=== PATIENT | female | born 1950 | race Caucasian/White ===

== ENCOUNTER 2018-02-10 10:00 | Emergency (ER) | payer OTHER, SELFPAY ==
[2018-02-10 10:03] VITALS: BP 183/64; PULSE 82; RESP 16; TEMP 36.8; O2SAT 98
--- NOTE | 2018-02-10 10:20 | ED.GENADUL_ITS ---
Disposition Clinical Impression: Dysesthesia Disposition: HOME Condition: Good Additional Instructions: May use ibuprofen 600-800 mg every 8 hours, with food, as needed for pain OR may use Aleve 500mg every 12 hours as needed for pain. May use Tylenol 650-975 mg every 4-6 hours, as needed for pain. Total daily dose should not exceed 2000 mg. Please follow-up with Dr. Nur next Wednesday as planned. Begin gabapentin as prescribed this evening. Return to the emergency department for any acute concerns. Prescriptions: Gabapentin 300 mg PO HS #30 capsule Medical Decision Making - Medical Decision Making 67-year-old female presents from home with months of left-sided electric-like pain. She is afebrile, well-appearing, in no acute distress with no focal neurologic deficits on exam. 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 Screening laboratories obtained: Essentially unremarkable, reviewed as per chart. No evidence that there is a new, acute focus problem. This is likely post stroke related. Case discussed with Dr. Nur and will initiate a course of gabapentin. Patient stable for outpatient management with follow-up in neurology clinic. Discussed return precautions with the patient and her at bedside prior to discharge. History of Present Illness - General Chief complaint: GenMedical Stated complaint: PER NANI CORDERO Time Seen by Provider: 02/10/18 10:01 Source: patient, family, RN notes reviewed Mode of arrival: ambulatory Limitations: no limitations - History of Present Illness Initial comments: Her . She states that she has had months of constant, slowly escalating left-sided pain that she describes as sharp and electric-like. It is moderate to severe, minimally improved with Tylenol. It is worse with light tapping from her or pressure. She has not had a rash, fever. She states that she has otherwise been well. No other new medications. No motor weakness, sensory deficit, difficulty with gait or speech - Related Data Zyrtec DAILY 02/01/13 Candesartan Cilexetil 32 mg PO DAILY 04/28/17 MetFORMIN CR [Glucophage Xr] 750 mg PO BID 04/28/17 Pimecrolimus [Elidel] DAILY 04/28/17 Acetaminophen [Tylenol] 650 mg PO Q4H PRN PRN tab 11/10/17 Aspirin 81 mg PO DAILY chew 05/07/17 Magnesium Oxide [Magnesium] 400 mg PO DAILY #30 tablet 05/07/17 Apixaban [Eliquis] 5 mg PO BID #180 tab 09/01/17 Liraglutide [Victoza 2-Felipe] 1.8 mg SQ DAILY ml 09/01/17 Metformin HCl 500 mg PO HS tab-cap 09/01/17 Gabapentin 300 mg PO HS #30 capsule 02/10/18 Allergies Allergy/AdvReac Type Severity Reaction Status Date / Time Iodinated Contrast- Oral and Allergy Severe Anaphylaxsis Unverified 09/01/17 09: 04 IV Dye ( TOLERATED WITH PREMEDS 05/05/17) Petlbdo-Nrx-Euv Reductase Allergy Unverified 09/01/17 09:04 Inhibitor oxycodone HCl [From Percocet] AdvReac CRAZY Unverified 09/01/17 09:04 Review of Systems Other: 6 systems reviewed, otherwise negative Past Medical History - Past Medical History Medical history: CVA/TIA, diabetes, hyperlipidemia, hypertension - Social History Alcohol use: none Drug use: none General Exam - General Limitations: no limitations General appearance: alert, in no apparent distress - Head Head exam: Present: atraumatic, normocephalic - Eye Eye exam: Present: PERRL, EOMI - ENT ENT exam: Present: normal exam - Neck Neck exam: Present: normal inspection, full ROM - Respiratory Respiratory exam: Present: normal lung sounds bilaterally. Absent: respiratory distress - Cardiovascular Cardiovascular Exam: Present: regular rate, normal rhythm, other - GI/Abdominal GI/Abdominal exam: Present: soft. Absent: distended, tenderness - Extremities Exam Extremities exam: Present: normal inspection, normal capillary refill - Neurological Exam Neurological exam: Present: alert, oriented X3, CN II-XII intact, other ( Patient states mild increase in pain with palpation of left arm and leg.). Absent: motor sensory deficit - Psychiatric Psychiatric exam: Present: normal affect, normal mood - Skin Skin exam: Present: warm, dry, intact Course Vital Signs - 24 hr 02/10/18 10:03 Temperature 36.8 C Pulse 82 Respiratory 16 Rate Blood Pressure 183/64 Pulse Oximetry 98
[2018-02-10] MEDS: Ibuprofen 800 MG TAB PO (10:35)
[2018-02-10 10:39] LABS: Abs Immature Grans 0.02 k/cumm (0.0-0.09); Absolute Basophil Count 0.05 k/cumm (0.0-0.2); Absolute Eosinophil Count 0.34 k/cumm (0.0-0.7); Absolute Lymphocyte Count 3.64 k/cumm (1.2-3.4); Absolute Monocyte Count 0.55 k/cumm (0.11-0.7); Basophils % 0.6; HCT 41.6 % (36.0-46.0); HGB 13.8 g/dL (12.0-15.5); Immature Grans % 0.2; Lymphocytes % 42.3; Mean Corp. HGB Concentration 33.2 g/dL (32.0-36.0); Mean Corpuscular Hemoglobin 29.5 pg (27.0-33.0); Mean Corpuscular Volume 88.9 fL (80-95); Mean Platelet Volume 9.6 fL (8.0-11.0); Monocytes % 6.4; Neutrophils % 46.5; Platelet Count 324 x1000/uL (130-400); RBC 4.68 m/cumm (4.00-5.20); RBC Distribution Width 13.6 % (11.7-14.6)
[2018-02-10 10:51] LABS: ALT 24 U/L (12-78); AST 21 U/L (15-37); Albumin 3.6 g/dL (3.4-5.0); Alkaline Phosphatase 58 U/L (46-116); Anion Gap 6.8 mmol/L (3-11); BUN 17 mg/dL (7-18); Bilirubin, Total 0.3 mg/dL (0.2-1.0); C-Reactive Protein 1.83 mg/dL (0.0-0.3); CO2 25.2 mmol/L (21.0-32.0); CREATININE 0.92 mg/dL (0.55-1.02); Calcium 9.6 mg/dL (8.5-10.1); Chloride 105 mmol/L (98-107); Creatine Kinase 90 U/L (26-192); Glucose 185 mg/dL (70-100); Magnesium 1.6 mg/dL (1.8-2.4); Potassium 4.3 mmol/L (3.5-5.1); Sodium 137 mmol/L (136-145); Total Protein 7.5 g/dL (6.4-8.2)
== END 2018-02-10 11:54 | disposition home or self-care (01) ==
PROVIDERS: Emergency Provider Emergency Medicine; PCP Internal Medicine
DX: R20.8 Other disturbances of skin sensation (principal); E11.9 Type 2 diabetes mellitus without complications; Z79.4 Long term (current) use of insulin; I10 Essential (primary) hypertension
CPT/HCPCS: 36415; 80053; 82550; 99283; 83735; 85025; 86140

== ENCOUNTER → 2018-02-16 09:30 | Outpatient (CLI) | payer OTHER, SELFPAY | PROVIDERS: PCP Internal Medicine; Visit Provider Psychiatry & Neurology Neurology | DX: I69.320 Aphasia following cerebral infarction (principal); I69.351 Hemiplegia and hemiparesis following cerebral infarction affecting right dominant side; I69.319 Unspecified symptoms and signs involving cognitive functions following cerebral infarction; I51.7 Cardiomegaly | CPT/HCPCS: 99214 ==

== ENCOUNTER 2018-11-02 21:55 | Outpatient (REF) | payer OTHER, SELFPAY | END 2018-11-02 22:15 | LOC: NCHCN 21:55 | PROVIDERS: PCP Internal Medicine; Visit Provider Nurse Practitioner Family | DX: N39.0 Urinary tract infection, site not specified (principal) | CPT/HCPCS: 87077; 87086; 87186 ==

== ENCOUNTER 2018-11-21 16:17 | Outpatient (REF) | payer OTHER, SELFPAY ==
[2018-11-21 21:37] LABS: Bilirubin Negative (Negative); Blood Moderate (Negative); Clarity Sl Cloudy; Glucose Negative (Negative); Ketones Negative (Negative); Leukocyte Esterase Moderate (Negative); Nitrite Negative (Negative); Urobilinogen 0.2 EU/dL (Up TO 0.2); pH 5.5 (5-8)
[2018-11-21 21:58] LABS: Bacteria Moderate HPF (Negative); C & S Indicated? Yes; Casts Negative LPF (Negative); Crystals Negative HPF (Negative); Epithelial Cells Few HPF (Negative); Mucus Negative (Negative); Other Cells Few Transitional (Negative)
[2018-11-21 21:59] LABS: WBC 20-50 HPF (0-5)
== END 2018-11-21 16:37 ==
LOC: NCHCN 16:17
PROVIDERS: PCP Internal Medicine; Visit Provider Nurse Practitioner Family
DX: N39.0 Urinary tract infection, site not specified (principal)
CPT/HCPCS: 81003; 81015; 87086

== ENCOUNTER 2018-11-22 11:25 | Outpatient (REF) | payer OTHER, SELFPAY | END 2018-11-22 11:45 | LOC: NCHCN 11:25 | PROVIDERS: PCP Internal Medicine; Visit Provider Nurse Practitioner Family | DX: R19.7 Diarrhea, unspecified (principal); N39.0 Urinary tract infection, site not specified | CPT/HCPCS: 87329; 87086; 87177 ==

== ENCOUNTER 2018-12-08 10:32 | Outpatient (CLI) | payer OTHER, SELFPAY ==
--- NOTE | 2018-12-08 11:38 | DI.RAD_ITS ---
SYMPTOM/DIAGNOSIS: OVERFLOW INCONTINENCE, N39.490 DIARRHEA R19.7 KUB: Bowel gas pattern is nonspecific. There is no evidence of gross organomegaly. There is no evidence of a mass. Numerous calcifications in the pelvis would be consistent with calcified phleboliths. SUMMARY: The examination is within normal limits.
== END 2018-12-08 10:52 ==
PROVIDERS: PCP Internal Medicine; Visit Provider Nurse Practitioner Family
DX: N39.490 Overflow incontinence (principal); R19.7 Diarrhea, unspecified
CPT/HCPCS: 74018

== ENCOUNTER 2018-12-08 11:28 | Outpatient (REF) | payer OTHER, SELFPAY ==
[2018-12-08 21:39] LABS: Abs Immature Grans 0.01 k/cumm (0.0-0.09); Absolute Basophil Count 0.02 k/cumm (0.0-0.2); Absolute Eosinophil Count 0.25 k/cumm (0.0-0.7); Absolute Lymphocyte Count 2.84 k/cumm (1.2-3.4); Absolute Monocyte Count 0.62 k/cumm (0.11-0.7); Absolute Neutrophil Count 4.13 k/cumm (1.2-6.7); Basophils % 0.3; Eosinophils % 3.2; HCT 40.5 % (36.0-46.0); HGB 13.5 g/dL (12.0-15.5); Immature Grans % 0.1; Lymphocytes % 36.1; Mean Corp. HGB Concentration 33.3 g/dL (32.0-36.0); Mean Corpuscular Hemoglobin 29.6 pg (27.0-33.0); Mean Corpuscular Volume 88.8 fL (80-95); Mean Platelet Volume 10.9 fL (8.0-11.0); Monocytes % 7.9; Neutrophils % 52.4; Platelet Count 332 x1000/uL (130-400); RBC 4.56 m/cumm (4.00-5.20); RBC Distribution Width 13.5 % (11.7-14.6); White Blood Cell Count 7.87 k/cumm (4.4-10.8)
[2018-12-08 21:45] LABS: ALT 30 U/L (12-78); AST 21 U/L (15-37); Albumin 3.7 g/dL (3.4-5.0); Alkaline Phosphatase 58 U/L (46-116); Anion Gap 12.9 mmol/L (3-11); BUN 22 mg/dL (7-18); Bilirubin, Total 0.4 mg/dL (0.2-1.0); CO2 21.1 mmol/L (21.0-32.0); CREATININE 1.08 mg/dL (0.55-1.02); Calcium 10.2 mg/dL (8.5-10.1); Chloride 109 mmol/L (98-107); Estimated GFR 50.76 (mL/min/1.73m2); Glucose 112 mg/dL (70-100); Potassium 4.6 mmol/L (3.5-5.1); Sodium 143 mmol/L (136-145); Total Protein 6.7 g/dL (6.4-8.2)
== END 2018-12-08 11:48 ==
LOC: NCHCN 11:28
PROVIDERS: PCP Internal Medicine; Visit Provider Nurse Practitioner Family
DX: R19.7 Diarrhea, unspecified (principal); N39.490 Overflow incontinence
CPT/HCPCS: 80053; 87077; 85025; 87086; 87186

== ENCOUNTER 2018-12-09 20:39 | Outpatient (REF) | payer OTHER, SELFPAY | END 2018-12-09 20:59 | LOC: NCHCN 20:39 | PROVIDERS: PCP Internal Medicine; Visit Provider Nurse Practitioner Family | DX: R19.7 Diarrhea, unspecified (principal); N39.490 Overflow incontinence | CPT/HCPCS: 87324 ==

== ENCOUNTER 2019-01-23 00:21 | Outpatient (CLI) | payer OTHER, SELFPAY ==
--- NOTE | 2019-01-23 10:50 | DI.MAMMO_ITS ---
SYMPTOM/DIAGNOSIS: SCREENING, Z12.31 MAMMOGRAMS: Mammograms were interpreted according to the usual protocol including computer analysis with CAD system, tomosynthesis and C view imaging. Comparison is made with exams from [id number]. The breasts are composed of scattered fibroglandular densities, breast density, Category B. No suspicious masses or suspicious microcalcifications are seen. There has been no significant change. IMPRESSION: Category 1, negative mammogram. Yearly screening mammography is recommended. [facility] ASSESSMENT OF FINDINGS: Negative. Category 1. Patient will receive a letter notifying them of these results. BI-RADS category B. There are scattered areas of fibroglandular density.
== END 2019-01-23 00:41 ==
PROVIDERS: PCP Internal Medicine; Visit Provider Nurse Practitioner Family
DX: Z12.31 Encounter for screening mammogram for malignant neoplasm of breast (principal)
CPT/HCPCS: 77063; 77067

== ENCOUNTER → 2019-11-09 10:02 | Outpatient (BNVA) | payer OTHER, SELFPAY | PROVIDERS: PCP Internal Medicine; Referring Provider Internal Medicine; Visit Provider Urology | DX: N39.46 Mixed incontinence (principal); N39.0 Urinary tract infection, site not specified; B96.89 Other specified bacterial agents as the cause of diseases classified elsewhere; Z87.442 Personal history of urinary calculi | CPT/HCPCS: 51701; 99203; 99214 ==

== ENCOUNTER 2019-11-09 13:00 | Outpatient (REF) | payer OTHER, SELFPAY | END 2019-11-09 13:20 | LOC: LBN 13:00 | PROVIDERS: PCP Internal Medicine; Visit Provider Urology | DX: N39.0 Urinary tract infection, site not specified (principal) | CPT/HCPCS: 87077; 87086; 87186 ==

== ENCOUNTER 2019-11-16 02:47 | Outpatient (CLI) | payer OTHER, SELFPAY ==
--- NOTE | 2019-11-16 14:36 | DI.US_ITS ---
EXAM: US RENAL CLINICAL HISTORY: r/o stones/hydronephrosis,RECURRENT UTI,N39.0. TECHNIQUE: Sharma scale, color and spectral Doppler were used. COMPARISON: No exams were available for comparison FINDINGS: Renal size in cm: Right: 10.2 left: 10.5 Echogenicity: Normal Hydronephrosis: No Cyst or mass: Small bilateral renal cysts. The largest at the lower pole of the left kidney measured 1 cm. The largest right renal cysts measure 1.5 x 2.1 cm at the medial right lower pole. Nephrolithiasis: Are few small scattered echogenic foci seen in both kidneys which could represent sm all stones versus artifact. Other findings: None Bladder:Normal. Inadequate evaluation due to suboptimal distension. No mass, stone or wall thicken ing is seen. Prevoid vol: 75 cc Postvoid vol:Not measured IMPRESSION: Small bilateral renal cysts. Question small nonobstructing bilateral renal calculi versus artifact. Inadequate bladder evaluation. DATA REPOSITORY:
== END 2019-11-16 03:07 ==
PROVIDERS: PCP Internal Medicine; Visit Provider Urology
DX: N39.0 Urinary tract infection, site not specified (principal); N28.1 Cyst of kidney, acquired; Z87.442 Personal history of urinary calculi
CPT/HCPCS: 76770

== ENCOUNTER → 2019-11-17 15:31 | Outpatient (BNVA) | payer OTHER, SELFPAY | PROVIDERS: PCP Internal Medicine; Referring Provider Internal Medicine; Visit Provider Urology | DX: N39.0 Urinary tract infection, site not specified (principal); Z87.442 Personal history of urinary calculi; N28.1 Cyst of kidney, acquired | CPT/HCPCS: 99213; 99441 ==

== ENCOUNTER 2019-11-29 19:17 | Outpatient (REF) | payer OTHER, SELFPAY ==
[2019-11-29 21:35] LABS: Anion Gap 13.5 mmol/L (3-11); BUN 29 mg/dL (7-18); CO2 20.5 mmol/L (21.0-32.0); CREATININE 1.33 mg/dL (0.55-1.02); Calcium 10.7 mg/dL (8.5-10.1); Chloride 106 mmol/L (98-107); Estimated GFR 39.79 (mL/min/1.73m2); Glucose 137 mg/dL (74-106); Potassium 4.7 mmol/L (3.5-5.1); Sodium 140 mmol/L (136-145)
== END 2019-11-29 19:37 ==
LOC: NCHCN 19:17
PROVIDERS: PCP Internal Medicine
DX: I10 Essential (primary) hypertension (principal); E11.9 Type 2 diabetes mellitus without complications; E83.52 Hypercalcemia
CPT/HCPCS: 80048

== ENCOUNTER → 2019-12-04 14:25 | Outpatient (BNVA) | payer OTHER, SELFPAY | PROVIDERS: PCP Internal Medicine; Referring Provider Internal Medicine; Visit Provider Nurse Practitioner Gerontology | DX: N39.46 Mixed incontinence (principal); N39.0 Urinary tract infection, site not specified | CPT/HCPCS: 99213 ==

== ENCOUNTER 2019-12-04 18:24 | Outpatient (REF) | payer OTHER, SELFPAY | END 2019-12-04 18:44 | LOC: LBN 18:24 | PROVIDERS: PCP Internal Medicine; Visit Provider Nurse Practitioner Gerontology | DX: N39.0 Urinary tract infection, site not specified (principal) | CPT/HCPCS: 87077; 87086; 87186 ==

== ENCOUNTER 2019-12-11 01:33 | Outpatient (CLI) | payer OTHER, SELFPAY ==
[2019-12-11 16:04] LABS: ALT 28 U/L (14-59); AST 21 U/L (15-37); Albumin 3.8 g/dL (3.4-5.0); Alkaline Phosphatase 55 U/L (46-116); Anion Gap 12.1 mmol/L (3-11); BUN 18 mg/dL (7-18); Bilirubin, Total 0.4 mg/dL (0.2-1.0); CO2 21.9 mmol/L (21.0-32.0); CREATININE 1.17 mg/dL (0.55-1.02); Calcium 10.8 mg/dL (8.5-10.1); Chloride 106 mmol/L (98-107); Estimated GFR 46.14 (mL/min/1.73m2); Glucose 187 mg/dL (74-106); Potassium 4.5 mmol/L (3.5-5.1); Sodium 140 mmol/L (136-145)
[2019-12-12 11:44] LABS: Parathyroid Hormone,Intact 64 pg/mL (19-88)
== END 2019-12-11 01:53 ==
PROVIDERS: PCP Internal Medicine
DX: E83.52 Hypercalcemia (principal)
CPT/HCPCS: 36415; 80053; 83970

== ENCOUNTER → 2020-01-01 10:53 | Outpatient (BNVA) | payer OTHER, SELFPAY | PROVIDERS: PCP Internal Medicine; Referring Provider Internal Medicine; Visit Provider Nurse Practitioner Gerontology | DX: R10.32 Left lower quadrant pain (principal); N39.0 Urinary tract infection, site not specified | CPT/HCPCS: 81003; 99213 ==

== ENCOUNTER 2020-01-16 01:23 | Outpatient (CLI) | payer OTHER, SELFPAY ==
--- NOTE | 2020-01-16 07:15 | DI.US_ITS ---
EXAM: US PELVIS TRANSVAGINAL CLINICAL HISTORY: pelvic pain,R10.2 TECHNIQUE: Transabdominal and transvaginal imaging was performed using standard protocol. COMPARISON: No exams were available for comparison FINDINGS: KIDNEYS: Kidneys are symmetric in size. No evidence of renal calculi. No evidence of hydronephrosis. No renal mass or cyst identified. The patient is status post hysterectomy. The right ovary measures 3.1 x 2.2 x 1.9 cm. The left ovar y measures 2.9 x 2.2 x 2.2 cm. No focal mass or cyst is seen. DOPPLER: Color: Symmetric and uniform flow to both ovaries. No hyperemia. Duplex: Normal ovarian arterial waveforms visualized. CUL-DE-SAC: Free fluid: None. IMPRESSION: Ovaries are mildly enlarged for patient age. No cysts or masses seen. DATA REPOSITORY:
== END 2020-01-16 01:43 ==
PROVIDERS: PCP Internal Medicine; Visit Provider Obstetrics & Gynecology
DX: R10.2 Pelvic and perineal pain (principal); N83.9 Noninflammatory disorder of ovary, fallopian tube and broad ligament, unspecified
CPT/HCPCS: 76830; 76856

== ENCOUNTER 2020-03-01 11:03 | Outpatient (REF) | payer OTHER, SELFPAY ==
[2020-03-01 19:57] LABS: Albumin 3.7 g/dL (3.4-5.0); Anion Gap 12.8 mmol/L (3-11); BUN 21 mg/dL (7-18); CO2 21.2 mmol/L (21.0-32.0); CREATININE 1.08 mg/dL (0.55-1.02); Calcium 10.4 mg/dL (8.5-10.1); Chloride 102 mmol/L (98-107); Glucose 230 mg/dL (74-106); PHOSPHORUS 2.7 mg/dL (2.6-4.7); Potassium 4.7 mmol/L (3.5-5.1); Sodium 136 mmol/L (136-145)
== END 2020-03-01 11:23 ==
LOC: NCHCN 11:03
PROVIDERS: PCP Internal Medicine; Visit Provider Internal Medicine
DX: E83.52 Hypercalcemia (principal); I10 Essential (primary) hypertension
CPT/HCPCS: 80048; 82040; 84100

== ENCOUNTER → 2020-05-10 14:08 | Outpatient (BNVA) | payer OTHER, SELFPAY | PROVIDERS: PCP Internal Medicine; Referring Provider Internal Medicine; Visit Provider Urology | DX: R39.15 Urgency of urination (principal); R39.89 Other symptoms and signs involving the genitourinary system; Z87.440 Personal history of urinary (tract) infections; E11.9 Type 2 diabetes mellitus without complications | CPT/HCPCS: 81003; 99213 ==

== ENCOUNTER → 2020-05-31 17:31 | Outpatient (REF) | payer OTHER, SELFPAY ==
[2020-05-31 22:27] LABS: Anion Gap 13.7 mmol/L (3-11); BUN 26 mg/dL (7-18); CO2 21.3 mmol/L (21.0-32.0); CREATININE 1.21 mg/dL (0.55-1.02); Calcium 10.3 mg/dL (8.5-10.1); Chloride 104 mmol/L (98-107); Cholesterol 129 mg/dL (<200); Estimated GFR 44.25 (mL/min/1.73m2); Glucose 238 mg/dL (74-106); Potassium 4.8 mmol/L (3.5-5.1); Sodium 139 mmol/L (136-145); Triglyceride 233 mg/dL (<150)
[2020-05-31 22:59] LABS: Calculated LDL 41 mg/dL (<100); HDL Cholesterol 42 mg/dL (40-60)
[2020-06-03 11:35] LABS: Vitamin D 25 Total 35.5 ng/ml (30-100)
== END ==
LOC: NCHCN 17:31
PROVIDERS: PCP Internal Medicine; Visit Provider Internal Medicine
DX: E83.52 Hypercalcemia (principal); E78.5 Hyperlipidemia, unspecified
CPT/HCPCS: 80048; 80061; 82306; 84100

== ENCOUNTER 2020-08-30 15:03 | Outpatient (REF) | payer OTHER, SELFPAY ==
[2020-08-30 21:01] LABS: Anion Gap 12.3 mmol/L (3-11); BUN 20 mg/dL (7-18); CO2 21.7 mmol/L (21.0-32.0); CREATININE 1.2 mg/dL (0.55-1.02); Calcium 10.4 mg/dL (8.5-10.1); Chloride 105 mmol/L (98-107); Estimated GFR 44.68 (mL/min/1.73m2); Glucose 227 mg/dL (74-106); Potassium 4.7 mmol/L (3.5-5.1); Sodium 139 mmol/L (136-145)
[2020-09-02 09:33] LABS: Parathyroid Hormone,Intact 100 pg/mL (19-88)
== END 2020-08-30 15:04 | disposition home or self-care (01) ==
LOC: NCHCN 15:03
PROVIDERS: PCP Internal Medicine; Visit Provider Internal Medicine
DX: E83.52 Hypercalcemia (principal)
CPT/HCPCS: 80048; 83970

== ENCOUNTER 2020-09-20 11:56 | Outpatient (REF) | payer OTHER, SELFPAY ==
[2020-09-21 16:55] LABS: COVID-19 RT-PCR UVMMC Result Negative (Negative)
== END 2020-09-20 11:57 | disposition home or self-care (01) ==
LOC: NCHCN 11:56
PROVIDERS: PCP Internal Medicine; Visit Provider Internal Medicine
DX: Z20.822 Contact with and (suspected) exposure to COVID-19 (principal)
CPT/HCPCS: U0003

== ENCOUNTER 2020-10-23 02:24 | Outpatient (CLI) | payer OTHER, SELFPAY ==
--- NOTE | 2020-10-23 | DI.DEXA_ITS ---
Exam(s) XR DEXA BONE DENSITY W/WO DENA EXAM: XR DEXA BONE DENSITY W/WO DENA CLINICAL HISTORY: OSTEOPENIA,M85.80,HYPERCALCEMIA,E83.52,HYPERPARATHYROIDISM,E21.0 TECHNIQUE: COMPARISON: There are priors for comparison. The most recent is 09/21/2017. FINDINGS: Lateral Spine Image: Unremarkable. No compression deformities identified. Left hip: Total T-Score: -0.3. This compares to -0.2 on the prior examination. Total Z-Score: 1.2 T- and Z-scores: Within normal limits. Lumbar Spine: Total T-Score: 0.5. This compares with 0.3 on the prior examination. Total Z-Score: 2.5 T- and Z-scores: Within normal limits. IMPRESSION: No evidence of osteoporosis.
== END 2020-10-23 02:44 ==
PROVIDERS: PCP Internal Medicine; Visit Provider Nurse Practitioner Family
DX: M85.88 Other specified disorders of bone density and structure, other site (principal); E83.52 Hypercalcemia; E21.0 Primary hyperparathyroidism
CPT/HCPCS: 77080

== ENCOUNTER 2020-12-18 01:53 | Outpatient (CLI) | payer OTHER, SELFPAY ==
--- NOTE | 2020-12-18 10:30 | DI.US_ITS ---
APPROVED REPORT EXAM: Comprehensive 2D, Doppler, and color-flow Echocardiogram Patient Location: Out-Patient Construction Carpenter: Aide Graham RDCS (AE) Indications: Dilated Cardiomyopathy Other Information Study Quality: Adequate Conclusion Left Ventricle : The left ventricle is normal size. The left ventricular systolic function is normal. The left ventricular ejection fraction is within the normal range. Severe concentric left ventricula r hypertrophy. There is normal LV segmental wall motion. The left ventricular diastolic function is a bnormal. LVEF is 55%. Right Ventricle : The right ventricle is normal size. The right ventricular systolic function is norm al. Atria : The left atrium size is normal. The right atrium size is normal. Great Vessels : The aortic root is normal in size. The ascending aorta is mildly dilated. Aortic arch is not well visualized. IVC is normal in size and collapses >50% with inspiration. Compared to study from 04/29/2017, there is no significant change. Wall motion Left Ventricle The left ventricle is normal size. The left ventricular systolic function is normal. The left ventric ular ejection fraction is within the normal range. Severe concentric left ventricular hypertrophy. Th ere is normal LV segmental wall motion. The left ventricular diastolic function is abnormal. There is no ventricular septal defect visualized. LVEF is 55%. Right Ventricle The right ventricle is normal size. The right ventricular systolic function is normal. Atria The left atrium size is normal. The right atrium size is normal. The interatrial septum is intact wit h no evidence for an atrial septal defect. Aortic Valve Aortic valve is calcified. Aortic valve is trileaflet. Mild aortic stenosis. No aortic regurgitation is present. Mitral Valve Moderate mitral annular calcification. No evidence of mitral valve stenosis. Trace mitral regurgitati on. Tricuspid Valve The tricuspid valve is normal in structure. There is no tricuspid valve stenosis. Trace tricuspid reg urgitation. Unable to assess PA pressure. Pulmonic Valve The pulmonary valve is normal in structure. There is no pulmonic valvular stenosis. There is no pulmo lee valvular regurgitation. Great Vessels The aortic root is normal in size. The ascending aorta is mildly dilated. Aortic arch is not well vis ualized. IVC is normal in size and collapses >50% with inspiration. Pericardium There is no pericardial effusion. 2D Dimensions IVSD d PLAX 1.35 cm F: 0.6-1.0 LV Vol A2C d MOD 117.1 mL LVPW d PLAX 1.35 cm F: 0.6 - 1.0 LV Vol A4C d MOD 113.4 mL LVID d PLAX 4.06 cm F: 3.8 - 5.2 LA vol/ BSA A2C s A-L 26.5 mL/m2 LVDs 2.85 cm F: 2.2 - 3.5 LA vol/ BSA A4C s A-L 22.8 mL/m2 Ao Root d 2.71 cm F: 2.7 - 3.3 LA Vol/ BSA Biplane s A-L 25.2 mL/m2 RA Area A4C 9.68 cm2 LA Area A4C s MOD 15.85 cm2 RA Vol/ BSA A4C s A-L 10.6 mL/m2 LA Area A2C s MOD 16.66 cm2 Ao Asc Diam d 3.57 cm F: 2.3 - 3.1 LV EF A4C MOD 55.7 % LV EF Teichholz 56.3 % LV EF A2C MOD 55.3 % LVEF (Lion's) 54.10 % F: 54 - 74 LV EF Biplane MOD 54.1 % LV Volume 93.12 mL F: 46 - 106 SV 64.86 mL LV Volume Index 51.73 mL/m2 F: 29 - 61 SV Index 35.89 mL/m2 LV Vol Biplane MOD 119.9 mL FS 29.00 % M-Mode TAPSE 1.56 cm (M/F) >1.7 LV Diastology MV E' medial 0.033 (>0.07 m/s) E/A Ratio 0.8 LV E/e MED 30.30 (<14) MV E Vmax 1.01 (0.4-1.3 m/s) MV E' lateral 0.042 (>0.1 m/s) MV A Vmax 1.25 (0.4-1.3 m/s) LV E/e LAT 23.85 (<14) MV E/A Ratio 0.80 MV E/E' medial 30.30 MV E/E' lateral 23.89 Aortic Valve LVOT Area 3.04 cm2 AoV Area Vmax 1.57 cm2 LVOT Vmax 1.08 m/s AoV Area/ BSA (Vmax) 0.87 cm2/m2 LVOT Mean Fernando. 0.78 m/s JAC Mean Fernando. 1.67 cm2 LVOT Peak Grad 4.7 mmHg JAC Mean Fernando. Index 0.92 cm2/m2 LVOT Mean Grad 2.7 mmHg LVOT VTI 0.198 m LVOT Diam s 1.95 cm AoV Vmax 2.09 m/s Velocity Ratio 0.51 AoV Mean Fernando. 1.43 m/s AoV Peak Grad 17.5 mmHg LVOT SV 60.11 mL AoV Mean Grad 9.4 mmHg AoV VTI 0.316 m AoV Area VTI 1.90 cm2 AoV Area/ BSA (VTI) 1.05 cm/m2 Mitral Valve MV DT 285 (160-240 msec) MV PHT 83 msec MV Area PHT 2.67 cm2 MV VTI 0.374 m MV Area VTI 1.61 (4.0-6.0 cm2) Pulmonary Valve PV Vmax 1.04 (0.5-1.5 m/s) RVOT Peak Gr. 3.25 mmHg PV Peak Grad 4.3 mmHg RVOT Mean Gr. 1.45 mmHg PV Mean Grad 3.2 mmHg RVOT VTI 0.119 m PV VTI 0.225 m RVOT Vmax 0.90 m/s
== END 2020-12-18 02:13 ==
PROVIDERS: PCP Internal Medicine; Visit Provider Nurse Practitioner Family
DX: I42.0 Dilated cardiomyopathy (principal); I77.810 Thoracic aortic ectasia
CPT/HCPCS: 93306

== ENCOUNTER 2020-12-27 04:18 | Outpatient (CLI) | payer OTHER, SELFPAY ==
--- NOTE | 2020-12-27 | DI.MAMMO_ITS ---
Exam(s) MAMMO SCREENING EXAM: MAMMO SCREENING CLINICAL HISTORY: SCREENING, Z12.31 TECHNIQUE: Mammograms were interpreted according to the usual protocol including computer analysis w PANOSOL CAD system, tomosynthesis and C-view imaging. COMPARISON: 2012 through 2018 FINDINGS: The breasts are composed of scattered fibroglandular densities, Breast Density category B. No suspicious masses or suspicious microcalcifications are seen. No skin thickening or abnormal axillary lymph nodes are seen. There has been no significant change from prior exams. IMPRESSION: BI-RADS Category 1, Negative mammogram Yearly screening mammography is recommended. Breast Density - Category B, scattered fibroglandular densities. A negative radiographic report should not delay biopsy if a dominant or clinically suspicious mass is present. Up to ten percent of cancers are not identified on mammography. A negative report may reinforce clinical impression. Adenosis and dense breasts may obscure an underlying neoplasm. False positive reports average 6 to 10%. Patient will receive a letter notifying them of these results.
== END 2020-12-27 04:38 ==
PROVIDERS: PCP Internal Medicine; Visit Provider Internal Medicine
DX: Z12.31 Encounter for screening mammogram for malignant neoplasm of breast (principal); R92.8 Other abnormal and inconclusive findings on diagnostic imaging of breast
CPT/HCPCS: 77063; 77067

== ENCOUNTER → 2021-01-09 13:40 | Outpatient (BNVA) | payer OTHER, SELFPAY | PROVIDERS: PCP Internal Medicine; Referring Provider Nurse Practitioner Family; Visit Provider Psychiatry & Neurology Neurology | DX: R25.1 Tremor, unspecified (principal); Z86.73 Personal history of transient ischemic attack (TIA), and cerebral infarction without residual deficits; E11.9 Type 2 diabetes mellitus without complications; I63.512 Cerebral infarction due to unspecified occlusion or stenosis of left middle cerebral artery; I48.91 Unspecified atrial fibrillation; J45.909 Unspecified asthma, uncomplicated; F32.9 Major depressive disorder, single episode, unspecified | CPT/HCPCS: 99215; G2212 ==

== ENCOUNTER 2021-04-10 07:46 | Outpatient (REF) | payer MEDICARE, SELFPAY ==
[2021-04-10 23:07] LABS: Anion Gap 10.6 mmol/L (3-11); BUN 22 mg/dL (7-18); CO2 23.4 mmol/L (21.0-32.0); CREATININE 1.1 mg/dL (0.55-1.02); Calcium 10.7 mg/dL (8.5-10.1); Chloride 106 mmol/L (98-107); Estimated GFR 49.39 (mL/min/1.73m2); Glucose 171 mg/dL (74-106); Potassium 4.7 mmol/L (3.5-5.1); Sodium 140 mmol/L (136-145)
== END 2021-04-10 07:47 | disposition home or self-care (01) ==
LOC: NCHCN 07:46
PROVIDERS: PCP Internal Medicine; Visit Provider Internal Medicine
DX: I10 Essential (primary) hypertension (principal); E11.9 Type 2 diabetes mellitus without complications; E78.5 Hyperlipidemia, unspecified; E83.52 Hypercalcemia; I51.9 Heart disease, unspecified
CPT/HCPCS: 80048

== ENCOUNTER → 2021-08-04 12:41 | Outpatient (BNVA) | payer MEDICARE, SELFPAY | PROVIDERS: PCP Internal Medicine; Referring Provider Internal Medicine; Visit Provider Psychiatry & Neurology Neurology | DX: I48.0 Paroxysmal atrial fibrillation (principal); I69.393 Ataxia following cerebral infarction; I69.320 Aphasia following cerebral infarction; I69.318 Other symptoms and signs involving cognitive functions following cerebral infarction; I69.398 Other sequelae of cerebral infarction; R25.8 Other abnormal involuntary movements; M79.605 Pain in left leg; M54.12 Radiculopathy, cervical region; E11.8 Type 2 diabetes mellitus with unspecified complications; E11.65 Type 2 diabetes mellitus with hyperglycemia | CPT/HCPCS: 99215 ==

== ENCOUNTER → 2021-08-13 00:37 | Outpatient (CLI) | payer MEDICARE, SELFPAY ==
--- NOTE | 2021-08-13 06:30 | DI.MRI_ITS ---
Exam(s) MR BRAIN WO EXAM: MR BRAIN WO CLINICAL HISTORY: memory loss; h/o strokes,r41.3 TECHNIQUE: Multiplanar multisequence MRI of the brain was performed. COMPARISON: MR MRI - BRAIN W/WO CONTRAST from 05/03/2017 FINDINGS: VENTRICLES AND EXTRA AXIAL SPACES: Normal in size and morphology for the patient's age. MIDLINE SHIFT: None. CEREBRAL PARENCHYMA: No focus of restricted diffusion to suggest acute infarct. No space-occupying le gildardo identified. Mild atrophy. Numerous high signal foci in both cerebral hemispheres consistent wit h chronic microvascular disease. HEMORRHAGE: None. BRAINSTEM/CEREBELLUM: Normal. Orbits: Unremarkable. VISUALIZED PARANASAL SINUSES/MASTOIDS:Clear. [place]: Normal flow void. PITUITARY GLAND: Unremarkable. IMPRESSION: Atrophy and white matter changes consistent with chronic microvascular changes. No acute abnormality . DATA REPOSITORY:
== END ==
PROVIDERS: PCP Internal Medicine; Visit Provider Psychiatry & Neurology Neurology
DX: R41.3 Other amnesia (principal); G31.89 Other specified degenerative diseases of nervous system; R90.82 White matter disease, unspecified; Z86.73 Personal history of transient ischemic attack (TIA), and cerebral infarction without residual deficits
CPT/HCPCS: 70551

== ENCOUNTER → 2021-09-02 11:10 | Outpatient (BNVA) | payer MEDICARE, SELFPAY | PROVIDERS: PCP Internal Medicine; Referring Provider Internal Medicine; Visit Provider Psychiatry & Neurology Neurology | DX: I69.398 Other sequelae of cerebral infarction (principal); I69.393 Ataxia following cerebral infarction; I69.320 Aphasia following cerebral infarction; I48.0 Paroxysmal atrial fibrillation; K59.00 Constipation, unspecified | CPT/HCPCS: 99214 ==

== ENCOUNTER 2021-09-03 19:23 | Outpatient (REF) | payer MEDICARE, SELFPAY ==
[2021-09-03 20:45] LABS: TSH (W/Ref FT4) 2.03 uIU/mL (0.36-3.74)
== END 2021-09-03 19:24 | disposition home or self-care (01) ==
LOC: NCHCN 19:23
PROVIDERS: PCP Internal Medicine; Visit Provider Internal Medicine
DX: E21.3 Hyperparathyroidism, unspecified (principal); E11.65 Type 2 diabetes mellitus with hyperglycemia
CPT/HCPCS: 84443

== ENCOUNTER 2021-10-27 18:39 | Outpatient (REF) | payer MEDICARE, SELFPAY ==
[2021-10-27 22:15] LABS: Vitamin B12 1999 pg/mL (193-986)
== END 2021-10-27 18:40 | disposition home or self-care (01) ==
LOC: NCHCN 18:39
PROVIDERS: PCP Internal Medicine; Visit Provider Internal Medicine
DX: E53.8 Deficiency of other specified B group vitamins (principal)
CPT/HCPCS: 82607

== ENCOUNTER → 2021-11-04 10:55 | Outpatient (BNVA) | payer MEDICARE, SELFPAY | PROVIDERS: PCP Internal Medicine; Referring Provider Internal Medicine; Visit Provider Psychiatry & Neurology Neurology | DX: I48.0 Paroxysmal atrial fibrillation (principal); I69.320 Aphasia following cerebral infarction; I69.318 Other symptoms and signs involving cognitive functions following cerebral infarction; I69.393 Ataxia following cerebral infarction; Z79.01 Long term (current) use of anticoagulants; G25.0 Essential tremor; M54.12 Radiculopathy, cervical region; R41.3 Other amnesia | CPT/HCPCS: 99214 ==

== ENCOUNTER 2022-02-03 10:32 | Outpatient (REF) | payer MEDICARE, SELFPAY ==
[2022-02-03 16:37] LABS: Anion Gap 10.2 mmol/L (3-11); BUN 22 mg/dL (7-18); CO2 21.8 mmol/L (21.0-32.0); CREATININE 0.9 mg/dL (0.55-1.02); Calcium 9.8 mg/dL (8.5-10.1); Chloride 107 mmol/L (98-107); Glucose 149 mg/dL (74-106); Potassium 4.6 mmol/L (3.5-5.1); Sodium 139 mmol/L (136-145)
== END 2022-02-03 10:33 | disposition home or self-care (01) ==
LOC: NCHCN 10:32
PROVIDERS: PCP Internal Medicine; Visit Provider Internal Medicine
DX: E78.5 Hyperlipidemia, unspecified (principal); E83.52 Hypercalcemia; I48.0 Paroxysmal atrial fibrillation
CPT/HCPCS: 80048

== ENCOUNTER → 2022-02-03 10:49 | Outpatient (BNVA) | payer MEDICARE, SELFPAY | PROVIDERS: PCP Internal Medicine; Referring Provider Internal Medicine; Visit Provider Psychiatry & Neurology Neurology | DX: I69.341 Monoplegia of lower limb following cerebral infarction affecting right dominant side (principal); I69.393 Ataxia following cerebral infarction; I69.398 Other sequelae of cerebral infarction; G25.0 Essential tremor; M79.2 Neuralgia and neuritis, unspecified; F41.3 Other mixed anxiety disorders | CPT/HCPCS: 99214 ==

== ENCOUNTER → 2022-08-04 09:43 | Outpatient (BNVA) | payer MEDICARE, SELFPAY | PROVIDERS: PCP Internal Medicine; Referring Provider Internal Medicine; Visit Provider Psychiatry & Neurology Neurology | DX: I69.341 Monoplegia of lower limb following cerebral infarction affecting right dominant side (principal); I69.320 Aphasia following cerebral infarction; I69.390 Apraxia following cerebral infarction; I69.318 Other symptoms and signs involving cognitive functions following cerebral infarction; I69.334 Monoplegia of upper limb following cerebral infarction affecting left non-dominant side; R25.1 Tremor, unspecified; I69.398 Other sequelae of cerebral infarction; M54.32 Sciatica, left side; M54.12 Radiculopathy, cervical region; R41.3 Other amnesia; R25.8 Other abnormal involuntary movements | CPT/HCPCS: 99214 ==

== ENCOUNTER 2022-09-14 10:12 | Observation (INO) | payer MEDICARE, SELFPAY ==
[2022-09-14] VITALS (89 sets, daily range): BP systolic 122–189; BP diastolic 51–101; PULSE 46–83; RESP 9–31; TEMP 35.8–36.7; O2SAT 97–98
--- NOTE | 2022-09-14 10:15 | RT.EKG_ITS ---
APPROVED REPORT Exam: Resting ECG Reason for Exam: stroke symptoms Patient Location: E HR:60 bpm ECG Measurements Heart Rate 60 AXIS NE 81 P 0 QRSd 118 QRS -38 QT 454 T 150 QTc 480 Conclusion Sinus rhythm...normal P axis, V-rate 60- 99 Sinus pause...long R-R interval, normal QRSd Incomplete left bundle branch block...QRSd>110mS, terminal axis(-90,-1) LVH with secondary repolarization abnormality...multi-LVH criteria, abnrm ST-T irregular rhythm, left axis, LVH, consider PAC wth compensatory pause, repol in I aVL unchanged from prior
--- NOTE | 2022-09-14 10:25 | DI.CT_ITS ---
Exam(s) CT HEAD WO EXAM: CT HEAD WO CLINICAL HISTORY: right leg heaviness hx of cva. TECHNIQUE: Imaging Protocol: Axial computed tomography images with coronal and sagittal reformatted images were created and reviewed COMPARISON: CT HEAD WITHOUT CONTRAST from 05/01/2017 CT CTA BRAIN AND NECK from 05/05/2017 MR MR BRAIN WO from 08/13/2021 FINDINGS: Ventricles and Extra axial spaces: Normal in size and morphology for the patient's age. Hemorrhage: None. Cerebral parenchyma: Mild atrophy. White matter changes consistent with small vessel disease. Midline shift: None. Brainstem/Cerebellum: Normal. Calvarium: Normal. Visualized Paranasal sinuses/Mastoids: Clear. IMPRESSION: No acute abnormality. RADIATION DOSE DELIVERED: 755.22mGy.cm Total DLP 755.22mGy.cm Total DLP DATA REPOSITORY: All CT scans at this facility are submitted to the National Radiology Data Registry (NRDR) Dose Index Registry (DIR) with the [employer] ([employer]). RADIATION OPTIMIZATION: All CT scans at this facility use at least one of these dose optimization te chniques: automated exposure control; mA and/or kV adjustment per patient size (includes targeted exa ms where dose is matched to clinical indication); or iterative reconstruction.
--- NOTE | 2022-09-14 10:26 | W.ED.GENAD ---
Discharge Plan Discharge Details Chief Complaint: CVA/TIA Primary Care Provider: Bryant Crain ED Provider: Jesse Ferrer Home Meds and New Rx's Prescriptions: No Action cholecalciferol (vitamin D3) 25 mcg (1,000 unit) capsule 25 mcg PO DAILY cyanocobalamin (vitamin B-12) 5,000 mcg capsule 1,000 mcg PO DAILY pregabalin 100 mg capsule 100 mg PO BID Qty: 180 3RF Patient Comments: Pt no longer uses- switched back to gabapentin 09/14/2022 CT Eliquis 5 MG tablet 5 mg PO BID Qty: 180 3RF metformin 750 mg tablet extended release 24 hr 750 mg PO BID Rx Instructions: take with Metformin 500 mg tab cetirizine [Zyrtec] 10 mg tablet 10 mg PO DAILY Repatha Syringe 140 mg/mL syringe 140 mg subcut Q2W (DME) pen needle, diabetic Needle See Rx Instructions .ROUTE .MEDSUPPLY Qty: 1 Rx Instructions: As directed magnesium oxide 400 mg (241.3 mg magnesium) tablet 400 mg PO DAILY insulin lispro [Humalog KwikPen Insulin] 100 unit/mL insulin pen See Rx Instructions subcut DIRECTED Rx Instructions: per sliding scale subcut as directed; insulin glargine [Lantus U-100 Insulin] 100 unit/mL solution 30 unit SC QHS Patient Comments: says she takes 31U in am - 09/02/21 Ozempic 1 mg/dose (2 mg/1.5 mL) pen injector 2 mg subcut QWEEK candesartan 32 MG tablet 32 mg PO DAILY acetaminophen [Tylenol] 325 MG tablet 650 mg PO Q4H PRN PRN (Reason: fever,pain) 0RF gabapentin 300 mg capsule 600 mg PO BID Patient Comments: TAKE 2 CAPSULES TWICE A DAY gabapentin 100 mg Capsule 100 mg PO DAILY PRN Medical Decision Making 72-year-old female history of prior CVA with left-sided residual deficits presents with right leg heaviness that she first noticed upon waking up this morning. Ambulatory afebrile nontoxic no signs of trauma. 5 and 5 strength right upper right lower and left lower extremity, 4+ out of 5 strength left upper extremity. Cranial nerves intact normal speech. Recent neurology notes shows patient has had some sensory issues in her right lower extremity in the past. Consider residual from prior CVA which was thromboembolic in nature. Must also consider acute CVA versus intracranial hemorrhage given 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 and prior CVAs. Lower suspicion for ACS or electrolyte abnormality. Must also consider peripheral neuropathy. Screening labs CT CTA head neck EKG. Fingerstick normal. Disposition pending reassessment. 16: 36 CT and MRI negative for acute stroke patient symptoms have resolved. As patient was waiting in department telemetry monitoring showed irregular baseline concerning for V. tach/torsades with fusion beats versus a flutter with variable conduction. A troponin and magnesium was added, patient's troponin elevated to above 140, downtrending upon second troponin to 136 however given baseline EKG which could be type II heart block versus sinus bradycardia as well as abnormal telemetry monitoring have placed consultation to [facility] cardiology. Patient will likely benefit from admission serial troponin echo further cardiac evaluation. Patient remains asymptomatic no chest pain or shortness of breath no lightheadedness. Neurologically intact. HPI General Date/Time Provider Initiated Documentation: 09/14/22 10:19. HPI Narrative: 72-year-old female history of prior CVA with left-sided residual deficits and possible right lower extremity involvement in the past presents with right leg heavy sensation that she noticed upon waking up at 8 AM this morning. He is able to walk. Denies headache nausea vomiting chest pain or shortness of breath. Patient is currently anticoagulated for A-fib and is currently taking Eliquis Related Data Home Medications Medication Instructions Recorded Confirmed candesartan 32 mg tablet 32 mg PO DAILY 04/28/17 09/14/22 acetaminophen 325 mg tablet 650 mg PO Q4H PRN PRN fever,pain 04/30/17 09/14/22 (Tylenol) apixaban 5 mg tablet (Eliquis) 5 mg PO BID #180 tabs 09/01/17 09/14/22 cetirizine 10 mg tablet (Zyrtec) 10 mg PO DAILY 10/25/19 09/14/22 metformin 750 mg tablet,extended 750 mg PO BID 10/25/19 09/14/22 release 24 hr evolocumab 140 mg/mL subcutaneous 140 mg subcut Q2W 12/12/20 09/14/22 syringe (Repatha Syringe) magnesium oxide 400 mg (241.3 mg 400 mg PO DAILY 12/12/20 09/14/22 magnesium) tablet pen needle, diabetic ##1 12/12/20 08/04/22 insulin lispro 100 unit/mL See Rx Instructions subcut 08/04/21 09/14/22 subcutaneous pen (Humalog KwikPen DIRECTED (U-100) Insulin) cholecalciferol (vitamin D3) 25 25 mcg PO DAILY 09/02/21 09/14/22 mcg (1,000 unit) capsule cyanocobalamin (vitamin B-12) 1,000 mcg PO DAILY 02/03/22 09/14/22 5,000 mcg capsule insulin glargine 100 unit/mL 30 unit subcut QHS 02/03/22 09/14/22 subcutaneous solution (Lantus U-100 Insulin) semaglutide 1 mg/dose (2 mg/1.5 2 mg subcut QWEEK 02/03/22 09/14/22 mL) subcutaneous pen injector (Ozempic) pregabalin 100 mg capsule 100 mg PO BID #180 caps 08/04/22 08/04/22 gabapentin 100 mg capsule 100 mg PO DAILY PRN 09/14/22 09/14/22 gabapentin 300 mg capsule 600 mg PO BID 09/14/22 09/14/22 Previous Rx's Medication Instructions Recorded acetaminophen 325 mg tablet 650 mg PO Q4H PRN PRN fever,pain 04/30/17 (Tylenol) apixaban 5 mg tablet (Eliquis) 5 mg PO BID #180 tabs 09/01/17 pregabalin 100 mg capsule 100 mg PO BID #180 caps 08/04/22 Allergies Allergy/AdvReac Type Severity Reaction Status Date / Time Iodinated Contrast Media Allergy Severe Anaphylaxsis Verified 09/14/22 10:54 [Iodinated Contrast- Oral ( and IV Dye] TOLERATED WITH PREMEDS 05/05/17) atenolol Allergy Mild Verified 09/14/22 10:54 ezetimibe [From Zetia] Allergy Mild Verified 09/14/22 10:54 hydroxychloroquine Allergy Mild Verified 09/14/22 10:54 [From Plaquenil] lisinopril Allergy Mild Verified 09/14/22 10:54 losartan [From Cozaar] Allergy Mild Verified 09/14/22 10:54 cephalexin Allergy Rash Verified 09/14/22 10:54 ciprofloxacin Allergy Verified 09/14/22 10:54 [id number] Reductase Allergy Verified 09/14/22 10:54 Inhibitor [Thbzlhe-Szy-Siu Reductase Inhibitor] oxycodone HCl [From Percocet] PietroReloreto DOWELL Verified 09/14/22 10:54 General Stated Complaint: CVA/TIA KATHLEEN: 3 Review of Systems Narrative: Review of Systems Constitutional: negative Eyes: negative ENT: negative Cardiovascular: negative Respiratory: negative Gastrointestinal: negative : negative Musculoskeletal: negative Skin: negative Neurologic: Right leg heaviness Psych: negative PFSH All Active Problems Bradykinesia (Acute) Memory problem (Acute) Cervical radiculopathy (Acute) Sciatica (Acute) Neuropathic pain (Acute) Tremor (Acute) Abnormal movements (Acute) Actinic keratosis (Acute) History of CVA (cerebrovascular accident) (Acute) Pelvic pain in female (Acute) Squamous cell skin cancer (Acute) Granulomatous disorder of the skin and subcutaneous tissue, unspecified (Acute) Mixed stress and urge urinary incontinence (Acute) History of kidney stones (Acute) Recurrent UTI (urinary tract infection) (Acute) Left acute arterial ischemic stroke, MCA (middle cerebral artery) (Acute) Diabetes mellitus type 2, uncontrolled, with complications (Acute) Hyperlipidemia associated with type 2 diabetes mellitus (Acute) Hypertension associated with diabetes (Acute) ESE (acute kidney injury) (Acute) Allergic to IV contrast (Acute) Pain in right lower leg (Acute) Medical History Acne rosacea Adequate 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 on anticoagulant therapy Adjustment disorder with mixed anxiety and depressed mood Allergic rhinitis Asthma Atypical chest pain Carcinoma of skin CVA (cerebral vascular accident) Diabetic peripheral neuropathy Diarrhea H/O urinary frequency Hypercalcemia Hyperlipidemia Hyperparathyroidism Hypertension Intermittent asthma Microalbuminuria Myalgia Overflow incontinence Paroxysmal atrial fibrillation Peripheral neuropathy Reactive depression Type 2 diabetes mellitus Urge urinary incontinence Urinary incontinence Weakness of foot Surgical History Abdominal hysterectomy bladder repair,open Hx of colonoscopy Family History Other Diabetes Hyperlipidemia Hypertension Social History Smoking/Tobacco Use Status: Never Smoking risk assessment performed?: Yes Alcohol Intake: never Drug use: Never Substance use type: does not use Household members: spouse Housing: house Number of Children: 3 number of grandchildren: 7 Pets and animals: No Current gender identity: female What is your relationship status?: Panel score (0-1 are the most socially isolated patients): 1 What type of physical activity do you participate in: swimming Seatbelt use: always Do you feel safe at home: Yes Do you feel safe in your relationship?: Yes Exam Narrative Exam Narrative: Physical Examination General: alert, awake, cooperative, resting comfortably, no acute distress HEENT: normocephalic, atraumatic; PERRL, EOM intact, conjunctiva normal; no nasal discharge; moist mucous membranes, oral and pharyngeal mucosa normal, tolerating secretions Neck: supple, trachea midline; full ROM Chest: normal to inspection Respiratory: normal respiratory effort, speaking in full sentences, clear to auscultation, no wheezing, rales or rhonchi Cardiac: regular rate, regular rhythm, S1S2 intact, no murmurs rubs or gallops GI: abdomen soft, non-tender, non-distended; no palpable mass or hepatosplenomegaly Skin: no lesions, rashes or trauma appreciated Neuro: AAOx3, normal speech, moving all extremities; 5 out of 5 strength right upper right lower and left lower extremity, 4+ out of 5 strength left upper extremity; cranial nerves intact, normal speech; patient ambulatory on arrival Extremities: No signs of trauma, warm well perfused extremities, ambulatory Psych: Appropriate mood and affect Course Vital Signs Vital signs: Vital Signs Temperature 35.8 C L 09/14/22 10:16 Pulse 65 09/14/22 10:16 Respiratory Rate 16 09/14/22 10:16 Blood Pressure 163/84 H 09/14/22 10:16 Pulse Oximetry 97 09/14/22 10:16 Temperature 35.8 C L 09/14/22 10:16 Temperature Source Tympanic 09/14/22 10:16 Pulse 65 09/14/22 10:16 Respiratory Rate 16 09/14/22 10:16 Blood Pressure 163/84 H 09/14/22 10:16 Blood Pressure Position Sitting 09/14/22 10:16 Pulse Oximetry 97 09/14/22 10:16 Oxygen Delivery Method Room Air 09/14/22 10:16 Oxygen Flow Rate 0 09/14/22 10:16
[2022-09-14 10:32] LABS: Abs Immature Grans 0.02 10^3/uL (0.0-0.06); Absolute Basophil Count 0.07 10^3/uL (0.0-0.2); Absolute Eosinophil Count 0.25 10^3/uL (0.0-0.7); Absolute Lymphocyte Count 3.67 10^3/uL (1.2-3.4); Absolute Neutrophil Count 3.83 10^3/uL (1.2-6.7); Basophils % 0.8; Eosinophils % 2.9; HCT 42.6 % (36.0-46.0); HGB 14.2 g/dL (11.2-15.7); Immature Grans % 0.2; MCH 30.3 pg (27.0-33.0); MCHC 33.3 % (32.0-36.0); MCV 91 fL (80-95); MPV 10.1 fL (8.0-11.0); Monocytes % 8.2; Neutrophils % 44.9; Platelet Count 331 10^3/uL (130-400); RBC 4.69 10^6/uL (3.93-5.22); RDW 13.5 % (11.7-14.6); RDW-SD 44.4 fL; WBC 8.54 10^3/uL (4.4-10.8)
--- NOTE | 2022-09-14 10:45 | DI.MRI_ITS ---
Exam(s) MR BRAIN WO EXAM: MR BRAIN WO CLINICAL HISTORY: right lower extremity heaviness, hx of cva. TECHNIQUE: Multiplanar multisequence MRI of the brain was performed. CONTRAST MATERIAL: Noncontrast COMPARISON: MR MR BRAIN WO from 08/13/2021 FINDINGS: VENTRICLES AND EXTRA AXIAL SPACES: Normal in size and morphology for the patient's age. HEMORRHAGE: None. CEREBRAL PARENCHYMA: Stable scattered high signal foci in the white matter both cerebral hemispheres consistent with chronic microvascular changes. No focus of restricted diffusion to suggest acute inf arct. No space-occupying lesion identified. MIDLINE SHIFT: None. BRAINSTEM/CEREBELLUM: Normal. CALVARIUM: Normal. VISUALIZED PARANASAL SINUSES/MASTOIDS: Clear. OTHER FINDINGS: None. IMPRESSION: Chronic white matter changes. No acute abnormality. DATA REPOSITORY:
[2022-09-14 10:47] LABS: INR 1.1 (0.9-1.1); PTT Activated 27.1 sec (21.5-31.9)
[2022-09-14 10:53] LABS: ALT 27 U/L (14-59); AST 21 U/L (15-37); Alkaline Phosphatase 53 U/L (46-116); Anion Gap 7.1 mmol/L (3-11); BUN 19 mg/dL (7-18); Bilirubin, Total 0.5 mg/dL (0.2-1.0); CO2 26.9 mmol/L (21.0-32.0); CREATININE 1.1 mg/dL (0.55-1.02); Calcium 10.6 mg/dL (8.5-10.1); Chloride 108 mmol/L (98-107); Estimated GFR 54.06 (mL/min/1.73m2); Glucose 133 mg/dL (74-106); Potassium 4.3 mmol/L (3.5-5.1); Sodium 142 mmol/L (136-145); Total Protein 7.4 g/dL (6.4-8.2)
[2022-09-14 13:38] LABS: Magnesium 1.8 mg/dL (1.8-2.4)
[2022-09-14 13:50] LABS: Troponin I 148 ng/L (<or=60)
--- NOTE | 2022-09-14 14:00 | RT.EKG_ITS ---
APPROVED REPORT Exam: Resting ECG Reason for Exam: abnormal rhythm Patient Location: E HR:48 bpm ECG Measurements Heart Rate 48 AXIS SD 267 P -68 QRSd 115 QRS -27 QT 475 T 149 QTc 424 Conclusion Sinus or ectopic atrial bradycardia...P axis (-45,135), rate< 60 Supraventricular bigeminy...bigeminy string>4 w/ SV complexes Prolonged SD interval...SD >230, V-rate 30- 49 LVH with IVCD and secondary repol abnrm...multi-criteria, wQRSd, abnr ST-T narrow, irregular rhythm, left axis, LVH, sinus rhythm terry with long SD interval and second degree block v PAC with compensatory pause, less likely afib
[2022-09-14 15:18] LABS: Troponin I 136 ng/L (<or=60)
--- NOTE | 2022-09-14 18:13 | ED.PROG_ITS ---
Date of service: 09/14/22 Time of Service: 18:13 Medical Decision Making patient stable, spoke with butter melter [place]ias [place] [facility] [place] tele strip. He did not feel it was vtach and more likely was artifact due to it not lining up with the pleth below it. He did recommend having her observed and trend troponins and have an echo. Patient currently feels well, states her right leg heaviness she came in for has improved and has 5/5 strength in her leg without drift and normal sensation. Denies chest pain. Unclear cause for her elevated troponin, never had any chest pain or dyspnea. Will discuss with hospitalist about admission Discharge Plan Disposition Patient Disposition: Admit to [facility] Condition: Stable Discharge Details Clinical Impression: Elevated troponin Primary Care Provider: Bryant Crain ED Provider: Justin Gonzalez [place] Meds and New Rx's Prescriptions: No Action cholecalciferol (vitamin D3) 25 mcg (1,000 unit) capsule 25 mcg PO DAILY cyanocobalamin (vitamin B-12) 5,000 mcg capsule 1,000 mcg PO DAILY Eliquis 5 MG tablet 5 mg PO BID Qty: 180 3RF metformin 750 mg tablet extended release 24 hr 750 mg PO BID Rx Instructions: take with Metformin 500 mg tab cetirizine [Zyrtec] 10 mg tablet 10 mg PO DAILY Repatha Syringe 140 mg/mL syringe 140 mg subcut Q2W (DME) pen needle, diabetic Needle See Rx Instructions .ROUTE .MEDSUPPLY Qty: 1 Rx Instructions: As directed magnesium oxide 400 mg (241.3 mg magnesium) tablet 400 mg PO DAILY insulin lispro [Humalog KwikPen Insulin] 100 unit/mL insulin pen See Rx Instructions subcut DIRECTED Rx Instructions: per sliding scale subcut as directed; insulin glargine [Lantus U-100 Insulin] 100 unit/mL solution 30 unit SC QHS Patient Comments: says she takes 31U in am - 09/02/21 Ozempic 1 mg/dose (2 mg/1.5 mL) pen injector 2 mg subcut QWEEK candesartan 32 MG tablet 32 mg PO DAILY acetaminophen [Tylenol] 325 MG tablet 650 mg PO Q4H PRN PRN (Reason: fever,pain) 0RF gabapentin 300 mg capsule 600 mg PO BID Patient Comments: TAKE 2 CAPSULES TWICE A DAY gabapentin 100 mg Capsule 100 mg PO DAILY PRN
[2022-09-14] MEDS: Aspirin 325 MG TAB PO (19:13)
[2022-09-14 19:25] LABS: Source Nasal/Nares
[2022-09-14] MEDS: Atorvastatin 40 MG TAB 80 MG PO (19:40)
--- NOTE | 2022-09-14 19:41 | NUR.NOTE ---
Nursing Note: verified pt's allerigies- specifically listed as statins, pt thinks she gets stiffness in her hands, VO from Dr Gonzalez to go ahead and give the lipitor as ordered. Pt awaiting bed assignment, had sandwich and drink.
--- NOTE | 2022-09-14 19:48 | HPE_ITS ---
Date of service: 08/17/22 Time of Service: 19:48 Assessment and Plan Assessment and plan (1) TIA (transient ischemic attack): Start date: 09/14/22 Status: Acute Assessment and plan: This is a 72-year-old lady who had a previous CVA though MRI and CT are unrev ealing except for microvascular changes and presented with right leg heaviness with a history of both right and lower leg symptoms in the past from her ischemic cerebral disease. She completed recovery while in the ED but did initiate on aspirin already been on Eliquis for chronic atrial fibrillation. She will be observed overnight for recurrent symptoms with telemetry. There is a question whether she has a tachyarrhythmia which was thought to be artifact. Her troponins did slightly elevated will be trended overnight to assure no ongoing ischemia though she is clinically not having any cardiac event at this time. Her usual medication will be continued with the patient on an ARB in the morning and we will have permissive hypertension through the night. She is not chronically on any rate control medicines for her atrial fibrillation. She is a full code. (2) Elevated troponin: Start date: 09/14/22 Status: Acute Assessment and plan: Only slightly elevated troponins and trending downward with continued trending overnight with telemetry. She has rate controlled atrial fibrillation on no specific medical therapy. (3) Diabetes mellitus type 2, uncontrolled, with complications: Status: Chronic Assessment and plan: Patient will be on glucometer checks and moderate dose sliding scale of insulin therapy before meals and bedtime while hospitalized holding her outpatient medical therapy for now. She is chronically on gabapentin for neuropathy and this will be continued. Gentle IV hydration overnight with follow-up lab with patient's creatinine slightly elevated though the patient is taking oral hydration well. (4) Hypertension associated with diabetes: Status: Chronic Assessment and plan: Patient is chronically on candesartan 32 mg each morning and she will have permissive hypertension during this hospital stay. Presently her systolic blood pressure is below 160. She is allergic to atenolol and beta-blockers will be avoided especially with her controlled heart rate. History of Present Illness History of Present Illness Chief Complaint: Heaviness in right leg while swimming for exercise Narrative: This is a 72-year-old female patient who had a previous left CVA with right- sided lower extremity weakness mostly but also had left lower extremity weakness with which she reports has brainstem CVA. Her major stroke was on the left cerebral hemisphere and she had recovered with patient swimming for exercise the morning of admission and noticing that her right leg became very heavy and not moving. The ED history reported that she awakened with right leg heaviness. She reported to the ED for evaluation and was already improving as she was being evaluated. Imaging was unrevealing for acute CVA including CT and MRI. The patient symptoms completely resolved and she did have a loading dose of aspirin full dose and will receive a baby aspirin daily. She is already on Eliquis for chronic atrial fibrillation. She usually has a slow heart rate but elevated blood pressure and is allergic to multiple meds including statins though she did receive a one-time dose of atorvastatin 80 mg in the ED. She is on Repatha for hyperlipidemia. Statins make her hands cramp. She also is diabetic on treatment for diabetic neuropathy and chronically on insulin. In the ED she had what appeared to be V. tach or torsades but this was interpreted as artifact [place] [facility] [place]. The patient is not on any heart rate control medications but does take an ARB which she can tolerate for blood pressure control being intolerant of HARLEEN inhibitors. She is not requiring metoprolol with her heart rate already well controlled with atrial fibrillation. She does have an elevati on of her troponins most likely secondary to strain from her CVA and slight elevation of blood pressure which is not being treated aggressively with her TIA. Her systolic blood pressure was below 160 in the ED except for a brief elevation about 180. This would not be treated aggressively with permissive hypertension as stated with her TIA. She is a full code and will be admitted for observation overnight trending troponins with aspirin now initiated with Eliquis to be continued. Cardiac monitoring will be ongoing. She does not appear to have any tachycardia rhythm but does have occasional PVCs with her atrial fibrillation and narrow complex with a heart rate below 75 most of the time. Review of Systems Narrative: 13 point review of systems otherwise unrevealing or stable. PFSH All Active Problems (Updated 09/14/22 @ 23:45 by Fan Billings) TIA (transient ischemic attack) (Acute) Elevated troponin (Acute) Bradykinesia (Acute) Memory problem (Acute) Cervical radiculopathy (Acute) Sciatica (Acute) Neuropathic pain (Acute) Tremor (Acute) Abnormal movements (Acute) Actinic keratosis (Acute) History of CVA (cerebrovascular accident) (Acute) Pelvic pain in female (Acute) Squamous cell skin cancer (Acute) Granulomatous disorder of the skin and subcutaneous tissue, unspecified (Acute) Mixed stress and urge urinary incontinence (Acute) History of kidney stones (Acute) Recurrent UTI (urinary tract infection) (Acute) Left acute arterial ischemic stroke, MCA (middle cerebral artery) (Acute) Diabetes mellitus type 2, uncontrolled, with complications (Chronic) Hyperlipidemia associated with type 2 diabetes mellitus (Acute) Hypertension associated with diabetes (Chronic) ESE (acute kidney injury) (Acute) Allergic to IV contrast (Acute) Pain in right lower leg (Acute) Medical History Acne rosacea Adequate 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 on anticoagulant therapy Adjustment disorder with mixed anxiety and depressed mood Allergic rhinitis Asthma Atypical chest pain Carcinoma of skin CVA (cerebral vascular accident) Diabetic peripheral neuropathy Diarrhea H/O urinary frequency Hypercalcemia Hyperlipidemia Hyperparathyroidism Hypertension Intermittent asthma Microalbuminuria Myalgia Overflow incontinence Paroxysmal atrial fibrillation Peripheral neuropathy Reactive depression Type 2 diabetes mellitus Urge urinary incontinence Urinary incontinence Weakness of foot Surgical History Abdominal hysterectomy bladder repair,open Hx of colonoscopy Family History Other Diabetes Hyperlipidemia Hypertension Social History Smoking/Tobacco Use Status: Never Smoking risk assessment performed?: Yes Alcohol Intake: never Drug use: Never Substance use type: does not use Household members: spouse Housing: house Number of Children: 3 number of grandchildren: 7 Pets and animals: No Current gender identity: female What is your relationship status?: Panel score (0-1 are the most socially isolated patients): 1 What type of physical activity do you participate in: swimming Seatbelt use: always Do you feel safe at home: Yes Do you feel safe in your relationship?: Yes Meds Allergies and Home Medications Allergies Allergy/AdvReac Type Severity Reaction Status Date / Time Iodinated Contrast Media Allergy Severe Anaphylaxsis Verified 09/14/22 10:54 [Iodinated Contrast- Oral ( and IV Dye] TOLERATED WITH PREMEDS 05/05/17) atenolol Allergy Mild Verified 09/14/22 10:54 ezetimibe [From Zetia] Allergy Mild Verified 09/14/22 10:54 hydroxychloroquine Allergy Mild Verified 09/14/22 10:54 [From Plaquenil] lisinopril Allergy Mild Verified 09/14/22 10:54 losartan [From Cozaar] Allergy Mild Verified 09/14/22 10:54 cephalexin Allergy Rash Verified 09/14/22 10:54 ciprofloxacin Allergy Verified 09/14/22 10:54 Eijffav-[id number]-ZqX Reductase Allergy Verified 09/14/22 10:54 Inhibitor [Vxhamre-Drg-Dia Reductase Inhibitor] oxycodone HCl [From Percocet] AdvReac CRAZY Verified 09/14/22 10:54 Home Medications Medication Instructions Recorded Confirmed Type candesartan 32 mg tablet 32 mg PO DAILY 04/28/17 09/14/22 History acetaminophen 325 mg tablet 650 mg PO Q4H PRN PRN fever,pain 04/30/17 09/14/22 Rx (Tylenol) apixaban 5 mg tablet (Eliquis) 5 mg PO BID #180 tabs 09/01/17 09/14/22 Rx cetirizine 10 mg tablet (Zyrtec) 10 mg PO DAILY 10/25/19 09/14/22 History metformin 750 mg tablet,extended 750 mg PO BID 10/25/19 09/14/22 History release 24 hr evolocumab 140 mg/mL subcutaneous 140 mg subcut Q2W 12/12/20 09/14/22 History syringe (Repatha Syringe) magnesium oxide 400 mg (241.3 mg 400 mg PO DAILY 12/12/20 09/14/22 History magnesium) tablet pen needle, diabetic ##1 12/12/20 09/14/22 History insulin lispro 100 unit/mL See Rx Instructions subcut 08/04/21 09/14/22 History subcutaneous pen (Humalog KwikPen DIRECTED (U-100) Insulin) cholecalciferol (vitamin D3) 25 25 mcg PO DAILY 09/02/21 09/14/22 History mcg (1,000 unit) capsule cyanocobalamin (vitamin B-12) 1,000 mcg PO DAILY 02/03/22 09/14/22 History 5,000 mcg capsule insulin glargine 100 unit/mL 30 unit subcut QHS 02/03/22 09/14/22 History subcutaneous solution (Lantus U-100 Insulin) semaglutide 1 mg/dose (2 mg/1.5 2 mg subcut QWEEK 02/03/22 09/14/22 History mL) subcutaneous pen injector (Ozempic) gabapentin 100 mg capsule 100 mg PO DAILY PRN 09/14/22 09/14/22 History gabapentin 300 mg capsule 600 mg PO BID 09/14/22 09/14/22 History Exam Narrative Exam Narrative: General: Patient appears younger than stated age, alert and oriented x3 and in no acute distress. HEENT: Normocephalic, eyes with pupils equal reactive light symmetrically, extraocular movement tact and sclera anicteric. Oropharynx with moist mucosa and fair dentition. Neck: Supple without JVD. No auscultated bruits. Back: Stooped posture without CVA tenderness. Lungs: Fair aeration and clear to auscultation and percussion. Breast: Exam deferred. Heart: Irregular rhythm with normal rate, 3/6 systolic murmur left sternal border. No gallops. Abdomen: Obese contour, soft and nontender to palpation with no palpable hepatosplenomegaly. Bowel sounds positive all quadrants. Genitalia/rectal: Exam deferred. Skin: Normal color, warm and dry. Actinic changes over sun exposed areas. Extremities: Without clubbing, cyanosis or grossly pitting edema. Neuro: Cranial nerves II through XII grossly intact, no focalizing motor deficits the patient did complain of weakness in right lower extremity this is completely resolved to baseline which is only slightly decreased strength on the right leg compared to left but no difficulty ambulating. No tremor. Babinski negative. DTRs physiologic and symmetrical. Psych: Normal affect and mood. No abnormal thought processes. Remote and recent memory intact. Results Imaging Imaging Studies: EXAM: ? MR BRAIN WO CLINICAL HISTORY: ? right lower extremity heaviness, hx of cva.? TECHNIQUE:? Multiplanar multisequence MRI of the brain was performed. CONTRAST MATERIAL:? Noncontrast COMPARISON:? MR MR BRAIN WO from 08/13/2021 FINDINGS: VENTRICLES AND EXTRA AXIAL SPACES: Normal in size and morphology for the patient's age. HEMORRHAGE: None. CEREBRAL PARENCHYMA: Stable scattered high signal foci in the white matter both cerebral hemispheres consistent with chronic microvascular changes.? No focus of restricted diffusion to suggest acute infarct. No space-occupying lesion identified. MIDLINE SHIFT: None. BRAINSTEM/CEREBELLUM: Normal. CALVARIUM: Normal. VISUALIZED PARANASAL SINUSES/MASTOIDS: Clear. OTHER FINDINGS: None. IMPRESSION: Chronic white matter changes.? No acute abnormality. EXAM: ? CT HEAD WO CLINICAL HISTORY: ? right leg heaviness hx of cva. ? TECHNIQUE:? Imaging Protocol: Axial computed tomography images with coronal and sagittal reformatted images were created and reviewed COMPARISON:? CT HEAD WITHOUT CONTRAST from 05/01/2017 CT CTA BRAIN AND NECK from 05/05/2017 MR MR BRAIN WO from 08/13/2021 FINDINGS: Ventricles and Extra axial spaces: Normal in size and morphology for the patient's age. Hemorrhage: None. Cerebral parenchyma:? Mild atrophy.? White matter changes consistent with small vessel disease. Midline shift: None. Brainstem/Cerebellum: Normal. Calvarium: Normal. Visualized Paranasal sinuses/Mastoids: Clear. IMPRESSION: No acute abnormality. Labs 09/14/22 10:08 09/14/22 10:08 Labs: Laboratory Results - last 24 hr 09/14/22 09/14/22 09/14/22 10:08 10:08 10:08 WBC 8.54 RBC 4.69 Hgb 14.2 Hct 42.6 MCV 91 MCH 30.3 MCHC 33.3 RDW 13.5 Plt Count 331 MPV 10.1 Immature Gran % 0.2 Neutrophils % 44.9 Lymphocytes % 43.0 Monocytes % 8.2 Eosinophils % 2.9 Basophils % 0.8 Nucleated RBC % 0.0 Absolute Neutrophils 3.83 Absolute Lymphocytes 3.67 H Absolute Monocytes 0.70 Absolute Eosinophils 0.25 Absolute Basophils 0.07 PT 11.0 INR 1.1 APTT 27.1 Sodium 142 Potassium 4.3 Chloride 108 H Carbon Dioxide 26.9 Anion Gap 7.1 BUN 19 H Creatinine 1.1 H Est GFR (CKD-EPI 2020) 54.06 Glucose 133 H Calcium 10.6 H Magnesium Total Bilirubin 0.5 AST 21 ALT 27 Alkaline Phosphatase 53 Troponin I Total Protein 7.4 Albumin 4.0 COVID-19 Source 09/14/22 09/14/22 09/14/22 10:08 10:08 14:52 WBC RBC Hgb Hct MCV MCH MCHC RDW Plt Count MPV Immature Gran % Neutrophils % Lymphocytes % Monocytes % Eosinophils % Basophils % Nucleated RBC % Absolute Neutrophils Absolute Lymphocytes Absolute Monocytes Absolute Eosinophils Absolute Basophils PT INR APTT Sodium Potassium Chloride Carbon Dioxide Anion Gap BUN Creatinine Est GFR (CKD-EPI 2020) Glucose Calcium Magnesium 1.8 Total Bilirubin AST ALT Alkaline Phosphatase Troponin I 148 H* 136 H* Total Protein Albumin COVID-19 Source 09/14/22 19:19 WBC RBC Hgb Hct MCV MCH MCHC RDW Plt Count MPV Immature Gran % Neutrophils % Lymphocytes % Monocytes % Eosinophils % Basophils % Nucleated RBC % Absolute Neutrophils Absolute Lymphocytes Absolute Monocytes Absolute Eosinophils Absolute Basophils PT INR APTT Sodium Potassium Chloride Carbon Dioxide Anion Gap BUN Creatinine Est GFR (CKD-EPI 2020) Glucose Calcium Magnesium Total Bilirubin AST ALT Alkaline Phosphatase Troponin I Total Protein Albumin COVID-19 Source Nasal/Nares Last Vital Signs Temp 35.8 C L 09/14/22 10:16 Pulse 67 09/14/22 14:09 Resp 18 09/14/22 14:10 BP 165/73 H 09/14/22 14:09 Pulse Ox 97 09/14/22 10:16 Time Spent Time spent with Patient: >75 minutes Time was spent: preparing to see the patient(eg.review tests), obtaining and/or reviewing separately otained hiistory, ordering medications,tests, procedures, referring, communicating with other health wound care technician and counseling the patient
[2022-09-14 20:16] LABS: COVID-19 PCR Negative (Negative)
[2022-09-14 21:19] LABS: TSH (W/Ref FT4) 1.39 uIU/mL (0.36-3.74)
[2022-09-14 21:20] LABS: Troponin I 161 ng/L (<or=60)
[2022-09-14] MEDS: Gabapentin 300 MG CAP 600 MG PO (22:38)
[2022-09-15 00:01] LABS: Troponin I 151 ng/L (<or=60)
[2022-09-15 00:19] VITALS: PULSE 71
[2022-09-15] MEDS: Apixaban 5 MG TAB PO ×2 (00:38→09:22)
[2022-09-15] MEDS: Normal Saline 1,000 ML 100 ML IV ×2 (00:47→09:26)
[2022-09-15 03:49] VITALS: BP 167/77; PULSE 67; RESP 18; TEMP 36.7; O2SAT 96
[2022-09-15 06:00] LABS: HCT 36.9 % (36.0-46.0); HGB 12.5 g/dL (11.2-15.7); MCH 30.3 pg (27.0-33.0); MCHC 33.9 % (32.0-36.0); MCV 89 fL (80-95); MPV 10.3 fL (8.0-11.0); Platelet Count 293 10^3/uL (130-400); RBC 4.13 10^6/uL (3.93-5.22); RDW 13.3 % (11.7-14.6); RDW-SD 44.1 fL; WBC 7.53 10^3/uL (4.4-10.8)
[2022-09-15 06:22] LABS: ALT 22 U/L (14-59); AST 23 U/L (15-37); Alkaline Phosphatase 44 U/L (46-116); Anion Gap 8.3 mmol/L (3-11); BUN 18 mg/dL (7-18); Bilirubin, Total 0.5 mg/dL (0.2-1.0); CO2 22.7 mmol/L (21.0-32.0); Calcium 9.4 mg/dL (8.5-10.1); Chloride 112 mmol/L (98-107); Estimated GFR 60.61 (mL/min/1.73m2); Glucose 100 mg/dL (74-106); Magnesium 1.7 mg/dL (1.8-2.4); Potassium 4.2 mmol/L (3.5-5.1); Sodium 143 mmol/L (136-145); Total Protein 5.8 g/dL (6.4-8.2)
[2022-09-15 06:27] LABS: Troponin I 170 ng/L (<or=60)
[2022-09-15 07:02] VITALS: PULSE 62
[2022-09-15 07:22] VITALS: BP 149/79; PULSE 63; RESP 16; TEMP 36.5; O2SAT 93
[2022-09-15] MEDS: Gabapentin 300 MG CAP 600 MG PO (09:22)
[2022-09-15] MEDS: Cyanocobalamin 500 MCG TAB 1000 MCG PO (09:22)
[2022-09-15] MEDS: Cholecalciferol (Vitamin D3) 1,000 UNIT TAB 1000 UNITS PO (09:22)
[2022-09-15] MEDS: Magnesium Oxide 400 MG TAB PO (09:22)
[2022-09-15] MEDS: Aspirin 81 MG CHEW PO (09:22)
[2022-09-15] MEDS: Cetirizine 10 MG TAB PO (09:23)
--- NOTE | 2022-09-15 10:47 | CHAPLAIN ---
Joanna was sitting up watching tv when I visited. She said she is hoping to go home today. She has dealt with similar cardiac issues before and did not seem to be alarmed her hospital stay. She live in [facility]. She and her attend the [employer]. Joanna said she attended [employer] and has learned what [employer] teachings are important to her, and what teachings she doesn't necessarily agree with. She was very pleasant and easily engaged in a conversation.
[2022-09-15 11:23] VITALS: BP 152/82; PULSE 65; RESP 16; TEMP 36.3; O2SAT 99
[2022-09-15 12:10] LABS: Troponin I 115 ng/L (<or=60)
[2022-09-15 13:32] LABS: Lab Add On Test DONE
[2022-09-15 13:45] LABS: Hemoglobin A1C 7.5 % (<5.7)
[2022-09-15 15:18] VITALS: BP 164/75; PULSE 58; RESP 16; TEMP 36.6; O2SAT 96
--- NOTE | 2022-09-15 15:29 | NCONE_ITS ---
Date of service: 09/15/22 Time of Service: 15:29 Assessment and Plan Assessment and plan (1) Memory problem: Status: Acute (2) CVA (cerebral vascular accident): Assessment and plan: Ms. Hart presents with acute on chronic right leg weakness with known history of prior strokes. She had no acute stroke at this visit. Also, symptoms of too long duration to be TIA. However, I would still recommend that she re-start aspirin 81mg daily in addition to apixaban for secondary stroke prevention - she is a diabetic with atherosclerosis along with HTN/HLD. Symptoms at this time likely secondary to recrudesence from fatigue? Med changes? Not clear. She will continue gabapentin 600mg BID for her post-stroke pain. She should follow-up in the neurology clinic for further evaluation/memory testing in 4-6 weeks. History of Present Illness History of Present Illness Chief Complaint: R leg weakness/heaviness Narrative: Handedness: right. Ms. Hart is a 72 year-old woman with hypertension, hyperlipidemia, diabetes with peripheral neuropathy, strokes, paroxysmal atrial fibrillation, tremor, memory loss, hyperparathyroidism, depression, and asthma. She is well known to me as I see her in clinic, last seen on 08/04/22. She actually was scheduled to f/up with me today. She was admitted yesterday after presenting with R leg mild weakness/heaviness. She woke up with the symptoms. Went swimming around 930 during which the weakness worsened such that she needed help getting out of the pool. She still feels her right leg is heavier than usual, but notes improvement since yesterday. She is on apixaban 5mg BID. She actually stopped her aspirin since I last saw her due to concerns of also being on apixaban. At last visit, we had switched her gabapentin to pregabalin for better pain control post-prior stroke. She took pregabalin for 1 week and notes that it also caused her right leg to be heavy. Switched back to gabapentin about 1.5 weeks ago. She underwent the work-up as below which showed no acute stroke on MRI. While in the ER she had some abnormalities on EKG concerning for vtach/torsades. Troponins noted to be elevated at that time and she was admitted for further evaluation. She otherwise feels she is more forgetful, but at bedside hasn't noticed any cognitive changes. Work-up: -CT (09/14/22): No acute findings. I reviewed these images personally and this is my personal interpretation. -MRI brain w/o (09/14/22): No acute findings. Moderate chronic vascular changes. Atrophy. I reviewed these images personally and this is my personal interpretation. Review of Systems All systems reviewed & are unremarkable except as noted in HPI and below PFSH All Active Problems (Updated 09/15/22 @ 16:45 by Jesse Robles MD) Sinus pause (Acute) TIA (transient ischemic attack) (Acute) Elevated troponin (Acute) Bradykinesia (Acute) Memory problem (Acute) Cervical radiculopathy (Acute) Sciatica (Acute) Neuropathic pain (Acute) Tremor (Acute) Abnormal movements (Acute) Actinic keratosis (Acute) History of CVA (cerebrovascular accident) (Acute) Pelvic pain in female (Acute) Squamous cell skin cancer (Acute) Granulomatous disorder of the skin and subcutaneous tissue, unspecified (Acute) Mixed stress and urge urinary incontinence (Acute) History of kidney stones (Acute) Recurrent UTI (urinary tract infection) (Acute) Left acute arterial ischemic stroke, MCA (middle cerebral artery) (Acute) Diabetes mellitus type 2, uncontrolled, with complications (Chronic) Hyperlipidemia associated with type 2 diabetes mellitus (Acute) Hypertension associated with diabetes (Chronic) ESE (acute kidney injury) (Acute) Allergic to IV contrast (Acute) Pain in right lower leg (Acute) Medical History Acne rosacea Adequate 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 on anticoagulant therapy Adjustment disorder with mixed anxiety and depressed mood Allergic rhinitis Asthma Atypical chest pain Carcinoma of skin CVA (cerebral vascular accident) Diabetic peripheral neuropathy Diarrhea H/O urinary frequency Hypercalcemia Hyperlipidemia Hyperparathyroidism Hypertension Intermittent asthma Microalbuminuria Myalgia Overflow incontinence Paroxysmal atrial fibrillation Peripheral neuropathy Reactive depression Type 2 diabetes mellitus Urge urinary incontinence Urinary incontinence Weakness of foot Surgical History Abdominal hysterectomy bladder repair,open Hx of colonoscopy Family History Other Diabetes Hyperlipidemia Hypertension Social History Smoking/Tobacco Use Status: Never Smoking risk assessment performed?: Yes Alcohol Intake: never Drug use: Never Substance use type: does not use Household members: spouse Housing: house Number of Children: 3 number of grandchildren: 7 Pets and animals: No Current gender identity: female What is your relationship status?: Panel score (0-1 are the most socially isolated patients): 1 What type of physical activity do you participate in: swimming Seatbelt use: always Do you feel safe at home: Yes Do you feel safe in your relationship?: Yes Visit Medication and Allergies Active Medications Generic Name Dose Route Start Last Admin Trade Name Freq PRN Reason Stop Dose Admin Acetaminophen 650 mg 09/14/22 19:28 Acetaminophen 325 Mg Tab PO Q4H PRN PRN Al Hydrox/Mg Hydrox/Simethicone 30 ml 09/14/22 19:28 Mylanta Suspension 30 Ml Cup PO Q2H PRN PRN Apixaban 5 mg 09/15/22 00:00 09/15/22 09:22 Apixaban 5 Mg Tab PO 5 mg BID CHEKO Administration Aspirin 81 mg 09/15/22 08:30 09/15/22 09:22 Aspirin 81 Mg Chew PO 81 mg DAILY CHEKO Administration Cetirizine HCl 10 mg 09/15/22 08:30 09/15/22 09:23 Cetirizine 10 Mg Tab PO 10 mg DAILY CHEKO Administration Cholecalciferol 1,000 units 09/15/22 08:30 09/15/22 09:22 Cholecalciferol (Vitamin D3) 1,000 Unit Tab PO 1,000 units DAILY CHEKO Administration Cyanocobalamin 1,000 mcg 09/15/22 08:30 09/15/22 09:22 Cyanocobalamin 500 Mcg Tab PO 1,000 mcg DAILY CHEKO Administration Dextrose 0 gm 09/14/22 19:41 Glucose Oral Gel 15 Gm/37.5 Gm Tube PO DIRECTED PRN Dextrose/Water 0 gm 09/14/22 19:41 Dextrose 50%-Water 25 Gm/50 Ml Syr IVP DIRECTED PRN Dimethicone/Zinc Oxide 0 gm 09/14/22 19:28 Nicole Protect Cream 142 Gm Tube TP PRN PRN Docusate Sodium 100 mg 09/14/22 19:28 Docusate Sodium 100 Mg Cap PO TID PRN PRN Gabapentin 100 mg 09/14/22 19:42 Gabapentin 100 Mg Cap PO DAILY PRN PRN Gabapentin 600 mg 09/14/22 20:00 09/15/22 09:22 Gabapentin 300 Mg Cap PO 600 mg BID CHEKO Administration Sodium Chloride 1,000 mls @ 100 mls/hr 09/14/22 19:30 09/15/22 09:26 Saline 1000ml Bag IV 100 mls/hr INFUSION CHEKO Administration Sodium Chloride 500 mls @ 0 mls/hr 09/15/22 03:27 Saline 500ml Bag IV PRN PRN As Directed Insulin Aspart 0 - 18 units 09/15/22 12:00 09/15/22 12:45 Insulin Aspart 300 Units/3 Ml Pen SC Not Given 0800,1200,1700,2200 [facility] Protocol Magnesium Hydroxide 30 ml 09/14/22 19:28 Milk Of Magnesia 30 Ml Cup PO DAILY PRN PRN Magnesium Oxide 400 mg 09/15/22 08:30 09/15/22 09:22 Magnesium Oxide 400 Mg Tab PO 400 mg DAILY CHEKO Administration Polyethylene Glycol 17 gm 09/14/22 19:28 Polyethylene Glycol 3350 17 Gm Packet PO DAILY PRN PRN Constipation Sodium Chloride 0 ml 09/15/22 03:27 Normal Saline Flush 10 Ml Syr IVP PRN PRN Allergies Iodinated Contrast Media [Iodinated Contrast- Oral and IV Dye] Allergy (Severe, Verified 09/14/22 10:54) Anaphylaxsis ( TOLERATED WITH PREMEDS 05/05/17) atenolol Allergy (Mild, Verified 09/14/22 10:54) ezetimibe [From Zetia] Allergy (Mild, Verified 09/14/22 10:54) hydroxychloroquine [From Plaquenil] Allergy (Mild, Verified 09/14/22 10:54) lisinopril Allergy (Mild, Verified 09/14/22 10:54) losartan [From Cozaar] Allergy (Mild, Verified 09/14/22 10:54) cephalexin Allergy (Verified 09/14/22 10:54) Rash ciprofloxacin Allergy (Verified 09/14/22 10:54) Bvnepmd-FFI-IvH Reductase Inhibitor [Isvgkwa-Xpv-Dfj Reductase Inhibitor] Allergy (Verified 09/14/22 10:54) oxycodone HCl [From Percocet] Adverse Reaction (Verified 09/14/22 10:54) CRAZY Exam Narrative Exam Narrative: Physical Exam: Constitutional: Patient of apparent stated age, well nourished, well developed, no acute distress;?mild hypomimia - less so than in the past Neuro: MS/Language/Speech: Alert, oriented, clear language (fluency and comprehension), no dysarthria;? CN: PERRL, EOMI, visual sloan full, trigeminal sensation intact, no facial asymmetry, hearing intact , palate elevates symmetrically, tongue protrudes midline, SCM and trap strength intact Motor: Normal bulk and tone.?Fine motor movements reduced bilaterally, L>R, subtle.? No pronator drift.??4++/5 proximal RUE and right hip flexor. 5/5 all else. No obvious postural tremor of the UE. Subtle subtle L=R UE action tremor. Sensation: reduced LT in RLE; intact all else Reflexes: hyporeflexic throughout; toes downgoing bilaterally Coordination: Finger to nose performed without dysmetria Gait:?not seen today Results Last Vital Signs Temp 97.9 F 09/15/22 15:18 Pulse 58 L 09/15/22 15:18 Resp 16 09/15/22 15:18 BP 164/75 H 09/15/22 15:18 Pulse Ox 96 09/15/22 15:18 Labs 09/15/22 05:32 09/15/22 05:32 Labs: Laboratory Results - last 24 hr 09/14/22 09/14/22 09/14/22 19:19 20:40 23:35 WBC RBC Hgb Hct MCV MCH MCHC RDW Plt Count MPV Sodium Potassium Chloride Carbon Dioxide Anion Gap BUN Creatinine Est GFR (CKD-EPI 2020) Glucose Hemoglobin A1c Calcium Magnesium Total Bilirubin AST ALT Alkaline Phosphatase Troponin I 161 H* 151 H* Total Protein Albumin TSH 1.39 COVID-19 Source Nasal/Nares SARS-CoV-2 (PCR) Negative Add-On Test Request 09/15/22 09/15/22 09/15/22 05:32 05:32 05:32 WBC 7.53 RBC 4.13 Hgb 12.5 Hct 36.9 MCV 89 MCH 30.3 MCHC 33.9 RDW 13.3 Plt Count 293 MPV 10.3 Sodium 143 Potassium 4.2 Chloride 112 H Carbon Dioxide 22.7 Anion Gap 8.3 BUN 18 Creatinine 1.0 Est GFR (CKD-EPI 2020) 60.61 Glucose 100 Hemoglobin A1c Calcium 9.4 Magnesium 1.7 L Total Bilirubin 0.5 AST 23 ALT 22 Alkaline Phosphatase 44 L Troponin I 170 H* Total Protein 5.8 L Albumin 3.0 L TSH COVID-19 Source SARS-CoV-2 (PCR) Add-On Test Request 09/15/22 09/15/22 09/15/22 05:32 05:32 11:40 WBC RBC Hgb Hct MCV MCH MCHC RDW Plt Count MPV Sodium Potassium Chloride Carbon Dioxide Anion Gap BUN Creatinine Est GFR (CKD-EPI 2020) Glucose Hemoglobin A1c 7.5 H Calcium Magnesium Total Bilirubin AST ALT Alkaline Phosphatase Troponin I 115 H* Total Protein Albumin TSH COVID-19 Source SARS-CoV-2 (PCR) Add-On Test Request DONE
--- NOTE | 2022-09-15 16:06 | W.PM.DS.N ---
Date of service: 09/15/22 Time of Service: 16:08 DS: Diagnosis Discharge Diagnosis (1) TIA (transient ischemic attack): Status: Acute Asessment and Plan: Symptom of R leg heaviness; not likely a TIA. Neurology consulted. CT head with no acute findings. MRI brain w/o acute findings. Moderate chronic vascular changes and atrophy noted. Cont ASA and Plavix. Neurology f/u (2) Elevated troponin: Status: Acute Asessment and Plan: Initial troponin 148; peaked at 170 then decreased to 115 Pt did not have any c/o CP. No palpitations. (3) Diabetes mellitus type 2, uncontrolled, with complications: Status: Chronic Asessment and Plan: A1c 7.5. Cont home diabetic medication regimen and diabetic diet. (4) Hypertension associated with diabetes: Status: Chronic Asessment and Plan: Cont Candesartan SBP predominantly in the 140-150's this admission with occasional more elevated readings. (5) Sinus pause: Status: Acute Asessment and Plan: Telemetry monitoring showed intermittent sinus pauses up to 3 seconds. Asymptomatic. Also noted were periods of second-degree AV block; Mobitz type 1. Cardiolgoy referral. Discharge Plan Disposition Patient Disposition: Home Condition: Good Discharge Details Reason For Visit: TIA, Elevated Troponin Admit Date/Time: 09/14/22 19:28 Admit Provider: Fan Billings Attending Provider: Fan Billings Primary Care Provider: Bryant Crain Hospital Course Hospital Course: This is a 72-year-old female patient who had a previous left CVA with right-sided lower extremity weakness mostly but also had left lower extremity weakness with which she reports has brainstem CVA.? Her major stroke was on the left cerebral hemisphere and she had recovered with patient swimming for exercise the morning of admission and noticing that her right leg became very heavy and not moving. The ED history reported that she awakened with right leg heaviness. She reported to the ED for evaluation and was already improving as she was being evaluated.? Imaging was unrevealing for acute CVA including CT and MRI.? The patient symptoms completely resolved and she did have a loading dose of aspirin full dose and will receive a baby aspirin daily.? She is already on Eliquis for chronic atrial fibrillation.? She usually has a slow heart rate but elevated blood pressure and is allergic to multiple meds including statins though she did receive a one-time dose of atorvastatin 80 mg in the ED.? She is on Repatha for hyperlipidemia.? Statins make her hands cramp.? She also is diabetic on treatment for diabetic neuropathy and chronically on insulin.? In the ED she had what appeared to be V. tach or torsades but this was interpreted as artifact by [facility].? The patient is not on any heart rate control medications but does take an ARB which she can tolerate for blood pressure control being intolerant of HARLEEN inhibitors.? She is not requiring metoprolol with her heart rate already well controlled with atrial fibrillation.? She does have an elevation of her troponins most likely secondary to strain from her CVA and slight elevation of blood pressure which is not being treated aggressively with her TIA.? Her systolic blood pressure was below 160 in the ED except for a brief elevation about 180.? This would not be treated aggressively with permissive hypertension as stated with her TIA.? She is a full code and will be admitted for observation overnight trending troponins with aspirin now initiated with Eliquis to be continued.? Cardiac monitoring will be ongoing.? She does not appear to have any tachycardia rhythm but does have occasional PVCs with her atrial fibrillation and narrow complex with a heart rate below 75 most of the time. See Diagnosis Follow up with Dr Paredes per their recommendation Home Meds and New Rx's Prescriptions: New aspirin [Children's Aspirin] 81 mg Tablet,Chewable 81 mg PO DAILY Qty: 0 0RF Continued cholecalciferol (vitamin D3) 25 mcg (1,000 unit) capsule 25 mcg PO DAILY cyanocobalamin (vitamin B-12) 5,000 mcg capsule 1,000 mcg PO DAILY Eliquis 5 MG tablet 5 mg PO BID Qty: 180 3RF metformin 750 mg tablet extended release 24 hr 750 mg PO BID Rx Instructions: take with Metformin 500 mg tab cetirizine [Zyrtec] 10 mg tablet 10 mg PO DAILY Repatha Syringe 140 mg/mL syringe 140 mg subcut Q2W magnesium oxide 400 mg (241.3 mg magnesium) tablet 400 mg PO DAILY insulin lispro [Humalog KwikPen Insulin] 100 unit/mL insulin pen See Rx Instructions subcut DIRECTED Rx Instructions: per sliding scale subcut as directed; insulin glargine [Lantus U-100 Insulin] 100 unit/mL solution 30 unit SC QHS Patient Comments: says she takes 31U in am - 09/02/21 candesartan 32 MG tablet 32 mg PO DAILY acetaminophen [Tylenol] 325 MG tablet 650 mg PO Q4H PRN PRN (Reason: fever,pain) 0RF gabapentin 300 mg capsule 600 mg PO BID Patient Comments: TAKE 2 CAPSULES TWICE A DAY gabapentin 100 mg Capsule 100 mg PO DAILY PRN Discontinued Ozempic 1 mg/dose (2 mg/1.5 mL) pen injector 2 mg subcut QWEEK No Action (DME) pen needle, diabetic Needle See Rx Instructions .ROUTE .MEDSUPPLY Qty: 1 Rx Instructions: As directed Discharge Instructions Instructions: Transient Ischemic Attack (DC), Heart Healthy Diet (DC) Stand Alone Forms: Nursing Discharge Form Referrals: Katia Bhakta MD [ [facility] STAFF PHYSICIAN] - (Please call tomorrow (09/16/22) to make a follow up appointment. Sinus pauses. ) Bryant Crain MD [Primary Care Provider] - (Please call tomorrow (09/16/22) to make a follow up appointment for 1-2 weeks.) Zandra Paredes MD [ [facility] STAFF PHYSICIAN] - (Please call tomorrow (09/16/22) to make a follow up appointment. ) Activity:: Activity as Tolerated Equipment/Supplies:: No Equipment Needed Diet:: Diabetic, heart healthy Discharge Orders Discharge Orders: Discharge Order (Routine); Ordered 09/15/22 Ordered By: Jesse Robles DS: Summary Time Spent with Patient providing and/or coordinating discharge services: Greater than 30 minutes Status at Discharge Functional status at discharge: independent ambulation Overall status at discharge: patient is back to baseline Mental Status: mental status grossly normal Speech and Movement: speech and movement normal Mood: congruent mood Affect: normal affect Exam Narrative Exam Narrative: General: alert, awake, cooperative, resting comfortably, no acute distress HEENT: normocephalic, atraumatic; PERRL, sclera clear. Chest: normal to inspection Respiratory: normal respiratory effort, speaking in full sentences, clear to auscultation, no wheezing, rales or rhonchi Cardiac: regular rate, regular rhythm, S1S2 intact, no murmurs GI: abdomen soft, non-tender, non-distended Skin: no lesions, rashes or trauma appreciated Neuro: AAOx3, normal speech, moving all extremities; 5 out of 5 strength right upper right lower and left lower extremity, 4+ out of 5 strength left upper extremity; cranial nerves intact, normal speech Extremities: No edema, calf tenderness Psych: Appropriate mood and affect Psych Mental Status: mental status grossly normal Speech and Movement: speech and movement normal Mood: congruent mood Affect: normal affect DS: Data Vitals/I&O Vitals and I&O: Vital Signs Temperature 36.6 C 09/15/22 15:18 Temperature Source Tympanic 09/15/22 15:18 Pulse 58 L 09/15/22 15:18 Pulse Rhythm Irregular 09/15/22 14:30 Pulse 83 09/14/22 22:40 Respiratory Rate 16 09/15/22 15:18 Respiratory Effort Normal 09/15/22 14:30 Respiratory Depth Normal 09/15/22 14:30 Respiratory Pattern Normal 09/15/22 14:30 Blood Pressure 164/75 H 09/15/22 15:18 Blood Pressure Mean 102 09/14/22 22:31 Blood Pressure Position Sitting 09/14/22 10:16 Pulse Oximetry 96 09/15/22 15:18 Oxygen Delivery Method Room Air 09/15/22 15:18 Oxygen Flow Rate 0 09/15/22 15:18 Pain Level 0 09/15/22 07:22 Comment RN informed of BP 09/15/22 15:18 Intake & Output 09/14/22 09/15/22 09/15/22 23:59 11:59 23:59 Intake Total 865 / 865 Output Total 1100 / 1700 600 / 1700 Balance -235 / -835 -600 / -835 Weight 72 kg Intake: IV 865 / 865 Output: Urine 1100 / 1700 600 / 1700 Other: Urine Color Yellow Yellow Urine Appearance Clear Clear Urine Odor None Comment pT voided - missed hat Voiding Methods Toilet Toilet Data Completed and Pending Labs on day of discharge: Labs from last 24 hours 09/15/22 09/15/22 09/15/22 11:40 05:32 05:32 WBC RBC Hgb Hct MCV MCH MCHC RDW Plt Count MPV Sodium Potassium Chloride Carbon Dioxide Anion Gap BUN Creatinine Est GFR (CKD-EPI 2020) Glucose Hemoglobin A1c 7.5 H Calcium Magnesium Total Bilirubin AST ALT Alkaline Phosphatase Troponin I 115 H* Total Protein Albumin TSH COVID-19 Source SARS-CoV-2 (PCR) Add-On Test Request DONE 09/15/22 09/15/22 09/15/22 05:32 05:32 05:32 WBC 7.53 RBC 4.13 Hgb 12.5 Hct 36.9 MCV 89 MCH 30.3 MCHC 33.9 RDW 13.3 Plt Count 293 MPV 10.3 Sodium 143 Potassium 4.2 Chloride 112 H Carbon Dioxide 22.7 Anion Gap 8.3 BUN 18 Creatinine 1.0 Est GFR (CKD-EPI 2020) 60.61 Glucose 100 Hemoglobin A1c Calcium 9.4 Magnesium 1.7 L Total Bilirubin 0.5 AST 23 ALT 22 Alkaline Phosphatase 44 L Troponin I 170 H* Total Protein 5.8 L Albumin 3.0 L TSH COVID-19 Source SARS-CoV-2 (PCR) Add-On Test Request 09/14/22 09/14/22 09/14/22 23:35 20:40 19:19 WBC RBC Hgb Hct MCV MCH MCHC RDW Plt Count MPV Sodium Potassium Chloride Carbon Dioxide Anion Gap BUN Creatinine Est GFR (CKD-EPI 2020) Glucose Hemoglobin A1c Calcium Magnesium Total Bilirubin AST ALT Alkaline Phosphatase Troponin I 151 H* 161 H* Total Protein Albumin TSH 1.39 COVID-19 Source Nasal/Nares SARS-CoV-2 (PCR) Negative Add-On Test Request PFSH All Active Problems (Updated 09/15/22 @ 16:45 by Jesse Robles MD) Sinus pause (Acute) TIA (transient ischemic attack) (Acute) Elevated troponin (Acute) Bradykinesia (Acute) Memory problem (Acute) Cervical radiculopathy (Acute) Sciatica (Acute) Neuropathic pain (Acute) Tremor (Acute) Abnormal movements (Acute) Actinic keratosis (Acute) History of CVA (cerebrovascular accident) (Acute) Pelvic pain in female (Acute) Squamous cell skin cancer (Acute) Granulomatous disorder of the skin and subcutaneous tissue, unspecified (Acute) Mixed stress and urge urinary incontinence (Acute) History of kidney stones (Acute) Recurrent UTI (urinary tract infection) (Acute) Left acute arterial ischemic stroke, MCA (middle cerebral artery) (Acute) Diabetes mellitus type 2, uncontrolled, with complications (Chronic) Hyperlipidemia associated with type 2 diabetes mellitus (Acute) Hypertension associated with diabetes (Chronic) ESE (acute kidney injury) (Acute) Allergic to IV contrast (Acute) Pain in right lower leg (Acute) Medical History Acne rosacea Adequate 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 on anticoagulant therapy Adjustment disorder with mixed anxiety and depressed mood Allergic rhinitis Asthma Atypical chest pain Carcinoma of skin CVA (cerebral vascular accident) Diabetic peripheral neuropathy Diarrhea H/O urinary frequency Hypercalcemia Hyperlipidemia Hyperparathyroidism Hypertension Intermittent asthma Microalbuminuria Myalgia Overflow incontinence Paroxysmal atrial fibrillation Peripheral neuropathy Reactive depression Type 2 diabetes mellitus Urge urinary incontinence Urinary incontinence Weakness of foot Surgical History Abdominal hysterectomy bladder repair,open Hx of colonoscopy Family History Other Diabetes Hyperlipidemia Hypertension Social History Smoking/Tobacco Use Status: Never Smoking risk assessment performed?: Yes Alcohol Intake: never Drug use: Never Substance use type: does not use Household members: spouse Housing: house Number of Children: 3 number of grandchildren: 7 Pets and animals: No Current gender identity: female What is your relationship status?: Panel score (0-1 are the most socially isolated patients): 1 What type of physical activity do you participate in: swimming Seatbelt use: always Do you feel safe at home: Yes Do you feel safe in your relationship?: Yes Time Spent with Patient Time Spent with Patient: 45-69 minutes Time was spent: preparing to see the patient(eg.review tests), obtaining and/or reviewing separately otained hiistory, referring, communicating with other health specialist wound care and indepentently interpreting results
--- NOTE | 2022-09-15 16:49 | NUR.NOTE ---
Nursing Note: Accessed chart to determine orders for EKG and to determine whether or not one needs to be cancelled.
== END 2022-09-15 17:20 | disposition home or self-care (01) ==
LOC: ER 20:01 → MS 22:45
PROVIDERS: Emergency Medicine; Family Medicine; Admitting Provider Family Medicine; Emergency Provider Emergency Medicine; PCP Internal Medicine; Visit Provider Family Medicine
DX: R29.818 Other symptoms and signs involving the nervous system (principal); R74.8 Abnormal levels of other serum enzymes; E11.59 Type 2 diabetes mellitus with other circulatory complications; E11.65 Type 2 diabetes mellitus with hyperglycemia; I48.20 Chronic atrial fibrillation, unspecified; Z79.01 Long term (current) use of anticoagulants; I10 Essential (primary) hypertension; E78.5 Hyperlipidemia, unspecified; Z79.4 Long term (current) use of insulin; I69.341 Monoplegia of lower limb following cerebral infarction affecting right dominant side; R41.3 Other amnesia; M54.12 Radiculopathy, cervical region; M54.30 Sciatica, unspecified side; R10.2 Pelvic and perineal pain; N39.46 Mixed incontinence; N17.9 Acute kidney failure, unspecified; L92.8 Other granulomatous disorders of the skin and subcutaneous tissue; J45.909 Unspecified asthma, uncomplicated; E11.42 Type 2 diabetes mellitus with diabetic polyneuropathy; F43.23 Adjustment disorder with mixed anxiety and depressed mood; E21.3 Hyperparathyroidism, unspecified; R25.1 Tremor, unspecified; I44.1 Atrioventricular block, second degree; I49.5 Sick sinus syndrome
CPT/HCPCS: 36415; 36416; 80053; 82962; 85027; 87635; 93005; 96360; 96361; 96372; 99223; 99285; 70450; 70551; 83036; 83735; 84443; 84484; 85025; 85610; 85730; 93010; 99239; G0378

== ENCOUNTER → 2022-09-15 13:29 | Outpatient (BNVA) | payer MEDICARE, SELFPAY | PROVIDERS: PCP Internal Medicine; Referring Provider Internal Medicine; Visit Provider Psychiatry & Neurology Neurology ==

== ENCOUNTER 2022-10-01 09:48 | Outpatient (RCR) | payer MEDICARE, SELFPAY ==
--- NOTE | 2022-10-01 10:00 | HOLTER_ITS ---
APPROVED REPORT Conclusion This is a 48-hour Holter monitor, reportedly ordered for elevated troponin Rhythm throughout was sinus with first-degree AV block and with an average heart rate of 67. Minimum was 44, maximum 102 There were occasional sporadic atrial and ventricular ectopic beats Sinus bradycardia and a brief episode of 2-1 AV block was noted during sleep. There was also Mobitz 1 second-degree AV block (Wenkebach) during sleep There was no atrial fibrillation, no SVT, no pauses greater than 3 seconds Patient symptoms of chest pain were reported which did not correspond to any dysrhythmia
== END 2022-10-18 23:59 | disposition home or self-care (01) ==
LOC: CARDOPNVT 09:48
PROVIDERS: PCP Internal Medicine; Visit Provider Internal Medicine
DX: R77.8 Other specified abnormalities of plasma proteins (principal); I44.0 Atrioventricular block, first degree; I44.1 Atrioventricular block, second degree; I49.1 Atrial premature depolarization; I49.3 Ventricular premature depolarization
CPT/HCPCS: 93227; 93225; 93226

== ENCOUNTER 2022-10-13 07:57 | Outpatient (CLI) | payer MEDICARE, SELFPAY ==
--- NOTE | 2022-10-13 07:45 | RT.EKG_ITS ---
APPROVED REPORT Exam: Resting ECG Reason for Exam: paroxysmal afib Patient Location: O HR:77 bpm ECG Measurements Heart Rate 77 AXIS NC 288 P 221 QRSd 114 QRS -31 QT 416 T 146 QTc 471 Conclusion Sinus rhythm Mobitz 1 second-degree AV block LVH with IVCD and secondary repol abnrm...multi-criteria, wQRSd, abnr ST-T
== END 2022-10-13 07:58 | disposition home or self-care (01) ==
LOC: DI.CARD 07:58
PROVIDERS: PCP Internal Medicine; Visit Provider Internal Medicine Cardiovascular Disease
DX: I48.0 Paroxysmal atrial fibrillation (principal)
CPT/HCPCS: 93010

== ENCOUNTER → 2022-10-13 11:20 | Outpatient (BNVA) | payer MEDICARE, SELFPAY | PROVIDERS: PCP Internal Medicine; Referring Provider Internal Medicine; Visit Provider Internal Medicine Cardiovascular Disease | DX: I44.1 Atrioventricular block, second degree (principal); R77.8 Other specified abnormalities of plasma proteins; Z79.01 Long term (current) use of anticoagulants; I48.0 Paroxysmal atrial fibrillation | CPT/HCPCS: 93005; 99203; 99214 ==

== ENCOUNTER 2022-10-13 12:42 | Outpatient (CLI) | payer MEDICARE, SELFPAY | END 2022-10-13 12:43 | disposition home or self-care (01) | PROVIDERS: PCP Internal Medicine; Visit Provider Internal Medicine Cardiovascular Disease | DX: I44.1 Atrioventricular block, second degree (principal); R77.8 Other specified abnormalities of plasma proteins | CPT/HCPCS: 93270 ==

== ENCOUNTER 2022-10-30 14:50 | Emergency (ER) | payer MEDICARE, SELFPAY ==
[2022-10-30] VITALS (11 sets, daily range): BP systolic 148–192; BP diastolic 70–76; PULSE 69–75; RESP 12–20; TEMP 36.8; O2SAT 94–99
--- NOTE | 2022-10-30 14:45 | RT.EKG_ITS ---
APPROVED REPORT Exam: Resting ECG Reason for Exam: symptoms Patient Location: E HR:71 bpm ECG Measurements Heart Rate 71 AXIS OR 297 P 269 QRSd 115 QRS -25 QT 428 T 146 QTc 465 Conclusion Sinus or ectopic atrial rhythm...P axis (-45,135) Prolonged OR interval...OR >220, V-rate 50- 90 LVH with IVCD and secondary repol abnrm...multi-criteria, wQRSd, abnr ST-T No major change vs 10/13/22 [id number] biphasic T waves V5,6 in prior have resolved
[2022-10-30 15:22] LABS: Abs Immature Grans 0.02 10^3/uL (0.0-0.06); Absolute Basophil Count 0.07 10^3/uL (0.0-0.2); Absolute Eosinophil Count 0.24 10^3/uL (0.0-0.7); Absolute Lymphocyte Count 3.98 10^3/uL (1.2-3.4); Absolute Monocyte Count 0.69 10^3/uL (0.1-0.8); Absolute Neutrophil Count 5.26 10^3/uL (1.2-6.7); Basophils % 0.7; Eosinophils % 2.3; HCT 38.8 % (36.0-46.0); HGB 13.3 g/dL (11.2-15.7); Immature Grans % 0.2; Lymphocytes % 38.8; MCH 30.3 pg (27.0-33.0); MCHC 34.3 % (32.0-36.0); MCV 88 fL (80-95); MPV 10.3 fL (8.0-11.0); Monocytes % 6.7; Neutrophils % 51.3; Platelet Count 303 10^3/uL (130-400); RBC 4.39 10^6/uL (3.93-5.22); RDW 13.4 % (11.7-14.6); RDW-SD 43.5 fL; WBC 10.26 10^3/uL (4.4-10.8)
--- NOTE | 2022-10-30 15:37 | ED.GENADUL_ITS ---
Discharge Plan Disposition Patient Disposition: Home Condition: Good Discharge Details Clinical Impression: Ventricular tachycardia, non-sustained Primary Care Provider: Bryant Crain ED Provider: Radha Gill Home Meds and New Rx's Prescriptions: Continued cholecalciferol (vitamin D3) 25 mcg (1,000 unit) capsule 25 mcg PO DAILY cyanocobalamin (vitamin B-12) 5,000 mcg capsule 1,000 mcg PO DAILY Eliquis 5 MG tablet 5 mg PO BID Qty: 180 3RF metformin 750 mg tablet extended release 24 hr 750 mg PO BID Rx Instructions: take with Metformin 500 mg tab cetirizine [Zyrtec] 10 mg tablet 10 mg PO DAILY Repatha Syringe 140 mg/mL syringe 140 mg subcut Q2W (DME) pen needle, diabetic Needle See Rx Instructions .ROUTE .MEDSUPPLY Qty: 1 Rx Instructions: As directed magnesium oxide 400 mg (241.3 mg magnesium) tablet 400 mg PO DAILY insulin lispro [Humalog KwikPen Insulin] 100 unit/mL insulin pen See Rx Instructions subcut DIRECTED Rx Instructions: per sliding scale subcut as directed; insulin glargine [Lantus U-100 Insulin] 100 unit/mL solution 30 unit SC QHS Patient Comments: says she takes 31U in am - 09/02/21 gabapentin 300 mg capsule 600 mg PO BID Qty: 360 3RF candesartan 32 MG tablet 32 mg PO DAILY acetaminophen [Tylenol] 325 MG tablet 650 mg PO Q4H PRN PRN (Reason: fever,pain) 0RF gabapentin 100 mg Capsule 100 mg PO DAILY PRN aspirin [Children's Aspirin] 81 mg Tablet,Chewable 81 mg PO DAILY Qty: 0 0RF Discharge Instructions Instructions: Tachycardia (ED) Additional Instructions: Return to ED for chest pain, difficulty breathing, weakness, or dizziness. Call Dr. Bhakta on Wednesday for a follow-up appointment. Discharge Data Discharge Date/Time-TO BE ENTERED AT DEPARTURE: 10/30/22 18:24 Medical Decision Making Patient reports that she sometimes has issues with short-term memory loss after her stroke. She did briefly get tearful when telling me this and I reassured her. She remembered exercising in the swimming pool this morning and not having any issues. [address] Edgardo Odonnell who from [facility]. He is not concerned about an 8 beat run of nonsustained V. tach or the other information I relayed to him from the monitor. Patient does have a [employer] Holter monitor on. He concurs with having the patient follow-up with Dr. Bhakta on Wednesday. 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 We will draw 1 more set of cardiac enzymes which they know about. Providing this is not significantly elevated the patient will be going home. Medical Records Medical records reviewed: Yes I reviewed the patient's medical records. Lab Data Lab results reviewed: Yes I reviewed the patient's lab results. Lab results narrative: Patient's comprehensive panel is benign with exception of a glucose of 194. Her mag is mildly low at 1.7 and calcium 10.2. Patient's troponin is mildly elevated at 148 but when I looked back that it is consistently elevated since 2017. We will likely repeat this although the patient has been asymptomatic. CBC is unremarkable. Will call cardiology at [facility] to see what additional recommendations they have. ECG Data Attestation: I personally reviewed and interpreted this ECG (s) as follows: (NSR at 70, first-degree AV block, LVH with IVCD, biphasic T waves in V5 and V6 have resolved compared to 10/13/2022) Prior ECG tracings: available for review HPI General Date/Time Provider Initiated Documentation: 10/30/22 14:51 . HPI Narrative: This 72-year-old female patient presents with a chief complaint of abnormalities noted on event monitor earlier this morning. The patient has a history of paroxysmal A-fib and is on Eliquis. 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 Being at 9:19 AM the patient had episode of Mobitz 1 with 3-second pause. At 10:18 AM she had an 8 beat run of V. tach. The patient states she was asymptomatic during this time and was actually swimming. October 19 she had a run of sustained atrial fibrillation at a rate of 50. She had a episode on October 20 of second-degree Mobitz 2 at a rate of 32. She has had other episodes first and second-degree AV block with heart rate this in the 30s and 40s. Patient has demonstrated multifocal PVCs. The patient states she feels a little bit tired today but this is common place for her and she usually takes a nap in the afternoon. She has had no weakness, dizziness, chest pain, shortness of breath, or any other symptoms. The patient did have a myocardial perfusion stress test in 2019 that was negative. Related Data Home Medications Medication Instructions Recorded Confirmed candesartan 32 mg tablet 32 mg PO DAILY 04/28/17 10/30/22 acetaminophen 325 mg tablet 650 mg PO Q4H PRN PRN fever,pain 04/30/17 10/30/22 (Tylenol) apixaban 5 mg tablet (Eliquis) 5 mg PO BID #180 tabs 09/01/17 10/30/22 cetirizine 10 mg tablet (Zyrtec) 10 mg PO DAILY 10/25/19 10/30/22 metformin 750 mg tablet,extended 750 mg PO BID 10/25/19 10/30/22 release 24 hr evolocumab 140 mg/mL subcutaneous 140 mg subcut Q2W 12/12/20 10/30/22 syringe (Repatha Syringe) magnesium oxide 400 mg (241.3 mg 400 mg PO DAILY 12/12/20 10/30/22 magnesium) tablet pen needle, diabetic ##1 12/12/20 10/30/22 insulin lispro 100 unit/mL See Rx Instructions subcut 08/04/21 10/30/22 subcutaneous pen (Humalog KwikPen DIRECTED (U-100) Insulin) cholecalciferol (vitamin D3) 25 25 mcg PO DAILY 09/02/21 10/30/22 mcg (1,000 unit) capsule cyanocobalamin (vitamin B-12) 1,000 mcg PO DAILY 02/03/22 10/30/22 5,000 mcg capsule insulin glargine 100 unit/mL 30 unit subcut QHS 02/03/22 10/30/22 subcutaneous solution (Lantus U-100 Insulin) gabapentin 100 mg capsule 100 mg PO DAILY PRN 09/14/22 10/30/22 aspirin 81 mg chewable tablet 81 mg PO DAILY #0 tabs 09/15/22 10/30/22 (Children's Aspirin) gabapentin 300 mg capsule 600 mg PO BID #360 caps 09/15/22 10/30/22 Previous Rx's Medication Instructions Recorded acetaminophen 325 mg tablet 650 mg PO Q4H PRN PRN fever,pain 04/30/17 (Tylenol) apixaban 5 mg tablet (Eliquis) 5 mg PO BID #180 tabs 09/01/17 aspirin 81 mg chewable tablet 81 mg PO DAILY #0 tabs 09/15/22 (Children's Aspirin) gabapentin 300 mg capsule 600 mg PO BID #360 caps 09/15/22 Allergies Allergy/AdvReac Type Severity Reaction Status Date / Time Iodinated Contrast Media Allergy Severe Anaphylaxsis Verified 09/14/22 10:54 [Iodinated Contrast- Oral ( and IV Dye] TOLERATED WITH PREMEDS 05/05/17) atenolol Allergy Mild Verified 09/14/22 10:54 ezetimibe [From Zetia] Allergy Mild Verified 09/14/22 10:54 hydroxychloroquine Allergy Mild Verified 09/14/22 10:54 [From Plaquenil] lisinopril Allergy Mild Verified 09/14/22 10:54 losartan [From Cozaar] Allergy Mild Verified 09/14/22 10:54 cephalexin Allergy Rash Verified 09/14/22 10:54 ciprofloxacin Allergy Verified 09/14/22 10:54 Hbujxzf-OXL-NhR Reductase Allergy Verified 09/14/22 10:54 Inhibitor [Jbncocl-Ddw-Tfp Reductase Inhibitor] oxycodone HCl [From Percocet] AdvReac CRAZY Verified 09/14/22 10:54 General Stated Complaint: GenMedical KATHLEEN: 3 Review of Systems Constitutional Constitutional: Denies chills, Denies fever(s), Denies headache(s) and Denies weakness Eyes Eyes: Denies diplopia and Reports other (no redness) ENT Ears, Nose, Mouth, and Throat: Denies otalgia, Denies headache(s), Denies nasal congestion, Denies nasal discharge, Denies neck pain and Denies sore throat Cardiovascular Cardiovascular: Denies chest pain, Denies palpitations and Denies dyspnea Respiratory Respiratory: Denies cough and Denies dyspnea Gastrointestinal Gastrointestinal: Denies abdominal pain, Denies diarrhea, Denies nausea and Denies vomiting Genitourinary Genitourinary: Denies dysuria Musculoskeletal Musculoskeletal: Denies myalgias, Denies muscle weakness, Denies neck pain, Denies numbness and Reports other (edema) Integumentary/Breasts Skin/Breast: Denies change in pigmentation and Denies rash Neurologic Neurologic: Denies headache(s), Denies numbness and Denies weakness Endocrine Endocrine: Denies palpitations PFSH All Active Problems (Updated 10/30/22 @ 17:43 by Radha Gill MD) Ventricular tachycardia, non-sustained (Acute) Mobitz type 1 second degree AV block (Acute) Sinus pause (Acute) Elevated troponin (Acute) Bradykinesia (Acute) Memory problem (Acute) Cervical radiculopathy (Acute) Sciatica (Acute) Neuropathic pain (Acute) Tremor (Acute) Abnormal movements (Acute) Actinic keratosis (Acute) History of CVA (cerebrovascular accident) (Acute) Pelvic pain in female (Acute) Squamous cell skin cancer (Acute) Granulomatous disorder of the skin and subcutaneous tissue, unspecified (Acute) Mixed stress and urge urinary incontinence (Acute) History of kidney stones (Acute) Recurrent UTI (urinary tract infection) (Acute) Left acute arterial ischemic stroke, MCA (middle cerebral artery) (Acute) Diabetes mellitus type 2, uncontrolled, with complications (Chronic) Hyperlipidemia associated with type 2 diabetes mellitus (Acute) Hypertension associated with diabetes (Chronic) ESE (acute kidney injury) (Acute) Allergic to IV contrast (Acute) Pain in right lower leg (Acute) Medical History Acne rosacea Adequate 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 on anticoagulant therapy Adjustment disorder with mixed anxiety and depressed mood Allergic rhinitis Asthma Atypical chest pain Carcinoma of skin CVA (cerebral vascular accident) Diabetic peripheral neuropathy Diarrhea H/O urinary frequency Hypercalcemia Hyperlipidemia Hyperparathyroidism Hypertension Intermittent asthma Microalbuminuria Myalgia Overflow incontinence Paroxysmal atrial fibrillation Peripheral neuropathy Reactive depression Type 2 diabetes mellitus Urge urinary incontinence Urinary incontinence Weakness of foot Surgical History Abdominal hysterectomy bladder repair,open Hx of colonoscopy Family History Other Diabetes Hyperlipidemia Hypertension Social History Smoking/Tobacco Use Status: Never Smoking risk assessment performed?: Yes Alcohol Intake: never Drug use: Never Substance use type: does not use Household members: spouse Housing: house Number of Children: 3 number of grandchildren: 7 Pets and animals: No Current gender identity: female What is your relationship status?: Panel score (0-1 are the most socially isolated patients): 1 What type of physical activity do you participate in: swimming Seatbelt use: always Do you feel safe at home: Yes Do you feel safe in your relationship?: Yes Exam Const General: no acute distress, well developed, well groomed and not in acute distress Nutritional Appearance: well nourished Orientation: alert and oriented x3 HENMT Head: normocephalic and atraumatic Ears: external ears normal Mouth: oropharynx normal and moist mucous membranes Throat: posterior oropharynx normal Eyes Conjunctivae: conjunctivae normal Neck Neck: full ROM and supple Chest Chest: normal inspection of the chest Resp Effort & Inspection: normal respiratory effort Auscultation: clear to auscultation bilaterally Cardio Rate: regular rate Rhythm: regular rhythm Heart Sounds: no murmurs and no rubs GI Inspection: normal to inspection Palpation: soft, nontender and other (non distended) Auscultation: normal bowel sounds Skin General skin exam: no rashes or lesions noted and other (pink, warm, dry) Neuro General: patient alert, patient awake and patient oriented x3 Speech: speech normal Motor: other (DE LEON) Sensory Exam: no sensory deficits noted Extrem General: normal to inspection, full ROM and pedal edema present Psych Mental Status: mental status grossly normal Speech and Movement: speech and movement normal Affect: normal affect Course Vital Signs Vital signs: Vital Signs Temperature 36.8 C 10/30/22 14:53 Pulse 75 10/30/22 14:53 Respiratory Rate 18 10/30/22 14:53 Blood Pressure 192/74 H 10/30/22 14:53 Pulse Oximetry 99 10/30/22 14:53 Temperature 36.8 C 10/30/22 14:53 Temperature Source Oral 10/30/22 14:53 Pulse 75 10/30/22 14:53 Respiratory Rate 18 10/30/22 15:02 Respiratory Effort Normal 10/30/22 15:04 Respiratory Depth Normal 10/30/22 15:04 Respiratory Pattern Normal 10/30/22 15:04 Blood Pressure 192/74 H 10/30/22 14:53 Blood Pressure Position Sitting 10/30/22 14:53 Pulse Oximetry 99 10/30/22 14:53 Oxygen Delivery Method Room Air 10/30/22 14:53 Oxygen Flow Rate 0 10/30/22 14:53 Pain Level 0 10/30/22 14:53 Lab/Test Results Lab/Test Results: Laboratory Tests EKG: Normal sinus rhythm at 70 with first-degree AV block, LVH with interventricular conduction delay and repull abnormality, biphasic T waves demonstrated in V5 and V6 on 10/13/2022 have resolved on this EKG Range/Units 10/30/22 15:13 WBC (4.4-10.8) 10^3/uL 10.26 RBC (3.93-5.22) 10^6/uL 4.39 Hgb (11.2-15.7) g/dL 13.3 Hct (36.0-46.0) % 38.8 MCV (80-95) fL 88 MCH (27.0-33.0) pg 30.3 MCHC (32.0-36.0) % 34.3 RDW (11.7-14.6) % 13.4 Plt Count (130-400) 10^3/uL 303 MPV (8.0-11.0) fL 10.3 Immature Gran % 0.2 Neutrophils % 51.3 Lymphocytes % 38.8 Monocytes % 6.7 Eosinophils % 2.3 Basophils % 0.7 Nucleated RBC % (0.0-0.3) % 0.0 Absolute Neutrophils (1.2-6.7) 10^3/uL 5.26 Absolute Lymphocytes (1.2-3.4) 10^3/uL 3.98 H Absolute Monocytes (0.1-0.8) 10^3/uL 0.69 Absolute Eosinophils (0.0-0.7) 10^3/uL 0.24 Absolute Basophils (0.0-0.2) 10^3/uL 0.07
[2022-10-30 15:40] LABS: ALT 18 U/L (14-59); AST 10 U/L (15-37); Albumin 3.6 g/dL (3.4-5.0); Alkaline Phosphatase 59 U/L (46-116); Anion Gap 6.3 mmol/L (3-11); BUN 13 mg/dL (7-18); Bilirubin, Total 0.3 mg/dL (0.2-1.0); CO2 24.7 mmol/L (21.0-32.0); Calcium 10.2 mg/dL (8.5-10.1); Chloride 109 mmol/L (98-107); Estimated GFR 60.61 (mL/min/1.73m2); Glucose 184 mg/dL (74-106); Magnesium 1.7 mg/dL (1.8-2.4); Potassium 4.2 mmol/L (3.5-5.1); Sodium 140 mmol/L (136-145); Total Protein 6.9 g/dL (6.4-8.2)
[2022-10-30 15:45] LABS: Troponin I 148 ng/L (<or=60)
[2022-10-30 18:19] LABS: Troponin I 158 ng/L (<or=60)
--- NOTE | 2022-10-31 08:49 | NUR.NOTE ---
Nursing Note:Accessed chart to determine orders for EKG and to determine whether or not one needs to be cancelled.
== END 2022-10-30 18:24 | disposition home or self-care (01) ==
PROVIDERS: Emergency Provider Emergency Medicine; PCP Internal Medicine
DX: I47.29 Other ventricular tachycardia (principal); I44.1 Atrioventricular block, second degree; I10 Essential (primary) hypertension; I69.311 Memory deficit following cerebral infarction; E11.9 Type 2 diabetes mellitus without complications
CPT/HCPCS: 80053; 93005; 99283; 83735; 84484; 85025; 93010; 99284

== ENCOUNTER 2022-11-02 14:10 | Emergency (ER) | payer MEDICARE, SELFPAY ==
[2022-11-02] VITALS (22 sets, daily range): BP systolic 130–183; BP diastolic 70–86; PULSE 75–96; RESP 15–23; TEMP 37.4; O2SAT 86–98
--- NOTE | 2022-11-02 15:02 | W.ED.GENAD ---
Discharge Plan Disposition Patient Disposition: Home Condition: Stable Discharge Details Clinical Impression: Kidney stone on left side Primary Care Provider: Bryant Crain ED Provider: Justin Gonzalez Home Meds and New Rx's Prescriptions: New ondansetron 4 mg tablet,disintegrating 4 mg PO Q8H PRN (Reason: nausea and vomiting) Qty: 30 0RF Continued cholecalciferol (vitamin D3) 25 mcg (1,000 unit) capsule 25 mcg PO DAILY cyanocobalamin (vitamin B-12) 5,000 mcg capsule 1,000 mcg PO DAILY Eliquis 5 MG tablet 5 mg PO BID Qty: 180 3RF metformin 750 mg tablet extended release 24 hr 750 mg PO BID Rx Instructions: take with Metformin 500 mg tab cetirizine [Zyrtec] 10 mg tablet 10 mg PO DAILY Repatha Syringe 140 mg/mL syringe 140 mg subcut Q2W (DME) pen needle, diabetic Needle See Rx Instructions .ROUTE .MEDSUPPLY Qty: 1 Rx Instructions: As directed magnesium oxide 400 mg (241.3 mg magnesium) tablet 400 mg PO DAILY insulin lispro [Humalog KwikPen Insulin] 100 unit/mL insulin pen See Rx Instructions subcut DIRECTED Rx Instructions: per sliding scale subcut as directed; insulin glargine [Lantus U-100 Insulin] 100 unit/mL solution 30 unit SC QHS Patient Comments: says she takes 31U in am - 09/02/21 candesartan 32 MG tablet 32 mg PO DAILY acetaminophen [Tylenol] 325 MG tablet 650 mg PO Q4H PRN PRN (Reason: fever,pain) 0RF gabapentin 100 mg Capsule 300 mg PO BID aspirin [Children's Aspirin] 81 mg Tablet,Chewable 81 mg PO DAILY Qty: 0 0RF Ozempic 2 mg/dose (8 mg/3 mL) pen injector 2 mg SUBCUT QWEEK Patient Comments: Inject 0.25 mg subcutaneously once a week gabapentin 300 mg capsule 600 mg PO HS Discharge Instructions Instructions: Kidney Stones (ED) Additional Instructions: you have a 4mm kidney stone on the left side You should receive a call from the urology office for follow up if you feel more ill, have severe worsening pain or fevers return to the emergency department Medical Decision Making <Tonya Mitchell DO - Last Filed: 11/02/22 15:31> 72-year-old female with a history of hypertension, hyperlipidemia, type 2 diabetes, paroxysmal atrial fibrillation, CVA and hysterectomy presents for left lower abdominal pain, vomiting and dark urine today. Reports her symptoms do feel similar with previous kidney stones. Her blood pressure is hypertensive, remainder of vitals are within normal limits. Patient appears generally comfortable and nontoxic. Her abdomen is soft and tender in the left upper and lower quadrants. She has no rigidity or peritoneal signs. She does have left-sided CVA tenderness. Differential diagnosis includes kidney stones, diverticulitis, pancreatitis, UTI, pyelonephritis, small bowel obstruction, appendicitis. I had ordered a CT abdomen and pelvis with IV contrast but radiology called to report the patient has a history of anaphylaxis. I discussed this with patient and she reports she had a history of itching several years ago but no respiratory symptoms and did have a CT with IV contrast in 2017 and tolerated this well with pretreatment. We will therefore obtain screening labs, urinalysis, CT abdomen and pelvis with oral and IV contrast. A dose of IV Solu-Medrol and IV Benadryl ordered. We will give a dose of IV Tylenol, IV Reglan and fluid bolus. Case endorsed to Dr. Gonzalez to follow-up on labs and imaging and final disposition. Medical Records Medical records reviewed: Yes I reviewed the patient's medical records. <Justin Gonzalez MD - Last Filed: 11/02/22 18:57> 72-year-old female with a history of hypertension, hyperlipidemia, type 2 diabetes, paroxysmal atrial fibrillation, CVA and hysterectomy presents for left lower abdominal pain, vomiting and dark urine today. Reports her symptoms do feel similar with previous kidney stones. Her blood pressure is hypertensive, remainder of vitals are within normal limits. Patient appears generally comfortable and nontoxic. Her abdomen is soft and tender in the left upper and lower quadrants. She has no rigidity or peritoneal signs. She does have left-sided CVA tenderness. Differential diagnosis includes kidney stones, diverticulitis, pancreatitis, UTI, pyelonephritis, small bowel obstruction, appendicitis. I had ordered a CT abdomen and pelvis with IV contrast but radiology called to report the patient has a history of anaphylaxis. I discussed this with patient and she reports she had a history of itching several years ago but no respiratory symptoms and did have a CT with IV contrast in 2017 and tolerated this well with pretreatment. We will therefore obtain screening labs, urinalysis, CT abdomen and pelvis with oral and IV contrast. A dose of IV Solu-Medrol and IV Benadryl ordered. We will give a dose of IV Tylenol, IV Reglan and fluid bolus. Case endorsed to Dr. Gonzalez to follow-up on labs and imaging and final disposition. pt's labs show mild elevation of troponin which on review of priors is chronic for her and less then when she was admitted recently for possible tia. CT confirms kidney stone on the left side. no signs of allergic response and she states it was over 30 years ago when she had some mild itching at the site of injection of contrast, had no rashes or other symptoms so do not feel she has a true allergy to contrast. She feels significantly better and has no pain now and wishes for d/c which I feel is reasonable given she has no pain and denies ever having chest pain or dyspnea. She had an o2 sat of 87% sleeping but when I was talking with her she was 95% on room air and no evidence of respiratory distress. Placed on the f/u list to see urology, return precautions given Lab Data Lab results reviewed: Yes I reviewed the patient's lab results. ECG Data Attestation: I personally reviewed and interpreted this ECG (s) as follows: Prior ECG tracings: available for review Interpretation: sinus, rate of 84, pr 282, lvh, no acute changes from prior ekg HPI <Tonya Mitchell DO - Last Filed: 11/02/22 15:31> General Mode of arrival: ambulatory. Date/Time Provider Initiated Documentation: 11/02/22 14:18. Limitations to Documentation: no limitations. Information obtained by: patient. HPI Narrative: Patient is a 72-year-old female with a history of hypertension, hyperlipidemia, paroxysmal atrial fibrillation, type 2 diabetes, CVA, hysterectomy who was sent here from [facility] for concern for a kidney stone. Patient states she developed left-sided lower abdominal pain which she describes as aching and intermittent since this morning. She denies any aggravating or alleviating factors. She has not taken any medication for pain. She states the pain does feel similar to when she has had a kidney stone in the past but states this is a long time ago. [facility] had also reported that patient complained of blood in her urine but patient states that just appears dark and denies any pink or red color. Patient also admits to a few episodes of vomiting today which was bilious. She denies any hematemesis. She denies any known fever, chest pain, difficulty breathing, dysuria, frequency or urgency. She denies any flank pain. Related Data Home Medications Medication Instructions Recorded Confirmed candesartan 32 mg tablet 32 mg PO DAILY 04/28/17 11/02/22 acetaminophen 325 mg tablet 650 mg PO Q4H PRN PRN fever,pain 04/30/17 10/30/22 (Tylenol) apixaban 5 mg tablet (Eliquis) 5 mg PO BID #180 tabs 09/01/17 11/02/22 cetirizine 10 mg tablet (Zyrtec) 10 mg PO DAILY 10/25/19 11/02/22 metformin 750 mg tablet,extended 750 mg PO BID 10/25/19 11/02/22 release 24 hr evolocumab 140 mg/mL subcutaneous 140 mg subcut Q2W 12/12/20 11/02/22 syringe (Repatha Syringe) magnesium oxide 400 mg (241.3 mg 400 mg PO DAILY 12/12/20 11/02/22 magnesium) tablet pen needle, diabetic ##1 12/12/20 10/30/22 insulin lispro 100 unit/mL See Rx Instructions subcut 08/04/21 11/02/22 subcutaneous pen (Humalog KwikPen DIRECTED (U-100) Insulin) cholecalciferol (vitamin D3) 25 25 mcg PO DAILY 09/02/21 11/02/22 mcg (1,000 unit) capsule cyanocobalamin (vitamin B-12) 1,000 mcg PO DAILY 02/03/22 11/02/22 5,000 mcg capsule insulin glargine 100 unit/mL 30 unit subcut QHS 02/03/22 11/02/22 subcutaneous solution (Lantus U-100 Insulin) gabapentin 100 mg capsule 300 mg PO BID 09/14/22 11/02/22 aspirin 81 mg chewable tablet 81 mg PO DAILY #0 tabs 09/15/22 11/02/22 (Children's Aspirin) gabapentin 300 mg capsule 600 mg PO HS 11/02/22 11/02/22 ondansetron 4 mg disintegrating 4 mg PO Q8H PRN nausea and 11/02/22 tablet vomiting #30 tabs semaglutide 2 mg/dose (8 mg/3 mL) 2 mg subcut QWEEK 11/02/22 11/02/22 subcutaneous pen injector (Ozempic) Previous Rx's Medication Instructions Recorded acetaminophen 325 mg tablet 650 mg PO Q4H PRN PRN fever,pain 04/30/17 (Tylenol) apixaban 5 mg tablet (Eliquis) 5 mg PO BID #180 tabs 09/01/17 aspirin 81 mg chewable tablet 81 mg PO DAILY #0 tabs 09/15/22 (Children's Aspirin) ondansetron 4 mg disintegrating 4 mg PO Q8H PRN nausea and 11/02/22 tablet vomiting #30 tabs Allergies Allergy/AdvReac Type Severity Reaction Status Date / Time atenolol Allergy Mild Verified 11/02/22 14:12 ezetimibe [From Zetia] Allergy Mild Verified 11/02/22 14:12 hydroxychloroquine Allergy Mild Verified 11/02/22 14:12 [From Plaquenil] lisinopril Allergy Mild Verified 11/02/22 14:12 losartan [From Cozaar] Allergy Mild Verified 11/02/22 14:12 cephalexin Allergy Rash Verified 09/14/22 10:54 ciprofloxacin Allergy Verified 09/14/22 10:54 Ldxgxnf-BLQ-AvR Reductase Allergy Verified 11/02/22 14:12 Inhibitor [Bwnhygc-Wpv-Xbg Reductase Inhibitor] oxycodone HCl [From Percocet] AdvReac CRAZY Verified 11/02/22 14:12 General Stated Complaint: Urinary KATHLEEN: 3 Review of Systems <Tonya Mitchell DO - Last Filed: 11/02/22 15:31> All systems reviewed & are unremarkable except as noted in HPI and below Constitutional Constitutional: Reports as per HPI, Denies chills and Denies fever(s) Eyes Eyes: Denies blurry vision ENT Ears, Nose, Mouth, and Throat: Denies dizziness, Denies sore throat and Denies throat swelling Cardiovascular Cardiovascular: Denies chest pain and Denies dyspnea Respiratory Respiratory: Denies cough and Denies dyspnea Gastrointestinal Gastrointestinal: Reports abdominal pain, Denies diarrhea, Reports nausea and Reports vomiting Genitourinary Genitourinary: Denies hematuria and Denies dysuria Musculoskeletal Musculoskeletal: Denies back pain and Denies numbness Integumentary/Breasts Skin/Breast: Denies lesions and Denies rash Neurologic Neurologic: Denies dizziness, Denies localized weakness and Denies numbness Allergic/Immunologic Allergic/Immunologic: Denies throat swelling [facility] <Tonya Mitchell, - Last Filed: 11/02/22 15:31> All Active Problems (Updated 11/02/22 @ 18:51 by Justin Gonzalez MD) Ventricular tachycardia, non-sustained (Acute) Kidney stone on left side (Acute) Mobitz type 1 second degree AV block (Acute) Sinus pause (Acute) Elevated troponin (Acute) Bradykinesia (Acute) Memory problem (Acute) Cervical radiculopathy (Acute) Sciatica (Acute) Neuropathic pain (Acute) Tremor (Acute) Abnormal movements (Acute) Actinic keratosis (Acute) History of CVA (cerebrovascular accident) (Acute) Pelvic pain in female (Acute) Squamous cell skin cancer (Acute) Granulomatous disorder of the skin and subcutaneous tissue, unspecified (Acute) Mixed stress and urge urinary incontinence (Acute) History of kidney stones (Acute) Recurrent UTI (urinary tract infection) (Acute) Left acute arterial ischemic stroke, MCA (middle cerebral artery) (Acute) Diabetes mellitus type 2, uncontrolled, with complications (Chronic) Hyperlipidemia associated with type 2 diabetes mellitus (Acute) Hypertension associated with diabetes (Chronic) ESE (acute kidney injury) (Acute) Allergic to IV contrast (Acute) Pain in right lower leg (Acute) Medical History Acne rosacea Adequate 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 on anticoagulant therapy Adjustment disorder with mixed anxiety and depressed mood Allergic rhinitis Asthma Atypical chest pain Carcinoma of skin CVA (cerebral vascular accident) Diabetic peripheral neuropathy Diarrhea H/O urinary frequency Hypercalcemia Hyperlipidemia Hyperparathyroidism Hypertension Intermittent asthma Microalbuminuria Myalgia Overflow incontinence Paroxysmal atrial fibrillation Peripheral neuropathy Reactive depression Type 2 diabetes mellitus Urge urinary incontinence Urinary incontinence Weakness of foot Surgical History Abdominal hysterectomy bladder repair,open Hx of colonoscopy Family History Other Diabetes Hyperlipidemia Hypertension Social History Smoking/Tobacco Use Status: Never Smoking risk assessment performed?: Yes Alcohol Intake: never Drug use: Never Substance use type: does not use Household members: spouse Housing: house Number of Children: 3 number of grandchildren: 7 Pets and animals: No Current gender identity: female What is your relationship status?: Panel score (0-1 are the most socially isolated patients): 1 What type of physical activity do you participate in: swimming Seatbelt use: always Do you feel safe at home: Yes Do you feel safe in your relationship?: Yes Exam <Tonya Mitchell DO - Last Filed: 11/02/22 15:31> Const General: cooperative and no acute distress Orientation: alert, awake and oriented x3 HENMT Head: normal to inspection Face and sinus: normal facial exam Eyes General: appearance normal, both eyes and all related structures Pupils: PERRL EOM: EOM intact bilaterally Neck Neck: normal visual inspection and No submandibular swelling Lymphatic: no lymphadenopathy noted Chest Chest: normal inspection of the chest and no tenderness Resp Effort & Inspection: normal respiratory effort and able to speak in complete sentences Auscultation: clear to auscultation bilaterally Cardio Rate: regular rate Rhythm: regular rhythm GI Inspection: normal to inspection Palpation: soft, not firm, not rigid and tender in the LLQ and in the LUQ Auscultation: hypoactive bowel sounds Back/Spine/Pelvis Back: CVA tenderness (Left side) Skin General skin exam: no rashes or lesions noted Neuro General: patient alert, patient awake and patient oriented x3 Cognition: normal cognition Speech: speech normal Motor: muscle tone normal throughout Sensory Exam: no sensory deficits noted Extrem General: normal to inspection, full ROM, capillary refill normal, no calf tenderness bilaterally and no edema Psych Appearance: grossly normal Mental Status: mental status grossly normal Speech and Movement: speech and movement normal Affect: normal affect Course <Tonya Mitchell DO - Last Filed: 11/02/22 15:31> Vital Signs Vital signs: Vital Signs Temperature 99.3 F 11/02/22 14:22 Pulse 75 11/02/22 14:22 Respiratory Rate 20 11/02/22 14:22 Blood Pressure 171/83 H 11/02/22 14:22 Pulse Oximetry 98 11/02/22 14:22 Temperature 99.3 F 11/02/22 14:22 Temperature Source Oral 11/02/22 14:22 Pulse 75 11/02/22 14:22 Respiratory Rate 20 11/02/22 14:22 Respiratory Effort Normal, Non-Labored 11/02/22 14:48 Blood Pressure 171/83 H 11/02/22 14:22 Blood Pressure Position Sitting 11/02/22 14:22 Pulse Oximetry 98 11/02/22 14:22 Oxygen Delivery Method Room Air 11/02/22 14:22 Oxygen Flow Rate 0 11/02/22 14:22 Pain Level 8 11/02/22 14:48 Sign Out <Tonya Mitchell DO - Last Filed: 11/02/22 15:31> Sign Out Data: Sign Out Comment: Left-sided abdominal pain, vomiting and dark urine since this morning. Has history of kidney stones. Follow-up on labs and imaging and final disposition. Last updated by Tonya Mitchell DO at 11/02/22 15:32
--- NOTE | 2022-11-02 15:15 | DI.CT_ITS ---
Exam(s) CT ABDOMEN PELVIS W EXAM: CT ABDOMEN PELVIS W CLINICAL HISTORY: LLQ abd pain, LUQ tender TECHNIQUE: Imaging Protocol: Axial computed tomography images with coronal and sagittal reformatted images were created and reviewed CONTRAST MATERIAL: Intravenous: Omnipaque 350 Contrast volume:100 mL Oral: Yes COMPARISON: There are no priors for comparison. FINDINGS: ABDOMEN: Lung Bases: Coronary artery calcifications are present. There is calcification of the mitral annulus . Liver: The liver does appear to be of decreased attenuation suggesting fatty infiltration. No measur able mass. Portal, Superior Mesenteric, and Splenic Veins: Unremarkable. Gallbladder and Biliary Tract: Cholelithiasis. No biliary ductal dilatation. Pancreas: Normal density. There is a calcification in the head of the pancreas. No focal pancreatic lesion is seen. Spleen: Normal. Adrenals: No masses seen. Kidneys: Normal size, contour and axis. There is a 4 mm stone in the left mid ureter with delayed enh ancement of the left kidney consistent with obstruction. The proximal renal collecting system on the left is mildly dilated. There are several well-circumscribed hypodense fluid attenuation lesions in the kidneys. They are most consistent with simple cysts. No follow-up is recommended. The largest measures 2.2 cm and is located on the right kidney. Abdominal Aorta: Abdominal portion non-dilated. Atherosclerosis is present. Bowel: No obstruction or bowel wall thickening. There is no evidence of appendicitis. Peritoneal Cavity: No ascites, collection or mesenteric inflammatory response. No free air. Lymph Nodes: Within normal limits. Bones: Within normal limits for the patient's age. Soft Tissues: There is a small fat containing umbilical hernia. PELVIS: Bladder: Symmetric distention, no gross wall thickening. Reproductive Organs: Status post hysterectomy. Lymph Nodes: Within normal limits. Bones: Within normal limits for the patient's age. Mild L4-5 anterolisthesis with mild bilateral ashely ral foraminal narrowing. IMPRESSION: 1. 4 mm obstructing stone in the left mid ureter causing mild hydronephrosis. 2. Cholelithiasis without CT evidence of acute cholecystitis. RADIATION DOSE DELIVERED: 758.38mGy.cm Total DLP DATA REPOSITORY: All CT scans at this facility are submitted to the National Radiology Data Registry (NRDR) Dose Index Registry (DIR) with the [employer] (A[employer]). RADIATION OPTIMIZATION: All CT scans at this facility use at least one of these dose optimization te chniques: automated exposure control; mA and/or kV adjustment per patient size (includes targeted exa ms where dose is matched to clinical indication); or iterative reconstruction.
[2022-11-02 15:17] LABS: Abs Immature Grans 0.06 10^3/uL (0.0-0.06); Absolute Basophil Count 0.05 10^3/uL (0.0-0.2); Absolute Eosinophil Count 0.01 10^3/uL (0.0-0.7); Absolute Lymphocyte Count 1.45 10^3/uL (1.2-3.4); Absolute Monocyte Count 0.38 10^3/uL (0.1-0.8); Absolute Neutrophil Count 11.19 10^3/uL (1.2-6.7); Basophils % 0.4; Eosinophils % 0.1; HCT 41.2 % (36.0-46.0); HGB 14.1 g/dL (11.2-15.7); Immature Grans % 0.5; MCH 30.3 pg (27.0-33.0); MCHC 34.2 % (32.0-36.0); MCV 88 fL (80-95); MPV 10.1 fL (8.0-11.0); Monocytes % 2.9; Neutrophils % 85.1; Platelet Count 318 10^3/uL (130-400); RBC 4.66 10^6/uL (3.93-5.22); RDW 13.5 % (11.7-14.6); RDW-SD 43.7 fL; WBC 13.15 10^3/uL (4.4-10.8)
[2022-11-02 15:31] LABS: ALT 33 U/L (14-59); AST 38 U/L (15-37); Albumin 3.8 g/dL (3.4-5.0); Alkaline Phosphatase 60 U/L (46-116); Anion Gap 7.2 mmol/L (3-11); BUN 17 mg/dL (7-18); Bilirubin, Total 0.5 mg/dL (0.2-1.0); CO2 24.8 mmol/L (21.0-32.0); CREATININE 1.3 mg/dL (0.55-1.02); Calcium 10.6 mg/dL (8.5-10.1); Chloride 106 mmol/L (98-107); Estimated GFR 44.24 (mL/min/1.73m2); Glucose 257 mg/dL (74-106); Potassium 4.6 mmol/L (3.5-5.1); Sodium 138 mmol/L (136-145); Total Protein 7.5 g/dL (6.4-8.2)
[2022-11-02] MEDS: Barium Sulfate 2% W/V-Berry Smoothie 450 ML BTL 900 ML PO (15:31)
[2022-11-02] MEDS: diphenhydrAMINE 50 MG/ML VIAL IVP (15:38)
[2022-11-02] MEDS: Metoclopramide 10 MG/2 ML VIAL IVP (15:38)
[2022-11-02] MEDS: ACETAMINOPHEN 1,000 MG/100 ML BTL 400 MG IVPB (15:38)
[2022-11-02] MEDS: methylPREDNISolone SUCC 125 MG VIAL IVP (15:38)
[2022-11-02] MEDS: Normal Saline 250 ML 500 ML IV (15:39)
[2022-11-02 16:01] LABS: Magnesium 1.9 mg/dL (1.8-2.4)
[2022-11-02 16:03] LABS: Troponin I 84 ng/L (<or=60)
[2022-11-02 16:09] LABS: Clarity Cloudy (Clear)
[2022-11-02 16:23] LABS: Specific Gravity 1.027 (1.005-1.025)
[2022-11-02 16:25] LABS: Bilirubin Color Interference (Negative); Blood Color Interference (Negative); Glucose Color Interference mg/dL (Negative); Ketones Color Interference mg/dL (Negative); Leukocyte Esterase Color Interference (Negative); Nitrite Color Interference (Negative); Urobilinogen Color Interference mg/dL (Up to 0.2)
[2022-11-02 16:29] LABS: Bacteria Few HPF (Negative); Casts Negative LPF (Negative); Crystals Negative HPF (Negative); Epithelial Cells Moderate HPF (Negative); Mucus Negative (Negative); RBC >50 HPF (0-2)
[2022-11-02 16:30] LABS: C & S Indicated? No/Sq. Contamination
[2022-11-02] MEDS: Normal Saline Flush 10 ML SYR IVP (17:33)
[2022-11-02] MEDS: Normal Saline - Diluent 50 ML VIAL IJ (17:33)
[2022-11-02] MEDS: Omnipaque 350 MG/ML 100 ML BTL IJ (17:34)
[2022-11-02] MEDS: Ondansetron 4 MG/2 ML VIAL (17:49)
[2022-11-02] MEDS: Ketorolac 15 MG/ML VIAL IVP (17:59)
--- NOTE | 2022-11-02 18:15 | DI.VRAD_ITS ---
PROCEDURE INFORMATION: Exam: CT Abdomen And Pelvis With Contrast Exam date and time: 11/02/2022 5:33 PM Age: 72 years old Clinical indication: Llq, abd pain, luq tender; Prior surgery; Surgery date: 6+ months; Surgery type: Hysterectomy TECHNIQUE: Imaging protocol: Computed tomography of the abdomen and pelvis with contrast. Radiation optimization: All CT scans at this facility use at least one of these dose optimization techniques: automated exposure control; mA and/or kV adjustment per patient size (includes targeted exams where dose is matched to clinical indication); or iterative reconstruction. Contrast material: OMIPAQUE 350; Contrast volume: 100 ml; Contrast route: INTRAVENOUS (IV); COMPARISON: CR XR ABDOMEN FLAT PLATE 12/08/2018 10:56 AM FINDINGS: Lungs: Dependent atelectasis is seen at the lung bases. Liver: Mild hepatic steatosis noted. Fatty deposits noted along the peripheral left hepatic lobe. Gallbladder and bile ducts: Small calcified and noncalcified calculi noted within the gallbladder. No evidence of acute cholecystitis. Pancreas: No ductal dilation. No pancreatic lesion seen. Small calcification noted at the head of the pancreas. Spleen: The spleen is unremarkable. No splenomegaly. Adrenal glands: Normal. No mass. Kidneys and ureters: There is mild prominence of the left renal collecting system and there is a 4 mm calculus in the left mid ureter, which may be partially obstructing (image 58, series 6). Simple cysts are noted in the bilateral kidneys measuring up to 1.7 cm on the left and 2.0 cm on the right. There are small bilateral renal hypodensities, which are too small to characterize but may represent cysts. Mild left perinephric stranding noted. Stomach and bowel: No obstruction. No mucosal thickening. Appendix: No evidence of appendicitis. Intraperitoneal space: No free air. No significant fluid collection. Vasculature: No abdominal aortic aneurysm. Lymph nodes: No enlarged lymph nodes. Urinary bladder: Unremarkable as visualized. Reproductive: There has been a hysterectomy. Bones/joints: No acute fracture. There is mild anterolisthesis of L4 on L5 with associated facet arthropathy causing bilateral neural foraminal narrowing. Soft tissues: A small fat-containing umbilical hernia noted. IMPRESSION: 1. 4 mm calculus in the left mid ureter, likely obstructing and causing mild left hydronephrosis. Clinical correlation recommended. 2. No evidence of bowel obstruction or acute bowel inflammation. 3. Cholelithiasis without acute cholecystitis. Dictated and Authenticated by: Cyn Galloway MD. Ordering:ALDA Castaneda MD
--- NOTE | 2022-11-02 18:30 | RT.EKG_ITS ---
APPROVED REPORT Exam: Resting ECG Reason for Exam: elevated troponin Patient Location: E HR:84 bpm ECG Measurements Heart Rate 84 AXIS TX 282 P 228 QRSd 117 QRS -31 QT 420 T 134 QTc 498 Conclusion Sinus or ectopic atrial rhythm...P axis (-45,135) Prolonged TX interval...TX >220, V-rate 50- 90 LVH with IVCD and secondary repol abnrm...multi-criteria, wQRSd, abnr ST-T ST elevation, consider lateral injury...ST >0.10mV, I aVL V5 V6 no major changes from prior ekg
--- NOTE | 2022-11-02 18:49 | NUR.NOTE ---
Nursing Note: Pts O2 goes down into the high 80's when asleep, as soon as she is up and talking she is back into the mid 90's. aware.
--- NOTE | 2022-11-02 19:07 | NUR.NOTE ---
Referral faxed to [facility] to f/u for kidney stoneNursing Note:
== END 2022-11-02 19:14 | disposition home or self-care (01) ==
PROVIDERS: Physician Assistant; Emergency Provider Emergency Medicine; PCP Internal Medicine
DX: N20.0 Calculus of kidney (principal); R31.9 Hematuria, unspecified; R11.0 Nausea; R10.9 Unspecified abdominal pain; E11.9 Type 2 diabetes mellitus without complications; I10 Essential (primary) hypertension; I48.0 Paroxysmal atrial fibrillation
CPT/HCPCS: 36415; 80053; 93005; 96365; 96375; 99285; 74177; 81003; 81015; 83735; 84484; 85025; 93010; 99284; J0131; J1200; J1885; J2405; J2765; J2930; J3490

== ENCOUNTER → 2022-11-04 08:09 | Outpatient (BNVA) | payer MEDICARE, SELFPAY | PROVIDERS: PCP Internal Medicine; Referring Provider Internal Medicine; Visit Provider Nurse Practitioner Gerontology | DX: N20.0 Calculus of kidney (principal) | CPT/HCPCS: 99214 ==

== ENCOUNTER 2022-11-10 00:42 | Inpatient (IN) | payer MEDICARE, SELFPAY ==
[2022-11-10] VITALS (39 sets, daily range): BP systolic 78–145; BP diastolic 38–84; PULSE 55–101; RESP 14–24; TEMP 36.1–37.1; O2SAT 94–100; BMI 26.8
--- NOTE | 2022-11-10 00:30 | RT.EKG_ITS ---
APPROVED REPORT Exam: Resting ECG Reason for Exam: syncope Patient Location: E HR:88 bpm ECG Measurements Heart Rate 88 AXIS OR 241 P 214 QRSd 123 QRS -23 QT 394 T 136 QTc 478 Conclusion Sinus or ectopic atrial rhythm...P axis (-45,135) Prolonged OR interval...OR >220, V-rate 50- 90 Left bundle branch block...QRSd>120, broad/notched R Inferior infarct, acute...ST>0.10mV, T upright, II III aVF Physician: negative for sgarbossa criterion. unchanged from prior ekg
--- NOTE | 2022-11-10 00:45 | DI.RAD_ITS ---
Exam(s) XR PORTABLE CHEST AP EXAM: XR PORTABLE CHEST AP CLINICAL HISTORY: shortness of breath TECHNIQUE: 2D digital imaging was performed of the chest. One image was obtained. An AP view was ob tained. COMPARISON: CR CHEST 2 VIEWS PA,LAT from 01/03/2014 FINDINGS: MEDIASTINUM: Normal. HEART: Cardiomegaly. PULMONARY VASCULATURE: Normal. LUNGS: Clear. PLEURAL SPACE: No pleural effusion or pneumothorax. BONE:Within normal limits for the patient's age. OTHER FINDINGS:There is an external cardiac monitoring device in the midline of the anterior chest. IMPRESSION: No acute pulmonary findings. DATA REPOSITORY: RADIATION DOSE DELIVERED:
--- NOTE | 2022-11-10 01:00 | W.ED.GENAD ---
Discharge Plan Disposition Patient Disposition: Admit to [facility] Condition: Good Discharge Details Chief Complaint: Chest Pain Clinical Impression: Acute GI bleeding, Syncope Primary Care Provider: Bryant Crain ED Provider: Rajinder Banda Home Meds and New Rx's Prescriptions: No Action cholecalciferol (vitamin D3) 25 mcg (1,000 unit) capsule 25 mcg PO DAILY cyanocobalamin (vitamin B-12) 5,000 mcg capsule 1,000 mcg PO DAILY tamsulosin [Flomax] 0.4 mg capsule 0.4 mg PO DAILY Qty: 14 0RF Eliquis 5 MG tablet 5 mg PO BID Qty: 180 3RF metformin 750 mg tablet extended release 24 hr 750 mg PO BID Rx Instructions: take with Metformin 500 mg tab cetirizine [Zyrtec] 10 mg tablet 10 mg PO DAILY Repatha Syringe 140 mg/mL syringe 140 mg subcut Q2W (DME) pen needle, diabetic Needle See Rx Instructions .ROUTE .MEDSUPPLY Qty: 1 Rx Instructions: As directed magnesium oxide 400 mg (241.3 mg magnesium) tablet 400 mg PO DAILY insulin lispro [Humalog KwikPen Insulin] 100 unit/mL insulin pen See Rx Instructions subcut DIRECTED Rx Instructions: per sliding scale subcut as directed; insulin glargine [Lantus U-100 Insulin] 100 unit/mL solution 30 unit SC QHS Patient Comments: says she takes 31U in am - 09/02/21 candesartan 32 MG tablet 32 mg PO DAILY acetaminophen [Tylenol] 325 MG tablet 650 mg PO Q4H PRN PRN (Reason: fever,pain) 0RF gabapentin 100 mg Capsule 300 mg PO BID aspirin [Children's Aspirin] 81 mg Tablet,Chewable 81 mg PO DAILY Qty: 0 0RF Ozempic 2 mg/dose (8 mg/3 mL) pen injector 2 mg SUBCUT QWEEK Patient Comments: Inject 0.25 mg subcutaneously once a week gabapentin 300 mg capsule 600 mg PO HS ondansetron 4 mg tablet,disintegrating 4 mg PO Q8H PRN (Reason: nausea and vomiting) Qty: 30 0RF Patient Comments: pt states not taking Medical Decision Making 72-year-old female with a past medical history of atrial fibrillation on Eliquis, CVA in the past, type 2 diabetes, who was recently placed on baby aspirin on her last admission 2 months ago, who is currently on a zio patch and just has a few days left of monitoring and was placed on this for bradycardia, presents today for syncope. Patient states that she had no significant problems during that period in which she was wearing the Zio patch, however this morning she had an episode of syncope where she was lowered carefully to the ground. She had mild chest pain and shortness of breath at that time. Additionally she had an episode of near syncope this evening, with associated chest pain and chest tightness. EMS was contacted for this episode and she was brought into the ER for further assessment. Currently she admits to a small amount of chest tightness, but otherwise feels fine. She denies any vomiting or diarrhea. She denies a headache. She denies any tearing or ripping sensation in her chest. She has a distant family history of cardiac disease. She denies any recent long trips, surgeries or procedures. She does admit to dark stools that have been present since her last admission 2 months ago. She has not missed any doses of her anticoagulant. No other complaints at this time. No other modifying factors. Exam demonstrates well-appearing female, vital signs stable. Bedside Hemoccult was performed and shows evidence of heme positive stool. Concern for potential cardiac dysrhythmia causing the patient's syncope. EKG shows no evidence of STEMI however she does meet criterion for left bundle branch block. Negative for Sgarbossa's criteria and. We will check hemoglobin levels, evaluate for cardiac abnormality, monitor closely and reassess. Of note on review of her prior ED visits she has had episodes of troponinemia. 1:56 AM Laboratory work-up has returned, patient's hemoglobin has taken a four-point drop in the last 8 days. Hemoglobin is currently 9.9. Additionally patient's BUN is 47, creatinine is 1.2, concerning for a bleed proximal to the ligament of Treitz, likely gastric and potential gastric ulcer. Patient does state that she has been having achiness and irritation in her stomach whenever she has red sauces or tomato-based products. Troponin has returned minimally elevated over 120 which appears to be well within baseline of her normal levels. In fact it is lower than most of her normal levels. proBNP mildly elevated at 1300. Patient was given Protonix and famotidine initially on arrival, now she will be started on a Protonix drip. She will be given 2 g of Carafate as well. I suspect her syncopal episodes are likely related to her low hemoglobin levels. Patient will need EGD and colonoscopy for further assessment. We will hold her aspirin currently and Eliquis. EKG is stable and unchanged. Discussed the case with the hospitalist Dr. Aguillon. He agrees with plan for admission. Patient will be admitted, I will place initial admission orders on his behalf. I have extensively reviewed the treatment plan with the patient. I have addressed all patient concerns at this time. I have also discussed the plan with the admitting physician and they agree with the current assessment and plan and have agreed to assume responsibility for the patient. All parties demonstrate verbal understanding and agreement with our assessment and plan at this time. The documentation in this chart was dictated using [employer] dictation software. Please excuse any dictation errors. HPI General Date/Time Provider Initiated Documentation: 11/10/22 00:52. HPI Narrative: 72-year-old female with a past medical history of atrial fibrillation on Eliquis, CVA in the past, type 2 diabetes, who was recently placed on baby aspirin on her last admission 2 months ago, who is currently on a zio patch and just has a few days left of monitoring and was placed on this for bradycardia, presents today for syncope. Patient states that she had no significant problems during that period in which she was wearing the Zio patch, however this morning she had an episode of syncope where she was lowered carefully to the ground. She had mild chest pain and shortness of breath at that time. Additionally she had an episode of near syncope this evening, with associated chest pain and chest tightness. EMS was contacted for this episode and she was brought into the ER for further assessment. Currently she admits to a small amount of chest tightness, but otherwise feels fine. She denies any vomiting or diarrhea. She denies a headache. She denies any tearing or ripping sensation in her chest. She has a distant family history of cardiac disease. She denies any recent long trips, surgeries or procedures. She does admit to dark stools that have been present since her last admission 2 months ago. She has not missed any doses of her anticoagulant. No other complaints at this time. No other modifying factors. Related Data Home Medications Medication Instructions Recorded Confirmed candesartan 32 mg tablet 32 mg PO DAILY 04/28/17 11/10/22 acetaminophen 325 mg tablet 650 mg PO Q4H PRN PRN fever,pain 04/30/17 11/10/22 (Tylenol) apixaban 5 mg tablet (Eliquis) 5 mg PO BID #180 tabs 09/01/17 11/10/22 cetirizine 10 mg tablet (Zyrtec) 10 mg PO DAILY 10/25/19 11/10/22 metformin 750 mg tablet,extended 750 mg PO BID 10/25/19 11/10/22 release 24 hr evolocumab 140 mg/mL subcutaneous 140 mg subcut Q2W 12/12/20 11/10/22 syringe (Repatha Syringe) magnesium oxide 400 mg (241.3 mg 400 mg PO DAILY 12/12/20 11/10/22 magnesium) tablet pen needle, diabetic ##1 12/12/20 11/10/22 insulin lispro 100 unit/mL See Rx Instructions subcut 08/04/21 11/10/22 subcutaneous pen (Humalog KwikPen DIRECTED (U-100) Insulin) cholecalciferol (vitamin D3) 25 25 mcg PO DAILY 09/02/21 11/10/22 mcg (1,000 unit) capsule cyanocobalamin (vitamin B-12) 1,000 mcg PO DAILY 02/03/22 11/10/22 5,000 mcg capsule insulin glargine 100 unit/mL 30 unit subcut QHS 02/03/22 11/10/22 subcutaneous solution (Lantus U-100 Insulin) gabapentin 100 mg capsule 300 mg PO BID 09/14/22 11/10/22 aspirin 81 mg chewable tablet 81 mg PO DAILY #0 tabs 09/15/22 11/10/22 (Children's Aspirin) gabapentin 300 mg capsule 600 mg PO HS 11/02/22 11/10/22 ondansetron 4 mg disintegrating 4 mg PO Q8H PRN nausea and 11/02/22 11/10/22 tablet vomiting #30 tabs semaglutide 2 mg/dose (8 mg/3 mL) 2 mg subcut QWEEK 11/02/22 11/10/22 subcutaneous pen injector (Ozempic) tamsulosin 0.4 mg capsule (Flomax) 0.4 mg PO DAILY #14 caps 11/04/22 11/10/22 Previous Rx's Medication Instructions Recorded acetaminophen 325 mg tablet 650 mg PO Q4H PRN PRN fever,pain 04/30/17 (Tylenol) apixaban 5 mg tablet (Eliquis) 5 mg PO BID #180 tabs 09/01/17 aspirin 81 mg chewable tablet 81 mg PO DAILY #0 tabs 09/15/22 (Children's Aspirin) ondansetron 4 mg disintegrating 4 mg PO Q8H PRN nausea and 11/02/22 tablet vomiting #30 tabs tamsulosin 0.4 mg capsule (Flomax) 0.4 mg PO DAILY #14 caps 11/04/22 Allergies Allergy/AdvReac Type Severity Reaction Status Date / Time atenolol Allergy Mild Verified 11/02/22 14:12 ezetimibe [From Zetia] Allergy Mild Verified 11/02/22 14:12 hydroxychloroquine Allergy Mild Verified 11/02/22 14:12 [From Plaquenil] lisinopril Allergy Mild Verified 11/02/22 14:12 losartan [From Cozaar] Allergy Mild Verified 11/02/22 14:12 cephalexin Allergy Rash Verified 09/14/22 10:54 ciprofloxacin Allergy Verified 09/14/22 10:54 Svbrkej-ZLH-QoT Reductase Allergy Verified 11/02/22 14:12 Inhibitor [Oquvull-Nth-Dis Reductase Inhibitor] oxycodone HCl [From Percocet] AdvReac CRAZY Verified 11/02/22 14:12 General Stated Complaint: Chest Pain KATHLEEN: 3 Review of Systems All systems reviewed & are unremarkable except as noted in HPI and below PFSH All Active Problems (Updated 11/10/22 @ 02:00 by Rajinder Banda DO) Acute GI bleeding (Acute) Syncope (Chronic) Ventricular tachycardia, non-sustained (Acute) Kidney stone on left side (Acute) Mobitz type 1 second degree AV block (Acute) Sinus pause (Acute) Elevated troponin (Acute) Bradykinesia (Acute) Memory problem (Acute) Cervical radiculopathy (Acute) Sciatica (Acute) Neuropathic pain (Acute) Tremor (Acute) Abnormal movements (Acute) Actinic keratosis (Acute) History of CVA (cerebrovascular accident) (Acute) Pelvic pain in female (Acute) Squamous cell skin cancer (Acute) Granulomatous disorder of the skin and subcutaneous tissue, unspecified (Acute) Mixed stress and urge urinary incontinence (Acute) History of kidney stones (Acute) Recurrent UTI (urinary tract infection) (Acute) Left acute arterial ischemic stroke, MCA (middle cerebral artery) (Acute) Diabetes mellitus type 2, uncontrolled, with complications (Chronic) Hyperlipidemia associated with type 2 diabetes mellitus (Acute) Hypertension associated with diabetes (Chronic) ESE (acute kidney injury) (Acute) Allergic to IV contrast (Acute) Pain in right lower leg (Acute) Medical History Acne rosacea Adequate 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 on anticoagulant therapy Adjustment disorder with mixed anxiety and depressed mood Allergic rhinitis Asthma Atypical chest pain Carcinoma of skin CVA (cerebral vascular accident) Diabetic peripheral neuropathy Diarrhea H/O urinary frequency Hypercalcemia Hyperlipidemia Hyperparathyroidism Hypertension Intermittent asthma Microalbuminuria Myalgia Overflow incontinence Paroxysmal atrial fibrillation Peripheral neuropathy Reactive depression Type 2 diabetes mellitus Urge urinary incontinence Urinary incontinence Weakness of foot Surgical History Abdominal hysterectomy bladder repair,open Hx of colonoscopy Family History Other Diabetes Hyperlipidemia Hypertension Social History Smoking/Tobacco Use Status: Never Smoking risk assessment performed?: Yes Alcohol Intake: never Drug use: Never Substance use type: does not use Household members: spouse Housing: house Number of Children: 3 number of grandchildren: 7 Pets and animals: No Current gender identity: female What is your relationship status?: Panel score (0-1 are the most socially isolated patients): 1 What type of physical activity do you participate in: swimming Seatbelt use: always Do you feel safe at home: Yes Do you feel safe in your relationship?: Yes Exam Narrative Exam Narrative: 1.Const: Well-nourished, Well-developed, appearing stated age 2.Eyes: PERRL, no conjunctival injection, and symmetrical lids. 3.ENT: Atraumatic external nose and ears. Moist MM. Neck: Symmetric, trachea midline, No thyromegaly. 4.CVS: +S1/S2, mild systolic murmur. Peripheral pulses 2+ and equal in all extremities. Brisk capillary refill in all extremities. 5.RESP: Unlabored respiratory effort. Clear to auscultation bilaterally. No wheezes rales or rhonchi 6.GI: Soft, Nontender/Nondistended, No hepatosplenomegaly. No guarding or rebound. Rectal exam demonstrates a small amount of brown stool that is present and Hemoccult positive 7.MSK: Normocephalic/Atraumatic, Extremities w/o deformity or ttp No cyanosis or clubbing, Normal movement of all extremities 8.Skin: Warm, Dry. No rashes or lesions. 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 Sensation grossly intact, no focal neurologic deficits. 10.Psych: (AAO) x3. Appropriate mood and affect Course Vital Signs Vital signs: Vital Signs Temperature 36.5 C 11/10/22 00:43 Pulse 101 H 11/10/22 00:43 Respiratory Rate 20 11/10/22 00:43 Blood Pressure 136/82 11/10/22 00:43 Pulse Oximetry 98 11/10/22 00:43 Temperature 36.5 C 11/10/22 00:43 Temperature Source Temporal Artery Scan 11/10/22 00:43 Pulse 101 H 11/10/22 00:43 Respiratory Rate 15 11/10/22 00:51 Respiratory Effort Normal, Non-Labored, Short of Breath 11/10/22 00:51 Respiratory Depth Normal 11/10/22 00:51 Respiratory Pattern Normal 11/10/22 00:51 Blood Pressure 136/82 11/10/22 00:43 Blood Pressure Position Sitting 11/10/22 00:43 Pulse Oximetry 98 11/10/22 00:43 Oxygen Delivery Method Room Air 11/10/22 00:43 Oxygen Flow Rate 0 11/10/22 00:43 Pain Level 0 11/10/22 00:43 Comment states no pain, but tightness 11/10/22 00:43
[2022-11-10 01:08] LABS: Abs Immature Grans 0.07 10^3/uL (0.0-0.06); Absolute Basophil Count 0.06 10^3/uL (0.0-0.2); Absolute Eosinophil Count 0.14 10^3/uL (0.0-0.7); Absolute Lymphocyte Count 4.42 10^3/uL (1.2-3.4); Absolute Monocyte Count 0.77 10^3/uL (0.1-0.8); Absolute Neutrophil Count 6.95 10^3/uL (1.2-6.7); Basophils % 0.5; Eosinophils % 1.1; HCT 29.2 % (36.0-46.0); HGB 9.9 g/dL (11.2-15.7); Immature Grans % 0.6; Lymphocytes % 35.6; MCH 30.7 pg (27.0-33.0); MCHC 33.9 % (32.0-36.0); MCV 91 fL (80-95); MPV 10.6 fL (8.0-11.0); Monocytes % 6.2; Platelet Count 350 10^3/uL (130-400); RBC 3.22 10^6/uL (3.93-5.22); RDW 13.4 % (11.7-14.6); RDW-SD 44.4 fL; WBC 12.41 10^3/uL (4.4-10.8)
[2022-11-10] MEDS: Pantoprazole 40 MG VIAL IVP ×2 (01:09→16:10)
[2022-11-10] MEDS: Famotidine 20 MG/2 ML VIAL IVP (01:09)
[2022-11-10 01:27] LABS: Prothrombin Time 10.6 sec (9.3-11.0)
[2022-11-10] MEDS: PANTOPRAZOLE 80 MG in Normal Saline 100 ML 10 MG IV (01:33)
[2022-11-10 01:35] LABS: ALT 16 U/L (14-59); AST 14 U/L (15-37); Albumin 3.1 g/dL (3.4-5.0); Alkaline Phosphatase 53 U/L (46-116); Anion Gap 8.6 mmol/L (3-11); BUN 47 mg/dL (7-18); Bilirubin, Total 0.3 mg/dL (0.2-1.0); CO2 24.4 mmol/L (21.0-32.0); CREATININE 1.2 mg/dL (0.55-1.02); Calcium 9.9 mg/dL (8.5-10.1); Chloride 103 mmol/L (98-107); Glucose 353 mg/dL (74-106); Magnesium 1.9 mg/dL (1.8-2.4); NT-proBNP 1349 pg/mL (<300); Potassium 4.3 mmol/L (3.5-5.1); Sodium 136 mmol/L (136-145); Total Protein 6.5 g/dL (6.4-8.2)
[2022-11-10 01:36] LABS: Troponin I 120 ng/L (<or=60)
[2022-11-10] MEDS: Sucralfate 1 GM TAB 2 GM PO (01:37)
--- NOTE | 2022-11-10 02:00 | NUR.NOTE ---
Nursing Note:As per triage note BIBA from home, pt had x2 syncopal episodes today. She stated that she was given a thick drink for a procedure awhile back and had noticed she was having black tarry stools and was not sure if that was normal after taking that medication. Pt denies any iron medication, she is on a blood thinner for a-fib and has a monitor on to follow her heart rate and rhythm. stated tonight she had chest pressure and then felt weak and dizzy and had a witnessed syncope, the caught her before she fell to the floor. Pt able to recall the events. pt lips pale, skin pink and clammy. EMS placed 18g to left ac
--- NOTE | 2022-11-10 03:30 | DI.VRAD_ITS ---
Addendum created by Tomas Jessica MD on 11/10/2022 3:34:56 AM EDT: This case was discussed personally with MESFIN MCLEAN at 3:32 AM EDT on 11/10/2022. By report, the patient has an external cardiac monitoring device attached to the midline of the anterior chest wall. Initial report created on 11/10/2022 3:30:17 AM EDT: PROCEDURE INFORMATION: Exam: XR Chest Exam date and time: 11/10/2022 1:11 AM Age: 72 years old Clinical indication: Shortness of breath; Patient HX: SOB TECHNIQUE: Imaging protocol: Radiologic exam of the chest. Views: 1 view. COMPARISON: CT ABDOMEN PELVIS W 11/02/2022 5:33 PM FINDINGS: Lungs: No pulmonary consolidation. Pleural spaces: No pleural effusion or pneumothorax. Heart/Mediastinum: Enlarged heart. Bones/joints: Visualized bony structures grossly intact, as seen. Soft tissues: 8.4 cm x 3.3 cm foreign body projecting over the midline of the mediastinum. An unusual surgical device or material outside the body could have this appearance; however, clinical correlation is recommended to exclude a swallowed foreign body in the midthoracic esophagus. IMPRESSION: 1. No active disease is seen in the chest. 2. 8.4 cm x 3.3 cm foreign body projecting over the midline of the mediastinum. An unusual surgical device or material outside the body could have this appearance although clinical correlation is recommended to exclude a swallowed foreign body in the midthoracic esophagus. Dictated and Authenticated by: Tomas Jessica MD. Ordering:LYNETTE Calvillo MD
[2022-11-10] MEDS: Insulin Glargine 300 UNITS/3 ML PEN 30 UNITS SC (04:42)
--- NOTE | 2022-11-10 04:42 | W.PM.HP.N ---
Date of service: 11/10/22 Time of Service: 04:42 Assessment and Plan Assessment and plan (1) Acute GI bleeding: Status: Acute Assessment and plan: With new black stools and elevated BUN in the setting of recently adding aspirin to apixaban, I agree that this is almost certainly an upper GI bleed. She has dropped from hemoglobin of 14.1 on 11/02 down 4-5 g/dL, which explains the new syncope. Continue pantoprazole drip Consult surgery. I'm not sure acute EDG indicated, but she may need this if h/h continues to drop. NPO for now in case (2) Syncope: Status: Chronic Assessment and plan: Joanna had another episode just after using the commode while I was writing this, which resoloved in 1-2 minutes after laying her down on the bed. There was no abnormal rhythm on telemetry, pulse and BP stable when she was evaluated (after getting her back down on the bed). This is consistent with vagal events. 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 Will continue to monitor. These episodes are not consistent with new stroke or seizure. (3) Elevated troponin: Status: Acute Assessment and plan: This has been a chronic issue, levels today are not higher than baseline over the past 5 years. She has a cardiology evaluation pending. I would like her to get that stress MPI, though I want to see the hemoglobin stabilize first. (4) History of CVA (cerebrovascular accident): Status: Acute Assessment and plan: Continue her PSK9. Holding apixaban and aspirine. Per neurology notes, her previous CVAs were cardioembolic, so it may make sense to resume apixaban once GI bleed resolves but stay off aspirin chronically. (5) Diabetes mellitus type 2, uncontrolled, with complications: Status: Chronic Assessment and plan: A1c was relatively well controlled 6 weeks ago at 7.5%, though sugars high now. Holding metformin in case she needs contrast and to not upset her stomach. Continue GLP-1, basal insulin, and use moderate sliding scale. (6) Hypertension associated with diabetes: Status: Chronic Assessment and plan: continue her outpatient ARB (7) DVT prophylaxis: Status: Acute Assessment and plan: TEDs/SCDs only given active bleeding (8) Discharge planning issues: Status: Acute Assessment and plan: Joanna is stable on medical floor with telemetry. We need to see hemoglobin stabilize before considering discharge. History of Present Illness History of Present Illness Chief Complaint: chest pressure, fainting Narrative: 72 yo F with history of atrial fibrillation on apixaban, history of CVA involving left MCA, type 2 DM with last Hgb A1c 7.5% in August 2022, chronic mild troponin elevation with associated Mobitz 1 heart block, and recent kidney stone who is presenting after two episodes of chest pressure. She felt normal until the morning prior to admission when she was in the shower after waking at around 7:30am. She started feeling faint and felt a mild pressure in her mid chest. She called her who helped her down as she fainted. She went to see her PCP Dr. Crain at [facility] who did an EKG that looked okay and told her to go to the emergency room if symptoms recurred. Later that evening, she had another episodes of chest pressure and tightness substernal, lasting a couple minutes, associated with shortness of breath, and she went into the emergency room. While in the emergency room she had another episode of feeling faint, though she did not loose consciousness. Of note, she was seen by Neurology for increase of her chronic right leg weakness that was residual from her previous stroke. She was restarted on ASA 81mg at that visit. She was seen 11/02 for flank pain and diagnosed with left sided kidney stone. She was prescribed tamsulosin but she passed the stone 11/07 without ever taking that medication. Since about the time she was here last week, she has noted black stools. She thought is may have been the liquid she was given (contrast?). She has not had epigastric pain or heartburn unless she eats tomato sauce. she has not noted bright red blood per rectum or other bleeding. She is currently undergoing an assessment for her cardiac status given her chronic troponin elevation, and is currently wearing a zio patch. Stress MPI was ordered for today as an outpatient. Review of Systems Constitutional Constitutional: Denies anorexia, Denies chills, Denies fever(s), Denies headache(s), Reports lethargy and Reports weakness (chronic more on left side since strokes, but nothing new) Eyes Eyes: Denies change in vision, Denies irritation and Denies loss of vision ENT Ears, Nose, Mouth, and Throat: Denies change in voice, Denies dysphagia, Denies vertigo, Denies headache(s), Denies hoarseness, Denies nasal congestion, Denies nasal discharge and Denies sore throat Cardiovascular Cardiovascular: Denies leg edema, Denies dyspnea on exertion and Denies orthopnea Respiratory Respiratory: Denies cough, Denies excessive phlegm production, Denies dyspnea on exertion and Denies wheezing Gastrointestinal Gastrointestinal: Reports as per HPI, Denies abdominal pain, Reports constipation (had to use enema this week, which is worse than usual), Denies dysphagia, Denies diarrhea and Denies vomiting Genitourinary Genitourinary: Denies hematuria, Denies dysuria (not since stone passed) and Denies urinary incontinence Musculoskeletal Musculoskeletal: Denies arthralgias Integumentary/Breasts Skin/Breast: Denies rash and Denies skin ulcer Neurologic Neurologic: Denies abnormal speech, Denies confusion, Denies vertigo, Denies headache(s), Denies loss of vision, Reports memory loss (chronic poor memory since stroke), Denies convulsions, Denies sensory deficit and Reports weakness (chronic more on left side since strokes, but nothing new) Psychiatric Psychiatric: Denies confusion, Reports memory loss (chronic poor memory since stroke) and Denies mood swings Hematologic/Lymphatic Hematologic/Lymphatic: Denies easy bleeding Allergic/Immunologic Allergic/Immunologic: Denies wheezing PFSH All Active Problems (Updated 11/10/22 @ 06:12 by Zac Villegas) Discharge planning issues (Acute) DVT prophylaxis (Acute) Acute GI bleeding (Acute) Syncope (Chronic) Ventricular tachycardia, non-sustained (Acute) Kidney stone on left side (Acute) Mobitz type 1 second degree AV block (Acute) Sinus pause (Acute) Elevated troponin (Acute) Bradykinesia (Acute) Memory problem (Acute) Cervical radiculopathy (Acute) Sciatica (Acute) Neuropathic pain (Acute) Tremor (Acute) Abnormal movements (Acute) Actinic keratosis (Acute) History of CVA (cerebrovascular accident) (Acute) Pelvic pain in female (Acute) Squamous cell skin cancer (Acute) Granulomatous disorder of the skin and subcutaneous tissue, unspecified (Acute) Mixed stress and urge urinary incontinence (Acute) History of kidney stones (Acute) Recurrent UTI (urinary tract infection) (Acute) Left acute arterial ischemic stroke, MCA (middle cerebral artery) (Acute) Diabetes mellitus type 2, uncontrolled, with complications (Chronic) Hyperlipidemia associated with type 2 diabetes mellitus (Acute) Hypertension associated with diabetes (Chronic) ESE (acute kidney injury) (Acute) Allergic to IV contrast (Acute) Pain in right lower leg (Acute) Medical History Acne rosacea Adequate 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 on anticoagulant therapy Adjustment disorder with mixed anxiety and depressed mood Allergic rhinitis Asthma Atypical chest pain Carcinoma of skin CVA (cerebral vascular accident) Diabetic peripheral neuropathy Diarrhea H/O urinary frequency Hypercalcemia Hyperlipidemia Hyperparathyroidism Hypertension Intermittent asthma Microalbuminuria Myalgia Overflow incontinence Paroxysmal atrial fibrillation Peripheral neuropathy Reactive depression Type 2 diabetes mellitus Urge urinary incontinence Urinary incontinence Weakness of foot Surgical History Abdominal hysterectomy bladder repair,open Hx of colonoscopy Family History Other Diabetes Hyperlipidemia Hypertension Social History (Updated 11/10/22 @ 05:57 by Zac Villegas) Smoking/Tobacco Use Status: Never Smoking risk assessment performed?: Yes Alcohol Intake: never Drug use: Never Substance use type: does not use Household members: spouse Housing: house Number of Children: 3 number of grandchildren: 7 Pets and animals: No Current gender identity: female What is your relationship status?: Panel score (0-1 are the most socially isolated patients): 1 What type of physical activity do you participate in: swimming Seatbelt use: always Do you feel safe at home: Yes Do you feel safe in your relationship?: Yes Additional Social history: Lives in [place] with her . Grew up in [place]. Meds Allergies and Home Medications Allergies Allergy/AdvReac Type Severity Reaction Status Date / Time atenolol Allergy Mild Verified 11/02/22 14:12 ezetimibe [From Zetia] Allergy Mild Verified 11/02/22 14:12 hydroxychloroquine Allergy Mild Verified 11/02/22 14:12 [From Plaquenil] lisinopril Allergy Mild Verified 11/02/22 14:12 losartan [From Cozaar] Allergy Mild Verified 11/02/22 14:12 cephalexin Allergy Rash Verified 09/14/22 10:54 ciprofloxacin Allergy Verified 09/14/22 10:54 Dxgsvqy-OAU-RqA Reductase Allergy Verified 11/02/22 14:12 Inhibitor [Ueoxusb-Xek-Gph Reductase Inhibitor] oxycodone HCl [From Percocet] AdvReac VAZQUEZZY Verified 11/02/22 14:12 Home Medications Medication Instructions Recorded Confirmed Type candesartan 32 mg tablet 32 mg PO DAILY 04/28/17 11/10/22 History acetaminophen 325 mg tablet 650 mg PO Q4H PRN PRN fever,pain 04/30/17 11/10/22 Rx (Tylenol) apixaban 5 mg tablet (Eliquis) 5 mg PO BID #180 tabs 09/01/17 11/10/22 Rx cetirizine 10 mg tablet (Zyrtec) 10 mg PO DAILY 10/25/19 11/10/22 History metformin 750 mg tablet,extended 750 mg PO BID 10/25/19 11/10/22 History release 24 hr evolocumab 140 mg/mL subcutaneous 140 mg subcut Q2W 12/12/20 11/10/22 History syringe (Repatha Syringe) magnesium oxide 400 mg (241.3 mg 400 mg PO DAILY 12/12/20 11/10/22 History magnesium) tablet pen needle, diabetic ##1 12/12/20 11/10/22 History insulin lispro 100 unit/mL See Rx Instructions subcut 08/04/21 11/10/22 History subcutaneous pen (Humalog KwikPen DIRECTED (U-100) Insulin) cholecalciferol (vitamin D3) 25 25 mcg PO DAILY 09/02/21 11/10/22 History mcg (1,000 unit) capsule cyanocobalamin (vitamin B-12) 1,000 mcg PO DAILY 02/03/22 11/10/22 History 5,000 mcg capsule insulin glargine 100 unit/mL 30 unit subcut QHS 02/03/22 11/10/22 History subcutaneous solution (Lantus U-100 Insulin) gabapentin 100 mg capsule 300 mg PO BID 09/14/22 11/10/22 History aspirin 81 mg chewable tablet 81 mg PO DAILY #0 tabs 09/15/22 11/10/22 Rx (Children's Aspirin) gabapentin 300 mg capsule 600 mg PO HS 11/02/22 11/10/22 History ondansetron 4 mg disintegrating 4 mg PO Q8H PRN nausea and 11/02/22 11/10/22 Rx tablet vomiting #30 tabs semaglutide 2 mg/dose (8 mg/3 mL) 2 mg subcut QWEEK 11/02/22 11/10/22 History subcutaneous pen injector (Ozempic) tamsulosin 0.4 mg capsule (Flomax) 0.4 mg PO DAILY #14 caps 11/04/22 11/10/22 Rx Exam Narrative Exam Narrative: GEN: Alert and oriented, pleasant and cooperative, gives linear history. No acute distress at rest. HEENT: Head atraumatic. Conjunctiva clear, no icterus. PEERL, EOMI. no rhinorrhea. MMM, OP benign. Neck is supple with no masses or lymphadenopathy, trachea midline LUNGS: CTAB with normal effort CV: RRR with some skipped beats, 1-2/6 systolic murmur at RUSB, no radiation. no gallops or rubs. ABD: +BS, soft, NT/ND EXT: no cyanosis, clubbing, or edema MSK: No joint redness or swelling NEURO: CN 2-12 grossly intact. Normal movement of 4 extremities, though slightly weaker on the left distal extremities. Normal speech and coordination SKIN: No rashes or open wounds. PSYCH: normal mood and affect Results Imaging EKG: report reviewed (Sinus, long AZ, LBBB but negative sgarbossa criteria, no change from previous) Labs 11/10/22 04:40 11/10/22 00:55 Labs: Laboratory Results - last 24 hr 11/10/22 11/10/22 11/10/22 00:55 00:55 00:55 WBC 12.41 H RBC 3.22 L Hgb 9.9 L Hct 29.2 L MCV 91 MCH 30.7 MCHC 33.9 RDW 13.4 Plt Count 350 MPV 10.6 Immature Gran % 0.6 Neutrophils % 56.0 Lymphocytes % 35.6 Monocytes % 6.2 Eosinophils % 1.1 Basophils % 0.5 Nucleated RBC % 0.0 Absolute Neutrophils 6.95 H Absolute Lymphocytes 4.42 H Absolute Monocytes 0.77 Absolute Eosinophils 0.14 Absolute Basophils 0.06 PT 10.6 INR 1.0 APTT 21.0 L Sodium 136 Potassium 4.3 Chloride 103 Carbon Dioxide 24.4 Anion Gap 8.6 BUN 47 H Creatinine 1.2 H Est GFR (CKD-EPI 2020) 48.70 Glucose 353 H Calcium 9.9 Magnesium 1.9 Total Bilirubin 0.3 AST 14 L ALT 16 Alkaline Phosphatase 53 Troponin I 120 H* NT-Pro-B Natriuret Pep 1349 H Total Protein 6.5 Albumin 3.1 L Patient ABO/Rh Antibody Screen 11/10/22 00:55 WBC RBC Hgb Hct MCV MCH MCHC RDW Plt Count MPV Immature Gran % Neutrophils % Lymphocytes % Monocytes % Eosinophils % Basophils % Nucleated RBC % Absolute Neutrophils Absolute Lymphocytes Absolute Monocytes Absolute Eosinophils Absolute Basophils PT INR APTT Sodium Potassium Chloride Carbon Dioxide Anion Gap BUN Creatinine Est GFR (CKD-EPI 2020) Glucose Calcium Magnesium Total Bilirubin AST ALT Alkaline Phosphatase Troponin I NT-Pro-B Natriuret Pep Total Protein Albumin Patient ABO/Rh A Negative Antibody Screen NEGATIVE Last Vital Signs Temp 36.9 C 11/10/22 03:24 Pulse 72 11/10/22 03:24 Resp 18 11/10/22 03:24 BP 145/72 H 11/10/22 03:24 Pulse Ox 100 11/10/22 03:24 Time Spent Time spent with Patient: >75 minutes Time was spent: preparing to see the patient(eg.review tests), obtaining and/or reviewing separately otained hiistory, ordering medications,tests, procedures, referring, communicating with other health rn urgent care, indepentently interpreting results and counseling the patient
[2022-11-10 04:44] LABS: HCT 26.3 % (36.0-46.0); HGB 8.9 g/dL (11.2-15.7)
[2022-11-10] MEDS: POTASSIUM CHLORIDE/0.45% NACL 1,000 ML 100 MEQ IV ×2 (04:44→19:38)
[2022-11-10 05:05] LABS: Troponin I 105 ng/L (<or=60)
[2022-11-10] MEDS: Insulin Aspart 300 UNITS/3 ML PEN SC ×4 (06:48→17:59)
--- NOTE | 2022-11-10 07:46 | NUR.NOTE ---
Patient rang and reported that she wanted to use the bathroom to have a bowel movement. She was assisted by this Nurse to the toilet when she reported that she had an accident. while sitting on the toilet, patient reported that she is starting to feel dizzy. Patient then noted have decreased responsiveness. This nurse called for assistance patient was placed into the bed and vitals were done at this time. MD was informed and came to assess patient. Patient vitals were done and charted.
[2022-11-10] MEDS: Cyanocobalamin 500 MCG TAB 1000 MCG PO (08:18)
[2022-11-10] MEDS: Gabapentin 300 MG CAP PO ×2 (08:18→16:09)
[2022-11-10] MEDS: Magnesium Oxide 400 MG TAB PO (08:18)
[2022-11-10] MEDS: Cetirizine 10 MG TAB PO (08:18)
[2022-11-10] MEDS: Sucralfate 1 GM TAB PO ×4 (08:45→23:21)
--- NOTE | 2022-11-10 10:10 | INITIAL_ITS ---
Date of service: 11/10/22 Time of Service: 10:10 Care Management Initial Assmt Initial Assessment REASON FOR HOSPITALIZATION:: acute GI Bleed PREVIOUS FUNCTIONAL STATUS/SOCIAL/FAMILY SUPPORTS:: Joanna lives in a single family home in [place] with her Lefty. They have 3 children; two live in [place] and one lives in [place], [place]. Joanna is independent at baseline and does not receive any community services. CURRENT FUNCTIONAL STATUS:: Joanna was lying in bed visiting with her when CM met with her. She was pleasant and engaged well with CM. Joanna shared that she has been passing out recently and her PCP advised her to come to the hospital. This morning she had a syncopal episode when she went to sit up. Her blood pressure has been low with systolic measurements in the 70s to 90s and her H&H has been dropping. Her Hgb was 14.1 on admission and is down to 7.5. Joanna was recently started on ASA and was already on Apixaban. It is felt that she is likely having an upper GI bleed and may have an EGD tomorrow. ADVANCE DIRECTIVES:: On file. Justin DONALD Has patient been provided with info about the portal/API?: Yes Did the patient sign up for the portal?: Yes CODE STATUS:: Full Code INSURANCE COVERAGE / FINANCIAL ISSUES:: [facility] Medicare Replacement CURRENT HOME/COMMUNITY SERVICES/EQUIPMENT:: has a cane and a walker but does not use PRIMARY CARE PHYSICIAN:: Bryant Crain POTENTIAL DISCHARGE NEEDS:: follow up with PCP and plan of care PATIENT/FAMILY EDUCATION NEEDS:: Review of discharge instructions, activity, follow up plan, limitations, diet, medications, discuss Ask Me Three TRANSPORTATION:: via private vehicle with family PLAN:: Anticipate Joanna will be discharged home with no new services. She will follow up with her community providers and plan of care and transport with family. CM will follow and support discharge planning needs. PFSH All Active Problems Discharge planning issues (Acute) DVT prophylaxis (Acute) Acute GI bleeding (Acute) Syncope (Chronic) Ventricular tachycardia, non-sustained (Acute) Kidney stone on left side (Acute) Mobitz type 1 second degree AV block (Acute) Sinus pause (Acute) Elevated troponin (Acute) Bradykinesia (Acute) Memory problem (Acute) Cervical radiculopathy (Acute) Sciatica (Acute) Neuropathic pain (Acute) Tremor (Acute) Abnormal movements (Acute) Actinic keratosis (Acute) History of CVA (cerebrovascular accident) (Acute) Pelvic pain in female (Acute) Squamous cell skin cancer (Acute) Granulomatous disorder of the skin and subcutaneous tissue, unspecified (Acute) Mixed stress and urge urinary incontinence (Acute) History of kidney stones (Acute) Recurrent UTI (urinary tract infection) (Acute) Left acute arterial ischemic stroke, MCA (middle cerebral artery) (Acute) Diabetes mellitus type 2, uncontrolled, with complications (Chronic) Hyperlipidemia associated with type 2 diabetes mellitus (Acute) Hypertension associated with diabetes (Chronic) ESE (acute kidney injury) (Acute) Allergic to IV contrast (Acute) Pain in right lower leg (Acute) Medical History Acne rosacea Adequate 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 on anticoagulant therapy Adjustment disorder with mixed anxiety and depressed mood Allergic rhinitis Asthma Atypical chest pain Carcinoma of skin CVA (cerebral vascular accident) Diabetic peripheral neuropathy Diarrhea H/O urinary frequency Hypercalcemia Hyperlipidemia Hyperparathyroidism Hypertension Intermittent asthma Microalbuminuria Myalgia Overflow incontinence Paroxysmal atrial fibrillation Peripheral neuropathy Reactive depression Type 2 diabetes mellitus Urge urinary incontinence Urinary incontinence Weakness of foot Surgical History Abdominal hysterectomy bladder repair,open Hx of colonoscopy Family History Other Diabetes Hyperlipidemia Hypertension Social History Smoking/Tobacco Use Status: Never Smoking risk assessment performed?: Yes Alcohol Intake: never Drug use: Never Substance use type: does not use Household members: spouse Housing: house Number of Children: 3 number of grandchildren: 7 Pets and animals: No Current gender identity: female What is your relationship status?: Panel score (0-1 are the most socially isolated patients): 1 What type of physical activity do you participate in: swimming Seatbelt use: always Do you feel safe at home: Yes Do you feel safe in your relationship?: Yes Additional Social history: Lives in [place] with her . Grew up in [place].
[2022-11-10] MEDS: Normal Saline 500 ML 250 ML IV (10:12)
[2022-11-10 10:51] LABS: HCT 22.7 % (36.0-46.0); HGB 7.5 g/dL (11.2-15.7)
--- NOTE | 2022-11-10 11:53 | CCONE_ITS ---
Date of service: 11/10/22 Time of Service: 08:30 Assessment and Plan Assessment and plan (1) Acute GI bleeding: Status: Acute Assessment and plan: Patient has acute anemia. It is reasonable to hold her Eliquis and aspirin at least until active bleeding has been excluded. This was discussed with Dr. Robles (2) Mobitz type 1 second degree AV block: Status: Acute Assessment and plan: Patient has significant conduction system disease. For the most part her monitoring has shown Mobitz 1 second-degree AV block though with 2-1 AV block and pauses higher grade disease cannot be excluded. I still suspect that she will eventually require a pacemaker (3) Syncope: Status: Chronic Assessment and plan: Patient has multiple reasons for syncope, including GI blood loss/anemia, condu ction disease (4) Elevated troponin: Status: Acute Assessment and plan: Troponin is chronically mildly elevated. At some point she should have a repeat MPI but since she has no specific symptoms this is not urgent History of Present Illness History of Present Illness Chief Complaint: Weakness and syncope Narrative: This is a 72-year-old woman who has a history of conduction system disease as well as paroxysmal atrial fibrillation, stroke, kidney stones and acute presentation with weakness syncope and evidence of GI bleeding. I made the patient's acquaintance about a month ago. She had been admitted to the hospital with suspected recurrent stroke. She was noted to have evidence of Mobitz 1 second-degree AV block and had a Holter monitor performed which did not show much of concern. She was noted to have a mildly elevated troponin without symptoms concerning for angina, no EKG changes. She subsequently has been undergoing continuous cardiac event monitoring which is notable for frequent documentation of Mobitz 1 second-degree AV block, periods of 2-1 AV block, brief episodes of nonsustained ventricular tachycardia. It was suspected previously that she would likely require pacemaker implantation but additional monitoring was undertaken for better documentation A routine repeat myocardial perfusion imaging study was done because of the elev ated troponin. It was scheduled for today, currently on hold. She had previous myocardial perfusion imaging done in 2019 which showed no evidence of myocardial ischemia Because of prior stroke and paroxysmal atrial fibrillation she has been anticoagulated chronically with Eliquis. It seems recently baby aspirin was added to her regimen She was recently in the emergency room with a kidney stone Review of Systems Constitutional Constitutional: Reports frequent falls and Reports weakness Cardiovascular Cardiovascular: Reports as per HPI, Denies chest pain, Reports syncope, Denies irregular heart rhythm, Reports lightheadedness and Denies dyspnea Respiratory Respiratory: Denies dyspnea Neurologic Neurologic: Reports syncope, Reports frequent falls and Reports weakness PFSH All Active Problems (Updated 11/10/22 @ 06:12 by Zac Villegas) Discharge planning issues (Acute) DVT prophylaxis (Acute) Acute GI bleeding (Acute) Syncope (Chronic) Ventricular tachycardia, non-sustained (Acute) Kidney stone on left side (Acute) Mobitz type 1 second degree AV block (Acute) Sinus pause (Acute) Elevated troponin (Acute) Bradykinesia (Acute) Memory problem (Acute) Cervical radiculopathy (Acute) Sciatica (Acute) Neuropathic pain (Acute) Tremor (Acute) Abnormal movements (Acute) Actinic keratosis (Acute) History of CVA (cerebrovascular accident) (Acute) Pelvic pain in female (Acute) Squamous cell skin cancer (Acute) Granulomatous disorder of the skin and subcutaneous tissue, unspecified (Acute) Mixed stress and urge urinary incontinence (Acute) History of kidney stones (Acute) Recurrent UTI (urinary tract infection) (Acute) Left acute arterial ischemic stroke, MCA (middle cerebral artery) (Acute) Diabetes mellitus type 2, uncontrolled, with complications (Chronic) Hyperlipidemia associated with type 2 diabetes mellitus (Acute) Hypertension associated with diabetes (Chronic) ESE (acute kidney injury) (Acute) Allergic to IV contrast (Acute) Pain in right lower leg (Acute) Medical History Acne rosacea Adequate 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 on anticoagulant therapy Adjustment disorder with mixed anxiety and depressed mood Allergic rhinitis Asthma Atypical chest pain Carcinoma of skin CVA (cerebral vascular accident) Diabetic peripheral neuropathy Diarrhea H/O urinary frequency Hypercalcemia Hyperlipidemia Hyperparathyroidism Hypertension Intermittent asthma Microalbuminuria Myalgia Overflow incontinence Paroxysmal atrial fibrillation Peripheral neuropathy Reactive depression Type 2 diabetes mellitus Urge urinary incontinence Urinary incontinence Weakness of foot Surgical History Abdominal hysterectomy bladder repair,open Hx of colonoscopy Family History Other Diabetes Hyperlipidemia Hypertension Social History (Updated 11/10/22 @ 05:57 by Zac Villegas) Smoking/Tobacco Use Status: Never Smoking risk assessment performed?: Yes Alcohol Intake: never Drug use: Never Substance use type: does not use Household members: spouse Housing: house Number of Children: 3 number of grandchildren: 7 Pets and animals: No Current gender identity: female What is your relationship status?: Panel score (0-1 are the most socially isolated patients): 1 What type of physical activity do you participate in: swimming Seatbelt use: always Do you feel safe at home: Yes Do you feel safe in your relationship?: Yes Additional Social history: Lives in [place] with her . Grew up in [place]. Exam Const Other: Overweight looks stated age no acute distress Neck Other: Unable to assess JVP carotid pulsations are grossly normal no bruits Resp Other: Lungs are clear Cardio Other: Heart is regular no murmur or gallop Extrem Other: Trace edema Results Last Vital Signs Temp 36.1 C L 11/10/22 09:49 Pulse 77 11/10/22 10:25 Resp 20 11/10/22 09:49 BP 113/70 11/10/22 10:25 Pulse Ox 98 11/10/22 09:49 Labs 11/10/22 10:45 11/10/22 00:55 Labs: Laboratory Results - last 24 hr 11/10/22 11/10/22 11/10/22 00:55 00:55 00:55 WBC 12.41 H RBC 3.22 L Hgb 9.9 L Hct 29.2 L MCV 91 MCH 30.7 MCHC 33.9 RDW 13.4 Plt Count 350 MPV 10.6 Immature Gran % 0.6 Neutrophils % 56.0 Lymphocytes % 35.6 Monocytes % 6.2 Eosinophils % 1.1 Basophils % 0.5 Nucleated RBC % 0.0 Absolute Neutrophils 6.95 H Absolute Lymphocytes 4.42 H Absolute Monocytes 0.77 Absolute Eosinophils 0.14 Absolute Basophils 0.06 PT 10.6 INR 1.0 APTT 21.0 L Sodium 136 Potassium 4.3 Chloride 103 Carbon Dioxide 24.4 Anion Gap 8.6 BUN 47 H Creatinine 1.2 H Est GFR (CKD-EPI 2020) 48.70 Glucose 353 H Calcium 9.9 Magnesium 1.9 Total Bilirubin 0.3 AST 14 L ALT 16 Alkaline Phosphatase 53 Troponin I 120 H* NT-Pro-B Natriuret Pep 1349 H Total Protein 6.5 Albumin 3.1 L Patient ABO/Rh Antibody Screen 11/10/22 11/10/22 11/10/22 00:55 04:40 04:40 WBC RBC Hgb 8.9 L Hct 26.3 L MCV MCH MCHC RDW Plt Count MPV Immature Gran % Neutrophils % Lymphocytes % Monocytes % Eosinophils % Basophils % Nucleated RBC % Absolute Neutrophils Absolute Lymphocytes Absolute Monocytes Absolute Eosinophils Absolute Basophils PT INR APTT Sodium Potassium Chloride Carbon Dioxide Anion Gap BUN Creatinine Est GFR (CKD-EPI 2020) Glucose Calcium Magnesium Total Bilirubin AST ALT Alkaline Phosphatase Troponin I 105 H* NT-Pro-B Natriuret Pep Total Protein Albumin Patient ABO/Rh A Negative Antibody Screen NEGATIVE 11/10/22 11/10/22 10:45 12:00 WBC RBC Hgb 7.5 L Cancelled Hct 22.7 L Cancelled MCV MCH MCHC RDW Plt Count MPV Immature Gran % Neutrophils % Lymphocytes % Monocytes % Eosinophils % Basophils % Nucleated RBC % Absolute Neutrophils Absolute Lymphocytes Absolute Monocytes Absolute Eosinophils Absolute Basophils PT INR APTT Sodium Potassium Chloride Carbon Dioxide Anion Gap BUN Creatinine Est GFR (CKD-EPI 2020) Glucose Calcium Magnesium Total Bilirubin AST ALT Alkaline Phosphatase Troponin I NT-Pro-B Natriuret Pep Total Protein Albumin Patient ABO/Rh Antibody Screen
--- NOTE | 2022-11-10 13:22 | NUR.NOTE ---
Nursing Note: 0949: sat pt up to use bedside commode, stated she was feeling very hot and dizzy. Pt became unresponsive/pale. Positioned pt in reverse trendelenburg, obtained vitals & blood sugar. BP 113/75 no change in HR/tele. Charge nurse/MD aware 1010: pt now feeling better, color returning to face, no longer dizzy. BP 108/73. 1015: pt resting in bed, starting to c/o of feeling hot & dizzy again, becoming pale. BP 88/56, HR 55. Orders for 500cc NS bolus. Charge nurse/MD aware. Pt now resting comfortably, BP 128/63. Instructed to not get OOB without assistance & to use bedpan, for now, to void. Will continue to monitor and adjust interventions as necessary
--- NOTE | 2022-11-10 13:24 | W.SURGCON ---
Date of service: 11/10/22 Time of Service: 13:25 Assessment and Plan Assessment and plan (1) Acute GI bleeding: Status: Acute Assessment and plan: appears to be lower pt does require blood. will transfuse cont PPI/carafate plan egd today Informed consent is obtained for the procedural (explained in simple layman's terms that the pt. and/or family could understand) explaining risks vs benefits and alternatives to the procedure and consequences if we do not do the procedure and need/rational for the procedure. Risks include but are not limited to: bleeding, infection, perforation of esophagus, stomach, colon, small intestines, bronchus or trachea, or PTX. This would necessitate emergency surgery to repair the damage w/ possible ostomy; and other associated complications w/ the required surgery. Also complications of anesthesia including aspiration, TX/CVA/. (2) Ventricular tachycardia, non-sustained: Status: Acute (3) Kidney stone on left side: Status: Acute (4) Mobitz type 1 second degree AV block: Status: Acute (5) History of CVA (cerebrovascular accident): Status: Acute (6) Granulomatous disorder of the skin and subcutaneous tissue, unspecified: Status: Acute (7) Mixed stress and urge urinary incontinence: Status: Acute (8) History of kidney stones: Status: Acute (9) Left acute arterial ischemic stroke, MCA (middle cerebral artery): Status: Acute (10) Diabetes mellitus type 2, uncontrolled, with complications: Status: Chronic (11) Hyperlipidemia associated with type 2 diabetes mellitus: Status: Acute (12) Hypertension associated with diabetes: Status: Chronic (13) Allergic to IV contrast: Status: Acute (14) Adequate 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 on anticoagulant therapy: (15) Acne rosacea: (16) CVA (cerebral vascular accident): (17) Diabetic peripheral neuropathy: (18) Hyperlipidemia: (19) Hyperparathyroidism: (20) Hypertension: (21) Intermittent asthma: (22) Paroxysmal atrial fibrillation: (23) Peripheral neuropathy: (24) Type 2 diabetes mellitus: History of Present Illness Narrative: Pt came in last pm w/ chest pain and SOB. Hgb was found to be 8.5. She has been having black stools. She also passed a kidney stone. Currently she denies any abdominal pain. IF she gets up to walk she gets week and dizzy. She has a hx of stroke and A fib. She is on ASA and ellequis. She denies a Hx of PUD/gastritis. She has no abdominal pain currently. She is hungry. She is having black tarry stools. Review of Systems All systems reviewed & are unremarkable except as noted in HPI and below PFSH All Active Problems Discharge planning issues (Acute) DVT prophylaxis (Acute) Acute GI bleeding (Acute) Syncope (Chronic) Ventricular tachycardia, non-sustained (Acute) Kidney stone on left side (Acute) Mobitz type 1 second degree AV block (Acute) Sinus pause (Acute) Elevated troponin (Acute) Bradykinesia (Acute) Memory problem (Acute) Cervical radiculopathy (Acute) Sciatica (Acute) Neuropathic pain (Acute) Tremor (Acute) Abnormal movements (Acute) Actinic keratosis (Acute) History of CVA (cerebrovascular accident) (Acute) Pelvic pain in female (Acute) Squamous cell skin cancer (Acute) Granulomatous disorder of the skin and subcutaneous tissue, unspecified (Acute) Mixed stress and urge urinary incontinence (Acute) History of kidney stones (Acute) Recurrent UTI (urinary tract infection) (Acute) Left acute arterial ischemic stroke, MCA (middle cerebral artery) (Acute) Diabetes mellitus type 2, uncontrolled, with complications (Chronic) Hyperlipidemia associated with type 2 diabetes mellitus (Acute) Hypertension associated with diabetes (Chronic) ESE (acute kidney injury) (Acute) Allergic to IV contrast (Acute) Pain in right lower leg (Acute) Medical History Acne rosacea Adequate 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 on anticoagulant therapy Adjustment disorder with mixed anxiety and depressed mood Allergic rhinitis Asthma Atypical chest pain Carcinoma of skin CVA (cerebral vascular accident) Diabetic peripheral neuropathy Diarrhea H/O urinary frequency Hypercalcemia Hyperlipidemia Hyperparathyroidism Hypertension Intermittent asthma Microalbuminuria Myalgia Overflow incontinence Paroxysmal atrial fibrillation Peripheral neuropathy Reactive depression Type 2 diabetes mellitus Urge urinary incontinence Urinary incontinence Weakness of foot Surgical History Abdominal hysterectomy bladder repair,open Hx of colonoscopy Family History Other Diabetes Hyperlipidemia Hypertension Social History Smoking/Tobacco Use Status: Never Smoking risk assessment performed?: Yes Alcohol Intake: never Drug use: Never Substance use type: does not use Household members: spouse Housing: house Number of Children: 3 number of grandchildren: 7 Pets and animals: No Current gender identity: female What is your relationship status?: Panel score (0-1 are the most socially isolated patients): 1 What type of physical activity do you participate in: swimming Seatbelt use: always Do you feel safe at home: Yes Do you feel safe in your relationship?: Yes Additional Social history: Lives in [place] with her . Grew up in [facility]. Exam Narrative Exam Narrative: PHYSICAL EXAM GENERAL APPEARANCE: Alert, healthy appearance, oriented, x 3,? in no acute distress HYDRATION: Well hydrated HEAD, EYES, EARS, NECK, THROAT: Head is normocephalic, pupils equal, round, reactive to light and accommodation, ocular movement intact, sclera clear and no jaundice. ?Dentition intact. LUNGS: normal respiration/normal chest excursion. ?Clear to auscultation bilaterally. ?No wheeze. ?HEART: Regular rate and rhythm. no murmurs ABDOMEN: soft and non-tender to palpation.? Normal bowel sounds.? Results Last Vital Signs Temp 36.4 C 11/10/22 12:00 Pulse 91 H 11/10/22 12:00 Resp 20 11/10/22 12:00 BP 128/63 11/10/22 12:00 Pulse Ox 98 11/10/22 12:00 Labs 11/10/22 10:45 11/10/22 00:55 Labs: Laboratory Results - last 24 hr 11/10/22 11/10/22 11/10/22 00:55 00:55 00:55 WBC 12.41 H RBC 3.22 L Hgb 9.9 L Hct 29.2 L MCV 91 MCH 30.7 MCHC 33.9 RDW 13.4 Plt Count 350 MPV 10.6 Immature Gran % 0.6 Neutrophils % 56.0 Lymphocytes % 35.6 Monocytes % 6.2 Eosinophils % 1.1 Basophils % 0.5 Nucleated RBC % 0.0 Absolute Neutrophils 6.95 H Absolute Lymphocytes 4.42 H Absolute Monocytes 0.77 Absolute Eosinophils 0.14 Absolute Basophils 0.06 PT 10.6 INR 1.0 APTT 21.0 L Sodium 136 Potassium 4.3 Chloride 103 Carbon Dioxide 24.4 Anion Gap 8.6 BUN 47 H Creatinine 1.2 H Est GFR (CKD-EPI 2020) 48.70 Glucose 353 H Calcium 9.9 Magnesium 1.9 Total Bilirubin 0.3 AST 14 L ALT 16 Alkaline Phosphatase 53 Troponin I 120 H* NT-Pro-B Natriuret Pep 1349 H Total Protein 6.5 Albumin 3.1 L Patient ABO/Rh Antibody Screen 11/10/22 11/10/22 11/10/22 00:55 04:40 04:40 WBC RBC Hgb 8.9 L Hct 26.3 L MCV MCH MCHC RDW Plt Count MPV Immature Gran % Neutrophils % Lymphocytes % Monocytes % Eosinophils % Basophils % Nucleated RBC % Absolute Neutrophils Absolute Lymphocytes Absolute Monocytes Absolute Eosinophils Absolute Basophils PT INR APTT Sodium Potassium Chloride Carbon Dioxide Anion Gap BUN Creatinine Est GFR (CKD-EPI 2020) Glucose Calcium Magnesium Total Bilirubin AST ALT Alkaline Phosphatase Troponin I 105 H* NT-Pro-B Natriuret Pep Total Protein Albumin Patient ABO/Rh A Negative Antibody Screen NEGATIVE 11/10/22 11/10/22 10:45 12:00 WBC RBC Hgb 7.5 L Cancelled Hct 22.7 L Cancelled MCV MCH MCHC RDW Plt Count MPV Immature Gran % Neutrophils % Lymphocytes % Monocytes % Eosinophils % Basophils % Nucleated RBC % Absolute Neutrophils Absolute Lymphocytes Absolute Monocytes Absolute Eosinophils Absolute Basophils PT INR APTT Sodium Potassium Chloride Carbon Dioxide Anion Gap BUN Creatinine Est GFR (CKD-EPI 2020) Glucose Calcium Magnesium Total Bilirubin AST ALT Alkaline Phosphatase Troponin I NT-Pro-B Natriuret Pep Total Protein Albumin Patient ABO/Rh Antibody Screen
--- NOTE | 2022-11-10 13:38 | W.ANESPRE ---
General Info Date of Service Date Performed: 11/10/22 Height: 5 ft 4 in Weight: 70.9 kg Body Mass Index (BMI): 26.8 Surgical Procedure: Operation Date: 11/10/22 13:50 Proposed Procedure Side Surgeon p Gastroscopy Serina Duong, Meds Allergies and Home Medications Allergies Allergy/AdvReac Type Severity Reaction Status Date / Time atenolol Allergy Mild Verified 11/02/22 14:12 ezetimibe [From Zetia] Allergy Mild Verified 11/02/22 14:12 hydroxychloroquine Allergy Mild Verified 11/02/22 14:12 [From Plaquenil] lisinopril Allergy Mild Verified 11/02/22 14:12 losartan [From Cozaar] Allergy Mild Verified 11/02/22 14:12 cephalexin Allergy Rash Verified 09/14/22 10:54 ciprofloxacin Allergy Verified 09/14/22 10:54 Epmuitu-FZB-CtW Reductase Allergy Verified 11/02/22 14:12 Inhibitor [Ldczqtv-Wfn-Tio Reductase Inhibitor] oxycodone HCl [From Percocet] AdvReac CRAZY Verified 11/02/22 14:12 Home Medication Medication Instructions Recorded candesartan 32 mg tablet 32 mg PO DAILY 04/28/17 acetaminophen 325 mg tablet 650 mg PO Q4H PRN PRN fever,pain 04/30/17 (Tylenol) apixaban 5 mg tablet (Eliquis) 5 mg PO BID #180 tabs 09/01/17 cetirizine 10 mg tablet (Zyrtec) 10 mg PO DAILY 10/25/19 metformin 750 mg tablet,extended 750 mg PO BID 10/25/19 release 24 hr evolocumab 140 mg/mL subcutaneous 140 mg subcut Q2W 12/12/20 syringe (Repatha Syringe) magnesium oxide 400 mg (241.3 mg 400 mg PO DAILY 12/12/20 magnesium) tablet pen needle, diabetic ##1 12/12/20 insulin lispro 100 unit/mL See Rx Instructions subcut 08/04/21 subcutaneous pen (Humalog KwikPen DIRECTED (U-100) Insulin) cholecalciferol (vitamin D3) 25 25 mcg PO DAILY 09/02/21 mcg (1,000 unit) capsule cyanocobalamin (vitamin B-12) 1,000 mcg PO DAILY 02/03/22 5,000 mcg capsule insulin glargine 100 unit/mL 30 unit subcut QHS 02/03/22 subcutaneous solution (Lantus U-100 Insulin) gabapentin 100 mg capsule 300 mg PO BID 09/14/22 aspirin 81 mg chewable tablet 81 mg PO DAILY #0 tabs 09/15/22 (Children's Aspirin) gabapentin 300 mg capsule 600 mg PO HS 11/02/22 ondansetron 4 mg disintegrating 4 mg PO Q8H PRN nausea and 11/02/22 tablet vomiting #30 tabs semaglutide 2 mg/dose (8 mg/3 mL) 2 mg subcut QWEEK 11/02/22 subcutaneous pen injector (Ozempic) tamsulosin 0.4 mg capsule (Flomax) 0.4 mg PO DAILY #14 caps 11/04/22 Current Visit Medications: Current Medications Generic Name Dose Route Start Last Admin Trade Name Freq PRN Reason Stop Dose Admin Acetaminophen 650 mg 11/10/22 02:50 Acetaminophen 325 Mg Tab PO Q4H PRN PRN fever,pain Cetirizine HCl 10 mg 11/10/22 08:30 11/10/22 08:18 Cetirizine 10 Mg Tab PO 10 mg DAILY CHEKO Administration Cyanocobalamin 1,000 mcg 11/10/22 08:30 11/10/22 08:18 Cyanocobalamin 500 Mcg Tab PO 1,000 mcg DAILY CHEKO Administration Dextrose 0 gm 11/10/22 02:59 Glucose Oral Gel 15 Gm/37.5 Gm Tube PO DIRECTED PRN Dextrose/Water 0 gm 11/10/22 02:59 Dextrose 50%-Water 25 Gm/50 Ml Syr IVP DIRECTED PRN Dimethicone/Zinc Oxide 0 gm 11/10/22 02:53 Nicole Protect Cream 142 Gm Tube TP PRN PRN Gabapentin 600 mg 11/10/22 22:00 Gabapentin 300 Mg Cap PO HS CHEKO Gabapentin 300 mg 11/10/22 08:30 11/10/22 08:18 Gabapentin 300 Mg Cap PO 300 mg 0830,1400 CHEKO Administration Potassium Chloride/Sodium Chloride 1,000 mls @ 100 mls/hr 11/10/22 03:00 11/10/22 12:16 Kcl 20meq/0.45% Nacl IV 100 mls/hr INFUSION CHEKO Infusion Sodium Chloride 500 mls @ 0 mls/hr 11/10/22 10:56 Saline 500ml Bag IV PRN PRN As Directed IV Miscellaneous Supplies 1 each 11/10/22 11:00 Iv Access IV DIRECTED [facility] Insulin Aspart 0 - 18 units 11/10/22 08:00 11/10/22 11:58 Insulin Aspart 300 Units/3 Ml Pen SC 6 units 0800,1200,1700 CHEKO Administration Protocol Insulin Glargine 30 units 11/10/22 04:00 11/10/22 04:42 Insulin Glargine 300 Units/3 Ml Pen SC 30 units HS CHEKO Administration Magnesium Oxide 400 mg 11/10/22 08:30 11/10/22 08:18 Magnesium Oxide 400 Mg Tab PO 400 mg DAILY CHEKO Administration Ondansetron HCl 4 mg 11/10/22 02:50 Ondansetron O.D.T. 4 Mg Tabef PO Q8H PRN PRN nausea and vomiting Pt's Own Candesartan 1 each 11/10/22 08:30 11/10/22 12:07 32 Mg Tablet PO Not Given DAILY [facility] Sodium Chloride 0 ml 11/10/22 10:56 Normal Saline Flush 10 Ml Syr IVP PRN PRN Sucralfate 1 gm 11/10/22 06:00 11/10/22 13:02 Sucralfate 1 Gm Tab PO 1 gm Q6H CHEKO Administration PFSH Active Problems Active Problems: Problem Status Onset Code Discharge planning issues Z02.9 DVT prophylaxis Z29.9 Acute GI bleeding K92.2 Syncope R55 Ventricular tachycardia, non-sustained I47.29 Kidney stone on left side N20.0 Mobitz type 1 second degree AV block I44.1 Sinus pause I45.5 Elevated troponin R77.8 Bradykinesia R25.8 Memory problem R41.3 Cervical radiculopathy M54.12 Sciatica M54.30 Neuropathic pain M79.2 Tremor R25.1 Abnormal movements R25.9 Actinic keratosis L57.0 History of CVA (cerebrovascular accident) Z86.73 Pelvic pain in female R10.2 Squamous cell skin cancer C44.92 Granulomatous disorder of the skin and subcutaneous tissue, unspecified L92.9 Mixed stress and urge urinary incontinence N39.46 History of kidney stones Z87.442 Recurrent UTI (urinary tract infection) N39.0 Left acute arterial ischemic stroke, MCA (middle cerebral artery) I63.512 Diabetes mellitus type 2, uncontrolled, with complications E11.8, E11.65 Hyperlipidemia associated with type 2 diabetes mellitus E11.69, E78.5 Hypertension associated with diabetes E11.59, I10 ESE (acute kidney injury) N17.9 Allergic to IV contrast Z91.041 Pain in right lower leg M79.661 Medical History Medical History Acne rosacea Adequate 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 on anticoagulant therapy Adjustment disorder with mixed anxiety and depressed mood Allergic rhinitis Asthma Atypical chest pain Carcinoma of skin CVA (cerebral vascular accident) Diabetic peripheral neuropathy Diarrhea H/O urinary frequency Hypercalcemia Hyperlipidemia Hyperparathyroidism Hypertension Intermittent asthma Microalbuminuria Myalgia Overflow incontinence Paroxysmal atrial fibrillation Peripheral neuropathy Reactive depression Type 2 diabetes mellitus Urge urinary incontinence Urinary incontinence Weakness of foot Surgical History Surgical History Abdominal hysterectomy bladder repair,open Hx of colonoscopy Tobacco Smoking/Tobacco Use Status: Never Alcohol Alcohol Intake: never Substance Use Substance use: Never Substance use type: does not use Vital Signs and Lab Results Vital Signs Most Recent Vital Signs in EMR: Most Recent Vital Signs Temp Pulse Resp BP Pulse Ox 36.4 C 91 H 20 128/63 98 11/10/22 12:00 11/10/22 12:00 11/10/22 12:00 11/10/22 12:00 11/10/22 12:00 Point of Care Results Point of Care Results: Finger Stick Blood Glucose 232 11/10/22 11:58 Lab Results 11/10/22 10:45 11/10/22 00:55 Blood Type / Crossmatch: Patient ABO/Rh A Negative 11/10/22 Antibody Screen NEGATIVE 11/10/22 Complete Blood Count: White Blood Count 12.41 10^3/uL (4.4-10.8) H 11/10/22 00:55 Red Blood Count 3.22 10^6/uL (3.93-5.22) L 11/10/22 00:55 Hemoglobin 7.5 g/dL (11.2-15.7) L 11/10/22 10:45 Hematocrit 22.7 % (36.0-46.0) L 11/10/22 10:45 Platelet Count 350 10^3/uL (130-400) 11/10/22 00:55 Complete Metabolic Panel: Sodium 136 mmol/L (136-145) 11/10/22 00:55 Potassium 4.3 mmol/L (3.5-5.1) 11/10/22 00:55 Chloride 103 mmol/L (98-107) 11/10/22 00:55 Carbon Dioxide 24.4 mmol/L (21.0-32.0) 11/10/22 00:55 BUN 47 mg/dL (7-18) H 11/10/22 00:55 Creatinine 1.2 mg/dL (0.55-1.02) H 11/10/22 00:55 Est GFR (CKD-EPI 2020) 48.70 (mL/min/1.73m2) 11/10/22 00:55 Magnesium 1.9 mg/dL (1.8-2.4) 11/10/22 00:55 Calcium 9.9 mg/dL (8.5-10.1) 11/10/22 00:55 Albumin 3.1 g/dL (3.4-5.0) L 11/10/22 00:55 Glucose 353 mg/dL (74-106) H 11/10/22 00:55 Liver Function Panel: Alanine Aminotransferase (ALT/SGPT) 16 U/L (14-59) 11/10/22 00:55 Aspartate Amino Transf (AST/SGOT) 14 U/L (15-37) L 11/10/22 00:55 Coagulation Panel: INR International Normalized Ratio 1.0 (0.9-1.1) 11/10/22 00:55 Prothrombin Time 10.6 sec (9.3-11.0) 11/10/22 00:55 Activated Partial Thromboplast Time 21.0 sec (21.5-31.9) L 11/10/22 00:55 Cardiac Panel: Troponin I 105 ng/L (<or=60) H* 11/10/22 NT-Pro-B Natriuret Pep 1349 pg/mL (<300) H 11/10/22 Arterial Blood Gas: No Data to Display Venous Blood Gas: No Data to Display Pancreas Panel: No Data to Display Thyroid Panel: No Data to Display Infectious Disease: No Data to Display Blood Cultures: No Data to Display Toxicology Panel: No Data to Display Imaging and Studies Imaging and Studies Study information below may be from another EMR and interpreted by another provider. Please see original notes in EMR for more complete details. EKG Summary: DATE/TIME OF SERVICE: 11/10/2253 : 1950ERFORMING LOCATION: [place] APPROVED REPORT Exam: Resting ECG Reason for Exam: syncope Patient Location: E HR:88 bpm ECG Measurements Heart Rate 88 AXIS NY 241 P 214 QRSd 123 QRS -23 QT 394 T136 QTc 478 Conclusion Sinus or ectopic atrial rhythm...P axis (-45,135) Prolonged NY interval...NY >220, V-rate 50- 90 Left bundle branch block...QRSd>120, broad/notched R Inferior infarct, acute...ST>0.10mV, T upright, II III aVF Physician: negative for sgarbossa criterion. unchanged from prior ekg Stress Test Summary: Date of study: 05/12/2017 *PATIENT PRESENTATION* Height: 162.6cm (64in) Blood Pressure: Weight: 77.3kg (170lb) BSA: 1.89m^2 Referring physician: Stone Argueta Ordering physician: Franny Davison* Impressions: Negative stress test after pharmacologic stress. Summary: Echocardiogram Summary: Date of Exam: 12/18/20Sex: F Admission Date: 12/18/20 : 1950 Age: 70 APPROVED REPORT EXAM: Comprehensive 2D, Doppler, and color-flow Echocardiogram Patient Location: Out-Patient Supervisor Drying: Aide Graham RDCS (AE) Indications: Dilated Cardiomyopathy Other Information Study Quality: Adequate Conclusion Left Ventricle : The left ventricle is normal size. The left ventricular systolic function is normal. The left ventricular ejection fraction is within the normal range. Severe concentric left ventricular hypertrophy. There is normal LV segmental wall motion. The left ventricular diastolic function is abnormal. LVEF is 55%. Right Ventricle : The right ventricle is normal size. The right ventricular systolic function is normal. Atria : The left atrium size is normal. The right atrium size is normal. Great Vessels : The aortic root is normal in size. The ascending aorta is mildly dilated. Aortic arch is not well visualized. IVC is normal in size and collapses >50% with inspiration. Compared to study from 04/29/2017, there is no significant change. Anesthesia Assessment and Plan Anesthesia History Personal History: Other (unable to remember after anesthesia, confusion.) Family History: No Family History of Anesthesia Complications Exercise Tolerance Exercise Tolerance: Metabolic Equivalents>4 Pertinent Negatives Pertinent Negatives: No Symptoms of GERD Cardiac & Pulmonary Exam Cardiac Exam: Normal S1/S2 Heart Sounds Pulmonary Exam: Clear Bilateral Breath Sounds Implantable Cardiac Device Does patient have a Pacemaker or an ICD?: No Airway Exam Known Difficult Airway: No Mallampati Class: 2 Mouth Opening: Normal (> 3cm) Thyromental Distance: Greater than 3 cm Neck Range of Motion: Full ROM Neck Circumference: Normal Teeth Condition: Normal Dentition ASA Classification ASA Score: ASA 3 Emergency Case?: No NPO Status NPO Status: NPO Clears >2 hours, Solids >8 hours Anesthesia Plan Resuscitation Status: Full Code Anesthesia Technique: General Anesthesia Airway Planned: Natural Airway Monitors Used: Standard Monitors
[2022-11-10] MEDS: Lactated Ringers 1,000 ML 30 ML IV (14:21)
[2022-11-10] MEDS: ePHEDrine 25 MG/5 ML Syringe IVP (15:17)
--- NOTE | 2022-11-10 15:17 | ENDO_ITS ---
Date of service: 11/10/22 Time of Service: 15:18 Endoscopy Report DATE OF PROCEDURE: 11/10/22 PRE-OP DIAGNOSIS: gi bleed POST-OP DIAGNOSIS: other (esophagitis ) SURGEON: Serina Duong ANESTHESIA TYPE: General:No Airway ESTIMATED BLOOD LOSS: 0 PATHOLOGY: none sent COMPLICATIONS: None DISPOSITION: PACU PROCEDURE DESCRIPTION: After informed consent was obtained the patient was take to the procedure room and placed in a supine position. Monitors were applied and a time out was done. The patients name, date of , procedure type, allergies to medications and metal in their body was reviewed. A bite block was placed and the patient was sedated. Once sedated and comfortable the gastroscope was advanced through the oropharynx which was grossly normal into the esophagus. The proximal and mid- esophagus were nl. In the distal esophagus there was mild esophagitis. There is a large amount of clot mixed with food in the cardia region. This is removed and irrigated. There is no signs of any active bleeding. The entire stomach is coated with old blood. Again this is washed away. There are no ulcers there is no gastritis present. There were no tumors or masses.. The scope was advanced into the stomach and through the pylorus into the 3rd portion of the duodenum. The duodenum was noted to be normal with no ulcers or masses. Biopsies were done not done as she has not been off of Eliquis for more than 12 hours. The scope was retroflexed. The cardia and fundus were noted to be normal. There is no hiatal hernia noted. The scope was retracted back into the esophagus and biopsies were done of the GE junction to rule out Jeronimo's. The Z line was irregular. The GE junction was at 40 cm. The scope was removed and the patient was woken up and taken back to [facility] in stable condition. Follow up: Repeat scope in 6 to 12 weeks time.
[2022-11-10] MEDS: Normal Saline Flush 10 ML SYR IVP ×2 (16:10→19:37)
--- NOTE | 2022-11-10 16:40 | W.ANESPOSTOP ---
Postoperative Evaluation Date, Time and Location Date Performed: 11/10/22 Time Performed: 16:40 Patient Location: PACU Vital Signs Most Recent Imported Vital Signs: Most Recent Vital Signs Temp Pulse Resp BP Pulse Ox 36.2 C L 93 H 20 118/73 96 11/10/22 16:03 11/10/22 16:20 11/10/22 16:03 11/10/22 16:03 11/10/22 16:03 Pain Score Most Recent Pain Score: Most Recent Pain Score Pain Level 0 11/10/22 15:39 Assessment Mental Status: Awake (Alert & Oriented to Patient Baseline) Airway and Respiratory Function: Patent airway with normal (patient baseline) respiratory exam Cardiovascular Function: Hemodynamically Stable Hydration Status: Adequately Hydrated Nausea & Vomiting: No Nausea or Vomiting Pain: Pt. Denies Any Pain Peripheral Nerve Block: Patient did not receive a nerve block
[2022-11-10] MEDS: Acetaminophen 325 MG TAB 650 MG PO (20:09)
[2022-11-10 22:12] LABS: HCT 21.1 % (36.0-46.0); HGB 7.1 g/dL (11.2-15.7)
--- NOTE | 2022-11-10 22:15 | NUR.NOTE ---
Nursing Note: Went in patient room at 2155, patient stated I'm going to have an episode. Patient is very pale and diaphoretic. Patient was laying in a semifowlers position at onset, Patient states she was not moving or doing anything when it started. Patient was put into a supine position, ANGELI, RN Geremias notified, vital signs obtained. ICU also notified to check for any changes on telemetry. Patient did not lose consciousness at all, just states she feels like she was about to pass out and very dizzy and hot. Patient also had timed labs drawn at this time for a repeat h/h. ANGELI Archuleta,RN notified MD as well.
[2022-11-10] MEDS: Gabapentin 300 MG CAP 600 MG PO (22:24)
[2022-11-11] VITALS (80 sets, daily range): BP systolic 105–155; BP diastolic 38–84; PULSE 56–103; RESP 15–28; TEMP 36.1–37.6; O2SAT 95–100
[2022-11-11] MEDS: Acetaminophen 325 MG TAB 650 MG PO (01:36)
[2022-11-11] MEDS: Furosemide 20 MG/2 ML VIAL 10 MG IVP (02:18)
[2022-11-11] MEDS: Normal Saline Flush 10 ML SYR IVP ×2 (02:19→03:21)
[2022-11-11] MEDS: Normal Saline 500 ML 30 ML IV ×2 (02:19→02:20)
--- NOTE | 2022-11-11 03:47 | NUR.NOTE ---
@ around 0315 pt called out for help; upon arriving to pt's room pt was found vomitting subsantial amount of blood clots. Pt was receiving 3rd unit of PRBC @ 150 ml/hr. Charge nurse Samaria titrated up to 300 mls/hr. VS recorded and were stable, hospitalist, lab, nursing supervisor drawing, ER doctor we notified. Pt was AAOX4, a bit anxious but denies pain; pt was pale. ER provider and nursing supervisor drawing came to the unit, another IV placed, VSS; pt was then transfered to the ICU Nursing Note:
[2022-11-11 04:20] LABS: HCT 27.2 % (36.0-46.0); HGB 9.4 g/dL (11.2-15.7); MCH 31.2 pg (27.0-33.0); MCHC 34.6 % (32.0-36.0); MCV 90 fL (80-95); MPV 10.7 fL (8.0-11.0); Platelet Count 201 10^3/uL (130-400); RBC 3.01 10^6/uL (3.93-5.22); RDW 13.6 % (11.7-14.6); RDW-SD 44.5 fL; WBC 15.55 10^3/uL (4.4-10.8)
[2022-11-11] MEDS: PANTOPRAZOLE 80 MG in Normal Saline 100 ML 10 MG IV (04:20)
--- NOTE | 2022-11-11 04:26 | W.PM.PROGNOT ---
Date of Service Date of service: 11/11/22 Time of Service: 04:26 Assessment and Plan Assessment and plan (1) Acute blood loss anemia: Status: Acute Assessment and plan: -see HPI This document was created with voice activated software and may contain errors. 90 mins spent with the patient today in Critical care time. (2) Syncope: Status: Chronic (3) Mobitz type 1 second degree AV block: Status: Acute (4) Adequate 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 on anticoagulant therapy: (5) Allergic to IV contrast: (6) Asthma: (7) CVA (cerebral vascular accident): (8) Diabetic peripheral neuropathy: (9) Diarrhea: (10) History of CVA (cerebrovascular accident): (11) History of kidney stones: (12) Recurrent UTI (urinary tract infection): Status: Acute (13) Diabetes mellitus type 2, uncontrolled, with complications: Status: Chronic (14) Hyperlipidemia associated with type 2 diabetes mellitus: Status: Acute (15) Hypertension associated with diabetes: Status: Chronic (16) ESE (acute kidney injury): Status: Acute (17) Peripheral neuropathy: (18) Urge urinary incontinence: Subjective Subjective Interval history since last seen: pt coughed up about 1.5 cups of clot. she denies any abdominal pain or chest pain. BP has been stable, ~ 130's. Repeat hgb 7.1 pt has two lrg bore peripheral IV's. Once we get the DOAC reversed, than will place IJ. EGD at 14:00 showed mild esophagitis. There was a large amount of clot. No gastritis/masses/ulcers. CT 11/02- noncon/stone protocol. no portal HTN No evidence of active on -going bleeding. Does not require repeat EGD at this time. I think the bleeding is more medical, and cont PPI and reverse DOAC. plan -kcentra -additional 2 units PRBC (4 total this admission) & 1 unit FFP -protonix drip -unclear etiology of bleed. check RBC scan in am. -pt recently started on ASA (1 wk previously). 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 was having CP earlier, but none currently. L: CTA abdom: soft and non tender Objective Last Vital Signs Temp 37.6 C H 11/11/22 02:48 Pulse 90 11/11/22 03:34 Resp 18 11/11/22 02:48 BP 130/74 11/11/22 02:48 Pulse Ox 98 11/11/22 02:48 Laboratory Results - last 24 hr 11/10/22 11/10/22 11/10/22 00:55 04:40 04:40 WBC RBC Hgb 8.9 L Hct 26.3 L MCV MCH MCHC RDW Plt Count MPV Troponin I 105 H* Patient ABO/Rh A Negative Antibody Screen NEGATIVE Crossmatch See Detail 11/10/22 11/10/22 11/10/22 10:45 10:45 12:00 WBC RBC Hgb 7.5 L Cancelled Hct 22.7 L Cancelled MCV MCH MCHC RDW Plt Count MPV Troponin I Patient ABO/Rh A Negative Antibody Screen Crossmatch 11/10/22 11/11/22 21:59 04:05 WBC 15.55 H RBC 3.01 L Hgb 7.1 L 9.4 L D Hct 21.1 L 27.2 L MCV 90 MCH 31.2 MCHC 34.6 RDW 13.6 Plt Count 201 MPV 10.7 Troponin I Patient ABO/Rh Antibody Screen Crossmatch Time Spent with Patient Time Spent with Patient: >50 minutes Time was spent: preparing to see the patient(eg.review tests), obtaining and/or reviewing separately otained hiistory, ordering medications,tests, procedures, referring, communicating with other health hospice care sales consultant, indepentently interpreting results, counseling the patient and care coordination
[2022-11-11 04:42] LABS: ALT 17 U/L (14-59); AST 24 U/L (15-37); Albumin 2.5 g/dL (3.4-5.0); Alkaline Phosphatase 36 U/L (46-116); Anion Gap 14.8 mmol/L (3-11); BUN 53 mg/dL (7-18); Bilirubin, Total 0.7 mg/dL (0.2-1.0); CO2 15.2 mmol/L (21.0-32.0); CREATININE 1.4 mg/dL (0.55-1.02); Calcium 8.3 mg/dL (8.5-10.1); Chloride 106 mmol/L (98-107); Estimated GFR 40.47 (mL/min/1.73m2); Glucose 421 mg/dL (74-106); Potassium 5.2 mmol/L (3.5-5.1); Sodium 136 mmol/L (136-145); Total Protein 4.9 g/dL (6.4-8.2)
[2022-11-11 04:47] LABS: INR 1.1 (0.9-1.1); PTT Activated 19.4 sec (21.5-31.9); Prothrombin Time 11.3 sec (9.3-11.0)
--- NOTE | 2022-11-11 04:49 | W.PM.PROGNOT ---
Date of Service Date of service: 11/11/22 Time of Service: 04:49 Assessment and Plan Assessment and plan (1) Acute GI bleeding: Start date: 11/09/22 Status: Acute Assessment and plan: Esophagitis on EGD with patient vomiting a large amount of clotted blood prompting intervention with Kcentra to reverse Eliquis, Protonix infusion continuing and aspirin already held. Patient is being given for frozen plasma as well. PT/INR not elevated. Platelet count is normal. His most likely is a slow oozing of blood into the stomach with esophagitis which was not actively bleeding Dr Duong did the EGD. Dr. Duong will continue in consultation and appreciate her orders and evaluation of the patient acutely. Patient is being transfused up to 5 units of 5 of blood cells with 2 units of special plasma. Time spent at patient bedside was 45 minute with transfer to ICU, reevaluation of treatment plan with consultation with the ED physician, Dr. Gill, and the surgeon, Dr. Duong as well as evaluating lab with potentially critical status during evaluation. Patient's son was contacted who will contact the patient's . I did review the situation with Justin Hart, the patient's son. (2) Acute blood loss anemia: Start date: 11/09/22 Status: Acute Assessment and plan: Patient's hemoglobin did drop to as low as 7.1 it was up to 9.4 but was possibly actively bleeding with 2 more units of packed red blood cells and fresh frozen plasma given after the third unit and after the fifth unit of packed red blood cells. Surgery agrees with this plan. Tagged red blood cell study will be done in the morning the patient not having any other surgical intervention for now with this appears to be a slow trickle of blood rather than acute briskly. She is hemodynamically stable and transferred indicated at this time but will be obtained. She is a full code. (3) Paroxysmal atrial fibrillation: Status: Chronic Assessment and plan: Presently in [place] 1 second-degree AV block with regular rhythm. Patient was on Eliquis with aspirin and these have been held since the evening of 11/09/2022. Patient was given Kcentra to reverse Eliquis because of acute emesis of blood clot. Surgery is following with possible central line placement if needed with her acute blood loss anemia. (4) Diabetes mellitus type 2, uncontrolled, with complications: Status: Chronic Assessment and plan: Patient has been n.p.o. ankle, was in the 140 range with Lantus held. This can be reinitiated at a lower dose with glucometer and follow-up and sliding scale coverage with short acting insulin for now. Long-term she is poorly controlled. Subjective Subjective Interval history since last seen: This is a 72-year-old lady on Eliquis and aspirin which were held upon admission who had an EGD revealing mild esophagitis but no active bleeding with a stomach full of old blood clot. Initial hemoglobin was 9.9 upon mission but dropped down to 7.5 after 1 unit of packed red blood cells dropped further to 7.1. She was on her third unit of packed red blood cells when she felt the sudden onset of nausea and vomited up a large blood clot. She has some slight coughing but no continued coughing and did not appear to aspirate. She had no further bleeding and a rapid response was called. The patient was evaluated by the ED physician, Dr. Gill who assessed patient for possible central line but since she had recently been on Eliquis and aspirin and this has been less than 24 hours without reversal, the patient was not recommended to have a central line by Dr. Duong who is also called during the rapid response. Her vital signs were stable with minimal tachycardia which she first vomited which was mostly anxiety and then she would not tachycardic and blood pressure never dropped. She did appear pale and slightly diaphoretic but this cleared as well. Dr. Diane had ordered Kcentra 2000 units IV which was being obtained and after this she would consider a central line. Dr. Duong also assessed the patient as not acutely or briskly bleeding with which I agree. She was replaced on a Protonix infusion having received an infusion in the ED and then 1 bolus during the day and she will be study with tagged red blood cells to obtain better idea of whether the patient's source of bleeding may be. Since she was appearing to briskly bleed and stable cardiovascularly, transfer was entertained but not pursued. The patient was somewhat frightened but not having chest pain or significant shortness of breath during this event. Her troponin was slightly elevated but trending downward with labs in this morning for troponin repeat. quality assurance monitor final revealed regular rhythm with normal rate. The patient did asked that I call her son, Justin Hart and I did call him and instructed him for his mother's wishes that he contact his father. Patient was transferred to ICU in stable condition and was receiving 2 more units of packed blood cells with a fresh frozen plasma prior and after these 2 units. Hemoglobin did increase after the first 3 units to 9.4 from 7.1 and because of the unpredictableness of the situation, this plan will be carried through. Patient is a full code. Exam Narrative Exam Narrative: General: Patient is pale but alert and oriented x3 and slightly anxious. She is slightly diaphoretic but this cleared quickly. He is in moderate distress but easily calmed. HEENT: Normocephalic, eyes with pupils equal react light symmetrically, extraocular intact and sclera anicteric. Oral mucosa slightly dry with fair dentition. Neck: Supple without JVD. Lungs: Good auscultation and percussion. Heart: Regular rate and rhythm with 3/6 systolic murmur left arm border, no gallops or rubs. Abdomen: Slightly uncomfortable to palpation in the mid abdomen without guarding or rebound. No palpable hepatosplenomegaly. No guarding. Extremities: Without clubbing, cyanosis or pitting edema. Good cap refill. Skin: Pale, moist and warm. Patient is becoming less diaphoretic over time. 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 Cranial nerves II through XII grossly intact. No tremor. Psych: Slightly anxious with normal mood. Remote and recent memory intact. No abnormal thought processes. Objective Last Vital Signs Temp 36.1 C L 11/11/22 03:07 Pulse 90 11/11/22 03:34 Resp 18 11/11/22 03:07 BP 133/69 11/11/22 03:07 Pulse Ox 98 11/11/22 03:07 Laboratory Results - last 24 hr 11/10/22 11/10/22 11/10/22 00:55 04:40 10:45 WBC RBC Hgb 7.5 L Hct 22.7 L MCV MCH MCHC RDW Plt Count MPV Sodium Potassium Chloride Carbon Dioxide Anion Gap BUN Creatinine Est GFR (CKD-EPI 2020) Glucose Calcium Total Bilirubin AST ALT Alkaline Phosphatase Troponin I 105 H* Total Protein Albumin Patient ABO/Rh A Negative Antibody Screen NEGATIVE Crossmatch See Detail 11/10/22 11/10/22 11/10/22 10:45 12:00 21:59 WBC RBC Hgb Cancelled 7.1 L Hct Cancelled 21.1 L MCV MCH MCHC RDW Plt Count MPV Sodium Potassium Chloride Carbon Dioxide Anion Gap BUN Creatinine Est GFR (CKD-EPI 2020) Glucose Calcium Total Bilirubin AST ALT Alkaline Phosphatase Troponin I Total Protein Albumin Patient ABO/Rh A Negative Antibody Screen Crossmatch 11/11/22 11/11/22 04:05 04:05 WBC 15.55 H RBC 3.01 L Hgb 9.4 L D Hct 27.2 L MCV 90 MCH 31.2 MCHC 34.6 RDW 13.6 Plt Count 201 MPV 10.7 Sodium 136 Potassium 5.2 H Chloride 106 Carbon Dioxide 15.2 L Anion Gap 14.8 H BUN 53 H Creatinine 1.4 H Est GFR (CKD-EPI 2020) 40.47 Glucose 421 H Calcium 8.3 L Total Bilirubin 0.7 AST 24 ALT 17 Alkaline Phosphatase 36 L Troponin I Total Protein 4.9 L Albumin 2.5 L Patient ABO/Rh Antibody Screen Crossmatch Reviewed Pertinent PMH: Yes Time Spent with Patient Time Spent with Patient: 35-49 minutes Time was spent: preparing to see the patient(eg.review tests), obtaining and/or reviewing separately otained hiistory, ordering medications,tests, procedures, referring, communicating with other health healthcare representative, indepentently interpreting results, counseling the patient and care coordination
[2022-11-11] MEDS: Sucralfate 1 GM TAB PO (05:49)
[2022-11-11] MEDS: OCTREOTIDE 250 MCG in Normal Saline 245 ML 50 MCG IV ×2 (06:27→11:15)
[2022-11-11] MEDS: Furosemide 20 MG/2 ML VIAL IVP (07:47)
[2022-11-11] MEDS: Insulin Aspart 300 UNITS/3 ML PEN SC (08:22)
[2022-11-11 08:37] LABS: HGB 9.4 g/dL (11.2-15.7)
--- NOTE | 2022-11-11 08:45 | RT.EKG_ITS ---
APPROVED REPORT Exam: Resting ECG Reason for Exam: chest pressure, elevated trop Patient Location: I HR:94 bpm ECG Measurements Heart Rate 94 AXIS OR 245 P 189 QRSd 118 QRS -19 QT 379 T 148 QTc 474 Conclusion Sinus or ectopic atrial rhythm...P axis (-45,135) Prolonged OR interval...OR >215, V-rate 91-120 LVH with IVCD and secondary repol abnrm...multi-criteria, wQRSd, abnr ST-T
[2022-11-11 08:54] LABS: Troponin I 22262 ng/L (<or=60)
--- NOTE | 2022-11-11 09:05 | W.PM.PROGNOT ---
Date of Service Date of service: 11/11/22 Time of Service: 09:06 Assessment and Plan Assessment and plan (1) Acute GI bleeding: Status: Acute Assessment and plan: I will attempt to go back up and see patient in a little bit. The nursing staff will call me with acute changes or need for central line Possible transfer Subjective Subjective Interval history since last seen: Joanna is stable. She did have another melanotic stool this am. Hgb is stable at 9.4. Her Eliquis has been stopped and reversed. I didn't go in to see the patient as the family and the hospitalist where in the room. While I was there her Troponin came back at over 22,000. Hospitalist will be calling [facility] for possible emergent transfer due to continued bleeding and [place] I have asked for them to call if patient needs a Central line. Right now her BP is stable. No indication for a Central line at this time as she has 2 large bore IV's that are working well. Objective Last Vital Signs Temp 97.9 F 11/11/22 07:42 Pulse 88 11/11/22 08:31 Resp 26 H 11/11/22 08:31 BP 145/47 H 11/11/22 08:31 Pulse Ox 98 11/11/22 08:31 Laboratory Results - last 24 hr 11/10/22 11/10/22 11/10/22 00:55 10:45 10:45 WBC RBC Hgb 7.5 L Hct 22.7 L MCV MCH MCHC RDW Plt Count MPV PT INR APTT Sodium Potassium Chloride Carbon Dioxide Anion Gap BUN Creatinine Est GFR (CKD-EPI 2020) Glucose Calcium Total Bilirubin AST ALT Alkaline Phosphatase Troponin I Total Protein Albumin Patient ABO/Rh A Negative A Negative Antibody Screen NEGATIVE Crossmatch See Detail 11/10/22 11/10/22 11/11/22 12:00 21:59 04:05 WBC 15.55 H RBC 3.01 L Hgb Cancelled 7.1 L 9.4 L D Hct Cancelled 21.1 L 27.2 L MCV 90 MCH 31.2 MCHC 34.6 RDW 13.6 Plt Count 201 MPV 10.7 PT INR APTT Sodium Potassium Chloride Carbon Dioxide Anion Gap BUN Creatinine Est GFR (CKD-EPI 2020) Glucose Calcium Total Bilirubin AST ALT Alkaline Phosphatase Troponin I Total Protein Albumin Patient ABO/Rh Antibody Screen Crossmatch 11/11/22 11/11/22 11/11/22 04:05 04:05 05:35 WBC RBC Hgb Cancelled Hct Cancelled MCV MCH MCHC RDW Plt Count MPV PT 11.3 H INR 1.1 APTT 19.4 L Sodium 136 Potassium 5.2 H Chloride 106 Carbon Dioxide 15.2 L Anion Gap 14.8 H BUN 53 H Creatinine 1.4 H Est GFR (CKD-EPI 2020) 40.47 Glucose 421 H Calcium 8.3 L Total Bilirubin 0.7 AST 24 ALT 17 Alkaline Phosphatase 36 L Troponin I Total Protein 4.9 L Albumin 2.5 L Patient ABO/Rh Antibody Screen Crossmatch 11/11/22 11/11/22 08:30 08:30 WBC RBC Hgb 9.4 L Hct 28.0 L MCV MCH MCHC RDW Plt Count MPV PT INR APTT Sodium Potassium Chloride Carbon Dioxide Anion Gap BUN Creatinine Est GFR (CKD-EPI 2020) Glucose Calcium Total Bilirubin AST ALT Alkaline [place] [address] H* Total Protein Albumin Patient ABO/Rh Antibody Screen Crossmatch Time Spent with Patient Time Spent with Patient: <25 minutes Time was spent: counseling the patient
--- NOTE | 2022-11-11 09:29 | DSE_ITS ---
Date of service: 11/11/22 Time of Service: 09:29 DS: Diagnosis Discharge Diagnosis (1) Acute GI bleeding: Status: Acute Asessment and Plan: Fatigue and chest pressure. Episodes of syncope. Hgb on 11/02/22 was 14.1. Presenting Hgb of 9.9 with repeats during the day of admission of 8.9 > 7.5. She underwent an EGD (general surgery) that showed esophagitis and blood clots in the stomach but no active bleeding. She was subsequently transfused 2 units of RBCs after Hgb decreased to 7.1. She had no melena or hematemesis on the day of admission. In the early AM of discharge (11/11) she vomited appx 1.5 cups of gelatenous red blood and subsequently another 475m. She was transfused 2 more units of RBCs and Hgb on last check was 9.4. She also received a unit of FFP and KCentra. Octreotide infusion initiated. Protonix initiated at time of admission. (2) Paroxysmal atrial fibrillation: Status: Chronic Asessment and Plan: On Eliquis / now stopped and reversed with KCentra. Ventricular heart rate controlled. Not on rate controlling medication. (3) Mobitz type 1 second degree AV block: Status: Acute Asessment and Plan: Has been evaluated by cardiology with ambulatory heart monitoring. Suggesting possible pacemaker. (4) CVA (cerebral vascular accident): Asessment and Plan: Previous history. Recently started on ASA. On Eliquis. (5) Diabetes mellitus type 2, uncontrolled, with complications: Status: Chronic Asessment and Plan: Basal/bolus insulin, metformin and Ozempic. Now NPO (6) Hyperlipidemia associated with type 2 diabetes mellitus: Status: Acute Asessment and Plan: On Repatha 140mg Q2W (7) Hypertension associated with diabetes: Status: Chronic Asessment and Plan: On Candesartan. (8) NSTEMI (non-ST elevated myocardial infarction): Status: Acute Asessment and Plan: Demand ischemia secondary to GI bleed. Chronic mild troponin elevation. No echocardigram available at [facility] at time of this hospitalization. EKG w/o ST elevation. Discharge Plan Disposition Patient Disposition: Transfer-Acute Inpatient Care Specific Acute In Facility: [facility] Condition: Serious Discharge Details Reason For Visit: GI Bleed, NSTEMI Admit Date/Time: 11/10/22 01:51 Admit Provider: Zac Villegas Attending Provider: Zac Villegas Primary Care Provider: Bryant Crain Hospital Course Hospital Course: 72 yo F with history of atrial fibrillation on apixaban, history of CVA involving left MCA, type 2 DM with last Hgb A1c 7.5% in August 2022, chronic mild troponin elevation with associated Mobitz 1 heart block, and recent kidney stone who is presenting after two episodes of chest pressure.? She felt normal until the morning prior to admission when she was in the shower after waking at around 7:30am.? She started feeling faint and felt a mild pressure in her mid chest.? She called her who helped her down as she fainted.? She went to see her PCP Dr. Crain at [facility] who did an EKG that looked okay and told her to go to the emergency room if symptoms recurred.? Later that evening, she had another episodes of chest pressure and tightness substernal, lasting a c ouple minutes, associated with shortness of breath, and she went into the emergency room.? While in the emergency room she had another episode of feeling faint, though she did not loose consciousness.? Of note, she was seen by Neurology for increase of her chronic right leg weakness that was residual from her previous stroke.? She was restarted on ASA 81mg at that visit. ? She was seen 11/02 for flank pain and diagnosed with left sided kidney stone.? She was prescribed tamsulosin but she passed the stone 11/07 without ever taking that medication. Since about the time she was here last week, she has noted black stools.? She thought is may have been the liquid she was given (contrast?).? She has not had epigastric pain or heartburn unless she eats tomato sauce.? she has not noted br ight red blood per rectum or other bleeding/hematemesis. She is currently undergoing an assessment for her cardiac status given her chronic troponin elevation, and is currently wearing a zio patch.? Stress MPI was ordered for today as an outpatient but was, of course, now cancelled. See Diagnosis? Home Meds and New Rx's Prescriptions: No Action clopidogrel 75 mg tablet 75 mg PO DAILY empagliflozin 10 mg tablet 10 mg PO DAILY losartan 25 mg tablet 25 mg PO DAILY spironolactone 25 mg tablet 25 mg PO DAILY metoprolol tartrate 25 mg tablet 25 mg PO DAILY pantoprazole 40 mg tablet,delayed release (DR/EC) 40 mg PO DAILY cholecalciferol (vitamin D3) 25 mcg (1,000 unit) capsule 25 mcg PO DAILY cyanocobalamin (vitamin B-12) 5,000 mcg capsule 1,000 mcg PO DAILY tamsulosin [Flomax] 0.4 mg capsule 0.4 mg PO DAILY Qty: 14 0RF Eliquis 5 MG tablet 5 mg PO BID Qty: 180 3RF metformin 750 mg tablet extended release 24 hr 750 mg PO BID Rx Instructions: take with Metformin 500 mg tab cetirizine [Zyrtec] 10 mg tablet 10 mg PO DAILY Repatha Syringe 140 mg/mL syringe 140 mg subcut Q2W (DME) pen needle, diabetic Needle See Rx Instructions .ROUTE .MEDSUPPLY Qty: 1 Rx Instructions: As directed magnesium oxide 400 mg (241.3 mg magnesium) tablet 400 mg PO DAILY insulin lispro [Humalog KwikPen Insulin] 100 unit/mL insulin pen See Rx Instructions subcut DIRECTED Rx Instructions: per sliding scale subcut as directed; insulin glargine [Lantus U-100 Insulin] 100 unit/mL solution 30 unit SC QHS Patient Comments: says she takes 31U in am - 09/02/21 candesartan 32 MG tablet 32 mg PO DAILY acetaminophen [Tylenol] 325 MG tablet 650 mg PO Q4H PRN PRN (Reason: fever,pain) 0RF gabapentin 100 mg Capsule 300 mg PO BID Ozempic 2 mg/dose (8 mg/3 mL) pen injector 2 mg SUBCUT QWEEK Patient Comments: Inject 0.25 mg subcutaneously once a week gabapentin 300 mg capsule 600 mg PO HS ondansetron 4 mg tablet,disintegrating 4 mg PO Q8H PRN (Reason: nausea and vomiting) Qty: 30 0RF Patient Comments: pt states not taking Discharge Instructions Activity:: Bedrest Equipment/Supplies:: No Equipment Needed Diet:: NPO Discharge Orders Discharge Orders: Discharge Order (Routine); Ordered 11/11/22 Ordered By: Jesse Robles Discharge Data Discharge Date/Time-TO BE ENTERED AT DEPARTURE: 11/11/22 11:55 Discharge Comment: To [facility] via [facility] DS: Summary Time Spent with Patient providing and/or coordinating discharge services: Greater than 30 minutes Status at Discharge Functional status at discharge: bed bound (d/t current status) Overall status at discharge: patient is not back to baseline Mental Status: mental status grossly normal Speech and Movement: speech clear Mood: congruent mood Affect: normal affect Exam Narrative Exam Narrative: General: Patient is pale, alert and oriented x3 and slightly anxious. Initially in mild distress s/p bloody emesis. Subsequently in NAD, smiling. HEENT: Normocephalic, eyes with pupils equal react light symmetrically, extraocular intact and sclera anicteric. Pale palpebral conjunctivae. Oral mucosa slightly dry with fair dentition. Neck: Supple without JVD. Lungs: Good auscultation and percussion. Heart: Regular rate and rhythm with 3/6 systolic murmur left arm border Abdomen: Slightly uncomfortable to palpation in the mid abdomen without guarding or rebound. Extremities: No edema, calf tenderness. Skin: Pale, moist and warm. Neuro: Slight decreased motor on the left which is chronic with neuropathy sec ondary to CVA from atrial fibrillation and patient did have decreased motor right lower extremity below the knee but both of these have improved near baseline. No tremor. Psych: Slightly anxious with normal mood. Remote and recent memory intact. No abnormal thought processes. Speech normal. Psych Mental Status: mental status grossly normal Speech and Movement: speech clear Mood: congruent mood Affect: normal affect DS: Data Vitals/I&O Vitals and I&O: Vital Signs Temperature 36.6 C 11/11/22 07:42 Temperature Source Temporal Artery Scan 11/11/22 07:42 Pulse 88 11/11/22 08:31 Pulse Rhythm Regular 11/11/22 01:45 Pulse 103 H 11/11/22 09:00 Respiratory Rate 21 11/11/22 09:00 Respiratory Effort Normal, Non-Labored 11/11/22 07:42 Respiratory Depth Normal 11/11/22 07:42 Respiratory Pattern Normal 11/11/22 07:42 Blood Pressure 145/47 H 11/11/22 08:31 Blood Pressure Mean 70 11/11/22 08:31 Blood Pressure Position Supine 11/11/22 07:42 Pulse Oximetry 97 11/11/22 09:00 Respiratory End-tidal CO2 0 11/10/22 15:39 Oxygen Delivery Method Room Air 11/11/22 07:42 Oxygen Flow Rate 0 11/11/22 07:42 Pain Level 0 11/11/22 04:02 Comment bolus infusing, BG 264. aware of condition. Will continue to monitor and adjust interventions as necassary. 11/10/22 10:25 Intake & Output 11/10/22 11/10/22 11/11/22 11:59 23:59 11:59 Intake Total 646.667 / 2570.000 1923.333 / 2570.000 2508.501 / 2508.501 Output Total 300 / 600 300 / 600 1300 / 1300 Balance 346.667 / 5676.994 0725.333 / 6258.904 3739.501 / 1208.501 Weight 70.9 kg 70.9 kg 72.5 kg Intake: IV 646.667 / 2100.000 1453.333 / 2100.000 1343.501 / 1343.501 Oral 120 / 120 Blood Product 350 / 350 1135 / 1135 Frozen Plasma Unit 300 / 300 [id number] Frozen Plasma Unit 305 / 305 [id number] Rbc Leuko Reduced Unit 350 / 350 280 / 280 [id number] Rbc Leuko Reduced Unit 250 / 250 [id number] Other 30 / 30 Rbc Leuko Reduced Unit 30 / 30 [id number] Output: Urine 300 / 600 300 / 600 750 / 750 Emesis 550 / 550 Other: Urine Color Yellow Yellow Pale Yellow Urine Appearance Clear Clear Clear Urine Odor None Comment incontinent of urine x1, moderate Stool Occult Blood Positive Positive Stool Size Moderate Moderate Stool Characteristics Soft Black Liquid Black Emesis Description None Bright Red Blood Mucous Gastric Occult Blood Positive Voiding Methods Toilet Diaper Incontinent Incontinent Data Completed and Pending Labs on day of discharge: Labs from last 24 hours 11/11/22 11/11/22 11/11/22 08:30 08:30 05:35 WBC RBC Hgb 9.4 L Cancelled Hct 28.0 L Cancelled MCV MCH MCHC RDW Plt Count MPV PT INR APTT Sodium Potassium Chloride Carbon Dioxide Anion Gap BUN Creatinine Est GFR (CKD-EPI 2020) Glucose Calcium Total Bilirubin AST [place] [address] H* Total Protein Albumin Patient ABO/Rh Antibody Screen Crossmatch 11/11/22 11/11/22 11/11/22 04:05 04:05 04:05 WBC 15.55 H RBC 3.01 L Hgb 9.4 L D Hct 27.2 L MCV 90 MCH 31.2 MCHC 34.6 RDW 13.6 Plt Count 201 MPV 10.7 PT 11.3 H INR 1.1 APTT 19.4 L Sodium 136 Potassium 5.2 H Chloride 106 Carbon Dioxide 15.2 L Anion Gap 14.8 H BUN 53 H Creatinine 1.4 H Est GFR (CKD-EPI 2020) 40.47 Glucose 421 H Calcium 8.3 L Total Bilirubin 0.7 AST 24 ALT 17 Alkaline Phosphatase 36 L Troponin I Total Protein 4.9 L Albumin 2.5 L Patient ABO/Rh Antibody Screen Crossmatch 11/10/22 11/10/22 11/10/22 21:59 12:00 10:45 WBC RBC Hgb 7.1 L Cancelled Hct 21.1 L Cancelled MCV MCH MCHC RDW Plt Count MPV PT INR APTT Sodium Potassium Chloride Carbon Dioxide Anion Gap BUN Creatinine Est GFR (CKD-EPI 2020) Glucose Calcium Total Bilirubin AST ALT Alkaline Phosphatase Troponin I Total Protein Albumin Patient ABO/Rh A Negative Antibody Screen Crossmatch 11/10/22 11/10/22 10:45 00:55 WBC RBC Hgb 7.5 L Hct 22.7 L MCV MCH MCHC RDW Plt Count MPV PT INR APTT Sodium Potassium Chloride Carbon Dioxide Anion Gap BUN Creatinine Est GFR (CKD-EPI 2020) Glucose Calcium Total Bilirubin AST ALT Alkaline Phosphatase Troponin I Total Protein Albumin Patient ABO/Rh A Negative Antibody Screen NEGATIVE Crossmatch See Detail PFSH All Active Problems NSTEMI (non-ST elevated myocardial infarction) (Acute) Paroxysmal atrial fibrillation (Chronic) Acute blood loss anemia (Acute) Acute GI bleeding (Acute) Syncope (Chronic) Mobitz type 1 second degree AV block (Acute) Sinus pause (Acute) Elevated troponin (Acute) Bradykinesia (Acute) Memory problem (Acute) Cervical radiculopathy (Acute) Sciatica (Acute) Neuropathic pain (Acute) Tremor (Acute) Abnormal movements (Acute) Actinic keratosis (Acute) Pelvic pain in female (Acute) Squamous cell skin cancer (Acute) Recurrent UTI (urinary tract infection) (Acute) Diabetes mellitus type 2, uncontrolled, with complications (Chronic) Hyperlipidemia associated with type 2 diabetes mellitus (Acute) Hypertension associated with diabetes (Chronic) ESE (acute kidney injury) (Acute) Pain in right lower leg (Acute) Medical History Acne rosacea Adequate 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 on anticoagulant therapy Adjustment disorder with mixed anxiety and depressed mood Allergic rhinitis Allergic to IV contrast Asthma Atypical chest pain Carcinoma of skin CVA (cerebral vascular accident) Diabetic peripheral neuropathy Diarrhea Granulomatous disorder of the skin and subcutaneous tissue, unspecified H/O urinary frequency History of CVA (cerebrovascular accident) History of kidney stones Hypercalcemia Hyperlipidemia Hyperparathyroidism Hypertension Intermittent asthma Left acute arterial ischemic stroke, MCA (middle cerebral artery) Microalbuminuria Mixed stress and urge urinary incontinence Myalgia Overflow incontinence Peripheral neuropathy Reactive depression Type 2 diabetes mellitus Urge urinary incontinence Urinary incontinence Weakness of foot Surgical History Abdominal hysterectomy bladder repair,open Hx of colonoscopy Family History Other Diabetes Hyperlipidemia Hypertension Social History Smoking/Tobacco Use Status: Never Smoking risk assessment performed?: Yes Alcohol Intake: never Drug use: Never Substance use type: does not use Household members: spouse Housing: house Number of Children: 3 number of grandchildren: 7 Pets and animals: No Current gender identity: female What is your relationship status?: Panel score (0-1 are the most socially isolated patients): 1 What type of physical activity do you participate in: swimming Seatbelt use: always Do you feel safe at home: Yes Do you feel safe in your relationship?: Yes Additional Social history: Lives in [place] with her . Grew up in [facility]. Time Spent with Patient Time Spent with Patient: 45-69 minutes Time was spent: preparing to see the patient(eg.review tests), obtaining and/or reviewing separately otained hiistory, referring, communicating with other health restorative care technician, indepentently interpreting results and care coordination
[2022-11-11] MEDS: Aspirin 81 MG CHEW PO (09:30)
[2022-11-11] MEDS: Pantoprazole 40 MG VIAL IVP (09:37)
--- NOTE | 2022-11-11 10:33 | CMDISCH_ITS ---
Date of service: 11/11/22 Time of Service: 11:31 LACE Index Scoring Tool Questions: Length of Stay (in days): 1 Was the patient admitted via the E.D.?: Yes Comorbidities: Previous M.I., Cerebrovascular Disease, Diabetes w/o Complication and Mild Liver/Renal Disease E.D. Visits: 4 Answers: Total Score: 13 Risk of Readmission: High Risk Care Management Discharge Plan Reason for Hospitalization: GI Bleed, NSTEMI Discharge Plan: Transfer to [facility] via [facility] Patient/Family Education Needs: Review transfer instructions. Services Needed at Discharge: Transportation ([facility], coordinated my RN Party Plan Sales Consultant)
--- NOTE | 2022-11-11 15:59 | CHAPLAIN ---
I had short visit with Joanna while she was on Med/Surg yesterday. She had a procedure in the OR yesterday afternoon and was transferred to the ICU sometime after that because of her GI bleed. Today she was transferred by [facility] to [facility]. This morning the on-call verification specialist was called to visit with Joanna and her Lefty. She prayed with them. Joanna is Worship and give the verification specialist permission to call the agricultural appraiser for a visit. I left a message with Fr. Gandhi but did not hear back from him before Joanna was transferred. This morning Joanna shared some personal history, telling me about growing up [place], the oldest of nine kids. They moved to [place] when Lefty retired. Joanna's aunt lived in [place] and they like it up here. Their son Justin was also with them this morning. I gave Joanna a prayer shawl.
--- NOTE | 2022-11-11 19:34 | NUR.NOTE ---
Addendum entered by Samaria White 11/11/22 22:55: 2nd lot number located LOT: [id number] Original Note: Nursing1 of 2 boxes kcenta available to record lot number. LOT : [id number] Note:
== END 2022-11-11 11:55 | disposition short-term general hospital (02) | DRG 368 ==
LOC: ER 03:17 → MS 03:22 → ICU 11-11 04:18
PROVIDERS: Family Medicine; Nurse Practitioner Acute Care; Surgery; Admitting Provider Family Medicine; Emergency Provider Student in an Organized Health Care Education/Training Program; PCP Internal Medicine; Visit Provider Family Medicine
PROC: 0DJ68ZZ Inspection of Stomach, Via Natural or Artificial Opening Endoscopic (ICD-10-PCS; CPT 43235; principal; 2022-11-10 13:45)
DX: K20.91 Esophagitis, unspecified with bleeding (principal); I21.A1 Myocardial infarction type 2; D62 Acute posthemorrhagic anemia; I47.20 Ventricular tachycardia, unspecified; R55 Syncope and collapse; R74.8 Abnormal levels of other serum enzymes; Z86.73 Personal history of transient ischemic attack (TIA), and cerebral infarction without residual deficits; Z79.4 Long term (current) use of insulin; Z79.01 Long term (current) use of anticoagulants; I44.1 Atrioventricular block, second degree; N20.0 Calculus of kidney; I49.5 Sick sinus syndrome; R41.3 Other amnesia; N39.46 Mixed incontinence; E11.65 Type 2 diabetes mellitus with hyperglycemia; E78.5 Hyperlipidemia, unspecified; R25.1 Tremor, unspecified; J45.909 Unspecified asthma, uncomplicated; E11.42 Type 2 diabetes mellitus with diabetic polyneuropathy; F43.23 Adjustment disorder with mixed anxiety and depressed mood; E21.3 Hyperparathyroidism, unspecified; Z79.82 Long term (current) use of aspirin; M54.12 Radiculopathy, cervical region; M54.30 Sciatica, unspecified side; I48.0 Paroxysmal atrial fibrillation
CPT/HCPCS: 43235; 36415; 36430; 80053; 85027; 86850; 86900; 86901; 86920; 93005; 96365; 99222; 99285; 99291; 71045; 83735; 83880; 84484; 85014; 85018; 85025; 85610; 85730; 93010; 99239; J1941; J2354; J3490; P9016; P9059

== ENCOUNTER 2022-11-17 14:09 | Outpatient (REF) | payer MEDICARE, SELFPAY ==
[2022-11-17 22:05] LABS: HCT 27.1 % (36.0-46.0); HGB 8.9 g/dL (11.2-15.7); MCH 30.2 pg (27.0-33.0); MCHC 32.8 % (32.0-36.0); MCV 92 fL (80-95); MPV 12.2 fL (8.0-11.0); Platelet Count 310 10^3/uL (130-400); RBC 2.95 10^6/uL (3.93-5.22); RDW 14.8 % (11.7-14.6); RDW-SD 46.9 fL; WBC 9.77 10^3/uL (4.4-10.8)
== END 2022-11-17 14:10 | disposition home or self-care (01) ==
LOC: NCHCN 14:09
PROVIDERS: PCP Internal Medicine; Visit Provider Internal Medicine
DX: D62 Acute posthemorrhagic anemia (principal); Z87.19 Personal history of other diseases of the digestive system
CPT/HCPCS: 85027

== ENCOUNTER 2022-11-19 08:39 | Outpatient (CLI) | payer MEDICARE, SELFPAY ==
--- NOTE | 2022-11-19 13:15 | CER_ITS ---
Date of service: 11/19/22 Time of Service: 13:15 Cardiac Event Recorder Referring Provider:: Naman Bhakta Indications:: Second-degree AV block Cardiac Event Note: This is a 30-day cardiac event monitor. Predominant rhythm is sinus with first- degree AV block. Average heart rate overall was 71. Mobitz 1 second-degree AV block was noted as well as periods of 2-1 AV block with effective heart rate of 28-30. The instances of 2-1 AV block were read by the computer as Mobitz 2 Atrial fibrillation was present less than 1% of the time with a heart rate of 70, asymptomatic PVCs were noted. There were at least 5 runs of nonsustained ventricular tachycardia, longest of which lasted 7 seconds. These were not escape rhythms There was one 3-second pause
== END 2022-11-19 08:40 | disposition home or self-care (01) ==
LOC: CARDOPNVT 08:39
PROVIDERS: PCP Internal Medicine; Visit Provider Internal Medicine Cardiovascular Disease
DX: I44.1 Atrioventricular block, second degree (principal); I48.91 Unspecified atrial fibrillation
CPT/HCPCS: 93272

== ENCOUNTER → 2022-12-16 14:05 | Outpatient (BNVA) | payer MEDICARE, SELFPAY | PROVIDERS: PCP Internal Medicine; Referring Provider Internal Medicine; Visit Provider Psychiatry & Neurology Neurology | DX: I69.318 Other symptoms and signs involving cognitive functions following cerebral infarction (principal); I69.331 Monoplegia of upper limb following cerebral infarction affecting right dominant side; Z79.01 Long term (current) use of anticoagulants; I48.0 Paroxysmal atrial fibrillation; G25.0 Essential tremor; I69.398 Other sequelae of cerebral infarction; M79.2 Neuralgia and neuritis, unspecified; I10 Essential (primary) hypertension; E11.42 Type 2 diabetes mellitus with diabetic polyneuropathy | CPT/HCPCS: 99215 ==

== ENCOUNTER 2022-12-17 12:32 | Outpatient (REF) | payer MEDICARE, SELFPAY ==
[2022-12-17 14:34] LABS: Abs Immature Grans 0.03 10^3/uL (0.0-0.06); Absolute Basophil Count 0.09 10^3/uL (0.0-0.2); Absolute Eosinophil Count 0.54 10^3/uL (0.0-0.7); Absolute Lymphocyte Count 2.55 10^3/uL (1.2-3.4); Absolute Monocyte Count 0.62 10^3/uL (0.1-0.8); Absolute Neutrophil Count 5.08 10^3/uL (1.2-6.7); Eosinophils % 6.1; HCT 31.8 % (36.0-46.0); HGB 9.7 g/dL (11.2-15.7); Immature Grans % 0.3; Lymphocytes % 28.6; MCH 25.3 pg (27.0-33.0); MCHC 30.5 % (32.0-36.0); MCV 83 fL (80-95); Platelet Count 567 10^3/uL (130-400); RBC 3.83 10^6/uL (3.93-5.22); RDW 15.9 % (11.7-14.6); WBC 8.91 10^3/uL (4.4-10.8)
== END 2022-12-17 12:33 | disposition home or self-care (01) ==
LOC: NCHCN 12:32
PROVIDERS: PCP Internal Medicine; Visit Provider Internal Medicine
DX: I25.2 Old myocardial infarction (principal); I42.2 Other hypertrophic cardiomyopathy; E11.9 Type 2 diabetes mellitus without complications; F32.9 Major depressive disorder, single episode, unspecified; D62 Acute posthemorrhagic anemia; Z87.19 Personal history of other diseases of the digestive system; Z86.79 Personal history of other diseases of the circulatory system
CPT/HCPCS: 85025

== ENCOUNTER 2022-12-18 13:33 | Outpatient (RCR) | payer MEDICARE, SELFPAY | END 2022-12-18 23:59 | disposition home or self-care (01) | LOC: CR 13:33 | PROVIDERS: PCP Internal Medicine; Visit Provider Internal Medicine Cardiovascular Disease | DX: I21.4 Non-ST elevation (NSTEMI) myocardial infarction (principal) ==

== ENCOUNTER 2023-01-01 13:53 | Outpatient (RCR) | payer MEDICARE, SELFPAY | END 2023-01-18 23:59 | disposition home or self-care (01) | LOC: CR 13:53 | PROVIDERS: PCP Internal Medicine; Visit Provider Internal Medicine Cardiovascular Disease | DX: I25.10 Atherosclerotic heart disease of native coronary artery without angina pectoris (principal); Z95.2 Presence of prosthetic heart valve; I25.2 Old myocardial infarction; Z51.89 Encounter for other specified aftercare | CPT/HCPCS: S9472 ==

== ENCOUNTER 2023-01-18 01:54 | Outpatient (RCR) | payer MEDICARE, SELFPAY ==
[2023-01-11] MEDS: Normal Saline Flush 10 ML SYR IVP (13:16)
[2023-01-11] MEDS: IRON SUCROSE COMPLEX 200 MG in Normal Saline 100 ML 440 MG IVPB (13:16)
[2023-01-18] MEDS: IRON SUCROSE COMPLEX 200 MG in Normal Saline 100 ML 440 MG IVPB (13:25)
[2023-01-18] MEDS: Normal Saline Flush 10 ML SYR IVP (13:26)
== END 2023-01-18 23:59 | disposition home or self-care (01) ==
LOC: INF 01:54
PROVIDERS: PCP Internal Medicine; Visit Provider Nurse Practitioner Acute Care
DX: D50.9 Iron deficiency anemia, unspecified (principal)
CPT/HCPCS: 96365; J1756

== ENCOUNTER 2023-01-25 02:24 | Outpatient (RCR) | payer MEDICARE, SELFPAY ==
[2023-01-25] MEDS: IRON SUCROSE COMPLEX 200 MG in Normal Saline 100 ML 440 MG IVPB (13:21)
[2023-01-25] MEDS: Normal Saline Flush 10 ML SYR IVP (13:21)
== END 2023-02-18 23:59 | disposition home or self-care (01) ==
LOC: INF 02:24
PROVIDERS: PCP Internal Medicine; Visit Provider Nurse Practitioner Acute Care
DX: D50.9 Iron deficiency anemia, unspecified (principal)
CPT/HCPCS: 96365; J1756

== ENCOUNTER → 2023-03-04 01:50 | Outpatient (CLI) | payer MEDICARE, SELFPAY ==
--- NOTE | 2023-03-04 13:02 | DI.RAD_ITS ---
Exam(s) XR CHEST 2V PA LATERAL EXAM: XR CHEST 2V PA LATERAL CLINICAL HISTORY: SOB WITH EXERTION, TECHNIQUE: 2D digital imaging was performed. COMPARISON: CR,XR XR PORTABLE CHEST AP from 11/10/2022 FINDINGS: HEART: Normal size. Aorta: Not dilated. PULMONARY VASCULATURE: Normal. LUNGS: Moderately enlarged, unchanged. PLEURAL SPACE: No pleural effusion or pneumothorax. BONE:Unremarkable for age. IMPRESSION: No acute abnormality. DATA REPOSITORY: RADIATION DOSE DELIVERED:
== END ==
PROVIDERS: PCP Internal Medicine; Visit Provider Nurse Practitioner Family
DX: I50.32 Chronic diastolic (congestive) heart failure (principal)
CPT/HCPCS: 71046

== ENCOUNTER 2023-03-04 02:25 | Outpatient (CLI) | payer MEDICARE, SELFPAY ==
[2023-03-04 12:41] LABS: HCT 42.2 % (36.0-46.0); HGB 13.1 g/dL (11.2-15.7); MCH 24.2 pg (27.0-33.0); MCV 78 fL (80-95); MPV 9.8 fL (8.0-11.0); Platelet Count 354 10^3/uL (130-400); RBC 5.42 10^6/uL (3.93-5.22); RDW-SD 64.3 fL; WBC 7.23 10^3/uL (4.4-10.8)
[2023-03-04 13:45] LABS: ALT 26 U/L (14-59); AST 17 U/L (15-37); Albumin 3.8 g/dL (3.4-5.0); Alkaline Phosphatase 62 U/L (46-116); Anion Gap 7.7 mmol/L (3-11); BUN 21 mg/dL (7-18); Bilirubin, Total 0.4 mg/dL (0.2-1.0); CO2 25.3 mmol/L (21.0-32.0); CREATININE 1.3 mg/dL (0.55-1.02); Calcium 10.2 mg/dL (8.5-10.1); Chloride 104 mmol/L (98-107); Estimated GFR 44.24 (mL/min/1.73m2); Glucose 274 mg/dL (74-106); NT-proBNP 1079 pg/mL (<300); Potassium 4.4 mmol/L (3.5-5.1); Sodium 137 mmol/L (136-145); Total Protein 7.1 g/dL (6.4-8.2)
[2023-03-04 13:48] LABS: RDW 23.6 % (11.7-14.6)
== END 2023-03-04 02:26 | disposition home or self-care (01) ==
LOC: LBO 02:25
PROVIDERS: PCP Internal Medicine; Visit Provider Nurse Practitioner Family
DX: I50.32 Chronic diastolic (congestive) heart failure (principal)
CPT/HCPCS: 36415; 80053; 85027; 83880

== ENCOUNTER 2023-04-12 14:22 | Outpatient (REF) | payer MEDICARE, SELFPAY ==
[2023-04-12 17:04] LABS: HCT 44.5 % (36.0-46.0); HGB 14.3 g/dL (11.2-15.7); MCHC 32.1 % (32.0-36.0); MCV 78 fL (80-95); MPV 10.5 fL (8.0-11.0); Platelet Count 373 10^3/uL (130-400); RBC 5.72 10^6/uL (3.93-5.22); RDW 21.5 % (11.7-14.6); RDW-SD 60.5 fL; WBC 10.11 10^3/uL (4.4-10.8)
[2023-04-12 17:17] LABS: Anion Gap 12.9 mmol/L (3-11); BUN 28 mg/dL (7-18); CO2 23.1 mmol/L (21.0-32.0); CREATININE 1.1 mg/dL (0.55-1.02); Calcium 10.9 mg/dL (8.5-10.1); Chloride 104 mmol/L (98-107); Estimated GFR 54.06 (mL/min/1.73m2); Glucose 201 mg/dL (74-106); Potassium 3.9 mmol/L (3.5-5.1); Sodium 140 mmol/L (136-145)
[2023-04-13 13:18] LABS: Iron 56 ug/dL (50-170)
== END 2023-04-12 14:23 | disposition home or self-care (01) ==
LOC: NCHCN 14:22
PROVIDERS: PCP Internal Medicine; Visit Provider Internal Medicine
DX: R42 Dizziness and giddiness (principal); R71.8 Other abnormality of red blood cells; R06.09 Other forms of dyspnea; L27.0 Generalized skin eruption due to drugs and medicaments taken internally; Z87.19 Personal history of other diseases of the digestive system
CPT/HCPCS: 80048; 85027; 83540

== ENCOUNTER 2023-04-16 11:57 | Outpatient (REF) | payer MEDICARE, SELFPAY ==
[2023-04-17 08:18] LABS: Calcium Urine 3.9 mg/dL (See Note); Calcium Urine 24 hr 57 mg/24hr (100-300); Timed Urine Volume 1450 mL
== END 2023-04-16 11:58 | disposition home or self-care (01) ==
LOC: NCHCN 11:57
PROVIDERS: PCP Internal Medicine; Visit Provider Internal Medicine
DX: E21.3 Hyperparathyroidism, unspecified (principal)
CPT/HCPCS: 81050; 82340

== ENCOUNTER 2023-04-22 19:19 | Outpatient (REF) | payer MEDICARE, SELFPAY | END 2023-04-22 19:20 | disposition home or self-care (01) | LOC: NCHCN 19:19 | PROVIDERS: PCP Family Medicine; Visit Provider Family Medicine | DX: R30.0 Dysuria (principal); N90.89 Other specified noninflammatory disorders of vulva and perineum | CPT/HCPCS: 87077; 87086; 87186; 87480; 87510; 87660 ==

== ENCOUNTER → 2023-05-04 00:04 | Outpatient (CLI) | payer MEDICARE, SELFPAY ==
--- NOTE | 2023-05-04 | DI.MAMMO_ITS ---
Exam(s) MAMMO SCREENING EXAM: MAMMO SCREENING CLINICAL HISTORY: Z12.31 Screening TECHNIQUE: Mammograms were interpreted according to the usual protocol including computer analysis w [id number] CAD system, tomosynthesis and C-view imaging. COMPARISON: 2014 through 2020 FINDINGS: The breasts are composed of scattered fibroglandular densities, Breast Density category B. No suspicious masses or suspicious microcalcifications are seen. No skin thickening or abnormal axillary lymph nodes are seen. There has been no significant change from prior exams. IMPRESSION: BI-RADS Category 1, Negative mammogram Yearly screening mammography is recommended. Breast Density - Category B, scattered fibroglandular densities. A negative radiographic report should not delay biopsy if a dominant or clinically suspicious mass is present. Up to ten percent of cancers are not identified on mammography. A negative report may reinforce clinical impression. Adenosis and dense breasts may obscure an underlying neoplasm. False positive reports average 6 to 10%. Patient will receive a letter notifying them of these results.
== END ==
PROVIDERS: PCP Internal Medicine; Visit Provider Internal Medicine
DX: Z12.31 Encounter for screening mammogram for malignant neoplasm of breast (principal)
CPT/HCPCS: 77063; 77067

== ENCOUNTER 2023-05-16 13:49 | Emergency (ER) | payer MEDICARE, SELFPAY ==
[2023-05-16] VITALS (23 sets, daily range): BP systolic 168; BP diastolic 85; PULSE 69–84; RESP 12–26; TEMP 36.8; O2SAT 89–96
--- NOTE | 2023-05-16 14:00 | RT.EKG_ITS ---
APPROVED REPORT Exam: Resting ECG Reason for Exam: Dizziness, weakness Patient Location: E HR:75 bpm ECG Measurements Heart Rate 75 AXIS WI 162 P 68 QRSd 135 QRS 65 QT 463 T 230 QTc 519 Conclusion Atrial-sensed ventricular-paced rhythm...ventricular pacing tracks p-waves Atrially sensed ventricularly paced rhythm at a rate of 75. Interventricular conduction delay. Norm al axis. Prolonged QTc 519 ms. Not meeting Sgarbossa criteria for ischemia nor modified Ifeanyi kingsley macie. Compared to priorQTc has lengthened. Inferior T wave inversions are new. Prior dated earlier this year.
--- NOTE | 2023-05-16 14:00 | DI.CT_ITS ---
Exam(s) CT BRAIN NECK CTA EXAM: CT BRAIN NECK CTA CLINICAL HISTORY: Difficulty walking, weakness. TECHNIQUE: Imaging Protocol: Axial CT angiography was performed with multi-slice acquisition and mu lti-planar and/or 3D reconstructions. CONTRAST MATERIAL: Intravenous: Omnipaque 350 contrast volume:85 mL COMPARISON: CT CT HEAD WO from 09/14/[address] ABDOMEN PELVIS W from 11/02/2022 FINDINGS: CT Head W/O and W: Ventricles and Extra axial spaces: Normal in size and morphology for the patient's age. Hemorrhage: None. Cerebral parenchyma: There are areas of decreased attenuation in the white matter consistent with sma ll vessel ischemic disease. No acute territorial infarct is identified. Midline shift: None. Brainstem/Cerebellum: Normal. Calvarium: Normal. Visualized Paranasal sinuses/Mastoids: Clear. Soft Tissues: Unremarkable. Enhancement: Unremarkable. CTA Neck W: Common Carotid: Right: No dissection, occlusion or significant stenosis. Left: No dissection, occlusion or significant stenosis. External Carotid: Right: No occlusion or significant stenosis. Left: No occlusion or significant stenosis. Internal Carotid: Right: No dissection, occlusion or significant stenosis. Mild atherosclerosis at the origin. Left: No dissection, occlusion or significant stenosis. Vertebral Artery: Right: No dissection, occlusion or significant stenosis. Mild atherosclerosis. Left: No dissection, occlusion or significant stenosis. Mild atherosclerosis at the origin. Lung Apices: Normal. Bones: Within normal limits for the patient's age. Soft Tissues: Normal. Thyroid gland: Unremarkable. CTA Brain W: Internal Carotid Arteries: No evidence of aneurysm, occlusion or significant stenosis. Atheroscleros is is present. Anterior Cerebral Arteries: Right: No aneurysm, occlusion or significant stenosis. Left: No aneurysm, occlusion or significant stenosis. Middle Cerebral Arteries: Right: No aneurysm, occlusion or significant stenosis. Left: No aneurysm, occlusion or significant stenosis. Posterior Cerebral Arteries: Right: No aneurysm, occlusion or significant stenosis. The right posterior communicating artery cont ributes to the development of the right [employer]PECTOR OUTS[employer] DISTRIBUTION. Left: No aneurysm, occlusion or significant stenosis. Vertebral Arteries: Right: No aneurysm, occlusion or significant stenosis. Left: No aneurysm, occlusion or significant stenosis. Basilar Artery: No aneurysm, occlusion or significant stenosis. IMPRESSION: 1. No large vessel occlusion or significant stenosis on the CT angiography of the head. 2. No acute intracranial process. 3. No occlusion or significant stenosis on the CT angiography of the neck. RADIATION DOSE DELIVERED: Total DLP DATA REPOSITORY: All CT scans at this facility are submitted to the National Radiology Data Registry (NRDR) Dose Index Registry (DIR) with the [employer] (ACR). RADIATION OPTIMIZATION: All CT scans at this facility use at least one of these dose optimization te chniques: automated exposure control; mA and/or kV adjustment per patient size (includes targeted exa ms where dose is matched to clinical indication); or iterative reconstruction.
--- NOTE | 2023-05-16 14:22 | NUR.NOTE ---
Accessed pt [facility] chart to get the model of the ICD. It is [employer]. Nursing Note:
[2023-05-16 14:25] LABS: Abs Immature Grans 0.04 10^3/uL (0.0-0.06); Absolute Basophil Count 0.05 10^3/uL (0.0-0.2); Absolute Eosinophil Count 0.12 10^3/uL (0.0-0.7); Absolute Lymphocyte Count 2.16 10^3/uL (1.2-3.4); Absolute Monocyte Count 0.64 10^3/uL (0.1-0.8); Absolute Neutrophil Count 5.11 10^3/uL (1.2-6.7); Basophils % 0.6; Eosinophils % 1.5; HCT 39.4 % (36.0-46.0); HGB 12.9 g/dL (11.2-15.7); Immature Grans % 0.5; Lymphocytes % 26.6; MCHC 32.7 % (32.0-36.0); MCV 79 fL (80-95); MPV 10.8 fL (8.0-11.0); Monocytes % 7.9; Neutrophils % 62.9; Platelet Count 331 10^3/uL (130-400); RBC 4.97 10^6/uL (3.93-5.22); RDW-SD 45.1 fL; WBC 8.12 10^3/uL (4.4-10.8)
[2023-05-16] MEDS: Normal Saline - Diluent 50 ML VIAL IJ (14:25)
[2023-05-16] MEDS: Omnipaque 350 MG/ML 100 ML BTL 85 ML IJ (14:34)
[2023-05-16 14:50] LABS: ALT 20 U/L (14-59); AST 19 U/L (15-37); Albumin 3.7 g/dL (3.4-5.0); Alkaline Phosphatase 64 U/L (46-116); Anion Gap 11.4 mmol/L (3-11); BUN 14 mg/dL (7-18); Bilirubin, Total 0.4 mg/dL (0.2-1.0); CO2 21.6 mmol/L (21.0-32.0); CREATININE 1.1 mg/dL (0.55-1.02); Calcium 10.1 mg/dL (8.5-10.1); Chloride 105 mmol/L (98-107); Estimated GFR 54.06 (mL/min/1.73m2); Glucose 284 mg/dL (74-106); Magnesium 1.6 mg/dL (1.8-2.4); Potassium 4.2 mmol/L (3.5-5.1); Sodium 138 mmol/L (136-145); Total Protein 7.2 g/dL (6.4-8.2)
[2023-05-16 14:54] LABS: Troponin I 119 ng/L (<or=60)
--- NOTE | 2023-05-16 14:59 | ED.GENADUL_ITS ---
Discharge Plan Disposition Patient Disposition: Home Condition: Improving Discharge Details Clinical Impression: Weakness Primary Care Provider: Bryant Crain ED Provider: Eli Rosario Home Meds and New Rx's Prescriptions: Continued clopidogrel 75 mg tablet 75 mg PO DAILY spironolactone 25 mg tablet 25 mg PO DAILY metoprolol tartrate 25 mg tablet 25 mg PO DAILY pantoprazole 40 mg tablet,delayed release (DR/EC) 40 mg PO DAILY cholecalciferol (vitamin D3) 25 mcg (1,000 unit) capsule 25 mcg PO DAILY cyanocobalamin (vitamin B-12) 5,000 mcg capsule 1,000 mcg PO DAILY Eliquis 5 MG tablet 5 mg PO BID Qty: 180 3RF metformin 750 mg tablet extended release 24 hr 750 mg PO BID Rx Instructions: take with Metformin 500 mg tab cetirizine [Zyrtec] 10 mg tablet 10 mg PO DAILY Repatha Syringe 140 mg/mL syringe 140 mg subcut Q2W (DME) pen needle, diabetic Needle See Rx Instructions .ROUTE .MEDSUPPLY Qty: 1 Rx Instructions: As directed magnesium oxide 400 mg (241.3 mg magnesium) tablet 400 mg PO DAILY insulin lispro [Humalog KwikPen Insulin] 100 unit/mL insulin pen See Rx Instructions subcut DIRECTED Rx Instructions: per sliding scale subcut as directed; insulin glargine [Lantus U-100 Insulin] 100 unit/mL solution 30 unit SC QHS Patient Comments: says she takes 31U in am - 09/02/21 acetaminophen [Tylenol] 325 MG tablet 650 mg PO Q4H PRN PRN (Reason: fever,pain) 0RF gabapentin 100 mg Capsule 300 mg PO BID Ozempic 2 mg/dose (8 mg/3 mL) pen injector 2 mg SUBCUT QWEEK Patient Comments: Inject 0.25 mg subcutaneously once a week gabapentin 300 mg capsule 600 mg PO HS Discharge Instructions Instructions: Weakness (ED) Additional Instructions: Resume usual medications Return for new or worsening symptoms Referrals: Bryant Crain MD [Primary Care Provider] - Discharge Data Discharge Date/Time-TO BE ENTERED AT DEPARTURE: 05/16/23 17:58 Medical Decision Making <Stephon Whittington NP - Last Filed: 05/16/23 16:34> Patient presenting to the emergency department for chief complaint of right- sided weakness. states that approximately 30 to 45 minutes prior to arrival they were walking around the store and patient started leaning to the right and dragging right leg. Patient has history of right and left-sided CVA in 2017, diabetes, hypertension, chronically anticoagulated, peripheral neuropathy, V. tach with pacemaker placement, AV block. Patient states just feeling generalized weak but denies any unilateral complaints or discomfort. Physical exam shows equal strength bilateral but slight weakness, patient reporting normal sensation bilateral with no deficit, no obvious cranial nerve findings, slightly abnormal speech but patient's states that has been improving since her stroke with no significant acute worsening. Patient denies any chest pain, new shortness of breath, headache, or other symptoms. does state that patient was recently taken off her Plavix due to allergic reaction but has remained on her Eliquis as prescribed. Given patient's past medical history and high risk for cerebrovascular event will perform stroke CT imaging, check labs, EKG, we will interrogate her pacemaker, check blood sugar and continue to monitor. I do not feel there are any emergent interventions needed at this time. Reviewed labs and CBC is overall nondiagnostic, age-adjusted D-dimer considered negative, CMP shows slightly elevated anion gap, glucose of 284, and magnesium of 1.6, initial troponin is 119 so we will repeat with delta troponin but of note patient has chronic elevated troponin in the same range on previous visits. Patient is negative for COVID flu RSV and still pending urinalysis. [employer] interrogation was performed and shows no events or abnormalities noted. Please see physician interpretation for full interpretation of EKG that shows slightly prolonged QT otherwise nondiagnostic EKG. We will give patient p.o. magnesium pending remainder of results. CT imaging shows no large vessel stenosis or occlusion, radiologist stating exam is fairly unchanged since 1 dated 6 years ago. CTA neck also is overall unremarkable. We will give patient small fluid bolus as well pending results. Lab Data Lab results reviewed: Yes I reviewed the patient's lab results. <Eli Rosario NP - Last Filed: 05/16/23 21:05> Patient presenting to the emergency department for chief complaint of right- sided weakness. states that approximately 30 to 45 minutes prior to arrival they were walking around the store and patient started leaning to the right and dragging right leg. Patient has history of right and left-sided CVA in 2017, diabetes, hypertension, chronically anticoagulated, peripheral neuropathy, V. tach with pacemaker placement, AV block. Patient states just feeling generalized weak but denies any unilateral complaints or discomfort. Physical exam shows equal strength bilateral but slight weakness, patient reporting normal sensation bilateral with no deficit, no obvious cranial nerve findings, slightly abnormal speech but patient's states that has been improving since her stroke with no significant acute worsening. Patient denies any chest pain, new shortness of breath, headache, or other symptoms. does state that patient was recently taken off her Plavix due to allergic reaction but has remained on her Eliquis as prescribed. Given patient's past medical history and high risk for cerebrovascular event will perform stroke CT imaging, check labs, EKG, we will interrogate her pacemaker, check blood sugar and continue to monitor. I do not feel there are any emergent interventions needed at this time. Reviewed labs and CBC is overall nondiagnostic, age-adjusted D-dimer considered negative, CMP shows slightly elevated anion gap, glucose of 284, and magnesium of 1.6, initial troponin is 119 so we will repeat with delta troponin but of note patient has chronic elevated troponin in the same range on previous visits. Patient is negative for COVID flu RSV and still pending urinalysis. [employer] interrogation was performed and shows no events or abnormalities noted. Please see physician interpretation for full interpretation of EKG that shows slightly prolonged QT otherwise nondiagnostic EKG. We will give patient p.o. magnesium pending remainder of results. CT imaging shows no large vessel stenosis or occlusion, radiologist stating exam is fairly unchanged since 1 dated 6 years ago. CTA neck also is overall unremarkable. We will give patient small fluid bolus as well pending results. Care of patient received from Mykel Whittington APRN chart reviewed. Troponin returns at 135. Did review results with patient and her and patient rep orting that she feels back to her baseline denies any cardiac complaints and does not want to stay for observation or to repeat troponin. She has had mildly elevated troponins in the past which are chronic this is within that baseline. Hemodynamically she has been stable and again feels at her baseline and is requesting discharge I think that this is reasonable she was advised to return sooner for new or worsening symptoms HPI <Stpehon Whittington NP - Last Filed: 05/16/23 16:34> General Date/Time Provider Initiated Documentation: 05/16/23 13:56 . Limitations to Documentation: no limitations . Information obtained by: patient, family and RN notes reviewed . History of Present Illness 72 year old F presents to the emergency department with the chief complaint of Weakness, dizziness and not feeling well, described as moderate, Patient started experiencing this minute(s) (30-45) and it has been constant. No relieving factors improve symptom(s), No exacerbating factors reported . Patient notes no other symptoms.. Patient did receive the following treatments prior to arrival, none Related Data Home Medications Medication Instructions Recorded Confirmed acetaminophen 325 mg tablet 650 mg (2 x 325 mg) PO Q4H PRN PRN 04/30/17 05/16/23 (Tylenol) fever,pain apixaban 5 mg tablet (Eliquis) 5 mg PO BID #180 tabs 09/01/17 05/16/23 cetirizine 10 mg tablet (Zyrtec) 10 mg PO DAILY 10/25/19 05/16/23 metformin 750 mg tablet,extended 750 mg PO BID 10/25/19 05/16/23 release 24 hr evolocumab 140 mg/mL subcutaneous 140 mg subcut Q2W 12/12/20 05/16/23 syringe (Repatha Syringe) magnesium oxide 400 mg (241.3 mg 400 mg PO DAILY 12/12/20 05/16/23 magnesium) tablet pen needle, diabetic ##1 12/12/20 12/16/22 insulin lispro 100 unit/mL See Rx Instructions subcut 08/04/21 05/16/23 subcutaneous pen (Humalog KwikPen DIRECTED (U-100) Insulin) cholecalciferol (vitamin D3) 25 25 mcg PO DAILY 09/02/21 05/16/23 mcg (1,000 unit) capsule cyanocobalamin (vitamin B-12) 1,000 mcg PO DAILY 02/03/22 05/16/23 5,000 mcg capsule insulin glargine 100 unit/mL 30 unit subcut QHS 02/03/22 05/16/23 subcutaneous solution (Lantus U-100 Insulin) gabapentin 100 mg capsule 300 mg PO BID 09/14/22 05/16/23 gabapentin 300 mg capsule 600 mg PO HS 11/02/22 05/16/23 semaglutide 2 mg/dose (8 mg/3 mL) 2 mg subcut QWEEK 11/02/22 05/16/23 subcutaneous pen injector (Ozempic) clopidogrel 75 mg tablet 75 mg PO DAILY 12/16/22 05/16/23 metoprolol tartrate 25 mg tablet 25 mg PO DAILY 12/16/22 05/16/23 pantoprazole 40 mg tablet,delayed 40 mg PO DAILY 12/16/22 05/16/23 release spironolactone 25 mg tablet 25 mg PO DAILY 12/16/22 05/16/23 Previous Rx's Medication Instructions Recorded acetaminophen 325 mg tablet 650 mg (2 x 325 mg) PO Q4H PRN PRN 04/30/17 (Tylenol) fever,pain apixaban 5 mg tablet (Eliquis) 5 mg PO BID #180 tabs 09/01/17 Allergies Allergy/AdvReac Type Severity Reaction Status Date / Time atenolol Allergy Mild Verified 12/16/22 14:23 ezetimibe [From Zetia] Allergy Mild Verified 12/16/22 14:23 hydroxychloroquine Allergy Mild Verified 12/16/22 14:23 [From Plaquenil] lisinopril Allergy Mild Verified 12/16/22 14:23 losartan [From Cozaar] Allergy Mild Verified 12/16/22 14:23 cephalexin Allergy Rash Verified 12/16/22 14:23 ciprofloxacin Allergy Verified 12/16/22 14:23 [place]-HLI-PoP Reductase Allergy Verified 12/16/22 14:23 Inhibitor [Bbfditc-Kzh-Gdi Reductase Inhibitor] oxycodone HCl [From Percocet] AdvReac CRAZY Verified 12/16/22 14:23 General Stated Complaint: Dizzy/Sync KATHLEEN: 2 Review of Systems <Stephon Whittington NP - Last Filed: 05/16/23 16:34> Constitutional Constitutional: Denies chills, Denies fever(s), Denies headache(s), Reports malaise and Reports weakness ENT Ears, Nose, Mouth, and Throat: Reports dizziness, Denies headache(s) and Reports disequilibrium Cardiovascular Cardiovascular: Denies chest pain, Denies syncope and Denies dyspnea Respiratory Respiratory: Denies dyspnea Gastrointestinal Gastrointestinal: Denies abdominal pain, Denies nausea and Denies vomiting Genitourinary Genitourinary: Reports system reviewed and no additional complaints, except as documented Musculoskeletal Musculoskeletal: Reports abnormal gait, Denies myalgias, Denies numbness and Denies tingling Neurologic Neurologic: Reports as per HPI, Reports abnormal gait, Reports dizziness, Denies syncope, Denies headache(s), Denies numbness, Denies tingling, Reports disequilibrium and Reports weakness PFSH <Stephon Whittington NP - Last Filed: 05/16/23 16:34> All Active Problems (Updated 05/16/23 @ 17:56 by Eli Rosario NP) Weakness (Acute) NSTEMI (non-ST elevated myocardial infarction) (Acute) Paroxysmal atrial fibrillation (Chronic) Acute blood loss anemia (Acute) Acute GI bleeding (Acute) Syncope (Chronic) Mobitz type 1 second degree AV block (Acute) Sinus pause (Acute) Elevated troponin (Acute) Bradykinesia (Acute) Memory problem (Acute) Cervical radiculopathy (Acute) Sciatica (Acute) Neuropathic pain (Acute) Tremor (Acute) Abnormal movements (Acute) Actinic keratosis (Acute) Pelvic pain in female (Acute) Squamous cell skin cancer (Acute) Recurrent UTI (urinary tract infection) (Acute) Diabetes mellitus type 2, uncontrolled, with complications (Chronic) Hyperlipidemia associated with type 2 diabetes mellitus (Acute) Hypertension associated with diabetes (Chronic) ESE (acute kidney injury) (Acute) Pain in right lower leg (Acute) Medical History Hyperlipidemia Acne rosacea Hypertension Type 2 diabetes mellitus Allergic rhinitis Intermittent asthma Adequate 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 on anticoagulant therapy Myalgia Diarrhea Overflow incontinence Hypercalcemia H/O urinary frequency Urinary incontinence Carcinoma of skin Reactive depression Adjustment disorder with mixed anxiety and depressed mood Diabetic peripheral neuropathy Microalbuminuria Hyperparathyroidism Atypical chest pain History of CVA (cerebrovascular accident) Granulomatous disorder of the skin and subcutaneous tissue, unspecified Mixed stress and urge urinary incontinence History of kidney stones CVA (cerebral vascular accident) Peripheral neuropathy Asthma Urge urinary incontinence Weakness of foot Allergic to IV contrast Left acute arterial ischemic stroke, MCA (middle cerebral artery) Surgical History Hx of colonoscopy bladder repair,open Abdominal hysterectomy Family History Other Diabetes Hyperlipidemia Hypertension Social History Smoking/Tobacco Use Status: Never Smoking risk assessment performed?: Yes Alcohol Intake: never Drug use: Never Substance use type: does not use Household members: spouse Housing: house Number of Children: 3 number of grandchildren: 7 Pets and animals: No Current gender identity: female What is your relationship status?: Panel score (0-1 are the most socially isolated patients): 1 What type of physical activity do you participate in: swimming Seatbelt use: always Do you feel safe at home: Yes Do you feel safe in your relationship?: Yes Additional Social history: Lives in [place] with her . Grew up in [place]. Exam <Stephon Whittington NP - Last Filed: 05/16/23 16:34> Const General: cooperative, no acute distress and well groomed Orientation: alert, awake and oriented x3 HENMT Head: normal to inspection Ears: hearing grossly normal bilaterally and TM's normal bilaterally Mouth: oral mucosae normal and moist mucous membranes Throat: posterior oropharynx normal Eyes Visual Johnson: normal visual johnson by confrontation Alignment and Position: alignment normal Periorbital: periorbital findings normal Eyelids: eyelids normal Sclera: sclerae normal Pupils: PERRL EOM: EOM intact bilaterally Neck Neck: normal visual inspection, full ROM and no meningeal signs Resp Effort & Inspection: normal respiratory effort and able to speak in complete sentences Auscultation: clear to auscultation bilaterally Cardio Rate: regular rate Rhythm: regular rhythm Heart Sounds: S1 normal and S2 normal Neuro General: patient alert, patient awake, patient oriented x3, tone normal, moves all extremities, CN's II-XI intact bilaterally and not confused Cognition: normal cognition Speech: speech normal Motor: muscle tone normal throughout, strength not 5/5 throughout (General weakness 3-4 out of 5 throughout), no pronator drift, no movement abnormalities noted and no fasciculations Sensory Exam: no sensory deficits noted Coordination: Does not sway with eyes open, rapid alternating movement UE normal and rapid alternating movement LE normal Course <Stephon Whittington NP - Last Filed: 05/16/23 16:34> Vital Signs Vital signs: Vital Signs Temperature 36.8 C 05/16/23 13:53 Pulse 84 05/16/23 13:53 Respiratory Rate 16 05/16/23 13:53 Blood Pressure 168/85 H 05/16/23 13:53 Pulse Oximetry 95 05/16/23 13:53 Temperature 36.8 C 05/16/23 13:53 Temperature Source Oral 05/16/23 13:53 Pulse 84 05/16/23 13:53 Respiratory Rate 16 05/16/23 13:53 Blood Pressure 168/85 H 05/16/23 13:53 Blood Pressure Position Sitting 05/16/23 13:53 Pulse Oximetry 95 05/16/23 13:53 Oxygen Delivery Method Room Air 05/16/23 13:53 Oxygen Flow Rate 0 05/16/23 13:53 Lab/Test Results Lab/Test Results: Laboratory Tests Range/Units 05/16/23 14:00 WBC (4.4-10.8) 10^3/uL 8.12 RBC (3.93-5.22) 10^6/uL 4.97 Hgb (11.2-15.7) g/dL 12.9 Hct (36.0-46.0) % 39.4 MCV (80-95) fL 79 L MCH (27.0-33.0) pg 26.0 L MCHC (32.0-36.0) % 32.7 RDW (11.7-14.6) % 16.0 H Plt Count (130-400) 10^3/uL 331 MPV (8.0-11.0) fL 10.8 Immature Gran % 0.5 Neutrophils % 62.9 Lymphocytes % 26.6 Monocytes % 7.9 Eosinophils % 1.5 Basophils % 0.6 Nucleated RBC % (0.0-0.3) % 0.0 Absolute Neutrophils (1.2-6.7) 10^3/uL 5.11 Absolute Lymphocytes (1.2-3.4) 10^3/uL 2.16 Absolute Monocytes (0.1-0.8) 10^3/uL 0.64 Absolute Eosinophils (0.0-0.7) 10^3/uL 0.12 Absolute Basophils (0.0-0.2) 10^3/uL 0.05 Sodium (136-145) mmol/L 138 Potassium (3.5-5.1) mmol/L 4.2 Chloride (98-107) mmol/L 105 Carbon Dioxide (21.0-32.0) mmol/L 21.6 Anion Gap (3-11) mmol/L 11.4 H BUN (7-18) mg/dL 14 Creatinine (0.55-1.02) mg/dL 1.1 H Est GFR (CKD-EPI 2020) (mL/min/1.73m2) 54.06 Glucose (74-106) mg/dL 284 H Calcium (8.5-10.1) mg/dL 10.1 Magnesium (1.8-2.4) mg/dL 1.6 L Total Bilirubin (0.2-1.0) mg/dL 0.4 AST (15-37) U/L 19 ALT (14-59) U/L 20 Alkaline Phosphatase (46-116) U/L 64 Troponin I (<or=60) ng/L 119 H* Total Protein (6.4-8.2) g/dL 7.2 Albumin (3.4-5.0) g/dL 3.7 Sign Out <Stephon Whittington NP - Last Filed: 05/16/23 16:34> Sign Out Data: Sign Out Comment: Patient signed out pending second troponin, reassessment, and ambulatory trial. Patient getting small fluid bolus pending remaining results. Last updated by Stephon Whittington NP at 05/16/23 16:18
[2023-05-16 15:01] LABS: COVID-19 PCR Negative (Negative); Influenza A PCR Negative (Negative); Influenza B PCR Negative (Negative); RSV PCR Negative (Negative)
[2023-05-16 15:02] LABS: Source Nasopharynx
--- NOTE | 2023-05-16 15:04 | DI.VRAD_ITS ---
PROCEDURE INFORMATION: Exam: CTA Head With Contrast, Arteriography Exam date and time: 05/16/2023 2:11 PM Age: 72 years old Clinical indication: Weakness TECHNIQUE: Imaging protocol: Computed tomographic angiography of the head with contrast. Exam focused on the arteries. 3D rendering (Not supervised by radiologist): MIP and/or 3D reconstructed images were created by the technologist. Contrast material: OMNIPAQUE 350; Contrast volume: 100 ml; Contrast route: INTRAVENOUS (IV); COMPARISON: CTA BRAIN AND NECK 05/05/2017 8:24 AM FINDINGS: ANTERIOR CIRCULATION: Right internal carotid artery: Intracranial segment is patent with no significant stenosis. No aneurysm. Redemonstrated is calcification within the cavernous portion without significant stenosis. Right middle cerebral artery: No occlusion or significant stenosis. No aneurysm. Right anterior cerebral artery: No occlusion or significant stenosis. No aneurysm. Left internal carotid artery: Intracranial segment is patent with no significant stenosis. No aneurysm. Similar to the right side there is calcification within the cavernous portion of the stenosis. Left middle cerebral artery: No occlusion or significant stenosis. No aneurysm. Left anterior cerebral artery: No occlusion or significant stenosis. No aneurysm. POSTERIOR CIRCULATION: Right vertebral artery: No occlusion or significant stenosis. No aneurysm. Redemonstrated is the balanced contribution from the posterior communicating and the vertebral artery. Left vertebral artery: No occlusion or significant stenosis. No aneurysm. Basilar artery: No occlusion or significant stenosis. No aneurysm. Right posterior cerebral artery: No occlusion or significant stenosis. No aneurysm. Left posterior cerebral artery: No occlusion or significant stenosis. No aneurysm. Brain: No definite mass, mass effect, or midline shift. Mild periventricular white matter lucency consistent with microangiopathy. Cerebral ventricles: No ventriculomegaly. Bones/joints: Unremarkable. No acute fracture. Soft tissues: Unremarkable. IMPRESSION: 1. No large vessel stenosis or occlusion. 2. Mild narrowing of the distal internal carotid arteries no occlusion. The exam is unchanged since the performed six years ago. PROCEDURE INFORMATION: Exam: CTA Neck With Contrast Exam date and time: 05/16/2023 2:11 PM Age: 72 years old Clinical indication: Weakness TECHNIQUE: Imaging protocol: Computed tomographic angiography of the neck with contrast. Exam focused on the cervical segments of the vasculature. 3D rendering (Not supervised by radiologist): MIP and/or 3D reconstructed images were created by the technologist. Contrast material: OMNIPAQUE 350; Contrast volume: 100 ml; Contrast route: INTRAVENOUS (IV); COMPARISON: CTA BRAIN AND NECK 05/05/2017 8:24 AM FINDINGS: Right common carotid artery: No stenosis. No dissection or occlusion. Right internal carotid artery: No stenosis of the extracranial segment. No dissection or occlusion. Right external carotid artery: No occlusion or stenosis of the origin. Left common carotid artery: No stenosis. No dissection or occlusion. Left internal carotid artery: No stenosis of the extracranial segment. No dissection or occlusion. Left external carotid artery: No occlusion or stenosis of the origin. Right vertebral artery: No stenosis. No dissection or occlusion. Left vertebral artery: No stenosis. No dissection or occlusion. Soft tissues: Normal. No significant soft tissue swelling. Bones/joints: No acute fracture. Lungs: Redemonstrated is mosaic attenuation consistent with small airways disease. No lobar consolidations. IMPRESSION: No stenosis or occlusion. REFERENCES: NASCET CRITERIA. The degree of stenosis in the cervical segment of the internal carotid artery is based on NASCET criteria. Normal is no stenosis. Mild is less than 50% stenosis. Moderate is 50-69% stenosis. Severe is 70% to 99% stenosis. Total occlusion is no detectable patent lumen. Dictated and Authenticated by: Ron Marcelino MD. Ordering:CHIRAG Szymanski MD
[2023-05-16 15:06] LABS: D-Dimer 542 ng/mlFEU (<500)
[2023-05-16] MEDS: Magnesium Oxide 400 MG TAB PO (16:08)
[2023-05-16] MEDS: Normal Saline 500 ML IV (16:09)
[2023-05-16 16:11] LABS: Bilirubin Negative (Negative); Blood Negative (Negative); Clarity Clear (Clear); Glucose 250 mg/dL (Negative); Ketones Negative (Negative); Leukocyte Esterase Negative (Negative); Nitrite Negative (Negative); Specific Gravity 1.015 (1.005-1.025); Urobilinogen 0.2 mg/dL (Up to 0.2)
[2023-05-16 16:21] LABS: RBC Negative HPF (0-2)
[2023-05-16 16:22] LABS: Bacteria Rare HPF (Negative); C & S Indicated? Yes; Casts 0-2 Coarse Granular LPF (Negative); Crystals Negative HPF (Negative); Epithelial Cells Few HPF (Negative); Mucus Trace (Negative)
--- NOTE | 2023-05-16 16:45 | RT.EKG_ITS ---
APPROVED REPORT Exam: Resting ECG Reason for Exam: elevated Trop Patient Location: E HR:75 bpm ECG Measurements Heart Rate 75 AXIS CA 164 P 147 QRSd 134 QRS 145 QT 460 T -50 QTc 515 Conclusion Atrial-sensed ventricular-paced rhythm...ventricular pacing tracks p-waves narrow complex, normal axis, LBBB
[2023-05-16 17:21] LABS: Troponin I 135 ng/L (<or=60)
--- NOTE | 2023-05-18 08:35 | NUR.NOTE ---
Accessed Pt chart to list the antibiotics prescribed for treatment. However there was none prescribed. Note was made on the results sheet and put on the cultures clip board for a provider to take note.
--- NOTE | 2023-05-20 16:56 | ED.FU.B_ITS ---
Follow Up Plan: macrobid and urology referral
--- NOTE | 2023-05-20 16:56 | W.ED.FU ---
Follow Up Plan: macrobid and urology referral
--- NOTE | 2023-05-20 16:58 | NUR.NOTE ---
Referral faxed to [facility] for recurrent UTI, to be seen YRIS. Nursing Note:
== END 2023-05-16 17:58 | disposition home or self-care (01) ==
PROVIDERS: Nurse Practitioner Family; Emergency Provider Nurse Practitioner Acute Care; PCP Internal Medicine
DX: R53.1 Weakness (principal); R42 Dizziness and giddiness; E11.65 Type 2 diabetes mellitus with hyperglycemia; E11.42 Type 2 diabetes mellitus with diabetic polyneuropathy; I10 Essential (primary) hypertension; R94.31 Abnormal electrocardiogram [ECG] [EKG]; Z86.73 Personal history of transient ischemic attack (TIA), and cerebral infarction without residual deficits; Z79.01 Long term (current) use of anticoagulants; Z79.4 Long term (current) use of insulin; Z95.0 Presence of cardiac pacemaker
CPT/HCPCS: 70496; 70498; 80053; 82962; 87077; 87637; 93005; 96361; 99285; 81003; 81015; 83735; 84484; 85025; 85379; 87086; 87186; 93010; 99284; J3490

== ENCOUNTER 2023-05-20 13:52 | Outpatient (RCR) | payer MEDICARE, SELFPAY | END 2023-05-20 23:59 | disposition home or self-care (01) | LOC: CR 13:52 | PROVIDERS: PCP Internal Medicine; Visit Provider Internal Medicine Cardiovascular Disease | DX: I51.7 Cardiomegaly (principal) ==

== ENCOUNTER → 2023-05-25 08:01 | Outpatient (BNVA) | payer MEDICARE, SELFPAY | PROVIDERS: PCP Internal Medicine; Referring Provider Internal Medicine; Visit Provider Nurse Practitioner Gerontology | DX: N39.46 Mixed incontinence (principal); Z87.440 Personal history of urinary (tract) infections | CPT/HCPCS: 51798; 99214 ==

== ENCOUNTER 2023-06-04 15:05 | Outpatient (REF) | payer MEDICARE, SELFPAY ==
[2023-06-04 14:15] LABS: Bilirubin Negative (Negative); Blood Negative (Negative); Clarity Sl Cloudy (Clear); Glucose 500 mg/dL (Negative); Ketones Negative (Negative); Leukocyte Esterase Negative (Negative); Nitrite Negative (Negative); Specific Gravity 1.025 (1.005-1.025); Urobilinogen 0.2 mg/dL (Up to 0.2); pH 5.5 (5-8)
[2023-06-04 14:20] LABS: Bacteria Rare HPF (Negative); Casts 0-2 Hyaline LPF (Negative); Crystals Rare Calcium Oxalate HPF (Negative); Epithelial Cells Moderate HPF (Negative); Mucus Negative (Negative); RBC Negative HPF (0-2); WBC Negative HPF (0-5)
[2023-06-04 16:05] LABS: C & S Indicated? C&S Done As Ordered
== END 2023-06-04 15:06 | disposition home or self-care (01) ==
LOC: NCHCN 15:05
PROVIDERS: PCP Internal Medicine; Visit Provider Nurse Practitioner Gerontology
DX: N39.0 Urinary tract infection, site not specified (principal); R82.89 Other abnormal findings on cytological and histological examination of urine
CPT/HCPCS: 81003; 81015; 87086

== ENCOUNTER → 2023-06-08 11:31 | Outpatient (BNVA) | payer MEDICARE, SELFPAY | PROVIDERS: PCP Internal Medicine; Visit Provider Psychiatry & Neurology Neurology | DX: R25.1 Tremor, unspecified (principal); M79.2 Neuralgia and neuritis, unspecified; R25.8 Other abnormal involuntary movements; I25.2 Old myocardial infarction; Z86.73 Personal history of transient ischemic attack (TIA), and cerebral infarction without residual deficits; R41.3 Other amnesia | CPT/HCPCS: 99215 ==

== ENCOUNTER 2023-06-09 09:18 | Outpatient (RCR) | payer MEDICARE, SELFPAY | END 2023-06-20 23:59 | disposition home or self-care (01) | LOC: CR 09:18 | PROVIDERS: PCP Internal Medicine; Visit Provider Internal Medicine Cardiovascular Disease | DX: I42.9 Cardiomyopathy, unspecified (principal); Z51.89 Encounter for other specified aftercare | CPT/HCPCS: S9472 ==

== ENCOUNTER 2023-07-16 09:00 | Outpatient (RCR) | payer MEDICARE, SELFPAY | END 2023-07-21 23:59 | disposition home or self-care (01) | LOC: CR 09:00 | PROVIDERS: PCP Internal Medicine; Visit Provider Internal Medicine Cardiovascular Disease | DX: I50.23 Acute on chronic systolic (congestive) heart failure (principal); Z51.89 Encounter for other specified aftercare | CPT/HCPCS: S9472 ==

== ENCOUNTER 2023-07-23 14:41 | Outpatient (CLI) | payer MEDICARE, SELFPAY ==
[2023-07-23 15:06] LABS: Abs Immature Grans 0.02 10^3/uL (0.0-0.06); Absolute Basophil Count 0.05 10^3/uL (0.0-0.2); Absolute Eosinophil Count 0.11 10^3/uL (0.0-0.7); Absolute Lymphocyte Count 2.42 10^3/uL (1.2-3.4); Absolute Monocyte Count 0.55 10^3/uL (0.1-0.8); Absolute Neutrophil Count 5.08 10^3/uL (1.2-6.7); Basophils % 0.6; Eosinophils % 1.3; HCT 40.1 % (36.0-46.0); HGB 13.3 g/dL (11.2-15.7); Immature Grans % 0.2; Lymphocytes % 29.4; MCH 27.5 pg (27.0-33.0); MCHC 33.2 % (32.0-36.0); MCV 83 fL (80-95); MPV 10.2 fL (8.0-11.0); Monocytes % 6.7; Neutrophils % 61.8; Platelet Count 307 10^3/uL (130-400); RBC 4.83 10^6/uL (3.93-5.22); RDW 15.5 % (11.7-14.6); RDW-SD 47.3 fL; WBC 8.23 10^3/uL (4.4-10.8)
[2023-07-23 15:19] LABS: Hemoglobin A1C 9.3 % (<5.7)
[2023-07-23 15:25] LABS: ALT 24 U/L (14-59); AST 13 U/L (15-37); Albumin 3.8 g/dL (3.4-5.0); Alkaline Phosphatase 53 U/L (46-116); Anion Gap 8.6 mmol/L (3-11); BUN 20 mg/dL (7-18); Bilirubin, Total 0.4 mg/dL (0.2-1.0); CO2 26.4 mmol/L (21.0-32.0); CREATININE 1.1 mg/dL (0.55-1.02); Calcium 10.7 mg/dL (8.5-10.1); Chloride 105 mmol/L (98-107); Estimated GFR 53.72 (mL/min/1.73m2); Glucose 273 mg/dL (74-106); Potassium 4.5 mmol/L (3.5-5.1); Sodium 140 mmol/L (136-145)
== END 2023-07-23 14:42 | disposition home or self-care (01) ==
PROVIDERS: PCP Internal Medicine; Visit Provider Family Medicine
DX: E11.9 Type 2 diabetes mellitus without complications (principal); R42 Dizziness and giddiness
CPT/HCPCS: 36415; 80053; 83036; 85025

== ENCOUNTER 2023-08-16 09:00 | Outpatient (RCR) | payer MEDICARE, SELFPAY | END 2023-08-19 23:59 | disposition home or self-care (01) | LOC: CR 09:00 | PROVIDERS: PCP Family Medicine; Visit Provider Internal Medicine Cardiovascular Disease | DX: I51.7 Cardiomegaly (principal); Z51.89 Encounter for other specified aftercare | CPT/HCPCS: S9472 ==

== ENCOUNTER 2023-08-23 09:13 | Outpatient (RCR) | payer MEDICARE, SELFPAY | END 2023-09-19 23:59 | disposition home or self-care (01) | LOC: CR 09:13 | PROVIDERS: PCP Family Medicine; Visit Provider Internal Medicine Cardiovascular Disease | DX: I50.23 Acute on chronic systolic (congestive) heart failure (principal); Z51.89 Encounter for other specified aftercare | CPT/HCPCS: S9472 ==

== ENCOUNTER → 2023-09-08 13:30 | Outpatient (BNVA) | payer MEDICARE, SELFPAY | PROVIDERS: PCP Family Medicine; Referring Provider Internal Medicine; Visit Provider Nurse Practitioner Gerontology | DX: N39.0 Urinary tract infection, site not specified (principal) | CPT/HCPCS: 51798; 99213 ==

== ENCOUNTER 2023-09-17 09:09 | Outpatient (RCR) | payer MEDICARE, SELFPAY | END 2023-09-19 23:59 | disposition home or self-care (01) | LOC: CR 09:09 | PROVIDERS: PCP Family Medicine; Visit Provider Internal Medicine Cardiovascular Disease | DX: I50.23 Acute on chronic systolic (congestive) heart failure (principal); Z51.89 Encounter for other specified aftercare | CPT/HCPCS: S9472 ==

== ENCOUNTER 2023-10-06 09:00 | Outpatient (RCR) | payer MEDICARE, SELFPAY | END 2023-10-19 23:59 | disposition home or self-care (01) | LOC: CR 09:00 | PROVIDERS: PCP Family Medicine; Visit Provider Internal Medicine Cardiovascular Disease | DX: I50.23 Acute on chronic systolic (congestive) heart failure (principal); Z51.89 Encounter for other specified aftercare | CPT/HCPCS: S9472 ==

== ENCOUNTER 2023-11-17 11:00 | Outpatient (RCR) | payer SELFPAY ==
[2023-10-20 00:33] VITALS: BP 136/76; PULSE 75
[2023-10-20 11:13] VITALS: BP 150/72; PULSE 74
[2023-11-03 13:04] VITALS: BP 130/69; PULSE 60
[2023-11-05 11:30] VITALS: BP 152/87; PULSE 70
== END 2023-11-19 23:59 | disposition home or self-care (01) ==
LOC: CR 11:00
PROVIDERS: PCP Family Medicine; Visit Provider Internal Medicine Cardiovascular Disease
DX: R69 Illness, unspecified (principal)

== ENCOUNTER 2023-11-28 18:25 | Observation (INO) | payer MEDICARE, SELFPAY ==
[2023-11-28] VITALS (26 sets, daily range): BP systolic 154–187; BP diastolic 69–93; PULSE 59–73; RESP 11–28; TEMP 36.9; O2SAT 90–97
--- NOTE | 2023-11-28 18:15 | RT.EKG_ITS ---
APPROVED REPORT Exam: Resting ECG Reason for Exam: dizziness Patient Location: E HR:75 bpm ECG Measurements Heart Rate 75 AXIS AL 168 P 50 QRSd 128 QRS 63 QT 428 T 224 QTc 479 Conclusion Ventricular-paced complexes...other complexes also detected Left bundle branch block...QRSd>120, broad/notched R
--- NOTE | 2023-11-28 18:36 | DI.CT_ITS ---
Exam(s) CT BRAIN NECK CTA EXAM: CT BRAIN NECK CTA CLINICAL HISTORY: 1800 onset: ISAACS + dizzy with lower leg numbness. TECHNIQUE: Imaging Protocol: Axial CT angiography was performed with multi-slice acquisition and mu lti-planar and/or 3D reconstructions. CONTRAST MATERIAL: Intravenous: Omnipaque 350 Contrast volume:structured data in ml COMPARISON: CT CT BRAIN NECK CTA from 05/16/2023 FINDINGS: CTA Neck W: Aortic arch anatomy: The aortic arch anatomy is conventional and there is no significant stenosis at the origin of the great vessels off of the aortic arch. No intimal flap evident. Anterior circulation: Both common carotid arteries ascend with normal luminal diameters. At the level the carotid bulbs and proximal internal carotid arteries there is minimal plaque without hemodynamically significant stenosis evident. Both internal carotid arteries are demonstrated to be patent in the upper neck and skull base-carotid canals. Posterior circulation: Both vertebral arteries originate in conventional fashion off of the subclavian arteries and there is no obvious stenosis at the origin of the vertebral arteries. Both vertebral arteries exhibit normal luminal diameters within the foramen transversarium. No signi ficant stenosis nor dissection. Near the skull base there is some calcified mural plaque in both vertebral arteries but without tight stenosis at these levels. Both vertebral arteries contribute to the formation of the basilar artery at the skull base. CTA Brain W: Anterior circulation: Both internal carotid arteries are patent in the skull base-carotid canals as well as within the cave rnous sinuses. The supraclinoid aspects of the ICAs are patent. Both A1 segments are patent as are the anterior cer ebral arteries and there is no evidence of aneurysm at the level of the anterior communicating artery . Both middle cerebral arteries are patent with no evidence of significant stenosis nor intraluminal th rombus. There also no aneurysms of these vessels. Posterior circulation: The basilar artery ascends in the midline. Distally it gives off patent bilateral superior cerebella r arteries. Above this level the basilar artery terminates as patent bilateral posterior cerebral arteries. Ther e is also posterior communicating artery on the right side of the hqsvfn-wh-Ijikkb. There is no evidence of aneurysm at the tip of the basilar artery nor elsewhere in the hsyiyz-pv-Heyu is. CT BRAIN: There is no evidence of intracranial hemorrhage, mass effect, or shift of midline structures. There are no extra-axial fluid collections. Ventricles are not enlarged or shifted. There are no ring enh ancing lesions in the brain and no abnormal meningeal enhancement. Again noted is abundant bilateral periventricular hypodensity consistent with chronic small vessel di sease. IMPRESSION: 1. Patent carotid arteries in the neck. No hemodynamically significant stenosis. 2. Patent vertebral arteries. Some calcified plaque is noted in both vertebral arteries noted the sk ull base but no tight stenosis at this levels. Also no evidence of vertebral artery dissection. 3. Patent intracranial arteries. Also no aneurysms. 4. Abundant bilateral periventricular hypodensity consistent with chronic small vessel disease again noted. 5. If clinically indicated follow-up MRI with diffusion imaging can be performed for added sensitivit y/specificity. RADIATION DOSE DELIVERED: 1,890.59mGy.cm Total DLP DATA REPOSITORY: All CT scans at this facility are submitted to the National Radiology Data Registry (NRDR) Dose Index Registry (DIR) with the [employer] (A[employer]). RADIATION OPTIMIZATION: All CT scans at this facility use at least one of these dose optimization te chniques: automated exposure control; mA and/or kV adjustment per patient size (includes targeted exa ms where dose is matched to clinical indication); or iterative reconstruction.
--- NOTE | 2023-11-28 18:38 | DI.RAD_ITS ---
Exam(s) XR CHEST 1V IN DI DEPT EXAM: XR CHEST 1V IN DI DEPT CLINICAL HISTORY: r/o CVA vs TIA. TECHNIQUE: 2D digital imaging was performed. COMPARISON: CR XR CHEST 2V PA LATERAL from 03/04/2023 FINDINGS: Single AP portable view. There has been interval placement of a left subclavian pacemaker with lead tips in RA and right ventr icle. Heart size is upper normal. The mediastinum is not widened. Lungs are clear. No infiltrates nor obvious pleural effusions. IMPRESSION: No acute pulmonary findings on this single AP portable view of the chest. Cardiac pacemaker. No pulmonary edema. No pleural effusions. DATA REPOSITORY: RADIATION DOSE DELIVERED:
[2023-11-28 18:45] LABS: Abs Immature Grans 0.02 10^3/uL (0.0-0.06); Absolute Basophil Count 0.06 10^3/uL (0.0-0.2); Absolute Eosinophil Count 0.33 10^3/uL (0.0-0.7); Absolute Lymphocyte Count 3.67 10^3/uL (1.2-3.4); Absolute Monocyte Count 0.75 10^3/uL (0.1-0.8); Absolute Neutrophil Count 4.56 10^3/uL (1.2-6.7); Basophils % 0.6 %; Eosinophils % 3.5 %; HGB 13.4 g/dL (11.2-15.7); Immature Grans % 0.2 %; Lymphocytes % 39.1 %; MCH 28.3 pg (27.0-33.0); MCHC 32.7 % (32.0-36.0); MCV 87 fL (80-95); MPV 10.3 fL (8.0-11.0); Neutrophils % 48.6 %; Platelet Count 280 10^3/uL (130-400); RBC 4.73 10^6/uL (3.93-5.22); RDW 13.7 % (11.7-14.6); RDW-SD 43.3 fL; WBC 9.39 10^3/uL (4.4-10.8)
--- NOTE | 2023-11-28 18:46 | ED.GENADUL_ITS ---
Discharge Plan Disposition Patient Disposition: Admit to [facility] Discharge Details Clinical Impression: Dizziness, Distal paresthesia Primary Care Provider: Elba Jett ED Provider: Fatemeh Romano Home Meds and New Rx's Prescriptions: No Action spironolactone 25 mg tablet 25 mg PO DAILY metoprolol tartrate 25 mg tablet 25 mg PO DAILY pantoprazole 40 mg tablet,delayed release (DR/EC) 40 mg PO DAILY cholecalciferol (vitamin D3) 25 mcg (1,000 unit) capsule 25 mcg PO DAILY cyanocobalamin (vitamin B-12) 5,000 mcg capsule 1,000 mcg PO DAILY gabapentin 300 mg capsule 600 mg PO BID Qty: 450 3RF Rx Instructions: 600mg BID plus an extra 300mg once daily prn pain Eliquis 5 MG tablet 5 mg PO BID Qty: 180 3RF metformin 750 mg tablet extended release 24 hr 750 mg PO BID Rx Instructions: take with Metformin 500 mg tab cetirizine [Zyrtec] 10 mg tablet 10 mg PO DAILY Repatha Syringe 140 mg/mL syringe 140 mg subcut Q2W (DME) pen needle, diabetic Needle See Rx Instructions .ROUTE .MEDSUPPLY Qty: 1 Rx Instructions: As directed magnesium oxide 400 mg (241.3 mg magnesium) tablet 400 mg PO DAILY insulin lispro [Humalog KwikPen Insulin] 100 unit/mL insulin pen See Rx Instructions subcut DIRECTED Rx Instructions: per sliding scale subcut as directed; insulin glargine [Lantus U-100 Insulin] 100 unit/mL solution 18 unit SC BID Patient Comments: says she takes 31U in am - 09/02/21 acetaminophen [Tylenol] 325 MG tablet 650 mg PO Q4H PRN PRN (Reason: fever,pain) 0RF Ozempic 2 mg/dose (8 mg/3 mL) pen injector 2 mg SUBCUT QWEEK Patient Comments: Inject 0.25 mg subcutaneously once a week HPI General Date/Time Provider Initiated Documentation: 11/28/23 18:26 . HPI Narrative: Joanna is a 73-year-old female with history of recurrent cardioembolic strokes, NSTEMI, HTN, HLD, T2DM with peripheral neuropathy, paroxysmal A-fib, hypertrophic cardiomyopathy, CAD, ICD, hyperparathyroidism, depression, asthma who presents to the emergency department today via EMS for concern of stroke. She reports that approximately 30 minutes prior to arrival to the emergency department she was sitting watching TV when she experienced a sudden severe posterior headache that lasted a couple of seconds, followed by numbness from her knees down and intermittent episodes of dizziness that come on on triggered and resolve spontaneously. She had 5 episodes of dizziness. At this time she only reports numbness to her lower legs, says all of the symptoms have resolved. She denies recent fever, vision changes, confusion, ear pain, hearing loss, congestion, sore throat, cough, chest pain, shortness of breath, palpitations, nausea/vomiting, abdominal pain, change in bowel or bladder function, extremity weakness. She says that this feels like previous strokes that she has had, but does admit to short-term memory loss and difficulty with remembering exactly how her previous stroke felt. Denies recent EtOH use or medication changes. Related Data Home Medications Medication Instructions Recorded Confirmed acetaminophen 325 mg tablet 650 mg (2 x 325 mg) PO Q4H PRN PRN 04/30/17 11/28/23 (Tylenol) fever,pain apixaban 5 mg tablet (Eliquis) 5 mg PO BID #180 tabs 09/01/17 11/28/23 cetirizine 10 mg tablet (Zyrtec) 10 mg PO DAILY 10/25/19 11/28/23 metformin 750 mg tablet,extended 750 mg PO BID 10/25/19 11/28/23 release 24 hr evolocumab 140 mg/mL subcutaneous 140 mg subcut Q2W 12/12/20 11/28/23 syringe (Repatha Syringe) magnesium oxide 400 mg (241.3 mg 400 mg PO DAILY 12/12/20 11/28/23 magnesium) tablet pen needle, diabetic ##1 12/12/20 11/28/23 insulin lispro 100 unit/mL See Rx Instructions subcut 08/04/21 11/28/23 subcutaneous pen (Humalog KwikPen DIRECTED (U-100) Insulin) cholecalciferol (vitamin D3) 25 25 mcg PO DAILY 09/02/21 11/28/23 mcg (1,000 unit) capsule cyanocobalamin (vitamin B-12) 1,000 mcg PO DAILY 02/03/22 11/28/23 5,000 mcg capsule semaglutide 2 mg/dose (8 mg/3 mL) 2 mg subcut QWEEK 11/02/22 11/28/23 subcutaneous pen injector (Ozempic) metoprolol tartrate 25 mg tablet 25 mg PO DAILY 12/16/22 11/28/23 pantoprazole 40 mg tablet,delayed 40 mg PO DAILY 12/16/22 11/28/23 release spironolactone 25 mg tablet 25 mg PO DAILY 12/16/22 11/28/23 gabapentin 300 mg capsule 600 mg (2 x 300 mg) PO BID #450 11/25/23 11/28/23 caps insulin glargine 100 unit/mL 18 unit subcut BID 11/25/23 11/28/23 subcutaneous solution (Lantus U-100 Insulin) Previous Rx's Medication Instructions Recorded acetaminophen 325 mg tablet 650 mg (2 x 325 mg) PO Q4H PRN PRN 04/30/17 (Tylenol) fever,pain apixaban 5 mg tablet (Eliquis) 5 mg PO BID #180 tabs 09/01/17 gabapentin 300 mg capsule 600 mg (2 x 300 mg) PO BID #450 11/25/23 caps Allergies Allergy/AdvReac Type Severity Reaction Status Date / Time clopidogrel [From Plavix] Allergy Intermediate Skin Rash Verified 11/28/23 18:41 atenolol Allergy Mild Other (See Verified 11/28/23 18:41 Comment) ezetimibe [From Zetia] Allergy Mild Other (See Verified 11/28/23 18:41 Comment) hydroxychloroquine Allergy Mild Other (See Verified 11/28/23 18:41 [From Plaquenil] Comment) lisinopril Allergy Mild Other (See Verified 11/28/23 18:41 Comment) losartan [From Cozaar] Allergy Mild Other (See Verified 11/28/23 18:41 Comment) cephalexin Allergy Rash Verified 11/28/23 18:41 ciprofloxacin Allergy Other (See Verified 11/28/23 18:41 Comment) [place]-BHK-TuW Reductase Allergy Other (See Verified 11/28/23 18:41 Inhibitor Comment) [Dvekzhd-Ouc-Lww Reductase Inhibitor] oxycodone HCl [From Percocet] AdvReac CRAZY Verified 11/28/23 18:41 General Stated Complaint: CVA/TIA KATHLEEN: 2 Review of Systems Narrative: se HPI Exam Const General: cooperative, healthy appearing, comfortable, no acute distress and well developed Nutritional Appearance: average body habitus [facility] Head: normal to inspection Ears: hearing grossly normal bilaterally General nose exam: external nose normal Face and sinus: normal facial exam and face symmetric Mouth: oral mucosae normal and moist mucous membranes Eyes Pupils: PERRL EOM: EOM intact bilaterally Resp Effort & Inspection: normal respiratory effort and able to speak in complete sentences Auscultation: clear to auscultation bilaterally Cardio Rate: regular rate Rhythm: regular rhythm GI Inspection: normal to inspection Palpation: soft and nontender Neuro General: patient alert, patient awake, patient oriented x3 and CN's II-XI intact bilaterally Cranial Nerves: CN's II-XI intact bilaterally, PERRL, EOM intact bilaterally, no nystagmus, facial strength normal, able to rotate head bilaterally and able to elevate shoulders bilaterally Cognition: normal cognition Speech: speech normal Motor: muscle tone normal throughout, strength 5/5 throughout and no pronator drift Sensory Exam: lower extremity (decreased sensation to lower bilat extremities) Course Vital Signs Vital signs: Vital Signs Temperature 36.9 C 11/28/23 18:24 Pulse 73 11/28/23 18:24 Respiratory Rate 15 11/28/23 18:24 Blood Pressure 187/90 H 11/28/23 18:24 Pulse Oximetry 97 11/28/23 18:24 Temperature 36.9 C 11/28/23 18:24 Temperature Source Temporal Artery Scan 11/28/23 18:24 Pulse 73 11/28/23 18:24 Respiratory Rate 15 11/28/23 18:38 Respiratory Effort Normal 11/28/23 18:38 Respiratory Depth Normal 11/28/23 18:38 Respiratory Pattern Normal 11/28/23 18:38 Blood Pressure 187/90 H 11/28/23 18:24 Blood Pressure Position Sitting 11/28/23 18:24 Pulse Oximetry 97 11/28/23 18:24 Oxygen Delivery Method Room Air 11/28/23 18:24 Oxygen Flow Rate 0 11/28/23 18:24 Pain Level 0 11/28/23 18:24 Medical Decision Making Joanna is a 73-year-old female with history of recurrent cardioembolic strokes, NSTEMI, HTN, HLD, T2DM with peripheral neuropathy, paroxysmal A-fib, hypertrophic cardiomyopathy, CAD, ICD, hyperparathyroidism, depression, asthma who presents to the emergency department today via EMS for concern of stroke. She reports that approximately 30 minutes prior to arrival to the emergency [facility] she was sitting watching TV when she experienced a sudden severe posterior headache that lasted a couple of seconds, followed by numbness from her knees down and intermittent episodes of dizziness that come on on triggered and resolve spontaneously. She had 5 episodes of dizziness. At this time she only reports numbness to her lower legs, says all of the symptoms have resolved. She denies recent fever, vision changes, confusion, ear pain, hearing loss, congestion, sore throat, cough, chest pain, shortness of breath, palpitations, nausea/vomiting, abdominal pain, change in bowel or bladder function, extremity weakness. She says that this feels like previous strokes that she has had, but does admit to short-term memory loss and difficulty with remembering exactly how her previous stroke felt. Denies recent EtOH use or medication changes. Physical exam remarkable for decreased sensation to light touch in bilateral lower extremities from the knee down. Joanna is alert and oriented x 4. 5 out of 5 muscle strength upper and lower extremities. Strong hand grasp. Cranial nerves II through XII intact as tested. PERRL, EOMs intact. Visual sloan intact. No dysarthria or aphasia noted. Easy work of breathing, lung sounds clear bilaterally. Normal heart sounds. Abdomen is soft, nondistended, nontender to palpation. History and presentation concerning for stroke or TIA. NIHSS score 1 based on sensation loss. I independently interpreted the following tests: EKG reassuring, ventricular paced rhythm rate 75. Unchanged from previous. Chest X-ray notable for cardio megaly. CBC, CMP reassuring. Hypomagnesemia noted, magnesium 1.4. Initial troponin elevated at 119; patient does have history of chronic elevated troponins in the past, last ED visit troponin was 119. CTA head/neck ordered; as patient has a history of anaphylaxis due to iodine contrast, premedicated with Solu-Medrol and Benadryl ordered. Patient says she has tolerated contrast in the past using pretreatment. CTA head and neck reassuring, no acute abnormalities noted by radiologist. Teleneuro consult performed. Discussed case with Dr. Ward, based on patient's presentation and risk factors, unable to fully rule out stroke without MRI. Patient does report that symptoms have largely resolved, vertigo does persist along with 1 leg paresthesia remaining. Recommends administration of aspirin 325 tonight (followed by 81 mg daily if infarct noted), as well as hospital observation. Brain MRI to be performed in the morning with PT evaluation for vertigo. Presented case with Dr. Yeboah, hospitalist physician. Patient to be admitted to [facility] for observation. Patient is agreeable with plan of care. Imaging Data Radiologic Study: Radiologist's impression: PROCEDURE INFORMATION: Exam: CTA Head With Contrast, Arteriography Exam date and time: 11/28/2023 6:49 PM Age: 73 years old Clinical indication: Stroke-like symptoms; Right lower extremity and left lower extremity numbness/paresthesia TECHNIQUE: Imaging protocol: Computed tomographic angiography of the head with contrast. Exam focused on the arteries. 3D rendering (Not supervised by radiologist): MIP and/or 3D reconstructed images were created by the technologist. Contrast material: 350; Contrast volume: 85 ml; Contrast route: INTRAVENOUS (IV); COMPARISON: CT BRAIN NECK CTA 05/16/2023 2:11 PM FINDINGS: ANTERIOR CIRCULATION: Right internal carotid artery: Intracranial segment is patent with no significant stenosis. No aneurysm. Right middle cerebral artery: No occlusion or significant stenosis. No aneurysm. Right anterior cerebral artery: No occlusion or significant stenosis. No aneurysm. Left internal carotid artery: Intracranial segment is patent with no significant stenosis. No aneurysm. Left middle cerebral artery: No occlusion or significant stenosis. No aneurysm. Left anterior cerebral artery: No occlusion or significant stenosis. No aneurysm. POSTERIOR CIRCULATION: Right vertebral artery: No occlusion or significant stenosis. No aneurysm. Left vertebral artery: No occlusion or significant stenosis. No aneurysm. Basilar artery: No occlusion or significant stenosis. No aneurysm. Right posterior cerebral artery: No occlusion or significant stenosis. No aneurysm. Left posterior cerebral artery: No occlusion or significant stenosis. No aneurysm. Brain: Cerebral atrophy and probable underlying microvascular ischemic changes are again evident with no intracranial mass, acute transcortical infarction or recent intracranial hemorrhage detected. Cerebral ventricles: Stable in configuration with no midline shift or hydrocephalus. Mastoid air cells: Grossly clear bilaterally. Paranasal sinuses: Grossly clear throughout. Bones/joints: No acute fracture. Soft tissues: Unremarkable. IMPRESSION: 1. No large vessel stenosis or occlusion detected involving the major branches of the anterior or posterior intracranial circulation. 2. No evidence of acute transcortical infarction, recent intracranial hemorrhage or hydrocephalus with underlying atrophy and chronic microvascular ischemic changes noted as above. Radiologic Study #2: Radiologist's impression: PROCEDURE INFORMATION: Exam: XR Chest Exam date and time: 11/28/2023 7:25 PM Age: 73 years old Clinical indication: Other: R/O CVA vs TIA TECHNIQUE: Imaging protocol: Radiologic exam of the chest. Views: 1 view. COMPARISON: CR XR CHEST 2V PA LATERAL 03/04/2023 12:57 PM FINDINGS: Lungs: No new parenchymal mass or consolidation detected. Pleural spaces: No pneumothorax or pleural effusion is seen. Heart/Mediastinum: Cardiac silhouette is enlarged and vessel margins remain sharply defined. Multiple lead left subclavian transvenous pacer/defibrillator device now seen in position. Bones/joints: No acute osseous lesions are detected. IMPRESSION: Cardiomegaly with AICD device now seen in position and no acute cardiopulmonary process detected. Quality:SDOH Health Related Social Needs: No Data to Display PFSH All Active Problems (Updated 11/28/23 @ 22:24 by Fatemeh Patiño) Distal paresthesia (Acute) Dizziness (Acute) Imbalance (Acute) NSTEMI (non-ST elevated myocardial infarction) (Acute) Paroxysmal atrial fibrillation (Chronic) Acute blood loss anemia (Acute) Acute GI bleeding (Acute) Syncope (Chronic) Mobitz type 1 second degree AV block (Acute) Sinus pause (Acute) Elevated troponin (Acute) Bradykinesia (Acute) Memory problem (Acute) Cervical radiculopathy (Acute) Sciatica (Acute) Neuropathic pain (Acute) Tremor (Acute) Abnormal movements (Acute) Actinic keratosis (Acute) Pelvic pain in female (Acute) Squamous cell skin cancer (Acute) Recurrent UTI (urinary tract infection) (Acute) Diabetes mellitus type 2, uncontrolled, with complications (Chronic) Hyperlipidemia associated with type 2 diabetes mellitus (Acute) Hypertension associated with diabetes (Chronic) ESE (acute kidney injury) (Acute) Pain in right lower leg (Acute) Medical History Hyperlipidemia Acne rosacea Hypertension Type 2 diabetes mellitus Allergic rhinitis Intermittent asthma Adequate 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 on anticoagulant therapy Myalgia Diarrhea Overflow incontinence Hypercalcemia H/O urinary frequency Urinary incontinence Carcinoma of skin Reactive depression Adjustment disorder with mixed anxiety and depressed mood Diabetic peripheral neuropathy Microalbuminuria Hyperparathyroidism Atypical chest pain History of CVA (cerebrovascular accident) Granulomatous disorder of the skin and subcutaneous tissue, unspecified Mixed stress and urge urinary incontinence History of kidney stones CVA (cerebral vascular accident) Peripheral neuropathy Asthma Urge urinary incontinence Weakness of foot Allergic to IV contrast Left acute arterial ischemic stroke, MCA (middle cerebral artery) Surgical History Hx of colonoscopy bladder repair,open Abdominal hysterectomy Family History Other Diabetes Hyperlipidemia Hypertension Social History Smoking/Tobacco Use Status: Never Smoking risk assessment performed?: Yes Alcohol Intake: never Drug use: Never Substance use type: does not use Household members: spouse Housing: house Number of Children: 3 number of grandchildren: 7 Pets and animals: No Current gender identity: female What is your relationship status?: Panel score (0-1 are the most socially isolated patients): 1 What type of physical activity do you participate in: swimming Seatbelt use: always Do you feel safe at home: Yes Do you feel safe in your relationship?: Yes Additional Social history: Lives in [place] with her . Grew up in [place].
[2023-11-28] MEDS: Normal Saline - Diluent 50 ML VIAL IJ (18:51)
[2023-11-28] MEDS: Normal Saline Flush 10 ML SYR IVP (18:51)
[2023-11-28] MEDS: Omnipaque 350 MG/ML 100 ML BTL IJ (18:52)
[2023-11-28 19:02] LABS: ALT 25 U/L (14-59); AST 17 U/L (15-37); Albumin 3.8 g/dL (3.4-5.0); Alkaline Phosphatase 67 U/L (46-116); Anion Gap 10.5 mmol/L (3-11); BUN 18 mg/dL (7-18); Bilirubin, Total 0.3 mg/dL (0.2-1.0); CO2 24.5 mmol/L (21.0-32.0); CREATININE 1.1 mg/dL (0.55-1.02); Calcium 10.2 mg/dL (8.5-10.1); Chloride 106 mmol/L (98-107); Estimated GFR 53.72 (mL/min/1.73m2); Glucose 178 mg/dL (74-106); Magnesium 1.4 mg/dL (1.8-2.4); Potassium 4.2 mmol/L (3.5-5.1); Sodium 141 mmol/L (136-145); Total Protein 7.2 g/dL (6.4-8.2)
[2023-11-28 19:03] LABS: Troponin I 119 ng/L (< or =60)
[2023-11-28] MEDS: methylPREDNISolone SUCC 125 MG VIAL IVP (19:10)
[2023-11-28] MEDS: diphenhydrAMINE 50 MG/ML VIAL 25 MG IVP (19:10)
--- NOTE | 2023-11-28 19:46 | DI.VRAD_ITS ---
Addendum created by Roger Jennings MD on 11/28/2023 7:52:29 PM EDT: THIS REPORT CONTAINS FINDINGS THAT MAY BE CRITICAL TO PATIENT CARE. The findings were verbally communicated via telephone conference with MYRON BELL at 7:52 PM EDT on 11/28/2023. The findings were acknowledged and understood. Initial report created on 11/28/2023 7:46:21 PM EDT: PROCEDURE INFORMATION: Exam: CTA Head With Contrast, Arteriography Exam date and time: 11/28/2023 6:49 PM Age: 73 years old Clinical indication: Stroke-like symptoms; Right lower extremity and left lower extremity numbness/paresthesia TECHNIQUE: Imaging protocol: Computed tomographic angiography of the head with contrast. Exam focused on the arteries. 3D rendering (Not supervised by radiologist): MIP and/or 3D reconstructed images were created by the technologist. Contrast material: 350; Contrast volume: 85 ml; Contrast route: INTRAVENOUS (IV); COMPARISON: CT BRAIN NECK CTA 05/16/2023 2:11 PM FINDINGS: ANTERIOR CIRCULATION: Right internal carotid artery: Intracranial segment is patent with no significant stenosis. No aneurysm. Right middle cerebral artery: No occlusion or significant stenosis. No aneurysm. Right anterior cerebral artery: No occlusion or significant stenosis. No aneurysm. Left internal carotid artery: Intracranial segment is patent with no significant stenosis. No aneurysm. Left middle cerebral artery: No occlusion or significant stenosis. No aneurysm. Left anterior cerebral artery: No occlusion or significant stenosis. No aneurysm. POSTERIOR CIRCULATION: Right vertebral artery: No occlusion or significant stenosis. No aneurysm. Left vertebral artery: No occlusion or significant stenosis. No aneurysm. Basilar artery: No occlusion or significant stenosis. No aneurysm. Right posterior cerebral artery: No occlusion or significant stenosis. No aneurysm. Left posterior cerebral artery: No occlusion or significant stenosis. No aneurysm. Brain: Cerebral atrophy and probable underlying microvascular ischemic changes are again evident with no intracranial mass, acute transcortical infarction or recent intracranial hemorrhage detected. Cerebral ventricles: Stable in configuration with no midline shift or hydrocephalus. Mastoid air cells: Grossly clear bilaterally. Paranasal sinuses: Grossly clear throughout. Bones/joints: No acute fracture. Soft tissues: Unremarkable. IMPRESSION: 1. No large vessel stenosis or occlusion detected involving the major branches of the anterior or posterior intracranial circulation. 2. No evidence of acute transcortical infarction, recent intracranial hemorrhage or hydrocephalus with underlying atrophy and chronic microvascular ischemic changes noted as above. PROCEDURE INFORMATION: Exam: CTA Neck With Contrast Exam date and time: 11/28/2023 6:49 PM Age: 73 years old Clinical indication: Stroke-like symptoms; Right lower extremity and left lower extremity numbness/paresthesia TECHNIQUE: Imaging protocol: Computed tomographic angiography of the neck with contrast. Exam focused on the cervical segments of the vasculature. 3D rendering (Not supervised by radiologist): MIP and/or 3D reconstructed images were created by the technologist. Contrast material: 350; Contrast volume: 85 ml; Contrast route: INTRAVENOUS (IV); COMPARISON: CT BRAIN NECK CTA 05/16/2023 2:11 PM FINDINGS: Right common carotid artery: No stenosis. No dissection or occlusion. Right internal carotid artery: No stenosis of the extracranial segment. No dissection or occlusion. Right external carotid artery: No occlusion or stenosis of the origin. Left common carotid artery: No stenosis. No dissection or occlusion. Left internal carotid artery: No stenosis of the extracranial segment. No dissection or occlusion. Left external carotid artery: No occlusion or stenosis of the origin. Right vertebral artery: No stenosis. No dissection or occlusion. Left vertebral artery: No stenosis. No dissection or occlusion. Soft tissues: Normal. No significant soft tissue swelling. Bones/joints: No acute fracture. IMPRESSION: No evidence of 50% or greater stenosis involving the cervical segments of the right or left internal carotid arteries by NASCET criteria. REFERENCES: NASCET CRITERIA. The degree of stenosis in the cervical segment of the internal carotid artery is based on NASCET criteria. Normal is no stenosis. Mild is less than 50% stenosis. Moderate is 50-69% stenosis. Severe is 70% to 99% stenosis. Total occlusion is no detectable patent lumen. Dictated and Authenticated by: Roger Jennings MD. Ordering:TEODORA Weldon MD
--- NOTE | 2023-11-28 19:49 | DI.VRAD_ITS ---
PROCEDURE INFORMATION: Exam: XR Chest Exam date and time: 11/28/2023 7:25 PM Age: 73 years old Clinical indication: Other: R/O CVA vs TIA TECHNIQUE: Imaging protocol: Radiologic exam of the chest. Views: 1 view. COMPARISON: CR XR CHEST 2V PA LATERAL 03/04/2023 12:57 PM FINDINGS: Lungs: No new parenchymal mass or consolidation detected. Pleural spaces: No pneumothorax or pleural effusion is seen. Heart/Mediastinum: Cardiac silhouette is enlarged and vessel margins remain sharply defined. Multiple lead left subclavian transvenous pacer/defibrillator device now seen in position. Bones/joints: No acute osseous lesions are detected. IMPRESSION: Cardiomegaly with AICD device now seen in position and no acute cardiopulmonary process detected. Dictated and Authenticated by: Roger Jennings MD. Ordering:TEODORA Weldon MD
[2023-11-28 19:55] LABS: Bilirubin Negative (Negative); Blood Negative (Negative); Clarity Sl Cloudy (Clear); Glucose Negative (Negative); Ketones Negative (Negative); Leukocyte Esterase Negative (Negative); Nitrite Negative (Negative); Urobilinogen 0.2 mg/dL (Up to 0.2); pH 5.5 (5-8)
[2023-11-28 20:02] LABS: Bacteria Few HPF (Negative); Crystals Negative HPF (Negative); Epithelial Cells Few HPF (Negative); RBC Negative HPF (0-2)
[2023-11-28 20:03] LABS: C & S Indicated? No; Casts Negative LPF (Negative); Mucus Negative (Negative)
[2023-11-28 22:26] LABS: Troponin I 121 ng/L (< or =60)
[2023-11-28] MEDS: Aspirin 325 MG TAB PO (23:05)
[2023-11-29 00:16] VITALS: BP 175/82; PULSE 78; RESP 18; TEMP 36; O2SAT 98
--- NOTE | 2023-11-29 00:56 | W.PM.HP.N ---
Date of service: 11/28/23 Time of Service: 23:30 Assessment and Plan Assessment and plan (1) Distal paresthesia: Status: Acute Assessment and plan: Unclear what is causing this subjective feeling of decreased sensation in her distal lower extremities. CT imaging does not show any acute event. Teleneuro consult with Dr. Ward recommends adding aspirin to her Eliquis and checking an MRI to rule out any further cerebral derangement. This may be logistically difficult to obtain because of her AICD. (2) Dizziness: Status: Acute Assessment and plan: Intermittent vertigo primarily when she ambulates. Ambulate with assistance for now. Consider physical therapy assessment if not improved by morning. (3) Imbalance: Status: Acute Assessment and plan: Known bradykinesia based on Dr. Paredes's evaluation from 11/25/2023. She is known to have a change in her gait and there is concern for Parkinson's. She has an outpatient referral for physical therapy. (4) Paroxysmal atrial fibrillation: Status: Chronic Assessment and plan: On Eliquis. Rate appears well-controlled. (5) Elevated troponin: Status: Acute Assessment and plan: Chronically elevated troponin. This does not appear to be related to myocardial ischemia. A repeat level was unchanged. Patient does not have symptoms. (6) Bradykinesia: Status: Acute Assessment and plan: Related to possible early Parkinson's. (7) Diabetes mellitus type 2, uncontrolled, with complications: Status: Chronic Assessment and plan: Will maintain on her usual diabetic medications. Add sliding scale coverage and check blood sugars AC. History of Present Illness History of Present Illness Chief Complaint: Sudden onset of leg numbness-suspected TIA Narrative: 73-year-old female with sudden onset of lower extremity numbness this evening. She is very concerned that she is having a stroke because she had similar symptoms when she had a stroke in 2017. She is quite specific about her legs feeling different. She describes a loss of sensation in both lower extremities from the calf below. She is also had some dizziness when she goes to stand up. She also had a headache for about 15 seconds that has since resolved. In the emergency room her exam was overall benign other than the subjective feeling of decreased sensation in both lower extremities. There were no motor deficits. Her labs were unremarkable. She had a CT angiogram of the head and neck that showed chronic microvascular changes but nothing acute. Her troponin was elevated at 119 but this has been elevated similarly in the past. She had a teleneurology consult in the emergency room with Dr. Ward. He felt that we could not completely rule out a CVA. He recommended aspirin 325 mg p.o. x 1 then 81 mg daily until an MRI could be obtained. This is complicated by the fact that she has an AICD. She is admitted to observation for further monitoring. Review of Systems Narrative: As per HPI patient is a very distinct description of symptoms that came on suddenly at around 8 PM this evening. She had a loss of sensation of her lower extremities headache, a headache that lasted about 15 seconds, and on and off vertigo. No other significant review of systems present. [facility] All Active Problems (Updated 11/29/23 @ 01:04 by Justin Celis MD) Hyperlipidemia (Acute 02/01/13) Diabetes mellitus (Chronic 02/01/13) Cerebrovascular accident (CVA) due to embolism of left middle cerebral artery (Acute 06/08/17) Distal paresthesia (Acute) Dizziness (Acute) Imbalance (Acute) Paroxysmal atrial fibrillation (Chronic) Elevated troponin (Acute) Bradykinesia (Acute) Neuropathic pain (Acute) Diabetes mellitus type 2, uncontrolled, with complications (Chronic) Hyperlipidemia associated with type 2 diabetes mellitus (Acute) Hypertension associated with diabetes (Chronic) Medical History (Updated 11/29/23 @ 01:04 by Justin Celis MD) Pain in right lower leg ESE (acute kidney injury) Recurrent UTI (urinary tract infection) Squamous cell skin cancer Pelvic pain in female Actinic keratosis Abnormal movements Tremor Sciatica Cervical radiculopathy Memory problem Sinus pause Mobitz type 1 second degree AV block Syncope Acute GI bleeding Acute blood loss anemia NSTEMI (non-ST elevated myocardial infarction) Hyperlipidemia Acne rosacea Hypertension Type 2 diabetes mellitus Allergic rhinitis Intermittent asthma Adequate 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 on anticoagulant therapy Myalgia Diarrhea Overflow incontinence Hypercalcemia H/O urinary frequency Urinary incontinence Carcinoma of skin Reactive depression Adjustment disorder with mixed anxiety and depressed mood Diabetic peripheral neuropathy Microalbuminuria Hyperparathyroidism Atypical chest pain History of CVA (cerebrovascular accident) Granulomatous disorder of the skin and subcutaneous tissue, unspecified Mixed stress and urge urinary incontinence History of kidney stones CVA (cerebral vascular accident) Peripheral neuropathy Asthma Urge urinary incontinence Weakness of foot Allergic to IV contrast Left acute arterial ischemic stroke, MCA (middle cerebral artery) Surgical History Hx of colonoscopy bladder repair,open Abdominal hysterectomy Family History Other Diabetes Hyperlipidemia Hypertension Social History Smoking/Tobacco Use Status: Never Smoking risk assessment performed?: Yes Alcohol Intake: never Drug use: Never Substance use type: does not use Household members: spouse Housing: house Number of Children: 3 number of grandchildren: 7 Pets and animals: No Current gender identity: female What is your relationship status?: Panel score (0-1 are the most socially isolated patients): 1 What type of physical activity do you participate in: swimming Seatbelt use: always Do you feel safe at home: Yes Do you feel safe in your relationship?: Yes Additional Social history: Lives in [place] with her . Grew up in [place]. Meds Allergies and Home Medications Allergies Allergy/AdvReac Type Severity Reaction Status Date / Time clopidogrel [From Plavix] Allergy Intermediate Skin Rash Verified 11/28/23 18:41 atenolol Allergy Mild Other (See Verified 11/28/23 18:41 Comment) ezetimibe [From Zetia] Allergy Mild Other (See Verified 11/28/23 18:41 Comment) hydroxychloroquine Allergy Mild Other (See Verified 11/28/23 18:41 [From Plaquenil] Comment) lisinopril Allergy Mild Other (See Verified 11/28/23 18:41 Comment) losartan [From Cozaar] Allergy Mild Other (See Verified 11/28/23 18:41 Comment) cephalexin Allergy Rash Verified 11/28/23 18:41 ciprofloxacin Allergy Other (See Verified 11/28/23 18:41 Comment) Oiirnwd-YAT-EqQ Reductase Allergy Other (See Verified 11/28/23 18:41 Inhibitor Comment) [Hdwyzgu-Uvn-Uhp Reductase Inhibitor] oxycodone HCl [From Percocet] AdvReac CRAZY Verified 11/28/23 18:41 Home Medications Medication Instructions Recorded Confirmed Type acetaminophen 325 mg tablet 650 mg (2 x 325 mg) PO Q4H PRN PRN 04/30/17 11/28/23 Rx (Tylenol) fever,pain apixaban 5 mg tablet (Eliquis) 5 mg PO BID #180 tabs 09/01/17 11/28/23 Rx cetirizine 10 mg tablet (Zyrtec) 10 mg PO DAILY 10/25/19 11/28/23 History metformin 750 mg tablet,extended 750 mg PO BID 10/25/19 11/28/23 History release 24 hr evolocumab 140 mg/mL subcutaneous 140 mg subcut Q2W 12/12/20 11/28/23 History syringe (Repatha Syringe) magnesium oxide 400 mg (241.3 mg 400 mg PO DAILY 12/12/20 11/28/23 History magnesium) tablet pen needle, diabetic ##1 12/12/20 11/28/23 History insulin lispro 100 unit/mL See Rx Instructions subcut 08/04/21 11/28/23 History subcutaneous pen (Humalog KwikPen DIRECTED (U-100) Insulin) cholecalciferol (vitamin D3) 25 25 mcg PO DAILY 09/02/21 11/28/23 History mcg (1,000 unit) capsule cyanocobalamin (vitamin B-12) 1,000 mcg PO DAILY 02/03/22 11/28/23 History 5,000 mcg capsule semaglutide 2 mg/dose (8 mg/3 mL) 2 mg subcut QWEEK 11/02/22 11/28/23 History subcutaneous pen injector (Ozempic) metoprolol tartrate 25 mg tablet 25 mg PO DAILY 12/16/22 11/28/23 History pantoprazole 40 mg tablet,delayed 40 mg PO DAILY 12/16/22 11/28/23 History release spironolactone 25 mg tablet 25 mg PO DAILY 12/16/22 11/28/23 History gabapentin 300 mg capsule 600 mg (2 x 300 mg) PO BID #450 11/25/23 11/28/23 Rx caps insulin glargine 100 unit/mL 18 unit subcut BID 11/25/23 11/28/23 History subcutaneous solution (Lantus U-100 Insulin) Exam Narrative Exam Narrative: On exam she was alert and in no apparent distress. She had no breathing difficulty. Her heart sounds were regular and no significant murmur was appreciated. The AICD in the left anterior chest was normal in appearance and nontender. Her abdominal exam was overall soft and nontender in all 4 quadrants. Her lower extremities were unremarkable and that they showed normal skin tone and good perfusion. She is subjectively described a loss of feeling from the calves on down to her feet. But she can move her toes and feet and extremities without any difficulty. The remainder of her neuroexam was unremarkable including upper and lower motor strength and facial symmetry. Results Labs 11/28/23 18:25 11/28/23 18:25 Labs: Laboratory Results - last 24 hr 11/28/23 11/28/23 11/28/23 18:25 19:46 22:00 WBC 9.39 RBC 4.73 Hgb 13.4 Hct 41.0 MCV 87 MCH 28.3 MCHC 32.7 RDW 13.7 Plt Count 280 MPV 10.3 Immature Gran % 0.2 Neutrophils % 48.6 Lymphocytes % 39.1 Monocytes % 8.0 Eosinophils % 3.5 Basophils % 0.6 Nucleated RBC % 0.0 Absolute Neutrophils 4.56 Absolute Lymphocytes 3.67 H Absolute Monocytes 0.75 Absolute Eosinophils 0.33 Absolute Basophils 0.06 Sodium 141 Potassium 4.2 Chloride 106 Carbon Dioxide 24.5 Anion Gap 10.5 BUN 18 Creatinine 1.1 H Est GFR (CKD-EPI 2020) 53.72 Glucose 178 H Calcium 10.2 H Magnesium 1.4 L Total Bilirubin 0.3 AST 17 ALT 25 Alkaline Phosphatase 67 Troponin I 119 H* 121 H* Total Protein 7.2 Albumin 3.8 Urine Color Yellow Urine Clarity Sl Cloudy Urine pH 5.5 Ur Specific Louin 1.020 Urine Protein 30 H Urine Ketones Negative Urine Blood Negative Urine Nitrite Negative Urine Bilirubin Negative Urine Urobilinogen 0.2 Ur Leukocyte Esterase Negative Urine RBC Negative Urine WBC 3-5 Ur Epithelial Cells Few Urine Crystals Negative Urine Bacteria Few Urine Casts Negative Urine Mucus Negative Ur Culture Indicated? No Urine Glucose Negative Last Vital Signs Temp 36.0 C L 11/29/23 00:16 Pulse 78 11/29/23 00:16 Resp 18 11/29/23 00:16 BP 175/82 H 11/29/23 00:16 Pulse Ox 98 11/29/23 00:16 Time Spent Time spent with Patient: 40-54 minutes Time was spent: preparing to see the patient(eg.review tests), obtaining and/or reviewing separately otained hiistory, ordering medications,tests, procedures, referring, communicating with other health health care assistant and indepentently interpreting results
[2023-11-29] MEDS: Normal Saline Flush 10 ML SYR IVP ×2 (00:58→07:51)
[2023-11-29] MEDS: Acetaminophen 325 MG TAB PO (00:59)
[2023-11-29 02:57] VITALS: BP 140/67; PULSE 78; RESP 18; TEMP 36.2; O2SAT 92
[2023-11-29 07:19] VITALS: BP 136/68; PULSE 79; RESP 18; TEMP 36.5; O2SAT 92
[2023-11-29] MEDS: Apixaban 5 MG TAB PO (07:51)
[2023-11-29] MEDS: Spironolactone 25 MG TAB PO (07:51)
[2023-11-29] MEDS: Cyanocobalamin 500 MCG TAB 1000 MCG PO (07:51)
[2023-11-29] MEDS: Cetirizine 10 MG TAB PO (07:52)
[2023-11-29] MEDS: Cholecalciferol (Vitamin D3) 1,000 UNIT TAB 1000 UNITS PO (07:52)
[2023-11-29] MEDS: Magnesium Oxide 400 MG TAB PO (07:52)
[2023-11-29] MEDS: Pantoprazole 40 MG TABCR PO (07:53)
[2023-11-29] MEDS: Metoprolol 12.5 MG TAB 25 MG PO (07:53)
[2023-11-29] MEDS: Gabapentin 300 MG CAP 600 MG PO (07:53)
[2023-11-29] MEDS: Insulin Aspart 300 UNITS/3 ML PEN SC ×2 (08:02→11:46)
[2023-11-29] MEDS: Insulin Glargine 300 UNITS/3 ML PEN 18 UNITS SC (08:03)
--- NOTE | 2023-11-29 09:00 | INITIAL_ITS ---
Date of service: 11/29/23 Time of Service: 09:00 Care Management Initial Assmt Initial Assessment Reason for Hospitalization: R/O CVA Functional Status/Living Situation Patient Presentation: Joanna was sitting up in a chair, fully dressed, when CM met with her. She stated that she is being discharged and is very happy about it. Her neurological symptoms have resolved and she is anxious to return home. Town of Residence: [place], [place] Resides with: Spouse (Lefty) Significant Other/Family: Out of area (one child lives in [place], [place]) Natural Supports: family Employment Status: Retired Instrumental Activities of Daily Living (ADLs): Independent Medications Medication Management: No Issues/Barriers identified Physical Functioning/Mobility Assistive Device: none Advance Directives Advance Directives: Do you have an Advance Directive: Y 11/25/23 15:41 AD On File at [facility]: Y 11/25/23 15:41 Date Asked 11/14/22 11/29/23 12:06 AD Date Reviewed 11/28/23 11/28/23 18:32 COLST On File at [facility] COLST Date Scanned Comment: [facility] Hart Code Status Resuscitation Status Full Code Insurance Coverage/Financial Issues Insurance: [facility] medicare Replacement ACO Member: No Care Team Visit Care Team Role Provider Type Elba Jett Primary Care Provider NON-[facility] STAFF PHYSICIAN Franny Giraldo RDN, [facility] Other Providers BIOCHEMICAL ENGINEER Dawna Finch Other Providers BIOCHEMICAL ENGINEER Stevan Ball RDN Other Providers BIOCHEMICAL ENGINEER Fatemeh Patiño Emergency Provider NURSE PRACTITIONER Justin Celis MD Admit Provider [facility] STAFF PHYSICIAN Attending Provider Discharge Potential Discharge Needs: PCP F/U Appt Anticipated Barriers to Discharge: None Identified Patient/Family Education Needs: Review discharge instructions, discuss Ask Me Three Transportation: Private vehicle Plan: Anticipate Joanna will be discharged home with no new services when medically stable. She will follow up with her PCP, Neurology and plan of care and transport with family. CM will follow. [facility] All Active Problems (Updated 11/29/23 @ 01:04 by Justin Celis MD) Hyperlipidemia (Acute 02/01/13) Diabetes mellitus (Chronic 02/01/13) Cerebrovascular accident (CVA) due to embolism of left middle cerebral artery (Acute 06/08/17) Distal paresthesia (Acute) Dizziness (Acute) Imbalance (Acute) Paroxysmal atrial fibrillation (Chronic) Elevated troponin (Acute) Bradykinesia (Acute) Neuropathic pain (Acute) Diabetes mellitus type 2, uncontrolled, with complications (Chronic) Hyperlipidemia associated with type 2 diabetes mellitus (Acute) Hypertension associated with diabetes (Chronic) Medical History (Updated 11/29/23 @ 01:04 by Justin Celis MD) Pain in right lower leg ESE (acute kidney injury) Recurrent UTI (urinary tract infection) Squamous cell skin cancer Pelvic pain in female Actinic keratosis Abnormal movements Tremor Sciatica Cervical radiculopathy Memory problem Sinus pause Mobitz type 1 second degree AV block Syncope Acute GI bleeding Acute blood loss anemia NSTEMI (non-ST elevated myocardial infarction) Hyperlipidemia Acne rosacea Hypertension Type 2 diabetes mellitus Allergic rhinitis Intermittent asthma Adequate 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 on anticoagulant therapy Myalgia Diarrhea Overflow incontinence Hypercalcemia H/O urinary frequency Urinary incontinence Carcinoma of skin Reactive depression Adjustment disorder with mixed anxiety and depressed mood Diabetic peripheral neuropathy Microalbuminuria Hyperparathyroidism Atypical chest pain History of CVA (cerebrovascular accident) Granulomatous disorder of the skin and subcutaneous tissue, unspecified Mixed stress and urge urinary incontinence History of kidney stones CVA (cerebral vascular accident) Peripheral neuropathy Asthma Urge urinary incontinence Weakness of foot Allergic to IV contrast Left acute arterial ischemic stroke, MCA (middle cerebral artery) Surgical History Hx of colonoscopy bladder repair,open Abdominal hysterectomy Family History Other Diabetes Hyperlipidemia Hypertension Social History Smoking/Tobacco Use Status: Never Smoking risk assessment performed?: Yes Alcohol Intake: never Drug use: Never Substance use type: does not use Household members: spouse Housing: house Number of Children: 3 number of grandchildren: 7 Pets and animals: No Current gender identity: female What is your relationship status?: Panel score (0-1 are the most socially isolated patients): 1 What type of physical activity do you participate in: swimming Seatbelt use: always Do you feel safe at home: Yes Do you feel safe in your relationship?: Yes Additional Social history: Lives in [place] with her . Grew up in [facility]. SDOH(Care Management) Screening Will the Patient Participate in the Screening?: Yes Do you worry about having a steady place to live?: no In the past 12 months, have you had to go without electric, gas, oil or water in your home?: no Have you or anyone in your house had to go without enough food to eat?: no Has lack of transportation kept you from medical appointments or from doing things needed for daily living?: no Has anyone in your support network made you feel unsafe for any reason?: no
--- NOTE | 2023-11-29 10:48 | DSE_ITS ---
Date of service: 11/29/23 Time of Service: 10:48 DS: Diagnosis Discharge Diagnosis (1) Distal paresthesia: Status: Acute (2) Dizziness: Status: Acute (3) Imbalance: Status: Acute (4) Paroxysmal atrial fibrillation: Status: Chronic (5) Elevated troponin: Status: Acute (6) Bradykinesia: Status: Acute (7) Diabetes mellitus type 2, uncontrolled, with complications: Status: Chronic Discharge Plan Disposition Patient Disposition: Home Condition: Improving Discharge Details Reason For Visit: TIA Admit Date/Time: 11/28/23 22:56 Admit Provider: Justin Celis Attending Provider: Justin Celis Primary Care Provider: Elba Jett Hospital Course Hospital Course: This is a 73-year-old female patient past medical history significant for paroxysmal atrial fibrillation fully anticoagulated on Eliquis diabetes mellitus type 2 who presented to the emergency department with a sensation in her bilateral lower extremities. She did have CT imaging that did not show any acute event. She underwent a teleneuro consult with recommendations for adding aspirin to her Eliquis. There were also recommendations for MRI but unfortunately due to her AICD we were unable to perform MRI. She was monitored overnight hemodynamically remained stable her symptoms had essentially resolved she thought she might have felt some residual symptoms in her right lower extremity but her physical exam is unremarkable with equal strength and movement bilaterally. She has good pulses and does have sensation. She will be discharged to home with the addition of aspirin to her Eliquis. No other medication changes have been made. She will follow-up outpatient with her primary care provider and Dr. Paredes who follows her outpatient for additional recommendations. She is being discharged to home with no new services Discharge discussed with Dr. Villegas Home Meds and New Rx's Prescriptions: New aspirin 81 mg Tablet,Delayed Release (Dr/Ec) 81 mg PO DAILY Qty: 30 0RF Continued spironolactone 25 mg tablet 25 mg PO DAILY metoprolol tartrate 25 mg tablet 25 mg PO DAILY pantoprazole 40 mg tablet,delayed release (DR/EC) 40 mg PO DAILY cholecalciferol (vitamin D3) 25 mcg (1,000 unit) capsule 25 mcg PO DAILY cyanocobalamin (vitamin B-12) 5,000 mcg capsule 1,000 mcg PO DAILY gabapentin 300 mg capsule 600 mg PO BID Qty: 450 3RF Rx Instructions: 600mg BID plus an extra 300mg once daily prn pain Eliquis 5 MG tablet 5 mg PO BID Qty: 180 3RF metformin 750 mg tablet extended release 24 hr 750 mg PO BID Rx Instructions: take with Metformin 500 mg tab cetirizine [Zyrtec] 10 mg tablet 10 mg PO DAILY Repatha Syringe 140 mg/mL syringe 140 mg subcut Q2W (DME) pen needle, diabetic Needle See Rx Instructions .ROUTE .MEDSUPPLY Qty: 1 Rx Instructions: As directed magnesium oxide 400 mg (241.3 mg magnesium) tablet 400 mg PO DAILY insulin lispro [Humalog KwikPen Insulin] 100 unit/mL insulin pen See Rx Instructions subcut DIRECTED Rx Instructions: per sliding scale subcut as directed; insulin glargine [Lantus U-100 Insulin] 100 unit/mL solution 18 unit SC BID Patient Comments: says she takes 31U in am - 09/02/21 acetaminophen [Tylenol] 325 MG tablet 650 mg PO Q4H PRN PRN (Reason: fever,pain) 0RF Ozempic 2 mg/dose (8 mg/3 mL) pen injector 2 mg SUBCUT QWEEK Patient Comments: Inject 0.25 mg subcutaneously once a week Discharge Instructions Instructions: Transient Ischemic Attack (DC) Additional Instructions: take all medication as prescribed return for new or worsening symptoms Referrals: Elba Jett [Primary Care Provider] - Zandra Paredes MD [ [facility] ST[facility]FF PHYSICIAN] - Activity:: Activity as Tolerated Equipment/Supplies:: No Equipment Needed Diet:: As Tolerated Discharge Orders Discharge Orders: Discharge Order (Routine); Ordered 11/29/23 Ordered By: Eli Rosario DS: Summary Time Spent with Patient providing and/or coordinating discharge services: Greater than 30 minutes Status at Discharge Functional status at discharge: uses cane/walker Overall status at discharge: patient is progressing back to baseline Mental Status: mental status grossly normal Speech and Movement: speech and movement normal Mood: congruent mood Affect: normal affect Quality:SDOH Health Related Social Needs: No Data to Display Exam Narrative Exam Narrative: Elderly female of stated age in no acute distress head is atraumatic oral mucosas moist eyes nonicteric noninjected EOMs are intact neck is supple with no JVD cardiovascular regular rate and rhythm, she is paced on EKG with a heart rate of 75. Respirations are even and unlabored abdomen is soft nontender bilateral lower extremities with no edema her strength in her extremities is 5 out of 5. Moves all extremities equally. Psych Mental Status: mental status grossly normal Speech and Movement: speech and movement normal Mood: congruent mood Affect: normal affect DS: Data Vitals/I&O Vitals and I&O: Vital Signs Temperature 36.5 C 11/29/23 07:19 Temperature Source Tympanic 11/29/23 07:19 Pulse 79 11/29/23 07:19 Pulse Rhythm Regular 11/29/23 08:07 Pulse 68 11/28/23 21:41 Respiratory Rate 18 11/29/23 07:19 Respiratory Effort Normal 11/29/23 08:07 Respiratory Depth Normal 11/29/23 08:07 Respiratory Pattern Normal 11/29/23 00:16 Blood Pressure 136/68 11/29/23 07:19 Blood Pressure Mean 106 11/28/23 21:40 Blood Pressure Position Sitting 11/28/23 18:24 Pulse Oximetry 92 11/29/23 07:19 Oxygen Delivery Method Room Air 11/29/23 07:19 Oxygen Flow Rate 0 11/29/23 07:19 Pain Level 8 11/29/23 07:19 Intake & Output 11/28/23 11/28/23 11/29/23 11:59 23:59 11:59 Intake Total 550 / 550 Balance 550 / 550 Weight 68.492 kg 67.676 kg Intake: IV Oral 550 / 550 Other: Urine Color Yellow Urine Appearance Clear Urine Odor Normal Voiding Methods Toilet Data Completed and Pending Labs on day of discharge: Labs from last 24 hours 11/28/23 11/28/23 11/28/23 22:00 19:46 18:25 WBC 9.39 RBC 4.73 Hgb 13.4 Hct 41.0 MCV 87 MCH 28.3 MCHC 32.7 RDW 13.7 Plt Count 280 MPV 10.3 Immature Gran % 0.2 Neutrophils % 48.6 Lymphocytes % 39.1 Monocytes % 8.0 Eosinophils % 3.5 Basophils % 0.6 Nucleated RBC % 0.0 Absolute Neutrophils 4.56 Absolute Lymphocytes 3.67 H Absolute Monocytes 0.75 Absolute Eosinophils 0.33 Absolute Basophils 0.06 Sodium 141 Potassium 4.2 Chloride 106 Carbon Dioxide 24.5 Anion Gap 10.5 BUN 18 Creatinine 1.1 H Est GFR (CKD-EPI 2020) 53.72 Glucose 178 H Calcium 10.2 H Magnesium 1.4 L Total Bilirubin 0.3 AST 17 ALT 25 Alkaline Phosphatase 67 Troponin I 121 H* 119 H* Total Protein 7.2 Albumin 3.8 Urine Color Yellow Urine Clarity Sl Cloudy Urine pH 5.5 Ur Specific [place] 1.020 Urine Protein 30 H Urine Ketones Negative Urine Blood Negative Urine Nitrite Negative Urine Bilirubin Negative Urine Urobilinogen 0.2 Ur Leukocyte Esterase Negative Urine RBC Negative Urine WBC 3-5 Ur Epithelial Cells Few Urine Crystals Negative Urine Bacteria Few Urine Casts Negative Urine Mucus Negative Ur Culture Indicated? 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 (Acute 06/08/17) Distal paresthesia (Acute) Dizziness (Acute) Imbalance (Acute) Paroxysmal atrial fibrillation (Chronic) Elevated troponin (Acute) Bradykinesia (Acute) Neuropathic pain (Acute) Diabetes mellitus type 2, uncontrolled, with complications (Chronic) Hyperlipidemia associated with type 2 diabetes mellitus (Acute) Hypertension associated with diabetes (Chronic) Medical History (Updated 11/29/23 @ 01:04 by Justin Celis MD) Pain in right lower leg ESE (acute kidney injury) Recurrent UTI (urinary tract infection) Squamous cell skin cancer Pelvic pain in female Actinic keratosis Abnormal movements Tremor Sciatica Cervical radiculopathy Memory problem Sinus pause Mobitz type 1 second degree AV block Syncope Acute GI bleeding Acute blood loss anemia NSTEMI (non-ST elevated myocardial infarction) Hyperlipidemia Acne rosacea Hypertension Type 2 diabetes mellitus Allergic rhinitis Intermittent asthma Adequate 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 on anticoagulant therapy Myalgia Diarrhea Overflow incontinence Hypercalcemia H/O urinary frequency Urinary incontinence Carcinoma of skin Reactive depression Adjustment disorder with mixed anxiety and depressed mood Diabetic peripheral neuropathy Microalbuminuria Hyperparathyroidism Atypical chest pain History of CVA (cerebrovascular accident) Granulomatous disorder of the skin and subcutaneous tissue, unspecified Mixed stress and urge urinary incontinence History of kidney stones CVA (cerebral vascular accident) Peripheral neuropathy Asthma Urge urinary incontinence Weakness of foot Allergic to IV contrast Left acute arterial ischemic stroke, MCA (middle cerebral artery) Surgical History Hx of colonoscopy bladder repair,open Abdominal hysterectomy Family History Other Diabetes Hyperlipidemia Hypertension Social History Smoking/Tobacco Use Status: Never Smoking risk assessment performed?: Yes Alcohol Intake: never Drug use: Never Substance use type: does not use Household members: spouse Housing: house Number of Children: 3 number of grandchildren: 7 Pets and animals: No Current gender identity: female What is your relationship status?: Panel score (0-1 are the most socially isolated patients): 1 What type of physical activity do you participate in: swimming Seatbelt use: always Do you feel safe at home: Yes Do you feel safe in your relationship?: Yes Additional Social history: Lives in [place] with her . Grew up in [facility]. Time Spent with Patient Time Spent with Patient: 45-69 minutes Time was spent: preparing to see the patient(eg.review tests), obtaining and/or reviewing separately otained hiistory, ordering medications,tests, procedures, indepentently interpreting results and counseling the patient
--- NOTE | 2023-11-29 11:02 | TELEFU_ITS ---
Date of service: 11/29/23 Time of Service: 10:15 Nutrition Note NOTE: received routine nutrition consult regarding: diabetes education/mgt Pt is 73yo female admitted with distal paresthesia and dizziness/imbalance, bradykinesia. Nutrition-related PMH significant for DMII with current insulin use, CVA in 2017, HLD, HTN. Pt with ~4.8kg wt loss over the last year - states this is was intentional and not concerned.Lives with at home and split food shopping/prepping responsibilities. Last A1C in chart was 9.3% in Jul 2023 - pt and state it came down into 7's again at last check last month. Pt takes eliquis, lantus 18u BID, and lispro sliding scale at meals and m etformin BID, semaglutide weekly SQ.. Uses LibreII CGM but does keep and use glucometer when suspects she needs to double check glucose levels. Managed with same Lantus rx and moderate sliding scale insulin aspart at meals during this admission. Pt feels confident in how to manage her glucose but finds sometimes gets off track with her habits. Declined detailed diabetes education today but did take my card to contact if desiring outpatient services. Time Spent in Nutritional Counseling and Treatment: 10 min
[2023-11-29 11:25] VITALS: BP 142/70; PULSE 74; RESP 20; TEMP 36.5; O2SAT 94
--- NOTE | 2023-11-29 13:59 | PDOC.CMDIS ---
Date of service: 11/29/23 Time of Service: 13:59 LACE Index Scoring Tool Questions: Length of Stay (in days): 1 Was the patient admitted via the E.D.?: Yes Comorbidities: Previous M.I., Cerebrovascular Disease and Diabetes w/o Complication E.D. Visits: 1 Answers: Total Score: 8 Risk of Readmission: Low Risk Care Management Discharge Plan Reason for Hospitalization: TIA Discharge Plan: Joanna will be discharged home with no new services. She will follow up with her PCP and neurologist and transport with her . Patient/Family Education Needs: Review discharge instructions, discuss Ask Me Three SDOH Health Related Social Needs: No Data to Display
== END 2023-11-29 12:44 | disposition home or self-care (01) ==
LOC: ER 22:24 → MS 11-29
PROVIDERS: Admitting Provider Family Medicine; Emergency Provider Nurse Practitioner Family; PCP Family Medicine; Visit Provider Family Medicine
DX: R20.2 Paresthesia of skin (principal); R42 Dizziness and giddiness; R25.8 Other abnormal involuntary movements; R26.89 Other abnormalities of gait and mobility; I48.0 Paroxysmal atrial fibrillation; R74.8 Abnormal levels of other serum enzymes; E11.65 Type 2 diabetes mellitus with hyperglycemia; I44.7 Left bundle-branch block, unspecified; Z79.84 Long term (current) use of oral hypoglycemic drugs; Z79.01 Long term (current) use of anticoagulants; Z79.4 Long term (current) use of insulin; Z79.899 Other long term (current) drug therapy; I25.2 Old myocardial infarction; Z86.73 Personal history of transient ischemic attack (TIA), and cerebral infarction without residual deficits; I10 Essential (primary) hypertension; E78.5 Hyperlipidemia, unspecified; E11.42 Type 2 diabetes mellitus with diabetic polyneuropathy; I42.2 Other hypertrophic cardiomyopathy; I25.10 Atherosclerotic heart disease of native coronary artery without angina pectoris; Z95.818 Presence of other cardiac implants and grafts; E21.3 Hyperparathyroidism, unspecified; F32.A Depression, unspecified; J45.909 Unspecified asthma, uncomplicated; M54.30 Sciatica, unspecified side; R41.3 Other amnesia; M54.12 Radiculopathy, cervical region
CPT/HCPCS: 00123; 36415; 36416; 70496; 70498; 80053; 82962; 93005; 96374; 96375; 99285; 71045; 81003; 81015; 83735; 84484; 85025; 93010; 99222; 99239; G0378; J1200; J1815; J2919; J3490

== ENCOUNTER 2023-12-10 11:54 | Outpatient (RCR) | payer SELFPAY ==
[2023-11-24 16:17] VITALS: BP 135/73; PULSE 73
[2023-11-26 12:33] VITALS: BP 122/68; PULSE 78
== END 2023-12-19 23:59 | disposition home or self-care (01) ==
LOC: CR 11:54
PROVIDERS: PCP Family Medicine; Visit Provider Internal Medicine Cardiovascular Disease
DX: R69 Illness, unspecified (principal)

== ENCOUNTER 2023-12-13 03:07 | Outpatient (CLI) | payer MEDICARE, SELFPAY ==
[2023-12-13 10:02] LABS: Anion Gap 7.3 mmol/L (3-11); BUN 17 mg/dL (7-18); CO2 28.7 mmol/L (21.0-32.0); CREATININE 1.2 mg/dL (0.55-1.02); Calcium 10.1 mg/dL (8.5-10.1); Chloride 106 mmol/L (98-107); Estimated GFR 48.39 (mL/min/1.73m2); Glucose 185 mg/dL (74-106); Potassium 4.7 mmol/L (3.5-5.1); Sodium 142 mmol/L (136-145); TSH (W/Ref FT4) 5.21 uIU/mL (0.36-3.74)
[2023-12-13 10:36] LABS: FREE T4 1.04 ng/dL (0.76-1.46)
[2023-12-14 12:39] LABS: Albumin g/dL 3.8 g/dL (3.6-5.2); Total Protein 6.3 g/dL (6.3-8.2)
[2023-12-14 13:40] LABS: Lyme Ab w Rflx to Lyme Confirm Negative (Negative)
[2023-12-18 11:32] LABS: Pyridoxal 5-Phosphate (PLP), P 4 mcg/L (5-50)
== END 2023-12-13 03:08 | disposition home or self-care (01) ==
LOC: LBO 03:07
PROVIDERS: PCP Family Medicine; Visit Provider Family Medicine
DX: G62.9 Polyneuropathy, unspecified (principal)
CPT/HCPCS: 36415; 80048; 84165; 84207; 84439; 84443; 86618

== ENCOUNTER → 2023-12-16 10:03 | Outpatient (BNVA) | payer MEDICARE, SELFPAY | PROVIDERS: PCP Family Medicine; Referring Provider Family Medicine; Visit Provider Psychiatry & Neurology Neurology | DX: Z86.73 Personal history of transient ischemic attack (TIA), and cerebral infarction without residual deficits (principal); R25.1 Tremor, unspecified; M54.12 Radiculopathy, cervical region; R41.3 Other amnesia; R25.8 Other abnormal involuntary movements; I21.4 Non-ST elevation (NSTEMI) myocardial infarction; R26.89 Other abnormalities of gait and mobility | CPT/HCPCS: 99215 ==

== ENCOUNTER 2023-12-30 13:51 | Outpatient (CLI) | payer MEDICARE, SELFPAY ==
[2023-12-30 10:45] LABS: Abs Immature Grans 0.02 10^3/uL (0.0-0.06); Absolute Basophil Count 0.06 10^3/uL (0.0-0.2); Absolute Eosinophil Count 0.18 10^3/uL (0.0-0.7); Absolute Lymphocyte Count 2.59 10^3/uL (1.2-3.4); Absolute Neutrophil Count 4.96 10^3/uL (1.2-6.7); Basophils % 0.7 %; Eosinophils % 2.1 %; HCT 40.8 % (36.0-46.0); HGB 13.4 g/dL (11.2-15.7); Immature Grans % 0.2 %; Lymphocytes % 30.8 %; MCH 28.3 pg (27.0-33.0); MCHC 32.8 % (32.0-36.0); MCV 86 fL (80-95); MPV 10.3 fL (8.0-11.0); Monocytes % 7.1 %; Neutrophils % 59.1 %; Platelet Count 270 10^3/uL (130-400); RBC 4.73 10^6/uL (3.93-5.22); RDW 13.9 % (11.7-14.6); WBC 8.41 10^3/uL (4.4-10.8)
[2023-12-30 11:13] LABS: NT-proBNP 1109 pg/mL (<300)
[2023-12-30 11:23] LABS: Troponin I 126 ng/L (< or =60)
== END 2023-12-30 13:52 | disposition home or self-care (01) ==
LOC: LBO 13:52
PROVIDERS: PCP Family Medicine; Visit Provider Family Medicine
DX: R06.09 Other forms of dyspnea (principal)
CPT/HCPCS: 36415; 83880; 84484; 85025

== ENCOUNTER 2024-01-14 11:05 | Outpatient (RCR) | payer MEDICARE, SELFPAY ==
[2024-01-05 15:42] VITALS: BP 156/84; PULSE 88
--- OUTSIDE RECORDS SUMMARY | 2024-01-07 11:10 | XMS_ITS | Encounter Summary ---
Author Organization [facility] Address [address] [place] [address] Care Team Providers Care Embedded Developer Name Role Phone Carlos Ha DIRECTOR STATE PHARMACY Unavailable [phone] Elba Jett MD Primary Care Provider [phone] Reason for Visit * Reason Comments Pacemaker/Device Check Medtronic Encounter Details Date Type Department Care Team (Latest Contact Info) Description 06/03/2023 11:30 EST Office Visit [facility] Cardiology Clinic [address] [place] [address] Carlos Ha, DIRECTOR STATE PHARMACY [address] [facility] [address] [place] [address] Chronic heart failure with preserved ejection fraction (HCC-CMS) (Primary Dx); ASCVD (arteriosclerotic cardiovascular disease); Dilated cardiomyopathy (HCC-CMS); Hypertrophic cardiomyopathy (HCC-CMS); AVB (atrioventricular block) Social History Tobacco Use Types Packs/Day Years Used Date Smoking Tobacco: Never Smokeless Tobacco: Never Alcohol Use Standard Drinks/Week Comments Never 0 (1 standard drink = 0.6 oz pur e alcohol) Interpersonal Safety Answer Date Record ed Physically Hurt Never 01/21/2020 Verbally Threaten Not on file 01/21/2020 Sex and Gender Information Value Date Recorded Sex Assigned at Not on file Gender Identity Female 06/01/2019 10:00 EST Sexual Orientation Not on file documented as of this encounter Last Filed Vital Signs Vital Sign Reading Time Taken Comments Blood Pressure 122/81 06/03/2023 1126 EST Pulse 77 06/03/2023 1126 EST Temperature - - Respiratory Rate - - Oxygen Saturation 96% 06/03/2023 1126 EST Inhaled Oxygen Concentration - - Weight 70.3 kg (155 lb) 06/03/2023 1126 EST Height 162.6 cm (5' 4) 06/03/2023 1126 EST Body Mass Index 26.61 06/03/2023 1126 EST documented in this encounter Functional Status Functional Status Response Date of Assess ment Are you deaf or do you have serious difficulty h earing? No 03/15/2023 Are you blind or do you have serious difficulty seeing, even when wearing glasses? No 03/15/2023 Do you have difficulty dress ing or bathing? (5 years old or older) No 03/15/2023 Because of a physical, menta l, or emotional condition, do you have difficulty doing errands alone such as visiting a doctor's office or shopping? (15 years old or older) No 03/15/2023 Cognitive Status Response Date of Assessm ent Because of a physical, menta l, or emotional condition, do you have serious difficulty concentrating, remembering, or making decisions? (5 years old or older) No 03/15/2023 documented as of this encounter Progress Notes * Carlos Ha, DIRECTOR STATE PHARMACY - 06/03/2023 1130 EST CC: Pacemaker/Device Check (Medtronic) HPI: This is a pleasant 73-year-old female who is here for an inpatient follow-up visit. She she was evaluated by Neurology in August 2022 for worsening right leg weakness which was thoughtto be possibly related to CVA. She was started on aspirin 81 mg. During this admission, she was noted to have AVB type I with elevated troponin reported chronically elevated. She had a Cardiology cons ultation who ordered an event monitor worn 10/13/2022-11/12/2022 which showed both AVB type I as wellas periods of 2-1 block with HR 28-30 bpm, one pause lasting 3 seconds, AF burden <1%, and 5 nonsustained runs of ventricular tachycardia. She had been scheduled for repeat MPI but was cancelled as she presented to [facility] ED on the day it was scheduled. She presented to [facility] on with complaints of fatigue, chest tightness, and two syncopal episodes. She was noted to have a significant drop in her hemoglobin 14.1>9.9>7.1 with complaintsof dark stool. She received 2 U RBC's and underwent EDG showing esophagitis and blood clots in stomach. The next morning she had hematemesis. She received another 2 U RBC's, was given Kcentra, and sta rted on Protonix and octreotide. She was then transferred to [facility]. Repeat EDG showed esophagitis, scattered petechia in the body of stomach thought to be source of bleeding, and duodenal ulcer. She was started on BID PPI x8 weeks then daily indefinitely. She was discharged off aspirin and eliquis. Cardiology consult by Dr. Sebastian while she was hospitalized given her multiple acute cardiac issues. Echo with findings consistent with HCM. Ischemic work up could not be pursued given her anemia with acute GIB. LHC recommended to be considered given her chest pain, elevated trop (peak 32), NSVT, and cardiac risk factors (DM, HTN, HLD). She was discharged with repeat MCOT which she has completedand showed NSR average HR 77 bpm, 7 NSVT episodes longest 12 beats, PVC burden 14%, second degree AVB type I no pauses. She was seen in outpatient Cardiology clinic where she was complaining of shortness of breath and chest heaviness with exertion. She was referred for LHC. However, she was readmitted 12/01/2022 with acute decompensated HF and ruled in for NSTEMI. She was transferred to [facility] for LHC 12/08/2022 with severe single vessel coronary artery disease for which she underwent PCI with MADONNA to RCA (90% proximal lesion). Residual disease includes p Ramus 80%, mLCX 50%. She was sent home on clopidogrel, jardiance, losartan, and spironolactone. Cardiac MRI completed 12/04 demonstrated severe, concentric thickening of the left ventricle with complete obliteration of left ventricle during systole. INTERIM HISTORY She reports doing well. Has noticed a significant difference in her activity tolerance since having Bi-V ICD inserted. Some shortness of breath but improving. Is participating in Cardiac Rehab Weight stable. Denies orthopnea, PND, or syncope. Her rash has resolved. She is off Plavix and tolerating losartan [facility] Cryptogenic stroke (left MCA) 2016 with Medtronic loop 2016. ASA recently started during admission at [facility] 08/2022 Paroxysmal atrial fibrillation (2 hr episode noted on monitor 2018.Started on Eliquis. No further episodes noted) NSVT (1 episode August 2019 with negative MPI) AVB type I and II - noted on surveillance monitor during recent admission Hypertension, Hyperlipidemia (LDL 65 in 2021: She has been intolerant to multiple statins now on REPATHA) DM2 (A1C 7.1) CKD III Kidney stone 11/02 passed Duodenal ulcer and esophagitis with acute GIB admit to [facility] 11/11-11/14. D/C on Protonix. ?Parkinson's Disease HCM -septal thickness 17 mm with very high burden LGE on MRI, epsides of NSVT. SH Lives in [place] with spouse Has three grown children She does not smoke or consume alcohol Usually swims 3x weekly when she is feeling well. FH: Denies early family history of CAD or SCD MEDICATIONS: Medications Prior to Today's Visit Medication Sig acetaminophen (TYLENOL) 650 mg CR tablet 2 tab(s) orally twice a day, only as needed apixaban (ELIQUIS) 5 mg tablet Take 1 Tablet by mouth 2 times daily. BD ULTRA-FINE MICRO PEN NEEDLE 32 gauge x 1/4 needle blood glucose meter by [facility] (non-drug; combo route) route daily. One touch verio meter or best covered by insurance. cetirizine (ZYRTEC) 10 mg tablet Take 1 Tablet by mouth daily. Cholecalciferol, Vitamin D3, 10 mcg (400 unit) tablet Take 1 Tablet by mouth daily. clopidogreL (PLAVIX) 75 mg tablet Take 1 Tablet by mouth daily. (Patient not taking: Reported on 05/06/2023) cyanocobalamin (VITAMIN B-12) 500 mcg tablet Take 1 Tablet by mouth daily. empagliflozin (JARDIANCE) 10 mg tablet Take 1 Tablet by mouth daily. (Patient not taking: Reported on 03/31/2023) flash glucose scanning reader (FREESTYLE VICKY 2 READER) mis 1 Device by [facility] (non-drug; combo route) route daily. Dispense one reader FREESTYLE VICKY 2 SENSOR kit USE 1 SENSOR EVERY 14 DAYS gabapentin (NEURONTIN) 300 mg capsule Take 2 Capsules by mouth 2 times daily. HUMALOG KWIKPEN INSULIN 100 unit/mL injectable pen 100-150 1 unit, 150-200 2 units, 200-250 3 units, 250-300 4 units insulin glargine (LANTUS SOLOSTAR U-100 INSULIN) 100 unit/mL (3 mL) injection pen Inject 31 Units into the skin daily. lactobacillus combination no.8 3 billion cell capsule Take 1 Capsule by mouth daily. lancets/blood glucose strips (ONE TOUCH COMBO MISC) -to test blood sugar - twice daily losartan (COZAAR) 25 mg tablet Take 1 Tablet by mouth at bedtime. magnesium oxide (MAG-OX) 400 mg (241.3 mg magnesium) tablet Take 1 Tablet by mouth daily. metFORMIN (GLUCOPHAGE-XR) 750 mg ER tablet Take 1 Tablet by mouth 2 times daily. metoprolol SUCCinate (TOPROL-XL) 25 mg tablet Take 1 Tablet by mouth daily. ONETOUCH ULTRA BLUE TEST STRIP test strips TEST BLOOD GLUCOSE THREE TIMES DAILY OZEMPIC 1 mg/dose (4 mg/3 mL) pen injector Inject 1 mg into the skin once a week. Sundays pantoprazole (PROTONIX) 40 mg tablet Take 1 Tablet by mouth 2 times daily. REPATHA SYRINGE 140 mg/mL syringe INJECT 1 SYRINGE SUBCUTANEOUSLY EVERY 2 WEEKS spironolactone (ALDACTONE) 25 mg tablet Take 0.5 Tablets by mouth daily. Dial a [employer] No facility-administered medications prior to visit. ALLERGIES: Allergies Allergen Reactions Cephalexin Anaphylaxis Other reaction(s): Rash Hydroxychloroquine Anaphylaxis Iodinated Contrast Media Other reaction(s): Anaphylaxsis ( TOLERATED WITH PREMEDS 05/05/17) Atenolol Other (See Comments) Brilinta [Ticagrelor] SOB Ciprofloxacin Farxiga [Dapagliflozin] Gi side effects Iodine And Iodide Containing Products Hives Lisinopril Other reaction(s): Unknown Losartan rash Oxycodone-Acetaminophen Other reaction(s): Hallucinations Plavix [Clopidogrel] Propoxyphene N-Acetaminophen Other reaction(s): Hallucinations Lqhjlwm-Srl-Bxk Reductase Inhibitors Trulicity [Dulaglutide] Gi Side effect ROS: The rest of the pertinent 10 point review of systems is negative other than mentioned in the HPI PHYSICAL EXAM: Vitals: 12/14/23 1126 BP: 122/81 BP Cuff Location: Left arm BP Patient Position: Sitting BP Cuff Sizes: Adult, large Pulse: 77 SpO2: 96% Weight: 70.3 kg (155 lb) Height: 162.6 cm (64) GENERAL APPEARANCE: No acute distress. Appears pale and fatigued HEENT: PERRLA. EOMI. Conjunctiva clear. Sclera anicteric NECK: Supple with full range of motion. CHEST: Normal shape and expansion HEART: Regular rate and rhythm no murmurs LUNGS: Clear to auscultation bilaterally, unlabored ABDOMEN: Soft, nontender, nondistended. Positive bowel sounds in all 4 quadrants. EXTREMITIES: No clubbing, cyanosis, or edema. PERIPHERAL PULSES: Lower extremity pulses 2+ bilaterally NEUROLOGIC EXAM: Alert and oriented x3. 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 (See scanned documentation associated with this visit for full details) There were: one high ventricular rate episodes. NSVT lasting 2 seconds AMS: none AF burden: none AT/AF: Patient is taking daily Eliquis Pacer Incision: CDI, well approximated and without erythema/tenderness/drainage DATA: LA PET 12/07/2022 Perfusion: There was a moderate intensity, medium sized reversible perfusion defect in the basal inferior, basal inferoseptal and mid inferior wall(s). There is evidence of transient ischemic dilation (TID). Function: Global LV function is mildly reduced. Post-stress ejection fraction is 45 %. There is washypokinesis of the inferior wall . Stress ECG: Stress ECG was negative. Stress data: Maximal heart rate during stress was 77 (51 % of MPHR). There is severe coronary calcification. Agaston score: 1,073.[address] finding(s): small pericardial effusion. The myocardial flow reserve was 1.89 for the LAD, which was mildlyabnormal. The myocardial flow reserve was 1.65 for the LCX, which was abnormal. The myocardial flow reserve was 1.16 for the RCA, which was abnormal. The overall myocardial flow reserve was 1.68 which was abnormal. Perfusion Defect: There was evidence of transient ischemic dilation (TID) with a value of 1.4 [facility] 12/08/2022 CORONARY ARTERIES: The coronary circulation is right dominant. Left main: Minor luminal irregularities. LAD: Minor luminal irregularities. Ramus intermedius: Proximal vessel lesion: There is an 80% stenosis. Left circumflex: Mid-vessel lesion: There is a 50% stenosis. Right coronary: Mid-vessel lesion: There is a 90%de kane stenosis. This lesion is ulcerated and not a bifurcation lesion. There is KEERTHI grade 3 flow (brisk flow) across the lesion. The distal vessel supplies a large vascular territory. The lesion is a likely culprit for the patient's clinical presentation and an ACC/AHA type C high risk lesion for intervention. The lesion was stented (see 1st lesion intervention), with balloon angioplasty. Following intervention, the lesion has a residual stenosis of 0%, an excellent angiographic appearance, and KEERTHI grade 3 flow (brisk flow). There were no site complications. Right posterior descending: Ostial lesion: There is a 50% stenosis. ECHOCARDIOGRAM 12/11/2022 Left Ventricle The left ventricular cavity was normal in size. Left ventricular systolic function was normal with an ejection fraction of 60-65%. Findings consistent with left ventricular diastolic dysfunction. Doppler parameters are consistent with high ventricular filling pressure. There was severe septal asymmetric hypertrophy of the left ventricle. Left ventricular wall motion was normal; there were no regional wall motion abnormalities. The left ventricular outflow tract showed a velocity flow profile with a normal, non-obstructive pattern. Right Ventricle The right ventricular cavity was normal in size. Right ventricular systolic function was normal. There was right ventricular hypertrophy. Left Atrium Left atrial cavity was mildly dilated. Right Atrium The right atrium was normal in size. Aortic Valve The aortic valve structure was trileaflet. The aortic leaflets moderately calcified. There was mild aortic valve stenosis. There was no aortic valve regurgitation. AV Peak Velocity: 2.0 m/s. AV Mean Gradient: 9 mmHg. Mitral Valve Mitral valve structure was normal. There was moderate annular calcification. There wasmild mitral regurgitation. There was no significant mitral valve stenosis. MV mean gradient: 4 mmHg. Tricuspid Valve Tricuspid valve structure was normal. There was no significant tricuspid valve regurgitation. There was no tricuspid valve stenosis. Pulmonic Valve There was no pulmonic valve regurgitation. There was no pulmonic valve stenosis. Pulmonic Artery Unable to assess PA pressure. Ascending Aorta The aortic root was normal in size. The ascending aorta was mildly dilated. Pericardium A trivial pericardial effusion was identified along the right atrial free wall. IVC/SVC The inferior vena cava was dilated. CARDIAC MRI 12/04/2022 IMPRESSION 1. 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 The distal apex () is concentrically involved by delayed enhancement. Left ventricular ejection fraction is 60% and end diastolic wall mass is approximately 175 g. 2. The distal portion of the left ventricle cavity completely obliterates in systole, however thereis no evidence of abnormal mitral valve motion or left ventricular outflow tract obstruction. 3. Findings compatible with aortic stenosis, gradient is 14 mmHg. MCOT 30 days 11/30/2022 SR with average HR 77 bmp (lowest 50 bpm) Frequent multiform PVCs (14%) and 7 nonsustained VT runs, longest 12 consecutive beats Moderately frequent PACs Pt conducts with AV delay and IVCD. Heart Block occurred 17 time(s) the most severe 2?? type 1; slowest 50 BPM Lab Results Component Value Date HGB 10.5 (L) 01/27/2023 HCT 36.1 01/27/2023 PLT 419 (H) 01/27/2023 NTBNP 1,360 (H) 01/27/2023 CHOL 107 12/03/2022 HDL 40 (L) 12/03/2022 LDL 156 (H) 06/05/2019 LDLBASE 29 12/03/2022 TRIG 188 (H) 12/03/2022 HGBA1C 7.1 (H) 11/11/2022 ASSESSMENT/PLAN 1. CAD recent NSTEMI (12/08/22) 90% stenosis of RCA found on angiography. [facility] completed 12/08/22 with successful RCA stenting. -Off Plavix. Rash improved. -Continue BB and Repatha -Reports feeling clinically improved. Will plan to refer back to Cardiac Rehab 2. HCM severe asymmetric hypertrophy of LV with septal thickness 1.7 cm. ACC Stage C, NYHA III HFpEF -Genetic testing pending -Low dose BB. Spironolactone up titrated to 25 mg daily -Improved symptoms with Bi-V ICD TALENT ACQUISITION SOURCER 3. NSVT. -Medtronic Bi-V ICD implant. No episodes of VT seen on program evaluation today -Reviewed shock plan 4. PAF. -Eliquis has been resumed. H and H remains stable. -No episodes of AF noted on device evaluation today 5. Second degree AVB type I and II. -Device program evaluation with iterative adjustments were made to test device function and select optimal permanent programmed values with analysis, review, and report. The leads and device are functioning normally. 6. HTN. Well controlled. 7. Hyperlipidemia. LDL treated to target on REPATHA. Statin intolerant -Continue Repatha. Target LDL <70 8. DM2 9. CVA (left MCA) 2017. Aspirin DC during recent admission d/t duodenal ucler 10. . Mild on most recent echo 11. Anemia GI blood loss 12. ? Drug rash I spent a total of 40 minutes on the date of this encounter which includes time with the patient, time reviewing medical records and laboratory results, time updating the chart information, and time composing this note. No procedures were performed at the time of the visit. Carlos Ha NP documented in this encounter Plan of Treatment Upcoming Encounters Date Type Department Care Team (Late st Contact Info) Description 03/08/2024 9:30 EDT Ancillary Procedure [facility] [place] [address] [address] [place], [place] [id number] 03/08/2024 10:15 EDT Ancillary Procedure [facility] Card[facility] [address] [place] [address] [place] [address] 04/05/2024 10:[address] [facility] [address] [place] [address] 04/05/2024 10:[address] [facility] [address] [place] [phone] Carlos Ha NP [address] [place] [address] [address] [place] [phone] documented as of this encounter Visit Diagnoses Diagnosis Chronic heart failure with preserved ejection fraction (HCC-CMS)- Primary ASCVD (arteriosclerotic cardiovascular disease) Unspecified cardiovascular disease Dilated cardiomyopathy (HCC-CMS) Other primary cardiomyopathies Hypertrophic cardiomyopathy (HCC-CMS) Other hypertrophic cardiomyopathy AVB (atrioventricular block) Atrioventricular block, unspecified documented in this encounter Discontinued Medications Medication Sig Discontinue Reason Start Date End Da te clopidogreL (PLAVIX) 75 mg tablet Take 1 Tablet by mouth daily. Side effects 12/10/2022 06/03/2023 documented as of this encounter Orders Lab Orders Without Results Count Last Ordered D ate First Ordered Date BASIC METABOLIC PANEL (BMP) 1 06/03/2023 documented in this encounter Care Teams Embedded Developer Relationship Specialty Start Date End Date Elba Jett MD [address] [place] [phone] PCP - General Family Medicine - Primary Care 05/18/23 Carlos Ha NP [address] [place] [address] [address] [place] [address] Consulting Clinician Cardiovascular Disease 09/14/21 documented as of this encounter
--- OUTSIDE RECORDS SUMMARY | 2024-01-07 11:10 | XMS_ITS | Encounter Summary ---
Author Organization [facility] Address [address] [place] [address] Care Team Providers Care Emergency Room Clinician Name Role Phone Carlos Ha EFFICIENCY MINER BLASTING Unavailable Elba Jett MD Primary Care Provider [phone] Reason for Visit * Reason Comments Hyperlipidemia Atrial Fibrillation Hypertension Encounter Details Date Type Department Care Team (Latest Contact Info) Description 10/05/2023 15:00 EDT Office Visit [facility] [address] [place] [address] Carlos Ha, EFFICIENCY MINER BLASTING [address] [facility] [address] [place] [address] Cardiomyopathy ([facility]-CMS) (Primary Dx) Social History Tobacco Use Types Packs/Day Years [...] Sign Reading Time Taken Comments Blood Pressure 122/80 10/05/2023 1505 EDT Pulse 78 10/05/2023 1505 EDT Temperature - - Respiratory Rate - - Oxygen Saturation 96% 10/05/2023 1505 EDT Inhaled Oxygen Concentration - - Weight 71.7 kg (158 lb) 10/05/2023 1505 EDT Height 162.6 cm (5' 4) 10/05/2023 1505 EDT Body Mass Index 27.12 10/05/2023 1505 EDT documented in this encounter Functional Status Functional [...] this encounter Progress Notes * Carlos Ha, EFFICIENCY MINER BLASTING - 10/05/2023 1500 EDT CC: Hyperlipidemia, Atrial Fibrillation , and Hypertension HPI: This is a pleasant 73-year-old female [...] but was cancelled as she presented to [facility] ED on the day it was scheduled. She presented to [facility] on with complaints of fatigue, chest [...] and octreotide. She was then transferred to [facility]. Repeat EDG showed esophagitis, scattered petechia in [...] in for NSTEMI. She was transferred to [facility] for LHC 12/08/2022 with severe single vessel [...] activity tolerance since having Bi-V ICD inserted. She does have some fatigue but is able to do her activities of daily living without concerning CV complaints. She has signed up for Phase III Cardiac Rehab [facility] Cryptogenic stroke (left MCA) 2016 with Air Roboticstronic loop 2017. ASA recently started during admission at [facility] 08/2022 Paroxysmal atrial fibrillation (2 hr episode noted on monitor 2018.Started on Eliquis. No further episodes noted) NSVT (1 episode August 2019 with negative MPI) AVB type I and II - noted on neurological surgery teacher during recent admission Hypertension, Hyperlipidemia (LDL 65 in 2021: She has been intolerant to multiple statins now on REPATHA) DM2 (A1C 7.1) CKD III Kidney stone 11/02 passed Duodenal ulcer and esophagitis with acute GIB admit to [facility] 11/11-11/14. D/C on Protonix. ?Parkinson's Disease HCM -septal thickness 17 mm with very high burden LGE on MRI, epsides of NSVT. SH Lives in [place] with spouse Has three grown children She [...] x 1/4 needle blood glucose meter by [facility] (non-drug; combo route) route daily. One touch verio meter or best covered by insurance. cetirizine (ZYRTEC) 10 mg tablet Take 1 Tablet by mouth daily. Cholecalciferol, Vitamin D3, 10 mcg (400 unit) tablet Take 1 Tablet by mouth daily. cyanocobalamin (VITAMIN B-12) 500 mcg tablet Take 1 Tablet by mouth daily. empagliflozin (JARDIANCE) 10 mg tablet Take 1 Tablet by mouth daily. (Patient not taking: Reported on 10/05/2023) flash glucose scanning reader (FREESTYLE VICKY 2 READER) mis 1 Device by [facility] (non-drug; combo route) route daily. Dispense one [...] tablet Take 0.5 Tablets by mouth daily. [employer] [facility] [employer] No facility-administered medications prior to visit. ALLERGIES: [...] Plavix [Clopidogrel] Propoxyphene N-Acetaminophen Other reaction(s): Hallucinations [id number] Reductase Inhibitors Trulicity [Dulaglutide] Gi Side effect ROS: The rest of the pertinent 10 point review of systems is negative other than mentioned in the HPI PHYSICAL EXAM: Vitals: 10/05/23 1505 BP: 122/80 Pulse: 78 SpO2: 96% Weight: 71.7 kg (158 lb) Height: 162.6 cm (64) GENERAL APPEARANCE: [...] EXAM: Alert and oriented x3. Gait normal [facility] Device Visit Property Custodian: Medtronic Device Type: Multiple CUSTOMER AGENT-D Service: Office Visit Implant Date: 03/15/2023 Indication: AVB HCM Battery Longevity: 8 years Underlying rhythm: sinus bradycardia with intermittent AVB Mode: DDD URL/LRL: 60/130 bpm Atrial Paced: 6.1% Ventricle Paced: 97.2% (RV to HIS bundle; LV to RV apical septum) Lead Impedance, threshold, and sensing testing all within normal parameters. (See scanned documentation associated with this visit for full details) There were: five high ventricular rate episodes. NSVT lasting 2 seconds AMS: 1 episodes (2 minutes) AF burden: none AT/AF: Patient is taking daily Eliquis Pacer Incision: CDI, well approximated and without erythema/tenderness/drainage DATA: NM PET 12/07/2022 Perfusion: There was a moderate [...] dilation (TID) with a value of 1.4 [facility] 12/08/2022 CORONARY ARTERIES: The coronary circulation [...] from base to apex. The distal apex ([id number]) is concentrically involved by delayed enhancement. Left [...] 36.1 01/27/2023 PLT 419 (H) 01/27/2023 NTBNP 1,740 (H) 06/03/2023 CHOL 107 12/03/2022 HDL 40 (L) 12/03/2022 LDL 156 (H) 06/05/2019 LDLBASE 29 12/03/2022 TRIG 188 (H) 12/03/2022 HGBA1C 7.1 (H) 11/11/2022 ASSESSMENT/PLAN 1. CAD recent NSTEMI (12/08/22) 90% stenosis of RCA found on angiography. [facility] completed 12/08/22 with successful RCA stenting. -Off Plavix. Rash improved. -Continue BB and Repatha -Reports feeling clinically improved. Encouraged her to continue activity as tolerated. She has signed up for another session of cardiac rehab 2. HCM severe asymmetric hypertrophy of LV with septal thickness 1.7 cm. ACC Stage C, NYHA III HFpEF -Genetic testing pending -Low dose BB and spironolactone -Improved symptoms with Bi-V ICD CUSTOMER AGENT -Scheduled to see Dr. Sebastian 02/2024 with echo prior to appointment. 3. NSVT. -Medtronic Bi-V ICD implant. Four episodes of NSVT seen on program evaluation today. Longest episode 2 seconds -Reviewed shock plan 4. PAF. -Eliquis has been resumed. H and H remains stable. 5. Second degree AVB type I and [...] echo 11. Anemia GI blood loss 12. Drug rash -resolved. Related to Plavix I spent a total of 40 minutes [...] Info) Description 03/08/2024 9:30 EDT Ancillary Procedure [facility] Cardiology - [address] [place], [place] [phone] 03/08/2024 10:15 EDT Ancillary Procedure [facility] Cardiology - [address] [place] [address] 04/05/2024 10:00 EDT Ancillary Procedure [facility] Cardiology Clinic [address] [place] [phone] 04/05/2024 10:00 EDT Office Visit [facility] Cardiology Clinic [address] [place] [phone] Carlos Ha NP [address] [place] [address]-[address] [place] [address] documented as of this encounter Procedures Procedure Name Priority Date/Time Associated Diagnosis Comments CARDIAC IMPLANT CHECK - IN CLINIC Routine 10/05/2023 15:54 EDT Cardiomyopathy ([facility]) documented in this encounter Results * CARDIAC IMPLANT CHECK-IN CLINIC-ICD BIVENTRIC CHAMBER W/PROG (10/05/2023 15:54 EDT) Anatomical Region Laterality Modality Device Narrative 10/05/2023 15:54 EDT I have reviewed the ICD interrogation. ??I agree with the findings. See office note associated with today's visit for device details. Carlos Ha NP Procedure Note Carlos Ha NP - 10/05/2023 I have reviewed the ICD interrogation. I agree with the findings. Seeoffice note associated with today's visit for device details. Carlos Ha NP Carlos Ha NP CV IMPLANTABLE CARDI AC DEVICE documented in this encounter Visit Diagnoses Diagnosis Cardiomyopathy (HCC-CMS)- Primary Other primary cardiomyopathies documented in this encounter Care Teams Emergency Room Clinician Relationship Specialty Start Date End Date Elba Jett MD [address] [place] [phone] PCP - General Family Medicine - Primary Care 05/18/23 Carlos Ha NP [address] [place] [address] [address] [place] [address] Consulting Clinician Cardiovascular Disease 09/14/21 documented as of this encounter
--- OUTSIDE RECORDS SUMMARY | 2024-01-07 11:10 | XMS_ITS | Encounter Summary ---
Author Organization [facility] Address [address] [place] [address] Care Team Providers Care Supervisor Sewer Maintenance Name Role Phone Carlos Ha TELESCOPE MAINTENANCE Unavailable [phone] Elba Jett MD Primary Care Provider Reason for Visit * Reason Onset Date Comments Patient Outreach 06/03/2023 Encounter Details Date Type Department Care Team (Late st Contact Info) Description 06/03/2023 Telephone [facility] Clinic [address] [place] [address] Carlos Ha, TELESCOPE MAINTENANCE [address] [facility] [address] [place] [address] Patient Outreach Social History Tobacco Use Types Packs/Day Years [...] on file documented as of this encounter Functional Status Functional Status Response [...] No 03/15/2023 documented as of this encounter Miscellaneous Notes * Telephone Encounter - Nestor Espinosa - 06/04/2023 1040 EST Pts spouse called, he is concerned about her restarting the Jardiance as it causes UTI's for pt. They are questioning if she should restart. Please call back to discuss. * Telephone Encounter - Fan Marinelli RN - 06/03/2023 1634 EST Notified of test results. Patient advised to increase Spironolactone, per AC. She verbalized understanding. * Telephone Encounter - Fan Marinelli RN - 06/03/2023 1631 EST Images from the original note were not included. Carlos Ha NP You 2 hours ago (14:02) No she does not need repeat device check as I did it today during our appointment. Can you also ask her to confirm whether or not she is taking Jardiance. Carlos Patient informed she can cancel device check scheduled at [facility]. She is not currently taking Jardiance. RUTH to Carlos * Telephone Encounter - Carlos Ha NP - 06/03/2023 1404 EST Can you also have her increase her Spironolactone to 25 mg daily. Labs look good. * Telephone Encounter - Fan Marinelli RN - 06/03/2023 1241 EST Carlos- Does the patient need to have device checked in 2 weeks at [facility] Card[facility]? * Telephone Encounter - Natalie Aguirre - 06/03/2023 1203 EST Lefty and Joanna came to check out and wanted to know if Joanna's Device check that is scheduled with [facility]iology on 06/18 is still needed. Joanna stated that she thought that she had her device checked at today's appointment. Patient asking that I give her a call back when I find out if her [facility] appointment is needed. documented in this encounter Plan of Treatment Upcoming Encounters Date Type Department Care Team (Late st Contact Info) Description 03/08/2024 9:30 EDT Ancillary Procedure [facility] Cardiology - [address] [place] [address] 03/08/2024 10:15 EDT Ancillary Procedure [facility] Cardiology - [address] [place] [address] 04/05/2024 10:00 EDT Ancillary Procedure [facility] Cardiology Clinic [address] [place] [phone] 04/05/2024 10:00 EDT Office Visit [facility] Cardiology Clinic [address] [place] [phone] Carlos Ha NP [address] [place] [address]-[address] [place] [address] documented as of this encounter Visit Diagnoses Not on filedocumented in this encounter Care Teams Supervisor Sewer Maintenance Relationship Specialty Start Date End Date Elba Jett MD [address] [place] [address] PCP - General Family Medicine - Primary Care 05/18/23 Carols Ha NP [address] [place] [address] [phone] Consulting Clinician Cardiovascular Disease 09/14/21 documented as of this encounter
--- OUTSIDE RECORDS SUMMARY | 2024-01-07 11:10 | XMS_ITS | Encounter Summary ---
Author Organization [facility] Address [address] [place] [address] Care Team Providers Care Textile Science Technician Name Role Phone Carlos Ha DRYWALL APPLICATION SUPERVISOR Unavailable [phone] Elba Jett MD Primary Care Provider [phone] Encounter Details Date Type Department Care Team (Late st Contact Info) Description 12/13/2023 Lab Requisition [facility] Pathology & Laboratory Medicine - [facility] [address] [place], [place] [phone] Outr Resulting Lab, Provider Social History Tobacco Use Types Packs/Day Years [...] No 03/15/2023 documented as of this encounter Plan of Treatment Upcoming Encounters Date Type Department Care Team (Late st Contact Info) Description 03/08/2024 9:30 EDT Ancillary Procedure [facility] Cardiology - [address] [place], [place] [phone] 03/08/2024 10:15 EDT Ancillary Procedure [facility] Cardiology - [facility] [address] [place] [address] 04/05/2024 10:00 EDT Ancillary Procedure [facility] Cardiology Clinic [address] [place] [phone] 04/05/2024 10:00 EDT Office Visit [facility] Cardiology Clinic [address] [place] [phone] Carlos Ha, RAHEEM [address] [place] [address]-[address] [place] [address] documented as of this encounter Procedures Procedure Name Priority Date/Time Associated Diagnosis Comments SPEP, INCLUDES QUANTITATION OF MONOCLONAL SPIKE PERFORMABLE Today 12/13/2023 9:14 EDT LYME AB Routine 12/13/2023 9:14 EDT SPEP, INCLUDES QUANTITATION OF MONOCLONAL SPIKE Routine 12/13/2023 9:14 EDT PROTEIN, TOTAL Today 12/13/2023 9:14 EDT documented in this encounter Results * (ABNORMAL) SPEP, INCLUDES QUANTITATION OF MONOCLONAL SPIKE PERFORMABLE (12/13/2023 9:14 EDT) Albumin % 60.0 55.8 - 66.1 % 12/14/2023 12:34 [facility] Albumin g/dL 3.8 3.6 - 5.2 g/dL 12/14/2023 12:34 [facility] Alpha-1 % 4.9 2.9 - 4.9 % 12/14/2023 12:34 [facility] Alpha-1 g/dL 0.30 0.15 - 0.40 g/dL 12/14/2023 12:34 [facility] Alpha-2 % 11.4 7.1 - 11.8 % 12/14/2023 12:34 [facility] Alpha-2 g/dL 0.70 0.50 - 1.00 g/dL 12/14/2023 12:34 [facility] Beta % 13.4(H) 8.4 - 13.1 % 12/14/2023 12:34 [facility] Beta g/dL 0.80 0.60 - 1.20 g/dL 12/14/2023 12:34 [facility] Gamma % 10.3(L) 11.1 - 18.8 % 12/14/2023 12:34 [facility] Gamma g/dL 0.60 0.60 - 1.60 g/dL 12/14/2023 12:34 [facility] SPEP Comment No apparent monoclonal protein seen on serum electrophoresis 12/14/2023 12:34 [facility] Comment:See scanned/suppleme ntary report. Total Protein 6.3 6.3 - 8.2 g/dL 12/14/2023 12:34 [facility] Blood VENOUS BLOOD / Unknown 12/13/2023 9:14 EDT 12/13/2023 17:12 EDT Provider Outr Resulting Lab CHEMISTRY & BLOOD GAS ORDERABLES [facility] [address] [place], [place] [phone] * PROTEIN, TOTAL (12/13/2023 9:14 EDT) Blood VENOUS BLOOD / Unknown 12/13/2023 9:14 EDT 12/13/2023 17:12 EDT Provider Outr Resulting Lab CHEMISTRY & BLOOD GAS ORDERABLES Performing Organization Address City/[facility]/ZIP Co de Phone Number [facility] [address] [place] [address] * LYME AB (12/13/2023 9:14 EDT) Lyme Ab Negative Negative 12/14/2023 13:36 EDT [facility] Blood VENOUS BLOOD / Unknown 12/13/2023 9:14 EDT 12/13/2023 17:12 EDT Provider Outr Resulting Lab IMMUNOLOGY A ND SEROLOGY ORDERABLES Performing Organization Address [facility] Co de Phone Number [facility] [address] [place] [address] documented in this encounter Visit Diagnoses Not on filedocumented in this encounter Care Teams Textile Science Technician Relationship Specialty Start Date End Date Elba Jett MD [address] [place] [phone] PCP - General Family Medicine - Primary Care 05/18/23 Carlos Ha NP [address] [place] [address] [address] [place] [address] Consulting Clinician Cardiovascular Disease 09/14/21 documented as of this encounter
--- OUTSIDE RECORDS SUMMARY | 2024-01-07 11:10 | XMS_ITS | Encounter Summary ---
Author Organization [facility] Address [address] [place] [address] Care Team Providers Care Transportation Operations Manager Name Role Phone Carlos Ha CONSTRUCTION CONTROLLER Unavailable [phone] Elba Jett MD Primary Care Provider [phone] Encounter Details Date Type Department Care Team (Late st Contact Info) Description 06/15/[address] [address] Nurse, [facility] Cardiology Clinic Social History Tobacco Use Types Packs/Day Years [...] Info) Description 03/08/2024 9:30 EDT Ancillary Procedure [facility] Cardiology - [address] [place] [address] 03/08/2024 10:15 EDT Ancillary Procedure [facility] Cardiology - [facility] [address] [place], [place] [phone] 04/05/2024 10:00 EDT Ancillary Procedure [facility] Cardiology Clinic [address] [place] [phone] 04/05/2024 10:00 EDT Office Visit [facility] Cardiology Clinic [address] [place] [phone] Carlos Ha NP [address] [place] [phone] documented as of this encounter Visit Diagnoses Not on filedocumented in this encounter Care Teams Transportation Operations Manager Relationship Specialty Start Date End Date Elba Jett MD [address] [place] [phone] PCP - General Family Medicine - Primary Care 05/18/23 Carlos Ha CONSTRUCTION CONTROLLER [address] [place] [address] [phone] Consulting Clinician Cardiovascular Disease 09/14/21 documented as of this encounter
--- OUTSIDE RECORDS SUMMARY | 2024-01-07 11:10 | XMS_ITS | Encounter Summary ---
Author Organization [facility] Address [address] [place] [address] Care Team Providers Care Furniture Stainer Name Role Phone Carlos Ha LOSS PREVENTION SPECIALIST Unavailable [phone] Elba Jett MD Primary Care Provider [phone] Reason for Visit * (Routine/Next Available) - Authorization Not Required Specialty Diagnoses / Procedures [facility] To Contact Diagnoses Cardiomy[facility] ([facility] Procedures CARDIAC IMPLANT CHECK - IN CLINIC Carlos Ha NP [address] [facility] [address] [address] [facility] Referral ID Status Reason Start Date Expiration Date Visits Requested Visits Authorized [id number] Authorization Not Required 09/28/2023 36 36 Encounter Details Date Type Department Care Team (Late st Contact Info) Description 10/05/2023 15:00 EDT Ancillary Procedure [facility] Cardiology Clinic [address] [place] [address] Social History Tobacco Use Types Packs/Day Years [...] Info) Description 03/08/2024 9:30 EDT Ancillary Procedure [facility] Cardiology - [place] [address] [address] [place], [place] [phone] 03/08/2024 10:15 EDT Ancillary Procedure [facility] Cardiology [place] [address] [place] [address] 04/05/2024 10:00 EDT Ancillary Procedure [facility] Cardiology Clinic [address] [place] [phone] 04/05/2024 10:00 EDT Office Visit [facility] Cardiology Clinic [address] [place] [address] Carlos Ha NP [address] [place] [address] MOB-A [address] [place] [address] documented as of this encounter Procedures Procedure Name Priority Date/Time Associated Diagnosis Comments CARDIAC IMPLANT CHECK - IN CLINIC Routine 10/05/2023 15:54 EDT Cardiomyopathy (HCC-CMS) documented in this encounter Results * CARDIAC [...] DEVICE documented in this encounter Visit Diagnoses Not on filedocumented in this encounter Care Teams Furniture Stainer Relationship Specialty Start Date End Date Elba Jett MD [address] [place] [phone] PCP - General Family Medicine - Primary Care 05/18/23 Carlos Ha NP [address] [place] [address] [address] [place] [phone] Consulting Clinician Cardiovascular Disease 09/14/21 documented as of this encounter
--- OUTSIDE RECORDS SUMMARY | 2024-01-07 11:10 | XMS_ITS | Encounter Summary ---
Author Organization [facility] Address [address] [place] [address] Care Team Providers Care Personal Protection Specialist Name Role Phone Carlos Ha NP Unavailable [phone] Elba Jett MD Primary Care Provider [phone] Reason for Referral * (Routine/Next Available) - Authorization Not Required Specialty Diagnoses / Procedures Referred By Contac t Referred To Contact Diagnoses Cardiomyopathy (HCC-CMS) Procedures CARDIAC IMPLANT CHECK - REMOTE MONITOR Carlos Ha NP [address] [facility] [address] [place] [address] [facility] Referral ID Status Reason Start Date Expiration Date Visits Requested Visits Authorized [id number] Authorization Not Required 09/28/2023 36 36 * (Routine/Next Available) - Authorization Not Required Specialty Diagnoses / Procedures Referred By Contac t Referred To Contact Diagnoses Cardiomyopathy (HCC-CMS) Procedures CARDIAC IMPLANT CHECK - IN CLINIC Carlos Ha NP [address] [facility] [address] [place] [address] [facility] Referral ID Status Reason Start Date Expiration Date Visits Requested Visits Authorized [id number] Authorization Not Required 09/28/2023 36 36 Encounter Details Date Type Department Care Team (Late st Contact Info) Description 09/28/2023 Orders Only [facility] - [facility] Cardiology Clinic [address] [place], [place] [id number] Carlos Ha NP [address] [facility] [address] [place] [phone] Cardiomyopathy ([facility]-CMS) (Primary Dx) Social History Tobacco Use Types [...] Info) Description 03/08/2024 9:30 EDT Ancillary Procedure [facility] Cardiology - [facility] [address] [place], [place] [id number] 03/08/2024 10:15 EDT Ancillary Procedure [facility] Cardiology - [facility] [address] [place], [place] [id number] 04/05/2024 10:00 EDT Ancillary Procedure [facility] Cardiology Clinic [address] [place], [place] [address] 04/05/2024 10:00 EDT Office Visit [facility] Cardiology Clinic [address] [place] [address] Carlos Ha NP [address] [facility] [address] [place] [address] Scheduled Orders Name Type Priority Associated Diagnoses Order Schedule CARDIAC IMPLANT CHECK - IN CLINIC Implantable Cardiac Device Routine Cardiomyopathy (HCC-CMS) 36 Occurrences starting 09/28/2023 until 10/19/2027, 1 completed CARDIAC IMPLANT CHECK - REMOTE MONITOR Implantable Cardiac Device Routine Cardiomyopathy (HCC-CMS) 36 Occurrences starting 09/28/2023 until 10/19/2027 documented as of this encounter Results * CARDIAC IMPLANT CHECK-IN [...] cardiomyopathies documented in this encounter Care Teams Personal Protection Specialist Relationship Specialty Start Date End Date Elba Jett MD [address] [place] [phone] PCP - General Family Medicine - Primary Care 05/18/23 Carlos Ha NP [address] [place] [address] [address] [place] [phone] Consulting Clinician Cardiovascular Disease 09/14/21 documented as of this encounter
--- OUTSIDE RECORDS SUMMARY | 2024-01-07 11:10 | XMS_ITS | Encounter Summary ---
Author Organization [facility] Address [address] [place] [address] Care Team Providers Care Authorization Specialist Name Role Phone Carlos Ha LINE O SCRIBE OPERATOR Unavailable [phone] Elba Jett MD Primary Care Provider [phone] Reason for Visit * Reason Onset Date Comments Appointment Related 06/15/2023 Encounter Details Date Type Department Care Team (Late st Contact Info) Description 06/15/[address] [address] Cardiology, Med [address] [place] [address] Appointment Related Social History Tobacco Use Types Packs/Day Years [...] encounter Miscellaneous Notes * Telephone Encounter - Yolanda De Paz - 06/15/2023 1006 EST PAS Message: Lefty called to cancel the appointment for Joanna on 06/18 at 1:00 due to the procedure being performed elsewhere. They do not want to be called back to reschedule. documented in this encounter Plan of Treatment Upcoming Encounters Date Type Department Care Team (Late st Contact Info) Description 03/08/2024 9:30 EDT Ancillary Procedure [facility] Cardiology - [address] [place] [address] 03/08/2024 10:15 EDT Ancillary Procedure [facility] [address] [place] [address] 04/05/2024 10:[address] [facility] Cardiology Clinic [address] [place] [address] 04/05/2024 10:[address] [facility]iology [facility] [address] [place] [address] Carlos Ha NP [address] [place] [address] [address] [place] [address] documented as of this encounter Visit Diagnoses Not on filedocumented in this encounter Care Teams Authorization Specialist Relationship Specialty Start Date End Date Elba Jett MD [address] [place] [phone] PCP - General Family Medicine - Primary Care 05/18/23 Carlos Ha NP [address] [place] [address] [address] Consulting Clinician Cardiovascular Disease 09/14/21 documented as of this encounter
--- OUTSIDE RECORDS SUMMARY | 2024-01-07 11:10 | XMS_ITS | Clinical Summary ---
Author Organization [facility] Address [address] [place] [address] Care Team Providers Care Machine Shop Helper Name Role Phone Carlos Ha LACROSSE COACH Unavailable [phone] Elba Jett MD Primary Care Provider [phone] Allergies Active Allergy Reactions Criticality Noted Date Comments Atenolol Other (See Comments) 03/16/2019 Ticagrelor 04/15/2023 SOB Cephalexin Anaphylaxis High 01/18/2020 Other reaction(s): Rash Ciprofloxacin 01/18/2020 Dapagliflozin 07/10/2020 Gi side effects Hydroxychloroquine Anaphylaxis High 03/16/2019 Iodinated Contrast Media High 01/18/2020 Other reaction(s): Anaphylaxsis ( TOLERATED WITH PREMEDS 05/05/17) Iodine And Iodide Containing Products Hives 01/27/2011 Lisinopril 03/16/2019 Other reaction(s): Unknown Losartan 03/16/2019 rash Oxycodone-Acetaminophen 01/27/2011 Other reaction(s): Hallucinations Clopidogrel 05/18/2023 Propoxyphene N-Acetaminophen 01/27/2011 Other reaction(s): Hallucinations Zbzupyp-Rhr-Qzv Reductase Inhibitors 01/18/2020 Dulaglutide 07/10/2020 Gi Side effect Medications Medication Sig Dispensed Refills Start Date End Date Status lancets/blood glucose strips (ONE TOUCH COMBO MISC) -to test blood sugar - twice daily Active metFORMIN (GLUCOPHAGE-XR) 750 mg ER tablet Take 1 Tablet by mouth 2 times daily. Active cetirizine (ZYRTEC) 10 mg tablet Take 1 Tablet by mouth daily. Active magnesium oxide (MAG-OX) 400 mg (241.3 mg magnesium) tablet Take 1 Tablet by mouth daily. Active gabapentin (NEURONTIN) 300 mg capsule Take 2 Capsules by mouth 2 times daily. Active acetaminophen (TYLENOL) 650 mg CR tablet 2 tab(s) orally twice a day, only as needed Active UNIFINE PENTIPS 04/19/2019 Active HUMALOG KWIKPEN INSULIN 100 unit/mL injectable pen 100-150 1 unit, 150-200 2 units, 200-250 3 units, 250-300 4 units 05/31/2020 Active ONETOUCH ULTRA BLUE TEST STRIP test strips TEST BLOOD GLUCOSE THREE TIMES DAILY 06/06/2020 Active REPATHA SYRINGE 140 mg/mL syringe INJECT 1 SYRINGE SUBCUTANEOUSLY EVERY 2 WEEKS 06/26/2020 Active lactobacillus combination no.8 3 billion cell capsule Take 1 Capsule by mouth daily. 01/18/2020 Active blood glucose meterIndications: Type 2 diabetes mellitus with hyperglycemia, with long-term current use of insulin ([facility]) by [facility] [place]non-drug; combo route) route daily. One touch verio meter or best covered by insurance. 1 Each 10/02/2020 Active flash glucose scanning reader (FREESTYLE VICKY 2 READER) [facility] 1 Device by [facility] (non-drug; combo route) route daily. Dispense one reader 1 Each 10/18/2020 Active OZEMPIC 1 mg/dose (4 mg/3 mL) pen injector Inject 1 mg into the skin once a week. Sundays02/09/2021 Active insulin glargine (LANTUS SOLOSTAR U-100 INSULIN) 100 unit/mL (3 mL) injection pen Inject 31 Units into the skin daily. 07/15/2021 Active BD ULTRA-FINE MICRO PEN NEEDLE 32 gauge x 1/4 needle 06/17/2021 Active cyanocobalamin (VITAMIN B-12) 500 mcg tablet Take 1 Tablet by mouth daily. Active Cholecalciferol, Vitamin D3, 10 mcg (400 unit) tablet Take 1 Tablet by mouth daily. Active FREESTYLE VICKY 2 SENSOR kit USE 1 SENSOR EVERY 14 DAYS 6 Kit 3 12/29/2021 Active pantoprazole (PROTONIX) 40 mg tablet Take 1 Tablet by mouth 2 times daily. 120 Tablet 11/14/2022 Active empagliflozin (JARDIANCE) 10 mg tablet Take 1 Tablet by mouth daily. 30 Tablet 2 12/08/2022 Active Additional Information Patient not taking.Reported on 10/05/2023 spironolactone (ALDACTONE) 25 mg tablet Take 0.5 Tablets by mouth daily. 45 Tablet 3 12/10/2022 Active losartan (COZAAR) 25 mg tablet Take 1 Tablet by mouth at bedtime. 90 Tablet 3 12/09/2022 Active apixaban (ELIQUIS) 5 mg tablet Take 1 Tablet by mouth 2 times daily. 03/18/2023 Active metoprolol SUCCinate (TOPROL-XL) 25 mg tablet Take 1 Tablet by mouth daily. 30 Tablet 11 05/18/2023 Active Active Problems Patient Care Coordination No te Formatting of this note migh t be different from the original. 2021-09-16 [facility] MGP Verbal BRUNA: permission to speak with Lefty Patricia Hart (.) Patient has given permission for [facility] to verbally discuss the following information with Lefty Hart and Justin Avilauart/Son who has the following relationship to the patient: Spouse/Partner: Scheduling/Appt/Billing/Payment Information (does not include clinical information unless specifically indicated with separate option) Medical Information including symptoms, diagnosis, medications, test results and treatment plan (does not include Mental Health unless specifically indicated with separate option) Permission remains in effect until the patient elects to revoke it. Problem Noted Date Diagnosed Date Drug rash 04/15/2023 Last Assessment & Plan: Plan 1. Discontinue Losartan. Added to Allergy list 2. Continue off Jardiance due to UTI 3. Restart Plavix 75 mg daily. She will call office if rash returns. PAF (paroxysmal atrial fibrillation) ([facility]) 0 02/16/2023 ASCVD (arteriosclerotic cardiovascular disease) 12/08/2022 Chronic heart failure with p reserved ejection fraction ([facility]) 12/01/2022 AVB (atrioventricular block) 11/24/2022 Gastrointestinal hemorrhage 11/11/2022 Fatigue 12/04/2020 Last Assessment & Plan: ?cardiac vs orthostatic hypotension vs glucose regulation. Has upcoming ECHO scheduled. Discussed checking BP at home with lightheadedness. Has upcoming visit with PCP for further w/up. Will reach out to cryogenics engineer as well. We did discuss giving her body time to adjust to BG's normalizing, did lower lantus and humalog today. Osteopenia after menopause 10/02/2020 Last Assessment & Plan: Get updated DEXA scan at same clinic [facility]. Ordered faxed. Request disk of images to bring to next visit. Continue with DEXA every 2 years. Hypercalcemia 10/02/2020 Last Assessment & Plan: Stable. Primary hyperparathyroidism ([facility]) 10/02/2020 Last Assessment & Plan: Encouraged to increase hydration 5-6 bottles water/day, this can include tea/crystal light. Will check calcium levels yearly, more often with change in kidney function. Stage 3b chronic kidney disease ([facility]) 2020 Last Assessment & Plan: Stable. Dilated cardiomyopathy ([facility]) 02/23/2020 Last Assessment & Plan: Improved EF on echo 11/2020 (55%) Ventricular tachycardia ([facility]) 11/23/2019 Last Assessment & Plan: No further episodes noted on program evaluation today. Normal MPI. However, I noted that her EF was moderately reduced at 45%. I am going to order an echo for re--evaluation of her LVEF. Hypomagnesemia 06/05/2019 Last Assessment & Plan: We will go ahead and check magnesium level today as she is taking an oral supplement. Mixed hyperlipidemia 06/05/2019 Last Assessment & Plan: LDL treated to target. Continue current dose of Repatha Cerebrovascular accident (CVA) ([facility]) Current use of usp 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 Last Assessment & Plan: Patient is taking and tolerating apixaban without overt signs of bleeding. Will check labs including renal function today. care home current use of insulin ([facility]) 06/01 Last Assessment & Plan: Pt. is taking and tolerating Eliquis without overt signs of bleeding Essential hypertension 06/01/2019 Last Assessment & Plan: Relatively well controlled Paroxysmal atrial fibrillation ([facility]) 019 Last Assessment & Plan: She is appropriately anticoagulated for stroke risk reduction. Diabetes mellitus, type 2 ([facility]) 01/26/2011 Overview: On metformin On metformin Last Assessment & Plan: Controlled A1C 6.3 Congratulated on changes!! If able, start jardiance 10 mg daily. With this will lower lantus 25 units daily. Discussed staying hydrated and good bathroom hygiene with this. If not starting jardiance, Increase lantus 31 units daily. Continue ozempic 1 mg weekly, metformin XR 750 mg twice daily and humalog SS as above. Continue with vicky CGM, swiping 4-5X/day. Encouraged continuing to stay hydrated daily, balanced meals and activity as able. Follow-up in 2-3 months pending. Call with lows <70 persistently or elevations >200. MALB today. Given [facility] HAP program info to see if qualifies. Rosacea 01/26/2011 Overview: previously on Elidel previously on Elidel Duodenal erosion Esophagitis Blood loss anemia Hypertrophic cardiomyopathy ([facility]) Edema of right lower extremity Resolved Problems Problem Noted Date Diagnosed Date Resolved Date NSTEMI (non-ST elevated myoc ardial infarction) ([facility]) 12/02/2022 01/05/2023 Elevated troponin 11/24/2022 01/05/2023 Dyslipidemia 06/01/2019 02/23/2020 Nonrheumatic aortic valve stenosis 06/01/2019 03/14/2021 Last Assessment & Plan: Echo pending Status post placement of imp lantable loop recorder 06/01/2019 01/05/2023 Last Assessment & Plan: There is adequate battery longevity. The leads are functioning normally. She did have 1 vasovagal foot episode lasting for seconds while she was sleeping. We did discuss sleep at apnea but she declined referral for sleep study. Dyspnea 12/24/2018 02/23/2020 Syncope 11/14/2022 NSTEMI (non-ST elevated myoc ardial infarction) ([facility]) 12/07/2022 Chest pain 01/05/2023 Encounters Date Type Department Care Team Description 12/13/2023 Lab Requisition [facility] Pathology & Laboratory Medicine - [address] [address] Outr Resulting Lab, Provider from Last 3 Months Medical History Medical History Date Comments Nonrheumatic aortic valve stenosis 06/01/2019 Mixed hyperlipidemia 06/05/2019 Essential hypertension 06/01/2019 Paroxysmal atrial fibrillation ([facility]) 019 Cerebrovascular accident (CVA) ([facility]) 019 Diabetes mellitus, type 2 ([facility]) 01/26/2011 On metformin On metformin Social History Tobacco Use Types Packs/Day Years Used Date Smoking Tobacco: Never Smokeless Tobacco: Never Tobacco Cessation:Counseling Given: Not Answered Alcohol Use Standard Drinks/Week Comments Never 0 (1 standard drink = 0.6 oz pur e alcohol) Interpersonal Safety Answer Date Record ed Physically Hurt Never 01/21/2020 Verbally Threaten Not on file 01/21/2020 Sex and Gender Information Value Date Recorded Sex Assigned at Not on file Gender Identity Female 06/01/2019 10:00 EST Sexual Orientation Not on file Obstetrics History Last Filed Vital Signs Vital Sign Reading Time Taken Comments Blood Pressure 122/80 10/05/2023 1505 EDT Pulse 78 10/05/2023 1505 EDT Temperature 36.6 ??C (97.9 ??F) 03/16/2023 0844 EDT Respiratory Rate 16 03/16/2023 0844 EDT Oxygen Saturation 96% 10/05/2023 1505 EDT Inhaled Oxygen Concentration - - Weight 71.7 kg (158 lb) 10/05/2023 1505 EDT Height 162.6 cm (5' 4) 10/05/2023 1505 EDT Body Mass Index 27.12 10/05/2023 1505 EDT Plan of Treatment Upcoming Encounters Date Type Department Care Team (Late st Contact Info) Description 03/08/2024 9:30 EDT Ancillary Procedure [facility] [place] [address] 03/08/2024 10:15 EDT Ancillary Procedure [facility] [place] [address] 04/05/2024 10:00 EDT Ancillary Procedure [facility] [address] [place] [phone] 04/05/2024 10:00 EDT Office Visit [facility] [address] [place] [address] [id number] Carlos Ha NP [address] [facility] [address] [place] [phone] Health Maintenance Due Date Last Done Comments Hepatitis C Screen 1950 RSV Immunization ( o r 60+ Years) (1 - 1-dose 60+ series) 2012 Foot Exam 08/07/2021 08/07/2020, 07/10/2020 Eye Exam 10/21/2021 10/21/2020 Microalbumin/Creatinine Ratio 08/05/2022, 07/10/2020, 10/18/2017, Additional history exists Hemoglobin A1C (Ha1C) 05/14/2023 11/11/2022 , 08/05/2021, 03/06/2021, Additional history exists COVID-19 Vaccine (2022- 4 season) 2023 03/25/2023, 05/07/2022, 11/03/2021, Additional history exists Fall Risk Screening 11/21/2023 11/20/2022, 12/04/2020, 11/23/2019 Lipid Profile Screening (Cholesterol) 12/04/2023 12/03/2022, 08/01/2021, 06/05/2019 Medical Devices Implanted Type Area Flume Worker Device Identifier Shelf Expiration Date Model / Serial / Lot Defibrillator Multi Chamber Fruit Thinner D Mri Comp [id number] Amplia [id number] - [id number] Implanted:Qty: 1 on 03/15/2023 by Lefty Moss MD at [facility] ICD Left: Chest [employer] [id number] 05/04/2024 [id number] / [id number] / Cardiac Lead Icd Tripolar Endocardium [id number] Sprint Quattro [id number] - [id number] Implanted:Qty: 1 on 03/15/2023 by Lefty Moss MD at [facility] Lead Left: Heart [employer] [id number] 10/28/2024 [id number] 5 / [id number] 7V / Lead Pacemaker Endocardial Biplr Act Fixtn [id number] Selectsecure [id number] - [id number] Implanted:Qty: 1 on 03/15/2023 by Lefty Moss MD at [facility] Lead Left: Heart [employer] [id number] 01/19/2025 3830-6 9C M / [id number] 3V / Lead Pacemaker Endocardial Biplr Act Fixtn [id number] Capsurefix Novus [id number] - [id number] Implanted:Qty: 1 on 03/15/2023 by Lefty Moss MD at [facility] Lead Left: Heart [employer] [id number] 07/09/2024 5076-4 5 / [id number] 2V / Stent System 3.50mm X 33mm Rapid Exchange Xience Skypoint Everolimus Eluting Coronary - [id number] Implanted:Qty: 1 on 12/08/2022 by Edgardo Ha MD at [facility] Stent Right: Coronary [employer] [id number] / / Description:Mid RCA Procedures Procedure Name Priority Date/Time Associated Diagnosis Comments SPEP, INCLUDES QUANTITATION OF MONOCLONAL SPIKE PERFORMABLE Today 12/13/2023 9:14 EDT PROTEIN, TOTAL Today 12/13/2023 9:14 EDT SPEP, INCLUDES QUANTITATION OF MONOCLONAL SPIKE Routine 12/13/2023 9:14 EDT LYME AB Routine 12/13/2023 9:14 EDT LIPID PROFILE (INCLUDES CHOLESTEROL, TRIGLYCERIDES, HDL, LDL) Routine 12/03/2022 23:53 EDT HEMOGLOBIN A1C Routine 11/11/2022 13:24 EDT URINE [id number] RATIO (ACR) Routine 08/05/2021 15:07 EST Type 2 diabetes mellitus with hyperglycemia, with long-term current use of insulin ([facility]) (HCC) from Last 3 Months or Most Recently Relevant to Health Maintenance Results * (ABNORMAL) SPEP, INCLUDES QUANTITATION OF MONOCLONAL SPIKE PERFORMABLE (12/13/2023 9:14 EDT) Albumin % 60.0 55.8 - 66.1 % 12/14/2023 12:34 [facility] Albumin g/dL 3.8 3.6 - 5.2 g/dL 12/14/2023 12:34 [facility] Alpha-1 % 4.9 2.9 - 4.9 % 12/14/2023 12:34 [facility] Alpha-1 g/dL 0.30 0.15 - 0.40 g/dL 12/14/2023 12:34 [facility] Alpha-2 % 11.4 7.1 - 11.8 % 12/14/2023 12:34 [facility] Alpha-2 g/dL 0.70 0.50 - 1.00 g/dL 12/14/2023 12:34 [facility] Beta % 13.4(H) 8.4 - 13.1 % 12/14/2023 12:34 [facility] Beta g/dL 0.80 0.60 - 1.20 g/dL 12/14/2023 12:34 [facility] Gamma % 10.3(L) 11.1 - 18.8 % 12/14/2023 12:34 EDT [facility] Gamma g/dL 0.60 0.60 - 1.60 g/dL 12/14/2023 12:34 EDT [facility] SPEP Comment No apparent monoclonal protein seen on serum electrophoresis 12/14/2023 12:34 EDT [facility] Comment:See scanned/suppleme ntary report. Total Protein 6.3 6.3 - 8.2 g/dL 12/14/2023 12:34 EDT [facility] Blood VENOUS BLOOD / Unknown 12/13/2023 9:14 EDT 12/13/2023 17:12 EDT Provider Outr Resulting Lab CHEMISTRY & BLOOD GAS ORDERABLES Performing Organization Address City/[facility]/ZIP Co de Phone Number [facility] [address] [place] [address] * LYME AB (12/13/2023 9:14 EDT) Lyme Ab Negative Negative 12/14/2023 13:36 EDT [facility] Blood VENOUS BLOOD / Unknown 12/13/2023 9:14 EDT 12/13/2023 17:12 EDT Provider Outr Resulting Lab IMMUNOLOGY A ND SEROLOGY ORDERABLES Performing Organization Address City/[facility]/ZIP Co de Phone Number [facility] [address] [place] [address] * PROTEIN, TOTAL (12/13/2023 9:14 EDT) Blood VENOUS BLOOD / Unknown 12/13/2023 9:14 EDT 12/13/2023 17:12 EDT Provider Outr Resulting Lab CHEMISTRY & BLOOD GAS ORDERABLES Performing Organization Address City/[facility]/ZIP Co de Phone Number [facility] [address] [place] [address] * (ABNORMAL) LIPID PROFILE (INCLUDES CHOLESTEROL, TRIGLYCERIDES, HDL, LDL) (12/03/2022 23:53 EDT) Cholesterol 107 <200 mg/dL 12/04/2022 0:16 EDT [facility] Comment:Note that therapeuti c goals will differ between patients based on cardiac risk factors and current medical therapy. HDL 40(L) >=50 mg/dL 12/04/2022 0:16 T [facility] Comment:Note that therapeuti c goals will differ between patients based on cardiac risk factors and current medical therapy. LDL, Calculated 29 <160 mg/dL 0:16 EDT [facility] Comment:Note that therapeuti c goals will differ between patients based on cardiac risk factors and current medical therapy. Triglyceride 188(H) <=150 mg/dL 12/04/2022 0:16 T [facility] Comment:Note that therapeuti c goals will differ between patients based on cardiac risk factors and current medical therapy. Chol/HDL Ratio 2.7 See Note 12/04/2022 0:16 T [facility] Comment:No reference range h as been established for CHOL/HDL ratio. Non HDL Cholesterol 67 <160 mg/dL 12/04/2022 0:16 [facility] Comment:Note that therapeuti c goals will differ between patients based on cardiac risk factors and current medical therapy. Blood VENOUS BLOOD / Unknown Venipuncture / Unknown 12/03/2022 23:53 EDT 12/04/2022 0:00 EDT Darion Tinajero MD CHEMISTRY & BLOOD GA S ORDERABLES [facility] [address] [place] [address] * (ABNORMAL) HEMOGLOBIN A1C (11/11/2022 13:24 EDT) Hemoglobin A1c 7.1(H) <5.7 % 11/11/2022 16:36 EDT [facility] Comment: Glycemic Status References: Normal: ??<5.7% Pre-Diabetes: ??5.7% - 6.4% Diagnostic of Diabetes: ??> or = 6.5% (if confirmed) Est Avg Glucose 157 mg/dL 16:36 EDT [facility] Comment:The eAG represents t he A1c result expressed as average glucose in mg/dL. Blood VENOUS BLOOD / Unknown IV Draw / Unknown 11/11/2022 13:24 EDT 11/11/2022 13:35 EDT Stephon Sosa CHEMISTRY & BLOOD GA S ORDERABLES [facility] [address] [place] [address] * (ABNORMAL) URINE [id number] RATIO (ACR) (08/05/2021 15:07 EST) Albumin, Urine 47.2 See Note mg/dL 2021 18:46 [facility] Comment: NOTE: Reference range not established Creatinine, Urine 102.8 See Note mg/dL 08/05/2021 18:46 [facility] Comment: NOTE: Reference range not established Lab Urine Albumin to Creatinine Ratio 459(H) <30 ??g/mg Creatinine 08/05/2021 18:46 [facility] Comment: Urine Albumin/Creatinine Ratio: Normal: <30 ug/mg Creatinine Moderately increased albuminuria: 30-300 ug/mg Creatinine Meggan increased albuminuria: >300 ug/mg Creatinine Urine URINE SPECIMEN COLLECTION, CLEAN CATCH / Unknown Urine Collect / Unknown 08/05/2021 15:07 EST 08/05/2021 15:07 EST Sarika Zamudio NP CHEMISTRY & BLOOD GAS ORDERABLES [facility] [address] [place] [address] from Last 3 Months or Most Recently Relevant to Health Maintenance Advance Directives For more information, please contact: [phone] Documents on File Type Date Recorded Patient Channel Rougher Expl anation Advance Directive 11/19/2022 11:05 [place] Felice ce Directive for Health Care-Signed * Full Code (Latest Code Status on File) Date Activated Date Inactivated Comments 03/15/2023 8:17 03/16/2023 14:42 Question Answer Comments When the patient has NO PULSE: Full Code / CPR Who Made the Decision? Default/Not Discussed * Full Code Date Activated Date Inactivated Comments 12/03/2022 22:21 12/09/2022 16:38 Question Answer Comments When the patient has NO PULSE: Full Code / CPR Who Made the Decision? Default/Not Discussed * Full Code Date Activated Date Inactivated Comments 12/02/2022 1:19 12/03/2022 22:09 Advanced directi ve Question Answer Comments When the patient has NO PULSE: Full Code / CPR Who Made the Decision? Patient * Full Code Date Activated Date Inactivated Comments 12/01/2022 17:26 12/02/2022 1:19 Question Answer Comments When the patient has NO PULSE: Full Code / CPR Who Made the Decision? Patient * Full Code Date Activated Date Inactivated Comments 11/11/2022 13:11 11/14/2022 19:53 Question Answer Comments When the patient has NO PULSE: Full Code / CPR Who Made the Decision? Default/Not Discussed Care Teams Machine Shop Helper Relationship Specialty Start Date End Date Elba Jett MD [address] [place] [phone] PCP - General Family Medicine - Primary Care 05/18/23 Carlos Ha NP [address] [place] [address] [address] [place] [phone] Consulting Clinician Cardiovascular Disease 09/14/21
--- OUTSIDE RECORDS SUMMARY | 2024-01-07 11:10 | XMS_ITS | Referral Summary ---
Author Organization [facility] Address [address] [place] [address] Care Team Providers Care Catalogue Clerk Name Role Phone Carlos Ha SUPERVISOR RIDE ASSEMBLY Unavailable [phone] Elba Jett MD Primary Care Provider [phone] Encounters Date Type Department Care Team Description 12/13/2023 Lab Requisition [facility] Pathology & Laboratory Medicine - [facility] [address], [place] [id number] 40 Outr Resulting Lab, Provider from Last 3 Months Allergies Active Allergy Reactions Criticality Noted Date [...] 05/18/2023 Propoxyphene N-Acetaminophen 01/27/2011 Other reaction(s): Hallucinations Gsgktmu-Rim-Zlp Reductase Inhibitors 01/18/2020 Dulaglutide 07/10/2020 Gi Side effect Medications Medication Sig Dispensed Refills Start Date End Date Status lancets/blood glucose strips (ONE TOUCH COMBO [facility]) -to test blood sugar - twice daily [...] hyperglycemia, with long-term current use of insulin ([facility]) by [facility] [place] (non-drug; combo route) route daily. One touch verio meter or best covered by insurance. 1 Each 10/02/2020 Active flash glucose scanning reader (FREESTYLE VICKY 2 READER) [facility] [place] 1 Device by [facility] [place] (non-drug; combo route) route [...] be different from the original. 2021-09-16 [facility] MGP Verbal BRUNA: permission to speak with Lefty Gomez Tanner (.) Patient has given permission for [facility] to verbally discuss the following information [...] if rash returns. PAF (paroxysmal atrial fibrillation) ([facility]) 0 02/16/2023 ASCVD (arteriosclerotic cardiovascular disease) 12/08/2022 Chronic heart failure with p reserved ejection fraction ([facility]) 12/01/2022 AVB (atrioventricular block) 11/24/2022 Gastrointestinal hemorrhage 11/11/2022 Fatigue 12/04/2020 Last Assessment & Plan: ?cardiac vs orthostatic hypotension vs glucose regulation. Has upcoming ECHO scheduled. Discussed checking BP at home with lightheadedness. Has upcoming visit with PCP for further w/up. Will reach out to design cell engineer as well. We did discuss giving her body time to adjust to BG's normalizing, did lower lantus and humalog today. Osteopenia after menopause 10/02/2020 Last Assessment & Plan: Get updated DEXA scan at same clinic [facility]. Ordered faxed. Request disk of images to bring to next visit. Continue with DEXA every 2 years. Hypercalcemia 10/02/2020 Last Assessment & Plan: Stable. Primary hyperparathyroidism ([facility]) 10/02/2020 Last Assessment & Plan: Encouraged to increase hydration 5-6 bottles water/day, this can include tea/crystal light. Will check calcium levels yearly, more often with change in kidney function. Stage 3b chronic kidney disease ([facility]) 2020 Last Assessment & Plan: Stable. Dilated cardiomyopathy ([facility]) 02/23/2020 Last Assessment & Plan: Improved EF on echo 11/2020 (55%) Ventricular tachycardia ([facility]) 11/23/2019 Last Assessment & Plan: No [...] current dose of Repatha Cerebrovascular accident (CVA) ([facility]) Current use of half-way 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 Last Assessment & Plan: Patient is taking and tolerating apixaban without overt signs of bleeding. Will check labs including renal function today. 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 is taking and tolerating Eliquis without overt signs of bleeding Essential hypertension 06/01/2019 Last Assessment & Plan: Relatively well controlled Paroxysmal atrial fibrillation ([facility]) Last Assessment & Plan: She is appropriately anticoagulated for stroke risk reduction. Diabetes mellitus, type 2 ([facility]) 01/26/2011 Overview: On metformin On metformin [...] persistently or elevations >200. MALB today. Given [facility] HAP program info to see if qualifies. Rosacea 01/26/2011 Overview: previously on Elidel previously on Elidel Duodenal erosion Esophagitis Blood loss anemia Hypertrophic cardiomyopathy ([facility]) Edema of right lower extremity Resolved Problems Problem Noted Date Diagnosed Date Resolved Date NSTEMI (non-ST elevated myoc ardial infarction) ([facility]) 12/02/2022 01/05/2023 Elevated troponin 11/24/2022 01/05/2023 [...] 11/14/2022 NSTEMI (non-ST elevated myoc ardial infarction) ([facility]) 12/07/2022 Chest pain 01/05/2023 Social History Tobacco Use Types Packs/Day Years [...] 10:00 EST Sexual Orientation Not on file Last Filed Vital Signs Vital Sign Reading [...] Body Mass Index 27.12 10/05/2023 1505 EDT Functional Status Functional Status Response Date of [...] (5 years old or older) No 03/15/2023 Plan of Treatment Upcoming Encounters Date Type Department Care Team (Late st Contact Info) Description 03/08/2024 9:30 EDT Ancillary Procedure [facility] Cardiology - [facility] [address] [place] [address] 03/08/2024 10:15 EDT Ancillary Procedure [facility] Cardiology - [facility] [address] [place] [address] 04/05/2024 10:00 EDT Ancillary Procedure [facility] Cardiology Clinic [address] [place] [phone] 04/05/2024 10:00 EDT Office Visit [facility] Cardiology Clinic [address] [place] [phone] Carlos Ha NP [address] [place] [address]- [address] [place] [phone] Medical Devices Implanted Type Area Bonsai Tender Device Identifier Shelf Expiration Date Model / Serial / Lot Defibrillator Multi Chamber Assessment Clinician D Mri Comp [id number] Amplia [id number] - [id number] Implanted:Qty: 1 on 03/15/2023 by Lefty Moss MD at [facility] ICD Left: Chest [employer] [id number] 05/04/2024 [id number] / [id number] 3S / Cardiac Lead Icd Tripolar Endocardium [id number] Sprint Quattro [id number] - [id number] Implanted:Qty: 1 on 03/15/2023 by Lefty Moss MD at [facility] Lead Left: Heart [employer] [id number] 10/28/2024 [id number] 5 / [id number] 7V / Lead Pacemaker Endocardial Biplr Act Fixtn [id number] Selectsecure [id number] - [id number] Implanted:Qty: 1 on 03/15/2023 by Lefty Moss MD at [facility] Lead Left: Heart [employer] [id number] 01/19/2025 3830-6 9C M / [id number] 3V / Lead Pacemaker Endocardial Biplr Act Fixtn [id number] Capsurefix Novus [id number] - [id number] Implanted:Qty: 1 on 03/15/2023 by Lefty Moss MD at [facility] Lead Left: Heart [employer] [id number] 07/09/2024 5076-4 5 / [id number] 2V / Stent System 3.50mm X 33mm Rapid Exchange Xience Skypoint Everolimus Eluting Coronary - [id number] Implanted:Qty: 1 on 12/08/2022 by Edgardo Ha MD at [facility] Stent Right: Coronary [employer] [id number] / / Description:Mid RCA Procedures Procedure [...] HEMOGLOBIN A1C Routine 11/11/2022 13:24 EDT URINE [id number] RATIO (ACR) Routine 08/05/2021 15:07 EST Type 2 diabetes mellitus with hyperglycemia, with long-term current use of insulin ([facility]) ([facility]) from Last 3 Months or Most Recently Relevant to Health Maintenance Results * (ABNORMAL) SPEP, INCLUDES QUANTITATION OF MONOCLONAL SPIKE PERFORMABLE (12/13/2023 9:14 EDT) Albumin % 60.0 55.8 - 66.1 % 12/14/2023 12:34 [facility] Albumin g/dL 3.8 3.6 - 5.2 g/dL 12/14/2023 12:34 [facility] Alpha-1 % 4.9 2.9 - 4.9 % 12/14/2023 12:34 [facility] Alpha-1 g/dL 0.30 0.15 - 0.40 g/dL 12/14/2023 12:34 [facility] Alpha-2 % 11.4 7.1 - 11.8 % 12/14/2023 12:34 [facility] Alpha-2 g/dL 0.70 0.50 - 1.00 g/dL 12/14/2023 12:34 [facility] Beta % 13.4(H) 8.4 - 13.1 % 12/14/2023 12:34 [facility] Beta g/dL 0.80 0.60 - 1.20 g/dL 12/14/2023 12:34 [facility] Gamma % 10.3(L) 11.1 - 18.8 % 12/14/2023 12:34 [facility] Gamma g/dL 0.60 0.60 - 1.60 g/dL 12/14/2023 12:34 [facility] SPEP Comment No apparent monoclonal protein seen on serum electrophoresis 12/14/2023 12:34 [facility] Comment:See scanned/suppleme ntary report. Total Protein 6.3 6.3 - 8.2 g/dL 12/14/2023 12:34 [facility] Blood VENOUS BLOOD / Unknown 12/13/2023 9:14 EDT 12/13/2023 17:12 EDT Provider Outr Resulting Lab CHEMISTRY & BLOOD GAS ORDERABLES Performing Organization Address [facility] Co de Phone Number [facility] [address] [place] [address] * LYME AB (12/13/2023 9:14 EDT) Pathologist [facility] Lyme Ab Negative Negative 12/14/2023 13:36 EDT [facility] Blood VENOUS BLOOD / Unknown 12/13/2023 9:14 EDT 12/13/2023 17:12 EDT Provider Outr Resulting Lab IMMUNOLOGY A ND SEROLOGY ORDERABLES Performing Organization Address [facility] de Phone Number [facility] [address] [place] [phone] * PROTEIN, TOTAL (12/13/2023 9:14 EDT) Blood VENOUS BLOOD / Unknown 12/13/2023 9:14 EDT 12/13/2023 17:12 EDT Provider Outr Resulting Lab CHEMISTRY & BLOOD GAS ORDERABLES Performing Organization Address [facility] de Phone Number [facility] [address] [place] [phone] * (ABNORMAL) LIPID PROFILE (INCLUDES CHOLESTEROL, TRIGLYCERIDES, HDL, LDL) (12/03/2022 23:53 EDT) [facility] Cholesterol 107 <200 mg/dL 12/04/2022 0:16 EDT [facility] Comment:Note that therapeuti c goals will differ between patients based on cardiac risk factors and current medical therapy. HDL 40(L) >=50 mg/dL 12/04/2022 0:16 T [facility] Comment:Note that therapeuti c goals will differ between patients based on cardiac risk factors and current medical therapy. LDL, Calculated 29 <160 mg/dL 0:16 EDT [facility] Comment:Note that therapeuti c goals will differ between patients based on cardiac risk factors and current medical therapy. Triglyceride 188(H) <=150 mg/dL 12/04/2022 0:16 EDT [facility] Comment:Note that therapeuti c goals will differ between patients based on cardiac risk factors and current medical therapy. Chol/HDL Ratio 2.7 See Note 12/04/2022 0:16 EDT [facility] Comment:No reference range h as been established for CHOL/HDL ratio. Non HDL Cholesterol 67 <160 mg/dL 12/04/2022 0:16 EDT [facility] Comment:Note that therapeuti c goals will differ between patients based on cardiac risk factors and current medical therapy. Blood VENOUS BLOOD / Unknown Venipuncture / Unknown 12/03/2022 23:53 EDT 12/04/2022 0:00 EDT Darion Tinajero MD CHEMISTRY & BLOOD GA S ORDERABLES Performing Organization Address [facility] de Phone Number [facility] [address] [place] [phone] * (ABNORMAL) HEMOGLOBIN A1C (11/11/2022 13:24 EDT) Hemoglobin A1c 7.1(H) <5.7 % 11/11/2022 16:36 EDT [facility] Comment: Glycemic Status References: Normal: ??<5.7% Pre-Diabetes: ??5.7% - 6.4% Diagnostic of Diabetes: ??> or = 6.5% (if confirmed) Est Avg Glucose 157 mg/dL 16:36 EDT [facility] Comment:The eAG represents t he A1c result expressed as average glucose in mg/dL. Blood VENOUS BLOOD / Unknown IV Draw / Unknown 11/11/2022 13:24 EDT 11/11/2022 13:35 EDT Stephon Sosa CHEMISTRY & BLOOD GA S ORDERABLES Performing Organization Address [facility] Co de Phone Number [facility] [address] [place] [address] * (ABNORMAL) URINE [id number] RATIO (ACR) (08/05/2021 15:07 EST) Albumin, Urine 47.2 See Note mg/dL 2021 18:46 EST [facility] Comment: NOTE: Reference range not established Creatinine, Urine 102.8 See Note mg/dL 08/05/2021 18:46 EST [facility] Comment: NOTE: Reference range not established Lab Urine Albumin to Creatinine Ratio 459(H) <30 ??g/mg Creatinine 08/05/2021 18:46 [facility] Comment: Urine Albumin/Creatinine Ratio: Normal: <30 ug/mg Creatinine Moderately increased albuminuria: 30-300 ug/mg Creatinine Meggan increased albuminuria: >300 ug/mg Creatinine Urine URINE SPECIMEN COLLECTION, CLEAN CATCH / Unknown Urine Collect / Unknown 08/05/2021 15:07 EST 08/05/2021 15:07 EST Sarika Zamudio NP CHEMISTRY & BLOOD GAS ORDERABLES Performing Organization Address City/State/[facility] Co de Phone Number [facility] [address] [place] [address] from Last 3 Months or Most Recently Relevant to Health Maintenance Advance Directives For more information, please contact: [phone] Documents on File Type Date Recorded Patient Checkering Machine Adjuster Expl anation Advance Directive 11/19/2022 11:05 [place] Advan ce Directive for Health Care-Signed * Full [...] Made the Decision? Default/Not Discussed Care Teams Catalogue Clerk Relationship Specialty Start Date End Date Elba Jett MD [address] [place] [phone] PCP - General Family Medicine - Primary Care 05/18/23 Carlos Ha NP [address] [place] [address] [address] [place] [phone] Consulting Clinician Cardiovascular Disease 09/14/21
--- OUTSIDE RECORDS SUMMARY | 2024-01-07 11:10 | XMS_ITS | Encounter Summary ---
Author Organization [facility] Address [address] [place] [address] Care Team Providers Care Waste Water Worker Name Role Phone Carlos Ha LAWN MAINTENANCE WORKER Unavailable [phone] Elba Jett MD Primary Care Provider [phone] Reason for Visit * Reason Onset Date Comments Appointment Related 06/17/2023 Encounter Details Date Type Department Care Team (Late st Contact Info) Description 06/17/2023 Telephone [facility] Cardiology Clinic [address] [place] [address] Carlos Ha, LAWN MAINTENANCE WORKER [address] [facility] [address] [place] [phone] Appointment Related Social History Tobacco Use Types [...] encounter Miscellaneous Notes * Telephone Encounter - Fan Schaefer RN - 06/17/2023 1018 EST Reviewed recent OV notes and unable to find any mention of appts other than the [facility] that was already rescheduled. No imaging or lab orders without results. * Telephone Encounter - Eli Humphreys - 06/17/2023 1004 EST calling in to check on an appt he thought he cancelled and did not R/S. I only saw the [facility] [email or web address] appt in there. Patient states that already had that done with us. Can we help him figure out who he needs to be speaking with. Thanks documented in this encounter Plan of Treatment Upcoming Encounters Date Type Department Care Team (Late st Contact Info) Description 03/08/2024 9:30 EDT Ancillary Procedure [facility] Cardiology [facility] [place] [address] 03/08/2024 10:15 EDT Ancillary Procedure [facility] Cardiology - [place] [address] 04/05/2024 10:00 EDT Ancillary Procedure [facility] Cardiology Clinic [address] [place] [phone] 04/05/2024 10:00 EDT Office Visit [facility] Cardiology Clinic [address] [place] [address] Carlos Ha NP [address] [place] [phone] documented as of this encounter Visit Diagnoses Not on filedocumented in this encounter Care Teams Waste Water Worker Relationship Specialty Start Date End Date Elba Jett MD [address] [place] [phone] PCP - General Family Medicine - Primary Care 05/18/23 Carlos Ha NP [address] [place] [phone] Consulting Clinician Cardiovascular Disease 09/14/21 documented as of this encounter
--- OUTSIDE RECORDS SUMMARY | 2024-01-07 11:10 | XMS_ITS | Continuity of Care Document ---
Author Organization [facility] Address [address] [place] [address] Care Team Providers Care Intellectual Property Counsel Name Role Phone [facility] OTHER ELBA JETT Primary Care Provider [phone] LEISA SEGOVIA OTHER Assessment No assessment recorded. Plan of Treatment Reminders Order Date Submit Date Provider Last Modified By Organization Details Last Modified Time Details Appointments Medical Nutritio n Therapy 90 2023 11:00A M Isatu Yo Not available Not available Not available Annual Chronic Care (65+) 40 2023 02:40P M Elba Jett Not available Not available Not available Lab BMP, serum or plasma 2023 024 [facility] ([facility]), [address] [place] [address] [place], [address], 12/15/2023 13:55:51 protein electrop horesis panel, serum or plasma 2023 024 [facility] ([facility]), [address] [place] [address] [place], [address], 12/14/2023 14:48:56 TSH, serum, reflex free T4 2023 024 [facility] ([facility]), [address] [place] [address] [place], [address], 12/15/2023 13:56:06 lyme disease igg+igm, serum, reflex western blot 2023 024 [facility] ([facility]), [address] [place] [address] [place], [address], 12/15/2023 13:56:24 vitamin B6 (pyridox ine), plasma 2023 024 [email or web address] [facility] ([facility]), [address] [place] [address] [place], [address], 12/20/2023 10:16:41 Referral None recorded . Procedures None recorded . Surgeries None recorded . Imaging None recorded . Medication Orders None recorded . Patient TargetsNo targets recorded. Patient InstructionsNo instructions recorded. 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 Referral for Typ e II diabetes mellitus uncontrolled once visit is complete please send us the visit notes Referring Physician: Elba Jett [facility], Encounter Date: 11/03/2023 Results Created Date Observation Date Name Description Value Unit Range Abnormal Flag LastModifiedBy Organization Detail LastModifiedTime 11/28/19 24 11/28/2023 zach daniel Name: Cristino Hart Unit #: [id number] Loc: ER Orderi ng Provid er: Accoun t #: [id number] Status : REG ER Primar y Care Provid er: Elba Jett Date of Exam: Sex: F : 1949 Age: 73 Exam(s ) PROCED URE INFORM ATION: Exam: CTA Head With Contra st, Arteri ograph y Exam date and time: 11/28/19 6:49 PM Age: 73 years old Clinic al indica tion: Stroke -like sympto ms; Right lower extrem ity and left lower extrem ity numbne ss/par esthes ia TECHNI QUE: Imagin g protoc ol: Comput ed tomogr aphic angiog courtney of the head with contra st. Exam focuse d on the arteri es. 3D render ing (Not superv ised by radiol ogist) : MIP and/or 3D recons tructe d images were create d by the techno logist . Contra st materi al: 350; Contra st volume : 85 ml; Contra st route: INTRAV ENOUS (IV); COMPAR JD: CT BRAIN NECK CTA 2022 2:11 PM FINDIN GS: ANTERI OR CIRCUL ATION: Right sports management internship al caroti d artery : Intrac ranial segmen t is patent with no signif icant stenos is. No aneury sm. Right middle cerebr al artery : No occlus ion or signif icant stenos is. No aneury sm. Right anteri or cerebr al artery : No occlus ion or signif icant stenos is. No aneury sm. Left sports management internship al caroti d artery : Intrac ranial segmen t is patent with no signif icant stenos is. No aneury sm. Left middle cerebr al artery : No occlus ion or signif icant stenos is. No aneury sm. Left anteri or cerebr al artery : No occlus ion or signif icant stenos is. No aneury sm. SENIOR CAPITAL MARKETS SPECIALIST IOR CIRCUL ATION: Right verteb ral artery : No occlus ion or signif icant stenos is. No aneury sm. Left verteb ral artery : No occlus ion or signif icant stenos is. No aneury sm. Basila r artery : No occlus ion or signif icant stenos is. No aneury sm. Right director of safety and security ior cerebr al artery : No occlus ion or signif icant stenos is. No aneury sm. Left director of safety and security ior cerebr al artery : No occlus ion or signif icant stenos is. No aneury sm. Brain: Cerebr al atroph y and probab le underl jagdeep microv ascula r ischem ic change s are again eviden t with no intrac ranial mass, acute transc ortica l infarc tion or recent intrac ranial hemorr janusz detect ed. Cerebr al ventri cles: Stable in config uratio n with no midlin e shift or hydroc ephalu s. Mastoi d air cells: Grossl y clear bilate rally. Parana irene sinuse s: Grossl y clear throug hout. Bones/ joints : No acute fractu re. Soft tissue s: Unrema rkable . IMPRES JOSEFA: 1. No large vessel stenos is or occlus ion detect ed involv ing the major branch es of the anteri or or director of safety and security ior intrac ranial circul ation. 2. No eviden ce of acute transc ortica l infarc tion, recent intrac ranial hemorr janusz or hydroc ephalu s with underl jagdeep atroph y and chroni c microv ascula r ischem ic change s noted as above. ====== ====== ====== ====== = PROCED URE INFORM ATION: Exam: CTA Neck With Contra st Exam date and time: 11/28/19 6:49 PM Age: 73 years old Clinic al indica tion: Stroke -like sympto ms; Right lower extrem ity and left lower extrem ity numbne ss/par esthes ia TECHNI QUE: Imagin g protoc ol: Comput ed tomogr aphic angiog courtney of the neck with contra st. Exam focuse d on the cervic al segmen ts of the vascul ature. 3D render ing (Not superv ised by radiol ogist) : MIP and/or 3D recons tructe d images were create d by the techno logist . Contra st materi al: 350; Contra st volume : 85 ml; Contra st route: INTRAV ENOUS (IV); COMPAR JD: CT BRAIN NECK CTA 2022 2:11 PM FINDIN GS: Right common caroti d artery : No stenos is. No dissec tion or occlus ion. Right sports management internship al caroti d artery : No stenos is of the extrac ranial segmen t. No dissec tion or occlus ion. Right automobile tester al caroti d artery : No occlus ion or stenos is of the origin . Left common caroti d artery : No stenos is. No dissec tion or occlus ion. Left sports management internship al caroti d artery : No stenos is of the extrac ranial segmen t. No dissec tion or occlus ion. Left automobile tester al caroti d artery : No occlus ion or stenos is of the origin . Right verteb ral artery : No stenos is. No dissec tion or occlus ion. Left verteb ral artery : No stenos is. No dissec tion or occlus ion. Soft tissue s: Normal . No signif icant soft tissue swelli ng. Bones/ joints : No acute fractu re. IMPRES JOSEFA: No eviden ce of 50% or greate r stenos is involv ing the cervic al segmen ts of the right or left sports management internship al caroti d arteri es by NASCET criter ia. REFERE NCES: NASCET CRITER IA. The degree of stenos is in the cervic al segmen t of the sports management internship al caroti d artery is based on NASCET criter ia. Normal is no stenos is. Mild is less than 50% stenos is. Modera te is 50-69% stenos is. Severe is 70% to 99% stenos is. Total occlus ion is no detect able patent lumen. Dictat ed and Ben chaudhari d by: Yohan Jennings MD. Orderi ng:Katherine miller MD Access ion#=[id number] Ordere d By: CC: ------ ------ ------ ------ ------ ------ ------ ------ ------ ------ ------ ------ ---- Dictat ed By: Report s vrad 1848 Transc ribed By: Eliana Davis 1848 This is privil eged, confid ential inform ation intend ed only for the provid er named. Any use or distri bution by any person other than this provid er is strict ly prohib ited. If you receiv e this report in error, please notify us immedi ately at and return the origin al report to us at the addres s above. Thank- you. [facility] [address] [facility] [place], [address] 11/29/2023 09:49:12 11/28/19 24 11/28/2023 vrad repor t Patidonald t Name: Cristino Hart Unit #: [id number] Loc: ER Orderi ng Provid er: Accabdon t #: [id number] Status : REG ER Primar y Care Provid er: Elba Jett Date of Exam: Sex: F : 1949 Age: 73 Exam(s ) PROCED URE INFORM ATION: Exam: XR Chest Exam date and time: 11/28/19 7:25 PM Age: 73 years old Clinic al indica tion: Other: R/O CVA vs TIA TECHNI QUE: Imagin g protoc ol: Radiol ogic exam of the chest. Views: 1 view. COMPAR JD: CR XR CHEST 2V PA LATERA L 023 12:57 PM FINDIN GS: Lungs: No new parenc hymal mass or consol idatio n detect ed. Pleura l spaces : No pneumo thorax or pleura l effusi on is seen. Heart/ Medias tinum: Cardia c silhou ette is enlarg ed and vessel margin s remain sharpl y define d. Multip le lead left subcla vian transv enous pacer/ defibr illato r device now seen in positi on. Bones/ joints : No acute osseou s lesion s are detect ed. IMPRES JOSEFA: Cardio megaly with AICD device now seen in positi on and no acute cardio pulmon georgina proces s detect ed. Dictat ed and Authen ticate d by: Yohan Jennings MD. Orderi ng:Katherine miller MD Access ion#=[id number] Ordere d By: CC: ------ ------ ------ ------ ------ ------ ------ ------ ------ ------ ------ ------ ---- Dictat ed By: Report s vrad 1924 Transc ribed By: Eliana Davis 1924 This is privil eged, confid ential inform ation intend ed only for the provid er named. Any use or distri bution by any person other than this provid er is strict ly prohib ited. If you receiv e this report in error, please notify us immedi sheltonly at and return the origin al report to us at the addres s above. Thank- you. [facility] [address] [place], [address] 11/29/2023 09:49:13 11/28/19 24 11/28/2023 vrad repor t Patien t Name: Cristino Hart Unit #: [id number] Loc: ER Orderi ng Provid er: Accoun t #: [id number] Status : REG ER Primar y Care Provid er: Elba Jett Date of Exam: Sex: F : 1949 Age: 73 Exam(s ) Addend um create d by Yohan Jennings MD on 11/28/19 7:52:2 9 PM EDT: THIS REPORT CONTAI NS FINDIN GS THAT MAY BE CRITIC AL TO PATIEN T CARE. The findin gs were verbal ly commun icated via teleph one confer ence with ABELARDO DENTON at 7:52 PM EDT on 11/28/19. The findin gs were acknow ledged and unders tood. Initia l report create d on 11/28/19 7:46:2 1 PM EDT: PROCED URE INFORM ATION: Exam: CTA Head With Contra st, Arteri ograph y Exam date and time: 11/28/19 6:49 PM Age: 73 years old Clinic al indica tion: Stroke -like sympto ms; Right lower extrem ity and left lower extrem ity numbne ss/par esthes ia TECHNI QUE: Imagin g protoc ol: Comput ed tomogr aphic angiog courtney of the head with contra st. Exam focuse d on the arteri es. 3D render ing (Not superv ised by radiol ogist) : MIP and/or 3D recons tructe d images were create d by the techno logist . Contra st materi al: 350; Contra st volume : 85 ml; Contra st route: INTRAV ENOUS (IV); COMPAR JD: CT BRAIN NECK CTA 2022 2:11 PM FINDIN GS: ANTERI OR CIRCUL ATION: Right sports management internship al caroti d artery : Intrac ranial segmen t is patent with no signif icant stenos is. No aneury sm. Right middle cerebr al artery : No occlus ion or signif icant stenos is. No aneury sm. Right anteri or cerebr al artery : No occlus ion or signif icant stenos is. No aneury sm. Left sports management internship al caroti d artery : Intrac ranial segmen t is patent with no signif icant stenos is. No aneury sm. Left middle cerebr al artery : No occlus ion or signif icant stenos is. No aneury sm. Left anteri or cerebr al artery : No occlus ion or signif icant stenos is. No aneury sm. SENIOR CAPITAL MARKETS SPECIALIST IOR CIRCUL ATION: Right verteb ral artery : No occlus ion or signif icant stenos is. No aneury sm. Left verteb ral artery : No occlus ion or signif icant stenos is. No aneury sm. Basila r artery : No occlus ion or signif icant stenos is. No aneury sm. Right director of safety and security ior cerebr al artery : No occlus ion or signif icant stenos is. No aneury sm. Left director of safety and security ior cerebr al artery : No occlus ion or signif icant stenos is. No aneury sm. Brain: Cerebr al atroph y and probab le underl jagdeep microv ascula r ischem ic change s are again eviden t with no intrac ranial mass, acute transc ortica l infarc tion or recent intrac ranial hemorr janusz detect ed. Cerebr al ventri cles: Stable in config uratio n with no midlin e shift or hydroc ephalu s. Mastoi d air cells: Grossl y clear bilate rally. Parana irene sinuse s: Grossl y clear throug hout. Bones/ joints : No acute fractu re. Soft tissue s: Unrema rkable . IMPRES JOSEFA: 1. No large vessel stenos is or occlus ion detect ed involv ing the major branch es of the anteri or or director of safety and security ior intrac ranial circul ation. 2. No eviden ce of acute transc ortica l infarc tion, recent intrac ranial hemorr janusz or hydroc ephalu s with underl jagdeep atroph y and chroni c microv ascula r ischem ic change s noted as above. ====== ====== ====== ====== = PROCED URE INFORM ATION: Exam: CTA Neck With Contra st Exam date and time: 11/28/19 6:49 PM Age: 73 years old Clinic al indica tion: Stroke -like sympto ms; Right lower extrem ity and left lower extrem ity numbne ss/par esthes ia TECHNI QUE: Imagin g protoc ol: Comput ed tomogr aphic angiog courtney of the neck with contra st. Exam focuse d on the cervic al segmen ts of the vascul ature. 3D render ing (Not superv ised by radiol ogist) : MIP and/or 3D recons tructe d images were create d by the techno logist . Contra st materi al: 350; Contra st volume : 85 ml; Contra st route: INTRAV ENOUS (IV); COMPAR JD: CT BRAIN NECK CTA 2022 2:11 PM FINDIN GS: Right common caroti d artery : No stenos is. No dissec tion or occlus ion. Right sports management internship al caroti d artery : No stenos is of the extrac ranial segmen t. No dissec tion or occlus ion. Right automobile tester al caroti d artery : No occlus ion or stenos is of the origin . Left common caroti d artery : No stenos is. No dissec tion or occlus ion. Left sports management internship al caroti d artery : No stenos is of the extrac ranial segmen t. No dissec tion or occlus ion. Left automobile tester al caroti d artery : No occlus ion or stenos is of the origin . Right verteb ral artery : No stenos is. No dissec tion or occlus ion. Left verteb ral artery : No stenos is. No dissec tion or occlus ion. Soft tissue s: Normal . No signif icant soft tissue swelli ng. Bones/ joints : No acute fractu re. IMPRES JOSEFA: No eviden ce of 50% or greate r stenos is involv ing the cervic al segmen ts of the right or left sports management internship al caroti d arteri es by NASCET criter ia. REFERE NCES: NASCET CRITER IA. The degree of stenos is in the cervic al segmen t of the sports management internship al caroti d artery is based on NASCET criter ia. Normal is no stenos is. Mild is less than 50% stenos is. Modera te is 50-69% stenos is. Severe is 70% to 99% stenos is. Total occlus ion is no detect able patent lumen. Dictat ed and Authen ticate d by: Yohan Jennings MD. Ordertad ng:Katherine miller MD Access ion#=[id number] Ordere d By: CC: ------ ------ ------ ------ ------ ------ ------ ------ ------ ------ ------ ------ ---- Dictat ed By: Report s vrad 1848 Transc ribed By: Eliana Davis 1848 This is privil eged, confid ential inform ation intend ed only for the provid er named. Any use or distri bution by any person other than this provid er is strict ly prohib ited. If you receiv e this report in error, please notify us immedi sheltonly at [phone] and return the origin al report to us at the addres s above. Thank- you. [facility] [id number] [place], [address] 11/29/2023 09:49:13 11/29/19 24 11/29/2023 x-ray imagi ng repor t Patien t Name: Cristino Hart Unit #: [id number] Loc: [facility] Provid er: Charlette Denton Accoun t #: [id number] Status : ADM EJ Primar y Care Provid er: Elba Jett Date of Exam: Sex: F Admiss ion Date: : 1949 Age: 73 Exam(s ) XR CHEST 1V IN DI DEPT EXAM: XR CHEST 1V IN DI DEPT CLINIC AL HISTOR Y: r/o CVA vs TIA. TECHNI QUE: 2D digita l imagin g was perfor med. COMPAR JD: CR XR CHEST 2V PA LATERA L from 2022 FINDIN GS: Single AP portab le view. There has been interv al placem ent of a left subcla vian pacema ker with lead tips in RA and right ventri anny. Heart size is upper normal . The medias tinum is not widene d. Lungs are clear. No infilt rates nor obviou s pleura l effusi ons. IMPRES JOSEFA: No acute pulmon georgina findin gs on this single AP portab le view of the chest. Cardia c pacema ker. No pulmon georgina edema. No pleura l effusi ons. DATA REPOSI TORY: RADIAT ION DOSE DELIVE RED: Ordere d By: Charlette Denton CC: ------ ------ ------ ------ ------ ------ ------ ------ ------ ------ ------ ------ - Dictat ed By: Tashi Sánchez M.D. 08819 Transc ribed By: Princess HAY,Paul diamond 08 This is privil eged, confid ential inform ation intend ed only for the provid er named. Any use or distri bution by any person other than this [facility] er is strict ly prohib ited. If you receiv e this report in error, please notify us immedi ately at and return the origin al report to us at the addres s above. Thank- you. jeff [address], [place], [address] 11/29/2023 09:49:14 11/29/19 24 11/29/2023 CT imagi ng repor t Patidonald t Name: Cristino Hart Unit #: [id number] Loc: Ordertad ng Provid er: Charlette Denton Accoun t #: [id number] Status : DIS EJ Primar y Care Provid er: Elba Jtet Date of Exam: Sex: F : 1949 Age: 73 Exam(s ) a CT:CT brain neck CTA Exam(s ) CT BRAIN NECK CTA EXAM: CT BRAIN NECK CTA CLINIC AL HISTOR Y: 1800 onset: ISAACS + dizzy with lower leg numbne ss. TECHNI QUE: Imagin g Protoc ol: Axial CT angiog courtney was perfor med with multi- slice acquis ition and multi- planar and/or 3D recons tructi ons. CONTRA ST MATERI AL: Intrav enous: Omnipa que [address] volume :struc tured data in ml COMPAR JD: CT CT BRAIN NECK CTA from 2022 FINDIN GS: CTA Neck W: Aortic arch anatom y: The aortic arch anatom y is conven tional and there is no signif icant stenos is at the origin of the great vessel s off of the aortic arch. No intima l flap eviden t. Anteri or circul ation: Both common caroti d arteri es ascend with normal lumina l diamet ers. At the level the caroti d bulbs and proxim al sports management internship al caroti d arteri es there is minima l plaque withou t hemody namica lly signif icant stenos is eviden t. Both sports management internship al caroti d arteri es are demons trated to be patent in the upper neck and skull base- caroti d canals . Hide Buyer ior circul ation: Both verteb ral arteri es origin ate in conven tional fashio n off of the subcla vian arteri es and there is no obviou s stenos is at the origin of the verteb ral arteri es. Both verteb ral arteri es exhibi t normal lumina l diamet ers within the forame n transv ersari um. No signif icant stenos is nor dissec tion. Near the skull base there is some calcif ied mural plaque in both verteb ral arteri es but withou t tight stenos is at these levels . Both verteb ral arteri es contri bute to the format ion of the basila r artery at the skull base. CTA Brain W: Anteri or circul ation: Both sports management internship al caroti d arteri es are patent in the skull base-c arotid canals as well as within the cavern ous sinuse s. The suprac linoid aspect s of the ICAs are patent . Both A1 segmen ts are patent as are the anteri or cerebr al arteri es and there is no eviden ce of aneury sm at the level of the anteri or commun icatin g artery . Both middle cerebr al arteri es are patent with no eviden ce of signif icant stenos is nor intral uminal thromb us. There also no aneury sms of these vessel s. Hide Buyer ior circul ation: The basila r artery ascend s in the midlin e. Distal ly it gives off patent bilate ral superi or cerebe llar arteri es. Above this level the basila r artery termin ates as patent bilate ral director of safety and security ior cerebr al arteri es. There is also director of safety and security ior commun icatin g artery on the right side of the [place]. There is no eviden ce of aneury sm at the tip of the basila r artery nor elsewh ere in the [place]. CT BRAIN: There is no eviden ce of intrac ranial hemorr janusz, mass effect , or shift of midlin e struct ures. There are no extra- axial fluid collec tions. Ventri cles are not enlarg ed or shifte d. There are no ring enhanc ing lesion s in the brain and no abnorm al mening eal enhanc ement. Again noted is abunda nt bilate ral perive ntricu lar hypode nsity consis tent with chroni c small vessel diseas e. IMPRES JOSEFA: 1. Patent caroti d arteri es in the neck. No hemody namica lly signif icant stenos is. 2. Patent verteb ral arteri es. Some calcif ied plaque is noted in both verteb ral arteri es noted the skull base but no tight stenos is at this levels . Also no eviden ce of verteb ral artery dissec tion. 3. Patent intrac ranial arteri es. Also no aneury sms. 4. Abunda nt bilate ral perive ntricu lar hypode nsity consis tent with chroni c small vessel diseas e again noted. 5. If clinic ally indica ander follow -up MRI with diffus ion imagin g can be perfor med for added sensit ivity/ specif icity. RADIAT ION DOSE DELIVE RED: 1,890. 59mGy. cm Total DLP DATA REPOSI TORY: All CT scans at this facili ty are submit ander to the [facility] Radiol ogy Data Regist ry (NRDR) Dose Index Regist ry (DIR) with the [employer] [facility] martinez of Radiol ogy (ACR). RADIAT ION OPTIMI ZATION : All CT scans at this facili ty use at least one of these dose optimi zation techni ques: automa ander exposu re contro l; mA and/or kV adjust ment per patien t size (inclu hudson target ed exams where dose is matche d to clinic al indica tion); or iterat ryne recons tructi on. 09-0 016: Total DLP = 0.00 mGy-cm Ordere d By: Charlette Denton CC: ------ ------ ------ ------ ------ ------ ------ ------ ------ ------ ------ ------ ---- Dictat ed By: Tahsi Sánchez M.D. 1441 144 Transc ribed By: Princess HAY,Paul fields 1441 This is privil eged, confid ential inform ation intend ed only for the provid er named. Any use or distri bution by any person other than this provid er is strict ly prohib ited. If you receiv e this report in error, please notify us immedi camille at [phone] and return the origin al report to us at the addres s above. Thank- you. [facility] [address] [place], [address] 11/29/2023 14:50:21 12/30/19 24 12/30/2023 chayo beatty am No observ ation record ed. [facility] [address] [place], [address], 12/30/2023 12:41:49 12/31/19 24 12/31/2023 rhyth m strip , EKG* No observ ation record ed. [email or web address] Not Available 12/31/2023 13:33:00 Result Notes None recorded. Problems Name Status Onset Date Resolution Date Notes Provider Name and Address Organization Details Recorded Time Hyperlipidemi a Active 2005 on repatha, statin intolerant MD [address], [place], [address] , [facility] 19:48:59 Rosacea Completed 200307/24/2023 Problem Code: L71.9; Problem Code Type: ICD-10; MD [address], [place], [address] , [facility] 19:37:39 Essential hypertension Active [address], [place], [address] , [facility] 4 19:38:21 Type 2 diabetes mellitus without complication Completed 200507/24/2023 11/29/2019 - Comments only - Franny Davison MD - hemoglobin A1c is drifting upward, increase Lantus to 40 units nightly, no other change but could consider increasing dapaglifozin to 10 mg, need to watch quite carefully for further UTI or vaginitis given her ongoing history of incontinence Problem Code: E11.9; Problem Code Type: ICD-10; MD [address], [place], [address] , [facility] 4 15:19:41 Allergic rhinitis Completed 201407/24/2023 09/26/2018 Problem Code: J30.9; Problem Code Type: ICD-10; Sameera Short simona, [facility] 4 12:27:18 Mild intermittent asthma Completed 201507/24/2023 Problem Code: J45.20; Problem Code Type: ICD-10; ELBA JETT MD [address], 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 Statin s/e is a strong possibility, especially since she reports she has had this reaction in the past. Will check CK. 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 Alternative options are limited. She has had adverse reactions to ezetimibe and niacin. Furthermore, there is no demonstrated benefit for prevention of stroke recurrence for non-statin medications. Recommend continuation of statin pending results of further work-up. Discussed with pt, and she agrees to continue for now. Will get blood-work to assess for other possibilities - CMP to r/o electrolyte imbalance and to check renal and hepatic function; CBCD to r/o severe anemia or infection, though the latter is unlikely by history; ESR and CRP to look for signs of autoinflammat ory disease; TSH w/ref; magnesium. Will f/u as indicated pending results. In the meantime, encouraged adequate hydration, and ER for any severely worsening symptoms, new neurological symptoms, or other alarming findings Problem Code: M79.1; Problem Code Type: ICD-10; MD Regan [address], [facility] [phone] [place] [address] 4 13:23:43 Disorder of skin and/or subcutaneous tissue Completed 201701/25/2018 Problem Code: L98.9; Problem Code Type: ICD-10; Not Available [facility] 3 04:19:16 Overflow incontinence of urine Completed 201807/24/2023 Problem Code: N39.490; Problem Code Type: ICD-10; MD Regan [address], [facility] [phone] [place] [address] 4 19:37:43 Screening mammography Completed 201806/25/2023 Problem Code: Z12.31; Problem Code Type: ICD-10; MD Regan [address], [facility] [address] , [facility] 4 19:42:41 Hypercalcemia Active [address], [facility] [address] 4 19:40:41 Urge incontinence of urine Completed 201807/24/2023 Problem Code: N39.41; Problem Code Type: ICD-10; MD [address]an [address], [facility] [address] , [facility] 4 19:40:30 History of recurrent pneumonia Completed 201802/14/2019 Problem Code: Z87.01; Problem Code Type: ICD-10; Not Available [facility] 3 04:19:17 Squamous cell carcinoma of skin of face Completed 201907/24/2023 11/29/2019 - Comments only - Franny Davison MD - she will be scheduled for surgery in the near future, recommending holding apixaban 3 days prior to procedure and then restarting, Problem Code: C44.320; Problem Code Type: ICD-10; MD Regan [address], [address] 4 19:37:37 Major depression, single episode Completed 201907/24/2023 Problem Code: F32.9; Problem Code Type: ICD-10; MD Regan [address], [facility] [address] , [facility] 4 19:37:48 Adjustment disorder with mixed anxiety and depressed mood Completed 201907/24/2023 Problem Code: F43.23; Problem Code Type: ICD-10; MD Regan [address], [address] 4 19:39:12 Neuropathy due to type 2 diabetes mellitus Active [address], [facility] [address] , [facility] 4 19:48:19 Proteinuria Completed 202007/24/2023 Problem Code: R80.9; Problem Code Type: ICD-10; MD Regan [address], [facility] [address] , [facility] 4 19:38:51 Hyperparathyr oidism Active [address], [facility] [address] , [facility] 4 19:40:21 Vitamin B deficiency Active [address], [facility] [address] , [facility] 4 19:38:27 Chest pain Completed 202107/24/2023 Problem Code: R07.89; Problem Code Type: ICD-10; MD Regan [address] Dr, [address] 4 09:51:51 Essential tremor Active 2021 Stable MD [address], [address] 4 19:20:59 Abnormal involuntary movement Completed 202107/24/2023 Problem Code: R25.8; Problem Code Type: ICD-10; MD Regan [address], [address] 4 19:36:57 Screening for cancer Completed 202106/25/2023 Problem Code: Z12.10; Problem Code Type: ICD-10; MD Regan [address], [address] 4 13:23:13 Cough Completed 202106/13/2022 Problem Code: R05.8; Problem Code Type: ICD-10; Not Available [facility] 3 04:19:19 Anesthesia of skin Completed 202206/25/2023 Problem Code: R20.0; Problem Code Type: ICD-10; MD Regan [address], [place] [address] , [facility] 13:23:29 Ventricular tachycardia Completed 202207/24/2023 Problem Code: I47.20; Problem Code Type: ICD-10; MD Regan [address], 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 MD Regan [address] Dr, [facility] [address] [place] [address] 19:47:04 Ulcer of duodenum Completed 202207/24/2023 Problem Code: K26.9; Problem Code Type: ICD-10; MD Regan [address], [facility] [address] [place] [address] 19:37:54 Hemorrhagic esophagitis Completed 202207/24/2023 Problem Code: K20.91; Problem Code Type: ICD-10; MD Regan [address], [place], [address] , [facility] 4 19:38:17 Acute posthemorrhag ic anemia Completed 202207/24/2023 Problem Code: D62; Problem Code Type: ICD-10; MD Regan [address] Dr, [facility] [address] , [facility] 4 19:37:07 Hypertrophic cardiomyopath y Active [address], [facility] [address] , [facility] 4 19:58:46 Urinary tract infectious disease Completed 201805/08/2019 Problem Code: N39.0; Problem Code Type: ICD-10; Not Available [facility] 3 04:19:23 Right lower quadrant pain Completed 201810/23/2019 Problem Code: R10.31; Problem Code Type: ICD-10; Not Available [facility] 3 04:19:23 Screening for osteoporosis Completed 201705/07/2022 Problem Code: Z13.820; Problem Code Type: ICD-10; Not Available [facility] 3 04:19:23 Breast composition Completed 201404/14/2016 Not Available [facility] 3 04:19:24 Parkinson's disease Completed 202102/03/2022 Problem Code: G20; Problem Code Type: ICD-10; Not Available [facility] 3 04:19:24 Diarrhea Completed 201805/07/2022 Problem Code: R19.7; Problem Code Type: ICD-10; Not Available [facility] 3 04:19:24 Chorea Completed 202004/10/2021 Problem Code: G25.5; Problem Code Type: ICD-10; Not Available [facility] 3 04:19:24 Blood chemistry outside reference range Completed 201609/24/2022 Problem Code: R79.89; Problem Code Type: ICD-10; Not Available [facility] 3 04:19:24 Dyspnea Completed 201810/23/2019 Problem Code: R06.02; Problem Code Type: ICD-10; MD Regan [address], [facility] [address] [place] [address] 4 19:42:49 Chest pain Completed 202004/10/2021 Problem Code: R07.89; Problem Code Type: ICD-10; MD Regan [address], [facility] [phone] [place] [address] 4 09:51:51 Bleeding from nose Completed 201606/29/2017 Problem Code: R04.0; Problem Code Type: ICD-10; Not Available [facility] 3 04:19:25 Hyperglycemia due to type 2 diabetes mellitus Completed 201504/14/2016 Problem Code: E11.65; Problem Code Type: ICD-10; Not Available [facility] 3 04:19:26 Upper respiratory tract infection caused by Influenza A Completed 202109/08/2022 Problem Code: J09.x2; Problem Code Type: ICD-10; Not Available [facility] 3 04:19:26 Hypertensive disorder Completed 200603/17/2023 Not Available [facility] 3 04:19:26 Type 2 diabetes mellitus Completed 200503/17/2023 Not Available [facility] 3 04:19:27 Adult health examination Completed 201605/19/2017 Problem Code: Z00.00; Problem Code Type: ICD-10; Not Available [facility] 3 04:19:27 Exposure to communicable disease Completed 202011/26/2020 Problem Code: Z20.9; Problem Code Type: ICD-10; Not Available [facility] 3 04:19:27 Bilateral earache Completed 201705/09/2018 Problem Code: H92.03; Problem Code Type: ICD-10; Not Available [facility] 3 04:19:27 Chest pain Completed 202111/03/2021 Problem Code: R07.9; Problem Code Type: ICD-10; MD Regan [address] Dr, [address] 4 09:51:51 Increased frequency of urination Completed 201502/03/2022 Problem Code: R35.0; Problem Code Type: ICD-10; Not Available [facility] 3 04:19:28 Acute urinary tract infection Completed 202206/25/[address], [address] 4 13:23:38 Muscle weakness Active 2022 TORY FERGUSON RN [facility], [facility] 3 12:36:18 Screening mammography Completed 201507/24/2023 Problem Code: Z12.31; Problem Code Type: ICD-10; MD Regan [address], [address] 4 19:42:41 Generalized skin eruption caused by drug and medicament Completed 202207/24/2023 Problem Code: L27.0; Problem Code Type: ICD-10; MD Regan [address] Dr, [facility] [address] [place] [address] 4 19:42:34 Candidiasis of vulva Completed 202207/24/[address], [facility] [address] [place] [address] 4 19:40:45 Automatic implantable cardiac defibrillator in situ Active 2022 [employer] Bi-V ICD. Placed 11/2022 at [facility] MD [address], [address] 19:44:34 Dizziness and giddiness Active 2022 Problem Code: R42; Problem Code Type: ICD-10; MD Regan [address], [address] 19:42:51 Dyspnea Completed 202207/24/2023 Problem Code: R06.09; Problem Code Type: ICD-10; MD Regan [address], [address] 19:42:49 Red blood cell finding Completed 202207/24/2023 Problem Code: R71.8; Problem Code Type: ICD-10; MD Regan [address], [address] 19:42:46 Vulval and/or perineal noninflammato ry disorders Completed 202207/24/2023 Problem Code: N90.89; Problem Code Type: ICD-10; MD Regan [address], [address] 19:42:37 Dysuria Completed 202207/24/2023 Problem Code: R30.0; Problem Code Type: ICD-10; MD Regan [address] Dr, [address] 19:43:56 Atheroscleros is of coronary artery without angina pectoris Active 2022 s/p HUDSON to RCA MD Regan [address] Dr, [address] 4 19:43:[address] Paredes monitoring, concern for Parkinsism, Jay scan 11/09 negative. MD [address], 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 S/p ICD implantation. MD Regan MCG[address] Dr, [place] [id number] , [facility] 4 19:46:00 Paroxysmal atrial fibrillation Active [address], [place] [address] , [facility] 4 19:46:19 Heart failure with normal ejection fraction Active 2023 NYHA stage 3. Followed by [facility] cardiology, Carlos Ha NP, MD [address], [facility] [address] , [facility] 4 19:53:02 Dilated cardiomyopath y Active [address], [facility] [address] , [facility] 4 19:46:57 Type II diabetes mellitus uncontrolled Active [address], [place], [address] , [facility] 4 19:47:49 Type 2 diabetes mellitus without complication Completed 202308/23/2023 11/29/2019 - Comments only - Franny Davison MD - hemoglobin A1c is drifting upward, increase Lantus to 40 units nightly, no other change but could consider increasing dapaglifozin to 10 mg, need to watch quite carefully for further UTI or vaginitis given her ongoing history of incontinence Problem Code: E11.9; Problem Code Type: ICD-10; MD Regan [address], [place], [address] , [facility] 4 15:19:41 Recurrent urinary tract infection Active 2023 Sameera jarvis, [facility] 4 12:36:35 Memory impairment Active 2023 Sameera jarvis, [facility] 4 12:36:32 Hemiplegia and/or hemiparesis following stroke Active [address], [place], [address] , [facility] 4 07:09:33 Actinic keratosis Active [address], [place], [address] , [facility] 4 07:32:48 Tremor Active 2023 FILOMENA GREGG MA null, [facility] 4 10:14:28 Neuropathic pain Active 2023 FILOMENA GREGG MA null, [facility] 4 10:14:50 Cervical radiculopathy Active 2023 FILOMENA GREGG MA null, [facility] 4 10:15:16 Sciatica Active 2023 FILOMENA GREGG MA null, [facility] 4 10:15:27 Impairment of balance Active 2023 FILOMENA GREGG MA null, [facility] 4 10:16:14 Neuropathy Active [address], [facility] [phone] [place] [address] 4 11:01:37 Overweight Active [address], [facility] [phone] [place] [address] 4 09:42:35 Dyspnea on exertion Active [address], [facility] [address] [place] [address] 4 09:42:35 Chest pain Active 2023 Problem Code: R07.89; Problem Code Type: ICD-10; MD Regan [address] Dr, [facility] [address] [place] [address] 4 09:51:51 Problem Notes None recorded. Procedures Surgical History Date Name Laterality Status Provider Name and Address Organization Details Recorded Time 12/09/19 23 endovascular insertion of drug eluting stent completed MD Regan MCGEE Dr, [facility] [address], [facility] 07/24/2023 19:50:55 01/20/20 13 Hysterectomy completed MD Regan MCGEE Dr, [facility] [address] [place] [address] 07/24/2023 19:39:58 Imaging Results None recorded. Procedure Notes None recorded. Medical Equipment None Reported. Allergies Allergen ID Allergen Name Allergen Category Reaction Reaction Severity Criticality Documentation Date Start Date Code Code System Note Provider Name and Address Organization Details Recorded Time 79911 Iodinated contrast media (substanc e) medicatio n Not available Not available Not available 04/30/20232002 63448 2004 SNOMED Aller gyNam e: 'IVP DYE'; Not Available [facility] 3 16:31:18 10527 Product containin g 3-hydroxy -3-methyl glutaryl- coenzyme A reductase inhibitor (product) medicatio n Not available Not available Not available 04/30/20232017 46612 009 SNOMED Not Available [facility] 3 16:31:19 39437 lisinopri l medicatio n cough mild Not available 04/30/20232015 18723 RxNorm cough Aller gyCod e: '3140 76'; Aller gyNam e: 'SARAH NOPRI L'; Aller gyCon ceptT ype: 'RX Norm' ; Not Available [facility] 3 16:31:19 19297 Zetia medicatio n myalgias (muscle pain) mild Not available 04/30/20232006 71530 9 RxNorm MYALG IA Not Available [facility] 3 16:31:20 04793 Plaquenil medicatio n myalgias (muscle pain) mild Not available 04/30/20232006 23055 2 RxNorm MYALG [place] Not Available [facility] 3 16:31:20 38351 Cozaar medicatio n Not available Not available Not available 04/30/20232004 02823 8 RxNorm Not Available [facility] 3 16:31:20 67220 atenolol medicatio n cough mild low 05/05/20232022 1202 RxNorm [facility] 3 12:16:33 27636 acetamino phen / oxycodone medicatio n rash moderate high 05/05/20232022 64871 3 RxNorm LACEY DORMAN [facility] 3 12:17:17 15474 Plavix medicatio n rash severe high 05/05/20232022 85041 2 RxNorm ELBA JETT MD [address], [place], [address] , [facility] 4 19:41:48 71364 ticagrelo r medicatio n abdominal pain severe Not available 07/02/20232022 57174 32 RxNorm Aller gyRea ction : 'Carlos Manuel roint estin al,'; Aller gyNam e: 'ILA GRELO R'; Not Available [facility] 4 05:10:26 30970 aspirin medicatio n Not available Not available high 07/23/2023 1191 RxNorm GI bleed ELBA JETT MD [address], [place], [address] , [facility] 4 19:41:13 90472 Jardiance medicatio n Not available Not available low 07/24/2023 06365 59 RxNorm recur rent yeast infec tions and UTIs ELBA JETT MD [address], [place], [address] , [facility] 4 19:42:15 Medications Name Sig Start Date Stop Date Status Note LastModified by Organization Details LastModified Time Prescript ion - Change 06/25 completed Not Available Not Available Not Available furosemid e 40 mg tablet Take 1 tablet every day by oral route for 3 days. 2023 active Not Available Not Available Not Avai lable metformin 500 mg tablet Take 2 by mouth twice daily 2014 active Not Available Not Available Not Avai lable donepezil 5 mg tablet Take 1 tablet every day by oral route. 07/[address] Paredes Not Available Not Available Not Available cetirizin e 10 mg tablet 03/13 completed Not Available Not Available Not Available azithromy justus 250 mg tablet TAB daily 12/19 completed Not Available Not Available Not Available glyburide 5 mg tablet 1 TAB twice daily 10/30 completed Not Available Not Available Not Available fluconazo le 150 mg tablet TAKE ONE TABLET BY MOUTH EVERY 72 HOURS 06/25 completed Not Available Not Available Not Available glyburide 2.5 mg tablet Take 1 by mouth daily 07/09 completed Not Available Not Available Not Available B Complex-V itamin B12 tablet active Not Available Not Available Not Available valacyclo vir 1 gram tablet 2 tabs q 12 hours for 2 doses 07/09 completed for herpes labialis Not Available Not Available Not Available glipizide ER 10 mg tablet, extended release 24 hr Take 1 tab by mouth daily 05/10 completed per [facility] Not Available Not Available Not Available Elidel 1 % topical cream Apply 1 a small amount to skin once a day as needed 08/05 completed Not Available Not Available Not Available fluoroura cil 5 % topical cream APPLY TOPICALL Y TO HAND AND NECK ( PER PT) TWO TIMES A DAY FOR 3 WEEKS 12/05 completed Not Available Not Available Not Available Lantus U-100 Insulin 100 unit/mL subcutane ous solution Inject 30 units at HS 05/11 completed Not Available Not Available Not Available chlorthal idone 25 mg tablet Take 1 tab by mouth daily 05/19 completed Not Available Not Available Not Available acyclovir 400 mg tablet Take 1 tablet every 8 hours for 5 days 08/30 completed Not Available Not Available Not Available Plavix 75 mg tablet Take 1 tablet by mouth once a day 06/25 completed Per [facility] D/C summary 12/09/22 Not Available Not Available Not Available ciproflox acin 500 mg tablet Take 1 tab by mouth twice daily 08/22 completed Not Available Not Available Not Available aspirin 81 mg tablet,de layed release TAKE ONE TABLET BY MOUTH EVERY DAY 12/05 completed Not Available Not Available Not Available spironola ctone 25 mg tablet TAKE ONE-HALF (1/2) TABLET DAILY active Not Available Not Available No t Available pantopraz ole 20 mg tablet,de layed release 11/18 completed Not Available Not Available Not Available hydrocort isone 2.5 % topical cream with perineal applicato r APPLY TO AFFECTED AREA(S) TWO TIMES A DAY NEEDED FOR ITCHING 11/02 completed Not Available Not Available Not Available amoxicill in 875 mg tablet 1 TAB twice daily 10/04 completed Not Available Not Available Not Available tamsulosi n 0.4 mg capsule TAKE ONE CAPSULE BY MOUTH EVERY DAY 06/25 completed Not Available Not Available Not Available OneTouch Ultra Test strips Test blood glucose three times a day DX: E11.9 2017 active Not Available Not Available Not Avai lable cephalexi n 500 mg capsule Take 1 capsule twice a day by oral route for 7 days. 06/25 completed Not Available Not Available Not Available pantopraz ole 40 mg tablet,de layed release TAKE 1 TABLET TWICE A DAY active Not Available Not Available No t Available simvastat in 20 mg tablet 1TAB QHS 01/26 completed Not Available Not Available Not Available nitrofura ntoin macrocrys aaron 100 mg capsule TAKE ONE CAPSULE BY MOUTH TWICE A DAY FOR 10 DAYS WITH MEAL/RICKIE D 06/25 completed Not Available Not Available Not Available losartan 25 mg tablet TAKE 1 TABLET DAILY active Not Available Not Available No t Available ciproflox acin 500 mg tablet 1 TAB twice daily 09/01 completed Not Available Not Available Not Available candesart an 32 mg tablet TAKE 1 TABLET DAILY 11/17 completed Not Available Not Available Not Available Magnesium -Oxide 400 mg tablet Take 1 tablet by mouth once a day 2016 active Per discharg e instruct ions 03/2017 Not Available Not Available Not Available gabapenti n 300 mg capsule Take 2 capsules twice a day by oral route as needed. active Not Available Not Available No t Available Aspirin Childrens 81 mg chewable tablet Take 1 tablet by mouth once a day 11/17 completed started at [facility] discharg e followin g recurren t TIA Not Available Not Available Not Available hydrocort isone 2.5 % topical cream Apply 1 a small amount to affected area twice a day as needed for itching 11/02 completed Not Available Not Available Not Available hydrochlo rothiazid e 25 mg tablet 1 tab daily 04/14 completed Not Available Not Available Not Available Levaquin 500 mg tablet 1 TAB QD 07/11 completed Not Available Not Available Not Available gabapenti n 100 mg capsule 1 once a day as needed 04/10 completed Not Available Not Available Not Available metoprolo l succinate ER 25 mg tablet,ex tended release 24 hr 1 tab daily active Not Available Not Available No t Available albuterol 90 mcg/actua tion aerosol inhaler 2 PUFFS Q 4-6 hours 07/26 completed Not Available Not Available Not Available methylpre dnisolone 4 mg tablets in a dose pack FOLLOW PACKAGE DIRECTIO NS FOR 6 DAYS 06/25 completed Not Available Not Available Not Available Atacand HCT 32 mg-12.5 mg tablet 1 TAB QD 04/27 completed Not Available Not Available Not Available Cipro 250 mg tablet 1 TAB twice daily 02/15 completed Not Available Not Available Not Available ondansetr on 4 mg disintegr ating tablet Take 1 tablet on tongue every eight hours as needed for nausea and vomiting 11/17 completed Per [facility] ED 11/02/22 Not Available Not Available Not Available fluticaso ne propionat e 50 mcg/actua tion nasal spray,kaylyn pension two sprays daily 04/14 completed Not Available Not Available Not Available metformin ER 500 mg tablet,ex tended release 24 hr TAKE 1 TABLET DAILY WITH THE METFORMI N 750 MG 08/30 completed Not Available Not Available Not Available Augmentin 500 mg-125 mg tablet Take 1 tablet twice a day for 3 days 01/31 completed Not Available Not Available Not Available Diltiazem HCl CR 240 mg capsule,e xtended release 1 TAB BID 05/09 completed Not Available Not Available Not Available Ventolin HFA 90 mcg/actua tion aerosol inhaler Inhale 2 puff as directed every four to six hours as needed FOR COUGHING FITS, WHEEZE, SHORTNES S OF BREATH 06/06 completed Not Available Not Available Not Available metoprolo l tartrate 5 mg/5 mL intraveno us solution 12.5 mg daily 12/17 completed Not Available Not Available Not Available Diltiazem HCl CR 120 mg capsule,e xtended release 1 cap BID 09/27 completed Not Available Not Available Not Available Bactrim DS 800 mg-160 mg tablet 1 TAB twice daily 02/03 completed Not Available Not Available Not Available Novolog FlexPen U-100 Insulin aspart 100 unit/mL (3 mL) subcutane ous sliding scale -- up to 20 units / day total 02/18 completed october substitu te with humalog pen if preferre d by [facility] e ID# [id number] Not Available Not Available Not Available diltiazem ER 360 mg tablet,ex tended release 24 hr 1 QD 04/07 completed Not Available Not Available Not Available metformin ER 750 mg tablet,ex tended release 24 hr TAKE 1 TABLET TWICE A DAY 2023 active Not Available Not Available Not Avai lable Ciprodex 0.3 %-0.1 % ear drops,kaylyn pension Instill four drops twice daily x 7 days 05/09 completed Not Available Not Available Not Available Crestor 10 mg tablet Take 1 tab by mouth daily at bedtime 2016 active Not Available Not Available Not Avai lable Crestor 20 mg tablet Take 1/2 tab by mouth daily at bedtime 09/26 completed Not Available Not Available Not Available metoprolo l tartrate 25 mg tablet Take 1/2 tablet by mouth once a day 06/25 completed Not Available Not Available Not Available metformin ER 500 mg tablet,ex tended release 24hr (osmotic) 1TAB twice daily 2014 active Not Available Not Available Not Avai lable nitrofura ntoin monohydra te/macroc rystals 100 mg capsule 1 capsule by mouth twice a day 06/25 completed Not Available Not Available Not Available Byetta 10 mcg/dose( 250 mcg/mL)2. 4 mL subcutane ous pen injector inject twice a day 07/14 completed Not Available Not Available Not Available BreatheRi te MDI Spacer use with inhaler 06/06 completed Not Available Not Available Not Available pregabali n 100 mg capsule Take 1 capsule by mouth twice a day 09/[address] Paredes Not Available Not Available Not Available niacin 09/07 completed Not Available Not Available Not Available Fluticaso ne Propionat e (Nasal) 2 SPRAY daily 07/26 completed Not Available Not Available Not Available One Touch Test Strips USE UD QD 08/01 completed Not Available Not Available Not Available Levemir FlexPen 100 unit/mL (3 mL) solution subcutane ous insulin pen INJ SQ AT BEDTIME 08/11 completed Not Available Not Available Not Available Vitamin D3 10 mcg (400 unit) capsule active Not Available Not Available Not Available Januvia 100 mg tablet 1 TAB QD 07/04 completed Not Available Not Available Not Available Lantus Solostar U-100 Insulin 100 unit/mL (3 mL) subcutane ous pen Inject 18 units subcutan eously twice a day active Not Available Not Available No t Available Humalog KwikPen (U-100) Insulin 100 unit/mL subcutane ous Inject 3 times daily prior to meals subcutan eously as directed : for glucose of 100-150 give 1 unit, 151-200 give 2 units, 201-250 give 3 units, 251-300 give 4 units active Not Available Not Available No t Available Novofine 32 32 gauge x 1/4 needle 1 needle subcutan eously four times a day . Dx: E11.9 02/13 completed Not Available Not Available Not Available Zyrtec 10 mg capsule Take 1 capsule every day by oral route. active Not Available Not Available No t Available BD Ultra-Fin e Laila Pen Needle 32 gauge x 5/32 Use 1 needle subcutan eously four times a day 02/08 completed Not Available Not Available Not Available Probiotic 10 billion cell capsule 1 tablet once a day 09/24 completed Not Available Not Available Not Available Probiotic 1 tab daily 2018 active Not Available Not Available Not Avai lable magnesium 400 mg (as magnesium oxide) capsule Take 1 tab by mouth daily 2016 active Per discharg e instruct ions 03/2017 Not Available Not Available Not Available lactobaci ll.acidop hilus (bulk) active Not Available Not Available Not Available Victoza 2-Felipe 0.6 mg/0.1 mL (18 mg/3 mL) subcutane ous pen injector inject daily 1.8 mg E 11.9 02/13 completed Not Available Not Available Not Available Eliquis 5 mg tablet TAKE 1 TABLET TWICE A DAY active Not Available Not Available No t Available Farxiga 10 mg tablet One tab by mouth daily 05/31 completed Not Available Not Available Not Available Farxiga 5 mg tablet Take 1 tablet by mouth daily 2019 active Not Available Not Available Not Avai lable Jardiance 10 mg tablet Take 1 tablet by mouth once a day 06/25 completed Not Available Not Available Not Available Trulicity 1.5 mg/0.5 mL subcutane ous pen injector 1.5mg sc weekly 06/29 completed endocrin ology Not Available Not Available Not Available Trulicity 0.75 mg/0.5 mL subcutane ous pen injector Give pt 0.75 mg SQ once a week 09/10 completed Not Available Not Available Not Available colchicin e 0.6 mg capsule Take 1 cap by mouth twice daily 01/24 completed [facility] discharg e Not Available Not Available Not Available Repatha Syringe 140 mg/mL subcutane ous syringe INJECT 140 MG UNDER THE SKIN EVERY OTHER WEEK 07/24 completed Not Available Not Available Not Available Repatha SureClick 140 mg/mL subcutane ous pen injector INJECT 1ML UNDER THE SKIN EVERY 2 WEEKS 2023 active Not Available Not Available Not Avai lable Brilinta 60 mg tablet TAKE ONE TABLET BY MOUTH TWICE A DAY 06/25 completed Not Available Not Available Not Available Shingrix (PF) 50 mcg/0.5 mL intramusc ular suspensio n, kit administ er Im now and repeat dose in 2-6 months 09/26 completed Not Available Not Available Not Available Ozempic 1 mg/dose (2 mg/1.5 mL) subcutane ous pen injector Inject 1 mg subcutan eously once a week 04/05 completed [facility] Not Available Not Available Not Available Ozempic 0.25 mg or 0.5 mg (2 mg/1.5 mL) subcutane ous pen injector Inject 0.25 mg subcutan eously once a week For 4 weeks 12/28 completed Not Available Not Available Not Available FreeStyle Lo 2 Sensor kit 11/07 completed Not Available Not Available Not Available Ozempic 1 mg/dose (4 mg/3 mL) subcutane ous pen injector Inject by subcutan eous route. 06/25 completed Not Available Not Available Not Available Ozempic 2 mg/dose (8 mg/3 mL) subcutane ous pen injector Inject 2 mg every week by subcutan eous route. active Not Available Not Available No t Available FreeStyle Lo 3 Sensor device Change sensor every 14 days active Not Available Not Available No t Available Ozempic 0.25 mg or 0.5 mg (2 mg/3 mL) subcutane ous pen injector INJECT 0.25 MG UNDER THE SKIN ONCE A WEEK FOR 4 WEEKS THEN DIRECTED 06/04 completed Not Available Not Available Not Available FreeStyle Lo 3 Foley Use as directed active Not Available Not Available No t Available Vitals Date Recorded Body height Body mass index (BMI) Body weight Body temperature Oxygen saturation Oxygen saturation in Arterial blood by Pulse oximetry Heart rate Systolic blood pressure Diastolic blood pressure Provider Name and Address Organization Details Last Updated DateTime 4 162.56 cm 26.9 kg/m2 68347 g 97.8 [degF] 96 % 96 % 101 /min 140 mm[Hg] 86 mm[Hg] FILMOENA GREGG MA [facility] 08:25:36 Social History Question Answer Notes LastModified by Organizat ion Details LastModified Time Tobacco Smoking Status Never Smoker LACEY DORMAN, [facility] 05/05/2023 13:38:34 What Is Your Level Of Alcohol Consumption? None Information not available 05/05/2023 Date Care Plan Printed: 08/12/2023 First Printed 04/26/23 (old System) Information not available 08/12/2023 Assigned Manager Pulmonary: Leisa Segovia Information not available 08/12/2023 Is [facility] The Lead Manager Pulmonary? Yes Information no t available 08/12/2023 Level Of Intensity: Quarterly Information not available 08/12/2023 Team Based Care: Yes Informat ion not available 08/12/2023 Other Barriers To Care (See Note) Yes Pt Is Forgetful. Heart Issues Have Her Concerned. Prefers Not To Have A Lot Of Apptmts. Unable To Exercise D/t Heart Issues Information not available 08/12/2023 Learning Barrier Yes Pt Is Forgetful Information not available 09/30/2023 Last Care Team Meeting 08/11/2023 Information not available 08/12/2023 Transportation Barrier Yes She Relies On Her Information not available 08/12/2023 Behavioral Health Yes Works With [facility] On And Off Information not available 08/12/2023 Diabetes Education Yes Information not available 08/12/2023 Chronic Disease Management Yes Information not available 10/22/2023 Diabetes Self Management Program Yes Information not available 08/12/2023 Diabetes Support Group Yes Information not available 08/12/2023 Home Health Agency Yes Information not available 08/12/2023 Providers Yes Information no t available 09/30/2023 Do You Use Any Illicit Or Recreational Drugs? No Information not available 05/05/2023 Has Tobacco Cessation Counseling Been Provided? No Information not available 05/05/2023 Do You Or Have You Ever Used Any Other Forms Of Tobacco Or Nicotine? No Information not available 05/05/2023 Sex: Female Functional Status None recorded. Mental Status None recorded. Family History Relationship Description Onset Age of this Age Resolved Age Notes Brother Family history of Hypercholesterolemia Brother Family history of Hypertension Brother Family history of di abetes mellitus type 1 Sister Family history of Hypercholesterolemia Sister Family history of Hypertension Sister Family history of di abetes mellitus type 1 Mother Family history of Hypertension Father Family history of alcoholism Notes:*Problem: MOTHER - HTN FATHER - at 62y/o - ETOHism, ?DM SISTERS x 3 - DM2 x 2, HPL x 3 BROTHERS x 5 - HPL x ?5, HTN x 2, ETOHism x several SONS x 2 - L&W without ongoing medical issues DAUGHTER x 1 - ETOHism x 1 Joanna reports h/o CAD in paternal uncle. She denies known family h/o thyroid disorders, colon CA, breast CA, ovarian CA, or mental illness Medical History Condition Response Gastrointestinal Disease Neurologic Disorder Heart Disease Y Gynecological HistoryNo gynecological history recorded. Obstetrics History GPAL:G 0 P 0 0 0 0 Immunizations Vaccine Type Date Status Provider Name and Address Organization Details Recorded Time Td (adult), 2 Lf tetanus toxoid, preservative free, adsorbed 08/05/2021 completed Not Available [facility] 04/30/2023 05:10:29 Tdap 12/18/2011 completed Not Available [facility] 05:10:29 zoster live 07/12/2012 completed Not Available [facility] 04/30/2023 05:10:29 Pneumococcal conjugate PCV 13 06/29/2017 completed Not Available [facility] 04/30/2023 05:10:29 Influenza, high-dose, trivalent, PF 05/09/2018 completed Not Available [facility] 04/30/2023 05:10:29 Td(adult) unspecified formulation 10/01/2005 completed Not Available [facility] 04/30/2023 05:10:30 Td(adult) unspecified formulation 12/18/2011 completed Not Available [facility] 04/30/2023 05:10:30 Td(adult) unspecified formulation 04/06/1996 completed Not Available [facility] 04/30/2023 05:10:30 Influenza, split virus, trivalent, preservative 03/13/2015 completed Not Available [facility] 04/30/2023 05:10:30 Influenza, split virus, trivalent, preservative 04/14/2016 completed Not Available [facility] 04/30/2023 05:10:30 Influenza, split virus, quadrivalent, preservative 04/27/2017 completed Not Available [facility] 04/30/2023 05:10:31 Influenza, MDCK, quadrivalent, PF 05/08/2019 completed Not Available [facility] 04/30/2023 05:10:32 Influenza, high-dose, quadrivalent, PF 04/21/2022 completed Not Available [facility] 04/30/2023 05:10:32 COVID-19, mRNA, LNP-S, PF, 100 mcg/0.5mL dose or 50 mcg/0.25mL dose 11/03/2021 completed Not Available [facility] 04/30/2023 05:10:32 COVID-19, mRNA, LNP-S, PF, 30 mcg/0.3 mL dose 08/19/2020 completed Not Available [facility] 04/30/2023 05:10:32 COVID-19, mRNA, LNP-S, PF, 30 mcg/0.3 mL dose 09/16/2020 completed Not Available [facility] 04/30/2023 05:10:32 COVID-19, mRNA, LNP-S, PF, 30 mcg/0.3 mL dose 04/10/2021 completed Not Available [facility] 04/30/2023 05:10:33 COVID-19, mRNA, LNP-S, bivalent, PF, 30 mcg/0.3 mL dose 05/07/2022 completed Not Available [facility] 04/30/20 05:10:33 pneumococcal polysaccharide PPV23 09/26/2018 completed Not Available [facility] 2022 05:10:34 pneumococcal polysaccharide PPV23 04/06/1996 completed Not Available [facility] 2022 05:10:34 influenza, unspecified formulation 03/04/2020 completed Not Available [facility] 04/30/2023 05:10:34 Influenza, high-dose, quadrivalent, PF 03/05/2023 completed Not Available [facility] 07/02/2023 05:30:45 COVID-19, mRNA, LNP-S, PF, arthur-sucrose, 30 mcg/0.3 mL 03/25/2023 completed Not Available [facility] 07/02/2023 05:30:45 Past Encounters Encounter ID Performer Location Encounter Start Date Encounter Closed Date Diagnosis/Indication Diagnosis SNOMED-CT Code [id number] ELBA JETT MD [address] [place] [address] 12/06/2023 08:09:33 12/06/2023 09:15:34 Neuropathy [id number] Goals Section Goal Description Status Start Date LastModified by Organization Details LastModified Time Pt's A1C will improve. None Recorded Goal not achieved 08/12/19 LEISA SEGOVIA Information not available 08/12/2023 12:57:51 Pt will utilize CGM and alarms to alert her to highs and lows None Recorded Goal not achieved 08/12/19 LEISA SEGOVIA Information not available 08/12/2023 13:01:08 Health Concerns Section Related Observation LastModified by Organization Detai ls LastModified Time None Recorded Concern Status LastModified by Organization Details LastModified Time None Recorded Payers Encounter Date Sequence Insurance Name Policy Number Policy Acharya Covered Member ID Acharya Member ID Guarantor Name 12/06/2023 1 [facility] (MEDICARE REPLACEMENT/A DVANTAGE - PPO) [id number] Joanna Hart [id number] Joanna Hart Notes Date Note Type Note Provider Name and Address Organization Details Recorded Time 12/06/2023 text/html HPI Notes: Cristino martinez presents for hospital f/u. She was admitted to [facility] from 11/27-11/29/23 for stroke rule out. 30 minutes prior to arrival to the emergency department she was sitting watching TV when she experienced a sudden severe posterior headache that lasted a couple of seconds, followed by numbness from her knees down and intermittent episodes of dizziness that come on on triggered and resolve spontaneously. She had 5 episodes of dizziness. The dizziness and ISAACS rapidly resolved, continued to have numbness to her lower legs. She did have CT imaging that did not show any acute event. She underwent a teleneuro consult with recommendations for adding aspirin to her Eliquis. There were also recommendations for MRI but unfortunately due to her AICD they were unable to perform MRI. She told the hospitalist her symptoms had resolved and she was discharged home after exam showed sensation, equal strength and movement. She reports today that the sensation abnormalities never resolved. She did not start the aspirin because her salt miner told her not to. She has a history of GI bleed from aspirin. She continues to endorse decreased sensation to both legs, but right more than left is affected. No difficulty walking or new areas of weakness. Denies alterations of sensation in her hands. Seeing neuro next week. Continues in cardiac therapy and is starting PT. Has not yet taken her morning medications. ELBA JETT MD [address], [place], [address], [facility]. 12/06/2023 11:09:04 OBGyn Episode No OBEpisode recorded.
--- OUTSIDE RECORDS SUMMARY | 2024-01-07 11:10 | XMS_ITS | Encounter Summary ---
Author Organization [facility] Address [address] [place] [address] Care Team Providers Care Administrative Judge Name Role Phone Carlos Ha CRM SPECIALIST Unavailable [phone] Elba Jett MD Primary Care Provider [phone] Encounter Details Date Type Department Care Team (Late st Contact Info) Description 06/03/2023 12:15 EST Phlebotomy Only [facility] - Outpatient Phlebotomy Drawing [address] [place] [address] Lab, [facility] Op Phlebotomy Chronic heart failure with preserved ejection fraction (HCC-CMS) Social History Tobacco Use Types Packs/Day Years [...] Info) Description 03/08/2024 9:30 EDT Ancillary Procedure [facility] - [facility] [address] [place] [address] 03/08/2024 10:15 EDT Ancillary Procedure [facility] Cardiology - [facility] [address] [place] [address] 04/05/2024 10:00 EDT Ancillary Procedure [facility] [address] [place] [address] [phone] 04/05/2024 10:00 EDT Office Visit [facility] [address] [place] [address] [phone] Carlos Ha NP [address] [place] [address]A [address] [place] [phone] documented as of this encounter Procedures Procedure Name Priority Date/Time Associated Diagnosis Comments NT PRO BNP Routine 06/03/2023 12:20 EST Chronic heart failure with preserved ejection fraction (HCC-CMS) COMPREHENSIVE METABOLIC PANEL (CMP) Routine 06/03/2023 12:20 EST Chronic heart failure with preserved ejection fraction (HCC-CMS) documented in this encounter Results * (ABNORMAL) COMPREHENSIVE METABOLIC PANEL (CMP) (06/03/2023 12:20 EST) Sodium 138 136 - 145 mmol/L 06/03/2023 13:01 EST [facility] Potassium 4.8 3.5 - 5.0 mmol/L 06/03/2023 13:01 [facility] Chloride 104 96 - 110 mmol/L 06/03/2023 13:01 [facility] CO2 Total 26 22 - 32 mmol/L 06/03/2023 13:01 [facility] Glucose 314(H) 70 - 99 mg/dl 06/03/2023 13:01 [facility] BUN 18 10 - 26 mg/dL 06/03/2023 13:01 [facility] Creatinine 0.86 0.52 - 1.04 mg/dL 06/03/2023 13:01 [facility] eGFR 72 >60 mL/min/1.7 3m2 06/03/2023 13:01 [facility] Total Protein 6.7 6.3 - 8.2 g/dL 06/03/2023 13:01 [facility] Albumin 3.9 3.4 - 4.9 g/dL 06/03/2023 13:01 [facility] Alkaline Phosphatase 67 38 - 126 U/L 06/03/2023 13:01 [facility] AST 24 15 - 46 U/L 06/03/2023 13:01 [facility] ALT 17 <35 U/L 06/03/2023 13:01 [facility] Bilirubin, Total 0.7 <1.4 mg/dL 06/03/20 13:01 [facility] Calcium 10.6(H) 8.5 - 10.5 mg/dL 06/03/2023 13:01 [facility] Albumin/Globulin Ratio 1.4 1.0 - 2.5 g/dL 06/03/2023 13:01 [facility] Anion Gap 8 5 - 14 mmol/L 06/03/2023 13:01 [facility] Blood VENOUS BLOOD / Unknown Venipuncture / Unknown 06/03/2023 12:20 EST 06/03/2023 12:36 EST Carlos Ha CRM SPECIALIST CHEMISTRY & BLOOD GA S ORDERABLES [facility] [address] [place] [address] * (ABNORMAL) NT PRO BNP (06/03/2023 12:20 EST) NT-pro BNP 1,740(H) <221 pg/mL 06/03/2023 13:11 EST [facility] Comment: In the acute setting NT-proBNP values <300 pg/mL have a 98% NPV for excluding acute heart failure. In outpatient populations, NT-proBNP values <125 have a 99% NPV for excluding heart failure. Blood VENOUS BLOOD / Unknown Venipuncture / Unknown 06/03/2023 12:20 EST 06/03/2023 12:36 EST Carlos Ha NP CHEMISTRY & BLOOD GA S ORDERABLES [facility] [address] [place] [address] documented in this encounter Visit Diagnoses Diagnosis Chronic heart failure with preserved ejection fraction (HCC-CMS) documented in this encounter Care Teams Administrative Judge Relationship Specialty Start Date End Date Elba Jett MD [address] [place] [place] [phone] PCP - General Family Medicine - Primary Care 05/18/23 Carlos Ha NP [address] [place] [address] [facility] [address] [place] [address] Consulting Clinician Cardiovascular Disease 09/14/21 documented as of this encounter
--- OUTSIDE RECORDS SUMMARY | 2024-01-07 11:10 | XMS_ITS | Continuity of Care Document ---
Author Organization [facility] Address [address] [place] [address] Care Team Providers Care Link Fabric Machine Operator Name Role Phone Bryant Crain Primary Care Physician [phone] Encounter NCTY_KS Date(s): 12/16/22 - 12/16/22 [facility] [address] [place] [address] Patient Care team information Care Team Personnel Name: Bryant Crain MD Position: No Access Member Role: Primary Care Physician Address: Address: [address] [place] [phone]
--- OUTSIDE RECORDS SUMMARY | 2024-01-07 11:11 | XMS_ITS | Encounter Summary ---
Author Organization [facility] Address [address] [place] [address] Care Team Providers Care Insurance Legal Assistant Name Role Phone Bryant Crain MD Primary Care Provider [phone] Carlos Ha CREMATORY OPERATOR Unavailable [phone] Encounter Details Date Type Department Care Team (Late st Contact Info) Description 01/27/2023 16:50 EDT Phlebotomy Only [facility] - Outpatient Phlebotomy Drawing [address] [place] [address] Lab, [facility] Phlebotomy (HFpEF) heart failure with preserved ejection fraction (HCC-CMS); Hypertrophic cardiomyopathy (HCC-CMS); Iron deficiency anemia Social History Tobacco Use Types Packs/Day Years [...] deaf or do you have serious difficulty hearing? No 12/03/2022 Are you blind or do you have serious difficulty seeing, even when wearing glasses? No 12/03/2022 Do you have serious difficul ty walking or climbing stairs? (5 years old or older) No 12/03/2022 Do you have difficulty dress ing or bathing? (5 years old or older) No 12/03/2022 Because of a physical, menta l, or emotional condition, do you have difficulty doing errands alone such as visiting a doctor's office or shopping? 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 12/03/2022 Cognitive Status Response Date of Assessm ent Because of a physical, menta l, or emotional condition, do you have serious difficulty concentrating, remembering, or making decisions? (5 years old or older) No 12/03/2022 documented as of this encounter Plan of Treatment Upcoming Encounters Date Type Department Care Team (Late st Contact Info) Description 03/08/2024 9:30 EDT Ancillary Procedure [facility] Cardiology - [place] [address] [place], [place] [phone] 03/08/2024 10:15 EDT Ancillary Procedure [facility] Cardiology [place] [address] [place] [address] 04/05/2024 10:00 EDT Ancillary Procedure [facility] [address] [place] [phone] 04/05/2024 10:00 EDT Office Visit [facility] [address] [place] [phone] Carlos Ha, RAHEEM [address] [place] [address] [place] [address] documented as of this encounter Procedures Procedure Name Priority Date/Time Associated Diagnosis Comments TRANSFERRIN SATURATION Routine 01/27/2023 16:59 EDT Iron deficiency anemia PROFILE IRON STUDIES (INCLUDES IRON, IBC, AND FERRITIN) Routine 01/27/2023 16:59 EDT Iron deficiency anemia COMPLETE BLOOD COUNT Routine 01/27/2023 16:59 EDT Iron deficiency anemia NT PRO BNP Routine 01/27/2023 16:59 EDT (HFpEF) heart failure with preserved ejection fraction (HCC-CMS) Hypertrophic cardiomyopathy (HCC-CMS) FERRITIN Routine 01/27/2023 16:59 EDT Iron deficiency anemia BASIC METABOLIC PANEL (BMP) Routine 01/27/2023 16:59 EDT (HFpEF) heart failure with preserved ejection fraction (HCC-CMS) Hypertrophic cardiomyopathy (HCC-CMS) documented in this encounter Results * FERRITIN (01/27/2023 16:59 EDT) Ferritin 147 11 - 264 ng/mL 01/27/2023 18:19 EDT [facility] Blood VENOUS BLOOD / Unknown Venipuncture / Unknown 01/27/2023 16:59 EDT 01/27/2023 17:09 EDT Narrative [facility] - 01/27/2023 18:19 EDT The results of this assay can be falsely lowered due to the consumption of Biotin. Randy Sebastian MD CHEMISTRY & BLOOD GA S ORDERABLES Performing Organization Address City/[facility]/ZIP Co de Phone Number [facility] [address] [place] [address] * (ABNORMAL) TRANSFERRIN SATURATION (01/27/2023 16:59 EDT) Iron 52 37 - 170 ??g/dL 01/27/2023 17:48 EDT [facility] Iron Binding Capacity 365 240 - 450 ??g/dL 01/27/2023 17:48 EDT [facility] Transferrin Saturation 14(L) 15 - 45 % 01/27/2023 17:48 EDT [facility] Blood VENOUS BLOOD / Unknown Venipuncture / Unknown 01/27/2023 16:59 EDT 01/27/2023 17:09 EDT Randy Sebastian MD CHEMISTRY & BLOOD GA S ORDERABLES Performing Organization Address City/[facility]/ZIP Co de Phone Number [facility] [address] [phone] * (ABNORMAL) COMPLETE BLOOD COUNT (01/27/2023 16:59 EDT) WBC 7.97 4.00 - 12.40 K/cmm 01/27/2023 17:09 [facility] RBC 4.49 3.86 - 5.04 M/cmm 01/27/2023 17:09 [facility] Hemoglobin 10.5(L) 11.6 - 15.2 g/dL 01/27/2023 17:09 [facility] HCT 36.1 34.9 - 44.4 % 01/27/2023 17:09 [facility] MCV 80(L) 81 - 98 fL 01/27/2023 17:09 [facility] MCH 23.4(L) 26.7 - 33.3 pg 01/27/2023 17:09 [facility] Hypochromia 1+ 01/27/2023 17:09 [facility] MCHC 29.1(L) 32.1 - 35.9 g/dL 01/27/2023 17:09 [facility] RDW-CV 23.9(H) <14.7 % 01/27/2023 17:09 [facility] RDW-SD 68.2(H) <50.4 fl 01/27/2023 17:09 [facility] Anisocytosis 2+ 01/27/2023 17:09 [facility] PLT 419(H) 141 - 377 K/cmm 01/27/2023 17:09 [facility] MPV 10.3 9.5 - 12.7 fL 01/27/2023 17:09 [facility] Blood VENOUS BLOOD / Unknown Venipuncture / Unknown 01/27/2023 16:59 EDT 01/27/2023 17:05 EDT Randy Sebatsian MD HEMATOLOGY & PF4 ORD ERABLES [facility] [address] [place] [address] * (ABNORMAL) BASIC METABOLIC PANEL (BMP) (01/27/2023 16:59 EDT) [facility] Sodium 138 136 - 145 mmol/L 01/27/2023 17:39 [facility] Potassium 4.6 3.5 - 5.0 mmol/L 01/27/2023 17:39 [facility] Chloride 106 96 - 110 mmol/L 01/27/2023 17:39 [facility] CO2 Total 22 22 - 32 mmol/L 01/27/2023 17:39 [facility] Anion Gap 10 5 - 14 mmol/L 01/27/2023 17:39 [facility] Glucose 222(H) 70 - 99 mg/dl 01/27/2023 17:39 [facility] Calcium 10.8(H) 8.5 - 10.5 mg/dL 01/27/2023 17:39 [facility] BUN 22 10 - 26 mg/dL 01/27/2023 17:39 [facility] Creatinine 1.11(H) 0.52 - 1.04 mg/dL 01/27/2023 17:39 [facility] eGFR 53(L) >60 mL/min/1.73 m2 01/27/2023 17:39 [facility] Blood VENOUS BLOOD / Unknown Venipuncture / Unknown 01/27/2023 16:59 EDT 01/27/2023 17:09 EDT Randy Sebastian MD CHEMISTRY & BLOOD GA S ORDERABLES Performing Organization Address City/[facility]/ZIP Co de Phone Number [facility] [address] [place] [address] * (ABNORMAL) NT PRO BNP (01/27/2023 16:59 EDT) Pathologist [facility] NT-pro BNP 1,360(H) <221 pg/mL 01/27/2023 17:53 [facility] Comment: In the acute setting NT-proBNP values <300 pg/mL have a 98% NPV for excluding acute heart failure. In outpatient populations, NT-proBNP values <125 have a 99% NPV for excluding heart failure. Blood VENOUS BLOOD / Unknown Venipuncture / Unknown 01/27/2023 16:59 EDT 01/27/2023 17:09 EDT Randy Sebastian MD CHEMISTRY & BLOOD GA S ORDERABLES [facility] [address] [place] [address] documented in this encounter Visit Diagnoses Diagnosis (HFpEF) heart failure with preserved ejection fraction (HCC-CMS) Heart failure, unspecified Hypertrophic cardiomyopathy (HCC-CMS) Other hypertrophic cardiomyopathy Iron deficiency anemia Iron deficiency anemia, unspecified documented in this encounter Care Teams Insurance Legal Assistant Relationship Specialty Start Date End Date Bryant Crain MD [address] [place], [place] [phone] PCP - General 05/04/15 05/17/23 Carlos Ha NP [address] [facility] [address] [place] [phone] Consulting Clinician Cardiovascular Disease 09/14/21 documented as of this encounter
--- OUTSIDE RECORDS SUMMARY | 2024-01-07 11:11 | XMS_ITS | Encounter Summary ---
Author Organization [facility] Address [address] [place] [address] Care Team Providers Care Registered Dietician Name Role Phone Bryant Crain MD Primary Care Provider [phone] Carlos Ha ANESTHESIOLOGY MEDICAL DOCTOR Unavailable [phone] Reason for Visit * Reason Onset Date Comments Appointment Related 03/17/2023 Encounter Details Date Type Department Care Team (Late st Contact Info) Description 03/17/2023 Telephone [facility] [address] [place] [address] Carlos Ha, ANESTHESIOLOGY MEDICAL DOCTOR 130 [facility] [place] [address] Appointment Related Social History Tobacco [...] * Telephone Encounter - Nestor Espinosa - 03/22/2023 1416 EDT Called and spoke with pt. She has OV with PCP, Dr. Crain, on 03/25/23 and he is to check the incision site. * Telephone Encounter - Sabrina Herring MA - 03/17/2023 1606 EDT Patient had an ICD placed on 03/15 at [facility], she needs to be scheduled for a wound check within 7-10days. Call placed to patient, no answer left VM requesting call back. Patient can either come here for wound check or if it's easier to be seen by her PCP as it's closer to her she can do that. documented in this encounter Plan of Treatment Upcoming Encounters Date Type Department Care Team (Late st Contact Info) Description 03/08/2024 9:30 EDT Ancillary Procedure [facility] [place] [address] 03/08/2024 10:15 EDT Ancillary Procedure [facility] [place] [address] 04/05/2024 10:00 EDT Ancillary Procedure [facility] [address] [place] [address] 04/05/2024 10:00 EDT Office Visit [facility] [address] [place] [address] Carlos Ha NP [address] [phone] documented as of this encounter Visit Diagnoses Not on filedocumented in this encounter Care Teams Registered Dietician Relationship Specialty Start Date End Date Bryant Crain MD [address] [place], [place] [phone] PCP - General 05/04/15 05/17/23 Carlos Ha NP [address] [phone] Consulting Clinician Cardiovascular Disease 09/14/21 documented as of this encounter
--- OUTSIDE RECORDS SUMMARY | 2024-01-07 11:11 | XMS_ITS | Encounter Summary ---
Author Organization [facility] Address [address] [place] [address] Care Team Providers Care Shop Technician Name Role Phone Carlos Ha EXHIBITIONS CURATOR Unavailable [phone] Elba Jett MD Primary Care Provider [phone] Reason for Referral * Cardiology (Routine/Next Available) - New Request Specialty Diagnoses / Procedures Referred By Contac t Referred To Contact Diagnoses Hypertrophic cardiomyopathy ([facility]-CMS) Procedures TRANSTHORACIC ECHO (TTE) COMPLETE TX ECHO HEART XTHORACIC,COMPLETE W DOPPLER Randy Sebastian MD [address] [place] [phone] [facility] Referral ID Status Reason Start Date Expiration Date V isits Requested Visits Authorized [id number] New Request 05/18/2023 1 1 * Consult (Routine/Next Available) - Authorization Not Required Specialty Diagnoses / Procedures Referred By Contac t Referred To Contact Diagnoses Hypertrophic cardiomyopathy ([facility]-CMS) Randy Sebastian MD [address] [place] [phone] Referral ID Status Reason Start Date Expiration Date Visits Requested Visits Authorized [id number] Authorization Not Required Specialty Services Required 05/18/20 23 1 1 Question Answer Reason for Request: post [place] PCI Reason for Visit * Reason Comments Congestive Heart Failure HfPEF (heart fa ilure with preserved ejection fraction) Encounter Details Date Type Department Care Team (Latest Contact Info) Description 05/18/2023 14:00 EST Office Visit [facility] Cardiology - [address] [place] [address] Randy Sebastian MD [address] [place] [phone] Hypertrophic cardiomyopathy (HCC-CMS) (Primary Dx) Social History Tobacco Use Types [...] Sign Reading Time Taken Comments Blood Pressure 152/94 05/18/2023 1344 EST Pulse 87 05/18/2023 1344 EST Temperature - - Respiratory Rate - - Oxygen Saturation 98% 05/18/2023 1344 EST Inhaled Oxygen Concentration - - Weight 70.8 kg (156 lb) 05/18/2023 1344 EST Height - - Body Mass Index 26.78 03/31/2023 1431 EDT documented in this encounter Functional Status [...] No 03/15/2023 documented as of this encounter Ordered Prescriptions Prescription Sig Dispensed Refills Start Date End Da te metoprolol SUCCinate (TOPROL-XL) 25 mg tablet Take 1 Tablet by mouth daily. 30 Tablet 11 05/18/2023 documented in this encounter Progress Notes * Randy Sebastian MD - 05/18/2023 1400 EST [facility] Division of Cardiology- Advanced Heart Failure and Transplant Cardiology Dear Elba Jett We had the pleasure of seeing Joanna Hart at the [facility] Advanced Heart Failure Office today for follow-up evaluation for HFpEF the setting of hypertrophic cardiomyopathy, type 2 diabetes, NSVT and A-fib, AMI status post PCI mid 2022. As you know, Joanna Hart is a 72 y.o. female who I have been following with my colleague, Ms. Carlos Ha at [facility], for the above-mentioned conditions. Most recent follow-up 02/10 when we discussed ICD implant given high risk findings on imaging as well as event monitors of NSVT. Underwent successful BiV ICD and recovering well. Unfortunately has been struggling with medical therapy for HFpEF and post PCI care with antiplatelet, had multiple side effects most notably for bad rash. Change it multiple medications. Losartan, Jardiance, Plavix and finally thought to be related to Plavix. Currently maintained on antithrombotic therapy only with Eliquis 5 twice daily despite being about 5 months post PCI but risks and benefitswere discussed multiple times. Overall, no chest pain, shortness of breath, no lower extremity edema. Does have fair amount of exhaustion with mild activities and overall deconditioning. Did not go for cardiac rehab since her PCI mid 2022. She has been compliant with her medications. Medications side effects include none Assessment and Plan Joanna Hart is a 72 y.o. year old female who presents for evaluation of HFpEF, hypertrophic cardiomyopathy, AMI status post PCI, A-fib, NSVT, type 2 diabetes. ACC stage C, NYHA class III. Mostly nonischemic etiology. LVEF normal as below. Euvolemic and optimized on today's exam. Maintained on metoprolol tartrate 12.5 mg once daily and 12.5 mg of spironolactone. Losartan and Jardiance were held. Recommend -Switch metoprolol to succinate, 25 mg daily. For now increase tartrate to 12.5 twice daily. Until she gets the prescription from online pharmacy. -Resume losartan and watch for recurrence of rash. If no recurrence, repeat blood work in 2-4 weeksto recheck kidney functions and potassium. If stable and blood pressure still acceptable, discussedwith Ms. Ha in Follow-up and increase Aldactone to 25 mg daily at the next. From the arrhythmia standpoint had a repeat device interrogation today in the office, had a mild episode of lightheadedness and device was interrogated and at outside hospital just a few days ago andwas told [no significant findings]. Today again device interrogated and revealed rare PVCs, no significant atrial or ventricular arrhythmias. BiV pacing acceptable with QRS 130 on EKG. Refer to cardiac rehab Echo and FU in 8-9 months Randy Sebastian MD Advanced HF and Transplant Extractor Pull[employer] [facility] 05/18/2023 14:03 Medications Prior to Today's Visit Medication Sig ??? acetaminophen (TYLENOL) 650 mg CR tablet 2 tab(s) orally twice a day, only as needed ??? apixaban (ELIQUIS) 5 mg tablet Take 1 Tablet by mouth 2 times daily. ??? BD ULTRA-FINE MICRO PEN NEEDLE 32 gauge x 1/4 needle ??? blood glucose meter by [facility] (non-drug; combo route) route daily. One touch verio meter or best covered by insurance. ??? cetirizine (ZYRTEC) 10 mg tablet Take 1 Tablet by mouth daily. ??? Cholecalciferol, Vitamin D3, 10 mcg (400 unit) tablet Take 1 Tablet by mouth daily. ??? clopidogreL (PLAVIX) 75 mg tablet Take 1 Tablet by mouth daily. (Patient not taking: Reported on 05/06/2023) ??? cyanocobalamin (VITAMIN B-12) 500 mcg tablet Take 1 Tablet by mouth daily. ??? empagliflozin (JARDIANCE) 10 mg tablet Take 1 Tablet by mouth daily. (Patient not taking: Reported on 03/31/2023) ??? flash glucose scanning reader (FREEL[employer]isville Solutions IncorporatedYLE VICKY 2 READER) misc 1 Device by misc (non-drug; comboroute) route daily. Dispense one reader ??? FREESTYLE VICKY 2 SENSOR kit USE 1 SENSOR EVERY 14 DAYS ??? gabapentin (NEURONTIN) 300 mg capsule Take 2 Capsules by mouth 2 times daily. ??? HUMALOG KWIKPEN INSULIN 100 unit/mL injectable pen 100-150 1 unit, 150-200 2 units, 200-250 3 units, 250-300 4 units ??? insulin glargine (LANTUS SOLOSTAR U-100 INSULIN) 100 unit/mL (3 mL) injection pen Inject 31 Units into the skin daily. ??? lactobacillus combination no.8 3 billion cell capsule Take 1 Capsule by mouth daily. ??? lancets/blood glucose strips (ONE TOUCH COMBO [facility]) -to test blood sugar - twice daily ??? losartan (COZAAR) 25 mg tablet Take 1 Tablet by mouth at bedtime. (Patient not taking: Reportedon 05/06/2023) ??? magnesium oxide (MAG-OX) 400 mg (241.3 mg magnesium) tablet Take 1 Tablet by mouth daily. ??? metFORMIN (GLUCOPHAGE-XR) 750 mg ER tablet Take 1 Tablet by mouth 2 times daily. ??? metoprolol TARtrate (LOPRESSOR) 25 mg tablet Take 0.5 Tablets by mouth daily. ??? ONETOUCH ULTRA BLUE TEST STRIP test strips TEST BLOOD GLUCOSE THREE TIMES DAILY ??? OZEMPIC 1 mg/dose (4 mg/3 mL) pen injector Inject 1 mg into the skin once a week. Sundays ??? pantoprazole (PROTONIX) 40 mg tablet Take 1 Tablet by mouth 2 times daily. ??? REPATHA SYRINGE 140 mg/mL syringe INJECT 1 SYRINGE SUBCUTANEOUSLY EVERY 2 WEEKS ??? spironolactone (ALDACTONE) 25 mg tablet Take 0.5 Tablets by mouth daily. ??? [facility] No facility-administered medications prior to visit. BP (!) 152/94 (BP Cuff Location: Right arm, BP Patient Position: Sitting, BP Cuff Sizes: Adult, regular) Pulse 87 Wt 70.8 kg (156 lb) SpO2 98% BMI 26.78 kg/m?? Body mass index is 26.78 kg/m??. Physical Exam: General appearance: alert, cooperative, NAD Skin: Skin color, temperature, turgor normal. No rashes or lesions Head: Normocephalic, without obvious abnormality, atraumatic Eyes: conjunctivae/corneas clear Nose: Nares normal. Septum midline. Throat/Mouth: moist mucus membranes Neck: supple, symmetrical, trachea midline Lungs: CTAB Heart: RRR, normal S1/S2, no m/r/g Abdomen: soft Back: symmetric. Neurologic: Grossly normal Extremities: no c/c/e Data: I reviewed the ECG obtained today My personal interpretation of the ECG Findings:BiV paced, QRS 130 ms. Lab Review: Potassium 4.2 Creatinine 1.1 NT proBNP 1079 Discussed those results with the patient I reviewed prior notes I spent a total of 40 minutes on the date of this encounter meeting with the patient and reviewing documentation (prior notes, ECG, echocardiographic images, /discussing potential procedure /coordinating care as described in the above note. Randy Sebastian MD 05/18/2023,14:03 documented in this encounter Plan of Treatment Upcoming Encounters Date Type Department Care Team (Late st Contact Info) Description 03/08/2024 9:30 EDT Ancillary Procedure [facility] Cardiology - [place] [address] [place] [address] 03/08/2024 10:15 EDT Ancillary Procedure [facility] Cardiology - [facility] [place] [address] 04/05/2024 10:00 EDT Ancillary Procedure [facility] [address] [place] [phone] 04/05/2024 10:00 EDT Office Visit [facility] [address] [place] [phone] Carlos Ha NP [address] [place] [address] [address] [place] [address] Scheduled Orders Name Type Priority Associated Diagnoses Orde r Schedule TRANSTHORACIC ECHO (TTE) COMPLETE Echocardiography Routine Hypertrophic cardiomyopathy (HCC-CMS) Expected: 05/18/2023, Expires: 05/18/2025 Scheduled Referrals Name Type Priority Associated Diagnoses Orde r Schedule AMB CONS/FOLLOW UP CARDIAC REHABILITATION Outpatient Referral Routine/Next Available Hypertrophic cardiomyopathy (HCC-CMS) Expected: 05/25/2023 (Approximate), Expires: 05/18/2024 documented as of this encounter Procedures Procedure Name Priority Date/Time Associated Diagnosis Comments ECG REPORT - SCANNED 05/20/2023 14:54 EST EKG 12-LEAD Routine 05/18/2023 14:16 EST Hypertrophic cardiomyopathy (HCC-CMS) documented in this encounter Results * ECG REPORT - SCANNED (05/20/2023 14:54 EST) 05/20/2023 14:5 4 EST Scan 2 Rim Roller Setter PROCEDURE/MINOR CROW GICAL ORDERABLES * EKG 12-LEAD (05/18/2023 14:16 EST) 05/18/2023 14:1 6 EST Narrative [facility] E[facility] - 05/20/2023 14:47 EST ? [facility] ? Test Date: ?2023-05-18 Pat Name: ? JOANNA GAUTAM ?Department: ?? [place] [facility] ? Room: ? Gender: ? Female ? Montessori Paraprofessional: ?? [id number] : ?1950 ? Requested By: ASIA Ovalles Order Number: [id number] ? Reading : ?? REILLY GOMES SA, MD ? Measurements Intervals ?[place] ? Rate: ? 81 ? P: ?53 TX: ? 164 ?QRS: ?41 QRSD: ? 130 ?T: ?208 QT: ? 424 ? QTc: ?493 ? Interpretive Statements ELECTRONIC VENTRICULAR PACEMAKER ABNORMAL RHYTHM ECG Automated Interpretation. ??Provider Interpretation to follow. Compared to ECG 03/15/2023 12:28:14 Atrial-paced complex(es) or rhythm no longer present I reviewed the tracing and have either agreed or edited the findings in this report. Electronically Signed On 05-20-2023 14:47:28 EST by REILLY GOMES SA, MD. Procedure Note Reilly Silverio Sa, MD - 05/20/2023 [facility] Test Date: 2023-05-18 Pat Name: JOANNA HART Department: [place] [facility] Room: Gender: Female Montessori Paraprofessional: [id number] : 1950 Requested By: ASIA Ovalles Order Number: [id number] Reading MD: REILLY CALDWELL Measurements Intervals [place] Rate: 81 P: 53 TX: 164 QRS: 41 QRSD: 130 T: 208 QT: 424 QTc: 493 Interpretive Statements ELECTRONIC VENTRICULAR PACEMAKER ABNORMAL RHYTHM ECG Automated Interpretation. Provider Interpretation to follow. Compared to ECG 03/15/2023 12:28:14 Atrial-paced complex(es) or rhythm no longer present I reviewed the tracing and have either agreed or edited the findings inthis report. Electronically Signed On 05-20-2023 14:47:28 EST by REILLY VERAS SA, MD. Randy Sebastian MD CARDIAC ECG ORDERABL ES [facility] EKG documented in this encounter Visit Diagnoses Diagnosis Hypertrophic cardiomyopathy (HCC-CMS)- Primary Other hypertrophic cardiomyopathy documented in this encounter Discontinued Medications Medication Sig Discontinue Reason Start Date End Da te metoprolol TARtrate (LOPRESSOR) 25 mg tablet Take 0.5 Tablets by mouth daily. Therapy completed 12/09/2022 05/18/2023 documented as of this encounter Care Teams Shop Technician Relationship Specialty Start Date End Date Elba Jett MD [address] [place] [phone] PCP - General Family Medicine - Primary Care 05/18/23 Carlos Ha NP [address] [place] [address] [place] [phone] Consulting Clinician Cardiovascular Disease 09/14/21 documented as of this encounter
--- OUTSIDE RECORDS SUMMARY | 2024-01-07 11:11 | XMS_ITS | Encounter Summary ---
Author Organization [facility] Address [address] [place] [address] Care Team Providers Care Sports Media Name Role Phone Bryant Crain MD Primary Care Provider [phone] Carlos Ha KNITTING INSPECTOR Unavailable [phone] Reason for Visit * Auth/Cert (Routine) Specialty Diagnoses / Procedures [facility]erred To Contact Diagnoses Hypertrophic cardiomyopathy (HCC-CMS) PAF (paroxysmal atrial fibrillation) (HCC-CMS) Hypertrophic cardiomyopathy (HCC-CMS) (HCC) [I42.2] PAF (paroxysmal atrial fibrillation) (HCC-CMS) (HCC) [I48.0] Procedures NE INSJ/RPLCMT PERM DFB W/TRNSVNS LDS 1/DUAL CHMBR ICD New System Dual Lefty Moss MD [address] [place] [id number] Referral ID Status Reason Start Date Expiration Date Visits Re quested Visits Authorized [id number] 02/16/2023 1 1 Encounter Details Date Type Department Care Team (Late st Contact Info) Description 03/15/2023 6:20 EDT - 03/16/2023 12:30 EDT Hospital Encounter [facility] Cardiac Unit [address] [place], [place] [address] Lefty Moss MD [address] [place] [address], [place] [address] Hudson Smith MD [address] [phone] Miriam Capps MD [address] [phone] Hypertrophic cardiomyopathy (HCC-CMS); PAF (paroxysmal atrial fibrillation) ([facility]-CMS) Discharge Disposition: Home or Self Care Social History Tobacco Use Types Packs/Day Years [...] Sign Reading Time Taken Comments Blood Pressure 137/57 03/16/2023 0844 EDT Pulse - - Temperature 36.6 ??C (97.9 ??F) 03/16/2023 0844 EDT Respiratory Rate 16 03/16/2023 0844 EDT Oxygen Saturation 85% 03/16/2023 0844 EDT Inhaled Oxygen Concentration - - Weight 69.4 kg (153 lb) 03/15/2023 1200 EDT Height 162.6 cm (5' 4) 03/15/2023 1200 EDT Body Mass Index 26.26 03/15/2023 1200 EDT documented in this encounter Functional Status Functional Status Response Date of Assess ment Are you deaf or do you have serious difficulty h earing? No 03/15/2023 Are you blind or do you have serious difficulty seeing, even when wearing glasses? No 03/15/2023 Do you have serious difficul ty walking [...] No 03/15/2023 documented as of this encounter Discharge Summaries * Hudson Smith MD - 03/16/2023 1203 EDT Cardiology Discharge Summary Primary Care Provider: Bryant Crain Attending Physician: Hudson Smith MD Admit Date: 03/15/2023 Discharge Date: 03/16/23 Disposition: Home or self care Problems and Procedures Admitting Diagnosis: hypertrophic cardiomyopathy Final Hospital Diagnosis: Hypertrophic cardiomyopathy Additional Problems Managed in the Hospital Active Hospital Problems Diagnosis Date Noted ??? *PAF (paroxysmal atrial fibrillation) (HCC-CMS) ([facility]) 02/16/2023 ??? Hypertrophic cardiomyopathy (HCC-CMS) ([facility]) Resolved Hospital Problems No resolved problems to display. Principal Procedure: Implantable Cardioverter Defibrillator (ICD) Date: 03/15/2023 Procedure:??Biventricular ICD implant Indication:??heart block, ventricular tachycardia, cardiomyopathy and high risk of sudden cardiac sulfonator operator:??Lefty Moss MD Fellow: No Fellow ?? Brief narrative: RA to RAA RV to bundle of his RV to RV apical septum Device mode: DDD Lower rate: 60 Generator Manufactor: [employer] Contrast:?? 0 cc No immediate complication noted Postprocedure Chest XR and EKG were ordered. Bi-v icd. His lead to non-selective distal his, HV ~ 60 with qrs 120 ( NS caputure) AV lilly wenkebach and 2:1 block at baseline with fatigue/sob on minimal med rx ra to raa Good pace-sense Ice-abx-cxr Secondary Procedures: Not applicable Hospital Course Ms. Joanna Hart is a 72 year old female patient of Dr. Sebastian with hypertrophic cardiomyopathy, intermittent Wenkeback, CAD s/p PCI, history CVA, hypertension, paroxysmal atrial fibrillation, DM2,CKD 3b and primary hyperparathyroidism who presented on 03/15/23 for planned ICD placement. She met with Dr. Moss on 02/16/23 and elected to proceed with primary prevention ICD given hypertrophic cardiomyopathy with high risk features (late LGE on cMRI). Outpatient monitoring also demonstrated NSVT. 03/15/2023 she underwent implant of a BiV ICD (RA to RAA, RV to bundle of his, RV to apical septum, DDD, lower rate 60). Overnight telemetry with atrial and biventricular pacing. The next morning, a device interrogation demonstratednormal function and programming and PA & Lat chest xray showed ap propriate lead placements. Left subclavian incision site is clean, dry and intact. She will resume 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 with eliquis on , 03/18. - Appointment in 2 weeks for an incision site check with Dr. Crain on 03/25/23 - Pacemaker device interrogation in 3 months at [facility] cardiology on 06/18/23 Allergies and Immunizations Allergies Allergen Reactions ??? Cephalexin Anaphylaxis Other reaction(s): Rash ??? Hydroxychloroquine Anaphylaxis ??? Iodinated Contrast Media Other reaction(s): Anaphylaxsis ( TOLERATED WITH PREMEDS 05/05/17) ??? Atenolol Other (See Comments) ??? Ciprofloxacin ??? Farxiga [Dapagliflozin] Gi side effects ??? Iodine And Iodide Containing Products Hives ??? Lisinopril Other reaction(s): Unknown ??? Losartan Other reaction(s): Unknown ??? Oxycodone-Acetaminophen Other reaction(s): Hallucinations ??? Propoxyphene N-Acetaminophen Other reaction(s): Hallucinations ??? Suyudzq-Hvz-Onl Reductase Inhibitors ??? Trulicity [Dulaglutide] Gi Side effect There is no immunization history on file for this patient. Transition of Care Plans Condition at Discharge Improved Assessment at Discharge Vital signs: Patient Vitals for the past 12 hrs: BP Heart Rate Resp Temp SpO2 O2 Device 03/16/23 0844 137/57 66 BPM 16 36.6 ??C (97.9 ??F) (!) 85 % None 03/16/23 0552 (!) 152/93 72 BPM 15 36.6 ??C (97.8 ??F) 99 % None 03/16/23 0105 -- 62 BPM 16 -- -- None Cardiac Studies at Time of Discharge XR CHEST 2 VIEWS 03/16/2023 10:30 AM ?? Clinical History/comments: s/p egg sorter-d, heart block, cardiomyopathy; ?? Comparison: 1 day prior. ?? Technique: Frontal and lateral views of the chest. ?? Findings: ?? Lungs: Normal. Pleura/diaphragms: Normal.XR CHEST 2 VIEWS 03/16/2023 10:30 AM ?? Clinical History/comments: s/p egg sorter-d, heart block, cardiomyopathy; ?? Comparison: 1 day prior. ?? Technique: Frontal and lateral views of the chest. ?? Findings: ?? Lungs: Normal. Pleura/diaphragms: Normal. ?? Cardiac and mediastinal contours: The cardiac silhouette is enlarged. Left-sided battery pack/generator with a lead in the right atrium and 2 leads in the right ventricle, defibrillator lead in the right ventricular apex and a pacer lead aortic oriented towards the intraventricular septum. ?? Soft tissues and extrathoracic findings: Normal. ?? Bones: Normal. ?? IMPRESSION Satisfactory postprocedural chest radiograph. ? Cardiac and mediastinal contours: The cardiac silhouette is enlarged. Left-sided battery pack/generator with a lead in the right atrium and 2 leads in the right ventricle, defibrillator lead in the right ventricular apex and a pacer lead aortic oriented towards the intraventricular septum. ?? Soft tissues and extrathoracic findings: Normal. ?? Bones: Normal. ?? IMPRESSION Satisfactory postprocedural chest radiograph. ?? Results Pending at Discharge Test results still pending from this admission None Last Lab Results at Discharge BUN: Lab Results Component Value Date BUN 22 01/27/2023 Creatinine: Lab Results Component Value Date CREATININE 1.11 (H) 01/27/2023 CBC: Lab Results Component Value Date WBC 7.97 01/27/2023 RBC 4.49 01/27/2023 HGB 10.5 (L) 01/27/2023 HCT 36.1 01/27/2023 MCV 80 (L) 01/27/2023 MCH 23.4 (L) 01/27/2023 MCHC 29.1 (L) 01/27/2023 PLT 419 (H) 01/27/2023 DIFFTYPE Auto 01/05/2023 Electrolytes: Lab Results Component Value Date NA 138 01/27/2023 K 4.6 01/27/2023 CL 106 01/27/2023 CO2 22 01/27/2023 INR: Lab Results Component Value Date INR 1.2 (H) 11/11/2022 PROTIME 13.5 (H) 11/11/2022 Lab Results Component Value Date HGBA1C 7.1 (H) 11/11/2022 Discharge Follow Up Appointments Scheduled with [facility] Upcoming Appointments Mar 31, 2023 14:30 PPM/ICD Device Check - In Clinic with [facility] 1 [facility] (--) [address] [facility] [address] Please bring any insurance information and a copayment if required by your insurance company. Mar 31, 2023 14:30 Office Visit Medium with Carlos Ha NP [facility] (--) [address] [facility] [address] May 18, 2023 14:00 Office Visit with Randy Sebastian MD [facility] Cardiology - [facility] (--) [address] [facility] [place] [address] Kerline Ann PA-C 03/16/2023 12:03 The patient was seen and evaluated on morning rounds with Dr. Smith. documented in this encounter Discharge Instructions * Medications* Kerline Ann PA-C - 03/16/2023 11:16 EDT Please wait to restart your eliquis until morning (03/18) * Discharge Instr - Other Orders* Kerline Ann PA-C - 03/09/2023 13:45 EDT DISCHARGE INSTRUCTIONS FOR PATIENTS WITH AN IMPLANTABLE CARDIOVERTER DEFIBRILLATOR (ICD) Carry your ICD identification card with you at all times. A permanent card will be sent to your home in approximately 6-8 weeks. Appointments: Post Procedure Appointment and Device check: Two week wound check: March 25 at 11:00am Dr. Crain [phone] Device check: June 18 at 1:00pm Device Clinic [facility] Cardiology [phone] Should the above appointment(s) not work, please call the number listed to reschedule a time that works for you. We are here to help, so should you need assistance prior to your procedure, please feel free to call anyone listed below with questions. EP Tourist Camp Attendant - [phone]-if you need to reschedule your procedure [facility] Device Clinic nurse - [phone]~ Zakia Please let me know you have received this information. Wound Care: If Steri Strips were applied: Keep the wound dry for 4 days then you may shower. Take the top bandage off in 24 hours.To dry, gently pat with a soft towel or cloth. Leave the Steri strips in place. They will dry out and fall off on their own in 7-10 days. Avoid Topical Medications. Do not apply liquid or ointment medications, lotions, creams, petroleum jelly, mineral oils or any other product to your wound Do not rub, scratch, or pick at the wound. Doing so may prevent the wound from closing appropriately and cause scarring. Check the wound appearance. Some swelling, redness, and pain are common with all wounds and normally will go away as the wound heals. Contact your doctor immediately if swelling, redness or pain increases; if the wound feels warm to the touch; or if the wound edges reopen or separate. If Skin adhesive was used: Keep the wound dry. You may shower the next day. Do not soak or scrub the wound area. To dry, gently pat with a soft towel or cloth. If bandaged, keep the bandage dry or replace if it should become wet. Avoid Topical Medications. Do not apply liquid or ointment medications, lotions, creams, petroleum jelly, mineral oils or any other product to your wound while adhesive film is in place. Do not rub, scratch, or pick at the wound. Doing so may prevent the wound from closing appropriately and cause scarring. Protect the wound from prolonged sunlight exposure. Do not use tanning lamps while the film is in place. Check the wound appearance. Some swelling, redness, and pain are common with all wounds and normally will go away as the wound heals. Contact your doctor immediately if swelling, redness or pain increases; if the wound feels warm to the touch; or if the wound edges reopen or separate. The Adhesive will naturally shed itself between 5 and 10 days after the procedure. By this time, your wound should be sufficiently healed. Call your physician or nurse if: you develop drainage, increased redness or swelling at the incision site you develop marked tenderness or bruising over incision site and it does not resolve in 2 days you develop a fever Instructions regarding shocks: Call your physician or nurse if your ICD fires (delivers a shock). This may not need to be treated urgently. You may call the following morning if your device fired (delivers a shock) only once during the evening or night and you felt fine afterwards. If at any time your device fires and you feel symptomatic, for example, lightheaded, dizzy, short of breath, palpitations or chest pain contact [phone]. If 2 or more successive shocks occur, call your physician or nurse as soon as possible at or x [phone]. Do not hesitate to call emergency personnel if you feel you need it. Please note the presence/absence of symptoms and activity at the time of each shock. Activity: You can resume your normal activities as tolerated, unless you have been instructed otherwise. No vigorous activity using the arm on the side of the device for 1 month. KEEP YOUR ARM BELOW SHOULDER LEVEL FOR 4 WEEKS AFTER IMPLANT. Avoid rough contact with the generator If you have lost consciousness, driving restrictions may apply. Please ask staff if this applies toyou. Lift no more than 10 pounds the first month with the affected arm. Additional Instructions: Avoid strong magnetic sloan as they may interfere with your ICD. This does NOT include microwaves which are safe to be around. Depending on the system you have some ICD???s are MRI safe. When you travel by air please inform the job putter up and ticket preparer & airport security of your device (ICD). You must be hand searched verses magnetic field. Know your medicines, keep a list with you and take them as prescribed. Family members should learn CPR and are encouraged to become certified if they are capable of doingso. Contact the [employer] for more details. Please tell other physicians and dentists that you have an ICD. The device may need to be turned off temporarily for certain procedures. Instructions for the use of cellular phones: Your cellular phone should be held a minimum of 6 inches away from the ICD. It is recommended to hold the cellular phone on the side opposite of your device. Appointments: Further information will be sent to you regarding your scheduled follow up in 3 months. After the initial check as noted above, your device will be checked in clinic or remotely 4 times /year. Our Outpatient Cardiology Clinic/ [facility] is located at [address] [place] [address] in [place]. These appointments will take approximately 20 minutes and you will be reminded of this date by mail. Clinics are also held in [facility], [facility], [facility], [facility], [facility]/[place],[facility]/ [place] and [facility]/[place]. We will make arrangements for your follow up in a clinic closest to where you live. Remote Monitors: A Remote Monitor will be mailed or given to you and will allow you to send a transmission for some appointments rather than coming into the clinic. This will also allow you to send a transmission in the event your device fires or you do not feel well. It will be reviewed by a physician and you willbe contacted if necessary. PLEASE NOTE: If we have not contacted you or you have missed your scheduled appointment, you must contact us. If you have any nursing questions please don???t hesitate to call the cardiac arrhythmia service [phone] or [phone] [phone] extension [phone]. For scheduling of appointments and related questions, please call [phone] or [phone]. documented in this encounter Medications at Time of Discharge Medication Sig Dispensed Refills Start Date End Date acetaminophen (TYLENOL) 650 mg CR tablet 2 tab(s) orally twice a day, only as needed apixaban (ELIQUIS) 5 mg tablet Take 1 Tablet by mouth 2 times daily. 03/18/2023 BD ULTRA-FINE MICRO PEN NEEDLE 32 gauge x 1/4 needle 06/17/2021 blood glucose meterIndications:Typ e 2 diabetes mellitus with hyperglycemia, with long-term current use of insulin ([facility]) by [facility] (non-drug; combo route) route daily. One touch verio meter or best covered by insurance. 1 Each 10/02/2020 cetirizine (ZYRTEC) 10 mg tablet Take 1 Tablet by mouth daily. Cholecalciferol, Vitamin D3, 10 mcg (400 unit) tablet Take 1 Tablet by mouth daily. cyanocobalamin (VITAMIN B-12) 500 mcg tablet Take 1 Tablet by mouth daily. empagliflozin (JARDIANCE) 10 mg tablet Take 1 Tablet by mouth daily. 30 Tablet 2 12/08/2022 flash glucose scanning reader (FREESTYLE LO 2 READER) [facility] 1 Device by [facility] (non-drug; combo route) route daily. Dispense one reader 1 Each 10/18/2020 FREESTYLE LO 2 SENSOR kit USE 1 SENSOR EVERY 14 DAYS 6 Kit 3 12/29/2021 gabapentin (NEURONTIN) 300 mg capsule Take 2 Capsules by mouth 2 times daily. HUMALOG KWIKPEN INSULIN 100 unit/mL injectable pen 100-150 1 unit, 150-200 2 units, 200-250 3 units, 250-300 4 units 05/31/2020 insulin glargine (LANTUS SOLOSTAR U-100 INSULIN) 100 unit/mL (3 mL) injection pen Inject 31 Units into the skin daily. 07/15/2021 lactobacillus combination no.8 3 billion cell capsule Take 1 Capsule by mouth daily. 01/18/2020 lancets/blood glucose strips (ONE TOUCH COMBO [facility]) -to test blood sugar - twice daily losartan (COZAAR) 25 mg tablet Take 1 Tablet by mouth at bedtime. 90 Tablet 3 12/09/2022 magnesium oxide (MAG-OX) 400 mg (241.3 mg magnesium) tablet Take 1 Tablet by mouth daily. metFORMIN (GLUCOPHAGE-XR) 750 mg ER tablet Take 1 Tablet by mouth 2 times daily. ONETOUCH ULTRA BLUE TEST STRIP test strips TEST BLOOD GLUCOSE THREE TIMES DAILY 06/06/2020 OZEMPIC 1 mg/dose (4 mg/3 mL) pen injector Inject 1 mg into the skin once a week. Sundays02/09/2021 pantoprazole (PROTONIX) 40 mg tablet Take 1 Tablet by mouth 2 times daily. 120 Tablet 11/14/2022 REPATHA SYRINGE 140 mg/mL syringe INJECT 1 SYRINGE SUBCUTANEOUSLY EVERY 2 WEEKS 06/26/2020 spironolactone (ALDACTONE) 25 mg tablet Take 0.5 Tablets by mouth daily. 45 Tablet 3 12/10/2022 UNIFINE PENTIPS 04/19/2019 clopidogreL (PLAVIX) 75 mg tablet Take 1 Tablet by mouth daily. 90 Tablet 3 12/10/2022 06/03/2023 metoprolol TARtrate (LOPRESSOR) 25 mg tablet Take 0.5 Tablets by mouth daily. 12/09/2022 05/18/2023 documented as of this encounter Ordered Prescriptions Prescription Sig Dispensed Refills Start Date End Da te apixaban (ELIQUIS) 5 mg tablet Take 1 Tablet by mouth 2 times daily. 03/18/2023 documented in this encounter Discharge Disposition Disposition Code Departure Means Destination Comment s Home or Self Penitentiary documented in this encounter Progress Notes * Kerline Ann PA-C - 03/15/2023 1150 EDT EP Cardiology Post Procedure Check: S: Ms. Hart denies chest pain, palpitations, or shortness of breath. No complaints of pain or bleeding at access site. O: Blood pressure (!) 156/85, temperature 36.7 ??C (98.1 ??F), temperature source Oral, resp. rate 18, SpO2 95 %. General: Awake and alert. No acute distress Extremities: Warm, well-perfused Access site: Dressing is clean, dry, intact. No ecchymosis or hematoma A/P: Joanna Hart is a 72 y.o. female with an appropriate post procedure course. -Continue current management -Post procedure x-ray -Hold OUTPATIENT PHLEBOTOMIST eliquis 48 hours post procedure Kerline Ann PA-C 03/15/2023 11:50 * Zakia Dixon RN - 03/08/2023 1003 EDT Images from the original note were not included. [address] [facility] [place] [address] 03/08-I spoke with pt and her regarding below, they verbalized understanding. BERNICE Marshall, Here is important information regarding your upcoming ICD implant procedure. I will call you soon to go over these instructions and answer any questions you may have. Feel free to call or reply here with any questions or concerns to the appropriate number listed at the bottom of the letter. Procedure Date: Thursday 03/15 Check in at: 6:30am Pre-procedure Nursing Instructions You may NOT have solid food or liquids containing fats, including milk, after midnight before your procedure. You may have fat free liquids (clear liquids) until 4 hours before the scheduled time of check in. Fat free clear liquids include water, apple juice, and sports drinks (such as Gatorade) ONLY. 1. On the morning of your procedure please take your regular morning medications with a small amount of water, EXCEPT: 2. Please HOLD your Eliquis the night before AND the morning of your procedure. 3. Please HOLD your Jardiance Wednesday, Wednesday and Wednesday prior to your procedure. 4. Please HOLD your Ozempic Wednesday, Wednesday and Wednesday prior to your procedure. 5. Please HOLD your Metformin the morning of your procedure. 6. Please HOLD your Insulin Lispro (Humalog) the morning of your procedure UNLESS you need to correct a high blood sugar. 7. Please DECREASE your Lantus by 20% the morning of your procedure. If you normally take 30units, ONLY take 24units. 8. Please HOLD your spironolactone the morning of your procedure. 9. If you are currently wearing a continuous glucose monitor (free style Lo) device please bringa spare with you. The one you will currently have on will need to come off for the procedure. 10. Please shower the evening before OR the morning of your procedure scrubbing your chest well with antibacterial soap, such as Dial. 11. Please do not bring any medications with you to the hospital; if we have not recently gone overyour medications, please bring an updated list with you. Please remove all jewelry including rings and body piercings before coming in for your procedure. 12. If you are UNABLE to lie flat for the procedure, please let me know. 13. You can expect to spend the night in the hospital, so please plan accordingly by bringing an overnight bag with simple items, such as a tooth brush, change of clothes, etc. When you go home, you will need a truck driver supervisor. 14. The pre-registration department may call you 1 to 2 business days before your procedure to verify that your address and insurance information are correct. You will still need to stop by Level 3 registration the day of your procedure. When you arrive at the [facility] in the underground garage, and take any elevator to the 3rd floor registration; or you may prefer to have your truck driver supervisor drop you off at the front entrance. 1. The registration staff will direct you to the surgical waiting room. Please check in with the project manager interior design and they will notify pre op of your arrival. 2. The person(s) accompanying you will need to wait in the surgical waiting area and in the pre-op or PACU area. If you are being admitted, your support person(s) will be allowed to accompany you to your room. 3. When you arrive in pre op where you will be prepped for your procedure, the pre op nurse will initiate your pre-procedure admission by reviewing your information, medications, etc. You will also have an intravenous started and possibly some blood work drawn. The prep time is approximately two hours. 4. You will meet your care team as a part of the pre procedure process. This will include your doctor, nursing and anesthesia, if indicated. Patients: Masking is optional. If a patient presents with symptoms of COVID or another respiratory illness, a mask shall be provided and they are required to wear it. Patients that are immunocompromised are encouraged to mask. Visitors: Masking is optional. Visitors are not allowed to enter the facility when sick. Post Procedure Appointment and Device check: Two week wound check: March 25 at 11:00am Dr. Crain [phone] Device check: June 18 at 1:00pm Device Clinic [facility] Cardiology [phone] Should the above appointment(s) not work, please call the number listed to reschedule a time that works for you. We are here to help, so should you need assistance prior to your procedure, please feel free to call anyone listed below with questions. EP Tourist Camp Attendant - [phone]-if you need to reschedule your procedure [facility] Device Clinic nurse - [phone]~ Zakia Please let me know you have received this information. documented in this encounter H&P Notes * Lefty Moss MD - 03/15/2023 0833 EDT The preoperative history and physical which was performed within 30 days of this procedure has been reviewed and the clinically appropriate elements of the physical examination have been repeated. There are no changes to the documented history and physical or if so such changes are documented below Lefty Moss MD 03/15/2023 8:33 Source Note - Lefty Moss MD - 02/16/2023 10:20 EDT Cardiology New Patient Visit 02/16/23 This consultation was requested by Randy Sebastian MD for hypertrophic cardiomyopathy possible ICD Chief complaint: Heart Problem Assessment & Plan Joanna Hart is a 72 y.o. female with a history of hypertrophic cardiomyopathy and intermittent AV wenkebach. She has a fair bit of LGE on cardiac MRI and recently underwent cardiac stent for CAD.She is reasonable candidate for primary prevention ICD given her hypertrophic myopathy with high risk features. We reviewed a shared decision making booklet, and she is amenable to moving forward. We will try to get this set up at her earliest convenience. Thanks again Diagnoses and all orders for this visit: Hypertrophic cardiomyopathy (HCC-CMS) ([facility]) - CASE REQUEST EP LAB - CASE REQUEST EP LAB PAF (paroxysmal atrial fibrillation) (HCC-CMS) ([facility]) - CASE REQUEST EP LAB - CASE REQUEST EP LAB No follow-ups on file. Lefty Moss MD Subjective Joanna Hart is a 72 y.o. female with a history of hypertrophic cardiomyopathy. She has had NSVTon monitoring, as well as LV wall thickness to 2 cm and a fair bit of LGE on cardiac MRI. She recently underwent a stent. She has a history of diabetes and prior CVA and remains on Eliquis for this. On past monitoring, she had had evidence of AV lilly Wenckebach, but has not had any recently. She is on good medical therapy and follows with Dr. Sebastian in the cardiomyopathy clinic. She was referred here for evaluation of ICD therapy. She has not had syncope or presyncope. She has genotyping set up, but is not clear where this process stands. She really has no other major complaints ROS See subjective for pertinent positives and negatives Past Medical History: Diagnosis Date ??? Cerebrovascular accident (CVA) ([facility]) 06/01/2019 ??? Diabetes mellitus, type 2 ([facility]) 01/26/2011 On metformin On metformin ??? Essential hypertension 06/01/2019 ??? Mixed hyperlipidemia 06/05/2019 ??? Nonrheumatic aortic valve stenosis 06/01/2019 ??? Paroxysmal atrial fibrillation (HCC-CMS) ([facility]) 06/01/2019 No past surgical history on file. Social History Tobacco Use ??? Smoking status: Never ??? Smokeless tobacco: Never Substance Use Topics ??? Alcohol use: Never No family history on file. Allergies Allergen Reactions ??? Hydroxychloroquine Anaphylaxis ??? Iodinated Contrast Media Other reaction(s): Anaphylaxsis ( TOLERATED WITH PREMEDS 05/05/17) ??? Atenolol Other (See Comments) ??? Cephalexin Other reaction(s): Rash ??? Ciprofloxacin ??? Farxiga [Dapagliflozin] Gi side effects ??? Iodine And Iodide Containing Products Hives ??? Lisinopril Other reaction(s): Unknown ??? Losartan Other reaction(s): Unknown ??? Oxycodone-Acetaminophen Other reaction(s): Hallucinations ??? Propoxyphene N-Acetaminophen Other reaction(s): Hallucinations ??? Ubzpbzv-Zbj-Kvg Reductase Inhibitors ??? Trulicity [Dulaglutide] Gi Side effect Outpatient Medications Marked as Taking for the 02/16/23 encounter (Office Visit) with Leela Moss MD: ??? acetaminophen (TYLENOL) 650 mg CR tablet, 2 tab(s) orally twice a day, only as needed ??? apixaban (ELIQUIS) 5 mg tablet, Take 1 Tablet by mouth 2 times daily. ??? BD ULTRA-FINE MICRO PEN NEEDLE 32 gauge x 1/4 needle, ??? blood glucose meter, by misc (non-drug; combo route) route daily. One touch verio meter or bestcovered by insurance. ??? cetirizine (ZYRTEC) 10 mg tablet, Take 1 Tablet by mouth daily. ??? Cholecalciferol, Vitamin D3, 10 mcg (400 unit) tablet, Take 1 Tablet by mouth daily. ??? clopidogreL (PLAVIX) 75 mg tablet, Take 1 Tablet by mouth daily. ??? cyanocobalamin (VITAMIN B-12) 500 mcg tablet, Take 1 Tablet by mouth daily. ??? empagliflozin (JARDIANCE) 10 mg tablet, Take 1 Tablet by mouth daily. ??? flash glucose scanning reader (FREESTYLE LO 2 READER) [facility] Device by [facility] (non-drug; combo route) route daily. Dispense one reader ??? FREESTYLE LO 2 SENSOR kit, USE 1 SENSOR EVERY 14 DAYS ??? gabapentin (NEURONTIN) 300 mg capsule, Take 2 Capsules by mouth 2 times daily. ??? HUMALOG KWIKPEN INSULIN 100 unit/mL injectable pen, 100-150 1 unit, 150-200 2 units, 200-250 3 units, 250-300 4 units ??? insulin glargine (LANTUS SOLOSTAR U-100 INSULIN) 100 unit/mL (3 mL) injection pen, Inject 31 Units into the skin daily. ??? lactobacillus combination no.8 3 billion cell capsule, Take 1 Capsule by mouth daily. ??? lancets/blood glucose strips (ONE TOUCH COMBO MISC), -to test blood sugar - twice daily ??? losartan (COZAAR) 25 mg tablet, Take 1 Tablet by mouth at bedtime. ??? magnesium oxide (MAG-OX) 400 mg (241.3 mg magnesium) tablet, Take 1 Tablet by mouth daily. ??? metFORMIN (GLUCOPHAGE-XR) 750 mg ER tablet, Take 1 Tablet by mouth 2 times daily. ??? metoprolol TARtrate (LOPRESSOR) 25 mg tablet, Take 0.5 Tablets by mouth daily. ??? ONETOUCH ULTRA BLUE TEST STRIP test strips, TEST BLOOD GLUCOSE THREE TIMES DAILY ??? OZEMPIC 1 mg/dose (4 mg/3 mL) pen injector, Inject 0.75 mL into the skin once a week. Sundays ??? pantoprazole (PROTONIX) 40 mg tablet, Take 1 Tablet by mouth 2 times daily. ??? REPATHA SYRINGE 140 mg/mL syringe, INJECT 1 SYRINGE SUBCUTANEOUSLY EVERY 2 WEEKS ??? spironolactone (ALDACTONE) 25 mg tablet, Take 0.5 Tablets by mouth daily. ??? UNIFINE PENTIPS, Objective BP 134/62 (BP Cuff Location: Left arm, BP Patient Position: Sitting, BP Cuff Sizes: Adult, regular) Pulse 65 Wt 68.9 kg (152 lb) SpO2 98% BMI 26.09 kg/m?? Physical Exam Gen: a/o x 3 Lungs: clear CV: rrr with normal s1s2 ABD: soft, nt, bs+ EXT: No edema Diagnostics:na I spent a total of 40 minutes on the date of this encounter meeting with the patient and reviewing documentation/coordinating care as described in the above note. documented in this encounter Procedure Notes * Lefty Moss MD - 03/15/2023 1041 EDT Post procedure note: Procedure: Biventricular ICD implant Indication: heart block, ventricular tachycardia, cardiomyopathy and high risk of sudden cardiac sulfonator operator: Lefty Moss MD Fellow: No Fellow Brief narrative: RA to RAA RV to bundle of his RV to RV apical septum Device mode: DDD Lower rate: 60 Generator Manufactor: Carte Blanche Contrast: 0 cc No immediate complication noted Postprocedure Chest XR and EKG were ordered. Bi-v icd. His lead to non-selective distal his, HV ~ 60 with qrs 120 ( NS caputure) AV lilly wenkebach and 2:1 block at baseline with fatigue/sob on minimal med rx ra to raa Good pace-sense Ice-abx-cxr Expected pain level: Chest pain is not expected. Pain at the device pocket site is usually mild. Please notify provider if more significant pain Post Procedure debrief: At the end of the procedure the following issues were addressed by operators, nurses and anesthesia(if applicable): Airway: stable Breathing: stable Circulation: Hemodynamically stable. 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 Pericardial effusion Presentation: Chest pain, tachycardia, hypotension 2. Pneumothorax Presentation: shortness of breath, hypoxia, orthopnea 3. Pocket hematoma Presentation: Severe Pain at the access site and expanding mass 4. Pulmonary edema Presentation: shortness of breath, hypoxia, cough, orthopnea 5. Lead dislodgment Presentation: unexpected bradycardia, pacing spikes without capture, abrupt increase in ectopy 6. Allergic reaction Presentation: Rash, stridor, hemodynamic instability, pruritus, airway compromise General guidance on who/how to call if issues with this patient: Until 16:00 Author of this note (via Provider Access services) KNITTING INSPECTOR/PA on EP service (via Provider Access services) Attending on the EP service (via Provider Access services or PAGER #[phone]) After 16:00 dispute coordinator on EP service (via Provider Access services) Attending on the EP service (via Provider Access services or PAGER #[phone]) Other contact numbers: EP lab - [phone] - EP lab OR7 - [phone] EP (nurse of the day) NOD - [phone] or page [phone] cath lab manager - [phone] Overhead Double page cardiology If the above calls have failed to generate satisfactory bedside assistance within 15 minutes, and the patient's condition has not yet stabilized, call the Rapid Response Team. documented in this encounter Miscellaneous Notes * Plan of Care - Ana Hicks RN - 03/16/2023 1230 EDT Problem: Daily Care Plan Goals Goal: Care Plan Documentation Outcome: Completed Flowsheets (Taken 03/16/2023 7069) Area of Focus: Discharge Plan Goal This Shift: Home today s/p XRAY Note: D: Plan to discharge home s/p Xray and PPM check per Dr. Smith. A: Reviewed plan with Irish upon AM assessment. Reviewed all discharge instructions,medications and appointments. Removed PIV and telemetry. R: Irish state and demonstrated understanding prior to discharge. Off unit in wheelchair. Problem: High Fall Risk: Goal: Patient will Remain Free of Falls due to Med. Side Effects Outcome: Completed Problem: High Fall Risk: Goal: Patient Will Remain Free from Fall-Related Injury Outcome: Completed Problem: High Fall Risk: Goal: Patient will Remain Free of Falls due to Altered Elimination Outcome: Completed Problem: High Fall Risk: Goal: Patient will Remain Free of Falls due to Altered Mobility Outcome: Completed Problem: High Fall Risk: Goal: Patient will Remain Free of Falls due to Altered Mobility Outcome: Completed Problem: High Fall Risk: Goal: Patient will Remain Free of Falls due to Dizziness/Vertigo Outcome: Completed * Plan of Care - Aneudy Cannon RN - 03/15/2023 3909 EDT Data: Joanna is admitted to from the OR s/p a planned BiVentricular ICD placement. She is A&Ox3, able to make her needs known, wears glasses and an upper partial plate, x1 assist OOB, continent (with some urgeny), and reports no pain. She has a pertinent PMH of A-fib, CVA, and DM2. Action: Admission assessment complete, oriented to unit, post-op bedrest and VS per orders, monitored telemetry, orthostatic VS obtained prior to ambulation, medications per eMar, and monitored L chest incision. Response: Pt OOB to the bathroom X1 and up in chair this afternoon, VSS, minimal pain, tolerating her diet, elevated evening glucose levels, and incision is CDI with a fresh ice pack. BP (!) 146/74 Temp 36.7 ??C (98.1 ??F) (Oral) Resp 18 Ht 162.6 cm (64) Wt 69.4 kg (153 lb) SpO2 94% BMI 26.26 kg/m?? Problem: Daily Care Plan Goals Goal: Care Plan Documentation Outcome: Ongoing Problem: High Fall Risk: Goal: Patient will Remain Free of Falls due to Med. Side Effects Outcome: Ongoing Problem: Sensory: Goal: Ability to compensate for vision loss will be supported Outcome: Ongoing ANEUDY CANNON RN 03/15/2023 17:56 * Plan of Care - Lefty Moss MD - 03/15/2023 0833 EDT Addendum to h/P: Pt in pre-op today with AV lilly wenkebach, and 2:1 heart block Reports RODRIGUEZ, no syncope. She has HCM, will likely need more Avn blockade and Need ventricular pacing in the future Will plan for LINE SUPERVISOR-d conduction system pacing lead, plus ICD Indication is AV block, Hypertrophic myopathy, high risk features with significant LGE on MRI, NSVT Discussed with pt. I reviewed an evidence based decision aid for Implantable Cardioverter- Defibrillators (ICD) with the patient. We discussed the patient???s health goals and preferences, in addition to the benefits and risks of the procedure. documented in this encounter Plan of Treatment Upcoming Encounters Date Type Department Care Team (Late st Contact Info) Description 03/08/2024 9:30 EDT Ancillary Procedure [facility] - [place] [address] [place] [address] 03/08/2024 10:15 EDT Ancillary Procedure [facility] - [place] [address] [place] [address] 04/05/2024 10:00 EDT Ancillary Procedure [facility] [address] [place] [address] 04/05/2024 10:00 EDT Office Visit [facility] [address] [place] [address] Carlos Ha, RAHEEM [address] [place] [address] [place] [address] Pending Results Name Type Priority Associated Diagnoses Date /Time CARDIAC IMPLANT CHECK - IMPLANT/POST-PROC EDURE Implantable Cardiac Device Routine 03/15/2023 10:31 EDT Scheduled Orders Name Type Priority Associated Diagnoses Orde r Schedule EKG 12-LEAD ECG Routine One Time for 1 Occurrences starting 03/15/2023 until 03/15/2023 documented as of this encounter Procedures Procedure Name Priority Date/Time Associated Diagnosis Comments ECG REPORT - SCANNED 03/18/2023 11:32 EDT ECG REPORT - SCANNED 03/18/2023 8:34 EDT IMPLANT RECORD - SCANNED 03/17/2023 16:24 EDT ECG REPORT - SCANNED 03/17/2023 16:24 EDT POCT GLUCOSE, INTERFACED Routine 03/16/2023 11:36 EDT XR CHEST 2 VIEWS Routine 03/16/2023 10:27 EDT CARDIAC IMPLANT CHECK - IMPLANT/POST-PROCED URE Routine 03/16/2023 9:18 EDT POCT GLUCOSE, INTERFACED Routine 03/16/2023 8:59 EDT POCT GLUCOSE, INTERFACED Routine 03/15/2023 23:57 EDT POCT GLUCOSE, INTERFACED Routine 03/15/2023 20:19 EDT POCT GLUCOSE, INTERFACED Routine 03/15/2023 16:27 EDT POCT GLUCOSE, INTERFACED Routine 03/15/2023 12:59 EDT EKG 12-LEAD Routine 03/15/2023 12:28 EDT XR CHEST PORTABLE 1 VIEW Routine 03/15/2023 12:05 EDT IMPLANTABLE CARDIAC DEFIBRILLATOR Routine 03/15/2023 10:47 EDT Hypertrophic cardiomyopathy (HCC-CMS) PAF (paroxysmal atrial fibrillation) (HCC-CMS) CARDIAC IMPLANT CHECK - IMPLANT/POST-PROCED URE Routine 03/15/2023 10:31 EDT Procedure Note - 03/15/2023 10:31 EDTThis note is in progress. DAY OF IMPLANT POCT GLUCOSE, INTERFACED Routine 03/15/2023 7:55 EDT documented in this encounter Results * ECG REPORT - SCANNED (03/18/2023 11:32 EDT) 03/18/2023 11:3 2 EDT Scan 2 Manager Unit PROCEDURE/MINOR CROW GICAL ORDERABLES * ECG REPORT - SCANNED (03/18/2023 8:34 EDT) 03/18/2023 8:34 EDT Scan 2 Manager Unit PROCEDURE/MINOR CROW GICAL ORDERABLES * IMPLANT RECORD - SCANNED (03/17/2023 16:24 EDT) 03/17/2023 16:2 4 EDT Scan 2 Manager Unit PROCEDURE/MINOR CROW GICAL ORDERABLES * ECG REPORT - SCANNED (03/17/2023 16:24 EDT) 03/17/2023 16:2 4 EDT Scan 2 Manager Unit PROCEDURE/MINOR CROW GICAL ORDERABLES * (ABNORMAL) POCT GLUCOSE, INTERFACED (03/16/2023 11:36 EDT) Glucose, POC 212(H) 70 - 100 mg/dL 03/16/2023 11:44 EDT [facility] HN LAB POC COMMENT (GLUCOSE) Test Performed by Nursing Services 03/16/2023 11:44 EDT [facility] Blood CAPILLARY BLOOD / Unknown 03/16/2023 11:36 EDT 03/16/2023 11:44 EDT Kerline Ann PA-C POINT OF CARE TEST O RDERABLES [facility] [address] [place] [address] * XR CHEST 2 VIEWS (03/16/2023 10:27 EDT) Anatomical Region Laterality Modality Computed Radiogr aphy 03/16/2023 10:4 0 EDT Impressions 03/16/2023 10:40 EDT Satisfactory postprocedural chest radiograph. [id number] Narrative 03/16/2023 10:40 EDT XR CHEST 2 VIEWS ??03/16/2023 10:30 AM Clinical History/comments: s/p egg sorter-d, heart block, cardiomyopathy; Comparison: 1 day prior. Technique: Frontal and lateral views of the chest. Findings: Lungs: Normal. Pleura/diaphragms: Normal. Cardiac and mediastinal contours: The cardiac silhouette is enlarged. Left-sided battery pack/generator with a lead in the right atrium and 2 leads in the right ventricle, defibrillator lead in the right ventricular apex and a pacer lead aortic oriented towards the intraventricular septum. Soft tissues and extrathoracic findings: ??Normal. Bones: Normal. Procedure Note Kareem Gross MD - 03/16/2023 XR CHEST 2 VIEWS 03/16/2023 10:30 AM Clinical History/comments: s/p egg sorter-d, heart block, cardiomyopathy; Comparison: 1 day prior. Technique: Frontal and lateral views of the chest. Findings: Lungs: Normal. Pleura/diaphragms: Normal. Cardiac and mediastinal contours: The cardiac silhouette is enlarged.Left-sided battery pack/generator with a lead in the right atrium and 2leads in the right ventricle, defibrillator lead in the right ventricularapex and a pacer lead aortic oriented towards the intraventricularseptum. Soft tissues and extrathoracic findings: Normal. Bones: Normal. IMPRESSION Satisfactory postprocedural chest radiograph. [id number] Lefty Moss MD IMG DIAGNOSTIC I MAGING ORDERABLES * CARDIAC IMPLANT CHECK - IMPLANT/POST-PROCEDURE - ICD (03/16/2023 9:18 EDT) Anatomical Region Laterality Modality Other 03/16/2023 8:05 EDT Narrative 03/20/2023 7:36 EDT Next day check, done by Earl Mendoza and ICD function normal. EB Hudson Smith MD CV IMPLANTABLE C ARDIAC DEVICE * (ABNORMAL) POCT GLUCOSE, INTERFACED (03/16/2023 8:59 EDT) Glucose, POC 206(H) 70 - 100 mg/dL 03/16/2023 9:01 EDT [facility] HN LAB POC COMMENT (GLUCOSE) Test Performed by Nursing Services 03/16/2023 9:01 EDT [facility] Blood CAPILLARY BLOOD / Unknown 03/16/2023 8:59 EDT 03/16/2023 9:01 EDT Kerline DRAKE-C POINT OF CARE TEST O RDERABLES [facility] [address] [place] [address] * (ABNORMAL) POCT GLUCOSE, INTERFACED (03/15/2023 23:57 EDT) Glucose, POC 314(H) 70 - 100 mg/dL 03/15/2023 23:58 EDT [facility] HN LAB POC COMMENT (GLUCOSE) Test Performed by Nursing Services 03/15/2023 23:58 EDT [facility] Blood CAPILLARY BLOOD / Unknown 03/15/2023 23:57 EDT 03/15/2023 23:58 EDT Lefty Moss MD POINT OF CARE TE ST ORDERABLES Performing Organization Address City/[facility]/ZIP Co de Phone Number [facility] [address] [place] [address] * (ABNORMAL) POCT GLUCOSE, INTERFACED (03/15/2023 20:19 EDT) Glucose, POC 467(H) 70 - 100 mg/dL 03/15/2023 20:21 EDT [facility] HN LAB POC COMMENT (GLUCOSE) Test Performed by Nursing Services 03/15/2023 20:21 EDT [facility] Blood CAPILLARY BLOOD / Unknown 03/15/2023 20:19 EDT 03/15/2023 20:21 EDT Kerline DRAKE-C POINT OF CARE TEST O RDERABLES Performing Organization Address [facility] Co de Phone Number [facility] [address] [place] [address] * (ABNORMAL) POCT GLUCOSE, INTERFACED (03/15/2023 16:27 EDT) Glucose, POC 428(H) 70 - 100 mg/dL 03/15/2023 16:32 EDT [facility] HN LAB POC COMMENT (GLUCOSE) Test Performed by Nursing Services 03/15/2023 16:32 EDT [facility] Blood CAPILLARY BLOOD / Unknown 03/15/2023 16:27 EDT 03/15/2023 16:32 EDT Kerline DRAKE-C POINT OF CARE TEST O RDERABLES Performing Organization Address [facility] Co de Phone Number [facility] [address] [place] [address] * (ABNORMAL) POCT GLUCOSE, INTERFACED (03/15/2023 12:59 EDT) Glucose, POC 186(H) 70 - 100 mg/dL 03/15/2023 13:01 EDT [facility] HN LAB POC COMMENT (GLUCOSE) Test Performed by Nursing Services 03/15/2023 13:01 EDT [facility] Blood CAPILLARY BLOOD / Unknown 03/15/2023 12:59 EDT 03/15/2023 13:01 EDT Lefty Moss MD POINT OF CARE TE ST ORDERABLES Performing Organization Address City/[facility] Co de Phone Number [facility] [address] [place] [address] * EKG 12-LEAD (03/15/2023 12:28 EDT) 03/15/2023 12:2 8 EDT Narrative [facility] E[facility] - 03/18/2023 8:23 EDT ? [facility] ? Test Date: ?2023-03-15 Pat Name: ? JOANNA GAUTAM ?Department: ?? [place] [address] ? Room: ? EP Gender: ? Female ? Neuropsychology Director: ?? [id number] : ?1950 ? Requested By: CHARITY ROMO Order Number: [id number] ? Reading MD: ?? SNEHA LAWRENCE MD ? Measurements Intervals ?Adams ? Rate: ? 64 ? P: ?198 NE: ? 125 ?QRS: ?28 QRSD: ? 149 ?T: ?182 QT: ? 463 ? QTc: ?480 ? Interpretive Statements ELECTRONIC ATRIAL PACEMAKER ELECTRONIC VENTRICULAR PACEMAKER Compared to ECG 01/27/2023 10:07:02 Pacing is now present I reviewed the tracing and have either agreed or edited the findings in this report. Electronically Signed On 03-18-2023 08:23:06 EDT by SNEHA LAWRENCE MD. Procedure Note Sneha Lawrence MD - 03/18/2023 [facility] Test Date: 2023-03-15 Pat Name: JOANNA HART Department: [place] [address] Room: Gender: Female Neuropsychology Director: [id number] : 1950 Requested By: CHARITY TORRES Order Number: [id number] Reading MD: SNEHA LAWRENCE MD Measurements Intervals Adams Rate: 64 P: 198 NE: 125 QRS: 28 QRSD: 149 T: 182 QT: 463 QTc: 480 Interpretive Statements ELECTRONIC ATRIAL PACEMAKER ELECTRONIC VENTRICULAR PACEMAKER Compared to ECG 01/27/2023 10:07:02 Pacing is now present I reviewed the tracing and have either agreed or edited the findings inthis report. Electronically Signed On 03-18-2023 08:23:06 EDT by KATHY HAY. Lefty Moss MD CARDIAC ECG [facility]ENDRA [facility] EKG * XR CHEST PORTABLE 1 VIEW (03/15/2023 12:05 EDT) Anatomical Region Laterality Modality Computed Radiogr aphy 03/15/2023 12:1 4 EDT Impressions 03/15/2023 12:14 EDT Left transvenous implantable cardioverter defibrillator with its leads projecting over the right atrium and right ventricle in this single AP view. [id number] Narrative 03/15/2023 12:14 EDT XR CHEST PORTABLE 1 VIEW ??03/15/2023 11:40 AM Clinical History/comments: s/p egg sorter-d heart block cardiomyopathy; Comparison: Chest radiograph March 04, 2023. Technique: Single portable AP view of the chest. Findings: Lines/tubes/devices: Left transvenous implantable cardioverter defibrillator with its leads projecting over the right atrium and right ventricle. Lungs: Clear. Pleura: No visible pleural abnormalities. Cardiac and mediastinal contours: Normal. Soft tissues and extrathoracic findings: ??Normal. Bones: Normal. Procedure Note Mack Acosta MD - 03/15/2023 XR CHEST PORTABLE 1 VIEW 03/15/2023 11:40 AM Clinical History/comments: s/p egg sorter-d heart block cardiomyopathy; Comparison: Chest radiograph March 04, 2023. Technique: Single portable AP view of the chest. Findings: Lines/tubes/devices: Left transvenous implantable cardioverterdefibrillator with its leads projecting over the right atrium and rightventricle. Lungs: Clear. Pleura: No visible pleural abnormalities. Cardiac and mediastinal contours: Normal. Soft tissues and extrathoracic findings: Normal. Bones: Normal. IMPRESSION Left transvenous implantable cardioverter defibrillator with its leadsprojecting over the right atrium and right ventricle in this single APview. [id number] Lefty Moss MD IMG DIAGNOSTIC I MAGING ORDERABLES * ICD BI-V NEW (03/15/2023 10:47 EDT) Anatomical Region Laterality Modality Cardiac Electrop hysiology Narrative 03/16/2023 11:17 EDT Choose correct report for procedure performed: Attending: Lefty Moss MD Fellow: No Fellow High Scaler :Sabrina Bruno RN Attestation: Attending only- I,Lefty Moss MD, ??performed the entire procedure and was the initial and only author of the report. Procedure: ??LINE SUPERVISOR- D with conduction system pacing lead. Summary of Procedure There were no complications. Successful Implantable cardiac defibrillator implant See post-op device check report for details, thresholds, and settings. Estimated blood loss: 30 ml. Clinical Trial: This patient is not enrolled in a clinical trial Indication: Familial or inherited condition - Documented familial or inherited conditions with a high risk of life-threatening VT, such as long QT syndrome or hypertrophic cardiomyopathy (Primary Prevention). Pt with second degree AV block, symptomatic with fatigue/sob and pauses Hypertrophic cardiomyopathy with NSVT HPI : 72 y/o F with Hypertrophic cardiomyopathy, preserved LVEF with high risk features, including NSVT, and fibrosis by cardiac MRI. Has AV block, second degree, needs implant of ICD with conduction system pacing lead lead via LINE SUPERVISOR-d device. On good med rx Indication History: Prior heart failure - yes NYHA class - II LVEF- Yes, 60% Date assessed : 10/2022 ? 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 NICM - yes GDMT max dose - Yes > 3 months Prior Cardiac arrest - no Prior VT - yes- NSVT Prior OK - ??no Prior PCI - Yes Prior CABG - No Other structural abnormalities -No Abnormality type ??Hypertrophic myopathy SDM complete (if primary prevention) - Yes- discussed Anesthesia: Conscious sedation and local anesthesia. Study Data: Device implant. The risks, benefits, and alternatives to the procedures were explained and informed consent was obtained. ??The patient name, date of , surgical site, and procedure were verified prior to the procedure. The attending physician was present for the entire procedure. ?? The patient was brought to the electrophysiology laboratory in the fasting state. ??The chest was prepped and draped in the usual sterile manner. ?? Lidocaine 2% and Bupivacaine 0.5% was administered to the left deltopectoral groove. Left axillary vein access. ??With the patient in Trendelenburg position and under fluoroscopic guidance the vessel was entered on 3 occasion(s) allowing for placement of soft-tipped J-wire(s) to the level of the inferior vena cava. An incision was made medial and perpendicular to the left deltopectoral groove. ??Using blunt dissection and electrocautery to achieve hemostasis, a device pocket was constructed. Lead implantation. The wire(s) was tunneled into the incision area. RV HV lead - Using a 9F safety sheath, a lead was advanced to the right ventricle under fluoroscopic guidance and actively fixed in the right ventricular septal / apex region. ??, His bundle lead - Through a C315 His sheath a Medtronic 3830 lead was advanced to the basal septum targeting a discrete His signal. Pt was in mobitz 1 second degree block. Pacing in the His position revealed a narrow paced QRS complex consistent with non selective His capture, with 60 ms pre-excitaiton and total qrsd 120-130ms c/w conduction system capture The lead was actively fixed at a site with optimal sensing and capture., and RAA lead - Using a 7Fr safety sheath, a lead was then advanced to right atrium under fluoroscopic guidance and actively fixed to the right atrial appendage. The lead(s) were tested before and after suturing the lead sleeve(s) to the pre-pectoralis fascia. Wound closure. The pocket was copiously irrigated with bacitracin solution. The leads were attached to the device and the system was placed in the pocket. The wound was closed in three layers. The deepest layer was continuous vertical mattress using 2-0 Monocryl. The mid layer was continuous horizontal mattress using 3-0 Monocryl. The superficial layer was continuous horizontal mattress using 4-0 Monocryl. The skin was coated with topical skin adhesive. See device details, thresholds and setting in Implant - post procedure device check. ?? Summary At the completion of the procedure, findings, results, any complications, and treatment plan were communicated to the patient and reinforced after recovery from anesthesia. With the patient's consent, the attending physician communicated findings, results, any complications, and treatment plan to family members and patient support persons who were present at the conclusion of the procedure. Recommendations As above, can uptitrate beta marisa OP if needed Lefty Moss MD CARDIAC EP ORDER PAVEL * (ABNORMAL) POCT GLUCOSE, INTERFACED (03/15/2023 7:55 EDT) Glucose, POC 192(H) 70 - 100 mg/dL 03/15/2023 8:09 EDT [facility] HN LAB POC COMMENT (GLUCOSE) Test Performed by Nursing Services 03/15/2023 8:09 EDT [facility] Blood CAPILLARY BLOOD / Unknown 03/15/2023 7:55 EDT 03/15/2023 8:09 EDT Lefty Moss MD POINT OF CARE TE ST ORDERABLES [facility] [address] [place] [address] documented in this encounter Visit Diagnoses Diagnosis PAF (paroxysmal atrial fibrillation) (HCC-CMS)- Primary Atrial fibrillation Hypertrophic cardiomyopathy (HCC-CMS) Other hypertrophic cardiomyopathy Hypertrophic cardiomyopathy (HCC-CMS) Other hypertrophic cardiomyopathy PAF (paroxysmal atrial fibrillation) (HCC-CMS) Atrial fibrillation documented in this encounter Admitting Diagnoses Diagnosis Hypertrophic cardiomyopathy (HCC-CMS) Other hypertrophic cardiomyopathy PAF (paroxysmal atrial fibrillation) (HCC-CMS) Atrial fibrillation documented in this encounter Administered Medications Inactive Administered Medications - up to 3 most recent administrations Medication Order MAR Action Action Date Dose Rate Site acetaminophen (TYLENOL) tablet 325 mg 325 mg, oral, EVERY 6 HOURS PRN, Starting on Wed03/15/23 at 1239, Until Wed03/15/23 at 1726, Mild Pain 1-3 Given 03/15/2023 16:25 EDT 325 mg acetaminophen (TYLENOL) tablet 650 mg 650 mg, oral, EVERY 6 HOURS PRN, Starting on Wed03/15/23 at 1725, Until Wed03/16/23 at 1437, Mild Pain 1-3 Given 03/15/2023 23:53 EDT 650 mg acetaminophen (TYLENOL) tablet 650 mg 650 mg, oral, NOW X1, 1 dose, On Wed03/15/23 at 1745, Routine Given 03/15/2023 17:42 EDT 650 mg BUPivacaine (PF) (MARCAINE) 0.5% injection 1 dose, Starting on Wed03/15/23 at 0815, Until Wed03/16/23 at 1437 bupivacaine-EPINEPHrine (PF) 0.5 %-1:200,000 injection 1 dose, Starting on Wed03/15/23 at 0815, Until Wed03/16/23 at 1437 cetirizine (ZYRTEC) tablet 10 mg 10 mg, oral, DAILY, First dose on Wed03/16/23 at 0900, Until Discontinued, Routine Given 03/16/2023 8:51 EDT 10 mg chlorhexidine gluconate 2 % cloth 1 Each 1 Each, topical, PRE-OP MULTIPLE, 1 dose, Starting on Wed03/15/23 at 0817, Until Wed03/15/23 at 0818, Other, Pre-Procedure, Routine, Preprocedure Given 03/15/2023 8:18 EDT 1 Each Cholecalciferol (Vitamin D3) tablet 400 Units 400 Units, oral, DAILY, First dose on Wed03/16/23 at 0900, Until Discontinued, Routine Given 03/16/2023 8:52 EDT 400 Units clopidogreL (PLAVIX) tablet 75 mg 75 mg, oral, DAILY, First dose on Wed03/16/23 at 0900, Until Discontinued, Routine Given 03/16/2023 8:51 EDT 75 mg cyanocobalamin (VITAMIN B-12) tablet 500 mcg 500 mcg, oral, DAILY, First dose on Wed03/16/23 at 0900, Until Discontinued, Routine Given 03/16/2023 8:50 EDT 500 mcg dextrose 50 % solution 12.5 g 12.5 g (25 mL), intravenous, PRN, Starting on Wed03/15/23 at 1347, Until Wed03/16/23 at 1437, Low Blood Sugar, Routine diphenhydrAMINE (BENADRYL) 50 mg/mL injection 1 dose, Starting on Wed03/15/23 at 0844, Until Wed03/16/23 at 1437 empagliflozin (JARDIANCE) tablet 10 mg 10 mg, oral, DAILY, First dose on Wed03/16/23 at 0900, Until Discontinued, Indications: type 2 diabetes mellitus, Routine Given 03/16/2023 8:51 EDT 10 mg fentaNYL citrate (PF) 50 mcg/mL injection 1 dose, Starting on Wed03/15/23 at 0815, Until Wed03/16/23 at 1437 gabapentin (NEURONTIN) capsule 600 mg 600 mg, oral, 2 TIMES DAILY, First dose on Wed03/15/23 at 2100, Until Discontinued, Routine Given 03/16/2023 8:50 EDT 600 mg Given 03/15/2023 20:14 EDT 600 mg glucagon injection 1 mg 1 mg, intramuscular, PRN, Starting on Wed03/15/23 at 1347, Until Wed03/16/23 at 1437, Other, Low blood sugar, Routine hydrocortisone-aloe vera 1 % cream topical, 4 TIMES DAILY PRN, Starting on Wed03/16/23 at 0857, Until Wed03/16/23 at 1437, Itching, rash Given 03/16/2023 11:38 EDT insulin aspart U-100 (NOVOLOG FLEXPEN) injection 5 Units 5 Units, subcutaneous, Once (Time Specified), 1 dose, On Wed03/15/23 at 2115, STAT Given 03/15/2023 21:20 EDT 5 Units insulin aspart U-100 (NOVOLOG FLEXPEN) injection subcutaneous, 3 TIMES DAILY WITH MEALS, First dose on Wed03/15/23 at 1700, Until Discontinued, Routine Given 03/16/2023 11:39 EDT 4 Units Given 03/15/2023 16:30 EDT 9 Units insulin glargine (LANTUS SOLOSTAR/SEMGLEE) injection pen 31 Units 31 Units, subcutaneous, DAILY, First dose on Wed03/16/23 at 0900, Until Discontinued, Routine Given 03/16/2023 9:02 EDT 31 Units lidocaine 20 mg/mL (2 %) injection 1 dose, Starting on Wed03/15/23 at 0815, Until Wed03/16/23 at 1437 losartan (COZAAR) tablet 25 mg 25 mg, oral, AT BEDTIME, First dose on Wed03/15/23 at 2100, Until Discontinued, Routine Given 03/15/2023 20:14 EDT 2 5 mg magnesium oxide (MAG-OX) tablet 400 mg 400 mg, oral, DAILY, First dose on Wed03/16/23 at 0900, Until Discontinued, Routine Given 03/16/2023 8:51 EDT 40 0 mg melatonin tablet 3 mg 3 mg, oral, NOW X1, 1 dose, On Wed03/16/23 at 0000, Routine Given 03/15/2023 23:53 EDT 3 mg metFORMIN (GLUCOPHAGE-XR) ER tablet 750 mg 750 mg, oral, 2 TIMES DAILY, First dose on Wed03/15/23 at 2100, Until Discontinued, Routine Given 03/16/2023 8:57 EDT 750 mg Given 03/15/2023 20:14 EDT 750 mg methylPREDNISolone sod suc(PF) (SOLU-MEDROL) 125 mg/2 mL injection 1 dose, Starting on Wed03/15/23 at 0844, Until Wed03/16/23 at 1437 metoprolol TARtrate (LOPRESSOR) tablet 12.5 mg 12.5 mg, oral, DAILY, First dose on Wed03/16/23 at 0900, Until Discontinued, Routine Given 03/16/2023 8:49 EDT 12.5 mg midazolam (PF) (VERSED) 1 mg/mL injection 1 dose, Starting on Wed03/15/23 at 0815, Until Wed03/16/23 at 1437 pantoprazole (PROTONIX) tablet 40 mg 40 mg, oral, 2 TIMES DAILY, First dose on Wed03/15/23 at 2100, Until Discontinued, Routine Given 03/16/2023 8:49 EDT 40 mg Given 03/15/2023 20:14 EDT 40 mg sodium chloride 0.9 % (NS) infusion 30 mL/hr, intravenous, CONTINUOUS, Starting on Wed03/15/23 at 0830, Until Wed03/16/23 at 1437, Routine, Preprocedure New Bag 03/15/2023 8:02 EDT 30 mL/hr 30 mL/hr spironolactone (ALDACTONE) tablet 12.5 mg 12.5 mg, oral, DAILY, First dose on Wed03/16/23 at 0900, Until Discontinued, Routine Given 03/16/2023 8:48 EDT 12.5 mg documented in this encounter Discontinued Medications Medication Sig Discontinue Reason Start Date End Da te apixaban (ELIQUIS) 5 mg tablet Take 1 Tablet by mouth 2 times daily. Reorder 12/16/2022 03/16/2023 documented as of this encounter Active and Recently Administered Medications Times are shown in EDT. Scheduled Medication Order 03/14/2023 03/15/2023 03/16/2023 acetaminophen (TYLENOL) tablet 650 mg (COMPLETED) 650 mg, oral, NOW X1, 1 dose, On Wed03/15/23 at 1745, Routine 1742 (Given - Provider: Aneudy Cannon RN) cetirizine (ZYRTEC) tablet 10 mg 10 mg, oral, DAILY, First dose on Wed03/16/23 at 0900, Until Discontinued, Routine 0851 (Given - Provid er: Ana Hicks RN) Cholecalciferol (Vitamin D3) tablet 400 Units 400 Units, oral, DAILY, First dose on Wed03/16/23 at 0900, Until Discontinued, Routine 0852 (Given - Provid er: Ana Hicks RN) clopidogreL (PLAVIX) tablet 75 mg 75 mg, oral, DAILY, First dose on Wed03/16/23 at 0900, Until Discontinued, Routine 0851 (Given - Provid er: Ana Hicks RN) cyanocobalamin (VITAMIN B-12) tablet 500 mcg 500 mcg, oral, DAILY, First dose on Wed03/16/23 at 0900, Until Discontinued, Routine 0850 (Given - Provid er: Ana Hicks RN) diphenhydrAMINE (BENADRYL) injection 50 mg (COMPLETED) 50 mg, intravenous, Once (Without Time Specified), 1 dose, Starting on Wed03/15/23 at 0817, Until Wed03/15/23 at 0909, Routine, Preprocedure 09 (Given - Provider: Julio Denis RN) empagliflozin (JARDIANCE) tablet 10 mg 10 mg, oral, DAILY, First dose on Wed03/16/23 at 0900, Until Discontinued, Indications: type 2 diabetes mellitus, Routine 08 (Given - Provid er: Ana Hicks RN) gabapentin (NEURONTIN) capsule 600 mg 600 mg, oral, 2 TIMES DAILY, First dose on Wed03/15/23 at 2100, Until Discontinued, Routine 2013 (Given - Provider: Lizzy Colvin RN) 0850 (Given - Provider: Ana Hicks RN) insulin aspart U-100 (NOVOLOG FLEXPEN) injection 5 Units (COMPLETED) 5 Units, subcutaneous, Once (Time Specified), 1 dose, On Wed03/15/23 at 2115, STAT 2120 (Given - Provider: Lizzy Colvin, JALEN) insulin aspart U-100 (NOVOLOG FLEXPEN) injection subcutaneous, 3 TIMES DAILY WITH MEALS, First dose on Wed03/15/23 at 1700, Until Discontinued, Routine 1630 (Given - Provider: Aneudy Cannon RN - Comment: f/s 428) 0852 (Not Given - Provider: Ana Hicks RN - Reason: Other - Comment: ate breakfast prior to BG check)1139 (Given - Provider: Ana Hicks RN - Comment: 212 @11:39) insulin glargine (LANTUS SOLOSTAR/SEMGLEE) injection pen 31 Units 31 Units, subcutaneous, DAILY, First dose on Wed03/16/23 at 0900, Until Discontinued, Routine 901 (Given - Provid er: Ana Hicks RN) losartan (COZAAR) tablet 25 mg 25 mg, oral, AT BEDTIME, First dose on Wed03/15/23 at 2100, Until Discontinued, Routine 2013 (Given - Provider: Lizzy Colvin RN) magnesium oxide (MAG-OX) tablet 400 mg 400 mg, oral, DAILY, First dose on Wed03/16/23 at 0900, Until Discontinued, Routine 850 (Given - Provid er: Ana Hicks RN) melatonin tablet 3 mg (COMPLETED) 3 mg, oral, NOW X1, 1 dose, On Wed03/16/23 at 0000, Routine 2352 (Given - Provider: Lizzy Colvin RN) metFORMIN (GLUCOPHAGE-XR) ER tablet 750 mg 750 mg, oral, 2 TIMES DAILY, First dose on Wed03/15/23 at 2100, Until Discontinued, Routine 2013 (Given - Provider: Lizzy Colvin RN) 08 (Given - Provider: Ana Hicks RN) methylPREDNISolone sod suc(PF) (SOLU-MEDROL) injection 60 mg (COMPLETED) 60 mg, intravenous, Once (Without Time Specified), 1 dose, Starting on Wed03/15/23 at 0817, Until Wed03/15/23 at 0909, Routine, Preprocedure 908 (Given - Provider: Julio Denis RN) metoprolol TARtrate (LOPRESSOR) tablet 12.5 mg 12.5 mg, oral, DAILY, First dose on Wed03/16/23 at 0900, Until Discontinued, Routine 848 (Given - Provid er: Ana Hicks RN) pantoprazole (PROTONIX) tablet 40 mg 40 mg, oral, 2 TIMES DAILY, First dose on Wed03/15/23 at 2100, Until Discontinued, Routine 2013 (Given - Provider: Lizzy Colvin RN) 08 (Given - Provider: Ana Hicks RN) spironolactone (ALDACTONE) tablet 12.5 mg 12.5 mg, oral, DAILY, First dose on Wed03/16/23 at 0900, Until Discontinued, Routine 847 (Given - Provid er: Ana Hicks RN) Continuous Medication Order 03/14/2023 03/15/2023 03/16/2023 sodium chloride 0.9 % (NS) infusion 30 mL/hr, intravenous, CONTINUOUS, Starting on Wed03/15/23 at 0830, Until Wed03/16/23 at 1437, Routine, Preprocedure 0802 (New Bag - Provider: Zina Julio, JALEN) PRN Medication Order 03/14/2023 03/15/2023 03/16/2023 acetaminophen (TYLENOL) tablet 325 mg (CANCELED) 325 mg, oral, EVERY 6 HOURS PRN, Starting on Wed03/15/23 at 1239, Until Wed03/15/23 at 1726, Mild Pain 1-3 1625 (Given - Provider: Aneudy Cannon RN) acetaminophen (TYLENOL) tablet 650 mg 650 mg, oral, EVERY 6 HOURS PRN, Starting on Wed03/15/23 at 1725, Until Wed03/16/23 at 1437, Mild Pain 1-3 2353 (Given - Provider: Lizzy Colvin RN) chlorhexidine gluconate 2 % cloth 1 Each (COMPLETED) 1 Each, topical, PRE-OP MULTIPLE, 1 dose, Starting on Wed03/15/23 at 0817, Until Wed03/15/23 at 0818, Other, Pre-Procedure, Routine, Preprocedure 0818 (Given - Provider: Katia Julio, JALEN - Comment: barcode on package does not read) dextrose 50 % solution 12.5 g 12.5 g (25 mL), intravenous, PRN, Starting on Wed03/15/23 at 1347, Until Wed03/16/23 at 1437, Low Blood Sugar, Routine fentaNYL citrate (PF) injection (CANCELED) PRN, Starting on Wed03/15/23 at 0921, Until Wed03/15/23 at 1130, Routine, Intraprocedure 0921 (Given - Provider: Erica Alegria RN) glucagon injection 1 mg 1 mg, intramuscular, PRN, Starting on Wed03/15/23 at 1347, Until Wed03/16/23 at 1437, Other, Low blood sugar, Routine hydrocortisone-aloe vera 1 % cream topical, 4 TIMES DAILY PRN, Starting on Wed03/16/23 at 0857, Until Wed03/16/23 at 1437, Itching, rash 1138 (Given - Provid er: Ana Hicks RN) midazolam (PF) (VERSED) injection (CANCELED) PRN, Starting on Wed03/15/23 at 0921, Until Wed03/15/23 at 1130, Routine, Intraprocedure 0921 (Given - Provider: Erica Alegria RN) vancomycin (VANCOCIN) IVPB (CANCELED) Administer over 60 Minutes, PRN, Starting on Wed03/15/23 at 0906, Until Wed03/15/23 at 1130, Routine, Intraprocedure 0906 (Given - Provider: Julio Denis RN) No Frequency Medication Order 03/14/2023 03/15/2023 03/16/2023 BUPivacaine (PF) (MARCAINE) 0.5% injection 1 dose, Starting on Wed03/15/23 at 0815, Until Wed03/16/23 at 1437 bupivacaine-EPINEPHrine (PF) 0.5 %-1:200,000 injection 1 dose, Starting on Wed03/15/23 at 0815, Until Wed03/16/23 at 1437 diphenhydrAMINE (BENADRYL) 50 mg/mL injection 1 dose, Starting on Wed03/15/23 at 0844, Until Wed03/16/23 at 1437 fentaNYL citrate (PF) 50 mcg/mL injection 1 dose, Starting on Wed03/15/23 at 0815, Until Wed03/16/23 at 1437 lidocaine 20 mg/mL (2 %) injection 1 dose, Starting on Wed03/15/23 at 0815, Until Wed03/16/23 at 1437 methylPREDNISolone sod suc(PF) (SOLU-MEDROL) 125 mg/2 mL injection 1 dose, Starting on Wed03/15/23 at 0844, Until Wed03/16/23 at 1437 midazolam (PF) (VERSED) 1 mg/mL injection 1 dose, Starting on Wed03/15/23 at 0815, Until Wed03/16/23 at 1437 documented in this encounter Orders Medications Ordered That Guy ht Not Have Been Administered Count Last Ordered Date First Ordered Date BUPivacaine (PF) (MARCAINE) 0.5% injection 1 03/15/2023 bupivacaine-EPINEPHrine (PF) 0.5 %-1:200,000 injection 1 03/15/2023 dextrose 50 % solution 12.5 g 1 03/15/2023 diphenhydrAMINE (BENADRYL) 5 0 mg/mL injection 1 03/15/2023 diphenhydrAMINE (BENADRYL) injection 50 mg 1 03/15/2023 fentaNYL citrate (PF) 50 mcg/mL injection 1 03/15/2023 fentaNYL citrate (PF) injection 1 glucagon injection 1 mg 1 03/15/2023 insulin lispro (HUMALOG KWIK PEN) injection pen 1 03/15/2023 lidocaine (PF) 10 mg/mL (1 % ) injection 2 mg 1 03/15/2023 lidocaine 20 mg/mL (2 %) injection 1 2022 methylPREDNISolone sod suc(P F) (SOLU-MEDROL) 125 mg/2 mL injection 1 03/15/2023 methylPREDNISolone sod suc(P F) (SOLU-MEDROL) injection 60 mg 1 03/15/2023 midazolam (PF) (VERSED) 1 mg/mL injection 1 03/15/2023 midazolam (PF) (VERSED) injection 1 023 sodium chloride 0.9 % (NS) infusion 2 03/15 vancomycin (VANCOCIN) IVPB 1 03/15/2023 vancomycin (VANCOCIN) IVPB 1,000 mg 1 03/15 Nursing Count Last Ordered Date First Orde red Date PATIENT AT LOW RISK FOR VTE: RISK OF PHARMACOLOGIC PROPHYLAXIS OUTWEIG 1 03/15/2023 Transfer Count Last Ordered Date First Orde red Date TRANSFER PATIENT 2 03/15/2023 Discharge Count Last Ordered Date First Orde red Date DISCHARGE PATIENT 1 03/16/2023 documented in this encounter Care Teams Sports Media Relationship Specialty Start Date End Date Bryant Crain MD [address] [place] [address] PCP - General 05/04/15 05/17/23 Carlos Ha NP [address] [place] [address] [place] [id number] Consulting Clinician Cardiovascular Disease 09/14/21 documented as of this encounter
--- OUTSIDE RECORDS SUMMARY | 2024-01-07 11:11 | XMS_ITS | Encounter Summary ---
Author Organization [facility] Address [address] [place] [address] Care Team Providers Care Handkerchief Sample Clerk Name Role Phone Bryant Crain MD Primary Care Provider [phone] Carlos Ha TACKING STITCH REMOVER Unavailable Reason for Visit * Reason Comments Follow-up Encounter Details Date Type Department Care Team (Latest Contact Info) Description 05/06/2023 14:30 EST Telemedicine [facility] [address] [place] [address] Carols Ha, TACKING STITCH REMOVER [address] [facility] [address] [place] [address] Dilated cardiomyopathy (HCC-CMS) (Primary Dx); Drug rash Social History Tobacco Use Types Packs/Day Years [...] as of this encounter Progress Notes * Dilcia Carlos L, TACKING STITCH REMOVER - 05/06/[address] [facility] [place] The concept of ???Telemedicine?? has been described to the patient.Patient has been informed of the anticipated benefits and possible risks. Patient understands the information provided regarding telemedicine, has had the opportunity to ask questions about this information, and all questions have been answered to patient???s satisfaction. Patient consents for the use of telemedicine in his/her medical care and authorizes the transmission of any relevant medical information to providers and their staff involved in patient???s medical or mental health care. Verbal consent obtained by myself or auxiliary staff: yes. CC: Follow-up HPI: This is a pleasant 72-year-old female who is scheduled for a follow up telephone visit for medical management of her CAD. She had developed drug rash and we are scheduled to day for reassessment. See office note 03/31/2023 for full details. She developed drug rash. Recommendation to discontinue losartan for two weeks at last office visit as I noted she had this medication on her allergy list. This was restarted during her recent hospitalization. When we spoke two weeks ago, she did not stop losartan. She was seen by PCP who discontinued her Plavix and started her on Brillinta. She had side effects including SOB and this was discontinued. Sheis currently off both agents. She was started on a taper dose of prednisone. We also recommended discontinuing Jardiance however this medication was not discontinued. At the time of our conversation,there rash on her legs is gone but she still has rash on back and arms. She now has been off Losartan for two weeks and improvement of her rash. Not completely gone but almost. She is not being treated for UTI on Nitrofurantoin. Her PCP discontinued Jardiance on 04/22/2023. No other CV complaints. PMH: Past Medical History: Diagnosis Date ??? Cerebrovascular accident (CVA) ([facility]) 06/01/2019 ??? Diabetes mellitus, type 2 ([facility]) 01/26/2011 On metformin On metformin ??? Essential hypertension 06/01/2019 ??? Mixed hyperlipidemia 06/05/2019 ??? Nonrheumatic aortic valve stenosis 06/01/2019 ??? Paroxysmal atrial fibrillation ([facility]) 06/01/2019 SH/FH: reviewed and updated MEDICATIONS: Medications Prior to Today's Visit Medication Sig ??? acetaminophen (TYLENOL) 650 mg CR tablet 2 tab(s) orally twice a day, only as needed ??? apixaban (ELIQUIS) 5 mg tablet Take 1 Tablet by mouth 2 times daily. ??? BD ULTRA-FINE MICRO PEN NEEDLE 32 gauge x 1/4 needle ??? blood glucose meter by [facility] (non-drug; combo route) route daily. One touch [...] on 03/31/2023) ??? flash glucose scanning reader (FREESTYLE VICKY 2 READER) [facility] 1 Device by [facility] (non-drug; comboroute) route daily. Dispense one reader [...] ??? lancets/blood glucose strips (ONE TOUCH COMBO MISC) [...] 0.5 Tablets by mouth daily. ??? UNIFINE PENTIPS No facility-administered medications prior to visit. ALLERGIES: Allergies Allergen Reactions ??? Cephalexin Anaphylaxis Other reaction(s): Rash ??? Hydroxychloroquine Anaphylaxis ??? Iodinated Contrast Media Other reaction(s): Anaphylaxsis ( TOLERATED WITH PREMEDS 05/05/17) ??? Atenolol Other (See Comments) ??? Brilinta [Ticagrelor] SOB ??? Ciprofloxacin ??? Farxiga [Dapagliflozin] Gi side effects ??? Iodine And Iodide Containing Products Hives ??? Lisinopril Other reaction(s): Unknown ??? Losartan rash ??? Oxycodone-Acetaminophen Other reaction(s): Hallucinations ??? Propoxyphene N-Acetaminophen Other reaction(s): Hallucinations ??? Vqybllv-Mbh-Wnj Reductase Inhibitors ??? Trulicity [Dulaglutide] Gi Side effect ROS: The rest of the pertinent 10 point review of systems is negative other than mentioned in the HPI Objective: Examination: Home Vitals: No vitals available for this visit Pertinent exam findings patient can observe: alert and orientated. NAD. Speaking in full sentences Data reviewed with patient: Reviewed and/or ordered active problem list, medication list, allergies, family history, social history, lab results, imaging tests DATA: Lab Results Component Value Date HGB 10.5 (L) 01/27/2023 HCT 36.1 01/27/2023 PLT 419 (H) 01/27/2023 CREATININE 1.11 (H) 01/27/2023 BUN 22 01/27/2023 CALCGFR 53 (L) 01/27/2023 K 4.6 01/27/2023 NA 138 01/27/2023 NTBNP 1,360 (H) 01/27/2023 CHOL 107 12/03/2022 HDL 40 (L) 12/03/2022 LDL 156 (H) 06/05/2019 LDLBASE 29 12/03/2022 TRIG 188 (H) 12/03/2022 HGBA1C 7.1 (H) 11/11/2022 ASSESSMENT: Problem List Items Addressed This Visit Cardiac/Vasculature Dilated cardiomyopathy (HCC-CMS) - Primary Skin Drug rash Plan 1. Discontinue Losartan. Added to Allergy list 2. Continue off Jardiance due to UTI 3. Restart Plavix 75 mg daily. She will call office if rash returns. Carlos Ha NP Patient initiated phone contact with the office: yes. Patient is an established patient (parent, guardian) yes. E/M provided within previous 7 days for same medical assessment: no Anticipate E/M service within 24hrs or next available urgent appointment no. This visit was conducted by telephone. I spent a total of 15 minutes in discussion with the patientas described in the progress note. documented in this encounter Miscellaneous Notes * Assessment & Plan Note - Carlos Ha NP - 05/06/2023 1405 ESTAssociated Problem(s): Drug rash Plan 1. Discontinue Losartan. Added to Allergy list 2. Continue off Jardiance due to UTI 3. Restart Plavix 75 mg daily. She will call office if rash returns. documented in this encounter Plan of Treatment Upcoming Encounters Date Type Department Care Team (Late st Contact Info) Description 03/08/2024 9:30 EDT Ancillary Procedure [facility] Cardiology - [facility] [address] [place] [address] 03/08/2024 10:15 EDT Ancillary Procedure [facility] Cardiology - [facility] [address] [place] [address] 04/05/2024 10:00 EDT Ancillary Procedure [facility] [address] [place] [phone] 04/05/2024 10:00 EDT Office Visit [facility] [address] [place] [phone] Carlos Ha NP [address] [place] [phone] documented as of this encounter Visit Diagnoses Diagnosis Dilated cardiomyopathy (HCC-CMS)- Primary Other primary cardiomyopathies Drug rash Dermatitis due to drugs and medicines taken internally documented in this encounter Care Teams Handkerchief Sample Clerk Relationship Specialty Start Date End Date Bryant Crain MD [address] [place], [place] [phone] PCP - General 05/04/15 05/17/23 Carlos Ha NP [address] [place] [address] [address] Consulting Clinician Cardiovascular Disease 09/14/21 documented as of this encounter
--- OUTSIDE RECORDS SUMMARY | 2024-01-07 11:11 | XMS_ITS | Encounter Summary ---
Author Organization [facility] Address [address] [place] [address] Care Team Providers Care Aerospace Manager Name Role Phone Bryant Crain MD Primary Care Provider [phone] Carlos Ha DIRECTOR PLANS Unavailable [phone] Reason for Visit * Reason Onset Date Comments Pharmacy 01/06/2023 Iron Infusion at [facility] Encounter Details Date Type Department Care Team (Late st Contact Info) Description 01/06/2023 Orders Only [facility] [address] [place] [address] Suleman Ovalles, JALEN Social History Tobacco Use Types Packs/Day Years [...] No 12/03/2022 documented as of this encounter Ordered Prescriptions Prescription Sig Dispensed Refills Start Date End Da te iron sucrose (VENOFER) 200 mg iron/10 mL solution Inject 200 mg into the vein once a week for 3 doses. This will be done in outpatient clinic at [facility] 100 mL 01/06/2023 01/21/2023 documented in this encounter Progress Notes * Suleman Ovalles RN - 01/06/202323 EDT Carlos Ha, DIRECTOR PLANS sent to Suleman Ovalles RN I want to order Venofer 200 mg IV weekly for three weeks (3 infusions total) to be done at [facility]. Thanks, Carlos Spoke with Petra at [facility] Infusion clinic. Orders sent for Venofer 200mg IV weekly x 3 via fax [phone] documented in this encounter Miscellaneous Notes * Addendum Note - Suleman Ovalles RN - 01/06/2023 0823 EDTAddended by: SULEMAN OVALLES on: 01/06/2023 08:58 Modules accepted: Orders documented in this encounter Plan of Treatment Upcoming Encounters Date Type Department Care Team (Late st Contact Info) Description 03/08/2024 9:30 EDT Ancillary Procedure [facility] Cardiology - [place] [address] 03/08/2024 10:15 EDT Ancillary Procedure [facility] Cardiology - [address] [place] [address] 04/05/2024 10:00 EDT Ancillary Procedure [facility] Clinic [address] [place] [address] 04/05/2024 10:00 EDT Office Visit [facility] [address] [place] [address] Carlos Ha NP [address] [place] [phone] documented as of this encounter Visit Diagnoses Not on filedocumented in this encounter Care Teams Aerospace Manager Relationship Specialty Start Date End Date Bryant Crain MD [address] [place], [place] [phone] PCP - General 05/04/15 05/17/23 Carlos Ha NP [address] [place] [phone] Consulting Clinician Cardiovascular Disease 09/14/21 documented as of this encounter
--- OUTSIDE RECORDS SUMMARY | 2024-01-07 11:11 | XMS_ITS | Encounter Summary ---
Author Organization [facility] Address [address] [place] [address] Care Team Providers Care As400 Consultant Name Role Phone Bryant Crain MD Primary Care Provider [phone] Carlos Ha SURVEY RESEARCH PROFESSOR Unavailable Elba Jett MD Primary Care Provider [phone] Reason for Visit * Reason Onset Date Comments Medication Management 04/01/2023 Encounter Details Date Type Department Care Team (Late st Contact Info) Description 04/01/2023 Telephone [facility] [address] [place] [address] Carlos Ha, SURVEY RESEARCH PROFESSOR [address] [facility] [address] [place] [address] Medication Management Social History Tobacco Use Types Packs/Day Years [...] Telephone Encounter - Fan Schaefer RN - 04/02/2023 0935 EDT Relayed msg to patient/ on the phone to continue to hold Jardiance and hold Losartan for 2 weeks, per Carlos Ha. They verbalized understanding. * Telephone Encounter - Fan Schaefer RN - 04/01/2023 1455 EDT Routing to Carlos Ha APRN. Please advise regarding restarting Jardiance or continuing to hold it. * Telephone Encounter - Annika Guadalupe MA - 04/01/2023 1136 EDT Pt called with confusion on pts med changes from yesterdays office visit with Carlos. Pt aware to hold losartan for two weeks. Pt had been holding jardiance per PCP due to possible cause of rash, was unsure if Carlos wanted pt to keep holding jardiance or start taking it again as prescribed. Looking for a call back wit recommendation. documented in this encounter Plan of Treatment Upcoming Encounters Date Type Department Care Team (Late st Contact Info) Description 03/08/2024 9:30 EDT Ancillary Procedure [facility] Cardiology - [address] [place] [address] 03/08/2024 10:15 EDT Ancillary Procedure [facility] Cardiology - [address] [place] [address] 04/05/2024 10:00 EDT Ancillary Procedure [facility] [address] [place] [address] 04/05/2024 10:00 EDT Office Visit [facility] [address] [place] [address] Carlos Ha NP [address] [place] [phone] documented as of this encounter Visit Diagnoses Not on filedocumented in this encounter Care Teams As400 Consultant Relationship Specialty Start Date End Date Bryant Crain MD [address] [address] PCP - General 05/04/15 05/17/23 Elba Jett MD [address] [place] [phone] PCP - General Family Medicine - Primary Care 05/18/23 Carlos Ha NP [address] [place] [phone] Consulting Clinician Cardiovascular Disease 09/14/21 documented as of this encounter
--- OUTSIDE RECORDS SUMMARY | 2024-01-07 11:11 | XMS_ITS | Encounter Summary ---
Author Organization [facility] Address [address] [place] [address] Care Team Providers Care Reel Film Inspector Name Role Phone Bryant Crain MD Primary Care Provider [phone] Carlos Ha IN HOME SALES REPRESENTATIVE Unavailable [phone] Reason for Visit * (Routine) - Order Cancelled Specialty Diagnoses / Procedures Referred By Charo daniel Referred To Contact Diagnoses Cryptogenic stroke ([facility]) Procedures CARDIAC IMPLANT CHECK - IN CLINIC Carlos Ha, IN HOME SALES REPRESENTATIVE [address] [facility] [address] [place] [address] Referral ID Status Reason Start Date Expiration Date V isits Requested Visits Authorized [id number] Order Cancelled 06/11/2020 18 18 Encounter Details Date Type Department Care Team (Late st Contact Info) Description 03/31/2023 14:30 EDT Ancillary Procedure [facility] Cardiology Clinic [address] [place] [address] Social History Tobacco Use Types [...] Info) Description 03/08/2024 9:30 EDT Ancillary Procedure [facility] Cardiology - [address] [place], [place] [phone] 03/08/2024 10:15 EDT Ancillary Procedure [facility] Cardiology [address] [place] [address] 04/05/2024 10:00 EDT Ancillary Procedure [facility]iology Clinic [address] [place] [phone] 04/05/2024 10:00 EDT Office Visit [facility]iology [facility] [address] [place] [phone] Carlos Ha NP [address] [place] [address]-[address] [place] [phone] documented as of this encounter Visit Diagnoses Not on filedocumented in this encounter Orders Imaging Orders Without Results Count Last Order ed Date First Ordered Date CARDIAC IMPLANT CHECK - IN CLINIC 1 020 documented in this encounter Care Teams Reel Film Inspector Relationship Specialty Start Date End Date Bryant Crain MD [address] [place], [place] [phone] PCP - General 05/04/15 05/17/23 Carlos Ha NP [address] [place] [phone] Consulting Clinician Cardiovascular Disease 09/14/21 documented as of this encounter
--- OUTSIDE RECORDS SUMMARY | 2024-01-07 11:11 | XMS_ITS | Encounter Summary ---
Author Organization [facility] Address [address] [place] [address] Care Team Providers Care Chain Builder Loom Control Name Role Phone Bryant Crain MD Primary Care Provider [phone] Carlos Ha AUTOMATIC FABRIC CUTTER Unavailable [phone] Elba Jett MD Primary Care Provider [phone] Reason for Visit * Reason Onset Date Comments Appointment Related 05/05/2023 Encounter Details Date Type Department Care Team (Late st Contact Info) Description 05/05/2023 Telephone [facility] [address] [place] [address] Carlos Ha, AUTOMATIC FABRIC CUTTER [address] [facility] [address] [place] [address] Appointment Related Social History Tobacco [...] encounter Miscellaneous Notes * Telephone Encounter - Claire Rodrigues - 05/05/2023 1552 EST Patient has appointment at 2:30 with Carlos. * Telephone Encounter - Claire Rodrigues - 05/05/2023 1325 EST Called patient to try and take Carlos's cancellation on 05/06/23 at 2pm. documented in this encounter Plan of Treatment Upcoming Encounters Date Type Department Care Team (Late st Contact Info) Description 03/08/2024 9:30 EDT Ancillary Procedure [facility] Cardiology - [place] [address] [place] [address] 03/08/2024 10:15 EDT Ancillary Procedure [facility] Cardiology [facility] [place] [address] 04/05/2024 10:00 EDT Ancillary Procedure [facility]iology Clinic [address] [place] [address] 04/05/2024 10:00 EDT Office Visit [facility] Cardiology Clinic [address] [place] [address] Carlos Ha, AUTOMATIC FABRIC CUTTER [address] [place] [address] [facility] [address] [place] [address] documented as of this encounter Visit Diagnoses Not on filedocumented in this encounter Care Teams Chain Builder Loom Control Relationship Specialty Start Date End Date Bryant Crain MD [address] [place], [place] [phone] PCP - General 05/04/15 05/17/23 Elba Jett MD [address] [place] [address] [place] [phone] PCP - General Family Medicine - Primary Care 05/18/23 Carlos Ha NP [address] [place] [address] [address] [place] [address] Consulting Clinician Cardiovascular Disease 09/14/21 documented as of this encounter
--- OUTSIDE RECORDS SUMMARY | 2024-01-07 11:11 | XMS_ITS | Encounter Summary ---
Author Organization [facility] Address [address] [place] [address] Care Team Providers Care Pet Care Attendant Name Role Phone Bryant Crain MD Primary Care Provider [phone] Carlos Ha MAT REPAIRER Unavailable Elba Jett MD Primary Care Provider [phone] Reason for Visit * Reason Onset Date Comments Follow-up 04/15/2023 Encounter Details Date Type Department Care Team (Late st Contact Info) Description 04/15/2023 Telephone [facility] Clinic [address] [place] [address] Carlos Ha, MAT REPAIRER [address] [facility] [address] [place] [address] Follow-up Social History Tobacco Use Types Packs/Day Years [...] Telephone Encounter - Fan Schaefer RN - 04/15/2023 1622 EDT Spoke with patient on the phone and relayed information from provider as requested. Patient verbalized understanding. documented in this encounter Plan of Treatment Upcoming Encounters Date Type Department Care Team (Late st Contact Info) Description 03/08/2024 9:30 EDT Ancillary Procedure [facility] Cardiology - [address] [place], [place] [phone] 03/08/2024 10:15 EDT Ancillary Procedure [facility] Cardiology - [address] [place] [address] 04/05/2024 10:00 EDT Ancillary Procedure [facility] Cardiology Clinic [address] [place] [phone] 04/05/2024 10:00 EDT Office Visit [facility] Cardiology Clinic [address] [place] [address] Carlos Ha NP [address] [place] [address] [place] [phone] documented as of this encounter Visit Diagnoses Not on filedocumented in this encounter Care Teams Pet Care Attendant Relationship Specialty Start Date End Date Bryant Crain MD [address] [place] [address] PCP - General 05/04/15 05/17/23 Elba Jett MD [address] [facility] [address] [place] [phone] PCP - General Family Medicine - Primary Care 05/18/23 Carlos Ha NP [address] [place] [phone] Consulting Clinician Cardiovascular Disease 09/14/21 documented as of this encounter
--- OUTSIDE RECORDS SUMMARY | 2024-01-07 11:11 | XMS_ITS | Encounter Summary ---
Author Organization [facility] Address [address] [place] [address] Care Team Providers Care Contact Person Name Role Phone Bryant Crain MD Primary Care Provider [phone] Carlos Ha BUSINESS DIRECTOR Unavailable [phone] Reason for Visit * Reason Comments Follow-up Encounter Details Date Type Department Care Team (Latest Contact Info) Description 01/27/2023 16:00 EDT Office Visit [facility] [address] [place] [address] Carlos Ha, BUSINESS DIRECTOR [address] [facility] [address] [place] [address] Chronic heart failure with preserved ejection fraction (HCC-CMS) (Primary Dx); Hypertrophic cardiomyopathy (HCC-CMS); Ventricular tachycardia (HCC-CMS); Paroxysmal atrial fibrillation (HCC-CMS); Essential hypertension; Mixed hyperlipidemia Social History Tobacco Use Types Packs/Day Years [...] Sign Reading Time Taken Comments Blood Pressure 138/62 01/27/2023 1555 EDT Pulse 68 01/27/2023 1555 EDT Temperature - - Respiratory Rate - - Oxygen Saturation 95% 01/27/2023 1555 EDT Inhaled Oxygen Concentration - - Weight 71.7 kg (158 lb) 01/27/2023 1555 EDT Height 162.6 cm (5' 4) 01/27/2023 1555 EDT Body Mass Index 27.12 01/27/2023 1555 EDT documented in this encounter Functional Status [...] No 12/03/2022 documented as of this encounter Progress Notes * Carlos Ha, BUSINESS DIRECTOR - 01/27/2023 1600 EDT Images from the original note were not included. CC: Follow-up HPI: This is a pleasant 72-year-old female who is here for an inpatient [...] but was cancelled as she presented to [facility] ED on the day it was scheduled. She presented to [facility] on with complaints of fatigue, chest [...] and octreotide. She was then transferred to [facility]. Repeat EDG showed esophagitis, scattered petechia [...] in for NSTEMI. She was transferred to [facility] for LHC 12/08/2022 with severe single vessel coronary artery disease for which she underwent PCI with MADONNA to RCA (90% proximal lesion). Residual disease includes p Ramus 80%, mLCX 50%. She was sent home on clopidogrel, jardiance, losartan, and spironolactone. Cardiac MRI completed 12/04 demonstrated severe, concentric thickening of the left ventricle with complete obliteration of left ventricle during systole. She returns today with her . She continues to complain of shortness of breath with minimal exertion. She also complains of chest pressure (feel like there is a person on my chest). This occurs moving room to room in her house. She also has been experiencing symptoms at Cardiac Rehab. She does have some dizziness and describes one episode last week of sudden onset of dizziness with loss of function in right leg. She grabbed a chair and waited and her symptoms resolved spontaneously without sequelae. No syncope. No orthopnea or PND. She does not think she has noticed improvement in hersymptoms since [facility] with PCI. I feel the same. Still weak and fatigued with most activities. [facility] Cryptogenic stroke (left MCA) 2017 with Medtronic loop 2016. ASA recently started during admission at [facility] 08/2022 Paroxysmal atrial fibrillation (2 hr episode noted on monitor 2018.Started on Eliquis. No further episodes noted) NSVT (1 episode August 2019 with negative MPI) AVB type I and II - noted on desk monitor during recent admission Hypertension, Hyperlipidemia (LDL 65 in 2021: She has been intolerant to multiple statins now on REPATHA) DM2 (A1C 7.1) CKD III Kidney stone 11/02 passed Duodenal ulcer and esophagitis with acute GIB admit to [facility] 11/11-11/14. D/C on Protonix. ?Parkinson's Disease SH Lives in [place] with spouse Has three grown children She [...] 1/4 needle ??? blood glucose meter by [facility] [place] (non-drug; combo route) route daily. One touch verio meter or best covered by insurance. ??? cetirizine (ZYRTEC) 10 mg tablet Take 1 Tablet by mouth daily. ??? Cholecalciferol, Vitamin D3, 10 mcg (400 unit) tablet Take 1 Tablet by mouth daily. ??? clopidogreL (PLAVIX) 75 mg tablet Take 1 Tablet by mouth daily. ??? cyanocobalamin (VITAMIN B-12) 500 mcg tablet Take 1 Tablet by mouth daily. ??? empagliflozin (JARDIANCE) 10 mg tablet Take 1 Tablet by mouth daily. ??? flash glucose scanning reader (FREESTYLE VICKY 2 READER) [facility] [place] 1 Device by [facility] [place] (non-drug; comboroute) route daily. Dispense one reader [...] ??? lancets/blood glucose strips (ONE TOUCH [facility] [place]) -to test blood sugar - twice daily [...] mg/dose (4 mg/3 mL) pen injector Inject 0.75 mL into the skin once a week. Sundays ??? pantoprazole (PROTONIX) 40 mg tablet Take 1 Tablet by mouth 2 times daily. ??? REPATHA SYRINGE 140 mg/mL syringe INJECT 1 SYRINGE SUBCUTANEOUSLY EVERY 2 WEEKS ??? spironolactone (ALDACTONE) 25 mg tablet Take 0.5 Tablets by mouth daily. ??? UNIFINE PENTIPS No facility-administered medications prior to visit. ALLERGIES: Allergies Allergen Reactions ??? Hydroxychloroquine Anaphylaxis ??? [...] ??? Propoxyphene N-Acetaminophen Other reaction(s): Hallucinations ??? Udjrdvc-Gsr-Xry Reductase Inhibitors ??? Trulicity [Dulaglutide] Gi Side effect ROS: The rest of the pertinent 10 point review of systems is negative other than mentioned in the HPI PHYSICAL EXAM: Vitals: 01/27/23 1555 BP: 138/62 BP Cuff Location: Right arm BP Patient Position: Sitting BP Cuff Sizes: Adult, regular Pulse: 68 SpO2: 95% Weight: 71.7 kg (158 lb) Height: 162.6 [...] EXAM: Alert and oriented x3. Gait normal DATA: NM PET 12/07/2022 ??? Perfusion: There was a moderate intensity, medium sized reversible perfusion defect in the basal inferior, basal inferoseptal and mid inferior wall(s). There is evidence of transient ischemic dilation (TID). ??? Function: Global LV function is mildly reduced. Post-stress ejection fraction is 45 %. There iswas hypokinesis of the inferior wall . ??? Stress ECG: Stress ECG was negative. ??? Stress data: Maximal heart rate during stress was 77 (51 % of MPHR). ??? There is severe coronary calcification. Agaston score: 1,073.[address] finding(s): smallpericardial effusion. ??? The myocardial flow reserve was 1.89 for the LAD, which was mildlyabnormal. The myocardial flowreserve was 1.65 for the LCX, which was abnormal. The myocardial flow reserve was 1.16 for the RCA,which was abnormal. The overall myocardial flow reserve was 1.68 which was abnormal. ??? Perfusion??Defect: There was evidence of transient ischemic dilation (TID) with a value of 1.4 [facility] 12/08/2022 CORONARY ARTERIES: The coronary circulation is right dominant. ?? Left main: Minor luminal irregularities. LAD: Minor [...] nonsustained VT runs, longest 12 consecutive beats ?? Moderately frequent PACs ?? Pt conducts with AV delay and IVCD. Heart Block occurred 17 time(s) the most severe 2?? type 1; slowest 50 BPM Lab Results Component Value Date HGB 9.0 (L) 01/05/2023 HCT 31.1 (L) 01/05/2023 PLT 557 (H) 01/05/2023 NTBNP 3,200 (H) 12/01/2022 CHOL 107 12/03/2022 HDL 40 (L) 12/03/2022 LDL 156 (H) 06/05/2019 LDLBASE 29 12/03/2022 TRIG 188 (H) 12/03/2022 HGBA1C 7.1 (H) 11/11/2022 ASSESSMENT/PLAN 1. CAD recent NSTEMI (12/08/22) 90% stenosis of RCA found on angiography. [facility] completed 12/08/22 with successful RCA stenting. -Tolerating Plavix. ASA discontinued while on Eliquis (hx of GIB due to esophagitis requiring transfusion) -Continue BB and Repatha -Hold Cardiac Rehab until she is symptomatically doing better 2. HCM severe asymmetric hypertrophy of LV with septal thickness 1.9 cm. Work up includes MCOT which she will start today. Awaiting MRI at [facility] 12/31. Spoke with Dr. Sebastian at [facility] who saw her in consultation. Referral sent to have him follow up with her as outpatient. Awaiting appointment. Low dose Metoprolol started while at [facility] -Consultation with Dr. Sebastian today. -No medication changes. -Labs pending -Referred to EP for evaluation of pacer/ICD -Genetic testing pending 3. NSVT. -EP referral placed 4. PAF. -Eliquis resumed -No episodes of AF seen on MCOT 5. Second degree AVB type I and II seen on telemetry. First degree AVB on EKG today. -Stable on decreased BB dose -EP referral placed 6. HTN. Well controlled. 7. HDL. LDL treated to target on REPATHA. Statin intolerant -Continue Repatha. Target LDL <70 8. DM2 9. CVA (left MCA) 2017. Aspirin DC during recent admission d/t duodenal ucler 10. . Mild on most recent echo 11. Anemia GI blood loss -H & H stable -Completed 2 out of three infusion. She is scheduled for third infusion next week Patient advised to seek immediate medical attention with any further episodes of melena or signs ofbleeding, worsening chest pain, shortness of breath, or syncope. Scheduled for three week follow up. I spent a total of 35 minutes on the date of this encounter which includes time with the patient, time reviewing medical records and laboratory results, time updating the chart information, and time composing this note. No procedures were performed at the time of the visit. Cralos Ha NP documented in this encounter Plan of Treatment Upcoming Encounters Date Type Department Care Team (Late st Contact Info) Description 03/08/2024 9:30 EDT Ancillary Procedure [facility] [place] [address] 03/08/2024 10:15 EDT Ancillary Procedure [facility] - [address] [place] [id number] 04/05/2024 10:00 EDT Ancillary Procedure [facility] [address] [place] [id number] 04/05/2024 10:00 EDT Office Visit [facility] [address] [place] [address] Carlos Ha NP [address] [place] [phone] documented as of this encounter Visit Diagnoses Diagnosis Chronic heart failure with preserved ejection fraction (HCC-CMS)- Primary Hypertrophic cardiomyopathy (HCC-CMS) Other hypertrophic cardiomyopathy Ventricular tachycardia (HCC-CMS) Paroxysmal ventricular tachycardia Paroxysmal atrial fibrillation (HCC-CMS) Atrial fibrillation Essential hypertension Unspecified essential hypertension Mixed hyperlipidemia documented in this encounter Care Teams Contact Person Relationship Specialty Start Date End Date Bryant Crain MD [address] [place] [address] PCP - General 05/04/15 05/17/23 Carlos Ha NP [address] [place] [address] [address] Consulting Clinician Cardiovascular Disease 09/14/21 documented as of this encounter
--- OUTSIDE RECORDS SUMMARY | 2024-01-07 11:11 | XMS_ITS | Encounter Summary ---
Author Organization [facility] Address [address] [place] [address] Care Team Providers Care Animal Care Taker Name Role Phone Bryant Crain MD Primary Care Provider [phone] Carlos Ha AIRFRAME DESIGN ENGINEER Unavailable [phone] Reason for Visit * Reason Onset Date Comments Appointment Related 01/26/2023 Encounter Details Date Type Department Care Team (Late st Contact Info) Description 01/26/2023 Telephone [facility] - [address] [place] [address] Randy Sebastian MD [address] [place] [phone] Appointment Related Social History Tobacco Use Types [...] No 12/03/2022 documented as of this encounter Miscellaneous Notes * Telephone Encounter - Janee Winter - 01/26/2023 1509 EDT The patient was contacted in regard to their appointment tomorrow 01/27/[address] Sebastian. A message was left for the patient to come in at 9:30 am instead of 10 am to allow more time for the visit. documented in this encounter Plan of Treatment Upcoming Encounters Date Type Department Care Team (Late st Contact Info) Description 03/08/2024 9:30 EDT Ancillary Procedure [facility] - [facility] [place] [address] 03/08/2024 10:15 EDT Ancillary Procedure [facility] [place] [address] 04/05/2024 10:00 EDT Ancillary Procedure [facility] [address] [place] [id number] 04/05/2024 10:00 EDT Office Visit [facility] [address] [place] [phone] Carlos Ha, RAHEEM [address] [place] [address] [address] [place] [phone] documented as of this encounter Visit Diagnoses Not on filedocumented in this encounter Care Teams Animal Care Taker Relationship Specialty Start Date End Date Bryant Crain MD [address] [place] [address] PCP - General 05/04/15 05/17/23 Carlos Ha NP [address] [place] [address] [address] [place] [address] Consulting Clinician Cardiovascular Disease 09/14/21 documented as of this encounter
--- OUTSIDE RECORDS SUMMARY | 2024-01-07 11:11 | XMS_ITS | Encounter Summary ---
Author Organization [facility] Address [address] [place] [address] Care Team Providers Care Ice Handler Name Role Phone Bryant Crain MD Primary Care Provider [phone] Carlos Ha TEXTILE KNITTER Unavailable [phone] Reason for Visit * Reason Onset Date Comments Appointment Related 04/19/2023 Encounter Details Date Type Department Care Team (Late st Contact Info) Description 04/19/2023 Telephone [facility] Clinic [address] [place] [address] Carlos Ha, TEXTILE KNITTER [address] [facility] [address] [place] [address] Appointment Related Social History Tobacco [...] * Telephone Encounter - Nestor Espinosa - 04/22/2023 1037 EDT Telemed visit scheduled for 05/06/23 with pt * Telephone Encounter - Carlos Ha NP - 04/19/2023 1258 EDT See previous note documented in this encounter Plan of Treatment Upcoming Encounters Date Type Department Care Team (Late st Contact Info) Description 03/08/2024 9:30 EDT Ancillary Procedure [facility] - [place] [address] [place] [address] 03/08/2024 10:15 EDT Ancillary Procedure [facility] - [place] [address] [place] [address] 04/05/2024 10:00 EDT Ancillary Procedure [facility] [address] [place] [id number] 04/05/2024 10:00 EDT Office Visit [facility] [address] [place] [phone] Carlos Ha NP [address] [place] [address] [place] [phone] documented as of this encounter Visit Diagnoses Not on filedocumented in this encounter Care Teams Ice Handler Relationship Specialty Start Date End Date Bryant Crain MD [address] [place], [place] [id number] PCP - General 05/04/15 05/17/23 Carlos Ha NP [address] [place] [address]- [address] [place] [address] Consulting Clinician Cardiovascular Disease 09/14/21 documented as of this encounter
--- OUTSIDE RECORDS SUMMARY | 2024-01-07 11:11 | XMS_ITS | Encounter Summary ---
Author Organization [facility] Address [address] [place] [address] Care Team Providers Care Supervisor Ticket Sales Name Role Phone Bryant Crain MD Primary Care Provider [phone] Carlos Ha TELESALES ADVISOR Unavailable [phone] Reason for Visit * Auth/Cert (Routine) Specialty Diagnoses / [facility]erred To Contact Diagnoses Hypertrophic cardiomyopathy (HCC-CMS) PAF (paroxysmal atrial fibrillation) (HCC-CMS) Hypertrophic cardiomyopathy (HCC-CMS) (HCC) [I42.2] PAF (paroxysmal atrial fibrillation) (HCC-CMS) (HCC) [I48.0] Procedures NE INSJ/RPLCMT PERM DFB W/TRNSVNS LDS 1/DUAL CHMBR ICD New System Dual Lefty Moss MD [address] [address] Referral ID Status Reason Start Date Expiration Date Visits Re quested Visits Authorized [id number] 02/16/2023 1 1 Encounter Details Date Type Department Care Team (Late st Contact Info) Description 03/15/2023 8:30 EDT - 03/15/2023 10:30 EDT Surgery [place] [address] EP Lab [address] [place], [place] [address] Lefty Moss MD [address] [place] [id number] ICD BI-V New Surgery Details Date/Time Status Location OR Service Patient Class Case Class Case Type Trauma Case? 03/15/23 0830 Posted [facility] EP Lab EP Lab 2 Cardiovascular Extended Stay Panel 1 Procedure LRB Anes Op Region Wound Class Comments ICD BI-V New Left Chest Surgeon Surgeon Role Service Panel Lefty Moss MD Primary Cardiovascular 1 documented in this encounter Social History Tobacco Use Types Packs/Day Years [...] Sign Reading Time Taken Comments Blood Pressure 163/79 03/15/2023 1027 EDT Pulse - - Temperature 36.2 ??C (97.2 ??F) 03/15/2023 0653 EDT Respiratory Rate 18 03/15/2023 1027 EDT Oxygen Saturation 97% 03/15/2023 1027 EDT Inhaled Oxygen Concentration - - Weight - - Height - - Body Mass Index - - documented in this encounter Functional Status Functional [...] Noted ??? *PAF (paroxysmal atrial fibrillation) (HCC-CMS) ([facility]) 02/16/2023 ??? Hypertrophic cardiomyopathy (HCC-CMS) ([facility]) Resolved Hospital Problems No resolved problems to display. Principal Procedure: Implantable Cardioverter Defibrillator (ICD) Date: 03/15/2023 Procedure:??Biventricular ICD implant Indication:??heart block, ventricular tachycardia, cardiomyopathy and high risk of sudden cardiac track grinder operator:??Lefty Moss MD Fellow: No Fellow ?? Brief narrative: RA to RAA RV to bundle of his RV to RV apical septum Device mode: DDD Lower rate: 60 Generator Manufactor: [employer] Contrast:?? 0 cc No immediate complication noted [...] Pacemaker device interrogation in 3 months at [facility] cardiology on 06/18/23 Allergies and Immunizations Allergies [...] ??? Propoxyphene N-Acetaminophen Other reaction(s): Hallucinations ??? Ddygimw-Yzk-Eit Reductase Inhibitors ??? Trulicity [Dulaglutide] Gi Side [...] 03/16/2023 10:30 AM ?? Clinical History/comments: s/p thread milling machine set up operator-d, heart block, cardiomyopathy; ?? Comparison: 1 day prior. ?? Technique: Frontal and lateral views of the chest. ?? Findings: ?? Lungs: Normal. Pleura/diaphragms: Normal.XR CHEST 2 VIEWS 03/16/2023 10:30 AM ?? Clinical History/comments: s/p thread milling machine set up operator-d, heart block, cardiomyopathy; ?? Comparison: 1 day [...] 11/11/2022 Discharge Follow Up Appointments Scheduled with [facility] Upcoming Appointments Mar 31, 2023 14:30 PPM/ICD Device Check - In Clinic with [facility] 1 [facility] (--) [address] [place] [address] Please bring any insurance information and a copayment if required by your insurance company. Mar 31, 2023 14:30 Office Visit Medium with Carlos Ha NP [facility] (--) [address] [place] [address] May 18, 2023 14:00 Office Visit with Randy Sebastian MD [facility] - [place] (--) [address] [place] [address] Kerline Ann PA-C 03/16/2023 12:03 The patient [...] check: March 25 at 11:00am Dr. Crain [phone] Device check: June 18 at 1:00pm Device Clinic [facility] Cardiology [phone] Should the above appointment(s) not work, please call the number listed to reschedule a time that works for you. We are here to help, so should you need assistance prior to your procedure, please feel free to call anyone listed below with questions. EP School Office Assistant - [phone]-if you need to reschedule your procedure [facility] Device Clinic nurse - [phone]~ Zakia Please let me know you have [...] of breath, palpitations or chest pain contact 911immediately. If 2 or more successive shocks occur, call your physician or nurse [place] [phone]. Do not hesitate to call emergency personnel [...] you travel by air please inform the four h club agent & airport security of your device (ICD). You must be hand searched verses magnetic field. Know your medicines, keep a list with you and take them as prescribed. Family members should learn CPR and are encouraged to become certified if they are capable of doingso. Contact the [employer] for more details. Please tell [...] 4 times /year. Our Outpatient Cardiology Clinic/ [facility] is located at [address] [place] [address] in [place]. These appointments will take approximately 20 minutes and you will be reminded of this date by mail. Clinics are also held in [facility]/[place], [place]/[facility], [facility], [facility], [facility]/[place],[facility]/ [place] and [facility]/[place]. We will make arrangements for your follow [...] hesitate to call the cardiac arrhythmia service [phone] or [phone] or1 extension [phone]. For scheduling of appointments and related questions, please call [phone] or extension [phone]. documented in this encounter Medications at Time [...] hyperglycemia, with long-term current use of insulin ([facility]) by misc (non-drug; combo route) route daily. [...] glucose scanning reader (FREESTYLE LO 2 READER) [facility] 1 Device by [facility] (non-drug; combo route) route daily. Dispense one [...] 01/18/2020 lancets/blood glucose strips (ONE TOUCH COMBO [facility]) -to test blood sugar - twice daily [...] Means Destination Comment s Home or Self Jail documented in this encounter Progress Notes * [...] -Continue current management -Post procedure x-ray -Hold DIRECTOR CLIENT SERVICES eliquis 48 hours post procedure Kerline Ann PA-C 03/15/2023 11:50 * Zakia Dixon RN - 03/08/2023 1003 EDT Images from the original note were not included. [address] [place] [address] 03/08-I spoke with pt and her regarding [...] you go home, you will need a logging truck driver. 14. The pre-registration department may call you [...] or you may prefer to have your logging truck driver drop you off at the front entrance. 1. The registration staff will direct you to the surgical waiting room. Please check in with the receptionist scheduler and they will notify pre op of [...] check: March 25 at 11:00am Dr. Crain [phone] Device check: June 18 at 1:00pm Device Clinic [facility] Cardiology [phone] Should the above appointment(s) not work, please call the number listed to reschedule a time that works for you. We are here to help, so should you need assistance prior to your procedure, please feel free to call anyone listed below with questions. EP School Office Assistant - [phone]-if you need to reschedule your procedure [facility] Device Clinic nurse - [phone] Koehler Please let me know you have received [...] orders for this visit: Hypertrophic cardiomyopathy (HCC-CMS) ([facility]) - CASE REQUEST EP LAB - CASE REQUEST EP LAB PAF (paroxysmal atrial fibrillation) (HCC-CMS) ([facility]) - CASE REQUEST EP LAB - CASE [...] History: Diagnosis Date ??? Cerebrovascular accident (CVA) ([facility]-CMS) 06/01/2019 ??? Diabetes mellitus, type 2 ([facility]-CMS) 01/26/2011 On metformin On metformin ??? Essential hypertension 06/01/2019 ??? Mixed hyperlipidemia 06/05/2019 ??? Nonrheumatic aortic valve stenosis 06/01/2019 ??? Paroxysmal atrial fibrillation (HCC-CMS) (HCC) 06/01/2019 No past surgical history on file. [...] ??? Propoxyphene N-Acetaminophen Other reaction(s): Hallucinations ??? Oicceyt-Rwc-Gwv Reductase Inhibitors ??? Trulicity [Dulaglutide] Gi Side [...] glucose scanning reader (FREESTYLE LO 2 READER) [facility], 1 Device by [facility] (non-drug; combo route) route daily. Dispense one [...] ??? lancets/blood glucose strips (ONE TOUCH COMBO [facility]), -to test blood sugar - twice daily [...] cardiomyopathy and high risk of sudden cardiac track grinder operator: Lefty Moss MD Fellow: No Fellow Brief narrative: RA to RAA RV to bundle of his RV to RV apical septum Device mode: DDD Lower rate: 60 Generator Manufactor: [employer] Contrast: 0 cc No immediate complication noted [...] The patient was considered stable to transfer yard coordinator will give 1:1 verbal report Share: No [...] of this note (via Provider Access services) TELESALES ADVISOR/PA on EP service (via Provider Access services) Attending on the EP service (via Provider Access services or PAGER #[phone]) After 16:00 general pediatrician on EP service (via Provider Access services) Attending on the EP service (via Provider Access services or PAGER #[phone]) Other contact numbers: EP lab - [id number] - EP lab OR7 - [phone] EP (nurse of the day) NOD - [phone] or page [phone] dental laboratory manager - [phone] [address] Double page cardiology If the above calls have failed to generate satisfactory bedside assistance within 15 minutes, and the patient's condition has not yet stabilized, call the Rapid Response Team. documented in this encounter Miscellaneous Notes * Plan of Care - Ana Hicks RN - 03/16/2023 1230 EDT Problem: Daily Care Plan Goals Goal: Care Plan Documentation Outcome: Completed Flowsheets (Taken 03/16/2023 0845) Area of Focus: Discharge Plan Goal This [...] Care - Aneudy Cannon RN - 03/15/2023 1756 EDT Data: Joanna is admitted to M4 from the OR s/p a planned BiVentricular [...] Care - Lefty Moss MD - 03/15/2023 0853 EDT Addendum to h/P: Pt in pre-op today with AV lilly wenkebach, and 2:1 heart block Reports RODRIGUEZ, no syncope. She has HCM, will likely need more Avn blockade and Need ventricular pacing in the future Will plan for LEAD BUSINESS ANALYST-d conduction system pacing lead, plus ICD Indication [...] Info) Description 03/08/2024 9:30 EDT Ancillary Procedure [facility] - [facility] [address] [place] [address] 03/08/2024 10:15 EDT Ancillary Procedure [facility] - [place] [address] [place] [address] 04/05/2024 10:00 EDT Ancillary Procedure [facility] [address] [place] [id number] 04/05/2024 10:00 EDT Office Visit [facility] [address] [place] [phone] Carlos Ha NP [address] [place] [address] [address] [place] [address] Pending Results Name Type Priority [...] EDT) 03/18/2023 11:3 2 EDT Scan 2 Diesel Truck Mechanic PROCEDURE/MINOR CROW GICAL ORDERABLES * ECG REPORT - SCANNED (03/18/2023 8:34 EDT) 03/18/2023 8:34 EDT Scan 2 Diesel Truck Mechanic PROCEDURE/MINOR CROW GICAL ORDERABLES * IMPLANT RECORD - SCANNED (03/17/2023 16:24 EDT) 03/17/2023 16:2 4 EDT Scan 2 Diesel Truck Mechanic PROCEDURE/MINOR CROW GICAL ORDERABLES * ECG REPORT - SCANNED (03/17/2023 16:24 EDT) 03/17/2023 16:2 4 EDT Scan 2 Diesel Truck Mechanic PROCEDURE/MINOR CROW GICAL ORDERABLES * (ABNORMAL) POCT GLUCOSE, INTERFACED (03/16/2023 11:36 EDT) Glucose, POC 212(H) 70 - 100 mg/dL 03/16/2023 11:44 EDT [facility] HN LAB POC COMMENT (GLUCOSE) Test Performed by Nursing Services 03/16/2023 11:44 EDT [facility] Blood CAPILLARY BLOOD / Unknown 03/16/2023 11:36 EDT 03/16/2023 11:44 EDT Kerline Ann PA-C POINT OF CARE TEST O RDERABLES [facility] [address] [place] [address] * XR CHEST 2 VIEWS (03/16/2023 10:27 EDT) Anatomical Region Laterality Modality Computed Radiogr aphy 03/16/2023 10:4 0 EDT Impressions 03/16/2023 10:40 EDT Satisfactory postprocedural chest radiograph. 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 [...] VIEWS 03/16/2023 10:30 AM Clinical History/comments: s/p thread milling machine set up operator-d, heart block, cardiomyopathy; Comparison: 1 day prior. [...] Bones: Normal. IMPRESSION Satisfactory postprocedural chest radiograph. [id number] Lefty Moss MD IMG DIAGNOSTIC I MAGING [...] 70 - 100 mg/dL 03/16/2023 9:01 EDT [facility] HN LAB POC COMMENT (GLUCOSE) Test Performed by Nursing Services 03/16/2023 9:01 EDT [facility] Blood CAPILLARY BLOOD / Unknown 03/16/2023 8:59 EDT 03/16/2023 9:01 EDT Kerline SHAVERC POINT OF CARE TEST O RDERABLES [facility] [address] [place] [address] * (ABNORMAL) POCT GLUCOSE, INTERFACED (03/15/2023 23:57 EDT) Glucose, POC 314(H) 70 - 100 mg/dL 03/15/2023 23:58 EDT [facility] HN LAB POC COMMENT (GLUCOSE) Test Performed by Nursing Services 03/15/2023 23:58 EDT [facility] Blood CAPILLARY BLOOD / Unknown 03/15/2023 23:57 EDT 03/15/2023 23:58 EDT Lefty Moss MD POINT OF CARE TE ST ORDERABLES Performing Organization Address City/[facility]/ZIP Co de Phone Number [facility] [address] [place] [address] * (ABNORMAL) POCT GLUCOSE, INTERFACED (03/15/2023 20:19 EDT) Glucose, POC 467(H) 70 - 100 mg/dL 03/15/2023 20:21 EDT [facility] HN LAB POC COMMENT (GLUCOSE) Test Performed by Nursing Services 03/15/2023 20:21 EDT [facility] Blood CAPILLARY BLOOD / Unknown 03/15/2023 20:19 EDT 03/15/2023 20:21 EDT Kerline SHAVERC POINT OF CARE TEST O RDERABLES [facility] [address] [place] [address] * (ABNORMAL) POCT GLUCOSE, INTERFACED (03/15/2023 16:27 EDT) Glucose, POC 428(H) 70 - 100 mg/dL 03/15/2023 16:32 EDT [facility] HN LAB POC COMMENT (GLUCOSE) Test Performed by Nursing Services 03/15/2023 16:32 EDT [facility] Blood CAPILLARY BLOOD / Unknown 03/15/2023 16:27 EDT 03/15/2023 16:32 EDT Kerline Ann PA-C POINT OF CARE TEST O RDERABLES Performing Organization Address [facility] Co de Phone Number [facility] [address] [place] [address] * (ABNORMAL) POCT GLUCOSE, INTERFACED (03/15/2023 12:59 EDT) Glucose, POC 186(H) 70 - 100 mg/dL 03/15/2023 13:01 EDT [facility] HN LAB POC COMMENT (GLUCOSE) Test Performed by Nursing Services 03/15/2023 13:01 EDT [facility] Blood CAPILLARY BLOOD / Unknown 03/15/2023 12:59 EDT 03/15/2023 13:01 EDT Lefty Moss MD POINT OF CARE TE ST ORDERABLES Performing Organization Address [facility] Co de Phone Number [facility] [address] [place] [address] * EKG 12-LEAD (03/15/2023 12:28 EDT) 03/15/2023 12:2 8 EDT Narrative [facility] - 03/18/2023 8:23 EDT ? [facility] ? Test Date: ?2023-03-15 Pat Name: ? JOANNA GAUTAM ?Department: ?? [place] [facility] ? Room: ? EP Gender: ? Female ? Medical Appliance Maker: ?? [id number] : ?1950 ? Requested By: CHARITY ROMO Order Number: [id number] ? Oleksandr MD: ?? SNEHA LAWRENCE MD ? Measurements Intervals ?[place] ? Rate: ? 64 ? P: ?198 [...] Note Sneha Lawrence MD - 03/18/2023 [facility] Test Date: 2023-03-15 Pat Name: JOANNA HART Department: [place] [address] Room: Gender: Female Medical Appliance Maker: [id number] : 1950 Requested By: CHARITY TORRES Order Number: [id number] Reading MD: SNEHA LAWRENCE MD Measurements Intervals [place] Rate: 64 P: 198 NE: 125 QRS: 28 QRSD: 149 T: 182 QT: 463 QTc: 480 Interpretive Statements ELECTRONIC ATRIAL PACEMAKER ELECTRONIC VENTRICULAR PACEMAKER Compared to ECG 01/27/2023 10:07:02 Pacing is now present I reviewed the tracing and have either agreed or edited the findings inthis report. Electronically Signed On 03-18-2023 08:23:06 EDT by KATHY HAY. Lefty Moss MD CARDIAC ECG [facility] EKG * XR CHEST PORTABLE 1 VIEW (03/15/2023 12:05 EDT) Anatomical Region Laterality Modality Computed Radiogr aphy 03/15/2023 12:1 4 EDT Impressions 03/15/2023 12:14 EDT Left transvenous implantable cardioverter defibrillator with its leads projecting over the right atrium and right ventricle in this single AP view. [id number] Narrative 03/15/2023 12:14 EDT XR CHEST PORTABLE 1 VIEW ??03/15/2023 11:40 AM Clinical History/comments: s/p thread milling machine set up operator-d heart block cardiomyopathy; Comparison: Chest radiograph March [...] VIEW 03/15/2023 11:40 AM Clinical History/comments: s/p thread milling machine set up operator-d heart block cardiomyopathy; Comparison: Chest radiograph March [...] and right ventricle in this single APview. [id number] Lefty Moss MD IMG DIAGNOSTIC I MAGING ORDERABLES * ICD BI-V NEW (03/15/2023 10:47 EDT) Anatomical Region Laterality Modality Cardiac Electrop hysiology Narrative 03/16/2023 11:17 EDT Choose correct report for procedure performed: Attending: Lefty Moss MD Fellow: No Fellow Marketing Outreach Coordinator :Sabrina Bruno RN Attestation: Attending only- I,Lefty Moss MD, ??performed the entire procedure and was the initial and only author of the report. Procedure: ??LEAD BUSINESS ANALYST- D with conduction system pacing lead. Summary [...] with conduction system pacing lead lead via LEAD BUSINESS ANALYST-d device. On good med rx Indication History: Prior heart failure - yes NYHA class - II LVEF- Yes, 60% Date assessed : 10/2022 ? 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 NICM - yes GDMT max dose - Yes > 3 months Prior Cardiac arrest - no Prior [place] - yes- NSVT Prior ME - ??no Prior PCI - Yes Prior [...] - Through a C315 His sheath a [employer] 3830 lead was advanced to the basal [...] 70 - 100 mg/dL 03/15/2023 8:09 EDT [facility] HN LAB POC COMMENT (GLUCOSE) Test Performed by Nursing Services 03/15/2023 8:09 EDT [facility] Blood CAPILLARY BLOOD / Unknown 03/15/2023 7:55 EDT 03/15/2023 8:09 EDT Lefty Moss MD POINT OF CARE TE ST ORDERABLES [facility] [address] [place] [address] documented in this encounter Visit Diagnoses Diagnosis [...] Wed03/15/23 at 0844, Until Wed03/16/23 at 1437 diphenhydrAMINE (BENADRYL) injection 50 mg 50 mg, intravenous, Once (Without Time Specified), 1 dose, Starting on Wed03/15/23 at 0817, Until Wed03/15/23 at 0909, Routine, Preprocedure Given 03/15/2023 9:09 EDT 50 mg empagliflozin (JARDIANCE) tablet 10 mg 10 mg, oral, DAILY, First dose on Wed03/16/23 at 0900, Until Discontinued, Indications: type 2 diabetes mellitus, Routine Given 03/16/2023 8:51 EDT 10 mg fentaNYL citrate (PF) 50 mcg/mL injection 1 dose, Starting on Wed03/15/23 at 0815, Until Wed03/16/23 at 1437 fentaNYL citrate (PF) injection PRN, Starting on Wed03/15/23 at 0921, Until Wed03/15/23 at 1130, Routine, Intraprocedure Given 03/15/2023 9:21 EDT 25 mcg gabapentin (NEURONTIN) capsule 600 mg 600 mg, [...] Wed03/15/23 at 0844, Until Wed03/16/23 at 1437 methylPREDNISolone sod suc(PF) (SOLU-MEDROL) injection 60 mg 60 mg, intravenous, Once (Without Time Specified), 1 dose, Starting on Wed03/15/23 at 0817, Until Wed03/15/23 at 0909, Routine, Preprocedure Given 03/15/2023 9:09 EDT 60 mg metoprolol TARtrate (LOPRESSOR) tablet 12.5 mg 12.5 mg, oral, DAILY, First dose on Wed03/16/23 at 0900, Until Discontinued, Routine Given 03/16/2023 8:49 EDT 12.5 mg midazolam (PF) (VERSED) 1 mg/mL injection 1 dose, Starting on Wed03/15/23 at 0815, Until Wed03/16/23 at 1437 midazolam (PF) (VERSED) injection PRN, Starting on Wed03/15/23 at 0921, Until Wed03/15/23 at 1130, Routine, Intraprocedure Given 03/15/2023 9:21 EDT 1 mg pantoprazole (PROTONIX) tablet 40 mg 40 mg, [...] Routine Given 03/16/2023 8:48 EDT 12.5 mg vancomycin (VANCOCIN) IVPB Administer over 60 Minutes, PRN, Starting on Wed03/15/23 at 0906, Until Wed03/15/23 at 1130, Routine, Intraprocedure Given 03/15/2023 9:06 EDT 1,000 mg IV documented in this encounter Discontinued Medications Medication [...] Discontinued, Indications: type 2 diabetes mellitus, Routine 0851 (Given - Provid er: Ana Hicks RN) gabapentin (NEURONTIN) capsule 600 mg 600 mg, oral, 2 TIMES DAILY, First dose on Wed03/15/23 at 2100, Until Discontinued, Routine 2013 (Given - Provider: Lizzy Vinicius, RN) 0850 (Given - Provider: Ana Hicks RN) insulin aspart U-100 (NOVOLOG FLEXPEN) injection 5 Units (COMPLETED) 5 Units, subcutaneous, Once (Time Specified), 1 dose, On Wed03/15/23 at 2115, STAT 2120 (Given - Provider: Lizzy Colvin RN) insulin aspart U-100 (NOVOLOG FLEXPEN) injection subcutaneous, [...] on Wed03/16/23 at 0900, Until Discontinued, Routine 09 (Given - Provid er: Ana Hicks RN) losartan (COZAAR) tablet 25 mg 25 mg, oral, AT BEDTIME, First dose on Wed03/15/23 at 2100, Until Discontinued, Routine 2013 (Given - Provider: Lizzy Colvin RN) magnesium oxide (MAG-OX) tablet 400 mg 400 mg, oral, DAILY, First dose on Wed03/16/23 at 0900, Until Discontinued, Routine 08 (Given - Provid er: Ana Hicks RN) melatonin tablet 3 mg (COMPLETED) 3 mg, oral, NOW X1, 1 dose, On Wed03/16/23 at 0000, Routine 2353 (Given - Provider: Lizzy Colvin RN) metFORMIN (GLUCOPHAGE-XR) ER tablet 750 mg 750 mg, oral, 2 TIMES DAILY, First dose on Wed03/15/23 at 2100, Until Discontinued, Routine 2013 (Given - Provider: Lizzy Colvin RN) 0857 (Given - Provider: Ana Hicks RN) methylPREDNISolone sod suc(PF) (SOLU-MEDROL) injection 60 mg (COMPLETED) 60 mg, intravenous, Once (Without Time Specified), 1 dose, Starting on Wed03/15/23 at 0817, Until Wed03/15/23 at 0909, Routine, Preprocedure 09 (Given - Provider: Julio Denis RN) metoprolol TARtrate (LOPRESSOR) tablet 12.5 mg 12.5 mg, oral, DAILY, First dose on Wed03/16/23 at 0900, Until Discontinued, Routine 08 (Given - Provid er: Ana Hicks RN) pantoprazole (PROTONIX) tablet 40 mg 40 mg, oral, 2 TIMES DAILY, First dose on Wed03/15/23 at 2100, Until Discontinued, Routine 2013 (Given - Provider: Lizzy Colvin RN) 08 (Given - Provider: Ana Hicks RN) spironolactone (ALDACTONE) tablet 12.5 mg 12.5 mg, oral, DAILY, First dose on Wed03/16/23 at 0900, Until Discontinued, Routine 08 (Given - Provid er: Ana [...] Routine, Preprocedure 0818 (Given - Provider: Katia Julio RN - Comment: barcode on package does not [...] (BENADRYL) 5 0 mg/mL injection 1 03/15/2023 fentaNYL citrate (PF) 50 mcg/mL injection 1 03/15/2023 glucagon injection 1 mg 1 03/15/2023 insulin lispro (HUMALOG KWIK PEN) injection pen 1 03/15/2023 lidocaine (PF) 10 mg/mL (1 % ) injection 2 mg 1 03/15/2023 lidocaine 20 mg/mL (2 %) injection 1 2022 methylPREDNISolone sod suc(P F) (SOLU-MEDROL) 125 mg/2 mL injection 1 03/15/2023 midazolam (PF) (VERSED) 1 mg/mL injection 1 03/15/2023 sodium chloride 0.9 % (NS) infusion 2 03/15 vancomycin (VANCOCIN) IVPB 1,000 mg 1 03/15 Nursing Count Last Ordered Date First Orde red Date PATIENT AT LOW RISK FOR VTE: RISK OF PHARMACOLOGIC PROPHYLAXIS OUTWEIG 1 03/15/2023 Transfer Count Last Ordered Date First Orde red Date TRANSFER PATIENT 2 03/15/2023 Discharge Count Last Ordered Date First Orde red Date DISCHARGE PATIENT 1 03/16/2023 documented in this encounter Care Teams Supervisor Ticket Sales Relationship Specialty Start Date End Date Bryant Crain MD [address] [place] [address] PCP - General 05/04/15 05/17/23 Carlos Ha NP [address] [place] [phone] Consulting Clinician Cardiovascular Disease 09/14/21 documented as of this encounter
--- OUTSIDE RECORDS SUMMARY | 2024-01-07 11:11 | XMS_ITS | Encounter Summary ---
Author Organization [facility] Address [address] [place] [address] Care Team Providers Care Content Production Specialist Name Role Phone Bryant Crain MD Primary Care Provider [phone] Carlos Ha MOBILE EQUIPMENT MECHANIC Unavailable [phone] Reason for Referral * Radiology Services (Routine/Next Available) - Specialty Report Received Specialty Diagnoses / Procedures Referred By [facility] Referred To Contact Diagnoses Chronic heart failure with preserved ejection fraction (HCC-CMS) Procedures XR CHEST 2 VIEWS Carlos [facility] NP [address] [facility] [address] [address] Referral ID Status Reason Start Date Expiration Date V isits Requested Visits Authorized [id number] Specialty Report Received 03/02/2023 1 1 Reason for Visit * Reason Comments Cardiomyopathy Encounter Details Date Type Department Care Team (Late st Contact Info) Description 03/02/2023 16:15 EDT Office Visit [facility] - [facility] Cardiology Clinic [address] [place] [address] Carlos Ha NP [address] [facility] [address] [address] Chronic heart failure with preserved ejection fraction (HCC-CMS) (Primary Dx) Social History Tobacco Use [...] Sign Reading Time Taken Comments Blood Pressure 138/68 03/02/2023 1620 EDT Pulse 63 03/02/2023 1620 EDT Temperature - - Respiratory Rate - - Oxygen Saturation 96% 03/02/2023 1620 EDT Inhaled Oxygen Concentration - - Weight 70.4 kg (155 lb 4.8 oz) 03/02/2023 1620 E DT Height 162.6 cm (5' 4) 03/02/2023 1620 EDT Body Mass Index 26.66 03/02/2023 1620 EDT documented in this encounter Functional Status [...] this encounter Progress Notes * Carlos Ha, MOBILE EQUIPMENT MECHANIC - 03/02/2023 1615 EDT Images from the original note were not included. CC: Cardiomyopathy HPI: This is a pleasant 72-year-old female [...] but was cancelled as she presented to [facility] ED on the day it was scheduled. She presented to [facility] on with complaints of fatigue, chest [...] and octreotide. She was then transferred to [facility]. Repeat EDG showed esophagitis, scattered petechia [...] in for NSTEMI. She was transferred to [facility] for [facility] 12/08/2022 with severe single vessel coronary artery disease for which she underwent PCI with MADONNA to RCA (90% proximal lesion). Residual disease includes p Ramus 80%, mLCX 50%. She was sent home on clopidogrel, jardiance, losartan, and spironolactone. Cardiac MRI completed 12/04 demonstrated severe, concentric thickening of the left ventricle with complete obliteration of left ventricle during systole. INTERIM HISTORY Consult with Dr. Sebastian 01/27/2023 HCM -septal thickness 17 mm with very high burden LGE on MRI, epsides of NSVT. Plan for dual chamber pacer/ICD. Genetic testing recommended but not completed Remains SOB with minimal exertion. Little improvement in symptoms Complaining of generalized pruritis with maculopapular rash on arms, legs, chest, and back PMH Cryptogenic stroke (left MCA) 2017 with Acaciatronic loop 2016. ASA recently started during admission at [facility] 08/2022 Paroxysmal atrial fibrillation (2 hr episode noted on monitor 2018.Started on Eliquis. No further episodes noted) NSVT (1 episode August 2019 with negative MPI) AVB type I and II - noted on lunchroom monitor during recent admission Hypertension, Hyperlipidemia (LDL 65 in 2021: She has been intolerant to multiple statins now on REPATHA) DM2 (A1C 7.1) CKD III Kidney stone 11/02 passed Duodenal ulcer and esophagitis with acute GIB admit to [facility] 11/11-11/14. D/C on Protonix. ?Parkinson's Disease HCM -septal thickness 17 mm with very high burden LGE on MRI, epsides of NSVT. SH Lives in [place] with spouse Has three grown children She [...] 1/4 needle ??? blood glucose meter by [facility] (non-drug; combo route) route daily. One touch [...] glucose scanning reader (FREESTYLE VICKY 2 READER) [facility] 1 Device by [facility] (non-drug; comboroute) route daily. Dispense one reader [...] ??? Propoxyphene N-Acetaminophen Other reaction(s): Hallucinations ??? Ocvjoga-Lxw-Giw Reductase Inhibitors ??? Trulicity [Dulaglutide] Gi Side effect ROS: The rest of the pertinent 10 point review of systems is negative other than mentioned in the HPI PHYSICAL EXAM: Vitals: 03/02/23 1620 BP: 138/68 BP Cuff Location: Right arm BP Patient Position: Sitting BP Cuff Sizes: Adult, large Pulse: 63 SpO2: 96% Weight: 70.4 kg (155 lb 4.8 oz) Height: 162.6 cm (64) GENERAL APPEARANCE: No [...] dilation (TID) with a value of 1.4 [facility] 12/08/2022 CORONARY ARTERIES: The coronary circulation is [...] from base to apex. The distal apex ([id number]) is concentrically involved by delayed enhancement. Left [...] 90% stenosis of RCA found on angiography. [facility] completed 12/08/22 with successful RCA stenting. -Tolerating Plavix. ASA discontinued while on Eliquis (hx of GIB due to esophagitis requiring transfusion) -Continue BB and Repatha -Hold Cardiac Rehab until she is symptomatically doing better 2. HCM severe asymmetric hypertrophy of LV with septal thickness 1.7 cm. -Consultation with Dr. Sebastian plan for ICD. -No medication changes. -Genetic testing pending -Low dose BB with inability to uptitrate at this time given AVB. May be able to increase dose afterpacer. 3. NSVT. -Dual chamber pacer/icd implant scheduled at [facility] 03/15/2023 4. PAF. -Eliquis resumed -No episodes of AF seen on MCOT 5. Second degree AVB type I and II seen on telemetry. First degree AVB on EKG today. -scheduled for device implant 03/15 6. HTN. Well controlled. 7. HDL. LDL treated to target on REPATHA. Statin intolerant -Continue Repatha. Target LDL <70 8. DM2 9. CVA (left MCA) 2017. Aspirin DC during recent admission d/t duodenal ucler 10. . Mild on most recent echo 11. Anemia GI blood loss -repeat iron studies ordered to rule out ongoing iron deficiency as contributing to symptoms. 12. ? Drug rash -new medications clopidogrel (since November) Jardiance Spironolactone Losartan -other possibility eliquis but she has been on this chcf 13. SOB -labs and cxr I spent a total of 50 minutes on the date of this encounter [...] Ancillary Procedure [facility] Cardiology - [facility] [address] [place], [place] [phone] 03/08/2024 10:15 EDT Ancillary Procedure [facility] Cardiology - [facility] [address] [place], [place] [phone] 04/05/2024 10:[address] [facility] Cardiology Clinic [address] [facility] [place] [address] 04/05/2024 10:[address] [facility] Cardiology Clinic [address] [place] [address] Carlos Ha NP 130 [facility] [address] [place] [address] Scheduled Orders Name Type Priority Associated Diagnoses Orde r Schedule XR CHEST 2 VIEWS Imaging Routine Chronic heart failure with preserved ejection fraction (HCC-CMS) Expected: 03/02/2023 (Approximate), Expires: 03/02/2024 documented as of this encounter Results * (ABNORMAL) COMPREHENSIVE METABOLIC PANEL (CMP) (06/03/2023 12:20 EST) Sodium 138 136 - 145 mmol/L 06/03/2023 13:01 [facility] Potassium 4.8 3.5 - 5.0 mmol/L 06/03/2023 13:01 [facility] Chloride 104 96 - 110 mmol/L 06/03/2023 13:01 [facility] CO2 Total 26 22 - 32 mmol/L 06/03/2023 13:01 [facility] Glucose 314(H) 70 - 99 mg/dl 06/03/2023 13:01 [facility] BUN 18 10 - 26 mg/dL 06/03/2023 13:01 [facility] Creatinine 0.86 0.52 - 1.04 mg/dL 06/03/2023 13:01 [facility] eGFR 72 >60 mL/min/1.7 3m2 06/03/2023 13:01 [facility] Total Protein 6.7 6.3 - 8.2 g/dL 06/03/2023 13:01 [facility] Albumin 3.9 3.4 - 4.9 g/dL 06/03/2023 13:01 [facility] Alkaline Phosphatase 67 38 - 126 U/L 06/03/2023 13:01 [facility] AST 24 15 - 46 U/L 06/03/2023 13:01 [facility] ALT 17 <35 U/L 06/03/2023 13:01 [facility] Bilirubin, Total 0.7 <1.4 mg/dL 06/03/20 13:01 [facility] Calcium 10.6(H) 8.5 - 10.5 mg/dL 06/03/2023 13:01 [facility] Albumin/Globulin Ratio 1.4 1.0 - 2.5 g/dL 06/03/2023 13:01 [facility] Anion Gap 8 5 - 14 mmol/L 06/03/2023 13:01 [facility] Blood VENOUS BLOOD / Unknown Venipuncture / Unknown 06/03/2023 12:20 EST 06/03/2023 12:36 EST Carlos Ha NP CHEMISTRY & BLOOD GA S ORDERABLES Performing Organization Address City/State/[facility] Co de Phone Number [facility] [address] [place] [address] * (ABNORMAL) NT PRO BNP (06/03/2023 12:20 EST) NT-pro BNP 1,740(H) <221 pg/mL 06/03/2023 13:11 [facility] Comment: In the acute setting NT-proBNP values <300 pg/mL have a 98% NPV for excluding acute heart failure. In outpatient populations, NT-proBNP values <125 have a 99% NPV for excluding heart failure. Blood VENOUS BLOOD / Unknown Venipuncture / Unknown 06/03/2023 12:20 EST 06/03/2023 12:36 EST Carlos Ha NP CHEMISTRY & BLOOD GA S ORDERABLES [facility] [address] [place] [address] documented in this encounter Visit Diagnoses Diagnosis Chronic heart failure with preserved ejection fraction (HCC-CMS)- Primary documented in this encounter Care Teams Content Production Specialist Relationship Specialty Start Date End Date Bryant Crain MD [address] [place], [place] [phone] PCP - General 05/04/15 05/17/23 Carlos Ha NP [address] [facility] [address] [place] [phone] Consulting Clinician Cardiovascular Disease 09/14/21 documented as of this encounter
--- OUTSIDE RECORDS SUMMARY | 2024-01-07 11:11 | XMS_ITS | Encounter Summary ---
Author Organization [facility] Address [address] [place] [address] Care Team Providers Care Cloud Security Architect Name Role Phone Bryant Crain MD Primary Care Provider [phone] Carlos Ha COPY AND PRINT ASSOCIATE Unavailable [phone] Reason for Visit * Reason Comments Follow-up Encounter Details Date Type Department Care Team (Late st Contact Info) Description 04/15/2023 10:00 EDT Telemedicine [facility] - [facility] Cardiology Clinic [address] [place] [address] Carlos Ha, COPY AND PRINT ASSOCIATE [address] [facility] [address] [place] [address] Drug rash (Primary Dx) Social History Tobacco Use Types [...] this encounter Progress Notes * Carlos Ha, COPY AND PRINT ASSOCIATE - 04/15/2023 1000 EDT [facility] Telephone Visit The concept of ???Telemedicine?? has [...] visit for medical management of her CAD. See office note 03/31/2023 for full details. She developed drug rash. Recommendation to discontinue losartan for two weeks at last office visit as I noted she had this medication on her allergy list. This was restarted during her recent hospitalization. She tells me she did not stop losartan. She was seen by PCP who discontinued her Plavix and started her on Brillinta. She had side effects including SOB and this was discontinued. She is currently off both agents. She was started on a taper dose of prednisone. There rash on her legs is gone but she still has rash on back and arms. PMH: Past Medical History: Diagnosis Date ??? Cerebrovascular accident (CVA) ([facility]) 06/01/2019 ??? Diabetes mellitus, type 2 ([facility]) 01/26/2011 On metformin On metformin ??? Essential hypertension 06/01/2019 ??? Mixed hyperlipidemia 06/05/2019 ??? Nonrheumatic aortic valve stenosis 06/01/2019 ??? Paroxysmal atrial fibrillation ([facility]) 06/01/2019 SH/FH: reviewed and updated MEDICATIONS: Medications Prior to Today's Visit Medication Sig ??? acetaminophen (TYLENOL) 650 mg CR tablet 2 tab(s) orally twice a day, only as needed ??? apixaban (ELIQUIS) 5 mg tablet Take 1 Tablet by mouth 2 times daily. ??? BD ULTRA-FINE MICRO PEN NEEDLE 32 gauge x 1/4 needle ??? blood glucose meter by [facility] (non-drug; combo route) route daily. One touch [...] glucose scanning reader (FREESTYLE VICKY 2 READER) [facility] 1 Device by [facility] (non-drug; comboroute) route daily. Dispense one reader [...] ??? lancets/blood glucose strips (ONE TOUCH COMBO [facility]) -to test blood sugar - twice daily [...] ??? Propoxyphene N-Acetaminophen Other reaction(s): Hallucinations ??? Erifopf-Nfg-Bcw Reductase Inhibitors ??? Trulicity [Dulaglutide] Gi Side [...] ASSESSMENT: Problem List Items Addressed This Visit Skin Drug rash - Primary New medications Clopidogrel- Stopped two weeks ago by PCP. Brillinta started and not tolerated. Will [facility] at [facility] as she is only 4 mos post single PCI. ?need to re-challenge with plavix Jardiance - discontinued but did not improve rash Spironolactone - Losartan - records state allergy dated 03/16/2019 but reaction not documents. I am recommending she discontinue this medication to see if rash improves Carlos Ha NP Patient initiated phone contact with the office: yes. Patient is an established patient (parent, guardian) yes. E/M provided within previous 7 days for same medical assessment: no Anticipate E/M service within 24hrs or next available urgent appointment no. This visit was conducted by telephone. I spent a total of 20 minutes in discussion with the patientas described in the progress note. documented in this encounter Miscellaneous Notes * Assessment & Plan Note - Carlos Ha NP - 04/15/2023 1651 EDTAssociated Problem(s): Drug rash New medications Clopidogrel- Stopped two weeks ago by PCP. Brillinta started and not tolerated. Will follow up withCardiology team at [facility] as she is only 4 mos post single PCI. ?need to re-challenge with plavix Jardiance - discontinued but did not improve rash Spironolactone - Losartan - records state allergy dated 03/16/2019 but reaction not documents. I am recommending she discontinue this medication to see if rash improves documented in this encounter Plan of Treatment Upcoming Encounters Date Type Department Care Team (Late st Contact Info) Description 03/08/2024 9:30 EDT Ancillary Procedure [facility] Cardiology - [facility] [address] [place] [address] 03/08/2024 10:15 EDT Ancillary Procedure [facility] Cardiology [address] [place] [address] 04/05/2024 10:00 EDT Ancillary Procedure [facility] Cardiology Clinic [address] [place] [phone] 04/05/2024 10:00 EDT Office Visit [facility] Cardiology Clinic [address] [place] [phone] Carlos Ha NP [address] [place] [phone] documented as of this encounter Visit Diagnoses Diagnosis Drug rash- Primary Dermatitis due to drugs and medicines taken internally documented in this encounter Care Teams Cloud Security Architect Relationship Specialty Start Date End Date Bryant Crain MD [address] [place], [place] [phone] PCP - General 05/04/15 05/17/23 Carlos Ha NP [address] [place] [phone] Consulting Clinician Cardiovascular Disease 09/14/21 documented as of this encounter
--- OUTSIDE RECORDS SUMMARY | 2024-01-07 11:11 | XMS_ITS | Encounter Summary ---
Author Organization [facility] Address [address] [place] [address] Care Team Providers Care Bakery Supervisor Name Role Phone Bryant Crain MD Primary Care Provider [phone] Carlos Ha WELDER METAL FAB Unavailable [phone] Reason for Visit * Reason Onset Date Comments Follow-up 03/04/2023 Encounter Details Date Type Department Care Team (Late st Contact Info) Description 03/04/2023 Telephone [facility] Clinic [address] [place] [address] Carlos Ha, WELDER METAL FAB 130 [facility] [address] [place] [phone] Follow-up Social History Tobacco Use [...] encounter Miscellaneous Notes * Telephone Encounter - Deepali Ovalles RN - 03/05/2023 0906 EDT Patient called back looking to stop her Plavix related to the rash. She states it has spread since her OV with Carlos on 03/02 and into her vaginal area. It is very itchy. She is encouraged to reach out to PCP to manage symptoms of rash as advised by Carlos. Will review with Carlos the increasing rash. Carlos advises to seek evaluation in ED or Urgent care at least. Spoke with patient, who has not heard from her PCP and is in agreement to reporting to ED at [facility]. * Telephone Encounter - Deepali Ovalles RN - 03/05/2023 0847 EDT Spoke with Joanna regarding results of labs and CXR. She is aware of advice from Carlos regarding rash, she will reach out to her PCP. * Telephone Encounter - Carlos Ha NP - 03/04/2023 1612 EDT Can you let Joanna know I reviewed her labs and they are stable. CXR stable as well. I have not heard back from Dr. Sebastian regarding medications that may be causing rash. I would also like her to reach out to PCP so they can evaluate the rash too documented in this encounter Plan of Treatment Upcoming Encounters Date Type Department Care Team (Late st Contact Info) Description 03/08/2024 9:30 EDT Ancillary Procedure [facility] Cardiology - [facility] [address] [place] [address] 03/08/2024 10:15 EDT Ancillary Procedure [facility] Cardiology [address] [place] [address] 04/05/2024 10:00 EDT Ancillary Procedure [facility] Cardiology Clinic [address] [place] [phone] 04/05/2024 10:00 EDT Office Visit [facility] Cardiology Clinic [address] [place] [phone] Carlos Ha WELDER METAL FAB [address] [place] [phone] documented as of this encounter Visit Diagnoses Not on filedocumented in this encounter Care Teams Bakery Supervisor Relationship Specialty Start Date End Date Bryant Crain MD [address] [place], [place] [phone] PCP - General 05/04/15 05/17/23 Carlos Ha NP [address] [place] [phone] Consulting Clinician Cardiovascular Disease 09/14/21 documented as of this encounter
--- OUTSIDE RECORDS SUMMARY | 2024-01-07 11:11 | XMS_ITS | Encounter Summary ---
Author Organization [facility] Address [address] [place] [address] Care Team Providers Care Nuclear Equipment Design Engineer Name Role Phone Bryant Crain MD Primary Care Provider [phone] Carlos Ha EXTERNAL GRINDER TOOL Unavailable [phone] Reason for Visit * Reason Onset Date Comments Medication Management 04/19/2023 Encounter Details Date Type Department Care Team (Late st Contact Info) Description 04/19/2023 Telephone [facility] - [facility] Cardiology Clinic [address] [place] [address] Carlos Ha, EXTERNAL GRINDER TOOL 130 [facility] [address] [place] [phone] Medication Management Social History Tobacco [...] Telephone Encounter - Fan Schaefer RN - 04/20/2023 0911 EDT Called and reviewed/relayed plan as per Carlos Ha with pt and her . They verbalized understanding and were able to repeat the plan/instructions back to me. Also sent My Chart message with same instructions. * Telephone Encounter - Carlos Ha NP - 04/19/2023 1211 EDT Spoke with patient and her who manages her medications. She continues to have rash on her legs but seems to think it is clearing up. She was seen by her PCP who stopped her Plavix and started Brillinta. She had multiple side effectsand the Brillinta was stopped. She remains off Plavix. We stopped her Jardiance but this was also restarted as they thought they were only supposed to hold it for two weeks. She stopped losartan 04/16 (per records this is listed as an allergy). Recommendations/Plan 1. Stop losartan. Will plan a two week phone follow up. Instructed to call if BP consistently >150/80 2. Continue to hold Plavix for the next two week. If her rash clears off losartan, will plan to restart Plavix as monotherapy. Office will contact patient for two week phone visit 3. Continue Jardiance which was restarted. documented in this encounter Plan of Treatment Upcoming Encounters Date Type Department Care Team (Late st Contact Info) Description 03/08/2024 9:30 EDT Ancillary Procedure [facility] Cardiology - [address] [place], [place] [phone] 03/08/2024 10:15 EDT Ancillary Procedure [facility] Cardiology - [facility] [address] [place] [address] 04/05/2024 10:00 EDT Ancillary Procedure [facility] Cardiology Clinic [address] [place] [phone] 04/05/2024 10:00 EDT Office Visit [facility] Cardiology [address] [address] Carlos Ha NP [address] [place] [phone] documented as of this encounter Visit Diagnoses Not on filedocumented in this encounter Care Teams Nuclear Equipment Design Engineer Relationship Specialty Start Date End Date Bryant Crain MD [address] [place], [place] [phone] PCP - General 05/04/15 05/17/23 Carlos Ha NP [address] [place] [phone] Consulting Clinician Cardiovascular Disease 09/14/21 documented as of this encounter
--- OUTSIDE RECORDS SUMMARY | 2024-01-07 11:11 | XMS_ITS | Encounter Summary ---
Author Organization [facility] Address [address] [place] [address] Care Team Providers Care Cloud Systems Architect Name Role Phone Bryant Crain MD Primary Care Provider [phone] Carlos Ha PRODUCT DEVELOPMENT INTERN Unavailable [phone] Elba Jett MD Primary Care Provider [phone] Encounter Details Date Type Department Care Team (Late st Contact Info) Description 04/16/[address] [facility] Pathology & Laboratory Medicine - [facility] [address] [place] [address] Outr Resulting Lab, Provider Social History Tobacco [...] Info) Description 03/08/2024 9:[address] [facility] Cardiology - [place] [address] [address] [place], [place] [id number] 03/08/2024 10:[address] [facility] Cardiology - [place] [address] [place] [address] 04/05/2024 10:00 EDT Ancillary Procedure [facility] [address] [place] [id number] 04/05/2024 10:00 EDT Office Visit [facility] [address] [place] [address] Carlos Ha NP [address] [place] [address] [place] [phone] documented as of this encounter Procedures Procedure Name Priority Date/Time Associated Diagnosis Comments CALCIUM, URINE 24HR Routine 04/16/2023 8:30 EDT documented in this encounter Results * (ABNORMAL) CALCIUM, URINE 24HR (04/16/2023 8:30 EDT) Calcium, Urine 3.9 See Note mg/dL 04/17/2023 8:13 EDT [facility] Comment: NOTE: Reference range not established Calcium, Urine 24 hr 57(L) 100 - 300 mg/24hr 04/17/2023 8:13 EDT [facility] Comment:Reference range assu mes a normal daily intake of calcium between 600 - 800 mg/day. Urine Volume 1,450 mL 04/17/2023 8:13 EDT [facility] Urine Collection Period 24.0 Hours 04/17/2023 8:13 EDT [facility] Urine 24 HOUR URINE SPECIMEN / Unknown 04/16/2023 8:30 EDT 04/16/2023 22:01 EDT Provider Outr Resulting Lab URINALYSIS O RDERABLES [facility] [address] [place] [address] documented in this encounter Visit Diagnoses Not on filedocumented in this encounter Care Teams Cloud Systems Architect Relationship Specialty Start Date End Date Bryant Crain MD [address] [place] [address] PCP - General 05/04/15 05/17/23 Elba Jett MD [address] [place] [phone] PCP - General Family Medicine - Primary Care 05/18/23 Carlos Ha NP [address] [place] [address] [phone] Consulting Clinician Cardiovascular Disease 09/14/21 documented as of this encounter
--- OUTSIDE RECORDS SUMMARY | 2024-01-07 11:11 | XMS_ITS | Encounter Summary ---
Author Organization [facility] Address [address] [place] [address] Care Team Providers Care Soft Hat Binder Name Role Phone Bryant Crain MD Primary Care Provider [phone] Carlos Ha BODY CARE MANAGER Unavailable [phone] Elba Jett MD Primary Care Provider [phone] Reason for Visit * Reason Onset Date Comments Appointment Related 02/09/2023 Encounter Details Date Type Department Care Team (Late st Contact Info) Description 02/09/2023 Telephone [facility] Cardiology - [address] [place] [address] Randy Sebastian MD [address] [place] [phone] Appointment Related Social History Tobacco Use [...] encounter Miscellaneous Notes * Telephone Encounter - Samaria Mahmood - 02/09/2023 1416 EDT Pt checking in on status of her appointments for a pacemaker and ICD. I didn't see an appropriate referral for this in the system. documented in this encounter Plan of Treatment Upcoming Encounters Date Type Department Care Team (Late st Contact Info) Description 03/08/2024 9:30 EDT Ancillary Procedure [facility] Cardiology - [facility] [address] [place], [place] [phone] 03/08/2024 10:15 EDT Ancillary Procedure [facility] Cardiology - [facility] [place] [address] 04/05/2024 10:00 EDT Ancillary Procedure [facility] Cardiology Clinic [address] [place] [address] 04/05/2024 10:00 EDT Office Visit [facility] Cardiology Clinic [address] [place] [address] Carlos Ha NP [address] [place] [address] [place] [address] documented as of this encounter Visit Diagnoses Not on filedocumented in this encounter Care Teams Soft Hat Binder Relationship Specialty Start Date End Date Bryant Crain MD [address] [place], [place] [id number] PCP - General 05/04/15 05/17/23 Elba Jett MD [facility] [place] [phone] PCP - General Family Medicine - Primary Care 05/18/23 Carlos Ha NP [address] [place] [phone] Consulting Clinician Cardiovascular Disease 09/14/21 documented as of this encounter
--- OUTSIDE RECORDS SUMMARY | 2024-01-07 11:11 | XMS_ITS | Encounter Summary ---
Author Organization [facility] Address [address] [place] [address] Care Team Providers Care Data Conversion Operator Name Role Phone Bryant Crain MD Primary Care Provider [phone] Carlos aH [employer] TANKER DRIVER Unavailable [phone] Reason for Visit * Reason Onset Date Comments Coordination Of Care 02/04/2023 Encounter Details Date Type Department Care Team (Late st Contact Info) Description 02/04/2023 Telephone [facility] Cardiology - [address] [place] [address] Tyrone Burris, RN Coordination Of Care Social History Tobacco Use Types Packs/Day [...] encounter Miscellaneous Notes * Telephone Encounter - Tyrone Burris RN - 02/04/2023 0901 EDT Fax sent to [employer] [phone] for HCM lab request documented in this encounter Plan of Treatment Upcoming Encounters Date Type Department Care Team (Late st Contact Info) Description 03/08/2024 9:30 EDT Ancillary Procedure [facility] Cardiology - [place] [address] [address] [place], [place] [phone] 03/08/2024 10:15 EDT Ancillary Procedure [facility] Cardiology - [address] [place] [address] 04/05/2024 10:00 EDT Ancillary Procedure [facility] Cardiology Clinic [address] [place] [phone] 04/05/2024 10:00 EDT Office Visit [facility] Cardiology Clinic [address] [place] [address] Carlos Ha NP [address] [facility] [address] [place] [address] documented as of this encounter Visit Diagnoses Not on filedocumented in this encounter Care Teams Data Conversion Operator Relationship Specialty Start Date End Date Bryant Crain MD [address] [place], [place] [phone] PCP - General 05/04/15 05/17/23 Carlos Ha NP [address] [place] [phone] Consulting Clinician Cardiovascular Disease 09/14/21 documented as of this encounter
--- OUTSIDE RECORDS SUMMARY | 2024-01-07 11:11 | XMS_ITS | Encounter Summary ---
Author Organization [facility] Address [address] [place] [address] Care Team Providers Care Transplant Immunologist Name Role Phone Brynat Crain MD Primary Care Provider [phone] Carlos Ha PRESS SHOP SUPERVISOR Unavailable [phone] Reason for Referral * Consult (Routine/Next Available) - Authorization Not Required Specialty Diagnoses / Procedures Referred By Charo t Referred To Contact Cardiology Diagnoses Hypertrophic cardiomyopathy ([facility]-CMS) Randy Sebastian MD [address] [place] [phone] [facility] Cardiology [address] [place] [address] [place] [address] Referral ID Status Reason Start Date Expiration Date Visits Requested Visits Authorized [id number] Authorization Not Required Specialty Services Required 01/27/2023 1 1 Question Answer Reason for Request: ICD implant consideration in the setting of hypertrophic cardiomyopathy * Cardiology (Routine/Next Available) - New Request Specialty Diagnoses / Procedures Referred By Contac t Referred To Contact Diagnoses Hypertrophic cardiomyopathy (HCC-CMS) Procedures EKG 12-LEAD Randy Sebastian MD [address] [place] [phone] Referral ID Status Reason Start Date Expiration Date V isits Requested Visits Authorized [id number] New Request 01/27/2023 1 1 Reason for Visit * Reason Comments Cardiomyopathy Hypertrophic cardiom yopathy * Consult (Routine/Next Available) - Specialty Report Received Specialty Diagnoses / Procedures Referred By Contac t Referred To Contact Cardiology Diagnoses Hypertrophic cardiomyopathy (HCC-CMS) Chronic heart failure with preserved ejection fraction (HCC-CMS) ASCVD (arteriosclerotic cardiovascular disease) Ventricular tachycardia (HCC-CMS) Paroxysmal atrial fibrillation (HCC-CMS) Essential hypertension Mixed hyperlipidemia Carlos Ha, RAHEEM [address] [facility] [place] [address] Randy Sebastian MD [address] [place] [address] Referral ID Status Reason Start Date Expiration Date Visits Requested Visits Authorized [id number] Specialty Report Received Specialty Services Required 01/05/2023 1 1 Encounter Details Date Type Department Care Team (Latest Contact Info) Description 01/27/2023 9:30 EDT Office Visit [facility] Cardiology - [address] [place], [place] [phone] Randy Sebastian MD [address] [place] [phone] (HFpEF) heart failure with preserved ejection fraction (HCC-CMS) (Primary Dx); Hypertrophic cardiomyopathy (HCC-CMS); Iron deficiency anemia Social [...] Sign Reading Time Taken Comments Blood Pressure 146/66 01/27/2023 0943 EDT Pulse 68 01/27/2023 0943 EDT Temperature - - Respiratory Rate - - Oxygen Saturation 98% 01/27/2023 0943 EDT Inhaled Oxygen Concentration - - Weight 71.2 kg (157 lb) 01/27/2023 0943 EDT Height - - Body Mass Index 26.95 01/05/2023 1144 EDT documented in this encounter Functional Status [...] as of this encounter Progress Notes * Randy Sebastian MD - 01/27/2023 0930 EDT [facility] Division of Cardiology- Advanced Heart Failure and Transplant Cardiology Dear Bryant Crain We had the pleasure of seeing Joanna Hart at the [facility] Advanced Heart Failure Office today for follow-up evaluation for HFpEF, in the setting of hypertrophic cardiomyopathy, type 2 diabetes, hypertension, recent severe GI bleeding in the setting of Eliquis DOAC use requiring multiple transfusions and severe iron deficiency anemia requiring iron IV repletion. As you know, Joanna Hart is a 72 y.o. female who I have seen in the past for the above-mentioned conditions, most recently when inpatient hospitalized for severe GI bleeding and subsequent hospitalization for ACS type presentation post single-vessel RCA PCI. Post discharge had an event monitor revealing multiple episodes of NSVT. Since discharge, she has been receiving IV iron and overall feels that she is about the same no significant improvement nor worsening. She denies any chest pain, shortness of breath, no lower extremity edema at rest. But she does have significant easy fatigability and significant exertional dyspneawith very minimal exertion such as walking to the bathroom at the parking lot. She completed total of 3 IV iron infusions. Tolerating antithrombotic regimen with Eliquis/Plavix now. Most recent CBC and IV iron studies mid December 2022. GI workup revealed esophagitis/gastritis withno definitive evidence of a GI lesion. Improved with conservative therapy. She has been compliant with her medications. Medications side effects include none Assessment and Plan Joanna Hart is a 72 y.o. year old female who presents for evaluation of hypertrophic cardiomyopathy, HFpEF, type 2 diabetes, hypertension, GI bleeding in the setting of Eliquis use, NSVT on eventmonitor. ACC stage C, NYHA class III. Likely HFpEF etiology in the setting of HCM. Appears euvolemic and compensated on today's exam. Recent LVEF preserved as below. Current GDMT with Jardiance 10 mg daily, losartan 25 mg daily, Aldactone 25 daily, and metoprolol tartrate 12.5 twice daily. Recommend -Repeat NT proBNP and BMP today since on my exam she appears significantly better compared to an inpatient but she is not reporting any symptomatic improvement. F NT proBNP remains unchanged may add a loop diuretic. Otherwise if improving will continue current therapy. Hypertrophic cardiomyopathy Had extensive discussion with her regarding risk of sudden especially concerning findings of MRI with septal thickness more than 17 mm, very high burden of LGE, as well as multiple NSVT episodes on event monitor. Plan to refer to electrophysiology for ICD implant -Genetic testing since she has offsprings and siblings. Will Send for the [place] Genetic test and discussed based on results. Will discussed increasing metoprolol to tartrate to 25 twice daily but unfortunately her heart rateon EKG today with severe bradycardia, ventricular rate is 42. Will hold off until post device implant. Severe iron deficiency anemia Since she completed the 3 planned transfusions. Repeat iron studies as well as CBC today. Randy Sebastian MD Advanced HF and Transplant Vocational Trainer [facility] 01/27/2023 9:51 Medications Prior to Today's Visit Medication Sig ??? acetaminophen (TYLENOL) 650 mg CR tablet 2 tab(s) orally twice a day, only as needed ??? apixaban (ELIQUIS) 5 mg tablet Take 1 Tablet by mouth 2 times daily. ??? BD ULTRA-FINE MICRO PEN NEEDLE 32 gauge x 1/4 needle ??? blood glucose meter by [facility] (non-drug; combo route) route daily. One touch [...] mouth daily. ??? flash glucose scanning reader (Explain My SurgerySTYLE VICKY 2 READER) [facility] 1 Device by [facility] (non-drug; comboroute) route daily. Dispense one reader [...] ??? lancets/blood glucose strips (ONE TOUCH COMBO [facility]) -to test blood sugar - twice daily [...] PENTIPS No facility-administered medications prior to visit. BP (!) 146/66 (BP Cuff Location: Left arm, BP Patient Position: Sitting, BP Cuff Sizes: Adult, regular) Pulse 68 Wt 71.2 kg (157 lb) SpO2 98% BMI 26.95 kg/m?? Body mass index is 26.95 kg/m??. Physical Exam: General appearance: alert, cooperative, NAD Skin: Skin color, temperature, turgor normal. No rashes or lesions Head: Normocephalic, without obvious abnormality, atraumatic Eyes: conjunctivae/corneas clear Nose: Nares normal. Septum midline. Throat/Mouth: moist mucus membranes Neck: supple, symmetrical, trachea midline Lungs: CTAB Heart: Regular and bradycardic, normal S1/S2, no m/r/g Abdomen: soft Back: symmetric. Neurologic: Grossly normal Extremities: no c/c/e Data: I reviewed the ECG obtained 12/2022 My personal interpretation of the ECG Findings:Sinus versus ectopic atrial rhythm, rate 71, LVH. I reviewed the images of the most recent echo obtained 12/11. ??? Left??Ventricle: The left ventricular cavity was normal in [...] flow profile with a normal, non-obstructive pattern. ??? Right??Ventricle: The right ventricular cavity was normal in size. Right ventricular systolic function was normal. There was right ventricular hypertrophy. ??? Left??Atrium: Left atrial cavity was mildly dilated. ??? IVC/SVC: The inferior vena cava was dilated. Event monitor 12/2022 30 day event monitor for HCM ?? Frequent multiform PVCs and 7 nonsustained VT runs, longest 12 consecutive beats ?? Moderately frequent PACs ?? Pt conducts with AV delay and IVCD ?? Cardiac MRI 11/2022 1. 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 The distal apex ([id number]) is concentrically involved by delayed enhancement. Left ventricular ejection fraction is 60% and end diastolic wall mass is approximately 175 g. 2. The distal portion of the left ventricle cavity completely obliterates in systole, however thereis no evidence of abnormal mitral valve motion or left ventricular outflow tract obstruction. 3. Findings compatible with aortic stenosis, gradient is 14 mmHg. Lab Review: Iron studies 12/2022 with severely reduced iron stores and undetectable iron saturation Hemoglobin 9.0 Creatinine 0.9 Potassium 4.3 NT proBNP 3200 Total cholesterol 107 with LDL cholesterol 29 Hemoglobin A1c 7.1% Discussed those results with the patient I reviewed prior notes I spent a total of 40 minutes on the date of this encounter meeting with the patient and reviewing documentation (prior notes, ECG, echocardiographic images, cardiac MRI/discussing potential procedure ICD implant/coordinating care as described in the above note. No procedures were performed at the time of the visit. Randy Sebastian MD 01/27/2023,9:44 documented in this encounter Plan of Treatment Upcoming Encounters Date Type Department Care Team (Late st Contact Info) Description 03/08/2024 9:30 EDT Ancillary Procedure [facility] Cardiology [place] [address] 03/08/2024 10:15 EDT Ancillary Procedure [facility] [place] [address] 04/05/2024 10:[address] [facility] Cardiology Clinic [address] [place] [address] 04/05/2024 10:[address] [facility] Cardiology Clinic [address] [place] [address] Carlos Ha, PRESS SHOP SUPERVISOR [address] [facility] [address] [place] [address] Scheduled Referrals Name Type Priority Associated Diagnoses Order Schedule AMB CONS/FOLLOW UP CARDIAC ELECTROPHYSIOLOGY Outpatient Referral Routine/Next Available Hypertrophic cardiomyopathy (HCC-CMS) Expected: 02/03/2023 (Approximate) , Expires: 01/28/2024 documented as of this encounter Procedures Procedure Name Priority Date/Time Associated Diagnosis Comments ECG REPORT - SCANNED 02/02/2023 16:58 EDT EKG 12-LEAD Routine 01/27/2023 10:07 EDT Hypertrophic cardiomyopathy (HCC-CMS) documented in this encounter Results * ECG REPORT - SCANNED (02/02/2023 16:58 EDT) 02/02/2023 16:5 8 EDT Scan 2 Laboratory Assistant PROCEDURE/MINOR CROW GICAL ORDERABLES * (ABNORMAL) COMPLETE BLOOD COUNT (01/27/2023 16:59 EDT) WBC 7.97 4.00 - 12.40 K/cmm 01/27/2023 17:09 [facility] RBC 4.49 3.86 - 5.04 M/cmm 01/27/2023 17:09 [facility] Hemoglobin 10.5(L) 11.6 - 15.2 g/dL 01/27/2023 17:09 [facility] HCT 36.1 34.9 - 44.4 % 01/27/2023 17:09 [facility] MCV 80(L) 81 - 98 fL 01/27/2023 17:09 [facility] MCH 23.4(L) 26.7 - 33.3 pg 01/27/2023 17:09 [facility] Hypochromia 1+ 01/27/2023 17:09 [facility] MCHC 29.1(L) 32.1 - 35.9 g/dL 01/27/2023 17:09 [facility] RDW-CV 23.9(H) <14.7 % 01/27/2023 17:09 [facility] RDW-SD 68.2(H) <50.4 fl 01/27/2023 17:09 [facility] Anisocytosis 2+ 01/27/2023 17:09 [facility] PLT 419(H) 141 - 377 K/cmm 01/27/2023 17:09 [facility] MPV 10.3 9.5 - 12.7 fL 01/27/2023 17:09 [facility] Blood VENOUS BLOOD / Unknown Venipuncture / Unknown 01/27/2023 16:59 EDT 01/27/2023 17:05 EDT Randy Sebastian MD HEMATOLOGY & PF4 ORD ERABLES [facility] [address] [place] [address] * (ABNORMAL) BASIC METABOLIC PANEL (BMP) (01/27/2023 16:59 EDT) Sodium 138 136 - 145 mmol/L 01/27/2023 17:39 [facility] Potassium 4.6 3.5 - 5.0 mmol/L 01/27/2023 17:39 [facility] Chloride 106 96 - 110 mmol/L 01/27/2023 17:39 [facility] CO2 Total 22 22 - 32 mmol/L 01/27/2023 17:39 [facility] Anion Gap 10 5 - 14 mmol/L 01/27/2023 17:39 [facility] Glucose 222(H) 70 - 99 mg/dl 01/27/2023 17:39 [facility] Calcium 10.8(H) 8.5 - 10.5 mg/dL 01/27/2023 17:39 [facility] BUN 22 10 - 26 mg/dL 01/27/2023 17:39 EDT [facility] Creatinine 1.11(H) 0.52 - 1.04 mg/dL 01/27/2023 17:39 EDT [facility] eGFR 53(L) >60 mL/min/1.73 m2 01/27/2023 17:39 EDT [facility] Blood VENOUS BLOOD / Unknown Venipuncture / Unknown 01/27/2023 16:59 EDT 01/27/2023 17:09 EDT Randy Sebastian MD CHEMISTRY & BLOOD GA S ORDERABLES Performing Organization Address [facility] de Phone Number [facility] [address] [place] [address] * (ABNORMAL) NT PRO BNP (01/27/2023 16:59 EDT) NT-pro BNP 1,360(H) <221 pg/mL 01/27/2023 17:53 EDT [facility] Comment: In the acute setting NT-proBNP values <300 pg/mL have a 98% NPV for excluding acute heart failure. In outpatient populations, NT-proBNP values <125 have a 99% NPV for excluding heart failure. Blood VENOUS BLOOD / Unknown Venipuncture / Unknown 01/27/2023 16:59 EDT 01/27/2023 17:09 EDT Randy Sebastian MD CHEMISTRY & BLOOD GA S ORDERABLES Performing Organization Address [facility] Co de Phone Number [facility] [address] [place] [address] * EKG 12-LEAD (01/27/2023 10:07 EDT) 01/27/2023 10:0 7 EDT Narrative [facility] EKG - 02/02/2023 16:51 EDT ? [facility] ? Test Date: ?2023-01-27 Pat Name: ? JOANNA GAUTAM ?Department: ?? [facility] ? Room: ? Gender: ? Female ? Spa Director: ?? [id number] : ?1950 ? Requested By: ASIA WALTON A Order Number: [id number] ? Reading MD: ?? YASH CHAVEZ MD ? Measurements Intervals ?[place] ? Rate: ? 42 ? P: ?-59 CA: ? 280 ?QRS: ?-29 QRSD: ? 118 ?T: ?156 QT: ? 460 ? QTc: ?389 ? Interpretive Statements sinus rhythm with second degree heart block mobitz type 1 left ventrICULAR HYPERTROPHY AND ST-T CHANGE POSSIBLE SEPTAL MYOCARDIAL INFARCTION , OF INDETERMINATE AGE Compared to ECG 01/05/2023 11:55:32 2nd degree heart block is now present ST (T wave) deviation now present Myocardial infarct finding now present Early repolarization no longer present I reviewed the tracing and have either agreed or edited the findings in this report. Electronically Signed On 02-02-2023 16:51:51 EDT by YASH CHAVEZ MD. Procedure Note Yash Chavez MD - 02/02/2023 [facility] Test Date: 2023-01-27 Pat Name: JOANNA HART Department: [facility] Room: Gender: Female Spa Director: [id number] : 1950 Requested By: ASIA Ovalles Order Number: [id number] Reading MD: YASH CHAVEZ MD Measurements Intervals [place] Rate: 42 P: -59 CA: 280 QRS: -29 QRSD: 118 T: 156 QT: 460 QTc: 389 Interpretive Statements sinus rhythm with second degree heart block mobitz type 1 left ventrICULAR HYPERTROPHY AND ST-T CHANGE POSSIBLE SEPTAL MYOCARDIAL INFARCTION , OF INDETERMINATE AGE Compared to ECG 01/05/2023 11:55:32 2nd degree heart block is now present ST (T wave) deviation now present Myocardial infarct finding now present Early repolarization no longer present I reviewed the tracing and have either agreed or edited the findings inthis report. Electronically Signed On 02-02-2023 16:51:51 EDT by YASH FELICIANO. Randy Sebastian MD CARDIAC ECG ORDERABL ES [facility] EKG documented in this encounter Visit Diagnoses Diagnosis (HFpEF) heart failure with preserved ejection fraction (HCC-CMS)- Primary Heart failure, unspecified Hypertrophic cardiomyopathy (HCC-CMS) Other hypertrophic cardiomyopathy Iron deficiency anemia Iron deficiency anemia, unspecified documented in this encounter Care Teams Transplant Immunologist Relationship Specialty Start Date End Date Bryant Crain MD [address] [place], [place] [phone] PCP - General 05/04/15 05/17/23 Carlos Ha NP [address] [place] [address] [address] [place] [address] Consulting Clinician Cardiovascular Disease 09/14/21 documented as of this encounter
--- OUTSIDE RECORDS SUMMARY | 2024-01-07 11:11 | XMS_ITS | Encounter Summary ---
Author Organization [facility] Address [address] [place] [address] Care Team Providers Care Director Of Science Name Role Phone Bryant Crain MD Primary Care Provider [phone] Carlos Ha UNIVERSITY LIBRARIAN Unavailable [phone] Reason for Visit * Reason Comments Heart Problem * Consult (Routine/Next Available) - Authorization Not Required Specialty Diagnoses / Procedures [facility] Contact Cardiology Diagnoses Hypertrophic cardiomyopathy (HCC-CMS) Randy Sebastian MD [address] [place] [address] [facility] [address] Referral ID Status Reason Start Date Expiration Date Visits Requested Visits Authorized [id number] Authorization Not Required Specialty Services Required 01/27/2023 1 1 Encounter Details Date Type Department Care Team (Late st Contact Info) Description 02/16/2023 10:20 EDT Office Visit [facility] Cardiology - [place] [address] [place] [address] Lefty Moss MD [address] [facility] [address] [place] [address] Hypertrophic cardiomyopathy (HCC-CMS) (Primary Dx); PAF (paroxysmal atrial fibrillation) (HCC-CMS) Social History Tobacco Use Types Packs/Day [...] Sign Reading Time Taken Comments Blood Pressure 134/62 02/16/2023 1014 EDT Pulse 65 02/16/2023 1014 EDT Temperature - - Respiratory Rate - - Oxygen Saturation 98% 02/16/2023 1014 EDT Inhaled Oxygen Concentration - - Weight 68.9 kg (152 lb) 02/16/2023 1014 EDT Height - - Body Mass Index 26.09 01/27/2023 1555 EDT documented in this encounter [...] as of this encounter Progress Notes * Lefty Moss MD - 02/16/2023 1020 EDT Cardiology New Patient Visit 08/29/23 This consultation was requested by Randy Sebastian [...] this visit: Hypertrophic cardiomyopathy (HCC-CMS) ([facility]) - CASE REQUEST EP LAB - CASE REQUEST EP LAB PAF (paroxysmal atrial fibrillation) (HCC-CMS) ([facility]) - CASE REQUEST EP LAB - CASE [...] History: Diagnosis Date ??? Cerebrovascular accident (CVA) (HCC-CMS) 06/01/2019 ??? Diabetes mellitus, type 2 (HCC-CMS) 01/26/2011 On metformin On metformin ??? Essential hypertension 06/01/2019 ??? Mixed hyperlipidemia 06/05/2019 ??? Nonrheumatic aortic valve stenosis 06/01/2019 ??? Paroxysmal atrial fibrillation (HCC-CMS) ([facility]) 06/01/2019 No past surgical history on file. [...] ??? Propoxyphene N-Acetaminophen Other reaction(s): Hallucinations ??? Dsewuik-Tmt-Fgg Reductase Inhibitors ??? Trulicity [Dulaglutide] Gi Side [...] glucose scanning reader (FREESTYLE VICKY 2 READER) misc, 1 Device by misc (non-drug; combo route) route daily. Dispense one reader ??? FREESTYLE VICKY 2 SENSOR kit, USE 1 SENSOR EVERY [...] the above note. documented in this encounter Plan of Treatment Upcoming Encounters Date Type Department Care Team (Late st Contact Info) Description 03/08/2024 9:30 EDT Ancillary Procedure [facility] Cardiology - [place] [address] [place] [id number] 03/08/2024 10:15 EDT Ancillary Procedure [facility] Cardiology - [facility] [address] [place], [place] [id number] 04/05/2024 10:00 EDT Ancillary Procedure [facility] Cardiology Clinic [address] [place] [id number] 04/05/2024 10:00 EDT Office Visit [facility] Cardiology Clinic [address] [place] [address] Carlos Ha NP [address] [place] [phone] documented as of this encounter Visit Diagnoses Diagnosis Hypertrophic cardiomyopathy (HCC-CMS)- Primary Other hypertrophic cardiomyopathy PAF (paroxysmal atrial fibrillation) (HCC-CMS) Atrial fibrillation documented in this encounter Orders Case Request Count Last Ordered Date First Orde red Date CASE REQUEST EP LAB 1 02/16/2023 documented in this encounter Care Teams Director Of Science Relationship Specialty Start Date End Date Bryant Crain MD [address] [place], [place] [phone] PCP - General 05/04/15 05/17/23 Carlos Ha NP [address] [place] [address] [phone] Consulting Clinician Cardiovascular Disease 09/14/21 documented as of this encounter
--- OUTSIDE RECORDS SUMMARY | 2024-01-07 11:11 | XMS_ITS | Encounter Summary ---
Author Organization [facility] Address [address] [place] [address] Care Team Providers Care Charge Entry Clerk Name Role Phone Bryant Crain MD Primary Care Provider [phone] Carlos Ha BRANCH DIRECTOR Unavailable [phone] Reason for Visit * Reason Comments Pacemaker/Device Check medtronic Encounter Details Date Type Department Care Team (Late st Contact Info) Description 03/31/2023 14:30 EDT Office Visit [facility] Cardiology Clinic [address] [place] [address] Carlos Ha, BRANCH DIRECTOR [address] [facility] [address] [place] [address] Cryptogenic stroke (HCC-CMS) (Primary Dx) Social History Tobacco Use [...] Sign Reading Time Taken Comments Blood Pressure 134/72 03/31/2023 1431 EDT Pulse 61 03/31/2023 1431 EDT Temperature - - Respiratory Rate - - Oxygen Saturation 96% 03/31/2023 143 EDT Inhaled Oxygen Concentration - - Weight 73.1 kg (161 lb 3.2 oz) 03/31/2023 143 E DT Height 162.6 cm (5' 4) 03/31/2023 1431 EDT Body Mass Index 27.67 03/31/2023 1431 EDT documented in this encounter [...] No 03/15/2023 documented as of this encounter Patient Instructions * Patient Instructions* Carlos aH NP - 03/31/2023 14:30 EDT HOLD LOSARTAN 50 MG FOR TWO WEEKS documented in this encounter Progress Notes * Carlos Ha NP - 03/31/2023 1430 EDT CC: Pacemaker/Device Check (medtronic) HPI: This is a pleasant 72-year-old female [...] but was cancelled as she presented to [facility] ED on the day it was scheduled. She presented to [facility] on with complaints of fatigue, chest tightness, [...] and octreotide. She was then transferred to [facility]. Repeat EDG showed esophagitis, scattered petechia [...] in for NSTEMI. She was transferred to [facility] for LHC 12/08/2022 with severe single vessel coronary artery disease for which she underwent PCI with MADONNA to RCA (90% proximal lesion). Residual disease includes p Ramus 80%, mLCX 50%. She was sent home on clopidogrel, jardiance, losartan, and spironolactone. Cardiac MRI completed 12/04 demonstrated severe, concentric thickening of the left ventricle with complete obliteration of left ventricle during systole. INTERIM HISTORY Post Bi-V ICD implant (RA to RAA, RV to Bundle of HIS, LV to RV apical septum) on 03/15/2023 She reports improvement in her SOB and activity tolerance and notes this happened as soon as pacer was implanted Her weights are stable. No CP, orthopnea, PND, or syncope. Continues to complain of generalized pruritis with maculopapular rash on arms, legs, chest, and back. She was seen by her PCP who stopped Jardiance. She has been off for the last two weeks and has not noted any improvement in Rash symptoms other then she has been happy not to have as much urine frequency PMH Cryptogenic stroke (left MCA) 2017 with Medtronic loop 2016. ASA recently started during admission at [facility] 08/2022 Paroxysmal atrial fibrillation (2 hr episode noted on monitor 2018.Started on Eliquis. No further episodes noted) NSVT (1 episode August 2019 with negative MPI) AVB type I and II - noted on panel monitor during recent admission Hypertension, Hyperlipidemia (LDL 65 in 2021: She has been intolerant to multiple statins now on REPATHA) DM2 (A1C 7.1) CKD III Kidney stone 11/02 passed Duodenal ulcer and esophagitis with acute GIB admit to [facility] 11/11-11/14. D/C on Protonix. ?Parkinson's Disease HCM -septal thickness 17 mm with very high burden LGE on MRI, epsides of NSVT. SH Lives in [place] with spouse Has three grown children She [...] 1/4 needle ??? blood glucose meter by [facility] (non-drug; combo route) route daily. One touch [...] glucose scanning reader (FREESTYLE VICKY 2 READER) misc 1 Device by [facility] (non-drug; comboroute) route daily. Dispense one reader [...] ??? lancets/blood glucose strips (ONE TOUCH COMBO [facility]) -to test blood sugar [...] ??? Propoxyphene N-Acetaminophen Other reaction(s): Hallucinations ??? Bdrqqzh-Aeg-Cin Reductase Inhibitors ??? Trulicity [Dulaglutide] Gi Side effect ROS: The rest of the pertinent 10 point review of systems is negative other than mentioned in the HPI PHYSICAL EXAM: Vitals: 03/31/23 1431 BP: 134/72 BP Cuff Location: Right arm BP Patient Position: Sitting BP Cuff Sizes: Adult, regular Pulse: 61 SpO2: 96% Weight: 73.1 kg (161 lb 3.2 oz) Height: 162.6 cm (64) GENERAL APPEARANCE: [...] EXAM: Alert and oriented x3. Gait normal [facility] Cardiology Device Visit One Piece Expansion Maker Hand: Medtronic Device Type: Multiple JEWELRY SALES REPRESENTATIVE-D Service: Office Visit Implant Date: 03/15/2023 Indication: AVB HCM Battery Longevity: 7.8 years Underlying rhythm: sinus bradycardia with intermittent AVB Mode: DDD URL/LRL: 60/130 bpm Atrial Paced: 19.5% Ventricle Paced: 97.5% (RV to HIS bundle; LV to RV apical septum) Lead Impedance, threshold, and sensing testing all within normal parameters. (See scanned documentation associated with this visit for full details) There were: no alerts AMS: none AF burden: none AT/AF: Patient is taking daily Eliquis Pacer Incision: CDI, well approximated and without erythema/tenderness/drainage DATA: NM PET 12/07/2022 ??? Perfusion: There [...] dilation (TID) with a value of 1.4 [facility] 12/08/2022 CORONARY ARTERIES: The coronary circulation [...] from base to apex. The distal apex ([id number]) is concentrically involved by delayed enhancement. Left [...] 90% stenosis of RCA found on angiography. [facility] completed 12/08/22 with successful RCA stenting. -Tolerating Plavix. ASA discontinued while on Eliquis (hx of GIB due to esophagitis requiring transfusion) -Continue BB and Repatha -Reports feeling clinically improved. Will plan to refer back to Cardiac Rehab 2. HCM severe asymmetric hypertrophy of LV with septal thickness 1.7 cm. -Follow up with Dr. Sebastian 05/18/2023 -Genetic testing pending -Low dose BB. Will monitor an can up titrate as needed given pacer implant. 3. NSVT. -Medtronic Bi-V ICD implant. No [...] GI blood loss 12. ? Drug rash -new medications clopidogrel (since November) Jardiance- off for two weeks no improvement in rash Spironolactone - Losartan - mentioned as allergy in records since 2019. Plan to have her stop for two weeks and follow up. Will do chart review. -other possibility akira but she has been on this buttermaker helper I spent a total of 40 minutes [...] Info) Description 03/08/2024 9:30 EDT Ancillary Procedure [facility] Cardiology - [address] [place] [phone] 03/08/2024 10:15 EDT Ancillary Procedure [facility] Cardiology [address] [place], [place] [phone] 04/05/2024 10:00 EDT Ancillary Procedure [facility] Cardiology Clinic [address] [place] [phone] 04/05/2024 10:00 EDT Office Visit [facility] Cardiology Clinic [address] [place] [address] Carlos Ha NP [address] [place] [phone] documented as of this encounter Visit Diagnoses Diagnosis Cryptogenic stroke ([facility])- Primary Unspecified cerebral artery occlusion with cerebral infarction documented in this encounter Care Teams Charge Entry Clerk Relationship Specialty Start Date End Date Bryant Crain MD [address] [place], [place] [phone] PCP - General 05/04/15 05/17/23 Carlos Ha NP [address] [place] [phone] Consulting Clinician Cardiovascular Disease 09/14/21 documented as of this encounter
--- OUTSIDE RECORDS SUMMARY | 2024-01-07 11:11 | XMS_ITS | Encounter Summary ---
Author Organization [facility] Address [address] [place] [address] Care Team Providers Care Park Ranger Name Role Phone Bryant Crain MD Primary Care Provider Carlos Ha OVEN LABORER Unavailable [phone] Reason for Visit * Reason Onset Date Comments Coordination Of Care 03/25/2023 Follow-up 03/25/2023 Encounter Details Date Type Department Care Team (Late st Contact Info) Description 03/25/2023 Telephone [facility] Cardiology - [address] [place] [address] Randy Sebastian MD [address] [place] [phone] Coordination Of Care; Follow-up Social History Tobacco Use Types Packs/Day [...] encounter Miscellaneous Notes * Telephone Encounter - Donell Johnson RN - 03/25/2023 1209 EDT Images from the original note were not included. Equipment Monitor Phototypesetting reaching out to Justin at [facility] regarding whether patient requires prophylactic antibiotics. Equipment Monitor Phototypesetting relayed that patient does not require this. They are pleased with this and state not having further questions. No barriers to learning were identified. Randy Sebastian MD You 10 minutes ago (11:56) No antibiotic indication Thanks Donell * Telephone Encounter - Randy Sebastian MD - 03/25/2023 1156 EDT No antibiotic indication Thanks Donell * Telephone Encounter - Niharika Boyle - 03/25/2023 0832 EDT [facility] Calling because patient needs to have dental procedure completed but dentist would like to know if patient should/can be provided antiobiotics before dental visit/procedure? Please contact and advise documented in this encounter Plan of Treatment Upcoming Encounters Date Type Department Care Team (Late st Contact Info) Description 03/08/2024 9:30 EDT Ancillary Procedure [facility] Cardiology - [address] [place] [address] 03/08/2024 10:15 EDT Ancillary Procedure [facility] Cardiology - [address] [place] [address] 04/05/2024 10:00 EDT Ancillary Procedure [facility] Cardiology Clinic [address] [place] [phone] 04/05/2024 10:00 EDT Office Visit [facility] Cardiology Clinic [address] [place] [phone] Carlos Ha, RAHEEM [address] [place] [phone] documented as of this encounter Visit Diagnoses Not on filedocumented in this encounter Care Teams Park Ranger Relationship Specialty Start Date End Date Bryant Crain MD [address] [place], [place] [phone] PCP - General 05/04/15 05/17/23 Carlos Ha NP [address] [place] [phone] Consulting Clinician Cardiovascular Disease 09/14/21 documented as of this encounter
--- OUTSIDE RECORDS SUMMARY | 2024-01-07 11:11 | XMS_ITS | Encounter Summary ---
Author Organization [facility] Address [address] [place] [address] Care Team Providers Care Physical Security Manager Name Role Phone Bryant Crain MD Primary Care Provider [phone] Carlos Ha EXPANDED FUNCTION DENTAL ASSISTANT Unavailable [phone] Reason for Visit * Reason Onset Date Comments Prior Auth, Other (i.e. radiology, etc.) 023 Encounter Details Date Type Department Care Team (Late st Contact Info) Description 03/03/2023 Telephone [facility] Cardiology - [place] [address] Lefty Moss MD [address] [facility] 1 [place] [address] Prior Auth, Other (i.e. radiology, etc.) Social History Tobacco Use Types Packs/Day Years [...] encounter Miscellaneous Notes * Telephone Encounter - Lili Schaffer RN - 03/03/2023 1324 EDT I let LM to let Joanna know that her ICD was approved. * Telephone Encounter - Kinza Metcalf - 03/03/2023 1046 EDT FYI: Trista, with [facility] Appeals Dept, is providing information for JALEN Pearson, that thethere has been a prior auth approval issued for a cardiac implant device, approval # [id number]. Per caller, the approval is valid from today, 03/03/23 too 04/17/23. Per caller, she will send a fax with the approval information to the attention of RN. documented in this encounter Plan of Treatment Upcoming Encounters Date Type Department Care Team (Late st Contact Info) Description 03/08/2024 9:30 EDT Ancillary Procedure [facility] Cardiology [place] [address] 03/08/2024 10:15 EDT Ancillary Procedure [facility] Cardiology [place] [address] 04/05/2024 10:00 EDT Ancillary Procedure [facility] Cardiology Clinic [address] [place] [phone] 04/05/2024 10:00 EDT Office Visit [facility] Cardiology Clinic [address] [place] [address] Carlos Ha NP [address] [place] [phone] documented as of this encounter Visit Diagnoses Not on filedocumented in this encounter Care Teams Physical Security Manager Relationship Specialty Start Date End Date Bryant Crain MD [address] [place], [place] [phone] PCP - General 05/04/15 05/17/23 Carlos Ha NP [address] [place] [phone] Consulting Clinician Cardiovascular Disease 09/14/21 documented as of this encounter
--- OUTSIDE RECORDS SUMMARY | 2024-01-07 11:12 | XMS_ITS | Encounter Summary ---
Author Organization [facility] Address [address] [place] [address] Care Team Providers Care Wool Supplier Name Role Phone Bryant Crain MD Primary Care Provider [phone] Carlos Ha MILKING MACHINE MECHANIC Unavailable [phone] Reason for Visit * Reason Onset Date Comments Hospital Discharge Follow Up 12/24/2022 Encounter Details Date Type Department Care Team (Late st Contact Info) Description 12/24/2022 Telephone [facility] [address] [place] [address] Chandni Alcala, RN [address] [place] [address] Hospital Discharge Follow Up Social History Tobacco Use Types Packs/Day Years [...] 10:00 EST Sexual Orientation Not on file COVID-19 Exposure Response Date Recorded In the last 10 days, have yo u been in contact with someone who was confirmed or suspected to have Coronavirus/COVID-19? No / Unsure 12/01/2022 12:27 EDT documented as of this encounter Functional Status [...] encounter Miscellaneous Notes * Telephone Encounter - Chandni Alcala RN - 12/24/2022 1450 EDT Images from the original note were not included. 1) How have you been feeling since you've been discharged? Increased Fatigue (Decreased Activity Tolerance) ------- Review Typical HF symptoms with patient -------- 2) When you were discharged, did you understand the medications prescribed for you? yes 3) Were you able to obtain all of your medications from your pharmacy? Yes 4) Let's review the medications you are taking at home. (Compare the patient's reported meds (pill bottles) against the AVS in chart review Focus review onnew meds and cardiac medications.) Discharge Medications Accurate as of December 24, 2022 14:50. If you have any questions, ask your nurse or doctor. CONTINUE Sig acetaminophen 650 mg CR tablet Refills: 0 Commonly known as: TYLENOL 2 tab(s) orally twice a day, only as needed apixaban 5 mg tablet Refills: 0 Commonly known as: Eliquis Take 1 Tablet by mouth 2 times daily. blood glucose meter Refills: 0 by misc (non-drug; combo route) route daily. One touch verio meter or best covered by insurance. Quantity: 1 Each cetirizine 10 mg tablet Refills: 0 Commonly known as: ZYRTEC Take 1 Tablet by mouth daily. Cholecalciferol (Vitamin D3) 10 mcg (400 unit) tablet Refills: 0 Take 1 Tablet by mouth daily. clopidogreL 75 mg tablet Refills: 3 Commonly known as: PLAVIX Take 1 Tablet by mouth daily. Quantity: 90 Tablet cyanocobalamin 500 mcg tablet Refills: 0 Commonly known as: VITAMIN B-12 Take 1 Tablet by mouth daily. empagliflozin 10 mg tablet Refills: 2 Commonly known as: JARDIANCE Take 1 Tablet by mouth daily. Quantity: 30 Tablet FreeStyle Lo 2 [place] misc Refills: 0 Generic drug: flash glucose scanning reader 1 Device by mis (non-drug; combo route) route daily. Dispense one reader Quantity: 1 Each FreeStyle Lo 2 Sensor kit Refills: 3 Generic drug: flash glucose sensor USE 1 SENSOR EVERY 14 DAYS Quantity: 6 Kit gabapentin 300 mg capsule Refills: 0 Commonly known as: NEURONTIN Take 2 Capsules by mouth 2 times daily. HumaLOG KwikPen Insulin 100 unit/mL injectable pen Refills: 0 Generic drug: insulin lispro 100-150 1 unit, 150-200 2 units, 200-250 3 units, 250-300 4 units lactobacillus combination no.8 3 billion cell capsule Refills: 0 Take 1 Capsule by mouth daily. Lantus Solostar U-100 Insulin 100 unit/mL (3 mL) injection pen Refills: 0 Generic drug: insulin glargine Inject 31 Units into the skin daily. losartan 25 mg tablet Refills: 3 Commonly known as: COZAAR Take 1 Tablet by mouth at bedtime. Quantity: 90 Tablet magnesium oxide 400 mg (241.3 mg magnesium) tablet Refills: 0 Commonly known as: MAG-OX Take 1 Tablet by mouth daily. metFORMIN 750 mg ER tablet Refills: 0 Commonly known as: GLUCOPHAGE-XR Take 1 Tablet by mouth 2 times daily. metoprolol TARtrate 25 mg tablet Refills: 0 Commonly known as: LOPRESSOR Take 0.5 Tablets by mouth daily. ONE TOUCH COMBO MISC Refills: 0 -to test blood sugar - twice daily OneTouch Ultra Blue Test Strip test strips Refills: 0 Generic drug: blood glucose TEST BLOOD GLUCOSE THREE TIMES DAILY Ozempic 1 mg/dose (4 mg/3 mL) pen injector Refills: 0 Generic drug: semaglutide Inject 0.75 mL into the skin once a week. Sundays pantoprazole 40 mg tablet Refills: 0 Commonly known as: PROTONIX Take 1 Tablet by mouth 2 times daily. Quantity: 120 Tablet Repatha Syringe 140 mg/mL syringe Refills: 0 Generic drug: evolocumab INJECT 1 SYRINGE SUBCUTANEOUSLY EVERY 2 WEEKS spironolactone 25 mg tablet Refills: 3 Commonly known as: ALDACTONE Take 0.5 Tablets by mouth daily. Quantity: 45 Tablet * Unifine Pentips Refills: 0 Generic drug: insulin pen needles 32G x * BD Ultra-Fine Micro Pen Needle 32 gauge x /4 needle Refills: 0 Generic drug: Insulin [place] (Disposable) * This list has 2 medication(s) that are the same as other medications prescribed for you. Read thedirections carefully, and ask your doctor or other care provider to review them with you. Medication Review Findings: Medications correctly match current list and patient is following medication list 5) Can you tell me which of your medications are for heart failure? Pt's sets up her meds. Current heart failure meds reviewed with pt 6) Are you following a low sodium diet? Can you describe your diet plan to me? Yes - Patient able to articulate plan. 7) Did you get dressed this morning and was it easier for you than before your last hospital admission? Yes 8) Please describe your level of activity over the past few days when you've been home. Activity level acceptable (unchanged or improving from time of discharge). Reports increase in fatigue, but is able to perform adls 9) Let's review your doctor's name, number, and your return appointment information. Upcoming Appointments Dec 29, 2022 11:00 (Arrive by 10:45) Office Visit Medium with Carlos Ha NP [facility] (--) [address] [facility] [address] Patient has understanding of their appointments. 10) Do you have a scale at home to weight yourself? yes 11) Did you weigh yourself this morning? Yes, weight was 152lb. Date taken: this am 12) How do you plan to track your weights? Patient has a plan and is logging weights 13) Just to recap, can you tell me under what circumstances you'll call your doctor? Review with patient when to call doctor: > Weight Gain > Shortness of Breath > Loss of Appetite/Not Eating Well > Difficulty Sleeping > Decreased Activity Tolerance > Edema (Swelling) in legs, feet, or stomach Patient is able to verbalize when they should call their doctor. 14) What questions or concerns do you have that we've not discussed? Patient has no further questions or concerns at this time. documented in this encounter Plan of Treatment Upcoming Encounters Date Type Department Care Team (Late st Contact Info) Description 03/08/2024 9:30 EDT Ancillary Procedure [facility] Cardiology - [facility] [address] [place] [id number] 03/08/2024 10:15 EDT Ancillary Procedure [facility] Cardiology - [facility] [address] [place] [id number] 04/05/2024 10:00 EDT Ancillary Procedure [facility] [address] [place] [id number] 04/05/2024 10:00 EDT Office Visit [facility] [address] [place] [id number] Carlos Ha NP [address] [place] [phone] documented as of this encounter Visit Diagnoses Not on filedocumented in this encounter Care Teams Wool Supplier Relationship Specialty Start Date End Date Bryant Crain MD [address] [place], [place] [id number] PCP - General 05/04/15 05/17/23 Carlos Ha NP [address] [place] [phone] Consulting Clinician Cardiovascular Disease 09/14/21 documented as of this encounter
--- OUTSIDE RECORDS SUMMARY | 2024-01-07 11:12 | XMS_ITS | Encounter Summary ---
Author Organization [facility] Address [address] [place] [address] Care Team Providers Care Upholsterer Inside Name Role Phone Bryant Crain MD Primary Care Provider [phone] Carlos Ha BULLET ASSEMBLY PRESS OPERATOR Unavailable [phone] Reason for Visit * Reason Onset Date Comments Hospital Discharge Follow Up 12/11/2022 Encounter Details Date Type Department Care Team (Late st Contact Info) Description 12/11/2022 Telephone [facility] - [facility] [address] [place] [address] Roger Vizcarra [facility] Hospital Discharge Follow Up Social History Tobacco [...] encounter Miscellaneous Notes * Telephone Encounter - Zackery Roger, [facility] - 12/11/2022 1403 EDT Images from the original note were not included. Transition of Care Pharmacist Note: Discharge Phone Call Spoke with Mr. Hart today (manages 's medications) re: patient. Overall, he reported she was doing fairly well - we reviewed her new medication regimen together and they had no other questions.Joanna has her PCP appointment scheduled for December [address] Crain. 1) How have you been feeling since you've been discharged? No symptoms of Concern - Patient is feeling well 2) When you were discharged, did you understand the medications prescribed for you? Yes 3) Were you able to obtain all of your medications from your pharmacy? Yes 4) Let's review the medications you are taking at home. (Compare the patient's reported meds (pill bottles) against the AVS in chart review Focus review onnew meds and cardiac medications.) Discharge Medications Accurate as of December 11, 2022 14:06. If you have any questions, ask your nurse or doctor. CONTINUE Sig acetaminophen 650 mg CR tablet Refills: 0 Commonly known as: TYLENOL 2 tab(s) orally twice a day, only as needed apixaban 5 mg tablet Refills: 0 Start taking on: December 16, 2022 Commonly known as: Eliquis Take 1 Tablet by mouth 2 times daily. aspirin 81 mg EC tablet Refills: 0 Take 1 Tablet by mouth daily for 7 days. Quantity: 7 Tablet blood glucose meter Refills: 0 by misc [...] daily. Quantity: 30 Tablet FreeStyle Lo 2 [place] misc Refills: 0 Generic drug: flash glucose scanning reader 1 Device by misc (non-drug; combo route) [...] Generic drug: insulin pen needles 32G x 5/32 * BD Ultra-Fine Micro Pen Needle 32 gauge x 1/4 needle Refills: 0 Generic drug: Insulin [place] (Disposable) * This list has 2 medication(s) that are the same as other medications prescribed for you. Read thedirections carefully, and ask your doctor or other care provider to review them with you. Medication Review Findings: Medications correctly match current list and patient is following medication list 5) Can you tell me which of your medications are for heart failure? Yes - Patient is knowledgable about their medications 6) Are you following a low sodium [...] acceptable (unchanged or improving from time of discharge) 9) Let's review your doctor's name, number, and your return appointment information. Upcoming Appointments Dec 29, 2022 11:00 (Arrive by 10:45) Office Visit Medium with Carlos Ha NP [facility] (--) [address] [facility] [address] Patient has understanding of their appointments. 10) Do you have a scale at home to weight yourself? Yes 11) Did you weigh yourself this morning? Yes, weight was 148 lbs. Date taken: 12/11 12) How do you plan to track [...] Info) Description 03/08/2024 9:30 EDT Ancillary Procedure [facility] Cardiology [address] [place], [place] [id number] 03/08/2024 10:15 EDT Ancillary Procedure [facility] [address] [place], [place] [id number] 04/05/2024 10:00 EDT Ancillary Procedure [facility] [address] [place] [id number] 04/05/2024 10:00 EDT Office Visit [facility] [address] [place] [address] [id number] Carlos Ha NP [address] [phone] documented as of this encounter Visit Diagnoses Not on filedocumented in this encounter Care Teams Upholsterer Inside Relationship Specialty Start Date End Date Bryant Crain MD [address] [place], [place] [id number] PCP - General 05/04/15 05/17/23 Carlos Ha NP [address] [place] [address] [phone] Consulting Clinician Cardiovascular Disease 09/14/21 documented as of this encounter
--- OUTSIDE RECORDS SUMMARY | 2024-01-07 11:12 | XMS_ITS | Encounter Summary ---
Author Organization [facility] Address [address] [place] [address] Care Team Providers Care Central Supply Tech Name Role Phone Bryant Crain MD Primary Care Provider [phone] Carlos Ha SEAMER Unavailable [phone] Elba Jett MD Primary Care Provider [phone] Reason for Visit * Reason Onset Date Comments Appointment Related 01/05/2023 Encounter Details Date Type Department Care Team (Late st Contact Info) Description 01/05/2023 Telephone [facility]iology - [address] [address] Edgardo Ha MD [address] [place] [address] [address] [place] [address] Appointment Related Social History Tobacco Use Types [...] encounter Miscellaneous Notes * Telephone Encounter - Sabrina Herring MA - 01/06/2023 1149 EDT Images from the original note were not included. Carlos Ha, SEAMER Sabrina Herring MA Can you follow up with Dr. Sebastian's staff to have them schedule her in the next 2 weeks or so Thanks, Carlos Gonzalez called and spoke with Dr. Sebastian directly about seeing patient in the next two weeks. Forwarding msg from Carlos about scheduling. * Telephone Encounter - Earl Miles - 01/05/2023 1121 EDT Sabrina at [facility] called concerning Urgent ref just sent for this pt to be seen. They req we contact the pt. Please advise documented in this encounter Plan of Treatment Upcoming Encounters Date Type Department Care Team (Late st Contact Info) Description 03/08/2024 9:30 EDT Ancillary Procedure [facility] [place] [address] 03/08/2024 10:15 EDT Ancillary Procedure [facility] - [address] [place] [address] 04/05/2024 10:00 EDT Ancillary Procedure [facility] [address] [place] [id number] 04/05/2024 10:00 EDT Office Visit [facility] [address] [place] [address] Carlos Ha, SEAMER [address] [place] [phone] documented as of this encounter Visit Diagnoses Not on filedocumented in this encounter Care Teams Central Supply Tech Relationship Specialty Start Date End Date Bryant Crain MD [address] [place] [address] PCP - General 05/04/15 05/17/23 Elba Jett MD [address] [place] [phone] PCP - General Family Medicine - Primary Care 05/18/23 Carlos Ha, SEAMER [address] [place] [phone] Consulting Clinician Cardiovascular Disease 09/14/21 documented as of this encounter
--- OUTSIDE RECORDS SUMMARY | 2024-01-07 11:12 | XMS_ITS | Encounter Summary ---
Author Organization [facility] Address [address] [place] [address] Care Team Providers Care School Supervisor Name Role Phone Braynt Crain MD Primary Care Provider [phone] Carlos Ha HEAD OF PHYSICS Unavailable [phone] Reason for Referral * Cardiology (Routine/Next Available) - New Request Specialty Diagnoses / Procedures Referred By Contac t Referred To Contact Diagnoses Ventricular tachycardia (HCC-CMS) Procedures EKG 12-LEAD Carlos Ha NP [address] [facility] [address] [address] Referral ID Status Reason Start Date Expiration Date V isits Requested Visits Authorized [id number] New Request 01/05/2023 1 1 * Consult (Routine/Next Available) - Specialty Report Received Specialty Diagnoses / Procedures Referred By Contac t Referred To Contact Cardiology Diagnoses Hypertrophic cardiomyopathy (HCC-CMS) Chronic heart failure with preserved ejection fraction (HCC-CMS) ASCVD (arteriosclerotic cardiovascular disease) Ventricular tachycardia (HCC-CMS) Paroxysmal atrial fibrillation (HCC-CMS) Essential hypertension Mixed hyperlipidemia Carlos Ha NP [address] [facility] [address] [place] [address] Randy Sebastian MD [address] [place] [phone] Referral ID Status Reason Start Date Expiration Date Visits Requested Visits Authorized [id number] Specialty Report Received Specialty Services Required 01/05/2023 1 1 Question Answer Reason for Request: diagnostic testing completed [facility] (MADONNA X1 RCA). HCM s/p MRI. Assist with HCM workup. ?ICD/pacer, med managment, genetic testing. Dr. Sebastian saw patient as inpt Reason for Visit * Reason Comments Follow-up * Consult (3 - 10 Business Days) - Authorization Not Required Specialty Diagnoses / Procedures Referred By Charo t Referred To Contact Cardiology Diagnoses NSTEMI (non-ST elevated myocardial infarction) (HCC-CMS) Acute on chronic heart failure with preserved ejection fraction (HFpEF) (HCC-CMS) Hypertrophic cardiomyopathy (HCC-CMS) [facility] [address] [place] [address] Referral ID Status Reason Start Date Expiration Date Visits Requested Visits Authorized [id number] Authorization Not Required Continuity of Care 1 1 Encounter Details Date Type Department Care Team (Latest Contact Info) Description 01/05/2023 11:45 EDT Office Visit [facility] [address] [place] [address] Carlos Ha NP [address] [place] [address] [place] [address] Hypertrophic cardiomyopathy (HCC-CMS) (Primary Dx); Chronic heart failure with preserved ejection fraction (HCC-CMS); ASCVD (arteriosclerotic cardiovascular disease); Ventricular tachycardia (HCC-CMS); Paroxysmal atrial fibrillation (HCC-CMS); Essential hypertension; Mixed hyperlipidemia; Blood loss anemia Social History Tobacco Use Types Packs/Day [...] Sign Reading Time Taken Comments Blood Pressure - - Pulse - - Temperature - - Respiratory Rate - - Oxygen Saturation - - Inhaled Oxygen Concentration - - Weight - - Height 162.6 cm (5' 4) 01/05/2023 1144 EDT Body Mass Index - - documented in [...] this encounter Progress Notes * Carlos Ha, HEAD OF PHYSICS - 01/05/2023 1145 EDT Images from the original note were [...] was cancelled as she presented to [facility] ED on the day it was scheduled. She presented to [facility] on with complaints of fatigue, chest [...] and octreotide. She was then transferred to [facility]. Repeat EDG showed esophagitis, scattered [...] in for NSTEMI. She was transferred to [facility] for LHC 12/08/2022 with severe single [...] she has noticed improvement in hersymptoms since [facility] with PCI. I feel the same. Still weak and fatigued with most activities. [facility] Cryptogenic stroke (left MCA) 2017 with Medtronic loop 2016. ASA recently started during admission at [facility] 08/2022 Paroxysmal atrial fibrillation (2 hr episode noted on monitor 2018.Started on Eliquis. No further episodes noted) NSVT (1 episode August 2019 with negative MPI) AVB type I and II - noted on media monitor during recent admission Hypertension, Hyperlipidemia (LDL 65 in 2021: She has been intolerant to multiple statins now on REPATHA) DM2 (A1C 7.1) CKD III Kidney stone 11/02 passed Duodenal ulcer and esophagitis with acute GIB admit to [facility] 11/11-11/14. D/C on Protonix. ?Parkinson's Disease SH Lives in [place] with spouse Has three grown children She [...] 1/4 needle ??? blood glucose meter by [facility] (non-drug; combo route) route daily. One touch [...] glucose scanning reader (FREESTYLE VICKY 2 READER) [facility] 1 Device by [facility] (non-drug; comboroute) route daily. Dispense one reader [...] ??? lancets/blood glucose strips (ONE TOUCH [facility]) -to test blood sugar - twice daily [...] ??? Propoxyphene N-Acetaminophen Other reaction(s): Hallucinations ??? Dezfcep-Gos-Snm Reductase Inhibitors ??? Trulicity [Dulaglutide] Gi Side effect ROS: The rest of the pertinent 10 point review of systems is negative other than mentioned in the HPI PHYSICAL EXAM: Vitals: 01/05/23 1144 Height: 162.6 cm (64) GENERAL APPEARANCE: No [...] dilation (TID) with a value of 1.4 [facility] 12/08/2022 CORONARY ARTERIES: The coronary [...] 90% stenosis of RCA found on angiography. [facility] completed 12/08/22 with successful RCA stenting. -Tolerating Plavix. ASA discontinued while on Eliquis (hx of GIB due to esophagitis requiring transfusion) -Continue BB and Repatha -Hold Cardiac Rehab until she is symptomatically doing better 2. HCM severe asymmetric hypertrophy of LV with septal thickness 1.9 cm. Work up includes MCOT which she will start today. Awaiting MRI at [facility] 12/31. Spoke with Dr. Sebastian at [facility] who saw her in consultation. Referral sent to have him follow up with her as outpatient. Awaiting appointment. Low dose Metoprolol started while at [facility] -Dr. Sebastian with the Advanced Heart Failure Team consulted with patient during her inpatient admission. Will refer back as outpatient now that diagnostic testing complete to assist with further management. ?need for ICD. ?genetic testing. -cMRI 12/31 - Severe, concentric/diffuse hypertrophic cardiomyopathy with associated extensive myocardial fibrosis involving the anterior, lateral, and inferior whitfield from base to apex. The distal apex (segment 17) is concentrically involved by delayed enhancement. Left ventricular ejection fractionis 60% and end diastolic wall mass is approximately 175 g. 3. NSVT. -MCOT 7 episodes of NSVT. Longest episode 12 beats. Asymptomatic -Continue low dose BB -Will need evaluation for possible device (ICD) 4. PAF. -Eliquis resumed -No episodes of AF seen on MCOT 5. Second degree AVB type I and II seen on telemetry. First degree AVB on EKG today. -Stable on decreased BB dose -Assessing for possible need for device (PPM) 6. HTN. Well controlled 7. HDL. LDL treated to target on REPATHA. Statin intolerant -Continue Repatha. Target LDL <70 8. DM2 9. CVA (left MCA) 2017. Aspirin DC during recent admission d/t duodenal ucler 10. . Mild on most recent echo 11. Anemia GI blood loss -H & H stable -Iron studies with transferrin saturation 4%. Will plan IV iron infusion. Venofer 200 mg weekly forthree weeks. Patient advised to seek immediate medical attention with any further episodes of melena or signs ofbleeding, worsening chest pain, shortness of breath, or syncope. Scheduled for three week follow up. I spent a total of 60 minutes on the date of this encounter which includes time with the patient, time reviewing medical records and laboratory results, time updating the chart information, and time composing this note. No procedures were performed at the time of the visit. Carlos Ha NP * Deepali Ovalles RN - 01/05/2023 1141 EDT See TE 01/06 Orders signed and faxed to [facility] infusion suite at [phone] weekly x three. * Sabrina Herring MA - 01/05/2023 1144 EDT I called and spoke with Mirella at [facility] Cardiac rehab, she stated she would make a note to hold off on Cardiac rehab for now and await a call back from us when Joanna can resume. [phone] documented in this encounter Plan of Treatment Upcoming Encounters Date Type Department Care Team (Late st Contact Info) Description 03/08/2024 9:30 EDT Ancillary Procedure [facility] Cardiology - [address] [place] [address] 03/08/2024 10:15 EDT Ancillary Procedure [facility] Cardiology [address] [place] [address] 04/05/2024 10:00 EDT Ancillary Procedure [facility] [address] [place] [address] 04/05/2024 10:00 EDT Office Visit [facility] Clinic [address] [place], [place] [id number] Carlos Ha NP [address] [place] [address] [address] [place] [address] Scheduled Referrals Name Type Priority Associated Diagnoses Orde r Schedule AMB CONS/FOLLOW UP CARDIOLOGY Outpatient Referral Routine/Next Available Hypertrophic cardiomyopathy (HCC-CMS) Chronic heart failure with preserved ejection fraction (HCC-CMS) ASCVD (arteriosclerotic cardiovascular disease) Ventricular tachycardia (HCC-CMS) Paroxysmal atrial fibrillation (HCC-CMS) Essential hypertension Mixed hyperlipidemia Expected: 01/12/2023 (Approximate), Expires: 01/06/2024 documented as of this encounter Procedures Procedure Name Priority Date/Time Associated Diagnosis Comments ECG REPORT - SCANNED 01/11/2023 8:04 EDT EKG 12-LEAD Routine 01/05/2023 11:55 EDT Ventricular tachycardia ([facility]) documented in this encounter Results * ECG REPORT - SCANNED (01/11/2023 8:04 EDT) 01/11/2023 8:04 EDT Scan 2 Transfer And Line Up Worker PROCEDURE/MINOR CROW GICAL ORDERABLES * (ABNORMAL) FERRITIN (01/05/2023 13:19 EDT) Ferritin 6(L) 11 - 264 ng/mL 01/05/2023 14:59 EDT [facility] Blood VENOUS BLOOD / Unknown Venipuncture / Unknown 01/05/2023 13:19 EDT 01/05/2023 13:48 EDT Narrative [facility] - 01/05/2023 14:59 EDT The results of this assay can be falsely lowered due to the consumption of Biotin. Carlos Ha NP CHEMISTRY & BLOOD GA S ORDERABLES Performing Organization Address City/State/[facility] Co de Phone Number [facility] [address] [place] [address] * (ABNORMAL) TRANSFERRIN SATURATION (01/05/2023 13:19 EDT) Iron 18(L) 37 - 170 ??g/dL 01/05/2023 14:29 EDT [facility] Iron Binding Capacity 431 240 - 450 ??g/dL 01/05/2023 14:29 EDT [facility] Transferrin Saturation 4(L) 15 - 45 % 01/05/2023 14:29 EDT [facility] Blood VENOUS BLOOD / Unknown Venipuncture / Unknown 01/05/2023 13:19 EDT 01/05/2023 13:48 EDT Carlos L Ha HEAD OF PHYSICS CHEMISTRY & BLOOD GA S ORDERABLES [facility] [address] [place] [address] * (ABNORMAL) COMPLETE BLOOD COUNT AND DIFFERENTIAL (01/05/2023 13:19 EDT) WBC 8.72 4.00 - 12.40 K/cmm 01/05/2023 14:03 [facility] RBC 3.93 3.86 - 5.04 M/cmm 01/05/2023 14:03 [facility] Hemoglobin 9.0(L) 11.6 - 15.2 g/dL 01/05/2023 14:03 [facility] HCT 31.1(L) 34.9 - 44.4 % 01/05/2023 14:03 [facility] MCV 79(L) 81 - 98 fL 01/05/2023 14:03 [facility] MCH 22.9(L) 26.7 - 33.3 pg 01/05/2023 14:03 [facility] Hypochromia 2+ 01/05/2023 14:03 [facility] MCHC 28.9(L) 32.1 - 35.9 g/dL 01/05/2023 14:03 [facility] RDW-CV 17.8(H) <14.7 % 01/05/2023 14:03 [facility] RDW-SD 51.2(H) <50.4 fl 01/05/2023 14:03 [facility] Anisocytosis 1+ 01/05/2023 14:03 [facility] PLT 557(H) 141 - 377 K/cmm 01/05/2023 14:03 [facility] MPV 10.1 9.5 - 12.7 fL 01/05/2023 14:03 [facility] % Neutrophils 54.1 % 01/05/2023 14:03 [facility] % Lymphocytes 26.0 % 01/05/2023 14:03 [facility] % Monocytes 7.1 % 01/05/2023 14:03 [facility] % Eosinophils 10.1 % 01/05/2023 14:03 [facility] % Basophils 2.4 % 01/05/2023 14:03 [facility] % Immature Grans 0.3 % 01/06/20 14:03 [facility] Absolute Neutrophils 4.71 2.20 - 8.85 K/cmm 01/05/2023 14:03 [facility] Absolute Lymphocytes 2.27 1.09 - 3.30 K/cmm 01/05/2023 14:03 [facility] Absolute Monocytes 0.62 0.10 - 0.80 K/cmm 01/05/2023 14:03 [facility] Absolute Eosinophils 0.88(H) 0.03 - 0.61 K/cmm 01/05/2023 14:03 [facility] ABS Basophils 0.21(H) 0.01 - 0.11 K/cmm 01/05/2023 14:03 [facility] Absolute Immature Grans 0.03 0.00 - 0.06 K/cmm 01/05/2023 14:03 [facility] Type of Differential: Auto 01/05/2023 14:03 [facility] Blood VENOUS BLOOD / Unknown Venipuncture / Unknown 01/05/2023 13:19 EDT 01/05/2023 13:58 EDT Carlos Ha HEAD OF PHYSICS PACKAGES & DNA PROBE ORDERABLES [facility] [address] [place] [address] * EKG 12-LEAD (01/05/2023 11:55 EDT) 01/05/2023 11:5 5 EDT Narrative [facility] - 01/09/2023 12:52 EDT ? CVC ? Test Date: ?2023-01-05 Pat Name: ? JOANNA GAUTAM ?Department: ? Room: ? Gender: ? Female ? Electronic Wirer: ?? EP : ?1950 ? Requested By: AMIRAH Jimenez Order Number: [id number] ? Reading MD: ?? LING CAPPS MD ? Measurements Intervals ?[place] ? Rate: ? 71 ? P: ?-44 VT: ? 306 ?QRS: ?-25 QRSD: ? 126 ?T: ?149 QT: ? 418 ? QTc: ?454 ? Interpretive Statements Unusual P axis, possible ectopic atrial rhythm Left ventricular hypertrophy with QRS widening and repolarization abnormality Compared to ECG 12/08/2022 18:48:37 Possible ectopic rhythm now present I reviewed the tracing and have either agreed or edited the findings in this report. Electronically Signed On 01-09-2023 12:52:11 EDT by LING CAPPS MD. Procedure Note Ling Capps MD - 01/09/2023 CVC Test Date: 2023-01-05 Pat Name: JOANNA HART Department: Room: Gender: Female Electronic Wirer: EP : 1950 Requested By: AMIRAH Jimenez Order Number: [id number] Reading MD: LING CAPPS MD Measurements Intervals [place] Rate: 71 P: -44 VT: 306 QRS: -25 QRSD: 126 T: 149 QT: 418 QTc: 454 Interpretive Statements Unusual P axis, possible ectopic atrial rhythm Left ventricular hypertrophy with QRS widening and repolarizationabnormality Compared to ECG 12/08/2022 18:48:37 Possible ectopic rhythm now present I reviewed the tracing and have either agreed or edited the findings inthis report. Electronically Signed On 01-09-2023 12:52:11 EDT by LING CAI. Carlos Ha NP CARDIAC ECG ORDERABL ES [facility] documented in this encounter Visit Diagnoses Diagnosis Hypertrophic cardiomyopathy (HCC-CMS)- Primary Other hypertrophic cardiomyopathy Chronic heart failure with preserved ejection fraction (HCC-CMS) ASCVD (arteriosclerotic cardiovascular disease) Unspecified cardiovascular disease Ventricular tachycardia (HCC-CMS) Paroxysmal ventricular tachycardia Paroxysmal atrial fibrillation (HCC-CMS) Atrial fibrillation Essential hypertension Unspecified essential hypertension Mixed hyperlipidemia Blood loss anemia Iron deficiency anemia secondary to blood loss (chronic) documented in this encounter Orders Lab Orders Without Results Count Last Ordered D ate First Ordered Date IBC 01/05/2023 IRON 01/05/2023 documented in this encounter Care Teams School Supervisor Relationship Specialty Start Date End Date Bryant Crain MD [address] [place], [place] [phone] PCP - General 05/04/15 05/17/23 Carlos Ha NP [address] [place] [address] [address] [place] [phone] Consulting Clinician Cardiovascular Disease 09/14/21 documented as of this encounter
--- OUTSIDE RECORDS SUMMARY | 2024-01-07 11:12 | XMS_ITS | Encounter Summary ---
Author Organization [facility] Address [address] [place] [address] Care Team Providers Care Arts Manager Name Role Phone Bryant Crain MD Primary Care Provider [phone] Carlos Ha EXTRACTIVE METALLURGIST Unavailable [phone] Reason for Visit * Laboratory Services (Routine/Next Available) - New Request Specialty Diagnoses / Procedures [facility] Referred To Contact Diagnoses NSTEMI (non-ST elevated myocardial infarction) (HCC-CMS) ASCVD (arteriosclerotic cardiovascular disease) Duodenal erosion Gastrointestinal hemorrhage, unspecified gastrointestinal hemorrhage type Procedures COMPLETE BLOOD COUNT Collette Park NP [address] [address] Referral ID Status Reason Start Date Expiration Date V isits Requested Visits Authorized [id number] New Request 12/09/2022 1 1 Encounter Details Date Type Department Care Team (Late st Contact Info) Description 01/05/2023 13:05 EDT Phlebotomy Only [facility] - Outpatient Phlebotomy Drawing [address] [place] [address] Lab, [facility] Op Phlebotomy NSTEMI (non-ST elevated myocardial infarction) (HCC-CMS); ASCVD (arteriosclerotic cardiovascular disease); Duodenal erosion; Gastrointestinal hemorrhage, unspecified gastrointestinal hemorrhage type; Blood loss anemia Social History Tobacco Use [...] Info) Description 03/08/2024 9:30 EDT Ancillary Procedure [facility] Cardiology - [place] [address] [place] [address] 03/08/2024 10:15 EDT Ancillary Procedure [facility] Cardiology - [place] [address] [place] [address] 04/05/2024 10:00 EDT Ancillary Procedure [facility] Cardiology Clinic [address] [place] [id number] 04/05/2024 10:00 EDT Office Visit [facility] [address] [place] [address] Carlos aH NP [address] [place] [address] [address] [place] [address] documented as of this encounter Procedures Procedure Name Priority Date/Time Associated Diagnosis Comments TRANSFERRIN SATURATION Routine 01/05/2023 13:19 EDT Blood loss anemia COMPLETE BLOOD COUNT AND DIFFERENTIAL Routine 01/05/2023 13:19 EDT Blood loss anemia FERRITIN Routine 01/05/2023 13:19 EDT Blood loss anemia documented in this encounter Results * (ABNORMAL) FERRITIN (01/05/2023 13:19 EDT) Ferritin 6(L) 11 - 264 ng/mL 01/05/2023 14:59 EDT [facility] Blood VENOUS BLOOD / Unknown Venipuncture / Unknown 01/05/2023 13:19 EDT 01/05/2023 13:48 EDT Narrative [facility] - 01/05/2023 14:59 EDT The results of this assay can be falsely lowered due to the consumption of Biotin. Carlos Ha NP CHEMISTRY & BLOOD GA S ORDERABLES [facility] [address] [place] [address] * (ABNORMAL) TRANSFERRIN SATURATION (01/05/2023 13:19 EDT) Iron 18(L) 37 - 170 ??g/dL 01/05/2023 14:29 EDT [facility] Iron Binding Capacity 431 240 - 450 ??g/dL 01/05/2023 14:29 EDT [facility] Transferrin Saturation 4(L) 15 - 45 % 01/05/2023 14:29 EDT [facility] Blood VENOUS BLOOD / Unknown Venipuncture / Unknown 01/05/2023 13:19 EDT 01/05/2023 13:48 EDT Carlos Ha NP CHEMISTRY & BLOOD GA S ORDERABLES [facility] [address] [place] [address] * (ABNORMAL) COMPLETE BLOOD COUNT AND DIFFERENTIAL (01/05/2023 13:19 EDT) WBC 8.72 4.00 - 12.40 K/cmm 01/05/2023 14:03 [facility] RBC 3.93 3.86 - 5.04 M/cmm 01/05/2023 14:03 [facility] Hemoglobin 9.0(L) 11.6 - 15.2 g/dL 01/05/2023 14:03 [facility] HCT 31.1(L) 34.9 - 44.4 % 01/05/2023 14:03 [facility] MCV 79(L) 81 - 98 fL 01/05/2023 14:03 [facility] MCH 22.9(L) 26.7 - 33.3 pg 01/05/2023 14:03 [facility] Hypochromia 2+ 01/05/2023 14:03 [facility] MCHC 28.9(L) 32.1 - 35.9 g/dL 01/05/2023 14:03 [facility] RDW-CV 17.8(H) <14.7 % 01/05/2023 14:03 [facility] RDW-SD 51.2(H) <50.4 fl 01/05/2023 14:03 [facility] Anisocytosis 1+ 01/05/2023 14:03 [facility] PLT 557(H) 141 - 377 K/cmm 01/05/2023 14:03 [facility] MPV 10.1 9.5 - 12.7 fL 01/05/2023 14:03 [facility] % Neutrophils 54.1 % 01/05/2023 14:03 [facility] % Lymphocytes 26.0 % 01/05/2023 14:03 [facility] % Monocytes 7.1 % 01/05/2023 14:03 [facility] % Eosinophils 10.1 % 01/05/2023 14:03 [facility] % Basophils 2.4 % 01/05/2023 14:03 [facility] % Immature Grans 0.3 % 01/06/20 14:03 [facility] Absolute Neutrophils 4.71 2.20 - 8.85 K/cmm 01/05/2023 14:03 [facility] Absolute Lymphocytes 2.27 1.09 - 3.30 K/cmm 01/05/2023 14:03 [facility] Absolute Monocytes 0.62 0.10 - 0.80 K/cmm 01/05/2023 14:03 [facility] Absolute Eosinophils 0.88(H) 0.03 - 0.61 K/cmm 01/05/2023 14:03 [facility] ABS Basophils 0.21(H) 0.01 - 0.11 K/cmm 01/05/2023 14:03 [facility] Absolute Immature Grans 0.03 0.00 - 0.06 K/cmm 01/05/2023 14:03 [facility] Type of Differential: Auto 01/05/2023 14:03 [facility] Blood VENOUS BLOOD / Unknown Venipuncture / Unknown 01/05/2023 13:19 EDT 01/05/2023 13:58 EDT Carlos Ha NP PACKAGES & DNA PROBE ORDERABLES [facility] [address] [place] [address] documented in this encounter Visit Diagnoses Diagnosis NSTEMI (non-ST elevated myocardial infarction) ([facility]-CMS) Acute myocardial infarction, subendocardial infarction, episode of care unspecified ASCVD (arteriosclerotic cardiovascular disease) Unspecified cardiovascular disease Duodenal erosion Duodenal ulcer, unspecified as acute or chronic, without hemorrhage, perforation, or obstruction Gastrointestinal hemorrhage, unspecified gastrointestinal hemorrhage type Blood loss anemia Iron deficiency anemia secondary to blood loss (chronic) documented in this encounter Care Teams Arts Manager Relationship Specialty Start Date End Date Bryant Crain MD [address] [place], [place] [id number] PCP - General 05/04/15 05/17/23 Carlos Ha NP [address] [place] [address] [address] [place] [address] Consulting Clinician Cardiovascular Disease 09/14/21 documented as of this encounter
--- OUTSIDE RECORDS SUMMARY | 2024-01-07 11:12 | XMS_ITS | Encounter Summary ---
Author Organization [facility] Address [address] [place] [address] Care Team Providers Care It Network Engineer Name Role Phone Bryant Crain MD Primary Care Provider [phone] Carlos Ha HOUSE CLEANER Unavailable [phone] Reason for Referral * Laboratory Services (Routine/Next Available) - New Request Specialty Diagnoses / Procedures Referred By Charo daniel Referred To Contact Diagnoses NSTEMI (non-ST elevated myocardial infarction) (HCC-CMS) ASCVD (arteriosclerotic cardiovascular disease) Duodenal erosion Gastrointestinal hemorrhage, unspecified gastrointestinal hemorrhage type Procedures COMPLETE BLOOD COUNT Collette Park NP 62 [facility] [address] [place] [phone] Referral ID Status Reason Start Date Expiration Date V isits Requested Visits Authorized [id number] New Request 12/09/2022 1 1 * Consult (Routine/Next Available) - New Request Specialty Diagnoses / Procedures Referred By Charo daniel Referred To Contact Cardiac Rehabilitation Diagnoses NSTEMI (non-ST elevated myocardial infarction) (HCC-CMS) Collette Park NP 62 [facility] [address] [place] [phone] [facility] Cardiology [address] [place] [address] Referral ID Status Reason Start Date Expiration Date Visits Requested Visits Authorized [id number] New Request Specialty Services Required 12/08/2022 1 1 Question Answer Reason for Request: s/p PCI * (Routine/Next Available) Specialty Diagnoses / Procedures Referred By Charo daniel Referred To Contact Collette Park NP [address] [phone] Referral ID Status Reason Start Date Expiration Date V isits Requested Visits Authorized Specialty Services Required Comments Your local cardiac rehab program will contact you and/or your print line operator to discuss. * Follow Up (Routine/Next Available) - New Request Specialty Diagnoses / Procedures Referred By Charo daniel Referred To Contact Diagnoses NSTEMI (non-ST elevated myocardial infarction) ([facility]-CMS) Collette Park NP [address] [phone] Bryant Crain MD [address] [place] [id number] Referral ID Status Reason Start Date Expiration Date Visits Requested Visits Authorized [id number] New Request Continuity of Care 12/08/2022 1 1 Question Answer Reason for Request: s/p PCI * Follow Up (Routine/Next Available) - Denied Specialty Diagnoses / Procedures Referred By Contloreto t Referred To Contact Cardiology Diagnoses NSTEMI (non-ST elevated myocardial infarction) (HCC-CMS) Collette Park NP [address] [phone] Carlos Ha NP 130 [facility] [address] [place] [address] Referral ID Status Reason Start Date Expiration Date V isits Requested Visits Authorized [id number] Denied Specialty Services Required 12/08/2022 1 0 Question Answer Reason for Request: s/p PCI Reason for Visit * Auth/Cert (Routine) Specialty Diagnoses / Procedures Referred By Contac t Referred To Contact Diagnoses NSTEMI (non-ST elevated myocardial infarction) (HCC-CMS) NSTEMI, rising troponin Referral ID Status Reason Start Date Expiration Date Visits Re quested Visits Authorized [id number] 1 1 Encounter Details Date Type Department Care Team (Late st Contact Info) Description 12/03/2022 22:09 EDT - 12/09/2022 14:30 EDT Hospital Encounter [facility] Cardiac Unit [address] [place] [address] Randy Sebastian MD [address] [place] [phone] Von Walters MD 111 [facility], Level [address] [place] [phone] Gita Westbrook MD 214 [facility] [address] [place] [phone] ASCVD (arteriosclerotic cardiovascular disease) (Primary Dx); NSTEMI (non-ST elevated myocardial infarction) (HCC-CMS); Chest pain, unspecified type; Hypertrophic cardiomegaly; Duodenal erosion; Gastrointestinal hemorrhage, unspecified gastrointestinal hemorrhage type Discharge Disposition: Home or Self Care Social [...] 12:27 EDT documented as of this encounter Last Filed Vital Signs Vital Sign Reading Time Taken Comments Blood Pressure 123/59 12/09/2022 0925 EDT Pulse 70 12/06/2022 1259 EDT Temperature 36.8 ??C (98.2 ??F) 12/09/2022 0925 EDT Respiratory Rate 18 12/09/2022 0925 EDT Oxygen Saturation 97% 12/09/2022 0925 EDT Inhaled Oxygen Concentration - - Weight 68.6 kg (151 lb 4.8 oz) 12/09/2022 0605 E DT Height 162.6 cm (5' 4.02) 12/03/2022 2344 EDT Body Mass Index 25.96 12/03/2022 2344 EDT documented in this encounter Functional Status [...] No 12/03/2022 documented as of this encounter Discharge Summaries * Collette Coker NP - 12/09/2022 1311 EDT Images from the original note were not included. Cardiology Discharge Summary Primary Care Provider: Bryant Crain Attending Physician: Gita Westbrook MD Admit Date: 12/03/2022 Discharge Date: 12/09/2022 Disposition: Home or self care Problems and Procedures Admitting Diagnosis: coronary artery disease Final Hospital Diagnosis: coronary artery disease Additional Problems Managed in the Hospital Active Hospital Problems Diagnosis Date Noted ??? *ASCVD (arteriosclerotic cardiovascular disease) 12/08/2022 ??? Hypertrophic cardiomegaly Resolved Hospital Problems Diagnosis Date Noted Date Resolved ??? NSTEMI (non-ST elevated myocardial infarction) ([facility]) ([facility]) 12/07/2022 Principal Procedure: Heart cath and Percutaneous coronary intervention Date: 12/08/2022 Access: Right radial artery ?? Procedure: She was brought to [facility] Cardiac [facility]atheter[facility] Laboratory for the procedure: Diagnostic coronary/graft angiography, Coronary intervention (PCI) and OCT. ?? Closure: TR Band ?? Post-Procedure Condition: The condition of the patient was Fair. ?? Complications: None. ?? IV Contrast Total: 130 mL ?? X-ray Dose: 292mGy ?? Estimated Blood Loss: Minimal. Unless otherwise noted,there were no specimens removed, cultures obtained, or drains retained. ?? Research Study: Patient is not enrolled in a research study. ?? Diagnostic Cardiac Study Results Left main: Mild irregularities Left anterior descending: Mild irregularities Left circumflex: Small ramus proximal 80%, circumflex 50% Right coronary artery: dominant, mid culprit 90%. Mild ostial disease, PDA 50% Grafts: n/a ?? Left Ventriculography and Hemodynamic Results None ?? Endovascular Study Results None ?? Post-Procedure Diagnostic Conclusion: PCI is indicated. ?? Interventional Procedure: Using standard technique, the RCA vessel was stented using a 3.5x33 Xience MADONNA and f/u 4 mm balloon inflations. OCT used pre and post for assessment with final result showing good apposition and sizing. ?? Plan: Aspirin 81mg PO daily. Clopidogrel 75 mg PO daily. Resume eliquis. Aspirin for one week. Echo 12/02/2022: Left Ventricle The left ventricular cavity was [...] IVC/SVC The inferior vena cava was dilated. Cardiac MRI 12/04/2022: IMPRESSION 1. 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 The distal apex ([id number]) is concentrically involved by delayed enhancement. Left ventricular ejection fraction is 60% and end diastolic wall mass is approximately 175 g. 2. The distal portion of the left ventricle cavity completely obliterates in systole, however thereis no evidence of abnormal mitral valve motion or left ventricular outflow tract obstruction. 3. Findings compatible with aortic stenosis, gradient is 14 mmHg. Hospital Course Fortunato Hart??is a 72 y.o.??female??with history significant for paroxysmal afib (on Eliquis), hypertrophic cardiomyopathy(w/o??LVOTO on TTE on 12/02), mild , NSVT and Mobitz 1 AV block on ziopatch, recent admission for GIB (11/10), CVA , T2DM and Parkinson Disease presenting as a direct transfer from [facility] where she presented on 12/01 due to shortness of breath, and chest tightness that woke her up from her sleep 3- 4 days prior. At [facility] she was diuresed with IV lasix BID, however trop was still dynamic, requiring a transfer for an ischemic evaluation. At [facility] she underwent a NM PET scan which showed reversible ischemia and she was therefore taken to the laboratory chemical assistant for further evaluation and treatment. Patient had heart cath and stenting as above. Patient did well overnight and was free of arrhythmias on telemetry. Echo done, EF 60-65% with diastolic dysfunction and septal asymmetric hypertrophy which is chronic for her. Patient was restarted on ELEVATOR TENDER GDMT as well as new to her jardiance, losartan and spironolactone, tolerating well. Advise following up with OP provider to titrate GDMT as clinically indicated. Of note, patient had a few episodes of asymptomatic AV lilly dysfunction, EP consulted and after reviewing her ECGs and tele, recommend safe discharge on ELEVATOR TENDER metop 12.5mg daily, restarted during this admission and tolerating well. Discussed s/s for urgent follow up. Patient will be discharged on aspirin 81 mg and clopidogrel 75 mg daily uninterrupted for 1 week, after which she will stop taking ASA 81mg and restart her home eliquis 5mg BID while continuing clopidogrel 75mg daily. Holding eliquis per Dr Ha for 1 week of DAPT due to recent GIB. Repeat CBC ordered for next week, PCP cc-ed with results, advise reaching out to PCP sooner if symptoms return. Follow up was requested with PCP and Carlos Ha HOUSE CLEANER. Pt was also referred for cardiac rehab evaluation at [facility]. Of note, PLT noted to be elevated over the last month (suspect reactive thrombocytosis related to recent GIB/anemia). Recommend trending CBC outpatient. Allergies and Immunizations Allergies Allergen Reactions ??? Hydroxychloroquine Anaphylaxis ??? [...] ??? Propoxyphene N-Acetaminophen Other reaction(s): Hallucinations ??? Ernuwaf-Duz-Hkm Reductase Inhibitors ??? Trulicity [Dulaglutide] Gi Side effect There is no immunization history on file for this patient. Transition of Care Plans Condition at Discharge Improved Assessment at Discharge Vitals: 12/08/22 2323 12/09/22 0605 12/09/22 0609 12/09/22 0925 BP: 122/62 99/79 124/56 123/59 BP Cuff Location: Left arm Left arm Left arm Left arm BP Patient Position: Lying left side Supine Supine Sitting Pulse: Resp: 20 18 Temp: 37 ??C (98.6 ??F) 36.4 ??C (97.6 ??F) 36.8 ??C (98.2 ??F) TempSrc: Oral Oral Oral SpO2: 95% 94% 95% 97% Weight: 68.6 kg (151 lb 4.8 oz) Height: Is the patient being discharged with a diagnosis of Systolic Heart Failure? No Coumadin Management N/A Non-Cardiac Studies at Time of Discharge none Results Pending at Discharge Test results still pending from this admission None Last Lab Results at Discharge BUN: Lab Results Component Value Date BUN 15 12/09/2022 Creatinine: Lab Results Component Value Date CREATININE 0.95 12/09/2022 CBC: Lab Results Component Value Date WBC 7.64 12/09/2022 RBC 3.47 (L) 12/09/2022 HGB 9.1 (L) 12/09/2022 HCT 28.1 (L) 12/09/2022 MCV 81 12/09/2022 MCH 26.2 (L) 12/09/2022 MCHC 32.4 12/09/2022 PLT 470 (H) 12/09/2022 DIFFTYPE Auto 12/03/2022 Electrolytes: Lab Results Component Value Date NA 138 12/09/2022 K 4.3 12/09/2022 CL 107 12/09/2022 CO2 19 (L) 12/09/2022 Lipid Profile: Lab Results Component Value Date CHOL 107 12/03/2022 TRIG 188 (H) 12/03/2022 HDL 40 (L) 12/03/2022 LDLBASE 29 12/03/2022 CHOLHDL 2.7 12/03/2022 Lab Results Component Value Date HGBA1C 7.1 (H) 11/11/2022 Discharge Follow Up Appointments Scheduled with [facility] Appointments Outside of [facility] We Will Schedule Follow-up appointments and procedures [facility] Cardiac Rehabilitation Referral Your local cardiac rehab program will contact you and/or your print line operator to discuss. Authorizing Provider: Collette Coker NP Amb Consult/Follow Up Primary Care Physician Outside of Network Reason for Request: s/p PCI Authorizing Provider: Collette Coker NP Amb Consult/Follow Up Cardiac Rehabilitation Reason for Request: s/p PCI Authorizing Provider: Collette Coker NP Amb Consult/Follow Up Cardiology Reason for Request: s/p PCI Authorizing Provider: Collette Coker NP Studies We Will Schedule Follow-up labs and tests Complete Blood Count Complete by: Dec 15, 2022 (Approximate) Authorizing Provider: Collette Cokre NP Medication List START taking these medications clopidogreL 75 mg tablet Commonly known as: PLAVIX Take 1 Tablet by mouth daily. Start taking on: December 10, 2022 empagliflozin 10 mg tablet Commonly known as: JARDIANCE Take 1 Tablet by mouth daily. losartan 25 mg tablet Commonly known as: COZAAR Take 1 Tablet by mouth at bedtime. spironolactone 25 mg tablet Commonly known as: ALDACTONE Take 0.5 Tablets by mouth daily. Start taking on: December 10, 2022 CHANGE how you take these medications apixaban 5 mg tablet Commonly known as: Eliquis Take 1 Tablet by mouth 2 times daily. Start taking on: December 16, 2022 What changed: These instructions start on December 16, 2022. If you are unsure what to do until then, ask your doctor or other care provider. CONTINUE taking these medications acetaminophen 650 mg CR tablet Commonly known as: TYLENOL aspirin 81 mg EC tablet Take 1 Tablet by mouth daily for 7 days. blood glucose meter by [facility] (non-drug; combo route) route daily. One touch verio meter or best covered by insurance. cetirizine 10 mg tablet Commonly known as: ZYRTEC Cholecalciferol (Vitamin D3) 10 mcg (400 unit) tablet cyanocobalamin 500 mcg tablet Commonly known as: VITAMIN B-12 FreeStyle Vicky 2 [place] [facility] Generic drug: flash glucose scanning reader 1 Device by [facility] (non-drug; combo route) route daily. Dispense one reader FreeStyle Vicky 2 Sensor kit Generic drug: flash glucose sensor USE 1 SENSOR EVERY 14 DAYS gabapentin 300 mg capsule Commonly known as: NEURONTIN HumaLOG KwikPen Insulin 100 unit/mL injectable pen Generic drug: insulin lispro lactobacillus combination no.8 3 billion cell capsule Lantus Solostar U-100 Insulin 100 unit/mL (3 mL) injection pen Generic drug: insulin glargine magnesium oxide 400 mg (241.3 mg magnesium) tablet Commonly known as: MAG-OX metFORMIN 750 mg ER tablet Commonly known as: GLUCOPHAGE-XR metoprolol TARtrate 25 mg tablet Commonly known as: LOPRESSOR Take 0.5 Tablets by mouth daily. ONE TOUCH COMBO [facility] OneTouch Ultra Blue Test Strip test strips Generic drug: blood glucose Ozempic 1 mg/dose (4 mg/3 mL) pen injector Generic drug: semaglutide pantoprazole 40 mg tablet Commonly known as: PROTONIX Take 1 Tablet by mouth 2 times daily. Repatha Syringe 140 mg/mL syringe Generic drug: evolocumab * Unifine Pentips Generic drug: insulin pen needles 32G x 5/32 * BD Ultra-Fine Micro Pen Needle 32 gauge x 1/4 needle Generic drug: Insulin [place] (Disposable) * This list has 2 medication(s) that are the same as other medications prescribed for you. Read thedirections carefully, and ask your doctor or other care provider to review them with you. Where to Get Your Medications These medications were sent to [facility] - [address] [address] ?? aspirin 81 mg EC tablet ?? clopidogreL 75 mg tablet ?? empagliflozin 10 mg tablet ?? losartan 25 mg tablet ?? spironolactone 25 mg tablet Information about where to get these medications is not yet available Ask your nurse or doctor about these medications ?? apixaban 5 mg tablet ?? metoprolol TARtrate [address] Westbrook is the attending today at time of service, was on site, present for the examination of the patient and participated in planning care as well as available for questions at all times. Collette Coker NP 12/09/2022 13:38 I spent a total of 5 minutes on the date of this encounter meeting with the patient and reviewing documentation/coordinating care as described in the above note. Associated attestation - Gita Westbrook MD - 12/14/2022 1243 EDT I have seen and examined on the day of discharge. the patient. I participated in gonzalez portions of the evaluation and I agree with the findings on physical exam as well as outlined assessment and plan. NSTEMI, s/p successful PCI to the RCA. Stable for dc today. documented in this encounter Discharge Instructions * Discharge Instr - Other Orders* Chandni Alcala RN - 12/04/2022 14:52 EDT Remember the acronym ANIKA - Diet: low salt - Activity: daily moderate activity for 30 minutes - Medication administration: refer to the After Visit Summary - Everyday weight: weigh yourself daily and record in weight log - Symptom monitoring and follow though: call your doctor's office If you experience rapid weight gain (3 or more pounds in 2 days), increased shortness of breath, or increase leg swelling. At the time of discharge, it is expected that you will have been started on new cardiac medications. Continue these medications until advised by a doctor. New refills will be required at follow up with your primary care provider or print line operator. * Discharge Instr - DME* Zandra Monge RN - 12/08/2022 8:01 EDT Remember the acronym ANIKA - Diet: low salt - Activity: daily moderate activity for 30 minutes - Medication administration: refer to the After Visit Summary - Everyday weight: weigh yourself daily and record in weight log - Symptom monitoring and follow though: call your doctor's office If you experience rapid weight gain (3 or more pounds in 2 days), increased shortness of breath, or increase leg swelling. documented in this encounter Medications at Time of Discharge Medication Sig Dispensed Refills Start Date End Date acetaminophen (TYLENOL) 650 mg CR tablet 2 tab(s) orally twice a day, only as needed BD ULTRA-FINE MICRO PEN NEEDLE 32 gauge x 1/4 needle 06/17/2021 blood glucose meterIndications:Typ e 2 diabetes mellitus with hyperglycemia, with long-term current use of insulin ([facility]) by [facility] (non-drug; combo route) [...] 2 12/08/2022 flash glucose scanning reader (FREESTYLE VICKY 2 READER) [facility] 1 Device by [facility] (non-drug; combo route) route daily. Dispense one reader 1 Each 10/18/2020 FREESTYLE VICKY 2 SENSOR kit USE 1 [...] 01/18/2020 lancets/blood glucose strips (ONE TOUCH COMBO [facility]) -to test blood sugar - twice daily losartan (COZAAR) 25 mg tablet Take 1 Tablet by mouth at bedtime. 90 Tablet 3 12/09/2022 magnesium oxide (MAG-OX) 400 mg (241.3 mg magnesium) tablet Take 1 Tablet by mouth daily. metFORMIN (GLUCOPHAGE-XR) 750 mg ER tablet Take 1 Tablet by mouth 2 times daily. Independent Comedy NetworkTOUCH ULTRA BLUE TEST STRIP test strips TEST [...] 45 Tablet 3 12/10/2022 UNIFINE PENTIPS 04/19/2019 apixaban (ELIQUIS) 5 mg tablet Take 1 Tablet by mouth 2 times daily. 12/16/2022 03/16/2023 aspirin 81 mg EC tablet Take 1 Tablet by mouth daily for 7 days. 7 Tablet 12/09/2022 12/16/2022 clopidogreL (PLAVIX) 75 mg tablet Take 1 Tablet by mouth daily. 90 Tablet 3 12/10/2022 06/03/2023 metoprolol TARtrate (LOPRESSOR) 25 mg tablet Take 0.5 Tablets by mouth daily. 12/09/2022 05/18/2023 documented as of this encounter Ordered Prescriptions Prescription Sig Dispensed Refills Start Date End Da te losartan (COZAAR) 25 mg tablet Take 1 Tablet by mouth at bedtime. 90 Tablet 3 12/09/2022 spironolactone (ALDACTONE) 25 mg tablet Take 0.5 Tablets by mouth daily. 45 Tablet 3 12/10/2022 empagliflozin (JARDIANCE) 10 mg tablet Take 1 Tablet by mouth daily. 30 Tablet 2 12/08/2022 metoprolol TARtrate (LOPRESSOR) 25 mg tablet Take 0.5 Tablets by mouth daily. 12/09/2022 05/18/2023 clopidogreL (PLAVIX) 75 mg tablet Take 1 Tablet by mouth daily. 90 Tablet 3 12/10/2022 06/03/2023 aspirin 81 mg EC tablet Take 1 Tablet by mouth daily for 7 days. 7 Tablet 12/09/2022 12/16/2022 apixaban (ELIQUIS) 5 mg tablet Take 1 Tablet by mouth 2 times daily. 12/16/2022 03/16/2023 empagliflozin (JARDIANCE) 10 mg tablet Take 1 Tablet by mouth daily. 30 Tablet 2 12/04/2022 12/08/2022 sacubitriL-valsartan (ENTRESTO) 24-26 mg tablet Take 1 Tablet by mouth 2 times daily. 60 Tablet 2 12/04/2022 12/08/2022 documented in this encounter Discharge Disposition Disposition Code Departure Means Destination Comment s Home or Self Long-Term documented in this encounter Progress Notes * Ramona Ingram - 12/08/2022 1442 EDT Spiritual Care Department General Duty Nurse Note Re: Fortunato Hart : 1950 Room: /[facility] Service: Cardiology Orthodox: Restorationist Fortunato has received a visit from the Spiritual Care Department on 12/08/2022. Assessment/Comments: I responded to Fortunato's request for the Sacrament before her procedure. Met with her and her spouse, Kenneth at bedside. They were both receptive and engaged this General Duty Nurse. I explored with Fortunato, her hospitalization, treatment and emotional feeling. Fortunato described feeling anxious about her stent surgery. I validated her fear, provided reassurance and offered pastoral counseling, which helped to dissipate her fear. I administered the Sacrament of the sick, and prayed for her intentions and emotional needs. Per Fortunato, she receives support from her three adult children and six grandchildren. DEMOGRAPHICS Spiritual Care Welcomed End of Life Patient Is Restoration Importance Moderately Important Current Support System Spouse/Significant Other, Family/Friends Level of Support Strong Support ENCOUNTER DATA Date of Encounter 12/08/22 Time of Encounter 1145 Reason for Encounter Referral Referred by General Duty Nurse Care Level 4 - Significant Patient Concerns Reason not visited ENCOUNTER Needs Addressed General Duty Nurse Support, Fear/Anxiety, Sacraments Interventions Assessed and Affirmed Strengths, Build Relationship, Prayer, Sacraments Sacraments Provided Anointed Date of Anointing 12/08/22 Communion Date of Communion Date of Adventism OUTCOME Outcome Stress Level Reduced Stress Outcome of Encounter Patient Satisfied, Needs Met CARE PLAN Plan Patient/Family will Call if Needed Consult With Additional Support Was Clergy Needed? Yes, provided, Mailhouse Operator TIME STAMP: Total time spent 20 minutes in direct floor time; >50% of time was spent in spiritual care. RAMONA INGRAM 12/08/2022 14:42 * Kaila Dotson - 12/08/2022 0931 EDT Spiritual Care Department General Duty Nurse Note Re: Fortunato Hart : 1950 Room: [id number] Service: Cardiology Orthodox: Restorationist Fortunato has received a visit from the Spiritual Care Department on 12/08/2022. Assessment/Comments: Fortunato and Kenneth (of forty-five years!) welcome cash surrender calculator internetworking technician. Both appear to be coping well with humor, family texting, and going through word puzzles together, though Fortunato shares that 'I'm a little anxious' about the waiting - 'I'd just like to get the heck on out of here.' General Duty Nurse internetworking technician affirms the understandable anxiety and frustration of uncertainty. Per Fortunato, her Restorationist charly provides further meaning. She would like sacramental support from a Restorationist cash surrender calculator when possible. General Duty Nurse internetworking technician will reach out to Father Ramona, unit staff cash surrender calculator. DEMOGRAPHICS Spiritual Care Welcomed Patient Is Restoration Importance Moderately Important Current Support System Spouse/Significant Other, Family/Friends Level of Support Strong Support ENCOUNTER DATA Date of Encounter 12/08/22 Time of Encounter 0910 Reason for Encounter Initial Visit Care Level 3 - Some Matter of Substance ENCOUNTER Needs Addressed General Duty Nurse Support, Family Support, Fear/Anxiety, Frustration, Gratitude, Prayer Support Interventions Assessed and Affirmed Strengths, Assessed Spiritual/Restoration Needs, Build Relationship, Explored Spiritual/Relgious/Social Supports, Family Support, Prayer OUTCOME Outcome Stress Level Reduced Stress Outcome of Encounter Continues to Process Issue, Family Supported CARE PLAN Plan Continued General Duty Nurse Support Was Clergy Needed? Yes, unavailable, Mailhouse Operator TIME STAMP: Total time spent 10 minutes in direct floor time; >50% of time was spent in spiritual care. Kaila Macias 12/08/2022 9:31 * Greer Hooks MD - 12/08/2022 0722 EDT Cardiology Progress note Service Date: 12/08/2022 Admit Date: 12/03/2022 22:09 Reason for Admission: 72 y.o. female admitted with a chief complaint of chest pain and now with a principal diagnosis of NSTEMI. Events/ Procedures in the last 24 Hours: NM-PET with regionally heterogeneous abnormalities suggesting diffuse obstructive coronary disease Subjective/Objective Subjective Feeling well this AM. Denies chest pain, SOB, palpitations. Feels winded when she takes a shower but not with walking. Review of Systems Pertinent items are noted in Subjective/HPI Objective Vital Signs Patient Vitals for the past 8 hrs: BP Heart Rate Resp Temp SpO2 O2 Device 12/08/22 0556 138/56 69 BPM 18 36.7 ??C (98 ??F) 98 % None 12/08/22 0050 113/53 58 BPM 16 -- 96 % None Weight: Patient Vitals for the past 8 hrs: Weight 12/08/22 0609 67.8 kg (149 lb 6.4 oz) Intake/Output Summary (Last 24 hours) at 12/08/2022 0722 Last data filed at 12/08/2022 0050 Gross per 24 hour Intake 417.7 ml Output -- Net 417.7 ml Physical Exam General:??Alert & awake, laying in bed in NAD. Resp:??Normal WOB, CTAB. CV: RRR, 1/6 systolic murmur best heard near the sternal borders. No JVD appreciated. Abd: Non-tender, soft, normal bowel sounds Skin: Normal color, temperature, turgor. Extr:??trace LE edema Is PICC or central line present? No, PICC/Central line not present. Medications Reviewed: Changes notable for holding ELEVATOR TENDER metoprolol due to long QTc Labs Reviewed: CBC: Recent Labs 12/06/22 0628 12/07/22 0641 12/08/22 0602 WBC 7.20 7.35 6.56 HGB 9.4* 9.1* 9.9* HCT 29.0* 28.4* 31.4* MCV 81 83 83 PLT 297 401* 431* BMP: Recent Labs 12/06/22 0628 12/07/22 0641 12/08/22 0602 CREATININE 0.89 0.94 0.96 BUN 15 14 14 NA 139 137 139 K 3.8 4.0 4.2 CL 108 109 107 CO2 20* 20* 20* CALCIUM 9.9 10.1 10.4 MG 2.0 1.9 2.0 Coags: No results for input(s): PROTIME, INR, PTT in the last 72 hours. LFTs: No results for input(s): ALT, AST, GGT, ALKPHOS, TBIL in the last 72 hours. Cardiac Biomarkers: No results for input(s): TROPONINI in the last 72 hours. Lipids: No results for input(s): CHOL, TRIG, HDL, LDLBASE, CHOLHDL in the last 72 hours. Non-Invasive Findings last 24 hours: Findings Echo: Abnormal, and reviewed by myself: EF 65%, severe asymmetric septal hypertrophy Telemetry: yes, Sinus rhythm with frequent extra beats/PVCs ECG: Sinus rhythm,1st degree AV block, LV hypetrophy, conduction changes stable compared to previous EKG Does the patient have active heart failure? yes, chronic, diastolic Assessment/Plan Assessment/Plan Fortunato Tanner is a 72 year old female with history significant for paroxysmal afib (on Eliquis), hypertrophic cardiomyopathy(w/o LVOTO on TTE on 12/02), mild , NSVT and Mobitz 1 AV block on ziopatch, recent admission for GIB (11/10), CVA , T2DM and Parkinson Disease who is admitted for NSTEMI. NM-PET suggestive of diffuse obstructive coronary disease, plan for [facility]. N-STEMI: HLD HTN Symptomatic, troponin peaked at .130 on 12/01, initially down-trended than began to uptrend from .97to peak of .112 on 12/02. Likely type 1 event iso NM-PET with regionally heterogeneous abnormalitiesand severe coronary calcifications suggestive of diffuse obstructive coronary disease. Lipid profile: cholesterol 107, HDL 40, LDL 29 - cont hep gtt - Telemetry class I - aspirin 81mg daily - Nitro 0.4mg SL q5min prn - Hx of statin intolerance, on Repatha ELEVATOR TENDER - LHC today - cont losartan 25 mg ?? Hypertrophic Cardiomyopathy -Cardiac MRI w/ velocity map: severe concentric hypertrophy with EF 60%, distal portion of LV completely obliterates in systole, no abnormal mitral valve motion or LVOT obstruction, aortic stenosis - Daily Mg - cont ELEVATOR TENDER Metoprolol tartrate 12.5 mg BID ?? Acute on chronic HFpEF Exacerbation: P/w e/o mild fluid overload consistent with HF exacerbation. Last TTE with EF 60-65% with findings consistent with diastolic dysfunction. BNP in ED at [facility] 3200. Has been euvolemic - start spironolactone 12.5 - cont jardiance 10 mg daily - Goal net even - Hold diuretic for now - Strict I/O, Daily weights - Daily BUN, Cr, lytes - Cardiac diet, Sodium restrict to 2g daily, fluid restrict to 2L daily ?? Duodenal ulcer Esophagitis Seen on EGD 11/12 - BID pantoprazole ?? Type 2 Diabetes: A1c 7.1 3 weeks ago. - Consistent carbohydrate diet - SSI - Lantus 20 U daily (ELEVATOR TENDER dose is 31) - Aspart 7 U TID ACHS - Hold ELEVATOR TENDER Metformin - losartan 25 mg as above 1st deg AV delay VTE Prophylaxis Pharmacologic Prophylaxis: Heparin gtt Discharge Plan Home or self care Greer Hooks MD PGY-3 #[id number] 12/08/22 7:22 Associated attestation - Von Walters MD - 12/08/2022 1508 EDT Attending Attestation: I have personally seen and examined Fortunato Hart , discussed the patient's management with the team, and agree with the findings and plan as outlined by Dr. Hooks. In addition, [facility] today revealed RCA stenosis concordant with the perfusion abnormality seen on PET, now s/pPCI. Von Walters MD * Greer Hooks MD - 12/07/2022 5822 EDT Cardiology Progress note Service Date: 12/07/2022 Admit Date: 12/03/2022 22:09 Reason for Admission: 72 y.o. female admitted with a chief complaint of chest pain and now with a principal diagnosis of NSTEMI. Events/ Procedures in the last 24 Hours: NAEO Subjective/Objective Subjective Fortunato is feeling well this AM. Seems to have sxs while taking a shower but not while walking around the floor. Denies chest pain, palpitations, trouble breathing at rest. Review of Systems Pertinent items are noted in Subjective/HPI Objective Vital Signs Patient Vitals for the past 8 hrs: BP Heart Rate Resp Temp SpO2 O2 Device 12/07/22 0454 133/62 66 BPM 18 36.6 ??C (97.8 ??F) 98 % None 12/07/22 0010 138/72 67 BPM 18 36.9 ??C (98.5 ??F) 97 % None Weight: Patient Vitals for the past 8 hrs: Weight 12/07/22 0618 69.1 kg (152 lb 4.8 oz) Intake/Output Summary (Last 24 hours) at 12/07/2022 07 Last data filed at 12/06/20222034 Gross per 24 hour Intake 120 ml Output -- Net 120 ml Physical Exam General:??Alert & awake, laying in bed in NAD. Resp:??Normal WOB, CTAB. CV: RRR, 1/6 systolic murmur best heard near the sternal borders. No JVD appreciated. Abd: Non-tender, soft, normal bowel sounds Skin: Normal color, temperature, turgor. Extr:??trace LE edema Is PICC or central line present? No, PICC/Central line not present. Medications Reviewed: Changes notable for holding ELEVATOR TENDER metoprolol due to long QTc Labs Reviewed: CBC: Recent Labs 12/05/22 1218 12/06/22 0612/07/22 0641 WBC 7.00 7.20 7.35 HGB 10.2* 9.4* 9.1* HCT 31.9* 29.0* 28.4* MCV 84 81 83 PLT 467* 297 401* BMP: Recent Labs 12/05/22 1218 12/06/22 0628 12/07/22 0641 CREATININE 0.89 0.89 0.94 BUN 15 15 14 NA 140 139 137 K 3.9 3.8 4.0 CL 104 108 109 CO2 25 20* 20* CALCIUM 10.5 9.9 10.1 MG -- 2.0 1.9 Coags: No results for input(s): PROTIME, INR, PTT in the last 72 hours. LFTs: No results for input(s): ALT, AST, GGT, ALKPHOS, TBIL in the last 72 hours. Cardiac Biomarkers: No results for input(s): TROPONINI in the last 72 hours. Lipids: No results for input(s): CHOL, TRIG, HDL, LDLBASE, CHOLHDL in the last 72 hours. Non-Invasive Findings last 24 hours: Findings Echo: Abnormal, and reviewed by myself: EF 65%, severe asymmetric septal hypertrophy Telemetry: yes, Sinus rhythm with frequent extra beats/PVCs ECG: Sinus rhythm,1st degree AV block, LV hypetrophy, conduction changes stable compared to previous EKG Does the patient have active heart failure? yes, chronic, diastolic Assessment/Plan Assessment/Plan Fortunato Tanner is a 72 year old female with history significant for paroxysmal afib (on Eliquis), hypertrophic cardiomyopathy(w/o LVOTO on TTE on 12/02), mild , NSVT and Mobitz 1 AV block on ziopatch, recent admission for GIB (11/10), CVA , T2DM and Parkinson Disease who is admitted for NSTEMI. N-STEMI: HLD HTN Symptomatic, troponin peaked at .130 on 12/01, initially down-trended than began to uptrend from .97to peak of .112 on 12/02. Possible troponin leak 2/2 true type 1 FL vs HCM. -Eliquis taken earlier (12/03) - Telemetry class I - aspirin 81mg daily - Heparin gtt - Nitro 0.4mg SL q5min prn - Hx of statin intolerance, on Repatha ELEVATOR TENDER - supplemental O2 if needed - NM-PET today - Lipid profile: cholesterol 107, HDL 40, LDL 29 ?? Hypertrophic Cardiomyopathy -Cardiac MRI w/ velocity map: severe concentric hypertrophy with EF 60%, distal portion of LV completely obliterates in systole, no abnormal mitral valve motion or LVOT obstruction, aortic stenosis -Daily Mg ?? Acute on chronic HFpEF Exacerbation: P/w e/o mild fluid overload consistent with HF exacerbation. Last TTE with EF 60-65%. BNP in ED at [facility] 3200 - ELEVATOR TENDER GDMT ??? Metoprolol tartrate 12.5 mg BID ??? Consider starting spironolactone ??? Empagliflozin 10 mg started ??? Entresto started - Goal net even - Hold diuretic for now - Strict I/O, Daily weights - Daily BUN, Cr, lytes - Cardiac diet, Sodium restrict to 2g daily, fluid restrict to 2L daily - Tele ?? Duodenal ulcer Esophagitis Seen on EGD 11/12 - BID pantoprazole ?? Type 2 Diabetes: A1c 7.1 3 weeks ago. - Consistent carbohydrate diet - SSI - Lantus 20 U daily (ELEVATOR TENDER dose is 31) - Aspart 7 U TID ACHS - Hold ELEVATOR TENDER Metformin 1st deg AV delay VTE Prophylaxis Pharmacologic Prophylaxis: Heparin gtt Discharge Plan Home or self care Greer Hooks MD PGY-3 #[id number] 12/07/22 7:48 Associated attestation - Von Walters MD - 12/07/2022 1616 EDT Attending Attestation: I have personally seen and examined Fortunato Hart, discussed the patient'smanagement with the team, and agree with the findings and plan as outlined by Dr. Hooks. In addition, PET MPI today shows abnormal perfusion, abnormal flow reserve, and severe coronary calcifications. While HCM can cause perfusion and flow abnormalities, the regionally heterogeneous abnormalities and the severe coronary calcifications are concerning for diffuse obstructive coronary disease. Thus we will proceed with C. Von Walters MD * Elsie Otoole - 12/06/2022 0127 EDT Cardiology Progress note Service Date: 12/06/2022 Admit Date: 12/03/2022 22:09 Reason for Admission: 72 y.o. female admitted with a chief complaint of chest pain and now with a principal diagnosis of NSTEMI. Events/ Procedures in the last 24 Hours: COLE Subjective/Objective Subjective Fortunato is feeling better and is not having any chest pain anymore. She did report some exertional dyspnea when walking to the shower. Was told that she had a few beats of tachycardia today but did not feel anything. Denies chest pressure, palpitations, dyspnea. Understands plan, awaiting heart cathtomorrow. Review of Systems Pertinent items are noted in Subjective/HPI Objective Vital Signs Patient Vitals for the past 8 hrs: BP Pulse Heart Rate Resp Temp SpO2 O2 Device 12/06/22 1259 126/83 70 70 BPM -- 36.7 ??C (98.1 ??F) 99 % None 12/06/22 0905 135/66 73 73 BPM 16 36.4 ??C (97.5 ??F) 96 % None Weight: No data found. Intake/Output Summary (Last 24 hours) at 12/06/2022 1447 Last data filed at 12/06/2022 0631 Gross per 24 hour Intake -- Output 200 ml Net -200 ml Physical Exam General:??Alert & awake, laying in bed in NAD. Resp:??Normal WOB, CTAB. CV: RRR, 1/6 systolic murmur best heard near the sternal borders. No JVD appreciated. Abd: Non-tender, soft, normal bowel sounds Skin: Normal color, temperature, turgor. Extr:??trace LE edema Is PICC or central line present? No, PICC/Central line not present. Medications Reviewed: Changes notable for holding ELEVATOR TENDER metoprolol due to long QTc Labs Reviewed: CBC: Recent Labs 12/04/22 0726 12/05/22 1218 12/06/22 0628 WBC 8.02 7.00 7.20 HGB 9.8* 10.2* 9.4* HCT 30.4* 31.9* 29.0* MCV 83 84 81 PLT 455* 467* 297 BMP: Recent Labs 12/03/22 2311 12/04/22 0726 12/05/22 1218 12/06/22 0628 CREATININE -- 0.90 0.89 0.89 BUN -- 18 15 15 NA -- 139 140 139 K -- 3.9 3.9 3.8 CL -- 104 104 108 CO2 -- 21* 25 20* CALCIUM -- 10.3 10.5 9.9 MG 1.9 -- -- 2.0 Coags: No results for input(s): PROTIME, INR, PTT in the last 72 hours. LFTs: No results for input(s): ALT, AST, GGT, ALKPHOS, TBIL in the last 72 hours. Cardiac Biomarkers: Recent Labs 06/15/23 2353 TROPONINI 0.105* Lipids: Recent Labs 12/03/22 2353 CHOL 107 TRIG 188* HDL 40* LDLBASE 29 CHOLHDL 2.7 Non-Invasive Findings last 24 hours: Findings Echo: Abnormal, and reviewed by myself: EF 65%, severe asymmetric septal hypertrophy Telemetry: yes, Sinus rhythm with frequent extra beats/PVCs ECG: Sinus rhythm,1st degree AV block, LV hypetrophy, conduction changes stable compared to previous EKG Does the patient have active heart failure? yes, chronic, diastolic Assessment/Plan Assessment/Plan N-STEMI: HLD HTN Symptomatic, troponin peaked at .130 on 12/01, initially down-trended than began to uptrend from .97to peak of .112 on 12/02 -Eliquis taken earlier (12/03) - Telemetry class I - repeat troponin - aspirin 81mg daily - Heparin gtt (non standard protocol due to taking Apixaban, goal 0.3 - 0.7) - Nitro 0.4mg SL q5min prn - Hx of statin intolerance, on Repatha ELEVATOR TENDER - supplemental O2 if needed - potential C Wednesday - NPO at midnight for potential stress test tomorrow - Lipid profile: cholesterol 107, HDL 40, LDL 29 ?? Hypertrophic Cardiomyopathy -Cardiac MRI w/ velocity map: severe concentric hypertrophy with EF 60%, distal ami of LV completely obliterates in systole, no abnormal mitral valve motion or LVOT obstruction, aortic stenosis -Daily Mg ?? Acute on chronic HFpEF Exacerbation: P/w e/o mild fluid overload consistent with HF exacerbation. Last TTE with EF 60-65%. BNP in ED at [facility] [place] [facility]200 - ELEVATOR TENDER GDMT ??? Metoprolol tartrate 12.5 mg BID ??? Consider starting spironolactone ??? Empagliflozin 10 mg started ??? Entresto started - Goal net negative 1-2L per 24 hours - Hold diuretic for now - Strict I/O, Daily weights - Daily BUN, Cr, lytes - Cardiac diet, Sodium restrict to 2g daily, fluid restrict to 2L daily - Tele - Check lipid panel - Consult HF education? Duodenal ulcer Esophagitis Seen on EGD 11/12 - BID pantoprazole ?? Type 2 Diabetes: A1c 7.1 3 weeks ago. - Consistent carbohydrate diet - SSI - Lantus 20 U daily(ELEVATOR TENDER dose is 31) - Aspart 7 U TID ACHS - Hold ELEVATOR TENDER Metformin 1st deg AV delay VTE Prophylaxis Pharmacologic Prophylaxis: Heparin gtt Discharge Plan Home or self care Elsie Otoole MD Internal Medicine PGY-1 Pager #[phone] ELSIE OTOOLE 12/06/2022 14:47 Associated attestation - Denice Nash MD - 12/06/2022 1502 EDT Attestation statement: I performed or was present during the gonzalez or critical portions of the visit and participated in the management of the patient. I agree with the findings and plan of care documented in the resident's/fellow's note. * Randy Sebastian MD - 12/05/2022 0743 EDT STAFF ATTESTATION: I, Randy Sebastian MD, have seen and examined this patient on 12/05. I have reviewed and edited the details outlined by my colleague, Dr. Guzman, in this note as needed and have put gonzalez changes. I would add the following gonzalez elements of the patient's history, physical exam and plan after my personal evaluation. Randy Sebastian MD 12/05/2022 14:01 Cardiology Progress note Service Date: 12/05/2022 Admit Date: 12/03/2022 22:09 Reason for Admission: 72 y.o. female admitted with a chief complaint of chest pain and now with a principal diagnosis of NSTEMI. Events/ Procedures in the last 24 Hours: NAEO Subjective/Objective Subjective Describes brief dyspnea on exertion and lightheadedness walking back to bed after shower, now resolved. Denies chest pressure, palpitations, dyspnea. Understands plan, apixaban washout. Review of Systems Pertinent items are noted in Subjective/HPI Objective Vital Signs Patient Vitals for the past 8 hrs: BP Heart Rate Resp Temp SpO2 O2 Device 12/05/22 0400 (!) 117/97 66 BPM 17 37 ??C (98.6 ??F) 97 % None Weight: Patient Vitals for the past 8 hrs: Weight 12/05/22 0605 68.1 kg (150 lb 1.6 oz) Intake/Output Summary (Last 24 hours) at 12/05/2022 0743 Last data filed at 12/04/2022 1017 Gross per 24 hour Intake -- Output 100 ml Net -100 ml Physical Exam General:??Alert & awake, laying in bed in NAD. Resp:??Normal WOB, CTAB. CV: RRR, 1/6 systolic murmur best heard near the sternal borders. No JVD appreciated. Skin: Normal color, temperature, turgor. Extr:??trace LE edema Is PICC or central line present? No, PICC/Central line not present. Medications Reviewed: Changes notable for holding ELEVATOR TENDER metoprolol due to long QTc Labs Reviewed: CBC: Recent Labs 12/03/22 0614 12/04/22 0726 WBC 5.91 8.02 HGB 8.7* 9.8* HCT 28.2* 30.4* MCV 86 83 PLT 407* 455* BMP: Recent Labs 12/03/22 0614 12/03/22 2311 12/04/22 0726 CREATININE 0.86 -- 0.90 BUN 16 -- 18 NA 138 -- 139 K 3.5 -- 3.9 CL 108 -- 104 CO2 23 -- 21* CALCIUM 9.1 -- 10.3 MG 1.6* 1.9 -- Coags: No results for input(s): PROTIME, INR, PTT in the last 72 hours. LFTs: No results for input(s): ALT, AST, GGT, ALKPHOS, TBIL in the last 72 hours. Cardiac Biomarkers: Recent Labs 12/02/22 2327 12/03/2214 12/03/22 2353 TROPONINI 0.112* 0.106* 0.105* Lipids: Recent Labs 12/03/22 2353 CHOL 107 TRIG 188* HDL 40* LDLBASE 29 CHOLHDL 2.7 Non-Invasive Findings last 24 hours: Findings Echo: Abnormal, and reviewed by myself: EF 65%, severe asymmetric septal hypertrophy Telemetry: yes, Sinus rhythm with frequent extra beats/PVCs ECG: Sinus rhythm,1st degree AV block, LV hypetrophy, conduction changes stable compared to previous EKG Does the patient have active heart failure? yes, chronic, diastolic Assessment/Plan Assessment/Plan N-STEMI: HLD HTN Symptomatic, troponin peaked at .130 on 12/01, initially down-trended than began to uptrend from .97to peak of .112 on 12/02 -Eliquis taken earlier (12/03) - Telemetry class I - repeat troponin - aspirin 81mg daily - Heparin gtt (non standard protocol due to taking Apixaban, goal 0.3 - 0.7) - Nitro 0.4mg SL q5min prn - Hx of statin intolerance, on Repatha ELEVATOR TENDER - supplemental O2 if needed - potential C Wednesday - NPO at midnight Wednesday - NPO now for potential stress test - Lipid profile: cholesterol 107, HDL 40, LDL 29 ?? HYpertrophic Cardiomyopathy -Cardiac MRI w/ velocity map ordered -Daily Mg ?? Acute on chronic HFpEF Exacerbation: P/w e/o mild fluid overload consistent with HF exacerbation. Last TTE with EF 60-65%. BNP in ED at [facility] [facility]200 - ELEVATOR TENDER GDMT ??? Metoprolol tartrate 12.5 mg BID ??? Consider starting spironolactone ??? Empagliflozin started ??? Dinero check Entresto - Goal net negative 1-2L per 24 hours - Hold diuretic for now - Strict I/O, Daily weights - Daily BUN, Cr, lytes - Cardiac diet, Sodium restrict to 2g daily, fluid restrict to 2L daily - Tele - Check lipid panel - Consult HF education? Duodenal ulcer Esophagitis Seen on EGD 11/12 - BID pantoprazole ?? Type 2 Diabetes: A1c 7.1 3 weeks ago. - Consistent carbohydrate diet - SSI - Lantus 20 U daily(ELEVATOR TENDER dose is 31) - Aspart 7 U TID ACHS - Hold ELEVATOR TENDER Metformin 1st deg AV delay VTE Prophylaxis Pharmacologic Prophylaxis: Heparin gtt Discharge Plan Home or self care VIKASH GUZMAN MD 12/05/2022 7:43 * Alysia Aguiar [facility] - 12/04/2022 1615 EDT Transitions of Care - Pharmacy Admission Medication Reconciliation Fortunato Hart is a 72 y.o. female admitted on 12/03/2022 for NSTEMI (non-ST elevated myocardial infarction) ([facility]) ([facility]) Pharmacist Interventions/Recommendations: 1. ELEVATOR TENDER med list updated 2. Pharmacy to call ~48hrs post discharge to check in with patient Medication History Obtained from: Patient (Self), Family Member and Pharmacy Medication reconciliation was performed. Discrepancies are noted in BOLD. Clarifications are noted in RED. Medications Medication Sig ??? acetaminophen (TYLENOL) 650 mg CR tablet 2 tab(s) orally twice a day, only as needed ??? apixaban (ELIQUIS) 5 mg tablet Take 1 Tablet by mouth 2 times daily. ? BD ULTRA-FINE MICRO PEN NEEDLE 32 gauge x 1/4 needle ??? blood glucose meter by [facility] [place] (non-drug; combo route) [...] glucose scanning reader (FREESTYLE VICKY 2 READER) [facility] [place] 1 Device by [facility] [place] (non-drug; comboroute) route daily. Dispense one reader ??? FREESTYLE VICKY 2 SENSOR kit USE 1 SENSOR EVERY 14 DAYS ??? gabapentin (NEURONTIN) 300 mg capsule Take 2 Capsules by mouth 2 times daily. ??? HUMALOG KWIKPEN INSULIN 100 unit/mL injectable pen 100-150 1 unit, 150-200 2 units, 200-250 3 units, 250-300 4 units (SS) ??? insulin glargine (LANTUS SOLOSTAR U-100 INSULIN) 100 unit/mL (3 mL) injection pen Inject 31 Units into the skin daily. ??? lactobacillus combination no.8 3 billion cell capsule Take 1 Capsule by mouth daily. ??? lancets/blood glucose strips (ONE TOUCH COMBO [facility]) -to test blood sugar - twice daily ??? magnesium oxide (MAG-OX) 400 mg (241.3 mg magnesium) tablet Take 1 Tablet by mouth daily. ??? metFORMIN (GLUCOPHAGE-XR) 750 mg ER tablet Take 1 Tablet by mouth 2 times daily. ??? metoprolol TARtrate (LOPRESSOR) 25 mg tablet Take 0.5 Tablets by mouth 2 times daily. (Patient taking differently: Take 0.5 Tablets by mouth daily.) ??? ONETOUCH ULTRA BLUE TEST STRIP test strips TEST BLOOD GLUCOSE THREE TIMES DAILY ??? OZEMPIC 1 mg/dose (4 mg/3 mL) pen injector Inject 0.75 mL into the skin once a week. Sundays. Per patient and recent fill history, is on lower dose of 0.25-0.5mg/dose ??? pantoprazole (PROTONIX) 40 mg tablet Take 1 Tablet by mouth 2 times daily. ??? REPATHA SYRINGE 140 mg/mL syringe INJECT 1 SYRINGE SUBCUTANEOUSLY EVERY 2 WEEKS ??? UNIFINEmily PENTIPS Preferred Pharmacy: [facility] - [address] ALYSIA AGUIAR RPH * Elsie Otoole - 12/04/2022 1432 EDT Cardiology Progress note Service Date: 12/04/2022 Admit Date: 12/03/2022 22:09 Reason for Admission: 72 y.o. female admitted with a chief complaint of chest pain and now with a principal diagnosis of NSTEMI. Events/ Procedures in the last 24 Hours: The patient was admitted last night. Subjective/Objective Subjective Ms. Hart is still reporting chest pressure today. She notes that it improved overnight but is getting worse again. She reports that she generally does not feel any palpitations or other symptoms when she is in afib with RVR. She denies any dyspnea, palpitations, leg swelling, fevers, nausea, vomiting, abdominal pain, or bleeding. She mentions that she has a hereditary heart disease and has spoken with her three children about being tested for it. Review of Systems Pertinent items are noted in Subjective/HPI Objective Vital Signs Patient Vitals for the past 8 hrs: BP Pulse Heart Rate Resp Temp SpO2 O2 Device 12/04/22 1415 -- -- 71 BPM -- -- 98 % -- 12/04/22 1400 -- -- 69 BPM -- -- 97 % -- 12/04/22 1345 -- -- 67 BPM -- -- 97 % -- 12/04/22 1330 -- -- 70 BPM -- -- 90 % -- 12/04/22 1315 -- -- 75 BPM -- -- 95 % -- 12/04/22 1207 (!) 147/70 73 73 BPM 18 36.8 ??C (98.2 ??F) 94 % None 12/04/22 0852 (!) 166/88 -- 85 BPM -- -- 98 % -- 12/04/22 0847 (!) 147/106 85 85 BPM 18 36.7 ??C (98 ??F) 97 % None Weight: Patient Vitals for the past 8 hrs: Weight 12/04/22 0653 68.4 kg (150 lb 12.8 oz) Intake/Output Summary (Last 24 hours) at 12/04/2022 1432 Last data filed at 12/04/2022 1017 Gross per 24 hour Intake -- Output 100 ml Net -100 ml Physical Exam General:??Alert & awake, laying in bed in NAD. Resp:??Normal WOB, CTAB. CV: RRR, 1/6 systolic murmur best heard near the sternal borders. No JVD appreciated. Skin: Normal color, temperature, turgor. Extr:??trace LE edema Is PICC or central line present? No, PICC/Central line not present. Medications Reviewed: Changes notable for holding ELEVATOR TENDER metoprolol due to long QTc Labs Reviewed: CBC: Recent Labs 12/02/22 0644 12/03/22 0614 12/04/22 0726 WBC 8.03 5.91 8.02 HGB 8.8* 8.7* 9.8* HCT 27.7* 28.2* 30.4* MCV 85 86 83 PLT 422* 407* 455* BMP: Recent Labs 12/02/22 0644 12/03/22 0614 12/03/22 2311 12/04/22 0726 CREATININE 0.90 0.86 -- 0.90 BUN 12 16 -- 18 NA 139 138 -- 139 K 3.9 3.5 -- 3.9 CL 109 108 -- 104 CO2 21* 23 -- 21* CALCIUM 10.2 9.1 -- 10.3 MG 1.7 1.6* 1.9 -- Coags: No results for input(s): PROTIME, INR, PTT in the last 72 hours. LFTs: No results for input(s): ALT, AST, GGT, ALKPHOS, TBIL in the last 72 hours. Cardiac Biomarkers: Recent Labs 12/02/22 2327 12/03/22 0614 12/03/22 2353 TROPONINI 0.112* 0.106* 0.105* Lipids: Recent Labs 12/03/22 2353 CHOL 107 TRIG 188* HDL 40* LDLBASE 29 CHOLHDL 2.7 Non-Invasive Findings last 24 hours: Findings Echo: Abnormal, and reviewed by myself: EF 65%, severe asymmetric septal hypertrophy Telemetry: yes, Sinus rhythm with frequent extra beats/PVCs ECG: Sinus rhythm,1st degree AV block, LV hypetrophy, conduction changes stable compared to previous EKG Does the patient have active heart failure? yes, chronic, diastolic Assessment/Plan Assessment/Plan N-STEMI: HLD HTN Symptomatic,troponin peaked at .130 on 12/01, initially down-trended than began to uptrend from .97 to peak of .112 on 12/02 -Eliquis taken earlier today (12/03) - Telemetry class I - repeat troponin - aspirin 81mg daily - Heparin gtt (non standard protocol due to taking Apixaban) - Nitro 0.4mg SL q5min prn - Hx of statin intolerance, on Repatha ELEVATOR TENDER - supplemental O2 if needed - potential C Wednesday - NPO at midnight Wednesday - NPO now for potential stress test - Lipid profile: cholesterol 107, HDL 40, LDL 29 ?? HYpertrophic Cardiomyopathy -Cardiac MRI w/ velocity map ordered -Daily Mg ?? Acute on chronic HFpEF Exacerbation: P/w e/o mild fluid overload consistent with HF exacerbation. Last TTE with EF 60-65%. BNP in ED at [facility] 3200 - ELEVATOR TENDER GDMT ??? Metoprolol tartrate 12.5 mg BID ??? Consider starting spironolactone ??? Dinero check Entresto and Jardiance - Goal net negative 1-2L per 24 hours - Hold diuretic for now - Strict I/O, Daily weights - Daily BUN, Cr, lytes - Cardiac diet, Sodium restrict to 2g daily, fluid restrict to 2L daily - Tele - Check lipid panel - Consult HF education? Duodenal ulcer Esophagitis Seen on EGD 11/12 - BID pantoprazole ?? Type 2 Diabetes: A1c 7.1 3 weeks ago. - Consistent carbohydrate diet - SSI - Lantus 20 U daily(ELEVATOR TENDER dose is 31) - Aspart 7 U TID ACHS - Hold ELEVATOR TENDER Metformin VTE Prophylaxis Pharmacologic Prophylaxis: Heparin gtt Discharge Plan Home or self care Elsie Otoole MD Internal Medicine PGY-1 Pager #[phone] ELSIE OTOOLE 12/04/2022 14:32 * Mary Falcon RN - 12/04/2022 6368 EDT 12/04:The following assessment was completed on 12/01 at the OSH; CM will continue to follow Mary Falcon RN [facility] [id number] Initial Case Management/Social Work Assessment and Discharge Plan/Readmission Risk Assessment ?? REASON FOR ADMISSION: Acute heart failure, unspecified heart failure type (HCC- CMS) ([facility]) Patient understands reason for admission: Yes ?? PATIENT INFO VERIFIED: PCP Type of housing (single family, condo, apartment, penitentiary, single room occupancy, [facility] funded hotel room, group senior care) - Home Who does the patient live with? Does the patient have access to their own bedroom/bathroom/kitchen - or is it shared with others? Yes Name of housing complex (ex [facility], [facility], etc)- n/a Housing Authority/Managing Organization - n/a Community Care Providers (case investigator, [facility] nurse, etc) name and contact information- n/a ? LIVING ARRANGEMENTS AND ACCESSIBILITY ISSUES: Living Arrangements: Spouse / significant other Levels: 1 Stairs to enter: 0 Handicap access: None Bathroom located on bedroom level?: Yes ?? What in home social supports are available to the patient? Spouse / significant other Is 24/ care available? Yes ?? ADVANCED DIRECTIVES, POA &/or COLST IN PLACE: Healthcare Directive: Yes, patient has advance directive for healthcare treatment Type of Healthcare Directive: Durable power of policy service coordinator for health care, Health care treatment directive Copy in Chart: Yes, new copy in paper chart @ [facility] Information Provided on Healthcare Directives: No Information on Healthcare Directives Requested: No DIRECTIVES FOR FINANCES: Directive For Finances: No ?? TRANSPORTATION: Transportation: Family Transportation Additional Details: vs. ambulance to [facility] Final Discharge Destination: Home Patient expects to be discharged to: Home ?? CULTURAL, MORMON and/or LANGUAGE factors affecting health care/discharge planning: Spiritual/Cultural Requests: None ?? Insurance Information: Medical Insurance: Yes Type of insurance: Medicare ([facility]) Referred to patient financial services: No ?? Nutrition: ?? DISCHARGE RISK ASSESSMENT: Total # selected above: ?? Tentative plan to address the risk of re-hospitalization for those at HIGH MODERATE RISK: ?? RAPT TOOL: Patient expects to be discharged to: Home ?? SBIRT: ?? FUNCTIONAL STATUS: Activities patient requires assistance: None Assistive Devices: Walker Walker type: Front wheel ?? COMMUNITY RESOURCES/SUPPORTS: Primary Care Provider: Bryant Crain PCP Verified: Specialists: Type of Home Health Services: None DME Provider: Pharmacy: [facility] - [address] [address] ?? [id number] - [address] [place] [id number] ?? Home Health: Other: ?? POST HOSPITAL TRANSITION PLAN: Patients PCP, pharmacy and demographics verified. Patient lives withher in a one story house with one step to enter. Patient has an advanced directive on file listing her as medical agent. Patient utilizes a walker and no other DME's. Patient is expected to transfer to [facility] today for a heart cath. CM to follow. ?? CHARITO MOCK 12/02/2022 9:57 documented in this encounter H&P Notes * Randy Sebastian MD - 12/03/2022 2730 EDT STAFF ATTESTATION: I, Randy Sebastian MD, have seen and examined this patient on 12/04. I have reviewed and edited the details outlined by my colleague, Dr. Tinajero, in this note as needed and have put gonzalez changes. I would add the following gonzalez elements of the patient's history, physical exam and plan after my personal evaluation. Randy Sebastian MD 12/04/2022 15:01 Cardiology History & Physical Admite Date: 12/03/2022 Date of Service: 12/03/2022 LOS: 0 days Chief Complaint: No chief complaint on file. Subjective/Objective Subjective HPI: Fortunato Hart is a 72 y.o. female with history significant for paroxysmal afib (on Eliquis),hypertrophic cardiomyopathy(w/o LVOTO on TTE on 12/02), mild , NSVT and Mobitz 1 AV block on ziopatch, recent admission for GIB (11/10), CVA , T2DM and Parkinson Disease presenting as a direct transfer from [facility] where she presented on 12/01 due to shortness of breath, and chest tightness that woke her up from her sleep 3- 4 days prior. Otherwise has been doing well, no recent GIB no melanotic stools since her discharge last month. Per [facility] note: She presented to the emergency department on December 01 with exertional dyspnea and chest tightness. She had a mildly elevated troponin of 0.09 and an elevated proBNP of 3200. She was admitted to the hospitalist service for management of presumed exacerbation of chronic diastolic failure. ?? Patient was started on IV Lasix twice daily. Her weight improved since admission. Her troponin was monitored and was noted to be increasing. It peaked at 0.11. Cardiology recommended transfer to [facility] for cardiac catheterization. She was not started on a heparin drip as she was already anticoagulatedon apixaban. Her chest discomfort resolved and her dyspnea improved. However, she did have an episode of chest pain on the morning of December 03 that resolved with administration of nitroglycerin. Ms. Hart said the episode of chest pain happened abruptly early this AM while lying in bed, she said it felt like a small child was sitting on her chest, and it radiated to her right arm. She hasexperience that same chest pressure/ pain before but said the radiating to her arm is new. She had diaphoresis and dyspnea during this episode. Endorses a history consistent with paroxysmal nocturnal dyspnea and orthopnea, requires 3-4 pillowsand keeps her window open most of the time to help her breathe while she is asleep. Pt states that they feel well overall. Denies current CP. EKG- SR with normal axis, first-degree AV block, nonspecific IVCD, prolonged QT, LVH, PVCs Review Of Systems: Full 10 point ROS obtained, pertinent findings noted in HPI. Prior Cardiac History: 11/20 [facility] cardiology clinic event monitor worn 10/13/2022-11/12/2022 which showed both AVB type I as well as periods of 2-1 blockwith HR 28-30 bpm, one pause lasting 3 seconds, AF burden <1%, and 5 nonsustained runs of ventricular tachycardia. ?? TTE 12/02/2022 ??? Left??Ventricle: The left ventricular cavity was [...] IVC/SVC: The inferior vena cava was dilated. Medications Medications Prior to Admission Medication Sig Dispense Refill Last Dose ??? acetaminophen (TYLENOL) 650 mg CR tablet 2 tab(s) orally twice a day, only as needed ??? apixaban (ELIQUIS) 5 mg tablet Take 1 Tablet by mouth 2 times daily. ??? aspirin 81 mg EC tablet Take 81 mg by mouth daily. (Patient not taking: Reported on 11/20/2022) ??? BD ULTRA-FINE MICRO PEN NEEDLE 32 gauge x 1/4 needle ??? blood glucose meter by misc (non-drug; combo route) route daily. One touch verio meter or best covered by insurance. 1 Each 0 ??? cetirizine (ZYRTEC) 10 mg tablet Take 1 Tablet by mouth daily. ??? Cholecalciferol, Vitamin D3, 10 mcg (400 unit) tablet Take 1 Tablet by mouth daily. ??? cyanocobalamin (VITAMIN B-12) 500 mcg tablet Take 1 Tablet by mouth daily. ??? flash glucose scanning reader (FREESTYLE VICKY 2 READER) misc 1 Device by [facility] (non-drug; comboroute) route daily. Dispense one reader 1 Each 0 ??? FREESTYLE VICKY 2 SENSOR kit USE 1 SENSOR EVERY 14 DAYS 6 Kit 3 ??? gabapentin (NEURONTIN) 300 mg capsule Take [...] ??? lancets/blood glucose strips (ONE TOUCH COMBO [facility]) -to test blood sugar - twice daily ??? magnesium oxide (MAG-OX) 400 mg (241.3 mg magnesium) tablet Take 1 Tablet by mouth daily. ??? metFORMIN (GLUCOPHAGE-XR) 750 mg ER tablet Take 1 Tablet by mouth 2 times daily. ??? metoprolol TARtrate (LOPRESSOR) 25 mg tablet Take 0.5 Tablets by mouth 2 times daily. (Patient taking differently: Take 0.5 Tablets by mouth daily.) 30 Tablet 0 ??? ONETOUCH ULTRA BLUE TEST STRIP test strips TEST BLOOD GLUCOSE THREE TIMES DAILY ??? OZEMPIC 1 mg/dose (4 mg/3 mL) pen injector Inject 0.75 mL into the skin once a week. Sundays ??? pantoprazole (PROTONIX) 40 mg tablet Take 1 Tablet by mouth 2 times daily. 120 Tablet 0 ??? REPATHA SYRINGE 140 mg/mL syringe INJECT 1 SYRINGE SUBCUTANEOUSLY EVERY 2 WEEKS ??? UNIFINE PENTIPS Allergies Allergies Allergen Reactions ??? Hydroxychloroquine Anaphylaxis ??? [...] ??? Propoxyphene N-Acetaminophen Other reaction(s): Hallucinations ??? Edtlakc-Wao-Wls Reductase Inhibitors ??? Trulicity [Dulaglutide] Gi Side effect Vitals: Patient Vitals for the past 24 hrs: BP Temp Temp src Resp SpO2 Height 12/03/22 2238 -- -- -- -- -- 162.6 cm (64) 12/03/22 2224 (!) 156/89 37.2 ??C (98.9 ??F) Oral 18 95 % -- Physical Examination: General: Alert & awake, laying in bed in NAD. Resp: Normal WOB, CTAB. CV: RRR, no extra heart sounds. No JVD appreciated. Skin: Normal color, temperature, turgor. Extr: trace LE edema Labs: CBC: Recent Labs 12/01/22 1303 12/02/22 0644 12/03/22 0614 WBC 8.07 8.03 5.91 RBC 3.23* 3.26* 3.29* HGB 8.7* 8.8* 8.7* HCT 28.0* 27.7* 28.2* MCV 87 85 86 MCH 26.9 27.0 26.4* MCHC 31.1* 31.8* 30.9* PLT 434* 422* 407* NEUTROABS 5.08 4.27 2.79 BMP: Recent Labs 12/01/22 1303 12/01/22 2312 12/02/22 0644 12/03/22 0614 NA 137 -- 139 138 K 4.8 -- 3.9 3.5 CL 106 -- 109 108 CO2 20* -- 21* 23 BUN 10 -- 12 16 CREATININE 0.77 -- 0.90 0.86 CALCIUM 9.9 -- 10.2 9.1 MG 1.4* 1.8 1.7 1.6* Cardiac Markers: Recent Labs 12/01/22 1303 12/01/22 1630 12/01/22 2312 12/02/22 0814 12/02/22 1601 12/02/22 2327 12/03/22 0614 12/03/22 2353 TROPONINI 0.090* 0.107* 0.130* 0.100* 0.097* 0.112* 0.106* 0.105* Hemoglobin A1c: Results in Past 30 Days Result Component Current Result Ref Range Previous Result Ref Range Hemoglobin A1c 7.1 (H) (11/11/2022) <5.7 % Not in Time Range Imaging: US LOWER VENOUS DUPLEX Result Date: 12/02/2022 No deep vein thrombosis identified within the right lower extremity. XR CHEST PORTABLE 1 VIEW Result Date: 12/01/2022 Tiny right pleural effusion. Assessment Fortunato Hart is a 72 y.o. female with PMHx significant for paroxysmal afib (on Eliquis), hypertrophic cardiomyopathy(w/o LVOTO on TTE on 12/02), mild , NSVT and Mobitz 1 AV block on ziopatch, recent admission for GIB (11/10), CVA , T2DM and Parkinson Disease presenting as a direct transfer from [facility] fpr NSTEMI. Plan N-STEMI: HLD HTN symptomatic,troponin peaked at .130 on 12/01, initially down-trended than began to uptrend from .97 to peak of .112 on 12/02 -Eliquis taken earlier today (12/03) - Telemetry class I - repeat troponin - aspirin 81mg daily - Heparin gtt - Nitro 0.4mg SL q5min prn - Hx of statin intolerance - on Repatha ELEVATOR TENDER - supplemental O2 if needed - potential [facility] Wednesday - NPO at midnight Wednesday - NPO now for potential stress test - ordered lipid profile HYpertrophic Cardiomyopathy -Cardiac MRI w/ velocity map ordered -Hold BB due to prolonged Qt -Daily Mg Acute on chronic HFpEF Exacerbation: P/w e/o mild fluid overload consistent with HF exacerbation. Last TTE with EF 60-65%. BNP in ED at [facility] 3200 - ELEVATOR TENDER GDMT ??? Hold Metoprolol due to prolonged Qt ??? Spironolactone ??? Consider ARB - listed under allergy but unclear why - Goal net negative 1-2L per 24 hours - Hold diuretic for now - Strict I/O, Daily weights - Daily BUN, Cr, lytes - Cardiac diet, Sodium restrict to 2g daily, fluid restrict to 2L daily - Tele - Check lipid panel - Consult HF education - Will likely need ischemic w/u Duodenal ulcer Esophagitis Seen on EGD 11/12 - BID pantoprazole Type 2 Diabetes: A1c 7.1 3 weeks ago. - Consistent carbohydrate diet - SSI - Lantus 20 U daily(ELEVATOR TENDER dose is 31) - Aspart 7 U TID ACHS - Hold ELEVATOR TENDER Metformin Code status: Full Code Diet: DIET HEART HEALTHY DIET NPO AFTER MIDNIGHT- Wednesday VTE Prophylaxis: Hep gtt, hold ELEVATOR TENDER apixaban Consults: None Discharge: Unclear, pending resolution of above Darion Tinajero MD PGY-2 Internal Medicine Epic secure chat, #[phone] 12/03/22 22:46 documented in this encounter Procedure Notes * Edgardo Ha MD - 12/08/2022 1600 EDT Dear Bryant Crani Fortunato Hart underwent cardiac catheterization at [facility] on 12/08/2022. She had presented with some chest pain and a slight troponin elevation. Nuclear stress test was moderately high risk. Catheterization demonstrated diffuse coronary disease. In the left coronary system this is moderatedisease noting a tight stenosis of small ramus branch. The culprit appeared to be a 90% narrowing of the mid right coronary artery. Right coronary was well repaired with placement of a single large drug-eluting stent. The patient will be on aspirin for a week, Plavix for the foreseeable future and apixaban will be resumed. We will be in touch with her discharge details. Thank you Edgardo Ha MD Cardiovascular Catheterization Laboratory Preliminary Report -- Catheterization Date of Service/Procedure: 12/08/2022 Attending Physician: Edgardo Ha MD Fellow: Eddie Bravo MD Pre-Procedure Diagnosis /NCDR Indication: Fortunato Hart is a 72 y.o. year old female with ACS <= 24 hrs. Chest Pain Symptom Assessment: Typical Angina NCDR Indication for PCI: NSTE - ACS If NOT STEMI or NSTE-ACS, Syntax Score: Low Heart Failure: No [facility]SA Clinical Frailty Scale: 3: Managing Well Prior Stress Testing? Yes, with a positive result. Is at high risk for cardiac mortality within oneyear . Anesthesia: A moderate level of anesthesia/conscious sedation was used in addition to local anesthesia. Access: Right radial artery Procedure: She was brought to [facility] Cardiac Catheterization Laboratory for the procedure: Diagnostic coronary/graft angiography, Coronary intervention (PCI) and OCT. Closure: TR Band Post-Procedure Condition: The condition of the patient was Fair. Complications: None. IV Contrast Total: 130 mL X-ray Dose: 292mGy Estimated Blood Loss: Minimal. Unless otherwise noted,there were no specimens removed, cultures obtained, or drains retained. Research Study: Patient is not enrolled in a research study. Diagnostic Cardiac Study Results Left main: Mild irregularities Left anterior descending: Mild irregularities Left circumflex: Small ramus proximal 80%, circumflex 50% Right coronary artery: dominant, mid culprit 90%. Mild ostial disease, PDA 50% Grafts: n/a Left Ventriculography and Hemodynamic Results None Endovascular Study Results None Post-Procedure Diagnostic Conclusion: PCI is indicated. Interventional Procedure: Using standard technique, the RCA vessel was stented using a 3.5x33 Xience MADONNA and f/u 4 mm balloon inflations. OCT used pre and post for assessment with final result showing good apposition and sizing. Plan: Aspirin 81mg PO daily. Clopidogrel 75 mg PO daily. Resume eliquis. Aspirin for one week. At the completion of the procedure, the attending physician has explained the findings, therapies, any complications and treatment plan to the patient. With the patients consent, all family members and patient support persons who were present at the conclusion of the procedure have been notified ofthese results and treatment plans as well. Post Procedure Follow Up: John Ha HOUSE CLEANER at [facility] cards Post Interventional Conclusion/Physician Disposition: (check one main category) Inpatient procedure, continue inpatient status (no procedural complication required) Edgardo Ha MD PagerNumber: 12/08/2022 16:00 documented in this encounter Miscellaneous Notes * Plan of Care - Tiffanie Fernandez, JALEN - 12/09/2022 0700 EDT D: Pt s/p LHC w/ 1 stent to RCA via RRA, site c/d/i. Denies CP, SOB, nausea, and all other pain. 1st deg AVB w/ intermittent episodes of Mobitz type 1 on tele, asymptomatic. Vitals are stable. A: Pt disconnected from tele, IV removed, discharge teaching and medication education provided. Meds brought to bedside. R: Pt discharged to home via . Denies further questions at this time. * Plan of Care - Mary Falcon RN - 12/09/2022926 EDT 12/09/22926 Medicare IM Notice IM notice status Patient received notification verbally and in writing while in hospital. IM notice given at discharge? Yes * Plan of Care - Mikal Murphy RN - 12/08/2022 9006 EDT Data: Assumed care at 1900. Pt admitted for NTEMI and now dx w/ ACVD . 1st degree AVB/ Mobitz I on tele. HR 60-90s. Pt s/p LHC on 12/08 w/ PCI at the RCA via RRA. Neuro intact. Pt is A&O x 3. CSMTintact. Mobility independent w/walker. Denied CP/SOB. Hyperglycemic over night with FS at 390 and 375. Action: Assessment as documented in flow sheet. Medications given per AUG. Tele monitored per policy. Assessed RRA site for hematoma/bleeding. MD notified for hyperglycemia. Additional insulin aspartgiven per order. Response: Pt is resting comfortably in bed. VSS. Safety measure checked. Call woods within reach. FSreduced to 260 at 0430. Pt remains pain free during the night. Plan to D/C today. Mikal Murphy 12/09/22 Problem: Daily Care Plan Goals Goal: Care Plan Documentation Flowsheets (Taken 12/08/20222023) Area of Focus: Pain/ Comfort Goal This Shift: No pain at the incision site Problem: High Fall Risk: Goal: Patient will Remain Free of Falls due to Med. Side Effects Outcome: Ongoing * Plan of Care - Loren Maier RN - 12/08/2022 1825 EDT Data: Patient NPO for [facility] this morning. VS stable and patient denies pain. AM meds admin and MDs rounded. On tele, patient SR with HR 50-60s with large 1st AVB. Action: Patient noted to have intermittent 2nd HB Type II at 1212 with HR 36-40 bpm and MD updated.Lopressor dc'd. RN admin steroids and benadryl per orders prior to C due to previous allergic reaction to contrast. 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 Response: Patient returned to [place] [id number] at 1620 with 1 MADONNA to RCA. TR band in place and VS stable. Call woods within reach and at bedside. Loren Maier RN * Plan of Care - Mikal Murphy RN - 12/07/2022 2312 EDT Data:??Assumed care at 1900.??Pt admitted for??NSTEMI.??1st degree AVB on tele. HR 60-70s. Neuro intact. Pt is A&O x 3. CSMT intact. Mobility??CG w/ walker.??Denied CP/SOB. Heparin gtt infusing at 9 ml/hr. at the bedside. ?? Action: Assessment as documented in flow sheet. Medications??given??per MAR. Tele monitored per policy. Continue to infuse heparin gtt per policy. VS assessment completed. Encourage patient to rest if SOB occurs. ?? Response:??Pt is resting comfortably in bed. VSS. ??Safety measure checked. SBP maintains at 120-130s. Heparin infused at the current rate. Call woods within reach. Plan for [facility] today. Mikal Murphy 12/08/22 Problem: Daily Care Plan Goals Goal: Care Plan Documentation Outcome: Ongoing Flowsheets (Taken 12/07/20222037) Area of Focus: Respiratory Goal This Shift: No SOB during the shift. Problem: HEMODYNAMIC STATUS Goal: Patient Has Stable VS & Fluid Balance Outcome: Ongoing * Plan of Care - Makayla Farfan RN - 12/07/2022 1858 EDT Problem: Daily Care Plan Goals Goal: Care Plan Documentation Outcome: Met This Shift Flowsheets (Taken 12/07/2022 0816) Area of Focus: Circulatory Status Goal This Shift: vss Data: Assumed care 0700. NSTEMI with troponin peaked at 0.112. Heparin gtt @ 900 units/hr UFH 0.65.NM stress done VSS BP 138/64 (BP Cuff Location: Right arm, BP Patient Position: Semi fowlers) Pulse 70 Temp 36.7 ??C (98.1 ??F) Resp 17 Ht 162.6 cm (64.02) Wt 69.1 kg (152 lb 4.8 oz) SpO2 95% BMI 26.13 kg/m?? Patient is alert & oriented x 4 with no complaints of pain or SOB, on RA clear lungs. Patient gets around with as contact guard. Plan for LHC tomorrow. NPO after MN Action: Assessments documented & medications given per AUG. Reviewed stress test procedure withpatient & . Monitored telemetry & VS for acute changes. Response: Patient tolerating ambulating & is comfortable MAKAYLA FARFAN RN 12/07/2022 18:54 * Plan of Care - Mikal Murphy RN - 12/07/2022 0507 EDT Data: Assumed care at 1900. Pt admitted for NSTEMI. 1st degree HB on tele. HR 60-70s. Neuro intact.Pt is A&O x 3. CSMT intact. Mobility CG w/ walker. Denied CP/SOB. Heparin gtt infusing at 9 ml/hr. Action: Assessment as documented in flow sheet. Medications given per MAR. Tele monitored per policy. Continue to infuse heparin gtt per policy. VS assessment completed. Response: Pt is resting comfortably in bed. VSS. Safety measure checked. SBP maintains at 130s. Heparin infused at the current rate. Call woods within reach. Plan for LHC/ NM stress test today. Mikal Murphy 12/07/22 Problem: Daily Care Plan Goals Goal: Care Plan Documentation 12/07/2022 0507 by Mikal Murphy, JALEN Outcome: Ongoing Flowsheets (Taken 12/07/2022 0010) Area of Focus: Circulatory Status Goal This Shift: SBP<140 Problem: High Fall Risk: Goal: Patient will Remain Free of Falls due to Med. Side Effects 12/07/2022 0507 by Mikal Murphy RN Outcome: Ongoing 12/06/2022 2141 by Mikal Murphy, JALEN Outcome: Ongoing * Plan of Care - Joy Velazco RN - 12/06/2022 1949 EDT Problem: Daily Care Plan Goals Goal: Care Plan Documentation Outcome: Ongoing Problem: HEMODYNAMIC STATUS Goal: Patient Has Stable VS & Fluid Balance Outcome: Ongoing Problem: High Fall Risk: Goal: Patient will Remain Free of Falls due to Med. Side Effects Outcome: Ongoing Problem: High Fall Risk: Goal: Patient Will Remain Free from Fall-Related Injury Outcome: Ongoing Problem: High Fall Risk: Goal: Patient will Remain Free of Falls due to Dizziness/Vertigo Outcome: Ongoing Problem: Sensory: Goal: Ability to compensate for vision loss will be supported Outcome: Ongoing Problem: High Fall Risk: Goal: Patient will Remain Free of Falls due to Altered Mobility Outcome: Ongoing * Plan of Care - Gabriela Montesinos RN - 12/06/2022 0528 EDT Data: patient admitted 12/03 for cp. Patient diagnosed with nstemi. Patient npo for possible LHC or stress test. Cardiac MRI complete. Patient on 9 ml heparin drip doac. Patient first degree rythem. 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 Action: patient telemetry monitored. Patient assessment and vs documented. Patient neuros baseline Response: patient agrees with plan of care GABRIELA MONTESINOS RN 12/06/2022 5:28 Problem: Daily Care Plan Goals Goal: Care Plan Documentation Outcome: Ongoing Problem: HEMODYNAMIC STATUS Goal: Patient Has Stable VS & Fluid Balance Outcome: Ongoing * Plan of Care - Joy Velazco RN - 12/05/2022 1854 EDT Problem: Daily Care Plan Goals Goal: Care Plan Documentation Outcome: Ongoing Problem: HEMODYNAMIC STATUS Goal: Patient Has Stable VS & Fluid Balance Outcome: Ongoing Problem: High Fall Risk: Goal: Patient will Remain Free of Falls due to Med. Side Effects Outcome: Ongoing Data: Patient assessed, vitals obtained WNL, steady gait via wheeled walker Action: Patient educated on safe ambulation and ADL's. Response: Hourly rounding, patient safety and pain management ongoing. JOY VELAZCO RN 12/05/2022 18:54 * Plan of Care - Tala Soriano RN - 12/05/2022 1747 EDT BP 127/70 Pulse 76 Temp 36.5 ??C (97.7 ??F) (Oral) Resp 16 Ht 162.6 cm (64.02) Wt 68.1 kg (150 lb 1.6 oz) SpO2 97% BMI 25.75 kg/m?? Data: patient admitted with NSTEMI/CHF. Cardiac MRI performed today. Possible LHC scheduled for December 07 Action: patient medicated as ordered. Ambulating in room with front wheel walker. Response: patient reports poor exercise tolerance continues. Denies chest pain. Resting comfortablyin bed. Will continue to monitor TALA SORIANO RN 12/05/2022 17:50 * Plan of Care - Gabriela Montesinos RN - 12/05/2022 0232 EDT Data: patient admitted 12/03 for cp. Patient diagnosed with nstemi. Patient npo for possible LHC or stress test. Cardiac MRI complete. Patient on 12ml heparin drip doac. Patient afib rythem. 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 Action: patient telemetry monitored. Patient assessment and vs documented. Patient neuros baseline Response: patient agrees with plan of care GABRIELA MONTESINOS RN 12/05/2022 2:32 Problem: Daily Care Plan Goals Goal: Care Plan Documentation Outcome: Ongoing Problem: HEMODYNAMIC STATUS Goal: Patient Has Stable VS & Fluid Balance Outcome: Ongoing * Plan of Care - Joy Velazco RN - 12/04/2022 1907 EDT Problem: Daily Care Plan Goals Goal: Care Plan Documentation Outcome: Ongoing Problem: HEMODYNAMIC STATUS Goal: Patient Has Stable VS & Fluid Balance Outcome: Ongoing Problem: High Fall Risk: Goal: Patient will Remain Free of Falls due to Med. Side Effects Outcome: Ongoing Problem: High Fall Risk: Goal: Patient Will Remain Free from Fall-Related Injury Outcome: Ongoing Problem: High Fall Risk: Goal: Patient will Remain Free of Falls due to Dizziness/Vertigo Outcome: Ongoing Problem: Sensory: Goal: Ability to compensate for vision loss will be supported Outcome: Ongoing Data: Patient assessed, vitals obtained WNL except elevated blood pressure. Action: Initial complaints of light headed/dizziness since resolved Response: Patient safety, hourly rounding and pain management ongoing. JOY VELAZCO RN 12/04/2022 19:07 * Heart Failure Education - Chandni Alcala RN - 12/04/2022 1453 EDT Heart failure nurse clinician reviewed heart failure education with pt at the bedside this morning.Please see Education tab for education provided and pt's response. Chandni Alcala RN, CHFN Heart Failure Nurse Clinician Secure Chat or pager #[phone] * Plan of Care - Teresa Silverman RN - 12/04/2022 0144 EDT Problem: Daily Care Plan Goals Goal: Care Plan Documentation Outcome: Ongoing Data: Pt transferred from [facility] for continued cardiac investigation. Dx NSTEMI. A/Ox3. Ind in the room. VSS - BP elevated at times. Tele SR with 1st deg HB, BBB, and freq PVC's. Denies CP at this time. Action: Ctm tele, VS. Response: Pt resting at this time. Plan for cardiac MRI later today. Possible NM stress test. Tentative [facility] for Wednesday. TERESA SILVERMAN RN 12/04/2022 1:44 * Plan of Care - Teresa Silverman RN - 12/03/2022 2338 EDT FOUR EYES SKIN ASSESSMENT Four Eyes skin assessment was performed on admission to the unit by Teresa Silverman RN and Alexsandra Owens RN. Patient has the following devices at the time of this assessment: NONE Device related pressure injury present? NO All skin intact. Last Jose Score: 19 12/03/2022 23:38 * Plan of Care - Jeremiah Sosa - 12/03/2022 2308 EDT Cardiology Accept Note Fortunato Hart is a 72 y.o. female with past medical history of hypertrophic CM, no resting outflow obstruction on recent TTE, pAF on Eliquis, mild , hx of Mobitz 1 AV Block and NSVT by Loop recorder placement, hx of GIB with recent admission to the [facility] in 11/10, CVA, 2DM, PD who presents asa transfer from [facility] with elevated troponin and intermittent chest pain. The patient has difficultyrelating events leading up to her presentation however says that she has had intermittent chest pain almost daily for some time now. Pain is not related to exertion and is not consistently relieved with rest. She states it feels like something sitting on my chest. She also notes dyspnea on exertion. She denies any resting shortness of breath. The patient had presented to [facility], there troponins were persistently positive and adynamic. BNP elevated to 3200. She received a single dose of IV Lasix. Patient was maintained on her home Eliquis and did not receive aspirin loading while at [facility]. Last dose 12/03 pm With regards to her recent history of GI bleed the patient had initially presented to [facility] with 1 week of melanotic stools and 2 syncopal episodes. She developed acute hematemesis while there requiring significant transfusion and FFP administration, she was then transferred to [facility]. EGD performed showed duodenal erosion, scattered petechiae in the stomach and no active bleeding. She was maintained on bid PPI and did not have recurrent bleeding or instability. In this context the patient hada significantly elevated troponin to 34.7 peak which decreased to 32 on next check. She was subsequently restarted on eliquis on 11/23. Patient had stable Hgbs at [facility] and no evident bleeding. Per RAHEEM Ha's note on 11/20 [facility] cardiology clinic event monitor worn 10/13/2022-11/12/2022 which showed both AVB type I as well as periods of 2-1 blockwith HR 28-30 bpm, one pause lasting 3 seconds, AF burden <1%, and 5 nonsustained runs of ventricular tachycardia. EKG-sinus rhythm with normal axis, first-degree AV block, nonspecific intraventricular conduction delay delay, prolonged QT, LVH, PVCs Exam- [id number], sitting up in bed, appears comfortable Neck-no JVP CV-regular rate and rhythm, systolic murmur appreciated throughout the precordium Resp-clear to auscultation Abd-soft, nontender Extremities-warm, no edema Neuro-awake, alert and oriented, mild memory difficulties, moving all extremities, speech is clear A/P The patient's presentation is consistent with cardiac chest pain and elevated troponin. The troponin pattern is persistently elevated, and does not demonstrate a clear rise/fall pattern, and is better categorized as chronic myocardial injury. She does endorse chest pain which is likely cardiac in na ture, for which the differential includes obstructive coronary disease vs related to HCM. LHC is indicated, particularly with the context of her recent admission and significantly elevated troponin. She appears to be tolerating the re initiation of eliquis without further bleeding. With regards to her presumed HCM diagnosis, the patient has not had a cardiac MRI to date. She has a history of short runs of NSVT on ferry terminal agent rhythm monitoring as well as 2 documented syncopal episodes, however both of which occurred in the context of her GIB. No clear ICD indication is currentlypresent, although MRI would be helpful in further categorizing her risk -stop eliquis, non standard heparin gtt protocol -cardiac MRI -start aspirin 81 mg daily -hold BB with prolonged QT, repeat EKG in the am and consider resuming -Consider EP consult regarding candidacy for ICD -LHC when patient has washed out of eliquis Plan of care to be discussed with Dr. Kristi Sosa Cardiology PGY4 I, JEREMIAH SOSA, have explained the risks and benefits of cardiac catheterization and/or intervention to the patient (or responsible constitution party) and have answered the patient's (or responsible constitution party's) questions. To the best of my knowledge, the patient (or responsible constitution party) has been adequately informed. The patient (or responsible constitution party) has consented to the interventional cardiac procedure. As partof the consent we reviewed that, like surgical procedures, interventional procedures require aggressive short term support to determine the potential benefits of the procedures. For this reason, the patient (or responsible constitution party) has agreed to remain FULL CODE for a minimum of 48 hours after the procedure. documented in this encounter Plan of Treatment Upcoming Encounters Date Type Department Care Team (Late st Contact Info) Description 03/08/2024 9:30 EDT Ancillary Procedure [facility] Cardiology - [place] [address] 03/08/2024 10:15 EDT Ancillary Procedure [facility] [place]iology [place] [address] 04/05/2024 10:00 EDT Ancillary Procedure [facility] [address] [place] [id number] 04/05/2024 10:00 EDT Office Visit [facility] [address] [place] [id number] Carlos Ha NP [address] [place] [address] [address] [place] [id number] Scheduled Orders Name Type Priority Associated Diagnoses Orde r Schedule EKG 12-LEAD ECG STAT One Time for 1 Occurrences starting 12/08/2022 until 12/08/2022 Scheduled Referrals Name Type Priority Associated Diagnoses Order Schedule AMB CONS/FOLLOW UP CARDIOLOGY Outpatient Referral Routine/Next Available NSTEMI (non-ST elevated myocardial infarction) ([facility]-CMS) Expected: 12/22/2022 (Approximate), Expires: 12/09/2023 AMB CONS/FOLLOW UP PRIMARY CARE PHYSICIAN - EXTERNAL Outpatient Referral Routine/Next Available NSTEMI (non-ST elevated myocardial infarction) ([facility]-CMS) Expected: 12/15/2022 (Approximate), Expires: 12/09/2023 PROVIDER FOLLOW-UP INSTRUCTIONS Outpatient Referral Routine Ordered: 12/08/2022 AMB CONS/FOLLOW UP CARDIAC REHABILITATION Outpatient Referral Routine/Next Available NSTEMI (non-ST elevated myocardial infarction) ([facility]-CMS) Expected: 12/16/2022 (Approximate), Expires: 12/09/2023 documented as of this encounter Procedures Procedure Name Priority Date/Time Associated Diagnosis Comments ECG REPORT - SCANNED 12/26/2022 18:22 EDT ECG REPORT - SCANNED 12/24/2022 9:21 EDT ECG REPORT - SCANNED 12/11/2022 10:17 EDT IMPLANT RECORD - SCANNED 12/11/2022 10:16 EDT ECG REPORT - SCANNED 12/10/2022 19:54 EDT POCT GLUCOSE, INTERFACED Routine 12/09/2022 12:07 EDT POCT GLUCOSE, INTERFACED Routine 12/09/2022 7:04 EDT MAGNESIUM Routine 12/09/2022 6:32 EDT BASIC METABOLIC PANEL (BMP) Routine 12/09/2022 6:32 EDT COMPLETE BLOOD COUNT Routine 12/09/2022 6:31 EDT POCT GLUCOSE, INTERFACED Routine 12/09/2022 4:22 EDT POCT GLUCOSE, INTERFACED Routine 12/08/2022 23:55 EDT POCT GLUCOSE, INTERFACED Routine 12/08/2022 21:17 EDT EKG 12-LEAD Routine 12/08/2022 18:48 EDT POCT GLUCOSE, INTERFACED Routine 12/08/2022 16:44 EDT OCT Routine 12/08/2022 15:47 EDT NSTEMI (non-ST elevated myocardial infarction) (HCC-CMS) CARDIAC CATHETERIZATION Routine 12/09/19 15:47 EDT NSTEMI (non-ST elevated myocardial infarction) (HCC-CMS) CARDIAC CATHETERIZATION Routine 12/09/19 15:47 EDT NSTEMI (non-ST elevated myocardial infarction) (HCC-CMS) EKG 12-LEAD Routine 12/08/2022 13:01 EDT POCT GLUCOSE, INTERFACED Routine 12/08/2022 12:21 EDT ECG REPORT - SCANNED 12/08/2022 12:18 EDT HEPARIN LEVEL - UNFRACTIONATED HEPARIN STAT 12/08/2022 6:02 EDT COMPLETE BLOOD COUNT Routine 12/08/2022 6:02 EDT MAGNESIUM Routine 12/08/2022 6:02 EDT BASIC METABOLIC PANEL (BMP) Routine 12/08/2022 6:02 EDT POCT GLUCOSE, INTERFACED Routine 12/08/2022 6:00 EDT POCT GLUCOSE, INTERFACED Routine 12/08/2022 0:26 EDT POCT GLUCOSE, INTERFACED Routine 12/07/2022 21:11 EDT POCT GLUCOSE, INTERFACED Routine 12/07/2022 16:32 EDT NM CARD PET PHARM MULT STUDIES CMP W/AQMBF AND CALCIUM SCORING Routine 12/07/2022 14:28 EDT Chest pain, unspecified type POCT GLUCOSE, INTERFACED Routine 12/07/2022 13:19 EDT HEPARIN LEVEL - UNFRACTIONATED HEPARIN STAT 12/07/2022 6:41 EDT COMPLETE BLOOD COUNT Routine 12/07/2022 6:41 EDT MAGNESIUM Routine 12/07/2022 6:41 EDT BASIC METABOLIC PANEL (BMP) Routine 12/07/2022 6:41 EDT POCT GLUCOSE, INTERFACED Routine 12/07/2022 6:09 EDT POCT GLUCOSE, INTERFACED Routine 12/06/2022 21:14 EDT POCT GLUCOSE, INTERFACED Routine 12/06/2022 16:36 EDT POCT GLUCOSE, INTERFACED Routine 12/06/2022 13:26 EDT POCT GLUCOSE, INTERFACED Routine 12/06/2022 12:17 EDT HEPARIN LEVEL - UNFRACTIONATED HEPARIN STAT 12/06/2022 12:09 EDT POCT GLUCOSE, INTERFACED Routine 12/06/2022 9:16 EDT POCT GLUCOSE, INTERFACED Routine 12/06/2022 8:12 EDT COMPLETE BLOOD COUNT Routine 12/06/2022 6:28 EDT MAGNESIUM Routine 12/06/2022 6:28 EDT BASIC METABOLIC PANEL (BMP) Routine 12/06/2022 6:28 EDT HEPARIN LEVEL - UNFRACTIONATED HEPARIN STAT 12/06/2022 0:07 EDT POCT GLUCOSE, INTERFACED Routine 12/05/2022 21:08 EDT POCT GLUCOSE, INTERFACED Routine 12/05/2022 16:28 EDT HEPARIN LEVEL - UNFRACTIONATED HEPARIN STAT 12/05/2022 12:18 EDT COMPLETE BLOOD COUNT Routine 12/05/2022 12:18 EDT BASIC METABOLIC PANEL (BMP) Routine 12/05/2022 12:18 EDT POCT GLUCOSE, INTERFACED Routine 12/05/2022 11:34 EDT HEPARIN LEVEL - UNFRACTIONATED HEPARIN STAT 12/05/2022 2:48 EDT POCT GLUCOSE, INTERFACED Routine 12/05/2022 0:07 EDT POCT GLUCOSE, INTERFACED Routine 12/04/2022 20:36 EDT POCT GLUCOSE, INTERFACED Routine 12/04/2022 19:41 EDT POCT GLUCOSE, INTERFACED Routine 12/04/2022 18:03 EDT MR CARDIAC W WO CONTRAST W VELOCITY MAP Routine 12/04/2022 14:18 EDT HEPARIN LEVEL - UNFRACTIONATED HEPARIN STAT 12/04/2022 12:40 EDT POCT GLUCOSE, INTERFACED Routine 12/04/2022 12:26 EDT POCT GLUCOSE, INTERFACED Routine 12/04/2022 7:55 EDT VITAMIN D (25,[place]) Routine 12/04/2022 7:2 6 EDT COMPLETE BLOOD COUNT Routine 12/04/2022 7:26 EDT BASIC METABOLIC PANEL (BMP) Routine 12/04/2022 7:26 EDT TROPONIN I Routine 12/03/2022 23:53 EDT HEPARIN LEVEL - UNFRACTIONATED HEPARIN STAT 12/03/2022 23:53 EDT LIPID PROFILE (INCLUDES CHOLESTEROL, TRIGLYCERIDES, HDL, LDL) Routine 12/03/2022 23:53 EDT MAGNESIUM Routine 12/03/2022 23:11 EDT EKG 12-LEAD Routine 12/03/2022 22:36 EDT documented in this encounter Results * ECG REPORT - SCANNED (12/26/2022 18:22 EDT) 12/26/2022 18:2 2 EDT Scan 2 Marketing Support Specialist PROCEDURE/MINOR CROW GICAL ORDERABLES * ECG REPORT - SCANNED (12/24/2022 9:21 EDT) 12/24/2022 9:21 EDT Scan 2 Marketing Support Specialist PROCEDURE/MINOR CROW GICAL ORDERABLES * ECG REPORT - SCANNED (12/11/2022 10:17 EDT) 12/11/2022 10:1 7 EDT Scan 2 Marketing Support Specialist PROCEDURE/MINOR CROW GICAL ORDERABLES * IMPLANT RECORD - SCANNED (12/11/2022 10:16 EDT) 12/11/2022 10:1 6 EDT Scan 2 Marketing Support Specialist PROCEDURE/MINOR CROW GICAL ORDERABLES * ECG REPORT - SCANNED (12/10/2022 19:54 EDT) 12/10/2022 19:5 4 EDT Scan 2 Marketing Support Specialist PROCEDURE/MINOR CROW GICAL ORDERABLES * (ABNORMAL) POCT GLUCOSE, INTERFACED (12/09/2022 12:07 EDT) Glucose, POC 204(H) 70 - 100 mg/dL 12/09/2022 12:08 EDT [facility] HN LAB POC COMMENT (GLUCOSE) Test Performed by Nursing Services 12/09/2022 12:08 EDT [facility] Blood CAPILLARY BLOOD / Unknown 12/09/2022 12:07 EDT 12/09/2022 12:08 EDT Darion Tinajero MD POINT OF CARE TEST O RDERABLES Performing Organization Address City/[facility]/ZIP Co de Phone Number [facility] [address] [place] [address] * (ABNORMAL) POCT GLUCOSE, INTERFACED (12/09/2022 7:04 EDT) Glucose, POC 227(H) 70 - 100 mg/dL 12/09/2022 7:06 EDT [facility] HN LAB POC COMMENT (GLUCOSE) Test Performed by Nursing Services 12/09/2022 7:06 EDT [facility] Blood CAPILLARY BLOOD / Unknown 12/09/2022 7:04 EDT 12/09/2022 7:06 EDT Darion Tinajero MD POINT OF CARE TEST O RDERABLES [facility] [address] [place] [address] * MAGNESIUM (12/09/2022 6:32 EDT) Magnesium 2.2 1.7 - 2.8 mg/dL 12/09/2022 7:30 EDT [facility] Blood VENOUS BLOOD / Unknown Venipuncture / Unknown 12/09/2022 6:32 EDT 12/09/2022 7:00 EDT Vikash Guzman MD CHEMISTRY & BLOOD GA S ORDERABLES [facility] [address] [place] [address] * (ABNORMAL) BASIC METABOLIC PANEL (BMP) (12/09/2022 6:32 EDT) Pathologist [facility] Sodium 138 136 - 145 mmol/L 12/09/2022 7:30 EDT [facility] Potassium 4.3 3.5 - 5.0 mmol/L 12/09/2022 7:30 [facility] Chloride 107 96 - 110 mmol/L 12/09/2022 7:30 T [facility] CO2 Total 19(L) 22 - 32 mmol/L 12/09/2022 7:30 [facility] Anion Gap 12 5 - 14 mmol/L 12/09/2022 7:30 [facility] Glucose 211(H) 70 - 100 mg/dl 12/09/2022 7:30 [facility] Calcium 10.5 8.5 - 10.5 mg/dL 12/09/2022 7:30 [facility] BUN 15 10 - 26 mg/dL 12/09/2022 7:30 [facility] Creatinine 0.95 0.52 - 1.04 mg/dL 12/09/2022 7:30 [facility] eGFR 64 >60 mL/min/1.73 m2 12/09/2022 7:30 T [facility] Blood VENOUS BLOOD / Unknown Venipuncture / Unknown 12/09/2022 6:32 EDT 12/09/2022 7:00 EDT Darion Tinajero MD CHEMISTRY & BLOOD GA S ORDERABLES Performing Organization Address City/State/[facility] Co de Phone Number [facility] [address] [place] [address] * (ABNORMAL) COMPLETE BLOOD COUNT (12/09/2022 6:31 EDT) WBC 7.64 4.00 - 12.40 K/cmm 12/09/2022 6:57 EDT [facility] RBC 3.47(L) 3.86 - 5.04 M/cmm 12/09/2022 6:57 EDT [facility] Hemoglobin 9.1(L) 11.6 - 15.2 g/dL 12/09/2022 6:57 EDT [facility] HCT 28.1(L) 34.9 - 44.4 % 12/09/2022 6:57 EDT [facility] MCV 81 81 - 98 fL 12/09/2022 6:57 EDT [facility] MCH 26.2(L) 26.7 - 33.3 pg 12/09/2022 6:57 EDT [facility] MCHC 32.4 32.1 - 35.9 g/dL 12/09/2022 6:57 EDT [facility] RDW-CV 15.1(H) <14.7 % 12/09/2022 6:57 EDT [facility] RDW-SD 44.0 <50.4 fl 12/09/2022 6:57 EDT [facility] PLT 470(H) 141 - 377 K/cmm 12/09/2022 6:57 EDT [facility] MPV 10.3 9.5 - 12.7 fL 12/09/2022 6:57 EDT [facility] Blood VENOUS BLOOD / Unknown Venipuncture / Unknown 12/09/2022 6:31 EDT 12/09/2022 6:51 EDT Darion Tinajero MD HEMATOLOGY & PF4 ORD ERABLES [facility] [address] [place] [address] * (ABNORMAL) POCT GLUCOSE, INTERFACED (12/09/2022 4:22 EDT) Glucose, POC 260(H) 70 - 100 mg/dL 12/09/2022 4:24 EDT [facility] HN LAB POC COMMENT (GLUCOSE) Test Performed by Nursing Services 12/09/2022 4:24 EDT [facility] Blood CAPILLARY BLOOD / Unknown 12/09/2022 4:22 EDT 12/09/2022 4:24 EDT Von Walters MD POINT OF CARE TEST ORDERABLES Performing Organization Address City/[facility]/ZIP Co de Phone Number [facility] [address] [place] [address] * (ABNORMAL) POCT GLUCOSE, INTERFACED (12/08/2022 23:55 EDT) Glucose, POC 375(H) 70 - 100 mg/dL 12/08/2022 23:56 EDT [facility] HN LAB POC COMMENT (GLUCOSE) Test Performed by Nursing Services 12/08/2022 23:56 EDT [facility] Blood CAPILLARY BLOOD / Unknown 12/08/2022 23:55 EDT 12/08/2022 23:56 EDT Von Walters MD POINT OF CARE TEST ORDERABLES [facility] [address] [place] [address] * (ABNORMAL) POCT GLUCOSE, INTERFACED (12/08/2022 21:17 EDT) Glucose, POC 390(H) 70 - 100 mg/dL 12/08/2022 21:19 EDT [facility] HN LAB POC COMMENT (GLUCOSE) Test Performed by Nursing Services 12/08/2022 21:19 EDT [facility] Blood CAPILLARY BLOOD / Unknown 12/08/2022 21:17 EDT 12/08/2022 21:19 EDT Darion Tinajero MD POINT OF CARE TEST O RDERABLES [facility] [address] [place] [address] * EKG 12-LEAD (12/08/2022 18:48 EDT) 12/08/2022 18:4 8 EDT Narrative [facility] EKG - 12/10/2022 13:41 EDT ? [facility] ? Test Date: ?2022-12-08 Pat Name: ? FORTUNATO TANNER ?Department: ?? [facility] ? Room: ? [id number] Gender: ? Female ? Cath Lab Tech: ?? [id number] : ?1950 ? Requested By: KRISTI RODRIGUEZ Order Number: [id number] ? Oleksandr HAY: ?? RANDY SEBASTIAN MD ? Measurements Intervals ?Fancy Gap ? Rate: ? 75 ? P: ? CT: ? 0 ?QRS: ?-21 QRSD: ? 121 ?T: ?138 QT: ? 429 ? QTc: ?482 ? Interpretive Statements SINUS RHYTHM WITH FIRST DEGREE AVB LEFT VENTRICULAR HYPERTROPHY AND ST-T CHANGE POSSIBLE SEPTAL MYOCARDIAL INFARCTION , PROBABLY OLD I reviewed the tracing and have either agreed or edited the findings in this report. Electronically Signed On 12-10-2022 13:41:55 EDT by RANDY SEBASTIAN MD. Procedure Note Randy Sebastian MD - 12/10/2022 [facility] Test Date: 2022-12-08 Pat Name: FORTUNATO HART Department: [facility] Room: [id number] Gender: Female Cath Lab Tech: [id number] : 1950 Requested By: KRISTI ADAN Order Number: [id number] Reading MD: RANDY SEBASTIAN MD Measurements Intervals Fancy Gap Rate: 75 P: CT: 0 QRS: -21 QRSD: 121 T: 138 QT: 429 QTc: 482 Interpretive Statements SINUS RHYTHM WITH FIRST DEGREE AVB LEFT VENTRICULAR HYPERTROPHY AND ST-T CHANGE POSSIBLE SEPTAL MYOCARDIAL INFARCTION , PROBABLY OLD I reviewed the tracing and have either agreed or edited the findings inthis report. Electronically Signed On 12-10-2022 13:41:55 EDT by RANDY FOSTER. Von Walters MD CARDIAC ECG O RDERABLES [facility] EKG * (ABNORMAL) POCT GLUCOSE, INTERFACED (12/08/2022 16:44 EDT) Glucose, POC 139(H) 70 - 100 mg/dL 12/08/2022 16:46 EDT [facility]ATORY SERVICES HN LAB POC COMMENT (GLUCOSE) Test Performed by Nursing Services 12/08/2022 16:46 EDT [facility]ORY [facility] Blood CAPILLARY BLOOD / Unknown 12/08/2022 16:44 EDT 12/08/2022 16:46 EDT Darion Tinajero MD POINT OF CARE TEST O RDERABLES Performing Organization Address City/[facility]/ZIP Co de Phone Number [facility] [address] [place] [address] * OCT (12/08/2022 15:47 EDT) Anatomical Region Laterality Modality Environmental Economist Narrative 12/08/2022 15:47 EDT Refer to the primary case's report for the procedure summary. Elsie Otoole CARDIAC CATH ORDERAB LES * LEFT HEART CATH, PERCUTANEOUS CORONARY INTERVENTION (12/08/2022 15:47 EDT) Anatomical Region Laterality Modality Environmental Economist 12/08/2022 14:1 6 EDT Narrative 12/12/2022 10:05 EDT Cardiology [address] [place] [address] Catheterization Laboratory Study Patient: Fortunato Hart M ? Study Date: ?12/08/2022 ?Accession #: ? [id number] : ? 1950 Referring: Elsie Otoole Diagnostic Attending: ??Edgardo Ha Interventional Attending: ?? Edgardo Ha ATTESTATION: IDr. Eddie was the initial author of this report. Dr. Edgardo Ha was present and supervising for the entire procedure. I, Dr. Edgardo Ha have reviewed and agreed with the findings of this report. PROCEDURE PLAN: Based on the diagnostic study percutaneous coronary intervention is indicated. RESEARCH STUDY: Patient is not enrolled in any research studies. IMPRESSIONS: 1. Severe single vessel coronary artery disease. 2. Non ST-elevated myocardial infarction (NSTEMI). The culprit lesion ?? was identified, reperfusion was successfully achieved, and myocardial ?? function was restored. SUMMARY: 1. HPI and indications: Chest pain. Dyspnea. Nonsustained ventricular ?? tachycardia. Mgp-UB-zmmihloi myocardial infarction. Aortic stenosis. ?? Cerebrovascular disease. 2. Ramus intermedius: Proximal vessel lesion: There is an 80% stenosis. 3. Left circumflex: Mid-vessel lesion: There is a 50% stenosis. 4. Right coronary: Mid-vessel lesion: There is a 90%de kane stenosis. ?? This lesion is ulcerated and not a bifurcation lesion. There is KEERTHI ?? grade 3 flow (brisk flow) across the lesion. The distal vessel ?? supplies a large vascular territory. The lesion is a likely culprit ?? for the patient's clinical presentation and an ACC/AHA type C high ?? risk lesion for intervention. The lesion was stented (see 1st lesion ?? intervention), with balloon angioplasty. Following intervention, the ?? lesion has a residual stenosis of 0%, an excellent angiographic ?? appearance, and KEERTHI grade 3 flow (brisk flow). 5. Right posterior descending: Ostial lesion: There is a 50% stenosis. RECOMMENDATIONS: ACC recommendation: PCI w/o planned CABG. HISTORY: Chest pain. ??Dyspnea. ??Nonsustained ventricular tachycardia. Ygm-CG-ydllheoc myocardial infarction. ??Aortic stenosis. Cerebrovascular disease. ??PMH: ?? Myocardial infarction. ??Functional status: ?? Prior history of congestive heart failure. ??Risk factors: Hypertension. Diabetes mellitus; on therapy with insulin. Dyslipidemia. Allergies: ?? Iodinated Contrast allergy. ??Additional Allergies-1 allergy. ??Additional Allergies-2 allergy. LABS, PRIOR TESTS, PROCEDURES AND SURGERY: Serum potassium (K) of 4.2 mEq/l. ??Serum creatinine (current admission) of 0.96 mg/dl. ??Blood urea nitrogen of 14 mg/dl. ??Platelet count of 431 th/ul. ??Hematocrit of 31.4 %. ??Hemoglobin (pre-procedure) of 9.9 g/dl. Stress myocardial perfusion imaging. ? Abnormal. STUDY DATA: Location: ??Catheterization laboratory. Sex: female. Patient is 72yr old. Height: 162.6cm. Weight: 67.8kg. BSA: 1.76m^2. Procedures performed: ?Right radial artery access. ?Left coronary angiography. ?Right coronary angiography. ?Lesion intervention: ?? Percutaneous intervention on the 90% de kane stenosis in the mid right coronary. ?Balloon angioplasty. ?Interventional OCT examination. ?Stent placement. ?Interventional OCT examination. Balloon angioplasty. ANESTHESIA: Conscious sedation by cardiology staff. PROCEDURE: 1. Initial setup. The patient was brought to the laboratory in the ?? fasting state. A baseline ECG was recorded. Surface ECG leads, ?? automatic cuff blood pressure measurements, and pulse oximetric ?? signals were monitored. 2. Skin preparation. The planned puncture sites were prepped with ?? chlorhexidine and draped in the usual sterile manner. 3. Local anesthesia. Using 2% Lidocaine, local anesthetic was ?? administered to the access site(s). 4. Right radial artery access. A 6FR/.021 [place] Sheath Slender sheath ?? was advanced into the vessel. 5. Selective left coronary angiography. A 5 Fr Tig Catheter 4.0 catheter ?? was advanced into the left coronary vessel ostium under fluoroscopic ?? guidance. Contrast was injected. Images were obtained in multiple ?? projections. 6. Selective right coronary angiography. A 5 Fr Tig Catheter 4.0 ?? catheter was advanced into the right coronary vessel ostium under ?? fluoroscopic guidance. Contrast was injected. Images were obtained in ?? multiple projections. 7. Right radial artery hemostasis. Mechanical compression was applied. 1st lesion intervention: Percutaneous intervention on the 90% de kane stenosis in the mid right coronary. 1. Guider placement. A 6fr JR4 guiding catheter was successfully placed ?? into the ostium of the right coronary artery. 2. Balloon angioplasty. A 3.0/15 Euphora balloon was employed. The ?? balloon was placed across the lesion and given two inflations with a ?? maximum inflation pressure of 10atm. 3. Optical coherence tomography evaluation, in order to assess the ?? dimension and characteristics of the lesion to select an optimal ?? interventional device. An OCT imaging catheter was advanced into ?? position distal to the lesion. The imaging catheter was withdrawn at ?? a constant velocity as imaging was performed. 4. Stent placement. A 3.5/33 XIENCE SKYPOINT stent was advanced across ?? the lesion and deployed with two inflations and a maximum pressure of ?? 15atm. 5. Post-intervention optical coherence tomography evaluation. An OCT ?? imaging catheter was advanced into position distal to the lesion. The ?? imaging catheter was withdrawn at a constant velocity as imaging was ?? performed. Findings: no dissection; no thrombus. Based on the results ?? of this study, the stent was judged to be underexpanded, and ?? additional balloon inflations were performed. 6. Balloon angioplasty. A 4mm (D) x 15mm (L), NC EMERGE balloon was ?? employed. The balloon was placed across the lesion and given three ?? inflations with a maximum inflation pressure of 16atm. STUDY COMPLETION: The estimated blood loss was 10ml. All catheters inserted during the procedure were removed. The patient tolerated the procedure well and was discharged from the lab. There were no complications. ??Contrast: Isovue 130ml (total dose). ??Isovue 70ml (wasted). ??Fluoroscopy time: 12.6min. ??Fluoroscopy dose: ??29.2cGy. CORONARY ARTERIES: The coronary circulation is right dominant. Left main: ??Minor luminal irregularities. LAD: ??Minor luminal irregularities. Ramus intermedius: ??Proximal vessel lesion: There is an 80% stenosis. Left circumflex: ??Mid-vessel lesion: There is a 50% stenosis. Right coronary: ??Mid-vessel lesion: There is a 90%de kane stenosis. [...] were no site complications. Right posterior descending: ??Ostial lesion: There is a 50% stenosis. HEMODYNAMICS: + + + Stage description ? Condition1:Condition 1 - + + + Arterial pressure s/d (m) 101/49 (71) ? + + + * Electronically signed by Edgardo Ha MD 2022-12-12 10:05 Procedure Note Edgardo Ha MD - 12/12/[address] [place] [id number] Catheterization Laboratory Study Patient: Fortunato Hart M Study Date: 12/08/2022 : 1950 Referring: Elsie Otoole Diagnostic Attending: Edgardo Ha Interventional Attending: Edgardo Ha ATTESTATION: Dr. Eddie Shirley was the initial author of this report. Dr. Edgardo Ha was present and supervising for the entire procedure. Casper, Dr. Edgardo Ha have reviewed and agreed with the findings of this report. PROCEDURE PLAN: Based on the diagnostic study percutaneous coronary intervention is indicated. RESEARCH STUDY: Patient is not enrolled in any research studies. IMPRESSIONS: 1. Severe single vessel coronary artery disease. 2. Non ST-elevated myocardial infarction (NSTEMI). The culprit lesion was identified, reperfusion was successfully achieved, and myocardial function was restored. SUMMARY: 1. HPI and indications: Chest pain. Dyspnea. Nonsustained ventricular tachycardia. Xud-AL-hrlqwisq myocardial infarction. Aortic stenosis. Cerebrovascular disease. 2. Ramus intermedius: Proximal vessel lesion: There is an 80% stenosis. 3. Left circumflex: Mid-vessel lesion: There is a 50% stenosis. 4. Right coronary: Mid-vessel lesion: There is a 90%de kane stenosis. This lesion is ulcerated and not a bifurcation lesion. There is KEERTHI grade 3 flow (brisk flow) across the lesion. The distal vessel supplies a large vascular territory. The lesion is a likely culprit for the patient's clinical presentation and an ACC/AHA type Chigh risk lesion for intervention. The lesion was stented (see 1st lesion intervention), with balloon angioplasty. Following intervention, the lesion has a residual stenosis of 0%, an excellent angiographic appearance, and KEERTHI grade 3 flow (brisk flow). 5. Right posterior descending: Ostial lesion: There is a 50% stenosis. RECOMMENDATIONS: ACC recommendation: PCI w/o planned CABG. HISTORY: Chest pain. Dyspnea. Nonsustained ventricular tachycardia. Ayb-HQ-lmwffsxz myocardial infarction. Aortic stenosis. Cerebrovascular disease. PMH: Myocardial infarction. Functional status: Prior history of congestive heart failure. Risk factors: Hypertension. Diabetes mellitus; on therapy with insulin. Dyslipidemia. Allergies: Iodinated Contrast allergy. Additional Allergies-1 allergy. Additional Allergies-2 allergy. LABS, PRIOR TESTS, PROCEDURES AND SURGERY: Serum potassium (K) of 4.2 mEq/l. Serum creatinine (current admission) of 0.96 mg/dl. Blood urea nitrogen of 14 mg/dl. Platelet count of 431 th/ul. Hematocrit of 31.4 %. Hemoglobin (pre-procedure) of 9.9 g/dl. Stress myocardial perfusion imaging. Abnormal. STUDY DATA: Location: Catheterization laboratory. Sex: female. Patient is 72yr old. Height: 162.6cm. Weight: 67.8kg. BSA: 1.76m^2. Procedures performed: Right radial artery access. Left coronary angiography. Right coronary angiography. Lesion intervention: Percutaneous intervention on the 90% de kane stenosis in the mid right coronary. Balloon angioplasty. Interventional OCT examination. Stent placement. Interventional OCT examination. Balloon angioplasty. ANESTHESIA: Conscious sedation by cardiology staff. PROCEDURE: 1. Initial setup. The patient was brought to the laboratory in the fasting state. A baseline ECG was recorded. Surface ECG leads, automatic cuff blood pressure measurements, and pulse oximetric signals were monitored. 2. Skin preparation. The planned puncture sites were prepped with chlorhexidine and draped in the usual sterile manner. 3. Local anesthesia. Using 2% Lidocaine, local anesthetic was administered to the access site(s). 4. Right radial artery access. A 6FR/.021 [place] Sheath Slender sheath was advanced into the vessel. 5. Selective left coronary angiography. A 5 Fr Tig Catheter 4.0 catheter was advanced into the left coronary vessel ostium under fluoroscopic guidance. Contrast was injected. Images were obtained in multiple projections. 6. Selective right coronary angiography. A 5 Fr Tig Catheter 4.0 catheter was advanced into the right coronary vessel ostium under fluoroscopic guidance. Contrast was injected. Images were obtained in multiple projections. 7. Right radial artery hemostasis. Mechanical compression was applied. 1st lesion intervention: Percutaneous intervention on the 90% de kane stenosis in the mid right coronary. 1. Guider placement. A 6fr JR4 guiding catheter was successfully placed into the ostium of the right coronary artery. 2. Balloon angioplasty. A 3.0/15 Euphora balloon was employed. The balloon was placed across the lesion and given two inflations with a maximum inflation pressure of 10atm. 3. Optical coherence tomography evaluation, in order to assess the dimension and characteristics of the lesion to select an optimal interventional device. An OCT imaging catheter was advanced into position distal to the lesion. The imaging catheter was withdrawn at a constant velocity as imaging was performed. 4. Stent placement. A 3.5/33 XIENCE SKYPOINT stent was advanced across the lesion and deployed with two inflations and a maximum pressure of 15atm. 5. Post-intervention optical coherence tomography evaluation. An OCT imaging catheter was advanced into position distal to the lesion. The imaging catheter was withdrawn at a constant velocity as imaging was performed. Findings: no dissection; no thrombus. Based on the results of this study, the stent was judged to be underexpanded, and additional balloon inflations were performed. 6. Balloon angioplasty. A 4mm (D) x 15mm (L), NC EMERGE balloon was employed. The balloon was placed across the lesion and given three inflations with a maximum inflation pressure of 16atm. STUDY COMPLETION: The estimated blood loss was 10ml. All catheters inserted during the procedure were removed. The patient tolerated the procedure well and was discharged from the lab. There were no complications. Contrast: Isovue 130ml (total dose). Isovue 70ml (wasted). Fluoroscopy time: 12.6min. Fluoroscopy dose: 29.2cGy. CORONARY ARTERIES: The coronary circulation is right [...] The lesion is a likely culprit for thepatient's clinical presentation and an ACC/AHA type C high risk lesion for intervention. The lesion was stented (see 1st lesion intervention), with balloon angioplasty. Following intervention, the lesion has a residual stenosis of 0%, an excellent angiographic appearance, and KEERTHI grade 3 flow (brisk flow). There were no site complications. Right posterior descending: Ostial lesion: There is a 50% stenosis. HEMODYNAMICS: + + + Stage description Condition1:Condition 1 - + + + Arterial pressure s/d (m) 101/49 (71) + + + * Electronically signed by Edgardo Ha MD 2022-12-12 10:05 Elsie Otoole CARDIAC CATH ORDERAB LES * EKG 12-LEAD (12/08/2022 13:01 EDT) 12/08/2022 13:0 1 EDT [facility] EKG - 12/26/2022 14:49 EDT ? [facility] ? Test Date: ?2022-12-08 Pat Name: ? FORTUNATO TANNER ?Department: ?? [facility] ? Room: ? CL Gender: ? Female ? Cath Lab Tech: ?? [id number] : ?1950 ? Requested By: DELL LOPEZ [facility] Number: [id number] ? Oleksandr MD: ?? REILLY DUQUE MD PhD ? Measurements Intervals ?Fancy Gap ? Rate: ? 49 ? P: ? CT: ? 0 ?QRS: ?84 QRSD: ? 122 ?T: ?175 QT: ? 491 ? QTc: ?447 ? Interpretive Statements ATRIAL FIBRILLATION WITH SLOW VENTRICULAR RESPONSE MODERATE INTRAVENTRICULAR CONDUCTION DELAY MODERATE T-WAVE ABNORMALITY, CONSIDER LATERAL ISCHEMIA Compared to ECG 12/03/2022 22:36:18 Intraventricular conduction delay now present T-wave abnormality now present Possible ischemia now present Sinus rhythm no longer present First degree AV block no longer present Left ventricular hypertrophy no longer present ST (T wave) deviation no longer present Myocardial infarct finding no longer present I reviewed the tracing and have either agreed or edited the findings in this report. Electronically Signed On 12-26-2022 14:49:45 EDT by REILLY DUQUE MD PhD. Procedure Note Reilly Duque MD PhD - 12/26/2022 [facility] Test Date: 2022-12-08 Pat Name: FORTUNATO HART Department: [place] [address] Room: Gender: Female Cath Lab Tech: [id number] : 1950 Requested By: DELL BEAR Order Number: [id number] Reading MD: REILLY DUQUE [facility] Measurements Intervals Fancy Gap Rate: 49 P: CT: 0 QRS: 84 QRSD: 122 T: 175 QT: 491 QTc: 447 Interpretive Statements ATRIAL FIBRILLATION WITH SLOW VENTRICULAR RESPONSE MODERATE INTRAVENTRICULAR CONDUCTION DELAY MODERATE T-WAVE ABNORMALITY, CONSIDER LATERAL ISCHEMIA Compared to ECG 12/03/2022 22:36:18 Intraventricular conduction delay now present T-wave abnormality now present Possible ischemia now present Sinus rhythm no longer present First degree AV block no longer present Left ventricular hypertrophy no longer present ST (T wave) deviation no longer present Myocardial infarct finding no longer present I reviewed the tracing and have either agreed or edited the findings inthis report. Electronically Signed On 12-26-2022 14:49:45 EDT by LINDA HAY PhD. Eddie Damon CARDIAC ECG ORDERAB LES [facility] EKG * (ABNORMAL) POCT GLUCOSE, INTERFACED (12/08/2022 12:21 EDT) Glucose, POC 132(H) 70 - 100 mg/dL 12/08/2022 12:23 EDT [facility] LABORATORY SERVICES HN LAB POC COMMENT (GLUCOSE) Test Performed by Nursing Services 12/08/2022 12:23 EDT [facility] Blood CAPILLARY BLOOD / Unknown 12/08/2022 12:21 EDT 12/08/2022 12:22 EDT Darion Tinajero MD POINT OF CARE TEST O RDERABLES Performing Organization Address [facility] Co de Phone Number [facility] [address] [place] [address] * ECG REPORT - SCANNED (12/08/2022 12:18 EDT) 12/08/2022 12:1 8 EDT Scan 2 Marketing Support Specialist PROCEDURE/MINOR CROW GICAL ORDERABLES * HEPARIN LEVEL - UNFRACTIONATED HEPARIN (12/08/2022 6:02 EDT) Heparin Level-UFH 0.56 Therapeutic Range: 0.30 - 0.70 IU/mL 12/08/2022 6:41 EDT [facility] Comment:Unfractionated hepar in therapeutic range = 0.3-0.7 IU/ml - This test is not intended for monitoring direct Xa inhibitors, direct thrombin inhibitors, or fondaparinux.- Exogenous ATIII is NOT supplied in this assay. For unexpected or persistently low levels, consider measuring patient's ATIII level. Results will be overestimated in the presence of direct Xa inhibitors (rivaroxaban, apixaban, edoxaban). Blood VENOUS BLOOD / Unknown Venipuncture / Unknown 12/08/2022 6:02 EDT 12/08/2022 6:18 EDT Elsie Otoole HEMATOLOGY & PF4 ORD ERABLES Performing Organization Address [facility]/ZIP Co de Phone Number [facility] [address] [place] [address] * MAGNESIUM (12/08/2022 6:02 EDT) Magnesium 2.0 1.7 - 2.8 mg/dL 12/08/2022 7:10 EDT [facility] Blood VENOUS BLOOD / Unknown Venipuncture / Unknown 12/08/2022 6:02 EDT 12/08/2022 6:40 EDT Vikash Guzman MD CHEMISTRY & BLOOD GA S ORDERABLES [facility] [address] [place] [address] * (ABNORMAL) BASIC METABOLIC PANEL (BMP) (12/08/2022 6:02 EDT) Sodium 139 136 - 145 mmol/L 12/08/2022 7:10 [facility] Potassium 4.2 3.5 - 5.0 mmol/L 12/08/2022 7:10 [facility] Chloride 107 96 - 110 mmol/L 12/08/2022 7:10 [facility] CO2 Total 20(L) 22 - 32 mmol/L 12/08/2022 7:10 [facility] Anion Gap 12 5 - 14 mmol/L 12/08/2022 7:10 [facility] Glucose 188(H) 70 - 100 mg/dl 12/08/2022 7:10 [facility] Calcium 10.4 8.5 - 10.5 mg/dL 12/08/2022 7:10 [facility] BUN 14 10 - 26 mg/dL 12/08/2022 7:10 [facility] Creatinine 0.96 0.52 - 1.04 mg/dL 12/08/2022 7:10 [facility] eGFR 64 >60 mL/min/1.73 m2 12/08/2022 7:10 [facility] Blood VENOUS BLOOD / Unknown Venipuncture / Unknown 12/08/2022 6:02 EDT 12/08/2022 6:40 EDT Darion Tinajero MD CHEMISTRY & BLOOD GA S ORDERABLES Performing Organization Address City/[facility]/ZIP Co de Phone Number [facility] [address] [place] [address] * (ABNORMAL) COMPLETE BLOOD COUNT (12/08/2022 6:02 EDT) WBC 6.56 4.00 - 12.40 K/cmm 12/08/2022 6:31 [facility] RBC 3.80(L) 3.86 - 5.04 M/cmm 12/08/2022 6:31 [facility] Hemoglobin 9.9(L) 11.6 - 15.2 g/dL 12/08/2022 6:31 [facility] HCT 31.4(L) 34.9 - 44.4 % 12/08/2022 6:31 [facility] MCV 83 81 - 98 fL 12/08/2022 6:31 [facility] MCH 26.1(L) 26.7 - 33.3 pg 12/08/2022 6:31 [facility] MCHC 31.5(L) 32.1 - 35.9 g/dL 12/08/2022 6:31 [facility] RDW-CV 15.3(H) <14.7 % 12/08/2022 6:31 [facility] RDW-SD 45.6 <50.4 fl 12/08/2022 6:31 [facility] PLT 431(H) 141 - 377 K/cmm 12/08/2022 6:31 [facility] MPV 10.4 9.5 - 12.7 fL 12/08/2022 6:31 [facility] Blood VENOUS BLOOD / Unknown Venipuncture / Unknown 12/08/2022 6:02 EDT 12/08/2022 6:19 EDT Darion Tinajero MD HEMATOLOGY & PF4 ORD ERABLES [facility] [address] [place] [address] * (ABNORMAL) POCT GLUCOSE, INTERFACED (12/08/2022 6:00 EDT) Glucose, POC 193(H) 70 - 100 mg/dL 12/08/2022 6:01 EDT [facility] HN LAB POC COMMENT (GLUCOSE) Test Performed by Nursing Services 12/08/2022 6:01 EDT [facility] Blood CAPILLARY BLOOD / Unknown 12/08/2022 6:00 EDT 12/08/2022 6:01 EDT Darion Tinajero MD POINT OF CARE TEST O RDERABLES Performing Organization Address [facility] Co de Phone Number [facility] [address] [place] [address] * (ABNORMAL) POCT GLUCOSE, INTERFACED (12/08/2022 0:26 EDT) Glucose, POC 173(H) 70 - 100 mg/dL 12/08/2022 0:27 EDT [facility] HN LAB POC COMMENT (GLUCOSE) Test Performed by Nursing Services 12/08/2022 0:27 EDT [facility] Blood CAPILLARY BLOOD / Unknown 12/08/2022 0:26 EDT 12/08/2022 0:27 EDT Darion Tinajero MD POINT OF CARE TEST O RDERABLES Performing Organization Address [facility] Co de Phone Number [facility] [address] [place] [address] * (ABNORMAL) POCT GLUCOSE, INTERFACED (12/07/2022 21:11 EDT) Glucose, POC 152(H) 70 - 100 mg/dL 12/07/2022 21:12 EDT [facility] HN LAB POC COMMENT (GLUCOSE) Test Performed by Nursing Services 12/07/2022 21:12 EDT [facility] Blood CAPILLARY BLOOD / Unknown 12/07/2022 21:11 EDT 12/07/2022 21:12 EDT Von Walters MD POINT OF CARE TEST ORDERABLES Performing Organization Address City/[facility]/ZIP Co de Phone Number [facility] [address] [place] [address] * (ABNORMAL) POCT GLUCOSE, INTERFACED (12/07/2022 16:32 EDT) Glucose, POC 123(H) 70 - 100 mg/dL 12/07/2022 16:33 EDT [facility] HN LAB POC COMMENT (GLUCOSE) Test Performed by Nursing Services 12/07/2022 16:33 EDT [facility] Blood CAPILLARY BLOOD / Unknown 12/07/2022 16:32 EDT 12/07/2022 16:33 EDT Darion Tinajero MD POINT OF CARE TEST O RDERABLES Performing Organization Address City/[facility]/ZIP Co de Phone Number [facility] [address] [place] [address] * NM CARD PET PHARM MULT STUDIES CMP W/AQMBF AND CALCIUM SCORING (12/07/2022 14:28 EDT) Target HR 150 bpm [facility] PO[facility] T [facility] Pre test likelihood of obstructive CAD 19 [facility] POINT [facility] Baseline HR 65 bpm [facility] PO INT [facility] Baseline Systolic BP 113 mmHg [facility] Baseline Diastolic BP 43 mmHg [facility] Peak HR 77 bpm [facility] PO[facility] Percent HR 51 [facility] POI NT OF CARE Systolic BP 120 mmHg [facility] PO [facility] Peak Diastolic BP 48 mmHg [facility] Recovery HR 70 bpm [facility] PO [facility] Recovery BP 110 mmHg [facility] PO INT OF CARE Recovery Diastolic BP 47 mmHg [facility] POINT [facility] CARE CALATOT 1,073.00 [facility] POIN T [facility] C[facility] TID 1.4 [facility] POIN T [facility] C[facility] LAD Flow Number 1.89 [facility] POINT OF CARE LCX Myocardial Flow Number 1.65 [facility] POINT [facility] C[facility] RCA Number 1.16 [facility] POI NT OF CARE Overall Number 1.68 [facility] POINT OF CARE Nuc Stress EF 45 % [facility] POINT OF CARE Anatomical Region Laterality Modality Chest Positron Emissio n Tomography (PET) Narrative 12/07/2022 16:34 EDT ?Perfusion: There was a ??moderate intensity, medium sized reversible perfusion defect in the basal inferior, basal inferoseptal and mid inferior wall(s). There is evidence of transient ischemic dilation (TID). ?Function: Global LV function is mildly reduced. Post-stress ejection fraction is 45 %. There is was hypokinesis of the inferior wall . ?Stress ECG: Stress ECG was negative. ?Stress data: Maximal heart rate during stress was 77 (51 % of MPHR). ?There is severe coronary calcification. Agaston score: 1,073.[address] finding(s): small pericardial effusion. ?The myocardial flow reserve was 1.89 for the LAD, which was mildlyabnormal. The myocardial flow reserve was 1.65 for the LCX, which was abnormal. The myocardial flow reserve was 1.16 for the RCA, which was abnormal. The overall myocardial flow reserve was 1.68 which was abnormal. ?Perfusion??Defect: There was evidence of transient ischemic dilation (TID) with a value of 1.4 . Stress Function Comments Global LV function was mildly reduced. Global RV function was normal. Post- stress ejection fraction was 45 %. The left ventricle size was normal at stress. The right ventricle size was normal at stress. There was hypokinesis of the inferior wall . Rest Function Comments Global LV function was normal at rest. Global RV function was normal at rest. Baseline ECG There was normal sinus rhythm. Non-specific T wave changes were noted at baseline. There was first-degree AV block and incomplete right bundle branch block noted on the baseline ECG. There was no ectopy noted on the baseline ECG. Stress ECG There were no significant ST segment deviations noted during stress. There were no significant arrhythmias noted during stress. Recovery ECG There were no significant arrhythmias noted during recovery. Result ECG Stress ECG was negative. HPI and Indications Indications: asymptomatic. History: Fortunato Hart is a 72 y.o. female with PMHx significant for paroxysmal afib (on Eliquis), hypertrophic cardiomyopathy(w/o LVOTO on TTE on 12/02), mild , NSVT and Mobitz 1 AV block on ziopatch, recent admission for GIB (11/10), CVA , T2DM and Parkinson Disease presenting as a direct transfer from [facility] fpr NSTEMI. Today for NM PET, without CP or SOB. Patient Status Risk Factors Diabetes mellitus, dyslipidemia and hypertension. Stress Data Procedure: initial setup. A baseline ECG was recorded, ECG tracings were obtained using the Q-Stress 4 machine. Surface ECG leads and manual cuff blood pressure measurements were monitored. Lung sounds: Normal. Regadenoson. Pre test likelihood of obstructive CAD: 19 . The patient tolerated the procedure well and was discharged from the lab. Maximal heart rate during stress was 77 (51 % of MPHR). Medications Beta blockers, aspirin, NOAC, anticoagulants and injectable diabetic agents. Nuclear Stress Additional Findings There was severe coronary calcification. Agaston score: 1,073.[address] finding(s): small pericardial effusion. Myocardial Flow [place] The myocardial flow reserve was 1.89 for the LAD, which was mildlyabnormal. The myocardial flow reserve was 1.65 for the LCX, which was abnormal. The myocardial flow reserve was 1.16 for the RCA, which was abnormal. The overall myocardial flow reserve was 1.68 which was abnormal. Perfusion Defect There was a moderate intensity, medium sized reversible perfusion defect in the basal inferior, basal inferoseptal and mid inferior wall(s). There was evidence of transient ischemic dilation (TID) with a value of 1.4 . Image Protocol Myocardial perfusion imaging using PET/CT was performed. The study was a 1-day rest-stress study. Attenuation correction was used. The patient was imagined in the supine position. Additionally AQMBF was performed. Myocardial data validated, integrated and interpreted using independent software and evaluated by the radiologist/print line operator. Images acquired at rest and post stress were processed and reviewed. Nuc Impression There was abnormal perfusion. The relative perfusion suggests single vessel disease, but the abnormal myocardial blood flow reserve in all territories and the transient ischemic dilation are concerning for multivessel coronary disease and/or diffuse ischemia. Severe coronary calcifications were present by quantitative assessment. Abnormal study after pharmacological stress. Perfusion Scoring Resting Summed Score: 0 Percent Normal: 0.00% The left ventricular perfusion is normal. Perfusion Scoring Stress Summed Score: 6 Percent Normal: 8.82% Moderate count reduction in the following segments: basal inferoseptal, basal inferior and mid inferior. All other segments are normal. Perfusion Scores: SRS Score: 0 Percentage Abnormal: 0.00% Perfusion Scores: SSS Score: 6 Percentage Abnormal: 8.82% Perfusion Scores: SDS Score: 6 Percentage Abnormal: 8.82% Jeremiah Sosa CARDIAC NM ORDERABLE S * (ABNORMAL) POCT GLUCOSE, INTERFACED (12/07/2022 13:19 EDT) Glucose, POC 140(H) 70 - 100 mg/dL 12/07/2022 13:21 EDT [facility] HN LAB POC COMMENT (GLUCOSE) Test Performed by Nursing Services 12/07/2022 13:21 EDT [facility] Blood CAPILLARY BLOOD / Unknown 12/07/2022 13:19 EDT 12/07/2022 13:21 EDT Darion Tinajero MD POINT OF CARE TEST O RDERABLES [facility] [address] [place] [address] * HEPARIN LEVEL - UNFRACTIONATED HEPARIN (12/07/2022 6:41 EDT) [facility] Heparin Level-UFH 0.65 Therapeutic Range: 0.30 - 0.70 IU/mL 12/07/2022 7:10 EDT [facility] Comment:Unfractionated hepar in therapeutic range = 0.3-0.7 IU/ml - This test is not intended for monitoring direct Xa inhibitors, direct thrombin inhibitors, or fondaparinux.- Exogenous ATIII is NOT supplied in this assay. For unexpected or persistently low levels, consider measuring patient's ATIII level. Results will be overestimated in the presence of direct Xa inhibitors (rivaroxaban, apixaban, edoxaban). Blood VENOUS BLOOD / Unknown Venipuncture / Unknown 12/07/2022 6:41 EDT 12/07/2022 6:45 EDT Elsie Otoole HEMATOLOGY & PF4 ORD ERABLES [facility] [address] [place] [address] * MAGNESIUM (12/07/2022 6:41 EDT) Magnesium 1.9 1.7 - 2.8 mg/dL 12/07/2022 7:24 EDT [facility] Blood VENOUS BLOOD / Unknown Venipuncture / Unknown 12/07/2022 6:41 EDT 12/07/2022 6:55 EDT Vikash Guzman MD CHEMISTRY & BLOOD GA S ORDERABLES Performing Organization Address City/[facility] Co de Phone Number [facility] [address] [place] [address] * (ABNORMAL) BASIC METABOLIC PANEL (BMP) (12/07/2022 6:41 EDT) Sodium 137 136 - 145 mmol/L 12/07/2022 7:24 EDT [facility] Potassium 4.0 3.5 - 5.0 mmol/L 12/07/2022 7:24 [facility] Chloride 109 96 - 110 mmol/L 12/07/2022 7:24 [facility] CO2 Total 20(L) 22 - 32 mmol/L 12/07/2022 7:24 [facility] Anion Gap 8 5 - 14 mmol/L 12/07/2022 7:24 [facility] Glucose 167(H) 70 - 100 mg/dl 12/07/2022 7:24 [facility] Calcium 10.1 8.5 - 10.5 mg/dL 12/07/2022 7:24 [facility] BUN 14 10 - 26 mg/dL 12/07/2022 7:24 [facility] Creatinine 0.94 0.52 - 1.04 mg/dL 12/07/2022 7:24 [facility] eGFR 65 >60 mL/min/1.73 m2 12/07/2022 7:24 [facility] Blood VENOUS BLOOD / Unknown Venipuncture / Unknown 12/07/2022 6:41 EDT 12/07/2022 6:55 EDT Darion Tinajero MD CHEMISTRY & BLOOD GA S ORDERABLES [facility] [address] [place] [address] * (ABNORMAL) COMPLETE BLOOD COUNT (12/07/2022 6:41 EDT) WBC 7.35 4.00 - 12.40 K/cmm 12/07/2022 7:03 EDT [facility] RBC 3.43(L) 3.86 - 5.04 M/cmm 12/07/2022 7:03 [facility] Hemoglobin 9.1(L) 11.6 - 15.2 g/dL 12/07/2022 7:03 [facility] HCT 28.4(L) 34.9 - 44.4 % 12/07/2022 7:03 [facility] MCV 83 81 - 98 fL 12/07/2022 7:03 [facility] MCH 26.5(L) 26.7 - 33.3 pg 12/07/2022 7:03 [facility] MCHC 32.0(L) 32.1 - 35.9 g/dL 12/07/2022 7:03 [facility] RDW-CV 15.1(H) <14.7 % 12/07/2022 7:03 [facility] RDW-SD 44.7 <50.4 fl 12/07/2022 7:03 [facility] PLT 401(H) 141 - 377 K/cmm 12/07/2022 7:03 [facility] MPV 10.0 9.5 - 12.7 fL 12/07/2022 7:03 [facility] Blood VENOUS BLOOD / Unknown Venipuncture / Unknown 12/07/2022 6:41 EDT 12/07/2022 6:54 EDT Darion Tinajero MD HEMATOLOGY & PF4 ORD ERABLES Performing Organization Address City/[facility]/ZIP Co de Phone Number [facility] [address] [place] [address] * (ABNORMAL) POCT GLUCOSE, INTERFACED (12/07/2022 6:09 EDT) Glucose, POC 167(H) 70 - 100 mg/dL 12/07/2022 6:12 EDT [facility] HN LAB POC COMMENT (GLUCOSE) Test Performed by Nursing Services 12/07/2022 6:12 EDT [facility] Blood CAPILLARY BLOOD / Unknown 12/07/2022 6:09 EDT 12/07/2022 6:12 EDT Darion Tinajero MD POINT OF CARE TEST O RDERABLES Performing Organization Address [facility] Co de Phone Number [facility] [address] [place] [address] * (ABNORMAL) POCT GLUCOSE, INTERFACED (12/06/2022 21:14 EDT) Glucose, POC 183(H) 70 - 100 mg/dL 12/06/2022 21:15 EDT [facility] HN LAB POC COMMENT (GLUCOSE) Test Performed by Nursing Services 12/06/2022 21:15 EDT [facility] Blood CAPILLARY BLOOD / Unknown 12/06/2022 21:14 EDT 12/06/2022 21:15 EDT Darion Tinajero MD POINT OF CARE TEST O RDERABLES [facility] [address] [place] [address] * (ABNORMAL) POCT GLUCOSE, INTERFACED (12/06/2022 16:36 EDT) Glucose, POC 172(H) 70 - 100 mg/dL 12/06/2022 16:37 EDT [facility] HN LAB POC COMMENT (GLUCOSE) Test Performed by Nursing Services 12/06/2022 16:37 EDT [facility] Blood CAPILLARY BLOOD / Unknown 12/06/2022 16:36 EDT 12/06/2022 16:37 EDT Darion Tinajero MD POINT OF CARE TEST O RDERABLES Performing Organization Address [facility] Co de Phone Number [facility] [address] [place] [address] * (ABNORMAL) POCT GLUCOSE, INTERFACED (12/06/2022 13:26 EDT) Glucose, POC 163(H) 70 - 100 mg/dL 12/06/2022 13:29 EDT [facility] HN LAB POC COMMENT (GLUCOSE) Test Performed by Nursing Services 12/06/2022 13:29 EDT [facility] Blood CAPILLARY BLOOD / Unknown 12/06/2022 13:26 EDT 12/06/2022 13:29 EDT Randy Sebastian MD POINT OF CARE TEST O RDERABLES Performing Organization Address [facility] Co de Phone Number [facility] [address] [place] [address] * (ABNORMAL) POCT GLUCOSE, INTERFACED (12/06/2022 12:17 EDT) Glucose, POC 160(H) 70 - 100 mg/dL 12/06/2022 12:19 EDT [facility] HN LAB POC COMMENT (GLUCOSE) Test Performed by Nursing Services 12/06/2022 12:19 EDT [facility] Blood CAPILLARY BLOOD / Unknown 12/06/2022 12:17 EDT 12/06/2022 12:18 EDT Darion Tinajero MD POINT OF CARE TEST O RDERABLES Performing Organization Address City/[facility]/ZIP Co de Phone Number [facility] [address] [place] [address] * HEPARIN LEVEL - UNFRACTIONATED HEPARIN (12/06/2022 12:09 EDT) Heparin Level-UFH 0.70 Therapeutic Range: 0.30 - 0.70 IU/mL 12/06/2022 12:37 EDT [facility] Comment:Unfractionated hepar in therapeutic range = 0.3-0.7 IU/ml - This test is not intended for monitoring direct Xa inhibitors, direct thrombin inhibitors, or fondaparinux.- Exogenous ATIII is NOT supplied in this assay. For unexpected or persistently low levels, consider measuring patient's ATIII level. Results will be overestimated in the presence of direct Xa inhibitors (rivaroxaban, apixaban, edoxaban). Blood VENOUS BLOOD / Unknown Venipuncture / Unknown 12/06/2022 12:09 EDT 12/06/2022 12:18 EDT Randolph Hanks MD HEMATOLOGY & PF4 ORD ERABLES Performing Organization Address City/[facility]/ZIP Co de Phone Number [facility] [address] [place] [address] * (ABNORMAL) POCT GLUCOSE, INTERFACED (12/06/2022 9:16 EDT) Glucose, POC 180(H) 70 - 100 mg/dL 12/06/2022 9:17 EDT [facility] HN LAB POC COMMENT (GLUCOSE) Test Performed by Nursing Services 12/06/2022 9:17 EDT [facility] Blood CAPILLARY BLOOD / Unknown 12/06/2022 9:16 EDT 12/06/2022 9:17 EDT Darion Tinajero MD POINT OF CARE TEST O RDERABLES Performing Organization Address City/[facility]/ZIP Co de Phone Number [facility] [address] [place] [address] * (ABNORMAL) POCT GLUCOSE, INTERFACED (12/06/2022 8:12 EDT) [facility] Glucose, POC 179(H) 70 - 100 mg/dL 12/06/2022 8:19 EDT [facility] HN LAB POC COMMENT (GLUCOSE) Test Performed by Nursing Services 12/06/2022 8:19 EDT [facility] Blood CAPILLARY BLOOD / Unknown 12/06/2022 8:12 EDT 12/06/2022 8:19 EDT Darion Tinajero MD POINT OF CARE TEST O RDERABLES Performing Organization Address City/[facility] Co de Phone Number [facility] [address] [place] [address] * MAGNESIUM (12/06/2022 6:28 EDT) Magnesium 2.0 1.7 - 2.8 mg/dL 12/06/2022 7:51 EDT [facility] Blood VENOUS BLOOD / Unknown Venipuncture / Unknown 12/06/2022 6:28 EDT 12/06/2022 7:18 EDT Vikash Guzman MD CHEMISTRY & BLOOD GA S ORDERABLES Performing Organization Address [facility] de Phone Number [facility] [address] [place] [address] * (ABNORMAL) BASIC METABOLIC PANEL (BMP) (12/06/2022 6:28 EDT) Sodium 139 136 - 145 mmol/L 12/06/2022 7:51 EDT [facility] Potassium 3.8 3.5 - 5.0 mmol/L 12/06/2022 7:51 EDT [facility] Chloride 108 96 - 110 mmol/L 12/06/2022 7:51 T [facility] CO2 Total 20(L) 22 - 32 mmol/L 12/06/2022 7:51 T [facility] Anion Gap 11 5 - 14 mmol/L 12/06/2022 7:51 EDT [facility] Glucose 177(H) 70 - 100 mg/dl 12/06/2022 7:51 EDT [facility] Calcium 9.9 8.5 - 10.5 mg/dL 12/06/2022 7:51 T [facility] BUN 15 10 - 26 mg/dL 12/06/2022 7:51 [facility] Creatinine 0.89 0.52 - 1.04 mg/dL 12/06/2022 7:51 [facility] eGFR 70 >60 mL/min/1.73 m2 12/06/2022 7:51 [facility] Blood VENOUS BLOOD / Unknown Venipuncture / Unknown 12/06/2022 6:28 EDT 12/06/2022 7:18 EDT Darion Tinajero MD CHEMISTRY & BLOOD GA S ORDERABLES [facility] [address] [place] [address] * (ABNORMAL) COMPLETE BLOOD COUNT (12/06/2022 6:28 EDT) WBC 7.20 4.00 - 12.40 K/cmm 12/06/2022 7:33 [facility] RBC 3.58(L) 3.86 - 5.04 M/cmm 12/06/2022 7:33 [facility] Hemoglobin 9.4(L) 11.6 - 15.2 g/dL 12/06/2022 7:33 [facility] HCT 29.0(L) 34.9 - 44.4 % 12/06/2022 7:33 [facility] MCV 81 81 - 98 fL 12/06/2022 7:33 [facility] MCH 26.3(L) 26.7 - 33.3 pg 12/06/2022 7:33 [facility] MCHC 32.4 32.1 - 35.9 g/dL 12/06/2022 7:33 [facility] RDW-CV 15.0(H) <14.7 % 12/06/2022 7:33 [facility] RDW-SD 43.2 <50.4 fl 12/06/2022 7:33 EDT [facility] PLT 297 141 - 377 K/cmm 12/06/2022 7:33 EDT [facility] MPV 12.2 9.5 - 12.7 fL 12/06/2022 7:33 EDT [facility] Blood VENOUS BLOOD / Unknown Venipuncture / Unknown 12/06/2022 6:28 EDT 12/06/2022 7:17 EDT Darion Tinajero MD HEMATOLOGY & PF4 ORD ERABLES Performing Organization Address City/[facility]/ZIP Co de Phone Number [facility] [address] [place] [address] * HEPARIN LEVEL - UNFRACTIONATED HEPARIN (12/06/2022 0:07 EDT) Heparin Level-UFH 0.62 Therapeutic Range: 0.30 - 0.70 IU/mL 12/06/2022 0:34 EDT [facility] Comment:Unfractionated hepar in therapeutic range = 0.3-0.7 IU/ml - This test is not intended for monitoring direct Xa inhibitors, direct thrombin inhibitors, or fondaparinux.- Exogenous ATIII is NOT supplied in this assay. For unexpected or persistently low levels, consider measuring patient's ATIII level. Results will be overestimated in the presence of direct Xa inhibitors (rivaroxaban, apixaban, edoxaban). Blood VENOUS BLOOD / Unknown Venipuncture / Unknown 12/06/2022 0:07 EDT 12/06/2022 0:20 EDT Randy Sebastian MD HEMATOLOGY & PF4 ORD ERABLES [facility] [address] [place] [address] * (ABNORMAL) POCT GLUCOSE, INTERFACED (12/05/2022 21:08 EDT) Glucose, POC 288(H) 70 - 100 mg/dL 12/05/2022 21:10 EDT [facility] HN LAB POC COMMENT (GLUCOSE) Test Performed by Nursing Services 12/05/2022 21:10 EDT [facility] Blood CAPILLARY BLOOD / Unknown 12/05/2022 21:08 EDT 12/05/2022 21:10 EDT Darion Tinajero MD POINT OF CARE TEST O SKINNYLASHELL Performing Organization Address [facility] Co de Phone Number [facility] [address] [place] [address] * (ABNORMAL) POCT GLUCOSE, INTERFACED (12/05/2022 16:28 EDT) Glucose, POC 107(H) 70 - 100 mg/dL 12/05/2022 16:29 EDT [facility] HN LAB POC COMMENT (GLUCOSE) Test Performed by Nursing Services 12/05/2022 16:29 EDT [facility] Blood CAPILLARY BLOOD / Unknown 12/05/2022 16:28 EDT 12/05/2022 16:29 EDT Darion Tinajero MD POINT OF CARE TEST O HERNÁN Performing Organization Address [facility] Co de Phone Number [facility] [address] [place] [address] * HEPARIN LEVEL - UNFRACTIONATED HEPARIN (12/05/2022 12:18 EDT) Heparin Level-UFH 0.71 Therapeutic Range: 0.30 - 0.70 IU/mL 12/05/2022 12:41 EDT [facility] Comment:Unfractionated hepar in therapeutic range = 0.3-0.7 IU/ml - This test is not intended for monitoring direct Xa inhibitors, direct thrombin inhibitors, or fondaparinux.- Exogenous ATIII is NOT supplied in this assay. For unexpected or persistently low levels, consider measuring patient's ATIII level. Results will be overestimated in the presence of direct Xa inhibitors (rivaroxaban, apixaban, edoxaban). Blood VENOUS BLOOD / Unknown Venipuncture / Unknown 12/05/2022 12:18 EDT 12/05/2022 12:25 EDT Vikash Guzman MD HEMATOLOGY & PF4 ORD ERABLES Performing Organization Address City/[facility]/ZIP Co de Phone Number [facility] [address] [place] [address] * (ABNORMAL) BASIC METABOLIC PANEL (BMP) (12/05/2022 12:18 EDT) Sodium 140 136 - 145 mmol/L 12/05/2022 13:12 EDT [facility] Potassium 3.9 3.5 - 5.0 mmol/L 12/05/2022 13:12 EDT [facility] Chloride 104 96 - 110 mmol/L 12/05/2022 13:12 T [facility] CO2 Total 25 22 - 32 mmol/L 12/05/2022 13:12 T [facility] Anion Gap 11 5 - 14 mmol/L 12/05/2022 13:12 T [facility] Glucose 173(H) 70 - 100 mg/dl 12/05/2022 13:12 T [facility] Calcium 10.5 8.5 - 10.5 mg/dL 12/05/2022 13:12 T [facility] BUN 15 10 - 26 mg/dL 12/05/2022 13:12 [facility] Creatinine 0.89 0.52 - 1.04 mg/dL 12/05/2022 13:12 T [facility] eGFR 70 >60 mL/min/1.73 m2 12/05/2022 13:12 [facility] Blood VENOUS BLOOD / Unknown Venipuncture / Unknown 12/05/2022 12:18 EDT 12/05/2022 12:25 EDT Darion Tinajero MD CHEMISTRY & BLOOD GA S ORDERABLES Performing Organization Address City/[facility]/ZIP Co de Phone Number [facility] [address] [place] [address] * (ABNORMAL) COMPLETE BLOOD COUNT (12/05/2022 12:18 EDT) WBC 7.00 4.00 - 12.40 K/cmm 12/05/2022 12:32 [facility] RBC 3.82(L) 3.86 - 5.04 M/cmm 12/05/2022 12:32 [facility] Hemoglobin 10.2(L) 11.6 - 15.2 g/dL 12/05/2022 12:32 [facility] HCT 31.9(L) 34.9 - 44.4 % 12/05/2022 12:32 [facility] MCV 84 81 - 98 fL 12/05/2022 12:32 [facility] MCH 26.7 26.7 - 33.3 pg 12/05/2022 12:32 [facility] MCHC 32.0(L) 32.1 - 35.9 g/dL 12/05/2022 12:32 [facility] RDW-CV 14.9(H) <14.7 % 12/05/2022 12:32 [facility] RDW-SD 44.8 <50.4 fl 12/05/2022 12:32 [facility] PLT 467(H) 141 - 377 K/cmm 12/05/2022 12:32 [facility] MPV 10.1 9.5 - 12.7 fL 12/05/2022 12:32 [facility] Blood VENOUS BLOOD / Unknown Venipuncture / Unknown 12/05/2022 12:18 EDT 12/05/2022 12:25 EDT Darion Tinajero MD HEMATOLOGY & PF4 ORD ERABLES [facility] [address] [place] [address] * (ABNORMAL) POCT GLUCOSE, INTERFACED (12/05/2022 11:34 EDT) Glucose, POC 198(H) 70 - 100 mg/dL 12/05/2022 11:35 EDT [facility] HN LAB POC COMMENT (GLUCOSE) Test Performed by Nursing Services 12/05/2022 11:35 EDT [facility] Blood CAPILLARY BLOOD / Unknown 12/05/2022 11:34 EDT 12/05/2022 11:35 EDT Darion Tinajero MD POINT OF CARE TEST O RDERABLES Performing Organization Address [facility] Co de Phone Number [facility] [address] [place] [address] * HEPARIN LEVEL - UNFRACTIONATED HEPARIN (12/05/2022 2:48 EDT) Pathologist [facility] Heparin Level-UFH 0.89 Therapeutic Range: 0.30 - 0.70 IU/mL 12/05/2022 3:05 EDT [facility] Comment:Unfractionated hepar in therapeutic range = 0.3-0.7 IU/ml - This test is not intended for monitoring direct Xa inhibitors, direct thrombin inhibitors, or fondaparinux.- Exogenous ATIII is NOT supplied in this assay. For unexpected or persistently low levels, consider measuring patient's ATIII level. Results will be overestimated in the presence of direct Xa inhibitors (rivaroxaban, apixaban, edoxaban). Blood VENOUS BLOOD / Unknown Venipuncture / Unknown 12/05/2022 2:48 EDT 12/05/2022 2:51 EDT Randolph Hanks MD HEMATOLOGY & PF4 ORD ERABLES Performing Organization Address [facility] Co de Phone Number [facility] [address] [place] [address] * (ABNORMAL) POCT GLUCOSE, INTERFACED (12/05/2022 0:07 EDT) Glucose, POC 187(H) 70 - 100 mg/dL 12/05/2022 0:08 EDT [facility] HN LAB POC COMMENT (GLUCOSE) Test Performed by Nursing Services 12/05/2022 0:08 EDT [facility] Blood CAPILLARY BLOOD / Unknown 12/05/2022 0:07 EDT 12/05/2022 0:08 EDT Randy Sebastian MD POINT OF CARE TEST O RDERABLES Performing Organization Address City/[facility]/ZIP Co de Phone Number [facility] [address] [place] [address] * (ABNORMAL) POCT GLUCOSE, INTERFACED (12/04/2022 20:36 EDT) Glucose, POC 267(H) 70 - 100 mg/dL 12/04/2022 20:37 EDT [facility] HN LAB POC COMMENT (GLUCOSE) Test Performed by Nursing Services 12/04/2022 20:37 EDT [facility] Blood CAPILLARY BLOOD / Unknown 12/04/2022 20:36 EDT 12/04/2022 20:36 EDT Randy Sebastian MD POINT OF CARE TEST O HERNÁN Performing Organization Address [facility]/ZIP Co de Phone Number [facility] [address] [place] [address] * (ABNORMAL) POCT GLUCOSE, INTERFACED (12/04/2022 19:41 EDT) Glucose, POC 190(H) 70 - 100 mg/dL 12/04/2022 19:42 EDT [facility] HN LAB POC COMMENT (GLUCOSE) Test Performed by Nursing Services 12/04/2022 19:42 EDT [facility] Blood CAPILLARY BLOOD / Unknown 12/04/2022 19:41 EDT 12/04/2022 19:42 EDT Darion Tinajero MD POINT OF CARE TEST O RDERABLES [facility] [address] [place] [address] * (ABNORMAL) POCT GLUCOSE, INTERFACED (12/04/2022 18:03 EDT) Glucose, POC 129(H) 70 - 100 mg/dL 12/04/2022 18:04 EDT [facility] HN LAB POC COMMENT (GLUCOSE) Test Performed by Nursing Services 12/04/2022 18:04 EDT [facility] Blood CAPILLARY BLOOD / Unknown 12/04/2022 18:03 EDT 12/04/2022 18:04 EDT Darion Tinajero MD POINT OF CARE TEST O RDERABLES [facility] [address] [place] [address] * MR CARDIAC W WO CONTRAST W VELOCITY MAP (12/04/2022 14:18 EDT) Anatomical Region Laterality Modality Chest Magnetic Resonan ce 12/04/2022 15:1 0 EDT Impressions 12/04/2022 15:10 EDT 1. 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 The distal apex (segment 17) is concentrically involved by delayed enhancement. Left ventricular ejection fraction is 60% and end diastolic wall mass is approximately 175 g. 2. The distal portion of the left ventricle cavity completely obliterates in systole, however there is no evidence of abnormal mitral valve motion or left ventricular outflow tract obstruction. 3. Findings compatible with aortic stenosis, gradient is 14 mmHg. Narrative 12/04/2022 15:10 EDT MR CARDIAC W WO CONTRAST W VELOCITY MAP ??12/04/2022 1:00 PM Clinical History/Comments: Hypertrophic cardiomyopathy assess for flow obstruction; Hypertrophic cardiomyopathy assess for flow obstruction Technique: Multiplanar steady state free precession sequences of the heart were performed. ??Additionally, following IV gadolinium administration, rest perfusion and multi-planar delayed inversion recovery sequences of the heart were performed. Exam description: ??Cardiac MRI for morphology and function with and ??without contrast and further sequences, and with flow/velocity quantification. Comparison: None. FINDINGS: Left ventricle: There is severe, concentric thickening of the left ventricle. Mild global hypokinesis is noted, however the ejection fraction is 60%, within normal range. Extensive patchy mesocardial delayed gadolinium enhancement is present, located in the anterior, lateral, and inferior whitfield from base to apex and concentrically in the distal apex (segment 17). Denser foci of enhancement in the subendocardial region along the inferior wall, for example on image 28 series 1301, probably represent blood pool rather than myocardial enhancement. No flow acceleration is seen in the left ventricular outflow tract. Right ventricle: Right ventricular wall shows slight abnormal thickening. Wall motion is normal. No definite abnormal delayed myocardial enhancement is seen. MEASUREMENTS: CARDIAC MORPHOLOGY: LV basal anteroseptal wall thickness: 18 mm LV basal inferolateral wall thickness: 18 mm LV apical inferoseptal wall: 16 mm LV diastolic dimension (short axis): 52 mm RV diastolic dimension (basal 4 chamber): 38 mm Ascending aorta maximal diameter: 33 mm LEFT VENTRICULAR FUNCTION: LV ejection fraction: 60 % Stroke volume: ?? 85 mL LV end-diastolic volume: 142 mL. LV end-systolic volume: 56 mL. LV end-diastolic wall mass: 175 g AORTIC FLOW: Peak Velocity: 188 cm/sec Gradient: 14 mmHg RIGHT VENTRICULAR FUNCTION: Normal, not quantified. Left atrium: Normal in size. Right atrium: Normal in size. Valves: Mitral valve:Regurgitation, not quantified but probably mild. No abnormal motion of the mitral valve leaflets. Tricuspid valve:No evidence of stenosis or regurgitation. Aortic valve: Trileaflet. Stenotic, as above. Pulmonic valve:No evidence of stenosis or regurgitation. Pericardium: Very small pericardial effusion. Additional findings: Left renal lesions, not characterized but very likely representing simple cysts. Procedure Note Susana Angeles MD - 12/04/2022 MR CARDIAC W WO CONTRAST W VELOCITY MAP 12/04/2022 1:00 PM Clinical History/Comments: Hypertrophic cardiomyopathy assess for flow obstruction; Hypertrophiccardiomyopathy assess for flow obstruction Technique: Multiplanar steady state free precession sequences of the heart wereperformed. Additionally, following IV gadolinium administration, restperfusion and multi- planar delayed inversion recovery sequences of theheart were performed. Exam description: Cardiac MRI for morphology and function with andwithout contrast and further sequences, and with flow/velocityquantification. Comparison: None. FINDINGS: Left ventricle: There is severe, concentric thickening of the leftventricle. Mild global hypokinesis is noted, however the ejection fractionis 60%, within normal range. Extensive patchy mesocardial delayedgadolinium enhancement is present, located in the anterior, lateral, andinferior whitfield from base to apex and concentrically in the distal apex(segment 17). Denser foci of enhancement in the subendocardial regionalong the inferior wall, for example on image 28 series 1301, probablyrepresent blood pool rather than myocardial enhancement. No flowacceleration is seen in the left ventricular outflow tract. Right ventricle: Right ventricular wall shows slight abnormal thickening.Wall motion is normal. No definite abnormal delayed myocardial enhancementis seen. MEASUREMENTS: CARDIAC MORPHOLOGY: LV basal anteroseptal wall thickness: 18 mm LV basal inferolateral wall thickness: 18 mm LV apical inferoseptal wall: 16 mm LV diastolic dimension (short axis): 52 mm RV diastolic dimension (basal 4 chamber): 38 mm Ascending aorta maximal diameter: 33 mm LEFT VENTRICULAR FUNCTION: LV ejection fraction: 60 % Stroke volume: 85 mL LV end-diastolic volume: 142 mL. LV end-systolic volume: 56 mL. LV end-diastolic wall mass: 175 g AORTIC FLOW: Peak Velocity: 188 cm/sec Gradient: 14 mmHg RIGHT VENTRICULAR FUNCTION: Normal, not quantified. Left atrium: Normal in size. Right atrium: Normal in size. Valves: Mitral valve:Regurgitation, not quantified but probably mild. No abnormalmotion of the mitral valve leaflets. Tricuspid valve:No evidence of stenosis or regurgitation. Aortic valve: Trileaflet. Stenotic, as above. Pulmonic valve:No evidence of stenosis or regurgitation. Pericardium: Very small pericardial effusion. Additional findings: Left renal lesions, not characterized but very likelyrepresenting simple cysts. IMPRESSION 1. Severe, concentric/diffuse hypertrophic cardiomyopathy with associatedextensive myocardial fibrosis involving the anterior, lateral, andinferior whitfield from base to apex. The distal apex (segment 17) isconcentrically involved by delayed enhancement. Left ventricular ejectionfraction is 60% and end diastolic wall mass is approximately 175 g. 2. The distal portion of the left ventricle cavity completely obliteratesin systole, however there is no evidence of abnormal mitral valve motionor left ventricular outflow tract obstruction. 3. Findings compatible with aortic stenosis, gradient is 14 mmHg. Darion Tinajero MD [facility] [place] * (ABNORMAL) HEPARIN LEVEL - UNFRACTIONATED HEPARIN (12/04/2022 12:40 EDT) [facility] Heparin Level-UFH 1.84(HH) Therapeutic Range: 0.30 - 0.70 IU/mL 12/04/2022 13:06 EDT [facility] Comment: Recent or concurrent use of oral direct Xa inhibitors (e.g. apixaban or rivaroxaban) will result in an elevated heparin level. Check the following to confirm result accurately reflects the patient's unfractionated heparin level: 1. Blood sample obtained from a non-heparinized line and/or line was properly flushed. 2. Collection site was distal to heparin infusion. 3. Concentration of heparin infusion is correct. 4. Infusion rate of heparin is correct. Blood VENOUS BLOOD / Unknown Venipuncture / Unknown 12/04/2022 12:40 EDT 12/04/2022 12:45 EDT Randy Sebastian MD HEMATOLOGY & PF4 ORD ERABLES Performing Organization Address City/[facility]/ZIP Co de Phone Number [facility] [address] [place] [address] * (ABNORMAL) POCT GLUCOSE, INTERFACED (12/04/2022 12:26 EDT) [facility] Glucose, POC 164(H) 70 - 100 mg/dL 12/04/2022 12:28 EDT [facility] HN LAB POC COMMENT (GLUCOSE) Test Performed by Nursing Services 12/04/2022 12:28 EDT [facility] Blood CAPILLARY BLOOD / Unknown 12/04/2022 12:26 EDT 12/04/2022 12:28 EDT Darion Tinajero MD POINT OF CARE TEST O RDERABLES [facility] [address] [place] [address] * (ABNORMAL) POCT GLUCOSE, INTERFACED (12/04/2022 7:55 EDT) [facility] Glucose, POC 189(H) 70 - 100 mg/dL 12/04/2022 7:57 EDT [facility] HN LAB POC COMMENT (GLUCOSE) Test Performed by Nursing Services 12/04/2022 7:57 [facility] Blood CAPILLARY BLOOD / Unknown 12/04/2022 7:55 EDT 12/04/2022 7:57 EDT Darion Tinajero MD POINT OF CARE TEST O RDERABLES [facility] [address] [place] [address] * (ABNORMAL) BASIC METABOLIC PANEL (BMP) (12/04/2022 7:26 EDT) Sodium 139 136 - 145 mmol/L 12/04/2022 8:31 [facility] Potassium 3.9 3.5 - 5.0 mmol/L 12/04/2022 8:31 [facility] Chloride 104 96 - 110 mmol/L 12/04/2022 8:31 [facility] CO2 Total 21(L) 22 - 32 mmol/L 12/04/2022 8:31 [facility] Anion Gap 14 5 - 14 mmol/L 12/04/2022 8:31 [facility] Glucose 229(H) 70 - 100 mg/dl 12/04/2022 8:31 [facility] Calcium 10.3 8.5 - 10.5 mg/dL 12/04/2022 8:31 [facility] BUN 18 10 - 26 mg/dL 12/04/2022 8:31 [facility] Creatinine 0.90 0.52 - 1.04 mg/dL 12/04/2022 8:31 [facility] eGFR 69 >60 mL/min/1.73 m2 12/04/2022 8:31 [facility] Blood VENOUS BLOOD / Unknown Venipuncture / Unknown 12/04/2022 7:26 EDT 12/04/2022 8:03 EDT Darion Tinajero MD CHEMISTRY & BLOOD GA S ORDERABLES [facility] [address] [place] [address] * (ABNORMAL) COMPLETE BLOOD COUNT (12/04/2022 7:26 EDT) WBC 8.02 4.00 - 12.40 K/cmm 12/04/2022 8:16 EDT [facility] RBC 3.67(L) 3.86 - 5.04 M/cmm 12/04/2022 8:16 EDT [facility] Hemoglobin 9.8(L) 11.6 - 15.2 g/dL 12/04/2022 8:16 T [facility] HCT 30.4(L) 34.9 - 44.4 % 12/04/2022 8:16 [facility] MCV 83 81 - 98 fL 12/04/2022 8:16 EDT [facility] MCH 26.7 26.7 - 33.3 pg 12/04/2022 8:16 [facility] MCHC 32.2 32.1 - 35.9 g/dL 12/04/2022 8:16 [facility] RDW-CV 14.9(H) <14.7 % 12/04/2022 8:16 [facility] RDW-SD 44.5 <50.4 fl 12/04/2022 8:16 T [facility] PLT 455(H) 141 - 377 K/cmm 12/04/2022 8:16 [facility] MPV 10.7 9.5 - 12.7 fL 12/04/2022 8:16 [facility] Blood VENOUS BLOOD / Unknown Venipuncture / Unknown 12/04/2022 7:26 EDT 12/04/2022 8:01 EDT Darion Tinajero MD HEMATOLOGY & PF4 ORD ERABLES [facility] [address] [place] [address] * (ABNORMAL) VITAMIN D (25,OH) (12/04/2022 7:26 EDT) 25OH Vitamin D Tot 21(L) 30 - 100 ng/mL 12/04/2022 12:18 EDT [facility] Comment: Vitamin D 25,OH Interpretive Ranges: Deficiency: ??<10.0 ng/mL Insufficiency: ??10.0 - 30.0 ng/mL Sufficiency: ??30.0 - 100.0 ng/mL Toxicity: ??>100.0 ng/mL Blood VENOUS BLOOD / Unknown Venipuncture / Unknown 12/04/2022 7:26 EDT 12/04/2022 8:03 EDT Darion Tinajero MD CHEMISTRY & BLOOD GA S ORDERABLES Performing Organization Address [facility] de Phone Number [facility] [address] [place] [address] * (ABNORMAL) LIPID PROFILE (INCLUDES CHOLESTEROL, TRIGLYCERIDES, HDL, LDL) (12/03/2022 23:53 EDT) [facility] Cholesterol 107 <200 mg/dL 12/04/2022 0:16 EDT [facility] Comment:Note that therapeuti c goals will differ between patients based on cardiac risk factors and current medical therapy. HDL 40(L) >=50 mg/dL 12/04/2022 0:16 EDT [facility] Comment:Note that therapeuti c goals will differ between patients based on cardiac risk factors and current medical therapy. LDL, Calculated 29 <160 mg/dL 0:16 T [facility] Comment:Note that therapeuti c goals will differ between patients based on cardiac risk factors and current medical therapy. Triglyceride 188(H) <=150 mg/dL 12/04/2022 0:16 EDT [facility] Comment:Note that therapeuti c goals will differ between patients based on cardiac risk factors and current medical therapy. Chol/HDL Ratio 2.7 See Note 12/04/2022 0:16 EDT [facility] Comment:No reference range h as been established for CHOL/HDL ratio. Non HDL Cholesterol 67 <160 mg/dL 12/04/2022 0:16 EDT [facility] Comment:Note that therapeuti c goals will differ between patients based on cardiac risk factors and current medical therapy. Blood VENOUS BLOOD / Unknown Venipuncture / Unknown 12/03/2022 23:53 EDT 12/04/2022 0:00 EDT Darion Tinajero MD CHEMISTRY & BLOOD GA S ORDERABLES Performing Organization Address [facility] Co de Phone Number [facility] [address] [place] [address] * (ABNORMAL) HEPARIN LEVEL - UNFRACTIONATED HEPARIN (12/03/2022 23:53 EDT) [facility] Heparin Level-UFH 1.52() Therapeutic Range: 0.30 - 0.70 IU/mL 12/04/2022 0:24 EDT [facility] Comment: Recent or concurrent use of oral direct Xa inhibitors (e.g. apixaban or rivaroxaban) will result in an elevated heparin level. Check the following to confirm result accurately reflects the patient's unfractionated heparin level: 1. Blood sample obtained from a non-heparinized line and/or line was properly flushed. 2. Collection site was distal to heparin infusion. 3. Concentration of heparin infusion is correct. 4. Infusion rate of heparin is correct. Blood VENOUS BLOOD / Unknown Venipuncture / Unknown 12/03/2022 23:53 EDT 12/04/2022 0:00 EDT Darion Tinajero MD HEMATOLOGY & PF4 ORD ERABLES Performing Organization Address [facility] Co de Phone Number [facility] [address] [place] [address] * (ABNORMAL) TROPONIN I (12/03/2022 23:53 EDT) Troponin I (ng/mL) 0.105(H) <0.034 ng/mL 12/04/2022 0:32 EDT [facility] Blood VENOUS BLOOD / Unknown Venipuncture / Unknown 12/03/2022 23:53 EDT 12/04/2022 0:00 EDT Narrative [facility] - 12/04/2022 0:32 EDT The results of this assay can be falsely lowered due to the consumption of Biotin. Darion Tinajero MD CHEMISTRY & BLOOD GA S ORDERABLES Performing Organization Address [facility] Co de Phone Number [facility] [address] [place] [address] * MAGNESIUM (12/03/2022 23:11 EDT) [facility] Magnesium 1.9 1.7 - 2.8 mg/dL 12/03/2022 23:42 EDT [facility] [facility] Comment:Moderate hemolysis i dentified, interpret with caution as results may be affected due to hemolysis. Blood VENOUS BLOOD / Unknown Venipuncture / Unknown 12/03/2022 23:11 EDT 12/03/2022 23:16 EDT Darion Tinajero MD CHEMISTRY & BLOOD GA S ORDERABLES Performing Organization Address [facility] Co de Phone Number [facility] [address] [place] [address] * EKG 12-LEAD (12/03/2022 22:36 EDT) 12/03/2022 22:3 6 EDT Narrative [facility] EKG - 12/08/2022 12:12 EDT ? [facility] ? Test Date: ?2022-12-03 Pat Name: ? FORTUNATO TANNER ?Department: ?? [place] [facility] ? Room: ? [id number] Gender: ? Female ? Cath Lab Tech: ?? : ?[id number] ? Requested By: MILTON LEYVA Order Number: [id number] ? Reading MD: ?? DENICE LOBEL MD ? Measurements Intervals ?[place] ? Rate: ? 79 ? P: ?51 CT: ? 299 ?QRS: ?-20 QRSD: ? 117 ?T: ?145 QT: ? 435 ? QTc: ?500 ? Interpretive Statements SINUS RHYTHM WITH FIRST DEGREE AV BLOCK WITH OCCASIONAL VENTRICULAR PREMATURE COMPLEXES LEFT VENTRICULAR HYPERTROPHY AND ST-T CHANGE POSSIBLE SEPTAL MYOCARDIAL INFARCTION , OF INDETERMINATE AGE Automated Interpretation. ??Provider Interpretation to follow. Compared to ECG 12/03/2022 07:14:11 No significant change from prior Ekg I reviewed the tracing and have either agreed or edited the findings in this report. Electronically Signed On 12-08-2022 12:12:13 EDT by DENICE NASH MD. Procedure Note Denice Nash MD - 12/08/2022 [facility] Test Date: 2022-12-03 Pat Name: FORTUNATO HART Department: [place] [address] Room: [facility] Gender: Female Cath Lab Tech: : [id number] Requested By: MILTON LEYVA Order Number: [id number] Reading MD: DENICE NASH MD Measurements Intervals [place] Rate: 79 P: 51 CT: 299 QRS: -20 QRSD: 117 T: 145 QT: 435 QTc: 500 Interpretive Statements SINUS RHYTHM WITH FIRST DEGREE AV BLOCK WITH OCCASIONAL VENTRICULARPREMATURE COMPLEXES LEFT VENTRICULAR HYPERTROPHY AND ST-T CHANGE POSSIBLE SEPTAL MYOCARDIAL INFARCTION , OF INDETERMINATE AGE Automated Interpretation. Provider Interpretation to follow. Compared to ECG 12/03/2022 07:14:11 No significant change from prior Ekg I reviewed the tracing and have either agreed or edited the findings inthis report. Electronically Signed On 12-08-2022 12:12:13 EDT by DENICE GONZALEZ. Darion Tinajero MD CARDIAC ECG ORDERABL ES [facility] EKG documented in this encounter Visit Diagnoses Diagnosis ASCVD (arteriosclerotic cardiovascular disease)- Primary Unspecified cardiovascular disease NSTEMI (non-ST elevated myocardial infarction) ([facility]) Acute myocardial infarction, subendocardial infarction, episode of care unspecified Chest pain, unspecified type Hypertrophic cardiomegaly ASCVD (arteriosclerotic cardiovascular disease) Unspecified cardiovascular disease Duodenal erosion Duodenal ulcer, unspecified as acute or chronic, without hemorrhage, perforation, or obstruction Gastrointestinal hemorrhage, unspecified gastrointestinal hemorrhage type NSTEMI (non-ST elevated myocardial infarction) ([facility]) Acute myocardial infarction, subendocardial infarction, episode of care unspecified Hypertrophic cardiomegaly Chest pain Chest pain, unspecified NSTEMI (non-ST elevated myocardial infarction) ([facility]) Acute myocardial infarction, subendocardial infarction, episode of care unspecified documented in this encounter Admitting Diagnoses Diagnosis NSTEMI (non-ST elevated myocardial infarction) ([facility]) Acute myocardial infarction, subendocardial infarction, episode of care unspecified documented in this encounter Administered Medications Inactive Administered Medications - up to 3 most recent administrations Medication Order MAR Action Action Date Dose Rate Site acetaminophen (TYLENOL) tablet 650 mg 650 mg, oral, EVERY 4 HOURS PRN, Starting on Tash 12/03/22 at 2217, Until Wed12/09/22 at 1638, Pain, Routine, Release Given 12/08/2022 23:25 EDT 650 mg Given 12/08/2022 13:36 EDT 650 mg Given 12/07/2022 21:31 EDT 650 mg aspirin chewable tablet 81 mg 81 mg, oral, DAILY, First dose on Wed12/04/22 at 0900, Until Discontinued, Routine Given 12/09/2022 9:25 EDT 81 mg Given 12/08/2022 8:58 EDT 81 mg Given 12/07/2022 8:24 EDT 81 mg clopidogreL (PLAVIX) tablet 75 mg 75 mg, oral, DAILY, First dose on Wed12/09/22 at 0900, Until Discontinued, Routine, Release Given 12/09/2022 9:24 EDT 75 m g diphenhydrAMINE (BENADRYL) injection 50 mg 50 mg, intravenous, Once (Time Specified), 1 dose, On Wed12/08/22 at 1200, Routine Given 12/08/2022 12:37 EDT 50 mg empagliflozin (JARDIANCE) tablet 10 mg 10 mg, oral, DAILY, First dose on Wed12/05/22 at 0900, Until Discontinued, Indications: chronic heart failure, Routine Given 12/09/2022 9:24 EDT 10 mg Given 12/08/2022 8:58 EDT 10 mg Given 12/07/2022 8:25 EDT 10 mg gabapentin (NEURONTIN) capsule 600 mg 600 mg, oral, 2 TIMES DAILY, First dose on Wed12/04/22 at 0030, Until Discontinued, Routine Given 12/09/2022 9:25 EDT 60 0 mg Given 12/08/2022 20:33 EDT 600 mg Given 12/08/2022 8:58 EDT 600 mg gadoterate meglumine solution 1-60 mL 1-60 mL, intravenous, Once in imaging, 1 dose, Starting on Wed12/04/22 at 1320, Until Wed12/04/22 at 1418, Routine, Imaging Protocol Orders Given 12/04/2022 14:18 EDT 36 mL heparin in 1/2 NS 25,000 unit/250 mL infusion 15 Units/kg/hr ? 60.1 kg Adjusted weight (9.015 mL/hr, rounded to 9 mL/hr), intravenous, CONTINUOUS, Starting on Wed12/04/22 at 0000, Until Wed12/06/22 at 1527, Routine New Bag 12/06/2022 5:01 EDT 15 Units/kg/hr 9 mL/hr Rate Documented 12/05/2022 20:10 EDT 15 Units/kg/hr 9 mL/h r Rate Documented 12/05/2022 4:00 EDT 15 Units/kg/hr 9 mL/hr heparin in 1/2 NS 25,000 unit/250 mL infusion 15 Units/kg/hr ? 60.5 kg Adjusted weight (9.075 mL/hr, rounded to 9 mL/hr), intravenous, CONTINUOUS, Starting on Wed12/06/22 at 1545, Until Wed12/08/22 at 1548, STAT Rate Documented 12/08/2022 7:20 EDT 15 Units/kg/hr 9 mL/hr Rate Documented 12/07/2022 20:51 EDT 15 Units/kg/hr 9 mL/h r New Bag 12/07/2022 12:14 EDT 15 Units/kg/hr 9 mL/hr insulin aspart U-100 (NOVOLOG FLEXPEN) injection 6 Units 6 Units, subcutaneous, NOW X1, 1 dose, On Wed12/09/22 at 0100, Routine Given 12/09/2022 1:17 EDT 6 Units insulin aspart U-100 (NOVOLOG FLEXPEN) injection 7 Units 7 Units (rounded from 6.81 Units = 0.1 Units/kg ? 68.1 kg), subcutaneous, 3 TIMES DAILY WITH MEALS, First dose on Wed12/04/22 at 0800, Until Discontinued, Routine Given 12/06/2022 16:38 EDT 7 Units Given 12/06/2022 13:40 EDT 7 Units Given 12/06/2022 9:22 EDT 7 Units insulin aspart U-100 (NOVOLOG FLEXPEN) injection 8 Units 8 Units, subcutaneous, NOW X1, 1 dose, On Wed12/08/22 at 2230, Routine Given 12/08/2022 22:08 EDT 8 Units insulin aspart U-100 (NOVOLOG FLEXPEN) injection subcutaneous, 3 TIMES DAILY WITH MEALS, First dose on Wed12/04/22 at 0800, Until Discontinued, Routine Given 12/06/2022 16:37 EDT 1 Units Given 12/06/2022 13:41 EDT 1 Units Given 12/06/2022 9:20 EDT 1 Units insulin aspart U-100 (NOVOLOG FLEXPEN) injection subcutaneous, EVERY 6 HOURS, First dose on Wed12/07/22 at 0630, Until Discontinued, Routine, Indications: SUPPLEMENTAL INSULIN Given 12/08/2022 6:31 EDT 2 Units Given 12/08/2022 0:46 EDT 1 Units Given 12/07/2022 6:46 EDT 1 Units insulin aspart U-100 (NOVOLOG FLEXPEN) injection subcutaneous, 3 TIMES DAILY WITH MEALS, First dose (after last modification) on Wed12/08/22 at 2015, Until Discontinued, Routine, Indications: SUPPLEMENTAL INSULIN Given 12/09/2022 12:10 EDT 2 Units Given 12/09/2022 7:28 EDT 4 Units insulin glargine (LANTUS SOLOSTAR/SEMGLEE) injection pen 20 Units 20 Units, subcutaneous, DAILY, First dose on Wed12/04/22 at 0900, Until Discontinued, Routine Given 12/09/2022 9:29 EDT 20 Units Given 12/08/2022 9:00 EDT 20 Units Given 12/07/2022 8:26 EDT 20 Units lidocaine (PF) 20 mg/mL (2 %) injection 1 dose, Starting on Wed12/08/22 at 1400, Until Wed12/09/22 at 1638 losartan (COZAAR) tablet 25 mg 25 mg, oral, AT BEDTIME, First dose on Wed12/07/22 at 2100, Until Discontinued, Routine Given 12/08/2022 20:33 EDT 2 5 mg Given 12/07/2022 20:48 EDT 25 mg magnesium sulfate 2 g in water 50 mL 2 g, intravenous, Administer over 60 Minutes, NOW X1, 1 dose, On Wed12/04/22 at 0015, Routine New Bag 12/04/2022 0:34 EDT 2 g methylPREDNISolone sod suc(PF) (SOLU-MEDROL) injection 125 mg 125 mg, intravenous, NOW X1, 1 dose, On Wed12/08/22 at 1045, Routine Given 12/08/2022 12:32 EDT 125 mg metoprolol TARtrate (LOPRESSOR) tablet 12.5 mg 12.5 mg, oral, 2 TIMES DAILY, First dose on Wed12/04/22 at 1145, Until Discontinued, Routine Given 12/08/2022 8:58 EDT 12.5 mg Given 12/07/2022 20:49 EDT 12.5 mg Given 12/07/2022 8:24 EDT 12.5 mg metoprolol TARtrate (LOPRESSOR) tablet 12.5 mg 12.5 mg, oral, 2 TIMES DAILY, First dose on Wed12/09/22 at 1000, Until Discontinued, Routine Given 12/09/2022 10:52 EDT 12.5 mg nitroglycerin (NITROSTAT) SL tablet 0.4 mg 0.4 mg, sublingual, EVERY 5 MIN PRN, Starting on Wed12/04/22 at 0920, Until Wed12/09/22 at 1638, Chest Pain, Routine Given 12/04/2022 9:48 EDT 0.4 mg pantoprazole (PROTONIX) tablet 40 mg 40 mg, oral, 2 TIMES DAILY, First dose on Wed12/04/22 at 0900, Until Discontinued, Routine Given 12/09/2022 9:24 EDT 40 mg Given 12/08/2022 20:33 EDT 40 mg Given 12/08/2022 8:58 EDT 40 mg polyethylene glycol 3350 (MIRALAX) packet 17 g 17 g, oral, DAILY, First dose on Wed12/04/22 at 0900, Until Discontinued, Routine potassium chloride (KLOR-CON) packet 20 mEq 20 mEq, oral, NOW X1, 1 dose, On Wed12/06/22 at 1330, Routine Given 12/06/2022 13:39 EDT 20 mEq predniSONE (DELTASONE) tablet 40 mg 40 mg, oral, Once (Time Specified), 1 dose, On Wed12/08/22 at 1400, Routine Given 12/08/2022 13:39 EDT 40 mg regadenoson (LEXISCAN) 0.4 mg/5 mL injection syringe 1 dose, Starting on Wed12/07/22 at 1129, Until Wed12/09/22 at 1638 rubidium RB 82 injection 16 millicurie 16 millicurie, radiopharm IV, NOW X1, 1 dose, On Wed12/07/22 at 1245, Routine Given 12/07/2022 12:30 EDT 16.03 millicuries rubidium RB 82 injection 16 millicurie 16 millicurie, radiopharm IV, NOW X1, 1 dose, On Wed12/07/22 at 1300, Routine Given 12/07/2022 12:15 EDT 16.04 millicuries sacubitril-valsartan (ENTRESTO) tablet 24-26 mg 1 Tablet, oral, 2 TIMES DAILY, First dose on Wed12/04/22 at 2100, Until Discontinued, Routine Given 12/07/2022 8:25 EDT 1 Tablet Given 12/06/2022 20:48 EDT 1 Tablet Given 12/06/2022 9:20 EDT 1 Tablet senna (SENOKOT) tablet 2 Tablet 2 Tablet, oral, AT BEDTIME, First dose on Wed12/04/22 at 0000, Until Discontinued, Routine Given 12/06/2022 20:48 EDT 2 Tablets Given 12/05/2022 21:41 EDT 2 Tablets Given 12/04/2022 20:44 EDT 2 Tablets sodium chloride 0.9 % (flush) flush 5 mL 5 mL, intravenous, EVERY 8 HOURS, First dose on Wed12/04/22 at 0000, Until Discontinued, Routine, Release Given 12/09/2022 9:49 EDT 5 mL Given 12/08/2022 17:00 EDT 5 mL Given 12/07/2022 8:25 EDT 5 mL spironolactone (ALDACTONE) tablet 12.5 mg 12.5 mg, oral, DAILY, First dose on Wed12/09/22 at 0900, Until Discontinued, Routine Given 12/09/2022 9:24 EDT 12.5 mg documented in this encounter Discontinued Medications Medication Sig Discontinue Reason Start Date End Da te sacubitriL-valsartan (ENTRESTO) 24-26 mg tablet Take 1 Tablet by mouth 2 times daily. 12/04/2022 12/08/2022 empagliflozin (JARDIANCE) 10 mg tablet Take 1 Tablet by mouth daily. Reorder 12/04/2022 12/08/2022 aspirin 81 mg EC tablet Take 81 mg by mouth daily. Reorder 12/09/2022 metoprolol TARtrate (LOPRESSOR) 25 mg tablet Take 0.5 Tablets by mouth 2 times daily. Reorder 11/14/2022 12/09/2022 apixaban (ELIQUIS) 5 mg tablet Take 1 Tablet by mouth 2 times daily. Reorder 12/09/2022 documented as of this encounter Active and Recently Administered Medications Times are shown in EDT. Scheduled Medication Order 12/07/2022 12/08/2022 12/09/2022 aspirin chewable tablet 81 mg 81 mg, oral, DAILY, First dose on Wed12/04/22 at 0900, Until Discontinued, Routine 0824 (Given - Provider: Makayla Farfan RN) 0858 (Given - Provider: Loren Maier RN)1351 (AUG Hold - Provider: Automatic Transfer Provider Hn - Reason: Patient off unit)1620 (AUG Unhold - Provider: Automatic Transfer Provider Hn) 0925 (Given - Provider: Tiffanie Fernandez RN) clopidogreL (PLAVIX) tablet 75 mg 75 mg, oral, DAILY, First dose on Wed12/09/22 at 0900, Until Discontinued, Routine, Release 0924 (Given - Provid er: Tiffanie Fernandez RN) diphenhydrAMINE (BENADRYL) injection 50 mg (COMPLETED) 50 mg, intravenous, Once (Time Specified), 1 dose, On Wed12/08/22 at 1200, Routine 1237 (Given - Provider: Loren Maier RN) empagliflozin (JARDIANCE) tablet 10 mg 10 mg, oral, DAILY, First dose on Wed12/05/22 at 0900, Until Discontinued, Indications: chronic heart failure, Routine 0825 (Given - Provider: Makayla Farfan RN) 0858 (Given - Provider: Loren Maier, JALEN)1351 (AUG Hold - Provider: Automatic Transfer Provider Hn - Reason: Patient off unit)1620 (AUG Unhold - Provider: Automatic Transfer Provider Hn) 0924 (Given - Provider: Tiffanie Fernandez RN) gabapentin (NEURONTIN) capsule 600 mg 600 mg, oral, 2 TIMES DAILY, First dose on Wed12/04/22 at 0030, Until Discontinued, Routine 0824 (Given - Provider: Makayla Farfan RN)204 (Given - Provider: Mikal Murphy RN) 0858 (Given - Provider: Loren Maier RN)1351 (AUG Hold - Provider: Automatic Transfer Provider Hn - Reason: Patient off unit)162 (AUG Unhold - Provider: Automatic Transfer Provider Hn)2032 (Given - Provider: Mikal Murphy RN) 0925 (Given - Provider: Tiffanie Fernandez RN) insulin aspart U-100 (NOVOLOG FLEXPEN) injection 6 Units (COMPLETED) 6 Units, subcutaneous, NOW X1, 1 dose, On Wed12/09/22 at 0100, Routine 0117 (Given - Provid er: Mikal Murphy RN) insulin aspart U-100 (NOVOLOG FLEXPEN) injection 8 Units (COMPLETED) 8 Units, subcutaneous, NOW X1, 1 dose, On Wed12/08/22 at 2230, Routine 2208 (Given - Provider: Mikal Murphy RN) insulin aspart U-100 (NOVOLOG FLEXPEN) injection (CANCELED) subcutaneous, EVERY 6 HOURS, First dose on Wed12/07/22 at 0630, Until Discontinued, Routine, Indications: SUPPLEMENTAL INSULIN 0646 (Given - Provider: Mikal Murphy RN)1321 (Not Given - Provider: Makayla Farfan RN - Reason: Order parameters not met - Comment: FS 140)1800 (Not Given - Provider: Makayla Farfan RN - Reason: Order parameters not met) 0046 (Given - Provider: Mikal Murphy RN)0631 (Given - Provider: Mikal Murphy RN)1223 (Not Given - Provider: Loren Maier, JALEN - Reason: Order parameters not met)1351 (AUG Hold - Provider: Automatic Transfer Provider Hn - Reason: Patient off unit)1620 (AUG Unhold - Provider: Automatic Transfer Provider Hn)1700 (Not Given - Provider: Loren Maier RN - Reason: Order parameters not met - Comment: FS 139) insulin aspart U-100 (NOVOLOG FLEXPEN) injection subcutaneous, 3 TIMES DAILY WITH MEALS, First dose (after last modification) on Wed12/08/22 at 2015, Until Discontinued, Routine, Indications: SUPPLEMENTAL INSULIN 2036 (Not Given - Provider: Mikal Murphy RN - Reason: Order parameters not met) 0728 (Given - Provider: Tiffanie Fernandez, JALEN)1210 (Given - Provider: Tiffanie Fernandez, JALEN) insulin glargine (LANTUS SOLOSTAR/SEMGLEE) injection pen 20 Units 20 Units, subcutaneous, DAILY, First dose on Wed12/04/22 at 0900, Until Discontinued, Routine 0826 (Given - Provider: Makayla Farfan, JALEN) 0900 (Given - Provider: Loren Maier, JALEN)1351 (AUG Hold - Provider: Automatic Transfer Provider Hn - Reason: Patient off unit)1620 (AUG Unhold - Provider: Automatic Transfer Provider Hn) 0929 (Given - Provider: Tiffanie Fernandez, JALEN) losartan (COZAAR) tablet 25 mg 25 mg, oral, AT BEDTIME, First dose on Wed12/07/22 at 2100, Until Discontinued, Routine 204 (Given - Provider: Mikal Murphy RN) 1351 (AUG Hold - Provider: Automatic Transfer Provider Hn - Reason: Patient off unit)1620 (AUG Unhold - Provider: Automatic Transfer Provider Hn)203 (Given - Provider: Mikal Murphy RN) methylPREDNISolone sod suc(PF) (SOLU-MEDROL) injection 125 mg (COMPLETED) 125 mg, intravenous, NOW X1, 1 dose, On Wed12/08/22 at 1045, Routine 1232 (Given - Provider: Loren Maier, JALEN) metoprolol TARtrate (LOPRESSOR) tablet 12.5 mg (CANCELED) 12.5 mg, oral, 2 TIMES DAILY, First dose on Wed12/04/22 at 1145, Until Discontinued, Routine 0824 (Given - Provider: Makayla Farfan RN)204 (Given - Provider: Mikal Murphy RN) 0858 (Given - Provider: Loren Maier, JALEN) metoprolol TARtrate (LOPRESSOR) tablet 12.5 mg 12.5 mg, oral, 2 TIMES DAILY, First dose on Wed12/09/22 at 1000, Until Discontinued, Routine 1052 (Given - Provid er: Tiffanie Fernandez RN) pantoprazole (PROTONIX) tablet 40 mg 40 mg, oral, 2 TIMES DAILY, First dose on Wed12/04/22 at 0900, Until Discontinued, Routine 0824 (Given - Provider: Makayla Farfan RN)204 (Given - Provider: Mikal Murphy RN) 0858 (Given - Provider: Loren Maier, JALEN)1351 (AUG Hold - Provider: Automatic Transfer Provider Hn - Reason: Patient off unit)1620 (AUG Unhold - Provider: Automatic Transfer Provider Hn)2033 (Given - Provider: Mikal Murphy RN) 0924 (Given - Provider: Tiffanie Fernandez RN) polyethylene glycol 3350 (MIRALAX) packet 17 g 17 g, oral, DAILY, First dose on Wed12/04/22 at 0900, Until Discontinued, Routine 0829 (Not Given - Provider: Makayla Farfan RN - Reason: Patient/family refused) 0900 (Not Given - Provider: Loren Maier RN - Reason: Patient/family refused)1351 (AUG Hold - Provider: Automatic Transfer Provider Hn - Reason: Patient off unit)1620 (AUG Unhold - Provider: Automatic Transfer Provider Hn) 0931 (Not Given - Provider: Tiffanie Fernandez RN - Reason: Patient/family refused) predniSONE (DELTASONE) tablet 40 mg (COMPLETED) 40 mg, oral, Once (Time Specified), 1 dose, On Wed12/08/22 at 1400, Routine 1339 (Given - Provider: Loren Maier, JALEN) rubidium RB 82 injection 16 millicurie (COMPLETED) 16 millicurie, radiopharm IV, NOW X1, 1 dose, On Wed12/07/22 at 1245, Routine 1230 (Given - Provider: Greg Nelson - Comment: stress) rubidium RB 82 injection 16 millicurie (COMPLETED) 16 millicurie, radiopharm IV, NOW X1, 1 dose, On Wed12/07/22 at 1300, Routine 1215 (Given - Provider: Greg Nelson - Comment: rest) sacubitril-valsartan (ENTRESTO) tablet 24-26 mg (CANCELED) 1 Tablet, oral, 2 TIMES DAILY, First dose on Wed12/04/22 at 2100, Until Discontinued, Routine 0825 (Given - Provider: Makayla Farfan RN) senna (SENOKOT) tablet 2 Tablet 2 Tablet, oral, AT BEDTIME, First dose on Wed12/04/22 at 0000, Until Discontinued, Routine 2048 (Not Given - Provider: Mikal Murphy RN - Reason: Patient/family refused) 1351 (AUG Hold - Provider: Automatic Transfer Provider Hn - Reason: Patient off unit)1620 (AUG Unhold - Provider: Automatic Transfer Provider Hn)2100 (Not Given - Provider: Mikal Murphy RN - Reason: Patient/family refused) sodium chloride 0.9 % (flush) flush 5 mL 5 mL, intravenous, EVERY 8 HOURS, First dose on Wed12/04/22 at 0000, Until Discontinued, Routine, Release 0825 (Given - Provider: Makayla Farfan RN)2049 (Not Given - Provider: Mikal Murphy RN - Reason: Other) 0121 (Not Given - Provider: Mikal Murphy RN - Reason: Other - Comment: heparin gtt)0900 (Not Given - Provider: Loren Maier RN - Reason: Order parameters not met)1351 (AUG Hold - Provider: Automatic Transfer Provider Hn - Reason: Patient off unit)1620 (AUG Unhold - Provider: Automatic Transfer Provider Hn)1700 (Given - Provider: Loren Maier, RN) 0033 (Not Given - Provider: Mikal Murphy RN - Reason: Patient/family refused)0949 (Given - Provider: Tiffanie Fernandez RN)1600 (Canceled Entry - Provider: Batch Job User Admin - Comment: Automatically canceled at discontinue of medication order) spironolactone (ALDACTONE) tablet 12.5 mg 12.5 mg, oral, DAILY, First dose on Wed12/09/22 at 0900, Until Discontinued, Routine 1351 (AUG Hold - Provider: Automatic Transfer Provider Hn - Reason: Patient off unit)1620 (AUG Unhold - Provider: Automatic Transfer Provider Hn) 0924 (Given - Provider: Tiffanie Fernandez RN) Continuous Medication Order 12/07/2022 12/08/2022 12/09/2022 heparin in 1/2 NS 25,000 unit/250 mL infusion (CANCELED) 15 Units/kg/hr ? 60.5 kg Adjusted weight (9.075 mL/hr, rounded to 9 mL/hr), intravenous, CONTINUOUS, Starting on Wed12/06/22 at 1545, Until Wed12/08/22 at 1548, STAT 0816 (Rate Documented - Provider: Makayla Farfan RN - Comment: UFH 0.65)1214 (New Bag - Provider: Makayla Farfan RN)2051 (Rate Documented - Provider: Mikal Murphy RN) 0720 (Rate Documented - Provider: Loren Maier, RN)1407 (IV Pause - Provider: Meseret Geller RN) PRN Medication Order 12/07/2022 12/08/2022 12/09/2022 acetaminophen (TYLENOL) tablet 650 mg 650 mg, oral, EVERY 4 HOURS PRN, Starting on Tash 12/03/22 at 2217, Until Wed12/09/22 at 1638, Pain, Routine, Release 0109 (Given - Provider: Mikal Murphy, RN)2131 (Given - Provider: Mikal Murphy, RN) 1336 (Given - Provider: Loren Maier, RN)1351 (AUG Hold - Provider: Automatic Transfer Provider Hn - Reason: Patient off unit)1620 (AUG Unhold - Provider: Automatic Transfer Provider Hn)2325 (Given - Provider: Mikal Murphy, JALEN) clopidogreL (PLAVIX) tablet (CANCELED) PRN, Starting on Wed12/08/22 at 1544, Until Wed12/08/22 at 1547, Routine, Intraprocedure 1544 (Given - Provider: Mercedez Woody, JALEN) dextrose 50 % solution 12.5 g 12.5 g (25 mL), intravenous, PRN, Starting on Tash 12/03/22 at 2335, Until Wed12/09/22 at 1638, Low Blood Sugar, Routine 1351 (MAR Hold - Provider: Automatic Transfer Provider Hn - Reason: Patient off unit)1620 (MAR Unhold - Provider: Automatic Transfer Provider Hn) fentaNYL citrate (PF) injection (CANCELED) PRN, Starting on Wed12/08/22 at 1451, Until Wed12/08/22 at 1547, Routine, Intraprocedure 1451 (Given - Provider: Mercedez Woody RN) glucagon injection 1 mg 1 mg, intramuscular, PRN, Starting on Tash 12/03/22 at 2335, Until Wed12/09/22 at 1638, Other, Low blood sugar, Routine 1351 (MAR Hold - Provider: Automatic Transfer Provider Hn - Reason: Patient off unit)1620 (MAR Unhold - Provider: Automatic Transfer Provider Hn) heparin 1,000 unit/mL injection (CANCELED) PRN, Starting on Wed12/08/22 at 1500, Until Wed12/08/22 at 1547, Routine, Intraprocedure 1500 (Given - Provider: Mercedez Woody RN) iopamidoL (ISOVUE-370) injection (CANCELED) PRN, Starting on Wed12/08/22 at 1544, Until Wed12/08/22 at 1547, Routine, Intraprocedure 1544 (Given - Provider: Edgardo Ha MD - Comment: 130 cc used) midazolam (PF) (VERSED) injection (CANCELED) PRN, Starting on Wed12/08/22 at 1452, Until Wed12/08/22 at 1547, Routine, Intraprocedure 1452 (Given - Provider: Mercedez Woody RN) nitroglycerin (NITROSTAT) SL tablet 0.4 mg 0.4 mg, sublingual, EVERY 5 MIN PRN, Starting on Wed12/04/22 at 0920, Until Wed12/09/22 at 1638, Chest Pain, Routine 1351 (MAR Hold - Provider: Automatic Transfer Provider Hn - Reason: Patient off unit)1620 (MAR Unhold - Provider: Automatic Transfer Provider Hn) sodium chloride 0.9 % (NS) infusion (COMPLETED) FA IP EQF CONTINUOUS PRN FOR ONE STEP MEDS, Starting on Wed12/08/22 at 1407, Until Wed12/08/22 at 1547, Routine, Intraprocedure 1407 (New Bag - Provider: Meseret Geller RN) No Frequency Medication Order 12/07/2022 12/08/2022 12/09/2022 lidocaine (PF) 20 mg/mL (2 %) injection 1 dose, Starting on Wed12/08/22 at 1400, Until Wed12/09/22 at 1638 regadenoson (LEXISCAN) 0.4 mg/5 mL injection syringe 1 dose, Starting on Wed12/07/22 at 1129, Until Wed12/09/22 at 1638 documented in this encounter Orders Medications Ordered That Guy ht Not Have Been Administered Count Last Ordered Date First Ordered Date apixaban (ELIQUIS) tablet 5 mg 1 12/08/2022 clopidogreL (PLAVIX) tablet 1 12/08/2022 fentaNYL citrate (PF) 50 mcg/mL injection 1 12/08/2022 fentaNYL citrate (PF) injection 1 3 heparin 1,000 unit/mL injection 2 3 iopamidoL (ISOVUE-370) injection 1 12/09/19 lidocaine (PF) 20 mg/mL (2 %) injection 1 0 12/08/2022 methylPREDNISolone sod suc(P F) (SOLU-MEDROL) injection 40 mg 1 12/08/2022 midazolam (PF) (VERSED) 1 mg/mL injection 1 12/08/2022 midazolam (PF) (VERSED) injection 1 023 nitroglycerin 100 mcg/mL syringe 1 12/09/19 sodium chloride 0.9 % (NS) infusion 1 12/08 verapamil (ISOPTIN) 2.5 mg/mL injection 1 0 12/08/2022 regadenoson (LEXISCAN) 0.4 m g/5 mL injection syringe 1 12/07/2022 heparin 1,000 unit/mL inject ion 2,100 Units 1 12/06/2022 heparin 1,000 unit/mL inject ion 4,200 Units 2 12/06/2022 potassium chloride SA (K-DUR ) tablet 20 mEq 1 12/06/2022 aspirin tablet 325 mg 1 12/03/2022 dextrose 50 % solution 12.5 g 1 12/03/2022 glucagon injection 1 mg 1 12/03/2022 metoprolol TARtrate (LOPRESS OR) tablet 25 mg 1 12/03/2022 polyethylene glycol 3350 (FL RALAX) packet 17 g 1 12/03/2022 Lab Orders Without Results Count Last Ordered D ate First Ordered Date COMPLETE BLOOD COUNT 1 12/09/2022 Diet Count Last Ordered Date First Orde red Date DISCHARGE DIET 3 12/08/2022 Nursing Count Last Ordered Date First Orde red Date ACTIVITY INSTRUCTIONS 3 12/08/2022 BATHING INSTRUCTIONS 3 12/08/2022 PATIENT AT LOW RISK FOR VTE: RISK OF MECHANICAL PROPHYLAXIS OUTWEIGHS 1 12/08/2022 PATIENT AT LOW RISK FOR VTE: RISK OF PHARMACOLOGIC PROPHYLAXIS OUTWEIG 1 12/08/2022 WOUND CARE INSTRUCTIONS 2 12/08/2022 VTE PHARMACOLOGIC PROPHYLAXI S CURRENTLY ORDERED OR ON ALTERNATIVE THER 1 12/03/2022 IV Count Last Ordered Date First Orde red Date IV REQUEST 2 12/04/2022 12/03/2022 Admission Count Last Ordered Date First Orde red Date ADMIT TO INPATIENT 1 12/03/2022 Discharge Count Last Ordered Date First Orde red Date DISCHARGE PATIENT 1 12/09/2022 Legal Count Last Ordered Date First Orde red Date MISCELLANEOUS DISCHARGE INSTRUCTIONS 6 11/20 Case Request Count Last Ordered Date First Orde red Date CASE REQUEST AIRPLANE COVER MAKER 1 12/06/2022 documented in this encounter Care Teams It Network Engineer Relationship Specialty Start Date End Date Bryant Crain MD [address] [place] [address] PCP - General 05/04/15 05/17/23 Carlos Ha NP [address] [place] [address] [phone] Consulting Clinician Cardiovascular Disease 09/14/21 documented as of this encounter
--- OUTSIDE RECORDS SUMMARY | 2024-01-07 11:12 | XMS_ITS | Encounter Summary ---
Author Organization [facility] Address [address] [place] [address] Care Team Providers Care Senior Report Developer Name Role Phone Bryant Crain MD Primary Care Provider [phone] Carlos Ha SLIME PLANT OPERATOR HELPER Unavailable [phone] Reason for Referral * Cardiology (Routine/Next Available) - Authorized Specialty Diagnoses / Procedures [facility] Referred To Contact Diagnoses NSTEMI (non-ST elevated myocardial infarction) (HCC-CMS) Hypertrophic cardiomyopathy (HCC-CMS) NSVT (nonsustained ventricular tachycardia) (HCC-CMS) Procedures CARDIAC EVENT MONITOR WV XTRNL MOBILE CV TELEMETRY W/I&REPORT 30 DAYS WV XTRNL PT ACTIVTD ECG DWNLD W/R&I </30 DAYS Shawna Terry MD MPH [address] [phone] [facility] Referral ID Status Reason Start Date Expiration Date V isits Requested Visits Authorized [id number] Authorized 11/14/2022 1 1 Reason for Visit * Cardiology (Routine/Next Available) - Authorized Specialty Diagnoses / Procedures Referred By Contac t Referred To Contact Diagnoses NSTEMI (non-ST elevated myocardial infarction) (HCC-CMS) Hypertrophic cardiomyopathy (HCC-CMS) NSVT (nonsustained ventricular tachycardia) ([facility]) Procedures CARDIAC EVENT MONITOR WV XTRNL MOBILE CV TELEMETRY W/I&REPORT 30 DAYS WV XTRNL PT ACTIVTD ECG DWNLD W/R&I </30 DAYS Shawna Terry MD MPH [address] [place] [phone] [facility] Referral ID Status Reason Start Date Expiration Date V isits Requested Visits Authorized [id number] Authorized 11/14/2022 1 1 Encounter Details Date Type Department Care Team (Latest Contact Info) Description 12/30/2022 8:57 EDT - 12/30/2022 23:59 EDT Hospital Encounter [facility] Non-Invasive Cardiology - [address] [address] NSTEMI (non-ST elevated myocardial infarction) ([facility]); Hypertrophic cardiomyopathy ([facility]); NSVT (nonsustained ventricular tachycardia) ([facility]) Discharge Disposition: Home or Self Care Social [...] No 12/03/2022 documented as of this encounter Medications at Time of Discharge Medication Sig Dispensed Refills Start Date End Date acetaminophen (TYLENOL) 650 mg CR tablet 2 tab(s) orally twice a day, only as needed BD ULTRA-FINE MICRO PEN NEEDLE 32 gauge x 1/4 needle 06/17/2021 blood glucose meterIndications:Typ e 2 diabetes mellitus with hyperglycemia, with long-term current use of insulin ([facility]) by [facility] (non-drug; combo route) route daily. One touch [...] glucose scanning reader (FREESTYLE VICKY 2 READER) [facility] 1 Device by [facility] (non-drug; combo route) route daily. Dispense one [...] 01/18/2020 lancets/blood glucose strips (ONE TOUCH COMBO MISC) [...] by mouth 2 times daily. 12/16/2022 03/16/2023 clopidogreL (PLAVIX) 75 mg tablet Take 1 Tablet by mouth daily. 90 Tablet 3 12/10/2022 06/03/2023 metoprolol TARtrate (LOPRESSOR) 25 mg tablet Take 0.5 Tablets by mouth daily. 12/09/2022 05/18/2023 documented as of this encounter Discharge Disposition Disposition Code Departure Means Destination Home or Self Care documented in this encounter Plan of Treatment Upcoming Encounters Date Type Department Care Team (Late st Contact Info) Description 03/08/2024 9:30 EDT Ancillary Procedure [facility] [place] [address] 03/08/2024 10:15 EDT Ancillary Procedure [facility] [place] [address] 04/05/2024 10:00 EDT Ancillary Procedure [facility] Clinic [address] [place] [address] 04/05/2024 10:00 EDT Office Visit [facility] [address] [place] [address] Carlos Ha NP [address] [facility] [address] [phone] documented as of this encounter Procedures Procedure Name Priority Date/Time Associated Diagnosis Comments 30 DAY GRINDER SET UP OPERATOR SURFACE Routine 12/30/2022 8:57 EDT NSTEMI (non-ST elevated myocardial infarction) (HCC-CMS) Hypertrophic cardiomyopathy (HCC-CMS) NSVT (nonsustained ventricular tachycardia) (HCC-CMS) documented in this encounter Results * CARDIAC EVENT MONITOR (12/30/2022 8:57 EDT) Anatomical Region Laterality Modality Other Narrative 12/30/2022 13:00 EDT 30 day event monitor for HCM Frequent multiform PVCs and 7 nonsustained VT runs, longest 12 consecutive beats Moderately frequent PACs Pt conducts with AV delay and IVCD Shawna Terry MD MPH CARDIAC SERVICE S ORDERABLES documented in this encounter Visit Diagnoses Diagnosis NSTEMI (non-ST elevated myocardial infarction) (HCC-CMS) Acute myocardial infarction, subendocardial infarction, episode of care unspecified Hypertrophic cardiomyopathy (HCC-CMS) Other hypertrophic cardiomyopathy NSVT (nonsustained ventricular tachycardia) (HCC-CMS) Paroxysmal ventricular tachycardia documented in this encounter Care Teams Senior Report Developer Relationship Specialty Start Date End Date Bryant Crain MD [address] [place] [address] PCP - General 05/04/15 05/17/23 Carlos Ha NP [address] [facility] [address] [place] [address] Consulting Clinician Cardiovascular Disease 09/14/21 documented as of this encounter
--- OUTSIDE RECORDS SUMMARY | 2024-01-07 11:13 | XMS_ITS | Encounter Summary ---
Author Organization [facility] Address [address] [place] [address] Care Team Providers Care Academic Assistant Name Role Phone Bryant Crain MD Primary Care Provider [phone] Carlos Ha FIELD PROJECT MANAGER Unavailable [phone] Elba Jett MD Primary Care Provider [phone] Reason for Visit * Reason Onset Date Comments Appointment Related 11/27/2022 Encounter Details Date Type Department Care Team (Late st Contact Info) Description 11/27/2022 Telephone [facility] Cardiology - [address] [place] [address] Randy Sebastian MD [address] [place] [phone] Appointment Related Social History Tobacco Use Types Packs/Day Years Used Date Smoking Tobacco: Never Smokeless Tobacco: Never Interpersonal Safety Answer Date Record ed Physically [...] was confirmed or suspected to have Coronavirus/COVID-19? Unable to assess 11/11/2022 8:36 EDT documented as of this encounter Functional Status Functional Status Response Date of Assess ment Are you deaf or do you have serious difficulty h earing? No 11/11/2022 Are you blind or do you have serious difficulty seeing, even when wearing glasses? No 11/11/2022 Do you have serious difficul ty walking or climbing stairs? (5 years old or older) No 11/11/2022 Do you have difficulty dress ing or bathing? (5 years old or older) No 11/11/2022 Because of a physical, menta l, or emotional condition, do you have difficulty doing errands alone such as visiting a doctor's office or shopping? (15 years old or older) No 11/11/2022 Cognitive Status Response Date of Assessm ent Because of a physical, menta l, or emotional condition, do you have serious difficulty concentrating, remembering, or making decisions? (5 years old or older) No 11/11/2022 documented as of this encounter Miscellaneous Notes * Telephone Encounter - Deandra Sandhu - 11/27/2022 1512 EDT Left message to schedule an appointment with Dr. Sebastian per in basket message ----- Message ----- From: Randy Sebastian MD Sent: 11/26/2022 ??15:01 EDT To: Donell Johnson RN Ok to double book whenever works for her. Ideally no later than 4-6 weeks There was an opening on 12/29 at 3:00pm for him documented in this encounter Plan of Treatment Upcoming Encounters Date Type Department Care Team (Late st Contact Info) Description 03/08/2024 9:30 EDT Ancillary Procedure [facility] [place]iology [place] [address] 03/08/2024 10:15 EDT Ancillary Procedure [facility] [place] [address] 04/05/2024 10:[address] [facility] Cardiology Clinic [address] [place] [address] 04/05/2024 10:[address] [facility] Cardiology Clinic [address] [place], [place] [address] Carlos Ha, RAHEEM [address] [phone] documented as of this encounter Visit Diagnoses Not on filedocumented in this encounter Care Teams Academic Assistant Relationship Specialty Start Date End Date Bryant Crain MD [address] [place] [address] PCP - General 05/04/15 05/17/23 Elba Jett MD [address] [place] [phone] PCP - General Family Medicine - Primary Care 05/18/23 Carlos Ha FIELD PROJECT MANAGER [address] [place] [phone] Consulting Clinician Cardiovascular Disease 09/14/21 documented as of this encounter
--- OUTSIDE RECORDS SUMMARY | 2024-01-07 11:13 | XMS_ITS | Encounter Summary ---
Author Organization [facility] Address [address] [place] [address] Care Team Providers Care Systems Design Engineer Name Role Phone Bryant Crain MD Primary Care Provider [phone] Carlos Ha NETWORK ARCHITECT Unavailable [phone] Reason for Visit * Reason Onset Date Comments Results 11/24/2022 Encounter Details Date Type Department Care Team (Late st Contact Info) Description 11/24/2022 Telephone [facility] Cardiology - [address] [place] [address] Nicole Acosta MD Results Social History Tobacco Use Types Packs/Day Years [...] encounter Miscellaneous Notes * Telephone Encounter - Carlos Ha NP - 11/25/20[address] Sebastian. He is going to see the patient in clinic to assist with workup. I did speakwith patient this morning. She is feeling better. Her Eliquis was restarted by PCP on Wednesday. I have asked that she start Metoprolol 12.5 mg once daily. She is scheduled to see me in clinic next week. * Telephone Encounter - Nicole Acosta MD - 11/24/2022 1451 EDT Urgent event monitor notification (Biotel) - 11/24/2022 at 11:36: SR with 10-beat run of NSVT @ 142 bpm. This does appear most consistent with VT (as opposed to abberrant atrial arrhythmia). Auto-triggered, no symptoms reported. No action taken. NICOLE ACOSTA MD 11/24/2022 14:51 College Dean documented in this encounter Plan of Treatment Upcoming Encounters Date Type Department Care Team (Late st Contact Info) Description 03/08/2024 9:30 EDT Ancillary Procedure [facility] Cardiology - [address] [place] [address] 03/08/2024 10:15 EDT Ancillary Procedure [facility] [place] [address] 04/05/2024 10:00 EDT Ancillary Procedure [facility] Cardiology Clinic [address] [place] [phone] 04/05/2024 10:00 EDT Office Visit [facility] Cardiology Clinic [address] [place] [address] Carlos Ha NP [address] [place] [phone] documented as of this encounter Visit Diagnoses Not on filedocumented in this encounter Care Teams Systems Design Engineer Relationship Specialty Start Date End Date Bryant Crain MD [address] [place], [place] [phone] PCP - General 05/04/15 05/17/23 Carlos Ha NP [address] [place] [address] [phone] Consulting Clinician Cardiovascular Disease 09/14/21 documented as of this encounter
--- OUTSIDE RECORDS SUMMARY | 2024-01-07 11:13 | XMS_ITS | Encounter Summary ---
Author Organization [facility] Address [address] [place] [address] Care Team Providers Care Supervisor Building Maintenance Name Role Phone Bryant Crain MD Primary Care Provider [phone] Carlos Ha SPECIALTY TRIMMER Unavailable [phone] Reason for Referral * Consult (48 Hrs (Urgent)) - Closed Specialty Diagnoses / Procedures Referred By Contac t Referred To Contact Cardiology Diagnoses Paroxysmal atrial fibrillation (HCC-CMS) Ventricular tachycardia (HCC-CMS) Hypertrophic cardiomyopathy (HCC-CMS) AVB (atrioventricular block) Elevated troponin Carlos Ha NP [address] [facility] [address] [place] [address] Randy Sebastian MD [address] [place] [address] Referral ID Status Reason Start Date Expiration Date V isits Requested Visits Authorized [id number] Closed Specialty Services Required 11/24/2022 1 1 Question Answer Reason for Request: consulted during recent admission for HCM. MCOT with episodes of NSVT. ?need for ischemic workup in 72 yo female with dm, htn, hld and elevated troponins on admission. Reason for Visit * Reason Comments Atrial Fibrillation Hypertension Cardiomyopathy * Consult (Urgent) - Authorization Not Required Specialty Diagnoses / Procedures Referred By Contac t Referred To Contact Cardiology Diagnoses NSTEMI (non-ST elevated myocardial infarction) (HCC-CMS) Hypertrophic cardiomyopathy (HCC-CMS) NSVT (nonsustained ventricular tachycardia) (HCC-CMS) Shawna Terry MD MPH [address] [place] [phone] [facility] [address] [place] [address] Referral ID Status Reason Start Date Expiration Date Visits Requested Visits Authorized [id number] Authorization Not Required Specialty Services Required 3 1 1 Encounter Details Date Type Department Care Team (Latest Contact Info) Description 11/20/2022 8:30 EDT Office Visit [facility] [address] [place] [address] Carlos Ha NP [address] [place] [address] [address] [place] [address] Ventricular tachycardia (HCC-CMS) (Primary Dx); Hypertrophic cardiomyopathy (HCC-CMS); Paroxysmal atrial fibrillation (HCC-CMS); AVB (atrioventricular block); Elevated troponin; Essential hypertension; Gastrointestinal hemorrhage, unspecified gastrointestinal hemorrhage type; Duodenal erosion; Esophagitis Social History Tobacco Use Types Packs/Day Years [...] Sign Reading Time Taken Comments Blood Pressure 114/60 11/20/2022 0827 EDT Pulse 67 11/20/2022 0827 EDT Temperature - - Respiratory Rate - - Oxygen Saturation 97% 11/20/2022826 EDT Inhaled Oxygen Concentration - - Weight 71.7 kg (158 lb) 11/20/2022 08 EDT Height 162.6 cm (5' 4) 11/20/2022826 EDT Body Mass Index 27.12 11/20/2022826 EDT documented in this encounter Functional Status [...] No 11/11/2022 documented as of this encounter Progress Notes * Carlos Ha NP - 11/20/2022 0830 EDT CC: Atrial Fibrillation , Hypertension, and Cardiomyopathy HPI: This is a pleasant 72-year-old female who is here for an inpatient follow-up visit. She presented to [facility] on 11/10 with complaints of fatigue, chest tightness, and two syncopal episodes. She was noted to have a significant drop in her hemoglobin 14.1>9.9>7.1 with complaints of dark stool. She received 2 U RBC's and underwent EDG showing esophagitis and blood clots in stomach.The next morning she had hematemesis. She received another 2 U RBC's, was given Kcentra, and started on Protonix and octreotide. She was then transferred to [facility]. Repeat EDG showed esophagitis, scattered petechia in the body of stomach thought to be source of bleeding, and duodenal ulcer. She was started on BID PPI x8 weeks then daily indefinitely. She was discharged off aspirin and eliquis. She she was evaluated by Neurology in [...] but was cancelled as she presented to [facility] ED on the day it was scheduled. Cardiology consult by Dr. Sebastian while she was hospitalized given her multiple acute cardiac issues. Echo with findings consistent with HCM. Ischemic work up could not be pursued given her anemia with acute GIB. [facility] recommended to be considered given her chest pain, elevated trop (peak 32), NSVT, and cardiac risk factors (DM, HTN, HLD). She was discharged with repeat MCOT which they have with them today and I recommended that they apply so her heart rate and rhythm can be monitored for potential conduction disease and need for device therapy. She has not had further chest pain since discharge. She can feel episodic heart fluttering. She still feels weak but notes some improvement. She tires easily. She is short of breath with minimal exertion. She has noted no further bleeding issues. She is doing her ADL's but not much more activity due to fatigue [facility] Cryptogenic stroke (left MCA) 2017 with Medtronic loop 2017. ASA recently started during admission at [facility] 08/2022 Paroxysmal atrial fibrillation (2 [...] and esophagitis with acute GIB admit to [facility] 11/11-11/14. D/C on Protonix. ?Parkinson's Disease Lives in [place] with spouse Has three grown children She does not smoke or consume alcohol Usually swims 3x weekly when she is feeling well. FH: Denies early family history of CAD or SCD MEDICATIONS: Medications Prior to Today's Visit Medication Sig ??? acetaminophen (TYLENOL) 650 mg CR tablet 2 tab(s) orally twice a day, only as needed ??? aspirin 81 mg EC tablet Take 81 mg by mouth daily. (Patient not taking: Reported on 11/20/2022) ??? BD ULTRA-FINE MICRO PEN NEEDLE 32 gauge x 06/24 needle ??? blood glucose meter by [facility] (non-drug; combo route) route daily. One touch verio meter or best covered by insurance. ??? cetirizine (ZYRTEC) 10 mg tablet Take 10 mg by mouth daily. ??? Cholecalciferol, Vitamin D3, 10 mcg (400 unit) tablet Take 400 Units by mouth daily. ??? cyanocobalamin (VITAMIN B-12) 500 mcg tablet Take 500 mcg by mouth daily. ??? flash glucose scanning reader (FREESTYLE VICKY 2 READER) [facility] 1 Device by [facility] (non-drug; comboroute) route daily. Dispense one reader ??? FREESTYLE VICKY 2 SENSOR kit USE 1 SENSOR EVERY 14 DAYS ??? gabapentin (NEURONTIN) 300 mg capsule Take 600 mg by mouth 2 times daily. ??? HUMALOG KWIKPEN INSULIN 100 unit/mL injectable pen 100-150 1 unit, 150-200 2 units, 200-250 3 units, 250-300 4 units ??? insulin glargine (LANTUS SOLOSTAR U-100 INSULIN) 100 unit/mL (3 mL) injection pen Inject 31 Units into the skin daily. ??? lactobacillus combination no.8 3 billion cell capsule Take by mouth. ??? lancets/blood glucose strips (ONE TOUCH COMBO [facility]) -to test blood sugar - twice daily ??? magnesium oxide (MAG-OX) 400 mg (241.3 mg magnesium) tablet Take 400 mg by mouth daily. ??? metFORMIN (GLUCOPHAGE-XR) 750 mg ER tablet Take 750 mg by mouth 2 times daily. ??? metoprolol TARtrate (LOPRESSOR) 25 mg tablet Take 0.5 Tablets by mouth 2 times daily. ??? ONETOUCH ULTRA BLUE TEST STRIP test strips TEST BLOOD GLUCOSE THREE TIMES DAILY ??? OZEMPIC 1 mg/dose (4 mg/3 mL) pen injector 1 mg once a week. ??? pantoprazole (PROTONIX) 40 mg tablet Take 1 Tablet by mouth 2 times daily. ??? REPATHA SYRINGE 140 mg/mL syringe INJECT 1 SYRINGE SUBCUTANEOUSLY EVERY 2 WEEKS ??? UNIFINE PENTIPS No facility-administered medications prior to visit. ALLERGIES: Allergies Allergen Reactions ??? Iodinated Contrast Media Other reaction(s): Anaphylaxsis ( TOLERATED WITH PREMEDS 05/05/17) ??? Atenolol Other (See Comments) ??? Cephalexin Other reaction(s): Rash ??? Ciprofloxacin ??? Farxiga [Dapagliflozin] Gi side effects ??? Hydroxychloroquine Other reaction(s): Unknown ??? Iodine And Iodide Containing Products Hives ??? Lisinopril Other reaction(s): Unknown ??? Losartan Other reaction(s): Unknown ??? Oxycodone-Acetaminophen Other reaction(s): Hallucinations ??? Propoxyphene N-Acetaminophen Other reaction(s): Hallucinations ??? Mcvamib-Qgx-Lsw Reductase Inhibitors ??? Trulicity [Dulaglutide] Gi Side effect ROS: The rest of the pertinent 10 point review of systems is negative other than mentioned in the HPI PHYSICAL EXAM: Vitals: 11/20/22 0827 BP: 114/60 BP Cuff Location: Right arm BP Patient Position: Sitting BP Cuff Sizes: Adult, regular Pulse: 67 SpO2: 97% Weight: 71.7 kg (158 lb) Height: 162.6 [...] Alert and oriented x3. Gait normal DATA: MPI 01/15/2020: Impressions: Normal perfusion by Tc99m Sestamibi Imaging. Abnormal contraction consistent with cardiomyopathy. Low risk of cardiac events, but higher compared to non-diabetics. Summary: Myocardial perfusion imaging: No myocardial perfusion defects noted. The left ventricular end-systolic volume is 67ml. The calculated left ventricular ejection fraction after stress: 45%. LV global systolic function is mildly reduced. No left ventricular regional motion abnormality.Stress ECG conclusions: The stress ECG is negative. Baseline ECG: Sinus bradycardia with 1degrees AV block and a nonspecific intraventricular conduction defect. ECHOCARDIOGRAM 11/11/2022 Left Ventricle The left ventricular cavity was small in size. Left ventricular systolic function was hyperdynamic with an ejection fraction =>65%. There was severe asymmetric hypertrophy of the left ventricle (ED thickness 1.9 cm). Left ventricular wall motion was normal; there were no regional wall motion abnormalities. Right Ventricle The right ventricular cavity was normal in size. Right ventricular systolic function was normal. Right ventricular wall thickness was normal. Left Atrium The left atrium was normal in size. Right Atrium The right atrium was normal in size. Aortic Valve The aortic valve structure was trileaflet. The aortic leaflets were mildly thickened and mildly calcified. There was mild aortic valve stenosis. There was no aortic valve regurgitation. AV Peak Velocity: 2.4 m/s. AV Mean Gradient: 13 mmHg. AV Area VTI: 1.6 cm2. Mitral Valve The mitral leaflets were mildly thickened and were mildly calcified. There was no significant mitral valve stenosis or regurgitation. Tricuspid Valve Tricuspid valve structure was normal. There was no significant tricuspid valve regurgitation. There was no tricuspid valve stenosis. Pulmonic Valve The pulmonic valve was not well visualized. There was no pulmonic valve regurgitation. There was no pulmonic valve stenosis. Pulmonic Artery Unable to assess PA pressure. Ascending Aorta The aorta was normal in size. Pericardium There was no pericardial effusion. IVC/SVC The inferior vena cava was normal in size. Lab Results Component Value Date HGB 8.7 (L) 11/20/2022 HCT 26.9 (L) 11/20/2022 PLT 393 (H) 11/20/2022 CHOL 143 08/01/2021 HDL 40 08/01/2021 LDL 156 (H) 06/05/2019 LDLBASE 65 08/01/2021 TRIG 188 08/01/2021 HGBA1C 7.1 (H) 11/11/2022 ASSESSMENT/PLAN 1. ?CAD recent NSTEMI awaiting ischemic work up at [facility] which couldn't be completed during recent admission due to acute GIB. Negative MPI 2019. [facility] recommended and will be planned when patient stable. Will need to consider pt ability to take further antiplatelet agents if needed 2. HCM severe asymmetric hypertrophy of LV with septal thickness 1.9 cm. Work up includes MCOT which she will start today. Awaiting MRI at [facility] 12/31. Spoke with Dr. Sebastian at [facility] who saw her in consultation. Referral sent to have him follow up with her as outpatient. Awaiting appointment. Low dose Metoprolol started while at [facility] -Consult pending with Dr. Sebastian with the Advanced Heart Failure Team -cMRI 12/31 3. NSVT. Currently wearing MCOT. MRI pending. Awaiting ischemic work up at [facility] -MCOT in process with known brief asymptomatic episodes of NSVT. -Continue low dose BB -Will need evaluation for possible device (ICD) 4. PAF. Off Eliquis due to recent acute GIB. Await follow up with GI to resume. -Awaiting follow up with GI. Recommend restarting Eliquis to reduced stroke risk as soon as possible 5. Second degree AVB type I and II seen on telemetry. First degree AVB on EKG today. -Decreased BB dose -Assessing for possible need for device (PPM) 6. HTN. Well controlled 7. HDL. LDL treated to target on REPATHA. Statin intolerant -Continue Repatha. Target LDL <70 8. DM2 9. CVA (left MCA) 2017. Aspirin DC during recent admission d/t duodenal ucler 10. . Mild on most recent echo Patient advised to seek immediate medical attention [...] the time of the visit. Carlos Ha NP0 documented in this encounter Miscellaneous Notes * Assessment & Plan Note - Carlos Ha NP - 11/20/2022 0840 EDTAssociated Problem(s): Paroxysmal atrial fibrillation (HCC-CMS) She is appropriately anticoagulated for stroke risk reduction. documented in this encounter Plan of Treatment Upcoming Encounters Date Type Department Care Team (Late st Contact Info) Description 03/08/2024 9:30 EDT Ancillary Procedure [facility] - [facility] [address] [place] [address] 03/08/2024 10:15 EDT Ancillary Procedure [facility] - [place] [address] [place] [address] 04/05/2024 10:00 EDT Ancillary Procedure [facility] [address] [place] [id number] 04/05/2024 10:00 EDT Office Visit [facility] [address] [place] [address] Carlos Ha NP [address] [place] [address] [place] [address] Scheduled Referrals Name Type Priority Associated Diagnoses Orde r Schedule AMB CONS/FOLLOW UP CARDIOLOGY Outpatient Referral Routine/Next Available Paroxysmal atrial fibrillation (HCC-CMS) Ventricular tachycardia (HCC-CMS) Hypertrophic cardiomyopathy (HCC-CMS) AVB (atrioventricular block) Elevated troponin Expected: 12/01/2022 (Approximate), Expires: 11/25/2023 documented as of this encounter Procedures Procedure Name Priority Date/Time Associated Diagnosis Comments ECG REPORT - SCANNED 11/23/2022 12:57 EDT EKG 12-LEAD Routine 11/20/2022 10:21 EDT Paroxysmal atrial fibrillation (HCC-CMS) documented in this encounter Results * ECG REPORT - SCANNED (11/23/2022 12:57 EDT) 11/23/2022 12:5 7 EDT Scan 2 Licensing And Registration Director PROCEDURE/MINOR RCOW GICAL ORDERABLES * EKG 12-LEAD (11/20/2022 10:21 EDT) 11/20/2022 10:2 1 EDT [facility] - 11/22/2022 12:29 EDT ? CVC ? Test Date: ?2022-11-20 Pat Name: ? JOANNA GAUTAM ?Department: ? Room: ? Gender: ? Female ? Horseradish Grinder: ?? ES : ?1950 ? Requested By: AMIRAH Jimenez Order Number: [id number] ? Oleksandr HAY: ?? JASON PAUL MD ? Measurements Intervals ?[place] ? Rate: ? 72 ? P: ? UT: ? 312 ?QRS: ?-13 QRSD: ? 116 ?T: ?153 QT: ? 446 ? QTc: ?488 ? Interpretive Statements Sinus rhythm with 1st degree AV block with occasional premature ventricular complexes Left ventricular hypertrophy with QRS widening and repolarization abnormality Cannot rule out Septal infarct , age undetermined Compared to ECG 11/12/2022 09:47:49 Ventricular premature complex(es) now present ST (T wave) deviation no longer present Myocardial infarct finding still present I reviewed the tracing and have either agreed or edited the findings in this report. Electronically Signed On 11-22-2022 12:29:59 EDT by JASON PAUL MD. Procedure Note Jason Paul MD - 11/22/2022 CVC Test Date: 2022-11-20 Pat Name: JOANNA HART Department: Room: Gender: Female Horseradish Grinder: ES : 1950 Requested By: AMIRAH Jimenez Order Number: [id number] Reading MD: JASON PAUL MD Measurements Intervals [place] Rate: 72 P: UT: 312 QRS: -13 QRSD: 116 T: 153 QT: 446 QTc: 488 Interpretive Statements Sinus rhythm with 1st degree AV block with occasional premature ventricular complexes Left ventricular hypertrophy with QRS widening and repolarizationabnormality Cannot rule out Septal infarct , age undetermined Compared to ECG 11/12/2022 09:47:49 Ventricular premature complex(es) now present ST (T wave) deviation no longer present Myocardial infarct finding still present I reviewed the tracing and have either agreed or edited the findings inthis report. Electronically Signed On 11-22-2022 12:29:59 EDT by JASON SHARP. Carlos Ha NP CARDIAC ECG ORDERABL ES Performing Organization Address City/[facility]/ZIP Co de Phone Number [facility] * (ABNORMAL) TRANSFERRIN SATURATION (11/20/2022 10:02 EDT) Iron 34(L) 37 - 170 ??g/dL 11/20/2022 15:41 EDT [facility] Iron Binding Capacity 315 240 - 450 ??g/dL 11/20/2022 15:41 EDT [facility] Transferrin Saturation 11(L) 15 - 45 % 11/20/2022 15:41 EDT [facility] Blood VENOUS BLOOD / Unknown Venipuncture / Unknown 11/20/2022 10:02 EDT 11/20/2022 10:44 EDT Carlos Ha NP CHEMISTRY & BLOOD GA S ORDERABLES Performing Organization Address [facility]/ZIP Co de Phone Number [facility] [address] [place] [address] * (ABNORMAL) BASIC METABOLIC PANEL (BMP) (11/20/2022 10:02 EDT) Sodium 139 136 - 145 mmol/L 11/20/2022 11:14 EDT [facility] Potassium 4.8 3.5 - 5.0 mmol/L 11/20/2022 11:14 EDT [facility] Chloride 108 96 - 110 mmol/L 11/20/2022 11:14 EDT [facility] CO2 Total 23 22 - 32 mmol/L 11/20/2022 11:14 EDT [facility] Anion Gap 8 5 - 14 mmol/L 11/20/2022 11:14 EDT [facility] Glucose 177(H) 70 - 100 mg/dl 11/20/2022 11:14 [facility] Calcium 10.0 8.5 - 10.5 mg/dL 11/20/2022 11:14 [facility] BUN 11 10 - 26 mg/dL 11/20/2022 11:14 [facility] Creatinine 0.84 0.52 - 1.04 mg/dL 11/20/2022 11:14 [facility] eGFR 75 >60 mL/min/1.73 m2 11/20/2022 11:14 [facility] Blood VENOUS BLOOD / Unknown Venipuncture / Unknown 11/20/2022 10:02 EDT 11/20/2022 10:44 EDT Carlos Ha NP CHEMISTRY & BLOOD GA S ORDERABLES Performing Organization Address City/State/[facility] Co de Phone Number [facility] [address] [place] [address] * (ABNORMAL) COMPLETE BLOOD COUNT AND DIFFERENTIAL (11/20/2022 10:02 EDT) WBC 7.59 4.00 - 12.40 K/cmm 11/20/2022 10:39 [facility] RBC 2.96(L) 3.86 - 5.04 M/cmm 11/20/2022 10:39 [facility] Hemoglobin 8.7(L) 11.6 - 15.2 g/dL 11/20/2022 10:39 [facility] HCT 26.9(L) 34.9 - 44.4 % 11/20/2022 10:39 [facility] MCV 91 81 - 98 fL 11/20/2022 10:39 [facility] MCH 29.4 26.7 - 33.3 pg 11/20/2022 10:39 [facility] MCHC 32.3 32.1 - 35.9 g/dL 11/20/2022 10:39 [facility] RDW-CV 14.8(H) <14.7 % 11/20/2022 10:39 [facility] RDW-SD 47.4 <50.4 fl 11/20/2022 10:39 [facility] PLT 393(H) 141 - 377 K/cmm 11/20/2022 10:39 [facility] MPV 11.0 9.5 - 12.7 fL 11/20/2022 10:39 [facility] % Neutrophils 62.6 % 11/20/2022 10:39 [facility] % Lymphocytes 27.1 % 11/20/2022 10:39 [facility] % Monocytes 7.4 % 11/20/2022 10:39 [facility] % Eosinophils 2.0 % 11/20/2022 10:39 [facility] % Basophils 0.5 % 11/20/2022 10:39 [facility] % Immature Grans 0.4 % 11/21/19 10:39 [facility] Absolute Neutrophils 4.75 2.20 - 8.85 K/cmm 11/20/2022 10:39 [facility] Absolute Lymphocytes 2.06 1.09 - 3.30 K/cmm 11/20/2022 10:39 [facility] Absolute Monocytes 0.56 0.10 - 0.80 K/cmm 11/20/2022 10:39 [facility] Absolute Eosinophils 0.15 0.03 - 0.61 K/cmm 11/20/2022 10:39 [facility] ABS Basophils 0.04 0.01 - 0.11 K/cmm 11/20/2022 10:39 [facility] Absolute Immature Grans 0.03 0.00 - 0.06 K/cmm 11/20/2022 10:39 [facility] Type of Differential: Auto 11/20/2022 10:39 [facility] Blood VENOUS BLOOD / Unknown Venipuncture / Unknown 11/20/2022 10:02 EDT 11/20/2022 10:35 EDT Carlos Ha NP PACKAGES & DNA PROBE ORDERABLES [facility] [address] [place] [address] documented in this encounter Visit Diagnoses Diagnosis Ventricular tachycardia (HCC-CMS)- Primary Paroxysmal ventricular tachycardia Hypertrophic cardiomyopathy (HCC-CMS) Other hypertrophic cardiomyopathy Paroxysmal atrial fibrillation (HCC-CMS) Atrial fibrillation AVB (atrioventricular block) Atrioventricular block, unspecified Elevated troponin Other abnormal blood chemistry Essential hypertension Unspecified essential hypertension Gastrointestinal hemorrhage, unspecified gastrointestinal hemorrhage type Duodenal erosion Duodenal ulcer, unspecified as acute or chronic, without hemorrhage, perforation, or obstruction Esophagitis Esophagitis, unspecified documented in this encounter Care Teams Supervisor Building Maintenance Relationship Specialty Start Date End Date Bryant Crain MD [address] [place], [place] [id number] PCP - General 05/04/15 05/17/23 Carlos Ha NP [address] [facility] [address] [place] [address] Consulting Clinician Cardiovascular Disease 09/14/21 documented as of this encounter
--- OUTSIDE RECORDS SUMMARY | 2024-01-07 11:13 | XMS_ITS | Encounter Summary ---
Author Organization [facility] Address [address] [place] [address] Care Team Providers Care Lead Loader Name Role Phone Bryant Crain MD Primary Care Provider [phone] Carlos Ha LACING STRING CUTTER Unavailable [phone] Reason for Visit * Auth/Cert (Routine) Specialty Diagnoses / Procedures Referred By [facility] Referred To Contact Diagnoses NSTEMI (non-ST elevated myocardial infarction) ([facility]) NSTEMI, rising troponin Referral ID Status Reason Start Date Expiration Date Visits Re quested Visits Authorized [id number] 1 1 Encounter Details Date Type Department Care Team (Late st Contact Info) Description 12/08/2022 14:40 EDT - 12/08/2022 15:40 EDT Surgery [facility] Invasive Cardiology Unit [address] [place] [address] Edgardo Ha MD [address] [place] [address] [place] [phone] Left Heart Cath Surgery Details Date/Time Status Location OR Service Patient Class Case Class Case Type Trauma Case? 12/08/22 1440 Posted [facility] Bartender Manager Bartender Manager 3 Interventional Cardiology Inpatient Panel 1 Procedure LRB Anes Op Region Wound Class Comments Left Heart Cath Left None Chest Percutaneous Coronary Intervention N/A None Chest OCT N/A None Chest Surgeon Surgeon Role Service Panel Edgardo Ha MD Primary Interventional Cardiol ogy 1 Eddie Damon Fellow Interventional Card iology 1 documented in this encounter Social History [...] Sign Reading Time Taken Comments Blood Pressure 135/68 12/08/2022 1215 EDT Pulse 70 12/06/2022 1259 EDT Temperature 36.7 ??C (98.1 ??F) 12/08/2022 0853 EDT Respiratory Rate 16 12/08/2022 0853 EDT Oxygen Saturation 98% 12/08/2022 1221 EDT Inhaled Oxygen Concentration - - Weight 67.8 kg (149 lb 6.4 oz) 12/08/2022 0609 E DT Height 162.6 cm (5' 4.02) [...] as of this encounter Discharge Summaries * Sheela ColletteRAHEEM sherman - 12/09/2022 1311 EDT Images from the [...] Resolved ??? NSTEMI (non-ST elevated myocardial infarction) ([facility]) ([facility]) 12/07/2022 Principal Procedure: Heart cath and Percutaneous coronary intervention Date: 12/08/2022 Access: Right radial artery ?? Procedure: She was brought to [facility] Cardiac [facility] for the procedure: [...] from base to apex. The distal apex ([id number]) is concentrically involved by delayed enhancement. Left [...] Disease presenting as a direct transfer from [facility] where she presented on 12/01 due to shortness of breath, and chest tightness that woke her up from her sleep 3- 4 days prior. At [facility] she was diuresed with IV lasix BID, however trop was still dynamic, requiring a transfer for an ischemic evaluation. At [facility] she underwent a NM PET scan which showed reversible ischemia and she was therefore taken to the cath lab nurse for further evaluation and treatment. Patient had heart cath and stenting as above. Patient did well overnight and was free of arrhythmias on telemetry. Echo done, EF 60-65% with diastolic dysfunction and septal asymmetric hypertrophy which is chronic for her. Patient was restarted on TAR PROCESSING TECHNICIAN GDMT as well as new to her jardiance, losartan and spironolactone, tolerating well. Advise following up with OP provider to titrate GDMT as clinically indicated. Of note, patient had a few episodes of asymptomatic AV lilly dysfunction, EP consulted and after reviewing her ECGs and tele, recommend safe discharge on TAR PROCESSING TECHNICIAN metop 12.5mg daily, restarted during this admission [...] was requested with PCP and Carlos Ha LACING STRING CUTTER. Pt was also referred for cardiac rehab evaluation at [facility]. Of note, PLT noted to be elevated [...] ??? Propoxyphene N-Acetaminophen Other reaction(s): Hallucinations ??? Qnfuryo-Bpw-Nkl Reductase Inhibitors ??? Trulicity [Dulaglutide] Gi Side [...] 11/11/2022 Discharge Follow Up Appointments Scheduled with [facility] Appointments Outside of [facility] We Will Schedule Follow-up appointments and procedures [facility] Cardiac Rehabilitation Referral Your local cardiac rehab program will contact you and/or your electronics installer to discuss. Authorizing Provider: Collette Coker NP [...] Dec 15, 2022 (Approximate) Authorizing Provider: Collette Coker NP Medication List START taking these medications [...] for 7 days. blood glucose meter by [facility] (non-drug; combo route) route daily. One touch verio meter or best covered by insurance. cetirizine 10 mg tablet Commonly known as: ZYRTEC Cholecalciferol (Vitamin D3) 10 mcg (400 unit) tablet cyanocobalamin 500 mcg tablet Commonly known as: VITAMIN B-12 FreeStyle Vicky 2 [place] [facility] Generic drug: flash glucose scanning reader 1 Device by [facility] (non-drug; combo route) route daily. Dispense one [...] Tablets by mouth daily. ONE TOUCH COMBO [facility] OneTouch Ultra Blue Test Strip test strips [...] gauge x 1/4 needle Generic drug: Insulin [place] (Disposable) * This list has 2 medication(s) that are the same as other medications prescribed for you. Read thedirections carefully, and ask your doctor or other care provider to review them with you. Where to Get Your Medications These medications were sent to [facility] - [address] [address] ?? aspirin 81 mg EC tablet ?? [...] up with your primary care provider or electronics installer. * Discharge Instr - DME* Zandra Monge [...] hyperglycemia, with long-term current use of insulin ([facility]) by misc (non-drug; combo route) route daily. [...] glucose scanning reader (FREESTYLE VICKY 2 READER) [facility] 1 Device by mis (non-drug; combo route) [...] 1 Tablet by mouth 2 times daily. NowSpotsTOUCH ULTRA BLUE TEST STRIP test strips TEST [...] Means Destination Comment s Home or Self Fdc documented in this encounter Progress Notes * Ramona Ingram - 12/08/2022 1442 EDT Spiritual Care Department Community Living Instructor Note Re: Fortunato Hart : 1950 Room: [facility] Service: Cardiology Druze: Amish Fortunato has received a visit from the Spiritual Care Department on 12/08/2022. Assessment/Comments: I responded to Fortunato's request for the Sacrament before her procedure. Met with her and her spouse, Kenneth at bedside. They were both receptive and engaged this Community Living Instructor. I explored with Fortunato, her hospitalization, treatment [...] Care Welcomed End of Life Patient Is Rastafari Importance Moderately Important Current Support System Spouse/Significant Other, Family/Friends Level of Support Strong Support ENCOUNTER DATA Date of Encounter 12/08/22 Time of Encounter 1145 Reason for Encounter Referral Referred by Community Living Instructor Care Level 4 - Significant Patient Concerns Reason not visited ENCOUNTER Needs Addressed Community Living Instructor Support, Fear/Anxiety, Sacraments Interventions Assessed and Affirmed Strengths, Build Relationship, Prayer, Sacraments Sacraments Provided Anointed Date of Anointing 12/08/22 Communion Date of Communion Date of Jainism OUTCOME Outcome Stress Level Reduced Stress Outcome of Encounter Patient Satisfied, Needs Met CARE PLAN Plan Patient/Family will Call if Needed Consult With Additional Support Was Clergy Needed? Yes, provided, Brake Liner TIME STAMP: Total time spent 20 minutes in direct floor time; >50% of time was spent in spiritual care. RAMONA INGRAM 12/08/2022 14:42 * Kaila Dotson - 12/08/2022 0931 EDT Spiritual Care Department Community Living Instructor Note Re: Fortunato Hart : 1950 Room: [place] [id number] Service: Cardiology Druze: Amish Fortunato has received a visit from the Spiritual Care Department on 12/08/2022. Assessment/Comments: Fortunato and Kenneth (of forty-five years!) welcome ui programmer music intern. Both appear to be coping well with humor, family texting, and going through word puzzles together, though Fortunato shares that 'I'm a little anxious' about the waiting - 'I'd just like to get the heck on out of here.' Community Living Instructor music intern affirms the understandable anxiety and frustration of uncertainty. Per Fortunato, her Amish charly provides further meaning. She would like sacramental support from a Amish ui programmer when possible. Community Living Instructor music intern will reach out to Father Ramona, unit staff ui programmer. DEMOGRAPHICS Spiritual Care Welcomed Patient Is Rastafari Importance Moderately Important Current Support System Spouse/Significant Other, Family/Friends Level of Support Strong Support ENCOUNTER DATA Date of Encounter 12/08/22 Time of Encounter 0910 Reason for Encounter Initial Visit Care Level 3 - Some Matter of Substance ENCOUNTER Needs Addressed Community Living Instructor Support, Family Support, Fear/Anxiety, Frustration, Gratitude, Prayer Support Interventions Assessed and Affirmed Strengths, Assessed Spiritual/Rastafari Needs, Build Relationship, Explored Spiritual/Relgious/Social Supports, Family Support, Prayer OUTCOME Outcome Stress Level Reduced Stress Outcome of Encounter Continues to Process Issue, Family Supported CARE PLAN Plan Continued Community Living Instructor Support Was Clergy Needed? Yes, unavailable, Brake Liner TIME STAMP: Total time spent 10 minutes [...] present. Medications Reviewed: Changes notable for holding TAR PROCESSING TECHNICIAN metoprolol due to long QTc Labs Reviewed: [...] of diffuse obstructive coronary disease, plan for [facility]. N-STEMI: HLD HTN Symptomatic, troponin peaked at [...] - Hx of statin intolerance, on Repatha TAR PROCESSING TECHNICIAN - [facility] today - cont losartan 25 mg ?? Hypertrophic Cardiomyopathy -Cardiac MRI w/ velocity map: severe concentric hypertrophy with EF 60%, distal portion of LV completely obliterates in systole, no abnormal mitral valve motion or LVOT obstruction, aortic stenosis - Daily Mg - cont TAR PROCESSING TECHNICIAN Metoprolol tartrate 12.5 mg BID ?? Acute on chronic HFpEF Exacerbation: P/w e/o mild fluid overload consistent with HF exacerbation. Last TTE with EF 60-65% with findings consistent with diastolic dysfunction. BNP in ED at [facility] 3200. Has been euvolemic - start spironolactone [...] - SSI - Lantus 20 U daily (TAR PROCESSING TECHNICIAN dose is 31) - Aspart 7 U TID ACHS - Hold TAR PROCESSING TECHNICIAN Metformin - losartan 25 mg as above 1st deg AV delay VTE Prophylaxis Pharmacologic Prophylaxis: Heparin gtt Discharge Plan Home or self care Greer Hooks MD PGY-3 #[id number] 12/08/22 7:22 Associated attestation - Von Walters MD - 12/08/2022 1505 EDT Attending Attestation: I have personally seen and examined Fortunato Hart , discussed the patient's management with the team, and agree with the findings and plan as outlined by Dr. Hooks. In addition, [facility] today revealed RCA stenosis concordant with the perfusion abnormality seen on PET, now s/pPCI. Von Walters MD * Greer Hooks MD - 12/07/2022 6260 EDT Cardiology Progress note Service Date: 12/07/2022 [...] Intake/Output Summary (Last 24 hours) at 12/07/2022 0729 Last data filed at 12/06/20222034 Gross per [...] present. Medications Reviewed: Changes notable for holding TAR PROCESSING TECHNICIAN metoprolol due to long QTc Labs Reviewed: [...] Possible troponin leak 2/2 true type 1 AK vs HCM. -Eliquis taken earlier (12/03) - Telemetry class I - aspirin 81mg daily - Heparin gtt - Nitro 0.4mg SL q5min prn - Hx of statin intolerance, on Repatha TAR PROCESSING TECHNICIAN - supplemental O2 if needed - NM-PET [...] with EF 60-65%. BNP in ED at [facility] 3200 - TAR PROCESSING TECHNICIAN GDMT ??? Metoprolol tartrate 12.5 mg BID [...] - SSI - Lantus 20 U daily (TAR PROCESSING TECHNICIAN dose is 31) - Aspart 7 U TID ACHS - Hold TAR PROCESSING TECHNICIAN Metformin 1st deg AV delay VTE Prophylaxis [...] coronary disease. Thus we will proceed with [facility]. Von Walters MD * Elsie Otoole - 12/06/2022 1707 EDT Cardiology Progress note Service Date: 12/06/2022 Admit Date: 12/03/2022 22:09 Reason for Admission: 72 y.o. female admitted with a chief complaint of chest pain and now with a principal diagnosis of NSTEMI. Events/ Procedures in the last 24 Hours: NAEO Subjective/Objective Subjective Fortunato is feeling better and [...] present. Medications Reviewed: Changes notable for holding TAR PROCESSING TECHNICIAN metoprolol due to long QTc Labs Reviewed: CBC: Recent Labs 12/04/22 0712/05/22 1218 12/06/22 0628 WBC 8.02 7.00 7.20 [...] last 72 hours. Cardiac Biomarkers: Recent Labs 12/03/22 2353 TROPONINI 0.105* Lipids: Recent Labs 12/03/22 [...] - Hx of statin intolerance, on Repatha TAR PROCESSING TECHNICIAN - supplemental O2 if needed - potential [facility] Wednesday - NPO at midnight for potential [...] with EF 60-65%. BNP in ED at [facility] 3200 - TAR PROCESSING TECHNICIAN GDMT ??? Metoprolol tartrate 12.5 mg BID [...] diet - SSI - Lantus 20 U daily(TAR PROCESSING TECHNICIAN dose is 31) - Aspart 7 U TID ACHS - Hold TAR PROCESSING TECHNICIAN Metformin 1st deg AV delay VTE Prophylaxis Pharmacologic Prophylaxis: Heparin gtt Discharge Plan Home or self care Elsie Otoole MD Internal Medicine PGY-1 Pager #[phone] ELSIE OTOOLE 12/06/2022 14:47 Associated attestation - [...] present. Medications Reviewed: Changes notable for holding TAR PROCESSING TECHNICIAN metoprolol due to long QTc Labs Reviewed: [...] hours. Cardiac Biomarkers: Recent Labs 12/02/22 2327 12/03/2261312/03/22 2353 TROPONINI 0.112* 0.106* 0.105* Lipids: Recent [...] - Hx of statin intolerance, on Repatha TAR PROCESSING TECHNICIAN - supplemental O2 if needed - potential [...] with EF 60-65%. BNP in ED at [facility] 3200 - TAR PROCESSING TECHNICIAN GDMT ??? Metoprolol tartrate 12.5 mg BID [...] diet - SSI - Lantus 20 U daily(TAR PROCESSING TECHNICIAN dose is 31) - Aspart 7 U TID ACHS - Hold TAR PROCESSING TECHNICIAN Metformin 1st deg AV delay VTE Prophylaxis Pharmacologic Prophylaxis: Heparin gtt Discharge Plan Home or self care VIKASH GUZMAN MD 12/05/2022 7:43 * Alysia Aguiar [facility] - 12/04/2022 1615 EDT Transitions of Care - Pharmacy Admission Medication Reconciliation Fortunato Hart is a 72 y.o. female admitted on 12/03/2022 for NSTEMI (non-ST elevated myocardial infarction) ([facility]) ([facility]) Pharmacist Interventions/Recommendations: 1. TAR PROCESSING TECHNICIAN med list updated 2. Pharmacy to call [...] 1/4 needle ??? blood glucose meter by [facility] (non-drug; combo route) route daily. One touch verio meter or best covered by insurance. ??? cetirizine (ZYRTEC) 10 mg tablet Take 1 Tablet by mouth daily. ??? Cholecalciferol, Vitamin D3, 10 mcg (400 unit) tablet Take 1 Tablet by mouth daily. ??? cyanocobalamin (VITAMIN B-12) 500 mcg tablet Take 1 Tablet by mouth daily. ??? flash glucose scanning reader (FREESTYLE VICKY 2 READER) [facility] 1 Device by [facility] (non-drug; comboroute) route daily. Dispense one reader [...] ??? lancets/blood glucose strips ([facility]) -to test blood sugar - twice daily [...] 1 SYRINGE SUBCUTANEOUSLY EVERY 2 WEEKS ??? EBEN SCHWARTZ Preferred Pharmacy: [facility] - [address] ALYSIA AGUIAR RPH * Elsie Otoole [...] present. Medications Reviewed: Changes notable for holding TAR PROCESSING TECHNICIAN metoprolol due to long QTc Labs Reviewed: [...] - Hx of statin intolerance, on Repatha TAR PROCESSING TECHNICIAN - supplemental O2 if needed - potential [facility] Wednesday - NPO at midnight Wednesday - NPO now for potential stress test - Lipid profile: cholesterol 107, HDL 40, LDL 29 ?? HYpertrophic Cardiomyopathy -Cardiac MRI w/ velocity map ordered -Daily Mg ?? Acute on chronic HFpEF Exacerbation: P/w e/o mild fluid overload consistent with HF exacerbation. Last TTE with EF 60-65%. BNP in ED at [facility] 3200 - TAR PROCESSING TECHNICIAN GDMT ??? Metoprolol tartrate 12.5 mg BID [...] diet - SSI - Lantus 20 U daily(TAR PROCESSING TECHNICIAN dose is 31) - Aspart 7 U TID ACHS - Hold TAR PROCESSING TECHNICIAN Metformin VTE Prophylaxis Pharmacologic Prophylaxis: Heparin gtt Discharge Plan Home or self care Elsie Otoole MD Internal Medicine PGY-1 Pager #[phone] ELSIE OTOOLE 12/04/2022 14:32 * Mary Falcon RN - 12/04/2022 8055 EDT 12/04:The following assessment was completed on 12/01 at the [facility]; CM will continue to follow Mary Falcon RN [facility] #[id number] Initial Case Management/Social Work Assessment and Discharge Plan/Readmission Risk Assessment ?? REASON FOR ADMISSION: Acute heart failure, unspecified heart failure type (HCC- CMS) (HCC) Patient understands reason for admission: Yes ?? PATIENT INFO VERIFIED: PCP Type of housing (single family, condo, apartment, assisted, single room occupancy, [facility] funded hotel room, group [place] [facility]) - Home Who does the patient live with? Does the patient have access to their own bedroom/bathroom/kitchen - or is it shared with others? Yes Name of housing complex (ex [facility], [facility], etc)- n/a Housing Authority/Managing Organization - n/a Community Care Providers (behavioral health case manager, [facility] nurse, etc) name and contact information- n/a ? LIVING ARRANGEMENTS AND ACCESSIBILITY ISSUES: Living Arrangements: Spouse / significant other Levels: 1 Stairs to enter: 0 Handicap access: None Bathroom located on bedroom level?: Yes ?? What in home social supports are available to the patient? Spouse / significant other Is 24/7 care available? Yes ?? ADVANCED DIRECTIVES, POA &/or COLST IN PLACE: Healthcare Directive: Yes, patient has advance directive for healthcare treatment Type of Healthcare Directive: Durable power of employment attorney for health care, Health care treatment directive Copy in Chart: Yes, new copy in paper chart @ [facility] Information Provided on Healthcare Directives: No Information on Healthcare Directives Requested: No DIRECTIVES FOR FINANCES: Directive For Finances: No ?? TRANSPORTATION: Transportation: Family Transportation Additional Details: vs. ambulance to [facility] Final Discharge Destination: Home Patient expects to be discharged to: Home ?? CULTURAL, MORMONISM and/or LANGUAGE factors affecting health care/discharge planning: Spiritual/Cultural Requests: None ?? Insurance Information: Medical Insurance: Yes Type of insurance: Medicare ([facility]) Referred to patient financial services: No ?? [...] Home Health Services: None DME Provider: Pharmacy: [facility] - [address] [address] ?? [id number] - [address] [address] ?? Home Health: Other: ?? POST HOSPITAL TRANSITION PLAN: Patients PCP, pharmacy and demographics verified. Patient lives withher in a one story house with one step to enter. Patient has an advanced directive on file listing her as medical agent. Patient utilizes a walker and no other DME's. Patient is expected to transfer to [facility] today for a heart cath. CM to follow. ?? CHARITO MOCK 12/02/2022 9:57 documented in this encounter H&P Notes * Randy Sebastian MD - 12/03/2022 6442 EDT STAFF ATTESTATION: I, Randy Sebastian MD, [...] Disease presenting as a direct transfer from [facility] where she presented on 12/01 due to shortness of breath, and chest tightness that woke her up from her sleep 3- 4 days prior. Otherwise has been doing well, no recent GIB no melanotic stools since her discharge last month. Per [facility] note: She presented to the emergency department [...] peaked at 0.11. Cardiology recommended transfer to [facility] for cardiac catheterization. She was not started [...] noted in HPI. Prior Cardiac History: 11/20 [facility] cardiology clinic event monitor worn 10/13/2022-11/12/2022 which [...] 1/4 needle ??? blood glucose meter by [facility] (non-drug; combo route) route daily. One touch [...] glucose scanning reader (FREESTYLE VICKY 2 READER) [facility] 1 Device by [facility] (non-drug; comboroute) route daily. Dispense one reader [...] ??? lancets/blood glucose strips (ONE TOUCH COMBO [facility]) -to test blood sugar - twice daily [...] ??? Propoxyphene N-Acetaminophen Other reaction(s): Hallucinations ??? Geiwetl-Hrw-Gom Reductase Inhibitors ??? Trulicity [Dulaglutide] Gi Side [...] Disease presenting as a direct transfer from [facility] fpr NSTEMI. Plan N-STEMI: HLD HTN symptomatic,troponin peaked at .130 on 12/01, initially down-trended than began to uptrend from .97 to peak of .112 on 12/02 -Eliquis taken earlier today (12/03) - Telemetry class I - repeat troponin - aspirin 81mg daily - Heparin gtt - Nitro 0.4mg SL q5min prn - Hx of statin intolerance - on Repatha TAR PROCESSING TECHNICIAN - supplemental O2 if needed - potential [facility] Wednesday - NPO at midnight Wednesday - NPO now for potential stress test - ordered lipid profile HYpertrophic Cardiomyopathy -Cardiac MRI w/ velocity map ordered -Hold BB due to prolonged Qt -Daily Mg Acute on chronic HFpEF Exacerbation: P/w e/o mild fluid overload consistent with HF exacerbation. Last TTE with EF 60-65%. BNP in ED at [facility] 3200 - TAR PROCESSING TECHNICIAN GDMT ??? Hold Metoprolol due to prolonged [...] diet - SSI - Lantus 20 U daily(TAR PROCESSING TECHNICIAN dose is 31) - Aspart 7 U TID ACHS - Hold TAR PROCESSING TECHNICIAN Metformin Code status: Full Code Diet: DIET HEART HEALTHY DIET NPO AFTER MIDNIGHT- Wednesday VTE Prophylaxis: Hep gtt, hold TAR PROCESSING TECHNICIAN apixaban Consults: None Discharge: Unclear, pending resolution of above Darion Tinajero MD PGY-2 Internal Medicine Epic secure chat, #[id number] 12/03/22 22:46 documented in this encounter Procedure Notes * Edgardo Ha MD - 12/08/2022 1600 EDT Dear Bryant Crain Fortunato Hart underwent cardiac catheterization at [facility] on 12/08/2022. She had presented with some [...] artery Procedure: She was brought to [facility] for the procedure: [...] well. Post Procedure Follow Up: John Ha LACING STRING CUTTER at [facility] cards Post Interventional Conclusion/Physician Disposition: (check one main category) Inpatient procedure, continue inpatient status (no procedural complication required) Edgardo Ha MD PagerNumber: 12/08/2022 16:00 documented in this encounter Miscellaneous Notes * Plan of Care - Tiffanie Fernandez RN - 12/09/2022 1346 EDT D: Pt s/p C w/ 1 stent to RCA via RRA, [...] of Care - Mary Falcon RN - 12/09/2022 0977 EDT 12/09/22926 Medicare IM Notice IM notice status Patient received notification verbally and in writing while in hospital. IM notice given at discharge? Yes * Plan of Care - Mikal Murphy RN - 12/08/2022 0878 EDT Data: Assumed care at 1900. Pt [...] Goals Goal: Care Plan Documentation Flowsheets (Taken 12/08/2022 2024) Area of Focus: Pain/ Comfort Goal This Shift: No pain at the incision site Problem: High Fall Risk: Goal: Patient will Remain Free of Falls due to Med. Side Effects Outcome: Ongoing * Plan of Care - Loren Maier RN - 12/08/2022 1825 EDT Data: Patient NPO for [facility] this morning. VS stable and patient denies pain. AM meds admin and MDs rounded. On tele, patient SR with HR 50-60s with large 1st AVB. Action: Patient noted to have intermittent 2nd HB Type II at 1212 with HR 36-40 bpm and MD updated.Karla duque'd. RN admin steroids and benadryl per orders prior to LHC due to previous allergic reaction to contrast. Patient to cath lab nurse with RN and [place] at ____. Response: Patient returned to [place] [address] at 1620 with 1 MADONNA to RCA. [...] rate. Call woods within reach. Plan for [facility] today. Mikal Murphy 6/20/23 Problem: Daily Care Plan Goals Goal: Care [...] around with as contact guard. Plan for [facility] tomorrow. NPO after MN Action: Assessments documented [...] given per AUG. Tele monitored per policy. Continue to infuse heparin gtt per policy. VS assessment completed. Response: Pt is resting comfortably in bed. VSS. Safety measure checked. SBP maintains at 130s. Heparin infused at the current rate. Call woods within reach. Plan for LHC/ NM stress test today. Mikal Murphy 12/07/22 Problem: Daily Care Plan Goals Goal: Care Plan Documentation 12/07/2022 0507 by Mikal Murphy RN Outcome: Ongoing Flowsheets (Taken 12/07/2022 0010) Area of Focus: Circulatory Status Goal This Shift: SBP<140 Problem: High Fall Risk: Goal: Patient will Remain Free of Falls due to Med. Side Effects 12/07/2022 0507 by Mikal Murphy RN Outcome: Ongoing 12/06/2022 214 by Mikal Murphy RN Outcome: Ongoing * Plan of Care - [...] Care - Gabriela Montesinos RN - 12/06/2022 0596 EDT Data: patient admitted 12/03 for cp. Patient diagnosed with nstemi. Patient npo for possible LHC or stress test. Cardiac MRI complete. Patient on 9 ml heparin drip doac. Patient first degree rythem. 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 Action: patient telemetry [...] with NSTEMI/CHF. Cardiac MRI performed today. Possible [facility] scheduled for December 07 Action: patient medicated [...] heparin drip doac. Patient afib rythem. 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 Action: patient telemetry [...] Education - Chandni Alcala RN - 12/04/2022 4123 EDT Heart failure nurse clinician reviewed heart failure education with pt at the bedside this morning.Please see Education tab for education provided and pt's response. Chandni Alcala RN, CHFN Heart Failure Nurse Clinician Secure Chat or pager #[phone] * Plan of Care - Teresa Silverman RN - 12/04/2022 0144 EDT Problem: Daily Care Plan Goals Goal: Care Plan Documentation Outcome: Ongoing Data: Pt transferred from [facility] for continued cardiac investigation. Dx NSTEMI. A/Ox3. Ind in the room. VSS - BP elevated at times. Tele SR with 1st deg HB, BBB, and freq PVC's. Denies CP at this time. Action: Ctm tele, VS. Response: Pt resting at this time. Plan for cardiac MRI later today. Possible NM stress test. Tentative [facility] for Wednesday. TERESA SILVERMAN RN 12/04/2022 1:44 [...] of GIB with recent admission to the [facility] in 11/10, CVA, 2DM, PD who presents asa transfer from [facility] with elevated troponin and intermittent chest pain. [...] of breath. The patient had presented to [facility], there troponins were persistently positive and adynamic. BNP elevated to 3200. She received a single dose of IV Lasix. Patient was maintained on her home Eliquis and did not receive aspirin loading while at [facility]. Last dose 12/03 pm With regards to her recent history of GI bleed the patient had initially presented to [facility] with 1 week of melanotic stools and 2 syncopal episodes. She developed acute hematemesis while there requiring significant transfusion and FFP administration, she was then transferred to [facility]. EGD performed showed duodenal erosion, scattered petechiae in the stomach and no active bleeding. She was maintained on bid PPI and did not have recurrent bleeding or instability. In this context the patient hada significantly elevated troponin to 34.7 peak which decreased to 32 on next check. She was subsequently restarted on eliquis on 11/23. Patient had stable Hgbs at [facility] and no evident bleeding. Per RAHEEM Ha's note on 11/20 [facility] cardiology clinic event monitor worn 10/13/2022-11/12/2022 which showed both AVB type I as well as periods of 2-1 blockwith HR 28-30 bpm, one pause lasting 3 seconds, AF burden <1%, and 5 nonsustained runs of ventricular tachycardia. EKG-sinus rhythm with normal axis, first-degree AV block, nonspecific intraventricular conduction delay delay, prolonged QT, LVH, PVCs Exam- Okxxbxr-bhsi-exhgnydwg, sitting up in bed, appears comfortable Neck-no [...] history of short runs of NSVT on senior living rhythm monitoring as well as 2 documented [...] Description 03/08/2024 9:30 EDT Ancillary Procedure [facility] [place] [address] 03/08/2024 10:15 EDT Ancillary Procedure [facility] [place] [address] 04/05/2024 10:00 EDT Ancillary Procedure [facility] [address] [place] [address] [id number] 04/05/2024 10:00 EDT Office Visit [facility] [address] [place] [address] [id number] Carlos Ha NP [address] [facility] [address] [place] [id number] Scheduled Orders Name Type Priority Associated Diagnoses Orde r Schedule EKG 12-LEAD ECG STAT One Time for 1 Occurrences starting 12/08/2022 until 12/08/2022 Scheduled Referrals Name Type Priority Associated Diagnoses Order Schedule AMB CONS/FOLLOW UP CARDIOLOGY Outpatient Referral Routine/Next Available NSTEMI (non-ST elevated myocardial infarction) ([facility]) Expected: 12/22/2022 (Approximate), Expires: 12/09/2023 AMB CONS/FOLLOW UP PRIMARY CARE PHYSICIAN - EXTERNAL Outpatient Referral Routine/Next Available NSTEMI (non-ST elevated myocardial infarction) ([facility]) Expected: 12/15/2022 (Approximate), Expires: 12/09/2023 PROVIDER FOLLOW-UP INSTRUCTIONS Outpatient Referral Routine Ordered: 12/08/2022 AMB CONS/FOLLOW UP CARDIAC REHABILITATION Outpatient Referral Routine/Next Available NSTEMI (non-ST elevated myocardial infarction) ([facility]) Expected: 12/16/2022 (Approximate), Expires: 12/09/2023 documented as [...] EDT) 12/26/2022 18:2 2 EDT Scan 2 Air Bag Buffer PROCEDURE/MINOR CROW GICAL ORDERABLES * ECG REPORT - SCANNED (12/24/2022 9:21 EDT) 12/24/2022 9:21 EDT Scan 2 Air Bag Buffer PROCEDURE/MINOR CROW GICAL ORDERABLES * ECG REPORT - SCANNED (12/11/2022 10:17 EDT) 12/11/2022 10:1 7 EDT Scan 2 Air Bag Buffer PROCEDURE/MINOR CROW GICAL ORDERABLES * IMPLANT RECORD - SCANNED (12/11/2022 10:16 EDT) 12/11/2022 10:1 6 EDT Scan 2 Air Bag Buffer PROCEDURE/MINOR CROW GICAL ORDERABLES * ECG REPORT - SCANNED (12/10/2022 19:54 EDT) 12/10/2022 19:5 4 EDT Scan 2 Air Bag Buffer PROCEDURE/MINOR CROW GICAL ORDERABLES * (ABNORMAL) POCT GLUCOSE, INTERFACED (12/09/2022 12:07 EDT) Glucose, POC 204(H) 70 - 100 mg/dL 12/09/2022 12:08 EDT [facility] HN LAB POC COMMENT (GLUCOSE) Test Performed by Nursing Services 12/09/2022 12:08 EDT [facility] Blood CAPILLARY BLOOD / Unknown 12/09/2022 12:07 EDT 12/09/2022 12:08 EDT Darion Tinajero MD POINT OF CARE TEST O RDERABLES [facility] [address] [place] [address] * (ABNORMAL) POCT GLUCOSE, INTERFACED (12/09/2022 7:04 EDT) Glucose, POC 227(H) 70 - 100 mg/dL 12/09/2022 7:06 EDT [facility] HN LAB POC COMMENT (GLUCOSE) Test Performed by Nursing Services 12/09/2022 7:06 EDT [facility] Blood CAPILLARY BLOOD / Unknown 12/09/2022 7:04 EDT 12/09/2022 7:06 EDT Darion Tinajero MD POINT OF CARE TEST O RDERABLES Performing Organization Address City/[facility]/ZIP Co de Phone Number [facility] [address] [place] [address] * MAGNESIUM (12/09/2022 6:32 EDT) Magnesium 2.2 1.7 - 2.8 mg/dL 12/09/2022 7:30 EDT [facility] Blood VENOUS BLOOD / Unknown Venipuncture / Unknown 12/09/2022 6:32 EDT 12/09/2022 7:00 EDT Vikash Guzman MD CHEMISTRY & BLOOD GA S ORDERABLES Performing Organization Address [facility] Co de Phone Number [facility] [address] [place] [address] * (ABNORMAL) BASIC METABOLIC PANEL (BMP) (12/09/2022 6:32 EDT) Sodium 138 136 - 145 mmol/L 12/09/2022 7:30 EDT [facility] Potassium 4.3 3.5 - 5.0 mmol/L 12/09/2022 7:30 T [facility] Chloride 107 96 - 110 mmol/L 12/09/2022 7:30 T [facility] CO2 Total 19(L) 22 - 32 mmol/L 12/09/2022 7:30 T [facility] Anion Gap 12 5 - 14 mmol/L 12/09/2022 7:30 T [facility] Glucose 211(H) 70 - 100 mg/dl 12/09/2022 7:30 [facility] Calcium 10.5 8.5 - 10.5 mg/dL 12/09/2022 7:30 T [facility] BUN 15 10 - 26 mg/dL 12/09/2022 7:30 [facility] Creatinine 0.95 0.52 - 1.04 mg/dL 12/09/2022 7:30 T [facility] eGFR 64 >60 mL/min/1.73 m2 12/09/2022 7:30 T [facility] Blood VENOUS BLOOD / Unknown Venipuncture / Unknown 12/09/2022 6:32 EDT 12/09/2022 7:00 EDT Darion Tinajero MD CHEMISTRY & BLOOD GA S ORDERABLES [facility] [address] [place] [address] * (ABNORMAL) COMPLETE BLOOD COUNT (12/09/2022 6:31 EDT) WBC 7.64 4.00 - 12.40 K/cmm 12/09/2022 6:57 [facility] RBC 3.47(L) 3.86 - 5.04 M/cmm 12/09/2022 6:57 [facility] Hemoglobin 9.1(L) 11.6 - 15.2 g/dL 12/09/2022 6:57 [facility] HCT 28.1(L) 34.9 - 44.4 % 12/09/2022 6:57 [facility] MCV 81 81 - 98 fL 12/09/2022 6:57 [facility] MCH 26.2(L) 26.7 - 33.3 pg 12/09/2022 6:57 [facility] MCHC 32.4 32.1 - 35.9 g/dL 12/09/2022 6:57 [facility] RDW-CV 15.1(H) <14.7 % 12/09/2022 6:57 [facility] RDW-SD 44.0 <50.4 fl 12/09/2022 6:57 [facility] PLT 470(H) 141 - 377 K/cmm 12/09/2022 6:57 [facility] MPV 10.3 9.5 - 12.7 fL 12/09/2022 6:57 [facility] Blood VENOUS BLOOD / Unknown Venipuncture / Unknown 12/09/2022 6:31 EDT 12/09/2022 6:51 EDT Darion Tinajero MD HEMATOLOGY & PF4 ORD ERABLES Performing Organization Address City/[facility]/ZIP Co de Phone Number [facility] [address] [place] [address] * (ABNORMAL) POCT GLUCOSE, INTERFACED (12/09/2022 4:22 EDT) Glucose, POC 260(H) 70 - 100 mg/dL 12/09/2022 4:24 EDT [facility] HN LAB POC COMMENT (GLUCOSE) Test Performed by Nursing Services 12/09/2022 4:24 EDT [facility] Blood CAPILLARY BLOOD / Unknown 12/09/2022 4:22 EDT 12/09/2022 4:24 EDT Von Walters MD POINT OF CARE TEST ORDERABLES Performing Organization Address [facility]/ZIP Co de Phone Number [facility] [address] [place] [address] * (ABNORMAL) POCT GLUCOSE, INTERFACED (12/08/2022 23:55 EDT) Glucose, POC 375(H) 70 - 100 mg/dL 12/08/2022 23:56 EDT [facility] HN LAB POC COMMENT (GLUCOSE) Test Performed by Nursing Services 12/08/2022 23:56 EDT [facility] Blood CAPILLARY BLOOD / Unknown 12/08/2022 23:55 EDT 12/08/2022 23:56 EDT Von Walters MD POINT OF CARE TEST ORDERABLES Performing Organization Address City/[facility]/ZIP Co de Phone Number [facility] [address] [place] [address] * (ABNORMAL) POCT GLUCOSE, INTERFACED (12/08/2022 21:17 EDT) Glucose, POC 390(H) 70 - 100 mg/dL 12/08/2022 21:19 EDT [facility] HN LAB POC COMMENT (GLUCOSE) Test Performed by Nursing Services 12/08/2022 21:19 EDT [facility] Blood CAPILLARY BLOOD / Unknown 12/08/2022 21:17 EDT 12/08/2022 21:19 EDT Darion Tinajero MD POINT OF CARE TEST O RDERABLES [facility] [address] [place] [address] * EKG 12-LEAD (12/08/2022 18:48 EDT) 12/08/2022 18:4 8 EDT Narrative [facility] EKG - 12/10/2022 13:41 EDT ? [facility] ? Test Date: ?2022-12-08 Pat Name: ? FORTUNATO TANNER ?Department: ?? [place] [address] ? Room: ? [id number] Gender: ? Female ? 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 [id number] : ?1950 ? Requested By: KRISTI RODRIGUEZ Order Number: [id number] ? Reading : ?? RANDY SEBASTIAN MD ? Measurements Intervals ?[place] ? Rate: ? 75 ? P: ? TX: ? 0 ?QRS: ?-21 QRSD: ? 121 ?T: ?138 QT: ? 429 ? QTc: ?482 ? Interpretive Statements SINUS RHYTHM WITH FIRST DEGREE AVB LEFT VENTRICULAR HYPERTROPHY AND ST-T CHANGE POSSIBLE SEPTAL MYOCARDIAL INFARCTION , PROBABLY OLD I reviewed the tracing and have either agreed or edited the findings in this report. Electronically Signed On 12-10-2022 13:41:55 EDT by RANYD SEBASTIAN MD. 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 Electronically Signed On 12-10-2022 13:41:55 EDT by RANDY FOSTER. Von Walters MD CARDIAC ECG O RDERABLES [facility] EKG * (ABNORMAL) POCT GLUCOSE, INTERFACED (12/08/2022 16:44 EDT) Glucose, POC 139(H) 70 - 100 mg/dL 12/08/2022 16:46 EDT [facility] HN LAB POC COMMENT (GLUCOSE) Test Performed by Nursing Services 12/08/2022 16:46 EDT [facility] Blood CAPILLARY BLOOD / Unknown 12/08/2022 16:44 EDT 12/08/2022 16:46 EDT Darion Tinajero MD POINT OF CARE TEST O RDERABLES Performing Organization Address City/[facility]/ZIP Co de Phone Number [facility] [address] [place] [address] * OCT (12/08/2022 15:47 EDT) Anatomical Region Laterality Modality Bartender Manager Narrative 12/08/2022 15:47 EDT Refer to the primary case's report for the procedure summary. Elsie Otoole CARDIAC CATH ORDERAB LES * LEFT HEART CATH, PERCUTANEOUS CORONARY INTERVENTION (12/08/2022 15:47 EDT) Anatomical Region Laterality Modality Bartender Manager 12/08/2022 14:1 6 EDT Narrative 12/12/2022 10:05 EDT [address] [place] [id number] Catheterization Laboratory Study Patient: Fortunato Hart M ? Study Date: ?12/08/2022 ?Accession #: ? [id number] : ? 1950 Referring: Elsie Otoole Diagnostic Attending: ??Edgardo Ha Interventional Attending: ?? Edgardo Ha ATTESTATION: I, Dr. Eddie Duran was the initial author of this report. [...] Chest pain. Dyspnea. Nonsustained ventricular ?? tachycardia. Ynp-QC-zzgwzwjl myocardial infarction. Aortic stenosis. ?? Cerebrovascular disease. [...] HISTORY: Chest pain. ??Dyspnea. ??Nonsustained ventricular tachycardia. Hmt-VI-eeskfdmr myocardial infarction. ??Aortic stenosis. Cerebrovascular disease. ??PMH: [...] 4. Right radial artery access. A 6FR/.021 [place] [employer] Slender sheath ?? was advanced into [...] Note Edgardo Ha MD - 12/12/2022 Cardiology [address] [place] [address] Catheterization Laboratory Study Patient: Fortunato Hart M [...] indications: Chest pain. Dyspnea. Nonsustained ventricular tachycardia. Lry-QF-ybazgnak myocardial infarction. Aortic stenosis. Cerebrovascular disease. 2. [...] HISTORY: Chest pain. Dyspnea. Nonsustained ventricular tachycardia. Ndb-YJ-rwppyezx myocardial infarction. Aortic stenosis. Cerebrovascular disease. PMH: [...] 4. Right radial artery access. A 6FR/.021 [place] [employer] Slender sheath was advanced into the [...] (12/08/2022 13:01 EDT) 12/08/2022 13:0 1 EDT Narrative [facility] EKG - 12/26/2022 14:49 EDT ? [facility] ? Test Date: ?2022-12-08 Pat Name: ? FORTUNATO TANNER ?Department: ?? [facility] [address] ? Room: ? CL Gender: ? Female ? 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 [id number] : ?1950 ? Requested By: DELL LOPEZ [facility] Order Number: [id number] ? Reading MD: ?? REILLY DUQUE MD PhD ? Measurements Intervals ?[place] ? Rate: ? 49 ? P: ? TX: ? 0 ?QRS: ?84 QRSD: ? 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 Eddie Damon CARDIAC ECG ORDERAB LES [facility] EKG * (ABNORMAL) POCT GLUCOSE, INTERFACED (12/08/2022 12:21 EDT) Glucose, POC 132(H) 70 - 100 mg/dL 12/08/2022 12:23 EDT [facility] HN LAB POC COMMENT (GLUCOSE) Test Performed by Nursing Services 12/08/2022 12:23 EDT [facility] Blood CAPILLARY BLOOD / Unknown 12/08/2022 12:21 EDT 12/08/2022 12:22 EDT Darion Tinajero MD POINT OF CARE TEST O RDERABLES Performing Organization Address [facility] Co de Phone Number [facility] [address] [place] [address] * ECG REPORT - SCANNED (12/08/2022 12:18 EDT) 12/08/2022 12:1 8 EDT Scan 2 Air Bag Buffer PROCEDURE/MINOR CROW GICAL ORDERABLES * HEPARIN LEVEL - UNFRACTIONATED HEPARIN (12/08/2022 6:02 EDT) Heparin Level-UFH 0.56 Therapeutic Range: 0.30 - 0.70 IU/mL 12/08/2022 6:41 EDT [facility] Comment:Unfractionated hepar in therapeutic range [...] & PF4 ORD ERABLES Performing Organization Address City/[facility]/ZIP Co de Phone Number [facility] [address] [place] [address] * MAGNESIUM (12/08/2022 6:02 EDT) Pathologist [facility] Magnesium 2.0 1.7 - 2.8 mg/dL 12/08/2022 7:10 [facility] Blood VENOUS BLOOD / Unknown Venipuncture / Unknown 12/08/2022 6:02 EDT 12/08/2022 6:40 EDT Vikash Guzman MD CHEMISTRY & BLOOD GA S ORDERABLES [facility] [address] [place] [address] * (ABNORMAL) BASIC METABOLIC PANEL (BMP) (12/08/2022 6:02 EDT) Pathologist [facility] Sodium 139 136 - 145 mmol/L 12/08/2022 7:10 [facility] Potassium 4.2 3.5 - 5.0 mmol/L 12/08/2022 7:10 [facility] Chloride 107 96 - 110 mmol/L 12/08/2022 7:10 [facility] CO2 Total 20(L) 22 - 32 mmol/L 12/08/2022 7:10 [facility] Anion Gap 12 5 - 14 mmol/L 12/08/2022 7:10 [facility] Glucose 188(H) 70 - 100 mg/dl 12/08/2022 7:10 [facility] Calcium 10.4 8.5 - 10.5 mg/dL 12/08/2022 7:10 [facility] BUN 14 10 - 26 mg/dL 12/08/2022 7:10 [facility] Creatinine 0.96 0.52 - 1.04 mg/dL 12/08/2022 7:10 [facility] eGFR 64 >60 mL/min/1.73 m2 12/08/2022 7:10 [facility] Blood VENOUS BLOOD / Unknown Venipuncture / Unknown 12/08/2022 6:02 EDT 12/08/2022 6:40 EDT Darion Tinajero MD CHEMISTRY & BLOOD GA S ORDERABLES [facility] [address] [place] [address] * (ABNORMAL) COMPLETE BLOOD COUNT (12/08/2022 6:02 EDT) WBC 6.56 4.00 - 12.40 K/cmm 12/08/2022 6:31 EDT [facility] RBC 3.80(L) 3.86 - 5.04 M/cmm 12/08/2022 6:31 [facility] Hemoglobin 9.9(L) 11.6 - 15.2 g/dL 12/08/2022 6:31 [facility] HCT 31.4(L) 34.9 - 44.4 % 12/08/2022 6:31 [facility] MCV 83 81 - 98 fL 12/08/2022 6:31 [facility] MCH 26.1(L) 26.7 - 33.3 pg 12/08/2022 6:31 [facility] MCHC 31.5(L) 32.1 - 35.9 g/dL 12/08/2022 6:31 [facility] RDW-CV 15.3(H) <14.7 % 12/08/2022 6:31 [facility] RDW-SD 45.6 <50.4 fl 12/08/2022 6:31 [facility] PLT 431(H) 141 - 377 K/cmm 12/08/2022 6:31 [facility] MPV 10.4 9.5 - 12.7 fL 12/08/2022 6:31 [facility] Blood VENOUS BLOOD / Unknown Venipuncture / Unknown 12/08/2022 6:02 EDT 12/08/2022 6:19 EDT Darion Tinajero MD HEMATOLOGY & PF4 ORD ERABLES [facility] [address] [place] [address] * (ABNORMAL) POCT GLUCOSE, INTERFACED (12/08/2022 6:00 EDT) Glucose, POC 193(H) 70 - 100 mg/dL 12/08/2022 6:01 EDT [facility] HN LAB POC COMMENT (GLUCOSE) Test Performed by Nursing Services 12/08/2022 6:01 EDT [facility] Blood CAPILLARY BLOOD / Unknown 12/08/2022 6:00 EDT 12/08/2022 6:01 EDT Darion Tinajero MD POINT OF CARE TEST O RDERABLES Performing Organization Address City/[facility]/ZIP Co de Phone Number [facility] [address] [place] [address] * (ABNORMAL) POCT GLUCOSE, INTERFACED (12/08/2022 0:26 EDT) Glucose, POC 173(H) 70 - 100 mg/dL 12/08/2022 0:27 EDT [facility] HN LAB POC COMMENT (GLUCOSE) Test Performed by Nursing Services 12/08/2022 0:27 EDT [facility] Blood CAPILLARY BLOOD / Unknown 12/08/2022 0:26 EDT 12/08/2022 0:27 EDT Darion Tinajero MD POINT OF CARE TEST O RDERABLES [facility] [address] [place] [address] * (ABNORMAL) POCT GLUCOSE, INTERFACED (12/07/2022 21:11 EDT) Glucose, POC 152(H) 70 - 100 mg/dL 12/07/2022 21:12 EDT [facility] HN LAB POC COMMENT (GLUCOSE) Test Performed by Nursing Services 12/07/2022 21:12 EDT [facility] Blood CAPILLARY BLOOD / Unknown 12/07/2022 21:11 EDT 12/07/2022 21:12 EDT Von Walters MD POINT OF CARE TEST ORDERABLES Performing Organization Address [facility]/ZIP Co de Phone Number [facility] [address] [place] [address] * (ABNORMAL) POCT GLUCOSE, INTERFACED (12/07/2022 16:32 EDT) Glucose, POC 123(H) 70 - 100 mg/dL 12/07/2022 16:33 EDT [facility] HN LAB POC COMMENT (GLUCOSE) Test Performed by Nursing Services 12/07/2022 16:33 EDT [facility] Blood CAPILLARY BLOOD / Unknown 12/07/2022 16:32 EDT 12/07/2022 16:33 EDT Darion Tinajero MD POINT OF CARE TEST O RDERABLES Performing Organization Address City/[facility]/ZIP Co de Phone Number [facility] [address] [place] [address] * NM CARD PET PHARM MULT STUDIES [...] Disease presenting as a direct transfer from [facility] fpr NSTEMI. Today for NM PET, without [...] CT finding(s): small pericardial effusion. Myocardial Flow [place] The myocardial flow reserve was 1.89 for [...] using independent software and evaluated by the radiologist/electronics installer. Images acquired at rest and post stress [...] (ABNORMAL) POCT GLUCOSE, INTERFACED (12/07/2022 13:19 EDT) [facility] Glucose, POC 140(H) 70 - 100 mg/dL 12/07/2022 13:21 EDT [facility] HN LAB POC COMMENT (GLUCOSE) Test Performed by Nursing Services 12/07/2022 13:21 EDT [facility] Blood CAPILLARY BLOOD / Unknown 12/07/2022 13:19 EDT 12/07/2022 13:21 EDT Darion Tinajero MD POINT OF CARE TEST O RDERABLES [facility] [address] [place] [address] * HEPARIN LEVEL - UNFRACTIONATED HEPARIN (12/07/2022 6:41 EDT) [facility] Heparin Level-UFH 0.65 Therapeutic Range: 0.30 - 0.70 IU/mL 12/07/2022 7:10 EDT [facility] Comment:Unfractionated hepar in therapeutic range [...] & PF4 ORD ERABLES Performing Organization Address City/[facility] Co de Phone Number [facility] [address] [place] [address] * MAGNESIUM (12/07/2022 6:41 EDT) Magnesium 1.9 1.7 - 2.8 mg/dL 12/07/2022 7:24 EDT [facility] Blood VENOUS BLOOD / Unknown Venipuncture / Unknown 12/07/2022 6:41 EDT 12/07/2022 6:55 EDT Vikash Guzman MD CHEMISTRY & BLOOD GA S ORDERABLES Performing Organization Address [facility] Co de Phone Number [facility] [address] [place] [address] * (ABNORMAL) BASIC METABOLIC PANEL (BMP) (12/07/2022 6:41 EDT) Sodium 137 136 - 145 mmol/L 12/07/2022 7:24 EDT [facility] Potassium 4.0 3.5 - 5.0 mmol/L 12/07/2022 7:24 T [facility] Chloride 109 96 - 110 mmol/L 12/07/2022 7:24 T [facility] CO2 Total 20(L) 22 - 32 mmol/L 12/07/2022 7:24 T [facility] Anion Gap 8 5 - 14 mmol/L 12/07/2022 7:24 [facility] Glucose 167(H) 70 - 100 mg/dl 12/07/2022 7:24 T [facility] Calcium 10.1 8.5 - 10.5 mg/dL 12/07/2022 7:24 T [facility] BUN 14 10 - 26 mg/dL 12/07/2022 7:24 T [facility] Creatinine 0.94 0.52 - 1.04 mg/dL 12/07/2022 7:24 EDT [facility] eGFR 65 >60 mL/min/1.73 m2 12/07/2022 7:24 [facility] Blood VENOUS BLOOD / Unknown Venipuncture / Unknown 12/07/2022 6:41 EDT 12/07/2022 6:55 EDT Darion Tinajero MD CHEMISTRY & BLOOD GA S ORDERABLES [facility] [address] [place] [address] * (ABNORMAL) COMPLETE BLOOD COUNT (12/07/2022 6:41 EDT) WBC 7.35 4.00 - 12.40 K/cmm 12/07/2022 7:03 [facility] RBC 3.43(L) 3.86 - 5.04 M/cmm 12/07/2022 7:03 [facility] Hemoglobin 9.1(L) 11.6 - 15.2 g/dL 12/07/2022 7:03 [facility] HCT 28.4(L) 34.9 - 44.4 % 12/07/2022 7:03 [facility] MCV 83 81 - 98 fL 12/07/2022 7:03 [facility] MCH 26.5(L) 26.7 - 33.3 pg 12/07/2022 7:03 [facility] MCHC 32.0(L) 32.1 - 35.9 g/dL 12/07/2022 7:03 [facility] RDW-CV 15.1(H) <14.7 % 12/07/2022 7:03 [facility] RDW-SD 44.7 <50.4 fl 12/07/2022 7:03 [facility] PLT 401(H) 141 - 377 K/cmm 12/07/2022 7:03 [facility] MPV 10.0 9.5 - 12.7 fL 12/07/2022 7:03 EDT [facility] Blood VENOUS BLOOD / Unknown Venipuncture / Unknown 12/07/2022 6:41 EDT 12/07/2022 6:54 EDT Darion Tinajero MD HEMATOLOGY & PF4 ORD ERABLES Performing Organization Address City/[facility]/ZIP Co de Phone Number [facility] [address] [place] [address] * (ABNORMAL) POCT GLUCOSE, INTERFACED (12/07/2022 6:09 EDT) Glucose, POC 167(H) 70 - 100 mg/dL 12/07/2022 6:12 EDT [facility] HN LAB POC COMMENT (GLUCOSE) Test Performed by Nursing Services 12/07/2022 6:12 EDT [facility] Blood CAPILLARY BLOOD / Unknown 12/07/2022 6:09 EDT 12/07/2022 6:12 EDT Darion Tinajero MD POINT OF CARE TEST O RDERALASHELL Performing Organization Address [facility] Co de Phone Number [facility] [address] [place] [address] * (ABNORMAL) POCT GLUCOSE, INTERFACED (12/06/2022 21:14 EDT) Glucose, POC 183(H) 70 - 100 mg/dL 12/06/2022 21:15 EDT [facility] HN LAB POC COMMENT (GLUCOSE) Test Performed by Nursing Services 12/06/2022 21:15 EDT [facility] Blood CAPILLARY BLOOD / Unknown 12/06/2022 21:14 EDT 12/06/2022 21:15 EDT Darion Tinajero MD POINT OF CARE TEST O RDERABLES Performing Organization Address City/[facility]/ZIP Co de Phone Number [facility] [address] [place] [address] * (ABNORMAL) POCT GLUCOSE, INTERFACED (12/06/2022 16:36 EDT) Glucose, POC 172(H) 70 - 100 mg/dL 12/06/2022 16:37 EDT [facility] HN LAB POC COMMENT (GLUCOSE) Test Performed by Nursing Services 12/06/2022 16:37 EDT [facility] Blood CAPILLARY BLOOD / Unknown 12/06/2022 16:36 EDT 12/06/2022 16:37 EDT Darion Tinajero MD POINT OF CARE TEST O CHRISERALASHELL [facility] [address] [place] [address] * (ABNORMAL) POCT GLUCOSE, INTERFACED (12/06/2022 13:26 EDT) Glucose, POC 163(H) 70 - 100 mg/dL 12/06/2022 13:29 EDT [facility] HN LAB POC COMMENT (GLUCOSE) Test Performed by Nursing Services 12/06/2022 13:29 EDT [facility] Blood CAPILLARY BLOOD / Unknown 12/06/2022 13:26 EDT 12/06/2022 13:29 EDT Randy Sebastian MD POINT OF CARE TEST O HERNÁN [facility] [address] [place] [address] * (ABNORMAL) POCT GLUCOSE, INTERFACED (12/06/2022 12:17 EDT) Glucose, POC 160(H) 70 - 100 mg/dL 12/06/2022 12:19 EDT [facility] HN LAB POC COMMENT (GLUCOSE) Test Performed by Nursing Services 12/06/2022 12:19 EDT [facility] Blood CAPILLARY BLOOD / Unknown 12/06/2022 12:17 EDT 12/06/2022 12:18 EDT Darion Tinajero MD POINT OF CARE TEST O RDERABLES Performing Organization Address City/[facility]/ZIP Co de Phone Number [facility] [address] [place] [address] * HEPARIN LEVEL - UNFRACTIONATED HEPARIN (12/06/2022 12:09 EDT) Heparin Level-UFH 0.70 Therapeutic Range: 0.30 - 0.70 IU/mL 12/06/2022 12:37 EDT [facility] Comment:Unfractionated hepar in therapeutic range [...] Unknown 12/06/2022 12:09 EDT 12/06/2022 12:18 EDT Radnolph Hanks MD HEMATOLOGY & PF4 ORD ERABLES Performing Organization Address [facility] Co de Phone Number [facility] [address] [place] [address] * (ABNORMAL) POCT GLUCOSE, INTERFACED (12/06/2022 9:16 EDT) Glucose, POC 180(H) 70 - 100 mg/dL 12/06/2022 9:17 EDT [facility] HN LAB POC COMMENT (GLUCOSE) Test Performed by Nursing Services 12/06/2022 9:17 EDT [facility] Blood CAPILLARY BLOOD / Unknown 12/06/2022 9:16 EDT 12/06/2022 9:17 EDT Darion Tinajero MD POINT OF CARE TEST O RDERABLES Performing Organization Address City/[facility]/ZIP Co de Phone Number [facility] [address] [place] [address] * (ABNORMAL) POCT GLUCOSE, INTERFACED (12/06/2022 8:12 EDT) Pathologist [facility] Glucose, POC 179(H) 70 - 100 mg/dL 12/06/2022 8:19 EDT [facility] HN LAB POC COMMENT (GLUCOSE) Test Performed by Nursing Services 12/06/2022 8:19 EDT [facility] Blood CAPILLARY BLOOD / Unknown 12/06/2022 8:12 EDT 12/06/2022 8:19 EDT Darion Tinajero MD POINT OF CARE TEST O RDERABLES [facility] [address] [place] [address] * MAGNESIUM (12/06/2022 6:28 EDT) [facility] Magnesium 2.0 1.7 - 2.8 mg/dL 12/06/2022 7:51 EDT [facility] Blood VENOUS BLOOD / Unknown Venipuncture / Unknown 12/06/2022 6:28 EDT 12/06/2022 7:18 EDT Vikash Guzman MD CHEMISTRY & BLOOD GA S ORDERABLES [facility] [address] [place] [address] * (ABNORMAL) BASIC METABOLIC PANEL (BMP) (12/06/2022 6:28 EDT) [facility] Sodium 139 136 - 145 mmol/L 12/06/2022 7:51 EDT [facility] Potassium 3.8 3.5 - 5.0 mmol/L 12/06/2022 7:51 EDT [facility] Chloride 108 96 - 110 mmol/L 12/06/2022 7:51 EDT [facility] CO2 Total 20(L) 22 - 32 mmol/L 12/06/2022 7:51 [facility] Anion Gap 11 5 - 14 mmol/L 12/06/2022 7:51 [facility] Glucose 177(H) 70 - 100 mg/dl 12/06/2022 7:51 [facility] Calcium 9.9 8.5 - 10.5 mg/dL 12/06/2022 7:51 [facility] BUN 15 10 - 26 mg/dL 12/06/2022 7:51 [facility] Creatinine 0.89 0.52 - 1.04 mg/dL 12/06/2022 7:51 [facility] eGFR 70 >60 mL/min/1.73 m2 12/06/2022 7:51 [facility] Blood VENOUS BLOOD / Unknown Venipuncture / Unknown 12/06/2022 6:28 EDT 12/06/2022 7:18 EDT Darion Tinajero MD CHEMISTRY & BLOOD GA S ORDERABLES [facility] [address] [place] [address] * (ABNORMAL) COMPLETE BLOOD COUNT (12/06/2022 6:28 EDT) WBC 7.20 4.00 - 12.40 K/cmm 12/06/2022 7:33 [facility] RBC 3.58(L) 3.86 - 5.04 M/cmm 12/06/2022 7:33 [facility] Hemoglobin 9.4(L) 11.6 - 15.2 g/dL 12/06/2022 7:33 [facility] HCT 29.0(L) 34.9 - 44.4 % 12/06/2022 7:33 [facility] MCV 81 81 - 98 fL 12/06/2022 7:33 [facility] MCH 26.3(L) 26.7 - 33.3 pg 12/06/2022 7:33 [facility] MCHC 32.4 32.1 - 35.9 g/dL 12/06/2022 7:33 EDT [facility] RDW-CV 15.0(H) <14.7 % 12/06/2022 7:33 EDT [facility] RDW-SD 43.2 <50.4 fl 12/06/2022 7:33 EDT [facility] PLT 297 141 - 377 K/cmm 12/06/2022 7:33 EDT [facility] MPV 12.2 9.5 - 12.7 fL 12/06/2022 7:33 EDT [facility] Blood VENOUS BLOOD / Unknown Venipuncture / Unknown 12/06/2022 6:28 EDT 12/06/2022 7:17 EDT Darion Tinajero MD HEMATOLOGY & PF4 ORD ERABLES Performing Organization Address [facility] Co de Phone Number [facility] [address] [place] [address] * HEPARIN LEVEL - UNFRACTIONATED HEPARIN (12/06/2022 0:07 EDT) Heparin Level-UFH 0.62 Therapeutic Range: 0.30 - 0.70 IU/mL 12/06/2022 0:34 EDT [facility] Comment:Unfractionated hepar in therapeutic range [...] & PF4 ORD ERABLES Performing Organization Address City/[facility]/ZIP Co de Phone Number [facility] [address] [place] [address] * (ABNORMAL) POCT GLUCOSE, INTERFACED (12/05/2022 21:08 EDT) Glucose, POC 288(H) 70 - 100 mg/dL 12/05/2022 21:10 EDT [facility] HN LAB POC COMMENT (GLUCOSE) Test Performed by Nursing Services 12/05/2022 21:10 EDT [facility] Blood CAPILLARY BLOOD / Unknown 12/05/2022 21:08 EDT 12/05/2022 21:10 EDT Darion Tinajero MD POINT OF CARE TEST O HERNÁN [facility] [address] [place] [address] * (ABNORMAL) POCT GLUCOSE, INTERFACED (12/05/2022 16:28 EDT) Glucose, POC 107(H) 70 - 100 mg/dL 12/05/2022 16:29 EDT [facility] HN LAB POC COMMENT (GLUCOSE) Test Performed by Nursing Services 12/05/2022 16:29 EDT [facility] Blood CAPILLARY BLOOD / Unknown 12/05/2022 16:28 EDT 12/05/2022 16:29 EDT Darion Tinajero MD POINT OF CARE TEST O HERNÁN Performing Organization Address City/[facility]/ZIP Co de Phone Number [facility] [address] [place] [address] * HEPARIN LEVEL - UNFRACTIONATED HEPARIN (12/05/2022 12:18 EDT) Heparin Level-UFH 0.71 Therapeutic Range: 0.30 - 0.70 IU/mL 12/05/2022 12:41 EDT [facility] Comment:Unfractionated hepar in therapeutic range [...] Guzman MD HEMATOLOGY & PF4 ORD ERABLES [facility] [address] [place] [address] * (ABNORMAL) BASIC METABOLIC PANEL (BMP) (12/05/2022 12:18 EDT) Sodium 140 136 - 145 mmol/L 12/05/2022 13:12 [facility] Potassium 3.9 3.5 - 5.0 mmol/L 12/05/2022 13:12 [facility] Chloride 104 96 - 110 mmol/L 12/05/2022 13:12 [facility] CO2 Total 25 22 - 32 mmol/L 12/05/2022 13:12 [facility] Anion Gap 11 5 - 14 mmol/L 12/05/2022 13:12 [facility] Glucose 173(H) 70 - 100 mg/dl 12/05/2022 13:12 [facility] Calcium 10.5 8.5 - 10.5 mg/dL 12/05/2022 13:12 [facility] BUN 15 10 - 26 mg/dL 12/05/2022 13:12 [facility] Creatinine 0.89 0.52 - 1.04 mg/dL 12/05/2022 13:12 [facility] eGFR 70 >60 mL/min/1.73 m2 12/05/2022 13:12 [facility] Blood VENOUS BLOOD / Unknown Venipuncture / Unknown 12/05/2022 12:18 EDT 12/05/2022 12:25 EDT Darion Tinajero MD CHEMISTRY & BLOOD GA S ORDERABLES [facility] [address] [place] [address] * (ABNORMAL) COMPLETE BLOOD COUNT (12/05/2022 12:18 EDT) WBC 7.00 4.00 - 12.40 K/cmm 12/05/2022 12:32 EDT [facility] RBC 3.82(L) 3.86 - 5.04 M/cmm 12/05/2022 12:32 EDT [facility] Hemoglobin 10.2(L) 11.6 - 15.2 g/dL 12/05/2022 12:32 T [facility] HCT 31.9(L) 34.9 - 44.4 % 12/05/2022 12:32 [facility] MCV 84 81 - 98 fL 12/05/2022 12:32 EDT [facility] MCH 26.7 26.7 - 33.3 pg 12/05/2022 12:32 [facility] MCHC 32.0(L) 32.1 - 35.9 g/dL 12/05/2022 12:32 [facility] RDW-CV 14.9(H) <14.7 % 12/05/2022 12:32 [facility] RDW-SD 44.8 <50.4 fl 12/05/2022 12:32 EDT [facility] PLT 467(H) 141 - 377 K/cmm 12/05/2022 12:32 [facility] MPV 10.1 9.5 - 12.7 fL 12/05/2022 12:32 [facility] Blood VENOUS BLOOD / Unknown Venipuncture / Unknown 12/05/2022 12:18 EDT 12/05/2022 12:25 EDT Darion Tinajero MD HEMATOLOGY & PF4 ORD ERABLES [facility] [address] [place] [address] * (ABNORMAL) POCT GLUCOSE, INTERFACED (12/05/2022 11:34 EDT) Glucose, POC 198(H) 70 - 100 mg/dL 12/05/2022 11:35 EDT [facility] HN LAB POC COMMENT (GLUCOSE) Test Performed by Nursing Services 12/05/2022 11:35 EDT [facility] Blood CAPILLARY BLOOD / Unknown 12/05/2022 11:34 EDT 12/05/2022 11:35 EDT Darion Tinajero MD POINT OF CARE TEST O RDERABLES Performing Organization Address [facility] Co de Phone Number [facility] [address] [place] [address] * HEPARIN LEVEL - UNFRACTIONATED HEPARIN (12/05/2022 2:48 EDT) [facility] Heparin Level-UFH 0.89 Therapeutic Range: 0.30 - 0.70 IU/mL 12/05/2022 3:05 EDT [facility] Comment:Unfractionated hepar in therapeutic range [...] & PF4 ORD ERABLES Performing Organization Address City/[facility]/ZIP Co de Phone Number [facility] [address] [place] [address] * (ABNORMAL) POCT GLUCOSE, INTERFACED (12/05/2022 0:07 EDT) Glucose, POC 187(H) 70 - 100 mg/dL 12/05/2022 0:08 EDT [facility] HN LAB POC COMMENT (GLUCOSE) Test Performed by Nursing Services 12/05/2022 0:08 EDT [facility] Blood CAPILLARY BLOOD / Unknown 12/05/2022 0:07 EDT 12/05/2022 0:08 EDT Randy Sebastian MD POINT OF CARE TEST O RDERALASHELL Performing Organization Address [facility] Co de Phone Number [facility] [address] [place] [address] * (ABNORMAL) POCT GLUCOSE, INTERFACED (12/04/2022 20:36 EDT) Glucose, POC 267(H) 70 - 100 mg/dL 12/04/2022 20:37 EDT [facility] HN LAB POC COMMENT (GLUCOSE) Test Performed by Nursing Services 12/04/2022 20:37 EDT [facility] Blood CAPILLARY BLOOD / Unknown 12/04/2022 20:36 EDT 12/04/2022 20:36 EDT Randy Sebastian MD POINT OF CARE TEST O HERNÁN Performing Organization Address [facility] Co de Phone Number [facility] [address] [place] [address] * (ABNORMAL) POCT GLUCOSE, INTERFACED (12/04/2022 19:41 EDT) Glucose, POC 190(H) 70 - 100 mg/dL 12/04/2022 19:42 EDT [facility] HN LAB POC COMMENT (GLUCOSE) Test Performed by Nursing Services 12/04/2022 19:42 EDT [facility] Blood CAPILLARY BLOOD / Unknown 12/04/2022 19:41 EDT 12/04/2022 19:42 EDT Darion Tinajero MD POINT OF CARE TEST O RDERABLES Performing Organization Address City/[facility]/ZIP Co de Phone Number [facility] [address] [place] [address] * (ABNORMAL) POCT GLUCOSE, INTERFACED (12/04/2022 18:03 EDT) Glucose, POC 129(H) 70 - 100 mg/dL 12/04/2022 18:04 EDT [facility] HN LAB POC COMMENT (GLUCOSE) Test Performed by Nursing Services 12/04/2022 18:04 EDT [facility] Blood CAPILLARY BLOOD / Unknown 12/04/2022 18:03 EDT 12/04/2022 18:04 EDT Darion Tinajero MD POINT OF CARE TEST O RDERABLES Performing Organization Address [facility] Co de Phone Number [facility] [address] [place] [address] * MR CARDIAC W WO CONTRAST W [...] gradient is 14 mmHg. Darion Tinajero MD IMG MRI ORDERABLES * (ABNORMAL) HEPARIN LEVEL - UNFRACTIONATED HEPARIN (12/04/2022 12:40 EDT) Pathologist [facility] Heparin Level-UFH 1.84(HH) Therapeutic Range: 0.30 - 0.70 IU/mL 12/04/2022 13:06 EDT [facility] Comment: Recent or concurrent use [...] Sebastian MD HEMATOLOGY & PF4 ORD ERABLES [facility] [address] [place] [address] * (ABNORMAL) POCT GLUCOSE, INTERFACED (12/04/2022 12:26 EDT) Pathologist [facility] Glucose, POC 164(H) 70 - 100 mg/dL 12/04/2022 12:28 EDT [facility] HN LAB POC COMMENT (GLUCOSE) Test Performed by Nursing Services 12/04/2022 12:28 EDT [facility] Blood CAPILLARY BLOOD / Unknown 12/04/2022 12:26 EDT 12/04/2022 12:28 EDT Darion Tinajero MD POINT OF CARE TEST O RDERABLES [facility] [address] [place] [address] * (ABNORMAL) POCT GLUCOSE, INTERFACED (12/04/2022 7:55 EDT) Glucose, POC 189(H) 70 - 100 mg/dL 12/04/2022 7:57 EDT [facility] HN LAB POC COMMENT (GLUCOSE) Test Performed by Nursing Services 12/04/2022 7:57 EDT [facility] [facility] Blood CAPILLARY BLOOD / Unknown 12/04/2022 7:55 EDT 12/04/2022 7:57 EDT Darion Tinajero MD POINT OF CARE TEST O RDERABLES [facility] [address] [place] [address] * (ABNORMAL) BASIC METABOLIC PANEL (BMP) (12/04/2022 7:26 EDT) [facility] Sodium 139 136 - 145 mmol/L 12/04/2022 8:31 [facility] Potassium 3.9 3.5 - 5.0 mmol/L 12/04/2022 8:31 [facility] Chloride 104 96 - 110 mmol/L 12/04/2022 8:31 [facility] CO2 Total 21(L) 22 - 32 mmol/L 12/04/2022 8:31 [facility] Anion Gap 14 5 - 14 mmol/L 12/04/2022 8:31 [facility] Glucose 229(H) 70 - 100 mg/dl 12/04/2022 8:31 [facility] Calcium 10.3 8.5 - 10.5 mg/dL 12/04/2022 8:31 [facility] BUN 18 10 - 26 mg/dL 12/04/2022 8:31 [facility] Creatinine 0.90 0.52 - 1.04 mg/dL 12/04/2022 8:31 [facility] eGFR 69 >60 mL/min/1.73 m2 12/04/2022 8:31 [facility] Blood VENOUS BLOOD / Unknown Venipuncture / Unknown 12/04/2022 7:26 EDT 12/04/2022 8:03 EDT Darion Tinajero MD CHEMISTRY & BLOOD GA S ORDERABLES [facility] [address] [place] [address] * (ABNORMAL) COMPLETE BLOOD COUNT (12/04/2022 7:26 EDT) WBC 8.02 4.00 - 12.40 K/cmm 12/04/2022 8:16 [facility] RBC 3.67(L) 3.86 - 5.04 M/cmm 12/04/2022 8:16 [facility] Hemoglobin 9.8(L) 11.6 - 15.2 g/dL 12/04/2022 8:16 [facility] HCT 30.4(L) 34.9 - 44.4 % 12/04/2022 8:16 [facility] MCV 83 81 - 98 fL 12/04/2022 8:16 [facility] MCH 26.7 26.7 - 33.3 pg 12/04/2022 8:16 [facility] MCHC 32.2 32.1 - 35.9 g/dL 12/04/2022 8:16 [facility] RDW-CV 14.9(H) <14.7 % 12/04/2022 8:16 [facility] RDW-SD 44.5 <50.4 fl 12/04/2022 8:16 [facility] PLT 455(H) 141 - 377 K/cmm 12/04/2022 8:16 [facility] MPV 10.7 9.5 - 12.7 fL 12/04/2022 8:16 [facility] Blood VENOUS BLOOD / Unknown Venipuncture / Unknown 12/04/2022 7:26 EDT 12/04/2022 8:01 EDT Darion Tinajero MD HEMATOLOGY & PF4 ORD ERABLES [facility] [address] [place] [address] * (ABNORMAL) VITAMIN D (25,OH) (12/04/2022 7:26 EDT) 25OH Vitamin D Tot 21(L) 30 - 100 ng/mL 12/04/2022 12:18 EDT [facility] Comment: Vitamin D 25,OH Interpretive Ranges: Deficiency: ??<10.0 ng/mL Insufficiency: ??10.0 - 30.0 ng/mL Sufficiency: ??30.0 - 100.0 ng/mL Toxicity: ??>100.0 ng/mL Blood VENOUS BLOOD / Unknown Venipuncture / Unknown 12/04/2022 7:26 EDT 12/04/2022 8:03 EDT Darion Tinajero MD CHEMISTRY & BLOOD GA S ORDERABLES Performing Organization Address [facility] Co de Phone Number [facility] [address] [place] [address] * (ABNORMAL) LIPID PROFILE (INCLUDES CHOLESTEROL, TRIGLYCERIDES, HDL, LDL) (12/03/2022 23:53 EDT) Cholesterol 107 <200 mg/dL 12/04/2022 0:16 EDT [facility] Comment:Note that therapeuti c goals will differ between patients based on cardiac risk factors and current medical therapy. HDL 40(L) >=50 mg/dL 12/04/2022 0:16 EDT [facility] Comment:Note that therapeuti c goals will differ between patients based on cardiac risk factors and current medical therapy. LDL, Calculated 29 <160 mg/dL 0:16 EDT [facility] Comment:Note that therapeuti c goals will differ between patients based on cardiac risk factors and current medical therapy. Triglyceride 188(H) <=150 mg/dL 12/04/2022 0:16 EDT [facility] Comment:Note that therapeuti c goals will differ between patients based on cardiac risk factors and current medical therapy. Chol/HDL Ratio 2.7 See Note 12/04/2022 0:16 EDT [facility] Comment:No reference range h as been established for CHOL/HDL ratio. Non HDL Cholesterol 67 <160 mg/dL 12/04/2022 0:16 EDT [facility] Comment:Note that therapeuti c goals will differ between patients based on cardiac risk factors and current medical therapy. Blood VENOUS BLOOD / Unknown Venipuncture / Unknown 12/03/2022 23:53 EDT 12/04/2022 0:00 EDT Darion Tinajero MD CHEMISTRY & BLOOD GA S ORDERABLES [facility] [address] [place] [address] * (ABNORMAL) HEPARIN LEVEL - UNFRACTIONATED HEPARIN (12/03/2022 23:53 EDT) Heparin Level-UFH 1.52(HH) Therapeutic Range: 0.30 - 0.70 IU/mL 12/04/2022 0:24 EDT [facility] Comment: Recent or concurrent use [...] & PF4 ORD ERABLES Performing Organization Address [facility]/ZIP Co de Phone Number [facility] [address] [place] [address] * (ABNORMAL) TROPONIN I (12/03/2022 23:53 EDT) Troponin I (ng/mL) 0.105(H) <0.034 ng/mL 12/04/2022 0:32 EDT [facility] Blood VENOUS BLOOD / Unknown Venipuncture / Unknown 12/03/2022 23:53 EDT 12/04/2022 0:00 EDT Narrative [facility] - 12/04/2022 0:32 EDT The results of this assay can be falsely lowered due to the consumption of Biotin. Darion Tinajero MD CHEMISTRY & BLOOD GA S ORDERABLES Performing Organization Address [facility] Co de Phone Number [facility] [address] [place] [address] * MAGNESIUM (12/03/2022 23:11 EDT) Pathologist [facility] Magnesium 1.9 1.7 - 2.8 mg/dL 12/03/2022 23:42 EDT [facility] Comment:Moderate hemolysis i dentified, interpret with caution as results may be affected due to hemolysis. Blood VENOUS BLOOD / Unknown Venipuncture / Unknown 12/03/2022 23:11 EDT 12/03/2022 23:16 EDT Darion Tinajero MD CHEMISTRY & BLOOD GA S ORDERABLES Performing Organization Address [facility] Co de Phone Number [facility] [address] [place] [address] * EKG 12-LEAD (12/03/2022 22:36 EDT) 12/03/2022 22:3 6 EDT Narrative [facility] EKG - 12/08/2022 12:12 EDT ? [facility] ? Test Date: ?2022-12-03 Pat Name: ? FORTUNATO TANNER ?Department: ?? [facility] [address] ? Room: ? [id number] Gender: ? Female ? 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 Requested By: MILTON LEYVA Order Number: [id number] ? Reading MD: ?? DENICE LOBEL MD ? Measurements Intervals ?[place] ? Rate: ? 79 ? P: ?51 TX: ? 299 ?QRS: ?-20 QRSD: ? 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: : 1950 Requested By: MILTON LEYVA Order Number: [id number] Reading MD: DENICE NASH MD Measurements Intervals [place] Rate: 79 P: 51 TX: 299 QRS: -20 QRSD: 117 T: 145 [...] Darion Tinajero MD CARDIAC ECG ORDERABL ES [facility] EKG documented in this encounter Visit Diagnoses Diagnosis ASCVD (arteriosclerotic cardiovascular disease)- Primary Unspecified cardiovascular disease NSTEMI (non-ST elevated myocardial infarction) ([facility]) Acute myocardial infarction, subendocardial infarction, episode of care unspecified Chest pain, unspecified type Hypertrophic cardiomegaly Duodenal erosion Duodenal ulcer, unspecified as acute or chronic, without hemorrhage, perforation, or obstruction Gastrointestinal hemorrhage, unspecified gastrointestinal hemorrhage type NSTEMI (non-ST elevated myocardial infarction) ([facility]) Acute myocardial infarction, subendocardial infarction, episode of care unspecified Hypertrophic cardiomegaly NSTEMI (non-ST elevated myocardial infarction) ([facility]) Acute myocardial infarction, subendocardial infarction, episode of care unspecified documented in this encounter Admitting Diagnoses Diagnosis NSTEMI (non-ST elevated myocardial infarction) ([facility]) Acute myocardial infarction, subendocardial infarction, episode of care unspecified documented in this encounter Administered Medications Inactive Administered Medications - up to 3 most recent administrations Medication Order MAR Action Action Date Dose Rate Site acetaminophen (TYLENOL) tablet 650 mg 650 mg, oral, EVERY 4 HOURS PRN, Starting on Wed12/03/22 at 2217, Until Wed12/09/22 at 1638, Pain, [...] Discontinued, Routine, Release Given 12/09/2022 9:24 EDT 7 5 mg clopidogreL (PLAVIX) tablet PRN, Starting on Wed12/08/22 at 1544, Until Wed12/08/22 at 1547, Routine, Intraprocedure Given 12/08/2022 15:44 EDT 600 m g empagliflozin (JARDIANCE) tablet 10 mg 10 mg, oral, DAILY, First dose on Wed12/05/22 at 0900, Until Discontinued, Indications: chronic heart failure, Routine Given 12/09/2022 9:24 EDT 10 mg Given 12/08/2022 8:58 EDT 10 mg Given 12/07/2022 8:25 EDT 10 mg fentaNYL citrate (PF) injection PRN, Starting on Wed12/08/22 at 1451, Until Wed12/08/22 at 1547, Routine, Intraprocedure Given 12/08/2022 14:51 EDT 50 mc g gabapentin (NEURONTIN) capsule 600 mg 600 mg, oral, 2 TIMES DAILY, First dose on Wed12/04/22 at 0030, Until Discontinued, Routine Given 12/09/2022 9:25 EDT 60 0 mg Given 12/08/2022 20:33 EDT 600 mg Given 12/08/2022 8:58 EDT 600 mg heparin 1,000 unit/mL injection PRN, Starting on Wed12/08/22 at 1500, Until Wed12/08/22 at 1547, Routine, Intraprocedure Given 12/08/2022 15:00 EDT 4,000 Units insulin aspart U-100 (NOVOLOG FLEXPEN) injection subcutaneous, 3 TIMES DAILY WITH MEALS, First dose (after last modification) on Wed12/08/22 at 2015, Until Discontinued, Routine, Indications: SUPPLEMENTAL INSULIN Given 12/09/2022 12:10 EDT 2 U nits Given 12/09/2022 7:28 EDT 4 Units insulin glargine (LANTUS SOLOSTAR/SEMGLEE) injection pen 20 Units 20 Units, subcutaneous, DAILY, First dose on Wed12/04/22 at 0900, Until Discontinued, Routine Given 12/09/2022 9:29 EDT 20 Units Given 12/08/2022 9:00 EDT 20 Units Given 12/07/2022 8:26 EDT 20 Units iopamidoL (ISOVUE-370) injection PRN, Starting on Wed12/08/22 at 1544, Until Wed12/08/22 at 1547, Routine, Intraprocedure Given 12/08/2022 15:44 EDT 200 m L lidocaine (PF) 20 mg/mL (2 %) injection 1 dose, Starting on Wed12/08/22 at 1400, Until Wed12/09/22 at 1638 losartan (COZAAR) tablet 25 mg 25 mg, oral, AT BEDTIME, First dose on Wed12/07/22 at 2100, Until Discontinued, Routine Given 12/08/2022 20:33 EDT 2 5 mg Given 12/07/2022 20:48 EDT 25 mg metoprolol TARtrate (LOPRESSOR) tablet 12.5 mg 12.5 mg, oral, 2 TIMES DAILY, First dose on Wed12/09/22 at 1000, Until Discontinued, Routine Given 12/09/2022 10:52 EDT 12.5 mg midazolam (PF) (VERSED) injection PRN, Starting on Wed12/08/22 at 1452, Until Wed12/08/22 at 1547, Routine, Intraprocedure Given 12/08/2022 14:52 EDT 1 mg nitroglycerin (NITROSTAT) SL tablet 0.4 mg [...] on Wed12/04/22 at 0900, Until Discontinued, Routine regadenoson (LEXISCAN) 0.4 mg/5 mL injection syringe 1 dose, Starting on Wed12/07/22 at 1129, Until Wed12/09/22 at 1638 senna (SENOKOT) tablet 2 Tablet 2 Tablet, [...] mL Given 12/07/2022 8:25 EDT 5 mL sodium chloride 0.9 % (NS) infusion FA IP EQF CONTINUOUS PRN FOR ONE STEP MEDS, Starting on Wed12/08/22 at 1407, Until Wed12/08/22 at 1547, Routine, Intraprocedure New Bag 12/08/2022 14:07 EDT 25 mL/hr 25 mL/hr spironolactone (ALDACTONE) tablet 12.5 mg 12.5 [...] 0858 (Given - Provider: Loren Maier RN)1351 (MAR Hold - Provider: Automatic Transfer Provider [...] 1200, Routine 1237 (Given - Provider: Loren Maier, JALEN) empagliflozin (JARDIANCE) tablet 10 mg 10 mg, oral, DAILY, First dose on Wed12/05/22 at 0900, Until Discontinued, Indications: chronic heart failure, Routine 0825 (Given - Provider: Makayla Farfan RN) 0858 (Given - Provider: Loren Maier, RN)1351 (AUG Hold - Provider: Automatic Transfer Provider Hn - Reason: Patient off unit)162 ([facility] Unhold - Provider: Automatic Transfer Provider Hn) 0924 (Given - Provider: Tiffanie Fernandez RN) gabapentin (NEURONTIN) capsule 600 mg 600 mg, oral, 2 TIMES DAILY, First dose on Wed12/04/22 at 0030, Until Discontinued, Routine 0824 (Given - Provider: Makayal Farfan RN)204 (Given - Provider: Mikal Murphy RN) 0858 (Given - Provider: Loren Maier, JALEN)1351 (AUG Hold - Provider: Automatic Transfer Provider Hn - Reason: Patient off unit)162 ([facility] Unhold - Provider: Automatic Transfer Provider Hn)2032 [...] Murphy RN)1223 (Not Given - Provider: Loren Maier RN [...] not met) 0728 (Given - Provider: Tiffanie Fernandez RN)1210 (Given - Provider: Tiffanie Fernandez RN) insulin glargine (LANTUS SOLOSTAR/SEMGLEE) injection pen 20 Units 20 Units, subcutaneous, DAILY, First dose on Wed12/04/22 at 0900, Until Discontinued, Routine 0826 (Given - Provider: Makayla Farfan RN) 0900 (Given - Provider: Loren Maier, JALEN)1351 (AUG Hold - Provider: Automatic Transfer Provider Hn - Reason: Patient off unit)1620 (AUG Unhold - Provider: Automatic Transfer Provider Hn) 0929 (Given - Provider: Tiffanie Fernandez RN) losartan (COZAAR) tablet 25 mg 25 mg, oral, AT BEDTIME, First dose on Wed12/07/22 at 2100, Until Discontinued, Routine 204 (Given - Provider: Mikal Murphy RN) 1351 (AUG Hold - Provider: Automatic Transfer Provider Hn - Reason: Patient off unit)162 (AUG Unhold - Provider: Automatic Transfer Provider Hn)2032 (Given - Provider: Mikal Murphy RN) methylPREDNISolone sod suc(PF) (SOLU-MEDROL) injection 125 mg (COMPLETED) 125 mg, intravenous, NOW X1, 1 dose, On Wed12/08/22 at 1045, Routine 1232 (Given - Provider: Loren Maier, JALEN) metoprolol TARtrate (LOPRESSOR) tablet 12.5 mg (CANCELED) 12.5 mg, oral, 2 TIMES DAILY, First dose on Wed12/04/22 at 1145, Until Discontinued, Routine 0824 (Given - Provider: Makayla Farfan RN)2048 (Given - Provider: Mikal Murphy RN) 0858 [...] Routine 0824 (Given - Provider: Makayla Farfan RN)2047 (Given - Provider: Mikal Murphy RN) 0858 (Given - Provider: Loren Maier RN)1351 (AUG Hold - Provider: Automatic Transfer Provider Hn - Reason: Patient off unit)162 (AUG Unhold - Provider: Automatic Transfer Provider Hn)2032 (Given - Provider: Mikal Murphy RN) 0924 [...] on Wed12/04/22 at 0000, Until Discontinued, Routine 204 (Not Given - Provider: Mikal Murphy RN [...] Release 0825 (Given - Provider: Makayla Farfan RN)2048 (Not Given - Provider: Mikal Murphy RN - Reason: Other) 0121 (Not Given - Provider: Mikal Murphy RN - Reason: Other - Comment: heparin gtt)0900 (Not Given - Provider: Loren Maier, RN - Reason: Order parameters not met)1351 (AUG Hold - Provider: Automatic Transfer Provider Hn - Reason: Patient off unit)1620 (AUG Unhold - Provider: Automatic Transfer Provider Hn)1700 (Given - Provider: Loren Maier, RN) 0033 (Not Given - Provider: Mikal Murphy RN - Reason: Patient/family refused)0949 (Given - Provider: Tiffanie Fernandez, JALEN)1600 (Canceled Entry - Provider: Batch Job User [...] 0.65)1214 (New Bag - Provider: Makayla Farfan RN)205 (Rate Documented - Provider: Mikal Murphy RN) 0720 (Rate Documented - Provider: Loren Maier, JALEN)1407 (IV Pause - Provider: Meseret Geller RN) PRN Medication Order 12/07/2022 12/08/2022 12/09/2022 acetaminophen (TYLENOL) tablet 650 mg 650 mg, oral, EVERY 4 HOURS PRN, Starting on Tash 12/03/22 at 2217, Until Wed12/09/22 at 1638, Pain, Routine, Release 0109 (Given - Provider: Mikal Murphy, JALEN)2131 (Given - Provider: Mikal Murphy RN) 1336 (Given - Provider: Loren Maier RN)1351 ([facility] Hold - Provider: Automatic Transfer Provider Hn - Reason: Patient off unit)1620 ([facility] Unhold - Provider: Automatic Transfer Provider Hn)2325 (Given - Provider: Mikal Murphy RN) clopidogreL (PLAVIX) tablet (CANCELED) PRN, Starting on e 12/08/22 at 1544, Until 12/08/22 at 1547, Routine, Intraprocedure 1544 (Given - Provider: Mercedez Woody, JALEN) dextrose 50 % solution 12.5 g 12.5 g (25 mL), intravenous, PRN, Starting on Tash 12/03/22 at 2335, Until Wed12/09/22 at 1638, Low Blood Sugar, Routine 1351 ([facility] Hold - Provider: Automatic Transfer Provider Hn - Reason: Patient off unit)1620 ([facility] Unhold - Provider: Automatic Transfer Provider Hn) fentaNYL citrate (PF) injection (CANCELED) PRN, Starting on e 12/08/22 at 1451, Until Wed12/08/22 at 1547, Routine, Intraprocedure 1451 (Given - Provider: Mercedez Woody, JALEN) glucagon injection 1 mg 1 mg, intramuscular, PRN, Starting on Tash 12/03/22 at 2335, Until Wed12/09/22 at 1638, Other, Low blood sugar, Routine 1351 ([facility] Hold - Provider: Automatic Transfer Provider Hn - Reason: Patient off unit)1620 ([facility] Unhold - Provider: Automatic Transfer Provider Hn) heparin 1,000 unit/mL injection (CANCELED) PRN, Starting on e 12/08/22 at 1500, Until 12/08/22 at 1547, Routine, Intraprocedure 1500 (Given - Provider: Mercedez Woody RN) iopamidoL (ISOVUE-370) injection (CANCELED) PRN, Starting on 12/08/22 at 1544, Until 12/08/22 at 1547, Routine, Intraprocedure 1544 (Given - Provider: Edgardo Ha MD - Comment: 130 cc used) midazolam (PF) (VERSED) injection (CANCELED) PRN, Starting on Wed12/08/22 at 1452, Until Wed12/08/22 at 1547, Routine, Intraprocedure 1452 (Given - Provider: Mercedez Woody, JALEN) nitroglycerin (NITROSTAT) SL tablet 0.4 mg 0.4 mg, sublingual, EVERY 5 MIN PRN, Starting on Wed12/04/22 at 0920, Until Wed12/09/22 at 1638, Chest Pain, Routine 1351 (AUG Hold - Provider: Automatic [...] Count Last Ordered Date First Ordered Date insulin aspart U-100 (NOVOLO G FLEXPEN) injection 6 Units 1 12/09/2022 metoprolol TARtrate (LOPRESS OR) tablet 12.5 mg 2 12/09/2022 12/04/2022 apixaban (ELIQUIS) tablet 5 mg 1 12/08/2022 clopidogreL (PLAVIX) tablet 75 mg 1 023 diphenhydrAMINE (BENADRYL) injection 50 mg 1 12/08/2022 fentaNYL citrate (PF) 50 mcg/mL injection 1 12/08/2022 heparin 1,000 unit/mL injection 1 3 insulin aspart U-100 (NOVOLO G FLEXPEN) injection 3 12/08/2022 12/03/2022 insulin aspart U-100 (NOVOLO G FLEXPEN) injection 8 Units 1 12/08/2022 lidocaine (PF) 20 mg/mL (2 %) injection 1 0 12/08/2022 methylPREDNISolone sod suc(P F) (SOLU-MEDROL) injection 125 mg 1 12/08/2022 methylPREDNISolone sod suc(P F) (SOLU-MEDROL) injection 40 mg 1 12/08/2022 midazolam (PF) (VERSED) 1 mg/mL injection 1 12/08/2022 nitroglycerin 100 mcg/mL syringe 1 12/09/19 predniSONE (DELTASONE) tablet 40 mg 1 12/08 spironolactone (ALDACTONE) tablet 12.5 mg 1 12/08/2022 verapamil (ISOPTIN) 2.5 mg/mL injection 1 0 12/08/2022 losartan (COZAAR) tablet 25 mg 1 12/07/2022 regadenoson (LEXISCAN) 0.4 m g/5 mL injection syringe 1 12/07/2022 rubidium RB 82 injection 16 millicurie 2 heparin 1,000 unit/mL inject ion 2,100 Units 1 12/06/2022 heparin 1,000 unit/mL inject ion 4,200 Units 2 12/06/2022 heparin in 06/22 NS 25,000 uni t/250 mL infusion 2 12/06/2022 12/03/2022 potassium chloride (KLOR-CON ) packet 20 mEq 1 12/06/2022 potassium chloride SA (K-DUR ) tablet 20 mEq 1 12/06/2022 empagliflozin (JARDIANCE) tablet 10 mg 1 gadoterate meglumine solution 1-60 mL 1 nitroglycerin (NITROSTAT) SL tablet 0.4 mg 1 12/04/2022 sacubitril-valsartan (ENTRES TO) tablet 24-26 mg 1 12/04/2022 acetaminophen (TYLENOL) tablet 650 mg 1 aspirin chewable tablet 81 mg 1 12/03/2022 aspirin tablet 325 mg 1 12/03/2022 dextrose 50 % solution 12.5 g 1 12/03/2022 gabapentin (NEURONTIN) capsule 600 mg 1 glucagon injection 1 mg 1 12/03/2022 insulin aspart U-100 (NOVOLO G FLEXPEN) injection 7 Units 1 12/03/2022 insulin glargine (LANTUS ZAYDA OSTAR/SEMGLEE) injection pen 20 Units 1 12/03/2022 magnesium sulfate 2 g in water 50 mL 1 11/19 metoprolol TARtrate (LOPRESS OR) tablet 25 mg 1 12/03/2022 pantoprazole (PROTONIX) tablet 40 mg 1 11/19 polyethylene glycol 3350 (AK RALAX) packet 17 g 1 12/03/2022 senna (SENOKOT) tablet 2 Tablet 1 sodium chloride 0.9 % (flush) flush 5 mL 1 12/03/2022 Lab Orders Without Results Count [...] Date First Orde red Date CASE 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
--- OUTSIDE RECORDS SUMMARY | 2024-01-07 11:13 | XMS_ITS | Encounter Summary ---
Author Organization [facility] Address [address] [place] [address] Care Team Providers Care Brush Loader And Handle Attacher Name Role Phone Bryant Crain MD Primary Care Provider [phone] Carlos Ha GEOSPATIAL ENGINEER Unavailable [phone] Reason for Visit * Reason Comments Medications Refill Encounter Details Date Type Department Care Team (Late st Contact Info) Description 11/16/2022 Refill [facility] [place] [address] [place] [address] Sarika Zamudio, GEOSPATIAL ENGINEER [address] [facility] [address] [place] [address] Medications Refill Social History Tobacco Use Types Packs/Day Years [...] encounter Miscellaneous Notes * Telephone Encounter - Fanny Glez - 11/17/2022 1455 EDT Patient is going to get supplies from her primary, she has been in and out of the hospital. Will get her care from pcp * Telephone Encounter - Heidi Moore RN - 11/17/2022 0737 EDT Not seen since 07/2021- please schedule appt and return to me if staying here / med not refilled documented in this encounter Plan of Treatment Upcoming Encounters Date Type Department Care Team (Late st Contact Info) Description 03/08/2024 9:30 EDT Ancillary Procedure [facility] Cardiology - [address] [address] 03/08/2024 10:15 EDT Ancillary Procedure [facility] [place] [address] 04/05/2024 10:00 EDT Ancillary Procedure [facility] [address] [place] [address] 04/05/2024 10:00 EDT Office Visit [facility] [address] [place] [address] Carlos Ha NP [address] [phone] documented as of this encounter Visit Diagnoses Not on filedocumented in this encounter Care Teams Brush Loader And Handle Attacher Relationship Specialty Start Date End Date Bryant Crain MD [address] [place], [place] [id number] PCP - General 05/04/15 05/17/23 Carlos Ha NP [address] [phone] Consulting Clinician Cardiovascular Disease 09/14/21 documented as of this encounter
--- OUTSIDE RECORDS SUMMARY | 2024-01-07 11:13 | XMS_ITS | Encounter Summary ---
Author Organization [facility] Address [address] [place] [address] Care Team Providers Care Therapeutic Strategy Lead Name Role Phone Bryant Crain MD Primary Care Provider [phone] Carlos Ha SUPERVISOR FIREAR[employer] Unavailable [phone] Reason for Visit * Reason Comments Shortness of Breath SOB at night when la jagdeep down with dry cough, which they think could be from 2 new meds she is taking since last d/c. Also with tightness in the center of chest for a few days. Unable to sleep last night. Cardiology recommended patient come in. * Auth/Cert (Routine) Specialty Diagnoses / Procedures [facility] Referred To Contact Diagnoses Acute heart failure, unspecified heart failure type ([facility]-CMS) Acute on chronic heart failure with preserved ejection fraction (HFpEF) ([facility]) Referral ID Status Reason Start Date Expiration Date Visits Re quested Visits Authorized [id number] 12/01/2022 12/03/2022 1 1 Encounter Details Date Type Department Care Team (Latest Contact Info) Description 12/01/2022 12:29 EDT - 12/03/2022 21:39 EDT Hospital Encounter [facility] Medical / Surgical Department [address], [place] [id number] Micah Camarillo MD [address] [place] [address] Estefanía Cleaning MD [address] [place] [id number] Justus Liang MD MPH [address] [place] [address] Archie Lux MD [address] [place] [address] Acute heart failure, unspecified heart failure type (HCC-CMS) (Primary Dx); NSTEMI (non-ST elevated myocardial infarction) (HCC-CMS); Hypertrophic cardiomyopathy (HCC-CMS); Edema of right lower extremity Discharge Disposition: Short Term Hospital Social History Tobacco Use Types Packs/Day Years [...] Sign Reading Time Taken Comments Blood Pressure 160/75 12/03/20222033 EDT Pulse 71 12/01/2022 1228 EDT Temperature 36.6 ??C (97.9 ??F) 12/03/20222033 EDT Respiratory Rate 18 12/03/20222033 EDT Oxygen Saturation 95% 12/03/20222033 EDT Inhaled Oxygen Concentration - - Weight 68.9 kg (152 lb) 12/03/2022 0449 EDT Height 162.6 cm (5' 4) 12/01/2022 1228 EDT Body Mass Index 26.09 12/01/2022 1228 EDT documented in this encounter Functional Status Functional Status Response Date of Assess ment Are you deaf or do you have serious difficulty h earing? No 12/01/2022 Are you blind or do you have serious difficulty seeing, even when wearing glasses? No 12/01/2022 Do you have serious difficul ty walking or climbing stairs? (5 years old or older) No 12/01/2022 Do you have difficulty dress ing or bathing? (5 years old or older) No 12/01/2022 Because of a physical, menta l, or emotional condition, do you have difficulty doing errands alone such as visiting a doctor's office or shopping? (15 years old or older) Yes 12/01/2022 Cognitive Status Response Date of Assessm ent Because of a physical, menta l, or emotional condition, do you have serious difficulty concentrating, remembering, or making decisions? (5 years old or older) Yes 12/01/2022 documented as of this encounter Discharge Summaries * Archie Lux MD - 12/03/2022 1537 EDT Date of Admission: 12/01/2022 12:29 Date of Transfer: 12/03/22 15:38 Condition at Discharge/ Transfer: stable Primary diagnosis: NSTEMI Acute exacerbation of chronic diastolic failure Acute hypoxemic respiratory failure Consults: [facility] cardiology Procedures: none HPI/ Hospital Course: 72-year-old female with paroxysmal atrial fibrillation on Eliquis, aortic stenosis, second-degree type I heart block, ventricular tachycardia, CVA, hypertension, type 2 diabetes, Parkinson's. Recent [facility] admission for syncope, chest pain found to have GI bleeding from duodenal ulcer. Troponin of 34 noted during that hospitalization. She presented to the emergency department on December 01 with exertional dyspnea and chest tightness. She had a mildly elevated troponin of 0.09 and an elevated proBNPof 3200. She was admitted to the hospitalist service for management of presumed exacerbation of chronic diastolic failure. Patient was started on IV Lasix twice daily. Her weight improved since admission. Her troponin was monitored and was noted to be increasing. It peaked at 0.11. Cardiology recommended transfer to [facility] for cardiac catheterization. She was not started on a heparin drip as she was already anticoagulatedon apixaban. Her chest discomfort resolved and her dyspnea improved. However, she did have an episode of chest pain on the morning of December 03 that resolved with administration of nitroglycerin. She was transferred to [facility] in stable medical condition on December 03. Labs: Troponin peaked at 0.11 Radiology: Echo: Narrative: ?Left??Ventricle: The left ventricular cavity was normal in [...] flow profile with a normal, non-obstructive pattern. ?Right??Ventricle: The right ventricular cavity was normal in size. Right ventricular systolic function was normal. There was right ventricular hypertrophy. ?Left??Atrium: Left atrial cavity was mildly dilated. ?IVC/SVC: The inferior vena cava was dilated. Microbiology: None Medications: Current Facility-Administered Medications Medication Route Frequency ??? acetaminophen (TYLENOL) tablet 650 mg oral Q6H PRN ??? apixaban (ELIQUIS) tablet 5 mg oral BID ??? calcium carbonate (TUMS) tablet 500 mg (200 mg elemental calcium) 2 Tablet oral Q6H PRN ??? cholecalciferol (Vitamin D3) tablet 1,000 Units oral DAILY ??? cyanocobalamin (VITAMIN B-12) tablet 500 mcg oral DAILY ??? dextrose 40% gel 15 g of glucose oral PRN ??? dextrose 50 % solution 12.5 g intravenous PRN ? ? furosemide (LASIX) injection 20 mg intravenous BID (0800 & 1400) ??? gabapentin (NEURONTIN) capsule 600 mg oral BID ??? insulin glargine (LANTUS SOLOSTAR/SEMGLEE) injection pen 31 Units subcutaneous DAILY ??? insulin lispro (HUMALOG KWIKPEN) injection pen subcutaneous TID WC ??? insulin lispro (HUMALOG KWIKPEN) injection pen subcutaneous QHS ??? lidocaine (PF) 10 mg/mL (1 %) injection 2 mg intradermal PRN ??? loratadine (CLARITIN) tablet 10 mg oral DAILY ??? magnesium oxide (MAG-OX) tablet 400 mg oral DAILY ??? metoprolol TARtrate (LOPRESSOR) tablet 12.5 mg oral DAILY ??? nitroglycerin (NITROSTAT) SL tablet 0.4 mg sublingual Q5 MINUTES PRN ??? pantoprazole (PROTONIX) tablet 40 mg oral BID ??? polyethylene glycol 3350 (MIRALAX) packet 17 g oral Daily PRN ??? ramelteon (ROZEREM) tablet 8 mg oral AT BEDTIME PRN ??? senna (SENOKOT) tablet 2 Tablet oral AT BEDTIME PRN Follow up: To be determined by [facility] cardiology Time Spent: Over 30 minutes of time were spent on this patient's discharge/ transfer. Time included physical exam, patient education, review and interpretation of labs and imaging data, discussion with specialists, and coordination of follow-up care. Discharge instructions were given to the patient at the time of discharge. documented in this encounter Medications at Time of Discharge Medication Sig Dispensed Refills Start Date End Date acetaminophen (TYLENOL) 650 mg CR tablet 2 tab(s) orally twice a day, only as needed BD ULTRA-FINE MICRO PEN NEEDLE 32 gauge x 1/4 needle 06/17/2021 blood glucose meterIndications:Typ e 2 diabetes mellitus with hyperglycemia, with long-term current use of insulin ([facility]) by [facility] (non-drug; combo route) route daily. One touch [...] glucose scanning reader (FREESTYLE VICKY 2 READER) [facility] 1 Device by [facility] (non-drug; combo route) route daily. Dispense one [...] 1 Tablet by mouth 2 times daily. APJeTTOUCH ULTRA BLUE TEST STRIP test strips TEST [...] by mouth 2 times daily. 12/16/2022 03/16/2023 apixaban (ELIQUIS) 5 mg tablet Take 1 Tablet by mouth 2 times daily. 12/09/2022 aspirin 81 mg EC tablet Take 1 Tablet by mouth daily for 7 days. 7 Tablet 12/09/2022 12/16/2022 aspirin 81 mg EC tablet Take 81 mg by mouth daily. 12/09/2022 clopidogreL (PLAVIX) 75 mg tablet Take 1 Tablet by mouth daily. 90 Tablet 3 12/10/2022 06/03/2023 empagliflozin (JARDIANCE) 10 mg tablet Take 1 Tablet by mouth daily. 30 Tablet 2 12/04/2022 12/08/2022 metoprolol TARtrate (LOPRESSOR) 25 mg tablet Take 0.5 Tablets by mouth daily. 12/09/2022 05/18/2023 metoprolol TARtrate (LOPRESSOR) 25 mg tablet Take 0.5 Tablets by mouth 2 times daily. 30 Tablet 11/14/2022 12/09/2022 sacubitriL-valsartan (ENTRESTO) 24-26 mg tablet Take 1 Tablet by mouth 2 times daily. 60 Tablet 2 12/04/2022 12/08/2022 documented as of this encounter Discharge Disposition Disposition Code Departure Means Destination Comment s [facility] (Acute Care Facility) documented in this encounter Progress Notes * Juli Martinez RN - 12/03/2022 8314 EDT DC Destination and with who: [facility] If Residential, Level of Care: n/a Client and/or Family Aware and in Agreement with the dc plan: Client in agreement with DC plan. Denies concerns. IM Issued: n/a Community Service Referrals and Agency: n/a Was the Agency/Person Notified, Who, Contact Info?: n/a Any New Equipment/What Type and from where?: n/a Mode of Transportation and Agency: [facility] ems. * Archie Lux MD - 12/03/2022 1509 EDT Inpatient Internal Medicine Progress Note Patient Name: Joanna Hart Room: [address] [place] [address] Date of Service: 12/03/22 15:09 CC: shortness of breath 24 Hour Events: No major events overnight. Patient is awaiting transfer to [facility] Subjective: Patient had an uneventful night until about 7 in the morning when she experienced chest pain. This was relieved with a dose of nitroglycerin and she is currently chest pain-free at the time of my exam. She did report some shortness of breath with exertion upon walking to the bathroom. Objective/ Physical Exam: BP (!) 150/89 (BP Patient Position: Semi fowlers) Pulse 71 Temp 36.5 ??C (97.7 ??F) (Oral) Resp 16 Ht 162.6 cm (64) Wt 68.9 kg (152 lb) SpO2 92% BMI 26.09 kg/m?? General: Alert, well-appearing, pleasant female in no obvious distress HEENT: white sclerae. Cardiovascular: irregular rate and rhythm; no murmurs Respiratory: Clear breath sounds. Does not appear dyspneic. Breathing room air oxygen Gastrointestinal: Abdomen is soft, nontender, nondistended. No hepatomegaly. No splenomegaly Musculoskeletal: No effusions Extremities: Bilateral lower extremity edema noted Neurological: Alert and oriented ??3. No slurred speech Genitourinary: No Covarrubias catheter noted Psych: Appropriate affect. appears calm Skin: intact. no rashes Labs: Hemoglobin 8.7 Assessment/ Clinical Impression: 72 y.o. female with paroxysmal atrial fibrillation on Eliquis, aortic stenosis, 2nd degree type I heart block, ventricular tachycardia, CVA, hypertension, hyperlipidemia, DM2, and Parkinson's. Recently admitted to [facility] with chest pain and found to have a GI bleed due to erosion in the duodenal bulb and an NSTEMI with troponin peak of 34. She presented 12/01 with shortness of breath, noted to havea heart failure exacerbation and NSTEMI. Her troponin peaked at 0.11 with cardiology recommending transfer to [facility] for cardiac catheterization. Plan: Acute exacerbation of chronic diastolic failure- - Continue twice daily Lasix - Avoid IV fluids - Monitor daily weights. Her weight has improved since admission - Preserved ejection fraction noted on echo this admission. No wall motion abnormalities. NSTEMI- - Troponin peaked at 0.11 - Continue to monitor on telemetry - Holding off on heparin drip as patient is already on apixaban - Awaiting transfer to [facility] for cardiac catheterization Acute hypoxemic respiratory failure- - Appears to be resolved with treatment of heart failure exacerbation but continue to monitor oxygen saturations Type 2 diabetes with neuropathy- - Insulin sliding scale. - Continue Lantus - Continue gabapentin -Holding metformin, Ozempic Paroxysmal atrial fibrillation- - Continue apixaban, metoprolol Duodenal ulcer- - Continue Protonix twice daily - Periodically monitor hemoglobin. No evidence of obvious bleeding CODE STATUS- - Full code FEN- - Heart healthy, carb consistent diet. Prophylaxis: -Continue prior to admission apixaban Disposition: -Transfer to [facility] once bed available Greater than 50 minutes of time were spent in the care of this patient today. Time spent included review of the medical chart, review of laboratory data, review of imaging, examining and evaluating the patient, patient counseling/ family updates, treatment planning, placement of orders, discussion with ancillary staff/ consultants, and discharge planning/ coordination of care. This excludes time reported with other services. * Zully Melton, RN - 12/02/2022 1612 EDT NOA during shift. Pt to be transferred to [facility] when bed becomes available. Pt went for US for RLE today. Serial trops continued. Up with standby assist and walker to bathroom. Medicated per AUG. Safety measures in place. Call light within reach. * Suad Silveira - 12/02/2022 1330 EDT Cm Note - Patient is awaiting transfer to [facility]. CM to follow. * Suad Silveira - 12/02/2022 0957 EDT Initial Case Management/Social Work Assessment and Discharge Plan/Readmission Risk Assessment REASON FOR ADMISSION: Acute heart failure, unspecified heart failure type (HCC- CMS) ([facility]) Patient understands reason for admission: Yes PATIENT INFO VERIFIED: PCP Type of housing (single family, condo, apartment, fpc, single room occupancy, [facility] funded hotel room, group fpc) - Home Who does the patient live with? Does the patient have access to their own bedroom/bathroom/kitchen - or is it shared with others? Yes Name of housing complex (ex [facility], [facility], etc)- n/a Housing Authority/Managing Organization - n/a Community Care Providers (casey saw operator, [facility] nurse, etc) name and contact information- n/a LIVING ARRANGEMENTS AND ACCESSIBILITY ISSUES: Living Arrangements: Spouse / significant other Levels: 1 Stairs to enter: 0 Handicap access: None Bathroom located on bedroom level?: Yes What in home social supports are available to the patient? Spouse / significant other Is 24/7 care available? Yes ADVANCED DIRECTIVES, POA &/or COLST IN PLACE: Healthcare Directive: Yes, patient has advance directive for healthcare treatment Type of Healthcare Directive: Durable power of speech language pathology assistant for health care, Health care treatment directive Copy in Chart: Yes, new copy in paper chart @ [facility] Information Provided on Healthcare Directives: No Information on Healthcare Directives Requested: No DIRECTIVES FOR FINANCES: Directive For Finances: No TRANSPORTATION: Transportation: Family Transportation Additional Details: vs. ambulance to [facility] Final Discharge Destination: Home Patient expects to be discharged to: Home CULTURAL, JEW and/or LANGUAGE factors affecting health care/discharge planning: Spiritual/Cultural Requests: None Insurance Information: Medical Insurance: Yes Type of insurance: Medicare ([facility]) Referred to patient financial services: No Nutrition: DISCHARGE RISK ASSESSMENT: Total # selected above: Tentative plan to address the risk of re-hospitalization for those at HIGH MODERATE RISK: RAPT TOOL: Patient expects to be discharged to: Home SBIRT: FUNCTIONAL STATUS: Activities patient requires assistance: None Assistive Devices: Walker Walker type: Front wheel COMMUNITY RESOURCES/SUPPORTS: Primary Care Provider: Bryant Crain PCP Verified: Specialists: Type of Home Health Services: None DME Provider: Pharmacy: [facility] [address] [address] [id number] [address] Home Health: Other: [facility] TRANSITION PLAN: Patients PCP, pharmacy and demographics verified. Patient lives withher in a one story house with one step to enter. Patient has an advanced directive on file listing her as medical agent. Patient utilizes a walker and no other DME's. Patient is expected to transfer to [facility] today for a heart cath. CM to follow. SUAD SILVEIRA 12/02/2022 9:57 * Justus Liang MD MPH - 12/02/2022 0716 EDT Medicine Progress Note Service Date: 12/02/2022 Admit Date: 12/01/2022 12:29 Hospital Day: 1 PCP: Bryant Marshall Naman Hart is a 72 y.o. female with a chief complaint of Shortness of Breath (SOB at night when laying down with dry cough, which they think could be from 2 new meds she is taking since last d/c. Also with tightness in the center of chest for a few days. Unable to sleep last night. Cardiology recommended patient come in.) now admitted with a diagnosis of Acute heart failure, unspecified heart failure type (HCC-CMS) ([facility]). 24 Hour Events: ?? Troponin downtrending Subjective/Objective Subjective Patient states that she has some shortness of breath, no chest pain or pressure. Previously felt chest pressure/pain like a small child is sitting on her chest. Not currently feeling them. She deniesmuch peripheral edema. Objective Vital Signs Temp: [36.7 ??C (98 ??F)-36.9 ??C (98.5 ??F)] ; Heart Rate: [66 BPM-82 BPM] , Pulse: [71] ; BP: (148-179)/(69-92) ; Resp: [14-22] ; SpO2: [87 %-97 %] Physical Exam General: Well-appearing female lying hospital in no acute distress on 1 L nasal cannula. Lungs: Diminished bilaterally. Cardiac: Regular rate and rhythm, no appreciable murmur. Extremities: There is trace peripheral edema Neuro: Alert and oriented x3. Meds: Current Facility-Administered Medications: ??? apixaban (ELIQUIS) tablet 5 mg, 5 mg, BID ??? calcium carbonate (TUMS) tablet 500 mg (200 mg elemental calcium) 2 Tablet, 2 Tablet, Q6H PRN ??? Cholecalciferol (Vitamin D3) tablet 400 Units, 400 Units, DAILY ??? cyanocobalamin (VITAMIN B-12) tablet 500 mcg, 500 mcg, DAILY ??? dextrose 40% gel 15 g of glucose, 15 g of glucose, PRN ??? dextrose 50 % solution 12.5 g, 12.5 g, PRN ??? gabapentin (NEURONTIN) capsule 600 mg, 600 mg, BID ??? insulin glargine (LANTUS SOLOSTAR/SEMGLEE) injection pen 31 Units, 31 Units, DAILY ??? insulin lispro (HUMALOG KWIKPEN) injection pen, , TID WC ??? insulin lispro (HUMALOG KWIKPEN) injection pen, , QHS ??? lidocaine (PF) 10 mg/mL (1 %) injection 2 mg, 2 mg, PRN ??? loratadine (CLARITIN) tablet 10 mg, 10 mg, DAILY ??? magnesium oxide (MAG-OX) tablet 400 mg, 400 mg, DAILY ??? metoprolol TARtrate (LOPRESSOR) tablet 12.5 mg, 12.5 mg, DAILY ??? pantoprazole (PROTONIX) tablet 40 mg, 40 mg, BID ??? polyethylene glycol 3350 (MIRALAX) packet 17 g, 17 g, Daily PRN ??? ramelteon (ROZEREM) tablet 8 mg, 8 mg, AT BEDTIME PRN ??? senna (SENOKOT) tablet 2 Tablet, 2 Tablet, AT BEDTIME PRN Labs: Results for orders placed or performed during the hospital encounter of 12/01/22 (from the past 24 hour(s)) COMPLETE BLOOD COUNT AND DIFFERENTIAL Result Value Ref Range WBC 8.07 4.00 - 12.40 K/cmm RBC 3.23 (L) 3.86 - 5.04 M/cmm Hemoglobin 8.7 (L) 11.6 - 15.2 g/dL HCT 28.0 (L) 34.9 - 44.4 % MCV 87 81 - 98 fL MCH 26.9 26.7 - 33.3 pg MCHC 31.1 (L) 32.1 - 35.9 g/dL RDW-CV 14.8 (H) <14.7 % RDW-SD 46.4 <50.4 fl PLT 434 (H) 141 - 377 K/cmm MPV 10.1 9.5 - 12.7 fL % Neutrophils 62.9 % % Lymphocytes 27.5 % % Monocytes 6.1 % % Eosinophils 2.2 % % Basophils 0.9 % % Immature Grans 0.4 % Absolute Neutrophils 5.08 2.20 - 8.85 K/cmm Absolute Lymphocytes 2.22 1.09 - 3.30 K/cmm Absolute Monocytes 0.49 0.10 - 0.80 K/cmm Absolute Eosinophils 0.18 0.03 - 0.61 K/cmm ABS Basophils 0.07 0.01 - 0.11 K/cmm Absolute Immature Grans 0.03 0.00 - 0.06 K/cmm Type of Differential: Auto BASIC METABOLIC PANEL (BMP) Result Value Ref Range Sodium 137 136 - 145 mmol/L Potassium 4.8 3.5 - 5.0 mmol/L Chloride 106 96 - 110 mmol/L CO2 Total 20 (L) 22 - 32 mmol/L Anion Gap 11 5 - 14 mmol/L Glucose 272 (H) 70 - 100 mg/dl Calcium 9.9 8.5 - 10.5 mg/dL BUN 10 10 - 26 mg/dL Creatinine 0.77 0.52 - 1.04 mg/dL eGFR 83 >60 mL/min/1.73m2 TROPONIN I Result Value Ref Range Troponin I (ng/mL) 0.090 (HH) <0.034 ng/mL MAGNESIUM Result Value Ref Range Magnesium 1.4 (L) 1.7 - 2.8 mg/dL HOLD BLUE TOP Result Value Ref Range Hold Hold NT PRO BNP Result Value Ref Range NT-pro BNP 3,200 (H) <221 pg/mL TROPONIN I Result Value Ref Range Troponin I (ng/mL) 0.107 (HH) <0.034 ng/mL POCT GLUCOSE, INTERFACED Result Value Ref Range Glucose, POC 126 (H) 70 - 100 mg/dL LAB POC COMMENT (GLUCOSE) Test Performed in [address] [place] [address] POCT GLUCOSE, INTERFACED Result Value Ref Range Glucose, POC 176 (H) 70 - 100 mg/dL LAB POC COMMENT (GLUCOSE) Test Performed in [address] [place] [address] TROPONIN I Result Value Ref Range Troponin I (ng/mL) 0.130 (HH) <0.034 ng/mL MAGNESIUM Result Value Ref Range Magnesium 1.8 1.7 - 2.8 mg/dL BASIC METABOLIC PANEL (BMP) Result Value Ref Range Sodium 139 136 - 145 mmol/L Potassium 3.9 3.5 - 5.0 mmol/L Chloride 109 96 - 110 mmol/L CO2 Total 21 (L) 22 - 32 mmol/L Anion Gap 9 5 - 14 mmol/L Glucose 156 (H) 70 - 100 mg/dl Calcium 10.2 8.5 - 10.5 mg/dL BUN 12 10 - 26 mg/dL Creatinine 0.90 0.52 - 1.04 mg/dL eGFR 69 >60 mL/min/1.73m2 MAGNESIUM Result Value Ref Range Magnesium 1.7 1.7 - 2.8 mg/dL Test results still pending from this admission Procedure Component Value Units Date/Time Complete Blood Count and Differential [[id number]] Collected: 12/02/2244 Lab Status: In process Specimen: Blood, Venous Updated: 12/02/2252 Micro: No results found for this or any previous visit (from the past 24 hour(s)). I reviewed the patient's laboratory studies for today. Recent Imaging: Chest x-ray 12/01: Tiny right pleural effusion. Echocardiogram 12/02: EF 60 to 65%, findings consistent with left ventricular diastolic dysfunction,septal asymmetric hypertrophy of the left ventricle. Left ventricular wall motion normal with no regional wall motion abnormalities. Inferior vena cava dilated. Lower extremity venous duplex 12/02: No DVT in the right lower extremity. Assessment/Plan Assessment Joanna Hart is a 72 y.o. female with history of paroxysmal atrial fibrillation on Eliquis, aortic stenosis, second degree type I heart block, ventricular tachycardia, CVA, hypertension, hyperlipidemia, DM2, and Parkinson's who was recently admitted at [facility] with chest pain and found to have a GI bleed due to erosion in the duodenal bulb and an NSTEMI with troponin peak of 34 who presented with shortness of breath and has been admitted for heart failure exacerbation and NSTEMI. Her troponin trended up overnight and cardiology today recommending transfer to [facility] for cardiac catheterization. Plan Chronic heart failure with preserved ejection fraction with acute exacerbation - Strict I's and O's, daily weights - Furosemide 20 twice daily IV - Echocardiogram pending. NSTEMI - Type I versus type II - Trend troponin to peak, monitor telemetry, trend EKG - Obtain echocardiogram - Holding on aspirin and heparin currently. 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 - Transfer to [facility] for cardiac catheterization. Acute hypoxemic respiratory failure - Secondary to above - Oxygen, wean as tolerated. Recent GI bleeding - Continue PPI twice daily - Monitor CBC, evidence of bleeding. Lower extremity edema - Given right greater than left/asymmetric, right lower extremity ultrasound obtained, no evidence of DVT. Atrial fibrillation - Continue apixaban - Continue metoprolol. History of NSVT and ventricular tachycardia - Monitor telemetry, BMP, magnesium. DM2 - Continue Lantus - Sliding scale insulin meals - Hold Ozempic, metformin Neuropathy - Continue gabapentin FEN: DIET NPO AFTER MIDNIGHT DIET HEART HEALTHY CONSISTENT CARB VTE Prophylaxis: Continuing therapeutic apixaban Discharge Plan: Transfer to [facility] anticipated 24 to 48 hours CODE STATUS: Full Code Advanced directive I spent more than 50 minutes in clinical time solely dedicated to caring for this patient today. Time spent in review of the medical chart, review of labs, review of imaging, examining and evaluatingthe patient, counseling, discussion with consultants, placing orders and coordination of care. Thisexcludes time reported with other services. Justus Liang MD MPH, 12/02/2022 7:16 * Zully Melton RN - 12/01/2022 1837 EDT Pt came to floor in stable condition from the ED at approximately 1730. Skin assessment and admission database completed. Pt oriented to unit. Safety measures in place. Call light within reach. documented in this encounter H&P Notes * Estefanía Cleaning MD - 12/01/2022 1618 EDT Hospital Medicine Admission History & Physical Service Date: 12/01/2022 Admit Date: 12/01/22 Primary Care Provider: Bryant Crain Chief Complaint: Shortness of breath HPI Joanna Hart is a 72 y.o. female with paroxysmal atrial fibrillation on Eliquis, aortic stenosis, second-degree type 1 heart block, history of ventricular tachycardia (2019 followed up with negative MPI), CVA on aspirin, hypertension, hyperlipidemia, type 2 diabetes, Parkinson's, and recent episode of NSVT currently being monitored with a Zio patch, admitted at [facility] 11/11/2022 through 11/14/2022 after presenting with syncope and chest pain and found to have GI bleed requiring ICU level care. She underwent EGD during the hospital stay suggestive of recent but not active bleeding. She had scattered petechiae as well as an erosion in the duodenal bulb but no intervention for active bleeding was required. She had a significant elevation in troponin during that hospital stay of 34 downtrending to 32 and thought to most likely represent demand ischemia in the setting of her GI bleed and some pre-existing hypertrophic cardiomyopathy. Left heart cath was deferred because of her active GI bleed but she was referred for outpatient evaluation at discharge including cardiac MRI and cardiac event monitor with OT. She has been feeling low energy but otherwise well since her hospital discharge. No chest pain and no further GI bleeding. However, 3 to 4 days ago she developed chest tightness that woke her from sleep. This associated with shortness of breath and felt improved by sitting on the edge of the bed. She is continue to have exertional dyspnea and chest tightness with any activity since that time. Shealso notes a dry cough and new swelling in her right ankle as of yesterday. No fevers or chills. Nosputum production. Having brown stools without any evidence of GI bleeding. On arrival in the emergency department today, she is mildly hypertensive but otherwise her vitals are within normal limits and her breathing is comfortable on room air. ECG without acute ischemic findings. She has a mildly elevated troponin at 0.09 and an NT proBNP of 3200. Her hemoglobin is stable8.7. Emergency department was in contact with cardiology. Understand the recommendation was for diuresis and admission with consideration of transfer to [facility] for left heart catheterization dependingon her clinical course. Of note, she resumed her apixaban for atrial fibrillation on Wednesday the under the guidance of her PCP and has not had clinically apparent bleeding since that time. Review of Systems 12 point ROS performed and negative unless otherwise noted above Past Medical History: Diagnosis Date ??? Cerebrovascular accident (CVA) ([facility]) 06/01/2019 ??? Diabetes mellitus, type 2 ([facility]) 01/26/2011 On metformin On metformin ??? Essential hypertension 06/01/2019 ??? Mixed hyperlipidemia 06/05/2019 ??? Nonrheumatic aortic valve stenosis 06/01/2019 ??? Paroxysmal atrial fibrillation ([facility]) ([facility]) 06/01/2019 History reviewed. No pertinent surgical history. Social History Tobacco Use ??? Smoking status: Never ??? Smokeless tobacco: Never Substance Use Topics ??? Alcohol use: Not on file History reviewed. No pertinent family history. No current facility-administered medications on file prior to encounter. Current Outpatient Medications on File Prior to Encounter Medication Sig Dispense Refill ??? acetaminophen (TYLENOL) 650 mg CR tablet 2 tab(s) orally twice a day, only as needed ??? apixaban (ELIQUIS) 5 mg tablet Take 1 Tablet by mouth 2 times daily. ??? aspirin 81 mg EC tablet Take 81 mg by mouth daily. (Patient not taking: Reported on 11/20/2022) ??? BD ULTRA-FINE MICRO PEN NEEDLE 32 gauge x /4 needle ??? blood glucose meter by [facility] [place] (non-drug; combo route) route daily. One touch [...] glucose scanning reader (FREESTYLE VICKY 2 READER) [facility] 1 Device by [facility] (non-drug; comboroute) route daily. Dispense one reader [...] ??? lancets/blood glucose strips (ONE TOUCH COMBO [facility] [place]) -to test blood sugar - twice daily [...] EVERY 2 WEEKS ??? [place] [place] Allergies Allergen Reactions ??? Hydroxychloroquine Anaphylaxis ??? [...] ??? Propoxyphene N-Acetaminophen Other reaction(s): Hallucinations ??? Nocanqt-Nic-Kpn Reductase Inhibitors ??? Trulicity [Dulaglutide] Gi Side effect Objective Vitals Temp: [36.9 ??C (98.5 ??F)] , Heart Rate: [66 BPM-71 BPM] , Pulse: [71] , Resp: [18-22] , BP: (148-163)/(75-82) , SpO2: [93 %-97 %] , Numeric Pain Level (Scale 1-10): 6 Weight: Weight : 72.1 kg (159 lb) Body mass index is 27.29 kg/m??. Physical Exam Vitals reviewed. Constitutional: General: She is not in acute distress. Appearance: She is not toxic-appearing. HENT: Head: Normocephalic and atraumatic. Mouth/Throat: Mouth: Mucous membranes are moist. Pharynx: Oropharynx is clear. Eyes: Conjunctiva/sclera: Conjunctivae normal. Cardiovascular: Rate and Rhythm: Normal rate and regular rhythm. Pulmonary: Effort: Pulmonary effort is normal. Breath sounds: Normal breath sounds. Abdominal: General: Bowel sounds are normal. There is no distension. Palpations: Abdomen is soft. There is no mass. Tenderness: There is no abdominal tenderness. There is no guarding. Musculoskeletal: General: No deformity. Cervical back: Neck supple. Right lower leg: Edema (Trace right greater than left pitting edema, no right calf tenderness) present. Left lower leg: Edema present. Skin: General: Skin is warm and dry. Findings: No rash. Neurological: General: No focal deficit present. Mental Status: She is alert and oriented to person, place, and time. Psychiatric: Mood and Affect: Mood normal. Behavior: Behavior normal. Labs I have personally reviewed Recent Labs 12/01/22 1303 WBC 8.07 RBC 3.23* HGB 8.7* HCT 28.0* MCV 87 MCH 26.9 MCHC 31.1* PLT 434* NEUTROABS 5.08 Recent Labs 12/01/22 1303 NA 137 K 4.8 CL 106 CO2 20* BUN 10 CREATININE 0.77 CALCIUM 9.9 MG 1.4* Recent Labs 12/01/22 1303 TROPONINI 0.090* Imaging I have independently visualized images XR CHEST PORTABLE 1 VIEW Result Date: 12/01/2022 Tiny right pleural effusion.. ECG sinus rhythm with first-degree AV block, left ventricular hypertrophy, prolonged QTc Assessment Joanna Hart is a 72 y.o. female with with paroxysmal atrial fibrillation on Eliquis, aortic stenosis, second-degree type 1 heart block, history of ventricular tachycardia (2019 followed up with negative MPI), CVA on aspirin, hypertension, hyperlipidemia, type 2 diabetes, Parkinson's, and recentepisode of NSVT currently being monitored with a Zio patch, admitted at [facility] 11/11/2022 through 11/14/2022 after presenting with syncope and chest pain and found to have GI bleed requiring ICU level care. Bleeding was self-limited after holding Eliquis. Course was complicated by marked troponin elevation (as high as 34) but left heart catheterization was deferred in the setting of active bleeding.There was some suspicion that this was demand ischemia due to GI bleed and hypertrophic cardiomyopathy. She now returns to the emergency department with 3 days of chest tightness, exertional dyspnea,some orthopnea. No evidence of ongoing bleeding and she is back on her Eliquis. She has a very mildly elevated troponin and an elevated BNP with some trace lower extremity edema. She will be admittedfor gentle diuresis in the setting of hypertrophic cardiomyopathy and probable acute on chronic HFpEF, as well as consideration of possible inpatient ischemic evaluation. Plan #Acute on chronic HFpEF #Hypertrophic cardiomyopathy #NSTEMI, type I versus type II. Troponin substantially lower than during recent admission. -Emergency department was in contact with cardiology this evening, will plan for formal consult tomorrow. -Gentle diuresis. Received 20 of IV Lasix x1 -Strict I's and O's -Daily weights -Salt restricted diet -N.p.o. after midnight in case ischemic evaluation indicated -Telemetry -Cycle troponins -She did not receive aspirin or heparin in the emergency department. Of note she is continued on her [employer] apixaban. #Recent GI bleed -Continue PPI BID -Stable anemia and no clinical evidence of active bleeding even though she has resumed apixaban #New asymmetric right greater than left lower extremity edema -Given recent lapse in Eliquis, ordered right lower extremity duplex ultrasound to exclude DVT, pending #Type 2 diabetes complicated by neuropathy -Continue [employer] Lantus daily -SSI -[employer]ST gabapentin for neuropathy -Holding [employer]LYST metformin and Ozempic #Atrial fibrillation -Continue [employer] metoprolol -Continue [employer]ST apixaban VTE Prophylaxis -[employer]LYST Eliquis Code: Full Discharge Plan -Pending clinical course. Consults Cardiology Admission status Inpatient admission due to anticipated duration of hospitalization is two midnights or greater due to acute on chronic CHF, HCM. Discussed with Dr. Payton in the ED Estefanía Cleaning MD 12/01/2022 16:18 documented in this encounter ED Notes * Micah Camarillo MD - 12/01/2022 1340 EDT Emergency Department Visit Medical Decision Making Relevant Data as of 12/01/22 1340 WedDec 01, 2022 1337 The patient is a 72-year-old female with a history of recent ICU admission for hematemesis andmelena who presents to the emergency department with orthopnea, dry cough, chest tightness. She arrives in no distress, is slightly hypertensive but with no respiratory distress, with clear lungs ameya reassuring exam. Plan of care includes blood work including CBC, magnesium, BMP, BNP, troponin, Gieg. EKG shows sinus rhythm, rate of 72, T wave inversion in aVL, T wave inversion in lateral leads, unchanged when compared with prior. No ischemic ST segment changes. I reviewed the patient's recent discharge summary and her transthoracic echocardiogram report. [NR] Chest x-ray, 1 view, on my independent interpretation shows a small right-sided pleural effusion, no other focal opacity concerning for pneumonia, no pneumothorax. CBC shows stable anemia with hemoglobin 8.7, medic at 28. Mild thrombocytosis with platelets 434. BMP shows hyperglycemia with glucose 272, otherwise no acute concerning findings. Troponin reviewed, significant for slightly elevated 0.090. This is compared with her troponin of 32.5 3 weeks ago when she was admitted for NSTEMI and GI bleed. Given her known hypertrophic cardiomyopathy, I have low concern for acute ACS at this time as a driving factor for her symptoms and rather favor a baseline low or recovering troponin from her recent elevation. Labs significant for hypomagnesemia of 1.4, patient ordered for 2 g repletion IV. BNP elevated at 3200 concerning for acute heart failure. Case discussed with Carlos Ha of cardiology. Given the patient's complex cardiac history and presentation consistent with mild acute exacerbation of heart failure, I believe the patient would bestbe served with an inpatient admission for treatment of her heart failure and consideration of further expedited work-up. Patient is agreeable with this, as is the admitting hospitalist. Considerationwas given to diuresis here in the emergency department, however given the patient's complexity and high risk nature, I believe this is best deferred at this time to be managed during admission with cardiology supervision. Relevant Data User Index [NR] Micah Camarillo MD An EKG was obtained and independently interpreted. Laboratory data was reviewed. Medical Decision Making Acute heart failure, unspecified heart failure type (HCC-CMS) (HCC): complicated acute illness or injury with systemic symptoms that poses a threat to life or bodily functions Amount and/or Complexity of Data Reviewed Labs: ordered. Decision-making details documented in ED Course. Radiology: ordered and independent interpretation performed. Decision-making details documented in ED Course. ECG/medicine tests: ordered and independent interpretation performed. Decision- making details documented in ED Course. Risk Prescription drug management. Decision regarding hospitalization. Final diagnoses: Acute heart failure, unspecified heart failure type ([facility]) ([facility]) Disposition: Admitted Chief complaint: Dyspnea on exertion, shortness of breath, dry cough, orthopnea HPI Joanna Hart is a 72 y.o. female with a history of a large heart , recent admission for GI bleed with hematemesis and melena with findings consistent with duodenitis, who presents to the emergency department with orthopnea, dry cough, chest tightness for 3 to 4 days. Patient says that immediately after discharge she had been managing okay, but over the last several days she has been experiencing worsening dyspnea on exertion such that going from the bedroom to the bathroom leaves her winded. When laying flat she experiences chest tightness and difficulty breathing such that she has to get up and open the window, or sleep in a recliner. Patient endorses perhaps very mild swelling of the right ankle but otherwise no significant lower extremity edema. She denies fever, chills, productive cough, abdominal pain, nausea or vomiting. She denies any urinary symptoms. She has been eating and drinking well. History was provided by: Patient, , medical record Records reviewed include: Discharge summary dated November 14, [address] Mari, as well as transthoracic echocardiogram report dated November 11, 2022. Patient's pertinent PMH, FH, SH were reviewed and edited as necessary. Nursing notes reviewed. A medical screening exam was performed. Physical Exam BP (!) 163/75 (BP Cuff Location: Left arm, BP Patient Position: Sitting) Pulse 71 Temp 36.9 ??C(98.5 ??F) (Oral) Resp 18 Ht 162.6 cm (64) Wt 72.1 kg (159 lb) SpO2 97% BMI 27.29 kg/m?? Physical Exam Vitals and nursing note reviewed. Constitutional: General: She is not in acute distress. Appearance: Normal appearance. She is not ill-appearing, toxic-appearing or diaphoretic. HENT: Head: Normocephalic and atraumatic. Right Ear: External ear normal. Left Ear: External ear normal. Nose: Nose normal. No congestion or rhinorrhea. Mouth/Throat: Mouth: Mucous membranes are moist. Pharynx: Oropharynx is clear. No oropharyngeal exudate or posterior oropharyngeal erythema. Eyes: General: No scleral icterus. Right eye: No discharge. Left eye: No discharge. Extraocular Movements: Extraocular movements intact. Conjunctiva/sclera: Conjunctivae normal. Pupils: Pupils are equal, round, and reactive to light. Cardiovascular: Rate and Rhythm: Normal rate and regular rhythm. Pulses: Normal pulses. Heart sounds: Murmur heard. No friction rub. No gallop. Comments: Systolic blowing murmur, faint Pulmonary: Effort: Pulmonary effort is normal. No respiratory distress. Breath sounds: Normal breath sounds. No stridor. No wheezing or rhonchi. Chest: Chest wall: No tenderness. Abdominal: General: Abdomen is flat. Bowel sounds are normal. There is no distension. Palpations: Abdomen is soft. There is no mass. Tenderness: There is no abdominal tenderness. There is no guarding or rebound. Musculoskeletal: General: No swelling, tenderness, deformity or signs of injury. Normal range of motion. Cervical back: Normal range of motion and neck supple. No rigidity or tenderness. Right lower leg: Edema present. Left lower leg: Edema present. Comments: Trace bilateral lower extremity edema, symmetrical Skin: General: Skin is warm and dry. Capillary Refill: Capillary refill takes less than 2 seconds. Coloration: Skin is not jaundiced or pale. Findings: No bruising, erythema or rash. Neurological: General: No focal deficit present. Mental Status: She is alert and oriented to person, place, and time. Mental status is at baseline. Cranial Nerves: No cranial nerve deficit. Sensory: No sensory deficit. Motor: No weakness. Coordination: Coordination normal. Gait: Gait normal. Psychiatric: Mood and Affect: Mood normal. Behavior: Behavior normal. Thought Content: Thought content normal. Judgment: Judgment normal. Procedures Procedures documented in this encounter Miscellaneous Notes * Plan of Care - Deepali Phelps RN - 12/03/2022 1909 EDT A&O x3. On telemetry. Denies chest pain or any pain in general. HS finger stick was 207. [place] to [place] [id number] [facility]. Transported via EMS. * Plan of Care - Miriam Tran RN - 12/03/2022 1708 EDT Problem: Daily Care Plan Goals Goal: Care Plan Documentation Outcome: Ongoing Flowsheets (Taken 12/03/2022 0804) Area of Focus: Circulatory Status Goal This Shift: patient will have no more chest pain Note: Patient alert and oriented X3. At change of shift this morning patient complained of chest pressure and stabbing pain, BP was elevated. MD notified. While WESLY was performing EKG at this time, the patient had a 4 beat run of vtach. Sublingual nitro was ordered and administered X1 with positiveeffect. Since this episode, she has had no more complaints of chest pain. Heart healthy diet ordered this evening once it was decided patient would not be having procedure today even if she got a bedat [facility]. Tele monitoring in place. Tele has been fluctuating today with 1st degree AV block, bundle branch block, and mobitz type I. Bed available for patient at [facility] this evening. [facility] will be transporting the patient later this evening. Patient and aware of plan. Patient is able to make needs known to staff. Safety maintained. Problem: Delirium Prevention Management Goal: Mental status/cognition is maintained/returned to baseline Outcome: Ongoing * Plan of Care - Cj Olvera RN - 12/03/2022 0330 EDT Assumed care at 1900. A&Ox4, wifty at times. VSS on RA. C/O generalized pain. PRN tylenol givenwith good effect. Tele continued. NPO at NV 12/03. Assessment as documented. See flowsheets. See Mar for all medication administration. Safety maintained. Call woods and belongings within reach. Able to make needs known. Bed alarm on. Problem: Daily Care Plan Goals Goal: Care Plan Documentation Outcome: Ongoing Problem: Delirium Prevention Management Goal: Normal Sleep Promoted Outcome: Ongoing Problem: Delirium Prevention Management Goal: Mental status/cognition is maintained/returned to baseline Outcome: Ongoing Problem: High Fall Risk: Goal: Patient will Remain Free of Falls due to Dizziness/Vertigo Outcome: Ongoing * Plan of Care - Zully Melton RN - 12/02/2022 1539 EDT Problem: Delirium Prevention Management Goal: Mental status/cognition is maintained/returned to baseline Outcome: Ongoing Goal: Sensory Stimuli Reduction Outcome: Ongoing Goal: Early Mobilization Is Achieved Outcome: Ongoing Goal: Normal Sleep Promoted Outcome: Ongoing Problem: Daily Care Plan Goals Goal: Care Plan Documentation Outcome: Ongoing Problem: Cognitive: Goal: Mental status/cognition is maintained/returned to baseline Outcome: Ongoing Problem: High Fall Risk: Goal: Patient will Remain Free of Falls due to Med. Side Effects Outcome: Ongoing Problem: High Fall Risk: Goal: Patient Will Remain Free from Fall-Related Injury Outcome: Ongoing Problem: High Fall Risk: Goal: Patient will Remain Free of Falls due to Dizziness/Vertigo Outcome: Ongoing Problem: High Fall Risk: Goal: Patient will Remain Free of Falls due to Altered Mobility Outcome: Ongoing Problem: Sensory: Goal: Ability to compensate for vision loss will be supported Outcome: Ongoing * Plan of Care - Suad Silveira - 12/02/2022 0953 EDT 12/02/22 0953 Medicare IM Notice IM notice status Patient received notification verbally and in writing while in hospital. IM notice given on admission? Yes * Plan of Care - Cj Olvera RN - 12/02/2022 0451 EDT Assumed care at 1900. A&Ox4, wifty at times. VSS on 1L NC at HS. 02 saturations dropped to 84% on RA while asleep. No C/O pain. Tele continued. NPO at NV 12/02. Assessment as documented. See flowsheets. See Mar for all medication administration. Safety maintained. Call woods and belongings within reach. Able to make needs known. Bed alarm on. Problem: Daily Care Plan Goals Goal: Care Plan Documentation Outcome: Ongoing Problem: Delirium Prevention Management Goal: Normal Sleep Promoted Outcome: Ongoing Problem: High Fall Risk: Goal: Patient will Remain Free of Falls due to Altered Mobility Outcome: Ongoing Problem: High Fall Risk: Goal: Patient will Remain Free of Falls due to Dizziness/Vertigo Outcome: Ongoing Problem: Cognitive: Goal: Mental status/cognition is maintained/returned to baseline Outcome: Ongoing * Plan of Care - Zully Melton RN - 12/01/2022 1743 EDT FOUR EYES SKIN ASSESSMENT Four Eyes skin assessment was performed on admission to the unit by Zully Melton RN and Mirella Elizalde RN. Patient has the following devices at the time of this assessment: Peripheral IV. Device related pressure injury present? No All skin intact verified by: Zully Melton RN. Last Jose Score: 12/01/2022 17:43 documented in this encounter Plan of Treatment Upcoming Encounters Date Type Department Care Team (Late st Contact Info) Description 03/08/2024 9:30 EDT Ancillary Procedure [facility] - [address] [place] [phone] 03/08/2024 10:15 EDT Ancillary Procedure [facility] [address] [place] [address] 04/05/2024 10:00 EDT Ancillary Procedure [facility] [address] [place] [phone] 04/05/2024 10:00 EDT Office Visit [facility] [address] [place] [address] [phone] Carlos Ha NP [address] [place] [address] [place] [id number] documented as of this encounter Procedures Procedure Name Priority Date/Time Associated Diagnosis Comments ECG REPORT - SCANNED 12/07/2022 12:47 EDT POCT GLUCOSE, INTERFACED Routine 12/03/2022 20:32 EDT POCT GLUCOSE, INTERFACED Routine 12/03/2022 17:12 EDT ECG REPORT - SCANNED 12/03/2022 16:31 EDT POCT GLUCOSE, INTERFACED Routine 12/03/2022 12:09 EDT POCT GLUCOSE, INTERFACED Routine 12/03/2022 7:50 EDT EKG 12-LEAD Routine 12/03/2022 7:14 EDT TROPONIN I Routine 12/03/2022 6:14 EDT COMPLETE BLOOD COUNT AND DIFFERENTIAL Routine 12/03/2022 6:14 EDT MAGNESIUM Routine 12/03/2022 6:14 EDT BASIC METABOLIC PANEL (BMP) Routine 12/03/2022 6:14 EDT TROPONIN I Routine 12/02/2022 23:27 EDT POCT GLUCOSE, INTERFACED Routine 12/02/2022 20:27 EDT POCT GLUCOSE, INTERFACED Routine 12/02/2022 16:46 EDT TROPONIN I Routine 12/02/2022 16:01 EDT POCT GLUCOSE, INTERFACED Routine 12/02/2022 11:56 EDT US LOWER VENOUS DUPLEX Routine 11:06 EDT TRANSTHORACIC ECHO (TTE) COMPLETE Routine 12/02/2022 8:52 EDT TROPONIN I Routine 12/02/2022 8:14 EDT POCT GLUCOSE, INTERFACED Routine 12/02/2022 8:01 EDT COMPLETE BLOOD COUNT AND DIFFERENTIAL Routine 12/02/2022 6:44 EDT MAGNESIUM Routine 12/02/2022 6:44 EDT BASIC METABOLIC PANEL (BMP) Routine 12/02/2022 6:44 EDT TROPONIN I Routine 12/01/2022 23:12 EDT MAGNESIUM Routine 12/01/2022 23:12 EDT POCT GLUCOSE, INTERFACED Routine 12/01/2022 20:03 EDT ECG REPORT - SCANNED 12/01/2022 17:45 EDT POCT GLUCOSE, INTERFACED Routine 12/01/2022 17:45 EDT TROPONIN I STAT 12/01/2022 16:30 EDT XR CHEST PORTABLE 1 VIEW STAT 12/01/2022 13:31 EDT HOLD BLUE TOP STAT 12/01/2022 13:03 EDT TROPONIN I STAT 12/01/2022 13:03 EDT COMPLETE BLOOD COUNT AND DIFFERENTIAL STAT 12/01/2022 13:03 EDT NT PRO BNP STAT 12/01/2022 13:03 EDT MAGNESIUM STAT 12/01/2022 13:03 EDT BASIC METABOLIC PANEL (BMP) STAT 12/01/2022 13:03 EDT EKG 12-LEAD STAT 12/01/2022 12:40 EDT documented in this encounter Results * ECG REPORT - SCANNED (12/07/2022 12:47 EDT) 12/07/2022 12:4 7 EDT Scan 2 Broadcast Traffic Coordinator PROCEDURE/MINOR CROW GICAL ORDERABLES * (ABNORMAL) POCT GLUCOSE, INTERFACED (12/03/2022 20:32 EDT) Glucose, POC 207(H) 70 - 100 mg/dL 12/03/2022 20:33 EDT [facility] HN LAB POC COMMENT (GLUCOSE) Test Performed in 2 [facility] 12/03/2022 20:33 EDT [facility] Blood CAPILLARY BLOOD / Unknown 12/03/2022 20:32 EDT 12/03/2022 20:33 EDT Estefanía Cleaning MD POINT OF CARE FUNMILAYO T ORDERABLES Performing Organization Address [facility] Co de Phone Number [facility] [address] [place] [address] * (ABNORMAL) POCT GLUCOSE, INTERFACED (12/03/2022 17:12 EDT) Glucose, POC 260(H) 70 - 100 mg/dL 12/03/2022 17:13 EDT [facility] HN LAB POC COMMENT (GLUCOSE) Test Performed in 2 [facility] 12/03/2022 17:13 EDT [facility] Blood CAPILLARY BLOOD / Unknown 12/03/2022 17:12 EDT 12/03/2022 17:13 EDT Estefanía Cleaning MD POINT OF CARE FUNMILAYO T ORDERABLES Performing Organization Address City/[facility]/ZIP Co de Phone Number [facility] [address] [place] [phone] * ECG REPORT - SCANNED (12/03/2022 16:31 EDT) 12/03/2022 16:3 1 EDT Scan 2 Broadcast Traffic Coordinator PROCEDURE/MINOR CROW GICAL ORDERABLES * (ABNORMAL) POCT GLUCOSE, INTERFACED (12/03/2022 12:09 EDT) Glucose, POC 198(H) 70 - 100 mg/dL 12/03/2022 12:10 EDT [facility] HN LAB POC COMMENT (GLUCOSE) Test Performed in 2 [facility] 12/03/2022 12:10 EDT [facility] Blood CAPILLARY BLOOD / Unknown 12/03/2022 12:09 EDT 12/03/2022 12:10 EDT Estefanía Cleaning MD POINT OF CARE FUNMILAYO T ORDERABLES [facility] [address] [place] [phone] * (ABNORMAL) POCT GLUCOSE, INTERFACED (12/03/2022 7:50 EDT) Glucose, POC 216(H) 70 - 100 mg/dL 12/03/2022 7:51 EDT [facility] HN LAB POC COMMENT (GLUCOSE) Test Performed in 2 [facility] 12/03/2022 7:51 EDT [facility] Blood CAPILLARY BLOOD / Unknown 12/03/2022 7:50 EDT 12/03/2022 7:51 EDT Estefanía Cleaning MD POINT OF CARE FUNMILAYO T ORDERABLES [facility] [address] [place] [phone] * EKG 12-LEAD (12/03/2022 7:14 EDT) 12/03/2022 7:14 EDT Narrative [facility] - 12/03/2022 8:53 EDT ? [facility] ? Test Date: ?2022-12-03 Pat Name: ? JOANNA GAUTAM ?Department: ? Room: ? 215 Gender: ? Female ? Pattern Cleaner: ?? GALLAGER C : ?1950 ? Requested By: JERE JEAN BAPTISTE Order Number: [id number] ? Reading MD: ?? AVIS ARGUETA MD ? Measurements Intervals ?[place] ? Rate: ? 81 ? P: ?35 OK: ? 284 ?QRS: ?-10 QRSD: ? 120 ?T: ?153 QT: ? 446 ? QTc: ?518 ? Interpretive Statements Sinus rhythm with 1st degree AV block with frequent premature ventricular complexes Left ventricular hypertrophy with QRS widening and repolarization abnormality Compared to ECG 12/03/2022 07:11:38 Atrial fibrillation no longer present I reviewed the tracing and have either agreed or edited the findings in this report. Electronically Signed On 12-03-2022 8:53:25 EDT by AVIS ARGUETA MD. Procedure Note Avis Argueta MD - 12/03/2022 [facility] Test Date: 2022-12-03 Pat Name: JOANNA HART Department: Room: 215 Gender: Female Pattern Cleaner: DOMINIK Parada : 1950 Requested By: JERE JEAN BAPTISTE Order Number: [id number] Reading MD: AVIS ARGUETA MD Measurements Intervals [place]in Rate: 81 P: 35 OK: 284 QRS: -10 QRSD: 120 T: 153 QT: 446 QTc: 518 Interpretive Statements Sinus rhythm with 1st degree AV block with frequent prematureventricular complexes Left ventricular hypertrophy with QRS widening and repolarizationabnormality Compared to ECG 12/03/2022 07:11:38 Atrial fibrillation no longer present I reviewed the tracing and have either agreed or edited the findings inthis report. Electronically Signed On 12-03-2022 8:53:25 EDT by AVIS SCHULTE. Archie Lux MD CARDIAC ECG ORDERA BLES [facility] * (ABNORMAL) TROPONIN I (12/03/2022 6:14 EDT) Troponin I (ng/mL) 0.106(HH) <0.034 ng/mL 12/03/2022 7:10 EDT [facility] Blood VENOUS BLOOD / Unknown Venipuncture / Unknown 12/03/2022 6:14 EDT 12/03/2022 6:26 EDT Narrative [facility] - 12/03/2022 7:10 EDT The results of this assay can be falsely lowered due to the consumption of Biotin. Justus Liang MD MPH CHEMISTRY & BLOOD GAS ORDERABLES Performing Organization Address [facility] Co de Phone Number [facility] [address] [place] [address] * (ABNORMAL) MAGNESIUM (12/03/2022 6:14 EDT) [facility] Magnesium 1.6(L) 1.7 - 2.8 mg/dL 12/03/2022 6:43 EDT [facility] Blood VENOUS BLOOD / Unknown Venipuncture / Unknown 12/03/2022 6:14 EDT 12/03/2022 6:26 EDT Justus Liang MD MPH CHEMISTRY & BLOOD GAS ORDERABLES Performing Organization Address [facility] Co de Phone Number [facility] [address] [place] [address] * (ABNORMAL) COMPLETE BLOOD COUNT AND DIFFERENTIAL (12/03/2022 6:14 EDT) [facility] WBC 5.91 4.00 - 12.40 K/cmm 12/03/2022 6:28 [facility] RBC 3.29(L) 3.86 - 5.04 M/cmm 12/03/2022 6:28 [facility] Hemoglobin 8.7(L) 11.6 - 15.2 g/dL 12/03/2022 6:28 [facility] HCT 28.2(L) 34.9 - 44.4 % 12/03/2022 6:28 [facility] MCV 86 81 - 98 fL 12/03/2022 6:28 [facility] MCH 26.4(L) 26.7 - 33.3 pg 12/03/2022 6:28 [facility] MCHC 30.9(L) 32.1 - 35.9 g/dL 12/03/2022 6:28 [facility] RDW-CV 14.9(H) <14.7 % 12/03/2022 6:28 [facility] RDW-SD 46.1 <50.4 fl 12/03/2022 6:28 [facility] PLT 407(H) 141 - 377 K/cmm 12/03/2022 6:28 [facility] MPV 9.8 9.5 - 12.7 fL 12/03/2022 6:28 [facility] % Neutrophils 47.1 % 12/03/2022 6:28 [facility] % Lymphocytes 39.1 % 12/03/2022 6:28 [facility] % Monocytes 8.0 % 12/03/2022 6:28 [facility] % Eosinophils 4.4 % 12/03/2022 6:28 [facility] % Basophils 1.2 % 12/03/2022 6:28 [facility] % Immature Grans 0.2 % 12/04/19 6:28 [facility] Absolute Neutrophils 2.79 2.20 - 8.85 K/cmm 12/03/2022 6:28 [facility] Absolute Lymphocytes 2.31 1.09 - 3.30 K/cmm 12/03/2022 6:28 [facility] Absolute Monocytes 0.47 0.10 - 0.80 K/cmm 12/03/2022 6:28 [facility] Absolute Eosinophils 0.26 0.03 - 0.61 K/cmm 12/03/2022 6:28 [facility] ABS Basophils 0.07 0.01 - 0.11 K/cmm 12/03/2022 6:28 [facility] Absolute Immature Grans 0.01 0.00 - 0.06 K/cmm 12/03/2022 6:28 [facility] Type of Differential: Auto 12/03/2022 6:28 [facility] Blood VENOUS BLOOD / Unknown Venipuncture / Unknown 12/03/2022 6:14 EDT 12/03/2022 6:26 EDT Justus Liang MD MPH PACKAGES & DNA OK OBE ORDERABLES Performing Organization Address City/[facility]/ZIP Co de Phone Number [facility] [address] [place] [address] * (ABNORMAL) BASIC METABOLIC PANEL (BMP) (12/03/2022 6:14 EDT) Sodium 138 136 - 145 mmol/L 12/03/2022 6:43 [facility] Potassium 3.5 3.5 - 5.0 mmol/L 12/03/2022 6:43 [facility] Chloride 108 96 - 110 mmol/L 12/03/2022 6:43 [facility] CO2 Total 23 22 - 32 mmol/L 12/03/2022 6:43 [facility] Anion Gap 7 5 - 14 mmol/L 12/03/2022 6:43 [facility] Glucose 210(H) 70 - 100 mg/dl 12/03/2022 6:43 [facility] Calcium 9.1 8.5 - 10.5 mg/dL 12/03/2022 6:43 [facility] BUN 16 10 - 26 mg/dL 12/03/2022 6:43 [facility] Creatinine 0.86 0.52 - 1.04 mg/dL 12/03/2022 6:43 [facility] eGFR 73 >60 mL/min/1.73 m2 12/03/2022 6:43 [facility] Blood VENOUS BLOOD / Unknown Venipuncture / Unknown 12/03/2022 6:14 EDT 12/03/2022 6:26 EDT Justus Liang MD MPH CHEMISTRY & BLOOD GAS ORDERABLES Performing Organization Address City/[facility]/ZIP Co de Phone Number [facility] [address] [place] [phone] * (ABNORMAL) TROPONIN I (12/02/2022 23:27 EDT) [facility] Troponin I (ng/mL) 0.112(HH) <0.034 ng/mL 12/03/2022 0:28 EDT [facility] Blood VENOUS BLOOD / Unknown Venipuncture / Unknown 12/02/2022 23:27 EDT 12/02/2022 23:29 EDT Narrative [facility] - 12/03/2022 0:28 EDT The results of this assay can be falsely lowered due to the consumption of Biotin. Justus Liang MD MPH CHEMISTRY & BLOOD GAS ORDERABLES Performing Organization Address [facility]/ZIP Co de Phone Number [facility] [address] [place] [phone] * (ABNORMAL) POCT GLUCOSE, INTERFACED (12/02/2022 20:27 EDT) [facility] Glucose, POC 227(H) 70 - 100 mg/dL 12/02/2022 20:28 EDT [facility] HN LAB POC COMMENT (GLUCOSE) Test Performed in 2 [facility] 12/02/2022 20:28 EDT [facility] Blood CAPILLARY BLOOD / Unknown 12/02/2022 20:27 EDT 12/02/2022 20:28 EDT Estefanía Cleaning MD POINT OF CARE FUNMILAYO T ORDERABLES [facility] [address] [place] [phone] * (ABNORMAL) POCT GLUCOSE, INTERFACED (12/02/2022 16:46 EDT) [facility] Glucose, POC 251(H) 70 - 100 mg/dL 12/02/2022 16:47 EDT [facility] HN LAB POC COMMENT (GLUCOSE) Test Performed in 2 [facility] 12/02/2022 16:47 EDT [facility] Blood CAPILLARY BLOOD / Unknown 12/02/2022 16:46 EDT 12/02/2022 16:47 EDT Estefanía Cleaning MD POINT OF CARE FUNMILAYO T ORDERABLES Performing Organization Address [facility]/ZIP Co de Phone Number [facility] [address] [place] [address] * (ABNORMAL) TROPONIN I (12/02/2022 16:01 EDT) [facility] Troponin I (ng/mL) 0.097(HH) <0.034 ng/mL 12/02/2022 16:58 EDT [facility] Blood VENOUS BLOOD / Unknown Venipuncture / Unknown 12/02/2022 16:01 EDT 12/02/2022 16:21 EDT Narrative [facility] - 12/02/2022 16:58 EDT The results of this assay can be falsely lowered due to the consumption of Biotin. Justus Liang MD MPH CHEMISTRY & BLOOD GAS ORDERABLES Performing Organization Address [facility] Co de Phone Number [facility] [address] [place] [address] * (ABNORMAL) POCT GLUCOSE, INTERFACED (12/02/2022 11:56 EDT) [facility] Glucose, POC 129(H) 70 - 100 mg/dL 12/02/2022 11:57 EDT [facility] HN LAB POC COMMENT (GLUCOSE) Test Performed in [address] [place] [address] 12/02/2022 11:57 EDT [facility] Blood CAPILLARY BLOOD / Unknown 12/02/2022 11:56 EDT 12/02/2022 11:57 EDT Estefanía Cleaning MD POINT OF CARE FUNMILAYO T ORDERABLES Performing Organization Address [facility] Co de Phone Number [facility] [address] [place] [address] * US LOWER VENOUS DUPLEX (DVT) RIGHT (12/02/2022 11:06 EDT) Anatomical Region Laterality Modality Vascular Ultrasound 12/02/2022 11:2 3 EDT Impressions 12/02/2022 11:23 EDT No deep vein thrombosis identified within the right lower extremity. Narrative 12/02/2022 11:23 EDT INDICATION: right, short of breath, recent interruption in apixiban for GIB. COMPARISON: None. TECHNIQUE: Real-time ultrasound scan of the veins of the right lower extremity with color Doppler flow, spectral waveform analysis and compression. FINDINGS: ?? Deep veins: Unremarkable. No DVT in the visualized right common femoral, profunda femoris, femoral or popliteal veins. Veins demonstrate normal color flow, are normally compressible, with normal phasic flow and/or augmentation response. No DVT identified within the proximal calf the veins. ?? Superficial veins: Unremarkable. No thrombus in the visualized great saphenous vein. ?? Soft tissues: No acute findings. No popliteal cyst. Procedure Note Ed Dean MD - 12/02/2022 INDICATION: right, short of breath, recent interruption in apixiban forGIB. COMPARISON: None. TECHNIQUE: Real-time ultrasound scan of the veins of the right lowerextremity with color Doppler flow, spectral waveform analysis andcompression. FINDINGS: Deep veins: Unremarkable. No DVT in the visualized right commonfemoral, profunda femoris, femoral or popliteal veins. Veins demonstratenormal color flow, are normally compressible, with normal phasic flowand/or augmentation response. No DVT identified within the proximal calfthe veins. Superficial veins: Unremarkable. No thrombus in the visualized greatsaphenous vein. Soft tissues: No acute findings. No popliteal cyst. IMPRESSION No deep vein thrombosis identified within the right lower extremity. Estefanía Cleaning MD IMG US VASCULAR O RDERABLES * TRANSTHORACIC ECHO (TTE) COMPLETE W/DOPPLER W/CF NO CONTRAST (12/02/2022 8:52 EDT) LV E/e', medial 0.0 [facility] POINT OF CARE Mitral E/A ratio, peak 0.80 [facility] POINT OF CARE LV ID, ED, PLAX 4.2 3.5 - 6.0 cm [facility] POINT OF CARE LV ID, ES, PLAX 3.0 2.1 - 4.0 cm [facility] POINT OF CARE IVS thickness, ED, PLAX 2.0 cm [facility] POINT OF CARE LV PW thickness, ED, PLAX 1.4 0.6 - 1.1 cm [facility] POINT OF CARE LV ejection fraction, 1-p A4C 60 % [facility] POIN T OF CARE LV end-diastolic volume, 1-p A4C 76 ml [facility] POINT OF CARE LV ejection fraction, 1-p A2C 63 % [facility] POIN T OF CARE LV end diastolic volume 1-p A2C 99 ml [facility] POINT OF CARE EF 62 % [facility] POIN T OF CARE LVOT peak velocity, S 0.9 m/s [facility] LVOT mean velocity, S 0.6 m/s [facility] PO[facility] LVOT VTI, S 16.8 cm [facility] PO INT OF CARE AV LVOT peak gradient 3 mmHg [facility] LVOT mean gradient, S 2 mmHg [facility] LV Diastolic Volume 88 mL [facility] POINT OF CARE LV Systolic Volume 34 mL U [facility] POINT OF CARE LVIDD BY MMODE 4.2 cm [facility] PO[facility] LV e', lateral 0.11 m/s [facility] POINT [facility] LV E/e', lateral 12.0 [facility] POINT OF CARE LV e', medial 0.04 m/s [facility] POINT [facility] LV e', average 0.07 m/s [facility] POINT [facility] CARE LV E/e', average 6 [facility] POINT OF CARE Mitral deceleration slope 491 cm/s2 [facility] Mitral deceleration time 258 ms [facility] POINT [facility] CARE Mitral E-wave peak velocity 1.3 m/s [facility] POINT OF CARE Mitral A-wave peak velocity 1.5 m/s [facility] POINT [facility] CARE LA Atrial Area A4C 21.2 cm2 U [facility] POINT OF CARE LA Atrial Area A2C 21.2 cm2 U [facility] POINT OF CARE LA volumes, ES, A4C 63.0 ml [facility] POINT OF CARE LA volume/bsa, ES, A4C 36.0 ml/m2 [facility] POINT OF CARE LA volume, ES, BP 78.0 ml [facility] N POINT OF CARE LA volume/bsa, ES, BP 45.0 ml/m2 [facility] POINT OF CARE LA Atrial Length A4C 5.5 cm [facility] POINT OF CARE LA Atrial Length A2C 6.1 cm [facility] POINT OF CARE RA Atrial Length A4C 5.3 cm [facility] POINT OF CARE RA Atrial Area A4C 14.3 cm2 [facility] POINT OF CARE RA Atrial Volume A4C 33.0 ml [facility] POINT OF CARE RA ESV Index A4C 19.0 ml/m2 [facility] POINT OF CARE Aortic valve peak velocity, S 2.0 m/s [facility] POINT OF CARE Aortic valve mean velocity, S 1.4 m/s [facility] POINT OF CARE Aortic valve VTI, S 34.5 cm [facility] POINT OF CARE Aortic peak gradient, S 15 mmHg [facility]INT [facility] C[facility] Aortic mean gradient, S 9 mmHg [facility] POINT [facility] C[facility] AV DOI 0.44 [facility] POIN T OF CARE Velocity ratio, mean, LVOT/AV 0.46 [facility] POINT OF CARE Mitral pressure half-time 76 ms [facility] POINT [facility] CARE Mitral mean gradient, D 4 mmHg [facility]INT [facility] CARE Mitral peak gradient, D 9 mmHg [facility] POINT [facility] CARE Mitral valve area, PHT, DP 2.9 cm2 [facility] POINT OF CARE Mitral valve, LVOT continuity 44.90 cm2 [facility] POINT [facility] C[facility] PV peak gradient 4 mmHg [facility] POINT OF CARE Aortic root ID 3.5 cm [facility] POINT OF CARE Ascending aorta ID, a-p 3.6 cm [facility] POINT OF CARE OK Int Pk Flow PISA 1.28 mL/s [facility] POINT [facility] C[facility] MR Vmean 0.98 m/s [facility] POIN T OF C[facility] LV Diastolic Volume Index 50.0 mL/m2 [facility] POINT [facility] C[facility] LV Systolic Volume Index 19.0 mL/m2 [facility] POINT OF C[facility] Pulmonic valve mean velocity, S 1 cm/s [facility] POINT OF CARE Interventricular Septum to Posterior Wall Thickness Ratio 1.4 [facility] P OINT OF CARE Anatomical Region Laterality Modality Ultrasound Narrative 12/02/2022 9:06 EDT ?Left??Ventricle: The left ventricular cavity was normal in [...] flow profile with a normal, non-obstructive pattern. ?Right??Ventricle: The right ventricular cavity was normal in size. Right ventricular systolic function was normal. There was right ventricular hypertrophy. ?Left??Atrium: Left atrial cavity was mildly dilated. ?IVC/SVC: The inferior vena cava was dilated. Left Ventricle The left ventricular cavity was [...] The right atrium was normal in size. IVC/SVC The inferior vena cava was dilated. Mitral Valve Mitral valve structure was normal. There was moderate annular calcification. There was mild mitral regurgitation. There was no significant mitral valve stenosis. MV mean gradient: 4 mmHg. Tricuspid Valve Tricuspid valve structure was normal. There was no significant tricuspid valve regurgitation. There was no tricuspid valve stenosis. Aortic Valve The aortic valve structure was trileaflet. The aortic leaflets moderately calcified. There was mild aortic valve stenosis. There was no aortic valve regurgitation. AV Peak Velocity: 2.0 m/s. AV Mean Gradient: 9 mmHg. Pulmonic Valve There was no pulmonic valve regurgitation. There was no pulmonic valve stenosis. Ascending Aorta The aortic root was normal in size. The ascending aorta was mildly dilated. Pericardium A trivial pericardial effusion was identified along the right atrial free wall. Pulmonic Artery Unable to assess PA pressure. Study Details Scanning was performed from the apical, parasternal, subcostal and suprasternal acoustic windows. Overall the study quality was adequate. Images were obtained using cardiac ultrasound machine [id number]. General Comparison Compared to the previous study, there were no significant interval changes. Justus Liang MD MPH CARDIAC ECHO [facility] [place] * (ABNORMAL) TROPONIN I (12/02/2022 8:14 EDT) [facility] Troponin I (ng/mL) 0.100(HH) <0.034 ng/mL 12/02/2022 11:56 EDT [facility] Blood VENOUS BLOOD / Unknown Venipuncture / Unknown 12/02/2022 8:14 EDT 12/02/2022 8:18 EDT Narrative [facility] - 12/02/2022 11:56 EDT The results of this assay can be falsely lowered due to the consumption of Biotin. Justus Liang MD MPH CHEMISTRY & BLOOD GAS ORDERABLES Performing Organization Address City/[facility]/ZIP Co de Phone Number [facility] [address] [place] [phone] * (ABNORMAL) POCT GLUCOSE, INTERFACED (12/02/2022 8:01 EDT) [facility] Glucose, POC 142(H) 70 - 100 mg/dL 12/02/2022 8:02 EDT [facility] HN LAB POC COMMENT (GLUCOSE) Test Performed in [address] [place] [address] 12/02/2022 8:02 EDT [facility] Blood CAPILLARY BLOOD / Unknown 12/02/2022 8:01 EDT 12/02/2022 8:02 EDT Estefanía Cleaning MD POINT OF CARE FUNMILAYO T ORDERABLES [facility] [address] [place] [address] * MAGNESIUM (12/02/2022 6:44 EDT) [facility] Magnesium 1.7 1.7 - 2.8 mg/dL 12/02/2022 7:09 EDT [facility] Blood VENOUS BLOOD / Unknown Venipuncture / Unknown 12/02/2022 6:44 EDT 12/02/2022 6:52 EDT Estefanía Cleaning MD CHEMISTRY & BLOOD GAS ORDERABLES [facility] [address] [place] [address] * (ABNORMAL) COMPLETE BLOOD COUNT AND DIFFERENTIAL (12/02/2022 6:44 EDT) WBC 8.03 4.00 - 12.40 K/cmm 12/02/2022 7:18 [facility] RBC 3.26(L) 3.86 - 5.04 M/cmm 12/02/2022 7:18 [facility] Hemoglobin 8.8(L) 11.6 - 15.2 g/dL 12/02/2022 7:18 [facility] HCT 27.7(L) 34.9 - 44.4 % 12/02/2022 7:18 [facility] MCV 85 81 - 98 fL 12/02/2022 7:18 [facility] MCH 27.0 26.7 - 33.3 pg 12/02/2022 7:18 [facility] MCHC 31.8(L) 32.1 - 35.9 g/dL 12/02/2022 7:18 [facility] RDW-CV 15.0(H) <14.7 % 12/02/2022 7:18 [facility] RDW-SD 45.3 <50.4 fl 12/02/2022 7:18 [facility] PLT 422(H) 141 - 377 K/cmm 12/02/2022 7:18 [facility] MPV 10.4 9.5 - 12.7 fL 12/02/2022 7:18 [facility] % Neutrophils 53.1 % 12/02/2022 7:18 [facility] % Lymphocytes 35.5 % 12/02/2022 7:18 [facility] % Monocytes 6.5 % 12/02/2022 7:18 [facility] % Eosinophils 3.1 % 12/02/2022 7:18 [facility] % Basophils 0.9 % 12/02/2022 7:18 [facility] % Immature Grans 0.9 % 12/03/19 7:18 [facility] Absolute Neutrophils 4.27 2.20 - 8.85 K/cmm 12/02/2022 7:18 [facility] Absolute Lymphocytes 2.85 1.09 - 3.30 K/cmm 12/02/2022 7:18 [facility] Absolute Monocytes 0.52 0.10 - 0.80 K/cmm 12/02/2022 7:18 [facility] Absolute Eosinophils 0.25 0.03 - 0.61 K/cmm 12/02/2022 7:18 [facility] ABS Basophils 0.07 0.01 - 0.11 K/cmm 12/02/2022 7:18 [facility] Absolute Immature Grans 0.07(H) 0.00 - 0.06 K/cmm 12/02/2022 7:18 [facility] Type of Differential: Auto 12/02/2022 7:18 [facility] Blood VENOUS BLOOD / Unknown Venipuncture / Unknown 12/02/2022 6:44 EDT 12/02/2022 6:52 EDT Estefanía Cleaning MD PACKAGES & DNA OK OBE ORDERABLES [facility] [address] [place] [address] * (ABNORMAL) BASIC METABOLIC PANEL (BMP) (12/02/2022 6:44 EDT) Sodium 139 136 - 145 mmol/L 12/02/2022 7:09 [facility] Potassium 3.9 3.5 - 5.0 mmol/L 12/02/2022 7:09 [facility] Chloride 109 96 - 110 mmol/L 12/02/2022 7:09 [facility] CO2 Total 21(L) 22 - 32 mmol/L 12/02/2022 7:09 [facility] Anion Gap 9 5 - 14 mmol/L 12/02/2022 7:09 [facility] Glucose 156(H) 70 - 100 mg/dl 12/02/2022 7:09 [facility] Calcium 10.2 8.5 - 10.5 mg/dL 12/02/2022 7:09 [facility] BUN 12 10 - 26 mg/dL 12/02/2022 7:09 [facility] Creatinine 0.90 0.52 - 1.04 mg/dL 12/02/2022 7:09 [facility] eGFR 69 >60 mL/min/1.73 m2 12/02/2022 7:09 [facility] Blood VENOUS BLOOD / Unknown Venipuncture / Unknown 12/02/2022 6:44 EDT 12/02/2022 6:52 EDT Estefanía Cleaning MD CHEMISTRY & BLOOD GAS ORDERABLES Performing Organization Address City/[facility]/ZIP Co de Phone Number [facility] [address] [place] [address] * MAGNESIUM (12/01/2022 23:12 EDT) [facility] Magnesium 1.8 1.7 - 2.8 mg/dL 12/01/2022 23:30 EDT [facility] Blood VENOUS BLOOD / Unknown Venipuncture / Unknown 12/01/2022 23:12 EDT 12/01/2022 23:14 EDT Estefanía Cleaning MD CHEMISTRY & BLOOD GAS ORDERABLES Performing Organization Address City/[facility]/ZIP Co de Phone Number [facility] [address] [place] [address] * (ABNORMAL) TROPONIN I (12/01/2022 23:12 EDT) Pathologist [facility] Troponin I (ng/mL) 0.130(HH) <0.034 ng/mL 12/01/2022 23:53 EDT [facility] Blood VENOUS BLOOD / Unknown Venipuncture / Unknown 12/01/2022 23:12 EDT 12/01/2022 23:14 EDT Narrative [facility] - 12/01/2022 23:53 EDT The results of this assay can be falsely lowered due to the consumption of Biotin. Estefanía Cleaning MD CHEMISTRY & BLOOD GAS ORDERABLES Performing Organization Address City/[facility]/ZIP Co de Phone Number [facility] [address] [place] [address] * (ABNORMAL) POCT GLUCOSE, INTERFACED (12/01/2022 20:03 EDT) [facility] Glucose, POC 176(H) 70 - 100 mg/dL 12/01/2022 20:05 EDT [facility] HN LAB POC COMMENT (GLUCOSE) Test Performed in 2 [facility] 12/01/2022 20:05 EDT [facility] Blood CAPILLARY BLOOD / Unknown 12/01/2022 20:03 EDT 12/01/2022 20:04 EDT Estefanía Cleaning MD POINT OF CARE FUNMILAYO T ORDERABLES Performing Organization Address City/[facility]/ZIP Co de Phone Number [facility] [address] [place] [id number] * ECG REPORT - SCANNED (12/01/2022 17:45 EDT) 12/01/2022 17:4 5 EDT Scan 2 [employer] PROCEDURE/MINOR CROW GICAL ORDERABLES * (ABNORMAL) POCT GLUCOSE, INTERFACED (12/01/2022 17:45 EDT) [facility] Glucose, POC 126(H) 70 - 100 mg/dL 12/01/2022 17:45 EDT [facility] HN LAB POC COMMENT (GLUCOSE) Test Performed in 2 [facility] 12/01/2022 17:45 EDT [facility] Blood CAPILLARY BLOOD / Unknown 12/01/2022 17:45 EDT 12/01/2022 17:45 EDT Estefanía Cleaning MD POINT OF CARE FUNMILAYO T ORDERABLES Performing Organization Address City/[facility]/ZIP Co de Phone Number [facility] [address] [place] [address] * (ABNORMAL) TROPONIN I (12/01/2022 16:30 EDT) Troponin I (ng/mL) 0.107(HH) <0.034 ng/mL 12/01/2022 17:07 EDT [facility] Blood VENOUS BLOOD / Unknown Venipuncture / Unknown 12/01/2022 16:30 EDT 12/01/2022 16:39 EDT Narrative [facility] - 12/01/2022 17:07 EDT The results of this assay can be falsely lowered due to the consumption of Biotin. Estefanía Cleaning MD CHEMISTRY & BLOOD GAS ORDERABLES Performing Organization Address [facility] Co de Phone Number [facility] [address] [place] [address] * XR CHEST PORTABLE 1 VIEW (12/01/2022 13:31 EDT) Anatomical Region Laterality Modality Computed Radiogr aphy 12/01/2022 13:4 8 EDT Impressions 12/01/2022 13:48 EDT Tiny right pleural effusion. Narrative 12/01/2022 13:48 EDT INDICATION: dry cough. COMPARISON: Chest x-ray 11/10/2022. TECHNIQUE: X-ray chest portable 1 view. FINDINGS: There is minimal blunting of the right lateral costophrenic angle consistent with tiny effusion. No pneumothorax is identified. The lungs are clear. The cardiomediastinal silhouette and pulmonary vasculature are within normal limits. Procedure Note Ed Dean MD - 12/01/2022 INDICATION: dry cough. COMPARISON: Chest x-ray 11/10/2022. TECHNIQUE: X-ray chest portable 1 view. FINDINGS: There is minimal blunting of the right lateral costophrenic angleconsistent with tiny effusion. No pneumothorax is identified. The lungsare clear. The cardiomediastinal silhouette and pulmonary vasculature arewithin normal limits. IMPRESSION Tiny right pleural effusion. Micah Camarillo MD IMG DIAGNOSTIC IMAGI NG ORDERABLES * (ABNORMAL) NT PRO BNP (12/01/2022 13:03 EDT) NT-pro BNP 3,200(H) <221 pg/mL 12/01/2022 13:47 EDT [facility] Comment: In the acute setting NT-proBNP values <300 pg/mL have a 98% NPV for excluding acute heart failure. In outpatient populations, NT-proBNP values <125 have a 99% NPV for excluding heart failure. Blood VENOUS BLOOD / Unknown Venipuncture / Unknown 12/01/2022 13:03 EDT 12/01/2022 13:14 EDT Micah Camarillo MD CHEMISTRY & BLOOD GA S ORDERABLES Performing Organization Address [facility] Co de Phone Number [facility] [address] [place] [address] * HOLD BLUE TOP (12/01/2022 13:03 EDT) Hold Hold 12/01/2022 14:15 EDT [facility] Blood VENOUS BLOOD / Unknown Venipuncture / Unknown 12/01/2022 13:03 EDT 12/01/2022 13:14 EDT Micah Camarillo MD LAB INFO SERVICE AND SUPPORT & PHONE RESULT Performing Organization Address [facility] Co de Phone Number [facility] [address] [place] [address] * (ABNORMAL) MAGNESIUM (12/01/2022 13:03 EDT) Magnesium 1.4(L) 1.7 - 2.8 mg/dL 12/01/2022 13:36 EDT [facility] Comment:Slight hemolysis fabiola ntified, interpret with caution as results may be affected due to hemolysis. Blood VENOUS BLOOD / Unknown Venipuncture / Unknown 12/01/2022 13:03 EDT 12/01/2022 13:14 EDT Micah Camarillo MD CHEMISTRY & BLOOD GA S ORDERABLES Performing Organization Address [facility] Co de Phone Number [facility] [address] [place] [address] * (ABNORMAL) TROPONIN I (12/01/2022 13:03 EDT) [facility] Troponin I (ng/mL) 0.090(HH) <0.034 ng/mL 12/01/2022 14:07 EDT [facility] Blood VENOUS BLOOD / Unknown Venipuncture / Unknown 12/01/2022 13:03 EDT 12/01/2022 13:14 EDT Narrative [facility] - 12/01/2022 14:07 EDT The results of this assay can be falsely lowered due to the consumption of Biotin. Micah Camarillo MD CHEMISTRY & BLOOD GA S ORDERABLES Performing Organization Address [facility] Number [facility] [address] [place] [address] * (ABNORMAL) BASIC METABOLIC PANEL (BMP) (12/01/2022 13:03 EDT) [facility] Sodium 137 136 - 145 mmol/L 12/01/2022 13:36 EDT [facility] Potassium 4.8 3.5 - 5.0 mmol/L 12/01/2022 13:36 EDT [facility] Comment:Slight hemolysis fabiola ntified, interpret with caution as hemolysis will elevate potassium result. Chloride 106 96 - 110 mmol/L 12/01/2022 13:36 EDT [facility] CO2 Total 20(L) 22 - 32 mmol/L 12/01/2022 13:36 EDT [facility] Anion Gap 11 5 - 14 mmol/L 12/01/2022 13:36 [facility] Glucose 272(H) 70 - 100 mg/dl 12/01/2022 13:36 [facility] Calcium 9.9 8.5 - 10.5 mg/dL 12/01/2022 13:36 [facility] BUN 10 10 - 26 mg/dL 12/01/2022 13:36 [facility] Comment: Slight hemolysis identified, interpret with caution as results may be affected due to hemolysis. Creatinine 0.77 0.52 - 1.04 mg/dL 12/01/2022 13:36 [facility] eGFR 83 >60 mL/min/1.7 3m2 12/01/2022 13:36 [facility] Blood VENOUS BLOOD / Unknown Venipuncture / Unknown 12/01/2022 13:03 EDT 12/01/2022 13:14 EDT Micah Camarillo MD CHEMISTRY & BLOOD GA S ORDERABLES [facility] [address] [place] [address] * (ABNORMAL) COMPLETE BLOOD COUNT AND DIFFERENTIAL (12/01/2022 13:03 EDT) WBC 8.07 4.00 - 12.40 K/cmm 12/01/2022 13:18 [facility] RBC 3.23(L) 3.86 - 5.04 M/cmm 12/01/2022 13:18 [facility] Hemoglobin 8.7(L) 11.6 - 15.2 g/dL 12/01/2022 13:18 [facility] HCT 28.0(L) 34.9 - 44.4 % 12/01/2022 13:18 [facility] MCV 87 81 - 98 fL 12/01/2022 13:18 [facility] MCH 26.9 26.7 - 33.3 pg 12/01/2022 13:18 [facility] MCHC 31.1(L) 32.1 - 35.9 g/dL 12/01/2022 13:18 [facility] RDW-CV 14.8(H) <14.7 % 12/01/2022 13:18 [facility] RDW-SD 46.4 <50.4 fl 12/01/2022 13:18 [facility] PLT 434(H) 141 - 377 K/cmm 12/01/2022 13:18 [facility] MPV 10.1 9.5 - 12.7 fL 12/01/2022 13:18 [facility] % Neutrophils 62.9 % 12/01/2022 13:18 [facility] % Lymphocytes 27.5 % 12/01/2022 13:18 [facility] % Monocytes 6.1 % 12/01/2022 13:18 [facility] % Eosinophils 2.2 % 12/01/2022 13:18 [facility] % Basophils 0.9 % 12/01/2022 13:18 [facility] % Immature Grans 0.4 % 12/02/19 13:18 [facility] Absolute Neutrophils 5.08 2.20 - 8.85 K/cmm 12/01/2022 13:18 [facility] Absolute Lymphocytes 2.22 1.09 - 3.30 K/cmm 12/01/2022 13:18 [facility] Absolute Monocytes 0.49 0.10 - 0.80 K/cmm 12/01/2022 13:18 [facility] Absolute Eosinophils 0.18 0.03 - 0.61 K/cmm 12/01/2022 13:18 [facility] ABS Basophils 0.07 0.01 - 0.11 K/cmm 12/01/2022 13:18 [facility] Absolute Immature Grans 0.03 0.00 - 0.06 K/cmm 12/01/2022 13:18 [facility] Type of Differential: Auto 12/01/2022 13:18 EDT [facility] Blood VENOUS BLOOD / Unknown Venipuncture / Unknown 12/01/2022 13:03 EDT 12/01/2022 13:14 EDT Micah Camarillo MD PACKAGES & DNA PROBE ORDERABLES [facility] [address] [place] [address] * EKG 12-LEAD (12/01/2022 12:40 EDT) 12/01/2022 12:4 0 EDT Narrative [facility] - 12/01/2022 13:48 EDT ? [facility] ? Test Date: ?2022-12-01 Pat Name: ? JOANNA GAUTAM ?Department: ? Room: ? C03 Gender: ? Female ? Pattern Cleaner: ?? JF : ?1950 ? Requested By: JUHI Germain Order Number: [id number] ? Oleksandr HAY: ?? AVIS ARGUETA MD ? Measurements Intervals ?[place] ? Rate: ? 72 ? P: ?41 OK: ? 328 ?QRS: ?-17 QRSD: ? 114 ?T: ?157 QT: ? 452 ? QTc: ?494 ? Interpretive Statements Sinus rhythm with sinus arrhythmia with 1st degree AV block Left ventricular hypertrophy with repolarization abnormality Prolonged QT Compared to ECG 11/20/2022 10:21:10 Prolonged QT interval now present I reviewed the tracing and have either agreed or edited the findings in this report. Electronically Signed On 12-01-2022 13:48:09 EDT by AVIS ARGUETA MD. Procedure Note Avis Argueta MD - 12/01/2022 [facility] Test Date: 2022-12-01 Pat Name: JOANNA HART Department: Room: 3 Gender: Female Pattern Cleaner: JF : 1950 Requested By: JUHI Germain Order Number: [id number] Oleksandr MD: AVIS ARGUETA MD Measurements Intervals [place] Rate: 72 P: 41 OK: 328 QRS: -17 QRSD: 114 T: 157 QT: 452 QTc: 494 Interpretive Statements Sinus rhythm with sinus arrhythmia with 1st degree AV block Left ventricular hypertrophy with repolarization abnormality Prolonged QT Compared to ECG 11/20/2022 10:21:10 Prolonged QT interval now present I reviewed the tracing and have either agreed or edited the findings inthis report. Electronically Signed On 12-01-2022 13:48:09 EDT by AVIS SCHULTE. Micah Camarillo MD CARDIAC ECG ORDERABL ES [facility] documented in this encounter Visit Diagnoses Diagnosis Acute heart failure, unspecified heart failure type (HCC-CMS)- Primary Acute heart failure, unspecified heart failure type (HCC-CMS) NSTEMI (non-ST elevated myocardial infarction) (HCC-CMS) Acute myocardial infarction, subendocardial infarction, episode of care unspecified Hypertrophic cardiomyopathy (HCC-CMS) Other hypertrophic cardiomyopathy Edema of right lower extremity Edema Acute on chronic heart failure with preserved ejection fraction (HFpEF) (HCC-CMS) NSTEMI (non-ST elevated myocardial infarction) (HCC-CMS) Acute myocardial infarction, subendocardial infarction, episode of care unspecified Edema of right lower extremity Edema documented in this encounter Admitting Diagnoses Diagnosis Acute on chronic heart failure with preserved ejection fraction (HFpEF) (HCC-CMS) documented in this encounter Administered Medications Inactive Administered Medications - up to 3 most recent administrations Medication Order MAR Action Action Date Dose Rate Site acetaminophen (TYLENOL) tablet 650 mg 650 mg, oral, EVERY 6 HOURS PRN, Starting on Wed12/02/22 at 1956, Until Wed12/03/22 at 2209, Mild Pain 1-3, Moderate Pain 4-6, Severe Pain 7-10, Routine Given 12/02/2022 20:14 EDT 650 mg apixaban (ELIQUIS) tablet 5 mg 5 mg, oral, 2 TIMES DAILY, First dose on Wed12/01/22 at 2100, Until Discontinued, Routine Given 12/03/2022 20:23 EDT 5 mg Given 12/03/2022 8:04 EDT 5 mg Given 12/02/2022 20:14 EDT 5 mg cholecalciferol (Vitamin D3) tablet 1,000 Units 1,000 Units, oral, DAILY, First dose on Wed12/02/22 at 0900, Until Discontinued, Routine Given 12/03/2022 8:04 EDT 1,000 Units cyanocobalamin (VITAMIN B-12) tablet 500 mcg 500 mcg, oral, DAILY, First dose on Wed12/02/22 at 0900, Until Discontinued, Routine Given 12/03/2022 8:04 EDT 500 mcg Given 12/02/2022 9:24 EDT 500 mcg dextrose 40% gel 15 g of glucose 15 g of glucose, oral, PRN, Starting on Wed12/01/22 at 1726, Until Wed12/03/22 at 2209, Low Blood Sugar, Routine dextrose 50 % solution 12.5 g 12.5 g, intravenous, PRN, Starting on Wed12/01/22 at 1726, Until Wed12/03/22 at 2209, Low Blood Sugar, Routine furosemide (LASIX) injection 20 mg 20 mg, intravenous, NOW X1, 1 dose, On Wed12/01/22 at 1800, Routine Given 12/01/2022 18:27 EDT 20 mg furosemide (LASIX) injection 20 mg 20 mg, intravenous, 2 TIMES DAILY (0800 & 1400), First dose on Wed12/02/22 at 0815, Until Discontinued, Routine Given 12/03/2022 13:13 EDT 20 mg Given 12/03/2022 8:07 EDT 20 mg Given 12/02/2022 12:01 EDT 20 mg gabapentin (NEURONTIN) capsule 600 mg 600 mg, oral, 2 TIMES DAILY, First dose on Wed12/01/22 at 2100, Until Discontinued, Routine Given 12/03/2022 20:24 EDT 6 00 mg Given 12/03/2022 8:04 EDT 600 mg Given 12/02/2022 20:13 EDT 600 mg insulin glargine (LANTUS SOLOSTAR/SEMGLEE) injection pen 31 Units 31 Units, subcutaneous, DAILY, First dose on Wed12/02/22 at 0900, Until Discontinued, Routine Given 12/03/2022 11:19 EDT 31 Units insulin lispro (HUMALOG KWIKPEN) injection pen subcutaneous, 3 TIMES DAILY WITH MEALS, First dose on Wed12/01/22 at 1830, Until Discontinued Given 12/03/2022 17:17 EDT Given 12/03/2022 12:16 EDT Given 12/03/2022 8:07 EDT 2 Units insulin lispro (HUMALOG KWIKPEN) injection pen subcutaneous, AT BEDTIME, First dose on Wed12/01/22 at 2100, Until Discontinued Given 12/03/2022 21:00 EDT Given 12/02/2022 21:02 EDT 2 Units loratadine (CLARITIN) tablet 10 mg 10 mg, oral, DAILY, First dose on Wed12/02/22 at 0900, Until Discontinued Given 12/03/2022 8:04 EDT 10 mg Given 12/02/2022 9:24 EDT 10 mg magnesium oxide (MAG-OX) tablet 400 mg 400 mg, oral, DAILY, First dose on Wed12/02/22 at 0900, Until Discontinued, Routine Given 12/03/2022 8:04 EDT 400 mg Given 12/02/2022 9:24 EDT 400 mg magnesium sulfate 2 g in water 50 mL 2 g, intravenous, Administer over 60 Minutes, NOW X1, 1 dose, On Wed12/01/22 at 1430, STAT New Bag 12/01/2022 14:16 EDT 2 g metoprolol TARtrate (LOPRESSOR) tablet 12.5 mg 12.5 mg, oral, DAILY, First dose on Wed12/02/22 at 0900, Until Discontinued, Routine Given 12/03/2022 8:03 EDT 12 .5 mg Given 12/02/2022 9:24 EDT 12.5 mg nitroglycerin (NITROSTAT) SL tablet 0.4 mg 0.4 mg, sublingual, EVERY 5 MIN PRN, Starting on Wed12/03/22 at 0723, Until Wed12/03/22 at 2209, Chest Pain, Routine Given 12/03/2022 7:26 EDT 0.4 mg pantoprazole (PROTONIX) tablet 40 mg 40 mg, oral, 2 TIMES DAILY, First dose on Wed12/01/22 at 2100, Until Discontinued, Routine Given 12/03/2022 20:23 EDT 4 0 mg Given 12/03/2022 8:04 EDT 40 mg Given 12/02/2022 20:14 EDT 40 mg documented in this encounter Historical Medications * This list may reflect changes made after this encounter. Medication Sig Dispensed Refills Start Date End Date apixaban (ELIQUIS) 5 mg tablet Take 1 Tablet by mouth 2 times daily. 12/09/2022 added in this encounter Active and Recently Administered Medications Times are shown in EDT. Scheduled Medication Order 12/01/2022 12/02/2022 12/03/2022 apixaban (ELIQUIS) tablet 5 mg 5 mg, oral, 2 TIMES DAILY, First dose on Wed12/01/22 at 2100, Until Discontinued, Routine 2016 (Given - Provider: Cj Olvera RN) 923 (Given - Provider: Zully Meltno, JALEN)2013 (Given - Provider: Cj Olvera RN) 803 (Given - Provider: Miriam Tran RN)2022 (Given - Provider: Deepali Phelps RN) cholecalciferol (Vitamin D3) tablet 1,000 Units 1,000 Units, oral, DAILY, First dose on Wed12/02/22 at 0900, Until Discontinued, Routine 0944 (Not Given - Provider: Zully Melton RN - Reason: Other - Comment: Not verified by pharmacy) 08 (Given - Provider: Miriam Tran RN) cyanocobalamin (VITAMIN B-12) tablet 500 mcg 500 mcg, oral, DAILY, First dose on Wed12/02/22 at 0900, Until Discontinued, Routine 0924 (Given - Provider: Zully Melton RN) 0804 (Given - Provider: Miriam Tran RN) furosemide (LASIX) injection 20 mg (COMPLETED) 20 mg, intravenous, NOW X1, 1 dose, On Wed12/01/22 at 1800, Routine 1827 (Given - Provider: Zully Melton, JALEN) furosemide (LASIX) injection 20 mg 20 mg, intravenous, 2 TIMES DAILY (0800 & 1400), First dose on Wed12/02/22 at 0815, Until Discontinued, Routine 1201 (Given - Provider: Zully Melton RN - Comment: Pt IV leaking. IV placed and then pt left floor for US. Per Dr. Liang give this dose and hold 1400 dose.)1314 (Not Given - Provider: Zully Melton RN - Reason: Other - Comment: Last dose given late. Hold per Dr. Liang.) 0807 (Given - Provider: Miriam Tran RN)1313 (Given - Provider: Miriam Tran RN) gabapentin (NEURONTIN) capsule 600 mg 600 mg, oral, 2 TIMES DAILY, First dose on Wed12/01/22 at 2100, Until Discontinued, Routine 2016 (Given - Provider: Cj Olvera RN) 09 (Given - Provider: Zully Melton RN)2012 (Given - Provider: Cj Olvera RN) 08 (Given - Provider: Miriam Tran RN)2023 (Given - Provider: Deepali Phelps, JALEN) insulin glargine (LANTUS SOLOSTAR/SEMGLEE) injection pen 31 Units 31 Units, subcutaneous, DAILY, First dose on Wed12/02/22 at 0900, Until Discontinued, Routine 943 (Not Given - Provider: Zully Melton RN - Reason: Patient/family refused - Comment: Pt NPO. BS 142. Hold per Dr. Liang.) 1119 (Given - Provider: Miriam Tran RN - Comment: Pharmacy delayed bringing medication to floor) insulin lispro (HUMALOG KWIKPEN) injection pen subcutaneous, 3 TIMES DAILY WITH MEALS, First dose on Wed12/01/22 at 1830, Until Discontinued 182 (Not Given - Provider: Zully Melton RN - Reason: Order parameters not met) 0806 (Not Given - Provider: Zully Melton RN - Reason: Order parameters not met)1159 (Not Given - Provider: Zully Melton RN - Reason: Order parameters not met)1722 (Given - Provider: Zully Melton RN) 0807 (Given - Provider: Miriam Tran RN)1216 (Given - Provider: Miriam Tran RN)1717 (Given - Provider: Miriam Tran RN) insulin lispro (HUMALOG KWIKPEN) injection pen subcutaneous, AT BEDTIME, First dose on Wed12/01/22 at 2100, Until Discontinued 2018 (Not Given - Provider: Cj Olvera RN - Reason: Order parameters not met) 2101 (Given - Provider: Cj Olvera RN) 2099 (Given - Provider: Deepali Phelps RN) loratadine (CLARITIN) tablet 10 mg 10 mg, oral, DAILY, First dose on Wed12/02/22 at 0900, Until Discontinued 923 (Given - Provider: Zully Melton RN) 08 (Given - Provider: Miriam Tran RN) magnesium oxide (MAG-OX) tablet 400 mg 400 mg, oral, DAILY, First dose on Wed12/02/22 at 0900, Until Discontinued, Routine 923 (Given - Provider: Zully Melton RN) 08 (Given - Provider: Miriam Tran RN) magnesium sulfate 2 g in water 50 mL (COMPLETED) 2 g, intravenous, Administer over 60 Minutes, NOW X1, 1 dose, On Wed12/01/22 at 1430, STAT 1416 (New Bag - Provider: Jeremiah Arce RN)1445 (Completed - Provider: Kan Crews RN) metoprolol TARtrate (LOPRESSOR) tablet 12.5 mg 12.5 mg, oral, DAILY, First dose on Wed12/02/22 at 0900, Until Discontinued, Routine 923 (Given - Provider: Zully Melton RN) 08 (Given - Provider: Miriam Tran RN) pantoprazole (PROTONIX) tablet 40 mg 40 mg, oral, 2 TIMES DAILY, First dose on Wed12/01/22 at 2100, Until Discontinued, Routine 2016 (Given - Provider: Cj Olvera RN) 923 (Given - Provider: Zully Melton RN)2013 (Given - Provider: Cj Olvera RN) 803 (Given - Provider: Miriam Tran RN)2022 (Given - Provider: Deepali Phelps RN) PRN Medication Order 12/01/2022 12/02/2022 12/03/2022 acetaminophen (TYLENOL) tablet 650 mg 650 mg, oral, EVERY 6 HOURS PRN, Starting on Wed12/02/22 at 1956, Until Wed12/03/22 at 2209, Mild Pain 1-3, Moderate Pain 4-6, Severe Pain 7-10, Routine 2013 (Given - Provider: Cj Olvera RN) calcium carbonate (TUMS) tablet 500 mg (200 mg elemental calcium) 2 Tablet 2 Tablet, oral, EVERY 6 HOURS PRN, Starting on Wed12/01/22 at 1740, Until Wed12/03/22 at 2209, Indigestion, Routine dextrose 40% gel 15 g of glucose 15 g of glucose, oral, PRN, Starting on Wed12/01/22 at 1726, Until Wed12/03/22 at 2209, Low Blood Sugar, Routine dextrose 50 % solution 12.5 g 12.5 g, intravenous, PRN, Starting on Wed12/01/22 at 1726, Until Wed12/03/22 at 220, Low Blood Sugar, Routine lidocaine (PF) 10 mg/mL (1 %) injection 2 mg 2 mg, intradermal, PRN, 4 doses, Starting on Wed12/01/22 at 1740, Until Wed12/03/22 at 220, peripheral intravenous catheter placement, Routine nitroglycerin (NITROSTAT) SL tablet 0.4 mg 0.4 mg, sublingual, EVERY 5 MIN PRN, Starting on Wed12/03/22 at 0723, Until Wed12/03/22 at 220, Chest Pain, Routine 07 (Given - Provid er: Miriam Tran RN) polyethylene glycol 3350 (MIRALAX) packet 17 g 17 g, oral, DAILY PRN, Starting on Wed12/01/22 at 1740, Until Wed12/03/22 at 220, Constipation, Routine ramelteon (ROZEREM) tablet 8 mg 8 mg, oral, AT BEDTIME PRN, Starting on Wed12/01/22 at 1740, Until Wed12/03/22 at 2209, Sleep, Routine senna (SENOKOT) tablet 2 Tablet 2 Tablet, oral, AT BEDTIME PRN, Starting on Wed12/01/22 at 1740, Until Wed12/03/22 at 2209, Constipation, Routine documented in this encounter Orders Medications Ordered That Guy ht Not Have Been Administered Count Last Ordered Date First Ordered Date calcium carbonate (TUMS) tab let 500 mg (200 mg elemental calcium) 2 Tablet 1 12/01/2022 dextrose 40% gel 15 g of glucose 12/02/19 dextrose 50 % solution 12.5 g 12/01/2022 lidocaine (PF) 10 mg/mL (1 % ) injection 2 mg 12/01/2022 polyethylene glycol 3350 (NH RALAX) packet 17 g 1 12/01/2022 ramelteon (ROZEREM) tablet 8 mg 1 3 senna (SENOKOT) tablet 2 Tablet 1 3 Nursing Count Last Ordered Date First Orde red Date CALL HOSPITALIST FOR ADM/REF REUBEN TO [facility] NURSE 1 12/01/2022 CALL PHYSICIAN SPECIALTY CONSULT 1 12/02/19 Admission Count Last Ordered Date First Orde red Date ADMIT TO INPATIENT 1 12/01/2022 Transfer Count Last Ordered Date First Orde red Date CONSULT RTC (TRANSFER/CONSUL T TO OTHER FACILITY) 1 12/02/2022 ED BED REQUEST 1 12/01/2022 Discharge Count Last Ordered Date First Orde red Date DISCHARGE PATIENT 1 12/03/2022 documented in this encounter Care Teams Therapeutic Strategy Lead Relationship Specialty Start Date End Date Bryant Crain MD [address] [place], [place] [id number] PCP - General 05/04/15 05/17/23 Carlos Ha NP [address] [place] [address] [address] [place] [id number] Consulting Clinician Cardiovascular Disease 09/14/21 documented as of this encounter
--- OUTSIDE RECORDS SUMMARY | 2024-01-07 11:13 | XMS_ITS | Encounter Summary ---
Author Organization [facility] Address [address] [place] [address] Care Team Providers Care Rehab Therapist Name Role Phone Bryant Crain MD Primary Care Provider [phone] Carlos Ha VICE PRESIDENT SALES AND MARKETING Unavailable Encounter Details Date Type Department Care Team (Late st Contact Info) Description 11/15/2022 Orders Only [facility] Rad[facility] - [facility] [address] [place] [address] Stanislav Erickson MD [address] [facility], Level 1 [place] [address] Social History Tobacco Use Types Packs/Day Years [...] No 11/11/2022 Cognitive Status Response Date of Assess ent Because of a physical, menta l, or emotional condition, do you have serious difficulty concentrating, remembering, or making decisions? (5 years old or older) No 11/11/2022 documented as of this encounter Plan of Treatment Upcoming Encounters Date Type Department Care Team (Late st Contact Info) Description 03/08/2024 9:30 EDT Ancillary Procedure [facility] Cardiology - [address] [place], [place] [phone] 03/08/2024 10:15 EDT Ancillary Procedure [facility] Cardiology [address] [place] [address] 04/05/2024 10:00 EDT Ancillary Procedure [facility] Cardiology Clinic [address] [place] [address] [id number] 04/05/2024 10:00 EDT Office Visit [facility] Cardiology Clinic [address] [place] [address] [phone] Carlos Ha NP [address] [place] [address] [address] [place] [phone] documented as of this encounter Visit Diagnoses Not on filedocumented in this encounter Care Teams Rehab Therapist Relationship Specialty Start Date End Date Bryant Crain MD [address] [place], [place] [id number] PCP - General 05/04/15 05/17/23 Carlos Ha NP [address] [place] [address] [address] [place] [address] Consulting Clinician Cardiovascular Disease 09/14/21 documented as of this encounter
--- OUTSIDE RECORDS SUMMARY | 2024-01-07 11:13 | XMS_ITS | Encounter Summary ---
Author Organization [facility] Address [address] [place] [address] Care Team Providers Care Forensic Analyst Name Role Phone Bryant Crain MD Primary Care Provider [phone] Carlos Ha [employer] NETWORK ARCHITECT Unavailable [phone] Encounter Details Date Type Department Care Team (Latest Contact Info) Description 12/01/2022 Travel Social History Tobacco Use Types Packs/Day Years [...] Yes 12/01/2022 documented as of this encounter Plan of Treatment Upcoming Encounters Date Type Department Care Team (Late st Contact Info) Description 03/08/2024 9:30 EDT Ancillary Procedure [facility] Cardiology - [place] [address] [place] [address] 03/08/2024 10:15 EDT Ancillary Procedure [facility] Cardiology - [facility] [address] [facility] [place] [address] 04/05/2024 10:00 EDT Ancillary Procedure [facility] [address] [place] [address] [phone] 04/05/2024 10:00 EDT [facility] [address] [place] [address] Carlos Ha NP [address] [place] [phone] documented as of this encounter Visit Diagnoses Not on filedocumented in this encounter Care Teams Forensic Analyst Relationship Specialty Start Date End Date Bryant Crain MD [address] [place], [place] [phone] PCP - General 05/04/15 05/17/23 Carlos Ha NP [address] [place] [phone] Consulting Clinician Cardiovascular Disease 09/14/21 documented as of this encounter
--- OUTSIDE RECORDS SUMMARY | 2024-01-07 11:13 | XMS_ITS | Encounter Summary ---
Author Organization [facility] Address [address] [place] [address] Care Team Providers Care Online Content Developer Name Role Phone Bryant Crain MD Primary Care Provider [phone] Carlos Ha FILLER SPREADER Unavailable [phone] Reason for Visit * Reason Onset Date Comments Shortness of Breath 12/01/2022 Chest Pain 12/01/2022 Encounter Details Date Type Department Care Team (Late st Contact Info) Description 12/01/2022 Telephone [facility] Cardiology Clinic [address] [place] [phone] Fan Schaefer RN Shortness of Breath; Chest Pain Social History Tobacco Use Types Packs/Day Years [...] Yes 12/01/2022 documented as of this encounter Miscellaneous Notes * Telephone Encounter - Carlos Ha NP - 12/01/2022 2130 EDT Patient admitted for HF * Telephone Encounter - Fan Schaefer RN - 12/01/2022 1050 EDT Spoke with Carlos Ha APRN who advises: * Pt should go to local ED or [facility] with goal to be transferred to [facility] likely for heart cath. [id number] if needed. * Pt is scheduled to see at [facility] and have Cardiac MRI soon. Has been wearing event monitor with episodes of Ventricular Tachycardia and heart block with some pauses Relayed recommendations to patient and : * They are planning on driving to [facility] ED * Advised to call 911 for any concerns * Called report to ED RN at [facility] * Telephone Encounter - Fan Schaefer RN - 12/01/2022 1027 EDT Patient's and patient calling with concerns: * Pt reporting increased RODRIGUEZ and orthopnea x 3 days with inability to lay down to sleep. Has developed a dry cough in same timeframe. * Has had 3 lb wgt gain over past 3 days without edema and lungs are clear but slightly diminished bilaterally (per home health who is at home when they called) * Reports intermittent/recurrent central chest tightness that comes on several times per day over the past 3 days, lasts for 2-3 minutes before going away, but returns frequently during day/night regardless of activity or position. Not reproducible. * HR 82, BP 145/70, SPO2 94%, T- 98 degrees Routing to Carlos Ha APRN. documented in this encounter Plan of Treatment Upcoming Encounters Date Type Department Care Team (Late st Contact Info) Description 03/08/2024 9:30 EDT Ancillary Procedure [facility] Cardiology - [address] [place] [address] 03/08/2024 10:15 EDT Ancillary Procedure [facility] Cardiology [address] [place], [place] [phone] 04/05/2024 10:00 EDT Ancillary Procedure [facility] Cardiology Clinic [address] [place] [address] 04/05/2024 10:00 EDT Office Visit [facility] Cardiology Clinic [address] [place] [address] [phone] Carlos Ha NP [address] [place] [phone] documented as of this encounter Visit Diagnoses Not on filedocumented in this encounter Care Teams Online Content Developer Relationship Specialty Start Date End Date Bryant Crain MD [address] [place] [address] PCP - General 05/04/15 05/17/23 Carlos Ha NP [address] [place] [phone] Consulting Clinician Cardiovascular Disease 09/14/21 documented as of this encounter
--- OUTSIDE RECORDS SUMMARY | 2024-01-07 11:13 | XMS_ITS | Encounter Summary ---
Author Organization [facility] Address [address] [place] [address] Care Team Providers Care Autoclave Operator Name Role Phone Bryant Crain MD Primary Care Provider [phone] Carlos Ha INVENTORY CONTROL ASSISTANT Unavailable [phone] Reason for Visit * Reason Onset Date Comments Results 11/23/2022 Encounter Details Date Type Department Care Team (Late st Contact Info) Description 11/23/[address] [facility] Cardiology - [address] [place] [address] Nicole Acosta MD Results Social [...] encounter Miscellaneous Notes * Telephone Encounter - Nicole Acosta MD - 11/23/2022 1111 EDT Urgent event monitor notification - 11/22/2022 at 10:14am: Sinus rhythm/bradycardia with IVCD, PVCs, and 6-beat run of NSVT -- unable to determine if NSVT or abberrant atrial run (does not change axis; monomorphic PVCs do change axis). Asymptomatic, auto-triggered. No action taken, continue to monitor. NICOLE ACOSTA MD 11/23/2022 11:11 Mold Designer documented in this encounter Plan of Treatment Upcoming Encounters Date Type Department Care Team (Late st Contact Info) Description 03/08/2024 9:30 EDT Ancillary Procedure [facility] Cardiology - [place] [address] [place] [address] 03/08/2024 10:15 EDT Ancillary Procedure [facility] Cardiology - [facility] [place] [address] 04/05/2024 10:00 EDT Ancillary Procedure [facility] Cardiology Clinic [address] [place] [phone] 04/05/2024 10:00 EDT Office Visit [facility] Cardiology Clinic [address] [place] [address] [phone] Carlos Ha, RAHEEM [address] [place] [address] [address] [place] [phone] documented as of this encounter Visit Diagnoses Not on filedocumented in this encounter Care Teams Autoclave Operator Relationship Specialty Start Date End Date Bryant Crain MD [address] [place], [place] [phone] PCP - General 05/04/15 05/17/23 Carlos Ha NP [address] [place] [address] [address] [place] [address] Consulting Clinician Cardiovascular Disease 09/14/21 documented as of this encounter
--- OUTSIDE RECORDS SUMMARY | 2024-01-07 11:13 | XMS_ITS | Encounter Summary ---
Author Organization [facility] Address [address] [place] [address] Care Team Providers Care Lofter Name Role Phone Bryant Crain MD Primary Care Provider [phone] Carlos Ha FUR STYLIST Unavailable [phone] Encounter Details Date Type Department Care Team (Late st Contact Info) Description 11/20/2022 9:[address] [facility] - Outpatient Phlebotomy Drawing [address] [place] [address] Lab, [facility] Op Phlebotomy Gastrointestinal hemorrhage, unspecified gastrointestinal hemorrhage type; Duodenal erosion; Esophagitis; Essential hypertension Social History Tobacco Use Types Packs/Day Years [...] 03/08/2024 9:30 EDT Ancillary Procedure [facility] Cardiology - [place] [address] [place] [address] 03/08/2024 10:15 EDT Ancillary Procedure [facility] Cardiology [address] [place] [address] 04/05/2024 10:00 EDT Ancillary Procedure [facility] Cardiology Clinic [address] [place] [address] [phone] 04/05/2024 10:00 EDT Office Visit [facility] Cardiology Clinic [address] [place] [address] [phone] Carlos Ha, RAHEEM [address] [place] [address] [place] [phone] documented as of this encounter Procedures Procedure Name Priority Date/Time Associated Diagnosis Comments TRANSFERRIN SATURATION Add-On 11/20/2022 10:02 EDT Gastrointestinal hemorrhage, unspecified gastrointestinal hemorrhage type COMPLETE BLOOD COUNT AND DIFFERENTIAL Routine 11/20/2022 10:02 EDT Gastrointestinal hemorrhage, unspecified gastrointestinal hemorrhage type Duodenal erosion Esophagitis BASIC METABOLIC PANEL (BMP) Routine 11/20/2022 10:02 EDT Essential hypertension documented in this encounter Results * (ABNORMAL) TRANSFERRIN SATURATION (11/20/2022 10:02 EDT) Iron 34(L) 37 - 170 ??g/dL [facility] Iron Binding Capacity 315 240 - 450 ??g/dL 11/20/2022 15:41 [facility] Transferrin Saturation 11(L) 15 - 45 % 11/20/2022 15:41 [facility] Blood VENOUS BLOOD / Unknown Venipuncture / Unknown 11/20/2022 10:02 EDT 11/20/2022 10:44 EDT Carlos Ha NP CHEMISTRY & BLOOD GA S ORDERABLES Performing Organization Address City/State/[facility] Co de Phone Number [facility] [address] [place] [address] * (ABNORMAL) BASIC METABOLIC PANEL (BMP) (11/20/2022 10:02 EDT) Pathologist [facility] Sodium 139 136 - 145 mmol/L 11/20/2022 11:14 [facility] Potassium 4.8 3.5 - 5.0 mmol/L 11/20/2022 11:14 [facility] Chloride 108 96 - 110 mmol/L 11/20/2022 11:14 [facility] CO2 Total 23 22 - 32 mmol/L 11/20/2022 11:14 [facility] Anion Gap 8 5 - 14 mmol/L 11/20/2022 11:14 [facility] Glucose 177(H) 70 - 100 mg/dl 11/20/2022 11:14 [facility] Calcium 10.0 8.5 - 10.5 mg/dL 11/20/2022 11:14 [facility] BUN 11 10 - 26 mg/dL 11/20/2022 11:14 [facility] Creatinine 0.84 0.52 - 1.04 mg/dL 11/20/2022 11:14 [facility] eGFR 75 >60 mL/min/1.73 m2 11/20/2022 11:14 [facility] Blood VENOUS BLOOD / Unknown Venipuncture / Unknown 11/20/2022 10:02 EDT 11/20/2022 10:44 EDT Carlos L Dilcia FUR STYLIST CHEMISTRY & BLOOD GA S ORDERABLES Performing Organization Address City/State/[facility] Co de Phone Number [facility] [address] [place] [address] * (ABNORMAL) COMPLETE BLOOD COUNT AND DIFFERENTIAL (11/20/2022 10:02 EDT) WBC 7.59 4.00 - 12.40 K/cmm 11/20/2022 10:39 [facility] RBC 2.96(L) 3.86 - 5.04 M/cmm 11/20/2022 10:39 [facility] Hemoglobin 8.7(L) 11.6 - 15.2 g/dL 11/20/2022 10:39 [facility] HCT 26.9(L) 34.9 - 44.4 % 11/20/2022 10:39 [facility] MCV 91 81 - 98 fL 11/20/2022 10:39 [facility] MCH 29.4 26.7 - 33.3 pg 11/20/2022 10:39 [facility] MCHC 32.3 32.1 - 35.9 g/dL 11/20/2022 10:39 [facility] RDW-CV 14.8(H) <14.7 % 11/20/2022 10:39 [facility] RDW-SD 47.4 <50.4 fl 11/20/2022 10:39 [facility] PLT 393(H) 141 - 377 K/cmm 11/20/2022 10:39 [facility] MPV 11.0 9.5 - 12.7 fL 11/20/2022 10:39 [facility] % Neutrophils 62.6 % 11/20/2022 10:39 [facility] % Lymphocytes 27.1 % 11/20/2022 10:39 [facility] % Monocytes 7.4 % 11/20/2022 10:39 [facility] % Eosinophils 2.0 % 11/20/2022 10:39 [facility] % Basophils 0.5 % 11/20/2022 10:39 [facility] % Immature Grans 0.4 % 11/21/19 10:39 [facility] Absolute Neutrophils 4.75 2.20 - 8.85 K/cmm 11/20/2022 10:39 [facility] Absolute Lymphocytes 2.06 1.09 - 3.30 K/cmm 11/20/2022 10:39 [facility] Absolute Monocytes 0.56 0.10 - 0.80 K/cmm 11/20/2022 10:39 [facility] Absolute Eosinophils 0.15 0.03 - 0.61 K/cmm 11/20/2022 10:39 [facility] ABS Basophils 0.04 0.01 - 0.11 K/cmm 11/20/2022 10:39 [facility] Absolute Immature Grans 0.03 0.00 - 0.06 K/cmm 11/20/2022 10:39 [facility] Type of Differential: Auto 11/20/2022 10:39 [facility] Blood VENOUS BLOOD / Unknown Venipuncture / Unknown 11/20/2022 10:02 EDT 11/20/2022 10:35 EDT Carlos Ha NP PACKAGES & DNA PROBE ORDERABLES [facility] [address] [place] [address] documented in this encounter Visit Diagnoses Diagnosis Gastrointestinal hemorrhage, unspecified gastrointestinal hemorrhage type Duodenal erosion Duodenal ulcer, unspecified as acute or chronic, without hemorrhage, perforation, or obstruction Esophagitis Esophagitis, unspecified Essential hypertension Unspecified essential hypertension documented in this encounter Care Teams Lofter Relationship Specialty Start Date End Date Bryant Crain MD [address] [place], [place] [phone] PCP - General 05/04/15 05/17/23 Carlos Ha NP [address] [place] [address] [address] [place] [phone] Consulting Clinician Cardiovascular Disease 09/14/21 documented as of this encounter
--- OUTSIDE RECORDS SUMMARY | 2024-01-07 11:14 | XMS_ITS | Encounter Summary ---
Author Organization [facility] Address [address] [place] [address] Care Team Providers Care Inserting Machine Operator Name Role Phone Bryant Crain MD Primary Care Provider Reason for Visit * Reason Comments Other device battery deple tion Encounter Details Date Type Department Care Team (Late st Contact Info) Description 04/09/2021 External Contact [facility] [address] [place] [address] Hayde Paul MD [address] [facility] [address] [place] [phone] Encounter for loop recorder at end of battery life (Primary Dx) Social History Tobacco Use Types [...] Functional Status Response Date of Assess ment Because of a physical, menta l, or emotional condition, does this person have difficulty doing errands alone such as visiting a doctor's office or shopping? Yes 11/23/2019 Cognitive Status Response Date of Assessm ent Because of a physical, menta l, or emotional condition, does this person have serious difficulty concentrating, remembering, or making decisions? Yes 11/23/2019 documented as of this encounter Progress Notes * Hayde Paul MD - 04/09/2021 4118 EDT [facility] Cardiology/Electrophysiology Operative Note Patient: Joanna HART Date of : 1950 Date of Service: 04/09/2021 Preoperative diagnosis: Implanted personnel monitor battery depletion Postoperative diagnosis: Implanted personnel monitor battery depletion Procedure: Implanted personnel monitor (Medtronic Reveal LINQ) explant Processing Tech: Hayde Paul MD Anesthesia: Local Preprocedure antibiotics: None Fluoroscopy: None Estimated blood loss less than 10 mL Specimens: none Drains: none Complications: none Indication for procedure: Device battery depletion Procedure in detail: The patient was brought to the procedure room in a fasting state and informed consent was obtained. A timeout was performed and the patient was prepped and draped in the usual sterile manner. The left parasternal region was locally anesthetized and an incision was made through the previous incision scar. A very dense scar capsule was found. Using blunt and sharp dissection, the device (Medtronic Reveal LINQ) was accessed without problems and explanted. Manual pressure was held for 5 minutes for hemostasis. The incision was then closed with a single horizontal suture using4-0 Biosyn suture material. The skin was then closed with Dermabond skin glue. Summary: Successful explantation of a Medtronic Reveal LINQ implanted personnel monitor. CPT 58261. Hayde Paul MD documented in this encounter Plan of Treatment Upcoming Encounters Date Type Department Care Team (Late st Contact Info) Description 03/08/2024 9:30 EDT Ancillary Procedure [facility] Cardiology [facility] [place] [address] 03/08/2024 10:15 EDT Ancillary Procedure [facility] Cardiology [facility] [place] [address] 04/05/2024 10:00 EDT Ancillary Procedure [facility] Cardiology Clinic [address] [place] [address] 04/05/2024 10:00 EDT Office Visit [facility] Cardiology Clinic [address] [place], [place] [phone] Carlos Ha NP [address] [facility] [address] [place] [address] documented as of this encounter Visit Diagnoses Diagnosis Encounter for loop recorder at end of battery life- Primary Fitting and adjustment of other cardiac device documented in this encounter Care Teams Inserting Machine Operator Relationship Specialty Start Date End Date Bryant Crain MD [address] [place] [address] PCP - General 05/04/15 05/17/23 documented as of this encounter
--- OUTSIDE RECORDS SUMMARY | 2024-01-07 11:14 | XMS_ITS | Encounter Summary ---
Author Organization [facility] Address [address] [place] [address] Care Team Providers Care Electronics Recycler Name Role Phone Bryant Crain MD Primary Care Provider [phone] Carlos Macario GENERAL PRODUCTION MANAGER Unavailable [phone] Reason for Referral * Follow Up (Urgent) - New Request Specialty Diagnoses / Procedures Referred By Contac t Referred To Contact Diagnoses Gastrointestinal hemorrhage, unspecified gastrointestinal hemorrhage type NSTEMI (non-ST elevated myocardial infarction) (HCC-CMS) Acute blood loss anemia Hypertrophic cardiomyopathy (HCC-CMS) NSVT (nonsustained ventricular tachycardia) (FORMERLY [facility]) Shawna Terry MD MPH [address] [phone] Bryant Crain MD [address] [place] [id number] Referral ID Status Reason Start Date Expiration Date Visits Requested Visits Authorized [id number] New Request Continuity of Care 11/14/2022 1 1 Question Answer Reason for Request: hospital discharge follow up, acute GI bleed, concern for hypertrophic cardiomyopathy * Referral (Urgent) - New Request Specialty Diagnoses / Procedures Referred By Contac t Referred To Contact Diagnoses Gastrointestinal hemorrhage, unspecified gastrointestinal hemorrhage type NSTEMI (non-ST elevated myocardial infarction) (HCC-CMS) Hypertrophic cardiomyopathy (HCC-CMS) Shawna Terry MD MPH [address] [phone] - [place] [address] [place] [address] Referral ID Status Reason Start Date Expiration Date Visits Requested Visits Authorized [id number] New Request Specialty Services Required 11/14/2022 1 1 Question Answer I certify that this patient is under my care and that I, or another Medicare allowed practitioner (DO SATNAM, CONOR) working with me, had a [id number] encounter with this patient on this date: 11/14/2022 The discharge summary or progress note will provide further details that support the need for the home health services and the plan of care. Yes Enter the allowed practitioner (DO SATNAM, CONOR) who will provide oversight of this patient's home heatlh care needs and plan of care Bryant Paras Some payers require a patient to be homebound to qualify for home health services. Homebound definition: Absences from home are infrequent or for relatively short duration (such as for medical appointments). Is patient HOMEBOUND? Yes The patient? s homebound status is related to the following diagnoses, illness or condition (describe): acute GI bleed, hypertrophic cardiomyopathy The patient has a condition due to an illness or injury that restricts the ability to leave home except with: Assistance/Support device Assistive device Walker Leaving home requires a considerable and taxing effort with mobility limited by the following (criteria 1): Impaired endurance Leaving home requires a considerable and taxing effort with mobility limited by the following (criteria 2): Impaired strength Skilled care requested: Acute therapies (includes PT, ROLLER MILL TENDER) Therapies skilled care requested: Physical Therapy Physical therapy is needed for: Evaluation, Strength Training/Exercise Program, Safety * Consult (Urgent) - Authorization Not Required Specialty Diagnoses / Procedures Referred By Contac t Referred To Contact Cardiology Diagnoses NSTEMI (non-ST elevated myocardial infarction) (HCC-CMS) Hypertrophic cardiomyopathy (HCC-CMS) NSVT (nonsustained ventricular tachycardia) (HCC-CMS) Shawna Terry MD MPH [address] [phone] [facility] [address] [place] [address] Referral ID Status Reason Start Date Expiration Date Visits Requested Visits Authorized [id number] Authorization Not Required Specialty Services Required 3 1 1 Question Answer Reason for Request: inpatient team requested referral for hx NSVT, HCM, genetic eval for HCM * Cardiology (Routine/Next Available) - Authorized Specialty Diagnoses / Procedures Referred By Contac t Referred To Contact Diagnoses NSTEMI (non-ST elevated myocardial infarction) (HCC-CMS) Hypertrophic cardiomyopathy (HCC-CMS) NSVT (nonsustained ventricular tachycardia) (HCC-CMS) Procedures CARDIAC EVENT MONITOR NE XTRNL MOBILE CV TELEMETRY W/I&REPORT 30 DAYS NE XTRNL PT ACTIVTD ECG DWNLD W/R&I </30 DAYS Shawna Terry MD MPH [address] [address] [facility] Referral ID Status Reason Start Date Expiration Date V isits Requested Visits Authorized [id number] Authorized 11/14/2022 1 1 * Radiology Services (Routine/Next Available) - Receiving Office to Obtain Authorization Specialty Diagnoses / Procedures Referred By Contac t Referred To Contact Radiology Diagnoses NSTEMI (non-ST elevated myocardial infarction) (HCC-CMS) Hypertrophic cardiomyopathy (HCC-CMS) NSVT (nonsustained ventricular tachycardia) (HCC-CMS) Procedures MR CARDIAC W WO CONTRAST Shawna Terry MD MPH [address] [phone] [facility] Referral ID Status Reason Start Date Expiration Date Visits Requested Visits Authorized [id number] Receiving Office to Obtain Authorization 11/14/2022 1 1 Reason for Visit * Auth/Cert (Routine) Specialty Diagnoses / Procedures Referred By Contac t Referred To Contact Diagnoses GI bleed GIB Referral ID Status Reason Start Date Expiration Date Visits Re quested Visits Authorized [id number] 1 1 Encounter Details Date Type Department Care Team (Late st Contact Info) Description 11/11/2022 13:01 EDT - 11/14/2022 17:48 EDT Hospital Encounter [facility] General Medicine Unit [address] [place] [address] Rajinder Glez MD 111 [facility], [address] [place] [address] Shawna Terry MD MPH [address] [phone] Hypertrophic cardiomyopathy (HCC-CMS) (Primary Dx); Gastrointestinal hemorrhage, unspecified gastrointestinal hemorrhage type; Syncope, unspecified syncope type; NSTEMI (non-ST elevated myocardial infarction) (HCC-CMS); Duodenal erosion; Esophagitis; Acute blood loss anemia; NSVT (nonsustained ventricular tachycardia) (HCC-CMS) Discharge Disposition: Home or Self Care Social History Tobacco Use Types Packs/Day Years Used Date Smoking Tobacco: Never Smokeless Tobacco: Never Tobacco Cessation:Counseling Given: No Interpersonal Safety Answer Date Record ed Physically [...] 8:36 EDT documented as of this encounter Last Filed Vital Signs Vital Sign Reading Time Taken Comments Blood Pressure 137/63 11/14/2022 1425 EDT Pulse 82 11/12/2022 1320 EDT Temperature 37.6 ??C (99.7 ??F) 11/14/2022 1425 EDT Respiratory Rate 18 11/14/2022 1425 EDT Oxygen Saturation 94% 11/14/2022 1425 EDT Inhaled Oxygen Concentration - - Weight 78.9 kg (174 lb) 11/11/2022 1400 EDT Height 162.6 cm (5' 4) 11/11/2022 1400 EDT Body Mass Index 29.87 11/11/2022 1400 EDT documented in this encounter Functional Status [...] No 11/11/2022 documented as of this encounter Discharge Summaries * Trisha Fulton MD - 11/14/2022 5488 EDT HOSPITAL MEDICINE DISCHARGE SUMMARY Primary Care Provider: Bryant Crain Attending Physician: Shawna Terry MD, MPH Admit Date: 11/11/22 Discharge Date: 11/14/22 Disposition (location): home, self care Condition at Discharge: Improved Reason for Admission (chief complaint): melena Principal/Final Diagnosis: GI bleed Additional Problems Managed in the Hospital: Active Hospital Problems Diagnosis Date Noted NSTEMI (non-ST elevated myocardial infarction) ([facility]) (FORM[facility]) Duodenal erosion Esophagitis Resolved Hospital Problems Diagnosis Date Noted Date Resolved *GI bleed 11/11/2022 11/14/2022 Syncope 11/14/2022 Acute blood loss anemia 11/14/2022 [facility] Transition of Care report automatically routed to PCP office on discharge.Additional handoff communication performed via: Fax Clinical Issues Needing Follow-up 1. Pertinent medication changes: - START: - metoprolol 12.5 mg BID - protonix 40 mg BID x 8 weeks and then daily thereafter - HOLD until seen and discussed with PCP: - apixaban (discuss risks/benefits with PCP and consider restarting) - candesartan (can restart if stable and BP okay at PCP f/u) - RESTART: - baby aspirin - RECORD PRODUCER doses of insulin - NO NSAIDs moving foward 2. Recommended follow-up tests/procedures needed: - close PCP f/u within one week - referral placed for cardiology at [facility] - ordered cardiac MRI - ordered monitor tech with [facility] 3. Anticoagulation on discharge: No (HELD RECORD PRODUCER to be discussed with PCP) 4. Changes to goals of care at time of discharge (if applicable): None. Hospital Course: Fortunato Hart is a 72 y.o. female with a PMHx of paroxysmal Afib on eliquis, 2nd degree heart block, CVA on asa, HTN, HLD, and T2DM on insulin who initially presented to [facility] with chest pain, syncope, and one week of melanotic stools. EGD at [facility] showed mild esophagitis but no active bleed, however her hemoglobin dropped by multiple points and she was given 2 units pRBCs. She then developed significant hematemesis and required 2 additional units pRBCs and 2 units FFP. She was ultimately foundto have elevated troponin and had ongoing hematemesis prompting transfer to [facility] MICU for further management. On arrival to [facility] MICU, she was stable on room air and was not requiring blood pressure support. She had some mild chest pressure, hemoptysis, and melena shortly before arrival. While admitted in MICU she had a repeat EGD showing red blood in body of stomach suggestive of recent bleeding, scattered petechiae within body as potential bleeding source, circumferential erosion in the duodenal bulb,overall no evidence of active bleeding. Patient's hemoglobin stabilized and she was continued on BID PPI per GI recs. Unclear why she was on octreotide and for how long, no evidence of cirrhosis in chart. No alcohol use, nonsmoker, no recreational drugs, no herbal supplements. Patient's melena and v omiting ultimately resolved and her hemoglobin stabilized. She was continued on IV PPI BID and monitored to ensure stability in vitals and hgb. PT cleared her for discharge with home health PT. Patient was discharged home with plans for CBC next week and close PCP f/u to discuss her hospitalizationand her RECORD PRODUCER apixaban (on hold given bleed). 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 She arrived with Zio patch in place for further workup. Has not formally been worked up for this issue with cardiology. While troponin remained high, it was adynamic and had slightlydowntrended. She was seen by cardiology who recommended outpatient ischemic workup as well as cardiac MRI and monitor tech with [facility]. She was started on metoprolol tartrate and d/c with plan to f/u at [facility] Cardiology. Relevant Imaging/Procedures Performed: No results found. Results Pending at Discharge: Test results still pending from this admission None Upcoming Appointments Dec 08, 2022 11:30 (Arrive by 11:15) Office Visit Medium with Carlos Macario NP [facility] (--) [address] [facility] [address] Follow-up appointments and procedures Amb Consult/Follow Up Cardiology Reason for Request: inpatient team requested referral for hx NSVT, HCM, genetic eval for HCM Authorizing Provider: Shawna Terry MD MPH Amb Consult/Follow Up Primary Care Physician Outside of Network Reason for Request: hospital discharge follow up, acute GI bleed, concern for hypertrophic cardiomyopathy Authorizing Provider: Shawna Terry MD MPH [facility] I certify that this patient is under my care and that I, or another Medicare allowed practitioner (, DO, CONOR) working with me, had a [id number] encounter with this patient on this date: 11/14/2022 The discharge summary or progress note will provide further details that support the need for the home health services and the plan of care.: Yes Enter the allowed practitioner (, DO, CONOR) who will provide oversight of this patient's home heatlh care needs and plan of care: Bryant Raglander Some payers require a patient to be homebound to qualify for home health services. Homebound definition: Absences from home are infrequent or for relatively short duration (such as for medical appointments). Is patient HOMEBOUND?: Yes The patient???s homebound status is related to the following diagnoses, illness or condition (describe): acute GI bleed, hypertrophic cardiomyopathy The patient has a condition due to an illness or injury that restricts the ability to leave home except with: Assistance/Support device Assistive device: Walker Leaving home requires a considerable and taxing effort with mobility limited by the following (criteria 1): Impaired endurance Leaving home requires a considerable and taxing effort with mobility limited by the following (criteria 2): Impaired strength Skilled care requested: Acute therapies (includes PT, ROLLER MILL TENDER) Therapies skilled care requested: Physical Therapy Physical therapy is needed for: Evaluation Strength Training/Exercise Program Safety Authorizing Provider: Shawna Terry MD MPH Follow-up labs and tests CARDIAC EVENT MONITOR Complete by: November 14, 2022 (Approximate) Comments: Needs cardiac event monitor on [facility] per inpatient cardiology given hx of NSVT and HCM Scheduling Instructions: Needs cardiac event monitor on [facility] per inpatient cardiology given hx of NSVT and HCM Authorizing Provider: Shawna Terry MD MPH MR CARDIAC W WO CONTRAST Complete by: November 16, 2022 Process Instructions: Each individual MRI exam takes 30-45 minutes. Outpatients should bring meds for pain and/or claustrophobia so they can remain still for the entire exam. They must also have a safe ride home should they require medication. All metal will need to be removed (hair pins, piercings, jewelry, dentures). Patients are required to change from their street clothes into a hospital gown. Patients receiving contrast with their MRI and have risk factors for renal disease (including: Dialysis, Kidney transplant, Single kidney, Kidney surgery, History of known renal cancer, HTN requiringmedical therapy, Diabetes mellitus). They need to be screened for estimated GFR (eGFR) using serum creatinine within 60 days of MRI exam. For patients with severe renal disease (eGFR <30 ml/min or on dialysis), recommended to perform MRI without gadolinium due to risks of Nephrogenic Systemic Fibrosis (NSF). A consultation with Nephrology is required for approval of the use of gadolinium and to ensure prompt scheduling of dialysisafter MRI (within 2 hours). Authorizing Provider: Shawna Teryr MD MPH Complete Blood Count Complete by: November 17, 2022 (Approximate) Authorizing Provider: Shawna Terry MD MPH TRISHA FULTON MD 11/14/2022 17:47 Associated attestation - Shawna Terry MD MPH - 11/15/2022 0613 EDT Attestation: Pt seen and examined. I have reviewed Dr. Fulton's note and agree with the summary as outlined below. I personally spent >30 minutes reviewing the chart, evaluating and examining the patient, and counseling and preparing the patient for discharge. My edits are noted in purple. Shawna Terry MD, MPH Hospitalist documented in this encounter Discharge Instructions * Discharge Instr - AVS First Page* Trisha Fulton MD - 11/14/2022 14:40 EDT Medication changes: - Start taking metoprolol 12.5 mg twice a day as recommended by the cardiology team - Start taking protonix 40 mg twice a day for stomach protection. - You may return to taking your usual home insulin doses as long as you are eating normally - You may restart your baby aspirin (81 mg) that we were holding while you were in the hospital - Please do not take your candesartan (blood pressure medicine) until you see your primary care doctor - Please do not take your apixaban (blood thinning medication) until you see your primary care doctor - Do not take any NSAID medications (non-steroidal anti-inflammatory). This includes ibuprofen/Motrin, aleve, etc. - Please follow up with your primary care doctor ideally within 1 week. You should have bloodwork next week - I have ordered you labs that can be done within the [facility] network, or you can call your PCPif they draw blood and get bloodwork through them. We would recommend checking a complete blood count (CBC) to monitor your hemoglobin. - Please follow up with [facility]. A referral was placed and they should call you to schedule. - I have placed orders for the cardiac MRI as well as the monitor tech (wearable monitor to track your heartbeats over time). You will receive calls to schedule these as well. documented in this encounter Medications at Time of Discharge Medication Sig Dispensed Refills Start Date End Date acetaminophen (TYLENOL) 650 mg CR tablet 2 tab(s) orally twice a day, only as needed BD ULTRA-FINE MICRO PEN NEEDLE 32 gauge x 1/4 needle 06/17/2021 blood glucose meterIndications:Typ e 2 diabetes mellitus with hyperglycemia, with long-term current use of insulin ([facility]) by [facility] [...] tablet Take 1 Tablet by mouth daily. flash glucose scanning reader (FREESTYLE VICKY 2 [...] 01/18/2020 lancets/blood glucose strips (ONE TOUCH COMBO [facility]) -to test blood sugar - twice daily magnesium oxide (MAG-OX) 400 mg (241.3 mg [...] 1 SYRINGE SUBCUTANEOUSLY EVERY 2 WEEKS 06/26/2020 UNIFINE PENTIPS 04/19/2019 aspirin 81 mg EC tablet Take 81 mg by mouth daily. 12/09/2022 metoprolol TARtrate (LOPRESSOR) 25 mg tablet Take 0.5 Tablets by mouth 2 times daily. 30 Tablet 11/14/2022 12/09/2022 documented as of this encounter Ordered Prescriptions Prescription Sig Dispensed Refills Start Date End Da te pantoprazole (PROTONIX) 40 mg tablet Take 1 Tablet by mouth 2 times daily. 120 Tablet 11/14/2022 metoprolol TARtrate (LOPRESSOR) 25 mg tablet Take 0.5 Tablets by mouth 2 times daily. 30 Tablet 11/14/2022 12/09/2022 documented in this encounter Discharge Disposition Disposition Code Departure Means Destination Home or Self Long-Term documented in this encounter Progress Notes * Josemanuel Garcia, PT - 11/14/2022 1333 EDT [facility] Rehabilitation Therapy Acute Therapies [facility] Physical Therapy Initial Evaluation/Discontinue Note Date of Service: 11/14/2022 Reason for Referral: Priority for discharge Precautions: Activity as tolerated, Up ad azalia and titrate O2 to maintain oxygen saturation 92-98% SUBJECTIVE: I would like to go home today My is supportive. He takes good care of me Pain: No pain reported during the interview. OBJECTIVE: Reason for hospitalization: copied from hospitalist patient transfer request 11/13 72 y.o. female admitted to MICU on 11/11/2022 as a transfer from [facility] for syncope, hematemesis, upper GI bleed. At [facility] she received 4 units pRBC, 2 units FFP, Kcentra. Underwent EGD that showed esophagitis and old blood in stomach. Rising troponin and recurrent hematemesis prompting transfer to [facility] MICU. Underwent repeat EGD that show esophagitis, old blood, and non-bleeding duodenal erosion. Received two additional units pRBC. ?? Has been stable here since yesterday and never required pressors. Has been followed by cardiology for HCM, with consideration of PPM, and has Zio patch in place now. Will consider cardiac MRI inpatient if able. PatientProfile: Patient is a 72 y.o. 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 ([facility]) ([facility]); Essential hypertension; Paroxysmal atrial fibrillation ([facility]) ([facility]); Status post placement of implantable loop recorder; Diabetes mellitus, type 2 ([facility]); Rosacea; Hypomagnesemia; Mixed hyperlipidemia; Ventricular tachycardia ([facility]); Dilated cardiomyopathy ([facility]) ([facility]); Stage 3b chronic kidney disease ([facility]); Osteopenia after menopause; Hypercalcemia; Primary hyperparathyroidism ([facility]); Fatigue; NSTEMI (non-ST elevated myocardial infarction) ([facility]) ([facility]); Duodenal erosion; and Esophagitis on their problem list. PAST: The patient has a past medical history of Cerebrovascular accident (CVA) ([facility]), Diabetes mellitus, type 2 ([facility]) (On metformin On metformin), Essential hypertension, Mixed hyperlipidemia, Nonrheumatic aortic valve stenosis, and Paroxysmal atrial fibrillation ([facility]) ([facility]). Medications: Medications reviewed Arousal, Attention, and Cognition: Orientation: Alert Oriented to person, place, and time Patient able to consistently respond to questions and commands Cardiopulmonary: Vital Signs: Activity Heart rate (bpm) Blood Pressure (mmHg) Respiratory rate (breaths/min) Oxygen Sat/ Fractions of inspired Oxygen SPO2/FIO2 % supine, pre-activity 80 138/65 97% on RA sitting 79 130/60 96% on RA standing Post ambulation- supine 80 not recorded but similar to above 2 BP's- 158/71 98% on RA Patient vital signs stable and patient not symptomatic during examination/treatment. Integumentary/Anthropometric Characteristics: Palpation/Observation: gross skin assessment with no significant findings to areas without clothing/without dressings Posture: Forward head Range of Motion and Joint Integrity: wnl ROM bilateral UE's and LE's Muscle Performance: patient able to move bilateral UE's and LE's in supine without assist- > 3/5 Sensation, Reflexes, and Nerve Integrity: Intact to light touch dermatome testing for BUE/LE except: patient reports slightly diminished sensation right knee down due to h/o stroke Neuromotor Function/Development: Pt able to move all limbs in isolation, no deficits in coordination noted with functional mobility. Balance, Mobility, and Gait: Balance: Patient has a history of falls. Patient able to sit and shift CHALINO with no loss of balance Standing: static- able to stand without external support, dynamically patient benefits from supportof rolling walker Mobility: During all activities performed this patient was provided cues and education. These were provided to give movement techniques to: optimize ability for patient to participate in and perform task, optimize patient safety and utilize pacing recommendations Rolling: independent Supine to Sit: modified independent Sit to Supine: modified independent Sit to Stand: modified independent and supervision with rolling walker Stand to Sit: modified independent and supervision with rolling walker Transfers: modified independent and supervision with rolling walker Gait: rolling walker obtained and fitted to patient. Patient was able to ambulate 200+ feet with rolling walker and supervision Patient able to manage walker without assist demonstrating proper positioning and use of rolling walker. Patient with step thru gait pattern. No Loss of balance observed. Self-Care, Home Management, Work, and Leisure: N/E at this time Patient able to get on and off low toilet (per patient she has a raised toilet seat at home) Patient able to wipe post void Outcomes: Please refer to individual sections for any outcome measures that were performed Informed Consent: The patient consented to the physical therapy evaluation. The patient agrees to and understands the physical therapy treatment plan and goals. Interventions Completed Today: Physical Therapy today at: [id number] Total treatment time: 30 minutes. Timed code treatment minutes: 0 Intervention included: No interventions completed today Aiyanaaner rolling walker left in room for patient to use while hospitalized Patient/Family Education: Topic: Activity pacing/Energy conservation Assistive device/technique Discharge planning Role of therapy Safety Learner: patient Method: verbal Barriers to Learning: none noted Outcome: verbalized understanding and returned demonstration Team Communication: Nurse Face to face communication Prior to therapy session and After therapy session Discharge recommendations and Patient status ASSESSMENT: Physical Therapy Diagnosis: This patient presents with a Physical Therapy diagnosis of :Impaired gait, Impaired mobility and Impaired self care impacted by impairments of: activity tolerance Physical Therapy Prognosis: Physical therapy is medically necessary to: establish and progress mobility/exercise and provide recommendations for staff and safe discharge planning Current status compared to baseline level of function: expected to be at or near prior level of function. Anticipated rate of progress: steady Progress may be affected by the following: strengths: family/social support, home environment and previous level of function barriers: acute medical issues Discharge recommendations: home with family assist. Patient is very pleasant and motivated to participate in PT evaluation. Functionally patient is demonstrating a level of mobility that would allow for discharge home with her supportive . My recommendation is that patient use a rolling walker(which she has at home) at discharge and have homehealth services for home safety evaluation. Short-Term Goals: N/A ? Long-Term Goals: - NA PLAN: Discontinue acute care PT. Continue mobility with nursing assistance while hospitalized. Recommended Discharge Destination: Home with family Recommended Discharge Services: Home health physical therapy Recommended Equipment Needs: Patient has all necessary equipment Other recommendations: No other consults recommended at this time Pager: [phone] JOSEMANUEL GARCIA, PT 11/14/2022 13:33 * Kalyani Olguin RN - 11/13/2022 1208 EDT FOUR EYES SKIN ASSESSMENT Four Eyes skin assessment was performed on admission to the unit by Kalyani Olguin RN and Mary Greenwood RN. Device related pressure injury present? No All skin intact verified by: Kalyani Olguin RN. Last Jose Score: 16 Instructions: ??? Add LDA for any identified wounds ??? Add [place] image for any suspected PI or non surgical wounds ??? Order wound consult if suspected PI identified ? ? If Jose is < or = to 16, initiate Pressure Injury Prevention Bundle ([id number]). 11/13/2022 12:05 * Stephon Sosa - 11/13/2022 0748 EDT Critical Care Progress Note Admit Date: 11/11/2022 13:01 Hospital Day: LOS: 2 days Date of Service: 11/13/2022 Reason for Admission to ICU: 72 y.o. female transmitted for GI bleed and tropinemia and now with a principal diagnosis of GI bleed. Subjective/Objective 24 hour events: ??? EGD w/ esophagitis ??? Transfused 2uPRBCs Subjective Feels well this AM, no pain, no hematemesis or melena. Review of Systems A ten point review of systems was performed and was negative except for pertinent positives noted in the HPI Objective Temp: [36.5 ??C (97.7 ??F)-36.9 ??C (98.4 ??F)] , Heart Rate: [60 BPM-104 BPM] , Resp: [0-26] , BP:(114-163)/(50-114) , SpO2: [91 %-100 %] on 0 l/min None Physical Exam: General appearance: No acute distress HEENT: PERRL, EOMI, anicteric sclera. MMM Lungs: Clear to auscultation bilaterally, no wheezes, crackles or rhonchi Heart: Regular rate and rhythm, S1, S2 normal, no appreciable murmur, click, rub or gallop Abdomen: Soft, NT/ND Extremities: Warm, no cyanosis or edema Neurologic: Normal mentation. No obvious focal deficits or tremors Skin: Warm, dry, no rashes or bruising of exposed skin Tubes/Lines/Drains: PIV I&Os: Intake/Output Summary (Last 24 hours) at 11/13/2022 0749 Last data filed at 11/12/2022 1800 Gross per 24 hour Intake 1400 ml Output -- Net 1400 ml Labs: Recent Labs 11/11/22 1324 11/11/22 1822 11/12/22 1939 11/12/22 2351 11/13/22 0628 WBC 14.11* < > 28.23* 23.57* 23.98* RBC 2.96* < > 3.14* 2.74* 2.68* HGB 9.0* < > 9.7* 8.1* 8.4* HCT 25.9* < > 27.5* 23.5* 23.2* MCV 88 < > 88 86 87 MCH 30.4 < > 30.9 29.6 31.3 MCHC 34.7 < > 35.3 34.5 36.2* PLT 178 < > 137* 174 172 NEUTROABS 10.55* -- -- -- -- < > = values in this interval not displayed. Recent Labs 11/11/22 1324 11/11/22 2044 11/12/22 1146 11/12/22 1147 NA 139 139 -- 136 K 4.6 4.4 -- 4.6 CL 108 111* -- 107 CO2 16* 19* -- 21* BUN 50* 48* -- 46* CREATININE 1.17* 1.07* -- 1.07* CALCIUM 8.7 8.8 -- 9.2 CAION -- -- 1.23 -- MG 2.0 -- -- 2.1 LABALBU 3.2* -- -- -- Recent Labs 11/11/22 132 PROTIME 13.5* INR 1.2* PTT 22* Recent Labs 11/11/22 132 TBIL 0.7 ALKPHOS 33* AST 101* ALT 49* No results for input(s): PHISTAT, PCOISTAT, POISTAT, POCTCO2, H8IDNQVQ, POCFIO2 in the last 72 hours. Recent Labs 11/11/22 1324 11/11/222043 TROPONINI 34.700* 32.500* No results for input(s): LACTATE in the last 72 hours. Micro: Recent Results (from the past 24 hour(s)) MRSA PCR Collection Time: 11/11/22 13:24 Specimen: Nares; Swab Result Value Ref Range MRSA Result No Staphylococcus aureus detected by PCR New Imaging (w/in 24h): -TTE 11/11: ??? Left??Ventricle: The left ventricular cavity was small in size. Left ventricular systolic function was hyperdynamic with an ejection fraction =>65%. There was severe asymmetric hypertrophy of the left ventricle. Left ventricular wall motion was normal; there were no regional wall motion abnormalities. ??? Right??Ventricle: The right ventricular cavity was normal in size. Right ventricular systolic function was normal. -EGD 11/12: Esophagus: There was LA grade B esophagitis; no blood Stomach: There was red blood in the body of the stomach suggestive of recent bleeding; the mucosa was cleared with thorough irrigation. There were scattered petechiae within the body that may have been a potential source of bleeding. There was no active bleeding seen during the procedure. Duodenum: THere was circumferential erosion in the duodenal bulb; there was no active bleeding or high risk stigmata. Medications: - Continuous - Scheduled: gabapentin, 600 mg, BID insulin glargine, 20 Units, QHS insulin regular, , Q6H ketAMINE, , pantoprazole, 40 mg, BID sodium chloride 0.9 % (flush), 5 mL, Q8H - Continuous: - PRN: acetaminophen, 650 mg, Q6H PRN dextrose 50 %, 25 mL, PRN fentaNYL citrate (PF), 25 mcg, PRN glucagon, 1 mg, PRN sodium chloride, 30 mL/hr, PRN Or lactated Ringers, 30 mL/hr, PRN lidocaine, 2 mg, PRN lidocaine, 2 mg, PRN ondansetron (PF), 4 mg, PRN sodium chloride 0.9 % (flush), 5 mL, PRN Assessment/Plan Assessment 72 y.o. female with a past medical history significant for PAfib oneliquis, chrnoic trop elevation w/ 2nd degree block, CVA of left MCA, HTN, HLD, DM2 on insulin who presented to [facility] on the forchest pain, syncope and melena. She was then had hematemesis at the hospital and her initial HGB was 9.9 but dropped to 7.1. She received 4upRBC and 2 FFP and Kcentra and EGD revealed no active bleeding and esophagitis. Trasnfered to the MICU for recurrent hematemesis this morning and elevated troponin. In the MICU on 11/12 she required a 2upRBC transfusion and EGD revealed esophagitis with no acute bleeding. Plan to continue PPI and avoid NSAIDS and trend Hgb. Edna is following with plan for po ssible inpatient vs. Outpatient cardiac MRI and outpatient follow up for likely ICD placement. She is appropriate for the floor at this time and we will continue with telemetry monitoring and observefor any new hematemesis or melena. Plan Pulmonary: -on room air ?? Cardiac: #atrial fribrillation on eliquis #tropinemia #2nd degree AV block #LVH -hold RECORD PRODUCER eliquis -formal TTE: hyperdynamic, asymmetric hypertrophy -trops peaked 11/12 -EKG with V1 V2 ST elevation -EKG if symptomatic -f/u cards recs, -possible inpatient cardiac MRI, will likely need ICD placement -low dose BB when more stable -event monitor on MCOT as outpatient -Monitor on telemetry -hold RECORD PRODUCER candasartan ?? Renal: - monitor electrolytes, Cr daily - replete Mg, K prn ?? GI/Nutrition: EGD at OSH revealed esophagitis and old blood clots in stomach, no active bleeding #upper gi bleed -protonix 40mg BID -D/C octreotide -soft consistent carb diet -CBC Q6 ?? Infectious Disease: - will remain vigilant for signs of infection, follow fever curve and white count - culture if febrile ?? Hematologic: - CBC Q6 -transfuse Hgb <8 -s/p 2upRBCs on 11/12 ?? Neurologic: - minimize deliriogenic meds ?? Endocrine: #DMII -SSI aspart - monitor fingerstick glucose -start lantus 20 (RECORD PRODUCER 30) ?? PPX: ??? GI:??protonix ??? DVT:??contraindicated SCDs. ??? Elevate HOB ??? Turn q2 ?? CODE: full Contact: PT/OT: Deferred Consults: cards and GI Discharge Plan: Uncertain at this time Stephon Sosa PGY1 Associated attestation - Rajinder Glez MD - 11/13/2022 6268 EDT Attestation: I performed or was present during the gonzalez or critical portions of the visit and participated in the management of the patient on 11/13/2022. I agree with the findings and plan of care documented in the resident's/fellow's note. Rajinder Glez MD 11/13/2022 13:58 * Nikko Celis DO - 11/12/2022 1926 EDT GI EGD note: Procedure Diagnosis Esophagus: There was LA grade B esophagitis; no blood Stomach: There was red blood in the body of the stomach suggestive of recent bleeding; the mucosa was cleared with thorough irrigation. There were scattered petechiae within the body that may have been a potential source of bleeding. There was no active bleeding seen during the procedure. Duodenum: THere was circumferential erosion in the duodenal bulb; there was no active bleeding or high risk stigmata. Recommendations -continue BID PPI x 8 weeks; should be on daily PPI indefinitely if aspirin is to be continued -avoid NSAIDs Nikko Celis DO PGY5 Gastroenterology & Hepatology Fellow * Andrea Lee RN - 11/12/2022 1036 EDT .Post Fall ALISA Note Data: Patient witnessed falling by Andrea Lee RN and Winter Novak RN at 0945. Initial assessment: pt had syncopal episode was lowered to floor by RNs. Vital Signs BP: (!) 143/72 Heart Rate: 88 BPM Resp: 11 Temp: 36.7 ??C (98 ??F) SpO2: 99 % O2 Device: None Post Fall Assessment - head injury factors * Level of Consciousness: Alert Vomiting?: No Orientation Level: Oriented X3 Confusion?: None Worsening Headache?: No Sedating Meds with in last 24 hours?: No Anticoagulant Use?: No Facial Trama?: No Seizure Activity?: No. notified @ 0945. contreras Luciano RN notified @ 0945. Action: Patient assisted back to bed with staff assistance. Patient placed on high fall precautions. Fall careplan updated. Patient is not on Anticoagulant/Antiplatelet drugs. Response: Pt returned to baseline once back in bed, EKG completed, labs ordered. ANDREA LEE RN 11/12/2022 10:37 * Rajinder Glez MD - 11/12/2022 0641 EDT Critical Care Progress Note Admit Date: 11/11/2022 13:01 Hospital Day: LOS: 1 day Date of Service: 11/12/2022 Reason for Admission to ICU: 72 y.o. female transmitted for GI bleed and tropinemia and now with a principal diagnosis of GI bleed. Subjective/Objective 24 hour events: ??? No overnight events Subjective Doing well this AM, denies any hematemesis or BMs overnight, chest pain has resolved, tolerated ren maxime overnight. Review of Systems A ten point review of systems was performed and was negative except for pertinent positives noted in the HPI Objective Temp: [36.7 ??C (98 ??F)-37.5 ??C (99.5 ??F)] , Heart Rate: [78 BPM-108 BPM] , Resp: [10-22] , BP: (122-150)/(57-95) , SpO2: [95 %-100 %] on None Physical Exam: General appearance: No acute distress HEENT: PERRL, EOMI, anicteric sclera. MMM Lungs: Clear to auscultation bilaterally, no wheezes, crackles or rhonchi Heart: Regular rate and rhythm, S1, S2 normal, no appreciable murmur, click, rub or gallop Abdomen: Soft, NT/ND Extremities: Warm, no cyanosis or edema Neurologic: Normal mentation. No obvious focal deficits or tremors Skin: Warm, dry, no rashes or bruising of exposed skin Tubes/Lines/Drains: PIV I&Os: Intake/Output Summary (Last 24 hours) at 11/12/2022 0641 Last data filed at 11/12/2022 0600 Gross per 24 hour Intake 405.83 ml Output 1010 ml Net -604.17 ml Labs: Recent Labs 11/11/22 1324 11/11/22 1822 WBC 14.11* 14.72* RBC 2.96* 2.83* HGB 9.0* 8.6* HCT 25.9* 24.7* MCV 88 87 MCH 30.4 30.4 MCHC 34.7 34.8 PLT 178 194 NEUTROABS 10.55* -- Recent Labs 11/11/22 1324 11/11/22 2044 NA 139 139 K 4.6 4.4 CL 108 111* CO2 16* 19* BUN 50* 48* CREATININE 1.17* 1.07* CALCIUM 8.7 8.8 MG 2.0 -- LABALBU 3.2* -- Recent Labs 11/11/22 1324 PROTIME 13.5* INR 1.2* PTT 22* Recent Labs 11/11/22 1324 TBIL 0.7 ALKPHOS 33* AST 101* ALT 49* No results for input(s): PHISTAT, PCOISTAT, POISTAT, POCTCO2, B2HTFIOA, POCFIO2 in the last 72 hours. Recent Labs 11/11/22 1324 TROPONINI 34.700* No results for input(s): LACTATE in the last 72 hours. Micro: Recent Results (from the past 24 hour(s)) MRSA PCR Collection Time: 11/11/22 13:24 Specimen: Nares; Swab Result Value Ref Range MRSA Result No Staphylococcus aureus detected by PCR New Imaging (w/in 24h): -TTE 11/11: ??? Left??Ventricle: The left ventricular cavity was small in size. Left ventricular systolic function was hyperdynamic with an ejection fraction =>65%. There was severe asymmetric hypertrophy of the left ventricle. Left ventricular wall motion was normal; there were no regional wall motion abnormalities. ??? Right??Ventricle: The right ventricular cavity was normal in size. Right ventricular systolic function was normal. Medications: - Continuous - Scheduled: gabapentin, 600 mg, BID insulin aspart U-100, , Q6H insulin glargine, 10 Units, QHS pantoprazole, 40 mg, BID - Continuous: - PRN: acetaminophen, 650 mg, Q6H PRN dextrose 50 %, 25 mL, PRN glucagon, 1 mg, PRN lidocaine, 2 mg, PRN Assessment/Plan Assessment 72 y.o. female with a past medical history significant for PAfib oneliquis, chrnoic trop elevation w/ 2nd degree block, CVA of left MCA, HTN, HLD, DM2 on insulin who presented to [facility] on the forchest pain, syncope and melena. She was then had hematemesis at the hospital and her initial HGB was 9.9 but dropped to 7.1. She received 4upRBC and 2 FFP and Kcentra and EGD revealed no active bleeding and esophagitis. Trasnfered to the MICU for recurrent hematemesis this morning and elevated troponin. Patient is currently stable, most recent Hgb 9 with no hematemesis or melena since arrival. Troponin has increased and EKG had new ST elevations since this morning but per cards this is similar to past EKGs and likely a stress induced tropinemia that they will continue to follow. On 11/12 trop peaked but Hgb dropped to 7.1 and she had a syncopal episode. Plan for 2upRBCs and GI will scope this afternoon. Cards was notified and will evaluate for heart block and she will likely need a pacemaker during this visit. -Syncopal episode this AM while walking -HgB drifted downwards, transfused 2 units PRBC -EGD this PM - clean based ulcer with no active bleeding (see endoscopy report for details) -Continue to monitor in ICU overnight -Hopefully ready for floor in AM -Over time as apixiban wears off and PPI has time to work, she should hopefully continue to improve Plan Pulmonary: -on room air ?? Cardiac: #atrial fribrillation on eliquis #tropinemia #2nd degree AV block #LVH -hold RECORD PRODUCER eliquis -formal TTE: hyperdynamic, asymmetric hypertrophy -trops peaked 11/12 -EKG with V1 V2 ST elevation -EKG if symptomatic -f/u cards recs, will likely need ICD placement -Monitor on telemetry -hold RECORD PRODUCER candasartan -trend lactate Q6, down trending -syncopal episode on 11/12, pending cards recs -heparin 0.23, INR 1.2, PTT 22, fibrinogen 245 on presentation ?? Renal: - monitor electrolytes, Cr daily - replete Mg, K prn ?? GI/Nutrition: EGD at OSH revealed esophagitis and old blood clots in stomach, no active bleeding #upper gi bleed -protonix 40mg BID -D/C octreotide -NPO -CBC Q6 -Hgb drop to 7.1 on 11/12, transfuse and plan for EGD this afternoon ?? Infectious Disease: - will remain vigilant for signs of infection, follow fever curve and white count - culture if febrile ?? Hematologic: - CBC Q6 -transfuse Hgb <8 -f/u STAT Hgb morning 11/12 for hgb of 7.1 after 2upRBCs ?? Neurologic: - minimize deliriogenic meds ?? Endocrine: #DMII -SSI regular - monitor fingerstick glucose -start lantus 20 (RECORD PRODUCER 30) ?? PPX: ??? GI:??protonix ??? DVT:??contraindicated SCDs. ??? Elevate HOB ??? Turn q2 ?? CODE: full Contact: PT/OT: Deferred Consults: cards and GI Discharge Plan: Uncertain at this time Stephon Sosa PGY1 Attending attestation statement: I saw and examined the patient with the resident/medical student and agree with the findings and plans as documented, and as amended in blue. Clinical Condition: Fortunato Hart is a critically ill 72 y.o. female. Over the past 24 hours, there has been a high probability of sudden, clinically significant or life threatening deterioration in the patient???s condition, which include the following diagnoses which I have managed: 1. Gastrointestinal hemorrhage, unspecified gastrointestinal hemorrhage type Critical Care time was provided in the form of interventions to treat and prevent further life threatening deterioration of the patient???s condition including: management of GI hemorrhage, and high complexity decision making regarding need for additional imaging studies and / or interventional radiology interventions. My bedside involvement was required to monitor and direct the critical care that has been provided.Exclusive of procedures, my critical care time is 45 minutes. Rajinder Glez MD Pulmonary & Critical Care Medicine 11/12/2022 * Suleman Potter RN - 11/12/2022 0326 EDT Ultrasound dynamic guidance was used for peripheral line insertion. Name of senior manufacturing engineer: Suleman Potter RN LDAINFO BLOCK Peripheral IV 11/12/22 0325 Anterior;Left Upper Arm (Active) 11/12/22324 Upper Arm Dressing Change Due: 11/19/22 Size (Gauge): 20 Catheter Length (Inches): 1.75 Catheter Brand: B Meng Introcan Orientation: Anterior;Left Site: Inserted by: Inserted by RN;Ultrasound Guided Insertion attempts: 1 Local Anesthetic: None Skin Antisepsis: 3.15% Chlorhexidine with IPA Removal Reason : Post Removal Assessment/Care: Size (Gauge): Catheter Length: IV Change Due: Orientation: Criteria to continue met? (chart all reasons) Telemetry class I 11/12/22325 Date Dressing Changed 11/12/22 11/12/22325 Dressing date clearly marked on PIV site? Yes 11/12/22325 Site Assessment Clean/Dry/Intact 11/12/22325 Line Status Blood returned;Flushed 11/12/22325 Dressing Status/Care Changed/New 11/12/22325 Patient response: Patient tolerated well. Patient education: Provided at bedside. SULEMAN POTTER RN 11/12/2022 * Nikko Celis DO - 11/11/2022 8958 EDT Brief GI note: Patient admitted as transfer from [facility] in the setting of hematemesis and NSTEMI. She had a EGD donewhich showed mild esophagitis and old blood in the stomach without other significant findings. She had a recurrent episode of hematemesis this morning prompting transfer to [facility]. She has not had recurrent evidence of active GI bleeding since this morning's event. This could represent on-going bleeding from esophagitis or she may have another source of bleeding that was not identified on the index endoscopy. Recs: -continue IV PPI BID -NPO after midnight -full GI consult note to follow; we may consider repeat endoscopic evaluation pending clinical course Nikko Celis DO PGY5 Gastroenterology & Hepatology Fellow * Kizzy Aguila RT - 11/11/2022 5579 EDT Respiratory Consult/Progress Note Indications for Respiratory therapy: ICU consult Data Vitals: Heart Rate: 89 BPM, Resp: 17, SpO2: 98 % FIO2/O2 Device: , , , RT Orders: Q12 Protocol Scoring: Bronchodilator/Inhalation Therapy Frequency Bronchodilator - Clinical Indications: No clinical indications Breath Sounds: Clear Response: No change / no treatment Pulse: <100 Resp Rate: <18 SOB: None Total Score: 0 Frequency Based On Total Score: 0-4 = PRN 5-7 = QID 8-10 = Q4H 11-12 = Q2H Airway Clearance Therapy Frequency Airway Clearance - Clinical Indications: No clinical indications Breath Sounds: Clear / diminished Sputum: Small (tsp) / None Consistency: None Cough Effort: Strong/ non-productive Color: None Total Score: 0 Frequency Based On Total Score: 0-3 = PRN 4-6 = QID and PRN 7-9 = Q4H and PRN 10-11 = Q2H and PRN Hyperinflation Therapy Frequency Hyperinflation - Clinical Indications: No clinical indications Breath Sounds: Clear Surgery: No X-Ray / Atelectasis: No O2 Requirements: O2 at baseline Mobility Status: Mobile / at baseline Total: 0 Frequency Based On Total Score: 0-3 = PRN 4-6 = QID and PRN 7-9 = Q4H and PRN 10-12 = Q2H and PRN Action/Events Respiratory events; Pt declined any respiratory history, or home respiratory medications. Sating well on room air RT Arturo 11/11/22 documented in this encounter H&P Notes * Rajinder Glez MD - 11/11/2022 1312 EDT [facility] Medical Intensive Care Unit History and Physical Chief Complaint Transfer for Upper GI bleed and NSTEMI Subjective/Objective History of Present Illness Fortunato Hart is a 72 y.o. female with a past medical history significant for PAfib on eliquis, chronicmild trop elevation w/ 2nd degree type 1 av block, CVA of left MCA, HLD, HTN, DM2 on insulin,recent kidney stone passed on 11/07, who presented to [facility] on 11/11 for 2 episodes of chest pressure and syncope. She initially presented to her PCP who did an EKG that was reassuring, she then had antother episode of chest pressure that evening and went to the ED. She has also had black stools for thepast week and is currently wearing a Zio patch to evaluate her chronicly elevated troponin. She wasscheduled for a stress MPI today that was cancelled. On admission to the ED she had a hgb of 9.9 and dropped to a low of 7.1. She received 2upRBCs and EGD revealed esophagitis and blood clots in the stomach but no active bleeding. Early on the morning of 11/11 she vomitted 1.5 cups of geletanous blood and then 475 more and received 2 more units of pRBC and 2units of FFP and Kcentra. She was started on an ocreotide infusion and protonix. Of note her aspirin and eliquis has been held since the . Her troponin downtrended while at [facility] and she wasthen transferred to the [facility] MICU. At [facility] she arrives stable on RA without pressors and AOx4. She endorses mild chest pain and states she had hemoptysis and melena earlier today. 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 She is also currently on a delmar patch to evaluate for a possible pacemaker. She denies any recent fevers, chills, N, V, URI symptoms prior to her hospital admission. She denies any stents or Mis in the past. REVIEW OF SYSTEMS A ten point review of systems was performed and was negative except for pertinent positives noted in the HPI Past Medical History: Diagnosis Date ??? Cerebrovascular accident (CVA) ([facility]) ([facility] ([facility]) 06/01/2019 ??? Diabetes mellitus, type 2 ([facility]) ([facility]) 01/26/2011 On metformin On metformin ??? Essential hypertension 06/01/2019 ??? Mixed hyperlipidemia 06/05/2019 ??? Nonrheumatic aortic valve stenosis 06/01/2019 ??? Paroxysmal atrial fibrillation ([facility]) ([facility]) 06/01/2019 No past surgical history on file. Social History Tobacco Use ??? Smoking status: Never ??? Smokeless tobacco: Never No family history on file. Medications Prior to Admission Medication ??? acetaminophen (TYLENOL 8 HOUR) 650 mg CR tablet ??? apixaban (ELIQUIS) 5 mg tablet ??? aspirin 81 mg EC tablet ??? BD ULTRA-FINE MICRO PEN NEEDLE 32 gauge x 1/4 needle ??? blood glucose meter ??? candesartan (ATACAND) 32 mg tablet ??? cetirizine (ZYRTEC) 10 mg tablet ??? Cholecalciferol, Vitamin D3, 10 mcg (400 unit) tablet ??? cyanocobalamin (VITAMIN B-12) 500 mcg tablet ??? empagliflozin (JARDIANCE) 10 mg tablet ??? flash glucose scanning reader (Lightera VICKY 2 READER) misc ??? TattoodoSTYLE VICKY 2 SENSOR kit ??? gabapentin (NEURONTIN) 300 mg capsule ??? HUMALOG KWIKPEN INSULIN 100 unit/mL injectable pen ??? insulin glargine (LANTUS SOLOSTAR U-100 INSULIN) 100 unit/mL (3 mL) injection pen ??? lactobacillus combination no.8 3 billion cell capsule ??? lancets/blood glucose strips (ONE TOUCH COMBO MISC) ??? magnesium oxide (MAG-OX) 400 mg (241.3 mg magnesium) tablet ??? metFORMIN (GLUCOPHAGE-XR) 750 mg ER tablet ??? mupirocin (BACTROBAN) 2 % ointment ??? ONETOUCH ULTRA BLUE TEST STRIP test strips ??? OZEMPIC 1 mg/dose (4 mg/3 mL) pen injector ??? REPATHA SYRINGE 140 mg/mL syringe ??? UNIFINE PENTIPS Physical Exam VITALS No data recorded GENERAL: NAD, pale NEURO: Alert and oriented to person, place and time. HEENT: Normocephalic, atraumatic. NECK: Neck supple, non-tender without lymphadenopathy. CARDIAC: tachycardidc, irregularly irregular LUNGS: Clear to auscultation bilaterally without rales, rhonchi, wheezing or diminished breath sounds. ABDOMEN: Soft, non-distended, tender to palpation of epigastric region. No guarding or rebound. No masses. EXTREMITIES: No significant deformity or joint abnormality. No edema. Peripheral pulses intact. SKIN: normal color, texture and turgor with no lesions or eruptions. GENITOURINARY: LABS No results for input(s): WBC, RBC, HGB, HCT, MCV, MCH, MCHC, PLT, NEUTROABS, SEDRATE in the last 72hours. No results for input(s): NA, K, CL, CO2, BUN, CREATININE, CALCIUM, CALCCA, CAION, MG, PHOS, LABALBUin the last 72 hours. No results for input(s): PROTIME, INR, PTT in the last 72 hours. No results for input(s): TBIL, ALKPHOS, AST, ALT, LIPASE, AMYLASE in the last 72 hours. No results for input(s): PHISTAT, PCOISTAT, POISTAT, POCTCO2, [id number], POCFIO2 in the last 72 hours. No results for input(s): CK, MB, CKMBINDEX, TROPONINI in the last 72 hours. No results for input(s): LACTATE in the last 72 hours. MICROBIOLOGY No results found for this or any previous visit (from the past 24 hour(s)). IMAGING Assessment/Plan Assessment 72 y.o. female with a past medical history significant for PAfib oneliquis, chrnoic trop elevation w/ 2nd degree block, CVA of left MCA, HTN, HLD, DM2 on insulin who presented to [facility] on the forchest pain, syncope and melena. She was then had hematemesis at the hospital and her initial HGB was 9.9 but dropped to 7.1. She received 4upRBC and 2 FFP and Kcentra and EGD revealed no active bleeding and esophagitis. Trasnfered to the MICU for recurrent hematemesis this morning and elevated troponin. Patient is currently stable, most recent Hgb 9 with no hematemesis or melena since arrival. Troponin has increased and EKG had new ST elevations since this morning but per cards this is similar to past EKGs and likely a stress induced tropinemia that they will continue to follow. GI has also been consulted pending their recs. Plan to monitor Q6 Hgb and continue protonix. If becomes unstable or has drop in Hgb will call GI for possible emergent EGD. PLAN Pulmonary: -on room air Cardiac: #atrial fribrillation on eliquis #tropinemia #2nd degree AV block #LVH -hold RECORD PRODUCER eliquis -formal TTE -trend trops to peak -EKG with V1 V2 ST elevation -EKG if symptomatic -f/u cards recs -Monitor on telemetry -hold RECORD PRODUCER candasartan -trend lactate Q6 -heparin 0.23, INR 1.2, PTT 22, fibrinogen 245 Renal: - monitor electrolytes, Cr daily - replete Mg, K prn GI/Nutrition: EGD at OSH revealed esophagitis and old blood clots in stomach, no active bleeding #upper gi bleed -protonix 40mg BID -D/C octreotide -NPO -CBC Q6 -EGD if unstable or increased bleeding -Pending GI recs Infectious Disease: - will remain vigilant for signs of infection, follow fever curve and white count - culture if febrile Hematologic: - CBC Q6 -transfuse Hgb <8 Neurologic: - minimize deliriogenic meds Endocrine: #DMII -SSI - monitor fingerstick glucose -start lantus 10 (RECORD PRODUCER 30) PPX: GI: protonix DVT: contraindicated SCDs. Elevate HOB Turn q2 CODE: full Contact: PT/OT: Deferred Consults: cards and GI Discharge Plan: Uncertain at this time Stephon Sosa PGY1 Attending attestation statement: I saw and examined the patient with the resident/medical student and agree with the findings and plans as documented, and as amended in blue. Clinical Condition: Fortunato Hart is a critically ill 72 y.o. female. Over the past 24 hours, there has been a high probability of sudden, clinically significant or life threatening deterioration in the patient???s condition, which include the following diagnoses which I have managed: No diagnosis found. Critical Care time was provided in the form of interventions to treat and prevent further life threatening deterioration of the patient???s condition including: management of gastrointestinal hemorrhage, and high complexity decision making regarding need for additional imaging studies and / or inter ventional radiology interventions. My bedside involvement was required to monitor and direct the critical care that has been provided.Exclusive of procedures, my critical care time is 45 minutes. Rajinder Glez MD Pulmonary & Critical Care Medicine 11/11/2022 documented in this encounter Procedure Notes * Matti Lee MBBS - 11/12/2022 1623 EDT MICU PROCEDURAL SEDATION NOTE I was requested to provide procedural sedation for Fortunato Hart by Dr. Muro who will be performing EGD in the medical intensive care unit. Indication for Procedure: UGIB Procedure Urgency - Urgent Pre-procedure assessment for sedation (including airway assessment) was performed as outlined in [facility] sedation policy ([id number]). Auscultate heart: NORMAL Auscultate lung: normal Mallampati score: I (soft palate, uvula, fauces, tonsillar pillars visible) Previous complications with sedation/anesthesia? no Is patient appropriate for planned sedation? yes ASA classification: ASA 2 - Patient with mild systemic disease with no functional limitations Patient was reassessed immediately prior to start of sedation? yes Immediately prior to procedure a time out was called to verify the correct patient, procedure, equipment, desktop support manager and site/side marked as required. Patient's heart rate, pulse oximetry, respiratory rate, mental status, respiratory effort and (if applicable) ETCO2 were monitored continuously throughout the procedure. Blood pressure was monitored a minimum of every 2 minutes. Sedation administered: Agent: Versed 2 mg Fentanyl 25 mcg Versed 2 mg Sedation Start Time - 1610 Sedation Stop Time - 1625 Attestation: I personally spent 20 minutes in continuous [id number] attendance with the patient for the administration of the moderate sedation and monitoring throughout the procedure. MONA DAVIDSON MICU Fellow 11/12/2022 16:23 Associated attestation - Rajinder Glez MD - 11/12/2022 2112 EDT Attending attestation: I was present during the entire procedure. I saw and examined the patient 11/12/2022. I agree with the findings and plan of care documented in the resident's/fellow's note. Rajinder Glez MD 11/12/2022 21:12 documented in this encounter Consult Notes * Nikko Celis DO - 11/12/2022 0958 EDT Images from the original note were not included. INITIAL GI CONSULT NOTE: Reason for Consultation/Chief Complaint: Hematemesis Attending Physician: Rajinder Glez MD Admit date: 11/11/2022 Assessment/Plan: Fortunato Hart is a 72 y.o. female with a PMH of atrial fibrillation (on Eliquis), 2nd degree heart block, CVA (on ASA), HTN, HLD, T2DM (on insulin), now presenting with hematemesis, melena, and elevated troponin in setting of suspected demand NSTEMI. Now s/p 4u pRBCs and 2u FFP at OSH with EGD relatively unrevealing showing mild esophagitis and old blood. However with ongoing clinical evidence of active bleed including hematemesis following endoscopic evaluation and hemoglobin 9.0-->7.1 since yesterday. Most likely differential of ongoing upper GI bleed includes peptic ulcer disease (2/2chronic ASA), AVM, portal hypertensive gastropathy or varices (no known history of fibrosis but patient has abnormal LFTs and evidence of metabolic syndrome), or Dieulafoy lesion. Patient will need inpatient reevaluation with esophagogastroduodenoscopy to assess for source of ongoing bleed. Recommendations: 1. NPO for esophagogastroduodenoscopy today in MICU 2. Agree with plan to hold antiplatelet and 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 in setting of active GI bleed Case discussed and examined Dr. Celis, GI fellow and with GI attending Dr. Muro, who agrees with the above assessment and plan. Attending addendum to follow. GI team to follow. Please feel free to call the GI Consult pager if there is an acute change in the patient's clinical status or if you require additional assistance/clarification. HPI: Fortunato Hart is a 72 y.o. female with a PMH of atrial fibrillation (on Eliquis), 2nd degree heart block, CVA (on ASA), HTN, HLD, T2DM (on insulin), now presenting as transfer from OSH with hematemesis, melena, and elevated troponin. Patient reports that she had suspected kidney stone prior to initial presentation and had to drink contrast for imaging of the stone. After finishing the contrast she noticed her stools were very dark. The next day she had two syncopal episodes and presented to the ED at OSH. She denies any ryan blood in her stool or changes to bowel habits. She had a colonoscopy once in 2004 and has otherwise never seen GI. Denies any nausea/vomiting or abdominal pain. Had noticed some heartburn symptoms overthe last couple months but wasn't taking anything for them. Denies alcohol use, nonsmoker, no rec drugs, no herbal supplements. Takes ASA and Eliquis. Has not had a bowel movement in a couple days. Denies nausea/vomiting apart from one episode of hematemesis at OSH that came on suddenly. Does endorse some chest pain, dizziness, and shortness of breath. Per chart review it appears the patient had hemoglobin of 9.1 on admission to ED at OSH that subsequently dropped to 7.1. She received 2u pRBCs and had EGD which showed mild esophagitis and old bloodin stomach, but no signs of active bleeding. The next day she had more hematemesis and received an additional 2u pRBCs and 2u FFP. Eliquis and ASA have been held since 11/09. No known GI history. ROS: Completed ROS performed except as discussed in HPI, all systems reviewed and negative. Past Medical History: Diagnosis Date ??? Cerebrovascular accident (CVA) ([facility]) 06/01/2019 ??? Diabetes mellitus, type 2 ([facility]) 01/26/2011 On metformin On metformin ??? Essential hypertension 06/01/2019 ??? Mixed hyperlipidemia 06/05/2019 ??? Nonrheumatic aortic valve stenosis 06/01/2019 ??? Paroxysmal atrial fibrillation ([facility]) ([facility]) 06/01/2019 No past surgical history on file. Current Facility-Administered Medications Medication Dose Route Frequency Provider Last Rate Last Admin ??? acetaminophen (TYLENOL) tablet 650 mg 650 mg oral Q6H PRN Miguel Gandhi MD 650 mg at 053 ??? dextrose 50 % solution 12.5 g 25 mL intravenous PRN Stephon Sosa ??? gabapentin (NEURONTIN) capsule 600 mg 600 mg oral BID Miguel Gandhi MD 600 mg at 11/12/22 0838 ??? glucagon injection 1 mg 1 mg intramuscular PRN Stephon Sosa ??? insulin glargine (LANTUS SOLOSTAR/SEMGLEE) injection pen 20 Units 20 Units subcutaneous QHS MarycarmenReilly ??? insulin regular (NOVOLIN R) injection subcutaneous Q6H Stephon Sosa ??? lidocaine (PF) 10 mg/mL (1 %) injection 2 mg 2 mg intradermal PRN Stephon Sosa ??? pantoprazole (PROTONIX) injection 40 mg 40 mg intravenous BID Chiara Sosas 40 mg at 11/12/22 0838 Allergies Allergen Reactions ??? Iodinated Contrast Media [...] ??? Propoxyphene N-Acetaminophen Other reaction(s): Hallucinations ??? Yikplre-Zhr-Dns Reductase Inhibitors ??? Trulicity [Dulaglutide] Gi Side effect No family history on file. Social History Socioeconomic History ??? Marital status: Spouse name: Not on file ??? Number of children: Not on file ??? Years of education: Not on file ??? Highest education level: Not on file Occupational History ??? Not on file Tobacco Use ??? Smoking status: Never ??? Smokeless tobacco: Never Substance and Sexual Activity ??? Alcohol use: Not on file ??? Drug use: Not on file ??? Sexual activity: Not on file Other Topics Concern ??? Not on file Social History Narrative ??? Not on file Social Determinants of Health Financial Resource Strain: Not on file Food Insecurity: Not on file Transportation Needs: Not on file Physical Activity: Not on file Stress: Not on file Social Connections: Not on file Housing Stability: Not on file Physical Exam: Last Vitals: BP (!) 149/73 Temp 36.7 ??C (98 ??F) Resp 16 Ht 162.6 cm (64) Wt 78.9 kg (174lb) SpO2 99% BMI 29.87 kg/m?? Vitals: 11/12/22 0945 11/12/22 1000 11/12/22 1015 11/12/22 1030 BP: (!) 161/114 (!) 152/70 (!) 143/72 (!) 149/73 Resp: 16 Temp: TempSrc: SpO2: 100% 100% 99% 99% Weight: Height: General appearance: Pale, tired-appearing, lying comfortably in bed, no acute distress HEENT: Normocephalic, atraumatic. No scleral icterus Pulm: Normal respiratory effort. CV: Regular rate and rhythm. Abdomen: Nondistended. Nontender to palpation without rebound or guarding. Skin: No jaundice Extremities: No edema Neurologic: A&Ox4 Labs: Data reviewed. I have reviewed all lab results CBC: Recent Labs 11/11/22 1324 11/11/22 1822 11/12/22 0723 11/12/22 0924 WBC 14.11* 14.72* 25.34* 23.80* RBC 2.96* 2.83* 2.30* 2.32* HGB 9.0* 8.6* 7.1* 7.1* HCT 25.9* 24.7* 20.0* 20.3* MCV 88 87 87 88 MCH 30.4 30.4 30.9 30.6 MCHC 34.7 34.8 35.5 35.0 PLT 178 194 189 215 NEUTROABS 10.55* -- -- -- BMP: Recent Labs 11/11/22 1324 11/11/22 2044 NA 139 139 K 4.6 4.4 CL 108 111* CO2 16* 19* BUN 50* 48* CREATININE 1.17* 1.07* CALCIUM 8.7 8.8 MG 2.0 -- LABALBU 3.2* -- Coags: Recent Labs 11/11/22 1324 PROTIME 13.5* INR 1.2* PTT 22* LFT: Recent Labs 11/11/22 1324 TBIL 0.7 ALKPHOS 33* AST 101* ALT 49* Hemoglobin A1c: Recent Labs 11/11/22 1324 HGBA1C 7.1* Imaging: POC US VAT LINE PLACEMENT Final Result TRANSTHORACIC ECHO (TTE) COMPLETE Final Result Recommendations at top of note Nicole Mulligan, MS4 Gastroenterology & Hepatology Associated attestation - Stephon Muro MD - 11/12/20222053 EDT GI Attending Attestation: The patient was seen and examined by me with the fellow/resident. I agreewith the history and physical exam. I agree with the impression and plan. * Randy Sebastian MD - 11/12/2022 0806 EDT STAFF ATTESTATION: I, Randy Sebastian MD, have seen and examined this patient on 11/12. I have reviewed and edited the details outlined by my colleague, Dr. Kebede, in this note as needed and have put gonzalez changes. I would add the following gonzalez elements of the patient's history, physical exam and plan after my personal evaluation. Randy Sebastian MD 11/12/2022 12:54 CARDIOLOGY - Follow up Follow up for elevated troponin in setting of acute GI bleed. Assessment/Plan: Fortunato Hart is a 72 y.o. female patient with a h/o paroxysmal A-fib on eliquis, aortic stenosis, chronic mild troponin elevation, 2nd degree type 1 AV block, history of VT arrythmia (1 episode 08/2019 w/ negative MPI) and recently NSVT on Ziopatch, CVA in 2019 (on ASA), HTN, HLD, Parkinson's Disease, IDDM2 , & recent syncope currently with Ziopatch transferred to [facility] from [facility] on 11/11/2022 for GIB and NSTEMI for which Cardiology is consulted. #: Acute Melena and Anemia #: NSTEMI favor type 2 d/t below #: Suspected Hypertrophic Cardiomyopathy #: ECG changes c/w LVH associated repolarization #: Recent Syncope Suspect NSTEMI 2 d/t GIB and Apical HCM. While normally would want to r/o CAD with a C, her current GIB makes doing so unsuitable (again suspect demand SC. From our discussion with Fortunato, it seemsshe has been told she has HCM in the past my a physician in [place], but not much additional work up (including genetic was followed up on). In this sense, we agree with focusing on the GIB at this time. Having said that, there are numerous aspects of Fortunato care will require additional thought d/t HCMincluding h/o VT on monitor and recent episode of syncope (which is likely d/t decreased preload from GIB as syncope). Again, at a more suitable time, we do want to pursue C, but in context of her active GIB we will defer. When more stable we would like to obtain a cardiac MRI to better assess her myocardium. - Agree with evaluation of GIB. - Discontinue trending troponin unless acute change in clinical status - Hold antiplatelet and 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 with active GIB - Consider starting low dose BB (Metoprolol tartrate 12.5q12 for HCM) when more stable from an anemia stand point - IF HR is more suitable then recommend cMRI before discharge to assess for subendocardial LGE and HCM - Will need Event monitor on [facility] as outpatient given h/o NSVT and HCM - Outpatient cardiology f/u at [facility] Outpatient genetic mutation evaluation Interval History O/N: No acute events overnight. ROS: +: transiently SOB -: chest pain, palpitations Physical Exam VS: Patient Vitals for the past 8 hrs: BP Heart Rate Resp Temp SpO2 O2 Device 11/12/22 0700 (!) 142/90 89 BPM 16 -- 97 % -- 11/12/22 0600 141/73 78 BPM 17 -- 95 % -- 11/12/22 0500 (!) 150/81 90 BPM 13 -- 96 % -- 11/12/22 0400 140/59 93 BPM 10 36.7 ??C (98 ??F) 95 % None 11/12/22 0200 (!) 145/68 85 BPM 10 -- 98 % -- 11/12/22 0100 (!) 144/58 87 BPM 18 -- 100 % -- Weight: Weight : 78.9 kg (174 lb) BMI: Body mass index is 29.87 kg/m??. Tele: sinus tach 90s-100s I/O: +405/-1010 Gen: NAD, Awake, Alert, Oriented x4,Wearing hospital scrubs lying comfortably in bed HEENT: NC/AT. anicteric sclerae, non injected conjunctivae Cardiac: RRR, normal S1/S2, no MRG, unable to assess JVD due to body habitus. +2 pulses in radius b/l, +2 pulses in femoral, trace LE edema with R>L Lungs: LCTA b/l, Non labored and symmetrical breathing, No w/r/c Skin: Mild pallor, but No jaundice, No rashes, Warm, Dry, Intact Data: TTE 11/11: ??? Left Ventricle: The left ventricular cavity was small in size. Left ventricular systolic function was hyperdynamic with an ejection fraction =>65%. There was severe asymmetric hypertrophy of the left ventricle. Left ventricular wall motion was normal; there were no regional wall motion abnormalities. ??? Right Ventricle: The right ventricular cavity was normal in size. Right ventricular systolic function was normal. 11/11/2022 ECG Sinus with 1st degree AVB. PAC. LVH with repolarization changes similar to ECG in 201801/15/20 [place] SPECT Normal perfusion by Tc99m Sestamibi Imaging. Abnormal contraction consistent with cardiomyopathy. Low risk of cardiac events, but higher compared to non- diabetics. Summary: Myocardial perfusion imaging: No myocardial perfusion defects noted. The left ventricular end-systolic volume is 67ml. The calculated left ventricular ejection fraction after stress: 45%. LV global systolic function is mildly reduced. No left ventricular regional motion abnormality.Stress ECG conclusions: The stress ECG is negative. Baseline ECG: Sinus bradycardia with 1degrees AV block and a nonspecific intraventricular co nduction defect. 12/18/20 TTE ([facility]) LV is normal size and function. EF 55% with no segmental wall motion abnormality. There is severe concentric LVH. RV normal size and function. Left atrium and right atrium normal size. There is no significant valvular disease. BMP: Recent Labs 11/11/22 1324 11/11/22 2044 NA 139 139 K 4.6 4.4 CL 108 111* CO2 16* 19* BUN 50* 48* CREATININE 1.17* 1.07* CALCIUM 8.7 8.8 MG 2.0 -- LABALBU 3.2* -- LFT: Recent Labs 11/11/22 1324 TBIL 0.7 ALKPHOS 33* AST 101* ALT 49* CBC: Recent Labs 11/11/22 1324 11/11/22 1822 11/12/22 0723 WBC 14.11* 14.72* 25.34* RBC 2.96* 2.83* 2.30* HGB 9.0* 8.6* 7.1* HCT 25.9* 24.7* 20.0* MCV 88 87 87 MCH 30.4 30.4 30.9 MCHC 34.7 34.8 35.5 PLT 178 194 189 NEUTROABS 10.55* -- -- Cardiac Markers: Recent Labs 11/11/22 1324 TROPONINI 34.700* Hemoglobin A1c: Recent Labs 11/11/22 1324 HGBA1C 7.1* Coags: Recent Labs 11/11/22 1324 PROTIME 13.5* INR 1.2* PTT 22* Staffed w/ Dr. Sebastian. Joseph Fowler MS4 Fellow Attestation: I have seen and examined the patient with the medical student. I have reviewed the imaging and history as documented. I agree with the assessment and plan. Ty Kebede Make Ready Worker PGY4 Pager: [phone] Some of this note was transcribed with dictation software. While it was proofread, it may still contain unnoticed grammatical or word errors due to incorrect transcribing. * Randy Sebastian MD - 11/11/2022 1427 EDT STAFF ATTESTATION: I, Randy Sebastian MD, have seen and examined this patient on 11/11. I have reviewed and edited the details outlined by my colleague, Dr. Kebede, in this note as needed and have put gonzalez changes. I would add the following gonzalez elements of the patient's history, physical exam and plan after my personal evaluation. Randy Sebastian MD 11/30/2022 21:29 Cardiology Consult: Date: 11/11/2022 Outpatient Jordan Man: Carlos Macario NP Consulting Reasons: Elevated troponin with EKG changes Assessment & Recommendations Fortunato Hart is a 72 y.o. female patient with a h/o paroxysmal A-fib on eliquis, aortic stenosis, chronic mild troponin elevation, 2nd degree type 1 AV block, history of VT arrythmia (1 episode 08/2019 w/ negative MPI), CVA in 2019 (on ASA), HTN, HLD, Parkinson's Disease, IDDM2 , & recent syncope currently with Ap transferred to [facility] from [facility] on 11/11/2022 for GIB and NSTEMI for which Cardiology is consulted. #: Acute Melena and Anemia #: NSTEMI favor type 2 d/t below #: Suspected Hypertrophic Cardiomyopathy #: ECG changes c/w LVH associated repolarization #: Recent Syncope Has sx c/w cardiac chest pain. Upon review of ECG and TTE, suspect her troponin elevation is more likely d/t demand from anemia/melena/GIB as well as what is concerning for HCM on TTE. While normallywould want to r/o CAD with a LHC, her current GIB makes doing so unsuitable (again suspect demand SC. From our discussion with Fortunato, it seems she has been told she has HCM in the past my a physician in [place], but not much additional work up (including genetic was followed up on). In this sense, we agree with focusing on the GIB at this time. Having said that, there are numerous aspects of Fortunato care will require additional thought d/t HCMincluding h/o VT on monitor and recent episode of syncope (which could be d/t decreased preload from GIB as syncope and GIB began ~ Wednesday). Again, at a more suitable time, we do want to pursue LHC, but in context of her active GIB we will defer. When more stable we would like to obtain a cardiac MRI to better assess her myocardium. - Agree with evaluation of GIB. Agree with keeping Hgb>8 given dramatic troponin elevation. - Recommend trending trops to peak - Recommend holding antiplatelet and 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 at this time with active GIB When suitable recommend resuming 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 but would start with heparin gtt - Agree with holding antihypertensives IF antihypertensives are needed consider starting with low dose BB in effort to decrease demand on heart - Will need outpatient cardiology follow up at [facility] (Fortunato agrees to this) - Agree with monitoring on telemetry while admitted History of Present Illness Fortunato initially presented to her PCP's office yesterday for chest pressure and two recent syncopalepisodes. An EKG was reassuring at this time, though she developed another episode of chest pressure yesterday evening, for which she ultimately went to the ED at [facility]. She reports that she has been experiencing intermittent episodes of chest pressure that last a couple of minutes over the past two weeks or so.They have resolved on their own, though they do not necessarily seem to be related to exertion. She had two syncopal episodes on Wednesday, and since then has also noted dark black stools. She endorses diaphoresis with some of these episodes. She denies shortness of breath or worsening edema. She says that she is still having melena currently in the hospital. She denies ryan blood inher stools. She has had some recent epigastric pain that she associates with eating. In the [facility] ED she was found to have a Hbg of 9.9, which subsequently dropped to 7.1, as well as anelevated troponin (?[address] Pizano's telephone encounter) which began to downtrend prior to [facility]transfer [facility]. She was given 2 units pRBC's, and EGD revealed esophagitis and blood clots in the stomach, but no active bleeding. In the feeder driver of 11/11 she had two bouts of hematemesis (1.5 cups + 475 cc respectively), received 2 more units pRBC's, 2 units FFP, and PCC. Octreotide infusion and Protonix were started, and she was transferred to [facility]. Eliquis and ASA last taken on 11/09. Upon arrival to [facility], Fortunato was found to have ECG c/f acute myocardial injury as well as a troponin of ~ 35 for which Cardiology was consulted. Review of Systems (Negative if not checked) Volume Overload: [x] RODRIGUEZ [] Orthopnea [] LE edema [] Weight Gain [] Nausea Arrhythmia: [x] Palpitations [] Lightheaded [] Presyncope [x] Syncope CAD: [] Chest pain [x]Chest pressure [] Decreased exertional tolerance PAD: [] Claudications [] Resting leg pain [] Changes in vision [] Changes in Hearing [] Changes in Speech [] Inability to move UE and LE [] Difficulty with understanding speech Bleeding: [] Hematuria [] Hematochezia [x] Melena [x] Hematemesis Cardiac Risk Factors: CAD: [] CAC [] Yes [x] No [] Unknown Tobacco use: [] Active [] Quit [x] No HTN: [x] Yes [] No HLD: [x] Yes [] No DM: [x] Yes [] No [] Unknown Family h/o early CAD: [] Yes [x] No [] Unknown PMH PSH Past Medical History: Diagnosis Date ??? Cerebrovascular accident (CVA) ([facility]) (HCC) ([facility]) 06/01/2019 ??? Diabetes mellitus, type 2 (HCC) ([facility]) 01/26/2011 On metformin On metformin ??? Essential hypertension 06/01/2019 ??? Mixed hyperlipidemia 06/05/2019 ??? Nonrheumatic aortic valve stenosis 06/01/2019 ??? Paroxysmal atrial fibrillation ([facility]) ([facility]) 06/01/2019 No past surgical history on file. Social History Family History Social History Tobacco Use ??? Smoking status: Never ??? Smokeless tobacco: Never Substance Use Topics ??? Alcohol use: Not on file EtoH: [] Yes [x] No Illicits: [] Yes [x] No No family history on file. Premature CVA/SC: [] Yes [x] No` Sudden : [] Yes [x] No Medications No current facility-administered medications on file prior to encounter. Current Outpatient Medications on File Prior to Encounter Medication Sig Dispense Refill ??? acetaminophen (TYLENOL 8 HOUR) 650 mg CR tablet 2 tab(s) orally twice a day, only as needed ??? apixaban (ELIQUIS) 5 mg tablet Take 5 mg by mouth 2 times daily. ??? aspirin 81 mg EC tablet Take 81 mg by mouth daily. ??? BD ULTRA-FINE MICRO PEN NEEDLE 32 gauge x 1/4 needle ??? blood glucose meter by [facility] [place] (non-drug; combo route) route daily. One touch verio meter or best covered by insurance. 1 Each 0 ??? candesartan (ATACAND) 32 mg tablet Take 32 mg by mouth daily. ??? cetirizine (ZYRTEC) 10 mg tablet Take 10 mg by mouth daily. ??? Cholecalciferol, Vitamin D3, 10 mcg (400 unit) tablet Take 400 Units by mouth daily. ??? cyanocobalamin (VITAMIN B-12) 500 mcg tablet Take 500 mcg by mouth daily. ??? empagliflozin (JARDIANCE) 10 mg tablet Take 1 Tablet by mouth daily. (Patient not taking: Reported on 09/16/2021) 90 Tablet 2 ??? flash glucose scanning reader (TattoodoSTYLE VICKY 2 READER) misc 1 Device by mis (non-drug; comboroute) route daily. Dispense one reader [...] mg by mouth 2 times daily. ??? mupirocin (BACTROBAN) 2 % ointment APPLY ONE APPLICATION TOPICALLY TO AFFECTED AREA THREE TIMESA DAY FOR 10 DAYS (Patient not taking: Reported on 09/16/2021) ??? ONETOUCH ULTRA BLUE TEST STRIP test strips TEST BLOOD GLUCOSE THREE TIMES DAILY ??? OZEMPIC 1 mg/dose (4 mg/3 mL) pen injector 1 mg once a week. ??? REPATHA SYRINGE 140 mg/mL syringe INJECT 1 SYRINGE SUBCUTANEOUSLY EVERY 2 WEEKS ??? UNIFINE PENTIPS Allergies Allergies Allergen Reactions ??? Iodinated Contrast Media [...] ??? Propoxyphene N-Acetaminophen Other reaction(s): Hallucinations ??? Obdclyl-Eml-Kiw Reductase Inhibitors ??? Trulicity [Dulaglutide] Gi Side effect Physical Exam BP (!) 131/95 Temp 37.5 ??C (99.5 ??F) (Axillary) Resp 19 Ht 162.6 cm (64) Wt 78.9 kg (174lb) SpO2 97% BMI 29.87 kg/m?? Tele: 70-90s. Sinus with PAC and PVC GEN: 72yof appearing pale. NAD, A&Ox4. HEENT: conjunctival pallor and pale lips CV: RRR, no m/r/g, JVP unable to be assess d/t body habitus. LE with no edema RESP: LCTA. No w/r/c. NLSB b/l SKIN: w/d/I Labs BMP: Recent Labs 11/11/22 1324 NA 139 K 4.6 CL 108 CO2 16* BUN 50* CREATININE 1.17* CALCIUM 8.7 MG 2.0 LABALBU 3.2* LFT: Recent Labs 11/11/22 1324 TBIL 0.7 ALKPHOS 33* AST 101* ALT 49* CBC: Recent Labs 11/11/22 1324 WBC 14.11* RBC 2.96* HGB 9.0* HCT 25.9* MCV 88 MCH 30.4 MCHC 34.7 PLT 178 NEUTROABS 10.55* Cardiac Markers: Recent Labs 11/11/22 1324 TROPONINI 34.700* Coags: Recent Labs 11/11/22 1324 PROTIME 13.5* INR 1.2* PTT 22* Imaging & Other Studies 11/11/2022 ECG Sinus with 1st degree AVB. PAC. LVH with repolarization changes similar to ECG in 2019 11/11/2022 TTE Per my read c/f HCM. Formal read pending 01/15/20 NM SPECT Normal perfusion by Tc99m Sestamibi [facility]. Abnormal contraction consistent with cardiomyopathy. Low risk of cardiac events, but higher compared to non- diabetics. Summary: Myocardial perfusion imaging: No myocardial perfusion defects noted. The left ventricular end-systolic volume is 67ml. The calculated left ventricular ejection fraction after stress: 45%. LV global systolic function is mildly reduced. No left ventricular regional motion abnormality.Stress ECG conclusions: The stress ECG is negative. Baseline ECG: Sinus bradycardia with 1degrees AV block and a??nonspecific intraventricular c onduction defect. 12/18/20 TTE ([facility]) LV is normal size and function. EF 55% with no segmental wall motion abnormality. There is severe concentric LVH. RV normal size and function. Left atrium and right atrium normal size. There is no significant valvular disease. This case will be staffed with Dr. Jaz Jimenez MS4 ATTESTATION: I have reviewed and examined the patient with medical student Tiffanie Jimenez. I agree with the assessment and plan as shown above. Ty Kebede Make Ready Worker PGY4 Some of this note was transcribed with dictation software. While it was proofread, it may still contain unnoticed grammatical or word errors due to incorrect transcribing. documented in this encounter Miscellaneous Notes * Plan of Care - Steve Sanchez RN - 11/14/2022 1616 EDT Problem: Daily Care Plan Goals Goal: Care Plan Documentation Note: Nursing Discharge Note D: Patient noted with discharge orders to: home. A: Prescriptions faxed to pharmacy. Reviewed discharge instructions and prescriptions with Patient and Family IV d/c'd. Belongings collected and sent home with patient. R: Patient and Family verbalized understanding of discharge instructions and denied further questions. STEVE SANCHEZ RN 11/14/2022 16:16 * Plan of Care - Kalyani Olguin RN - 11/14/2022 1137 EDT Problem: High Fall Risk: Goal: Patient Will Remain Free from Fall-Related Injury Outcome: Ongoing Problem: Daily Care Plan Goals Goal: Care Plan Documentation Outcome: Ongoing Flowsheets (Taken 11/14/2022 5094) Area of Focus: Safety Goal This Shift: Pt will remain free of falls during this shift Data: Assumed care at 0700. Admitted for upper GI bleed along with chest pressure and multiple syncope episodes. PMHx significant for T2DM, HTN, HLD, CVA (2019), Afib on eliquis, and prior kidney stones. Received 4 units of pRBC and 2 units of FFP in MICU. A&Ox3. On RA. Consistent carb diet, ACHS. Skin intact. Encouraged pt to walk to bathroom as tolerated with 1 assist. Action: Hourly and safety checks completed. Scheduled medications given per eMAR. Response: Pt resting in bed comfortably. Call woods and personal belongings at bedside. Makes needs known. Will continue to monitor per plan. Possible D/C today or tomorrow. KALYANI OLGUIN RN 11/14/2022 11:37 * Plan of Care - Raad Pritchard RN - 11/14/2022 0116 EDT Patient to sleep though the night ,monitor BS * Transfer Summary (Intrafacility) - Trisha Fulton MD - 11/13/2022 1122 EDT Hospital Medicine Admission History & Physical Service Date: 11/13/2022 Admit Date: 11/11/22 Primary Care Provider: Bryant Crain Chief Complaint: GI bleed HPI Fortunato Hart is a 72 y.o. female with a PMHx of paroxysmal Afib on eliquis, 2nd degree heart block, CVA on asa, HTN, HLD, and T2DM on insulin who initially presented to [facility] with chest pain, syncope. She was ultimately found to have elevated troponin, hematemesis, and melena and was sent to [facility] MICU for further management. In brief, patient had 1 week of melanotic stools prior to initial presentation. She had multiple episodes of chest pain and 2 episodes of syncope, prompting evaluation in [facility] ED. While there, she was found to have hemoglobin 9.9 -->7.1 which was treated with 2u pRBCs. She had an EGD at outside hospital showing mild esophagitis and old blood in stomach, but no active bleed. She later had signif icant hematemesis resulting in the need for 2 units additional pRBCs and 2units FFP as well as Kcentra. She was transferred to [facility] MICU for GI bleed and NSTEMI. On arrival to [facility] MICU, she was stable on room air and was not requiring blood pressure support. She had some mild chest pressure, hemoptysis, and melena shortly before arrival. While admitted in MICU she had a repeat EGD showing red blood in body of stomach suggestive of recent bleeding, scattered petechiae within body as potential bleeding source, circumferential erosion in the duodenal bulb,overall no evidence of active bleeding. Patient's hemoglobin stabilized and she was continued on BID PPI per GI recs. Unclear why she was on octreotide and for how long, no evidence of cirrhosis in chart. No alcohol use, nonsmoker, no recreational drugs, no herbal supplements. 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 She arrived with Zio patch in place for further workup. Has not formally been worked up for this issue with cardiology. While troponin remains high, it is adynamic and has slightly downtrended. Patient now on the floor as she has stabilized from acute GI bleed. She is feeling well overall. Has not had more than ren maxime to eat/drink, but excited to start this. Denies chest pain, SOB, palpitations, headaches, abdominal pain, nausea. Last emesis 2-3 days ago. Last BM yesterday which was still dark/black. Otherwise doing well, worried that she scared her with her episodes of syncope. Review of Systems A complete 10 point ROS was performed and pertinent positive and negative findings listed in HPI, otherwise negative. Past Medical History: Diagnosis Date ??? Cerebrovascular accident (CVA) ([facility]) 06/01/2019 ??? Diabetes mellitus, type 2 ([facility]) 01/26/2011 On metformin On metformin ??? Essential hypertension 06/01/2019 ??? Mixed hyperlipidemia 06/05/2019 ??? Nonrheumatic aortic valve stenosis 06/01/2019 ??? Paroxysmal atrial fibrillation ([facility]) ([facility]) 06/01/2019 No past surgical history on file. Social History Tobacco Use ??? Smoking status: Never ??? Smokeless tobacco: Never Substance Use Topics ??? Alcohol use: Not on file No family history on file. No current outpatient medications on file. Allergies Allergen Reactions ??? Iodinated Contrast Media [...] ??? Propoxyphene N-Acetaminophen Other reaction(s): Hallucinations ??? Qqcccxj-Nhn-Vvy Reductase Inhibitors ??? Trulicity [Dulaglutide] Gi Side effect Objective Vitals Temp: [36.5 ??C (97.7 ??F)-36.9 ??C (98.4 ??F)] , Heart Rate: [60 BPM-102 BPM] , Pulse: [82] , Resp: [0-26] , BP: (114-155)/(50-80) , SpO2: [91 %-100 %] , O2 Flow Rate (L/min): 0 l/min Numeric Pain Level (Scale 1-10): 0 Weight: Weight : 78.9 kg (174 lb) Body mass index is 29.87 kg/m??. Physical Exam General: Resting comfortably, cooperative, interactive, conversant HEENT: Normocephalic, atraumatic, normal sclera & conjunctivae, EOM grossly, no nasal discharge, MMM Pulm: CTAB in anterior and lateral lung sloan, no wheeze or crackles appreciated Cardio: RRR, no murmurs appreciated Abdomen: Soft, non-tender, non-distended Extremities: No edema or cyanosis Neuro: Alert, oriented. No dysarthria or facial droop, moving all 4 extremities Skin: No jaundice or rashes on visible skin. Not significantly pale ( reports color has largely returned to baseline) Psych: Normal mood and affect Labs I have personally reviewed Recent Labs 11/11/22 1324 11/11/22 1822 11/13/22 0628 WBC 14.11* < > 23.98* RBC 2.96* < > 2.68* HGB 9.0* < > 8.4* HCT 25.9* < > 23.2* MCV 88 < > 87 MCH 30.4 < > 31.3 MCHC 34.7 < > 36.2* PLT 178 < > 172 NEUTROABS 10.55* -- -- < > = values in this interval not displayed. Recent Labs 11/11/22 1324 11/11/22 2044 11/12/22 1147 NA 139 < > 136 K 4.6 < > 4.6 CL 108 < > 107 CO2 16* < > 21* BUN 50* < > 46* CREATININE 1.17* < > 1.07* CALCIUM 8.7 < > 9.2 MG 2.0 -- 2.1 LABALBU 3.2* -- -- < > = values in this interval not displayed. Recent Labs 11/11/22 1324 PROTIME 13.5* INR 1.2* PTT 22* Recent Labs 11/11/222043 TROPONINI 32.500* Recent Labs 11/11/22 1324 TBIL 0.7 ALKPHOS 33* AST 101* ALT 49* Imaging No results found. Assessment Fortunato Hart is a 72 y.o. female with a PMHx significant for paroxysmal atrial fibrillation on Eliquis, aortic stenosis, second-degree heart block, hypertension, hyperlipidemia, type 2 diabetes, CVA who presented as a transfer from [facility] with upper GI bleed and NSTEMI. Patient was briefly admitted to the MICU and has received a total of 4 units PRBCs, 2 units FFP. Her hemoglobin has now stabilized and she is safe for the floor. She is hemodynamically stable and overall well-appearing. Plan tocontinue supportive care and advance diet as tolerated. Cardiology following for NSTEMI likely in the setting of apical HCM. Will consider completing some of necessary work-up inpatient if patient remains admitted, otherwise will need close outpatient follow-up. Plan #UGI bleed #Acute blood loss anemia Likely in the setting of duodenal erosion, EGD also noted petechiae in stomach. No active bleed on recent EGD with [facility]. Hemoglobin has stabilized. Status post 4 units PRBCs, 2 units FFP - GI consulted, appreciate recs -protonix 40mg BID x 8 weeks - would need daily PPI indefinitely if aspirin is continued -soft consistent carb diet -CBC??Q6 --> spaced to q 12hours - transfuse for Hgb <8 given cardiac concerns - avoid NSAIDs #NSTEMI favor type 2 d/t GIB and apical HCM #Suspected Hypertrophic Cardiomyopathy?? Cardiology currently following. Patient knew about big heart, probably from prior to arrival, although has not been formally worked up. While admitted, has had elevated but adynamic troponin.EKG noted to have changes consistent with LVH associated repolarization. She was also having multiple episodes of syncope prior to initial presentation concerning for HCM. - cardiology following, appreciate recs - d/c trop trend, peaked 11/12 - ischemic eval as outpatient - start 12.5mg metoprolol tartrate q 12 hours - patient confirmed allergy to atenolol, states that she developed side effects after years of use, not sure what they were but thinks potentially SOB -Monitor on telemetry - per cardiology: - IF HR is more suitable then recommend cMRI before discharge to assess for subendocardial LGE and HCM - Will need Event monitor on MCOT as outpatient given h/o NSVT and HCM - Outpatient cardiology f/u at [facility] -Outpatient genetic mutation evaluation #Paroxysmal Afib on RECORD PRODUCER eliquis - HOLD RECORD PRODUCER eliquis given acute bleed #T2DM: Last hemoglobin A1c 7.1% on 11/11/2022. - SSI - lantus 20 units - FSBG with meals and at bedtime - gabapentin 600 mg BID #HTN #HLD - hold??RECORD PRODUCER??candasartan given recent acute bleed -Trend blood pressure with every 8 hours vitals VTE prophylaxis: contraindicated due to GI bleed Code: Full Code Consults:??cards??and GI?? Discharge Plan:??Uncertain at this time Admission status Inpatient admission due to anticipated duration of hospitalization is two midnights or greater due to gi bleed. Discussed with Dr. Shawna Terry and [facility] team. TRISHA FULTON MD 11/13/2022 11:22 Associated attestation - Shawna Terry MD MPH - 11/14/2022 0725 EDT Attending Attestation I have interviewed and examined the patient. I personally reviewed laboratories studies, radiographic studies, ECG, and prior records. I discussed the case with: Dr. Fulton. I agree with and edited (inpurple) the findings and plan of care as documented in the note below. In summary, 72 yo F w hx of AF (on apixaban),CVA, IDMM2, HTN who presented from [facility] with NSTEMI, syncope, and melana. EGD at [facility] showed esophagitis. She then developed hematemesis and transferred to [facility] MICU. Trop peaked at 34.7. Repeat EGD showed grade B esophagitis, scattered petechiae in thestomach and erosion in the duodenal bulb. She received a total of 4 units pRBC, 2 units FFP, and Kce ntra. TTE showed severe LVH, but no WMA and LVEF >65% (suspected HCM)). NSTEMI felt to be 2/2 demand. Patient now stable for transfer to the floor. Will continue BID PPI and obtain cardiac MR. Shawna Terry MD MPH * Plan of Care - Andrea Lee RN - 11/13/2022 1026 EDT Problem: Daily Care Plan Goals Goal: Care Plan Documentation Outcome: Ongoing Note: Pt's morning CBC stable, alert & oriented, VSS, afebrile, diet advanced, pt c/o intermittent mild nausea and dizziness, no emesis, no BM overnight or this morning, transfer orders written, handoff report given to JALEN Samson and pt transferred to [place] [id number] at 1045. Problem: HEMODYNAMIC STATUS Goal: Patient Has Stable VS & Fluid Balance Outcome: Ongoing Problem: ELIMINATION Goal: Elimination Patterns Are Normal Or Improving Outcome: Ongoing Problem: HEMODYNAMIC STATUS Goal: Patient Has Stable VS & Fluid Balance Outcome: Ongoing Problem: FLUID AND ELECTROLYTE IMBALANCE Goal: Fluid and electrolyte balance are achieved/maintained and infant exhibits signs of adequate hydration Outcome: Ongoing Problem: ANXIETY Goal: Anxiety Is At Manageable Level Outcome: Ongoing Problem: NUTRITION Goal: Nutritional Status Is Improving Outcome: Ongoing Problem: High Fall Risk: Goal: Patient will Remain Free of Falls due to Med. Side Effects Outcome: Ongoing Problem: High Fall Risk: Goal: Patient Will Remain Free from Fall-Related Injury Outcome: Ongoing Problem: High Fall Risk: Goal: Patient will Remain Free of Falls due to Altered Elimination Outcome: Ongoing Problem: High Fall Risk: Goal: Patient will Remain Free of Falls due to Dizziness/Vertigo Outcome: Ongoing Problem: Sensory: Goal: Ability to compensate for vision loss will be supported Outcome: Ongoing Problem: SKIN INTEGRITY Goal: Skin integrity will improve or be maintained Outcome: Ongoing Problem: Pressure Ulcer Prevention Goal: Absence Of Pressure Ulcer Outcome: Ongoing Problem: Risk For Imapaired Skin Integrity Goal: Incontinence Is Managed Outcome: Ongoing Problem: Impaired Skin Integrity Goal: Signs of wound healing will improve Outcome: Ongoing * Plan of Care - Makenna Carmichael MD - 11/13/2022 0948 EDT Hospitalist Patient Transfer Request Requesting Unit: MICU Requesting Provider: Rajinder Glez MD Date: 11/13/22 Time of Call: 9:48 History: 72 y.o. female admitted to MICU on 11/11/2022 as a transfer from [facility] for syncope, hematemesis, upper GI bleed. At [facility] she received 4 units pRBC, 2 units FFP, Kcentra. Underwent EGD that showed esophagitis and old blood in stomach. Rising troponin and recurrent hematemesis prompting transfer to [facility] MICU. Underwent repeat EGD that show esophagitis, old blood, and non-bleeding duodenal erosion. Received two additional units pRBC. Has been stable here since yesterday and never required pressors. Has been followed by cardiology for HCM, with consideration of PPM, and has Zio patch in place now. Will consider cardiac MRI inpatient if able. Assessment/Plan: - Patient is accepted to Adult Hospital Medicine service when a bed becomes available. - Please call pager #[phone] Admitting Hospitalist when patient arrives to the floor. Makenna Carmichael MD * Plan of Care - Yecenia Cheung RN - 11/13/2022 0642 EDT Assumed care of patient at 1900, patient in room in no apparent distress. Hemodynamically stable overnight, AM labs pending at this time. Patient reports she slept really well overnight and feels great this morning. See assessment for more info. Problem: HEMODYNAMIC STATUS Goal: Patient Has Stable VS & Fluid Balance Outcome: Ongoing Problem: Daily Care Plan Goals Goal: Care Plan Documentation Outcome: Ongoing Problem: ELIMINATION Goal: Elimination Patterns Are Normal Or Improving Outcome: Ongoing * Plan of Care - Yecenia Cheung RN - 11/12/2022 0559 EDT Assumed care of patient at 1900, patient in no apparent distress. VSS overnight, 1 small episode ofmelena noted, no hematemesis. Overnight CBC delayed due to multiple specimens clotting, MD aware. AM CBC pending. Problem: HEMODYNAMIC STATUS Goal: Patient Has Stable VS & Fluid Balance Outcome: Ongoing Problem: Daily Care Plan Goals Goal: Care Plan Documentation Outcome: Ongoing Problem: ELIMINATION Goal: Elimination Patterns Are Normal Or Improving Outcome: Ongoing * Plan of Care - Winter Novak RN - 11/11/2022 1531 EDT FOUR EYES SKIN ASSESSMENT Four Eyes skin assessment was performed on admission to the unit by Winter Novak RN and Fan Rinaldi, RN. Patient has the following devices at the time of this assessment: BP cuff, Peripheral IV, O2 sat probe and Covarrubias. Device related pressure injury present? No All skin intact verified by: Winter Novak RN. Last Jose Score: 17 Instructions: ??? Add LDA for any identified wounds ??? Add [place] image for any suspected PI or non surgical wounds ??? Order wound consult if suspected PI identified ? ? If Jose is < or = to 16, initiate Pressure Injury Prevention Bundle ([id number]). 11/11/2022 15:32 documented in this encounter Plan of Treatment Upcoming Encounters Date Type Department Care Team (Late st Contact Info) Description 03/08/2024 9:30 EDT Ancillary Procedure [facility] Cardiology - [facility] [address] [place] [address] 03/08/2024 10:15 EDT Ancillary Procedure [facility] [place] [address] 04/05/2024 10:00 EDT Ancillary Procedure [facility] [address] [place] [address] [id number] 04/05/2024 10:00 EDT Office Visit [facility] [address] [place] [phone] Carlos Macario NP [address] [place] [address]-[address] [place] [address] Pending Results Name Type Priority Associated Diagnoses Date /Time TYPE AND SCREEN Blood Bank STAT 9:23 EDT Scheduled Orders Name Type Priority Associated Diagnoses Orde r Schedule TYPE AND SCREEN Blood Bank STAT One Time STAT for 1 Occurrences starting 11/12/2022 until 11/12/2022 MR CARDIAC W WO CONTRAST Imaging Routine NSTEMI (non-ST elevated myocardial infarction) (HCC-CMS) Hypertrophic cardiomyopathy (HCC-CMS) NSVT (nonsustained ventricular tachycardia) (HCC-CMS) Expected: 11/16/2022, Expires: 05/17/2024 Scheduled Referrals Name Type Priority Associated Diagnoses Orde r Schedule AMB CONS/FOLLOW UP CARDIOLOGY Outpatient Referral Urgent NSTEMI (non-ST elevated myocardial infarction) (HCC-CMS) Hypertrophic cardiomyopathy (HCC-CMS) NSVT (nonsustained ventricular tachycardia) (HCC-CMS) Expected: 11/16/2022 (Approximate), Expires: 11/15/2023 AMB CONS/FOLLOW UP HOME HEALTH SERVICES Outpatient Referral Urgent Gastrointestinal hemorrhage, unspecified gastrointestinal hemorrhage type NSTEMI (non-ST elevated myocardial infarction) (HCC-CMS) Hypertrophic cardiomyopathy (HCC-CMS) Expected: 11/16/2022 (Approximate), Expires: 11/15/2023 AMB CONS/FOLLOW UP PRIMARY CARE PHYSICIAN - EXTERNAL Outpatient Referral Urgent Gastrointestinal hemorrhage, unspecified gastrointestinal hemorrhage type NSTEMI (non-ST elevated myocardial infarction) ([facility]-CMS) Acute blood loss anemia Hypertrophic cardiomyopathy ([facility]-CMS) NSVT (nonsustained ventricular tachycardia) ([facility]-CMS) Expected: 11/16/2022 (Approximate), Expires: 11/15/2023 documented as of this encounter Procedures Procedure Name Priority Date/Time Associated Diagnosis Comments ECG REPORT - SCANNED 12/01/2022 17:45 EDT ECG REPORT - SCANNED 11/19/2022 7:53 EDT POCT GLUCOSE, INTERFACED Routine 11/14/2022 17:00 EDT POCT GLUCOSE, INTERFACED Routine 11/14/2022 11:47 EDT POCT GLUCOSE, INTERFACED Routine 11/14/2022 9:46 EDT COMPLETE BLOOD COUNT Routine 11/14/2022 8:40 EDT POCT GLUCOSE, INTERFACED Routine 11/13/2022 21:16 EDT COMPLETE BLOOD COUNT Routine 11/13/2022 19:17 EDT POCT GLUCOSE, INTERFACED Routine 11/13/2022 17:09 EDT POCT GLUCOSE, INTERFACED Routine 11/13/2022 13:10 EDT SLIDE REQUEST Today 11/13/2022 11:45 EDT COMPLETE BLOOD COUNT Routine 11/13/2022 11:45 EDT ECG REPORT - SCANNED 11/13/2022 9:56 EDT POCT GLUCOSE, INTERFACED Routine 11/13/2022 8:09 EDT SLIDE REQUEST Today 11/13/2022 6:28 EDT COMPLETE BLOOD COUNT Routine 11/13/2022 6:28 EDT POCT GLUCOSE, INTERFACED Routine 11/13/2022 6:14 EDT POCT GLUCOSE, INTERFACED Routine 11/12/2022 23:54 EDT SLIDE REQUEST Today 11/12/2022 23:51 EDT COMPLETE BLOOD COUNT Routine 11/12/2022 23:51 EDT UPPER ENDOSCOPY PROCEDURE Routine 11/12/2022 20:51 EDT POCT GLUCOSE, INTERFACED Routine 11/12/2022 20:24 EDT SLIDE REQUEST Today 11/12/2022 19:39 EDT COMPLETE BLOOD COUNT Routine 11/12/2022 19:39 EDT POCT GLUCOSE, INTERFACED Routine 11/12/2022 18:27 EDT TRANSFUSE RED BLOOD CELLS Routine 11/12/2022 13:20 EDT POCT GLUCOSE, INTERFACED Routine 11/12/2022 12:04 EDT SLIDE REQUEST Today 11/12/2022 11:47 EDT COMPLETE BLOOD COUNT Routine 11/12/2022 11:47 EDT MAGNESIUM STAT 11/12/2022 11:47 EDT BASIC METABOLIC PANEL (BMP) STAT 11/12/2022 11:47 EDT CALCIUM, IONIZED STAT 11/12/2022 11:4 6 EDT TRANSFUSE RED BLOOD CELLS Routine 11/12/2022 11:25 EDT PREPARE RED BLOOD CELLS Routine 11/13/19 9:57 EDT PREPARE RED BLOOD CELLS STAT 11/13/19 9:57 EDT EKG 12-LEAD 11/12/2022 9:47 EDT POCT GLUCOSE, INTERFACED Routine 11/12/2022 9:44 EDT SLIDE REQUEST STAT 11/12/2022 9:24 EDT COMPLETE BLOOD COUNT STAT 11/12/2022 9:24 EDT PATIENT RE-TYPE Today 11/12/2022 9:23 EDT SLIDE REQUEST Today 11/12/2022 7:23 EDT COMPLETE BLOOD COUNT Routine 11/12/2022 7:23 EDT POCT GLUCOSE, INTERFACED Routine 11/12/2022 6:09 EDT POC US VAT LINE PLACEMENT Routine 11/12/2022 3:25 EDT COMPLETE BLOOD COUNT Routine 11/12/2022 3:22 EDT POCT GLUCOSE, INTERFACED Routine 11/12/2022 0:15 EDT POCT GLUCOSE, INTERFACED Routine 11/11/2022 20:49 EDT TROPONIN I Add-On 11/11/2022 20:44 EDT LACTIC ACID Routine 11/11/2022 20:44 EDT BASIC METABOLIC PANEL (BMP) Routine 11/11/2022 20:44 EDT POCT GLUCOSE, INTERFACED Routine 11/11/2022 18:26 EDT LACTIC ACID Routine 11/11/2022 18:22 EDT COMPLETE BLOOD COUNT Routine 11/11/2022 18:22 EDT TRANSTHORACIC ECHO (TTE) COMPLETE STAT 11/11/2022 15:05 EDT EKG 12-LEAD STAT 11/11/2022 14:07 EDT POCT GLUCOSE, INTERFACED Routine 11/11/2022 13:35 EDT TROPONIN I STAT 11/11/2022 13:24 EDT LACTIC ACID Routine 11/11/2022 13:24 EDT MRSA PCR Routine 11/11/2022 13:24 EDT PTT Routine 11/11/2022 13:24 EDT PROTIME STAT 11/11/2022 13:24 EDT HEPARIN LEVEL - UNFRACTIONATED HEPARIN STAT 11/11/2022 13:24 EDT FIBRINOGEN Routine 11/11/2022 13:24 EDT COMPLETE BLOOD COUNT AND DIFFERENTIAL STAT 11/11/2022 13:24 EDT TYPE AND SCREEN Routine 11/11/2022 13:24 EDT MAGNESIUM Routine 11/11/2022 13:24 EDT HEMOGLOBIN A1C Routine 11/11/2022 13:24 EDT COMPREHENSIVE METABOLIC PANEL (CMP) Add-On 11/11/2022 13:24 EDT documented in this encounter Results * CARDIAC EVENT MONITOR (12/30/2022 8:57 EDT) Anatomical Region Laterality Modality Other Narrative 12/30/2022 13:00 EDT 30 day event monitor for HCM Frequent multiform PVCs and 7 nonsustained VT runs, longest 12 consecutive beats Moderately frequent PACs Pt conducts with AV delay and IVCD Shawna Terry MD MPH CARDIAC SERVICE S ORDERABLES * ECG REPORT - SCANNED (12/01/2022 17:45 EDT) 12/01/2022 17:4 5 EDT Scan 2 Bottle Machine Operator PROCEDURE/MINOR CROW GICAL ORDERABLES * ECG REPORT - SCANNED (11/19/2022 7:53 EDT) 11/19/2022 7:53 EDT Scan 2 Bottle Machine Operator PROCEDURE/MINOR CROW GICAL ORDERABLES * (ABNORMAL) POCT GLUCOSE, INTERFACED (11/14/2022 17:00 EDT) Glucose, POC 229(H) 70 - 100 mg/dL 11/14/2022 17:01 EDT [facility] HN LAB POC COMMENT (GLUCOSE) Test Performed by Nursing Services 11/14/2022 17:01 EDT [facility] Blood CAPILLARY BLOOD / Unknown 11/14/2022 17:00 EDT 11/14/2022 17:01 EDT Stephon Sosa POINT OF CARE TEST O RDERABLES [facility] [address] [place] [address] * (ABNORMAL) POCT GLUCOSE, INTERFACED (11/14/2022 11:47 EDT) Glucose, POC 232(H) 70 - 100 mg/dL 11/14/2022 11:48 EDT [facility] HN LAB POC COMMENT (GLUCOSE) Test Performed by Nursing Services 11/14/2022 11:48 EDT [facility] Blood CAPILLARY BLOOD / Unknown 11/14/2022 11:47 EDT 11/14/2022 11:48 EDT Stephon Sosa POINT OF CARE TEST O RDERABLES Performing Organization Address City/[facility]/ZIP Co de Phone Number [facility] [address] [place] [address] * (ABNORMAL) POCT GLUCOSE, INTERFACED (11/14/2022 9:46 EDT) Glucose, POC 243(H) 70 - 100 mg/dL 11/14/2022 9:47 EDT [facility] HN LAB POC COMMENT (GLUCOSE) Test Performed by Nursing Services 11/14/2022 9:47 EDT [facility] Blood CAPILLARY BLOOD / Unknown 11/14/2022 9:46 EDT 11/14/2022 9:47 EDT Stephon Sosa POINT OF CARE TEST O RDERABLES Performing Organization Address [facility]/ZIP Co de Phone Number [facility] [address] [place] [address] * (ABNORMAL) COMPLETE BLOOD COUNT (11/14/2022 8:40 EDT) WBC 19.14(H) 4.00 - 12.40 K/cmm 11/14/2022 9:41 [facility] RBC 2.84(L) 3.86 - 5.04 M/cmm 11/14/2022 9:41 [facility] Hemoglobin 8.7(L) 11.6 - 15.2 g/dL 11/14/2022 9:41 [facility] HCT 25.0(L) 34.9 - 44.4 % 11/14/2022 9:41 [facility] MCV 88 81 - 98 fL 11/14/2022 9:41 [facility] MCH 30.6 26.7 - 33.3 pg 11/14/2022 9:41 [facility] MCHC 34.8 32.1 - 35.9 g/dL 11/14/2022 9:41 [facility] RDW-CV 14.3 <14.7 % 11/14/2022 9:41 EDT [facility] RDW-SD 43.5 <50.4 fl 11/14/2022 9:41 EDT [facility] PLT 199 141 - 377 K/cmm 11/14/2022 9:41 EDT [facility] MPV 11.9 9.5 - 12.7 fL 11/14/2022 9:41 EDT [facility] Nucleated Red Blood Cells 2(H) <=0 /100WBC'S 11/14/2022 9:41 EDT [facility] Blood VENOUS BLOOD / Unknown Venipuncture / Unknown 11/14/2022 8:40 EDT 11/14/2022 9:25 EDT Trisha Fulton MD HEMATOLOGY & PF4 ORD ERABLES Performing Organization Address City/[facility]/[place] Co de Phone Number [facility] [address] [place] [address] * (ABNORMAL) POCT GLUCOSE, INTERFACED (11/13/2022 21:16 EDT) Glucose, POC 265(H) 70 - 100 mg/dL 11/13/2022 21:18 EDT [facility] HN LAB POC COMMENT (GLUCOSE) Test Performed by Nursing Services 11/13/2022 21:18 EDT [facility] Blood CAPILLARY BLOOD / Unknown 11/13/2022 21:16 EDT 11/13/2022 21:17 EDT Stephon Sosa POINT OF CARE TEST O RDERABLES Performing Organization Address City/[facility]/ZIP Co de Phone Number [facility] [address] [place] [address] * (ABNORMAL) COMPLETE BLOOD COUNT (11/13/2022 19:17 EDT) WBC 19.01(H) 4.00 - 12.40 K/cmm 11/13/2022 19:33 EDT [facility] RBC 2.63(L) 3.86 - 5.04 M/cmm 11/13/2022 19:33 [facility] Hemoglobin 8.2(L) 11.6 - 15.2 g/dL 11/13/2022 19:33 [facility] HCT 22.8(L) 34.9 - 44.4 % 11/13/2022 19:33 [facility] MCV 87 81 - 98 fL 11/13/2022 19:33 [facility] MCH 31.2 26.7 - 33.3 pg 11/13/2022 19:33 [facility] MCHC 36.0(H) 32.1 - 35.9 g/dL 11/13/2022 19:33 [facility] RDW-CV 14.3 <14.7 % 11/13/2022 19:33 [facility] RDW-SD 44.0 <50.4 fl 11/13/2022 19:33 [facility] PLT 201 141 - 377 K/cmm 11/13/2022 19:33 [facility] MPV 11.3 9.5 - 12.7 fL 11/13/2022 19:33 [facility] Nucleated Red Blood Cells 2(H) <=0 /100WBC'S 11/13/2022 19:33 [facility] Blood VENOUS BLOOD / Unknown Venipuncture / Unknown 11/13/2022 19:17 EDT 11/13/2022 19:26 EDT Trisha Fulton MD HEMATOLOGY & PF4 ORD ERABLES [facility] [address] [place] [address] * (ABNORMAL) POCT GLUCOSE, INTERFACED (11/13/2022 17:09 EDT) Glucose, POC 212(H) 70 - 100 mg/dL 11/13/2022 17:11 [facility] HN LAB POC COMMENT (GLUCOSE) Test Performed by Nursing Services 11/13/2022 17:11 [facility] Blood CAPILLARY BLOOD / Unknown 11/13/2022 17:09 EDT 11/13/2022 17:11 EDT Stephon Sosa POINT OF CARE TEST O RDERABLES Performing Organization Address City/[facility]/ZIP Co de Phone Number [facility] [address] [place] [address] * (ABNORMAL) POCT GLUCOSE, INTERFACED (11/13/2022 13:10 EDT) Pathologist [facility] Glucose, POC 171(H) 70 - 100 mg/dL 11/13/2022 13:17 EDT [facility] HN LAB POC COMMENT (GLUCOSE) Test Performed by Nursing Services 11/13/2022 13:17 EDT [facility] Blood CAPILLARY BLOOD / Unknown 11/13/2022 13:10 EDT 11/13/2022 13:17 EDT Stephon Sosa POINT OF CARE TEST O RDERABLES Performing Organization Address City/[facility]/ZIP Co de Phone Number [facility] [address] [place] [address] * SLIDE REQUEST (11/13/2022 11:45 EDT) Pathologist [facility] Note A smear is filed in the Hematology lab. 11/13/2022 13:12 EDT [facility] Blood VENOUS BLOOD / Unknown Venipuncture / Unknown 11/13/2022 11:45 EDT 11/13/2022 12:30 EDT Stephon Sosa HEMATOLOGY & PF4 ORD ERABLES Performing Organization Address City/[facility]/ZIP Co de Phone Number [facility] [address] [place] [address] * (ABNORMAL) COMPLETE BLOOD COUNT (11/13/2022 11:45 EDT) Pathologist [facility] WBC 20.54(H) 4.00 - 12.40 K/cmm 11/13/2022 12:44 EDT [facility] RBC 2.66(L) 3.86 - 5.04 M/cmm 11/13/2022 12:44 [facility] Hemoglobin 8.2(L) 11.6 - 15.2 g/dL 11/13/2022 12:44 [facility] HCT 22.4(L) 34.9 - 44.4 % 11/13/2022 12:44 [facility] MCV 84 81 - 98 fL 11/13/2022 12:44 [facility] MCH 30.8 26.7 - 33.3 pg 11/13/2022 12:44 [facility] MCHC 36.6(H) 32.1 - 35.9 g/dL 11/13/2022 12:44 [facility] RDW-CV 14.4 <14.7 % 11/13/2022 12:44 [facility] RDW-SD 42.5 <50.4 fl 11/13/2022 12:44 [facility] PLT 185 141 - 377 K/cmm 11/13/2022 12:44 [facility] MPV 11.2 9.5 - 12.7 fL 11/13/2022 12:44 [facility] Nucleated Red Blood Cells 2(H) <=0 /100WBC'S 11/13/2022 12:44 [facility] Blood VENOUS BLOOD / Unknown Venipuncture / Unknown 11/13/2022 11:45 EDT 11/13/2022 12:30 EDT Stephon Sosa HEMATOLOGY & PF4 ORD ERABLES [facility] [address] [place] [address] * ECG REPORT - SCANNED (11/13/2022 9:56 EDT) 11/13/2022 9:56 EDT Scan 2 Bottle Machine Operator PROCEDURE/MINOR CROW GICAL ORDERABLES * (ABNORMAL) POCT GLUCOSE, INTERFACED (11/13/2022 8:09 EDT) [facility] Glucose, POC 177(H) 70 - 100 mg/dL 11/13/2022 8:10 EDT [facility] HN LAB POC COMMENT (GLUCOSE) Test Performed by Nursing Services 11/13/2022 8:10 EDT [facility] Blood CAPILLARY BLOOD / Unknown 11/13/2022 8:09 EDT 11/13/2022 8:10 EDT Stephon Sosa POINT OF CARE TEST O RDERABLES Performing Organization Address City/[facility]/ZIP Co de Phone Number [facility] [address] [place] [address] * SLIDE REQUEST (11/13/2022 6:28 EDT) [facility] Note A smear is filed in the Hematology lab. 11/13/2022 7:31 EDT [facility] Blood VENOUS BLOOD / Unknown Venipuncture / Unknown 11/13/2022 6:28 EDT 11/13/2022 7:05 EDT Stephon Sosa HEMATOLOGY & PF4 ORD ERABLES Performing Organization Address City/[facility]/ZIP Co de Phone Number [facility] [address] [place] [address] * (ABNORMAL) COMPLETE BLOOD COUNT (11/13/2022 6:28 EDT) [facility] WBC 23.98(H) 4.00 - 12.40 K/cmm 11/13/2022 7:11 T [facility] RBC 2.68(L) 3.86 - 5.04 M/cmm 11/13/2022 7:11 [facility] Hemoglobin 8.4(L) 11.6 - 15.2 g/dL 11/13/2022 7:11 [facility] HCT 23.2(L) 34.9 - 44.4 % 11/13/2022 7:11 [facility] MCV 87 81 - 98 fL 11/13/2022 7:11 EDT [facility] MCH 31.3 26.7 - 33.3 pg 11/13/2022 7:11 [facility] MCHC 36.2(H) 32.1 - 35.9 g/dL 11/13/2022 7:11 [facility] RDW-CV 14.4 <14.7 % 11/13/2022 7:11 [facility] RDW-SD 43.9 <50.4 fl 11/13/2022 7:11 [facility] PLT 172 141 - 377 K/cmm 11/13/2022 7:11 [facility] MPV 12.0 9.5 - 12.7 fL 11/13/2022 7:11 [facility] Nucleated Red Blood Cells 1(H) <=0 /100WBC'S 11/13/2022 7:11 [facility] Blood VENOUS BLOOD / Unknown Venipuncture / Unknown 11/13/2022 6:28 EDT 11/13/2022 7:05 EDT Stephon Sosa HEMATOLOGY & PF4 ORD ERABLES Performing Organization Address [facility]/[place] Co de Phone Number [facility] [address] [place] [phone] * (ABNORMAL) POCT GLUCOSE, INTERFACED (11/13/2022 6:14 EDT) Glucose, POC 174(H) 70 - 100 mg/dL 11/13/2022 6:15 EDT [facility] HN LAB POC COMMENT (GLUCOSE) Test Performed by Nursing Services 11/13/2022 6:15 EDT [facility] Blood CAPILLARY BLOOD / Unknown 11/13/2022 6:14 EDT 11/13/2022 6:14 EDT Stephon Sosa POINT OF CARE TEST O RDERABLES Performing Organization Address City/[facility]/ZIP Co de Phone Number [facility] [address] [place] [address] * (ABNORMAL) POCT GLUCOSE, INTERFACED (11/12/2022 23:54 EDT) Pathologist [facility] Glucose, POC 173(H) 70 - 100 mg/dL 11/12/2022 23:55 EDT [facility] HN LAB POC COMMENT (GLUCOSE) Test Performed by Nursing Services 11/12/2022 23:55 EDT [facility] Blood CAPILLARY BLOOD / Unknown 11/12/2022 23:54 EDT 11/12/2022 23:55 EDT Stephon Sosa POINT OF CARE TEST O RDERABLES Performing Organization Address City/[facility]/ZIP Co de Phone Number [facility] [address] [place] [address] * SLIDE REQUEST (11/12/2022 23:51 EDT) [facility] Note A smear is filed in the Hematology lab. 11/13/2022 0:32 EDT [facility] Blood VENOUS BLOOD / Unknown Venipuncture / Unknown 11/12/2022 23:51 EDT 11/13/2022 0:01 EDT Stephon Sosa HEMATOLOGY & PF4 ORD ERABLES Performing Organization Address City/[facility]/ZIP Co de Phone Number [facility] [address] [place] [address] * (ABNORMAL) COMPLETE BLOOD COUNT (11/12/2022 23:51 EDT) [facility] WBC 23.57(H) 4.00 - 12.40 K/cmm 11/13/2022 0:08 EDT [facility] RBC 2.74(L) 3.86 - 5.04 M/cmm 11/13/2022 0:08 EDT [facility] Hemoglobin 8.1(L) 11.6 - 15.2 g/dL 11/13/2022 0:08 EDT [facility] HCT 23.5(L) 34.9 - 44.4 % 11/13/2022 0:08 [facility] MCV 86 81 - 98 fL 11/13/2022 0:08 [facility] MCH 29.6 26.7 - 33.3 pg 11/13/2022 0:08 [facility] MCHC 34.5 32.1 - 35.9 g/dL 11/13/2022 0:08 [facility] RDW-CV 14.3 <14.7 % 11/13/2022 0:08 [facility] RDW-SD 43.6 <50.4 fl 11/13/2022 0:08 [facility] PLT 174 141 - 377 K/cmm 11/13/2022 0:08 [facility] MPV 11.3 9.5 - 12.7 fL 11/13/2022 0:08 [facility] Nucleated Red Blood Cells 1(H) <=0 /100WBC'S 11/13/2022 0:08 [facility] Blood VENOUS BLOOD / Unknown Venipuncture / Unknown 11/12/2022 23:51 EDT 11/13/2022 0:01 EDT Stephon Sosa HEMATOLOGY & PF4 ORD ERABLES Performing Organization Address City/State/[place] Co de Phone Number [facility] [address] [place] [address] * UPPER ENDOSCOPY PROCEDURE (11/12/2022 20:51 EDT) Anatomical Region Laterality Modality Endoscopy Narrative 11/12/2022 20:51 EDT Procedure Performed EGD Indications for Exam Hematemesis Procedure Technique Informed consent was obtained after explaining all the risks (perforation, bleeding, infection and adverse effects to the medicine), benefits and alternatives to the procedure. ??The patient was connected to the monitoring devices and placed in the left lateral position. Continuous oxygen was provided with a nasal cannula and IV medicine administered through a indwelling cannula. After adequate sedation was achieved, ??the scope was advanced throught the mouth under direct visualization to the third part of duodenum. The third part of duodenum was identified by visual landmarks. The scope was subsequently removed slowly while carefully examining the color, texture, anatomy, and integrity of the mucosa on withdrawal. The patient was subsequently transferred to the recovery area in satisfactory condition. Estimated Blood Loss: None Complications None Medications MAC Anesthesia per MICU See MICU Record Findings Esophagus: There was LA grade B esophagitis; no blood Stomach: There was red blood in the body of the stomach suggestive of recent bleeding; the mucosa was cleared with thorough irrigation. There were scattered petechiae within the body that may have been a potential source of bleeding. There was no active bleeding seen during the procedure. Duodenum: THere was circumferential erosion in the duodenal bulb; there was no active bleeding or high risk stigmata. Diagnosis Esophagus: There was LA grade B esophagitis; no blood Stomach: There was red blood in the body of the stomach suggestive of recent bleeding; the mucosa was cleared with thorough irrigation. There were scattered petechiae within the body that may have been a potential source of bleeding. There was no active bleeding seen during the procedure. Duodenum: THere was circumferential erosion in the duodenal bulb; there was no active bleeding or high risk stigmata. Recommendations -continue BID PPI x 8 weeks; should be on daily PPI indefinitely if aspirin is to be continued -avoid NSAIDs The??procedure??was??performed??by??Dr. Nikko Celis M.D. in the presence of Dr. Stephon Muro. The attending physician was in the room for the entire procedure. This electronic signature authenticates all electronic and/or handwritten documentation, including orders, generated by the signer during the episode of care contained in this record. 11/12/2022 08:51:34 PM By Stephon Muro MD Stephon Muro MD GI PROCEDURE [facility] * (ABNORMAL) POCT GLUCOSE, INTERFACED (11/12/2022 20:24 EDT) Glucose, POC 213(H) 70 - 100 mg/dL 11/12/2022 20:24 EDT [facility] HN LAB POC COMMENT (GLUCOSE) Test Performed by Nursing Services 11/12/2022 20:24 EDT [facility] Blood CAPILLARY BLOOD / Unknown 11/12/2022 20:24 EDT 11/12/2022 20:24 EDT Stephon Sosa POINT OF CARE TEST O RDERABLES Performing Organization Address City/[facility]/ZIP Co de Phone Number [facility] [address] [place] [address] * SLIDE REQUEST (11/12/2022 19:39 EDT) Note A smear is filed in the Hematology lab. 11/12/2022 21:28 EDT [facility] Blood VENOUS BLOOD / Unknown Finger/Heel Stick / Unknown 11/12/2022 19:39 EDT 11/12/2022 20:02 EDT Stephon Sosa HEMATOLOGY & PF4 ORD ERABLES Performing Organization Address [facility] de Phone Number [facility] [address] [place] [address] * (ABNORMAL) COMPLETE BLOOD COUNT (11/12/2022 19:39 EDT) WBC 28.23(H) 4.00 - 12.40 K/cmm 11/12/2022 20:42 [facility] RBC 3.14(L) 3.86 - 5.04 M/cmm 11/12/2022 20:42 [facility] Hemoglobin 9.7(L) 11.6 - 15.2 g/dL 11/12/2022 20:42 [facility] HCT 27.5(L) 34.9 - 44.4 % 11/12/2022 20:42 [facility] MCV 88 81 - 98 fL 11/12/2022 20:42 [facility] MCH 30.9 26.7 - 33.3 pg 11/12/2022 20:42 [facility] MCHC 35.3 32.1 - 35.9 g/dL 11/12/2022 20:42 [facility] RDW-CV 14.3 <14.7 % 11/12/2022 20:42 [facility] RDW-SD 43.3 <50.4 fl 11/12/2022 20:42 EDT [facility] PLT 137(L) 141 - 377 K/cmm 11/12/2022 20:42 EDT [facility] MPV 11.9 9.5 - 12.7 fL 11/12/2022 20:42 EDT [facility] Nucleated Red Blood Cells 2(H) <=0 /100WBC'S 11/12/2022 20:42 EDT [facility] Blood VENOUS BLOOD / Unknown Finger/Heel Stick / Unknown 11/12/2022 19:39 EDT 11/12/2022 20:02 EDT Stephon Sosa HEMATOLOGY & PF4 ORD ERABLES Performing Organization Address [facility] Co de Phone Number [facility] [address] [place] [address] * (ABNORMAL) POCT GLUCOSE, INTERFACED (11/12/2022 18:27 EDT) Glucose, POC 225(H) 70 - 100 mg/dL 11/12/2022 18:28 EDT [facility] HN LAB POC COMMENT (GLUCOSE) Test Performed by Nursing Services 11/12/2022 18:28 EDT [facility] Blood CAPILLARY BLOOD / Unknown 11/12/2022 18:27 EDT 11/12/2022 18:28 EDT Stephon Sosa POINT OF CARE TEST O RDERABLES Performing Organization Address City/[facility]/ZIP Co de Phone Number [facility] [address] [place] [address] * TRANSFUSE RED BLOOD CELLS (11/12/2022 15:38 EDT) Blood Vikash Guzman MD NURSING TREATMENT - BLOOD ADMINISTRATION * TRANSFUSE RED BLOOD CELLS (11/12/2022 15:38 EDT) Blood Vikash Guzman MD NURSING TREATMENT - BLOOD ADMINISTRATION * TRANSFUSE RED BLOOD CELLS (11/12/2022 13:03 EDT) Blood Stephon Sosa NURSING TREATMENT - BLOOD ADMINISTRATION * TRANSFUSE RED BLOOD CELLS (11/12/2022 13:03 EDT) Blood Stephon Sosa NURSING TREATMENT - BLOOD ADMINISTRATION * (ABNORMAL) POCT GLUCOSE, INTERFACED (11/12/2022 12:04 EDT) Glucose, POC 267(H) 70 - 100 mg/dL 11/12/2022 12:05 EDT [facility] HN LAB POC COMMENT (GLUCOSE) Test Performed by Nursing Services 11/12/2022 12:05 EDT [facility] Blood CAPILLARY BLOOD / Unknown 11/12/2022 12:04 EDT 11/12/2022 12:05 EDT Stephon Sosa POINT OF CARE TEST O RDERABLES Performing Organization Address City/[facility]/ZIP Co de Phone Number [facility] [address] [place] [address] * SLIDE REQUEST (11/12/2022 11:47 EDT) Note A smear is filed in the Hematology lab. 11/12/2022 12:27 EDT [facility] Blood VENOUS BLOOD / Unknown Venipuncture / Unknown 11/12/2022 11:47 EDT 11/12/2022 11:56 EDT Stephon Sosa HEMATOLOGY & PF4 ORD ERABLES [facility] [address] [place] [address] * MAGNESIUM (11/12/2022 11:47 EDT) Magnesium 2.1 1.7 - 2.8 mg/dL 11/12/2022 12:19 [facility] Blood VENOUS BLOOD / Unknown Venipuncture / Unknown 11/12/2022 11:47 EDT 11/12/2022 11:56 EDT Stephon Sosa CHEMISTRY & BLOOD OR S ORDERABLES [facility] [address] [place] [address] * (ABNORMAL) BASIC METABOLIC PANEL (BMP) (11/12/2022 11:47 EDT) Sodium 136 136 - 145 mmol/L 11/12/2022 12:19 [facility] Potassium 4.6 3.5 - 5.0 mmol/L 11/12/2022 12:19 [facility] Chloride 107 96 - 110 mmol/L 11/12/2022 12:19 [facility] CO2 Total 21(L) 22 - 32 mmol/L 11/12/2022 12:19 [facility] Anion Gap 8 5 - 14 mmol/L 11/12/2022 12:19 [facility] Glucose 274(H) 70 - 100 mg/dl 11/12/2022 12:19 [facility] Calcium 9.2 8.5 - 10.5 mg/dL 11/12/2022 12:19 [facility] BUN 46(H) 10 - 26 mg/dL 11/12/2022 12:19 [facility] Creatinine 1.07(H) 0.52 - 1.04 mg/dL 11/12/2022 12:19 [facility] eGFR 56(L) >60 mL/min/1.73 m2 11/12/2022 12:19 [facility] Blood VENOUS BLOOD / Unknown Venipuncture / Unknown 11/12/2022 11:47 EDT 11/12/2022 11:56 EDT Stephon Sosa CHEMISTRY & BLOOD OR S ORDERABLES [facility] [address] [place] [address] * (ABNORMAL) COMPLETE BLOOD COUNT (11/12/2022 11:47 EDT) WBC 25.10(H) 4.00 - 12.40 K/cmm 11/12/2022 12:08 [facility] RBC 2.27(L) 3.86 - 5.04 M/cmm 11/12/2022 12:08 [facility] Hemoglobin 6.9(LL) 11.6 - 15.2 g/dL 11/12/2022 12:08 [facility] HCT 19.9(LL) 34.9 - 44.4 % 11/12/2022 12:08 [facility] MCV 88 81 - 98 fL 11/12/2022 12:08 [facility] MCH 30.4 26.7 - 33.3 pg 11/12/2022 12:08 [facility] MCHC 34.7 32.1 - 35.9 g/dL 11/12/2022 12:08 [facility] RDW-CV 14.6 <14.7 % 11/12/2022 12:08 [facility] RDW-SD 45.0 <50.4 fl 11/12/2022 12:08 [facility] PLT 221 141 - 377 K/cmm 11/12/2022 12:08 [facility] MPV 11.5 9.5 - 12.7 fL 11/12/2022 12:08 [facility] Nucleated Red Blood Cells 1(H) <=0 /100WBC'S 11/12/2022 12:08 [facility] Blood VENOUS BLOOD / Unknown Venipuncture / Unknown 11/12/2022 11:47 EDT 11/12/2022 11:56 EDT Stephon Sosa HEMATOLOGY & PF4 ORD ERABLES [facility] [address] [place] [address] * CALCIUM, IONIZED (11/12/2022 11:46 EDT) Calcium, Ionized 1.23 1.14 - 1.35 mmol/L 11/12/2022 12:12 EDT [facility] Blood VENOUS BLOOD / Unknown Venipuncture / Unknown 11/12/2022 11:46 EDT 11/12/2022 11:56 EDT Stephon Lang CHEMISTRY & BLOOD GA S ORDERABLES Performing Organization Address City/[facility]/[place] Co de Phone Number [facility] [address] [place] [address] * PREPARE RED BLOOD CELLS (11/12/2022 9:57 EDT) Product Code [id number] [facility] Donor Number [id number] [facility] ABO A [facility] [place] [facility] Unit Rh NEG [facility] [place] [facility] Unit Status TR^Transfuse [facility] BLOOD BANK Product Expiration Date [id number] [facility] Unit Blood Type Code 0600 [facility] Volume 275 [facility] BLOOD BANK Coding System [id number] [facility] BLOOD [facility]ANK 11/12/2022 9:57 EDT Stephon Lena BLOOD BANK ORDERABLE S [facility] [address] [facility] [place] [address] * PREPARE RED BLOOD CELLS (11/12/2022 9:57 EDT) Product Code [id number] [facility] BLOOD BANK Donor Number [id number] [facility] Unit ABO O [facility] [place] BLOOD [facility] Unit Rh NEG [facility] [place] BLOOD [facility] Unit Status TR^Transfuse [facility] BLOOD BANK Product Expiration Date [id number] [facility] Unit Blood Type Code 9500 [facility] Coding System [id number] [facility] BLOOD [facility] Blood 11/12/2022 9:57 EDT Stephon Sosa BLOOD BANK ORDERABLE S [facility] [address] [place] [address] * EKG 12-LEAD (11/12/2022 9:47 EDT) 11/12/2022 9:47 EDT Narrative [facility] - 11/13/2022 9:51 EDT ? [facility] ? Test Date: ?2022-11-12 Pat Name: ? Fortunato Tanner ?Department: ?? [facility] ? Room: ? Gender: ? Female ? Psych Coordinator: ?? : ?1950 ? Requested By: RAJINDER GLEZ MD Order Number: ?Reading : ?? EDGARDO MACARIO MD ? Measurements Intervals ?[place] ? Rate: ? 91 ? P: ?71 NE: ? 244 ?QRS: ?-14 QRSD: ? 121 ?T: ?143 QT: ? 390 ? QTc: ?482 ? Interpretive Statements SINUS RHYTHM WITH FIRST DEGREE AV BLOCK WITH OCCASIONAL VENTRICULAR PREMATURE COMPLEXES LEFT VENTRICULAR HYPERTROPHY AND ST-T CHANGE POSSIBLE SEPTAL MYOCARDIAL INFARCTION , OF INDETERMINATE AGE Compared to ECG 11/11/2022 14:07:29 Ventricular premature complex(es) now present First degree AV block now present ST (T wave) deviation now present Myocardial infarct finding still present I reviewed the tracing and have either agreed or edited the findings in this report. Electronically Signed On 11-13-2022 9:51:10 EDT by EDGARDO MACARIO MD. Procedure Note Edgardo Macario MD - 11/13/2022 [facility] Test Date: 2022-11-12 Pat Name: Fortunato Tanner Department: [place] [address] Room: Gender: Female Psych Coordinator: : 1950 Requested By: RAJINDER GLEZ MD Order Number: Reading MD: EDGARDO MACARIO MD Measurements Intervals [place] Rate: 91 P: 71 NE: 244 QRS: -14 QRSD: 121 T: 143 QT: 390 QTc: 482 Interpretive Statements SINUS RHYTHM WITH FIRST DEGREE AV BLOCK WITH OCCASIONAL VENTRICULARPREMATURE COMPLEXES LEFT VENTRICULAR HYPERTROPHY AND ST-T CHANGE POSSIBLE SEPTAL MYOCARDIAL INFARCTION , OF INDETERMINATE AGE Compared to ECG 11/11/2022 14:07:29 Ventricular premature complex(es) now present First degree AV block now present ST (T wave) deviation now present Myocardial infarct finding still present I reviewed the tracing and have either agreed or edited the findings inthis report. Electronically Signed On 11-13-2022 9:51:10 EDT by EDGARDO BIRMINGHAM. Rajinder Glez MD CARDIAC ECG ORDERABL ES Performing Organization Address [facility]/ZIP Co de Phone Number [facility] * (ABNORMAL) POCT GLUCOSE, INTERFACED (11/12/2022 9:44 EDT) Glucose, POC 223(H) 70 - 100 mg/dL 11/12/2022 9:45 EDT [facility] HN LAB POC COMMENT (GLUCOSE) Test Performed by Nursing Services 11/12/2022 9:45 EDT [facility] Blood CAPILLARY BLOOD / Unknown 11/12/2022 9:44 EDT 11/12/2022 9:45 EDT Rajinder Glez MD POINT OF CARE TEST O RDERABLES [facility] [address] [place] [address] * SLIDE REQUEST (11/12/2022 9:24 EDT) Note A smear is filed in the Hematology lab. 11/12/2022 10:07 EDT [facility] Blood VENOUS BLOOD / Unknown Venipuncture / Unknown 11/12/2022 9:24 EDT 11/12/2022 9:32 EDT Stephon Sosa HEMATOLOGY & PF4 ORD ERABLES [facility] [address] [place] [address] * (ABNORMAL) COMPLETE BLOOD COUNT (11/12/2022 9:24 EDT) WBC 23.80(H) 4.00 - 12.40 K/cmm 11/12/2022 9:48 EDT [facility] RBC 2.32(L) 3.86 - 5.04 M/cmm 11/12/2022 9:48 EDT [facility] Hemoglobin 7.1(L) 11.6 - 15.2 g/dL 11/12/2022 9:48 EDT [facility] HCT 20.3(LL) 34.9 - 44.4 % 11/12/2022 9:48 EDT [facility] MCV 88 81 - 98 fL 11/12/2022 9:48 EDT [facility] MCH 30.6 26.7 - 33.3 pg 11/12/2022 9:48 EDT [facility] MCHC 35.0 32.1 - 35.9 g/dL 11/12/2022 9:48 EDT [facility] RDW-CV 14.6 <14.7 % 11/12/2022 9:48 EDT [facility] RDW-SD 44.9 <50.4 fl 11/12/2022 9:48 EDT [facility] PLT 215 141 - 377 K/cmm 11/12/2022 9:48 EDT [facility] MPV 11.5 9.5 - 12.7 fL 11/12/2022 9:48 EDT [facility] Nucleated Red Blood Cells 1(H) <=0 /100WBC'S 11/12/2022 9:48 EDT [facility] Blood VENOUS BLOOD / Unknown Venipuncture / Unknown 11/12/2022 9:24 EDT 11/12/2022 9:32 EDT Stephon Sosa HEMATOLOGY & PF4 ORD ERABLES [facility] [address] [place] [address] * PATIENT RE-TYPE (11/12/2022 9:23 EDT) ABO A 11/12/2022 10:38 EDT [facility] Rh Factor Negative 11/12/2022 10:38 EDT [facility] Blood VENOUS BLOOD / Unknown Venipuncture / Unknown 11/12/2022 9:23 EDT 11/12/2022 9:39 EDT Stephon Sosa BLOOD BANK TESTS Performing Organization Address City/[facility]/ZIP Co de Phone Number [facility] [address] [place] [address] * SLIDE REQUEST (11/12/2022 7:23 EDT) Note A smear is filed in the Hematology lab. 11/12/2022 8:06 EDT [facility] Blood VENOUS BLOOD / Unknown Venipuncture / Unknown 11/12/2022 7:23 EDT 11/12/2022 7:31 EDT Stephon Sosa HEMATOLOGY & PF4 ORD ERABLES Performing Organization Address City/[facility]/ZIP Co de Phone Number [facility] [address] [place] [address] * (ABNORMAL) COMPLETE BLOOD COUNT (11/12/2022 7:23 EDT) WBC 25.34(H) 4.00 - 12.40 K/cmm 11/12/2022 7:49 EDT [facility] RBC 2.30(L) 3.86 - 5.04 M/cmm 11/12/2022 7:49 EDT [facility] Hemoglobin 7.1(L) 11.6 - 15.2 g/dL 11/12/2022 7:49 EDT [facility] HCT 20.0(LL) 34.9 - 44.4 % 11/12/2022 7:49 EDT [facility] MCV 87 81 - 98 fL 11/12/2022 7:49 EDT [facility] MCH 30.9 26.7 - 33.3 pg 11/12/2022 7:49 T [facility] MCHC 35.5 32.1 - 35.9 g/dL 11/12/2022 7:49 EDT [facility] RDW-CV 14.5 <14.7 % 11/12/2022 7:49 T [facility] RDW-SD 44.6 <50.4 fl 11/12/2022 7:49 T [facility] PLT 189 141 - 377 K/cmm 11/12/2022 7:49 [facility] MPV 11.2 9.5 - 12.7 fL 11/12/2022 7:49 [facility] Nucleated Red Blood Cells 1(H) <=0 /100WBC'S 11/12/2022 7:49 T [facility] Blood VENOUS BLOOD / Unknown Venipuncture / Unknown 11/12/2022 7:23 EDT 11/12/2022 7:31 EDT Stephon Sosa HEMATOLOGY & PF4 ORD ERABLES Performing Organization Address [facility]/State/ZIP Co de Phone Number [facility] [address] [place] [address] * (ABNORMAL) POCT GLUCOSE, INTERFACED (11/12/2022 6:09 EDT) Glucose, POC 212(H) 70 - 100 mg/dL 11/12/2022 6:10 EDT [facility] HN LAB POC COMMENT (GLUCOSE) Test Performed by Nursing Services 11/12/2022 6:10 EDT [facility] Blood CAPILLARY BLOOD / Unknown 11/12/2022 6:09 EDT 11/12/2022 6:10 EDT Stephon Sosa POINT OF CARE TEST O RDERABLES [facility] [address] [place] [address] * POC US VAT LINE PLACEMENT (11/12/2022 3:25 EDT) Narrative 11/12/2022 3:25 EDT This is a non-reportable exam. Rajinder Glez MD IMG US POC ORDERABLE S * COMPLETE BLOOD COUNT (11/12/2022 3:22 EDT) WBC 11/12/2022 4:13 EDT [facility] Comment: Clotted This is a corrected result. Previous result was 24.80 K/cmm on 11/12/2022 at 0401 EDT RBC 11/12/2022 4:13 [facility] Comment: Clotted This is a corrected result. Previous result was 2.29 M/cmm on 11/12/2022 at 0401 EDT Hemoglobin 11/12/2022 4:13 T [facility] Comment: Clotted This is a corrected result. Previous result was 7.1 g/dL on 11/12/2022 at 0401 EDT HCT 11/12/2022 4:13 T [facility] Comment: Clotted This is a corrected result. Previous result was 19.7 % on 11/12/2022 at 0401 EDT MCV 11/12/2022 4:13 T [facility] Comment: Clotted This is a corrected result. Previous result was 86 fL on 11/12/2022 at 0401 EDT MCH 11/12/2022 4:13 T [facility] Comment: Clotted This is a corrected result. Previous result was 31.0 pg on 11/12/2022 at 0401 EDT Hypochromia 11/12/2022 4:13 T [facility] Comment:Clotted MCHC 11/12/2022 4:13 T [facility] Comment: Clotted This is a corrected result. Previous result was 36.0 g/dL on 11/12/2022 at 0401 EDT RDW-CV 11/12/2022 4:13 EDT [facility] Comment: Clotted This is a corrected result. Previous result was 14.3 % on 11/12/2022 at 0401 EDT RDW-SD 11/12/2022 4:13 EDT [facility] Comment: Clotted This is a corrected result. Previous result was 43.7 fl on 11/12/2022 at 0401 EDT Anisocytosis 11/12/2022 4:13 EDT [facility] Comment:Clotted PLT 11/12/2022 4:13 EDT [facility] Comment: Clotted This is a corrected result. Previous result was 179 K/cmm on 11/12/2022 at 0401 EDT MPV 11/12/2022 4:13 T [facility] Comment: Clotted This is a corrected result. Previous result was 11.4 fL on 11/12/2022 at 0401 EDT Blood VENOUS BLOOD / Unknown Venipuncture / Unknown 11/12/2022 3:22 EDT 11/12/2022 3:36 EDT Stephon Sosa HEMATOLOGY & PF4 ORD ERABLES Performing Organization Address City/[facility]/ZIP Co de Phone Number [facility] [address] [place] [address] * (ABNORMAL) POCT GLUCOSE, INTERFACED (11/12/2022 0:15 EDT) Glucose, POC 243(H) 70 - 100 mg/dL 11/12/2022 0:16 EDT [facility] HN LAB POC COMMENT (GLUCOSE) Test Performed by Nursing Services 11/12/2022 0:16 EDT [facility] Blood CAPILLARY BLOOD / Unknown 11/12/2022 0:15 EDT 11/12/2022 0:16 EDT Stephon Sosa POINT OF CARE TEST O RDERABLES Performing Organization Address City/[facility]/ZIP Co de Phone Number [facility] [address] [place] [address] * (ABNORMAL) POCT GLUCOSE, INTERFACED (11/11/2022 20:49 EDT) Glucose, POC 209(H) 70 - 100 mg/dL 11/11/2022 20:50 EDT [facility] HN LAB POC COMMENT (GLUCOSE) Test Performed by Nursing Services 11/11/2022 20:50 EDT [facility] Blood CAPILLARY BLOOD / Unknown 11/11/2022 20:49 EDT 11/11/2022 20:50 EDT Rajinder Glez MD POINT OF CARE TEST O RDERABLES Performing Organization Address [facility]/[place] Co de Phone Number [facility] [address] [place] [address] * (ABNORMAL) TROPONIN I (11/11/2022 20:44 EDT) [facility] Troponin I (ng/mL) 32.500(H) <0.034 ng/mL 11/12/2022 8:32 EDT [facility] Blood VENOUS BLOOD / Unknown Venipuncture / Unknown 11/11/2022 20:44 EDT 11/11/2022 20:49 EDT Narrative [facility] - 11/12/2022 8:32 EDT The results of this assay can be falsely lowered due to the consumption of Biotin. Stephon Sosa CHEMISTRY & BLOOD GA S ORDERABLES Performing Organization Address [facility]/ZIP Co de Phone Number [facility] [address] [place] [id number] * (ABNORMAL) LACTIC ACID (11/11/2022 20:44 EDT) Lactic Acid 3.2(HH) <=2.0 mmol/L 11/11/2022 21:11 EDT [facility] Blood VENOUS BLOOD / Unknown Venipuncture / Unknown 11/11/2022 20:44 EDT 11/11/2022 20:49 EDT Miguel Gandhi MD CHEMISTRY & BLOOD GA S ORDERABLES [facility] [address] [place] [address] * (ABNORMAL) BASIC METABOLIC PANEL (BMP) (11/11/2022 20:44 EDT) Sodium 139 136 - 145 mmol/L 11/11/2022 21:09 [facility] Potassium 4.4 3.5 - 5.0 mmol/L 11/11/2022 21:09 [facility] Chloride 111(H) 96 - 110 mmol/L 11/11/2022 21:09 [facility] CO2 Total 19(L) 22 - 32 mmol/L 11/11/2022 21:09 [facility] Anion Gap 9 5 - 14 mmol/L 11/11/2022 21:09 [facility] Glucose 242(H) 70 - 100 mg/dl 11/11/2022 21:09 [facility] Calcium 8.8 8.5 - 10.5 mg/dL 11/11/2022 21:09 [facility] BUN 48(H) 10 - 26 mg/dL 11/11/2022 21:09 [facility] Creatinine 1.07(H) 0.52 - 1.04 mg/dL 11/11/2022 21:09 [facility] eGFR 56(L) >60 mL/min/1.73 m2 11/11/2022 21:09 [facility] Blood VENOUS BLOOD / Unknown Venipuncture / Unknown 11/11/2022 20:44 EDT 11/11/2022 20:49 EDT Miguel Gandhi MD CHEMISTRY & BLOOD GA S ORDERABLES [facility] [address] [place] [address] * (ABNORMAL) POCT GLUCOSE, INTERFACED (11/11/2022 18:26 EDT) Glucose, POC 233(H) 70 - 100 mg/dL 11/11/2022 18:27 EDT [facility] HN LAB POC COMMENT (GLUCOSE) Test Performed by Nursing Services 11/11/2022 18:27 T [facility] Blood CAPILLARY BLOOD / Unknown 11/11/2022 18:26 EDT 11/11/2022 18:27 EDT Stephon Sosa POINT OF CARE TEST O RDERABLES [facility] [address] [place] [address] * (ABNORMAL) COMPLETE BLOOD COUNT (11/11/2022 18:22 EDT) WBC 14.72(H) 4.00 - 12.40 K/cmm 11/11/2022 18:35 [facility] RBC 2.83(L) 3.86 - 5.04 M/cmm 11/11/2022 18:35 [facility] Hemoglobin 8.6(L) 11.6 - 15.2 g/dL 11/11/2022 18:35 [facility] HCT 24.7(L) 34.9 - 44.4 % 11/11/2022 18:35 [facility] MCV 87 81 - 98 fL 11/11/2022 18:35 [facility] MCH 30.4 26.7 - 33.3 pg 11/11/2022 18:35 [facility] MCHC 34.8 32.1 - 35.9 g/dL 11/11/2022 18:35 [facility] RDW-CV 14.2 <14.7 % 11/11/2022 18:35 [facility] RDW-SD 43.8 <50.4 fl 11/11/2022 18:35 [facility] PLT 194 141 - 377 K/cmm 11/11/2022 18:35 [facility] MPV 11.1 9.5 - 12.7 fL 11/11/2022 18:35 EDT [facility] Nucleated Red Blood Cells 1(H) <=0 /100WBC'S 11/11/2022 18:35 EDT [facility] Blood VENOUS BLOOD / Unknown IV Draw / Unknown 11/11/2022 18:22 EDT 11/11/2022 18:30 EDT Stephon Sosa HEMATOLOGY & PF4 ORD ERABLES Performing Organization Address City/[facility]/ZIP Co de Phone Number [facility] [address] [place] [address] * (ABNORMAL) LACTIC ACID (11/11/2022 18:22 EDT) Lactic Acid 3.9(HH) <=2.0 mmol/L 11/11/2022 19:02 EDT [facility] Blood VENOUS BLOOD / Unknown IV Draw / Unknown 11/11/2022 18:22 EDT 11/11/2022 18:30 EDT Stephon Sosa CHEMISTRY & BLOOD GA S ORDERABLES Performing Organization Address [facility] Co de Phone Number [facility] [address] [place] [address] * TRANSTHORACIC ECHO (TTE) COMPLETE W/DOPPLER W/CF W/ CONTRAST (11/11/2022 15:05 EDT) LA Atrial Length A2C 4.3 cm [facility] LA Atrial Area A4C 14.1 cm2 [facility] LA ID/bsa, A-P 2.0 cm/m2 [facility] LV ID, ED, PLAX 3.4 3.5 - 6.0 cm [facility] LVIDD BY MMODE 3.4 cm [facility] LV ID, ES, PLAX 2.3 2.1 - 4.0 cm [facility] LA ID, A-P, ES 3.7 cm [facility] LV PW thickness, ED, PLAX 1.6 0.6 - 1.1 cm [facility] Aortic root ID 3.5 cm [facility] RA Atrial Length A4C 3.8 cm [facility] Aortic valve mean velocity, S 1.5 m/s [facility] RA Atrial Area A4C 7.9 cm2 [facility] LV ejection fraction, 1-p A4C 69 % [facility] LVOT mean gradient, S 2 mmHg [facility] Aortic valve area, peak velocity 1.3 cm2 [facility] RA Atrial Volume A4C 13.0 ml [facility] RA ESV Index A4C 7.0 ml/m2 [facility] Aortic mean gradient, S 13 mmHg [facility] AV LVOT peak gradient 5 mmHg [facility] LVOT area 3.5 cm2 [facility] LVOT peak velocity, S 1.1 m/s [facility] LVOT VTI, S 18.9 cm [facility] PO INT OF CARE Aortic valve peak velocity, S 2.4 m/s [facility] Aortic valve VTI, S 39.8 cm [facility] Stroke volume (SV), LVOT DP 65 ml [facility] POINT OF CARE Aortic peak gradient, S 32 mmHg [facility] POINT [facility] CARE LVOT mean velocity, S 0.7 m/s [facility]INT [facility] C[facility] LV Systolic Volume Index 22.0 mL/m2 [facility] LV Diastolic Volume Index 53.0 mL/m2 [facility] C[facility] AV DOI 0.46 [facility] POIN T OF CARE LA Atrial Length A4C 4.9 cm [facility] POINT OF CARE LVOT ID, S 2.1 cm [facility] POI NT OF CARE EF 59 % [facility] POIN T OF CARE LA volume, ES, BP 40.0 ml [facility] POINT OF CARE LA volume/bsa, ES, A4C 18.0 ml/m2 [facility] POINT OF CARE LA volumes, ES, A4C 33.0 ml [facility]INT [facility] C[facility] LA volume/bsa, ES, BP 22.0 ml/m2 [facility] C[facility] LV Systolic Volume 40 mL [facility] LV Diastolic Volume 98 mL [facility] POINT OF CARE Stroke index (SV/bsa) LVOT DP 35.0 ml/m2 [facility] POINT OF CARE Aortic valve area VTI 1.6 cm2 [facility]INT [facility] C[facility] Interventricular Septum to Posterior Wall Thickness Ratio 1.2 [facility] P OINT OF CARE IVS thickness, ED, PLAX 1.9 cm [facility] C[facility] AV dimensionless index (DI) 0.9 [facility] POINT OF CARE Velocity ratio, mean, LVOT/AV 0.46 [facility] POINT OF CARE Aortic valve area 1.6 cm2 [facility] POINT OF CARE AVAI Pk Fernando 0.9 cm2/m2 [facility] PO INT OF CARE Pulmonic valve mean velocity, S 1 cm/s [facility] POINT OF CARE Ascending aorta ID, a-p 3.8 cm [facility] POINT OF CARE LA Atrial Area A2C 14.1 cm2 [facility] LA/aortic root ratio 1.06 [facility]INT [facility] CARE LV end diastolic volume 1-p A2C 83 ml [facility] C[facility] LV ejection fraction, 1-p A2C 50 % [facility] POIN T OF CARE LV end-diastolic volume, 1-p A4C 112 ml [facility] POINT OF CARE Anatomical Region Laterality Modality Ultrasound Narrative 11/11/2022 16:12 EDT ?Left??Ventricle: The left ventricular cavity was small in size. Left ventricular systolic function was hyperdynamic with an ejection fraction =>65%. There was severe asymmetric hypertrophy of the left ventricle. Left ventricular wall motion was normal; there were no regional wall motion abnormalities. ?Right??Ventricle: The right ventricular cavity was normal in size. Right ventricular systolic function was normal. Left Ventricle The left ventricular cavity was small in size. Left ventricular systolic function was hyperdynamic with an ejection fraction =>65%. There was severe asymmetric hypertrophy of the left ventricle. Left [...] size. IVC/SVC The inferior vena cava was normal in size. Mitral Valve The mitral leaflets were mildly [...] 13 mmHg. AV Area VTI: 1.6 cm2. Pulmonic Valve The pulmonic valve was not well visualized. There was no pulmonic valve regurgitation. There was no pulmonic valve stenosis. Ascending Aorta The aorta was normal in size. Pericardium There was no pericardial effusion. Pulmonic Artery Unable to assess PA pressure. Study Details Study status: Routine. Transthoracic echocardiography. M-Mode, complete 2D, complete spectral Doppler, and color Doppler.The study was interpreted by [facility]. Pertinent images and digital data are archived for permanent storage and are available for subsequent review. Scanning was performed from the apical, parasternal and subcostal acoustic windows. Definity contrast was used during the study. Overall the study quality was adequate. Images were obtained using cardiac ultrasound machine EPIQ #13. Stephon Sosa CARDIAC ECHO ORDERAB LES * EKG 12-LEAD (11/11/2022 14:07 EDT) 11/11/2022 14:0 7 EDT Narrative [facility] - 12/01/2022 17:21 EDT ? [facility] ? Test Date: ?2022-11-11 Pat Name: ? FORTUNATO TANNER ?Department: ?? Destin Maldonado ? Room: ? M407 Gender: ? Female ? Psych Coordinator: ?? : ?1950 ? Requested By: ELNA LAURENT Order Number: [id number] ? Reading MD: ?? GITA WESTBROOK MD ? Measurements Intervals ?[place] ? Rate: ? 83 ? P: ? NE: ? 0 ?QRS: ?12 QRSD: ? 117 ?T: ?148 QT: ? 408 ? QTc: ?480 ? Interpretive Statements Sinus rhythm with 1st degree AV delay POSSIBLE LEFT VENTRICULAR HYPERTROPHY POSSIBLE SEPTAL MYOCARDIAL INFARCTION , OF INDETERMINATE AGE MODERATE T-WAVE ABNORMALITY, CONSIDER LATERAL ISCHEMIA Automated Interpretation. ??Provider Interpretation to follow. Compared to ECG 01/23/2019 15:04:46 Myocardial infarct finding now present T-wave abnormality now present I reviewed the tracing and have either agreed or edited the findings in this report. Electronically Signed On 12-01-2022 17:21:11 EDT by GITA WESTBROOK MD. Procedure Note Gita Westbrook MD - 12/01/2022 [facility] Test Date: 2022-11-11 Pat Name: FORTUNATO HART Department: [place] [address] Room: [facility] Gender: Female Psych Coordinator: : 1950 Requested By: LENA LAURENT Order Number: [id number] Reading MD: GITA WESTBROOK MD Measurements Intervals [place] Rate: 83 P: NE: 0 QRS: 12 QRSD: 117 T: 148 QT: 408 QTc: 480 Interpretive Statements Sinus rhythm with 1st degree AV delay POSSIBLE LEFT VENTRICULAR HYPERTROPHY POSSIBLE SEPTAL MYOCARDIAL INFARCTION , OF INDETERMINATE AGE MODERATE T-WAVE ABNORMALITY, CONSIDER LATERAL ISCHEMIA Automated Interpretation. Provider Interpretation to follow. Compared to ECG 01/23/2019 15:04:46 Myocardial infarct finding now present T-wave abnormality now present I reviewed the tracing and have either agreed or edited the findings inthis report. Electronically Signed On 12-01-2022 17:21:11 EDT by MOHAMUD HAY. Stephon oSsa CARDIAC ECG ORDERABL ES [facility] EKG * (ABNORMAL) POCT GLUCOSE, INTERFACED (11/11/2022 13:35 EDT) Glucose, POC 272(H) 70 - 100 mg/dL 11/11/2022 13:36 EDT [facility] HN LAB POC COMMENT (GLUCOSE) Test Performed by Nursing Services 11/11/2022 13:36 EDT [facility] Blood CAPILLARY BLOOD / Unknown 11/11/2022 13:35 EDT 11/11/2022 13:36 EDT Rajinder Glez MD POINT OF CARE TEST O RDERABLES [facility] [address] [place] [address] * (ABNORMAL) COMPREHENSIVE METABOLIC PANEL (CMP) (11/11/2022 13:24 EDT) Sodium 139 136 - 145 mmol/L 11/11/2022 15:07 [facility] Potassium 4.6 3.5 - 5.0 mmol/L 11/11/2022 15:07 [facility] Chloride 108 96 - 110 mmol/L 11/11/2022 15:07 [facility] CO2 Total 16(L) 22 - 32 mmol/L 11/11/2022 15:07 [facility] Glucose 298(H) 70 - 100 mg/dl 11/11/2022 15:07 [facility] BUN 50(H) 10 - 26 mg/dL 11/11/2022 15:07 [facility] Creatinine 1.17(H) 0.52 - 1.04 mg/dL 11/11/2022 15:07 [facility] eGFR 50(L) >60 mL/min/1.7 3m2 11/11/2022 15:07 [facility] Total Protein 5.3(L) 6.3 - 8.2 g/dL 11/11/2022 15:07 [facility] Albumin 3.2(L) 3.4 - 4.9 g/dL 11/11/2022 15:07 [facility] Alkaline Phosphatase 33(L) 38 - 126 U/L 11/11/2022 15:07 [facility] AST 101(H) 15 - 46 U/L 11/11/2022 15:07 [facility] ALT 49(H) <35 U/L 11/11/2022 15:07 [facility] Bilirubin, Total 0.7 <1.4 mg/dL 11/12/19 15:07 [facility] Calcium 8.7 8.5 - 10.5 mg/dL 11/11/2022 15:07 EDT [facility] Albumin/Globulin Ratio 1.5 1.0 - 2.5 11/11/2022 15:07 EDT [facility] Anion Gap 15(H) 5 - 14 mmol/L 11/11/2022 15:07 EDT [facility] Blood VENOUS BLOOD / Unknown IV Draw / Unknown 11/11/2022 13:24 EDT 11/11/2022 13:35 EDT Stephon Sosa CHEMISTRY & BLOOD GA S ORDERABLES Performing Organization Address [facility] Co de Phone Number [facility] [address] [place] [address] * HEPARIN LEVEL - UNFRACTIONATED HEPARIN (11/11/2022 13:24 EDT) Heparin Level-UFH 0.23 Therapeutic Range: 0.30 - 0.70 IU/mL 11/11/2022 14:23 EDT [facility] Comment:Unfractionated hepar in therapeutic [...] apixaban, edoxaban). Blood VENOUS BLOOD / Unknown IV Draw / Unknown 11/11/2022 13:24 EDT 11/11/2022 13:35 EDT Narrative [facility] - 11/11/2022 14:23 EDT Slight hemolysis present Sample retested, result confirmed Reilly Conroy MD HEMATOLOGY & PF4 ORD ERABLES Performing Organization Address City/[facility]/ZIP Co de Phone Number [facility] [address] [place] [address] * (ABNORMAL) HEMOGLOBIN A1C (11/11/2022 13:24 EDT) Hemoglobin A1c 7.1(H) <5.7 % 11/11/2022 16:36 EDT [facility] Comment: Glycemic Status References: Normal: ??<5.7% Pre-Diabetes: ??5.7% - 6.4% Diagnostic of Diabetes: ??> or = 6.5% (if confirmed) Est Avg Glucose 157 mg/dL 16:36 EDT [facility] Comment:The eAG represents t he A1c result expressed as average glucose in mg/dL. Blood VENOUS BLOOD / Unknown IV Draw / Unknown 11/11/2022 13:24 EDT 11/11/2022 13:35 EDT Stephon Sosa CHEMISTRY & BLOOD GA S ORDERABLES Performing Organization Address [facility] Co de Phone Number [facility] [address] [place] [address] * MRSA PCR (11/11/2022 13:24 EDT) MRSA/Staph aureus Result No Staphylococcus aureus detected by PCR 11/11/2022 21:13 EDT [facility] Swab ENTIRE NARIS / Unknown Swab / Unknown 11/11/2022 13:24 EDT 11/11/2022 14:06 EDT Stephon Sosa MICROBIOLOGY - GENER AL ORDERABLES Performing Organization Address [facility] Co de Phone Number [facility] [address] [place] [address] * (ABNORMAL) LACTIC ACID (11/11/2022 13:24 EDT) Lactic Acid 5.0(HH) <=2.0 mmol/L 11/11/2022 13:53 EDT [facility] Blood VENOUS BLOOD / Unknown IV Draw / Unknown 11/11/2022 13:24 EDT 11/11/2022 13:35 EDT Stephon Sosa CHEMISTRY & BLOOD GA S ORDERABLES Performing Organization Address [facility] de Phone Number [facility] [address] [place] [address] * MAGNESIUM (11/11/2022 13:24 EDT) Magnesium 2.0 1.7 - 2.8 mg/dL 11/11/2022 13:51 EDT [facility] Blood VENOUS BLOOD / Unknown IV Draw / Unknown 11/11/2022 13:24 EDT 11/11/2022 13:35 EDT Stephon Soas CHEMISTRY & BLOOD GA S ORDERABLES Performing Organization Address [facility] de Phone Number [facility] [address] [place] [address] * (ABNORMAL) TROPONIN I (11/11/2022 13:24 EDT) Troponin I (ng/mL) 34.700(H) <0.034 ng/mL 11/11/2022 14:04 EDT [facility] Blood VENOUS BLOOD / Unknown IV Draw / Unknown 11/11/2022 13:24 EDT 11/11/2022 13:35 EDT Narrative [facility] - 11/11/2022 14:04 EDT The results of this assay can be falsely lowered due to the consumption of Biotin. Stephon Sosa CHEMISTRY & BLOOD GA S ORDERABLES Performing Organization Address [facility] de Phone Number [facility] [address] [place] [address] * (ABNORMAL) PTT (11/11/2022 13:24 EDT) PTT 22(L) 26 - 37 secs 11/11/2022 14:03 EDT [facility] Blood VENOUS BLOOD / Unknown IV Draw / Unknown 11/11/2022 13:24 EDT 11/11/2022 13:35 EDT Stephon Sosa HEMATOLOGY & PF4 ORD ERABLES [facility] [address] [place] [address] * FIBRINOGEN (11/11/2022 13:24 EDT) Pathologist [facility] Fibrinogen 245 171 - 384 mg/dL 11/11/2022 14:01 EDT [facility] Blood VENOUS BLOOD / Unknown IV Draw / Unknown 11/11/2022 13:24 EDT 11/11/2022 13:35 EDT Stephon Sosa HEMATOLOGY & PF4 ORD ERABLES Performing Organization Address [facility] Co de Phone Number [facility] [address] [place] [address] * (ABNORMAL) PROTIME (11/11/2022 13:24 EDT) [facility] I.N.R. 1.2(H) 0.9 - 1.1 Ratio 11/11/2022 14:03 EDT [facility] Pro Time 13.5(H) 9.7 - 12.8 secs 11/11/2022 14:03 EDT [facility] Blood VENOUS BLOOD / Unknown IV Draw / Unknown 11/11/2022 13:24 EDT 11/11/2022 13:35 EDT Narrative [facility] - 11/11/2022 14:03 EDT Moderate Intensity Coumadin INR = 2.0-3.0 Adjustments in anticoagulant therapy dose should be based on the INR and NOT on the Protime. Stephon Sosa HEMATOLOGY & PF4 ORD ERABLES Performing Organization Address City/[facility] Co de Phone Number [facility] [address] [place] [address] * (ABNORMAL) COMPLETE BLOOD COUNT AND DIFFERENTIAL (11/11/2022 13:24 EDT) WBC 14.11(H) 4.00 - 12.40 K/cmm 11/11/2022 14:11 EDT [facility] RBC 2.96(L) 3.86 - 5.04 M/cmm 11/11/2022 14:11 [facility] Hemoglobin 9.0(L) 11.6 - 15.2 g/dL 11/11/2022 14:11 [facility] HCT 25.9(L) 34.9 - 44.4 % 11/11/2022 14:11 [facility] MCV 88 81 - 98 fL 11/11/2022 14:11 [facility] MCH 30.4 26.7 - 33.3 pg 11/11/2022 14:11 [facility] MCHC 34.7 32.1 - 35.9 g/dL 11/11/2022 14:11 [facility] RDW-CV 13.9 <14.7 % 11/11/2022 14:11 [facility] RDW-SD 43.2 <50.4 fl 11/11/2022 14:11 [facility] PLT 178 141 - 377 K/cmm 11/11/2022 14:11 [facility] MPV 11.4 9.5 - 12.7 fL 11/11/2022 14:11 [facility] % Neutrophils 74.8 % 11/11/2022 14:11 [facility] % Lymphocytes 17.2 % 11/11/2022 14:11 [facility] % Monocytes 6.4 % 11/11/2022 14:11 [facility] % Eosinophils 0.0 % 11/11/2022 14:11 [facility] % Basophils 0.1 % 11/11/2022 14:11 [facility] % Immature Grans 1.5 % 11/12/19 14:11 [facility] Absolute Neutrophils 10.55(H) 2.20 - 8.85 K/cmm 11/11/2022 14:11 [facility] Absolute Lymphocytes 2.42 1.09 - 3.30 K/cmm 11/11/2022 14:11 [facility] Absolute Monocytes 0.91(H) 0.10 - 0.80 K/cmm 11/11/2022 14:11 T [facility] Absolute Eosinophils 0.00(L) 0.03 - 0.61 K/cmm 11/11/2022 14:11 T [facility] ABS Basophils 0.02 0.01 - 0.11 K/cmm 11/11/2022 14:11 [facility] Absolute Immature Grans 0.21(H) 0.00 - 0.06 K/cmm 11/11/2022 14:11 T [facility] Type of Differential: Auto 11/11/2022 14:11 [facility] Blood VENOUS BLOOD / Unknown IV Draw / Unknown 11/11/2022 13:24 EDT 11/11/2022 13:35 EDT Stephon Sosa PACKAGES & DNA PROBE ORDERABLES Performing Organization Address [facility] Co de Phone Number [facility] [address] [place] [address] * TYPE AND SCREEN (11/11/2022 13:24 EDT) ABO A 11/11/2022 17:07 EDT [facility] Rh Factor Negative 11/11/2022 17:07 T [facility] Antibody Screen Negative 11/11/2022 17:07 [facility] Specimen Expires: 11/14/2022 @ 23:59 11/11/2022 17:07 [facility] Blood VENOUS BLOOD / Unknown IV Draw / Unknown 11/11/2022 13:24 EDT 11/11/2022 13:38 EDT Stephon Sosa BLOOD BANK TESTS Performing Organization Address City/[facility] Co de Phone Number [facility] [address] [place] [address] documented in this encounter Visit Diagnoses Diagnosis Gastrointestinal hemorrhage, unspecified gastrointestinal hemorrhage type Syncope, unspecified syncope type NSTEMI (non-ST elevated myocardial infarction) ([facility]) Acute myocardial infarction, subendocardial infarction, episode of care unspecified Duodenal erosion Duodenal ulcer, unspecified as acute or chronic, without hemorrhage, perforation, or obstruction Esophagitis Esophagitis, unspecified Acute blood loss anemia Acute posthemorrhagic anemia Hypertrophic cardiomyopathy (HCC-CMS) Other hypertrophic cardiomyopathy NSVT (nonsustained ventricular tachycardia) ([facility]) Paroxysmal ventricular tachycardia GI bleed Hemorrhage of gastrointestinal tract, unspecified Syncope Syncope and collapse NSTEMI (non-ST elevated myocardial infarction) ([facility]) Acute myocardial infarction, subendocardial infarction, episode of care unspecified Duodenal erosion Duodenal ulcer, unspecified as acute or chronic, without hemorrhage, perforation, or obstruction Esophagitis Esophagitis, unspecified Acute blood loss anemia Acute posthemorrhagic anemia NSTEMI (non-ST elevated myocardial infarction) ([facility]) Acute myocardial infarction, subendocardial infarction, episode of care unspecified Hypertrophic cardiomyopathy ([facility]) Other hypertrophic cardiomyopathy NSVT (nonsustained ventricular tachycardia) ([facility]) Paroxysmal ventricular tachycardia documented in this encounter Admitting Diagnoses Diagnosis GI bleed Hemorrhage of gastrointestinal tract, unspecified documented in this encounter Administered Medications Inactive Administered Medications - up to 3 most recent administrations Medication Order MAR Action Action Date Dose Rate Site acetaminophen (TYLENOL) tablet 650 mg 650 mg, oral, EVERY 6 HOURS PRN, Starting on Wed11/11/22 at 2032, Until 11/14/22 at 1948, Pain, Routine Given 11/11/2022 20:53 EDT 650 mg dextrose 50 % solution 12.5 g 12.5 g (25 mL), intravenous, PRN, Starting on Wed11/13/22 at 0954, Until 11/14/22 at 1948, Low Blood Sugar, Routine fentaNYL citrate (PF) 50 mcg/mL injection 1 dose, Starting on Tash 11/12/22 at 1603, Until Tash 11/12/22 at 1610 fentaNYL citrate (PF) injection 25 mcg 25 mcg, intravenous, PRN, Starting on Wed11/12/22 at 1623, Until Wed11/13/22 at 1330, procedure, Routine Given 11/12/2022 16:10 EDT 25 mcg gabapentin (NEURONTIN) capsule 600 mg 600 mg, oral, 2 TIMES DAILY, First dose on Wed11/11/22 at 2130, Until Discontinued, Routine Given 11/14/2022 9:37 EDT 600 mg Given 11/13/2022 21:15 EDT 600 mg Given 11/13/2022 8:55 EDT 600 mg glucagon injection 1 mg 1 mg, intramuscular, PRN, Starting on Wed11/13/22 at 0954, Until 11/14/22 at 1948, Other, Low blood sugar, Routine insulin aspart U-100 (NOVOLOG FLEXPEN) injection subcutaneous, EVERY 6 HOURS, First dose on Wed11/11/22 at 1430, Until Discontinued, Routine, Indications: SUPPLEMENTAL INSULIN Given 11/12/2022 6:12 EDT 5 Units Given 11/12/2022 0:17 EDT 5 Units Given 11/11/2022 18:29 EDT 5 Units insulin aspart U-100 (NOVOLOG FLEXPEN) injection subcutaneous, 3 TIMES DAILY WITH MEALS, First dose on Wed11/13/22 at 1200, Until Discontinued, Routine Given 11/14/2022 17:03 EDT 5 Units Given 11/14/2022 11:48 EDT 5 Units Given 11/13/2022 17:14 EDT 5 Units insulin glargine (LANTUS SOLOSTAR/SEMGLEE) injection pen 10 Units 10 Units, subcutaneous, AT BEDTIME, First dose on Wed11/11/22 at 2100, Until Discontinued, Routine Given 11/11/2022 20:54 EDT 10 Units insulin glargine (LANTUS SOLOSTAR/SEMGLEE) injection pen 20 Units 20 Units, subcutaneous, AT BEDTIME, First dose (after last modification) on Wed11/12/22 at 2100, Until Discontinued, Routine Given 11/13/2022 23:49 EDT 20 Units Given 11/12/2022 20:26 EDT 20 Units insulin regular (NOVOLIN R) injection subcutaneous, EVERY 6 HOURS, First dose on Wed11/12/22 at 1200, Until Discontinued Given 11/13/2022 6:19 EDT 2 Units Given 11/13/2022 0:28 EDT 2 Units Given 11/12/2022 18:34 EDT 5 Units ketAMINE (KETALAR) 10 mg/mL IV injection vial 1 dose, Starting on Wed11/12/22 at 1603, Until Wed11/14/22 at 1948 lidocaine (PF) 10 mg/mL (1 %) injection 2 mg 2 mg, intradermal, PRN, 4 doses, Starting on Wed11/11/22 at 1307, Until 11/14/22 at 1948, peripheral intravenous catheter placement, Routine metoprolol TARtrate (LOPRESSOR) tablet 12.5 mg 12.5 mg, oral, 2 TIMES DAILY, First dose on Wed11/13/22 at 2100, Until Discontinued, Routine Given 11/14/2022 9:37 EDT 12 .5 mg Given 11/13/2022 21:14 EDT 12.5 mg midazolam (PF) (VERSED) 1 mg/mL injection 1 dose, Starting on Wed11/12/22 at 1602, Until Wed11/12/22 at 1610 midazolam (PF) (VERSED) injection 4 mg 4 mg, intravenous, NOW X1, 1 dose, On Wed11/12/22 at 1645, Routine Given 11/12/2022 16:10 EDT 4 mg octreotide (SANDOSTATIN) 500 mcg in sodium chloride (NS) 0.9 % 250 mL infusion 50 mcg/hr (25 mL/hr), intravenous, CONTINUOUS, Starting on Wed11/11/22 at 1345, Until Wed11/11/22 at 1522, Routine Rate Documented 11/11/2022 15:00 EDT 50 mcg/hr 25 mL/hr New Bag 11/11/2022 14:00 EDT 50 mcg/hr 25 mL/hr ondansetron (PF) (ZOFRAN) injection 4 mg 4 mg, intravenous, PRN, Starting on Wed11/12/22 at 1602, Until Wed11/14/22 at 1948, Nausea, Vomiting, Routine, Intraprocedure pantoprazole (PROTONIX) injection 40 mg 40 mg, intravenous, 2 TIMES DAILY, First dose on Wed11/11/22 at 2100, Until Discontinued, Routine Given 11/14/2022 9:37 EDT 40 mg Given 11/13/2022 21:15 EDT 40 mg Given 11/13/2022 8:56 EDT 40 mg perflutren lipid microspheres (DEFINITY) 0.165 mg in sodium chloride (PF) 1 mL 0.165 mg, intravenous, NOW X1, 1 dose, On Wed11/11/22 at 1530, Routine Given 11/11/2022 14:59 EDT 2 mL IV sodium chloride 0.9 % (flush) flush 5 mL 5 mL, intravenous, EVERY 8 HOURS, First dose on Tash 11/12/22 at 1630, Until Discontinued, Routine, Preprocedure Given 11/14/2022 9:42 EDT 5 mL Given 11/14/2022 2:16 EDT 5 mL Given 11/13/2022 16:49 EDT 5 mL sodium chloride 0.9 % (flush) flush 5 mL 5 mL, intravenous, PRN, Starting on Tash 11/12/22 at 1602, Until 11/14/22 at 1948, Line Care, Routine, Preprocedure documented in this encounter Discontinued Medications Medication Sig Discontinue Reason Start Date End Da te mupirocin (BACTROBAN) 2 % ointment APPLY ONE APPLICATION TOPICALLY TO AFFECTED AREA THREE TIMES A DAY FOR 10 DAYS Therapy completed 05/05/2021 11/13/2022 empagliflozin (JARDIANCE) 10 mg tablet Take 1 Tablet by mouth daily. Therapy completed 08/05/2021 11/13/2022 candesartan (ATACAND) 32 mg tablet Take 32 mg by mouth daily. 11/14/2022 apixaban (ELIQUIS) 5 mg tablet Take 5 mg by mouth 2 times daily. 11/14/2022 documented as of this encounter Active and Recently Administered Medications Times are shown in EDT. Scheduled Medication Order 11/12/2022 11/13/2022 11/14/2022 gabapentin (NEURONTIN) capsule 600 mg 600 mg, oral, 2 TIMES DAILY, First dose on Wed11/11/22 at 2130, Until Discontinued, Routine 0838 (Given - Provider: Andrea Lee RN)2025 (Given - Provider: Yecenia Cheung RN) 0855 (Given - Provider: Andrea Lee RN)2114 (Given - Provider: Raad Pritchard RN) 0937 (Given - Provider: Kalyani Olguin RN) insulin aspart U-100 (NOVOLOG FLEXPEN) injection (CANCELED) subcutaneous, EVERY 6 HOURS, First dose on Wed11/11/22 at 1430, Until Discontinued, Routine, Indications: SUPPLEMENTAL INSULIN 0017 (Given - Provider: Yecenia Cheung RN)0612 (Given - Provider: Yecenia Jonatan, RN) insulin aspart U-100 (NOVOLOG FLEXPEN) injection subcutaneous, 3 TIMES DAILY WITH MEALS, First dose on Wed11/13/22 at 1200, Until Discontinued, Routine 1321 (Given - Provider: Kalyani Olguin RN)1714 (Given - Provider: Kalyani Olguin RN - Comment: BS [phone]) 0800 (Not Given - Provider: Kalyani Olguin RN - Reason: Other - Comment: Pt ate prior to FS - Spoke with MD who stated to hold insulin.)1148 (Given - Provider: Kalyani Olguin RN - Comment: BS [phone])1703 (Given - Provider: Steve Sanchez RN) insulin glargine (LANTUS SOLOSTAR/SEMGLEE) injection pen 20 Units 20 Units, subcutaneous, AT BEDTIME, First dose (after last modification) on Wed11/12/22 at 2100, Until Discontinued, Routine 2025 (Given - Provider: Yecenia Cheung RN) 2349 (Given - Provider: Raad Pritchard, JALEN) insulin regular (NOVOLIN R) injection (CANCELED) subcutaneous, EVERY 6 HOURS, First dose on Wed11/12/22 at 1200, Until Discontinued 1208 (Given - Provider: Andrea Lee RN)1834 (Given - Provider: Andrea Lee RN) 0028 (Given - Provider: Jered Aguilar RN - Comment: [phone] (Given - Provider: Yecenia Cheung RN) metoprolol TARtrate (LOPRESSOR) tablet 12.5 mg 12.5 mg, oral, 2 TIMES DAILY, First dose on Wed11/13/22 at 2100, Until Discontinued, Routine 2113 (Given - Provider: Raad Pritchard, RN) 0937 (Given - Provider: Kalyani Olguin RN) midazolam (PF) (VERSED) injection 4 mg (COMPLETED) 4 mg, intravenous, NOW X1, 1 dose, On Wed11/12/22 at 1645, Routine 1610 (Given - Provider: Andrea Lee RN) pantoprazole (PROTONIX) injection 40 mg 40 mg, intravenous, 2 TIMES DAILY, First dose on Wed11/11/22 at 2100, Until Discontinued, Routine 0838 (Given - Provider: Andrea Lee RN)202 (Given - Provider: Yecenia Cheung RN) 0856 (Given - Provider: Andrea Lee RN)2115 (Given - Provider: Raad Pritchard, RN) 0937 (Given - Provider: Kalyani Olguin, JALEN) sodium chloride 0.9 % (flush) flush 5 mL(Linked Group 1) 5 mL, intravenous, EVERY 8 HOURS, First dose on Tash 11/12/22 at 1630, Until Discontinued, Routine, Preprocedure 1722 (Given - Provider: Andrea Lee RN) 0031 (Given - Provider: Jered Aguilar RN)0800 (Given - Provider: Andrea Lee RN)1649 (Given - Provider: Kalyani Olguin, RN) 0216 (Given - Provider: Raad Pritchard, RN)0942 (Given - Provider: Kalayni Olguin, JALEN)1615 (Not Given - Provider: Steve Sanchez RN - Reason: Loss of IV access - Comment: discharging) PRN Medication Order 11/12/2022 11/13/2022 11/14/2022 acetaminophen (TYLENOL) tablet 650 mg 650 mg, oral, EVERY 6 HOURS PRN, Starting on Wed11/11/22 at 2032, Until 11/14/22 at 1948, Pain, Routine dextrose 50 % solution 12.5 g 12.5 g (25 mL), intravenous, PRN, Starting on Wed11/13/22 at 0954, Until 11/14/22 at 1948, Low Blood Sugar, Routine fentaNYL citrate (PF) injection 25 mcg (CANCELED) 25 mcg, intravenous, PRN, Starting on Wed11/12/22 at 1623, Until Wed11/13/22 at 1330, procedure, Routine 1610 (Given - Provider: Andrea Lee RN) glucagon injection 1 mg 1 mg, intramuscular, PRN, Starting on Wed11/13/22 at 0954, Until 11/14/22 at 1948, Other, Low blood sugar, Routine lidocaine (PF) 10 mg/mL (1 %) injection 2 mg 2 mg, intradermal, PRN, 4 doses, Starting on Wed11/11/22 at 1307, Until 11/14/22 at 1948, peripheral intravenous catheter placement, Routine ondansetron (PF) (ZOFRAN) injection 4 mg 4 mg, intravenous, PRN, Starting on Wed11/12/22 at 1602, Until 11/14/22 at 1948, Nausea, Vomiting, Routine, Intraprocedure sodium chloride 0.9 % (flush) flush 5 mL 5 mL, intravenous, PRN, Starting on Tash 11/12/22 at 1602, Until 11/14/22 at 1948, Line Care, Routine, Preprocedure No Frequency Medication Order 11/12/2022 11/13/2022 11/14/2022 ketAMINE (KETALAR) 10 mg/mL IV injection vial 1 dose, Starting on Tash 11/12/22 at 1603, Until 11/14/22 at 1948 Linked Groups Order Group 1: Insert Saline Lock (CANCELED) Routine, ONE TIME, On Tash 11/12/22 at 1605, For 1 occurrence, Preprocedure And sodium chloride 0.9 % (flush) flush 5 mLJump to med 5 mL, intravenous, EVERY 8 HOURS, First dose on Tash 11/12/22 at 1630, Until Discontinued, Routine, Preprocedure documented in this encounter Orders Medications Ordered That Guy ht Not Have Been Administered Count Last Ordered Date First Ordered Date dextrose 50 % solution 12.5 g 2 11/13/2022 11/11/2022 glucagon injection 1 mg 3 11/13/202210/20 diphenhydrAMINE (BENADRYL) injection 25 mg 1 11/12/2022 fentaNYL citrate (PF) 50 mcg/mL injection 1 11/12/2022 ketAMINE (KETALAR) 10 mg/mL IV injection vial 1 11/12/2022 lactated ringers (LR) infusion 1 11/12/2022 lidocaine (PF) 10 mg/mL (1 % ) injection 2 mg 3 11/12/2022 11/11/2022 ondansetron (PF) (ZOFRAN) injection 4 mg 1 11/12/2022 sodium chloride 0.9 % (flush) flush 5 mL 1 11/12/2022 sodium chloride 0.9 % (NS) infusion 1 11/12 Lab Orders Without Results Count Last Ordered D ate First Ordered Date COMPLETE BLOOD COUNT 1 11/14/2022 Diet Count Last Ordered Date First Orde red Date DISCHARGE DIET 1 11/14/2022 Nursing Count Last Ordered Date First Orde red Date ACTIVITY INSTRUCTIONS 1 11/14/2022 BATHING INSTRUCTIONS 1 11/14/2022 PT Count Last Ordered Date First Orde red Date PT EVALUATION AND TREAT 1 11/14/2022 IV Count Last Ordered Date First Orde red Date IV REQUEST 1 11/12/2022 Admission Count Last Ordered Date First Orde red Date ADMIT TO INPATIENT 1 11/11/2022 Transfer Count Last Ordered Date First Orde red Date MICU BED REQUEST (TO REQUEST NON-ICU BED) 1 11/13/2022 Discharge Count Last Ordered Date First Orde red Date DISCHARGE PATIENT 1 11/14/2022 Legal Count Last Ordered Date First Orde red Date MISCELLANEOUS DISCHARGE INSTRUCTIONS 10/20 documented in this encounter Care Teams Electronics Recycler Relationship Specialty Start Date End Date Bryant Crain MD [address] [address] PCP - General 05/04/15 05/17/23 Carlos Macario NP [address] [place] [address] [phone] Consulting Clinician Cardiovascular Disease 09/14/21 documented as of this encounter
--- OUTSIDE RECORDS SUMMARY | 2024-01-07 11:14 | XMS_ITS | Encounter Summary ---
Author Organization [facility] Address [address] [place] [address] Care Team Providers Care Rehabilitation Engineer Name Role Phone Bryant Crain MD Primary Care Provider [phone] Carlos Ha VISUAL ARTS TEACHER Unavailable [phone] Elba Jett MD Primary Care Provider [phone] Encounter Details Date Type Department Care Team (Late st Contact Info) Description 09/20/2020 Lab Requisition [facility] Pathology & Laboratory Medicine - [address] [address] Outr Resulting Lab, Provider Social History [...] Yes 11/23/2019 documented as of this encounter Plan of Treatment Upcoming Encounters Date Type Department Care Team (Late st Contact Info) Description 03/08/2024 9:30 EDT Ancillary Procedure [facility] Cardiology - [address] [place], [place] [id number] 03/08/2024 10:15 EDT Ancillary Procedure [facility] [place] [address] 04/05/2024 10:00 EDT Ancillary Procedure [facility] [address] [place], [place] [id number] 04/05/2024 10:00 EDT Office Visit [facility] [address] [place] [id number] Carlos Ha NP [address] [facility] [address] [place] [phone] documented as of this encounter Procedures Procedure Name Priority Date/Time Associated Diagnosis Comments ZZCOVID-19 TEST [facility] PCR Today 09/20/2020 10:40 EDT COVID-19 TESTING Routine 09/20/2020 10:4 0 EDT documented in this encounter Results * COVID-19 TEST [facility] PCR (09/20/2020 10:40 EDT) Swab ENTIRE NASOPHARYNX / Unknown 09/20/2020 10:40 EDT 09/20/2020 20:44 EDT Provider Outr Resulting Lab MICROBIOLOGY - GENERAL ORDERABLES [facility] [address] [place] [address] * COVID-19 TESTING (09/20/2020 10:40 EDT) COVID-19 rt-PCR Result Negative Negative 09/21/2020 16:50 EDT [facility] Comment: This test has not been FDA cleared or approved. This test has been authorized by FDA under an EUA for use by authorized laboratories. This test has been authorized only for detection of nucleic acid from 2019-nCoV, not for any other viruses or pathogens. This test is only authorized for the duration of the declaration that circumstances exist justifying the authorization of emergency use of in vitro diagnostic tests for detection and/or diagnosis of 2019-nCoV under section 564(b)(1) of Act, 21 U.S.C ?? 360bbb-3(b) (1), unless the authorization is terminated or revoked sooner. Negative results do not preclude 2019-nCoV infection and should not be used as the sole basis for treatment or other patient management decisions. Negative results must be combined with clinical observations, patient history, and epidemiological information. This test was developed and its performance characteristics determined by [facility]. It has not been cleared or approved by the US Food and Drug Administration. FDA does not require this test to go through premarket FDA review. This test is used for clinical purposes. It should not be regarded as investigational or for research. This laboratory is certified under the Clinical Laboratory Improvement Amendments (CLIA) as qualified to perform high complexity clinical laboratory testing. This test is based on the [facility] COVID-19 Emergency Use Authorization (EUA) assay, with minor modification as defined by the FDA Performed on the [employer] 7 Flex RT-PCR System. Performing Lab [facility] 09/21/2020 16:50 EDT [facility] Swab 09/20/2020 10:4 0 EDT 09/20/2020 20:44 EDT Provider Outr Resulting Lab MICROBIOLOGY - GENERAL ORDERABLES [facility] [address] [place] [address] documented in this encounter Visit Diagnoses Not on filedocumented in this encounter Care Teams Rehabilitation Engineer Relationship Specialty Start Date End Date Bryant Crain MD [address] [place], [place] [id number] PCP - General 05/04/15 05/17/23 Elba Jett MD [address] [place] [phone] PCP - General Family Medicine - Primary Care 05/18/23 Carlos Ha NP [address] [place] [address] [phone] Consulting Clinician Cardiovascular Disease 09/14/21 documented as of this encounter
--- OUTSIDE RECORDS SUMMARY | 2024-01-07 11:14 | XMS_ITS | Encounter Summary ---
Author Organization [facility] Address [address] [place] [address] Care Team Providers Care Manager Pool Name Role Phone Bryant Crain MD Primary Care Provider [phone] Carlos Ha FEEDER TENDER Unavailable [phone] Reason for Visit * Reason Comments Follow-up Pacemaker/Device Check Encounter Details Date Type Department Care Team (Latest Contact Info) Description 09/16/2021 11:00 EDT [facility] Visit [facility] Cardiology Clinic [address] [place] [address] Carlos Ha FEEDER TENDER [address] [facility] [address] [place] [address] Paroxysmal atrial fibrillation (HCC-CMS) (HCC) (Primary Dx); Dilated cardiomyopathy (HCC-CMS) (HCC); Essential hypertension; Mixed hyperlipidemia Social History Tobacco [...] Sign Reading Time Taken Comments Blood Pressure 130/78 09/16/2021 1103 EDT Pulse 76 09/16/2021 1041 EDT Temperature - - Respiratory Rate - - Oxygen Saturation 95% 09/16/2021 1041 EDT Inhaled Oxygen Concentration - - Weight 73 kg (161 lb) 09/16/2021 1041 EDT Height 162.6 cm (5' 4) 09/16/2021 1041 EDT Body Mass Index 27.64 09/16/2021 1041 EDT documented in this encounter Functional Status [...] this encounter Progress Notes * Carlos Ha, FEEDER TENDER - 09/16/2021 1100 EDT CC: Follow-up and Pacemaker/Device Check HPI: This is a pleasant 71-year-old female who is here for a follow-up visit with program evaluation of her Medtronic loop recorder implanted for cryptogenic stroke. Her device has reached EOS. Her past medical history is significant for paroxysmal atrial fibrillation (she has had no further episodes noted on her event since December 2018), [place] (1 episode August 2019 with negative MPI), hypertension, hyperlipidemia (LDL 156 in 2019: She has been intolerant to multiple statins), and type 2 diabetes. She has a history of cryptogenic stroke in the fall 2016 with residual muscle weakness and balance issues. She uses a cane to walk. She denies chest pain, shortness of breath, palpitations, orthopnea, PND, or syncope. She has recently been diagnosed with Parkinson's disease. She is swimming 3x/week and doing PT. PMH: Past Medical History: Diagnosis Date ??? Cerebrovascular accident (CVA) (HCC-CMS) ([facility]) 06/01/2019 ??? Diabetes mellitus, type 2 ([facility]) 01/26/2011 On metformin On metformin ??? Essential hypertension 06/01/2019 ??? Mixed hyperlipidemia 06/05/2019 ??? Nonrheumatic aortic valve stenosis 06/01/2019 ??? Paroxysmal atrial fibrillation (HCC-CMS) ([facility]) 06/01/2019 SH/FH: reviewed and updated MEDICATIONS: Medications Prior to Today's Visit Medication Sig ??? acetaminophen (TYLENOL 8 HOUR) 650 mg CR tablet 2 tab(s) orally twice a day, only as needed ??? apixaban (ELIQUIS) 5 mg tablet Take 5 mg by mouth 2 times daily. ??? aspirin 81 mg EC tablet Take 81 mg by mouth daily. ??? BD ULTRA-FINE MICRO PEN NEEDLE 32 gauge x 1/4 needle ??? blood glucose meter by [facility] (non-drug; combo route) route daily. One touch verio meter or best covered by insurance. ??? candesartan (ATACAND) 32 mg tablet Take [...] daily. (Patient not taking: Reported on 09/16/2021) ??? flash glucose scanning reader (FREESTYLE VICKY 2 READER) misc 1 Device by [facility] (non-drug; comboroute) route daily. Dispense one reader ??? flash glucose sensor (FREESTYLE VICKY 2 SENSOR) kit 1 Units by [facility] (non- drug; combo route) route every 14 days. ??? gabapentin (NEURONTIN) 300 mg capsule Take [...] mg by mouth 2 times daily. ??? methylPREDNISolone (MEDROL DOSEPACK) 4 mg tablet ??? mupirocin (BACTROBAN) 2 % ointment APPLY [...] ??? Propoxyphene N-Acetaminophen Other reaction(s): Hallucinations ??? Ketvpxm-Pml-Xqq Reductase Inhibitors ??? Trulicity [Dulaglutide] Gi Side effect ROS: The rest of the pertinent 10 point review of systems is negative other than mentioned in the HPI PHYSICAL EXAM: Vitals: 09/16/21 1041 09/16/21 1103 BP: (!) 142/78 130/78 BP Cuff Location: Right arm BP Patient Position: Sitting BP Cuff Sizes: Adult, regular Pulse: 76 SpO2: 95% Weight: 73 kg (161 lb) Height: 162.6 cm (64) GENERAL APPEARANCE: No acute distress HEENT: PERRLA. EOMI. Conjunctiva clear. Sclera anicteric NECK: Supple with full range of motion. No lymphadenopathy. CHEST: Normal shape and expansion HEART: Regular [...] and a nonspecific intraventricular conduction defect. ECHOCARDIOGRAM 12/18/2020 (completed at [facility]) LV is normal size and function. EF 55% with no segmental wall motion abnormality. There is severe concentric LVH. RV normal size and function. Left atrium and right atrium normal size. There is no significant valvular disease. Lab Results Component Value Date HGB 13.4 03/15/2018 PLT 352 03/15/2018 CHOL 143 08/01/2021 HDL 40 08/01/2021 LDL 156 (H) 06/05/2019 LDLBASE 65 08/01/2021 TRIG 188 08/01/2021 HGBA1C 7.0 (A) 03/06/2021 ASSESSMENT: Problem List Items Addressed This Visit Cardiac/Vasculature Essential hypertension Relatively well controlled Paroxysmal atrial fibrillation (HCC-CMS) ([facility]) - Primary She is appropriately anticoagulated for stroke risk reduction without bleeding complications. Mixed hyperlipidemia Dilated cardiomyopathy (HCC-CMS) ([facility]) Improved EF on echo 11/2020 (55%) I spent a total of 30 minutes on the date of this encounter which includes time with the patient, time reviewing medical records and laboratory results, time updating the chart information, and time composing this note. No procedures were performed at the time of the visit. Carlos Ha NP documented in this encounter Miscellaneous Notes * Assessment & Plan Note - Carlos Ha NP - 09/16/2021 1132 EDTAssociated Problem(s): Mixed hyperlipidemia LDL treated to target. Continue current dose of Repatha * Assessment & Plan Note - Carlos Ha NP - 09/16/2021 1129 EDTAssociated Problem(s): Paroxysmal atrial fibrillation ([facility]) She is appropriately anticoagulated for stroke risk reduction without bleeding complications. * Assessment & Plan Note - Carlos Ha NP - 09/16/2021 1128 EDTAssociated Problem(s): Essential hypertension Relatively well controlled * Assessment & Plan Note - Carlos Ha NP - 09/16/2021 1127 EDTAssociated Problem(s): Dilated cardiomyopathy ([facility]) Improved EF on echo 11/2020 (55%) documented in this encounter Plan of Treatment Upcoming Encounters Date Type Department Care Team (Late st Contact Info) Description 03/08/2024 9:30 EDT Ancillary Procedure [facility] Cardiology - [facility] [place] [address] 03/08/2024 10:15 EDT Ancillary Procedure [facility] Cardiology [place] [address] 04/05/2024 10:00 EDT Ancillary Procedure [facility] Cardiology Clinic [address] [place] [address] 04/05/2024 10:00 EDT Office Visit [facility]iology Clinic [address] [place] [phone] Carlos Ha NP [address] [place] [address] [place] [phone] documented as of this encounter Visit Diagnoses Diagnosis Paroxysmal atrial fibrillation (HCC-CMS)- Primary Atrial fibrillation Dilated cardiomyopathy (HCC-CMS) Other primary cardiomyopathies Essential hypertension Unspecified essential hypertension Mixed hyperlipidemia documented in this encounter Discontinued Medications Medication Sig Discontinue Reason Start Date End Da te methylPREDNISolone (MEDROL DOSEPACK) 4 mg tablet Therapy completed 08/04/2021 09/16/2021 documented as of this encounter Historical Medications * This list may reflect changes made after this encounter. Medication Sig Dispensed Refills Start Date End Date Cholecalciferol, Vitamin D3, 10 mcg (400 unit) tablet Take 1 Tablet by mouth daily. cyanocobalamin (VITAMIN B-12) 500 mcg tablet Take 1 Tablet by mouth daily. added in this encounter Care Teams Manager Pool Relationship Specialty Start Date End Date Bryant Crain MD [address] [place] [address] PCP - General 05/04/15 05/17/23 Calros Ha NP [address] [place] [address] [address] [place] [phone] Consulting Clinician Cardiovascular Disease 09/14/21 documented as of this encounter
--- OUTSIDE RECORDS SUMMARY | 2024-01-07 11:14 | XMS_ITS | Encounter Summary ---
Author Organization [facility] Address [address] [place] [address] Care Team Providers Care Director Of Early Childhood Education Name Role Phone Bryant Crain MD Primary Care Provider [phone] Encounter Details Date Type Department Care Team (Late st Contact Info) Description 12/09/2020 Orders Only [facility] Cardiology Clinic [address] [place] [id number] Sabrina Herring MA Cryptogenic stroke (HCC-CMS) (Primary Dx) Social History [...] Info) Description 03/08/2024 9:30 EDT Ancillary Procedure [facility] Cardiology - [address] [place] [address] 03/08/2024 10:15 EDT Ancillary Procedure [facility] Cardiology - [address] [place] [address] 04/05/2024 10:00 EDT Ancillary Procedure [facility]iology Clinic [address] [place] [id number] 04/05/2024 10:00 EDT Office Visit [facility]iology Clinic [address] [place], [place] [address] Carlos Ha NP [address] [facility] [address] [place] [address] documented as of this encounter Procedures Procedure Name Priority Date/Time Associated Diagnosis Comments CARDIAC IMPLANT CHECK - REMOTE MONITOR Routine 12/09/2020 16:48 EDT Cryptogenic stroke (HCC-CMS) documented in this encounter Results * CARDIAC IMPLANT CHECK - REMOTE - LOOP RECORDER (ILR) (12/09/2020 16:48 EDT) Anatomical Region Laterality Modality Device Narrative 12/12/2020 16:49 EDT I have reviewed the implantable loop recorder interrogation. ??I agree with the findings. See scanned document for details of remote download. Carlos Ha APRN Procedure Note Carlos Ha APRN - 12/12/2020 I have reviewed the implantable loop recorder interrogation. I agree withthe findings. See scanned document for details of remote download. Carlos Ha APRN Carlos Ha MISSILE TECHNICIAN CV IMPLANTABLE CARDI AC DEVICE documented in this encounter Visit Diagnoses Diagnosis Cryptogenic stroke (HCC-CMS)- Primary Unspecified cerebral artery occlusion with cerebral infarction documented in this encounter Care Teams Director Of Early Childhood Education Relationship Specialty Start Date End Date Bryant Crain MD [address] [place] [address] PCP - General 05/04/15 05/17/23 documented as of this encounter
--- OUTSIDE RECORDS SUMMARY | 2024-01-07 11:14 | XMS_ITS | Encounter Summary ---
Author Organization [facility] Address [address] [place] [address] Care Team Providers Care Saw Grinder Name Role Phone Bryant Crain MD Primary Care Provider [phone] Reason for Visit * Reason Comments Follow-up Encounter Details Date Type Department Care Team (Latest Contact Info) Description 10/02/2020 9:45 EDT Office Visit [facility] [address] [place] [address] Sarika Zamudio, COURT ATTENDANT 130 [facility]- [address] [place] [phone] Type 2 diabetes mellitus with hyperglycemia, with long-term current use of insulin ([facility]) (Primary Dx); Osteopenia after menopause; Hypercalcemia; Primary hyperparathyroidism ([facility]) Social History Tobacco Use Types Packs/Day Years [...] Sign Reading Time Taken Comments Blood Pressure 122/78 10/02/2020 0936 EDT Pulse 76 10/02/2020 0936 EDT Temperature - - Respiratory Rate - - Oxygen Saturation - - Inhaled Oxygen Concentration - - Weight 76.2 kg (168 lb) 10/02/2020 0936 EDT Height - - Body Mass Index 28.84 11/23/2019 0943 EDT documented in this encounter Functional Status [...] Yes 11/23/2019 documented as of this encounter Patient Instructions * Patient Instructions* Sarika Zamudio APRN - 10/02/2020 9:45 EDT A1C 7.1 Congratulated on changes! Increase ozempic 1 mg weekly injection. Decrease lantus 40 unit AM. Decrease humalog sliding scale: 100-150 2 units, 150-200 4 units 200-250 6 units 250-300 8 units Continue checking blood sugars 4X/day, fasting, before lunch/dinner and bedtime. Start lo CGM if able. Sent Lo 1 to use with her phone, download LibreView for use. Continue with diet and exercise changes! Follow-up in 2-3 months. Will get 24 hour urine calcium and creatinine. When she drops this off will get lab work done: CMP, mag, phosphorus and vitamin D. If these are negative will assess with KUB and will check 6 mo lab work. If results indicate surgical consult she is amenable to this. Get updated DEXA scan at same clinic as done before. Request disk of images to bring to next visit. documented in this encounter Ordered Prescriptions Prescription Sig Dispensed Refills Start Date End Da te blood glucose meterIndications:Type 2 diabetes mellitus with hyperglycemia, with long-term current use of insulin ([facility]) by misc (non-drug; combo route) route daily. One touch verio meter or best covered by insurance. 1 Each 10/02/2020 semaglutide (OZEMPIC) 1 mg/dose (2 mg/1.5 mL) pen injectorIndications:Typ e 2 diabetes mellitus with hyperglycemia, with long-term current use of insulin ([facility]) Inject 0.75 mL into the skin once a week. 6 Pen 3 10/02/2020 03/06/2021 flash glucose sensor (FREESTYLE LO 14 DAY SENSOR) kitIndications:Type 2 diabetes mellitus with hyperglycemia, with long-term current use of insulin ([facility]) 1 application by misc (non-drug; combo route) route continuous. 6 Kit 3 10/02/2020 10/29/2020 documented in this encounter Progress Notes * Sarika Zamudio, OPERATIONS RESEARCH DIRECTOR - 10/02/2020 0945 EDT Reason for Visit: DM f/up PCP: Dr. Crain OTHER PROVIDERS: Carlos Ha, RAHEEM cardiology Joanna Hart is a 70 y.o. female who presented to the clinic for a follow-up in [facility], with a history of DM for 14 yrs. Hx of HTN, PAF, HLT, cardiomyopathy, CVA X2 2019, hypomag, hypercalcemia. She lives with her at home. She has started taking repatha for the past 6 months or so and feels her BG's have increase since this. Random BG in clinic today 181. Had one egg and one piece of toast and coffee for breakfast. She has started the ozempic and is feeling well on this. She does not often take her humalog, has taken this about 3 times in the past week. Will if only ifBG >190 or above. Will then go according to our new chart. She has lowered her portions sizes as well, working on eating more vegetables. She inquires about starting Lo CGM today. Has eye visit this week in [place], she will fax visit notes. Had visit with podiatry, no concerns. PCP sent note with c/o mild asymptomatic hypercalcemia. 2018 DEXA showed osteopenia left femoral neck. She does have a history of kidney, only after her 3 , last one was about 36 years ago. Denies history of fractures or family history of. Is not currently on any treatment for osteopenia. She does take vitamin D and magnesium supplements. Reports she was mag depleted when she had her stroke 3 years ago. FMH DM: unsure if father had DM 4 of her siblings have TIIDM Recent A1C: 7.1 (09/2020) 8.4 (06/2020) Diabetic Medications: ozempic 0.5 mg weekly lantus 45 units AM Metformin XR 750 mg twice daily. humalog SS for meals: 100-150 6 units, 150-200 8 units 200-250 10 units 250-300 12 units Farxiga and trulicity/victoza intolerant-gave her abdominal pain. Current monitoring regimen: Frequency of monitoring? : 2-3X/day Fasting range: 110-214 Preprandial range: 142-214 Postprandial range: Any episodes of hypoglycemia? Yes, 88 she will feel more confused. Maybe once a month since starting the humalog Cause of hypoglycemia? humalog Nutrition Daily Recall: Breakfast: eggs w/ cheese/peppers/onions, coffee Lunch: half sandwich WW w/ cold cuts/cheese/lettuce/tomato, salad typically Dinner: protein: chicken/steak/meatloaf Vegetable: salad, green beans, corn, broccoli, carrots starch: potato, bread, rice Snacks: popcorn, cheese/crackers, peanuts *will have more snacks after dinner/evening Beverages: water, no etoh Exercise: swimming when able. Limited at this time. Has PT exercises she does do. Diabetes Related Problems Eye exam current (within one year): overdue. Has provider in [place] that she prefers. Has not been ableto go d/t COVID. No symptoms at this time. Last dental exam: overdue. Will schedule. CVD,PVD,CAD: HTN, HLD,CVA Statin: repatha injections. Aspirin: yes ACEI/ARB: candesartan 32 mg Prior visit with biochemical development engineer: yes, JALEN Hyman. Foot care: podiatry Comorbidities: Retinopathy: no Nephropathy/Kidney function: GFR 44 (05/2020) MCR up to date? No 147 (2018) Neuropathy: no sensation in BL feet/legs Review of Systems Constitutional: Negative. Eyes: Negative. Endocrine: Positive for polyuria. Neurological: Positive for numbness (BLLE). Physical Exam Constitutional: Appearance: Normal appearance. HENT: Head: Normocephalic and atraumatic. Cardiovascular: Rate and Rhythm: Normal rate and regular rhythm. Pulmonary: Effort: Pulmonary effort is normal. Breath sounds: Normal breath sounds. Skin: General: Skin is warm and dry. Neurological: Mental Status: She is alert and oriented to person, place, and time. Psychiatric: Mood and Affect: Mood normal. Behavior: Behavior normal. Thought Content: Thought content normal. Hemoglobin A1c, POC Date Value Ref Range Status 07/10/2020 8.4 (A) 5.7 % Final No results found for: MARY [id number] Lab Results Component Value Date NA 137 11/23/2019 K 5.1 (H) 11/23/2019 CL 108 11/23/2019 CO2 20 (L) 11/23/2019 BUN 26 11/23/2019 GLU 199 (H) 11/23/2019 CA 11.2 (H) 11/23/2019 Joanna Hart is a 70 y.o. female who presented to the clinic for a follow-up in [facility], with a history of DM for 14 yrs. Problem List Items Addressed This Visit Endocrine/Metabolic Diabetes mellitus, type 2 ([facility]) - Primary Controlled A1C 7.1 Congratulated on changes! Increase ozempic 1 mg weekly injection. Decrease lantus 40 unit AM. Decrease humalog sliding scale: 100-150 2 units, 150-200 4 units 200-250 6 units 250-300 8 units Continue checking blood sugars 4X/day, fasting, before lunch/dinner and bedtime. Start lo CGM if able. Sent Lo 1 to use with her phone, download LibreView for use. Continue with diet and exercise changes! Follow-up in 2-3 months. Relevant Medications blood glucose meter flash glucose sensor (FREESTYLE LO 14 DAY SENSOR) kit semaglutide (OZEMPIC) 1 mg/dose (2 mg/1.5 mL) pen injector Other Relevant Orders POCT GLUCOSE, MANUAL ENTRY POCT HEMOGLOBIN A1C Primary hyperparathyroidism ([facility]) Relevant Orders XR DEXA BONE DENSITY CALCIUM, URINE 24HR CREATININE, URINE 24HR COMPREHENSIVE METABOLIC PANEL (CMP) VITAMIN D (25,OH) MAGNESIUM PHOSPHORUS Genitourinary/Reproductive Hypercalcemia Discussed recent lab work and potential effects primary hyperparathyroidism and hypercalcemia. Reviewed plan below with patient, she is in agreement to go forward. Given patient information for further education. Will get 24 hour urine calcium and creatinine. When she drops this off will get lab work done: CMP, mag, phosphorus and vitamin D. If these are negative will assess with KUB and check 6 month calcium and every 3 years urine calcium. No longer need to check PTH, unless see a GFR decline. If results indicate surgical consult she is amenable to this. Relevant Orders XR DEXA BONE DENSITY CALCIUM, URINE 24HR CREATININE, URINE 24HR COMPREHENSIVE METABOLIC PANEL (CMP) VITAMIN D (25,OH) MAGNESIUM PHOSPHORUS Musculoskeletal Osteopenia after menopause Get updated DEXA scan at same clinic [facility]. Ordered faxed. Request disk of images to bring to next visit. Continue with DEXA every 2 years. Relevant Orders XR DEXA BONE DENSITY Patient Goals: A1C <7.5% Exercise: 150 minutes of CV exercise/week. Handouts provided for ongoing self education I spent a total of 60 minutes on the date of this encounter meeting with the patient and reviewing documentation/coordinating care as described in the above note. * Heidi Moore RN - 10/02/2020 0945 EDT Needs eye exam Letter sent Lab Results Component Value Date UABCR 375.4 07/10/2020 HGBA1C 8.4 (A) 07/10/2020 Glucose-182 documented in this encounter Miscellaneous Notes * Assessment & Plan Note - Sarika Zamudio APRN - 10/02/2020 1034 EDT Associated Problem(s): Osteopenia after menopause Get updated DEXA scan at same [facility]. Ordered faxed. Request disk of images to bring to next visit. Continue with DEXA every 2 years. * Assessment & Plan Note - Sarika Zamudio APRN - 10/02/2020 1033 EDT Associated Problem(s): Hypercalcemia Discussed recent lab work and potential effects primary hyperparathyroidism and hypercalcemia. Reviewed plan below with patient, she is in agreement to go forward. Given patient information for further education. Will get 24 hour urine calcium and creatinine. When she drops this off will get lab work done: CMP, mag, phosphorus and vitamin D. If these are negative will assess with KUB and check 6 month calcium and every 3 years urine calcium. No longer need to check PTH, unless see a GFR decline. If results indicate surgical consult she is amenable to this. * Assessment & Plan Note - Sarika Zamudio APRN - 10/02/2020 0953 EDT Associated Problem(s): Diabetes mellitus, type 2 ([facility]) Controlled A1C 7.1 Congratulated on changes! Increase ozempic 1 mg weekly injection. Decrease lantus 40 unit AM. Decrease humalog sliding scale: 100-150 2 units, 150-200 4 units 200-250 6 units 250-300 8 units Continue checking blood sugars 4X/day, fasting, before lunch/dinner and bedtime. Start lo CGM if able. Sent Lo 1 to use with her phone, download LibreView for use. Continue with diet and exercise changes! Follow-up in 2-3 months. documented in this encounter Plan of Treatment Upcoming Encounters Date Type Department Care Team (Late st Contact Info) Description 03/08/2024 9:30 EDT Ancillary Procedure [facility] - [facility] [address] 03/08/2024 10:15 EDT Ancillary Procedure [facility]iology [place] [address] 04/05/2024 10:00 EDT Ancillary Procedure [facility] [address] [place] [id number] 04/05/2024 10:00 EDT Office Visit [facility] [address] [place] [phone] Carlos Ha NP [address] [place], [place] [address] [address] [place] [address] documented as of this encounter Procedures Procedure Name Priority Date/Time Associated Diagnosis Comments POCT HEMOGLOBIN A1C Routine 12/04/2020 Type 2 diabetes mellitus with hyperglycemia, with long-term current use of insulin ([facility]) documented in this encounter Results * (ABNORMAL) POCT HEMOGLOBIN A1C (12/04/2020) Hemoglobin A1c, POC 6.9(A) 5.7 % [facility] POINT OF CARE Blood CAPILLARY BLOOD / Unknown 12/04/2020 Sarika Zamudio NP POINT OF CARE FUNMILAYO T ORDERABLES [facility] POINT OF CARE documented in this encounter Visit Diagnoses Diagnosis Type 2 diabetes mellitus with hyperglycemia, with long-term current use of insulin ([facility])- Primary Osteopenia after menopause Hypercalcemia Primary hyperparathyroidism ([facility]) Primary hyperparathyroidism documented in this encounter Discontinued Medications Medication Sig Discontinue Reason Start Date End Da te blood-glucose meter (ONE TOUCH BASIC SYSTEM MISC) -to test blood sugar - -test 2 x daily 10/02/2020 semaglutide (OZEMPIC) subcutaneous penIndications:Type 2 diabetes mellitus with hyperglycemia, with long-term current use of insulin ([facility]) Inject 0.25 mg into the skin once a week. 08/07/2020 10/02/2020 dapagliflozin 5 mg tablet Take 5 mg by mouth. 10/25/2019 documented as of this encounter Historical Medications * This list may reflect changes made after this encounter. Medication Sig Dispensed Refills Start Date End Date fluorouraciL (EFUDEX) 5 % creamIndications:uses in winter 1 03/06/2021 added in this encounter Care Teams Saw Grinder Relationship Specialty Start Date End Date Bryant Crain MD [address] [place], [place] [id number] PCP - General 05/04/15 05/17/23 documented as of this encounter
--- OUTSIDE RECORDS SUMMARY | 2024-01-07 11:14 | XMS_ITS | Encounter Summary ---
Author Organization [facility] Address [address] [place] [address] Care Team Providers Care Tractor Trailer Driver Name Role Phone Bryant Crain MD Primary Care Provider [phone] Encounter Details Date Type Department Care Team (Late st Contact Info) Description 04/09/2021 Results Only [facility] Card[facility] Clinic [address] [place] [address] Hayde Paul MD 130 [facility] [address] [place] [address] Social History Tobacco Use Types Packs/Day Years [...] Info) Description 03/08/2024 9:30 EDT Ancillary Procedure [facility] - [facility] [address] [place] [id number] 03/08/2024 10:15 EDT Ancillary Procedure [facility] - [facility] [address] [place], [place] [id number] 04/05/2024 10:00 EDT Ancillary Procedure [facility] [address] [place], [place] [id number] 04/05/2024 10:00 EDT Office Visit [facility] [address] [place] [address] Carlos Ha NP 130 [facility] [address] [place] [address] documented as of this encounter Procedures Procedure Name Priority Date/Time Associated Diagnosis Comments POCT GLUCOSE, INTERFACED Routine 04/09/2021 7:51 EDT documented in this encounter Results * (ABNORMAL) POCT GLUCOSE, INTERFACED (04/09/2021 7:51 EDT) Glucose, POC 131(H) 70 - 100 mg/dL 04/09/2021 8:09 EDT [facility] 04/09/2021 7:51 EDT 04/09/2021 8:09 EDT Hayde Paul MD POINT OF CARE T EST ORDERABLES [facility] [address] [place] [address] documented in this encounter Visit Diagnoses Not on filedocumented in this encounter Care Teams Tractor Trailer Driver Relationship Specialty Start Date End Date Bryant Crain MD [address] [place], [place] [phone] PCP - General 05/04/15 05/17/23 documented as of this encounter
--- OUTSIDE RECORDS SUMMARY | 2024-01-07 11:14 | XMS_ITS | Encounter Summary ---
Author Organization [facility] Address [address] [place] [address] Care Team Providers Care Channel Lip Wetter Name Role Phone Bryant Crain MD Primary Care Provider [phone] Carlos Ha COMMERCIAL PRINT SALESMAN Unavailable [phone] Reason for Visit * Reason Onset Date Comments Discuss Possible Transfer 11/11/2022 Encounter Details Date Type Department Care Team (Late st Contact Info) Description 11/11/2022 Telephone [facility] Unit [address] [place] [address] Mauri Pizano MD [address] [phone] Discuss Possible Transfer Social History Tobacco Use Types Packs/Day Years [...] encounter Miscellaneous Notes * Telephone Encounter - Mauri Pizano MD - 11/11/2022 0901 EDT 11/11/2022 Internal Medicine Hospitalist Update: Patient developed crushing CP and has a rising troponin. Transfer to medicine service on hold. OSH provider to call cardiology and potentially MICU. Likely needs emergent rather than urgent transfer as well Mauri Pizano MD Addenda Patient accepted to [facility] MICU PWS documented in this encounter Plan of Treatment Upcoming Encounters Date Type Department Care Team (Late st Contact Info) Description 03/08/2024 9:30 EDT Ancillary Procedure [facility] Cardiology - [address] [place], [place] [id number] 03/08/2024 10:15 EDT Ancillary Procedure [facility] - [address] [place], [place] [id number] 04/05/2024 10:[address] [facility] [address] [place] [address] 04/05/2024 10:[address] [facility] [address] [place] [address] Carlos Ha NP [address] [facility] [address] [place] [address] documented as of this encounter Visit Diagnoses Not on filedocumented in this encounter Care Teams Channel Lip Wetter Relationship Specialty Start Date End Date Bryant Crain MD [address] [place], [place] [phone] PCP - General 05/04/15 05/17/23 Carlos Ha NP 130 [facility] [address] [address] Consulting Clinician Cardiovascular Disease 09/14/21 documented as of this encounter
--- OUTSIDE RECORDS SUMMARY | 2024-01-07 11:14 | XMS_ITS | Encounter Summary ---
Author Organization [facility] Address [address] [place] [address] Care Team Providers Care Supervisor Ditching Name Role Phone Bryant Crain MD Primary Care Provider [phone] Carlos Ha LEAD CARE MANAGER Unavailable [phone] Reason for Visit * Reason Onset Date Comments Appointment Related 02/11/2022 Encounter Details Date Type Department Care Team (Late st Contact Info) Description 02/11/2022 Telephone [facility] Endocrinology [address] [place] [address] Sarika Zamudio, LEAD CARE MANAGER [address] [facility] [address] [place] [address] Appointment Related Social History Tobacco Use Types [...] Yes 11/23/2019 documented as of this encounter Miscellaneous Notes * Telephone Encounter - Lauryn Salinas - 02/11/2022 0841 EDT Spoke with patient about rescheduling her missed appointment on 02/10. Patient not interested in rescheduling at this time, said she would call us back to reschedule. documented in this encounter Plan of Treatment Upcoming Encounters Date Type Department Care Team (Late st Contact Info) Description 03/08/2024 9:30 EDT Ancillary Procedure [facility] Cardiology - [address] [place] [address] 03/08/2024 10:15 EDT Ancillary Procedure [facility] Cardiology - [address] [place] [address] 04/05/2024 10:00 EDT Ancillary Procedure [facility] [address] [place] [address] 04/05/2024 10:00 EDT Office Visit [facility] [address] [place] [address] Carlos Ha NP [address] [place] [phone] documented as of this encounter Visit Diagnoses Not on filedocumented in this encounter Care Teams Supervisor Ditching Relationship Specialty Start Date End Date Bryant Crain MD [address] [place] [address] PCP - General 05/04/15 05/17/23 Carlos Ha NP [address] [place] [phone] Consulting Clinician Cardiovascular Disease 09/14/21 documented as of this encounter
--- OUTSIDE RECORDS SUMMARY | 2024-01-07 11:14 | XMS_ITS | Encounter Summary ---
Author Organization [facility] Address [address] [place] [address] Care Team Providers Care Multilith Operator Name Role Phone Bryant Crain MD Primary Care Provider [phone] Carlos Ha FIRE PREVENTION INSPECTOR Unavailable [phone] Reason for Visit * (Routine/Next Available) - Receiving Office to Obtain Authorization Specialty Diagnoses / Procedures Referred By Charo daniel Referred To Contact Procedures XR OUTSIDE IMAGES CHEST Imaging, External Referral ID Status Reason Start Date Expiration Date Visits Requested Visits Authorized [id number] Receiving Office to Obtain Authorization 11/11/2022 1 1 Encounter Details Date Type Department Care Team (Latest Contact Info) Description 11/10/2022 - 11/10/2022 23:59 EDT Hospital Encounter [facility] Secondary Reads [place] Discharge Disposition: Home or Self Care Social [...] Yes 11/23/2019 documented as of this encounter Medications at Time of Discharge Medication Sig Dispensed Refills Start Date End Date acetaminophen (TYLENOL) 650 mg CR tablet 2 tab(s) orally twice a day, only as needed BD ULTRA-FINE MICRO PEN NEEDLE 32 gauge x 1/4 needle 06/17/2021 blood glucose meterIndications:Typ e 2 diabetes mellitus with hyperglycemia, with long-term current use of insulin ([facility]) by [facility] (non-drug; combo route) route daily. [...] (FREESTYLE VICKY 2 READER) [facility] 1 Device by [facility] (non-drug; combo route) route daily. Dispense one [...] 01/18/2020 lancets/blood glucose strips (ONE TOUCH COMBO [facility]) -to test blood sugar - twice daily [...] into the skin once a week. Sundays02/09/2021 REPATHA SYRINGE 140 mg/mL syringe INJECT 1 SYRINGE SUBCUTANEOUSLY EVERY 2 WEEKS 06/26/2020 UNIFINE PENTIPS 04/19/2019 apixaban (ELIQUIS) 5 mg tablet Take 5 mg by mouth 2 times daily. 11/14/2022 aspirin 81 mg EC tablet Take 81 mg by mouth daily. 12/09/2022 candesartan (ATACAND) 32 mg tablet Take 32 mg by mouth daily. 11/14/2022 empagliflozin (JARDIANCE) 10 mg tablet Take 1 Tablet by mouth daily. 90 Tablet 2 08/05/2021 11/13/2022 mupirocin (BACTROBAN) 2 % ointment APPLY ONE APPLICATION TOPICALLY TO AFFECTED AREA THREE TIMES A DAY FOR 10 DAYS 05/05/2021 11/13/2022 documented as of this encounter Discharge Disposition Disposition Code Departure Means Destination Home or Self Care documented in this encounter Plan of Treatment Upcoming Encounters Date Type Department Care Team (Late st Contact Info) Description 03/08/2024 9:30 EDT Ancillary Procedure [facility] Cardiology - [facility] [place] [address] 03/08/2024 10:15 EDT Ancillary Procedure [facility] Cardiology [place] [address] [place] [address] 04/05/2024 10:00 EDT Ancillary Procedure [facility] Clinic [address] [place] [phone] 04/05/2024 10:00 EDT Office Visit [facility] [address] [place] [address] [phone] Carlos Ha NP [address] [place] [address]-A [address] [place] [address] documented as of this encounter Procedures Procedure Name Priority Date/Time Associated Diagnosis Comments XR OUTSIDE IMAGES CHEST Routine 11/10/2022 8:52 EDT documented in this encounter Results * XR OUTSIDE IMAGES CHEST (11/10/2022 8:52 EDT) Narrative 11/11/2022 8:53 EDT This is a non-reportable exam. External Imaging IMG OTHER IMAGING OR DERABLES documented in this encounter Visit Diagnoses Not on filedocumented in this encounter Care Teams Multilith Operator Relationship Specialty Start Date End Date Bryant Crain MD [address] [place], [place] [phone] PCP - General 05/04/15 05/17/23 Carlos Ha NP [address] [place] [address]A [address] [place] [phone] Consulting Clinician Cardiovascular Disease 09/14/21 documented as of this encounter
--- OUTSIDE RECORDS SUMMARY | 2024-01-07 11:14 | XMS_ITS | Encounter Summary ---
Author Organization [facility] Address [address] [place] [address] Care Team Providers Care Floor Covering Layer Name Role Phone Bryant Crain MD Primary Care Provider [phone] Encounter Details Date Type Department Care Team (Latest Contact Info) Description 08/01/2021 9:55 EST Phlebotomy Only [facility] - Outpatient Phlebotomy Drawing [address] [place] [address] Lab, [facility] Op Phlebotomy Primary hyperparathyroidism ([facility]); Type 2 diabetes mellitus with hyperglycemia, with long-term current use of insulin (HCC-CMS) ([facility]) Social History Tobacco Use Types Packs/Day Years [...] Info) Description 03/08/2024 9:30 EDT Ancillary Procedure [facility] Cardiology [place] [address] 03/08/2024 10:15 EDT Ancillary Procedure [facility] [place] [address] 04/05/2024 10:00 EDT Ancillary Procedure [facility] Clinic [address] [place] [id number] 04/05/2024 10:00 EDT Office Visit [facility] Clinic [address] [place] [address] Carlos Ha NP [address] [place] [address]A [address] [place] [phone] documented as of this encounter Procedures Procedure Name Priority Date/Time Associated Diagnosis Comments VITAMIN D (25,OH) Routine 08/01/2021 10:02 EST Primary hyperparathyroidism ([facility]) PHOSPHORUS Routine 08/01/2021 10:02 EST Primary hyperparathyroidism ([facility]) MAGNESIUM Routine 08/01/2021 10:02 EST Primary hyperparathyroidism ([facility]) VITAMIN B12 Add-On 08/01/2021 10:02 EST Type 2 diabetes mellitus with hyperglycemia, with long-term current use of insulin ([facility]) ([facility]) LIPID PROFILE (INCLUDES CHOLESTEROL, TRIGLYCERIDES, HDL, LDL) Routine 08/01/2021 10:02 EST Type 2 diabetes mellitus with hyperglycemia, with long-term current use of insulin ([facility]) ([facility]) COMPREHENSIVE METABOLIC PANEL (CMP) Routine 08/01/2021 10:02 EST Primary hyperparathyroidism ([facility]) documented in this encounter Results * (ABNORMAL) VITAMIN B12 (08/01/2021 10:02 EST) Vitamin B12 172(L) 211 - 911 pg/mL 08/05/2021 14:46 EST [facility] Blood VENOUS BLOOD / Unknown Venipuncture / Unknown 08/01/2021 10:02 EST 08/01/2021 11:04 EST Narrative [facility] - 08/05/2021 14:46 EST The results of this assay can be falsely elevated due to the consumption of Biotin. Sarika Zamudio NP CHEMISTRY & BLOOD GAS ORDERABLES Performing Organization Address [facility]/ZIP Co de Phone Number [facility] [address] [place] [address] * VITAMIN D (25,OH) (08/01/2021 10:02 EST) 25OH Vitamin D Tot 30 30 - 100 ng/mL 08/01/2021 11:52 EST [facility] Blood VENOUS BLOOD / Unknown Venipuncture / Unknown 08/01/2021 10:02 EST 08/01/2021 11:04 EST Sarika Zamudio NP CHEMISTRY & BLOOD GAS ORDERABLES Performing Organization Address City/[facility]/ZIP Co de Phone Number [facility] [address] [place] [address] * PHOSPHORUS (08/01/2021 10:02 EST) Phosphorus 3.4 2.5 - 4.5 mg/dL 08/01/2021 11:35 EST [facility] Blood VENOUS BLOOD / Unknown Venipuncture / Unknown 08/01/2021 10:02 EST 08/01/2021 11:04 EST Sarika Zamudio NP CHEMISTRY & BLOOD GAS ORDERABLES Performing Organization Address City/[facility]/ZIP Co de Phone Number [facility] [address] [place] [address] * MAGNESIUM (08/01/2021 10:02 EST) Magnesium 1.9 1.7 - 2.8 mg/dL 08/01/2021 11:35 [facility] Blood VENOUS BLOOD / Unknown Venipuncture / Unknown 08/01/2021 10:02 EST 08/01/2021 11:04 EST Sarika Zamudio NP CHEMISTRY & BLOOD GAS ORDERABLES [facility] [address] [place] [address] * LIPID PROFILE (INCLUDES CHOLESTEROL, TRIGLYCERIDES, HDL, LDL) (08/01/2021 10:02 EST) Cholesterol 143 See Note mg/dL 08/01/2021 11:35 [facility] Comment: Acceptable: ?<200 mg/dL Borderline High: 200-239 mg/dL High: ?> or = 240 mg/dL HDL 40 See Note mg/dL 08/01/2021 11:35 [facility] Comment: Low: ? <40 mg/dL Normal: ??40-60 mg/dL High: ?>60 mg/dL LDL, Calculated 65 See Note mg/dL 08/01/2021 11:35 [facility] Comment: Optimal: ? <100 mg/dL Near Optimal: ?100-129 mg/dL Borderline High: 130-159 mg/dL High: ?160-189 mg/dL Very High: ? > or = 190 mg/dL Triglyceride 188 See Note mg/dL 08/01/2021 11:35 [facility] Comment: Normal: ? <150 mg/dL Borderline High: ??150 - 199 mg/dL High: ? 200 - 499 mg/dL Very High: ?> or = 500 mg/dL Chol/HDL Ratio 3.6 See Note 08/01/2021 11:35 [facility] Comment: NOTE: Desirable Ratio = <4.1 Patient At Risk Ratio = >5.0(Males) ?>6.0(Females) Non HDL Cholesterol 103 See Note mg/dL 08/01/2021 11:35 [facility] Comment: Desirable: ?<130 mg/dL Borderline High: ??130-159 mg/dL High: ? 160-189 mg/dL Very High: ?> or = 190 mg/dL Blood VENOUS BLOOD / Unknown Venipuncture / Unknown 08/01/2021 10:02 EST 08/01/2021 11:04 EST Sarika Zamudio NP CHEMISTRY & BLOOD GAS ORDERABLES Performing Organization Address City/State/[facility] Co de Phone Number [facility] [address] [place] [address] * (ABNORMAL) COMPREHENSIVE METABOLIC PANEL (CMP) (08/01/2021 10:02 EST) Sodium 139 136 - 145 mmol/L 08/01/2021 11:35 [facility] Potassium 4.9 3.5 - 5.0 mmol/L 08/01/2021 11:35 [facility] Chloride 105 96 - 110 mmol/L 08/01/2021 11:35 [facility] CO2 Total 25 22 - 32 mmol/L 08/01/2021 11:35 [facility] Glucose 131(H) 70 - 100 mg/dL 08/01/2021 11:35 [facility] BUN 24 10 - 26 mg/dL 08/01/2021 11:35 [facility] Creatinine 0.82 0.52 - 1.04 mg/dL 08/01/2021 11:35 [facility] eGFR 73 >60 mL/min/1.7 3m2 08/01/2021 11:35 [facility] Total Protein 6.7 6.3 - 8.2 g/dL 08/01/2021 11:35 [facility] Albumin 4.2 3.4 - 4.9 g/dL 08/01/2021 11:35 [facility] Alkaline Phosphatase 51 38 - 126 U/L 08/01/2021 11:35 [facility] AST 30 15 - 46 U/L 08/01/2021 11:35 [facility] ALT 20 <35 U/L 08/01/2021 11:35 [facility] Bilirubin, Total 0.4 <1.4 mg/dL 08/01/19 11:35 [facility] Calcium 10.7(H) 8.5 - 10.5 mg/dL 08/01/2021 11:35 [facility] Albumin/Globulin Ratio 1.7 1.0 - 2.5 08/01/2021 11:35 [facility] Anion Gap 9 5 - 14 08/01/2021 11:35 [facility] Blood VENOUS BLOOD / Unknown Venipuncture / Unknown 08/01/2021 10:02 EST 08/01/2021 11:04 EST Sarika Zamudio FACS TEACHER CHEMISTRY & BLOOD GAS ORDERABLES Performing Organization Address City/State/[facility] Co de Phone Number [facility] [address] [place] [address] documented in this encounter Visit Diagnoses Diagnosis Primary hyperparathyroidism (HCC-CMS) Primary hyperparathyroidism Type 2 diabetes mellitus with hyperglycemia, with long-term current use of insulin ([facility]) documented in this encounter Care Teams Floor Covering Layer Relationship Specialty Start Date End Date Bryant Crain MD [address] [place] [address] PCP - General 05/04/15 05/17/23 documented as of this encounter
--- OUTSIDE RECORDS SUMMARY | 2024-01-07 11:14 | XMS_ITS | Encounter Summary ---
Author Organization [facility] Address [address] [place] [address] Care Team Providers Care Business Services Officer Name Role Phone Bryant Crain MD Primary Care Provider [phone] Encounter Details Date Type Department Care Team (Late st Contact Info) Description 11/04/2020 Results Only [facility] - [facility] Endocrinology [address] [place] [address] Sarika Zamudio, RETAIL RECEIVING CLERK [address] [facility]-[address] [place] [address] Social History Tobacco Use Types Packs/Day Years [...] 03/08/2024 9:30 EDT Ancillary Procedure [facility] Cardiology - [address] [place] [phone] 03/08/2024 10:15 EDT Ancillary Procedure [facility] Cardiology - [place], [place] [phone] 04/05/2024 10:00 EDT Ancillary Procedure [facility] [address] [place] [id number] 04/05/2024 10:00 EDT Office Visit [facility] [address] [place] [address] Carlos Ha NP [address] [place] [address]-[address] [place] [phone] documented as of this encounter Procedures Procedure Name Priority Date/Time Associated Diagnosis Comments URINE COLLECTION TIME - [facility] Routine 11/04/2020 8:15 EDT URINE COLLECTION TIME - [facility] Routine 11/04/2020 8:15 EDT URINE INFORMATION Routine 11/04/2020 8:1 5 EDT URINE INFORMATION Routine 11/04/2020 8:1 5 EDT CALCIUM, URINE 24HR Routine 11/04/2020 8 :15 EDT CREATININE, URINE 24HR Routine 11/04/2020 8:15 EDT documented in this encounter Results * URINE INFORMATION (11/04/2020 8:15 EDT) Urine Volume 750 mL 11/04/2020 10:51 EDT [facility] 11/04/2020 8:15 EDT 11/04/2020 10:23 EDT Sarika Zamudio RETAIL RECEIVING CLERK URINALYSIS ORDERA BLES Performing Organization Address [facility]/ZIP Co de Phone Number [facility] [address] [place] [address] * URINE COLLECTION TIME - CV (11/04/2020 8:15 EDT) URINE COLLECTION TIME - CV 24 HOURS 11/04/2020 10:51 EDT [facility] 11/04/2020 8:15 EDT 11/04/2020 10:23 EDT Sarika Zamudio RETAIL RECEIVING CLERK HEMATOLOGY & PF4 ORDERABLES Performing Organization Address [facility] Co de Phone Number [facility] [address] [place] [address] * CALCIUM, URINE 24HR (11/04/2020 8:15 EDT) Pathologist [facility] Calcium, Urine 24 hr 230 42 - 353 mg/24hrs 11/04/2020 11:17 EDT [facility] 11/04/2020 8:15 EDT 11/04/2020 10:23 EDT Sarika Zamudio RETAIL RECEIVING CLERK URINALYSIS ORDERA BLES Performing Organization Address [facility]/ZIP Co de Phone Number [facility] [address] [place] [address] * URINE INFORMATION (11/04/2020 8:15 EDT) URINE TOTAL VOLUME - [facility] 750 mL 11/04/2020 10:52 EDT [facility] 11/04/2020 8:15 EDT 11/04/2020 10:23 EDT Sarika Zamudio RETAIL RECEIVING CLERK URINALYSIS ORDERA BLES Performing Organization Address [facility]/ZIP Co de Phone Number [facility] [address] [place] [address] * URINE COLLECTION TIME - CV (11/04/2020 8:15 EDT) URINE COLLECTION TIME - [facility] 24 HOURS 11/04/2020 10:52 EDT [facility] 11/04/2020 8:15 EDT 11/04/2020 10:23 EDT Sarika Zamudio NP HEMATOLOGY & PF4 ORDERABLES Performing Organization Address City/[facility] Co de Phone Number [facility] [address] [place] [address] * CREATININE, URINE 24HR (11/04/2020 8:15 EDT) Creatinine, Urine 24 hr 0.94 0.6 - 2.49 g/24hr 11/04/2020 11:17 EDT [facility] 11/04/2020 8:15 EDT 11/04/2020 10:23 EDT Sarika Zamudio NP URINALYSIS ORDERA BLES Performing Organization Address City/[facility] Co de Phone Number [facility] [address] [place] [address] documented in this encounter Visit Diagnoses Not on filedocumented in this encounter Care Teams Business Services Officer Relationship Specialty Start Date End Date Bryant Crain MD [address] [place] [address] PCP - General 05/04/15 05/17/23 documented as of this encounter
--- OUTSIDE RECORDS SUMMARY | 2024-01-07 11:14 | XMS_ITS | Encounter Summary ---
Author Organization [facility] Address [address] [place] [address] Care Team Providers Care Shotblast Equipment Operator Name Role Phone Bryant Crain MD Primary Care Provider [phone] Carlos Ha NECKTIE TURNER Unavailable [phone] Reason for Visit * Reason Comments Other Encounter Details Date Type Department Care Team (Late st Contact Info) Description 12/26/2021 Refill [facility] Endocrinology [address] [place] [address] Sarika Zamudio, NECKTIE TURNER [address] [facility]-[address] [place] [address] Other Social History Tobacco Use Types Packs/Day Years [...] Yes 11/23/2019 documented as of this encounter Ordered Prescriptions Prescription Sig Dispensed Refills Start Date End Da te FREESTYLE VICKY 2 SENSOR kit USE 1 SENSOR EVERY 14 DAYS 6 Kit 3 12/29/2021 documented in this encounter Miscellaneous Notes * Telephone Encounter - Cammie Claudio RN - 12/29/2021 0832 EDT Prescription sent to pharmacy per Sarika Zamudio's orders. documented in this encounter Plan of Treatment Upcoming Encounters Date Type Department Care Team (Late st Contact Info) Description 03/08/2024 9:30 EDT Ancillary Procedure [facility] Cardiology - [address] [place], [place] [phone] 03/08/2024 10:15 EDT Ancillary Procedure [facility] Cardiology - [address] [place] [address] 04/05/2024 10:00 EDT Ancillary Procedure [facility] Cardiology Clinic [address] [place] [phone] 04/05/2024 10:00 EDT Office Visit [facility] Cardiology Clinic [address] [place] [address] Carlos Ha NP [address] [place] [address]A [address] [place] [phone] documented as of this encounter Visit Diagnoses Not on filedocumented in this encounter Discontinued Medications Medication Sig Discontinue Reason Start Date End Da te flash glucose sensor (FREESTYLE VICKY 2 SENSOR) kit 1 Units by misc (non-drug; combo route) route every 14 days. 10/29/2020 12/29/2021 documented as of this encounter Care Teams Shotblast Equipment Operator Relationship Specialty Start Date End Date Bryant Crain MD [address] [place], [place] [phone] PCP - General 05/04/15 05/17/23 Carlos Ha NP [address] [place] [address] [address] [place] [phone] Consulting Clinician Cardiovascular Disease 09/14/21 documented as of this encounter
--- OUTSIDE RECORDS SUMMARY | 2024-01-07 11:14 | XMS_ITS | Encounter Summary ---
Author Organization [facility] Address [address] [place] [address] Care Team Providers Care Senior Mainframe Programmer Analyst Name Role Phone Bryant Crain MD Primary Care Provider [phone] Carlos Ha BRIDGE BUILDER Unavailable [phone] Reason for Visit * Reason Onset Date Comments Discuss Possible Transfer 11/11/2022 Encounter Details Date Type Department Care Team (Late st Contact Info) Description 11/11/2022 Telephone [facility] General Medicine Unit [address] [place] [address] Mauri Pizano MD [address] [phone] Discuss Possible Transfer Social History [...] Encounter - Mauri Pizano MD - 11/11/2022 0822 EDT 11/11/2022 Internal Medicine Hospitalist [facility] 72 yo female 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 2 units PRBCs given EGD by surgery with clots in stomach and esophagitis. No source bleed. Hgb dropped to 7.4. Hematemesis this morning. Additional 2units PRBCs given. Hgb 9.4. Also recieved 1 unit FFP, octreotide, and IV pantoprazole. Hemodynamically stable Troponin 104 (chronically elevated) with planned outpatient stress 11/10 Mauri Pizano MD documented in this encounter Plan of Treatment Upcoming Encounters Date Type Department Care Team (Late st Contact Info) Description 03/08/2024 9:30 EDT Ancillary Procedure [facility] Cardiology - [facility] [place] [address] 03/08/2024 10:15 EDT Ancillary Procedure [facility] Cardiology [place] [address] 04/05/2024 10:00 EDT Ancillary Procedure [facility] Card[facility] Clinic [address] [place] [address] 04/05/2024 10:00 EDT Office Visit [facility] Card[facility] Clinic [address] [place], [place] [address] Carlos Ha NP [address] [facility] [address] [place] [phone] documented as of this encounter Visit Diagnoses Not on filedocumented in this encounter Care Teams Senior Mainframe Programmer Analyst Relationship Specialty Start Date End Date Bryant Crain MD [address] [place], [place] [phone] PCP - General 05/04/15 05/17/23 Carlos Ha NP [address] [facility] [address] [place] [phone] Consulting Clinician Cardiovascular Disease 09/14/21 documented as of this encounter
--- OUTSIDE RECORDS SUMMARY | 2024-01-07 11:14 | XMS_ITS | Encounter Summary ---
Author Organization [facility] Address [address] [place] [address] Care Team Providers Care Chemical Process Equipment Operator Name Role Phone Bryant Crain MD Primary Care Provider Encounter Details Date Type Department Care Team (Late st Contact Info) Description 11/08/2020 Orders Only [facility] [address] [place] [id number] Sabrina Herring MA Cryptogenic stroke (HCC-CMS) (Primary [...] Info) Description 03/08/2024 9:30 EDT Ancillary Procedure [facility] - [address] [place] [address] 03/08/2024 10:15 EDT Ancillary Procedure [facility] - [facility] [address] [place] [address] 04/05/2024 10:00 EDT Ancillary Procedure [facility] [address] [place] [address] [id number] 04/05/2024 10:00 EDT Office Visit [facility] [address] [place], [place] [address] Carlos Ha NP [address] [facility] [address] [place] [address] documented as of this encounter Procedures Procedure Name Priority Date/Time Associated Diagnosis Comments CARDIAC IMPLANT CHECK - REMOTE MONITOR Routine 11/15/2020 9:28 EDT Cryptogenic stroke (HCC-CMS) documented in this encounter Results * CARDIAC IMPLANT CHECK - REMOTE - LOOP RECORDER (ILR) (11/15/2020 9:28 EDT) Anatomical Region Laterality Modality Device Narrative 11/15/2020 9:29 EDT Remote transmission of ILR reviewed. Good battery status. No arrhythmias, no symptoms. See scanned documents for full details. Procedure Note Orquidea Bowers APRN - 11/15/2020 Remote transmission of ILR reviewed. Good battery status. No arrhythmias,no symptoms. See scanned documents for full details. Carlos Ha NP CV IMPLANTABLE CARDI AC DEVICE documented in this encounter Visit Diagnoses Diagnosis Cryptogenic stroke (HCC-CMS)- Primary Unspecified cerebral artery occlusion with cerebral infarction documented in this encounter Care Teams Chemical Process Equipment Operator Relationship Specialty Start Date End Date Bryant Crain MD [address] [place], [place] [phone] PCP - General 05/04/15 05/17/23 documented as of this encounter
--- OUTSIDE RECORDS SUMMARY | 2024-01-07 11:14 | XMS_ITS | Encounter Summary ---
Author Organization [facility] Address [address] [place] [address] Care Team Providers Care Manager Willow Name Role Phone Bryant Crain MD Primary Care Provider [phone] Reason for Visit * Reason Comments Follow-up Pacemaker/Device Check Low Battery Encounter Details Date Type Department Care Team (Latest Contact Info) Description 03/14/2021 9:00 EDT Office Visit [facility] [address] [place] [id number] Carlos Ha NP 130 [facility]- [address] [place] [phone] Dilated cardiomyopathy (HCC-CMS) (Primary Dx); Essential hypertension; Mixed hyperlipidemia; Paroxysmal atrial fibrillation (HCC-CMS) Social History Tobacco Use Types Packs/Day [...] Sign Reading Time Taken Comments Blood Pressure 130/76 03/14/2021 0901 EDT Pulse 73 03/14/2021 0901 EDT Temperature - - Respiratory Rate - - Oxygen Saturation 96% 03/14/2021 0901 EDT Inhaled Oxygen Concentration - - Weight 74.4 kg (164 lb) 03/14/2021 09 EDT Height 162.6 cm (5' 4) 03/14/2021 09 EDT Body Mass Index 28.15 03/14/2021 0901 EDT documented in this encounter Functional Status [...] this encounter Progress Notes * Carlos Ha, GAS USAGE METER CLERK - 03/14/2021 09 EDT CC: Follow-up and Pacemaker/Device Check (Low Battery) HPI: This is a pleasant 70-year-old female who is here for a follow-up [...] of breath, palpitations, orthopnea, PND, or syncope. PMH: Past Medical History: Diagnosis Date ??? Cerebrovascular accident (CVA) ([facility]) 06/01/2019 ??? Diabetes mellitus, type 2 ([facility]) 01/26/2011 On metformin On metformin ??? Essential hypertension 06/01/2019 ??? Mixed hyperlipidemia 06/05/2019 ??? Nonrheumatic aortic valve stenosis 06/01/2019 ??? Paroxysmal atrial fibrillation ([facility]) 06/01/2019 SH/FH: reviewed and updated MEDICATIONS: Medications Prior to Today's Visit Medication Sig ??? acetaminophen (TYLENOL 8 HOUR) 650 mg CR tablet 2 tab(s) orally twice a day, only as needed ??? apixaban (ELIQUIS) 5 mg tablet Take 5 mg by mouth 2 times daily. ??? aspirin 81 mg EC tablet Take 81 mg by mouth daily. ??? blood glucose meter by [facility] (non-drug; combo route) route daily. One touch verio meter or best covered by insurance. ??? candesartan (ATACAND) 32 mg tablet Take 32 mg by mouth daily. ??? cetirizine (ZYRTEC) 10 mg tablet Take 10 mg by mouth daily. ??? flash glucose scanning reader (FREESTYLE VICKY 2 READER) misc 1 Device by [facility] (non-drug; comboroute) route daily. Dispense one reader ??? flash glucose sensor (FREESTYLE VICKY 2 SENSOR) kit 1 Units by [facility] (non- drug; combo route) route every 14 days. ??? gabapentin (NEURONTIN) 300 mg capsule Take 600 mg by mouth 2 times daily. ??? HUMALOG KWIKPEN INSULIN 100 unit/mL injectable pen 100-150 1 unit, 150-200 2 units, 200-250 3 units, 250-300 4 units ??? insulin glargine (LANTUS SOLOSTAR U-100 INSULIN) 100 unit/mL (3 mL) injection pen Inject 38 Units into the skin daily. ??? lactobacillus combination no.8 3 billion cell capsule Take by mouth. ??? lancets/blood glucose strips ([facility]) -to test blood sugar - twice daily ??? magnesium oxide (MAG-OX) 400 mg (241.3 mg magnesium) tablet Take 400 mg by mouth daily. ??? metFORMIN (GLUCOPHAGE-XR) 750 mg ER tablet Take 750 mg by mouth 2 times daily. ??? ONETOUCH [...] Other reaction(s): Anaphylaxsis ( TOLERATED WITH PREMEDS 11/15/17) ??? Atenolol Other (See Comments) ??? Cephalexin Other reaction(s): Rash ??? Ciprofloxacin ??? Farxiga [Dapagliflozin] Gi side effects ??? Hydroxychloroquine Other reaction(s): Unknown ??? Iodine And Iodide Containing Products Hives ??? Lisinopril Other reaction(s): Unknown ??? Losartan Other reaction(s): Unknown ??? Oxycodone-Acetaminophen Other reaction(s): Hallucinations ??? Propoxyphene N-Acetaminophen Other reaction(s): Hallucinations ??? Puhyuts-Rdc-Vsg Reductase Inhibitors ??? Trulicity [Dulaglutide] Gi Side effect ROS: The rest of the pertinent 10 point review of systems is negative other than mentioned in the HPI PHYSICAL EXAM: Vitals: 03/14/21 0901 BP: 130/76 BP Cuff Location: Left arm BP Patient Position: Sitting BP Cuff Sizes: Adult, regular Pulse: 73 SpO2: 96% Weight: 74.4 kg (164 lb) Height: 162.6 cm (64) GENERAL APPEARANCE: [...] intraventricular conduction defect. ECHOCARDIOGRAM 12/18/2020 (completed at [facility]) LV is normal size and function. EF 55% with no segmental wall motion abnormality. There is severe concentric LVH. RV normal size and function. Left atrium and right atrium normal size. There is no significant valvular disease. Lab Results Component Value Date HGB 13.4 03/15/2018 PLT 352 03/15/2018 CHOL 255 (H) 06/05/2019 HDL 48 06/05/2019 LDL 156 (H) 06/05/2019 TRIG 256 06/05/2019 HGBA1C 7.0 (A) 03/06/2021 [facility] [place]R Visit Ski Top Trimmer: [employer] Device Type: Implantable loop recorder Service: Office Visit Implant Date: Indication: Cryptogenic CVA Battery Longevity: EOS Symptom: 0 Tachycardia: 0 Bradycardia: 0 Pause: 0 AF: 0 ASSESSMENT: Problem List Items Addressed This Visit Cardiac/Vasculature Essential hypertension Well-controlled on current medical management Paroxysmal atrial fibrillation (HCC-CMS) She is appropriately anticoagulated for stroke risk reduction. She has had no further episodes of atrial fibrillation noted on her ILR. Good device has reached EOS. We will plan to set her up for removal of the device. Mixed hyperlipidemia I do not have an updated lipid profile. She is on Repatha. Target LDL less than 70. She will followup with her PCP. Dilated cardiomyopathy (HCC-CMS) - Primary Improved EF on recent echo (55%). I spent a total of 30 minutes on the date of this encounter which includes time with the patient, time reviewing medical records and laboratory results, time updating the chart information, and time composing this note. No procedures were performed at the time of the visit. Carlos Ha APRN documented in this encounter Miscellaneous Notes * Assessment & Plan Note - Carlos Ha APRN - 03/14/2021 0926 EDTAssociated Problem(s): Paroxysmal atrial fibrillation (HCC-CMS) She is appropriately anticoagulated for stroke risk reduction. She has had no further episodes of atrial fibrillation noted on her ILR. Good device has reached EOS. We will plan to set her up for removal of the device. * Assessment & Plan Note - Carlos Ha APRN - 03/14/2021 0926 EDTAssociated Problem(s): Mixed hyperlipidemia I do not have an updated lipid profile. She is on Repatha. Target LDL less than 70. She will followup with her PCP. * Assessment & Plan Note - Carlos Ha APRN - 03/14/2021 0925 EDTAssociated Problem(s): Essential hypertension Well-controlled on current medical management * Assessment & Plan Note - Carlos Ha APRN - 03/14/2021 0922 EDTAssociated Problem(s): Dilated cardiomyopathy (HCC-CMS) Improved EF on recent echo (55%). documented in this encounter Plan of Treatment Upcoming Encounters Date Type Department Care Team (Late st Contact Info) Description 03/08/2024 9:30 EDT Ancillary Procedure [facility] - [facility] [place] [address] 03/08/2024 10:15 EDT Ancillary Procedure [facility] - [facility] [place] [address] 04/05/2024 10:00 EDT Ancillary Procedure [facility] [address] [place] [id number] 04/05/2024 10:00 EDT Office Visit [facility] [address] [place] [id number] Carlos Ha, INSURANCE BUSINESS ANALYST [address] [place] [address] [place] [phone] documented as of this encounter Visit Diagnoses Diagnosis Dilated cardiomyopathy (HCC-CMS)- Primary Other primary cardiomyopathies Essential hypertension Unspecified essential hypertension Mixed hyperlipidemia Paroxysmal atrial fibrillation (HCC-CMS) Atrial fibrillation documented in this encounter Care Teams Manager Willow Relationship Specialty Start Date End Date Bryant Crain MD [address] [place] [address] PCP - General 05/04/15 05/17/23 documented as of this encounter
--- OUTSIDE RECORDS SUMMARY | 2024-01-07 11:14 | XMS_ITS | Encounter Summary ---
Author Organization [facility] Address [address] [place] [address] Care Team Providers Care Concrete Pile Driver Operator Name Role Phone Bryant Crain MD Primary Care Provider [phone] Reason for Visit * Reason Comments Diabetes Encounter Details Date Type Department Care Team (Late st Contact Info) Description 08/05/2021 13:00 EST Office Visit [facility] Endocr[facility]ology [address] [place] [address] Sarika Zamudio, ENDOSCOPY TECHNICIAN 130 [facility]- [address] [place] [phone] Type 2 diabetes mellitus with hyperglycemia, with long-term current use of insulin ([facility]) ([facility]) (Primary Dx); Stage 3b chronic kidney disease (HCC); Hypercalcemia; Essential hypertension; Mixed hyperlipidemia; 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 ([facility]) (HCC) Social History Tobacco Use Types Packs/Day Years [...] Sign Reading Time Taken Comments Blood Pressure 138/76 08/05/2021 1300 EST Pulse 80 08/05/2021 1300 EST Temperature - - Respiratory Rate 16 08/05/2021 1300 EST Oxygen Saturation - - Inhaled Oxygen Concentration - - Weight 73.5 kg (162 lb) 08/05/2021 1300 EST Height 162.6 cm (5' 4) 08/05/2021 1300 EST Body Mass Index 27.81 08/05/2021 1300 EST documented in this encounter Functional Status [...] * Patient Instructions* Sarika Zamudio APRN - 08/05/2021 13:00 EST A1C 6.3 Congratulated on changes!! If able, start jardiance 10 mg daily. With this will lower lantus 25 units daily. Discussed staying hydrated and good bathroom hygiene with this. If not starting jardiance, Increase lantus 31 units daily. Continue ozempic 1 mg weekly, metformin XR 750 mg twice daily and humalog SS as above. Continue with lo CGM, swiping 4-5X/day. Encouraged continuing to stay hydrated daily, balanced meals and activity as able. Follow-up in 2-3 months pending. Call with lows <70 persistently or elevations >200. Start vitamin D 1000 units daily. documented in this encounter Ordered Prescriptions Prescription Sig Dispensed Refills Start Date End Da te empagliflozin (JARDIANCE) 10 mg tablet Take 1 Tablet by mouth daily. 90 Tablet 2 08/05/2021 11/13/2022 documented in this encounter Progress Notes * Heidi Moore, JALEN - 08/05/2021 1615 EST DM and hyperpara Had a1c done this am 6.3 at [facility] Lab Results Component Value Date UABCR 375.4 07/10/2020 HGBA1C 7.0 (A) 03/06/2021 * MargotsherylSairka, JUSTIN - 08/05/2021 1300 EST Reason for Visit: DM f/up PCP: Dr. Crain OTHER PROVIDERS: Carlos Ha NP cardiology Joanna Hart is a 71 y.o. female who presented to the clinic for a follow-up in [facility], with a history of DM for 14 yrs. Hx of HTN, PAF, HLT, cardiomyopathy, CVA X2 2019, hypomag, hypercalcemia. She lives with her at home. Goes swimming daily to do exercises. Currently working with neurology for w/up on possible parkinsons diagnosis. Random BG in clinic 246. Just had lunch sandwich. Has lowered her lantus about 2 weeks ago. Not having as many lows with this changes. [facility] DM: unsure if father had DM 4 of her siblings have [facility] Recent A1C: 6.3 (07/2021) 7 (02/2021) 6.9 (11/2020) 7.1 (09/2020) 8.4 (06/2020) Diabetic Medications: ozempic 1 mg weekly lantus 30 units AM Metformin XR 750 mg twice daily. humalog SS for meals: 100-150 2 units, 150-200 4 units 200-250 6 units 250-300 8 units Farxiga and trulicity/victoza intolerant-gave her abdominal pain. Current monitoring regimen: Frequency of monitoring? : Lo 2 CGM Fasting range: Preprandial range: Postprandial range: Any episodes of hypoglycemia? no Cause of hypoglycemia? Nutrition Daily Recall: Breakfast: eggs w/ cheese/peppers/onions, coffee Lunch: half sandwich WW w/ cold cuts/cheese/lettuce/tomato, salad typically Dinner: protein: chicken/steak/meatloaf Vegetable: salad, green beans, corn, broccoli, carrots starch: potato, bread, rice Snacks: popcorn, cheese/crackers, peanuts *will have more snacks after dinner/evening Beverages: water >60 oz/day, no etoh Exercise: swimming when able. gardening Diabetes Related Problems Eye exam current (within one year): UTD, sees clinic in [place] Last dental exam: overdue. Will schedule. CVD,PVD,CAD: HTN, HLD,CVA Statin: repatha injections, controlled 2021. Aspirin: yes ACEI/ARB: candesartan 32 mg Prior visit with inbound telemarketer: yes, JALEN Hyman. Foot care: podiatry Comorbidities: Retinopathy: no Nephropathy/Kidney function: Lab Results Component Value Date/Time CALCGFR 73 08/01/2021 10:02 MCR up to date? 375 (06/2020) Neuropathy: no sensation in BL feet/legs Stable: yes Review of Systems Constitutional: Negative. Eyes: Negative. Endocrine: Negative. Neurological: Positive for numbness (BLLE). Physical Exam Constitutional: Appearance: Normal appearance. HENT: Head: Normocephalic and atraumatic. Skin: General: Skin is warm and dry. Neurological: Mental Status: She is alert and oriented to person, place, and time. Psychiatric: Mood and Affect: Mood normal. Behavior: Behavior normal. Thought Content: Thought content normal. CGM INTERPRETATION Type of CGM: OpenNews 2 07/23-08/05/2021 Type of DM: II Diabetic Medications: lantus Metformin ozmepic humalog Indication for monitoring: Hyper/hypoglycemia, insulin dosing Report Interpretation: Average glucose 142 mg/dL, standard deviation 27.5 TIR 82%, TAR 16%, TBR 2% Overall doing well, elevated with bfast daily. Nocturnal glucose control: yes Post-prandial glucose excursions: bfast and sometimes dinner Hypoglycemia incidence: no Other (exercise/activity): gardening Hemoglobin A1c, POC Date Value Ref Range Status 03/06/2021 7.0 (A) 5.7 % Final No results found for: MICROALBUR, [id number] Lab Results Component Value Date NA 139 08/01/2021 K 4.9 08/01/2021 CL 105 08/01/2021 CO2 25 08/01/2021 BUN 24 08/01/2021 GLU 199 (H) 11/23/2019 CA 11.2 (H) 11/23/2019 Joanna Hart is a 71 y.o. female who presented to the clinic for a follow-up in [facility], with a history of DM for 14 yrs. 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 If able, start jardiance 10 mg daily. With this will lower lantus 25 units daily. Discussed staying hydrated and good bathroom hygiene with this. If not starting jardiance, Increase lantus 31 units daily. Continue ozempic 1 mg weekly, metformin XR 750 mg twice daily and humalog SS as above. Continue with lo CGM, swiping 4-5X/day. Encouraged continuing to stay hydrated daily, balanced meals and activity as able. Follow-up in 2-3 months pending. Call with lows <70 persistently or elevations >200. MALB today. Given [facility] HAP program info to see if qualifies. Relevant Medications empagliflozin (JARDIANCE) 10 mg tablet Other Relevant Orders VITAMIN B12 URINE KFHVDND-NO-FATHEFNDBY RATIO (ACR) Genitourinary/Reproductive Stage 3b chronic kidney disease (HCC) Stable. Hypercalcemia Stable. Cardiac/Vasculature Essential hypertension BP at goal. Mixed hyperlipidemia LDL at goal Patient Goals: A1C <7.5% Exercise: 150 minutes of CV exercise/week. I spent a total of 35 minutes on the date of this encounter meeting with the patient and reviewing documentation/coordinating care as described in the above note. No procedures were performed at the time of the visit. Time does not include reviewing CGM data. documented in this encounter Miscellaneous Notes * Assessment & Plan Note - Sarika Zamudio APRN - 08/05/2021 1343 EST Associated Problem(s): Mixed hyperlipidemia LDL at goal * Assessment & Plan Note - Sarika Zamudio APRN - 08/05/2021 1343 EST Associated Problem(s): Essential hypertension BP at goal. * Assessment & Plan Note - Sarika Zamudio, DECK OFFICER - 08/05/2021 1342 EST Associated Problem(s): Hypercalcemia Josesito. * Assessment & Plan Note - Sarika Zamudio APRN - 08/05/2021 1342 EST Associated Problem(s): Stage 3b chronic kidney disease ([facility]) Josesito. * Assessment & Plan Note - Sarika Zamudio, JUSTIN - 08/05/2021 1320 EST Associated Problem(s): Diabetes mellitus, type 2 ([facility]) Controlled A1C 6.3 Congratulated on changes!! If able, start jardiance 10 mg daily. With this will lower lantus 25 units daily. Discussed staying hydrated and good bathroom hygiene with this. If not starting jardiance, Increase lantus 31 units daily. Continue ozempic 1 mg weekly, metformin XR 750 mg twice daily and humalog SS as above. Continue with lo CGM, swiping 4-5X/day. Encouraged continuing to stay hydrated daily, balanced meals and activity as able. Follow-up in 2-3 months pending. Call with lows <70 persistently or elevations >200. MALB today. Given [facility] HAP program info to see if qualifies. documented in this encounter Plan of Treatment Upcoming Encounters Date Type Department Care Team (Late st Contact Info) Description 03/08/2024 9:30 EDT Ancillary Procedure [facility] Cardiology - [address] [place] [address] 03/08/2024 10:15 EDT Ancillary Procedure [facility] Cardiology - [address] [place] [address] 04/05/2024 10:00 EDT Ancillary Procedure [facility] [address] [place] [address] 04/05/2024 10:00 EDT Office Visit [facility] [address] [place] [address] Carlos Ha NP 130 [facility] [address] [place] [address] documented as of this encounter Procedures Procedure Name Priority Date/Time Associated Diagnosis Comments URINE JQYFALN-SN-[id number] E RATIO (ACR) Routine 08/05/2021 15:07 EST Type 2 diabetes mellitus with hyperglycemia, with long-term current use of insulin ([facility]) ([facility]) HEMOGLOBIN A1C Routine 08/05/2021 documented in this encounter Results * (ABNORMAL) URINE [id number]-[id number] RATIO (ACR) (08/05/2021 15:07 EST) Albumin, Urine 47.2 See Note mg/dL 2021 18:46 [facility] Comment: NOTE: Reference range not established Creatinine, Urine 102.8 See Note mg/dL 08/05/2021 18:46 [facility] Comment: NOTE: Reference range not established Lab Urine Albumin to Creatinine Ratio 459(H) <30 ??g/mg Creatinine 08/05/2021 18:46 [facility] Comment: Urine Albumin/Creatinine Ratio: Normal: <30 ug/mg Creatinine Moderately increased albuminuria: 30-300 ug/mg Creatinine Severley increased albuminuria: >300 ug/mg Creatinine Urine URINE SPECIMEN COLLECTION, CLEAN CATCH / Unknown Urine Collect / Unknown 08/05/2021 15:07 EST 08/05/2021 15:07 EST Sarika Zamudio NP CHEMISTRY & BLOOD GAS ORDERABLES [facility] [address] [place] [address] * HEMOGLOBIN A1C (08/05/2021) Hemoglobin A1C, External 6.8 1 Est Avg Glucose, External 1 Blood VENOUS BLOOD / Unknown 08/05/2021 Historical Provider MD CHEMISTRY & BLOOD GAS ORDERABLES 1 * (ABNORMAL) VITAMIN B12 (08/01/2021 10:02 EST) Vitamin B12 172(L) 211 - 911 pg/mL 08/05/2021 14:[address] [facility] Blood VENOUS BLOOD / Unknown Venipuncture / Unknown 08/01/2021 10:02 EST 08/01/2021 11:[address] [facility] - 08/05/2021 14:46 EST The results of this assay can be falsely elevated due to the consumption of Biotin. Sarika Zamudio NP CHEMISTRY & BLOOD GAS ORDERABLES 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 Medication Sig Dispensed Refills Start Date End Date BD ULTRA-FINE MICRO PEN NEEDLE 32 gauge x 1/4 needle 06/17/2021 methylPREDNISolone (MEDROL DOSEPACK) 4 mg tablet 08/04/2021 09/16/2021 mupirocin (BACTROBAN) 2 % ointment APPLY ONE APPLICATION TOPICALLY TO AFFECTED AREA THREE TIMES A DAY FOR 10 DAYS 05/05/2021 11/13/2022 added in this encounter Care Teams Concrete Pile Driver Operator Relationship Specialty Start Date End Date Bryant Crain MD [address] [place] [address] PCP - General 05/04/15 05/17/23 documented as of this encounter
--- OUTSIDE RECORDS SUMMARY | 2024-01-07 11:14 | XMS_ITS | Encounter Summary ---
Author Organization [facility] Address [address] [place] [address] Care Team Providers Care Sound Engineer Name Role Phone Bryant Crain MD Primary Care Provider [phone] Reason for Visit * Reason Comments Diabetes Encounter Details Date Type Department Care Team (Late st Contact Info) Description 03/06/2021 10:00 EDT Office Visit [facility] Endocrinology [address] [place] [address] Sarika Zamudio, PACKING ROOM INSPECTOR 130 [facility] [place]- [address] [place] [phone] Type 2 diabetes mellitus with hyperglycemia, with long-term current use of insulin ([facility]) (Primary Dx); 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 (HCC-CMS); Mixed hyperlipidemia; Essential hypertension Social History Tobacco Use Types [...] Sign Reading Time Taken Comments Blood Pressure 128/74 03/06/2021 1030 EDT Pulse 60 03/06/2021 1008 EDT Temperature - - Respiratory Rate 16 03/06/2021 1008 EDT Oxygen Saturation - - Inhaled Oxygen Concentration - - Weight 76.2 kg (168 lb) 03/06/2021 1008 EDT Height 162.6 cm (5' 4) 03/06/2021 1008 EDT Body Mass Index 28.84 03/06/2021 1008 EDT documented in this encounter Functional Status [...] * Patient Instructions* Sarika Zamudio APRN - 03/06/2021 10:00 EDT A1C 7 Continue current regimen: ozempic 1 mg weekly, lantus 36 units AM, Metformin XR 750 mg twice daily, humalog SS for meals: 100-150 2 units, 150-200 4 units 200-250 6 units 250-300 8 units Encouraged to take the humalog 10-15 minutes before breakfast AND dinner, follow the sliding scale. Continue with Lo CGM. Call with concerns of lows <70 consistently or >200. Follow-up in 3 months. documented in this encounter Progress Notes * Heidi Moore RN - 03/06/2021 1000 EDT Lab Results Component Value Date UABCR 375.4 07/10/2020 HGBA1C 6.9 (A) 12/04/2020 Glucose-167 * Sarika Zamudio APRN - 03/06/2021 1000 EDT Reason for Visit: DM f/up PCP: Dr. Crain OTHER PROVIDERS: Carlos Ha NP cardiology Joanna Hart is a 70 y.o. female who presented to the clinic for a follow-up in [facility], with a history of DM for 14 yrs. Hx of HTN, PAF, HLT, cardiomyopathy, CVA X2 2019, hypomag, hypercalcemia. She lives with her at home. Goes swimming daily to do exercises. Random BG in clinic today 167. bfast was coffee w/ egg on toast. Only takes her humalog before dinner. FMH DM: unsure if father had DM 4 of her siblings have TIIDM Recent A1C: 7 (02/2021) 6.9 (11/2020) 7.1 (09/2020) 8.4 (06/2020) Diabetic Medications: ozempic 1 mg weekly lantus 36 units AM Metformin XR 750 mg twice [...] water, no etoh Exercise: swimming when able. gardening Diabetes Related Problems Eye exam current (within one year): UTD, sees clinic in [place] Last dental exam: overdue. Will schedule. CVD,PVD,CAD: HTN, HLD,CVA Statin: repatha injections. Aspirin: yes ACEI/ARB: candesartan 32 mg Prior visit with hall worker: yes, JALEN Hyman. Foot care: podiatry Comorbidities: Retinopathy: no Nephropathy/Kidney function: GFR 44 (05/2020) MCR up to date? 375 (06/2020) Neuropathy: no sensation in BL feet/legs Review [...] content normal. CGM INTERPRETATION Type of CGM: personal Lo 2 02/21-03/06/2021 Type of DM: II Diabetic Medications: lantus Metformin ozmepic humalog Indication for monitoring: Hyper/hypoglycemia, insulin dosing Report Interpretation: Average glucose 144mg/dL, standard deviation 27.5 TIR 81%, TAR 19%, TBR % Overall doing well, elevated with bfast daily. Nocturnal glucose control: yes Post-prandial glucose excursions: bfast and sometimes dinner Hypoglycemia incidence: no Other (exercise/activity): gardening Hemoglobin A1c, POC Date Value Ref Range Status 03/06/2021 7.0 (A) 5.7 % Final No results found for: MICROALBUR, [id number] Lab Results Component Value Date NA 137 11/23/2019 K 5.1 (H) 11/23/2019 CL 108 11/23/2019 CO2 20 (L) 11/23/2019 BUN 26 11/23/2019 GLU 199 (H) 11/23/2019 CA 11.2 (H) 11/23/2019 Joanna Hart is a 70 y.o. female who presented to the clinic for a follow-up in [facility], with a history of DM for 14 yrs. Problem List Items Addressed This Visit Endocrine/Metabolic USP current use of insulin ([facility]) Diabetes mellitus, type 2 ([facility]) - Primary Controlled A1C 7 Continue current regimen: ozempic 1 mg weekly, lantus 36 units AM, Metformin XR 750 mg twice daily, humalog SS for meals: 100-150 2 units, 150-200 4 units 200-250 6 units 250-300 8 units Encouraged to take the humalog 10-15 minutes before breakfast AND dinner, follow the sliding scale. Continue with Lo CGM. Call with concerns of lows <70 consistently or >200. Follow-up in 3 months. Due for labs: pending kidney function may have to lower/d/c metformin. Relevant Medications OZEMPIC 1 mg/dose (4 mg/3 mL) pen injector Other Relevant Orders POCT GLUCOSE, MANUAL ENTRY (Completed) POCT HEMOGLOBIN A1C (Completed) Cardiac/Vasculature Essential hypertension LDL at goal. Mixed hyperlipidemia Due for lipids w/ PCP. LDL at goal Patient Goals: A1C <7.5% [...] Plan Note - Sarika Zamudio APRN - 03/06/2021 1030 EDT Associated Problem(s): Essential hypertension LDL at goal. * Assessment & Plan Note - Sarika Zamudio APRN - 03/06/2021 1028 EDT Associated Problem(s): Mixed hyperlipidemia Due for lipids w/ PCP. LDL at goal * Assessment & Plan Note - Sarika Zamudio APRN - 03/06/2021 1017 EDT Associated Problem(s): Diabetes mellitus, type 2 ([facility]) Controlled A1C 7 Continue current regimen: ozempic 1 mg weekly, lantus 36 units AM, Metformin XR 750 mg twice daily, humalog SS for meals: 100-150 2 units, 150-200 4 units 200-250 6 units 250-300 8 units Encouraged to take the humalog 10-15 minutes before breakfast AND dinner, follow the sliding scale. Continue with Lo CGM. Call with concerns of lows <70 consistently or >200. Follow-up in 3 months. Due for labs: pending kidney function may have to lower/d/c metformin. documented in this encounter Plan of Treatment Upcoming Encounters Date Type Department Care Team (Late st Contact Info) Description 03/08/2024 9:30 EDT Ancillary Procedure [facility] [address] [place], [place] [id number] 03/08/2024 10:15 EDT Ancillary Procedure [facility] Cardiology [address] [place] [address] 04/05/2024 10:00 EDT Ancillary Procedure [facility] [address] [place] [address] 04/05/2024 10:00 EDT Office Visit [facility] [address] [place] [address] Carlos Ha NP [address] [place] [address]-[address] [place] [address] documented as of this encounter Procedures Procedure Name Priority Date/Time Associated Diagnosis Comments POCT GLUCOSE, MANUAL ENTRY Routine 03/06/2021 Type 2 diabetes mellitus with hyperglycemia, with long-term current use of insulin ([facility]) POCT HEMOGLOBIN A1C Routine 03/06/2021 Type 2 diabetes mellitus with hyperglycemia, with long-term current use of insulin ([facility]) documented in this encounter Results * (ABNORMAL) POCT HEMOGLOBIN A1C (03/06/2021) Hemoglobin A1c, POC 7.0(A) 5.7 % [facility] POINT OF CARE Blood CAPILLARY BLOOD / Unknown 03/06/2021 Sarika Zamudio PACKING ROOM INSPECTOR POINT OF CARE FUNMILAYO T ORDERABLES [facility] POINT OF CARE * (ABNORMAL) POCT GLUCOSE, MANUAL ENTRY (03/06/2021) Glucose, POC 167(A) 70 - 100 mg/dL [facility] POINT OF CARE HN LAB POC COMMENT MANUAL (GLUCOSE) [facility] POINT OF gym supervisor ID [facility] PO[facility] T OF CARE Blood CAPILLARY BLOOD / Unknown 03/06/2021 Sarika Zamudio PACKING ROOM INSPECTOR POINT OF CARE FUNMILAYO T ORDERABLES [facility] POINT OF CARE documented in this encounter Visit Diagnoses Diagnosis Type 2 diabetes mellitus with hyperglycemia, with long-term current use of insulin ([facility])- Primary 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 Abstraction 10/02/2020 03/06/2021 pimecrolimus (ELIDEL) 1 % cream 1 sylvain applied topically 2 times a day as needed in the winter only 03/06/2021 fluorouraciL (EFUDEX) 5 % creamIndications:uses in winter 09/30/2020 03/06/2021 documented as of this encounter Historical Medications * This list may reflect changes made after this encounter. Medication Sig Dispensed Refills Start Date End Date OZEMPIC 1 mg/dose (4 mg/3 mL) pen injector Inject 1 mg into the skin once a week. Sundays02/09/2021 added in this encounter Care Teams Sound Engineer Relationship Specialty Start Date End Date Bryant Crain MD [address] [place] [address] PCP - General 05/04/15 05/17/23 documented as of this encounter
--- OUTSIDE RECORDS SUMMARY | 2024-01-07 11:14 | XMS_ITS | Encounter Summary ---
Author Organization [facility] Address [address] [place] [address] Care Team Providers Care Parallel Computing Software Engineer Name Role Phone Bryant Crain MD Primary Care Provider [phone] Reason for Visit * Reason Onset Date Comments Blood Sugar Problem 07/15/2021 Encounter Details Date Type Department Care Team (Late st Contact Info) Description 07/15/2021 Telephone [facility] End[facility]inology [address] [place] [address] Heidi Moore RN Blood Sugar Problem Social History Tobacco Use Types Packs/Day Years [...] encounter Miscellaneous Notes * Telephone Encounter - Heidi Moore RN - 07/15/2021 5296 EST Called with low bg's in the past week during the night- as low as 50's During the day she stays from 70-150- is taking lantus 37 u in am , alll other meds correct Per Sarika, decrease lantus to 30 u daily and call in a few days with update Med list updated documented in this encounter Plan of Treatment Upcoming Encounters Date Type Department Care Team (Late st Contact Info) Description 03/08/2024 9:30 EDT Ancillary Procedure [facility] [place] Cardiology - [address] [place] [address] 03/08/2024 10:15 EDT Ancillary Procedure [facility] Cardiology [address] [place] [address] 04/05/2024 10:00 EDT Ancillary Procedure [facility] Clinic [address] [place] [id number] 04/05/2024 10:00 EDT Office Visit [facility] [address] [place] [address] Carlos Ha NP [address] [place] [address] [place] [phone] documented as of this encounter Visit Diagnoses Not on filedocumented in this encounter Discontinued Medications Medication Sig Discontinue Reason Start Date End Da te insulin glargine (LANTUS SOLOSTAR U-100 INSULIN) 100 unit/mL (3 mL) injection penIndications:taking 36 Inject 38 Units into the skin daily. Order modification 07/15/2021 documented as of this encounter Historical Medications * This list may reflect changes made after this encounter. Medication Sig Dispensed Refills Start Date End Date insulin glargine (LANTUS SOLOSTAR U-100 INSULIN) 100 unit/mL (3 mL) injection pen Inject 31 Units into the skin daily. 07/15/2021 added in this encounter Care Teams Parallel Computing Software Engineer Relationship Specialty Start Date End Date Bryant Crain MD [address] [place] [address] PCP - General 05/04/15 05/17/23 documented as of this encounter
--- OUTSIDE RECORDS SUMMARY | 2024-01-07 11:14 | XMS_ITS | Encounter Summary ---
Author Organization [facility] Address [address] [place] [address] Care Team Providers Care Schedule Planning Manager Name Role Phone Bryant Crain MD Primary Care Provider [phone] Reason for Visit * Reason Onset Date Comments Follow-up 03/18/2021 Reveal explant Encounter Details Date Type Department Care Team (Late st Contact Info) Description 03/18/2021 Telephone [facility] [address] [place] [address] Rea Ness, JALEN [address] [place] [address]-[address] [place] [address] Follow-up (Reveal explant) Social History Tobacco Use Types Packs/Day Years [...] encounter Miscellaneous Notes * Telephone Encounter - Hayley Robles - 04/11/2021 1124 EDT [facility] called. The girl I spoke with said she was going to go ahead and approve the phototypesetting equipment monitor removal. She left her direct line as * Telephone Encounter - Rea Ness RN - 04/08/2021 1637 EDT PA obtained for Reveal [id number] Auth#-[id number] Ref #[id number] * Telephone Encounter - Rea Ness RN - 03/25/2021 1450 EDT Spoke with patient, notified her of reveal explant date, 04/09/21 @ 8:30AM. Patient agrees with this date and time * Telephone Encounter - Rea Ness RN - 03/18/2021 0946 EDT Per Carlos, patient needs removal of reveal as is has reached EOS. Will place on procedure schedule. documented in this encounter Plan of Treatment Upcoming Encounters Date Type Department Care Team (Late st Contact Info) Description 03/08/2024 9:30 EDT Ancillary Procedure [facility] Cardiology - [address] [address] 03/08/2024 10:15 EDT Ancillary Procedure [facility] [place] [address] 04/05/2024 10:00 EDT Ancillary Procedure [facility] [address] [place] [id number] 04/05/2024 10:00 EDT Office Visit [facility] [address] [place], [place] [phone] Carlos Ha NP 130 [facility]-[address] [place] [phone] documented as of this encounter Visit Diagnoses Not on filedocumented in this encounter Care Teams Schedule Planning Manager Relationship Specialty Start Date End Date Bryant Crain MD [address] [place] [address] PCP - General 05/04/15 05/17/23 documented as of this encounter
--- OUTSIDE RECORDS SUMMARY | 2024-01-07 11:14 | XMS_ITS | Encounter Summary ---
Author Organization [facility] Address [address] [place] [address] Care Team Providers Care Dog Track Kennel Manager Name Role Phone Bryant Crain MD Primary Care Provider [phone] Reason for Visit * Reason Onset Date Comments Medications Refill 10/29/2020 Encounter Details Date Type Department Care Team (Late st Contact Info) Description 10/29/2020 Refill [facility] Endocrinology [address] [place] [address] Heidi Moore RN Medications Refill Social History Tobacco Use Types [...] Dispensed Refills Start Date End Da te flash glucose sensor (FREESTYLE MELANIE 2 SENSOR) kit 1 Units by [facility] (non-drug; combo route) route every 14 days. 6 Kit 3 10/29/2020 12/29/2021 documented in this encounter Miscellaneous Notes * Telephone Encounter - Heidi Moore RN - 10/29/2020 1017 EDT Pt was rx'd melanie 2 reader and melanie sensors-- needs melanie 2 sensors sen t to [facility] / done documented in this encounter Plan of Treatment Upcoming Encounters Date Type Department Care Team (Late st Contact Info) Description 03/08/2024 9:30 EDT Ancillary Procedure [facility] Cardiology [place] [address] [place], [place] [phone] 03/08/2024 10:15 EDT Ancillary Procedure [facility] Cardiology [place] [address] [address] [place], [place] [phone] 04/05/2024 10:00 EDT Ancillary Procedure [facility] Clinic [address] [place] [phone] 04/05/2024 10:00 EDT Office Visit [facility]iology Clinic [address] [place] [phone] Carlos Ha NP [address] [facility]-A [address] [place] [phone] documented as of this encounter Visit Diagnoses Not on filedocumented in this encounter Discontinued Medications Medication Sig Discontinue Reason Start Date End Da te flash glucose sensor (FREESTYLE MELANIE 14 DAY SENSOR) kitIndications:Type 2 diabetes mellitus with hyperglycemia, with long-term current use of insulin ([facility]) 1 application by misc (non-drug; combo route) route continuous. 10/02/2020 10/29/2020 documented as of this encounter Care Teams Dog Track Kennel Manager Relationship Specialty Start Date End Date Bryant Crain MD [address] [place], [place] [phone] PCP - General 05/04/15 05/17/23 documented as of this encounter
--- OUTSIDE RECORDS SUMMARY | 2024-01-07 11:14 | XMS_ITS | Encounter Summary ---
Author Organization [facility] Address [address] [place] [address] Care Team Providers Care Sales Manager [place] Name Role Phone Bryant Crain MD Primary Care Provider [phone] Carlos Ha MUSIC ARTIST Unavailable [phone] Encounter Details Date Type Department Care Team (Latest Contact Info) Description 11/11/2022 Travel Social History Tobacco Use Types Packs/Day [...] [facility] - [facility] [address] [place] [address] 03/08/2024 10:15 EDT Ancillary Procedure [facility] Cardiology - [place] [address] [place] [address] 04/05/2024 10:00 EDT Ancillary Procedure [facility] Cardiology Clinic [address] [place] [phone] 04/05/2024 10:00 EDT Office Visit [facility] Cardiology Clinic [address] [place] [address] Carlos Ha NP [address] [place] [phone] documented as of this encounter Visit Diagnoses Not on filedocumented in this encounter Care Teams Sales Manager [place] Relationship Specialty Start Date End Date Bryant Crain MD [address] [place], [place] [phone] PCP - General 05/04/15 05/17/23 Carlos Ha NP [address] [place] [phone] Consulting Clinician Cardiovascular Disease 09/14/21 documented as of this encounter
--- OUTSIDE RECORDS SUMMARY | 2024-01-07 11:14 | XMS_ITS | Encounter Summary ---
Author Organization [facility] Address [address] [place] [address] Care Team Providers Care Smelting Engineer Name Role Phone Bryant Crain MD Primary Care Provider [phone] Encounter Details Date Type Department Care Team (Late st Contact Info) Description 11/21/2020 Orders Only [facility] Cardiology Clinic [address] [place] [address] Sabrina Herring MA Cryptogenic stroke (HCC-CMS) (Primary [...] Description 03/08/2024 9:30 EDT Ancillary Procedure [facility] Cardiology - [address] [place] [address] 03/08/2024 10:15 EDT Ancillary Procedure [facility] Cardiology - [facility] [address] [place] [address] 04/05/2024 10:00 EDT Ancillary Procedure [facility]iology Clinic [address] [place] [address] 04/05/2024 10:00 EDT Office Visit [facility] [address] [place], [place] [phone] Carlos Ha NP 130 [facility]-[address] [place] [phone] documented as of this encounter Procedures Procedure Name Priority Date/Time Associated Diagnosis Comments CARDIAC IMPLANT CHECK - REMOTE MONITOR Routine 11/21/2020 8:57 EDT Cryptogenic stroke (HCC-CMS) documented in this encounter Results * CARDIAC IMPLANT CHECK - REMOTE - LOOP RECORDER (ILR) (11/21/2020 8:57 EDT) Anatomical Region Laterality Modality Device Narrative 12/02/2020 8:59 EDT Remote transmission of ILR reviewed. Battery has reached INSTRUCTOR LOOPING. No arrhythmias, no symptoms. See scanned documents for full details. Procedure Note Orquidea Bowers APRN - 12/02/2020 Remote transmission of ILR reviewed. Battery has reached INSTRUCTOR LOOPING. Noarrhythmias, no symptoms. See scanned documents for full details. Carlos Ha NP CV IMPLANTABLE CARDI AC DEVICE documented in this encounter Visit Diagnoses Diagnosis Cryptogenic stroke (HCC-CMS)- Primary Unspecified cerebral artery occlusion with cerebral infarction documented in this encounter Care Teams Smelting Engineer Relationship Specialty Start Date End Date Bryant Crain MD [address] [place], [place] [phone] PCP - General 05/04/15 05/17/23 documented as of this encounter
--- OUTSIDE RECORDS SUMMARY | 2024-01-07 11:14 | XMS_ITS | Encounter Summary ---
Author Organization [facility] Address [address] [place] [address] Care Team Providers Care Product Operations Associate Name Role Phone Bryant rCain MD Primary Care Provider [phone] Reason for Visit * (Routine) - Order Cancelled Specialty Diagnoses / Procedures Referred By Charo daniel Referred To Contact Diagnoses Cryptogenic stroke ([facility]) Procedures CARDIAC IMPLANT CHECK - IN CLINIC Carlos Ha NP [address] [facility]-A [address] [place] [address] Referral ID Status Reason Start Date Expiration Date V isits Requested Visits Authorized [id number] Order Cancelled 06/11/2020 18 18 Encounter Details Date Type Department Care Team (Late st Contact Info) Description 03/14/2021 9:00 EDT Ancillary Procedure [facility] Clinic [address] [place] [phone] Social History Tobacco Use Types Packs/Day Years [...] Yes 11/23/2019 Cognitive Status Response Date of Assess ent Because of a physical, menta l, or emotional condition, does this person have serious difficulty concentrating, remembering, or making decisions? Yes 11/23/2019 documented as of this encounter Plan of Treatment Upcoming Encounters Date Type Department Care Team (Late st Contact Info) Description 03/08/2024 9:30 EDT Ancillary Procedure [facility] Cardiology - [facility] [address] [place] [address] 03/08/2024 10:15 EDT Ancillary Procedure [facility] Cardiology [facility] [address] [place] [address] 04/05/2024 10:00 EDT Ancillary Procedure [facility] Clinic [address] [place] [phone] 04/05/2024 10:00 EDT Office Visit [facility] [address] [place] [phone] Carlos Ha, RAHEEM [address] [place] [address]-[address] [place] [phone] documented as of this encounter Procedures Procedure Name Priority Date/Time Associated Diagnosis Comments CARDIAC IMPLANT CHECK - IN CLINIC Routine 03/14/2021 9:30 EDT Cryptogenic stroke (HCC-CMS) documented in this encounter Results * CARDIAC IMPLANT CHECK - IN CLINIC - LOOP RECORDER (ILR) W/ PROG (03/14/2021 9:30 EDT) Anatomical Region Laterality Modality Device Narrative 03/14/2021 9:31 EDT I have reviewed the implantable loop recorder interrogation. ??I agree with the findings. See office note associated with today's visit for device details. Carlos Ha APRN Procedure Note Carlos Ha APRN - 03/14/2021 I have reviewed the implantable loop recorder interrogation. I agree withthe findings. See office note associated with today's visit for devicedetails. Carlos Ha APRN Carlos Ha SUPERVISOR SEWER MAINTENANCE CV IMPLANTABLE CARDI AC DEVICE documented in this encounter Visit Diagnoses Not on filedocumented in this encounter Care Teams Product Operations Associate Relationship Specialty Start Date End Date Bryant Crain MD [address] [place] [address] PCP - General 05/04/15 05/17/23 documented as of this encounter
--- OUTSIDE RECORDS SUMMARY | 2024-01-07 11:14 | XMS_ITS | Encounter Summary ---
Author Organization [facility] Address [address] [place] [address] Care Team Providers Care Medical Records Field Technician Name Role Phone Bryant Crain MD Primary Care Provider [phone] Reason for Visit * Reason Onset Date Comments Other 10/18/2020 unknown Encounter Details Date Type Department Care Team (Late st Contact Info) Description 10/18/2020 Telephone [facility] Endocrinology [address] [place] [address] Meme Valenzuela, RN [address] [place] [id number] Other (unknown) Social History Tobacco Use Types Packs/Day Years [...] Start Date End Da te flash glucose scanning reader (FREESTYLE VICKY 2 READER) misc 1 Device by misc (non-drug; combo route) route daily. Dispense one reader 1 Each 10/18/2020 documented in this encounter Miscellaneous Notes * Telephone Encounter - Meme Valenzuela, RN - 10/18/2020 1519 EDT Prescription faxed to pharmacy per order Sarika Zamudio. I asked they call back if reader is unaffordable documented in this encounter Plan of Treatment Upcoming Encounters Date Type Department Care Team (Late st Contact Info) Description 03/08/2024 9:30 EDT Ancillary Procedure [facility] Cardiology - [place] [address] [place] [address] 03/08/2024 10:15 EDT Ancillary Procedure [facility] Cardiology [address] [place] [address] 04/05/2024 10:00 EDT Ancillary Procedure [facility] [address] [place] [address] 04/05/2024 10:00 EDT Office Visit [facility] Card[facility] [address] [place] [address] Carlos Ha NP 130 [facility] [address] [place] [address] documented as of this encounter Visit Diagnoses Not on filedocumented in this encounter Care Teams Medical Records Field Technician Relationship Specialty Start Date End Date Bryant Crain MD [address] [place] [address] PCP - General 05/04/15 05/17/23 documented as of this encounter
--- OUTSIDE RECORDS SUMMARY | 2024-01-07 11:14 | XMS_ITS | Encounter Summary ---
Author Organization [facility] Address [address] [place] [address] Care Team Providers Care Surgical Physician Assistant Name Role Phone Bryant Crain MD Primary Care Provider [phone] Carlos Ha FIRESTOPPER INSTALLER Unavailable [phone] Reason for Visit * (Routine/Next Available) - Receiving Office to Obtain Authorization Specialty Diagnoses / Procedures Referred By Chaor daniel Referred To Contact Procedures CT OUTSIDE IMAGES ABDOMEN PELVIS Imaging, External Referral ID Status Reason Start Date Expiration Date Visits Requested Visits Authorized [id number] Receiving Office to Obtain Authorization 11/11/2022 1 1 Encounter Details Date Type Department Care Team (Latest Contact Info) Description 11/02/2022 - 11/02/2022 23:59 EDT Hospital Encounter [facility] [place] Discharge Disposition: Home [...] hyperglycemia, with long-term current use of insulin ([facility]) [place] [facility] (non-drug; combo route) route [...] reader (FREESTYLE VICKY 2 READER) [facility] 1 Device by [facility] (non-drug; combo route) route [...] 01/18/2020 lancets/blood glucose strips ([facility] TOUCH [facility]) -to test blood sugar - twice daily [...] Ancillary Procedure [facility] Cardiology - [facility] [place] [address] 03/08/2024 10:15 EDT Ancillary Procedure [facility] Cardiology [facility] [place] [address] 04/05/2024 10:00 EDT Ancillary Procedure [facility] Cardiology Clinic [address] [place] [address] 04/05/2024 10:00 EDT Office Visit [facility] Cardiology Clinic [address] [place] [address] Carlos Ha NP [address] [place] [address]-[address] [place] [address] documented as of this encounter Procedures Procedure Name Priority Date/Time Associated Diagnosis Comments CT OUTSIDE IMAGES ABDOMEN PELVIS Routine 11/02/2022 8:55 EDT documented in this encounter Results * CT OUTSIDE IMAGES ABDOMEN PELVIS (11/02/2022 8:55 EDT) Narrative 11/11/2022 8:55 EDT This is a non-reportable exam. External Imaging IMG OTHER IMAGING OR DERABLES documented in this encounter Visit Diagnoses Not on filedocumented in this encounter Care Teams Surgical Physician Assistant Relationship Specialty Start Date End Date Bryant Crain MD [address] [place], [place] [phone] PCP - General 05/04/15 05/17/23 Carlos aH NP [address] [place] [address]-[address] [place] [address] Consulting Clinician Cardiovascular Disease 09/14/21 documented as of this encounter
--- OUTSIDE RECORDS SUMMARY | 2024-01-07 11:14 | XMS_ITS | Encounter Summary ---
Author Organization [facility] Address [address] [place] [address] Care Team Providers Care Brand Mgr Name Role Phone Bryant Crain MD Primary Care Provider [phone] Reason for Visit * Reason Onset Date Comments Labs Only 11/08/2020 Encounter Details Date Type Department Care Team (Late st Contact Info) Description 11/08/2020 Telephone [facility] Endocrinology [address] [place] [address] Sarika Zamudio, IRRIGATION FOREMAN 130 [facility]- [address] [place] [phone] Labs Only Social History Tobacco Use Types Packs/Day Years [...] encounter Miscellaneous Notes * Telephone Encounter - Sarika Zamudio, JUSTIN - 11/08/2020 1313 EDT Reviewed recent urine and BMD, normal. Encouraged hydration! Monitor calcium yearly. Denies arthritis. Notes having [facility] of hypercalcemia. She did get Lo 2 CGM. BG 90-260 She did increase her ozempic 1 mg and tolerating this fine. Will review CGM data on next visit. documented in this encounter Plan of Treatment Upcoming Encounters Date Type Department Care Team (Late st Contact Info) Description 03/08/2024 9:30 EDT Ancillary Procedure [facility] Cardiology - [address] [place] [address] 03/08/2024 10:15 EDT Ancillary Procedure [facility] Cardiology - [address] [place] [address] 04/05/2024 10:00 EDT Ancillary Procedure [facility] Cardiology Clinic [address] [place] [address] 04/05/2024 10:00 EDT Office Visit [facility] Cardiology Clinic [address] [place] [address] Carlos Ha, RAHEEM 130 [facility]-[address] [place] [phone] documented as of this encounter Visit Diagnoses Not on filedocumented in this encounter Care Teams Brand Mgr Relationship Specialty Start Date End Date Bryant Crain MD [address] [place], [place] [phone] PCP - General 05/04/15 05/17/23 documented as of this encounter
--- OUTSIDE RECORDS SUMMARY | 2024-01-07 11:14 | XMS_ITS | Encounter Summary ---
Author Organization [facility] Address [address] [place] [address] Care Team Providers Care News Broadcaster Name Role Phone Bryant Crain MD Primary Care Provider [phone] Reason for Visit * Reason Comments Diabetes Encounter Details Date Type Department Care Team (Latest Contact Info) Description 12/04/2020 10:15 EDT Office Visit Health system Endocrinology [address] [place] [address] Sarika Zamudio, MANAGER OF SOFTWARE 130 [facility]- [address] [place] [phone] Type 2 diabetes mellitus with hyperglycemia, with long-term current use of insulin ([facility]) (Primary Dx); Primary hyperparathyroidism (HCC-CMS); Fatigue, unspecified type; Stage 3b chronic kidney disease Social History Tobacco Use Types Packs/Day Years [...] Sign Reading Time Taken Comments Blood Pressure 132/80 12/04/2020 0958 EDT Pulse 64 12/04/2020 0958 EDT Temperature - - Respiratory Rate 16 12/04/2020 0958 EDT Oxygen Saturation - - Inhaled Oxygen Concentration - - Weight 74.4 kg (164 lb) 12/04/2020 0958 EDT Height - - Body Mass Index 28.15 11/23/2019 0943 EDT documented in this encounter [...] * Patient Instructions* Sarika Zamudio APRN - 12/04/2020 10:15 EDT A1C 6.9. Congratulated on success! Lower lantus 38 units AM. Lower humalog sliding scale: 100-150 1 unit, 150-200 2 units, 200-250 3 units, 250-300 4 units. Continue with ozempic 1 mg weekly and metformin XR 750 mg twice daily. Continue with Lo 2 CGM, swipe before meals and bedtime. Continue with diet and increased activity. Follow-up in 3 months or sooner if needed. documented in this encounter Progress Notes * Sarika Zamudio APRN - 12/04/2020 1015 EDT Reason for Visit: DM f/up PCP: [...] since this. Random BG in clinic today 109. Had bfast of dropped egg on toast and coffee. Notes she feels tired and confused when her BG's are in target. Describes this as being in a fog over the past month has worsened. Notes getting light headed with movement, sitting/standing. Denies SOB, edema, CP. Tolerating the increase in ozempic well. Believes he has not taken her humalog for 2 weeks d/t BG's in target. Feels she is staying hydrated, about 3-4 bottles/day thus far. Will have eye exam notes sent over by PCP. [facility] DM: unsure if father had DM 4 of her siblings have TIIDM Recent A1C: 6.9 (11/2020) 7.1 (09/2020) 8.4 (06/2020) Diabetic Medications: ozempic 1 mg weekly lantus 40 units AM Metformin XR 750 mg twice daily. humalog SS for meals: 100-150 2 units, 150-200 4 units 200-250 6 units 250-300 8 units Farxiga and trulicity/victoza intolerant-gave her abdominal pain. Current monitoring regimen: Frequency of monitoring? : Lo 2 CGM Fasting range: Preprandial range: Postprandial range: Any episodes of hypoglycemia? Yes once in last 2 weeks. Cause of hypoglycemia? Nutrition Daily Recall: Breakfast: [...] (within one year): UTD, sees clinic in [place] Last dental exam: overdue. Will schedule. CVD,PVD,CAD: HTN, HLD,CVA Statin: repatha injections. Aspirin: yes ACEI/ARB: candesartan 32 mg Prior visit with whiting can worker: yes, JALEN Hyman. Foot care: podiatry Comorbidities: Retinopathy: no Nephropathy/Kidney function: GFR 44 (05/2020) MCR up to date? 375 (06/2020) Neuropathy: no sensation in BL feet/legs Review of Systems Constitutional: Negative. Eyes: Negative. Endocrine: Negative. Neurological: Positive for numbness (BLLE). Physical Exam Constitutional: Appearance: Normal appearance. HENT: Head: Normocephalic and atraumatic. Cardiovascular: Rate and Rhythm: Normal rate and regular rhythm. Heart sounds: Murmur heard. Pulmonary: Effort: Pulmonary effort is normal. Breath sounds: Normal breath sounds. Skin: General: Skin is warm and dry. Neurological: Mental Status: She is alert and oriented to person, place, and time. Psychiatric: Mood and Affect: Mood normal. Behavior: Behavior normal. Thought Content: Thought content normal. CGM INTERPRETATION Type of CGM: personal Lo 2 11/21-12/04/2020 Type of DM: II Diabetic Medications: lantus Metformin ozmepic humalog Indication for monitoring: Hyper/hypoglycemi, insulin dosing Report Interpretation: Average glucose 131 mg/dL, standard deviation 27.5 TIR 88%, TAR 11%, TBR 1 % overall doing very well, mild elevations with lunchtime. Nocturnal glucose control: yes Post-prandial glucose excursions: some after lunch Hypoglycemia incidence: once Other (exercise/activity): gardening Hemoglobin A1c, POC Date Value Ref Range Status 12/04/2020 6.9 (A) 5.7 % Final No results found for: MICROALBUR, [id number] Lab Results Component Value Date NA 137 [...] This Visit Endocrine/Metabolic Diabetes mellitus, type 2 ([facility]) - Primary Controlled A1C 6.9. Congratulated on success! Lower lantus 38 units AM. Lower humalog sliding scale: 100-150 1 unit, 150-200 2 units, 200-250 3 units, 250-300 4 units. Continue with ozempic 1 mg weekly and metformin XR 750 mg twice daily. Continue with Lo 2 CGM, swipe before meals and bedtime. Continue with diet and increased activity. Follow-up in 3 months or sooner if needed. Relevant Orders VITAMIN B12 URINE [id number] RATIO (ACR) Primary hyperparathyroidism ([facility]) Encouraged to increase hydration 5-6 bottles water/day, this can include tea/crystal light. Will check calcium levels yearly, more often with change in kidney function. Genitourinary/Reproductive Stage 3b chronic kidney disease Stable. Labs ordered. Pending MALB, GFR will start SGLT. Other Fatigue ?cardiac vs orthostatic hypotension vs glucose regulation. Has upcoming ECHO scheduled. Discussed checking BP at home with anna. Has upcoming visit with PCP for further w/up. Will reach out to quality rep as well. We did discuss giving her body time to adjust to BG's normalizing, did lower lantus and humalog today. Patient Goals: A1C <7.5% Exercise: 150 minutes of CV exercise/week. I spent a total of 35 minutes on the date of this encounter meeting with the patient and reviewing documentation/coordinating care as described in the above note. No procedures were performed at the time of the visit. Time does not include reviewing CGM data. * Heidi Moore RN - 12/04/2020 1000 EDT Needs eye exam- had done May will have report sent Lab Results Component Value Date UABCR 375.4 07/10/2020 HGBA1C 8.4 (A) 07/10/2020 documented in this encounter Miscellaneous Notes * Assessment & Plan Note - Sarika Zamudio APRN - 12/04/2020 1058 EDT Associated Problem(s): Stage 3b chronic kidney disease ([facility]) Stable. Labs ordered. Pending MALB, GFR will start SGLT. * Assessment & Plan Note - Sarika Zamudio APRN - 12/04/2020 1056 EDT Associated Problem(s): Fatigue ?cardiac vs orthostatic hypotension vs glucose regulation. Has upcoming ECHO scheduled. Discussed checking BP at home with lightheadedness. Has upcoming visit with PCP for further w/up. Will reach out to quality rep as well. We did discuss giving her body time to adjust to BG's normalizing, did lower lantus and humalog today. * Assessment & Plan Note - Sarika Zamudio APRN - 12/04/2020 1041 EDT Associated Problem(s): Primary hyperparathyroidism ([facility]) Encouraged to increase hydration 5-6 bottles water/day, this can include tea/crystal light. Will check calcium levels yearly, more often with change in kidney function. * Assessment & Plan Note - Sarika Zamudio APRN - 12/04/2020 1029 EDT Associated Problem(s): Diabetes mellitus, type 2 ([facility]) Controlled A1C 6.9. Congratulated on success! Lower lantus 38 units AM. Lower humalog sliding scale: 100-150 1 unit, 150-200 2 units, 200-250 3 units, 250-300 4 units. Continue with ozempic 1 mg weekly and metformin XR 750 mg twice daily. Continue with Lo 2 CGM, swipe before meals and bedtime. Continue with diet and increased activity. Follow-up in 3 months or sooner if needed. documented in this encounter Plan of Treatment Upcoming Encounters Date Type Department Care Team (Late st Contact Info) Description 03/08/2024 9:30 EDT Ancillary Procedure [facility] Cardiology - [place] [address] 03/08/2024 10:15 EDT Ancillary Procedure [facility] Cardiology - [address] [place] [address] 04/05/2024 10:00 EDT Ancillary Procedure [facility] Cardiology Clinic [address] [place], [place] [address] 04/05/2024 10:00 EDT Office Visit [facility] Cardiology Clinic [address] [place], [place] [id number] Carlos Ha NP 130 [facility] [address] [place] [phone] documented as of this encounter Visit Diagnoses Diagnosis Type 2 diabetes mellitus with hyperglycemia, with long-term current use of insulin (HCC-CMS)- Primary Primary hyperparathyroidism (HCC-CMS) Primary hyperparathyroidism Fatigue, unspecified type Stage 3b chronic kidney disease (HCC-CMS) documented in this encounter Care Teams News Broadcaster Relationship Specialty Start Date End Date Bryant Crain MD [address] [place] [address] PCP - General 05/04/15 05/17/23 documented as of this encounter
--- OUTSIDE RECORDS SUMMARY | 2024-01-07 11:15 | XMS_ITS | Encounter Summary ---
Author Organization [facility] Address [address] [place] [address] Care Team Providers Care Wrapper Sorter Name Role Phone Bryant Crain MD Primary Care Provider [phone] Encounter Details Date Type Department Care Team (Late st Contact Info) Description 09/14/2019 Orders Only [facility] Cardiology Clinic [address] [place] [address] Ana Epperson, RAHEEM Status post placement of implantable loop recorder (Primary Dx) Social History Tobacco Use Types Packs/Day Years Used Date Smoking Tobacco: Never Assessed Sex and Gender Information Value Date Recorded Sex Assigned at Not on file Gender Identity Female 06/01/2019 10:00 EST Sexual Orientation Not on file documented as of this encounter Plan of Treatment Upcoming Encounters Date Type Department Care Team (Late st Contact Info) Description 03/08/2024 9:30 EDT Ancillary Procedure [facility] Cardiology - [facility] [place] [address] 03/08/2024 10:15 EDT Ancillary Procedure [facility] Cardiology - [facility] [address] [place], [place] [id number] 04/05/2024 10:00 EDT Ancillary Procedure [facility] Cardiology Clinic [address] [place] [address] 04/05/2024 10:00 EDT Office Visit [facility] [address] [place] [address] Carlos Ha NP 130 [facility] [address] [place] [address] documented as of this encounter Procedures Procedure Name Priority Date/Time Associated Diagnosis Comments CARDIAC IMPLANT CHECK - REMOTE MONITOR Routine 09/15/2019 9:16 EDT Status post placement of implantable loop recorder documented in this encounter Results * CARDIAC IMPLANT CHECK - REMOTE - LOOP RECORDER (ILR) (09/15/2019 9:16 EDT) Anatomical Region Laterality Modality Device Narrative 09/15/2019 9:21 EDT I have reviewed the implantable loop recorder interrogation. ??I agree with the findings. Patient noted to have a 6 second episode of NSVT @188 bpm. EGM reviewed with ABRAM. Suggested we start BB Metoprolol 12.5mg bid and consider ischemic workup. I attempted to call patient on 09/13 in the afternoon and again this morning. Case also discussed with Ana Epperson NP her primary Cardiology provider. Will continue to try and get in touch with patient. Carlos Ha APRN Procedure Note Carlos Ha APRN - 09/15/2019 I have reviewed the implantable loop recorder interrogation. I agree withthe findings. Patient noted to have a 6 second episode of NSVT @188 bpm.EGM reviewed with ABRAM. Suggested we start BB Metoprolol 12.5mg bid andconsider ischemic workup. I attempted to call patient on 09/13 in theafternoon and again this morning. Case also discussed with Nabila Still primary Cardiology provider. Will continue to try and get in touchwith patient. Carlos Ha APRN Ana Epperson NP CV IMPLANTABLE CARDI AC DEVICE documented in this encounter Visit Diagnoses Diagnosis Status post placement of implantable loop recorder- Primary Other specified cardiac device in situ documented in this encounter Care Teams Wrapper Sorter Relationship Specialty Start Date End Date Bryant Crain MD [address] [place] [address] PCP - General 05/04/15 05/17/23 documented as of this encounter
--- OUTSIDE RECORDS SUMMARY | 2024-01-07 11:15 | XMS_ITS | Encounter Summary ---
Author Organization [facility] Address [address] [place] [address] Care Team Providers Care Upholstery Covers Inspector Name Role Phone Bryant Crain MD Primary Care Provider [phone] Encounter Details Date Type Department Care Team (Late st Contact Info) Description 10/16/2019 Orders Only [facility] Cardiology Clinic [address] [place] [address] Ana Epperson, RAHEEM Status post placement [...] 03/08/2024 9:30 EDT Ancillary Procedure [facility] Cardiology - [facility] [place] [address] 03/08/2024 10:15 EDT Ancillary Procedure [facility] Cardiology - [facility] [address] [place], [place] [id number] 04/05/2024 10:00 EDT Ancillary Procedure [facility] Cardiology Clinic [address] [place] [address] 04/05/2024 10:00 EDT Office Visit [facility] Cardiology Clinic [address] [place] [address] Carlos Ha, EDUCATIONAL ADVISER 130 [facility] [address] [place] [address] documented as of this encounter Procedures Procedure Name Priority Date/Time Associated Diagnosis Comments CARDIAC IMPLANT CHECK - REMOTE MONITOR Routine 10/16/2019 12:37 EDT Status post placement of implantable loop recorder documented in this encounter Results * CARDIAC IMPLANT CHECK - REMOTE - LOOP RECORDER (ILR) (10/16/2019 12:37 EDT) Anatomical Region Laterality Modality Device Narrative 10/16/2019 12:37 EDT Remote transmission of ILR reviewed. Good battery status. No arrhythmias, no symptoms. See scanned documents for full details. Procedure Note Orquidea Bowers APRN - 10/16/2019 Remote transmission of ILR reviewed. Good battery status. No arrhythmias,no symptoms. See scanned documents for full details. Ana A [place] EDUCATIONAL ADVISER CV IMPLANTABLE CARDI AC DEVICE documented in this encounter Visit Diagnoses Diagnosis Status post placement of implantable loop recorder- Primary Other specified cardiac device in situ documented in this encounter Care Teams Upholstery Covers Inspector Relationship Specialty Start Date End Date Bryant Crain MD [address] [place], [place] [phone] PCP - General 05/04/15 05/17/23 documented as of this encounter
--- OUTSIDE RECORDS SUMMARY | 2024-01-07 11:15 | XMS_ITS | Encounter Summary ---
Author Organization [facility] Address [address] [place] [address] Care Team Providers Care Manager Printing Name Role Phone Bryant Crain MD Primary Care Provider [phone] Encounter Details Date Type Department Care Team (Late st Contact Info) Description 06/06/2019 Orders Only [facility] Cardiology Clinic [address] [place] [address] Ana Epperson, CHIEF OF HARBOR PATROL Social History Tobacco Use Types Packs/Day Years Used Date Smoking Tobacco: Never Assessed Sex and Gender Information Value Date Recorded Sex Assigned at Not on file Gender Identity Female 06/01/2019 10:00 EST Sexual Orientation Not on file documented as of this encounter Ordered Prescriptions Prescription Sig Dispensed Refills Start Date End Da te ezetimibe (ZETIA) 10 mg tablet Take 1 Tab by mouth daily for 90 days. 90 Tab 3 06/06/2019 09/04/2019 documented in this encounter Progress Notes * Ana Epperson, JUSTIN - 06/06/2019 1841 EST Called and spoke with pt. Regarding lipid results. Will try Zetia as she doesn't tolerate statins due to severe myalgias. documented in this encounter Plan of Treatment Upcoming Encounters Date Type Department Care Team (Late st Contact Info) Description 03/08/2024 9:30 EDT Ancillary Procedure [facility] [place] [address] 03/08/2024 10:15 EDT Ancillary Procedure [facility] Cardiology [place] [address] 04/05/2024 10:00 EDT Ancillary Procedure [facility] Cardiology Clinic [address] [place] [id number] 04/05/2024 10:00 EDT Office Visit [facility] Cardiology Clinic [address] [place] [phone] Carlos Ha NP 130 [facility]-A [address] [place] [address] documented as of this encounter Visit Diagnoses Not on filedocumented in this encounter Care Teams Manager Printing Relationship Specialty Start Date End Date Bryant Crain MD [address] [place], [place] [phone] PCP - General 05/04/15 05/17/23 documented as of this encounter
--- OUTSIDE RECORDS SUMMARY | 2024-01-07 11:15 | XMS_ITS | Encounter Summary ---
Author Organization [facility] Address [address] [place] [address] Care Team Providers Care Water Pump Assembler Name Role Phone Bryant Crain MD Primary Care Provider [phone] Encounter Details Date Type Department Care Team (Late st Contact Info) Description 08/15/2020 Orders Only [facility] Cardiology Clinic [address] [place] [address] Carlos Ha, RAHEEM [address] [facility] [address] [place] [address] Cryptogenic stroke (HCC-CMS) (Primary Dx) [...] Ancillary Procedure [facility] Cardiology - [facility] [address] [place] [address] 03/08/2024 10:15 EDT Ancillary Procedure [facility] Cardiology - [facility] [address] [place] [address] 04/05/2024 10:00 EDT Ancillary Procedure [facility] Cardiology Clinic [address] [place] [address] [id number] 04/05/2024 10:00 EDT Office Visit [facility] Cardiology Clinic [address] [place] [address] [phone] Carlos Ha NP [address] [facility] [address] [place] [phone] documented as of this encounter Visit Diagnoses Diagnosis Cryptogenic stroke ([facility] Primary Unspecified cerebral artery occlusion with cerebral infarction documented in this encounter Care Teams Water Pump Assembler Relationship Specialty Start Date End Date Bryant Crain MD [address] [place], [place] [id number] PCP - General 05/04/15 05/17/23 documented as of this encounter
--- OUTSIDE RECORDS SUMMARY | 2024-01-07 11:15 | XMS_ITS | Encounter Summary ---
Author Organization [facility] Address [address] [place] [address] Care Team Providers Care Heel Builder Machine Name Role Phone Bryant Crain MD Primary Care Provider [phone] Encounter Details Date Type Department Care Team (Late st Contact Info) Description 01/15/2020 Orders Only [facility] Cardiology Clinic [address] [place] [address] Ana Epperson, RAHEEM Status post placement of implantable loop recorder (Primary Dx) Social History Tobacco Use Types Packs/Day Years Used Date Smoking Tobacco: Never Smokeless Tobacco: Never Sex and Gender Information Value Date Recorded [...] EDT Ancillary Procedure [facility] Cardiology - [address] [place], [place] [id number] 03/08/2024 10:15 EDT Ancillary Procedure [facility] Cardiology - [address] [place] [address] 04/05/2024 10:00 EDT Ancillary Procedure [facility] Cardiology Clinic [address] [place], [place] [address] 04/05/2024 10:00 EDT Office Visit [facility] Cardiology Clinic [address] [place], [place] 218[address] Carlos Ha NP [address] [facility] [address] [place] [address] documented as of this encounter Procedures Procedure Name Priority Date/Time Associated Diagnosis Comments CARDIAC IMPLANT CHECK - REMOTE MONITOR Routine 01/15/2020 9:25 EDT Status post placement of implantable loop recorder documented in this encounter Results * CARDIAC IMPLANT CHECK - REMOTE - LOOP RECORDER (ILR) (01/15/2020 9:25 EDT) Anatomical Region Laterality Modality Device Narrative 01/15/2020 9:25 EDT Remote transmission of ILR reviewed. Good battery status. No arrhythmias, no symptoms. See scanned documents for full details. Procedure Note Orquidea Bowers APRN - 01/15/2020 Remote transmission of ILR reviewed. Good battery status. No arrhythmias,no symptoms. See scanned documents for full details. Ana Epperson NP CV IMPLANTABLE CARDI AC DEVICE documented in this encounter Visit Diagnoses Diagnosis Status post placement of implantable loop recorder- Primary Other specified cardiac device in situ documented in this encounter Care Teams Heel Builder Machine Relationship Specialty Start Date End Date Bryant Crain MD [address] [place], [place] [id number] PCP - General 05/04/15 05/17/23 documented as of this encounter
--- OUTSIDE RECORDS SUMMARY | 2024-01-07 11:15 | XMS_ITS | Encounter Summary ---
Author Organization [facility] Address [address] [place] [address] Care Team Providers Care Behavioral School Counselors Name Role Phone Bryant Crain MD Primary Care Provider [phone] Encounter Details Date Type Department Care Team (Late st Contact Info) Description 06/11/2020 Orders Only [facility] Cardiology Clinic [address] [place], [place] [id number] Carlos Ha NP [address] [facility] [address] [place] [address] Cryptogenic stroke (HCC-CMS) (Primary Dx) [...] [address] [place] [address] 03/08/2024 10:15 EDT Ancillary Procedure [facility] Cardiology - [facility] [address] [place] [address] 04/05/2024 10:00 EDT Ancillary Procedure [facility] Cardiology Clinic [address] [place] [address] [phone] 04/05/2024 10:00 EDT Office Visit [facility] Cardiology Clinic [address] [place] [phone] Carlos Ha, BURRER MACHINE [address] [facility] [address] [place] [phone] documented as of this encounter Procedures Procedure Name Priority Date/Time Associated Diagnosis Comments CARDIAC IMPLANT CHECK - IN CLINIC Routine 03/14/2021 9:30 EDT Cryptogenic stroke (HCC-CMS) CARDIAC IMPLANT CHECK - REMOTE MONITOR Routine 06/19/2020 13:20 EST Cryptogenic stroke (HCC-CMS) documented in this encounter [...] for devicedetails. Carlos Ha APRN Carlos Ha BURRER MACHINE CV IMPLANTABLE CARDI AC DEVICE * CARDIAC IMPLANT CHECK - REMOTE - LOOP RECORDER (ILR) (06/19/2020 13:20 EST) Anatomical Region Laterality Modality Device Narrative 06/19/2020 13:20 EST I have reviewed the implantable loop recorder interrogation. ??I agree with the findings. See scanned document for details of remote download. Carlos Ha APRN Carlos Ha NP CV IMPLANTABLE CARDI AC DEVICE documented in this encounter Visit Diagnoses Diagnosis Cryptogenic stroke (HCC-CMS)- Primary Unspecified cerebral artery occlusion with cerebral infarction documented in this encounter Orders Imaging Orders Without Results Count Last Order ed Date First Ordered Date CARDIAC IMPLANT CHECK - IN CLINIC 1 020 documented in this encounter Care Teams Behavioral School Counselors Relationship Specialty Start Date End Date Bryant Crain MD [address] [place] [address] PCP - General 05/04/15 05/17/23 documented as of this encounter
--- OUTSIDE RECORDS SUMMARY | 2024-01-07 11:15 | XMS_ITS | Encounter Summary ---
Author Organization [facility] Address [address] [place] [address] Care Team Providers Care Front Desk Representative Name Role Phone Bryant Crain MD Primary Care Provider [phone] Reason for Visit * Reason Onset Date Comments Other 11/28/2019 Encounter Details Date Type Department Care Team (Late st Contact Info) Description 11/28/2019 Telephone [facility] Cardiology Clinic [address] [place] [address] Ana Epperson, AUTOMOBILE DETAILER Other Social History Tobacco Use Types Packs/Day [...] Notes * Telephone Encounter - Sabrina Herring - 11/29/2019 0811 EDT Noted, will call pt once stress test has been scheduled. * Telephone Encounter - Ana Epperson, JUSTIN - 11/28/2019 1727 EDT I called and left msg. On her phone that Yes, she needs the stress test to assure both of us, afterhaving the run of [place] noted on her REVEAL in August, that she has no ischemia before going to surgeryfor her removal of the cancer. If she has any questions, she can call back when I am in on . * Telephone Encounter - Sabrina Herring - 11/28/2019 1622 EDT Pt called in wondering if pt really needs to have the Nuc Med stress test done. She stated after seeing Ana during her last visit she feels much better about everything. Pt can be reached at [phone] documented in this encounter Plan of Treatment Upcoming Encounters Date Type Department Care Team (Late st Contact Info) Description 03/08/2024 9:30 EDT Ancillary Procedure [facility] Cardiology - [address] [place] [address] 03/08/2024 10:15 EDT Ancillary Procedure [facility] Cardiology - [address] [place] [address] 04/05/2024 10:00 EDT Ancillary Procedure [facility] Cardiology Clinic [address] [place] [id number] 04/05/2024 10:00 EDT Office Visit [facility] Cardiology Clinic [address] [place] [address] [phone] Carlos Ha NP [address] [place] [address]-[address] [place] [phone] documented as of this encounter Visit Diagnoses Not on filedocumented in this encounter Care Teams Front Desk Representative Relationship Specialty Start Date End Date Bryant Crain MD [address] [place] [address] PCP - General 05/04/15 05/17/23 documented as of this encounter
--- OUTSIDE RECORDS SUMMARY | 2024-01-07 11:15 | XMS_ITS | Encounter Summary ---
Author Organization [facility] Address [address] [place] [address] Care Team Providers Care Surfacing Technician Name Role Phone Bryant Crain MD Primary Care Provider [phone] Encounter Details Date Type Department Care Team (Late st Contact Info) Description 04/12/2020 Orders Only [facility] - [facility] Cardiology Clinic [address] [place] [address] Ana Epperson, RAHEEM Status post placement of [...] Description 03/08/2024 9:30 EDT Ancillary Procedure [facility] Cardiology - [place] [address] [place] [address] 03/08/2024 10:15 EDT Ancillary Procedure [facility] Cardiology - [facility] [address] [place] [address] 04/05/2024 10:00 EDT Ancillary Procedure [facility] Cardiology Clinic [address] [place] [address] 04/05/2024 10:00 EDT Office Visit [facility] Cardiology Clinic [address] [place] [address] Carlos Ha NP [address] [facility] [address] [place] [address] documented as of this encounter Procedures Procedure Name Priority Date/Time Associated Diagnosis Comments CARDIAC IMPLANT CHECK - REMOTE MONITOR Routine 04/15/2020 10:23 EDT Status post placement of implantable loop recorder documented in this encounter Results * CARDIAC IMPLANT CHECK - REMOTE - LOOP RECORDER (ILR) (04/15/2020 10:23 EDT) Anatomical Region Laterality Modality Device Narrative 04/15/2020 10:24 EDT Remote transmission of ILR reviewed. Good battery status. No arrhythmias, no symptoms. See scanned documents for full details. Procedure Note Orquidea Bowers APRN - 04/15/2020 Remote transmission of ILR reviewed. Good battery status. No arrhythmias,no symptoms. See scanned documents for full details. Ana A [place] STEWARD/STEWARDESS THIRD CV IMPLANTABLE CARDI AC DEVICE documented in this encounter Visit Diagnoses Diagnosis Status post placement of implantable loop recorder- Primary Other specified cardiac device in situ documented in this encounter Care Teams Surfacing Technician Relationship Specialty Start Date End Date Bryant Crain MD [address] [place] [address] PCP - General 05/04/15 05/17/23 documented as of this encounter
--- OUTSIDE RECORDS SUMMARY | 2024-01-07 11:15 | XMS_ITS | Encounter Summary ---
Author Organization [facility] Address [address] [place] [address] Care Team Providers Care Trial Justice Name Role Phone Bryant Crain MD Primary Care Provider [phone] Reason for Visit * Reason Onset Date Comments Medication Problem 12/11/2019 Encounter Details Date Type Department Care Team (Late st Contact Info) Description 12/11/2019 Telephone [facility] Cardiology Clinic [address] [place] [address] Rea Ness, RN [address] [place] [address]-[address] [place] [address] Medication Problem Social History Tobacco Use Types Packs/Day [...] encounter Miscellaneous Notes * Telephone Encounter - Rea Ness, JALEN - 12/11/2019 0946 EDT Patient called as she is having a procedure on and was asked to hold her Eliquis. She is now questioning if she should also hold her aspirin. Discussed with Ana Epperson SPRINKLER FITTER APPRENTICE. Yes, patient should also hold aspirin. Spoke with patient and notified yes, OK to hold aspirin. documented in this encounter Plan of Treatment Upcoming Encounters Date Type Department Care Team (Late st Contact Info) Description 03/08/2024 9:30 EDT Ancillary Procedure [facility] Cardiology [address] [place] [address] 03/08/2024 10:15 EDT Ancillary Procedure [facility] Cardiology [address] [place] [address] 04/05/2024 10:00 EDT Ancillary Procedure [facility] Cardiology Clinic [address] [place] [address] 04/05/2024 10:00 EDT Office Visit [facility] Cardiology Clinic [address] [place] [address] Carlos Ha NP [address] [place] [address]-[address] [place] [phone] documented as of this encounter Visit Diagnoses Not on filedocumented in this encounter Care Teams Trial Justice Relationship Specialty Start Date End Date Bryant Crain MD [address] [place] [address] PCP - General 05/04/15 05/17/23 documented as of this encounter
--- OUTSIDE RECORDS SUMMARY | 2024-01-07 11:15 | XMS_ITS | Encounter Summary ---
Author Organization [facility] Address [address] [place] [address] Care Team Providers Care Pens And Pencils Repairer Name Role Phone Bryant Crain MD Primary Care Provider [phone] Reason for Visit * Reason Onset Date Comments Cardiac Testing 07/05/2019 Encounter Details Date Type Department Care Team (Late st Contact Info) Description 07/05/2019 Telephone [facility] Cardiology Clinic [address] [place] [address] Ana Epperson, ENROLLMENT MANAGEMENT DIRECTOR Cardiac Testing Social History Tobacco Use Types Packs/Day Years Used Date Smoking Tobacco: Never Assessed Sex and Gender Information Value Date Recorded Sex Assigned at Not on file Gender Identity Female 06/01/2019 10:00 EST Sexual Orientation Not on file documented as of this encounter Miscellaneous Notes * Telephone Encounter - Rea Ness RN - 08/04/2019 1127 EST Notified of echo results per Ana. She is currently in [place] and did not get my previous message * Telephone Encounter - Rea Ness RN - 07/18/2019 1222 EST Detailed message left for patient that echo is basically the same as previous per Ana. If she has further questions or concerns she is to call the office back. * Telephone Encounter - Ana Epperson, JUSTIN - 07/18/2019 1200 EST Please let pt. Know it is basically the same result as her previous Echo. Thanks Ana * Telephone Encounter - Nestor Espinosa - 07/18/2019 1027 EST Pt was IP at [facility]. She had an ECHO done while IP and is looking for Ana to review and let her know how compares to last ECHO done locally. documented in this encounter Plan of Treatment Upcoming Encounters Date Type Department Care Team (Late st Contact Info) Description 03/08/2024 9:30 EDT Ancillary Procedure [facility] Cardiology - [place] [address] [place] [address] 03/08/2024 10:15 EDT Ancillary Procedure [facility] Cardiology [place] [address] [place] [address] 04/05/2024 10:00 EDT Ancillary Procedure [facility] Cardiology Clinic [address] [place] [address] 04/05/2024 10:00 EDT Office Visit [facility] Cardiology Clinic [address] [place] [address] Carlos Ha NP [address] [place] [address] [address] [place] [phone] documented as of this encounter Visit Diagnoses Not on filedocumented in this encounter Care Teams Pens And Pencils Repairer Relationship Specialty Start Date End Date Bryant Crain MD [address] [place], [place] [phone] PCP - General 05/04/15 05/17/23 documented as of this encounter
--- OUTSIDE RECORDS SUMMARY | 2024-01-07 11:15 | XMS_ITS | Encounter Summary ---
Author Organization [facility] Address [address] [place] [address] Care Team Providers Care Static Balancer Name Role Phone Bryant Crain MD Primary Care Provider [phone] Reason for Visit * (Routine) - Closed Specialty Diagnoses / Procedures Referred By Charo daniel Referred To Contact Diagnoses Status post placement of implantable loop recorder Procedures CARDIAC IMPLANT CHECK - IN CLINIC Ana Epperson, MAT GAUGER [address] [facility] [address] [address] Referral ID Status Reason Start Date Expiration Date Visits Re quested Visits Authorized [id number] Closed 06/05/2019 1 1 Encounter Details Date Type Department Care Team (Late st Contact Info) Description 06/05/2019 10:00 EST Ancillary Procedure [facility] Cardiology Clinic [address] [place], [place] [address] Social History Tobacco Use Types Packs/Day Years Used Date Smoking Tobacco: Never Assessed Sex and Gender Information Value Date Recorded Sex Assigned at Not on file Gender Identity Female 06/01/2019 10:00 EST Sexual Orientation Not on file documented as of this encounter Plan of Treatment Upcoming Encounters Date Type Department Care Team (Late st Contact Info) Description 03/08/2024 9:30 EDT Ancillary Procedure [facility] Cardiology - [facility] [place], [place] [id number] 03/08/2024 10:15 EDT Ancillary Procedure [facility] Cardiology - [address], [place] [id number] 04/05/2024 10:00 EDT Ancillary Procedure [facility] Cardiology Clinic [address] [place], [place] [address] 04/05/2024 10:00 EDT Office Visit [facility] Cardiology Clinic [address] [place], [place] [address] Carlos Ha, RAHEEM 130 [facility] [address] [place] [address] documented as of this encounter Procedures Procedure Name Priority Date/Time Associated Diagnosis Comments CARDIAC IMPLANT CHECK - IN CLINIC Routine 06/05/2019 10:03 EST Status post placement of implantable loop recorder documented in this encounter Results * CARDIAC IMPLANT CHECK - IN CLINIC - LOOP RECORDER (ILR) W/ PROG (06/05/2019 10:03 EST) Anatomical Region Laterality Modality Device Narrative 06/05/2019 10:05 EST I have reviewed the pacemaker interrogation. ??I agree with the findings below. Procedure Note Ana Epperson, DISEASE MANAGEMENT NURSE - 06/05/2019 I have reviewed the pacemaker interrogation. I agree with the findingsbelow. Ana Epperson NP CV IMPLANTABLE CARDI AC DEVICE documented in this encounter Visit Diagnoses Not on filedocumented in this encounter Care Teams Static Balancer Relationship Specialty Start Date End Date Bryant Crain MD [address] [place] [address] PCP - General 05/04/15 05/17/23 documented as of this encounter
--- OUTSIDE RECORDS SUMMARY | 2024-01-07 11:15 | XMS_ITS | Encounter Summary ---
Author Organization [facility] Address [address] [place] [address] Care Team Providers Care Bias Machine Operator Name Role Phone Bryant Crain MD Primary Care Provider [phone] Reason for Visit * Reason Comments Follow-up Encounter Details Date Type Department Care Team (Latest Contact Info) Description 09/20/2020 12:00 EDT Telemedicine [facility] - [facility] Cardiology Clinic [address] [place] [address] Carlos Macario NP 130 [facility] [place] [address] Paroxysmal atrial fibrillation (HCC-CMS) (Primary Dx); Mixed hyperlipidemia; Dilated cardiomyopathy (HCC-CMS); Status post placement of implantable loop recorder Social History Tobacco Use Types Packs/Day Years [...] of this encounter Progress Notes * Carlos Macario, PATIENT ACCOUNTING REPRESENTATIVE - 09/20/2020 1200 EDT [facility] Telephone Visit The concept of ???Telemedicine?? has [...] CC: Follow-up HPI: This is a pleasant 70-year-old female who is scheduled for a telemedicine follow up visit. ?? Her past medical history is significant for paroxysmal atrial fibrillation (she has had no further episodes noted on her event since December 2018), [place] (1 episode August 2019 with negative MPI), hypertension, hyperlipidemia (LDL 49 in 08/2020. She has been intolerant to multiple statins), and type 2 diabetes. ?? She has a history of cryptogenic stroke in the fall 2016 with residual muscle weakness and balance issues. She uses a cane to walk. ?? She denies chest pain, shortness of breath, palpitations, orthopnea, PND, or syncope. ?? PMH: Past Medical History: Diagnosis Date ??? Cerebrovascular accident (CVA) ([facility]) 06/01/2019 ??? Diabetes mellitus, type 2 ([facility]) 01/26/2011 On metformin On metformin ??? Essential hypertension 06/01/2019 ??? Mixed hyperlipidemia 06/05/2019 ??? Nonrheumatic aortic valve stenosis 06/01/2019 ??? Paroxysmal atrial fibrillation ([facility]) 06/01/2019 SH/FH: reviewed and updated MEDICATIONS: Medications Prior to Today's Visit Medication Sig ??? acetaminophen (TYLENOL 8 HOUR) 650 mg CR tablet 2 tab(s) orally twice a day, only as needed ??? apixaban (ELIQUIS) 5 mg tablet Take 5 mg by mouth 2 times daily. ??? aspirin 81 mg EC tablet Take 81 mg by mouth daily. ??? blood-glucose meter (ONE TOUCH BASIC SYSTEM MIS) -to test blood sugar - - test 2 x daily ??? candesartan (ATACAND) 32 mg tablet Take 32 mg by mouth daily. ??? cetirizine (ZYRTEC) 10 mg tablet Take 10 mg by mouth daily. ??? dapagliflozin 5 mg tablet Take 5 mg by mouth. ??? gabapentin (NEURONTIN) 300 mg capsule Take 600 mg by mouth 2 times daily. ??? HUMALOG KWIKPEN INSULIN 100 unit/mL injectable pen 6-10 units tid with meals 100-150 2 units, 150-200 4 units 200-250 6 units 250-300 8 units ??? insulin glargine (LANTUS SOLOSTAR U-100 INSULIN) 100 unit/mL (3 mL) injection pen Inject 40 Units into the skin daily. ??? lactobacillus [...] TEST BLOOD GLUCOSE THREE TIMES DAILY ??? pimecrolimus (ELIDEL) 1 % cream 1 sylvain applied topically 2 times a day as needed in the winter only ??? REPATHA SYRINGE 140 mg/mL syringe INJECT 1 SYRINGE SUBCUTANEOUSLY EVERY 2 WEEKS ??? semaglutide (OZEMPIC) subcutaneous pen Inject 0.25 mg into the skin once a week. ??? UNIFINE PENTIPS No facility-administered medications prior [...] ??? Propoxyphene N-Acetaminophen Other reaction(s): Hallucinations ??? Fvtkklx-Lbw-Cpy Reductase Inhibitors ??? Trulicity [Dulaglutide] Gi Side effect ROS: The rest of the pertinent 10 point review of systems is negative other than mentioned in the HPI Objective: Examination: Home Vitals: No vitals available for this appointment. Pertinent exam findings patient can observe: Alert and orientated. NAD. Speaking in full sentences.Mood stable. [facility] Cardiology ILR Visit Business Applications Specialist: [employer] Device Type: Implantable loop recorder Service: Remote Indication: CVA Battery Longevity: good Symptom: 0 Tachycardia: 0 Bradycardia: 0 Pause: 1 (vagal episode at 830 in the morning lasting 4 seconds. Patient tells me she was sleeping.EGM reviewed with Dr. Paul). AF: 0 AF burden: none Data reviewed with patient: Reviewed and/or ordered active problem list, medication list, allergies, family history, social history, lab results, imaging tests DATA: ECHOCARDIOGRAM 04/29/2017: Severe LVH with hyperdynamic systolic function 65 to 70%. Mild aortic stenosis and mild aortic regurgitation. Mean gradient 11.4 mmHg. Peak velocity 2.2 m/s. JAC 1.5 cm??. Mild mitral regurgitation. RV wall moderately increased normal function. Lab Results Component Value Date HGB 13.4 03/15/2018 PLT 352 03/15/2018 CREATININE 0.92 11/23/2019 BUN 26 11/23/2019 CALCGFR >60 11/23/2019 K 5.1 (H) 11/23/2019 NA 137 11/23/2019 CHOL 255 (H) 06/05/2019 HDL 48 06/05/2019 LDL 156 (H) 06/05/2019 TRIG 256 06/05/2019 HGBA1C 8.4 (A) 07/10/2020 LABS 08/30/2020: BUN 20, creatinine 1.2, GFR 44.68, sodium 139, potassium 4.7, glucose 227 LABS 05/31/2021: Total cholesterol 129, triglycerides 233, HDL 42, LDL 49 ASSESSMENT: Problem List Items Addressed This Visit Cardiac/Vasculature Paroxysmal atrial fibrillation (HCC-CMS) - Primary She is appropriately anticoagulated for stroke risk reduction on Eliquis. Status post placement of implantable loop recorder There is adequate battery longevity. The leads are functioning normally. She did have 1 vasovagal foot episode lasting for seconds while she was sleeping. We did discuss sleep at apnea but she declined referral for sleep study. Mixed hyperlipidemia She is now on Repatha with LDL treated to target. Dilated cardiomyopathy (HCC-CMS) EF on MPI 45%. The patient tells me she did follow through with an echocardiogram but I do not see the results ordered in my electronic medical record. She thinks she may have had it done at [facility] look in their records. Carlos Macario APRN Patient initiated phone contact with the office: yes. Patient is an established patient (parent, guardian) yes. E/M provided within previous 7 days for same medical assessment: no Anticipate E/M service within 24hrs or next available urgent appointment no. This visit was conducted by telephone. I spent a total of 15 minutes in discussion with the patientas described in the progress note. * Nestor Espinosa - 09/20/2020 1200 EDT appt sched for 01/21/21; 1045 arrival with pt-faxed to [facility] Med Records to get ECHO and Lipids * Anatoliy Liu - 09/20/2020 1200 EDT Pt aware documented in this encounter Miscellaneous Notes * Assessment & Plan Note - Carlos Macario APRN - 10/06/2020 0952 EDTAssociated Problem(s): Paroxysmal atrial fibrillation (HCC-CMS) She is appropriately anticoagulated for stroke risk reduction on Eliquis. * Assessment & Plan Note - Carlos Macario APRN - 09/20/2020 1547 EDTAssociated Problem(s): Status post placement of implantable loop recorder (Resolved 01/05/2023) There is adequate battery longevity. The leads are functioning normally. She did have 1 vasovagal foot episode lasting for seconds while she was sleeping. We did discuss sleep at apnea but she declined referral for sleep study. * Assessment & Plan Note - Carlos Macario APRN - 09/20/2020 1547 EDTAssociated Problem(s): Mixed hyperlipidemia She is now on Repatha with LDL treated to target. * Assessment & Plan Note - Carlos Macario APRN - 09/20/2020 1545 EDTAssociated Problem(s): Dilated cardiomyopathy ([facility]) EF on MPI 45%. I had ordered a repeat echo and she thinks she had it done at [facility]. Our records showher last echo was in 2017. I am going to have her repeat the study. * Addendum Note - Carlos Macario APRN - 09/20/2020 1200 EDTAddended by: CARLOS MACARIO on: 10/06/2020 10:02 Modules accepted: Orders documented in this encounter Plan of Treatment Upcoming Encounters Date Type Department Care Team (Late st Contact Info) Description 03/08/2024 9:30 EDT Ancillary Procedure [facility] Cardiology - [facility] [place] [place] [address] 03/08/2024 10:15 EDT Ancillary Procedure [facility] Cardiology - [facility] [place] [address] 04/05/2024 10:00 EDT Ancillary Procedure [facility] [address], [place] [id number] 04/05/2024 10:00 EDT Office Visit [facility] [address] [facility] [place] [address] Carlos Macario NP 130 [facility] [place] [address] documented as of this encounter Visit Diagnoses Diagnosis Paroxysmal atrial fibrillation (HCC-CMS)- Primary Atrial fibrillation Mixed hyperlipidemia Dilated cardiomyopathy (HCC-CMS) Other primary cardiomyopathies Status post placement of implantable loop recorder Other specified cardiac device in situ documented in this encounter Care Teams Bias Machine Operator Relationship Specialty Start Date End Date Bryant Crain MD [address] [place] [address] PCP - General 05/04/15 05/17/23 documented as of this encounter
--- OUTSIDE RECORDS SUMMARY | 2024-01-07 11:15 | XMS_ITS | Encounter Summary ---
Author Organization [facility] Address [address] [place] [address] Care Team Providers Care Teacher'S Aide Name Role Phone Bryant Crain MD Primary Care Provider [phone] Reason for Visit * Reason Comments Pacemaker/Device Check 3 mos Encounter Details Date Type Department Care Team (Latest Contact Info) Description 02/23/2020 12:00 EDT Office Visit [facility]iology Clinic [address] [place], [place] [address] Carlos Macario NP 130 [facility] [place] [address] Status post placement of implantable loop recorder (Primary Dx); Paroxysmal atrial fibrillation (HCC-CMS); Nonrheumatic aortic valve stenosis; Mixed hyperlipidemia; Essential hypertension; Dilated cardiomyopathy (HCC-CMS); Ventricular tachycardia (HCC-CMS) Social History Tobacco Use Types Packs/Day [...] Sign Reading Time Taken Comments Blood Pressure 134/70 02/23/2020 1144 EDT Pulse 77 02/23/2020 1144 EDT Temperature - - Respiratory Rate - - Oxygen Saturation 97% 02/23/2020 1144 EDT Inhaled Oxygen Concentration - - Weight 75.5 kg (166 lb 6.4 oz) 02/23/2020 1144 E DT Height - - Body Mass Index 28.56 11/23/2019 0943 EDT documented in this encounter [...] of this encounter Progress Notes * Carlos Macario APRN - 02/23/2020 1200 EDT CC: Pacemaker/Device Check (3 mos ) HPI: This is a pleasant 69-year-old female who is here for a follow-up visit with program evaluation of her Medtronic loop recorder implanted for cryptogenic stroke. Her past medical history is significant for [...] She uses a cane to walk. She also struggles with comprehension. For instance, she tells me her favorite thing to do is read and she finds it difficult to follow along with a story. This is frustrating for her. She is swimming several times a week for physical rehab and doing well. She denies chest pain, shortness of breath, palpitations, orthopnea, PND, or syncope. 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 PMH: Past Medical History: Diagnosis Date ??? Cerebrovascular accident (CVA) ([facility]) 06/01/2019 ??? Diabetes mellitus, type 2 ([facility]) 01/26/2011 On metformin On metformin ??? Essential hypertension 06/01/2019 ??? Mixed hyperlipidemia 06/05/2019 ??? Nonrheumatic aortic valve stenosis 06/01/2019 ??? Paroxysmal atrial fibrillation (HCC-CMS) 06/01/2019 SH/FH: reviewed and updated MEDICATIONS: Medications Prior to Today's Visit Medication Sig ??? acetaminophen (TYLENOL 8 HOUR) 650 mg CR tablet 2 tab(s) orally twice a day, only as needed ??? acyclovir (ZOVIRAX) 400 mg tablet TK 1 T PO Q 8 H FOR 5 DAYS ??? apixaban (ELIQUIS) 5 mg tablet Take 5 mg by mouth 2 times daily. ??? aspirin 81 mg EC tablet Take 81 mg by mouth daily. ??? blood-glucose meter (ONE TOUCH BASIC SYSTEM MISC) -to test blood sugar - - test 2 x daily ??? candesartan (ATACAND) 32 mg tablet Take 32 mg by mouth daily. ??? cetirizine (ZYRTEC) 10 mg tablet Take 10 mg by mouth daily. ??? colchicine 0.6 mg capsule Take 0.6 mg by mouth. ??? dulaglutide (TRULICITY) 0.75 mg/0.5 mL subcutaneous pen 1 pen dose ??? FARXIGA 5 mg tablet Take 5 mg by mouth daily. ??? gabapentin (NEURONTIN) 300 mg capsule Take 600 mg by mouth 2 times daily. ??? insulin glargine (LANTUS SOLOSTAR U-100 INSULIN) 100 unit/mL (3 mL) injection pen Inject 36 Units into the skin daily. ??? lancets/blood glucose strips (ONE TOUCH COMBO MISC) -to test blood sugar - twice daily ??? magnesium oxide (MAG-OX) 400 mg (241.3 mg magnesium) tablet Take 400 mg by mouth daily. ??? metFORMIN (GLUCOPHAGE) 500 mg tablet Take 500 mg by mouth daily. Take a 500 mg tablet at bedtime with a 750 mg tablet. ??? metFORMIN (GLUCOPHAGE-XR) 750 mg ER tablet Take 750 mg by mouth daily. ??? nitrofurantoin, macrocrystal-monohydrate, (MACROBID) 100 mg capsule TK 1 C PO BID FOR ANTIBIOTIC TAKE WITH FOOD ??? pimecrolimus (ELIDEL) 1 % cream 1 sylvain applied topically 2 times a day as needed in the winter only ??? UNIFINE PENTIPS No facility-administered medications prior to visit. ALLERGIES: Allergies Allergen Reactions ??? Atenolol Other (See Comments) ??? Hydroxychloroquine Other reaction(s): Unknown ??? Iodine And Iodide Containing Products Hives ??? Lisinopril Other reaction(s): Unknown ??? Losartan Other reaction(s): Unknown ??? Oxycodone-Acetaminophen Other reaction(s): Hallucinations ??? Propoxyphene N-Acetaminophen Other reaction(s): Hallucinations ROS: The rest of the pertinent 10 point review of systems is negative other than mentioned in the HPI PHYSICAL EXAM: Vitals: 02/23/20 1144 BP: 134/70 Pulse: 77 SpO2: 97% Weight: 75.5 kg (166 lb 6.4 oz) GENERAL APPEARANCE: No acute distress HEENT: PERRLA. EOMI. Conjunctiva clear. Sclera anicteric NECK: Supple with full range of motion. No lymphadenopathy. No JVD/HJR CHEST: Normal shape and expansion HEART: Regular rate and rhythm no murmurs LUNGS: Clear to auscultation bilaterally, unlabored ABDOMEN: Soft, nontender, nondistended. Positive bowel sounds in all 4 quadrants. No hepatosplenomegaly EXTREMITIES: No clubbing, cyanosis, or edema. PERIPHERAL PULSES: Lower extremity pulses 2+ bilaterally NEUROLOGIC EXAM: Alert and oriented x3. Gait normal DATA: 1. MPI 01/15/2020: Impressions: Normal perfusion by [id number] [...] Sinus bradycardia with 1degrees AV block and anonspecific intraventricular conduction defect. Lab Results Component Value Date HGB 13.4 03/15/2018 PLT 352 03/15/2018 CHOL 255 (H) 06/05/2019 HDL 48 06/05/2019 LDL 156 (H) 06/05/2019 TRIG 256 06/05/2019 [facility] [place] Visit Tabulating Clerk: Audicus Device Type: Implantable loop recorder Service: Office Visit Implant Date: Indication: Cryptogenic CVA Battery Longevity: GOOD Symptom: 0 Tachycardia: 0 Bradycardia: 0 Pause: 0 AF: 0 ASSESSMENT: Problem List Items Addressed This Visit Cardiac/Vasculature Essential hypertension Well-controlled. Nonrheumatic aortic valve stenosis Echo pending Paroxysmal atrial fibrillation (HCC-CMS) No further episodes noted on program evaluation of her loop recorder. She is appropriately anticoagulated for stroke risk reduction. Status post placement of implantable loop recorder - Primary There is adequate battery longevity. The leads and device are functioning normally. No concerning arrhythmia noted. Mixed hyperlipidemia Her last lipid profile shows an LDL of 156 which is above her target for her cardiovascular risk. She has been intolerant to multiple statins which cause severe muscle cramping. Given her risk and comorbidities, I recommend considering starting PSC K9 inhibitor with a goal to target her LDL less than 70. She is scheduled to see her PCP next week and would like to discuss this option. I have told her that I would be happy to assist with prior authorization if necessary. Prior to initiation I would recommend an updated lipid and liver profile. Ventricular tachycardia (HCC-CMS) No further episodes noted on program evaluation today. Normal MPI. However, I noted that her EF wasmoderately reduced at 45%. I am going to order an echo for re--evaluation of her LVEF. Dilated cardiomyopathy (HCC-CMS) EF on MPI 45%. Will re-evaluated with echo. CARLOS MACARIO APRN * Fan Schaefer RN - 02/23/2020 1200 EDT Left detailed msg for pt that echo was ordered and someone would contact to schedule. documented in this encounter Miscellaneous Notes * Assessment & Plan Note - Carlos Macario APRN - 02/23/2020 1323 EDTAssociated Problem(s): Dilated cardiomyopathy (HCC-CMS) EF on MPI 45%. Will re-evaluated with echo. * Assessment & Plan Note - Carlos Macario APRN - 02/23/2020 1322 EDTAssociated Problem(s): Nonrheumatic aortic valve stenosis (Resolved 03/14/2021) Echo pending * Assessment & Plan Note - Carlos Macario APRN - 02/23/2020 1321 EDTAssociated Problem(s): Status post placement of implantable loop recorder (Resolved 01/05/2023) There is adequate battery longevity. The leads and device are functioning normally. No concerning arrhythmia noted. * Assessment & Plan Note - Carlos Macario APRN - 02/23/2020 1316 EDTAssociated Problem(s): Mixed hyperlipidemia Her last lipid profile shows an LDL of 156 which is above her target for her cardiovascular risk. She has been intolerant to multiple statins which cause severe muscle cramping. Given her risk and comorbidities, I recommend considering starting PSC K9 inhibitor with a goal to target her LDL less than 70. She is scheduled to see her PCP next week and would like to discuss this option. I have told her that I would be happy to assist with prior authorization if necessary. Prior to initiation I would recommend an updated lipid and liver profile. * Assessment & Plan Note - Carlos Macario APRN - 02/23/2020 1315 EDTAssociated Problem(s): Essential hypertension Well-controlled. * Assessment & Plan Note - Carlos Macario APRN - 02/23/2020 1315 EDTAssociated Problem(s): Paroxysmal atrial fibrillation ([facility]) No further episodes noted on program evaluation of her loop recorder. She is appropriately anticoagulated for stroke risk reduction. * Assessment & Plan Note - Carlos Macario APRN - 02/23/2020 1314 EDTAssociated Problem(s): Ventricular tachycardia (HCC-CMS) No further episodes noted on program evaluation today. Normal MPI. However, I noted that her EF wasmoderately reduced at 45%. I am going to order an echo for re--evaluation of her LVEF. documented in this encounter Plan of Treatment Upcoming Encounters Date Type Department Care Team (Late st Contact Info) Description 03/08/2024 9:30 EDT Ancillary Procedure [facility] - [address] [place] [address] 03/08/2024 10:15 EDT Ancillary Procedure [facility] [address] [place] [address] 04/05/2024 10:00 EDT Ancillary Procedure [facility] [address] [place] [id number] 04/05/2024 10:00 EDT Office Visit [facility] [address] [place] [address] Carlos Macario, REPORTING SPECIALIST [address] [place] [address] [place] [phone] documented as of this encounter Visit Diagnoses Diagnosis Status post placement of implantable loop recorder- Primary Other specified cardiac device in situ Paroxysmal atrial fibrillation (HCC-CMS) Atrial fibrillation Nonrheumatic aortic valve stenosis Aortic valve disorders Mixed hyperlipidemia Essential hypertension Unspecified essential hypertension Dilated cardiomyopathy (HCC-CMS) Other primary cardiomyopathies Ventricular tachycardia (HCC-CMS) Paroxysmal ventricular tachycardia documented in this encounter Historical Medications * This list may reflect changes made after this encounter. Medication Sig Dispensed Refills Start Date End Date acyclovir (ZOVIRAX) 400 mg tablet TK 1 T PO Q 8 H FOR 5 DAYS 02/14/2020 07/10/2020 colchicine 0.6 mg capsule Take 0.6 mg by mouth. 12/26/2018 07/10/2020 added in this encounter Care Teams Teacher'S Aide Relationship Specialty Start Date End Date Bryant Crain MD [address] [place], [place] [id number] PCP - General 05/04/15 05/17/23 documented as of this encounter
--- OUTSIDE RECORDS SUMMARY | 2024-01-07 11:15 | XMS_ITS | Encounter Summary ---
Author Organization [facility] Address [address] [place] [address] Care Team Providers Care Driller'S Offsider Name Role Phone Bryant Crain MD Primary Care Provider [phone] Reason for Visit * (Routine) - Order Cancelled Specialty Diagnoses / Procedures Referred By Charo daniel Referred To Contact Diagnoses Status post placement of implantable loop recorder Procedures CARDIAC IMPLANT CHECK - IN CLINIC Ana Epperson, TRANSPORT ENGINEER [address] [facility] [address] [address] Referral ID Status Reason Start Date Expiration Date V isits Requested Visits Authorized [id number] Order Cancelled 06/05/2019 1 1 Encounter Details Date Type Department Care Team (Latest Contact Info) Description 11/23/2019 9:45 EDT Ancillary Procedure [facility] [address] [place] [address] Status post placement of implantable loop recorder [...] Ancillary Procedure [facility]iology - [facility] [address] [place] [address] 03/08/2024 10:15 EDT Ancillary Procedure [facility] - [facility] [address] [place] [address] 04/05/2024 10:00 EDT Ancillary Procedure [facility] [address] [place] [id number] 04/05/2024 10:00 EDT Office Visit [facility] [address] [place] [id number] Carlos Ha NP 130 [facility] [place] [phone] Pending Results Name Type Priority Associated Diagnoses Date /Time CARDIAC IMPLANT CHECK - IN CLINIC Implantable Cardiac Device Routine Status post placement of implantable loop recorder 11/27/2019 13:08 EDT documented as of this encounter Visit Diagnoses Diagnosis Status post placement of implantable loop recorder Other specified cardiac device in situ documented in this encounter Care Teams Driller'S Offsider Relationship Specialty Start Date End Date Bryant Crain MD [address] [place] [address] PCP - General 05/04/15 05/17/23 documented as of this encounter
--- OUTSIDE RECORDS SUMMARY | 2024-01-07 11:15 | XMS_ITS | Encounter Summary ---
Author Organization [facility] Address [address] [place] [address] Care Team Providers Care Hides Inspector Name Role Phone Bryant Crain MD Primary Care Provider [phone] Encounter Details Date Type Department Care Team (Late st Contact Info) Description 07/10/2020 Orders Only [facility] [address] [place], [place] [id number] Carlos Ha, RAHEEM [address] [facility] [address] [place] [address] Cryptogenic stroke (HCC-CMS) (Primary Dx) [...] Exposure Response Date Recorded In the last month, have you been in contact with someone who was confirmed or suspected to have Coronavirus / COVID-19? No / Unsure 07/10/2020 11:07 EST documented as of this encounter Functional Status [...] Info) Description 03/08/2024 9:30 EDT Ancillary Procedure [facility] Cardiology - [facility] [address] [place] [address] 03/08/2024 10:15 EDT Ancillary Procedure [facility] Cardiology - [facility] [address] [place] [address] 04/05/2024 10:00 EDT Ancillary Procedure [facility] [address] [place] [id number] 04/05/2024 10:00 EDT Office Visit [facility] [address] [place] [address] Carlos Ha NP [address] [place] [address] [address] [place] [address] documented as of this encounter Procedures Procedure Name Priority Date/Time Associated Diagnosis Comments CARDIAC IMPLANT CHECK - REMOTE MONITOR Routine 07/11/2020 12:43 EST Cryptogenic stroke ([facility]-CMS) documented in this encounter Results * CARDIAC IMPLANT CHECK - REMOTE - LOOP RECORDER (ILR) (07/11/2020 12:43 EST) Anatomical Region Laterality Modality Device Narrative 07/11/2020 12:43 EST Remote transmission of ILR reviewed. Good battery status. No arrhythmias, no symptoms. See scanned documents for full details. Procedure Note Orquidea Bowers APRN - 07/11/2020 Remote transmission of ILR reviewed. Good battery status. No arrhythmias,no symptoms. See scanned documents for full details. Carlos Ha NP CV IMPLANTABLE CARDI AC DEVICE documented in this encounter Visit Diagnoses Diagnosis Cryptogenic stroke (HCC-CMS)- Primary Unspecified cerebral artery occlusion with cerebral infarction documented in this encounter Care Teams Hides Inspector Relationship Specialty Start Date End Date Bryant Crain MD [address] [place] [address] PCP - General 05/04/15 05/17/23 documented as of this encounter
--- OUTSIDE RECORDS SUMMARY | 2024-01-07 11:15 | XMS_ITS | Encounter Summary ---
Author Organization [facility] Address [address] [place] [address] Care Team Providers Care Rental Car Deliverer Name Role Phone Bryant Crain MD Primary Care Provider [phone] Encounter Details Date Type Department Care Team (Late st Contact Info) Description 07/17/2019 Orders Only [facility] Card[facility] Clinic [address] [place] [address] Ana Epperson, RAHEEM Status post placement [...] Info) Description 03/08/2024 9:30 EDT Ancillary Procedure [facility] Cardiology - [facility] [place] [address] 03/08/2024 10:15 EDT Ancillary Procedure [facility] Cardiology - [facility] [address] [place], [place] [id number] 04/05/2024 10:00 EDT Ancillary Procedure [facility] Clinic [address] [place] [address] 04/05/2024 10:00 EDT Office Visit [facility] [address] [place] [address] Carlos Ha, VULNERABILITY ASSESSMENT ANALYST [address] [facility] [address] [place] [address] documented as of this encounter Procedures Procedure Name Priority Date/Time Associated Diagnosis Comments CARDIAC IMPLANT CHECK - REMOTE MONITOR Routine 07/17/2019 12:49 EST Status post placement of implantable loop recorder documented in this encounter Results * CARDIAC IMPLANT CHECK - REMOTE - LOOP RECORDER (ILR) (07/17/2019 12:49 EST) Anatomical Region Laterality Modality Device Narrative 07/17/2019 12:49 EST Remote transmission of ILR reviewed. Good battery status. No arrhythmias, no symptoms. See scanned documents for full details. Procedure Note ElissaOrquideaJUSTIN - 07/17/2019 Remote transmission of ILR reviewed. Good battery status. No arrhythmias,no symptoms. See scanned documents for full details. Ana A Zeenat VULNERABILITY ASSESSMENT ANALYST CV IMPLANTABLE CARDI AC DEVICE documented in this encounter Visit Diagnoses Diagnosis Status post placement of implantable loop recorder- Primary Other specified cardiac device in situ documented in this encounter Care Teams Rental Car Deliverer Relationship Specialty Start Date End Date Bryant Crain MD [address] [place], [place] [id number] PCP - General 05/04/15 05/17/23 documented as of this encounter
--- OUTSIDE RECORDS SUMMARY | 2024-01-07 11:15 | XMS_ITS | Encounter Summary ---
Author Organization [facility] Address [address] [place] [address] Care Team Providers Care Custom Shop Worker Name Role Phone Bryant Crain MD Primary Care Provider [phone] Reason for Visit * Reason Comments Diabetes Encounter Details Date Type Department Care Team (Latest Contact Info) Description 08/07/2020 13:45 EST Office Visit [facility] Endocrinology [address] [place] [address] Sarika Zamudio, TOBACCO FARMWORKER [address] [facility] [place] [address] Type 2 diabetes mellitus with hyperglycemia, with long-term current use of insulin ([facility]) (Primary Dx); Stage 3b chronic kidney disease; Essential hypertension; Mixed hyperlipidemia Social History Tobacco [...] 11:07 EST documented as of this encounter Last Filed Vital Signs Vital Sign Reading Time Taken Comments Blood Pressure 138/72 08/07/2020 1443 EST Pulse 76 08/07/2020 1340 EST Temperature - - Respiratory Rate 16 08/07/2020 1340 EST Oxygen Saturation - - Inhaled Oxygen Concentration - - Weight 76.2 kg (168 lb) 08/07/2020 1340 EST Height - - Body Mass Index 28.84 [...] * Patient Instructions* Sarika Zamudio APRN - 08/07/2020 13:45 EST Start ozempic 0.25 mg weekly dose. Pending tolerability will increase to 0.5mg after 1 month. Inject into buttocks or inner thigh. Once starting the ozempic will decrease sliding scale: 100-150 3 units, 150-200 8 units, 200-250 5 units, 250-300 6 units Continue lantus 45 units AM Metformin XR 750 mg BID. Continue checking blood sugar's 4X/day. Call me after 1 month on the ozempic with blood sugar readings. Follow-up in clinic in 2 months. documented in this encounter Ordered Prescriptions Prescription Sig Dispensed Refills Start Date End Da te semaglutide (OZEMPIC) subcutaneous penIndications:Type 2 diabetes mellitus with hyperglycemia, with long-term current use of insulin ([facility]) Inject 0.25 mg into the skin once a week. 2 Pen 3 08/07/2020 10/02/2020 documented in this encounter Progress Notes * Heidi Moore RN - 08/07/2020 1345 EST A1c done Needs eye exam Letter sent Lab Results Component Value Date UABCR 375.4 07/10/2020 HGBA1C 8.4 (A) 07/10/2020 Glucose-108 * Marcellusambrosejustin Sarika M, BILL RECAPITULATION CLERK - 08/07/2020 1345 EST Reason for Visit: DM f/up PCP: Dr. Crain OTHER PROVIDERS: Carlos Ha NP cardiology Joanna Hart is a 70 y.o. female who presented to the clinic for a follow-up in [facility], with a history of DM for 14 yrs. Hx of HTN, PAF, HLT, cardiomyopathy, CVA X2 2019, hypomag. She lives with her at home. She has started taking repatha for the past 6 months or so and feels her BG's have increase since this. Random BG in clinic today 108. She reports misunderstanding directions on the humalog and was taking correction doses before goingto bed. She has since stopped this as she was going low overnight. She went away last week for about 4 days to take care of her grandkids. This disrupted her routine,did not check BG's or take insulin regularly. Overall she does well with the sliding scale. Typically takes 6-8 units of humalog. She does verbalize wanting to get off of the humalog, feels this has caused her to gain weight. She is not interested in [facility] DM: unsure if father had DM 4 of her siblings have [facility] Recent A1C: 8.4 (06/2020) Diabetic Medications: lantus 45 units AM Metformin XR 750 mg twice daily. humalog SS for meals: 100-150 6 units, 150-200 8 units, 200-250 10 units, 250- 300 12 units Farxiga and trulicity/victoza intolerant-gave her [...] half sandwich WW w/ cold cuts/cheese/lettuce/tomato, salad Dinner: protein: chicken/steak/meatloaf Vegetable: salad, green beans, corn, broccoli, carrots starch: potato, bread, rice Snacks: popcorn, cheese/crackers, peanuts *will have more snacks after dinner/evening Beverages: water, no etoh Exercise: swimming when able. Limited at this time. Has PT exercises she does do. Diabetes Related Problems Eye exam current (within one year): overdue. Has provider in [place] that she prefers. Has not been ableto go d/t COVID. No symptoms at this time. Last dental exam: overdue. Will schedule. CVD,PVD,CAD: HTN, HLD,CVA Statin: repatha injections. Aspirin: yes ACEI/ARB: candesartan 32 mg Prior visit with books binder: yes, JALEN Hyman. Foot care: self, would like to see podiatry. Comorbidities: Retinopathy: no Nephropathy/Kidney function: GFR 44 [...] % Final No results found for: MICROALBUR, [id number] Lab Results Component Value Date NA 137 11/23/2019 K 5.1 (H) 11/23/2019 CL 108 11/23/2019 CO2 20 (L) 11/23/2019 BUN 26 11/23/2019 GLU 199 (H) 11/23/2019 CA 11.2 (H) 11/23/2019 Joanna Hart is a 70 y.o. female who presented to the clinic for a follow-up in [facility], with a history of DM for 14 yrs. Problem List Items Addressed This Visit Endocrine/Metabolic Diabetes mellitus, type 2 ([facility]) - Primary Uncontrolled A1C 8.4 Start ozempic 0.25 mg weekly dose. Pending tolerability will increase to 0.5mg after 1 month. Once starting the ozempic will decrease sliding scale: 100-150 3 units, 150-200 8 units, 200-250 5 units, 250-300 6 units Continue lantus 45 units AM Metformin XR 750 mg BID. Continue checking BG's 4X/day. Call me after 1 month on the ozempic with blood sugar readings. Pending these readings and tolerability will stop humalog and increase ozempic. Follow-up in clinic in 2 months. Has visit next week with podiatry in [facility] with Dr. Novoa. Relevant Medications dapagliflozin 5 mg tablet semaglutide (OZEMPIC) subcutaneous pen Genitourinary/Reproductive Stage 3b chronic kidney disease Doing well on lower dose metformin. Continue candesartan 32 mg. Will recheck GFR at f/up. Discussed nephrology consult pending results. MALB 340. Cardiac/Vasculature Essential hypertension Normotensive upon recheck. Continue current regimen. Mixed hyperlipidemia Controlled on repatha Patient Goals: A1C <7.5% Exercise: 150 minutes of CV exercise/week. Handouts provided for ongoing self education I spent a total of 35 minutes on the date of this encounter meeting with the patient and reviewing documentation/coordinating care as described in the above note. documented in this encounter Miscellaneous Notes * Assessment & Plan Note - Sarika Zamudio APRN - 08/07/2020 1456 EST Associated Problem(s): Mixed hyperlipidemia Controlled on repatha * Assessment & Plan Note - Sarika Zamudio APRN - 08/07/2020 1456 EST Associated Problem(s): Essential hypertension Normotensive upon recheck. Continue current regimen. * Assessment & Plan Note - Sarika Zamudoi APRN - 08/07/2020 1455 EST Associated Problem(s): Stage 3b chronic kidney disease ([facility]) Doing well on lower dose metformin. Continue candesartan 32 mg. Will recheck GFR at f/up. Discussed nephrology consult pending results. MALB 340. * Assessment & Plan Note - Sarika Zaumdio APRN - 08/07/2020 1418 EST Associated Problem(s): Diabetes mellitus, type 2 ([facility]) Uncontrolled A1C 8.4 Start ozempic 0.25 mg weekly dose. Pending tolerability will increase to 0.5mg after 1 month. Once starting the ozempic will decrease sliding scale: 100-150 3 units, 150-200 8 units, 200-250 5 units, 250-300 6 units Continue lantus 45 units AM Metformin XR 750 mg BID. Continue checking BG's 4X/day. Call me after 1 month on the ozempic with blood sugar readings. Pending these readings and tolerability will stop humalog and increase ozempic. Follow-up in clinic in 2 months. Has visit next week with podiatry in [facility] with Dr. Novoa. documented in this encounter Plan of Treatment Upcoming Encounters Date Type Department Care Team (Late st Contact Info) Description 03/08/2024 9:30 EDT Ancillary Procedure [facility] [place] [address] 03/08/2024 10:15 EDT Ancillary Procedure [facility] [place] [address] 04/05/2024 10:00 EDT Ancillary Procedure [facility] [address] [place] [address] 04/05/2024 10:00 EDT Office Visit [facility] [address] [place] [address] Carlos Ha NP [address] [facility] [address] [place] [address] documented as of this encounter Visit Diagnoses Diagnosis Type 2 diabetes mellitus with hyperglycemia, with long-term current use of insulin ([facility])- Primary Stage 3b chronic kidney disease ([facility]) Essential hypertension Unspecified essential hypertension Mixed hyperlipidemia documented in this encounter Discontinued Medications Medication Sig Discontinue Reason Start Date End Da te metFORMIN (GLUCOPHAGE) 500 mg tablet Take 500 mg by mouth daily. Take a 500 mg tablet at bedtime with a 750 mg tablet. Dose adjustment 08/07/2020 documented as of this encounter Historical Medications * This list may reflect changes made after this encounter. Medication Sig Dispensed Refills Start Date End Date lactobacillus combination no.8 3 billion cell capsule Take 1 Capsule by mouth daily. 01/18/2020 dapagliflozin 5 mg tablet Take 5 mg by mouth. 10/25/19 20 10/02/2020 added in this encounter Care Teams Custom Shop Worker Relationship Specialty Start Date End Date Bryant Crain MD [address] [place], [place] [id number] PCP - General 05/04/15 05/17/23 documented as of this encounter
--- OUTSIDE RECORDS SUMMARY | 2024-01-07 11:15 | XMS_ITS | Encounter Summary ---
Author Organization [facility] Address [address] [place] [address] Care Team Providers Care Rehabilitation Inspector Name Role Phone Bryant Crain MD Primary Care Provider [phone] Carlos Ha PARAMEDIC SUPERVISOR Unavailable Elba Jett MD Primary Care Provider [phone] Encounter Details Date Type Department Care Team (Late st Contact Info) Description 08/31/2020 Lab Requisition [facility] Pathology & Laboratory Medicine - [address] [address] Outr Resulting Lab, Provider Social [...] Procedure [facility] Cardiology - [facility] [address] [place], [place] [id number] 03/08/2024 10:15 EDT Ancillary Procedure [facility] Cardiology - [facility] [address] [place], [place] [id number] 04/05/2024 10:00 EDT Ancillary Procedure [facility] Cardiology Clinic [address] [place] [id number] 04/05/2024 10:00 EDT Office Visit [facility] Cardiology Clinic [address] [place] [id number] Carlos Ha NP [address] [facility] [address] documented as of this encounter Procedures Procedure Name Priority Date/Time Associated Diagnosis Comments PTH INTACT Routine 08/30/2020 11:15 EST documented in this encounter Results * (ABNORMAL) PTH INTACT (08/30/2020 11:15 EST) Intact PTH 100(H) 19 - 88 pg/mL 09/02/2020 9:28 EDT [facility] Blood VENOUS BLOOD / Unknown 08/30/2020 11:15 EST 09/01/2020 16:27 EDT Provider Outr Resulting Lab CHEMISTRY & BLOOD GAS ORDERABLES [facility] [address] [place] [address] documented in this encounter Visit Diagnoses Not on filedocumented in this encounter Care Teams Rehabilitation Inspector Relationship Specialty Start Date End Date Bryant Crain MD [address] [place], [place] [id number] PCP - General 05/04/15 05/17/23 Elba Jett MD [address] [place] [phone] PCP - General Family Medicine - Primary Care 05/18/23 Carlos Ha NP [address] [place] [address] [phone] Consulting Clinician Cardiovascular Disease 09/14/21 documented as of this encounter
--- OUTSIDE RECORDS SUMMARY | 2024-01-07 11:15 | XMS_ITS | Encounter Summary ---
Author Organization [facility] Address [address] [place] [address] Care Team Providers Care Product Marketing Analyst Name Role Phone Bryant Crain MD Primary Care Provider [phone] Reason for Referral * Cardiology (3 - 10 Business Days) - Specialty Report Received Specialty Diagnoses / Procedures Referred By Charo daniel Referred To Contact Nuclear Medicine Diagnoses Chest pain, unspecified type Procedures NM CARD SPECT NUCLEAR STRESS [facility] [address] [place], [place] [address] Referral ID Status Reason Start Date Expiration Date V isits Requested Visits Authorized [id number] Specialty Report Received 11/28/2019 01/11/2020 1 1 * Cardiology (Urgent) - Closed Specialty Diagnoses / Procedures Referred By Charo daniel Referred To Contact Nuclear Medicine Diagnoses [place] (ventricular tachycardia) ([facility]) Procedures NM CARD SPECT NUCLEAR STRESS [facility] [address] [place] [id number] Referral ID Status Reason Start Date Expiration Date Visits Re quested Visits Authorized [id number] Closed 11/27/2019 01/11/2020 1 1 Reason for Visit * Reason Comments Follow-up Cardiac Clearance Encounter Details Date Type Department Care Team (Late st Contact Info) Description 11/23/2019 9:45 EDT Office Visit [facility] [address] [place] [address] Ana Epperson, INSPECTOR EYEGLASS Paroxysmal atrial fibrillation (HCC-CMS) (Primary Dx); Status post placement of implantable loop recorder; Current use of usp 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; Mixed hyperlipidemia; VT (ventricular tachycardia) (HCC-CMS); Chest pain, unspecified type Social History Tobacco Use Types Packs/Day Years Used Date Smoking Tobacco: Never Smokeless Tobacco: Never Sex and Gender Information Value Date Recorded Sex Assigned at Not on file Gender Identity Female 06/01/2019 10:00 EST Sexual Orientation Not on file documented as of this encounter Last Filed Vital Signs Vital Sign Reading Time Taken Comments Blood Pressure 144/68 11/23/2019 0943 EDT Pulse 72 11/23/2019 0943 EDT Temperature - - Respiratory Rate - - Oxygen Saturation 94% 11/23/2019 0943 EDT Inhaled Oxygen Concentration - - Weight 74.2 kg (163 lb 8 oz) 11/23/2019 0943 EDT Height 162.6 cm (5' 4) 11/23/2019 0943 EDT Body Mass Index 28.06 11/23/2019 0943 EDT documented in this encounter [...] as of this encounter Progress Notes * Ana Epperson, POSTER - 11/23/2019 0945 EDT CC: Follow-up (Cardiac Clearance ) HPI: Joanna Hart is a 69 y.o. year-old female I am seeing for a preop visit for surgical excision of anasal squamous cell cancer to be done by Dr Peterson either at [facility] or [facility]. Date is not scheduled yet. She is also here For f/u of her loop recorder/REVEAL device for Hx. cryptogenic stroke; Dr. Paul implanted 11/09/17; hx. CVA Fall of 2016; says she never had any symptoms. Hx: December 24, 2018 she awoke with PND, went to hospital in [place] for 3 days; says she was very sick; confused, high white count; also had GI distress and UTI. Was told she was in AF. She ultimately had IV antibiotics and recovered. Has not felt dyspneic or had PND since. ROS: Denies: SOB, RODRIGUEZ, orthopnea, PND, palps., wt. Gain, LE edema. She has skin cancer on nose and she needs surgery; she is afraid stating she has a recurring dream where she dies when given anesthesia. She continues to have some balance issues from her old CVA; she uses a cane to walk. She was exercising daily in the pool while in [place] but hasn't for one month given pandemic. Hx: Called pt. 09/15/19 regarding her REVEAL transmission and arrythmia. She was in [place]. Explained she had an 8 sec. VT run had on 09/12 and that we would recommend low dose metoprolol and ischemicworkup. She has been totally asymptomatic; denies CP, palps, dizziness, etc. However, one day she thought she was having another stroke; says her leg went to sleep and when she stood to walk, her foot dragged. Apparently she had had her legs crossed for some time. She ultimately went to [facility] in [facility] and had w/u which was neg. For CVA. This did not correspond with the documented VT episode. She did not want to start a new med. Until she gets back home; same with any testing. I had her send another trasmission and no further VT episodes were seen. She has been sending weekly since and nofurther episodes have been noted. The rest if the pertinent 10 point review of systems is negative other than mentioned in HPI PMH: Patient Active Problem List Diagnosis ??? Cerebrovascular accident (CVA) (HCC-CMS) ??? Current use of usp 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 ??? manager terminal current use of insulin (HCC-CMS) ??? Dyslipidemia ??? Essential hypertension ??? Nonrheumatic aortic valve stenosis ??? Paroxysmal atrial fibrillation (HCC-CMS) ??? Status post placement of implantable loop recorder ??? Diabetes mellitus, type 2 (HCC-CMS) ??? Rosacea ??? Dyspnea ??? Hypomagnesemia ??? Mixed hyperlipidemia ??? [place] (ventricular tachycardia) ([facility]) SH/FH: reviewed and updated MEDICATIONS: Current Outpatient Medications on File Prior to Visit Medication Sig Dispense Refill ??? acetaminophen (TYLENOL [...] Take 10 mg by mouth daily. ??? dulaglutide (TRULICITY) 0.75 mg/0.5 mL subcutaneous [...] the winter only ??? UNIFINE PENTIPS No current facility-administered medications on file prior to visit. ALLERGIES: Allergies Allergen Reactions ??? Atenolol Other (See Comments) ??? Hydroxychloroquine Other reaction(s): Unknown ??? Iodine And Iodide Containing Products Hives ??? Lisinopril Other reaction(s): Unknown ??? Losartan Other reaction(s): Unknown ??? Oxycodone-Acetaminophen Other reaction(s): Hallucinations ??? Propoxyphene N-Acetaminophen Other reaction(s): Hallucinations PHYSICAL EXAM: Vitals: 11/23/19 0943 BP: (!) 144/68 Pulse: 72 SpO2: 94% Weight: 74.2 kg (163 lb 8 oz) Height: 162.6 cm (64) GENERAL APPEARANCE: WD,WN, in NAD, pleasant and cooperative, somewhat nervous, NEURO: A & O x3 HEENT: PERRLA. EOMI. Conjunctiva clear. Sclera anicteric NECK: Supple; No lymphadenopathy. No JVD/HJR, no thyromegaly CHEST: Normal shape and expansion HEART: Regular rate and rhythm, no murmurs, rubs or gallops LUNGS: Clear to auscultation bilaterally, unlabored breathing ABDOMEN: Soft, NT,ND, + bowel sounds x4 quadrants. No HSM EXTREMITIES: No clubbing, cyanosis, or edema. MSK: gait slow and improving status post CVA PERIPHERAL PULSES: radial 2+ bilaterally SKIN: warm, dry, without lesions,rashes Device: Brand: [employer] REVEAL Implanted: 11/09/[address] Paul for cryptogenic stroke Mode: monitoring, presenting rhythm appears regular Generator: good Optivol: N/A Monitored Events: None Reprogramming: none Impression: Normal function with no arrhythmias since the 09/12 episode of VT DATA: [place] [facility] with first degree AV block, left axis deviation, LVH with repolarization abnormalities Echocardiogram: Stress testing: Lab Results Component Value Date HGB 13.4 03/15/2018 PLT 352 03/15/2018 CREATININE 1.02 06/05/2019 BUN 26 11/23/2019 CALCGFR >60 11/23/2019 K 5.1 (H) 11/23/2019 NA 137 11/23/2019 CHOL 255 (H) 06/05/2019 HDL 48 06/05/2019 LDL 156 (H) 06/05/2019 TRIG 256 06/05/2019 TSH 2.80 11/23/2019 ASSESSMENT: 1. Paroxysmal atrial fibrillation (HCC-CMS) There have been no further PAF episodes noted on patient's reveal device. However, she did have a V. tach episode as noted above on September 12. Considering she is going for surgery, will go ahead and get nuclear stress test to assure no ischemia which may need treating prior to her procedure. She agrees with plan. We will also check labs to assure no electrolyte abnormalities. 2. Status post placement of implantable loop recorder - Primary Pt's REVEAL LINQ loop recorder is functioning normally. PAF noted during December. No further A. fib episodes noted. That was the first episode we have detected. One VT episode as noted on09/13/19. As far she can recall she was asymptomatic. No further arrhythmias have been noted. There is ample generator life remaining. See scanned documents for interrogation details. Will continue tomonitor.?Also getting labs and nuclear stress test. 3. Mixed hyperlipidemia Pt's lipids are mild to moderately elevated. She has not tolerated any statins nor Zetia in the past and does not want to take any meds. For this. I did discuss PCSK9 inhibitor therapy but would haveher see lipid specialist for this if she chooses. She is not interested at this time. CAD risk factors: HTN, CVA, HLD, DM, ?FH Pt's 10 yr. ASCVD risk is 24% compared to optimal of 5.0%. (2013 lipid guidelines based on ACC/AHA) 4. Current use of usp 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 Patient is taking and tolerating apixaban without overt signs of bleeding. I advised her she will need to stop her Eliquis 3 days prior to her procedure and may restart it either on the evening of the procedure or the day after depending on how the surgery goes. 5. Hypomagnesemia We will go ahead and check magnesium level today as she is taking an oral supplement. 6. Ventricular Tachycardia Have scheduled patient for nuclear stress test to assure no ischemia given the episode of V. tach noted on her loop recorder on September 12 and risk factors for CAD. Also checking labs for electrolyte imbalances. We will follow-up with those results prior to her having surgery. Pt's 10 yr. ASCVD risk is 24% compared to optimal of 5.0%. (2013 lipid guidelines based on ACC/AHA) Other: Regarding patient's surgery: Functional capacity is at least 4 METS; surgery is considered low riskfor MACE. Her revised cardiac risk index score is approximately a 6% rate of cardiac complication because of her cerebrovascular disease and insulin dependent diabetes. Will see what nuclear stress test shows before releasing for surgery. 12/05/19: 15:20:Call to pt. To discuss nuclear stress test results which were negative for any perfusion defects. EF: 45%, no WMA. I advised her she can have her surgery and we'll send note. Ana Epperson APRN documented in this encounter Miscellaneous Notes * Addendum Note - Ana Epperson APRN - 11/23/2019 0945 EDTAddended by: ANA EPPERSON on: 11/28/2019 17:26 Modules accepted: Orders documented in this encounter Plan of Treatment Upcoming Encounters Date Type Department Care Team (Late st Contact Info) Description 03/08/2024 9:30 EDT Ancillary Procedure [facility] Cardiology - [address] [place] [address] 03/08/2024 10:15 EDT Ancillary Procedure [facility] Cardiology [address] [place] [address] 04/05/2024 10:00 EDT Ancillary Procedure [facility] [address] [place] [id number] 04/05/2024 10:00 EDT Office Visit [facility] [address] [place] [phone] Carlos Ha NP [address] [place] [address]-[address] [place] [address] Scheduled Orders Name Type Priority Associated Diagnoses Orde r Schedule NM CARD SPECT NUCLEAR STRESS Cardiac Nuclear Medicine Routine [place] (ventricular tachycardia) ([facility]) Ordered: 11/23/2019 NM CARD SPECT NUCLEAR STRESS Cardiac Nuclear Medicine Routine Chest pain, unspecified type Ordered: 11/28/2019 documented as of this encounter Procedures Procedure Name Priority Date/Time Associated Diagnosis Comments TSH Routine 11/23/2019 11:09 EDT Paroxysmal atrial fibrillation (HCC-CMS) MAGNESIUM Routine 11/23/2019 11:09 EDT Paroxysmal atrial fibrillation (HCC-CMS) BASIC METABOLIC PANEL (BMP) Routine 11/23/2019 11:09 EDT Paroxysmal atrial fibrillation (HCC-CMS) documented in this encounter Results * TSH (11/23/2019 11:09 EDT) [facility] THYROID STIM HORMONE [facility] 2.80 0.46 - 4.68 uIU/ml 11/23/2019 12:29 EDT [facility] Comment: The results of this assay can be falsely lowered due to the consumption of Biotin. 11/23/2019 11:0 9 EDT 11/23/2019 11:09 EDT Narrative [facility] - 11/23/2019 12:29 EDT Does PT Have a Latex Allergy? UNKNOWN Ana Epperson INSPECTOR EYEGLASS CHEMISTRY & BLOOD GA S ORDERABLES [facility] * MAGNESIUM (11/23/2019 11:09 EDT) [facility] Magnesium 2.00 1.7 - 2.8 mg/dL 11/23/2019 11:58 EDT [facility] 11/23/2019 11:0 9 EDT 11/23/2019 11:09 EDT Narrative [facility] - 11/23/2019 11:58 EDT Does PT Have a Latex Allergy? UNKNOWN Ana Epperson INSPECTOR EYEGLASS CHEMISTRY & BLOOD GA S ORDERABLES [facility] * (ABNORMAL) BASIC METABOLIC PANEL (BMP) (11/23/2019 11:09 EDT) [facility] BUN [facility] 26 10 - 26 mg/dL 11/23/2019 11:58 EDT [facility] [place]CIUM [place] [facility] 11.2(H) 8.5 - 10.5 mg/dL 11/23/2019 11:58 [facility] Chloride 108 96 - 110 mmol/L 11/23/2019 11:58 [facility] CO2 Total 20(L) 22 - 32 mEq/L 11/23/2019 11:58 [facility] CREATININE 0.92 0.52 - 1.04 mg/dL 11/23/2019 11:58 [facility] eGFR >60 11/23/2019 11:58 [facility] Comment: Chronic renal impairment is defined as GFR <60 Multiply result by 1.210 for patients. eGFR calculated using the IDMS-traceable MDRD Study Equation. ??(effective 04/23/2014) Anion Gap 9 0 - 18 11/23/2019 11:58 [facility] GLUCOSE - [facility] 199(H) 70 - 100 mg/dL 11/23/2019 11:58 [facility] Potassium 5.1(H) 3.5 - 5.0 mEq/L 11/23/2019 11:58 [facility] Sodium 137 136 - 145 mEq/L 11/23/2019 11:58 [facility] 11/23/2019 11:0 9 EDT 11/23/2019 11:09 EDT Narrative [facility] - 11/23/2019 11:58 EDT Does PT Have a Latex Allergy? UNKNOWN Ana Epperson NP CHEMISTRY & BLOOD GA S ORDERABLES [facility] documented in this encounter Visit Diagnoses Diagnosis Paroxysmal atrial fibrillation (HCC-CMS)- Primary Atrial fibrillation Status post placement of implantable loop recorder Other specified cardiac device in situ Current use of usp 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 Long-term (current) use of anticoagulants Mixed hyperlipidemia [place] (ventricular tachycardia) ([facility]) Paroxysmal ventricular tachycardia Chest pain, unspecified type documented in this encounter Historical Medications * This list may reflect changes made after this encounter. Medication Sig Dispensed Refills Start Date End Date nitrofurantoin, macrocrystal-monohydrat e, (MACROBID) 100 mg capsule TK 1 C PO BID FOR ANTIBIOTIC TAKE WITH FOOD 11/14/2019 07/10/2020 FARXIGA 5 mg tablet Take 5 mg by mouth daily. 09/15/2019 07/10/2020 added in this encounter Care Teams Product Marketing Analyst Relationship Specialty Start Date End Date Bryant Crain MD [address] [place] [address] PCP - General 05/04/15 05/17/23 documented as of this encounter
--- OUTSIDE RECORDS SUMMARY | 2024-01-07 11:15 | XMS_ITS | Encounter Summary ---
Author Organization [facility] Address [address] [place] [address] Care Team Providers Care Contact Center Analyst Name Role Phone Bryant Crain MD Primary Care Provider [phone] Carlos Ha DIETITIAN TEACHING Unavailable [phone] Elba Jett MD Primary Care Provider [phone] Encounter Details Date Type Department Care Team (Late st Contact Info) Description 11/06/2019 Lab Requisition [facility] Pathology & Laboratory Medicine - [facility] [address] [place] [address] Rivas Peterson, [address] HERRERA [address] [place] [id number] Neoplasm of unspecified behavior of bone, soft tissue, and skin Social History Tobacco Use Types Packs/Day Years [...] [facility] Cardiology - [address] [place], [place] [phone] 03/08/2024 10:15 EDT Ancillary Procedure [facility] [place] [address] 04/05/2024 10:00 EDT Ancillary Procedure [facility] [address] [place], [place] [phone] 04/05/2024 10:00 EDT Office Visit [facility] [place] [facility] [address] [place] [address] Carlos Ha NP [address] [facility] [address] [place] [address] documented as of this encounter Procedures Procedure Name Priority Date/Time Associated Diagnosis Comments SURGICAL PATHOLOGY Today 11/03/2019 13 :15 EDT Neoplasm of unspecified behavior of bone, soft tissue, and skin documented in this encounter Results * SURGICAL PATHOLOGY (11/03/2019 13:15 EDT) Final Diagnosis A. SKIN OF NASAL ALA, RIGHT, BIOPSY: - Squamous cell carcinoma, well-differentiat ed, transected at base. 11/07/2019 9:52 T [facility] at 0952 Attestation By the signature below, the attending physician certifies that they have 1) personally conducted a gross and/or microscopic examination of the described specimen(s), and/or personally interpreted the results of laboratory testing of the described specimen(s), and 2) personally rendered or confirmed the above diagnosis. 11/07/2019 9:52 T [facility] at 0952 Clinical History Enlarging non-healing black skin lesion 11/07/2019 9:52 [facility] Gross Description A. Received in formalin labelled with proper patient identification (initials S, D) and right nasal ala is a 1.3 x 1.0 x 0.8 cm ovoid excision of firm castillo-white to focally black skin. The margin is inked. The specimen is trisected and entirely submitted in A1. Mayra Cody 11/06/2019 15:40 11/07/2019 9:52 EDT [facility] Scanned Images 11/07/2019 9:52 EDT [facility] Tissue TISSUE SPECIMEN FROM SKIN / Unknown 11/03/2019 13:15 EDT 11/06/2019 15:35 EDT Rivas Peterson DO PATHOLOGY ORDER PAVEL [facility] [address] [place] [address] documented in this encounter Visit Diagnoses Diagnosis Neoplasm of unspecified behavior of bone, soft tissue, and skin documented in this encounter Care Teams Contact Center Analyst Relationship Specialty Start Date End Date Bryant Crain MD [address] [place] [address] PCP - General 05/04/15 05/17/23 Elba Jett MD [address] [place] [phone] PCP - General Family Medicine - Primary Care 05/18/23 Carlos Ha NP [address] [place] [address] [phone] Consulting Clinician Cardiovascular Disease 09/14/21 documented as of this encounter
--- OUTSIDE RECORDS SUMMARY | 2024-01-07 11:15 | XMS_ITS | Encounter Summary ---
Author Organization [facility] Address [address] [place] [address] Care Team Providers Care Pigs Feet Finisher Name Role Phone Bryant Crain MD Primary Care Provider [phone] Reason for Visit * Reason Onset Date Comments Follow-up 09/15/2019 Encounter Details Date Type Department Care Team (Late st Contact Info) Description 09/15/2019 Telephone [facility] [address] [place] [address] Carlos Ha, RAHEEM [address] [facility] [address] [place] [address] Follow-up Social History Tobacco Use Types Packs/Day Years Used Date Smoking Tobacco: Never Assessed Interpersonal Safety Answer Date Record ed Physically Hurt Never 01/21/2020 Verbally Threaten Not on file 01/21/2020 Sex and Gender Information Value Date Recorded Sex Assigned at Not on file Gender Identity Female 06/01/2019 10:00 EST Sexual Orientation Not on file documented as of this encounter Miscellaneous Notes * Telephone Encounter - Sabrina Herring - 09/29/2019 0821 EDT Noted, will look for weekly remote checks on pt. * Telephone Encounter - Ana Epperson APRN - 09/28/2019 1452 EDT Called pt. Who is stuck in [place] with the pandemic; says they should be able to fly home on 10/17.Explained the rhythm; 8 sec. VT run she had on 09/12 and that we would recommend low dose metoprololand ischemic workup. She has been totally asymptomatic; denies CP, palps, dizziness, etc. However, one day she thought she was having another stroke; says her leg went to sleep and when she stood to w alk, her foot dragged. Apparently she had had her legs crossed for some time. She ultimately went to hospital at the [facility] in [facility] and had w/u which was neg. For CVA. She would rather wait to start a new med. Until she gets back home; same with any testing. I asked her to send me a transmission today and if any arrythmias, we would start the metoprolol. I received the transmission and there have not been any further VT episodes or any arrythmias. So Milana asked her to send a transmission weekly until she gets home then we can decide if she needs beta marisa and/or stress test. She agrees with plan. Sabrina, Please note she will be sending weekly for her REVEAL. Ana Miller * Telephone Encounter - Nestor Espinosa - 09/28/2019 1357 EDT Pt called back again * Telephone Encounter - Nestor Espinosa - 09/27/2019 1022 EDT Pt called back, she is in [place] and can be reached on her cell phone, * Telephone Encounter - Ana Epperson APRN - 09/21/2019 1037 EDT Tried to call pt. Again, N/a and no ability to leave a msg. * Telephone Encounter - Ana Epperson, JUSTIN - 09/18/2019 1646 EDT I have tried to contact pt. At her home, cell and her 's cell with no answer. Will try againtomorrow. * Telephone Encounter - Carlos Ha, JUSTIN - 09/15/2019 1654 EDT Ana, I just wanted to follow up with this patient. I have left three message on her home phone to contact the office regarding her short burst of NSVT. I have left the download on your desk. A nuclear stress test and addition of low dose BB was recommended when I reviewed EGM with JM. Gonzalez documented in this encounter Plan of Treatment Upcoming Encounters Date Type Department Care Team (Late st Contact Info) Description 03/08/2024 9:30 EDT Ancillary Procedure [facility] Cardiology - [address] [place], [place] [phone] 03/08/2024 10:15 EDT Ancillary Procedure [facility] Cardiology - [address] [place] [address] 04/05/2024 10:00 EDT Ancillary Procedure [facility] Clinic [address] [place] [phone] 04/05/2024 10:00 EDT Office Visit [facility] [address] [place] [phone] Carlos Ha, NETWORK PROGRAM MANAGER [address] [facility] [address] [place] [address] documented as of this encounter Visit Diagnoses Not on filedocumented in this encounter Care Teams Pigs Feet Finisher Relationship Specialty Start Date End Date Bryant Crain MD [address] [place], [place] [phone] PCP - General 05/04/15 05/17/23 documented as of this encounter
--- OUTSIDE RECORDS SUMMARY | 2024-01-07 11:15 | XMS_ITS | Encounter Summary ---
Author Organization [facility] Address [address] [place] [address] Care Team Providers Care Long Distance Billing Operator Name Role Phone Bryant Crain MD Primary Care Provider Carlos Ha IMPORT EXPORT MANAGER Unavailable [phone] Elba Jett MD Primary Care Provider [phone] Encounter Details Date Type Department Care Team (Late st Contact Info) Description 12/14/2019 Lab Requisition [facility] Pathology & Laboratory Medicine - [address] [address] Rivas Peterson, [address] [place] [address] Squamous cell carcinoma of skin, unspecified; Neoplasm of unspecified behavior of bone, soft tissue, and skin; Actinic keratosis Social History Tobacco Use Types Packs/Day Years [...] Procedure [facility] Cardiology - [place] [address] [place] [address] 03/08/2024 10:15 EDT Ancillary Procedure [facility] Cardiology - [place] [address] [place] [address] 04/05/2024 10:00 EDT Ancillary Procedure [facility] [address] [place] [address] 04/05/2024 10:00 EDT Office Visit [facility] [address] [place] [address] Carlos Ha NP [address] [place] [address]-[address] [place] [address] documented as of this encounter Procedures Procedure Name Priority Date/Time Associated Diagnosis Comments SURGICAL PATHOLOGY Today 12/14/2019 11 :22 EDT Squamous cell carcinoma of skin, unspecified Neoplasm of unspecified behavior of bone, soft tissue, and skin Actinic keratosis documented in this encounter Results * SURGICAL PATHOLOGY (12/14/2019 11:22 EDT) Final Diagnosis A. SKIN, RIGHT NASAL ALA, EXCISION: - Scar, no evidence of residual squamous cell carcinoma. See comment. - Margins uninvolved by invasive carcinoma. 12/19/2019 12:49 [facility] at 1249 Attestation By the signature below, the attending physician certifies that they have 1) personally conducted a gross and/or microscopic examination of the described specimen(s), and/or personally interpreted the results of laboratory testing of the described specimen(s), and 2) personally rendered or confirmed the above diagnosis. 12/19/2019 12:49 [facility] at 1249 Diagnosis Comment The interpretation of the intraoperative consultation is compatible with the final diagnosis. This sample was processed at the [facility]. The slides were reviewed and the final diagnosis was made at [facility], [address] [place] [address] (CLIA License Number [id number]). 12/19/2019 12:49 [facility] Intraoperative Consultation RIGHT NASAL ALA, FROZEN SECTION: - Scar, no evidence of residual carcinoma in sections examined, margins uninvolved by carcinoma. - FSA1: Scar, no evidence of residual carcinoma in sections examined. Margins uninvolved by carcinoma. - Diagnosis discussed with Dr. Mina Peterson by Dr. Tammi Gallardo. Dr. Tammi Gallardo 12/14/2019 12/19/2019 12:49 [facility] Clinical History SCCA R nasal ala 12:49 [facility] Gross Description A. Received fresh labelled with proper patient identification (initials S, D) and right nasal ala with suture markings is a 1.8 x 1.2 x 0.4 cm oriented ellipse of skin with a white suture at 3 o'clock, a blue suture at 6 o'clock, and a black suture at 9 o'clock. The specimen is inked as follows: 3-6-9 is red, 9-12-3 is green and deep is black. The specimen is serially sectioned from 3-9 o'clock into 5 levels and entirely submitted for frozen section analysis (with the tips reverse en face), with interpretation as rendered above, as FSA1. The frozen section remainders are subsequently submitted as follows: BLOCK DEXTER A1- remainder of 3 o'clock tip, reverse en face A2-A4- 3 central sections A5- remainder of 9 o'clock tip, reverse en face Mayra Glo 12/15/2019 13:56 12/19/2019 12:49 [facility] Scanned Images 12/19/2019 12:49 [facility] Tissue TISSUE SPECIMEN FROM SKIN / Unknown 12/14/2019 11:22 EDT 12/14/2019 21:38 EDT Rivas Peterson DO PATHOLOGY ORDER [facility] [address] [place] [address] documented in this encounter Visit Diagnoses Diagnosis Squamous cell carcinoma of skin, unspecified Neoplasm of unspecified behavior of bone, soft tissue, and skin Actinic keratosis documented in this encounter Care Teams Long Distance Billing Operator Relationship Specialty Start Date End Date Bryant Crain MD [address] [place] [address] PCP - General 05/04/15 05/17/23 Elba Jett MD [address] [place] [phone] PCP - General Family Medicine - Primary Care 05/18/23 Carlos Ha NP [address] [place] [address] [phone] Consulting Clinician Cardiovascular Disease 09/14/21 documented as of this encounter
--- OUTSIDE RECORDS SUMMARY | 2024-01-07 11:15 | XMS_ITS | Encounter Summary ---
Author Organization [facility] Address [address] [place] [address] Care Team Providers Care Property Management Specialist Name Role Phone Bryant Crain MD Primary Care Provider Encounter Details Date Type Department Care Team (Latest Contact Info) Description 07/10/2020 Travel Social History Tobacco Use Types Packs/Day [...] 9:30 EDT Ancillary Procedure [facility] - [address] [place] [address] 03/08/2024 10:15 EDT Ancillary Procedure [facility] [place] [address] 04/05/2024 10:00 EDT Ancillary Procedure [facility] [address] [place] [id number] 04/05/2024 10:00 EDT Office Visit [facility] [address] [place] [phone] Carlos Ha NP [address] [place] [address] [address] [place] [address] documented as of this encounter Visit Diagnoses Not on filedocumented in this encounter Care Teams Property Management Specialist Relationship Specialty Start Date End Date Bryant Crain MD [address] [place], [place] [id number] PCP - General 05/04/15 05/17/23 documented as of this encounter
--- OUTSIDE RECORDS SUMMARY | 2024-01-07 11:15 | XMS_ITS | Encounter Summary ---
Author Organization [facility] Address [address] [place] [address] Care Team Providers Care Plant Engineer Name Role Phone Bryant Crain MD Primary Care Provider [phone] Carlos Ha CASH TELLER Unavailable [phone] Elba Jett MD Primary Care Provider [phone] Encounter Details Date Type Department Care Team (Late st Contact Info) Description 12/11/2019 Lab Requisition [facility] Pathology & Laboratory Medicine - [address] [address] Outr Resulting Lab, Provider Social [...] Info) Description 03/08/2024 9:30 EDT Ancillary Procedure [facility] Cardiology - [facility] [address] [place], [place] [phone] 03/08/2024 10:15 EDT Ancillary Procedure [facility] Cardiology - [facility] [address] [place] [phone] 04/05/2024 10:00 EDT Ancillary Procedure [facility] Clinic [address] [place], [place] [phone] 04/05/2024 10:00 EDT Office Visit [facility] Clinic [address] [place] [address] Carlos Ha NP [address] [facility] [address] [place] [address] documented as of this encounter Procedures Procedure Name Priority Date/Time Associated Diagnosis Comments PTH INTACT Routine 12/11/2019 14:47 EDT documented in this encounter Results * PTH INTACT (12/11/2019 14:47 EDT) Intact PTH 64 19 - 88 pg/mL 12/12/2019 11:39 EDT [facility] Blood VENOUS BLOOD / Unknown 12/11/2019 14:47 EDT 12/12/2019 10:45 EDT Provider Outr Resulting Lab CHEMISTRY & BLOOD GAS ORDERABLES [facility] [address] [place] [address] documented in this encounter Visit Diagnoses Not on filedocumented in this encounter Care Teams Plant Engineer Relationship Specialty Start Date End Date Bryant Crain MD [address] [place], [place] [id number] PCP - General 05/04/15 05/17/23 Elba Jett MD [address] [place] [phone] PCP - General Family Medicine - Primary Care 05/18/23 Carlos Ha NP [address] [place] [phone] Consulting Clinician Cardiovascular Disease 09/14/21 documented as of this encounter
--- OUTSIDE RECORDS SUMMARY | 2024-01-07 11:15 | XMS_ITS | Encounter Summary ---
Author Organization [facility] Address [address] [place] [address] Care Team Providers Care Set Painter Name Role Phone Bryant Crain MD Primary Care Provider [phone] Encounter Details Date Type Department Care Team (Late st Contact Info) Description 10/02/2019 Orders Only [facility] Cardiology Clinic [address] [place], [place] [phone] Ana Epperson, RAHEEM Status post placement of [...] Info) Description 03/08/2024 9:30 EDT Ancillary Procedure [facility] Cardiology - [facility] [place] [address] 03/08/2024 10:15 EDT Ancillary Procedure [facility] Cardiology - [facility] [address] [place], [place] [phone] 04/05/2024 10:00 EDT Ancillary Procedure [facility] [address] [place] [address] 04/05/2024 10:00 EDT Office Visit [facility] [address] [place] [address] Carlos Ha, INSURANCE AND FINANCIAL SERVICES AGENT [address] [facility] [address] [place] [address] documented as of this encounter Procedures Procedure Name Priority Date/Time Associated Diagnosis Comments CARDIAC IMPLANT CHECK - REMOTE MONITOR Routine 10/02/2019 11:20 EDT Status post placement of implantable loop recorder documented in this encounter Results * CARDIAC IMPLANT CHECK - REMOTE - LOOP RECORDER (ILR) (10/02/2019 11:20 EDT) Anatomical Region Laterality Modality Device Narrative 10/02/2019 11:21 EDT Remote transmission of ILR reviewed. Good battery status. No arrhythmias, no symptoms. See scanned documents for full details. Procedure Note Orquidea Bowers APRN - 10/02/2019 Remote transmission of ILR reviewed. Good battery status. No arrhythmias,no symptoms. See scanned documents for full details. Ana A [place] INSURANCE AND FINANCIAL SERVICES AGENT CV IMPLANTABLE CARDI AC DEVICE documented in this encounter Visit Diagnoses Diagnosis Status post placement of implantable loop recorder- Primary Other specified cardiac device in situ documented in this encounter Care Teams Set Painter Relationship Specialty Start Date End Date Bryant Crain MD [address] [place], [place] [phone] PCP - General 05/04/15 05/17/23 documented as of this encounter
--- OUTSIDE RECORDS SUMMARY | 2024-01-07 11:15 | XMS_ITS | Encounter Summary ---
Author Organization [facility] Address [address] [place] [address] Care Team Providers Care Software Administrator Name Role Phone Bryant Crain MD Primary Care Provider [phone] Reason for Visit * Reason Onset Date Comments Other 11/23/2019 Encounter Details Date Type Department Care Team (Late st Contact Info) Description 11/23/2019 Telephone [facility] [address] [place] [address] Ana Epperson, SQUARE CUTTER Other Social History Tobacco Use Types Packs/Day [...] * Telephone Encounter - Nestor Espinosa - 11/24/2019 0837 EDT Note faxed to Dr. Peterson at [place], . * Telephone Encounter - Ana Epperson APRN - 11/23/2019 1744 EDT Please send copy of note to Dr. [place] [facility] documented in this encounter Plan of Treatment Upcoming Encounters Date Type Department Care Team (Late st Contact Info) Description 03/08/2024 9:30 EDT Ancillary Procedure [facility] Cardiology [address] [address] 03/08/2024 10:15 EDT Ancillary Procedure [facility] Cardiology [address] [place] [address] 04/05/2024 10:00 EDT Ancillary Procedure [facility] [address] [place] [phone] 04/05/2024 10:00 EDT Office Visit [facility] [address] [place] [address] Carlos Ha NP [address] [place] [address] [address] [place] [phone] documented as of this encounter Visit Diagnoses Not on filedocumented in this encounter Care Teams Software Administrator Relationship Specialty Start Date End Date Bryant Crain MD [address] [place] [address] PCP - General 05/04/15 05/17/23 documented as of this encounter
--- OUTSIDE RECORDS SUMMARY | 2024-01-07 11:15 | XMS_ITS | Encounter Summary ---
Author Organization [facility] Address [address] [place] [address] Care Team Providers Care Compensation Business Partner Name Role Phone Bryant Crain MD Primary Care Provider [phone] Reason for Visit * Reason Onset Date Comments COVID-19 09/19/2020 Encounter Details Date Type Department Care Team (Late st Contact Info) Description 09/19/2020 Telephone [facility] [address] [place] [address] Carlos Ha, RAHEEM [address] [facility] [address] [phone] COVID-19 Social History Tobacco Use Types Packs/Day Years [...] encounter Miscellaneous Notes * Telephone Encounter - Ashwini Sahni RN - 09/19/2020 1631 EDT Talked with patient. Her PCP has contacted her and has her quarantining until Wednesday and getting a COVID test tomorrow. Patient to reschedule appointment or change to telemedicine appointment. Transferred to front desk receptionist to do so. * Telephone Encounter - Elodia Marc - 09/19/2020 1557 EDT Patient called to see if she needs to reschedule her appointment for tomorrow. She just found out today that her grandchildren have COVID. She reports the last contact with them was on August 30. documented in this encounter Plan of Treatment Upcoming Encounters Date Type Department Care Team (Late st Contact Info) Description 03/08/2024 9:30 EDT Ancillary Procedure [facility] Cardiology - [place] [address] [address] [place], [place] [phone] 03/08/2024 10:15 EDT Ancillary Procedure [facility] Cardiology - [place] [address] [place] [address] 04/05/2024 10:00 EDT Ancillary Procedure [facility] Cardiology Clinic [address] [place] [phone] 04/05/2024 10:00 EDT Office Visit [facility]iology [facility] [address] [place] [phone] Carlos Ha NP [address] [place] [address] [place] [address] documented as of this encounter Visit Diagnoses Not on filedocumented in this encounter Care Teams Compensation Business Partner Relationship Specialty Start Date End Date Bryant Crain MD [address] [place] [address] PCP - General 05/04/15 05/17/23 documented as of this encounter
--- OUTSIDE RECORDS SUMMARY | 2024-01-07 11:15 | XMS_ITS | Encounter Summary ---
Author Organization [facility] Address [address] [place] [address] Care Team Providers Care Store Team Leader Name Role Phone Bryant Crain MD Primary Care Provider [phone] Carlos Ha INSTALLATION DRAFTER Unavailable [phone] Elba Jett MD Primary Care Provider [phone] Encounter Details Date Type Department Care Team (Late st Contact Info) Description 12/05/2019 Results Only Imaging [facility] [address] [place] [id number] Ana Epperson, RAHEEM Social History Tobacco Use Types Packs/Day Years [...] Info) Description 03/08/2024 9:30 EDT Ancillary Procedure [facility] [address] [place] [address] 03/08/2024 10:15 EDT Ancillary Procedure [facility] [address] [place] [address] 04/05/2024 10:00 EDT Ancillary Procedure [facility] [address] [place] [id number] 04/05/2024 10:00 EDT Office Visit [facility] [address], [place] [id number] Carlos Ha NP [address] [facility] [address] [place] [address] documented as of this encounter Procedures Procedure Name Priority Date/Time Associated Diagnosis Comments NM CARD SPECT NUCLEAR STRESS 12/05/2019 14:16 EDT NM CARD SPECT NUCLEAR STRESS 12/05/2019 10:00 EDT documented in this encounter Results * NM CARD SPECT NUCLEAR STRESS (12/05/2019 14:16 EDT) Anatomical Region Laterality Modality Chest Nuclear Stress 12/05/2019 8:53 EDT Narrative 12/05/2019 14:16 EDT ? EXAM: NUCLEAR MEDICINE/NUCLEAR STRESS FUNMILAYO EX. D/ (0853) ? CLINICAL INFORMATION: ? R07.9 CHEST PAIN, UNSPECIFIED TYPE ? *[facility]* ? *[facility]* ? [address] [facility] ? [place] [address] ? Myocardial Perfusion Imaging - SPECT ? Regadenoson ? Date of study: ??12/05/2019 ? *PATIENT PRESENTATION* ? Height: ? 157.5cm (62in) ? Blood Pressure: ? Weight: ? 74.1kg (163lb) ? BSA: ?1.83m S 2 ? Ordering physician: Ana EppersonpChristian ? Impressions: ? - Normal perfusion by Tc99m Sestamibi Imaging. ? - Abnormal contraction consistent with cardiomyopathy. ? - Low risk of cardiac events, but higher compared to non-diabetics. ? Summary: ? 1. Myocardial perfusion imaging: No myocardial perfusion defects ?noted. ? 2. The left ventricular end-systolic volume is 67ml. The calculated ?left ventricular ejection fraction after stress: 45%. LV global ?systolic function is mildly reduced. No left ventricular regional ?motion abnormality. ? 3. Stress ECG conclusions: The stress ECG is negative. ? 4. Baseline ECG: Sinus bradycardia with 1degrees AV block and a ?nonspecific intraventricular conduction defect. ? Indication: ?? SCREENING, Appropriate Use Criteria: A (Appropriate). ? History: ? NO C/O CHEST PAIN OR SOB. ? SCREENING PRIOR TO SURGERY ( NASAL SQUAMOUS CELL) ? LOOP RECORDER PLACED FOR PAF SHOWED 8 SECOND RUN OF VT. ? NO PREVIOUS CAD. ? Risk factors: ??Hypertension. Diabetes mellitus. ? MEDS: SEE EPIC. ? Imaging Technique: ? PAGE 1 ? Signed Report ? (CONTINUED) ? Protocol: ??Regadenoson. ? Acquisition: ?? Gated SPECT; 1 day - rest/stress. ?The patient was ? imaged in the supine position. Attenuation correction used. ? Isotope administration: ? - Rest. Tc[99m]-sestamibi. Dose: 10.8mCi. Injection time: 07:36 AM. ? Injection to stress time: 00:45. ? - Stress. Tc[99m]-sestamibi. Dose: 32mCi. Injection time: 08:18 AM. ? Injected at: peak pharmacologic stress. ? Baseline ECG: ??SINUSBRADY- 56 BPM ? T INVERSION 1,2,AVL. ? Q'S IN V1,V2. ??Sinus bradycardia with 1degrees AV block and a ? nonspecific intraventricular conduction defect. ??Nonspecific T wave ? changes. ? Stress protocol: ? +--------+--+ + + ? !Stage ?? !HR!BP (mmHg) ?? !Comments ? ! ? +--------+--+ + + ? !Baseline!56!144/88 (107)! ! ? +--------+--+ + + ? !1 min ?? !56! !Inject Regadenoson.! ? +--------+--+ + + ? !2 min ?? !80!148/74 (99) ! ! ? +--------+--+ + + ? !3 min ?? !78! ! ! ? +--------+--+ + + ? !4 min ?? !74! ! ! ? +--------+--+ + + ? !5 min ?? !77!153/74 (100)! ! ? +--------+--+ + + ? !6 min ?? !74! ! ! ? +--------+--+ + + ? !7 min ?? !79! ! ! ? +--------+--+ + + ? !8 min ?? !81! ! ! ? +--------+--+ + + ? * ? Stress results: ??The rate-pressure product for the peak heart rate and ? blood pressure was 24427ev Hg/min. ? Stress ECG: ? RESTING LEXISCAN STUDY] ? NO CHEST PAIN ? NO ECTOPY ? ECG ABNORMAL AT REST, NO ADDITIONAL CHANGES. ??The stress ECG is ? negative. ? Myocardial perfusion: ?? Imaging information: gated. The image quality ? was good. The left ventricle is mildly dilated. No myocardial ? perfusion defects noted. ? Ventricular Function (Wall Motion): ?? The left ventricular ? end-systolic volume is 67ml. The calculated left ventricular ejection ? fraction after stress: 45%. LV global systolic function is mildly ? reduced. ?? No left ventricular regional motion abnormality. ? PAGE 2 ? Signed Report ? (CONTINUED) ? Study data: ??Stone Argueta MD supervised and was readily available ? during the procedure. This study was interpreted by [facility]. ? Study status: ??Routine. ? Consent: ??The risks, benefits, and alternatives to the procedure were ? explained to the patient and informed consent was obtained. ? Procedure: ??Initial setup. A baseline ECG was recorded. Surface ECG ? leads and manual cuff blood pressure measurements were monitored. ? Heart sounds: Murmur. ? Lung sounds: Normal. ? Regadenoson stress test. Stress testing was performed, with ? regadenoson by intravenous bolus, for a total dose of 0.4mgover ? 10.00sec, followed by a 5ml saline flush. The infusion was terminated ? due to per protocol. ? Study completion: ??All catheters inserted during the procedure were ? removed. The patient tolerated the procedure well and was discharged ? from the lab. ? Discharge: ??The patient left the laboratory in stable condition. ? Birthdate: ??Patient birthdate: 1950. ? Sex: Gender: female. ? Study date: ??Study date: 12/05/2019. ? Study time: 10:00 AM. ? Signature Documentation: ? - The imaging portion of this study was interpreted by Nuclear ? Handle Turner Stone Argueta MD. ? - The Stress ECG portion of this study was interpreted by Stone ? MD Ellie. ? Electronically signed by ? Stone Argueta ? 12/05/2019 10:27 ?Reported By: Stone Argueta MD ? CC: ? Transcribed Date/Time: 12/05/2019 (6516) ? Technical Marketing Consultant: BILL ? Printed Date/Time: 12/05/2019 (306) ? PAGE 3 ? Signed Report ? Procedure Note Stone Argueta MD - 12/05/2019 EXAM: NUCLEAR MEDICINE/NUCLEAR STRESS FUNMILAYO EX. D/ (0853) CLINICAL INFORMATION: R07.9 CHEST PAIN, UNSPECIFIED TYPE *[facility]* *[facility]* [address] [place] [address] Myocardial Perfusion Imaging - SPECT Regadenoson Date of study: 12/05/2019 *PATIENT PRESENTATION* Height: 157.5cm (62in) Blood Pressure: Weight: 74.1kg (163lb) BSA: 1.83m S 2 Ordering physician: Ana Epperson Impressions: - Normal perfusion by Tc99m Sestamibi Imaging. - Abnormal contraction consistent with cardiomyopathy. - Low risk of cardiac events, but higher compared to non-diabetics. Summary: 1. Myocardial perfusion imaging: No myocardial perfusion defects noted. 2. The left ventricular end-systolic volume is 67ml. The calculated left ventricular ejection fraction after stress: 45%. LV global systolic function is mildly reduced. No left ventricularregional motion abnormality. 3. Stress ECG conclusions: The stress ECG is negative. 4. Baseline ECG: Sinus bradycardia with 1degrees AV block and a nonspecific intraventricular conduction defect. Indication: SCREENING, Appropriate Use Criteria: A (Appropriate). History: NO C/O CHEST PAIN OR SOB. SCREENING PRIOR TO SURGERY ( NASAL SQUAMOUS CELL) LOOP RECORDER PLACED FOR PAF SHOWED 8 SECOND RUN OF VT. NO PREVIOUS CAD. Risk factors: Hypertension. Diabetes mellitus. MEDS: SEE EPIC. Imaging Technique: PAGE 1 Signed Report (CONTINUED) Protocol: Regadenoson. Acquisition: Gated SPECT; 1 day - rest/stress. The patient was imaged in the supine position. Attenuation correction used. Isotope administration: - Rest. Tc[99m]-sestamibi. Dose: 10.8mCi. Injection time: 07:36 AM. Injection to stress time: 00:45. - Stress. Tc[99m]-sestamibi. Dose: 32mCi. Injection time: 08:18 AM. Injected at: peak pharmacologic stress. Baseline ECG: SINUSBRADY- 56 BPM T INVERSION 1,2,AVL. Q'S IN V1,V2. Sinus bradycardia with 1degrees AV block and a nonspecific intraventricular conduction defect. Nonspecific T wave changes. Stress protocol: +--------+--+ + + !Stage !HR!BP (mmHg) !Comments ! +--------+--+ + + !Baseline!56!144/88 (107)! ! +--------+--+ + + !1 min !56! !Inject Regadenoson.! +--------+--+ + + !2 min !80!148/74 (99) ! ! +--------+--+ + + !3 min !78! ! ! +--------+--+ + + !4 min !74! ! ! +--------+--+ + + !5 min !77!153/74 (100)! ! +--------+--+ + + !6 min !74! ! ! +--------+--+ + + !7 min !79! ! ! +--------+--+ + + !8 min !81! ! ! +--------+--+ + + * Stress results: The rate-pressure product for the peak heart rateand blood pressure was 76741hb Hg/min. Stress ECG: RESTING LEXISCAN STUDY] NO CHEST PAIN NO ECTOPY ECG ABNORMAL AT REST, NO ADDITIONAL CHANGES. The stress ECG is negative. Myocardial perfusion: Imaging information: gated. The imagequality was good. The left ventricle is mildly dilated. No myocardial perfusion defects noted. Ventricular Function (Wall Motion): The left ventricular end-systolic volume is 67ml. The calculated left ventricularejection fraction after stress: 45%. LV global systolic function is mildly reduced. No left ventricular regional motion abnormality. PAGE 2 Signed Report (CONTINUED) Study data: Stone Argueta MD supervised and was readilyavailable during the procedure. This study was interpreted by [facility]. Study status: Routine. Consent: The risks, benefits, and alternatives to the procedurewere explained to the patient and informed consent was obtained. Procedure: Initial setup. A baseline ECG was recorded. Surface ECG leads and manual cuff blood pressure measurements were monitored. Heart sounds: Murmur. Lung sounds: Normal. Regadenoson stress test. Stress testing was performed, with regadenoson by intravenous bolus, for a total dose of 0.4mgover 10.00sec, followed by a 5ml saline flush. The infusion wasterminated due to per protocol. Study completion: All catheters inserted during the procedure were removed. The patient tolerated the procedure well and wasdischarged from the lab. Discharge: The patient left the laboratory in stable condition. Birthdate: Patient birthdate: 1950. Sex: Gender: female. Study date: Study date: 12/05/2019. Study time: 10:00 AM. Signature Documentation: - The imaging portion of this study was interpreted by Nuclear Handle Turner Stone Argueta MD. - The Stress ECG portion of this study was interpreted by Stone Argueta MD. Electronically signed by Stone Argueta 12/05/2019 10:27 Reported By: Stone Argueta MD CC: Transcribed Date/Time: 12/05/2019 (0970) Technical Marketing Consultant: BILL Printed Date/Time: 12/05/2019 (9361) PAGE 3 Signed Report Ana Epperson INSTALLATION DRAFTER CARDIAC NM ORDERABLE S * NM CARD SPECT NUCLEAR STRESS (12/05/2019 10:00 EDT) Anatomical Region Laterality Modality Chest Nuclear Stress 12/05/2019 10:0 0 EDT Narrative 12/05/2019 10:27 EDT *[facility]* *[facility]* [address] [place] [address] Myocardial Perfusion Imaging - SPECT Regadenoson Date of study: ??12/05/2019 *PATIENT PRESENTATION* Height: ? 157.5cm (62in) Blood Pressure: Weight: ? 74.1kg (163lb) BSA: ?1.83m^2 Ordering physician: Ana Epperson [employer] Impressions: - Normal perfusion by Tc99m Sestamibi Imaging. - Abnormal contraction consistent with cardiomyopathy. - Low risk of cardiac events, but higher compared to non-diabetics. Summary: 1. Myocardial perfusion imaging: No myocardial perfusion defects noted. 2. The left ventricular end-systolic volume is 67ml. The calculated left ?? ventricular ejection fraction after stress: 45%. LV global systolic ?? function is mildly reduced. No left ventricular regional motion ?? abnormality. 3. Stress ECG conclusions: The stress ECG is negative. 4. Baseline ECG: Sinus bradycardia with 1degrees AV block and a ?? nonspecific intraventricular conduction defect. Indication: ?? SCREENING, Appropriate Use Criteria: A (Appropriate). History: NO C/O CHEST PAIN OR SOB. SCREENING PRIOR TO SURGERY ( NASAL SQUAMOUS CELL) LOOP RECORDER PLACED FOR PAF SHOWED 8 SECOND RUN OF VT. NO PREVIOUS CAD. ??Risk factors: ??Hypertension. Diabetes mellitus. MEDS: SEE EPIC. Imaging Technique: Protocol: ??Regadenoson. Acquisition: ?? Gated SPECT; 1 day - rest/stress. ?The patient was imaged in the supine position. Attenuation correction used. Isotope administration: - Rest. Tc[99m]-sestamibi. Dose: 10.8mCi. Injection time: 07:36 AM. ??Injection to stress time: 00:45. - Stress. Tc[99m]-sestamibi. Dose: 32mCi. Injection time: 08:18 AM. ??Injected at: peak pharmacologic stress. Baseline ECG: ??SINUSBRADY- 56 BPM T INVERSION 1,2,AVL. Q'S IN V1,V2. ??Sinus bradycardia with 1degrees AV block and a nonspecific intraventricular conduction defect. ??Nonspecific T wave changes. Stress protocol: +--------+--+ + + !Stage ?? !HR!BP (mmHg) ?? !Comments ? ! +--------+--+ + + !Baseline!56!144/88 (107)! ! +--------+--+ + + !1 min ?? !56! !Inject Regadenoson.! +--------+--+ + + !2 min ?? !80!148/74 (99) ! ! +--------+--+ + + !3 min ?? !78! ! ! +--------+--+ + + !4 min ?? !74! ! ! +--------+--+ + + !5 min ?? !77!153/74 (100)! ! +--------+--+ + + !6 min ?? !74! ! ! +--------+--+ + + !7 min ?? !79! ! ! +--------+--+ + + !8 min ?? !81! ! ! +--------+--+ + + * Stress results: ??The rate-pressure product for the peak heart rate and blood pressure was 05025sp Hg/min. Stress ECG: RESTING LEXISCAN STUDY] NO CHEST PAIN NO ECTOPY ECG ABNORMAL AT REST, NO ADDITIONAL CHANGES. ??The stress ECG is negative. Myocardial perfusion: ?? Imaging information: gated. The image quality was good. The left ventricle is mildly dilated. No myocardial perfusion defects noted. Ventricular Function (Wall Motion): ?? The left ventricular end-systolic volume is 67ml. The calculated left ventricular ejection fraction after stress: 45%. LV global systolic function is mildly reduced. ?? No left ventricular regional motion abnormality. Study data: ??Stone Argueta MD supervised and was readily available during the procedure. This study was interpreted by [facility]. ??Study status: ??Routine. ??Consent: ??The risks, benefits, and alternatives to the procedure were explained to the patient and informed consent was obtained. ??Procedure: ??Initial setup. A baseline ECG was recorded. Surface ECG leads and manual cuff blood pressure measurements were monitored. Heart sounds: Murmur. Lung sounds: Normal. ??Regadenoson stress test. Stress testing was performed, with regadenoson by intravenous bolus, for a total dose of 0.4mgover 10.00sec, followed by a 5ml saline flush. The infusion was terminated due to per protocol. Study completion: ??All catheters inserted during the procedure were removed. The patient tolerated the procedure well and was discharged from the lab. ??Discharge: ??The patient left the laboratory in stable condition. ? Birthdate: ??Patient birthdate: 1950. ??Sex: ??Gender: female. ??Study date: ??Study date: 12/05/2019. Study time: 10:00 AM. Signature Documentation: - The imaging portion of this study was interpreted by Nuclear ??Handle Turner Stone Argueta MD. - The Stress ECG portion of this study was interpreted by Stone ??MD Ellie. Electronically signed by Stone Argueta 12/05/2019 10:27 Procedure Note Stone Argueta MD - 12/05/2019 *[facility]* *[facility]* [address] [place] [address] Myocardial Perfusion Imaging - SPECT Regadenoson Date of study: 12/05/2019 *PATIENT PRESENTATION* Height: 157.5cm (62in) Blood Pressure: Weight: 74.1kg (163lb) BSA: 1.83m^2 Ordering physician: Ana Epperson Impressions: - Normal perfusion by Tc99m Sestamibi Imaging. - Abnormal contraction consistent with cardiomyopathy. - Low risk of cardiac events, but higher compared to non-diabetics. Summary: 1. Myocardial perfusion imaging: No myocardial perfusion defects noted. 2. The left ventricular end-systolic volume is 67ml. The calculated left ventricular ejection fraction after stress: 45%. LV global systolic function is mildly reduced. No left ventricular regional motion abnormality. 3. Stress ECG conclusions: The stress ECG is negative. 4. Baseline ECG: Sinus bradycardia with 1degrees AV block and a nonspecific intraventricular conduction defect. Indication: SCREENING, Appropriate Use Criteria: A (Appropriate). History: NO C/O CHEST PAIN OR SOB. SCREENING PRIOR TO SURGERY ( NASAL SQUAMOUS CELL) LOOP RECORDER PLACED FOR PAF SHOWED 8 SECOND RUN OF VT. NO PREVIOUS CAD. Risk factors: Hypertension. Diabetes mellitus. MEDS: SEE EQ works. Imaging Technique: Protocol: Regadenoson. Acquisition: Gated SPECT; 1 day - rest/stress. The patient was imaged in the supine position. Attenuation correction used. Isotope administration: - Rest. Tc[99m]-sestamibi. Dose: 10.8mCi. Injection time: 07:36 AM. Injection to stress time: 00:45. - Stress. Tc[99m]-sestamibi. Dose: 32mCi. Injection time: 08:18 AM. Injected at: peak pharmacologic stress. Baseline ECG: SINUSBRADY- 56 BPM T INVERSION 1,2,AVL. Q'S IN V1,V2. Sinus bradycardia with 1degrees AV block and a nonspecific intraventricular conduction defect. Nonspecific T wave changes. Stress protocol: +--------+--+ + + !Stage !HR!BP (mmHg) !Comments ! +--------+--+ + + !Baseline!56!144/88 (107)! ! +--------+--+ + + !1 min !56! !Inject Regadenoson.! +--------+--+ + + !2 min !80!148/74 (99) ! ! +--------+--+ + + !3 min !78! ! ! +--------+--+ + + !4 min !74! ! ! +--------+--+ + + !5 min !77!153/74 (100)! ! +--------+--+ + + !6 min !74! ! ! +--------+--+ + + !7 min !79! ! ! +--------+--+ + + !8 min !81! ! ! +--------+--+ + + * Stress results: The rate-pressure product for the peak heart rate and blood pressure was 02080nb Hg/min. Stress ECG: RESTING LEXISCAN STUDY] NO CHEST PAIN NO ECTOPY ECG ABNORMAL AT REST, NO ADDITIONAL CHANGES. The stress ECG is negative. Myocardial perfusion: Imaging information: gated. The image quality was good. The left ventricle is mildly dilated. No myocardial perfusion defects noted. Ventricular Function (Wall Motion): The left ventricular end-systolic volume is 67ml. The calculated left ventricular ejection fraction after stress: 45%. LV global systolic function is mildly reduced. No left ventricular regional motion abnormality. Study data: Stone Argueta MD supervised and was readily available during the procedure. This study was interpreted by [facility]. Study status: Routine. Consent: The risks, benefits, and alternatives to the procedure were explained to the patient and informed consent was obtained. Procedure: Initial setup. A baseline ECG was recorded. Surface ECG leads and manual cuff blood pressure measurements were monitored. Heart sounds: Murmur. Lung sounds: Normal. Regadenoson stress test. Stress testing was performed, with regadenoson by intravenous bolus, for a total dose of 0.4mgover 10.00sec, followed by a 5ml saline flush. The infusion was terminated due to per protocol. Study completion: All catheters inserted during the procedure were removed. The patient tolerated the procedure well and was discharged from the lab. Discharge: The patient left the laboratory in stable condition. Birthdate: Patient birthdate: 1950. Sex: Gender: female. Study date: Study date: 12/05/2019. Study time: 10:00 AM. Signature Documentation: - The imaging portion of this study was interpreted by Nuclear Handle Turner Stone Argueta MD. - The Stress ECG portion of this study was interpreted by Stone Argueta MD. Electronically signed by Stone Argueta 12/05/2019 10:27 Ana Epperson INSTALLATION DRAFTER CARDIAC NM ORDERABLE S documented in this encounter Visit Diagnoses Not on filedocumented in this encounter Care Teams Store Team Leader Relationship Specialty Start Date End Date Bryant Crain MD [address] [place] [address] PCP - General 05/04/15 05/17/23 Elba Jett MD [address] [place] [phone] PCP - General Family Medicine - Primary Care 05/18/23 Carlos Ha NP [address] [place] [address] [phone] Consulting Clinician Cardiovascular Disease 09/14/21 documented as of this encounter
--- OUTSIDE RECORDS SUMMARY | 2024-01-07 11:15 | XMS_ITS | Encounter Summary ---
Author Organization [facility] Address [address] [place] [address] Care Team Providers Care Casting Plug Assembler Name Role Phone Bryant Crain MD Primary Care Provider [phone] Carlos Ha CARDIAC SURGEON Unavailable [phone] Elba Jett MD Primary Care Provider [phone] Encounter Details Date Type Department Care Team (Late st Contact Info) Description 11/14/2019 Lab Requisition [facility] Pathology & Laboratory Medicine - [facility] [address] [place] [address] Rivas Peterson, [address] HERRERA [address] [place] [address] Neoplasm of unspecified behavior of bone, soft [...] [facility] - [address] [place], [place] [id number] 03/08/2024 10:15 EDT Ancillary Procedure [facility] Cardiology - [place] [address] 04/05/2024 10:00 EDT Ancillary Procedure [facility] Cardiology Clinic [address] [place], [place] [phone] 04/05/2024 10:00 EDT Office Visit [facility] Cardiology Clinic [address] [place] [address] Carlos Ha NP 130 [facility] [address] [place] [address] documented as of this encounter Procedures Procedure Name Priority Date/Time Associated Diagnosis Comments SURGICAL PATHOLOGY Today 11/10/2019 14 :55 EDT Neoplasm of unspecified behavior of bone, soft tissue, and skin documented in this encounter Results * SURGICAL PATHOLOGY (11/10/2019 14:55 EDT) Final Diagnosis A. SKIN OF BASE OF NECK, LEFT, SHAVE BIOPSY: - Squamous cell carcinoma in situ. - Follicular involvement not identified. - Squamous cell carcinoma situ does not extend to edges of shave biopsy specimen in the plane of the sections examined. All 11/15/2019 12:53 [facility] at 1253 Attestation By the signature below, the attending physician certifies that they have 1) personally conducted a gross and/or microscopic examination of the described specimen(s), and/or personally interpreted the results of laboratory testing of the described specimen(s), and 2) personally rendered or confirmed the above diagnosis. 11/15/2019 12:53 [facility] at 1253 Microscopic Description The stratum corneum is thickened by orthokeratosis and parakeratosis. The epidermis is of variable thickness with areas of relative hyperplasia. The keratinocytes show a variable degree of nuclear atypia that focally involves the full thickness of the epidermis. There is nuclear enlargement, dispolarity and overlap. Mitotic figures are noted in superficial layers of the epidermis. The dermis is marked by solar elastosis, vascular ectasia, and a lymphohistiocytic infiltrate. 11/15/2019 12:53 EDT [facility] Clinical History Nonhealing skin lesion left base of neck 11/15/2019 12:53 EDT [facility] Gross Description A. Received in formalin labelled with proper patient identification (initials S, D) and left base of neck is a 1.0 x 1.0 x 0.1 cm irregular shave of firm castillo-white skin. The margin is inked. The specimen is trisected and entirely submitted in A1. Mayra Glo 11/14/2019 16:21 11/15/2019 12:53 EDT [facility] Scanned Images 11/15/2019 12:53 T [facility] Tissue TISSUE SPECIMEN FROM SKIN / Unknown 11/10/2019 14:55 EDT 11/14/2019 15:44 EDT Rivas Peterson DO PATHOLOGY ORDER PAVEL [facility] [address] [place] [address] documented in this encounter Visit Diagnoses Diagnosis Neoplasm of unspecified behavior of bone, soft tissue, and skin documented in this encounter Care Teams Casting Plug Assembler Relationship Specialty Start Date End Date Bryant Crain MD [address] [place] [address] PCP - General 05/04/15 05/17/23 Elba Jett MD [address] [place] [phone] PCP - General Family Medicine - Primary Care 05/18/23 Carlos Ha NP [address] [place] [address] [address] [place] [address] Consulting Clinician Cardiovascular Disease 09/14/21 documented as of this encounter
--- OUTSIDE RECORDS SUMMARY | 2024-01-07 11:15 | XMS_ITS | Encounter Summary ---
Author Organization [facility] Address [address] [place] [address] Care Team Providers Care Firer Glost Kiln Name Role Phone Bryant Crain MD Primary Care Provider [phone] Encounter Details Date Type Department Care Team (Late st Contact Info) Description 05/13/2020 Orders Only [facility] Cardiology Clinic [address] [place] [address] Ana Epperson, RAHEEM Status post placement of [...] Description 03/08/2024 9:30 EDT Ancillary Procedure [facility] Cardiology - [place] [address] [place] [address] 03/08/2024 10:15 EDT Ancillary Procedure [facility] Cardiology [facility] [address] [place] [address] 04/05/2024 10:00 EDT Ancillary Procedure [facility] Cardiology Clinic [address] [place] [address] 04/05/2024 10:00 EDT Office Visit [facility] Clinic [address] [place] [address] Carlos Macario NP 130 [facility] [address] [place] [address] documented as of this encounter Procedures Procedure Name Priority Date/Time Associated Diagnosis Comments CARDIAC IMPLANT CHECK - REMOTE MONITOR Routine 05/19/2020 13:15 EST Status post placement of implantable loop recorder documented in this encounter Results * CARDIAC IMPLANT CHECK - REMOTE - LOOP RECORDER (ILR) (05/19/2020 13:15 EST) Anatomical Region Laterality Modality Device Narrative 05/19/2020 13:16 EST I have reviewed the implantable loop recorder interrogation. ??I agree with the findings. See scanned document for details of remote download. CARLOS MACARIO APRN Procedure Note Carlos Macario APRN - 05/19/2020 I have reviewed the implantable loop recorder interrogation. I agree withthe findings. See scanned document for details of remote download. CARLOS MACARIO APRN Ana Epperson NP CV IMPLANTABLE CARDI AC DEVICE documented in this encounter Visit Diagnoses Diagnosis Status post placement of implantable loop recorder- Primary Other specified cardiac device in situ documented in this encounter Care Teams Firer Glost Kiln Relationship Specialty Start Date End Date Bryant Crain MD [address] [place], [place] [id number] PCP - General 05/04/15 05/17/23 documented as of this encounter
--- OUTSIDE RECORDS SUMMARY | 2024-01-07 11:15 | XMS_ITS | Encounter Summary ---
Author Organization [facility] Address [address] [place] [address] Care Team Providers Care Induction Brazer Name Role Phone Bryant Crain MD Primary Care Provider [phone] Reason for Visit * Reason Onset Date Comments Pacemaker/Device Check 10/05/2019 Encounter Details Date Type Department Care Team (Late st Contact Info) Description 10/05/2019 Telephone [facility] Cardiology Clinic [address] [place] [address] Ana Epperson NP Pacemaker/Device Check Social History Tobacco Use Types Packs/Day Years [...] 11:07 EST documented as of this encounter Miscellaneous Notes * Telephone Encounter - Fan Schaefer RN - 10/05/2019 3663 EDT Study Result Remote transmission of ILR reviewed. Good battery status. No arrhythmias, no symptoms. See scanned documents for full details. Per JUSTIN Sanchez. Spoke with pt on the phone and let her know there were no arrhythmias detected and had good batterystatus. * Telephone Encounter - Nestor Espinosa - 10/05/2019 1327 EDT Pt called looking for the results of her remote device check. She would like a call back on her cell phone to dicuss documented in this encounter Plan of Treatment Upcoming Encounters Date Type Department Care Team (Late st Contact Info) Description 03/08/2024 9:30 EDT Ancillary Procedure [facility] Cardiology - [address] [place] [address] 03/08/2024 10:15 EDT Ancillary Procedure [facility] Cardiology - [address] [place] [address] 04/05/2024 10:[address] [facility] Cardiology Clinic [address] [place] [address] 04/05/2024 10:[address] [facility] Cardiology Clinic [address] [place] [address] Carlos Ha NP 130 [facility] [address] [place] [phone] documented as of this encounter Visit Diagnoses Not on filedocumented in this encounter Care Teams Induction Brazer Relationship Specialty Start Date End Date Bryant Crain MD [address] [place] [address] PCP - General 05/04/15 05/17/23 documented as of this encounter
--- OUTSIDE RECORDS SUMMARY | 2024-01-07 11:15 | XMS_ITS | Encounter Summary ---
Author Organization [facility] Address [address] [place] [address] Care Team Providers Care Leaf Fat Scraper Name Role Phone Bryant Crain MD Primary Care Provider [phone] Encounter Details Date Type Department Care Team (Late st Contact Info) Description 08/16/2019 Orders Only [facility] Cardiology Clinic [address] [place] [address] Ana Epperson, RAHEEM Status post placement [...] Ancillary Procedure [facility] Cardiology - [facility] [place] [address] 03/08/2024 10:15 EDT Ancillary Procedure [facility] Cardiology - [facility] [address] [place], [place] [id number] 04/05/2024 10:00 EDT Ancillary Procedure [facility] Cardiology Clinic [address] [place] [address] 04/05/2024 10:00 EDT Office Visit [facility] Cardiology Clinic [address] [place] [address] Carlos Ha NP 130 [facility] [address] [place] [address] documented as of this encounter Procedures Procedure Name Priority Date/Time Associated Diagnosis Comments CARDIAC IMPLANT CHECK - REMOTE MONITOR Routine 08/18/2019 10:27 EST Status post placement of implantable loop recorder documented in this encounter Results * CARDIAC IMPLANT CHECK - REMOTE - LOOP RECORDER (ILR) (08/18/2019 10:27 EST) Anatomical Region Laterality Modality Device Narrative 08/18/2019 10:29 EST [facility] Cardiology ILR Visit Casting Finisher: [employer] Device Type: Implantable loop recorder Service: Remote ? Implant Date: 11/09/2017 Indication: Cryptogenic CVA Battery Longevity: good Symptom: 0 Tachycardia: 0 Bradycardia: 0 Pause: 0 AF: 0 Impression: There is adequate battery longevity. The leads and device are functioning normally. The patient will follow up In office in 3 months. Carlos Ha APRN Procedure Note Carlos Ha APRN - 08/18/2019 [facility] Cardiology ILR Visit Casting Finisher: [employer] Device Type: Implantable loop recorder Service: Remote Implant Date: 11/09/2017 Indication: Cryptogenic CVA Battery Longevity: good Symptom: 0 Tachycardia: 0 Bradycardia: 0 Pause: 0 AF: 0 Impression: There is adequate battery longevity. The leads and device arefunctioning normally. The patient will follow up In office in 3 months. Carlos Ha APRN Ana Epperson NP CV IMPLANTABLE CARDI AC DEVICE documented in this encounter Visit Diagnoses Diagnosis Status post placement of implantable loop recorder- Primary Other specified cardiac device in situ documented in this encounter Care Teams Leaf Fat Scraper Relationship Specialty Start Date End Date Bryant Crain MD [address] [place], [place] [phone] PCP - General 05/04/15 05/17/23 documented as of this encounter
--- OUTSIDE RECORDS SUMMARY | 2024-01-07 11:15 | XMS_ITS | Encounter Summary ---
Author Organization [facility] Address [address] [place] [address] Care Team Providers Care Examination Scorer Name Role Phone Bryant Crain MD Primary Care Provider [phone] Encounter Details Date Type Department Care Team (Late st Contact Info) Description 11/14/2019 Orders Only [facility] Cardiology Clinic [address] [place] [address] Ana Epperson, RAHEEM Status post placement [...] Info) Description 03/08/2024 9:30 EDT Ancillary Procedure [facility] Cardiology - [facility] [place] [address] [place] [address] 03/08/2024 10:15 EDT Ancillary Procedure [facility] Cardiology - [facility] [address] [place], [place] [phone] 04/05/2024 10:00 EDT Ancillary Procedure [facility] Cardiology Clinic [address] [place] [address] 04/05/2024 10:00 EDT Office Visit [facility] Cardiology Clinic [address] [place] [address] Carlos Ha, SUPERVISOR POWDER AND PRIMER CANNING 130 [facility] [address] [place] [address] documented as of this encounter Procedures Procedure Name Priority Date/Time Associated Diagnosis Comments CARDIAC IMPLANT CHECK - REMOTE MONITOR Routine 11/14/2019 13:29 EDT Status post placement of implantable loop recorder documented in this encounter Results * CARDIAC IMPLANT CHECK - REMOTE - LOOP RECORDER (ILR) (11/14/2019 13:29 EDT) Anatomical Region Laterality Modality Device Narrative 11/14/2019 13:30 EDT Remote transmission of ILR reviewed. OK battery status. No arrhythmias, no symptoms. See scanned documents for full details. Procedure Note Orquidea Bowers APRN - 11/14/2019 Remote transmission of ILR reviewed. OK battery status. No arrhythmias, nosymptoms. See scanned documents for full details. Ana Epperson SUPERVISOR POWDER AND PRIMER CANNING CV IMPLANTABLE CARDI AC DEVICE documented in this encounter Visit Diagnoses Diagnosis Status post placement of implantable loop recorder- Primary Other specified cardiac device in situ documented in this encounter Care Teams Examination Scorer Relationship Specialty Start Date End Date Bryant Crain MD [address] [place], [place] [phone] PCP - General 05/04/15 05/17/23 documented as of this encounter
--- OUTSIDE RECORDS SUMMARY | 2024-01-07 11:15 | XMS_ITS | Encounter Summary ---
Author Organization [facility] Address [address] [place] [address] Care Team Providers Care Mine Boss Name Role Phone Bryant Crain MD Primary Care Provider [phone] Reason for Visit * Reason Onset Date Comments Other 12/05/2019 Encounter Details Date Type Department Care Team (Late st Contact Info) Description 12/05/2019 Telephone [facility] Cardiology Clinic [address] [place] [address] Ana Epperson, CREATIVE SERVICES COORDINATOR Other Social History Tobacco Use Types Packs/Day [...] * Telephone Encounter - Nestor Espinosa - 12/05/2019 8504 EDT Note from 11/23/19 [facility] addendum faxed to Dr. Peterson at [place] * Telephone Encounter - Ana Epperson APRN - 12/05/2019 1524 EDT Can you send my addended note to the surgeon in [place] now that I have added the result of her stress test so she can go forward with her surgery? Angela Perez documented in this encounter Plan of Treatment Upcoming Encounters Date Type Department Care Team (Late st Contact Info) Description 03/08/2024 9:30 EDT Ancillary Procedure [facility] Cardiology - [address] [place] [address] 03/08/2024 10:15 EDT Ancillary Procedure [facility] Cardiology [address] [place] [address] 04/05/2024 10:00 EDT Ancillary Procedure [facility] Cardiology Clinic [address] [place] [address] 04/05/2024 10:00 EDT Office Visit [facility] Cardiology [address] [address] Carlos Ha NP 130 [facility] [address] [place] [phone] documented as of this encounter Visit Diagnoses Not on filedocumented in this encounter Care Teams Mine Boss Relationship Specialty Start Date End Date Bryant Crain MD [address] [place] [address] PCP - General 05/04/15 05/17/23 documented as of this encounter
--- OUTSIDE RECORDS SUMMARY | 2024-01-07 11:15 | XMS_ITS | Encounter Summary ---
Author Organization [facility] Address [address] [place] [address] Care Team Providers Care Drying And Winding Supervisor Name Role Phone Bryant Crain MD Primary Care Provider [phone] Reason for Visit * (Routine) - Order Cancelled Specialty Diagnoses / Procedures Referred By Charo daniel Referred To Contact Diagnoses Status post placement of implantable loop recorder Procedures CARDIAC IMPLANT CHECK - IN CLINIC Ana Epperson, RETAIL AND RESTAURANT 130 [facility] [address] [address] Referral ID Status Reason Start Date Expiration Date V isits Requested Visits Authorized [id number] Order Cancelled 06/05/2019 1 1 Encounter Details Date Type Department Care Team (Latest Contact Info) Description 02/23/2020 12:00 EDT Ancillary Procedure [facility] Cardiology Clinic [address] [place] [address] Status post placement of implantable loop recorder [...] Info) Description 03/08/2024 9:30 EDT Ancillary Procedure [facility] Cardiology - [facility] [address] [place] [address] 03/08/2024 10:15 EDT Ancillary Procedure [facility] Cardiology - [facility] [address] [place] [address] 04/05/2024 10:00 EDT Ancillary Procedure [facility] Cardiology Clinic [address] [place] [id number] 04/05/2024 10:00 EDT Office Visit [facility] Cardiology Clinic [address] [place] [address] Carlos Macario, RETAIL AND RESTAURANT [address] [place] [address] [place] [phone] documented as of this encounter Procedures Procedure Name Priority Date/Time Associated Diagnosis Comments CARDIAC IMPLANT CHECK - IN CLINIC Routine 02/23/2020 12:36 EDT Status post placement of implantable loop recorder documented in this encounter Results * CARDIAC IMPLANT CHECK - IN CLINIC - LOOP RECORDER (ILR) W/ PROG (02/23/2020 12:36 EDT) Anatomical Region Laterality Modality Device Narrative 02/23/2020 12:37 EDT I have reviewed the implantable loop recorder interrogation. ??I agree with the findings. See office note associated with today's visit for device details. CARLOS MACARIO APRN Procedure Note Carlos Macario APRN - 02/23/2020 I have reviewed the implantable loop recorder interrogation. I agree withthe findings. See office note associated with today's visit for devicedetails. CARLOS MACARIO APRN Ana Epperson NP CV IMPLANTABLE CARDI AC DEVICE documented in this encounter Visit Diagnoses Diagnosis Status post placement of implantable loop recorder Other specified cardiac device in situ documented in this encounter Care Teams Drying And Winding Supervisor Relationship Specialty Start Date End Date Bryant Crain MD [address] [place] [address] PCP - General 05/04/15 05/17/23 documented as of this encounter
--- OUTSIDE RECORDS SUMMARY | 2024-01-07 11:15 | XMS_ITS | Encounter Summary ---
Author Organization [facility] Address [address] [place] [address] Care Team Providers Care Retrimmer Name Role Phone Bryant Crain MD Primary Care Provider [phone] Encounter Details Date Type Department Care Team (Late st Contact Info) Description 11/10/2019 Orders Only [facility] Cardiology Clinic [address] [place] [address] Ana Epperson, RAHEEM Status post placement [...] Info) Description 03/08/2024 9:30 EDT Ancillary Procedure [facility] Cardiology - [facility] [place] [address] 03/08/2024 10:15 EDT Ancillary Procedure [facility] Cardiology - [facility] [address] [place], [place] [phone] 04/05/2024 10:00 EDT Ancillary Procedure [facility] Cardiology Clinic [address] [place] [address] 04/05/2024 10:00 EDT Office Visit [facility] Cardiology Clinic [address] [place] [address] Carlos Ha NP 130 [facility] [address] [place] [address] documented as of this encounter Procedures Procedure Name Priority Date/Time Associated Diagnosis Comments CARDIAC IMPLANT CHECK - REMOTE MONITOR Routine 11/10/2019 9:29 EDT Status post placement of implantable loop recorder documented in this encounter Results * CARDIAC IMPLANT CHECK - REMOTE - LOOP RECORDER (ILR) (11/10/2019 9:29 EDT) Anatomical Region Laterality Modality Device Narrative 11/10/2019 9:30 EDT I have reviewed the implantable loop recorder interrogation. ??I agree with the findings. See scanned document for details of remote download. Carlos Ha APRN Procedure Note Carlos Ha APRN - 11/10/2019 I have reviewed the implantable loop recorder interrogation. I agree withthe findings. See scanned document for details of remote download. Carlos Ha APRN Ana Epperson NP CV IMPLANTABLE CARDI AC DEVICE documented in this encounter Visit Diagnoses Diagnosis Status post placement of implantable loop recorder- Primary Other specified cardiac device in situ documented in this encounter Care Teams Retrimmer Relationship Specialty Start Date End Date Bryant Crain MD [address] [place], [place] [phone] PCP - General 05/04/15 05/17/23 documented as of this encounter
--- OUTSIDE RECORDS SUMMARY | 2024-01-07 11:15 | XMS_ITS | Encounter Summary ---
Author Organization [facility] Address [address] [place] [address] Care Team Providers Care Solutions Consultant Name Role Phone Bryant Crain MD Primary Care Provider [phone] Encounter Details Date Type Department Care Team (Late st Contact Info) Description 06/11/[address] [facility] Cardiology Clinic [address] [place], [place] [id number] Carlos Ha NP 130 [facility] [address] [place] [address] Cryptogenic stroke (HCC-CMS) (Primary Dx) [...] Procedure [facility] Cardiology - [facility] [address] [place] [address] 03/08/2024 10:15 EDT Ancillary Procedure [facility] Cardiology - [facility] [address] [place] [address] 04/05/2024 10:[address] [facility] Cardiology Clinic [address] [place] [address] 04/05/2024 10:[address] [facility] Cardiology Clinic [address] [place] [phone] Carlos Ha NP [address] [place] [address] [address] [place] [phone] documented as of this encounter Visit Diagnoses Diagnosis Cryptogenic stroke ([facility])- Primary Unspecified cerebral artery occlusion with cerebral infarction documented in this encounter Care Teams Solutions Consultant Relationship Specialty Start Date End Date Bryant Crain MD [address] [place], [place] [phone] PCP - General 05/04/15 05/17/23 documented as of this encounter
--- OUTSIDE RECORDS SUMMARY | 2024-01-07 11:15 | XMS_ITS | Encounter Summary ---
Author Organization [facility] Address [address] [place] [address] Care Team Providers Care Tuber Machine Operator Name Role Phone Bryant Crain MD Primary Care Provider Reason for Referral * (Routine) - Closed Specialty Diagnoses / Procedures Referred By Charo daniel Referred To Contact Diagnoses Status post placement of implantable loop recorder Procedures CARDIAC IMPLANT CHECK - IN CLINIC Ana Epperson, RAHEEM [address] [facility], [facility] [address] [address] Referral ID Status Reason Start Date Expiration Date Visits Re quested Visits Authorized [id number] Closed 06/05/2019 1 1 Reason for Visit * Reason Comments Pacemaker/Device Check Medtronic Reveal Check Encounter Details Date Type Department Care Team (Latest Contact Info) Description 06/05/2019 8:45 EST Office Visit [facility] [address] [place] [address] Ana Epperson NP Status post placement of implantable loop recorder (Primary Dx); Paroxysmal atrial fibrillation (HCC-CMS); 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 use of terminal press operator 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; Hypomagnesemia; Mixed hyperlipidemia Social History Tobacco Use Types Packs/Day Years Used Date Smoking Tobacco: Never Assessed Sex and Gender Information Value Date Recorded Sex Assigned at Not on file Gender Identity Female 06/01/2019 10:00 EST Sexual Orientation Not on file documented as of this encounter Last Filed Vital Signs Vital Sign Reading Time Taken Comments Blood Pressure 120/62 06/05/2019 0850 EST Pulse 68 06/05/2019 0850 EST Temperature - - Respiratory Rate - - Oxygen Saturation 95% 06/05/2019 0850 EST Inhaled Oxygen Concentration - - Weight 75.3 kg (166 lb) 06/05/2019 0850 EST Height 162.6 cm (5' 4) 06/05/2019 0850 EST Body Mass Index 28.49 06/05/2019 0850 EST documented in this encounter Progress Notes * Ana Epperson, MECHANICAL DESIGN DRAFTER - 06/05/2019 0845 EST CC: Pacemaker/Device Check (Scardstronic Reveal Check) HPI: Joanna Hart is a 69 y.o. year-old female I am seeing in follow up for her loop recorder/REVEAL device for cryptogenic stroke; Dr. Paul implanted 11/09/17. She had her CVA Fall of 2016; says she never had any symptoms. On December 24, 2018 she awoke with PND, went to hospital in [place] for 3 days; saysshe was very sick; confused, high white count; also had GI distress and UTI. Was told she was in AF. She ultimately had IV antibiotics and recovered. Has not felt dyspneic or had PND since. ROS: Denies: SOB, RODRIGUEZ, orthopnea, PND, palps., CP, wt. Gain, LE edema. Pt. Will be in [place] from To September 17. The rest if the pertinent 10 point review of systems is negative other than mentioned in HPI PMH: Patient Active Problem List Diagnosis ??? Cerebrovascular accident (CVA) (HCC-CMS) ??? Current use of terminal press operator 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 ??? long-term current use of insulin (HCC-CMS) ??? Dyslipidemia ??? Essential hypertension ??? Nonrheumatic aortic valve stenosis ??? Paroxysmal atrial fibrillation (HCC-CMS) ??? Status post placement of implantable loop recorder ??? Diabetes mellitus, type 2 (HCC-CMS) ??? Rosacea ??? Dyspnea ??? Hypomagnesemia ??? Mixed hyperlipidemia SH/FH: reviewed and updated MEDICATIONS: Current Outpatient Medications on File Prior to Visit Medication Sig Dispense Refill ??? acetaminophen (TYLENOL 8 HOUR) 650 mg CR tablet 2 tab(s) orally twice a day, only as needed ??? apixaban (ELIQUIS) 5 mg tablet Take 5 mg by mouth daily. ??? aspirin 81 mg EC tablet [...] mL subcutaneous pen 1 pen dose ??? gabapentin (NEURONTIN) 300 mg capsule Take 300 mg by mouth daily. ??? insulin glargine (LANTUS SOLOSTAR U-100 [...] Take 750 mg by mouth daily. ??? pimecrolimus (ELIDEL) 1 % cream 1 sylvain applied topically 2 times a day as needed in the winter only ??? EBEN SCHWARTZ No current facility-administered medications on file prior to visit. ALLERGIES: Allergies not on file PHYSICAL EXAM: Vitals: 06/05/19 0850 BP: 120/62 BP Cuff Location: Left arm BP Patient Position: Sitting BP Cuff Sizes: Adult, regular Pulse: 68 SpO2: 95% Weight: 75.3 kg (166 lb) Height: 162.6 cm (64) GENERAL APPEARANCE: WD,WN, in NAD, pleasant and cooperative NEURO: A & O x3 HEENT: PERRLA. [...] SKIN: warm, dry, without lesions,rashes Device: Brand: ATOMOO REVEAL Implanted: 11/09/[address] Paul for cryptogenic stroke Mode: monitoring Generator: good Optivol: N/A Monitored Events: None Reprogramming: none Impression: Normal function with no arrhythmias The ASCVD Risk score (Chelsea DC Jr., et al., 2013) failed to calculate for the following reasons: The patient has a prior OR or stroke diagnosis DATA: imaging: EKG: @LASTEKG@ Echocardiogram: Stress testing: Lab Results Component Value Date HGB 13.4 03/15/2018 PLT 352 03/15/2018 ASSESSMENT: Problem List Items Addressed This Visit Cardiac/Vasculature Paroxysmal atrial fibrillation (HCC-CMS) Pt. had PAF episode during acute hospitalization for what sounds like sepsis. It is not clear if she received any IV rate control meds. She is not in AF now and has not had PND, SOB, RODRIGUEZ, CP or palps. since then. The episode lasted over 8 hours and is documented on her REVEAL device. This is likelyconfirmation of what may have caused her stroke last year. She is taking Eliquis. I advised her to send transmission and/or come to ER with any future sustained episodes. Will not start any beta marisa at this point. It may have all been r/t her illness. She agrees. We discussed those types of triggers for PAF.? Relevant Orders COMPREHENSIVE METABOLIC PANEL (CMP) Status post placement of implantable loop recorder - Primary Pt's REVEAL LINQ loop recorder is functioning normally. PAF noted during December admission. No furtherA. fib episodes noted. That was the first episode we have detected. There is ample generator life remaining. See scanned documents for interrogation details. Will continue to monitor.? Mixed hyperlipidemia Will recheck lipids today as she is fasting. Relevant Orders LIPID PROFILE (INCLUDES CHOLESTEROL, TRIGLYCERIDES, HDL, LDL) Coagulation/Thromboembolic Current use of terminal press operator 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 Patient is taking and tolerating apixaban without overt signs of bleeding. Will check labs including renal function today. Genitourinary/Reproductive Hypomagnesemia We will go ahead and check magnesium level today as she is taking an oral supplement. Relevant Orders MAGNESIUM Ana Epperson APRN documented in this encounter Miscellaneous Notes * Assessment & Plan Note - Ana Epperson APRN - 06/05/2019 0937 ESTAssociated Problem(s): Mixed hyperlipidemia Will recheck lipids today as she is fasting. * Assessment & Plan Note - Ana Epperson APRN - 06/05/2019 0937 ESTAssociated Problem(s): Hypomagnesemia We will go ahead and check magnesium level today as she is taking an oral supplement. * Assessment & Plan Note - Ana Epperson APRN - 06/05/2019 0935 ESTAssociated Problem(s): Current use of terminal press operator 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 Patient is taking and tolerating apixaban without overt signs of bleeding. Will check labs including renal function today. * Assessment & Plan Note - Ana Epperson APRN - 06/05/2019 0806 ESTAssociated Problem(s): terminal press operator current use of insulin ([facility]-CMS) Pt. is taking and tolerating Eliquis without overt signs of bleeding * Assessment & Plan Note - Ana Epperson APRN - 06/05/2019 0806 ESTAssociated Problem(s): Paroxysmal atrial fibrillation (HCC-CMS) Pt. had PAF episode during acute hospitalization for what sounds like sepsis. It is not clear if she received any IV rate control meds. She is not in AF now and has not had PND, SOB, RODRIGUEZ, CP or palps. since then. The episode lasted over 8 hours and is documented on her REVEAL device. This is likelyconfirmation of what may have caused her stroke last year. She is taking Eliquis. I advised her to send transmission and/or come to ER with any future sustained episodes. Will not start any beta marisa at this point. It may have all been r/t her illness. She agrees. We discussed those types of triggers for PAF.? * Assessment & Plan Note - Ana Epperson, JUSTIN - 06/05/2019 0806 ESTAssociated Problem(s): Status post placement of implantable loop recorder (Resolved 01/05/2023) Pt's REVEAL LINQ loop recorder is functioning normally. PAF noted during December admission. No furtherA. fib episodes noted. That was the first episode we have detected. There is ample generator life remaining. See scanned documents for interrogation details. Will continue to monitor.? documented in this encounter Plan of Treatment Upcoming Encounters Date Type Department Care Team (Late st Contact Info) Description 03/08/2024 9:30 EDT Ancillary Procedure [facility] Cardiology - [facility] [place] [id number] 03/08/2024 10:15 EDT Ancillary Procedure [facility] Cardiology [facility] [place] [id number] 04/05/2024 10:00 EDT Ancillary Procedure [facility] [address] [place] [id number] 04/05/2024 10:00 EDT Office Visit [facility] [address] [place] [address] [id number] Carlos Ha NP [address] [place] [address] [place] [id number] documented as of this encounter Procedures Procedure Name Priority Date/Time Associated Diagnosis Comments CARDIAC IMPLANT CHECK - IN CLINIC Routine 06/05/2019 10:03 EST Status post placement of implantable loop recorder MAGNESIUM Routine 06/05/2019 9:48 EST Status post placement of implantable loop recorder LIPID PROFILE (INCLUDES CHOLESTEROL, TRIGLYCERIDES, HDL, LDL) Routine 06/05/2019 9:48 EST Status post placement of implantable loop recorder COMPREHENSIVE METABOLIC PANEL (CMP) Routine 06/05/2019 9:48 EST Status post placement of implantable loop recorder documented in this encounter Results * CARDIAC IMPLANT CHECK - IN CLINIC - LOOP RECORDER (ILR) W/ PROG (06/05/2019 10:03 EST) Anatomical Region Laterality Modality Device Narrative 06/05/2019 10:05 EST I have reviewed the pacemaker interrogation. ??I agree with the findings below. Procedure Note Ana Epperson, MECHANICAL DESIGN DRAFTER - 06/05/2019 I have reviewed the pacemaker interrogation. I agree with the findingsbelow. Ana Epperson NP CV IMPLANTABLE CARDI AC DEVICE * MAGNESIUM (06/05/2019 9:48 EST) Magnesium 1.90 1.7 - 2.8 mg/dL 06/05/2019 11:06 EST [facility] 06/05/2019 9:48 EST 06/05/2019 9:48 EST Narrative [facility] - 06/05/2019 11:06 EST Does PT Have a Latex Allergy? UNKNOWN Ana Epperson NP CHEMISTRY & BLOOD GA S ORDERABLES [facility] * (ABNORMAL) LIPID PROFILE (INCLUDES CHOLESTEROL, TRIGLYCERIDES, HDL, LDL) (06/05/2019 9:48 EST) Triglyceride 256 <150 mg/dL 06/05/2019 11:06 EST [facility] Comment: Adult: Normal: ?<150 mg/dl ? Borderline High: 150-199 mg/dl ? High: ?200-499 mg/dl ? Very High: >jf=440 Cholesterol 255(H) <200 mg/dL 06/05/2019 11:06 [facility] Comment: Acceptable: ??<200 Borderline: ??200-239 High: ?> or = 240 Chol/HDL Ratio 5.3(H) 0 - 4.5 06/05/2019 11:06 [facility] Comment: DESIRABLE RATIO IS LESS THAN 4.1 PATIENTS ARE CONSIDERED AT RISK: WOMEN RATIO >5 MEN RATIO >6 FASTING? - [facility] Yes 9 9:48 [facility] HDL 48 40 - 60 mg/dL 06/05/2019 11:06 [facility] Comment: ?? Reference Range Low: ? < 40 ??mg/dL Normal: ??40-60 mg/dL High: ?>= 60 mg/dL LDL CHOLESTEROL - [facility] 156(H) 60 - 100 mg/dL 06/05/2019 11:06 [facility] Non HDL Cholesterol 207 mg/dl 06/05/2019 11:06 [facility] Comment: Desirable: ?Less than 130 Borderline High: ??130-159 High: ? 160-189 Very High: ?Greater than or equal to 190 06/05/2019 9:48 EST 06/05/2019 9:48 EST Narrative [facility] - 06/05/2019 11:06 EST Does PT Have a Latex Allergy? UNKNOWN Ana Epperson NP CHEMISTRY & BLOOD GA S ORDERABLES [facility] * (ABNORMAL) COMPREHENSIVE METABOLIC PANEL (CMP) (06/05/2019 9:48 EST) Albumin % 4.4 3.4 - 4.9 g/dL 06/05/2019 11:06 [facility] ALKALINE PHOSPHATASE - [facility] 49 38 - 126 U/L 06/05/2019 11:06 [facility] BILIRUBIN TOTAL 0.6 0.2 - 1.3 mg/dL 06/05/2019 11:06 [facility] BUN - [facility] 17 10 - 26 mg/dL 06/05/2019 11:06 [facility] CALCIUM - [facility] 10.9(H) 8.5 - 10.5 mg/dL 06/05/2019 11:06 [facility] Chloride 105 96 - 110 mmol/L 06/05/2019 11:06 [facility] CO2 Total 25 22 - 32 mEq/L 06/05/2019 11:06 [facility] CREATININE 1.02 0.52 - 1.04 mg/dL 06/05/2019 11:06 [facility] eGFR 54 06/05/2019 11:06 [facility] Comment: Stage 3: Moderate renal impairment is defined as GFR 30-59 Multiply result by 1.210 for patients. eGFR calculated using the IDMS-traceable MDRD Study Equation. ??(effective 04/23/2014) Anion Gap 9 0 - 18 06/05/2019 11:06 [facility] GLUCOSE - [facility] 103(H) 70 - 100 mg/dL 06/05/2019 11:06 [facility] Potassium 5.1(H) 3.5 - 5.0 mEq/L 06/05/2019 11:06 [facility] Sodium 139 136 - 145 mEq/L 06/05/2019 11:06 [facility] TOTAL PROTEIN - [facility] 7.6 6.2 - 8.2 gm/dL 06/05/2019 11:06 [facility] SGOT/AST - [facility] 31 14 - 36 U/L 06/05/2019 11:06 [facility] SGPT/ALT - [facility] 28 9 - 52 U/L 9 11:06 [facility] 06/05/2019 9:48 EST 06/05/2019 9:48 EST Narrative [facility] - 06/05/2019 11:06 EST Does PT Have a Latex Allergy? UNKNOWN Ana Epperson ELECTRONICS TECHNOLOGY DEPARTMENT CHAIR CHEMISTRY & BLOOD GA S ORDERABLES [facility] documented in this encounter Visit Diagnoses Diagnosis Status post placement of implantable loop recorder- Primary Other specified cardiac device in situ Paroxysmal atrial fibrillation (HCC-CMS) Atrial fibrillation Current use of snf 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 Long-term (current) use of anticoagulants Hypomagnesemia Disorders of magnesium metabolism Mixed hyperlipidemia documented in this encounter Care Teams Tuber Machine Operator Relationship Specialty Start Date End Date Bryant Crain MD [address] [place] [address] PCP - General 05/04/15 05/17/23 documented as of this encounter
--- OUTSIDE RECORDS SUMMARY | 2024-01-07 11:15 | XMS_ITS | Encounter Summary ---
Author Organization [facility] Address [address] [place] [address] Care Team Providers Care Transportation Technician Name Role Phone Bryant Crain MD Primary Care Provider [phone] Reason for Referral * Consult (Routine) - Closed Specialty Diagnoses / Procedures Referred By Charo daniel Referred To Contact Orthopedic Surgery Diagnoses Type 2 diabetes mellitus with hyperglycemia, with long-term current use of insulin ([facility]) Sarika Zamudio NP [address] [place] [address] [facility] [address] [place] [address] Referral ID Status Reason Start Date Expiration Date V isits Requested Visits Authorized [id number] Closed Specialty Services Required 07/10/2020 1 1 Question Answer Reason for Request: TIIDM Reason for Visit * Reason Comments Diabetes Encounter Details Date Type Department Care Team (Late st Contact Info) Description 07/10/2020 11:15 EST Office Visit [facility] Endocrinology [address] [place] [address] Sarika Zamudio NP [address] [facility] [address] [place] [address] Type 2 diabetes mellitus with hyperglycemia, with long-term current use of insulin ([facility]) (Primary Dx); Essential hypertension; Mixed hyperlipidemia; Stage 3b chronic kidney disease Social History [...] Sign Reading Time Taken Comments Blood Pressure 126/84 07/10/2020 1118 EST Pulse 68 07/10/2020 1118 EST Temperature - - Respiratory Rate 18 07/10/2020 1118 EST Oxygen Saturation - - Inhaled Oxygen Concentration - - Weight 76.2 kg (168 lb) 07/10/2020 1118 EST Height - - Body Mass Index [...] * Patient Instructions* Sarika Zamudio APRN - 07/10/2020 11:15 EST Decrease metformin 750 mg twice daily Switch lantus to AM and increase to 45 units. Given humalog SS for meals: 100-150 6 units, 150-200 8 units, 200-250 10 units, 250-300 12 units Continue checking Blood sugars 4 X/day. Bring food log to next visit. Call me in 1-2 week with BG's. F/up in clinic in 1 month. documented in this encounter Progress Notes * Heidi Moore RN - 07/10/2020 1115 EST Needs eye, foot and micro Labs ordered, letter sent Last seen 08/[address] Ren Lab Results Component Value Date UABCR 147.5 10/18/2017 UABCR 147.5 10/18/2017 Glucose-185 * Sarika Zamudio APRN - 07/10/2020 1115 EST Reason for Visit: DM f/up PCP: Dr. Crain OTHER PROVIDERS: Carlos Ha NP Joanna Hart is a 70 y.o. female who presented to the clinic for a follow-up in [facility], with a history of DM for 14 yrs. Hx of HTN, PAF, HLT, cardiomyopathy, CVA X2, hypomag. Previously saw Dr. Jeffries, she believes about 1 year ago. Notes having 2 strokes about 2 year ago within a week of each other. She reports having some short term memory deficits from this. She has no feeling on BLLE and left arm from both of her strokes. She does have mobility of her extremities. She has started taking repatha for the past 6 months or so and feels her BG's have increase since this. She lives with her at home. Was recently started on humalog with her PCP. Takes 10 units before her meals. She feels this is isnt working for her. Will have a yo-yo effect on this. BG >100 take 10 units <100 no insulin. Notes polyuria and frequent UTI's. Has had ED visits d/t this. Sees a urologist in [facility] for chronic concerns. [facility] DM: unsure if father had DM 4 of her siblings have TIIDM Recent A1C: 8.4 (06/2020) Diabetic Medications: lantus 42 units at bedtime Metformin XR 750 mg twice daily and an extra 500 mg at night. humalog 10 units with meals. Farxiga and trulicity intolerant-gave her abdominal pain. Current monitoring regimen: [...] (within one year): overdue. Has provider in [place] that she prefers. Has not been ableto go d/t COVID. No symptoms at this time. Last dental exam: overdue. Will schedule. CVD,PVD,CAD: HTN, HLD,CVA Statin: repatha injections. Aspirin: yes ACEI/ARB: candesartan 32 mg Prior visit with hyperbaric nurse: yes, JALEN Hyman. Foot care: self, would like to see podiatry. Comorbidities: Retinopathy: no Nephropathy/Kidney function: GFR 44 (05/2020) MCR up to date? No 147 (2018) Neuropathy: no sensation in BL feet/legs Review of Systems Constitutional: Negative. Eyes: Negative. Endocrine: Positive for polyuria. Neurological: Positive for numbness (BLLE). Physical Exam Constitutional: Appearance: Normal appearance. HENT: Head: Normocephalic and atraumatic. Neck: Musculoskeletal: Normal range of motion and neck supple. Cardiovascular: Rate and Rhythm: Normal rate. Pulses: Dorsalis pedis pulses are 1+ on the right side and 1+ on the left side. Posterior tibial pulses are 1+ on the right side and 1+ on the left side. Heart sounds: Murmur present. Pulmonary: Effort: Pulmonary effort is normal. Breath sounds: Normal breath sounds. Feet: Right foot: Protective Sensation: 4 sites tested. 0 sites sensed. Skin integrity: Skin integrity normal. Toenail Condition: Right toenails are normal. Left foot: Protective Sensation: 3 sites tested. 0 sites sensed. Skin integrity: Skin integrity normal. Toenail Condition: Left toenails are normal. Skin: General: Skin is warm and dry. Neurological: Mental Status: She is alert and oriented to person, place, and time. Psychiatric: Mood and Affect: Mood normal. Behavior: Behavior normal. Thought Content: Thought content normal. Hemoglobin A1c, POC Date Value Ref Range Status 07/10/2020 8.4 (A) 5.7 % Final No results found for: MICROALBUR, [id number] Lab Results Component Value Date NA 137 11/23/2019 K 5.1 (H) 11/23/2019 CL 108 11/23/2019 CO2 20 (L) 11/23/2019 BUN 26 11/23/2019 GLU 199 (H) 11/23/2019 CA 11.2 (H) 11/23/2019 Joanna Hart is a 70 y.o. female who presented to the clinic for a follow-up in [facility], with a history of DM for 14 yrs. Problem List Items Addressed This Visit Endocrine/Metabolic Diabetes mellitus, type 2 (HCC-CMS) - Primary Decrease metformin 750 mg BID Switch lantus to AM and increase to 45 units. Given humalog SS for meals: 100-150 6 units, 150-200 8 units, 200-250 10 units, 250-300 12 units Continue checking BG's 4 X/day. Bring food log to next visit. Call me in 1-2 week with BG's. F/up in clinic in 1 month. Would like to switch her to tresiba at f/up when her lantus supply has diminished. Will look to start her on CGM at f/up. Relevant Medications HUMALOG KWIKPEN INSULIN 100 unit/mL injectable pen Other Relevant Orders URINE [id number] RATIO (ACR) COMPREHENSIVE METABOLIC PANEL (CMP) LIPID PROFILE (INCLUDES CHOLESTEROL, TRIGLYCERIDES, HDL, LDL) POCT GLUCOSE, MANUAL ENTRY (Completed) POCT HEMOGLOBIN A1C (Completed) AMB CONS/FOLLOW UP PODIATRY Genitourinary/Reproductive Stage 3b chronic kidney disease GFR 44. Decrease metformin xr to 750 mg BID. Will continue to decrease and monitor kidney function. Cardiac/Vasculature Essential hypertension Normotensive today. Continue current regimen. Managed by cardiology, SENIOR TECHNICAL RECRUITER Ha. Mixed hyperlipidemia Controlled on repatha. Patient Goals: A1C <7.5% Exercise: 150 minutes of CV exercise/week. Handouts provided for ongoing self education I spent a total of 55 minutes on the date of this encounter meeting with the patient and reviewing documentation/coordinating care as described in the above note. documented in this encounter Miscellaneous Notes * Assessment & Plan Note - Sarika Zamudio APRN - 07/10/2020 1235 EST Associated Problem(s): Stage 3b chronic kidney disease ([facility]) GFR 44. Decrease metformin xr to 750 mg BID. Will continue to decrease and monitor kidney function. * Assessment & Plan Note - Sarika Zamudio APRN - 07/10/2020 1204 EST Associated Problem(s): Diabetes mellitus, type 2 ([facility]) Decrease metformin 750 mg BID Switch lantus to AM and increase to 45 units. Given humalog SS for meals: 100-150 6 units, 150-200 8 units, 200-250 10 units, 250-300 12 units Continue checking BG's 4 X/day. Bring food log to next visit. Call me in 1-2 week with BG's. F/up in clinic in 1 month. Would like to switch her to tresiba at f/up when her lantus supply has diminished. Will look to start her on CGM at f/up. * Assessment & Plan Note - Sarika Zamudio APRN - 07/10/2020 1143 EST Associated Problem(s): Mixed hyperlipidemia Controlled on repatha. * Assessment & Plan Note - Sarika Zamudio APRN - 07/10/2020 1142 EST Associated Problem(s): Essential hypertension Normotensive today. Continue current regimen. Managed by cardiology, RAHEEM Ha. documented in this encounter Plan of Treatment Upcoming Encounters Date Type Department Care Team (Late st Contact Info) Description 03/08/2024 9:30 EDT Ancillary Procedure [facility] Cardiology - [facility] [address] [place] [address] 03/08/2024 10:15 EDT Ancillary Procedure [facility] Card[facility] - [place] [address] [place] [address] 04/05/2024 10:00 EDT Ancillary Procedure [facility] [address] [place] [id number] 04/05/2024 10:00 EDT Office Visit [facility] [address] [place] [phone] Carlos Ha NP [address] [address] [place] [phone] Scheduled Referrals Name Type Priority Associated Diagnoses Orde r Schedule AMB CONS/FOLLOW UP PODIATRY Outpatient Referral Routine Type 2 diabetes mellitus with hyperglycemia, with long-term current use of insulin ([facility]) Ordered: 07/10/2020 documented as of this encounter Procedures Procedure Name Priority Date/Time Associated Diagnosis Comments MICROALBUMIN, URINE Routine 07/10/2020 1 1:01 EST Type 2 diabetes mellitus with hyperglycemia, with long-term current use of insulin ([facility]) POCT GLUCOSE, MANUAL ENTRY Routine 07/10/2020 Type 2 diabetes mellitus with hyperglycemia, with long-term current use of insulin ([facility]) POCT HEMOGLOBIN A1C Routine 07/10/2020 Type 2 diabetes mellitus with hyperglycemia, with long-term current use of insulin ([facility]) documented in this encounter Results * (ABNORMAL) MICROALBUMIN, URINE (07/10/2020 11:01 EST) Albumin, Urine 43.70(H) <1.7 mg/dL 07/10/2020 17:31 EST [facility] Lab Urine Albumin to Creatinine Ratio 375.4 ug/mg 07/10/2020 17:31 EST [facility] Comment: Normal: <30 ug/mg Creat Microalbuminuria: 30-300 ug/mg Creat Clinical albuminuria: >300 ug/mg Creat Creatinine, Urine 116.40 mg/dL 07/10/2020 16:44 EST [facility] 07/10/2020 11:0 1 EST 07/10/2020 15:30 EST Sarika Zamudio NP HEMATOLOGY & PF4 ORDERABLES Performing Organization Address City/[facility]/ZIP Co de Phone Number [facility] [address] [place] [address] * (ABNORMAL) POCT HEMOGLOBIN A1C (07/10/2020) Hemoglobin A1c, POC 8.4(A) 5.7 % [facility] POINT OF CARE Blood CAPILLARY BLOOD / Unknown 07/10/2020 Sarika Zamudio NP POINT OF CARE FUNMILAYO T ORDERABLES [facility] POINT OF CARE * (ABNORMAL) POCT GLUCOSE, MANUAL ENTRY (07/10/2020) Glucose, POC 185(A) 70 - 100 mg/dL [facility] POINT OF CARE HN LAB POC COMMENT MANUAL (GLUCOSE) [facility] POINT OF spectrographic analyst ID UVN POIN T OF CARE Blood CAPILLARY BLOOD / Unknown 07/10/2020 Sarika Zamudio NP POINT OF CARE FUNMILAYO T ORDERABLES [facility] POINT OF CARE documented in this encounter Visit Diagnoses Diagnosis Type 2 diabetes mellitus with hyperglycemia, with long-term current use of insulin ([facility])- Primary Essential hypertension Unspecified essential hypertension Mixed hyperlipidemia Stage 3b chronic kidney disease ([facility]) documented in this encounter Discontinued Medications Medication Sig Discontinue Reason Start Date End Da te acyclovir (ZOVIRAX) 400 mg tablet TK 1 T PO Q 8 H FOR 5 DAYS Therapy completed 02/14/2020 07/10/2020 colchicine 0.6 mg capsule Take 0.6 mg by mouth. Therapy completed 12/26/2018 07/10/19 21 nitrofurantoin, macrocrystal-monohydrat e, (MACROBID) 100 mg capsule TK 1 C PO BID FOR ANTIBIOTIC TAKE WITH FOOD Therapy completed 11/14/2019 07/10/2020 FARXIGA 5 mg tablet Take 5 mg by mouth daily. Side effects 09/15/2019 07/10/2020 dulaglutide (TRULICITY) 0.75 mg/0.5 mL subcutaneous pen 1 pen dose Side effects 07/10/2020 documented as of this encounter Historical Medications * This list may reflect changes made after this encounter. Medication Sig Dispensed Refills Start Date End Date REPATHA SYRINGE 140 mg/mL syringe INJECT 1 SYRINGE SUBCUTANEOUSLY EVERY 2 WEEKS 06/26/2020 ONETOUCH ULTRA BLUE TEST STRIP test strips TEST BLOOD GLUCOSE THREE TIMES DAILY 06/06/2020 HUMALOG KWIKPEN INSULIN 100 unit/mL injectable pen 100-150 1 unit, 150-200 2 units, 200-250 3 units, 250-300 4 units 05/31/2020 added in this encounter Care Teams Transportation Technician Relationship Specialty Start Date End Date Bryant Crain MD [address] [place] [address] PCP - General 05/04/15 05/17/23 documented as of this encounter
--- OUTSIDE RECORDS SUMMARY | 2024-01-07 11:15 | XMS_ITS | Encounter Summary ---
Author Organization [facility] Address [address] [place] [address] Care Team Providers Care Packager Name Role Phone Bryant Crain MD Primary Care Provider [phone] Encounter Details Date Type Department Care Team (Late st Contact Info) Description 06/01/2019 Orders Only [facility] [address] [place], [place] [address] Ana Epperson NP Social History Tobacco Use Types Packs/Day Years [...] EDT Ancillary Procedure [facility] Cardiology - [facility] [address] [place], [place] [phone] 03/08/2024 10:15 EDT Ancillary Procedure [facility] Cardiology - [place] [address] 04/05/2024 10:00 EDT Ancillary Procedure [facility] [address] [place] [address] 04/05/2024 10:00 EDT Office Visit [facility] [address] [place] [address] Carlos Ha NP [address] [facility] [address] [place] [phone] documented as of this encounter Visit Diagnoses Not on filedocumented in this encounter Historical Medications * This list may reflect changes made after this encounter. Medication Sig Dispensed Refills Start Date End Date EBEN SCHWARTZ 04/19/2019 acetaminophen (TYLENOL) 650 mg CR tablet 2 tab(s) orally twice a day, only as needed gabapentin (NEURONTIN) 300 mg capsule Take 2 Capsules by mouth 2 times daily. magnesium oxide (MAG-OX) 400 mg (241.3 mg magnesium) tablet Take 1 Tablet by mouth daily. cetirizine (ZYRTEC) 10 mg tablet Take 1 Tablet by mouth daily. metFORMIN (GLUCOPHAGE-XR) 750 mg ER tablet Take 1 Tablet by mouth 2 times daily. lancets/blood glucose strips (ONE TOUCH COMBO MISC) -to test blood sugar - twice daily apixaban (ELIQUIS) 5 mg tablet Take 5 mg by mouth 2 times daily. 11/14/2022 candesartan (ATACAND) 32 mg tablet Take 32 mg by mouth daily. 11/14/2022 aspirin 81 mg EC tablet Take 81 mg by mouth daily. 12/09/2022 pimecrolimus (ELIDEL) 1 % cream 1 sylvain applied topically 2 times a day as needed in the winter only 03/06/2021 dulaglutide (TRULICITY) 0.75 mg/0.5 mL subcutaneous pen 1 pen dose 07/10/2020 insulin glargine (LANTUS SOLOSTAR U-100 INSULIN) 100 unit/mL (3 mL) injection penIndications:taking 36 Inject 38 Units into the skin daily. 07/15/2021 metFORMIN (GLUCOPHAGE) 500 mg tablet Take 500 mg by mouth daily. Take a 500 mg tablet at bedtime with a 750 mg tablet. 08/07/2020 blood-glucose meter (ONE TOUCH BASIC SYSTEM MISC) -to test blood sugar - -test 2 x daily 10/02/2020 added in this encounter Care Teams Packager Relationship Specialty Start Date End Date Bryant Crain MD [address] [place], [place] [id number] PCP - General 05/04/15 05/17/23 documented as of this encounter
--- OUTSIDE RECORDS SUMMARY | 2024-01-07 11:16 | XMS_ITS | Encounter Summary ---
Author Organization [facility] [place] [address] Care Team Providers Care Fruit Or Nut Picker Name Role Phone Franny Davison MD Primary Care Provider [phone] Reason for Visit * Reason Comments Skin Lesion Encounter Details Date Type Department Care Team (Late st Contact Info) Description 01/27/2011 11:00 AM EDT Office Visit Dermatology [address] [place] [address] [address] [place] [address] Ed Geller MD [address] [facility] [place] [address] Actinic keratosis (Primary Dx) Social History Tobacco Use Types Packs/Day Years Used Date Smoking Tobacco: Never Alcohol Use Standard Drinks/Week Comments Not Asked 0 (1 standard drink = 0.6 oz pur e alcohol) Sex and Gender Information Value Date Recorded Sex Assigned at Not on file Gender Identity Not on file Sexual Orientation Not on file documented as of this encounter Progress Notes * Ed Geller MD - 01/27/2011 11:35 AM EDT Problems: 1. Facial lesions. 2. History of Rosacea previously on Elidel. 3. History of multiple allergies. 4. History of Type II Diabetes on Metformin. Joanna follows up and has been doing well. She has noticed some new facial lesions. Physical examination reveals actinics present on her forehead, a large patch of actinic damage over the left upper cutaneous lip, but also papules of actinic keratoses are present on the nose and cheeks. Assessment & Plan: Diffuse actinic damage. a. In the past we have used LN2 but I think really she would be much better served by a course of 5-FU. b. She has never used this before and I tried to prepare her for this. She is interested in proceeding. c. Begin 5-FU Fluorouracil Cream applying twice daily for two weeks then D/C and return to clinic, 30gm dispensed to be faxed to [facility] the [facility]. d. Recommended that the patient also begin Triamcinolone 0.1% Cream apply twice daily 30-minutes after the 5-FU applications also to face. Treat the entire face diffusely with thin layer. e. Repeatedly warned about the erythematous reaction that will occur. f. RTC in two weeks for repeat check. Cc: Franny Davison MD documented in this encounter Plan of Treatment Not on file documented as of this encounter Visit Diagnoses Diagnosis Actinic keratosis- Primary documented in this encounter Care Teams Fruit Or Nut Picker Relationship Specialty Start Date End Date Franny Davison MD [address] [place] [address] PCP - General 05/13/10 04/14/18 documented as of this encounter
--- OUTSIDE RECORDS SUMMARY | 2024-01-07 11:16 | XMS_ITS | Encounter Summary ---
Author [place] [address] Care Team Providers Care Licensed Occupational Therapy Assistant Name Role Phone Bryant Crain MD Primary Care Provider Encounter Details Date Type Department Care Team (Latest Contact Info) Description 11/28/2023 9:05 PM EDT Telehealth [place] [address] Telehealth, Neurology None Bilateral leg numbness; Vertigo Social History Tobacco Use Types Packs/Day Years Used Date Smoking Tobacco: Never Smokeless Tobacco: Never Alcohol Use Standard Drinks/Week Comments Not Asked 0 (1 standard drink = 0.6 oz pur e alcohol) Sex and Gender Information Value Date Recorded Sex Assigned at Not on file Gender Identity Not on file Sexual Orientation Not on file documented as of this encounter Miscellaneous Notes * Consult Note - Chester Mae MD - 11/28/2023 9:05 PM EDT [facility] TELENEUROLOGY EMERGENT TELENEUROLOGY CONSULT NOTE Date 11/28/23 Patient: Joanna Hart : 1950 Gender: female VISIT Requesting Location: [facility] ([facility]) Requesting Physician: Fatemeh Patiño APRN Diagnosis/Reason for Consult: Bilateral lower extremity numbness and vertigo. Arrival Date: November 28, 2023 Arrival Time: 6:30 PM Consult Request Time: 9:05 PM Start Time of Video Consult: 9:16 PM PROVIDER History: The patient is a 73-year-old woman with extensive cardiac history, hypertension, insulin-dependent diabetes and cerebrovascular disease. She informs me that she had a stroke back in 2016 which left her with some residual left-sided weakness. This evening she was in her usual state of health until approximately 6 PM when she developed the sudden onset of numbness involving her distal lower extremities from the knees down. This resolved onthe left but she still has some numbness on the right side distal to the knee. She also developed spinning vertigo and disequilibrium. That is significantly better now but not completely resolved. The patient denies headache. She has had no focal weakness. She denies any speech difficulties. There has been no alteration in her consciousness. She did undergo a head CT scan and a CT angiogram of the head and neck which will be described below. Past Medical History: Cerebrovascular accident as described above, insulin- dependent diabetes, hypertension, hypertrophic cardiomyopathy, depression, GERD, status post pacemaker placement Current Medications: Eliquis 5 mg twice daily, cetirizine, vitamin D supplement, vitamin B12, Repatha, gabapentin 600 mg twice daily, insulin on a regular basis 18 units twice daily and sliding scale, magnesium hydroxide, metformin 500 mg twice daily, metoprolol, Ozempic, pantoprazole, spironolactone Allergies: MRI contrast dye, Plavix, atenolol, Zetia, hydrochloroquine, cephalexin, Cipro, Percocet, statin medications (intolerance). Neurologic Social History: Are you a current smoker or have you ever smoked: No Do you consume alcohol: No Vitals: Pulse: 70 Blood pressure: 167/82 NIH STROKE SCALE 1A. Level of Consciousness 0 1B. LOC Questions 1 1C. LOC Commands 0 2. Best Gaze 0 3. Visual 0 4. Facial Pals 0 5. Motor Arm Left Arm 0 Right Arm 0 6. Motor Leg Left Leg 0 Right Leg 0 7. Limb Ataxia 0 8. Sensory 1 9. Best Language 0 10. Dysarthria 0 11. Extinction and Inattention (formerly neglect) 0 TOTAL 2 Additional Neurologic Examination Findings: I did have the patient ambulate short distance in the emergency department and she was slow and tentative when she walked. She seemed reasonably steady, however. She reports that she normally walks with a cane and she did not have a cane at that time but she does believe that that is her baseline walking. Radiology Imaging Imaging/Results: CT angiogram of the head and neck revealed no significant large vessel stenoses orocclusions. The head CT scan itself revealed no acute abnormalities. I did not see evidence of a large vessel territory chronic infarct but there was a significant amount of microvascular ischemic disease. Labs: Glucose is pending, PT/INR 11.3/1.1, platelet count 240,000 CLINICAL IMPRESSION/DIAGNOSIS: The patient is a 73-year-old woman with a history of hypertension, insulin- dependent diabetes, dyslipidemia on Repatha (cannot tolerate statins) who also has history of a prior cerebrovascular accident likely small vessel subcortical which affected her left side with hypertrophic cardiomyopathy on Eliquis and a pacemaker implanted 1 year ago (also with an AICD) who was in her usual state of health until earlier this evening when she developed the sudden onset of bilateral lower extremity numbness. She also developed vertigo and disequilibrium at that time. Much of her symptoms have resolved although she still describes some persistent numbness in 1 leg distal to the knee and some persistent disequilibrium. Bilateral symptoms are somewhat unusual for stroke but possible if posterior circulation involvement is present. Posterior circulation involvement may also explain vertiginous symptoms. She has a fair amount of risk factors for stroke as described above. Fortunately, her CT angiogram of the head and neck failed to reveal any significant large vessel stenoses or occlusions. She is already anticoagulated with Eliquis 5 mg p.o. twice daily dosing. RECOMMENDATIONS/PLAN: 1. Aspirin 325 mg now and then starting tomorrow 81 mg/day of Ecotrin. 2. Continue the Eliquis at 5 mg p.o. twice daily 3. MRI brain without contrast in the morning to determine if diffusion weighted images have identified an acute infarct. 4. If the diffusion weighted images confirm an acute infarct then I would continue low-dose [id number] mg/day in the form of Ecotrin. If not, the Ecotrin can be discontinued. 5. Permissive hypertension so long as systolic blood pressure is not greater than 220 and diastolicblood pressure is not greater than 110. After 24 hours aggressive blood pressure control should be instituted regardless of whether or not she has experienced an acute infarct. 6. Continue Repatha 7. Control blood sugars in the normal range. 8. She has no speech or swallowing symptoms so a cardiac prudent diet should suffice. 9. Consult physical therapy in the morning. 10. If the MRI is unremarkable for any acute infarct, she should be able to be discharged to home tomorrow with close follow-up with her outpatient neurologist. OBSERVATION/ADMISSION/TRANSFER: Admit for observation and the above-mentioned testing. These recommendations were discussed with Fatemeh Patiño APRN in the emergency department at [facility] who voiced understanding and agreement. documented in this encounter Plan of Treatment Not on file documented as of this encounter Visit Diagnoses Diagnosis Bilateral leg numbness Disturbance of skin sensation Vertigo Dizziness and giddiness documented in this encounter Care Teams Licensed Occupational Therapy Assistant Relationship Specialty Start Date End Date Bryant Crain MD [address] [place] [address] PCP - General Internal Medicine 04/15/18 documented as of this encounter
--- OUTSIDE RECORDS SUMMARY | 2024-01-07 11:16 | XMS_ITS | Encounter Summary ---
Author Organization [facility] [place] [address] Care Team Providers Care Marking Clerk Name Role Phone Franny Davison MD Primary Care Provider [phone] Reason for Visit * Reason Comments Follow-up Encounter Details Date Type Department Care Team (Late st Contact Info) Description 04/19/2015 1:00 PM EDT Office Visit Dermatology at [address] [address] Ed Geller MD [address] [facility] DERMATOLOGY [place], [place] [id number] [place] (actinic keratosis) Social History Tobacco Use Types Packs/Day Years [...] Progress Notes * Ed Geller MD - 04/19/2015 1:22 PM EDT Problem: Followup status post eight weeks of fluorouracil cream applications two days a week. Joanna follows up and is having an excessively vigorous reaction on the upper cutaneous lip and in the nasal alar creases bilaterally. It is quite painful for her. She is also getting some impetigo-like changes with crust/scab on the left upper cutaneous lip. Physical examination reveals good highlighting with moderate reaction over the forehead of actinically damaged skin where she has been applying the 5-FU. Particularly, however, on the nasal alar shiloh, left upper lip, and just below the left angle of the mouth, she has had an excessively exuberant reaction with serous drainage and crust/scab. Given her degree of pain, it may indeed be slightly infected staphylococcus or streptococcus. Assessment and Plan: Excessive reaction to 5-FU. a. Discontinue 5-FU for a week, but continue triamcinolone cream b.i.d. b. Apply mupirocin ointment to face on a b.i.d. basis for one week. c. I recommended that she then, after a week, restart the 5-FU, but only use it once a day two days a week, e.g., once daily on either Mondays and , or once daily on Tuesdays and Fridays. The patient has about one-third of a tube left. Finish the tube; then return to clinic for repeat check. COPY: Franny Davison M.D. documented in this encounter Plan of Treatment Not on file documented as of this encounter Visit Diagnoses Diagnosis AK (actinic keratosis) Actinic keratosis documented in this encounter Care Teams Marking Clerk Relationship Specialty Start Date End Date Franny Davison MD [address] [place] [address] PCP - General 05/13/10 04/14/18 documented as of this encounter
--- OUTSIDE RECORDS SUMMARY | 2024-01-07 11:16 | XMS_ITS | Encounter Summary ---
[place] [address] Care Team Providers Care Research Specialist Name Role Phone Franny Davison MD Primary Care Provider [phone] Encounter Details Date Type Department Care Team (Late st Contact Info) Description 03/23/2016 [place] [phone] Queta Arcos LPN Social History Tobacco Use Types Packs/Day Years [...] encounter Miscellaneous Notes * Telephone Encounter - Queta Arcos LPN - 03/26/2016 9:36 AM EDT R/c to patient at which time message from Dr Galvez was read to her. Patient agrees with plan of care. * Telephone Encounter - Queta Arcos LPN - 03/25/2016 9:49 AM EDT Images from the original note were not included. Joanna Hart?? Female, 65 y.o., 1950 Weight: 78.2 kg (172 lb 6.4 oz) Home: PCP: Franny Davison MD myD-H: Pending Next Appt: None ?? Message Received: Yesterday ? Petrona Galvez MD Isham, Gail, LPN ? Caller: Unspecified (2 days ago, ??1:53 PM) ? Oscar Birch, I would continue byetta 5 mg SC bid. If you could let her know would be great Thanks petrona ? Previous Messages Called patient. No answer. Message left on home v/m for patient to r/c to nurse at which time abovemessage will be read to her. * Telephone Encounter - Queta Arcos LPN - 03/23/2016 1:53 PM EDT R/c to patient Rx for metformin glipizide and byetta [facility]. Patient states she is taking Byetta 5 mg FBG's are 103-176 were 70-90's when on Victoza. Forward to Dr Galvez to verify if Byetta dose is to be increased to 10 mg documented in this encounter Plan of Treatment Not on file documented as of this encounter Visit Diagnoses Not on filedocumented in this encounter Care Teams Research Specialist Relationship Specialty Start Date End Date Franny Davison MD [address] [place] [address] PCP - General 05/13/10 04/14/18 documented as of this encounter
--- OUTSIDE RECORDS SUMMARY | 2024-01-07 11:16 | XMS_ITS | Encounter Summary ---
Author Organization [facility] [place] [address] Care Team Providers Care Rn Surgery Name Role Phone Bryant Crain MD Primary Care Provider [phone] Reason for Visit * Consultation (Routine) - Specialty Diagnoses / Procedures Referred By Charo daniel Referred To Contact Dermatology Diagnoses Disorder of the skin and subcutaneous tissue, unspecified Skin Lesion of face Procedures Consult Franny Davison MD [address] [place] [address] Ed Geller MD [address] [place] [address] [place] [address] Referral ID Status Reason Start Date Expiration Date V isits Requested Visits Authorized [id number] 01/19/2018 01/19/2019 1 1 Encounter Details Date Type Department Care Team (Late st Contact Info) Description 04/15/2018 3:45 PM EDT Office Visit Dermatology at [address] [phone] Ed Geller MD [address] [place] [address] [place] [address] [place] (actinic keratosis) Social History Tobacco Use [...] Progress Notes * Ed Geller MD - 04/15/2018 3:45 PM EDT Problem: 1. Follow-up actinic check 2. Status post 8-week course of fluorouracil cream 2 days a week completed March 2015 with excessive reaction 3. Status post 2-week course of 5-FU completed March 2011 4. History of rosacea she is on Elidel 5. History of type 2 diabetes on metformin Joanna follows up after last being seen in March 2015. She had a stroke assessed on her last. Sherecovered from that fairly well and is exercising every day at the [employer]. She is no some new spots on her face. After our last 2014 course of 5-FU she was clear until just recently. Physical examination reveals a pleasant 67-year-old man who has very fair [place] skin type II Peterson pigmentation and small actinic again with developing on the forehead and the lateral cheeks. She is no evidence of any malignant lesions on careful examination of the face the upper chest the arms forearms hands or back. Assessment plan: Actinic keratosis facial 1. LN 2 x 2 applied to each of 6 spots 2. Recommend see again in a year for repeat check. 3. No need for repeat of 5-FU course at this time 4. No evidence of any malignant lesions today. Intertrigo, submammary breasts 1. Patient requests refill for Lotrisone cream and I am willing to give it to her 45 g with 1 refill as long she uses for only 2-3 days not longer. She uses off and on again off again 1 to plus almost for a year. Typically keeps area dry. Cc:'s Bryant Crain MD documented in this encounter Miscellaneous Notes * Addendum Note - Abelino Spangler LPN - 04/15/2018 3:45 PM EDTAddended by: ABELINO SPANGLER on: 04/15/2018 04:45 PM Modules accepted: Orders documented in this encounter Plan of Treatment Not on file documented as of this encounter Visit Diagnoses Diagnosis AK (actinic keratosis) Actinic keratosis documented in this encounter Care Teams Rn Surgery Relationship Specialty Start Date End Date Bryant Crain MD [address] [place] [address] PCP - General Internal Medicine 04/15/18 documented as of this encounter
--- OUTSIDE RECORDS SUMMARY | 2024-01-07 11:16 | XMS_ITS | Encounter Summary ---
Author Organization Formerly [facility], [facility] Address [facility] [place] [address] Care Team Providers Care Recreation Facility Attendant Name Role Phone Franny Davison MD Primary Care Provider [phone] Reason for Visit * Reason Comments Diabetes Encounter Details Date Type Department Care Team (Late st Contact Info) Description 07/09/2016 1:30 PM EST Office [place] [address] Luna Galvez MD [facility] [place] [address] Type 2 diabetes mellitus without complication, without long-term current use of insulin Social History Tobacco Use Types Packs/Day Years [...] Sign Reading Time Taken Comments Blood Pressure 157/84 07/09/2016 1:16 PM EST Pulse 94 07/09/2016 1:16 PM EST Temperature - - Respiratory Rate - - Oxygen Saturation - - Inhaled Oxygen Concentration - - Weight 75.6 kg (166 lb 11.2 oz) 07/09/2016 1:16 PM EST Height 162.6 cm (5' 4) 07/09/2016 1:16 PM EST Body Mass Index 28.61 07/09/2016 1:16 PM EST documented in this encounter Patient Instructions * Patient Instructions* Luna Galvez MD - 07/09/2016 1:30 PM EST 1. Continue Humalog custom sliding scale for BG>150 2. Add Glipizide 10 mg XR daily 3. Continue metformin to 750 mg XR BID 4. Stop byetta and switch to Trulicity 1.5 mg on e injection weekly 5. Will check A1C today 6. RTC in 6 months documented in this encounter Progress Notes * Luna Galvez MD - 07/09/2016 1:30 PM EST Diabetes Outpatient Consult Date of Consultation: 07/09/2016 Consult Requested by: Dr. Davison Reason for Consultation: Joanna Hart is a 66 y.o. years old female with PMH significant for DMT2 . We are being consulted to assist with diabetes management and to provide a review of prison diabetes care. Diabetes History: Joanna Hart has had diabetes Type 2, diagnosed 4 years, on routine testing during physical BG- 800. At her last visit we had added glipizide, byetta and metformin, switched novolog to humalog and given titration instructions for her levemir. Pt had been compliant with all the above but unfortunately had stopped levemir completely instead of titrating it down. A1C progression 08/2015 A1C 8.2 12/2015 A1C 9.5 Cr- 1.1 EGFR- 45 Average dose of novolog- 10 units Has had 6lbs weight loss since January on byetta. Tolerated this well, as well as metformin. Current outpatient diabetes regimen: Medications: 1. Levemir 50 units qd-> stopped 2. Humalog custom sliding scale for BG>150 ISF 1:20 4. Glipizide 10 mg XR daily 5. metformin to 750 mg XR BID 6. Byetta 5 mcg BID since March Monitoring is done 3-4 times a day Fasting - 144-216 Pre lunch- 138-199 Before dinner- 108- 219 Bedtime 101-196 Most recent HA1c was done on07/09/2016 and is 7.4 % Typical diet is: 3 meals and 1-2 snacks a day Typical exercise regimen is limited Trouble with hypoglycemia none Diabetes Complications Status: Eyes: None had eye exam last week Kidneys: CKD Feet: None Sensory: None Autonomic: None Cardiac: None ROS: (+) for as per HPI (-) for Constitutional: No recent weight change Endocrine: No thyroid problems Eyes: No recent vision change ENT: No dysphagia, dental issues Cardiovascular: No chest pain Respiratory: No wheezing , shortness of breath GI: No nausea, vomiting, diarrhea, constipation : No frequent urinary tract infections Neurological: No weakness or numbness PMH Patient Active Problem List Diagnosis Date Noted ??? Diabetes mellitus, type 2 01/26/2011 ??? Rosacea 01/26/2011 Allergy: Allergies Allergen Reactions ??? Contrast [Iodine And Iodide Containing Products] ??? Darvocet A500 [Propoxyphene N-Acetaminophen] ??? Percocet [Oxycodone-Acetaminophen] Social history: Social History Substance Use Topics ??? Smoking status: Never Smoker ??? Smokeless tobacco: Never Used ??? Alcohol use None Family history: Sister and brother- type 2 DM Negative autoimmune conditions Vitals Vitals: 07/09/16 1316 BP: 157/84 Pulse: 94 NAD, pleasant no goiter, no acanthosis nigricans, no supraclavicular fat pads S1S2+ Lungs CTAB Abd soft no violaceous straie Fine touch and vibration sense B/L feet intact Labs: 12/2015 A1C 9.5 Cr- 1.1 EGFR- 45 Results for JOANNA HART ( ) as of 07/10/2016 11:36 Ref. Range 05/08/2010 18:17 07/09/2016 14:32 Hemoglobin A1C Latest Ref Range: 4.3 - 5.6 % 7.4 (H) Est Avg Gluc Latest Units: mg/dL 166 Assessment: Patient is a 66 y.o. years old female with PMH significant for DM (Last A1C of 7.4) who presents for diabetes management. Diabetes close to adequately controlled and complicated by insulin resistance. Joanna has DMT2 complicated by CKD EGRF- 45. She has done very well with byetta, and now her A1C is7.4 % which is close to goal of 7% !!! For ease of use, she may stop byetta and switch to Trulicity1.5 mg sc injection weekly. Ok to have stopped the levemir, she may continue to use humalog SS for correction until Trulicity kicks in, then will cut back. Will continue glipizide and metformin Plan: 1. Continue Humalog custom sliding scale for BG>150 2. Continue Glipizide 10 mg XR daily 3. Continue metformin to 750 mg XR BID 4. Stop byetta and switch to Trulicity 1.5 mg sc injection weekly 5. RTC in 6 months Insulin Discharge Instructions You have a follow-up appointment in Endocrine Clinic Section (5C) with us in 3 months. Please take your meter, glucose and insulin log with you to the appointment. Instructions for Mealtime Novolog (or Humalog) Insulin This is the rapid-acting insulin, used at mealtime to prevent a high BG after you eat. Check your BG before each meal. 1. If your BG is 100 or higher, inject Novolog right before eating. 2. If your BG is 80 - 100, inject Novolog right after eating. 3. If your BG is lower than 80, or you have symptoms of a low BG, treat the low BG first, then eat your meal and take the Novolog after eating. 4. Inject novolog per sliding scale below before meals and at bedtime ADD the following dose if your blood glucose is over 150 at meal time based on an insulin sensitivity factor of 20 meaning 1 unit of insulin is estimated to decrease your BG by 20 points. My Correction Dose Scale (One unit of fast acting insulin lowers your blood sugar 20 points) *Your target blood sugar before meals is: 130 When my blood sugar before meals is: I will correct by giving: Less than 70 EAT 15 grams of carbs 71 to 84 take -2 Less units 85 to 99 take -1 Less units Target: 130 to 149 take No Extra Insulin 150 to 169 take +1 units 170 to 189 take +2 units 190 to 209 take +3 units 210 to 229 take +4 units 230 to 249 take +5 units 250 to 269 take +6 units 270 to 289 take +7 units 290 to 309 take +8 units 310 to 329 take +9 units 330 to 349 take +10 units 350 to 369 take +11 units 6. 7. 8. 9. If you should forget to take your Novolog. If it is less than an hour since you ate your meal, take the calculated dose If more than an hour has passed since you ate, recheck blood glucose and dose accordingly. Try to get some extra exercise and drink a lot of water to help with the high blood sugar. Treatment of Low Blood Sugar (Hypoglycemia) If your BG is lower than 80, you are likely to feel shaky, sweaty and lightheaded. This is a signalthat your body needs more sugar. Quickly eat or drink a small serving of something sweet, such as: 4 ounces fruit juice or regular (not diet) soda 6 lifesavers small box of raisins 4 glucose tablets (~15 gm of glucose) If your BG is very low <50, you can double the amount above or take 30 gm of glucose gel/tablets. Sit and rest and you should feel better within a few minutes. Once you are feeling better, try to determine why your BG was so low. Common causes of hypoglycemia include skipping a meal, lots of exercise, too much insulin or any combination of these things. Understanding the cause my help you to avoid another low BG in the future. Call your doctor for blood sugars less than 80 or greater than 300 twice in one day to have your insulin doses adjusted. [facility] [place] Endocrine clinic office [facility] diabetes care: Monitoring - continue BG tid ac & hs Diet - low fat/low carb diet Exercise - weight-bearing exercise 30 min/day, as tolerated Thank you for the consult. D/w Dr Tonie Galvez MD Endocrine Fellow Pager- [phone] * Vidhya Schilling MD - 07/09/2016 1:30 PM EST I have seen the patient and reviewed Dr. Galvez's above history and I agree with the details as written. The assessment and plan were formulated in discussion with me and I agree with them as documented. Vidhya Schilling MD, PhD, FACP, FACE documented in this encounter Plan of Treatment Not on file documented as of this encounter Procedures Procedure Name Priority Date/Time Associated Diagnosis Comments HEMOGLOBIN A1C STAT 07/09/2016 2:32 PM EST Type 2 diabetes mellitus without complication, without long-term current use of insulin documented in this encounter Results * (ABNORMAL) Hemoglobin A1c (07/09/2016 2:32 PM EST) [facility] Hemoglobin A1C 7.4(H) 4.3 - 5.6 % [facility] Comment: Reference Range: 4.3 - 5.6% 5.7 - 6.4% - Increased Risk of Developing Diabetes Mellitus >= 6.5% - Consistent with diagnosis of Diabetes Mellitus In the absence of hyperglycemia (i.e. plasma glucose > 200 mg/dL) or classic symptoms of hyperglycemia a repeat measurement of HbA1c should be performed on a separate sample to confirm the diagnosis. Diagnosis and Classification of Diabetes Mellitus, Diabetes Care 2013; 36: Suppl. 1, S67-74 Est Avg Gluc 166 mg/dL [facility] Comment: eAG equivalents for HbA1c percentages: HbA1c(%) ?eAG(mg/dL) 6.0 ?126 6.5 ?140 7.0 ?154 7.5 ?169 8.0 ?183 8.5 ?197 9.0 ?212 9.5 ?226 10.0 ? 240 Limitations: The eAG calculation has not been validated on women, individuals below 18 years old and above 70 years old, and individuals with hemoglobinopathies. Additional resources are available on the ADA website: http://Morphy.com/DHMCadacalc Tyrone FINK, Rodger J, Vidal R, et al. ??Translating the A1C assay into estimated average glucose values. ??Diabetes Care 2008:31(8):6370-3125. Blood specimen (specimen) 07/09/2016 2:32 PM EST 07/09/2016 2:39 PM EST Narrative Resulting Agency Comment Spec In Lab Vidhya Schilling MD CHEMISTRY ORDERAB LES Performing Organization Address City/State/[facility] Co de Phone Number [facility] [place] [address] documented in this encounter Visit Diagnoses Diagnosis Type 2 diabetes mellitus without complication, without long-term current use of insulin documented in this encounter Care Teams Recreation Facility Attendant Relationship Specialty Start Date End Date Franny Davison MD [address] [place] [id number] PCP - General 05/13/10 04/14/18 documented as of this encounter
--- OUTSIDE RECORDS SUMMARY | 2024-01-07 11:16 | XMS_ITS | Encounter Summary ---
Author Organization Formerly [facility] [place] [address] Care Team Providers Care Machine Maintenance Repairer Name Role Phone Bryant Crain MD Primary Care Provider Encounter Details Date Type Department Care Team (Late st Contact Info) Description 09/14/2022 Telephone Cardiology at [address] [address] Eric Rutledge MD [facility] [place] [address] Social History Tobacco Use Types Packs/Day Years [...] encounter Miscellaneous Notes * Telephone Encounter - Eric Rutledge MD - 09/14/2022 5:38 PM EDT Images from the original note were not included. 09/14/2022 Joanna Hart Initial Contact Date: 09/14/2022 Initial contact time: 5:38 PM Referring Provider: Dr. Ferrer Patient Location: [facility] Past Medical History: HTN DM Presenting Symptoms per OSH: 72F with history as above presented to [facility] with RLE heaviness. - Unclear history but presented today with worsening RLE heaviness. Initial stroke work up includeda CTH / MRI that was negative. - Denied any chest pain or shortness of breath but today on telemetry, was noted to have a potential run of torsades. Did not receive shocks or chest compressions. Pertinent Diagnostic Findings: 160/84, HR 65, 97% on RA HsTrop 148 --> 136 Plan: - On review of the telemetry strips, this is likely an over-read due to artifact. There are normal pleth tracings throughout and QRS complexes that are discernable through the artifact. - I am unclear why her hsTrop is elevated to 140s and now downtrending but she has no discernable cardiac symptoms at this time. I recommended to trend her enzymes and EKGs (which appear to be consistent with Anastasia) and obtain an echocardiogram in the AM. Above recommendations were based on my discussion with Dr. Ferrer; I have not personally interviewed or examined this patient. Advised to call the transfer center back with any changes in the patient condition. Eric Rutledge PGY6 Cardiology [id number] documented in this encounter Plan of Treatment Not on file documented as of this encounter Visit Diagnoses Not on filedocumented in this encounter Care Teams Machine Maintenance Repairer Relationship Specialty Start Date End Date Bryant Crain MD [address] [place] [address] PCP - General Internal Medicine 04/15/18 documented as of this encounter
--- OUTSIDE RECORDS SUMMARY | 2024-01-07 11:16 | XMS_ITS | Encounter Summary ---
Author Organization [facility] Address [facility] [place] [address] Care Team Providers Care Group Care Worker Name Role Phone Bryant Crain MD Primary Care Provider Encounter Details Date Type Department Care Team (Late st Contact Info) Description 11/02/2022 Ancillary Procedure [place] [address] Milagros Joseph MD [facility] [place] [address] Social History Tobacco Use Types Packs/Day Years Used Date Smoking Tobacco: Never Smokeless Tobacco: Never Alcohol Use Standard Drinks/Week Comments Not Asked 0 (1 standard drink = 0.6 oz pur e alcohol) Sex and Gender Information Value Date Recorded Sex Assigned at Not on file Gender Identity Not on file Sexual Orientation Not on file documented as of this encounter Plan of Treatment Not on file documented as of this encounter Procedures Procedure Name Priority Date/Time Associated Diagnosis Comments FILM LIBRARY STORAGE ONLY CT ABDOMEN AND PELVIS Routine 11/02/2022 12:00 AM EDT documented in this encounter Results * Film Library- Storage Only CT Abdomen & Pelvis (11/02/2022 12:00 AM EDT) Narrative [facility] - 11/11/2022 7:36 AM EDT This exam is auto-finalizing. It's purpose is for storage only. Milagros Joseph MD IMG FILM LIBRARY ORD ERABLES [place], [place] documented in this encounter Visit Diagnoses Not on filedocumented in this encounter Care Teams Group Care Worker Relationship Specialty Start Date End Date Bryant Crain MD [address] [place] [address] PCP - General Internal Medicine 04/15/18 documented as of this encounter
--- OUTSIDE RECORDS SUMMARY | 2024-01-07 11:16 | XMS_ITS | Encounter Summary ---
[place] [address] Care Team Providers Care Consumer Loan Manager Name Role Phone Unavailable Primary Care Provider Unavailabl e Encounter Details Date Type Department Care Team (Late st Contact Info) Description 05/08/2010 4:30 PM EST Office Visit Dermatology [address] [facility] [address] [place] [address] Ed Geller MD [address] [facility] [place] [address] Social History Tobacco Use Types Packs/Day Years [...]
--- OUTSIDE RECORDS SUMMARY | 2024-01-07 11:16 | XMS_ITS | Encounter Summary ---
[place] [address] Care Team Providers Care Personal Computer Specialist Name Role Phone Bryant Crain MD Primary Care Provider [phone] Reason for Visit * Reason Comments Follow-up Skin Check Encounter Details Date Type Department Care Team (Late st Contact Info) Description 04/17/2019 10:30 AM EDT Office Visit Dermatology at [address] [address] Ed Geller MD [address] [facility] [place] [address] [place] (actinic keratosis) Social History Tobacco Use [...] Progress Notes * Ed Geller MD - 04/17/2019 10:30 AM EDT Problem: 1. Follow-up actinic check 2. Status post 8-week course of fluorouracil cream 2 days a week completed March 2015 with excessive reaction 3. Status post 2-week course of 5-FU completed March 2011 4. History of rosacea she is on Elidel being refilled by Dr. Crain 5. History of type 2 diabetes on metformin Joanna follows up after last being seen in March 2018. She is now been almost 2 years since April 2017 that she had her stroke. She is come back along the way. She exercises every day at the [employer] swimming pool. She is no some new actinic's. She does not definitely does not want to ever use the 5-FU again on her face. She had an excessive reaction and not March 2015. Physical examination reveals a pleasant 68-year-old woman who has a benign examination of the chestthe back the hands the arms of forearms. She has actinic's developing again on her forehead and temples bilaterally left worse than right. She has a erythematous 1 cm patch in the left base of neck co ncerning for possible Iglesias's disease. She has no evidence of any malignant lesions today. Assessment plan: Actinic keratosis facial 1. LN 2 x 2 applied to each of 10 sites 2. Recommend that she return again in 1 year for a repeat check 3. No evidence of any cutaneous malignancy today. 4. Patient defers future use of 5-FU CC: Bryant Crain MD documented in this encounter Plan of Treatment Not on file documented as of this encounter Visit Diagnoses Diagnosis AK (actinic keratosis) Actinic keratosis documented in this encounter Care Teams Personal Computer Specialist Relationship Specialty Start Date End Date Bryant Crain MD [address] [place] [address] PCP - General Internal Medicine 04/15/18 documented as of this encounter
--- OUTSIDE RECORDS SUMMARY | 2024-01-07 11:16 | XMS_ITS | Encounter Summary ---
Author Organization [facility] [place] [address] Care Team Providers Care Technology Applications Engineer Name Role Phone Bryant Crain MD Primary Care Provider [phone] Encounter Details Date Type Department Care Team (Late st Contact Info) Description 05/08/2010 Orders Only Dermatology at [place] [address] [place] [phone] Ed Geller MD [address] [facility] DERMATOLOGY [place], [place] [id number] Social History Tobacco Use Types Packs/Day Years Used Date Smoking Tobacco: Never Assessed Sex and Gender Information Value Date Recorded Sex Assigned at Not on file Gender Identity Not on file Sexual Orientation Not on file documented as of this encounter Plan of Treatment Not on file documented as of this encounter Procedures Procedure Name Priority Date/Time Associated Diagnosis Comments SURGICAL PATHOLOGY REPORT Routine 05/08/2010 6:17 PM EST documented in this encounter Results * Surgical Pathology Report (05/08/2010 6:17 PM EST) Surgical Pathology Report [id number] ? Location: [facility] The signing pathologist has (i) examined the relevant preparation(s) for the specimen(s) and (ii) rendered or confirmed the diagnosis(es). . ?Pathology Surgical Pathology Final Report Clinical Information Specimen Submitted: A - Distal dorsal (R) foot, near base of 3rd toe, punch Clinical History: New atypical mole Clinical Diagnosis: Atypical nevus Report to: _ Ed Geller MD, III [facility] [place], [place] ??[address] Gross Description Labeled/Fixative: ? Distal dorsal R foot, formalin. Qty/Size/Weight: ?Single punch, 0.5 cm, excised to a depth of 0.15 cm. ?Bro skin with an eccentric, 0.35 x 0.25-cm, dark ?brown macule with an eccentric, 0.2 x 0.15-cm, brown ?macule. Sections/Processi ng: ??Bisected. ??(T1) ??aje/CJL Microscopic Description Slides reviewed, microscopic description not recorded. 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 , abutting the peripheral specimen edge (see Comment). CR-0 05/13/10 SY 05/13/10 Verified by: ? Stefan HAY, PhD, [facility] ?Dermatopatholog ist ?(Electronic Signature) The attending pathologist whose signature appears on this report has reviewed all diagnostic slides and has edited the gross and/or microscopic portion of the report in rendering the final pathologic diagnosis. Comment Multiple deeper levels have been examined. ?The lesion is predominantly intraepidermal lentiginous and nested ?? melanocytic proliferation with rare dermal nests. The findings are consistent with a severely atypical nevus. It abutts the ? peripheral specimen edge, c omplete excision is recommended. Drs. Chandler, Henrique and Erick have reviewed this case and concur with this diagnosis. ELOISA DOMINGO 05/08/2010 6:17 PM EST Ed Geller MD PATHOLOGY/CYTOLOGY [place] ELOISA MCG[facility]ERNREPLACED BY [facility] documented in this encounter Visit Diagnoses Not on filedocumented in this encounter Care Teams Technology Applications Engineer Relationship Specialty Start Date End Date Bryant Crain MD [address] [place] [address] PCP - General Internal Medicine 04/15/18 documented as of this encounter
--- OUTSIDE RECORDS SUMMARY | 2024-01-07 11:16 | XMS_ITS | Encounter Summary ---
Author Organization [facility] Address [address] [place] [address] Care Team Providers Care Pneumatic Jack Operator Name Role Phone Bryant Crain MD Primary Care Provider [phone] Encounter Details Date Type Department Care Team (Late st Contact Info) Description 03/15/2018 Historical Results Only [facility] Lab - Main [place] [address] [place] [id number] Janki Jeffries MD [address] [place] [address] [place] [address] Social History Tobacco Use Types [...] [facility] - [address] [place], [place] [id number] 03/08/2024 10:15 EDT Ancillary Procedure [facility] Cardiology - [place], [place] [id number] 04/05/2024 10:00 EDT Ancillary Procedure [facility] [address] [place] [address] 04/05/2024 10:00 EDT Office Visit [facility] - [facility] Cardiology Clinic [address] [place], [place] [id number] Carlos Ha NP [address] [facility] [address] [place] [address] documented as of this encounter Procedures Procedure Name Priority Date/Time Associated Diagnosis Comments COMPLETE BLOOD COUNT WITH DIFFERENTIAL (AUTO) Routine 03/15/2018 10:00 EDT documented in this encounter Results * (ABNORMAL) COMPLETE BLOOD COUNT WITH DIFFERENTIAL (AUTO) (03/15/2018 10:00 EDT) ABSOLUTE NEUTROPHIL COUN - [facility] 6.63 1.7 - 7.0 10e3/ul 03/15/2018 15:27 [facility] BASO # - [facility] 0.06 0.0 - 0.3 10e3/uL 03/15/2018 15:27 [facility] BASO % - [facility] 1 0 - 2 % 03/15/2018 15:27 [facility] EOS # - [facility] 1.54(H) 0.05 - 0.5 10e3/uL 03/15/2018 15:27 [facility] EOS % - [facility] 12(H) 0 - 5 % 03/15/2018 15:27 [facility] GRAN % - [facility] 51 40 - 80 % 03/15/2018 15:27 [facility] HEMATOCRIT - [facility] 40.6 34.0 - 47.0 % 03/15/2018 15:27 [facility] HEMOGLOBIN - [facility] 13.4 11.2 - 15.7 g/dl 03/15/2018 15:27 [facility] IG# - [facility] 0.04 0 - 0.07 10e3/uL 03/15/2018 15:27 [facility] IG% - [facility] 0.3 0 - 0.9 % 03/15/2018 15:27 [facility] LYMPH # - [facility] 3.94(H) 0.9 - 2.9 10e3/uL 03/15/2018 15:27 [facility] LYMPH% - [facility] 30 20 - 40 % 03/15/2018 15:27 [facility] MEAN CORPUSCULAR HGB - [facility] 29.6 26 - 34 pg 03/15/2018 15:27 [facility] MEAN CORPUSCULAR HGB CONC - [facility] 33.0 31 - 36 g/dL 03/15/2018 15:27 [facility] MEAN CELL VOLUME - [facility] 89.6 77 - 100 fl 03/15/2018 15:27 [facility] MONO # - [facility] 0.88 0.3 - 0.9 10e3/uL 03/15/2018 15:27 [facility] MONO% - [facility] 7 0 - 12 % 03/15/2018 15:27 [facility] PLATELET COUNT 352 150 - 400 10e3/ul 03/15/2018 15:27 [facility] RED BLOOD COUNT - [facility] 4.53 3.8 - 5.2 10e6/ul 03/15/2018 15:27 [facility] RED CELL DISTRI WIDTH - [facility] 13.7 11.8 - 15.6 % 03/15/2018 15:27 [facility] WHITE BLOOD COUNT - [facility] 13.1(H) 3.5 - 10.5 10e3/ul 03/15/2018 15:27 [facility] 03/15/2018 10:0 0 EDT 03/15/2018 15:21 EDT Janki Jeffries MD HEMATOLOGY & PF4 ORD ERABLES [facility] documented in this encounter Visit Diagnoses Not on filedocumented in this encounter Care Teams Pneumatic Jack Operator Relationship Specialty Start Date End Date Bryant Crain MD [address] [place] [address] PCP - General 05/04/15 05/17/23 documented as of this encounter
--- OUTSIDE RECORDS SUMMARY | 2024-01-07 11:16 | XMS_ITS | Encounter Summary ---
Author Organization [facility] Address [address] [place] [address] Care Team Providers Care Creative Producer Name Role Phone Bryant Crain MD Primary Care Provider [phone] Encounter Details Date Type Department Care Team (Late st Contact Info) Description 10/18/2017 Historical Results Only [facility] Lab - Main [place] [address] [place] [id number] Janki Jeffries MD [address] [place] [address] [place] [address] Social History Tobacco Use Types [...] 03/08/2024 9:30 EDT Ancillary Procedure [facility] Cardiology - [address] [place], [place] [id number] 03/08/2024 10:15 EDT Ancillary Procedure [facility] Cardiology - [place], [place] [id number] 04/05/2024 10:00 EDT Ancillary Procedure [facility] Cardiology Clinic [address] [place] [address] 04/05/2024 10:00 EDT Office Visit [facility] Cardiology Clinic [address] [place], [place] [address] Carlos Ha NP 130 [facility] [address] [place] [phone] documented as of this encounter Procedures Procedure Name Priority Date/Time Associated Diagnosis Comments MICROALBUMIN, URINE Routine 10/18/2017 1 1:30 EDT URINE [id number]-ET-[id number] NE RATIO (ACR) Routine 10/18/2017 11:30 EDT documented in this encounter Results * (ABNORMAL) MICROALBUMIN, URINE (10/18/2017 11:30 EDT) Albumin, Urine 9.80(H) <1.7 mg/dL 10/18/2017 19:37 EDT [facility] Lab Urine Albumin to Creatinine Ratio 147.5 ug/mg 10/18/2017 19:37 EDT [facility] Comment: Normal: <30 ug/mg Creat Microalbuminuria: 30-300 ug/mg Creat Clinical albuminuria: >300 ug/mg Creat Creatinine, Urine 66.40 mg/dL 10/18/2017 19:37 EDT [facility] 10/18/2017 11:3 0 EDT 10/18/2017 17:14 EDT Janki Jeffries MD HEMATOLOGY & PF4 ORD ERABLES [facility] * (ABNORMAL) ALBUMIN, URINE (10/18/2017 11:30 EDT) Albumin, Urine 9.80(H) <1.7 mg/dL 10/18/2017 19:37 EDT [facility] Lab Urine Albumin to Creatinine Ratio 147.5 ug/mg 10/18/2017 19:37 T [facility] Comment: Normal: <30 ug/mg Creat Microalbuminuria: 30-300 ug/mg Creat Clinical albuminuria: >300 ug/mg Creat Creatinine, Urine 66.40 mg/dL 10/18/2017 19:37 EDT [facility] 10/18/2017 11:3 0 EDT 10/18/2017 17:14 EDT Janki Jeffries MD CHEMISTRY & BLOOD GA S ORDERABLES [facility] documented in this encounter Visit Diagnoses Not on filedocumented in this encounter Care Teams Creative Producer Relationship Specialty Start Date End Date Bryant Crain MD [address] [place] [address] PCP - General 05/04/15 05/17/23 documented as of this encounter
--- OUTSIDE RECORDS SUMMARY | 2024-01-07 11:16 | XMS_ITS | Encounter Summary ---
Author Organization [facility] [place] [address] Care Team Providers Care Senior It Security Analyst Name Role Phone Franny Davison MD Primary Care Provider [phone] Reason for Visit * Reason Comments Follow-up Encounter Details Date Type Department Care Team (Late st Contact Info) Description 04/20/2011 4:45 PM EDT Office Visit Dermatology [address] [place] [address] [address] [place] [address] Ed Geller MD [address] [facility] [place] [address] Actinic keratosis treated with topical fluorouracil (5FU) (Primary Dx) Social History Tobacco Use Types [...] Progress Notes * Ed Geller MD - 04/20/2011 5:43 PM EDT Problem: Followup status post two weeks of 5-FU course. Joanna follows up and has had a mild to moderately brisk reaction to 5-FU which she has been applying religiously for the last two weeks. She has also been applying Triamcinolone Cream 30-minutes after each 5-FU application. Physical examination reveals patchy involvement, patchy reaction over the lateral cheeks and upper forehead but almost contiguous reaction on the upper lip and on the chin. The erythema is moderate, not excessive and while it is has felt sore and somewhat painful it has been very tolerable. Assessment & Plan: Diffuse actinic damage status post two-week course of 5-FU. a. Patient has done beautifully. b. As she has already done D/C 5-FU and instead just use Triamcinolone Cream 0.1% applying BID for two more weeks then D/C, 30gm tube given with no refills to fill at [facility]. c. RTC then in six months for repeat check. Cc: Franny Davison MD documented in this encounter Plan of Treatment Not on file documented as of this encounter Visit Diagnoses Diagnosis Actinic keratosis treated with topical fluorouracil (5FU)- Primary Actinic keratosis documented in this encounter Care Teams Senior It Security Analyst Relationship Specialty Start Date End Date Franny Davison MD [address] [place] [address] PCP - General 05/13/10 04/14/18 documented as of this encounter
--- OUTSIDE RECORDS SUMMARY | 2024-01-07 11:16 | XMS_ITS | Encounter Summary ---
Author Organization [facility] Address [facility] [place] [address] Care Team Providers Care Cut Off Saw Set Up Operator Name Role Phone Bryant Crain MD Primary Care Provider [phone] Encounter Details Date Type Department Care Team (Late st Contact Info) Description 09/14/2022 Telephone Cardiology at [address] [address] Jt Pedro PA [facility] [place] [address] Social History Tobacco Use Types Packs/Day Years [...] encounter Miscellaneous Notes * Telephone Encounter - Jt Pedro PA - 09/14/2022 5:24 PM EDT Encounter opened in error. documented in this encounter Plan of Treatment Not on file documented as of this encounter Visit Diagnoses Not on filedocumented in this encounter Care Teams Cut Off Saw Set Up Operator Relationship Specialty Start Date End Date Bryant Crain MD [address] [place] [address] PCP - General Internal Medicine 04/15/18 documented as of this encounter
--- OUTSIDE RECORDS SUMMARY | 2024-01-07 11:16 | XMS_ITS | Encounter Summary ---
Author Organization [facility] Address [facility] [place] [address] Care Team Providers Care Industrial Fabric Cutter Name Role Phone Bryant Crain MD Primary Care Provider Encounter Details Date Type Department Care Team (Late st Contact Info) Description 10/30/2022 Telephone Cardiology at [address] [address] Edgardo Odonnell MD [facility] [place] [address] Social History Tobacco Use Types Packs/Day Years [...] encounter Miscellaneous Notes * Telephone Encounter - Edgardo Odonnell MD - 10/30/2022 4:52 PM EDT [place] a call from ED physician Dr. Latisha Gill re: this pt who was sent to the ED reportedly because a [employer] ?MCOT monitor captured an 8 beat run of NSVT, occurring whilst swimming, entirely asymptomatic. Patient was called and directed to ED Neither Dr. Gill nor I have access to the tracing for review. Pt is asymptomatic. Reason for monitoring is unknown. Last known echo did not show cardiomyopathy. I opined that an 8 beat run of asymptomatic non-sustained ventricular tachycardia in a structurallynormal heart is generally a non-actionable finding. Edgardo Odonnell MD, PhD, [facility] Cardiac Electrophysiology 10/30/2022 4:55 PM documented in this encounter Plan of Treatment Not on file documented as of this encounter Visit Diagnoses Not on filedocumented in this encounter Care Teams Industrial Fabric Cutter Relationship Specialty Start Date End Date Bryant Crain MD [address] [place] [address] PCP - General Internal Medicine 04/15/18 documented as of this encounter
--- OUTSIDE RECORDS SUMMARY | 2024-01-07 11:16 | XMS_ITS | Encounter Summary ---
Author Organization [facility] [place] [address] Care Team Providers Care Composition Floor Layer Name Role Phone Franny Davison MD Primary Care Provider Encounter Details Date Type Department Care Team (Late st Contact Info) Description 01/07/2017 [place] [phone] Queta Arcos LPN Social History Tobacco Use [...] Telephone Encounter - Queta Arcos LPN - 01/07/2017 3:37 PM EDT R/c to patient I'm all screwed up. Am I supposed to be taking the humalog Taking Metformin XR 750 mg twice daily Glipizide 10 daily Trulicity 1.5 mg Humalog by scale. Letter dated 07/10/16 was reviewed with patient and it appears patient is taking humalog correctly Patient is asking to be seen sooner then February 10 as she needs Rx for humalog but does not want torefill should they change my meds Call transferred to law secretary. Scheduled for 01/12/17 documented in this encounter Plan of Treatment Not on file documented as of this encounter Visit Diagnoses Not on filedocumented in this encounter Care Teams Composition Floor Layer Relationship Specialty Start Date End Date Franny Davison MD [address] [place] [address] PCP - General 05/13/10 04/14/18 documented as of this encounter
--- OUTSIDE RECORDS SUMMARY | 2024-01-07 11:16 | XMS_ITS | Encounter Summary ---
Author Organization [facility] Address [facility] [place] [address] Care Team Providers Care Metal Bumper Name Role Phone Bryant Crain MD Primary Care Provider Encounter Details Date Type Department Care Team (Late st Contact Info) Description 11/10/2022 Ancillary Procedure [place] [address] Milagros Joseph MD [facility] [place] [address] Social History Tobacco Use Types Packs/Day Years [...] Associated Diagnosis Comments FILM LIBRARY STORAGE ONLY DX CHEST Routine 11/10/2022 12:00 AM EDT documented in this encounter Results * Film Library- Storage Only DX Chest (11/10/2022 12:00 AM EDT) Narrative [facility] - 11/11/2022 7:35 AM EDT This exam is auto-finalizing. It's purpose is for storage only. Milagros Joseph MD IM FILM LIBRARY ORD ERABLES Performing Organization Address City/State/[facility] Co de Phone Number [place], [place] documented in this encounter Visit Diagnoses Not on filedocumented in this encounter Care Teams Metal Bumper Relationship Specialty Start Date End Date Bryant Crain MD [address] [place] [address] PCP - General Internal Medicine 04/15/18 documented as of this encounter
--- OUTSIDE RECORDS SUMMARY | 2024-01-07 11:16 | XMS_ITS | Encounter Summary ---
[place] [address] Care Team Providers Care Keymodule Assembly Machine Tender Name Role Phone Franny Davison MD Primary Care Provider [phone] Reason for Visit * Reason Onset Date Comments Medication Refill 03/23/2016 Encounter Details Date Type Department Care Team (Late st Contact Info) Description 03/23/2016 [place] [address] Luna Galvez MD [facility] [place] [address] Diabetes mellitus without complication Social History Tobacco Use Types Packs/Day Years [...] as of this encounter Visit Diagnoses Diagnosis Diabetes mellitus without complication Type II or unspecified type diabetes mellitus without mention of complication, not stated as uncontrolled documented in this encounter Care Teams Keymodule Assembly Machine Tender Relationship Specialty Start Date End Date Franny Davison MD [address] [place] [address] PCP - General 05/13/10 04/14/18 documented as of this encounter
--- OUTSIDE RECORDS SUMMARY | 2024-01-07 11:16 | XMS_ITS | Encounter Summary ---
[place] [address] Care Team Providers Care Business Project Analyst Name Role Phone Franny Davison MD Primary Care Provider [phone] Encounter Details Date Type Department Care Team (Late st Contact Info) Description 03/02/2016 Telephone [place] [phone] Queta Arcos LPN Social History Tobacco Use [...] Telephone Encounter - Queta Arcos LPN - 03/02/2016 3:12 PM EDT R/c to patient PA is needed for Victoza. Forward to certified legal secretary specialist for PA documented in this encounter Plan of Treatment Not on file documented as of this encounter Visit Diagnoses Not on filedocumented in this encounter Care Teams Business Project Analyst Relationship Specialty Start Date End Date Franny Davison MD [address] [place], [place] [id number] PCP - General 05/13/10 04/14/18 documented as of this encounter
--- OUTSIDE RECORDS SUMMARY | 2024-01-07 11:16 | XMS_ITS | Encounter Summary ---
Author Organization [place] [address] Care Team Providers Care Aging Room Operator Name Role Phone Bryant Crain MD Primary Care Provider Encounter Details Date Type Department Care Team (Late st Contact Info) Description 10/30/2022 External [place] [phone] Social History Tobacco Use Types Packs/Day Years [...] Name Priority Date/Time Associated Diagnosis Comments ECG SCAN Routine 10/30/2022 documented in this encounter Results * Scan Doc: ECG (10/30/2022) Historical Provider MEDIA MGR SCAN EX T ORDR/RSLT documented in this encounter Visit Diagnoses Not on filedocumented in this encounter Care Teams Aging Room Operator Relationship Specialty Start Date End Date Bryant Crain MD [address] [place] [address] PCP - General Internal Medicine 04/15/18 documented as of this encounter
--- OUTSIDE RECORDS SUMMARY | 2024-01-07 11:16 | XMS_ITS | Encounter Summary ---
[place] [address] Care Team Providers Care Sport Internship Name Role Phone Franny Davison MD Primary Care Provider [phone] Reason for Visit * Reason Onset Date Comments Prior Authorization 03/02/2016 Encounter Details Date Type Department Care Team (Late st Contact Info) Description 03/02/2016 Telephone [place] [phone] Tammy Mason Prior Authorization Social History Tobacco Use Types Packs/Day Years [...] encounter Miscellaneous Notes * Telephone Encounter - Tammy Hendrix - 03/02/2016 3:19 PM EDT Medication Prior Authorization LATHIEF Medication name/dose/directions: VICTOZA) 0.6 mg/0.1 mL (18 mg/3 mL) Pen , Inject 1.8 mg subcutaneously daily. Start 0.6 mg daily for 1 week then 1.2 mg daily for 1 week then increase to 1.8 mg Rationale for request: DM TYPE 2 Health plan: [employer] Authorizing admissions representative name: TAMMY Faxed to health plan on: 03/02/16 Health plan decision: DENIED Quantity approved: Preferred Medications: Bydureon/Byetta, and Trulicity. Authorization number: Start date: End date: Patient notified? Pharmacy notified? documented in this encounter Plan of Treatment Not on file documented as of this encounter Visit Diagnoses Not on filedocumented in this encounter Care Teams Sport Internship Relationship Specialty Start Date End Date Franny Davison MD [address] [place] [address] PCP - General 05/13/10 04/14/18 documented as of this encounter
--- OUTSIDE RECORDS SUMMARY | 2024-01-07 11:16 | XMS_ITS | Encounter Summary ---
Author Organization [facility] Address [address] [place] [address] Care Team Providers Care Care Giver Name Role Phone Unavailable Primary Care Provider Unavailabl e Encounter Details Date Type Department Care Team (Late st Contact Info) Description 03/02/2001 Results Only [facility] Family Medicine [address] [address] Franyn Davison MD [address] [place] [phone] Social History Tobacco Use Types Packs/Day Years [...] Ancillary Procedure [facility] Cardiology [place] [address] 03/08/2024 10:15 EDT Ancillary Procedure [facility] Cardiology [place] [address] 04/05/2024 10:00 EDT Ancillary Procedure [facility] Cardiology Clinic [address] [place] [address] 04/05/2024 10:00 EDT Office Visit [facility] Cardiology Clinic [address] [place] [address] Carlos Ha NP [address] [facility] [address]-[address] [place] [address] documented as of this encounter Procedures Procedure Name Priority Date/Time Associated Diagnosis Comments CYTOPATHOLOGY Routine 03/02/2001 0:00 EDT documented in this encounter Results * CYTOPATHOLOGY (03/02/2001 0:00 EDT) Pathology Report: CYTOPATHOLOGY REPORT Reports generated via electronic interface contain original data; however they are lacking the format of the original report. Caution should be taken when reading/interpreti ng unformatted reports. Name: ? GAUTAM, JOANNA ? Accession #: ? [id number] : ? 1950 (Age: 50) ??F ?Collect Date: ? 03/02/2001 Location: ? [facility] ? Receive Date: ? 03/04/2001 Provider: ?FRANNY DAVISON MD Copy to: ? Specimen/Source: ?ThinPrep Pap Test, Vagina Last Menstrual Period: ? Many years ago. Treatment History: ? Hysterectomy: fibroids Other: ? DHPV - HPV testing requested if ASCUS/ABIMAEL on the current ThinPrep Pap test. ? SPECIMEN ADEQUACY ? Satisfactory for evaluation. GENERAL CATEGORIZATION ? Within Normal Limits ? Document reviewed and electronically signed by: ? CELINA Paula(ASCP) ? Report Date: ??03/08/2001 08:13 End of Report SILVESTRE YANG 03/02/2001 03/04/2001 Franny Davison MD PATHOLOGY ORDERABLES Performing Organization Address City/State/[facility] Co de Phone Number SILVESTRE YANG [address] [place] [address] documented in this encounter Visit Diagnoses Not on filedocumented in this encounter
--- OUTSIDE RECORDS SUMMARY | 2024-01-07 11:16 | XMS_ITS | Encounter Summary ---
Author Organization Formerly [facility], 1928–1983 Address [facility] [place] [address] Care Team Providers Care Automobile Brakes Bonder Name Role Phone Franny Davison MD Primary Care Provider [phone] Reason for Visit * Reason Comments Diabetes Encounter Details Date Type Department Care Team (Late st Contact Info) Description 01/12/2017 3:00 PM EDT Office [place] [address] Shikha Poole APRN [facility] [place] [address] Type 2 diabetes mellitus without complication, without [...] Sign Reading Time Taken Comments Blood Pressure 146/74 01/12/2017 3:10 PM EDT Pulse 85 01/12/2017 3:10 PM EDT Temperature - - Respiratory Rate - - Oxygen Saturation - - Inhaled Oxygen Concentration - - Weight 75.8 kg (167 lb) 01/12/2017 3:10 PM EDT Height 162.6 cm (5' 4) 01/12/2017 3:10 PM EDT Body Mass Index 28.67 01/12/2017 3:10 PM EDT documented in this encounter Patient Instructions * Patient Instructions* Shikha Poole APRN - 01/12/2017 3:00 PM EDT Advanced directives from care management office Stopped humalog (meal time) And changed to lantus (long acting) Start 4 units at night And increasedose by 1 unit weekly until AM glucsoe is under 130 documented in this encounter Progress Notes * Shikha Poole APRN - 01/12/2017 3:00 PM EDT REASON FOR VISIT: Followup type 2 DM in continued good control. BRIEF HISTORY: Presents and states that overall, she feels well. Sometimes, glucose levels are too low and sometimes, they are over 200. Date of diagnosis of diabetes approximately 10 years ago in 2006 on routine lab. States her glucose level was over 800 at the time of diagnosis. PAST MEDICAL HISTORY: Type 2 DM, rosacea. SOCIAL HISTORY: At home with her , enjoys time with her grandchildren. FAMILY HISTORY: She has 8 siblings, 1 sister and 1 brother have type 2 DM. DIABETES REGIMEN: Metformin 750 mg twice a day, glipizide 10 mg daily in a.m., Trulicity 1.5 mg weekly. She states Victoza daily worked much better for her. Humalog up to 5 units usually before evening meal. REVIEW OF SYSTEMS: Depression and mood overall is doing well, enjoys the home that she and her built. Eyes: No recent vision changes and no recent headaches or chest pain or shortness of breath, no recent GI symptoms. Appetite is the same. Sleep pattern is okay. Extremities are good. PHYSICAL EXAMINATION: Appearance: She appears in very good health. Weight 167 pounds, blood pressure 146/74. Eyes: No retinopathy with green light exam. Neck: No thyromegaly, lymphadenopathy. Heart: Regular rate and rhythm. Lungs: Clear to auscultation. Feet: Skin is normal, pulses are normal, neuro normal. Sensation to 10 Gs of pressure. SBGM 1 to 2 times a day. Hemoglobin A1c is 7.4%, previous was the same. Glucose level at time of lab draw was 212. IMPRESSION AND PLAN: Diabetes mellitus type 2 in good overall control. Will stop the Humalog and change to Lantus, start 4 units, increase dose by 1 unit weekly until fasting glucose level is under 130. She states they have been over 200 recently. She has proteinuria which she states has happened in the past several times and states several of her family members have proteinuria. LDL not at goal. She states she could not tolerate statin medications. Discussed doing advanced directives and she plans to pick them at care management office. This was a 34-minute office visit with 25 minutes spent counseling face to face with patient in the management of glucose levels, reviewing target glucose levels of between 90 and 130 before meals as much as possible. Physical activity: No planned regimen but does enjoy gardening. Return to office in May. Will check hemoglobin A1c. Recent Results (from the past 72 hour(s)) Basic Metabolic Panel (non-fasting) Result Value Ref Range Glucose Lvl 212 (H) 65 - 199 mg/dL BUN 17 8 - 18 mg/dL Creatinine 0.88 0.70 - 1.20 mg/dL Sodium 143 135 - 145 mmol/L Potassium 4.7 3.5 - 5.0 mmol/L Chloride 105 98 - 107 mmol/L CO2 24 22 - 31 mmol/L Anion Gap 14 5 - 15 mmol/L Calcium 10.9 (H) 8.5 - 10.5 mg/dL Estimated GFR >60 >=60 Hemoglobin A1c Result Value Ref Range Hemoglobin A1C 7.4 (H) 4.3 - 5.6 % Est Avg Gluc 166 mg/dL HDL/Cholesterol Profile Result Value Ref Range Chol, Total 245 (H) <=239 mg/dL HDL 40 >=40 mg/dL Chol/HDL Ratio 6.1 ratio Chol/HDL Interpretation See Note LDL Cholesterol, Direct Result Value Ref Range LDL Chol Direct 142 <=190 mg/dL U Albumin/Cre Ratio Result Value Ref Range Alb/Cr Ratio, Random 253 (H) 0 - 29 mcg/mg Cr U Albumin Conc, Random 243.2 mg/L U Creatinine 96 mg/dL documented in this encounter Plan of Treatment Not on file documented as of this encounter Results * (ABNORMAL) U Albumin/Cre Ratio (01/12/2017 2:17 PM EDT) Alb/Cr Ratio, Random 253(H) 0 - 29 mcg/mg Cr [facility] Comment: Reference Ranges: <30 mcg/mg: Normal 30-300 mcg/mg: Moderately increased albuminuria.* >300 mcg/mg: Severely increased albuminuria. * ACEI or ARB recommended if diabetic; suggested if BP>130/80 without diabetes ACEI or ARB strongly recommended if diabetic; recommended if BP>130/80 without diabetes Two of three specimens collected within a 3 to 6 month period should be abnormal before considering a patient to have albuminuria. Transient causes: exercise, fever, infection, CHF, marked hyperglycemia or hypertension. Persistent albuminuria indicates CKD and is an independent risk factor for ASCVD. ADA Standards of Medical Care in Diabetes-2016; KDIGO: Kidney International Supplements (2012) 2, 357? 362 U Albumin Conc, Random 243.2 mg/L [facility] U Creatinine 96 mg/dL [facility] Urine specimen (specimen) 01/12/2017 2:17 PM EDT 01/12/2017 2:23 PM EDT Narrative Resulting Agency Comment Spec In Lab Shikha E Biltaya ADDICTION NURSE URINE ORDERABLES Performing Organization Address City/[facility]/ZIP Co de Phone Number [facility] [place] [address] * LDL Cholesterol, Direct (01/12/2017 2:17 PM EDT) LDL Chol Direct 142 <=190 mg/dL [facility] Blood specimen (specimen) 01/12/2017 2:17 PM EDT 01/12/2017 2:22 PM EDT Narrative Resulting Agency Comment Spec In Lab Shikha E Bilotta ADDICTION NURSE CHEMISTRY ORDERABLE S Performing Organization Address City/[facility]/ZIP Co de Phone Number [facility] [place] [address] * (ABNORMAL) HDL/Cholesterol Profile (01/12/2017 2:17 PM EDT) Chol, Total 245(H) <=239 mg/dL [facility] HDL 40 >=40 mg/dL [facility] Chol/HDL Ratio 6.1 ratio [facility] Chol/HDL Interpretation See Note [facility] Comment: Lipid management should be guided by a patient? s ASCVD risk, goals and preferences. ACC/AHA Guidelines recommend high intensity statin if clinical ASCVD or LDL greater than or equal to 190 mg/dL. http://BioScrip.com/VFX-UOW-Ufnhwwwyd Measure LDL if Total Cholesterol minus HDL Cholesterol is greater than 220 mg/dL. Adults aged 40-75 with LDL 70-189 mg/dL should have their 10 year ASCVD risk estimated with the ACC/AHA ASCVD risk tabulating machine mechanic http://tools.acc.org/LWFLC-Pwgg-Cybdvqnnz/ Statin should be discussed if risk greater than or equal to 7.5% in non-diabetics. With diabetes, moderate intensity statin is recommended if risk less than 7.5%, high intensity if risk greater than or equal to 7.5%. Annual lipid monitoring on statins is not necessary. Lifestyle modification is a critical component of ASCVD risk reduction. Blood specimen (specimen) 01/12/2017 2:17 PM EDT 01/12/2017 2:22 PM EDT Narrative Resulting Agency Comment Spec In Lab Shikha Emily Zulema ANDERSON CHEMISTRY ORDERABLE S [facility] [place] [address] * (ABNORMAL) Hemoglobin A1c (01/12/2017 2:17 PM EDT) Hemoglobin A1C 7.4(H) 4.3 - 5.6 % [facility] Comment: Reference Range: 4.3 - [...] Mellitus, Diabetes Care 2013; 36: Suppl. 1, S67-02 Est Avg Gluc 166 mg/dL [facility] Comment: eAG equivalents for HbA1c percentages: HbA1c(%) ?eAG(mg/dL) 6.0 ?126 6.5 ?140 7.0 ?154 7.5 ?169 8.0 ?183 8.5 ?197 9.0 ?212 9.5 ?226 10.0 ? 240 Limitations: The eAG calculation has not been validated on women, individuals below 18 years old and above 70 years old, and individuals with hemoglobinopathies. Additional resources are available on the ADA website. Tyrone FINK, Rodger J, Vidal R, et al. ??Translating the A1C assay into estimated average glucose values. ??Diabetes Care 2008:31(8):9733-1890. Blood specimen (specimen) 01/12/2017 2:17 PM EDT 01/12/2017 2:22 PM EDT Narrative Resulting Agency Comment Spec In Lab Shikha Poole APRN CHEMISTRY ORDERABLE S [facility] [place] [address] * (ABNORMAL) Basic Metabolic Panel (non-fasting) (01/12/2017 2:17 PM EDT) Glucose Lvl 212(H) 65 - 199 mg/dL [facility] Comment:Diabetes: >=200 mg/d L plus symptoms BUN 17 8 - 18 mg/dL [facility] Creatinine 0.88 0.70 - 1.20 mg/dL [facility] Comment: Please note that the pediatric reference intervals supplied above were not validated at [facility]. Results from pediatric patients should be interpreted in conjunction to the patient's age, height and muscle mass. Sodium 143 135 - 145 mmol/L [facility] Potassium 4.7 3.5 - 5.0 mmol/L [facility] Comment: Please note: ??Patients with WBC >100,000 may have falsely elevated Potassium levels. ??For accurate Potassium quantification in these patients send serum separator tube (gold top) for subsequent determinations. ??Contact the Clinical Chemistry Laboratory if there are any questions. Chloride 105 98 - 107 mmol/L [facility] CO2 24 22 - 31 mmol/L [facility] Anion Gap 14 5 - 15 mmol/L [facility] Calcium 10.9(H) 8.5 - 10.5 mg/dL [facility] Estimated GFR >60 >=60 [facility] Comment: This estimated GFR (eGFR) value was calculated using the MDRD equation which has been validated on patients between the ages of 18 and 70. The MDRD should not be used to assess kidney function in patients < 18 years of age or in patients with extremes of body mass, or in patients with acute kidney failure. This value should be multiplied by 1.2 for patients. For further information please copy and paste the following links into your internet browser. http://Prosensa/DHnkdep http://Prosensa/DHMCnkf Blood specimen (specimen) 01/12/2017 2:17 PM EDT 01/12/2017 2:22 PM EDT Narrative Resulting Agency Comment Spec In Lab Shikha Poole APRN CHEMISTRY ORDERABLE S [facility] [place] [address] documented in this encounter Visit Diagnoses Diagnosis Type 2 diabetes mellitus without complication, without long-term current use of insulin documented in this encounter Care Teams Automobile Brakes Bonder Relationship Specialty Start Date End Date Franny Davison MD [address] [place] [address] PCP - General 05/13/10 04/14/18 documented as of this encounter
--- OUTSIDE RECORDS SUMMARY | 2024-01-07 11:16 | XMS_ITS | Encounter Summary ---
Author Organization [place] [id number] Care Team Providers Care Animal Husbandry Technician Name Role Phone Franny Davison MD Primary Care Provider Reason for Visit * Reason Onset Date Comments Medication Refill 03/26/2016 Encounter Details Date Type Department Care Team (Late st Contact Info) Description 03/26/2016 [place] [id number] Karrie Buck RN Social History Tobacco Use Types Packs/Day Years [...] encounter Miscellaneous Notes * Telephone Encounter - Karrie Buck RN - 03/29/2016 7:55 AM EDT Opened in error documented in this encounter Plan of Treatment Not on file documented as of this encounter Visit Diagnoses Not on filedocumented in this encounter Care Teams Animal Husbandry Technician Relationship Specialty Start Date End Date Franny Davison MD [address] [place], [place] [address] PCP - General 05/13/10 04/14/18 documented as of this encounter
--- OUTSIDE RECORDS SUMMARY | 2024-01-07 11:16 | XMS_ITS | Encounter Summary ---
Author Organization [facility] [place] [address] Care Team Providers Care Wireless Field Technician Name Role Phone Bryant Crain MD Primary Care Provider [phone] Reason for Visit * Auth/Cert (Routine) Specialty Diagnoses / Procedures Referred By Contloreto t Referred To Contact Diagnoses Gastrointestinal hemorrhage, unspecified Procedures [employer] [facility] Referral ID Status Reason Start Date Expiration Date Visits Re quested Visits Authorized [id number] 1 1 Encounter Details Date Type Department Care Team (Latest Contact Info) Description 11/11/2022 11:43 AM EDT - 11/11/2022 11:59 PM EDT Hospital Encounter [facility] at [address] [phone] Micha Tejeda MD [facility] [place] [address] Discharge Disposition: Home Social History Tobacco Use Types Packs/Day Years Used Date Smoking Tobacco: Never Smokeless Tobacco: Never Alcohol Use Standard Drinks/Week Comments Not Asked 0 (1 standard drink = 0.6 oz pur e alcohol) Sex and Gender Information Value Date Recorded Sex Assigned at Not on file Gender Identity Not on file Sexual Orientation Not on file documented as of this encounter Medications at Time of Discharge Medication Sig Dispensed Refills Start Date End Date ELIQUIS 5 mg Tablet 01/31/2019 cefPODOXime (VANTIN) 200 mg Tablet TAKE 1 TABLET BY MOUTH EVERY MORNING & EVERY EVENING. 0 12/26/2018 cephALEXin (KEFLEX) 500 mg Capsule take 1 capsule by mouth three times a day for 7 days 0 11/04/2018 COLCRYS 0.6 mg Tablet TAKE 1 TABLET BY MOUTH TWICE A DAY 0 12/26/2018 gabapentin (NEURONTIN) 300 mg Capsule 01/31/2019 VICTOZA 3-JIN 0.6 mg/0.1 mL (18 mg/3 mL) Pen Injector 12/23/2018 magnesium oxide (MAG-OX) 400 mg (241.3 mg magnesium) Tablet Take 400 mg by mouth. nitrofurantoin, macrocrystal-monohydr ate, (MACROBID) 100 mg Capsule take 1 capsule by mouth twice a day for 5 days 0 12/09/2018 TRULICITY 0.75 mg/0.5 mL Pen Injector 02/13/2019 clotrimazole-betameth asone (LOTRISONE) 1-0.05 % Cream Apply sparingly BID for 2-3 days to under breast rash until clear 45 g 1 04/15/2018 metFORMIN (GLUCOPHAGE-XR) 750 mg Tablet Sustained Release 24 hr Take 1 tablet by mouth 2 times daily (with meals). 180 tablet 3 03/27/2017 glipiZIDE (GLUCOTROL XL) 10 mg Tablet Extended Rel 24 hr Take 1 tablet by mouth every morning. 90 tablet 3 03/27/2017 insulin glargine (LANTUS SOLOSTAR) Insulin Pen Inject 8-12 Units subcutaneously nightly. 15 mL 3 01/12/2017 UNIFINE PENTIPS 32 gauge x 5/32 Needle Inject 1 each subcutaneously 2 times daily. 02/05/2016 candesartan (ATACAND) 32 mg Tablet Take 32 mg by mouth daily. 02/15/2016 ONETOUCH ULTRA TEST Strip 1 each by Other route 4 times daily. 09/25/2015 insulin needles, disposable, (BD INSULIN PEN NEEDLE UF MINI) 31 gauge x 3/16 NeedleIndications:Hermelinda betes mellitus without complication Inject victoza 1.8 mg daily 100 each 3 02/18/2016 cetirizine (ZYRTEC) 10 mg tablet Take 10 mg by mouth daily. aspirin 81 mg EC tablet Take 81 mg by mouth daily. documented as of this encounter Plan of Treatment Not on file documented as of this encounter Visit Diagnoses Not on filedocumented in this encounter Care Teams Wireless Field Technician Relationship Specialty Start Date End Date Bryant Crain MD [address] [place] [address] PCP - General Internal Medicine 04/15/18 documented as of this encounter
--- OUTSIDE RECORDS SUMMARY | 2024-01-07 11:16 | XMS_ITS | Encounter Summary ---
[place] [address] Care Team Providers Care Supervising Chef Name Role Phone Franny Davison MD Primary Care Provider [phone] Reason for Visit * Reason Onset Date Comments Medication Refill 03/09/2016 Encounter Details Date Type Department Care Team (Late st Contact Info) Description 03/09/2016 Refill [place] [phone] Vashti Avila, RN Social History Tobacco Use Types Packs/Day [...] encounter Miscellaneous Notes * Telephone Encounter - Vashti Avila RN - 03/09/2016 2:03 PM EDT Received page from patient and patient's . States that they received notice from insurance that the victoza PA has been denied must try alternative. Joanna would like to go with Sangeetha as thisis the cheaper alternative. Spoke with MD who would like patient to start with 5mcg daily for 1 month to see if tolerated documented in this encounter Plan of Treatment Not on file documented as of this encounter Visit Diagnoses Not on filedocumented in this encounter Care Teams Supervising Chef Relationship Specialty Start Date End Date Franny Davison MD [address] [place] [address] PCP - General 05/13/10 04/14/18 documented as of this encounter
--- OUTSIDE RECORDS SUMMARY | 2024-01-07 11:16 | XMS_ITS | Encounter Summary ---
[place] [address] Care Team Providers Care Guard Captain Name Role Phone Bryant Crain MD Primary Care Provider Reason for Visit * Diagnostic Test (Routine) - Closed Specialty Diagnoses / Procedures Referred By Charo daniel Referred To Contact Radiology Diagnoses Parkinson's disease Procedures NM Brain Imaging for Parkinsons Disease Zandra Paredes MD [facility] [address] [place] [address] [place] [address] Referral ID Status Reason Start Date Expiration Date V isits Requested Visits Authorized [id number] Closed Specialty Service Requested 08/07/2021 02/04/2023 1 1 Encounter Details Date Type Department Care Team (Late st Contact Info) Description 10/21/2021 12:59 PM EDT - 10/21/2021 11:59 PM EDT Hospital Encounter [place] [address] Zandra Paredes MD [facility] [address] [place], [place] [id number] Discharge Disposition: Home Social History Tobacco Use [...] UF MINI) 31 gauge x 3/16 NeedleIndications:Hermelinda betnathan mellitus without complication Inject victoza 1.8 mg daily 100 each 3 02/18/2016 cetirizine (ZYRTEC) 10 mg tablet Take 10 mg by mouth daily. aspirin 81 mg EC tablet Take 81 mg by mouth daily. documented as of this encounter Plan of Treatment Not on file documented as of this encounter Procedures Procedure Name Priority Date/Time Associated Diagnosis Comments NM BRAIN IMAGING FOR PARKINSONS DISEASE Routine 10/21/2021 2:19 PM EDT Parkinson's disease documented in this encounter Results * NM Brain Imaging for Parkinsons Disease (10/21/2021 2:19 PM EDT) Anatomical Region Laterality Modality Nuclear Medicine Impressions 10/22/2021 3:27 PM EDT Normal dopamine transporter scan. No evidence for a Parkinsonian syndrome. I have personally reviewed the image(s) and the resident's interpretation and agree with the findings, Oneal Barroso MD at 10/22/2021 3:27 PM Thank you for letting us participate in the care of this patient. ??If you are a health care provider and have any questions regarding this report, please contact the number below. ??For patients who have questions please contact the health vision care associate that requested your imaging first. ? Narrative 10/22/2021 3:27 PM EDT EXAMINATION: NM BRAIN IMAGING FOR PARKINSONS DISEASE CLINICAL HISTORY: Parkinsons; h/o strokes. History of a left parietal lobe infarction in 2017. TECHNIQUE: Pretreatment with oral potassium iodide was given. Following this, I-123 ioflupane was administered intravenously in a dose of 5 mCi. Four hours later, tomographic imaging of the brain was performed with images reconstructed in the axial, sagittal and coronal planes COMPARISON: None FINDINGS: Symmetric normal-appearing tracer uptake in the bilateral caudate and putamen. Procedure Note Oneal Barroso MD - 10/22/2021 EXAMINATION: NM BRAIN IMAGING FOR PARKINSONS DISEASE CLINICAL HISTORY: Parkinsons; h/o strokes. History of a left parietallobe infarction in 2017. TECHNIQUE: Pretreatment with oral potassium iodide was given. Followingthis, I-123 ioflupane was administered intravenously in a dose of 5 mCi. Fourhours later, tomographic imaging of the brain was performed with imagesreconstructed in the axial, sagittal and coronal planes COMPARISON: None FINDINGS: Symmetric normal-appearing tracer uptake in the bilateral caudate andputamen. IMPRESSION Normal dopamine transporter scan. No evidence for a Parkinsoniansyndrome. I have personally reviewed the image(s) and the resident's interpretationand agree with the findings, Oneal Barroso MD at 10/22/2021 3:27 PM Thank you for letting us participate in the care of this patient. If youare a health care provider and have any questions regarding this report,please contact the number below. For patients who have questions please contactthe health vision care associate that requested your imaging first. Zandra Paredes MD [facility] ORDERABLES documented in this encounter Visit Diagnoses Not on filedocumented in this encounter Care Teams Guard Captain Relationship Specialty Start Date End Date Bryant Crain MD [address] [place] [address] PCP - General Internal Medicine 04/15/18 documented as of this encounter
--- OUTSIDE RECORDS SUMMARY | 2024-01-07 11:16 | XMS_ITS | Clinical Summary ---
Author Organization [facility] [place] [address] Care Team Providers Care Wastewater Plant Civil Engineer Name Role Phone Bryant Crain MD Primary Care Provider [phone] Allergies Active Allergy Reactions Criticality Noted Date Comments Iodine And Iodide Containing Products 01/27/2011 Propoxyphene N-Acetaminophen 011 Oxycodone-Acetaminophen 01/27/2011 Medications Medication Sig Dispensed Refills Start Date End Date Status cetirizine (ZYRTEC) 10 mg tablet Take 10 mg by mouth daily. Active aspirin 81 mg EC tablet Take 81 mg by mouth daily. Active UNIFINE PENTIPS 32 gauge x Needle Inject 1 each subcutaneously 2 times daily. 02/05/2016 Active candesartan (ATACAND) 32 mg Tablet Take 32 mg by mouth daily. 02/15/2016 Active ONETOUCH ULTRA TEST Strip 1 each by Other route 4 times daily. 09/25/2015 Active insulin needles, disposable, (BD INSULIN PEN NEEDLE UF MINI) 31 gauge x 3/16 NeedleIndications: Diabetes mellitus without complication Inject victoza 1.8 mg daily 100 each 3 02/18/2016 Active insulin glargine (LANTUS SOLOSTAR) Insulin Pen Inject 8-12 Units subcutaneously nightly. 15 mL 3 01/12/2017 Active metFORMIN (GLUCOPHAGE-XR) 750 mg Tablet Sustained Release 24 hr Take 1 tablet by mouth 2 times daily (with meals). 180 tablet 3 03/27/2017 Active glipiZIDE (GLUCOTROL XL) 10 mg Tablet Extended Rel 24 hr Take 1 tablet by mouth every morning. 90 tablet 3 03/27/2017 Active clotrimazole-betam ethasone (LOTRISONE) 1-0.05 % Cream Apply sparingly BID for 2-3 days to under breast rash until clear 45 g 1 04/15/2018 Active ELIQUIS 5 mg Tablet 01/31/2019 Active cefPODOXime (VANTIN) 200 mg Tablet TAKE 1 TABLET BY MOUTH EVERY MORNING & EVERY EVENING. 0 12/26/2018 Active cephALEXin (KEFLEX) 500 mg Capsule take 1 capsule by mouth three times a day for 7 days 0 11/04/2018 Active COLCRYS 0.6 mg Tablet TAKE 1 TABLET BY MOUTH TWICE A DAY 0 12/26/2018 Active gabapentin (NEURONTIN) 300 mg Capsule 01/31/2019 Active VICTOZA 3-JIN 0.6 mg/0.1 mL (18 mg/3 mL) Pen Injector 12/23/2018 Active magnesium oxide (MAG-OX) 400 mg (241.3 mg magnesium) Tablet Take 400 mg by mouth. Active nitrofurantoin, macrocrystal-monoh ydrate, (MACROBID) 100 mg Capsule take 1 capsule by mouth twice a day for 5 days 0 12/09/2018 Active TRULICITY 0.75 mg/0.5 mL Pen Injector 02/13/2019 Active Active Problems Problem Noted Date Diagnosed Date Bilateral leg numbness 11/28/2023 Vertigo 11/28/2023 Diabetes mellitus, type 2 01/26/2011 Overview (03/20/2012): On metformin Rosacea 01/26/2011 Overview (01/26/2011): previously on Elidel Encounters Date Type Department Care Team Description 11/28/2023 9:05 PM EDT Telehealth [place] [address] Telehealth, Neurology Bilateral leg numbness; Vertigo from Last 3 Months Social History Tobacco Use Types Packs/Day Years Used Date Smoking Tobacco: Never Smokeless Tobacco: Never Alcohol Use Standard Drinks/Week Comments Not Asked 0 (1 standard drink = 0.6 oz pur e alcohol) Sex and Gender Information Value Date Recorded Sex Assigned at Not on file Gender Identity Not on file Sexual Orientation Not on file Last Filed [...] Mass Index 28.67 01/12/2017 3:10 PM EDT Plan of Treatment Health Maintenance Due Date Last Done Comments CT Colonography 1950 Colonoscopy 1950 Colorectal Cancer Screening 1950 FIT DNA 1950 FIT 1950 Sigmoidoscopy (10 year) with FIT yearly 1950 Sigmoidoscopy 1950 Pneumoccocal Vaccine: 65+ (1 of 2 - PCV) 1958 DM Opthalmology Exam 1962 Hepatitis C Screening 1970 Tdap adult 1971 Tetanus vaccine 1971 Breast Cancer Share Decision Needed 1992 Breast Cancer screening 1992 Zoster vaccine (1 of 2) 2002 Advance Directive 2007 DM Hemoglobin A1c 04/14/2017 01/12/2017, 07/09/2016 Bone Density Scan 2017 DM Creatinine yearly 01/12/2018 01/12/2017 DM Urine Microalbumin yearly 01/12/2018 01/12/2017 Lipid Screening 01/12/2022 01/12/2017 Covid-19 Vaccine (5 2022-2 4 season) 2023 03/25/2023, 05/07/2022, 11/03/2021, Additional history exists Influenza (Flu) vaccine (1 o f 1 - Influenza standard series) 02/20/2024 Procedures Procedure Name Priority Date/Time Associated Diagnosis Comments HDL/CHOL PROFILE Routine 01/12/2017 2:17 PM EDT Type 2 diabetes mellitus without complication, without long-term current use of insulin HEMOGLOBIN A1C Routine 01/12/2017 2:17 PM EDT Type 2 diabetes mellitus without complication, without long-term current use of insulin BASIC METABOLIC PANEL (NON-FASTING) Routine 01/12/2017 2:17 PM EDT Type 2 diabetes mellitus without complication, without long-term current use of insulin U ALBUMIN/CRE RATIO Routine 01/12/2017 2 :17 PM EDT Type 2 diabetes mellitus without complication, without long-term current use of insulin from Last 3 Months or Most Recently Relevant to Health Maintenance Results * (ABNORMAL) U Albumin/Cre Ratio (01/12/2017 2:17 PM EDT) Alb/Cr Ratio, Random 253(H) 0 - 29 mcg/mg Cr [facility] Comment: Reference Ranges: <30 mcg/mg: [...] 362 U Albumin Conc, Random 243.2 mg/L [facility] U Creatinine 96 mg/dL [facility] Urine specimen (specimen) 01/12/2017 2:17 PM EDT 01/12/2017 2:23 PM EDT Narrative Resulting Agency Comment Spec In Lab Shikha Poole APRN URINE ORDERABLES [facility] [place] [address] * (ABNORMAL) HDL/Cholesterol Profile (01/12/2017 2:17 PM EDT) Chol, Total 245(H) <=239 mg/dL [facility] HDL 40 >=40 mg/dL [facility] Chol/HDL Ratio 6.1 ratio [facility] Chol/HDL Interpretation See Note [facility] Comment: Lipid management should be guided by a patient? s ASCVD risk, goals and preferences. ACC/AHA Guidelines recommend high intensity statin if clinical ASCVD or LDL greater than or equal to 190 mg/dL. http://Smartsyurl.com/XHJ-SMH-Iwpcwilux Measure LDL if Total Cholesterol minus HDL Cholesterol is greater than 220 mg/dL. Adults aged 40-75 with LDL 70-189 mg/dL should have their 10 year ASCVD risk estimated with the ACC/AHA ASCVD risk buffer nickel http://tools.acc.org/IUDYE-Muhn-Qgqdsthna/ Statin should be discussed if risk greater [...] Shikha Emily Zulema ANDERSON CHEMISTRY ORDERABLE S [facility] [place] [address] * (ABNORMAL) Hemoglobin A1c (01/12/2017 2:17 PM EDT) Hemoglobin A1C 7.4(H) 4.3 - 5.6 % [facility] Comment: Reference Range: 4.3 - [...] 1, S67-74 Est Avg Gluc 166 mg/dL [facility] Comment: eAG equivalents for HbA1c [...] into estimated average glucose values. ??Diabetes Care 2008:31(8):4955-2597. Blood specimen (specimen) 01/12/2017 2:17 PM EDT 01/12/2017 2:22 PM EDT Narrative Resulting Agency Comment Spec In Lab Shikha Poole APRN CHEMISTRY ORDERABLE S [facility] [place] [address] * (ABNORMAL) Basic Metabolic Panel (non-fasting) (01/12/2017 2:17 PM EDT) Glucose Lvl 212(H) 65 - 199 mg/dL [facility] Comment:Diabetes: >=200 mg/d L plus symptoms BUN 17 8 - 18 mg/dL [facility] Creatinine 0.88 0.70 - 1.20 mg/dL [facility] Comment: Please note that the pediatric reference intervals supplied above were not validated at [facility]. Results from pediatric patients should be interpreted in conjunction to the patient's age, height and muscle mass. Sodium 143 135 - 145 mmol/L [facility] Potassium 4.7 3.5 - 5.0 mmol/L [facility] Comment: Please note: ??Patients with WBC >100,000 may have falsely elevated Potassium levels. ??For accurate Potassium quantification in these patients send serum separator tube (gold top) for subsequent determinations. ??Contact the Clinical Chemistry Laboratory if there are any questions. Chloride 105 98 - 107 mmol/L [facility] CO2 24 22 - 31 mmol/L [facility] Anion Gap 14 5 - 15 mmol/L [facility] Calcium 10.9(H) 8.5 - 10.5 mg/dL [facility] Estimated GFR >60 >=60 [facility] Comment: This estimated GFR (eGFR) [...] the following links into your internet browser. [email or web address] [email or web address] [email or web address] Blood specimen (specimen) 01/12/2017 2:17 PM EDT 01/12/2017 2:22 PM EDT Narrative Resulting Agency Comment Spec In Lab Shikha Poole APRN CHEMISTRY ORDERABLE S [facility] [place] [address] from Last 3 Months or Most Recently Relevant to Health Maintenance Care Teams Wastewater Plant Civil Engineer Relationship Specialty Start Date End Date Bryant Crain MD [address] [place] [address] PCP - General Internal Medicine 04/15/18
--- OUTSIDE RECORDS SUMMARY | 2024-01-07 11:16 | XMS_ITS | Encounter Summary ---
Author Organization [facility] [place] [address] Care Team Providers Care Stripe Matcher Name Role Phone Franny Davison MD Primary Care Provider [phone] Encounter Details Date Type Department Care Team (Late st Contact Info) Description 05/01/2017 [place] [address] Mark Mcclure MD [facility] [place] [address] Social History Tobacco Use Types Packs/Day Years [...] encounter Miscellaneous Notes * Telephone Encounter - Mark Mcclure MD - 05/01/2017 9:20 PM EST I was called by Eli Rosario at [facility] regarding this patient. The patient has a history of DM, HTN, HLD who presented first on 04/28 with symptoms of right leg weakness. Her CT at that time was negative. She was admitted for stroke work up. Echo showed no PFO. Telemetry was NSR. 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 CUS did not show stenosis. Her symptoms resolved and she was discharged home yesterday. Today at 11am today she had a re-emergence of her right leg weakness. On exam she has only mild weakness in the right leg. Her speech was possibly slow. Her head CT tonight shows no acute findings. She is taking plavix daily and a statin for stroke prevention. She was taking a aspirin 81 mg priorto 04/28 and was advanced to plavix after her first event. I would recommend obtaining an CT CACO. I would obtain MRI brain wo contrast. She should be maintained on telemetry. I would advance to dual therapy with aspirin 81 mg and plavix 75 mg daily. She should be admitted and monitored closely and evaluated by PT and OT. documented in this encounter Plan of Treatment Not on file documented as of this encounter Visit Diagnoses Not on filedocumented in this encounter Care Teams Stripe Matcher Relationship Specialty Start Date End Date Franny Davison MD [address] [place] [address] PCP - General 05/13/10 04/14/18 documented as of this encounter
--- OUTSIDE RECORDS SUMMARY | 2024-01-07 11:16 | XMS_ITS | Encounter Summary ---
[place] [address] Care Team Providers Care Peoplesoft Analyst Name Role Phone Franny Davison MD Primary Care Provider [phone] Encounter Details Date Type Department Care Team (Late st Contact Info) Description 05/22/2010 5:15 PM EST Office Visit Dermatology [address] [facility] [address] [place] [address] Ed Geller MD [address] [facility] [place] [address] Social History Tobacco Use Types Packs/Day Years Used Date Smoking Tobacco: Never Assessed Sex and Gender Information Value Date Recorded Sex Assigned at Not on file Gender Identity Not on file Sexual Orientation Not on file documented as of this encounter Plan of Treatment Not on file documented as of this encounter Visit Diagnoses Not on filedocumented in this encounter Care Teams Peoplesoft Analyst Relationship Specialty Start Date End Date Franny Davison MD [address] [place] [address] PCP - General 05/13/10 04/14/18 documented as of this encounter
--- OUTSIDE RECORDS SUMMARY | 2024-01-07 11:16 | XMS_ITS | Encounter Summary ---
[place] [address] Care Team Providers Care Criminal Defense Lawyer Name Role Phone Franny Davison MD Primary Care Provider [phone] Encounter Details Date Type Department Care Team (Latest Contact Info) Description 01/12/2017 2:00 PM EDT Laboratory Appointment Lab [address] [place] [id number] Type 2 diabetes mellitus without complication, without [...] Procedure Name Priority Date/Time Associated Diagnosis Comments U ALBUMIN/CRE RATIO Routine 01/12/2017 2 :17 PM EDT Type 2 diabetes mellitus without complication, without long-term current use of insulin LDL CHOLESTEROL, DIRECT Routine 01/12/2017 2:17 PM EDT Type 2 diabetes mellitus without complication, without long-term current use of insulin HDL/CHOL PROFILE Routine 01/12/2017 2:17 PM EDT [...] documented in this encounter Results * (ABNORMAL) U Albumin/Cre Ratio (01/12/2017 2:17 PM EDT) Alb/Cr Ratio, Random 253(H) 0 - 29 mcg/mg Cr [facility] Comment: Reference Ranges: <30 mcg/mg: [...] 362 U Albumin Conc, Random 243.2 mg/L [facility] U Creatinine 96 mg/dL [facility] Urine specimen (specimen) 01/12/2017 2:17 PM EDT 01/12/2017 2:23 PM EDT Narrative Resulting Agency Comment Spec In Lab Shikha Poole APRN URINE ORDERABLES [facility] [place] [address] * LDL Cholesterol, Direct (01/12/2017 2:17 PM EDT) LDL Chol Direct 142 <=190 mg/dL [facility] Blood specimen (specimen) 01/12/2017 2:17 PM EDT 01/12/2017 2:22 PM EDT Narrative Resulting Agency Comment Spec In Lab Shikha Poole ASSOCIATE PROFESSOR OF LAW CHEMISTRY ORDERABLE S Performing Organization Address City/[facility]/ZIP Co de Phone Number [facility] [place] [address] * (ABNORMAL) HDL/Cholesterol Profile (01/12/2017 2:17 PM EDT) Chol, Total 245(H) <=239 mg/dL [facility] HDL 40 >=40 mg/dL [facility] Chol/HDL Ratio 6.1 ratio [facility] Chol/HDL Interpretation See Note [facility] Comment: Lipid management should be guided by a patient? s ASCVD risk, goals and preferences. ACC/AHA Guidelines recommend high intensity statin if clinical ASCVD or LDL greater than or equal to 190 mg/dL. http://CaseRails.com/YNG-AIU-Vztuqkbif Measure LDL if Total Cholesterol minus HDL Cholesterol is greater than 220 mg/dL. Adults aged 40-75 with LDL 70-189 mg/dL should have their 10 year ASCVD risk estimated with the ACC/AHA ASCVD risk tool grinder http://tools.acc.org/NEGZX-Baxy-Hprisvgzu/ Statin should be discussed if risk greater [...] Agency Comment Spec In Lab Shikha Poole ASSOCIATE PROFESSOR OF LAW CHEMISTRY ORDERABLE S Performing Organization Address [facility]/ZIP Co de Phone Number [facility] [place] [address] * (ABNORMAL) Hemoglobin A1c (01/12/2017 2:17 PM EDT) Hemoglobin A1C 7.4(H) 4.3 - 5.6 % [facility] Comment: Reference Range: 4.3 - [...] 1, S67-74 Est Avg Gluc 166 mg/dL [facility] Comment: eAG equivalents for HbA1c [...] into estimated average glucose values. ??Diabetes Care 2008:31(8):3187-0773. Blood specimen (specimen) 01/12/2017 2:17 PM EDT 01/12/2017 2:22 PM EDT Narrative Resulting Agency Comment Spec In Lab Shikha E Bilotta ASSOCIATE PROFESSOR OF LAW CHEMISTRY ORDERABLE S [facility] [place] [address] * (ABNORMAL) Basic Metabolic Panel (non-fasting) (01/12/2017 2:17 PM EDT) Glucose Lvl 212(H) 65 - 199 mg/dL [facility] Comment:Diabetes: >=200 mg/d L plus symptoms BUN 17 8 - 18 mg/dL [facility] Creatinine 0.88 0.70 - 1.20 mg/dL [facility] Comment: Please note that the pediatric reference intervals supplied above were not validated at [facility]. Results from pediatric patients should be interpreted in conjunction to the patient's age, height and muscle mass. Sodium 143 135 - 145 mmol/L [facility] Potassium 4.7 3.5 - 5.0 mmol/L [facility] Comment: Please note: ??Patients with WBC >100,000 may have falsely elevated Potassium levels. ??For accurate Potassium quantification in these patients send serum separator tube (gold top) for subsequent determinations. ??Contact the Clinical Chemistry Laboratory if there are any questions. Chloride 105 98 - 107 mmol/L [facility] CO2 24 22 - 31 mmol/L [facility] Anion Gap 14 5 - 15 mmol/L [facility] Calcium 10.9(H) 8.5 - 10.5 mg/dL [facility] Estimated GFR >60 >=60 [facility] Comment: This estimated GFR (eGFR) value [...] the following links into your internet browser. [email or web address] [email or web address] Blood specimen (specimen) 01/12/2017 2:17 PM EDT 01/12/2017 2:22 PM EDT Narrative Resulting Agency Comment Spec In Lab Shikha Emily Zulema ANDERSON CHEMISTRY ORDERABLE S Performing Organization Address City/State/[facility] Co de Phone Number [facility] [place] [address] documented in this encounter Visit Diagnoses Diagnosis Type 2 diabetes mellitus without complication, without long-term current use of insulin documented in this encounter Care Teams Criminal Defense Lawyer Relationship Specialty Start Date End Date Franny Davison MD [address] [place] [address] PCP - General 05/13/10 04/14/18 documented as of this encounter
--- OUTSIDE RECORDS SUMMARY | 2024-01-07 11:16 | XMS_ITS | Encounter Summary ---
Author Organization [facility] Address [address] [place] [address] Care Team Providers Care Order Entry Representative Name Role Phone Unavailable Primary Care Provider Unavailabl e Encounter Details Date Type Department Care Team (Late st Contact Info) Description 11/19/2004 Results Only [facility] [place] conversion [address] [place] [address] Raji Cook MD [address] [place] [phone] Social History Tobacco Use Types Packs/Day Years Used Date Smoking Tobacco: Never Assessed Sex and Gender Information Value Date Recorded Sex Assigned at Not on file Gender Identity Female 06/01/2019 10:00 EST Sexual Orientation Not on file documented as of this encounter Plan of Treatment Upcoming Encounters Date Type Department Care Team (Late st Contact Info) Description 03/08/2024 9:30 EDT Ancillary Procedure [facility] [place] [address] 03/08/2024 10:15 EDT Ancillary Procedure [facility] - [facility] [place] [address] 04/05/2024 10:00 EDT Ancillary Procedure [facility] [address] [place] [address] 04/05/2024 10:00 EDT Office Visit [facility] [address] [place] [address] Carlos Ha NP [address] [facility] [address] [place] [address] documented as of this encounter Procedures Procedure Name Priority Date/Time Associated Diagnosis Comments SURGICAL PATHOLOGY Routine 11/19/2004 0:00 EDT documented in this encounter Results * SURGICAL PATHOLOGY (11/19/2004 0:00 EDT) Pathology Report: SURGICAL PATHOLOGY REPORT Reports generated via electronic interface contain original data; however they are lacking the format of the original report. Caution should be taken when reading/interpreti ng unformatted reports. Name: ? TANNER, JOANNA ? Accession #: ? [id number] ? : ? 1950 (Age: 54) ??F ? Collect Date: ? 11/19/2004 ? Location: ? [facility] ? Receive Date: ? 11/20/2004 ? Provider: RAJI COOK MD Copy to: SHANNAN CURTIS MD ? Final Pathologic Diagnosis: A. ?Colon, hepatic flexure, polyp, biopsy: 1. ?Hyperplastic polyp. 2. ?No adenomatous mucosa identified. B. ?Rectum, polyp, biopsy: 1. ?Hyperplastic polyp. 2. ?No adenomatous mucosa identified. Document reviewed and electronically signed by: SULEMAN MARLEY MD Report ??Date: 11/24/2004 16:24 By the signature above, the attending physician certifies that he/she has personally conducted a gross and/or microscopic examination of the described specimens and rendered or confirmed the above diagnosis. Specimen(s) Received: ? A. Possible polyp hepatic flexure B. Rectal polyp Clinical History: ? Colonoscopy; PMH rectal bleed Gross Description: ? Received in Hollande' s fixative labeled Tanner and possible polyp hepatic flexure is a 0.1 x 0.1 x 0.1 cm castillo-pink polypoid soft tissue. The specimen is submitted intact as (A). Received in Hollande' s fixative labeled Tanner and rectal polyp is a 0.1 x 0.1 x 0.1 cm castillo-pink polypoid soft tissue. The specimen is submitted intact as (B). (Alton Covarrubias)/mpl End of Report [facility] 11/19/2004 11/20/2004 9:1 7 EDT Raji Cook MD PATHOLOGY ORDERABLES [facility] [address] [place] [address] documented in this encounter Visit Diagnoses Not on filedocumented in this encounter
--- OUTSIDE RECORDS SUMMARY | 2024-01-07 11:16 | XMS_ITS | Encounter Summary ---
Author Organization [facility] [place] [address] Care Team Providers Care Commissioning Specialist Name Role Phone Franny Davison MD Primary Care Provider [phone] Reason for Visit * Reason Onset Date Comments Medication Refill 03/25/2016 Encounter Details Date Type Department Care Team (Late st Contact Info) Description 03/25/2016 Refill [place] [address] Luna Galvez MD [facility] [place] [address] Social History Tobacco Use Types Packs/Day Years [...] on filedocumented in this encounter Care Teams Commissioning Specialist Relationship Specialty Start Date End Date Franny Davison MD [address] [place] [address] PCP - General 05/13/10 04/14/18 documented as of this encounter
--- OUTSIDE RECORDS SUMMARY | 2024-01-07 11:16 | XMS_ITS | Encounter Summary ---
[place] [address] Care Team Providers Care Proofing Machine Operator Name Role Phone Franny Davison MD Primary Care Provider Encounter Details Date Type Department Care Team (Late st Contact Info) Description 05/08/2010 [place] [address] Ed Willard MD [address] [place] [address] [place] [address] Social History Tobacco Use Types Packs/Day Years [...] EST documented in this encounter Results * PATHOLOGY SURGICAL PATHOLOGY FINAL REPORT (05/08/2010 6:17 PM EST) Surgical Pathology Report ? [facility] ? Provider: ?? ED WILLARD ?? Pt. Name: ?? JOANNA HART ? Acc #: ?[id number] ? Pt. ? Col Date: ?? 05/08/2010 ?/Sex: ?1950,(59 years),Female ? Rec Date: ?? 05/09/2010 ?LOC: ?[facility] ? SURGICAL PATHOLOGY ? ---Pathologic Diagnosis--- ? 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 peripheral specimen edge (see Comment). ? CR-0 ? 05/13/10 ? SY ? 05/13/10 Verified by: ? Stefan HAY, PhD, Leonie ? Dermatopathologist ? (Electronic Signature) ? The attending pathologist whose signature appears on this report has ? reviewed all diagnostic slides and has edited the gross and/or ? microscopic portion of the report in rendering the final pathologic ? diagnosis. ? ---Comment--- ? Multiple deeper levels have been examined. The lesion is predominantly ? intraepidermal lentiginous and nested melanocytic proliferation with rare ? dermal nests. The findings are consistent with a severely atypical nevus. ? It abutts the peripheral specimen edge, complete excision is recommended. ? Drs. Arteaga, Henrique and Erick have reviewed this case and concur with this ? diagnosis. ? ---Microscopic Description--- ? Slides reviewed, microscopic description not recorded. ? ---Gross Description--- ? Labeled/Fixative: ? Distal dorsal R foot, formalin. ? Qty/Size/Weight: ?Single punch, 0.5 cm, excised to a depth of 0.15 cm. ? Bro skin with an eccentric, 0.35 x 0.25-cm, dark ? brown macule with an eccentric, 0.2 x 0.15-cm, brown ? macule. ? Sections/Processing: ??Bisected. ??(T1) ??aje/CJL ? ---Clinical Information--- ? Specimen Submitted: ? A - Distal dorsal (R) foot, near base of 3rd toe, punch ? Clinical History: ? New atypical mole ? [facility] ? Provider: ?? ED WILLARD ?? Pt. Name: ?? JOANNA HART ? Acc #: ?[id number] ? Pt. ? Col Date: ?? 05/08/2010 ?/Sex: ?1950,(59 years),Female ? Rec Date: ?? 05/09/2010 ?LOC: ?[facility] ? SURGICAL PATHOLOGY ? Clinical Diagnosis: ? Atypical nevus ? Report to: ? _ ? Ed Willard MD, III ? [facility] ? Dermatology ? . [place], [place] ??[address] [facility] 05/08/2010 6:17 PM EST Ed Willard MD PATHOLOGY/CYTOLOGY [facility] documented in this encounter Visit Diagnoses Not on filedocumented in this encounter Care Teams Proofing Machine Operator Relationship Specialty Start Date End Date Franny Davison MD [address] [place] [address] PCP - General 05/13/10 04/14/18 documented as of this encounter
--- OUTSIDE RECORDS SUMMARY | 2024-01-07 11:16 | XMS_ITS | Encounter Summary ---
Author Organization [facility] Address [facility] [place] [address] Care Team Providers Care Assembly Machine Offbearer Name Role Phone Franny Davison MD Primary Care Provider [phone] Reason for Visit * Reason Comments Diabetes * Consultation (Routine) - Closed Specialty Diagnoses / Procedures Referred By Contac t Referred To Contact Endocrinology Diagnoses diabetes type 2 requiring insulin - poorly controlled Franny Davison MD [address] [place] [address] [facility] Endocrinology [address] [place] [phone] Referral ID Status Reason Start Date Expiration Date V isits Requested Visits Authorized [id number] Closed [facility] 01/09/2016 01/08/2017 1 1 Encounter Details Date Type Department Care Team (Late st Contact Info) Description 02/18/2016 3:30 PM EDT Office [place] [address] Vidhya Schilling MD [facility] [place] [address] Luna Galvez MD [facility] [place] [address] Diabetes mellitus without complication Social History Tobacco [...] Sign Reading Time Taken Comments Blood Pressure 173/97 02/18/2016 3:21 PM EDT Pulse 74 02/18/2016 3:21 PM EDT Temperature - - Respiratory Rate - - Oxygen Saturation - - Inhaled Oxygen Concentration - - Weight 78.2 kg (172 lb 6.4 oz) 02/18/2016 3:21 P M EDT Height 162.6 cm (5' 4) 02/18/2016 3:21 PM EDT Body Mass Index 29.59 02/18/2016 3:21 PM EDT documented in this encounter Patient Instructions * Patient Instructions* Luna Galvez MD - 02/18/2016 3:30 PM EDT Insulin Discharge Instructions You have a follow-up appointment in Endocrine Clinic Section (5C) with us in 3 months. Please take your meter, glucose and insulin log with you to the appointment. Stop novolog for carbs. Use sliding scale we provided before meals and for bedtime for correction of high BG > 150 Reduce levemir from 68 units to 50 units daily Start Victoza 0.6 mg injection daily for 1 week, then increase to 1.2 mg injection daily after 1 week and then increase to 1.8 mg daily injection Start glipizide 10 mg once daily long acting Instructions for Levemir Insulin (LONG ACTING) 1. Inject Levemir 50 units insulin every morning. Check blood glucose (BG) before breakfast 3. If the blood glucose before breakfast is over 150 for two days in a row, add TWO units of insulin to the next Levemir dose. This increased dose becomes your new dose, continue to increase as needed. 4. If the blood glucose before breakfast is under 90 for two days in a row, subtract TWO units of insulin from the next Levemir dose. This lower dose becomes your new dose, continue to decrease as needed. Instructions for Mealtime Novolog (or Humalog) Insulin [...] day to have your insulin doses adjusted. [facility] Endocrine clinic office documented in this encounter Progress Notes * Luna Galvez MD - 02/18/2016 3:30 PM EDT Diabetes Outpatient Consult Date of Consultation: 02/18/2016 Consult Requested by: Dr. Davison Reason for Consultation: Joanna Hart is a 65 y.o. years old female with PMH significant for DMT2 . We are being consulted to assist with diabetes management and to provide a review of alf diabetes care. Diabetes History: Joanna Hart has had diabetes Type 2, diagnosed 4 years, on routine testing during physical BG- 800. Initially on metformin, still taking but only on low dose metformin 500 mg BID. Tolerated well withminimal diarrhea. Her PCP added levemir and novolog 4 months ago. Never tried other orals 12/2015 A1C 9.5 Cr- 1.1 EGFR- 45 Previous to this in 08/2015 her A1C was 8.2 Current outpatient diabetes regimen: Medications: levemir 68 u qhs Metformin 500 mg BID novolog 1 unit : for every 5g And sliding scale for correction of BG> 120 , 1 unit for every 10 mg/dl Monitoring is done 3-4 times a day Fasting 100-212 Before meals 89-241 Bedtime 112-141 Most recent HA1c was done on 12/2015 and was 9.5% Typical diet is: 3 meals and 1-2 snacks a day Typical exercise regimen is limited Trouble with hypoglycemia 1 month ago two BG of 58 during driving, had to heat treat puller Diabetes Complications Status: Eyes: None had eye [...] infections Neurological: No weakness or numbness PMH No past medical history on file. Allergy: Allergies Allergen Reactions ??? Contrast [Iodine And Iodide Containing Products] ??? Darvocet A500 [Propoxyphene N-Acetaminophen] ??? Percocet [Oxycodone-Acetaminophen] Social history: Social History Substance Use Topics ??? Smoking status: Never Smoker ??? Smokeless tobacco: Not on file ??? Alcohol use Not on file Family history: Sister and brother- type 2 DM Negative autoimmune conditions Vitals Vitals: 02/18/16 1521 BP: (!) 173/97 Pulse: 74 NAD, pleasant no goiter, no acanthosis nigricans, no supraclavicular fat pads S1S2+ Lungs CTAB Abd soft no violaceous straie Fine touch and vibration sense B/L feet intact Labs: 12/2015 A1C 9.5 Cr- 1.1 EGFR- 45 Assessment: Patient is a 65 y.o. years old female with PMH significant for DM (Last A1C of 9.5) who presents for diabetes management. Diabetes suboptimally controlled and complicated by insulin resistance. Joanna has DMT2 complicated by CKD EGRF- 45. We will attempt to reduce insulin resistance by uptitrating metformin and addition of victoza. We will add glipizide 10 mg XR to reduce her levemir requirements and stop novolog for carbs, instead she will use custom sliding scale based on ISF 1:20 TID AC and HS for correction high BG > 150. Asked to wean off levemir and novolog if her BG gets low. Rx sent and demonstration video given along with coupon for free humalog pen Plan: 1. Levemir 50 units qd 2. Humalog custom sliding scale for BG>150 3. Stop Meal-associated Novolog 4. Add Glipizide 10 mg XR daily 5. Increase metformin to 750 mg XR BID 6. F/u appt in 3 months with A1C Insulin Discharge Instructions You have a follow-up appointment in Endocrine Clinic Section (5C) with us in 3 months. Please take your meter, glucose and insulin log with you to the appointment. Stop novolog for carbs. Use sliding scale we provided before meals and for bedtime for correction of high BG > 150 Reduce levemir from 68 units to 50 units daily Start Victoza 0.6 mg injection daily for 1 week, then increase to 1.2 mg injection daily after 1 week and then increase to 1.8 mg daily injection Start glipizide 10 mg once daily long acting Instructions for Levemir Insulin (LONG ACTING) 1. Inject Levemir 50 units insulin every morning. Check blood glucose (BG) before breakfast 3. If the blood glucose before breakfast is over 150 for two days in a row, add TWO units of insulin to the next Levemir dose. This increased dose becomes your new dose, continue to increase as needed. 4. If the blood glucose before breakfast is under 90 for two days in a row, subtract TWO units of insulin from the next Levemir dose. This lower dose becomes your new dose, continue to decrease as needed. Instructions for Mealtime Novolog (or Humalog) Insulin [...] day to have your insulin doses adjusted. [facility] Endocrine clinic office care home diabetes care: Medications - Outpatient treatment regimen recommendations pending based on the hospital course. Monitoring - continue BG tid ac & hs Diet - low fat/low carb diet Exercise - weight-bearing exercise 30 min/day, as tolerated Thank you for the consult D/w Dr Tonie Galvez MD Endocrine Fellow Pager- [phone] * Vidhya Schilling MD - 02/18/2016 3:30 PM EDT I have seen the patient and reviewed Dr. Galvez's above history and I agree with the details as written. The assessment and plan were formulated in discussion with me and I agree with them as documented. Since she was diagnosed with T2DM for 4 yrs and still making endogenous insulin after she was out of glucotoxicity, we will transition off insulin for meals to basal insulin plus pills. She likes to lose wt down so victoza pen is preferable in combination with glipizideER 10 mg qd and moderatedose of [id number] mg bid. She can stop meal-associated novolog 10u tid and reduce levemir fro 68 to 40-50u qd and allow to titrate down if BG<90(or by 50% if low BG <80). Ok to use slidingscale (1u:20 BG) tid &hs p.r.n. A coupon for Humalog kwikpen 1 box of 5 pens free was given today. Thanks for the consult. Vidhya Schilling MD, PhD, FACP, FACE documented in this encounter Plan of Treatment Not on file documented as of this encounter Visit Diagnoses Diagnosis Diabetes mellitus without complication Type II or unspecified type diabetes mellitus without mention of complication, not stated as uncontrolled documented in this encounter Care Teams Assembly Machine Offbearer Relationship Specialty Start Date End Date Franny Davison MD [address] [place] [address] PCP - General 05/13/10 04/14/18 documented as of this encounter
--- OUTSIDE RECORDS SUMMARY | 2024-01-07 11:16 | XMS_ITS | Encounter Summary ---
Author Organization [facility] [place] [address] Care Team Providers Care Senior Project Manager Name Role Phone Franny Davison MD Primary Care Provider [phone] Reason for Visit * Reason Comments Skin Lesion Encounter Details Date Type Department Care Team (Late st Contact Info) Description 03/12/2015 4:00 PM EDT Office Visit Dermatology at [address] [address] Ed Geller MD [address] [facility] DERMATOLOGY [place], [place] [id number] [place] (actinic keratosis) Discharge Disposition: Home Social History Tobacco Use [...] Progress Notes * Ed Geller MD - 03/12/2015 4:40 PM EDT Problems: 1. Actinic check. 2. Status post two-week course of 5-FU completed March 2011. 3. History of multiple allergies. 4. History of rosacea; she is on Elidel. 5. History of type 2 diabetes, on metformin. Joanna follows up and has been noting some new actinics. I last saw her in 2011. Physical examination reveals actinic damage across her forehead, cheeks, and upper lip. Assessment and Plan: Actinic keratoses. a. LN2 times two was applied to sites but tolerated poorly. LN2 times two was applied to each of five actinics on her face. b. I decided instead that she will begin a course of Efudex cream, which she has used before, 5-FU 5% cream, applying this time on a b.i.d. basis two days a week only, e.g., Mondays and , for eight weeks, then discontinue; 30 grams dispensed with zero refills. c. Thirty minutes after each 5-FU application, apply triamcinolone 0.1% cream, applying this b.i.d. two days a week, e.g., Mondays and , following the 5-FU; 30 grams dispensed with one refill. d. Return to clinic in eight weeks for repeat check. COPY: Franny Davison M.D. documented in this encounter Plan of Treatment Not on file documented as of this encounter Visit Diagnoses Diagnosis AK (actinic keratosis) Actinic keratosis documented in this encounter Care Teams Senior Project Manager Relationship Specialty Start Date End Date Franny Davison MD [address] [place] [address] PCP - General 05/13/10 04/14/18 documented as of this encounter
--- OUTSIDE RECORDS SUMMARY | 2024-01-07 11:16 | XMS_ITS | Encounter Summary ---
Author Organization [facility] Address [address] [place] [address] Care Team Providers Care Compliance Investigator Name Role Phone Bryant Crain MD Primary Care Provider [phone] Encounter Details Date Type Department Care Team (Late st Contact Info) Description 11/09/[address] [facility] - Main [place] [address] [place] [id number] Hayde Paul MD [address] [place] [address] [place] [phone] Social History Tobacco Use Types Packs/Day Years Used Date Smoking Tobacco: Never Assessed Sex and Gender Information Value Date Recorded Sex Assigned at Not on file Gender Identity Female 06/01/2019 10:00 EST Sexual Orientation Not on file documented as of this encounter Plan of Treatment Upcoming Encounters Date Type Department Care Team (Late st Contact Info) Description 03/08/2024 9:30 EDT Ancillary Procedure [facility] Cardiology [place] [address] 03/08/2024 10:15 EDT Ancillary Procedure [facility] Cardiology [place] [address] 04/05/2024 10:[address] [facility] Cardiology Clinic [address] [place] [address] 04/05/2024 10:00 EDT Office Visit [facility] Cardiology Clinic [address] [place] [address] Carlos aH NP [address] [facility] [address] [place] [phone] documented as of this encounter Procedures Procedure Name Priority Date/Time Associated Diagnosis Comments POCT GLUCOSE, INTERFACED Routine 11/09/2017 13:07 EDT documented in this encounter Results * POCT GLUCOSE (11/09/2017 13:07 EDT) Glucose, POC 81 70 - 100 mg/dL 11/10/2017 6:14 EDT [facility] 11/09/2017 13:0 7 EDT 11/10/2017 6:14 EDT Hayde Paul MD POINT OF CARE T EST ORDERABLES [facility] documented in this encounter Visit Diagnoses Not on filedocumented in this encounter Care Teams Compliance Investigator Relationship Specialty Start Date End Date Bryant Crain MD [address] [place], [place] [id number] PCP - General 05/04/15 05/17/23 documented as of this encounter
--- OUTSIDE RECORDS SUMMARY | 2024-01-07 11:16 | XMS_ITS | Encounter Summary ---
Author Organization [facility] Address [facility] [place] [address] Care Team Providers Care Terrazzo Finisher Helper Name Role Phone Franny Davison MD Primary Care Provider [phone] Reason for Visit * Reason Onset Date Comments Medication Refill 02/20/2016 Encounter Details Date Type Department Care Team (Late st Contact Info) Description 02/20/2016 [place] [address] [facility] [place] [address] Diabetes mellitus without complication Social History Tobacco [...] Telephone Encounter - Queta Arcos LPN - 02/20/2016 2:17 PM EDT New Rx needed with correct dispensing quantity. documented in this encounter Plan of Treatment Not on file documented as of this encounter Visit Diagnoses Diagnosis Diabetes mellitus without complication Type II or unspecified type diabetes mellitus without mention of complication, not stated as uncontrolled documented in this encounter Care Teams Terrazzo Finisher Helper Relationship Specialty Start Date End Date Franny Davison MD [address] [place] [address] PCP - General 05/13/10 04/14/18 documented as of this encounter
--- OUTSIDE RECORDS SUMMARY | 2024-01-07 11:16 | XMS_ITS | Encounter Summary ---
Author Organization [facility] [place] [address] Care Team Providers Care Registered Sales Assistant Name Role Phone Franny Davison MD Primary Care Provider [phone] Reason for Visit * Reason Comments Skin Check Encounter Details Date Type Department Care Team (Late st Contact Info) Description 10/26/2011 8:45 AM EDT Office Visit Dermatology [address] [place] [address] [address] [place] [address] Ed Geller MD [address] [facility] [place] [address] Actinic keratosis (Primary Dx) Social History Tobacco [...] Progress Notes * Ed Geller MD - 10/26/2011 9:05 AM EDT Problem: 1. Followup actinic check. 2. Status post two-week course of 5FU completed March 2011. 3. History of multiple allergies. 4. History of rosacea previously on Elidel. 5. History of type 2 diabetes on metformin. Joanna follows up and has been doing wonderfully. She is not aware of any new lesions of concern. Physical examination reveals wonderful response of the diffuse actinic damage treated with Efudex six months ago. I see actually today no active actinic keratoses. Careful examination of the head and the neck, the chest, the back, hands, arms, and forearms is benign. Assessment and Plan: Followup actinic damage. a. Today no evidence of actinic keratoses. b. The patient reassured about benign examination. c. Would recommend that we go to a more infrequent followup scheduling namely in one year again and then p.r.n. thereafter. Copy: Franny Davison M.D. documented in this encounter Plan of Treatment Not on file documented as of this encounter Visit Diagnoses Diagnosis Actinic keratosis- Primary documented in this encounter Care Teams Registered Sales Assistant Relationship Specialty Start Date End Date Franny Davison MD [address] [place] [address] PCP - General 05/13/10 04/14/18 documented as of this encounter
--- OUTSIDE RECORDS SUMMARY | 2024-01-07 11:16 | XMS_ITS | Encounter Summary ---
Author [place] [address] Care Team Providers Care Skilled Labor Name Role Phone Franny Davison MD Primary Care Provider [phone] Reason for Visit * Reason Onset Date Comments Medication Refill 03/26/2017 Encounter Details Date Type Department Care Team (Late st Contact Info) Description 03/26/2017 [place] [address] Erin Chery MA Social History Tobacco Use Types Packs/Day Years [...] on filedocumented in this encounter Care Teams Skilled Labor Relationship Specialty Start Date End Date Franny Davison MD [address] [place] [address] PCP - General 05/13/10 04/14/18 documented as of this encounter
--- OUTSIDE RECORDS SUMMARY | 2024-01-07 11:16 | XMS_ITS | Encounter Summary ---
[place] [address] Care Team Providers Care Product Lister Name Role Phone Bryant Crain MD Primary Care Provider [phone] Reason for Visit * Diagnostic Test (Routine) - Closed Specialty Diagnoses / Procedures Referred By Charo daniel Referred To Contact Radiology Diagnoses Parkinson's disease Procedures [place] Brain Imaging for Parkinsons Disease Zandra Paredes MD [facility] [address] [place] [address] [place] [address] Referral ID Status Reason Start Date Expiration Date V isits Requested Visits Authorized [id number] Closed Specialty Service Requested 08/07/2021 02/04/2023 1 1 Encounter Details Date Type Department Care Team (Late st Contact Info) Description 10/21/2021 8:52 AM EDT - 10/21/2021 12:58 PM EDT Hospital Encounter [place] [address] Zandra Paredes MD [facility] [address] [place], [place] [id number] Discharge Disposition: Home Social History Tobacco Use [...] UF MINI) 31 gauge x 3/16 NeedleIndications:Hermelinda au mellitus without complication Inject victoza 1.8 mg [...] EDT Parkinson's disease documented in this encounter Visit Diagnoses Not on filedocumented in this encounter Administered Medications Inactive Administered Medications - up to 3 most recent administrations Medication Order MAR Action Action Date Dose Rate Site ioflupane (I-123) (DATSCAN) injection 0-6 mCi 0-6 mCi, Intravenous, ONCE PRN, 1 dose, Starting on Wed10/21/21 at 1041, Until Wed10/21/21 at 1000, Per Protocol, Radiology Contrast, Routine Given 10/21/2021 10:00 AM EDT 5 mCi Right Arm documented in this encounter Care Teams Product Lister Relationship Specialty Start Date End Date Bryant Crain MD [address] [place] [address] PCP - General Internal Medicine 04/15/18 documented as of this encounter
--- OUTSIDE RECORDS SUMMARY | 2024-01-07 11:16 | XMS_ITS | Encounter Summary ---
[place] [address] Care Team Providers Care Distillery Laborer Name Role Phone Bryant Crain MD Primary Care Provider Reason for Referral * Diagnostic Test (Routine) - Closed Specialty Diagnoses / Procedures Referred By Contac t Referred To Contact Radiology Diagnoses Parkinson's disease Procedures NM Brain Imaging for Parkinsons Disease Zandra Paredes MD [facility] [address] [place] [address] [place] [address] Referral ID Status Reason Start Date Expiration Date V isits Requested Visits Authorized [id number] Closed Specialty Service Requested 08/07/2021 02/04/2023 1 1 Reason for Visit * Diagnostic Test (Routine) - Closed Specialty Diagnoses / Procedures Referred By Contac t Referred To Contact Radiology Diagnoses Parkinson's disease Procedures NM Brain Imaging for Parkinsons Disease Zandra Paredes MD [facility] [address] [place] [address] [place] [address] Referral ID Status Reason Start Date Expiration Date V isits Requested Visits Authorized [id number] Closed Specialty Service Requested 08/07/2021 02/04/2023 1 1 Encounter Details Date Type Department Care Team (Late st Contact Info) Description 10/21/2021 8:50 AM EDT - 10/21/2021 8:51 AM EDT Hospital Encounter [place] [address] Zandra Paredes MD [facility] [address] [address] Parkinson's disease Discharge Disposition: Home Social History Tobacco Use [...] 3 01/12/2017 UNIFINE PENTIPS 32 gauge x Needle Inject 1 each subcutaneously 2 times daily. 02/05/2016 candesartan (ATACAND) 32 mg Tablet Take 32 mg by mouth daily. 02/15/2016 ONETOUCH ULTRA TEST Strip 1 each by Other route 4 times daily. 09/25/2015 insulin needles, disposable, (BD INSULIN PEN NEEDLE UF MINI) 31 gauge x 16 NeedleIndications:Hermelinda betes mellitus without complication Inject victoza [...] who have questions please contact the health child care specialist that requested your imaging first. ? Electronically signed by: Oneal Barroso MD, [facility] ([phone]), at 10/22/2021 3:27 PM Narrative 10/22/2021 3:27 PM EDT EXAMINATION: NM [...] patients who have questions please contactthe health child care specialist that requested your imaging first. Electronically signed by: Oneal Barroso MD, [facility]([phone]), at 10/22/2021 3:27 PM Zandra Paredes MD IMG NM ORDERABLES documented in this encounter Visit Diagnoses Diagnosis Parkinson's disease Paralysis agitans documented in this encounter Administered Medications Inactive Administered Medications - up to 3 most recent administrations Medication Order MAR Action Action Date Dose Rate Site strong iodine (Lugols) 5% oral liquid 0.8 mL 0.8 mL, Oral, ONCE, 1 dose, On Wed10/21/21 at 0945, Radiology Contrast, Routine Given 10/21/2021 9:15 AM EDT 0.8 mLs documented in this encounter Care Teams Distillery Laborer Relationship Specialty Start Date End Date Bryant Crain MD [address] [place] [address] PCP - General Internal Medicine 04/15/18 documented as of this encounter
--- OUTSIDE RECORDS SUMMARY | 2024-01-07 11:16 | XMS_ITS | Encounter Summary ---
[place] [address] Care Team Providers Care Trucker Hand Name Role Phone Franny Davison MD Primary Care Provider [phone] Reason for Referral * Diagnostic Test (Routine) - Closed Specialty Diagnoses / Procedures Referred By Contac t Referred To Contact Radiology Diagnoses Cerebrovascular accident (CVA), unspecified mechanism Procedures MRI Cardiac Morph Func wwo Contrast Justin Squires MD [address] [place] [address] [place] [address] Referral ID Status Reason Start Date Expiration Date V isits Requested Visits Authorized [id number] Closed Specialty Service Requested 05/20/2017 05/20/2018 1 1 Reason for Visit * Diagnostic Test (Routine) - Closed Specialty Diagnoses / Procedures Referred By Contac t Referred To Contact Radiology Diagnoses Cerebrovascular accident (CVA), unspecified mechanism Procedures MRI Cardiac Morph Func wwo Contrast Justin Squires MD [address] [place] [address] [place] [address] Referral ID Status Reason Start Date Expiration Date V isits Requested Visits Authorized [id number] Closed Specialty Service Requested 05/20/2017 05/20/2018 1 1 Encounter Details Date Type Department Care Team (Late st Contact Info) Description 05/27/2017 8:28 AM EST - 05/27/2017 11:59 PM EST [facility] [place] [address] Justin Squires MD [address] [place] [id number] Cerebrovascular accident (CVA), unspecified mechanism Discharge Disposition: Home Social History Tobacco Use [...] Sig Dispensed Refills Start Date End Date metFORMIN (GLUCOPHAGE-XR) 750 mg Tablet Sustained Release [...] NEEDLE UF MINI) 31 gauge x 3/16 NeedleIndications:Di abetes mellitus without complication Inject victoza 1.8 mg daily 100 each 3 02/18/2016 cetirizine (ZYRTEC) 10 mg tablet Take 10 mg by mouth daily. aspirin 81 mg EC tablet Take 81 mg by mouth daily. dulaglutide 1.5 mg/0.5 mL Pen InjectorIndications: Type 2 diabetes mellitus without complication, without long-term current use of insulin Inject 1.5 mg subcutaneously once a week. 6 mL 3 07/09/2016 04/17/2019 documented as of this encounter Plan of Treatment Not on file documented as of this encounter Procedures Procedure Name Priority Date/Time Associated Diagnosis Comments MRI CARDIAC MORPHOLOGY FUNCTION WWO CONTRAST Routine 05/27/2017 10:28 AM EST Cerebrovascular accident (CVA), unspecified mechanism documented in this encounter Results * MRI Cardiac Morph Func wwo Contrast (05/27/2017 10:28 AM EST) Anatomical Region Laterality Modality Magnetic Resonan ce Impressions 05/27/2017 5:11 PM EST Concentric left ventricular myocardial hypertrophy, with LV mass index 106.1 g/m^2 and, extensive patchy myocardial delayed enhancement, as above. This could reflect atypical-pattern of amyloid versus other infiltrative/depositional disorder. Narrative 05/27/2017 5:11 PM EST EXAMINATION: MR cardiac for morphology and function without contrast CLINICAL HISTORY: R/O infiltrate COMPARISON: None. TECHNIQUE: Short and long axis cine steady-state free precession without contrast. ?? Short and long axis rest perfusion followed by short and long axis delayed enhancement after intravenous administration of 8 cc of Gadavist. ?? Post-processing performed on an independent computer workstation. FINDINGS: Artifacts Magnetic susceptibility:No magnetic susceptibility artifacts. Breath-holding:No significant respiratory motion artifacts. Ectopy/arrhythmia:No significant cardiac motion artifacts. Aliasing:No wrap-around artifacts. Other: Variable flow artifact in the aorta on cine imaging. Chambers Left ventricle: Concentric left ventricular myocardial hypertrophy, with nondilated chamber. Other chambers: Question mild thickening of the mid to basal free wall of the right ventricle. Myocardium Non-contrast series: No abnormal myocardial signal on non-contrast imaging. Post-contrast series: Extensive patchy subendocardial to mid myocardial mild delayed enhancement, with a somewhat striated appearance, greatest from the apices to the major chamber, and by the posterior basal lateral wall. Wall motion abnormalities: No global or segmental wall motion abnormalities. Valves:No valvulopathy identified. No spin dephasing in the left ventricular outflow tract or systolic anterior motion of the anterior mitral valve leaflet. Pericardium: Trace pericardial fluid. Aorta: Normal contour and caliber. Other thoracic great vessels: Normal contour and caliber. Non-cardiovascular structures: 16 mm smooth, round, homogeneously T2 hyperintense, nonenhancing lesion consistent with a cyst. QUANTITATIVE DATA: Body surface area: 1.85 m^2 LEFT VENTRICLE: LV Mass: 196.3 g LV mass index: 106.1 g/m^2 LV End-Diastolic Volume: 139.1 mL LV End-Systolic Volume: 63.9 mL Stroke Volume: 75.3 mL LV Ejection Fraction: 54.1% Cardiac Output: 5.4 L/min Short axis view measurements (mid chamber): Anteroseptal Wall Thickness: 16.5 mm Posterolateral Wall Thickness: 10.3 mm End-Diastolic Dimension: 4.93 cm End-Systolic Dimension: 3.5 cm Three-chamber view measurements (basal): Anteroseptal Wall Thickness: 20.0 mm Posterolateral Wall Thickness: 10.9 mm End-Diastolic Dimension: 4.2 cm RIGHT VENTRICLE: RV End-Diastolic Volume: 108.2 mL RV End-Systolic Volume: 34.2 mL RV Stroke Volume: 74.0 mL RV Ejection Fraction: 68.4% Procedure Note Otilia Treivño MD - 05/27/2017 EXAMINATION: MR cardiac for morphology and function without contrast CLINICAL HISTORY: R/O infiltrate COMPARISON: None. TECHNIQUE: Short and long axis cine steady-state free precession without contrast. Short and long axis rest perfusion followed by short and long axisdelayed enhancement after intravenous administration of 8 cc of Gadavist. Post-processing performed on an independent computer workstation. FINDINGS: Artifacts Magnetic susceptibility:No magnetic susceptibility artifacts. Breath-holding:No significant respiratory motion artifacts. Ectopy/arrhythmia:No significant cardiac motion artifacts. Aliasing:No wrap-around artifacts. Other: Variable flow artifact in the aorta on cine imaging. Chambers Left ventricle: Concentric left ventricular myocardial hypertrophy, with nondilated chamber. Other chambers: Question mild thickening of the mid to basal free wall ofthe right ventricle. Myocardium Non-contrast series: No abnormal myocardial signal on non-contrastimaging. Post-contrast series: Extensive patchy subendocardial to mid myocardialmild delayed enhancement, with a somewhat striated appearance, greatest fromthe apices to the major chamber, and by the posterior basal lateral wall. Wall motion abnormalities: No global or segmental wall motionabnormalities. Valves:No valvulopathy identified. No spin dephasing in the leftventricular outflow tract or systolic anterior motion of the anterior mitral valveleaflet. Pericardium: Trace pericardial fluid. Aorta: Normal contour and caliber. Other thoracic great vessels: Normal contour and caliber. Non-cardiovascular structures: 16 mm smooth, round, homogeneously T2 hyperintense, nonenhancing lesion consistent with a cyst. QUANTITATIVE DATA: Body surface area: 1.85 m^2 LEFT VENTRICLE: LV Mass: 196.3 g LV mass index: 106.1 g/m^2 LV End-Diastolic Volume: 139.1 mL LV End-Systolic Volume: 63.9 mL Stroke Volume: 75.3 mL LV Ejection Fraction: 54.1% Cardiac Output: 5.4 L/min Short axis view measurements (mid chamber): Anteroseptal Wall Thickness: 16.5 mm Posterolateral Wall Thickness: 10.3 mm End-Diastolic Dimension: 4.93 cm End-Systolic Dimension: 3.5 cm Three-chamber view measurements (basal): Anteroseptal Wall Thickness: 20.0 mm Posterolateral Wall Thickness: 10.9 mm End-Diastolic Dimension: 4.2 cm RIGHT VENTRICLE: RV End-Diastolic Volume: 108.2 mL RV End-Systolic Volume: 34.2 mL RV Stroke Volume: 74.0 mL RV Ejection Fraction: 68.4% IMPRESSION Concentric left ventricular myocardial hypertrophy, with LV mass index 106.1 g/m^2 and, extensive patchy myocardial delayed enhancement,as above. This could reflect atypical-pattern of amyloid versus other infiltrative/depositional disorder. Justin Squires MD IMG MRI ORDERABLES documented in this encounter Visit Diagnoses Diagnosis Cerebrovascular accident (CVA), unspecified mechanism documented in this encounter Administered Medications Inactive Administered Medications - up to 3 most recent administrations Medication Order MAR Action Action Date Dose Rate Site gadobutrol (GADAVIST) 1 mMol/mL injection 8 mL 8 mL, Intravenous, ONCE PRN, 1 dose, Starting on Tash 05/27/17 at 1039, Until Tash 05/27/17 at 1000, Per Protocol, Routine Given 05/27/2017 10:00 AM EST 8 mLs documented in this encounter Care Teams Trucker Hand Relationship Specialty Start Date End Date Franny Davison MD [address] [place] [address] PCP - General 05/13/10 04/14/18 documented as of this encounter
--- OUTSIDE RECORDS SUMMARY | 2024-01-07 11:16 | XMS_ITS | Encounter Summary ---
Author Organization [facility] [place] [address] Care Team Providers Care Documentation Engineer Name Role Phone Bryant Crain MD Primary Care Provider Encounter Details Date Type Department Care Team (Late st Contact Info) Description 09/14/2022 External [place] [id number] Social History Tobacco Use Types Packs/Day Years [...] Date/Time Associated Diagnosis Comments ECG SCAN Routine 09/14/2022 documented in this encounter Results * Scan Doc: ECG (09/14/2022) Historical Provider MD ORTEGA MGR SCAN EX T ORDR/RSLT documented in this encounter Visit Diagnoses Not on filedocumented in this encounter Care Teams Documentation Engineer Relationship Specialty Start Date End Date Bryant Crain MD [address] [place] [address] PCP - General Internal Medicine 04/15/18 documented as of this encounter
[2024-01-07 11:18] VITALS: BP 144/69; PULSE 61
--- OUTSIDE RECORDS SUMMARY | 2024-01-12 11:17 | XMS_ITS | Continuity of Care Document ---
Author Organization [facility] Address [address] [place] [address] Care Team Providers Care Document Control Coordinator Name Role Phone [facility] OTHER ELBA JETT Primary Care Provider [phone] LEISA SEGOVIA OTHER Assessment No assessment recorded. Plan of Treatment Reminders Order Date Submit Date Provider Last Modified By Organization Details Last Modified Time Details Appointments Medical Nutritio n Therapy 90 2023 11:00A M Isatu Yo Not available Not available Not available Annual Chronic Care (65+) 40 2023 02:40P M Elba Jett Not available Not available Not available Lab hemoglob in A1C, fingerst ick 2023 024 [facility], [address] [place] [address], [address], 12/30/2023 10:34:51 CBC w/ auto diff 2023 024 [facility]), [address] [place] [address] [place], [address], 12/30/2023 11:02:48 BNP (B-type natriure tic peptide) , serum or plasma 2023 024 [facility] ([facility]), [address] [place] [address] [place], [address], 01/06/2024 08:37:02 troponin I, serum or plasma [id number] [facility] ([facility]), [address] [place], [address], 12/30/2023 11:24:47 Referral None recorded . Procedures None recorded . Surgeries None recorded . Imaging electroc ardiogra m 2023 [facility], [address] [place], [address], 12/30/2023 12:41:58 Medication Orders None recorded . Patient TargetsNo targets recorded. Patient Instructions Encounter Date Encounter Id Patient Instructions Last Modified By Organization Details Last Modified Time 12/30/2023 [id number] [facility] Not available 12/29 10:34:51 Reason for Referral Diabetic Nutrition Education Referral for Type II diabetes mellitus uncontrolled assist with new CGM Referring Physician: Elba Jett [facility], Encounter Date: 10/27/2023 Staff Therapist Referral for Typ e II diabetes mellitus uncontrolled once visit is complete please send us the visit notes Referring Physician: Family [facility], Encounter Date: 11/03/2023 Results Created Date Observation Date Name Description Value Unit Range Abnormal Flag LastModifiedBy Organization Detail LastModifiedTime 12/30/19 24 12/30/2023 hemog lobin A1C, finge rstic k hemoglobin A1C 7.9 % <5.7 Not Available [address], [address], 12/30/2023 09:18:44 12/30/19 24 12/30/2023 elect steph nelsongr am No observ ation record ed. [address], [address], 12/30/2023 12:41:49 12/31/19 24 12/31/2023 rhyth m strip , EKG* No observ ation record ed. [email or web address] Not Available 12/31/2023 13:33:00 Result Notes None recorded. Problems Name Status Onset Date Resolution Date Notes Provider Name and Address Organization Details Recorded Time Hyperlipidemi a Active 2005 on repatha, statin intolerant MD Regan MCGEE Dr, [place] [address] , [facility] 19:48:59 Rosacea Completed 200307/24/2023 Problem Code: L71.9; Problem Code Type: ICD-10; MD Regan MCGEE Dr, [address] 4 19:37:39 Essential hypertension Active [address], [address] 19:38:21 Type 2 diabetes mellitus without complication [...] Code Type: ICD-10; MD Regan MCGEE Dr, [facility] [address] , [facility] 15:19:41 Allergic rhinitis Completed 201407/24/2023 09/26/2018 Problem Code: J30.9; Problem Code Type: ICD-10; Sameera jarvis, [facility] 12:27:18 Mild intermittent asthma Completed 201507/24/2023 Problem Code: J45.20; Problem Code Type: ICD-10; MD Regan MCGEE Dr, [facility] [address] , [facility] 19:38:59 Acquired absence of cervix and uterus Completed 201507/24/2023 Problem Code: Z90.710; Problem Code Type: ICD-10; MD Regan MCGEE Dr, [facility] [address] , 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 4 19:19:03 Long-term current use of anticoagulant Active [address], [facility] [address] , [facility] 4 19:40:26 Muscle pain Completed 201706/25/2023 12/02/2017 - Comments only - Shannan Diaz [employer] - - Etiology not completely clear. Statin [...] Code Type: ICD-10; MD Regan MCGEE Dr, [place] [address] , [facility] 4 13:23:43 Disorder of skin and/or subcutaneous tissue Completed 201701/25/2018 Problem Code: L98.9; Problem Code Type: ICD-10; Not Available [facility] 3 04:19:16 Overflow incontinence of urine Completed 201807/24/2023 Problem Code: N39.490; Problem Code Type: ICD-10; MD Regan MCGEE Dr, [place] [address] , [facility] 4 19:37:43 Screening mammography Completed 201806/25/2023 Problem Code: Z12.31; Problem Code Type: ICD-10; MD Regan MCGEE Dr, [place] [address] , [facility] 4 19:42:41 Hypercalcemia Active [address], [address] 4 19:40:41 Urge incontinence of urine Completed 201807/24/2023 Problem Code: N39.41; Problem Code Type: ICD-10; MD Regan MCGEE Dr, [place] [address] , [facility] 4 19:40:30 History of recurrent pneumonia Completed 201802/14/2019 Problem Code: Z87.01; Problem Code Type: ICD-10; Not Available [facility] 3 04:19:17 Squamous cell carcinoma of skin of face Completed 201907/24/2023 11/29/2019 - Comments only - Franny Davison MD - she will be scheduled for surgery in the near future, recommending holding apixaban 3 days prior to procedure and then restarting, Problem Code: C44.320; Problem Code Type: ICD-10; MD Regan MCGEE Dr, [facility] [address] , [facility] 4 19:37:37 Major depression, single episode Completed 201907/24/2023 Problem Code: F32.9; Problem Code Type: ICD-10; MD Regan MCGEE Dr, [facility] [address] [place] [address] 4 19:37:48 Adjustment disorder with mixed anxiety and depressed mood Completed 201907/24/2023 Problem Code: F43.23; Problem Code Type: ICD-10; MD Regan MCGEE Dr, [address] 19:39:12 Neuropathy due to type 2 diabetes mellitus Active [address], [address] 19:48:19 Proteinuria Completed 202007/24/2023 Problem Code: R80.9; Problem Code Type: ICD-10; MD Regan MCGEE Dr, [facility] [address] [place] [address] 19:38:51 Hyperparathyr oidism Active [address], [facility] [address] [place] [address] 19:40:21 Vitamin B deficiency Active [address], [facility] [address] [place] [address] 19:38:27 Chest pain Completed 202107/24/2023 Problem Code: R07.89; Problem Code Type: ICD-10; MD Regan MCGEE Dr, [facility] [address] [place] [address] INC[employer] 4 09:51:51 Essential tremor Active 2021 Stable MD Regan MCGEE Dr, [address] 4 19:20:59 Abnormal involuntary movement Completed 202107/24/2023 Problem Code: R25.8; Problem Code Type: ICD-10; MD Regan MCGEE Dr, [address] 4 19:36:57 Screening for cancer Completed 202106/25/2023 Problem Code: Z12.10; Problem Code Type: ICD-10; MD Regan MCGEE Dr, [address] 4 13:23:13 Cough Completed 202106/13/2022 Problem Code: R05.8; Problem Code Type: ICD-10; Not Available [facility] 3 04:19:19 Anesthesia of skin Completed 202206/25/2023 Problem Code: R20.0; Problem Code Type: ICD-10; MD Regan MCGEE Dr, [address] 4 13:23:29 Ventricular tachycardia Completed 202207/24/2023 Problem Code: I47.20; Problem Code Type: ICD-10; MD Regan MCGEE Dr, [address] 4 19:37:02 Kidney stone Completed 202207/24/2023 Problem Code: N20.0; Problem Code Type: ICD-10; MD Regan MCGEE Dr, [address] 4 19:40:33 Syncope and collapse Completed 202207/24/2023 Problem Code: R55; Problem Code Type: ICD-10; MD Regan MCGEE Dr, [facility] [address] [place] [address] 19:38:44 History of disorder of digestive system Completed 202207/24/2023 Problem Code: Z87.19; Problem Code Type: ICD-10; MD Regan MCGEE Dr, [address] 19:40:17 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 MD Regan MCGEE Dr, [address] 19:47:04 Ulcer of duodenum Completed 202207/24/2023 Problem Code: K26.9; Problem Code Type: ICD-10; MD Regan MCGEE Dr, [facility] [address] [place] [address] 19:37:54 Hemorrhagic esophagitis Completed 202207/24/2023 Problem Code: K20.91; Problem Code Type: ICD-10; MD Regan MCGEE Dr, [facility] [address] , [facility] 19:38:17 Acute posthemorrhag ic anemia Completed 202207/24/2023 Problem Code: D62; Problem Code Type: ICD-10; MD Regan MCGEE Dr, [facility] [address] [place] [address] 19:37:07 Hypertrophic cardiomyopath y Active [address], [facility] [address] [place] [address] [facility] 4 19:58:46 Urinary tract infectious disease Completed 201805/08/2019 Problem Code: N39.0; Problem Code Type: ICD-10; Not Available [facility] 3 04:19:23 Right lower quadrant pain Completed 201810/23/2019 Problem Code: R10.31; Problem Code Type: ICD-10; Not Available [facility] 3 04:19:23 Screening for osteoporosis Completed 201705/07/2022 Problem Code: Z13.820; Problem Code Type: ICD-10; Not Available [facility] 3 04:19:23 Breast composition Completed 201404/14/2016 Not Available [facility] 3 04:19:24 Parkinson's disease Completed 202102/03/2022 Problem Code: G20; Problem Code Type: ICD-10; Not Available [facility] 3 04:19:24 Diarrhea Completed 201805/07/2022 Problem Code: R19.7; Problem Code Type: ICD-10; Not Available [facility] 3 04:19:24 Chorea Completed 202004/10/2021 Problem Code: G25.5; Problem Code Type: ICD-10; Not Available [facility] 3 04:19:24 Blood chemistry outside reference range Completed 201609/24/2022 Problem Code: R79.89; Problem Code Type: ICD-10; Not Available [facility] 3 04:19:24 Dyspnea Completed 201810/23/2019 Problem Code: R06.02; Problem Code Type: ICD-10; [place], [address] , [facility]. 4 19:42:49 Chest pain Completed 202004/10/2021 Problem Code: R07.89; Problem Code Type: ICD-10; [place], [address] , [facility]. 4 09:51:51 Bleeding from nose Completed 201606/29/2017 Problem Code: R04.0; Problem Code Type: ICD-10; Not Available [facility] 3 04:19:25 Hyperglycemia due to type 2 diabetes mellitus Completed 201504/14/2016 Problem Code: E11.65; Problem Code Type: ICD-10; Not Available [facility] 3 04:19:26 Upper respiratory tract infection caused by Influenza A Completed 202109/08/2022 Problem Code: J09.x2; Problem Code Type: ICD-10; Not Available [facility] 3 04:19:26 Hypertensive disorder Completed 200603/17/2023 Not Available [facility] 3 04:19:26 Type 2 diabetes mellitus Completed 200503/17/2023 Not Available [facility] 3 04:19:27 Adult health examination Completed 201605/19/2017 Problem Code: Z00.00; Problem Code Type: ICD-10; Not Available [facility] 3 04:19:27 Exposure to communicable disease Completed 202011/26/2020 Problem Code: Z20.9; Problem Code Type: ICD-10; Not Available [facility] 3 04:19:27 Bilateral earache Completed 201705/09/2018 Problem Code: H92.03; Problem Code Type: ICD-10; Not Available [facility] 3 04:19:27 Chest pain Completed 202111/03/2021 Problem Code: R07.9; Problem Code Type: ICD-10; ELBA JETT MD [address], [place], [address] [facility]. 4 09:51:51 Increased frequency of urination Completed 201502/03/2022 Problem Code: R35.0; Problem Code Type: ICD-10; Not Available [facility] 3 04:19:28 Acute urinary tract infection Completed 202206/25/[address], [address] 4 13:23:38 Muscle weakness Active 2022 TORY FERGUSON RN [facility], [facility] 3 12:36:18 Screening mammography Completed 201507/24/2023 Problem Code: Z12.31; Problem Code Type: ICD-10; MD Regan MCGEE Dr, [address] 4 19:42:41 Generalized skin eruption caused by drug and medicament Completed 202207/24/2023 Problem Code: L27.0; Problem Code Type: ICD-10; MD Regan MCGEE Dr, [address] 4 19:42:34 Candidiasis of vulva Completed 202207/24/[address], [address] 4 19:40:45 Automatic implantable cardiac defibrillator in situ Active 2022 [employer] Bi-V ICD. Placed 11/2022 at [facility] MD Regan MCGEE Dr, [address] 4 19:44:34 Dizziness and giddiness Active 2022 Problem Code: R42; Problem Code Type: ICD-10; MD Regan MCGEE Dr, [address] 19:42:51 Dyspnea Completed 202207/24/2023 Problem Code: R06.09; Problem Code Type: ICD-10; MD Regan MCGEE Dr, [facility] [address] [place] [address] 4 19:42:49 Red blood cell finding Completed 202207/24/2023 Problem Code: R71.8; Problem Code Type: ICD-10; MD Regan MCGEE Dr, [address] 4 19:42:46 Vulval and/or perineal noninflammato ry disorders Completed 202207/24/2023 Problem Code: N90.89; Problem Code Type: ICD-10; MD Regan MCGEE Dr, [address] 19:42:37 Dysuria Completed 202207/24/2023 Problem Code: R30.0; Problem Code Type: ICD-10; MD Regan MCGEE Dr, [address] 19:43:56 Atheroscleros is of coronary artery without angina pectoris Active 2022 s/p MADONNA to RCA MD Regan MCGEE Dr, [address] 19:43:[address] Paredes monitoring, concern for Parkinsism, Jay scan 11/09 negative. MD Regan MCGEE Dr, [facility] [address] [place] [address] 19:19:49 Daytime hypersomnia Active 2023 not interested in sleep study MD Regan MCGEE Dr, [facility] [address] 19:44:52 Gastrointesti nal hemorrhage Completed 202307/24/[address], [place], [address] , 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 S/p ICD implantation. MD Regan MCGEE Dr, [facility] [address] , [facility] 19:46:00 Paroxysmal atrial fibrillation Active [address], [place] [address] , [facility] 19:46:19 Heart failure with normal ejection fraction Active 2023 NYHA stage 3. Followed by [facility] cardiology, Carlos Ha NP, MD Regan [address] Dr, [facility] [address] , [facility] 19:53:02 Dilated cardiomyopath y Active [address], [facility] [address] , [facility] 19:46:57 Type II diabetes mellitus uncontrolled Active [address], [facility] [address] , [facility] 19:47:49 Type 2 diabetes mellitus without complication [...] Code Type: ICD-10; MD Regan MCGEE Dr, [facility] [address] , [facility] 4 15:19:41 Recurrent urinary tract infection Active 2023 Sameera Short null, [facility]. 4 12:36:35 Memory impairment Active 2023 Sameera Short null, [facility] 4 12:36:32 Hemiplegia and/or hemiparesis following stroke Active [address], [facility] [address] , [facility] 4 07:09:33 Actinic keratosis Active [address], [facility] [address] , [facility] 4 07:32:48 Tremor Active 2023 FILOMENA GREGG MA null, [facility] 4 10:14:28 Neuropathic pain Active 2023 FILOMENA GREGG MA null, [facility] 4 10:14:50 Cervical radiculopathy Active 2023 FILOMENA GREGG MA null, [facility] 4 10:15:16 Sciatica Active 2023 FILOMENA GREGG MA null, [facility] 4 10:15:27 Impairment of balance Active 2023 FILOMENA GREGG MA null, [facility] 4 10:16:14 Neuropathy Active [address], [facility] [address] , [facility] 4 11:01:37 Overweight Active [address], [facility] [address] , [facility] 4 09:42:35 Dyspnea on exertion Active [address], [facility] [address] [place] [address] 4 09:42:35 Chest pain Active 2023 Problem Code: R07.89; Problem Code Type: ICD-10; MD Regan MCGEE Dr, [facility] [address] , [facility] 4 09:51:51 Problem Notes None recorded. Procedures Surgical History Date Name Laterality Status Provider Name and Address Organization Details Recorded Time 12/09/19 23 endovascular insertion of drug eluting stent completed MD Regan MCGEE Dr, [facility] [address] 07/24/2023 19:50:55 01/20/20 13 Hysterectomy completed MD Regan MCGEE Dr, [facility] [address] [place] [address] 07/24/2023 19:39:58 Imaging Results Imaging Date Name Status LastModified by Organization Details LastModified Time 12/30/2023 electrocardiogram completed [address], [address], 12/30/2023 12:41:49 Procedure Notes None recorded. Medical Equipment None Reported. Allergies Allergen ID Allergen Name Allergen Category Reaction Reaction Severity Criticality Documentation Date Start Date Code Code System Note Provider Name and Address Organization Details Recorded Time 37777 Iodinated contrast media (substanc e) medicatio n Not available Not available Not available 04/30/20232002 95035 2004 SNOMED Aller gyNam e: 'IVP DYE'; Not Available [facility] 3 16:31:18 67796 Product containin g 3-hydroxy -3-methyl glutaryl- coenzyme A reductase inhibitor (product) medicatio n Not available Not available Not available 04/30/20232017 52644 009 SNOMED Not Available [facility] 3 16:31:19 25389 lisinopri l medicatio n cough mild Not available 04/30/20232015 20691 RxNorm cough Aller gyCod e: '3140 76'; Aller gyNam e: 'SARAH NOPRI L'; Aller gyCon ceptT ype: 'RX Norm' ; Not Available [facility] 3 16:31:19 64060 Zetia medicatio n myalgias (muscle pain) mild Not available 04/30/20232006 94164 9 RxNorm MYALG [place] Not Available [facility] 3 16:31:20 95918 Plaquenil medicatio n myalgias (muscle pain) mild Not available 04/30/20232006 18484 2 RxNorm MYALG [place] Not Available [facility] 3 16:31:20 00550 Cozaar medicatio n Not available Not available Not available 04/30/20232004 06694 8 RxNorm Not Available [facility] 3 16:31:20 46827 atenolol medicatio n cough mild low 05/05/20232022 1202 RxNorm PHYLLIS CARRASCO MA [facility] 12:16:33 11589 acetamino phen / oxycodone medicatio n rash moderate high 05/05/20232022 97339 3 RxNorm PHYLLIS CARRASCO MA [facility], [facility] 3 12:17:17 02899 Plavix medicatio n rash severe high 05/05/20232022 74385 2 RxNorm ELBA JETT MD [address], [place], [address] [place] [address] 4 19:41:48 26536 ticagrelo r medicatio n abdominal pain severe Not available 07/02/20232022 84612 32 RxNorm Aller gyRea ction : 'Carlos Manuel roint estin al,'; Aller gyNam e: 'ILA GRELO R'; Not Available [facility] 4 05:10:26 57777 aspirin medicatio n Not available Not available high 07/23/2023 1191 RxNorm GI bleed ELBA JETT MD [address], [place], [address] [place] [address] 4 19:41:13 48491 Jardiance medicatio n Not available Not available [facility] 07/24/2023 74482 59 RxNorm recur rent yeast infec tions and UTIs ELBA JETT MD [address], [place], [address] [place] [address] 4 19:42:15 Medications Name Sig Start Date Stop Date Status Note LastModified by Organization Details LastModified Time Prescript ion - Change 06/25 completed Not Available Not Available Not Available furosemid e 40 mg tablet TAKE ONE TABLET BY MOUTH EVERY DAY FOR 3 DAYS active Not Available Not Available No t Available metformin 500 mg tablet Take 2 by [...] tab by mouth daily 05/10 completed per [facility] endocrin ology Not Available Not Available Not [...] mouth once a day 06/25 completed Per [facility] D/C summary 12/09/22 Not Available Not Available [...] once a day 11/17 completed started at [facility] discharg e 3 followin g recurren t TIA Not Available [...] for nausea and vomiting 11/17 completed Per [facility] ED 11/02/22 Not Available Not Available [...] with humalog pen if preferre d by [facility] e ID# [id number] Not Available Not Available Not Available diltiazem ER 360 mg tablet,ex tended release 24 hr 1 QD 04/07 completed Not Available Not Available Not Available metformin ER 750 mg tablet,ex tended release 24 hr TAKE 1 TABLET TWICE A DAY active Not Available Not Available No t Available Ciprodex 0.3 %-0.1 % ear drops,kaylyn pension [...] Not Available Not Available No t Available Probiotic 10 billion cell capsule 1 [...] cap by mouth twice daily [facility] Not Available Not Available Repatha Syringe 140 mg/mL subcutane ous syringe INJECT 140 MG UNDER THE SKIN EVERY OTHER WEEK 07/24 completed Not Available Not Available Not Available Repatha SureClick 140 mg/mL subcutane ous pen injector INJECT 1ML UNDER THE SKIN EVERY 2 WEEKS active Not Available Not Available No t Available Brilinta 60 mg tablet TAKE ONE TABLET [...] subcutan eously once a week 04/05 completed [facility] Not Available Not Available Not Available Ozempic 0.25 mg or 0.5 mg (2 mg/1.5 mL) subcutane ous pen injector Inject 0.25 mg subcutan eously once a week For 4 weeks 12/28 completed Not Available Not Available Not Available BD Laila 2nd Gen Pen Needle 32 gauge x 32 Use 1 needle subcutan eously four times a day active Not Available Not Available No t Available FreeStyle Lo 2 Sensor kit 11/07 [...] Not Available Not Available FreeStyle Lo 3 [place] Use as directed active Not Available Not Available No t Available Vitals Date Recorded Body height Body mass index (BMI) Body weight Body temperature Oxygen saturation Oxygen saturation in Arterial blood by Pulse oximetry Heart rate Systolic blood pressure Diastolic blood pressure Provider Name and Address Organization Details Last Updated DateTime 4 162.56 cm 23.7 kg/m2 77607.7 5 g 97.1 [degF] 97 % 97 % 70 /min 130 mm[Hg] 72 mm[Hg] PHYLLIS CARRASCO MA [facility], [facility] 4 09:08:21 Social History Question Answer Notes LastModified by Organizat ion Details LastModified Time Tobacco Smoking Status Never Smoker PHYLLIS CARRASCO MA [facility], [facility]. 05/05/2023 13:38:34 What Is Your Level Of Alcohol Consumption? None Information not available 05/05/2023 Date Care Plan Printed: 08/12/2023 First Printed 04/26/23 (old System) Information not available 08/12/2023 Assigned Entry Level Software Developer: Leisa [email or web address] Information not available 08/12/2023 Is [facility] The Lead Entry Level Software Developer? Yes Information no t available 08/12/2023 Level [...] or mental illness Medical History Condition Response Neurologic Disorder Gastrointestinal Disease Heart Disease Y Gynecological HistoryNo gynecological history recorded. Obstetrics History GPAL:G 0 P 0 0 0 0 Immunizations Vaccine Type Date Status Provider Name and Address Organization Details Recorded Time Td (adult), 2 Lf tetanus toxoid, preservative free, adsorbed 08/05/2021 completed Not Available [facility] 04/30/2023 05:10:29 Tdap 12/18/2011 completed Not Available [facility] 05:10:29 zoster live 07/12/2012 completed Not Available [facility] 04/30/2023 05:10:29 Pneumococcal conjugate PCV 13 06/29/2017 completed Not Available [facility] 04/30/2023 05:10:29 Influenza, high-dose, trivalent, PF 05/09/2018 completed Not Available [facility] 04/30/2023 05:10:29 Td(adult) unspecified formulation 10/01/2005 completed Not Available [facility] 04/30/2023 05:10:30 Td(adult) unspecified formulation 12/18/2011 completed Not Available [facility] 04/30/2023 05:10:30 Td(adult) unspecified formulation 04/06/1996 completed Not Available [facility] 04/30/2023 05:10:30 Influenza, split virus, trivalent, preservative 03/13/2015 completed Not Available [facility] 04/30/2023 05:10:30 Influenza, split virus, trivalent, preservative 04/14/2016 completed Not Available [facility] 04/30/2023 05:10:30 Influenza, split virus, quadrivalent, preservative 04/27/2017 completed Not Available [facility] 04/30/2023 05:10:31 Influenza, MDCK, quadrivalent, PF 05/08/2019 completed Not Available [facility] 04/30/2023 05:10:32 Influenza, high-dose, quadrivalent, PF 04/21/2022 completed Not Available [facility] 04/30/2023 05:10:32 COVID-19, mRNA, LNP-S, PF, 100 mcg/0.5mL dose or 50 mcg/0.25mL dose 11/03/2021 completed Not Available [facility] 04/30/2023 05:10:32 COVID-19, mRNA, LNP-S, PF, 30 mcg/0.3 mL dose 08/19/2020 completed Not Available [facility] 04/30/2023 05:10:32 COVID-19, mRNA, LNP-S, PF, 30 mcg/0.3 mL dose 09/16/2020 completed Not Available [facility] 04/30/2023 05:10:32 COVID-19, mRNA, LNP-S, PF, 30 mcg/0.3 mL dose 04/10/2021 [facility] 04/30/2023 05:10:33 COVID-19, mRNA, LNP-S, bivalent, PF, 30 mcg/0.3 mL dose 05/07/2022 completed Not Available [facility] 04/30/20 05:10:33 pneumococcal polysaccharide PPV23 09/26/2018 completed Not Available [facility] 2022 05:10:34 pneumococcal polysaccharide PPV23 04/06/1996 completed Not Available [facility] 2022 05:10:34 influenza, unspecified formulation 03/04/2020 completed Not Available [facility] 04/30/2023 05:10:34 Influenza, high-dose, quadrivalent, PF 03/05/2023 completed Not Available [facility] 07/02/2023 05:30:45 COVID-19, mRNA, LNP-S, PF, arthur-sucrose, 30 mcg/0.3 mL 03/25/2023 completed Not Available [facility] 07/02/2023 05:30:45 Past Encounters Encounter ID Performer Location Encounter Start Date Encounter Closed Date Diagnosis/Indication Diagnosis SNOMED-CT Code [id number] ELBA JETT MD [address] [address] 12/06/2023 08:09:33 12/06/2023 09:15:34 [facility] [id number] ELBA JETT MD [address] [address] 12/30/2023 08:53:35 12/30/2023 10:43:36 Type II diabetes mellitus uncontrolled [id number] Overweight [id number] Dyspnea on exertion [id number] Goals Section Goal Description Status Start Date LastModified by Organization Details LastModified Time Pt's A1C will improve. None Recorded Goal not achieved 08/12/19 24 LEISA SEGOVIA Information not available 08/12/2023 12:57:51 Pt will utilize CGM and alarms to alert her to highs and lows None Recorded Goal not achieved 08/12/19 24 LEISA SEGOVIA Information not available 08/12/2023 13:01:08 Health Concerns Section Related Observation LastModified by Organization Detai ls LastModified Time None Recorded Concern Status LastModified by Organization Details LastModified Time None Recorded Payers Encounter Date Sequence Insurance Name Policy Number Policy Acharya Covered Member ID Acharya Member ID Guarantor Name 12/30/2023 1 [facility] (MEDICARE REPLACEMENT/A DVANTAGE - PPO) [id number] Joanna Hart [id number] Joanna Hart Notes Date Note Type Note Provider Name and Address Organization Details Recorded Time 12/30/2023 text/html HPI Notes: Cristino martinez and Kenneth present in follow-up. She endorses two days of dyspnea, feels like she can't catch her breath with exertion. Similar to how she felt before her heart attack last summer. Denies chest pain, orthopnea. No known lung disease. She has had no weight gain or edema. Actually has had some weight loss since last visit a month ago. She otherwise feels at baseline. She didn't tell Kenneth about these symptoms. He didn't notice any distress at home. She has a chronically elevated troponin. Cardiac history: - CAD with NSTEMI 11/2022. 90% stenosis of RCA found on angiography. [facility] completed 12/08/22 with successful RCA stenting. - HCM severe asymmetric hypertrophy of LV with septal thickness 1.7 cm. ACC Stage C, NYHA III HFpEF - NSVT. s/p [employer] Bi-V ICD implant. - PAF. 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 ELBA JETT MD [address], [place], [address], [place] - [facility]. 12/30/2023 10:50:17 OBGyn Episode No OBEpisode recorded.
--- OUTSIDE RECORDS SUMMARY | 2024-01-12 11:17 | XMS_ITS | Data Portability ---
Author Organization [facility], [facility] [place] [address] Care Team Providers Care Life Care Planner Name Role Phone [facility] OTHER BHARATH JETT Primary Care Provider LEISA SEGOVIA OTHER Assessment Encounter Date Assessment Date Assessment LastModified by Organization Details LastModified Time 11/03/2023 11/03/2023 The total time devoted to today's encounter, including both the edum-ze-ojkr time with the patient and/or family/caregi pam and lgk-rmpz-zm-f lópez time I personally spent is 37 minutes. [facility] Not available 11/04/2023 07:33:34 Plan of Treatment Reminders Order Date Submit Date Provider Last Modified By Organization Details Last Modified Time Details Appointments Medical Nutritio n Therapy 90 2023 11:00A M Isatu Yo Not available Not available Not available Annual Chronic Care (65+) 40 2023 02:40P Naman Jett Not available Not available Not available Lab hemoglob in A1C, fingerst ick 2023 024 [facility], [address] [place], [address], 11/03/2023 14:49:34 BMP, serum or plasma 2023 024 [facility] ([facility]), [address] [place] [address] [place], [address], 12/15/2023 13:55:51 protein electrop horesis panel, serum or plasma 2023 024 [facility] ([facility]), [address] [place] [address] [place], [address], 12/14/2023 14:48:56 TSH, serum, reflex free T4 2023 [facility] ([facility]), [address] [place] [address] [place], [address], 12/15/2023 13:56:06 lyme disease igg+igm, serum, reflex western blot 2023 024 [facility] ([facility]), [address] [place] [address] [place], [address], 12/15/2023 13:56:24 vitamin B6 (pyridox ine), plasma 2023 024 [facility] ([facility]), [address] [place] [address] [place], [address], 12/20/2023 10:16:41 hemoglob in A1C, fingerst ick 2023 [facility], [address] [place] [address], [phone], 12/30/2023 10:34:51 CBC w/ auto diff 2023 024 [facility] ([facility]), [address] [place] [address] [place], [address], 12/30/2023 11:02:48 BNP (B-type natriure tic peptide) , serum or plasma 2023 024 [email or web address] [facility] ([facility]), [address] [place] [address] [place], [address], 01/06/2024 08:37:02 troponin I, serum or plasma 2023 024 [facility] ([facility]), [address] [place], [address], 12/30/2023 11:24:47 Referral optometr ist referral - once visit is complete please send us the visit notes 2023 024 [facility], [address] [place] [address] [place], [address], 01/10/2024 14:14:27 Procedures None recorded . Surgeries None recorded . Imaging electroc ardiogra m 2023 [facility], [address] [place] [address], [phone], 12/30/2023 12:41:58 Medication Orders Lantus Solostar U-100 Insulin 100 unit/mL (3 mL) subcutan eous pen 2023 024 [facility], [address] [place] [address], [address], 10/04/2023 15:54:20 Patient TargetsNo targets recorded. 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 Referral for Typ e II diabetes mellitus uncontrolled once visit is complete please send us the visit notes Referring Physician: Bharath Jett Family Medicine, Encounter Date: 11/03/2023 Results Created Date Observation Date Name Description Value Unit Range Abnormal Flag LastModifiedBy Organization Detail LastModifiedTime 11/03/19 24 11/03/2023 hemog lobin A1C, finge rstic k hemoglobin A1C 7.7 % <5.7 Not Available [address] [place], [address], 11/03/2023 14:48:42 11/28/19 24 11/28/2023 COMPL ETE BLOOD COUNT W/DIF F WBC 9.39 10_3/ uL 4.4-10 .8 normal Not Available [address] [place], [address] 11/28/2023 18:49:39 11/28/19 24 11/28/2023 COMPL ETE BLOOD COUNT W/DIF F RBC 4.73 10_6/ uL 3.93-5 .22 normal Not Available [address] [place], [address] 11/28/2023 18:49:39 11/28/19 24 11/28/2023 COMPL ETE BLOOD COUNT W/DIF F HGB 13.4 g/dL 11.2-1 5.7 normal Not Available [address] [place], [address] 11/28/2023 18:49:39 11/28/19 24 11/28/2023 COMPL ETE BLOOD COUNT W/DIF F HCT 41.0 % 36.0-4 6.0 normal Not Available [address] [place], [address] 11/28/2023 18:49:39 11/28/19 24 11/28/2023 COMPL ETE BLOOD COUNT W/DIF F MCV 87 fL 80-95 normal Not Available Mohamud roldan [address] [place], [address] 11/28/2023 18:49:39 11/28/19 24 11/28/2023 COMPL ETE BLOOD COUNT W/DIF F MCH 28.3 pg 27.0-3 3.0 normal Not Available [address] [place], [address] 11/28/2023 18:49:39 11/28/19 24 11/28/2023 COMPL ETE BLOOD COUNT W/DIF F MCHC 32.7 % 32.0-3 6.0 normal Not Available [address] [place], [address] 11/28/2023 18:49:39 11/28/19 24 11/28/2023 COMPL ETE BLOOD COUNT W/DIF F RDW 13.7 % 11.7-1 4.6 normal Not Available [address] [place], [address] 11/28/2023 18:49:39 11/28/19 24 11/28/2023 COMPL ETE BLOOD COUNT W/DIF F platelet count 280 10_3/ uL 130-40 0 normal Not Available [address] [place], [address] 11/28/2023 18:49:39 11/28/19 24 11/28/2023 COMPL ETE BLOOD COUNT W/DIF F MPV 10.3 fL 8.0-11 .0 normal Not Available [address] [place], [address] 11/28/2023 18:49:39 11/28/19 24 11/28/2023 COMPL ETE BLOOD COUNT W/DIF F neutrophils % 48.6 % Not Available [address] [place], [address] 11/28/2023 18:49:39 11/28/19 24 11/28/2023 COMPL ETE BLOOD COUNT W/DIF F lymphocytes % 39.1 % Not Available [address] [place], [address] 11/28/2023 18:49:39 11/28/19 24 11/28/2023 COMPL ETE BLOOD COUNT W/DIF F monocytes % 8.0 % Not Available [address] [place], [address] 11/28/2023 18:49:39 11/28/19 24 11/28/2023 COMPL ETE BLOOD COUNT W/DIF F eosinophils % 3.5 % Not Available [address] [place], [address] 11/28/2023 18:49:39 11/28/19 24 11/28/2023 COMPL ETE BLOOD COUNT W/DIF F basophils % 0.6 % Not Available [address] [place], [address] 11/28/2023 18:49:39 11/28/19 24 11/28/2023 COMPL ETE BLOOD COUNT W/DIF F immature grans % 0.2 % Not Available [address] [place], [address] 11/28/2023 18:49:39 11/28/19 24 11/28/2023 COMPL ETE BLOOD COUNT W/DIF F nucleated RBC 0.0 % 0.0-0. 3 normal Not Available [address] [place], [address] 11/28/2023 18:49:39 11/28/19 24 11/28/2023 COMPL ETE BLOOD COUNT W/DIF F absolute neutrophil count 4.56 10_3/ uL 1.2-6. 7 normal Not Available [address] [place], [address] 11/28/2023 18:49:39 11/28/19 24 11/28/2023 COMPL ETE BLOOD COUNT W/DIF F absolute lymphocyte count 3.67 10_3/ uL 1.2-3. 4 high Not Available [address] [place], [address] 11/28/2023 18:49:39 11/28/19 24 11/28/2023 COMPL ETE BLOOD COUNT W/DIF F absolute monocyte count 0.75 10_3/ uL 0.1-0. 8 normal Not Available [address] [place], [address] 11/28/2023 18:49:39 11/28/19 24 11/28/2023 COMPL ETE BLOOD COUNT W/DIF F absolute eosinophil count 0.33 10_3/ uL 0.0-0. 7 normal Not Available [address] [place], [address] 11/28/2023 18:49:39 11/28/19 24 11/28/2023 COMPL ETE BLOOD COUNT W/DIF F absolute basophil count 0.06 10_3/ uL 0.0-0. 2 normal Not Available [address] [place], [address] 11/28/2023 18:49:39 11/28/19 24 11/28/2023 COMPR EHENS BHARTI METAB OLIC PANEL calcium 10.2 mg/dL 8.5-10 .1 high Not Available [address] [place], [address] 11/28/2023 19:05:40 11/28/19 24 11/28/2023 COMPR EHENS BHARTI METAB OLIC PANEL glucose 178 mg/dL 74-106 high Not Available [address] [place], [address] 11/28/2023 19:05:40 11/28/19 24 11/28/2023 COMPR EHENS BHARTI METAB OLIC PANEL BUN 18 mg/dL 7-18 normal Not Available [address] [place], [address] 11/28/2023 19:05:40 11/28/19 24 11/28/2023 COMPR EHENS BHARTI METAB OLIC PANEL creatinine 1.1 mg/dL 0.55-1 .02 high Not Available [address] [place], [address] 11/28/2023 19:05:40 11/28/19 24 11/28/2023 COMPR EHENS BHARTI METAB OLIC PANEL estimated GFR 53.72 mL/min /1.73m 2 Not Available [address] [place], [address] 11/28/2023 19:05:40 11/28/19 24 11/28/2023 COMPR EHENS BHARTI METAB OLIC PANEL total protein 7.2 g/dL 6.4-8. 2 normal Not Available [address] [place], [address] 11/28/2023 19:05:40 11/28/19 24 11/28/2023 COMPR EHENS BHARTI METAB OLIC PANEL albumin 3.8 g/dL 3.4-5. 0 normal Not Available [address] [place], [address] 11/28/2023 19:05:40 11/28/19 24 11/28/2023 COMPR EHENS BHARTI METAB OLIC PANEL bilirubin, total 0.3 mg/dL 0.2-1. 0 normal Not Available [address] [place], [address] 11/28/2023 19:05:40 11/28/19 24 11/28/2023 COMPR EHENS BHARTI METAB OLIC PANEL alk phos 67 U/L 46-116 normal Not Available [address] [place], [address] 11/28/2023 19:05:40 11/28/19 24 11/28/2023 COMPR EHENS BHARTI METAB OLIC PANEL sodium 141 mmol/ L 136-14 5 normal Not Available [address] [place], [address] 11/28/2023 19:05:40 11/28/19 24 11/28/2023 COMPR EHENS BHARTI METAB OLIC PANEL potassium 4.2 mmol/ L 3.5-5. 1 normal Not Available [address] [place], [address] 11/28/2023 19:05:40 11/28/19 24 11/28/2023 COMPR EHENS BHARTI METAB OLIC PANEL chloride 106 mmol/ L 98-107 normal Not Available [address] [place], [address] 11/28/2023 19:05:40 11/28/19 24 11/28/2023 COMPR EHENS BHARTI METAB OLIC PANEL CO2 24.5 mmol/ L 21.0-3 2.0 normal Not Available [address] [place], [address] 11/28/2023 19:05:40 11/28/19 24 11/28/2023 COMPR EHENS BHARTI METAB OLIC PANEL anion gap 10.5 mmol/ L 3-11 normal Not Available [address] [place], [address] 11/28/2023 19:05:40 11/28/19 24 11/28/2023 COMPR EHENS BHARTI METAB OLIC PANEL AST 17 U/L 15-37 normal Not Available [address] [place], [address] 11/28/2023 19:05:40 11/28/19 24 11/28/2023 COMPR EHENS BHARTI METAB OLIC PANEL ALT 25 U/L 14-59 normal Not Available [address] [place], [address] 11/28/2023 19:05:40 11/28/19 24 11/28/2023 MAGNE SIUM magnesium 1.4 mg/dL 1.8-2. 4 low Not Available [address] [place], [address] 11/28/2023 19:05:41 11/28/19 24 11/28/2023 TROPO ABEL I troponin I 119 NG/L < or =60 panic high Not Available [address] [place], [address] 11/28/2023 19:05:41 11/28/19 24 11/28/2023 URINA LYSIS color Yellow yellow Not Available [address] [place], [address] 11/28/2023 21:43:16 11/28/19 24 11/28/2023 URINA LYSIS clarity Sl Cloudy clear Not Available [address] [place], [address] 11/28/2023 21:43:16 11/28/19 24 11/28/2023 URINA LYSIS specific gravity 1.020 1.005- 1.025 normal Not Available [address] [place], [address] 11/28/2023 21:43:16 11/28/19 24 11/28/2023 URINA LYSIS pH 5.5 5-8 normal Not Available [facility] [address] [place], [address] 11/28/2023 21:43:16 11/28/19 24 11/28/2023 URINA LYSIS leukocyte esterase Negati ve negati ve Not Available [address] [place], [address] 11/28/2023 21:43:16 11/28/19 24 11/28/2023 URINA LYSIS nitrite Negati ve negati ve Not Available [address] [place], [address] 11/28/2023 21:43:16 11/28/19 24 11/28/2023 URINA LYSIS protein 30 mg/dL neg-tr lópez abnormal Not Available [address] [place], [address] 11/28/2023 21:43:16 11/28/19 24 11/28/2023 URINA LYSIS glucose Negati ve mg/dL negati ve Not Available [address] [place], [address] 11/28/2023 21:43:16 11/28/19 24 11/28/2023 URINA LYSIS ketones Negati ve mg/dL negati ve Not Available [address] [place], [address] 11/28/2023 21:43:16 11/28/19 24 11/28/2023 URINA LYSIS urobilinogen 0.2 mg/dL up to 0.2 Not Available [address] [place], [address] 11/28/2023 21:43:16 11/28/19 24 11/28/2023 URINA LYSIS bilirubin Negati ve negati ve Not Available [address] [place], [address] 11/28/2023 21:43:16 11/28/19 24 11/28/2023 URINA LYSIS blood Negati ve negati ve Not Available [address] [place], [address] 11/28/2023 21:43:16 11/28/19 24 11/28/2023 URINA LYSIS color Yellow yellow Not Available Mohamud roldan [address] [place], [address] 11/28/2023 21:43:17 11/28/19 24 11/28/2023 URINA LYSIS clarity Sl Cloudy clear Not Available [address] [place], [address] 11/28/2023 21:43:17 11/28/19 24 11/28/2023 URINA LYSIS specific gravity 1.020 1.005- 1.025 normal Not Available [address] [place], [address] 11/28/2023 21:43:17 11/28/19 24 11/28/2023 URINA LYSIS pH 5.5 5-8 normal Not Available Mohamud jamar [address] [place], [address] 11/28/2023 21:43:17 11/28/19 24 11/28/2023 URINA LYSIS leukocyte esterase Negati ve negati ve Not Available [address] [place], [address] 11/28/2023 21:43:17 11/28/19 24 11/28/2023 URINA LYSIS nitrite Negati ve negati ve Not Available [address] [place], [address] 11/28/2023 21:43:17 11/28/19 24 11/28/2023 URINA LYSIS protein 30 mg/dL neg-tr lópez abnormal Not Available [address] [place], [address] 11/28/2023 21:43:17 11/28/19 24 11/28/2023 URINA LYSIS glucose Negati ve mg/dL negati ve Not Available [address] [place], [address] 11/28/2023 21:43:17 11/28/19 24 11/28/2023 URINA LYSIS ketones Negati ve mg/dL negati ve Not Available [address] [place], [address] 11/28/2023 21:43:17 11/28/19 24 11/28/2023 URINA LYSIS urobilinogen 0.2 mg/dL up to 0.2 Not Available [address] [place], [address] 11/28/2023 21:43:17 11/28/19 24 11/28/2023 URINA LYSIS bilirubin Negati ve negati ve Not Available [address] [place], [address] 11/28/2023 21:43:17 06/09/11/28/2023 URINA LYSIS blood Negati ve negati ve Not Available [address] [place], [address] 11/28/2023 21:43:17 11/28/19 24 11/28/2023 MICRO SCOPI C FINDI NGS WBC 3-5 hpf 0-5 Not Available Mohamud yangangela [address] [place], [address] 11/28/2023 21:43:17 11/28/19 24 11/28/2023 MICRO SCOPI C FINDI NGS RBC Negati ve hpf 0-2 Not Available [address] [place], [address] 11/28/2023 21:43:17 11/28/19 24 11/28/2023 MICRO SCOPI C FINDI NGS epithelial cells Few hpf negati ve Not Available [address] [place], [address] 11/28/2023 21:43:17 11/28/19 24 11/28/2023 MICRO SCOPI C FINDI NGS bacteria Few hpf negati ve Not Available [address] [place], [address] 11/28/2023 21:43:17 11/28/19 24 11/28/2023 MICRO SCOPI C FINDI NGS crystals Negati ve hpf negati ve Not Available [address] [place], [address] 11/28/2023 21:43:17 11/28/19 24 11/28/2023 MICRO SCOPI C FINDI NGS mucus Negati ve negati ve Not Available [address] [place], [address] 11/28/2023 21:43:17 11/28/19 24 11/28/2023 MICRO SCOPI C FINDI NGS casts Negati ve lpf negati ve Not Available [address] [place], [address] 11/28/2023 21:43:17 11/28/19 24 11/28/2023 MICRO SCOPI C FINDI NGS C S indicated? No Not Available [address] [place], [address] 11/28/2023 21:43:17 11/28/19 24 11/28/2023 TROPO ABEL I troponin I 121 NG/L < or =60 panic high Not Available [address] [place], [address] 11/28/2023 22:28:07 12/13/19 24 12/13/2023 BASIC METAB OLIC PANEL calcium 10.1 mg/dL 8.5-10 .1 normal Not Available [facility]) [address] [place] [address] [place], [address], 12/13/2023 10:14:32 12/13/19 24 12/13/2023 BASIC METAB OLIC PANEL glucose 185 mg/dL 74-106 high Not Available [facility]) [address] [place] [address] [place], [address], 12/13/2023 10:14:32 12/13/19 24 12/13/2023 BASIC METAB OLIC PANEL BUN 17 mg/dL 7-18 normal Not Available [facility]) [address] [place] [address] [place], [address], 12/13/2023 10:14:32 12/13/19 24 12/13/2023 BASIC METAB OLIC PANEL creatinine 1.2 mg/dL 0.55-1 .02 high Not Available [facility]) [address] [place] [address] [place], [address], 12/13/2023 10:14:32 12/13/19 24 12/13/2023 BASIC METAB OLIC PANEL estimated GFR 48.39 mL/min /1.73m 2 Not Available [facility]) [address] [place] [address] [place], [address], 12/13/2023 10:14:32 12/13/19 24 12/13/2023 BASIC METAB OLIC PANEL sodium 142 mmol/ L 136-14 5 normal Not Available [facility]) [address] [place] [address] [place], [address], 12/13/2023 10:14:32 12/13/19 24 12/13/2023 BASIC METAB OLIC PANEL potassium 4.7 mmol/ L 3.5-5. 1 normal Not Available [facility]) [address] [place] [address] [place], [address], 12/13/2023 10:14:32 12/13/19 24 12/13/2023 BASIC METAB OLIC PANEL chloride 106 mmol/ L 98-107 normal Not Available [facility]) [address] [place] [address] [place], [address], 12/13/2023 10:14:32 12/13/19 24 12/13/2023 BASIC METAB OLIC PANEL CO2 28.7 mmol/ L 21.0-3 2.0 normal Not Available [facility]) [address] [place] [address] [place], [address], 12/13/2023 10:14:32 12/13/19 24 12/13/2023 BASIC METAB OLIC PANEL anion gap 7.3 mmol/ L 3-11 normal Not Available [facility]) [address] [place] [address] [place], [address], 12/13/2023 10:14:32 12/13/19 24 12/13/2023 TSH (W/RE F FT4) TSH (w/ref FT4) 5.21 uIU/m L 0.36-3 .74 high Not Available [address] [place], [address] 12/13/2023 10:14:32 12/13/19 24 12/13/2023 BASIC METAB OLIC PANEL calcium 10.1 mg/dL 8.5-10 .1 normal Not Available [address] [place], [address] 12/13/2023 10:41:40 12/13/19 24 12/13/2023 BASIC METAB OLIC PANEL glucose 185 mg/dL 74-106 high Not Available [address] [place], [address] 12/13/2023 10:41:40 12/13/19 24 12/13/2023 BASIC METAB OLIC PANEL BUN 17 mg/dL 7-18 normal Not Available [address] [place], [address] 12/13/2023 10:41:40 12/13/19 24 12/13/2023 BASIC METAB OLIC PANEL creatinine 1.2 mg/dL 0.55-1 .02 high Not Available [address] [place], [address] 12/13/2023 10:41:40 12/13/19 24 12/13/2023 BASIC METAB OLIC PANEL estimated GFR 48.39 mL/min /1.73m 2 Not Available [address] [place], [address] 12/13/2023 10:41:40 12/13/19 24 12/13/2023 BASIC METAB OLIC PANEL sodium 142 mmol/ L 136-14 5 normal Not Available [address] [place], [address] 12/13/2023 10:41:40 12/13/19 24 12/13/2023 BASIC METAB OLIC PANEL potassium 4.7 mmol/ L 3.5-5. 1 normal Not Available [address] [place], [address] 12/13/2023 10:41:40 12/13/19 24 12/13/2023 BASIC METAB OLIC PANEL chloride 106 mmol/ L 98-107 normal Not Available [address] [place], [address] 12/13/2023 10:41:40 12/13/19 24 12/13/2023 BASIC METAB OLIC PANEL CO2 28.7 mmol/ L 21.0-3 2.0 normal Not Available [address] [place], [address] 12/13/2023 10:41:40 12/13/19 24 12/13/2023 BASIC METAB OLIC PANEL anion gap 7.3 mmol/ L 3-11 normal Not Available [address] [place], [address] 12/13/2023 10:41:40 12/13/19 24 12/13/2023 TSH (W/RE F FT4) TSH (w/ref FT4) 5.21 uIU/m L 0.36-3 .74 high Not Available [facility] ([facility]) [address] [place] [address] [place], [address], 12/13/2023 10:41:42 12/13/19 24 12/13/2023 FREE T4 free T4 1.04 NG/dL 0.76-1 .46 normal Not Available [address] [place], [address] 12/13/2023 10:41:42 12/13/19 24 12/14/2023 LYME AB W RFLX TO LYME CONFI RM lyme Ab W rflx to lyme confirm Negati ve negati ve Not Available [facility] ([facility]) [address] [place] [address] [place], [address], 12/14/2023 14:48:56 12/13/19 24 12/14/2023 ELECT ROPHO RESIS , SERUM total protein 6.3 g/dL 6.3-8. 2 Not Available [address] [place], [address] 12/14/2023 14:48:58 12/13/19 24 12/14/2023 ELECT ROPHO RESIS , SERUM albumin 60.0 % 55.8-6 6.1 Not Available [address] [place], [address] 12/14/2023 14:48:58 12/13/19 24 12/14/2023 ELECT ROPHO RESIS , SERUM alpha 1 4.9 % 2.9-4. 9 Not Available [address] [place], [address] 12/14/2023 14:48:58 12/13/19 24 12/14/2023 ELECT ROPHO RESIS , SERUM alpha 2 11.4 % 7.1-11 .8 Not Available [address] [place], [address] 12/14/2023 14:48:58 12/13/19 24 12/14/2023 ELECT ROPHO RESIS , SERUM beta 13.4 % 8.4-13 .1 abnormal Not Available [address] [place], [address] 12/14/2023 14:48:58 12/13/19 24 12/14/2023 ELECT ROPHO RESIS , SERUM gamma 10.3 % 11.1-1 8.8 abnormal Not Available [address] [place], [address] 12/14/2023 14:48:58 12/13/19 24 12/14/2023 ELECT ROPHO RESIS , SERUM comment SEE BELOW Not Available [address] [place], [address] 12/14/2023 14:48:58 12/13/19 24 12/14/2023 ELECT ROPHO RESIS , SERUM albumin g/dL 3.8 g/dL 3.6-5. 2 Not Available [address] [place], [address] 12/14/2023 14:48:58 12/13/19 24 12/14/2023 ELECT ROPHO RESIS , SERUM alpha 1 g/dL 0.30 g/dL 0.15-0 .40 Not Available [address] [place], [address] 12/14/2023 14:48:58 12/13/19 24 12/14/2023 ELECT ROPHO RESIS , SERUM alpha 2 g/dL 0.70 g/dL 0.50-1 .00 Not Available [address] [place], [address] 12/14/2023 14:48:58 12/13/19 24 12/14/2023 ELECT ROPHO RESIS , SERUM beta g/dL 0.80 g/dL 0.60-1 .20 Not Available [address] [place], [address] 12/14/2023 14:48:58 12/13/19 24 12/14/2023 ELECT ROPHO RESIS , SERUM gamma g/dL 0.60 g/dL 0.60-1 .60 Not Available [address] [place], [address] 12/14/2023 14:48:58 12/13/19 24 12/14/2023 LYME AB W RFLX TO LYME CONFI RM lyme Ab W rflx to lyme confirm Negati ve negati ve Not Available [address] [place], [address] 12/14/2023 14:48:58 12/13/19 24 12/18/2023 PYRID OXAL 5-VADIM SPHAT E (PLP) , P pyridoxal 5-phosphate (plp), P 4 mcg/L 5-50 abnormal Not Available [address] [place], [address] 12/20/2023 08:23:06 12/30/19 24 12/30/2023 COMPL ETE BLOOD COUNT W/DIF F WBC 8.41 10_3/ uL 4.4-10 .8 normal Not Available [address] [place], [address] 12/30/2023 11:02:48 12/30/19 24 12/30/2023 COMPL ETE BLOOD COUNT W/DIF F RBC 4.73 10_6/ uL 3.93-5 .22 normal Not Available [address] [place], [address] 12/30/2023 11:02:48 12/30/19 24 12/30/2023 COMPL ETE BLOOD COUNT W/DIF F HGB 13.4 g/dL 11.2-1 5.7 normal Not Available [address] [place], [address] 12/30/2023 11:02:48 12/30/19 24 12/30/2023 COMPL ETE BLOOD COUNT W/DIF F HCT 40.8 % 36.0-4 6.0 normal Not Available [address] [place], [address] 12/30/2023 11:02:48 12/30/19 24 12/30/2023 COMPL ETE BLOOD COUNT W/DIF F MCV 86 fL 80-95 normal Not Available [employer]an [address] [place], [address] 12/30/2023 11:02:48 12/30/19 24 12/30/2023 COMPL ETE BLOOD COUNT W/DIF F MCH 28.3 pg 27.0-3 3.0 normal Not Available [address] [place], [address] 12/30/2023 11:02:48 12/30/19 24 12/30/2023 COMPL ETE BLOOD COUNT W/DIF F MCHC 32.8 % 32.0-3 6.0 normal Not Available [address] [place], [address] 12/30/2023 11:02:48 12/30/19 24 12/30/2023 COMPL ETE BLOOD COUNT W/DIF F RDW 13.9 % 11.7-1 4.6 normal Not Available [address] [place], [address] 12/30/2023 11:02:48 12/30/19 24 12/30/2023 COMPL ETE BLOOD COUNT W/DIF F platelet count 270 10_3/ uL 130-40 0 normal Not Available [address] [place], [address] 12/30/2023 11:02:48 12/30/19 24 12/30/2023 COMPL ETE BLOOD COUNT W/DIF F MPV 10.3 fL 8.0-11 .0 normal Not Available [address] [place], [address] 12/30/2023 11:02:48 12/30/19 24 12/30/2023 COMPL ETE BLOOD COUNT W/DIF F neutrophils % 59.1 % Not Available [address] [place], [address] 12/30/2023 11:02:48 12/30/19 24 12/30/2023 COMPL ETE BLOOD COUNT W/DIF F lymphocytes % 30.8 % Not Available [address] [place], [address] 12/30/2023 11:02:48 12/30/19 24 12/30/2023 COMPL ETE BLOOD COUNT W/DIF F monocytes % 7.1 % Not Available [address] [place], [address] 12/30/2023 11:02:48 12/30/19 24 12/30/2023 COMPL ETE BLOOD COUNT W/DIF F eosinophils % 2.1 % Not Available [address] [place], [address] 12/30/2023 11:02:48 12/30/19 24 12/30/2023 COMPL ETE BLOOD COUNT W/DIF F basophils % 0.7 % Not Available [address] [place], [address] 12/30/2023 11:02:48 12/30/19 24 12/30/2023 COMPL ETE BLOOD COUNT W/DIF F immature grans % 0.2 % Not Available [address] [place], [address] 12/30/2023 11:02:48 12/30/19 24 12/30/2023 COMPL ETE BLOOD COUNT W/DIF F nucleated RBC 0.0 % 0.0-0. 3 normal Not Available [address] [place], [address] 12/30/2023 11:02:48 12/30/19 24 12/30/2023 COMPL ETE BLOOD COUNT W/DIF F absolute neutrophil count 4.96 10_3/ uL 1.2-6. 7 normal Not Available [address] [place], [address] 12/30/2023 11:02:48 12/30/19 24 12/30/2023 COMPL ETE BLOOD COUNT W/DIF F absolute lymphocyte count 2.59 10_3/ uL 1.2-3. 4 normal Not Available [address] [place], [address] 12/30/2023 11:02:48 12/30/19 24 12/30/2023 COMPL ETE BLOOD COUNT W/DIF F absolute monocyte count 0.60 10_3/ uL 0.1-0. 8 normal Not Available [address] [place], [address] 12/30/2023 11:02:48 12/30/19 24 12/30/2023 COMPL ETE BLOOD COUNT W/DIF F absolute eosinophil count 0.18 10_3/ uL 0.0-0. 7 normal Not Available [address] [place], [address] 12/30/2023 11:02:48 12/30/19 24 12/30/2023 COMPL ETE BLOOD COUNT W/DIF F absolute basophil count 0.06 10_3/ uL 0.0-0. 2 normal Not Available [address] [place], [address] 12/30/2023 11:02:48 12/30/19 24 12/30/2023 TROPO ABEL I troponin I 126 NG/L < or =60 panic high Not Available [address] [place], [address] 12/30/2023 11:24:47 12/30/19 24 12/30/2023 NT-OR OBNP nt-probnp 1109 pg/mL <300 high Not Available Mohamud roldan [address] [place], [address] 12/30/2023 11:24:48 12/30/19 24 12/30/2023 hemog lobin A1C, finge rstic k hemoglobin A1C 7.9 % <5.7 Not Available [address], [address], 12/30/2023 09:18:44 10/05/19 24 10/05/2023 ICD inter rogat ion, in-pe rson (PROC ) No observ ation record ed. [email or web address] [facility] [address], [place], [address], 10/06/2023 09:44:46 11/28/19 24 11/28/2023 zach daniel Name: Cristino Hart Unit #: [id number] Loc: ER Orderi ng Provid er: Accoun t #: [id number] Status : REG ER Primar y Care Provid er: Bharath Jett Date of Exam: Sex: F : [...] FINDIN GS: ANTERI OR CIRCUL ATION: Right cisco certified internetwork expert al caroti d artery : Intrac ranial segmen t is patent with no signif icant stenos is. No aneury sm. Right middle cerebr al artery : No occlus ion or signif icant stenos is. No aneury sm. Right anteri or cerebr al artery : No occlus ion or signif icant stenos is. No aneury sm. Left cisco certified internetwork expert al caroti d artery : Intrac ranial segmen t is patent with no signif icant stenos is. No aneury sm. Left middle cerebr al artery : No occlus ion or signif icant stenos is. No aneury sm. Left anteri or cerebr al artery : No occlus ion or signif icant stenos is. No aneury sm. CREW MEMBER IOR CIRCUL ATION: Right verteb ral artery : No occlus ion or signif icant stenos is. No aneury sm. Left verteb ral artery : No occlus ion or signif icant stenos is. No aneury sm. Basila r artery : No occlus ion or signif icant stenos is. No aneury sm. Right top dyeing machine tender ior cerebr al artery : No occlus ion or signif icant stenos is. No aneury sm. Left top dyeing machine tender ior cerebr al artery : No occlus [...] branch es of the anteri or or top dyeing machine tender ior intrac ranial circul ation. 2. No [...] No dissec tion or occlus ion. Right cisco certified internetwork expert al caroti d artery : No stenos is of the extrac ranial segmen t. No dissec tion or occlus ion. Right residential building inspector al caroti d artery : No occlus ion or stenos is of the origin . Left common caroti d artery : No stenos is. No dissec tion or occlus ion. Left cisco certified internetwork expert al caroti d artery : No stenos is of the extrac ranial segmen t. No dissec tion or occlus ion. Left residential building inspector al caroti d artery : No occlus [...] segmen ts of the right or left cisco certified internetwork expert al caroti d arteri es by NASCET criter ia. REFERE NCES: NASCET CRITER IA. The degree of stenos is in the cervic al segmen t of the cisco certified internetwork expert al caroti d artery is based on NASCET criter ia. Normal is no stenos is. Mild is less than 50% stenos is. Modera te is 50-69% stenos is. Severe is 70% to 99% stenos is. Total occlus ion is no detect able patent lumen. Dictat ed and Ben chaudhari d by: Yohan Jennings MD. Orderi ng:Katherine miller MD Access ion#=[id number] Ordermichelle d By: CC: ------ ------ ------ ------ ------ ------ ------ ------ ------ ------ ------ ------ ---- Dictat ed By: Report s zach 1848 Transc ribed By: Eliana Davis 1848 This is privil eged, confid ential inform ation intend ed only for the provid er named. Any use or distri bution by any person other than this provid er is strict ly prohib ited. If you receiv e this report in error, please notify us immedtad obrien at and return the origin al report to us at the addres s above. Thank- you. [facility] [address], [place], [address] 11/29/2023 09:49:12 11/28/19 24 11/28/2023 vrad repor t Patien t Name: Cristino Hart Unit #: [id number] Loc: ER Orderi ng Provid er: Accoun t #: [id number] Status : REG ER Primar y Care Provid er: Bharath Jett Date of Exam: Sex: F : [...] MD. Orderi ng:Katherine miller MD Access ion#=[id number] Ordere d By: CC: ------ ------ [...] at the addres s above. [facility]- you. [facility] [address], [place], [address] 11/29/2023 09:49:13 11/28/1911/28/2023 vrad repor t Patien t Name: Cristino Hart Unit #: [id number] Loc: ER Orderi ng Provid er: Accoun t #: [id number] Status : REG ER Primar y Care Provid er: Bharath Jett Date of Exam: Sex: F : 1949 Age: 73 Exam(s ) Addend um brionna d by Yohan Jennings MD on 11/28/19 7:52:2 9 PM EDT: THIS REPORT CONTAI NS FINDIN GS THAT MAY BE CRITIC AL TO PATIEN T CARE. The findin gs were verbal ly commun icated via teleph one confer ence with ABELARDO DENTON at 7:52 PM EDT on 11/28/19. The findin gs were acknow ledged and unders tood. Initicharlette jay report brionna d on 11/28/19 7:46:2 1 PM EDT: [...] FINDIN GS: ANTERI OR CIRCUL ATION: Right cisco certified internetwork expert al caroti d artery : Intrac ranial segmen t is patent with no signif icant stenos is. No aneury sm. Right middle cerebr al artery : No occlus ion or signif icant stenos is. No aneury sm. Right anteri or cerebr al artery : No occlus ion or signif icant stenos is. No aneury sm. Left cisco certified internetwork expert al caroti d artery : Intrac ranial segmen t is patent with no signif icant stenos is. No aneury sm. Left middle cerebr al artery : No occlus ion or signif icant stenos is. No aneury sm. Left anteri or cerebr al artery : No occlus ion or signif icant stenos is. No aneury sm. CREW MEMBER IOR CIRCUL ATION: Right verteb ral artery : No occlus ion or signif icant stenos is. No aneury sm. Left verteb ral artery : No occlus ion or signif icant stenos is. No aneury sm. Basila r artery : No occlus ion or signif icant stenos is. No aneury sm. Right top dyeing machine tender ior cerebr al artery : No occlus ion or signif icant stenos is. No aneury sm. Left top dyeing machine tender ior cerebr al artery : No occlus [...] branch es of the anteri or or top dyeing machine tender ior intrac ranial circul ation. 2. No [...] No dissec tion or occlus ion. Right cisco certified internetwork expert al caroti d artery : No stenos is of the extrac ranial segmen t. No dissec tion or occlus ion. Right residential building inspector al caroti d artery : No occlus ion or stenos is of the origin . Left common caroti d artery : No stenos is. No dissec tion or occlus ion. Left cisco certified internetwork expert al caroti d artery : No stenos is of the extrac ranial segmen t. No dissec tion or occlus ion. Left residential building inspector al caroti d artery : No occlus [...] segmen ts of the right or left cisco certified internetwork expert al caroti d arteri es by NASCET criter ia. REFERE NCES: NASCET CRITER IA. The degree of stenos is in the cervic al segmen t of the cisco certified internetwork expert al caroti d artery is based on NASCET criter ia. Normal is no stenos is. Mild is less than 50% stenos is. Modera te is 50-69% stenos is. Severe is 70% to 99% stenos is. Total occlus ion is no detect able patent lumen. Dictat ed and Ben davenpotr by: Yohan Jennings MD. Orderi ng:Katherine miller MD Access ion#=[id number] Andria davenport By: CC: ------ ------ ------ ------ ------ ------ ------ ------ ------ ------ ------ ------ ---- Dictat ed By: Report s vrad 1848 Transc ribed By: Eliana Davis 1848 This is privil eged, confid ential inform ation intend ed only for the provid er named. Any use or distri bution by any person other than this [facility] er is strict ly prohib ited. If you receiv e this report in error, please notify us immedi ately at and return the origin al report to us at the addres s above. Thank- you. [facility] [address], [place], [address] 11/29/2023 09:49:13 11/29/19 24 11/29/2023 x-ray imagi ng repor t Patien t Name: Cristino Hart Unit #: [id number] Loc: MS Thurman ng Provid er: Charlette Denton Accoun t #: [id number] Status : ADM EJ Primar y Care Provid er: Bharath Jett Date of Exam: Sex: F Admiss [...] REPOSI TORY: RADIAT ION DOSE DELIVE RED: Andria d By: Charlette Denton CC: ------ ------ ------ ------ ------ ------ ------ ------ ------ ------ ------ ------ - Dictat ed By: Tashi Sánchez M.D. 819 Transc ribed By: Princess HAY,Paul diamond 819 This is privil eged, confid ential inform ation intend ed only for the provid er named. Any use or distri bution by any person other than this provid er is strict ly prohib ited. If you receiv e this report in error, please notify us immedi ately at and return the origin al report to us at the addres s above. Thank- you. [facility] [address], [place], [address] 11/29/2023 09:49:14 11/29/19 24 11/29/2023 CT imagi ng repor t Patidonald t Name: Cristino Hart Unit #: [id number] Loc: MS Orderi ng Provid er: al Charlette Saenzoun t #: [id number] Status : DIS EJ Primar y Care Provid er: Bharath Jett Date of Exam: Sex: F : [...] the caroti d bulbs and proxim al cisco certified internetwork expert al caroti d arteri es there is minima l plaque withou t hemody namica lly signif icant stenos is eviden t. Both cisco certified internetwork expert al caroti d arteri es are demons trated to be patent in the upper neck and skull base- caroti d canals . Silver Recovery Operator ior circul ation: Both verteb ral arteri [...] Brain W: Anteri or circul ation: Both cisco certified internetwork expert al caroti d arteri es are patent [...] no aneury sms of these vessel s. Silver Recovery Operator ior circul ation: The basila r artery ascend s in the midlin e. Distal ly it gives off patent bilate ral superi or cerebe llar arteri es. Above this level the basila r artery termin ates as patent bilate ral top dyeing machine tender ior cerebr al arteri es. There is also top dyeing machine tender ior commun icatin g artery on the right side of the [place]. There is no eviden ce of aneury sm at the tip of the basila r artery nor elsewh ere in the [place] llis. CT BRAIN: There is no [...] facili ty are submit ander to the [facility] al Radiol ogy Data Regist ry (NRDR) Dose Index Regist ry (DIR) with the [employer] (ACR). RADIAT ION OPTIMI ZATION : All CT scans at this facili ty use at least one of these dose optimi zation techni ques: automa ander exposu re contro l; mA and/or kV adjust ment per patien t size (inclu hudson target ed exams where dose is matche d to clinic al indica tion); or iterat bharti recons tructi on. 608-0 016: Total DLP = 0.00 mGy-cm Ordere d By: Charlette Denton CC: ------ ------ ------ ------ ------ ------ ------ ------ ------ ------ ------ ------ ---- Dictat ed By: Tashi Sánchez M.D. 1441 144 Transc ribed By: [...] at the addres s above. Thank- you. [facility] [address], [facility] [place], [address] 11/29/2023 14:50:21 12/30/19 24 12/30/2023 elect steph beatty am No observ ation record ed. [address], [address], 12/30/2023 12:41:49 12/31/19 24 12/31/2023 rhyth m strip , EKG* No observ ation record ed. [email or web address] Not Available 12/31/2023 13:33:00 Result Notes None recorded. Problems Name Status Onset Date Resolution Date Notes Provider Name and Address Organization Details Recorded Time Hyperlipidemi a Active 2005 on repatha, statin intolerant MD [address], [place], [address] , [facility] 4 19:48:59 Rosacea Completed 200307/24/2023 Problem Code: L71.9; Problem Code Type: ICD-10; MD [address], [place], [address] , [facility] 19:37:39 Essential hypertension Active [address], [place], [address] , [facility] 4 19:38:21 Type 2 diabetes mellitus without [...] MD [address], [facility] [address] , [facility] 4 15:19:41 Allergic rhinitis Completed 201407/24/2023 09/26/2018 Problem Code: J30.9; Problem Code Type: ICD-10; Sameera Short simona, [facility] 4 12:27:18 Mild intermittent asthma Completed 201507/24/2023 Problem Code: J45.20; Problem Code Type: ICD-10; MD [address], [facility] [address] , [facility] 4 19:38:59 Acquired absence of cervix and uterus Completed 201507/24/2023 Problem Code: Z90.710; Problem Code Type: ICD-10; MD [address], 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 Statin [...] MD [address], [facility] [address] , [facility] 4 13:23:43 Disorder of skin and/or subcutaneous tissue Completed 201701/25/2018 Problem Code: L98.9; Problem Code Type: ICD-10; Not Available [facility] 3 04:19:16 Overflow incontinence of urine Completed 201807/24/2023 Problem Code: N39.490; Problem Code Type: ICD-10; MD [address], [facility] [address] , [facility] 4 19:37:43 Screening mammography Completed 201806/25/2023 Problem Code: Z12.31; Problem Code Type: ICD-10; MD [address], [place], [address] , [facility] 4 19:42:41 Hypercalcemia Active [address], [place], [address] , [facility] 4 19:40:41 Urge incontinence of urine Completed 201807/24/2023 Problem Code: N39.41; Problem Code Type: ICD-10; MD [address], [place], [address] , [facility] 4 19:40:30 History of recurrent pneumonia Completed 201802/14/2019 Problem Code: Z87.01; Problem Code Type: ICD-10; Not Available [facility] 3 04:19:17 Squamous cell carcinoma of skin of face Completed 201907/24/2023 11/29/2019 - Comments only - Franny Davison MD - she will be scheduled for surgery in the near future, recommending holding apixaban 3 days prior to procedure and then restarting, Problem Code: C44.320; Problem Code Type: ICD-10; MD [address], [place], [address] , [facility] 4 19:37:37 Major depression, single episode Completed 201907/24/2023 Problem Code: F32.9; Problem Code Type: ICD-10; MD [address], [place], [address] , [facility] 4 19:37:48 Adjustment disorder with mixed anxiety and depressed mood Completed 201907/24/2023 Problem Code: F43.23; Problem Code Type: ICD-10; MD [address], [place], [address] , [facility] 4 19:39:12 Neuropathy due to type 2 diabetes mellitus Active [address], [address] 4 19:48:19 Proteinuria Completed 202007/24/2023 Problem Code: R80.9; Problem Code Type: ICD-10; MD [address], [address] 4 19:38:51 Hyperparathyr oidism Active [address], [address] 19:40:21 Vitamin B deficiency Active [address], [address] 19:38:27 Chest pain Completed 202107/24/2023 Problem Code: R07.89; Problem Code Type: ICD-10; MD Regan [address], [address] 09:51:51 Essential tremor Active 2021 Stable MD [address], [address] 19:20:59 Abnormal involuntary movement Completed 202107/24/2023 Problem Code: R25.8; Problem Code Type: ICD-10; MD [address]an [address], [address] 19:36:57 Screening for cancer Completed 202106/25/2023 Problem Code: Z12.10; Problem Code Type: ICD-10; MD [address], [address] 4 13:23:13 Cough Completed 202106/13/2022 Problem Code: R05.8; Problem Code Type: ICD-10; Not Available [facility] 3 04:19:19 Anesthesia of skin Completed 202206/25/2023 Problem Code: R20.0; Problem Code Type: ICD-10; MD Regan [address], [address] 13:23:29 Ventricular tachycardia Completed 202207/24/2023 Problem Code: I47.20; Problem Code Type: ICD-10; MD Regan [address], [address] 19:37:02 Kidney stone Completed 202207/24/2023 Problem Code: N20.0; Problem Code Type: ICD-10; MD Regan [address], [address] 19:40:33 Syncope and collapse Completed 202207/24/2023 Problem Code: R55; Problem Code Type: ICD-10; MD Regan [address], [address] 19:38:44 History of disorder of digestive system Completed 202207/24/2023 Problem Code: Z87.19; Problem Code Type: ICD-10; MD [address], [address] 4 19:40:17 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 MD [address], [facility] [address] [place] [address] 4 19:47:04 Ulcer of duodenum Completed 202207/24/2023 Problem Code: K26.9; Problem Code Type: ICD-10; MD Regan [address], [address] 4 19:37:54 Hemorrhagic esophagitis Completed 202207/24/2023 Problem Code: K20.91; Problem Code Type: ICD-10; MD Regan [address], [address] 4 19:38:17 Acute posthemorrhag ic anemia Completed 202207/24/2023 Problem Code: D62; Problem Code Type: ICD-10; MD Regan [address], [address] 4 19:37:07 Hypertrophic cardiomyopath y Active [address], [address] 4 19:58:46 Urinary tract infectious disease Completed 201805/08/2019 Problem Code: N39.0; Problem Code Type: ICD-10; Not Available [facility] 3 04:19:23 Right lower quadrant pain Completed 201810/23/2019 Problem Code: R10.31; Problem Code Type: ICD-10; Not Available [facility] 3 04:19:23 Screening for osteoporosis Completed 201705/07/2022 Problem Code: Z13.820; Problem Code Type: ICD-10; Not Available [facility] 3 04:19:23 Breast composition Completed 201404/14/2016 Not Available [facility] 3 04:19:24 Parkinson's disease Completed 202102/03/2022 Problem Code: G20; Problem Code Type: ICD-10; Not Available [facility] 3 04:19:24 Diarrhea Completed 201805/07/2022 Problem Code: R19.7; Problem Code Type: ICD-10; Not Available [facility] 3 04:19:24 Chorea Completed 202004/10/2021 Problem Code: G25.5; Problem Code Type: ICD-10; Not Available [facility] 3 04:19:24 Blood chemistry outside reference range Completed 201609/24/2022 Problem Code: R79.89; Problem Code Type: ICD-10; Not Available [facility] 3 04:19:24 Dyspnea Completed 201810/23/2019 Problem Code: R06.02; Problem Code Type: ICD-10; BHARATH JETT MD [address] [address] , [facility] 4 19:42:49 Chest pain Completed 202004/10/2021 Problem Code: R07.89; Problem Code Type: ICD-10; MD [address]an [address] 4 09:51:51 Bleeding from nose Completed 201606/29/2017 Problem Code: R04.0; Problem Code Type: ICD-10; Not Available [facility] 3 04:19:25 Hyperglycemia due to type 2 diabetes mellitus Completed 201504/14/2016 Problem Code: E11.65; Problem Code Type: ICD-10; Not Available [facility] 3 04:19:26 Upper respiratory tract infection caused by Influenza A Completed 202109/08/2022 Problem Code: J09.x2; Problem Code Type: ICD-10; Not Available [facility] 3 04:19:26 Hypertensive disorder Completed 200603/17/2023 Not Available [facility] 3 04:19:26 Type 2 diabetes mellitus Completed 200503/17/2023 Not Available [facility] 3 04:19:27 Adult health examination Completed 201605/19/2017 Problem Code: Z00.00; Problem Code Type: ICD-10; Not Available [facility] 3 04:19:27 Exposure to communicable disease Completed 202011/26/2020 Problem Code: Z20.9; Problem Code Type: ICD-10; Not Available [facility] 3 04:19:27 Bilateral earache Completed 201705/09/2018 Problem Code: H92.03; Problem Code Type: ICD-10; Not Available [facility] 3 04:19:27 Chest pain Completed 202111/03/2021 Problem Code: R07.9; Problem Code Type: ICD-10; MD [address]an [address], [facility] [address] [address] 4 09:51:51 Increased frequency of urination Completed 201502/03/2022 Problem Code: R35.0; Problem Code Type: ICD-10; Not Available [facility] 3 04:19:28 Acute urinary tract infection Completed 202206/25/[address], [facility] [address] [place] [address] 4 13:23:38 Muscle weakness Active 2022 TORY FERGUSON RN [facility], [facility] 3 12:36:18 Screening mammography Completed 201507/24/2023 Problem Code: Z12.31; Problem Code Type: ICD-10; MD [address]an [address], [facility] [address] [place] [address] 4 19:42:41 Generalized skin eruption caused by drug and medicament Completed 202207/24/2023 Problem Code: L27.0; Problem Code Type: ICD-10; MD Regan [address], [address] 19:42:34 Candidiasis of vulva Completed 202207/24/[address], [address] 19:40:45 Automatic implantable cardiac defibrillator in situ Active 2022 [employer] Bi-V ICD. Placed 11/2022 at [facility] MD [address], [address] 19:44:34 Dizziness and giddiness Active 2022 Problem Code: R42; Problem Code Type: ICD-10; MD Regan [address], [address] 19:42:51 Dyspnea Completed 202207/24/2023 Problem Code: R06.09; Problem Code Type: ICD-10; MD Regan [address], [address] 19:42:49 Red blood cell finding Completed 202207/24/2023 Problem Code: R71.8; Problem Code Type: ICD-10; MD Regan MCGEE Dr, [address] 19:42:46 Vulval and/or perineal noninflammato ry disorders Completed 202207/24/2023 Problem Code: N90.89; Problem Code Type: ICD-10; MD Regan MCGEE Dr, [address] [facility] 4 19:42:37 Dysuria Completed 202207/24/2023 Problem Code: R30.0; Problem Code Type: ICD-10; MD Regan MCGEE Dr, [place] [id number] , [facility] 4 19:43:56 Atheroscleros is of coronary artery without angina pectoris Active 2022 s/p HUDSON to RCA MD Regan MCGEE Dr, [place] [address] , [facility] 19:43:[address] Paredes monitoring, concern for Parkinsism, Jay scan 11/09 negative. 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 MD Regan MCGEE Dr, [facility] [address] , [facility] 19:46:00 Paroxysmal atrial fibrillation Active [address], [facility] [address] , [facility] 19:46:19 Heart failure with normal ejection fraction Active 2023 NYHA stage 3. Followed by [facility] cardiology, Carlos Ha NP, MD Regan [address], [place], [address] , [facility] 4 19:53:02 Dilated cardiomyopath y Active [address], [facility] [address] , [facility] 4 19:46:57 Type II diabetes mellitus uncontrolled Active [address], [facility] [address] , [facility] 4 19:47:49 Type 2 diabetes mellitus without [...] Code Type: ICD-10; MD Regan MCG[address] Dr, [place], [address] , [facility] 4 15:19:41 Recurrent urinary tract infection Active 2023 Sameera jarvis, [facility] 4 12:36:35 Memory impairment Active 2023 Sameera jarvis, [facility] 4 12:36:32 Hemiplegia and/or hemiparesis following stroke Active [address], [place], [address] , [facility] 4 07:09:33 Actinic keratosis Active [address], [place], [address] , [facility] 4 07:32:48 Tremor Active 2023 FILOMENA GREGG MA null, [facility] 4 10:14:28 Neuropathic pain Active 2023 FILOMENA GREGG MA null, [facility] 4 10:14:50 Cervical radiculopathy Active 2023 FILOMENA GREGG MA null, [facility] 4 10:15:16 Sciatica Active 2023 FILOMENA GREGG MA null, [facility] 4 10:15:27 Impairment of balance Active 2023 FILOMENA GREGG MA null, [facility] 4 10:16:14 Neuropathy Active [address], [facility] [address] , [facility] 4 11:01:37 Overweight Active [address], [facility] [address] , [facility] 4 09:42:35 Dyspnea on exertion Active [address], [facility] [address] , [facility] 4 09:42:35 Chest pain Active 2023 Problem Code: R07.89; Problem Code Type: ICD-10; MD Regan MCGEE Dr, [facility] [address] , [facility] 4 09:51:51 Problem Notes None recorded. Procedures Surgical History Date Name Laterality Status Provider Name and Address Organization Details Recorded Time 12/09/19 endovascular insertion of drug eluting stent completed MD Regan MCGEE Dr, [facility] [address], [facility] 07/24/2023 19:50:55 01/20/20 13 Hysterectomy completed BHARATH JETT MD [address], [place], [address], [facility] 07/24/2023 19:39:58 Imaging Results Imaging Date Name Status LastModified by Organization Details LastModified Time 10/05/2023 ICD interrogation, in-person (PROC) [facility] [address], [place], [address], 10/06/2023 09:44:46 11/28/2023 vrad report completed [address] [place], [address] 11/29/2023 09:49:12 11/28/2023 vrad report completed [address] [place], [address] 11/29/2023 09:49:13 11/28/2023 vrad report completed [address] [place], [address] 11/29/2023 09:49:13 11/29/2023 x-ray imaging report completed [facility] Stevan [address] [place], [address] 11/29/2023 09:49:14 11/29/2023 CT imaging report completed [address] [place], [address] 11/29/2023 14:50:21 12/30/2023 electrocardiogram completed [address], [address], 12/30/2023 12:41:49 12/31/2023 rhythm strip, EKG* [facility] Inform ation not available 12/31/2023 13:33:00 Procedure Notes None recorded. Medical Equipment None Reported. Allergies Allergen ID Allergen Name Allergen Category Reaction Reaction Severity Criticality Documentation Date Start Date Code Code System Note Provider Name and Address Organization Details Recorded Time 15256 Iodinated contrast media (substanc e) medicatio n Not available Not available Not available 04/30/20232002 65818 2004 SNOMED Aller gyNam e: 'IVP DYE'; Not Available [facility] 3 16:31:18 30579 Product containin g 3-hydroxy -3-methyl glutaryl- coenzyme A reductase inhibitor (product) medicatio n Not available Not available Not available 04/30/20232017 42546 009 SNOMED Not Available [facility] 3 16:31:19 36963 lisinopri l medicatio n cough mild Not available 04/30/20232015 48356 RxNorm cough Aller gyCod e: '3140 76'; Aller gyNam e: 'SARAH NOPRI L'; Aller gyCon ceptT ype: 'RX Norm' ; Not Available [facility] 3 16:31:19 53268 Zetia medicatio n myalgias (muscle pain) mild Not available 04/30/20232006 47389 9 RxNorm MYALG IA Not Available [facility] 3 16:31:20 25710 Plaquenil medicatio n myalgias (muscle pain) mild Not available 04/30/20232006 79267 2 RxNorm MYALG IA Not Available [facility] 3 16:31:20 13580 Cozaar medicatio n Not available Not available Not available 04/30/20232004 57040 8 RxNorm Not Available [facility] 3 16:31:20 89721 atenolol medicatio n cough mild low 05/05/20232022 1202 RxNorm [facility]. 3 12:16:33 58705 acetamino phen / oxycodone medicatio n rash moderate high 05/05/20232022 40614 3 RxNorm [facility]. 3 12:17:17 79460 Plavix medicatio n rash severe high 05/05/20232022 80960 2 RxNorm BHARATH JETT MD [address], [place], [address] , [facility] 4 19:41:48 89588 ticagrelo r medicatio n abdominal pain severe Not available 07/02/20232022 15664 32 RxNorm Aller gyRea ction : 'Carlos Manuel roint estin al,'; Aller gyNam e: 'ILA GRELO R'; Not Available [facility] 4 05:10:26 93671 aspirin medicatio n Not available Not available [facility] 07/23/2023 1191 RxNorm GI bleed BHARATH JETT MD [address], [place], [address] , [facility] 4 19:41:13 51388 Jardiance medicatio n Not available Not available [facility] 07/24/2023 02150 59 RxNorm recur rent yeast infec tions and UTIs BHARATH JETT MD [address], [place], [address] , [facility] 4 19:42:15 Medications Name Sig Start Date [...] tab by mouth daily 05/10 completed per [facility] endocrin ology Not Available Not Available Not [...] once a day 11/17 completed started at [facility] discharg e followin g recurren t TIA [...] for nausea and vomiting 11/17 completed Per [facility] ED 11/02/22 Not Available Not Available Not [...] with humalog pen if preferre d by [facility] e ID# [id number] Not Available Not Available Not Available [...] cap by mouth twice daily 01/24 completed [facility] discharg e Not Available Not Available [...] subcutan eously once a week 04/05 completed CV Not Available Not Available Not Available Ozempic [...] Available Not Available No t Available FreeStyle Melanie 2 Sensor kit 11/07 completed Not Available Not Available Not Available Ozempic 1 mg/dose (4 mg/3 mL) subcutane ous pen injector Inject by subcutan eous route. 06/25 completed Not Available Not Available Not Available Ozempic 2 mg/dose (8 mg/3 mL) subcutane ous pen injector Inject 2 mg every week by subcutan eous route. active Not Available Not Available No t Available FreeStyle Melanie 3 Sensor device Change sensor every 14 days active Not Available Not Available No t Available Ozempic 0.25 mg or 0.5 mg (2 mg/3 mL) subcutane ous pen injector INJECT 0.25 MG UNDER THE SKIN ONCE A WEEK FOR 4 WEEKS THEN DIRECTED 06/04 completed Not Available Not Available Not Available FreeStyle Melanie 3 Anderson Use as directed active Not Available Not Available No t Available Vitals Date Recorded Body height Body mass index (BMI) Body weight Heart rate Oxygen saturation Oxygen saturation in Arterial blood by Pulse oximetry Body temperature Respiratory rate Systolic blood pressure Diastolic blood pressure Provider Name and Address Organization Details Last Updated DateTime 4 162.56 cm 26.8 kg/m2 24563.4 1 g 82 /min 98 % 98 % 97.9 [degF] 18 /min 126 mm[Hg] 70 mm[Hg] FILOMENA GREGG [facility]. 4 15:14:23 Date Recorded Body height Body mass index (BMI) Body weight Body temperature Oxygen saturation Oxygen saturation in Arterial blood by Pulse oximetry Heart rate Respiratory rate Systolic blood pressure Diastolic blood pressure Provider Name and Address Organization Details Last Updated DateTime 4 162.56 cm 26.6 kg/m2 35753.8 2 g 97.9 [degF] 96 % 96 % 73 /min 16 /min 140 mm[Hg] 76 mm[Hg] FILOMENA GREGG MA [facility], [facility]. 4 15:19:29 Date Recorded Body height Body mass index (BMI) Body weight Body temperature Oxygen saturation Oxygen saturation in Arterial blood by Pulse oximetry Heart rate Systolic blood pressure Diastolic blood pressure Provider Name and Address Organization Details Last Updated DateTime 4 162.56 cm 26.8 kg/m2 76909.4 1 g 97.8 [degF] 97 % 97 % 71 /min 118 mm[Hg] 70 mm[Hg] FILOMENA GREGG MA [facility], [facility] 4 14:04:28 Date Recorded Body height Body mass index (BMI) Body weight Body temperature Oxygen saturation Oxygen saturation in Arterial blood by Pulse oximetry Heart rate Systolic blood pressure Diastolic blood pressure Provider Name and Address Organization Details Last Updated DateTime 4 162.56 cm 26.9 kg/m2 17641 g 97.8 [degF] 96 % 96 % 101 /min 140 mm[Hg] 86 mm[Hg] FILOMENA GREGG MA [facility], [facility] 4 08:25:36 Date Recorded Body height Body mass index (BMI) Body weight Body temperature Oxygen saturation Oxygen saturation in Arterial blood by Pulse oximetry Heart rate Systolic blood pressure Diastolic blood pressure Provider Name and Address Organization Details Last Updated DateTime 4 162.56 cm 23.7 kg/m2 13534.7 5 g 97.1 [degF] 97 % 97 % 70 /min 130 mm[Hg] 72 mm[Hg] PHYLLIS CARRASCO MA [facility], [facility] 4 09:08:21 Social History Question Answer Notes LastModified by Organizat ion Details LastModified Time Tobacco Smoking Status Never Smoker PHYLLIS CARRASCO MA [facility], [facility], [facility] 05/05/2023 13:38:34 What Is Your Level Of Alcohol Consumption? None Information not available 05/05/2023 Date Care Plan Printed: 08/12/2023 First Printed 04/26/23 (old System) Information not available 08/12/2023 Assigned Retail Advertising Executive: Leisa Segovia Information not available 08/12/2023 Is [facility] The Lead Retail Advertising Executive? Yes Information no t available 08/12/2023 Level [...] illness Medical History Condition Response Neurologic Disorder Heart Disease Y Gastrointestinal Disease Gynecological HistoryNo gynecological history recorded. Obstetrics History GPAL:G 0 P 0 0 0 0 Immunizations Vaccine Type Date Status Provider Name and Address Organization Details Recorded Time Td (adult), 2 Lf tetanus toxoid, preservative free, adsorbed 08/05/2021 completed Not Available [facility] 04/30/2023 05:10:29 Tdap 12/18/2011 completed Not Available [facility] 05:10:29 zoster live 07/12/2012 completed Not Available [facility] 04/30/2023 05:10:29 Pneumococcal conjugate PCV 13 06/29/2017 completed Not Available [facility] 04/30/2023 05:10:29 Influenza, high-dose, trivalent, PF 05/09/2018 completed Not Available [facility] 04/30/2023 05:10:29 Td(adult) unspecified formulation 10/01/2005 completed Not Available [facility] 04/30/2023 05:10:30 Td(adult) unspecified formulation 12/18/2011 completed Not Available [facility] 04/30/2023 05:10:30 Td(adult) unspecified formulation 04/06/1996 completed Not Available [facility] 04/30/2023 05:10:30 Influenza, split virus, trivalent, preservative 03/13/2015 completed Not Available [facility] 04/30/2023 05:10:30 Influenza, split virus, trivalent, preservative 04/14/2016 completed Not Available [facility] 04/30/2023 05:10:30 Influenza, split virus, quadrivalent, preservative 04/27/2017 completed Not Available [facility] 04/30/2023 05:10:31 Influenza, MDCK, quadrivalent, PF 05/08/2019 completed Not Available [facility] 04/30/2023 05:10:32 Influenza, high-dose, quadrivalent, PF 04/21/2022 completed Not Available [facility] 04/30/2023 05:10:32 COVID-19, mRNA, LNP-S, PF, 100 mcg/0.5mL dose or 50 mcg/0.25mL dose 11/03/2021 completed Not Available [facility] 04/30/2023 05:10:32 COVID-19, mRNA, LNP-S, PF, 30 mcg/0.3 mL dose 08/19/2020 completed Not Available [facility] 04/30/2023 05:10:32 COVID-19, mRNA, LNP-S, PF, 30 mcg/0.3 mL dose 09/16/2020 completed Not Available [facility] 04/30/2023 05:10:32 COVID-19, mRNA, LNP-S, PF, 30 mcg/0.3 mL dose 04/10/2021 completed Not Available [facility] 04/30/2023 05:10:33 COVID-19, mRNA, LNP-S, bivalent, PF, 30 mcg/0.3 mL dose 05/07/2022 completed Not Available [facility] 04/30/20 05:10:33 pneumococcal polysaccharide PPV23 09/26/2018 completed Not Available [facility] 2022 05:10:34 pneumococcal polysaccharide PPV23 04/06/1996 completed Not Available [facility] 2022 05:10:34 influenza, unspecified formulation 03/04/2020 completed Not Available [facility] 04/30/2023 05:10:34 Influenza, high-dose, quadrivalent, PF 03/05/2023 completed Not Available [facility] 07/02/2023 05:30:45 COVID-19, mRNA, LNP-S, PF, arthur-sucrose, 30 mcg/0.3 mL 03/25/2023 completed Not Available [facility] 07/02/2023 05:30:45 Past Encounters Encounter ID Performer Location Encounter Start Date Encounter Closed Date Diagnosis/Indication Diagnosis SNOMED-CT Code [id number] GRETCHEN RAMAN MD [address] [address] 05/05/2023 13:20:35 05/05/2023 13:57:54 Overflow incontinence of urine 682092456 Acute urin georgina tract infection 944803854 [id number] BHARATH JETT MD [address] [address] 06/25/2023 10:10:16 06/25/2023 12:13:36 Type 2 diabetes mellitus without complication 566443750 Hyperlipidemia 88674657 [id number] BHARATH JETT MD [address] [address] 07/23/2023 10:26:38 07/23/2023 12:08:42 Dizziness and giddiness 197161552 Type 2 bob betes mellitus without complication 588350844 Hyperlipidemia 39057185 [id number] BHARATH JETT MD [address] [address] 08/23/2023 14:59:40 08/23/2023 15:57:14 Type II diabetes mellitus uncontrolled 609194161 Dilated cardiomyopathy 127429567 Hyperlipidemia 74672625 Atheroscle rosis of coronary artery without angina pectoris 551936171601592 [id number] BHARATH JETT MD [address] [address] 10/04/2023 15:05:30 10/04/2023 16:32:57 Type II diabetes mellitus uncontrolled 499583769 Memory impairment 296539 540 [id number] BHARATH JETT MD [address] [address] 11/03/2023 13:46:57 11/03/2023 14:49:28 Type II diabetes mellitus uncontrolled 363870891 Heart fail ure with normal ejection fraction 720854379 Hemiplegia and/or hemiparesis following stroke 20208966215201 Bradykinesia 014016399 Memory impairment 043761 006 Actinic keratosis 635450 624 [id number] BHARATH JETT MD [address] [address] 12/06/2023 08:09:33 12/06/2023 09:15:34 Neuropathy 752897208 [id number] BHARATH JETT MD [address] [address] 12/30/2023 08:53:35 12/30/2023 10:43:36 Type II diabetes mellitus uncontrolled 257623154 Overweight 541508162 Dyspnea on exertion 6084 5006 Goals Section Goal Description Status Start Date [...] by Organization Details LastModified Time None Recorded Advance Directives Directive None Recorded Payers Encounter Date Sequence Insurance Name Policy Number Policy Acharya Covered Member ID Acharya Member ID Guarantor Name 08/23/2023 1 [facility] (MEDICARE REPLACEMENT/A DVANTAGE - PPO) [id number] Joanna M Tanner [id number] Joanna M Tanner 10/04/2023 1 [facility] (MEDICARE REPLACEMENT/A DVANTAGE - PPO) [id number] Joanna M Tanner [id number] Joanna M Tanner 11/03/2023 1 [facility] (MEDICARE REPLACEMENT/A DVANTAGE - PPO) [id number] Joanna M Tanner [id number] Joanna M Tanner 12/06/2023 1 [facility] (MEDICARE REPLACEMENT/A DVANTAGE - PPO) [id number] Joanna M Tanner [id number] Joanna M Tanner 12/30/2023 1 [facility] (MEDICARE REPLACEMENT/A DVANTAGE - PPO) [id number] Joanna M Tanner [id number] Joanna M Tanner Notes Date Note Type Note Provider Name and Address Organization Details Recorded Time 08/23/2023 text/html HPI Notes: Edema . Noticed swelling in her legs at the end of the day recently. Weight is up a bit but not dramatically so. No orthopnea. Diabetes - Reviewed freestyle results on her device and she is consistently in the 200s. Initially stated she had started the humalog but on further discussion she has been taking it at night, not prior to meals. Dizziness - Improved. Drinking a lot of water. Standing up slowly, Counting to 7 before standing. Going to cardiac rehab. Really enjoys this. Cardiac - no CP or sig SOB. Has cardiology follow up soon. Has tony lucas, [employer] is working on helping her learn how to use this. MD Regan [address], [place], [address], [facility]. 08/23/2023 16:37:27 10/04/2023 text/html HPI Notes: Cristino martinez and Kenneth present in follow-up mainly to discuss her diabetes. We reviewed her freestyle readings. She is in range less than 50% of the time. The rest of the time, she is high. She has had no lows. She states that the mealtime insulin continues to be tricky to remember to take. She is having some memory challenges that make this difficult. Kenneth is not always around to remind her. There is some variability to her glucose readings. Today, her glucose has been within range. At other days, she has spent the entire day above range. She can find no rhyme or reason for why this might be. She does also forget to scan her freestyle reader sometimes. She is graduating cardiac rehab but plans to continue paying [id number] to keep going. She has really enjoyed this. She has had no cardiac symptoms. She has a cardiology follow-up coming up. She has impaired memory. She has seen neurology for this. Medication was suggested but she has been hesitant to add more medications to her regimen and is concerned for side effects. We reviewed the PHQ-9 that cardiac rehab sent me, that is concerning for depression. She does not wish to discuss this or have this treated right now. MD Regan [address]CG[address] Dr, [place], [address], [facility], [facility]. 10/05/2023 14:54:02 11/03/2023 text/html HPI Notes: Cristino martinez and Kenneth present in follow-up mainly to discuss her diabetes. We reviewed her freestyle readings. She has had marked improvement in the numbers we do have. She has not been checking at night it seems. Her A1c has improved drastically. Kenneth has been constantly reminding her to check her glucose and take her insulin. He states she gets snappy with him at times for this. She tells me today she doesn't really mind him doing this. She has a freestyle melanie 3 that she just received. Plans to use up the melanie 2 supplies before starting this. No hypoglycemia. She needs a new eye doctor. She has graduated cardiac rehab but continues to pay [id number] to keep going. She has really enjoyed this. She has had no cardiac symptoms. She takes tiny steps when walking, is afraid of falling. Has a hard time getting off the ground. Walks and bikes at cardiac rehab but no significant strength training. Neuro had commented on slow movement and raised the question of parkinsonism. She had a negative JAY scan in 2021. She has impaired memory. She has seen neurology for this. Medication was suggested but she has been hesitant to add more medications to her regimen and is concerned for side effects. She thinks she is getting more confused. Memory started to really worsen after her cardiac events of last summer. Plan to do MOCA at next visit. She thinks she sleeps ok, does take naps during the day. Neuro had suggested sleep study. She doesn't think she would tolerate treatment. Saw ENT recently. Started on efudex, 2 AKs remain on hand, can do cryotherapy at next appointment. BHARATH JETT MD [address], [place], [address], [facility]. 11/04/2023 07:33:39 12/06/2023 text/html HPI Notes: Cristino martinez presents for hospital f/u. She was admitted to [facility] from 11/27-11/29/23 for stroke rule out. 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 She has [...] Has not yet taken her morning medications. MD Regan [address], [place], [address], [facility]. 12/06/2023 11:09:04 12/30/2023 text/html HPI Notes: Cristino martinez and [...] 90% stenosis of RCA found on angiography. [facility] completed 12/08/22 with successful RCA stenting. - HCM severe asymmetric hypertrophy of LV with septal thickness 1.7 cm. ACC Stage C, NYHA III HFpEF - NSVT. s/p Medtronic Bi-V ICD implant. - PAF. 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 MD Regan [address], [place], [address], [facility]. 12/30/2023 10:50:17 OBGyn Episode No OBEpisode recorded.
--- OUTSIDE RECORDS SUMMARY | 2024-01-12 11:18 | XMS_ITS | Referral Summary ---
Author Organization [facility] Address [address] [place] [address] Care Team Providers Care Manager Loss Prevention Name Role Phone Carlos Ha SLITTER PROCESSED FILM Unavailable [phone] Elba Jett MD Primary Care Provider [phone] Encounters Date Type Department Care Team Description 12/13/2023 Lab Requisition [facility] Pathology & Laboratory Medicine - [facility] [address], [place] [id number] Outr Resulting Lab, Provider from Last 3 [...] 05/18/2023 Propoxyphene N-Acetaminophen 01/27/2011 Other reaction(s): Hallucinations Mlydycp-Nkj-Asj Reductase Inhibitors 01/18/2020 Dulaglutide 07/10/2020 Gi Side effect Medications Medication Sig Dispensed Refills Start Date End Date Status lancets/blood glucose strips ([facility] TOUCH [facility]) -to test blood sugar - twice daily [...] hyperglycemia, with long-term current use of insulin ([facility]) [place] [facility] [place] t be different from the original. 2021-09-16 [facility] MGP Verbal BRUNA: permission to speak with Lefty Gomez Tanner (.) Patient has given permission for [facility] to verbally discuss the following information with [...] if rash returns. PAF (paroxysmal atrial fibrillation) ([facility]) 0 02/16/2023 ASCVD (arteriosclerotic cardiovascular disease) 12/08/2022 Chronic heart failure with p reserved ejection fraction ([facility]) 12/01/2022 AVB (atrioventricular block) 11/24/2022 Gastrointestinal hemorrhage 11/11/2022 Fatigue 12/04/2020 Last Assessment & Plan: ?cardiac vs orthostatic hypotension vs glucose regulation. Has upcoming ECHO scheduled. Discussed checking BP at home with lightheadedness. Has upcoming visit with PCP for further w/up. Will reach out to merchandising intern as well. We did discuss giving her body time to adjust to BG's normalizing, did lower lantus and humalog today. Osteopenia after menopause 10/02/2020 Last Assessment & Plan: Get updated DEXA scan at same clinic [facility]. Ordered faxed. Request disk of images to bring to next visit. Continue with DEXA every 2 years. Hypercalcemia 10/02/2020 Last Assessment & Plan: Stable. Primary hyperparathyroidism ([facility]) 10/02/2020 Last Assessment & Plan: Encouraged to increase hydration 5-6 bottles water/day, this can include tea/crystal light. Will check calcium levels yearly, more often with change in kidney function. Stage 3b chronic kidney disease ([facility]) 2020 Last Assessment & Plan: Stable. Dilated cardiomyopathy ([facility]) 02/23/2020 Last Assessment & Plan: Improved EF on echo 11/2020 (55%) Ventricular tachycardia ([facility]) 11/23/2019 Last Assessment & Plan: No [...] current dose of Repatha Cerebrovascular accident (CVA) ([facility]) Current use of nursing home 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 Last Assessment & Plan: Patient is taking and tolerating apixaban without overt signs of bleeding. Will check labs including renal function today. 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 is taking and tolerating Eliquis without overt signs of bleeding Essential hypertension 06/01/2019 Last Assessment & Plan: Relatively well controlled Paroxysmal atrial fibrillation ([facility]) Last Assessment & Plan: She is appropriately anticoagulated for stroke risk reduction. Diabetes mellitus, type 2 ([facility]) 01/26/2011 Overview: On metformin On metformin [...] persistently or elevations >200. MALB today. Given [facility] HAP program info to see if qualifies. Rosacea 01/26/2011 Overview: previously on Elidel previously on Elidel Duodenal erosion Esophagitis Blood loss anemia Hypertrophic cardiomyopathy ([facility]) Edema of right lower extremity Resolved Problems Problem Noted Date Diagnosed Date Resolved Date NSTEMI (non-ST elevated myoc ardial infarction) ([facility]) 12/02/2022 01/05/2023 Elevated troponin 11/24/2022 01/05/2023 [...] 11/14/2022 NSTEMI (non-ST elevated myoc ardial infarction) ([facility]) 12/07/2022 Chest pain 01/05/2023 Social History Tobacco [...] Ancillary Procedure [facility] Cardiology - [facility] [address] [place] [address] 03/08/2024 10:15 EDT Ancillary Procedure [facility] Cardiology - [facility] [address] [place] [address] 04/05/2024 10:00 EDT Ancillary Procedure [facility] [address] [place] [phone] 04/05/2024 10:00 EDT Office Visit [facility] [address] [place] [phone] Carlos Ha NP [address] [place] [address]- [address] [place] [phone] Medical Devices Implanted Type Area Break Up Worker Device Identifier Shelf Expiration Date Model / Serial / Lot Defibrillator Multi Chamber Peanut Blancher D Mri Comp [id number] Amplia [id number] - [id number] Implanted:Qty: 1 on 03/15/2023 by Lefty Moss MD at [facility] ICD Left: Chest [employer] [id number] 05/04/2024 [id number] / [id number] 3S / Cardiac Lead Icd Tripolar Endocardium [id number] Sprint Quattro [id number] - [id number] Implanted:Qty: 1 on 03/15/2023 by Lefty Moss MD at [facility] Lead Left: Heart [employer] [id number] 10/28/2024 [id number] 5 / [id number] 7V / Lead Pacemaker Endocardial Biplr Act Fixtn [id number] Selectsecure [id number] - [id number] Implanted:Qty: 1 on 03/15/2023 by Lefty Moss MD at [facility] Lead Left: Heart [employer] [id number] 01/19/2025 3830-6 9C M / [id number] 3V / Lead Pacemaker Endocardial Biplr Act Fixtn [id number] Capsurefix Novus [id number] - [id number] Implanted:Qty: 1 on 03/15/2023 by Lefty Moss MD at [facility] Lead Left: Heart [employer] [id number] 07/09/2024 5076-4 5 / [id number] 2V / Stent System 3.50mm X 33mm Rapid Exchange Xience Skypoint Everolimus Eluting Coronary - [id number] Implanted:Qty: 1 on 12/08/2022 by Edgardo Ha MD at [facility] Stent Right: Coronary [employer] [id number] / / Description:Mid RCA Procedures Procedure [...] HEMOGLOBIN A1C Routine 11/11/2022 13:24 EDT URINE [id number] RATIO (ACR) Routine 08/05/2021 15:07 EST Type 2 diabetes mellitus with hyperglycemia, with long-term current use of insulin ([facility]) ([facility]) from Last 3 Months or Most Recently Relevant to Health Maintenance Results * (ABNORMAL) SPEP, INCLUDES QUANTITATION OF MONOCLONAL SPIKE PERFORMABLE (12/13/2023 9:14 EDT) Albumin % 60.0 55.8 - 66.1 % 12/14/2023 12:34 [facility] Albumin g/dL 3.8 3.6 - 5.2 g/dL 12/14/2023 12:34 [facility] Alpha-1 % 4.9 2.9 - 4.9 % 12/14/2023 12:34 [facility] Alpha-1 g/dL 0.30 0.15 - 0.40 g/dL 12/14/2023 12:34 [facility] Alpha-2 % 11.4 7.1 - 11.8 % 12/14/2023 12:34 [facility] Alpha-2 g/dL 0.70 0.50 - 1.00 g/dL 12/14/2023 12:34 [facility] Beta % 13.4(H) 8.4 - 13.1 % 12/14/2023 12:34 [facility] Beta g/dL 0.80 0.60 - 1.20 g/dL 12/14/2023 12:34 [facility] Gamma % 10.3(L) 11.1 - 18.8 % 12/14/2023 12:34 [facility] Gamma g/dL 0.60 0.60 - 1.60 g/dL 12/14/2023 12:34 [facility] SPEP Comment No apparent monoclonal protein seen on serum electrophoresis 12/14/2023 12:34 [facility] Comment:See scanned/suppleme ntary report. Total Protein 6.3 6.3 - 8.2 g/dL 12/14/2023 12:34 [facility] Blood VENOUS BLOOD / Unknown 12/13/2023 9:14 EDT 12/13/2023 17:12 EDT Provider Outr Resulting Lab CHEMISTRY & BLOOD GAS ORDERABLES Performing Organization Address [facility] Co de Phone Number [facility] [address] [place] [address] * LYME AB (12/13/2023 9:14 EDT) Pathologist [facility] Lyme Ab Negative Negative 12/14/2023 13:36 EDT [facility] Blood VENOUS BLOOD / Unknown 12/13/2023 9:14 EDT 12/13/2023 17:12 EDT Provider Outr Resulting Lab IMMUNOLOGY A ND SEROLOGY ORDERABLES Performing Organization Address [facility] de Phone Number [facility] [address] [place] [phone] * PROTEIN, TOTAL (12/13/2023 9:14 EDT) Blood VENOUS BLOOD / Unknown 12/13/2023 9:14 EDT 12/13/2023 17:12 EDT Provider Outr Resulting Lab CHEMISTRY & BLOOD GAS ORDERABLES Performing Organization Address [facility] de Phone Number [facility] [address] [place] [phone] * (ABNORMAL) LIPID PROFILE (INCLUDES CHOLESTEROL, TRIGLYCERIDES, HDL, LDL) (12/03/2022 23:53 EDT) [facility] Cholesterol 107 <200 mg/dL 12/04/2022 0:16 EDT [facility] Comment:Note that therapeuti c goals will differ between patients based on cardiac risk factors and current medical therapy. HDL 40(L) >=50 mg/dL 12/04/2022 0:16 T [facility] Comment:Note that therapeuti c goals will differ between patients based on cardiac risk factors and current medical therapy. LDL, Calculated 29 <160 mg/dL 0:16 EDT [facility] Comment:Note that therapeuti c goals will differ between patients based on cardiac risk factors and current medical therapy. Triglyceride 188(H) <=150 mg/dL 12/04/2022 0:16 EDT [facility] Comment:Note that therapeuti c goals will differ between patients based on cardiac risk factors and current medical therapy. Chol/HDL Ratio 2.7 See Note 12/04/2022 0:16 EDT [facility] Comment:No reference range h as been established for CHOL/HDL ratio. Non HDL Cholesterol 67 <160 mg/dL 12/04/2022 0:16 EDT [facility] Comment:Note that therapeuti c goals will differ between patients based on cardiac risk factors and current medical therapy. Blood VENOUS BLOOD / Unknown Venipuncture / Unknown 12/03/2022 23:53 EDT 12/04/2022 0:00 EDT Darion Tinajero MD CHEMISTRY & BLOOD GA S ORDERABLES Performing Organization Address [facility] de Phone Number [facility] [address] [place] [phone] * (ABNORMAL) HEMOGLOBIN A1C (11/11/2022 13:24 EDT) Hemoglobin A1c 7.1(H) <5.7 % 11/11/2022 16:36 EDT [facility] Comment: Glycemic Status References: Normal: ??<5.7% Pre-Diabetes: ??5.7% - 6.4% Diagnostic of Diabetes: ??> or = 6.5% (if confirmed) Est Avg Glucose 157 mg/dL 16:36 EDT [facility] Comment:The eAG represents t he A1c result expressed as average glucose in mg/dL. Blood VENOUS BLOOD / Unknown IV Draw / Unknown 11/11/2022 13:24 EDT 11/11/2022 13:35 EDT Stephon Sosa CHEMISTRY & BLOOD GA S ORDERABLES Performing Organization Address [facility] Co de Phone Number [facility] [address] [place] [address] * (ABNORMAL) URINE [id number] RATIO (ACR) (08/05/2021 15:07 EST) Albumin, Urine 47.2 See Note mg/dL 2021 18:46 EST [facility] Comment: NOTE: Reference range not established Creatinine, Urine 102.8 See Note mg/dL 08/05/2021 18:46 EST [facility] Comment: NOTE: Reference range not established Lab Urine Albumin to Creatinine Ratio 459(H) <30 ??g/mg Creatinine 08/05/2021 18:46 [facility] Comment: Urine Albumin/Creatinine Ratio: Normal: <30 ug/mg Creatinine Moderately increased albuminuria: 30-300 ug/mg Creatinine Meggan increased albuminuria: >300 ug/mg Creatinine Urine URINE SPECIMEN COLLECTION, CLEAN CATCH / Unknown Urine Collect / Unknown 08/05/2021 15:07 EST 08/05/2021 15:07 EST Sarika Zamudio NP CHEMISTRY & BLOOD GAS ORDERABLES Performing Organization Address City/State/[facility] Co de Phone Number [facility] [address] [place] [address] from Last 3 Months or Most Recently Relevant to Health Maintenance Advance Directives For more information, please contact: [phone] Documents on File Type Date Recorded Patient Website Developer Expl anation Advance Directive 11/19/2022 11:05 [place] [...] Made the Decision? Default/Not Discussed Care Teams Manager Loss Prevention Relationship Specialty Start Date End Date Elba Jett MD [address] [place] [phone] PCP - General Family Medicine - Primary Care 05/18/23 Carlos Ha NP [address] [place] [address] [address] [place] [phone] Consulting Clinician Cardiovascular Disease 09/14/21
--- OUTSIDE RECORDS SUMMARY | 2024-01-12 11:18 | XMS_ITS | Continuity of Care Document ---
Author Organization [facility] Address [address] [place] [address] Care Team Providers Care Claim Trainee Name Role Phone [facility] OTHER ELBA JETT Primary Care Provider [phone] LEISA SEGOVIA OTHER Assessment No assessment recorded. [...] serum or plasma 2023 024 [facility] ([facility]), [address] [place] [address] [place], [address], 12/15/2023 13:55:51 protein electrop horesis panel, serum or plasma 2023 024 [facility] ([facility]), [address] [place] [address] [place], [address], 12/14/2023 14:48:56 TSH, serum, reflex free T4 2023 024 [facility] ([facility]), [address] [place] [address] [place], [address], 12/15/2023 13:56:06 lyme disease igg+igm, serum, reflex western blot 2023 024 [facility] ([facility]), [address] [place] [address] [place], [address], 12/15/2023 13:56:24 vitamin B6 (pyridox ine), plasma 2023 024 [email or web address] [facility] ([facility]), [address] [place] [address] [place], [address], 12/20/2023 10:16:41 Referral None recorded . Procedures None recorded . Surgeries None recorded . Imaging None recorded . Medication Orders None recorded . Patient TargetsNo targets recorded. Patient InstructionsNo instructions recorded. Reason for Referral Diabetic Nutrition Education Referral for Type II diabetes mellitus uncontrolled assist with new CGM Referring Physician: Elba Jett, [facility], Encounter Date: 10/27/2023 Natural Resource Technician Referral for Typ e II diabetes mellitus uncontrolled once visit is complete please send us the visit notes Referring Physician: Elba Jett [facility], Encounter Date: 11/03/2023 Results Created Date Observation Date Name Description Value Unit Range Abnormal Flag LastModifiedBy Organization Detail LastModifiedTime 11/28/19 24 11/28/2023 zach daniel Name: Cristino Hart Unit #: [id number] Loc: ER Orderi ng Provid er: Accoun t #: [id number] Status : REG ER Primar y [...] FINDIN GS: ANTERI OR CIRCUL ATION: Right international marketing coordinator al caroti d artery : Intrac ranial segmen t is patent with no signif icant stenos is. No aneury sm. Right middle cerebr al artery : No occlus ion or signif icant stenos is. No aneury sm. Right anteri or cerebr al artery : No occlus ion or signif icant stenos is. No aneury sm. Left international marketing coordinator al caroti d artery : Intrac ranial segmen t is patent with no signif icant stenos is. No aneury sm. Left middle cerebr al artery : No occlus ion or signif icant stenos is. No aneury sm. Left anteri or cerebr al artery : No occlus ion or signif icant stenos is. No aneury sm. SECTION MAINTAINER IOR CIRCUL ATION: Right verteb ral artery : No occlus ion or signif icant stenos is. No aneury sm. Left verteb ral artery : No occlus ion or signif icant stenos is. No aneury sm. Basila r artery : No occlus ion or signif icant stenos is. No aneury sm. Right log grader ior cerebr al artery : No occlus ion or signif icant stenos is. No aneury sm. Left log grader ior cerebr al artery : No occlus [...] branch es of the anteri or or log grader ior intrac ranial circul ation. 2. No [...] No dissec tion or occlus ion. Right international marketing coordinator al caroti d artery : No stenos is of the extrac ranial segmen t. No dissec tion or occlus ion. Right betting agency manager al caroti d artery : No occlus ion or stenos is of the origin . Left common caroti d artery : No stenos is. No dissec tion or occlus ion. Left international marketing coordinator al caroti d artery : No stenos is of the extrac ranial segmen t. No dissec tion or occlus ion. Left betting agency manager al caroti d artery : No occlus [...] segmen ts of the right or left international marketing coordinator al caroti d arteri es by NASCET criter ia. REFERE NCES: NASCET CRITER IA. The degree of stenos is in the cervic al segmen t of the international marketing coordinator al caroti d artery is based on NASCET criter ia. Normal is no stenos is. Mild is less than 50% stenos is. Modera te is 50-69% stenos is. Severe is 70% to 99% stenos is. Total occlus ion is no detect able patent lumen. Dictat ed and Ben chaudhari d by: Yohan Jennings MD. Orderi ng:Katherine miller MD Access ion#=[id number] Ordere d By: CC: ------ ------ [...] at the addres s above. Thank- you. [facility] [address] [facility] [place], [address] 11/29/2023 09:49:12 11/28/19 24 11/28/2023 vrad repor t Patidonald t Name: Cristino Hart Unit #: [id number] Loc: ER Orderi ng Provid er: Accabdno t #: [id number] Status : REG ER Primar y [...] MD. Orderi ng:Katherine miller MD Access ion#=[id number] Ordere d By: CC: ------ ------ [...] at the addres s above. Thank- you. [facility] [address] [place], [address] 11/29/2023 09:49:13 11/28/19 24 11/28/2023 vrad repor t Patien t Name: Cristino Hart Unit #: [id number] Loc: ER Orderi ng Provid er: Accoun t #: [id number] Status : REG ER Primar y [...] FINDIN GS: ANTERI OR CIRCUL ATION: Right international marketing coordinator al caroti d artery : Intrac ranial segmen t is patent with no signif icant stenos is. No aneury sm. Right middle cerebr al artery : No occlus ion or signif icant stenos is. No aneury sm. Right anteri or cerebr al artery : No occlus ion or signif icant stenos is. No aneury sm. Left international marketing coordinator al caroti d artery : Intrac ranial segmen t is patent with no signif icant stenos is. No aneury sm. Left middle cerebr al artery : No occlus ion or signif icant stenos is. No aneury sm. Left anteri or cerebr al artery : No occlus ion or signif icant stenos is. No aneury sm. SECTION MAINTAINER IOR CIRCUL ATION: Right verteb ral artery : No occlus ion or signif icant stenos is. No aneury sm. Left verteb ral artery : No occlus ion or signif icant stenos is. No aneury sm. Basila r artery : No occlus ion or signif icant stenos is. No aneury sm. Right log grader ior cerebr al artery : No occlus ion or signif icant stenos is. No aneury sm. Left log grader ior cerebr al artery : No occlus [...] branch es of the anteri or or log grader ior intrac ranial circul ation. 2. No [...] No dissec tion or occlus ion. Right international marketing coordinator al caroti d artery : No stenos is of the extrac ranial segmen t. No dissec tion or occlus ion. Right betting agency manager al caroti d artery : No occlus ion or stenos is of the origin . Left common caroti d artery : No stenos is. No dissec tion or occlus ion. Left international marketing coordinator al caroti d artery : No stenos is of the extrac ranial segmen t. No dissec tion or occlus ion. Left betting agency manager al caroti d artery : No occlus [...] segmen ts of the right or left international marketing coordinator al caroti d arteri es by NASCET criter ia. REFERE NCES: NASCET CRITER IA. The degree of stenos is in the cervic al segmen t of the international marketing coordinator al caroti d artery is based on NASCET criter ia. Normal is no stenos is. Mild is less than 50% stenos is. Modera te is 50-69% stenos is. Severe is 70% to 99% stenos is. Total occlus ion is no detect able patent lumen. Dictat ed and Authen ticate d by: Yohan Jennings MD. Ordertad ng:Katherine miller MD Access ion#=[id number] Ordere d By: CC: ------ ------ [...] at the addres s above. Thank- you. [place] [address] [facility] [place], [address] 11/29/2023 09:49:13 11/29/19 24 11/29/2023 x-ray imagi ng repor t Patien t Name: Cristino Hart Unit #: [id number] Loc: Olman quintana Provid er: Charlette Denton Accoun t #: [id number] Status : ADM EJ Primar y [...] bution by any person other than this [facility] er is strict ly prohib ited. If you receiv e this report in error, please notify us immedi ately at and return the origin al report to us at the addres s above. Thank- you. jeff [address], [place], [address] 11/29/2023 09:49:14 11/29/19 24 11/29/2023 CT imagi ng repor t Patidonald t Name: Cristino Hart Unit #: [id number] Loc: Ordertad ng Provid er: Charlette Denton Accoun t #: [id number] Status : DIS EJ Primar y [...] the caroti d bulbs and proxim al international marketing coordinator al caroti d arteri es there is minima l plaque withou t hemody namica lly signif icant stenos is eviden t. Both international marketing coordinator al caroti d arteri es are demons trated to be patent in the upper neck and skull base- caroti d canals . Catering Attendant ior circul ation: Both verteb ral arteri [...] Brain W: Anteri or circul ation: Both international marketing coordinator al caroti d arteri es are patent [...] no aneury sms of these vessel s. Catering Attendant ior circul ation: The basila r artery ascend s in the midlin e. Distal ly it gives off patent bilate ral superi or cerebe llar arteri es. Above this level the basila r artery termin ates as patent bilate ral log grader ior cerebr al arteri es. There is also log grader ior commun icatin g artery on the right side of the [place]. There is no eviden ce of aneury sm at the tip of the basila r artery nor elsewh ere in the [place]. CT BRAIN: There is no [...] facili ty are submit ander to the [facility] Radiol ogy Data Regist ry (NRDR) Dose [...] error, please notify us immedi camille at [phone] and return the origin al report to us at the addres s above. Thank- you. [facility] [address] , [place], [address] 11/29/2023 14:50:21 12/30/19 24 12/30/2023 chayo beatty am No observ ation record ed. [facility] [address] [place], [address], 12/30/2023 12:41:49 12/31/19 24 12/31/2023 rhyth m strip , EKG* No observ ation record ed. [email or web address] Not Available 12/31/2023 13:33:00 Result Notes None recorded. Problems Name Status Onset Date Resolution Date Notes Provider Name and Address Organization Details Recorded Time Hyperlipidemi a Active 2005 on repatha, statin intolerant MD [address], [place], [address] , [facility] 19:48:59 Rosacea Completed 200307/24/2023 Problem Code: L71.9; Problem Code Type: ICD-10; MD [address], [place], [address] , [facility] 19:37:39 Essential hypertension Active [address], [place], [address] , [facility] 4 19:38:21 Type 2 diabetes mellitus [...] Code Type: ICD-10; MD [address], [place], [address] , [facility] 4 15:19:41 Allergic rhinitis Completed 201407/24/2023 09/26/2018 Problem Code: J30.9; Problem Code Type: ICD-10; Sameera Short simoan, [facility] 4 12:27:18 Mild intermittent asthma Completed 201507/24/2023 Problem Code: J45.20; Problem Code Type: ICD-10; ELBA JETT MD [address], [facility] [address] [place] [address] 4 19:38:59 Acquired absence of cervix and uterus Completed 201507/24/2023 Problem Code: Z90.710; Problem Code Type: ICD-10; ELBA JETT MD [address], [address] 4 19:39:15 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 Statin [...] Code Type: ICD-10; MD [address], [facility] [address] [place] [address] 4 13:23:43 Disorder of skin and/or subcutaneous tissue Completed 201701/25/2018 Problem Code: L98.9; Problem Code Type: ICD-10; Not Available [facility] 3 04:19:16 Overflow incontinence of urine Completed 201807/24/2023 Problem Code: N39.490; Problem Code Type: ICD-10; MD [address], [facility] [address] [place] [address] 4 19:37:43 Screening mammography Completed 201806/25/2023 Problem Code: Z12.31; Problem Code Type: ICD-10; MD [address], [facility] [address] , [facility] 4 19:42:41 Hypercalcemia Active [address], [facility] [address] 4 19:40:41 Urge incontinence of urine Completed 201807/24/2023 Problem Code: N39.41; Problem Code Type: ICD-10; MD [address], [facility] [address] , [facility] 4 19:40:30 History of recurrent pneumonia Completed 201802/14/2019 Problem Code: Z87.01; Problem Code Type: ICD-10; Not Available [facility] 3 04:19:17 Squamous cell carcinoma of skin of face Completed 201907/24/2023 11/29/2019 - Comments only - Franny Davison MD - she will be scheduled for surgery in the near future, recommending holding apixaban 3 days prior to procedure and then restarting, Problem Code: C44.320; Problem Code Type: ICD-10; MD [address]an [address], [address] 4 19:37:37 Major depression, single episode Completed 201907/24/2023 Problem Code: F32.9; Problem Code Type: ICD-10; MD [address], [facility] [address] , [facility] 4 19:37:48 Adjustment disorder with mixed anxiety and depressed mood Completed 201907/24/2023 Problem Code: F43.23; Problem Code Type: ICD-10; MD Regan [address], [address] 4 19:39:12 Neuropathy due to type 2 diabetes mellitus Active [address], [facility] [address] , [facility] 4 19:48:19 Proteinuria Completed 202007/24/2023 Problem Code: R80.9; Problem Code Type: ICD-10; MD [address], [facility] [address] , [facility] 4 19:38:51 Hyperparathyr oidism Active [address], [facility] [address] , [facility] 4 19:40:21 Vitamin B deficiency Active [address], [facility] [address] , [facility] 4 19:38:27 Chest pain Completed 202107/24/2023 Problem Code: R07.89; Problem Code Type: ICD-10; MD Regan [address], [address] 4 09:51:51 Essential tremor Active 2021 Stable MD [address], [address] 4 19:20:59 Abnormal involuntary movement Completed 202107/24/2023 Problem Code: R25.8; Problem Code Type: ICD-10; MD Regan [address], [address] 4 19:36:57 Screening for cancer Completed 202106/25/2023 Problem Code: Z12.10; Problem Code Type: ICD-10; MD Regan [address], [address] 4 13:23:13 Cough Completed 202106/13/2022 Problem Code: R05.8; Problem Code Type: ICD-10; Not Available [facility] 3 04:19:19 Anesthesia of skin Completed 202206/25/2023 Problem Code: R20.0; Problem Code Type: ICD-10; MD [address], [place] [address] , [facility] 13:23:29 Ventricular tachycardia Completed 202207/24/2023 Problem Code: I47.20; Problem Code Type: ICD-10; MD [address], [facility] [address] [place] [address] 19:37:02 Kidney stone Completed 202207/24/2023 Problem Code: N20.0; Problem Code Type: ICD-10; MD Regan [address], [address] 19:40:33 Syncope and collapse Completed 202207/24/2023 Problem Code: R55; Problem Code Type: ICD-10; MD [address], [place], [place], [address] [place] [address] 19:38:44 History of disorder of digestive system Completed 202207/24/2023 Problem Code: Z87.19; Problem Code Type: ICD-10; MD Regan [address], [address] 19:40:17 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 MD [address], [facility] [address] [place] [address] 19:47:04 Ulcer of duodenum Completed 202207/24/2023 Problem Code: K26.9; Problem Code Type: ICD-10; MD [address], [facility] [address] [place] [address] 19:37:54 Hemorrhagic esophagitis Completed 202207/24/2023 Problem Code: K20.91; Problem Code Type: ICD-10; MD [address], [place], [address] , [facility] 4 19:38:17 Acute posthemorrhag ic anemia Completed 202207/24/2023 Problem Code: D62; Problem Code Type: ICD-10; MD [address], [facility] [address] , [facility] 4 19:37:07 Hypertrophic cardiomyopath y Active [address], [facility] [address] , [facility] 4 19:58:46 Urinary tract infectious disease Completed 201805/08/2019 Problem Code: N39.0; Problem Code Type: ICD-10; Not Available [facility] 3 04:19:23 Right lower quadrant pain Completed 201810/23/2019 Problem Code: R10.31; Problem Code Type: ICD-10; Not Available [facility] 3 04:19:23 Screening for osteoporosis Completed 201705/07/2022 Problem Code: Z13.820; Problem Code Type: ICD-10; Not Available [facility] 3 04:19:23 Breast composition Completed 201404/14/2016 Not Available [facility] 3 04:19:24 Parkinson's disease Completed 202102/03/2022 Problem Code: G20; Problem Code Type: ICD-10; Not Available [facility] 3 04:19:24 Diarrhea Completed 201805/07/2022 Problem Code: R19.7; Problem Code Type: ICD-10; Not Available [facility] 3 04:19:24 Chorea Completed 202004/10/2021 Problem Code: G25.5; Problem Code Type: ICD-10; Not Available [facility] 3 04:19:24 Blood chemistry outside reference range Completed 201609/24/2022 Problem Code: R79.89; Problem Code Type: ICD-10; Not Available [facility] 3 04:19:24 Dyspnea Completed 201810/23/2019 Problem Code: R06.02; Problem Code Type: ICD-10; MD [address], [facility] [id number] [place] [address] 4 19:42:49 Chest pain Completed 202004/10/2021 Problem Code: R07.89; Problem Code Type: ICD-10; MD [address], [facility] [address] [place] [address] 4 09:51:51 Bleeding from nose Completed 201606/29/2017 Problem Code: R04.0; Problem Code Type: ICD-10; Not Available [facility] 3 04:19:25 Hyperglycemia due to type 2 diabetes mellitus Completed 201504/14/2016 Problem Code: E11.65; Problem Code Type: ICD-10; Not Available [facility] 3 04:19:26 Upper respiratory tract infection caused by Influenza A Completed 202109/08/2022 Problem Code: J09.x2; Problem Code Type: ICD-10; Not Available [facility] 3 04:19:26 Hypertensive disorder Completed 200603/17/2023 Not Available [facility] 3 04:19:26 Type 2 diabetes mellitus Completed 200503/17/2023 Not Available [facility] 3 04:19:27 Adult health examination Completed 201605/19/2017 Problem Code: Z00.00; Problem Code Type: ICD-10; Not Available [facility] 3 04:19:27 Exposure to communicable disease Completed 202011/26/2020 Problem Code: Z20.9; Problem Code Type: ICD-10; Not Available [facility] 3 04:19:27 Bilateral earache Completed 201705/09/2018 Problem Code: H92.03; Problem Code Type: ICD-10; Not Available [facility] 3 04:19:27 Chest pain Completed 202111/03/2021 Problem Code: R07.9; Problem Code Type: ICD-10; MD Regan [address], [address] 4 09:51:51 Increased frequency of urination Completed 201502/03/2022 Problem Code: R35.0; Problem Code Type: ICD-10; Not Available [facility] 3 04:19:28 Acute urinary tract infection Completed 202206/25/[address], [address] 4 13:23:38 Muscle weakness Active 2022 TORY FERGUSON RN [facility], [facility] 3 12:36:18 Screening mammography Completed 201507/24/2023 Problem Code: Z12.31; Problem Code Type: ICD-10; MD Regan [address], [address] 4 19:42:41 Generalized skin eruption caused by drug and medicament Completed 202207/24/2023 Problem Code: L27.0; Problem Code Type: ICD-10; MD [address]an [address], [facility] [address] [place] [address] 4 19:42:34 Candidiasis of vulva Completed 202207/24/[address], [facility] [address] [place] [address] 4 19:40:45 Automatic implantable cardiac defibrillator in situ Active 2022 [employer] Bi-V ICD. Placed 11/2022 at [facility] MD [address], [address] 19:44:34 Dizziness and giddiness Active 2022 Problem Code: R42; Problem Code Type: ICD-10; MD [address]an [address], [address] 19:42:51 Dyspnea Completed 202207/24/2023 Problem Code: R06.09; Problem Code Type: ICD-10; MD Regan [address], [address] 19:42:49 Red blood cell finding Completed 202207/24/2023 Problem Code: R71.8; Problem Code Type: ICD-10; MD Regan [address], [address] 19:42:46 Vulval and/or perineal noninflammato ry disorders Completed 202207/24/2023 Problem Code: N90.89; Problem Code Type: ICD-10; MD [address]an [address], [address] 19:42:37 Dysuria Completed 202207/24/2023 Problem Code: R30.0; Problem Code Type: ICD-10; MD Regan [address], [address] 19:43:56 Atheroscleros is of coronary artery without angina pectoris Active 2022 s/p HUDSON to RCA MD [address], [address] 4 19:43:[address] Paredes monitoring, concern for Parkinsism, Jay scan 11/09 negative. 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 S/p ICD implantation. MD [address], [place] [id number] , [facility] 4 19:46:00 Paroxysmal atrial fibrillation Active [address], [place] [address] , [facility] 4 19:46:19 Heart failure with normal ejection fraction Active 2023 NYHA stage 3. Followed by [facility] cardiology, Carlos Ha NP, MD [address], [facility] [address] , [facility] 4 19:53:02 Dilated cardiomyopath y Active [address], [facility] [address] , [facility] 4 19:46:57 Type II diabetes mellitus uncontrolled Active [address], [place], [address] , [facility] 4 19:47:49 Type 2 diabetes mellitus [...] Code Type: ICD-10; MD [address], [place], [address] , [facility] 4 15:19:41 Recurrent urinary tract infection Active 2023 Sameera jarvis, [facility] 4 12:36:35 Memory impairment Active 2023 Sameera jarvis, [facility] 4 12:36:32 Hemiplegia and/or hemiparesis following stroke Active [address], [place], [address] , [facility] 4 07:09:33 Actinic keratosis Active [address], [place], [address] , [facility] 4 07:32:48 Tremor Active 2023 FILOMENA GREGG MA null, [facility] [facility] 4 10:14:28 Neuropathic pain Active 2023 FILOMENA GREGG MA null, [facility] 4 10:14:50 Cervical radiculopathy Active 2023 FILOMENA GREGG MA null, [facility] 4 10:15:16 Sciatica Active 2023 FILOMENA GREGG MA null, [facility] 4 10:15:27 Impairment of balance Active 2023 FILOMENA GREGG MA null, [facility] 4 10:16:14 Neuropathy Active [address], [facility] [phone] [place] [address] 4 11:01:37 Overweight Active [address], [facility] [phone] [place] [address] 4 09:42:35 Dyspnea on exertion Active [address], [facility] [phone] [place] [address] 4 09:42:35 Chest pain Active 2023 Problem Code: R07.89; Problem Code Type: ICD-10; MD Regan MCGEE Dr, [facility] [id number] [place] [address] 4 09:51:51 Problem Notes None recorded. Procedures Surgical History Date Name Laterality Status Provider Name and Address Organization Details Recorded Time 12/09/19 23 endovascular insertion of drug eluting stent completed MD Regan MCGEE Dr, [facility] [address], [facility] 07/24/2023 19:50:55 01/20/20 13 Hysterectomy completed MD Regan MCGEE Dr, [facility] [phone] [place] [address] 07/24/2023 19:39:58 Imaging Results None recorded. Procedure Notes None recorded. Medical Equipment None Reported. Allergies Allergen ID Allergen Name Allergen Category Reaction Reaction Severity Criticality Documentation Date Start Date Code Code System Note Provider Name and Address Organization Details Recorded Time 49998 Iodinated contrast media (substanc e) medicatio n Not available Not available Not available 04/30/20232002 63347 2004 SNOMED Aller gyNam e: 'IVP DYE'; Not Available [facility] 3 16:31:18 71692 Product containin g 3-hydroxy -3-methyl glutaryl- coenzyme A reductase inhibitor (product) medicatio n Not available Not available Not available 04/30/20232017 26704 009 SNOMED Not Available [facility] 3 16:31:19 80135 lisinopri l medicatio n cough mild Not available 04/30/20232015 50887 RxNorm cough Aller gyCod e: '3140 76'; Aller gyNam e: 'SARAH NOPRI L'; Aller gyCon ceptT ype: 'RX Norm' ; Not Available [facility] 3 16:31:19 57310 Zetia medicatio n myalgias (muscle pain) mild Not available 04/30/20232006 52329 9 RxNorm MYALG IA Not Available [facility] 3 16:31:20 08356 Plaquenil medicatio n myalgias (muscle pain) mild Not available 04/30/20232006 02593 2 RxNorm MYALG IA Not Available [facility] 3 16:31:20 20035 Cozaar medicatio n Not available Not available Not available 04/30/20232004 92238 8 RxNorm Not Available [facility] 3 16:31:20 23786 atenolol medicatio n cough mild low 05/05/20232022 1202 [facility] 3 12:16:33 66412 acetamino phen / oxycodone medicatio n rash moderate high 05/05/20232022 94113 3 RxNorm LACEY DORMAN [facility] 3 12:17:17 06846 Plavix medicatio n rash severe high 05/05/20232022 69173 2 RxNorm ELBA JETT MD [address], [place], [address] , [facility] 4 19:41:48 46082 ticagrelo r medicatio n abdominal pain severe Not available 07/02/20232022 49468 32 RxNorm Aller gyRea ction : 'Carlos Manuel roint estin al,'; Aller gyNam e: 'ILA GRELO R'; Not Available [facility] 4 05:10:26 37660 aspirin medicatio n Not available Not available high 07/23/2023 1191 RxNorm GI bleed ELBA JETT MD [address], [place], [address] [place] [address] 4 19:41:13 68898 Jardiance medicatio n Not available Not available low 07/24/2023 30063 59 RxNorm recur rent yeast infec tions and UTIs ELBA JETT MD [address], [place], [address] , [facility] 4 19:42:15 Medications Name Sig Start [...] tab by mouth daily 05/10 completed per [facility] endocrin ology Not Available Not Available Not [...] mouth once a day 06/25 completed Per [facility] D/[facility] summary 12/09/22 Not Available Not Available [...] completed Not Available Not Available Not Available OneToThoof Ultra Test strips Test blood glucose three [...] TWICE A DAY FOR 10 DAYS WITH MEAL/RCIKIE D 06/25 completed Not Available Not Available [...] once a day 11/17 completed started at [facility] discharg e followin g recurren t TIA [...] for nausea and vomiting 11/17 completed Per [facility] ED 11/02/22 Not Available Not Available Not [...] with humalog pen if preferre d by [facility] e ID# [id number] Not Available Not Available Not Available [...] cap by mouth twice daily 01/24 completed [facility] discharg e Not Available Not Available [...] Not Available Not Available FreeStyle Lo 3 [place] Use as directed active Not Available Not Available No t Available Vitals Date Recorded Body height Body mass index (BMI) Body weight Body temperature Oxygen saturation Oxygen saturation in Arterial blood by Pulse oximetry Heart rate Systolic blood pressure Diastolic blood pressure Provider Name and Address Organization Details Last Updated DateTime 4 162.56 cm 26.9 kg/m2 03834 g 97.8 [degF] 96 % 96 % 101 /min 140 mm[Hg] 86 mm[Hg] FILOMENA GREGG MA [facility] 4 08:25:36 Social History Question Answer Notes LastModified by Organizat ion Details LastModified Time Tobacco Smoking Status Never Smoker LACEY DORMAN, [facility] 05/05/2023 13:38:34 What Is Your Level Of Alcohol Consumption? None Information not available 05/05/2023 Date Care Plan Printed: 08/12/2023 First Printed 04/26/23 (old System) [email or web address] Information not available 08/12/2023 Assigned Timber Appraiser: Leisa Roger Information not available 08/12/2023 Is [facility] The Lead Timber Appraiser? Yes Information no t available 08/12/2023 Level [...] preservative free, adsorbed 08/05/2021 completed Not Available [facility] 04/30/2023 05:10:29 Tdap 12/18/2011 completed Not Available [facility] 05:10:29 zoster live 07/12/2012 completed Not Available [facility] 04/30/2023 05:10:29 Pneumococcal conjugate PCV 13 06/29/2017 completed Not Available [facility] 04/30/2023 05:10:29 Influenza, high-dose, trivalent, PF 05/09/2018 completed Not Available [facility] 04/30/2023 05:10:29 Td(adult) unspecified formulation 10/01/2005 completed Not Available [facility] 04/30/2023 05:10:30 Td(adult) unspecified formulation 12/18/2011 completed Not Available [facility] 04/30/2023 05:10:30 Td(adult) unspecified formulation 04/06/1996 completed [...] high-dose, quadrivalent, PF 04/21/2022 completed Not Available [facility] 04/30/2023 05:10:32 COVID-19, mRNA, LNP-S, PF, 100 mcg/0.5mL dose or 50 mcg/0.25mL dose 11/03/2021 completed Not Available [facility] 04/30/2023 05:10:32 COVID-19, mRNA, LNP-S, PF, 30 mcg/0.3 mL dose 08/19/2020 completed Not Available [facility] 04/30/2023 05:10:32 COVID-19, mRNA, LNP-S, PF, 30 mcg/0.3 mL dose 09/16/2020 completed Not Available [facility] 04/30/2023 05:10:32 COVID-19, mRNA, LNP-S, PF, 30 mcg/0.3 mL dose 04/10/2021 completed Not Available [facility] 04/30/2023 05:10:33 COVID-19, mRNA, LNP-S, bivalent, PF, 30 mcg/0.3 mL dose 05/07/2022 completed Not Available [facility] 04/30/20 05:10:33 pneumococcal polysaccharide PPV23 09/26/2018 completed Not Available [facility] 2022 05:10:34 pneumococcal polysaccharide PPV23 04/06/1996 completed Not Available [facility] 2022 05:10:34 influenza, unspecified formulation 03/04/2020 completed Not Available [facility] 04/30/2023 05:10:34 Influenza, high-dose, quadrivalent, PF 03/05/2023 completed Not Available [facility] 07/02/2023 05:30:45 COVID-19, mRNA, LNP-S, PF, arthur-sucrose, 30 mcg/0.3 mL 03/25/2023 completed Not Available [facility] 07/02/2023 05:30:45 Past Encounters Encounter ID Performer Location Encounter Start Date Encounter Closed Date Diagnosis/Indication Diagnosis SNOMED-CT Code [id number] ELBA JETT MD [address] [address] 12/06/2023 08:09:33 12/06/2023 09:15:34 Neuropathy [id number] Goals Section Goal Description Status Start Date [...] Acharya Member ID Guarantor Name 12/06/2023 1 [facility] (MEDICARE REPLACEMENT/A DVANTAGE - PPO) [id number] Joanna Hart [id number] Joanna Florence Tanner Notes Date Note Type Note Provider Name and Address Organization Details Recorded Time 12/06/2023 text/html HPI Notes: Cristino martinez presents for hospital f/u. She was admitted to [facility] from 11/27-11/29/23 for stroke rule out. 30 [...] did not start the aspirin because her termite control technician told her not to. She has a [...] her morning medications. MD Regan MCGEE [address], [place], [address], [facility]. 12/06/2023 11:09:04 OBGyn Episode No OBEpisode recorded.
--- OUTSIDE RECORDS SUMMARY | 2024-01-12 11:18 | XMS_ITS | Clinical Summary ---
Author Organization [facility] Address [address] [place] [address] Care Team Providers Care Ux Designer Name Role Phone Carlos Ha BARREL RIFLER Unavailable [phone] Elba Jett MD Primary Care Provider [phone] Allergies Active Allergy Reactions Criticality Noted Date [...] 05/18/2023 Propoxyphene N-Acetaminophen 01/27/2011 Other reaction(s): Hallucinations Yqmctxw-Ryw-Yjz Reductase Inhibitors 01/18/2020 Dulaglutide 07/10/2020 Gi Side [...] hyperglycemia, with long-term current use of insulin ([facility]) by [facility] (non-drug; combo route) route daily. One touch verio meter or best covered by insurance. 1 Each 10/02/2020 Active flash glucose scanning reader (FREESTYLE VICKY 2 READER) [facility] 1 Device by [facility] (non-drug; combo route) route daily. Dispense [...] t be different from the original. 2021-09-16 [facility] MGP Verbal BRUNA: permission to speak with Lefty Patricia Hart (.) Patient has given permission for [facility] to verbally discuss the following [...] if rash returns. PAF (paroxysmal atrial fibrillation) ([facility]) 0 02/16/2023 ASCVD (arteriosclerotic cardiovascular disease) 12/08/2022 Chronic heart failure with p reserved ejection fraction ([facility]) 12/01/2022 AVB (atrioventricular block) 11/24/2022 Gastrointestinal hemorrhage 11/11/2022 Fatigue 12/04/2020 Last Assessment & Plan: ?cardiac vs orthostatic hypotension vs glucose regulation. Has upcoming ECHO scheduled. Discussed checking BP at home with lightheadedness. Has upcoming visit with PCP for further w/up. Will reach out to formula checker as well. We did discuss giving her body time to adjust to BG's normalizing, did lower lantus and humalog today. Osteopenia after menopause 10/02/2020 Last Assessment & Plan: Get updated DEXA scan at same clinic [facility]. Ordered faxed. Request disk of images to bring to next visit. Continue with DEXA every 2 years. Hypercalcemia 10/02/2020 Last Assessment & Plan: Stable. Primary hyperparathyroidism ([facility]) 10/02/2020 Last Assessment & Plan: Encouraged to increase hydration 5-6 bottles water/day, this can include tea/crystal light. Will check calcium levels yearly, more often with change in kidney function. Stage 3b chronic kidney disease ([facility]) 2020 Last Assessment & Plan: Stable. Dilated cardiomyopathy ([facility]) 02/23/2020 Last Assessment & Plan: Improved EF on echo 11/2020 (55%) Ventricular tachycardia ([facility]) 11/23/2019 Last Assessment & Plan: No [...] current dose of Repatha Cerebrovascular accident (CVA) ([facility]) Current use of usp 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 Last Assessment & Plan: Patient is taking and tolerating apixaban without overt signs of bleeding. Will check labs including renal function today. custodial current use of insulin ([facility]) 06/01 Last Assessment & Plan: Pt. is taking and tolerating Eliquis without overt signs of bleeding Essential hypertension 06/01/2019 Last Assessment & Plan: Relatively well controlled Paroxysmal atrial fibrillation ([facility]) 019 Last Assessment & Plan: She is appropriately anticoagulated for stroke risk reduction. Diabetes mellitus, type 2 ([facility]) 01/26/2011 Overview: On metformin On metformin [...] persistently or elevations >200. MALB today. Given [facility] HAP program info to see if qualifies. Rosacea 01/26/2011 Overview: previously on Elidel previously on Elidel Duodenal erosion Esophagitis Blood loss anemia Hypertrophic cardiomyopathy ([facility]) Edema of right lower extremity Resolved Problems Problem Noted Date Diagnosed Date Resolved Date NSTEMI (non-ST elevated myoc ardial infarction) ([facility]) 12/02/2022 01/05/2023 Elevated troponin 11/24/2022 01/05/2023 [...] 11/14/2022 NSTEMI (non-ST elevated myoc ardial infarction) ([facility]) 12/07/2022 Chest pain 01/05/2023 Encounters Date Type Department Care Team Description 12/13/2023 Lab Requisition [facility] Pathology & Laboratory Medicine - [address] [address] Outr Resulting Lab, Provider from Last 3 Months Medical History Medical History Date Comments Nonrheumatic aortic valve stenosis 06/01/2019 Mixed hyperlipidemia 06/05/2019 Essential hypertension 06/01/2019 Paroxysmal atrial fibrillation ([facility]) 019 Cerebrovascular accident (CVA) ([facility]) 019 Diabetes mellitus, type 2 ([facility]) 01/26/2011 On metformin On metformin Social [...] Info) Description 03/08/2024 9:30 EDT Ancillary Procedure [facility] [place] [address] 03/08/2024 10:15 EDT Ancillary Procedure [facility] [place] [address] 04/05/2024 10:00 EDT Ancillary Procedure [facility] [address] [place] [id number] 04/05/2024 10:00 EDT Office Visit [facility] [address] [place] [address] [id number] Carlos Ha NP [address] [facility] [address]OB-A [address] [place] [phone] Health Maintenance Due Date Last Done [...] 08/01/2021, 06/05/2019 Medical Devices Implanted Type Area Central Office Operator Supervisor Device Identifier Shelf Expiration Date Model / Serial / Lot Defibrillator Multi Chamber Gaggerman D Mri Comp [id number] Amplia [id number] - [id number] Implanted:Qty: 1 on 03/15/2023 by Lefty Moss MD at [facility] ICD Left: Chest [employer] [id number] 05/04/2024 [id number] / [id number] 3S / Cardiac Lead Icd Tripolar Endocardium [id number] Sprint Quattro [id number] - [id number] Implanted:Qty: 1 on 03/15/2023 by Lefty Moss MD at [facility] Lead Left: Heart [employer] [id number] 10/28/2024 [id number] 5 / [id number] 7V / Lead Pacemaker Endocardial Biplr Act Fixtn [id number] Selectsecure [id number] - [id number] Implanted:Qty: 1 on 03/15/2023 by Lefty Moss MD at [facility] Lead Left: Heart [employer] [id number] 01/19/2025 3830-6 9C M / [id number] 3V / Lead Pacemaker Endocardial Biplr Act Fixtn [id number] Capsurefix Novus [id number] - [id number] Implanted:Qty: 1 on 03/15/2023 by Lefty Moss MD at [facility] Lead Left: Heart [employer] [id number] 07/09/2024 5076-4 5 / [id number] 2V / Stent System 3.50mm X 33mm Rapid Exchange Xience Skypoint Everolimus Eluting Coronary - [id number] Implanted:Qty: 1 on 12/08/2022 by Edgardo Ha MD at [facility] Stent Right: Coronary [employer] [id number] / / Description:Mid RCA Procedures Procedure [...] HEMOGLOBIN A1C Routine 11/11/2022 13:24 EDT URINE KAQZEXX-BM-[id number] RATIO (ACR) Routine 08/05/2021 15:07 EST Type 2 diabetes mellitus with hyperglycemia, with long-term current use of insulin ([facility]) (HCC) from Last 3 Months or Most Recently Relevant to Health Maintenance Results * (ABNORMAL) SPEP, INCLUDES QUANTITATION OF MONOCLONAL SPIKE PERFORMABLE (12/13/2023 9:14 EDT) Albumin % 60.0 55.8 - 66.1 % 12/14/2023 12:34 [facility] Albumin g/dL 3.8 3.6 - 5.2 g/dL 12/14/2023 12:34 [facility] Alpha-1 % 4.9 2.9 - 4.9 % 12/14/2023 12:34 [facility] Alpha-1 g/dL 0.30 0.15 - 0.40 g/dL 12/14/2023 12:34 [facility] Alpha-2 % 11.4 7.1 - 11.8 % 12/14/2023 12:34 [facility] Alpha-2 g/dL 0.70 0.50 - 1.00 g/dL 12/14/2023 12:34 [facility] Beta % 13.4(H) 8.4 - 13.1 % 12/14/2023 12:34 [facility] Beta g/dL 0.80 0.60 - 1.20 g/dL 12/14/2023 12:34 [facility] Gamma % 10.3(L) 11.1 - 18.8 % 12/14/2023 12:34 EDT [facility] Gamma g/dL 0.60 0.60 - 1.60 g/dL 12/14/2023 12:34 EDT [facility] SPEP Comment No apparent monoclonal protein seen on serum electrophoresis 12/14/2023 12:34 EDT [facility] Comment:See scanned/suppleme ntary report. Total Protein 6.3 6.3 - 8.2 g/dL 12/14/2023 12:34 EDT [facility] Blood VENOUS BLOOD / Unknown 12/13/2023 9:14 EDT 12/13/2023 17:12 EDT Provider Outr Resulting Lab CHEMISTRY & BLOOD GAS ORDERABLES Performing Organization Address City/[facility]/ZIP Co de Phone Number [facility] [address] [place] [address] * LYME AB (12/13/2023 9:14 EDT) Lyme Ab Negative Negative 12/14/2023 13:36 EDT [facility] Blood VENOUS BLOOD / Unknown 12/13/2023 9:14 EDT 12/13/2023 17:12 EDT Provider Outr Resulting Lab IMMUNOLOGY A ND SEROLOGY ORDERABLES Performing Organization Address City/[facility]/ZIP Co de Phone Number [facility] [address] [place] [address] * PROTEIN, TOTAL (12/13/2023 9:14 EDT) Blood VENOUS BLOOD / Unknown 12/13/2023 9:14 EDT 12/13/2023 17:12 EDT Provider Outr Resulting Lab CHEMISTRY & BLOOD GAS ORDERABLES Performing Organization Address City/[facility]/ZIP Co de Phone Number [facility] [address] [place] [address] * (ABNORMAL) LIPID PROFILE (INCLUDES CHOLESTEROL, TRIGLYCERIDES, HDL, LDL) (12/03/2022 23:53 EDT) Cholesterol 107 <200 mg/dL 12/04/2022 0:16 EDT [facility] Comment:Note that therapeuti c goals will differ between patients based on cardiac risk factors and current medical therapy. HDL 40(L) >=50 mg/dL 12/04/2022 0:16 T [facility] Comment:Note that therapeuti c goals will differ between patients based on cardiac risk factors and current medical therapy. LDL, Calculated 29 <160 mg/dL 0:16 EDT [facility] Comment:Note that therapeuti c goals will differ between patients based on cardiac risk factors and current medical therapy. Triglyceride 188(H) <=150 mg/dL 12/04/2022 0:16 T [facility] Comment:Note that therapeuti c goals will differ between patients based on cardiac risk factors and current medical therapy. Chol/HDL Ratio 2.7 See Note 12/04/2022 0:16 T [facility] Comment:No reference range h as been established for CHOL/HDL ratio. Non HDL Cholesterol 67 <160 mg/dL 12/04/2022 0:16 [facility] Comment:Note that therapeuti c goals will differ between patients based on cardiac risk factors and current medical therapy. Blood VENOUS BLOOD / Unknown Venipuncture / Unknown 12/03/2022 23:53 EDT 12/04/2022 0:00 EDT Darion Tinajero MD CHEMISTRY & BLOOD GA S ORDERABLES [facility] [address] [place] [address] * (ABNORMAL) HEMOGLOBIN A1C (11/11/2022 13:24 EDT) Hemoglobin A1c 7.1(H) <5.7 % 11/11/2022 16:36 EDT [facility] Comment: Glycemic Status References: Normal: ??<5.7% Pre-Diabetes: ??5.7% - 6.4% Diagnostic of Diabetes: ??> or = 6.5% (if confirmed) Est Avg Glucose 157 mg/dL 16:36 EDT [facility] Comment:The eAG represents t he A1c result expressed as average glucose in mg/dL. Blood VENOUS BLOOD / Unknown IV Draw / Unknown 11/11/2022 13:24 EDT 11/11/2022 13:35 EDT Stephon Sosa CHEMISTRY & BLOOD GA S ORDERABLES [facility] [address] [place] [address] * (ABNORMAL) URINE [id number]-ST-[id number] RATIO (ACR) (08/05/2021 15:07 EST) Albumin, Urine 47.2 See Note mg/dL 2021 18:46 [facility] Comment: NOTE: Reference range not established Creatinine, Urine 102.8 See Note mg/dL 08/05/2021 18:46 [facility] Comment: NOTE: Reference range not established Lab Urine Albumin to Creatinine Ratio 459(H) <30 ??g/mg Creatinine 08/05/2021 18:46 [facility] Comment: Urine Albumin/Creatinine Ratio: Normal: <30 ug/mg Creatinine Moderately increased albuminuria: 30-300 ug/mg Creatinine Meggan increased albuminuria: >300 ug/mg Creatinine Urine URINE SPECIMEN COLLECTION, CLEAN CATCH / Unknown Urine Collect / Unknown 08/05/2021 15:07 EST 08/05/2021 15:07 EST Sarika Zamudio NP CHEMISTRY & BLOOD GAS ORDERABLES [facility] [address] [place] [address] from Last 3 Months or Most Recently Relevant to Health Maintenance Advance Directives For more information, please contact: [phone] Documents on File Type Date Recorded Patient Publicist Expl anation Advance Directive 11/19/2022 11:05 [place] [...] Made the Decision? Default/Not Discussed Care Teams Ux Designer Relationship Specialty Start Date End Date Elba Jett MD [address] [place] [phone] PCP - General Family Medicine - Primary Care 05/18/23 Carlos Ha NP [address] [place] [address] [address] [place] [phone] Consulting Clinician Cardiovascular Disease 09/14/21
--- OUTSIDE RECORDS SUMMARY | 2024-01-12 11:18 | XMS_ITS | Continuity of Care Document ---
Author Organization [facility], [facility] Address [address] [place] [address] Care Team Providers Care Brick Pitcher Name Role Phone [facility] OTHER BHARATH JETT Primary Care Provider LEISA SEGOVIA OTHER Assessment Encounter Date Assessment Date Assessment LastModified by Organization Details LastModified Time 11/03/2023 11/03/2023 The total time devoted to today's encounter, including both the shjq-ha-vjje time with the patient and/or family/caregi pam and pqc-ruxq-wv-f lópez time I personally spent is 37 minutes. [facility] Not available 11/04/2023 07:33:34 Plan of Treatment Reminders Order Date Submit Date Provider Last Modified By Organization Details Last Modified Time Details Appointments Medical Nutritio n Therapy 90 2023 11:00A M Isatu Yo Not available Not available Not available Annual Chronic Care (65+) 40 2023 02:40P Naman Jett Not available Not available Not available Lab hemoglob in A1C, fingerst ick 2023 024 [facility], [address] [place], [address], 11/03/2023 14:49:34 Referral optometr ist referral - once visit is complete please send us the visit notes 2023 024 [email or web address] [facility] - [address] [place], [address], 01/10/2024 14:14:27 Procedures None recorded . Surgeries None recorded . Imaging None recorded . Medication Orders None recorded . Patient TargetsNo targets recorded. Patient InstructionsNo instructions recorded. Reason for Referral Diabetic Nutrition Education Referral for Type II diabetes mellitus uncontrolled assist with new CGM Referring Physician: Bharath Jett, [facility], Encounter Date: 10/27/2023 Color Artist Referral for Typ e II diabetes mellitus uncontrolled once visit is complete please send us the visit notes Referring Physician: Bharath Jett [facility], Encounter Date: 11/03/2023 Results Created Date Observation Date Name Description Value Unit Range Abnormal Flag LastModifiedBy Organization Detail LastModifiedTime 11/03/19 24 11/03/2023 hemog lobin A1C, finge rstic k hemoglobin A1C 7.7 % <5.7 Not Available [address], [address], 11/03/2023 14:48:42 10/05/19 24 10/05/2023 ICD inter rogat ion, in-pe rson (PROC ) No observ ation record ed. [email or web address] [facility] [address], [place], [address], 10/06/2023 09:44:46 11/28/19 24 11/28/2023 vrad esteban daniel Name: Cristino Hart Unit #: [id number] Loc: ER Orderi ng Provid er: Accoun t #: [id number] Status : REG ER Primar y [...] FINDIN GS: ANTERI OR CIRCUL ATION: Right purchasing intern al caroti d artery : Intrac ranial segmen t is patent with no signif icant stenos is. No aneury sm. Right middle cerebr al artery : No occlus ion or signif icant stenos is. No aneury sm. Right anteri or cerebr al artery : No occlus ion or signif icant stenos is. No aneury sm. Left purchasing intern al caroti d artery : Intrac ranial segmen t is patent with no signif icant stenos is. No aneury sm. Left middle cerebr al artery : No occlus ion or signif icant stenos is. No aneury sm. Left anteri or cerebr al artery : No occlus ion or signif icant stenos is. No aneury sm. BALANCE SHEET ANALYST IOR CIRCUL ATION: Right verteb ral artery : No occlus ion or signif icant stenos is. No aneury sm. Left verteb ral artery : No occlus ion or signif icant stenos is. No aneury sm. Basila r artery : No occlus ion or signif icant stenos is. No aneury sm. Right hospital clerk ior cerebr al artery : No occlus ion or signif icant stenos is. No aneury sm. Left hospital clerk ior cerebr al artery : No occlus [...] branch es of the anteri or or hospital clerk ior intrac ranial circul ation. 2. No [...] No dissec tion or occlus ion. Right purchasing intern al caroti d artery : No stenos is of the extrac ranial segmen t. No dissec tion or occlus ion. Right senior clinical data manager al caroti d artery : No occlus ion or stenos is of the origin . Left common caroti d artery : No stenos is. No dissec tion or occlus ion. Left purchasing intern al caroti d artery : No stenos is of the extrac ranial segmen t. No dissec tion or occlus ion. Left senior clinical data manager al caroti d artery : No [...] segmen ts of the right or left purchasing intern al caroti d arteri es by NASCET criter ia. REFERE NCES: NASCET CRITER IA. The degree of stenos is in the cervic al segmen t of the purchasing intern al caroti d artery is based on NASCET criter ia. Normal is no stenos is. Mild is less than 50% stenos is. Modera te is 50-69% stenos is. Severe is 70% to 99% stenos is. Total occlus ion is no detect able patent lumen. Dictat ed and Ben chaudhari d by: Yohan Jennings MD. Orderi ng:Katherine miller MD Access ion#=[id number] Ordermichelle d By: CC: ------ ------ ------ ------ ------ ------ ------ ------ ------ ------ ------ ------ ---- Dictat ed By: Report s vrad 1848 Transc ribed By: Di Merge 1848 This is privil eged, confid ential inform ation intend ed only for the provid er named. Any use or distri bution by any person other than this provid er is strict ly prohib ited. If you receiv e this report in error, please notify us immrigoi camille at [phone] and return the origin al report to us at the addres s above. Thank- you. jeff [facility] [address], [place], [address] 11/29/2023 09:49:12 11/28/19 24 11/28/2023 zach daniel Name: Cristino Hart Unit #: [id number] Loc: ER Orderi lilian Provid er: Huy daniel #: [id number] Status : REG ER Primar y Care Provid er: Bharath Jett Date of Exam: Sex: F : 1949 Age: 73 Exam(s ) PROCED URE INFORM ATION: Exam: XR Chest Exam date and time: 11/28/19 24 7:25 PM Age: 73 years old Clinic [...] proces s detect ed. Dictat ed and Ben ticate d by: Yohan Jennings MD. Olman ng:Katherine miller MD Access ion#=[id number] Ordermichelle d By: CC: ------ ------ ------ ------ ------ ------ ------ ------ ------ ------ ------ ------ ---- Dictat ed By: Report s zach 1924 Transc ribed By: Eliana Davis 1924 [...] at the addres s above. [facility]. [facility] [address], [place], [address] 11/29/2023 09:49:13 11/28/19 24 11/28/2023 vrad repor t Lenny t Name: Cristino Hart Unit #: [id number] Loc: ER Orderi ng Provid er: Accoun t #: [id number] Status : REG ER Primar y Care Provid er: Bharath Jett Date of Exam: Sex: F : 1949 Age: 73 Exam(s ) Addend um create d by Yohan Jennings MD on 11/28/19 7:52:2 9 PM EDT: THIS REPORT CONTAI NS FINDIN GS THAT MAY BE CRITIC AL TO LENNY RICCI. The findin gs were verbal ly commun [...] FINDIN GS: ANTERI OR CIRCUL ATION: Right purchasing intern al caroti d artery : Intrac ranial segmen t is patent with no signif icant stenos is. No aneury sm. Right middle cerebr al artery : No occlus ion or signif icant stenos is. No aneury sm. Right anteri or cerebr al artery : No occlus ion or signif icant stenos is. No aneury sm. Left purchasing intern al caroti d artery : Intrac ranial segmen t is patent with no signif icant stenos is. No aneury sm. Left middle cerebr al artery : No occlus ion or signif icant stenos is. No aneury sm. Left anteri or cerebr al artery : No occlus ion or signif icant stenos is. No aneury sm. BALANCE SHEET ANALYST IOR CIRCUL ATION: Right verteb ral artery : No occlus ion or signif icant stenos is. No aneury sm. Left verteb ral artery : No occlus ion or signif icant stenos is. No aneury sm. Basila r artery : No occlus ion or signif icant stenos is. No aneury sm. Right hospital clerk ior cerebr al artery : No occlus ion or signif icant stenos is. No aneury sm. Left hospital clerk ior cerebr al artery : No occlus [...] branch es of the anteri or or hospital clerk ior intrac ranial circul ation. 2. No [...] No dissec tion or occlus ion. Right purchasing intern al caroti d artery : No stenos is of the extrac ranial segmen t. No dissec tion or occlus ion. Right senior clinical data manager al caroti d artery : No occlus ion or stenos is of the origin . Left common caroti d artery : No stenos is. No dissec tion or occlus ion. Left purchasing intern al caroti d artery : No stenos is of the extrac ranial segmen t. No dissec tion or occlus ion. Left senior clinical data manager al caroti d artery : No [...] segmen ts of the right or left purchasing intern al caroti d arteri es by NASCET criter ia. REFERE NCES: NASCET CRITER IA. The degree of stenos is in the cervic al segmen t of the purchasing intern al caroti d artery is based on NASCET criter ia. Normal is no stenos is. Mild is less than 50% stenos is. Modera te is 50-69% stenos is. Severe is 70% to 99% stenos is. Total occlus ion is no detect able patent lumen. Dictat ed and Ben chaudhari d by: Yohan Jennings MD. Orderi ng:Katherine miller MD Access ion#=[id number] Ordere d By: CC: ------ ------ ------ ------ ------ ------ ------ ------ ------ ------ ------ ------ ---- Dictat ed By: Report s vrad 1848 Transc ribed By: Di Merge 1848 This is privil eged, confid ential inform ation intend ed only for the provid er named. Any use or distri bution by any person other than this [facility] is strict ly prohib ited. If you receiv e this report in error, please notify us immedi ately at and return the origin al report to us at the addres s above. Thank- you. eocurt [facility] [address] [place], [address] 11/29/2023 09:49:13 11/29/19 24 11/29/2023 x-ray imagi ng repor t Patien t Name: Brock Hart #: [id number] Loc: Orderi ng Provid er: Charlette Denton Accoun t #: [id number] Status : ADM EJ Primar y [...] TORY: RADIAT ION DOSE DELIVE RED: Andria davenport By: Charlette Denton CC: ------ ------ ------ [...] at the addres s above. Thank- you. [facility] [address] [place], [address] 11/29/2023 09:49:14 11/29/19 24 11/29/2023 CT imagi ng repor t Patien t Name: Cristino Hart Unit #: [id number] Loc: Ordertad ng Provid er: Charlette Denton t #: [id number] Status : DIS EJ Primar y [...] the caroti d bulbs and proxim al purchasing intern al caroti d arteri es there is minima l plaque withou t hemody namica lly signif icant stenos is eviden t. Both purchasing intern al caroti d arteri es are demons trated to be patent in the upper neck and skull base- caroti d canals . Neonatal Intensive Care Unit Nurse ior circul ation: Both verteb ral arteri [...] Brain W: Anteri or circul ation: Both purchasing intern al caroti d arteri es are patent [...] no aneury sms of these vessel s. Neonatal Intensive Care Unit Nurse ior circul ation: The basila r artery ascend s in the midlin e. Distal ly it gives off patent bilate ral superi or cerebe llar arteri es. Above this level the basila r artery termin ates as patent bilate ral hospital clerk ior cerebr al arteri es. There is also hospital clerk ior commun icatin g artery on the right side of the [place]. There is no eviden ce of aneury sm at the tip of the basila r artery nor elsewh ere in the [place]Wi llis. CT BRAIN: There is no [...] REPOSI TORY: All CT scans at this [facility] are submit ander to the [facility] Radiol ogy Data Regist ry (NRDR) Dose Index Regist ry (DIR) with the [place] radha martinez of Radiol ogy (ACR). RADIAT ION OPTIMI ZATION : [facility] use at least one of these dose optimi zation techni ques: automa ander exposu re contro l; mA and/or kV adjust ment per patien t size (inclu hudson target ed exams where dose is matche d to clinic al indica tion); or iterat ryne recons tructi on. 608- [phone]: Total DLP = 0.00 mGy-cm Ordere [...] this report in error, please notify us immnisa obrien at [phone] and return the origin al report to us at the addres s above. Thank- you. [facility] [address], [place], [address] 11/29/2023 14:50:21 12/30/19 24 12/30/2023 elect steph beatty am No observ ation record ed. [facility] [address] [place], [address], 12/30/2023 12:41:49 12/31/19 24 12/31/2023 rhyth m strip , EKG* No observ ation record ed. [email or web address] Not Available 12/31/2023 13:33:00 Result Notes None recorded. Problems Name Status Onset Date Resolution Date Notes Provider Name and Address Organization Details Recorded Time Hyperlipidemi a Active 2005 on repatha, statin intolerant MD [address], [place], [address] , [facility] 19:48:59 Rosacea Completed 200307/24/2023 Problem Code: L71.9; Problem Code Type: ICD-10; MD [address], [place], [address] , [facility] 19:37:39 Essential hypertension Active [address], [place], [address] , [facility] 19:38:21 Type 2 diabetes mellitus without complication [...] Code Type: ICD-10; MD Regan [address], [facility] [address] [place] [address] 4 15:19:41 Allergic rhinitis Completed 201407/24/2023 09/26/2018 Problem Code: J30.9; Problem Code Type: ICD-10; Sameera Short simona, [facility] 4 12:27:18 Mild intermittent asthma Completed 201507/24/2023 Problem Code: J45.20; Problem Code Type: ICD-10; MD Regan [address], [address] 4 19:38:59 Acquired absence of cervix and uterus Completed 201507/24/2023 Problem Code: Z90.710; Problem Code Type: ICD-10; MD Regan [address], [address] 4 19:39:15 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 Statin [...] Code Type: ICD-10; MD Regan [address], [facility] [address] [place] [address] 4 13:23:43 Disorder of skin and/or subcutaneous tissue Completed 201701/25/2018 Problem Code: L98.9; Problem Code Type: ICD-10; Not Available [facility] 3 04:19:16 Overflow incontinence of urine Completed 201807/24/2023 Problem Code: N39.490; Problem Code Type: ICD-10; MD Regan [address], [facility] [address] , [facility] 4 19:37:43 Screening mammography Completed 201806/25/2023 Problem Code: Z12.31; Problem Code Type: ICD-10; MD Regan [address], [facility] [address] [place] [address] 4 19:42:41 Hypercalcemia Active [address], [facility] [address] [place] [address] 4 19:40:41 Urge incontinence of urine Completed 201807/24/2023 Problem Code: N39.41; Problem Code Type: ICD-10; MD Regan [address] Dr, [address] 19:40:30 History of recurrent pneumonia Completed 201802/14/2019 Problem Code: Z87.01; Problem Code Type: ICD-10; Not Available [facility] 3 04:19:17 Squamous cell carcinoma of skin of face Completed 201907/24/2023 11/29/2019 - Comments only - Franny Davison MD - she will be scheduled for surgery in the near future, recommending holding apixaban 3 days prior to procedure and then restarting, Problem Code: C44.320; Problem Code Type: ICD-10; MD Regan [address], [address] 4 19:37:37 Major depression, single episode Completed 201907/24/2023 Problem Code: F32.9; Problem Code Type: ICD-10; MD Regan [address] Dr, [address] 4 19:37:48 Adjustment disorder with mixed anxiety and depressed mood Completed 201907/24/2023 Problem Code: F43.23; Problem Code Type: ICD-10; MD Regan [address] Dr, [address] 4 19:39:12 Neuropathy due to type 2 diabetes mellitus Active [address], [address] 4 19:48:19 Proteinuria Completed 202007/24/2023 Problem Code: R80.9; Problem Code Type: ICD-10; MD Regan [address], [address] 4 19:38:51 Hyperparathyr oidism Active [address], [address] 4 19:40:21 Vitamin B deficiency Active [address], [address] 4 19:38:27 Chest pain Completed 202107/24/2023 Problem Code: R07.89; Problem Code Type: ICD-10; MD Regan [address], [address] 4 09:51:51 Essential tremor Active 2021 Stable MD [address], [address] 4 19:20:59 Abnormal involuntary movement Completed 202107/24/2023 Problem Code: R25.8; Problem Code Type: ICD-10; MD Regan [address] Dr, [address] 4 19:36:57 Screening for cancer Completed 202106/25/2023 Problem Code: Z12.10; Problem Code Type: ICD-10; MD Regan [address], [address] 4 13:23:13 Cough Completed 202106/13/2022 Problem Code: R05.8; Problem Code Type: ICD-10; Not Available [facility] 3 04:19:19 Anesthesia of skin Completed 202206/25/2023 Problem Code: R20.0; Problem Code Type: ICD-10; MD [address], [place], [address] , [facility] 4 13:23:29 Ventricular tachycardia Completed 202207/24/2023 Problem Code: I47.20; Problem Code Type: ICD-10; MD [address], [facility] [address] , [facility] 4 19:37:02 Kidney stone Completed 202207/24/2023 Problem Code: N20.0; Problem Code Type: ICD-10; MD Regan [address], [address] 19:40:33 Syncope and collapse Completed 202207/24/2023 Problem Code: R55; Problem Code Type: ICD-10; MD [address], [facility] [address] , [facility] 19:38:44 History of disorder of digestive system Completed 202207/24/2023 Problem Code: Z87.19; Problem Code Type: ICD-10; MD [address], [place], [address] , [facility] 19:40:17 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 MD [address], [facility] [address] , [facility] 19:47:04 Ulcer of duodenum Completed 202207/24/2023 Problem Code: K26.9; Problem Code Type: ICD-10; MD [address], [facility] [address] , [facility] 4 19:37:54 Hemorrhagic esophagitis Completed 202207/24/2023 Problem Code: K20.91; Problem Code Type: ICD-10; MD [address], [place], [address] , [facility] 4 19:38:17 Acute posthemorrhag ic anemia Completed 202207/24/2023 Problem Code: D62; Problem Code Type: ICD-10; MD [address], [facility] [address] , [facility] 4 19:37:07 Hypertrophic cardiomyopath y Active [address], [facility] [address] [place] [address] 4 19:58:46 Urinary tract infectious disease Completed 201805/08/2019 Problem Code: N39.0; Problem Code Type: ICD-10; Not Available [facility] 3 04:19:23 Right lower quadrant pain Completed 201810/23/2019 Problem Code: R10.31; Problem Code Type: ICD-10; Not Available [facility] 3 04:19:23 Screening for osteoporosis Completed 201705/07/2022 Problem Code: Z13.820; Problem Code Type: ICD-10; Not Available [facility] 3 04:19:23 Breast composition Completed 201404/14/2016 Not Available [facility] 3 04:19:24 Parkinson's disease Completed 202102/03/2022 Problem Code: G20; Problem Code Type: ICD-10; Not Available [facility] 3 04:19:24 Diarrhea Completed 201805/07/2022 Problem Code: R19.7; Problem Code Type: ICD-10; Not Available [facility] 3 04:19:24 Chorea Completed 202004/10/2021 Problem Code: G25.5; Problem Code Type: ICD-10; Not Available [facility] 3 04:19:24 Blood chemistry outside reference range Completed 201609/24/2022 Problem Code: R79.89; Problem Code Type: ICD-10; Not Available [facility] 3 04:19:24 Dyspnea Completed 201810/23/2019 Problem Code: R06.02; Problem Code Type: ICD-10; MD Regan [address], [facility] [address] [place] [address] 4 19:42:49 Chest pain Completed 202004/10/2021 Problem Code: R07.89; Problem Code Type: ICD-10; MD Regan [address], [facility] [address] [place] [address] 4 09:51:51 Bleeding from nose Completed 201606/29/2017 Problem Code: R04.0; Problem Code Type: ICD-10; Not Available [facility] 3 04:19:25 Hyperglycemia due to type 2 diabetes mellitus Completed 201504/14/2016 Problem Code: E11.65; Problem Code Type: ICD-10; Not Available [facility] 3 04:19:26 Upper respiratory tract infection caused by Influenza A Completed 202109/08/2022 Problem Code: J09.x2; Problem Code Type: ICD-10; Not Available [facility] 3 04:19:26 Hypertensive disorder Completed 200603/17/2023 Not Available [facility] 3 04:19:26 Type 2 diabetes mellitus Completed 200503/17/2023 Not Available [facility] 3 04:19:27 Adult health examination Completed 201605/19/2017 Problem Code: Z00.00; Problem Code Type: ICD-10; Not Available [facility] 3 04:19:27 Exposure to communicable disease Completed 202011/26/2020 Problem Code: Z20.9; Problem Code Type: ICD-10; Not Available [facility] 3 04:19:27 Bilateral earache Completed 201705/09/2018 Problem Code: H92.03; Problem Code Type: ICD-10; Not Available [facility] 3 04:19:27 Chest pain Completed 202111/03/2021 Problem Code: R07.9; Problem Code Type: ICD-10; MD Regan [address], [facility] [address] [place] [address] 4 09:51:51 Increased frequency of urination Completed 201502/03/2022 Problem Code: R35.0; Problem Code Type: ICD-10; Not Available [facility] 3 04:19:28 Acute urinary tract infection Completed 202206/25/[address], [facility] [address] 4 13:23:38 Muscle weakness Active 2022 TORY FERGUSON RN [facility], [facility] 3 12:36:18 Screening mammography Completed 201507/24/2023 Problem Code: Z12.31; Problem Code Type: ICD-10; MD Regan [address], [facility] [address] [place] [address] 4 19:42:41 Generalized skin eruption caused by drug and medicament Completed 202207/24/2023 Problem Code: L27.0; Problem Code Type: ICD-10; MD Regan [address], [facility] [address] [place] [address] 4 19:42:34 Candidiasis of vulva Completed 202207/24/[address], [facility] [address] [place] [address] , [facility] 4 19:40:45 Automatic implantable cardiac defibrillator in situ Active 2022 [employer] Bi-V ICD. Placed 11/2022 at [facility] MD [address], [address] 4 19:44:34 Dizziness and giddiness Active 2022 Problem Code: R42; Problem Code Type: ICD-10; MD Regan [address] Dr, [address] 19:42:51 Dyspnea Completed 202207/24/2023 Problem Code: R06.09; Problem Code Type: ICD-10; MD Regan [address] Dr, [address] 19:42:49 Red blood cell finding Completed 202207/24/2023 Problem Code: R71.8; Problem Code Type: ICD-10; MD Regan [address]CG[address] Dr, [address] 19:42:46 Vulval and/or perineal noninflammato ry disorders Completed 202207/24/2023 Problem Code: N90.89; Problem Code Type: ICD-10; MD Regan [address] Dr, [address] 4 19:42:37 Dysuria Completed 202207/24/2023 Problem Code: R30.0; Problem Code Type: ICD-10; MD Regan [address] Dr, [address] 19:43:56 Atheroscleros is of coronary artery without angina pectoris Active 2022 s/p HUDSON to RCA MD [address], [address] , [facility] 19:43:[address] Paredes monitoring, concern for Parkinsism, Jay scan 11/09 negative. 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 S/p ICD implantation. MD Regan MCGEE Dr, [address] 19:46:00 Paroxysmal atrial fibrillation Active [address], [facility] [id number] [place] [address] 19:46:19 Heart failure with normal ejection fraction Active 2023 NYHA stage 3. Followed by [facility] [[email or web address]] cardiology, Carlos Ha NP, MD Regan [address], [facility] [address] [place] [address] 19:53:02 Dilated cardiomyopath y Active [address], [facility] [address] , [facility] 4 19:46:57 Type II diabetes mellitus uncontrolled Active [address], [place], [address] , [facility] 4 19:47:49 Type 2 diabetes mellitus without [...] Code Type: ICD-10; MD Regan [address], [place], [address] , [facility] 4 15:19:41 Recurrent urinary tract infection Active 2023 Sameera Short null, [facility] 4 12:36:35 Memory impairment Active 2023 Sameera Short null, [facility] 4 12:36:32 Hemiplegia and/or hemiparesis following stroke Active [address], [place], [address] , [facility] 4 07:09:33 Actinic keratosis Active [address], [place], [address] , [facility] 4 07:32:48 Tremor Active 2023 FILOMENA GREGG MA null, [facility] 4 10:14:28 Neuropathic pain Active 2023 FILOMENA GREGG MA null, [facility] 4 10:14:50 Cervical radiculopathy Active 2023 FILOMENA GREGG MA null, [facility] 4 10:15:16 Sciatica Active 2023 FILOMENA GREGG MA null, [facility] 4 10:15:27 Impairment of balance Active 2023 FILOMENA GREGG MA null, [facility] 4 10:16:14 Neuropathy Active [address], [facility] [address] , [facility] 4 11:01:37 Overweight Active [address], [facility] [address] , [facility] 4 09:42:35 Dyspnea on exertion Active [address], [facility] [address] [place] [address] 4 09:42:35 Chest pain Active 2023 Problem Code: R07.89; Problem Code Type: ICD-10; MD Regan MCGEE Dr, [facility] [address] , [facility] 4 09:51:51 Problem Notes None recorded. Procedures Surgical History Date Name Laterality Status Provider Name and Address Organization Details Recorded Time 12/09/19 23 endovascular insertion of drug eluting stent completed MD Regan CMGEE Dr, [facility] [address], [facility] 07/24/2023 19:50:55 01/20/20 13 Hysterectomy completed MD Regan MCGEE Dr, [facility] [address] [place] [address] 07/24/2023 19:39:58 Imaging Results None recorded. Procedure Notes None recorded. Medical Equipment None Reported. Allergies Allergen ID Allergen Name Allergen Category Reaction Reaction Severity Criticality Documentation Date Start Date Code Code System Note Provider Name and Address Organization Details Recorded Time 07754 Iodinated contrast media (substanc e) medicatio n Not available Not available Not available 04/30/20232002 94940 2004 SNOMED Aller gyNam e: 'IVP DYE'; Not Available [facility] 3 16:31:18 14448 Product containin g 3-hydroxy -3-methyl glutaryl- coenzyme A reductase inhibitor (product) medicatio n Not available Not available Not available 04/30/20232017 52143 009 SNOMED Not Available [facility] 3 16:31:19 94229 lisinopri l medicatio n cough mild Not available 04/30/20232015 27151 RxNorm cough Aller gyCod e: '3140 76'; Aller gyNam e: 'SARAH NOPRI L'; Aller gyCon ceptT ype: 'RX Norm' ; Not Available [facility] 3 16:31:19 99953 Zetia medicatio n myalgias (muscle pain) mild Not available 04/30/20232006 34961 9 RxNorm MYALG [place] Not Available [facility] 3 16:31:20 68959 Plaquenil medicatio n myalgias (muscle pain) mild Not available 04/30/20232006 44551 2 RxNorm MYALG [place] Not Available [facility] 3 16:31:20 32631 Cozaar medicatio n Not available Not available Not available 04/30/20232004 07665 8 RxNorm Not Available [facility] 3 16:31:20 81590 atenolol medicatio n cough mild low 05/05/20232022 1202 RxNorm LACEY DORMAN [facility] 3 12:16:33 47258 acetamino phen / oxycodone medicatio n rash moderate high 05/05/20232022 97672 3 RxNorm LACEY DORMAN [facility] 3 12:17:17 19466 Plavix medicatio n rash severe high 05/05/20232022 48924 2 RxNorm BHARATH JETT MD [address], [place], [address] [place] [address] 4 19:41:48 74018 ticagrelo r medicatio n abdominal pain severe Not available 07/02/20232022 41647 32 RxNorm Aller gyRea ction : 'Carlos Manuel roint estin al,'; Aller gyNam e: 'ILA GRELO R'; Not Available [facility] 4 05:10:26 20066 aspirin medicatio n Not available Not available [facility] 07/23/2023 1191 RxNorm GI bleed BHARATH JETT MD [address], [place], [address] , [facility] 4 19:41:13 39492 Jardiance medicatio n Not available Not available [facility] 07/24/2023 42119 59 RxNorm recur rent yeast infec tions and UTIs MD Regan [address]CG[address] Dr, [place], [address] [place] [address] 4 19:42:15 Medications Name Sig Start Date [...] tab by mouth daily 05/10 completed per [facility] endocrin ology Not Available Not Available Not [...] completed Not Available Not Available Not Available [employer] Ultra Test strips Test blood glucose three [...] once a day 11/17 completed started at [facility] discharg e followin g recurren [...] for nausea and vomiting 11/17 completed Per [facility] ED 11/02/22 Not Available Not [...] COUGHING FITS, WHEEZE, SHORTNES S OF BREATH 12/10/ 2022 12/17 /2022 completed Not Available Not Available Not Available [...] with humalog pen if preferre d by [facility] e ID# [id number] Not Available Not Available Not Available [...] cap by mouth twice daily [facility]/24 [facility] Not Available Not Available [...] 2nd Gen Pen Needle 32 gauge x /32 Use 1 needle subcutan eously four times [...] Not Available Not Available [employer] Melanie 3 Edna Use as directed active Not Available Not Available No t Available Vitals Date Recorded Body height Body mass index (BMI) Body weight Body temperature Oxygen saturation Oxygen saturation in Arterial blood by Pulse oximetry Heart rate Systolic blood pressure Diastolic blood pressure Provider Name and Address Organization Details Last Updated DateTime 4 162.56 cm 26.8 kg/m2 53529.4 1 g 97.8 [degF] 97 % 97 % 71 /min 118 mm[Hg] 70 mm[Hg] FILOMENA GREGG MA [facility] 14:04:28 Social History Question Answer Notes LastModified by Organizat ion Details LastModified Time Tobacco Smoking Status Never Smoker LACEY DORMAN, [facility] 05/05/2023 13:38:34 What Is Your Level Of Alcohol Consumption? None Information not available 05/05/2023 Date Care Plan Printed: 08/12/2023 First Printed 04/26/23 (old System) Information not available 08/12/2023 Assigned Rn Case Manager Hospice: Leisa Segovia Information not available 08/12/2023 [facility] The Lead Rn Case Manager Hospice? Yes Information no t available 08/12/2023 Level [...] preservative free, adsorbed 08/05/2021 completed Not Available [facility] 04/30/2023 05:10:29 Tdap 12/18/2011 completed Not Available [facility] 05:10:29 zoster live 07/12/2012 completed Not Available [facility] 04/30/2023 05:10:29 Pneumococcal conjugate PCV 13 06/29/2017 completed Not Available [facility] 04/30/2023 05:10:29 Influenza, high-dose, trivalent, PF 05/09/2018 completed Not Available [facility] 04/30/2023 05:10:29 Td(adult) unspecified formulation 10/01/2005 completed Not Available [facility] 04/30/2023 05:10:30 Td(adult) unspecified formulation 12/18/2011 completed Not Available [facility] 04/30/2023 05:10:30 Td(adult) unspecified formulation 04/06/1996 completed Not Available [facility] 04/30/2023 05:10:30 Influenza, split virus, trivalent, preservative 03/13/2015 completed Not Available [facility] 04/30/2023 05:10:30 Influenza, split virus, trivalent, preservative 04/14/2016 completed Not Available [facility] 04/30/2023 05:10:30 Influenza, split virus, quadrivalent, preservative 04/27/2017 completed Not Available [facility] 04/30/2023 05:10:31 Influenza, MDCK, quadrivalent, PF 05/08/2019 completed Not Available [facility] 04/30/2023 05:10:32 Influenza, high-dose, quadrivalent, PF 04/21/2022 completed Not Available [facility] 04/30/2023 05:10:32 COVID-19, mRNA, LNP-S, PF, 100 mcg/0.5mL dose or 50 mcg/0.25mL dose 11/03/2021 completed Not Available [facility] 04/30/2023 05:10:32 COVID-19, mRNA, LNP-S, PF, 30 mcg/0.3 mL dose 08/19/2020 completed Not Available [facility] 04/30/2023 05:10:32 COVID-19, mRNA, LNP-S, PF, 30 mcg/0.3 mL dose 09/16/2020 completed Not Available [facility] 04/30/2023 05:10:32 COVID-19, mRNA, LNP-S, PF, 30 mcg/0.3 mL dose 04/10/2021 completed Not Available [facility] 04/30/2023 05:10:33 COVID-19, mRNA, LNP-S, bivalent, PF, 30 mcg/0.3 mL dose 05/07/2022 completed Not Available [facility] 04/30/20 05:10:33 pneumococcal polysaccharide PPV23 09/26/2018 completed Not Available [facility] 2022 05:10:34 pneumococcal polysaccharide PPV23 04/06/1996 completed Not Available [facility] 2022 05:10:34 influenza, unspecified formulation 03/04/2020 completed Not Available [facility] 04/30/2023 05:10:34 Influenza, high-dose, quadrivalent, PF 03/05/2023 completed Not Available [facility] 07/02/2023 05:30:45 COVID-19, mRNA, LNP-S, PF, arthur-sucrose, 30 mcg/0.3 mL 03/25/2023 completed Not Available [facility] 07/02/2023 05:30:45 Past Encounters Encounter ID Performer Location Encounter Start Date Encounter Closed Date Diagnosis/Indication Diagnosis SNOMED-CT Code [id number] BHARATH JETT MD [address] [address] 10/04/2023 15:05:30 10/04/2023 16:32:57 Type II diabetes mellitus uncontrolled 860831474 Memory impairment 193050 595 [id number] BHARATH JETT MD [address] [address] 11/03/2023 13:46:57 11/03/2023 14:49:28 Type II diabetes mellitus uncontrolled [id number] Heart fail ure with normal ejection fraction 606922248 Hemiplegia and/or hemiparesis following stroke [id number] Bradykinesia 405271319 Memory impairment 361920 006 Actinic keratosis Goals Section Goal Description Status Start Date [...] Member ID Acharya Member ID Guarantor Name 11/03/2023 1 [facility] (MEDICARE REPLACEMENT/A DVANTAGE - PPO) [id number] Joanna Hart [id number] Joanna Hart Notes Date Note Type Note Provider Name and Address Organization Details Recorded Time 11/03/2023 text/html HPI Notes: Cristino martinez and [...] graduated cardiac rehab but continues to pay [id number] to keep going. She has really enjoyed [...] hand, can do cryotherapy at next appointment. BAHRATH JETT MD [address], [place], [address], [facility], [facility]. 11/04/2023 07:33:39 OBGyn Episode No OBEpisode recorded.
--- OUTSIDE RECORDS SUMMARY | 2024-01-12 11:18 | XMS_ITS | Encounter Summary ---
Author Organization [facility] Address [address] [place] [address] Care Team Providers Care Nutrition Teacher Name Role Phone Carlos Ha WAREHOUSE DISTRIBUTION ASSOCIATE Unavailable [phone] Elba Jett MD Primary Care Provider [phone] Encounter Details Date Type Department Care Team (Late st Contact Info) Description 12/13/2023 Lab Requisition [facility] Pathology & Laboratory Medicine - [facility] [address] [place], [place] [phone] Outr Resulting Lab, Provider Social History Tobacco [...] Info) Description 03/08/2024 9:30 EDT Ancillary Procedure [facility] Cardiology - [address] [place], [place] [phone] 03/08/2024 10:15 EDT Ancillary Procedure [facility] Cardiology - [facility] [address] [place] [address] 04/05/2024 10:00 EDT Ancillary Procedure [facility] [address] [place] [id number] 04/05/2024 10:00 EDT Office Visit [facility] [address] [place] [phone] Carlos Ha, RAHEEM [address] [place] [address]-[address] [place] [address] documented as of this encounter [...] 60.0 55.8 - 66.1 % 12/14/2023 12:34 [facility] Albumin g/dL 3.8 3.6 - 5.2 g/dL 12/14/2023 12:34 [facility] Alpha-1 % 4.9 2.9 - 4.9 % 12/14/2023 12:34 [facility] Alpha-1 g/dL 0.30 0.15 - 0.40 g/dL 12/14/2023 12:34 [facility] Alpha-2 % 11.4 7.1 - 11.8 % 12/14/2023 12:34 [facility] Alpha-2 g/dL 0.70 0.50 - 1.00 g/dL 12/14/2023 12:34 [facility] Beta % 13.4(H) 8.4 - 13.1 % 12/14/2023 12:34 [facility] Beta g/dL 0.80 0.60 - 1.20 g/dL 12/14/2023 12:34 [facility] Gamma % 10.3(L) 11.1 - 18.8 % 12/14/2023 12:34 [facility] Gamma g/dL 0.60 0.60 - 1.60 g/dL 12/14/2023 12:34 [facility] SPEP Comment No apparent monoclonal protein seen on serum electrophoresis 12/14/2023 12:34 [facility] Comment:See scanned/suppleme ntary report. Total Protein 6.3 6.3 - 8.2 g/dL 12/14/2023 12:34 [facility] Blood VENOUS BLOOD / Unknown 12/13/2023 9:14 EDT 12/13/2023 17:12 EDT Provider Outr Resulting Lab CHEMISTRY & BLOOD GAS ORDERABLES [facility] [address] [place], [place] [id number] * PROTEIN, TOTAL (12/13/2023 9:14 EDT) Blood VENOUS BLOOD / Unknown 12/13/2023 9:14 EDT 12/13/2023 17:12 EDT Provider Outr Resulting Lab CHEMISTRY & BLOOD GAS ORDERABLES Performing Organization Address City/[facility]/ZIP Co de Phone Number [facility] [address] [place] [address] * LYME AB (12/13/2023 9:14 EDT) Lyme Ab Negative Negative 12/14/2023 13:36 EDT [facility] Blood VENOUS BLOOD / Unknown 12/13/2023 9:14 EDT 12/13/2023 17:12 EDT Provider Outr Resulting Lab IMMUNOLOGY A ND SEROLOGY ORDERABLES Performing Organization Address [facility] Co de Phone Number [facility] [address] [place] [address] documented in this encounter Visit Diagnoses Not on filedocumented in this encounter Care Teams Nutrition Teacher Relationship Specialty Start Date End Date Elba Jett MD [address] [place] [id number] PCP - General Family Medicine - Primary Care 05/18/23 Carlos Ha NP [address] [place] [address] [address] [place] [address] Consulting Clinician Cardiovascular Disease 09/14/21 documented as of this encounter
--- OUTSIDE RECORDS SUMMARY | 2024-01-12 11:19 | XMS_ITS | Encounter Summary ---
Author Organization [facility] Address [address] [place] [address] Care Team Providers Care Supervisor Rose Grading Name Role Phone Carlos Ha ASSOCIATE PROFESSOR OF SURGERY Unavailable [phone] Elba Jett MD Primary Care Provider Encounter Details Date Type Department Care Team (Late st Contact Info) Description 06/15/[address] [address] Nurse, [facility] Social History Tobacco Use Types [...] [facility] - [address] [place] [address] 03/08/2024 10:15 EDT Ancillary Procedure [facility] Cardiology - [facility] [address] [place], [place] [phone] 04/05/2024 10:00 EDT Ancillary Procedure [facility] [address] [place] [id number] 04/05/2024 10:00 EDT Office Visit [facility] [address] [place] [phone] Carlos Ha NP [address] [place] [phone] documented as of this encounter Visit Diagnoses Not on filedocumented in this encounter Care Teams Supervisor Rose Grading Relationship Specialty Start Date End Date Elba Jett MD [address] [place] [address] PCP - General Family Medicine - Primary Care 05/18/23 Carlos Ha ASSOCIATE PROFESSOR OF SURGERY [address] [place] [address] [address] Consulting Clinician Cardiovascular Disease 09/14/21 documented as of this encounter
--- OUTSIDE RECORDS SUMMARY | 2024-01-12 11:19 | XMS_ITS | Encounter Summary ---
Author Organization [facility] Address [address] [place] [address] Care Team Providers Care Market Research Analyst Name Role Phone Carlos Ha BOX PACKER Unavailable [phone] Elba Jett MD Primary Care Provider [phone] Reason for Visit * Reason Onset Date Comments Appointment Related 06/17/2023 Encounter Details Date Type Department Care Team (Late st Contact Info) Description 06/17/2023 Telephone [facility] [address] [place] [address] Carlos Ha, BOX PACKER [address] [facility] [address] [place] [address] Appointment Related Social History Tobacco [...] any mention of appts other than the [facility] that was already rescheduled. No imaging or lab orders without results. * Telephone Encounter - Eli Humphreys - 06/17/2023 1004 EST calling in to check on an appt he thought he cancelled and did not R/S. I only saw the [facility] appt in there. Patient states that already had that done with us. Can we help him figure out who he needs to be speaking with. Thanks documented in this encounter Plan of Treatment Upcoming Encounters Date Type Department Care Team (Late st Contact Info) Description 03/08/2024 9:30 EDT Ancillary Procedure [facility] [place] [address] 03/08/2024 10:15 EDT Ancillary Procedure [facility] - [facility] [place] [address] 04/05/2024 10:00 EDT Ancillary Procedure [facility] [address] [place] [address] 04/05/2024 10:00 EDT Office Visit [facility] [address] [place] [address] Carlos Ha NP [address] [place] [phone] documented as of this encounter Visit Diagnoses Not on filedocumented in this encounter Care Teams Market Research Analyst Relationship Specialty Start Date End Date Elba Jett MD [address] [place] [address] PCP - General Family Medicine - Primary Care 05/18/23 Carlos Ha NP [address] [place] [address] Consulting Clinician Cardiovascular Disease 09/14/21 documented as of this encounter
--- OUTSIDE RECORDS SUMMARY | 2024-01-12 11:19 | XMS_ITS | Encounter Summary ---
Author Organization [facility] Address [address] [place] [address] Care Team Providers Care Wood Getter Name Role Phone Bryant Crain MD Primary Care Provider [phone] Carlos Ha BUS CLEANER Unavailable [phone] Elba Jett MD Primary Care Provider [phone] Encounter Details Date Type Department Care Team (Late st Contact Info) Description 04/16/2023 Lab Requisition [facility] Pathology & Laboratory Medicine - [facility] [address] [place] [address] Outr Resulting Lab, Provider Social [...] Info) Description 03/08/2024 9:30 EDT Ancillary Procedure [facility] Cardiology - [place] [address] [address] [place], [place] [phone] 03/08/2024 10:15 EDT Ancillary Procedure [facility]iology - [place] [address] [place] [address] 04/05/2024 10:00 EDT Ancillary Procedure [facility] [address] [place] [id number] 04/05/2024 10:00 EDT Office Visit [facility] [address] [place] [address] Carlos Ha NP [address] [place] [address] [place] [phone] documented as of this encounter Procedures Procedure Name Priority Date/Time Associated Diagnosis Comments CALCIUM, URINE 24HR Routine 04/16/2023 8:30 EDT documented in this encounter Results * (ABNORMAL) CALCIUM, URINE 24HR (04/16/2023 8:30 EDT) Calcium, Urine 3.9 See Note mg/dL 04/17/2023 8:13 EDT [facility] Comment: NOTE: Reference range not established Calcium, Urine 24 hr 57(L) 100 - 300 mg/24hr 04/17/2023 8:13 EDT [facility] Comment:Reference range assu mes a normal daily intake of calcium between 600 - 800 mg/day. Urine Volume 1,450 mL 04/17/2023 8:13 EDT [facility] Urine Collection Period 24.0 Hours 04/17/2023 8:13 EDT [facility] Urine 24 HOUR URINE SPECIMEN / Unknown 04/16/2023 8:30 EDT 04/16/2023 22:01 EDT Provider Outr Resulting Lab URINALYSIS O RDERABLES [facility] [address] [place] [address] documented in this encounter Visit Diagnoses Not on filedocumented in this encounter Care Teams Wood Getter Relationship Specialty Start Date End Date Bryant Crain MD [address] [place] [address] PCP - General 05/04/15 05/17/23 Elba Jett MD [address] [place] [phone] PCP - General Family Medicine - Primary Care 05/18/23 Carlos Ha NP [address] [place] [address] [address] Consulting Clinician Cardiovascular Disease 09/14/21 documented as of this encounter
--- OUTSIDE RECORDS SUMMARY | 2024-01-12 11:19 | XMS_ITS | Encounter Summary ---
Author Organization [facility] Address [address] [place] [address] Care Team Providers Care Oriental Rug Stretcher Name Role Phone Carlos Ha WATER TAXI FERRY OPERATOR Unavailable [phone] Elba Jett MD Primary Care Provider [phone] Reason for Visit * Reason Onset Date Comments Patient Outreach 06/03/2023 Encounter Details Date Type Department Care Team (Late st Contact Info) Description 06/03/2023 [facility] Clinic [address] [place] [address] Carlos Ha, WATER TAXI FERRY OPERATOR [address] [facility] [place] [address] Patient Outreach Social History Tobacco [...] she can cancel device check scheduled at [facility]. She is not currently taking Jardiance. RUTH to Carlos * Telephone Encounter - Carlos Ha NP - 06/03/2023 1404 EST Can you also have her increase her Spironolactone to 25 mg daily. Labs look good. * Telephone Encounter - Fan Marinelli RN - 06/03/2023 1241 EST Carlos- Does the patient need to have device checked in 2 weeks at [facility]? * Telephone Encounter - Natalie Aguirre - 06/03/2023 1203 EST Lefty and Joanna came to check out and wanted to know if Joanna's Device check that is scheduled with [facility] on 06/18 is still needed. Joanna stated that she thought that she had her device checked at today's appointment. Patient asking that I give her a call back when I find out if [facility] needed. documented in this encounter Plan of Treatment Upcoming Encounters Date Type Department Care Team (Late st Contact Info) Description 03/08/2024 9:30 EDT Ancillary Procedure [facility] - [address] [place] [address] 03/08/2024 10:15 EDT Ancillary Procedure [facility] - [address] [place] [address] 04/05/2024 10:00 EDT Ancillary Procedure [facility] [address] [place] [phone] 04/05/2024 10:00 EDT Office Visit [facility] [address] [place] [phone] Carlos Ha NP [address] [place] [address]-[address] [place] [address] documented as of this encounter Visit Diagnoses Not on filedocumented in this encounter Care Teams Oriental Rug Stretcher Relationship Specialty Start Date End Date Elba Jett MD [address] [place] [address] PCP - General Family Medicine - Primary Care 05/18/23 Carlos Ha NP [address] [place] [address] [phone] Consulting Clinician Cardiovascular Disease 09/14/21 documented as of this encounter
--- OUTSIDE RECORDS SUMMARY | 2024-01-12 11:19 | XMS_ITS | Encounter Summary ---
Author Organization [facility] Address [address] [place] [address] Care Team Providers Care Lithographic Press Operator Name Role Phone Bryant Crain MD Primary Care Provider [phone] Carlos Ha INVESTIGATOR Unavailable [phone] Reason for Visit * Reason Comments Follow-up Encounter Details Date Type Department Care Team (Latest Contact Info) Description 05/06/2023 14:30 EST Telemedicine [facility] Clinic [address] [place] [address] Carlos Ha, INVESTIGATOR [address] [facility] [place] [address] Dilated cardiomyopathy (HCC-CMS) (Primary Dx); [...] encounter Progress Notes * Dilcia Carlos L, INVESTIGATOR - 05/06/2023 1430 EST [facility] Telephone Visit The concept of ???Telemedicine?? has [...] History: Diagnosis Date ??? Cerebrovascular accident (CVA) ([facility]) 06/01/2019 ??? Diabetes mellitus, type 2 ([facility]) 01/26/2011 On metformin On metformin ??? Essential hypertension 06/01/2019 ??? Mixed hyperlipidemia 06/05/2019 ??? Nonrheumatic aortic valve stenosis 06/01/2019 ??? Paroxysmal atrial fibrillation ([facility]) 06/01/2019 SH/FH: reviewed and updated MEDICATIONS: Medications Prior to Today's Visit Medication Sig ??? acetaminophen (TYLENOL) 650 mg CR tablet 2 tab(s) orally twice a day, only as needed ??? apixaban (ELIQUIS) 5 mg tablet Take 1 Tablet by mouth 2 times daily. ??? BD ULTRA-FINE MICRO PEN NEEDLE 32 gauge x 1/4 needle ??? blood glucose meter by jim [...] ??? Propoxyphene N-Acetaminophen Other reaction(s): Hallucinations ??? Lreeuqw-Dpk-Hqi Reductase Inhibitors ??? Trulicity [Dulaglutide] Gi Side [...] Procedure [facility] - [facility] [address] [place] [address] 03/08/2024 10:15 EDT Ancillary Procedure [facility] - [facility] [address] [place] [address] 04/05/2024 10:00 EDT Ancillary Procedure [facility] [address] [place] [phone] 04/05/2024 10:00 EDT Office Visit [facility] [address] [place] [phone] Carlos Ha NP [address] [place] [phone] documented as of this encounter Visit Diagnoses Diagnosis Dilated cardiomyopathy (HCC-CMS)- Primary Other primary cardiomyopathies Drug rash Dermatitis due to drugs and medicines taken internally documented in this encounter Care Teams Lithographic Press Operator Relationship Specialty Start Date End Date Bryant Crain MD [address] [place], [place] [phone] PCP - General 05/04/15 05/17/23 Carlos Ha NP [address] [place] [address] [address] Consulting Clinician Cardiovascular Disease 09/14/21 documented as of this encounter
--- OUTSIDE RECORDS SUMMARY | 2024-01-12 11:19 | XMS_ITS | Encounter Summary ---
Author Organization [facility] Address [address] [place] [address] Care Team Providers Care Track Template Maker Name Role Phone Carlos Ha SENIOR FRONT END WEB DEVELOPER Unavailable [phone] Elba Jett MD Primary Care Provider [phone] Reason for Visit * Reason Comments Hyperlipidemia Atrial Fibrillation Hypertension Encounter Details Date Type Department Care Team (Latest Contact Info) Description 10/05/2023 15:[address] [facility] Clinic [address] [place] [address] Carlos Ha, SENIOR FRONT END WEB DEVELOPER [address] [facility] [place] [address] Cardiomyopathy ([facility]) (Primary Dx) Social History Tobacco Use Types [...] this encounter Progress Notes * Carlos Ha, SENIOR FRONT END WEB DEVELOPER - 10/05/2023 1500 EDT CC: Hyperlipidemia, Atrial [...] was cancelled as she presented to [facility] ED on the day it was scheduled. She presented to [facility] on with complaints of fatigue, [...] signed up for Phase III Cardiac Rehab [facility] Cryptogenic stroke (left MCA) 2016 with Wave[employer] loop 2017. ASA recently started during admission at [facility] 08/2022 Paroxysmal atrial fibrillation (2 hr episode noted on monitor 2018.Started on Eliquis. No further episodes noted) NSVT (1 episode August 2019 with negative MPI) AVB type I and II - noted on athletic monitor during recent admission Hypertension, Hyperlipidemia (LDL 65 in 2021: She has been intolerant to multiple statins now on REPATHA) DM2 (A1C 7.1) CKD III Kidney stone 11/02 passed Duodenal ulcer and esophagitis with acute GIB admit to [facility] 11/11-11/14. D/C on Protonix. ?Parkinson's Disease HCM -septal thickness 17 mm with very high burden LGE on MRI, epsides of NSVT. SH Lives in [place] with spouse Has three grown children She [...] x 1/4 needle blood glucose meter by [facility] (non-drug; combo route) route daily. One touch [...] VICKY 2 READER) mis 1 Device by [facility] (non-drug; combo route) route daily. Dispense one [...] tablet Take 0.5 Tablets by mouth daily. [facility] No facility-administered medications prior to visit. ALLERGIES: [...] Plavix [Clopidogrel] Propoxyphene N-Acetaminophen Other reaction(s): Hallucinations Mllmlye-Yyw-Cya Reductase Inhibitors Trulicity [Dulaglutide] Gi Side effect [...] EXAM: Alert and oriented x3. Gait normal [facility] Cardiology Device Visit Technical Training Specialist: [employer] Device Type: Multiple 3D DESIGNER-D Service: Office Visit Implant Date: 03/15/2023 Indication: [...] dilation (TID) with a value of 1.4 [facility] 12/08/2022 CORONARY ARTERIES: The coronary circulation [...] from base to apex. The distal apex ([id number]) is concentrically involved by delayed enhancement. Left [...] 90% stenosis of RCA found on angiography. [facility] completed 12/08/22 with successful RCA stenting. [...] and spironolactone -Improved symptoms with Bi-V ICD 3D DESIGNER -Scheduled to see Dr. Sebastian 02/2024 with [...] EDT Ancillary Procedure [facility] - [address] [place], [place] [phone] 03/08/2024 10:15 EDT Ancillary Procedure [facility] - [address] [place] [address] 04/05/2024 10:[address] [facility] Clinic [address] [place] [phone] 04/05/2024 10:[address] [facility] Clinic [address] [place] [phone] Carlos Ha NP [address] [place] [address]-[address] [place] [address] documented as of this encounter Procedures Procedure Name Priority Date/Time Associated Diagnosis Comments CARDIAC IMPLANT CHECK - IN CLINIC Routine 10/05/2023 15:54 EDT Cardiomyopathy ([facility]) documented in this encounter Results * CARDIAC [...] cardiomyopathies documented in this encounter Care Teams Track Template Maker Relationship Specialty Start Date End Date Elba Jett MD [address] [place] [phone] PCP - General Family Medicine - Primary Care 05/18/23 Carlos Ha NP [address] [place] [address] [address] [place] [phone] Consulting Clinician Cardiovascular Disease 09/14/21 documented as of this encounter
--- OUTSIDE RECORDS SUMMARY | 2024-01-12 11:19 | XMS_ITS | Encounter Summary ---
Author Organization [facility] Address [address] [place] [address] Care Team Providers Care Traffic Sergeant Name Role Phone Bryant Crain MD Primary Care Provider [phone] Carlos Ha GUEST SERVICES REPRESENTATIVE Unavailable [phone] Reason for Visit * Auth/Cert (Routine) Specialty Diagnoses / Procedures [facility] Referred To Contact Diagnoses Hypertrophic cardiomyopathy (HCC-CMS) PAF (paroxysmal atrial fibrillation) (HCC-CMS) Hypertrophic cardiomyopathy (HCC-CMS) (HCC) [I42.2] PAF (paroxysmal atrial fibrillation) (HCC-CMS) (HCC) [I48.0] Procedures KS INSJ/RPLCMT PERM DFB W/TRNSVNS LDS 1/DUAL CHMBR ICD New System Dual Lefty Moss MD [address] [phone] Referral ID Status Reason Start Date Expiration Date Visits Re quested Visits Authorized [id number] 02/16/2023 1 1 Encounter Details Date Type Department Care Team (Late st Contact Info) Description 03/15/2023 8:30 EDT - 03/15/2023 10:30 EDT Surgery [place] [address] EP Lab [address] [place], [place] [address] Lefty Moss MD [address] [place] [phone] ICD BI-V New Surgery Details Date/Time Status Location OR Service Patient Class Case Class Case Type Trauma Case? 03/15/23 0830 Posted [facility] EP Lab EP Lab 2 Cardiovascular [...] Noted ??? *PAF (paroxysmal atrial fibrillation) (HCC-CMS) ([facility]) 02/16/2023 ??? Hypertrophic cardiomyopathy (HCC-CMS) ([facility]) Resolved Hospital Problems No resolved problems to display. Principal Procedure: Implantable Cardioverter Defibrillator (ICD) Date: 03/15/2023 Procedure:??Biventricular ICD implant Indication:??heart block, ventricular tachycardia, cardiomyopathy and high risk of sudden cardiac felled seam operator chainstitch:??Lefty Moss MD Fellow: No Fellow ?? Brief narrative: RA to RAA RV to bundle of his RV to RV apical septum Device mode: DDD Lower rate: 60 Generator Manufactor: [employer] Contrast:?? 0 cc No immediate complication noted [...] Pacemaker device interrogation in 3 months at [facility] cardiology on 06/18/23 Allergies and Immunizations [...] ??? Propoxyphene N-Acetaminophen Other reaction(s): Hallucinations ??? Fpvnmxg-Ljj-Ytc Reductase Inhibitors ??? Trulicity [Dulaglutide] Gi Side [...] 03/16/2023 10:30 AM ?? Clinical History/comments: s/p featheredger and reducer machine-d, heart block, cardiomyopathy; ?? Comparison: 1 day prior. ?? Technique: Frontal and lateral views of the chest. ?? Findings: ?? Lungs: Normal. Pleura/diaphragms: Normal.XR CHEST 2 VIEWS 03/16/2023 10:30 AM ?? Clinical History/comments: s/p featheredger and reducer machine-d, heart block, cardiomyopathy; ?? Comparison: 1 day [...] 11/11/2022 Discharge Follow Up Appointments Scheduled with [facility] Upcoming Appointments Mar 31, 2023 14:30 PPM/ICD Device Check - In Clinic with [facility] CARDIAC DEVICE 1 [facility] (--) [address] [place] [address] Please bring any insurance information and a copayment if required by your insurance company. Mar 31, 2023 14:30 Office Visit Medium with Carlos Ha NP [facility] Clinic (--) [address] [place] [address] May 18, 2023 14:00 Office Visit with Randy Sebastian MD [facility] - [place] (--) [address] [place] [address] Kerline Ann PA-C 03/16/2023 12:03 The patient [...] check: March 25 at 11:00am Dr. Crain [phone] Device check: June 18 at 1:00pm Device Clinic [facility] Cardiology [phone] Should the above appointment(s) not work, please call the number listed to reschedule a time that works for you. We are here to help, so should you need assistance prior to your procedure, please feel free to call anyone listed below with questions. EP Senior Instructional Designer - [phone]-if you need to reschedule your procedure [facility] Device Clinic nurse - [phone]~ Zakia Please let me know you have [...] as soon as [place] [phone]. Do not hesitate to call emergency personnel [...] you travel by air please inform the freight and passenger agent & airport security of your device (ICD). You must be hand searched verses magnetic field. Know your medicines, keep a list with you and take them as prescribed. Family members should learn CPR and are encouraged to become certified if they are capable of doingso. Contact the [employer] for more details. Please tell [...] 4 times /year. Our Outpatient Cardiology Clinic/ [facility] is located at [address] [place] [address] in [place]. These appointments will take approximately 20 minutes and you will be reminded of this date by mail. Clinics are also held in [facility]/[place], [place], [facility]/[place], [facility], [facility]/[place],[facility]/ [place] and [facility]/[place]. We will make arrangements for your follow [...] hesitate to call the cardiac arrhythmia service [phone] or [phone] or1 extension [phone]. For scheduling of appointments and related questions, please call [phone] or extension [phone]. documented in this encounter Medications at Time [...] use of insulin ([facility]) by misc (non-drug; combo route) route daily. [...] glucose scanning reader (FREESTYLE LO [address] [facility] [address] [facility] (non-drug; combo route) route daily. Dispense one [...] 01/18/2020 lancets/blood glucose strips (ONE TOUCH COMBO [facility]) -to test blood sugar [...] Means Destination Comment s Home or Self Halfway documented in this encounter Progress Notes * [...] -Continue current management -Post procedure x-ray -Hold ARCHITECTURAL PROJECT CAPTAIN eliquis 48 hours post procedure Kerline Ann PA-C 03/15/2023 11:50 * Zakia Dixon RN - 03/08/2023 1003 EDT Images from the original note were not included. [address] [place] [address] 03/08-I spoke with pt and her regarding [...] you go home, you will need a driver recruiter. 14. The pre-registration department may call you [...] or you may prefer to have your driver recruiter drop you off at the front entrance. 1. The registration staff will direct you to the surgical waiting room. Please check in with the operator receptionist and they will notify pre op of [...] check: March 25 at 11:00am Dr. Crain [phone] Device check: June 18 at 1:00pm Device Clinic [facility] Cardiology [phone] Should the above appointment(s) not work, please call the number listed to reschedule a time that works for you. We are here to help, so should you need assistance prior to your procedure, please feel free to call anyone listed below with questions. EP Senior Instructional Designer - [phone]-if you need to reschedule your procedure [facility] Device Clinic nurse - [phone] Koehler Please let me know you have [...] orders for this visit: Hypertrophic cardiomyopathy (HCC-CMS) ([facility]) - CASE REQUEST EP LAB - CASE REQUEST EP LAB PAF (paroxysmal atrial fibrillation) (HCC-CMS) ([facility]) - CASE REQUEST EP LAB - CASE [...] History: Diagnosis Date ??? Cerebrovascular accident (CVA) ([facility]) 06/01/2019 ??? Diabetes mellitus, type 2 ([facility]) 01/26/2011 On metformin On metformin ??? Essential [...] ??? Propoxyphene N-Acetaminophen Other reaction(s): Hallucinations ??? Rxfybci-Ujl-Mam Reductase Inhibitors ??? Trulicity [Dulaglutide] Gi Side [...] glucose scanning reader (FREESTYLE LO [address] [facility], [address] [facility] (non-drug; combo route) route daily. Dispense one [...] ??? lancets/blood glucose strips (ONE TOUCH COMBO [facility]), -to test blood sugar - twice daily [...] cardiomyopathy and high risk of sudden cardiac felled seam operator chainstitch: Lefty Moss MD Fellow: No Fellow Brief narrative: RA to RAA RV to bundle of his RV to RV apical septum Device mode: DDD Lower rate: 60 Generator Manufactor: [employer] Contrast: 0 cc No immediate complication noted [...] The patient was considered stable to transfer impact retail service merchandiser will give 1:1 verbal report Share: No [...] of this note (via Provider Access services) GUEST SERVICES REPRESENTATIVE/PA on EP service (via Provider Access services) Attending on the EP service (via Provider Access services or PAGER #[phone]) After 16:00 energy analyst on EP service (via Provider Access services) Attending on the EP service (via Provider Access services or PAGER #[phone]) Other contact numbers: EP lab - [phone] - EP lab OR7 - [phone] EP (nurse of the day) NOD - [phone] or page [phone] label operator - [phone] Overhead Double page cardiology If the above [...] pacing in the future Will plan for CARBON GRINDER-d conduction system pacing lead, plus ICD Indication [...] Info) Description 03/08/2024 9:30 EDT Ancillary Procedure [facility] Cardiology - [facility] [address] [place] [address] 03/08/2024 10:15 EDT Ancillary Procedure [facility] - [place] [address] [place] [address] 04/05/2024 10:00 EDT Ancillary Procedure [facility] [address] [place] [phone] 04/05/2024 10:00 EDT Office Visit [facility] [address] [place] [phone] Carlos Ha NP [address] [place] [address] [address]OB[address] [place] [address] Pending Results Name Type Priority [...] EDT) 03/18/2023 11:3 2 EDT Scan 2 Pattern Gater PROCEDURE/MINOR CROW GICAL ORDERABLES * ECG REPORT - SCANNED (03/18/2023 8:34 EDT) 03/18/2023 8:34 EDT Scan 2 Pattern Gater PROCEDURE/MINOR CROW GICAL ORDERABLES * IMPLANT RECORD - SCANNED (03/17/2023 16:24 EDT) 03/17/2023 16:2 4 EDT Scan 2 Pattern Gater PROCEDURE/MINOR CROW GICAL ORDERABLES * ECG REPORT - SCANNED (03/17/2023 16:24 EDT) 03/17/2023 16:2 4 EDT Scan 2 Pattern Gater PROCEDURE/MINOR CROW GICAL ORDERABLES * (ABNORMAL) POCT GLUCOSE, INTERFACED (03/16/2023 11:36 EDT) Glucose, POC 212(H) 70 - 100 mg/dL 03/16/2023 11:[address] [facility] HN LAB POC COMMENT (GLUCOSE) Test Performed by Nursing Services 03/16/2023 11:[address] [facility] Blood CAPILLARY BLOOD / Unknown 03/16/2023 11:36 EDT 03/16/2023 11:44 EDT Kerline Ann PA-C POINT OF CARE TEST O RDERABLES [facility] [address] [place] [address] * XR CHEST 2 VIEWS (03/16/2023 10:27 EDT) Anatomical Region Laterality Modality Computed Radiogr aphy 03/16/2023 10:4 0 EDT Impressions 03/16/2023 10:40 EDT Satisfactory postprocedural chest radiograph. [id number] Narrative 03/16/2023 10:40 EDT XR CHEST 2 VIEWS ??03/16/2023 10:30 AM Clinical History/comments: s/p featheredger and reducer machine-d, heart block, cardiomyopathy; Comparison: 1 day prior. [...] VIEWS 03/16/2023 10:30 AM Clinical History/comments: s/p featheredger and reducer machine-d, heart block, cardiomyopathy; Comparison: 1 day prior. [...] Bones: Normal. IMPRESSION Satisfactory postprocedural chest radiograph. [id number] Lefty Moss MD IMG DIAGNOSTIC I MAGING [...] 70 - 100 mg/dL 03/16/2023 9:[address] [facility] HN LAB POC COMMENT (GLUCOSE) Test Performed by Nursing Services 03/16/2023 9:[address] [facility] Blood CAPILLARY BLOOD / Unknown 03/16/2023 8:59 EDT 03/16/2023 9:01 EDT Kerline SHAVERC POINT OF CARE TEST O RDERABLES [facility] [address] [place] [address] * (ABNORMAL) POCT GLUCOSE, INTERFACED (03/15/2023 23:57 EDT) Glucose, POC 314(H) 70 - 100 mg/dL 03/15/2023 23:[address] [facility] HN LAB POC COMMENT (GLUCOSE) Test Performed by Nursing Services 03/15/2023 23:[address] [facility] Blood CAPILLARY BLOOD / Unknown 03/15/2023 23:57 EDT 03/15/2023 23:58 EDT Lefty Moss MD POINT OF CARE TE ST ORDERABLES Performing Organization Address City/[facility]/ZIP Co de Phone Number [facility] [address] [place] [address] * (ABNORMAL) POCT GLUCOSE, INTERFACED (03/15/2023 20:19 EDT) Glucose, POC 467(H) 70 - 100 mg/dL 03/15/2023 20:[address] [facility] HN LAB POC COMMENT (GLUCOSE) Test Performed by Nursing Services 03/15/2023 20:[address] [facility] Blood CAPILLARY BLOOD / Unknown 03/15/2023 20:19 EDT 03/15/2023 20:21 EDT Kerline SHAVERC POINT OF CARE TEST O RDERABLES [facility] [address] [place] [address] * (ABNORMAL) POCT GLUCOSE, INTERFACED (03/15/2023 16:27 EDT) Glucose, POC 428(H) 70 - 100 mg/dL 03/15/2023 16:[address] [facility] HN LAB POC COMMENT (GLUCOSE) Test Performed by Nursing Services 03/15/2023 16:[address] [facility] Blood CAPILLARY BLOOD / Unknown 03/15/2023 16:27 EDT 03/15/2023 16:32 EDT Kerline Ann PA-C POINT OF CARE TEST O RDERABLES Performing Organization Address [facility] Co de Phone Number [facility] [address] [place] [address] * (ABNORMAL) POCT GLUCOSE, INTERFACED (03/15/2023 12:59 EDT) Glucose, POC 186(H) 70 - 100 mg/dL 03/15/2023 13:[address] [facility] HN LAB POC COMMENT (GLUCOSE) Test Performed by Nursing Services 03/15/2023 13:[address] [facility] Blood CAPILLARY BLOOD / Unknown 03/15/2023 12:59 EDT 03/15/2023 13:01 EDT Lefty Moss MD POINT OF CARE TE ST ORDERABLES Performing Organization Address [facility] Co de Phone Number [facility] [address] [place] [address] * EKG 12-LEAD (03/15/2023 12:28 EDT) 03/15/2023 12:2 8 EDT Narrative [facility] EKG - 03/18/2023 8:23 EDT ? [facility] ? Test Date: ?2023-03-15 Pat Name: ? JOANNA GAUTAM ?Department: ?? [place] [address] ? Room: ? EP Gender: ? Female ? Fibrous Plasterer: ?? [id number] : ?1950 ? Requested By: CHARITY ROMO Order Number: [id number] ? Oleksandr MD: ?? SNEHA LAWRENCE MD ? Measurements Intervals ?[place] ? Rate: ? 64 ? P: ?198 KS: ? 125 ?QRS: ?28 QRSD: ? 149 [...] Note Sneha Lawrence MD - 03/18/2023 [facility] Test Date: 2023-03-15 Pat Name: JOANNA HART Department: [place] [address] Room: Gender: Female Fibrous Plasterer: [id number] : 1950 Requested By: CHARITY TORRES Order Number: [id number] Reading MD: SNEHA LAWRENCE MD Measurements Intervals [place] Rate: 64 P: 198 KS: 125 QRS: 28 QRSD: 149 T: 182 QT: 463 QTc: 480 Interpretive Statements ELECTRONIC ATRIAL PACEMAKER ELECTRONIC VENTRICULAR PACEMAKER Compared to ECG 01/27/2023 10:07:02 Pacing is now present I reviewed the tracing and have either agreed or edited the findings inthis report. Electronically Signed On 03-18-2023 08:23:06 EDT by KATHY HAY. Lefty Moss MD CARDIAC ECG [facility] EKG * XR CHEST PORTABLE 1 VIEW (03/15/2023 12:05 EDT) Anatomical Region Laterality Modality Computed Radiogr aphy 03/15/2023 12:1 4 EDT Impressions 03/15/2023 12:14 EDT Left transvenous implantable cardioverter defibrillator with its leads projecting over the right atrium and right ventricle in this single AP view. [id number] Narrative 03/15/2023 12:14 EDT XR CHEST PORTABLE 1 VIEW ??03/15/2023 11:40 AM Clinical History/comments: s/p featheredger and reducer machine-d heart block cardiomyopathy; Comparison: Chest radiograph March [...] VIEW 03/15/2023 11:40 AM Clinical History/comments: s/p featheredger and reducer machine-d heart block cardiomyopathy; Comparison: Chest radiograph March [...] and right ventricle in this single APview. [id number] Lefty Moss MD IMG DIAGNOSTIC I MAGING ORDERABLES * ICD BI-V NEW (03/15/2023 10:47 EDT) Anatomical Region Laterality Modality Cardiac Electrop hysiology Narrative 03/16/2023 11:17 EDT Choose correct report for procedure performed: Attending: Lefty Moss MD Fellow: No Fellow Senior Art Director :Sabrina Bruno RN Attestation: Attending only- I,Lefty Moss MD, ??performed the entire procedure and was the initial and only author of the report. Procedure: ??CARBON GRINDER- D with conduction system pacing lead. Summary [...] with conduction system pacing lead lead via CARBON GRINDER-d device. On good med rx Indication History: Prior heart failure - yes NYHA class - II LVEF- Yes, 60% Date assessed : 10/2022 ? 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 NICM - yes GDMT max dose - Yes > 3 months Prior Cardiac arrest - no Prior [place] - yes- NSVT Prior [place] - ??no Prior PCI - Yes Prior [...] - Through a C315 His sheath a [employer] 3830 lead was advanced to the basal [...] can uptitrate beta marisa OP if needed eLfty Moss MD CARDIAC EP ORDER PAVEL * (ABNORMAL) POCT GLUCOSE, INTERFACED (03/15/2023 7:55 EDT) Glucose, POC 192(H) 70 - 100 mg/dL 03/15/2023 8:[address] [facility] HN LAB POC COMMENT (GLUCOSE) Test Performed by Nursing Services 03/15/2023 8:[address] [facility] Blood CAPILLARY BLOOD / Unknown 03/15/2023 7:55 EDT 03/15/2023 8:09 EDT Lefty oMss MD POINT OF CARE TE ST ORDERABLES [facility] [address] [place] [address] documented in this encounter Visit Diagnoses Diagnosis [...] 03/16/2023 documented in this encounter Care Teams Traffic Sergeant Relationship Specialty Start Date End Date Bryant Crain MD [address] [place] [address] PCP - General 05/04/15 05/17/23 Carlos Ha NP [address] [place] [phone] Consulting Clinician Cardiovascular Disease 09/14/21 documented as of this encounter
--- OUTSIDE RECORDS SUMMARY | 2024-01-12 11:19 | XMS_ITS | Encounter Summary ---
Author Organization [facility] Address [address] [place] [address] Care Team Providers Care Load Dispatcher Local Name Role Phone Carlos Ha NP Unavailable [phone] Elba Jett MD Primary Care Provider [phone] Reason for Referral * (Routine/Next Available) - Authorization Not Required Specialty Diagnoses / Procedures Referred By Contac t Referred To Contact Diagnoses Cardiomyopathy (HCC-CMS) Procedures CARDIAC IMPLANT CHECK - REMOTE MONITOR Carlos Ha NP [email or web address] [address] [place] [address] [facility] Referral ID Status Reason Start Date Expiration Date Visits Requested Visits Authorized [id number] Authorization Not Required 09/28/2023 36 36 * (Routine/Next Available) - Authorization Not Required Specialty Diagnoses / Procedures Referred By Contac t Referred To Contact Diagnoses Cardiomyopathy (HCC-CMS) Procedures CARDIAC IMPLANT CHECK - IN CLINIC Carlos Ha NP [address] [employer] [employer] [facility] [address] [place] [address] [facility] Referral ID Status Reason Start Date Expiration Date Visits Requested Visits Authorized [id number] Authorization Not Required 09/28/2023 36 36 Encounter Details Date Type Department Care Team (Late st Contact Info) Description 09/28/2023 Orders Only [facility] - [facility] Cardiology Clinic [address] [place], [place] [address] Carlos Ha NP [address] [facility] MOB-A [address] [place] [phone] Cardiomyopathy ([facility]) (Primary Dx) Social History Tobacco [...] Description 03/08/2024 9:30 EDT Ancillary Procedure [facility] Cardiology - [facility] [address] [place], [place] [phone] 03/08/2024 10:15 EDT Ancillary Procedure [facility] Cardiology - [facility] [address] [place], [place] [phone] 04/05/2024 10:00 EDT Ancillary Procedure [facility] Clinic [address] [place], [place] [address] 04/05/2024 10:00 EDT Office Visit [facility] Clinic [address] [place] [address] Carlos Ha NP [address] [facility] [address] [place] [address] Scheduled Orders Name Type Priority [...] cardiomyopathies documented in this encounter Care Teams Load Dispatcher Local Relationship Specialty Start Date End Date Elba Jett MD [address] [place] [phone] PCP - General Family Medicine - Primary Care 05/18/23 Carlos Ha NP [address] [place] [address] [address] [place] [phone] Consulting Clinician Cardiovascular Disease 09/14/21 documented as of this encounter
--- OUTSIDE RECORDS SUMMARY | 2024-01-12 11:19 | XMS_ITS | Encounter Summary ---
Author Organization [facility] Address [address] [place] [address] Care Team Providers Care Shotblast Operator Name Role Phone Bryant Crain MD Primary Care Provider [phone] Carlos Ha ASBESTOS COVERER Unavailable [phone] Elba Jett MD Primary Care Provider [phone] Reason for Visit * Reason Onset Date Comments Follow-up 04/15/2023 Encounter Details Date Type Department Care Team (Late st Contact Info) Description 04/15/2023 Telephone [facility] Cardiology Clinic [address] [place] [address] Carlos Ha, ASBESTOS COVERER [address] [facility]-A [address] [place] [address] Follow-up Social History Tobacco Use [...] Encounter - Fan Schaefer RN - 04/15/2023 1623 EDT Spoke with patient on the phone and relayed information from provider as requested. Patient verbalized understanding. documented in this encounter Plan of Treatment Upcoming Encounters Date Type Department Care Team (Late st Contact Info) Description 03/08/2024 9:30 EDT Ancillary Procedure [facility] Cardiology - [address] [place], [place] [phone] 03/08/2024 10:15 EDT Ancillary Procedure [facility] Cardiology - [address] [place] [address] 04/05/2024 10:00 EDT Ancillary Procedure [facility]iology Clinic [address] [place] [phone] 04/05/2024 10:00 EDT Office Visit [facility] Clinic [address] [place] [address] Carlos Ha NP [address] [place] [address]-[address] [place] [phone] documented as of this encounter Visit Diagnoses Not on filedocumented in this encounter Care Teams Shotblast Operator Relationship Specialty Start Date End Date Bryant Crain MD [address] [place] [address] PCP - General 05/04/15 05/17/23 Elba Jett MD [address] [facility] [place] [phone] PCP - General Family Medicine - Primary Care 05/18/23 Carlos Ha NP [address] [place] [phone] Consulting Clinician Cardiovascular Disease 09/14/21 documented as of this encounter
--- OUTSIDE RECORDS SUMMARY | 2024-01-12 11:19 | XMS_ITS | Encounter Summary ---
Author Organization [facility] Address [address] [place] [address] Care Team Providers Care Vp Director Of Creative Strategy Name Role Phone Carlos Ha BALLOON DESIGN PRINTER Unavailable [phone] Elba Jett MD Primary Care Provider [phone] Reason for Visit * Reason Onset Date Comments Appointment Related 06/15/2023 Encounter Details Date Type Department Care Team (Late st Contact Info) Description 06/15/[address] [address] Cardiology, Med [address] [place] [address] Appointment Related Social History Tobacco Use Types [...] Procedure [facility] Cardiology - [address] [place] [address] 03/08/2024 10:15 EDT Ancillary Procedure [facility] Cardiology [address] [place] [address] 04/05/2024 10:00 EDT Ancillary Procedure [facility] Cardiology Clinic [address] [place] [address] 04/05/2024 10:00 EDT Office Visit [facility] Cardiology Clinic [address] [place] [address] Carlos Ha NP [address] [place] [address] [address]OB[address] [place] [address] documented as of this encounter Visit Diagnoses Not on filedocumented in this encounter Care Teams Vp Director Of Creative Strategy Relationship Specialty Start Date End Date Elba Jett MD [address] [place] [phone] PCP - General Family Medicine - Primary Care 05/18/23 Carlos Ha NP [address] [place] [address] [address] Consulting Clinician Cardiovascular Disease 09/14/21 documented as of this encounter
--- OUTSIDE RECORDS SUMMARY | 2024-01-12 11:19 | XMS_ITS | Encounter Summary ---
Author Organization [facility] Address [address] [place] [address] Care Team Providers Care Wellness Ambassador Name Role Phone Bryant Crain MD Primary Care Provider [phone] Carlos Ha DIRECTOR OF SAFETY Unavailable [phone] Reason for Visit * Reason Onset Date Comments Appointment Related 04/19/2023 Encounter Details Date Type Department Care Team (Late st Contact Info) Description 04/19/2023 Telephone [facility] Cardiology Clinic [address] [place] [address] Carlos Ha, DIRECTOR OF SAFETY 130 [facility] [address] [place] [address] Appointment Related Social History Tobacco [...] 03/08/2024 9:30 EDT Ancillary Procedure [facility] Cardiology - [place] [address] [place] [address] 03/08/2024 10:15 EDT Ancillary Procedure [facility] Cardiology - [place] [address] [place] [address] 04/05/2024 10:00 EDT Ancillary Procedure [facility] Cardiology Clinic [address] [place] [phone] 04/05/2024 10:00 EDT Office Visit [facility] Cardiology Clinic [address] [place] [phone] Carlos Ha NP [address] [place] [address]-[address] [place] [phone] documented as of this encounter Visit Diagnoses Not on filedocumented in this encounter Care Teams Wellness Ambassador Relationship Specialty Start Date End Date Bryant Crain MD [address] [place], [place] [phone] PCP - General 05/04/15 05/17/23 Carlos Ha NP [address] [place] [address]- [address] [place] [address] Consulting Clinician Cardiovascular Disease 09/14/21 documented as of this encounter
--- OUTSIDE RECORDS SUMMARY | 2024-01-12 11:19 | XMS_ITS | Encounter Summary ---
Author Organization [facility] Address [address] [place] [address] Care Team Providers Care General Accounting Manager Name Role Phone Bryant Crain MD Primary Care Provider [phone] Carlos Ha SALES MANAGER [place] Unavailable [phone] Reason for Referral * Radiology Services (Routine/Next Available) - Specialty Report Received Specialty Diagnoses / Procedures Referred By [facility] Referred To Contact Diagnoses Chronic heart failure with preserved ejection fraction (HCC-CMS) Procedures XR CHEST 2 VIEWS Carlos Ha NP [address] [facility] [address] [address] Referral ID Status Reason Start Date Expiration Date V isits Requested Visits Authorized [id number] Specialty Report Received 03/02/2023 1 1 Reason for Visit * Reason Comments Cardiomyopathy Encounter Details Date Type Department Care Team (Late st Contact Info) Description 03/02/2023 16:15 EDT Office Visit [facility] Cardiology Clinic [address] [place] [address] Carlos Ha NP [address] [facility] [address] [address] Chronic heart failure with preserved [...] this encounter Progress Notes * Carlos Ha, SALES MANAGER [place] - 03/02/2023 1615 EDT Images from the [...] was cancelled as she presented to [facility] ED on the day it was scheduled. She presented to [facility] on with complaints of fatigue, [...] and octreotide. She was then transferred to [facility]. Repeat EDG showed esophagitis, scattered petechia in [...] in for NSTEMI. She was transferred to [facility] for [facility] 12/08/2022 with severe single vessel coronary artery [...] PMH Cryptogenic stroke (left MCA) 2017 with [employer] loop 2016. ASA recently started during admission at [facility] 08/2022 Paroxysmal atrial fibrillation (2 hr episode noted on monitor 2018.Started on Eliquis. No further episodes noted) NSVT (1 episode August 2019 with negative MPI) AVB type I and II - noted on quality assurance monitor during recent admission Hypertension, Hyperlipidemia (LDL 65 in 2021: She has been intolerant to multiple statins now on REPATHA) DM2 (A1C 7.1) CKD III Kidney stone 11/02 passed Duodenal ulcer and esophagitis with acute GIB admit to [facility] 11/11-11/14. D/C on Protonix. ?Parkinson's Disease HCM -septal thickness 17 mm with very high burden LGE on MRI, epsides of NSVT. SH Lives in [place] with spouse Has three grown children She [...] 1/4 needle ??? [facility] [...] glucose scanning reader (FREESTYLE VICKY 2 READER) [facility] 1 Device by [facility] (non-drug; comboroute) route daily. Dispense one reader [...] ??? lancets/blood glucose strips (ONE TOUCH COMBO [facility]) -to test blood sugar - twice daily [...] ??? Propoxyphene N-Acetaminophen Other reaction(s): Hallucinations ??? Qznxlyh-Jzt-Frz Reductase Inhibitors ??? Trulicity [Dulaglutide] Gi Side [...] dilation (TID) with a value of 1.4 [facility] 12/08/2022 CORONARY ARTERIES: The coronary circulation [...] from base to apex. The distal apex ([id number]) is concentrically involved by delayed enhancement. Left [...] 90% stenosis of RCA found on angiography. [facility] completed 12/08/22 with successful RCA stenting. [...] NSVT. -Dual chamber pacer/icd implant scheduled at [facility] 03/15/2023 4. PAF. -Eliquis resumed -No episodes [...] eliquis but she has been on this residential 13. SOB -labs and cxr I spent [...] EDT Ancillary Procedure [facility] [address] [place], [place] [phone] 03/08/2024 10:15 EDT Ancillary Procedure [facility] [address] [place], [place] [phone] 04/05/2024 10:00 EDT Ancillary Procedure [facility] Cardiology Clinic [address] [facility] [place] [address] 04/05/2024 10:00 EDT Office Visit [facility] Cardiology Clinic [address] [place] [address] Carlos Ha NP 130 [facility] [address] [place] [address] Scheduled Orders Name Type Priority Associated Diagnoses Orde r Schedule XR CHEST 2 VIEWS Imaging Routine Chronic heart failure with preserved ejection fraction (HCC-CMS) Expected: 03/02/2023 (Approximate), Expires: 03/02/2024 documented as of this encounter Results * (ABNORMAL) COMPREHENSIVE METABOLIC PANEL (CMP) (06/03/2023 12:20 EST) Sodium 138 136 - 145 mmol/L 06/03/2023 13:01 [facility] Potassium 4.8 3.5 - 5.0 mmol/L 06/03/2023 13:01 [facility] Chloride 104 96 - 110 mmol/L 06/03/2023 13:01 [facility] CO2 Total 26 22 - 32 mmol/L 06/03/2023 13:01 [facility] Glucose 314(H) 70 - 99 mg/dl 06/03/2023 13:01 [facility] BUN 18 10 - 26 mg/dL 06/03/2023 13:01 [facility] Creatinine 0.86 0.52 - 1.04 mg/dL 06/03/2023 13:01 [facility] eGFR 72 >60 mL/min/1.7 3m2 06/03/2023 13:01 [facility] Total Protein 6.7 6.3 - 8.2 g/dL 06/03/2023 13:01 [facility] Albumin 3.9 3.4 - 4.9 g/dL 06/03/2023 13:01 [facility] Alkaline Phosphatase 67 38 - 126 U/L 06/03/2023 13:01 [facility] AST 24 15 - 46 U/L 06/03/2023 13:01 [facility] ALT 17 <35 U/L 06/03/2023 13:01 [facility] Bilirubin, Total 0.7 <1.4 mg/dL 06/03/20 13:01 [facility] Calcium 10.6(H) 8.5 - 10.5 mg/dL 06/03/2023 13:01 [facility] Albumin/Globulin Ratio 1.4 1.0 - 2.5 g/dL 06/03/2023 13:01 [facility] Anion Gap 8 5 - 14 mmol/L 06/03/2023 13:01 [facility] Blood VENOUS BLOOD / Unknown Venipuncture / Unknown 06/03/2023 12:20 EST 06/03/2023 12:36 EST Carlos Ha NP CHEMISTRY & BLOOD GA S ORDERABLES Performing Organization Address City/State/[facility] Co de Phone Number [facility] [address] [place] [address] * (ABNORMAL) NT PRO BNP (06/03/2023 12:20 EST) NT-pro BNP 1,740(H) <221 pg/mL 06/03/2023 13:11 [facility] Comment: In the acute setting NT-proBNP values <300 pg/mL have a 98% NPV for excluding acute heart failure. In outpatient populations, NT-proBNP values <125 have a 99% NPV for excluding heart failure. Blood VENOUS BLOOD / Unknown Venipuncture / Unknown 06/03/2023 12:20 EST 06/03/2023 12:36 EST Carlos Ha NP CHEMISTRY & BLOOD GA S ORDERABLES [facility] [address] [place] [address] documented in this encounter Visit Diagnoses Diagnosis Chronic heart failure with preserved ejection fraction (HCC-CMS)- Primary documented in this encounter Care Teams General Accounting Manager Relationship Specialty Start Date End Date Bryant Crain MD [address] [place], [place] [phone] PCP - General 05/04/15 05/17/23 Carlos Ha NP 130 [facility] [address]OB[address]A [address] [place] [phone] Consulting Clinician Cardiovascular Disease 09/14/21 documented as of this encounter
--- OUTSIDE RECORDS SUMMARY | 2024-01-12 11:19 | XMS_ITS | Encounter Summary ---
Author Organization [facility] Address [address] [place] [address] Care Team Providers Care Monitoring And Evaluation Advisor Name Role Phone Carlos Ha AMMONIUM HYDROXIDE OPERATOR Unavailable [phone] Elba Jett MD Primary Care Provider [phone] Reason for Referral * Cardiology (Routine/Next Available) - New Request Specialty Diagnoses / Procedures Referred By Contac t Referred To Contact Diagnoses Hypertrophic cardiomyopathy ([facility]) Procedures TRANSTHORACIC ECHO (TTE) COMPLETE MI ECHO HEART XTHORACIC,COMPLETE W DOPPLER Randy Sebastian MD [address] [place] [phone] [facility] Referral ID Status Reason Start Date Expiration Date V isits Requested Visits Authorized [id number] New Request 05/18/2023 1 1 * Consult (Routine/Next Available) - Authorization Not Required Specialty Diagnoses / Procedures Referred By Contac t Referred To Contact Diagnoses Hypertrophic cardiomyopathy ([facility]) Randy Sebastian MD [address] [place] [phone] Referral ID Status Reason Start Date Expiration Date Visits Requested Visits Authorized [id number] Authorization Not Required Specialty Services Required 05/18/20 23 1 1 Question Answer Reason for Request: post DE PCI Reason for Visit * Reason Comments Congestive Heart Failure HfPEF (heart fa ilure with preserved ejection fraction) Encounter Details Date Type Department Care Team (Latest Contact Info) Description 05/18/2023 14:00 EST Office Visit [facility] Cardiology - [address] [place] [address] Randy Sebastian MD [address] [place] [phone] Hypertrophic cardiomyopathy (HCC-CMS) (Primary Dx) Social [...] Randy Sebastian MD - 05/18/2023 1400 EST [facility] Division of Cardiology- Advanced Heart Failure and Transplant Cardiology Dear Elba Jett We had the pleasure of seeing Joanna Hart at the [facility] Advanced Heart Failure Office today for follow-up evaluation for HFpEF the setting of hypertrophic cardiomyopathy, type 2 diabetes, NSVT and A-fib, AMI status post PCI mid 2022. As you know, Joanna Hart is a 72 y.o. female who I have been following with my colleague, Ms. Carlos Ha at [facility], for the above-mentioned conditions. Most recent follow-up [...] Randy Sebastian MD Advanced HF and Transplant Caustic Pump Operator [facility] 05/18/2023 14:03 Medications Prior to Today's Visit [...] on 03/31/2023) ??? flash glucose scanning reader (FREESquirroYLE VICKY 2 READER) misc 1 Device by [...] lancets/blood glucose strips (ONE TOUCH COMBO [facility]) -to test blood sugar - [...] Take 0.5 Tablets by mouth daily. ??? [facility] No facility-administered medications prior to visit. BP [...] Procedure [facility] Cardiology - [place] [address] [place] [address] 03/08/2024 10:15 EDT Ancillary Procedure [facility] Cardiology - [facility] [place] [address] 04/05/2024 10:00 EDT Ancillary Procedure [facility] Cardiology Clinic [address] [place] [id number] 04/05/2024 10:00 EDT Office Visit [facility] Cardiology Clinic [address] [place] [phone] Carlos Ha NP [address] [place] [address]- [address] [place] [address] Scheduled Orders Name Type Priority [...] EST) 05/20/2023 14:5 4 EST Scan 2 [employer] PROCEDURE/MINOR CROW GICAL ORDERABLES * EKG 12-LEAD (05/18/2023 14:16 EST) 05/18/2023 14:1 6 EST Narrative [facility] EKG - 05/20/2023 14:47 EST ? [facility] ? Test Date: ?2023-05-18 Pat Name: ? JOANNA GAUTAM ?Department: ?? [place] Card ? Room: ? Gender: ? Female ? Tissue Packer: ?? [id number] : ?1950 ? Requested By: ASIA Ovalles Order Number: [id number] ? Reading : ?? REILLY GOMES SA, MD ? Measurements Intervals ?[place] ? Rate: ? 81 ? P: ?53 MI: ? 164 ?QRS: ?41 QRSD: ? 130 [...] Reilly Silverio Sa, MD - 05/20/2023 [facility] Test Date: 2023-05-18 Pat Name: JOANNA HART Department: [place] Card Room: Gender: Female Tissue Packer: [id number] : 1950 Requested By: ASIA Ovalles Order Number: [id number] Reading MD: REILLY CALDWELL Measurements Intervals [place] Rate: 81 P: 53 MI: 164 QRS: 41 QRSD: 130 T: 208 [...] Randy Sebastian MD CARDIAC ECG ORDERABL ES [facility] EKG documented in this encounter Visit Diagnoses Diagnosis Hypertrophic cardiomyopathy (HCC-CMS)- Primary Other hypertrophic cardiomyopathy documented in this encounter Discontinued Medications Medication Sig Discontinue Reason Start Date End Da te metoprolol TARtrate (LOPRESSOR) 25 mg tablet Take 0.5 Tablets by mouth daily. Therapy completed 12/09/2022 05/18/2023 documented as of this encounter Care Teams Monitoring And Evaluation Advisor Relationship Specialty Start Date End Date Elba Jett MD [address] [place] [phone] PCP - General Family Medicine - Primary Care 05/18/23 Carlos Ha NP [address] [place] [address]-A [address] [place] [phone] Consulting Clinician Cardiovascular Disease 09/14/21 documented as of this encounter
--- OUTSIDE RECORDS SUMMARY | 2024-01-12 11:19 | XMS_ITS | Encounter Summary ---
Author Organization [facility] Address [address] [place] [address] Care Team Providers Care Site Physician Name Role Phone Bryant Crain MD Primary Care Provider [phone] Carlos Ha HEEL EDGE INKER MACHINE Unavailable [phone] Elba Jett MD Primary Care Provider [phone] Reason for Visit * Reason Onset Date Comments Appointment Related 05/05/2023 Encounter Details Date Type Department Care Team (Late st Contact Info) Description 05/05/2023 Telephone [facility] Cardiology Clinic [address] [place] [address] Carlos Ha, HEEL EDGE INKER MACHINE 130 [facility] [address] [place] [address] Appointment Related Social History Tobacco [...] 03/08/2024 9:30 EDT Ancillary Procedure [facility] Cardiology - [place] [address] [place] [address] 03/08/2024 10:15 EDT Ancillary Procedure [facility] Cardiology [facility] [place] [address] 04/05/2024 10:00 EDT Ancillary Procedure [facility] Cardiology Clinic [address] [place] [address] 04/05/2024 10:00 EDT Office Visit [facility] Cardiology Clinic [address] [place] [address] Carlos Ha, HEEL EDGE INKER MACHINE [address] [place] [address] [address] [place] [address] documented as of this encounter Visit Diagnoses Not on filedocumented in this encounter Care Teams Site Physician Relationship Specialty Start Date End Date Bryant Crain MD [address] [place], [place] [phone] PCP - General 05/04/15 05/17/23 Elba Jett MD [address] [place] [address] [place] [phone] PCP - General Family Medicine - Primary Care 05/18/23 Carlos Ha NP [address] [place] [address] [address] [place] [address] Consulting Clinician Cardiovascular Disease 09/14/21 documented as of this encounter
--- OUTSIDE RECORDS SUMMARY | 2024-01-12 11:19 | XMS_ITS | Encounter Summary ---
Author Organization [facility] Address [address] [place] [address] Care Team Providers Care Vending Attendant Name Role Phone Bryant Crain MD Primary Care Provider [phone] Carlos Ha PATTERN DATA OPERATOR Unavailable [phone] Reason for Visit * Reason Onset Date Comments Follow-up 03/04/2023 Encounter Details Date Type Department Care Team (Late st Contact Info) Description 03/04/2023 Telephone [facility] [address] [place] [address] Carlos Ha, PATTERN DATA OPERATOR 130 [facility]-A [address] [place] [address] Follow-up Social History Tobacco Use [...] in agreement to reporting to ED at [facility]. * Telephone Encounter - Deepali Ovalles RN [...] 03/08/2024 9:30 EDT Ancillary Procedure [facility] Cardiology - [facility] [address] [place] [address] 03/08/2024 10:15 EDT Ancillary Procedure [facility] Cardiology [address] [place] [address] 04/05/2024 10:00 EDT Ancillary Procedure [facility] Cardiology Clinic [address] [place] [address] 04/05/2024 10:00 EDT Office Visit [facility] Cardiology Clinic [address] [place] [address] Carlos Ha PATTERN DATA OPERATOR [address] [place] [phone] documented as of this encounter Visit Diagnoses Not on filedocumented in this encounter Care Teams Vending Attendant Relationship Specialty Start Date End Date Bryant Crain MD [address] [place], [place] [phone] PCP - General 05/04/15 05/17/23 Carlos Ha NP [address] [place] [phone] Consulting Clinician Cardiovascular Disease 09/14/21 documented as of this encounter
--- OUTSIDE RECORDS SUMMARY | 2024-01-12 11:19 | XMS_ITS | Encounter Summary ---
Author Organization [facility] Address [address] [place] [address] Care Team Providers Care Disc Jockey Name Role Phone Bryant Crain MD Primary Care Provider [phone] Carlos Ha INSTRUMENTATION ENGINEERING TECHNICIAN Unavailable [phone] Reason for Visit * Reason Comments Follow-up Encounter Details Date Type Department Care Team (Late st Contact Info) Description 04/15/2023 10:00 EDT Telemedicine [facility] Cardiology Clinic [address] [place] [address] Carlos Ha, INSTRUMENTATION ENGINEERING TECHNICIAN 130 [facility]-A [address] [place] [address] Drug rash (Primary Dx) Social [...] this encounter Progress Notes * Carlos Ha, INSTRUMENTATION ENGINEERING TECHNICIAN - 04/15/2023 1000 EDT [facility] Telephone Visit The concept of ???Telemedicine?? has [...] History: Diagnosis Date ??? Cerebrovascular accident (CVA) ([facility]) 06/01/2019 ??? Diabetes mellitus, type 2 ([facility]) 01/26/2011 On metformin On metformin ??? Essential hypertension 06/01/2019 ??? Mixed hyperlipidemia 06/05/2019 ??? Nonrheumatic aortic valve stenosis 06/01/2019 ??? Paroxysmal atrial fibrillation ([facility]) 06/01/2019 SH/FH: reviewed and updated MEDICATIONS: Medications Prior to Today's Visit Medication Sig ??? acetaminophen (TYLENOL) 650 mg CR tablet 2 tab(s) orally twice a day, only as needed ??? apixaban (ELIQUIS) 5 mg tablet Take 1 Tablet by mouth 2 times daily. ??? BD ULTRA-FINE MICRO PEN NEEDLE 32 gauge x 1/4 needle ??? blood glucose meter by [facility] (non-drug; combo route) route daily. One touch [...] glucose scanning reader (FREESTYLE VICKY 2 READER) [facility] 1 Device by [facility] (non-drug; comboroute) route daily. Dispense one reader [...] ??? lancets/blood glucose strips (ONE TOUCH COMBO [facility]) -to test blood sugar - twice daily [...] ??? Propoxyphene N-Acetaminophen Other reaction(s): Hallucinations ??? Cgmixng-Qov-Uno Reductase Inhibitors ??? Trulicity [Dulaglutide] Gi Side [...] tolerated. Will follow up withCardiology team at [facility] as she is only 4 mos [...] tolerated. Will follow up withCardiology team at [facility] as she is only 4 mos [...] Ancillary Procedure [facility] Cardiology - [facility] [address] [place] [address] 03/08/2024 10:15 EDT Ancillary Procedure [facility] Cardiology [address] [place] [address] 04/05/2024 10:00 EDT Ancillary Procedure [facility] Cardiology Clinic [address] [place] [phone] 04/05/2024 10:00 EDT Office Visit [facility] Cardiology Clinic [address] [place] [address] Carlos Ha NP [address] [place] [phone] documented as of this encounter Visit Diagnoses Diagnosis Drug rash- Primary Dermatitis due to drugs and medicines taken internally documented in this encounter Care Teams Disc Jockey Relationship Specialty Start Date End Date Bryant Crain MD [address] [place], [place] [phone] PCP - General 05/04/15 05/17/23 Carlos Ha NP [address] [place] [phone] Consulting Clinician Cardiovascular Disease 09/14/21 documented as of this encounter
--- OUTSIDE RECORDS SUMMARY | 2024-01-12 11:19 | XMS_ITS | Encounter Summary ---
Author Organization [facility] Address [address] [place] [address] Care Team Providers Care Nuclear Fuel Processing Technician Name Role Phone Carlos Ha OPERATING SYSTEMS PROGRAMMER Unavailable [phone] Elba Jett MD Primary Care Provider [phone] Reason for Visit * (Routine/Next Available) - Authorization Not Required Specialty Diagnoses / Procedures [facility] Referred To Contact Diagnoses Cardiomyopathy ([facility]) Procedures CARDIAC IMPLANT CHECK - IN CLINIC Carlos Ha NP [address] [facility] [address] [address] [facility] Referral ID Status Reason Start Date Expiration Date Visits Requested Visits Authorized [id number] Authorization Not Required 09/28/2023 36 36 Encounter Details Date Type Department Care Team (Late st Contact Info) Description 10/05/2023 15:00 EDT Ancillary Procedure [facility] Cardiology Clinic [address] [place] [address] Social History Tobacco Use Types [...] Procedure [facility] Cardiology - [place] [address] [place], [place] [phone] 03/08/2024 10:15 EDT Ancillary Procedure [facility] Cardiology [place] [address] [place] [address] 04/05/2024 10:00 EDT Ancillary Procedure [facility] Cardiology Clinic [address] [place] [phone] 04/05/2024 10:00 EDT Office Visit [facility] Cardiology Clinic [address] [place] [address] Carlos Ha NP [address] [place] [address] [address] [place] [address] documented as of this encounter [...] filedocumented in this encounter Care Teams Nuclear Fuel Processing Technician Relationship Specialty Start Date End Date Elba Jett MD [address] [place] [phone] PCP - General Family Medicine - Primary Care 05/18/23 Carlos Ha NP [address] [place] [address] [address] [place] [phone] Consulting Clinician Cardiovascular Disease 09/14/21 documented as of this encounter
--- OUTSIDE RECORDS SUMMARY | 2024-01-12 11:19 | XMS_ITS | Encounter Summary ---
Author Organization [facility] Address [address] [place] [address] Care Team Providers Care Outreach Team Member Name Role Phone Carlos Ha TECHNICAL LABORATORY ASST Unavailable [phone] Elba Jett MD Primary Care Provider [phone] Reason for Visit * Reason Comments Pacemaker/Device Check Medtronic Encounter Details Date Type Department Care Team (Latest Contact Info) Description 06/03/2023 11:30 EST Office Visit [facility] [address] [place] [address] Carlos Ha, TECHNICAL LABORATORY ASST [address] [facility] [place] [address] Chronic heart failure with preserved [...] this encounter Progress Notes * Carlos Ha, TECHNICAL LABORATORY ASST - 06/03/2023 1130 EST CC: Pacemaker/Device Check [...] but was cancelled as she presented to [facility] ED on the day it was scheduled. She presented to [facility] on with complaints of fatigue, chest [...] in for NSTEMI. She was transferred to [facility] for LHC 12/08/2022 with severe single vessel [...] She is off Plavix and tolerating losartan [facility] Cryptogenic stroke (left MCA) 2016 with Medtronic loop 2016. ASA recently started during admission at [facility] 08/2022 Paroxysmal atrial fibrillation (2 hr episode noted on monitor 2018.Started on Eliquis. No further episodes noted) NSVT (1 episode August 2019 with negative MPI) AVB type I and II - noted on monitoring engineer during recent admission Hypertension, Hyperlipidemia (LDL 65 in 2021: She has been intolerant to multiple statins now on REPATHA) DM2 (A1C 7.1) CKD III Kidney stone 11/02 passed Duodenal ulcer and esophagitis with acute GIB admit to [facility] 11/11-11/14. D/C on Protonix. ?Parkinson's Disease HCM -septal thickness 17 mm with very high burden LGE on MRI, epsides of NSVT. SH Lives in [place] with spouse Has three grown children She [...] x 1/4 needle blood glucose meter by [facility] (non-drug; combo route) route daily. One touch [...] VICKY 2 READER) mis 1 Device by [facility] (non-drug; combo route) route daily. Dispense one [...] tablet Take 0.5 Tablets by mouth daily. [employer] No facility-administered medications prior to visit. ALLERGIES: [...] Plavix [Clopidogrel] Propoxyphene N-Acetaminophen Other reaction(s): Hallucinations Gzcvqte-Jhr-Fui Reductase Inhibitors Trulicity [Dulaglutide] Gi Side effect [...] EXAM: Alert and oriented x3. Gait normal [facility] Cardiology Device Visit Co Founder & Ceo: [employer] Device Type: Multiple FERN PICKER-D Service: Office Visit Implant Date: 03/15/2023 Indication: [...] CDI, well approximated and without erythema/tenderness/drainage DATA: [place] PET 12/07/2022 Perfusion: There was a moderate [...] dilation (TID) with a value of 1.4 [facility] 12/08/2022 CORONARY ARTERIES: The coronary circulation is [...] from base to apex. The distal apex ([id number]) is concentrically involved by delayed enhancement. Left [...] 90% stenosis of RCA found on angiography. [facility] completed 12/08/22 with successful RCA stenting. -Off Plavix. Rash improved. -Continue BB and Repatha -Reports feeling clinically improved. Will plan to refer back to Cardiac Rehab 2. HCM severe asymmetric hypertrophy of LV with septal thickness 1.7 cm. ACC Stage C, NYHA III HFpEF -Genetic testing pending -Low dose BB. Spironolactone up titrated to 25 mg daily -Improved symptoms with Bi-V ICD FERN PICKER 3. NSVT. -Medtronic Bi-V ICD implant. No [...] Procedure [facility] Cardiology [place] [address] [address] [place], [place] [phone] 03/08/2024 10:15 EDT Ancillary Procedure [facility] Cardiology [place] [address] [place] [address] 04/05/2024 10:00 EDT Ancillary Procedure [facility] Cardiology Clinic [address] [place] [address] 04/05/2024 10:00 EDT Office Visit [facility] Cardiology Clinic [address] [place] [phone] Carlos Ha NP [address] [place] [address] [address] [place] [phone] documented as of this encounter Visit Diagnoses [...] 06/03/2023 documented in this encounter Care Teams Outreach Team Member Relationship Specialty Start Date End Date Elba Jett MD [address] [place] [phone] PCP - General Family Medicine - Primary Care 05/18/23 Carlos Ha NP [address] [place] [address] [address] [place] [address] Consulting Clinician Cardiovascular Disease 09/14/21 documented as of this encounter
--- OUTSIDE RECORDS SUMMARY | 2024-01-12 11:19 | XMS_ITS | Encounter Summary ---
Author Organization [facility] Address [address] [place] [address] Care Team Providers Care Food Trades Assistants Name Role Phone Bryant Crain MD Primary Care Provider [phone] Carlos Ha NUTS AND BOLTS ASSEMBLER Unavailable [phone] Reason for Visit * Reason Onset Date Comments Coordination Of Care 03/25/2023 Follow-up 03/25/2023 Encounter Details Date Type Department Care Team (Late st Contact Info) Description 03/25/2023 Telephone [facility] Cardiology - [address] [place] [address] Randy Sebastian MD [address] [place] [phone] Coordination Of Care; Follow-up Social History [...] from the original note were not included. Lab Tester reaching out to Justin at [facility] regarding whether patient requires prophylactic antibiotics. Lab Tester relayed that patient does not require this. They are pleased with this and state not having further questions. No barriers to learning were identified. Randy Sebastian MD You 10 minutes ago (11:56) No antibiotic indication Thanks Donell * Telephone Encounter - Randy Sebastian MD - 03/25/2023 1156 EDT No antibiotic indication Thanks Donell * Telephone Encounter - Niharika Boyle - 03/25/2023 0832 EDT [facility] Calling because patient needs to have dental procedure completed but dentist would like to know if patient should/can be provided antiobiotics before dental visit/procedure? Please contact and advise documented in this encounter Plan of Treatment Upcoming Encounters Date Type Department Care Team (Late st Contact Info) Description 03/08/2024 9:30 EDT Ancillary Procedure [facility] Cardiology - [address] [place] [address] 03/08/2024 10:15 EDT Ancillary Procedure [facility] Cardiology - [address] [place] [address] 04/05/2024 10:00 EDT Ancillary Procedure [facility] Cardiology Clinic [address] [place] [phone] 04/05/2024 10:00 EDT Office Visit [facility] Cardiology Clinic [address] [place] [phone] Carlos Ha, RAHEEM [address] [place] [phone] documented as of this encounter Visit Diagnoses Not on filedocumented in this encounter Care Teams Food Trades Assistants Relationship Specialty Start Date End Date Bryant Crain MD [address] [place], [place] [phone] PCP - General 05/04/15 05/17/23 Carlos Ha NP [address] [place] [phone] Consulting Clinician Cardiovascular Disease 09/14/21 documented as of this encounter
--- OUTSIDE RECORDS SUMMARY | 2024-01-12 11:19 | XMS_ITS | Encounter Summary ---
Author Organization [facility] Address [address] [place] [address] Care Team Providers Care Seed Cleaner Operator Name Role Phone Bryant Crain MD Primary Care Provider [phone] Carlos Ha HOTEL OPERATIONS MANAGER Unavailable [phone] Reason for Visit * (Routine) - Order Cancelled Specialty Diagnoses / Procedures Referred By Charo daniel Referred To Contact Diagnoses Cryptogenic stroke ([facility]) Procedures CARDIAC IMPLANT CHECK - IN CLINIC Carlos Ha, HOTEL OPERATIONS MANAGER [address] [facility] [address] [place] [address] Referral ID Status Reason Start Date Expiration Date V isits Requested Visits Authorized [id number] Order Cancelled 06/11/2020 18 18 Encounter Details Date Type Department Care Team (Late st Contact Info) Description 03/31/2023 14:30 EDT Ancillary Procedure [facility] Cardiology Clinic [address] [place] [address] Social History Tobacco Use Types [...] Info) Description 03/08/2024 9:30 EDT Ancillary Procedure [facility] Cardiology - [address] [place], [place] [phone] 03/08/2024 10:15 EDT Ancillary Procedure [facility] Cardiology [address] [place] [address] 04/05/2024 10:00 EDT Ancillary Procedure [facility] Cardiology Clinic [address] [place] [phone] 04/05/2024 10:00 EDT Office Visit [facility] Cardiology Clinic [address] [place] [phone] Carlos Ha NP [address] [place] [address] [place] [phone] documented as of this encounter Visit Diagnoses Not on filedocumented in this encounter Orders Imaging Orders Without Results Count Last Order ed Date First Ordered Date CARDIAC IMPLANT CHECK - IN CLINIC 1 020 documented in this encounter Care Teams Seed Cleaner Operator Relationship Specialty Start Date End Date Bryant Crain MD [address] [place], [place] [phone] PCP - General 05/04/15 05/17/23 Carlos Ha NP [address] [place] [phone] Consulting Clinician Cardiovascular Disease 09/14/21 documented as of this encounter
--- OUTSIDE RECORDS SUMMARY | 2024-01-12 11:19 | XMS_ITS | Encounter Summary ---
Author Organization [facility] Address [address] [place] [address] Care Team Providers Care Inventory Worker Name Role Phone Bryant Crain MD Primary Care Provider [phone] Carlos Ha ARTS ADMINISTRATOR Unavailable Reason for Visit * Reason Onset Date Comments Medication Management 04/19/2023 Encounter Details Date Type Department Care Team (Late st Contact Info) Description 04/19/2023 Telephone [facility] Cardiology Clinic [address] [place] [address] Carlos Ha, ARTS ADMINISTRATOR [address] [facility] [address] [place] [address] Medication Management Social History Tobacco [...] Info) Description 03/08/2024 9:30 EDT Ancillary Procedure [facility] Cardiology - [address] [place], [place] [phone] 03/08/2024 10:15 EDT Ancillary Procedure [facility] Cardiology - [facility] [address] [place] [address] 04/05/2024 10:00 EDT Ancillary Procedure [facility] Cardiology Clinic [address] [place] [phone] 04/05/2024 10:00 EDT Office Visit [facility] Cardiology [address] [address] Carlos Ha NP [address] [place] [phone] documented as of this encounter Visit Diagnoses Not on filedocumented in this encounter Care Teams Inventory Worker Relationship Specialty Start Date End Date Bryant Crain MD [address] [place], [place] [phone] PCP - General 05/04/15 05/17/23 Carlos Ha NP [address] [place] [phone] Consulting Clinician Cardiovascular Disease 09/14/21 documented as of this encounter
--- OUTSIDE RECORDS SUMMARY | 2024-01-12 11:19 | XMS_ITS | Encounter Summary ---
Author Organization [facility] Address [address] [place] [address] Care Team Providers Care Human Resources Benefits Specialist Name Role Phone Bryant Crain MD Primary Care Provider [phone] Carlos Ha HOSPICE SOCIAL WORKER Unavailable [phone] Reason for Visit * Reason Comments Pacemaker/Device Check medtronic Encounter Details Date Type Department Care Team (Late st Contact Info) Description 03/31/2023 14:[address] [facility] Cardiology Clinic [address] [place] [address] Carlos Ha, HOSPICE SOCIAL WORKER [address] [facility] [address] [place] [address] Cryptogenic stroke (HCC-CMS) (Primary Dx) [...] encounter Patient Instructions * Patient Instructions* Carlos Ha NP - 03/31/2023 14:30 EDT HOLD LOSARTAN [...] was cancelled as she presented to [facility] ED on the day it was scheduled. She presented to [facility] on with complaints of fatigue, chest tightness, [...] and octreotide. She was then transferred to [facility]. Repeat EDG showed esophagitis, scattered [...] in for NSTEMI. She was transferred to [facility] for LHC 12/08/2022 with severe single [...] ASA recently started during admission at [facility] 08/2022 Paroxysmal atrial fibrillation (2 hr episode noted on monitor 2018.Started on Eliquis. No further episodes noted) NSVT (1 episode August 2019 with negative MPI) AVB type I and II - noted on irrigator during recent admission Hypertension, Hyperlipidemia (LDL 65 in 2021: She has been intolerant to multiple statins now on REPATHA) DM2 (A1C 7.1) CKD III Kidney stone 11/02 passed Duodenal ulcer and esophagitis with acute GIB admit to [facility] 11/11-11/14. D/C on Protonix. ?Parkinson's Disease HCM -septal thickness 17 mm with very high burden LGE on MRI, epsides of NSVT. SH Lives in [place] with spouse Has three grown children She [...] 1/4 needle ??? blood glucose meter by [facility] (non-drug; combo route) route [...] VICKY 2 READER) misc 1 Device by [facility] (non-drug; comboroute) route daily. [...] ??? lancets/blood glucose strips (ONE TOUCH COMBO [facility]) -to test blood sugar [...] ??? Propoxyphene N-Acetaminophen Other reaction(s): Hallucinations ??? Yegpugs-Xkp-Ors Reductase Inhibitors ??? Trulicity [Dulaglutide] Gi Side [...] Alert and oriented x3. Gait normal [facility] Cardiology Device Visit General Distillery Worker: Medtronic Device Type: Multiple RECONDITIONER-D Service: Office Visit Implant Date: 03/15/2023 Indication: [...] dilation (TID) with a value of 1.4 [facility] 12/08/2022 CORONARY ARTERIES: The coronary circulation is [...] from base to apex. The distal apex ([id number]) is concentrically involved by delayed enhancement. Left [...] 90% stenosis of RCA found on angiography. [facility] completed 12/08/22 with successful RCA stenting. -Tolerating [...] akira but she has been on this predatory animal exterminator I spent a total of 40 minutes [...] Procedure [facility] Cardiology - [address] [place], [place] [phone] 03/08/2024 10:15 EDT Ancillary Procedure [facility] Cardiology [address] [place], [place] [phone] 04/05/2024 10:00 EDT Ancillary Procedure [facility] Cardiology Clinic [address] [place] [address] 04/05/2024 10:00 EDT Office Visit [facility] Cardiology Clinic [address] [place] [address] Carlos Ha NP [address] [place] [phone] documented as of this encounter Visit Diagnoses Diagnosis Cryptogenic stroke ([facility] Primary Unspecified cerebral artery occlusion with cerebral infarction documented in this encounter Care Teams Human Resources Benefits Specialist Relationship Specialty Start Date End Date Bryant Crain MD [address] [place], [place] [phone] PCP - General 05/04/15 05/17/23 Carlos Ha NP [address] [place] [phone] Consulting Clinician Cardiovascular Disease 09/14/21 documented as of this encounter
--- OUTSIDE RECORDS SUMMARY | 2024-01-12 11:19 | XMS_ITS | Encounter Summary ---
Author Organization [facility] Address [address] [place] [address] Care Team Providers Care Money Room Supervisor Name Role Phone Carlos Ha HEEL TOP LIFT SPLITTER Unavailable [phone] Elba Jett MD Primary Care Provider [phone] Encounter Details Date Type Department Care Team (Late st Contact Info) Description 06/03/2023 12:15 EST Phlebotomy Only [facility] - Outpatient Phlebotomy Drawing [address] [place] [address] Lab, [facility] Phlebotomy Chronic heart failure with preserved [...] Info) Description 03/08/2024 9:30 EDT Ancillary Procedure [facility] Cardiology - [facility] [address] [place] [address] 03/08/2024 10:15 EDT Ancillary Procedure [facility] Cardiology - [facility] [address] [place] [address] 04/05/2024 10:00 EDT Ancillary Procedure [facility] Cardiology Clinic [address] [place] [phone] 04/05/2024 10:00 EDT Office Visit [facility] Cardiology Clinic [address] [place] [phone] Carlos Ha NP [address] [place] [address] [place] [phone] documented as of this encounter Procedures [...] 136 - 145 mmol/L 06/03/2023 13:01 EST [facility] Potassium 4.8 3.5 - 5.0 mmol/L 06/03/2023 13:01 [facility] Chloride 104 96 - 110 mmol/L 06/03/2023 13:01 [facility] CO2 Total 26 22 - 32 mmol/L 06/03/2023 13:01 [facility] Glucose 314(H) 70 - 99 mg/dl 06/03/2023 13:01 [facility] BUN 18 10 - 26 mg/dL 06/03/2023 13:01 [facility] Creatinine 0.86 0.52 - 1.04 mg/dL 06/03/2023 13:01 [facility] eGFR 72 >60 mL/min/1.7 3m2 06/03/2023 13:01 [facility] Total Protein 6.7 6.3 - 8.2 g/dL 06/03/2023 13:01 [facility] Albumin 3.9 3.4 - 4.9 g/dL 06/03/2023 13:01 [facility] Alkaline Phosphatase 67 38 - 126 U/L 06/03/2023 13:01 [facility] AST 24 15 - 46 U/L 06/03/2023 13:01 [facility] ALT 17 <35 U/L 06/03/2023 13:01 [facility] Bilirubin, Total 0.7 <1.4 mg/dL 06/03/20 13:01 [facility] Calcium 10.6(H) 8.5 - 10.5 mg/dL 06/03/2023 13:01 [facility] Albumin/Globulin Ratio 1.4 1.0 - 2.5 g/dL 06/03/2023 13:01 [facility] Anion Gap 8 5 - 14 mmol/L 06/03/2023 13:01 [facility] Blood VENOUS BLOOD / Unknown Venipuncture / Unknown 06/03/2023 12:20 EST 06/03/2023 12:36 EST Carlos Ha HEEL TOP LIFT SPLITTER CHEMISTRY & BLOOD GA S ORDERABLES [facility] [address] [place] [address] * (ABNORMAL) NT PRO BNP (06/03/2023 12:20 EST) NT-pro BNP 1,740(H) <221 pg/mL 06/03/2023 13:11 EST [facility] Comment: In the acute setting NT-proBNP values <300 pg/mL have a 98% NPV for excluding acute heart failure. In outpatient populations, NT-proBNP values <125 have a 99% NPV for excluding heart failure. Blood VENOUS BLOOD / Unknown Venipuncture / Unknown 06/03/2023 12:20 EST 06/03/2023 12:36 EST Carlos Ha NP CHEMISTRY & BLOOD GA S ORDERABLES [facility] [address] [place] [address] documented in this encounter Visit Diagnoses Diagnosis Chronic heart failure with preserved ejection fraction (HCC-CMS) documented in this encounter Care Teams Money Room Supervisor Relationship Specialty Start Date End Date Elba Jett MD [address] [place] [phone] PCP - General Family Medicine - Primary Care 05/18/23 Carlos Ha NP [address] [place] [address] [address] [place] [phone] Consulting Clinician Cardiovascular Disease 09/14/21 documented as of this encounter
--- OUTSIDE RECORDS SUMMARY | 2024-01-12 11:19 | XMS_ITS | Encounter Summary ---
Author Organization [facility] Address [address] [place] [address] Care Team Providers Care Letter Sorting Machine Operator Name Role Phone Bryant Crain MD Primary Care Provider [phone] Carlos Ha ATTIC FANS MECHANIC Unavailable [phone] Reason for Visit * Reason Onset Date Comments Prior Auth, Other (i.e. radiology, etc.) 023 Encounter Details Date Type Department Care Team (Late st Contact Info) Description 03/03/[address] [facility] Cardiology - [place] [address] Lefty Moss MD [address] [facility] 1 [place] [address] Prior Auth, Other (i.e. radiology, [...] - 03/03/2023 1046 EDT FYI: Trista, with [facility] Appeals Dept, is providing information for JALEN Pearson, that thethere has been a prior auth approval issued for a cardiac implant device, approval # [id number]. Per caller, the approval is valid from today, 03/03/23 too 04/17/23. Per caller, she will send a fax with the approval information to the attention of RN. documented in this encounter Plan of Treatment Upcoming Encounters Date Type Department Care Team (Late st Contact Info) Description 03/08/2024 9:30 EDT Ancillary Procedure [facility] Cardiology [place] [address] 03/08/2024 10:15 EDT Ancillary Procedure [facility] Cardiology [place] [address] 04/05/2024 10:00 EDT Ancillary Procedure [facility] [address] [place] [id number] 04/05/2024 10:00 EDT Office Visit [facility] [address] [place] [address] Carlos Ha NP [address] [place] [phone] documented as of this encounter Visit Diagnoses Not on filedocumented in this encounter Care Teams Letter Sorting Machine Operator Relationship Specialty Start Date End Date Bryant Crain MD [address] [place], [place] [phone] PCP - General 05/04/15 05/17/23 Carlos Ha NP [address] [place] [address] Consulting Clinician Cardiovascular Disease 09/14/21 documented as of this encounter
--- OUTSIDE RECORDS SUMMARY | 2024-01-12 11:19 | XMS_ITS | Encounter Summary ---
Author Organization [facility] Address [address] [place] [address] Care Team Providers Care Pit Tanner Name Role Phone Bryant Crain MD Primary Care Provider [phone] Carlos Ha BERRY PICKER MACHINE OPERATOR Unavailable [phone] Reason for Visit * Auth/Cert (Routine) Specialty Diagnoses / Procedures [facility] Referred To Contact Diagnoses Hypertrophic cardiomyopathy (HCC-CMS) PAF (paroxysmal atrial fibrillation) (HCC-CMS) Hypertrophic cardiomyopathy (HCC-CMS) (HCC) [I42.2] PAF (paroxysmal atrial fibrillation) (HCC-CMS) (HCC) [I48.0] Procedures NE INSJ/RPLCMT PERM DFB W/TRNSVNS LDS 1/DUAL CHMBR ICD New System Dual Lefty Moss MD [address] [place] [id number] Referral ID Status Reason Start Date Expiration Date Visits Re quested Visits Authorized [id number] 02/16/2023 1 1 Encounter Details Date Type Department Care Team (Late st Contact Info) Description 03/15/2023 6:20 EDT - 03/16/2023 12:30 EDT Hospital Encounter [facility] Cardiac Unit [address] [place], [place] [address] Lefty Moss MD [address] [place] [address], [place] [address] Hudson Smith MD [address] [address] Miriam Capps MD [address] [address] Hypertrophic cardiomyopathy (HCC-CMS); PAF (paroxysmal atrial fibrillation) ([facility]-CMS) Discharge Disposition: Home or Self Care Social [...] Noted ??? *PAF (paroxysmal atrial fibrillation) (HCC-CMS) ([facility]) 02/16/2023 ??? Hypertrophic cardiomyopathy (HCC-CMS) ([facility]) Resolved Hospital Problems No resolved problems to display. Principal Procedure: Implantable Cardioverter Defibrillator (ICD) Date: 03/15/2023 Procedure:??Biventricular ICD implant Indication:??heart block, ventricular tachycardia, cardiomyopathy and high risk of sudden cardiac shear operator:??Lefty Moss MD Fellow: No Fellow ?? Brief narrative: RA to RAA RV to bundle of his RV to RV apical septum Device mode: DDD Lower rate: 60 Generator Manufactor: [employer] Contrast:?? 0 cc No immediate complication noted [...] Pacemaker device interrogation in 3 months at [facility] cardiology on 06/18/23 Allergies and Immunizations [...] ??? Propoxyphene N-Acetaminophen Other reaction(s): Hallucinations ??? Cdocfdq-Eoq-Qdg Reductase Inhibitors ??? Trulicity [Dulaglutide] Gi Side [...] 03/16/2023 10:30 AM ?? Clinical History/comments: s/p paper stacker-d, heart block, cardiomyopathy; ?? Comparison: 1 day prior. ?? Technique: Frontal and lateral views of the chest. ?? Findings: ?? Lungs: Normal. Pleura/diaphragms: Normal.XR CHEST 2 VIEWS 03/16/2023 10:30 AM ?? Clinical History/comments: s/p paper stacker-d, heart block, cardiomyopathy; ?? Comparison: 1 day [...] 11/11/2022 Discharge Follow Up Appointments Scheduled with [facility] Upcoming Appointments Mar 31, 2023 14:30 PPM/ICD Device Check - In Clinic with [facility] 1 [facility]iology Clinic (--) [address] [facility] [address] Please bring any insurance information and a copayment if required by your insurance company. Mar 31, 2023 14:30 Office Visit Medium with Carlos Ha NP [facility] Clinic (--) [address] [facility] [address] May 18, 2023 14:00 Office Visit with Randy Sebastian MD [facility] Cardiology - [facility] (--) [address] [facility] [place] [address] Kerline Ann PA-C 03/16/2023 12:03 The patient [...] check: March 25 at 11:00am Dr. Crain [phone] Device check: June 18 at 1:00pm Device Clinic [facility] Cardiology [phone] Should the above appointment(s) not work, please call the number listed to reschedule a time that works for you. We are here to help, so should you need assistance prior to your procedure, please feel free to call anyone listed below with questions. EP Claim Review Medical Director - [phone]-if you need to reschedule your procedure [facility] Device Clinic nurse - [phone]~ Zakia Please let me know you have [...] as soon as [place] x [phone]. Do not hesitate to call emergency personnel [...] you travel by air please inform the recovery agent & airport security of your device (ICD). You must be hand searched verses magnetic field. Know your medicines, keep a list with you and take them as prescribed. Family members should learn CPR and are encouraged to become certified if they are capable of doingso. Contact the [employer] for more details. Please tell [...] 4 times /year. Our Outpatient Cardiology Clinic/ [facility] is located at [address] [place] [address] in [place]. These appointments will take approximately 20 minutes and you will be reminded of this date by mail. Clinics are also held in [facility], [facility], [facility]/[place], [facility], [facility]/[place],[facility]/ [place] and [facility]/[place]. We will make arrangements for your follow [...] hesitate to call the cardiac arrhythmia service [phone] or [phone] or1 extension [phone]. For scheduling of appointments and related questions, please call [phone] or extension [phone]. documented in this encounter Medications at Time [...] with long-term current use of insulin ([facility]) by [facility] (non-drug; combo route) route daily. [...] glucose scanning reader (FREESTYLE LO 2 READER) [facility] 1 Device by [facility] (non-drug; combo route) route daily. Dispense one [...] glucose strips (ONE TOUCH COMBO [facility]) -to test blood sugar - twice daily [...] Means Destination Comment s Home or Self Fpc documented in this encounter Progress Notes * [...] -Continue current management -Post procedure x-ray -Hold ENGINEERING PATTERNMAKER eliquis 48 hours post procedure Kerline Ann PA-C 03/15/2023 11:50 * Zakia Dixon RN - 03/08/2023 1003 EDT Images from the original note were not included. [address] [place] [address] 03/08-I spoke with pt and her regarding [...] you go home, you will need a reach lift truck driver. 14. The pre-registration department may [...] or you may prefer to have your reach lift truck driver drop you off at the front entrance. 1. The registration staff will direct you to the surgical waiting room. Please check in with the charge loader and they will notify pre op of [...] check: March 25 at 11:00am Dr. Crain [phone] Device check: June 18 at 1:00pm Device Clinic [facility] Cardiology [phone] Should the above appointment(s) not work, please call the number listed to reschedule a time that works for you. We are here to help, so should you need assistance prior to your procedure, please feel free to call anyone listed below with questions. EP Claim Review Medical Director - [phone]-if you need to reschedule your procedure [facility] Device Clinic nurse - [phone]~ Zakia Please let me know you have [...] orders for this visit: Hypertrophic cardiomyopathy (HCC-CMS) ([facility]) - CASE REQUEST EP LAB - CASE REQUEST EP LAB PAF (paroxysmal atrial fibrillation) (HCC-CMS) ([facility]) - CASE REQUEST EP LAB - CASE [...] History: Diagnosis Date ??? Cerebrovascular accident (CVA) ([facility]) 06/01/2019 ??? Diabetes mellitus, type 2 ([facility]) 01/26/2011 On metformin On metformin ??? Essential hypertension 06/01/2019 ??? Mixed hyperlipidemia 06/05/2019 ??? Nonrheumatic aortic valve stenosis 06/01/2019 ??? Paroxysmal atrial fibrillation (HCC-CMS) ([facility]) 06/01/2019 No past surgical history on file. [...] ??? Propoxyphene N-Acetaminophen Other reaction(s): Hallucinations ??? Aktnbut-Bvb-Kwn Reductase Inhibitors ??? Trulicity [Dulaglutide] Gi Side [...] glucose scanning reader (FREESTYLE LO 2 READER) [facility], 1 Device by [facility] (non-drug; combo route) route daily. Dispense one [...] cardiomyopathy and high risk of sudden cardiac shear operator: Lefty Moss MD Fellow: No Fellow Brief narrative: RA to RAA RV to bundle of his RV to RV apical septum Device mode: DDD Lower rate: 60 Generator Manufactor: [employer] Contrast: 0 cc No immediate complication noted [...] The patient was considered stable to transfer press smith helper will give 1:1 verbal report Share: No [...] of this note (via Provider Access services) BERRY PICKER MACHINE OPERATOR/PA on EP service (via Provider Access services) Attending on the EP service (via Provider Access services or PAGER #[phone]) After 16:00 coal chute worker on EP service (via Provider Access services) Attending on the EP service (via Provider Access services or PAGER #[phone]) Other contact numbers: EP lab - [id number] - EP lab OR7 - [phone] EP (nurse of the day) NOD - [phone] or page [phone] label coder - [phone] Overhead Double page cardiology If the above calls have failed to generate satisfactory bedside assistance within 15 minutes, and the patient's condition has not yet stabilized, call the Rapid Response Team. documented in this encounter Miscellaneous Notes * Plan of Care - Ana Hicks RN - 03/16/2023 1230 EDT Problem: Daily Care Plan Goals Goal: Care Plan Documentation Outcome: Completed Flowsheets (Taken 03/16/2023 5508) Area of Focus: Discharge Plan Goal This [...] Care - Aneudy Cannon RN - 03/15/2023 7728 EDT Data: Joanna is admitted to from [...] pacing in the future Will plan for POULTRY HANGER-d conduction system pacing lead, plus ICD Indication [...] 03/08/2024 9:30 EDT Ancillary Procedure [facility] Cardiology - [place] [address] [place] [address] 03/08/2024 10:15 EDT Ancillary Procedure [facility] Cardiology - [place] [address] [place] [address] 04/05/2024 10:00 EDT Ancillary Procedure [facility] Clinic [address] [place] [address] 04/05/2024 10:00 EDT Office Visit [facility] [address] [place] [address] Carlos Ha, RAHEEM [address] [place] [address] [place] [address] Pending Results Name Type Priority [...] EDT) 03/18/2023 11:3 2 EDT Scan 2 Emergency Services Director PROCEDURE/MINOR CROW GICAL ORDERABLES * ECG REPORT - SCANNED (03/18/2023 8:34 EDT) 03/18/2023 8:34 EDT Scan 2 Emergency Services Director PROCEDURE/MINOR CROW GICAL ORDERABLES * IMPLANT RECORD - SCANNED (03/17/2023 16:24 EDT) 03/17/2023 16:2 4 EDT Scan 2 Emergency Services Director PROCEDURE/MINOR CROW GICAL ORDERABLES * ECG REPORT - SCANNED (03/17/2023 16:24 EDT) 03/17/2023 16:2 4 EDT Scan 2 Emergency Services Director PROCEDURE/MINOR CROW GICAL ORDERABLES * (ABNORMAL) POCT GLUCOSE, INTERFACED (03/16/2023 11:36 EDT) Glucose, POC 212(H) 70 - 100 mg/dL 03/16/2023 11:44 EDT [facility] HN LAB POC COMMENT (GLUCOSE) Test Performed by Nursing Services 03/16/2023 11:44 EDT [facility] Blood CAPILLARY BLOOD / Unknown 03/16/2023 11:36 EDT 03/16/2023 11:44 EDT Kerline Ann PA-C POINT OF CARE TEST O RDERABLES [facility] [address] [place] [address] * XR CHEST 2 VIEWS (03/16/2023 10:27 EDT) Anatomical Region Laterality Modality Computed Radiogr aphy 03/16/2023 10:4 0 EDT Impressions 03/16/2023 10:40 EDT Satisfactory postprocedural chest radiograph. [id number] Narrative 03/16/2023 10:40 EDT XR CHEST 2 VIEWS ??03/16/2023 10:30 AM Clinical History/comments: s/p paper stacker-d, heart block, cardiomyopathy; Comparison: 1 day prior. [...] VIEWS 03/16/2023 10:30 AM Clinical History/comments: s/p paper stacker-d, heart block, cardiomyopathy; Comparison: 1 day prior. [...] Bones: Normal. IMPRESSION Satisfactory postprocedural chest radiograph. [id number] Lefty Moss MD IMG DIAGNOSTIC I MAGING [...] 70 - 100 mg/dL 03/16/2023 9:01 EDT [facility] HN LAB POC COMMENT (GLUCOSE) Test Performed by Nursing Services 03/16/2023 9:01 EDT [facility] Blood CAPILLARY BLOOD / Unknown 03/16/2023 8:59 EDT 03/16/2023 9:01 EDT Kerline DRAKE-C POINT OF CARE TEST O RDERABLES [facility] [address] [place] [address] * (ABNORMAL) POCT GLUCOSE, INTERFACED (03/15/2023 23:57 EDT) Glucose, POC 314(H) 70 - 100 mg/dL 03/15/2023 23:58 EDT [facility] HN LAB POC COMMENT (GLUCOSE) Test Performed by Nursing Services 03/15/2023 23:58 EDT [facility] Blood CAPILLARY BLOOD / Unknown 03/15/2023 23:57 EDT 03/15/2023 23:58 EDT Lefty Moss MD POINT OF CARE TE ST ORDERABLES Performing Organization Address City/Special Care [facility]/ZIP Co de Phone Number [facility] [address] [place] [address] * (ABNORMAL) POCT GLUCOSE, INTERFACED (03/15/2023 20:19 EDT) Glucose, POC 467(H) 70 - 100 mg/dL 03/15/2023 20:21 EDT [facility] HN LAB POC COMMENT (GLUCOSE) Test Performed by Nursing Services 03/15/2023 20:21 EDT [facility] Blood CAPILLARY BLOOD / Unknown 03/15/2023 20:19 EDT 03/15/2023 20:21 EDT Kerline DRAKE-C POINT OF CARE TEST O RDERABLES Performing Organization Address [facility] Co de Phone Number [facility] [address] [place] [address] * (ABNORMAL) POCT GLUCOSE, INTERFACED (03/15/2023 16:27 EDT) Glucose, POC 428(H) 70 - 100 mg/dL 03/15/2023 16:32 EDT [facility] HN LAB POC COMMENT (GLUCOSE) Test Performed by Nursing Services 03/15/2023 16:32 EDT [facility] Blood CAPILLARY BLOOD / Unknown 03/15/2023 16:27 EDT 03/15/2023 16:32 EDT Kerline DRAKE-C POINT OF CARE TEST O RDERABLES Performing Organization Address [facility] Co de Phone Number [facility] [address] [place] [address] * (ABNORMAL) POCT GLUCOSE, INTERFACED (03/15/2023 12:59 EDT) Glucose, POC 186(H) 70 - 100 mg/dL 03/15/2023 13:01 EDT [facility] HN LAB POC COMMENT (GLUCOSE) Test Performed by Nursing Services 03/15/2023 13:01 EDT [facility] Blood CAPILLARY BLOOD / Unknown 03/15/2023 12:59 EDT 03/15/2023 13:01 EDT Lefty Moss MD POINT OF CARE TE ST ORDERABLES Performing Organization Address City/[facility] Care [facility] Co de Phone Number [facility] [address] [place] [address] * EKG 12-LEAD (03/15/2023 12:28 EDT) 03/15/2023 12:2 8 EDT Narrative [facility] EKG - 03/18/2023 8:23 EDT ? [facility] ? Test Date: ?2023-03-15 Pat Name: ? JOANNA GAUTAM ?Department: ?? [facility] [address] ? Room: ? EP Gender: ? Female ? Traveling Repair Accountant: ?? [id number] : ?1950 ? Requested By: CHARITY ROMO Order Number: [id number] ? Reading MD: ?? SNEHA LAWRENCE MD ? Measurements Intervals ?Barry ? Rate: ? 64 ? P: ?198 [...] Note Sneha Lawrence MD - 03/18/2023 [facility] Test Date: 2023-03-15 Pat Name: JOANNA HART Department: [place] [address] Room: Gender: Female Traveling Repair Accountant: [id number] : 1950 Requested By: CHARITY TORRES Order Number: [id number] Reading MD: SNEHA LAWRENCE MD Measurements Intervals Barry Rate: 64 P: 198 NE: 125 QRS: 28 QRSD: 149 T: 182 QT: 463 QTc: 480 Interpretive Statements ELECTRONIC ATRIAL PACEMAKER ELECTRONIC VENTRICULAR PACEMAKER Compared to ECG 01/27/2023 10:07:02 Pacing is now present I reviewed the tracing and have either agreed or edited the findings inthis report. Electronically Signed On 03-18-2023 08:23:06 EDT by KATHY HAY. Lefty Moss MD CARDIAC ECG SURENDRA IRAHETA [facility] EKG * XR CHEST PORTABLE 1 VIEW (03/15/2023 12:05 EDT) Anatomical Region Laterality Modality Computed Radiogr aphy 03/15/2023 12:1 4 EDT Impressions 03/15/2023 12:14 EDT Left transvenous implantable cardioverter defibrillator with its leads projecting over the right atrium and right ventricle in this single AP view. [id number] Narrative 03/15/2023 12:14 EDT XR CHEST PORTABLE 1 VIEW ??03/15/2023 11:40 AM Clinical History/comments: s/p paper stacker-d heart block cardiomyopathy; Comparison: Chest radiograph March [...] VIEW 03/15/2023 11:40 AM Clinical History/comments: s/p paper stacker-d heart block cardiomyopathy; Comparison: Chest radiograph March [...] and right ventricle in this single APview. [id number] Lefty Moss MD IMG DIAGNOSTIC I MAGING ORDERABLES * ICD BI-V NEW (03/15/2023 10:47 EDT) Anatomical Region Laterality Modality Cardiac Electrop hysiology Narrative 03/16/2023 11:17 EDT Choose correct report for procedure performed: Attending: Lefty Moss MD Fellow: No Fellow Substitute Nurse :Sabrina Bruno RN Attestation: Attending only- I,Lefty Moss MD, ??performed the entire procedure and was the initial and only author of the report. Procedure: ??POULTRY HANGER- D with conduction system pacing lead. Summary [...] with conduction system pacing lead lead via POULTRY HANGER-d device. On good med rx Indication History: Prior heart failure - yes NYHA class - II LVEF- Yes, 60% Date assessed : 10/2022 ? 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 NICM - yes GDMT max dose - Yes > 3 months Prior Cardiac arrest - no Prior [place] - yes- NSVT Prior [place] - ??no Prior PCI - Yes Prior [...] 70 - 100 mg/dL 03/15/2023 8:09 EDT [facility] HN LAB POC COMMENT (GLUCOSE) Test Performed by Nursing Services 03/15/2023 8:09 EDT [facility] Blood CAPILLARY BLOOD / Unknown 03/15/2023 7:55 EDT 03/15/2023 8:09 EDT Lefty Moss MD POINT OF CARE TE ST ORDERABLES [facility] [address] [place] [address] documented in this encounter Visit Diagnoses Diagnosis [...] 03/16/2023 documented in this encounter Care Teams Pit Tanner Relationship Specialty Start Date End Date Bryant Crain MD [address] [place] [address] PCP - General 05/04/15 05/17/23 Carlos Ha NP [address] [place] [address] [place] [phone] Consulting Clinician Cardiovascular Disease 09/14/21 documented as of this encounter
--- OUTSIDE RECORDS SUMMARY | 2024-01-12 11:19 | XMS_ITS | Encounter Summary ---
Author Organization [facility] Address [address] [place] [address] Care Team Providers Care Lmsw Name Role Phone Bryant Crain MD Primary Care Provider [phone] Carlos Ha COMPUTER SECURITY SPECIALIST Unavailable [phone] Reason for Visit * Reason Onset Date Comments Appointment Related 03/17/2023 Encounter Details Date Type Department Care Team (Late st Contact Info) Description 03/17/2023 Telephone [facility] Cardiology Clinic [address] [place] [address] Carlos Ha, COMPUTER SECURITY SPECIALIST [address] [facility] [place] [address] Appointment Related Social History Tobacco [...] had an ICD placed on 03/[address] [facility], she needs to be scheduled for a [...] Procedure [facility] [place] [address] 03/08/2024 10:15 EDT Ancillary Procedure [facility] [place] [address] 04/05/2024 10:[address] [facility] [address] [place] [address] 04/05/2024 10:[address] [facility] [address] [place] [address] Carlos Ha NP [address] [address] documented as of this encounter Visit Diagnoses Not on filedocumented in this encounter Care Teams Lmsw Relationship Specialty Start Date End Date Bryant Crain MD [address] [place], [place] [id number] PCP - General 05/04/15 05/17/23 Carlos Ha NP [address] [address] Consulting Clinician Cardiovascular Disease 09/14/21 documented as of this encounter
--- OUTSIDE RECORDS SUMMARY | 2024-01-12 11:19 | XMS_ITS | Encounter Summary ---
Author Organization [facility] Address [address] [place] [address] Care Team Providers Care Button Pusher Name Role Phone Bryant Crain MD Primary Care Provider [phone] Carlos Ha SHIPMASTER Unavailable [phone] Elba Jett MD Primary Care Provider [phone] Reason for Visit * Reason Onset Date Comments Medication Management 04/01/2023 Encounter Details Date Type Department Care Team (Late st Contact Info) Description 04/01/2023 Telephone [facility] [place] [address] [place] [address] Carlos Ha, SHIPMASTER 130 [facility] [address] [place] [address] Medication Management Social History Tobacco [...] Info) Description 03/08/2024 9:30 EDT Ancillary Procedure [facility] Cardiology - [place] [address] [place] [address] 03/08/2024 10:15 EDT Ancillary Procedure [facility] Cardiology - [place] [address] [place] [address] 04/05/2024 10:00 EDT Ancillary Procedure [facility] Cardiology Clinic [address] [place] [address] 04/05/2024 10:00 EDT Office Visit [facility] Cardiology Clinic [address] [place] [address] Carlos Ha NP [address] [place] [phone] documented as of this encounter Visit Diagnoses Not on filedocumented in this encounter Care Teams Button Pusher Relationship Specialty Start Date End Date Bryant Crain MD [address] [address] PCP - General 05/04/15 05/17/23 Elba Jett MD [address] [place] [phone] PCP - General Family Medicine - Primary Care 05/18/23 Carlos Ha NP [address] [place] [phone] Consulting Clinician Cardiovascular Disease 09/14/21 documented as of this encounter
--- OUTSIDE RECORDS SUMMARY | 2024-01-12 11:20 | XMS_ITS | Encounter Summary ---
Author Organization [facility] Address [address] [place] [address] Care Team Providers Care Etymology Professor Name Role Phone Bryant Crain MD Primary Care Provider Carlos Ha CLEANING MATRON Unavailable [phone] Reason for Visit * Reason Onset Date Comments Hospital Discharge Follow Up 12/24/2022 Encounter Details Date Type Department Care Team (Late st Contact Info) Description 12/24/2022 Telephone [facility] Cardiac Unit [address] [place] [address] Chandni Alcala, RN [address] [place] [address] Hospital Discharge Follow Up Social History Tobacco [...] daily. Quantity: 30 Tablet FreeStyle Lo 2 [place] misc Refills: 0 Generic drug: flash glucose [...] /4 needle Refills: 0 Generic drug: Insulin [place] (Disposable) * This list has 2 medication(s) [...] Office Visit Medium with Carlos Ha NP [facility] Cardiology Clinic (--) [address] [facility] [address] Patient has understanding of their appointments. [...] Info) Description 03/08/2024 9:30 EDT Ancillary Procedure [facility] Cardiology - [facility] [address] [facility] [address] [place] [id number] 03/08/2024 10:15 EDT Ancillary Procedure [facility] Cardiology - [facility] [address] [facility] [address] [place], [place] [phone] 04/05/2024 10:00 EDT Ancillary Procedure [facility] Cardiology Clinic [address] [place] [phone] 04/05/2024 10:00 EDT Office Visit [facility]iology Clinic [address] [place] [phone] Carlos Ha NP [address] [place] [phone] documented as of this encounter Visit Diagnoses Not on filedocumented in this encounter Care Teams Etymology Professor Relationship Specialty Start Date End Date Bryant Crain MD [address] [place], [place] [phone] PCP - General 05/04/15 05/17/23 Carlos Ha NP [address] [place] [phone] Consulting Clinician Cardiovascular Disease 09/14/21 documented as of this encounter
--- OUTSIDE RECORDS SUMMARY | 2024-01-12 11:20 | XMS_ITS | Encounter Summary ---
Author Organization [facility] Address [address] [place] [address] Care Team Providers Care Shot Fireman Name Role Phone Bryant Crain MD Primary Care Provider [phone] Carlos Ha FINANCIAL AID ADVISOR Unavailable [phone] Reason for Visit * Reason Onset Date Comments Coordination Of Care 02/04/2023 Encounter Details Date Type Department Care Team (Late st Contact Info) Description 02/04/2023 Telephone [facility] Cardiology - [address] [place] [address] Tyrone Burris, RN Coordination Of [...] - 02/04/2023 0901 EDT Fax sent to [email or web address] [phone] for HCM lab request documented in this encounter Plan of Treatment Upcoming Encounters Date Type Department Care Team (Late st Contact Info) Description 03/08/2024 9:30 EDT Ancillary Procedure [facility] Cardiology - [place] [address] [address] [place], [place] [phone] 03/08/2024 10:15 EDT Ancillary Procedure [facility] Cardiology - [address] [place] [address] 04/05/2024 10:00 EDT Ancillary Procedure [facility] Cardiology Clinic [address] [place] [phone] 04/05/2024 10:00 EDT Office Visit [facility] Cardiology Clinic [address] [place] [phone] Carlos Ha NP [address] [facility] [address] [place] [address] documented as of this encounter Visit Diagnoses Not on filedocumented in this encounter Care Teams Shot Fireman Relationship Specialty Start Date End Date Bryant Crain MD [address] [place], [place] [phone] PCP - General 05/04/15 05/17/23 Carlos Ha NP [address] [place] [phone] Consulting Clinician Cardiovascular Disease 09/14/21 documented as of this encounter
--- OUTSIDE RECORDS SUMMARY | 2024-01-12 11:20 | XMS_ITS | Encounter Summary ---
Author Organization [facility] Address [address] [place] [address] Care Team Providers Care Latin American Studies Professor Name Role Phone Bryant Crain MD Primary Care Provider [phone] Carlos Ha CHAIRMAN [employer] FOUNDER Unavailable Encounter Details Date Type Department Care Team (Late st Contact Info) Description 01/27/2023 16:50 EDT Phlebotomy Only [facility] - Outpatient Phlebotomy Drawing [address] [place] [address] Lab, [facility] Op Phlebotomy (HFpEF) heart failure with preserved [...] Description 03/08/2024 9:30 EDT Ancillary Procedure [facility] Cardiology - [place] [address] [address] [place], [place] [phone] 03/08/2024 10:15 EDT Ancillary Procedure [facility] Cardiology [place] [address] [place] [address] 04/05/2024 10:00 EDT Ancillary Procedure [facility] Cardiology Clinic [address] [place] [id number] 04/05/2024 10:00 EDT Office Visit [facility] Cardiology Clinic [address] [place] [phone] Carlos Ha, RAHEEM [address] [place] [address]-[address] [place] [address] documented as of this encounter [...] - 264 ng/mL 01/27/2023 18:19 EDT [facility] Blood VENOUS BLOOD / Unknown Venipuncture / Unknown 01/27/2023 16:59 EDT 01/27/2023 17:09 EDT Narrative [facility] - 01/27/2023 18:19 EDT The results of this assay can be falsely lowered due to the consumption of Biotin. Randy Sebastian MD CHEMISTRY & BLOOD GA S ORDERABLES Performing Organization Address City/[facility]/ZIP Co de Phone Number [facility] [address] [place] [address] * (ABNORMAL) TRANSFERRIN SATURATION (01/27/2023 16:59 EDT) Iron 52 37 - 170 ??g/dL 01/27/2023 17:48 EDT [facility] Iron Binding Capacity 365 240 - 450 ??g/dL 01/27/2023 17:48 EDT [facility] Transferrin Saturation 14(L) 15 - 45 % 01/27/2023 17:48 EDT [facility] Blood VENOUS BLOOD / Unknown Venipuncture / Unknown 01/27/2023 16:59 EDT 01/27/2023 17:09 EDT Randy Sebastian MD CHEMISTRY & BLOOD GA S ORDERABLES Performing Organization Address City/[facility]/ZIP Co de Phone Number [facility] [address] [place] [phone] * (ABNORMAL) COMPLETE BLOOD COUNT (01/27/2023 16:59 EDT) WBC 7.97 4.00 - 12.40 K/cmm 01/27/2023 17:09 [facility] RBC 4.49 3.86 - 5.04 M/cmm 01/27/2023 17:09 [facility] Hemoglobin 10.5(L) 11.6 - 15.2 g/dL 01/27/2023 17:09 [facility] HCT 36.1 34.9 - 44.4 % 01/27/2023 17:09 [facility] MCV 80(L) 81 - 98 fL 01/27/2023 17:09 [facility] MCH 23.4(L) 26.7 - 33.3 pg 01/27/2023 17:09 [facility] Hypochromia 1+ 01/27/2023 17:09 [facility] MCHC 29.1(L) 32.1 - 35.9 g/dL 01/27/2023 17:09 [facility] RDW-CV 23.9(H) <14.7 % 01/27/2023 17:09 [facility] RDW-SD 68.2(H) <50.4 fl 01/27/2023 17:09 [facility] Anisocytosis 2+ 01/27/2023 17:09 [facility] PLT 419(H) 141 - 377 K/cmm 01/27/2023 17:09 [facility] MPV 10.3 9.5 - 12.7 fL 01/27/2023 17:09 [facility] Blood VENOUS BLOOD / Unknown Venipuncture / Unknown 01/27/2023 16:59 EDT 01/27/2023 17:05 EDT Randy Sebastian MD HEMATOLOGY & PF4 ORD ERABLES [facility] [address] [place] [address] * (ABNORMAL) BASIC METABOLIC PANEL (BMP) (01/27/2023 16:59 EDT) [facility] Sodium 138 136 - 145 mmol/L 01/27/2023 17:39 [facility] Potassium 4.6 3.5 - 5.0 mmol/L 01/27/2023 17:39 [facility] Chloride 106 96 - 110 mmol/L 01/27/2023 17:39 [facility] CO2 Total 22 22 - 32 mmol/L 01/27/2023 17:39 [facility] Anion Gap 10 5 - 14 mmol/L 01/27/2023 17:39 [facility] Glucose 222(H) 70 - 99 mg/dl 01/27/2023 17:39 [facility] Calcium 10.8(H) 8.5 - 10.5 mg/dL 01/27/2023 17:39 [facility] BUN 22 10 - 26 mg/dL 01/27/2023 17:39 [facility] Creatinine 1.11(H) 0.52 - 1.04 mg/dL 01/27/2023 17:39 [facility] eGFR 53(L) >60 mL/min/1.73 m2 01/27/2023 17:39 [facility] Blood VENOUS BLOOD / Unknown Venipuncture / Unknown 01/27/2023 16:59 EDT 01/27/2023 17:09 EDT Randy Sebastian MD CHEMISTRY & BLOOD GA S ORDERABLES Performing Organization Address City/[facility]/ZIP Co de Phone Number [facility] [address] [place] [address] * (ABNORMAL) NT PRO BNP (01/27/2023 16:59 EDT) Pathologist [facility] NT-pro BNP 1,360(H) <221 pg/mL 01/27/2023 17:53 [facility] Comment: In the acute setting NT-proBNP values <300 pg/mL have a 98% NPV for excluding acute heart failure. In outpatient populations, NT-proBNP values <125 have a 99% NPV for excluding heart failure. Blood VENOUS BLOOD / Unknown Venipuncture / Unknown 01/27/2023 16:59 EDT 01/27/2023 17:09 EDT Randy Sebastian MD CHEMISTRY & BLOOD GA S ORDERABLES [facility] [address] [place] [address] documented in this encounter Visit Diagnoses Diagnosis (HFpEF) heart failure with preserved ejection fraction (HCC-CMS) Heart failure, unspecified Hypertrophic cardiomyopathy (HCC-CMS) Other hypertrophic cardiomyopathy Iron deficiency anemia Iron deficiency anemia, unspecified documented in this encounter Care Teams Latin American Studies Professor Relationship Specialty Start Date End Date Bryant Crain MD [address] [place], [place] [phone] PCP - General 05/04/15 05/17/23 Carlos Ha NP [address] [facility] MOB-A [address] [place] [phone] Consulting Clinician Cardiovascular Disease 09/14/21 documented as of this encounter
--- OUTSIDE RECORDS SUMMARY | 2024-01-12 11:20 | XMS_ITS | Encounter Summary ---
Author Organization [facility] Address [address] [place] [address] Care Team Providers Care Machine Heel Seat Fitter Name Role Phone Bryant Crain MD Primary Care Provider [phone] Carlos Ha BEAM WARPER Unavailable [phone] Reason for Referral * Cardiology (Routine/Next Available) - Authorized Specialty Diagnoses / Procedures [facility] Referred To Contact Diagnoses NSTEMI (non-ST elevated myocardial infarction) (HCC-CMS) Hypertrophic cardiomyopathy (HCC-CMS) NSVT (nonsustained ventricular tachycardia) (HCC-CMS) Procedures CARDIAC EVENT MONITOR NM XTRNL MOBILE CV TELEMETRY W/I&REPORT 30 DAYS NM XTRNL PT ACTIVTD ECG DWNLD W/R&I </30 DAYS Shawna Terry MD [facility] [address] [phone] [facility] Referral ID Status Reason Start Date Expiration Date V isits Requested Visits Authorized [id number] Authorized 11/14/2022 1 1 Reason for Visit * Cardiology (Routine/Next Available) - Authorized Specialty Diagnoses / Procedures Referred By Contac t Referred To Contact Diagnoses NSTEMI (non-ST elevated myocardial infarction) (HCC-CMS) Hypertrophic cardiomyopathy (HCC-CMS) NSVT (nonsustained ventricular tachycardia) ([facility]) Procedures CARDIAC EVENT MONITOR NM XTRNL MOBILE CV TELEMETRY W/I&REPORT 30 DAYS NM XTRNL PT ACTIVTD ECG DWNLD W/R&I </30 DAYS Shawna Terry MD [facility] [address] [place] [phone] [facility] Referral ID Status Reason Start Date Expiration Date V isits Requested Visits Authorized [id number] Authorized 11/14/2022 1 1 Encounter Details Date Type Department Care Team (Latest Contact Info) Description 12/30/2022 8:57 EDT - 12/30/2022 23:59 EDT Hospital Encounter [facility] Non-Invasive Cardiology - [address] [address] NSTEMI (non-ST elevated myocardial infarction) ([facility]); Hypertrophic cardiomyopathy ([facility]); NSVT (nonsustained ventricular tachycardia) ([facility]) Discharge Disposition: Home or Self Care Social [...] hyperglycemia, with long-term current use of insulin ([facility]) by [facility] (non-drug; combo route) route daily. [...] glucose scanning reader (FREESTYLE VICKY 2 READER) [facility] 1 Device by [facility] (non-drug; combo route) route daily. [...] Info) Description 03/08/2024 9:30 EDT Ancillary Procedure [facility] [place] [address] 03/08/2024 10:15 EDT Ancillary Procedure [facility] [place] [address] 04/05/2024 10:00 EDT Ancillary Procedure [facility] Cardiology Clinic [address] [place] [address] 04/05/2024 10:00 EDT Office Visit [facility] Cardiology Clinic [address] [place] [address] Carlos Ha NP 130 [facility] [address] [phone] documented as of this encounter Procedures Procedure Name Priority Date/Time Associated Diagnosis Comments 30 DAY UNINDENTURED APPRENTICE Routine 12/30/2022 8:57 EDT NSTEMI (non-ST elevated [...] tachycardia documented in this encounter Care Teams Machine Heel Seat Fitter Relationship Specialty Start Date End Date Bryant Crain MD [address] [place] [address] PCP - General 05/04/15 05/17/23 Carlos Ha NP 130 [facility] [address] [place] [address] Consulting Clinician Cardiovascular Disease 09/14/21 documented as of this encounter
--- OUTSIDE RECORDS SUMMARY | 2024-01-12 11:20 | XMS_ITS | Encounter Summary ---
Author Organization [facility] Address [address] [place] [address] Care Team Providers Care Assurance Specialist Name Role Phone Bryant Crain MD Primary Care Provider [phone] Carlos Ha CRECHE ATTENDANT Unavailable [phone] Reason for Visit * Reason Comments Follow-up Encounter Details Date Type Department Care Team (Latest Contact Info) Description 01/27/2023 16:00 EDT Office Visit [facility] Cardiology Clinic [address] [place] [address] Carlos Ha, CRECHE ATTENDANT 130 [facility] [address] [place] [address] Chronic heart failure with preserved [...] this encounter Progress Notes * Carlos Ha, CRECHE ATTENDANT - 01/27/2023 1600 EDT Images from the [...] was cancelled as she presented to [facility] ED on the day it was scheduled. She presented to [facility] on with complaints of fatigue, chest [...] and octreotide. She was then transferred to [facility]. Repeat EDG showed esophagitis, scattered petechia [...] she has noticed improvement in hersymptoms since [facility] with PCI. I feel the same. Still weak and fatigued with most activities. [facility] Cryptogenic stroke (left MCA) 2017 with Medtronic loop 2016. ASA recently started during admission at [facility] 08/2022 Paroxysmal atrial fibrillation (2 hr episode noted on monitor 2018.Started on Eliquis. No further episodes noted) NSVT (1 episode August 2019 with negative MPI) AVB type I and II - noted on surveillance system monitor during recent admission Hypertension, Hyperlipidemia (LDL 65 in 2021: She has been intolerant to multiple statins now on REPATHA) DM2 (A1C 7.1) CKD III Kidney stone 11/02 passed Duodenal ulcer and esophagitis with acute GIB admit to [facility] 11/11-11/14. D/C on Protonix. ?Parkinson's Disease SH Lives in [place] with spouse Has three grown children She [...] 1/4 needle ??? blood glucose meter by [facility] (non-drug; combo route) route daily. One touch [...] glucose scanning reader (FREESTYLE VICKY 2 READER) [facility] 1 Device by [facility] (non-drug; comboroute) route daily. Dispense one reader [...] ??? lancets/blood glucose strips (ONE TOUCH COMBO [facility]) -to [...] ??? Propoxyphene N-Acetaminophen Other reaction(s): Hallucinations ??? Sllimhj-Aph-Bxc Reductase Inhibitors ??? Trulicity [Dulaglutide] Gi Side [...] dilation (TID) with a value of 1.4 [facility] 12/08/2022 CORONARY ARTERIES: The coronary circulation [...] from base to apex. The distal apex ([id number]) is concentrically involved by delayed enhancement. Left [...] 90% stenosis of RCA found on angiography. [facility] completed 12/08/22 with successful RCA stenting. -Tolerating Plavix. ASA discontinued while on Eliquis (hx of GIB due to esophagitis requiring transfusion) -Continue BB and Repatha -Hold Cardiac Rehab until she is symptomatically doing better 2. HCM severe asymmetric hypertrophy of LV with septal thickness 1.9 cm. Work up includes MCOT which she will start today. Awaiting MRI at [facility] 12/31. Spoke with Dr. Sebastian at [facility] who saw her in consultation. Referral sent to have him follow up with her as outpatient. Awaiting appointment. Low dose Metoprolol started while at [facility] -Consultation with Dr. Sebastian today. -No medication [...] [facility] Cardiology [place] [address] 03/08/2024 10:15 EDT Ancillary Procedure [facility] Cardiology - [address] [place], [place] [phone] 04/05/2024 10:00 EDT Ancillary Procedure [facility] Cardiology Clinic [address] [place] [phone] 04/05/2024 10:00 EDT Office Visit [facility] Cardiology Clinic [address] [place] [address] Carlos Ha NP [address] [place] [phone] documented as of this encounter Visit Diagnoses Diagnosis Chronic heart failure with preserved ejection fraction (HCC-CMS)- Primary Hypertrophic cardiomyopathy (HCC-CMS) Other hypertrophic cardiomyopathy Ventricular tachycardia (HCC-CMS) Paroxysmal ventricular tachycardia Paroxysmal atrial fibrillation (HCC-CMS) Atrial fibrillation Essential hypertension Unspecified essential hypertension Mixed hyperlipidemia documented in this encounter Care Teams Assurance Specialist Relationship Specialty Start Date End Date Bryant Carin MD [address] [place] [address] PCP - General 05/04/15 05/17/23 Carlos Ha NP [address] [place] [address] [phone] Consulting Clinician Cardiovascular Disease 09/14/21 documented as of this encounter
--- OUTSIDE RECORDS SUMMARY | 2024-01-12 11:20 | XMS_ITS | Encounter Summary ---
Author Organization [facility] Address [address] [place] [address] Care Team Providers Care Bronc Breaker Name Role Phone Bryant Crain MD Primary Care Provider [phone] Carlos Ha CONFECTIONERY DROPS MACHINE OPERATOR Unavailable [phone] Elba Jett MD Primary Care Provider [phone] Reason for Visit * Reason Onset Date Comments Appointment Related 01/05/2023 Encounter Details Date Type Department Care Team (Late st Contact Info) Description 01/05/2023 Telephone [facility] Cardiology - [address] [address] Edgardo Ha MD [address] [place] [address] [address] [place] [address] Appointment Related Social History Tobacco [...] original note were not included. Carlos Ha, CONFECTIONERY DROPS MACHINE OPERATOR Sabrina Herring MA Can you follow up with Dr. Sebastian's staff to have them schedule her in the next 2 weeks or so Thanks, Carlos Gonzalez called and spoke with Dr. Sebastian directly about seeing patient in the next two weeks. Forwarding msg from Carlos about scheduling. * Telephone Encounter - Earl Miles - 01/05/2023 1121 EDT Sabrina at [facility] called concerning Urgent ref just sent for this pt to be seen. They req we contact the pt. Please advise documented in this encounter Plan of Treatment Upcoming Encounters Date Type Department Care Team (Late st Contact Info) Description 03/08/2024 9:30 EDT Ancillary Procedure [facility] Cardiology [place] [address] 03/08/2024 10:15 EDT Ancillary Procedure [facility] Cardiology - [address] [place] [address] 04/05/2024 10:00 EDT Ancillary Procedure [facility] Cardiology Clinic [address] [place] [phone] 04/05/2024 10:00 EDT Office Visit [facility] Cardiology Clinic [address] [place] [address] Carlos Ha, CONFECTIONERY DROPS MACHINE OPERATOR [address] [place] [phone] documented as of this encounter Visit Diagnoses Not on filedocumented in this encounter Care Teams Bronc Breaker Relationship Specialty Start Date End Date Bryant Crain MD [address] [place] [address] PCP - General 05/04/15 05/17/23 Elba Jett MD [address] [place] [address] PCP - General Family Medicine - Primary Care 05/18/23 Carlos Ha, CONFECTIONERY DROPS MACHINE OPERATOR [address] [place] [phone] Consulting Clinician Cardiovascular Disease 09/14/21 documented as of this encounter
--- OUTSIDE RECORDS SUMMARY | 2024-01-12 11:20 | XMS_ITS | Encounter Summary ---
Author Organization [facility] Address [address] [place] [address] Care Team Providers Care Insemination Worker Name Role Phone Bryant Crain MD Primary Care Provider [phone] Carlos Ha REGIONAL SALES COORDINATOR Unavailable [phone] Reason for Referral * Cardiology (Routine/Next Available) - New Request Specialty Diagnoses / Procedures Referred By Contac t Referred To Contact Diagnoses Ventricular tachycardia (HCC-CMS) Procedures EKG 12-LEAD Carlos Ha NP [address] [address] Referral ID Status Reason Start Date Expiration Date V isits Requested Visits Authorized [id number] New Request 01/05/2023 1 1 * Consult (Routine/Next Available) - Specialty Report Received Specialty Diagnoses / Procedures Referred By Contac t Referred To Contact Cardiology Diagnoses Hypertrophic cardiomyopathy (HCC-CMS) Chronic heart failure with preserved ejection fraction (HCC-CMS) ASCVD (arteriosclerotic cardiovascular disease) Ventricular tachycardia (HCC-CMS) Paroxysmal atrial fibrillation (HCC-CMS) Essential hypertension Mixed hyperlipidemia Carlos Ha NP [address] [place] [address] Randy Sebastian MD [address] [place] [phone] Referral ID Status Reason Start Date Expiration Date Visits Requested Visits Authorized [id number] Specialty Report Received Specialty Services Required 01/05/2023 1 1 Question Answer Reason for Request: diagnostic testing completed [facility] (MADONNA X1 RCA). HCM s/p MRI. Assist [...] ejection fraction (HFpEF) (HCC-CMS) Hypertrophic cardiomyopathy (HCC-CMS) [facility] Card[facility] Clinic [address] [place] [address] Referral ID Status Reason Start Date Expiration Date Visits Requested Visits Authorized [id number] Authorization Not Required Continuity of Care 1 1 Encounter Details Date Type Department Care Team (Latest Contact Info) Description 01/05/2023 11:[address] [facility] [address] [place] [address] Carlos Ha NP [address] [place] [address]-[address] [place] [address] Hypertrophic cardiomyopathy (HCC-CMS) (Primary Dx); [...] this encounter Progress Notes * Carlos Ha, REGIONAL SALES COORDINATOR - 01/05/2023 1145 EDT Images from the [...] and octreotide. She was then transferred to [facility]. Repeat EDG showed esophagitis, scattered [...] in for NSTEMI. She was transferred to [facility] for LHC 12/08/2022 with severe single [...] she has noticed improvement in hersymptoms since [facility] with PCI. I feel the same. Still weak and fatigued with most activities. [facility] Cryptogenic stroke (left MCA) 2017 with Medtronic loop 2016. ASA recently started during admission at [facility] 08/2022 Paroxysmal atrial fibrillation (2 hr episode noted on monitor 2018.Started on Eliquis. No further episodes noted) NSVT (1 episode August 2019 with negative MPI) AVB type I and II - noted on teletypesetter monitor during recent admission Hypertension, Hyperlipidemia (LDL 65 in 2021: She has been intolerant to multiple statins now on REPATHA) DM2 (A1C 7.1) CKD III Kidney stone 11/02 passed Duodenal ulcer and esophagitis with acute GIB admit to [facility] 11/11-11/14. D/C on Protonix. ?Parkinson's Disease SH Lives in [place] with spouse Has three grown children She [...] 1/4 needle ??? blood glucose meter by [facility] (non-drug; combo route) route [...] glucose scanning reader (FREESTYLE VICKY 2 READER) [facility] 1 Device by [facility] (non-drug; comboroute) route daily. [...] ??? lancets/blood glucose strips (ONE TOUCH COMBO [facility]) -to test blood sugar - twice daily [...] ??? Propoxyphene N-Acetaminophen Other reaction(s): Hallucinations ??? Msrvjhr-Hyk-Iot Reductase Inhibitors ??? Trulicity [Dulaglutide] Gi Side [...] dilation (TID) with a value of 1.4 [facility] 12/08/2022 CORONARY ARTERIES: The coronary circulation [...] 90% stenosis of RCA found on angiography. [facility] completed 12/08/22 with successful RCA stenting. -Tolerating Plavix. ASA discontinued while on Eliquis (hx of GIB due to esophagitis requiring transfusion) -Continue BB and Repatha -Hold Cardiac Rehab until she is symptomatically doing better 2. HCM severe asymmetric hypertrophy of LV with septal thickness 1.9 cm. Work up includes MCOT which she will start today. Awaiting MRI at [facility] 12/31. Spoke with Dr. Sebastian at [facility] who saw her in consultation. Referral sent to have him follow up with her as outpatient. Awaiting appointment. Low dose Metoprolol started while at [facility] -Dr. Sebastian with the [facility] [...] NP * Deepali Ovalles RN - 01/05/2023 1147 EDT See TE 01/06 Orders signed and faxed to [facility] infusion suite at [phone] weekly x three. * Sabrina Herring MA - 01/05/2023 114 EDT I called and spoke with Mirella at [facility] Cardiac rehab, she stated she would make a note to hold off on Cardiac rehab for now and await a call back from us when Joanna can resume. [phone] documented in this encounter Plan of Treatment Upcoming Encounters Date Type Department Care Team (Late st Contact Info) Description 03/08/2024 9:30 EDT Ancillary Procedure [facility] Cardiology - [address] [place] [address] 03/08/2024 10:15 EDT Ancillary Procedure [facility] Cardiology [address] [place] [address] 04/05/2024 10:00 EDT Ancillary Procedure [facility] Cardiology Clinic [address] [place] [address] 04/05/2024 10:00 EDT Office Visit [facility] Cardiology Clinic [address] [place], [place] [phone] Carlos Ha NP [address] [place] [address] [address] [place] [address] Scheduled Referrals Name Type Priority [...] 12-LEAD Routine 01/05/2023 11:55 EDT Ventricular tachycardia ([facility]) documented in this encounter Results * ECG REPORT - SCANNED (01/11/2023 8:04 EDT) 01/11/2023 8:04 EDT Scan 2 Supply Chain Assistant PROCEDURE/MINOR CROW GICAL ORDERABLES * (ABNORMAL) FERRITIN [...] BLOOD GA S ORDERABLES Performing Organization Address City/State/[facility] Co de Phone Number [facility] [address] [place] [address] * (ABNORMAL) TRANSFERRIN SATURATION (01/05/2023 13:19 EDT) [...] EDT 01/05/2023 13:48 EDT Carlos L Ha REGIONAL SALES COORDINATOR CHEMISTRY & BLOOD GA S ORDERABLES [facility] [address] [place] [address] * (ABNORMAL) COMPLETE BLOOD COUNT AND DIFFERENTIAL (01/05/2023 13:19 EDT) WBC 8.72 4.00 - 12.40 K/cmm 01/05/2023 14:03 [facility] RBC 3.93 3.86 - 5.04 M/cmm 01/05/2023 14:03 [facility] Hemoglobin 9.0(L) 11.6 - 15.2 g/dL 01/05/2023 14:03 [facility] HCT 31.1(L) 34.9 - 44.4 % 01/05/2023 14:03 [facility] MCV 79(L) 81 - 98 fL 01/05/2023 14:03 [facility] MCH 22.9(L) 26.7 - 33.3 pg 01/05/2023 14:03 [facility] Hypochromia 2+ 01/05/2023 14:03 [facility] MCHC 28.9(L) 32.1 - 35.9 g/dL 01/05/2023 14:03 [facility] RDW-CV 17.8(H) <14.7 % 01/05/2023 14:03 [facility] RDW-SD 51.2(H) <50.4 fl 01/05/2023 14:03 [facility] Anisocytosis 1+ 01/05/2023 14:03 [facility] PLT 557(H) 141 - 377 K/cmm 01/05/2023 14:03 [facility] MPV 10.1 9.5 - 12.7 fL 01/05/2023 14:03 [facility] % Neutrophils 54.1 % 01/05/2023 14:03 [facility] % Lymphocytes 26.0 % 01/05/2023 14:03 [facility] % Monocytes 7.1 % 01/05/2023 14:03 [facility] % Eosinophils 10.1 % 01/05/2023 14:03 [facility] % Basophils 2.4 % 01/05/2023 14:03 [facility] % Immature Grans 0.3 % 01/06/20 14:03 [facility] Absolute Neutrophils 4.71 2.20 - 8.85 K/cmm 01/05/2023 14:03 [facility] Absolute Lymphocytes 2.27 1.09 - 3.30 K/cmm 01/05/2023 14:03 [facility] Absolute Monocytes 0.62 0.10 - 0.80 K/cmm 01/05/2023 14:03 [facility] Absolute Eosinophils 0.88(H) 0.03 - 0.61 K/cmm 01/05/2023 14:03 [facility] ABS Basophils 0.21(H) 0.01 - 0.11 K/cmm 01/05/2023 14:03 [facility] Absolute Immature Grans 0.03 0.00 - 0.06 K/cmm 01/05/2023 14:03 [facility] Type of Differential: Auto 01/05/2023 14:03 [facility] Blood VENOUS BLOOD / Unknown Venipuncture / Unknown 01/05/2023 13:19 EDT 01/05/2023 13:58 EDT Carlos Ha REGIONAL SALES COORDINATOR PACKAGES & DNA PROBE ORDERABLES [facility] [address] [place] [address] * EKG 12-LEAD (01/05/2023 11:55 EDT) 01/05/2023 11:5 5 EDT Narrative [facility] - 01/09/2023 12:52 EDT ? CVC ? Test Date: ?2023-01-05 Pat Name: ? JOANNA GAUTAM ?Department: ? Room: ? Gender: ? Female ? Pack Mule Worker: ?? EP : ?1950 ? Requested By: AMIRAH Jimenez Order Number: [id number] ? Reading MD: ?? LING CAPPS MD ? Measurements Intervals ?[place] ? Rate: ? 71 ? P: ?-44 SD: ? 306 ?QRS: ?-25 QRSD: ? 126 [...] Name: JOANNA HART Department: Room: Gender: Female Pack Mule Worker: EP : 1950 Requested By: AMIRAH Jimenez Order Number: [id number] Reading MD: LING CAPPS MD Measurements Intervals [place] Rate: 71 P: -44 SD: 306 QRS: -25 QRSD: 126 T: 149 [...] Carlos Ha NP CARDIAC ECG ORDERABL ES [facility] documented in this encounter Visit Diagnoses [...] 01/05/2023 documented in this encounter Care Teams Insemination Worker Relationship Specialty Start Date End Date Bryant Crain MD [address] [place], [place] [phone] PCP - General 05/04/15 05/17/23 Carlos Ha NP [address] [place] [address] [address] [place] [phone] Consulting Clinician Cardiovascular Disease 09/14/21 documented as of this encounter
--- OUTSIDE RECORDS SUMMARY | 2024-01-12 11:20 | XMS_ITS | Encounter Summary ---
Author Organization [facility] Address [address] [place] [address] Care Team Providers Care Performance Improvement Specialist Name Role Phone Bryant Crain MD Primary Care Provider [phone] Carlos Ha ALUMINUM HYDROXIDE PROCESS OPERATOR Unavailable [phone] Reason for Visit * Laboratory Services (Routine/Next Available) - New Request Specialty Diagnoses / Procedures [facility] Referred To Contact Diagnoses NSTEMI (non-ST elevated myocardial infarction) (HCC-CMS) ASCVD (arteriosclerotic cardiovascular disease) Duodenal erosion Gastrointestinal hemorrhage, unspecified gastrointestinal hemorrhage type Procedures COMPLETE BLOOD COUNT Collette Park NP [address] [address] Referral ID Status Reason Start Date Expiration Date V isits Requested Visits Authorized [id number] New Request 12/09/2022 1 1 Encounter Details Date Type Department Care Team (Late st Contact Info) Description 01/05/2023 13:05 EDT Phlebotomy Only [facility] - Outpatient Phlebotomy Drawing [address] [place] [address] Lab, [facility] Op Phlebotomy NSTEMI (non-ST elevated myocardial infarction) [...] Description 03/08/2024 9:[address] [facility] Cardiology - [place] [address] [place] [address] 03/08/2024 10:[address] [facility] Cardiology - [place] [address] [place] [address] 04/05/2024 10:00 EDT Ancillary Procedure [facility] Cardiology Clinic [address] [place] [phone] 04/05/2024 10:00 EDT Office Visit [facility] Cardiology Clinic [address] [place] [address] Carlos Ha NP [address] [place] [address] [address] [place] [address] documented as of this encounter Procedures Procedure Name Priority Date/Time Associated Diagnosis Comments TRANSFERRIN SATURATION Routine 01/05/2023 13:19 EDT Blood loss anemia COMPLETE BLOOD COUNT AND DIFFERENTIAL Routine 01/05/2023 13:19 EDT Blood loss anemia FERRITIN Routine 01/05/2023 13:19 EDT Blood loss anemia documented in this encounter Results * (ABNORMAL) FERRITIN (01/05/2023 13:19 EDT) Ferritin 6(L) 11 - 264 ng/mL 01/05/2023 14:59 EDT [facility] Blood VENOUS BLOOD / Unknown Venipuncture / Unknown 01/05/2023 13:19 EDT 01/05/2023 13:48 EDT Narrative [facility] - 01/05/2023 14:59 EDT The results of this assay can be falsely lowered due to the consumption of Biotin. Carlos Ha NP CHEMISTRY & BLOOD GA S ORDERABLES [facility] [address] [place] [address] * (ABNORMAL) TRANSFERRIN SATURATION (01/05/2023 13:19 EDT) Iron 18(L) 37 - 170 ??g/dL 01/05/2023 14:29 EDT [facility] Iron Binding Capacity 431 240 - 450 ??g/dL 01/05/2023 14:29 EDT [facility] Transferrin Saturation 4(L) 15 - 45 % 01/05/2023 14:29 EDT [facility] Blood VENOUS BLOOD / Unknown Venipuncture / Unknown 01/05/2023 13:19 EDT 01/05/2023 13:48 EDT Carlos Ha NP CHEMISTRY & BLOOD GA S ORDERABLES [facility] [address] [place] [address] * (ABNORMAL) COMPLETE BLOOD COUNT AND DIFFERENTIAL (01/05/2023 13:19 EDT) WBC 8.72 4.00 - 12.40 K/cmm 01/05/2023 14:03 [facility] RBC 3.93 3.86 - 5.04 M/cmm 01/05/2023 14:03 [facility] Hemoglobin 9.0(L) 11.6 - 15.2 g/dL 01/05/2023 14:03 [facility] HCT 31.1(L) 34.9 - 44.4 % 01/05/2023 14:03 [facility] MCV 79(L) 81 - 98 fL 01/05/2023 14:03 [facility] MCH 22.9(L) 26.7 - 33.3 pg 01/05/2023 14:03 [facility] Hypochromia 2+ 01/05/2023 14:03 [facility] MCHC 28.9(L) 32.1 - 35.9 g/dL 01/05/2023 14:03 [facility] RDW-CV 17.8(H) <14.7 % 01/05/2023 14:03 [facility] RDW-SD 51.2(H) <50.4 fl 01/05/2023 14:03 [facility] Anisocytosis 1+ 01/05/2023 14:03 [facility] PLT 557(H) 141 - 377 K/cmm 01/05/2023 14:03 [facility] MPV 10.1 9.5 - 12.7 fL 01/05/2023 14:03 [facility] % Neutrophils 54.1 % 01/05/2023 14:03 [facility] % Lymphocytes 26.0 % 01/05/2023 14:03 [facility] % Monocytes 7.1 % 01/05/2023 14:03 [facility] % Eosinophils 10.1 % 01/05/2023 14:03 [facility] % Basophils 2.4 % 01/05/2023 14:03 [facility] % Immature Grans 0.3 % 01/06/20 14:03 [facility] Absolute Neutrophils 4.71 2.20 - 8.85 K/cmm 01/05/2023 14:03 [facility] Absolute Lymphocytes 2.27 1.09 - 3.30 K/cmm 01/05/2023 14:03 [facility] Absolute Monocytes 0.62 0.10 - 0.80 K/cmm 01/05/2023 14:03 [facility] Absolute Eosinophils 0.88(H) 0.03 - 0.61 K/cmm 01/05/2023 14:03 [facility] ABS Basophils 0.21(H) 0.01 - 0.11 K/cmm 01/05/2023 14:03 [facility] Absolute Immature Grans 0.03 0.00 - 0.06 K/cmm 01/05/2023 14:03 [facility] Type of Differential: Auto 01/05/2023 14:03 [facility] Blood VENOUS BLOOD / Unknown Venipuncture / Unknown 01/05/2023 13:19 EDT 01/05/2023 13:58 EDT Carlos Ha NP PACKAGES & DNA PROBE ORDERABLES [facility] [address] [place] [address] documented in this encounter Visit Diagnoses Diagnosis NSTEMI (non-ST elevated myocardial infarction) ([facility]) Acute myocardial infarction, subendocardial infarction, episode of care unspecified ASCVD (arteriosclerotic cardiovascular disease) Unspecified cardiovascular disease Duodenal erosion Duodenal ulcer, unspecified as acute or chronic, without hemorrhage, perforation, or obstruction Gastrointestinal hemorrhage, unspecified gastrointestinal hemorrhage type Blood loss anemia Iron deficiency anemia secondary to blood loss (chronic) documented in this encounter Care Teams Performance Improvement Specialist Relationship Specialty Start Date End Date Bryant Crain MD [address] [place], [place] [phone] PCP - General 05/04/15 05/17/23 Carlos Ha NP [address] [place] [address] [address] [place] [address] Consulting Clinician Cardiovascular Disease 09/14/21 documented as of this encounter
--- OUTSIDE RECORDS SUMMARY | 2024-01-12 11:20 | XMS_ITS | Encounter Summary ---
Author Organization [facility] Address [address] [place] [address] Care Team Providers Care Nurse Consultant Name Role Phone Bryant Crain MD Primary Care Provider [phone] Carlos Ha RESISTANCE WELDER Unavailable [phone] Reason for Visit * Reason Onset Date Comments Pharmacy 01/06/2023 Iron Infusion at [facility] Encounter Details Date Type Department Care Team (Late st Contact Info) Description 01/06/2023 Orders Only [facility] Cardiology Clinic [address] [place] [address] Suleman Ovalles, JALEN Social History Tobacco [...] will be done in outpatient clinic at [facility] 100 mL 01/06/2023 01/21/2023 documented in this encounter Progress Notes * Suleman Ovalles RN - 01/06/202323 EDT Carlos Ha, RESISTANCE WELDER sent to Suleman Ovalles RN I want to order Venofer 200 mg IV weekly for three weeks (3 infusions total) to be done at [facility]. Thanks, Carlos Spoke with Petra at [facility] Infusion clinic. Orders sent for Venofer 200mg IV weekly x 3 via fax [phone] documented in this encounter Miscellaneous Notes * Addendum Note - Suleman Ovalles RN - 01/06/2023 0823 EDTAddended by: SULEMAN OVALLES on: 01/06/2023 08:58 Modules accepted: Orders documented in this encounter Plan of Treatment Upcoming Encounters Date Type Department Care Team (Late st Contact Info) Description 03/08/2024 9:30 EDT Ancillary Procedure [facility] Cardiology - [address] [place] [address] 03/08/2024 10:15 EDT Ancillary Procedure [facility] Cardiology - [address] [place] [address] 04/05/2024 10:00 EDT Ancillary Procedure [facility] Cardiology Clinic [address] [place] [address] 04/05/2024 10:00 EDT Office Visit [facility] Cardiology Clinic [address] [place] [address] Carlos Ha NP [address] [place] [phone] documented as of this encounter Visit Diagnoses Not on filedocumented in this encounter Care Teams Nurse Consultant Relationship Specialty Start Date End Date Bryant Crain MD [address] [place], [place] [phone] PCP - General 05/04/15 05/17/23 Carlos Ha NP [address] [place] [phone] Consulting Clinician Cardiovascular Disease 09/14/21 documented as of this encounter
--- OUTSIDE RECORDS SUMMARY | 2024-01-12 11:20 | XMS_ITS | Encounter Summary ---
Author Organization [facility] Address [address] [place] [address] Care Team Providers Care Picking Crew Supervisor Name Role Phone Bryant Crain MD Primary Care Provider [phone] Carlos Ha GALLERY ASSISTANT Unavailable Reason for Visit * Reason Onset Date Comments Appointment Related 01/26/2023 Encounter Details Date Type Department Care Team (Late st Contact Info) Description 01/26/[address] [facility] Cardiology - [address] [place] [address] Randy Sebastian MD [address] [place] [phone] Appointment Related Social History Tobacco Use [...] Description 03/08/2024 9:[address] [facility] Cardiology - [facility] [place] [address] 03/08/2024 10:[address] [facility] Cardiology [facility] [place] [address] 04/05/2024 10:00 EDT Ancillary Procedure [facility] [address] [place] [id number] 04/05/2024 10:00 EDT Office Visit [facility] [address] [place] [phone] Carlos Ha, RAHEEM [address] [place] [address] [address] [place] [phone] documented as of this encounter Visit Diagnoses Not on filedocumented in this encounter Care Teams Picking Crew Supervisor Relationship Specialty Start Date End Date Bryant Crain MD [address] [place] [address] PCP - General 05/04/15 05/17/23 Carlos Ha NP [address] [place] [address] [address] [place] [address] Consulting Clinician Cardiovascular Disease 09/14/21 documented as of this encounter
--- OUTSIDE RECORDS SUMMARY | 2024-01-12 11:20 | XMS_ITS | Encounter Summary ---
Author Organization [facility] Address [address] [place] [address] Care Team Providers Care Medicine Tech Name Role Phone Bryant Crain MD Primary Care Provider [phone] Carlos Ha PHOTORESIST CONTACT PRINTER Unavailable [phone] Reason for Visit * Reason Comments Heart Problem * Consult (Routine/Next Available) - Authorization Not Required Specialty Diagnoses / Procedures [facility] Referred To Contact Cardiology Diagnoses Hypertrophic cardiomyopathy (HCC-CMS) Randy Sebastian MD [address] [place] [address] [facility] [place] [address] Referral ID Status Reason Start Date Expiration Date Visits Requested Visits Authorized [id number] Authorization Not Required Specialty Services Required 01/27/2023 1 1 Encounter Details Date Type Department Care Team (Late st Contact Info) Description 02/16/2023 10:20 EDT Office Visit [facility] - [place] [address] [place] [address] Lefty Moss MD [address] [facility] 1 [place] [address] Hypertrophic cardiomyopathy (HCC-CMS) (Primary Dx); [...] orders for this visit: Hypertrophic cardiomyopathy (HCC-CMS) ([facility]) - CASE REQUEST EP LAB - CASE REQUEST EP LAB PAF (paroxysmal atrial fibrillation) (HCC-CMS) ([facility]) - CASE REQUEST EP LAB - [...] stenosis 06/01/2019 ??? Paroxysmal atrial fibrillation (HCC-CMS) ([facility]) 06/01/2019 No past surgical history on file. [...] ??? Propoxyphene N-Acetaminophen Other reaction(s): Hallucinations ??? Bpihudg-Uld-Lhw Reductase Inhibitors ??? Trulicity [Dulaglutide] Gi Side [...] EDT Ancillary Procedure [facility] - [place] [address] [place] [address] 03/08/2024 10:15 EDT Ancillary Procedure [facility] - [facility] [address] [place], [place] [phone] 04/05/2024 10:00 EDT Ancillary Procedure [facility] [address] [place] [id number] 04/05/2024 10:00 EDT Office Visit [facility] [address] [place] [address] Carlos Ha NP [address] [place] [phone] documented as of this encounter Visit Diagnoses Diagnosis Hypertrophic cardiomyopathy (HCC-CMS)- Primary Other hypertrophic cardiomyopathy PAF (paroxysmal atrial fibrillation) (HCC-CMS) Atrial fibrillation documented in this encounter Orders Case Request Count Last Ordered Date First Orde red Date CASE REQUEST EP LAB 1 02/16/2023 documented in this encounter Care Teams Medicine Tech Relationship Specialty Start Date End Date Bryant Crain MD [address] [place], [place] [phone] PCP - General 05/04/15 05/17/23 Carlos Ha NP [address] [place] [address] [phone] Consulting Clinician Cardiovascular Disease 09/14/21 documented as of this encounter
--- OUTSIDE RECORDS SUMMARY | 2024-01-12 11:20 | XMS_ITS | Encounter Summary ---
Author Organization [facility] Address [address] [place] [address] Care Team Providers Care Speck Dyer Name Role Phone Bryant Crain MD Primary Care Provider Carlos Ha AVIATION SAFETY OFFICER Unavailable [phone] Elba Jett MD Primary Care Provider [phone] Reason for Visit * Reason Onset Date Comments Appointment Related 02/09/2023 Encounter Details Date Type Department Care Team (Late st Contact Info) Description 02/09/2023 Telephone [facility] - [address] [place] [address] Randy Sebastian MD [address] [place] [phone] Appointment Related Social History Tobacco Use [...] Info) Description 03/08/2024 9:30 EDT Ancillary Procedure [facility] Cardiology - [facility] [address] [place], [place] [phone] 03/08/2024 10:15 EDT Ancillary Procedure [facility]iology - [facility] [place] [address] 04/05/2024 10:00 EDT Ancillary Procedure [facility] [address] [place] [address] 04/05/2024 10:00 EDT Office Visit [facility] [address] [place] [address] Carlos Ha NP [address] [place] [address] [place] [address] documented as of this encounter Visit Diagnoses Not on filedocumented in this encounter Care Teams Speck Dyer Relationship Specialty Start Date End Date Bryant Crain MD [address] [place], [place] [phone] PCP - General 05/04/15 05/17/23 Elba Jett MD [facility] [place] [phone] PCP - General Family Medicine - Primary Care 05/18/23 Carlos Ha NP [address] [place] [phone] Consulting Clinician Cardiovascular Disease 09/14/21 documented as of this encounter
--- OUTSIDE RECORDS SUMMARY | 2024-01-12 11:20 | XMS_ITS | Encounter Summary ---
Author Organization [facility] Address [address] [place] [address] Care Team Providers Care Instructional Design Manager Name Role Phone Bryant Crain MD Primary Care Provider [phone] Carlos Ha THEATRICAL DRESSER Unavailable [phone] Reason for Visit * Reason Onset Date Comments Hospital Discharge Follow Up 12/11/2022 Encounter Details Date Type Department Care Team (Late st Contact Info) Description 12/11/2022 Telephone [facility] [place] [facility] Inpatient Pharmacy - [facility] [address] [place] [address] Roger Vizcarra [facility] Hospital Discharge Follow Up Social History Tobacco [...] Notes * Telephone Encounter - Zackery Roger, [facility] - 12/11/2022 1406 EDT Images from the original note were [...] daily. Quantity: 30 Tablet FreeStyle Lo 2 Plover misc Refills: 0 Generic drug: flash glucose [...] 1/4 needle Refills: 0 Generic drug: Insulin Zapata (Disposable) * This list has 2 medication(s) [...] Office Visit Medium with Carlos Ha NP [facility] (--) [address] [facility] [address] Patient has understanding of their appointments. 10) [...] Info) Description 03/08/2024 9:30 EDT Ancillary Procedure [facility] [place] [facility] Cardiology [address] [place], [place] [phone] 03/08/2024 10:15 EDT Ancillary Procedure [facility] [place] [facility] Cardiology [address] [place], [place] [phone] 04/05/2024 10:00 EDT Ancillary Procedure [facility] [address] [place] [phone] 04/05/2024 10:00 EDT Office Visit [facility] [address] [place] [phone] Carlos Ha NP [address] [phone] documented as of this encounter Visit Diagnoses Not on filedocumented in this encounter Care Teams Instructional Design Manager Relationship Specialty Start Date End Date Bryant Crain MD [address] [place], [place] [phone] PCP - General 05/04/15 05/17/23 Carlos Ha NP [address] [place] [address] [phone] Consulting Clinician Cardiovascular Disease 09/14/21 documented as of this encounter
--- OUTSIDE RECORDS SUMMARY | 2024-01-12 11:20 | XMS_ITS | Encounter Summary ---
Author Organization [facility] Address [address] [place] [address] Care Team Providers Care Tooth Cutter Name Role Phone Bryant Crain MD Primary Care Provider [phone] Carlos Ha WAREHOUSE ASSOCIATE Unavailable [phone] Reason for Referral * Consult (Routine/Next Available) - Authorization Not Required Specialty Diagnoses / Procedures Referred By Charo t Referred To Contact Cardiology Diagnoses Hypertrophic cardiomyopathy ([facility]-CMS) Randy Sebastian MD [address] [place] [phone] [facility] Cardiology [address] [place] [address] [place] [address] Referral ID Status Reason Start Date Expiration Date Visits Requested Visits Authorized [id number] Authorization Not Required Specialty Services Required 01/27/2023 1 1 Question Answer Reason for Request: ICD implant consideration in the setting of hypertrophic cardiomyopathy * Cardiology (Routine/Next Available) - New Request Specialty Diagnoses / Procedures Referred By Contac t Referred To Contact Diagnoses Hypertrophic cardiomyopathy (HCC-CMS) Procedures EKG 12-LEAD Randy Sebastian MD [address] [place] [phone] Referral ID Status Reason Start Date Expiration Date V isits Requested Visits Authorized [id number] New Request 01/27/2023 1 1 Reason for [...] hypertension Mixed hyperlipidemia Carlos Ha, RAHEEM [address] [facility] [address] [place] [address] Randy Sebastian MD [address] [place] [address] Referral ID Status Reason Start Date Expiration Date Visits Requested Visits Authorized [id number] Specialty Report Received Specialty Services Required 01/05/2023 1 1 Encounter Details Date Type Department Care Team (Latest Contact Info) Description 01/27/2023 9:30 EDT Office Visit [facility] Cardiology - [address] [place], [place] [phone] Randy Sebastian MD [address] [place] [phone] (HFpEF) heart failure with preserved ejection [...] Randy Sebastian MD - 01/27/2023 0930 EDT [facility] Division of Cardiology- Advanced Heart [...] offsprings and siblings. Will Send for the [place] Genetic test and discussed based on results. [...] Randy Sebastian MD Advanced HF and Transplant [facility] [employer] 01/27/2023 9:51 Medications Prior to Today's Visit Medication Sig ??? acetaminophen (TYLENOL) 650 mg CR tablet 2 tab(s) orally twice a day, only as needed ??? apixaban (ELIQUIS) 5 mg tablet Take 1 Tablet by mouth 2 times daily. ??? BD ULTRA-FINE MICRO PEN NEEDLE 32 gauge x 1/4 needle ??? blood glucose meter by [facility] (non-drug; combo route) route daily. One touch [...] mouth daily. ??? flash glucose scanning reader (Integrity TrackingSTYLE VICKY 2 READER) [facility] 1 Device by [facility] (non-drug; comboroute) route daily. Dispense one reader [...] ??? lancets/blood glucose strips (ONE TOUCH [facility]) -to test blood sugar [...] from base to apex. The distal apex ([id number]) is concentrically involved by delayed enhancement. Left [...] 03/08/2024 9:30 EDT Ancillary Procedure [facility] [place] [address] 03/08/2024 10:15 EDT Ancillary Procedure [facility] [place] [address] 04/05/2024 10:00 EDT Ancillary Procedure [facility] [address] [place] [address] 04/05/2024 10:00 EDT Office Visit [facility] [address] [place] [address] Carlos Ha, WAREHOUSE ASSOCIATE [address] [facility] [address] [place] [address] Scheduled Referrals Name Type Priority [...] EDT) 02/02/2023 16:5 8 EDT [address] [employer] PROCEDURE/MINOR CROW GICAL ORDERABLES * (ABNORMAL) COMPLETE BLOOD COUNT (01/27/2023 16:59 EDT) WBC 7.97 4.00 - 12.40 K/cmm 01/27/2023 17:09 [facility] RBC 4.49 3.86 - 5.04 M/cmm 01/27/2023 17:09 [facility] Hemoglobin 10.5(L) 11.6 - 15.2 g/dL 01/27/2023 17:09 [facility] HCT 36.1 34.9 - 44.4 % 01/27/2023 17:09 [facility] MCV 80(L) 81 - 98 fL 01/27/2023 17:09 [facility] MCH 23.4(L) 26.7 - 33.3 pg 01/27/2023 17:09 [facility] Hypochromia 1+ 01/27/2023 17:09 [facility] MCHC 29.1(L) 32.1 - 35.9 g/dL 01/27/2023 17:09 [facility] RDW-CV 23.9(H) <14.7 % 01/27/2023 17:09 [facility] RDW-SD 68.2(H) <50.4 fl 01/27/2023 17:09 [facility] Anisocytosis 2+ 01/27/2023 17:09 [facility] PLT 419(H) 141 - 377 K/cmm 01/27/2023 17:09 [facility] MPV 10.3 9.5 - 12.7 fL 01/27/2023 17:09 [facility] Blood VENOUS BLOOD / Unknown Venipuncture / Unknown 01/27/2023 16:59 EDT 01/27/2023 17:05 EDT Randy Sebastian MD HEMATOLOGY & PF4 ORD ERABLES [facility] [address] [place] [address] * (ABNORMAL) BASIC METABOLIC PANEL (BMP) (01/27/2023 16:59 EDT) Sodium 138 136 - 145 mmol/L 01/27/2023 17:39 [facility] Potassium 4.6 3.5 - 5.0 mmol/L 01/27/2023 17:39 [facility] Chloride 106 96 - 110 mmol/L 01/27/2023 17:39 [facility] CO2 Total 22 22 - 32 mmol/L 01/27/2023 17:39 [facility] Anion Gap 10 5 - 14 mmol/L 01/27/2023 17:39 [facility] Glucose 222(H) 70 - 99 mg/dl 01/27/2023 17:39 [facility] Calcium 10.8(H) 8.5 - 10.5 mg/dL 01/27/2023 17:39 [facility] BUN 22 10 - 26 mg/dL 01/27/2023 17:39 EDT [facility] Creatinine 1.11(H) 0.52 - 1.04 mg/dL 01/27/2023 17:39 EDT [facility] eGFR 53(L) >60 mL/min/1.73 m2 01/27/2023 17:39 EDT [facility] Blood VENOUS BLOOD / Unknown Venipuncture / Unknown 01/27/2023 16:59 EDT 01/27/2023 17:09 EDT Randy Sebastian MD CHEMISTRY & BLOOD GA S ORDERABLES Performing Organization Address [facility] de Phone Number [facility] [address] [place] [address] * (ABNORMAL) NT PRO BNP (01/27/2023 16:59 EDT) NT-pro BNP 1,360(H) <221 pg/mL 01/27/2023 17:53 EDT [facility] Comment: In the acute setting NT-proBNP values <300 pg/mL have a 98% NPV for excluding acute heart failure. In outpatient populations, NT-proBNP values <125 have a 99% NPV for excluding heart failure. Blood VENOUS BLOOD / Unknown Venipuncture / Unknown 01/27/2023 16:59 EDT 01/27/2023 17:09 EDT Randy Sebastian MD CHEMISTRY & BLOOD GA S ORDERABLES Performing Organization Address [facility] Co de Phone Number [facility] [address] [place] [address] * EKG 12-LEAD (01/27/2023 10:07 EDT) 01/27/2023 10:0 7 EDT Narrative [facility] EKG - 02/02/2023 16:51 EDT ? [facility] ? Test Date: ?2023-01-27 Pat Name: ? JOANNA GAUTAM ?Department: ?? [place] [facility] ? Room: ? Gender: ? Female ? Care Mgr: ?? [id number] : ?1950 ? Requested By: ASIA WALTON A Order Number: [id number] ? Reading MD: ?? YASH CHAVEZ MD ? Measurements Intervals ?[place] ? Rate: ? 42 ? P: ?-59 OK: ? 280 ?QRS: ?-29 QRSD: ? 118 [...] Note Yash Chavez MD - 02/02/2023 [facility] Test Date: 2023-01-27 Pat Name: JOANNA HART Department: [facility] Room: Gender: Female Care Mgr: [id number] : 1950 Requested By: ASIA Ovalles Order Number: [id number] Reading MD: YASH CHAVEZ MD Measurements Intervals [place] Rate: 42 P: -59 OK: 280 QRS: -29 QRSD: 118 T: 156 [...] Randy Sebastian MD CARDIAC ECG ORDERABL ES [facility] EKG documented in this encounter Visit Diagnoses Diagnosis (HFpEF) heart failure with preserved ejection fraction (HCC-CMS)- Primary Heart failure, unspecified Hypertrophic cardiomyopathy (HCC-CMS) Other hypertrophic cardiomyopathy Iron deficiency anemia Iron deficiency anemia, unspecified documented in this encounter Care Teams Tooth Cutter Relationship Specialty Start Date End Date Bryant Crain MD [address] [place], [place] [phone] PCP - General 05/04/15 05/17/23 Carlos Ha NP [address] [place] [address] [address] [place] [address] Consulting Clinician Cardiovascular Disease 09/14/21 documented as of this encounter
--- OUTSIDE RECORDS SUMMARY | 2024-01-12 11:20 | XMS_ITS | Encounter Summary ---
Author Organization Health system Address [address] [place] [address] Care Team Providers Care Lean Specialist Name Role Phone Bryant Crain MD Primary Care Provider [phone] Carlos Ha DONATION WORKER Unavailable [phone] Reason for Referral * Laboratory Services (Routine/Next Available) - New Request Specialty Diagnoses / Procedures Referred By Charo daniel Referred To Contact Diagnoses NSTEMI (non-ST elevated myocardial infarction) (HCC-CMS) ASCVD (arteriosclerotic cardiovascular disease) Duodenal erosion Gastrointestinal hemorrhage, unspecified gastrointestinal hemorrhage type Procedures COMPLETE BLOOD COUNT Collette Park NP 62 [facility] [address] [place] [phone] Referral ID Status Reason Start Date Expiration Date V isits Requested Visits Authorized [id number] New Request 12/09/2022 1 1 * Consult (Routine/Next Available) - New Request Specialty Diagnoses / Procedures Referred By Charo daniel Referred To Contact Cardiac Rehabilitation Diagnoses NSTEMI (non-ST elevated myocardial infarction) (HCC-CMS) Collette Park NP 62 [facility] [address] [place] [phone] [facility] Cardiology [address] [place] [address] Referral ID Status Reason Start Date Expiration Date Visits Requested Visits Authorized [id number] New Request Specialty Services Required 12/08/2022 1 1 Question Answer Reason for Request: s/p PCI * (Routine/Next Available) Specialty Diagnoses / Procedures Referred By Charo daniel Referred To Contact Collette Park NP [address] [phone] Referral ID Status Reason Start Date Expiration Date V isits Requested Visits Authorized Specialty Services Required Comments Your local cardiac rehab program will contact you and/or your geriatric psychiatrist to discuss. * Follow Up (Routine/Next Available) - New Request Specialty Diagnoses / Procedures Referred By Charo daniel Referred To Contact Diagnoses NSTEMI (non-ST elevated myocardial infarction) ([facility]-CMS) Collette Park NP [address] [phone] Bryant Crain MD [address] [place] [id number] Referral ID Status Reason Start Date Expiration Date Visits Requested Visits Authorized [id number] New Request Continuity of Care 12/08/2022 1 1 Question Answer Reason for Request: s/p PCI * Follow Up (Routine/Next Available) - Denied Specialty Diagnoses / Procedures Referred By Contloreto t Referred To Contact Cardiology Diagnoses NSTEMI (non-ST elevated myocardial infarction) (HCC-CMS) Collette Park NP [address] [phone] Carlos Ha NP 130 [facility] [address] [place] [address] Referral ID Status Reason Start Date Expiration Date V isits Requested Visits Authorized [id number] Denied Specialty Services Required 12/08/2022 1 0 Question Answer Reason for Request: s/p PCI Reason for Visit * Auth/Cert (Routine) Specialty Diagnoses / Procedures Referred By Contac t Referred To Contact Diagnoses NSTEMI (non-ST elevated myocardial infarction) (HCC-CMS) NSTEMI, rising troponin Referral ID Status Reason Start Date Expiration Date Visits Re quested Visits Authorized [id number] 1 1 Encounter Details Date Type Department Care Team (Late st Contact Info) Description 12/03/2022 22:09 EDT - 12/09/2022 14:30 EDT Hospital Encounter [facility]iac Unit [address] [place] [address] Randy Sebastian MD [address] [place] [phone] Von Walters MD 111 [facility], Level [address] [place] [phone] Gita Westbrook MD 214 [facility] [address] [place] [phone] ASCVD (arteriosclerotic cardiovascular disease) (Primary Dx); NSTEMI [...] Resolved ??? NSTEMI (non-ST elevated myocardial infarction) ([facility]) ([facility]) 12/07/2022 Principal Procedure: Heart cath and Percutaneous coronary intervention Date: 12/08/2022 Access: Right radial artery ?? Procedure: She was brought to [facility] for the procedure: [...] from base to apex. The distal apex ([id number]) is concentrically involved by delayed enhancement. Left [...] Disease presenting as a direct transfer from [facility] where she presented on 12/01 due to shortness of breath, and chest tightness that woke her up from her sleep 3- 4 days prior. At [facility] she was diuresed with IV lasix BID, however trop was still dynamic, requiring a transfer for an ischemic evaluation. At [facility] she underwent a NM PET scan which showed reversible ischemia and she was therefore taken to the bean sprout laborer for further evaluation and treatment. Patient had heart cath and stenting as above. Patient did well overnight and was free of arrhythmias on telemetry. Echo done, EF 60-65% with diastolic dysfunction and septal asymmetric hypertrophy which is chronic for her. Patient was restarted on RU[employer]ION FOOTBALLER GDMT as well as new to her jardiance, losartan and spironolactone, tolerating well. Advise following up with OP provider to titrate GDMT as clinically indicated. Of note, patient had a few episodes of asymptomatic AV lilly dysfunction, EP consulted and after reviewing her ECGs and tele, recommend safe discharge on RU[employer]ION FOOTBALLER metop 12.5mg daily, restarted during this admission [...] was requested with PCP and Carlos Ha DONATION WORKER. Pt was also referred for cardiac rehab evaluation at [facility]. Of note, PLT noted to be [...] ??? Propoxyphene N-Acetaminophen Other reaction(s): Hallucinations ??? Yzkmshp-Gsf-Vfn Reductase Inhibitors ??? Trulicity [Dulaglutide] Gi Side [...] 11/11/2022 Discharge Follow Up Appointments Scheduled with [facility] Appointments Outside of [facility] We Will Schedule Follow-up appointments and procedures [facility] Cardiac Rehabilitation Referral Your local cardiac rehab program will contact you and/or your geriatric psychiatrist to discuss. Authorizing Provider: Collette Coker NP [...] for 7 days. blood glucose meter by [facility] (non-drug; combo route) route daily. One touch verio meter or best covered by insurance. cetirizine 10 mg tablet Commonly known as: ZYRTEC Cholecalciferol (Vitamin D3) 10 mcg (400 unit) tablet cyanocobalamin 500 mcg tablet Commonly known as: VITAMIN B-[address] [facility] Generic drug: flash glucose scanning reader 1 Device by [facility] (non-drug; [...] Tablets by mouth daily. ONE TOUCH COMBO [facility] OneTouch Ultra Blue Test Strip test strips [...] gauge x 1/4 needle Generic drug: Insulin Franklin (Disposable) * This list has 2 medication(s) that are the same as other medications prescribed for you. Read thedirections carefully, and ask your doctor or other care provider to review them with you. Where to Get Your Medications These medications were sent to [facility] - [address] [address] ?? aspirin 81 mg EC tablet ?? [...] up with your primary care provider or geriatric psychiatrist. * Discharge Instr - DME* Zandra Monge [...] hyperglycemia, with long-term current use of insulin ([facility]) by [facility] (non-drug; [...] scanning reader (FREESTYLE VICKY 2 READER) [facility] 1 Device by [facility] (non-drug; [...] 01/18/2020 lancets/blood glucose strips (ONE TOUCH COMBO CREEK [...] 1 Tablet by mouth 2 times daily. PlannifyTOUCH ULTRA BLUE TEST STRIP test strips TEST [...] - 12/08/2022 1442 EDT Spiritual Care Department Wash Oil Pump Operator Note Re: Fortunato Hart : 1950 Room: /[facility] Service: Cardiology Restorationism: Baptism Fortunato has received a visit from the Spiritual Care Department on 12/08/2022. Assessment/Comments: I responded to Fortunato's request for the Sacrament before her procedure. Met with her and her spouse, Kenneth at bedside. They were both receptive and engaged this Wash Oil Pump Operator. I explored with Frotunato, her hospitalization, treatment and emotional feeling. Fortunato [...] Care Welcomed End of Life Patient Is Protestant Importance Moderately Important Current Support System Spouse/Significant Other, Family/Friends Level of Support Strong Support ENCOUNTER DATA Date of Encounter 12/08/22 Time of Encounter 1145 Reason for Encounter Referral Referred by Wash Oil Pump Operator Care Level 4 - Significant Patient Concerns Reason not visited ENCOUNTER Needs Addressed Wash Oil Pump Operator Support, Fear/Anxiety, Sacraments Interventions Assessed and Affirmed Strengths, Build Relationship, Prayer, Sacraments Sacraments Provided Anointed Date of Anointing 12/08/22 Communion Date of Communion Date of Evangelical OUTCOME Outcome Stress Level Reduced Stress Outcome of Encounter Patient Satisfied, Needs Met CARE PLAN Plan Patient/Family will Call if Needed Consult With Additional Support Was Clergy Needed? Yes, provided, Scheduler TIME STAMP: Total time spent 20 minutes in direct floor time; >50% of time was spent in spiritual care. RAMONA INGRAM 12/08/2022 14:42 * Kaila Dotson - 12/08/2022 0931 EDT Spiritual Care Department Wash Oil Pump Operator Note Re: Fortunato Hart : 1950 Room: [id number] Service: Cardiology Restorationism: Baptism Fortunato has received a visit from the Spiritual Care Department on 12/08/2022. Assessment/Comments: Fortunato and Kenneth (of forty-five years!) welcome ignition specialist sports internship. Both appear to be coping well with humor, family texting, and going through word puzzles together, though Fortunato shares that 'I'm a little anxious' about the waiting - 'I'd just like to get the heck on out of here.' Wash Oil Pump Operator sports internship affirms the understandable anxiety and frustration of uncertainty. Per Fortunato, her Baptism charly provides further meaning. She would like sacramental support from a Baptism ignition specialist when possible. Wash Oil Pump Operator sports internship will reach out to Father Ramona, unit staff ignition specialist. DEMOGRAPHICS Spiritual Care Welcomed Patient Is Protestant Importance Moderately Important Current Support System Spouse/Significant Other, Family/Friends Level of Support Strong Support ENCOUNTER DATA Date of Encounter 12/08/22 Time of Encounter 0910 Reason for Encounter Initial Visit Care Level 3 - Some Matter of Substance ENCOUNTER Needs Addressed Wash Oil Pump Operator Support, Family Support, Fear/Anxiety, Frustration, Gratitude, Prayer Support Interventions Assessed and Affirmed Strengths, Assessed Spiritual/Protestant Needs, Build Relationship, Explored Spiritual/Relgious/Social Supports, Family Support, Prayer OUTCOME Outcome Stress Level Reduced Stress Outcome of Encounter Continues to Process Issue, Family Supported CARE PLAN Plan Continued Wash Oil Pump Operator Support Was Clergy Needed? Yes, unavailable, Scheduler TIME STAMP: Total time spent 10 minutes [...] present. Medications Reviewed: Changes notable for holding [employer]ER metoprolol due to long QTc Labs Reviewed: [...] of diffuse obstructive coronary disease, plan for [facility]. N-STEMI: HLD HTN Symptomatic, troponin peaked [...] - Hx of statin intolerance, on Repatha [employer]OTB[employer]ER - LHC today - cont losartan 25 mg ?? Hypertrophic Cardiomyopathy -Cardiac MRI w/ velocity map: severe concentric hypertrophy with EF 60%, distal portion of LV completely obliterates in systole, no abnormal mitral valve motion or LVOT obstruction, aortic stenosis - Daily Mg - cont RU[employer]ER Metoprolol tartrate 12.5 mg BID ?? Acute on chronic HFpEF Exacerbation: P/w e/o mild fluid overload consistent with HF exacerbation. Last TTE with EF 60-65% with findings consistent with diastolic dysfunction. BNP in ED at [facility] 3200. Has been euvolemic - start spironolactone [...] - SSI - Lantus 20 U daily (RU[employer]OTB[employer]ER dose is 31) - Aspart 7 U TID ACHS - Hold [employer]ER Metformin - losartan 25 mg as above 1st deg AV delay VTE Prophylaxis Pharmacologic Prophylaxis: Heparin gtt Discharge Plan Home or self care Greer Hooks MD PGY-3 #[id number] 12/08/22 7:22 Associated attestation - Von Walters MD - 12/08/2022 150 EDT Attending Attestation: I have personally seen and examined Fortunato Hart , discussed the patient's management with the team, and agree with the findings and plan as outlined by Dr. Hooks. In addition, [facility] today revealed RCA stenosis concordant with the perfusion abnormality seen on PET, now s/pPCI. Von Walters MD * Greer Hooks MD - 12/07/2022 5680 EDT Cardiology Progress note Service Date: 12/07/2022 [...] present. Medications Reviewed: Changes notable for holding [employer]ER metoprolol due to long QTc Labs Reviewed: [...] Possible troponin leak 2/2 true type 1 AR vs HCM. -Eliquis taken earlier (12/03) - Telemetry class I - aspirin 81mg daily - Heparin gtt - Nitro 0.4mg SL q5min prn - Hx of statin intolerance, on Repatha [employer]ER - supplemental O2 if needed - NM-PET [...] with EF 60-65%. BNP in ED at [facility] 3200 - RU[employer]BALLER GDMT ??? Metoprolol tartrate 12.5 mg BID [...] - SSI - Lantus 20 U daily ([employer]ER dose is 31) - Aspart 7 U TID ACHS - Hold [employer]ER Metformin 1st deg AV delay VTE Prophylaxis [...] Walters MD * Elsie Otoole - 12/06/2022 3827 EDT Cardiology Progress note Service Date: 12/06/2022 [...] present. Medications Reviewed: Changes notable for holding [employer]ER metoprolol due to long QTc Labs Reviewed: [...] - Hx of statin intolerance, on Repatha [employer]ER - supplemental O2 if needed - potential [...] with EF 60-65%. BNP in ED at [facility] 3200 - RU[employer]ER GDMT ??? Metoprolol tartrate 12.5 mg BID [...] diet - SSI - Lantus 20 U daily([employer] FOOTBALLER dose is 31) - Aspart 7 U TID ACHS - Hold [employer]ER Metformin 1st deg AV delay VTE Prophylaxis Pharmacologic Prophylaxis: Heparin gtt Discharge Plan Home or self care Elsie Otoole MD Internal Medicine PGY-1 Pager #[phone] ELSIE OTOOLE 12/06/2022 14:47 Associated attestation - [...] present. Medications Reviewed: Changes notable for holding [employer]ER metoprolol due to long QTc Labs Reviewed: [...] - Hx of statin intolerance, on Repatha [employer]OTB[employer]ER - supplemental O2 if needed - potential [...] with EF 60-65%. BNP in ED at [facility] 3200 - RU[employer]ER GDMT ??? Metoprolol tartrate 12.5 mg BID [...] diet - SSI - Lantus 20 U daily(RU[employer] FOOTBALLER dose is 31) - Aspart 7 U TID ACHS - Hold [employer]BALLER Metformin 1st deg AV delay VTE Prophylaxis Pharmacologic Prophylaxis: Heparin gtt Discharge Plan Home or self care VIKASH GUZMAN MD 12/05/2022 7:43 * Alysia Aguiar [facility] - 12/04/2022 1615 EDT Transitions of Care - Pharmacy Admission Medication Reconciliation Fortunato Hart is a 72 y.o. female admitted on 12/03/2022 for NSTEMI (non-ST elevated myocardial infarction) ([facility]) ([facility]) Pharmacist Interventions/Recommendations: 1. RU[employer]ER med list updated 2. Pharmacy to call [...] needle ??? blood glucose [place] [facility] (non-drug; [...] scanning reader (FREESTYLE VICKY 2 READER) [facility] 1 Device by [facility] (non-drug; comboroute) route daily. [...] 2 WEEKS ??? UNIFINEmily PENTIPS Preferred Pharmacy: [facility] - [address] ALYSIA AGUIAR RPH * Elsie Otoole [...] present. Medications Reviewed: Changes notable for holding [employer]ER metoprolol due to long QTc Labs Reviewed: [...] - Hx of statin intolerance, on Repatha [employer]ER - supplemental O2 if needed - potential [...] with EF 60-65%. BNP in ED at [facility] 3200 - RU[employer]ER GDMT ??? Metoprolol tartrate 12.5 mg BID [...] diet - SSI - Lantus 20 U daily(RU[employer] FOOTBALLER dose is 31) - Aspart 7 U TID ACHS - Hold RU[employer] FOOTBALLER Metformin VTE Prophylaxis Pharmacologic Prophylaxis: Heparin gtt Discharge Plan Home or self care Elsie Otoole MD Internal Medicine PGY-1 Pager #[phone] ELSIE OTOOLE 12/04/2022 14:32 * Mary Falcon RN - 12/04/2022 8899 EDT 12/04:The following assessment was completed on 12/01 at the [facility]; CM will continue to follow Mary Falcon RN [facility] #[id number] Initial Case Management/Social Work Assessment and Discharge Plan/Readmission Risk Assessment ?? REASON FOR ADMISSION: Acute heart failure, unspecified heart failure type (HCC- CMS) ([facility]) Patient understands reason for admission: Yes ?? PATIENT INFO VERIFIED: PCP Type of housing (single family, condo, apartment, usp, single room occupancy, [facility] funded hotel room, group correction) - Home Who does the patient live with? Does the patient have access to their own bedroom/bathroom/kitchen - or is it shared with others? Yes Name of housing complex (ex [facility], [facility], etc)- n/a Housing Authority/Managing Organization - n/a Community Care Providers (disease case manager, [facility] nurse, etc) name and contact information- n/a [...] Type of Healthcare Directive: Durable power of deputy attorney general for health care, Health care treatment directive Copy in Chart: Yes, new copy in paper chart @ [facility] Information Provided on Healthcare Directives: No Information on Healthcare Directives Requested: No DIRECTIVES FOR FINANCES: Directive For Finances: No ?? TRANSPORTATION: Transportation: Family Transportation Additional Details: vs. ambulance to [facility] Final Discharge Destination: Home Patient expects to be discharged to: Home ?? CULTURAL, ORTHODOX and/or LANGUAGE factors affecting health care/discharge planning: Spiritual/Cultural Requests: None ?? Insurance Information: Medical Insurance: Yes Type of insurance: Medicare ([facility]) Referred to patient financial services: No [...] Home Health Services: None DME Provider: Pharmacy: [facility] - [address] [address] ?? [facility] - [address] [place] [phone] ?? Home Health: Other: ?? [facility] TRANSITION PLAN: Patients PCP, pharmacy and demographics verified. Patient lives withher in a one story house with one step to enter. Patient has an advanced directive on file listing her as medical agent. Patient utilizes a walker and no other DME's. Patient is expected to transfer to [facility] today for a heart cath. CM to follow. ?? CHARITO MOCK 12/02/2022 9:57 documented in this encounter H&P Notes * Randy Sebastian MD - 12/03/2022 4694 EDT STAFF ATTESTATION: I, Randy Sebastian MD, [...] Disease presenting as a direct transfer from [facility] where she presented on 12/01 due to shortness of breath, and chest tightness that woke her up from her sleep 3- 4 days prior. Otherwise has been doing well, no recent GIB no melanotic stools since her discharge last month. Per [facility] note: She presented to the emergency department [...] peaked at 0.11. Cardiology recommended transfer to [facility] for cardiac catheterization. She was not started [...] noted in HPI. Prior Cardiac History: 11/20 [facility] cardiology clinic event monitor worn 10/13/2022-11/12/2022 which [...] 2 READER) misc 1 Device by [facility] (non-drug; comboroute) route daily. [...] ??? Propoxyphene N-Acetaminophen Other reaction(s): Hallucinations ??? Bakgjeb-Kjg-Lto Reductase Inhibitors ??? Trulicity [Dulaglutide] Gi Side [...] Disease presenting as a direct transfer from [facility] fpr NSTEMI. Plan N-STEMI: HLD HTN symptomatic,troponin peaked at .130 on 12/01, initially down-trended than began to uptrend from .97 to peak of .112 on 12/02 -Eliquis taken earlier today (12/03) - Telemetry class I - repeat troponin - aspirin 81mg daily - Heparin gtt - Nitro 0.4mg SL q5min prn - Hx of statin intolerance - on Repatha [employer]ION FOOTBALLER - supplemental O2 if needed - potential [facility] Wednesday - NPO at midnight Wednesday - NPO now for potential stress test - ordered lipid profile HYpertrophic Cardiomyopathy -Cardiac MRI w/ velocity map ordered -Hold BB due to prolonged Qt -Daily Mg Acute on chronic HFpEF Exacerbation: P/w e/o mild fluid overload consistent with HF exacerbation. Last TTE with EF 60-65%. BNP in ED at [facility] 3200 - RU[employer]BALLER GDMT ??? Hold Metoprolol due to prolonged [...] diet - SSI - Lantus 20 U daily(RUGB[employer]ION FOOTBALLER dose is 31) - Aspart 7 U TID ACHS - Hold RU[employer] FOOTBALLER Metformin Code status: Full Code Diet: DIET HEART HEALTHY DIET NPO AFTER MIDNIGHT- Wednesday VTE Prophylaxis: Hep gtt, hold RU[employer]ER apixaban Consults: None Discharge: Unclear, pending resolution of above Darion Tinajero MD PGY-2 Internal Medicine Epic secure chat, #[phone] 12/03/22 22:46 documented in this encounter Procedure Notes * Edgardo Ha MD - 12/08/2022 1600 EDT Dear Bryant Crain Fortunato Hart underwent cardiac catheterization at [facility] on 12/08/2022. She had presented with some [...] artery Procedure: She was brought to [facility] for the procedure: [...] well. Post Procedure Follow Up: John Ha DONATION WORKER at [facility] cards Post Interventional Conclusion/Physician Disposition: (check one main category) Inpatient procedure, continue inpatient status (no procedural complication required) Edgardo Ha MD PagerNumber: 12/08/2022 16:00 documented in this encounter Miscellaneous Notes * Plan of Care - Tiffanie Fernandez, JALEN - 12/09/2022 0669 EDT D: Pt s/p LHC w/ 1 [...] Care - Mikal Murphy RN - 12/08/2022 5125 EDT Data: Assumed care at 1900. Pt [...] 12/08/2022 1825 EDT Data: Patient NPO for [facility] this morning. VS stable and patient [...] previous allergic reaction to contrast. Patient to bean sprout laborer with RN and Drakerk at ____. Response: Patient returned to [place] [address] at 1620 with 1 MADONNA to RCA. [...] rate. Call woods within reach. Plan for [facility] today. Mikal Murphy 12/08/22 Problem: Daily [...] drip doac. Patient first degree rythem. Patient ASSISTANT GROCERY due to past CVA. Action: patient telemetry [...] heparin drip doac. Patient afib rythem. Patient ASSISTANT GROCERY due to past CVA. Action: patient telemetry [...] Failure Nurse Clinician Secure Chat or pager #[phone] * Plan of Care - Teresa Silverman RN - 12/04/2022 0144 EDT Problem: Daily Care Plan Goals Goal: Care Plan Documentation Outcome: Ongoing Data: Pt transferred from [facility] for continued cardiac investigation. Dx NSTEMI. A/Ox3. Ind in the room. VSS - BP elevated at times. Tele SR with 1st deg HB, BBB, and freq PVC's. Denies CP at this time. Action: Ctm tele, VS. Response: Pt resting at this time. Plan for cardiac MRI later today. Possible NM stress test. Tentative [facility] for Wednesday. TERESA SILVERMAN RN 12/04/2022 [...] of GIB with recent [facility] [facility], CVA, 2DM, PD who presents asa transfer from [facility] with elevated troponin and intermittent chest pain. [...] of breath. The patient had presented to [facility], there troponins were persistently positive and adynamic. BNP elevated to 3200. She received a single dose of IV Lasix. Patient was maintained on her home Eliquis and did not receive aspirin loading while at [facility]. Last dose 12/03 pm With regards to her recent history of GI bleed the patient had initially presented to [facility] with 1 week of melanotic stools and 2 syncopal episodes. She developed acute hematemesis while there requiring significant transfusion and FFP administration, she was then transferred to [facility]. EGD performed showed duodenal erosion, scattered petechiae in the stomach and no active bleeding. She was maintained on bid PPI and did not have recurrent bleeding or instability. In this context the patient hada significantly elevated troponin to 34.7 peak which decreased to 32 on next check. She was subsequently restarted on eliquis on 11/23. Patient had stable Hgbs at [facility] and no evident bleeding. Per RAHEEM Ha's note on 11/20 [facility] cardiology clinic event monitor worn 10/13/2022-11/12/2022 which showed both AVB type I as well as periods of 2-1 blockwith HR 28-30 bpm, one pause lasting 3 seconds, AF burden <1%, and 5 nonsustained runs of ventricular tachycardia. EKG-sinus rhythm with normal axis, first-degree AV block, nonspecific intraventricular conduction delay delay, prolonged QT, LVH, PVCs Exam- Hufvvkm-klbh-ulbrwtpdz, sitting up in bed, appears comfortable Neck-no [...] history of short runs of NSVT on intermediate manager rhythm monitoring as well as 2 documented [...] and/or intervention to the patient (or responsible green party) and have answered the patient's (or responsible green party's) questions. To the best of my knowledge, the patient (or responsible green party) has been adequately informed. The patient (or responsible green party) has consented to the interventional cardiac procedure. As partof the consent we reviewed that, like surgical procedures, interventional procedures require aggressive short term support to determine the potential benefits of the procedures. For this reason, the patient (or responsible green party) has agreed to remain FULL CODE for a minimum of 48 hours after the procedure. documented in this encounter Plan of Treatment Upcoming Encounters Date Type Department Care Team (Late st Contact Info) Description 03/08/2024 9:30 EDT Ancillary Procedure [facility] - [place] [address] 03/08/2024 10:15 EDT Ancillary Procedure [facility] [place] [address] 04/05/2024 10:00 EDT Ancillary Procedure [facility] [address] [place] [id number] 04/05/2024 10:00 EDT Office Visit [facility] [address] [place] [id number] Carlos Ha NP [address] [place] [address] [address] [place] [id number] Scheduled Orders Name Type Priority Associated Diagnoses Orde r Schedule EKG 12-LEAD ECG STAT One Time for 1 Occurrences starting 12/08/2022 until 12/08/2022 Scheduled Referrals Name Type Priority Associated Diagnoses Order Schedule AMB CONS/FOLLOW UP CARDIOLOGY Outpatient Referral Routine/Next Available NSTEMI (non-ST elevated myocardial infarction) ([facility]) Expected: 12/22/2022 (Approximate), Expires: 12/09/2023 AMB CONS/FOLLOW UP PRIMARY CARE PHYSICIAN - EXTERNAL Outpatient Referral Routine/Next Available NSTEMI (non-ST elevated myocardial infarction) ([facility]) Expected: 12/15/2022 (Approximate), Expires: 12/09/2023 PROVIDER FOLLOW-UP INSTRUCTIONS Outpatient Referral Routine Ordered: 12/08/2022 AMB CONS/FOLLOW UP CARDIAC REHABILITATION Outpatient Referral Routine/Next Available NSTEMI (non-ST elevated myocardial infarction) ([facility]) Expected: 12/16/2022 (Approximate), Expires: 12/09/2023 documented as [...] EDT) 12/26/2022 18:2 2 EDT Scan 2 Manager Ent PROCEDURE/MINOR CROW GICAL ORDERABLES * ECG REPORT - SCANNED (12/24/2022 9:21 EDT) 12/24/2022 9:21 EDT Scan 2 Manager Ent PROCEDURE/MINOR CROW GICAL ORDERABLES * ECG REPORT - SCANNED (12/11/2022 10:17 EDT) 12/11/2022 10:1 7 EDT Scan 2 Manager Ent PROCEDURE/MINOR CROW GICAL ORDERABLES * IMPLANT RECORD - SCANNED (12/11/2022 10:16 EDT) 12/11/2022 10:1 6 EDT Scan 2 Manager Ent PROCEDURE/MINOR CROW GICAL ORDERABLES * ECG REPORT - SCANNED (12/10/2022 19:54 EDT) 12/10/2022 19:5 4 EDT Scan 2 Manager Ent PROCEDURE/MINOR CROW GICAL ORDERABLES * (ABNORMAL) POCT GLUCOSE, INTERFACED (12/09/2022 12:07 EDT) Glucose, POC 204(H) 70 - 100 mg/dL 12/09/2022 12:08 EDT [facility] HN LAB POC COMMENT (GLUCOSE) Test Performed by Nursing Services 12/09/2022 12:08 EDT [facility] Blood CAPILLARY BLOOD / Unknown 12/09/2022 12:07 EDT 12/09/2022 12:08 EDT Darion Tinajero MD POINT OF CARE TEST O RDERABLES Performing Organization Address City/[facility]/ZIP Co de Phone Number [facility] [address] [place] [address] * (ABNORMAL) POCT GLUCOSE, INTERFACED (12/09/2022 7:04 EDT) Glucose, POC 227(H) 70 - 100 mg/dL 12/09/2022 7:06 EDT [facility] HN LAB POC COMMENT (GLUCOSE) Test Performed by Nursing Services 12/09/2022 7:06 EDT [facility] Blood CAPILLARY BLOOD / Unknown 12/09/2022 7:04 EDT 12/09/2022 7:06 EDT Darion Tinajero MD POINT OF CARE TEST O RDERABLES [facility] [address] [place] [address] * MAGNESIUM (12/09/2022 6:32 EDT) Magnesium 2.2 1.7 - 2.8 mg/dL 12/09/2022 7:30 EDT [facility] Blood VENOUS BLOOD / Unknown Venipuncture / Unknown 12/09/2022 6:32 EDT 12/09/2022 7:00 EDT Vikash Guzman MD CHEMISTRY & BLOOD GA S ORDERABLES [facility] [address] [place] [address] * (ABNORMAL) BASIC METABOLIC PANEL (BMP) (12/09/2022 6:32 EDT) Pathologist [facility] Sodium 138 136 - 145 mmol/L 12/09/2022 7:30 EDT [facility] Potassium 4.3 3.5 - 5.0 mmol/L 12/09/2022 7:30 [facility] Chloride 107 96 - 110 mmol/L 12/09/2022 7:30 T [facility] CO2 Total 19(L) 22 - 32 mmol/L 12/09/2022 7:30 [facility] Anion Gap 12 5 - 14 mmol/L 12/09/2022 7:30 [facility] Glucose 211(H) 70 - 100 mg/dl 12/09/2022 7:30 [facility] Calcium 10.5 8.5 - 10.5 mg/dL 12/09/2022 7:30 [facility] BUN 15 10 - 26 mg/dL 12/09/2022 7:30 [facility] Creatinine 0.95 0.52 - 1.04 mg/dL 12/09/2022 7:30 [facility] eGFR 64 >60 mL/min/1.73 m2 12/09/2022 7:30 T [facility] Blood VENOUS BLOOD / Unknown Venipuncture / Unknown 12/09/2022 6:32 EDT 12/09/2022 7:00 EDT Darion Tinajero MD CHEMISTRY & BLOOD GA S ORDERABLES Performing Organization Address City/State/[facility] Co de Phone Number [facility] [address] [place] [address] * (ABNORMAL) COMPLETE BLOOD COUNT (12/09/2022 6:31 EDT) WBC 7.64 4.00 - 12.40 K/cmm 12/09/2022 6:57 EDT [facility] RBC 3.47(L) 3.86 - 5.04 M/cmm 12/09/2022 6:57 EDT [facility] Hemoglobin 9.1(L) 11.6 - 15.2 g/dL 12/09/2022 6:57 EDT [facility] HCT 28.1(L) 34.9 - 44.4 % 12/09/2022 6:57 EDT [facility] MCV 81 81 - 98 fL 12/09/2022 6:57 EDT [facility] MCH 26.2(L) 26.7 - 33.3 pg 12/09/2022 6:57 EDT [facility] MCHC 32.4 32.1 - 35.9 g/dL 12/09/2022 6:57 EDT [facility] RDW-CV 15.1(H) <14.7 % 12/09/2022 6:57 EDT [facility] RDW-SD 44.0 <50.4 fl 12/09/2022 6:57 EDT [facility] PLT 470(H) 141 - 377 K/cmm 12/09/2022 6:57 EDT [facility] MPV 10.3 9.5 - 12.7 fL 12/09/2022 6:57 EDT [facility] Blood VENOUS BLOOD / Unknown Venipuncture / Unknown 12/09/2022 6:31 EDT 12/09/2022 6:51 EDT Darion Tinajero MD HEMATOLOGY & PF4 ORD ERABLES [facility] [address] [place] [address] * (ABNORMAL) POCT GLUCOSE, INTERFACED (12/09/2022 4:22 EDT) Glucose, POC 260(H) 70 - 100 mg/dL 12/09/2022 4:24 EDT [facility] HN LAB POC COMMENT (GLUCOSE) Test Performed by Nursing Services 12/09/2022 4:24 EDT [facility] Blood CAPILLARY BLOOD / Unknown 12/09/2022 4:22 EDT 12/09/2022 4:24 EDT Von Walters MD POINT OF CARE TEST ORDERABLES Performing Organization Address City/[facility]/ZIP Co de Phone Number [facility] [address] [place] [address] * (ABNORMAL) POCT GLUCOSE, INTERFACED (12/08/2022 23:55 EDT) Glucose, POC 375(H) 70 - 100 mg/dL 12/08/2022 23:56 EDT [facility] HN LAB POC COMMENT (GLUCOSE) Test Performed by Nursing Services 12/08/2022 23:56 EDT [facility] Blood CAPILLARY BLOOD / Unknown 12/08/2022 23:55 EDT 12/08/2022 23:56 EDT Von Walters MD POINT OF CARE TEST ORDERABLES [facility] [address] [place] [address] * (ABNORMAL) POCT GLUCOSE, INTERFACED (12/08/2022 21:17 EDT) Glucose, POC 390(H) 70 - 100 mg/dL 12/08/2022 21:19 EDT [facility] HN LAB POC COMMENT (GLUCOSE) Test Performed by Nursing Services 12/08/2022 21:19 EDT [facility] Blood CAPILLARY BLOOD / Unknown 12/08/2022 21:17 EDT 12/08/2022 21:19 EDT Darion Tinajero MD POINT OF CARE TEST O RDERABLES [facility] [address] [place] [address] * EKG 12-LEAD (12/08/2022 18:48 EDT) 12/08/2022 18:4 8 EDT Narrative [facility] EKG - 12/10/2022 13:41 EDT ? [facility] ? Test Date: ?2022-12-08 Pat Name: ? FORTUNATO TANNER ?Department: ?? [facility] [address] ? Room: ? [id number] Gender: ? Female ? 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 [id number] : ?1950 ? Requested By: KRISTI RODRIGUEZ Order Number: [id number] ? Oleksandr HAY: ?? RANDY SEBASTIAN MD ? Measurements Intervals ?[place] ? Rate: ? 75 ? P: ? IA: ? 0 ?QRS: ?-21 QRSD: ? 121 [...] Note Randy Sebastian MD - 12/10/2022 [facility] Test Date: 2022-12-08 Pat Name: FORTUNATO HART Department: [place] Room: [id number] Gender: Female Calendering Machine Operator: [id number] : 1950 Requested By: KRISTI ADAN Order Number: [id number] Reading MD: RANDY SEBASTIAN MD Measurements Intervals [place] Rate: 75 P: IA: 0 QRS: -21 QRSD: 121 T: 138 QT: 429 QTc: 482 Interpretive Statements SINUS RHYTHM WITH FIRST DEGREE AVB LEFT VENTRICULAR HYPERTROPHY AND ST-T CHANGE POSSIBLE SEPTAL MYOCARDIAL INFARCTION , PROBABLY OLD I reviewed the tracing and have either agreed or edited the findings inthis report. Electronically Signed On 12-10-2022 13:41:55 EDT by RANDY FOSTER. Von Walters MD CARDIAC ECG O RDERABLES [facility] * (ABNORMAL) POCT GLUCOSE, INTERFACED (12/08/2022 16:44 EDT) Glucose, POC 139(H) 70 - 100 mg/dL 12/08/2022 16:46 EDT [facility] HN LAB POC COMMENT (GLUCOSE) Test Performed by Nursing Services 12/08/2022 16:46 EDT [facility] Blood CAPILLARY BLOOD / Unknown 12/08/2022 16:44 EDT 12/08/2022 16:46 EDT Darion Tinajero MD POINT OF CARE TEST O RDERABLES Performing Organization Address City/[facility]/ZIP Co de Phone Number [facility] [address] [place] [address] * OCT (12/08/2022 15:47 EDT) Anatomical Region Laterality Modality Watch Assembly Instructor Narrative 12/08/2022 15:47 EDT Refer to the primary case's report for the procedure summary. Elsie Otoole CARDIAC CATH ORDERAB LES * LEFT HEART CATH, PERCUTANEOUS CORONARY INTERVENTION (12/08/2022 15:47 EDT) Anatomical Region Laterality Modality Watch Assembly Instructor 12/08/2022 14:1 6 EDT Narrative 12/12/2022 10:05 EDT Cardiology [address] [place] [address] Catheterization Laboratory Study Patient: Fortunato Hart M ? Study Date: ?12/08/2022 ?Accession #: ? [id number] : ? 1950 Referring: Elsie Otoole Diagnostic [...] Chest pain. Dyspnea. Nonsustained ventricular ?? tachycardia. Mom-ZF-hehubqml myocardial infarction. Aortic stenosis. ?? Cerebrovascular disease. [...] HISTORY: Chest pain. ??Dyspnea. ??Nonsustained ventricular tachycardia. Vad-DN-npcnqtxd myocardial infarction. ??Aortic stenosis. Cerebrovascular disease. ??PMH: [...] 4. Right radial artery access. A 6FR/.021 Frostproof Sheath Slender sheath ?? was advanced into [...] Note Edgardo Ha MD - 12/12/[address] [place] [id number] Catheterization Laboratory Study Patient: Fortunato Hart M [...] indications: Chest pain. Dyspnea. Nonsustained ventricular tachycardia. Fpy-YZ-sskycysy myocardial infarction. Aortic stenosis. Cerebrovascular disease. 2. [...] HISTORY: Chest pain. Dyspnea. Nonsustained ventricular tachycardia. Bqb-VL-xaczczsj myocardial infarction. Aortic stenosis. Cerebrovascular disease. PMH: [...] 4. Right radial artery access. A 6FR/.021 Frostproof Sheath Slender sheath was advanced into the [...] (12/08/2022 13:01 EDT) 12/08/2022 13:0 1 EDT [facility] EKG - 12/26/2022 14:49 EDT ? [facility] ? Test Date: ?2022-12-08 Pat Name: ? FORTUNATO TANNER ?Department: ?? [place] [address] ? Room: ? CL Gender: ? Female ? 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 [id number] : ?1950 ? Requested By: DELL LOPEZ [facility] Number: [id number] ? Oleksandr MD: ?? REILLY DUQUE MD PhD ? Measurements Intervals ?[place] ? Rate: ? 49 ? P: ? IA: ? 0 ?QRS: ?84 QRSD: ? 122 [...] Reilly Duque MD PhD - 12/26/2022 [facility] Test Date: 2022-12-08 Pat Name: FORTUNATO HART Department: [place] [address] Room: Gender: Female Calendering Machine Operator: [id number] : 1950 Requested By: DELL BEAR Order Number: [id number] Reading MD: [facility]ILLY DUQUE [facility] Measurements Intervals [place] Rate: 49 P: IA: 0 QRS: 84 QRSD: 122 T: 175 [...] PhD. Eddie Damon CARDIAC ECG ORDERAB LES [facility] * (ABNORMAL) POCT GLUCOSE, INTERFACED (12/08/2022 12:21 EDT) Glucose, POC 132(H) 70 - 100 mg/dL 12/08/2022 12:23 EDT [facility] HN LAB POC COMMENT (GLUCOSE) Test Performed by Nursing Services 12/08/2022 12:23 EDT [facility] Blood CAPILLARY BLOOD / Unknown 12/08/2022 12:21 EDT 12/08/2022 12:22 EDT Darion Tinajero MD POINT OF CARE TEST O RDERABLES Performing Organization Address [facility] Co de Phone Number [facility] [address] [place] [address] * ECG REPORT - SCANNED (12/08/2022 12:18 EDT) 12/08/2022 12:1 8 EDT Scan 2 Manager Ent PROCEDURE/MINOR CROW GICAL ORDERABLES * HEPARIN LEVEL - UNFRACTIONATED HEPARIN (12/08/2022 6:02 EDT) Heparin Level-UFH 0.56 Therapeutic Range: 0.30 - 0.70 IU/mL 12/08/2022 6:41 EDT [facility] Comment:Unfractionated hepar in therapeutic range [...] & PF4 ORD ERABLES Performing Organization Address [facility]/ZIP Co de Phone Number [facility] [address] [place] [address] * MAGNESIUM (12/08/2022 6:02 EDT) Magnesium 2.0 1.7 - 2.8 mg/dL 12/08/2022 7:10 EDT [facility] Blood VENOUS BLOOD / Unknown Venipuncture / Unknown 12/08/2022 6:02 EDT 12/08/2022 6:40 EDT Vikash Guzman MD CHEMISTRY & BLOOD GA S ORDERABLES [facility] [address] [place] [address] * (ABNORMAL) BASIC METABOLIC PANEL (BMP) (12/08/2022 6:02 EDT) Sodium 139 136 - 145 mmol/L 12/08/2022 7:10 [facility] Potassium 4.2 3.5 - 5.0 mmol/L 12/08/2022 7:10 [facility] Chloride 107 96 - 110 mmol/L 12/08/2022 7:10 [facility] CO2 Total 20(L) 22 - 32 mmol/L 12/08/2022 7:10 [facility] Anion Gap 12 5 - 14 mmol/L 12/08/2022 7:10 [facility] Glucose 188(H) 70 - 100 mg/dl 12/08/2022 7:10 [facility] Calcium 10.4 8.5 - 10.5 mg/dL 12/08/2022 7:10 [facility] BUN 14 10 - 26 mg/dL 12/08/2022 7:10 [facility] Creatinine 0.96 0.52 - 1.04 mg/dL 12/08/2022 7:10 [facility] eGFR 64 >60 mL/min/1.73 m2 12/08/2022 7:10 [facility] Blood VENOUS BLOOD / Unknown Venipuncture / Unknown 12/08/2022 6:02 EDT 12/08/2022 6:40 EDT Darion Tinajero MD CHEMISTRY & BLOOD GA S ORDERABLES Performing Organization Address City/[facility]/ZIP Co de Phone Number [facility] [address] [place] [address] * (ABNORMAL) COMPLETE BLOOD COUNT (12/08/2022 6:02 EDT) WBC 6.56 4.00 - 12.40 K/cmm 12/08/2022 6:31 [facility] RBC 3.80(L) 3.86 - 5.04 M/cmm 12/08/2022 6:31 [facility] Hemoglobin 9.9(L) 11.6 - 15.2 g/dL 12/08/2022 6:31 [facility] HCT 31.4(L) 34.9 - 44.4 % 12/08/2022 6:31 [facility] MCV 83 81 - 98 fL 12/08/2022 6:31 [facility] MCH 26.1(L) 26.7 - 33.3 pg 12/08/2022 6:31 [facility] MCHC 31.5(L) 32.1 - 35.9 g/dL 12/08/2022 6:31 [facility] RDW-CV 15.3(H) <14.7 % 12/08/2022 6:31 [facility] RDW-SD 45.6 <50.4 fl 12/08/2022 6:31 [facility] PLT 431(H) 141 - 377 K/cmm 12/08/2022 6:31 [facility] MPV 10.4 9.5 - 12.7 fL 12/08/2022 6:31 [facility] Blood VENOUS BLOOD / Unknown Venipuncture / Unknown 12/08/2022 6:02 EDT 12/08/2022 6:19 EDT Darion Tinajero MD HEMATOLOGY & PF4 ORD ERABLES [facility] [address] [place] [address] * (ABNORMAL) POCT GLUCOSE, INTERFACED (12/08/2022 6:00 EDT) Glucose, POC 193(H) 70 - 100 mg/dL 12/08/2022 6:01 EDT [facility] HN LAB POC COMMENT (GLUCOSE) Test Performed by Nursing Services 12/08/2022 6:01 EDT [facility] Blood CAPILLARY BLOOD / Unknown 12/08/2022 6:00 EDT 12/08/2022 6:01 EDT Darion Tinajero MD POINT OF CARE TEST O RDERABLES Performing Organization Address [facility] Co de Phone Number [facility] [address] [place] [address] * (ABNORMAL) POCT GLUCOSE, INTERFACED (12/08/2022 0:26 EDT) Glucose, POC 173(H) 70 - 100 mg/dL 12/08/2022 0:27 EDT [facility] HN LAB POC COMMENT (GLUCOSE) Test Performed by Nursing Services 12/08/2022 0:27 EDT [facility] Blood CAPILLARY BLOOD / Unknown 12/08/2022 0:26 EDT 12/08/2022 0:27 EDT Darion Tinajero MD POINT OF CARE TEST O RDERABLES Performing Organization Address [facility] Co de Phone Number [facility] [address] [place] [address] * (ABNORMAL) POCT GLUCOSE, INTERFACED (12/07/2022 21:11 EDT) Glucose, POC 152(H) 70 - 100 mg/dL 12/07/2022 21:12 EDT [facility] HN LAB POC COMMENT (GLUCOSE) Test Performed by Nursing Services 12/07/2022 21:12 EDT [facility] Blood CAPILLARY BLOOD / Unknown 12/07/2022 21:11 EDT 12/07/2022 21:12 EDT Von Walters MD POINT OF CARE TEST ORDERABLES Performing Organization Address City/[facility]/ZIP Co de Phone Number [facility] [address] [place] [address] * (ABNORMAL) POCT GLUCOSE, INTERFACED (12/07/2022 16:32 EDT) Glucose, POC 123(H) 70 - 100 mg/dL 12/07/2022 16:33 EDT [facility] HN LAB POC COMMENT (GLUCOSE) Test Performed by Nursing Services 12/07/2022 16:33 EDT [facility] Blood CAPILLARY BLOOD / Unknown 12/07/2022 16:32 EDT 12/07/2022 16:33 EDT Darion Tinajero MD POINT OF CARE TEST O RDERABLES Performing Organization Address City/[facility]/ZIP Co de Phone Number [facility] [address] [place] [address] * NM CARD PET PHARM MULT STUDIES [...] Disease presenting as a direct transfer from [facility] fpr NSTEMI. Today for NM PET, without [...] CT finding(s): small pericardial effusion. Myocardial Flow Roslyn The myocardial flow reserve was 1.89 for [...] using independent software and evaluated by the radiologist/geriatric psychiatrist. Images acquired at rest and post stress [...] 70 - 100 mg/dL 12/07/2022 13:21 EDT [facility] HN LAB POC COMMENT (GLUCOSE) Test Performed by Nursing Services 12/07/2022 13:21 EDT [facility] Blood CAPILLARY BLOOD / Unknown 12/07/2022 13:19 EDT 12/07/2022 13:21 EDT Darion Tinajero MD POINT OF CARE TEST O RDERABLES [facility] [address] [place] [address] * HEPARIN LEVEL - UNFRACTIONATED HEPARIN (12/07/2022 6:41 EDT) [facility] Heparin Level-UFH 0.65 Therapeutic Range: 0.30 - 0.70 IU/mL 12/07/2022 7:10 EDT [facility] Comment:Unfractionated hepar in therapeutic range [...] Elsie Otoole HEMATOLOGY & PF4 ORD ERABLES [facility] [address] [place] [address] * MAGNESIUM (12/07/2022 6:41 EDT) Magnesium 1.9 1.7 - 2.8 mg/dL 12/07/2022 7:24 EDT [facility] Blood VENOUS BLOOD / Unknown Venipuncture / Unknown 12/07/2022 6:41 EDT 12/07/2022 6:55 EDT Vikash Guzman MD CHEMISTRY & BLOOD GA S ORDERABLES Performing Organization Address City/[facility] Co de Phone Number [facility] [address] [place] [address] * (ABNORMAL) BASIC METABOLIC PANEL (BMP) (12/07/2022 6:41 EDT) Sodium 137 136 - 145 mmol/L 12/07/2022 7:24 EDT [facility] Potassium 4.0 3.5 - 5.0 mmol/L 12/07/2022 7:24 [facility] Chloride 109 96 - 110 mmol/L 12/07/2022 7:24 [facility] CO2 Total 20(L) 22 - 32 mmol/L 12/07/2022 7:24 [facility] Anion Gap 8 5 - 14 mmol/L 12/07/2022 7:24 [facility] Glucose 167(H) 70 - 100 mg/dl 12/07/2022 7:24 [facility] Calcium 10.1 8.5 - 10.5 mg/dL 12/07/2022 7:24 [facility] BUN 14 10 - 26 mg/dL 12/07/2022 7:24 [facility] Creatinine 0.94 0.52 - 1.04 mg/dL 12/07/2022 7:24 [facility] eGFR 65 >60 mL/min/1.73 m2 12/07/2022 7:24 [facility] Blood VENOUS BLOOD / Unknown Venipuncture / Unknown 12/07/2022 6:41 EDT 12/07/2022 6:55 EDT Darion Tinajero MD CHEMISTRY & BLOOD GA S ORDERABLES [facility] [address] [place] [address] * (ABNORMAL) COMPLETE BLOOD COUNT (12/07/2022 6:41 EDT) WBC 7.35 4.00 - 12.40 K/cmm 12/07/2022 7:03 EDT [facility] RBC 3.43(L) 3.86 - 5.04 M/cmm 12/07/2022 7:03 [facility] Hemoglobin 9.1(L) 11.6 - 15.2 g/dL 12/07/2022 7:03 [facility] HCT 28.4(L) 34.9 - 44.4 % 12/07/2022 7:03 [facility] MCV 83 81 - 98 fL 12/07/2022 7:03 [facility] MCH 26.5(L) 26.7 - 33.3 pg 12/07/2022 7:03 [facility] MCHC 32.0(L) 32.1 - 35.9 g/dL 12/07/2022 7:03 [facility] RDW-CV 15.1(H) <14.7 % 12/07/2022 7:03 [facility] RDW-SD 44.7 <50.4 fl 12/07/2022 7:03 [facility] PLT 401(H) 141 - 377 K/cmm 12/07/2022 7:03 [facility] MPV 10.0 9.5 - 12.7 fL 12/07/2022 7:03 [facility] Blood VENOUS BLOOD / Unknown Venipuncture / Unknown 12/07/2022 6:41 EDT 12/07/2022 6:54 EDT Darion Tinajero MD HEMATOLOGY & PF4 ORD ERABLES Performing Organization Address City/[facility]/ZIP Co de Phone Number [facility] [address] [place] [address] * (ABNORMAL) POCT GLUCOSE, INTERFACED (12/07/2022 6:09 EDT) Glucose, POC 167(H) 70 - 100 mg/dL 12/07/2022 6:12 EDT [facility] HN LAB POC COMMENT (GLUCOSE) Test Performed by Nursing Services 12/07/2022 6:12 EDT [facility] Blood CAPILLARY BLOOD / Unknown 12/07/2022 6:09 EDT 12/07/2022 6:12 EDT Darion Tinajero MD POINT OF CARE TEST O RDERABLES Performing Organization Address [facility] Co de Phone Number [facility] [address] [place] [address] * (ABNORMAL) POCT GLUCOSE, INTERFACED (12/06/2022 21:14 EDT) Glucose, POC 183(H) 70 - 100 mg/dL 12/06/2022 21:15 EDT [facility] HN LAB POC COMMENT (GLUCOSE) Test Performed by Nursing Services 12/06/2022 21:15 EDT [facility] Blood CAPILLARY BLOOD / Unknown 12/06/2022 21:14 EDT 12/06/2022 21:15 EDT Darion Tinajero MD POINT OF CARE TEST O RDERABLES [facility] [address] [place] [address] * (ABNORMAL) POCT GLUCOSE, INTERFACED (12/06/2022 16:36 EDT) Glucose, POC 172(H) 70 - 100 mg/dL 12/06/2022 16:37 EDT [facility] HN LAB POC COMMENT (GLUCOSE) Test Performed by Nursing Services 12/06/2022 16:37 EDT [facility] Blood CAPILLARY BLOOD / Unknown 12/06/2022 16:36 EDT 12/06/2022 16:37 EDT Darion Tinajero MD POINT OF CARE TEST O RDERABLES Performing Organization Address [facility] Co de Phone Number [facility] [address] [place] [address] * (ABNORMAL) POCT GLUCOSE, INTERFACED (12/06/2022 13:26 EDT) Glucose, POC 163(H) 70 - 100 mg/dL 12/06/2022 13:29 EDT [facility] HN LAB POC COMMENT (GLUCOSE) Test Performed by Nursing Services 12/06/2022 13:29 EDT [facility] Blood CAPILLARY BLOOD / Unknown 12/06/2022 13:26 EDT 12/06/2022 13:29 EDT Randy Sebastian MD POINT OF CARE TEST O RDERABLES Performing Organization Address [facility] Co de Phone Number [facility] [address] [place] [address] * (ABNORMAL) POCT GLUCOSE, INTERFACED (12/06/2022 12:17 EDT) Glucose, POC 160(H) 70 - 100 mg/dL 12/06/2022 12:19 EDT [facility] HN LAB POC COMMENT (GLUCOSE) Test Performed by Nursing Services 12/06/2022 12:19 EDT [facility] Blood CAPILLARY BLOOD / Unknown 12/06/2022 12:17 EDT 12/06/2022 12:18 EDT Darion Tinajero MD POINT OF CARE TEST O RDERABLES Performing Organization Address City/[facility]/ZIP Co de Phone Number [facility] [address] [place] [address] * HEPARIN LEVEL - UNFRACTIONATED HEPARIN (12/06/2022 12:09 EDT) Heparin Level-UFH 0.70 Therapeutic Range: 0.30 - 0.70 IU/mL 12/06/2022 12:37 EDT [facility] Comment:Unfractionated hepar in therapeutic range [...] & PF4 ORD ERABLES Performing Organization Address City/[facility]/ZIP Co de Phone Number [facility] [address] [place] [address] * (ABNORMAL) POCT GLUCOSE, INTERFACED (12/06/2022 9:16 EDT) Glucose, POC 180(H) 70 - 100 mg/dL 12/06/2022 9:17 EDT [facility] HN LAB POC COMMENT (GLUCOSE) Test Performed by Nursing Services 12/06/2022 9:17 EDT [facility] Blood CAPILLARY BLOOD / Unknown 12/06/2022 9:16 EDT 12/06/2022 9:17 EDT Darion Tinajero MD POINT OF CARE TEST O RDERABLES Performing Organization Address City/[facility]/ZIP Co de Phone Number [facility] [address] [place] [address] * (ABNORMAL) POCT GLUCOSE, INTERFACED (12/06/2022 8:12 EDT) [facility] Signature Glucose, POC 179(H) 70 - 100 mg/dL 12/06/2022 8:19 EDT [facility] HN LAB POC COMMENT (GLUCOSE) Test Performed by Nursing Services 12/06/2022 8:19 EDT [facility] Blood CAPILLARY BLOOD / Unknown 12/06/2022 8:12 EDT 12/06/2022 8:19 EDT Darion Tinajero MD POINT OF CARE TEST O RDERABLES Performing Organization Address City/[facility] Co de Phone Number [facility] [address] [place] [address] * MAGNESIUM (12/06/2022 6:28 EDT) Magnesium 2.0 1.7 - 2.8 mg/dL 12/06/2022 7:51 EDT [facility] Blood VENOUS BLOOD / Unknown Venipuncture / Unknown 12/06/2022 6:28 EDT 12/06/2022 7:18 EDT Vikash Guzman MD CHEMISTRY & BLOOD GA S ORDERABLES Performing Organization Address [facility] de Phone Number [facility] [address] [place] [address] * (ABNORMAL) BASIC METABOLIC PANEL (BMP) (12/06/2022 6:28 EDT) Sodium 139 136 - 145 mmol/L 12/06/2022 7:51 EDT [facility] Potassium 3.8 3.5 - 5.0 mmol/L 12/06/2022 7:51 EDT [facility] Chloride 108 96 - 110 mmol/L 12/06/2022 7:51 T [facility] CO2 Total 20(L) 22 - 32 mmol/L 12/06/2022 7:51 T [facility] Anion Gap 11 5 - 14 mmol/L 12/06/2022 7:51 EDT [facility] Glucose 177(H) 70 - 100 mg/dl 12/06/2022 7:51 EDT [facility] Calcium 9.9 8.5 - 10.5 mg/dL 12/06/2022 7:51 T [facility] BUN 15 10 - 26 mg/dL 12/06/2022 7:51 [facility] Creatinine 0.89 0.52 - 1.04 mg/dL 12/06/2022 7:51 [facility] eGFR 70 >60 mL/min/1.73 m2 12/06/2022 7:51 [facility] Blood VENOUS BLOOD / Unknown Venipuncture / Unknown 12/06/2022 6:28 EDT 12/06/2022 7:18 EDT Darion Tinajero MD CHEMISTRY & BLOOD GA S ORDERABLES [facility] [address] [place] [address] * (ABNORMAL) COMPLETE BLOOD COUNT (12/06/2022 6:28 EDT) WBC 7.20 4.00 - 12.40 K/cmm 12/06/2022 7:33 [facility] RBC 3.58(L) 3.86 - 5.04 M/cmm 12/06/2022 7:33 [facility] Hemoglobin 9.4(L) 11.6 - 15.2 g/dL 12/06/2022 7:33 [facility] HCT 29.0(L) 34.9 - 44.4 % 12/06/2022 7:33 [facility] MCV 81 81 - 98 fL 12/06/2022 7:33 [facility] MCH 26.3(L) 26.7 - 33.3 pg 12/06/2022 7:33 [facility] MCHC 32.4 32.1 - 35.9 g/dL 12/06/2022 7:33 [facility] RDW-CV 15.0(H) <14.7 % 12/06/2022 7:33 [facility] RDW-SD 43.2 <50.4 fl 12/06/2022 7:33 EDT [facility] PLT 297 141 - 377 K/cmm 12/06/2022 7:33 EDT [facility] MPV 12.2 9.5 - 12.7 fL 12/06/2022 7:33 EDT [facility] Blood VENOUS BLOOD / Unknown Venipuncture / Unknown 12/06/2022 6:28 EDT 12/06/2022 7:17 EDT Darion Tinajero MD HEMATOLOGY & PF4 ORD ERABLES Performing Organization Address City/[facility]/ZIP Co de Phone Number [facility] [address] [place] [address] * HEPARIN LEVEL - UNFRACTIONATED HEPARIN (12/06/2022 0:07 EDT) Heparin Level-UFH 0.62 Therapeutic Range: 0.30 - 0.70 IU/mL 12/06/2022 0:34 EDT [facility] Comment:Unfractionated hepar in therapeutic range [...] Sebastian MD HEMATOLOGY & PF4 ORD ERABLES [facility] [address] [place] [address] * (ABNORMAL) POCT GLUCOSE, INTERFACED (12/05/2022 21:08 EDT) Glucose, POC 288(H) 70 - 100 mg/dL 12/05/2022 21:10 EDT [facility] HN LAB POC COMMENT (GLUCOSE) Test Performed by Nursing Services 12/05/2022 21:10 EDT [facility] Blood CAPILLARY BLOOD / Unknown 12/05/2022 21:08 EDT 12/05/2022 21:10 EDT Darion Tinajero MD POINT OF CARE TEST O SKINNYLASHELL Performing Organization Address [facility] Co de Phone Number [facility] [address] [place] [address] * (ABNORMAL) POCT GLUCOSE, INTERFACED (12/05/2022 16:28 EDT) Glucose, POC 107(H) 70 - 100 mg/dL 12/05/2022 16:29 EDT [facility] HN LAB POC COMMENT (GLUCOSE) Test Performed by Nursing Services 12/05/2022 16:29 EDT [facility] Blood CAPILLARY BLOOD / Unknown 12/05/2022 16:28 EDT 12/05/2022 16:29 EDT Darion Tinajero MD POINT OF CARE TEST O HERNÁN Performing Organization Address [facility] Co de Phone Number [facility] [address] [place] [address] * HEPARIN LEVEL - UNFRACTIONATED HEPARIN (12/05/2022 12:18 EDT) Heparin Level-UFH 0.71 Therapeutic Range: 0.30 - 0.70 IU/mL 12/05/2022 12:41 EDT [facility] Comment:Unfractionated hepar in therapeutic range [...] & PF4 ORD ERABLES Performing Organization Address City/[facility]/ZIP Co de Phone Number [facility] [address] [place] [address] * (ABNORMAL) BASIC METABOLIC PANEL (BMP) (12/05/2022 12:18 EDT) Sodium 140 136 - 145 mmol/L 12/05/2022 13:12 EDT [facility] Potassium 3.9 3.5 - 5.0 mmol/L 12/05/2022 13:12 EDT [facility] Chloride 104 96 - 110 mmol/L 12/05/2022 13:12 T [facility] CO2 Total 25 22 - 32 mmol/L 12/05/2022 13:12 T [facility] Anion Gap 11 5 - 14 mmol/L 12/05/2022 13:12 T [facility] Glucose 173(H) 70 - 100 mg/dl 12/05/2022 13:12 T [facility] Calcium 10.5 8.5 - 10.5 mg/dL 12/05/2022 13:12 T [facility] BUN 15 10 - 26 mg/dL 12/05/2022 13:12 [facility] Creatinine 0.89 0.52 - 1.04 mg/dL 12/05/2022 13:12 T [facility] eGFR 70 >60 mL/min/1.73 m2 12/05/2022 13:12 [facility] Blood VENOUS BLOOD / Unknown Venipuncture / Unknown 12/05/2022 12:18 EDT 12/05/2022 12:25 EDT Darion Tinajero MD CHEMISTRY & BLOOD GA S ORDERABLES Performing Organization Address City/[facility]/ZIP Co de Phone Number [facility] [address] [place] [address] * (ABNORMAL) COMPLETE BLOOD COUNT (12/05/2022 12:18 EDT) WBC 7.00 4.00 - 12.40 K/cmm 12/05/2022 12:32 [facility] RBC 3.82(L) 3.86 - 5.04 M/cmm 12/05/2022 12:32 [facility] Hemoglobin 10.2(L) 11.6 - 15.2 g/dL 12/05/2022 12:32 [facility] HCT 31.9(L) 34.9 - 44.4 % 12/05/2022 12:32 [facility] MCV 84 81 - 98 fL 12/05/2022 12:32 [facility] MCH 26.7 26.7 - 33.3 pg 12/05/2022 12:32 [facility] MCHC 32.0(L) 32.1 - 35.9 g/dL 12/05/2022 12:32 [facility] RDW-CV 14.9(H) <14.7 % 12/05/2022 12:32 [facility] RDW-SD 44.8 <50.4 fl 12/05/2022 12:32 [facility] PLT 467(H) 141 - 377 K/cmm 12/05/2022 12:32 [facility] MPV 10.1 9.5 - 12.7 fL 12/05/2022 12:32 [facility] Blood VENOUS BLOOD / Unknown Venipuncture / Unknown 12/05/2022 12:18 EDT 12/05/2022 12:25 EDT Darion Tinajero MD HEMATOLOGY & PF4 ORD ERABLES [facility] [address] [place] [address] * (ABNORMAL) POCT GLUCOSE, INTERFACED (12/05/2022 11:34 EDT) Glucose, POC 198(H) 70 - 100 mg/dL 12/05/2022 11:35 EDT [facility] HN LAB POC COMMENT (GLUCOSE) Test Performed by Nursing Services 12/05/2022 11:35 EDT [facility] Blood CAPILLARY BLOOD / Unknown 12/05/2022 11:34 EDT 12/05/2022 11:35 EDT Darion Tinajero MD POINT OF CARE TEST O RDERABLES Performing Organization Address [facility] Co de Phone Number [facility] [address] [place] [address] * HEPARIN LEVEL - UNFRACTIONATED HEPARIN (12/05/2022 2:48 EDT) Pathologist [facility] Heparin Level-UFH 0.89 Therapeutic Range: 0.30 - 0.70 IU/mL 12/05/2022 3:05 EDT [facility] Comment:Unfractionated hepar in therapeutic range [...] & PF4 ORD ERABLES Performing Organization Address [facility] Co de Phone Number [facility] [address] [place] [address] * (ABNORMAL) POCT GLUCOSE, INTERFACED (12/05/2022 0:07 EDT) Glucose, POC 187(H) 70 - 100 mg/dL 12/05/2022 0:08 EDT [facility] HN LAB POC COMMENT (GLUCOSE) Test Performed by Nursing Services 12/05/2022 0:08 EDT [facility] Blood CAPILLARY BLOOD / Unknown 12/05/2022 0:07 EDT 12/05/2022 0:08 EDT Randy Sebastian MD POINT OF CARE TEST O RDERABLES Performing Organization Address City/[facility]/ZIP Co de Phone Number [facility] [address] [place] [address] * (ABNORMAL) POCT GLUCOSE, INTERFACED (12/04/2022 20:36 EDT) Glucose, POC 267(H) 70 - 100 mg/dL 12/04/2022 20:37 EDT [facility] HN LAB POC COMMENT (GLUCOSE) Test Performed by Nursing Services 12/04/2022 20:37 EDT [facility] Blood CAPILLARY BLOOD / Unknown 12/04/2022 20:36 EDT 12/04/2022 20:36 EDT Randy Sebastian MD POINT OF CARE TEST O HERNÁN Performing Organization Address [facility]/ZIP Co de Phone Number [facility] [address] [place] [address] * (ABNORMAL) POCT GLUCOSE, INTERFACED (12/04/2022 19:41 EDT) Glucose, POC 190(H) 70 - 100 mg/dL 12/04/2022 19:42 EDT [facility] HN LAB POC COMMENT (GLUCOSE) Test Performed by Nursing Services 12/04/2022 19:42 EDT [facility] Blood CAPILLARY BLOOD / Unknown 12/04/2022 19:41 EDT 12/04/2022 19:42 EDT Darion Tinajero MD POINT OF CARE TEST O RDERABLES [facility] [address] [place] [address] * (ABNORMAL) POCT GLUCOSE, INTERFACED (12/04/2022 18:03 EDT) Glucose, POC 129(H) 70 - 100 mg/dL 12/04/2022 18:04 EDT [facility] HN LAB POC COMMENT (GLUCOSE) Test Performed by Nursing Services 12/04/2022 18:04 EDT [facility] Blood CAPILLARY BLOOD / Unknown 12/04/2022 18:03 EDT 12/04/2022 18:04 EDT Darion Tinajero MD POINT OF CARE TEST O RDERABLES [facility] [address] [place] [address] * MR CARDIAC W WO CONTRAST W [...] gradient is 14 mmHg. Darion Tinajero MD [place] ORDERABLES * (ABNORMAL) HEPARIN LEVEL - UNFRACTIONATED HEPARIN (12/04/2022 12:40 EDT) [facility] Heparin Level-UFH 1.84(HH) Therapeutic Range: 0.30 - 0.70 IU/mL 12/04/2022 13:06 EDT [facility] Comment: Recent or concurrent use [...] & PF4 ORD ERABLES Performing Organization Address City/[facility]/ZIP Co de Phone Number [facility] [address] [place] [address] * (ABNORMAL) POCT GLUCOSE, INTERFACED (12/04/2022 12:26 EDT) [facility] Glucose, POC 164(H) 70 - 100 mg/dL 12/04/2022 12:28 EDT [facility] HN LAB POC COMMENT (GLUCOSE) Test Performed by Nursing Services 12/04/2022 12:28 EDT [facility] Blood CAPILLARY BLOOD / Unknown 12/04/2022 12:26 EDT 12/04/2022 12:28 EDT Darion Tinajero MD POINT OF CARE TEST O RDERABLES [facility] [address] [place] [address] * (ABNORMAL) POCT GLUCOSE, INTERFACED (12/04/2022 7:55 EDT) [facility] Glucose, POC 189(H) 70 - 100 mg/dL 12/04/2022 7:57 EDT [facility] HN LAB POC COMMENT (GLUCOSE) Test Performed by Nursing Services 12/04/2022 7:57 [facility] Blood CAPILLARY BLOOD / Unknown 12/04/2022 7:55 EDT 12/04/2022 7:57 EDT Darion Tinajero MD POINT OF CARE TEST O RDERABLES [facility] [address] [place] [address] * (ABNORMAL) BASIC METABOLIC PANEL (BMP) (12/04/2022 7:26 EDT) Sodium 139 136 - 145 mmol/L 12/04/2022 8:31 [facility] Potassium 3.9 3.5 - 5.0 mmol/L 12/04/2022 8:31 [facility] Chloride 104 96 - 110 mmol/L 12/04/2022 8:31 [facility] CO2 Total 21(L) 22 - 32 mmol/L 12/04/2022 8:31 [facility] Anion Gap 14 5 - 14 mmol/L 12/04/2022 8:31 [facility] Glucose 229(H) 70 - 100 mg/dl 12/04/2022 8:31 [facility] Calcium 10.3 8.5 - 10.5 mg/dL 12/04/2022 8:31 [facility] BUN 18 10 - 26 mg/dL 12/04/2022 8:31 [facility] Creatinine 0.90 0.52 - 1.04 mg/dL 12/04/2022 8:31 [facility] eGFR 69 >60 mL/min/1.73 m2 12/04/2022 8:31 [facility] Blood VENOUS BLOOD / Unknown Venipuncture / Unknown 12/04/2022 7:26 EDT 12/04/2022 8:03 EDT Darion Tinajero MD CHEMISTRY & BLOOD GA S ORDERABLES [facility] [address] [place] [address] * (ABNORMAL) COMPLETE BLOOD COUNT (12/04/2022 7:26 EDT) WBC 8.02 4.00 - 12.40 K/cmm 12/04/2022 8:16 EDT [facility] RBC 3.67(L) 3.86 - 5.04 M/cmm 12/04/2022 8:16 EDT [facility] Hemoglobin 9.8(L) 11.6 - 15.2 g/dL 12/04/2022 8:16 T [facility] HCT 30.4(L) 34.9 - 44.4 % 12/04/2022 8:16 [facility] MCV 83 81 - 98 fL 12/04/2022 8:16 EDT [facility] MCH 26.7 26.7 - 33.3 pg 12/04/2022 8:16 [facility] MCHC 32.2 32.1 - 35.9 g/dL 12/04/2022 8:16 [facility] RDW-CV 14.9(H) <14.7 % 12/04/2022 8:16 [facility] RDW-SD 44.5 <50.4 fl 12/04/2022 8:16 T [facility] PLT 455(H) 141 - 377 K/cmm 12/04/2022 8:16 [facility] MPV 10.7 9.5 - 12.7 fL 12/04/2022 8:16 [facility] Blood VENOUS BLOOD / Unknown Venipuncture / Unknown 12/04/2022 7:26 EDT 12/04/2022 8:01 EDT Darion Tinajero MD HEMATOLOGY & PF4 ORD ERABLES [facility] [address] [place] [address] * (ABNORMAL) VITAMIN D (25,OH) (12/04/2022 7:26 EDT) 25OH Vitamin D Tot 21(L) 30 - 100 ng/mL 12/04/2022 12:18 EDT [facility] Comment: Vitamin D 25,OH Interpretive Ranges: Deficiency: ??<10.0 ng/mL Insufficiency: ??10.0 - 30.0 ng/mL Sufficiency: ??30.0 - 100.0 ng/mL Toxicity: ??>100.0 ng/mL Blood VENOUS BLOOD / Unknown Venipuncture / Unknown 12/04/2022 7:26 EDT 12/04/2022 8:03 EDT Darion Tinajero MD CHEMISTRY & BLOOD GA S ORDERABLES Performing Organization Address [facility] de Phone Number [facility] [address] [place] [address] * (ABNORMAL) LIPID PROFILE (INCLUDES CHOLESTEROL, TRIGLYCERIDES, HDL, LDL) (12/03/2022 23:53 EDT) [facility] Cholesterol 107 <200 mg/dL 12/04/2022 0:16 EDT [facility] Comment:Note that therapeuti c goals will differ between patients based on cardiac risk factors and current medical therapy. HDL 40(L) >=50 mg/dL 12/04/2022 0:16 EDT [facility] Comment:Note that therapeuti c goals will differ between patients based on cardiac risk factors and current medical therapy. LDL, Calculated 29 <160 mg/dL 0:16 T [facility] Comment:Note that therapeuti c goals will differ between patients based on cardiac risk factors and current medical therapy. Triglyceride 188(H) <=150 mg/dL 12/04/2022 0:16 EDT [facility] Comment:Note that therapeuti c goals will differ between patients based on cardiac risk factors and current medical therapy. Chol/HDL Ratio 2.7 See Note 12/04/2022 0:16 EDT [facility] Comment:No reference range h as been established for CHOL/HDL ratio. Non HDL Cholesterol 67 <160 mg/dL 12/04/2022 0:16 EDT [facility] Comment:Note that therapeuti c goals will differ between patients based on cardiac risk factors and current medical therapy. Blood VENOUS BLOOD / Unknown Venipuncture / Unknown 12/03/2022 23:53 EDT 12/04/2022 0:00 EDT Darion Tinajero MD CHEMISTRY & BLOOD GA S ORDERABLES Performing Organization Address [facility] Co de Phone Number [facility] [address] [place] [address] * (ABNORMAL) HEPARIN LEVEL - UNFRACTIONATED HEPARIN (12/03/2022 23:53 EDT) [facility] Signature Heparin Level-UFH 1.52() Therapeutic Range: 0.30 - 0.70 IU/mL 12/04/2022 0:24 EDT [facility] Comment: Recent or concurrent use [...] & PF4 ORD ERABLES Performing Organization Address [facility] Co de Phone Number [facility] [address] [place] [address] * (ABNORMAL) TROPONIN I (12/03/2022 23:53 EDT) Troponin I (ng/mL) 0.105(H) <0.034 ng/mL 12/04/2022 0:32 EDT [facility] Blood VENOUS BLOOD / Unknown Venipuncture / Unknown 12/03/2022 23:53 EDT 12/04/2022 0:00 EDT Narrative [facility] - 12/04/2022 0:32 EDT The results of this assay can be falsely lowered due to the consumption of Biotin. Darion Tinajero MD CHEMISTRY & BLOOD GA S ORDERABLES Performing Organization Address [facility] Co de Phone Number [facility] [address] [place] [address] * MAGNESIUM (12/03/2022 23:11 EDT) [facility] Magnesium 1.9 1.7 - 2.8 mg/dL 12/03/2022 23:42 EDT [facility] Comment:Moderate hemolysis i dentified, interpret with caution as results may be affected due to hemolysis. Blood VENOUS BLOOD / Unknown Venipuncture / Unknown 12/03/2022 23:11 EDT 12/03/2022 23:16 EDT Darion Tinajero MD CHEMISTRY & BLOOD GA S ORDERABLES Performing Organization Address [facility] Co de Phone Number [facility] [address] [place] [address] * EKG 12-LEAD (12/03/2022 22:36 EDT) 12/03/2022 22:3 6 EDT Narrative [facility] EKG - 12/08/2022 12:12 EDT ? [facility] ? Test Date: ?2022-12-03 Pat Name: ? FORTUNATO TANNER ?Department: ?? [place] [address] ? Room: ? SR4061 Gender: ? Female ? 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 : ?1950 ? Requested By: MILTON LEYVA Order Number: [id number] ? Reading MD: ?? DENICE LOBEL MD ? Measurements Intervals ?[place] ? Rate: ? 79 ? P: ?51 IA: ? 299 ?QRS: ?-20 QRSD: ? 117 [...] Note Denice Nash MD - 12/08/2022 [facility] Test Date: 2022-12-03 Pat Name: FORTUNATO HART Department: [place] [address] Room: [facility] Gender: Female Calendering Machine Operator: : 1950 Requested By: MILTON LEYVA Order Number: [id number] Reading MD: DENICE NASH MD Measurements Intervals [place] Rate: 79 P: 51 IA: 299 QRS: -20 QRSD: 117 T: 145 [...] Darion Tinajero MD CARDIAC ECG ORDERABL ES [facility] EKG documented in this encounter Visit Diagnoses Diagnosis ASCVD (arteriosclerotic cardiovascular disease)- Primary Unspecified cardiovascular disease NSTEMI (non-ST elevated myocardial infarction) ([facility]) Acute myocardial infarction, subendocardial infarction, episode of care unspecified Chest pain, unspecified type Hypertrophic cardiomegaly ASCVD (arteriosclerotic cardiovascular disease) Unspecified cardiovascular disease Duodenal erosion Duodenal ulcer, unspecified as acute or chronic, without hemorrhage, perforation, or obstruction Gastrointestinal hemorrhage, unspecified gastrointestinal hemorrhage type NSTEMI (non-ST elevated myocardial infarction) ([facility]) Acute myocardial infarction, subendocardial infarction, episode of care unspecified Hypertrophic cardiomegaly Chest pain Chest pain, unspecified NSTEMI (non-ST elevated myocardial infarction) ([facility]) Acute myocardial infarction, subendocardial infarction, episode of care unspecified documented in this encounter Admitting Diagnoses Diagnosis NSTEMI (non-ST elevated myocardial infarction) ([facility]) Acute myocardial infarction, subendocardial infarction, episode of [...] Farfan RN)2049 (Not Given - Provider: Mikal Mruphy RN - Reason: Other) 0121 (Not Given [...] 25 mg 1 12/03/2022 polyethylene glycol 3350 (AR RALAX) packet 17 g 1 12/03/2022 Lab [...] Date First Orde red Date 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
--- OUTSIDE RECORDS SUMMARY | 2024-01-12 11:21 | XMS_ITS | Encounter Summary ---
Author Organization [facility] Address [address] [place] [address] Care Team Providers Care Crown And Bridge Technician Name Role Phone Bryant Crain MD Primary Care Provider [phone] Carlos Ha CHANGE MANAGEMENT Unavailable [phone] Reason for Visit * Reason Onset Date Comments Results 11/23/2022 Encounter Details Date Type Department Care Team (Late st Contact Info) Description 11/23/2022 Telephone [facility] - [address] [place] [address] Nicole Acosta MD Results Social [...] to monitor. NICOLE ACOSTA MD 11/23/2022 11:11 Product Support Sales Representative documented in this encounter Plan of Treatment Upcoming Encounters Date Type Department Care Team (Late st Contact Info) Description 03/08/2024 9:30 EDT Ancillary Procedure [facility] - [place] [address] [place] [address] 03/08/2024 10:15 EDT Ancillary Procedure [facility] - [facility] [place] [address] 04/05/2024 10:00 EDT Ancillary Procedure [facility] [address] [place] [id number] 04/05/2024 10:00 EDT Office Visit [facility] [address] [place] [address] [id number] Carlos Ha, RAHEEM [address] [place] [address] [address] [place] [address] documented as of this encounter Visit Diagnoses Not on filedocumented in this encounter Care Teams Crown And Bridge Technician Relationship Specialty Start Date End Date Bryant Crain MD [address] [place], [place] [id number] PCP - General 05/04/15 05/17/23 Carlos Ha NP [address] [place] [address] [address] [place] [address] Consulting Clinician Cardiovascular Disease 09/14/21 documented as of this encounter
--- OUTSIDE RECORDS SUMMARY | 2024-01-12 11:21 | XMS_ITS | Encounter Summary ---
Author Organization [facility] Address [address] [place] [address] Care Team Providers Care Plant Pathologist Name Role Phone Bryant Crain MD Primary Care Provider [phone] Carlos Ha CHIMNEY SWEEPER Unavailable [phone] Reason for Visit * Reason Comments Shortness [...] (Routine) Specialty Diagnoses / Procedures [facility] Referred To Contact Diagnoses Acute heart failure, unspecified heart failure type ([facility]) Acute on chronic heart failure with preserved ejection fraction (HFpEF) (FORMER[facility]) Referral ID Status Reason Start Date Expiration Date Visits Re quested Visits Authorized [id number] 12/01/2022 12/03/2022 1 1 Encounter Details Date Type Department Care Team (Latest Contact Info) Description 12/01/2022 12:29 EDT - 12/03/2022 21:39 EDT Hospital Encounter [facility] Medical / Surgical Department [address] [place], [place] [id number] Micah Camarillo MD [address] [place] [address] Estefanía Cleaning MD [address] [place] [phone] Justus Liang MD MPH [address] [place] [address] Archie Lux MD [address] [place] [address] Acute heart failure, unspecified heart [...] diastolic failure Acute hypoxemic respiratory failure Consults: [facility] cardiology Procedures: none HPI/ Hospital Course: 72-year-old female with paroxysmal atrial fibrillation on Eliquis, aortic stenosis, second-degree type I heart block, ventricular tachycardia, CVA, hypertension, type 2 diabetes, Parkinson's. Recent [facility] admission for syncope, chest pain found to [...] peaked at 0.11. Cardiology recommended transfer to [facility] for cardiac catheterization. She was not started on a heparin drip as she was already anticoagulatedon apixaban. Her chest discomfort resolved and her dyspnea improved. However, she did have an episode of chest pain on the morning of December 03 that resolved with administration of nitroglycerin. She was transferred to [facility] in stable medical condition on December 03. [...] hyperglycemia, with long-term current use of insulin ([facility]) by [facility] (non-drug; combo route) route daily. One touch [...] glucose scanning reader (FREESTYLE VICKY 2 READER) [facility] 1 Device by [facility] (non-drug; combo route) route daily. Dispense one [...] 1 Tablet by mouth 2 times daily. ZongTOUCH ULTRA BLUE TEST STRIP test strips TEST [...] Disposition Code Departure Means Destination Comment s [facility] (Acute Care Facility) documented in this encounter Progress Notes * Juli Martienz RN - 12/03/2022 5894 EDT DC Destination and with who: [facility] If Senior Care, Level of Care: n/a Client and/or Family Aware and in Agreement with the dc plan: Client in agreement with DC plan. Denies concerns. IM Issued: n/a Community Service Referrals and Agency: n/a Was the Agency/Person Notified, Who, Contact Info?: n/a Any New Equipment/What Type and from where?: n/a Mode of Transportation and Agency: [facility] ems. * Archie Lux MD - 12/03/2022 1509 EDT Inpatient Internal Medicine Progress Note Patient Name: Joanna Hart Room: [address] [place] [address] Date of Service: 12/03/22 15:09 CC: shortness of breath 24 Hour Events: No major events overnight. Patient is awaiting transfer to [facility] Subjective: Patient had an uneventful night until [...] hyperlipidemia, DM2, and Parkinson's. Recently admitted to [facility] with chest pain and found to have a GI bleed due to erosion in the duodenal bulb and an NSTEMI with troponin peak of 34. She presented 12/01 with shortness of breath, noted to havea heart failure exacerbation and NSTEMI. Her troponin peaked at 0.11 with cardiology recommending transfer to [facility] for cardiac catheterization. Plan: Acute exacerbation of [...] already on apixaban - Awaiting transfer to [facility] for cardiac catheterization Acute hypoxemic respiratory failure- [...] prior to admission apixaban Disposition: -Transfer to [facility] once bed available Greater than 50 minutes [...] during shift. Pt to be transferred to [facility] when bed becomes available. Pt went for US for RLE today. Serial trops continued. Up with standby assist and walker to bathroom. Medicated per AUG. Safety measures in place. Call light within reach. * Suad Silveira - 12/02/2022 1330 EDT Cm Note - Patient is awaiting transfer to [facility]. CM to follow. * Suad Silveira - 12/02/2022 0957 EDT Initial Case Management/Social Work Assessment and Discharge Plan/Readmission Risk Assessment REASON FOR ADMISSION: Acute heart failure, unspecified heart failure type (HCC- CMS) ([facility]) Patient understands reason for admission: Yes PATIENT INFO VERIFIED: PCP Type of housing (single family, condo, apartment, fdc, single room occupancy, [facility] funded hotel room, group long term) - Home Who does the patient live with? Does the patient have access to their own bedroom/bathroom/kitchen - or is it shared with others? Yes Name of housing complex (ex [facility], [facility], etc)- n/a Housing Authority/Managing Organization - n/a Community Care Providers (machine adjuster leader case trim, [facility] nurse, etc) name and contact information- [...] Type of Healthcare Directive: Durable power of claims attorney for health care, Health care treatment directive Copy in Chart: Yes, new copy in paper chart @ [facility] Information Provided on Healthcare Directives: No Information on Healthcare Directives Requested: No DIRECTIVES FOR FINANCES: Directive For Finances: No TRANSPORTATION: Transportation: Family Transportation Additional Details: vs. ambulance to [facility] Final Discharge Destination: Home Patient expects to be discharged to: Home CULTURAL, TAOISM and/or LANGUAGE factors affecting health care/discharge planning: Spiritual/Cultural Requests: None Insurance Information: Medical Insurance: Yes Type of insurance: Medicare ([facility]) Referred to patient financial services: No [...] Home Health Services: None DME Provider: Pharmacy: [facility] [address] [address] [facility] [address] [address] Home Health: Other: [facility]: Patients PCP, pharmacy and demographics verified. Patient lives withher in a one story house with one step to enter. Patient has an advanced directive on file listing her as medical agent. Patient utilizes a walker and no other DME's. Patient is expected to transfer to [facility] today for a heart cath. CM to [...] heart failure, unspecified heart failure type (HCC-CMS) ([facility]). 24 Hour Events: ?? Troponin [...] LAB POC COMMENT (GLUCOSE) Test Performed in [address] [place] [address] POCT GLUCOSE, INTERFACED Result Value Ref Range Glucose, POC 176 (H) 70 - 100 mg/dL LAB POC COMMENT (GLUCOSE) Test Performed in [address] [place] [address] TROPONIN I Result Value Ref Range Troponin [...] Units Date/Time Complete Blood Count and Differential [[id number]] Collected: 12/02/2244 Lab Status: In process Specimen: [...] and Parkinson's who was recently admitted at [facility] with chest pain and found to have a GI bleed due to erosion in the duodenal bulb and an NSTEMI with troponin peak of 34 who presented with shortness of breath and has been admitted for heart failure exacerbation and NSTEMI. Her troponin trended up overnight and cardiology today recommending transfer to [facility] for cardiac catheterization. Plan Chronic heart failure with preserved ejection fraction with acute exacerbation - Strict I's and O's, daily weights - Furosemide 20 twice daily IV - Echocardiogram pending. NSTEMI - Type I versus type II - Trend troponin to peak, monitor telemetry, trend EKG - Obtain echocardiogram - Holding on aspirin and heparin currently. Patient does have WORKPLACE TRAINER AND ASSESSOR apixaban. - Transfer to [facility] for cardiac catheterization. Acute hypoxemic respiratory failure [...] Continuing therapeutic apixaban Discharge Plan: Transfer to [facility] anticipated 24 to 48 hours CODE STATUS: [...] monitored with a Zio patch, admitted at [facility] 11/11/2022 through 11/14/2022 after presenting with syncope [...] and admission with consideration of transfer to [facility] for left heart catheterization dependingon her clinical course. Of note, she resumed her apixaban for atrial fibrillation on Wednesday the under the guidance of her PCP and has not had clinically apparent bleeding since that time. Review of Systems 12 point ROS performed and negative unless otherwise noted above Past Medical History: Diagnosis Date ??? Cerebrovascular accident (CVA) ([facility]) 06/01/2019 ??? Diabetes mellitus, type 2 ([facility]) 01/26/2011 On metformin On metformin ??? Essential hypertension 06/01/2019 ??? Mixed hyperlipidemia 06/05/2019 ??? Nonrheumatic aortic valve stenosis 06/01/2019 ??? Paroxysmal atrial fibrillation ([facility]) ([facility]) 06/01/2019 History reviewed. No pertinent [...] /4 needle ??? blood glucose meter by [facility] (non-drug; combo route) route daily. One touch [...] glucose scanning reader (FREESTYLE VICKY 2 READER) [facility] 1 Device by [facility] (non-drug; comboroute) route daily. Dispense one reader [...] ??? lancets/blood glucose strips (ONE TOUCH COMBO [facility]) -to test blood sugar - twice daily [...] ??? Propoxyphene N-Acetaminophen Other reaction(s): Hallucinations ??? Lzbwtxv-Fze-Yzi Reductase Inhibitors ??? Trulicity [Dulaglutide] Gi Side [...] monitored with a Zio patch, admitted at [facility] 11/11/2022 through 11/14/2022 after presenting with syncope [...] Of note she is continued on her WORKPLACE TRAINER AND ASSESSOR apixaban. #Recent GI bleed -Continue PPI BID -Stable anemia and no clinical evidence of active bleeding even though she has resumed apixaban #New asymmetric right greater than left lower extremity edema -Given recent lapse in Eliquis, ordered right lower extremity duplex ultrasound to exclude DVT, pending #Type 2 diabetes complicated by neuropathy -Continue WORKPLACE TRAINER AND ASSESSOR Lantus daily -SSI -WORKPLACE TRAINER AND ASSESSOR gabapentin for neuropathy -Holding WORKPLACE TRAINER AND ASSESSOR metformin and Ozempic #Atrial fibrillation -Continue WORKPLACE TRAINER AND ASSESSOR metoprolol -Continue WORKPLACE TRAINER AND ASSESSOR apixaban VTE Prophylaxis -WORKPLACE TRAINER AND ASSESSOR Eliquis Code: Full Discharge Plan -Pending clinical course. Consults Cardiology Admission status Inpatient admission due to anticipated duration of hospitalization is two midnights or greater due to acute on chronic CHF, HCM. Discussed with Dr. Payton in the ED Estefanía Cleaning MD 12/01/2022 16:18 documented in this encounter ED Notes * Mciah Camarillo MD - 12/01/2022 1340 EDT Emergency [...] Acute heart failure, unspecified heart failure type ([facility]) ([facility]) Disposition: Admitted Chief complaint: Dyspnea [...] Care - Deepali Phelps RN - 12/03/2022 7699 EDT A&O x3. On telemetry. Denies chest pain or any pain in general. HS finger stick was 207. [place] [id number] at [facility]. Transported via EMS. * Plan of Care [...] today even if she got a bedat [facility]. Tele monitoring in place. Tele has been fluctuating today with 1st degree AV block, bundle branch block, and mobitz type I. Bed available for patient at [facility] this evening. [facility] will be transporting the patient later this [...] givenwith good effect. Tele continued. NPO at [place] 12/03. Assessment as documented. See flowsheets. See [...] No C/O pain. Tele continued. NPO at [place] 12/02. Assessment as documented. See flowsheets. See [...] 03/08/2024 9:30 EDT Ancillary Procedure [facility] Cardiology - [address] [place], [place] [id number] 03/08/2024 10:15 EDT Ancillary Procedure [facility] Cardiology [address] [place] [address] 04/05/2024 10:00 EDT Ancillary Procedure [facility] Cardiology Clinic [address] [place] [phone] 04/05/2024 10:00 EDT Office Visit [facility] Cardiology Clinic [address] [place] [phone] Carlos Ha NP [address] [place] [address] [place] [address] documented as of this encounter [...] EDT) 12/07/2022 12:4 7 EDT Scan 2 Line Haul Owner Operator PROCEDURE/MINOR CROW GICAL ORDERABLES * (ABNORMAL) POCT GLUCOSE, INTERFACED (12/03/2022 20:32 EDT) Glucose, POC 207(H) 70 - 100 mg/dL 12/03/2022 20:33 EDT [facility] HN LAB POC COMMENT (GLUCOSE) Test Performed in 2 [facility] 12/03/2022 20:33 EDT [facility] Blood CAPILLARY BLOOD / Unknown 12/03/2022 20:32 EDT 12/03/2022 20:33 EDT Estefanía Cleaning MD POINT OF CARE FUNMILAYO T ORDERABLES Performing Organization Address [facility] Co de Phone Number [facility] [address] [place] [address] * (ABNORMAL) POCT GLUCOSE, INTERFACED (12/03/2022 17:12 EDT) Glucose, POC 260(H) 70 - 100 mg/dL 12/03/2022 17:13 EDT [facility] HN LAB POC COMMENT (GLUCOSE) Test Performed in 2 [facility] 12/03/2022 17:13 EDT [facility] Blood CAPILLARY BLOOD / Unknown 12/03/2022 17:12 EDT 12/03/2022 17:13 EDT Estefanía Cleaning MD POINT OF CARE FUNMILAYO T ORDERABLES Performing Organization Address City/[facility]/ZIP Co de Phone Number [facility] [address] [place] [phone] * ECG REPORT - SCANNED (12/03/2022 16:31 EDT) 12/03/2022 16:3 1 EDT Scan 2 Line Haul Owner Operator PROCEDURE/MINOR CROW GICAL ORDERABLES * (ABNORMAL) POCT GLUCOSE, INTERFACED (12/03/2022 12:09 EDT) Glucose, POC 198(H) 70 - 100 mg/dL 12/03/2022 12:10 EDT [facility] HN LAB POC COMMENT (GLUCOSE) Test Performed in 2 [facility] 12/03/2022 12:10 EDT [facility] Blood CAPILLARY BLOOD / Unknown 12/03/2022 12:09 EDT 12/03/2022 12:10 EDT Estefanía Cleaning MD POINT OF CARE FUNMILAYO T ORDERABLES [facility] [address] [place] [phone] * (ABNORMAL) POCT GLUCOSE, INTERFACED (12/03/2022 7:50 EDT) Glucose, POC 216(H) 70 - 100 mg/dL 12/03/2022 7:51 EDT [facility] HN LAB POC COMMENT (GLUCOSE) Test Performed in 2 [facility] 12/03/2022 7:51 EDT [facility] Blood CAPILLARY BLOOD / Unknown 12/03/2022 7:50 EDT 12/03/2022 7:51 EDT Estefanía Cleaning MD POINT OF CARE FUNMILAYO T ORDERABLES [facility] [address] [place] [phone] * EKG 12-LEAD (12/03/2022 7:14 EDT) 12/03/2022 7:14 EDT Narrative [facility] - 12/03/2022 8:53 EDT ? [facility] ? Test Date: ?2022-12-03 Pat Name: ? JOANNA GAUTAM ?Department: ? Room: ? 215 Gender: ? Female ? Med Admin: ?? GALLAGER C : ?1950 ? Requested By: JERE JEAN BAPTISTE Order Number: [id number] ? Reading MD: ?? AVIS ARGUETA MD ? Measurements Intervals ?[place]ar[place] ? Rate: ? 81 ? P: ?35 ID: ? [id number] ?QRS: ?-10 QRSD: ? 120 [...] Procedure Note Avis Argueta MD - 12/03/2022 [facility] Test Date: 2022-12-03 Pat Name: JOANNA HART Department: Room: 215 Gender: Female Med Admin: DOMINIK Parada : 1950 Requested By: JERE JEAN BAPTISTE Order Number: [id number] Reading MD: AVIS ARGUETA MD Measurements Intervals Earling Rate: 81 P: 35 ID: [id number] QRS: -10 QRSD: 120 T: 153 [...] GAS ORDERABLES Performing Organization Address [facility] Co de Phone Number [facility] [address] [place] [address] * (ABNORMAL) MAGNESIUM (12/03/2022 6:14 EDT) [facility] Magnesium 1.6(L) 1.7 - 2.8 mg/dL 12/03/2022 6:43 EDT [facility] Blood VENOUS BLOOD / Unknown Venipuncture / Unknown 12/03/2022 6:14 EDT 12/03/2022 6:26 EDT Justus Liang MD MPH CHEMISTRY & BLOOD GAS ORDERABLES Performing Organization Address [facility] Co de Phone Number [facility] [address] [place] [address] * (ABNORMAL) COMPLETE BLOOD COUNT AND DIFFERENTIAL (12/03/2022 6:14 EDT) [facility] WBC 5.91 4.00 - 12.40 K/cmm 12/03/2022 6:28 [facility] RBC 3.29(L) 3.86 - 5.04 M/cmm 12/03/2022 6:28 [facility] Hemoglobin 8.7(L) 11.6 - 15.2 g/dL 12/03/2022 6:28 [facility] HCT 28.2(L) 34.9 - 44.4 % 12/03/2022 6:28 [facility] MCV 86 81 - 98 fL 12/03/2022 6:28 [facility] MCH 26.4(L) 26.7 - 33.3 pg 12/03/2022 6:28 [facility] MCHC 30.9(L) 32.1 - 35.9 g/dL 12/03/2022 6:28 [facility] RDW-CV 14.9(H) <14.7 % 12/03/2022 6:28 [facility] RDW-SD 46.1 <50.4 fl 12/03/2022 6:28 [facility] PLT 407(H) 141 - 377 K/cmm 12/03/2022 6:28 [facility] MPV 9.8 9.5 - 12.7 fL 12/03/2022 6:28 [facility] % Neutrophils 47.1 % 12/03/2022 6:28 [facility] % Lymphocytes 39.1 % 12/03/2022 6:28 [facility] % Monocytes 8.0 % 12/03/2022 6:28 [facility] % Eosinophils 4.4 % 12/03/2022 6:28 [facility] % Basophils 1.2 % 12/03/2022 6:28 [facility] % Immature Grans 0.2 % 12/04/19 6:28 [facility] Absolute Neutrophils 2.79 2.20 - 8.85 K/cmm 12/03/2022 6:28 [facility] Absolute Lymphocytes 2.31 1.09 - 3.30 K/cmm 12/03/2022 6:28 [facility] Absolute Monocytes 0.47 0.10 - 0.80 K/cmm 12/03/2022 6:28 [facility] Absolute Eosinophils 0.26 0.03 - 0.61 K/cmm 12/03/2022 6:28 [facility] ABS Basophils 0.07 0.01 - 0.11 K/cmm 12/03/2022 6:28 [facility] Absolute Immature Grans 0.01 0.00 - 0.06 K/cmm 12/03/2022 6:28 [facility] Type of Differential: Auto 12/03/2022 6:28 [facility] Blood VENOUS BLOOD / Unknown Venipuncture / Unknown 12/03/2022 6:14 EDT 12/03/2022 6:26 EDT Justus Liang MD MPH PACKAGES & DNA ID [id number] ORDERABLES Performing Organization Address City/[facility]/ZIP Co de Phone Number [facility] [address] [place] [address] * (ABNORMAL) BASIC METABOLIC PANEL (BMP) (12/03/2022 6:14 EDT) Sodium 138 136 - 145 mmol/L 12/03[facility]2022 6:[facility] Potassium 3.5 3.5 - 5.0 mmol/L 12/03/2022 6:43 [facility] Chloride 108 96 - 110 mmol/L 12/03/2022 6:43 [facility] CO2 Total 23 22 - 32 mmol/L 12/03/2022 6:43 [facility] Anion Gap 7 5 - 14 mmol/L 12/03/2022 6:43 [facility] Glucose 210(H) 70 - 100 mg/dl 12/03/2022 6:43 [facility] Calcium 9.1 8.5 - 10.5 mg/dL 12/03/2022 6:43 [facility] BUN 16 10 - 26 mg/dL 12/03/2022 6:43 [facility] Creatinine 0.86 0.52 - 1.04 mg/dL 12/03/2022 6:43 [facility] eGFR 73 >60 mL/min/1.73 m2 12/03/2022 6:43 [facility] Blood VENOUS BLOOD / Unknown Venipuncture / Unknown 12/03/2022 6:14 EDT 12/03/2022 6:26 EDT Justus Liang MD MPH CHEMISTRY & BLOOD GAS ORDERABLES Performing Organization Address City/[facility]/ZIP Co de Phone Number [facility] [address] [place] [id number] * (ABNORMAL) TROPONIN I (12/02/2022 23:27 EDT) [facility] Troponin I (ng/mL) 0.112(HH) <0.034 ng/mL 12/03/2022 0:28 EDT [facility] Blood VENOUS BLOOD / Unknown Venipuncture / Unknown 12/02/2022 23:27 EDT 12/02/2022 23:29 EDT Narrative [facility] - 12/03/2022 0:28 EDT The results of this assay can be falsely lowered due to the consumption of Biotin. Justus Liang MD MPH CHEMISTRY & BLOOD GAS ORDERABLES Performing Organization Address [facility]/ZIP Co de Phone Number [facility] [address] [place] [phone] * (ABNORMAL) POCT GLUCOSE, INTERFACED (12/02/2022 20:27 EDT) [facility] Glucose, POC 227(H) 70 - 100 mg/dL 12/02/2022 20:28 EDT [facility] HN LAB POC COMMENT (GLUCOSE) Test Performed in 2 [facility] 12/02/2022 20:28 EDT [facility] Blood CAPILLARY BLOOD / Unknown 12/02/2022 20:27 EDT 12/02/2022 20:28 EDT Estefanía Cleaning MD POINT OF CARE FUNMILAYO T ORDERABLES [facility] [address] [place] [phone] * (ABNORMAL) POCT GLUCOSE, INTERFACED (12/02/2022 16:46 EDT) [facility] Glucose, POC 251(H) 70 - 100 mg/dL 12/02/2022 16:47 EDT [facility] HN LAB POC COMMENT (GLUCOSE) Test Performed in 2 [facility] 12/02/2022 16:47 EDT [facility] Blood CAPILLARY BLOOD / Unknown 12/02/2022 16:46 EDT 12/02/2022 16:47 EDT Estefanía Cleaning MD POINT OF CARE FUNMILAYO T ORDERABLES Performing Organization Address [facility]/ZIP Co de Phone Number [facility] [address] [place] [address] * (ABNORMAL) TROPONIN I (12/02/2022 16:01 EDT) [facility] Troponin I (ng/mL) 0.097(HH) <0.034 ng/mL 12/02/2022 16:58 EDT [facility] Blood VENOUS BLOOD / Unknown Venipuncture / Unknown 12/02/2022 16:01 EDT 12/02/2022 16:21 EDT Narrative [facility] - 12/02/2022 16:58 EDT The results of this assay can be falsely lowered due to the consumption of Biotin. Justus Liang MD MPH CHEMISTRY & BLOOD GAS ORDERABLES Performing Organization Address [facility] Co de Phone Number [facility] [address] [place] [address] * (ABNORMAL) POCT GLUCOSE, INTERFACED (12/02/2022 11:56 EDT) [facility] Glucose, POC 129(H) 70 - 100 mg/dL 12/02/2022 11:57 EDT [facility] HN LAB POC COMMENT (GLUCOSE) Test Performed in [address] [place] [address] 12/02/2022 11:57 EDT [facility] Blood CAPILLARY BLOOD / Unknown 12/02/2022 11:56 EDT 12/02/2022 11:57 EDT Estefanía Cleaning MD POINT OF CARE FUNMILAYO T ORDERABLES Performing Organization Address [facility] [facility] Co de Phone Number [facility] [address] [place] [address] * US LOWER VENOUS DUPLEX (DVT) RIGHT [...] CARE LVOT peak velocity, S 0.9 m/[facility] LVOT mean velocity, S 0.6 m/[facility] PO[facility] CARE LVOT VTI, S 16.8 cm [facility] PO INT OF CARE AV LVOT peak gradient 3 [facility] LVOT mean gradient, S 2 mmHg [facility] PO[facility]ARE LV Diastolic Volume 88 mL [facility] POINT OF CARE LV Systolic Volume 34 mL U [facility] POINT OF CARE LVIDD BY MMODE 4.2 cm [facility] POINT [facility]ARE LV e', lateral 0.11 m/s [facility] POINT OF CARE LV E/e', lateral 12.0 [facility] POINT OF CARE LV e', medial 0.04 m/s [facility] PO[facility]ARE LV e', average 0.07 m/s [facility] POINT OF CARE LV E/e', average 6 [facility] POINT OF CARE Mitral deceleration slope 491 cm/s2 [facility]ARE Mitral deceleration time 258 ms [facility] PO[facility]ARE Mitral E-wave peak velocity 1.3 m/s [facility] POINT OF CARE Mitral A-wave peak velocity 1.5 m/s [facility] POINT OF CARE LA Atrial Area A4C 21.2 cm2 U [facility] POINT OF CARE LA Atrial Area A2C 21.2 cm2 U [facility] POINT OF CARE LA volumes, ES, A4C [...] a-p 3.6 cm [facility] POINT OF CARE ID Int Pk Flow PISA 1.28 mL/s [facility] [...] Images were obtained using cardiac ultrasound machine Mineful-03. General Comparison Compared to the previous study, there were no significant interval changes. Justus Liang MD MPH CARDIAC ECHO SURENDRA [place]HE[place] * (ABNORMAL) TROPONIN I (12/02/2022 8:14 EDT) [facility] Troponin I (ng/mL) 0.100(HH) <0.034 ng/mL 12/02/2022 11:56 EDT [facility] Blood VENOUS BLOOD / Unknown Venipuncture / Unknown 12/02/2022 8:14 EDT 12/02/2022 8:18 EDT Narrative [facility] - 12/02/2022 11:56 EDT The results of this assay can be falsely lowered due to the consumption of Biotin. Justus Liang MD MPH CHEMISTRY & BLOOD GAS ORDERABLES Performing Organization Address City/[facility]/ZIP Co de Phone Number [facility] [address] [place] [phone] * (ABNORMAL) POCT GLUCOSE, INTERFACED (12/02/2022 8:01 EDT) [facility] Glucose, POC 142(H) 70 - 100 mg/dL 12/02/2022 8:02 EDT [facility] HN LAB POC COMMENT (GLUCOSE) Test Performed in [address] [place] [address] 12/02/2022 8:02 EDT [facility] Blood CAPILLARY BLOOD / Unknown 12/02/2022 8:01 EDT 12/02/2022 8:02 EDT Estefanía Cleaning MD POINT OF CARE FUNMILAYO T ORDERABLES [facility] [address] [place] [address] * MAGNESIUM (12/02/2022 6:44 EDT) [facility] Magnesium 1.7 1.7 - 2.8 mg/dL 12/02/2022 7:09 EDT [facility] Blood VENOUS BLOOD / Unknown Venipuncture / Unknown 12/02/2022 6:44 EDT 12/02/2022 6:52 EDT Estefanía Cleaning MD CHEMISTRY & BLOOD GAS ORDERABLES [facility] [address] [place] [address] * (ABNORMAL) COMPLETE BLOOD COUNT AND DIFFERENTIAL (12/02/2022 6:44 EDT) WBC 8.03 4.00 - 12.40 K/cmm 12/02/2022 7:18 [facility] RBC 3.26(L) 3.86 - 5.04 M/cmm 12/02/2022 7:18 [facility] Hemoglobin 8.8(L) 11.6 - 15.2 g/dL 12/02/2022 7:18 [facility] HCT 27.7(L) 34.9 - 44.4 % 12/02/2022 7:18 [facility] MCV 85 81 - 98 fL 12/02/2022 7:18 [facility] MCH 27.0 26.7 - 33.3 pg 12/02/2022 7:18 [facility] MCHC 31.8(L) 32.1 - 35.9 g/dL 12/02/2022 7:18 [facility] RDW-CV 15.0(H) <14.7 % 12/02/2022 7:18 [facility] RDW-SD 45.3 <50.4 fl 12/02/2022 7:18 [facility] PLT 422(H) 141 - 377 K/cmm 12/02/2022 7:18 [facility] MPV 10.4 9.5 - 12.7 fL 12/02/2022 7:18 [facility] % Neutrophils 53.1 % 12/02/2022 7:18 [facility] % Lymphocytes 35.5 % 12/02/2022 7:18 [facility] % Monocytes 6.5 % 12/02/2022 7:18 [facility] % Eosinophils 3.1 % 12/02/2022 7:18 [facility] % Basophils 0.9 % 12/02/2022 7:18 [facility] % Immature Grans 0.9 % 12/03/19 7:18 [facility] Absolute Neutrophils 4.27 2.20 - 8.85 K/cmm 12/02/2022 7:18 [facility] Absolute Lymphocytes 2.85 1.09 - 3.30 K/cmm 12/02/2022 7:18 [facility] Absolute Monocytes 0.52 0.10 - 0.80 K/cmm 12/02/2022 7:18 [facility] Absolute Eosinophils 0.25 0.03 - 0.61 K/cmm 12/02/2022 7:18 [facility] ABS Basophils 0.07 0.01 - 0.11 K/cmm 12/02/2022 7:18 [facility] Absolute Immature Grans 0.07(H) 0.00 - 0.06 K/cmm 12/02/2022 7:18 [facility] Type of Differential: Auto 12/02/2022 7:18 [facility] Blood VENOUS BLOOD / Unknown Venipuncture / Unknown 12/02/2022 6:44 EDT 12/02/2022 6:52 EDT Estefanía Cleaning MD PACKAGES & DNA ID [id number] ORDERABLES [facility] [address] [place] [address] * (ABNORMAL) BASIC METABOLIC PANEL (BMP) (12/02/2022 6:44 EDT) Sodium 139 136 - 145 mmol/L 12/02/2022 7:09 [facility] Potassium 3.9 3.5 - 5.0 mmol/L 12/02/2022 7:09 [facility] Chloride 109 96 - 110 mmol/L 12/02/2022 7:09 [facility] CO2 Total 21(L) 22 - 32 mmol/L 12/02/2022 7:09 [facility] Anion Gap 9 5 - 14 mmol/L 12/02/2022 7:09 [facility] Glucose 156(H) 70 - 100 mg/dl 12/02/2022 7:09 [facility] Calcium 10.2 8.5 - 10.5 mg/dL 12/02/2022 7:09 [facility] BUN 12 10 - 26 mg/dL 12/02/2022 7:09 [facility] Creatinine 0.90 0.52 - 1.04 mg/dL 12/02/2022 7:09 [facility] eGFR 69 >60 mL/min/1.73 m2 12/02/2022 7:09 [facility] Blood VENOUS BLOOD / Unknown Venipuncture / Unknown 12/02/2022 6:44 EDT 12/02/2022 6:52 EDT Estefanía Cleaning MD CHEMISTRY & BLOOD GAS ORDERABLES Performing Organization Address City/[facility]/ZIP Co de Phone Number [facility] [address] [place] [address] * MAGNESIUM (12/01/2022 23:12 EDT) [facility] Magnesium 1.8 1.7 - 2.8 mg/dL 12/01/2022 23:30 EDT [facility] Blood VENOUS BLOOD / Unknown Venipuncture / Unknown 12/01/2022 23:12 EDT 12/01/2022 23:14 EDT Estefanía Cleaning MD CHEMISTRY & BLOOD GAS ORDERABLES Performing Organization Address City/[facility]/ZIP Co de Phone Number [facility] [address] [place] [address] * (ABNORMAL) TROPONIN I (12/01/2022 23:12 EDT) Pathologist [facility] Troponin I (ng/mL) 0.130(HH) <0.034 ng/mL 12/01/2022 23:53 EDT [facility] Blood VENOUS BLOOD / Unknown Venipuncture / Unknown 12/01/2022 23:12 EDT 12/01/2022 23:14 EDT Narrative [facility] - 12/01/2022 23:53 EDT The results of this assay can be falsely lowered due to the consumption of Biotin. Estefanía Cleaning MD CHEMISTRY & BLOOD GAS ORDERABLES Performing Organization Address City/[facility]/ZIP Co de Phone Number [facility] [address] [place] [address] * (ABNORMAL) POCT GLUCOSE, INTERFACED (12/01/2022 20:03 EDT) [facility] Glucose, POC 176(H) 70 - 100 mg/dL 12/01/2022 20:05 EDT [facility] HN LAB POC COMMENT (GLUCOSE) Test Performed in 2 [facility] 12/01/2022 20:05 EDT [facility] Blood CAPILLARY BLOOD / Unknown 12/01/2022 20:03 EDT 12/01/2022 20:04 EDT Estefanía Cleaning MD POINT OF CARE FUNMILAYO T ORDERABLES Performing Organization Address City/[facility]/ZIP Co de Phone Number [facility] [address] [place] [id number] * ECG REPORT - SCANNED (12/01/2022 17:45 EDT) 12/01/2022 17:4 5 EDT Scan 2 [employer] PROCEDURE/MINOR CROW GICAL ORDERABLES * (ABNORMAL) POCT GLUCOSE, INTERFACED (12/01/2022 17:45 EDT) [facility] Glucose, POC 126(H) 70 - 100 mg/dL 12/01/2022 17:45 EDT [facility] HN LAB POC COMMENT (GLUCOSE) Test Performed in 2 [facility] 12/01/2022 17:45 EDT [facility] Blood CAPILLARY BLOOD / Unknown 12/01/2022 17:45 EDT 12/01/2022 17:45 EDT Estefanía Cleaning MD POINT OF CARE FUNMILAYO T ORDERABLES Performing Organization Address City/[facility]/ZIP Co de Phone Number [facility] [address] [place] [address] * (ABNORMAL) TROPONIN I (12/01/2022 16:30 EDT) [...] GAS ORDERABLES Performing Organization Address [facility] Co de Phone Number [facility] [address] [place] [address] * XR CHEST PORTABLE 1 VIEW (12/01/2022 [...] S ORDERABLES Performing Organization Address [facility] Co de Phone Number [facility] [address] [place] [address] * HOLD BLUE TOP (12/01/2022 13:03 EDT) Hold Hold 12/01/2022 14:15 EDT [facility] Blood VENOUS BLOOD / Unknown Venipuncture / Unknown 12/01/2022 13:03 EDT 12/01/2022 13:14 EDT Micah Camarillo MD LAB INFO SERVICE AND SUPPORT & PHONE RESULT Performing Organization Address [facility] Co de Phone Number [facility] [address] [place] [address] * (ABNORMAL) MAGNESIUM (12/01/2022 13:03 EDT) Magnesium 1.4(L) 1.7 - 2.8 mg/dL 12/01/2022 13:36 EDT [facility] Comment:Slight hemolysis fabiola ntified, interpret with caution as results may be affected due to hemolysis. Blood VENOUS BLOOD / Unknown Venipuncture / Unknown 12/01/2022 13:03 EDT 12/01/2022 13:14 EDT Micah Camarillo MD CHEMISTRY & BLOOD GA S ORDERABLES Performing Organization Address [facility] Co de Phone Number [facility] [address] [place] [address] * (ABNORMAL) TROPONIN I (12/01/2022 13:03 EDT) [facility] Troponin I (ng/mL) 0.090(HH) <0.034 ng/mL 12/01/2022 14:07 EDT [facility] Blood VENOUS BLOOD / Unknown Venipuncture / Unknown 12/01/2022 13:03 EDT 12/01/2022 13:14 EDT Narrative [facility] - 12/01/2022 14:07 EDT The results of this assay can be falsely lowered due to the consumption of Biotin. Micah Camarillo MD CHEMISTRY & BLOOD GA S ORDERABLES Performing Organization Address [facility] Number [facility] [address] [place] [address] * (ABNORMAL) BASIC METABOLIC PANEL (BMP) (12/01/2022 13:03 EDT) [facility] Sodium 137 136 - 145 mmol/L 12/01/2022 [...] 11 5 - 14 mmol/L 12/01/2022 13:36 [facility] Glucose 272(H) 70 - 100 mg/dl 12/01/2022 13:36 [facility] Calcium 9.9 8.5 - 10.5 mg/dL 12/01/2022 13:36 [facility] BUN 10 10 - 26 mg/dL 12/01/2022 13:36 [facility] Comment: Slight hemolysis identified, interpret with caution as results may be affected due to hemolysis. Creatinine 0.77 0.52 - 1.04 mg/dL 12/01/2022 13:36 [facility] eGFR 83 >60 mL/min/1.7 3m2 12/01/2022 13:36 [facility] Blood VENOUS BLOOD / Unknown Venipuncture / Unknown 12/01/2022 13:03 EDT 12/01/2022 13:14 EDT Micah Camarillo MD CHEMISTRY & BLOOD GA S ORDERABLES [facility] [address] [place] [address] * (ABNORMAL) COMPLETE BLOOD COUNT AND DIFFERENTIAL (12/01/2022 13:03 EDT) WBC 8.07 4.00 - 12.40 K/cmm 12/01/2022 13:18 [facility] RBC 3.23(L) 3.86 - 5.04 M/cmm 12/01/2022 13:18 [facility] Hemoglobin 8.7(L) 11.6 - 15.2 g/dL 12/01/2022 13:18 [facility] HCT 28.0(L) 34.9 - 44.4 % 12/01/2022 13:18 [facility] MCV 87 81 - 98 fL 12/01/2022 13:18 [facility] MCH 26.9 26.7 - 33.3 pg 12/01/2022 13:18 [facility] MCHC 31.1(L) 32.1 - 35.9 g/dL 12/01/2022 13:18 [facility] RDW-CV 14.8(H) <14.7 % 12/01/2022 13:18 [facility] RDW-SD 46.4 <50.4 fl 12/01/2022 13:18 [facility] PLT 434(H) 141 - 377 K/cmm 12/01/2022 13:18 [facility] MPV 10.1 9.5 - 12.7 fL 12/01/2022 13:18 [facility] % Neutrophils 62.9 % 12/01/2022 13:18 [facility] % Lymphocytes 27.5 % 12/01/2022 13:18 [facility] % Monocytes 6.1 % 12/01/2022 13:18 [facility] % Eosinophils 2.2 % 12/01/2022 13:18 [facility] % Basophils 0.9 % 12/01/2022 13:18 [facility] % Immature Grans 0.4 % 12/02/19 13:18 [facility] Absolute Neutrophils 5.08 2.20 - 8.85 K/cmm 12/01/2022 13:18 [facility] Absolute Lymphocytes 2.22 1.09 - 3.30 K/cmm 12/01/2022 13:18 [facility] Absolute Monocytes 0.49 0.10 - 0.80 K/cmm 12/01/2022 13:18 [facility] Absolute Eosinophils 0.18 0.03 - 0.61 K/cmm 12/01/2022 13:18 [facility] ABS Basophils 0.07 0.01 - 0.11 K/cmm 12/01/2022 13:18 [facility] Absolute Immature Grans 0.03 0.00 - 0.06 K/cmm 12/01/2022 13:18 [facility] Type of Differential: Auto 12/01/2022 13:18 EDT [facility] Blood VENOUS BLOOD / Unknown Venipuncture / Unknown 12/01/2022 13:03 EDT 12/01/2022 13:14 EDT Micah Camarillo MD PACKAGES & DNA PROBE ORDERABLES [facility] [address] [place] [address] * EKG 12-LEAD (12/01/2022 12:40 EDT) 12/01/2022 12:4 0 EDT Narrative [facility] - 12/01/2022 13:48 EDT ? [facility] ? Test Date: ?2022-12-01 Pat Name: ? JOANNA GAUTAM ?Department: ? Room: ? C03 Gender: ? Female ? Med Admin: ?? JF : ?1950 ? Requested By: JUHI Germain Order Number: [id number] ? Oleksandr HAY: ?? AVIS ARGUETA MD ? Measurements Intervals ?[place] ? Rate: ? 72 ? P: ?41 ID: ? [id number] ?QRS: ?-17 QRSD: ? 114 [...] Procedure Note Avis Argueta MD - 12/01/2022 [facility] [place] Test Date: 2022-12-01 Pat Name: JOANNA HART Department: Room: 3 Gender: Female Med Admin: JF : 1950 Requested By: JUHI Germain Order Number: [id number] Oleksandr MD: AVIS ARGUETA MD Measurements Intervals Earling Rate: 72 P: 41 ID: [id number] QRS: -17 QRSD: 114 T: 157 [...] Micah Camarillo MD CARDIAC ECG ORDERABL [facility] documented in this encounter Visit Diagnoses [...] Olvera RN) 923 (Given - Provider: Zully Melton, JALEN)2013 (Given - Provider: jC Olvera RN) 803 (Given - Provider: Miriam [...] injection 2 mg 12/01/2022 polyethylene glycol 3350 (MO RALAX) packet 17 g 1 12/01/2022 ramelteon (ROZEREM) tablet 8 mg 1 3 senna (SENOKOT) tablet 2 Tablet 1 3 Nursing Count Last Ordered Date First Orde red Date CALL HOSPITALIST FOR ADM/REF REUEBN TO [facility] NURSE 1 12/01/2022 CALL PHYSICIAN [...] 12/03/2022 documented in this encounter Care Teams Plant Pathologist Relationship Specialty Start Date End Date Bryant Crain MD [address] [place], [place] [id number] PCP - General 05/04/15 05/17/23 Carlos Ha NP [address] [place] [address] [address] [place] [id number] Consulting Clinician Cardiovascular Disease 09/14/21 documented as of this encounter
--- OUTSIDE RECORDS SUMMARY | 2024-01-12 11:21 | XMS_ITS | Encounter Summary ---
Author Organization [facility] Address [address] [place] [address] Care Team Providers Care Community Health Nurse Supervisor Name Role Phone Bryant Crain MD Primary Care Provider [phone] Carlos Ha STONE GLUER Unavailable [phone] Reason for Visit * Auth/Cert (Routine) Specialty Diagnoses / Procedures Referred By [facility] Referred To Contact Diagnoses NSTEMI (non-ST elevated myocardial infarction) ([facility]) NSTEMI, rising troponin Referral ID Status Reason Start Date Expiration Date Visits Re quested Visits Authorized [id number] 1 1 Encounter Details Date Type Department Care Team (Late st Contact Info) Description 12/08/2022 14:40 EDT - 12/08/2022 15:40 EDT Surgery [facility] Invasive Cardiology Unit [address] [place] [address] Edgardo Ha MD [address] [place] [address] [place] [phone] Left Heart Cath Surgery Details Date/Time Status Location OR Service Patient Class Case Class Case Type Trauma Case? 12/08/22 1440 Posted [facility] Tour Guide Tour Guide 3 Interventional Cardiology Inpatient Panel 1 Procedure [...] Resolved ??? NSTEMI (non-ST elevated myocardial infarction) ([facility]) ([facility]) 12/07/2022 Principal Procedure: Heart cath and Percutaneous coronary intervention Date: 12/08/2022 Access: Right radial artery ?? Procedure: She was brought to [facility]iac [facility] for the procedure: Diagnostic [...] from base to apex. The distal apex ([id number]) is concentrically involved by delayed enhancement. Left [...] Disease presenting as a direct transfer from [facility] where she presented on 12/01 due to shortness of breath, and chest tightness that woke her up from her sleep 3- 4 days prior. At [facility] she was diuresed with IV lasix BID, however trop was still dynamic, requiring a transfer for an ischemic evaluation. At [facility] she underwent a NM PET scan which showed reversible ischemia and she was therefore taken to the laboratory operations coordinator for further evaluation and treatment. Patient had heart cath and stenting as above. Patient did well overnight and was free of arrhythmias on telemetry. Echo done, EF 60-65% with diastolic dysfunction and septal asymmetric hypertrophy which is chronic for her. Patient was restarted on DENTAL SURGEON GDMT as well as new to her jardiance, losartan and spironolactone, tolerating well. Advise following up with OP provider to titrate GDMT as clinically indicated. Of note, patient had a few episodes of asymptomatic AV lilly dysfunction, EP consulted and after reviewing her ECGs and tele, recommend safe discharge on DENTAL SURGEON metop 12.5mg daily, restarted during this admission [...] was requested with PCP and Carlos Ha STONE GLUER. Pt was also referred for cardiac rehab evaluation at [facility]. Of note, PLT noted to be [...] ??? Propoxyphene N-Acetaminophen Other reaction(s): Hallucinations ??? Rjvqvoi-Yei-Kwk Reductase Inhibitors ??? Trulicity [Dulaglutide] Gi Side [...] 11/11/2022 Discharge Follow Up Appointments Scheduled with [facility] Appointments Outside of [facility] We Will Schedule Follow-up appointments and procedures [facility] Cardiac Rehabilitation Referral Your local cardiac rehab program will contact you and/or your bran mixer to discuss. Authorizing Provider: Collette Coker NP [...] for 7 days. blood glucose meter by [facility] (non-drug; combo route) route daily. One touch verio meter or best covered by insurance. cetirizine 10 mg tablet Commonly known as: ZYRTEC Cholecalciferol (Vitamin D3) 10 mcg (400 unit) tablet cyanocobalamin 500 mcg tablet Commonly known as: VITAMIN B-12 FreeStyle Vicky 2 [place] [facility] Generic drug: flash glucose scanning reader 1 Device by [facility] (non-drug; combo route) route daily. Dispense one [...] Tablets by mouth daily. ONE TOUCH COMBO [facility] OneTouch Ultra Blue Test Strip test strips [...] gauge x 1/4 needle Generic drug: Insulin Baldwin (Disposable) * This list has 2 medication(s) that are the same as other medications prescribed for you. Read thedirections carefully, and ask your doctor or other care provider to review them with you. Where to Get Your Medications These medications were sent to [facility] - [address] [address] ?? aspirin 81 mg EC tablet ?? [...] up with your primary care provider or bran mixer. * Discharge Instr - DME* Zandra Monge [...] with long-term current use of insulin ([facility]) by misc (non-drug; combo route) route [...] glucose scanning reader (FREESTYLE VICKY 2 READER) [facility] 1 Device by mis (non-drug; combo route) [...] 1 Tablet by mouth 2 times daily. Nebo.ruTOUCH ULTRA BLUE TEST STRIP test strips TEST [...] - 12/08/2022 1442 EDT Spiritual Care Department Drafter Note Re: Fortunato Hart : 1950 Room: /[facility] Service: Cardiology Rastafari: Scientologist Fortunato has received a visit from the Spiritual Care Department on 12/08/2022. Assessment/Comments: I responded to Fortunato's request for the Sacrament before her procedure. Met with her and her spouse, Kenneth at bedside. They were both receptive and engaged this Drafter. I explored with Fortunato, her hospitalization, treatment [...] Care Welcomed End of Life Patient Is Jain Importance Moderately Important Current Support System Spouse/Significant Other, Family/Friends Level of Support Strong Support ENCOUNTER DATA Date of Encounter 12/08/22 Time of Encounter 1145 Reason for Encounter Referral Referred by Drafter Care Level 4 - Significant Patient Concerns Reason not visited ENCOUNTER Needs Addressed Drafter Support, Fear/Anxiety, Sacraments Interventions Assessed and Affirmed Strengths, Build Relationship, Prayer, Sacraments Sacraments Provided Anointed Date of Anointing 12/08/22 Communion Date of Communion Date of Congregation OUTCOME Outcome Stress Level Reduced Stress Outcome of Encounter Patient Satisfied, Needs Met CARE PLAN Plan Patient/Family will Call if Needed Consult With Additional Support Was Clergy Needed? Yes, provided, Marine Geologist TIME STAMP: Total time spent 20 minutes in direct floor time; >50% of time was spent in spiritual care. RAMONA INGRAM 12/08/2022 14:42 * Kaila Dotson - 12/08/2022 0931 EDT Spiritual Care Department Drafter Note Re: Fortunato Hart : 1950 Room: [place] [address] Service: Cardiology Rastafari: Scientologist Fortunato has received a visit from the Spiritual Care Department on 12/08/2022. Assessment/Comments: Fortunato and Kenneth (of forty-five years!) welcome sewing teacher application internship. Both appear to be coping well with humor, family texting, and going through word puzzles together, though Fortunato shares that 'I'm a little anxious' about the waiting - 'I'd just like to get the heck on out of here.' Drafter application internship affirms the understandable anxiety and frustration of uncertainty. Per Fortunato, her Scientologist charly provides further meaning. She would like sacramental support from a Scientologist sewing teacher when possible. Drafter application internship will reach out to Father Ramona, unit staff sewing teacher. DEMOGRAPHICS Spiritual Care Welcomed Patient Is Jain Importance Moderately Important Current Support System Spouse/Significant Other, Family/Friends Level of Support Strong Support ENCOUNTER DATA Date of Encounter 12/08/22 Time of Encounter 0910 Reason for Encounter Initial Visit Care Level 3 - Some Matter of Substance ENCOUNTER Needs Addressed Drafter Support, Family Support, Fear/Anxiety, Frustration, Gratitude, Prayer Support Interventions Assessed and Affirmed Strengths, Assessed Spiritual/Jain Needs, Build Relationship, Explored Spiritual/Relgious/Social Supports, Family Support, Prayer OUTCOME Outcome Stress Level Reduced Stress Outcome of Encounter Continues to Process Issue, Family Supported CARE PLAN Plan Continued Drafter Support Was Clergy Needed? Yes, unavailable, Marine Geologist TIME STAMP: Total time spent 10 minutes [...] present. Medications Reviewed: Changes notable for holding DENTAL SURGEON metoprolol due to long QTc Labs Reviewed: [...] of diffuse obstructive coronary disease, plan for [facility]. N-STEMI: HLD HTN Symptomatic, troponin peaked at [...] - Hx of statin intolerance, on Repatha DENTAL SURGEON - [facility] today - cont losartan 25 mg ?? Hypertrophic Cardiomyopathy -Cardiac MRI w/ velocity map: severe concentric hypertrophy with EF 60%, distal portion of LV completely obliterates in systole, no abnormal mitral valve motion or LVOT obstruction, aortic stenosis - Daily Mg - cont DENTAL SURGEON Metoprolol tartrate 12.5 mg BID ?? Acute on chronic HFpEF Exacerbation: P/w e/o mild fluid overload consistent with HF exacerbation. Last TTE with EF 60-65% with findings consistent with diastolic dysfunction. BNP in ED at [facility] 3200. Has been euvolemic - start spironolactone [...] - SSI - Lantus 20 U daily (DENTAL SURGEON dose is 31) - Aspart 7 U TID ACHS - Hold DENTAL SURGEON Metformin - losartan 25 mg as above [...] as outlined by Dr. Hooks. In addition, [facility] today revealed RCA stenosis concordant with the perfusion abnormality seen on PET, now s/pPCI. Von Walters MD * Greer Hooks MD - 12/07/2022 2865 EDT Cardiology Progress note Service Date: 12/07/2022 [...] present. Medications Reviewed: Changes notable for holding DENTAL SURGEON metoprolol due to long QTc Labs Reviewed: [...] Possible troponin leak 2/2 true type 1 GA vs HCM. -Eliquis taken earlier (12/03) - Telemetry class I - aspirin 81mg daily - Heparin gtt - Nitro 0.4mg SL q5min prn - Hx of statin intolerance, on Repatha DENTAL SURGEON - supplemental O2 if needed - NM-PET [...] with EF 60-65%. BNP in ED at [facility] 3200 - DENTAL SURGEON GDMT ??? Metoprolol tartrate 12.5 mg BID [...] - SSI - Lantus 20 U daily (DENTAL SURGEON dose is 31) - Aspart 7 U TID ACHS - Hold DENTAL SURGEON Metformin 1st deg AV delay VTE Prophylaxis [...] coronary disease. Thus we will proceed with [facility]. Von Walters MD * Elsie Otoole - 12/06/2022 7627 EDT Cardiology Progress note Service Date: 12/06/2022 [...] present. Medications Reviewed: Changes notable for holding DENTAL SURGEON metoprolol due to long QTc Labs Reviewed: [...] - Hx of statin intolerance, on Repatha DENTAL SURGEON - supplemental O2 if needed - potential [facility] Wednesday - NPO at midnight for potential stress test tomorrow - Lipid profile: cholesterol 107, HDL 40, LDL 29 ?? Hypertrophic Cardiomyopathy -Cardiac MRI w/ velocity map: severe concentric hypertrophy with EF 60%, distal aim of LV completely obliterates in systole, no abnormal mitral valve motion or LVOT obstruction, aortic stenosis -Daily Mg ?? Acute on chronic HFpEF Exacerbation: P/w e/o mild fluid overload consistent with HF exacerbation. Last TTE with EF 60-65%. BNP in ED at [facility] 3200 - DENTAL SURGEON GDMT ??? Metoprolol tartrate 12.5 mg BID [...] diet - SSI - Lantus 20 U daily(DENTAL SURGEON dose is 31) - Aspart 7 U TID ACHS - Hold DENTAL SURGEON Metformin 1st deg AV delay VTE Prophylaxis Pharmacologic Prophylaxis: Heparin gtt Discharge Plan Home or self care Elsie Otoole MD Internal Medicine PGY-1 Pager #[phone] ELSIE OTOOLE 12/06/2022 14:47 Associated attestation - [...] present. Medications Reviewed: Changes notable for holding DENTAL SURGEON metoprolol due to long QTc Labs Reviewed: [...] - Hx of statin intolerance, on Repatha DENTAL SURGEON - supplemental O2 if needed - potential [...] with EF 60-65%. BNP in ED at [facility] 3200 - DENTAL SURGEON GDMT ??? Metoprolol tartrate 12.5 mg BID [...] diet - SSI - Lantus 20 U daily(DENTAL SURGEON dose is 31) - Aspart 7 U TID ACHS - Hold DENTAL SURGEON Metformin 1st deg AV delay VTE Prophylaxis Pharmacologic Prophylaxis: Heparin gtt Discharge Plan Home or self care VIKASH GUZMAN MD 12/05/2022 7:43 * Alysia Aguiar [facility] - 12/04/2022 1615 EDT Transitions of Care - Pharmacy Admission Medication Reconciliation Fortunato Hart is a 72 y.o. female admitted on 12/03/2022 for NSTEMI (non-ST elevated myocardial infarction) ([facility]) ([facility]) Pharmacist Interventions/Recommendations: 1. DENTAL SURGEON med list updated 2. Pharmacy to call [...] 1/4 needle ??? blood glucose meter by [facility] (non-drug; combo route) route daily. One touch verio meter or best covered by insurance. ??? cetirizine (ZYRTEC) 10 mg tablet Take 1 Tablet by mouth daily. ??? Cholecalciferol, Vitamin D3, 10 mcg (400 unit) tablet Take 1 Tablet by mouth daily. ??? cyanocobalamin (VITAMIN B-12) 500 mcg tablet Take 1 Tablet by mouth daily. ??? flash glucose scanning reader (FREESTYLE VICKY 2 READER) [facility] 1 Device by [facility] (non-drug; comboroute) route daily. Dispense one reader [...] ??? lancets/blood glucose strips ([facility] TOUCH COMBO [facility]) -to test blood sugar - [...] 2 WEEKS ??? EBEN SCHWARTZ Preferred Pharmacy: [facility] - [address] ALYSIA AGUIAR RPH * Elsie Otoole [...] present. Medications Reviewed: Changes notable for holding DENTAL SURGEON metoprolol due to long QTc Labs Reviewed: [...] - Hx of statin intolerance, on Repatha DENTAL SURGEON - supplemental O2 if needed - potential [facility] Wednesday - NPO at midnight Wednesday - NPO now for potential stress test - Lipid profile: cholesterol 107, HDL 40, LDL 29 ?? HYpertrophic Cardiomyopathy -Cardiac MRI w/ velocity map ordered -Daily Mg ?? Acute on chronic HFpEF Exacerbation: P/w e/o mild fluid overload consistent with HF exacerbation. Last TTE with EF 60-65%. BNP in ED at [facility] 3200 - DENTAL SURGEON GDMT ??? Metoprolol tartrate 12.5 mg BID [...] diet - SSI - Lantus 20 U daily(DENTAL SURGEON dose is 31) - Aspart 7 U TID ACHS - Hold DENTAL SURGEON Metformin VTE Prophylaxis Pharmacologic Prophylaxis: Heparin gtt Discharge Plan Home or self care Elsie Otoole MD Internal Medicine PGY-1 Pager #[phone] ELSIE OTOOLE 12/04/2022 14:32 * Mary Falcon RN - 12/04/2022 5193 EDT 12/04:The following assessment was completed on 12/01 at the [facility]; CM will continue to follow Mary Falcon RN [id number] Initial Case Management/Social Work Assessment and Discharge Plan/Readmission Risk Assessment ?? REASON FOR ADMISSION: Acute heart failure, unspecified heart failure type (HCC- CMS) (HCC) Patient understands reason for admission: Yes ?? PATIENT INFO VERIFIED: PCP Type of housing (single family, condo, apartment, m[facility]p, single room occupancy, [facility] funded hotel room, group jail) - Home Who does the patient live with? Does the patient have access to their own bedroom/bathroom/kitchen - or is it shared with others? Yes Name of housing complex (ex [employer], [facility], etc)- n/a Housing Authority/Managing Organization - n/a Community Care Providers (high risk case manager, [facility] nurse, etc) name and contact information- n/a [...] Type of Healthcare Directive: Durable power of bankruptcy attorney for health care, Health care treatment directive Copy in Chart: Yes, new copy in paper chart @ [facility] Information Provided on Healthcare Directives: No Information on Healthcare Directives Requested: No DIRECTIVES FOR FINANCES: Directive For Finances: No ?? TRANSPORTATION: Transportation: Family Transportation Additional Details: vs. ambulance to [facility] Final Discharge Destination: Home Patient expects to be discharged to: Home ?? CULTURAL, CHURCH and/or LANGUAGE factors affecting health care/discharge planning: Spiritual/Cultural Requests: None ?? Insurance Information: Medical Insurance: Yes Type of insurance: Medicare ([facility]) Referred to patient financial services: No ?? [...] Home Health Services: None DME Provider: Pharmacy: [facility] - [address] [address] ?? [id number] - [address] [address] ?? Home Health: Other: ?? POST HOSPITAL TRANSITION PLAN: Patients PCP, pharmacy and demographics verified. Patient lives withher in a one story house with one step to enter. Patient has an advanced directive on file listing her as medical agent. Patient utilizes a walker and no other DME's. Patient is expected to transfer to [facility] today for a heart cath. CM to follow. ?? CHARITO MOCK 12/02/2022 9:57 documented in this encounter H&P Notes * Randy Sebastian MD - 12/03/2022 8058 EDT STAFF ATTESTATION: I, Randy Sebastian MD, [...] Disease presenting as a direct transfer from [facility] where she presented on 12/01 due to shortness of breath, and chest tightness that woke her up from her sleep 3- 4 days prior. Otherwise has been doing well, no recent GIB no melanotic stools since her discharge last month. Per [facility] note: She presented to the emergency department [...] peaked at 0.11. Cardiology recommended transfer to [facility] for cardiac catheterization. She was [...] noted in HPI. Prior Cardiac History: 11/20 [facility] cardiology clinic event monitor worn 10/13/2022-11/12/2022 which [...] 1/4 needle ??? blood glucose meter by [facility] (non-drug; combo route) route daily. One touch [...] glucose scanning reader (FREESTYLE VICKY 2 READER) [facility] 1 Device by [facility] (non-drug; comboroute) route daily. Dispense one reader [...] lancets/blood glucose strips (ONE TOUCH COMBO [facility]) -to test blood sugar - twice daily [...] ??? Propoxyphene N-Acetaminophen Other reaction(s): Hallucinations ??? Ounsuat-Eai-Gmc Reductase Inhibitors ??? Trulicity [Dulaglutide] Gi Side [...] Disease presenting as a direct transfer from [facility] fpr NSTEMI. Plan N-STEMI: HLD HTN symptomatic,troponin peaked at .130 on 12/01, initially down-trended than began to uptrend from .97 to peak of .112 on 12/02 -Eliquis taken earlier today (12/03) - Telemetry class I - repeat troponin - aspirin 81mg daily - Heparin gtt - Nitro 0.4mg SL q5min prn - Hx of statin intolerance - on Repatha DENTAL SURGEON - supplemental O2 if needed - potential [facility] Wednesday - NPO at midnight Wednesday - NPO now for potential stress test - ordered lipid profile HYpertrophic Cardiomyopathy -Cardiac MRI w/ velocity map ordered -Hold BB due to prolonged Qt -Daily Mg Acute on chronic HFpEF Exacerbation: P/w e/o mild fluid overload consistent with HF exacerbation. Last TTE with EF 60-65%. BNP in ED at [facility] 3200 - DENTAL SURGEON GDMT ??? Hold Metoprolol due to prolonged [...] diet - SSI - Lantus 20 U daily(DENTAL SURGEON dose is 31) - Aspart 7 U TID ACHS - Hold DENTAL SURGEON Metformin Code status: Full Code Diet: DIET HEART HEALTHY DIET NPO AFTER MIDNIGHT- Wednesday VTE Prophylaxis: Hep gtt, hold DENTAL SURGEON apixaban Consults: None Discharge: Unclear, pending resolution of above Darion Tinajero MD PGY-2 Internal Medicine Epic secure chat, #[phone] 12/03/22 22:46 documented in this encounter Procedure Notes * Edgardo Ha MD - 12/08/2022 1600 EDT Dear Bryant Crain Fortunato Hart underwent cardiac catheterization at [facility] on 12/08/2022. She had presented [...] artery Procedure: She was brought to [facility]iac [facility] for the procedure: Diagnostic [...] well. Post Procedure Follow Up: John Ha STONE GLUER at [facility] cards Post Interventional Conclusion/Physician Disposition: (check one [...] Care - Mary Falcon RN - 12/09/2022 0958 EDT 12/09/22926 Medicare IM Notice IM notice status Patient received notification verbally and in writing while in hospital. IM notice given at discharge? Yes * Plan of Care - Mikal Murphy RN - 12/08/2022 4408 EDT Data: Assumed care at 1900. Pt [...] 12/08/2022 1825 EDT Data: Patient NPO for [facility] this morning. VS stable and patient denies [...] allergic reaction to contrast. Patient to laboratory operations coordinator with RN and [employer] at ____. Response: Patient returned to [place] [id number] at 1620 with 1 MADONNA to RCA. [...] rate. Call woods within reach. Plan for [facility] today. Mikal Murphy 6/20/23 Problem: Daily Care [...] around with as contact guard. Plan for [facility] tomorrow. NPO after MN Action: Assessments documented [...] Care - Gabriela Montesinos RN - 12/06/2022 0575 EDT Data: patient admitted 12/03 for cp. Patient diagnosed with nstemi. Patient npo for possible LHC or stress test. Cardiac MRI complete. Patient on 9 ml heparin drip doac. Patient first degree rythem. Patient FOOD SERVICES MANAGER due to past CVA. Action: patient telemetry [...] with NSTEMI/CHF. Cardiac MRI performed today. Possible [facility] scheduled for December 07 Action: patient medicated [...] heparin drip doac. Patient afib rythem. Patient FOOD SERVICES MANAGER due to past CVA. Action: patient telemetry [...] safety, hourly rounding and pain management ongoing. JYO VELAZCO RN 12/04/2022 19:07 * Heart Failure Education - Chandni Alcala RN - 12/04/2022 8753 EDT Heart failure nurse clinician reviewed heart failure education with pt at the bedside this morning.Please see Education tab for education provided and pt's response. Chandni Alcala RN, CHFN Heart Failure Nurse Clinician Secure Chat or pager #[phone] * Plan of Care - Teresa Silverman RN - 12/04/2022 0144 EDT Problem: Daily Care Plan Goals Goal: Care Plan Documentation Outcome: Ongoing Data: Pt transferred from [facility] for continued cardiac investigation. Dx NSTEMI. A/Ox3. Ind in the room. VSS - BP elevated at times. Tele SR with 1st deg HB, BBB, and freq PVC's. Denies CP at this time. Action: Ctm tele, VS. Response: Pt resting at this time. Plan for cardiac MRI later today. Possible NM stress test. Tentative [facility] for Wednesday. TERESA SILVERMAN RN 12/04/2022 1:44 [...] of GIB with recent admission to the [facility] MICU in 11/10, CVA, 2DM, PD who presents asa transfer from [facility] with elevated troponin and intermittent chest pain. [...] of breath. The patient had presented to [facility], there troponins were persistently positive and adynamic. BNP elevated to 3200. She received a single dose of IV Lasix. Patient was maintained on her home Eliquis and did not receive aspirin loading while at [facility]. Last dose 12/03 pm With regards to her recent history of GI bleed the patient had initially presented to [facility] with 1 week of melanotic stools and 2 syncopal episodes. She developed acute hematemesis while there requiring significant transfusion and FFP administration, she was then transferred to [facility] MICU. EGD performed showed duodenal erosion, scattered petechiae in the stomach and no active bleeding. She was maintained on bid PPI and did not have recurrent bleeding or instability. In this context the patient hada significantly elevated troponin to 34.7 peak which decreased to 32 on next check. She was subsequently restarted on eliquis on 11/23. Patient had stable Hgbs at [facility] and no evident bleeding. Per RAHEEM Ha's note on 11/20 [facility] cardiology clinic event monitor worn 10/13/2022-11/12/2022 which showed both AVB type I as well as periods of 2-1 blockwith HR 28-30 bpm, one pause lasting 3 seconds, AF burden <1%, and 5 nonsustained runs of ventricular tachycardia. EKG-sinus rhythm with normal axis, first-degree AV block, nonspecific intraventricular conduction delay delay, prolonged QT, LVH, PVCs Exam- Ippawdg-ipko-lzxzadqal, sitting up in bed, appears comfortable Neck-no [...] history of short runs of NSVT on nursing home rhythm monitoring as well as 2 documented [...] and/or intervention to the patient (or responsible libertarian) and have answered the patient's (or responsible libertarian's) questions. To the best of my knowledge, the patient (or responsible libertarian) has been adequately informed. The patient (or responsible libertarian) has consented to the interventional cardiac procedure. As partof the consent we reviewed that, like surgical procedures, interventional procedures require aggressive short term support to determine the potential benefits of the procedures. For this reason, the patient (or responsible libertarian) has agreed to remain FULL CODE for a minimum of 48 hours after the procedure. documented in this encounter Plan of Treatment Upcoming Encounters Date Type Department Care Team (Late st Contact Info) Description 03/08/2024 9:30 EDT Ancillary Procedure [facility] [place] [address] 03/08/2024 10:15 EDT Ancillary Procedure [facility] [place] [address] 04/05/2024 10:00 EDT Ancillary Procedure [facility] [address] [place] [address] [id number] 04/05/2024 10:00 EDT Office Visit [facility] [address] [place] [address] [id number] Carlos Ha NP [address] [facility] [address] [place] [id number] Scheduled Orders Name Type Priority Associated Diagnoses Orde r Schedule EKG 12-LEAD ECG STAT One Time for 1 Occurrences starting 12/08/2022 until 12/08/2022 Scheduled Referrals Name Type Priority Associated Diagnoses Order Schedule AMB CONS/FOLLOW UP CARDIOLOGY Outpatient Referral Routine/Next Available NSTEMI (non-ST elevated myocardial infarction) ([facility]) Expected: 12/22/2022 (Approximate), Expires: 12/09/2023 AMB CONS/FOLLOW UP PRIMARY CARE PHYSICIAN - EXTERNAL Outpatient Referral Routine/Next Available NSTEMI (non-ST elevated myocardial infarction) ([facility]) Expected: 12/15/2022 (Approximate), Expires: 12/09/2023 PROVIDER FOLLOW-UP INSTRUCTIONS Outpatient Referral Routine Ordered: 12/08/2022 AMB CONS/FOLLOW UP CARDIAC REHABILITATION Outpatient Referral Routine/Next Available NSTEMI (non-ST elevated myocardial infarction) ([facility]) Expected: 12/16/2022 (Approximate), Expires: 12/09/2023 documented as [...] EDT) 12/26/2022 18:2 2 EDT 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 2 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 PROCEDURE/MINOR CROW GICAL ORDERABLES * ECG REPORT - SCANNED (12/24/2022 9:21 EDT) 12/24/2022 9:21 EDT Scan 2 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 PROCEDURE/MINOR CROW GICAL ORDERABLES * ECG REPORT - SCANNED (12/11/2022 10:17 EDT) 12/11/2022 10:1 7 EDT Scan 2 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 PROCEDURE/MINOR CROW GICAL ORDERABLES * IMPLANT RECORD - SCANNED (12/11/2022 10:16 EDT) 12/11/2022 10:1 6 EDT Scan 2 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 PROCEDURE/MINOR CROW GICAL ORDERABLES * ECG REPORT - SCANNED (12/10/2022 19:54 EDT) 12/10/2022 19:5 4 EDT Scan 2 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 PROCEDURE/MINOR CROW GICAL ORDERABLES * (ABNORMAL) POCT GLUCOSE, INTERFACED (12/09/2022 12:07 EDT) Glucose, POC 204(H) 70 - 100 mg/dL 12/09/2022 12:08 EDT [facility] HN LAB POC COMMENT (GLUCOSE) Test Performed by Nursing Services 12/09/2022 12:08 EDT [facility] Blood CAPILLARY BLOOD / Unknown 12/09/2022 12:07 EDT 12/09/2022 12:08 EDT Darion Tinajero MD POINT OF CARE TEST O RDERABLES [facility] [address] [place] [address] * (ABNORMAL) POCT GLUCOSE, INTERFACED (12/09/2022 7:04 EDT) Glucose, POC 227(H) 70 - 100 mg/dL 12/09/2022 7:06 EDT [facility] HN LAB POC COMMENT (GLUCOSE) Test Performed by Nursing Services 12/09/2022 7:06 EDT [facility] Blood CAPILLARY BLOOD / Unknown 12/09/2022 7:04 EDT 12/09/2022 7:06 EDT Darion Tinajero MD POINT OF CARE TEST O RDERABLES Performing Organization Address City/[facility]/ZIP Co de Phone Number [facility] [address] [place] [address] * MAGNESIUM (12/09/2022 6:32 EDT) Magnesium 2.2 1.7 - 2.8 mg/dL 12/09/2022 7:30 EDT [facility] Blood VENOUS BLOOD / Unknown Venipuncture / Unknown 12/09/2022 6:32 EDT 12/09/2022 7:00 EDT Vikash Guzman MD CHEMISTRY & BLOOD GA S ORDERABLES Performing Organization Address [facility] Co de Phone Number [facility] [address] [place] [address] * (ABNORMAL) BASIC METABOLIC PANEL (BMP) (12/09/2022 6:32 EDT) Sodium 138 136 - 145 mmol/L 12/09/2022 7:30 EDT [facility] Potassium 4.3 3.5 - 5.0 mmol/L 12/09/2022 7:30 T [facility] Chloride 107 96 - 110 mmol/L 12/09/2022 7:30 T [facility] CO2 Total 19(L) 22 - 32 mmol/L 12/09/2022 7:30 T [facility] Anion Gap 12 5 - 14 mmol/L 12/09/2022 7:30 T [facility] Glucose 211(H) 70 - 100 mg/dl 12/09/2022 7:30 [facility] Calcium 10.5 8.5 - 10.5 mg/dL 12/09/2022 7:30 T [facility] BUN 15 10 - 26 mg/dL 12/09/2022 7:30 [facility] Creatinine 0.95 0.52 - 1.04 mg/dL 12/09/2022 7:30 T [facility] eGFR 64 >60 mL/min/1.73 m2 12/09/2022 7:30 T [facility] Blood VENOUS BLOOD / Unknown Venipuncture / Unknown 12/09/2022 6:32 EDT 12/09/2022 7:00 EDT Darion Tinajero MD CHEMISTRY & BLOOD GA S ORDERABLES [facility] [address] [place] [address] * (ABNORMAL) COMPLETE BLOOD COUNT (12/09/2022 6:31 EDT) WBC 7.64 4.00 - 12.40 K/cmm 12/09/2022 6:57 [facility] RBC 3.47(L) 3.86 - 5.04 M/cmm 12/09/2022 6:57 [facility] Hemoglobin 9.1(L) 11.6 - 15.2 g/dL 12/09/2022 6:57 [facility] HCT 28.1(L) 34.9 - 44.4 % 12/09/2022 6:57 [facility] MCV 81 81 - 98 fL 12/09/2022 6:57 [facility] MCH 26.2(L) 26.7 - 33.3 pg 12/09/2022 6:57 [facility] MCHC 32.4 32.1 - 35.9 g/dL 12/09/2022 6:57 [facility] RDW-CV 15.1(H) <14.7 % 12/09/2022 6:57 [facility] RDW-SD 44.0 <50.4 fl 12/09/2022 6:57 [facility] PLT 470(H) 141 - 377 K/cmm 12/09/2022 6:57 [facility] MPV 10.3 9.5 - 12.7 fL 12/09/2022 6:57 [facility] Blood VENOUS BLOOD / Unknown Venipuncture / Unknown 12/09/2022 6:31 EDT 12/09/2022 6:51 EDT Darion Tinajero MD HEMATOLOGY & PF4 ORD ERABLES Performing Organization Address City/[facility]/ZIP Co de Phone Number [facility] [address] [place] [address] * (ABNORMAL) POCT GLUCOSE, INTERFACED (12/09/2022 4:22 EDT) Glucose, POC 260(H) 70 - 100 mg/dL 12/09/2022 4:24 EDT [facility] HN LAB POC COMMENT (GLUCOSE) Test Performed by Nursing Services 12/09/2022 4:24 EDT [facility] Blood CAPILLARY BLOOD / Unknown 12/09/2022 4:22 EDT 12/09/2022 4:24 EDT Von Waltres MD POINT OF CARE TEST ORDERABLES Performing Organization Address [facility]/ZIP Co de Phone Number [facility] [address] [place] [address] * (ABNORMAL) POCT GLUCOSE, INTERFACED (12/08/2022 23:55 EDT) Glucose, POC 375(H) 70 - 100 mg/dL 12/08/2022 23:56 EDT [facility] HN LAB POC COMMENT (GLUCOSE) Test Performed by Nursing Services 12/08/2022 23:56 EDT [facility] Blood CAPILLARY BLOOD / Unknown 12/08/2022 23:55 EDT 12/08/2022 23:56 EDT Von Walters MD POINT OF CARE TEST ORDERABLES Performing Organization Address City/[facility]/ZIP Co de Phone Number [facility] [address] [place] [address] * (ABNORMAL) POCT GLUCOSE, INTERFACED (12/08/2022 21:17 EDT) Glucose, POC 390(H) 70 - 100 mg/dL 12/08/2022 21:19 EDT [facility] HN LAB POC COMMENT (GLUCOSE) Test Performed by Nursing Services 12/08/2022 21:19 EDT [facility] Blood CAPILLARY BLOOD / Unknown 12/08/2022 21:17 EDT 12/08/2022 21:19 EDT Darion Tinajero MD POINT OF CARE TEST O RDERABLES [facility] [address] [place] [address] * EKG 12-LEAD (12/08/2022 18:48 EDT) 12/08/2022 18:4 8 EDT Narrative [facility] E[facility] - 12/10/2022 13:41 EDT ? [facility] ? Test Date: ?2022-12-08 Pat Name: ? FORTUNATO TANNER ?Department: ?? [place] [address] ? Room: ? [id number] Gender: ? Female ? 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 [id number] : ?1950 ? Requested By: KRISTI RODRIGUEZ Order Number: [id number] ? Reading : ?? RANDY SEBASTIAN MD ? Measurements Intervals ?[place] ? Rate: ? 75 ? P: ? OK: ? 0 ?QRS: ?-21 QRSD: ? 121 [...] Note Randy Sebastian MD - 12/10/2022 [facility] Test Date: 2022-12-08 Pat Name: FORTUNATO MALIKRT Department: [place] [address] Room: 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 Electronically Signed On 12-10-2022 13:41:55 EDT by RANDY FOSTER. Von Walters MD CARDIAC ECG O RDERABLES [facility] * (ABNORMAL) POCT GLUCOSE, INTERFACED (12/08/2022 16:44 EDT) Glucose, POC 139(H) 70 - 100 mg/dL 12/08/2022 16:46 EDT [facility] HN LAB POC COMMENT (GLUCOSE) Test Performed by Nursing Services 12/08/2022 16:46 EDT [facility] Blood CAPILLARY BLOOD / Unknown 12/08/2022 16:44 EDT 12/08/2022 16:46 EDT Darion Tinajero MD POINT OF CARE TEST O RDERABLES Performing Organization Address City/[facility]/ZIP Co de Phone Number [facility] [address] [place] [address] * OCT (12/08/2022 15:47 EDT) Anatomical Region Laterality Modality Tour Guide Narrative 12/08/2022 15:47 EDT Refer to the primary case's report for the procedure summary. Eslie Otoole CARDIAC CATH ORDERAB LES * LEFT HEART CATH, PERCUTANEOUS CORONARY INTERVENTION (12/08/2022 15:47 EDT) Anatomical Region Laterality Modality Tour Guide 12/08/2022 14:1 6 EDT Narrative 12/12/2022 10:05 EDT [address]iology [address] [place] [id number] Catheterization Laboratory Study Patient: Fortunato Hart M ? Study Date: ?12/08/2022 ?Accession #: ? [id number] : ? 1950 Referring: Elsie Otoole Diagnostic [...] Chest pain. Dyspnea. Nonsustained ventricular ?? tachycardia. Xnc-JD-rwbjkplc myocardial infarction. Aortic stenosis. ?? Cerebrovascular disease. [...] HISTORY: Chest pain. ??Dyspnea. ??Nonsustained ventricular tachycardia. Xdy-LP-mrgoirqb myocardial infarction. ??Aortic stenosis. Cerebrovascular disease. ??PMH: [...] 4. Right radial artery access. A 6FR/.021 [place] Sheath Slender sheath ?? was advanced into [...] Edgardo Ha MD - 12/12/2022 Cardiology [address] [place] [address] Catheterization Laboratory Study Patient: Fortunato Hart M [...] indications: Chest pain. Dyspnea. Nonsustained ventricular tachycardia. Fcq-QH-loczewqa myocardial infarction. Aortic stenosis. Cerebrovascular disease. 2. [...] HISTORY: Chest pain. Dyspnea. Nonsustained ventricular tachycardia. Qai-DR-bejfoczd myocardial infarction. Aortic stenosis. Cerebrovascular disease. PMH: [...] 4. Right radial artery access. A 6FR/.021 Gil[place] Sheath Slender sheath was advanced into the [...] 13:01 EDT) 12/08/2022 13:0 1 EDT Narrative [facility] EKG - 12/26/2022 14:49 EDT ? [facility] ? Test Date: ?2022-12-08 Pat Name: ? FORTUNATO TANNER ?Department: ?? [place] [address] ? Room: ? CL Gender: ? Female ? 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 [id number] : ?1950 ? Requested By: DELL LOPEZ [facility] Order Number: [id number] ? Reading MD: ?? REILLY DUQUE MD PhD ? Measurements Intervals ?[place] ? Rate: ? 49 ? P: ? OK: ? 0 ?QRS: ?84 QRSD: ? 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 Eddie Damon CARDIAC ECG ORDERAB LES [facility] * (ABNORMAL) POCT GLUCOSE, INTERFACED (12/08/2022 12:21 EDT) Glucose, POC 132(H) 70 - 100 mg/dL 12/08/2022 12:23 EDT [facility] HN LAB POC COMMENT (GLUCOSE) Test Performed by Nursing Services 12/08/2022 12:23 EDT [facility] Blood CAPILLARY BLOOD / Unknown 12/08/2022 12:21 EDT 12/08/2022 12:22 EDT Darion Tinajero MD POINT OF CARE TEST O RDERABLES Performing Organization Address [facility] Co de Phone Number [facility] [address] [place] [address] * ECG REPORT - SCANNED (12/08/2022 12:18 EDT) 12/08/2022 12:1 8 EDT Scan 2 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 PROCEDURE/MINOR CROW GICAL ORDERABLES * HEPARIN LEVEL - UNFRACTIONATED HEPARIN (12/08/2022 6:02 EDT) Heparin Level-UFH 0.56 Therapeutic Range: 0.30 - 0.70 IU/mL 12/08/2022 6:41 EDT [facility] Comment:Unfractionated hepar in therapeutic range [...] & PF4 ORD ERABLES Performing Organization Address City/[facility]/ZIP Co de Phone Number [facility] [address] [place] [address] * MAGNESIUM (12/08/2022 6:02 EDT) Pathologist [facility] Magnesium 2.0 1.7 - 2.8 mg/dL 12/08/2022 7:10 [facility] Blood VENOUS BLOOD / Unknown Venipuncture / Unknown 12/08/2022 6:02 EDT 12/08/2022 6:40 EDT Vikash Guzman MD CHEMISTRY & BLOOD GA S ORDERABLES [facility] [address] [place] [address] * (ABNORMAL) BASIC METABOLIC PANEL (BMP) (12/08/2022 6:02 EDT) Pathologist [facility] Sodium 139 136 - 145 mmol/L 12/08/2022 7:10 [facility] Potassium 4.2 3.5 - 5.0 mmol/L 12/08/2022 7:10 [facility] Chloride 107 96 - 110 mmol/L 12/08/2022 7:10 [facility] CO2 Total 20(L) 22 - 32 mmol/L 12/08/2022 7:10 [facility] Anion Gap 12 5 - 14 mmol/L 12/08/2022 7:10 [facility] Glucose 188(H) 70 - 100 mg/dl 12/08/2022 7:10 [facility] Calcium 10.4 8.5 - 10.5 mg/dL 12/08/2022 7:10 [facility] BUN 14 10 - 26 mg/dL 12/08/2022 7:10 [facility] Creatinine 0.96 0.52 - 1.04 mg/dL 12/08/2022 7:10 [facility] eGFR 64 >60 mL/min/1.73 m2 12/08/2022 7:10 [facility] Blood VENOUS BLOOD / Unknown Venipuncture / Unknown 12/08/2022 6:02 EDT 12/08/2022 6:40 EDT Darion Tinajero MD CHEMISTRY & BLOOD GA S ORDERABLES [facility] [address] [place] [address] * (ABNORMAL) COMPLETE BLOOD COUNT (12/08/2022 6:02 EDT) WBC 6.56 4.00 - 12.40 K/cmm 12/08/2022 6:31 EDT [facility] RBC 3.80(L) 3.86 - 5.04 M/cmm 12/08/2022 6:31 [facility] Hemoglobin 9.9(L) 11.6 - 15.2 g/dL 12/08/2022 6:31 [facility] HCT 31.4(L) 34.9 - 44.4 % 12/08/2022 6:31 [facility] MCV 83 81 - 98 fL 12/08/2022 6:31 [facility] MCH 26.1(L) 26.7 - 33.3 pg 12/08/2022 6:31 [facility] MCHC 31.5(L) 32.1 - 35.9 g/dL 12/08/2022 6:31 [facility] RDW-CV 15.3(H) <14.7 % 12/08/2022 6:31 [facility] RDW-SD 45.6 <50.4 fl 12/08/2022 6:31 [facility] PLT 431(H) 141 - 377 K/cmm 12/08/2022 6:31 [facility] MPV 10.4 9.5 - 12.7 fL 12/08/2022 6:31 [facility] Blood VENOUS BLOOD / Unknown Venipuncture / Unknown 12/08/2022 6:02 EDT 12/08/2022 6:19 EDT Darion Tinajero MD HEMATOLOGY & PF4 ORD ERABLES [facility] [address] [place] [address] * (ABNORMAL) POCT GLUCOSE, INTERFACED (12/08/2022 6:00 EDT) Glucose, POC 193(H) 70 - 100 mg/dL 12/08/2022 6:01 EDT [facility] HN LAB POC COMMENT (GLUCOSE) Test Performed by Nursing Services 12/08/2022 6:01 EDT [facility] Blood CAPILLARY BLOOD / Unknown 12/08/2022 6:00 EDT 12/08/2022 6:01 EDT Darion Tinajero MD POINT OF CARE TEST O RDERABLES Performing Organization Address City/[facility]/ZIP Co de Phone Number [facility] [address] [place] [address] * (ABNORMAL) POCT GLUCOSE, INTERFACED (12/08/2022 0:26 EDT) Glucose, POC 173(H) 70 - 100 mg/dL 12/08/2022 0:27 EDT [facility] HN LAB POC COMMENT (GLUCOSE) Test Performed by Nursing Services 12/08/2022 0:27 EDT [facility] Blood CAPILLARY BLOOD / Unknown 12/08/2022 0:26 EDT 12/08/2022 0:27 EDT Darion Tinajero MD POINT OF CARE TEST O RDERABLES [facility] [address] [place] [address] * (ABNORMAL) POCT GLUCOSE, INTERFACED (12/07/2022 21:11 EDT) Glucose, POC 152(H) 70 - 100 mg/dL 12/07/2022 21:12 EDT [facility] HN LAB POC COMMENT (GLUCOSE) Test Performed by Nursing Services 12/07/2022 21:12 EDT [facility] Blood CAPILLARY BLOOD / Unknown 12/07/2022 21:11 EDT 12/07/2022 21:12 EDT Von Walters MD POINT OF CARE TEST ORDERABLES Performing Organization Address [facility]/ZIP Co de Phone Number [facility] [address] [place] [address] * (ABNORMAL) POCT GLUCOSE, INTERFACED (12/07/2022 16:32 EDT) Glucose, POC 123(H) 70 - 100 mg/dL 12/07/2022 16:33 EDT [facility] HN LAB POC COMMENT (GLUCOSE) Test Performed by Nursing Services 12/07/2022 16:33 EDT [facility] Blood CAPILLARY BLOOD / Unknown 12/07/2022 16:32 EDT 12/07/2022 16:33 EDT Darion Tinajero MD POINT OF CARE TEST O RDERABLES Performing Organization Address City/[facility]/ZIP Co de Phone Number [facility] [address] [place] [address] * NM CARD PET PHARM MULT STUDIES [...] Disease presenting as a direct transfer from [facility] fpr NSTEMI. Today for NM PET, without [...] CT finding(s): small pericardial effusion. Myocardial Flow [place] The myocardial flow reserve was 1.89 for [...] using independent software and evaluated by the radiologist/bran mixer. Images acquired at rest and post stress [...] (ABNORMAL) POCT GLUCOSE, INTERFACED (12/07/2022 13:19 EDT) [facility] [place] Glucose, POC 140(H) 70 - 100 mg/dL 12/07/2022 13:21 EDT [facility] HN LAB POC COMMENT (GLUCOSE) Test Performed by Nursing Services 12/07/2022 13:21 EDT [facility] Blood CAPILLARY BLOOD / Unknown 12/07/2022 13:19 EDT 12/07/2022 13:21 EDT Darion Tinajero MD POINT OF CARE TEST O RDERABLES [facility] [address] [place] [address] * HEPARIN LEVEL - UNFRACTIONATED HEPARIN (12/07/2022 6:41 EDT) [facility] [place] Heparin Level-UFH 0.65 Therapeutic Range: 0.30 - 0.70 IU/mL 12/07/2022 7:10 EDT [facility] Comment:Unfractionated hepar in therapeutic range [...] & PF4 ORD ERABLES Performing Organization Address City/[facility] Co de Phone Number [facility] [address] [place] [address] * MAGNESIUM (12/07/2022 6:41 EDT) Magnesium 1.9 1.7 - 2.8 mg/dL 12/07/2022 7:24 EDT [facility] Blood VENOUS BLOOD / Unknown Venipuncture / Unknown 12/07/2022 6:41 EDT 12/07/2022 6:55 EDT Vikash Guzman MD CHEMISTRY & BLOOD GA S ORDERABLES Performing Organization Address [facility] Co de Phone Number [facility] [address] [place] [address] * (ABNORMAL) BASIC METABOLIC PANEL (BMP) (12/07/2022 6:41 EDT) Sodium 137 136 - 145 mmol/L 12/07/2022 7:24 EDT [facility] Potassium 4.0 3.5 - 5.0 mmol/L 12/07/2022 7:24 T [facility] Chloride 109 96 - 110 mmol/L 12/07/2022 7:24 T [facility] CO2 Total 20(L) 22 - 32 mmol/L 12/07/2022 7:24 T [facility] Anion Gap 8 5 - 14 mmol/L 12/07/2022 7:24 [facility] Glucose 167(H) 70 - 100 mg/dl 12/07/2022 7:24 T [facility] Calcium 10.1 8.5 - 10.5 mg/dL 12/07/2022 7:24 T [facility] BUN 14 10 - 26 mg/dL 12/07/2022 7:24 T [facility] Creatinine 0.94 0.52 - 1.04 mg/dL 12/07/2022 7:24 EDT [facility] eGFR 65 >60 mL/min/1.73 m2 12/07/2022 7:24 [facility] Blood VENOUS BLOOD / Unknown Venipuncture / Unknown 12/07/2022 6:41 EDT 12/07/2022 6:55 EDT Darion Tinajero MD CHEMISTRY & BLOOD GA S ORDERABLES [facility] [address] [place] [address] * (ABNORMAL) COMPLETE BLOOD COUNT (12/07/2022 6:41 EDT) WBC 7.35 4.00 - 12.40 K/cmm 12/07/2022 7:03 [facility] RBC 3.43(L) 3.86 - 5.04 M/cmm 12/07/2022 7:03 [facility] Hemoglobin 9.1(L) 11.6 - 15.2 g/dL 12/07/2022 7:03 [facility] HCT 28.4(L) 34.9 - 44.4 % 12/07/2022 7:03 [facility] MCV 83 81 - 98 fL 12/07/2022 7:03 [facility] MCH 26.5(L) 26.7 - 33.3 pg 12/07/2022 7:03 [facility] MCHC 32.0(L) 32.1 - 35.9 g/dL 12/07/2022 7:03 [facility] RDW-CV 15.1(H) <14.7 % 12/07/2022 7:03 [facility] RDW-SD 44.7 <50.4 fl 12/07/2022 7:03 [facility] PLT 401(H) 141 - 377 K/cmm 12/07/2022 7:03 [facility] MPV 10.0 9.5 - 12.7 fL 12/07/2022 7:03 EDT [facility] Blood VENOUS BLOOD / Unknown Venipuncture / Unknown 12/07/2022 6:41 EDT 12/07/2022 6:54 EDT Darion Tinajero MD HEMATOLOGY & PF4 ORD ERABLES Performing Organization Address City/[facility]/ZIP Co de Phone Number [facility] [address] [place] [address] * (ABNORMAL) POCT GLUCOSE, INTERFACED (12/07/2022 6:09 EDT) Glucose, POC 167(H) 70 - 100 mg/dL 12/07/2022 6:12 EDT [facility] HN LAB POC COMMENT (GLUCOSE) Test Performed by Nursing Services 12/07/2022 6:12 EDT [facility] Blood CAPILLARY BLOOD / Unknown 12/07/2022 6:09 EDT 12/07/2022 6:12 EDT Darion Tinajero MD POINT OF CARE TEST O RDERALASHELL Performing Organization Address [facility] Co de Phone Number [facility] [address] [place] [address] * (ABNORMAL) POCT GLUCOSE, INTERFACED (12/06/2022 21:14 EDT) Glucose, POC 183(H) 70 - 100 mg/dL 12/06/2022 21:15 EDT [facility] HN LAB POC COMMENT (GLUCOSE) Test Performed by Nursing Services 12/06/2022 21:15 EDT [facility] Blood CAPILLARY BLOOD / Unknown 12/06/2022 21:14 EDT 12/06/2022 21:15 EDT Darion Tinajero MD POINT OF CARE TEST O RDERABLES Performing Organization Address City/[facility]/ZIP Co de Phone Number [facility] [address] [place] [address] * (ABNORMAL) POCT GLUCOSE, INTERFACED (12/06/2022 16:36 EDT) Glucose, POC 172(H) 70 - 100 mg/dL 12/06/2022 16:37 EDT [facility] HN LAB POC COMMENT (GLUCOSE) Test Performed by Nursing Services 12/06/2022 16:37 EDT [facility] Blood CAPILLARY BLOOD / Unknown 12/06/2022 16:36 EDT 12/06/2022 16:37 EDT Darion Tinajero MD POINT OF CARE TEST O CHRISERALASHELL [facility] [address] [place] [address] * (ABNORMAL) POCT GLUCOSE, INTERFACED (12/06/2022 13:26 EDT) Glucose, POC 163(H) 70 - 100 mg/dL 12/06/2022 13:29 EDT [facility] HN LAB POC COMMENT (GLUCOSE) Test Performed by Nursing Services 12/06/2022 13:29 EDT [facility] Blood CAPILLARY BLOOD / Unknown 12/06/2022 13:26 EDT 12/06/2022 13:29 EDT Randy Sebastian MD POINT OF CARE TEST O HERNÁN [facility] [address] [place] [address] * (ABNORMAL) POCT GLUCOSE, INTERFACED (12/06/2022 12:17 EDT) Glucose, POC 160(H) 70 - 100 mg/dL 12/06/2022 12:19 EDT [facility] HN LAB POC COMMENT (GLUCOSE) Test Performed by Nursing Services 12/06/2022 12:19 EDT [facility] Blood CAPILLARY BLOOD / Unknown 12/06/2022 12:17 EDT 12/06/2022 12:18 EDT Darion Tinajero MD POINT OF CARE TEST O RDERABLES Performing Organization Address City/[facility]/ZIP Co de Phone Number [facility] [address] [place] [address] * HEPARIN LEVEL - UNFRACTIONATED HEPARIN (12/06/2022 12:09 EDT) Heparin Level-UFH 0.70 Therapeutic Range: 0.30 - 0.70 IU/mL 12/06/2022 12:37 EDT [facility] Comment:Unfractionated hepar in therapeutic range [...] & PF4 ORD ERABLES Performing Organization Address [facility] Co de Phone Number [facility] [address] [place] [address] * (ABNORMAL) POCT GLUCOSE, INTERFACED (12/06/2022 9:16 EDT) Glucose, POC 180(H) 70 - 100 mg/dL 12/06/2022 9:17 EDT [facility] HN LAB POC COMMENT (GLUCOSE) Test Performed by Nursing Services 12/06/2022 9:17 EDT [facility] Blood CAPILLARY BLOOD / Unknown 12/06/2022 9:16 EDT 12/06/2022 9:17 EDT Darion Tinajero MD POINT OF CARE TEST O RDERABLES Performing Organization Address City/[facility]/ZIP Co de Phone Number [facility] [address] [place] [address] * (ABNORMAL) POCT GLUCOSE, INTERFACED (12/06/2022 8:12 EDT) Pathologist [facility] Glucose, POC 179(H) 70 - 100 mg/dL 12/06/2022 8:19 EDT [facility] HN LAB POC COMMENT (GLUCOSE) Test Performed by Nursing Services 12/06/2022 8:19 EDT [facility] Blood CAPILLARY BLOOD / Unknown 12/06/2022 8:12 EDT 12/06/2022 8:19 EDT Darion Tinajero MD POINT OF CARE TEST O RDERABLES [facility] [address] [place] [address] * MAGNESIUM (12/06/2022 6:28 EDT) [facility] [place] Magnesium 2.0 1.7 - 2.8 mg/dL 12/06/2022 7:51 EDT [facility] Blood VENOUS BLOOD / Unknown Venipuncture / Unknown 12/06/2022 6:28 EDT 12/06/2022 7:18 EDT Vikash Guzman MD CHEMISTRY & BLOOD GA S ORDERABLES [facility] [address] [place] [address] * (ABNORMAL) BASIC METABOLIC PANEL (BMP) (12/06/2022 6:28 EDT) [facility] [place] Sodium 139 136 - 145 mmol/L 12/06/2022 7:51 EDT [facility] Potassium 3.8 3.5 - 5.0 mmol/L 12/06/2022 7:51 EDT [facility] Chloride 108 96 - 110 mmol/L 12/06/2022 7:51 EDT [facility] CO2 Total 20(L) 22 - 32 mmol/L 12/06/2022 7:51 [facility] Anion Gap 11 5 - 14 mmol/L 12/06/2022 7:51 [facility] Glucose 177(H) 70 - 100 mg/dl 12/06/2022 7:51 [facility] Calcium 9.9 8.5 - 10.5 mg/dL 12/06/2022 7:51 [facility] BUN 15 10 - 26 mg/dL 12/06/2022 7:51 [facility] Creatinine 0.89 0.52 - 1.04 mg/dL 12/06/2022 7:51 [facility] eGFR 70 >60 mL/min/1.73 m2 12/06/2022 7:51 [facility] Blood VENOUS BLOOD / Unknown Venipuncture / Unknown 12/06/2022 6:28 EDT 12/06/2022 7:18 EDT Darion Tinajero MD CHEMISTRY & BLOOD GA S ORDERABLES [facility] [address] [place] [address] * (ABNORMAL) COMPLETE BLOOD COUNT (12/06/2022 6:28 EDT) WBC 7.20 4.00 - 12.40 K/cmm 12/06/2022 7:33 [facility] RBC 3.58(L) 3.86 - 5.04 M/cmm 12/06/2022 7:33 [facility] Hemoglobin 9.4(L) 11.6 - 15.2 g/dL 12/06/2022 7:33 [facility] HCT 29.0(L) 34.9 - 44.4 % 12/06/2022 7:33 [facility] MCV 81 81 - 98 fL 12/06/2022 7:33 [facility] MCH 26.3(L) 26.7 - 33.3 pg 12/06/2022 7:33 [facility] MCHC 32.4 32.1 - 35.9 g/dL 12/06/2022 7:33 EDT [facility] RDW-CV 15.0(H) <14.7 % 12/06/2022 7:33 EDT [facility] RDW-SD 43.2 <50.4 fl 12/06/2022 7:33 EDT [facility] PLT 297 141 - 377 K/cmm 12/06/2022 7:33 EDT [facility] MPV 12.2 9.5 - 12.7 fL 12/06/2022 7:33 EDT [facility] Blood VENOUS BLOOD / Unknown Venipuncture / Unknown 12/06/2022 6:28 EDT 12/06/2022 7:17 EDT Darion Tinajero MD HEMATOLOGY & PF4 ORD ERABLES Performing Organization Address [facility] Co de Phone Number [facility] [address] [place] [address] * HEPARIN LEVEL - UNFRACTIONATED HEPARIN (12/06/2022 0:07 EDT) Heparin Level-UFH 0.62 Therapeutic Range: 0.30 - 0.70 IU/mL 12/06/2022 0:34 EDT [facility] Comment:Unfractionated hepar in therapeutic range [...] & PF4 ORD ERABLES Performing Organization Address City/[facility]/ZIP Co de Phone Number [facility] [address] [place] [address] * (ABNORMAL) POCT GLUCOSE, INTERFACED (12/05/2022 21:08 EDT) Glucose, POC 288(H) 70 - 100 mg/dL 12/05/2022 21:10 EDT [facility] HN LAB POC COMMENT (GLUCOSE) Test Performed by Nursing Services 12/05/2022 21:10 EDT [facility] Blood CAPILLARY BLOOD / Unknown 12/05/2022 21:08 EDT 12/05/2022 21:10 EDT Darion Tinajero MD POINT OF CARE TEST O HERNÁN [facility] [address] [place] [address] * (ABNORMAL) POCT GLUCOSE, INTERFACED (12/05/2022 16:28 EDT) Glucose, POC 107(H) 70 - 100 mg/dL 12/05/2022 16:29 EDT [facility] HN LAB POC COMMENT (GLUCOSE) Test Performed by Nursing Services 12/05/2022 16:29 EDT [facility] Blood CAPILLARY BLOOD / Unknown 12/05/2022 16:28 EDT 12/05/2022 16:29 EDT Darion Tinajero MD POINT OF CARE TEST O HERNÁN Performing Organization Address City/[facility]/ZIP Co de Phone Number [facility] [address] [place] [address] * HEPARIN LEVEL - UNFRACTIONATED HEPARIN (12/05/2022 12:18 EDT) Heparin Level-UFH 0.71 Therapeutic Range: 0.30 - 0.70 IU/mL 12/05/2022 12:41 EDT [facility] Comment:Unfractionated hepar in therapeutic range [...] Guzman MD HEMATOLOGY & PF4 ORD ERABLES [facility] [address] [place] [address] * (ABNORMAL) BASIC METABOLIC PANEL (BMP) (12/05/2022 12:18 EDT) Sodium 140 136 - 145 mmol/L 12/05/2022 13:12 [facility] Potassium 3.9 3.5 - 5.0 mmol/L 12/05/2022 13:12 [facility] Chloride 104 96 - 110 mmol/L 12/05/2022 13:12 [facility] CO2 Total 25 22 - 32 mmol/L 12/05/2022 13:12 [facility] Anion Gap 11 5 - 14 mmol/L 12/05/2022 13:12 [facility] Glucose 173(H) 70 - 100 mg/dl 12/05/2022 13:12 [facility] Calcium 10.5 8.5 - 10.5 mg/dL 12/05/2022 13:12 [facility] BUN 15 10 - 26 mg/dL 12/05/2022 13:12 [facility] Creatinine 0.89 0.52 - 1.04 mg/dL 12/05/2022 13:12 [facility] eGFR 70 >60 mL/min/1.73 m2 12/05/2022 13:12 [facility] Blood VENOUS BLOOD / Unknown Venipuncture / Unknown 12/05/2022 12:18 EDT 12/05/2022 12:25 EDT Darion Tinajero MD CHEMISTRY & BLOOD GA S ORDERABLES [facility] [address] [place] [address] * (ABNORMAL) COMPLETE BLOOD COUNT (12/05/2022 12:18 EDT) WBC 7.00 4.00 - 12.40 K/cmm 12/05/2022 12:32 EDT [facility] RBC 3.82(L) 3.86 - 5.04 M/cmm 12/05/2022 12:32 EDT [facility] Hemoglobin 10.2(L) 11.6 - 15.2 g/dL 12/05/2022 12:32 T [facility] HCT 31.9(L) 34.9 - 44.4 % 12/05/2022 12:32 [facility] MCV 84 81 - 98 fL 12/05/2022 12:32 EDT [facility] MCH 26.7 26.7 - 33.3 pg 12/05/2022 12:32 [facility] MCHC 32.0(L) 32.1 - 35.9 g/dL 12/05/2022 12:32 [facility] RDW-CV 14.9(H) <14.7 % 12/05/2022 12:32 [facility] RDW-SD 44.8 <50.4 fl 12/05/2022 12:32 EDT [facility] PLT 467(H) 141 - 377 K/cmm 12/05/2022 12:32 [facility] MPV 10.1 9.5 - 12.7 fL 12/05/2022 12:32 [facility] Blood VENOUS BLOOD / Unknown Venipuncture / Unknown 12/05/2022 12:18 EDT 12/05/2022 12:25 EDT Darion Tinajero MD HEMATOLOGY & PF4 ORD ERABLES [facility] [address] [place] [address] * (ABNORMAL) POCT GLUCOSE, INTERFACED (12/05/2022 11:34 EDT) Glucose, POC 198(H) 70 - 100 mg/dL 12/05/2022 11:35 EDT [facility] HN LAB POC COMMENT (GLUCOSE) Test Performed by Nursing Services 12/05/2022 11:35 EDT [facility] Blood CAPILLARY BLOOD / Unknown 12/05/2022 11:34 EDT 12/05/2022 11:35 EDT Darion Tinajero MD POINT OF CARE TEST O RDERABLES Performing Organization Address [facility] Co de Phone Number [facility] [address] [place] [address] * HEPARIN LEVEL - UNFRACTIONATED HEPARIN (12/05/2022 2:48 EDT) [facility] [place] Heparin Level-UFH 0.89 Therapeutic Range: 0.30 - 0.70 IU/mL 12/05/2022 3:05 EDT [facility] Comment:Unfractionated hepar in therapeutic range [...] & PF4 ORD ERABLES Performing Organization Address City/[facility]/ZIP Co de Phone Number [facility] [address] [place] [address] * (ABNORMAL) POCT GLUCOSE, INTERFACED (12/05/2022 0:07 EDT) Glucose, POC 187(H) 70 - 100 mg/dL 12/05/2022 0:08 EDT [facility] HN LAB POC COMMENT (GLUCOSE) Test Performed by Nursing Services 12/05/2022 0:08 EDT [facility] Blood CAPILLARY BLOOD / Unknown 12/05/2022 0:07 EDT 12/05/2022 0:08 EDT Randy Sebastian MD POINT OF CARE TEST O RDERALASHELL Performing Organization Address [facility] Co de Phone Number [facility] [address] [place] [address] * (ABNORMAL) POCT GLUCOSE, INTERFACED (12/04/2022 20:36 EDT) Glucose, POC 267(H) 70 - 100 mg/dL 12/04/2022 20:37 EDT [facility] HN LAB POC COMMENT (GLUCOSE) Test Performed by Nursing Services 12/04/2022 20:37 EDT [facility] Blood CAPILLARY BLOOD / Unknown 12/04/2022 20:36 EDT 12/04/2022 20:36 EDT Randy Sebastian MD POINT OF CARE TEST O HERNÁN Performing Organization Address [facility] Co de Phone Number [facility] [address] [place] [address] * (ABNORMAL) POCT GLUCOSE, INTERFACED (12/04/2022 19:41 EDT) Glucose, POC 190(H) 70 - 100 mg/dL 12/04/2022 19:42 EDT [facility] HN LAB POC COMMENT (GLUCOSE) Test Performed by Nursing Services 12/04/2022 19:42 EDT [facility] Blood CAPILLARY BLOOD / Unknown 12/04/2022 19:41 EDT 12/04/2022 19:42 EDT Darion Tinajero MD POINT OF CARE TEST O RDERABLES Performing Organization Address City/[facility]/ZIP Co de Phone Number [facility] [address] [place] [address] * (ABNORMAL) POCT GLUCOSE, INTERFACED (12/04/2022 18:03 EDT) Glucose, POC 129(H) 70 - 100 mg/dL 12/04/2022 18:04 EDT [facility] HN LAB POC COMMENT (GLUCOSE) Test Performed by Nursing Services 12/04/2022 18:04 EDT [facility] Blood CAPILLARY BLOOD / Unknown 12/04/2022 18:03 EDT 12/04/2022 18:04 EDT Darion Tinajero MD POINT OF CARE TEST O RDERABLES Performing Organization Address [facility] Co de Phone Number [facility] [address] [place] [address] * MR CARDIAC W WO CONTRAST W [...] - UNFRACTIONATED HEPARIN (12/04/2022 12:40 EDT) Pathologist [facility] [place] Heparin Level-UFH 1.84(HH) Therapeutic Range: 0.30 - 0.70 IU/mL 12/04/2022 13:06 EDT [facility] Comment: Recent or concurrent use [...] Sebastian MD HEMATOLOGY & PF4 ORD ERABLES [facility] [address] [place] [address] * (ABNORMAL) POCT GLUCOSE, INTERFACED (12/04/2022 12:26 EDT) Pathologist [facility] Glucose, POC 164(H) 70 - 100 mg/dL 12/04/2022 12:28 EDT [facility] HN LAB POC COMMENT (GLUCOSE) Test Performed by Nursing Services 12/04/2022 12:28 EDT [facility] Blood CAPILLARY BLOOD / Unknown 12/04/2022 12:26 EDT 12/04/2022 12:28 EDT Darion Tinajero MD POINT OF CARE TEST O RDERABLES [facility] [address] [place] [address] * (ABNORMAL) POCT GLUCOSE, INTERFACED (12/04/2022 7:55 EDT) Glucose, POC 189(H) 70 - 100 mg/dL 12/04/2022 7:57 EDT [facility] HN LAB POC COMMENT (GLUCOSE) Test Performed by Nursing Services 12/04/2022 7:57 EDT [facility] Blood CAPILLARY BLOOD / Unknown 12/04/2022 7:55 EDT 12/04/2022 7:57 EDT Darion Tinajero MD POINT OF CARE TEST O RDERABLES [facility] [address] [place] [address] * (ABNORMAL) BASIC METABOLIC PANEL (BMP) (12/04/2022 7:26 EDT) [facility] [place] Sodium 139 136 - 145 mmol/L 12/04/2022 8:31 [facility] Potassium 3.9 3.5 - 5.0 mmol/L 12/04/2022 8:31 [facility] Chloride 104 96 - 110 mmol/L 12/04/2022 8:31 [facility] CO2 Total 21(L) 22 - 32 mmol/L 12/04/2022 8:31 [facility] Anion Gap 14 5 - 14 mmol/L 12/04/2022 8:31 [facility] Glucose 229(H) 70 - 100 mg/dl 12/04/2022 8:31 [facility] Calcium 10.3 8.5 - 10.5 mg/dL 12/04/2022 8:31 [facility] BUN 18 10 - 26 mg/dL 12/04/2022 8:31 [facility] Creatinine 0.90 0.52 - 1.04 mg/dL 12/04/2022 8:31 [facility] eGFR 69 >60 mL/min/1.73 m2 12/04/2022 8:31 [facility] Blood VENOUS BLOOD / Unknown Venipuncture / Unknown 12/04/2022 7:26 EDT 12/04/2022 8:03 EDT Darion Tinajero MD CHEMISTRY & BLOOD GA S ORDERABLES [facility] [address] [place] [address] * (ABNORMAL) COMPLETE BLOOD COUNT (12/04/2022 7:26 EDT) WBC 8.02 4.00 - 12.40 K/cmm 12/04/2022 8:16 [facility] RBC 3.67(L) 3.86 - 5.04 M/cmm 12/04/2022 8:16 [facility] Hemoglobin 9.8(L) 11.6 - 15.2 g/dL 12/04/2022 8:16 [facility] HCT 30.4(L) 34.9 - 44.4 % 12/04/2022 8:16 [facility] MCV 83 81 - 98 fL 12/04/2022 8:16 [facility] MCH 26.7 26.7 - 33.3 pg 12/04/2022 8:16 [facility] MCHC 32.2 32.1 - 35.9 g/dL 12/04/2022 8:16 [facility] RDW-CV 14.9(H) <14.7 % 12/04/2022 8:16 [facility] RDW-SD 44.5 <50.4 fl 12/04/2022 8:16 [facility] PLT 455(H) 141 - 377 K/cmm 12/04/2022 8:16 [facility] MPV 10.7 9.5 - 12.7 fL 12/04/2022 8:16 [facility] Blood VENOUS BLOOD / Unknown Venipuncture / Unknown 12/04/2022 7:26 EDT 12/04/2022 8:01 EDT Darion Tinajero MD HEMATOLOGY & PF4 ORD ERABLES [facility] [address] [place] [address] * (ABNORMAL) VITAMIN D (25,OH) (12/04/2022 7:26 EDT) 25OH Vitamin D Tot 21(L) 30 - 100 ng/mL 12/04/2022 12:18 EDT [facility] Comment: Vitamin D 25,OH Interpretive Ranges: Deficiency: ??<10.0 ng/mL Insufficiency: ??10.0 - 30.0 ng/mL Sufficiency: ??30.0 - 100.0 ng/mL Toxicity: ??>100.0 ng/mL Blood VENOUS BLOOD / Unknown Venipuncture / Unknown 12/04/2022 7:26 EDT 12/04/2022 8:03 EDT Darion Tinajero MD CHEMISTRY & BLOOD GA S ORDERABLES Performing Organization Address [facility] Co de Phone Number [facility] [address] [place] [address] * (ABNORMAL) LIPID PROFILE (INCLUDES CHOLESTEROL, TRIGLYCERIDES, HDL, LDL) (12/03/2022 23:53 EDT) Cholesterol 107 <200 mg/dL 12/04/2022 0:16 EDT [facility] Comment:Note that therapeuti c goals will differ between patients based on cardiac risk factors and current medical therapy. HDL 40(L) >=50 mg/dL 12/04/2022 0:16 EDT [facility] Comment:Note that therapeuti c goals will differ between patients based on cardiac risk factors and current medical therapy. LDL, Calculated 29 <160 mg/dL 0:16 EDT [facility] Comment:Note that therapeuti c goals will differ between patients based on cardiac risk factors and current medical therapy. Triglyceride 188(H) <=150 mg/dL 12/04/2022 0:16 EDT [facility] Comment:Note that therapeuti c goals will differ between patients based on cardiac risk factors and current medical therapy. Chol/HDL Ratio 2.7 See Note 12/04/2022 0:16 EDT [facility] Comment:No reference range h as been established for CHOL/HDL ratio. Non HDL Cholesterol 67 <160 mg/dL 12/04/2022 0:16 EDT [facility] Comment:Note that therapeuti c goals will differ between patients based on cardiac risk factors and current medical therapy. Blood VENOUS BLOOD / Unknown Venipuncture / Unknown 12/03/2022 23:53 EDT 12/04/2022 0:00 EDT Darion Tinajero MD CHEMISTRY & BLOOD GA S ORDERABLES [facility] [address] [place] [address] * (ABNORMAL) HEPARIN LEVEL - UNFRACTIONATED HEPARIN (12/03/2022 23:53 EDT) Heparin Level-UFH 1.52(HH) Therapeutic Range: 0.30 - 0.70 IU/mL 12/04/2022 0:24 EDT [facility] Comment: Recent or concurrent use [...] & PF4 ORD ERABLES Performing Organization Address [facility]/ZIP Co de Phone Number [facility] [address] [place] [address] * (ABNORMAL) TROPONIN I (12/03/2022 23:53 EDT) Troponin I (ng/mL) 0.105(H) <0.034 ng/mL 12/04/2022 0:32 EDT [facility] Blood VENOUS BLOOD / Unknown Venipuncture / Unknown 12/03/2022 23:53 EDT 12/04/2022 0:00 EDT Narrative [facility] - 12/04/2022 0:32 EDT The results of this assay can be falsely lowered due to the consumption of Biotin. Darion Tinajero MD CHEMISTRY & BLOOD GA S ORDERABLES Performing Organization Address [facility] Co de Phone Number [facility] LABORATORY SERVICES [address] [place] [address] * MAGNESIUM (12/03/2022 23:11 EDT) Pathologist [facility] Magnesium 1.9 1.7 - 2.8 mg/dL 12/03/2022 23:42 EDT [facility] Comment:Moderate hemolysis i dentified, interpret with caution as results may be affected due to hemolysis. Blood VENOUS BLOOD / Unknown Venipuncture / Unknown 12/03/2022 23:11 EDT 12/03/2022 23:16 EDT Darion Tinajero MD CHEMISTRY & BLOOD GA S ORDERABLES Performing Organization Address [facility] Co de Phone Number [facility] [address] [place] [address] * EKG 12-LEAD (12/03/2022 22:36 EDT) 12/03/2022 22:3 6 EDT Narrative [facility] EKG - 12/08/2022 12:12 EDT ? [facility] ? Test Date: ?2022-12-03 Pat Name: ? FORTUNATO TANNER ?Department: ?? [place] [address] ? Room: ? YA6298 Gender: ? Female ? 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 : ?1950 ? Requested By: MILTON LEYVA Order Number: [id number] ? Reading MD: ?? DENICE LOBEL MD ? Measurements Intervals ?[place] ? Rate: ? 79 ? P: ?51 OK: ? 299 ?QRS: ?-20 QRSD: ? 117 [...] Note Denice Nash MD - 12/08/2022 [facility] Test Date: 2022-12-03 Pat Name: FORTUNATO HART Department: [place] [address] Room: 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: : 1950 Requested By: MILTON LEYVA Order Number: [id number] Reading MD: DENICE NASH MD Measurements Intervals [place] Rate: 79 P: 51 OK: 299 QRS: -20 QRSD: 117 T: 145 [...] Darion Tinajero MD CARDIAC ECG ORDERABL ES [facility] EKG documented in this encounter Visit Diagnoses Diagnosis ASCVD (arteriosclerotic cardiovascular disease)- Primary Unspecified cardiovascular disease NSTEMI (non-ST elevated myocardial infarction) ([facility]) Acute myocardial infarction, subendocardial infarction, episode of care unspecified Chest pain, unspecified type Hypertrophic cardiomegaly Duodenal erosion Duodenal ulcer, unspecified as acute or chronic, without hemorrhage, perforation, or obstruction Gastrointestinal hemorrhage, unspecified gastrointestinal hemorrhage type NSTEMI (non-ST elevated myocardial infarction) ([facility]) Acute myocardial infarction, subendocardial infarction, episode of care unspecified Hypertrophic cardiomegaly NSTEMI (non-ST elevated myocardial infarction) ([facility]) Acute myocardial infarction, subendocardial infarction, episode of care unspecified documented in this encounter Admitting Diagnoses Diagnosis NSTEMI (non-ST elevated myocardial infarction) ([facility]) Acute myocardial infarction, subendocardial infarction, episode [...] Provider Hn - Reason: Patient off unit)162 ([facility] Unhold - Provider: Automatic Transfer Provider Hn) [...] Provider Hn - Reason: Patient off unit)162 ([facility] Unhold - Provider: Automatic Transfer Provider Hn)2032 [...] Mikal Murphy RN) 1336 (Given - Provider: oLren Maier RN)1351 ([facility] Hold - Provider: Automatic Transfer Provider Hn - Reason: Patient off unit)1620 ([facility] Unhold - Provider: Automatic Transfer Provider Hn)2325 [...] at 1638, Low Blood Sugar, Routine 1351 ([facility] Hold - Provider: Automatic Transfer Provider Hn - Reason: Patient off unit)1620 ([facility] Unhold - Provider: Automatic Transfer Provider Hn) fentaNYL citrate (PF) injection (CANCELED) PRN, Starting on e 12/08/22 at 1451, Until Wed12/08/22 at 1547, Routine, Intraprocedure 1451 (Given - Provider: Mercedez Woody, JALEN) glucagon injection 1 mg 1 mg, intramuscular, PRN, Starting on Tash 12/03/22 at 2335, Until Wed12/09/22 at 1638, Other, Low blood sugar, Routine 1351 ([facility] Hold - Provider: Automatic Transfer Provider Hn - Reason: Patient off unit)1620 ([facility] Unhold - Provider: Automatic Transfer Provider Hn) [...] 40 mg 1 11/19 polyethylene glycol 3350 (GA RALAX) packet 17 g 1 12/03/2022 senna [...] Date First Orde red Date CASE REQUEST BARREL DRUM CUTTER 1 12/06/2022 documented in this encounter Care Teams Community Health Nurse Supervisor Relationship Specialty Start Date End Date Bryant Crain MD [address] [place] [address] PCP - General 05/04/15 05/17/23 Carlos Ha NP [address] [place] [address] [place] [phone] Consulting Clinician Cardiovascular Disease 09/14/21 documented as of this encounter
--- OUTSIDE RECORDS SUMMARY | 2024-01-12 11:21 | XMS_ITS | Encounter Summary ---
Author Organization [facility] Address [address] [place] [address] Care Team Providers Care Dry Cell Battery Assembler Name Role Phone Bryant Crain MD Primary Care Provider [phone] Carlos Ha QUILTING SUPERVISOR Unavailable [phone] Encounter Details Date Type Department Care [...] Info) Description 03/08/2024 9:30 EDT Ancillary Procedure [facility] Cardiology - [place] [address] [place] [address] 03/08/2024 10:15 EDT Ancillary Procedure [facility] Cardiology - [facility] [address] [facility] [place] [address] 04/05/2024 10:00 EDT Ancillary Procedure [facility] [address] [place] [phone] 04/05/2024 10:00 EDT Office Visit [facility] [address] [place] [phone] Carlos aH NP [address] [place] [phone] documented as of this encounter Visit Diagnoses Not on filedocumented in this encounter Care Teams Dry Cell Battery Assembler Relationship Specialty Start Date End Date Bryant Crain MD [address] [place], [place] [phone] PCP - General 05/04/15 05/17/23 Carlos Ha NP [address] [place] [phone] Consulting Clinician Cardiovascular Disease 09/14/21 documented as of this encounter
--- OUTSIDE RECORDS SUMMARY | 2024-01-12 11:21 | XMS_ITS | Encounter Summary ---
Author Organization [facility] Address [address] [place] [address] Care Team Providers Care Core Man Name Role Phone Bryant Crain MD Primary Care Provider [phone] Carlos Ha POULTRY FARMWORKER Unavailable [phone] Elba Jett MD Primary Care Provider [phone] Reason for Visit * Reason Onset Date Comments Appointment Related 11/27/2022 Encounter Details Date Type Department Care Team (Late st Contact Info) Description 11/27/2022 Telephone [facility] Cardiology - [address] [place] [address] Randy Sebastian MD [address] [place] [phone] Appointment Related Social History Tobacco Use [...] Info) Description 03/08/2024 9:30 EDT Ancillary Procedure [facility] [place]iology [place] [address] 03/08/2024 10:15 EDT Ancillary Procedure [facility] [place] [address] 04/05/2024 10:00 EDT Ancillary Procedure [facility] - [facility] Cardiology Clinic [address] [place] [address] 04/05/2024 10:00 EDT Office Visit [facility] - [facility] Cardiology Clinic [address] [place], [place] [address] Carlos Ha, RAHEEM [address] [phone] documented as of this encounter Visit Diagnoses Not on filedocumented in this encounter Care Teams Core Man Relationship Specialty Start Date End Date Bryant Crain MD [address] [place] [address] PCP - General 05/04/15 05/17/23 Elba Jett MD [address] [place] [phone] PCP - General Family Medicine - Primary Care 05/18/23 Carlos Ha POULTRY FARMWORKER [address] [place] [phone] Consulting Clinician Cardiovascular Disease 09/14/21 documented as of this encounter
--- OUTSIDE RECORDS SUMMARY | 2024-01-12 11:21 | XMS_ITS | Encounter Summary ---
Author Organization [facility] Address [address] [place] [address] Care Team Providers Care Warranty Coordinator Name Role Phone Bryant Crain MD Primary Care Provider [phone] Carlos Ha COUNTER CHECKER Unavailable [phone] Reason for Visit * Reason Onset Date Comments Results 11/24/2022 Encounter Details Date Type Department Care Team (Late st Contact Info) Description 11/24/[address] [facility] Cardiology - [address] [place] [address] Nicole Acosta MD Results Social [...] action taken. NICOLE ACOSTA MD 11/24/2022 14:51 Reeling Operator documented in this encounter Plan of Treatment Upcoming Encounters Date Type Department Care Team (Late st Contact Info) Description 03/08/2024 9:30 EDT Ancillary Procedure [facility] Cardiology - [address] [place] [address] 03/08/2024 10:15 EDT Ancillary Procedure [facility] [place] [address] 04/05/2024 10:00 EDT Ancillary Procedure [facility] Cardiology Clinic [address] [place] [phone] 04/05/2024 10:00 EDT Office Visit [facility] Cardiology Clinic [address] [place] [address] Carlos Ha NP [address] [place] [phone] documented as of this encounter Visit Diagnoses Not on filedocumented in this encounter Care Teams Warranty Coordinator Relationship Specialty Start Date End Date Bryant Crain MD [address] [place], [place] [phone] PCP - General 05/04/15 05/17/23 Carlos Ha NP [address] [place] [address] [phone] Consulting Clinician Cardiovascular Disease 09/14/21 documented as of this encounter
--- OUTSIDE RECORDS SUMMARY | 2024-01-12 11:21 | XMS_ITS | Encounter Summary ---
Author Organization [facility] [place] [facility] Address [address] [place] [address] Care Team Providers Care Shredder/Granulator Operator Name Role Phone Bryant Crain MD Primary Care Provider [phone] Carlos Ha OPERATING COST CLERK Unavailable [phone] Reason for Visit * Reason Onset Date Comments Shortness of Breath 12/01/2022 Chest Pain 12/01/2022 Encounter Details Date Type Department Care Team (Late st Contact Info) Description 12/01/2022 Telephone [facility] - [facility] Cardiology Clinic [address] [place] [phone] Fan Schaefer RN Shortness of Breath; Chest [...] Pt should go to local ED or [facility] with goal to be transferred to [facility] likely for heart cath. [id number] if needed. * Pt is scheduled to see at [facility] and have Cardiac MRI soon. Has been wearing event monitor with episodes of Ventricular Tachycardia and heart block with some pauses Relayed recommendations to patient and : * They are planning on driving to [facility] ED * Advised to call 911 for any concerns * Called report to ED RN at [facility] * Telephone Encounter - Fan Schaefer RN [...] Info) Description 03/08/2024 9:30 EDT Ancillary Procedure [facility] Cardiology - [address] [place] [address] 03/08/2024 10:15 EDT Ancillary Procedure [facility] Cardiology [address] [place], [place] [phone] 04/05/2024 10:00 EDT Ancillary Procedure [facility] Cardiology Clinic [address] [place] [address] 04/05/2024 10:00 EDT Office Visit [facility] Cardiology Clinic [address] [place] [phone] Carlos Ha NP [address] [place] [phone] documented as of this encounter Visit Diagnoses Not on filedocumented in this encounter Care Teams Shredder/Granulator Operator Relationship Specialty Start Date End Date Bryant Crain MD [address] [place] [address] PCP - General 05/04/15 05/17/23 Carlos Ha NP [address] [place] [phone] Consulting Clinician Cardiovascular Disease 09/14/21 documented as of this encounter
--- OUTSIDE RECORDS SUMMARY | 2024-01-12 11:21 | XMS_ITS | Encounter Summary ---
Author Organization [facility] Address [address] [place] [address] Care Team Providers Care Master Hearth Technician Name Role Phone Bryant Crain MD Primary Care Provider [phone] Carlos Ha HIDE INSPECTOR Unavailable Encounter Details Date Type Department Care Team (Late st Contact Info) Description 11/20/2022 9:45 EDT Phlebotomy Only [facility] - Outpatient Phlebotomy Drawing [address] [place] [address] Lab, [facility] Op Phlebotomy Gastrointestinal hemorrhage, unspecified gastrointestinal hemorrhage [...] 03/08/2024 9:30 EDT Ancillary Procedure [facility] Cardiology - [place] [address] [place] [address] 03/08/2024 10:15 EDT Ancillary Procedure [facility] Cardiology [address] [place] [address] 04/05/2024 10:00 EDT Ancillary Procedure [facility] Cardiology Clinic [address] [place] [phone] 04/05/2024 10:00 EDT Office Visit [facility] Cardiology Clinic [address] [place] [phone] Carlos Ha, RAHEEM [address] [place] [address] [place] [phone] documented as of this encounter [...] 34(L) 37 - 170 ??g/dL [facility] Iron Binding Capacity 315 240 - 450 ??g/dL 11/20/2022 15:41 [facility] Transferrin Saturation 11(L) 15 - 45 % 11/20/2022 15:41 [facility] Blood VENOUS BLOOD / Unknown Venipuncture / Unknown 11/20/2022 10:02 EDT 11/20/2022 10:44 EDT Carlos Ha NP CHEMISTRY & BLOOD GA S ORDERABLES Performing Organization Address City/State/[facility] Co de Phone Number [facility] [address] [place] [address] * (ABNORMAL) BASIC METABOLIC PANEL (BMP) (11/20/2022 10:02 EDT) Pathologist [facility] Sodium 139 136 - 145 mmol/L 11/20/2022 [...] EDT 11/20/2022 10:44 EDT Carlos L Dilcia HIDE INSPECTOR CHEMISTRY & BLOOD GA S ORDERABLES Performing Organization Address City/State/[facility] Co de Phone Number [facility] [address] [place] [address] * (ABNORMAL) COMPLETE BLOOD COUNT AND DIFFERENTIAL [...] Ha NP PACKAGES & DNA PROBE ORDERABLES [facility] [address] [place] [address] documented in this encounter Visit Diagnoses Diagnosis Gastrointestinal hemorrhage, unspecified gastrointestinal hemorrhage type Duodenal erosion Duodenal ulcer, unspecified as acute or chronic, without hemorrhage, perforation, or obstruction Esophagitis Esophagitis, unspecified Essential hypertension Unspecified essential hypertension documented in this encounter Care Teams Master Hearth Technician Relationship Specialty Start Date End Date Bryant Crain MD [address] [place], [place] [phone] PCP - General 05/04/15 05/17/23 Carlos Ha NP [address] [place] [address] [address] [place] [phone] Consulting Clinician Cardiovascular Disease 09/14/21 documented as of this encounter
--- OUTSIDE RECORDS SUMMARY | 2024-01-12 11:21 | XMS_ITS | Encounter Summary ---
Author Organization [facility] Address [address] [place] [address] Care Team Providers Care Tube Bender Hand Name Role Phone Bryant Crain MD Primary Care Provider [phone] Carlos Ha IRRIGATIONIST Unavailable [phone] Reason for Visit * Reason Comments Medications Refill Encounter Details Date Type Department Care Team (Late st Contact Info) Description 11/16/2022 Refill [facility] Endocrinology [address] [place] [address] Sarika Zamudio, IRRIGATIONIST [address] [facility] [address] [place] [phone] Medications Refill Social History Tobacco [...] Ancillary Procedure [facility] Cardiology - [address] [address] 03/08/2024 10:15 EDT Ancillary Procedure [facility] Cardiology [place] [address] 04/05/2024 10:00 EDT Ancillary Procedure [facility] Cardiology Clinic [address] [place] [address] 04/05/2024 10:00 EDT Office Visit [facility] Cardiology Clinic [address] [place] [address] Carlos Ha NP [address] [phone] documented as of this encounter Visit Diagnoses Not on filedocumented in this encounter Care Teams Tube Bender Hand Relationship Specialty Start Date End Date Bryant Crain MD [address] [place], [place] [phone] PCP - General 05/04/15 05/17/23 Carlos Ha NP [address] [phone] Consulting Clinician Cardiovascular Disease 09/14/21 documented as of this encounter
--- OUTSIDE RECORDS SUMMARY | 2024-01-12 11:21 | XMS_ITS | Encounter Summary ---
Author Organization [facility] Address [address] [place] [address] Care Team Providers Care Hotel Or Motel Room Service Supervisor Name Role Phone Bryant Crain MD Primary Care Provider [phone] Carlos Ha MERCURY WASHER Unavailable [phone] Reason for Referral * Consult (48 Hrs (Urgent)) - Closed Specialty Diagnoses / Procedures Referred By Contac t Referred To Contact Cardiology Diagnoses Paroxysmal atrial fibrillation (HCC-CMS) Ventricular tachycardia (HCC-CMS) Hypertrophic cardiomyopathy (HCC-CMS) AVB (atrioventricular block) Elevated troponin Carlos Ha NP [address] [facility] [address] [place] [address] Randy Sebastian MD [address] [place] [address] Referral ID Status Reason Start Date Expiration Date V isits Requested Visits Authorized [id number] Closed Specialty Services Required 11/24/2022 1 1 [...] ventricular tachycardia) (HCC-CMS) Shawna Terry MD MPH [address] [place] [phone] [facility] Card[facility] Clinic [address] [place] [address] Referral ID Status Reason Start Date Expiration Date Visits Requested Visits Authorized [id number] Authorization Not Required Specialty Services Required 3 1 1 Encounter Details Date Type Department Care Team (Latest Contact Info) Description 11/20/2022 8:30 EDT Office Visit [facility] Cardiology Clinic [address] [place] [address] Carlos Ha NP [address] [place] [address] [address]OB[address]A [address] [place] [address] Ventricular tachycardia (HCC-CMS) (Primary Dx); [...] an inpatient follow-up visit. She presented to [facility] on 11/10 with complaints of fatigue, chest [...] and octreotide. She was then transferred to [facility]. Repeat EDG showed esophagitis, scattered [...] pursued given her anemia with acute GIB. [facility] recommended to be considered given her [...] not much more activity due to fatigue [facility] Cryptogenic stroke (left MCA) 2017 with Medtronic loop 2017. ASA recently started during admission at [facility] 08/2022 Paroxysmal atrial fibrillation (2 hr episode noted on monitor 2018.Started on Eliquis. No further episodes noted) NSVT (1 episode August 2019 with negative MPI) AVB type I and II - noted on innersole fitter during recent admission Hypertension, Hyperlipidemia (LDL 65 in 2021: She has been intolerant to multiple statins now on REPATHA) DM2 (A1C 7.1) CKD III Kidney stone 11/02 passed Duodenal ulcer and esophagitis with acute GIB admit to [facility] 11/11-11/14. D/C on Protonix. ?Parkinson's Disease Lives in [place] with spouse Has three grown children She [...] 06/24 needle ??? blood glucose meter by [facility] (non-drug; combo route) route daily. [...] glucose scanning reader (FREESTYLE VICKY 2 READER) [facility] 1 Device by [facility] (non-drug; comboroute) route daily. Dispense [...] ??? lancets/blood glucose strips ([facility]) -to test blood sugar - twice daily [...] ??? Propoxyphene N-Acetaminophen Other reaction(s): Hallucinations ??? Qtjwjto-Feg-Tlf Reductase Inhibitors ??? Trulicity [Dulaglutide] Gi Side [...] recent NSTEMI awaiting ischemic work up at [facility] which couldn't be completed during recent admission due to acute GIB. Negative MPI 2019. [facility] recommended and will be planned when patient stable. Will need to consider pt ability to take further antiplatelet agents if needed 2. HCM severe asymmetric hypertrophy of LV with septal thickness 1.9 cm. Work up includes MCOT which she will start today. Awaiting MRI at [facility] 12/31. Spoke with Dr. Sebastian at [facility] who saw her in consultation. Referral sent to have him follow up with her as outpatient. Awaiting appointment. Low dose Metoprolol started while at [facility] -Consult pending with Dr. Sebastian with the Advanced Heart Failure Team -cMRI 12/31 3. NSVT. Currently wearing MCOT. MRI pending. Awaiting ischemic work up at [facility] -MCOT in process with known brief asymptomatic [...] [facility] Cardiology - [facility] [address] [place] [address] 03/08/2024 10:15 EDT Ancillary Procedure [facility] Cardiology - [place] [address] [place] [address] 04/05/2024 10:00 EDT Ancillary Procedure [facility] [address] [place] [id number] 04/05/2024 10:00 EDT Office Visit [facility] [address] [place] [address] Carlos Ha NP [address] [place] [address]-A [address] [place] [address] Scheduled Referrals Name Type Priority [...] EDT) 11/23/2022 12:5 7 EDT Scan 2 Obgyn Specialist PROCEDURE/MINOR CROW GICAL ORDERABLES * EKG 12-LEAD (11/20/2022 10:21 EDT) 11/20/2022 10:2 1 EDT [facility] - 11/22/2022 12:29 EDT ? CVC ? Test Date: ?2022-11-20 Pat Name: ? JOANNA GAUTAM ?Department: ? Room: ? Gender: ? Female ? Neurosurgical Nurse Practitioner: ?? ES : ?1950 ? Requested By: AMIRAH Jimenez Order Number: [id number] ? Oleksandr HAY: ?? JASON PALU MD ? Measurements Intervals ?[place] ? Rate: ? 72 ? P: ? ID: ? [id number] ?QRS: ?-13 QRSD: ? 116 [...] Name: JOANNA HART Department: Room: Gender: Female Neurosurgical Nurse Practitioner: ES : 1950 Requested By: AMIRAH Jimenez Order Number: [id number] Reading MD: JASON PAUL MD Measurements Intervals [place] Rate: 72 P: ID: [id number] QRS: -13 QRSD: 116 T: 153 [...] CARDIAC ECG ORDERABL ES Performing Organization Address City/[facility]/ZIP Co de Phone Number [facility] * (ABNORMAL) TRANSFERRIN SATURATION (11/20/2022 10:02 EDT) Iron 34(L) 37 - 170 ??g/dL 11/20/2022 15:41 EDT [facility] Iron Binding Capacity 315 240 - 450 ??g/dL 11/20/2022 15:41 EDT [facility] Transferrin Saturation 11(L) 15 - 45 % 11/20/2022 15:41 EDT [facility] Blood VENOUS BLOOD / Unknown Venipuncture / Unknown 11/20/2022 10:02 EDT 11/20/2022 10:44 EDT Carlos Ha NP CHEMISTRY & BLOOD GA S ORDERABLES Performing Organization Address [facility]/ZIP Co de Phone Number [facility] [address] [place] [address] * (ABNORMAL) BASIC METABOLIC PANEL (BMP) (11/20/2022 10:02 EDT) Sodium 139 136 - 145 mmol/L 11/20/2022 11:14 EDT [facility] Potassium 4.8 3.5 - 5.0 mmol/L 11/20/2022 11:14 EDT [facility] Chloride 108 96 - 110 mmol/L 11/20/2022 11:14 EDT [facility] CO2 Total 23 22 - 32 mmol/L 11/20/2022 11:14 EDT [facility] Anion Gap 8 5 - 14 mmol/L 11/20/2022 11:14 EDT [facility] Glucose 177(H) 70 - 100 mg/dl 11/20/2022 11:14 [facility] Calcium 10.0 8.5 - 10.5 mg/dL 11/20/2022 11:14 [facility] BUN 11 10 - 26 mg/dL 11/20/2022 11:14 [facility] Creatinine 0.84 0.52 - 1.04 mg/dL 11/20/2022 11:14 [facility] eGFR 75 >60 mL/min/1.73 m2 11/20/2022 11:14 [facility] Blood VENOUS BLOOD / Unknown Venipuncture / Unknown 11/20/2022 10:02 EDT 11/20/2022 10:44 EDT Carlos Ha NP CHEMISTRY & BLOOD GA S ORDERABLES Performing Organization Address City/State/[facility] Co de Phone Number [facility] [address] [place] [address] * (ABNORMAL) COMPLETE BLOOD COUNT AND DIFFERENTIAL (11/20/2022 10:02 EDT) WBC 7.59 4.00 - 12.40 K/cmm 11/20/2022 10:39 [facility] RBC 2.96(L) 3.86 - 5.04 M/cmm 11/20/2022 10:39 [facility] Hemoglobin 8.7(L) 11.6 - 15.2 g/dL 11/20/2022 10:39 [facility] HCT 26.9(L) 34.9 - 44.4 % 11/20/2022 10:39 [facility] MCV 91 81 - 98 fL 11/20/2022 10:39 [facility] MCH 29.4 26.7 - 33.3 pg 11/20/2022 10:39 [facility] MCHC 32.3 32.1 - 35.9 g/dL 11/20/2022 10:39 [facility] RDW-CV 14.8(H) <14.7 % 11/20/2022 10:39 [facility] RDW-SD 47.4 <50.4 fl 11/20/2022 10:39 [facility] PLT 393(H) 141 - 377 K/cmm 11/20/2022 10:39 [facility] MPV 11.0 9.5 - 12.7 fL 11/20/2022 10:39 [facility] % Neutrophils 62.6 % 11/20/2022 10:39 [facility] % Lymphocytes 27.1 % 11/20/2022 10:39 [facility] % Monocytes 7.4 % 11/20/2022 10:39 [facility] % Eosinophils 2.0 % 11/20/2022 10:39 [facility] % Basophils 0.5 % 11/20/2022 10:39 [facility] % Immature Grans 0.4 % 11/21/19 10:39 [facility] Absolute Neutrophils 4.75 2.20 - 8.85 K/cmm 11/20/2022 10:39 [facility] Absolute Lymphocytes 2.06 1.09 - 3.30 K/cmm 11/20/2022 10:39 [facility] Absolute Monocytes 0.56 0.10 - 0.80 K/cmm 11/20/2022 10:39 [facility] Absolute Eosinophils 0.15 0.03 - 0.61 K/cmm 11/20/2022 10:39 [facility] ABS Basophils 0.04 0.01 - 0.11 K/cmm 11/20/2022 10:39 [facility] Absolute Immature Grans 0.03 0.00 - 0.06 K/cmm 11/20/2022 10:39 [facility] Type of Differential: Auto 11/20/2022 10:39 [facility] Blood VENOUS BLOOD / Unknown Venipuncture / Unknown 11/20/2022 10:02 EDT 11/20/2022 10:35 EDT Carlos Ha NP PACKAGES & DNA PROBE ORDERABLES [facility] [address] [place] [address] documented in this encounter Visit Diagnoses Diagnosis [...] unspecified documented in this encounter Care Teams Hotel Or Motel Room Service Supervisor Relationship Specialty Start Date End Date Bryant Crain MD [address] [place], [place] [phone] PCP - General 05/04/15 05/17/23 Carlos Ha NP [address] [facility] [address]A [address] [place] [address] Consulting Clinician Cardiovascular Disease 09/14/21 documented as of this encounter
--- OUTSIDE RECORDS SUMMARY | 2024-01-12 11:22 | XMS_ITS | Encounter Summary ---
Author Organization [facility] Address [address] [place] [address] Care Team Providers Care Digital Technician Name Role Phone Bryant Crain MD Primary Care Provider [phone] Carlos Ha BULK PALLET BUILDER Unavailable [phone] Reason for Visit * Reason Onset Date Comments Discuss Possible Transfer 11/11/2022 Encounter Details Date Type Department Care Team (Late st Contact Info) Description 11/11/2022 Telephone [facility] General Medicine Unit [address] [place] [address] Mauri Pizano MD [address] [address] Discuss Possible Transfer Social History [...] 11/11/2022 0822 EDT 11/11/2022 Internal Medicine Hospitalist [facility] 72 yo female intermittent 2nd degree heart [...] Info) Description 03/08/2024 9:30 EDT Ancillary Procedure [facility] Cardiology - [facility] [place] [address] 03/08/2024 10:15 EDT Ancillary Procedure [facility] Cardiology - [place] [address] 04/05/2024 10:00 EDT Ancillary Procedure [facility] [address] [place] [address] 04/05/2024 10:00 EDT Office Visit [facility] [address] [place], [place] [address] Carlos Ha NP [address] [facility] [address] [place] [address] documented as of this encounter Visit Diagnoses Not on filedocumented in this encounter Care Teams Digital Technician Relationship Specialty Start Date End Date Bryant Crain MD [address] [place], [place] [phone] PCP - General 05/04/15 05/17/23 Carlos Ha NP [address] [facility] [address] [place] [phone] Consulting Clinician Cardiovascular Disease 09/14/21 documented as of this encounter
--- OUTSIDE RECORDS SUMMARY | 2024-01-12 11:22 | XMS_ITS | Encounter Summary ---
Author Organization [facility] Address [address] [place] [address] Care Team Providers Care Rag Room Supervisor Name Role Phone Bryant Crain MD Primary Care Provider [phone] Reason for Visit * Reason Onset Date Comments Blood Sugar Problem 07/15/2021 Encounter Details Date Type Department Care Team (Late st Contact Info) Description 07/15/2021 Telephone [facility] Endocrinology [address] [place] [address] Heidi Moore RN Blood Sugar Problem Social [...] Encounter - Heidi Moore RN - 07/15/2021 7907 EST Called with low bg's in the [...] Info) Description 03/08/2024 9:30 EDT Ancillary Procedure [facility] Cardiology - [address] [place] [address] 03/08/2024 10:15 EDT Ancillary Procedure [facility] Cardiology [address] [address] 04/05/2024 10:00 EDT Ancillary Procedure [facility] Cardiology Clinic [address] [place] [id number] 04/05/2024 10:00 EDT Office Visit [facility] Cardiology Clinic [address] [place] [address] Carlos Ha NP [address] [place] [address]-A [address] [place] [phone] documented as of this encounter Visit Diagnoses [...] 07/15/2021 added in this encounter Care Teams Rag Room Supervisor Relationship Specialty Start Date End Date Bryant Crain MD [address] [place] [address] PCP - General 05/04/15 05/17/23 documented as of this encounter
--- OUTSIDE RECORDS SUMMARY | 2024-01-12 11:22 | XMS_ITS | Encounter Summary ---
Author Organization [facility] Address [address] [place] [address] Care Team Providers Care Chief Dietitian Name Role Phone Bryant Crain MD Primary Care Provider [phone] Carlos Ha BLOCKER HAND Unavailable [phone] Reason for Visit * Reason Comments Other Encounter Details Date Type Department Care Team (Late st Contact Info) Description 12/26/2021 Refill [facility] Endocrinology [address] [place] [address] Sarika Zamudio, BLOCKER HAND [address] [facility] [address] [place] [address] Other Social History Tobacco Use [...] Procedure [facility] Cardiology - [address] [place], [place] [phone] 03/08/2024 10:15 EDT Ancillary Procedure [facility] Cardiology - [address] [place] [address] 04/05/2024 10:00 EDT Ancillary Procedure [facility] Cardiology Clinic [address] [place] [id number] 04/05/2024 10:00 EDT Office Visit [facility] Cardiology Clinic [address] [place] [address] Carlos Ha NP [address] [place] [address]-[address] [place] [phone] documented as of this encounter Visit Diagnoses Not on filedocumented in this encounter Discontinued Medications Medication Sig Discontinue Reason Start Date End Da te flash glucose sensor (FREESTYLE VICKY 2 SENSOR) kit 1 Units by misc (non-drug; combo route) route every 14 days. 10/29/2020 12/29/2021 documented as of this encounter Care Teams Chief Dietitian Relationship Specialty Start Date End Date Bryant Crain MD [address] [place], [place] [phone] PCP - General 05/04/15 05/17/23 Carlos Ha NP [address] [place] [address] [address] [place] [phone] Consulting Clinician Cardiovascular Disease 09/14/21 documented as of this encounter
--- OUTSIDE RECORDS SUMMARY | 2024-01-12 11:22 | XMS_ITS | Encounter Summary ---
Author Organization [facility] Address [address] [place] [address] Care Team Providers Care Basket Operator Name Role Phone Bryant Crain MD Primary Care Provider [phone] Encounter Details Date Type Department Care Team (Late st Contact Info) Description 04/09/2021 Results Only [facility] Card[facility] Clinic [address] [place] [address] Hayde Paul MD 130 [facility] [address] [place] [address] Social History Tobacco Use Types [...] Description 03/08/2024 9:30 EDT Ancillary Procedure [facility] Cardiology - [facility] [address] [place] [id number] 03/08/2024 10:15 EDT Ancillary Procedure [facility] Cardiology - [facility] [address] [place], [place] [id number] 04/05/2024 10:00 EDT Ancillary Procedure [facility] Cardiology Clinic [address] [place], [place] [address] 04/05/2024 10:00 EDT Office Visit [facility] Cardiology Clinic [address] [place] [address] Carlos Ha NP 130 [facility] [address] [place] [address] documented as of this encounter Procedures Procedure Name Priority Date/Time Associated Diagnosis Comments POCT GLUCOSE, INTERFACED Routine 04/09/2021 7:51 EDT documented in this encounter Results * (ABNORMAL) POCT GLUCOSE, INTERFACED (04/09/2021 7:51 EDT) Glucose, POC 131(H) 70 - 100 mg/dL 04/09/2021 8:[address] [facility] 04/09/2021 7:51 EDT 04/09/2021 8:09 EDT Hayde Paul MD POINT OF CARE T EST ORDERABLES [facility] [address] [place] [address] documented in this encounter Visit Diagnoses Not on filedocumented in this encounter Care Teams Basket Operator Relationship Specialty Start Date End Date Bryant Crain MD [address] [place], [place] [phone] PCP - General 05/04/15 05/17/23 documented as of this encounter
--- OUTSIDE RECORDS SUMMARY | 2024-01-12 11:22 | XMS_ITS | Encounter Summary ---
Author Organization [facility] Address [address] [place] [address] Care Team Providers Care Jboss Developer Name Role Phone Bryant Crain MD Primary Care Provider [phone] Reason for Visit * Reason Comments Diabetes Encounter Details Date Type Department Care Team (Late st Contact Info) Description 03/06/2021 10:00 EDT Office Visit [facility] Endocrinology [address] [place] [address] Sarika Zamudio, THREAD DRAWER 130 [facility]- [address] [place] [phone] Type 2 diabetes mellitus with hyperglycemia, with long-term current use of insulin ([facility]) (Primary Dx); termination clerk current use of insulin (HCC-CMS); Mixed hyperlipidemia; [...] to the clinic for a follow-up in [facility], with a history of DM [...] (within one year): UTD, sees clinic in [place] Last dental exam: overdue. Will schedule. CVD,PVD,CAD: HTN, HLD,CVA Statin: repatha injections. Aspirin: yes ACEI/ARB: candesartan 32 mg Prior visit with graphic design specialist: yes, JALEN Hyman. Foot care: podiatry Comorbidities: [...] % Final No results found for: MICROALBUR, [id number] Lab Results Component Value Date NA 137 11/23/2019 K 5.1 (H) 11/23/2019 CL 108 11/23/2019 CO2 20 (L) 11/23/2019 BUN 26 11/23/2019 GLU 199 (H) 11/23/2019 CA 11.2 (H) 11/23/2019 Joanna Hart is a 70 y.o. female who presented to the clinic for a follow-up in [facility], with a history of DM for 14 yrs. Problem List Items Addressed This Visit Endocrine/Metabolic detention current use of insulin ([facility]) Diabetes mellitus, type 2 ([facility]) - Primary Controlled A1C 7 Continue current [...] EDT Associated Problem(s): Diabetes mellitus, type 2 ([facility]) Controlled A1C 7 Continue current regimen: ozempic [...] Ancillary Procedure [facility] Cardiology - [facility] [address] [place], [place] [id number] 03/08/2024 10:15 EDT Ancillary Procedure [facility] Cardiology [address] [place] [address] 04/05/2024 10:00 EDT Ancillary Procedure [facility] Cardiology Clinic [address] [place] [address] 04/05/2024 10:00 EDT Office Visit [facility] Cardiology Clinic [address] [place] [address] Carlos Ha NP [address] [place] [address]-A [address] [place] [phone] documented as of this encounter Procedures Procedure Name Priority Date/Time Associated Diagnosis Comments POCT GLUCOSE, MANUAL ENTRY Routine 03/06/2021 Type 2 diabetes mellitus with hyperglycemia, with long-term current use of insulin ([facility]) POCT HEMOGLOBIN A1C Routine 03/06/2021 Type 2 diabetes mellitus with hyperglycemia, with long-term current use of insulin ([facility]) documented in this encounter Results * (ABNORMAL) POCT HEMOGLOBIN A1C (03/06/2021) Hemoglobin A1c, POC 7.0(A) 5.7 % [facility] POINT OF CARE Blood CAPILLARY BLOOD / Unknown 03/06/2021 Sarika Zamudio THREAD DRAWER POINT OF CARE FUNMILAYO T ORDERABLES [facility] POINT OF CARE * (ABNORMAL) POCT GLUCOSE, MANUAL ENTRY (03/06/2021) Glucose, POC 167(A) 70 - 100 mg/dL [facility] POINT OF CARE HN LAB POC COMMENT MANUAL (GLUCOSE) [facility] POINT OF eyeglass assembler ID [facility] Blood CAPILLARY BLOOD / Unknown 03/06/2021 Sarika Zamudio THREAD DRAWER POINT OF CARE FUNMILAYO T ORDERABLES [facility] POINT OF CARE documented in this encounter Visit Diagnoses Diagnosis Type 2 diabetes mellitus with hyperglycemia, with long-term current use of insulin ([facility])- Primary termination clerk current use of insulin ([facility]) Encounter for long-term (current) use of insulin Mixed hyperlipidemia Essential hypertension Unspecified essential hypertension documented in this encounter Discontinued Medications Medication Sig Discontinue Reason Start Date End Da te semaglutide (OZEMPIC) 1 mg/dose (2 mg/1.5 mL) pen injectorIndications:Typ e 2 diabetes mellitus with hyperglycemia, with long-term current use of insulin ([facility]) Inject 0.75 mL into the skin once [...] Sundays02/09/2021 added in this encounter Care Teams Jboss Developer Relationship Specialty Start Date End Date Bryant Crain MD [address] [place] [address] PCP - General 05/04/15 05/17/23 documented as of this encounter
--- OUTSIDE RECORDS SUMMARY | 2024-01-12 11:22 | XMS_ITS | Encounter Summary ---
Author Organization [facility] Address [address] [place] [address] Care Team Providers Care Snow Maker Name Role Phone Bryant Crain MD Primary Care Provider [phone] Carlos Ha FOOD STOREROOM CLERK Unavailable [phone] Reason for Visit * Reason Comments Follow-up Pacemaker/Device Check Encounter Details Date Type Department Care Team (Latest Contact Info) Description 09/16/2021 11:00 EDT Office Visit [facility] Cardiology Clinic [address] [place] [address] Carlos Ha FOOD STOREROOM CLERK [address] [facility] [address] [place] [address] Paroxysmal atrial fibrillation (HCC-CMS) (HCC) [...] this encounter Progress Notes * Carlos Ha, FOOD STOREROOM CLERK - 09/16/2021 1100 EDT CC: Follow-up and [...] Diagnosis Date ??? Cerebrovascular accident (CVA) (HCC-CMS) ([facility]) 06/01/2019 ??? Diabetes mellitus, type 2 ([facility]) 01/26/2011 On metformin On metformin ??? Essential hypertension 06/01/2019 ??? Mixed hyperlipidemia 06/05/2019 ??? Nonrheumatic aortic valve stenosis 06/01/2019 ??? Paroxysmal atrial fibrillation (HCC-CMS) ([facility]) 06/01/2019 SH/FH: reviewed and updated MEDICATIONS: Medications [...] VICKY 2 READER) misc 1 Device by [facility] (non-drug; comboroute) route daily. Dispense one reader ??? flash glucose sensor (FREESTYLE VICKY 2 SENSOR) kit 1 Units by [facility] (non- drug; combo route) route [...] ??? Propoxyphene N-Acetaminophen Other reaction(s): Hallucinations ??? Qptdzrx-Thl-Wsp Reductase Inhibitors ??? Trulicity [Dulaglutide] Gi Side [...] intraventricular conduction defect. ECHOCARDIOGRAM 12/18/2020 (completed at [facility]) LV is normal size and [...] Relatively well controlled Paroxysmal atrial fibrillation (HCC-CMS) ([facility]) - Primary She is appropriately anticoagulated for stroke risk reduction without bleeding complications. Mixed hyperlipidemia Dilated cardiomyopathy (HCC-CMS) ([facility]) Improved EF on echo 11/2020 (55%) I spent a total of 30 minutes on the date of this encounter which includes time with the patient, time reviewing medical records and laboratory results, time updating the chart information, and time composing this note. No procedures were performed at the time of the visit. Carlos aH NP documented in this encounter Miscellaneous Notes * Assessment & Plan Note - Carlos Ha NP - 09/16/2021 1132 EDTAssociated Problem(s): Mixed hyperlipidemia LDL treated to target. Continue current dose of Repatha * Assessment & Plan Note - Carlos Ha NP - 09/16/2021 1129 EDTAssociated Problem(s): Paroxysmal atrial fibrillation ([facility]-CMS) She is appropriately anticoagulated for stroke risk reduction without bleeding complications. * Assessment & Plan Note - Carlos Ha NP - 09/16/2021 1128 EDTAssociated Problem(s): Essential hypertension Relatively well controlled * Assessment & Plan Note - Carlos Ha NP - 09/16/2021 1127 EDTAssociated Problem(s): Dilated cardiomyopathy ([facility]-CMS) Improved EF on echo 11/2020 (55%) documented in this encounter Plan of Treatment Upcoming Encounters Date Type Department Care Team (Late st Contact Info) Description 03/08/2024 9:30 EDT Ancillary Procedure [facility] Cardiology - [facility] [place] [place] [address] 03/08/2024 10:15 EDT Ancillary Procedure [facility] Cardiology [facility] [place] [address] 04/05/2024 10:00 EDT Ancillary Procedure [facility] Cardiology Clinic [address] [place] [address] 04/05/2024 10:00 EDT Office Visit [facility] Cardiology Clinic [address] [place] [address] Carlos Ha NP [address] [place] [address]-[address] [place] [phone] documented as of this encounter Visit Diagnoses [...] daily. added in this encounter Care Teams Snow Maker Relationship Specialty Start Date End Date Bryant Crain MD [address] [place] [address] PCP - General 05/04/15 05/17/23 Carlos Ha NP [address] [place] [address] [address] [place] [phone] Consulting Clinician Cardiovascular Disease 09/14/21 documented as of this encounter
--- OUTSIDE RECORDS SUMMARY | 2024-01-12 11:22 | XMS_ITS | Encounter Summary ---
Author Organization [facility] Address [address] [place] [address] Care Team Providers Care Marine Cargo Surveyor Name Role Phone Bryant Crain MD Primary Care Provider [phone] Carlos Ha ARMHOLE SEWER Unavailable [phone] Reason for Visit * (Routine/Next Available) - Receiving Office to Obtain Authorization Specialty Diagnoses / Procedures Referred By Charo daniel Referred To Contact Procedures CT OUTSIDE IMAGES ABDOMEN PELVIS Imaging, External Referral ID Status Reason Start Date Expiration Date Visits Requested Visits Authorized [id number] Receiving Office to Obtain Authorization 11/11/2022 1 1 Encounter Details Date Type Department Care Team (Latest Contact Info) Description 11/02/2022 - 11/02/2022 23:59 EDT Hospital Encounter [facility] Secondary Reads [place] Discharge Disposition: Home [...] hyperglycemia, with long-term current use of insulin ([facility]) by [facility] [...] 01/18/2020 lancets/blood glucose strips (ONE TOUCH COMBO [facility]) -to test blood sugar - twice daily [...] Description 03/08/2024 9:30 EDT Ancillary Procedure [facility] Cardiology - [facility] [place] [address] 03/08/2024 10:15 EDT Ancillary Procedure [facility] Cardiology [facility] [place] [address] 04/05/2024 10:00 EDT Ancillary Procedure [facility] Cardiology Clinic [address] [place] [address] 04/05/2024 10:00 EDT Office Visit [facility] Cardiology Clinic [address] [place] [address] Carlos Ha NP [address] [place] [address]-[address] [place] [address] documented as of this encounter [...] on filedocumented in this encounter Care Teams Marine Cargo Surveyor Relationship Specialty Start Date End Date Bryant Crain MD [address] [place], [place] [phone] PCP - General 05/04/15 05/17/23 Carlos Ha NP [address] [place] [address]-[address] [place] [address] Consulting Clinician Cardiovascular Disease 09/14/21 documented as of this encounter
--- OUTSIDE RECORDS SUMMARY | 2024-01-12 11:22 | XMS_ITS | Encounter Summary ---
Author Organization [facility] Address [address] [place] [address] Care Team Providers Care Software Developer Name Role Phone Bryant Crain MD Primary Care Provider [phone] Carlos Ha PLASTIC HOSPITAL PRODUCTS ASSEMBLER Unavailable [phone] Reason for Visit * Reason Onset Date Comments Discuss Possible Transfer 11/11/2022 Encounter Details Date Type Department Care Team (Late st Contact Info) Description 11/11/2022 Telephone [facility] General Medicine Unit [address] [place] [address] Mauri Pizano MD [address] [address] Discuss Possible Transfer Social History [...] Mauri Pizano MD Addenda Patient accepted to [facility] documented in this encounter Plan of Treatment Upcoming Encounters Date Type Department Care Team (Late st Contact Info) Description 03/08/2024 9:30 EDT Ancillary Procedure [facility] Cardiology - [address] [place], [place] [phone] 03/08/2024 10:15 EDT Ancillary Procedure [facility] Cardiology - [address] [place], [place] [phone] 04/05/2024 10:00 EDT Ancillary Procedure [facility] Cardiology Clinic [address] [place] [address] 04/05/2024 10:00 EDT Office Visit [facility] Cardiology Clinic [address] [place] [address] Carlos Ha NP [address] [facility] [address] [place] [address] documented as of this encounter Visit Diagnoses Not on filedocumented in this encounter Care Teams Software Developer Relationship Specialty Start Date End Date Bryant Crain MD [address] [place], [place] [phone] PCP - General 05/04/15 05/17/23 Carlos Ha NP [address] [facility] [address] [address] Consulting Clinician Cardiovascular Disease 09/14/21 documented as of this encounter
--- OUTSIDE RECORDS SUMMARY | 2024-01-12 11:22 | XMS_ITS | Encounter Summary ---
Author Organization [facility] Address [address] [place] [address] Care Team Providers Care Paid Search Marketing Analyst Name Role Phone Bryant Crain MD Primary Care Provider [phone] Encounter Details Date Type Department Care Team (Latest Contact Info) Description 08/01/2021 9:55 EST Phlebotomy Only [facility] - Outpatient Phlebotomy Drawing [address] [place] [address] Lab, [facility] Op Phlebotomy Primary hyperparathyroidism ([facility]); Type 2 diabetes mellitus with hyperglycemia, with long-term current use of insulin (HCC-CMS) ([facility]) Social History Tobacco Use Types Packs/Day Years [...] 03/08/2024 9:30 EDT Ancillary Procedure [facility] Cardiology [place] [address] 03/08/2024 10:15 EDT Ancillary Procedure [facility] [place] [address] 04/05/2024 10:00 EDT Ancillary Procedure [facility] Cardiology Clinic [address] [place] [phone] 04/05/2024 10:00 EDT Office Visit [facility] Cardiology Clinic [address] [place] [address] Carlos Ha NP [address] [place] [address]-[address] [place] [phone] documented as of this encounter Procedures Procedure Name Priority Date/Time Associated Diagnosis Comments VITAMIN D (25,OH) Routine 08/01/2021 10:02 EST Primary hyperparathyroidism ([facility]) PHOSPHORUS Routine 08/01/2021 10:02 EST Primary hyperparathyroidism ([facility]) MAGNESIUM Routine 08/01/2021 10:02 EST Primary hyperparathyroidism ([facility]) VITAMIN B12 Add-On 08/01/2021 10:02 EST Type 2 diabetes mellitus with hyperglycemia, with long-term current use of insulin ([facility]) ([facility]) LIPID PROFILE (INCLUDES CHOLESTEROL, TRIGLYCERIDES, HDL, LDL) Routine 08/01/2021 10:02 EST Type 2 diabetes mellitus with hyperglycemia, with long-term current use of insulin ([facility]) ([facility]) COMPREHENSIVE METABOLIC PANEL (CMP) Routine 08/01/2021 10:02 EST Primary hyperparathyroidism ([facility]) documented in this encounter Results * (ABNORMAL) VITAMIN B12 (08/01/2021 10:02 EST) Vitamin B12 172(L) 211 - 911 pg/mL 08/05/2021 14:46 EST [facility] Blood VENOUS BLOOD / Unknown Venipuncture / Unknown 08/01/2021 10:02 EST 08/01/2021 11:04 EST Narrative [facility] - 08/05/2021 14:46 EST The results of this assay can be falsely elevated due to the consumption of Biotin. Sarika Zamudio NP CHEMISTRY & BLOOD GAS ORDERABLES Performing Organization Address [facility]/ZIP Co de Phone Number [facility] [address] [place] [address] * VITAMIN D (25,OH) (08/01/2021 10:02 EST) 25OH Vitamin D Tot 30 30 - 100 ng/mL 08/01/2021 11:52 EST [facility] Blood VENOUS BLOOD / Unknown Venipuncture / Unknown 08/01/2021 10:02 EST 08/01/2021 11:04 EST Sarika Zamudio NP CHEMISTRY & BLOOD GAS ORDERABLES Performing Organization Address City/[facility]/ZIP Co de Phone Number [facility] [address] [place] [address] * PHOSPHORUS (08/01/2021 10:02 EST) Phosphorus 3.4 2.5 - 4.5 mg/dL 08/01/2021 11:35 EST [facility] Blood VENOUS BLOOD / Unknown Venipuncture / Unknown 08/01/2021 10:02 EST 08/01/2021 11:04 EST Sarika Zamudio NP CHEMISTRY & BLOOD GAS ORDERABLES Performing Organization Address City/[facility]/ZIP Co de Phone Number [facility] [address] [place] [address] * MAGNESIUM (08/01/2021 10:02 EST) Magnesium 1.9 1.7 - 2.8 mg/dL 08/01/2021 11:35 [facility] Blood VENOUS BLOOD / Unknown Venipuncture / Unknown 08/01/2021 10:02 EST 08/01/2021 11:04 EST Sarika Zamudio NP CHEMISTRY & BLOOD GAS ORDERABLES [facility] [address] [place] [address] * LIPID PROFILE (INCLUDES CHOLESTEROL, TRIGLYCERIDES, HDL, LDL) (08/01/2021 10:02 EST) Cholesterol 143 See Note mg/dL 08/01/2021 11:35 [facility] Comment: Acceptable: ?<200 mg/dL Borderline High: 200-239 mg/dL High: ?> or = 240 mg/dL HDL 40 See Note mg/dL 08/01/2021 11:35 [facility] Comment: Low: ? <40 mg/dL Normal: ??40-60 mg/dL High: ?>60 mg/dL LDL, Calculated 65 See Note mg/dL 08/01/2021 11:35 [facility] Comment: Optimal: ? <100 mg/dL Near Optimal: ?100-129 mg/dL Borderline High: 130-159 mg/dL High: ?160-189 mg/dL Very High: ? > or = 190 mg/dL Triglyceride 188 See Note mg/dL 08/01/2021 11:35 [facility] Comment: Normal: ? <150 mg/dL Borderline High: ??150 - 199 mg/dL High: ? 200 - 499 mg/dL Very High: ?> or = 500 mg/dL Chol/HDL Ratio 3.6 See Note 08/01/2021 11:35 [facility] Comment: NOTE: Desirable Ratio = <4.1 Patient At Risk Ratio = >5.0(Males) ?>6.0(Females) Non HDL Cholesterol 103 See Note mg/dL 08/01/2021 11:35 [facility] Comment: Desirable: ?<130 mg/dL Borderline High: ??130-159 mg/dL High: ? 160-189 mg/dL Very High: ?> or = 190 mg/dL Blood VENOUS BLOOD / Unknown Venipuncture / Unknown 08/01/2021 10:02 EST 08/01/2021 11:04 EST Sarika Zamudio NP CHEMISTRY & BLOOD GAS ORDERABLES Performing Organization Address City/State/[facility] Co de Phone Number [facility] [address] [place] [address] * (ABNORMAL) COMPREHENSIVE METABOLIC PANEL (CMP) (08/01/2021 10:02 EST) Sodium 139 136 - 145 mmol/L 08/01/2021 11:35 [facility] Potassium 4.9 3.5 - 5.0 mmol/L 08/01/2021 11:35 [facility] Chloride 105 96 - 110 mmol/L 08/01/2021 11:35 [facility] CO2 Total 25 22 - 32 mmol/L 08/01/2021 11:35 [facility] Glucose 131(H) 70 - 100 mg/dL 08/01/2021 11:35 [facility] BUN 24 10 - 26 mg/dL 08/01/2021 11:35 [facility] Creatinine 0.82 0.52 - 1.04 mg/dL 08/01/2021 11:35 [facility] eGFR 73 >60 mL/min/1.7 3m2 08/01/2021 11:35 [facility] Total Protein 6.7 6.3 - 8.2 g/dL 08/01/2021 11:35 [facility] Albumin 4.2 3.4 - 4.9 g/dL 08/01/2021 11:35 [facility] Alkaline Phosphatase 51 38 - 126 U/L 08/01/2021 11:35 [facility] AST 30 15 - 46 U/L 08/01/2021 11:35 [facility] ALT 20 <35 U/L 08/01/2021 11:35 [facility] Bilirubin, Total 0.4 <1.4 mg/dL 08/01/19 11:35 [facility] Calcium 10.7(H) 8.5 - 10.5 mg/dL 08/01/2021 11:35 [facility] Albumin/Globulin Ratio 1.7 1.0 - 2.5 08/01/2021 11:35 [facility] Anion Gap 9 5 - 14 08/01/2021 11:35 [facility] Blood VENOUS BLOOD / Unknown Venipuncture / Unknown 08/01/2021 10:02 EST 08/01/2021 11:04 EST Sarika Zamudio COMMUNITY PLANNER CHEMISTRY & BLOOD GAS ORDERABLES Performing Organization Address City/State/[facility] Co de Phone Number [facility] [address] [place] [address] documented in this encounter Visit Diagnoses Diagnosis Primary hyperparathyroidism (HCC-CMS) Primary hyperparathyroidism Type 2 diabetes mellitus with hyperglycemia, with long-term current use of insulin ([facility]) documented in this encounter Care Teams Paid Search Marketing Analyst Relationship Specialty Start Date End Date Bryant Crain MD [address] [place] [address] PCP - General 05/04/15 05/17/23 documented as of this encounter
--- OUTSIDE RECORDS SUMMARY | 2024-01-12 11:22 | XMS_ITS | Encounter Summary ---
Author Organization [facility] Address [address] [place] [address] Care Team Providers Care Pediatric Physical Therapist Name Role Phone Bryant Crain MD Primary Care Provider [phone] Reason for Visit * (Routine) - Order Cancelled Specialty Diagnoses / Procedures Referred By Charo daniel Referred To Contact Diagnoses Cryptogenic stroke ([facility]) Procedures CARDIAC IMPLANT CHECK - IN CLINIC Carlos Ha NP [address] [facility]-[address] [place] [address] Referral ID Status Reason Start Date Expiration Date V isits Requested Visits Authorized [id number] Order Cancelled 06/11/2020 18 18 Encounter Details Date Type Department Care Team (Late st Contact Info) Description 03/14/2021 9:00 EDT Ancillary Procedure [facility] Cardiology Clinic [address] [place] [phone] Social History Tobacco Use Types Packs/Day Years [...] Info) Description 03/08/2024 9:30 EDT Ancillary Procedure [facility] Cardiology - [facility] [address] [place] [address] 03/08/2024 10:15 EDT Ancillary Procedure [facility] Cardiology [facility] [address] [place] [address] 04/05/2024 10:00 EDT Ancillary Procedure [facility] Cardiology Clinic [address] [place] [address] 04/05/2024 10:00 EDT Office Visit [facility] Cardiology Clinic [address] [place] [phone] Carlos Ha, RAHEEM [address] [place] [address]-[address] [place] [phone] documented as of this encounter Procedures Procedure [...] for devicedetails. Carlos Ha APRN Carlos Ha SUPPORT DBA CV IMPLANTABLE CARDI AC DEVICE documented in this encounter Visit Diagnoses Not on filedocumented in this encounter Care Teams Pediatric Physical Therapist Relationship Specialty Start Date End Date Bryant Crain MD [address] [place] [address] PCP - General 05/04/15 05/17/23 documented as of this encounter
--- OUTSIDE RECORDS SUMMARY | 2024-01-12 11:22 | XMS_ITS | Encounter Summary ---
Author Organization [facility] Address [address] [place] [address] Care Team Providers Care Carbide Tool Die Maker Name Role Phone Bryant Crain MD Primary Care Provider [phone] Carlos Ha GUM SPRAYER Unavailable [phone] Reason for Visit * Reason Onset Date Comments Appointment Related 02/11/2022 Encounter Details Date Type Department Care Team (Late st Contact Info) Description 02/11/2022 Telephone [facility] End[facility]inology [address] [place] [address] Sarika Zamudio, GUM SPRAYER [address] [facility] [place] [address] Appointment Related Social History Tobacco [...] [facility] Cardiology - [address] [place] [address] 03/08/2024 10:15 EDT Ancillary Procedure [facility] Cardiology - [address] [place] [address] 04/05/2024 10:00 EDT Ancillary Procedure [facility] Cardiology Clinic [address] [place] [address] 04/05/2024 10:00 EDT Office Visit [facility] Cardiology Clinic [address] [place] [address] Carlos Ha NP [address] [place] [phone] documented as of this encounter Visit Diagnoses Not on filedocumented in this encounter Care Teams Carbide Tool Die Maker Relationship Specialty Start Date End Date Bryant Crain MD [address] [place] [address] PCP - General 05/04/15 05/17/23 Carlos Ha NP [address] [place] [phone] Consulting Clinician Cardiovascular Disease 09/14/21 documented as of this encounter
--- OUTSIDE RECORDS SUMMARY | 2024-01-12 11:22 | XMS_ITS | Encounter Summary ---
Author Organization [facility] Address [address] [place] [address] Care Team Providers Care Senior Bioinformatics Scientist Name Role Phone Bryant Crain MD Primary Care Provider [phone] Reason for Visit * Reason Comments Other device battery deple tion Encounter Details Date Type Department Care Team (Late st Contact Info) Description 04/09/2021 External Contact [facility] Cardiology Clinic [address] [place] [address] Hayde Paul MD [address] [facility] [place] [address] Encounter for loop recorder at [...] Notes * Hayde Paul MD - 04/09/2021 0300 EDT [facility] Cardiology/Electrophysiology Operative Note Patient: Joanna HART Date of : 1950 Date of Service: 04/09/2021 Preoperative diagnosis: Implanted threat monitoring analyst battery depletion Postoperative diagnosis: Implanted threat monitoring analyst battery depletion Procedure: Implanted threat monitoring analyst (Medtronic Reveal LINQ) explant Superintendent Power: Hayde Paul MD Anesthesia: Local Preprocedure antibiotics: [...] explantation of a Medtronic Reveal LINQ implanted threat monitoring analyst. CPT 82046. Hayde Paul MD documented in this encounter Plan of Treatment Upcoming Encounters Date Type Department Care Team (Late st Contact Info) Description 03/08/2024 9:30 EDT Ancillary Procedure [facility] Cardiology [facility] [place] [address] 03/08/2024 10:15 EDT Ancillary Procedure [facility] Cardiology [facility] [place] [address] 04/05/2024 10:00 EDT Ancillary Procedure [facility] Cardiology Clinic [address] [place] [address] 04/05/2024 10:00 EDT Office Visit [facility] Cardiology Clinic [address] [place], [place] [address] Carlos Ha NP [address] [facility] [address] [place] [address] documented as of this encounter Visit Diagnoses Diagnosis Encounter for loop recorder at end of battery life- Primary Fitting and adjustment of other cardiac device documented in this encounter Care Teams Senior Bioinformatics Scientist Relationship Specialty Start Date End Date Bryant Crain MD [address] [place] [address] PCP - General 05/04/15 05/17/23 documented as of this encounter
--- OUTSIDE RECORDS SUMMARY | 2024-01-12 11:22 | XMS_ITS | Encounter Summary ---
Author Organization [facility] Address [address] [place] [address] Care Team Providers Care Steam Meter Reader Name Role Phone Bryant Crain MD Primary Care Provider [phone] Reason for Visit * Reason Comments Follow-up Pacemaker/Device Check Low Battery Encounter Details Date Type Department Care Team (Latest Contact Info) Description 03/14/2021 9:[address] [facility] - [facility] Cardiology Clinic [address] [place] [phone] Carlos Ha NP [address] [facility]- [address] [place] [phone] Dilated cardiomyopathy (HCC-CMS) (Primary Dx); Essential [...] this encounter Progress Notes * Carlos Ha, WORLD RENOWNED CHEF AND RESTAURANT OWNER - 03/14/2021 09 EDT CC: Follow-up and [...] History: Diagnosis Date ??? Cerebrovascular accident (CVA) ([facility]) 06/01/2019 ??? Diabetes mellitus, type 2 ([facility]) 01/26/2011 On metformin On metformin ??? Essential hypertension 06/01/2019 ??? Mixed hyperlipidemia 06/05/2019 ??? Nonrheumatic aortic valve stenosis 06/01/2019 ??? Paroxysmal atrial fibrillation ([facility]) 06/01/2019 SH/FH: reviewed and updated MEDICATIONS: Medications Prior to Today's Visit Medication Sig ??? acetaminophen (TYLENOL 8 HOUR) 650 mg CR tablet 2 tab(s) orally twice a day, only as needed ??? apixaban (ELIQUIS) 5 mg tablet Take 5 mg by mouth 2 times daily. ??? aspirin 81 mg EC tablet Take 81 mg by mouth daily. ??? blood glucose meter [place] [facility] (non-drug; combo route) route daily. One touch verio meter or best covered by insurance. ??? candesartan (ATACAND) 32 mg tablet Take 32 mg by mouth daily. ??? cetirizine (ZYRTEC) 10 mg tablet Take 10 mg by mouth daily. ??? flash glucose scanning reader (FREESTYLE VICKY 2 READER) misc 1 Device by [facility] (non-drug; comboroute) route daily. Dispense one reader ??? flash glucose sensor (FREESTYLE VICKY 2 SENSOR) kit 1 Units by [facility] (non- drug; combo route) route every 14 [...] ??? lancets/blood glucose strips ([facility]OUCH [facility]BO [facility]) -to test blood sugar - twice [...] ??? Propoxyphene N-Acetaminophen Other reaction(s): Hallucinations ??? Gnkhewv-Drh-Etj Reductase Inhibitors ??? Trulicity [Dulaglutide] Gi Side [...] intraventricular conduction defect. ECHOCARDIOGRAM 12/18/2020 (completed at [facility]) LV is normal size and function. EF [...] TRIG 256 06/05/2019 HGBA1C 7.0 (A) 03/06/2021 [facility] Cardiology ILR Visit Aircraft Parts Assembler: [employer] Device Type: Implantable loop recorder Service: [...] Description 03/08/2024 9:30 EDT Ancillary Procedure [facility] Cardiology - [facility] [place] [address] 03/08/2024 10:15 EDT Ancillary Procedure [facility] Cardiology - [facility] [place] [address] 04/05/2024 10:00 EDT Ancillary Procedure [facility] Cardiology Clinic [address] [place] [phone] 04/05/2024 10:00 EDT Office Visit [facility] Cardiology Clinic [address] [place] [address] [phone] Carlos Ha, SAP HANA ARCHITECT [address] [place] [address]-[address] [place] [phone] documented as of this encounter Visit Diagnoses Diagnosis Dilated cardiomyopathy (HCC-CMS)- Primary Other primary cardiomyopathies Essential hypertension Unspecified essential hypertension Mixed hyperlipidemia Paroxysmal atrial fibrillation (HCC-CMS) Atrial fibrillation documented in this encounter Care Teams Steam Meter Reader Relationship Specialty Start Date End Date Bryant Crain MD [address] [place] [address] PCP - General 05/04/15 05/17/23 documented as of this encounter
--- OUTSIDE RECORDS SUMMARY | 2024-01-12 11:22 | XMS_ITS | Encounter Summary ---
Author Organization [facility] Address [address] [place] [address] Care Team Providers Care Insemination Worker Name Role Phone Bryant Crain MD Primary Care Provider [phone] Carlos Ha FORK TRUCK DRIVER Unavailable [phone] Encounter Details Date Type Department Care Team (Late st Contact Info) Description 11/15/2022 Orders Only [facility] Radiology - [facility] [address] [place] [address] Stanislav Erickson MD [address] [facility], [address] [place] [address] Social History Tobacco Use Types [...] 9:30 EDT Ancillary Procedure [facility] Cardiology - [address] [place], [place] [phone] 03/08/2024 10:15 EDT Ancillary Procedure [facility] Cardiology [address] [place] [address] 04/05/2024 10:00 EDT Ancillary Procedure [facility] Cardiology Clinic [address] [place] [phone] 04/05/2024 10:00 EDT Office Visit [facility] Cardiology Clinic [address] [place] [address] [phone] Carlos Ha NP [address] [place] [address] [place]OB[address] [place] [phone] documented as of this encounter Visit Diagnoses Not on filedocumented in this encounter Care Teams Insemination Worker Relationship Specialty Start Date End Date Bryant Crain MD [address] [place], [place] [phone] PCP - General 05/04/15 05/17/23 Carlos Ha NP [address] [place] [address] [address] [place] [address] Consulting Clinician Cardiovascular Disease 09/14/21 documented as of this encounter
--- OUTSIDE RECORDS SUMMARY | 2024-01-12 11:22 | XMS_ITS | Encounter Summary ---
Author Organization [facility] Address [address] [place] [address] Care Team Providers Care End Matcher Name Role Phone Bryant Crain MD Primary Care Provider [phone] Carlos Ha PAYROLL BENEFITS ADMINISTRATOR Unavailable [phone] Reason for Visit * (Routine/Next Available) - Receiving Office to Obtain Authorization Specialty Diagnoses / Procedures Referred By Charo daniel Referred To Contact Procedures XR OUTSIDE IMAGES CHEST Imaging, External Referral ID Status Reason Start Date Expiration Date Visits Requested Visits Authorized [id number] Receiving Office to Obtain Authorization 11/11/2022 1 1 Encounter Details Date Type Department Care Team (Latest Contact Info) Description 11/10/2022 - 11/10/2022 23:59 EDT Hospital Encounter [facility] Secondary Reads [place] Discharge Disposition: Home [...] hyperglycemia, with long-term current use of insulin ([facility]) by [facility] (non-drug; combo route) route daily. One touch verio meter or best covered by insurance. 1 Each 10/02/2020 cetirizine (ZYRTEC) 10 mg tablet Take 1 Tablet by mouth daily. Cholecalciferol, Vitamin D3, 10 mcg (400 unit) tablet Take 1 Tablet by mouth daily. cyanocobalamin (VITAMIN B-12) 500 mcg tablet Take 1 Tablet by mouth daily. flash glucose scanning reader (FREESTYLE VICKY 2 READER) [facility] 1 Device by [facility] (non-drug; combo route) route daily. Dispense [...] 01/18/2020 lancets/blood glucose strips (ONE TOUCH COMBO [facility]) -to test blood sugar - twice daily [...] Procedure [facility] Cardiology - [facility] [place] [address] 03/08/2024 10:15 EDT Ancillary Procedure [facility] Cardiology [place] [address] [place] [address] 04/05/2024 10:00 EDT Ancillary Procedure [facility] Cardiology Clinic [address] [place] [phone] 04/05/2024 10:00 EDT Office Visit [facility] Cardiology Clinic [address] [place] [address] [phone] Carlos Ha NP [address] [place] [address]-A [address] [place] [phone] documented as of this encounter [...] on filedocumented in this encounter Care Teams End Matcher Relationship Specialty Start Date End Date Bryant Crain MD [address] [place], [place] [phone] PCP - General 05/04/15 05/17/23 Carlos Ha NP [address] [place] [address]-A [address] [place] [phone] Consulting Clinician Cardiovascular Disease 09/14/21 documented as of this encounter
--- OUTSIDE RECORDS SUMMARY | 2024-01-12 11:22 | XMS_ITS | Encounter Summary ---
Author Organization [facility] Address [address] [place] [address] Care Team Providers Care Fire Extinguisher Inspector Name Role Phone Bryant Crain MD Primary Care Provider [phone] Reason for Visit * Reason Onset Date Comments Follow-up 03/18/2021 Reveal explant Encounter Details Date Type Department Care Team (Late st Contact Info) Description 03/18/[address] [facility] [address] [place] [address] Rea Ness, JALEN [address] [place] [address]-[address] [place] [address] Follow-up (Reveal explant) Social History Tobacco Use [...] - Hayley Robles - 04/11/2021 1124 EDT [facility] called. The girl I spoke with said she was going to go ahead and approve the quality assurance monitor body removal. She left her direct line as * Telephone Encounter - Rea Ness RN - 04/08/2021 1637 EDT PA obtained for Reveal [id number] Auth#-[id number] Ref #[id number] * Telephone Encounter - Rea [...] 03/08/2024 9:30 EDT Ancillary Procedure [facility] Cardiology - [place] [address] 03/08/2024 10:15 EDT Ancillary Procedure [facility] [place] [address] 04/05/2024 10:00 EDT Ancillary Procedure [facility] Cardiology Clinic [address] [place] [phone] 04/05/2024 10:00 EDT Office Visit [facility] [address] [place], [place] [phone] Carlos Ha NP [address] [facility] [place] [place] [phone] documented as of this encounter Visit Diagnoses Not on filedocumented in this encounter Care Teams Fire Extinguisher Inspector Relationship Specialty Start Date End Date Bryant Crain MD [address] [place] [address] PCP - General 05/04/15 05/17/23 documented as of this encounter
--- OUTSIDE RECORDS SUMMARY | 2024-01-12 11:22 | XMS_ITS | Encounter Summary ---
Author Organization [facility] Address [address] [place] [address] Care Team Providers Care Trimmer Meat Name Role Phone Bryant Crain MD Primary Care Provider [phone] Carlos Macario PLAYGROUND DIRECTOR Unavailable [phone] Reason for Referral * Follow Up (Urgent) - New Request Specialty Diagnoses / Procedures Referred By Contac t Referred To Contact Diagnoses Gastrointestinal hemorrhage, unspecified gastrointestinal hemorrhage type NSTEMI (non-ST elevated myocardial infarction) (HCC-CMS) Acute blood loss anemia Hypertrophic cardiomyopathy (HCC-CMS) NSVT (nonsustained ventricular tachycardia) ([facility]) Shawna Terry MD MPH [address] [phone] Bryant Crain MD [address] [place] [id number] Referral ID Status Reason Start Date Expiration Date Visits Requested Visits Authorized [id number] New Request Continuity of Care 11/14/2022 1 1 Question Answer Reason for Request: hospital discharge follow up, acute GI bleed, concern for hypertrophic cardiomyopathy * Referral (Urgent) - New Request Specialty Diagnoses / Procedures Referred By Contac t Referred To Contact Diagnoses Gastrointestinal hemorrhage, unspecified gastrointestinal hemorrhage type NSTEMI (non-ST elevated myocardial infarction) (HCC-CMS) Hypertrophic cardiomyopathy (HCC-CMS) Shawna Terry MD MPH [address] [address] - Or Far[place] [address] [place] [address] Referral ID Status Reason Start Date Expiration Date Visits Requested Visits Authorized [id number] New Request Specialty Services Required 11/14/2022 1 1 Question Answer I certify that this patient is under my care and that I, or another Medicare allowed practitioner (DO SATNAM, CONOR) working with me, had a [id number] encounter with this patient on this date: [...] Skilled care requested: Acute therapies (includes PT, FORESTRY TREE PRUNER) Therapies skilled care requested: Physical Therapy Physical therapy is needed for: Evaluation, Strength Training/Exercise Program, Safety * Consult (Urgent) - Authorization Not Required Specialty Diagnoses / Procedures Referred By Contac t Referred To Contact Cardiology Diagnoses NSTEMI (non-ST elevated myocardial infarction) (HCC-CMS) Hypertrophic cardiomyopathy (HCC-CMS) NSVT (nonsustained ventricular tachycardia) (HCC-CMS) Shawna Terry MD MPH [address] [address] [facility] [address] [place] [address] Referral ID Status Reason Start Date Expiration Date Visits Requested Visits Authorized [id number] Authorization Not Required Specialty Services Required 3 1 1 Question Answer Reason for Request: inpatient team requested referral for hx NSVT, HCM, genetic eval for HCM * Cardiology (Routine/Next Available) - Authorized Specialty Diagnoses / Procedures Referred By Contac t Referred To Contact Diagnoses NSTEMI (non-ST elevated myocardial infarction) (HCC-CMS) Hypertrophic cardiomyopathy (HCC-CMS) NSVT (nonsustained ventricular tachycardia) (HCC-CMS) Procedures CARDIAC EVENT MONITOR DE XTRNL MOBILE CV TELEMETRY W/I&REPORT 30 DAYS DE XTRNL PT ACTIVTD ECG DWNLD W/R&I </30 DAYS Shawna Terry MD MPH [address] [address] [facility] Referral ID Status Reason Start Date Expiration Date V isits Requested Visits Authorized [id number] Authorized 11/14/2022 1 1 * Radiology Services (Routine/Next Available) - Receiving Office to Obtain Authorization Specialty Diagnoses / Procedures Referred By Contac t Referred To Contact Radiology Diagnoses NSTEMI (non-ST elevated myocardial infarction) (HCC-CMS) Hypertrophic cardiomyopathy (HCC-CMS) NSVT (nonsustained ventricular tachycardia) (HCC-CMS) Procedures MR CARDIAC W WO CONTRAST Shawna Terry MD MPH [address] [address] [facility] Referral ID Status Reason Start Date Expiration Date Visits Requested Visits Authorized [id number] Receiving Office to Obtain Authorization 11/14/2022 1 1 Reason for Visit * Auth/Cert (Routine) Specialty Diagnoses / Procedures Referred By Contac t Referred To Contact Diagnoses GI bleed GIB Referral ID Status Reason Start Date Expiration Date Visits Re quested Visits Authorized [id number] 1 1 Encounter Details Date Type Department Care Team (Late st Contact Info) Description 11/11/2022 13:01 EDT - 11/14/2022 17:48 EDT Hospital Encounter [facility] General Medicine Unit [address] [place] [address] Rajinder Glez MD 111 [facility], [address] [place] [address] Shawna Terry MD MPH [address] [phone] Hypertrophic cardiomyopathy (HCC-CMS) (Primary Dx); [...] Summaries * Trisha Fulton MD - 11/14/2022 3478 EDT HOSPITAL MEDICINE DISCHARGE SUMMARY Primary Care Provider: Bryant Crain Attending Physician: Shawna Terry MD, MPH Admit Date: 11/11/22 Discharge Date: 11/14/22 Disposition (location): home, self care Condition at Discharge: Improved Reason for Admission (chief complaint): melena Principal/Final Diagnosis: GI bleed Additional Problems Managed in the Hospital: Active Hospital Problems Diagnosis Date Noted NSTEMI (non-ST elevated myocardial infarction) ([facility]) ([facility]) Duodenal erosion Esophagitis Resolved Hospital Problems Diagnosis Date Noted Date Resolved *GI bleed 11/11/2022 11/14/2022 Syncope 11/14/2022 Acute blood loss anemia 11/14/2022 Transition of care: [facility] Transition of Care report automatically routed to [...] f/u) - RESTART: - baby aspirin - OIL WELL SERVICE OPERATOR doses of insulin - NO NSAIDs moving foward 2. Recommended follow-up tests/procedures needed: - close PCP f/u within one week - referral placed for cardiology at [facility] - ordered cardiac MRI - ordered environmental monitoring technician with [facility] 3. Anticoagulation on discharge: No (HELD OIL WELL SERVICE OPERATOR to be discussed with PCP) 4. Changes to goals of care at time of discharge (if applicable): None. Hospital Course: Fortunato Hart is a 72 y.o. female with a PMHx of paroxysmal Afib on eliquis, 2nd degree heart block, CVA on asa, HTN, HLD, and T2DM on insulin who initially presented to [facility] with chest pain, syncope, and one week of melanotic stools. EGD at [facility] showed mild esophagitis but no active bleed, however her hemoglobin dropped by multiple points and she was given 2 units pRBCs. She then developed significant hematemesis and required 2 additional units pRBCs and 2 units FFP. She was ultimately foundto have elevated troponin and had ongoing hematemesis prompting transfer to [facility] MICU for further management. On arrival to [facility] MICU, she was stable on room air [...] PCP f/u to discuss her hospitalizationand her OIL WELL SERVICE OPERATOR apixaban (on hold given bleed). Important to [...] workup as well as cardiac MRI and environmental monitoring technician with [facility]. She was started on metoprolol tartrate and d/c with plan to f/u at [facility] Cardiology. Relevant Imaging/Procedures Performed: No results found. Results Pending at Discharge: Test results still pending from this admission None Upcoming Appointments Dec 08, 2022 11:30 (Arrive by 11:15) Office Visit Medium with Carlos Macario NP [facility] Cardiology Clinic (--) [address] [facility] [address] Follow-up appointments and procedures Amb Consult/Follow Up Cardiology Reason for Request: inpatient team requested referral for hx NSVT, HCM, genetic eval for HCM Authorizing Provider: Shawna Terry MD MPH Amb Consult/Follow Up Primary Care Physician Outside of Network Reason for Request: hospital discharge follow up, acute GI bleed, concern for hypertrophic cardiomyopathy Authorizing Provider: Shawna Terry MD MPH [facility] I certify that this patient is under my care and that I, or another Medicare allowed practitioner (, DO, CONOR) working with me, had a [id number] encounter with this patient on this date: [...] Skilled care requested: Acute therapies (includes PT, FORESTRY TREE PRUNER) Therapies skilled care requested: Physical Therapy Physical [...] MRI (within 2 hours). Authorizing Provider: Shawna Terry MD MPH Complete Blood Count Complete by: November 17, 2022 (Approximate) Authorizing Provider: Shawna Terry MD MPH TRSIHA FULTON MD 11/14/2022 17:47 Associated attestation - [...] labs that can be done within the [facility] network, or you can call your PCPif they draw blood and get bloodwork through them. We would recommend checking a complete blood count (CBC) to monitor your hemoglobin. - Please follow up with [facility]. A referral was placed and they should call you to schedule. - I have placed orders for the cardiac MRI as well as the environmental monitoring technician (wearable monitor to track your heartbeats over [...] hyperglycemia, with long-term current use of insulin ([facility]) by [facility] (non-drug; combo route) route daily. One touch verio meter or best covered by insurance. 1 Each 10/02/2020 cetirizine (ZYRTEC) 10 mg tablet Take 1 Tablet by mouth daily. Cholecalciferol, Vitamin D3, 10 mcg (400 unit) tablet Take 1 Tablet by mouth daily. cyanocobalamin (VITAMIN B-12) 500 mcg tablet Take 1 Tablet by mouth daily. flash glucose scanning reader (FREESTYLE VICKY 2 READER) [facility] 1 Device by [facility] (non-drug; combo route) route daily. Dispense one [...] 01/18/2020 lancets/blood glucose strips (ONE TOUCH COMBO [facility]) -to test blood sugar - twice daily [...] Code Departure Means Destination Home or Self Longterm documented in this encounter Progress Notes * Josemanuel Garcia, PT - 11/14/2022 1333 EDT [facility] Rehabilitation Therapy Acute Therapies [facility] Physical Therapy Initial Evaluation/Discontinue Note Date [...] MICU on 11/11/2022 as a transfer from [facility] for syncope, hematemesis, upper GI bleed. At [facility] she received 4 units pRBC, 2 units FFP, Kcentra. Underwent EGD that showed esophagitis and old blood in stomach. Rising troponin and recurrent hematemesis prompting transfer to [facility]. 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 Entry stairs one step up into the house Prior Level of Function: Independent Services prior to admission: None Work/Leisure: Retired Medical/Surgical History: CURRENT: The patient has Cerebrovascular accident (CVA) ([facility]); Current use of reinforcer 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; specialist managers current use of insulin ([facility]) ([facility]); Essential hypertension; Paroxysmal atrial fibrillation ([facility]) ([facility]); Status post placement of implantable loop recorder; Diabetes mellitus, type 2 ([facility]); Rosacea; Hypomagnesemia; Mixed hyperlipidemia; Ventricular tachycardia ([facility]); Dilated cardiomyopathy ([facility]) ([facility]); Stage 3b chronic kidney disease ([facility]); Osteopenia after menopause; Hypercalcemia; Primary hyperparathyroidism ([facility]); Fatigue; NSTEMI (non-ST elevated myocardial infarction) ([facility]) ([facility]); Duodenal erosion; and Esophagitis on their problem list. PAST: The patient has a past medical history of Cerebrovascular accident (CVA) ([facility]), Diabetes mellitus, type 2 ([facility]) (On metformin On metformin), Essential hypertension, Mixed hyperlipidemia, Nonrheumatic aortic valve stenosis, and Paroxysmal atrial fibrillation ([facility]) ([facility]). Medications: Medications reviewed Arousal, Attention, and Cognition: [...] Interventions Completed Today: Physical Therapy today at: [id number] Total treatment time: 30 minutes. Timed code [...] 13:33 * Kalyani Olguin RN - 11/13/2022 1207 EDT FOUR EYES SKIN ASSESSMENT Four Eyes skin assessment was performed on admission to the unit by Kalyani Olguin RN and Mary Greenwood RN. Device related pressure injury present? No All skin intact verified by: Kalyani Olguin RN. Last Jose Score: 16 Instructions: ??? Add LDA for any identified wounds ??? Add [place] image for any suspected PI or non surgical wounds ??? Order wound consult if suspected PI identified ? ? If Jose is < or = to 16, initiate Pressure Injury Prevention Bundle ([id number]). 11/13/2022 12:05 * Stephon Sosa - 11/13/2022 [...] results for input(s): PHISTAT, PCOISTAT, POISTAT, POCTCO2, S9IBYAKK, POCFIO2 in the last 72 hours. Recent [...] HLD, DM2 on insulin who presented to [facility] on the forchest pain, syncope and melena. [...] #tropinemia #2nd degree AV block #LVH -hold OIL WELL SERVICE OPERATOR eliquis -formal TTE: hyperdynamic, asymmetric hypertrophy -trops peaked 11/12 -EKG with V1 V2 ST elevation -EKG if symptomatic -f/u cards recs, -possible inpatient cardiac MRI, will likely need ICD placement -low dose BB when more stable -event monitor on [facility] as outpatient -Monitor on telemetry -hold OIL WELL SERVICE OPERATOR candasartan ?? Renal: - monitor electrolytes, Cr [...] - monitor fingerstick glucose -start lantus 20 (OIL WELL SERVICE OPERATOR 30) ?? PPX: ??? GI:??protonix ??? DVT:??contraindicated SCDs. ??? Elevate HOB ??? Turn q2 ?? CODE: full Contact: PT/OT: Deferred Consults: cards and GI Discharge Plan: Uncertain at this time Stephon Sosa PGY1 Associated attestation - Rajinder Glez MD - 11/13/2022 6588 EDT Attestation: I performed or was present [...] results for input(s): PHISTAT, PCOISTAT, POISTAT, POCTCO2, A4QMNQWR, POCFIO2 in the last 72 hours. Recent [...] HLD, DM2 on insulin who presented to [facility] on the forchest pain, syncope and melena. [...] #tropinemia #2nd degree AV block #LVH -hold OIL WELL SERVICE OPERATOR eliquis -formal TTE: hyperdynamic, asymmetric hypertrophy -trops peaked 11/12 -EKG with V1 V2 ST elevation -EKG if symptomatic -f/u cards recs, will likely need ICD placement -Monitor on telemetry -hold OIL WELL SERVICE OPERATOR candasartan -trend lactate Q6, down trending -syncopal [...] - monitor fingerstick glucose -start lantus 20 (OIL WELL SERVICE OPERATOR 30) ?? PPX: ??? GI:??protonix ??? DVT:??contraindicated [...] used for peripheral line insertion. Name of habitat management coordinator: Suleman Potter RN LDAINFO BLOCK Peripheral IV [...] at bedside. SULEMAN POTTER RN 11/12/2022 * Nkiko Celis DO - 11/11/2022 5922 EDT Brief GI note: Patient admitted as transfer from [facility] in the setting of hematemesis and NSTEMI. She had a EGD donewhich showed mild esophagitis and old blood in the stomach without other significant findings. She had a recurrent episode of hematemesis this morning prompting transfer to [facility]. She has not had recurrent [...] Fellow * Kizzy Aguila RT - 11/11/2022 1689 EDT Respiratory Consult/Progress Note Indications for Respiratory [...] Rajinder Glez MD - 11/11/2022 1312 EDT [facility] Medical Intensive Care Unit History and Physical [...] stone passed on 11/07, who presented to [facility] on 11/11 for 2 episodes of chest [...] the . Her troponin downtrended while at [facility] and she wasthen transferred to the [facility] MICU. At [facility] she arrives stable on RA [...] History: Diagnosis Date ??? Cerebrovascular accident (CVA) ([facility]) ([facility]) ([facility]) 06/01/2019 ??? Diabetes mellitus, type 2 ([facility]) ([facility]) 01/26/2011 On metformin On metformin ??? Essential hypertension 06/01/2019 ??? Mixed hyperlipidemia 06/05/2019 ??? Nonrheumatic aortic valve stenosis 06/01/2019 ??? Paroxysmal atrial fibrillation ([facility]) ([facility]) 06/01/2019 No past surgical history [...] mg tablet ??? flash glucose scanning reader ([employer] VICKY 2 READER) misc ??? Pro Player ConnectSTYLE VICKY 2 SENSOR kit ??? gabapentin (NEURONTIN) [...] results for input(s): PHISTAT, PCOISTAT, POISTAT, POCTCO2, P8NLQDIX, POCFIO2 in the last 72 hours. No [...] HLD, DM2 on insulin who presented to [facility] on the forchest pain, syncope and melena. [...] #tropinemia #2nd degree AV block #LVH -hold OIL WELL SERVICE OPERATOR eliquis -formal TTE -trend trops to peak -EKG with V1 V2 ST elevation -EKG if symptomatic -f/u cards recs -Monitor on telemetry -hold OIL WELL SERVICE OPERATOR candasartan -trend lactate Q6 -heparin 0.23, INR [...] - monitor fingerstick glucose -start lantus 10 (OIL WELL SERVICE OPERATOR 30) PPX: GI: protonix DVT: contraindicated SCDs. [...] airway assessment) was performed as outlined in [facility] sedation policy ([id number]). Auscultate heart: NORMAL Auscultate lung: normal Mallampati [...] to verify the correct patient, procedure, equipment, network support engineer and site/side marked as required. Patient's heart [...] I personally spent 20 minutes in continuous ayko-zd-srmy attendance with the patient for the administration [...] History: Diagnosis Date ??? Cerebrovascular accident (CVA) ([facility]) 06/01/2019 ??? Diabetes mellitus, type 2 ([facility]) 01/26/2011 On metformin On metformin ??? Essential hypertension 06/01/2019 ??? Mixed hyperlipidemia 06/05/2019 ??? Nonrheumatic aortic valve stenosis 06/01/2019 ??? Paroxysmal atrial fibrillation ([facility]) ([facility]) 06/01/2019 No past surgical history [...] ??? Propoxyphene N-Acetaminophen Other reaction(s): Hallucinations ??? Mbxgpdc-Lrp-Wuk Reductase Inhibitors ??? Trulicity [Dulaglutide] Gi Side [...] recent syncope currently with Ziopatch transferred to [facility] from [facility] on 11/11/2022 for GIB and NSTEMI for [...] makes doing so unsuitable (again suspect demand [place]. From our discussion with Fortunato, it seemsshe [...] HCM - Will need Event monitor on [facility] as outpatient given h/o NSVT and HCM - Outpatient cardiology f/u at [facility] Outpatient genetic mutation evaluation Interval History O/N: [...] with the assessment and plan. Ty Kebede Child Advocate PGY4 Pager: [phone] Some of this note was transcribed with [...] 11/30/2022 21:29 Cardiology Consult: Date: 11/11/2022 Outpatient Chief Inspector: Carlos Macario NP Consulting Reasons: Elevated troponin [...] recent syncope currently with Ap transferred to [facility] from [facility] on 11/11/2022 for GIB and NSTEMI for [...] makes doing so unsuitable (again suspect demand [place]. From our discussion with Fortunato, it seems she has been told she has HCM in the past my a physician in [place], but not much additional work up (including [...] Will need outpatient cardiology follow up at [facility] (Fortunato agrees to this) - Agree with monitoring on telemetry while admitted History of Present Illness Fortunato initially presented to her PCP's office yesterday for chest pressure and two recent syncopalepisodes. An EKG was reassuring at this time, though she developed another episode of chest pressure yesterday evening, for which she ultimately went to the ED at [facility]. She reports that she has been experiencing [...] that she associates with eating. In the [facility] ED she was found to have a Hbg of 9.9, which subsequently dropped to 7.1, as well as anelevated troponin (?[address] Pizano's telephone encounter) which began to downtrend prior to hertransfer to [facility]. She was given 2 units pRBC's, and EGD revealed esophagitis and blood clots in the stomach, but no active bleeding. In the residential aide of 11/11 she had two bouts of hematemesis (1.5 cups + 475 cc respectively), received 2 more units pRBC's, 2 units FFP, and PCC. Octreotide infusion and Protonix were started, and she was transferred to [facility]. Eliquis and ASA last taken on 11/09. Upon arrival to [facility], Fortunato was found to have ECG c/f [...] History: Diagnosis Date ??? Cerebrovascular accident (CVA) ([facility]) (HCC) ([facility]) 06/01/2019 ??? Diabetes mellitus, type 2 (HCC) ([facility]) 01/26/2011 On metformin On metformin ??? Essential hypertension 06/01/2019 ??? Mixed hyperlipidemia 06/05/2019 ??? Nonrheumatic aortic valve stenosis 06/01/2019 ??? Paroxysmal atrial fibrillation ([facility]) ([facility]) 06/01/2019 No past surgical history on file. Social History Family History Social History Tobacco Use ??? Smoking status: Never ??? Smokeless tobacco: Never Substance Use Topics ??? Alcohol use: Not on file EtoH: [] Yes [x] No Illicits: [] Yes [x] No No family history on file. Premature CVA/[place]: [] Yes [x] No` Sudden : [] [...] 1/4 needle ??? blood glucose meter by [facility] (non-drug; combo route) route daily. One touch [...] Tablet 2 ??? flash glucose scanning reader (Pro Player ConnectSTYLE VICKY 2 READER) misc 1 Device by [...] ??? Propoxyphene N-Acetaminophen Other reaction(s): Hallucinations ??? Sxfcpnh-Xzy-Cba Reductase Inhibitors ??? Trulicity [Dulaglutide] Gi Side [...] the assessment and plan as shown above. yT Kebede Child Advocate PGY4 Some of this note was transcribed [...] Plan Documentation Outcome: Ongoing Flowsheets (Taken 11/14/2022 6204) Area of Focus: Safety Goal This Shift: [...] T2DM on insulin who initially presented to [facility] with chest pain, syncope. She was ultimately found to have elevated troponin, hematemesis, and melena and was sent to [facility] MICU for further management. In brief, patient had 1 week of melanotic stools prior to initial presentation. She had multiple episodes of chest pain and 2 episodes of syncope, prompting evaluation in [facility] ED. While there, she was found to have hemoglobin 9.9 -->7.1 which was treated with 2u pRBCs. She had an EGD at outside hospital showing mild esophagitis and old blood in stomach, but no active bleed. She later had signif icant hematemesis resulting in the need for 2 units additional pRBCs and 2units FFP as well as Kcentra. She was transferred to [facility] MICU for GI bleed and NSTEMI. On arrival to [facility] MICU, she was stable on room air [...] History: Diagnosis Date ??? Cerebrovascular accident (CVA) ([facility]) 06/01/2019 ??? Diabetes mellitus, type 2 ([facility] [facility] 01/26/2011 On metformin On metformin ??? Essential hypertension 06/01/2019 ??? Mixed hyperlipidemia 06/05/2019 ??? Nonrheumatic aortic valve stenosis 06/01/2019 ??? Paroxysmal atrial fibrillation ([facility]) ([facility]) 06/01/2019 No past surgical history [...] ??? Propoxyphene N-Acetaminophen Other reaction(s): Hallucinations ??? Pxsulfj-Bux-Qux Reductase Inhibitors ??? Trulicity [Dulaglutide] Gi Side [...] CVA who presented as a transfer from [facility] with upper GI bleed and NSTEMI. Patient [...] and HCM - Outpatient cardiology f/u at [facility] -Outpatient genetic mutation evaluation #Paroxysmal Afib on OIL WELL SERVICE OPERATOR eliquis - HOLD OIL WELL SERVICE OPERATOR eliquis given acute bleed #T2DM: Last hemoglobin A1c 7.1% on 11/11/2022. - SSI - lantus 20 units - FSBG with meals and at bedtime - gabapentin 600 mg BID #HTN #HLD - hold??OIL WELL SERVICE OPERATOR??candasartan given recent acute bleed -Trend blood pressure [...] (on apixaban),CVA, IDMM2, HTN who presented from [facility] with NSTEMI, syncope, and melana. EGD at [facility] showed esophagitis. She then developed hematemesis and transferred to [facility] MICU. Trop peaked at 34.7. Repeat EGD [...] to JALEN Samson and pt transferred to [place] [id number] at 1045. Problem: HEMODYNAMIC STATUS Goal: Patient [...] MICU on 11/11/2022 as a transfer from [facility] for syncope, hematemesis, upper GI bleed. At [facility] she received 4 units pRBC, 2 units FFP, Kcentra. Underwent EGD that showed esophagitis and old blood in stomach. Rising troponin and recurrent hematemesis prompting transfer to [facility]U. Underwent repeat EGD that show esophagitis, [...] bed becomes available. - Please call pager #[phone] Admitting Hospitalist when patient arrives to the [...] LDA for any identified wounds ??? Add [place] image for any suspected PI or non surgical wounds ??? Order wound consult if suspected PI identified ? ? If Jose is < or = to 16, initiate Pressure Injury Prevention Bundle ([id number]). 11/11/2022 15:32 documented in this encounter Plan of Treatment Upcoming Encounters Date Type Department Care Team (Late st Contact Info) Description 03/08/2024 9:30 EDT Ancillary Procedure [facility] [address] [place] [address] 03/08/2024 10:15 EDT Ancillary Procedure [facility] [place] [place] [address] 04/05/2024 10:00 EDT Ancillary Procedure [facility] [address] [place] [id number] 04/05/2024 10:00 EDT Office Visit [facility] [address] [place] [id number] Carlos Macario NP [address] [place] [address] [place] [address] Pending Results Name Type Priority [...] hemorrhage type NSTEMI (non-ST elevated myocardial infarction) ([facility]) Acute blood loss anemia Hypertrophic cardiomyopathy ([facility]) NSVT (nonsustained ventricular tachycardia) ([facility]) Expected: 11/16/2022 (Approximate), Expires: 11/15/2023 documented as [...] EDT) 12/01/2022 17:4 5 EDT Scan 2 Auditor/Quality PROCEDURE/MINOR CROW GICAL ORDERABLES * ECG REPORT - SCANNED (11/19/2022 7:53 EDT) 11/19/2022 7:53 EDT Scan 2 Auditor/Quality PROCEDURE/MINOR CROW GICAL ORDERABLES * (ABNORMAL) POCT GLUCOSE, INTERFACED (11/14/2022 17:00 EDT) Glucose, POC 229(H) 70 - 100 mg/dL 11/14/2022 17:01 EDT [facility] HN LAB POC COMMENT (GLUCOSE) Test Performed by Nursing Services 11/14/2022 17:01 EDT [facility] Blood CAPILLARY BLOOD / Unknown 11/14/2022 17:00 EDT 11/14/2022 17:01 EDT Stephon Sosa POINT OF CARE TEST O RDERABLES [facility] [address] [place] [address] * (ABNORMAL) POCT GLUCOSE, INTERFACED (11/14/2022 11:47 EDT) Glucose, POC 232(H) 70 - 100 mg/dL 11/14/2022 11:48 EDT [facility] HN LAB POC COMMENT (GLUCOSE) Test Performed by Nursing Services 11/14/2022 11:48 EDT [facility] Blood CAPILLARY BLOOD / Unknown 11/14/2022 11:47 EDT 11/14/2022 11:48 EDT Stephon Sosa POINT OF CARE TEST O RDERABLES Performing Organization Address City/[facility]/ZIP Co de Phone Number [facility] [address] [place] [address] * (ABNORMAL) POCT GLUCOSE, INTERFACED (11/14/2022 9:46 EDT) Glucose, POC 243(H) 70 - 100 mg/dL 11/14/2022 9:47 EDT [facility] HN LAB POC COMMENT (GLUCOSE) Test Performed by Nursing Services 11/14/2022 9:47 EDT [facility] Blood CAPILLARY BLOOD / Unknown 11/14/2022 9:46 EDT 11/14/2022 9:47 EDT Stephon Sosa POINT OF CARE TEST O RDERABLES Performing Organization Address [facility]/ZIP Co de Phone Number [facility] [address] [place] [address] * (ABNORMAL) COMPLETE BLOOD COUNT (11/14/2022 8:40 EDT) WBC 19.14(H) 4.00 - 12.40 K/cmm 11/14/2022 9:41 [facility] RBC 2.84(L) 3.86 - 5.04 M/cmm 11/14/2022 9:41 [facility] Hemoglobin 8.7(L) 11.6 - 15.2 g/dL 11/14/2022 9:41 [facility] HCT 25.0(L) 34.9 - 44.4 % 11/14/2022 9:41 [facility] MCV 88 81 - 98 fL 11/14/2022 9:41 [facility] MCH 30.6 26.7 - 33.3 pg 11/14/2022 9:41 [facility] MCHC 34.8 32.1 - 35.9 g/dL 11/14/2022 9:41 [facility] RDW-CV 14.3 <14.7 % 11/14/2022 9:41 EDT [facility] RDW-SD 43.5 <50.4 fl 11/14/2022 9:41 EDT [facility] PLT 199 141 - 377 K/cmm 11/14/2022 9:41 EDT [facility] MPV 11.9 9.5 - 12.7 fL 11/14/2022 9:41 EDT [facility] Nucleated Red Blood Cells 2(H) <=0 /100WBC'S 11/14/2022 9:41 EDT [facility] Blood VENOUS BLOOD / Unknown Venipuncture / Unknown 11/14/2022 8:40 EDT 11/14/2022 9:25 EDT Trisha Fulton MD HEMATOLOGY & PF4 ORD ERABLES Performing Organization Address City/[facility] Co de Phone Number [facility] [address] [place] [address] * (ABNORMAL) POCT GLUCOSE, INTERFACED (11/13/2022 21:16 EDT) Glucose, POC 265(H) 70 - 100 mg/dL 11/13/2022 21:18 EDT [facility] HN LAB POC COMMENT (GLUCOSE) Test Performed by Nursing Services 11/13/2022 21:18 EDT [facility] Blood CAPILLARY BLOOD / Unknown 11/13/2022 21:16 EDT 11/13/2022 21:17 EDT Stephon Sosa POINT OF CARE TEST O RDERABLES Performing Organization Address City/[facility]/ZIP Co de Phone Number [facility] [address] [place] [address] * (ABNORMAL) COMPLETE BLOOD COUNT (11/13/2022 19:17 EDT) WBC 19.01(H) 4.00 - 12.40 K/cmm 11/13/2022 19:33 EDT [facility] RBC 2.63(L) 3.86 - 5.04 M/cmm 11/13/2022 19:33 [facility] Hemoglobin 8.2(L) 11.6 - 15.2 g/dL 11/13/2022 19:33 [facility] HCT 22.8(L) 34.9 - 44.4 % 11/13/2022 19:33 [facility] MCV 87 81 - 98 fL 11/13/2022 19:33 [facility] MCH 31.2 26.7 - 33.3 pg 11/13/2022 19:33 [facility] MCHC 36.0(H) 32.1 - 35.9 g/dL 11/13/2022 19:33 [facility] RDW-CV 14.3 <14.7 % 11/13/2022 19:33 [facility] RDW-SD 44.0 <50.4 fl 11/13/2022 19:33 [facility] PLT 201 141 - 377 K/cmm 11/13/2022 19:33 [facility] MPV 11.3 9.5 - 12.7 fL 11/13/2022 19:33 [facility] Nucleated Red Blood Cells 2(H) <=0 /100WBC'S 11/13/2022 19:33 [facility] Blood VENOUS BLOOD / Unknown Venipuncture / Unknown 11/13/2022 19:17 EDT 11/13/2022 19:26 EDT Trisha Fulton MD HEMATOLOGY & PF4 ORD ERABLES [facility] [address] [place] [address] * (ABNORMAL) POCT GLUCOSE, INTERFACED (11/13/2022 17:09 EDT) Glucose, POC 212(H) 70 - 100 mg/dL 11/13/2022 17:11 [facility] HN LAB POC COMMENT (GLUCOSE) Test Performed by Nursing Services 11/13/2022 17:11 [facility] Blood CAPILLARY BLOOD / Unknown 11/13/2022 17:09 EDT 11/13/2022 17:11 EDT Stephon Sosa POINT OF CARE TEST O RDERABLES Performing Organization Address City/[facility]/ZIP Co de Phone Number [facility] [address] [place] [address] * (ABNORMAL) POCT GLUCOSE, INTERFACED (11/13/2022 13:10 EDT) Pathologist [facility] Glucose, POC 171(H) 70 - 100 mg/dL 11/13/2022 13:17 EDT [facility] HN LAB POC COMMENT (GLUCOSE) Test Performed by Nursing Services 11/13/2022 13:17 EDT [facility] Blood CAPILLARY BLOOD / Unknown 11/13/2022 13:10 EDT 11/13/2022 13:17 EDT Stephon Sosa POINT OF CARE TEST O RDERABLES Performing Organization Address City/[facility]/ZIP Co de Phone Number [facility] [address] [place] [address] * SLIDE REQUEST (11/13/2022 11:45 EDT) Pathologist [facility] Note A smear is filed in the Hematology lab. 11/13/2022 13:12 EDT [facility] Blood VENOUS BLOOD / Unknown Venipuncture / Unknown 11/13/2022 11:45 EDT 11/13/2022 12:30 EDT Stephon Sosa HEMATOLOGY & PF4 ORD ERABLES Performing Organization Address City/[facility]/ZIP Co de Phone Number [facility] [address] [place] [address] * (ABNORMAL) COMPLETE BLOOD COUNT (11/13/2022 11:45 EDT) Pathologist [facility] WBC 20.54(H) 4.00 - 12.40 K/cmm 11/13/2022 12:44 EDT [facility] RBC 2.66(L) 3.86 - 5.04 M/cmm 11/13/2022 12:44 [facility] Hemoglobin 8.2(L) 11.6 - 15.2 g/dL 11/13/2022 12:44 [facility] HCT 22.4(L) 34.9 - 44.4 % 11/13/2022 12:44 [facility] MCV 84 81 - 98 fL 11/13/2022 12:44 [facility] MCH 30.8 26.7 - 33.3 pg 11/13/2022 12:44 [facility] MCHC 36.6(H) 32.1 - 35.9 g/dL 11/13/2022 12:44 [facility] RDW-CV 14.4 <14.7 % 11/13/2022 12:44 [facility] RDW-SD 42.5 <50.4 fl 11/13/2022 12:44 [facility] PLT 185 141 - 377 K/cmm 11/13/2022 12:44 [facility] MPV 11.2 9.5 - 12.7 fL 11/13/2022 12:44 [facility] Nucleated Red Blood Cells 2(H) <=0 /100WBC'S 11/13/2022 12:44 [facility] Blood VENOUS BLOOD / Unknown Venipuncture / Unknown 11/13/2022 11:45 EDT 11/13/2022 12:30 EDT Stephon Sosa HEMATOLOGY & PF4 ORD ERABLES [facility] [address] [place] [address] * ECG REPORT - SCANNED (11/13/2022 9:56 EDT) 11/13/2022 9:56 EDT Scan 2 Auditor/Quality PROCEDURE/MINOR CROW GICAL ORDERABLES * (ABNORMAL) POCT GLUCOSE, INTERFACED (11/13/2022 8:09 EDT) [facility] Glucose, POC 177(H) 70 - 100 mg/dL 11/13/2022 8:10 EDT [facility] HN LAB POC COMMENT (GLUCOSE) Test Performed by Nursing Services 11/13/2022 8:10 EDT [facility] Blood CAPILLARY BLOOD / Unknown 11/13/2022 8:09 EDT 11/13/2022 8:10 EDT Stephon Sosa POINT OF CARE TEST O RDERABLES Performing Organization Address City/[facility]/ZIP Co de Phone Number [facility] [address] [place] [address] * SLIDE REQUEST (11/13/2022 6:28 EDT) [facility] Note A smear is filed in the Hematology lab. 11/13/2022 7:31 EDT [facility] Blood VENOUS BLOOD / Unknown Venipuncture / Unknown 11/13/2022 6:28 EDT 11/13/2022 7:05 EDT Stephon Sosa HEMATOLOGY & PF4 ORD ERABLES Performing Organization Address City/[facility]/ZIP Co de Phone Number [facility] [address] [place] [address] * (ABNORMAL) COMPLETE BLOOD COUNT (11/13/2022 6:28 EDT) [facility] WBC 23.98(H) 4.00 - 12.40 K/cmm 11/13/2022 7:11 T [facility] RBC 2.68(L) 3.86 - 5.04 M/cmm 11/13/2022 7:11 [facility] Hemoglobin 8.4(L) 11.6 - 15.2 g/dL 11/13/2022 7:11 [facility] HCT 23.2(L) 34.9 - 44.4 % 11/13/2022 7:11 [facility] MCV 87 81 - 98 fL 11/13/2022 7:11 EDT [facility] MCH 31.3 26.7 - 33.3 pg 11/13/2022 7:11 [facility] MCHC 36.2(H) 32.1 - 35.9 g/dL 11/13/2022 7:11 [facility] RDW-CV 14.4 <14.7 % 11/13/2022 7:11 [facility] RDW-SD 43.9 <50.4 fl 11/13/2022 7:11 [facility] PLT 172 141 - 377 K/cmm 11/13/2022 7:11 [facility] MPV 12.0 9.5 - 12.7 fL 11/13/2022 7:11 [facility] Nucleated Red Blood Cells 1(H) <=0 /100WBC'S 11/13/2022 7:11 [facility] Blood VENOUS BLOOD / Unknown Venipuncture / Unknown 11/13/2022 6:28 EDT 11/13/2022 7:05 EDT Stephon Sosa HEMATOLOGY & PF4 ORD ERABLES Performing Organization Address [facility] Co de Phone Number [facility] [address] [place] [address] * (ABNORMAL) POCT GLUCOSE, INTERFACED (11/13/2022 6:14 EDT) Glucose, POC 174(H) 70 - 100 mg/dL 11/13/2022 6:15 EDT [facility] HN LAB POC COMMENT (GLUCOSE) Test Performed by Nursing Services 11/13/2022 6:15 EDT [facility] Blood CAPILLARY BLOOD / Unknown 11/13/2022 6:14 EDT 11/13/2022 6:14 EDT Stephon Sosa POINT OF CARE TEST O RDERABLES Performing Organization Address City/[facility]/ZIP Co de Phone Number [facility] [address] [place] [address] * (ABNORMAL) POCT GLUCOSE, INTERFACED (11/12/2022 23:54 EDT) Pathologist [facility] Glucose, POC 173(H) 70 - 100 mg/dL 11/12/2022 23:55 EDT [facility] HN LAB POC COMMENT (GLUCOSE) Test Performed by Nursing Services 11/12/2022 23:55 EDT [facility] Blood CAPILLARY BLOOD / Unknown 11/12/2022 23:54 EDT 11/12/2022 23:55 EDT Stephon Sosa POINT OF CARE TEST O RDERABLES Performing Organization Address City/[facility]/ZIP Co de Phone Number [facility] [address] [place] [address] * SLIDE REQUEST (11/12/2022 23:51 EDT) [facility] Note A smear is filed in the Hematology lab. 11/13/2022 0:32 EDT [facility] Blood VENOUS BLOOD / Unknown Venipuncture / Unknown 11/12/2022 23:51 EDT 11/13/2022 0:01 EDT Stephon Sosa HEMATOLOGY & PF4 ORD ERABLES Performing Organization Address City/[facility]/ZIP Co de Phone Number [facility] [address] [place] [address] * (ABNORMAL) COMPLETE BLOOD COUNT (11/12/2022 23:51 EDT) [facility] WBC 23.57(H) 4.00 - 12.40 K/cmm 11/13/2022 0:08 EDT [facility] RBC 2.74(L) 3.86 - 5.04 M/cmm 11/13/2022 0:08 EDT [facility] Hemoglobin 8.1(L) 11.6 - 15.2 g/dL 11/13/2022 0:08 EDT [facility] HCT 23.5(L) 34.9 - 44.4 % 11/13/2022 0:08 [facility] MCV 86 81 - 98 fL 11/13/2022 0:08 [facility] MCH 29.6 26.7 - 33.3 pg 11/13/2022 0:08 [facility] MCHC 34.5 32.1 - 35.9 g/dL 11/13/2022 0:08 [facility] RDW-CV 14.3 <14.7 % 11/13/2022 0:08 [facility] RDW-SD 43.6 <50.4 fl 11/13/2022 0:08 [facility] PLT 174 141 - 377 K/cmm 11/13/2022 0:08 [facility] MPV 11.3 9.5 - 12.7 fL 11/13/2022 0:08 [facility] Nucleated Red Blood Cells 1(H) <=0 /100WBC'S 11/13/2022 0:08 [facility] Blood VENOUS BLOOD / Unknown Venipuncture / Unknown 11/12/2022 23:51 EDT 11/13/2022 0:01 EDT Stephon Sosa HEMATOLOGY & PF4 ORD ERABLES Performing Organization Address City/State/[facility] Co de Phone Number [facility] [address] [place] [address] * UPPER ENDOSCOPY PROCEDURE (11/12/2022 20:51 EDT) [...] 70 - 100 mg/dL 11/12/2022 20:24 EDT [facility] HN LAB POC COMMENT (GLUCOSE) Test Performed by Nursing Services 11/12/2022 20:24 EDT [facility] Blood CAPILLARY BLOOD / Unknown 11/12/2022 20:24 EDT 11/12/2022 20:24 EDT Stephon Sosa POINT OF CARE TEST O RDERABLES Performing Organization Address City/[facility]/ZIP Co de Phone Number [facility] [address] [place] [address] * SLIDE REQUEST (11/12/2022 19:39 EDT) Note A smear is filed in the Hematology lab. 11/12/2022 21:28 EDT [facility] Blood VENOUS BLOOD / Unknown Finger/Heel Stick / Unknown 11/12/2022 19:39 EDT 11/12/2022 20:02 EDT Stephon Sosa HEMATOLOGY & PF4 ORD ERABLES Performing Organization Address [facility] de Phone Number [facility] [address] [place] [address] * (ABNORMAL) COMPLETE BLOOD COUNT (11/12/2022 19:39 EDT) WBC 28.23(H) 4.00 - 12.40 K/cmm 11/12/2022 20:42 [facility] RBC 3.14(L) 3.86 - 5.04 M/cmm 11/12/2022 20:42 [facility] Hemoglobin 9.7(L) 11.6 - 15.2 g/dL 11/12/2022 20:42 [facility] HCT 27.5(L) 34.9 - 44.4 % 11/12/2022 20:42 [facility] MCV 88 81 - 98 fL 11/12/2022 20:42 [facility] MCH 30.9 26.7 - 33.3 pg 11/12/2022 20:42 [facility] MCHC 35.3 32.1 - 35.9 g/dL 11/12/2022 20:42 [facility] RDW-CV 14.3 <14.7 % 11/12/2022 20:42 [facility] RDW-SD 43.3 <50.4 fl 11/12/2022 20:42 EDT [facility] PLT 137(L) 141 - 377 K/cmm 11/12/2022 20:42 EDT [facility] MPV 11.9 9.5 - 12.7 fL 11/12/2022 20:42 EDT [facility] Nucleated Red Blood Cells 2(H) <=0 /100WBC'S 11/12/2022 20:42 EDT [facility] Blood VENOUS BLOOD / Unknown Finger/Heel Stick / Unknown 11/12/2022 19:39 EDT 11/12/2022 20:02 EDT Stephon Sosa HEMATOLOGY & PF4 ORD ERABLES Performing Organization Address [facility] Co de Phone Number [facility] [address] [place] [address] * (ABNORMAL) POCT GLUCOSE, INTERFACED (11/12/2022 18:27 EDT) Glucose, POC 225(H) 70 - 100 mg/dL 11/12/2022 18:28 EDT [facility] HN LAB POC COMMENT (GLUCOSE) Test Performed by Nursing Services 11/12/2022 18:28 EDT [facility] Blood CAPILLARY BLOOD / Unknown 11/12/2022 18:27 EDT 11/12/2022 18:28 EDT Stephon Sosa POINT OF CARE TEST O RDERABLES Performing Organization Address City/[facility]/ZIP Co de Phone Number [facility] [address] [place] [address] * TRANSFUSE RED BLOOD CELLS (11/12/2022 15:38 [...] 70 - 100 mg/dL 11/12/2022 12:05 EDT [facility] HN LAB POC COMMENT (GLUCOSE) Test Performed by Nursing Services 11/12/2022 12:05 EDT [facility] Blood CAPILLARY BLOOD / Unknown 11/12/2022 12:04 EDT 11/12/2022 12:05 EDT Stephon Sosa POINT OF CARE TEST O RDERABLES Performing Organization Address City/[facility]/ZIP Co de Phone Number [facility] [address] [place] [address] * SLIDE REQUEST (11/12/2022 11:47 EDT) Note A smear is filed in the Hematology lab. 11/12/2022 12:27 EDT [facility] Blood VENOUS BLOOD / Unknown Venipuncture / Unknown 11/12/2022 11:47 EDT 11/12/2022 11:56 EDT Stephon Sosa HEMATOLOGY & PF4 ORD ERABLES [facility] [address] [place] [address] * MAGNESIUM (11/12/2022 11:47 EDT) Magnesium 2.1 1.7 - 2.8 mg/dL 11/12/2022 12:19 [facility] Blood VENOUS BLOOD / Unknown Venipuncture / Unknown 11/12/2022 11:47 EDT 11/12/2022 11:56 EDT Stephon Sosa CHEMISTRY & BLOOD NH S ORDERABLES [facility] [address] [place] [address] * (ABNORMAL) BASIC METABOLIC PANEL (BMP) (11/12/2022 11:47 EDT) Sodium 136 136 - 145 mmol/L 11/12/2022 12:19 [facility] Potassium 4.6 3.5 - 5.0 mmol/L 11/12/2022 12:19 [facility] Chloride 107 96 - 110 mmol/L 11/12/2022 12:19 [facility] CO2 Total 21(L) 22 - 32 mmol/L 11/12/2022 12:19 [facility] Anion Gap 8 5 - 14 mmol/L 11/12/2022 12:19 [facility] Glucose 274(H) 70 - 100 mg/dl 11/12/2022 12:19 [facility] Calcium 9.2 8.5 - 10.5 mg/dL 11/12/2022 12:19 [facility] BUN 46(H) 10 - 26 mg/dL 11/12/2022 12:19 [facility] Creatinine 1.07(H) 0.52 - 1.04 mg/dL 11/12/2022 12:19 [facility] eGFR 56(L) >60 mL/min/1.73 m2 11/12/2022 12:19 [facility] Blood VENOUS BLOOD / Unknown Venipuncture / Unknown 11/12/2022 11:47 EDT 11/12/2022 11:56 EDT Stephon Sosa CHEMISTRY & BLOOD [facility] S ORDERABLES [facility] [address] [place] [address] * (ABNORMAL) COMPLETE BLOOD COUNT (11/12/2022 11:47 EDT) WBC 25.10(H) 4.00 - 12.40 K/cmm 11/12/2022 12:08 [facility] RBC 2.27(L) 3.86 - 5.04 M/cmm 11/12/2022 12:08 [facility] Hemoglobin 6.9(LL) 11.6 - 15.2 g/dL 11/12/2022 12:08 [facility] HCT 19.9(LL) 34.9 - 44.4 % 11/12/2022 12:08 [facility] MCV 88 81 - 98 fL 11/12/2022 12:08 [facility] MCH 30.4 26.7 - 33.3 pg 11/12/2022 12:08 [facility] [facility] MCHC 34.7 32.1 - 35.9 g/dL 11/12/2022 12:08 [facility] RDW-CV 14.6 <14.7 % 11/12/2022 12:08 [facility] RDW-SD 45.0 <50.4 fl 11/12/2022 12:08 [facility] PLT 221 141 - 377 K/cmm 11/12/2022 12:08 [facility] MPV 11.5 9.5 - 12.7 fL 11/12/2022 12:08 [facility] Nucleated Red Blood Cells 1(H) <=0 /100WBC'S 11/12/2022 12:08 [facility] Blood VENOUS BLOOD / Unknown Venipuncture / Unknown 11/12/2022 11:47 EDT 11/12/2022 11:56 EDT Stephon Sosa HEMATOLOGY & PF4 ORD ERABLES [facility] [address] [place] [address] * CALCIUM, IONIZED (11/12/2022 11:46 EDT) Calcium, Ionized 1.23 1.14 - 1.35 mmol/L 11/12/2022 12:12 EDT [facility] Blood VENOUS BLOOD / Unknown Venipuncture / Unknown 11/12/2022 11:46 EDT 11/12/2022 11:56 EDT Stephon Lang CHEMISTRY & BLOOD GA S ORDERABLES Performing Organization Address City/[facility] Co de Phone Number [facility] [address] [place] [address] * PREPARE RED BLOOD CELLS (11/12/2022 9:57 EDT) Product Code [id number] [facility] Donor Number [id number] [facility] Unit ABO A [facility] Unit Rh NEG [facility] [place] Unit Status TR^Transfuse [facility] BLOOD BANK Product Expiration Date [id number] [facility] Unit Blood Type Code 0600 [facility] Volume 275 [facility] Coding System [id number] [facility]OD [facility] 11/12/2022 9:57 EDT Stephon Lena BLOOD BANK ORDERABLE S [facility] [address] [facility] [place] [address] * PREPARE RED BLOOD CELLS (11/12/2022 9:57 EDT) Product Code [id number] [facility] Donor Number [id number] [facility] BLOOD B[facility] Unit ABO O [facility] [place] [facility] Unit Rh NEG [facility] [place] [facility] Unit Status TR^Transfuse [facility] BLOOD BANK Product Expiration Date [id number] [facility] Unit Blood Type Code 9500 [facility] Volume [facility] Coding System [id number] [facility] Blood 11/12/2022 9:57 EDT Stephon Sosa BLOOD BANK ORDERABLE S [facility] [address] [place] [address] * EKG 12-LEAD (11/12/2022 9:47 EDT) 11/12/2022 9:47 EDT Narrative [facility] EKG - 11/13/2022 9:51 EDT ? [facility] ? Test Date: ?2022-11-12 Pat Name: ? Fortunato Tanner ?Department: ?? [facility] [address] ? Room: ? Gender: ? Female ? Communications Planner: ?? : ?1950 ? Requested By: RAJINDER GLEZ MD Order Number: ?Reading : ?? EDGARDO MACARIO MD ? Measurements Intervals ?Hallie ? Rate: ? 91 ? P: ?71 DE: ? 244 ?QRS: ?-14 QRSD: ? 121 [...] Note Edgardo Macario MD - 11/13/2022 [facility] Test Date: 2022-11-12 Pat Name: Fortunato Tanner Department: [place] [address] Room: Gender: Female Communications Planner: : 1950 Requested By: RAJINDER LGEZ MD Order Number: Reading MD: EDGARDO MACARIO MD Measurements Intervals Hallie Rate: 91 P: 71 DE: 244 QRS: -14 QRSD: 121 T: 143 [...] CARDIAC ECG ORDERABL ES Performing Organization Address [facility]/ZIP Co de Phone Number [facility] E[facility] * (ABNORMAL) POCT GLUCOSE, INTERFACED (11/12/2022 9:44 EDT) Glucose, POC 223(H) 70 - 100 mg/dL 11/12/2022 9:45 EDT [facility] HN LAB POC COMMENT (GLUCOSE) Test Performed by Nursing Services 11/12/2022 9:45 EDT [facility] Blood CAPILLARY BLOOD / Unknown 11/12/2022 9:44 EDT 11/12/2022 9:45 EDT Rajinder Glez MD POINT OF CARE TEST O RDERABLES [facility] [address] [place] [address] * SLIDE REQUEST (11/12/2022 9:24 EDT) Note A smear is filed in the Hematology lab. 11/12/2022 10:07 EDT [facility] Blood VENOUS BLOOD / Unknown Venipuncture / Unknown 11/12/2022 9:24 EDT 11/12/2022 9:32 EDT Stephon Sosa HEMATOLOGY & PF4 ORD ERABLES [facility] [address] [place] [address] * (ABNORMAL) COMPLETE BLOOD COUNT (11/12/2022 9:24 EDT) WBC 23.80(H) 4.00 - 12.40 K/cmm 11/12/2022 9:48 EDT [facility] RBC 2.32(L) 3.86 - 5.04 M/cmm 11/12/2022 9:48 EDT [facility] Hemoglobin 7.1(L) 11.6 - 15.2 g/dL 11/12/2022 9:48 EDT [facility] HCT 20.3(LL) 34.9 - 44.4 % 11/12/2022 9:48 EDT [facility] MCV 88 81 - 98 fL 11/12/2022 9:48 EDT [facility] MCH 30.6 26.7 - 33.3 pg 11/12/2022 9:48 EDT [facility] MCHC 35.0 32.1 - 35.9 g/dL 11/12/2022 9:48 EDT [facility] RDW-CV 14.6 <14.7 % 11/12/2022 9:48 EDT [facility] RDW-SD 44.9 <50.4 fl 11/12/2022 9:48 EDT [facility] PLT 215 141 - 377 K/cmm 11/12/2022 9:48 EDT [facility] MPV 11.5 9.5 - 12.7 fL 11/12/2022 9:48 EDT [facility] Nucleated Red Blood Cells 1(H) <=0 /100WBC'S 11/12/2022 9:48 EDT [facility] Blood VENOUS BLOOD / Unknown Venipuncture / Unknown 11/12/2022 9:24 EDT 11/12/2022 9:32 EDT Stephon Sosa HEMATOLOGY & PF4 ORD ERABLES [facility] [address] [place] [address] * PATIENT RE-TYPE (11/12/2022 9:23 EDT) ABO A 11/12/2022 10:38 EDT [facility] Rh Factor Negative 11/12/2022 10:38 EDT [facility] Blood VENOUS BLOOD / Unknown Venipuncture / Unknown 11/12/2022 9:23 EDT 11/12/2022 9:39 EDT Stephon Sosa BLOOD BANK TESTS Performing Organization Address City/[facility]/ZIP Co de Phone Number [facility] [address] [place] [address] * SLIDE REQUEST (11/12/2022 7:23 EDT) Note A smear is filed in the Hematology lab. 11/12/2022 8:06 EDT [facility] Blood VENOUS BLOOD / Unknown Venipuncture / Unknown 11/12/2022 7:23 EDT 11/12/2022 7:31 EDT Stephon Sosa HEMATOLOGY & PF4 ORD ERABLES Performing Organization Address City/[facility]/ZIP Co de Phone Number [facility] [address] [place] [address] * (ABNORMAL) COMPLETE BLOOD COUNT (11/12/2022 7:23 EDT) WBC 25.34(H) 4.00 - 12.40 K/cmm 11/12/2022 7:49 EDT [facility] RBC 2.30(L) 3.86 - 5.04 M/cmm 11/12/2022 7:49 EDT [facility] Hemoglobin 7.1(L) 11.6 - 15.2 g/dL 11/12/2022 7:49 EDT [facility] HCT 20.0(LL) 34.9 - 44.4 % 11/12/2022 7:49 EDT [facility] MCV 87 81 - 98 fL 11/12/2022 7:49 EDT [facility] MCH 30.9 26.7 - 33.3 pg 11/12/2022 7:49 T [facility] MCHC 35.5 32.1 - 35.9 g/dL 11/12/2022 7:49 EDT [facility] RDW-CV 14.5 <14.7 % 11/12/2022 7:49 T [facility] RDW-SD 44.6 <50.4 fl 11/12/2022 7:49 T [facility] PLT 189 141 - 377 K/cmm 11/12/2022 7:49 [facility] MPV 11.2 9.5 - 12.7 fL 11/12/2022 7:49 [facility] Nucleated Red Blood Cells 1(H) <=0 /100WBC'S 11/12/2022 7:49 T [facility] Blood VENOUS BLOOD / Unknown Venipuncture / Unknown 11/12/2022 7:23 EDT 11/12/2022 7:31 EDT Stephon Sosa HEMATOLOGY & PF4 ORD ERABLES Performing Organization Address [facility]/State/ZIP Co de Phone Number [facility] [address] [place] [address] * (ABNORMAL) POCT GLUCOSE, INTERFACED (11/12/2022 6:09 EDT) Glucose, POC 212(H) 70 - 100 mg/dL 11/12/2022 6:10 EDT [facility] HN LAB POC COMMENT (GLUCOSE) Test Performed by Nursing Services 11/12/2022 6:10 EDT [facility] Blood CAPILLARY BLOOD / Unknown 11/12/2022 6:09 EDT 11/12/2022 6:10 EDT Stephon Sosa POINT OF CARE TEST O RDERABLES [facility] [address] [place] [address] * POC US VAT LINE PLACEMENT (11/12/2022 3:25 EDT) Narrative 11/12/2022 3:25 EDT This is a non-reportable exam. Rajinder Glez MD IMG US POC ORDERABLE S * COMPLETE BLOOD COUNT (11/12/2022 3:22 EDT) WBC 11/12/2022 4:13 EDT [facility] Comment: Clotted This is a corrected result. Previous result was 24.80 K/cmm on 11/12/2022 at 0401 EDT RBC 11/12/2022 4:13 [facility] Comment: Clotted This is a corrected result. Previous result was 2.29 M/cmm on 11/12/2022 at 0401 EDT Hemoglobin 11/12/2022 4:13 T [facility] Comment: Clotted This is a corrected result. Previous result was 7.1 g/dL on 11/12/2022 at 0401 EDT HCT 11/12/2022 4:13 T [facility] Comment: Clotted This is a corrected result. Previous result was 19.7 % on 11/12/2022 at 0401 EDT MCV 11/12/2022 4:13 T [facility] Comment: Clotted This is a corrected result. Previous result was 86 fL on 11/12/2022 at 0401 EDT MCH 11/12/2022 4:13 T [facility] Comment: Clotted This is a corrected result. Previous result was 31.0 pg on 11/12/2022 at 0401 EDT Hypochromia 11/12/2022 4:13 T [facility] Comment:Clotted MCHC 11/12/2022 4:13 T [facility] Comment: Clotted This is a corrected result. Previous result was 36.0 g/dL on 11/12/2022 at 0401 EDT RDW-CV 11/12/2022 4:13 EDT [facility] Comment: Clotted This is a corrected result. Previous result was 14.3 % on 11/12/2022 at 0401 EDT RDW-SD 11/12/2022 4:13 EDT [facility] Comment: Clotted This is a corrected result. Previous result was 43.7 fl on 11/12/2022 at 0401 EDT Anisocytosis 11/12/2022 4:13 EDT [facility] Comment:Clotted PLT 11/12/2022 4:13 EDT [facility] Comment: Clotted This is a corrected result. Previous result was 179 K/cmm on 11/12/2022 at 0401 EDT MPV 11/12/2022 4:13 T [facility] Comment: Clotted This is a corrected result. Previous result was 11.4 fL on 11/12/2022 at 0401 EDT Blood VENOUS BLOOD / Unknown Venipuncture / Unknown 11/12/2022 3:22 EDT 11/12/2022 3:36 EDT Stephon Sosa HEMATOLOGY & PF4 ORD ERABLES Performing Organization Address City/[facility]/ZIP Co de Phone Number [facility] [address] [place] [address] * (ABNORMAL) POCT GLUCOSE, INTERFACED (11/12/2022 0:15 EDT) Glucose, POC 243(H) 70 - 100 mg/dL 11/12/2022 0:16 EDT [facility] HN LAB POC COMMENT (GLUCOSE) Test Performed by Nursing Services 11/12/2022 0:16 EDT [facility] Blood CAPILLARY BLOOD / Unknown 11/12/2022 0:15 EDT 11/12/2022 0:16 EDT Stephon Sosa POINT OF CARE TEST O RDERABLES Performing Organization Address City/[facility]/ZIP Co de Phone Number [facility] [address] [place] [address] * (ABNORMAL) POCT GLUCOSE, INTERFACED (11/11/2022 20:49 EDT) Glucose, POC 209(H) 70 - 100 mg/dL 11/11/2022 20:50 EDT [facility] HN LAB POC COMMENT (GLUCOSE) Test Performed by Nursing Services 11/11/2022 20:50 EDT [facility] Blood CAPILLARY BLOOD / Unknown 11/11/2022 20:49 EDT 11/11/2022 20:50 EDT Rajinder Glez MD POINT OF CARE TEST O RDERABLES Performing Organization Address [facility] Co de Phone Number [facility] [address] [place] [address] * (ABNORMAL) TROPONIN I (11/11/2022 20:44 EDT) [facility] Troponin I (ng/mL) 32.500(H) <0.034 ng/mL 11/12/2022 8:32 EDT [facility] Blood VENOUS BLOOD / Unknown Venipuncture / Unknown 11/11/2022 20:44 EDT 11/11/2022 20:49 EDT Narrative [facility] - 11/12/2022 8:32 EDT The results of this assay can be falsely lowered due to the consumption of Biotin. Stephon Sosa CHEMISTRY & BLOOD GA S ORDERABLES Performing Organization Address [facility]/ZIP Co de Phone Number [facility] [address] [place] [address] * (ABNORMAL) LACTIC ACID (11/11/2022 20:44 EDT) Lactic Acid 3.2(HH) <=2.0 mmol/L 11/11/2022 21:11 EDT [facility] Blood VENOUS BLOOD / Unknown Venipuncture / Unknown 11/11/2022 20:44 EDT 11/11/2022 20:49 EDT Miguel Gandhi MD CHEMISTRY & BLOOD GA S ORDERABLES [facility] [address] [place] [address] * (ABNORMAL) BASIC METABOLIC PANEL (BMP) (11/11/2022 20:44 EDT) Sodium 139 136 - 145 mmol/L 11/11/2022 21:09 [facility] Potassium 4.4 3.5 - 5.0 mmol/L 11/11/2022 21:09 [facility] Chloride 111(H) 96 - 110 mmol/L 11/11/2022 21:09 [facility] CO2 Total 19(L) 22 - 32 mmol/L 11/11/2022 21:09 [facility] Anion Gap 9 5 - 14 mmol/L 11/11/2022 21:09 [facility] Glucose 242(H) 70 - 100 mg/dl 11/11/2022 21:09 [facility] Calcium 8.8 8.5 - 10.5 mg/dL 11/11/2022 21:09 [facility] BUN 48(H) 10 - 26 mg/dL 11/11/2022 21:09 [facility] Creatinine 1.07(H) 0.52 - 1.04 mg/dL 11/11/2022 21:09 [facility] eGFR 56(L) >60 mL/min/1.73 m2 11/11/2022 21:09 [facility] Blood VENOUS BLOOD / Unknown Venipuncture / Unknown 11/11/2022 20:44 EDT 11/11/2022 20:49 EDT Miguel Gandhi MD CHEMISTRY & BLOOD GA S ORDERABLES [facility] [address] [place] [address] * (ABNORMAL) POCT GLUCOSE, INTERFACED (11/11/2022 18:26 EDT) Glucose, POC 233(H) 70 - 100 mg/dL 11/11/2022 18:27 EDT [facility] HN LAB POC COMMENT (GLUCOSE) Test Performed by Nursing Services 11/11/2022 18:27 T [facility] Blood CAPILLARY BLOOD / Unknown 11/11/2022 18:26 EDT 11/11/2022 18:27 EDT Stephon Sosa POINT OF CARE TEST O RDERABLES [facility] [address] [place] [address] * (ABNORMAL) COMPLETE BLOOD COUNT (11/11/2022 18:22 EDT) WBC 14.72(H) 4.00 - 12.40 K/cmm 11/11/2022 18:35 [facility] RBC 2.83(L) 3.86 - 5.04 M/cmm 11/11/2022 18:35 [facility] Hemoglobin 8.6(L) 11.6 - 15.2 g/dL 11/11/2022 18:35 [facility] HCT 24.7(L) 34.9 - 44.4 % 11/11/2022 18:35 [facility] MCV 87 81 - 98 fL 11/11/2022 18:35 [facility] MCH 30.4 26.7 - 33.3 pg 11/11/2022 18:35 [facility] MCHC 34.8 32.1 - 35.9 g/dL 11/11/2022 18:35 [facility] RDW-CV 14.2 <14.7 % 11/11/2022 18:35 [facility] RDW-SD 43.8 <50.4 fl 11/11/2022 18:35 [facility] PLT 194 141 - 377 K/cmm 11/11/2022 18:35 [facility] MPV 11.1 9.5 - 12.7 fL 11/11/2022 18:35 EDT [facility] Nucleated Red Blood Cells 1(H) <=0 /100WBC'S 11/11/2022 18:35 EDT [facility] Blood VENOUS BLOOD / Unknown IV Draw / Unknown 11/11/2022 18:22 EDT 11/11/2022 18:30 EDT Stephon Sosa HEMATOLOGY & PF4 ORD ERABLES Performing Organization Address City/[facility]/ZIP Co de Phone Number [facility] [address] [place] [address] * (ABNORMAL) LACTIC ACID (11/11/2022 18:22 EDT) Lactic Acid 3.9(HH) <=2.0 mmol/L 11/11/2022 19:02 EDT [facility] Blood VENOUS BLOOD / Unknown IV Draw / Unknown 11/11/2022 18:22 EDT 11/11/2022 18:30 EDT Stephon Sosa CHEMISTRY & BLOOD GA S ORDERABLES Performing Organization Address [facility] Co de Phone Number [facility] [address] [place] [address] * TRANSTHORACIC ECHO (TTE) COMPLETE W/DOPPLER W/CF [...] color Doppler.The study was interpreted by [facility]. Pertinent images and digital data [...] 14:07 EDT) 11/11/2022 14:0 7 EDT Narrative [facility] EKG - 12/01/2022 17:21 EDT ? [facility] ? Test Date: ?2022-11-11 Pat Name: ? FORTUNATO TANNER ?Department: ?? Destin Maldonado ? Room: ? M407 Gender: ? Female ? Communications Planner: ?? : ?1950 ? Requested By: LENA LAURENT Order Number: [id number] ? Reading MD: ?? GITA WESTBROOK MD ? Measurements Intervals ?Hallie ? Rate: ? 83 ? P: ? DE: ? 0 ?QRS: ?12 QRSD: ? 117 [...] Note Gita Westbrook MD - 12/01/2022 [facility] Test Date: 2022-11-11 Pat Name: FORTUNATO HART Department: [place] [address] Room: [facility] Gender: Female Communications Planner: : 1950 Requested By: LENA LAURENT Order Number: [id number] Reading MD: GITA WESTBROOK MD Measurements Intervals Hallie Rate: 83 P: DE: 0 QRS: 12 QRSD: 117 T: 148 [...] 12-01-2022 17:21:11 EDT by MOHAMUD HAY. Stephon Sosa CARDIAC ECG ORDERABL ES [facility] * (ABNORMAL) POCT GLUCOSE, INTERFACED (11/11/2022 13:35 EDT) Glucose, POC 272(H) 70 - 100 mg/dL 11/11/2022 13:36 EDT [facility] HN LAB POC COMMENT (GLUCOSE) Test Performed by Nursing Services 11/11/2022 13:36 EDT [facility] Blood CAPILLARY BLOOD / Unknown 11/11/2022 13:35 EDT 11/11/2022 13:36 EDT Rajinder Glez MD POINT OF CARE TEST O RDERABLES [facility] [address] [place] [address] * (ABNORMAL) COMPREHENSIVE METABOLIC PANEL (CMP) (11/11/2022 13:24 EDT) Sodium 139 136 - 145 mmol/L 11/11/2022 15:07 [facility] Potassium 4.6 3.5 - 5.0 mmol/L 11/11/2022 15:07 [facility] Chloride 108 96 - 110 mmol/L 11/11/2022 15:07 [facility] CO2 Total 16(L) 22 - 32 mmol/L 11/11/2022 15:07 [facility] Glucose 298(H) 70 - 100 mg/dl 11/11/2022 15:07 [facility] BUN 50(H) 10 - 26 mg/dL 11/11/2022 15:07 [facility] Creatinine 1.17(H) 0.52 - 1.04 mg/dL 11/11/2022 15:07 [facility] eGFR 50(L) >60 mL/min/1.7 3m2 11/11/2022 15:07 [facility] Total Protein 5.3(L) 6.3 - 8.2 g/dL 11/11/2022 15:07 [facility] Albumin 3.2(L) 3.4 - 4.9 g/dL 11/11/2022 15:07 [facility] Alkaline Phosphatase 33(L) 38 - 126 U/L 11/11/2022 15:07 [facility] AST 101(H) 15 - 46 U/L 11/11/2022 15:07 [facility] ALT 49(H) <35 U/L 11/11/2022 15:07 [facility] Bilirubin, Total 0.7 <1.4 mg/dL 11/12/19 15:07 [facility] Calcium 8.7 8.5 - 10.5 mg/dL 11/11/2022 15:07 EDT [facility] Albumin/Globulin Ratio 1.5 1.0 - 2.5 11/11/2022 15:07 EDT [facility] Anion Gap 15(H) 5 - 14 mmol/L 11/11/2022 15:07 EDT [facility] Blood VENOUS BLOOD / Unknown IV Draw / Unknown 11/11/2022 13:24 EDT 11/11/2022 13:35 EDT Stephon Sosa CHEMISTRY & BLOOD GA S ORDERABLES Performing Organization Address [facility] Co de Phone Number [facility] [address] [place] [address] * HEPARIN LEVEL - UNFRACTIONATED HEPARIN (11/11/2022 13:24 EDT) Heparin Level-UFH 0.23 Therapeutic Range: 0.30 - 0.70 IU/mL 11/11/2022 14:23 EDT [facility] Comment:Unfractionated hepar in therapeutic [...] 11/11/2022 13:24 EDT 11/11/2022 13:35 EDT Narrative [facility] - 11/11/2022 14:23 EDT Slight hemolysis present Sample retested, result confirmed Reilly Conroy MD HEMATOLOGY & PF4 ORD ERABLES Performing Organization Address City/[facility]/ZIP Co de Phone Number [facility] [address] [place] [address] * (ABNORMAL) HEMOGLOBIN A1C (11/11/2022 13:24 EDT) Hemoglobin A1c 7.1(H) <5.7 % 11/11/2022 16:36 EDT [facility] Comment: Glycemic Status References: Normal: ??<5.7% Pre-Diabetes: ??5.7% - 6.4% Diagnostic of Diabetes: ??> or = 6.5% (if confirmed) Est Avg Glucose 157 mg/dL 16:36 EDT [facility] Comment:The eAG represents t he A1c result expressed as average glucose in mg/dL. Blood VENOUS BLOOD / Unknown IV Draw / Unknown 11/11/2022 13:24 EDT 11/11/2022 13:35 EDT Stephon Sosa CHEMISTRY & BLOOD GA S ORDERABLES Performing Organization Address [facility] Co de Phone Number [facility] [address] [place] [address] * MRSA PCR (11/11/2022 13:24 EDT) MRSA/Staph aureus Result No Staphylococcus aureus detected by PCR 11/11/2022 21:13 EDT [facility] Swab ENTIRE NARIS / Unknown Swab / Unknown 11/11/2022 13:24 EDT 11/11/2022 14:06 EDT Stephon Sosa MICROBIOLOGY - GENER AL ORDERABLES Performing Organization Address [facility] Co de Phone Number [facility] [address] [place] [address] * (ABNORMAL) LACTIC ACID (11/11/2022 13:24 EDT) Lactic Acid 5.0(HH) <=2.0 mmol/L 11/11/2022 13:53 EDT [facility] Blood VENOUS BLOOD / Unknown IV Draw / Unknown 11/11/2022 13:24 EDT 11/11/2022 13:35 EDT Stephon Sosa CHEMISTRY & BLOOD GA S ORDERABLES Performing Organization Address [facility] de Phone Number [facility] [address] [place] [address] * MAGNESIUM (11/11/2022 13:24 EDT) Magnesium 2.0 1.7 - 2.8 mg/dL 11/11/2022 13:51 EDT [facility] Blood VENOUS BLOOD / Unknown IV Draw / Unknown 11/11/2022 13:24 EDT 11/11/2022 13:35 EDT Stephon Sosa CHEMISTRY & BLOOD GA S ORDERABLES Performing Organization Address [facility] de Phone Number [facility] [address] [place] [address] * (ABNORMAL) TROPONIN I (11/11/2022 13:24 EDT) Troponin I (ng/mL) 34.700(H) <0.034 ng/mL 11/11/2022 14:04 EDT [facility] Blood VENOUS BLOOD / Unknown IV Draw / Unknown 11/11/2022 13:24 EDT 11/11/2022 13:35 EDT Narrative [facility] - 11/11/2022 14:04 EDT The results of this assay can be falsely lowered due to the consumption of Biotin. Stephon Sosa CHEMISTRY & BLOOD GA S ORDERABLES Performing Organization Address [facility] de Phone Number [facility] [address] [place] [address] * (ABNORMAL) PTT (11/11/2022 13:24 EDT) PTT 22(L) 26 - 37 secs 11/11/2022 14:03 EDT [facility] Blood VENOUS BLOOD / Unknown IV Draw / Unknown 11/11/2022 13:24 EDT 11/11/2022 13:35 EDT Stephon Sosa HEMATOLOGY & PF4 ORD ERABLES [facility] [address] [place] [address] * FIBRINOGEN (11/11/2022 13:24 EDT) Pathologist [facility] Fibrinogen 245 171 - 384 mg/dL 11/11/2022 14:01 EDT [facility] Blood VENOUS BLOOD / Unknown IV Draw / Unknown 11/11/2022 13:24 EDT 11/11/2022 13:35 EDT Stephon Sosa HEMATOLOGY & PF4 ORD ERABLES Performing Organization Address [facility] Co de Phone Number [facility] [address] [place] [address] * (ABNORMAL) PROTIME (11/11/2022 13:24 EDT) [facility] I.N.R. 1.2(H) 0.9 - 1.1 Ratio 11/11/2022 14:03 EDT [facility] Pro Time 13.5(H) 9.7 - 12.8 secs 11/11/2022 14:03 EDT [facility] Blood VENOUS BLOOD / Unknown IV Draw / Unknown 11/11/2022 13:24 EDT 11/11/2022 13:35 EDT Narrative [facility] - 11/11/2022 14:03 EDT Moderate Intensity Coumadin INR = 2.0-3.0 Adjustments in anticoagulant therapy dose should be based on the INR and NOT on the Protime. Stephon Sosa HEMATOLOGY & PF4 ORD ERABLES Performing Organization Address City/[facility] Co de Phone Number [facility] [address] [place] [address] * (ABNORMAL) COMPLETE BLOOD COUNT AND DIFFERENTIAL (11/11/2022 13:24 EDT) WBC 14.11(H) 4.00 - 12.40 K/cmm 11/11/2022 14:11 EDT [facility] RBC 2.96(L) 3.86 - 5.04 M/cmm 11/11/2022 14:11 [facility] Hemoglobin 9.0(L) 11.6 - 15.2 g/dL 11/11/2022 14:11 [facility] HCT 25.9(L) 34.9 - 44.4 % 11/11/2022 14:11 [facility] MCV 88 81 - 98 fL 11/11/2022 14:11 [facility] MCH 30.4 26.7 - 33.3 pg 11/11/2022 14:11 [facility] MCHC 34.7 32.1 - 35.9 g/dL 11/11/2022 14:11 [facility] RDW-CV 13.9 <14.7 % 11/11/2022 14:11 [facility] RDW-SD 43.2 <50.4 fl 11/11/2022 14:11 [facility] PLT 178 141 - 377 K/cmm 11/11/2022 14:11 [facility] MPV 11.4 9.5 - 12.7 fL 11/11/2022 14:11 [facility] % Neutrophils 74.8 % 11/11/2022 14:11 [facility] % Lymphocytes 17.2 % 11/11/2022 14:11 [facility] % Monocytes 6.4 % 11/11/2022 14:11 [facility] % Eosinophils 0.0 % 11/11/2022 14:11 [facility] % Basophils 0.1 % 11/11/2022 14:11 [facility] % Immature Grans 1.5 % 11/12/19 14:11 [facility] Absolute Neutrophils 10.55(H) 2.20 - 8.85 K/cmm 11/11/2022 14:11 [facility] Absolute Lymphocytes 2.42 1.09 - 3.30 K/cmm 11/11/2022 14:11 [facility] Absolute Monocytes 0.91(H) 0.10 - 0.80 K/cmm 11/11/2022 14:11 T [facility] Absolute Eosinophils 0.00(L) 0.03 - 0.61 K/cmm 11/11/2022 14:11 T [facility] ABS Basophils 0.02 0.01 - 0.11 K/cmm 11/11/2022 14:11 [facility] Absolute Immature Grans 0.21(H) 0.00 - 0.06 K/cmm 11/11/2022 14:11 T [facility] Type of Differential: Auto 11/11/2022 14:11 [facility] Blood VENOUS BLOOD / Unknown IV Draw / Unknown 11/11/2022 13:24 EDT 11/11/2022 13:35 EDT Stephon Sosa PACKAGES & DNA PROBE ORDERABLES Performing Organization Address [facility] Co de Phone Number [facility] [address] [place] [address] * TYPE AND SCREEN (11/11/2022 13:24 EDT) ABO A 11/11/2022 17:07 EDT [facility] Rh Factor Negative 11/11/2022 17:07 T [facility] Antibody Screen Negative 11/11/2022 17:07 [facility] Specimen Expires: 11/14/2022 @ 23:59 11/11/2022 17:07 [facility] Blood VENOUS BLOOD / Unknown IV Draw / Unknown 11/11/2022 13:24 EDT 11/11/2022 13:38 EDT Stephon Sosa BLOOD BANK TESTS Performing Organization Address City/[facility] Co de Phone Number [facility] [address] [place] [address] documented in this encounter Visit Diagnoses Diagnosis Gastrointestinal hemorrhage, unspecified gastrointestinal hemorrhage type Syncope, unspecified syncope type NSTEMI (non-ST elevated myocardial infarction) ([facility]) Acute myocardial infarction, subendocardial infarction, episode of care unspecified Duodenal erosion Duodenal ulcer, unspecified as acute or chronic, without hemorrhage, perforation, or obstruction Esophagitis Esophagitis, unspecified Acute blood loss anemia Acute posthemorrhagic anemia Hypertrophic cardiomyopathy (HCC-CMS) Other hypertrophic cardiomyopathy NSVT (nonsustained ventricular tachycardia) ([facility]) Paroxysmal ventricular tachycardia GI bleed Hemorrhage of gastrointestinal tract, unspecified Syncope Syncope and collapse NSTEMI (non-ST elevated myocardial infarction) ([facility]) Acute myocardial infarction, subendocardial infarction, episode of care unspecified Duodenal erosion Duodenal ulcer, unspecified as acute or chronic, without hemorrhage, perforation, or obstruction Esophagitis Esophagitis, unspecified Acute blood loss anemia Acute posthemorrhagic anemia NSTEMI (non-ST elevated myocardial infarction) ([facility]) Acute myocardial infarction, subendocardial infarction, episode of care unspecified Hypertrophic cardiomyopathy ([facility]) Other hypertrophic cardiomyopathy NSVT (nonsustained ventricular tachycardia) ([facility]) Paroxysmal ventricular tachycardia documented in this encounter [...] Provider: Raad Pritchard, RN)[phone] (Given - Provider: Kalyani Olguin, JALEN)[phone] (Not Given - Provider: Steve [...] 10/20 documented in this encounter Care Teams Trimmer Meat Relationship Specialty Start Date End Date Bryant Crain MD [address] [address] PCP - General 05/04/15 05/17/23 Carlos Macario NP [address] [place] [address] [phone] Consulting Clinician Cardiovascular Disease 09/14/21 documented as of this encounter
--- OUTSIDE RECORDS SUMMARY | 2024-01-12 11:22 | XMS_ITS | Encounter Summary ---
Author Organization [facility] Address [address] [place] [address] Care Team Providers Care Interpretive Program Coordinator Name Role Phone Bryant Crain MD Primary Care Provider [phone] Carlos Ha PER DIEM Unavailable [phone] Encounter Details Date Type Department Care [...] [facility] Cardiology - [facility] [address] [place] [address] 03/08/2024 10:15 EDT Ancillary Procedure [facility] Cardiology - [place] [address] [place] [address] 04/05/2024 10:00 EDT Ancillary Procedure [facility] [address] [place] [phone] 04/05/2024 10:00 EDT Office Visit [facility] [address] [place] [address] Carlos Ha NP [address] [place] [phone] documented as of this encounter Visit Diagnoses Not on filedocumented in this encounter Care Teams Interpretive Program Coordinator Relationship Specialty Start Date End Date Bryant Crain MD [address] [place], [place] [phone] PCP - General 05/04/15 05/17/23 Carlos Ha NP [address] [place] [phone] Consulting Clinician Cardiovascular Disease 09/14/21 documented as of this encounter
--- OUTSIDE RECORDS SUMMARY | 2024-01-12 11:22 | XMS_ITS | Encounter Summary ---
Author Organization [facility] Address [address] [place] [address] Care Team Providers Care Senior Contracts Administrator Name Role Phone Bryant Crain MD Primary Care Provider [phone] Reason for Visit * Reason Comments Diabetes Encounter Details Date Type Department Care Team (Late st Contact Info) Description 08/05/2021 13:00 EST Office Visit [facility] Endocrinology [address] [place] [address] Sarika Zamudio, LODGE OFFICER [address] [facility]- [address] [place] [phone] Type 2 diabetes mellitus with hyperglycemia, with long-term current use of insulin ([facility]) ([facility]) (Primary Dx); Stage 3b chronic kidney disease (HCC); Hypercalcemia; Essential hypertension; Mixed hyperlipidemia; meterman current use of insulin ([facility]) (HCC) Social History Tobacco Use Types Packs/Day [...] Had a1c done this am 6.3 at [facility] Lab Results Component Value Date UABCR 375.4 07/10/2020 HGBA1C 7.0 (A) 03/06/2021 * MargotsherylSarika, JUSTIN - 08/05/2021 1300 EST Reason for Visit: DM f/up PCP: Dr. Crain OTHER PROVIDERS: Carlos Ha NP cardiology Joanna Hart is a 71 y.o. female who presented to the clinic for a follow-up in [facility], with a history of DM for 14 [...] having as many lows with this changes. [facility] DM: unsure if father had DM 4 of her siblings have [facility] Recent A1C: 6.3 (07/2021) 7 (02/2021) 6.9 [...] (within one year): UTD, sees clinic in [place] Last dental exam: overdue. Will schedule. CVD,PVD,CAD: HTN, HLD,CVA Statin: repatha injections, controlled 2021. Aspirin: yes ACEI/ARB: candesartan 32 mg Prior visit with global program manager: yes, JALEN Hyman. Foot care: podiatry Comorbidities: [...] content normal. CGM INTERPRETATION Type of CGM: NewsBreak 2 07/23-08/05/2021 Type of DM: II Diabetic [...] % Final No results found for: MICROALBUR, [id number] Lab Results Component Value Date NA 139 08/01/2021 K 4.9 08/01/2021 CL 105 08/01/2021 CO2 25 08/01/2021 BUN 24 08/01/2021 GLU 199 (H) 11/23/2019 CA 11.2 (H) 11/23/2019 Joanna Hart is a 71 y.o. female who presented to the clinic for a follow-up in [facility], with a history of DM for 14 yrs. Problem List Items Addressed This Visit Endocrine/Metabolic meterman current use of insulin ([facility]) ([facility]) Diabetes mellitus, type 2 ([facility]) - Primary Controlled A1C 6.3 Congratulated on [...] persistently or elevations >200. MALB today. Given [facility] program info to see if qualifies. Relevant Medications empagliflozin (JARDIANCE) 10 mg tablet Other Relevant Orders VITAMIN B12 URINE [id number] RATIO (ACR) Genitourinary/Reproductive Stage 3b chronic kidney [...] Assessment & Plan Note - Sarika Zamudio, INJECTION OPERATOR - 08/05/2021 1342 EST Associated Problem(s): Hypercalcemia Josesito. * Assessment & Plan Note - Sarika Zamudio APRN - 08/05/2021 1342 EST Associated Problem(s): Stage 3b chronic kidney disease ([facility]) Josesito. * Assessment & Plan Note - Sarika Zamudio, JUSTIN - 08/05/2021 1320 EST Associated Problem(s): Diabetes mellitus, type 2 ([facility]) Controlled A1C 6.3 Congratulated on changes!! If [...] persistently or elevations >200. MALB today. Given [facility] H[facility] program info to see if qualifies. documented in this encounter Plan of Treatment Upcoming Encounters Date Type Department Care Team (Late st Contact Info) Description 03/08/2024 9:30 EDT Ancillary Procedure [facility] Cardiology - [address] [place] [address] 03/08/2024 10:15 EDT Ancillary Procedure [facility] Cardiology - [address] [place] [address] 04/05/2024 10:00 EDT Ancillary Procedure [facility] Cardiology Clinic [address] [place] [address] 04/05/2024 10:00 EDT Office Visit [facility] Cardiology Clinic [address] [place] [address] Carlos Ha NP [address] [facility] [address] [place] [address] documented as of this encounter Procedures Procedure Name Priority Date/Time Associated Diagnosis Comments URINE [id number]-FP-XAMGVPKDN E RATIO (ACR) Routine 08/05/2021 15:07 EST Type 2 diabetes mellitus with hyperglycemia, with long-term current use of insulin ([facility]) ([facility]) HEMOGLOBIN A1C Routine 08/05/2021 documented in this encounter Results * (ABNORMAL) URINE [id number]-PJ-[id number] RATIO (ACR) (08/05/2021 15:07 EST) Albumin, Urine 47.2 See Note mg/dL 2021 18:46 [facility] Comment: NOTE: Reference range not established Creatinine, Urine 102.8 See Note mg/dL 08/05/2021 18:46 [facility] Comment: NOTE: Reference range not established Lab Urine Albumin to Creatinine Ratio 459(H) <30 ??g/mg Creatinine 08/05/2021 18:46 [facility] Comment: Urine Albumin/Creatinine Ratio: Normal: <30 ug/mg Creatinine Moderately increased albuminuria: 30-300 ug/mg Creatinine Severley increased albuminuria: >300 ug/mg Creatinine Urine URINE SPECIMEN COLLECTION, CLEAN CATCH / Unknown Urine Collect / Unknown 08/05/2021 15:07 EST 08/05/2021 15:07 EST Sarika Zamudio NP CHEMISTRY & BLOOD GAS ORDERABLES [facility] [address] [place] [address] * HEMOGLOBIN A1C (08/05/2021) Hemoglobin A1C, External 6.8 1 Est Avg Glucose, External 1 Blood VENOUS BLOOD / Unknown 08/05/2021 Historical Provider MD CHEMISTRY & BLOOD GAS ORDERABLES 1 * (ABNORMAL) VITAMIN B12 (08/01/2021 10:02 EST) Vitamin B12 172(L) 211 - 911 pg/mL 08/05/2021 14:46 EST [facility] Blood VENOUS BLOOD / Unknown Venipuncture / Unknown 08/01/2021 10:02 EST 08/01/2021 11:04 EST Narrative [facility] - 08/05/2021 14:46 EST The results of this assay can be falsely elevated due to the consumption of Biotin. Sarika Zamudio NP CHEMISTRY & BLOOD GAS ORDERABLES [facility] [address] [place] [address] documented in this encounter Visit Diagnoses Diagnosis Type 2 diabetes mellitus with hyperglycemia, with long-term current use of insulin ([facility])- Primary Stage 3b chronic kidney disease ([facility]) Hypercalcemia Essential hypertension Unspecified essential hypertension Mixed hyperlipidemia meterman current use of insulin ([facility]) Encounter for long-term (current) use of insulin [...] 11/13/2022 added in this encounter Care Teams Senior Contracts Administrator Relationship Specialty Start Date End Date Bryant Crain MD [address] [place] [address] PCP - General 05/04/15 05/17/23 documented as of this encounter
--- OUTSIDE RECORDS SUMMARY | 2024-01-12 11:23 | XMS_ITS | Encounter Summary ---
Author Organization [facility] Address [address] [place] [address] Care Team Providers Care Key Bed Installer Name Role Phone Bryant rCain MD Primary Care Provider [phone] Encounter Details Date Type Department Care Team (Late st Contact Info) Description 11/04/2020 Results Only [facility] Endocrinology [address] [place] [address] Sarika Zamudio, ARCHITECT INTERN 130 [facility] [address] [place] [phone] Social History Tobacco Use Types [...] Info) Description 03/08/2024 9:30 EDT Ancillary Procedure [facility] Cardiology - [address] [place], [place] [id number] 03/08/2024 10:15 EDT Ancillary Procedure [facility] Cardiology - [address] [place], [place] [phone] 04/05/2024 10:00 EDT Ancillary Procedure [facility]iology Clinic [address] [place] [phone] 04/05/2024 10:00 EDT Office Visit [facility] [address] [place] [address] Carlos Ha NP [address] [place] [address]-[address] [place] [phone] documented as of this encounter Procedures Procedure Name Priority Date/Time Associated Diagnosis Comments URINE COLLECTION TIME - [facility] Routine 11/04/2020 8:15 EDT URINE COLLECTION TIME - [facility] Routine 11/04/2020 8:15 EDT URINE INFORMATION Routine 11/04/2020 8:1 5 EDT URINE INFORMATION Routine 11/04/2020 8:1 5 EDT CALCIUM, URINE 24HR Routine 11/04/2020 8 :15 EDT CREATININE, URINE 24HR Routine 11/04/2020 8:15 EDT documented in this encounter Results * URINE INFORMATION (11/04/2020 8:15 EDT) Urine Volume 750 mL 11/04/2020 10:51 EDT [facility] 11/04/2020 8:15 EDT 11/04/2020 10:23 EDT Sarika Zamudio ARCHITECT INTERN URINALYSIS ORDERA BLES Performing Organization Address [facility]/ZIP Co de Phone Number [facility] [address] [place] [address] * URINE COLLECTION TIME - CV (11/04/2020 8:15 EDT) URINE COLLECTION TIME - CV 24 HOURS 11/04/2020 10:51 EDT [facility] 11/04/2020 8:15 EDT 11/04/2020 10:23 EDT Sarika Zamudio ARCHITECT INTERN HEMATOLOGY & PF4 ORDERABLES Performing Organization Address [facility] Co de Phone Number [facility] [address] [place] [address] * CALCIUM, URINE 24HR (11/04/2020 8:15 EDT) Pathologist [facility] Calcium, Urine 24 hr 230 42 - 353 mg/24hrs 11/04/2020 11:17 EDT [facility] 11/04/2020 8:15 EDT 11/04/2020 10:23 EDT Sarika Zamudio ARCHITECT INTERN URINALYSIS ORDERA BLES Performing Organization Address [facility]/ZIP Co de Phone Number [facility] [address] [place] [address] * URINE INFORMATION (11/04/2020 8:15 EDT) URINE TOTAL VOLUME - [facility] 750 mL 11/04/2020 10:52 EDT [facility] 11/04/2020 8:15 EDT 11/04/2020 10:23 EDT Sarika Zamudio ARCHITECT INTERN URINALYSIS ORDERA BLES Performing Organization Address [facility]/ZIP Co de Phone Number [facility] [address] [place] [address] * URINE COLLECTION TIME - CV (11/04/2020 8:15 EDT) URINE COLLECTION TIME - [facility] 24 HOURS 11/04/2020 10:52 EDT [facility] 11/04/2020 8:15 EDT 11/04/2020 10:23 EDT Sarika Zamudio NP HEMATOLOGY & PF4 ORDERABLES Performing Organization Address City/[facility] Co de Phone Number [facility] [address] [place] [address] * CREATININE, URINE 24HR (11/04/2020 8:15 EDT) Creatinine, Urine 24 hr 0.94 0.6 - 2.49 g/24hr 11/04/2020 11:17 EDT [facility] 11/04/2020 8:15 EDT 11/04/2020 10:23 EDT Sarika Zamudio NP URINALYSIS ORDERA BLES Performing Organization Address City/[facility] Co de Phone Number [facility] [address] [place] [address] documented in this encounter Visit Diagnoses Not on filedocumented in this encounter Care Teams Key Bed Installer Relationship Specialty Start Date End Date Bryant Crain MD [address] [place] [address] PCP - General 05/04/15 05/17/23 documented as of this encounter
--- OUTSIDE RECORDS SUMMARY | 2024-01-12 11:23 | XMS_ITS | Encounter Summary ---
Author Organization [facility] Address [address] [place] [address] Care Team Providers Care Light Cleaner Name Role Phone Bryant Crain MD Primary Care Provider [phone] Encounter Details Date Type Department Care Team (Late st Contact Info) Description 06/11/2020 Orders Only [facility] Cardiology Clinic [address] [place], [place] [phone] Carlos Ha NP 130 [facility] [address] [place] [address] Cryptogenic stroke (HCC-CMS) (Primary Dx) [...] [facility] - [address] [place] [address] 03/08/2024 10:15 EDT Ancillary Procedure [facility] Cardiology - [facility] [address] [place] [address] 04/05/2024 10:00 EDT Ancillary Procedure [facility] Cardiology Clinic [address] [place] [address] 04/05/2024 10:00 EDT Office Visit [facility] Cardiology Clinic [address] [place] [phone] Carlos Ha, RIGHT OF WAY MANAGER 130 [facility] [address] [place] [phone] documented as of this encounter Procedures Procedure [...] for devicedetails. Carlos Ha APRN Carlos Ha RIGHT OF WAY MANAGER CV IMPLANTABLE CARDI AC DEVICE * CARDIAC [...] 020 documented in this encounter Care Teams Light Cleaner Relationship Specialty Start Date End Date Bryant Crani MD [address] [place] [address] PCP - General 05/04/15 05/17/23 documented as of this encounter
--- OUTSIDE RECORDS SUMMARY | 2024-01-12 11:23 | XMS_ITS | Encounter Summary ---
Author Organization [facility] Address [address] [place] [address] Care Team Providers Care Mechanism Assembler Name Role Phone Bryant Crain MD Primary Care Provider [phone] Reason for Visit * (Routine) - Order Cancelled Specialty Diagnoses / Procedures Referred By Charo daniel Referred To Contact Diagnoses Status post placement of implantable loop recorder Procedures CARDIAC IMPLANT CHECK - IN CLINIC Ana Epperson, [employer] LEADER [address] [facility] [address] [address] Referral ID Status Reason Start Date Expiration Date V isits Requested Visits Authorized [id number] Order Cancelled 06/05/2019 1 1 Encounter Details Date Type Department Care Team (Latest Contact Info) Description 02/23/2020 12:[address] [facility] [address] [place] [address] Status post placement of implantable loop recorder [...] Ancillary Procedure [facility] Cardiology - [facility] [address] [place] [address] 03/08/2024 10:15 EDT Ancillary Procedure [facility] Cardiology - [facility] [address] [place] [address] 04/05/2024 10:00 EDT Ancillary Procedure [facility] Cardiology Clinic [address] [place] [id number] 04/05/2024 10:00 EDT Office Visit [facility] Clinic [address] [place] [phone] Carlos Macario, [employer] LEADER [address] [place] [address] [place] [phone] documented as of this encounter Procedures Procedure [...] situ documented in this encounter Care Teams Mechanism Assembler Relationship Specialty Start Date End Date Bryant Crain MD [address] [place] [address] PCP - General 05/04/15 05/17/23 documented as of this encounter
--- OUTSIDE RECORDS SUMMARY | 2024-01-12 11:23 | XMS_ITS | Encounter Summary ---
Author Organization [facility] Address [address] [place] [address] Care Team Providers Care Watch Commander Name Role Phone Bryant Crain MD Primary Care Provider [phone] Reason for Visit * Reason Onset Date Comments Medications Refill 10/29/2020 Encounter Details Date Type Department Care Team (Late st Contact Info) Description 10/29/2020 Refill [facility] [address] [place] [address] Heidi Moore RN Medications Refill Social History [...] MELANIE 2 SENSOR) kit 1 Units [facility] (non-drug; combo route) route every 14 days. 6 Kit 3 10/29/2020 12/29/2021 documented in this encounter Miscellaneous Notes * Telephone Encounter - eHidi Moore RN - 10/29/2020 1017 EDT Pt was rx'd melanie 2 reader and melanie sensors-- needs melanie 2 sensors sen t to [facility] / done documented in this encounter Plan of Treatment Upcoming Encounters Date Type Department Care Team (Late st Contact Info) Description 03/08/2024 9:30 EDT Ancillary Procedure [facility] Cardiology [place] [address] [place], [place] [phone] 03/08/2024 10:15 EDT Ancillary Procedure [facility] Cardiology [place] [address] [address] [place], [place] [phone] 04/05/2024 10:[address] [facility] [address] [place] [phone] 04/05/2024 10:[address] [facility] [address] [place] [phone] Carlos Ha NP 130 [facility]-A [address] [place] [phone] documented as of this encounter Visit Diagnoses Not on filedocumented in this encounter Discontinued Medications Medication Sig Discontinue Reason Start Date End Da te flash glucose sensor (FREESTYLE MELANIE 14 DAY SENSOR) kitIndications:Type 2 diabetes mellitus with hyperglycemia, with long-term current use of insulin ([facility]) 1 application by misc (non-drug; combo route) route continuous. 10/02/2020 10/29/2020 documented as of this encounter Care Teams Watch Commander Relationship Specialty Start Date End Date Bryant Crain MD [address] [place], [place] [id number] PCP - General 05/04/15 05/17/23 documented as of this encounter
--- OUTSIDE RECORDS SUMMARY | 2024-01-12 11:23 | XMS_ITS | Encounter Summary ---
Author Organization [facility] Address [address] [place] [address] Care Team Providers Care Copper Tapper Name Role Phone Bryant Crain MD Primary Care Provider [phone] Reason for Visit * Reason Onset Date Comments Other 12/05/2019 Encounter Details Date Type Department Care Team (Late st Contact Info) Description 12/05/[address] [facility] Cardiology Clinic [address] [place] [address] Ana Epperson, FIELD ACCOUNT DIRECTOR Other Social History Tobacco Use Types Packs/Day [...] Telephone Encounter - Nestor Espinosa - 12/05/2019 1933 EDT Note from 11/23/19 [facility] addendum faxed to Dr. Peterson at [place] * Telephone Encounter - Ana Epperson APRN - 12/05/2019 1524 EDT Can you send my addended note to the surgeon in [place] now that I have added the result of her stress test so she can go forward with her surgery? Angela Perez documented in this encounter Plan of Treatment Upcoming Encounters Date Type Department Care Team (Late st Contact Info) Description 03/08/2024 9:30 EDT Ancillary Procedure [facility] Cardiology - [address] [place] [address] 03/08/2024 10:15 EDT Ancillary Procedure [facility] Cardiology [address] [place] [address] 04/05/2024 10:00 EDT Ancillary Procedure [facility] Cardiology Clinic [address] [place] [address] 04/05/2024 10:00 EDT Office Visit [facility] Cardiology [address] [address] Carlos Ha NP 130 [facility] [address] [place] [phone] documented as of this encounter Visit Diagnoses Not on filedocumented in this encounter Care Teams Copper Tapper Relationship Specialty Start Date End Date Bryant Crain MD [address] [place] [address] PCP - General 05/04/15 05/17/23 documented as of this encounter
--- OUTSIDE RECORDS SUMMARY | 2024-01-12 11:23 | XMS_ITS | Encounter Summary ---
Author Organization [facility] Address [address] [place] [address] Care Team Providers Care Public Health Assistant Name Role Phone Bryant Crain MD Primary Care Provider [phone] Carlos Ha HUMAN RESOURCES OFFICE MANAGER Unavailable [phone] Elba Jett MD Primary Care Provider [phone] Encounter Details Date Type Department Care Team (Late st Contact Info) Description 12/14/2019 Lab Requisition [facility] Pathology & Laboratory Medicine - [address] [address] Rivas Peterson, [address] [place] [address] Squamous cell carcinoma of skin, unspecified; Neoplasm [...] Description 03/08/2024 9:30 EDT Ancillary Procedure [facility] Cardiology - [address] [address] [place] [address] 03/08/2024 10:15 EDT Ancillary Procedure [facility] Cardiology - [place] [address] [place] [address] 04/05/2024 10:00 EDT Ancillary Procedure [facility] Cardiology Clinic [address] [place] [address] 04/05/2024 10:00 EDT Office Visit [facility] Cardiology Clinic [address] [place] [address] Carlos Ha NP [address] [place] [address]-[address] [place] [address] documented as of this encounter [...] uninvolved by invasive carcinoma. 12/19/2019 12:49 EDT [facility] at 1249 Attestation By the signature below, the attending physician certifies that they have 1) personally conducted a gross and/or microscopic examination of the described specimen(s), and/or personally interpreted the results of laboratory testing of the described specimen(s), and 2) personally rendered or confirmed the above diagnosis. 12/19/2019 12:49 [facility] at 1249 Diagnosis Comment The interpretation of the intraoperative consultation is compatible with the final diagnosis. This sample was processed at the [facility]. The slides were reviewed and the final diagnosis was made at [facility], [address] [place] [address] (CLIA License Number [id number]). 12/19/2019 12:49 [facility] Intraoperative Consultation RIGHT NASAL ALA, FROZEN SECTION: - Scar, no evidence of residual carcinoma in sections examined, margins uninvolved by carcinoma. - FSA1: Scar, no evidence of residual carcinoma in sections examined. Margins uninvolved by carcinoma. - Diagnosis discussed with Dr. Mina Peterson by Dr. Tammi Gallardo. Dr. Tammi Gallardo 12/14/2019 12/19/2019 12:49 [facility] Clinical History SCCA R nasal ala 12:49 [facility] Gross Description A. Received [...] face Mayra Glo 12/15/2019 13:56 12/19/2019 12:49 [facility] Scanned Images 12/19/2019 12:49 [facility] Tissue TISSUE SPECIMEN FROM SKIN / Unknown 12/14/2019 11:22 EDT 12/14/2019 21:38 EDT Rivas Peterson DO PATHOLOGY ORDER PAVEL [facility] [address] [place] [address] documented in this encounter Visit Diagnoses Diagnosis Squamous cell carcinoma of skin, unspecified Neoplasm of unspecified behavior of bone, soft tissue, and skin Actinic keratosis documented in this encounter Care Teams Public Health Assistant Relationship Specialty Start Date End Date Bryant Crain MD [address] [place] [address] PCP - General 05/04/15 05/17/23 Elba Jett MD [address] [place] [phone] PCP - General Family Medicine - Primary Care 05/18/23 Carlos Ha NP [address] [place] [address] [phone] Consulting Clinician Cardiovascular Disease 09/14/21 documented as of this encounter
--- OUTSIDE RECORDS SUMMARY | 2024-01-12 11:23 | XMS_ITS | Encounter Summary ---
Author Organization [facility] Address [address] [place] [address] Care Team Providers Care Tapper Supervisor Name Role Phone Bryant Crain MD Primary Care Provider [phone] Reason for Visit * Reason Comments Follow-up Encounter Details Date Type Department Care Team (Latest Contact Info) Description 09/20/2020 12:00 EDT Telemedicine [facility] [place] Clinic [address] [place] [address] Carlos Macario NP 130 [facility] [address] [place] [address] Paroxysmal atrial fibrillation (HCC-CMS) (Primary [...] this encounter Progress Notes * Carlos Macario, REAL ESTATE SALES MANAGER - 09/20/2020 1200 EDT [facility] Telephone Visit The concept of ???Telemedicine?? has [...] History: Diagnosis Date ??? Cerebrovascular accident (CVA) ([facility]) 06/01/2019 ??? Diabetes mellitus, type 2 ([facility]) 01/26/2011 On metformin On metformin ??? Essential hypertension 06/01/2019 ??? Mixed hyperlipidemia 06/05/2019 ??? Nonrheumatic aortic valve stenosis 06/01/2019 ??? Paroxysmal atrial fibrillation ([facility]) 06/01/2019 SH/FH: reviewed and updated MEDICATIONS: Medications [...] ??? Propoxyphene N-Acetaminophen Other reaction(s): Hallucinations ??? Nzyqcsz-Gnb-Cah Reductase Inhibitors ??? Trulicity [Dulaglutide] Gi Side effect ROS: The rest of the pertinent 10 point review of systems is negative other than mentioned in the HPI Objective: Examination: Home Vitals: No vitals available for this appointment. Pertinent exam findings patient can observe: Alert and orientated. NAD. Speaking in full sentences.Mood stable. [facility] Cardiology ILR Visit Choir Director: [employer] Device Type: Implantable loop recorder Service: [...] she may have had it done at [facility] look in their records. Carlos Macario APRN [...] for 01/21/21; 1045 arrival with pt-faxed to [facility] Med Records to get ECHO and Lipids [...] - 09/20/2020 1545 EDTAssociated Problem(s): Dilated cardiomyopathy ([facility]) EF on MPI 45%. I had ordered a repeat echo and she thinks she had it done at [facility]. Our records showher last echo was in 2017. I am going to have her repeat the study. * Addendum Note - Carlos Macario APRN - 09/20/2020 1200 EDTAddended by: CARLOS MACARIO on: 10/06/2020 10:02 Modules accepted: Orders documented in this encounter Plan of Treatment Upcoming Encounters Date Type Department Care Team (Late st Contact Info) Description 03/08/2024 9:30 EDT Ancillary Procedure [facility] Cardiology - [facility] [address] 03/08/2024 10:15 EDT Ancillary Procedure [facility] Cardiology - [facility] [place] [address] 04/05/2024 10:00 EDT Ancillary Procedure [facility] [place] [facility] Cardiology Clinic [address] [place], [place] [address] 04/05/2024 10:00 EDT Office Visit [facility] [place] [facility] Cardiology Clinic [address] [facility] [place] 50[address] Carlos Macario NP 130 [facility] MOB-A [address] [place] [address] documented as of this encounter Visit Diagnoses Diagnosis Paroxysmal atrial fibrillation (HCC-CMS)- Primary Atrial fibrillation Mixed hyperlipidemia Dilated cardiomyopathy (HCC-CMS) Other primary cardiomyopathies Status post placement of implantable loop recorder Other specified cardiac device in situ documented in this encounter Care Teams Tapper Supervisor Relationship Specialty Start Date End Date Bryant Crain MD [address] [place] [address] PCP - General 05/04/15 05/17/23 documented as of this encounter
--- OUTSIDE RECORDS SUMMARY | 2024-01-12 11:23 | XMS_ITS | Encounter Summary ---
Author Organization [facility] Address [address] [place] [address] Care Team Providers Care Time Cycle Operator Name Role Phone Bryant Crain MD Primary Care Provider [phone] Reason for Visit * Reason Onset Date Comments Labs Only 11/08/2020 Encounter Details Date Type Department Care Team (Late st Contact Info) Description 11/08/2020 Telephone [facility] Endocrinology [address] [place] [address] Sarika Zamudio, SUPERINTENDENT FISH HATCHERY 130 [facility]- [address] [place] [phone] Labs Only Social History Tobacco Use [...] Monitor calcium yearly. Denies arthritis. Notes having [facility] of hypercalcemia. She did get Lo 2 CGM. BG 90-260 She did increase her ozempic 1 mg and tolerating this fine. Will review CGM data on next visit. documented in this encounter Plan of Treatment Upcoming Encounters Date Type Department Care Team (Late st Contact Info) Description 03/08/2024 9:30 EDT Ancillary Procedure [facility] Cardiology - [address] [place] [address] 03/08/2024 10:15 EDT Ancillary Procedure [facility] Cardiology - [address] [place] [address] 04/05/2024 10:00 EDT Ancillary Procedure [facility] Cardiology Clinic [address] [place] [address]40[address] 04/05/2024 10:00 EDT Office Visit [facility] Cardiology Clinic [address] [place] [address] Carlos Ha, RAHEEM 130 [facility] [address] [place] [phone] documented as of this encounter Visit Diagnoses Not on filedocumented in this encounter Care Teams Time Cycle Operator Relationship Specialty Start Date End Date Bryant Crain MD [address] [place], [place] [phone] PCP - General 05/04/15 05/17/23 documented as of this encounter
--- OUTSIDE RECORDS SUMMARY | 2024-01-12 11:23 | XMS_ITS | Encounter Summary ---
Author Organization [facility] Address [address] [place] [address] Care Team Providers Care Lead Etl Developer Name Role Phone Bryant Crain MD Primary Care Provider [phone] Reason for Visit * Reason Onset Date Comments Medication Problem 12/11/2019 Encounter Details Date Type Department Care Team (Late st Contact Info) Description 12/11/2019 Telephone [facility] Cardiology Clinic [address] [place] [address] Rea Ness, RN [address] [place] [address]-[address] [place] [address] Medication Problem Social History Tobacco [...] hold her aspirin. Discussed with Ana Epperson TELEPHONE COIN BOX COLLECTOR. Yes, patient should also hold aspirin. Spoke with patient and notified yes, OK to hold aspirin. documented in this encounter Plan of Treatment Upcoming Encounters Date Type Department Care Team (Late st Contact Info) Description 03/08/2024 9:30 EDT Ancillary Procedure [facility] Cardiology [address] [place] [address] 03/08/2024 10:15 EDT Ancillary Procedure [facility] Cardiology [address] [place] [address] 04/05/2024 10:00 EDT Ancillary Procedure [facility] Cardiology Clinic [address] [place] [address] 04/05/2024 10:00 EDT Office Visit [facility] Cardiology Clinic [address] [place] [phone] Carlos Ha NP [address] [place] [address]-[address] [place] [phone] documented as of this encounter Visit Diagnoses Not on filedocumented in this encounter Care Teams Lead Etl Developer Relationship Specialty Start Date End Date Bryant Crain MD [address] [place] [address] PCP - General 05/04/15 05/17/23 documented as of this encounter
--- OUTSIDE RECORDS SUMMARY | 2024-01-12 11:23 | XMS_ITS | Encounter Summary ---
Author Organization [facility] Address [address] [place] [address] Care Team Providers Care Comfort Advisor Name Role Phone Bryant Crain MD Primary Care Provider [phone] Reason for Visit * Reason Onset Date Comments Other 11/28/2019 Encounter Details Date Type Department Care Team (Late st Contact Info) Description 11/28/2019 Telephone [facility] [address] [place] [address] Ana Epperson, CORSET FITTER Other Social History Tobacco Use Types Packs/Day [...] about everything. Pt can be reached at [phone] documented in this encounter Plan of Treatment Upcoming Encounters Date Type Department Care Team (Late st Contact Info) Description 03/08/2024 9:30 EDT Ancillary Procedure [facility] Cardiology - [address] [place] [address] 03/08/2024 10:15 EDT Ancillary Procedure [facility] Cardiology - [address] [place] [address] 04/05/2024 10:00 EDT Ancillary Procedure [facility] Cardiology Clinic [address] [place] [phone] 04/05/2024 10:00 EDT Office Visit [facility] Cardiology Clinic [address] [place] [address] [phone] Carlos Ha NP [address] [place] [address]-[address] [place] [phone] documented as of this encounter Visit Diagnoses Not on filedocumented in this encounter Care Teams Comfort Advisor Relationship Specialty Start Date End Date Bryant Crain MD [address] [place] [address] PCP - General 05/04/15 05/17/23 documented as of this encounter
--- OUTSIDE RECORDS SUMMARY | 2024-01-12 11:23 | XMS_ITS | Encounter Summary ---
Author Organization [facility] Address [address] [place] [address] Care Team Providers Care Linux Unix Administrator Name Role Phone Bryant Crain MD Primary Care Provider [phone] Reason for Visit * Reason Onset Date Comments Other 10/18/2020 unknown Encounter Details Date Type Department Care Team (Late st Contact Info) Description 10/18/2020 Telephone [facility] [address] [place] [address] Meme Valenzuela, RN [address] [place] [phone] Other (unknown) Social History Tobacco Use Types [...] Description 03/08/2024 9:30 EDT Ancillary Procedure [facility] Cardiology - [place] [address] [place] [address] 03/08/2024 10:15 EDT Ancillary Procedure [facility] Cardiology [address] [place] [address] 04/05/2024 10:00 EDT Ancillary Procedure [facility] Cardiology Clinic [address] [place] [address] 04/05/2024 10:00 EDT Office Visit [facility] Cardiology Clinic [address] [place] [address] Carlos Ha NP [address] [facility] MOB-[address] [place] [address] documented as of this encounter Visit Diagnoses Not on filedocumented in this encounter Care Teams Linux Unix Administrator Relationship Specialty Start Date End Date Bryant Crain MD [address] [place] [address] PCP - General 05/04/15 05/17/23 documented as of this encounter
--- OUTSIDE RECORDS SUMMARY | 2024-01-12 11:23 | XMS_ITS | Encounter Summary ---
Author Organization [facility] Address [address] [place] [address] Care Team Providers Care Rhic Systems Safety Engineer Name Role Phone Bryant Crain MD Primary Care Provider [phone] Encounter Details Date Type Department Care Team (Late st Contact Info) Description 07/10/2020 Orders Only [facility] Cardiology Clinic [address] [place], [place] [phone] Carlos Ha, RAHEEM 130 [facility] MOB-A [address] [place] [address] Cryptogenic stroke (HCC-CMS) (Primary Dx) [...] Info) Description 03/08/2024 9:30 EDT Ancillary Procedure [facility] Cardiology - [facility] [address] [place] [address] 03/08/2024 10:15 EDT Ancillary Procedure [facility] Cardiology - [facility] [address] [place] [address] 04/05/2024 10:00 EDT Ancillary Procedure [facility] Cardiology Clinic [address] [place] [phone] 04/05/2024 10:00 EDT Office Visit [facility] Cardiology Clinic [address] [place] [address] Carlos Ha NP [address] [place] [address] [address]OB[address] [place] [address] documented as of this encounter Procedures Procedure Name Priority Date/Time Associated Diagnosis Comments CARDIAC IMPLANT CHECK - REMOTE MONITOR Routine 07/11/2020 12:43 EST Cryptogenic stroke ([facility]) documented in this encounter Results [...] infarction documented in this encounter Care Teams Rhic Systems Safety Engineer Relationship Specialty Start Date End Date Bryant Crain MD [address] [place] [address] PCP - General 05/04/15 05/17/23 documented as of this encounter
--- OUTSIDE RECORDS SUMMARY | 2024-01-12 11:23 | XMS_ITS | Encounter Summary ---
Author Organization [facility] Address [address] [place] [address] Care Team Providers Care Director Metabolism Name Role Phone Bryant Crain MD Primary Care Provider [phone] Encounter Details Date Type Department Care Team (Late st Contact Info) Description 08/15/[address] [facility] Cardiology Clinic [address] [place] [address] Carlos Ha, RAHEEM 130 [facility] MOB-A [address] [place] [address] Cryptogenic stroke (HCC-CMS) (Primary Dx) [...] Info) Description 03/08/2024 9:30 EDT Ancillary Procedure [facility] Cardiology - [facility] [address] [place] [address] 03/08/2024 10:15 EDT Ancillary Procedure [facility] Cardiology - [facility] [address] [place] [address] 04/05/2024 10:[address] [facility] Cardiology Clinic [address] [place] [phone] 04/05/2024 10:[address] [facility] Cardiology Clinic [address] [place] [phone] Carlos Ha NP 130 [facility] MOB-[address] [place] [phone] documented as of this encounter Visit Diagnoses Diagnosis Cryptogenic stroke ([facility])- Primary Unspecified cerebral artery occlusion with cerebral infarction documented in this encounter Care Teams Director Metabolism Relationship Specialty Start Date End Date Bryant Crain MD [address] [place], [place] [phone] PCP - General 05/04/15 05/17/23 documented as of this encounter
--- OUTSIDE RECORDS SUMMARY | 2024-01-12 11:23 | XMS_ITS | Encounter Summary ---
Author Organization [facility] Address [address] [place] [address] Care Team Providers Care Metal Fabricating Supervisor Name Role Phone Bryant Crain MD Primary Care Provider [phone] Reason for Visit * Reason Comments Follow-up Encounter Details Date Type Department Care Team (Latest Contact Info) Description 10/02/2020 9:[address] [facility] Endocrinology [address] [place] [address] Sarika Zamudio, EXPLORATION ENGINEER 130 [facility]- [address] [place] [phone] Type 2 diabetes mellitus with hyperglycemia, with long-term current use of insulin ([facility]) (Primary Dx); Osteopenia after menopause; Hypercalcemia; Primary hyperparathyroidism ([facility]) Social History Tobacco Use Types Packs/Day Years [...] hyperglycemia, with long-term current use of insulin ([facility]) by misc (non-drug; combo route) route daily. One touch verio meter or best covered by insurance. 1 Each 10/02/2020 semaglutide (OZEMPIC) 1 mg/dose (2 mg/1.5 mL) pen injectorIndications:Typ e 2 diabetes mellitus with hyperglycemia, with long-term current use of insulin ([facility]) Inject 0.75 mL into the skin once a week. 6 Pen 3 10/02/2020 03/06/2021 flash glucose sensor (FREESTYLE LO 14 DAY SENSOR) kitIndications:Type 2 diabetes mellitus with hyperglycemia, with long-term current use of insulin (HCC-CMS) 1 application by misc (non-drug; combo route) route continuous. 6 Kit 3 10/02/2020 10/29/2020 documented in this encounter Progress Notes * Sarika Zamudio, SIGNAL MECHANIC - 10/02/2020 0945 EDT Reason for Visit: DM f/up PCP: Dr. Crain OTHER PROVIDERS: Carlos Ha, RAHEEM cardiology Joanna Hart is a 70 y.o. female who presented to the clinic for a follow-up in [facility], with a history of DM for 14 [...] today. Has eye visit this week in [place], she will fax visit notes. Had visit [...] (within one year): overdue. Has provider in [place] that she prefers. Has not been ableto go d/t COVID. No symptoms at this time. Last dental exam: overdue. Will schedule. CVD,PVD,CAD: HTN, HLD,CVA Statin: repatha injections. Aspirin: yes ACEI/ARB: candesartan 32 mg Prior visit with machine welt butter: yes, JALEN Hyman. Foot care: podiatry Comorbidities: [...] to the clinic for a follow-up in [facility], with a history of DM for 14 yrs. Problem List Items Addressed This Visit Endocrine/Metabolic Diabetes mellitus, type 2 ([facility]) - Primary Controlled A1C 7.1 Congratulated on [...] MANUAL ENTRY POCT HEMOGLOBIN A1C Primary hyperparathyroidism ([facility]) Relevant Orders XR DEXA BONE DENSITY CALCIUM, [...] Get updated DEXA scan at same clinic [facility]. Ordered faxed. Request disk of images to [...] menopause Get updated DEXA scan at same [facility]. Ordered faxed. Request disk of images to [...] EDT Associated Problem(s): Diabetes mellitus, type 2 ([facility]) Controlled A1C 7.1 Congratulated on changes! Increase [...] Ancillary Procedure [facility] Cardiology - [facility] [place] [address] 03/08/2024 10:15 EDT Ancillary Procedure [facility] Cardiology [facility] [place] [address] 04/05/2024 10:[address] [facility] [address] [place] [id number] 04/05/2024 10:[address] [facility] [address] [place] [phone] Carlos Ha NP [address] [place], [place] [address]A [address] [place] [address] documented as of this encounter Procedures Procedure Name Priority Date/Time Associated Diagnosis Comments POCT HEMOGLOBIN A1C Routine 12/04/2020 Type 2 diabetes mellitus with hyperglycemia, with long-term current use of insulin ([facility]) documented in this encounter Results * (ABNORMAL) POCT HEMOGLOBIN A1C (12/04/2020) Hemoglobin A1c, POC 6.9(A) 5.7 % [facility] POINT OF CARE Blood CAPILLARY BLOOD / Unknown 12/04/2020 Sarika Zamudio NP POINT OF CARE FUNMILAYO T ORDERABLES [facility] POINT OF CARE documented in this encounter Visit Diagnoses Diagnosis Type 2 diabetes mellitus with hyperglycemia, with long-term current use of insulin ([facility])- Primary Osteopenia after menopause Hypercalcemia Primary hyperparathyroidism ([facility]) Primary hyperparathyroidism documented in this encounter Discontinued Medications Medication Sig Discontinue Reason Start Date End Da te blood-glucose meter (ONE TOUCH BASIC SYSTEM MISC) -to test blood sugar - -test 2 x daily 10/02/2020 semaglutide (OZEMPIC) subcutaneous penIndications:Type 2 diabetes mellitus with hyperglycemia, with long-term current use of insulin ([facility]) Inject 0.25 mg into the skin once a week. 08/07/2020 10/02/2020 dapagliflozin 5 mg tablet Take 5 mg by mouth. 10/25/2019 documented as of this encounter Historical Medications * This list may reflect changes made after this encounter. Medication Sig Dispensed Refills Start Date End Date fluorouraciL (EFUDEX) 5 % creamIndications:uses in winter 1 03/06/2021 added in this encounter Care Teams Metal Fabricating Supervisor Relationship Specialty Start Date End Date Bryant Crain MD [address] [place], [place] [phone] PCP - General 05/04/15 05/17/23 documented as of this encounter
--- OUTSIDE RECORDS SUMMARY | 2024-01-12 11:23 | XMS_ITS | Encounter Summary ---
Author Organization [facility] Address [address] [place] [address] Care Team Providers Care Quartz Cutter Name Role Phone Bryant Crain MD Primary Care Provider [phone] Encounter Details Date Type Department Care Team (Late st Contact Info) Description 06/11/2020 Orders Only [facility] Cardiology Clinic [address] [place], [place] [phone] Carlos Ha NP 130 [facility] MOB-A [address] [place] [address] Cryptogenic stroke (HCC-CMS) (Primary Dx) [...] Ancillary Procedure [facility] Cardiology - [facility] [address] [place] [address] 03/08/2024 10:15 EDT Ancillary Procedure [facility] Cardiology - [facility] [address] [place] [address] 04/05/2024 10:00 EDT Ancillary Procedure [facility] Card[facility] Clinic [address] [place] [address] 04/05/2024 10:00 EDT Office Visit [facility] Clinic [address] [place] [phone] Carlos Ha NP [address] [place] [address] [address]OB-A [address] [place] [phone] documented as of this encounter Visit Diagnoses Diagnosis Cryptogenic stroke ([facility])- Primary Unspecified cerebral artery occlusion with cerebral infarction documented in this encounter Care Teams Quartz Cutter Relationship Specialty Start Date End Date Bryant Crain MD [address] [place], [place] [phone] PCP - General 05/04/15 05/17/23 documented as of this encounter
--- OUTSIDE RECORDS SUMMARY | 2024-01-12 11:23 | XMS_ITS | Encounter Summary ---
Author Organization [facility] Address [address] [place] [address] Care Team Providers Care Equipment Operating Engineer Name Role Phone Bryant Crain MD Primary Care Provider [phone] Reason for Referral * Consult (Routine) - Closed Specialty Diagnoses / Procedures Referred By Charo daniel Referred To Contact Orthopedic Surgery Diagnoses Type 2 diabetes mellitus with hyperglycemia, with long-term current use of insulin ([facility]) Sarika Zamudio NP [address] [facility] [address] [place] [address] [facility] [address] [place] [address] Referral ID Status Reason Start Date Expiration Date V isits Requested Visits Authorized [id number] Closed Specialty Services Required 07/10/2020 1 1 Question Answer Reason for Request: TIIDM Reason for Visit * Reason Comments Diabetes Encounter Details Date Type Department Care Team (Late st Contact Info) Description 07/10/2020 11:15 EST Office Visit [facility] [address] [place] [address] Sarika Zamudio NP [address] [facility] [address] [place] [address] Type 2 diabetes mellitus with hyperglycemia, with long-term current use of insulin ([facility]) (Primary Dx); Essential hypertension; Mixed hyperlipidemia; [...] visits d/t this. Sees a urologist in [facility] for chronic concerns. [facility] DM: unsure if father had DM [...] (within one year): overdue. Has provider in [place] that she prefers. Has not been ableto go d/t COVID. No symptoms at this time. Last dental exam: overdue. Will schedule. CVD,PVD,CAD: HTN, HLD,CVA Statin: repatha injections. Aspirin: yes ACEI/ARB: candesartan 32 mg Prior visit with director hospice operations: yes, JALEN Hyman. Foot care: self, would [...] % Final No results found for: MICROALBUR, [id number] Lab Results Component Value Date NA 137 [...] unit/mL injectable pen Other Relevant Orders URINE JTALRDS-PM-RJIKOCZIEB RATIO (ACR) COMPREHENSIVE METABOLIC PANEL (CMP) LIPID PROFILE (INCLUDES CHOLESTEROL, TRIGLYCERIDES, HDL, LDL) POCT GLUCOSE, MANUAL ENTRY (Completed) POCT HEMOGLOBIN A1C (Completed) AMB CONS/FOLLOW UP PODIATRY Genitourinary/Reproductive Stage 3b chronic kidney disease GFR 44. Decrease metformin xr to 750 mg BID. Will continue to decrease and monitor kidney function. Cardiac/Vasculature Essential hypertension Normotensive today. Continue current regimen. Managed by cardiology, MASS SPEC Ha. Mixed hyperlipidemia Controlled on repatha. Patient [...] Associated Problem(s): Stage 3b chronic kidney disease ([facility]) GFR 44. Decrease metformin xr to 750 mg BID. Will continue to decrease and monitor kidney function. * Assessment & Plan Note - Sarika Zamudio APRN - 07/10/2020 1204 EST Associated Problem(s): Diabetes mellitus, type 2 ([facility]) Decrease metformin 750 mg BID Switch [...] Description 03/08/2024 9:30 EDT Ancillary Procedure [facility] Cardiology - [facility] [address] [place] [address] 03/08/2024 10:15 EDT Ancillary Procedure [facility] Cardiology - [place] [address] [place] [address] 04/05/2024 10:00 EDT Ancillary Procedure [facility] Cardiology Clinic [address] [place] [id number] 04/05/2024 10:00 EDT Office Visit [facility] Cardiology Clinic [address] [place] [phone] Carlos Ha NP [address] [place] [address]-[address] [place] [phone] Scheduled Referrals Name Type Priority Associated Diagnoses Orde r Schedule AMB CONS/FOLLOW UP PODIATRY Outpatient Referral Routine Type 2 diabetes mellitus with hyperglycemia, with long-term current use of insulin ([facility]) Ordered: 07/10/2020 documented as of this encounter Procedures Procedure Name Priority Date/Time Associated Diagnosis Comments MICROALBUMIN, URINE Routine 07/10/2020 1 1:01 EST Type 2 diabetes mellitus with hyperglycemia, with long-term current use of insulin ([facility]) POCT GLUCOSE, MANUAL ENTRY Routine 07/10/2020 Type 2 diabetes mellitus with hyperglycemia, with long-term current use of insulin ([facility]) POCT HEMOGLOBIN A1C Routine 07/10/2020 Type 2 diabetes mellitus with hyperglycemia, with long-term current use of insulin ([facility]) documented in this encounter Results * (ABNORMAL) MICROALBUMIN, URINE (07/10/2020 11:01 EST) Albumin, Urine 43.70(H) <1.7 mg/dL 07/10/2020 17:31 EST [facility] Lab Urine Albumin to Creatinine Ratio 375.4 ug/mg 07/10/2020 17:31 EST [facility] Comment: Normal: <30 ug/mg Creat Microalbuminuria: 30-300 ug/mg Creat Clinical albuminuria: >300 ug/mg Creat Creatinine, Urine 116.40 mg/dL 07/10/2020 16:44 EST [facility] 07/10/2020 11:0 1 EST 07/10/2020 15:30 EST Sarika Zamudio NP HEMATOLOGY & PF4 ORDERABLES Performing Organization Address City/[facility]/ZIP Co de Phone Number [facility] [address] [place] [address] * (ABNORMAL) POCT HEMOGLOBIN A1C (07/10/2020) Hemoglobin A1c, POC 8.4(A) 5.7 % [facility] POINT OF CARE Blood CAPILLARY BLOOD / Unknown 07/10/2020 Sarika Zamudio NP POINT OF CARE FUNMILAYO T ORDERABLES [facility] POINT OF CARE * (ABNORMAL) POCT GLUCOSE, MANUAL ENTRY (07/10/2020) Glucose, POC 185(A) 70 - 100 mg/dL [facility] POINT OF CARE HN LAB POC COMMENT MANUAL (GLUCOSE) [facility] POINT OF pharmacists ID UVN POIN T OF CARE Blood CAPILLARY BLOOD / Unknown 07/10/2020 Sarika Zamudio NP POINT OF CARE FUNMILAYO T ORDERABLES [facility] POINT OF CARE documented in this encounter Visit Diagnoses Diagnosis Type 2 diabetes mellitus with hyperglycemia, with long-term current use of insulin ([facility])- Primary Essential hypertension Unspecified essential hypertension Mixed hyperlipidemia Stage 3b chronic kidney disease ([facility]) documented in this encounter Discontinued Medications Medication [...] 05/31/2020 added in this encounter Care Teams Equipment Operating Engineer Relationship Specialty Start Date End Date Bryant Crain MD [address] [place] [address] PCP - General 05/04/15 05/17/23 documented as of this encounter
--- OUTSIDE RECORDS SUMMARY | 2024-01-12 11:23 | XMS_ITS | Encounter Summary ---
Author Organization [facility] Address [address] [place] [address] Care Team Providers Care Summons Server Name Role Phone Bryant Crain MD Primary Care Provider [phone] Encounter Details Date Type Department Care Team (Late st Contact Info) Description 11/14/2019 Orders Only [facility] Cardiology Clinic [address] [place] [address] Ana Epperson, RAHEEM Status post placement [...] 03/08/2024 9:30 EDT Ancillary Procedure [facility] Cardiology - [facility] [place] [address] 03/08/2024 10:15 EDT Ancillary Procedure [facility] Cardiology - [facility] [address] [place], [place] [phone] 04/05/2024 10:00 EDT Ancillary Procedure [facility] Cardiology Clinic [address] [place] [address] 04/05/2024 10:00 EDT Office Visit [facility] Cardiology Clinic [address] [place] [address] Carlos Ha, SUPERVISOR TRANSCRIBING OPERATORS 130 [facility] [address]OB-A [address] [place] [address] documented as of this encounter [...] documents for full details. Ana Epperson SUPERVISOR TRANSCRIBING OPERATORS CV IMPLANTABLE CARDI AC DEVICE documented in this encounter Visit Diagnoses Diagnosis Status post placement of implantable loop recorder- Primary Other specified cardiac device in situ documented in this encounter Care Teams Summons Server Relationship Specialty Start Date End Date Bryant Crain MD [address] [place], [place] [phone] PCP - General 05/04/15 05/17/23 documented as of this encounter
--- OUTSIDE RECORDS SUMMARY | 2024-01-12 11:23 | XMS_ITS | Encounter Summary ---
Author Organization [facility] Address [address] [place] [address] Care Team Providers Care Clinical Appeals Rn Name Role Phone Bryant Crain MD Primary Care Provider [phone] Encounter Details Date Type Department Care Team (Late st Contact Info) Description 11/21/[address] [facility] Cardiology Clinic [address] [place] [address] Sabrina Herring MA Cryptogenic stroke (HCC-CMS) (Primary [...] Cardiology - [address] [place] [address] 03/08/2024 10:15 EDT Ancillary Procedure [facility] Cardiology - [facility] [address] [place] [address] 04/05/2024 10:00 EDT Ancillary Procedure [facility] Cardiology Clinic [address] [place] [id number] 04/05/2024 10:00 EDT Office Visit [facility]iology Clinic [address] [place], [place] [address] Carlos Ha NP 130 [facility] [address]OB-A [address] [place] [address] documented as of this encounter Procedures Procedure Name Priority Date/Time Associated Diagnosis Comments CARDIAC IMPLANT CHECK - REMOTE MONITOR Routine 11/21/2020 8:57 EDT Cryptogenic stroke (HCC-CMS) documented in this encounter Results * CARDIAC IMPLANT CHECK - REMOTE - LOOP RECORDER (ILR) (11/21/2020 8:57 EDT) Anatomical Region Laterality Modality Device Narrative 12/02/2020 8:59 EDT Remote transmission of ILR reviewed. Battery has reached MERCHANDISE PRESENTATION ASSOCIATE. No arrhythmias, no symptoms. See scanned documents for full details. Procedure Note Orquidea Bowers APRN - 12/02/2020 Remote transmission of ILR reviewed. Battery has reached MERCHANDISE PRESENTATION ASSOCIATE. Noarrhythmias, no symptoms. See scanned documents for full details. Carlos Ha NP CV IMPLANTABLE CARDI AC DEVICE documented in this encounter Visit Diagnoses Diagnosis Cryptogenic stroke (HCC-CMS)- Primary Unspecified cerebral artery occlusion with cerebral infarction documented in this encounter Care Teams Clinical Appeals Rn Relationship Specialty Start Date End Date Bryant Crain MD [address] [place], [place] [phone] PCP - General 05/04/15 05/17/23 documented as of this encounter
--- OUTSIDE RECORDS SUMMARY | 2024-01-12 11:23 | XMS_ITS | Encounter Summary ---
Author Organization [facility] Address [address] [place] [address] Care Team Providers Care Gas Line Servicer Name Role Phone Bryant Crain MD Primary Care Provider [phone] Reason for Visit * Reason Onset Date Comments COVID-19 09/19/2020 Encounter Details Date Type Department Care Team (Late st Contact Info) Description 09/19/2020 Telephone [facility] [address] [place] [address] Carlos Ha, RAHEEM 130 [facility] [address] [phone] COVID-19 Social History Tobacco Use [...] to telemedicine appointment. Transferred to front desk manager to do so. * Telephone Encounter - [...] Procedure [facility] Cardiology - [place] [address] [place], [place] [id number] 03/08/2024 10:15 EDT Ancillary Procedure [facility] Cardiology - [place] [address] [place] [address] 04/05/2024 10:00 EDT Ancillary Procedure [facility] Cardiology Clinic [address] [place] [phone] 04/05/2024 10:00 EDT Office Visit [facility] Cardiology Clinic [address] [place] [phone] Carlos Ha NP [address] [place] [address]-[address] [place] [address] documented as of this encounter Visit Diagnoses Not on filedocumented in this encounter Care Teams Gas Line Servicer Relationship Specialty Start Date End Date Bryant Crain MD [address] [place] [address] PCP - General 05/04/15 05/17/23 documented as of this encounter
--- OUTSIDE RECORDS SUMMARY | 2024-01-12 11:23 | XMS_ITS | Encounter Summary ---
Author Organization [facility] Address [address] [place] [address] Care Team Providers Care Blender/Braze Applicator Name Role Phone Bryant Crain MD Primary Care Provider [phone] Reason for Referral * Cardiology (3 - 10 Business Days) - Specialty Report Received Specialty Diagnoses / Procedures Referred By Charo daniel Referred To Contact Nuclear Medicine Diagnoses Chest pain, unspecified type Procedures NM CARD SPECT NUCLEAR STRESS [facility] [address] [place], [place] [address] Referral ID Status Reason Start Date Expiration Date V isits Requested Visits Authorized [id number] Specialty Report Received 11/28/2019 01/11/2020 1 1 * Cardiology (Urgent) - Closed Specialty Diagnoses / Procedures Referred By Charo daniel Referred To Contact Nuclear Medicine Diagnoses [place] (ventricular tachycardia) ([facility]) Procedures NM CARD SPECT NUCLEAR STRESS [facility] [address] [place] [address] Referral ID Status Reason Start Date Expiration Date Visits Re quested Visits Authorized [id number] Closed 11/27/2019 01/11/2020 1 1 Reason for Visit * Reason Comments Follow-up Cardiac Clearance Encounter Details Date Type Department Care Team (Late st Contact Info) Description 11/23/2019 9:45 EDT Office Visit [facility] [address] [place] [address] Ana Epperson, TOWEL ROLLING MACHINE OPERATOR Paroxysmal atrial fibrillation (HCC-CMS) (Primary Dx); Status post placement of implantable loop recorder; Current use of custodial 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; Mixed hyperlipidemia; [place] (ventricular tachycardia) (HCC-CMS); [...] this encounter Progress Notes * Ana Epperson, COUNSELING PSYCHOLOGIST - 11/23/2019 0945 EDT CC: Follow-up (Cardiac Clearance ) HPI: Joanna Hart is a 69 y.o. year-old female I am seeing for a preop visit for surgical excision of anasal squamous cell cancer to be done by Dr Peterson either at [facility] or [facility]. Date is not scheduled yet. She is also here For f/u of her loop recorder/REVEAL device for Hx. cryptogenic stroke; Dr. Paul implanted 11/09/17; hx. CVA Fall of 2016; says she never had any symptoms. Hx: December 24, 2018 she awoke with PND, went to hospital in [place] for 3 days; says she was very [...] exercising daily in the pool while in [place] but hasn't for one month given pandemic. Hx: Called pt. 09/15/19 regarding her REVEAL transmission and arrythmia. She was in [place]. Explained she had an 8 sec. VT [...] for some time. She ultimately went to [facility] in [facility] and had w/u which was neg. For [...] accident (CVA) (HCC-CMS) ??? Current use of custodial 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 ??? intermediate manager current use of insulin (HCC-CMS) ??? Dyslipidemia ??? Essential hypertension ??? Nonrheumatic aortic valve stenosis ??? Paroxysmal atrial fibrillation (HCC-CMS) ??? Status post placement of implantable loop recorder ??? Diabetes mellitus, type 2 (HCC-CMS) ??? Rosacea ??? Dyspnea ??? Hypomagnesemia ??? Mixed hyperlipidemia ??? [place] (ventricular tachycardia) ([facility]) SH/FH: reviewed and updated MEDICATIONS: Current Outpatient [...] SKIN: warm, dry, without lesions,rashes Device: Brand: Garmentory REVEAL Implanted: 11/09/[address] Paul for cryptogenic stroke Mode: monitoring, presenting rhythm appears regular Generator: good Optivol: N/A Monitored Events: None Reprogramming: none Impression: Normal function with no arrhythmias since the 09/12 episode of VT DATA: imaging: EK01/23/19 at [facility]: SR with first degree AV block, left [...] based on ACC/AHA) 4. Current use of custodial 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 Patient is taking and tolerating apixaban [...] Info) Description 03/08/2024 9:30 EDT Ancillary Procedure [facility] Cardiology - [address] [place] [address] 03/08/2024 10:15 EDT Ancillary Procedure [facility] Cardiology [address] [place] [address] 04/05/2024 10:00 EDT Ancillary Procedure [facility] [address] [place] [address] 04/05/2024 10:00 EDT Office Visit [facility] [address] [place] [address] [phone] Carlos Ha NP [address] [place] [address]-[address] [place] [address] Scheduled Orders Name Type Priority Associated Diagnoses Orde r Schedule NM CARD SPECT NUCLEAR STRESS Cardiac Nuclear Medicine Routine [place] (ventricular tachycardia) ([facility]) Ordered: 11/23/2019 NM CARD SPECT NUCLEAR STRESS [...] encounter Results * TSH (11/23/2019 11:09 EDT) [facility] THYROID STIM HORMONE [facility] 2.80 0.46 - 4.68 uIU/ml 11/23/2019 12:29 EDT [facility] Comment: The results of this assay can be falsely lowered due to the consumption of Biotin. 11/23/2019 11:0 9 EDT 11/23/2019 11:09 EDT Narrative [facility] - 11/23/2019 12:29 EDT Does PT Have a Latex Allergy? UNKNOWN Ana Epperson TOWEL ROLLING MACHINE OPERATOR CHEMISTRY & BLOOD GA S ORDERABLES [facility] * MAGNESIUM (11/23/2019 11:09 EDT) [facility] Magnesium 2.00 1.7 - 2.8 mg/dL 11/23/2019 11:58 EDT [facility] 11/23/2019 11:0 9 EDT 11/23/2019 11:09 EDT Narrative [facility] - 11/23/2019 11:58 EDT Does PT Have a Latex Allergy? UNKNOWN Ana Epperson TOWEL ROLLING MACHINE OPERATOR CHEMISTRY & BLOOD GA S ORDERABLES [facility] * (ABNORMAL) BASIC METABOLIC PANEL (BMP) (11/23/2019 11:09 EDT) [facility] BUN [facility] 26 10 - 26 mg/dL 11/23/2019 11:58 EDT [facility] CALCIUM - [facility] 11.2(H) 8.5 - 10.5 mg/dL 11/23/2019 11:58 [facility] Chloride 108 96 - 110 mmol/L 11/23/2019 11:58 [facility] CO2 Total 20(L) 22 - 32 mEq/L 11/23/2019 11:58 [facility] CREATININE 0.92 0.52 - 1.04 mg/dL 11/23/2019 11:58 [facility] eGFR >60 11/23/2019 11:58 [facility] Comment: Chronic renal impairment is defined as GFR <60 Multiply result by 1.210 for patients. eGFR calculated using the IDMS-traceable MDRD Study Equation. ??(effective 04/23/2014) Anion Gap 9 0 - 18 11/23/2019 11:58 [facility] GLUCOSE - [facility] 199(H) 70 - 100 mg/dL 11/23/2019 11:58 [facility] Potassium 5.1(H) 3.5 - 5.0 mEq/L 11/23/2019 11:58 [facility] Sodium 137 136 - 145 mEq/L 11/23/2019 11:58 [facility] 11/23/2019 11:0 9 EDT 11/23/2019 11:09 EDT Narrative [facility] - 11/23/2019 11:58 EDT Does PT Have a Latex Allergy? UNKNOWN Ana Epperson NP CHEMISTRY & BLOOD GA S ORDERABLES [facility] documented in this encounter Visit Diagnoses Diagnosis Paroxysmal atrial fibrillation (HCC-CMS)- Primary Atrial fibrillation Status post placement of implantable loop recorder Other specified cardiac device in situ Current use of custodial 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 Long-term (current) use of anticoagulants Mixed hyperlipidemia [place] (ventricular tachycardia) ([facility]) Paroxysmal ventricular tachycardia Chest pain, unspecified type [...] 07/10/2020 added in this encounter Care Teams Blender/Braze Applicator Relationship Specialty Start Date End Date Bryant Crain MD [address] [place] [address] PCP - General 05/04/15 05/17/23 documented as of this encounter
--- OUTSIDE RECORDS SUMMARY | 2024-01-12 11:23 | XMS_ITS | Encounter Summary ---
Author Organization [facility] Address [address] [place] [address] Care Team Providers Care Senior Energy Trader Name Role Phone Bryant Crain MD Primary Care Provider [phone] Carlos Ha HUMAN RESOURCES SUPPORT SPECIALIST Unavailable [phone] Elba Jett MD Primary Care Provider [phone] Encounter Details Date Type Department Care Team (Late st Contact Info) Description 09/20/2020 Lab Requisition [facility] Pathology & Laboratory Medicine - [address] [address] Outr Resulting Lab, Provider Social [...] 03/08/2024 9:30 EDT Ancillary Procedure [facility] Cardiology - [address] [place], [place] [phone] 03/08/2024 10:15 EDT Ancillary Procedure [facility] [place] [address] 04/05/2024 10:00 EDT Ancillary Procedure [facility] [address] [place], [place] [address] 04/05/2024 10:00 EDT Office Visit [facility] [address] [place] [id number] Carlos Ha NP [address] [facility] [address] [place] [address] documented as of this encounter Procedures Procedure Name Priority Date/Time Associated Diagnosis Comments ZZCOVID-19 TEST [facility] PCR Today 09/20/2020 10:40 EDT COVID-19 TESTING Routine 09/20/2020 10:4 0 EDT documented in this encounter Results * COVID-19 TEST [facility] PCR (09/20/2020 10:40 EDT) Swab ENTIRE NASOPHARYNX / Unknown 09/20/2020 10:40 EDT 09/20/2020 20:44 EDT Provider Outr Resulting Lab MICROBIOLOGY - GENERAL ORDERABLES [facility] [address] [place] [address] * COVID-19 TESTING (09/20/2020 10:40 EDT) COVID-19 rt-PCR Result Negative Negative 09/21/2020 16:50 EDT [facility] Comment: This test has not [...] developed and its performance characteristics determined by [facility]. It has not been cleared or [...] testing. This test is based on the [facility] COVID-19 Emergency Use Authorization (EUA) assay, with minor modification as defined by the FDA Performed on the OneTwoSeeo 7 Flex RT-PCR System. Performing Lab [facility] 09/21/2020 16:50 EDT [facility] Swab 09/20/2020 10:4 0 EDT 09/20/2020 20:44 EDT Provider Outr Resulting Lab MICROBIOLOGY - GENERAL ORDERABLES [facility] [address] [place] [address] documented in this encounter Visit Diagnoses Not on filedocumented in this encounter Care Teams Senior Energy Trader Relationship Specialty Start Date End Date Bryant Crain MD [address] [place], [place] [id number] PCP - General 05/04/15 05/17/23 Elba Jett MD [address] [place] [phone] PCP - General Family Medicine - Primary Care 05/18/23 Carlos Ha NP [address] [place] [address] [phone] Consulting Clinician Cardiovascular Disease 09/14/21 documented as of this encounter
--- OUTSIDE RECORDS SUMMARY | 2024-01-12 11:23 | XMS_ITS | Encounter Summary ---
Author Organization [facility] Address [address] [place] [address] Care Team Providers Care Dry Cell Battery Assembler Name Role Phone Bryant Crain MD Primary Care Provider [phone] Reason for Visit * Reason Comments Diabetes Encounter Details Date Type Department Care Team (Latest Contact Info) Description 08/07/2020 13:45 EST Office Visit [facility] Endocrinology [address] [place] [address] Sarika Zamudio, CIRCULAR SAW OPERATOR [address] [facility] [place] [address] Type 2 diabetes mellitus with hyperglycemia, with long-term current use of insulin ([facility]) (Primary Dx); Stage 3b chronic kidney disease; [...] with long-term current use of insulin ([facility]) Inject 0.25 mg into the skin once a week. 2 Pen 3 08/07/2020 10/02/2020 documented in this encounter Progress Notes * Heidi Moore RN - 08/07/2020 1345 EST A1c done Needs eye exam Letter sent Lab Results Component Value Date UABCR 375.4 07/10/2020 HGBA1C 8.4 (A) 07/10/2020 Glucose-108 * Marcellusambrosejustin Sarika M, TELEPHONE ANSWERER - 08/07/2020 1345 EST Reason for Visit: DM f/up PCP: Dr. Crain OTHER PROVIDERS: Carlos Ha NP cardiology Joanna Hart is a 70 y.o. female who presented to the clinic for a follow-up in [facility], with a history of DM for [...] gain weight. She is not interested in [facility] DM: unsure if father had DM 4 of her siblings have [facility] Recent A1C: 8.4 (06/2020) Diabetic Medications: [...] (within one year): overdue. [place] in [place] that [place] prefers. Has not been ableto go d/t COVID. No symptoms at this time. Last dental exam: overdue. Will schedule. CVD,PVD,CAD: HTN, HLD,CVA Statin: repatha injections. Aspirin: yes ACEI/ARB: candesartan 32 mg Prior visit with engagement manager: yes, JALEN Hyman. Foot care: self, would [...] % Final No results found for: MICROALBUR, [id number] Lab Results Component Value Date NA 137 11/23/2019 K 5.1 (H) 11/23/2019 CL 108 11/23/2019 CO2 20 (L) 11/23/2019 BUN 26 11/23/2019 GLU 199 (H) 11/23/2019 CA 11.2 (H) 11/23/2019 Joanna Hart is a 70 y.o. female who presented to the clinic for a follow-up in [facility], with a history of DM for 14 yrs. Problem List Items Addressed This Visit Endocrine/Metabolic Diabetes mellitus, type 2 ([facility]) - Primary Uncontrolled A1C 8.4 Start [...] Has visit next week with podiatry in [facility] with Dr. Novoa. Relevant Medications dapagliflozin [...] Note - Sarika Zamudio APRN - 08/07/2020 1455 EST Associated Problem(s): Stage 3b chronic kidney disease ([facility]) Doing well on lower dose metformin. Continue candesartan 32 mg. Will recheck GFR at f/up. Discussed nephrology consult pending results. MALB 340. * Assessment & Plan Note - Sarika Zamudio APRN - 08/07/2020 1418 EST Associated Problem(s): Diabetes mellitus, type 2 ([facility]) Uncontrolled A1C 8.4 Start ozempic 0.25 mg [...] Has visit next week with podiatry in [facility] with Dr. Novoa. documented in this encounter Plan of Treatment Upcoming Encounters Date Type Department Care Team (Late st Contact Info) Description 03/08/2024 9:30 EDT Ancillary Procedure [facility] [place] [address] 03/08/2024 10:15 EDT Ancillary Procedure [facility] [place]iology [place] [address] 04/05/2024 10:00 EDT Ancillary Procedure [facility] [address] [place] [address] 04/05/2024 10:00 EDT Office Visit [facility] [address] [place] [address] Carlos Ha NP 130 [facility] [place] [address] documented as of this encounter Visit Diagnoses Diagnosis Type 2 diabetes mellitus with hyperglycemia, with long-term current use of insulin ([facility])- Primary Stage 3b chronic kidney disease ([facility]) Essential hypertension Unspecified essential hypertension Mixed hyperlipidemia [...] 10/02/2020 added in this encounter Care Teams Dry Cell Battery Assembler Relationship Specialty Start Date End Date Bryant Crain MD [address] [place], [place] [phone] PCP - General 05/04/15 05/17/23 documented as of this encounter
--- OUTSIDE RECORDS SUMMARY | 2024-01-12 11:23 | XMS_ITS | Encounter Summary ---
Author Organization [facility] Address [address] [place] [address] Care Team Providers Care Aircraft Communicator Name Role Phone Bryant Crain MD Primary Care Provider [phone] Encounter Details Date Type Department Care Team (Late st Contact Info) Description 11/08/2020 Orders Only [facility] Cardiology Clinic [address] [place] [address] Sabrina Herring MA Cryptogenic stroke (HCC-CMS) (Primary [...] Ancillary Procedure [facility] Cardiology - [address] [place] [address] 03/08/2024 10:15 EDT Ancillary Procedure [facility] Cardiology - [facility] [address] [place] [address] 04/05/2024 10:00 EDT Ancillary Procedure [facility]iology Clinic [address] [place] [address] 04/05/2024 10:00 EDT Office Visit [facility] Clinic [address] [place], [place] [address] Carlos Ha NP 130 [facility] [place] [address] documented as of this encounter [...] infarction documented in this encounter Care Teams Aircraft Communicator Relationship Specialty Start Date End Date Bryant Crain MD [address] [place], [place] [phone] PCP - General 05/04/15 05/17/23 documented as of this encounter
--- OUTSIDE RECORDS SUMMARY | 2024-01-12 11:23 | XMS_ITS | Encounter Summary ---
Author Organization [facility] Address [address] [place] [address] Care Team Providers Care Landscaping Supervisor Name Role Phone Bryant Crain MD Primary Care Provider Reason for Visit * Reason Onset Date Comments Other 11/23/2019 Encounter Details Date Type Department Care Team (Late st Contact Info) Description 11/23/2019 Telephone [facility] [address] [place] [address] Ana Epperson, BILINGUAL MANAGER Other Social History Tobacco Use Types Packs/Day [...] EDT Note faxed to Dr. Peterson at [place], . * Telephone Encounter - Ana Epperson APRN - 11/23/2019 1744 EDT Please send copy of note to Dr. Peterson at [facility]. documented in this encounter Plan of Treatment Upcoming Encounters Date Type Department Care Team (Late st Contact Info) Description 03/08/2024 9:30 EDT Ancillary Procedure [facility] Cardiology [address] [place] [address] 03/08/2024 10:15 EDT Ancillary Procedure [facility] Cardiology [address] [place] [address] 04/05/2024 10:00 EDT Ancillary Procedure [facility] Cardiology Clinic [address] [place] [phone] 04/05/2024 10:00 EDT Office Visit [facility]iology Clinic [address] [place] [address] Carlos Ha NP [address] [place] [address]- [address] [place] [phone] documented as of this encounter Visit Diagnoses Not on filedocumented in this encounter Care Teams Landscaping Supervisor Relationship Specialty Start Date End Date Bryant Crain MD [address] [place] [address] PCP - General 05/04/15 05/17/23 documented as of this encounter
--- OUTSIDE RECORDS SUMMARY | 2024-01-12 11:23 | XMS_ITS | Encounter Summary ---
Author Organization [facility] Address [address] [place] [address] Care Team Providers Care Copy Machine Operator Name Role Phone Bryant Crain MD Primary Care Provider [phone] Carlos Ha CHOPPED STRAND OPERATOR Unavailable [phone] Elba Jett MD Primary Care Provider [phone] Encounter Details Date Type Department Care Team (Late st Contact Info) Description 11/14/2019 Lab Requisition [facility] - [facility] [address] [place] [address] Rivas Peterson, [address] HERRERA [address] [place] [address] Neoplasm of unspecified behavior of bone, soft [...] Info) Description 03/08/2024 9:30 EDT Ancillary Procedure [facility] - [address] [place], [place] [id number] 03/08/2024 10:15 EDT Ancillary Procedure [facility] [place] [address] 04/05/2024 10:00 EDT Ancillary Procedure [facility] [address] [place], [place] [phone] 04/05/2024 10:00 EDT Office Visit [facility]iology Clinic [address] [place] [address] Carlos Ha NP 130 [facility]-A [address] [place] [address] documented as of this encounter [...] of the sections examined. All 11/15/2019 12:53 [facility] at 1253 Attestation By the signature below, the attending physician certifies that they have 1) personally conducted a gross and/or microscopic examination of the described specimen(s), and/or personally interpreted the results of laboratory testing of the described specimen(s), and 2) personally rendered or confirmed the above diagnosis. 11/15/2019 12:53 [facility] at 1253 Microscopic Description [...] and a lymphohistiocytic infiltrate. 11/15/2019 12:53 EDT [facility] Clinical History Nonhealing skin lesion left base of neck 11/15/2019 12:53 EDT [facility] Gross Description A. Received in formalin labelled with proper patient identification (initials S, D) and left base of neck is a 1.0 x 1.0 x 0.1 cm irregular shave of firm castillo-white skin. The margin is inked. The specimen is trisected and entirely submitted in A1. Mayra Glo 11/14/2019 16:21 11/15/2019 12:53 EDT [facility] Scanned Images 11/15/2019 12:53 T [facility] Tissue TISSUE SPECIMEN FROM SKIN / Unknown 11/10/2019 14:55 EDT 11/14/2019 15:44 EDT Rivas Peterson DO PATHOLOGY ORDER PAVEL [facility] [address] [place] [address] documented in this encounter Visit Diagnoses Diagnosis Neoplasm of unspecified behavior of bone, soft tissue, and skin documented in this encounter Care Teams Copy Machine Operator Relationship Specialty Start Date End Date Bryant Crain MD [address] [place] [address] PCP - General 05/04/15 05/17/23 Elba Jett MD [address] [place] [phone] PCP - General Family Medicine - Primary Care 05/18/23 Carlos Ha NP [address] [place] [address] [address] [place] [address] Consulting Clinician Cardiovascular Disease 09/14/21 documented as of this encounter
--- OUTSIDE RECORDS SUMMARY | 2024-01-12 11:23 | XMS_ITS | Encounter Summary ---
Author Organization [facility] Address [address] [place] [address] Care Team Providers Care Regional Business Manager Name Role Phone Bryant Crain MD Primary Care Provider Encounter Details Date Type Department Care Team (Late st Contact Info) Description 11/10/2019 Orders Only [facility] Card[facility] Clinic [address] [place] [address] Ana Epperson, RAHEEM Status post placement [...] Info) Description 03/08/2024 9:30 EDT Ancillary Procedure [facility] Cardiology - [facility] [place] [address] 03/08/2024 10:15 EDT Ancillary Procedure [facility] Cardiology - [facility] [address] [place], [place] [id number] 04/05/2024 10:00 EDT Ancillary Procedure [facility] [address] [place] [address] 04/05/2024 10:00 EDT Office Visit [facility] [address] [place] [address] Carlos Ha NP 130 [facility] MOB-A [address] [place] [address] documented as of this encounter [...] situ documented in this encounter Care Teams Regional Business Manager Relationship Specialty Start Date End Date Bryant Crain MD [address] [place], [place] [phone] PCP - General 05/04/15 05/17/23 documented as of this encounter
--- OUTSIDE RECORDS SUMMARY | 2024-01-12 11:23 | XMS_ITS | Encounter Summary ---
Author Organization [facility] Address [address] [place] [address] Care Team Providers Care Materials Engineering Technician Name Role Phone Bryant Crain MD Primary Care Provider [phone] Carlos Ha MINE BOSS Unavailable [phone] Elba Jett MD Primary Care Provider [phone] Encounter Details Date Type Department Care Team (Late st Contact Info) Description 12/11/2019 Lab Requisition [facility] Pathology & Laboratory Medicine - [address] [address] Outr Resulting Lab, Provider Social [...] 03/08/2024 9:30 EDT Ancillary Procedure [facility] Cardiology - [facility] [address] [place], [place] [id number] 03/08/2024 10:15 EDT Ancillary Procedure [facility] Cardiology - [facility] [address] [place], [place] [id number] 04/05/2024 10:00 EDT Ancillary Procedure [facility] Cardiology Clinic [address] [place], [place] [phone] 04/05/2024 10:00 EDT Office Visit [facility] Cardiology Clinic [address] [place] [address] Carlos Ha NP 130 [facility] [address] [place] [address] documented as of this encounter Procedures Procedure Name Priority Date/Time Associated Diagnosis Comments PTH INTACT Routine 12/11/2019 14:47 EDT documented in this encounter Results * PTH INTACT (12/11/2019 14:47 EDT) Intact PTH 64 19 - 88 pg/mL 12/12/2019 11:39 EDT [facility] Blood VENOUS BLOOD / Unknown 12/11/2019 14:47 EDT 12/12/2019 10:45 EDT Provider Outr Resulting Lab CHEMISTRY & BLOOD GAS ORDERABLES [facility] [address] [place] [address] documented in this encounter Visit Diagnoses Not on filedocumented in this encounter Care Teams Materials Engineering Technician Relationship Specialty Start Date End Date Bryant Crain MD [address] [place], [place] [phone] PCP - General 05/04/15 05/17/23 Elba Jett MD [address] [place] [phone] PCP - General Family Medicine - Primary Care 05/18/23 Carlos Ha NP [address] [place] [phone] Consulting Clinician Cardiovascular Disease 09/14/21 documented as of this encounter
--- OUTSIDE RECORDS SUMMARY | 2024-01-12 11:23 | XMS_ITS | Encounter Summary ---
Author Organization [facility] Address [address] [place] [address] Care Team Providers Care Marketing Content Manager Name Role Phone Bryant Crain MD Primary Care Provider [phone] Reason for Visit * (Routine) - Order Cancelled Specialty Diagnoses / Procedures Referred By Charo daniel Referred To Contact Diagnoses Status post placement of implantable loop recorder Procedures CARDIAC IMPLANT CHECK - IN CLINIC Ana Epperson, FORKLIFT OPERATOR 130 [facility] [address] [address] Referral ID Status Reason Start Date Expiration Date V isits Requested Visits Authorized [id number] Order Cancelled 06/05/2019 1 1 Encounter Details Date Type Department Care Team (Latest Contact Info) Description 11/23/2019 9:45 EDT Ancillary Procedure [facility] Cardiology Clinic [address] [place] [address] Status post placement of implantable loop recorder [...] Description 03/08/2024 9:30 EDT Ancillary Procedure [facility] Cardiology - [facility] [address] [place] [address] 03/08/2024 10:15 EDT Ancillary Procedure [facility] Cardiology - [facility] [address] [place] [address] 04/05/2024 10:00 EDT Ancillary Procedure [facility] Cardiology Clinic [address] [place] [address] 04/05/2024 10:00 EDT Office Visit [facility] Cardiology Clinic [address] [place] [phone] Carlos Ha NP 130 [facility] [address] [place] [phone] Pending Results Name Type Priority Associated Diagnoses Date /Time CARDIAC IMPLANT CHECK - IN CLINIC Implantable Cardiac Device Routine Status post placement of implantable loop recorder 11/27/2019 13:08 EDT documented as of this encounter Visit Diagnoses Diagnosis Status post placement of implantable loop recorder Other specified cardiac device in situ documented in this encounter Care Teams Marketing Content Manager Relationship Specialty Start Date End Date Bryant Crain MD [address] [place] [address] PCP - General 05/04/15 05/17/23 documented as of this encounter
--- OUTSIDE RECORDS SUMMARY | 2024-01-12 11:23 | XMS_ITS | Encounter Summary ---
Author Organization [facility] Address [address] [place] [address] Care Team Providers Care Scratcher Tender Name Role Phone Bryant Crain MD Primary Care Provider [phone] Reason for Visit * Reason Comments Pacemaker/Device Check 3 mos Encounter Details Date Type Department Care Team (Latest Contact Info) Description 02/23/2020 12:00 EDT Office Visit [facility] Cardiology Clinic [address] [place], [place] [address] Carlos Macario NP 130 [facility] [address] [place] [address] Status post placement of implantable [...] accident (CVA) ([facility]) 06/01/2019 ??? Diabetes mellitus, type 2 ([facility]) 01/26/2011 On metformin On metformin [...] LDL 156 (H) 06/05/2019 TRIG 256 06/05/2019 [facility] Cardiology ILR Visit Mirror Maker: Room Choice Device Type: Implantable loop recorder Service: Office [...] 1315 EDTAssociated Problem(s): Paroxysmal atrial fibrillation ([facility]) No further episodes noted on program evaluation [...] Info) Description 03/08/2024 9:30 EDT Ancillary Procedure [facility] Cardiology - [address] [place] [address] 03/08/2024 10:15 EDT Ancillary Procedure [facility] Cardiology [address] [place] [address] 04/05/2024 10:00 EDT Ancillary Procedure [facility] Cardiology Clinic [address] [place] [id number] 04/05/2024 10:00 EDT Office Visit [facility]iology Clinic [address] [place] [address] Carlos Macario, RADIO INSTALLER AUTOMOBILE [address] [place] [address]-[address] [place] [phone] documented as of this encounter Visit Diagnoses [...] 07/10/2020 added in this encounter Care Teams Scratcher Tender Relationship Specialty Start Date End Date Bryant Crain MD [address] [place], [place] [phone] PCP - General 05/04/15 05/17/23 documented as of this encounter
--- OUTSIDE RECORDS SUMMARY | 2024-01-12 11:23 | XMS_ITS | Encounter Summary ---
Author Organization [facility] Address [address] [place] [address] Care Team Providers Care Clear Coat Sprayer Name Role Phone Bryant Crain MD Primary Care Provider Carlos Ha WELLFIELD TECHNICIAN Unavailable [phone] Elba Jett MD Primary Care Provider [phone] Encounter Details Date Type Department Care Team (Late st Contact Info) Description 12/05/2019 Results Only Imaging [facility] Cardiology Clinic [address] [place] [address] Ana Epperson, RAHEEM Social History Tobacco [...] 03/08/2024 9:30 EDT Ancillary Procedure [facility] Cardiology - [address] [place] [address] 03/08/2024 10:15 EDT Ancillary Procedure [facility] Cardiology - [facility] [address] [place] [address] 04/05/2024 10:00 EDT Ancillary Procedure [facility] Cardiology Clinic [address] [place] [id number] 04/05/2024 10:00 EDT Office Visit [facility] Cardiology Clinic [address] [place], [place] [phone] Carlos Ha NP 130 [facility] [address] [place] [address] documented as of this encounter [...] R07.9 CHEST PAIN, UNSPECIFIED TYPE ? *[facility]* ? *[facility]* ? [address] [facility] ? [place] [address] ? Myocardial Perfusion Imaging - SPECT ? [...] heart rate and ? blood pressure was 82779rv Hg/min. ? Stress ECG: ? RESTING LEXISCAN [...] procedure. This study was interpreted by [facility]. ? Study status: ??Routine. ? Consent: [...] this study was interpreted by Nuclear ? Seam Sewer Stone Argueta MD. ? - The Stress ECG portion of this study was interpreted by Stone ? MD Ellie. ? Electronically signed by ? Stone Argueta ? 12/05/2019 10:27 ?Reported By: Stone Argueta MD ? CC: ? Transcribed Date/Time: 12/05/2019 (8336) ? Plastic Surgery Nurse: BILL ? Printed Date/Time: 12/05/2019 (491) ? PAGE 3 ? Signed Report ? Procedure Note Stone Argueta MD - 12/05/2019 EXAM: NUCLEAR MEDICINE/NUCLEAR STRESS FUNMILAYO EX. D/ (0853) CLINICAL INFORMATION: R07.9 CHEST PAIN, UNSPECIFIED TYPE *[facility]* *[facility]* [address] [place] [address] Myocardial Perfusion Imaging - SPECT Regadenoson Date [...] the peak heart rateand blood pressure was 97622tu Hg/min. Stress ECG: RESTING LEXISCAN STUDY] NO [...] This study was interpreted by [facility] Cardiology. Study status: Routine. Consent: The [...] of this study was interpreted by Nuclear Seam Sewer Stone Argueta MD. - The Stress ECG portion of this study was interpreted by Stone Argueta MD. Electronically signed by Stone Argueta 12/05/2019 10:27 Reported By: Stone Argueta MD CC: Transcribed Date/Time: 12/05/2019 (7789) Plastic Surgery Nurse: BILL Printed Date/Time: 12/05/2019 (1883) PAGE 3 Signed Report Ana Epperson WELLFIELD TECHNICIAN CARDIAC NM ORDERABLE S * NM CARD SPECT NUCLEAR STRESS (12/05/2019 10:00 EDT) Anatomical Region Laterality Modality Chest Nuclear Stress 12/05/2019 10:0 0 EDT Narrative 12/05/2019 10:27 EDT *[facility]* *[facility]* [address] [place] [address] Myocardial Perfusion Imaging - SPECT Regadenoson Date of study: ??12/05/2019 *PATIENT PRESENTATION* Height: ? 157.5cm (62in) Blood Pressure: Weight: ? 74.1kg (163lb) BSA: ?1.83m^2 Ordering physician: Ana Epperson Union Representative-Bc Impressions: - Normal perfusion by Tc99m Sestamibi [...] peak heart rate and blood pressure was 20217aq Hg/min. Stress ECG: RESTING LEXISCAN STUDY] NO [...] procedure. This study was interpreted by [facility] Cardiology. ??Study status: ??Routine. ??Consent: ??The [...] of this study was interpreted by Nuclear ??Seam Sewer Stone Argueta MD. - The Stress ECG portion of this study was interpreted by Stnoe ??MD Ellie. Electronically signed by Stone Argueta 12/05/2019 10:27 Procedure Note Stone Argueta MD - 12/05/2019 *[facility]* *[facility]* [address] [place] [address] Myocardial Perfusion Imaging - SPECT Regadenoson Date [...] Risk factors: Hypertension. Diabetes mellitus. MEDS: SEE [employer]. Imaging Technique: Protocol: Regadenoson. Acquisition: Gated SPECT; [...] peak heart rate and blood pressure was 29484vz Hg/min. Stress ECG: RESTING LEXISCAN STUDY] NO [...] procedure. This study was interpreted by [facility] Cardiology. Study status: Routine. Consent: The [...] of this study was interpreted by Nuclear Seam Sewer Stone Argueta MD. - The Stress ECG portion of this study was interpreted by Stone Argueta MD. Electronically signed by Stone Argueta 12/05/2019 10:27 Ana Epperson WELLFIELD TECHNICIAN CARDIAC NM ORDERABLE S documented in this encounter Visit Diagnoses Not on filedocumented in this encounter Care Teams Clear Coat Sprayer Relationship Specialty Start Date End Date Bryant Crain MD [address] [place] [address] PCP - General 05/04/15 05/17/23 Elba Jett MD [address] [place] [phone] PCP - General Family Medicine - Primary Care 05/18/23 Carlos Ha NP [address] [place] [address] [address] Consulting Clinician Cardiovascular Disease 09/14/21 documented as of this encounter
--- OUTSIDE RECORDS SUMMARY | 2024-01-12 11:23 | XMS_ITS | Encounter Summary ---
Author Organization [facility] Address [address] [place] [address] Care Team Providers Care Food Taster Name Role Phone Bryant Crain MD Primary Care Provider [phone] Encounter Details Date Type Department Care Team [...] Info) Description 03/08/2024 9:30 EDT Ancillary Procedure [facility] Cardiology - [address] [place] [address] 03/08/2024 10:15 EDT Ancillary Procedure [facility] [place] [address] 04/05/2024 10:00 EDT Ancillary Procedure [facility] Cardiology Clinic [address] [place] [phone] 04/05/2024 10:00 EDT Office Visit [facility] Cardiology Clinic [address] [place] [phone] Carlos Ha NP [address] [place] [address] [address]OB[address] [place] [address] documented as of this encounter Visit Diagnoses Not on filedocumented in this encounter Care Teams Food Taster Relationship Specialty Start Date End Date Bryant Crain MD [address] [place], [place] [phone] PCP - General 05/04/15 05/17/23 documented as of this encounter
--- OUTSIDE RECORDS SUMMARY | 2024-01-12 11:23 | XMS_ITS | Encounter Summary ---
Author Organization [facility] Address [address] [place] [address] Care Team Providers Care Industrial Order Clerk Name Role Phone Bryant Crain MD Primary Care Provider [phone] Encounter Details Date Type Department Care Team (Late st Contact Info) Description 05/13/2020 Orders Only [facility] [address] [place] [address] Ana Epperson, RAHEEM Status post placement of [...] Info) Description 03/08/2024 9:30 EDT Ancillary Procedure [facility] Cardiology - [place] [address] [place] [address] 03/08/2024 10:15 EDT Ancillary Procedure [facility] Cardiology [facility] [address] [place] [address] 04/05/2024 10:00 EDT Ancillary Procedure [facility] Cardiology Clinic [address] [place] [address] 04/05/2024 10:00 EDT Office Visit [facility] Cardiology Clinic [address] [place] [address] Carlos Macario NP 130 [facility] [address] [place] [address] documented as of this encounter [...] situ documented in this encounter Care Teams Industrial Order Clerk Relationship Specialty Start Date End Date Bryant Crain MD [address] [place], [place] [phone] PCP - General 05/04/15 05/17/23 documented as of this encounter
--- OUTSIDE RECORDS SUMMARY | 2024-01-12 11:23 | XMS_ITS | Encounter Summary ---
Author Organization [facility] Address [address] [place] [address] Care Team Providers Care Solutions Developer Name Role Phone Bryant Crain MD Primary Care Provider Reason for Visit * Reason Comments Diabetes Encounter Details Date Type Department Care Team (Latest Contact Info) Description 12/04/2020 10:15 EDT Office Visit [facility] Endocrinology [address] [place] [address] Sarika Zamudio, CUSTOMER OPERATIONS REPRESENTATIVE 130 [facility] [address] [place] [phone] Type 2 diabetes mellitus with hyperglycemia, with long-term current use of insulin ([facility]) (Primary Dx); Primary hyperparathyroidism (HCC-CMS); Fatigue, unspecified [...] to the clinic for a follow-up in [facility], with a history of [...] eye exam notes sent over by PCP. [facility] DM: unsure if father had DM [...] (within one year): UTD, sees [place] Last dental exam: overdue. Will schedule. CVD,PVD,CAD: HTN, HLD,CVA Statin: repatha injections. Aspirin: yes ACEI/ARB: candesartan 32 mg Prior visit with it instructor: yes, JALEN Hyman. Foot care: podiatry Comorbidities: [...] % Final No results found for: MICROALBUR, [id number] Lab Results Component Value Date NA 137 11/23/2019 K 5.1 (H) 11/23/2019 CL 108 11/23/2019 CO2 20 (L) 11/23/2019 BUN 26 11/23/2019 GLU 199 (H) 11/23/2019 CA 11.2 (H) 11/23/2019 Joanna Hart is a 70 y.o. female who presented to the clinic for a follow-up in [facility], with a history of DM for 14 yrs. Problem List Items Addressed This Visit Endocrine/Metabolic Diabetes mellitus, type 2 ([facility]) - Primary Controlled A1C 6.9. Congratulated on [...] if needed. Relevant Orders VITAMIN B12 URINE [id number] RATIO (ACR) Primary hyperparathyroidism ([facility]) Encouraged to increase hydration 5-6 bottles water/day, [...] for further w/up. Will reach out to nutrition representative as well. We did discuss giving her [...] Problem(s): Stage 3b chronic kidney disease ([facility]) Stable. Labs ordered. Pending MALB, GFR will start SGLT. * Assessment & Plan Note - Sarika Zamudio APRN - 12/04/2020 1056 EDT Associated Problem(s): Fatigue ?cardiac vs orthostatic hypotension vs glucose regulation. Has upcoming ECHO scheduled. Discussed checking BP at home with lightheadedness. Has upcoming visit with PCP for further w/up. Will reach out to nutrition representative as well. We did discuss giving her body time to adjust to BG's normalizing, did lower lantus and humalog today. * Assessment & Plan Note - Sarika Zamudio APRN - 12/04/2020 1041 EDT Associated Problem(s): Primary hyperparathyroidism ([facility]) Encouraged to increase hydration 5-6 bottles water/day, this can include tea/crystal light. Will check calcium levels yearly, more often with change in kidney function. * Assessment & Plan Note - Sarika Zamudio APRN - 12/04/2020 1029 EDT Associated Problem(s): Diabetes mellitus, type 2 ([facility]) Controlled A1C 6.9. Congratulated on success! Lower [...] Ancillary Procedure [facility] Cardiology - [address] [place] [address] 03/08/2024 10:15 EDT Ancillary Procedure [facility] Cardiology - [address] [place] [address] 04/05/2024 10:00 EDT Ancillary Procedure [facility] Cardiology Clinic [address] [place], [place] [address] 04/05/2024 10:00 EDT Office Visit [facility] Cardiology Clinic [address] [place], [place] [phone] Carlos Ha NP 130 [facility] [address]OB-[address] [place] [phone] documented as of this encounter Visit Diagnoses Diagnosis Type 2 diabetes mellitus with hyperglycemia, with long-term current use of insulin (HCC-CMS)- Primary Primary hyperparathyroidism (HCC-CMS) Primary hyperparathyroidism Fatigue, unspecified type Stage 3b chronic kidney disease (HCC-CMS) documented in this encounter Care Teams Solutions Developer Relationship Specialty Start Date End Date Bryant Crain MD [address] [place] [address] PCP - General 05/04/15 05/17/23 documented as of this encounter
--- OUTSIDE RECORDS SUMMARY | 2024-01-12 11:23 | XMS_ITS | Encounter Summary ---
Author Organization [facility] Address [address] [place] [address] Care Team Providers Care Public Health Clinical Nurse Specialist Name Role Phone Bryant Crain MD Primary Care Provider [phone] Encounter Details Date Type Department Care Team (Late st Contact Info) Description 01/15/2020 Orders Only [facility] Cardiology Clinic [address] [place] [address] Ana Epperson, RAHEEM Status post placement of [...] Description 03/08/2024 9:30 EDT Ancillary Procedure [facility] Cardiology - [address] [place], [place] [id number] 03/08/2024 10:15 EDT Ancillary Procedure [facility] Cardiology - [address] [place] [address] 04/05/2024 10:00 EDT Ancillary Procedure [facility] Cardiology Clinic [address] [place], [place] [address] 04/05/2024 10:00 EDT Office Visit [facility] Cardiology Clinic [address] [place], [place] [address] Carlos Ha NP 130 [facility] [address] [place] [address] documented as of this encounter [...] situ documented in this encounter Care Teams Public Health Clinical Nurse Specialist Relationship Specialty Start Date End Date Bryant Crain MD [address] [place], [place] [phone] PCP - General 05/04/15 05/17/23 documented as of this encounter
--- OUTSIDE RECORDS SUMMARY | 2024-01-12 11:23 | XMS_ITS | Encounter Summary ---
Author Organization [facility] Address [address] [place] [address] Care Team Providers Care Core Layer Machine Operator Name Role Phone Bryant Crain MD Primary Care Provider [phone] Encounter Details Date Type Department Care Team (Late st Contact Info) Description 12/09/2020 Orders Only [facility] Cardiology Clinic [address] [place] [address] Sabrina Herring MA Cryptogenic stroke (HCC-CMS) (Primary [...] System Cardiology - [address] [place] [address] 03/08/2024 10:15 EDT Ancillary Procedure [facility] Cardiology - [address] [place] [address] 04/05/2024 10:00 EDT Ancillary Procedure [facility] Cardiology Clinic [address] [place] [id number] 04/05/2024 10:00 EDT Office Visit [facility] Cardiology Clinic [address] [place], [place] [address] Carlos Ha NP 130 [facility] [address] [place] [address] documented as of this encounter [...] remote download. Carlos Ha APRN Carlos Ha BOAT PAINTER CV IMPLANTABLE CARDI AC DEVICE documented in this encounter Visit Diagnoses Diagnosis Cryptogenic stroke (HCC-CMS)- Primary Unspecified cerebral artery occlusion with cerebral infarction documented in this encounter Care Teams Core Layer Machine Operator Relationship Specialty Start Date End Date Bryant Crain MD [address] [place] [address] PCP - General 05/04/15 05/17/23 documented as of this encounter
--- OUTSIDE RECORDS SUMMARY | 2024-01-12 11:23 | XMS_ITS | Encounter Summary ---
Author Organization [facility] Address [address] [place] [address] Care Team Providers Care Sales Manager Prearranged Funerals Name Role Phone Bryant Crain MD Primary Care Provider [phone] Carlos Ha RN MANAGER Unavailable [phone] Elba Jett MD Primary Care Provider [phone] Encounter Details Date Type Department Care Team (Late st Contact Info) Description 08/31/2020 Lab Requisition [facility] Pathology & Laboratory Medicine - [address] [address] Outr Resulting Lab, Provider Social [...] 03/08/2024 9:30 EDT Ancillary Procedure [facility] Cardiology - [facility] [place], [place] [id number] 03/08/2024 10:15 EDT Ancillary Procedure [facility] Cardiology - [facility] [place], [place] [id number] 04/05/2024 10:00 EDT Ancillary Procedure [facility] [address] [place] [id number] 04/05/2024 10:00 EDT Office Visit [facility] [address] [place] [id number] Carlos Ha NP 130 [facility] [address] [address] documented as of this encounter Procedures Procedure Name Priority Date/Time Associated Diagnosis Comments PTH INTACT Routine 08/30/2020 11:15 EST documented in this encounter Results * (ABNORMAL) PTH INTACT (08/30/2020 11:15 EST) Intact PTH 100(H) 19 - 88 pg/mL 09/02/2020 9:28 EDT [facility] Blood VENOUS BLOOD / Unknown 08/30/2020 11:15 EST 09/01/2020 16:27 EDT Provider Outr Resulting Lab CHEMISTRY & BLOOD GAS ORDERABLES [facility] [address] [place] [address] documented in this encounter Visit Diagnoses Not on filedocumented in this encounter Care Teams Sales Manager Prearranged Funerals Relationship Specialty Start Date End Date Bryant Crain MD [address] [place], [place] [id number] PCP - General 05/04/15 05/17/23 Elba Jett MD [address] [place] [phone] PCP - General Family Medicine - Primary Care 05/18/23 Carlos Ha NP [address] [place] [address] [phone] Consulting Clinician Cardiovascular Disease 09/14/21 documented as of this encounter
--- OUTSIDE RECORDS SUMMARY | 2024-01-12 11:23 | XMS_ITS | Encounter Summary ---
Author Organization [facility] Address [address] [place] [address] Care Team Providers Care Outside Parts Sales Name Role Phone Bryant Crain MD Primary Care Provider [phone] Encounter Details Date Type Department Care Team (Late st Contact Info) Description 04/12/2020 Orders Only [facility] Cardiology Clinic [address] [place] [address] Ana Epperson, RAHEEM Status post placement of [...] Ancillary Procedure [facility] Cardiology - [place] [address] [place] [address] 03/08/2024 10:15 EDT Ancillary Procedure [facility] Cardiology - [facility] [address] [place] [address] 04/05/2024 10:00 EDT Ancillary Procedure [facility] [address] [place] [address] 04/05/2024 10:00 EDT Office Visit [facility] [address] [place] [address] Carlos Ha NP 130 [facility] [address] [place] [address] documented as of this encounter [...] scanned documents for full details. Ana A Boley WELLNESS COORDINATOR CV IMPLANTABLE CARDI AC DEVICE documented in this encounter Visit Diagnoses Diagnosis Status post placement of implantable loop recorder- Primary Other specified cardiac device in situ documented in this encounter Care Teams Outside Parts Sales Relationship Specialty Start Date End Date Bryant Crain MD [address] [place] [address] PCP - General 05/04/15 05/17/23 documented as of this encounter
--- OUTSIDE RECORDS SUMMARY | 2024-01-12 11:24 | XMS_ITS | Encounter Summary ---
Author Organization [facility] Address [address] [place] [address] Care Team Providers Care Tape Weaver Name Role Phone Bryant Crain MD Primary Care Provider [phone] Encounter Details Date Type Department Care Team (Late st Contact Info) Description 03/15/2018 Historical Results Only [facility] - Main [place] [address] [place] [id number] Janki Jeffries MD [address] [place] [address] [place] [address] Social History Tobacco Use Types [...] Procedure [facility] Cardiology - [address] [place], [place] [id number] 03/08/2024 10:15 EDT Ancillary Procedure [facility] Cardiology - [place] [id number] 04/05/2024 10:00 EDT Ancillary Procedure [facility] Cardiology Clinic [address] [place] [address] 04/05/2024 10:[address] [facility] Cardiology Clinic [address] [place], [place] [address] Carlos Ha NP 130 [facility] [address] [place] [address] documented as of this encounter Procedures Procedure Name Priority Date/Time Associated Diagnosis Comments COMPLETE BLOOD COUNT WITH DIFFERENTIAL (AUTO) Routine 03/15/2018 10:00 EDT documented in this encounter Results * (ABNORMAL) COMPLETE BLOOD COUNT WITH DIFFERENTIAL (AUTO) (03/15/2018 10:00 EDT) ABSOLUTE NEUTROPHIL COUN - [facility] 6.63 1.7 - 7.0 10e3/ul 03/15/2018 15:27 [facility] BASO # - [facility] 0.06 0.0 - 0.3 10e3/uL 03/15/2018 15:27 [facility] BASO % - [facility] 1 0 - 2 % 03/15/2018 15:27 [facility] EOS # - [facility] 1.54(H) 0.05 - 0.5 10e3/uL 03/15/2018 15:27 [facility] EOS % - [facility] 12(H) 0 - 5 % 03/15/2018 15:27 [facility] GRAN % - [facility] 51 40 - 80 % 03/15/2018 15:27 [facility] HEMATOCRIT - [facility] 40.6 34.0 - 47.0 % 03/15/2018 15:27 [facility] HEMOGLOBIN - [facility] 13.4 11.2 - 15.7 g/dl 03/15/2018 15:27 [facility] IG# - [facility] 0.04 0 - 0.07 10e3/uL 03/15/2018 15:27 [facility] IG% - [facility] 0.3 0 - 0.9 % 03/15/2018 15:27 [facility] LYMPH # - [facility] 3.94(H) 0.9 - 2.9 10e3/uL 03/15/2018 15:27 [facility] LYMPH% - [facility] 30 20 - 40 % 03/15/2018 15:27 [facility] MEAN CORPUSCULAR HGB - [facility] 29.6 26 - 34 pg 03/15/2018 15:27 [facility] MEAN CORPUSCULAR HGB CONC - [facility] 33.0 31 - 36 g/dL 03/15/2018 15:27 [facility] MEAN CELL VOLUME - [facility] 89.6 77 - 100 fl 03/15/2018 15:27 [facility] MONO # - [facility] 0.88 0.3 - 0.9 10e3/uL 03/15/2018 15:27 [facility] MONO% - [facility] 7 0 - 12 % 03/15/2018 15:27 [facility] PLATELET COUNT 352 150 - 400 10e3/ul 03/15/2018 15:27 [facility] RED BLOOD COUNT - [facility] 4.53 3.8 - 5.2 10e6/ul 03/15/2018 15:27 [facility] RED CELL DISTRI WIDTH - [facility] 13.7 11.8 - 15.6 % 03/15/2018 15:27 [facility] WHITE BLOOD COUNT - [facility] 13.1(H) 3.5 - 10.5 10e3/ul 03/15/2018 15:27 [facility] 03/15/2018 10:0 0 EDT 03/15/2018 15:21 EDT Janki Jeffries MD HEMATOLOGY & PF4 ORD ERABLES [facility] documented in this encounter Visit Diagnoses Not on filedocumented in this encounter Care Teams Tape Weaver Relationship Specialty Start Date End Date Bryant Crain MD [address] [place] [address] PCP - General 05/04/15 05/17/23 documented as of this encounter
--- OUTSIDE RECORDS SUMMARY | 2024-01-12 11:24 | XMS_ITS | Encounter Summary ---
Author Organization [facility] Address [address] [place] [address] Care Team Providers Care Orthodontic Assistant Name Role Phone Bryant Crain MD Primary Care Provider [phone] Encounter Details Date Type Department Care Team (Late st Contact Info) Description 10/18/2017 Historical Results Only [facility] Lab - Main [place] [address] [place] [id number] Janki Jeffries MD [address] [place] [address] [place] [address] Social History Tobacco Use Types [...] 9:30 EDT Ancillary Procedure [facility] Cardiology - [address] [place], [place] [id number] 03/08/2024 10:15 EDT Ancillary Procedure [facility] Cardiology - [address], [place] [id number] 04/05/2024 10:00 EDT Ancillary Procedure [facility]iology Clinic [address] [place] [address] 04/05/2024 10:00 EDT [facility] [address] [place], [place] [address] Carlos Ha NP 130 [facility] [address] [place] [phone] documented as of this encounter Procedures Procedure Name Priority Date/Time Associated Diagnosis Comments MICROALBUMIN, URINE Routine 10/18/2017 1 1:30 EDT URINE [id number] NE RATIO (ACR) Routine 10/18/2017 11:30 EDT documented in this encounter Results * (ABNORMAL) MICROALBUMIN, URINE (10/18/2017 11:30 EDT) Albumin, Urine 9.80(H) <1.7 mg/dL 10/18/2017 19:37 EDT [facility] Urine Albumin to Creatinine Ratio 147.5 ug/mg 10/18/2017 19:37 EDT [facility] Comment: Normal: <30 ug/mg Creat Microalbuminuria: 30-300 ug/mg Creat Clinical albuminuria: >300 ug/mg Creat Creatinine, Urine 66.40 mg/dL 10/18/2017 19:37 EDT [facility] 10/18/2017 11:3 0 EDT 10/18/2017 17:14 EDT Janki Jeffries MD HEMATOLOGY & PF4 ORD ERABLES [facility] * (ABNORMAL) ALBUMIN, URINE (10/18/2017 11:30 EDT) Albumin, Urine 9.80(H) <1.7 mg/dL 10/18/2017 19:37 EDT [facility] Urine Albumin to Creatinine Ratio 147.5 ug/mg 10/18/2017 19:37 T [facility] Comment: Normal: <30 ug/mg Creat Microalbuminuria: 30-300 ug/mg Creat Clinical albuminuria: >300 ug/mg Creat Creatinine, Urine 66.40 mg/dL 10/18/2017 19:37 EDT [facility] 10/18/2017 11:3 0 EDT 10/18/2017 17:14 EDT Janki Jeffries MD CHEMISTRY & BLOOD GA S ORDERABLES [facility] documented in this encounter Visit Diagnoses Not on filedocumented in this encounter Care Teams Orthodontic Assistant Relationship Specialty Start Date End Date Bryant Crain MD [address] [place] [address] PCP - General 05/04/15 05/17/23 documented as of this encounter
--- OUTSIDE RECORDS SUMMARY | 2024-01-12 11:24 | XMS_ITS | Encounter Summary ---
[place] [address] Care Team Providers Care Medical Facilities Section Director Name Role Phone Bryant Crain MD Primary Care Provider Reason for Visit * Diagnostic Test (Routine) - Closed Specialty Diagnoses / Procedures Referred By Charo daniel Referred To Contact Radiology Diagnoses Parkinson's disease Procedures NM Brain Imaging for Parkinsons Disease Zandra Paredes MD [facility] [address] [place] [address] [place] [address] Referral ID Status Reason Start Date Expiration Date V isits Requested Visits Authorized [id number] Closed Specialty Service Requested 08/07/2021 02/04/2023 1 1 Encounter Details Date Type Department Care Team (Late st Contact Info) Description 10/21/2021 12:59 PM EDT - 10/21/2021 11:59 PM EDT Hospital Encounter [place] [address] Zandra Paredes MD [facility] [address] [place], [place] [phone] Discharge Disposition: Home Social History Tobacco Use [...] Care Team (Late st Contact Info) Description 01/14/2024 4:00 PM EDT Office Visit Dermatology at [place] [address] [place] [address] Ed Geller MD [address] [facility] DERMATOLOGY [place], [place] [phone] documented as of this encounter Procedures Procedure [...] who have questions please contact the health after school caregiver that requested your imaging first. ? Narrative [...] patients who have questions please contactthe health after school caregiver that requested your imaging first. Zandra Paredes MD IMG NM ORDERABLES documented in this encounter Visit Diagnoses Not on filedocumented in this encounter Care Teams Medical Facilities Section Director Relationship Specialty Start Date End Date Bryant Crain MD [address] [place] [address] PCP - General Internal Medicine 04/15/18 documented as of this encounter
--- OUTSIDE RECORDS SUMMARY | 2024-01-12 11:24 | XMS_ITS | Encounter Summary ---
[place] [address] Care Team Providers Care Manager Private Name Role Phone Bryant Crain MD Primary Care Provider [phone] Encounter Details Date Type Department Care Team (Latest Contact Info) Description 11/28/2023 9:05 PM EDT Telehealth notes [place] [address] Telehealth, Neurology None Bilateral leg numbness; Vertigo [...] Mae MD - 11/28/2023 9:05 PM EDT [facility] T[facility] EMERGENT TELENEUROLOGY CONSULT NOTE Date 11/28/23 Patient: Joanna Hart : 1950 Gender: female VISIT Requesting Location: [facility] Requesting Physician: Fatemeh Patiño APRN Diagnosis/Reason for [...] acute infarct then I would continue low-dose [id number] mg/day in the form of Ecotrin. If [...] Patiño APRN in the emergency department at [facility] who voiced understanding and agreement. documented in this encounter Plan of Treatment Upcoming Encounters Date Type Department Care Team (Late st Contact Info) Description 01/14/2024 4:00 PM EDT Office Visit Dermatology at [place] [address] [place] [address] Ed Geller MD [address] [facility] [place] [address] documented as of this encounter Visit Diagnoses Diagnosis Bilateral leg numbness Disturbance of skin sensation Vertigo Dizziness and giddiness documented in this encounter Care Teams Manager Private Relationship Specialty Start Date End Date Bryant Crain MD [address] [place] [address] PCP - General Internal Medicine 04/15/18 documented as of this encounter
--- OUTSIDE RECORDS SUMMARY | 2024-01-12 11:24 | XMS_ITS | Encounter Summary ---
[place] [address] Care Team Providers Care Lead Business Systems Analyst Name Role Phone Franny Davison MD Primary Care Provider [phone] Reason for Visit * Reason Onset Date Comments Medication Refill 03/26/2017 Encounter Details Date Type Department Care Team (Late st Contact Info) Description 03/26/2017 [place] [address] Erin Chery MA Social History Tobacco Use [...] 4:00 PM EDT Office Visit Dermatology at [place] [address] [place] [phone] Ed Geller MD [address] [facility] DERMATOLOGY [place], [place] [phone] documented as of this encounter Visit Diagnoses Not on filedocumented in this encounter Care Teams Lead Business Systems Analyst Relationship Specialty Start Date End Date Franny Davison MD [address] [place] [address] PCP - General 05/13/10 04/14/18 documented as of this encounter
--- OUTSIDE RECORDS SUMMARY | 2024-01-12 11:24 | XMS_ITS | Encounter Summary ---
Author Organization [facility] [place] [address] Care Team Providers Care Sizing Sprayer Name Role Phone Bryant Crain MD Primary Care Provider [phone] Reason for Visit * Auth/Cert (Routine) Specialty Diagnoses / Procedures Referred By Contloreto t Referred To Contact Diagnoses Gastrointestinal hemorrhage, unspecified Procedures [place] [employer] [facility] Referral ID Status Reason Start Date Expiration Date Visits Re quested Visits Authorized [id number] 1 1 Encounter Details Date Type Department Care Team (Latest Contact Info) Description 11/11/2022 11:43 AM EDT - 11/11/2022 11:59 PM EDT Hospital Encounter [facility] at [address] [phone] Micha Tejeda MD [facility] [address] [place] [address] Discharge Disposition: Home Social History Tobacco Use [...] 4:00 PM EDT Office Visit Dermatology at [place] [address] [place] [address] Ed Geller MD [address] [facility] [place] [address] documented as of this encounter Visit Diagnoses Not on filedocumented in this encounter Care Teams Sizing Sprayer Relationship Specialty Start Date End Date Bryant Crain MD [address] [place] [address] PCP - General Internal Medicine 04/15/18 documented as of this encounter
--- OUTSIDE RECORDS SUMMARY | 2024-01-12 11:24 | XMS_ITS | Encounter Summary ---
[place] [address] Care Team Providers Care Card Punching Machine Operator Name Role Phone Bryant Crain MD Primary Care Provider Encounter Details Date Type Department Care Team (Late st Contact Info) Description 10/30/2022 External [place] [phone] Social History Tobacco Use Types Packs/Day Years [...] 4:00 PM EDT Office Visit Dermatology at [place] [address] [facility] [phone] Ed Geller MD [address] [facility] [place] [address] documented as of this encounter Procedures Procedure Name Priority Date/Time Associated Diagnosis Comments ECG SCAN Routine 10/30/2022 documented in this encounter Results * Scan Doc: ECG (10/30/2022) Historical Provider MEDIA MGR SCAN EX T ORDR/RSLT documented in this encounter Visit Diagnoses Not on filedocumented in this encounter Care Teams Card Punching Machine Operator Relationship Specialty Start Date End Date Bryant Crain MD [address] [place] [address] PCP - General Internal Medicine 04/15/18 documented as of this encounter
--- OUTSIDE RECORDS SUMMARY | 2024-01-12 11:24 | XMS_ITS | Encounter Summary ---
Author Organization [facility] Address [address] [place] [address] Care Team Providers Care Supervisor Kennel Name Role Phone Bryant Crain MD Primary Care Provider [phone] Reason for Visit * (Routine) - Closed Specialty Diagnoses / Procedures Referred By Charo daniel Referred To Contact Diagnoses Status post placement of implantable loop recorder Procedures CARDIAC IMPLANT CHECK - IN CLINIC Ana Epperson, FINANCIAL EXAMINER [address] [facility] [address] [address] Referral ID Status Reason Start Date Expiration Date Visits Re quested Visits Authorized [id number] Closed 06/05/2019 1 1 Encounter Details Date Type Department Care Team (Late st Contact Info) Description 06/05/2019 10:00 EST Ancillary Procedure [facility] Cardiology Clinic [address] [place], [place] [address] Social History Tobacco Use Types Packs/Day Years [...] EDT Ancillary Procedure [facility] Cardiology - [facility] [address] [place], [place] [phone] 03/08/2024 10:15 EDT Ancillary Procedure [facility] Cardiology - [address] [place], [place] [phone] 04/05/2024 10:00 EDT Ancillary Procedure [facility] Cardiology Clinic [address] [place], [place] [address] 04/05/2024 10:00 EDT Office Visit [facility] Cardiology Clinic [address] [place], [place] [address] Carlos Ha, RAHEEM 130 [facility] [address] [place] [address] documented as of this [...] the findings below. Procedure Note Ana Epperson, PIPE CLEANING MACHINE OPERATOR - 06/05/2019 I have reviewed the pacemaker interrogation. I agree with the findingsbelow. Ana Epperson NP CV IMPLANTABLE CARDI AC DEVICE documented in this encounter Visit Diagnoses Not on filedocumented in this encounter Care Teams Supervisor Kennel Relationship Specialty Start Date End Date Bryant Crain MD [address] [place] [address] PCP - General 05/04/15 05/17/23 documented as of this encounter
--- OUTSIDE RECORDS SUMMARY | 2024-01-12 11:24 | XMS_ITS | Encounter Summary ---
Author Organization [facility] [place] [address] Care Team Providers Care Merchandise Flow Team Leader Name Role Phone Bryant Crain MD Primary Care Provider Reason for Visit * Consultation (Routine) - Specialty Diagnoses / Procedures Referred By Charo daniel Referred To Contact Dermatology Diagnoses Disorder of the skin and subcutaneous tissue, unspecified Skin Lesion of face Procedures Consult Franny Davison MD [address] [place] [address] Ed Geller MD [address] [place] [address] [place] [address] Referral ID Status Reason Start Date Expiration Date V isits Requested Visits Authorized [id number] 01/19/2018 01/19/2019 1 1 Encounter Details Date Type Department Care Team (Late st Contact Info) Description 04/15/2018 3:45 PM EDT Office Visit Dermatology at [address] [address] Ed Geller MD [address] [place] [address] [place] [address] [place] (actinic keratosis) Social History [...] and is exercising every day at the [employer]. She is no some new spots on her face. After our last 2014 course of 5-FU she was clear until just recently. Physical examination reveals a pleasant 67-year-old man who has very fair Turkish skin type II Peterson pigmentation and small [...] 4:00 PM EDT Office Visit Dermatology at [place] [address] [facility] [place] [address] Ed Geller MD 580 [facility] [place] [address] documented as of this encounter Visit Diagnoses Diagnosis AK (actinic keratosis) Actinic keratosis documented in this encounter Care Teams Merchandise Flow Team Leader Relationship Specialty Start Date End Date Bryant Crain MD [address] [place] [address] PCP - General Internal Medicine 04/15/18 documented as of this encounter
--- OUTSIDE RECORDS SUMMARY | 2024-01-12 11:24 | XMS_ITS | Encounter Summary ---
Author Organization [facility] Address [address] [place] [address] Care Team Providers Care Seed Sales Manager Name Role Phone Bryant Crain MD Primary Care Provider [phone] Reason for Referral * (Routine) - Closed Specialty Diagnoses / Procedures Referred By Charo daniel Referred To Contact Diagnoses Status post placement of implantable loop recorder Procedures CARDIAC IMPLANT CHECK - IN CLINIC Ana Epperson, RAHEEM [address] [facility] [address] [address] Referral ID Status Reason Start Date Expiration Date Visits Re quested Visits Authorized [id number] Closed 06/05/2019 1 1 Reason for Visit * Reason Comments Pacemaker/Device Check Medtronic Reveal Check Encounter Details Date Type Department Care Team (Latest Contact Info) Description 06/05/2019 8:45 EST Office Visit [facility] [address] [place] [address] Ana Epperson NP Status post placement of implantable loop recorder (Primary Dx); Paroxysmal atrial fibrillation (HCC-CMS); Current use of intermediate accountant 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; Hypomagnesemia; Mixed hyperlipidemia Social History Tobacco [...] this encounter Progress Notes * Ana Epperson, FREIGHT CLERK - 06/05/2019 0845 EST CC: Pacemaker/Device Check (Daticaltronic Reveal Check) HPI: Joanna Hart is a 69 y.o. year-old female I am seeing in follow up for her loop recorder/REVEAL device for cryptogenic stroke; Dr. Paul implanted 11/09/17. She had her CVA Fall of 2016; says she never had any symptoms. On December 24, 2018 she awoke with PND, went to hospital in [place] for 3 days; saysshe was very sick; confused, high white count; also had GI distress and UTI. Was told she was in AF. She ultimately had IV antibiotics and recovered. Has not felt dyspneic or had PND since. ROS: Denies: SOB, RODRIGUEZ, orthopnea, PND, palps., CP, wt. Gain, LE edema. Pt. Will be in [place] from To September 17. The rest if the pertinent 10 point review of systems is negative other than mentioned in HPI PMH: Patient Active Problem List Diagnosis ??? Cerebrovascular accident (CVA) (HCC-CMS) ??? Current use of intermediate accountant 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 ??? USP current use of insulin (HCC-CMS) ??? Dyslipidemia [...] SKIN: warm, dry, without lesions,rashes Device: Brand: [employer] REVEAL Implanted: 11/09/[address] Paul for cryptogenic stroke Mode: monitoring Generator: good Optivol: N/A Monitored Events: None Reprogramming: none Impression: Normal function with no arrhythmias The ASCVD Risk score (Chelsea DC Jr., et al., 2013) failed to calculate for the following reasons: The patient has a prior ME or stroke diagnosis DATA: imaging: EKG: @LASTEKG@ [...] TRIGLYCERIDES, HDL, LDL) Coagulation/Thromboembolic Current use of intermediate accountant 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 Patient is taking and tolerating apixaban [...] 06/05/2019 0935 ESTAssociated Problem(s): Current use of intermediate accountant 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 Patient is taking and tolerating apixaban without overt signs of bleeding. Will check labs including renal function today. 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 is taking and tolerating Eliquis without [...] Ancillary Procedure [facility] Cardiology - [facility] [place] [address] 03/08/2024 10:15 EDT Ancillary Procedure [facility] Cardiology [facility] [place] [address] 04/05/2024 10:00 EDT Ancillary Procedure [facility] [address] [place] [address] [phone] 04/05/2024 10:00 EDT Office Visit [facility] [address] [place] [address] [phone] Carlos Ha NP [address] [place] [address] [place] [phone] documented as of this encounter Procedures Procedure [...] the findings below. Procedure Note Ana Epperson, FREIGHT CLERK - 06/05/2019 I have reviewed the pacemaker interrogation. I agree with the findingsbelow. Ana Epperson NP CV IMPLANTABLE CARDI AC DEVICE * MAGNESIUM (06/05/2019 9:48 EST) Magnesium 1.90 1.7 - 2.8 mg/dL 06/05/2019 11:06 EST [facility] 06/05/2019 9:48 EST 06/05/2019 9:48 EST Narrative [facility] - 06/05/2019 11:06 EST Does PT Have a Latex Allergy? UNKNOWN Ana Epperson NP CHEMISTRY & BLOOD GA S ORDERABLES [facility] * (ABNORMAL) LIPID PROFILE (INCLUDES CHOLESTEROL, TRIGLYCERIDES, HDL, LDL) (06/05/2019 9:48 EST) Triglyceride 256 <150 mg/dL 06/05/2019 11:06 EST [facility] Comment: Adult: Normal: ?<150 mg/dl ? Borderline High: 150-199 mg/dl ? High: ?200-499 mg/dl ? Very High: >dn=598 Cholesterol 255(H) <200 mg/dL 06/05/2019 11:06 [facility] Comment: Acceptable: ??<200 Borderline: ??200-239 High: ?> or = 240 Chol/HDL Ratio 5.3(H) 0 - 4.5 06/05/2019 11:06 [facility] Comment: DESIRABLE RATIO IS LESS THAN 4.1 PATIENTS ARE CONSIDERED AT RISK: WOMEN RATIO >5 MEN RATIO >6 FASTING? - [facility] Yes 9 9:48 [facility] HDL 48 40 - 60 mg/dL 06/05/2019 11:06 [facility] Comment: ?? Reference Range Low: ? < 40 ??mg/dL Normal: ??40-60 mg/dL High: ?>= 60 mg/dL LDL CHOLESTEROL - [facility] 156(H) 60 - 100 mg/dL 06/05/2019 11:06 [facility] Non HDL Cholesterol 207 mg/dl 06/05/2019 11:06 [facility] Comment: Desirable: ?Less than 130 Borderline High: ??130-159 High: ? 160-189 Very High: ?Greater than or equal to 190 06/05/2019 9:48 EST 06/05/2019 9:48 EST Narrative [facility] - 06/05/2019 11:06 EST Does PT Have a Latex Allergy? UNKNOWN Ana Epperson NP CHEMISTRY & BLOOD GA S ORDERABLES [facility] * (ABNORMAL) COMPREHENSIVE METABOLIC PANEL (CMP) (06/05/2019 9:48 EST) Albumin % 4.4 3.4 - 4.9 g/dL 06/05/2019 11:06 [facility] ALKALINE PHOSPHATASE - [facility] 49 38 - 126 U/L 06/05/2019 11:06 [facility] BILIRUBIN TOTAL 0.6 0.2 - 1.3 mg/dL 06/05/2019 11:06 [facility] BUN - [facility] 17 10 - 26 mg/dL 06/05/2019 11:06 [facility] CALCIUM - [facility] 10.9(H) 8.5 - 10.5 mg/dL 06/05/2019 11:06 [facility] Chloride 105 96 - 110 mmol/L 06/05/2019 11:06 [facility] CO2 Total 25 22 - 32 mEq/L 06/05/2019 11:06 [facility] CREATININE 1.02 0.52 - 1.04 mg/dL 06/05/2019 11:06 [facility] eGFR 54 06/05/2019 11:06 [facility] Comment: Stage 3: Moderate renal impairment is defined as GFR 30-59 Multiply result by 1.210 for patients. eGFR calculated using the IDMS-traceable MDRD Study Equation. ??(effective 04/23/2014) Anion Gap 9 0 - 18 06/05/2019 11:06 [facility] GLUCOSE - [facility] 103(H) 70 - 100 mg/dL 06/05/2019 11:06 [facility] Potassium 5.1(H) 3.5 - 5.0 mEq/L 06/05/2019 11:06 [facility] Sodium 139 136 - 145 mEq/L 06/05/2019 11:06 [facility] TOTAL PROTEIN - [facility] 7.6 6.2 - 8.2 gm/dL 06/05/2019 11:06 [facility] SGOT/AST - [facility] 31 14 - 36 U/L 06/05/2019 11:06 [facility] SGPT/ALT - [facility] 28 9 - 52 U/L 9 11:06 [facility] 06/05/2019 9:48 EST 06/05/2019 9:48 EST Narrative [facility] - 06/05/2019 11:06 EST Does PT Have a Latex Allergy? UNKNOWN Ana Epperson EARTHMOVING LABOURER CHEMISTRY & BLOOD GA S ORDERABLES [facility] documented in this encounter Visit Diagnoses Diagnosis Status post placement of implantable loop recorder- Primary Other specified cardiac device in situ Paroxysmal atrial fibrillation (HCC-CMS) Atrial fibrillation Current use of assisted 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 Long-term (current) use of anticoagulants Hypomagnesemia Disorders of magnesium metabolism Mixed hyperlipidemia documented in this encounter Care Teams Seed Sales Manager Relationship Specialty Start Date End Date Bryant Crain MD [address] [place] [address] PCP - General 05/04/15 05/17/23 documented as of this encounter
--- OUTSIDE RECORDS SUMMARY | 2024-01-12 11:24 | XMS_ITS | Encounter Summary ---
[place] [address] Care Team Providers Care Cast Shell Grinder Name Role Phone Franny Davison MD Primary Care Provider [phone] Reason for Referral * Diagnostic Test (Routine) - Closed Specialty Diagnoses / Procedures Referred By Contac t Referred To Contact Radiology Diagnoses Cerebrovascular accident (CVA), unspecified mechanism Procedures MRI Cardiac Morph Func wwo Contrast Justin Squires MD [address] [place] [address] [place] [address] Referral ID Status Reason Start Date Expiration Date V isits Requested Visits Authorized [id number] Closed Specialty Service Requested 05/20/2017 05/20/2018 1 1 Reason for Visit * Diagnostic Test (Routine) - Closed Specialty Diagnoses / Procedures Referred By Contac t Referred To Contact Radiology Diagnoses Cerebrovascular accident (CVA), unspecified mechanism Procedures MRI Cardiac Morph Func wwo Contrast Justin Squires MD [address] [place] [address] [place] [address] Referral ID Status Reason Start Date Expiration Date V isits Requested Visits Authorized [id number] Closed Specialty Service Requested 05/20/2017 05/20/2018 1 1 Encounter Details Date Type Department Care Team (Late st Contact Info) Description 05/27/2017 8:28 AM EST - 05/27/2017 11:59 PM EST Hospital [facility] [place] [address] Justin Squires MD [address] [place] [address] Cerebrovascular accident (CVA), unspecified mechanism Discharge Disposition: [...] EDT Office Visit [facility] at [place] [address] [place] [address] Ed Geller MD [address] [place] [address] documented as of this encounter Procedures Procedure [...] RV Ejection Fraction: 68.4% Procedure Note Otilia Treviño MD - 05/27/2017 EXAMINATION: MR cardiac for [...] mLs documented in this encounter Care Teams Cast Shell Grinder Relationship Specialty Start Date End Date Franny Davison MD [address] [place] [address] PCP - General 05/13/10 04/14/18 documented as of this encounter
--- OUTSIDE RECORDS SUMMARY | 2024-01-12 11:24 | XMS_ITS | Encounter Summary ---
Author Organization [facility] Address [address] [place] [address] Care Team Providers Care Residential Sales Rep Name Role Phone Bryant Crain MD Primary Care Provider [phone] Encounter Details Date Type Department Care Team (Late st Contact Info) Description 09/14/[address] [facility] Clinic [address] [place] [address] Ana Epperson, RAHEEM Status post placement [...] EDT Ancillary Procedure [facility] Cardiology - [facility] [place] [address] 03/08/2024 10:15 EDT Ancillary Procedure [facility] Cardiology - [facility] [address] [place], [place] [id number] 04/05/2024 10:00 EDT Ancillary Procedure [facility] [address] [place] [address] 04/05/2024 10:00 EDT Office Visit [facility] [address] [place] [address] 980802 Carlos Ha NP [address] [place] [address] documented as of this encounter [...] situ documented in this encounter Care Teams Residential Sales Rep Relationship Specialty Start Date End Date Bryant Crain MD [address] [place] [address] PCP - General 05/04/15 05/17/23 documented as of this encounter
--- OUTSIDE RECORDS SUMMARY | 2024-01-12 11:24 | XMS_ITS | Encounter Summary ---
Author Organization [facility] Address [address] [place] [address] Care Team Providers Care Promotional Advertising Assistant Name Role Phone Bryant Crain MD Primary Care Provider [phone] Reason for Visit * Reason Onset Date Comments Cardiac Testing 07/05/2019 Encounter Details Date Type Department Care Team (Late st Contact Info) Description 07/05/2019 Telephone [facility] - [facility] Cardiology Clinic [address] [place] [address] Ana Epperson, TOP IRONER Cardiac Testing Social History Tobacco Use Types [...] results per Ana. She is currently in [place] and did not get my previous message [...] 07/18/2019 1027 EST Pt was IP at [facility]. She had an ECHO done while IP and is looking for Ana to review and let her know how compares to last ECHO done locally. documented in this encounter Plan of Treatment Upcoming Encounters Date Type Department Care Team (Late st Contact Info) Description 03/08/2024 9:30 EDT Ancillary Procedure [facility] Cardiology - [place] [address] [place] [address] 03/08/2024 10:15 EDT Ancillary Procedure [facility] Cardiology [place] [address] [place] [address] 04/05/2024 10:00 EDT Ancillary Procedure [facility] [address] [place] [address] 04/05/2024 10:00 EDT Office Visit [facility] [address] [place] [address] Carlos Ha NP [address] [place] [address] [address] [place] [phone] documented as of this encounter Visit Diagnoses Not on filedocumented in this encounter Care Teams Promotional Advertising Assistant Relationship Specialty Start Date End Date Bryant Crain MD [address] [place], [place] [id number] PCP - General 05/04/15 05/17/23 documented as of this encounter
--- OUTSIDE RECORDS SUMMARY | 2024-01-12 11:24 | XMS_ITS | Encounter Summary ---
Author Organization [facility] Address [facility] [place] [address] Care Team Providers Care Die Sizer Name Role Phone Franny Davison MD Primary Care Provider [phone] Reason for Visit * Reason Comments Diabetes Encounter Details Date Type Department Care Team (Late st Contact Info) Description 01/12/2017 3:00 PM EDT Office [place] [address] Shikha Poole APRN [facility] [facility] [place] [address] Type 2 diabetes mellitus without complication, without [...] 4:00 PM EDT Office Visit Dermatology at [place] [address] [place] [phone] Ed Geller MD [address] DERMATOLOGY [place], [place] [phone] documented as of this encounter Results * (ABNORMAL) U Albumin/Cre Ratio (01/12/2017 2:17 PM EDT) Alb/Cr Ratio, Random 253(H) 0 - 29 mcg/mg Cr [facility] Comment: Reference Ranges: <30 mcg/mg: Normal [...] 362 U Albumin Conc, Random 243.2 mg/L [facility] U Creatinine 96 mg/dL [facility] Urine specimen (specimen) 01/12/2017 2:17 PM EDT 01/12/2017 2:23 PM EDT Narrative Resulting Agency Comment Spec In Lab Shikha Poole INVENTORY SPECIALIST MANAGER URINE ORDERABLES [facility] [place] [address] * LDL Cholesterol, Direct (01/12/2017 2:17 PM EDT) LDL Chol Direct 142 <=190 mg/dL [facility] Blood specimen (specimen) 01/12/2017 2:17 PM EDT 01/12/2017 2:22 PM EDT Narrative Resulting Agency Comment Spec In Lab Shikhaantonio Brashera INVENTORY SPECIALIST MANAGER CHEMISTRY ORDERABLE S Performing Organization Address City/[facility]/ZIP Co de Phone Number [facility] [place] [address] * (ABNORMAL) HDL/Cholesterol Profile (01/12/2017 2:17 PM EDT) Chol, Total 245(H) <=239 mg/dL [facility] HDL 40 >=40 mg/dL [facility] Chol/HDL Ratio 6.1 ratio [facility] Chol/HDL Interpretation See Note [facility] Comment: Lipid management should be guided by a patient? s ASCVD risk, goals and preferences. ACC/AHA Guidelines recommend high intensity statin if clinical ASCVD or LDL greater than or equal to 190 mg/dL. http://Flapshare.com/NPA-VMK-Vwzmxteja Measure LDL if Total Cholesterol minus HDL Cholesterol is greater than 220 mg/dL. Adults aged 40-75 with LDL 70-189 mg/dL should have their 10 year ASCVD risk estimated with the ACC/AHA ASCVD risk printing estimator http://tools.acc.org/UGTBG-Zepd-Tbenertfw/ Statin should be discussed if risk greater [...] Agency Comment Spec In Lab Shikha Poole INVENTORY SPECIALIST MANAGER CHEMISTRY ORDERABLE S Performing Organization Address City/[facility]/ZIP Co de Phone Number [facility] [place] [address] * (ABNORMAL) Hemoglobin A1c (01/12/2017 2:17 PM EDT) Hemoglobin A1C 7.4(H) 4.3 - 5.6 % [facility] Comment: Reference Range: 4.3 - 5.6% [...] into estimated average glucose values. ??Diabetes Care 2008:31(8):[phone]. Blood specimen (specimen) 01/12/2017 2:17 PM EDT 01/12/2017 2:22 PM EDT Narrative Resulting Agency Comment Spec In Lab Shikha Poole APRN CHEMISTRY ORDERABLE S [facility] [place] [address] * (ABNORMAL) Basic Metabolic Panel (non-fasting) (01/12/2017 2:17 PM EDT) Glucose Lvl 212(H) 65 - 199 mg/dL [facility] Comment:Diabetes: >=200 mg/d L plus symptoms BUN 17 8 - 18 mg/dL [facility] Creatinine 0.88 0.70 - 1.20 mg/dL [facility] Comment: Please note that the pediatric reference intervals supplied above were not validated at [facility]. Results from pediatric patients should be interpreted in conjunction to the patient's age, height and muscle mass. Sodium 143 135 - 145 mmol/L [facility] Potassium 4.7 3.5 - 5.0 mmol/L [facility] Comment: Please note: ??Patients with WBC >100,000 may have falsely elevated Potassium levels. ??For accurate Potassium quantification in these patients send serum separator tube (gold top) for subsequent determinations. ??Contact the Clinical Chemistry Laboratory if there are any questions. Chloride 105 98 - 107 mmol/L [facility] CO2 24 22 - 31 mmol/L [facility] Anion Gap 14 5 - 15 mmol/L [facility] Calcium 10.9(H) 8.5 - 10.5 mg/dL [facility] Estimated GFR >60 >=60 [facility] Comment: This estimated GFR (eGFR) [...] the following links into your internet browser. [email or web address] Blood specimen (specimen) 01/12/2017 2:17 PM EDT 01/12/2017 2:22 PM EDT Narrative Resulting Agency Comment Spec In Lab Shikha Emily Juliustayflorina INVENTORY SPECIALIST MANAGER CHEMISTRY ORDERABLE S [facility] [place] [address] documented in this encounter Visit Diagnoses Diagnosis Type 2 diabetes mellitus without complication, without long-term current use of insulin documented in this encounter Care Teams Die Sizer Relationship Specialty Start Date End Date Franny Davison MD [address] [place] [address] PCP - General 05/13/10 04/14/18 documented as of this encounter
--- OUTSIDE RECORDS SUMMARY | 2024-01-12 11:24 | XMS_ITS | Clinical Summary ---
Author Organization [facility] [place] [address] Care Team Providers Care Mill Dresser Name Role Phone Bryant Crain MD Primary Care Provider [phone] Allergies Active Allergy Reactions Criticality Noted Date [...] 9:05 PM EDT [place] [address] Telehealth, Neurology Bilateral leg numbness; [...] 01/12/2017 3:10 PM EDT Plan of Treatment Upcoming Encounters Date Type Department Care Team (Late st Contact Info) Description 01/14/2024 4:00 PM EDT Office Visit Dermatology at [place] [address] [place] [phone] Ed Geller MD 580 [facility] [place] [address] Health Maintenance Due Date Last Done Comments [...] 01/12/2017 Lipid Screening 01/12/2022 01/12/2017 Covid-19 Vaccine (2022-2 4 season) 2023 03/25/2023, 05/07/2022, 11/03/2021, Additional [...] Random 253(H) 0 - 29 mcg/mg Cr [facility] Comment: Reference Ranges: <30 mcg/mg: [...] 362 U Albumin Conc, Random 243.2 mg/L [facility] U Creatinine 96 mg/dL [facility] Urine specimen (specimen) 01/12/2017 2:17 PM EDT 01/12/2017 2:23 PM EDT Narrative Resulting Agency Comment Spec In Lab Shikha Emily Sameeraa PATIENT INFORMATION COORDINATOR URINE ORDERABLES Performing Organization Address City/[facility]/ZIP Co de Phone Number [facility] [place] [address] * (ABNORMAL) HDL/Cholesterol Profile (01/12/2017 2:17 PM EDT) Chol, Total 245(H) <=239 mg/dL [facility] HDL 40 >=40 mg/dL [facility] Chol/HDL Ratio 6.1 ratio [facility] Chol/HDL Interpretation See Note [facility] Comment: Lipid management should be guided by a patient? s ASCVD risk, goals and preferences. ACC/AHA Guidelines recommend high intensity statin if clinical ASCVD or LDL greater than or equal to 190 mg/dL. http://[employer].com/CDI-BAQ-Ufxghephg Measure LDL if Total Cholesterol minus HDL Cholesterol is greater than 220 mg/dL. Adults aged 40-75 with LDL 70-189 mg/dL should have their 10 year ASCVD risk estimated with the ACC/AHA ASCVD risk real estate professional http://tools.acc.org/EMHDD-Ocvc-Vujdtjblj/ Statin should be discussed if risk greater [...] Agency Comment Spec In Lab Shikha Emily Sameeraa PATIENT INFORMATION COORDINATOR CHEMISTRY ORDERABLE S Performing Organization Address City/[facility]/ZIP Co de Phone Number [facility] [place] [address] * (ABNORMAL) Hemoglobin A1c (01/12/2017 2:17 PM EDT) Hemoglobin A1C 7.4(H) 4.3 - 5.6 % [facility] Comment: Reference Range: 4.3 - [...] 1, S67-74 Est Avg Gluc 166 mg/dL [facility] Comment: eAG equivalents for HbA1c percentages: [...] into estimated average glucose values. ??Diabetes Care 2008:31(8):4440-7227. Blood specimen (specimen) 01/12/2017 2:17 PM EDT 01/12/2017 2:22 PM EDT Narrative Resulting Agency Comment Spec In Lab Shikha Poole APRN CHEMISTRY ORDERABLE S [facility] [place] [address] * (ABNORMAL) Basic Metabolic Panel (non-fasting) (01/12/2017 2:17 PM EDT) Glucose Lvl 212(H) 65 - 199 mg/dL [facility] Comment:Diabetes: >=200 mg/d L plus symptoms BUN 17 8 - 18 mg/dL [facility] Creatinine 0.88 0.70 - 1.20 mg/dL [facility] Comment: Please note that the pediatric reference intervals supplied above were not validated at [facility]. Results from pediatric patients should be interpreted in conjunction to the patient's age, height and muscle mass. Sodium 143 135 - 145 mmol/L [facility] Potassium 4.7 3.5 - 5.0 mmol/L [facility] Comment: Please note: ??Patients with WBC >100,000 may have falsely elevated Potassium levels. ??For accurate Potassium quantification in these patients send serum separator tube (gold top) for subsequent determinations. ??Contact the Clinical Chemistry Laboratory if there are any questions. Chloride 105 98 - 107 mmol/L [facility] CO2 24 22 - 31 mmol/L [facility] Anion Gap 14 5 - 15 mmol/L [facility] Calcium 10.9(H) 8.5 - 10.5 mg/dL [facility] Estimated GFR >60 >=60 [place] [...] the following links into your internet browser. http://[employer].The Old Reader/DHnkdep http://MeMeMe/DHMCnkf Blood specimen (specimen) 01/12/2017 2:17 PM EDT 01/12/2017 2:22 PM EDT Narrative Resulting Agency Comment Spec In Lab Shikha Poole PATIENT INFORMATION COORDINATOR CHEMISTRY ORDERABLE S [facility] [place] [address] from Last 3 Months or Most Recently Relevant to Health Maintenance Care Teams Mill Dresser Relationship Specialty Start Date End Date Bryant Crain MD [address] [place], [place] [id number] PCP - General Internal Medicine 04/15/18
--- OUTSIDE RECORDS SUMMARY | 2024-01-12 11:24 | XMS_ITS | Encounter Summary ---
Author Organization [facility] Address [address] [place] [address] Care Team Providers Care Offset Lithographic Press Setter Name Role Phone Bryant Crain MD Primary Care Provider [phone] Carlos Ha SECURITY SUPPORT ANALYST Unavailable [phone] Elba Jett MD Primary Care Provider [phone] Encounter Details Date Type Department Care Team (Late st Contact Info) Description 11/06/2019 Lab Requisition [facility] Pathology & Laboratory Medicine - [facility] [address] [place] [address] Rivas Peterson, [address] HERR[place] [address] [place] [address] Neoplasm of unspecified behavior of bone, soft [...] 03/08/2024 9:30 EDT Ancillary Procedure [facility] Cardiology - [place] [address] [place], [place] [id number] 03/08/2024 10:15 EDT Ancillary Procedure [facility] [place]iology [place] [address] 04/05/2024 10:00 EDT Ancillary Procedure [facility] [address], [place] [id number] 04/05/2024 10:00 EDT Office Visit [facility] [address] [place] [address] Carlos Ha NP [address] [facility] [address] [place] [address] documented as of this encounter [...] ed, transected at base. 11/07/2019 9:52 T [facility] at 0952 Attestation By the signature below, the attending physician certifies that they have 1) personally conducted a gross and/or microscopic examination of the described specimen(s), and/or personally interpreted the results of laboratory testing of the described specimen(s), and 2) personally rendered or confirmed the above diagnosis. 11/07/2019 9:52 T [facility] at 0952 Clinical History Enlarging non-healing black skin lesion 11/07/2019 9:52 [facility] Gross Description A. Received in formalin labelled with proper patient identification (initials S, D) and right nasal ala is a 1.3 x 1.0 x 0.8 cm ovoid excision of firm castillo-white to focally black skin. The margin is inked. The specimen is trisected and entirely submitted in A1. Mayra Cody 11/06/2019 15:40 11/07/2019 9:52 EDT [facility] Scanned Images 11/07/2019 9:52 EDT [facility] Tissue TISSUE SPECIMEN FROM SKIN / Unknown 11/03/2019 13:15 EDT 11/06/2019 15:35 EDT Rivas Peterson DO PATHOLOGY ORDER PAVEL [facility] [address] [place] [address] documented in this encounter Visit Diagnoses Diagnosis Neoplasm of unspecified behavior of bone, soft tissue, and skin documented in this encounter Care Teams Offset Lithographic Press Setter Relationship Specialty Start Date End Date Bryant Crain MD [address] [place] [address] PCP - General 05/04/15 05/17/23 Elba Jett MD [address] [place] [phone] PCP - General Family Medicine - Primary Care 05/18/23 Carlos Ha NP [address] [place] [address] [phone] Consulting Clinician Cardiovascular Disease 09/14/21 documented as of this encounter
--- OUTSIDE RECORDS SUMMARY | 2024-01-12 11:24 | XMS_ITS | Encounter Summary ---
[place] [address] Care Team Providers Care Division Engineer Name Role Phone Bryant Crain MD Primary Care Provider Reason for Referral * Diagnostic Test (Routine) - Closed Specialty Diagnoses / Procedures Referred By Contac t Referred To Contact Radiology Diagnoses Parkinson's disease Procedures NM Brain Imaging for Parkinsons Disease Zandra Paredes MD [facility] [address] [place] [address] [place] [address] Referral ID Status Reason Start Date Expiration Date V isits Requested Visits Authorized [id number] Closed Specialty Service Requested 08/07/2021 02/04/2023 1 1 Reason for Visit * Diagnostic Test (Routine) - Closed Specialty Diagnoses / Procedures Referred By Contac t Referred To Contact Radiology Diagnoses Parkinson's disease Procedures NM Brain Imaging for Parkinsons Disease Zandra Paredes MD [facility] [address] [place] [address] [place] [address] Referral ID Status Reason Start Date Expiration Date V isits Requested Visits Authorized [id number] Closed Specialty Service Requested 08/07/2021 02/04/2023 1 1 Encounter Details Date Type Department Care Team (Late st Contact Info) Description 10/21/2021 8:50 AM EDT - 10/21/2021 8:51 AM EDT Hospital Encounter [place] [address] Zandra Paredes MD [facility] [address] [address] Parkinson's disease Discharge Disposition: Home Social History [...] PEN NEEDLE UF MINI) 31 gauge x 316 NeedleIndications:Hermelinda betes mellitus without complication Inject victoza [...] 4:00 PM EDT Office Visit Dermatology at [place] [address] [place] [address] Ed Geller MD [address] [facility] [place] [address] documented as of this encounter Procedures Procedure [...] who have questions please contact the health health care facility administrator that requested your imaging first. ? Electronically signed by: Oneal Barroso MD, [facility] ([phone]), at 10/22/2021 3:27 PM Narrative 10/22/2021 3:27 [...] patients who have questions please contactthe health health care facility administrator that requested your imaging first. Electronically signed by: Oneal Barroso MD, [facility]([phone]), at 10/22/2021 3:27 PM Zandra Paredes MD IMG NM ORDERABLES documented in this encounter Visit Diagnoses Diagnosis Parkinson's disease Paralysis agitans documented in this encounter Administered Medications Inactive Administered Medications - up to 3 most recent administrations Medication Order MAR Action Action Date Dose Rate Site strong iodine (Lugols) 5% oral liquid 0.8 mL 0.8 mL, Oral, ONCE, 1 dose, On Tu10/21/21 at 0945, Radiology Contrast, Routine Given 10/21/2021 9:15 AM EDT 0.8 mLs documented in this encounter Care Teams Division Engineer Relationship Specialty Start Date End Date Bryant Crain MD [address] [place] [address] PCP - General Internal Medicine 04/15/18 documented as of this encounter
--- OUTSIDE RECORDS SUMMARY | 2024-01-12 11:24 | XMS_ITS | Encounter Summary ---
[place] [address] Care Team Providers Care Candy Waffle Assembler Name Role Phone Bryant Crain MD Primary Care Provider [phone] Reason for Visit * Reason Comments Follow-up Skin Check Encounter Details Date Type Department Care Team (Late st Contact Info) Description 04/17/2019 10:30 AM EDT Office Visit Dermatology at [address] [address] Ed Geller MD 580 [facility] [place] [address] [place] (actinic keratosis) Social History Tobacco Use [...] way. She exercises every day at the [employer] swimming pool. She is no some new [...] 4:00 PM EDT Office Visit Dermatology at [address] [address] Ed Geller MD 580 [facility] [place] [address] documented as of this encounter Visit Diagnoses Diagnosis AK (actinic keratosis) Actinic keratosis documented in this encounter Care Teams Candy Waffle Assembler Relationship Specialty Start Date End Date Bryant Crain MD [address] [place] [address] PCP - General Internal Medicine 04/15/18 documented as of this encounter
--- OUTSIDE RECORDS SUMMARY | 2024-01-12 11:24 | XMS_ITS | Encounter Summary ---
[place] [address] Care Team Providers Care Chief Lifestyle Officer Name Role Phone Franny Davison MD Primary Care Provider [phone] Encounter Details Date Type Department Care Team (Latest Contact Info) Description 01/12/2017 2:00 PM EDT Laboratory Appointment Lab [address] [place] [phone] Type 2 diabetes mellitus without complication, without [...] 4:00 PM EDT Office Visit Dermatology at [place] [address] [facility] [place] [address] Ed Geller MD [address] [facility] [place] [address] documented as of this encounter Procedures Procedure [...] Random 253(H) 0 - 29 mcg/mg Cr [facility] Comment: Reference Ranges: <30 mcg/mg: [...] 362 U Albumin Conc, Random 243.2 mg/L [facility] U Creatinine 96 mg/dL [facility] Urine specimen (specimen) 01/12/2017 2:17 PM EDT 01/12/2017 2:23 PM EDT Narrative Resulting Agency Comment Spec In Lab Shikha Poole APRN URINE ORDERABLES [facility] [place] [address] * LDL Cholesterol, Direct (01/12/2017 2:17 PM EDT) LDL Chol Direct 142 <=190 mg/dL [facility] Blood specimen (specimen) 01/12/2017 2:17 PM EDT 01/12/2017 2:22 PM EDT Narrative Resulting Agency Comment Spec In Lab Shikha Poole ASSET COORDINATOR CHEMISTRY ORDERABLE S Performing Organization Address City/[facility]/ZIP Co de Phone Number [facility] [place] [address] * (ABNORMAL) HDL/Cholesterol Profile (01/12/2017 2:17 PM EDT) Chol, Total 245(H) <=239 mg/dL [facility] HDL 40 >=40 mg/dL [facility] Chol/HDL Ratio 6.1 ratio [facility] Chol/HDL Interpretation See Note [facility] Comment: Lipid management should be guided by a patient? s ASCVD risk, goals and preferences. ACC/AHA Guidelines recommend high intensity statin if clinical ASCVD or LDL greater than or equal to 190 mg/dL. http://[employer]oL[employer].com/KHP-GGZ-Hmodoatbt Measure LDL if Total Cholesterol minus HDL Cholesterol is greater than 220 mg/dL. Adults aged 40-75 with LDL 70-189 mg/dL should have their 10 year ASCVD risk estimated with the ACC/AHA ASCVD risk platemaker http://tools.acc.org/JGGNH-Gofl-Vvpxufvcg/ Statin should be discussed if risk greater [...] Agency Comment Spec In Lab Shikha Poole ASSET COORDINATOR CHEMISTRY ORDERABLE S [facility] [place] [address] * (ABNORMAL) Hemoglobin A1c (01/12/2017 2:17 PM EDT) Hemoglobin A1C 7.4(H) 4.3 - 5.6 % [facility] Comment: Reference Range: 4.3 - [...] Mellitus, Diabetes Care 2013; 36: Suppl. 1, S67-97 Est Avg Gluc 166 mg/dL [facility] [...] into estimated average glucose values. ??Diabetes Care 2008:31(8):6638-7961. Blood specimen (specimen) 01/12/2017 2:17 PM EDT 01/12/2017 2:22 PM EDT Narrative Resulting Agency Comment Spec In Lab Shikha Poole JUSITN CHEMISTRY ORDERABLE S [facility] [place] [address] * (ABNORMAL) Basic Metabolic Panel (non-fasting) (01/12/2017 2:17 PM EDT) Glucose Lvl 212(H) 65 - 199 mg/dL [facility] Comment:Diabetes: >=200 mg/d L plus symptoms BUN 17 8 - 18 mg/dL [facility] Creatinine 0.88 0.70 - 1.20 mg/dL [facility] Comment: Please note that the pediatric reference intervals supplied above were not validated at [facility]. Results from pediatric patients should be interpreted in conjunction to the patient's age, height and muscle mass. Sodium 143 135 - 145 mmol/L [facility] Potassium 4.7 3.5 - 5.0 mmol/L [facility] Comment: Please note: ??Patients with WBC >100,000 may have falsely elevated Potassium levels. ??For accurate Potassium quantification in these patients send serum separator tube (gold top) for subsequent determinations. ??Contact the Clinical Chemistry Laboratory if there are any questions. Chloride 105 98 - 107 mmol/L [facility] CO2 24 22 - 31 mmol/L [facility] Anion Gap 14 5 - 15 mmol/L [facility] Calcium 10.9(H) 8.5 - 10.5 mg/dL [facility] Estimated GFR >60 >=60 [facility] Comment: This estimated GFR (eGFR) [...] the following links into your internet browser. http://[employer]/DHnkdep http://[employer]/DHMCnkf Blood specimen (specimen) 01/12/2017 2:17 PM EDT 01/12/2017 2:22 PM EDT Narrative Resulting Agency Comment Spec In Lab Shikha Poole ASSET COORDINATOR [place] [address] documented in this encounter Visit Diagnoses Diagnosis Type 2 diabetes mellitus without complication, without long-term current use of insulin documented in this encounter Care Teams Chief Lifestyle Officer Relationship Specialty Start Date End Date Franny Davison MD [address] [place] [address] PCP - General 05/13/10 04/14/18 documented as of this encounter
--- OUTSIDE RECORDS SUMMARY | 2024-01-12 11:24 | XMS_ITS | Encounter Summary ---
Author Organization [place] [address] Care Team Providers Care Regional Telecommunications Specialist Name Role Phone Bryant Crain MD Primary Care Provider [phone] Encounter Details Date Type Department Care Team (Late st Contact Info) Description 09/14/2022 Telephone Cardiology at [address] [address] Eric Rutledge MD [facility] [place] [address] Social History Tobacco Use Types Packs/Day Years [...] PM Referring Provider: Dr. Ferrer Patient Location: [facility] Past Medical History: HTN DM Presenting Symptoms per OSH: 72F with history as above presented to [facility] with RLE heaviness. - Unclear history but [...] 4:00 PM EDT Office Visit Dermatology at [place] [address] [place] [phone] Ed Geller MD [address] [facility] [place] [address] documented as of this encounter Visit Diagnoses Not on filedocumented in this encounter Care Teams Regional Telecommunications Specialist Relationship Specialty Start Date End Date Bryant Crain MD [address] [place] [address] PCP - General Internal Medicine 04/15/18 documented as of this encounter
--- OUTSIDE RECORDS SUMMARY | 2024-01-12 11:24 | XMS_ITS | Encounter Summary ---
Author Organization [facility] Address [address] [place] [address] Care Team Providers Care Portfolio Accountant Name Role Phone Unavailable Primary Care Provider Unavailabl e Encounter Details Date Type Department Care Team (Late st Contact Info) Description 11/19/2004 Results Only [facility] [place] [facility] [address] [place] [address] Raji Cook MD [address] [place] [phone] Social History Tobacco Use Types Packs/Day Years Used Date Smoking Tobacco: Never Assessed Sex and Gender Information Value Date Recorded Sex Assigned at Not on file Gender Identity Female 06/01/2019 10:00 EST Sexual Orientation Not on file documented as of this encounter Plan of Treatment Upcoming Encounters Date Type Department Care Team (Late st Contact Info) Description 03/08/2024 9:30 EDT Ancillary Procedure [facility] [place] [address] 03/08/2024 10:15 EDT Ancillary Procedure [facility] Cardiology - [facility] [place] [address] 04/05/2024 10:00 EDT Ancillary Procedure [facility] [address] [place] [address] 04/05/2024 10:00 EDT Office Visit [facility] [address] [place] [address] Carlos Ha NP [address] [facility] [address] [place] [address] documented as of this encounter [...] ? TANNER, JOANNA ? Accession #: ? [id number] ? : ? 1950 (Age: 54) ??F [...] Cook MD PATHOLOGY ORDERABLES [facility] [address] [place] [address] documented in this encounter Visit Diagnoses Not on filedocumented in this encounter
--- OUTSIDE RECORDS SUMMARY | 2024-01-12 11:24 | XMS_ITS | Encounter Summary ---
[place] [address] Care Team Providers Care Photovoltaic Power Systems Engineer Name Role Phone Bryant Crain MD Primary Care Provider Reason for Visit * Diagnostic Test (Routine) - Closed Specialty Diagnoses / Procedures Referred By Charo daniel Referred To Contact Radiology Diagnoses Parkinson's disease Procedures NM Brain Imaging for Parkinsons Disease Zandra Paredes MD [facility] [address] [place] [address] [place] [address] Referral ID Status Reason Start Date Expiration Date V isits Requested Visits Authorized [id number] Closed Specialty Service Requested 08/07/2021 02/04/2023 1 1 Encounter Details Date Type Department Care Team (Late st Contact Info) Description 10/21/2021 8:52 AM EDT - 10/21/2021 12:58 PM EDT Hospital Encounter [place] [address] Zandra Paredes MD [facility] [address] [place], [place] [id number] Discharge Disposition: Home Social History Tobacco Use [...] 4:00 PM EDT Office Visit Dermatology at [place] [address] [place] [address] Ed Geller MD [address] [facility] [address] DERMATOLOGY [place], [place] [id number] documented as of this encounter Procedures Procedure [...] Arm documented in this encounter Care Teams Photovoltaic Power Systems Engineer Relationship Specialty Start Date End Date Bryant Crain MD [address] [place] [address] PCP - General Internal Medicine 04/15/18 documented as of this encounter
--- OUTSIDE RECORDS SUMMARY | 2024-01-12 11:24 | XMS_ITS | Encounter Summary ---
Author Organization [facility] Address [address] [place] [address] Care Team Providers Care Wet Milling Wheel Operator Name Role Phone Unavailable Primary Care Provider Unavailabl e Encounter Details Date Type Department Care Team (Late st Contact Info) Description 03/02/2001 Results Only [facility] Family Medicine [address] [address] Franny Davison MD [address] [place] [phone] Social History Tobacco Use Types Packs/Day Years Used Date Smoking Tobacco: Never Assessed Sex and Gender Information Value Date Recorded Sex Assigned at Not on file Gender Identity Female 06/01/2019 10:00 EST Sexual Orientation Not on file documented as of this encounter Plan of Treatment Upcoming Encounters Date Type Department Care Team (Late st Contact Info) Description 03/08/2024 9:30 EDT Ancillary Procedure [facility] Cardiology - [place] [address] 03/08/2024 10:15 EDT Ancillary Procedure [facility] Cardiology - [place] [address] 04/05/2024 10:[address] [facility] [address] [place] [address] 04/05/2024 10:[address] [facility] [address] [place] [address] Carlos Ha NP 130 [facility] [address] [place] [address] documented as of this encounter [...] ? GAUTAM, JOANNA ? Accession #: ? [id number] : ? 1950 (Age: 50) ??F ?Collect [...] Davison MD PATHOLOGY ORDERABLES Performing Organization Address City/State/[facility] Co de Phone Number SILVESTRE YANG [address] [place] [address] documented in this encounter Visit Diagnoses Not on filedocumented in this encounter
--- OUTSIDE RECORDS SUMMARY | 2024-01-12 11:24 | XMS_ITS | Encounter Summary ---
Author Organization [facility] Address [facility] [place] [address] Care Team Providers Care Calibration Specialist Name Role Phone Bryant Crain MD Primary Care Provider Encounter Details Date Type Department Care Team (Late st Contact Info) Description 09/14/2022 Telephone Cardiology at [address] [address] Jt Pedro PA [facility] [place] [address] Social History Tobacco Use Types Packs/Day Years [...] 4:00 PM EDT Office Visit Dermatology at [address] [phone] Ed Geller MD [address] [place] [address] documented as of this encounter Visit Diagnoses Not on filedocumented in this encounter Care Teams Calibration Specialist Relationship Specialty Start Date End Date Bryant Crain MD [address] [place] [address] PCP - General Internal Medicine 04/15/18 documented as of this encounter
--- OUTSIDE RECORDS SUMMARY | 2024-01-12 11:24 | XMS_ITS | Encounter Summary ---
Author Organization [facility] Address [facility] [place] [address] Care Team Providers Care Spinning Room Worker Name Role Phone Bryant Crain MD Primary Care Provider [phone] Encounter Details Date Type Department Care Team (Late st Contact Info) Description 11/02/2022 Ancillary Procedure [place] [address] Milagros Joseph MD [facility] [place] [address] Social History Tobacco Use Types Packs/Day Years [...] 4:00 PM EDT Office Visit Dermatology at [place] [address] [place] [address] Ed Geller MD 580 [facility] [place] [address] documented as of this encounter Procedures Procedure Name Priority Date/Time Associated Diagnosis Comments FILM LIBRARY STORAGE ONLY CT ABDOMEN AND PELVIS Routine 11/02/2022 12:00 AM EDT documented in this encounter Results * Film Library- Storage Only CT Abdomen & Pelvis (11/02/2022 12:00 AM EDT) Narrative [facility][NOTE 3] - 11/11/2022 7:36 AM EDT This exam is auto-finalizing. It's purpose is for storage only. Milagros Joseph MD IMG FILM LIBRARY ORD ERABLES Performing Organization Address City/State/[facility] Co de Phone Number [place], [place] documented in this encounter Visit Diagnoses Not on filedocumented in this encounter Care Teams Spinning Room Worker Relationship Specialty Start Date End Date Bryant Crain MD [address] [place] [address] PCP - General Internal Medicine 04/15/18 documented as of this encounter
--- OUTSIDE RECORDS SUMMARY | 2024-01-12 11:24 | XMS_ITS | Encounter Summary ---
Author Organization [facility] [place] [address] Care Team Providers Care Brush Holder Inspector Name Role Phone Franny Davison MD Primary Care Provider [phone] Encounter Details Date Type Department Care Team (Late st Contact Info) Description 01/07/2017 [place] [phone] Queta Arcos LPN Social History Tobacco Use [...] they change my meds Call transferred to secretary office clerk. Scheduled for 01/12/17 documented in this encounter Plan of Treatment Upcoming Encounters Date Type Department Care Team (Late st Contact Info) Description 01/14/2024 4:00 PM EDT Office Visit Dermatology at [place] [address] [facility] [place] [address] Ed Geller MD 580 [facility] [place] [address] documented as of this encounter Visit Diagnoses Not on filedocumented in this encounter Care Teams Brush Holder Inspector Relationship Specialty Start Date End Date Franny Davison MD [address] [place] [address] PCP - General 05/13/10 04/14/18 documented as of this encounter
--- OUTSIDE RECORDS SUMMARY | 2024-01-12 11:24 | XMS_ITS | Encounter Summary ---
Author Organization [facility] Address [address] [place] [address] Care Team Providers Care Assisted Sales Representative Name Role Phone Bryant Crain MD Primary Care Provider [phone] Encounter Details Date Type Department Care Team (Late st Contact Info) Description 08/16/2019 Orders Only [facility] Cardiology Clinic [address] [place] [address] Ana Epperson, RAHEEM Status post placement [...] Clinic [facility] Cardiology - [facility] [place] [address] 03/08/2024 10:15 EDT Ancillary Procedure [facility] Cardiology - [facility] [address] [place], [place] [id number] 04/05/2024 10:00 EDT Ancillary Procedure [facility] Cardiology [facility] [address] [place] [address] 04/05/2024 10:00 EDT Office Visit [facility]iology [facility] [address] [place] [address] Carlos Ha NP 130 [facility] [address] [place] [address] documented as of this encounter Procedures Procedure Name Priority Date/Time Associated Diagnosis Comments CARDIAC IMPLANT CHECK - REMOTE MONITOR Routine 08/18/2019 10:27 EST Status post placement of implantable loop recorder documented in this encounter Results * CARDIAC IMPLANT CHECK - REMOTE - LOOP RECORDER (ILR) (08/18/2019 10:27 EST) Anatomical Region Laterality Modality Device Narrative 08/18/2019 10:29 EST [facility] ILR Visit Interventional Cardiologist: [employer] Device Type: Implantable loop recorder Service: Remote ? Implant Date: 11/09/2017 Indication: Cryptogenic CVA Battery Longevity: good Symptom: 0 Tachycardia: 0 Bradycardia: 0 Pause: 0 AF: 0 Impression: There is adequate battery longevity. The leads and device are functioning normally. The patient will follow up In office in 3 months. Carlos Ha APRN Procedure Note Carlos Ha APRN - 08/18/2019 [facility] ILR Visit Interventional Cardiologist: [employer] Device Type: Implantable loop recorder Service: [...] situ documented in this encounter Care Teams Assisted Sales Representative Relationship Specialty Start Date End Date Bryant Crain MD [address] [place], [place] [phone] PCP - General 05/04/15 05/17/23 documented as of this encounter
--- OUTSIDE RECORDS SUMMARY | 2024-01-12 11:24 | XMS_ITS | Encounter Summary ---
[place] [address] Care Team Providers Care Hemming And Tacking Machine Operator Name Role Phone Bryant Crain MD Primary Care Provider Encounter Details Date Type Department Care Team (Late st Contact Info) Description 09/14/2022 External Results [place] [phone] Social History Tobacco Use Types Packs/Day Years [...] 4:00 PM EDT Office Visit Dermatology at [place] [address] [facility] [place] [phone] Ed Geller MD [address] [facility] [place] [address] documented as of this encounter Procedures Procedure Name Priority Date/Time Associated Diagnosis Comments ECG SCAN Routine 09/14/2022 documented in this encounter Results * Scan Doc: ECG (09/14/2022) Historical Provider MEDIA MGR SCAN EX T ORDR/RSLT documented in this encounter Visit Diagnoses Not on filedocumented in this encounter Care Teams Hemming And Tacking Machine Operator Relationship Specialty Start Date End Date Bryant Crain MD [address] [place] [address] PCP - General Internal Medicine 04/15/18 documented as of this encounter
--- OUTSIDE RECORDS SUMMARY | 2024-01-12 11:24 | XMS_ITS | Encounter Summary ---
Author Organization [facility] Address [address] [place] [address] Care Team Providers Care Natural Resource Economist Name Role Phone Bryant Crain MD Primary Care Provider [phone] Encounter Details Date Type Department Care Team (Late st Contact Info) Description 07/17/2019 Orders Only [facility] Cardiology Clinic [address] [place] [address] Ana Epperson, RAHEEM Status post placement [...] Info) Description 03/08/2024 9:30 EDT Ancillary Procedure [facility] Cardiology - [facility] [place] [address] 03/08/2024 10:15 EDT Ancillary Procedure [facility] Cardiology - [facility] [address] [place], [place] [id number] 04/05/2024 10:00 EDT Ancillary Procedure [facility] Cardiology Clinic [address] [place] [address] 04/05/2024 10:00 EDT Office Visit [facility] [address] [place] [address] Carlos Ha, SEED CLEANER OPERATOR 130 [facility] [address] [place] [address] documented as of this encounter [...] documents for full details. Ana A Zeenat SEED CLEANER OPERATOR CV IMPLANTABLE CARDI AC DEVICE documented in this encounter Visit Diagnoses Diagnosis Status post placement of implantable loop recorder- Primary Other specified cardiac device in situ documented in this encounter Care Teams Natural Resource Economist Relationship Specialty Start Date End Date Bryant Crain MD [address] [place], [place] [phone] PCP - General 05/04/15 05/17/23 documented as of this encounter
--- OUTSIDE RECORDS SUMMARY | 2024-01-12 11:24 | XMS_ITS | Encounter Summary ---
Author Organization [facility] Address [address] [place] [address] Care Team Providers Care Surgical Pathologist Name Role Phone Bryant Crain MD Primary Care Provider [phone] Reason for Visit * Reason Onset Date Comments Pacemaker/Device Check 10/05/2019 Encounter Details Date Type Department Care Team (Late st Contact Info) Description 10/05/2019 Telephone [facility] Cardiology Clinic [address] [place] [address] Ana Epperson NP Pacemaker/Device Check Social History [...] Encounter - Fan Schaefer RN - 10/05/2019 8543 EDT Study Result Remote transmission of ILR [...] 03/08/2024 9:30 EDT Ancillary Procedure [facility] Cardiology - [address] [place] [address] 03/08/2024 10:15 EDT Ancillary Procedure [facility] Cardiology - [address] [place] [address] 04/05/2024 10:00 EDT Ancillary Procedure [facility] [address] [place] [address] 04/05/2024 10:00 EDT Office Visit [facility] [address] [place] [address] Carlos Ha NP 130 [facility] [address] [place] [address] documented as of this encounter Visit Diagnoses Not on filedocumented in this encounter Care Teams Surgical Pathologist Relationship Specialty Start Date End Date Bryant Crain MD [address] [place] [address] PCP - General 05/04/15 05/17/23 documented as of this encounter
--- OUTSIDE RECORDS SUMMARY | 2024-01-12 11:24 | XMS_ITS | Encounter Summary ---
Author Organization [facility] Address [facility] [place] [address] Care Team Providers Care Business Info Consultant Name Role Phone Bryant Crain MD Primary Care Provider Encounter Details Date Type Department Care Team (Late st Contact Info) Description 10/30/2022 Telephone Cardiology at [address] [address] Edgardo Odonnell MD [facility] [place] [address] Social History Tobacco Use Types Packs/Day Years [...] Odonnell MD - 10/30/2022 4:52 PM EDT [place] a call from ED physician Dr. Latisha [...] a non-actionable finding. Edgardo Odonnell MD, PhD, [facility] Cardiac Electrophysiology 10/30/2022 4:55 PM documented in this encounter Plan of Treatment Upcoming Encounters Date Type Department Care Team (Late st Contact Info) Description 01/14/2024 4:00 PM EDT Office Visit Dermatology at [place] [address] [facility] [place] [address] Ed Geller MD 580 [facility] [address] documented as of this encounter Visit Diagnoses Not on filedocumented in this encounter Care Teams Business Info Consultant Relationship Specialty Start Date End Date Bryant Crain MD [address] [place] [address] PCP - General Internal Medicine 04/15/18 documented as of this encounter
--- OUTSIDE RECORDS SUMMARY | 2024-01-12 11:24 | XMS_ITS | Encounter Summary ---
Author Organization [facility] Address [facility] [place] [address] Care Team Providers Care Baling Machine Operator Name Role Phone Franny Davison MD Primary Care Provider [phone] Encounter Details Date Type Department Care Team (Late st Contact Info) Description 05/01/2017 [place] [address] Mark Mcclure MD [facility] [place] [address] Social History Tobacco Use Types Packs/Day Years [...] I was called by Eli Rosario at [facility] regarding this patient. The patient has a [...] 4:00 PM EDT Office Visit Dermatology at [place] [address] [place] [address] Ed Geller MD 580 [facility] [place] [address] documented as of this encounter Visit Diagnoses Not on filedocumented in this encounter Care Teams Baling Machine Operator Relationship Specialty Start Date End Date Franny Davison MD [address] [place] [address] PCP - General 05/13/10 04/14/18 documented as of this encounter
--- OUTSIDE RECORDS SUMMARY | 2024-01-12 11:24 | XMS_ITS | Encounter Summary ---
Author Organization [facility] Address [address] [place] [address] Care Team Providers Care Dietitian Therapeutic Name Role Phone Bryant Crain MD Primary Care Provider [phone] Encounter Details Date Type Department Care Team (Late st Contact Info) Description 06/01/2019 Orders Only [facility] Cardiology Clinic [address] [place], [place] [address] Ana Epperson NP Social History Tobacco Use [...] [facility] Cardiology - [facility] [address] [place], [place] [phone] 03/08/2024 10:15 EDT Ancillary Procedure [facility] Cardiology [place] [address] 04/05/2024 10:00 EDT Ancillary Procedure [facility] Cardiology Clinic [address] [place] [address] 04/05/2024 10:00 EDT Office Visit [facility] Cardiology Clinic [address] [place] [address] Carlos Ha NP 130 [facility] [address] [place] [address] documented as of this encounter Visit Diagnoses [...] 10/02/2020 added in this encounter Care Teams Dietitian Therapeutic Relationship Specialty Start Date End Date Bryant Crain MD [address] [place], [place] [phone] PCP - General 05/04/15 05/17/23 documented as of this encounter
--- OUTSIDE RECORDS SUMMARY | 2024-01-12 11:24 | XMS_ITS | Encounter Summary ---
Author Organization [facility] Address [facility] [place] [address] Care Team Providers Care Micrographics Services Supervisor Name Role Phone Bryant Crain MD Primary Care Provider [phone] Encounter Details Date Type Department Care Team (Late st Contact Info) Description 11/10/2022 Ancillary Procedure [place] [address] Milagros Joseph MD [facility] [place] [address] Social History Tobacco Use Types Packs/Day Years [...] 4:00 PM EDT Office Visit Dermatology at [place] [address] [facility] [place] [facility] [place] [address] Ed Geller MD 580 [facility] [place] [address] documented as of this encounter Procedures Procedure Name Priority Date/Time Associated Diagnosis Comments FILM LIBRARY STORAGE ONLY DX CHEST Routine 11/10/2022 12:00 AM EDT documented in this encounter Results * Film Library- Storage Only DX Chest (11/10/2022 12:00 AM EDT) Narrative [facility] - 11/11/2022 7:35 AM EDT This exam is auto-finalizing. It's purpose is for storage only. Milagros Joseph MD IMG FILM LIBRARY ORD ERABLES Performing Organization Address City/State/[facility] Co de Phone Number [place], [place] documented in this encounter Visit Diagnoses Not on filedocumented in this encounter Care Teams Micrographics Services Supervisor Relationship Specialty Start Date End Date Bryant Crain MD [address] [place] [address] PCP - General Internal Medicine 04/15/18 documented as of this encounter
--- OUTSIDE RECORDS SUMMARY | 2024-01-12 11:24 | XMS_ITS | Encounter Summary ---
Author Organization [facility] Address [address] [place] [address] Care Team Providers Care Client Customer Manager Name Role Phone Bryant Crain MD Primary Care Provider [phone] Encounter Details Date Type Department Care Team (Late st Contact Info) Description 06/06/2019 Orders Only [facility] Cardiology Clinic [address] [place] [address] Ana Epperson, NETWORK CONTRACT MANAGER Social History Tobacco Use Types Packs/Day Years [...] 03/08/2024 9:30 EDT Ancillary Procedure [facility] [place] [address] 03/08/2024 10:15 EDT Ancillary Procedure [facility] Cardiology [place] [address] 04/05/2024 10:00 EDT Ancillary Procedure [facility] Cardiology Clinic [address] [place] [id number] 04/05/2024 10:00 EDT Office Visit [facility] Cardiology Clinic [address] [place] [phone] Carlos Ha NP 130 [facility]-[address] [place] [address] documented as of this encounter Visit Diagnoses Not on filedocumented in this encounter Care Teams Client Customer Manager Relationship Specialty Start Date End Date Bryant Crain MD [address] [place], [place] [phone] PCP - General 05/04/15 05/17/23 documented as of this encounter
--- OUTSIDE RECORDS SUMMARY | 2024-01-12 11:24 | XMS_ITS | Encounter Summary ---
Author Organization [facility] Address [address] [place] [address] Care Team Providers Care Fur Scraper Name Role Phone Bryant Crain MD Primary Care Provider [phone] Encounter Details Date Type Department Care Team (Late st Contact Info) Description 10/16/2019 Orders Only [facility] Cardiology Clinic [address] [place] [address] Ana Epperson, RAHEEM Status post placement [...] Procedure [facility] Cardiology - [facility] [place] [address] 03/08/2024 10:15 EDT Ancillary Procedure [facility] Cardiology - [facility] [address] [place], [place] [phone] 04/05/2024 10:00 EDT Ancillary Procedure [facility] Cardiology Clinic [address] [place] [address] 04/05/2024 10:00 EDT Office Visit [facility] Cardiology Clinic [address] [place] [address] Carlos Ha, LEAD MAINTENANCE TECHNICIAN 130 [facility] [address] [place] [address] documented as of this encounter [...] scanned documents for full details. Ana A Canute LEAD MAINTENANCE TECHNICIAN CV IMPLANTABLE CARDI AC DEVICE documented in this encounter Visit Diagnoses Diagnosis Status post placement of implantable loop recorder- Primary Other specified cardiac device in situ documented in this encounter Care Teams Fur Scraper Relationship Specialty Start Date End Date Bryant Crain MD [address] [place], [place] [phone] PCP - General 05/04/15 05/17/23 documented as of this encounter
--- OUTSIDE RECORDS SUMMARY | 2024-01-12 11:24 | XMS_ITS | Encounter Summary ---
Author Organization [facility] Address [address] [place] [address] Care Team Providers Care Field Attendant Name Role Phone Bryant Crain MD Primary Care Provider [phone] Encounter Details Date Type Department Care Team (Late st Contact Info) Description 11/09/2017 Historical Results Only [facility] - Main [place] [address] [place] [phone] Hayde Paul MD [address] [place] [address]-[address] [place] [address] Social History Tobacco Use Types Packs/Day [...] EDT Ancillary Procedure [facility] Cardiology [place] [address] 03/08/2024 10:15 EDT Ancillary Procedure [facility] Cardiology - [place] [address] 04/05/2024 10:00 EDT Ancillary Procedure [facility] Cardiology Clinic [address] [place] [address] 04/05/2024 10:00 EDT Office Visit [facility] [address] [place] [address] Carlos Ha NP 130 [facility] [address] [place] [address] documented as of this encounter Procedures Procedure Name Priority Date/Time Associated Diagnosis Comments POCT GLUCOSE, INTERFACED Routine 11/09/2017 13:07 EDT documented in this encounter Results * POCT GLUCOSE (11/09/2017 13:07 EDT) Glucose, POC 81 70 - 100 mg/dL 11/10/2017 6:14 EDT [facility] 11/09/2017 13:0 7 EDT 11/10/2017 6:14 EDT Hayde Paul MD POINT OF CARE T EST ORDERABLES [facility] documented in this encounter Visit Diagnoses Not on filedocumented in this encounter Care Teams Field Attendant Relationship Specialty Start Date End Date Bryant Crain MD [address] [place], [place] [phone] PCP - General 05/04/15 05/17/23 documented as of this encounter
--- OUTSIDE RECORDS SUMMARY | 2024-01-12 11:24 | XMS_ITS | Encounter Summary ---
Author Organization [facility] Address [address] [place] [address] Care Team Providers Care Chronic Manager Name Role Phone Bryant Crain MD Primary Care Provider [phone] Reason for Visit * Reason Onset Date Comments Follow-up 09/15/2019 Encounter Details Date Type Department Care Team (Late st Contact Info) Description 09/15/2019 Telephone [facility] [address] [place] [address] Carlos Ha, RAHEEM [address] [facility] [address] [place] [address] Follow-up Social History Tobacco Use [...] EDT Called pt. Who is stuck in [place] with the pandemic; says they should be [...] She ultimately went to hospital at the [facility] in [facility] and had w/u which was neg. [...] EDT Pt called back, she is in [place] and can be reached on her cell [...] Info) Description 03/08/2024 9:30 EDT Ancillary Procedure [facility] Cardiology - [address] [place], [place] [id number] 03/08/2024 10:15 EDT Ancillary Procedure [facility] Cardiology - [address] [place] [address] 04/05/2024 10:00 EDT Ancillary Procedure [facility] Cardiology Clinic [address] [place] [id number] 04/05/2024 10:00 EDT Office Visit [facility] [address] [place] [id number] Carlos Ha, PRODUCTION SHIFT SUPERVISOR [address] [facility] [address] [place] [address] documented as of this encounter Visit Diagnoses Not on filedocumented in this encounter Care Teams Chronic Manager Relationship Specialty Start Date End Date Bryant Crain MD [address] [place], [place] [id number] PCP - General 05/04/15 05/17/23 documented as of this encounter
--- OUTSIDE RECORDS SUMMARY | 2024-01-12 11:24 | XMS_ITS | Encounter Summary ---
Author Organization [facility] Address [address] [place] [address] Care Team Providers Care Cyanide Pot Hardener Name Role Phone Bryant Crain MD Primary Care Provider [phone] Encounter Details Date Type Department Care Team (Late st Contact Info) Description 10/02/2019 Orders Only [facility] Cardiology Clinic [address] [place], [place] [id number] Ana Epperson, RAHEEM Status post placement of [...] Info) Description 03/08/2024 9:30 EDT Ancillary Procedure [facility] - [facility] [place] [address] 03/08/2024 10:15 EDT Ancillary Procedure [facility] Cardiology - [facility] [address] [place], [place] [id number] 04/05/2024 10:00 EDT Ancillary Procedure [facility] Cardiology Clinic [address] [place] [address] 04/05/2024 10:00 EDT Office Visit [facility]iology [facility] [address] [place] [address] Carlos Ha, METERS SUPERINTENDENT [address] [facility] [address] [place] [address] documented as of this encounter [...] scanned documents for full details. Ana A [place] METERS SUPERINTENDENT CV IMPLANTABLE CARDI AC DEVICE documented in this encounter Visit Diagnoses Diagnosis Status post placement of implantable loop recorder- Primary Other specified cardiac device in situ documented in this encounter Care Teams Cyanide Pot Hardener Relationship Specialty Start Date End Date Bryant Crain MD [address] [place], [place] [phone] PCP - General 05/04/15 05/17/23 documented as of this encounter
--- OUTSIDE RECORDS SUMMARY | 2024-01-12 11:25 | XMS_ITS | Encounter Summary ---
[place] [address] Care Team Providers Care Customer Professional Name Role Phone Unavailable Primary Care Provider Unavailabl e Encounter Details Date Type Department Care Team (Late st Contact Info) Description 05/08/2010 4:30 PM EST Office Visit Dermatology [address] [place] [address] [address] [place] [address] Ed Geller MD 580 [facility] [place] [address] Social History Tobacco Use Types Packs/Day Years [...] 4:00 PM EDT Office Visit Dermatology at [place] [address] [place] [address] Ed Geller MD 580 [facility] [place] [address] documented as of this encounter Visit Diagnoses Not on filedocumented in this encounter
--- OUTSIDE RECORDS SUMMARY | 2024-01-12 11:25 | XMS_ITS | Encounter Summary ---
Author [facility] [place] [address] Care Team Providers Care Chronic Specialist Name Role Phone Franny Davison MD Primary Care Provider [phone] Reason for Visit * Reason Onset Date Comments Medication Refill 03/23/2016 Encounter Details Date Type Department Care Team (Late st Contact Info) Description 03/23/2016 Refill [place] [address] Luna Galvez MD [facility] [place] [address] Diabetes mellitus without complication Social History Tobacco [...] 4:00 PM EDT Office Visit Dermatology at [place] [address] [place] [address] Ed Geller MD 580 [facility] [place] [address] documented as of this encounter Visit Diagnoses Diagnosis Diabetes mellitus without complication Type II or unspecified type diabetes mellitus without mention of complication, not stated as uncontrolled documented in this encounter Care Teams Chronic Specialist Relationship Specialty Start Date End Date Franny Davison MD [address] [place] [address] PCP - General 05/13/10 04/14/18 documented as of this encounter
--- OUTSIDE RECORDS SUMMARY | 2024-01-12 11:25 | XMS_ITS | Encounter Summary ---
Author Organization [facility] Address [facility] [place] [address] Care Team Providers Care Head Of English Name Role Phone Franny Davison MD Primary Care Provider [phone] Reason for Visit * Reason Comments Diabetes * Consultation (Routine) - Closed Specialty Diagnoses / Procedures Referred By Contac t Referred To Contact Endocrinology Diagnoses diabetes type 2 requiring insulin - poorly controlled Franny Davison MD [address] [place] [address] [facility] [address] [place] [phone] Referral ID Status Reason Start Date Expiration Date V isits Requested Visits Authorized [id number] Closed [facility] 01/09/2016 01/08/2017 1 1 Encounter Details Date Type Department Care Team (Late st Contact Info) Description 02/18/2016 3:30 PM EDT Office [place] [address] Vidhya Schilling MD [facility] [place] [address] Luna Galvez MD [facility] [place] [address] Diabetes mellitus without complication Social [...] your insulin doses adjusted. [facility] office documented in this encounter Progress Notes * Luna Galvez MD - 02/18/2016 3:30 PM EDT Diabetes Outpatient Consult Date of Consultation: 02/18/2016 Consult Requested by: Dr. Davison Reason for Consultation: Joanna Hart is a 65 y.o. years old female with PMH significant for DMT2 . We are being consulted to assist with diabetes management and to provide a review of group home diabetes care. Diabetes History: Joanna Hart has [...] your insulin doses adjusted. [facility]ocrine clinic office detention diabetes care: Medications - Outpatient treatment regimen recommendations pending based on the hospital course. Monitoring - continue BG tid ac & hs Diet - low fat/low carb diet Exercise - weight-bearing exercise 30 min/day, as tolerated Thank you for the consult D/w Dr Tonie Galvez MD Endocrine Fellow Pager- [phone] * Vidhya Schilling MD - 02/18/2016 3:30 [...] glipizideER 10 mg qd and moderatedose of [id number] mg bid. She can stop meal-associated novolog [...] 4:00 PM EDT Office Visit Dermatology at [address] [facility] [place] [address] Ed Geller MD 580 [facility] [place] [address] documented as of this encounter Visit Diagnoses Diagnosis Diabetes mellitus without complication Type II or unspecified type diabetes mellitus without mention of complication, not stated as uncontrolled documented in this encounter Care Teams Head Of English Relationship Specialty Start Date End Date Franny Davison MD [address] [place] [address] PCP - General 05/13/10 04/14/18 documented as of this encounter
--- OUTSIDE RECORDS SUMMARY | 2024-01-12 11:25 | XMS_ITS | Encounter Summary ---
[place] [address] Care Team Providers Care Director Of Capital Giving Name Role Phone Franny Davison MD Primary Care Provider [phone] Reason for Visit * Reason Onset Date Comments Medication Refill 03/09/2016 Encounter Details Date Type Department Care Team (Late st Contact Info) Description 03/09/2016 Ref[place] [phone] Vashti Avila, RN Social History Tobacco Use [...] 4:00 PM EDT Office Visit Dermatology at [place] [address] [place] [address] Ed Geller MD 580 [facility] [place] [address] documented as of this encounter Visit Diagnoses Not on filedocumented in this encounter Care Teams Director Of Capital Giving Relationship Specialty Start Date End Date Franny Davison MD [address] [place] [address] PCP - General 05/13/10 04/14/18 documented as of this encounter
--- OUTSIDE RECORDS SUMMARY | 2024-01-12 11:25 | XMS_ITS | Encounter Summary ---
Author Organization [facility] Address [facility] [place] [address] Care Team Providers Care Technical Cable Jointer Name Role Phone Franny Davison MD Primary Care Provider Reason for Visit * Reason Onset Date Comments Medication Refill 02/20/2016 Encounter Details Date Type Department Care Team (Late st Contact Info) Description 02/20/2016 [place] [address] Luna Galvez MD [facility] [place] [address] Diabetes mellitus without complication Social History Tobacco [...] 4:00 PM EDT Office Visit Dermatology at [address] [place] [address] Ed Geller MD [address] [facility] [place] [address] documented as of this encounter Visit Diagnoses Diagnosis Diabetes mellitus without complication Type II or unspecified type diabetes mellitus without mention of complication, not stated as uncontrolled documented in this encounter Care Teams Technical Cable Jointer Relationship Specialty Start Date End Date Franny Davison MD [address] [place] [address] PCP - General 05/13/10 04/14/18 documented as of this encounter
--- OUTSIDE RECORDS SUMMARY | 2024-01-12 11:25 | XMS_ITS | Encounter Summary ---
[place] [address] Care Team Providers Care Order Detailer Name Role Phone Bryant Crain MD Primary Care Provider [phone] Encounter Details Date Type Department Care Team (Late st Contact Info) Description 05/08/2010 Orders Only Dermatology at [address] [address] Ed Geller MD [address] [place] [address] [place] [address] Social History Tobacco Use Types Packs/Day Years [...] 4:00 PM EDT Office Visit Dermatology at [address] [address] Ed Geller MD [address] [place] [address] [place] [address] documented as of this encounter Procedures Procedure Name Priority Date/Time Associated Diagnosis Comments SURGICAL PATHOLOGY REPORT Routine 05/08/2010 6:17 PM EST documented in this encounter Results * Surgical Pathology Report (05/08/2010 6:17 PM EST) Surgical Pathology Report [id number] ? Location: [facility] The signing pathologist has (i) examined the relevant preparation(s) for the specimen(s) and (ii) rendered or confirmed the diagnosis(es). . ?Pathology Surgical Pathology Final Report Clinical Information Specimen Submitted: A - Distal dorsal (R) foot, near base of 3rd toe, punch Clinical History: New atypical mole Clinical Diagnosis: Atypical nevus Report to: _ Ed Geller MD, [facility] Dermatology [place], [place] ??[address] Gross Description Labeled/Fixative: ? Distal dorsal R [...] Verified by: ? Stefan HAY, PhD, Leonie ?Dermatopatholog ist ?(Electronic Signature) The attending pathologist [...] specimen edge, c omplete excision is recommended. Henrique Painting and Erick have reviewed this case and concur with this diagnosis. ELOISA DOMINGO 05/08/2010 6:17 PM EST Ed Geller MD PATHOLOGY/CYTOLOGY O RDERALASHELL ELOISA DOMINGO documented in this encounter Visit Diagnoses Not on filedocumented in this encounter Care Teams Order Detailer Relationship Specialty Start Date End Date Bryant Crain MD [address] [place] [address] PCP - General Internal Medicine 04/15/18 documented as of this encounter
--- OUTSIDE RECORDS SUMMARY | 2024-01-12 11:25 | XMS_ITS | Encounter Summary ---
[place] [address] Care Team Providers Care Profile Saw Operator Name Role Phone Franny Davison MD Primary Care Provider [phone] Encounter Details Date Type Department Care Team (Late st Contact Info) Description 05/22/2010 5:15 PM EST Office Visit Dermatology [address] [place] [address] [address] [place], [place] [address] Ed Geller MD 580 [facility] [place] [address] Social History Tobacco Use Types Packs/Day Years [...] 4:00 PM EDT Office Visit Dermatology at [place] [address] [place] [address] Ed Geller MD 580 [facility] [place] [address] documented as of this encounter Visit Diagnoses Not on filedocumented in this encounter Care Teams Profile Saw Operator Relationship Specialty Start Date End Date Franny Davison MD [address] [place], [place] [address] PCP - General 05/13/10 04/14/18 documented as of this encounter
--- OUTSIDE RECORDS SUMMARY | 2024-01-12 11:25 | XMS_ITS | Encounter Summary ---
[place] [address] Care Team Providers Care Dynamometer Tester Engine Name Role Phone Franny Davison MD Primary Care Provider [phone] Reason for Visit * Reason Onset Date Comments Medication Refill 03/26/2016 Encounter Details Date Type Department Care Team (Late st Contact Info) Description 03/26/2016 Ref[place] [address] Karrie Buck RN Social History Tobacco Use [...] 4:00 PM EDT Office Visit Dermatology at [address] [phone] Ed Geller MD 580 [facility] [place] [address] documented as of this encounter Visit Diagnoses Not on filedocumented in this encounter Care Teams Dynamometer Tester Engine Relationship Specialty Start Date End Date Franny Davison MD [address] [place] [address] PCP - General 05/13/10 04/14/18 documented as of this encounter
--- OUTSIDE RECORDS SUMMARY | 2024-01-12 11:25 | XMS_ITS | Encounter Summary ---
Author Organization [facility] [place] [address] Care Team Providers Care Deflector Operator Name Role Phone Franny Davison MD Primary Care Provider [phone] Reason for Visit * Reason Comments Skin Lesion Encounter Details Date Type Department Care Team (Late st Contact Info) Description 03/12/2015 4:00 PM EDT Office Visit Dermatology at [address] [address] Ed Geller MD 580 [facility] DERMATOLOGY [place], [place] [id number] [place] (actinic keratosis) Discharge Disposition: Home Social [...] 4:00 PM EDT Office Visit Dermatology at [address] [address] Ed Geller MD [address] [place] [address] [place] [address] documented as of this encounter Visit Diagnoses Diagnosis AK (actinic keratosis) Actinic keratosis documented in this encounter Care Teams Deflector Operator Relationship Specialty Start Date End Date Franny Davison MD [address] [place] [address] PCP - General 05/13/10 04/14/18 documented as of this encounter
--- OUTSIDE RECORDS SUMMARY | 2024-01-12 11:25 | XMS_ITS | Encounter Summary ---
Author Organization [facility] [place] [address] Care Team Providers Care Corrugator Operator Name Role Phone Franny Davison MD Primary Care Provider [phone] Reason for Visit * Reason Comments Follow-up Encounter Details Date Type Department Care Team (Late st Contact Info) Description 04/19/2015 1:00 PM EDT Office Visit Dermatology at [address] [address] Ed Geller MD 580 [facility] DERMAT[facility] [place], [place] [phone] [place] (actinic keratosis) Social History Tobacco Use [...] 4:00 PM EDT Office Visit Dermatology at [address] [address] Ed Geller MD [address] [place] [address] [place] [address] documented as of this encounter Visit Diagnoses Diagnosis [place] (actinic keratosis) Actinic keratosis documented in this encounter Care Teams Corrugator Operator Relationship Specialty Start Date End Date Franny Davison MD [address] [place] [address] PCP - General 05/13/10 04/14/18 documented as of this encounter
--- OUTSIDE RECORDS SUMMARY | 2024-01-12 11:25 | XMS_ITS | Encounter Summary ---
[place] [address] Care Team Providers Care High School Foreign Language Tutor Name Role Phone Franny Davison MD Primary Care Provider [phone] Encounter Details Date Type Department Care Team (Late st Contact Info) Description 03/23/2016 Tele[place] [address] Queta Arcos LPN Social History Tobacco Use [...] 4:00 PM EDT Office Visit Dermatology at [address] [place] [address] Ed Geller MD [address] [facility] [place] [address] documented as of this encounter Visit Diagnoses Not on filedocumented in this encounter Care Teams High School Foreign Language Tutor Relationship Specialty Start Date End Date Franny Davison MD [address] [place] [address] PCP - General 05/13/10 04/14/18 documented as of this encounter
--- OUTSIDE RECORDS SUMMARY | 2024-01-12 11:25 | XMS_ITS | Encounter Summary ---
[place] [address] Care Team Providers Care Shearer Screen Measurer And Trimmer Name Role Phone Franny Davison MD Primary Care Provider [phone] Reason for Visit * Reason Onset Date Comments Prior Authorization 03/02/2016 Encounter Details Date Type Department Care Team (Late st Contact Info) Description 03/02/2016 Tele[place] [address] Tammy Mason Prior Authorization Social History Tobacco [...] TYPE 2 Health plan: [employer] Authorizing access services representative name: TAMMY Faxed to health plan on: 03/02/16 Health plan decision: DENIED Quantity approved: Preferred Medications: Bydureon/Byetta, and Trulicity. Authorization number: Start date: End date: Patient notified? Pharmacy notified? documented in this encounter Plan of Treatment Upcoming Encounters Date Type Department Care Team (Late st Contact Info) Description 01/14/2024 4:00 PM EDT Office Visit Dermatology at [place] [address] [place] [address] Ed Geller MD 580 [facility] [place] [address] documented as of this encounter Visit Diagnoses Not on filedocumented in this encounter Care Teams Shearer Screen Measurer And Trimmer Relationship Specialty Start Date End Date Franny Davison MD [address] [place] [address] PCP - General 05/13/10 04/14/18 documented as of this encounter
--- OUTSIDE RECORDS SUMMARY | 2024-01-12 11:25 | XMS_ITS | Encounter Summary ---
Author Organization [facility] [place] [address] Care Team Providers Care Commercial Census Taker Name Role Phone Franny Davison MD Primary Care Provider [phone] Reason for Visit * Reason Comments Follow-up Encounter Details Date Type Department Care Team (Late st Contact Info) Description 04/20/2011 4:45 PM EDT Office Visit Dermatology [address] [place] [address] [address] [place] [address] Ed Geller MD 580 [facility] [place] [address] Actinic keratosis treated with topical [...] given with no refills to fill at [facility]. c. RTC then in six months for repeat check. Cc: Franny Davison MD documented in this encounter Plan of Treatment Upcoming Encounters Date Type Department Care Team (Late st Contact Info) Description 01/14/2024 4:00 PM EDT Office Visit Dermatology at [address] [address] Ed Geller MD 580 [facility] [place] [address] documented as of this encounter Visit Diagnoses Diagnosis Actinic keratosis treated with topical fluorouracil (5FU)- Primary Actinic keratosis documented in this encounter Care Teams Commercial Census Taker Relationship Specialty Start Date End Date Franny Davison MD [address] [place] [address] PCP - General 05/13/10 04/14/18 documented as of this encounter
--- OUTSIDE RECORDS SUMMARY | 2024-01-12 11:25 | XMS_ITS | Encounter Summary ---
Author Organization [facility] Address [facility] [place] [address] Care Team Providers Care Knurling Machine Operator Name Role Phone Franny Davison MD Primary Care Provider [phone] Reason for Visit * Reason Comments Diabetes Encounter Details Date Type Department Care Team (Late st Contact Info) Description 07/09/2016 1:30 PM EST Office Visit [place] [address] Luna Galvez MD [facility] [place] [address] Type 2 diabetes mellitus without complication, without [...] management and to provide a review of skilled nursing diabetes care. Diabetes History: Joanna Hart has [...] day to have your insulin doses adjusted. [place] Endocrine clinic office care home diabetes care: Monitoring - continue BG tid ac & hs Diet - low fat/low carb diet Exercise - weight-bearing exercise 30 min/day, as tolerated Thank you for the consult. D/w Dr Tonie Galvez MD Endocrine Fellow Pager- [phone] * Vidhya Schilling MD - 07/09/2016 1:30 [...] 4:00 PM EDT Office Visit Dermatology at [place] [address] [facility] [address] [place] [address] Ed Geller MD [address] [facility] [place] [address] documented as of this encounter Procedures Procedure Name Priority Date/Time Associated Diagnosis Comments HEMOGLOBIN A1C STAT 07/09/2016 2:32 PM EST Type 2 diabetes mellitus without complication, without long-term current use of insulin documented in this encounter Results * (ABNORMAL) Hemoglobin A1c (07/09/2016 2:32 PM EST) Hemoglobin A1C 7.4(H) 4.3 - 5.6 % [facility] Comment: Reference Range: 4.3 [...] Mellitus, Diabetes Care 2013; 36: Suppl. 1, S67-83 Est Avg Gluc 166 mg/dL [facility] Comment: eAG equivalents for HbA1c percentages: HbA1c(%) ?eAG(mg/dL) 6.0 ?126 6.5 ?140 7.0 ?154 7.5 ?169 8.0 ?183 8.5 ?197 9.0 ?212 9.5 ?226 10.0 ? 240 Limitations: The eAG calculation has not been validated on women, individuals below 18 years old and above 70 years old, and individuals with hemoglobinopathies. Additional resources are available on the ADA website: http://NowThis News.com/DHMCadacalc Tyrone FINK, Rodger J, Vidal R, et al. ??Translating the A1C assay into estimated average glucose values. ??Diabetes Care 2008:31(8):2286-1634. Blood specimen (specimen) 07/09/2016 2:32 PM EST 07/09/2016 2:39 PM EST Narrative Resulting Agency Comment Spec In Lab Vidhya Schilling MD CHEMISTRY ORDERAB LES [facility] [place] [address] documented in this encounter Visit Diagnoses Diagnosis Type 2 diabetes mellitus without complication, without long-term current use of insulin documented in this encounter Care Teams Knurling Machine Operator Relationship Specialty Start Date End Date Franny Davison MD [address] [place] [address] PCP - General 05/13/10 04/14/18 documented as of this encounter
--- OUTSIDE RECORDS SUMMARY | 2024-01-12 11:25 | XMS_ITS | Encounter Summary ---
[place] [address] Care Team Providers Care Trolley Car Mechanic Name Role Phone Franny Davison MD Primary Care Provider [phone] Encounter Details Date Type Department Care Team (Late st Contact Info) Description 03/02/2016 Telephone [place] [id number] Queta Arcos LPN Social History Tobacco Use [...] R/c to patient PA is needed for Forrest. Forward to department secretary for PA documented in this encounter Plan of Treatment Upcoming Encounters Date Type Department Care Team (Late st Contact Info) Description 01/14/2024 4:00 PM EDT Office Visit Dermatology at [place] [address] [facility] [place] [address] Ed Geller MD [address] [facility] DERMATOLOGY [place], [place] [id number] documented as of this encounter Visit Diagnoses Not on filedocumented in this encounter Care Teams Trolley Car Mechanic Relationship Specialty Start Date End Date Franny Davison MD [address] [place] [address] PCP - General 05/13/10 04/14/18 documented as of this encounter
--- OUTSIDE RECORDS SUMMARY | 2024-01-12 11:25 | XMS_ITS | Encounter Summary ---
Author Organization [facility] [address] Care Team Providers Care Associate Of Science In Nursing Name Role Phone Franny Davison MD Primary Care Provider [phone] Reason for Visit * Reason Comments Skin Lesion Encounter Details Date Type Department Care Team (Late st Contact Info) Description 01/27/2011 11:00 AM EDT Office Visit Dermatology [address] [place] [address] [address] [place] [address] Ed Geller MD [address] [facility] [place] [address] Actinic keratosis (Primary Dx) Social History Tobacco [...] 30gm dispensed to be faxed to her [facility] from the [facility]. d. Recommended that the patient also begin [...] 4:00 PM EDT Office Visit Dermatology at [place] [address] [place] [address] Ed Geller MD [address] [facility] [place] [address] documented as of this encounter Visit Diagnoses Diagnosis Actinic keratosis- Primary documented in this encounter Care Teams Associate Of Science In Nursing Relationship Specialty Start Date End Date Franny Davison MD [address] [place] [address] PCP - General 05/13/10 04/14/18 documented as of this encounter
--- OUTSIDE RECORDS SUMMARY | 2024-01-12 11:25 | XMS_ITS | Encounter Summary ---
Author Organization [facility] [place] [address] Care Team Providers Care Licensing And Registration Director Name Role Phone Franny Davison MD Primary Care Provider [phone] Reason for Visit * Reason Comments Skin Check Encounter Details Date Type Department Care Team (Late st Contact Info) Description 10/26/2011 8:45 AM EDT Office Visit Dermatology [address] [place] [address] [address] [place] [address] Ed Geller MD [address] [facility] [place] [address] Actinic keratosis (Primary Dx) Social History Tobacco [...] 4:00 PM EDT Office Visit Dermatology at [address] [address] Ed Geller MD [address] [facility] [place] [address] documented as of this encounter Visit Diagnoses Diagnosis Actinic keratosis- Primary documented in this encounter Care Teams Licensing And Registration Director Relationship Specialty Start Date End Date Franny Davison MD [address] [place] [address] PCP - General 05/13/10 04/14/18 documented as of this encounter
--- OUTSIDE RECORDS SUMMARY | 2024-01-12 11:25 | XMS_ITS | Encounter Summary ---
Author Organization [facility] Address [facility] [place] [address] Care Team Providers Care Senior Design Engineering Specialist Name Role Phone Franny Davison MD Primary Care Provider Reason for Visit * Reason Onset Date Comments Medication Refill 03/25/2016 Encounter Details Date Type Department Care Team (Late st Contact Info) Description 03/25/2016 [place]ill [place] [address] Luna Galvez MD [facility] [place] [address] Social History Tobacco Use Types Packs/Day Years [...] 4:00 PM EDT Office Visit Dermatology at [place] [address] [facility] [place] [phone] Ed Geller MD [address] [facility] [place] [address] documented as of this encounter Visit Diagnoses Not on filedocumented in this encounter Care Teams Senior Design Engineering Specialist Relationship Specialty Start Date End Date Franny Davison MD [address] [place] [address] PCP - General 05/13/10 04/14/18 documented as of this encounter
--- OUTSIDE RECORDS SUMMARY | 2024-01-12 11:25 | XMS_ITS | Encounter Summary ---
[place] [address] Care Team Providers Care Aging Box Hand Name Role Phone Franny Davison MD Primary Care Provider [phone] Encounter Details Date Type Department Care Team (Late st Contact Info) Description 05/08/2010 [place] [address] Ed Willard MD [address] [facility] [place] [address] Social History Tobacco Use Types Packs/Day Years [...] 4:00 PM EDT Office Visit Dermatology at [place] [address] [place] [address] Ed Willard MD [address] [facility] [place] [address] documented as of this encounter Procedures Procedure Name Priority Date/Time Associated Diagnosis Comments SURGICAL PATHOLOGY REPORT Routine 05/08/2010 6:17 PM EST documented in this encounter Results * PATHOLOGY SURGICAL PATHOLOGY FINAL REPORT (05/08/2010 6:17 PM EST) Surgical Pathology Report ? [facility] ? Provider: ?? ED WILLARD ?? Pt. Name: ?? JOANNA HART ? Acc #: ?[id number] ? Pt. ? Col Date: ?? 05/08/2010 [...] specimen edge, complete excision is recommended. ? KimberlyYaneth Arteaga, Henrique and Erick have reviewed this [...] Clinical History: ? New atypical mole ? [facility] ? Provider: ?? ED WILLARD ?? Pt. Name: ?? JOANNA HART ? Acc #: ?[id number] ? Pt. ? Col Date: ?? 05/08/2010 ?/Sex: ?1950,(59 years),Female ? Rec Date: ?? 05/09/2010 ?LOC: ?[facility] ? SURGICAL PATHOLOGY ? Clinical Diagnosis: ? Atypical nevus ? Report to: ? _ ? Ed Willard MD, III ? [facility] ? Dermatology ? [place], [place] ??[address] ELOISA DOMINGO 05/08/2010 6:17 PM EST Ed Willard MD PATHOLOGY/CYTOLOGY O [facility] Performing Organization Address City/State/[facility] Co de Phone Number ELOISA DOMINGO documented in this encounter Visit Diagnoses Not on filedocumented in this encounter Care Teams Aging Box Hand Relationship Specialty Start Date End Date Franny Davison MD [address] [place] [address] PCP - General 05/13/10 04/14/18 documented as of this encounter
[2024-01-12 11:39] VITALS: BP 133/70; PULSE 83
--- OUTSIDE RECORDS SUMMARY | 2024-01-14 11:06 | XMS_ITS | Data Portability ---
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 [facility] [place] Not available 11/04/2023 07:33:34 Plan of Treatment Reminders Order Date Submit Date Provider Last Modified By Organization Details Last Modified Time Details Appointments Medical Nutritio n Therapy 90 2023 11:00A M Isatu Yo Not available Not available Not available Annual Chronic Care (65+) 40 2023 02:40P Naman Jett Not available Not available Not available Lab hemoglob in A1C, fingerst ick 2023 024 [facility], [address] [place] [address], [id number], 11/03/2023 14:49:34 BMP, serum or plasma 2023 024 [facility] ([facility]), [address] [place] [address] [place], [address], 12/15/2023 13:55:51 protein electrop horesis panel, serum or plasma 2023 024 [facility] ([facility]), [address] [place] [address] [place], [address], 12/14/2023 14:48:56 TSH, serum, reflex free T4 2023 [facility] ([facility]), [address] [place] [address] [place], [address], 12/15/2023 13:56:06 lyme disease igg+igm, serum, reflex western blot 2023 024 [facility] ([facility]), [address] [place] [address] [place], [address], 12/15/2023 13:56:24 vitamin B6 (pyridox ine), plasma 2023 024 [email or web address] [facility] ([facility]), [address] [place] [address] [place], [address], 12/20/2023 10:16:41 hemoglob in A1C, fingerst ick 2023 [facility], [address] [place] [address], [phone], 12/30/2023 10:34:51 CBC w/ auto diff 2023 024 [facility] ([facility]), [address] [place] [address] [place], [address], 12/30/2023 11:02:48 BNP (B-type natriure tic peptide) , serum or plasma 2023 024 [email or web address] [facility] ([facility]), [address] [place] [address] [place], [address], 01/06/2024 08:37:02 troponin I, serum or plasma 2023 024 [facility] ([facility]), [address] [place], [address], 12/30/2023 11:24:47 Referral optometr ist referral - once visit is complete please send us the visit notes 2023 024 [email or web address] [facility], [address] [place] [address] [place], [address], 01/10/2024 14:14:27 Procedures None recorded . Surgeries None recorded . Imaging electroc ardiogra m 2023 [facility], [address] [place] [address], [phone], 12/30/2023 12:41:58 Medication Orders Lantus Solostar U-100 Insulin 100 unit/mL (3 mL) subcutan eous pen 2023 024 [email or web address], [address] [place] [address], [address], 10/04/2023 15:54:20 Patient TargetsNo targets recorded. Patient Instructions Encounter Date Encounter Id Patient Instructions Last Modified By Organization Details Last Modified Time 12/30/2023 [id number] diet [email or web address] Not available 12/29 10:34:51 Reason for Referral Diabetic Nutrition Education Referral for Type II diabetes mellitus uncontrolled assist with new CGM Referring Physician: Bharath Jett, Family Medicine, Encounter Date: 10/27/2023 Senior Account Representative Referral for Typ e II diabetes mellitus uncontrolled once visit is complete please send us the visit notes Referring Physician: Bharath Jett Family Medicine, Encounter Date: 11/03/2023 Results Created Date Observation Date Name Description Value Unit Range Abnormal Flag LastModifiedBy Organization Detail LastModifiedTime 11/03/19 24 11/03/2023 hemog lobin A1C, finge rstic k hemoglobin A1C 7.7 % <5.7 Not Available [address] [place], [phone], 11/03/2023 14:48:42 11/28/19 24 11/28/2023 COMPL ETE BLOOD COUNT W/DIF F WBC 9.39 10_3/ uL 4.4-10 .8 normal Not Available [address] [place], [address] 11/28/2023 18:49:39 11/28/19 24 11/28/2023 COMPL ETE BLOOD COUNT W/DIF F RBC 4.73 10_6/ uL 3.93-5 .22 normal Not Available [address] [place], [address] 11/28/2023 18:49:39 11/28/19 24 11/28/2023 COMPL ETE BLOOD COUNT W/DIF F HGB 13.4 g/dL 11.2-1 5.7 normal Not Available [address] [place], [address] 11/28/2023 18:49:39 11/28/19 24 11/28/2023 COMPL ETE BLOOD COUNT W/DIF F HCT 41.0 % 36.0-4 6.0 normal Not Available [address] [place], [address] 11/28/2023 18:49:39 11/28/19 24 11/28/2023 COMPL ETE BLOOD COUNT W/DIF F MCV 87 fL 80-95 normal Not Available Mohamud roldan [address] [place], [address] 11/28/2023 18:49:39 11/28/19 24 11/28/2023 COMPL ETE BLOOD COUNT W/DIF F MCH 28.3 pg 27.0-3 3.0 normal Not Available [address] [place], [address] 11/28/2023 18:49:39 11/28/19 24 11/28/2023 COMPL ETE BLOOD COUNT W/DIF F MCHC 32.7 % 32.0-3 6.0 normal Not Available [address] [place], [address] 11/28/2023 18:49:39 11/28/19 24 11/28/2023 COMPL ETE BLOOD COUNT W/DIF F RDW 13.7 % 11.7-1 4.6 normal Not Available [address] [place], [address] 11/28/2023 18:49:39 11/28/19 24 11/28/2023 COMPL ETE BLOOD COUNT W/DIF F platelet count 280 10_3/ uL 130-40 0 normal Not Available [address] [place], [address] 11/28/2023 18:49:39 11/28/19 24 11/28/2023 COMPL ETE BLOOD COUNT W/DIF F MPV 10.3 fL 8.0-11 .0 normal Not Available [address] [place], [address] 11/28/2023 18:49:39 11/28/19 24 11/28/2023 COMPL ETE BLOOD COUNT W/DIF F neutrophils % 48.6 % Not Available [address] [place], [address] 11/28/2023 18:49:39 11/28/19 24 11/28/2023 COMPL ETE BLOOD COUNT W/DIF F lymphocytes % 39.1 % Not Available [address] [place], [address] 11/28/2023 18:49:39 11/28/19 24 11/28/2023 COMPL ETE BLOOD COUNT W/DIF F monocytes % 8.0 % Not Available [address] [place], [address] 11/28/2023 18:49:39 11/28/19 24 11/28/2023 COMPL ETE BLOOD COUNT W/DIF F eosinophils % 3.5 % Not Available [address] [place], [address] 11/28/2023 18:49:39 11/28/19 24 11/28/2023 COMPL ETE BLOOD COUNT W/DIF F basophils % 0.6 % Not Available [address] [place] [place], [address] 11/28/2023 18:49:39 11/28/19 24 11/28/2023 COMPL ETE BLOOD COUNT W/DIF F immature grans % 0.2 % Not Available [address] [place], [address] 11/28/2023 18:49:39 11/28/19 24 11/28/2023 COMPL ETE BLOOD COUNT W/DIF F nucleated RBC 0.0 % 0.0-0. 3 normal Not Available [address] [place], [address] 11/28/2023 18:49:39 11/28/19 24 11/28/2023 COMPL ETE BLOOD COUNT W/DIF F absolute neutrophil count 4.56 10_3/ uL 1.2-6. 7 normal Not Available [address] [place], [address] 11/28/2023 18:49:39 11/28/19 24 11/28/2023 COMPL ETE BLOOD COUNT W/DIF F absolute lymphocyte count 3.67 10_3/ uL 1.2-3. 4 high Not Available [address] [place], [address] 11/28/2023 18:49:39 11/28/19 24 11/28/2023 COMPL ETE BLOOD COUNT W/DIF F absolute monocyte count 0.75 10_3/ uL 0.1-0. 8 normal Not Available [address] [place], [address] 11/28/2023 18:49:39 11/28/19 24 11/28/2023 COMPL ETE BLOOD COUNT W/DIF F absolute eosinophil count 0.33 10_3/ uL 0.0-0. 7 normal Not Available [address] [place], [address] 11/28/2023 18:49:39 11/28/19 24 11/28/2023 COMPL ETE BLOOD COUNT W/DIF F absolute basophil count 0.06 10_3/ uL 0.0-0. 2 normal Not Available [address] [place], [address] 11/28/2023 18:49:39 11/28/19 24 11/28/2023 COMPR EHENS BHARTI METAB OLIC PANEL calcium 10.2 mg/dL 8.5-10 .1 high Not Available [address] [place], [address] 11/28/2023 19:05:40 11/28/19 24 11/28/2023 COMPR EHENS BHARTI METAB OLIC PANEL glucose 178 mg/dL 74-106 high Not Available [address] [place], [address] 11/28/2023 19:05:40 11/28/19 24 11/28/2023 COMPR EHENS BHARTI METAB OLIC PANEL BUN 18 mg/dL 7-18 normal Not Available [address] [place], [address] 11/28/2023 19:05:40 11/28/19 24 11/28/2023 COMPR EHENS BHARTI METAB OLIC PANEL creatinine 1.1 mg/dL 0.55-1 .02 high Not Available [address] [place], [address] 11/28/2023 19:05:40 11/28/19 24 11/28/2023 COMPR EHENS BHARTI METAB OLIC PANEL estimated GFR 53.72 mL/min /1.73m 2 Not Available [address] [place], [address] 11/28/2023 19:05:40 11/28/19 24 11/28/2023 COMPR EHENS BHARTI METAB OLIC PANEL total protein 7.2 g/dL 6.4-8. 2 normal Not Available [address] [place], [address] 11/28/2023 19:05:40 11/28/19 24 11/28/2023 COMPR EHENS BHARTI METAB OLIC PANEL albumin 3.8 g/dL 3.4-5. 0 normal Not Available [address] [place], [address] 11/28/2023 19:05:40 11/28/19 24 11/28/2023 COMPR EHENS BHARTI METAB OLIC PANEL bilirubin, total 0.3 mg/dL 0.2-1. 0 normal Not Available [address] [place], [address] 11/28/2023 19:05:40 11/28/19 24 11/28/2023 COMPR EHENS BHARTI METAB OLIC PANEL alk phos 67 U/L 46-116 normal Not Available [address] [place], [address] 11/28/2023 19:05:40 11/28/19 24 11/28/2023 COMPR EHENS BHARTI METAB OLIC PANEL sodium 141 mmol/ L 136-14 5 normal Not Available [address] [place], [address] 11/28/2023 19:05:40 11/28/19 24 11/28/2023 COMPR EHENS BHARTI METAB OLIC PANEL potassium 4.2 mmol/ L 3.5-5. 1 normal Not Available [address] [place], [address] 11/28/2023 19:05:40 11/28/19 24 11/28/2023 COMPR EHENS BHARTI METAB OLIC PANEL chloride 106 mmol/ L 98-107 normal Not Available [address] [place], [address] 11/28/2023 19:05:40 11/28/19 24 11/28/2023 COMPR EHENS BHARTI METAB OLIC PANEL CO2 24.5 mmol/ L 21.0-3 2.0 normal Not Available [address] [place], [address] 11/28/2023 19:05:40 11/28/19 24 11/28/2023 COMPR EHENS BHARTI METAB OLIC PANEL anion gap 10.5 mmol/ L 3-11 normal Not Available [address] [place], [address] 11/28/2023 19:05:40 11/28/19 24 11/28/2023 COMPR EHENS BHARTI METAB OLIC PANEL AST 17 U/L 15-37 normal Not Available [address] [place], [address] 11/28/2023 19:05:40 11/28/19 24 11/28/2023 COMPR EHENS BHARTI METAB OLIC PANEL ALT 25 U/L 14-59 normal Not Available [address] [place], [address] 11/28/2023 19:05:40 11/28/19 24 11/28/2023 MAGNE SIUM magnesium 1.4 mg/dL 1.8-2. 4 low Not Available [address] [place], [address] 11/28/2023 19:05:41 11/28/19 24 11/28/2023 TROPO ABEL I troponin I 119 NG/L < or =60 panic high Not Available [address] [place], [address] 11/28/2023 19:05:41 11/28/19 24 11/28/2023 URINA LYSIS color Yellow yellow Not Available [address] [place], [address] 11/28/2023 21:43:16 11/28/19 24 11/28/2023 URINA LYSIS clarity Sl Cloudy clear Not Available [address] [place], [address] 11/28/2023 21:43:16 11/28/19 24 11/28/2023 URINA LYSIS specific gravity 1.020 1.005- 1.025 normal Not Available [address] [place], [address] 11/28/2023 21:43:16 11/28/19 24 11/28/2023 URINA LYSIS pH 5.5 5-[address] [facility] [address] [place], [address] 11/28/2023 21:43:16 11/28/19 24 11/28/2023 URINA LYSIS leukocyte esterase Negati ve negati ve Not Available [address] [place], [address] 11/28/2023 21:43:16 11/28/19 24 11/28/2023 URINA LYSIS nitrite Negati ve negati ve Not Available [address] [place], [address] 11/28/2023 21:43:16 11/28/19 24 11/28/2023 URINA LYSIS protein 30 mg/dL neg-tr lópez abnormal Not Available [address] [place], [address] 11/28/2023 21:43:16 11/28/19 24 11/28/2023 URINA LYSIS glucose Negati ve mg/dL negati ve Not Available [address] [place], [address] 11/28/2023 21:43:16 11/28/19 24 11/28/2023 URINA LYSIS ketones Negati ve mg/dL negati ve Not Available [address] [place], [address] 11/28/2023 21:43:16 11/28/19 24 11/28/2023 URINA LYSIS urobilinogen 0.2 mg/dL up to 0.2 Not Available [address] [place], [address] 11/28/2023 21:43:16 11/28/19 24 11/28/2023 URINA LYSIS bilirubin Negati ve negati ve Not Available [address] [place], [address] 11/28/2023 21:43:16 11/28/19 24 11/28/2023 URINA LYSIS blood Negati ve negati ve Not Available [address] [place], [address] 11/28/2023 21:43:16 11/28/19 24 11/28/2023 URINA LYSIS color Yellow yellow Not Available Mohamud roldan [address] [place], [address] 11/28/2023 21:43:17 11/28/19 24 11/28/2023 URINA LYSIS clarity Sl Cloudy clear Not Available [address] [place], [address] 11/28/2023 21:43:17 11/28/19 24 11/28/2023 URINA LYSIS specific gravity 1.020 1.005- 1.025 normal Not Available [address] [place], [address] 11/28/2023 21:43:17 11/28/19 24 11/28/2023 URINA LYSIS pH 5.5 5-8 normal Not Available Mohamud jamar [address] [place], [address] 11/28/2023 21:43:17 11/28/19 24 11/28/2023 URINA LYSIS leukocyte esterase Negati ve negati ve Not Available [address] [place], [address] 11/28/2023 21:43:17 11/28/19 24 11/28/2023 URINA LYSIS nitrite Negati ve negati ve Not Available [address] [place], [address] 11/28/2023 21:43:17 11/28/19 24 11/28/2023 URINA LYSIS protein 30 mg/dL neg-tr lópez abnormal Not Available [address] [place], [address] 11/28/2023 21:43:17 11/28/19 24 11/28/2023 URINA LYSIS glucose Negati ve mg/dL negati ve Not Available [address] [place], [address] 11/28/2023 21:43:17 11/28/19 24 11/28/2023 URINA LYSIS ketones Negati ve mg/dL negati ve Not Available [address] [place], [address] 11/28/2023 21:43:17 11/28/19 24 11/28/2023 URINA LYSIS urobilinogen 0.2 mg/dL up to 0.2 Not Available [address] [place], [address] 11/28/2023 21:43:17 11/28/19 24 11/28/2023 URINA LYSIS bilirubin Negati ve negati ve Not Available [address] [place], [address] 11/28/2023 21:43:17 06/09/11/28/2023 URINA LYSIS blood Negati ve negati ve Not Available [address] [place], [address] 11/28/2023 21:43:17 11/28/19 24 11/28/2023 MICRO SCOPI C FINDI NGS WBC 3-5 hpf 0-5 Not Available Mohamud yangangela [address] [place], [address] 11/28/2023 21:43:17 11/28/19 24 11/28/2023 MICRO SCOPI C FINDI NGS RBC Negati ve hpf 0-2 Not Available [address] [place], [address] 11/28/2023 21:43:17 11/28/19 24 11/28/2023 MICRO SCOPI C FINDI NGS epithelial cells Few hpf negati ve Not Available [address] [place], [address] 11/28/2023 21:43:17 11/28/19 24 11/28/2023 MICRO SCOPI C FINDI NGS bacteria Few hpf negati ve Not Available [address] [place], [address] 11/28/2023 21:43:17 11/28/19 24 11/28/2023 MICRO SCOPI C FINDI NGS crystals Negati ve hpf negati ve Not Available [address] [place], [address] 11/28/2023 21:43:17 11/28/19 24 11/28/2023 MICRO SCOPI C FINDI NGS mucus Negati ve negati ve Not Available [address] [place], [address] 11/28/2023 21:43:17 11/28/19 24 11/28/2023 MICRO SCOPI C FINDI NGS casts Negati ve lpf negati ve Not Available [address] [place], [address] 11/28/2023 21:43:17 11/28/19 24 11/28/2023 MICRO SCOPI C FINDI NGS C S indicated? No Not Available [address] [place], [address] 11/28/2023 21:43:17 11/28/19 24 11/28/2023 TROPO ABEL I troponin I 121 NG/L < or =60 panic high Not Available [address] [place], [address] 11/28/2023 22:28:07 12/13/19 24 12/13/2023 BASIC METAB OLIC PANEL calcium 10.1 mg/dL 8.5-10 .1 normal Not Available [facility] ([facility]) [address] [place] [address] [place], [address], 12/13/2023 10:14:32 12/13/19 24 12/13/2023 BASIC METAB OLIC PANEL glucose 185 mg/dL 74-106 high Not Available [facility] ([facility]) [address] [place] [address] [place], [address], 12/13/2023 10:14:32 12/13/19 24 12/13/2023 BASIC METAB OLIC PANEL BUN 17 mg/dL 7-18 normal Not Available [facility] ([facility]) [address] [place] [address] [place], [address], 12/13/2023 10:14:32 12/13/19 24 12/13/2023 BASIC METAB OLIC PANEL creatinine 1.2 mg/dL 0.55-1 .02 high Not Available [facility] ([facility]) [address] [place] [address] [place], [address], 12/13/2023 10:14:32 12/13/19 24 12/13/2023 BASIC METAB OLIC PANEL estimated GFR 48.39 mL/min /1.73m 2 Not Available [facility] ([facility]) [address] [place] [address] [place], [address], 12/13/2023 10:14:32 12/13/19 24 12/13/2023 BASIC METAB OLIC PANEL sodium 142 mmol/ L 136-14 5 normal Not Available [facility] ([facility]) [address] [place] [address] [place], [address], 12/13/2023 10:14:32 12/13/19 24 12/13/2023 BASIC METAB OLIC PANEL potassium 4.7 mmol/ L 3.5-5. 1 normal Not Available [facility] ([facility]) [address] [place] [address] [place], [address], 12/13/2023 10:14:32 12/13/19 24 12/13/2023 BASIC METAB OLIC PANEL chloride 106 mmol/ L 98-107 normal Not Available [facility] ([facility]) [address] [place] [address] [place], [address], 12/13/2023 10:14:32 12/13/19 24 12/13/2023 BASIC METAB OLIC PANEL CO2 28.7 mmol/ L 21.0-3 2.0 normal Not Available [facility] ([facility]) [address] [place] [address] [place], [address], 12/13/2023 10:14:32 12/13/19 24 12/13/2023 BASIC METAB OLIC PANEL anion gap 7.3 mmol/ L 3-11 normal Not Available [facility] ([facility]) [address] [place] [address] [place], [address], 12/13/2023 10:14:32 12/13/19 24 12/13/2023 TSH (W/RE F FT4) TSH (w/ref FT4) 5.21 uIU/m L 0.36-3 .74 high Not Available [address] [place], [address] 12/13/2023 10:14:32 12/13/19 24 12/13/2023 BASIC METAB OLIC PANEL calcium 10.1 mg/dL 8.5-10 .1 normal Not Available [address] [place], [address] 12/13/2023 10:41:40 12/13/19 24 12/13/2023 BASIC METAB OLIC PANEL glucose 185 mg/dL 74-106 high Not Available [address] [place], [address] 12/13/2023 10:41:40 12/13/19 24 12/13/2023 BASIC METAB OLIC PANEL BUN 17 mg/dL 7-18 normal Not Available [address] [place], [address] 12/13/2023 10:41:40 12/13/19 24 12/13/2023 BASIC METAB OLIC PANEL creatinine 1.2 mg/dL 0.55-1 .02 high Not Available [address] [place], [address] 12/13/2023 10:41:40 12/13/19 24 12/13/2023 BASIC METAB OLIC PANEL estimated GFR 48.39 mL/min /1.73m 2 Not Available [address] [place], [address] 12/13/2023 10:41:40 12/13/19 24 12/13/2023 BASIC METAB OLIC PANEL sodium 142 mmol/ L 136-14 5 normal Not Available [address] [place], [address] 12/13/2023 10:41:40 12/13/19 24 12/13/2023 BASIC METAB OLIC PANEL potassium 4.7 mmol/ L 3.5-5. 1 normal Not Available [address] [place], [address] 12/13/2023 10:41:40 12/13/19 24 12/13/2023 BASIC METAB OLIC PANEL chloride 106 mmol/ L 98-107 normal Not Available [address] [place], [address] 12/13/2023 10:41:40 12/13/19 24 12/13/2023 BASIC METAB OLIC PANEL CO2 28.7 mmol/ L 21.0-3 2.0 normal Not Available [address] [place], [address] 12/13/2023 10:41:40 12/13/19 24 12/13/2023 BASIC METAB OLIC PANEL anion gap 7.3 mmol/ L 3-11 normal Not Available [address] [place], [address] 12/13/2023 10:41:40 12/13/19 24 12/13/2023 TSH (W/RE F FT4) TSH (w/ref FT4) 5.21 uIU/m L 0.36-3 .74 high Not Available [facility] ([facility]) [address] [place] [address] [place], [address], 12/13/2023 10:41:42 12/13/19 24 12/13/2023 FREE T4 free T4 1.04 NG/dL 0.76-1 .46 normal Not Available [address] [place], [address] 12/13/2023 10:41:42 12/13/19 24 12/14/2023 LYME AB W RFLX TO LYME CONFI RM lyme Ab W rflx to lyme confirm Negati ve negati ve Not Available [facility] ([facility]) [address] [place] [address] [place], [address], 12/14/2023 14:48:56 12/13/19 24 12/14/2023 ELECT ROPHO RESIS , SERUM total protein 6.3 g/dL 6.3-8. 2 Not Available [address] [place], [address] 12/14/2023 14:48:58 12/13/19 24 12/14/2023 ELECT ROPHO RESIS , SERUM albumin 60.0 % 55.8-6 6.1 Not Available [address] [place], [address] 12/14/2023 14:48:58 12/13/19 24 12/14/2023 ELECT ROPHO RESIS , SERUM alpha 1 4.9 % 2.9-4. 9 Not Available [address] [place], [address] 12/14/2023 14:48:58 12/13/19 24 12/14/2023 ELECT ROPHO RESIS , SERUM alpha 2 11.4 % 7.1-11 .8 Not Available [address] [place], [address] 12/14/2023 14:48:58 12/13/19 24 12/14/2023 ELECT ROPHO RESIS , SERUM beta 13.4 % 8.4-13 .1 abnormal Not Available [address] [place], [address] 12/14/2023 14:48:58 12/13/19 24 12/14/2023 ELECT ROPHO RESIS , SERUM gamma 10.3 % 11.1-1 8.8 abnormal Not Available [address] [place], [address] 12/14/2023 14:48:58 12/13/19 24 12/14/2023 ELECT ROPHO RESIS , SERUM comment SEE BELOW Not Available [address] [place], [address] 12/14/2023 14:48:58 12/13/19 24 12/14/2023 ELECT ROPHO RESIS , SERUM albumin g/dL 3.8 g/dL 3.6-5. 2 Not Available [address] [place], [address] 12/14/2023 14:48:58 12/13/19 24 12/14/2023 ELECT ROPHO RESIS , SERUM alpha 1 g/dL 0.30 g/dL 0.15-0 .40 Not Available [address] [place], [address] 12/14/2023 14:48:58 12/13/19 24 12/14/2023 ELECT ROPHO RESIS , SERUM alpha 2 g/dL 0.70 g/dL 0.50-1 .00 Not Available [address] [place], [address] 12/14/2023 14:48:58 12/13/19 24 12/14/2023 ELECT ROPHO RESIS , SERUM beta g/dL 0.80 g/dL 0.60-1 .20 Not Available [address] [place], [address] 12/14/2023 14:48:58 12/13/19 24 12/14/2023 ELECT ROPHO RESIS , SERUM gamma g/dL 0.60 g/dL 0.60-1 .60 Not Available [address] [place], [address] 12/14/2023 14:48:58 12/13/19 24 12/14/2023 LYME AB W RFLX TO LYME CONFI RM lyme Ab W rflx to lyme confirm Negati ve negati ve Not Available [address] [place], [address] 12/14/2023 14:48:58 12/13/19 24 12/18/2023 PYRID OXAL 5-VADIM SPHAT E (PLP) , P pyridoxal 5-phosphate (plp), P 4 mcg/L 5-50 abnormal Not Available [address] [place], [address] 12/20/2023 08:23:06 12/30/19 24 12/30/2023 COMPL ETE BLOOD COUNT W/DIF F WBC 8.41 10_3/ uL 4.4-10 .8 normal Not Available [address] [place], [address] 12/30/2023 11:02:48 12/30/19 24 12/30/2023 COMPL ETE BLOOD COUNT W/DIF F RBC 4.73 10_6/ uL 3.93-5 .22 normal Not Available [address] [place], [address] 12/30/2023 11:02:48 12/30/19 24 12/30/2023 COMPL ETE BLOOD COUNT W/DIF F HGB 13.4 g/dL 11.2-1 5.7 normal Not Available [address] [place], [address] 12/30/2023 11:02:48 12/30/19 24 12/30/2023 COMPL ETE BLOOD COUNT W/DIF F HCT 40.8 % 36.0-4 6.0 normal Not Available [address] [place], [address] 12/30/2023 11:02:48 12/30/19 24 12/30/2023 COMPL ETE BLOOD COUNT W/DIF F MCV 86 fL 80-95 normal Not Available Mohamud roldan [address] [place], [address] 12/30/2023 11:02:48 12/30/19 24 12/30/2023 COMPL ETE BLOOD COUNT W/DIF F MCH 28.3 pg 27.0-3 3.0 normal Not Available [address] [place], [address] 12/30/2023 11:02:48 12/30/19 24 12/30/2023 COMPL ETE BLOOD COUNT W/DIF F MCHC 32.8 % 32.0-3 6.0 normal Not Available [address] [place], [address] 12/30/2023 11:02:48 12/30/19 24 12/30/2023 COMPL ETE BLOOD COUNT W/DIF F RDW 13.9 % 11.7-1 4.6 normal Not Available [address] [place], [address] 12/30/2023 11:02:48 12/30/19 24 12/30/2023 COMPL ETE BLOOD COUNT W/DIF F platelet count 270 10_3/ uL 130-40 0 normal Not Available [address] [place], [address] 12/30/2023 11:02:48 12/30/19 24 12/30/2023 COMPL ETE BLOOD COUNT W/DIF F MPV 10.3 fL 8.0-11 .0 normal Not Available [address] [place], [address] 12/30/2023 11:02:48 12/30/19 24 12/30/2023 COMPL ETE BLOOD COUNT W/DIF F neutrophils % 59.1 % Not Available [address] [place], [address] 12/30/2023 11:02:48 12/30/19 24 12/30/2023 COMPL ETE BLOOD COUNT W/DIF F lymphocytes % 30.8 % Not Available [address] [place], [address] 12/30/2023 11:02:48 12/30/19 24 12/30/2023 COMPL ETE BLOOD COUNT W/DIF F monocytes % 7.1 % Not Available [address] [place], [address] 12/30/2023 11:02:48 12/30/19 24 12/30/2023 COMPL ETE BLOOD COUNT W/DIF F eosinophils % 2.1 % Not Available [address] [place], [address] 12/30/2023 11:02:48 12/30/19 24 12/30/2023 COMPL ETE BLOOD COUNT W/DIF F basophils % 0.7 % Not Available [address] [place], [address] 12/30/2023 11:02:48 12/30/19 24 12/30/2023 COMPL ETE BLOOD COUNT W/DIF F immature grans % 0.2 % Not Available [address] [place], [address] 12/30/2023 11:02:48 12/30/19 24 12/30/2023 COMPL ETE BLOOD COUNT W/DIF F nucleated RBC 0.0 % 0.0-0. 3 normal Not Available [address] [place], [address] 12/30/2023 11:02:48 12/30/19 24 12/30/2023 COMPL ETE BLOOD COUNT W/DIF F absolute neutrophil count 4.96 10_3/ uL 1.2-6. 7 normal Not Available [address] [place], [address] 12/30/2023 11:02:48 12/30/19 24 12/30/2023 COMPL ETE BLOOD COUNT W/DIF F absolute lymphocyte count 2.59 10_3/ uL 1.2-3. 4 normal Not Available [address] [place], [address] 12/30/2023 11:02:48 12/30/19 24 12/30/2023 COMPL ETE BLOOD COUNT W/DIF F absolute monocyte count 0.60 10_3/ uL 0.1-0. 8 normal Not Available [address] [place], [address] 12/30/2023 11:02:48 12/30/19 24 12/30/2023 COMPL ETE BLOOD COUNT W/DIF F absolute eosinophil count 0.18 10_3/ uL 0.0-0. 7 normal Not Available [address] [place], [address] 12/30/2023 11:02:48 12/30/19 24 12/30/2023 COMPL ETE BLOOD COUNT W/DIF F absolute basophil count 0.06 10_3/ uL 0.0-0. 2 normal Not Available [address] [place], [address] 12/30/2023 11:02:48 12/30/19 24 12/30/2023 TROPO ABEL I troponin I 126 NG/L < or =60 panic high Not Available [address] [place], [address] 12/30/2023 11:24:47 12/30/19 24 12/30/2023 NT-NH OBNP nt-probnp 1109 pg/mL <300 high Not Available Mohamud roldan [address] [place], [address] 12/30/2023 11:24:48 12/30/19 24 12/30/2023 hemog lobin A1C, finge rstic k hemoglobin A1C 7.9 % <5.7 Not Available [address], [address], 12/30/2023 09:18:44 10/05/19 24 10/05/2023 ICD inter rogat ion, in-pe rson (PROC ) No observ ation record ed. [email or web address] [facility] [address], [place], [address], 10/06/2023 09:44:46 11/28/19 24 11/28/2023 zach daniel Name: Cristino Hart Unit #: [id number] Loc: ER Orderi ng Provid er: Accoun t #: [id number] Status : REG ER Primar y [...] FINDIN GS: ANTERI OR CIRCUL ATION: Right it intern al caroti d artery : Intrac ranial segmen t is patent with no signif icant stenos is. No aneury sm. Right middle cerebr al artery : No occlus ion or signif icant stenos is. No aneury sm. Right anteri or cerebr al artery : No occlus ion or signif icant stenos is. No aneury sm. Left it intern al caroti d artery : Intrac ranial segmen t is patent with no signif icant stenos is. No aneury sm. Left middle cerebr al artery : No occlus ion or signif icant stenos is. No aneury sm. Left anteri or cerebr al artery : No occlus ion or signif icant stenos is. No aneury sm. HUMAN RESOURCE OFFICER IOR CIRCUL ATION: Right verteb ral artery : No occlus ion or signif icant stenos is. No aneury sm. Left verteb ral artery : No occlus ion or signif icant stenos is. No aneury sm. Basila r artery : No occlus ion or signif icant stenos is. No aneury sm. Right reduction plant supervisor ior cerebr al artery : No occlus ion or signif icant stenos is. No aneury sm. Left reduction plant supervisor ior cerebr al artery : No occlus [...] branch es of the anteri or or reduction plant supervisor ior intrac ranial circul ation. 2. No [...] No dissec tion or occlus ion. Right it intern al caroti d artery : No stenos is of the extrac ranial segmen t. No dissec tion or occlus ion. Right liquid compounder al caroti d artery : No occlus ion or stenos is of the origin . Left common caroti d artery : No stenos is. No dissec tion or occlus ion. Left it intern al caroti d artery : No stenos is of the extrac ranial segmen t. No dissec tion or occlus ion. Left liquid compounder al caroti d artery : No occlus [...] segmen ts of the right or left it intern al caroti d arteri es by NASCET criter ia. REFERE NCES: NASCET CRITER IA. The degree of stenos is in the cervic al segmen t of the it intern al caroti d artery is based on NASCET criter ia. Normal is no stenos is. Mild is less than 50% stenos is. Modera te is 50-69% stenos is. Severe is 70% to 99% stenos is. Total occlus ion is no detect able patent lumen. Dictat ed and Ben chaudhari d by: Yohan Jennings MD. Orderi ng:Katherine miller MD Access ion#=[id number] Ordermichelle d By: CC: ------ ------ [...] error, please notify us immedtad obrien at [phone] and return the origin al report to us at the addres s above. Thank- you. [facility] [address], [place], [address] 11/29/2023 09:49:12 11/28/19 24 11/28/2023 vrad repor t Patien t Name: Cristino Hart Unit #: [id number] Loc: ER Orderi ng Provid er: Accoun t #: [id number] Status : REG ER Primar y [...] MD. Orderi ng:Katherine miller MD Access ion#=[id number] Ordere d By: CC: ------ ------ [...] error, please notify us immedi sheltonly at [phone] and return the origin al report to us at the addres s above. Thank- you. [facility] [address], [place], [address] 11/29/2023 09:49:13 11/28/1911/28/2023 vrad repor t Patien t Name: Cristino Hart Unit #: [id number] Loc: ER Orderi ng Provid er: Accoun t #: [id number] Status : REG ER Primar y [...] FINDIN GS: ANTERI OR CIRCUL ATION: Right it intern al caroti d artery : Intrac ranial segmen t is patent with no signif icant stenos is. No aneury sm. Right middle cerebr al artery : No occlus ion or signif icant stenos is. No aneury sm. Right anteri or cerebr al artery : No occlus ion or signif icant stenos is. No aneury sm. Left it intern al caroti d artery : Intrac ranial segmen t is patent with no signif icant stenos is. No aneury sm. Left middle cerebr al artery : No occlus ion or signif icant stenos is. No aneury sm. Left anteri or cerebr al artery : No occlus ion or signif icant stenos is. No aneury sm. HUMAN RESOURCE OFFICER IOR CIRCUL ATION: Right verteb ral artery : No occlus ion or signif icant stenos is. No aneury sm. Left verteb ral artery : No occlus ion or signif icant stenos is. No aneury sm. Basila r artery : No occlus ion or signif icant stenos is. No aneury sm. Right reduction plant supervisor ior cerebr al artery : No occlus ion or signif icant stenos is. No aneury sm. Left reduction plant supervisor ior cerebr al artery : No occlus [...] branch es of the anteri or or reduction plant supervisor ior intrac ranial circul ation. 2. No [...] No dissec tion or occlus ion. Right it intern al caroti d artery : No stenos is of the extrac ranial segmen t. No dissec tion or occlus ion. Right liquid compounder al caroti d artery : No occlus ion or stenos is of the origin . Left common caroti d artery : No stenos is. No dissec tion or occlus ion. Left it intern al caroti d artery : No stenos is of the extrac ranial segmen t. No dissec tion or occlus ion. Left liquid compounder al caroti d artery : No occlus [...] segmen ts of the right or left it intern al caroti d arteri es by NASCET criter ia. REFERE NCES: NASCET CRITER IA. The degree of stenos is in the cervic al segmen t of the it intern al caroti d artery is based on NASCET criter ia. Normal is no stenos is. Mild is less than 50% stenos is. Modera te is 50-69% stenos is. Severe is 70% to 99% stenos is. Total occlus ion is no detect able patent lumen. Dictat ed and Ben davenport by: Yohan Jennings MD. Orderi ng:Katherine miller MD Access ion#=[id number] Andria davenport By: CC: ------ ------ ------ ------ ------ ------ ------ ------ ------ ------ ------ ------ ---- Dictat ed By: Report s vrad 1848 Transc ribed By: Eliana Davis 1846 This is privil eged, confid ential inform ation intend ed only for the provid er named. Any use or distri bution by any person other than this [facility] er is strict ly prohib ited. If you receiv e this report in error, please notify us immedi ately at [phone] and return the origin al report to us at the addres s above. Thank- you. [facility] [address], [place], [address] 11/29/2023 09:49:13 11/29/19 24 11/29/2023 x-ray imagi ng repor t Patien t Name: Cristino Hart Unit #: [id number] Loc: MS Thurman ng Provid er: Charlette Denton Accoun t #: [id number] Status : ADM EJ Primar y [...] at the addres s above. Thank- you. [facility] [address], [place], [address] 11/29/2023 09:49:14 11/29/19 24 11/29/2023 CT imagi ng repor t Patidonald t Name: Cristino Hart Unit #: [id number] Loc: MS Orderi ng Provid er: wy Charlette Saenzoun t #: [id number] Status : DIS EJ Primar y [...] the caroti d bulbs and proxim al it intern al caroti d arteri es there is minima l plaque withou t hemody namica lly signif icant stenos is eviden t. Both it intern al caroti d arteri es are demons trated to be patent in the upper neck and skull base- caroti d canals . Classics Professor ior circul ation: Both verteb ral arteri [...] Brain W: Anteri or circul ation: Both it intern al caroti d arteri es are [...] no aneury sms of these vessel s. Classics Professor ior circul ation: The basila r artery ascend s in the midlin e. Distal ly it gives off patent bilate ral superi or cerebe llar arteri es. Above this level the basila r artery termin ates as patent bilate ral reduction plant supervisor ior cerebr al arteri es. There is also reduction plant supervisor ior commun icatin g artery on the right side of the [place]. There is no eviden ce of aneury sm at the tip of the basila r artery nor elsewh ere in the [place]. CT BRAIN: There is no [...] facili ty are submit ander to the [facility] al Radiol ogy Data Regist ry [...] at the addres s above. Thank- you. [facility] [address], [facility] [place], [address] 11/29/2023 14:50:21 12/30/19 24 12/30/2023 elect steph beatty am No observ ation record ed. [address], [address], 12/30/2023 12:41:49 12/31/19 24 12/31/2023 rhyth m strip , EKG* No observ ation record ed. [email or web address] Not Available 12/31/2023 13:33:00 Result Notes None recorded. Problems Name Status Onset Date Resolution Date Notes Provider Name and Address Organization Details Recorded Time Hyperlipidemi a Active 2005 on repatha, statin intolerant MD [address], [place], [address] , [facility] 4 19:48:59 Rosacea Completed 200307/24/2023 Problem Code: L71.9; Problem Code Type: ICD-10; MD [address], [place], [address] , [facility] 19:37:39 Essential hypertension Active [address], [place], [address] , [facility] 4 19:38:21 Type 2 diabetes mellitus [...] Code Type: ICD-10; MD [address], [facility] [address] , [facility] 4 15:19:41 Allergic rhinitis Completed 201407/24/2023 09/26/2018 Problem Code: J30.9; Problem Code Type: ICD-10; Sameera Short simona, [facility] 4 12:27:18 Mild intermittent asthma Completed 201507/24/2023 Problem Code: J45.20; Problem Code Type: ICD-10; MD [address], [facility] [address] , [facility] 4 19:38:59 Acquired absence of cervix and uterus Completed 201507/24/2023 Problem Code: Z90.710; Problem Code Type: ICD-10; MD [address], [facility] [address] , [facility] 4 19:39:15 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 Statin [...] Code Type: ICD-10; MD [address], [facility] [address] , [facility] 4 13:23:43 Disorder of skin and/or subcutaneous tissue Completed 201701/25/2018 Problem Code: L98.9; Problem Code Type: ICD-10; Not Available [facility] 3 04:19:16 Overflow incontinence of urine Completed 201807/24/2023 Problem Code: N39.490; Problem Code Type: ICD-10; MD [address], [facility] [address] , [facility] 4 19:37:43 Screening mammography Completed 201806/25/2023 Problem Code: Z12.31; Problem Code Type: ICD-10; MD [address], [place], [address] , [facility] 4 19:42:41 Hypercalcemia Active [address], [place], [address] , [facility] 4 19:40:41 Urge incontinence of urine Completed 201807/24/2023 Problem Code: N39.41; Problem Code Type: ICD-10; MD [address], [place], [address] , [facility] 4 19:40:30 History of recurrent pneumonia Completed 201802/14/2019 Problem Code: Z87.01; Problem Code Type: ICD-10; Not Available [facility] 3 04:19:17 Squamous cell carcinoma of skin of face Completed 201907/24/2023 11/29/2019 - Comments only - Franny Davison MD - she will be scheduled for surgery in the near future, recommending holding apixaban 3 days prior to procedure and then restarting, Problem Code: C44.320; Problem Code Type: ICD-10; MD [address], [place], [address] , [facility] 4 19:37:37 Major depression, single episode Completed 201907/24/2023 Problem Code: F32.9; Problem Code Type: ICD-10; MD [address], [place], [address] , [facility] 4 19:37:48 Adjustment disorder with mixed anxiety and depressed mood Completed 201907/24/2023 Problem Code: F43.23; Problem Code Type: ICD-10; MD [address], [place], [address] , [facility] 4 19:39:12 Neuropathy due to type 2 diabetes mellitus Active [address], [address] 4 19:48:19 Proteinuria Completed 202007/24/2023 Problem Code: R80.9; Problem Code Type: ICD-10; MD [address], [address] 4 19:38:51 Hyperparathyr oidism Active [address], [address] 19:40:21 Vitamin B deficiency Active [address], [address] 19:38:27 Chest pain Completed 202107/24/2023 Problem Code: R07.89; Problem Code Type: ICD-10; MD [address], [address] 09:51:51 Essential tremor Active 2021 Stable MD [address], [address] 19:20:59 Abnormal involuntary movement Completed 202107/24/2023 Problem Code: R25.8; Problem Code Type: ICD-10; MD Regan [address], [address] 19:36:57 Screening for cancer Completed 202106/25/2023 Problem Code: Z12.10; Problem Code Type: ICD-10; MD [address], [address] 4 13:23:13 Cough Completed 202106/13/2022 Problem Code: R05.8; Problem Code Type: ICD-10; Not Available [facility] 3 04:19:19 Anesthesia of skin Completed 202206/25/2023 Problem Code: R20.0; Problem Code Type: ICD-10; MD [address], [address] 13:23:29 Ventricular tachycardia Completed 202207/24/2023 Problem Code: I47.20; Problem Code Type: ICD-10; MD [address], [address] 19:37:02 Kidney stone Completed 202207/24/2023 Problem Code: N20.0; Problem Code Type: ICD-10; MD [address], [address] 19:40:33 Syncope and collapse Completed 202207/24/2023 Problem Code: R55; Problem Code Type: ICD-10; MD Regan [address], [address] 19:38:44 History of disorder of digestive system Completed 202207/24/2023 Problem Code: Z87.19; Problem Code Type: ICD-10; MD [address], [address] 4 19:40:17 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 MD [address], [facility] [address] [place] [address] 4 19:47:04 Ulcer of duodenum Completed 202207/24/2023 Problem Code: K26.9; Problem Code Type: ICD-10; MD Regan [address], [address] 4 19:37:54 Hemorrhagic esophagitis Completed 202207/24/2023 Problem Code: K20.91; Problem Code Type: ICD-10; MD Regan [address], [address] 4 19:38:17 Acute posthemorrhag ic anemia Completed 202207/24/2023 Problem Code: D62; Problem Code Type: ICD-10; MD Regan [address], [address] 4 19:37:07 Hypertrophic cardiomyopath y Active [address], [address] 4 19:58:46 Urinary tract infectious disease Completed 201805/08/2019 Problem Code: N39.0; Problem Code Type: ICD-10; Not Available [facility] 3 04:19:23 Right lower quadrant pain Completed 201810/23/2019 Problem Code: R10.31; Problem Code Type: ICD-10; Not Available [facility] 3 04:19:23 Screening for osteoporosis Completed 201705/07/2022 Problem Code: Z13.820; Problem Code Type: ICD-10; Not Available [facility] 3 04:19:23 Breast composition Completed 201404/14/2016 Not Available [facility] 3 04:19:24 Parkinson's disease Completed 202102/03/2022 Problem Code: G20; Problem Code Type: ICD-10; Not Available [facility] 3 04:19:24 Diarrhea Completed 201805/07/2022 Problem Code: R19.7; Problem Code Type: ICD-10; Not Available [facility] 3 04:19:24 Chorea Completed 202004/10/2021 Problem Code: G25.5; Problem Code Type: ICD-10; Not Available [facility] 3 04:19:24 Blood chemistry outside reference range Completed 201609/24/2022 Problem Code: R79.89; Problem Code Type: ICD-10; Not Available [facility] 3 04:19:24 Dyspnea Completed 201810/23/2019 Problem Code: R06.02; Problem Code Type: ICD-10; BHARATH JETT MD [address] [address] , [facility] 4 19:42:49 Chest pain Completed 202004/10/2021 Problem Code: R07.89; Problem Code Type: ICD-10; MD [address] 4 09:51:51 Bleeding from nose Completed 201606/29/2017 Problem Code: R04.0; Problem Code Type: ICD-10; Not Available [facility] 3 04:19:25 Hyperglycemia due to type 2 diabetes mellitus Completed 201504/14/2016 Problem Code: E11.65; Problem Code Type: ICD-10; Not Available [facility] 3 04:19:26 Upper respiratory tract infection caused by Influenza A Completed 202109/08/2022 Problem Code: J09.x2; Problem Code Type: ICD-10; Not Available [facility] 3 04:19:26 Hypertensive disorder Completed 200603/17/2023 Not Available [facility] 3 04:19:26 Type 2 diabetes mellitus Completed 200503/17/2023 Not Available [facility] 3 04:19:27 Adult health examination Completed 201605/19/2017 Problem Code: Z00.00; Problem Code Type: ICD-10; Not Available [facility] 3 04:19:27 Exposure to communicable disease Completed 202011/26/2020 Problem Code: Z20.9; Problem Code Type: ICD-10; Not Available [facility] 3 04:19:27 Bilateral earache Completed 201705/09/2018 Problem Code: H92.03; Problem Code Type: ICD-10; Not Available [facility] 3 04:19:27 Chest pain Completed 202111/03/2021 Problem Code: R07.9; Problem Code Type: ICD-10; MD [address]an [address], [facility] [address] 4 09:51:51 Increased frequency of urination Completed 201502/03/2022 Problem Code: R35.0; Problem Code Type: ICD-10; Not Available [facility] 3 04:19:28 Acute urinary tract infection Completed 202206/25/[address], [facility] [address] [place] [address] 4 13:23:38 Muscle weakness Active 2022 TORY FERGUSON RN [facility], [facility] 3 12:36:18 Screening mammography Completed 201507/24/2023 Problem Code: Z12.31; Problem Code Type: ICD-10; MD Regan [address], [facility] [address] [place] [address] 4 19:42:41 Generalized skin eruption caused by drug and medicament Completed 202207/24/2023 Problem Code: L27.0; Problem Code Type: ICD-10; MD Regan [address], [address] 19:42:34 Candidiasis of vulva Completed 202207/24/[address], [address] 19:40:45 Automatic implantable cardiac defibrillator in situ Active 2022 [employer] Bi-V ICD. Placed 11/2022 at [facility] MD [address], [address] 19:44:34 Dizziness and giddiness Active 2022 Problem Code: R42; Problem Code Type: ICD-10; MD [address]an [address], [address] 19:42:51 Dyspnea Completed 202207/24/2023 Problem Code: R06.09; Problem Code Type: ICD-10; MD Regan [address], [address] 19:42:49 Red blood cell finding Completed 202207/24/2023 Problem Code: R71.8; Problem Code Type: ICD-10; MD Regan [address], [address] 19:42:46 Vulval and/or perineal noninflammato ry disorders Completed 202207/24/2023 Problem Code: N90.89; Problem Code Type: ICD-10; MD Regan [address], [address] [facility] 4 19:42:37 Dysuria Completed 202207/24/2023 Problem Code: R30.0; Problem Code Type: ICD-10; MD Regan [address], [place] [id number] , [facility] 4 19:43:56 Atheroscleros is of coronary artery without angina pectoris Active 2022 s/p HUDSON to RCA MD [address], [place] [address] , [facility] 19:43:[address] Paredes monitoring, concern for Parkinsism, Jay scan 11/09 negative. 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 S/p ICD implantation. MD [address]an [address], [facility] [address] , [facility] 19:46:00 Paroxysmal atrial fibrillation Active [address], [facility] [address] , [facility] 19:46:19 Heart failure with normal ejection fraction Active 2023 NYHA stage 3. Followed by [facility] [facility], Carlos Ha NP, MD [address], [place], [address] , [facility] 4 19:53:02 Dilated cardiomyopath y Active [address], [facility] [address] , [facility] 4 19:46:57 Type II diabetes mellitus uncontrolled Active [address], [facility] [address] , [facility] 4 19:47:49 Type 2 diabetes mellitus [...] Code Type: ICD-10; MD [address]an [address], [place], [address] , [facility] 4 15:19:41 Recurrent urinary tract infection Active 2023 Sameera jarvis, [facility] 4 12:36:35 Memory impairment Active 2023 Sameera jarvis, [facility] 4 12:36:32 Hemiplegia and/or hemiparesis following stroke Active [address], [place], [address] , [facility] 4 07:09:33 Actinic keratosis Active [address], [place], [address] , [facility] 4 07:32:48 Tremor Active 2023 FILOMENA GREGG MA null, [facility] 4 10:14:28 Neuropathic pain Active 2023 FILOMENA GREGG MA null, [facility] 4 10:14:50 Cervical radiculopathy Active 2023 FILOMENA GREGG MA null, [facility] 4 10:15:16 Sciatica Active 2023 FILOMENA GREGG MA null, [facility] 4 10:15:27 Impairment of balance Active 2023 FILOMENA GREGG MA null, [facility] 4 10:16:14 Neuropathy Active [address], [facility] [address] , [facility] 4 11:01:37 Overweight Active [address], [facility] [address] , [facility] 4 09:42:35 Dyspnea on exertion Active [address], [facility] [address] , [facility] 4 09:42:35 Chest pain Active 2023 Problem Code: R07.89; Problem Code Type: ICD-10; MD Regan [address], [facility] [address] , [facility] 4 09:51:51 Problem Notes None recorded. Procedures Surgical History Date Name Laterality Status Provider Name and Address Organization Details Recorded Time 12/09/19 endovascular insertion of drug eluting stent completed MD Regan [address] Dr, [facility] [address], [facility] 07/24/2023 19:50:55 01/20/20 13 Hysterectomy completed BHARATH JETT MD [address], [place], [address], [facility] 07/24/2023 19:39:58 Imaging Results Imaging Date Name Status LastModified by Organization Details LastModified Time 10/05/2023 ICD interrogation, in-person (PROC) [facility] [address], [place], [address], 10/06/2023 09:44:46 11/28/2023 vrad report completed [address] [place], [address] 11/29/2023 09:49:12 11/28/2023 vrad report completed [address] [place], [address] 11/29/2023 09:49:13 11/28/2023 vrad report completed [address] [place] [place], [address] 11/29/2023 09:49:13 11/29/2023 x-ray imaging report completed [facility] [address] [place], [address] 11/29/2023 09:49:14 11/29/2023 CT imaging report completed [address] [place], [address] 11/29/2023 14:50:21 12/30/2023 electrocardiogram completed [address], [address], 12/30/2023 12:41:49 12/31/2023 rhythm strip, EKG* [facility] Inform ation not available 12/31/2023 13:33:00 Procedure Notes None recorded. Medical Equipment None Reported. Allergies Allergen ID Allergen Name Allergen Category Reaction Reaction Severity Criticality Documentation Date Start Date Code Code System Note Provider Name and Address Organization Details Recorded Time 96089 Iodinated contrast media (substanc e) medicatio n Not available Not available Not available 04/30/20232002 79128 2004 SNOMED Aller gyNam e: 'IVP DYE'; Not Available [facility] 3 16:31:18 86208 Product containin g 3-hydroxy -3-methyl glutaryl- coenzyme A reductase inhibitor (product) medicatio n Not available Not available Not available 04/30/20232017 70397 009 SNOMED Not Available [facility] 3 16:31:19 62785 lisinopri l medicatio n cough mild Not available 04/30/20232015 51356 RxNorm cough Aller gyCod e: '3140 76'; Aller gyNam e: 'SARAH NOPRI L'; Aller gyCon ceptT ype: 'RX Norm' ; Not Available [facility] 3 16:31:19 09811 Zetia medicatio n myalgias (muscle pain) mild Not available 04/30/20232006 32024 9 RxNorm MYALG IA Not Available [facility] 3 16:31:20 15790 Plaquenil medicatio n myalgias (muscle pain) mild Not available 04/30/20232006 06467 2 RxNorm MYALG IA Not Available [facility] 3 16:31:20 29048 Cozaar medicatio n Not available Not available Not available 04/30/20232004 73098 8 RxNorm Not Available [facility] 3 16:31:20 23643 atenolol medicatio n cough mild low 05/05/20232022 1202 RxNorm LACEY DORMAN [facility]. 3 12:16:33 36689 acetamino phen / oxycodone medicatio n rash moderate high 05/05/20232022 78629 3 RxNorm LACEY DORMAN [facility]. 3 12:17:17 04639 Plavix medicatio n rash severe high 05/05/20232022 04794 2 RxNorm BHARATH JETT MD [address], [place], [address] , [facility] 4 19:41:48 91129 ticagrelo r medicatio n abdominal pain severe Not available 07/02/20232022 01249 32 RxNorm Aller gyRea ction : 'Carlos Manuel roint estin al,'; Aller gyNam e: 'ILA GRELO R'; Not Available [facility] 4 05:10:26 82788 aspirin medicatio n Not available Not available [facility] 07/23/2023 1191 RxNorm GI bleed BHARATH JETT MD [address], [place], [address] , [facility] 4 19:41:13 34873 Jardiance medicatio n Not available Not available [facility] 07/24/2023 78855 59 RxNorm recur rent yeast infec tions and UTIs BHARATH JETT MD [address], [place], [address] , [facility] 4 19:42:15 Medications Name Sig Start [...] tab by mouth daily 05/10 completed per [facility] Not Available Not Available Not [...] a day 11/17 completed started at [facility] discharg e followin g recurren t TIA [...] nausea and vomiting 11/17 completed Per [facility] ED 11/02/22 Not Available Not Available Not [...] with humalog pen if preferre d by [facility] e ID# [id number] Not Available Not Available Not Available [...] cap by mouth twice daily 01/24 completed [facility] discharg e Not Available Not Available Not [...] Not Available Not Available [employer] Melanie [address] [place] Use as directed active Not Available Not Available No t Available Vitals Date Recorded Body height Body mass index (BMI) Body weight Heart rate Oxygen saturation Oxygen saturation in Arterial blood by Pulse oximetry Body temperature Respiratory rate Systolic blood pressure Diastolic blood pressure Provider Name and Address Organization Details Last Updated DateTime 4 162.56 cm 26.8 kg/m2 99571.4 1 g 82 /min 98 % 98 % 97.9 [degF] 18 /min 126 mm[Hg] 70 mm[Hg] FILOMENA GREGG MA [facility]. 4 15:14:23 Date Recorded Body height Body mass index (BMI) Body weight Body temperature Oxygen saturation Oxygen saturation in Arterial blood by Pulse oximetry Heart rate Respiratory rate Systolic blood pressure Diastolic blood pressure Provider Name and Address Organization Details Last Updated DateTime 4 162.56 cm 26.6 kg/m2 26918.8 2 g 97.9 [degF] 96 % 96 % 73 /min 16 /min 140 mm[Hg] 76 mm[Hg] FILOMENA GREGG MA [facility]. 4 15:19:29 Date Recorded Body height Body mass index (BMI) Body weight Body temperature Oxygen saturation Oxygen saturation in Arterial blood by Pulse oximetry Heart rate Systolic blood pressure Diastolic blood pressure Provider Name and Address Organization Details Last Updated DateTime 4 162.56 cm 26.8 kg/m2 90710.4 1 g 97.8 [degF] 97 % 97 % 71 /min 118 mm[Hg] 70 mm[Hg] FILOMENA GREGG MA [facility] 4 14:04:28 Date Recorded Body height Body mass index (BMI) Body weight Body temperature Oxygen saturation Oxygen saturation in Arterial blood by Pulse oximetry Heart rate Systolic blood pressure Diastolic blood pressure Provider Name and Address Organization Details Last Updated DateTime 4 162.56 cm 26.9 kg/m2 47263 g 97.8 [degF] 96 % 96 % 101 /min 140 mm[Hg] 86 mm[Hg] FILOMENA GREGG MA [facility] 4 08:25:36 Date Recorded Body height Body mass index (BMI) Body weight Body temperature Oxygen saturation Oxygen saturation in Arterial blood by Pulse oximetry Heart rate Systolic blood pressure Diastolic blood pressure Provider Name and Address Organization Details Last Updated DateTime 4 162.56 cm 23.7 kg/m2 25440.7 5 g 97.1 [degF] 97 % 97 % 70 /min 130 mm[Hg] 72 mm[Hg] PHYLLIS CARRASCO MA [facility] 4 09:08:21 Social History Question Answer Notes LastModified by Organizat ion Details LastModified Time Tobacco Smoking Status Never Smoker PHYLLIS CARRASCO MA [facility], [facility] 05/05/2023 13:38:34 What Is Your Level Of Alcohol Consumption? None Information not available 05/05/2023 Date Care Plan Printed: 08/12/2023 First Printed 04/26/23 (old System) Information not available 08/12/2023 Assigned Clinical Case Manager: Leisa Segovia Information not available 08/12/2023 [facility] Lead Clinical Case Manager? Yes Information no t available 08/12/2023 Level [...] preservative free, adsorbed 08/05/2021 completed Not Available [facility] 04/30/2023 05:10:29 Tdap 12/18/2011 completed Not Available [facility] 05:10:29 zoster live 07/12/2012 completed Not Available [facility] 04/30/2023 05:10:29 Pneumococcal conjugate PCV 13 06/29/2017 completed Not Available [facility] 04/30/2023 05:10:29 Influenza, high-dose, trivalent, PF 05/09/2018 completed Not Available [facility] 04/30/2023 05:10:29 Td(adult) unspecified formulation 10/01/2005 completed Not Available [facility] 04/30/2023 05:10:30 Td(adult) unspecified formulation 12/18/2011 completed Not Available [facility] 04/30/2023 05:10:30 Td(adult) unspecified formulation 04/06/1996 [...] high-dose, quadrivalent, PF 04/21/2022 completed Not Available [facility] 04/30/2023 05:10:32 COVID-19, mRNA, LNP-S, PF, 100 mcg/0.5mL dose or 50 mcg/0.25mL dose 11/03/2021 completed Not Available [facility] 04/30/2023 05:10:32 COVID-19, mRNA, LNP-S, PF, 30 mcg/0.3 mL dose 08/19/2020 completed Not Available [facility] 04/30/2023 05:10:32 COVID-19, mRNA, LNP-S, PF, 30 mcg/0.3 mL dose 09/16/2020 completed Not Available [facility] 04/30/2023 05:10:32 COVID-19, mRNA, LNP-S, PF, 30 mcg/0.3 mL dose 04/10/2021 completed Not Available [facility] 04/30/2023 05:10:33 COVID-19, mRNA, LNP-S, bivalent, PF, 30 mcg/0.3 mL dose 05/07/2022 completed Not Available [facility] 04/30/20 05:10:33 pneumococcal polysaccharide PPV23 09/26/2018 completed Not Available [facility] 2022 05:10:34 pneumococcal polysaccharide PPV23 04/06/1996 completed Not Available [facility] 2022 05:10:34 influenza, unspecified formulation 03/04/2020 completed Not Available [facility] 04/30/2023 05:10:34 Influenza, high-dose, quadrivalent, PF 03/05/2023 completed Not Available [facility] 07/02/2023 05:30:45 COVID-19, mRNA, LNP-S, PF, arthur-sucrose, 30 mcg/0.3 mL 03/25/2023 completed Not Available [facility] 07/02/2023 05:30:45 Past Encounters Encounter ID Performer Location Encounter Start Date Encounter Closed Date Diagnosis/Indication Diagnosis SNOMED-CT Code [id number] GRETCHEN RAMAN MD [address] [address] 05/05/2023 13:20:35 05/05/2023 13:57:54 Overflow incontinence of urine 514095010 Acute urin georgina tract infection 897015340 [id number] BHARATH JETT MD [address] [address] 06/25/2023 10:10:16 06/25/2023 12:13:36 Type 2 diabetes mellitus without complication 716507215 Hyperlipidemia 29229976 [id number] BHARATH JETT MD [address] [address] 07/23/2023 10:26:38 07/23/2023 12:08:42 Dizziness and giddiness 083862708 Type 2 bob betes mellitus without complication 972782476 Hyperlipidemia 76627716 [id number] BHARATH JETT MD [address] [address] 08/23/2023 14:59:40 08/23/2023 15:57:14 Type II diabetes mellitus uncontrolled 456432343 Dilated cardiomyopathy 573820180 Hyperlipidemia 77338558 Atheroscle rosis of coronary artery without angina pectoris 396084331433340 [id number] BHARATH JETT MD [address] [address] 10/04/2023 15:05:30 10/04/2023 16:32:57 Type II diabetes mellitus uncontrolled 630169970 Memory impairment 633008 124 [id number] BHARATH JETT MD [address] [address] 11/03/2023 13:46:57 11/03/2023 14:49:28 Type II diabetes mellitus uncontrolled 230017552 Heart fail ure with normal ejection fraction 978332940 Hemiplegia and/or hemiparesis following stroke 99546573822653 Bradykinesia 349919651 Memory impairment 264856 006 Actinic keratosis 136462 496 [id number] BHARATH JETT MD [address] [address] 12/06/2023 08:09:33 12/06/2023 09:15:34 Neuropathy 719643854 [id number] BHARATH JETT MD [address] [address] 12/30/2023 08:53:35 12/30/2023 10:43:36 Type II diabetes mellitus uncontrolled 103039600 Overweight 159582071 Dyspnea on exertion 6084 5006 Goals Section [...] Acharya Member ID Guarantor Name 08/23/2023 1 [facility] (MEDICARE REPLACEMENT/A DVANTAGE - PPO) [id number] Joanna M Tanner [id number] Joanna M Tanner 10/04/2023 1 [facility] (MEDICARE REPLACEMENT/A DVANTAGE - PPO) [id number] Joanna M Tanner [id number] Joanna M Tanner 11/03/2023 1 [facility] (MEDICARE REPLACEMENT/A DVANTAGE - PPO) [id number] Joanna M Tanner [id number] Joanna M Tanner 12/06/2023 1 [facility] (MEDICARE REPLACEMENT/A DVANTAGE - PPO) [id number] Joanna M Tanner [id number] Joanna M Tanner 12/30/2023 1 [facility] (MEDICARE REPLACEMENT/A DVANTAGE - PPO) [id number] Joanna M Tanner [id number] Joanna M Tanner Notes Date Note Type [...] cardiology follow up soon. Has tony lucas, [employer] is working on helping her learn how to use this. MD Regan [address], [place], [address], [facility]. 08/23/2023 16:37:27 10/04/2023 text/html HPI Notes: Cristino [...] cardiac rehab but plans to continue paying [id number] to keep going. She has really enjoyed [...] treated right now. MD Regan [address], [place], [address], [facility], [facility]. 10/05/2023 14:54:02 11/03/2023 text/html HPI Notes: [...] graduated cardiac rehab but continues to pay [id number] to keep going. She has really enjoyed [...] appointment. BHARATH JETT MD [address], [place], [address], [facility]. 11/04/2023 07:33:39 12/06/2023 text/html HPI Notes: Cristino martinez presents for hospital f/u. She was admitted to [facility] from 11/27-11/29/23 for stroke rule out. 30 [...] did not start the aspirin because her picture engraver told her not to. She has a [...] her morning medications. MD Regan [address], [place], [address], [facility]. 12/06/2023 11:09:04 12/30/2023 text/html HPI Notes: Cristino [...] 90% stenosis of RCA found on angiography. [facility] completed 12/08/22 with successful RCA stenting. - HCM severe asymmetric hypertrophy of LV with septal thickness 1.7 cm. ACC Stage C, NYHA III HFpEF - NSVT. s/p Medtronic Bi-V ICD implant. - PAF. 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 MD Regan [address], [place], [address], [facility]. 12/30/2023 10:50:17 OBGyn Episode No OBEpisode recorded.
[2024-01-14 11:07] VITALS: BP 151/75; PULSE 73
--- OUTSIDE RECORDS SUMMARY | 2024-01-14 11:07 | XMS_ITS | Encounter Summary ---
Author Organization [facility] Address [address] [place] [address] Care Team Providers Care Chef Broiler Or Fry Name Role Phone Bryant Crain MD Primary Care Provider [phone] Carlos Ha ENGRAVING PRESS OPERATOR Unavailable [phone] Reason for Visit * Reason Comments Follow-up Encounter Details Date Type Department Care Team (Late st Contact Info) Description 04/15/2023 10:00 EDT Telemedicine [facility] Cardiology Clinic [address] [place] [address] Carlos Ha, ENGRAVING PRESS OPERATOR [address] [facility] [address] [place] [address] Drug rash (Primary Dx) Social [...] this encounter Progress Notes * Carlos Ha, ENGRAVING PRESS OPERATOR - 04/15/[address] [facility] Telephone Visit The concept [...] History: Diagnosis Date ??? Cerebrovascular accident (CVA) ([facility]) 06/01/2019 ??? Diabetes mellitus, type 2 ([facility]) 01/26/2011 On metformin On metformin ??? Essential hypertension 06/01/2019 ??? Mixed hyperlipidemia 06/05/2019 ??? Nonrheumatic aortic valve stenosis 06/01/2019 ??? Paroxysmal atrial fibrillation ([facility]) 06/01/2019 SH/FH: reviewed and updated MEDICATIONS: Medications Prior to Today's Visit Medication Sig ??? acetaminophen (TYLENOL) 650 mg CR tablet 2 tab(s) orally twice a day, only as needed ??? apixaban (ELIQUIS) 5 mg tablet Take 1 Tablet by mouth 2 times daily. ??? BD ULTRA-FINE MICRO PEN NEEDLE 32 gauge x 1/4 needle ??? blood glucose meter by [facility] (non-drug; combo route) route daily. One touch [...] glucose scanning reader (FREESTYLE VICKY 2 READER) [facility] 1 Device by [facility] (non-drug; comboroute) route daily. Dispense one reader [...] ??? lancets/blood glucose strips (ONE TOUCH COMBO [facility]) -to test blood [...] ??? Propoxyphene N-Acetaminophen Other reaction(s): Hallucinations ??? Bslmtqj-Aom-Wqv Reductase Inhibitors ??? Trulicity [Dulaglutide] Gi Side [...] tolerated. Will follow up withCardiology team at [facility] as she is only 4 mos post [...] tolerated. Will follow up withCardiology team at [facility] as she is only 4 mos post [...] Info) Description 03/08/2024 9:30 EDT Ancillary Procedure [facility] Cardiology - [facility] [address] [place] [address] 03/08/2024 10:15 EDT Ancillary Procedure [facility] Cardiology [address] [place] [address] 04/05/2024 10:00 EDT Ancillary Procedure [facility] Cardiology Clinic [address] [place] [id number] 04/05/2024 10:00 EDT Office Visit [facility] [address] [place] [phone] Carlos Ha NP [address] [place] [phone] documented as of this encounter Visit Diagnoses Diagnosis Drug rash- Primary Dermatitis due to drugs and medicines taken internally documented in this encounter Care Teams Chef Broiler Or Fry Relationship Specialty Start Date End Date Bryant Crain MD [address] [place], [place] [id number] PCP - General 05/04/15 05/17/23 Carlos Ha NP [address] [place] [address] Consulting Clinician Cardiovascular Disease 09/14/21 documented as of this encounter
--- OUTSIDE RECORDS SUMMARY | 2024-01-14 11:07 | XMS_ITS | Encounter Summary ---
Author Organization [facility] Address [address] [place] [address] Care Team Providers Care Trial Management Associate Name Role Phone Carlos Ha COMMERCIAL PROPERTY MANAGER Unavailable [phone] Elba Jett MD Primary Care Provider [phone] Reason for Visit * (Routine/Next Available) - Authorization Not Required Specialty Diagnoses / Procedures [facility] Referred To Contact Diagnoses Cardiomyopathy ([facility]) Procedures CARDIAC IMPLANT CHECK - IN CLINIC Carlos Ha NP [address] [facility] [address] [address] [facility] Referral ID Status Reason Start Date Expiration Date Visits Requested Visits Authorized [id number] Authorization Not Required 09/28/2023 36 36 Encounter Details Date Type Department Care Team (Late st Contact Info) Description 10/05/2023 15:00 EDT Ancillary Procedure [facility] Cardiology Clinic [address] [place] [address] Social History Tobacco Use Types [...] 03/08/2024 9:30 EDT Ancillary Procedure [facility] Cardiology - [place] [address] [place] [phone] 03/08/2024 10:15 EDT Ancillary Procedure [facility] Cardiology [place] [address] [place] [address] 04/05/2024 10:00 EDT Ancillary Procedure [facility]iology [facility] [address] [place] [phone] 04/05/2024 10:00 EDT Office Visit [facility] [address] [place] [address] Carlos Ha NP [address] [place] [address] [address] [place] [address] documented as of this encounter [...] filedocumented in this encounter Care Teams Trial Management Associate Relationship Specialty Start Date End Date Elba Jett MD [address] [place] [phone] PCP - General Family Medicine - Primary Care 05/18/23 Carlos Ha NP [address] [place] [address] [address] [place] [phone] Consulting Clinician Cardiovascular Disease 09/14/21 documented as of this encounter
--- OUTSIDE RECORDS SUMMARY | 2024-01-14 11:07 | XMS_ITS | Referral Summary ---
Author Organization [facility] Address [address] [place] [address] Care Team Providers Care Academic Administrator Name Role Phone Carlos Ha HUB BANDER Unavailable [phone] Elba Jett MD Primary Care Provider [phone] Encounters Date Type Department Care Team Description 12/13/2023 Lab Requisition [facility] Pathology & Laboratory Medicine - [facility] [address], [place] [id number] Outr Resulting Lab, Provider from Last 3 [...] 05/18/2023 Propoxyphene N-Acetaminophen 01/27/2011 Other reaction(s): Hallucinations Fmtoqzo-Poo-Pci Reductase Inhibitors 01/18/2020 Dulaglutide 07/10/2020 Gi Side effect Medications Medication Sig Dispensed Refills Start Date End Date Status lancets/blood glucose strips (ONE TOUCH COMBO [facility] -to test blood sugar - twice daily [...] hyperglycemia, with long-term current use of insulin ([facility]) by [facility] (non-drug; combo route) route daily. One touch verio meter or best covered by insurance. 1 Each 10/02/2020 Active flash glucose scanning reader (FREESTYLE VICKY 2 READER) [facility] 1 Device by [facility] (non-drug; combo route) route daily. [...] t be different from the original. 2021-09-16 [facility] MGP Verbal BRUNA: permission to speak with Lefty Gomez Tanner (.) Patient has given permission for [facility] to verbally discuss the following information [...] if rash returns. PAF (paroxysmal atrial fibrillation) ([facility]) 0 02/16/2023 ASCVD (arteriosclerotic cardiovascular disease) 12/08/2022 Chronic heart failure with p reserved ejection fraction ([facility]) 12/01/2022 AVB (atrioventricular block) 11/24/2022 Gastrointestinal hemorrhage 11/11/2022 Fatigue 12/04/2020 Last Assessment & Plan: ?cardiac vs orthostatic hypotension vs glucose regulation. Has upcoming ECHO scheduled. Discussed checking BP at home with lightheadedness. Has upcoming visit with PCP for further w/up. Will reach out to boat mechanic as well. We did discuss giving her body time to adjust to BG's normalizing, did lower lantus and humalog today. Osteopenia after menopause 10/02/2020 Last Assessment & Plan: Get updated DEXA scan at same clinic [facility]. Ordered faxed. Request disk of images to bring to next visit. Continue with DEXA every 2 years. Hypercalcemia 10/02/2020 Last Assessment & Plan: Stable. Primary hyperparathyroidism ([facility]) 10/02/2020 Last Assessment & Plan: Encouraged to increase hydration 5-6 bottles water/day, this can include tea/crystal light. Will check calcium levels yearly, more often with change in kidney function. Stage 3b chronic kidney disease ([facility]) 2020 Last Assessment & Plan: Stable. Dilated cardiomyopathy ([facility]) 02/23/2020 Last Assessment & Plan: Improved EF on echo 11/2020 (55%) Ventricular tachycardia ([facility]) 11/23/2019 Last Assessment & Plan: No further [...] current dose of Repatha Cerebrovascular accident (CVA) ([facility]) Current use of senior living 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 Last Assessment & Plan: Patient is taking and tolerating apixaban without overt signs of bleeding. Will check labs including renal function today. 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 is taking and tolerating Eliquis without overt signs of bleeding Essential hypertension 06/01/2019 Last Assessment & Plan: Relatively well controlled Paroxysmal atrial fibrillation ([facility]) Last Assessment & Plan: She is appropriately anticoagulated for stroke risk reduction. Diabetes mellitus, type 2 ([facility]) 01/26/2011 Overview: On metformin On metformin Last [...] persistently or elevations >200. MALB today. Given [facility] HAP program info to see if qualifies. Rosacea 01/26/2011 Overview: previously on Elidel previously on Elidel Duodenal erosion Esophagitis Blood loss anemia Hypertrophic cardiomyopathy ([facility]) Edema of right lower extremity Resolved Problems Problem Noted Date Diagnosed Date Resolved Date NSTEMI (non-ST elevated myoc ardial infarction) ([facility]) 12/02/2022 01/05/2023 Elevated troponin 11/24/2022 01/05/2023 Dyslipidemia [...] 11/14/2022 NSTEMI (non-ST elevated myoc ardial infarction) ([facility]) 12/07/2022 Chest pain 01/05/2023 Social History Tobacco [...] Info) Description 03/08/2024 9:30 EDT Ancillary Procedure [facility] [address] [place] [address] 03/08/2024 10:15 EDT Ancillary Procedure [facility] [address] [place] [address] 04/05/2024 10:00 EDT Ancillary Procedure [facility] [address] [place] [phone] 04/05/2024 10:00 EDT Office Visit [facility] [address] [place] [phone] Carlos Ha NP [address] [place] [address]- [address] [place] [phone] Medical Devices Implanted Type Area Grain Elevator Man Device Identifier Shelf Expiration Date Model / Serial / Lot Defibrillator Multi Chamber Silk Spreader D Mri Comp [id number] Amplia [id number] - [id number] Implanted:Qty: 1 on 03/15/2023 by Lefty Moss MD at [facility] ICD Left: Chest [employer] [id number] 05/04/2024 [id number] / [id number] / Cardiac Lead Icd Tripolar Endocardium [id number] Sprint Quattro [id number] - [id number] Implanted:Qty: 1 on 03/15/2023 by Lefty Moss MD at [facility] Lead Left: Heart [employer] [id number] 10/28/2024 [id number] 5 / [id number] 7V / Lead Pacemaker Endocardial Biplr Act Fixtn [id number] [id number] - [id number] Implanted:Qty: 1 on 03/15/2023 by Lefty Moss MD at [facility] Lead Left: Heart [employer] [id number] 01/19/2025 3830-6 9C M / [id number] 3V / Lead Pacemaker Endocardial Biplr Act Fixtn [id number] Capsurefix Novus [id number] - [id number] Implanted:Qty: 1 on 03/15/2023 by Lefty Moss MD at [facility] Lead Left: Heart [employer] [id number] 07/09/2024 5076-4 5 / [id number] 2V / Stent System 3.50mm X 33mm Rapid Exchange Xience Skypoint Everolimus Eluting Coronary - [id number] Implanted:Qty: 1 on 12/08/2022 by Edgardo Ha MD at [facility] Stent Right: Coronary [employer] [id number] / / Description:Mid RCA Procedures Procedure [...] HEMOGLOBIN A1C Routine 11/11/2022 13:24 EDT URINE [id number] RATIO (ACR) Routine 08/05/2021 15:07 EST Type 2 diabetes mellitus with hyperglycemia, with long-term current use of insulin ([facility]) ([facility]) from Last 3 Months or Most Recently Relevant to Health Maintenance Results * (ABNORMAL) SPEP, INCLUDES QUANTITATION OF MONOCLONAL SPIKE PERFORMABLE (12/13/2023 9:14 EDT) Albumin % 60.0 55.8 - 66.1 % 12/14/2023 12:34 [facility] Albumin g/dL 3.8 3.6 - 5.2 g/dL 12/14/2023 12:34 [facility] Alpha-1 % 4.9 2.9 - 4.9 % 12/14/2023 12:34 [facility] Alpha-1 g/dL 0.30 0.15 - 0.40 g/dL 12/14/2023 12:34 [facility] Alpha-2 % 11.4 7.1 - 11.8 % 12/14/2023 12:34 [facility] Alpha-2 g/dL 0.70 0.50 - 1.00 g/dL 12/14/2023 12:34 [facility] Beta % 13.4(H) 8.4 - 13.1 % 12/14/2023 12:34 [facility] Beta g/dL 0.80 0.60 - 1.20 g/dL 12/14/2023 12:34 [facility] Gamma % 10.3(L) 11.1 - 18.8 % 12/14/2023 12:34 [facility] Gamma g/dL 0.60 0.60 - 1.60 g/dL 12/14/2023 12:34 [facility] SPEP Comment No apparent monoclonal protein seen on serum electrophoresis 12/14/2023 12:34 [facility] Comment:See scanned/suppleme ntary report. Total Protein 6.3 6.3 - 8.2 g/dL 12/14/2023 12:34 [facility] Blood VENOUS BLOOD / Unknown 12/13/2023 9:14 EDT 12/13/2023 17:12 EDT Provider Outr Resulting Lab CHEMISTRY & BLOOD GAS ORDERABLES Performing Organization Address [facility] Co de Phone Number [facility] [address] [place] [address] * LYME AB (12/13/2023 9:14 EDT) Pathologist [facility] Ab Negative Negative 12/14/2023 13:36 EDT [facility] Blood VENOUS BLOOD / Unknown 12/13/2023 9:14 EDT 12/13/2023 17:12 EDT Provider Outr Resulting Lab IMMUNOLOGY A ND SEROLOGY ORDERABLES Performing Organization Address [facility] de Phone Number [facility] [address] [place] [phone] * PROTEIN, TOTAL (12/13/2023 9:14 EDT) Blood VENOUS BLOOD / Unknown 12/13/2023 9:14 EDT 12/13/2023 17:12 EDT Provider Outr Resulting Lab CHEMISTRY & BLOOD GAS ORDERABLES Performing Organization Address [facility] de Phone Number [facility] [address] [place] [phone] * (ABNORMAL) LIPID PROFILE (INCLUDES CHOLESTEROL, TRIGLYCERIDES, HDL, LDL) (12/03/2022 23:53 EDT) [facility] Cholesterol 107 <200 mg/dL 12/04/2022 0:16 EDT [facility] Comment:Note that therapeuti c goals will differ between patients based on cardiac risk factors and current medical therapy. HDL 40(L) >=50 mg/dL 12/04/2022 0:16 T [facility] Comment:Note that therapeuti c goals will differ between patients based on cardiac risk factors and current medical therapy. LDL, Calculated 29 <160 mg/dL 0:16 EDT [facility] Comment:Note that therapeuti c goals will differ between patients based on cardiac risk factors and current medical therapy. Triglyceride 188(H) <=150 mg/dL 12/04/2022 0:16 EDT [facility] Comment:Note that therapeuti c goals will differ between patients based on cardiac risk factors and current medical therapy. Chol/HDL Ratio 2.7 See Note 12/04/2022 0:16 EDT [facility] Comment:No reference range h as been established for CHOL/HDL ratio. Non HDL Cholesterol 67 <160 mg/dL 12/04/2022 0:16 EDT [facility] Comment:Note that therapeuti c goals will differ between patients based on cardiac risk factors and current medical therapy. Blood VENOUS BLOOD / Unknown Venipuncture / Unknown 12/03/2022 23:53 EDT 12/04/2022 0:00 EDT Darion Tinajero MD CHEMISTRY & BLOOD GA S ORDERABLES Performing Organization Address [facility] de Phone Number [facility] [address] [place] [phone] * (ABNORMAL) HEMOGLOBIN A1C (11/11/2022 13:24 EDT) Hemoglobin A1c 7.1(H) <5.7 % 11/11/2022 16:36 EDT [facility] Comment: Glycemic Status References: Normal: ??<5.7% Pre-Diabetes: ??5.7% - 6.4% Diagnostic of Diabetes: ??> or = 6.5% (if confirmed) Est Avg Glucose 157 mg/dL 16:36 EDT [facility] Comment:The eAG represents t he A1c result expressed as average glucose in mg/dL. Blood VENOUS BLOOD / Unknown IV Draw / Unknown 11/11/2022 13:24 EDT 11/11/2022 13:35 EDT Stephon Sosa CHEMISTRY & BLOOD GA S ORDERABLES Performing Organization Address [facility] Co de Phone Number [facility] [address] [place] [address] * (ABNORMAL) URINE [id number] RATIO (ACR) (08/05/2021 15:07 EST) Albumin, Urine 47.2 See Note mg/dL 2021 18:46 EST [facility] Comment: NOTE: Reference range not established Creatinine, Urine 102.8 See Note mg/dL 08/05/2021 18:46 EST [facility] Comment: NOTE: Reference range [...] & BLOOD GAS ORDERABLES Performing Organization Address City/State/[facility] Co de Phone Number [facility] [address] [place] [address] from Last 3 Months or Most Recently Relevant to [place] [address] Joanna Hart Personal/Family Self 1950 [address] [facility] [place] [address] Joanna Hart Personal/Family Self [address] [place] [address] [place] [address] Joanna Hart Personal/Family Self [address] [place] [address] [place] [address] Advance Directives For more information, please contact: [phone] Documents on File Type Date Recorded Patient Any Commodity Sales Deliverer Expl anation Advance Directive 11/19/2022 11:05 [place] [...] Made the Decision? Default/Not Discussed Care Teams Academic Administrator Relationship Specialty Start Date End Date Elba Jett MD [address] [place] [phone] PCP - General Family Medicine - Primary Care 05/18/23 Carlos Ha NP [address] [place] [address] [address] [place] [phone] Consulting Clinician Cardiovascular Disease 09/14/21
--- OUTSIDE RECORDS SUMMARY | 2024-01-14 11:07 | XMS_ITS | Encounter Summary ---
Author Organization [facility] Address [address] [place] [address] Care Team Providers Care Side Puller Name Role Phone Carlos Ha PIG BREEDER Unavailable [phone] Elba Jett MD Primary Care Provider [phone] Reason for Visit * Reason Comments Pacemaker/Device Check Medtronic Encounter Details Date Type Department Care Team (Latest Contact Info) Description 06/03/2023 11:30 EST Office [facility] [address] [place] [address] Carlos Ha, PIG BREEDER [address] [facility] [address] [place] [address] Chronic heart failure with preserved [...] this encounter Progress Notes * Carlos Ha, PIG BREEDER - 06/03/2023 1130 EST CC: Pacemaker/Device Check [...] but was cancelled as she presented to [facility] ED on the day it was scheduled. She presented to [facility] on with complaints of fatigue, chest tightness, [...] and octreotide. She was then transferred to [facility]. Repeat EDG showed esophagitis, scattered petechia [...] NSTEMI. She was transferred to [facility] for LHC 12/08/2022 with severe single vessel [...] She is off Plavix and tolerating losartan [facility] Cryptogenic stroke (left MCA) 2016 with Medtronic loop 2016. ASA recently started during admission at [facility] 08/2022 Paroxysmal atrial fibrillation (2 hr episode noted on monitor 2018.Started on Eliquis. No further episodes noted) NSVT (1 episode August 2019 with negative MPI) AVB type I and II - noted on monitoring and evaluation advisor during recent admission Hypertension, Hyperlipidemia (LDL 65 in 2021: She has been intolerant to multiple statins now on REPATHA) DM2 (A1C 7.1) CKD III Kidney stone 11/02 passed Duodenal ulcer and esophagitis with acute GIB admit to [facility] 11/11-11/14. D/C on Protonix. ?Parkinson's Disease HCM -septal thickness 17 mm with very high burden LGE on MRI, epsides of NSVT. SH Lives in [place] with spouse Has three grown children She [...] x 1/4 needle blood glucose meter by [facility] (non-drug; combo route) route daily. One touch [...] VICKY 2 READER) mis 1 Device by [facility] (non-drug; combo route) route daily. Dispense one [...] tablet Take 0.5 Tablets by mouth daily. [employer] No facility-administered medications prior to visit. ALLERGIES: [...] Plavix [Clopidogrel] Propoxyphene N-Acetaminophen Other reaction(s): Hallucinations Hwlwbpu-Xjp-Mjq Reductase Inhibitors Trulicity [Dulaglutide] Gi Side effect [...] EXAM: Alert and oriented x3. Gait normal [facility] Device Visit Certified Coding Specialist: [employer]tr[employer] Device Type: Multiple BODY TRIMMER UPHOLSTERER-D Service: Office Visit Implant Date: 03/15/2023 Indication: [...] CDI, well approximated and without erythema/tenderness/drainage DATA: RI PET 12/07/2022 Perfusion: There was a moderate [...] dilation (TID) with a value of 1.4 [facility] 12/08/2022 CORONARY ARTERIES: The coronary [...] from base to apex. The distal apex ([id number]) is concentrically involved by delayed enhancement. Left [...] 90% stenosis of RCA found on angiography. [facility] completed 12/08/22 with successful RCA stenting. -Off Plavix. Rash improved. -Continue BB and Repatha -Reports feeling clinically improved. Will plan to refer back to Cardiac Rehab 2. HCM severe asymmetric hypertrophy of LV with septal thickness 1.7 cm. ACC Stage C, NYHA III HFpEF -Genetic testing pending -Low dose BB. Spironolactone up titrated to 25 mg daily -Improved symptoms with Bi-V ICD BODY TRIMMER UPHOLSTERER 3. NSVT. -Medtronic Bi-V ICD implant. No [...] Ancillary Procedure [facility] Cardiology [place] [address] [place], [place] [phone] 03/08/2024 10:15 EDT Ancillary Procedure [facility] Cardiology [place] [address] [place] [address] 04/05/2024 10:00 EDT Ancillary Procedure [facility] Cardiology Clinic [address] [place] [address] 04/05/2024 10:00 EDT Office Visit [facility] Cardiology [facility] [address] [place] [phone] Carlos Ha NP [address] [place] [address] [facility] [place] [phone] documented as of this encounter Visit Diagnoses [...] 06/03/2023 documented in this encounter Care Teams Side Puller Relationship Specialty Start Date End Date Elba Jett MD [address] [place] [phone] PCP - General Family Medicine - Primary Care 05/18/23 Carlos Ha NP [address] [place] [address] [address] [place] [address] Consulting Clinician Cardiovascular Disease 09/14/21 documented as of this encounter
--- OUTSIDE RECORDS SUMMARY | 2024-01-14 11:07 | XMS_ITS | Continuity of Care Document ---
Author Organization [facility] Address [address] [place] [address] Care Team Providers Care Floating Operator Name Role Phone [facility] OTHER BHARATH JETT Primary Care Provider LEISA SEGOVIA OTHER Assessment Encounter Date Assessment Date Assessment LastModified by Organization Details LastModified Time 11/03/2023 11/03/2023 The total time devoted to today's encounter, including both the [id number] time with the patient and/or family/caregi pam and qjn-idie-lu-f lópez time I personally spent is 37 minutes. [facility] Not available 11/04/2023 07:33:34 Plan of Treatment Reminders Order Date Submit Date Provider Last Modified By Organization Details Last Modified Time Details Appointments Medical Nutritio n Therapy 90 2023 11:00A M Isatu Yo Not available Not available Not available Annual Chronic Care (65+) 40 2023 02:40P Naman Jett Not available Not available Not available Lab hemoglob in A1C, fingerst ick 2023 024 [facility], [address] [place] [address], [address], 11/03/2023 14:49:34 Referral optometr ist referral - once visit is complete please send us the visit notes 2023 024 [email or web address] [facility] - [address] [place], [address], 01/10/2024 14:14:27 Procedures None recorded . Surgeries None recorded . Imaging None recorded . Medication Orders None recorded . Patient TargetsNo targets recorded. Patient InstructionsNo instructions recorded. Reason for Referral Diabetic Nutrition Education Referral for Type II diabetes mellitus uncontrolled assist with new CGM Referring Physician: Bharath Jett, [facility], Encounter Date: 10/27/2023 Winch Driver Referral for Typ e II diabetes mellitus uncontrolled once visit is complete please send us the visit notes Referring Physician: Bharath Jett [facility], Encounter Date: 11/03/2023 Results Created Date Observation Date Name Description Value Unit Range Abnormal Flag LastModifiedBy Organization Detail LastModifiedTime 11/03/19 24 11/03/2023 hemog lobin A1C, finge rstic k hemoglobin A1C 7.7 % <5.7 Not Available [address], [address], 11/03/2023 14:48:42 10/05/19 24 10/05/2023 ICD inter rogat ion, in-pe rson (PROC ) No observ ation record ed. [email or web address] [facility] [address], [place], [address], 10/06/2023 09:44:46 11/28/19 24 11/28/2023 vrad esteban daniel Name: Cristino Hart Unit #: [id number] Loc: ER Orderi ng Provid er: Accoun t #: [id number] Status : REG ER Primar y [...] FINDIN GS: ANTERI OR CIRCUL ATION: Right internetworking technician al caroti d artery : Intrac ranial segmen t is patent with no signif icant stenos is. No aneury sm. Right middle cerebr al artery : No occlus ion or signif icant stenos is. No aneury sm. Right anteri or cerebr al artery : No occlus ion or signif icant stenos is. No aneury sm. Left internetworking technician al caroti d artery : Intrac ranial segmen t is patent with no signif icant stenos is. No aneury sm. Left middle cerebr al artery : No occlus ion or signif icant stenos is. No aneury sm. Left anteri or cerebr al artery : No occlus ion or signif icant stenos is. No aneury sm. TOOL SHARPENER IOR CIRCUL ATION: Right verteb ral artery : No occlus ion or signif icant stenos is. No aneury sm. Left verteb ral artery : No occlus ion or signif icant stenos is. No aneury sm. Basila r artery : No occlus ion or signif icant stenos is. No aneury sm. Right mrb engineer ior cerebr al artery : No occlus ion or signif icant stenos is. No aneury sm. Left mrb engineer ior cerebr al artery : No occlus [...] branch es of the anteri or or mrb engineer ior intrac ranial circul ation. 2. No [...] No dissec tion or occlus ion. Right internetworking technician al caroti d artery : No stenos is of the extrac ranial segmen t. No dissec tion or occlus ion. Right channel sales manager al caroti d artery : No occlus ion or stenos is of the origin . Left common caroti d artery : No stenos is. No dissec tion or occlus ion. Left internetworking technician al caroti d artery : No stenos is of the extrac ranial segmen t. No dissec tion or occlus ion. Left channel sales manager al caroti d artery : No [...] segmen ts of the right or left internetworking technician al caroti d arteri es by NASCET criter ia. REFERE NCES: NASCET CRITER IA. The degree of stenos is in the cervic al segmen t of the internetworking technician al caroti d artery is based on NASCET criter ia. Normal is no stenos is. Mild is less than 50% stenos is. Modera te is 50-69% stenos is. Severe is 70% to 99% stenos is. Total occlus ion is no detect able patent lumen. Dictat ed and Ben chaudhari d by: Yohan Jennings MD. Orderi ng:Katherine miller MD Access ion#=[id number] Ordermichelle d By: CC: ------ ------ [...] error, please notify us immrigoi camille at [phone] and return the origin al report to us at the addres s above. Thank- you. jeff [facility] [address], [place], [address] 11/29/2023 09:49:12 11/28/19 24 11/28/2023 zach daniel Name: Cristino Hart Unit #: [id number] Loc: ER Orderi lilian Provid er: Huy daniel #: [id number] Status : REG ER Primar y [...] MD. Olman ng:Katherine miller MD Access ion#=[id number] Ordermichelle d By: CC: ------ ------ [...] at the addres s above. [facility]- you. [facility] [address], [place], [address] 11/29/2023 09:49:13 11/28/19 24 11/28/2023 vrad repor t Lenny t Name: Cristino Hart Unit #: [id number] Loc: ER Orderi ng Provid er: Accoun t #: [id number] Status : REG ER Primar y [...] FINDIN GS: ANTERI OR CIRCUL ATION: Right internetworking technician al caroti d artery : Intrac ranial segmen t is patent with no signif icant stenos is. No aneury sm. Right middle cerebr al artery : No occlus ion or signif icant stenos is. No aneury sm. Right anteri or cerebr al artery : No occlus ion or signif icant stenos is. No aneury sm. Left internetworking technician al caroti d artery : Intrac ranial segmen t is patent with no signif icant stenos is. No aneury sm. Left middle cerebr al artery : No occlus ion or signif icant stenos is. No aneury sm. Left anteri or cerebr al artery : No occlus ion or signif icant stenos is. No aneury sm. TOOL SHARPENER IOR CIRCUL ATION: Right verteb ral artery : No occlus ion or signif icant stenos is. No aneury sm. Left verteb ral artery : No occlus ion or signif icant stenos is. No aneury sm. Basila r artery : No occlus ion or signif icant stenos is. No aneury sm. Right mrb engineer ior cerebr al artery : No occlus ion or signif icant stenos is. No aneury sm. Left mrb engineer ior cerebr al artery : No occlus [...] branch es of the anteri or or mrb engineer ior intrac ranial circul ation. 2. No [...] No dissec tion or occlus ion. Right internetworking technician al caroti d artery : No stenos is of the extrac ranial segmen t. No dissec tion or occlus ion. Right channel sales manager al caroti d artery : No occlus ion or stenos is of the origin . Left common caroti d artery : No stenos is. No dissec tion or occlus ion. Left internetworking technician al caroti d artery : No stenos is of the extrac ranial segmen t. No dissec tion or occlus ion. Left channel sales manager al caroti d artery : No [...] segmen ts of the right or left internetworking technician al caroti d arteri es by NASCET criter ia. REFERE NCES: NASCET CRITER IA. The degree of stenos is in the cervic al segmen t of the internetworking technician al caroti d artery is based on NASCET criter ia. Normal is no stenos is. Mild is less than 50% stenos is. Modera te is 50-69% stenos is. Severe is 70% to 99% stenos is. Total occlus ion is no detect able patent lumen. Dictat ed and Ben chaudhari d by: Yohan Jennings MD. Orderi ng:Katherine miller MD Access ion#=[id number] Ordere d By: CC: ------ ------ ------ ------ ------ ------ ------ ------ ------ ------ ------ ------ ---- Dictat ed By: Report s vrad 1848 Transc ribed By: Di Merge 1848 This is privil eged, confid ential inform ation intend ed only for the provid er named. Any use or distri bution by any person other than this [facility] er is strict ly prohib ited. If you receiv e this report in error, please notify us immedi ately at [phone] and return the origin al report to us at the addres s above. Thank- you. eocurt [facility] [address] [place], [address] 11/29/2023 09:49:13 11/29/19 24 11/29/2023 x-ray imagi ng repor t Patien t Name: Brock Hart #: [id number] Loc: Orderi ng Provid er: Charlette Denton Accoun t #: [id number] Status : ADM EJ Primar y [...] at the addres s above. Thank- you. [facility] [address] [place], [address] 11/29/2023 09:49:14 11/29/19 24 11/29/2023 CT imagi ng repor t Patien t Name: Cristino Hart Unit #: [id number] Loc: Ordertad ng Provid er: Charlette Denton t #: [id number] Status : DIS EJ Primar y [...] the caroti d bulbs and proxim al internetworking technician al caroti d arteri es there is minima l plaque withou t hemody namica lly signif icant stenos is eviden t. Both internetworking technician al caroti d arteri es are demons trated to be patent in the upper neck and skull base- caroti d canals . Associate Director Qa ior circul ation: Both verteb ral arteri [...] Brain W: Anteri or circul ation: Both internetworking technician al caroti d arteri es are patent [...] no aneury sms of these vessel s. Associate Director Qa ior circul ation: The basila r artery ascend s in the midlin e. Distal ly it gives off patent bilate ral superi or cerebe llar arteri es. Above this level the basila r artery termin ates as patent bilate ral mrb engineer ior cerebr al arteri es. There is also mrb engineer ior commun icatin g artery on the right side of the nez perce -of-Wi llis. There is no eviden ce of aneury sm at the tip of the basila r artery nor elsewh ere in the nez perce -of-Wi llis. CT BRAIN: There is no [...] REPOSI TORY: All CT scans at this [facility] are submit ander to the [facility] Radiol ogy Data Regist ry (NRDR) Dose Index Regist ry (DIR) with the [employer] radha martinez of Radiol ogy (ACR). RADIAT ION OPTIMI ZATION : All CT scans at this [facility] use at least one of these dose [...] error, please notify us immnisa obrien at and return the origin al report to us at the addres s above. Thank- you. [facility] [address], [place], [address] 11/29/2023 14:50:21 12/30/19 24 12/30/2023 elect steph beatty am No observ ation record ed. [facility] [address] [place], [address], 12/30/2023 12:41:49 12/31/19 24 12/31/2023 rhyth m strip , EKG* No observ ation record ed. [email or web address] Not Available 12/31/2023 13:33:00 Result Notes None recorded. Problems Name Status Onset Date Resolution Date Notes Provider Name and Address Organization Details Recorded Time Hyperlipidemi a Active 2005 on repatha, statin intolerant MD [address], [place], [address] , [facility] 19:48:59 Rosacea Completed 200307/24/2023 Problem Code: L71.9; Problem Code Type: ICD-10; MD [address], [place], [address] , [facility] 19:37:39 Essential hypertension Active [address], [place], [address] , [facility] 19:38:21 Type 2 diabetes mellitus without complication [...] Code Type: ICD-10; MD [address]an [address], [facility] [address] [place] [address] 4 15:19:41 Allergic rhinitis Completed 201407/24/2023 09/26/2018 Problem Code: J30.9; Problem Code Type: ICD-10; Sameera Short simona, [facility] 4 12:27:18 Mild intermittent asthma Completed 201507/24/2023 Problem Code: J45.20; Problem Code Type: ICD-10; MD Regan [address], [address] 4 19:38:59 Acquired absence of cervix and uterus Completed 201507/24/2023 Problem Code: Z90.710; Problem Code Type: ICD-10; MD Regan [address], [address] 4 19:39:15 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 Statin [...] Code Type: ICD-10; MD [address]an [address], [facility] [address] [place] [address] 4 13:23:43 Disorder of skin and/or subcutaneous tissue Completed 201701/25/2018 Problem Code: L98.9; Problem Code Type: ICD-10; Not Available [facility] 3 04:19:16 Overflow incontinence of urine Completed 201807/24/2023 Problem Code: N39.490; Problem Code Type: ICD-10; MD [address], [facility] [address] , [facility] 4 19:37:43 Screening mammography Completed 201806/25/2023 Problem Code: Z12.31; Problem Code Type: ICD-10; MD [address]an [address], [facility] [address] [place] [address] 4 19:42:41 Hypercalcemia Active [address], [facility] [address] [place] [address] 4 19:40:41 Urge incontinence of urine Completed 201807/24/2023 Problem Code: N39.41; Problem Code Type: ICD-10; MD Regan [address], [address] 19:40:30 History of recurrent pneumonia Completed 201802/14/2019 Problem Code: Z87.01; Problem Code Type: ICD-10; Not Available [facility] 3 04:19:17 Squamous cell carcinoma of skin of face Completed 201907/24/2023 11/29/2019 - Comments only - Franny Davison MD - she will be scheduled for surgery in the near future, recommending holding apixaban 3 days prior to procedure and then restarting, Problem Code: C44.320; Problem Code Type: ICD-10; MD Regan [address], [address] 4 19:37:37 Major depression, single episode Completed 201907/24/2023 Problem Code: F32.9; Problem Code Type: ICD-10; MD Regan [address], [address] 4 19:37:48 Adjustment disorder with mixed anxiety and depressed mood Completed 201907/24/2023 Problem Code: F43.23; Problem Code Type: ICD-10; MD Regan [address], [address] 4 19:39:12 Neuropathy due to type 2 diabetes mellitus Active [address], [address] 4 19:48:19 Proteinuria Completed 202007/24/2023 Problem Code: R80.9; Problem Code Type: ICD-10; MD Regan [address], [address] 4 19:38:51 Hyperparathyr oidism Active [address], [address] 4 19:40:21 Vitamin B deficiency Active [address], [address] 4 19:38:27 Chest pain Completed 202107/24/2023 Problem Code: R07.89; Problem Code Type: ICD-10; MD Regan [address], [address] 4 09:51:51 Essential tremor Active 2021 Stable MD [address], [address] 4 19:20:59 Abnormal involuntary movement Completed 202107/24/2023 Problem Code: R25.8; Problem Code Type: ICD-10; MD Regan [address], [address] 4 19:36:57 Screening for cancer Completed 202106/25/2023 Problem Code: Z12.10; Problem Code Type: ICD-10; MD Regan [address], [address] 4 13:23:13 Cough Completed 202106/13/2022 Problem Code: R05.8; Problem Code Type: ICD-10; Not Available [facility] 3 04:19:19 Anesthesia of skin Completed 202206/25/2023 Problem Code: R20.0; Problem Code Type: ICD-10; MD [address], [place], [address] , [facility] 4 13:23:29 Ventricular tachycardia Completed 202207/24/2023 Problem Code: I47.20; Problem Code Type: ICD-10; MD [address], [facility] [address] , [facility] 4 19:37:02 Kidney stone Completed 202207/24/2023 Problem Code: N20.0; Problem Code Type: ICD-10; MD Regan [address], [address] 19:40:33 Syncope and collapse Completed 202207/24/2023 Problem Code: R55; Problem Code Type: ICD-10; MD [address], [facility] [address] , [facility] 19:38:44 History of disorder of digestive system Completed 202207/24/2023 Problem Code: Z87.19; Problem Code Type: ICD-10; MD [address], [place], [address] , [facility] 19:40:17 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 MD [address], [facility] [address] , [facility] 19:47:04 Ulcer of duodenum Completed 202207/24/2023 Problem Code: K26.9; Problem Code Type: ICD-10; MD [address], [facility] [address] , [facility] 4 19:37:54 Hemorrhagic esophagitis Completed 202207/24/2023 Problem Code: K20.91; Problem Code Type: ICD-10; MD [address], [place], [address] , [facility] 4 19:38:17 Acute posthemorrhag ic anemia Completed 202207/24/2023 Problem Code: D62; Problem Code Type: ICD-10; MD [address], [facility] [address] , [facility] 4 19:37:07 Hypertrophic cardiomyopath y Active [address], [facility] [address] [place] [address] 4 19:58:46 Urinary tract infectious disease Completed 201805/08/2019 Problem Code: N39.0; Problem Code Type: ICD-10; Not Available [facility] 3 04:19:23 Right lower quadrant pain Completed 201810/23/2019 Problem Code: R10.31; Problem Code Type: ICD-10; Not Available [facility] 3 04:19:23 Screening for osteoporosis Completed 201705/07/2022 Problem Code: Z13.820; Problem Code Type: ICD-10; Not Available [facility] 3 04:19:23 Breast composition Completed 201404/14/2016 Not Available [facility] 3 04:19:24 Parkinson's disease Completed 202102/03/2022 Problem Code: G20; Problem Code Type: ICD-10; Not Available [facility] 3 04:19:24 Diarrhea Completed 201805/07/2022 Problem Code: R19.7; Problem Code Type: ICD-10; Not Available [facility] 3 04:19:24 Chorea Completed 202004/10/2021 Problem Code: G25.5; Problem Code Type: ICD-10; Not Available [facility] 3 04:19:24 Blood chemistry outside reference range Completed 201609/24/2022 Problem Code: R79.89; Problem Code Type: ICD-10; Not Available [facility] 3 04:19:24 Dyspnea Completed 201810/23/2019 Problem Code: R06.02; Problem Code Type: ICD-10; MD [address]an [address], [facility] [address] [place] [address] 4 19:42:49 Chest pain Completed 202004/10/2021 Problem Code: R07.89; Problem Code Type: ICD-10; MD Regan [address], [facility] [address] [place] [address] 4 09:51:51 Bleeding from nose Completed 201606/29/2017 Problem Code: R04.0; Problem Code Type: ICD-10; Not Available [facility] 3 04:19:25 Hyperglycemia due to type 2 diabetes mellitus Completed 201504/14/2016 Problem Code: E11.65; Problem Code Type: ICD-10; Not Available [facility] 3 04:19:26 Upper respiratory tract infection caused by Influenza A Completed 202109/08/2022 Problem Code: J09.x2; Problem Code Type: ICD-10; Not Available [facility] 3 04:19:26 Hypertensive disorder Completed 200603/17/2023 Not Available [facility] 3 04:19:26 Type 2 diabetes mellitus Completed 200503/17/2023 Not Available [facility] 3 04:19:27 Adult health examination Completed 201605/19/2017 Problem Code: Z00.00; Problem Code Type: ICD-10; Not Available [facility] 3 04:19:27 Exposure to communicable disease Completed 202011/26/2020 Problem Code: Z20.9; Problem Code Type: ICD-10; Not Available [facility] 3 04:19:27 Bilateral earache Completed 201705/09/2018 Problem Code: H92.03; Problem Code Type: ICD-10; Not Available [facility] 3 04:19:27 Chest pain Completed 202111/03/2021 Problem Code: R07.9; Problem Code Type: ICD-10; MD [address]an [address], [facility] [address] [place] [address] 4 09:51:51 Increased frequency of urination Completed 201502/03/2022 Problem Code: R35.0; Problem Code Type: ICD-10; Not Available [facility] 3 04:19:28 Acute urinary tract infection Completed 202206/25/[address], [facility] [address] 4 13:23:38 Muscle weakness Active 2022 TORY FERGUSON RN [facility], [facility] 3 12:36:18 Screening mammography Completed 201507/24/2023 Problem Code: Z12.31; Problem Code Type: ICD-10; MD Regan [address], [facility] [address] [place] [address] 4 19:42:41 Generalized skin eruption caused by drug and medicament Completed 202207/24/2023 Problem Code: L27.0; Problem Code Type: ICD-10; MD Regan [address], [facility] [address] [place] [address] 4 19:42:34 Candidiasis of vulva Completed 202207/24/[address], [facility] [address] [place] [address] , [facility] 4 19:40:45 Automatic implantable cardiac defibrillator in situ Active 2022 [employer] Bi-V ICD. Placed 11/2022 at [facility] MD [address], [address] 4 19:44:34 Dizziness and giddiness Active 2022 Problem Code: R42; Problem Code Type: ICD-10; MD Regan [address], [address] 19:42:51 Dyspnea Completed 202207/24/2023 Problem Code: R06.09; Problem Code Type: ICD-10; MD Regan [address], [address] 19:42:49 Red blood cell finding Completed 202207/24/2023 Problem Code: R71.8; Problem Code Type: ICD-10; MD Regan [address], [address] 19:42:46 Vulval and/or perineal noninflammato ry disorders Completed 202207/24/2023 Problem Code: N90.89; Problem Code Type: ICD-10; MD Regan [address], [address] 4 19:42:37 Dysuria Completed 202207/24/2023 Problem Code: R30.0; Problem Code Type: ICD-10; MD Regan [address], [address] 19:43:56 Atheroscleros is of coronary artery without angina pectoris Active 2022 s/p HUDSON to RCA MD [address], [address] , [facility] 19:43:[address] Paredes monitoring, concern for Parkinsism, Jay scan 11/09 negative. 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 S/p ICD implantation. MD [address]an [address], [address] 19:46:00 Paroxysmal atrial fibrillation Active [address], [facility] [address] [place] [address] 19:46:19 Heart failure with normal ejection fraction Active 2023 NYHA stage 3. Followed by [facility] cardiology, Carlos Ha NP, MD [address], [facility] [address] [place] [address] 19:53:02 Dilated cardiomyopath y Active [address], [facility] [address] , [facility] 4 19:46:57 Type II diabetes mellitus uncontrolled Active [address], [place], [address] , [facility] 4 19:47:49 Type 2 diabetes mellitus [...] Code: E11.9; Problem Code Type: ICD-10; MD [address]na [address], [place], [address] , [facility] 4 15:19:41 Recurrent urinary tract infection Active 2023 Sameera Short null, [facility] 4 12:36:35 Memory impairment Active 2023 Sameera Short null, [facility] 4 12:36:32 Hemiplegia and/or hemiparesis following stroke Active [address], [place], [address] , [facility] 4 07:09:33 Actinic keratosis Active [address], [place], [address] , [facility] 4 07:32:48 Tremor Active 2023 FILOMENA GREGG MA null, [facility] 4 10:14:28 Neuropathic pain Active 2023 FILOMENA GREGG MA null, [facility] 4 10:14:50 Cervical radiculopathy Active 2023 FILOMENA GREGG MA null, [facility] 4 10:15:16 Sciatica Active 2023 FILOMENA GREGG MA null, [facility] 4 10:15:27 Impairment of balance Active 2023 FILOMENA GREGG MA null, [facility] 4 10:16:14 Neuropathy Active [address], [facility] [address] , [facility] 4 11:01:37 Overweight Active [address], [facility] [address] , [facility] 4 09:42:35 Dyspnea on exertion Active [address], [facility] [phone] [place] [address] 4 09:42:35 Chest pain Active 2023 Problem Code: R07.89; Problem Code Type: ICD-10; MD Regan [address]CGEE Dr, [facility] [address] , [facility] 4 09:51:51 Problem Notes None recorded. Procedures Surgical History Date Name Laterality Status Provider Name and Address Organization Details Recorded Time 12/09/19 23 endovascular insertion of drug eluting stent completed MD Regan MCGEE Dr, [facility] [address], [facility] 07/24/2023 19:50:55 01/20/20 13 Hysterectomy completed MD Regan MCGEE Dr, [facility] [address] [place] [address] 07/24/2023 19:39:58 Imaging Results None recorded. Procedure Notes None recorded. Medical Equipment None Reported. Allergies Allergen ID Allergen Name Allergen Category Reaction Reaction Severity Criticality Documentation Date Start Date Code Code System Note Provider Name and Address Organization Details Recorded Time 22404 Iodinated contrast media (substanc e) medicatio n Not available Not available Not available 04/30/20232002 59364 2004 SNOMED Aller gyNam e: 'IVP DYE'; Not Available [facility] 3 16:31:18 04301 Product containin g 3-hydroxy -3-methyl glutaryl- coenzyme A reductase inhibitor (product) medicatio n Not available Not available Not available 04/30/20232017 34271 009 SNOMED Not Available [facility] 3 16:31:19 02875 lisinopri l medicatio n cough mild Not available 04/30/20232015 12071 RxNorm cough Aller gyCod e: '3140 76'; Aller gyNam e: 'SARAH NOPRI L'; Aller gyCon ceptT ype: 'RX Norm' ; Not Available [facility] 3 16:31:19 69364 Zetia medicatio n myalgias (muscle pain) mild Not available 04/30/20232006 31019 9 RxNorm MYALG [place] Not Available [facility] 3 16:31:20 18701 Plaquenil medicatio n myalgias (muscle pain) mild Not available 04/30/20232006 41608 2 RxNorm MYALG [place] Not Available [facility] 3 16:31:20 10441 Cozaar medicatio n Not available Not available Not available 04/30/20232004 59878 8 RxNorm Not Available [facility] 3 16:31:20 80754 atenolol medicatio n cough mild low 05/05/20232022 1202 RxNorm LACEY DORMAN [facility] 3 12:16:33 08959 acetamino phen / oxycodone medicatio n rash moderate high 05/05/20232022 39791 3 RxNorm LACEY DORMAN [facility] 3 12:17:17 57935 Plavix medicatio n rash severe high 05/05/20232022 89015 2 RxNorm BHARATH JETT MD [address], [place], [address] [place] [address] 4 19:41:48 02041 ticagrelo r medicatio n abdominal pain severe Not available 07/02/20232022 32175 32 RxNorm Aller gyRea ction : 'Carlos Manuel roint estin al,'; Aller gyNam e: 'ILA GRELO R'; Not Available [facility] 4 05:10:26 91304 aspirin medicatio n Not available Not available [facility] 07/23/2023 1191 RxNorm GI bleed BHARATH JETT MD [address], [place], [address] , [facility] 4 19:41:13 00173 Jardiance medicatio n Not available Not available [facility] 07/24/2023 28313 59 RxNorm recur rent yeast infec tions and UTIs MD Regan [address], [place], [address] [place] [address] 4 19:42:15 Medications Name Sig Start Date [...] tab by mouth daily 05/10 completed per [facility] endocrin ology Not Available Not Available Not [...] completed Not Available Not Available Not Available DeclaraToCramster Ultra Test strips Test blood glucose three [...] once a day 11/17 completed started at [facility] discharg e followin g recurren t [...] for nausea and vomiting 11/17 completed Per [facility] ED 11/02/22 Not Available Not Available [...] with humalog pen if preferre d by [facility] e ID# [id number] Not Available Not Available Not Available [...] cap by mouth twice daily [facility] Not Available Not Available [...] Not Available Not Available FreeStyle Melanie 3 [place] Use as directed active Not Available Not Available No t Available Vitals Date Recorded Body height Body mass index (BMI) Body weight Body temperature Oxygen saturation Oxygen saturation in Arterial blood by Pulse oximetry Heart rate Systolic blood pressure Diastolic blood pressure Provider Name and Address Organization Details Last Updated DateTime 4 162.56 cm 26.8 kg/m2 62889.4 1 g 97.8 [degF] 97 % 97 % 71 /min 118 mm[Hg] 70 mm[Hg] FILOMENA GREGG MA [facility] 14:04:28 Social History Question Answer Notes LastModified by Organizat ion Details LastModified Time Tobacco Smoking Status Never Smoker LACEY DORMAN, [facility] 05/05/2023 13:38:34 What Is Your Level Of Alcohol Consumption? None Information not available 05/05/2023 Date Care Plan Printed: 08/12/2023 First Printed 04/26/23 (old System) Information not available 08/12/2023 Assigned Community Services Coordinator: Leisa Segovia Information not available 08/12/2023 Is [facility] The Lead Community Services Coordinator? Yes Information no t available 08/12/2023 Level [...] free, adsorbed 08/05/2021 completed Not Available [facility] 04/30/2023 05:10:29 Tdap 12/18/2011 completed Not Available [facility] 05:10:29 zoster live 07/12/2012 completed Not Available [facility] 04/30/2023 05:10:29 Pneumococcal conjugate PCV 13 06/29/2017 completed Not Available [facility] 04/30/2023 05:10:29 Influenza, high-dose, trivalent, PF 05/09/2018 completed Not Available [facility] 04/30/2023 05:10:29 Td(adult) unspecified formulation 10/01/2005 completed Not Available [facility] 04/30/2023 05:10:30 Td(adult) unspecified formulation 12/18/2011 completed Not Available [facility] 04/30/2023 05:10:30 Td(adult) unspecified formulation 04/06/1996 completed Not Available [facility] 04/30/2023 05:10:30 Influenza, split virus, trivalent, preservative 03/13/2015 completed Not Available [facility] 04/30/2023 05:10:30 Influenza, split virus, trivalent, preservative 04/14/2016 completed Not Available [facility] 04/30/2023 05:10:30 Influenza, split virus, quadrivalent, preservative 04/27/2017 completed Not Available [facility] 04/30/2023 05:10:31 Influenza, MDCK, quadrivalent, PF 05/08/2019 completed Not Available [facility] 04/30/2023 05:10:32 Influenza, high-dose, quadrivalent, PF 04/21/2022 completed Not Available [facility] 04/30/2023 05:10:32 COVID-19, mRNA, LNP-S, PF, 100 mcg/0.5mL dose or 50 mcg/0.25mL dose 11/03/2021 completed Not Available [facility] 04/30/2023 05:10:32 COVID-19, mRNA, LNP-S, PF, 30 mcg/0.3 mL dose 08/19/2020 completed Not Available [facility] 04/30/2023 05:10:32 COVID-19, mRNA, LNP-S, PF, 30 mcg/0.3 mL dose 09/16/2020 completed Not Available [facility] 04/30/2023 05:10:32 COVID-19, mRNA, LNP-S, PF, 30 mcg/0.3 mL dose 04/10/2021 completed Not Available [facility] 04/30/2023 05:10:33 COVID-19, mRNA, LNP-S, bivalent, PF, 30 mcg/0.3 mL dose 05/07/2022 completed Not Available [facility] 04/30/20 05:10:33 pneumococcal polysaccharide PPV23 09/26/2018 completed Not Available [facility] 2022 05:10:34 pneumococcal polysaccharide PPV23 04/06/1996 completed Not Available [facility] 2022 05:10:34 influenza, unspecified formulation 03/04/2020 completed Not Available [facility] 04/30/2023 05:10:34 Influenza, high-dose, quadrivalent, PF 03/05/2023 completed Not Available [facility] 07/02/2023 05:30:45 COVID-19, mRNA, LNP-S, PF, arthur-sucrose, 30 mcg/0.3 mL 03/25/2023 completed Not Available [facility] 07/02/2023 05:30:45 Past Encounters Encounter ID Performer Location Encounter Start Date Encounter Closed Date Diagnosis/Indication Diagnosis SNOMED-CT Code [id number] BHARATH JETT MD [address] [address] 10/04/2023 15:05:30 10/04/2023 16:32:57 Type II diabetes mellitus uncontrolled 807206545 Memory impairment 078313 002 [id number] BHARATH JETT MD [address] [address] 11/03/2023 13:46:57 11/03/2023 14:49:28 Type II diabetes mellitus uncontrolled [id number] Heart fail ure with normal ejection fraction 574897198 Hemiplegia and/or hemiparesis following stroke [id number] Bradykinesia 535194282 Memory impairment 849518 006 Actinic keratosis Goals Section Goal Description [...] Acharya Member ID Guarantor Name 11/03/2023 1 [facility] (MEDICARE REPLACEMENT/A DVANTAGE - PPO) [id number] Joanna Hart [id number] Joanna Hart Notes Date Note Type Note [...] graduated cardiac rehab but continues to pay [id number] to keep going. She has really enjoyed [...] appointment. BHARATH JETT MD [address], [place], [address], [facility], [facility]. 11/04/2023 07:33:39 OBGyn Episode No OBEpisode recorded.
--- OUTSIDE RECORDS SUMMARY | 2024-01-14 11:07 | XMS_ITS | Encounter Summary ---
Author Organization [facility] Address [address] [place] [address] Care Team Providers Care Non Cdl Driver Name Role Phone Carlos Ha DETECTIVE SERGEANT Unavailable [phone] Elba Jett MD Primary Care Provider [phone] Encounter Details Date Type Department Care Team (Late st Contact Info) Description 06/03/2023 12:15 EST Phlebotomy Only [facility] - Outpatient Phlebotomy Drawing [address] [place] [address] Lab, [facility] Phlebotomy Chronic heart failure with preserved [...] Procedure [facility] Cardiology - [facility] [address] [place] [address] 03/08/2024 10:15 EDT Ancillary Procedure [facility] Cardiology - [facility] [address] [place] [address] 04/05/2024 10:00 EDT Ancillary Procedure [facility] [address] [place] [phone] 04/05/2024 10:00 EDT Office Visit [facility] [address] [place] [address] [phone] Carlos Ha NP [address] [place] [address] [place] [address] documented as of this encounter Procedures [...] 136 - 145 mmol/L 06/03/2023 13:01 EST [facility] Potassium 4.8 3.5 - 5.0 mmol/L 06/03/2023 13:01 [facility] Chloride 104 96 - 110 mmol/L 06/03/2023 13:01 [facility] CO2 Total 26 22 - 32 mmol/L 06/03/2023 13:01 [facility] Glucose 314(H) 70 - 99 mg/dl 06/03/2023 13:01 [facility] BUN 18 10 - 26 mg/dL 06/03/2023 13:01 [facility] Creatinine 0.86 0.52 - 1.04 mg/dL 06/03/2023 13:01 [facility] eGFR 72 >60 mL/min/1.7 3m2 06/03/2023 13:01 [facility] Total Protein 6.7 6.3 - 8.2 g/dL 06/03/2023 13:01 [facility] Albumin 3.9 3.4 - 4.9 g/dL 06/03/2023 13:01 [facility] Alkaline Phosphatase 67 38 - 126 U/L 06/03/2023 13:01 [facility] AST 24 15 - 46 U/L 06/03/2023 13:01 [facility] ALT 17 <35 U/L 06/03/2023 13:01 [facility] Bilirubin, Total 0.7 <1.4 mg/dL 06/03/20 13:01 [facility] Calcium 10.6(H) 8.5 - 10.5 mg/dL 06/03/2023 13:01 [facility] Albumin/Globulin Ratio 1.4 1.0 - 2.5 g/dL 06/03/2023 13:01 [facility] Anion Gap 8 5 - 14 mmol/L 06/03/2023 13:01 [facility] Blood VENOUS BLOOD / Unknown Venipuncture / Unknown 06/03/2023 12:20 EST 06/03/2023 12:36 EST Carlos Ha DETECTIVE SERGEANT CHEMISTRY & BLOOD GA S ORDERABLES [facility] [address] [place] [address] * (ABNORMAL) NT PRO BNP (06/03/2023 12:20 EST) NT-pro BNP 1,740(H) <221 pg/mL 06/03/2023 13:11 EST [facility] Comment: In the acute setting NT-proBNP values <300 pg/mL have a 98% NPV for excluding acute heart failure. In outpatient populations, NT-proBNP values <125 have a 99% NPV for excluding heart failure. Blood VENOUS BLOOD / Unknown Venipuncture / Unknown 06/03/2023 12:20 EST 06/03/2023 12:36 EST Carlos Ha NP CHEMISTRY & BLOOD GA S ORDERABLES [facility] [address] [place] [address] documented in this encounter Visit Diagnoses Diagnosis Chronic heart failure with preserved ejection fraction (HCC-CMS) documented in this encounter Care Teams Non Cdl Driver Relationship Specialty Start Date End Date Elba Jett MD [address] [place] [phone] PCP - General Family Medicine - Primary Care 05/18/23 Carlos Ha NP [address] [place] [address] [address] [place] [address] Consulting Clinician Cardiovascular Disease 09/14/21 documented as of this encounter
--- OUTSIDE RECORDS SUMMARY | 2024-01-14 11:07 | XMS_ITS | Encounter Summary ---
Author Organization [facility] Address [address] [place] [address] Care Team Providers Care Animal Taxonomist Name Role Phone Carlos Ha CONTROL SUPERVISOR Unavailable [phone] Elba Jett MD Primary Care Provider [phone] Encounter Details Date Type Department Care Team (Late st Contact Info) Description 06/15/[address] [address] Nurse, [facility] Social History Tobacco Use Types [...] Info) Description 03/08/2024 9:30 EDT Ancillary Procedure [facility]iology - [address] [place] [address] 03/08/2024 10:15 EDT Ancillary Procedure [facility]iology - [facility] [address] [place], [place] [phone] 04/05/2024 10:00 EDT Ancillary Procedure [facility] [address] [place] [phone] 04/05/2024 10:00 EDT Office Visit [facility] [address] [place] [phone] Carlos Ha NP [address] [place] [phone] documented as of this encounter Visit Diagnoses Not on filedocumented in this encounter Care Teams Animal Taxonomist Relationship Specialty Start Date End Date Elba Jett MD [address] [place] [phone] PCP - General Family Medicine - Primary Care 05/18/23 Carlos Ha CONTROL SUPERVISOR [address] [place] [address] [phone] Consulting Clinician Cardiovascular Disease 09/14/21 documented as of this encounter
--- OUTSIDE RECORDS SUMMARY | 2024-01-14 11:07 | XMS_ITS | Encounter Summary ---
Author Organization [facility] Address [address] [place] [address] Care Team Providers Care Family Mediator Name Role Phone Bryant Crain MD Primary Care Provider [phone] Carlos Ha SHAGGER Unavailable [phone] Elba Jett MD Primary Care Provider [phone] Encounter Details Date Type Department Care Team (Late st Contact Info) Description 04/16/[address] [facility] Pathology & Laboratory Medicine - [facility] [address] [place] [address] Outr Resulting Lab, Provider Social [...] Ancillary Procedure [facility] Cardiology - [place] [address] [address] [place], [place] [phone] 03/08/2024 10:[address] [facility] Cardiology - [place] [address] [place] [address] 04/05/2024 10:00 EDT Ancillary Procedure [facility] [address] [place] [phone] 04/05/2024 10:00 EDT Office Visit [facility] [address] [place] [address] Carlos Ha NP [address] [place] [address]A [address] [place] [phone] documented as of this encounter Procedures Procedure Name Priority Date/Time Associated Diagnosis Comments CALCIUM, URINE 24HR Routine 04/16/2023 8:30 EDT documented in this encounter Results * (ABNORMAL) CALCIUM, URINE 24HR (04/16/2023 8:30 EDT) Calcium, Urine 3.9 See Note mg/dL 04/17/2023 8:13 EDT [facility] Comment: NOTE: Reference range not established Calcium, Urine 24 hr 57(L) 100 - 300 mg/24hr 04/17/2023 8:13 EDT [facility] Comment:Reference range assu mes a normal daily intake of calcium between 600 - 800 mg/day. Urine Volume 1,450 mL 04/17/2023 8:13 EDT [facility] Urine Collection Period 24.0 Hours 04/17/2023 8:13 EDT [facility] Urine 24 HOUR URINE SPECIMEN / Unknown 04/16/2023 8:30 EDT 04/16/2023 22:01 EDT Provider Outr Resulting Lab URINALYSIS O RDERABLES [facility] [address] [place] [address] documented in this encounter Visit Diagnoses Not on filedocumented in this encounter Care Teams Family Mediator Relationship Specialty Start Date End Date Bryant Crain MD [address] [place] [address] PCP - General 05/04/15 05/17/23 Elba Jett MD [address] [place] [phone] PCP - General Family Medicine - Primary Care 05/18/23 Carlos Ha NP [address] [place] [address] [phone] Consulting Clinician Cardiovascular Disease 09/14/21 documented as of this encounter
--- OUTSIDE RECORDS SUMMARY | 2024-01-14 11:07 | XMS_ITS | Encounter Summary ---
Author Organization [facility] Address [address] [place] [address] Care Team Providers Care Hand Bender Name Role Phone Carlos Ha BASKET TURNER Unavailable [phone] Elba Jett MD Primary Care Provider [phone] Reason for Visit * Reason Onset Date Comments Appointment Related 06/17/2023 Encounter Details Date Type Department Care Team (Late st Contact Info) Description 06/17/2023 Telephone [facility] Card[facility] Clinic [address] [place] [address] Carlos Ha, BASKET TURNER [address] [facility] [address] [place] [address] Appointment Related Social History Tobacco [...] any mention of appts other than the [email or web address] that was already rescheduled. No imaging or lab orders without results. * Telephone Encounter - Eli Humphreys - 06/17/2023 1004 EST calling in to check on an appt he thought he cancelled and did not R/S. I only saw the [facility] Plus[facility] appt in there. Patient states that already had that done with us. Can we help him figure out who he needs to be speaking with. Thanks documented in this encounter Plan of Treatment Upcoming Encounters Date Type Department Care Team (Late st Contact Info) Description 03/08/2024 9:30 EDT Ancillary Procedure [facility] Cardiology [facility] [place] [address] 03/08/2024 10:15 EDT Ancillary Procedure [facility] Cardiology - [facility] [place] [address] 04/05/2024 10:00 EDT Ancillary Procedure [facility]iology Clinic [address] [place] [address] 04/05/2024 10:00 EDT Office Visit [facility]iology Clinic [address] [place] [address] Carlos Ha NP [address] [place] [phone] documented as of this encounter Visit Diagnoses Not on filedocumented in this encounter Care Teams Hand Bender Relationship Specialty Start Date End Date Elba Jett MD [address] [place] [phone] PCP - General Family Medicine - Primary Care 05/18/23 Carlos Ha NP [address] [place] [phone] Consulting Clinician Cardiovascular Disease 09/14/21 documented as of this encounter
--- OUTSIDE RECORDS SUMMARY | 2024-01-14 11:07 | XMS_ITS | Encounter Summary ---
Author Organization [facility] Address [address] [place] [address] Care Team Providers Care Mattress Stuffer Name Role Phone Carlos Ha TELEVISION JOURNALIST Unavailable [phone] Elba Jett MD Primary Care Provider [phone] Encounter Details Date Type Department Care Team (Late st Contact Info) Description 12/13/2023 Lab Requisition [facility] Pathology & Laboratory Medicine - [facility] [address] [place], [place] [phone] Outr Resulting Lab, Provider Social History Tobacco [...] 03/08/2024 9:30 EDT Ancillary Procedure [facility] Cardiology - [address] [place], [place] [phone] 03/08/2024 10:15 EDT Ancillary Procedure [facility] Cardiology - [facility] [address] [place] [address] 04/05/2024 10:[address] [facility] [address] [place] [id number] 04/05/2024 10:[address] [facility] [address] [place] [phone] Carlos Ha, RAHEEM [address] [place] [address]A [address] [place] [address] documented as of this encounter [...] 60.0 55.8 - 66.1 % 12/14/2023 12:34 [facility] Albumin g/dL 3.8 3.6 - 5.2 g/dL 12/14/2023 12:34 [facility] Alpha-1 % 4.9 2.9 - 4.9 % 12/14/2023 12:34 [facility] Alpha-1 g/dL 0.30 0.15 - 0.40 g/dL 12/14/2023 12:34 [facility] Alpha-2 % 11.4 7.1 - 11.8 % 12/14/2023 12:34 [facility] Alpha-2 g/dL 0.70 0.50 - 1.00 g/dL 12/14/2023 12:34 [facility] Beta % 13.4(H) 8.4 - 13.1 % 12/14/2023 12:34 [facility] Beta g/dL 0.80 0.60 - 1.20 g/dL 12/14/2023 12:34 [facility] Gamma % 10.3(L) 11.1 - 18.8 % 12/14/2023 12:34 [facility] Gamma g/dL 0.60 0.60 - 1.60 g/dL 12/14/2023 12:34 [facility] SPEP Comment No apparent monoclonal protein seen on serum electrophoresis 12/14/2023 12:34 [facility] Comment:See scanned/suppleme ntary report. Total Protein 6.3 6.3 - 8.2 g/dL 12/14/2023 12:34 [facility] Blood VENOUS BLOOD / Unknown 12/13/2023 9:14 EDT 12/13/2023 17:12 EDT Provider Outr Resulting Lab CHEMISTRY & BLOOD GAS ORDERABLES [facility] [address] [place], [place] [phone] * PROTEIN, TOTAL (12/13/2023 9:14 EDT) Blood VENOUS BLOOD / Unknown 12/13/2023 9:14 EDT 12/13/2023 17:12 EDT Provider Outr Resulting Lab CHEMISTRY & BLOOD GAS ORDERABLES Performing Organization Address City/[facility]/ZIP Co de Phone Number [facility] [address] [place] [address] * LYME AB (12/13/2023 9:14 EDT) Lyme Ab Negative Negative 12/14/2023 13:36 EDT [facility] Blood VENOUS BLOOD / Unknown 12/13/2023 9:14 EDT 12/13/2023 17:12 EDT Provider Outr Resulting Lab IMMUNOLOGY A ND SEROLOGY ORDERABLES Performing Organization Address [facility] Co de Phone Number [facility] [address] [place] [address] documented in this encounter Visit Diagnoses Not on filedocumented in this encounter Care Teams Mattress Stuffer Relationship Specialty Start Date End Date Elba Jett MD [address] [place] [phone] PCP - General Family Medicine - Primary Care 05/18/23 Carlos Ha NP [address] [place] [address] [address] [place] [address] Consulting Clinician Cardiovascular Disease 09/14/21 documented as of this encounter
--- OUTSIDE RECORDS SUMMARY | 2024-01-14 11:07 | XMS_ITS | Encounter Summary ---
Author Organization [facility] Address [address] [place] [address] Care Team Providers Care Overlay Plastician Name Role Phone Bryant Crain MD Primary Care Provider [phone] SCAN SPECIAL PROCEDURES TECHNOLOGIST Unavailable [phone] Reason for Visit * Reason Comments Follow-up Encounter Details Date Type Department Care Team (Latest Contact Info) Description 05/06/2023 14:[address] [facility] [address] [place] [address] Carlos Ha, CT SCAN SPECIAL PROCEDURES TECHNOLOGIST [address] [facility] [address] [place] [address] Dilated cardiomyopathy (HCC-CMS) (Primary Dx); [...] encounter Progress Notes * Dilcia Carlos L, CT SCAN SPECIAL PROCEDURES TECHNOLOGIST - 05/06/2023 1430 EST [facility] Telephone Visit The concept of ???Telemedicine?? has [...] History: Diagnosis Date ??? Cerebrovascular accident (CVA) ([facility]) 06/01/2019 ??? Diabetes mellitus, type 2 ([facility]) 01/26/2011 On metformin On metformin ??? Essential hypertension 06/01/2019 ??? Mixed hyperlipidemia 06/05/2019 ??? Nonrheumatic aortic valve stenosis 06/01/2019 ??? Paroxysmal atrial fibrillation ([facility]) 06/01/2019 SH/FH: reviewed and updated MEDICATIONS: Medications Prior to Today's Visit Medication Sig ??? acetaminophen (TYLENOL) 650 mg CR tablet 2 tab(s) orally twice a day, only as needed ??? apixaban (ELIQUIS) 5 mg tablet Take 1 Tablet by mouth 2 times daily. ??? BD ULTRA-FINE MICRO PEN NEEDLE 32 gauge x 1/4 needle ??? blood glucose meter by [facility] (non-drug; combo route) route daily. One touch [...] glucose scanning reader (FREESTYLE VICKY 2 READER) [facility] 1 Device by [facility] (non-drug; comboroute) route daily. Dispense one reader [...] ??? Propoxyphene N-Acetaminophen Other reaction(s): Hallucinations ??? Wsddlvx-Hyb-Rid Reductase Inhibitors ??? Trulicity [Dulaglutide] Gi Side [...] Procedure [facility] Cardiology - [facility] [address] [place] [address] 03/08/2024 10:15 EDT Ancillary Procedure [facility] Cardiology - [facility] [address] [place] [address] 04/05/2024 10:[address] [facility] [address] [place] [phone] 04/05/2024 10:[address] [facility] [address] [place] [phone] Carlos Ha NP [address] [place] [phone] documented as of this encounter Visit Diagnoses Diagnosis Dilated cardiomyopathy (HCC-CMS)- Primary Other primary cardiomyopathies Drug rash Dermatitis due to drugs and medicines taken internally documented in this encounter Care Teams Overlay Plastician Relationship Specialty Start Date End Date Bryant Crain MD [address] [place], [place] [phone] PCP - General 05/04/15 05/17/23 Carlos Ha NP [address] [place] [address] [address] Consulting Clinician Cardiovascular Disease 09/14/21 documented as of this encounter
--- OUTSIDE RECORDS SUMMARY | 2024-01-14 11:07 | XMS_ITS | Encounter Summary ---
Author Organization [facility] Address [address] [place] [address] Care Team Providers Care Certified Pharmacy Technician Name Role Phone Carlos Ha CURTAIN STRETCHER ASSEMBLER Unavailable [phone] Elba Jett MD Primary Care Provider [phone] Reason for Visit * Reason Comments Hyperlipidemia Atrial Fibrillation Hypertension Encounter Details Date Type Department Care Team (Latest Contact Info) Description 10/05/2023 15:00 EDT Office Visit [facility] [address] [place] [address] Carlos Ha, CURTAIN STRETCHER ASSEMBLER [address] [facility] [address] [place] [address] Cardiomyopathy ([facility]) (Primary Dx) Social History Tobacco [...] this encounter Progress Notes * Carlos Ha, CURTAIN STRETCHER ASSEMBLER - 10/05/2023 1500 EDT CC: Hyperlipidemia, Atrial [...] but was cancelled as she presented to [facility] ED on the day it was scheduled. She presented to [facility] on with complaints of fatigue, chest tightness, [...] and octreotide. She was then transferred to [facility]. Repeat EDG showed esophagitis, scattered [...] in for NSTEMI. She was transferred to [facility] for LHC 12/08/2022 with [...] signed up for Phase III Cardiac Rehab [facility] Cryptogenic stroke (left MCA) 2016 with [employer] loop 2017. ASA recently started during admission at [facility] 08/2022 Paroxysmal atrial fibrillation (2 hr episode noted on monitor 2018.Started on Eliquis. No further episodes noted) NSVT (1 episode August 2019 with negative MPI) AVB type I and II - noted on shelter monitor during recent admission Hypertension, Hyperlipidemia (LDL 65 in 2021: She has been intolerant to multiple statins now on REPATHA) DM2 (A1C 7.1) CKD III Kidney stone 11/02 passed Duodenal ulcer and esophagitis with acute GIB admit to [facility] 11/11-11/14. D/C on Protonix. ?Parkinson's Disease HCM -septal thickness 17 mm with very high burden LGE on MRI, epsides of NSVT. SH Lives in [place] with spouse Has three grown children She [...] 1/4 needle blood glucose meter by [facility] [...] 2 READER) mis 1 Device by [facility] [...] tablet Take 0.5 Tablets by mouth daily. [facility] No facility-administered medications prior to visit. ALLERGIES: [...] Plavix [Clopidogrel] Propoxyphene N-Acetaminophen Other reaction(s): Hallucinations Bcqhcxn-Gxx-Wty Reductase Inhibitors Trulicity [Dulaglutide] Gi Side effect [...] EXAM: Alert and oriented x3. Gait normal [facility] Card[facility] Device Visit Associate Account Director: [employer] Device Type: Multiple APPLIED MATHEMATICIAN-D Service: Office Visit Implant Date: 03/15/2023 Indication: [...] dilation (TID) with a value of 1.4 [facility] 12/08/2022 CORONARY ARTERIES: The coronary circulation is [...] from base to apex. The distal apex ([id number]) is concentrically involved by delayed enhancement. Left [...] 90% stenosis of RCA found on angiography. [facility] completed 12/08/22 with successful RCA stenting. -Off [...] and spironolactone -Improved symptoms with Bi-V ICD APPLIED MATHEMATICIAN -Scheduled to see Dr. Sebastian 02/2024 with [...] [facility] Cardiology - [address] [place], [place] [phone] 03/08/2024 10:15 EDT Ancillary Procedure [facility] Cardiology - [address] [place] [address] 04/05/2024 10:00 EDT Ancillary Procedure [facility] [address] [place] [phone] 04/05/2024 10:00 EDT Office Visit [facility] [address] [place] [address] [phone] Carlos Ha NP [address] [place] [address]-[address] [place] [address] documented as of this encounter Procedures Procedure Name Priority Date/Time Associated Diagnosis Comments CARDIAC IMPLANT CHECK - IN CLINIC Routine 10/05/2023 15:54 EDT Cardiomyopathy ([facility]) documented in this encounter Results [...] cardiomyopathies documented in this encounter Care Teams Certified Pharmacy Technician Relationship Specialty Start Date End Date Elba Jett MD [address] [place] [phone] PCP - General Family Medicine - Primary Care 05/18/23 Carlos Ha NP [address] [place] [address] [address] [place] [address] Consulting Clinician Cardiovascular Disease 09/14/21 documented as of this encounter
--- OUTSIDE RECORDS SUMMARY | 2024-01-14 11:07 | XMS_ITS | Encounter Summary ---
Author Organization [facility] Address [address] [place] [address] Care Team Providers Care Applied Behavior Science Specialist Name Role Phone Bryant Crain MD Primary Care Provider [phone] Carlos Ha BUSINESS INFO CONSULTANT Unavailable [phone] Elba Jett MD Primary Care Provider Reason for Visit * Reason Onset Date Comments Appointment Related 05/05/2023 Encounter Details Date Type Department Care Team (Late st Contact Info) Description 05/05/2023 Telephone [facility] [address] [place] [address] Carlos Ha, BUSINESS INFO CONSULTANT [address] [facility] [address] [place] [address] Appointment Related Social History Tobacco [...] encounter Miscellaneous Notes * Telephone Encounter - Clarie Rodrigues - 05/05/2023 1552 EST Patient has appointment at 2:30 with Carlos. * Telephone Encounter - Claire Rodrigues - 05/05/2023 1325 EST Called patient to try and take Carlos's cancellation on 05/06/23 at 2pm. documented in this encounter Plan of Treatment Upcoming Encounters Date Type Department Care Team (Late st Contact Info) Description 03/08/2024 9:30 EDT Ancillary Procedure [facility] Cardiology - [place] [address] [place] [address] 03/08/2024 10:15 EDT Ancillary Procedure [facility] Cardiology [facility] [place] [address] 04/05/2024 10:00 EDT Ancillary Procedure [facility] [address] [place] [address] 04/05/2024 10:00 EDT Office Visit [facility] [address] [place] [address] Carlos Ha, BUSINESS INFO CONSULTANT [address] [place] [address] [facility]-A [address] [place] [address] documented as of this encounter Visit Diagnoses Not on filedocumented in this encounter Care Teams Applied Behavior Science Specialist Relationship Specialty Start Date End Date Bryant Crain MD [address] [place], [place] [phone] PCP - General 05/04/15 05/17/23 Elba Jett MD [address] [place] [address] [place] [phone] PCP - General Family Medicine - Primary Care 05/18/23 Carlos Ha NP [address] [place] [address] [address] [place] [address] Consulting Clinician Cardiovascular Disease 09/14/21 documented as of this encounter
--- OUTSIDE RECORDS SUMMARY | 2024-01-14 11:07 | XMS_ITS | Encounter Summary ---
Author Organization [facility] Address [address] [place] [address] Care Team Providers Care Bark Press Operator Name Role Phone Carlos Ha OIL REFINER Unavailable [phone] Elba Jett MD Primary Care Provider [phone] Reason for Referral * Cardiology (Routine/Next Available) - New Request Specialty Diagnoses / Procedures Referred By Contac t Referred To Contact Diagnoses Hypertrophic cardiomyopathy ([facility]) Procedures TRANSTHORACIC ECHO (TTE) COMPLETE CO ECHO HEART XTHORACIC,COMPLETE W DOPPLER Randy Sebastian MD [address] [place] [phone] [facility] Referral ID Status Reason Start Date Expiration Date V isits Requested Visits Authorized [id number] New Request 05/18/2023 1 1 * Consult (Routine/Next Available) - Authorization Not Required Specialty Diagnoses / Procedures Referred By Contac t Referred To Contact Diagnoses Hypertrophic cardiomyopathy ([facility]) Randy Sebastian MD [address] [place] [phone] Referral ID Status Reason Start Date Expiration Date Visits Requested Visits Authorized [id number] Authorization Not Required Specialty Services Required 05/18/20 23 1 1 Question Answer Reason for Request: post AK PCI Reason for Visit * Reason Comments Congestive Heart Failure HfPEF (heart fa ilure with preserved ejection fraction) Encounter Details Date Type Department Care Team (Latest Contact Info) Description 05/18/2023 14:00 EST Office Visit [facility] Cardiology - [address] [place] [address] Randy Sebastian MD [address] [place] [phone] Hypertrophic cardiomyopathy (HCC-CMS) (Primary Dx) Social [...] Randy Sebastian MD - 05/18/2023 1400 EST [facility] Division of Cardiology- Advanced Heart [...] with my colleague, Ms. Carlos Ha at [facility], for the above-mentioned conditions. Most recent follow-up [...] Randy Sebastian MD Advanced HF and Transplant Sponsorship Manager [facility] 05/18/2023 14:03 Medications Prior to Today's Visit Medication Sig ??? acetaminophen (TYLENOL) 650 mg CR tablet 2 tab(s) orally twice a day, only as needed ??? apixaban (ELIQUIS) 5 mg tablet Take 1 Tablet by mouth 2 times daily. ??? BD ULTRA-FINE MICRO PEN NEEDLE 32 gauge x 1/4 needle ??? blood glucose meter by [facility] (non-drug; combo route) [...] on 03/31/2023) ??? flash glucose scanning reader (FREEInfermedicaYLE VICKY 2 READER) misc 1 Device by [...] ??? lancets/blood glucose strips (ONE TOUCH COMBO [facility]) -to test blood sugar - twice daily [...] Take 0.5 Tablets by mouth daily. ??? [facility] No facility-administered medications prior to visit. BP [...] care as described in the above note. aRndy Sebastian MD 05/18/2023,14:03 documented in this encounter Plan of Treatment Upcoming Encounters Date Type Department Care Team (Late st Contact Info) Description 03/08/2024 9:30 EDT Ancillary Procedure [facility] Cardiology - [place] [address] [place] [address] 03/08/2024 10:15 EDT Ancillary Procedure [facility] Cardiology - [facility] [place] [address] 04/05/2024 10:00 EDT Ancillary Procedure [facility] Clinic [address] [place] [phone] 04/05/2024 10:00 EDT Office Visit [facility] Clinic [address] [place] [phone] Carlos Ha NP [address] [place] [address]- [address] [place] [address] Scheduled Orders Name Type Priority [...] EST) 05/20/2023 14:5 4 EST Scan 2 Internal Medicine Specialist PROCEDURE/MINOR CROW GICAL ORDERABLES * EKG 12-LEAD (05/18/2023 14:16 EST) 05/18/2023 14:1 6 EST Narrative [facility] EKG - 05/20/2023 14:47 EST ? [facility] ? Test Date: ?2023-05-18 Pat Name: ? JOANNA GAUTAM ?Department: ?? [place] [facility] ? Room: ? Gender: ? Female ? Duplication Specialist: ?? [id number] : ?1950 ? Requested By: ASIA Ovalles Order Number: [id number] ? Reading : ?? REILLY GOMES SA, MD ? Measurements Intervals ?[place] ? Rate: ? 81 ? P: ?53 CO: ? 164 ?QRS: ?41 QRSD: ? 130 [...] Reilly Silverio Sa, MD - 05/20/2023 [facility] Test Date: 2023-05-18 Pat Name: JOANNA HART Department: [place] [facility] Room: Gender: Female Duplication Specialist: [id number] : 1950 Requested By: ASIA Ovalles Order Number: [id number] Reading MD: REILLY [place]LL Measurements Intervals [place] Rate: 81 P: 53 CO: 164 QRS: 41 QRSD: 130 T: 208 [...] Randy Sebastian MD CARDIAC ECG ORDERABL ES [facility] EKG documented in this encounter Visit Diagnoses Diagnosis Hypertrophic cardiomyopathy (HCC-CMS)- Primary Other hypertrophic cardiomyopathy documented in this encounter Discontinued Medications Medication Sig Discontinue Reason Start Date End Da te metoprolol TARtrate (LOPRESSOR) 25 mg tablet Take 0.5 Tablets by mouth daily. Therapy completed 12/09/2022 05/18/2023 documented as of this encounter Care Teams Bark Press Operator Relationship Specialty Start Date End Date Elba Jett MD [address] [place] [phone] PCP - General Family Medicine - Primary Care 05/18/23 Carlos Ha NP [address] [place] [address]-[address] [place] [phone] Consulting Clinician Cardiovascular Disease 09/14/21 documented as of this encounter
--- OUTSIDE RECORDS SUMMARY | 2024-01-14 11:07 | XMS_ITS | Encounter Summary ---
Author Organization [facility] Address [address] [place] [address] Care Team Providers Care Commercial Relief Driver Name Role Phone Bryant Crain MD Primary Care Provider [phone] Carlos Ha BLACK OXIDE OPERATOR Unavailable [phone] Elba Jett MD Primary Care Provider [phone] Reason for Visit * Reason Onset Date Comments Medication Management 04/01/2023 Encounter Details Date Type Department Care Team (Late st Contact Info) Description 04/01/2023 Telephone [facility] [address] [place] [address] Carlos Ha, BLACK OXIDE OPERATOR [address] [facility] [address] [place] [address] Medication Management Social History Tobacco [...] Ancillary Procedure [facility] Cardiology - [place] [address] [place] [address] 03/08/2024 10:[address] [facility] Cardiology - [place] [address] [place] [address] 04/05/2024 10:00 EDT Ancillary Procedure [facility] Cardiology Clinic [address] [place] [address] 04/05/2024 10:00 EDT Office Visit [facility] Cardiology Clinic [address] [place] [address] Carlos Ha NP [address] [place] [phone] documented as of this encounter Visit Diagnoses Not on filedocumented in this encounter Care Teams Commercial Relief Driver Relationship Specialty Start Date End Date Bryant Crain MD [address] [address] PCP - General 05/04/15 05/17/23 Elba Jett MD [address] [place] [phone] PCP - General Family Medicine - Primary Care 05/18/23 Carlos Ha NP [address] [place] [phone] Consulting Clinician Cardiovascular Disease 09/14/21 documented as of this encounter
--- OUTSIDE RECORDS SUMMARY | 2024-01-14 11:07 | XMS_ITS | Encounter Summary ---
Author Organization [facility] Address [address] [place] [address] Care Team Providers Care Long Distance Operator Name Role Phone Bryant Crain MD Primary Care Provider [phone] Carlos Ha SENIOR BUYER Unavailable [phone] Reason for Visit * Reason Onset Date Comments Coordination Of Care 03/25/2023 Follow-up 03/25/2023 Encounter Details Date Type Department Care Team (Late st Contact Info) Description 03/25/2023 Telephone [facility] Cardiology - [address] [place] [address] Randy Sebastian MD [address] [place] [phone] Coordination Of Care; Follow-up Social History [...] from the original note were not included. Dairy Technologist reaching out to Justin at [facility] regarding whether patient requires prophylactic antibiotics. Dairy Technologist relayed that patient does not require this. They are pleased with this and state not having further questions. No barriers to learning were identified. Randy Sebastian MD You 10 minutes ago (11:56) No antibiotic indication Thanks Donell * Telephone Encounter - Randy Sebastian MD - 03/25/2023 1156 EDT No antibiotic indication Thanks Donell * Telephone Encounter - Niharika Boyle - 03/25/2023 0832 EDT [facility] Calling because patient needs to have dental procedure completed but dentist would like to know if patient should/can be provided antiobiotics before dental visit/procedure? Please contact and advise documented in this encounter Plan of Treatment Upcoming Encounters Date Type Department Care Team (Late st Contact Info) Description 03/08/2024 9:30 EDT Ancillary Procedure [facility] Cardiology - [place] [address] [place] [address] 03/08/2024 10:15 EDT Ancillary Procedure [facility] Cardiology - [place] [address] [place] [address] 04/05/2024 10:00 EDT Ancillary Procedure [facility] Cardiology Clinic [address] [place] [phone] 04/05/2024 10:00 EDT Office Visit [facility]iology Clinic [address] [place] [phone] Carlos Ha, RAHEEM [address] [place] [phone] documented as of this encounter Visit Diagnoses Not on filedocumented in this encounter Care Teams Long Distance Operator Relationship Specialty Start Date End Date Bryant Crain MD [address] [place], [place] [phone] PCP - General 05/04/15 05/17/23 Carlos Ha NP [address] [place] [phone] Consulting Clinician Cardiovascular Disease 09/14/21 documented as of this encounter
--- OUTSIDE RECORDS SUMMARY | 2024-01-14 11:07 | XMS_ITS | Encounter Summary ---
Author Organization [facility] Address [address] [place] [address] Care Team Providers Care Forming Fixer Name Role Phone Bryant Crain MD Primary Care Provider [phone] Carlos Ha VISION SPECIALIST Unavailable Reason for Visit * Reason Onset Date Comments Appointment Related 04/19/2023 Encounter Details Date Type Department Care Team (Late st Contact Info) Description 04/19/2023 Telephone [facility] Clinic [address] [place] [address] Carlos Ha, VISION SPECIALIST 130 [facility] [address] [place] [address] Appointment Related Social History Tobacco [...] [facility] Cardiology - [place] [address] [place] [address] 03/08/2024 10:15 EDT Ancillary Procedure [facility] Cardiology - [place] [address] [place] [address] 04/05/2024 10:00 EDT Ancillary Procedure [facility] Cardiology Clinic [address] [place] [phone] 04/05/2024 10:00 EDT Office Visit [facility] Cardiology Clinic [address] [place] [phone] Carlos Ha NP [address] [place] [address]-[address] [place] [phone] documented as of this encounter Visit Diagnoses Not on filedocumented in this encounter Care Teams Forming Fixer Relationship Specialty Start Date End Date Bryant Crain MD [address] [place], [place] [phone] PCP - General 05/04/15 05/17/23 Carlos Ha NP [address] [place] [address]- [address] [place] [address] Consulting Clinician Cardiovascular Disease 09/14/21 documented as of this encounter
--- OUTSIDE RECORDS SUMMARY | 2024-01-14 11:07 | XMS_ITS | Encounter Summary ---
Author Organization [facility] Address [address] [place] [address] Care Team Providers Care Manager Instrumentation Name Role Phone Bryant Crain MD Primary Care Provider [phone] Carlos Ha FIRST LEVELER Unavailable [phone] Reason for Visit * (Routine) - Order Cancelled Specialty Diagnoses / Procedures Referred By Charo daniel Referred To Contact Diagnoses Cryptogenic stroke ([facility]) Procedures CARDIAC IMPLANT CHECK - IN CLINIC Carlos Ha, FIRST LEVELER [address] [facility] [address] [place] [address] Referral ID Status Reason Start Date Expiration Date V isits Requested Visits Authorized [id number] Order Cancelled 06/11/2020 18 18 Encounter Details Date Type Department Care Team (Late st Contact Info) Description 03/31/2023 14:30 EDT Ancillary Procedure [facility]iology Clinic [address] [place] [address] Social History Tobacco Use Types [...] Description 03/08/2024 9:30 EDT Ancillary Procedure [facility] Cardiology - [address] [place], [place] [id number] 03/08/2024 10:15 EDT Ancillary Procedure [facility] Cardiology [address] [place] [address] 04/05/2024 10:00 EDT Ancillary Procedure [facility] [address] [place] [id number] 04/05/2024 10:00 EDT Office Visit [facility] [address] [place] [address]23[address] Carlos Ha NP [address] [place] [address] [place] [phone] documented as of this encounter Visit Diagnoses Not on filedocumented in this encounter Orders Imaging Orders Without Results Count Last Order ed Date First Ordered Date CARDIAC IMPLANT CHECK - IN CLINIC 1 020 documented in this encounter Care Teams Manager Instrumentation Relationship Specialty Start Date End Date Bryant Crain MD [address] [place], [place] [phone] PCP - General 05/04/15 05/17/23 Carlos Ha NP [address] [place] [phone] Consulting Clinician Cardiovascular Disease 09/14/21 documented as of this encounter
--- OUTSIDE RECORDS SUMMARY | 2024-01-14 11:07 | XMS_ITS | Encounter Summary ---
Author Organization [facility] Address [address] [place] [address] Care Team Providers Care Part Time Flexible Clerk Name Role Phone Bryant Crain MD Primary Care Provider [phone] Carlos Ha PATIENT RELATIONS LIAISON Unavailable [phone] Reason for Visit * Reason Onset Date Comments Medication Management 04/19/2023 Encounter Details Date Type Department Care Team (Late st Contact Info) Description 04/19/2023 Telephone [facility] Card[facility] Clinic [address] [place] [address] Carlos Ha, PATIENT RELATIONS LIAISON [address] [facility] [address] [place] [address] Medication Management Social History Tobacco [...] Procedure [facility] Cardiology - [address] [place], [place] [phone] 03/08/2024 10:15 EDT Ancillary Procedure [facility] Cardiology - [facility] [address] [place] [address] 04/05/2024 10:[address] [facility] Cardiology Clinic [address] [place] [phone] 04/05/2024 10:[address] [facility] Cardiology [address] [address] Carlos Ha NP [address] [place] [phone] documented as of this encounter Visit Diagnoses Not on filedocumented in this encounter Care Teams Part Time Flexible Clerk Relationship Specialty Start Date End Date Bryant Crain MD [address] [place], [place] [id number] PCP - General 05/04/15 05/17/23 Carlos Ha NP [address] [place] [phone] Consulting Clinician Cardiovascular Disease 09/14/21 documented as of this encounter
--- OUTSIDE RECORDS SUMMARY | 2024-01-14 11:07 | XMS_ITS | Encounter Summary ---
Author Organization [facility] Address [address] [place] [address] Care Team Providers Care Recruitment Advertising Manager Name Role Phone Bryant Crain MD Primary Care Provider [phone] Carlos Ha DIE SETTER Unavailable [phone] Reason for Visit * Reason Comments Pacemaker/Device Check medtronic Encounter Details Date Type Department Care Team (Late st Contact Info) Description 03/31/2023 14:30 EDT Office Visit [facility] [address] [place] [address] Carlos Ha, DIE SETTER [address] [facility] [address] [place] [address] Cryptogenic stroke (HCC-CMS) (Primary Dx) [...] cancelled as she presented to [facility] ED on the day it was scheduled. She presented to [facility] on with complaints of fatigue, chest tightness, [...] and octreotide. She was then transferred to [facility]. Repeat EDG showed esophagitis, scattered [...] in for NSTEMI. She was transferred to [facility] for LHC 12/08/2022 with severe single [...] recently started during admission at [facility] 08/2022 Paroxysmal atrial fibrillation (2 hr episode noted on monitor 2018.Started on Eliquis. No further episodes noted) NSVT (1 episode August 2019 with negative MPI) AVB type I and II - noted on guidance consultant during recent admission Hypertension, Hyperlipidemia (LDL 65 [...] MRI, epsides of NSVT. SH Lives in [place] with spouse Has three grown children She [...] VICKY 2 READER) misc 1 [facility] lancets/blood glucose strips (ONE TOUCH COMBO [facility]) -to test blood sugar - twice daily [...] ??? Propoxyphene N-Acetaminophen Other reaction(s): Hallucinations ??? Kqapies-Sqx-Six Reductase Inhibitors ??? Trulicity [Dulaglutide] Gi Side [...] Alert and oriented x3. Gait normal [facility] Cardiology Device Visit Copy Camera Operator: Medtronic Device Type: Multiple PRINCIPAL SYSTEMS ARCHITECT-D Service: Office Visit Implant Date: 03/15/2023 Indication: [...] dilation (TID) with a value of 1.4 [facility] 12/08/2022 CORONARY ARTERIES: The coronary [...] from base to apex. The distal apex ([id number]) is concentrically involved by delayed enhancement. Left [...] 90% stenosis of RCA found on angiography. [facility] completed 12/08/22 with successful RCA [...] akira but she has been on this joint terminal attack controller I spent a total of 40 minutes [...] Procedure [facility] Cardiology - [address] [place] [phone] 03/08/2024 10:15 EDT Ancillary Procedure [facility] Cardiology [address] [place], [place] [id number] 04/05/2024 10:00 EDT Ancillary Procedure [facility] Cardiology Clinic [address] [place] [address] 04/05/2024 10:00 EDT Office Visit [facility]iology Clinic [address] [place] [address] Carlos Ha NP [address] [place] [phone] documented as of this encounter Visit Diagnoses Diagnosis Cryptogenic stroke ([facility])- Primary Unspecified cerebral artery occlusion with cerebral infarction documented in this encounter Care Teams Recruitment Advertising Manager Relationship Specialty Start Date End Date Bryant Crain MD [address] [place], [place] [phone] PCP - General 05/04/15 05/17/23 Carlos Ha NP [address] [place] [phone] Consulting Clinician Cardiovascular Disease 09/14/21 documented as of this encounter
--- OUTSIDE RECORDS SUMMARY | 2024-01-14 11:07 | XMS_ITS | Encounter Summary ---
Author Organization [facility] Address [address] [place] [address] Care Team Providers Care Box Office Clerk Name Role Phone Bryant Crain MD Primary Care Provider [phone] Carlos Ha ADVERTISING ACCOUNT REPRESENTATIVE Unavailable [phone] Elba Jett MD Primary Care Provider [phone] Reason for Visit * Reason Onset Date Comments Follow-up 04/15/2023 Encounter Details Date Type Department Care Team (Late st Contact Info) Description 04/15/2023 Telephone [facility] Card[facility] Clinic [address] [place] [address] Carlos Ha, ADVERTISING ACCOUNT REPRESENTATIVE [address] [facility] [address] [place] [address] Follow-up Social History Tobacco Use [...] Encounter - Fan Schaefer RN - 04/15/2023 1620 EDT Spoke with patient on the phone and relayed information from provider as requested. Patient verbalized understanding. documented in this encounter Plan of Treatment Upcoming Encounters Date Type Department Care Team (Late st Contact Info) Description 03/08/2024 9:30 EDT Ancillary Procedure [facility] Cardiology - [address] [place], [place] [phone] 03/08/2024 10:15 EDT Ancillary Procedure [facility] Cardiology - [address] [place] [address] 04/05/2024 10:00 EDT Ancillary Procedure [facility] Cardiology Clinic [address] [place] [phone] 04/05/2024 10:00 EDT Office Visit [facility] Cardiology Clinic [address] [place] [address] Carlos Ha NP [address] [place] [address] [place] [phone] documented as of this encounter Visit Diagnoses Not on filedocumented in this encounter Care Teams Box Office Clerk Relationship Specialty Start Date End Date Bryant Crain MD [address] [place] [address] PCP - General 05/04/15 05/17/23 Elba Jett MD [address] [place] [phone] PCP - General Family Medicine - Primary Care 05/18/23 Carlos Ha NP [address] [place] [phone] Consulting Clinician Cardiovascular Disease 09/14/21 documented as of this encounter
--- OUTSIDE RECORDS SUMMARY | 2024-01-14 11:07 | XMS_ITS | Encounter Summary ---
Author Organization [facility] Address [address] [place] [address] Care Team Providers Care Sling Operator Name Role Phone Carlos Ha NP Unavailable [phone] Elba Jett MD Primary Care Provider [phone] Reason for Referral * (Routine/Next Available) - Authorization Not Required Specialty Diagnoses / Procedures Referred By Contac t Referred To Contact Diagnoses Cardiomyopathy (HCC-CMS) Procedures CARDIAC IMPLANT CHECK - REMOTE MONITOR Carlos Ha NP [address] [facility] [address] [place] [address] [facility] Referral ID Status Reason Start Date Expiration Date Visits Requested Visits Authorized [id number] Authorization Not Required 09/28/2023 36 36 * (Routine/Next Available) - Authorization Not Required Specialty Diagnoses / Procedures Referred By Contac t Referred To Contact Diagnoses Cardiomyopathy (HCC-CMS) Procedures CARDIAC IMPLANT CHECK - IN CLINIC Carlos Ha NP [address] [employer] [address] [place] [address] [facility] Referral ID Status Reason Start Date Expiration Date Visits Requested Visits Authorized [id number] Authorization Not Required 09/28/2023 36 36 Encounter Details Date Type Department Care Team (Late st Contact Info) Description 09/28/2023 Orders Only [facility] - [facility] Cardiology Clinic [address] [place], [place] [address] Carlos Ha NP [address] [facility] [address] [place] [phone] Cardiomyopathy ([facility]) (Primary Dx) Social History Tobacco [...] EDT Ancillary Procedure [facility] Cardiology - [facility] [address] [place], [place] [phone] 03/08/2024 10:15 EDT Ancillary Procedure [facility] Cardiology - [facility] [address] [place], [place] [phone] 04/05/2024 10:00 EDT Ancillary Procedure [facility] Cardiology Clinic [address] [place], [place] [phone] 04/05/2024 10:00 EDT Office Visit [facility] Cardiology Clinic [address] [place] [address] Carlos Ha NP [address] [facility] [address] [place] [address] Scheduled Orders Name Type Priority [...] cardiomyopathies documented in this encounter Care Teams Sling Operator Relationship Specialty Start Date End Date Elba Jett MD [address] [place] [phone] PCP - General Family Medicine - Primary Care 05/18/23 Carlos Ha NP [address] [place] [address] [address] [place] [phone] Consulting Clinician Cardiovascular Disease 09/14/21 documented as of this encounter
--- OUTSIDE RECORDS SUMMARY | 2024-01-14 11:07 | XMS_ITS | Encounter Summary ---
Author Organization [facility] Address [address] [place] [address] Care Team Providers Care Borematic Machine Operator Name Role Phone Carlos Ha ELECTROLYSIS OPERATOR Unavailable [phone] Elba Jett MD Primary Care Provider [phone] Reason for Visit * Reason Onset Date Comments Patient Outreach 06/03/2023 Encounter Details Date Type Department Care Team (Late st Contact Info) Description 06/03/2023 Telephone [facility] [address] [place] [address] Carlos Ha, ELECTROLYSIS OPERATOR [address] [facility] [address] [place] [address] Patient Outreach Social History Tobacco [...] she can cancel device check scheduled at [facility]. She is not currently taking Jardiance. RUTH to Carlos * Telephone Encounter - Carlos Ha NP - 06/03/2023 1404 EST Can you also have her increase her Spironolactone to 25 mg daily. Labs look good. * Telephone Encounter - Fan Marinelli RN - 06/03/2023 1241 EST Carlos- Does the patient need to have device checked in 2 weeks at [facility] Cardiology? * Telephone Encounter - Natalie Aguirre - 06/03/2023 1203 EST Lefty and Joanna came to check out and wanted to know if Joanna's Device check that is scheduled with [facility]iology on 06/18 is still needed. Joanna stated that she thought that she had her device checked at today's appointment. Patient asking that I give her a call back when I find out if her doctors hospital appointment is needed. documented in this encounter Plan of Treatment Upcoming Encounters Date Type Department Care Team (Late st Contact Info) Description 03/08/2024 9:30 EDT Ancillary Procedure [facility] Cardiology - [address] [place] [address] 03/08/2024 10:15 EDT Ancillary Procedure [facility] Cardiology - [address] [place] [address] 04/05/2024 10:00 EDT Ancillary Procedure [facility] Cardiology Clinic [address] [place] [phone] 04/05/2024 10:00 EDT Office Visit [facility] Cardiology Clinic [address] [place] [phone] Carlos Ha NP [address] [place] [address]-A [address] [place] [address] documented as of this encounter Visit Diagnoses Not on filedocumented in this encounter Care Teams Borematic Machine Operator Relationship Specialty Start Date End Date Elba Jett MD [address] [place] [address] PCP - General Family Medicine - Primary Care 05/18/23 Carlos Ha NP [address] [address] [phone] Consulting Clinician Cardiovascular Disease 09/14/21 documented as of this encounter
--- OUTSIDE RECORDS SUMMARY | 2024-01-14 11:07 | XMS_ITS | Clinical Summary ---
Author Organization [facility] Address [address] [place] [address] Care Team Providers Care Attic Blower Name Role Phone Carlos Ha DAIRY WORKER Unavailable [phone] Elba Jett MD Primary Care Provider [phone] Allergies Active Allergy Reactions Criticality Noted Date [...] 05/18/2023 Propoxyphene N-Acetaminophen 01/27/2011 Other reaction(s): Hallucinations Uvrlfji-Zhe-Wdz Reductase Inhibitors 01/18/2020 Dulaglutide 07/10/2020 Gi Side [...] with long-term current use of insulin ([facility]) by [facility] (non-drug; combo route) route daily. One touch verio meter or best covered by insurance. 1 Each 10/02/2020 Active flash glucose scanning reader (FREESTYLE VICKY 2 READER) [facility] 1 Device by [facility] (non-drug; combo route) [...] be different from the original. 2021-09-16 [facility] MGP Verbal BRUNA: permission to speak with Lefty Patricia Hart (.) Patient has given permission for [facility] to verbally discuss the following information [...] if rash returns. PAF (paroxysmal atrial fibrillation) ([facility]) 0 02/16/2023 ASCVD (arteriosclerotic cardiovascular disease) 12/08/2022 Chronic heart failure with p reserved ejection fraction ([facility]) 12/01/2022 AVB (atrioventricular block) 11/24/2022 Gastrointestinal hemorrhage 11/11/2022 Fatigue 12/04/2020 Last Assessment & Plan: ?cardiac vs orthostatic hypotension vs glucose regulation. Has upcoming ECHO scheduled. Discussed checking BP at home with lightheadedness. Has upcoming visit with PCP for further w/up. Will reach out to lacquer maker as well. We did discuss giving her body time to adjust to BG's normalizing, did lower lantus and humalog today. Osteopenia after menopause 10/02/2020 Last Assessment & Plan: Get updated DEXA scan at same clinic [facility]. Ordered faxed. Request disk of images to bring to next visit. Continue with DEXA every 2 years. Hypercalcemia 10/02/2020 Last Assessment & Plan: Stable. Primary hyperparathyroidism ([facility]) 10/02/2020 Last Assessment & Plan: Encouraged to increase hydration 5-6 bottles water/day, this can include tea/crystal light. Will check calcium levels yearly, more often with change in kidney function. Stage 3b chronic kidney disease ([facility]) 2020 Last Assessment & Plan: Stable. Dilated cardiomyopathy ([facility]) 02/23/2020 Last Assessment & Plan: Improved EF on echo 11/2020 (55%) Ventricular tachycardia ([facility]) 11/23/2019 Last Assessment & Plan: No further [...] current dose of Repatha Cerebrovascular accident (CVA) ([facility]) Current use of group home 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 Last Assessment & Plan: Patient is taking and tolerating apixaban without overt signs of bleeding. Will check labs including renal function today. skilled nursing current use of insulin ([facility]) 06/01 Last Assessment & Plan: Pt. is taking and tolerating Eliquis without overt signs of bleeding Essential hypertension 06/01/2019 Last Assessment & Plan: Relatively well controlled Paroxysmal atrial fibrillation ([facility]) 019 Last Assessment & Plan: She is appropriately anticoagulated for stroke risk reduction. Diabetes mellitus, type 2 ([facility]) 01/26/2011 Overview: On metformin On metformin Last [...] or elevations >200. MALB today. Given [facility] HAP program info to see if qualifies. Rosacea 01/26/2011 Overview: previously on Elidel previously on Elidel Duodenal erosion Esophagitis Blood loss anemia Hypertrophic cardiomyopathy ([facility]) Edema of right lower extremity Resolved Problems Problem Noted Date Diagnosed Date Resolved Date NSTEMI (non-ST elevated myoc ardial infarction) ([facility]) 12/02/2022 01/05/2023 Elevated troponin 11/24/2022 01/05/2023 Dyslipidemia [...] 11/14/2022 NSTEMI (non-ST elevated myoc ardial infarction) ([facility]) 12/07/2022 Chest pain 01/05/2023 Encounters Date Type Department Care Team Description 12/13/2023 Lab Requisition [facility] Pathology & Laboratory Medicine - [address] [address] Outr Resulting Lab, Provider from Last 3 Months Medical History Medical History Date Comments Nonrheumatic aortic valve stenosis 06/01/2019 Mixed hyperlipidemia 06/05/2019 Essential hypertension 06/01/2019 Paroxysmal atrial fibrillation ([facility]) 019 Cerebrovascular accident (CVA) ([facility]) 019 Diabetes mellitus, type 2 ([facility]) 01/26/2011 On metformin On metformin Social History [...] [facility] [place] [place] [address] 03/08/2024 10:15 EDT Ancillary Procedure [facility] [place] [address] 04/05/2024 10:00 EDT Ancillary Procedure [facility] [address] [place] [phone] 04/05/2024 10:00 EDT Office Visit [facility] [address] [place] [address] [phone] Carlos Ha NP [address] [facility] [address] [place] [phone] Health Maintenance Due Date Last Done [...] 08/01/2021, 06/05/2019 Medical Devices Implanted Type Area Regional Liaison Device Identifier Shelf Expiration Date Model / Serial / Lot Defibrillator Multi Chamber Transportation Lead D Mri Comp [id number] Amplia [id number] - [id number] Implanted:Qty: 1 on 03/15/2023 by Lefty Moss MD at [facility] ICD Left: Chest [employer] [id number] 05/04/2024 [id number] 4 / [id number] 3S / Cardiac Lead Icd Tripolar Endocardium [id number] Sprint Quattro [id number] - [id number] Implanted:Qty: 1 on 03/15/2023 by Lefty Moss MD at [facility] Lead Left: Heart [employer] [id number] 10/28/2024 [id number] 5 / [id number] 7V / Lead Pacemaker Endocardial Biplr Act Fixtn [id number] Select[employer] [id number] - [id number] Implanted:Qty: 1 on 03/15/2023 by Lefty Moss MD at [facility] Lead Left: Heart [employer] [id number] 01/19/2025 3830-6 9C M / [id number] 3V / Lead Pacemaker Endocardial Biplr Act Fixtn [id number] Capsurefix Novus [id number] - [id number] Implanted:Qty: 1 on 03/15/2023 by Lefty Moss MD at [facility] Lead Left: Heart [employer] [id number] 07/09/2024 5076-4 5 / [id number] 2V / Stent System 3.50mm X 33mm Rapid Exchange Xience Skypoint Everolimus Eluting Coronary - [id number] Implanted:Qty: 1 on 12/08/2022 by Edgardo Ha MD at [facility] Stent Right: Coronary [employer] [id number] / / Description:Mid RCA Procedures Procedure [...] HEMOGLOBIN A1C Routine 11/11/2022 13:24 EDT URINE [id number] RATIO (ACR) Routine 08/05/2021 15:07 EST Type 2 diabetes mellitus with hyperglycemia, with long-term current use of insulin ([facility]) (HCC) from Last 3 Months or Most Recently Relevant to Health Maintenance Results * (ABNORMAL) SPEP, INCLUDES QUANTITATION OF MONOCLONAL SPIKE PERFORMABLE (12/13/2023 9:14 EDT) Albumin % 60.0 55.8 - 66.1 % 12/14/2023 12:34 [facility] Albumin g/dL 3.8 3.6 - 5.2 g/dL 12/14/2023 12:34 [facility] Alpha-1 % 4.9 2.9 - 4.9 % 12/14/2023 12:34 [facility] Alpha-1 g/dL 0.30 0.15 - 0.40 g/dL 12/14/2023 12:34 [facility] Alpha-2 % 11.4 7.1 - 11.8 % 12/14/2023 12:34 [facility] Alpha-2 g/dL 0.70 0.50 - 1.00 g/dL 12/14/2023 12:34 [facility] Beta % 13.4(H) 8.4 - 13.1 % 12/14/2023 12:34 [facility] Beta g/dL 0.80 0.60 - 1.20 g/dL 12/14/2023 12:34 [facility] Gamma % 10.3(L) 11.1 - 18.8 % 12/14/2023 12:34 EDT [facility] Gamma g/dL 0.60 0.60 - 1.60 g/dL 12/14/2023 12:34 EDT [facility] SPEP Comment No apparent monoclonal protein seen on serum electrophoresis 12/14/2023 12:34 EDT [facility] Comment:See scanned/suppleme ntary report. Total Protein 6.3 6.3 - 8.2 g/dL 12/14/2023 12:34 EDT [facility] Blood VENOUS BLOOD / Unknown 12/13/2023 9:14 EDT 12/13/2023 17:12 EDT Provider Outr Resulting Lab CHEMISTRY & BLOOD GAS ORDERABLES Performing Organization Address City/[facility]/ZIP Co de Phone Number [facility] [address] [place] [address] * LYME AB (12/13/2023 9:14 EDT) Lyme Ab Negative Negative 12/14/2023 13:36 EDT [facility] Blood VENOUS BLOOD / Unknown 12/13/2023 9:14 EDT 12/13/2023 17:12 EDT Provider Outr Resulting Lab IMMUNOLOGY A ND SEROLOGY ORDERABLES Performing Organization Address City/[facility]/ZIP Co de Phone Number [facility] [address] [place] [address] * PROTEIN, TOTAL (12/13/2023 9:14 EDT) Blood VENOUS BLOOD / Unknown 12/13/2023 9:14 EDT 12/13/2023 17:12 EDT Provider Outr Resulting Lab CHEMISTRY & BLOOD GAS ORDERABLES Performing Organization Address City/[facility]/ZIP Co de Phone Number [facility] [address] [place] [address] * (ABNORMAL) LIPID PROFILE (INCLUDES CHOLESTEROL, TRIGLYCERIDES, HDL, LDL) (12/03/2022 23:53 EDT) Cholesterol 107 <200 mg/dL 12/04/2022 0:16 EDT [facility] Comment:Note that therapeuti c goals will differ between patients based on cardiac risk factors and current medical therapy. HDL 40(L) >=50 mg/dL 12/04/2022 0:16 T [facility] Comment:Note that therapeuti c goals will differ between patients based on cardiac risk factors and current medical therapy. LDL, Calculated 29 <160 mg/dL 0:16 EDT [facility] Comment:Note that therapeuti c goals will differ between patients based on cardiac risk factors and current medical therapy. Triglyceride 188(H) <=150 mg/dL 12/04/2022 0:16 T [facility] Comment:Note that therapeuti c goals will differ between patients based on cardiac risk factors and current medical therapy. Chol/HDL Ratio 2.7 See Note 12/04/2022 0:16 T [facility] Comment:No reference range h as been established for CHOL/HDL ratio. Non HDL Cholesterol 67 <160 mg/dL 12/04/2022 0:16 [facility] Comment:Note that therapeuti c goals will differ between patients based on cardiac risk factors and current medical therapy. Blood VENOUS BLOOD / Unknown Venipuncture / Unknown 12/03/2022 23:53 EDT 12/04/2022 0:00 EDT Darion Tinajero MD CHEMISTRY & BLOOD GA S ORDERABLES [facility] [address] [place] [address] * (ABNORMAL) HEMOGLOBIN A1C (11/11/2022 13:24 EDT) Hemoglobin A1c 7.1(H) <5.7 % 11/11/2022 16:36 EDT [facility] Comment: Glycemic Status References: Normal: ??<5.7% Pre-Diabetes: ??5.7% - 6.4% Diagnostic of Diabetes: ??> or = 6.5% (if confirmed) Est Avg Glucose 157 mg/dL 16:36 EDT [facility] Comment:The eAG represents t he A1c result expressed as average glucose in mg/dL. Blood VENOUS BLOOD / Unknown IV Draw / Unknown 11/11/2022 13:24 EDT 11/11/2022 13:35 EDT Stephon Sosa CHEMISTRY & BLOOD GA S ORDERABLES [facility] [address] [place] [address] * (ABNORMAL) URINE [id number] RATIO (ACR) (08/05/2021 15:07 EST) Albumin, Urine 47.2 See Note mg/dL 2021 18:46 [facility] Comment: NOTE: Reference range not established Creatinine, Urine 102.8 See Note mg/dL 08/05/2021 18:46 [facility] Comment: NOTE: Reference range not established Lab Urine Albumin to Creatinine Ratio 459(H) <30 ??g/mg Creatinine 08/05/2021 18:46 [facility] Comment: Urine Albumin/Creatinine Ratio: Normal: <30 ug/mg Creatinine Moderately increased albuminuria: 30-300 ug/mg Creatinine Meggan increased albuminuria: >300 ug/mg Creatinine Urine URINE SPECIMEN COLLECTION, CLEAN CATCH / Unknown Urine Collect / Unknown 08/05/2021 15:07 EST 08/05/2021 15:07 EST Sarika Zamudio NP CHEMISTRY & BLOOD GAS ORDERABLES [facility] [address] [place] [address] from Last 3 Months or Most Recently Relevant to Health Maintenance Advance Directives For more information, please contact: [phone] Documents on File Type Date Recorded Patient Public Welfare Worker Expl anation Advance Directive 11/19/2022 11:05 [place] [...] Made the Decision? Default/Not Discussed Care Teams Attic Blower Relationship Specialty Start Date End Date Elba Jett MD [address] [place] [phone] PCP - General Family Medicine - Primary Care 05/18/23 Carlos Ha NP [address] [place] [address] [address] [place] [phone] Consulting Clinician Cardiovascular Disease 09/14/21
--- OUTSIDE RECORDS SUMMARY | 2024-01-14 11:07 | XMS_ITS | Encounter Summary ---
Author Organization [facility] Address [address] [place] [address] Care Team Providers Care Big Data Analytics Lead Name Role Phone Carlos Ha DIESEL ENGINE PIPE FITTER Unavailable [phone] Elba Jett MD Primary Care Provider Reason for Visit * Reason Onset Date Comments Appointment Related 06/15/2023 Encounter Details Date Type Department Care Team (Late st Contact Info) Description 06/15/[address] [address] Cardiology, Med [address] [place] [address] Appointment Related Social History Tobacco Use Types [...] Procedure [facility] Cardiology - [address] [place] [address] 03/08/2024 10:15 EDT Ancillary Procedure [facility] Cardiology [address] [place] [address] 04/05/2024 10:00 EDT Ancillary Procedure [facility] [address] [place] [address] 04/05/2024 10:00 EDT Office Visit [facility] [address] [place] [address] Carlos Ha NP [address] [place] [address] [address] [place] [phone] documented as of this encounter Visit Diagnoses Not on filedocumented in this encounter Care Teams Big Data Analytics Lead Relationship Specialty Start Date End Date Elba Jett MD [address] [place] [phone] PCP - General Family Medicine - Primary Care 05/18/23 Carlos Ha NP [address] [place] [address] [phone] Consulting Clinician Cardiovascular Disease 09/14/21 documented as of this encounter
--- OUTSIDE RECORDS SUMMARY | 2024-01-14 11:08 | XMS_ITS | Encounter Summary ---
Author Organization [facility] Address [address] [place] [address] Care Team Providers Care Food Safety Specialist Name Role Phone Bryant Crain MD Primary Care Provider [phone] Carlos Ha FOOD TRUCK CATERER Unavailable [phone] Reason for Referral * Cardiology (Routine/Next Available) - Authorized Specialty Diagnoses / Procedures [facility] Referred To Contact Diagnoses NSTEMI (non-ST elevated myocardial infarction) (HCC-CMS) Hypertrophic cardiomyopathy (HCC-CMS) NSVT (nonsustained ventricular tachycardia) (HCC-CMS) Procedures CARDIAC EVENT MONITOR AR XTRNL MOBILE CV TELEMETRY W/I&REPORT 30 DAYS AR XTRNL PT ACTIVTD ECG DWNLD W/R&I </30 DAYS Shawna Terry MD [facility] [address] [phone] [facility] Referral ID Status Reason Start Date Expiration Date V isits Requested Visits Authorized [id number] Authorized 11/14/2022 1 1 Reason for Visit * Cardiology (Routine/Next Available) - Authorized Specialty Diagnoses / Procedures Referred By [facility]ac t Referred To Contact Diagnoses NSTEMI (non-ST elevated myocardial infarction) (HCC-CMS) Hypertrophic cardiomyopathy (HCC-CMS) NSVT (nonsustained ventricular tachycardia) ([facility]) Procedures CARDIAC EVENT MONITOR AR XTRNL MOBILE CV TELEMETRY W/I&REPORT 30 DAYS AR XTRNL PT ACTIVTD ECG DWNLD W/R&I </30 DAYS Shawna Terry MD [facility] [address] [place] [phone] [facility] Referral ID Status Reason Start Date Expiration Date V isits Requested Visits Authorized [id number] Authorized 11/14/2022 1 1 Encounter Details Date Type Department Care Team (Latest Contact Info) Description 12/30/2022 8:57 EDT - 12/30/2022 23:59 EDT Hospital Encounter [facility] Non-Invasive Cardiology - [address] [address] NSTEMI (non-ST elevated myocardial infarction) ([facility]); Hypertrophic cardiomyopathy ([facility]); NSVT (nonsustained ventricular tachycardia) ([facility]) Discharge Disposition: Home or Self Care [...] current use of insulin ([facility]) by [facility] (non-drug; combo route) route daily. One touch [...] glucose scanning reader (FREESTYLE VICKY 2 READER) [facility] 1 Device by [facility] (non-drug; combo route) route daily. Dispense one [...] 03/08/2024 9:30 EDT Ancillary Procedure [facility] [place] [address] 03/08/2024 10:15 EDT Ancillary Procedure [facility] [place] [address] 04/05/2024 10:00 EDT Ancillary Procedure [facility] [address] [place] [address] 04/05/2024 10:00 EDT Office Visit [facility] [address] [place] [address] Carlos Ha NP [address] [facility] [address] [phone] documented as of this encounter Procedures Procedure Name Priority Date/Time Associated Diagnosis Comments 30 DAY BARIATRIC COORDINATOR Routine 12/30/2022 8:57 EDT NSTEMI (non-ST elevated [...] tachycardia documented in this encounter Care Teams Food Safety Specialist Relationship Specialty Start Date End Date Bryant Crain MD [address] [place] [address] PCP - General 05/04/15 05/17/23 Carlos Ha NP [address] [facility] [address] [place] [address] Consulting Clinician Cardiovascular Disease 09/14/21 documented as of this encounter
--- OUTSIDE RECORDS SUMMARY | 2024-01-14 11:08 | XMS_ITS | Encounter Summary ---
Author Organization [facility] Address [address] [place] [address] Care Team Providers Care Sheriff'S Officer Name Role Phone Bryant Crain MD Primary Care Provider [phone] Carlos Ha CRIME LAB TECHNICIAN Unavailable [phone] Reason for Visit * Auth/Cert (Routine) Specialty Diagnoses / Procedures [facility] Referred To Contact Diagnoses Hypertrophic cardiomyopathy (HCC-CMS) PAF (paroxysmal atrial fibrillation) (HCC-CMS) Hypertrophic cardiomyopathy (HCC-CMS) (HCC) [I42.2] PAF (paroxysmal atrial fibrillation) (HCC-CMS) (HCC) [I48.0] Procedures NC INSJ/RPLCMT PERM DFB W/TRNSVNS LDS 1/DUAL CHMBR ICD New System Dual Lefty Moss MD [address] [phone] Referral ID Status Reason Start Date Expiration Date Visits Re quested Visits Authorized [id number] 02/16/2023 1 1 Encounter Details Date Type Department Care Team (Late st Contact Info) Description 03/15/2023 8:30 EDT - 03/15/2023 10:30 EDT Surgery [place] [address] EP Lab [address] [place], [place] [address] Lefty Moss MD [address] [place] [phone] ICD BI-V New Surgery Details Date/Time Status Location OR Service Patient Class Case Class Case Type Trauma Case? 03/15/23 0830 Posted [facility] EP Lab EP Lab 2 Cardiovascular [...] Noted ??? *PAF (paroxysmal atrial fibrillation) (HCC-CMS) ([facility]) 02/16/2023 ??? Hypertrophic cardiomyopathy (HCC-CMS) ([facility]) Resolved Hospital Problems No resolved problems to display. Principal Procedure: Implantable Cardioverter Defibrillator (ICD) Date: 03/15/2023 Procedure:??Biventricular ICD implant Indication:??heart block, ventricular tachycardia, cardiomyopathy and high risk of sudden cardiac pneumatic tube operator:??Lefty Moss MD Fellow: No Fellow ?? Brief narrative: RA to RAA RV to bundle of his RV to RV apical septum Device mode: DDD Lower rate: 60 Generator Manufactor: ERN Contrast:?? 0 cc No immediate complication noted [...] Pacemaker device interrogation in 3 months at [facility] cardiology on 06/18/23 Allergies and Immunizations [...] ??? Propoxyphene N-Acetaminophen Other reaction(s): Hallucinations ??? Rnvwadr-Ebr-Lji Reductase Inhibitors ??? Trulicity [Dulaglutide] Gi Side [...] 03/16/2023 10:30 AM ?? Clinical History/comments: s/p batch unit treater-d, heart block, cardiomyopathy; ?? Comparison: 1 day prior. ?? Technique: Frontal and lateral views of the chest. ?? Findings: ?? Lungs: Normal. Pleura/diaphragms: Normal.XR CHEST 2 VIEWS 03/16/2023 10:30 AM ?? Clinical History/comments: s/p batch unit treater-d, heart block, cardiomyopathy; ?? Comparison: 1 day [...] 11/11/2022 Discharge Follow Up Appointments Scheduled with [facility] Upcoming Appointments Mar 31, 2023 14:30 PPM/ICD Device Check - In Clinic with [facility] CARDIAC DEVICE 1 [facility] Cardiology Clinic (--) [address] [place] [address] Please bring any insurance information and a copayment if required by your insurance company. Mar 31, 2023 14:30 Office Visit Medium with Carlos Ha NP [facility] Cardiology Clinic (--) [address] [place] [address] May 18, 2023 14:00 Office Visit with Randy Sebastian MD [facility] Cardiology - [place] (--) [address] [place] [address] Kerline Ann PA-C 03/16/2023 12:03 The patient [...] check: March 25 at 11:00am Dr. Crain [phone] Device check: June 18 at 1:00pm Device Clinic [facility] Cardiology [phone] Should the above appointment(s) not work, please call the number listed to reschedule a time that works for you. We are here to help, so should you need assistance prior to your procedure, please feel free to call anyone listed below with questions. EP Financial Services Auditor - [phone]-if you need to reschedule your procedure [facility] Device Clinic nurse - [phone]~ Zakia Please let me know you have [...] as soon as possible at [place] x [phone]. Do not hesitate to call emergency personnel [...] you travel by air please inform the ticket collector or usher & airport security of your device (ICD). You must be hand searched verses magnetic field. Know your medicines, keep a list with you and take them as prescribed. Family members should learn CPR and are encouraged to become certified if they are capable of doingso. Contact the [employer] for more details. Please tell [...] 4 times /year. Our Outpatient Cardiology Clinic/ [facility] is located at [address] [place] [address] in [place]. These appointments will take approximately 20 minutes and you will be reminded of this date by mail. Clinics are also held in [facility]/[place], [place], [facility]/[place], [facility], [facility]/[place],[facility]/ [place] and [facility]/[place]. We will make arrangements for your follow [...] hesitate to call the cardiac arrhythmia service [phone] or [phone] or1 extension [phone]. For scheduling of appointments and related questions, please call [phone] or extension [phone]. documented in this encounter Medications at Time [...] long-term current use of insulin ([facility]) by misc (non-drug; combo route) route daily. [...] glucose scanning reader (FREESTYLE LO 2 READER) [facility] [...] 01/18/2020 lancets/blood glucose strips (ONE TOUCH COMBO [facility]) -to test blood sugar - twice daily [...] -Continue current management -Post procedure x-ray -Hold BOND BROKER eliquis 48 hours post procedure Kerline Ann PA-C 03/15/2023 11:50 * Zakia Dixon RN - 03/08/2023 1003 EDT Images from the original note were not included. [address] [place] [address] 03/08-I spoke with pt and her regarding [...] you go home, you will need a sales driver. 14. The pre-registration department may call [...] or you may prefer to have your sales driver drop you off at the front entrance. 1. The registration staff will direct you to the surgical waiting room. Please check in with the appliquer and they will notify pre op of [...] check: March 25 at 11:00am Dr. Crain [phone] Device check: June 18 at 1:00pm Device Clinic [facility] Cardiology [phone] Should the above appointment(s) not work, please call the number listed to reschedule a time that works for you. We are here to help, so should you need assistance prior to your procedure, please feel free to call anyone listed below with questions. EP Financial Services Auditor - [phone]-if you need to reschedule your procedure [facility] Device Clinic nurse - [phone] Koehler Please let me know you have [...] orders for this visit: Hypertrophic cardiomyopathy (HCC-CMS) ([facility]) - CASE REQUEST EP LAB - CASE REQUEST EP LAB PAF (paroxysmal atrial fibrillation) (HCC-CMS) ([facility]) - CASE REQUEST EP LAB [...] History: Diagnosis Date ??? Cerebrovascular accident (CVA) ([facility]) 06/01/2019 ??? Diabetes mellitus, type 2 ([facility]) 01/26/2011 On metformin On metformin ??? Essential [...] ??? Propoxyphene N-Acetaminophen Other reaction(s): Hallucinations ??? Ntvdpnu-Dqr-Lqy Reductase Inhibitors ??? Trulicity [Dulaglutide] Gi Side [...] glucose scanning reader (FREESTYLE LO 2 READER) [facility], 1 Device by [facility] [...] ??? lancets/blood glucose strips (ONE TOUCH COMBO [facility]), -to test blood sugar - twice daily [...] cardiomyopathy and high risk of sudden cardiac pneumatic tube operator: Lefty Moss MD Fellow: No Fellow Brief narrative: RA to RAA RV to bundle of his RV to RV apical septum Device mode: DDD Lower rate: 60 Generator Manufactor: ERN Contrast: 0 cc No immediate complication noted [...] The patient was considered stable to transfer cartographic designer will give 1:1 verbal report Share: No [...] of this note (via Provider Access services) CRIME LAB TECHNICIAN/PA on EP service (via Provider Access services) Attending on the EP service (via Provider Access services or PAGER #[phone]) After 16:00 development mechanic on EP service (via Provider Access services) Attending on the EP service (via Provider Access services or PAGER #[phone]) Other contact numbers: EP lab - [phone] - EP lab OR7 - [phone] EP (nurse of the day) NOD - [phone] or page [phone] ship laborer - [phone] Overhead Double page cardiology If the above [...] pacing in the future Will plan for [employer]-d conduction system pacing lead, plus ICD Indication [...] [facility] Cardiology - [facility] [address] [place] [address] 03/08/2024 10:15 EDT Ancillary Procedure [facility] Cardiology - [place] [address] [place] [address] 04/05/2024 10:00 EDT Ancillary Procedure [facility] Cardiology Clinic [address] [place] [phone] 04/05/2024 10:00 EDT Office Visit [facility] [address] [place] [address] [phone] Carlos Ha NP [address] [place] [address] [address] [place] [address] Pending Results Name Type Priority [...] EDT) 03/18/2023 11:3 2 EDT Scan 2 Vending Machine Mechanic PROCEDURE/MINOR CROW GICAL ORDERABLES * ECG REPORT - SCANNED (03/18/2023 8:34 EDT) 03/18/2023 8:34 EDT Scan 2 Vending Machine Mechanic PROCEDURE/MINOR CROW GICAL ORDERABLES * IMPLANT RECORD - SCANNED (03/17/2023 16:24 EDT) 03/17/2023 16:2 4 EDT Scan 2 Vending Machine Mechanic PROCEDURE/MINOR CROW GICAL ORDERABLES * ECG REPORT - SCANNED (03/17/2023 16:24 EDT) 03/17/2023 16:2 4 EDT Scan 2 Vending Machine Mechanic PROCEDURE/MINOR CROW GICAL ORDERABLES * (ABNORMAL) POCT GLUCOSE, INTERFACED (03/16/2023 11:36 EDT) Glucose, POC 212(H) 70 - 100 mg/dL 03/16/2023 11:44 EDT [facility] HN LAB POC COMMENT (GLUCOSE) Test Performed by Nursing Services 03/16/2023 11:44 EDT [facility] Blood CAPILLARY BLOOD / Unknown 03/16/2023 11:36 EDT 03/16/2023 11:44 EDT Kerline Ann PA-C POINT OF CARE TEST O RDERABLES [facility] [address] [place] [address] * XR CHEST 2 VIEWS (03/16/2023 10:27 EDT) Anatomical Region Laterality Modality Computed Radiogr aphy 03/16/2023 10:4 0 EDT Impressions 03/16/2023 10:40 EDT Satisfactory postprocedural chest radiograph. [id number] Narrative 03/16/2023 10:40 EDT XR CHEST 2 VIEWS ??03/16/2023 10:30 AM Clinical History/comments: s/p batch unit treater-d, heart block, cardiomyopathy; Comparison: 1 day prior. [...] VIEWS 03/16/2023 10:30 AM Clinical History/comments: s/p batch unit treater-d, heart block, cardiomyopathy; Comparison: 1 day prior. [...] Bones: Normal. IMPRESSION Satisfactory postprocedural chest radiograph. [id number] Lefty Moss MD IMG DIAGNOSTIC I MAGING [...] 70 - 100 mg/dL 03/16/2023 9:01 EDT [facility] HN LAB POC COMMENT (GLUCOSE) Test Performed by Nursing Services 03/16/2023 9:01 EDT [facility] Blood CAPILLARY BLOOD / Unknown 03/16/2023 8:59 EDT 03/16/2023 9:01 EDT Kerline SHAVERC POINT OF CARE TEST O RDERABLES [facility] [address] [place] [address] * (ABNORMAL) POCT GLUCOSE, INTERFACED (03/15/2023 23:57 EDT) Glucose, POC 314(H) 70 - 100 mg/dL 03/15/2023 23:58 EDT [facility] HN LAB POC COMMENT (GLUCOSE) Test Performed by Nursing Services 03/15/2023 23:58 EDT [facility] Blood CAPILLARY BLOOD / Unknown 03/15/2023 23:57 EDT 03/15/2023 23:58 EDT Lefty Moss MD POINT OF CARE TE ST ORDERABLES Performing Organization Address City/[facility]/ZIP Co de Phone Number [facility] [address] [place] [address] * (ABNORMAL) POCT GLUCOSE, INTERFACED (03/15/2023 20:19 EDT) Glucose, POC 467(H) 70 - 100 mg/dL 03/15/2023 20:21 EDT [facility] HN LAB POC COMMENT (GLUCOSE) Test Performed by Nursing Services 03/15/2023 20:21 EDT [facility] Blood CAPILLARY BLOOD / Unknown 03/15/2023 20:19 EDT 03/15/2023 20:21 EDT Kerline SHAVERC POINT OF CARE TEST O RDERABLES [facility] [address] [place] [address] * (ABNORMAL) POCT GLUCOSE, INTERFACED (03/15/2023 16:27 EDT) Glucose, POC 428(H) 70 - 100 mg/dL 03/15/2023 16:32 EDT [facility] HN LAB POC COMMENT (GLUCOSE) Test Performed by Nursing Services 03/15/2023 16:32 EDT [facility] Blood CAPILLARY BLOOD / Unknown 03/15/2023 16:27 EDT 03/15/2023 16:32 EDT Kerline Ann PA-C POINT OF CARE TEST O RDERABLES Performing Organization Address [facility] Co de Phone Number [facility] [address] [place] [address] * (ABNORMAL) POCT GLUCOSE, INTERFACED (03/15/2023 12:59 EDT) Glucose, POC 186(H) 70 - 100 mg/dL 03/15/2023 13:01 EDT [facility] HN LAB POC COMMENT (GLUCOSE) Test Performed by Nursing Services 03/15/2023 13:01 EDT [facility] Blood CAPILLARY BLOOD / Unknown 03/15/2023 12:59 EDT 03/15/2023 13:01 EDT Lefty Moss MD POINT OF CARE TE ST ORDERABLES Performing Organization Address [facility] Co de Phone Number [facility] [address] [place] [address] * EKG 12-LEAD (03/15/2023 12:28 EDT) 03/15/2023 12:2 8 EDT Narrative [facility] - 03/18/2023 8:23 EDT ? [facility] ? Test Date: ?2023-03-15 Pat Name: ? JOANNA GAUTAM ?Department: ?? [place] [address] ? Room: ? EP Gender: ? Female ? City Collector: ?? [id number] : ?1950 ? Requested By: CHARITY ROMO Order Number: [id number] ? Oleksandr MD: ?? SNEHA LAWRENCE MD ? Measurements Intervals ?[place] ? Rate: ? 64 ? P: ?198 NC: ? 125 ?QRS: ?28 QRSD: ? 149 [...] Date: 2023-03-15 Pat Name: JOANNA HART Department: [place] [address] Room: Gender: Female City Collector: [id number] : 1950 Requested By: CHARITY TORRES Order Number: [id number] Reading MD: SNEHA LAWRENCE MD Measurements Intervals [place] Rate: 64 P: 198 NC: 125 QRS: 28 QRSD: 149 T: 182 QT: 463 QTc: 480 Interpretive Statements ELECTRONIC ATRIAL PACEMAKER ELECTRONIC VENTRICULAR PACEMAKER Compared to ECG 01/27/2023 10:07:02 Pacing is now present I reviewed the tracing and have either agreed or edited the findings inthis report. Electronically Signed On 03-18-2023 08:23:06 EDT by KATHY HAY. Lefty Moss MD CARDIAC [facility] E[facility] * XR CHEST PORTABLE 1 VIEW (03/15/2023 12:05 EDT) Anatomical Region Laterality Modality Computed Radiogr aphy 03/15/2023 12:1 4 EDT Impressions 03/15/2023 12:14 EDT Left transvenous implantable cardioverter defibrillator with its leads projecting over the right atrium and right ventricle in this single AP view. [id number] Narrative 03/15/2023 12:14 EDT XR CHEST PORTABLE 1 VIEW ??03/15/2023 11:40 AM Clinical History/comments: s/p batch unit treater-d heart block cardiomyopathy; Comparison: Chest radiograph March [...] VIEW 03/15/2023 11:40 AM Clinical History/comments: s/p batch unit treater-d heart block cardiomyopathy; Comparison: Chest radiograph March [...] and right ventricle in this single APview. [id number] Lefty Moss MD IMG DIAGNOSTIC I MAGING ORDERABLES * ICD BI-V NEW (03/15/2023 10:47 EDT) Anatomical Region Laterality Modality Cardiac Electrop hysiology Narrative 03/16/2023 11:17 EDT Choose correct report for procedure performed: Attending: Lefty Moss MD Fellow: No Fellow Lead Former :Sabrina Bruno RN Attestation: Attending only- I,Lefty Moss MD, ??performed the entire procedure and was the initial and only author of the report. Procedure: ??[employer]- D with conduction system pacing lead. Summary [...] with conduction system pacing lead lead via [employer]-d device. On good med rx Indication History: Prior heart failure - yes NYHA class - II LVEF- Yes, 60% Date assessed : 10/2022 ? 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 NICM - yes GDMT max dose - Yes > 3 months Prior Cardiac arrest - no Prior [place] - yes- NSVT Prior RI - ??no Prior PCI - Yes Prior [...] - Through a C315 His sheath a [employer] 3830 lead was advanced to the basal [...] 70 - 100 mg/dL 03/15/2023 8:09 EDT [facility] HN LAB POC COMMENT (GLUCOSE) Test Performed by Nursing Services 03/15/2023 8:09 EDT [facility] Blood CAPILLARY BLOOD / Unknown 03/15/2023 7:55 EDT 03/15/2023 8:09 EDT Lefty Moss MD POINT OF CARE TE ST ORDERABLES [facility] [address] [place] [address] documented in this encounter Visit Diagnoses Diagnosis [...] Discontinued, Routine 2013 (Given - Provider: Lizzy Clovin RN) magnesium oxide (MAG-OX) tablet 400 mg [...] 03/16/2023 documented in this encounter Care Teams Sheriff'S Officer Relationship Specialty Start Date End Date Bryant Crain MD [address] [place] [address] PCP - General 05/04/15 05/17/23 Carlos Ha NP [address] [place] [phone] Consulting Clinician Cardiovascular Disease 09/14/21 documented as of this encounter
--- OUTSIDE RECORDS SUMMARY | 2024-01-14 11:08 | XMS_ITS | Encounter Summary ---
Author Organization [facility] Address [address] [place] [address] Care Team Providers Care Diving Fisher Name Role Phone Bryant Crain MD Primary Care Provider [phone] Carlos Ha MAILER APPRENTICE Unavailable [phone] Reason for Visit * Reason Onset Date Comments Follow-up 03/04/2023 Encounter Details Date Type Department Care Team (Late st Contact Info) Description 03/04/2023 Telephone [facility] Cardiology Clinic [address] [place] [address] Carlos Ha, MAILER APPRENTICE [address] [facility] [address] [place] [address] Follow-up Social History Tobacco Use [...] in agreement to reporting to ED at [facility]. * Telephone Encounter - Deepali Ovalles RN [...] EDT Ancillary Procedure [facility] [address] [place] [address] 03/08/2024 10:15 EDT Ancillary Procedure [facility] [address] [place] [address] 04/05/2024 10:00 EDT Ancillary Procedure [facility] [address] [place] [address] 04/05/2024 10:00 EDT Office Visit [facility] [address] [place] [address] Carlos Ha MAILER APPRENTICE [address] [place] [phone] documented as of this encounter Visit Diagnoses Not on filedocumented in this encounter Care Teams Diving Fisher Relationship Specialty Start Date End Date Bryant Crain MD [address] [place], [place] [id number] PCP - General 05/04/15 05/17/23 Carlos Ha NP [address] [place] [phone] Consulting Clinician Cardiovascular Disease 09/14/21 documented as of this encounter
--- OUTSIDE RECORDS SUMMARY | 2024-01-14 11:08 | XMS_ITS | Encounter Summary ---
Author Organization [facility] Address [address] [place] [address] Care Team Providers Care Operations Team Leader Name Role Phone Bryant Crain MD Primary Care Provider [phone] Carlos Ha SHEET TAKER Unavailable [phone] Reason for Referral * Cardiology (Routine/Next Available) - New Request Specialty Diagnoses / Procedures Referred By Contac t Referred To Contact Diagnoses Ventricular tachycardia (HCC-CMS) Procedures EKG 12-LEAD Carlos [facility] NP [address] [facility] [address] [address] Referral ID Status Reason Start Date Expiration Date V isits Requested Visits Authorized [id number] New Request 01/05/2023 1 1 * Consult (Routine/Next Available) - Specialty Report Received Specialty Diagnoses / Procedures Referred By Contac t Referred To Contact Cardiology Diagnoses Hypertrophic cardiomyopathy (HCC-CMS) Chronic heart failure with preserved ejection fraction (HCC-CMS) ASCVD (arteriosclerotic cardiovascular disease) Ventricular tachycardia (HCC-CMS) Paroxysmal atrial fibrillation (HCC-CMS) Essential hypertension Mixed hyperlipidemia Carlos Ha NP [address] [facility] [address] [place] [address] Randy Sebastian MD [address] [place] [address] Referral ID Status Reason Start Date Expiration Date Visits Requested Visits Authorized [id number] Specialty Report Received Specialty Services Required 01/05/2023 1 1 Question Answer Reason for Request: diagnostic testing completed [facility] (MADONNA X1 RCA). HCM s/p MRI. Assist [...] ejection fraction (HFpEF) (HCC-CMS) Hypertrophic cardiomyopathy (HCC-CMS) [facility] [address] [place] [address] Referral ID Status Reason Start Date Expiration Date Visits Requested Visits Authorized [id number] Authorization Not Required Continuity of Care 1 1 Encounter Details Date Type Department Care Team (Latest Contact Info) Description 01/05/2023 11:45 EDT Office Visit [facility] [address] [place] [address] Carlos Ha NP [address] [place] [address]A [address] [place] [address] Hypertrophic cardiomyopathy (HCC-CMS) (Primary Dx); [...] this encounter Progress Notes * Carlos Ha, SHEET TAKER - 01/05/2023 1145 EDT Images from the [...] was cancelled as she presented to [facility] ED on the day it was scheduled. She presented to [facility] on with complaints of fatigue, chest tightness, [...] in for NSTEMI. She was transferred to [facility] for LHC 12/08/2022 with severe [...] she has noticed improvement in hersymptoms since [facility] with PCI. I feel the same. Still weak and fatigued with most activities. [facility] Cryptogenic stroke (left MCA) 2017 with Medtronic loop 2016. ASA recently started during admission at [facility] 08/2022 Paroxysmal atrial fibrillation (2 hr episode noted on monitor 2018.Started on Eliquis. No further episodes noted) NSVT (1 episode August 2019 with negative MPI) AVB type I and II - noted on electronic device monitor during recent admission Hypertension, Hyperlipidemia (LDL 65 in 2021: She has been intolerant to multiple statins now on REPATHA) DM2 (A1C 7.1) CKD III Kidney stone 11/02 passed Duodenal ulcer and esophagitis with acute GIB admit to [facility] 11/11-11/14. D/C on Protonix. ?Parkinson's Disease SH Lives in [place] with spouse Has three grown children She [...] 1/4 needle ??? blood glucose meter by [facility] (non-drug; combo route) route daily. One touch [...] glucose scanning reader (FREESTYLE VICKY 2 READER) [facility] 1 Device by [facility] (non-drug; comboroute) route daily. Dispense one reader [...] ??? lancets/blood glucose strips (ONE TOUCH COMBO STROUD [...] ??? Propoxyphene N-Acetaminophen Other reaction(s): Hallucinations ??? Wufqirc-Qgy-Ddr Reductase Inhibitors ??? Trulicity [Dulaglutide] Gi Side [...] dilation (TID) with a value of 1.4 [facility] 12/08/2022 CORONARY ARTERIES: The coronary circulation is [...] from base to apex. The distal apex ([id number]) is concentrically involved by delayed enhancement. Left [...] 90% stenosis of RCA found on angiography. [facility] completed 12/08/22 with successful RCA stenting. -Tolerating [...] TE 01/06 Orders signed and faxed to [facility] infusion suite at [phone] weekly x three. * Sabrina Herring MA - 01/05/2023 114 EDT I called and spoke with Mirella at [facility] Cardiac rehab, she stated she would make a note to hold off on Cardiac rehab for now and await a call back from us when Joanna can resume. [phone] documented in this encounter Plan of Treatment Upcoming Encounters Date Type Department Care Team (Late st Contact Info) Description 03/08/2024 9:30 EDT Ancillary Procedure [facility] Cardiology - [address] [place] [address] 03/08/2024 10:15 EDT Ancillary Procedure [facility] Cardiology [address] [place] [address] 04/05/2024 10:00 EDT Ancillary Procedure [facility] Card[facility] Clinic [address] [place] [address] 04/05/2024 10:00 EDT Office Visit [facility] Cardiology Clinic [address] [place], [place] [phone] Carlos Ha NP [address] [place] [address] [address] [place] [address] Scheduled Referrals Name Type Priority [...] 12-LEAD Routine 01/05/2023 11:55 EDT Ventricular tachycardia ([facility]) documented in this encounter Results * ECG REPORT - SCANNED (01/11/2023 8:04 EDT) 01/11/2023 8:04 EDT Scan 2 Naval Architect Specialist PROCEDURE/MINOR CROW GICAL ORDERABLES * (ABNORMAL) FERRITIN (01/05/2023 13:19 EDT) Ferritin 6(L) 11 - 264 ng/mL 01/05/2023 14:59 EDT [facility] Blood VENOUS BLOOD / Unknown Venipuncture / Unknown 01/05/2023 13:19 EDT 01/05/2023 13:48 EDT Narrative [facility] - 01/05/2023 14:59 EDT The results of this assay can be falsely lowered due to the consumption of Biotin. Carlos Ha NP CHEMISTRY & BLOOD GA S ORDERABLES Performing Organization Address City/State/[facility] Co de Phone Number [facility] [address] [place] [address] * (ABNORMAL) TRANSFERRIN SATURATION (01/05/2023 13:19 EDT) Iron 18(L) 37 - 170 ??g/dL 01/05/2023 14:29 EDT [facility] Iron Binding Capacity 431 240 - 450 ??g/dL 01/05/2023 14:29 EDT [facility] Transferrin Saturation 4(L) 15 - 45 % 01/05/2023 14:29 EDT [facility] Blood VENOUS BLOOD / Unknown Venipuncture / Unknown 01/05/2023 13:19 EDT 01/05/2023 13:48 EDT Carlos L Ha SHEET TAKER CHEMISTRY & BLOOD GA S ORDERABLES [facility] [address] [place] [address] * (ABNORMAL) COMPLETE BLOOD COUNT AND DIFFERENTIAL (01/05/2023 13:19 EDT) WBC 8.72 4.00 - 12.40 K/cmm 01/05/2023 14:03 [facility] RBC 3.93 3.86 - 5.04 M/cmm 01/05/2023 14:03 [facility] Hemoglobin 9.0(L) 11.6 - 15.2 g/dL 01/05/2023 14:03 [facility] HCT 31.1(L) 34.9 - 44.4 % 01/05/2023 14:03 [facility] MCV 79(L) 81 - 98 fL 01/05/2023 14:03 [facility] MCH 22.9(L) 26.7 - 33.3 pg 01/05/2023 14:03 [facility] Hypochromia 2+ 01/05/2023 14:03 [facility] MCHC 28.9(L) 32.1 - 35.9 g/dL 01/05/2023 14:03 [facility] RDW-CV 17.8(H) <14.7 % 01/05/2023 14:03 [facility] RDW-SD 51.2(H) <50.4 fl 01/05/2023 14:03 [facility] Anisocytosis 1+ 01/05/2023 14:03 [facility] PLT 557(H) 141 - 377 K/cmm 01/05/2023 14:03 [facility] MPV 10.1 9.5 - 12.7 fL 01/05/2023 14:03 [facility] % Neutrophils 54.1 % 01/05/2023 14:03 [facility] % Lymphocytes 26.0 % 01/05/2023 14:03 [facility] % Monocytes 7.1 % 01/05/2023 14:03 [facility] % Eosinophils 10.1 % 01/05/2023 14:03 [facility] % Basophils 2.4 % 01/05/2023 14:03 [facility] % Immature Grans 0.3 % 01/06/20 14:03 [facility] Absolute Neutrophils 4.71 2.20 - 8.85 K/cmm 01/05/2023 14:03 [facility] Absolute Lymphocytes 2.27 1.09 - 3.30 K/cmm 01/05/2023 14:03 [facility] Absolute Monocytes 0.62 0.10 - 0.80 K/cmm 01/05/2023 14:03 [facility] Absolute Eosinophils 0.88(H) 0.03 - 0.61 K/cmm 01/05/2023 14:03 [facility] ABS Basophils 0.21(H) 0.01 - 0.11 K/cmm 01/05/2023 14:03 [facility] Absolute Immature Grans 0.03 0.00 - 0.06 K/cmm 01/05/2023 14:03 [facility] Type of Differential: Auto 01/05/2023 14:03 [facility] Blood VENOUS BLOOD / Unknown Venipuncture / Unknown 01/05/2023 13:19 EDT 01/05/2023 13:58 EDT Carlos Ha SHEET TAKER PACKAGES & DNA PROBE ORDERABLES [facility] [address] [place] [address] * EKG 12-LEAD (01/05/2023 11:55 EDT) 01/05/2023 11:5 5 EDT Narrative [facility] - 01/09/2023 12:52 EDT ? CVC ? Test Date: ?2023-01-05 Pat Name: ? JOANNA GAUTAM ?Department: ? Room: ? Gender: ? Female ? Ensemble Member: ?? EP : ?1950 ? Requested By: AMIRAH Jimenez Order Number: [id number] ? Reading MD: ?? LING CAPPS MD ? Measurements Intervals ?[place] ? Rate: ? 71 ? P: ?-44 [place]: ? 306 ?QRS: ?-25 QRSD: ? 126 [...] 01/09/2023 CVC Test Date: 2023-01-05 Pat Name: OJANNA HART Department: Room: Gender: Female Ensemble Member: EP : 1950 Requested By: AMIRAH Jimenez Order Number: [id number] Reading MD: LING CAPPS MD Measurements Intervals [place] Rate: 71 P: -44 LA: 306 QRS: -25 QRSD: 126 T: 149 [...] Carlos Ha NP CARDIAC ECG ORDERABL ES [facility] documented in this encounter Visit Diagnoses [...] 01/05/2023 documented in this encounter Care Teams Operations Team Leader Relationship Specialty Start Date End Date Bryant Crain MD [address] [place], [place] [phone] PCP - General 05/04/15 05/17/23 Carlos Ha NP [address] [place] [address] [address] [place] [phone] Consulting Clinician Cardiovascular Disease 09/14/21 documented as of this encounter
--- OUTSIDE RECORDS SUMMARY | 2024-01-14 11:08 | XMS_ITS | Encounter Summary ---
Author Organization [facility] Address [address] [place] [address] Care Team Providers Care Synthetic Staple Extruder Name Role Phone Bryant Crain MD Primary Care Provider [phone] Carlos Ha WET PROCESS MILLER HEAD Unavailable [phone] Reason for Visit * Laboratory Services (Routine/Next Available) - New Request Specialty Diagnoses / Procedures [facility] Referred To Contact Diagnoses NSTEMI (non-ST elevated myocardial infarction) (HCC-CMS) ASCVD (arteriosclerotic cardiovascular disease) Duodenal erosion Gastrointestinal hemorrhage, unspecified gastrointestinal hemorrhage type Procedures COMPLETE BLOOD COUNT Collette Park NP [address] [address] Referral ID Status Reason Start Date Expiration Date V isits Requested Visits Authorized [id number] New Request 12/09/2022 1 1 Encounter Details Date Type Department Care Team (Late st Contact Info) Description 01/05/2023 13:05 EDT Phlebotomy Only [facility] - Outpatient Phlebotomy Drawing [address] [place] [address] Lab, [facility] Op Phlebotomy NSTEMI (non-ST elevated myocardial infarction) [...] [facility] Cardiology - [place] [address] [place] [address] 03/08/2024 10:15 EDT Ancillary Procedure [facility] Cardiology - [place] [address] [place] [address] 04/05/2024 10:00 EDT Ancillary Procedure [facility] Cardiology Clinic [address] [place] [address] 04/05/2024 10:00 EDT Office Visit [facility] Cardiology Clinic [address] [place] [address] Carlos Ha NP [address] [place] [address] [address]OB[address] [place] [address] documented as of this encounter Procedures Procedure Name Priority Date/Time Associated Diagnosis Comments TRANSFERRIN SATURATION Routine 01/05/2023 13:19 EDT Blood loss anemia COMPLETE BLOOD COUNT AND DIFFERENTIAL Routine 01/05/2023 13:19 EDT Blood loss anemia FERRITIN Routine 01/05/2023 13:19 EDT Blood loss anemia documented in this encounter Results * (ABNORMAL) FERRITIN (01/05/2023 13:19 EDT) Ferritin 6(L) 11 - 264 ng/mL 01/05/2023 14:59 EDT [facility] Blood VENOUS BLOOD / Unknown Venipuncture / Unknown 01/05/2023 13:19 EDT 01/05/2023 13:48 EDT Narrative [facility] - 01/05/2023 14:59 EDT The results of this assay can be falsely lowered due to the consumption of Biotin. Carlos Ha NP CHEMISTRY & BLOOD GA S ORDERABLES [facility] [address] [place] [address] * (ABNORMAL) TRANSFERRIN SATURATION (01/05/2023 13:19 EDT) Iron 18(L) 37 - 170 ??g/dL 01/05/2023 14:29 EDT [facility] Iron Binding Capacity 431 240 - 450 ??g/dL 01/05/2023 14:29 EDT [facility] Transferrin Saturation 4(L) 15 - 45 % 01/05/2023 14:29 EDT [facility] Blood VENOUS BLOOD / Unknown Venipuncture / Unknown 01/05/2023 13:19 EDT 01/05/2023 13:48 EDT Carlos Ha NP CHEMISTRY & BLOOD GA S ORDERABLES [facility] [address] [place] [address] * (ABNORMAL) COMPLETE BLOOD COUNT AND DIFFERENTIAL (01/05/2023 13:19 EDT) WBC 8.72 4.00 - 12.40 K/cmm 01/05/2023 14:03 [facility] RBC 3.93 3.86 - 5.04 M/cmm 01/05/2023 14:03 [facility] Hemoglobin 9.0(L) 11.6 - 15.2 g/dL 01/05/2023 14:03 [facility] HCT 31.1(L) 34.9 - 44.4 % 01/05/2023 14:03 [facility] MCV 79(L) 81 - 98 fL 01/05/2023 14:03 [facility] MCH 22.9(L) 26.7 - 33.3 pg 01/05/2023 14:03 [facility] Hypochromia 2+ 01/05/2023 14:03 [facility] MCHC 28.9(L) 32.1 - 35.9 g/dL 01/05/2023 14:03 [facility] RDW-CV 17.8(H) <14.7 % 01/05/2023 14:03 [facility] RDW-SD 51.2(H) <50.4 fl 01/05/2023 14:03 [facility] Anisocytosis 1+ 01/05/2023 14:03 [facility] PLT 557(H) 141 - 377 K/cmm 01/05/2023 14:03 [facility] MPV 10.1 9.5 - 12.7 fL 01/05/2023 14:03 [facility] % Neutrophils 54.1 % 01/05/2023 14:03 [facility] % Lymphocytes 26.0 % 01/05/2023 14:03 [facility] % Monocytes 7.1 % 01/05/2023 14:03 [facility] % Eosinophils 10.1 % 01/05/2023 14:03 [facility] % Basophils 2.4 % 01/05/2023 14:03 [facility] % Immature Grans 0.3 % 01/06/20 14:03 [facility] Absolute Neutrophils 4.71 2.20 - 8.85 K/cmm 01/05/2023 14:03 [facility] Absolute Lymphocytes 2.27 1.09 - 3.30 K/cmm 01/05/2023 14:03 [facility] Absolute Monocytes 0.62 0.10 - 0.80 K/cmm 01/05/2023 14:03 [facility] Absolute Eosinophils 0.88(H) 0.03 - 0.61 K/cmm 01/05/2023 14:03 [facility] ABS Basophils 0.21(H) 0.01 - 0.11 K/cmm 01/05/2023 14:03 [facility] Absolute Immature Grans 0.03 0.00 - 0.06 K/cmm 01/05/2023 14:03 [facility] Type of Differential: Auto 01/05/2023 14:03 [facility] Blood VENOUS BLOOD / Unknown Venipuncture / Unknown 01/05/2023 13:19 EDT 01/05/2023 13:58 EDT Carlos Ha NP PACKAGES & DNA PROBE ORDERABLES [facility] [address] [place] [address] documented in this encounter Visit Diagnoses Diagnosis NSTEMI (non-ST elevated myocardial infarction) ([facility]-CMS) Acute myocardial infarction, subendocardial infarction, episode of care unspecified ASCVD (arteriosclerotic cardiovascular disease) Unspecified cardiovascular disease Duodenal erosion Duodenal ulcer, unspecified as acute or chronic, without hemorrhage, perforation, or obstruction Gastrointestinal hemorrhage, unspecified gastrointestinal hemorrhage type Blood loss anemia Iron deficiency anemia secondary to blood loss (chronic) documented in this encounter Care Teams Synthetic Staple Extruder Relationship Specialty Start Date End Date Bryant Crain MD [address] [place], [place] [phone] PCP - General 05/04/15 05/17/23 Carlos Ha NP [address] [place] [address] [address] [place] [address] Consulting Clinician Cardiovascular Disease 09/14/21 documented as of this encounter
--- OUTSIDE RECORDS SUMMARY | 2024-01-14 11:08 | XMS_ITS | Encounter Summary ---
Author Organization [facility] Address [address] [place] [address] Care Team Providers Care Petroleum Supply Specialist Name Role Phone Bryant Crain MD Primary Care Provider [phone] Calros Ha QUARTZ MINER Unavailable [phone] Elba Jett MD Primary Care Provider [phone] Reason for Visit * Reason Onset Date Comments Appointment Related 01/05/2023 Encounter Details Date Type Department Care Team (Late st Contact Info) Description 01/05/2023 Telephone [facility] Cardiology - [address] [address] Edgardo Ha MD [address] [place] [address] [address] [place] [address] Appointment Related Social History Tobacco [...] encounter Miscellaneous Notes * Telephone Encounter - Sabirna Herring MA - 01/06/2023 1149 EDT Images from the original note were not included. Carlos Ha, QUARTZ MINER Sabrina Herring MA Can you follow up with Dr. Sebastian's staff to have them schedule her in the next 2 weeks or so Thanks, Carlos Gonzalez called and spoke with Dr. Sebastian directly about seeing patient in the next two weeks. Forwarding msg from Carlos about scheduling. * Telephone Encounter - Earl Miles - 01/05/2023 1121 EDT Sabrina at [facility] called concerning Urgent ref just sent for this pt to be seen. They req we contact the pt. Please advise documented in this encounter Plan of Treatment Upcoming Encounters Date Type Department Care Team (Late st Contact Info) Description 03/08/2024 9:30 EDT Ancillary Procedure [facility] Cardiology [place] [address] 03/08/2024 10:15 EDT Ancillary Procedure [facility] Cardiology - [address] [place] [address] 04/05/2024 10:[address] [facility] Cardiology Clinic [address] [place] [phone] 04/05/2024 10:[address] [facility] Cardiology Clinic [address] [place] [address] Carlos Ha, QUARTZ MINER [address] [place] [phone] documented as of this encounter Visit Diagnoses Not on filedocumented in this encounter Care Teams Petroleum Supply Specialist Relationship Specialty Start Date End Date Bryant Crain MD [address] [place] [address] PCP - General 05/04/15 05/17/23 Elba Jett MD [address] [place] [address] PCP - General Family Medicine - Primary Care 05/18/23 Carlos Ha, QUARTZ MINER [address] [place] [phone] Consulting Clinician Cardiovascular Disease 09/14/21 documented as of this encounter
--- OUTSIDE RECORDS SUMMARY | 2024-01-14 11:08 | XMS_ITS | Encounter Summary ---
Author Organization [facility] Address [address] [place] [address] Care Team Providers Care Student Assistant Name Role Phone Bryant Crain MD Primary Care Provider [phone] Carlos Ha YOLK SPRAY DRIER Unavailable [phone] Reason for Visit * Reason Onset Date Comments Coordination Of Care 02/04/2023 Encounter Details Date Type Department Care Team (Late st Contact Info) Description 02/04/2023 Telephone [facility] Cardiology - [address] [place] [address] Tyrone Burris, RN Coordination Of [...] - 02/04/2023 0901 EDT Fax sent to [employer] [phone] for HCM lab request documented in this encounter Plan of Treatment Upcoming Encounters Date Type Department Care Team (Late st Contact Info) Description 03/08/2024 9:30 EDT Ancillary Procedure [facility] Cardiology - [place] [address] [address] [place], [place] [phone] 03/08/2024 10:15 EDT Ancillary Procedure [facility] Cardiology - [address] [place] [address] 04/05/2024 10:00 EDT Ancillary Procedure [facility] Cardiology Clinic [address] [place] [phone] 04/05/2024 10:00 EDT Office Visit [facility] Cardiology Clinic [address] [place] [address] Carlos Ha NP [address] [facility] [address]OB[address] [place] [address] documented as of this encounter Visit Diagnoses Not on filedocumented in this encounter Care Teams Student Assistant Relationship Specialty Start Date End Date Bryant Crain MD [address] [place], [place] [phone] PCP - General 05/04/15 05/17/23 Carlos Ha NP [address] [place] [phone] Consulting Clinician Cardiovascular Disease 09/14/21 documented as of this encounter
--- OUTSIDE RECORDS SUMMARY | 2024-01-14 11:08 | XMS_ITS | Encounter Summary ---
Author Organization [facility] Address [address] [place] [address] Care Team Providers Care Pullboat Engineer Name Role Phone Bryant Crain MD Primary Care Provider [phone] Carlos Ha BONE CHAR KILN TENDER Unavailable [phone] Reason for Visit * Reason Onset Date Comments Prior Auth, Other (i.e. radiology, etc.) 023 Encounter Details Date Type Department Care Team (Late st Contact Info) Description 03/03/2023 Telephone [facility] Cardiology [place] [address] Lefty Moss MD [address] [facility] 1 [place] [address] Prior Auth, Other (i.e. radiology, [...] - 03/03/2023 1046 EDT FYI: Trista, with [facility] Appeals Dept, is providing information for JALEN Pearson, that thethere has been a prior auth approval issued for a cardiac implant device, approval # [id number]. Per caller, the approval is valid from today, 03/03/23 too 04/17/23. Per caller, she will send a fax with the approval information to the attention of RN. documented in this encounter Plan of Treatment Upcoming Encounters Date Type Department Care Team (Late st Contact Info) Description 03/08/2024 9:30 EDT Ancillary Procedure [facility] Cardiology [place] [address] 03/08/2024 10:15 EDT Ancillary Procedure [facility] Cardiology [place] [address] 04/05/2024 10:00 EDT Ancillary Procedure [facility] Cardiology Clinic [address] [place] [phone] 04/05/2024 10:00 EDT Office Visit [facility] Cardiology Clinic [address] [place] [address] Carlos Ha NP [address] [place] [phone] documented as of this encounter Visit Diagnoses Not on filedocumented in this encounter Care Teams Pullboat Engineer Relationship Specialty Start Date End Date Bryant Crain MD [address] [place], [place] [phone] PCP - General 05/04/15 05/17/23 Carlos Ha NP [address] [place] [phone] Consulting Clinician Cardiovascular Disease 09/14/21 documented as of this encounter
--- OUTSIDE RECORDS SUMMARY | 2024-01-14 11:08 | XMS_ITS | Encounter Summary ---
Author Organization [facility] Address [address] [place] [address] Care Team Providers Care Architectural Engineer Name Role Phone Bryant Crain MD Primary Care Provider [phone] Carlos Ha TRANSITIONAL STUDIES INSTRUCTOR Unavailable [phone] Reason for Visit * Reason Onset Date Comments Hospital Discharge Follow Up 12/11/2022 Encounter Details Date Type Department Care Team (Late st Contact Info) Description 12/11/2022 Telephone [facility] Inpatient Pharmacy - [facility] [address] [place] [address] Roger Vizcarra [facility] Hospital Discharge Follow Up Social History [...] Notes * Telephone Encounter - Zackery Roger, [facility] - 12/11/2022 1401 EDT Images from the original note were [...] daily. Quantity: 30 Tablet FreeStyle Lo 2 Dexter misc Refills: 0 Generic drug: flash glucose [...] 1/4 needle Refills: 0 Generic drug: Insulin [place] (Disposable) * This list has 2 medication(s) [...] Office Visit Medium with Carlos Ha NP [facility] Card[facility] (--) [address] [facility] [address] Patient has understanding of their appointments. 10) [...] EDT Ancillary Procedure [facility] Cardiology [address] [place], [place] [phone] 03/08/2024 10:15 EDT Ancillary Procedure [facility] Cardiology [address] [place], [place] [id number] 04/05/2024 10:00 EDT Ancillary Procedure [facility] [address] [place] [phone] 04/05/2024 10:00 EDT Office Visit [facility] [address] [place] [address] [phone] Carlos Ha NP [address] [phone] documented as of this encounter Visit Diagnoses Not on filedocumented in this encounter Care Teams Architectural Engineer Relationship Specialty Start Date End Date Bryant Crain MD [address] [place], [place] [phone] PCP - General 05/04/15 05/17/23 Carlos Ha NP [address] [place] [address] [address] Consulting Clinician Cardiovascular Disease 09/14/21 documented as of this encounter
--- OUTSIDE RECORDS SUMMARY | 2024-01-14 11:08 | XMS_ITS | Encounter Summary ---
Author Organization [facility] Address [address] [place] [address] Care Team Providers Care Cosmetic Maker Name Role Phone Bryant Crain MD Primary Care Provider [phone] Carlos Ha SPRING INTERN Unavailable [phone] Reason for Visit * Reason Comments Follow-up Encounter Details Date Type Department Care Team (Latest Contact Info) Description 01/27/2023 16:00 EDT Office Visit [facility] [address] [place] [address] Carlos Ha, SPRING INTERN 130 [facility] [address] [place] [address] Chronic heart failure with preserved [...] this encounter Progress Notes * Carlos Ha, SPRING INTERN - 01/27/2023 1600 EDT Images from the [...] but was cancelled as she presented to [facility] ED on the day it was scheduled. She presented to [facility] on with complaints of fatigue, chest tightness, [...] in for NSTEMI. She was transferred to [facility] for LHC 12/08/2022 with severe [...] she has noticed improvement in hersymptoms since [facility] with PCI. I feel the same. Still weak and fatigued with most activities. [facility] Cryptogenic stroke (left MCA) 2017 with Medtr[employer] loop 2016. ASA recently started during admission at [facility] 08/2022 Paroxysmal atrial fibrillation (2 hr episode noted on monitor 2018.Started on Eliquis. No further episodes noted) NSVT (1 episode August 2019 with negative MPI) AVB type I and II - noted on professor of marketing during recent admission Hypertension, Hyperlipidemia (LDL 65 in 2021: She has been intolerant to multiple statins now on REPATHA) DM2 (A1C 7.1) CKD III Kidney stone 11/02 passed Duodenal ulcer and esophagitis with acute GIB admit to [facility] 11/11-11/14. D/C on Protonix. ?Parkinson's Disease SH Lives in [place] with spouse Has three grown children She [...] 1/4 needle ??? blood glucose meter by [facility] (non-drug; combo route) route daily. [...] glucose scanning reader (FREESTYLE VICKY 2 READER) [facility] 1 Device by [facility] (non-drug; comboroute) route daily. Dispense [...] ??? Propoxyphene N-Acetaminophen Other reaction(s): Hallucinations ??? Gjunbib-Lcp-Vrh Reductase Inhibitors ??? Trulicity [Dulaglutide] Gi Side [...] dilation (TID) with a value of 1.4 [facility] 12/08/2022 CORONARY ARTERIES: The coronary circulation is [...] from base to apex. The distal apex ([id number]) is concentrically involved by delayed enhancement. Left [...] 90% stenosis of RCA found on angiography. [facility] completed 12/08/22 with successful RCA stenting. -Tolerating Plavix. ASA discontinued while on Eliquis (hx of GIB due to esophagitis requiring transfusion) -Continue BB and Repatha -Hold Cardiac Rehab until she is symptomatically doing better 2. HCM severe asymmetric hypertrophy of LV with septal thickness 1.9 cm. Work up includes MCOT which she will start today. Awaiting MRI at [facility] 12/31. Spoke with Dr. Sebastian at [facility] who saw her in consultation. Referral sent to have him follow up with her as outpatient. Awaiting appointment. Low dose Metoprolol started while at [facility] -Consultation with Dr. Sebastian today. -No [...] Ancillary Procedure [facility] [place] [place] [address] 03/08/2024 10:15 EDT Ancillary Procedure [facility] Cardiology - [address] [place], [place] [phone] 04/05/2024 10:00 EDT Ancillary Procedure [facility] [address] [place] [phone] 04/05/2024 10:00 EDT Office Visit [facility] [address] [place] [address] Carlos Ha NP [address] [place] [phone] documented as of this encounter Visit Diagnoses Diagnosis Chronic heart failure with preserved ejection fraction (HCC-CMS)- Primary Hypertrophic cardiomyopathy (HCC-CMS) Other hypertrophic cardiomyopathy Ventricular tachycardia (HCC-CMS) Paroxysmal ventricular tachycardia Paroxysmal atrial fibrillation (HCC-CMS) Atrial fibrillation Essential hypertension Unspecified essential hypertension Mixed hyperlipidemia documented in this encounter Care Teams Cosmetic Maker Relationship Specialty Start Date End Date Bryant Crain MD [address] [place] [address] PCP - General 05/04/15 05/17/23 Carlos Ha NP [address] [place] [address] [address] Consulting Clinician Cardiovascular Disease 09/14/21 documented as of this encounter
--- OUTSIDE RECORDS SUMMARY | 2024-01-14 11:08 | XMS_ITS | Encounter Summary ---
Author Organization [facility] Address [address] [place] [address] Care Team Providers Care Risk Specialist Name Role Phone Bryant Crain MD Primary Care Provider [phone] Carlos Ha SEISMOLOGY TECHNICAL OFFICER Unavailable [phone] Reason for Visit * Reason Comments Heart Problem * Consult (Routine/Next Available) - Authorization Not Required Specialty Diagnoses / Procedures [facility] Referred To Contact Cardiology Diagnoses Hypertrophic cardiomyopathy (HCC-CMS) Randy Sebastian MD [address] [place] [address] [facility] [address] [place] [address] Referral ID Status Reason Start Date Expiration Date Visits Requested Visits Authorized [id number] Authorization Not Required Specialty Services Required 01/27/2023 1 1 Encounter Details Date Type Department Care Team (Late st Contact Info) Description 02/16/2023 10:20 EDT Office Visit [facility] Cardiology - [place] [address] [place] [address] Lefty Moss MD 111 [facility] 1 [place] [address] Hypertrophic cardiomyopathy (HCC-CMS) (Primary Dx); [...] orders for this visit: Hypertrophic cardiomyopathy (HCC-CMS) ([facility]) - CASE REQUEST EP LAB - CASE REQUEST EP LAB PAF (paroxysmal atrial fibrillation) (HCC-CMS) ([facility]) - CASE REQUEST EP LAB - [...] stenosis 06/01/2019 ??? Paroxysmal atrial fibrillation (HCC-CMS) ([facility]) 06/01/2019 No past surgical history on [...] ??? Propoxyphene N-Acetaminophen Other reaction(s): Hallucinations ??? Otmarhh-Yeh-Hcc Reductase Inhibitors ??? Trulicity [Dulaglutide] Gi Side [...] [facility] [place] [address] [place] [address] 03/08/2024 10:15 EDT Ancillary Procedure [facility] Cardiology - [facility] [address] [place], [place] [id number] 04/05/2024 10:00 EDT Ancillary Procedure [facility] [address] [place] [id number] 04/05/2024 10:00 EDT Office Visit [facility] Clinic [address] [place] [address] Carlos Ha NP [address] [place] [phone] documented as of this encounter Visit Diagnoses Diagnosis Hypertrophic cardiomyopathy (HCC-CMS)- Primary Other hypertrophic cardiomyopathy PAF (paroxysmal atrial fibrillation) (HCC-CMS) Atrial fibrillation documented in this encounter Orders Case Request Count Last Ordered Date First Orde red Date CASE REQUEST EP LAB 1 02/16/2023 documented in this encounter Care Teams Risk Specialist Relationship Specialty Start Date End Date Bryant Crain MD [address] [place], [place] [phone] PCP - General 05/04/15 05/17/23 Carlos Ha NP [address] [place] [address] [phone] Consulting Clinician Cardiovascular Disease 09/14/21 documented as of this encounter
--- OUTSIDE RECORDS SUMMARY | 2024-01-14 11:08 | XMS_ITS | Encounter Summary ---
Author Organization [facility] Address [address] [place] [address] Care Team Providers Care Pipe Wrapping Machine Operator Name Role Phone Bryant Crain MD Primary Care Provider [phone] Carlos Ha PLASTER FORM MAKER Unavailable [phone] Reason for Referral * Radiology Services (Routine/Next Available) - Specialty Report Received Specialty Diagnoses / Procedures Referred By [facility] Referred To Contact Diagnoses Chronic heart failure with preserved ejection fraction (HCC-CMS) Procedures XR CHEST 2 VIEWS Carlos Ha NP [address] [facility] [address] [address] Referral ID Status Reason Start Date Expiration Date V isits Requested Visits Authorized [id number] Specialty Report Received 03/02/2023 1 1 Reason for Visit * Reason Comments Cardiomyopathy Encounter Details Date Type Department Care Team (Late st Contact Info) Description 03/02/2023 16:15 EDT Office Visit [facility] [address] [place] [address] Carlos Ha NP 130 [facility] [address] [address] Chronic heart failure with preserved [...] this encounter Progress Notes * Carlos Ha, PLASTER FORM MAKER - 03/02/2023 1615 EDT Images from the [...] but was cancelled as she presented to [facility] ED on the day it was scheduled. She presented to [facility] on with complaints of fatigue, chest [...] in for NSTEMI. She was transferred to [facility] for [facility] 12/08/2022 with severe single vessel coronary artery [...] PMH Cryptogenic stroke (left MCA) 2017 with [employer]av[employer] loop 2016. ASA recently started during admission at [facility] 08/2022 Paroxysmal atrial fibrillation (2 hr episode noted on monitor 2018.Started on Eliquis. No further episodes noted) NSVT (1 episode August 2019 with negative MPI) AVB type I and II - noted on hide trimmer during recent admission Hypertension, Hyperlipidemia (LDL 65 in 2021: She has been intolerant to multiple statins now on REPATHA) DM2 (A1C 7.1) CKD III Kidney stone 11/02 passed Duodenal ulcer and esophagitis with acute GIB admit to [facility] 11/11-11/14. D/C on Protonix. ?Parkinson's Disease HCM -septal thickness 17 mm with very high burden LGE on MRI, epsides of NSVT. SH Lives in [place] with spouse Has three grown children She [...] 1/4 needle ??? blood glucose meter by [facility] [...] glucose scanning reader (FREESTYLE VICKY 2 READER) [facility] Device by [facility] (non-drug; comboroute) route daily. Dispense one reader [...] glucose strips (ONE TOUCH COMBO [facility]) -to test blood sugar - [...] ??? Propoxyphene N-Acetaminophen Other reaction(s): Hallucinations ??? Szquzxx-Nhv-Vlg Reductase Inhibitors ??? Trulicity [Dulaglutide] Gi Side [...] dilation (TID) with a value of 1.4 [facility] 12/08/2022 CORONARY ARTERIES: The coronary [...] from base to apex. The distal apex ([id number]) is concentrically involved by delayed enhancement. Left [...] 90% stenosis of RCA found on angiography. [facility] completed 12/08/22 with successful RCA [...] NSVT. -Dual chamber pacer/icd implant scheduled at [facility] 03/15/2023 4. PAF. -Eliquis resumed -No episodes [...] eliquis but she has been on [facility] jail 13. SOB -labs and cxr I spent [...] [facility] Card[facility] - [facility] [address] [place], [place] [phone] 03/08/2024 10:15 EDT Ancillary Procedure [facility] Cardiology - [facility] [address] [place], [place] [phone] 04/05/2024 10:[address] [facility] Clinic [address] [facility] [place] [address] 04/05/2024 10:[address] [facility] [address] [place] [address] Carlos Ha NP 130 [facility] [address] [place] [address] Scheduled Orders Name Type Priority Associated Diagnoses Orde r Schedule XR CHEST 2 VIEWS Imaging Routine Chronic heart failure with preserved ejection fraction (HCC-CMS) Expected: 03/02/2023 (Approximate), Expires: 03/02/2024 documented as of this encounter Results * (ABNORMAL) COMPREHENSIVE METABOLIC PANEL (CMP) (06/03/2023 12:20 EST) Sodium 138 136 - 145 mmol/L 06/03/2023 13:01 [facility] Potassium 4.8 3.5 - 5.0 mmol/L 06/03/2023 13:01 [facility] Chloride 104 96 - 110 mmol/L 06/03/2023 13:01 [facility] CO2 Total 26 22 - 32 mmol/L 06/03/2023 13:01 [facility] Glucose 314(H) 70 - 99 mg/dl 06/03/2023 13:01 [facility] BUN 18 10 - 26 mg/dL 06/03/2023 13:01 [facility] Creatinine 0.86 0.52 - 1.04 mg/dL 06/03/2023 13:01 [facility] eGFR 72 >60 mL/min/1.7 3m2 06/03/2023 13:01 [facility] Total Protein 6.7 6.3 - 8.2 g/dL 06/03/2023 13:01 [facility] Albumin 3.9 3.4 - 4.9 g/dL 06/03/2023 13:01 [facility] Alkaline Phosphatase 67 38 - 126 U/L 06/03/2023 13:01 [facility] AST 24 15 - 46 U/L 06/03/2023 13:01 [facility] ALT 17 <35 U/L 06/03/2023 13:01 [facility] Bilirubin, Total 0.7 <1.4 mg/dL 06/03/20 13:01 [facility] Calcium 10.6(H) 8.5 - 10.5 mg/dL 06/03/2023 13:01 [facility] Albumin/Globulin Ratio 1.4 1.0 - 2.5 g/dL 06/03/2023 13:01 [facility] Anion Gap 8 5 - 14 mmol/L 06/03/2023 13:01 [facility] Blood VENOUS BLOOD / Unknown Venipuncture / Unknown 06/03/2023 12:20 EST 06/03/2023 12:36 EST Carlos Ha NP CHEMISTRY & BLOOD GA S ORDERABLES Performing Organization Address City/State/[facility] Co de Phone Number [facility] [address] [place] [address] * (ABNORMAL) NT PRO BNP (06/03/2023 12:20 EST) NT-pro BNP 1,740(H) <221 pg/mL 06/03/2023 13:11 [facility] Comment: In the acute setting NT-proBNP values <300 pg/mL have a 98% NPV for excluding acute heart failure. In outpatient populations, NT-proBNP values <125 have a 99% NPV for excluding heart failure. Blood VENOUS BLOOD / Unknown Venipuncture / Unknown 06/03/2023 12:20 EST 06/03/2023 12:36 EST Carlos Ha NP CHEMISTRY & BLOOD GA S ORDERABLES [facility] [address] [place] [address] documented in this encounter Visit Diagnoses Diagnosis Chronic heart failure with preserved ejection fraction (HCC-CMS)- Primary documented in this encounter Care Teams Pipe Wrapping Machine Operator Relationship Specialty Start Date End Date Bryant Crain MD [address] [place], [place] [phone] PCP - General 05/04/15 05/17/23 Carlos Ha NP 130 [facility] [address] [place] [phone] Consulting Clinician Cardiovascular Disease 09/14/21 documented as of this encounter
--- OUTSIDE RECORDS SUMMARY | 2024-01-14 11:08 | XMS_ITS | Encounter Summary ---
Author Organization [facility] Address [address] [place] [address] Care Team Providers Care Manager Planning Name Role Phone Bryant Crain MD Primary Care Provider [phone] Carlos Ha OVEN PRESS TENDER Unavailable [phone] Elba Jett MD Primary Care Provider [phone] Reason for Visit * Reason Onset Date Comments Appointment Related 02/09/2023 Encounter Details Date Type Department Care Team (Late st Contact Info) Description 02/09/[address] [facility] Cardiology - [address] [place] [address] Randy Sebastian MD [address] [place] [phone] Appointment Related Social History Tobacco Use [...] Description 03/08/2024 9:[address] [facility] Cardiology - [facility] [address] [place], [place] [phone] 03/08/2024 10:[address] [facility] Cardiology - [facility] [place] [place] [address] 04/05/2024 10:00 EDT Ancillary Procedure [facility] Clinic [address] [place] [address] 04/05/2024 10:00 EDT Office Visit [facility] Clinic [address] [place] [address] Carlos Ha NP [address] [place] [address]-[address] [place] [address] documented as of this encounter Visit Diagnoses Not on filedocumented in this encounter Care Teams Manager Planning Relationship Specialty Start Date End Date Bryant Crain MD [address] [place], [place] [phone] PCP - General 05/04/15 05/17/23 Elba Jett MD [facility] [phone] PCP - General Family Medicine - Primary Care 05/18/23 Carlos Ha NP [address] [place] [phone] Consulting Clinician Cardiovascular Disease 09/14/21 documented as of this encounter
--- OUTSIDE RECORDS SUMMARY | 2024-01-14 11:08 | XMS_ITS | Encounter Summary ---
Author Organization [facility] Address [address] [place] [address] Care Team Providers Care Specialty Trimmer Name Role Phone Bryant Crain MD Primary Care Provider [phone] Carlos Ha EDGER MACHINE OPERATOR Unavailable [phone] Reason for Referral * Consult (Routine/Next Available) - Authorization Not Required Specialty Diagnoses / Procedures Referred By Charo t Referred To Contact Cardiology Diagnoses Hypertrophic cardiomyopathy ([facility]) Randy Sebastian MD [address] [place] [phone] [facility] Cardiology [address] [place] [address] [place] [address] Referral ID Status Reason Start Date Expiration Date Visits Requested Visits Authorized [id number] Authorization Not Required Specialty Services Required 01/27/2023 1 1 Question Answer Reason for Request: ICD implant consideration in the setting of hypertrophic cardiomyopathy * Cardiology (Routine/Next Available) - New Request Specialty Diagnoses / Procedures Referred By Contac t Referred To Contact Diagnoses Hypertrophic cardiomyopathy (HCC-CMS) Procedures EKG 12-LEAD Randy Sebastian MD [address] [place] [phone] Referral ID Status Reason Start Date Expiration Date V isits Requested Visits Authorized [id number] New Request 01/27/2023 1 1 Reason for [...] hypertension Mixed hyperlipidemia Carlos Ha, RAHEEM [address] [facility] [address] [place] [address] Randy Sebastian MD [address] [place] [address] Referral ID Status Reason Start Date Expiration Date Visits Requested Visits Authorized [id number] Specialty Report Received Specialty Services Required 01/05/2023 1 1 Encounter Details Date Type Department Care Team (Latest Contact Info) Description 01/27/2023 9:30 EDT [facility] - Ulises Ulises Jimenez [place], [place] [phone] Randy Sebastian MD [address] [place] [phone] (HFpEF) heart failure with preserved ejection [...] Randy Sebastian MD - 01/27/2023 0930 EDT [facility] Division of Cardiology- Advanced Heart Failure and Transplant Cardiology Dear Bryant Crain We had the pleasure of seeing Joanna Hart at the [facility] Advanced Heart Failure Office [...] offsprings and siblings. Will Send for the [place] Genetic test and discussed based on results. Will discussed increasing metoprolol to tartrate to 25 twice daily but unfortunately her heart rateon EKG today with severe bradycardia, ventricular rate is 42. Will hold off until post device implant. Severe iron deficiency anemia Since she completed the 3 planned transfusions. Repeat iron studies as well as CBC today. Randy eSbastian MD Advanced HF and Transplant Holistic Health Practitioner [facility] 01/27/2023 9:51 Medications Prior to Today's Visit Medication Sig ??? acetaminophen (TYLENOL) 650 mg CR tablet 2 tab(s) orally twice a day, only as needed ??? apixaban (ELIQUIS) 5 mg tablet Take 1 Tablet by mouth 2 times daily. ??? BD ULTRA-FINE MICRO PEN NEEDLE 32 gauge x 1/4 needle ??? blood glucose meter by [facility] (non-drug; combo route) route daily. One touch [...] mouth daily. ??? flash glucose scanning reader (Insurance NoodleSTYLE VICKY 2 READER) [facility] 1 Device by [facility] (non-drug; comboroute) route daily. Dispense one reader [...] ??? lancets/blood glucose strips (ONE TOUCH COMBO [facility]) -to test blood sugar [...] from base to apex. The distal apex ([id number]) is concentrically involved by delayed enhancement. Left [...] Info) Description 03/08/2024 9:30 EDT Ancillary Procedure [facility] [place] [place] [address] 03/08/2024 10:15 EDT Ancillary Procedure [facility] [place] [address] 04/05/2024 10:00 EDT Ancillary Procedure [facility] [address] [place] [address] 04/05/2024 10:00 EDT Office Visit [facility] [address] [place] [phone] Carlos Ha, EDGER MACHINE OPERATOR [address] [facility] [address] [place] [address] Scheduled Referrals Name Type Priority [...] EDT) 02/02/2023 16:5 8 EDT Scan 2 Tool Maker Apprentice PROCEDURE/MINOR CROW GICAL ORDERABLES * (ABNORMAL) COMPLETE BLOOD COUNT (01/27/2023 16:59 EDT) WBC 7.97 4.00 - 12.40 K/cmm 01/27/2023 17:09 [facility] RBC 4.49 3.86 - 5.04 M/cmm 01/27/2023 17:09 [facility] Hemoglobin 10.5(L) 11.6 - 15.2 g/dL 01/27/2023 17:09 [facility] HCT 36.1 34.9 - 44.4 % 01/27/2023 17:09 [facility] MCV 80(L) 81 - 98 fL 01/27/2023 17:09 [facility] MCH 23.4(L) 26.7 - 33.3 pg 01/27/2023 17:09 [facility] Hypochromia 1+ 01/27/2023 17:09 [facility] MCHC 29.1(L) 32.1 - 35.9 g/dL 01/27/2023 17:09 [facility] RDW-CV 23.9(H) <14.7 % 01/27/2023 17:09 [facility] RDW-SD 68.2(H) <50.4 fl 01/27/2023 17:09 [facility] Anisocytosis 2+ 01/27/2023 17:09 [facility] PLT 419(H) 141 - 377 K/cmm 01/27/2023 17:09 [facility] MPV 10.3 9.5 - 12.7 fL 01/27/2023 17:09 [facility] Blood VENOUS BLOOD / Unknown Venipuncture / Unknown 01/27/2023 16:59 EDT 01/27/2023 17:05 EDT Randy Sebastian MD HEMATOLOGY & PF4 ORD ERABLES [facility] [address] [place] [address] * (ABNORMAL) BASIC METABOLIC PANEL (BMP) (01/27/2023 16:59 EDT) Sodium 138 136 - 145 mmol/L 01/27/2023 17:39 [facility] Potassium 4.6 3.5 - 5.0 mmol/L 01/27/2023 17:39 [facility] Chloride 106 96 - 110 mmol/L 01/27/2023 17:39 [facility] CO2 Total 22 22 - 32 mmol/L 01/27/2023 17:39 [facility] Anion Gap 10 5 - 14 mmol/L 01/27/2023 17:39 [facility] Glucose 222(H) 70 - 99 mg/dl 01/27/2023 17:39 [facility] Calcium 10.8(H) 8.5 - 10.5 mg/dL 01/27/2023 17:39 [facility] BUN 22 10 - 26 mg/dL 01/27/2023 17:39 EDT [facility] Creatinine 1.11(H) 0.52 - 1.04 mg/dL 01/27/2023 17:39 EDT [facility] eGFR 53(L) >60 mL/min/1.73 m2 01/27/2023 17:39 EDT [facility] Blood VENOUS BLOOD / Unknown Venipuncture / Unknown 01/27/2023 16:59 EDT 01/27/2023 17:09 EDT Randy Sebastian MD CHEMISTRY & BLOOD GA S ORDERABLES Performing Organization Address [facility] de Phone Number [facility] [address] [place] [address] * (ABNORMAL) NT PRO BNP (01/27/2023 16:59 EDT) NT-pro BNP 1,360(H) <221 pg/mL 01/27/2023 17:53 EDT [facility] Comment: In the acute setting NT-proBNP values <300 pg/mL have a 98% NPV for excluding acute heart failure. In outpatient populations, NT-proBNP values <125 have a 99% NPV for excluding heart failure. Blood VENOUS BLOOD / Unknown Venipuncture / Unknown 01/27/2023 16:59 EDT 01/27/2023 17:09 EDT Randy Sebastian MD CHEMISTRY & BLOOD GA S ORDERABLES Performing Organization Address [facility] Co de Phone Number [facility] [address] [place] [address] * EKG 12-LEAD (01/27/2023 10:07 EDT) 01/27/2023 10:0 7 EDT Narrative [facility] EKG - 02/02/2023 16:51 EDT ? [facility] ? Test Date: ?2023-01-27 Pat Name: ? JOANNA GAUTAM ?Department: ?? [facility] ? Room: ? Gender: ? Female ? Obstetrics Teacher: ?? [id number] : ?1950 ? Requested By: ASIA WALTON A Order Number: [id number] ? Reading MD: ?? YASH CHAVEZ MD ? Measurements Intervals ?[place] ? Rate: ? 42 ? P: ?-59 [place]: ? 280 ?QRS: ?-29 QRSD: ? 118 [...] Note Yash Chavez MD - 02/02/2023 [facility] Test Date: 2023-01-27 Pat Name: JOANNA HART Department: [facility] Room: Gender: Female Obstetrics Teacher: [id number] : 1950 Requested By: ASIA Ovalles Order Number: [id number] Reading MD: YASH CHAVEZ MD Measurements Intervals [place] Rate: 42 P: -59 [place]: 280 QRS: -29 QRSD: 118 T: 156 [...] Randy Sebastian MD CARDIAC ECG ORDERABL ES [facility] EKG documented in this encounter Visit Diagnoses Diagnosis (HFpEF) heart failure with preserved ejection fraction (HCC-CMS)- Primary Heart failure, unspecified Hypertrophic cardiomyopathy (HCC-CMS) Other hypertrophic cardiomyopathy Iron deficiency anemia Iron deficiency anemia, unspecified documented in this encounter Care Teams Specialty Trimmer Relationship Specialty Start Date End Date Bryant Crain MD [address] [place], [place] [phone] PCP - General 05/04/15 05/17/23 Carlos Ha NP [address] [place] [address] [address] [place] [address] Consulting Clinician Cardiovascular Disease 09/14/21 documented as of this encounter
--- OUTSIDE RECORDS SUMMARY | 2024-01-14 11:08 | XMS_ITS | Encounter Summary ---
Author Organization [facility] Address [address] [place] [address] Care Team Providers Care Irrigation Flume Layer Name Role Phone Bryant Crain MD Primary Care Provider [phone] Carlos Ha CENTRAL STORES ATTENDANT Unavailable [phone] Reason for Visit * Auth/Cert (Routine) Specialty Diagnoses / Procedures [facility] Referred To Contact Diagnoses Hypertrophic cardiomyopathy (HCC-CMS) PAF (paroxysmal atrial fibrillation) (HCC-CMS) Hypertrophic cardiomyopathy (HCC-CMS) (HCC) [I42.2] PAF (paroxysmal atrial fibrillation) (HCC-CMS) (HCC) [I48.0] Procedures MD INSJ/RPLCMT PERM DFB W/TRNSVNS LDS 1/DUAL CHMBR ICD New System Dual Lefty Moss MD [address] [place] [phone] Referral ID Status Reason Start Date Expiration Date Visits Re quested Visits Authorized [id number] 02/16/2023 1 1 Encounter Details Date Type Department Care Team (Late st Contact Info) Description 03/15/2023 6:20 EDT - 03/16/2023 12:30 EDT Hospital Encounter [facility] Cardiac Unit [address] [place], [place] [address] Lefty Moss MD [address] [place] [address], [place] [address] Hudson Smith MD [address] [address] Miriam Capps MD [address] [address] Hypertrophic cardiomyopathy (HCC-CMS); PAF (paroxysmal atrial fibrillation) ([facility]-CMS) Discharge Disposition: Home or Self [...] Noted ??? *PAF (paroxysmal atrial fibrillation) (HCC-CMS) ([facility]) 02/16/2023 ??? Hypertrophic cardiomyopathy (HCC-CMS) ([facility]) Resolved Hospital Problems No resolved problems to display. Principal Procedure: Implantable Cardioverter Defibrillator (ICD) Date: 03/15/2023 Procedure:??Biventricular ICD implant Indication:??heart block, ventricular tachycardia, cardiomyopathy and high risk of sudden cardiac finish saw operator:??Lefty Moss MD Fellow: No Fellow ?? Brief narrative: RA to RAA RV to bundle of his RV to RV apical septum Device mode: DDD Lower rate: 60 Generator Manufactor: [employer] Contrast:?? 0 cc No immediate complication noted [...] Pacemaker device interrogation in 3 months at [facility] cardiology on 06/18/23 Allergies and Immunizations [...] ??? Propoxyphene N-Acetaminophen Other reaction(s): Hallucinations ??? Yajtkcq-Rvs-Ltb Reductase Inhibitors ??? Trulicity [Dulaglutide] Gi Side [...] 03/16/2023 10:30 AM ?? Clinical History/comments: s/p depot agent-d, heart block, cardiomyopathy; ?? Comparison: 1 day prior. ?? Technique: Frontal and lateral views of the chest. ?? Findings: ?? Lungs: Normal. Pleura/diaphragms: Normal.XR CHEST 2 VIEWS 03/16/2023 10:30 AM ?? Clinical History/comments: s/p depot agent-d, heart block, cardiomyopathy; ?? Comparison: 1 day [...] 11/11/2022 Discharge Follow Up Appointments Scheduled with [facility] Upcoming Appointments Mar 31, 2023 14:30 PPM/ICD Device Check - In Clinic with [facility] CARDIAC DEVICE 1 [facility] (--) [address] [facility] [place] [address] Please bring any insurance information and a copayment if required by your insurance company. Mar 31, 2023 14:30 Office Visit Medium with Carlos Ha NP [facility] (--) [address] [facility] [place] [address] May 18, 2023 14:00 Office Visit with Randy Sebastian MD [facility] Cardiology - [facility] (--) [address] [facility] [place] [address] Kerline Ann PA-C 03/16/2023 12:03 The patient [...] check: March 25 at 11:00am Dr. Crain [phone] Device check: June 18 at 1:00pm Device Clinic [facility] Cardiology [phone] Should the above appointment(s) not work, please call the number listed to reschedule a time that works for you. We are here to help, so should you need assistance prior to your procedure, please feel free to call anyone listed below with questions. EP Hog Driver - [phone]-if you need to reschedule your procedure [facility] Device Clinic nurse - [phone]~ Zakia Please let me know you have [...] of breath, palpitations or chest pain contact 091immediately. If 2 or more successive shocks occur, call your physician or nurse as soon as [place] [phone]. Do not hesitate to call emergency personnel [...] you travel by air please inform the hotel front desk agent & airport security of your device (ICD). You must be hand searched verses magnetic field. Know your medicines, keep a list with you and take them as prescribed. Family members should learn CPR and are encouraged to become certified if they are capable of doingso. Contact the [employer] for more details. Please tell [...] 4 times /year. Our Outpatient Cardiology Clinic/ [facility] is located at [address] [place] [address] in [place]. These appointments will take approximately 20 minutes and you will be reminded of this date by mail. Clinics are also held in [facility], [facility], [facility]/[place], [facility], [facility]/[place],[facility]/ [place] and [facility]/[place]. We will make arrangements for your follow [...] hesitate to call the cardiac arrhythmia service [phone] or [phone] or1 extension [phone]. For scheduling of appointments and related questions, please call [phone] or extension [phone]. documented in this encounter Medications at Time [...] with long-term current use of insulin ([facility]) by [facility] (non-drug; combo route) route [...] glucose scanning reader (FREESTYLE LO 2 READER) [facility] 1 Device by [facility] (non-drug; combo route) route [...] lancets/blood glucose strips (ONE TOUCH COMBO [facility]) -to test blood sugar - twice daily [...] -Continue current management -Post procedure x-ray -Hold POLICY LOAN CALCULATOR eliquis 48 hours post procedure Kerline Ann PA-C 03/15/2023 11:50 * Zakia Dixon RN - 03/08/2023 1003 EDT Images from the original note were not included. [address] [place] [address] 03/08-I spoke with pt and her regarding [...] you go home, you will need a miniature train driver. 14. The pre-registration department may call [...] or you may prefer to have your miniature train driver drop you off at the front entrance. 1. The registration staff will direct you to the surgical waiting room. Please check in with the radiology receptionist and they will notify pre op [...] check: March 25 at 11:00am Dr. Crain [phone] Device check: June 18 at 1:00pm Device Clinic [facility] Cardiology [phone] Should the above appointment(s) not work, please call the number listed to reschedule a time that works for you. We are here to help, so should you need assistance prior to your procedure, please feel free to call anyone listed below with questions. EP Hog Driver - [phone]-if you need to reschedule your procedure [facility] Device Clinic nurse - [phone]~ Zakia Please let me know you have [...] orders for this visit: Hypertrophic cardiomyopathy (HCC-CMS) ([facility]) - CASE REQUEST EP LAB - CASE REQUEST EP LAB PAF (paroxysmal atrial fibrillation) (HCC-CMS) ([facility]) - CASE REQUEST EP LAB [...] History: Diagnosis Date ??? Cerebrovascular accident (CVA) ([facility]) 06/01/2019 ??? Diabetes mellitus, type 2 ([facility]) 01/26/2011 On metformin On metformin ??? Essential hypertension 06/01/2019 ??? Mixed hyperlipidemia 06/05/2019 ??? Nonrheumatic aortic valve stenosis 06/01/2019 ??? Paroxysmal atrial fibrillation (HCC-CMS) ([facility]) 06/01/2019 No past surgical history [...] ??? Propoxyphene N-Acetaminophen Other reaction(s): Hallucinations ??? Rkjauhy-Lcg-Hfo Reductase Inhibitors ??? Trulicity [Dulaglutide] Gi Side [...] glucose scanning reader (FREESTYLE LO 2 READER) [facility], 1 Device by [facility] (non-drug; combo route) route [...] cardiomyopathy and high risk of sudden cardiac finish saw operator: Lefty Moss MD Fellow: No Fellow Brief narrative: RA to RAA RV to bundle of his RV to RV apical septum Device mode: DDD Lower rate: 60 Generator Manufactor: [employer] Contrast: 0 cc No immediate complication noted [...] The patient was considered stable to transfer global human resources director will give 1:1 verbal report Share: No [...] of this note (via Provider Access services) CENTRAL STORES ATTENDANT/PA on EP service (via Provider Access services) Attending on the EP service (via Provider Access services or PAGER #[phone]) After 16:00 aircraft riveter on EP service (via Provider Access services) Attending on the EP service (via Provider Access services or PAGER #[phone]) Other contact numbers: EP lab - [id number] - EP lab OR7 - [phone] EP (nurse of the day) NOD - [phone] or page [phone] factory laborer - [phone] Overhead Double page cardiology If the above calls have failed to generate satisfactory bedside assistance within 15 minutes, and the patient's condition has not yet stabilized, call the Rapid Response Team. documented in this encounter Miscellaneous Notes * Plan of Care - Ana Hicks RN - 03/16/2023 1230 EDT Problem: Daily Care Plan Goals Goal: Care Plan Documentation Outcome: Completed Flowsheets (Taken 03/16/2023 4497) Area of Focus: Discharge Plan Goal This [...] Care - Aneudy Cannon RN - 03/15/2023 6446 EDT Data: Joanna is admitted to from [...] Care - Lefty Moss MD - 03/15/2023 0804 EDT Addendum to h/P: Pt in pre-op today with AV lilly wenkebach, and 2:1 heart block Reports RODRIGUEZ, no syncope. She has HCM, will likely need more Avn blockade and Need ventricular pacing in the future Will plan for CDL BULK DRIVER-d conduction system pacing lead, plus ICD Indication [...] Info) Description 03/08/2024 9:30 EDT Ancillary Procedure [facility] - [place] [address] [place] [address] 03/08/2024 10:15 EDT Ancillary Procedure [facility] - [place] [address] [place] [address] 04/05/2024 10:00 EDT Ancillary Procedure [facility] [address] [place] [address] 04/05/2024 10:00 EDT Office Visit [facility] [address] [place] [address] Carlos Ha, RAHEEM [address] [place] [address] [place] [address] Pending Results Name Type Priority [...] EDT) 03/18/2023 11:3 2 EDT Scan 2 Source Inspector PROCEDURE/MINOR CROW GICAL ORDERABLES * ECG REPORT - SCANNED (03/18/2023 8:34 EDT) 03/18/2023 8:34 EDT Scan 2 Source Inspector PROCEDURE/MINOR CROW GICAL ORDERABLES * IMPLANT RECORD - SCANNED (03/17/2023 16:24 EDT) 03/17/2023 16:2 4 EDT Scan 2 Source Inspector PROCEDURE/MINOR CROW GICAL ORDERABLES * ECG REPORT - SCANNED (03/17/2023 16:24 EDT) 03/17/2023 16:2 4 EDT Scan 2 Source Inspector PROCEDURE/MINOR CROW GICAL ORDERABLES * (ABNORMAL) POCT GLUCOSE, INTERFACED (03/16/2023 11:36 EDT) Glucose, POC 212(H) 70 - 100 mg/dL 03/16/2023 11:44 EDT [facility] HN LAB POC COMMENT (GLUCOSE) Test Performed by Nursing Services 03/16/2023 11:44 EDT [facility] Blood CAPILLARY BLOOD / Unknown 03/16/2023 11:36 EDT 03/16/2023 11:44 EDT Kerline Ann PA-C POINT OF CARE TEST O RDERABLES [facility] [address] [place] [address] * XR CHEST 2 VIEWS (03/16/2023 10:27 EDT) Anatomical Region Laterality Modality Computed Radiogr aphy 03/16/2023 10:4 0 EDT Impressions 03/16/2023 10:40 EDT Satisfactory postprocedural chest radiograph. [id number] Narrative 03/16/2023 10:40 EDT XR CHEST 2 VIEWS ??03/16/2023 10:30 AM Clinical History/comments: s/p depot agent-d, heart block, cardiomyopathy; Comparison: 1 day prior. [...] VIEWS 03/16/2023 10:30 AM Clinical History/comments: s/p depot agent-d, heart block, cardiomyopathy; Comparison: 1 day prior. [...] Bones: Normal. IMPRESSION Satisfactory postprocedural chest radiograph. [id number] Lefty Moss MD IMG DIAGNOSTIC I MAGING [...] 70 - 100 mg/dL 03/16/2023 9:01 EDT [facility] HN LAB POC COMMENT (GLUCOSE) Test Performed by Nursing Services 03/16/2023 9:01 EDT [facility] Blood CAPILLARY BLOOD / Unknown 03/16/2023 8:59 EDT 03/16/2023 9:01 EDT Kerline DRAKE-C POINT OF CARE TEST O RDERABLES [facility] [address] [place] [address] * (ABNORMAL) POCT GLUCOSE, INTERFACED (03/15/2023 23:57 EDT) Glucose, POC 314(H) 70 - 100 mg/dL 03/15/2023 23:58 EDT [facility] HN LAB POC COMMENT (GLUCOSE) Test Performed by Nursing Services 03/15/2023 23:58 EDT [facility] Blood CAPILLARY BLOOD / Unknown 03/15/2023 23:57 EDT 03/15/2023 23:58 EDT Lefty Moss MD POINT OF CARE TE ST ORDERABLES Performing Organization Address City/[facility]/ZIP Co de Phone Number [facility] [address] [place] [address] * (ABNORMAL) POCT GLUCOSE, INTERFACED (03/15/2023 20:19 EDT) Glucose, POC 467(H) 70 - 100 mg/dL 03/15/2023 20:21 EDT [facility] HN LAB POC COMMENT (GLUCOSE) Test Performed by Nursing Services 03/15/2023 20:21 EDT [facility] Blood CAPILLARY BLOOD / Unknown 03/15/2023 20:19 EDT 03/15/2023 20:21 EDT Kerline DRAKE-C POINT OF CARE TEST O RDERABLES Performing Organization Address [facility] Co de Phone Number [facility] [address] [place] [address] * (ABNORMAL) POCT GLUCOSE, INTERFACED (03/15/2023 16:27 EDT) Glucose, POC 428(H) 70 - 100 mg/dL 03/15/2023 16:32 EDT [facility] HN LAB POC COMMENT (GLUCOSE) Test Performed by Nursing Services 03/15/2023 16:32 EDT [facility] Blood CAPILLARY BLOOD / Unknown 03/15/2023 16:27 EDT 03/15/2023 16:32 EDT Kerline DRAKE-C POINT OF CARE TEST O RDERABLES Performing Organization Address [facility] Co de Phone Number [facility] [address] [place] [address] * (ABNORMAL) POCT GLUCOSE, INTERFACED (03/15/2023 12:59 EDT) Glucose, POC 186(H) 70 - 100 mg/dL 03/15/2023 13:01 EDT [facility] HN LAB POC COMMENT (GLUCOSE) Test Performed by Nursing Services 03/15/2023 13:01 EDT [facility] Blood CAPILLARY BLOOD / Unknown 03/15/2023 12:59 EDT 03/15/2023 13:01 EDT Lefty Moss MD POINT OF CARE TE ST ORDERABLES Performing Organization Address City/[facility] Co de Phone Number [facility] [address] [place] [address] * EKG 12-LEAD (03/15/2023 12:28 EDT) 03/15/2023 12:2 8 EDT Narrative [facility] - 03/18/2023 8:23 EDT ? [facility] ? Test Date: ?2023-03-15 Pat Name: ? JOANNA GAUTAM ?Department: ?? [place] [address] ? Room: ? EP Gender: ? Female ? Risk Developer: ?? [id number] : ?1950 ? Requested By: CHARITY ROMO Order Number: [id number] ? Reading MD: ?? SNEHA LAWRENCE MD ? Measurements Intervals ?Gurley ? Rate: ? 64 ? P: ?198 MD: ? 125 ?QRS: ?28 QRSD: ? 149 [...] Note Sneha Lawrence MD - 03/18/2023 [facility] Test Date: 2023-03-15 Pat Name: JOANNA HART Department: [place] [address] Room: Gender: Female Risk Developer: [id number] : 1950 Requested By: CHARITY TORRES Order Number: [id number] Reading MD: SNEHA LAWRENCE MD Measurements Intervals [place]ley Rate: 64 P: 198 MD: 125 QRS: 28 QRSD: 149 T: 182 QT: 463 QTc: 480 Interpretive Statements ELECTRONIC ATRIAL PACEMAKER ELECTRONIC VENTRICULAR PACEMAKER Compared to ECG 01/27/2023 10:07:02 Pacing is now present I reviewed the tracing and have either agreed or edited the findings inthis report. Electronically Signed On 03-18-2023 08:23:06 EDT by KATHY HAY. Lefty Moss MD CARDIAC ECG SURENDRA IRAHETA [facility] EKG * XR CHEST PORTABLE 1 VIEW (03/15/2023 12:05 EDT) Anatomical Region Laterality Modality Computed Radiogr aphy 03/15/2023 12:1 4 EDT Impressions 03/15/2023 12:14 EDT Left transvenous implantable cardioverter defibrillator with its leads projecting over the right atrium and right ventricle in this single AP view. [id number] Narrative 03/15/2023 12:14 EDT XR CHEST PORTABLE 1 VIEW ??03/15/2023 11:40 AM Clinical History/comments: s/p depot agent-d heart block cardiomyopathy; Comparison: Chest radiograph March [...] VIEW 03/15/2023 11:40 AM Clinical History/comments: s/p depot agent-d heart block cardiomyopathy; Comparison: Chest radiograph March [...] and right ventricle in this single APview. [id number] Lefty Moss MD IMG DIAGNOSTIC I MAGING ORDERABLES * ICD BI-V NEW (03/15/2023 10:47 EDT) Anatomical Region Laterality Modality Cardiac Electrop hysiology Narrative 03/16/2023 11:17 EDT Choose correct report for procedure performed: Attending: Lefty Moss MD Fellow: No Fellow Cross Country/Track And Field Coach :Sabrina Bruno RN Attestation: Attending only- I,Lefty Moss MD, ??performed the entire procedure and was the initial and only author of the report. Procedure: ??CDL BULK DRIVER- D with conduction system pacing lead. Summary [...] with conduction system pacing lead lead via CDL BULK DRIVER-d device. On good med rx Indication History: Prior heart failure - yes NYHA class - II LVEF- Yes, 60% Date assessed : 10/2022 ? 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 NICM - yes GDMT max dose - Yes > 3 months Prior Cardiac arrest - no Prior [place] - yes- NSVT Prior NE - ??no Prior PCI - Yes Prior [...] 70 - 100 mg/dL 03/15/2023 8:09 EDT [facility] HN LAB POC COMMENT (GLUCOSE) Test Performed by Nursing Services 03/15/2023 8:09 EDT [facility] Blood CAPILLARY BLOOD / Unknown 03/15/2023 7:55 EDT 03/15/2023 8:09 EDT Lefty Moss MD POINT OF CARE TE ST ORDERABLES [facility] [address] [place] [address] documented in this encounter Visit Diagnoses Diagnosis [...] 03/16/2023 documented in this encounter Care Teams Irrigation Flume Layer Relationship Specialty Start Date End Date Bryant Crain MD [address] [place] [address] PCP - General 05/04/15 05/17/23 Carlos Ha NP [address] [place] [address] [place] [phone] Consulting Clinician Cardiovascular Disease 09/14/21 documented as of this encounter
--- OUTSIDE RECORDS SUMMARY | 2024-01-14 11:08 | XMS_ITS | Encounter Summary ---
Author Organization [facility] Address [address] [place] [address] Care Team Providers Care Strategic Client Executive Name Role Phone Bryant Crain MD Primary Care Provider [phone] Carlos Ha CARPENTER REFRIGERATOR Unavailable [phone] Reason for Visit * Reason Onset Date Comments Hospital Discharge Follow Up 12/24/2022 Encounter Details Date Type Department Care Team (Late st Contact Info) Description 12/24/2022 Telephone [facility] Cardiac Unit [address] [place] [address] Chandni Alcala, RN [address] [place] [address] Hospital Discharge Follow Up Social History Tobacco [...] daily. Quantity: 30 Tablet FreeStyle Lo 2 [place] misc Refills: 0 Generic drug: flash glucose [...] /4 needle Refills: 0 Generic drug: Insulin [place] (Disposable) * This list has 2 medication(s) [...] Office Visit Medium with Carlos Ha NP [facility] (--) [address] [facility] [address] Patient has understanding of their [...] Description 03/08/2024 9:30 EDT Ancillary Procedure [facility]iology - [facility] [address] [facility] [address] [place], [place] [id number] 03/08/2024 10:15 EDT Ancillary Procedure [facility] Cardiology - [facility] [address] [facility] [address] [place], [place] [id number] 04/05/2024 10:00 EDT Ancillary Procedure [facility] [address] [place] [id number] 04/05/2024 10:00 EDT Office Visit [facility] [address] [place] [phone] Carlos Ha NP [address] [place] [phone] documented as of this encounter Visit Diagnoses Not on filedocumented in this encounter Care Teams Strategic Client Executive Relationship Specialty Start Date End Date Bryant Crain MD [address] [place], [place] [phone] PCP - General 05/04/15 05/17/23 Carlos Ha NP [address] [place] [phone] Consulting Clinician Cardiovascular Disease 09/14/21 documented as of this encounter
--- OUTSIDE RECORDS SUMMARY | 2024-01-14 11:08 | XMS_ITS | Encounter Summary ---
Author Organization [facility] Address [address] [place] [address] Care Team Providers Care Supervisor Litharge Name Role Phone Bryant Crain MD Primary Care Provider [phone] Carlos Ha SKIN GRADER Unavailable [phone] Reason for Visit * Reason Onset Date Comments Appointment Related 01/26/2023 Encounter Details Date Type Department Care Team (Late st Contact Info) Description 01/26/2023 Telephone [facility] - [address] [place] [address] Randy Sebastian MD [address] [place] [phone] Appointment Related Social History Tobacco Use [...] EDT Ancillary Procedure [facility] - [facility] [place] [address] 03/08/2024 10:15 EDT Ancillary Procedure [facility] [place] [address] 04/05/2024 10:00 EDT Ancillary Procedure [facility] [address] [place] [phone] 04/05/2024 10:00 EDT Office Visit [facility] [address] [place] [phone] Carlos Ha, RAHEEM [address] [place] [address] [place] [place] [phone] documented as of this encounter Visit Diagnoses Not on filedocumented in this encounter Care Teams Supervisor Litharge Relationship Specialty Start Date End Date Bryant Crain MD [address] [place] [address] PCP - General 05/04/15 05/17/23 Carlos Ha NP [address] [place] [address] [address] [place] [address] Consulting Clinician Cardiovascular Disease 09/14/21 documented as of this encounter
--- OUTSIDE RECORDS SUMMARY | 2024-01-14 11:08 | XMS_ITS | Encounter Summary ---
Author Organization [facility] Address [address] [place] [address] Care Team Providers Care Ceo Name Role Phone Bryant Crain MD Primary Care Provider [phone] Carlos Ha PETROLEUM INSPECTOR Unavailable [phone] Encounter Details Date Type Department Care Team (Late st Contact Info) Description 01/27/2023 16:50 EDT Phlebotomy Only [facility] - Outpatient Phlebotomy Drawing [address] [place] [address] Lab, [facility] Op Phlebotomy (HFpEF) heart failure with preserved [...] [facility] Cardiology - [address] [address] [address] [place], [place] [id number] 03/08/2024 10:15 EDT Ancillary Procedure [facility] Cardiology [address] [place] [address] [place] [address] 04/05/2024 10:00 EDT Ancillary Procedure [facility] Clinic [address] [place] [id number] 04/05/2024 10:00 EDT Office Visit [facility] Clinic [address] [place] [phone] Carlos Ha, RAEHEM [address] [place] [address]-[address] [place] [address] documented as of this encounter [...] 11 - 264 ng/mL 01/27/2023 18:19 EDT [facility] Blood VENOUS BLOOD / Unknown Venipuncture / Unknown 01/27/2023 16:59 EDT 01/27/2023 17:09 EDT Narrative [facility] - 01/27/2023 18:19 EDT The results of this assay can be falsely lowered due to the consumption of Biotin. Randy Sebastian MD CHEMISTRY & BLOOD GA S ORDERABLES Performing Organization Address City/[facility]/ZIP Co de Phone Number [facility] [address] [place] [address] * (ABNORMAL) TRANSFERRIN SATURATION (01/27/2023 16:59 EDT) Iron 52 37 - 170 ??g/dL 01/27/2023 17:48 EDT [facility] Iron Binding Capacity 365 240 - 450 ??g/dL 01/27/2023 17:48 EDT [facility] Transferrin Saturation 14(L) 15 - 45 % 01/27/2023 17:48 EDT [facility] Blood VENOUS BLOOD / Unknown Venipuncture / Unknown 01/27/2023 16:59 EDT 01/27/2023 17:09 EDT Randy Sebastian MD CHEMISTRY & BLOOD GA S ORDERABLES Performing Organization Address City/[facility]/ZIP Co de Phone Number [facility] [address] [phone] * (ABNORMAL) COMPLETE BLOOD COUNT (01/27/2023 16:59 EDT) WBC 7.97 4.00 - 12.40 K/cmm 01/27/2023 17:09 [facility] RBC 4.49 3.86 - 5.04 M/cmm 01/27/2023 17:09 [facility] Hemoglobin 10.5(L) 11.6 - 15.2 g/dL 01/27/2023 17:09 [facility] HCT 36.1 34.9 - 44.4 % 01/27/2023 17:09 [facility] MCV 80(L) 81 - 98 fL 01/27/2023 17:09 [facility] MCH 23.4(L) 26.7 - 33.3 pg 01/27/2023 17:09 [facility] Hypochromia 1+ 01/27/2023 17:09 [facility] MCHC 29.1(L) 32.1 - 35.9 g/dL 01/27/2023 17:09 [facility] RDW-CV 23.9(H) <14.7 % 01/27/2023 17:09 [facility] RDW-SD 68.2(H) <50.4 fl 01/27/2023 17:09 [facility] Anisocytosis 2+ 01/27/2023 17:09 [facility] PLT 419(H) 141 - 377 K/cmm 01/27/2023 17:09 [facility] MPV 10.3 9.5 - 12.7 fL 01/27/2023 17:09 [facility] Blood VENOUS BLOOD / Unknown Venipuncture / Unknown 01/27/2023 16:59 EDT 01/27/2023 17:05 EDT Randy Sebastian MD HEMATOLOGY & PF4 ORD ERABLES [facility] [address] [place] [address] * (ABNORMAL) BASIC METABOLIC PANEL (BMP) (01/27/2023 16:59 EDT) [facility] Sodium 138 136 - 145 mmol/L 01/27/2023 17:39 [facility] Potassium 4.6 3.5 - 5.0 mmol/L 01/27/2023 17:39 [facility] Chloride 106 96 - 110 mmol/L 01/27/2023 17:39 [facility] CO2 Total 22 22 - 32 mmol/L 01/27/2023 17:39 [facility] Anion Gap 10 5 - 14 mmol/L 01/27/2023 17:39 [facility] Glucose 222(H) 70 - 99 mg/dl 01/27/2023 17:39 [facility] Calcium 10.8(H) 8.5 - 10.5 mg/dL 01/27/2023 17:39 [facility] BUN 22 10 - 26 mg/dL 01/27/2023 17:39 [facility] Creatinine 1.11(H) 0.52 - 1.04 mg/dL 01/27/2023 17:39 [facility] eGFR 53(L) >60 mL/min/1.73 m2 01/27/2023 17:39 [facility] Blood VENOUS BLOOD / Unknown Venipuncture / Unknown 01/27/2023 16:59 EDT 01/27/2023 17:09 EDT Randy Sebastian MD CHEMISTRY & BLOOD GA S ORDERABLES Performing Organization Address City/[facility]/ZIP Co de Phone Number [facility] [address] [place] [address] * (ABNORMAL) NT PRO BNP (01/27/2023 16:59 EDT) Pathologist [facility] NT-pro BNP 1,360(H) <221 pg/mL 01/27/2023 17:53 [facility] Comment: In the acute setting NT-proBNP values <300 pg/mL have a 98% NPV for excluding acute heart failure. In outpatient populations, NT-proBNP values <125 have a 99% NPV for excluding heart failure. Blood VENOUS BLOOD / Unknown Venipuncture / Unknown 01/27/2023 16:59 EDT 01/27/2023 17:09 EDT Randy Sebastian MD CHEMISTRY & BLOOD GA S ORDERABLES [facility] [address] [place] [address] documented in this encounter Visit Diagnoses Diagnosis (HFpEF) heart failure with preserved ejection fraction (HCC-CMS) Heart failure, unspecified Hypertrophic cardiomyopathy (HCC-CMS) Other hypertrophic cardiomyopathy Iron deficiency anemia Iron deficiency anemia, unspecified documented in this encounter Care Teams Ceo Relationship Specialty Start Date End Date Bryant Crain MD [address] [place], [place] [phone] PCP - General 05/04/15 05/17/23 Carlos Ha NP [address] [facility] [place] [phone] Consulting Clinician Cardiovascular Disease 09/14/21 documented as of this encounter
--- OUTSIDE RECORDS SUMMARY | 2024-01-14 11:08 | XMS_ITS | Encounter Summary ---
Author Organization [facility] Address [address] [place] [address] Care Team Providers Care Ux Design Manager Name Role Phone Bryant Crain MD Primary Care Provider [phone] Carlos Ha HOUSE MANAGER Unavailable [phone] Reason for Visit * Reason Onset Date Comments Appointment Related 03/17/2023 Encounter Details Date Type Department Care Team (Late st Contact Info) Description 03/17/2023 Telephone [facility] Cardiology Clinic [address] [place] [address] Carlos Ha, HOUSE MANAGER [address] [facility] [address] [place] [address] Appointment Related Social History Tobacco [...] had an ICD placed on 03/15 at [facility], she needs to be scheduled for [...] [facility] [place] [address] 03/08/2024 10:15 EDT Ancillary Procedure [facility] [place] [address] 04/05/2024 10:00 EDT Ancillary Procedure [facility] Cardiology Clinic [address] [place] [address] 04/05/2024 10:00 EDT Office Visit [facility]iology Clinic [address] [place] [address] Carlos Ha NP [address] [phone] documented as of this encounter Visit Diagnoses Not on filedocumented in this encounter Care Teams Ux Design Manager Relationship Specialty Start Date End Date Bryant Crain MD [address] [place], [place] [phone] PCP - General 05/04/15 05/17/23 Carlos Ha NP [address] [phone] Consulting Clinician Cardiovascular Disease 09/14/21 documented as of this encounter
--- OUTSIDE RECORDS SUMMARY | 2024-01-14 11:08 | XMS_ITS | Encounter Summary ---
Author Organization [facility] Address [address] [place] [address] Care Team Providers Care Supervisor Dials Name Role Phone Bryant Crain MD Primary Care Provider [phone] Carlos Ha PILOT PLANT SUPERVISOR Unavailable [phone] Reason for Visit * Reason Onset Date Comments Pharmacy 01/06/2023 Iron Infusion at [facility] Encounter Details Date Type Department Care Team (Late st Contact Info) Description 01/06/2023 Orders Only [facility] Cardiology Clinic [address] [place] [address] Suleman Ovalles, JALEN Social History Tobacco [...] will be done in outpatient clinic at [facility] 100 mL 01/06/2023 01/21/2023 documented in this encounter Progress Notes * Suleman Ovalles RN - 01/06/202323 EDT Carlos Ha, PILOT PLANT SUPERVISOR sent to Suleman Ovalles RN I want to order Venofer 200 mg IV weekly for three weeks (3 infusions total) to be done at [facility]. Thanks, Carlos Spoke with Petra at [facility] Infusion clinic. Orders sent for Venofer 200mg IV weekly x 3 via fax [phone] documented in this encounter Miscellaneous Notes * Addendum Note - Suleman Ovalles RN - 01/06/2023 0823 EDTAddended by: SULEMAN OVALLES on: 01/06/2023 08:58 Modules accepted: Orders documented in this encounter Plan of Treatment Upcoming Encounters Date Type Department Care Team (Late st Contact Info) Description 03/08/2024 9:30 EDT Ancillary Procedure [facility] Cardiology [place] [address] 03/08/2024 10:15 EDT Ancillary Procedure [facility] Cardiology - [address] [place] [address] 04/05/2024 10:00 EDT Ancillary Procedure [facility] Cardiology Clinic [address] [place] [address] 04/05/2024 10:00 EDT Office Visit [facility] Cardiology Clinic [address] [place] [address] Carlos Ha NP [address] [place] [phone] documented as of this encounter Visit Diagnoses Not on filedocumented in this encounter Care Teams Supervisor Dials Relationship Specialty Start Date End Date Bryant Crain MD [address] [place], [place] [phone] PCP - General 05/04/15 05/17/23 Carlos Ha NP [address] [place] [phone] Consulting Clinician Cardiovascular Disease 09/14/21 documented as of this encounter
--- OUTSIDE RECORDS SUMMARY | 2024-01-14 11:09 | XMS_ITS | Encounter Summary ---
Author Organization [facility] Address [address] [place] [address] Care Team Providers [employer] Driver Name Role Phone Bryant Crain MD Primary Care Provider [phone] Carlos Ha WELFARE ANALYST Unavailable [phone] Reason for Visit * Auth/Cert (Routine) Specialty Diagnoses / Procedures Referred By [facility] Referred To Contact Diagnoses NSTEMI (non-ST elevated myocardial infarction) (FORMERLY [facility]) NSTEMI, rising troponin Referral ID Status Reason Start Date Expiration Date Visits Re quested Visits Authorized [id number] 1 1 Encounter Details Date Type Department Care Team (Late st Contact Info) Description 12/08/2022 14:40 EDT - 12/08/2022 15:40 EDT Surgery [facility] Invasive Cardiology Unit [address] [place] [address] Edgardo Ha MD [address] [place] [address] [place] [id number] Left Heart Cath Surgery Details Date/Time Status Location OR Service Patient Class Case Class Case Type Trauma Case? 12/08/22 1440 Posted [facility] Engineer Specialist Engineer Specialist 3 Interventional Cardiology Inpatient Panel 1 Procedure [...] ??? NSTEMI (non-ST elevated myocardial infarction) ([facility]LY [facility]) ([facility]) 12/07/2022 Principal Procedure: Heart cath and Percutaneous coronary intervention Date: 12/08/2022 Access: Right radial artery ?? Procedure: She was brought to [facility] for the procedure: [...] from base to apex. The distal apex ([id number]) is concentrically involved by delayed enhancement. Left [...] Disease presenting as a direct transfer from [facility] where she presented on 12/01 due to shortness of breath, and chest tightness that woke her up from her sleep 3- 4 days prior. At [facility] she was diuresed with IV lasix BID, however trop was still dynamic, requiring a transfer for an ischemic evaluation. At [facility] she underwent a NM PET scan [...] chronic for her. Patient was restarted on AUTOMOBILE SERVICE STATION ATTENDANT GDMT as well as new to her jardiance, losartan and spironolactone, tolerating well. Advise following up with OP provider to titrate GDMT as clinically indicated. Of note, patient had a few episodes of asymptomatic AV lilly dysfunction, EP consulted and after reviewing her ECGs and tele, recommend safe discharge on AUTOMOBILE SERVICE STATION ATTENDANT metop 12.5mg daily, restarted during this admission [...] was requested with PCP and Carlos Ha WELFARE ANALYST. Pt was also referred for cardiac rehab evaluation at [facility]. Of note, PLT noted [...] ??? Propoxyphene N-Acetaminophen Other reaction(s): Hallucinations ??? Goyhzod-Hxe-Rdu Reductase Inhibitors ??? Trulicity [Dulaglutide] Gi Side [...] 11/11/2022 Discharge Follow Up Appointments Scheduled with [facility] Appointments Outside of [facility] We Will Schedule Follow-up appointments and procedures [facility] Cardiac Rehabilitation Referral Your local cardiac rehab program will contact you and/or your reading instructor to discuss. Authorizing Provider: Collette Coker NP [...] known as: VITAMIN B-12 FreeStyle Vicky 2 [facility] [place] Generic [...] by mouth daily. ONE TOUCH COMBO [facility] OneTouch Ultra Blue Test Strip test strips [...] gauge x 1/4 needle Generic drug: Insulin [place] (Disposable) * This list has 2 medication(s) that are the same as other medications prescribed for you. Read thedirections carefully, and ask your doctor or other care provider to review them with you. Where to Get Your Medications These medications were sent to [facility] ([facility] - [address] [address] ?? aspirin 81 mg EC tablet ?? [...] up with your primary care provider or reading instructor. * Discharge Instr - DME* Zandra Monge [...] hyperglycemia, with long-term current use of insulin ([facility]) by misc (non-drug; combo route) route [...] [facility] [place] 1 Device by mis (non-drug; combo route) [...] 1 Tablet by mouth 2 times daily. GlaukosTOUCH ULTRA BLUE TEST STRIP test strips TEST [...] Means Destination Comment s Home or Self Detention documented in this encounter Progress Notes * Ramona Ingram - 12/08/2022 1442 EDT Spiritual Care Department Repair Mechanic Note Re: Fortunato Hart : 1950 Room: /[facility] Service: Cardiology Judaism: Jain Fortunato has received a visit from the Spiritual Care Department on 12/08/2022. Assessment/Comments: I responded to Fortunato's request for the Sacrament before her procedure. Met with her and her spouse, Kenneth at bedside. They were both receptive and engaged this Repair Mechanic. I explored with Fortunato, her hospitalization, treatment [...] Care Welcomed End of Life Patient Is Mormonism Importance Moderately Important Current Support System Spouse/Significant Other, Family/Friends Level of Support Strong Support ENCOUNTER DATA Date of Encounter 12/08/22 Time of Encounter 1145 Reason for Encounter Referral Referred by Repair Mechanic Care Level 4 - Significant Patient Concerns Reason not visited ENCOUNTER Needs Addressed Repair Mechanic Support, Fear/Anxiety, Sacraments Interventions Assessed and Affirmed Strengths, Build Relationship, Prayer, Sacraments Sacraments Provided Anointed Date of Anointing 12/08/22 Communion Date of Communion Date of Yarsani OUTCOME Outcome Stress Level Reduced Stress Outcome of Encounter Patient Satisfied, Needs Met CARE PLAN Plan Patient/Family will Call if Needed Consult With Additional Support Was Clergy Needed? Yes, provided, Single Ending Machine Operator TIME STAMP: Total time spent 20 minutes in direct floor time; >50% of time was spent in spiritual care. RAMONA INGRAM 12/08/2022 14:42 * Kaila Dotson - 12/08/2022 0931 EDT Spiritual Care Department Repair Mechanic Note Re: Fortunato Hart : 1950 Room: [place] [address] Service: Cardiology Judaism: Jain Fortunato has received a visit from the Spiritual Care Department on 12/08/2022. Assessment/Comments: Fortunato and Kenneth (of forty-five years!) welcome drafter chief design internet marketing assistant. Both appear to be coping well with humor, family texting, and going through word puzzles together, though Fortunato shares that 'I'm a little anxious' about the waiting - 'I'd just like to get the heck on out of here.' Repair Mechanic internet marketing assistant affirms the understandable anxiety and frustration of uncertainty. Per Fortunato, her Jain charly provides further meaning. She would like sacramental support from a Jain drafter chief design when possible. Repair Mechanic internet marketing assistant will reach out to Father Ramona, unit staff drafter chief design. DEM[employer]GRAPH[employer] Spiritual Care Welcomed Patient Is Mormonism Importance Moderately Important Current Support System Spouse/Significant Other, Family/Friends Level of Support Strong Support ENCOUNTER DATA Date of Encounter 12/08/22 Time of Encounter 0910 Reason for Encounter Initial Visit Care Level 3 - Some Matter of Substance ENCOUNTER Needs Addressed Repair Mechanic Support, Family Support, Fear/Anxiety, Frustration, Gratitude, Prayer Support Interventions Assessed and Affirmed Strengths, Assessed Spiritual/Mormonism Needs, Build Relationship, Explored Spiritual/Relgious/Social Supports, Family Support, Prayer OUTCOME Outcome Stress Level Reduced Stress Outcome of Encounter Continues to Process Issue, Family Supported CARE PLAN Plan Continued Repair Mechanic Support Was Clergy Needed? Yes, unavailable, Single Ending Machine Operator TIME STAMP: Total time spent 10 [...] present. Medications Reviewed: Changes notable for holding AUTOMOBILE SERVICE STATION ATTENDANT metoprolol due to long QTc Labs Reviewed: [...] of diffuse obstructive coronary disease, plan for [facility]. N-STEMI: HLD HTN Symptomatic, troponin peaked at [...] - Hx of statin intolerance, on Repatha AUTOMOBILE SERVICE STATION ATTENDANT - [facility] today - cont losartan 25 mg ?? Hypertrophic Cardiomyopathy -Cardiac MRI w/ velocity map: severe concentric hypertrophy with EF 60%, distal portion of LV completely obliterates in systole, no abnormal mitral valve motion or LVOT obstruction, aortic stenosis - Daily Mg - cont AUTOMOBILE SERVICE STATION ATTENDANT Metoprolol tartrate 12.5 mg BID ?? Acute on chronic HFpEF Exacerbation: P/w e/o mild fluid overload consistent with HF exacerbation. Last TTE with EF 60-65% with findings consistent with diastolic dysfunction. BNP in ED at [facility] 3200. Has been euvolemic [...] - SSI - Lantus 20 U daily (AUTOMOBILE SERVICE STATION ATTENDANT dose is 31) - Aspart 7 U TID ACHS - Hold AUTOMOBILE SERVICE STATION ATTENDANT Metformin - losartan 25 mg as above 1st deg AV delay VTE Prophylaxis Pharmacologic Prophylaxis: Heparin gtt Discharge Plan Home or self care Greer Hooks MD PGY-3 #[id number] 12/08/22 7:22 Associated attestation - Von Walters MD - 12/08/2022 1504 EDT Attending Attestation: I have personally seen and examined Fortunato Hart , discussed the patient's management with the team, and agree with the findings and plan as outlined by Dr. Hooks. In addition, [facility] today revealed RCA stenosis concordant with the perfusion abnormality seen on PET, now s/pPCI. Von Walters MD * Greer Hooks MD - 12/07/2022 6392 EDT Cardiology Progress note Service Date: 12/07/2022 [...] present. Medications Reviewed: Changes notable for holding AUTOMOBILE SERVICE STATION ATTENDANT metoprolol due to long QTc Labs Reviewed: [...] Possible troponin leak 2/2 true type 1 KS vs HCM. -Eliquis taken earlier (12/03) - Telemetry class I - aspirin 81mg daily - Heparin gtt - Nitro 0.4mg SL q5min prn - Hx of statin intolerance, on Repatha AUTOMOBILE SERVICE STATION ATTENDANT - supplemental O2 if needed - NM-PET [...] with EF 60-65%. BNP in ED at [facility] 3200 - AUTOMOBILE SERVICE STATION ATTENDANT GDMT ??? Metoprolol tartrate 12.5 mg BID [...] - SSI - Lantus 20 U daily (AUTOMOBILE SERVICE STATION ATTENDANT dose is 31) - Aspart 7 U TID ACHS - Hold AUTOMOBILE SERVICE STATION ATTENDANT Metformin 1st deg AV delay VTE Prophylaxis [...] coronary disease. Thus we will proceed with [facility]. Von Walters MD * Elsie Otoole - 12/06/2022 8517 EDT Cardiology Progress note Service Date: 12/06/2022 [...] present. Medications Reviewed: Changes notable for holding AUTOMOBILE SERVICE STATION ATTENDANT metoprolol due to long QTc Labs Reviewed: [...] - Hx of statin intolerance, on Repatha AUTOMOBILE SERVICE STATION ATTENDANT - supplemental O2 if needed - potential [facility] Wednesday - NPO at midnight for potential [...] with EF 60-65%. BNP in ED at [facility] 3200 - AUTOMOBILE SERVICE STATION ATTENDANT GDMT ??? Metoprolol tartrate 12.5 mg BID [...] diet - SSI - Lantus 20 U daily(AUTOMOBILE SERVICE STATION ATTENDANT dose is 31) - Aspart 7 U TID ACHS - Hold AUTOMOBILE SERVICE STATION ATTENDANT Metformin 1st deg AV delay VTE Prophylaxis Pharmacologic Prophylaxis: Heparin gtt Discharge Plan Home or self care Elsie Otoole MD Internal Medicine PGY-1 Pager #[phone] ELSIE OTOOLE 12/06/2022 14:47 Associated attestation - [...] present. Medications Reviewed: Changes notable for holding AUTOMOBILE SERVICE STATION ATTENDANT metoprolol due to long QTc Labs Reviewed: [...] - Hx of statin intolerance, on Repatha AUTOMOBILE SERVICE STATION ATTENDANT - supplemental O2 if needed - potential [...] with EF 60-65%. BNP in ED at [facility] 3200 - AUTOMOBILE SERVICE STATION ATTENDANT GDMT ??? Metoprolol tartrate 12.5 mg BID [...] diet - SSI - Lantus 20 U daily(AUTOMOBILE SERVICE STATION ATTENDANT dose is 31) - Aspart 7 U TID ACHS - Hold AUTOMOBILE SERVICE STATION ATTENDANT Metformin 1st deg AV delay VTE Prophylaxis Pharmacologic Prophylaxis: Heparin gtt Discharge Plan Home or self care VIKASH GUZMAN MD 12/05/2022 7:43 * Alysia Aguiar [facility] ED - 12/04/2022 1615 EDT Transitions of Care - Pharmacy Admission Medication Reconciliation Fortunato Hart is a 72 y.o. female admitted on 12/03/2022 for NSTEMI (non-ST elevated myocardial infarction) ([facility]) ([facility]) Pharmacist Interventions/Recommendations: 1. AUTOMOBILE SERVICE STATION ATTENDANT med list updated 2. Pharmacy to call [...] lancets/blood glucose strips ([facility]) -to test blood sugar - twice [...] 2 WEEKS ??? EBEN SCHWARTZ Preferred Pharmacy: [facility] - [address] ALYSIA AGUIAR RPH * Elsie Otoole [...] present. Medications Reviewed: Changes notable for holding AUTOMOBILE SERVICE STATION ATTENDANT metoprolol due to long QTc Labs Reviewed: [...] - Hx of statin intolerance, on Repatha AUTOMOBILE SERVICE STATION ATTENDANT - supplemental O2 if needed - potential [facility] Wednesday - NPO at midnight Wednesday - NPO now for potential stress test - Lipid profile: cholesterol 107, HDL 40, LDL 29 ?? HYpertrophic Cardiomyopathy -Cardiac MRI w/ velocity map ordered -Daily Mg ?? Acute on chronic HFpEF Exacerbation: P/w e/o mild fluid overload consistent with HF exacerbation. Last TTE with EF 60-65%. BNP in ED at [facility] 3200 - AUTOMOBILE SERVICE STATION ATTENDANT GDMT ??? Metoprolol tartrate 12.5 mg BID [...] diet - SSI - Lantus 20 U daily(AUTOMOBILE SERVICE STATION ATTENDANT dose is 31) - Aspart 7 U TID ACHS - Hold AUTOMOBILE SERVICE STATION ATTENDANT Metformin VTE Prophylaxis Pharmacologic Prophylaxis: Heparin gtt Discharge Plan Home or self care Elsie Otoole MD Internal Medicine PGY-1 Pager #[phone] ELSIE OTOOLE 12/04/2022 14:32 * Mary Falcon RN - 12/04/2022 1654 EDT 12/04:The following assessment was completed on 12/01 at the [facility]; CM will continue to follow Mary Falcon RN [facility] #[id number] Initial Case Management/Social Work Assessment and Discharge Plan/Readmission Risk Assessment ?? REASON FOR ADMISSION: Acute heart failure, unspecified heart failure type (HCC- CMS) (HCC) Patient understands reason for admission: Yes ?? PATIENT INFO VERIFIED: PCP Type of housing (single family, condo, apartment, usp, single room occupancy, [facility] funded hotel room, group retirement) - Home Who does the patient live with? Does the patient have access to their own bedroom/bathroom/kitchen - or is it shared with others? Yes Name of housing complex (ex [employer], [facility], etc)- n/a Housing Authority/Managing Organization - n/a Community Care Providers (case filler, [facility] nurse, etc) name and contact information- n/a [...] Type of Healthcare Directive: Durable power of attorney at law for health care, Health care treatment directive Copy in Chart: Yes, new copy in paper chart @ [facility] Information Provided on Healthcare Directives: No Information on Healthcare Directives Requested: No DIRECTIVES FOR FINANCES: Directive For Finances: No ?? TRANSPORTATION: Transportation: Family Transportation Additional Details: vs. ambulance to [facility] Final Discharge Destination: Home Patient expects to be discharged to: Home ?? CULTURAL, DENOMINATIONAL and/or LANGUAGE factors affecting health care/discharge planning: Spiritual/Cultural Requests: None ?? Insurance Information: Medical Insurance: Yes Type of insurance: Medicare ([employer]) Referred to patient financial services: No ?? [...] Home Health Services: None DME Provider: Pharmacy: [facility] - [address] [address] ?? [id number] - [address] [address] ?? Home Health: Other: ?? POST HOSPITAL TRANSITION PLAN: Patients PCP, pharmacy and demographics verified. Patient lives withher in a one story house with one step to enter. Patient has an advanced directive on file listing her as medical agent. Patient utilizes a walker and no other DME's. Patient is expected to transfer to [facility] today for a heart cath. CM to follow. ?? CHARITO MOCK 12/02/2022 9:57 documented in this encounter H&P Notes * Randy Sebastian MD - 12/03/2022 7057 EDT STAFF ATTESTATION: I, Randy Sebastian MD, [...] Disease presenting as a direct transfer from [facility] where she presented on 12/01 due to shortness of breath, and chest tightness that woke her up from her sleep 3- 4 days prior. Otherwise has been doing well, no recent GIB no melanotic stools since her discharge last month. Per [facility] note: She presented to [...] peaked at 0.11. Cardiology recommended transfer to [facility] for cardiac catheterization. She was not [...] noted in HPI. Prior Cardiac History: 11/20 [facility] cardiology clinic event monitor [...] lancets/blood glucose strips (ONE TOUCH COMBO [facility]) -to test blood sugar [...] ??? Propoxyphene N-Acetaminophen Other reaction(s): Hallucinations ??? Rpdiquu-Pnp-Ohb Reductase Inhibitors ??? Trulicity [Dulaglutide] Gi Side [...] Disease presenting as a direct transfer from [facility] fpr NSTEMI. Plan N-STEMI: HLD HTN symptomatic,troponin peaked at .130 on 12/01, initially down-trended than began to uptrend from .97 to peak of .112 on 12/02 -Eliquis taken earlier today (12/03) - Telemetry class I - repeat troponin - aspirin 81mg daily - Heparin gtt - Nitro 0.4mg SL q5min prn - Hx of statin intolerance - on Repatha AUTOMOBILE SERVICE STATION ATTENDANT - supplemental O2 if needed - potential [facility] Wednesday - NPO at midnight Wednesday - NPO now for potential stress test - ordered lipid profile HYpertrophic Cardiomyopathy -Cardiac MRI w/ velocity map ordered -Hold BB due to prolonged Qt -Daily Mg Acute on chronic HFpEF Exacerbation: P/w e/o mild fluid overload consistent with HF exacerbation. Last TTE with EF 60-65%. BNP in ED at [facility] 3200 - AUTOMOBILE SERVICE STATION ATTENDANT GDMT ??? Hold Metoprolol due to prolonged [...] diet - SSI - Lantus 20 U daily(AUTOMOBILE SERVICE STATION ATTENDANT dose is 31) - Aspart 7 U TID ACHS - Hold AUTOMOBILE SERVICE STATION ATTENDANT Metformin Code status: Full Code Diet: DIET HEART HEALTHY DIET NPO AFTER MIDNIGHT- Wednesday VTE Prophylaxis: Hep gtt, hold AUTOMOBILE SERVICE STATION ATTENDANT apixaban Consults: None Discharge: Unclear, pending resolution of above Darion Tinajero MD PGY-2 Internal Medicine Epic secure chat, #[phone] 12/03/22 22:46 documented in this encounter Procedure Notes * Edgardo Ha MD - 12/08/2022 1600 EDT Dear Bryant Crain Fortunato Hart underwent cardiac catheterization at [facility] on 12/08/2022. She had presented with [...] artery Procedure: She was brought to [facility] for the procedure: [...] well. Post Procedure Follow Up: John Ha WELFARE ANALYST at [facility] cards Post Interventional Conclusion/Physician [...] Care - Mary Falcon RN - 12/09/2022 0966 EDT 12/09/22926 Medicare IM Notice IM notice status Patient received notification verbally and in writing while in hospital. IM notice given at discharge? Yes * Plan of Care - Mikal Murphy RN - 12/08/2022 9068 EDT Data: Assumed care at 1900. Pt [...] during the night. Plan to D/C today. Mkial Murphy 12/09/22 Problem: Daily Care Plan Goals Goal: Care Plan Documentation Flowsheets (Taken 12/08/2022 2024) Area of Focus: Pain/ Comfort Goal This Shift: No pain at the incision site Problem: High Fall Risk: Goal: Patient will Remain Free of Falls due to Med. Side Effects Outcome: Ongoing * Plan of Care - Loren Maier RN - 12/08/2022 1825 EDT Data: Patient NPO for [facility] this morning. VS stable and patient denies [...] Lif[place]ak at ____. Response: Patient returned to [place] [address] at 1620 with 1 MADONNA to RCA. [...] rate. Call woods within reach. Plan for [facility] today. Mikal Murphy 6/20/23 Problem: Daily Care [...] around with as contact guard. Plan for [facility] tomorrow. NPO after MN Action: Assessments documented [...] Care Plan Documentation 12/07/2022 0507 by Mikal uMrphy RN Outcome: Ongoing Flowsheets (Taken 12/07/2022 0010) [...] Care - Gabriela Montesinos RN - 12/06/2022 0585 EDT Data: patient admitted 12/03 for cp. Patient diagnosed with nstemi. Patient npo for possible LHC or stress test. Cardiac MRI complete. Patient on 9 ml heparin drip doac. Patient first degree rythem. Patient POLICE RADIO DISPATCHER due to past CVA. Action: patient telemetry [...] with NSTEMI/CHF. Cardiac MRI performed today. Possible [facility] scheduled for December 07 Action: patient medicated [...] heparin drip doac. Patient afib rythem. Patient POLICE RADIO DISPATCHER due to past CVA. Action: patient telemetry [...] Education - Chandni Alcala RN - 12/04/2022 7443 EDT Heart failure nurse clinician reviewed heart failure education with pt at the bedside this morning.Please see Education tab for education provided and pt's response. Chandni Alcala RN, CHFN Heart Failure Nurse Clinician Secure Chat or pager #[phone] * Plan of Care - Teresa Silverman RN - 12/04/2022 0144 EDT Problem: Daily Care Plan Goals Goal: Care Plan Documentation Outcome: Ongoing Data: Pt transferred from [facility] for continued cardiac investigation. Dx NSTEMI. A/Ox3. Ind in the room. VSS - BP elevated at times. Tele SR with 1st deg HB, BBB, and freq PVC's. Denies CP at this time. Action: Ctm tele, VS. Response: Pt resting at this time. Plan for cardiac MRI later today. Possible NM stress test. Tentative [facility] for Wednesday. TERESA SILVERMAN RN 12/04/2022 1:44 [...] of GIB with recent admission to the [facility] MICU in 11/10, CVA, 2DM, PD who presents asa transfer from [facility] with elevated troponin and [...] of breath. The patient had presented to [facility], there troponins were persistently positive and adynamic. BNP elevated to 3200. She received a single dose of IV Lasix. Patient was maintained on her home Eliquis and did not receive aspirin loading while at [facility]. Last dose 12/03 pm With regards to her recent history of GI bleed the patient had initially presented to [facility] with 1 week of melanotic stools and 2 syncopal episodes. She developed acute hematemesis while there requiring significant transfusion and FFP administration, she was then transferred to [facility] MICU. EGD performed showed duodenal erosion, scattered petechiae in the stomach and no active bleeding. She was maintained on bid PPI and did not have recurrent bleeding or instability. In this context the patient hada significantly elevated troponin to 34.7 peak which decreased to 32 on next check. She was subsequently restarted on eliquis on 11/23. Patient had stable Hgbs at [facility] and no evident bleeding. Per RAHEEM Ha's note on 11/20 [facility] cardiology clinic event monitor worn 10/13/2022-11/12/2022 which showed both AVB type I as well as periods of 2-1 blockwith HR 28-30 bpm, one pause lasting 3 seconds, AF burden <1%, and 5 nonsustained runs of ventricular tachycardia. EKG-sinus rhythm with normal axis, first-degree AV block, nonspecific intraventricular conduction delay delay, prolonged QT, LVH, PVCs Exam- Gjkqyqb-dugg-hftiaaquw, sitting up in bed, appears comfortable Neck-no [...] history of short runs of NSVT on fci rhythm monitoring as well as 2 documented [...] [facility] [place] [address] 03/08/2024 10:15 EDT Ancillary Procedure [facility] [place] [address] 04/05/2024 10:00 EDT Ancillary Procedure [facility] [address] [place] [address] [id number] 04/05/2024 10:00 EDT Office Visit [facility] [address] [place] [address] [id number] Carlos Ha NP [address] [facility] [address] [place] [id number] Scheduled Orders Name Type Priority Associated Diagnoses Orde r Schedule EKG 12-LEAD ECG STAT One Time for 1 Occurrences starting 12/08/2022 until 12/08/2022 Scheduled Referrals Name Type Priority Associated Diagnoses Order Schedule AMB CONS/FOLLOW UP CARDIOLOGY Outpatient Referral Routine/Next Available NSTEMI (non-ST elevated myocardial infarction) ([facility]) Expected: 12/22/2022 (Approximate), Expires: 12/09/2023 AMB CONS/FOLLOW UP PRIMARY CARE PHYSICIAN - EXTERNAL Outpatient Referral Routine/Next Available NSTEMI (non-ST elevated myocardial infarction) ([facility]) Expected: 12/15/2022 (Approximate), Expires: 12/09/2023 PROVIDER FOLLOW-UP INSTRUCTIONS Outpatient Referral Routine Ordered: 12/08/2022 AMB CONS/FOLLOW UP CARDIAC REHABILITATION Outpatient Referral Routine/Next Available NSTEMI (non-ST elevated myocardial infarction) ([facility]) Expected: 12/16/2022 (Approximate), Expires: 12/09/2023 documented [...] EDT) 12/26/2022 18:2 2 EDT Scan 2 Neck Band Operator PROCEDURE/MINOR CROW GICAL ORDERABLES * ECG REPORT - SCANNED (12/24/2022 9:21 EDT) 12/24/2022 9:21 EDT Scan 2 Neck Band Operator PROCEDURE/MINOR CROW GICAL ORDERABLES * ECG REPORT - SCANNED (12/11/2022 10:17 EDT) 12/11/2022 10:1 7 EDT Scan 2 Neck Band Operator PROCEDURE/MINOR CROW GICAL ORDERABLES * IMPLANT RECORD - SCANNED (12/11/2022 10:16 EDT) 12/11/2022 10:1 6 EDT Scan 2 Neck Band Operator PROCEDURE/MINOR CROW GICAL ORDERABLES * ECG REPORT - SCANNED (12/10/2022 19:54 EDT) 12/10/2022 19:5 4 EDT Scan 2 Neck Band Operator PROCEDURE/MINOR CROW GICAL ORDERABLES * (ABNORMAL) POCT GLUCOSE, INTERFACED (12/09/2022 12:07 EDT) Glucose, POC 204(H) 70 - 100 mg/dL 12/09/2022 12:08 EDT [facility] HN LAB POC COMMENT (GLUCOSE) Test Performed by Nursing Services 12/09/2022 12:08 EDT [facility] Blood CAPILLARY BLOOD / Unknown 12/09/2022 12:07 EDT 12/09/2022 12:08 EDT Darion Tinajero MD POINT OF CARE TEST O RDERABLES [facility] [address] [place] [address] * (ABNORMAL) POCT GLUCOSE, INTERFACED (12/09/2022 7:04 EDT) Glucose, POC 227(H) 70 - 100 mg/dL 12/09/2022 7:06 EDT [facility] HN LAB POC COMMENT (GLUCOSE) Test Performed by Nursing Services 12/09/2022 7:06 EDT [facility] Blood CAPILLARY BLOOD / Unknown 12/09/2022 7:04 EDT 12/09/2022 7:06 EDT Darion Tinajero MD POINT OF CARE TEST O RDERABLES Performing Organization Address City/[facility]/ZIP Co de Phone Number [facility] [address] [place] [address] * MAGNESIUM (12/09/2022 6:32 EDT) Magnesium 2.2 1.7 - 2.8 mg/dL 12/09/2022 7:30 EDT [facility] Blood VENOUS BLOOD / Unknown Venipuncture / Unknown 12/09/2022 6:32 EDT 12/09/2022 7:00 EDT Vikash Guzman MD CHEMISTRY & BLOOD GA S ORDERABLES Performing Organization Address [facility] Co de Phone Number [facility] [address] [place] [address] * (ABNORMAL) BASIC METABOLIC PANEL (BMP) (12/09/2022 6:32 EDT) Sodium 138 136 - 145 mmol/L 12/09/2022 7:30 EDT [facility] Potassium 4.3 3.5 - 5.0 mmol/L 12/09/2022 7:30 T [facility] Chloride 107 96 - 110 mmol/L 12/09/2022 7:30 T [facility] CO2 Total 19(L) 22 - 32 mmol/L 12/09/2022 7:30 T [facility] Anion Gap 12 5 - 14 mmol/L 12/09/2022 7:30 T [facility] Glucose 211(H) 70 - 100 mg/dl 12/09/2022 7:30 [facility] Calcium 10.5 8.5 - 10.5 mg/dL 12/09/2022 7:30 T [facility] BUN 15 10 - 26 mg/dL 12/09/2022 7:30 [facility] Creatinine 0.95 0.52 - 1.04 mg/dL 12/09/2022 7:30 T [facility] eGFR 64 >60 mL/min/1.73 m2 12/09/2022 7:30 T [facility] Blood VENOUS BLOOD / Unknown Venipuncture / Unknown 12/09/2022 6:32 EDT 12/09/2022 7:00 EDT Darion Tinajero MD CHEMISTRY & BLOOD GA S ORDERABLES [facility] [address] [place] [address] * (ABNORMAL) COMPLETE BLOOD COUNT (12/09/2022 6:31 EDT) WBC 7.64 4.00 - 12.40 K/cmm 12/09/2022 6:57 [facility] RBC 3.47(L) 3.86 - 5.04 M/cmm 12/09/2022 6:57 [facility] Hemoglobin 9.1(L) 11.6 - 15.2 g/dL 12/09/2022 6:57 [facility] HCT 28.1(L) 34.9 - 44.4 % 12/09/2022 6:57 [facility] MCV 81 81 - 98 fL 12/09/2022 6:57 [facility] MCH 26.2(L) 26.7 - 33.3 pg 12/09/2022 6:57 [facility] MCHC 32.4 32.1 - 35.9 g/dL 12/09/2022 6:57 [facility] RDW-CV 15.1(H) <14.7 % 12/09/2022 6:57 [facility] RDW-SD 44.0 <50.4 fl 12/09/2022 6:57 [facility] PLT 470(H) 141 - 377 K/cmm 12/09/2022 6:57 [facility] MPV 10.3 9.5 - 12.7 fL 12/09/2022 6:57 [facility] Blood VENOUS BLOOD / Unknown Venipuncture / Unknown 12/09/2022 6:31 EDT 12/09/2022 6:51 EDT Darion Tinajero MD HEMATOLOGY & PF4 ORD ERABLES Performing Organization Address City/[facility]/ZIP Co de Phone Number [facility] [address] [place] [address] * (ABNORMAL) POCT GLUCOSE, INTERFACED (12/09/2022 4:22 EDT) Glucose, POC 260(H) 70 - 100 mg/dL 12/09/2022 4:24 EDT [facility] HN LAB POC COMMENT (GLUCOSE) Test Performed by Nursing Services 12/09/2022 4:24 EDT [facility] Blood CAPILLARY BLOOD / Unknown 12/09/2022 4:22 EDT 12/09/2022 4:24 EDT Von Walters MD POINT OF CARE TEST ORDERABLES Performing Organization Address [facility]/ZIP Co de Phone Number [facility] [address] [place] [address] * (ABNORMAL) POCT GLUCOSE, INTERFACED (12/08/2022 23:55 EDT) Glucose, POC 375(H) 70 - 100 mg/dL 12/08/2022 23:56 EDT [facility] HN LAB POC COMMENT (GLUCOSE) Test Performed by Nursing Services 12/08/2022 23:56 EDT [facility] Blood CAPILLARY BLOOD / Unknown 12/08/2022 23:55 EDT 12/08/2022 23:56 EDT Von Walters MD POINT OF CARE TEST ORDERABLES Performing Organization Address City/[facility]/ZIP Co de Phone Number [facility] [address] [place] [address] * (ABNORMAL) POCT GLUCOSE, INTERFACED (12/08/2022 21:17 EDT) Glucose, POC 390(H) 70 - 100 mg/dL 12/08/2022 21:19 EDT [facility] HN LAB POC COMMENT (GLUCOSE) Test Performed by Nursing Services 12/08/2022 21:19 EDT [facility] Blood CAPILLARY BLOOD / Unknown 12/08/2022 21:17 EDT 12/08/2022 21:19 EDT Darion Tinajero MD POINT OF CARE TEST O RDERABLES [facility] [address] [place] [address] * EKG 12-LEAD (12/08/2022 18:48 EDT) 12/08/2022 18:4 8 EDT Narrative [facility] - 12/10/2022 13:41 EDT ? [facility] ? Test Date: ?2022-12-08 Pat Name: ? FORTUNATO TANNER ?Department: ?? [place] [address] ? Room: ? [id number] Gender: ? Female ? Ostomy Nurse: ?? [id number] : ?1950 ? Requested By: KRISTI RODRIGUEZ Order Number: [id number] ? Reading : ?? RANDY SEBASTIAN MD ? Measurements Intervals ?[place] ? Rate: ? 75 ? P: ? WI: ? 0 ?QRS: ?-21 QRSD: ? 121 [...] Note Randy Sebastian MD - 12/10/2022 [facility] Test Date: 2022-12-08 Pat Name: FORTUNATO MALIKRT Department: [place] [address] Room: [facility] Gender: Female Ostomy Nurse: [id number] : 1950 Requested By: KRISTI ADAN Order Number: [id number] Reading MD: RANDY SEBASTIAN MD Measurements Intervals [place] Rate: 75 P: WI: 0 QRS: -21 QRSD: 121 T: 138 QT: 429 QTc: 482 Interpretive Statements SINUS RHYTHM WITH FIRST DEGREE AVB LEFT VENTRICULAR HYPERTROPHY AND ST-T CHANGE POSSIBLE SEPTAL MYOCARDIAL INFARCTION , PROBABLY OLD I reviewed the tracing and have either agreed or edited the findings inthis report. Electronically Signed On 12-10-2022 13:41:55 EDT by RANDY FOSTER. Von Walters MD CARDIAC ECG O RDERABLES [facility] * (ABNORMAL) POCT GLUCOSE, INTERFACED (12/08/2022 16:44 EDT) Glucose, POC 139(H) 70 - 100 mg/dL 12/08/2022 16:46 EDT [facility] HN LAB POC COMMENT (GLUCOSE) Test Performed by Nursing Services 12/08/2022 16:46 EDT [facility] Blood CAPILLARY BLOOD / Unknown 12/08/2022 16:44 EDT 12/08/2022 16:46 EDT Darion Tinajero MD POINT OF CARE TEST O RDERABLES Performing Organization Address City/[facility]/ZIP Co de Phone Number [facility] [address] [place] [address] * OCT (12/08/2022 15:47 EDT) Anatomical Region Laterality Modality Engineer Specialist Narrative 12/08/2022 15:47 EDT Refer to the primary case's report for the procedure summary. Elsie Otoole CARDIAC CATH ORDERAB LES * LEFT HEART CATH, PERCUTANEOUS CORONARY INTERVENTION (12/08/2022 15:47 EDT) Anatomical Region Laterality Modality Engineer Specialist 12/08/2022 14:1 6 EDT Narrative 12/12/2022 10:05 EDT Cardiology [address] [place] [id number] Catheterization Laboratory Study Patient: Fortunato Hart M ? Study Date: ?12/08/2022 ?Accession #: ? [id number] : ? 1950 Referring: Elsie Otoole Diagnostic [...] Chest pain. Dyspnea. Nonsustained ventricular ?? tachycardia. Nxo-HO-ekmcrlpi myocardial infarction. Aortic stenosis. ?? Cerebrovascular disease. [...] HISTORY: Chest pain. ??Dyspnea. ??Nonsustained ventricular tachycardia. Uaz-ED-tocmzypx myocardial infarction. ??Aortic stenosis. Cerebrovascular disease. ??PMH: [...] 4. Right radial artery access. A 6FR/.021 [place] Slender sheath ?? was advanced into [...] Edgardo Ha MD - 12/12/2022 Cardiology [address] [place] [address] Catheterization Laboratory Study Patient: Fortunato Hart M [...] indications: Chest pain. Dyspnea. Nonsustained ventricular tachycardia. Oag-GF-okxkrkhr myocardial infarction. Aortic stenosis. Cerebrovascular disease. 2. [...] HISTORY: Chest pain. Dyspnea. Nonsustained ventricular tachycardia. Ixd-QI-hxlbdejo myocardial infarction. Aortic stenosis. Cerebrovascular disease. PMH: [...] 4. Right radial artery access. A 6FR/.021 [place] Slender sheath was advanced into the [...] 13:01 EDT) 12/08/2022 13:0 1 EDT Narrative [facility] EKG - 12/26/2022 14:49 EDT ? [facility] ? Test Date: ?2022-12-08 Pat Name: ? FORTUNATO TANNER ?Department: ?? [place] [address] ? Room: ? CL Gender: ? Female ? Ostomy Nurse: ?? [id number] : ?1950 ? Requested By: DELL LOPEZ [facility] Order Number: [id number] ? Reading MD: ?? REILLY DUQUE MD PhD ? Measurements Intervals ?[place] ? Rate: ? 49 ? P: ? WI: ? 0 ?QRS: ?84 QRSD: ? 122 [...] Reilly Duque MD PhD - 12/26/2022 [facility] Test Date: 2022-12-08 Pat Name: FORTUNATO HART Department: [place] [address] Room: Gender: Female Ostomy Nurse: [id number] : 1950 Requested By: DELL BEAR Order Number: [id number] Reading MD: REILLY DUQUE [facility] Measurements Intervals [place] Rate: 49 P: WI: 0 QRS: 84 QRSD: 122 T: 175 [...] PhD. Eddie Damon CARDIAC ECG ORDERAB LES [facility] * (ABNORMAL) POCT GLUCOSE, INTERFACED (12/08/2022 12:21 EDT) Glucose, POC 132(H) 70 - 100 mg/dL 12/08/2022 12:23 EDT [facility] HN LAB POC COMMENT (GLUCOSE) Test Performed by Nursing Services 12/08/2022 12:23 EDT [facility] Blood CAPILLARY BLOOD / Unknown 12/08/2022 12:21 EDT 12/08/2022 12:22 EDT Darion Tinajero MD POINT OF CARE TEST O RDERABLES Performing Organization Address [facility] Co de Phone Number [facility] [address] [place] [address] * ECG REPORT - SCANNED (12/08/2022 12:18 EDT) 12/08/2022 12:1 8 EDT Scan 2 Neck Band Operator PROCEDURE/MINOR CROW GICAL ORDERABLES * HEPARIN LEVEL - UNFRACTIONATED HEPARIN (12/08/2022 6:02 EDT) Heparin Level-UFH 0.56 Therapeutic Range: 0.30 - 0.70 IU/mL 12/08/2022 6:41 EDT [facility] Comment:Unfractionated hepar in therapeutic [...] & PF4 ORD ERABLES Performing Organization Address City/[facility]/ZIP Co de Phone Number [facility] [address] [place] [address] * MAGNESIUM (12/08/2022 6:02 EDT) Pathologist [facility] Magnesium 2.0 1.7 - 2.8 mg/dL 12/08/2022 7:10 [facility] Blood VENOUS BLOOD / Unknown Venipuncture / Unknown 12/08/2022 6:02 EDT 12/08/2022 6:40 EDT Vikash Guzman MD CHEMISTRY & BLOOD GA S ORDERABLES [facility] [address] [place] [address] * (ABNORMAL) BASIC METABOLIC PANEL (BMP) (12/08/2022 6:02 EDT) Pathologist [facility] Sodium 139 136 - 145 mmol/L 12/08/2022 7:10 [facility] Potassium 4.2 3.5 - 5.0 mmol/L 12/08/2022 7:10 [facility] Chloride 107 96 - 110 mmol/L 12/08/2022 7:10 [facility] CO2 Total 20(L) 22 - 32 mmol/L 12/08/2022 7:10 [facility] Anion Gap 12 5 - 14 mmol/L 12/08/2022 7:10 [facility] Glucose 188(H) 70 - 100 mg/dl 12/08/2022 7:10 [facility] Calcium 10.4 8.5 - 10.5 mg/dL 12/08/2022 7:10 [facility] BUN 14 10 - 26 mg/dL 12/08/2022 7:10 [facility] Creatinine 0.96 0.52 - 1.04 mg/dL 12/08/2022 7:10 [facility] eGFR 64 >60 mL/min/1.73 m2 12/08/2022 7:10 [facility] Blood VENOUS BLOOD / Unknown Venipuncture / Unknown 12/08/2022 6:02 EDT 12/08/2022 6:40 EDT Darion Tinajero MD CHEMISTRY & BLOOD GA S ORDERABLES [facility] [address] [place] [address] * (ABNORMAL) COMPLETE BLOOD COUNT (12/08/2022 6:02 EDT) WBC 6.56 4.00 - 12.40 K/cmm 12/08/2022 6:31 EDT [facility] RBC 3.80(L) 3.86 - 5.04 M/cmm 12/08/2022 6:31 [facility] Hemoglobin 9.9(L) 11.6 - 15.2 g/dL 12/08/2022 6:31 [facility] HCT 31.4(L) 34.9 - 44.4 % 12/08/2022 6:31 [facility] MCV 83 81 - 98 fL 12/08/2022 6:31 [facility] MCH 26.1(L) 26.7 - 33.3 pg 12/08/2022 6:31 [facility] MCHC 31.5(L) 32.1 - 35.9 g/dL 12/08/2022 6:31 [facility] RDW-CV 15.3(H) <14.7 % 12/08/2022 6:31 [facility] RDW-SD 45.6 <50.4 fl 12/08/2022 6:31 [facility] PLT 431(H) 141 - 377 K/cmm 12/08/2022 6:31 [facility] MPV 10.4 9.5 - 12.7 fL 12/08/2022 6:31 [facility] Blood VENOUS BLOOD / Unknown Venipuncture / Unknown 12/08/2022 6:02 EDT 12/08/2022 6:19 EDT Darion Tinajero MD HEMATOLOGY & PF4 ORD ERABLES [facility] [address] [place] [address] * (ABNORMAL) POCT GLUCOSE, INTERFACED (12/08/2022 6:00 EDT) Glucose, POC 193(H) 70 - 100 mg/dL 12/08/2022 6:01 EDT [facility] HN LAB POC COMMENT (GLUCOSE) Test Performed by Nursing Services 12/08/2022 6:01 EDT [facility] Blood CAPILLARY BLOOD / Unknown 12/08/2022 6:00 EDT 12/08/2022 6:01 EDT Darion Tinajero MD POINT OF CARE TEST O RDERABLES Performing Organization Address City/[facility]/ZIP Co de Phone Number [facility] [address] [place] [address] * (ABNORMAL) POCT GLUCOSE, INTERFACED (12/08/2022 0:26 EDT) Glucose, POC 173(H) 70 - 100 mg/dL 12/08/2022 0:27 EDT [facility] HN LAB POC COMMENT (GLUCOSE) Test Performed by Nursing Services 12/08/2022 0:27 EDT [facility] Blood CAPILLARY BLOOD / Unknown 12/08/2022 0:26 EDT 12/08/2022 0:27 EDT Darion Tinajero MD POINT OF CARE TEST O RDERABLES [facility] [address] [place] [address] * (ABNORMAL) POCT GLUCOSE, INTERFACED (12/07/2022 21:11 EDT) Glucose, POC 152(H) 70 - 100 mg/dL 12/07/2022 21:12 EDT [facility] HN LAB POC COMMENT (GLUCOSE) Test Performed by Nursing Services 12/07/2022 21:12 EDT [facility] Blood CAPILLARY BLOOD / Unknown 12/07/2022 21:11 EDT 12/07/2022 21:12 EDT Von Walters MD POINT OF CARE TEST ORDERABLES Performing Organization Address [facility]/ZIP Co de Phone Number [facility] [address] [place] [address] * (ABNORMAL) POCT GLUCOSE, INTERFACED (12/07/2022 16:32 EDT) Glucose, POC 123(H) 70 - 100 mg/dL 12/07/2022 16:33 EDT [facility] HN LAB POC COMMENT (GLUCOSE) Test Performed by Nursing Services 12/07/2022 16:33 EDT [facility] Blood CAPILLARY BLOOD / Unknown 12/07/2022 16:32 EDT 12/07/2022 16:33 EDT Darion Tinajero MD POINT OF CARE TEST O RDERABLES Performing Organization Address City/[facility]/ZIP Co de Phone Number [facility] [address] [place] [address] * NM CARD PET PHARM MULT STUDIES [...] Disease presenting as a direct transfer from [facility] fpr NSTEMI. Today for [...] CT finding(s): small pericardial effusion. Myocardial Flow [place] The myocardial flow reserve was 1.89 for [...] using independent software and evaluated by the radiologist/reading instructor. Images acquired at rest and post stress [...] 70 - 100 mg/dL 12/07/2022 13:21 EDT [facility] HN LAB POC COMMENT (GLUCOSE) Test Performed by Nursing Services 12/07/2022 13:21 EDT [facility] Blood CAPILLARY BLOOD / Unknown 12/07/2022 13:19 EDT 12/07/2022 13:21 EDT Darion Tinajero MD POINT OF CARE TEST O RDERABLES [facility] [address] [place] [address] * HEPARIN LEVEL - UNFRACTIONATED HEPARIN (12/07/2022 6:41 EDT) [facility] Heparin Level-UFH 0.65 Therapeutic Range: 0.30 - 0.70 IU/mL 12/07/2022 7:10 EDT [facility] Comment:Unfractionated hepar in therapeutic [...] & PF4 ORD ERABLES Performing Organization Address City/[facility] Co de Phone Number [facility] [address] [place] [address] * MAGNESIUM (12/07/2022 6:41 EDT) Magnesium 1.9 1.7 - 2.8 mg/dL 12/07/2022 7:24 EDT [facility] Blood VENOUS BLOOD / Unknown Venipuncture / Unknown 12/07/2022 6:41 EDT 12/07/2022 6:55 EDT Vikash Guzman MD CHEMISTRY & BLOOD GA S ORDERABLES Performing Organization Address [facility] Co de Phone Number [facility] [address] [place] [address] * (ABNORMAL) BASIC METABOLIC PANEL (BMP) (12/07/2022 6:41 EDT) Sodium 137 136 - 145 mmol/L 12/07/2022 7:24 EDT [facility] Potassium 4.0 3.5 - 5.0 mmol/L 12/07/2022 7:24 T [facility] Chloride 109 96 - 110 mmol/L 12/07/2022 7:24 T [facility] CO2 Total 20(L) 22 - 32 mmol/L 12/07/2022 7:24 T [facility] Anion Gap 8 5 - 14 mmol/L 12/07/2022 7:24 [facility] Glucose 167(H) 70 - 100 mg/dl 12/07/2022 7:24 T [facility] Calcium 10.1 8.5 - 10.5 mg/dL 12/07/2022 7:24 T [facility] BUN 14 10 - 26 mg/dL 12/07/2022 7:24 T [facility] Creatinine 0.94 0.52 - 1.04 mg/dL 12/07/2022 7:24 EDT [facility] eGFR 65 >60 mL/min/1.73 m2 12/07/2022 7:24 [facility] Blood VENOUS BLOOD / Unknown Venipuncture / Unknown 12/07/2022 6:41 EDT 12/07/2022 6:55 EDT Darion Tinajero MD CHEMISTRY & BLOOD GA S ORDERABLES [facility] [address] [place] [address] * (ABNORMAL) COMPLETE BLOOD COUNT (12/07/2022 6:41 EDT) WBC 7.35 4.00 - 12.40 K/cmm 12/07/2022 7:03 [facility] RBC 3.43(L) 3.86 - 5.04 M/cmm 12/07/2022 7:03 [facility] Hemoglobin 9.1(L) 11.6 - 15.2 g/dL 12/07/2022 7:03 [facility] HCT 28.4(L) 34.9 - 44.4 % 12/07/2022 7:03 [facility] MCV 83 81 - 98 fL 12/07/2022 7:03 [facility] MCH 26.5(L) 26.7 - 33.3 pg 12/07/2022 7:03 [facility] MCHC 32.0(L) 32.1 - 35.9 g/dL 12/07/2022 7:03 [facility] RDW-CV 15.1(H) <14.7 % 12/07/2022 7:03 [facility] RDW-SD 44.7 <50.4 fl 12/07/2022 7:03 [facility] PLT 401(H) 141 - 377 K/cmm 12/07/2022 7:03 [facility] MPV 10.0 9.5 - 12.7 fL 12/07/2022 7:03 EDT [facility] Blood VENOUS BLOOD / Unknown Venipuncture / Unknown 12/07/2022 6:41 EDT 12/07/2022 6:54 EDT Darion Tinajero MD HEMATOLOGY & PF4 ORD ERABLES Performing Organization Address City/[facility]/ZIP Co de Phone Number [facility] [address] [place] [address] * (ABNORMAL) POCT GLUCOSE, INTERFACED (12/07/2022 6:09 EDT) Glucose, POC 167(H) 70 - 100 mg/dL 12/07/2022 6:12 EDT [facility] HN LAB POC COMMENT (GLUCOSE) Test Performed by Nursing Services 12/07/2022 6:12 EDT [facility] Blood CAPILLARY BLOOD / Unknown 12/07/2022 6:09 EDT 12/07/2022 6:12 EDT Darion Tinajero MD POINT OF CARE TEST O RDERALASHELL Performing Organization Address [facility] Co de Phone Number [facility] [address] [place] [address] * (ABNORMAL) POCT GLUCOSE, INTERFACED (12/06/2022 21:14 EDT) Glucose, POC 183(H) 70 - 100 mg/dL 12/06/2022 21:15 EDT [facility] HN LAB POC COMMENT (GLUCOSE) Test Performed by Nursing Services 12/06/2022 21:15 EDT [facility] Blood CAPILLARY BLOOD / Unknown 12/06/2022 21:14 EDT 12/06/2022 21:15 EDT Darion Tinajero MD POINT OF CARE TEST O RDERABLES Performing Organization Address City/[facility]/ZIP Co de Phone Number [facility] [address] [place] [address] * (ABNORMAL) POCT GLUCOSE, INTERFACED (12/06/2022 16:36 EDT) Glucose, POC 172(H) 70 - 100 mg/dL 12/06/2022 16:37 EDT [facility] HN LAB POC COMMENT (GLUCOSE) Test Performed by Nursing Services 12/06/2022 16:37 EDT [facility] Blood CAPILLARY BLOOD / Unknown 12/06/2022 16:36 EDT 12/06/2022 16:37 EDT Darion Tinajero MD POINT OF CARE TEST O CHRISERALASHELL [facility] [address] [place] [address] * (ABNORMAL) POCT GLUCOSE, INTERFACED (12/06/2022 13:26 EDT) Glucose, POC 163(H) 70 - 100 mg/dL 12/06/2022 13:29 EDT [facility] HN LAB POC COMMENT (GLUCOSE) Test Performed by Nursing Services 12/06/2022 13:29 EDT [facility] Blood CAPILLARY BLOOD / Unknown 12/06/2022 13:26 EDT 12/06/2022 13:29 EDT Randy Sebastian MD POINT OF CARE TEST O HERNÁN [facility] [address] [place] [address] * (ABNORMAL) POCT GLUCOSE, INTERFACED (12/06/2022 12:17 EDT) Glucose, POC 160(H) 70 - 100 mg/dL 12/06/2022 12:19 EDT [facility] HN LAB POC COMMENT (GLUCOSE) Test Performed by Nursing Services 12/06/2022 12:19 EDT [facility] Blood CAPILLARY BLOOD / Unknown 12/06/2022 12:17 EDT 12/06/2022 12:18 EDT Darion Tinajero MD POINT OF CARE TEST O RDERABLES Performing Organization Address City/[facility]/ZIP Co de Phone Number [facility] [address] [place] [address] * HEPARIN LEVEL - UNFRACTIONATED HEPARIN (12/06/2022 12:09 EDT) Heparin Level-UFH 0.70 Therapeutic Range: 0.30 - 0.70 IU/mL 12/06/2022 12:37 EDT [facility] Comment:Unfractionated hepar in therapeutic [...] PF4 ORD ERABLES Performing Organization Address [facility] Co de Phone Number [facility] [address] [place] [address] * (ABNORMAL) POCT GLUCOSE, INTERFACED (12/06/2022 9:16 EDT) Glucose, POC 180(H) 70 - 100 mg/dL 12/06/2022 9:17 EDT [facility] HN LAB POC COMMENT (GLUCOSE) Test Performed by Nursing Services 12/06/2022 9:17 EDT [facility] Blood CAPILLARY BLOOD / Unknown 12/06/2022 9:16 EDT 12/06/2022 9:17 EDT Darion Tinajero MD POINT OF CARE TEST O RDERABLES Performing Organization Address City/[facility]/ZIP Co de Phone Number [facility] [address] [place] [address] * (ABNORMAL) POCT GLUCOSE, INTERFACED (12/06/2022 8:12 EDT) Pathologist [facility] Glucose, POC 179(H) 70 - 100 mg/dL 12/06/2022 8:19 EDT [facility] HN LAB POC COMMENT (GLUCOSE) Test Performed by Nursing Services 12/06/2022 8:19 EDT [facility] Blood CAPILLARY BLOOD / Unknown 12/06/2022 8:12 EDT 12/06/2022 8:19 EDT Darion Tinajero MD POINT OF CARE TEST O RDERABLES [facility] [address] [place] [address] * MAGNESIUM (12/06/2022 6:28 EDT) [facility] Magnesium 2.0 1.7 - 2.8 mg/dL 12/06/2022 7:51 EDT [facility] Blood VENOUS BLOOD / Unknown Venipuncture / Unknown 12/06/2022 6:28 EDT 12/06/2022 7:18 EDT Vikash Guzman MD CHEMISTRY & BLOOD GA S ORDERABLES [facility] [address] [place] [address] * (ABNORMAL) BASIC METABOLIC PANEL (BMP) (12/06/2022 6:28 EDT) [facility] Sodium 139 136 - 145 mmol/L 12/06/2022 7:51 EDT [facility] Potassium 3.8 3.5 - 5.0 mmol/L 12/06/2022 7:51 EDT [facility] Chloride 108 96 - 110 mmol/L 12/06/2022 7:51 EDT [facility] CO2 Total 20(L) 22 - 32 mmol/L 12/06/2022 7:51 [facility] Anion Gap 11 5 - 14 mmol/L 12/06/2022 7:51 [facility] Glucose 177(H) 70 - 100 mg/dl 12/06/2022 7:51 [facility] Calcium 9.9 8.5 - 10.5 mg/dL 12/06/2022 7:51 [facility] BUN 15 10 - 26 mg/dL 12/06/2022 7:51 [facility] Creatinine 0.89 0.52 - 1.04 mg/dL 12/06/2022 7:51 [facility] eGFR 70 >60 mL/min/1.73 m2 12/06/2022 7:51 [facility] Blood VENOUS BLOOD / Unknown Venipuncture / Unknown 12/06/2022 6:28 EDT 12/06/2022 7:18 EDT Darion Tinajero MD CHEMISTRY & BLOOD GA S ORDERABLES [facility] [address] [place] [address] * (ABNORMAL) COMPLETE BLOOD COUNT (12/06/2022 6:28 EDT) WBC 7.20 4.00 - 12.40 K/cmm 12/06/2022 7:33 [facility] RBC 3.58(L) 3.86 - 5.04 M/cmm 12/06/2022 7:33 [facility] Hemoglobin 9.4(L) 11.6 - 15.2 g/dL 12/06/2022 7:33 [facility] HCT 29.0(L) 34.9 - 44.4 % 12/06/2022 7:33 [facility] MCV 81 81 - 98 fL 12/06/2022 7:33 [facility] MCH 26.3(L) 26.7 - 33.3 pg 12/06/2022 7:33 [facility] MCHC 32.4 32.1 - 35.9 g/dL 12/06/2022 7:33 EDT [facility] RDW-CV 15.0(H) <14.7 % 12/06/2022 7:33 EDT [facility] RDW-SD 43.2 <50.4 fl 12/06/2022 7:33 EDT [facility] PLT 297 141 - 377 K/cmm 12/06/2022 7:33 EDT [facility] MPV 12.2 9.5 - 12.7 fL 12/06/2022 7:33 EDT [facility] Blood VENOUS BLOOD / Unknown Venipuncture / Unknown 12/06/2022 6:28 EDT 12/06/2022 7:17 EDT Darion Tinajero MD HEMATOLOGY & PF4 ORD ERABLES Performing Organization Address [facility] Co de Phone Number [facility] [address] [place] [address] * HEPARIN LEVEL - UNFRACTIONATED HEPARIN (12/06/2022 0:07 EDT) Heparin Level-UFH 0.62 Therapeutic Range: 0.30 - 0.70 IU/mL 12/06/2022 0:34 EDT [facility] Comment:Unfractionated hepar in therapeutic [...] & PF4 ORD ERABLES Performing Organization Address City/[facility]/ZIP Co de Phone Number [facility] [address] [place] [address] * (ABNORMAL) POCT GLUCOSE, INTERFACED (12/05/2022 21:08 EDT) Glucose, POC 288(H) 70 - 100 mg/dL 12/05/2022 21:10 EDT [facility] HN LAB POC COMMENT (GLUCOSE) Test Performed by Nursing Services 12/05/2022 21:10 EDT [facility] Blood CAPILLARY BLOOD / Unknown 12/05/2022 21:08 EDT 12/05/2022 21:10 EDT Darion Tinajero MD POINT OF CARE TEST O HERNÁN [facility] [address] [place] [address] * (ABNORMAL) POCT GLUCOSE, INTERFACED (12/05/2022 16:28 EDT) Glucose, POC 107(H) 70 - 100 mg/dL 12/05/2022 16:29 EDT [facility] HN LAB POC COMMENT (GLUCOSE) Test Performed by Nursing Services 12/05/2022 16:29 EDT [facility] Blood CAPILLARY BLOOD / Unknown 12/05/2022 16:28 EDT 12/05/2022 16:29 EDT Darion Tinajero MD POINT OF CARE TEST O HERNÁN Performing Organization Address City/[facility]/ZIP Co de Phone Number [facility] [address] [place] [address] * HEPARIN LEVEL - UNFRACTIONATED HEPARIN (12/05/2022 12:18 EDT) Heparin Level-UFH 0.71 Therapeutic Range: 0.30 - 0.70 IU/mL 12/05/2022 12:41 EDT [facility] Comment:Unfractionated hepar in therapeutic [...] Guzman MD HEMATOLOGY & PF4 ORD ERABLES [facility] [address] [place] [address] * (ABNORMAL) BASIC METABOLIC PANEL (BMP) (12/05/2022 12:18 EDT) Sodium 140 136 - 145 mmol/L 12/05/2022 13:12 [facility] Potassium 3.9 3.5 - 5.0 mmol/L 12/05/2022 13:12 [facility] Chloride 104 96 - 110 mmol/L 12/05/2022 13:12 [facility] CO2 Total 25 22 - 32 mmol/L 12/05/2022 13:12 [facility] Anion Gap 11 5 - 14 mmol/L 12/05/2022 13:12 [facility] Glucose 173(H) 70 - 100 mg/dl 12/05/2022 13:12 [facility] Calcium 10.5 8.5 - 10.5 mg/dL 12/05/2022 13:12 [facility] BUN 15 10 - 26 mg/dL 12/05/2022 13:12 [facility] Creatinine 0.89 0.52 - 1.04 mg/dL 12/05/2022 13:12 [facility] eGFR 70 >60 mL/min/1.73 m2 12/05/2022 13:12 [facility] Blood VENOUS BLOOD / Unknown Venipuncture / Unknown 12/05/2022 12:18 EDT 12/05/2022 12:25 EDT Darion Tinajero MD CHEMISTRY & BLOOD GA S ORDERABLES [facility] [address] [place] [address] * (ABNORMAL) COMPLETE BLOOD COUNT (12/05/2022 12:18 EDT) WBC 7.00 4.00 - 12.40 K/cmm 12/05/2022 12:32 EDT [facility] RBC 3.82(L) 3.86 - 5.04 M/cmm 12/05/2022 12:32 EDT [facility] Hemoglobin 10.2(L) 11.6 - 15.2 g/dL 12/05/2022 12:32 T [facility] HCT 31.9(L) 34.9 - 44.4 % 12/05/2022 12:32 [facility] MCV 84 81 - 98 fL 12/05/2022 12:32 EDT [facility] MCH 26.7 26.7 - 33.3 pg 12/05/2022 12:32 [facility] MCHC 32.0(L) 32.1 - 35.9 g/dL 12/05/2022 12:32 [facility] RDW-CV 14.9(H) <14.7 % 12/05/2022 12:32 [facility] RDW-SD 44.8 <50.4 fl 12/05/2022 12:32 EDT [facility] PLT 467(H) 141 - 377 K/cmm 12/05/2022 12:32 [facility] MPV 10.1 9.5 - 12.7 fL 12/05/2022 12:32 [facility] Blood VENOUS BLOOD / Unknown Venipuncture / Unknown 12/05/2022 12:18 EDT 12/05/2022 12:25 EDT Darion Tinajero MD HEMATOLOGY & PF4 ORD ERABLES [facility] [address] [place] [address] * (ABNORMAL) POCT GLUCOSE, INTERFACED (12/05/2022 11:34 EDT) Glucose, POC 198(H) 70 - 100 mg/dL 12/05/2022 11:35 EDT [facility] HN LAB POC COMMENT (GLUCOSE) Test Performed by Nursing Services 12/05/2022 11:35 EDT [facility] Blood CAPILLARY BLOOD / Unknown 12/05/2022 11:34 EDT 12/05/2022 11:35 EDT Darion Tinajero MD POINT OF CARE TEST O RDERABLES Performing Organization Address [facility] Co de Phone Number [facility] [address] [place] [address] * HEPARIN LEVEL - UNFRACTIONATED HEPARIN (12/05/2022 2:48 EDT) [facility] Heparin Level-UFH 0.89 Therapeutic Range: 0.30 - 0.70 IU/mL 12/05/2022 3:05 EDT [facility] Comment:Unfractionated hepar in therapeutic [...] & PF4 ORD ERABLES Performing Organization Address City/[facility]/ZIP Co de Phone Number [facility] [address] [place] [address] * (ABNORMAL) POCT GLUCOSE, INTERFACED (12/05/2022 0:07 EDT) Glucose, POC 187(H) 70 - 100 mg/dL 12/05/2022 0:08 EDT [facility] HN LAB POC COMMENT (GLUCOSE) Test Performed by Nursing Services 12/05/2022 0:08 EDT [facility] Blood CAPILLARY BLOOD / Unknown 12/05/2022 0:07 EDT 12/05/2022 0:08 EDT Randy Sebastian MD POINT OF CARE TEST O RDERALASHELL Performing Organization Address [facility] Co de Phone Number [facility] [address] [place] [address] * (ABNORMAL) POCT GLUCOSE, INTERFACED (12/04/2022 20:36 EDT) Glucose, POC 267(H) 70 - 100 mg/dL 12/04/2022 20:37 EDT [facility] HN LAB POC COMMENT (GLUCOSE) Test Performed by Nursing Services 12/04/2022 20:37 EDT [facility] Blood CAPILLARY BLOOD / Unknown 12/04/2022 20:36 EDT 12/04/2022 20:36 EDT Randy Sebastian MD POINT OF CARE TEST O HERNÁN Performing Organization Address [facility] Co de Phone Number [facility] [address] [place] [address] * (ABNORMAL) POCT GLUCOSE, INTERFACED (12/04/2022 19:41 EDT) Glucose, POC 190(H) 70 - 100 mg/dL 12/04/2022 19:42 EDT [facility] HN LAB POC COMMENT (GLUCOSE) Test Performed by Nursing Services 12/04/2022 19:42 EDT [facility] Blood CAPILLARY BLOOD / Unknown 12/04/2022 19:41 EDT 12/04/2022 19:42 EDT Darion Tinajero MD POINT OF CARE TEST O RDERABLES Performing Organization Address City/[facility]/ZIP Co de Phone Number [facility] [address] [place] [address] * (ABNORMAL) POCT GLUCOSE, INTERFACED (12/04/2022 18:03 EDT) Glucose, POC 129(H) 70 - 100 mg/dL 12/04/2022 18:04 EDT [facility] HN LAB POC COMMENT (GLUCOSE) Test Performed by Nursing Services 12/04/2022 18:04 EDT [facility] Blood CAPILLARY BLOOD / Unknown 12/04/2022 18:03 EDT 12/04/2022 18:04 EDT Darion Tinajero MD POINT OF CARE TEST O RDERABLES Performing Organization Address [facility] Co de Phone Number [facility] [address] [place] [address] * MR CARDIAC W WO CONTRAST W [...] - UNFRACTIONATED HEPARIN (12/04/2022 12:40 EDT) Pathologist [facility] Heparin Level-UFH 1.84(HH) Therapeutic Range: 0.30 - 0.70 IU/mL 12/04/2022 13:06 EDT [facility] Comment: Recent or concurrent [...] Sebastian MD HEMATOLOGY & PF4 ORD ERABLES [facility] [address] [place] [address] * (ABNORMAL) POCT GLUCOSE, INTERFACED (12/04/2022 12:26 EDT) Pathologist [facility] Glucose, POC 164(H) 70 - 100 mg/dL 12/04/2022 12:28 EDT [facility] HN LAB POC COMMENT (GLUCOSE) Test Performed by Nursing Services 12/04/2022 12:28 EDT [facility] Blood CAPILLARY BLOOD / Unknown 12/04/2022 12:26 EDT 12/04/2022 12:28 EDT Darion Tinajero MD POINT OF CARE TEST O RDERABLES [facility] [address] [place] [address] * (ABNORMAL) POCT GLUCOSE, INTERFACED (12/04/2022 7:55 EDT) Glucose, POC 189(H) 70 - 100 mg/dL 12/04/2022 7:57 EDT [facility] HN LAB POC COMMENT (GLUCOSE) Test Performed by Nursing Services 12/04/2022 7:57 EDT [facility] Blood CAPILLARY BLOOD / Unknown 12/04/2022 7:55 EDT 12/04/2022 7:57 EDT Darion Tinajero MD POINT OF CARE TEST O RDERABLES [facility] [address] [place] [address] * (ABNORMAL) BASIC METABOLIC PANEL (BMP) (12/04/2022 7:26 EDT) [facility] Sodium 139 136 - 145 mmol/L 12/04/2022 8:31 [facility] Potassium 3.9 3.5 - 5.0 mmol/L 12/04/2022 8:31 [facility] Chloride 104 96 - 110 mmol/L 12/04/2022 8:31 [facility] CO2 Total 21(L) 22 - 32 mmol/L 12/04/2022 8:31 [facility] Anion Gap 14 5 - 14 mmol/L 12/04/2022 8:31 [facility] Glucose 229(H) 70 - 100 mg/dl 12/04/2022 8:31 [facility] Calcium 10.3 8.5 - 10.5 mg/dL 12/04/2022 8:31 [facility] BUN 18 10 - 26 mg/dL 12/04/2022 8:31 [facility] Creatinine 0.90 0.52 - 1.04 mg/dL 12/04/2022 8:31 [facility] eGFR 69 >60 mL/min/1.73 m2 12/04/2022 8:31 [facility] Blood VENOUS BLOOD / Unknown Venipuncture / Unknown 12/04/2022 7:26 EDT 12/04/2022 8:03 EDT Darion Tinajero MD CHEMISTRY & BLOOD GA S ORDERABLES [facility] [address] [place] [address] * (ABNORMAL) COMPLETE BLOOD COUNT (12/04/2022 7:26 EDT) WBC 8.02 4.00 - 12.40 K/cmm 12/04/2022 8:16 [facility] RBC 3.67(L) 3.86 - 5.04 M/cmm 12/04/2022 8:16 [facility] Hemoglobin 9.8(L) 11.6 - 15.2 g/dL 12/04/2022 8:16 [facility] HCT 30.4(L) 34.9 - 44.4 % 12/04/2022 8:16 [facility] MCV 83 81 - 98 fL 12/04/2022 8:16 [facility] MCH 26.7 26.7 - 33.3 pg 12/04/2022 8:16 [facility] MCHC 32.2 32.1 - 35.9 g/dL 12/04/2022 8:16 [facility] RDW-CV 14.9(H) <14.7 % 12/04/2022 8:16 [facility] RDW-SD 44.5 <50.4 fl 12/04/2022 8:16 [facility] PLT 455(H) 141 - 377 K/cmm 12/04/2022 8:16 [facility] MPV 10.7 9.5 - 12.7 fL 12/04/2022 8:16 [facility] Blood VENOUS BLOOD / Unknown Venipuncture / Unknown 12/04/2022 7:26 EDT 12/04/2022 8:01 EDT Darion Tinajero MD HEMATOLOGY & PF4 ORD ERABLES [facility] [address] [place] [address] * (ABNORMAL) VITAMIN D (25,OH) (12/04/2022 7:26 EDT) 25OH Vitamin D Tot 21(L) 30 - 100 ng/mL 12/04/2022 12:18 EDT [facility] Comment: Vitamin D 25,OH Interpretive Ranges: Deficiency: ??<10.0 ng/mL Insufficiency: ??10.0 - 30.0 ng/mL Sufficiency: ??30.0 - 100.0 ng/mL Toxicity: ??>100.0 ng/mL Blood VENOUS BLOOD / Unknown Venipuncture / Unknown 12/04/2022 7:26 EDT 12/04/2022 8:03 EDT Darion Tinajero MD CHEMISTRY & BLOOD GA S ORDERABLES Performing Organization Address [facility] Co de Phone Number [facility] [address] [place] [address] * (ABNORMAL) LIPID PROFILE (INCLUDES CHOLESTEROL, TRIGLYCERIDES, HDL, LDL) (12/03/2022 23:53 EDT) Cholesterol 107 <200 mg/dL 12/04/2022 0:16 EDT [facility] Comment:Note that therapeuti c goals will differ between patients based on cardiac risk factors and current medical therapy. HDL 40(L) >=50 mg/dL 12/04/2022 0:16 EDT [facility] Comment:Note that therapeuti c goals will differ between patients based on cardiac risk factors and current medical therapy. LDL, Calculated 29 <160 mg/dL 0:16 EDT [facility] Comment:Note that therapeuti c goals will differ between patients based on cardiac risk factors and current medical therapy. Triglyceride 188(H) <=150 mg/dL 12/04/2022 0:16 EDT [facility] Comment:Note that therapeuti c goals will differ between patients based on cardiac risk factors and current medical therapy. Chol/HDL Ratio 2.7 See Note 12/04/2022 0:16 EDT [facility] Comment:No reference range h as been established for CHOL/HDL ratio. Non HDL Cholesterol 67 <160 mg/dL 12/04/2022 0:16 EDT [facility] Comment:Note that therapeuti c goals will differ between patients based on cardiac risk factors and current medical therapy. Blood VENOUS BLOOD / Unknown Venipuncture / Unknown 12/03/2022 23:53 EDT 12/04/2022 0:00 EDT Darion Tinajero MD CHEMISTRY & BLOOD GA S ORDERABLES [facility] [address] [place] [address] * (ABNORMAL) HEPARIN LEVEL - UNFRACTIONATED HEPARIN (12/03/2022 23:53 EDT) Heparin Level-UFH 1.52(HH) Therapeutic Range: 0.30 - 0.70 IU/mL 12/04/2022 0:24 EDT [facility] Comment: Recent or concurrent [...] PF4 ORD ERABLES Performing Organization Address [facility]/ZIP Co de Phone Number [facility] [address] [place] [address] * (ABNORMAL) TROPONIN I (12/03/2022 23:53 EDT) Troponin I (ng/mL) 0.105(H) <0.034 ng/mL 12/04/2022 0:32 EDT [facility] Blood VENOUS BLOOD / Unknown Venipuncture / Unknown 12/03/2022 23:53 EDT 12/04/2022 0:00 EDT Narrative [facility] - 12/04/2022 0:32 EDT The results of this assay can be falsely lowered due to the consumption of Biotin. Darion Tinajero MD CHEMISTRY & BLOOD GA S ORDERABLES Performing Organization Address [facility] Co de Phone Number [facility] [address] [place] [address] * MAGNESIUM (12/03/2022 23:11 EDT) Pathologist [facility] Magnesium 1.9 1.7 - 2.8 mg/dL 12/03/2022 23:42 EDT [facility] Comment:Moderate hemolysis i dentified, interpret with caution as results may be affected due to hemolysis. Blood VENOUS BLOOD / Unknown Venipuncture / Unknown 12/03/2022 23:11 EDT 12/03/2022 23:16 EDT Darion Tinajero MD CHEMISTRY & BLOOD GA S ORDERABLES Performing Organization Address [facility] Co de Phone Number [facility] [address] [place] [address] * EKG 12-LEAD (12/03/2022 22:36 EDT) 12/03/2022 22:3 6 EDT Narrative [facility] EKG - 12/08/2022 12:12 EDT ? [facility] ? Test Date: ?2022-12-03 Pat Name: ? FORTUNATO TANNER ?Department: ?? [place] ? Room: ? [id number] Gender: ? Female ? Ostomy Nurse: ?? : ?1950 ? Requested By: MILTON LEYVA Order Number: [id number] ? Reading MD: ?? DENICE LOBEL MD ? Measurements Intervals ?[place] ? Rate: ? 79 ? P: ?51 WI: ? 299 ?QRS: ?-20 QRSD: ? 117 [...] Note Denice Nash MD - 12/08/2022 [facility] Test Date: 2022-12-03 Pat Name: FORTUNATO HART Department: [place] [address] Room: [facility] Gender: Female Ostomy Nurse: : 1950 Requested By: MILTON LEYVA Order Number: [id number] Reading MD: DENICE NASH MD Measurements Intervals [place] Rate: 79 P: 51 WI: 299 QRS: -20 QRSD: 117 T: 145 [...] Darion Tinajero MD CARDIAC ECG ORDERABL ES [facility] EKG documented in this encounter Visit Diagnoses Diagnosis ASCVD (arteriosclerotic cardiovascular disease)- Primary Unspecified cardiovascular disease NSTEMI (non-ST elevated myocardial infarction) ([facility]) Acute myocardial infarction, subendocardial infarction, episode of care unspecified Chest pain, unspecified type Hypertrophic cardiomegaly Duodenal erosion Duodenal ulcer, unspecified as acute or chronic, without hemorrhage, perforation, or obstruction Gastrointestinal hemorrhage, unspecified gastrointestinal hemorrhage type NSTEMI (non-ST elevated myocardial infarction) ([facility]) Acute myocardial infarction, subendocardial infarction, episode of care unspecified Hypertrophic cardiomegaly NSTEMI (non-ST elevated myocardial infarction) ([facility]) Acute myocardial infarction, subendocardial infarction, episode of care unspecified documented in this encounter Admitting Diagnoses Diagnosis NSTEMI (non-ST elevated myocardial infarction) ([facility]) Acute myocardial infarction, subendocardial infarction, episode [...] Provider Hn - Reason: Patient off unit)162 ([facility] Unhold - Provider: Automatic Transfer Provider Hn) [...] Provider Hn - Reason: Patient off unit)162 ([facility] Unhold - Provider: Automatic Transfer Provider Hn)2032 [...] 1336 (Given - Provider: Loren Maier RN)1351 ([facility] Hold - Provider: Automatic Transfer Provider Hn - Reason: Patient off unit)1620 ([facility] Unhold - Provider: Automatic Transfer Provider Hn)2325 [...] at 1638, Low Blood Sugar, Routine 1351 ([facility] Hold - Provider: Automatic Transfer Provider Hn - Reason: Patient off unit)1620 ([facility] Unhold - Provider: Automatic Transfer Provider Hn) fentaNYL citrate (PF) injection (CANCELED) PRN, Starting on e 12/08/22 at 1451, Until Wed12/08/22 at 1547, Routine, Intraprocedure 1451 (Given - Provider: Mercedez Woody, JALEN) glucagon injection 1 mg 1 mg, intramuscular, PRN, Starting on Tash 12/03/22 at 2335, Until Wed12/09/22 at 1638, Other, Low blood sugar, Routine 1351 ([facility] Hold - Provider: Automatic Transfer Provider Hn - Reason: Patient off unit)1620 ([facility] Unhold - Provider: Automatic Transfer Provider Hn) [...] 40 mg 1 11/19 polyethylene glycol 3350 ([place] RALAX) packet 17 g 1 12/03/2022 senna [...] Date First Orde red Date 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
--- OUTSIDE RECORDS SUMMARY | 2024-01-14 11:09 | XMS_ITS | Encounter Summary ---
Author Organization [facility] Address [address] [place] [address] Care Team Providers Care Terminal Make Up Operator Name Role Phone Bryant Crain MD Primary Care Provider [phone] Carlos Ha [employer] Unavailable [phone] Reason for Referral * Laboratory Services (Routine/Next Available) - New Request Specialty Diagnoses / Procedures Referred By Charo daniel Referred To Contact Diagnoses NSTEMI (non-ST elevated myocardial infarction) (HCC-CMS) ASCVD (arteriosclerotic cardiovascular disease) Duodenal erosion Gastrointestinal hemorrhage, unspecified gastrointestinal hemorrhage type Procedures COMPLETE BLOOD COUNT Collette Park NP [address] [facility] [address] [place] [phone] Referral ID Status Reason Start Date Expiration Date V isits Requested Visits Authorized [id number] New Request 12/09/2022 1 1 * Consult (Routine/Next Available) - New Request Specialty Diagnoses / Procedures Referred By Charo daniel Referred To Contact Cardiac Rehabilitation Diagnoses NSTEMI (non-ST elevated myocardial infarction) (HCC-CMS) Collette Park NP [address] [facility] [address] [place] [phone] [facility] [address] [place] [address] Referral ID Status Reason Start Date Expiration Date Visits Requested Visits Authorized [id number] New Request Specialty Services Required 12/08/2022 1 1 Question Answer Reason for Request: s/p PCI * (Routine/Next Available) Specialty Diagnoses / Procedures Referred By Charo daniel Referred To Contact Collette Park NP [address] [phone] Referral ID Status Reason Start Date Expiration Date V isits Requested Visits Authorized Specialty Services Required Comments Your local cardiac rehab program will contact you and/or your graduate teaching associate to discuss. * Follow Up (Routine/Next Available) - New Request Specialty Diagnoses / Procedures Referred By Charo daniel Referred To Contact Diagnoses NSTEMI (non-ST elevated myocardial infarction) ([facility]-CMS) Collette Park NP [address] [phone] Bryant Crain MD [address] [place] [phone] Referral ID Status Reason Start Date Expiration Date Visits Requested Visits Authorized [id number] New Request Continuity of Care 12/08/2022 1 1 Question Answer Reason for Request: s/p PCI * Follow Up (Routine/Next Available) - Denied Specialty Diagnoses / Procedures Referred By Contloreto t Referred To Contact Cardiology Diagnoses NSTEMI (non-ST elevated myocardial infarction) (HCC-CMS) Collette Park NP [address] [phone] Carlos Ha NP [address] [facility] [address] [place] [address] Referral ID Status Reason Start Date Expiration Date V isits Requested Visits Authorized [id number] Denied Specialty Services Required 12/08/2022 1 0 Question Answer Reason for Request: s/p PCI Reason for Visit * Auth/Cert (Routine) Specialty Diagnoses / Procedures Referred By Contac t Referred To Contact Diagnoses NSTEMI (non-ST elevated myocardial infarction) (HCC-CMS) NSTEMI, rising troponin Referral ID Status Reason Start Date Expiration Date Visits Re quested Visits Authorized [id number] 1 1 Encounter Details Date Type Department Care Team (Late st Contact Info) Description 12/03/2022 22:09 EDT - 12/09/2022 14:30 EDT Hospital Encounter [facility] Cardiac Unit [address] [place] [address] Randy Sebastian MD [address] [place] [phone] Von Walters MD [address] [facility], [address] [place] [phone] Gita Westbrook MD [address] [facility] [address] [place] [phone] ASCVD (arteriosclerotic cardiovascular disease) (Primary Dx); NSTEMI [...] Resolved ??? NSTEMI (non-ST elevated myocardial infarction) ([facility] ([facility]) 12/07/2022 Principal Procedure: Heart cath and Percutaneous coronary intervention Date: 12/08/2022 Access: Right radial artery ?? Procedure: She was brought to [facility] for the procedure: Diagnostic [...] from base to apex. The distal apex ([id number]) is concentrically involved by delayed enhancement. Left [...] Disease presenting as a direct [place] [facility] [place] presented [place]01 due to shortness of breath, and chest tightness that woke her up from her sleep 3- 4 days prior. At [facility] she was diuresed with IV lasix BID, however trop was still dynamic, requiring a transfer for an ischemic evaluation. At [facility] she underwent a NM PET scan which showed reversible ischemia and she was therefore taken to the rd lab technician for further evaluation and treatment. Patient had heart cath and stenting as above. Patient did well overnight and was free of arrhythmias on telemetry. Echo done, EF 60-65% with diastolic dysfunction and septal asymmetric hypertrophy which is chronic for her. Patient was restarted on MANAGER TRAINING [employer] DEVELOPMENT GDMT as well as new to her jardiance, losartan and spironolactone, tolerating well. Advise following up with OP provider to titrate GDMT as clinically indicated. Of note, patient had a few episodes of asymptomatic AV lilly dysfunction, EP consulted and after reviewing her ECGs and tele, recommend safe discharge on MANAGER TRAINING AND DEVELOPMENT metop 12.5mg daily, restarted during this admission [...] was requested with PCP and Carlos Ha [employer]. Pt was also referred for cardiac rehab evaluation at [facility]. Of note, PLT noted to be [...] ??? Propoxyphene N-Acetaminophen Other reaction(s): Hallucinations ??? Snwklsp-Xyc-Pxg Reductase Inhibitors ??? Trulicity [Dulaglutide] Gi Side [...] 11/11/2022 Discharge Follow Up Appointments Scheduled with [facility] Appointments Outside of [facility] We Will Schedule Follow-up appointments and procedures [facility] Cardiac Rehabilitation Referral Your local cardiac rehab program will contact you and/or your graduate teaching associate to discuss. Authorizing Provider: Collette Coker NP [...] for 7 days. blood glucose meter by [facility] (non-drug; combo route) route daily. One touch verio meter or best covered by insurance. cetirizine 10 mg tablet Commonly known as: ZYRTEC Cholecalciferol (Vitamin D3) 10 mcg (400 unit) tablet cyanocobalamin 500 mcg tablet Commonly known as: VITAMIN B-12 FreeStyle Vicky 2 [place] [facility] Generic drug: flash glucose scanning reader 1 Device by [facility] (non-drug; combo route) route daily. Dispense one [...] Tablets by mouth daily. ONE TOUCH COMBO [facility] OneTouch Ultra Blue Test Strip test [...] gauge x 1/4 needle Generic drug: Insulin [place] (Disposable) * This list has 2 medication(s) that are the same as other medications prescribed for you. Read thedirections carefully, and ask your doctor or other care provider to review them with you. Where to Get Your Medications These medications were sent to [facility] - [address] [id number] ?? aspirin 81 mg EC tablet ?? [...] up with your primary care provider or graduate teaching associate. * Discharge Instr - DME* Zandra Monge [...] hyperglycemia, with long-term current use of insulin ([facility]) by [facility] (non-drug; combo route) route daily. One touch [...] glucose scanning reader (FREESTYLE VICKY 2 READER) [facility] 1 Device by [facility] (non-drug; combo route) route daily. Dispense one [...] 01/18/2020 lancets/blood glucose strips (ONE TOUCH COMBO [facility]) -to test blood sugar - twice daily losartan (COZAAR) 25 mg tablet Take 1 Tablet by mouth at bedtime. 90 Tablet 3 12/09/2022 magnesium oxide (MAG-OX) 400 mg (241.3 mg magnesium) tablet Take 1 Tablet by mouth daily. metFORMIN (GLUCOPHAGE-XR) 750 mg ER tablet Take 1 Tablet by mouth 2 times daily. AvolentTOUCH ULTRA BLUE TEST STRIP test strips TEST [...] Means Destination Comment s Home or Self Long Term documented in this encounter Progress Notes * Ramona Ingram - 12/08/2022 1442 EDT Spiritual Care Department Catalogue Librarian Note Re: Fortunato Hart : 1950 Room: /[facility] Service: Cardiology Mandaeism: Hindu Fortunato has received a visit from the Spiritual Care Department on 12/08/2022. Assessment/Comments: I responded to Fortunato's request for the Sacrament before her procedure. Met with her and her spouse, Kenneth at bedside. They were both receptive and engaged this Catalogue Librarian. I explored with Fortunato, her hospitalization, treatment [...] Care Welcomed End of Life Patient Is Tenriism Importance Moderately Important Current Support System Spouse/Significant Other, Family/Friends Level of Support Strong Support ENCOUNTER DATA Date of Encounter 12/08/22 Time of Encounter 1145 Reason for Encounter Referral Referred by Catalogue Librarian Care Level 4 - Significant Patient Concerns Reason not visited ENCOUNTER Needs Addressed Catalogue Librarian Support, Fear/Anxiety, Sacraments Interventions Assessed and Affirmed Strengths, Build Relationship, Prayer, Sacraments Sacraments Provided Anointed Date of Anointing 12/08/22 Communion Date of Communion Date of Temple OUTCOME Outcome Stress Level Reduced Stress Outcome of Encounter Patient Satisfied, Needs Met CARE PLAN Plan Patient/Family will Call if Needed Consult With Additional Support Was Clergy Needed? Yes, provided, Kerfer Machine Operator TIME STAMP: Total time spent 20 minutes in direct floor time; >50% of time was spent in spiritual care. RAMONA INGRAM 12/08/2022 14:42 * Kaila Dotson - 12/08/2022 0931 EDT Spiritual Care Department Catalogue Librarian Note Re: Fortunato Hart : 1950 Room: [id number] Service: Cardiology Mandaeism: Hindu Fortunato has received a visit from the Spiritual Care Department on 12/08/2022. Assessment/Comments: Fortunato and Kenneth (of forty-five years!) welcome debarker operator general internist and physician leader. Both appear to be coping well with humor, family texting, and going through word puzzles together, though Fortunato shares that 'I'm a little anxious' about the waiting - 'I'd just like to get the heck on out of here.' Catalogue Librarian general internist and physician leader affirms the understandable anxiety and frustration of uncertainty. Per Fortunato, her Hindu charly provides further meaning. She would like sacramental support from a Hindu debarker operator when possible. Catalogue Librarian general internist and physician leader will reach out to Father Ramona, unit staff debarker operator. DEMOGRAPHICS Spiritual Care Welcomed Patient Is Tenriism Importance Moderately Important Current Support System Spouse/Significant Other, Family/Friends Level of Support Strong Support ENCOUNTER DATA Date of Encounter 12/08/22 Time of Encounter 0910 Reason for Encounter Initial Visit Care Level 3 - Some Matter of Substance ENCOUNTER Needs Addressed Catalogue Librarian Support, Family Support, Fear/Anxiety, Frustration, Gratitude, Prayer Support Interventions Assessed and Affirmed Strengths, Assessed Spiritual/Tenriism Needs, Build Relationship, Explored Spiritual/Relgious/Social Supports, Family Support, Prayer OUTCOME Outcome Stress Level Reduced Stress Outcome of Encounter Continues to Process Issue, Family Supported CARE PLAN Plan Continued Catalogue Librarian Support Was Clergy Needed? Yes, unavailable, Kerfer Machine Operator TIME STAMP: Total time spent [...] present. Medications Reviewed: Changes notable for holding MANAGER TRAINING AND DEVELOPMENT metoprolol due to long QTc Labs Reviewed: [...] of diffuse obstructive coronary disease, plan for [facility]. N-STEMI: HLD HTN Symptomatic, troponin peaked [...] - Hx of statin intolerance, on Repatha MANAGER TRAINING AND DEVELOPMENT - LHC today - cont losartan 25 mg ?? Hypertrophic Cardiomyopathy -Cardiac MRI w/ velocity map: severe concentric hypertrophy with EF 60%, distal portion of LV completely obliterates in systole, no abnormal mitral valve motion or LVOT obstruction, aortic stenosis - Daily Mg - cont MANAGER TRAINING AND DEVELOPMENT Metoprolol tartrate 12.5 mg BID ?? Acute on chronic HFpEF Exacerbation: P/w e/o mild fluid overload consistent with HF exacerbation. Last TTE with EF 60-65% with findings consistent with diastolic dysfunction. BNP in [place] at [facility]. Has been euvolemic [...] - SSI - Lantus 20 U daily (MANAGER TRAINING AND DEVELOPMENT dose is 31) - Aspart 7 U TID ACHS - Hold MANAGER TRAINING AND DEVELOPMENT Metformin - losartan 25 mg as above 1st deg AV delay VTE Prophylaxis Pharmacologic Prophylaxis: Heparin gtt Discharge Plan Home or self care Greer Hooks MD PGY-3 #[id number] 12/08/22 7:22 Associated attestation - Von Walters MD - 12/08/2022 1507 EDT Attending Attestation: I have personally seen and examined Fortunato Hart , discussed the patient's management with the team, and agree with the findings and plan as outlined by Dr. Hooks. In addition, [facility] today revealed RCA stenosis concordant with the perfusion abnormality seen on PET, now s/pPCI. Von Walters MD * Greer Hooks MD - 12/07/2022 9299 EDT Cardiology Progress note Service Date: 12/07/2022 [...] present. Medications Reviewed: Changes notable for holding MANAGER TRAINING AND DEVELOPMENT metoprolol due to long QTc Labs Reviewed: [...] Possible troponin leak 2/2 true type 1 OR vs HCM. -Eliquis taken earlier (12/03) - Telemetry class I - aspirin 81mg daily - Heparin gtt - Nitro 0.4mg SL q5min prn - Hx of statin intolerance, on Repatha MANAGER TRAINING AND DEVELOPMENT - supplemental O2 if needed - NM-PET [...] with EF 60-65%. BNP in ED at [facility] - MANAGER TRAINING AND DEVELOPMENT GDMT ??? Metoprolol tartrate 12.5 mg BID [...] - SSI - Lantus 20 U daily (MANAGER TRAINING AND DEVELOPMENT dose is 31) - Aspart 7 U TID ACHS - Hold MANAGER TRAINING AND DEVELOPMENT Metformin 1st deg AV delay VTE Prophylaxis [...] Walters MD * Elsie Otoole - 12/06/2022 5377 EDT Cardiology Progress note Service Date: 12/06/2022 [...] present. Medications Reviewed: Changes notable for holding MANAGER TRAINING AND DEVELOPMENT metoprolol due to long QTc Labs Reviewed: [...] - Hx of statin intolerance, on Repatha MANAGER TRAINING AND DEVELOPMENT - supplemental O2 if needed - potential [...] with EF 60-65%. BNP in ED at [facility] - MANAGER TRAINING AND DEVELOPMENT GDMT ??? Metoprolol tartrate 12.5 mg BID [...] diet - SSI - Lantus 20 U daily(MANAGER TRAINING AND DEVELOPMENT dose is 31) - Aspart 7 U TID ACHS - Hold MANAGER TRAINING AND DEVELOPMENT Metformin 1st deg AV delay VTE Prophylaxis Pharmacologic Prophylaxis: Heparin gtt Discharge Plan Home or self care Elsie Otoole MD Internal Medicine PGY-1 Pager #[phone] ELSIE OTOOLE 12/06/2022 14:47 Associated attestation - [...] present. Medications Reviewed: Changes notable for holding MANAGER TRAINING AND DEVELOPMENT metoprolol due to long QTc Labs Reviewed: [...] - Hx of statin intolerance, on Repatha MANAGER TRAINING AND DEVELOPMENT - supplemental O2 if needed - potential [...] with EF 60-65%. [place]NP in ED at [facility] - MANAGER TRAINING AND DEVELOPMENT GDMT ??? Metoprolol tartrate 12.5 mg BID [...] diet - SSI - Lantus 20 U daily(MANAGER TRAINING AND DEVELOPMENT dose is 31) - Aspart 7 U TID ACHS - Hold MANAGER TRAINING AND DEVELOPMENT Metformin 1st deg AV delay VTE Prophylaxis Pharmacologic Prophylaxis: Heparin gtt Discharge Plan Home or self care VIKASH GUZMAN MD 12/05/2022 7:43 * Alysia Aguiar [facility] - 12/04/2022 1615 EDT Transitions of Care - Pharmacy Admission Medication Reconciliation Fortunato Hart is a 72 y.o. female admitted on 12/03/2022 for NSTEMI (non-ST elevated myocardial infarction) ([facility] ([facility]) Pharmacist Interventions/Recommendations: 1. MANAGER TRAINING AND DEVELOPMENT med list updated 2. Pharmacy to call [...] 1/4 needle ??? blood glucose meter by [facility] (non-drug; combo route) route daily. One touch verio meter or best covered by insurance. ??? cetirizine (ZYRTEC) 10 mg tablet Take 1 Tablet by mouth daily. ??? Cholecalciferol, Vitamin D3, 10 mcg (400 unit) tablet Take 1 Tablet by mouth daily. ??? cyanocobalamin (VITAMIN B-12) 500 mcg tablet Take 1 Tablet by mouth daily. ??? flash glucose scanning reader (FREESTYLE VICKY 2 READER) [facility] 1 Device by [facility] (non-drug; comboroute) route daily. Dispense one reader [...] ??? lancets/blood glucose strips (ONE TOUCH COMBO [facility]) -to test blood sugar - twice [...] 2 WEEKS ??? UNIFINEmily PENTIPS Preferred Pharmacy: [facility] - [address] ALYSIA AGUIAR RPH * Elsie Otoole [...] present. Medications Reviewed: Changes notable for holding MANAGER TRAINING AND DEVELOPMENT metoprolol due to long QTc Labs Reviewed: [...] - Hx of statin intolerance, on Repatha MANAGER TRAINING AND DEVELOPMENT - supplemental O2 if needed - potential [...] with EF 60-65%. [place]NP in ED [place] [facility] - MANAGER TRAINING AND DEVELOPMENT GDMT ??? Metoprolol tartrate 12.5 mg BID [...] diet - SSI - Lantus 20 U daily(MANAGER TRAINING AND DEVELOPMENT dose is 31) - Aspart 7 U TID ACHS - Hold MANAGER TRAINING AND DEVELOPMENT Metformin VTE Prophylaxis Pharmacologic Prophylaxis: Heparin gtt Discharge Plan Home or self care Elsie Otoole MD Internal Medicine PGY-1 Pager #[phone] ELSIE OTOOLE 12/04/2022 14:32 * Mary Falcon RN - 12/04/2022 0059 EDT 12/04:The following assessment was completed on 12/01 at the [facility]; CM will continue to follow Mary Falcon RN [facility] #[id number] Initial Case Management/Social Work Assessment and Discharge Plan/Readmission Risk Assessment ?? REASON FOR ADMISSION: Acute heart failure, unspecified heart failure type (HCC- CMS) ([facility]) Patient understands reason for admission: Yes ?? PATIENT INFO VERIFIED: PCP Type of housing (single family, condo, apartment, [place] [facility], single room occupancy, [facility] funded hotel room, group assisted) - Home Who does the patient live with? Does the patient have access to their own bedroom/bathroom/kitchen - or is it shared with others? Yes Name of housing complex (ex [employer], [facility], etc)- n/a Housing Authority/Managing Organization - n/a Community Care Providers (immigration case manager, [facility] nurse, etc) name and contact information- n/a [...] Yes, new copy in paper chart @ [facility] Information Provided on Healthcare Directives: No Information on Healthcare Directives Requested: No DIRECTIVES FOR FINANCES: Directive For Finances: No ?? TRANSPORTATION: Transportation: Family Transportation Additional Details: vs. ambulance to [facility] Final Discharge Destination: Home Patient expects to be discharged to: Home ?? CULTURAL, RELIGION and/or LANGUAGE factors affecting health care/discharge planning: [...] Home Health Services: None DME Provider: Pharmacy: [facility] - [address] [address] ?? [id number] - [address] [place] [id number] ?? Home Health: Other: ?? POST HOSPITAL TRANSITION PLAN: Patients PCP, pharmacy and demographics verified. Patient lives withher in a one story house with one step to enter. Patient has an advanced directive on file listing her as medical agent. Patient utilizes a walker and no other DME's. Patient is expected to transfer to [facility] today for a heart cath. CM to follow. ?? CHARITO MOCK 12/02/2022 9:57 documented in this encounter H&P Notes * Randy Sebastian MD - 12/03/2022 7106 EDT STAFF ATTESTATION: I, Randy Sebastian MD, [...] Disease presenting as a direct transfer from [facility] [place] she presented on 12/01 due to shortness of breath, and chest tightness that woke her up from her sleep 3- 4 days prior. Otherwise has been doing well, no recent GIB no melanotic stools since her discharge last month. Per [facility] note: She presented to [...] peaked at 0.11. Cardiology recommended transfer to [facility] for cardiac catheterization. She was not started [...] noted in HPI. Prior Cardiac History: 11/20 [facility] cardi[place] clinic event monitor [...] VICKY 2 READER) misc 1 Device by [facility] (non-drug; comboroute) route daily. Dispense one reader [...] ??? lancets/blood glucose strips (ONE TOUCH COMBO [facility]) -to test blood sugar - twice [...] ??? Propoxyphene N-Acetaminophen Other reaction(s): Hallucinations ??? Qjmjsyh-Zdv-Two Reductase Inhibitors ??? Trulicity [Dulaglutide] Gi Side [...] Disease presenting as a direct transfer from [facility] fpr NSTEMI. Plan N-STEMI: HLD HTN symptomatic,troponin peaked at .130 on 12/01, initially down-trended than began to uptrend from .97 to peak of .112 on 12/02 -Eliquis taken earlier today (12/03) - Telemetry class I - repeat troponin - aspirin 81mg daily - Heparin gtt - Nitro 0.4mg SL q5min prn - Hx of statin intolerance - on Repatha MANAGER TRAINING AND DEVELOPMENT - supplemental O2 if needed - potential [facility] Wednesday - NPO at midnight Wednesday - NPO now for potential stress test - ordered lipid profile HYpertrophic Cardiomyopathy -Cardiac MRI w/ velocity map ordered -Hold BB due to prolonged Qt -Daily Mg Acute on chronic HFpEF Exacerbation: P/w e/o mild fluid overload consistent with HF exacerbation. Last TTE with EF 60-65%. BNP in ED at [facility] - MANAGER TRAINING AND DEVELOPMENT GDMT ??? Hold Metoprolol due to prolonged [...] diet - SSI - Lantus 20 U daily(MANAGER TRAINING AND DEVELOPMENT dose is 31) - Aspart 7 U TID ACHS - Hold MANAGER TRAINING AND DEVELOPMENT Metformin Code status: Full Code Diet: DIET HEART HEALTHY DIET NPO AFTER MIDNIGHT- Wednesday VTE Prophylaxis: Hep gtt, hold MANAGER TRAINING AND DEVELOPMENT apixaban Consults: None Discharge: Unclear, pending resolution of above Darion Tinajero MD PGY-2 Internal Medicine Epic secure chat, #[id number] 12/03/22 22:46 documented in this encounter Procedure Notes * Edgardo Ha MD - 12/08/2022 1600 EDT Dear Bryant Crain Fortunato Hart underwent cardiac catheterization at [facility] on 12/08/2022. She had presented with some [...] artery Procedure: She was brought to [facility] for the procedure: Diagnostic [...] well. Post Procedure Follow Up: John Ha DIVISION OFF[employer]ER [employer]ONS DEPARTMENT at [facility] cards Post Interventional Conclusion/Physician Disposition: (check one main category) Inpatient procedure, continue inpatient status (no procedural complication required) Edgardo Ha MD PagerNumber: 12/08/2022 16:00 documented in this encounter Miscellaneous Notes * Plan of Care - Tiffanie Fernandez, JALEN - 12/09/2022 6123 EDT D: Pt s/p LHC w/ 1 [...] Care - Mikal Murphy RN - 12/08/2022 6680 EDT Data: Assumed care at 1900. Pt [...] 12/08/2022 1825 EDT Data: Patient NPO for [facility] this morning. VS stable and patient [...] previous allergic reaction to contrast. Patient to rd lab technician with RN and Si TVk at ____. Response: Patient returned to [place] [address] at 1620 with 1 MADONNA to RCA. [...] rate. Call woods within reach. Plan for [facility] today. Mikal Murphy 12/08/22 Problem: Daily [...] drip doac. Patient first degree rythem. 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 Action: patient telemetry [...] heparin drip doac. Patient afib rythem. 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 Action: patient telemetry [...] Failure Nurse Clinician Secure Chat or pager #[phone] * Plan of Care - Teresa Silverman RN - 12/04/2022 0144 EDT Problem: Daily Care Plan Goals Goal: Care Plan Documentation Outcome: Ongoing Data: [place] [facility] [place]. Dx NSTEMI. A/Ox3. Ind in the room. VSS - BP elevated at times. Tele SR with 1st deg HB, BBB, and freq PVC's. Denies CP at this time. Action: Ctm tele, VS. Response: Pt resting at this time. Plan for cardiac MRI later today. Possible NM stress test. Tentative [facility] for Wednesday. TERESA SILVERMAN RN 12/04/2022 [...] of GIB with recent admission to the [facility] in 11/10, CVA, 2DM, PD who presents asa [place] [facility] with elevated troponin and [...] of breath. The patient had presented to [facility], there troponins were persistently positive and adynamic. BNP elevated to 3200. She received a single dose of IV Lasix. Patient was maintained on her home Eliquis and did not receive aspirin loading while at [facility]. Last dose 12/03 pm With regards to her recent history of GI bleed the patient had initially presented to [facility] with 1 week of melanotic stools and 2 syncopal episodes. She developed acute hematemesis while there requiring significant transfusion and FFP administration, she was then transferred to [facility]. EGD performed showed duodenal erosion, scattered petechiae in the stomach and no active bleeding. She was maintained on bid PPI and did not have recurrent bleeding or instability. In this context the patient hada significantly elevated troponin to 34.7 peak which decreased to 32 on next check. She was subsequently restarted on eliquis on 11/23. Patient had stable Hgbs at [facility] and no evident bleeding. Per RAHEEM Ha's note on 11/20 [facility] [place] event monitor worn 10/13/2022-11/12/2022 which showed both AVB type I as well as periods of 2-1 blockwith HR 28-30 bpm, one pause lasting 3 seconds, AF burden <1%, and 5 nonsustained runs of ventricular tachycardia. 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 as well as 2 documented [...] 03/08/2024 9:30 EDT Ancillary Procedure [facility] Cardiology - [place] [address] 03/08/2024 10:15 EDT Ancillary Procedure [facility] Cardiology [place] [address] 04/05/2024 10:00 EDT Ancillary Procedure [facility] [address] [place] [id number] 04/05/2024 10:00 EDT Office Visit [facility] [address] [place] [address] Carlos Ha NP [address] [place] [address] [address] [place] [id number] Scheduled Orders Name Type Priority Associated Diagnoses Orde r Schedule EKG 12-LEAD ECG STAT One Time for 1 Occurrences starting 12/08/2022 until 12/08/2022 Scheduled Referrals Name Type Priority Associated Diagnoses Order Schedule AMB CONS/FOLLOW UP CARDIOLOGY Outpatient Referral Routine/Next Available NSTEMI (non-ST elevated myocardial infarction) ([facility]) Expected: 12/22/2022 (Approximate), Expires: 12/09/2023 AMB CONS/FOLLOW UP PRIMARY CARE PHYSICIAN - EXTERNAL Outpatient Referral Routine/Next Available NSTEMI (non-ST elevated myocardial infarction) ([facility]) Expected: 12/15/2022 (Approximate), Expires: 12/09/2023 PROVIDER FOLLOW-UP INSTRUCTIONS Outpatient Referral Routine Ordered: 12/08/2022 AMB CONS/FOLLOW UP CARDIAC REHABILITATION Outpatient Referral Routine/Next Available NSTEMI (non-ST elevated myocardial infarction) ([facility]) Expected: 12/16/2022 (Approximate), Expires: 12/09/2023 documented as [...] EDT) 12/26/2022 18:2 2 EDT Scan 2 Distribution Sales Manager PROCEDURE/MINOR CROW GICAL ORDERABLES * ECG REPORT - SCANNED (12/24/2022 9:21 EDT) 12/24/2022 9:21 EDT Scan 2 Distribution Sales Manager PROCEDURE/MINOR CROW GICAL ORDERABLES * ECG REPORT - SCANNED (12/11/2022 10:17 EDT) 12/11/2022 10:1 7 EDT Scan 2 Distribution Sales Manager PROCEDURE/MINOR CROW GICAL ORDERABLES * IMPLANT RECORD - SCANNED (12/11/2022 10:16 EDT) 12/11/2022 10:1 6 EDT Scan 2 Distribution Sales Manager PROCEDURE/MINOR CROW GICAL ORDERABLES * ECG REPORT - SCANNED (12/10/2022 19:54 EDT) 12/10/2022 19:5 4 EDT Scan 2 Distribution Sales Manager PROCEDURE/MINOR CROW GICAL ORDERABLES * (ABNORMAL) POCT GLUCOSE, INTERFACED (12/09/2022 12:07 EDT) Glucose, POC 204(H) 70 - 100 mg/dL 12/09/2022 12:08 EDT [facility] HN LAB POC COMMENT (GLUCOSE) Test Performed by Nursing Services 12/09/2022 12:08 EDT [facility] Blood CAPILLARY BLOOD / Unknown 12/09/2022 12:07 EDT 12/09/2022 12:08 EDT Darion Tinajero MD POINT OF CARE TEST O RDERABLES Performing Organization Address City/[facility]/ZIP Co de Phone Number [facility] [address] [place] [address] * (ABNORMAL) POCT GLUCOSE, INTERFACED (12/09/2022 7:04 EDT) Glucose, POC 227(H) 70 - 100 mg/dL 12/09/2022 7:06 EDT [facility] HN LAB POC COMMENT (GLUCOSE) Test Performed by Nursing Services 12/09/2022 7:06 EDT [facility] Blood CAPILLARY BLOOD / Unknown 12/09/2022 7:04 EDT 12/09/2022 7:06 EDT Darion Tinajero MD POINT OF CARE TEST O RDERABLES [facility] [address] [place] [address] * MAGNESIUM (12/09/2022 6:32 EDT) Magnesium 2.2 1.7 - 2.8 mg/dL 12/09/2022 7:30 EDT [facility] Blood VENOUS BLOOD / Unknown Venipuncture / Unknown 12/09/2022 6:32 EDT 12/09/2022 7:00 EDT Vikash Guzman MD CHEMISTRY & BLOOD GA S ORDERABLES [facility] [address] [place] [address] * (ABNORMAL) BASIC METABOLIC PANEL (BMP) (12/09/2022 6:32 EDT) Pathologist [facility] Sodium 138 136 - 145 mmol/L 12/09/2022 7:30 EDT [facility] Potassium 4.3 3.5 - 5.0 mmol/L 12/09/2022 7:30 [facility] Chloride 107 96 - 110 mmol/L 12/09/2022 7:30 T [facility] CO2 Total 19(L) 22 - 32 mmol/L 12/09/2022 7:30 [facility] Anion Gap 12 5 - 14 mmol/L 12/09/2022 7:30 [facility] Glucose 211(H) 70 - 100 mg/dl 12/09/2022 7:30 [facility] Calcium 10.5 8.5 - 10.5 mg/dL 12/09/2022 7:30 [facility] BUN 15 10 - 26 mg/dL 12/09/2022 7:30 [facility] Creatinine 0.95 0.52 - 1.04 mg/dL 12/09/2022 7:30 [facility] eGFR 64 >60 mL/min/1.73 m2 12/09/2022 7:30 T [facility] Blood VENOUS BLOOD / Unknown Venipuncture / Unknown 12/09/2022 6:32 EDT 12/09/2022 7:00 EDT Darion Tinajero MD CHEMISTRY & BLOOD GA S ORDERABLES Performing Organization Address City/State/[facility] Co de Phone Number [facility] [address] [place] [address] * (ABNORMAL) COMPLETE BLOOD COUNT (12/09/2022 6:31 EDT) WBC 7.64 4.00 - 12.40 K/cmm 12/09/2022 6:57 EDT [facility] RBC 3.47(L) 3.86 - 5.04 M/cmm 12/09/2022 6:57 EDT [facility] Hemoglobin 9.1(L) 11.6 - 15.2 g/dL 12/09/2022 6:57 EDT [facility] HCT 28.1(L) 34.9 - 44.4 % 12/09/2022 6:57 EDT [facility] MCV 81 81 - 98 fL 12/09/2022 6:57 EDT [facility] MCH 26.2(L) 26.7 - 33.3 pg 12/09/2022 6:57 EDT [facility] MCHC 32.4 32.1 - 35.9 g/dL 12/09/2022 6:57 EDT [facility] RDW-CV 15.1(H) <14.7 % 12/09/2022 6:57 EDT [facility] RDW-SD 44.0 <50.4 fl 12/09/2022 6:57 EDT [facility] PLT 470(H) 141 - 377 K/cmm 12/09/2022 6:57 EDT [facility] MPV 10.3 9.5 - 12.7 fL 12/09/2022 6:57 EDT [facility] Blood VENOUS BLOOD / Unknown Venipuncture / Unknown 12/09/2022 6:31 EDT 12/09/2022 6:51 EDT Darion Tinajero MD HEMATOLOGY & PF4 ORD ERABLES [facility] [address] [place] [address] * (ABNORMAL) POCT GLUCOSE, INTERFACED (12/09/2022 4:22 EDT) Glucose, POC 260(H) 70 - 100 mg/dL 12/09/2022 4:24 EDT [facility] HN LAB POC COMMENT (GLUCOSE) Test Performed by Nursing Services 12/09/2022 4:24 EDT [facility] Blood CAPILLARY BLOOD / Unknown 12/09/2022 4:22 EDT 12/09/2022 4:24 EDT Von Walters MD POINT OF CARE TEST ORDERABLES Performing Organization Address City/[facility]/ZIP Co de Phone Number [facility] [address] [place] [address] * (ABNORMAL) POCT GLUCOSE, INTERFACED (12/08/2022 23:55 EDT) Glucose, POC 375(H) 70 - 100 mg/dL 12/08/2022 23:56 EDT [facility] HN LAB POC COMMENT (GLUCOSE) Test Performed by Nursing Services 12/08/2022 23:56 EDT [facility] Blood CAPILLARY BLOOD / Unknown 12/08/2022 23:55 EDT 12/08/2022 23:56 EDT Von Walters MD POINT OF CARE TEST ORDERABLES [facility] [address] [place] [address] * (ABNORMAL) POCT GLUCOSE, INTERFACED (12/08/2022 21:17 EDT) Glucose, POC 390(H) 70 - 100 mg/dL 12/08/2022 21:19 EDT [facility] HN LAB POC COMMENT (GLUCOSE) Test Performed by Nursing Services 12/08/2022 21:19 EDT [facility] Blood CAPILLARY BLOOD / Unknown 12/08/2022 21:17 EDT 12/08/2022 21:19 EDT Darion Tinajero MD POINT OF CARE TEST O RDERABLES [facility] [address] [place] [address] * EKG 12-LEAD (12/08/2022 18:48 EDT) 12/08/2022 18:4 8 EDT Narrative [facility] - 12/10/2022 13:41 EDT ? The ? Test Date: ?2022-12-08 Pat Name: ? FORTUNATO TANNER ?Department: ?? [facility] ? Room: ? [id number] Gender: ? Female ? Testing Specialist: ?? [id number] : ?1950 ? Requested By: KRISTI RODRIGUEZ Order Number: [id number] ? Oleksandr HAY: ?? RANDY SEBASTIAN MD ? Measurements Intervals ?[place] ? Rate: ? 75 ? P: ? [...] Note Randy Sebastian MD - 12/10/2022 The Test Date: 2022-12-08 Pat Name: FORTUNATO HART Department: [place] [facility] Room: [id number] Gender: Female Testing Specialist: [id number] : 1950 Requested By: KRISTI ADAN Order Number: [id number] Reading MD: RANDY SEBASTIAN MD Measurements Intervals [place] Rate: 75 P: [place]: 0 QRS: -21 [...] Von Walters MD CARDIAC ECG O RDERABLES [facility] * (ABNORMAL) POCT GLUCOSE, INTERFACED (12/08/2022 16:44 EDT) Glucose, POC 139(H) 70 - 100 mg/dL 12/08/2022 16:46 EDT [facility] HN LAB POC COMMENT (GLUCOSE) Test Performed by Nursing Services 12/08/2022 16:46 EDT [facility] Blood CAPILLARY BLOOD / Unknown 12/08/2022 16:44 EDT 12/08/2022 16:46 EDT Darion Tinajero MD POINT OF CARE TEST O RDERABLES Performing Organization Address City/[facility]/ZIP Co de Phone Number [facility] [address] [place] [address] * OCT (12/08/2022 15:47 EDT) Anatomical Region Laterality Modality Fast Food Services Manager Narrative 12/08/2022 15:47 EDT Refer to the primary case's report for the procedure summary. Elsie Otoole CARDIAC CATH ORDERAB LES * LEFT HEART CATH, PERCUTANEOUS CORONARY INTERVENTION (12/08/2022 15:47 EDT) Anatomical Region Laterality Modality Fast Food Services Manager 12/08/2022 14:1 6 EDT Narrative 12/12/2022 10:05 EDT Cardiology [address] [place] [address] Catheterization Laboratory Study Patient: Fortunato Hart M ? Study Date: ?12/08/2022 ?Accession #: ? [id number] : ? 1950 Referring: Elsie Otoole Diagnostic [...] Chest pain. Dyspnea. Nonsustained ventricular ?? tachycardia. Woe-KW-uppaljpf myocardial infarction. Aortic stenosis. ?? Cerebrovascular disease. [...] HISTORY: Chest pain. ??Dyspnea. ??Nonsustained ventricular tachycardia. Dbm-LP-ijoxztpn myocardial infarction. ??Aortic stenosis. Cerebrovascular disease. ??PMH: [...] 4. Right radial artery access. A 6FR/.021 [place] Sheath Slender sheath ?? was advanced into [...] Note Edgardo Ha MD - 12/12/[address] [place] [address] Catheterization Laboratory Study Patient: Fortunato Hart M [...] indications: Chest pain. Dyspnea. Nonsustained ventricular tachycardia. Qrv-HT-bedaekpo myocardial infarction. Aortic stenosis. Cerebrovascular disease. 2. [...] HISTORY: Chest pain. Dyspnea. Nonsustained ventricular tachycardia. Doi-KQ-ycatujmk myocardial infarction. Aortic stenosis. Cerebrovascular disease. PMH: [...] 4. Right radial artery access. A 6FR/.021 [place] Sheath Slender sheath was advanced into the [...] (12/08/2022 13:01 EDT) 12/08/2022 13:0 1 EDT [facility] EKG - 12/26/2022 14:49 EDT ? The ? Test Date: ?2022-12-08 Pat Name: ? FORTUNATO TANNER ?Department: ?? [place] [address] ? Room: ? CL Gender: ? Female ? Testing Specialist: ?? [id number] : ?1950 ? Requested By: DELL LOPEZ [facility] Number: [id number] ? Oleksandr MD: ?? REILLY DUQUE MD PhD ? Measurements Intervals ?[place] ? Rate: ? 49 ? P: ? [...] Reilly Duque MD PhD - 12/26/2022 The Test Date: 2022-12-08 Pat Name: FORTUNATO HART Department: [place] [address] Room: Gender: Female Testing Specialist: [id number] : 1950 Requested By: DELL BEAR Order Number: [id number] [place] MD: REILLY DUQUE [facility] Measurements Intervals [place] Rate: 49 P: [place]: 0 QRS: 84 [...] PhD. Eddie Damon CARDIAC ECG ORDERAB LES [facility] EKG * (ABNORMAL) POCT GLUCOSE, INTERFACED (12/08/2022 12:21 EDT) Glucose, POC 132(H) 70 - 100 mg/dL 12/08/2022 12:23 EDT [facility] HN LAB POC COMMENT (GLUCOSE) Test Performed by Nursing Services 12/08/2022 12:23 EDT [facility] Blood CAPILLARY BLOOD / Unknown 12/08/2022 12:21 EDT 12/08/2022 12:22 EDT Darion Tinajero MD POINT OF CARE TEST O RDERABLES Performing Organization Address [facility] Co de Phone Number [facility] [address] [place] [address] * ECG REPORT - SCANNED (12/08/2022 12:18 EDT) 12/08/2022 12:1 8 EDT Scan 2 Distribution Sales Manager PROCEDURE/MINOR CROW GICAL ORDERABLES * HEPARIN LEVEL - UNFRACTIONATED HEPARIN (12/08/2022 6:02 EDT) Heparin Level-UFH 0.56 Therapeutic Range: 0.30 - 0.70 IU/mL 12/08/2022 6:41 EDT [facility] Comment:Unfractionated hepar in therapeutic [...] PF4 ORD ERABLES Performing Organization Address [facility]/ZIP Co de Phone Number [facility] [address] [place] [address] * MAGNESIUM (12/08/2022 6:02 EDT) Magnesium 2.0 1.7 - 2.8 mg/dL 12/08/2022 7:10 EDT [facility] Blood VENOUS BLOOD / Unknown Venipuncture / Unknown 12/08/2022 6:02 EDT 12/08/2022 6:40 EDT Vikash Guzman MD CHEMISTRY & BLOOD GA S ORDERABLES [facility] [address] [place] [address] * (ABNORMAL) BASIC METABOLIC PANEL (BMP) (12/08/2022 6:02 EDT) Sodium 139 136 - 145 mmol/L 12/08/2022 7:10 [facility] Potassium 4.2 3.5 - 5.0 mmol/L 12/08/2022 7:10 [facility] Chloride 107 96 - 110 mmol/L 12/08/2022 7:10 [facility] CO2 Total 20(L) 22 - 32 mmol/L 12/08/2022 7:10 [facility] Anion Gap 12 5 - 14 mmol/L 12/08/2022 7:10 [facility] Glucose 188(H) 70 - 100 mg/dl 12/08/2022 7:10 [facility] Calcium 10.4 8.5 - 10.5 mg/dL 12/08/2022 7:10 [facility] BUN 14 10 - 26 mg/dL 12/08/2022 7:10 [facility] Creatinine 0.96 0.52 - 1.04 mg/dL 12/08/2022 7:10 [facility] eGFR 64 >60 mL/min/1.73 m2 12/08/2022 7:10 [facility] Blood VENOUS BLOOD / Unknown Venipuncture / Unknown 12/08/2022 6:02 EDT 12/08/2022 6:40 EDT Darion Tinajero MD CHEMISTRY & BLOOD GA S ORDERABLES Performing Organization Address City/[facility]/ZIP Co de Phone Number [facility] [address] [place] [address] * (ABNORMAL) COMPLETE BLOOD COUNT (12/08/2022 6:02 EDT) WBC 6.56 4.00 - 12.40 K/cmm 12/08/2022 6:31 [facility] RBC 3.80(L) 3.86 - 5.04 M/cmm 12/08/2022 6:31 [facility] Hemoglobin 9.9(L) 11.6 - 15.2 g/dL 12/08/2022 6:31 [facility] HCT 31.4(L) 34.9 - 44.4 % 12/08/2022 6:31 [facility] MCV 83 81 - 98 fL 12/08/2022 6:31 [facility] MCH 26.1(L) 26.7 - 33.3 pg 12/08/2022 6:31 [facility] MCHC 31.5(L) 32.1 - 35.9 g/dL 12/08/2022 6:31 [facility] RDW-CV 15.3(H) <14.7 % 12/08/2022 6:31 [facility] RDW-SD 45.6 <50.4 fl 12/08/2022 6:31 [facility] PLT 431(H) 141 - 377 K/cmm 12/08/2022 6:31 [facility] MPV 10.4 9.5 - 12.7 fL 12/08/2022 6:31 [facility] Blood VENOUS BLOOD / Unknown Venipuncture / Unknown 12/08/2022 6:02 EDT 12/08/2022 6:19 EDT Darion Tinajero MD HEMATOLOGY & PF4 ORD ERABLES [facility] [address] [place] [address] * (ABNORMAL) POCT GLUCOSE, INTERFACED (12/08/2022 6:00 EDT) Glucose, POC 193(H) 70 - 100 mg/dL 12/08/2022 6:01 EDT [facility] HN LAB POC COMMENT (GLUCOSE) Test Performed by Nursing Services 12/08/2022 6:01 EDT [facility] Blood CAPILLARY BLOOD / Unknown 12/08/2022 6:00 EDT 12/08/2022 6:01 EDT Darion Tinajero MD POINT OF CARE TEST O RDERABLES Performing Organization Address [facility] Co de Phone Number [facility] [address] [place] [address] * (ABNORMAL) POCT GLUCOSE, INTERFACED (12/08/2022 0:26 EDT) Glucose, POC 173(H) 70 - 100 mg/dL 12/08/2022 0:27 EDT [facility] HN LAB POC COMMENT (GLUCOSE) Test Performed by Nursing Services 12/08/2022 0:27 EDT [facility] Blood CAPILLARY BLOOD / Unknown 12/08/2022 0:26 EDT 12/08/2022 0:27 EDT Darion Tinajero MD POINT OF CARE TEST O RDERABLES Performing Organization Address [facility] Co de Phone Number [facility] [address] [place] [address] * (ABNORMAL) POCT GLUCOSE, INTERFACED (12/07/2022 21:11 EDT) Glucose, POC 152(H) 70 - 100 mg/dL 12/07/2022 21:12 EDT [facility] HN LAB POC COMMENT (GLUCOSE) Test Performed by Nursing Services 12/07/2022 21:12 EDT [facility] Blood CAPILLARY BLOOD / Unknown 12/07/2022 21:11 EDT 12/07/2022 21:12 EDT Von Walters MD POINT OF CARE TEST ORDERABLES Performing Organization Address City/[facility]/ZIP Co de Phone Number [facility] [address] [place] [address] * (ABNORMAL) POCT GLUCOSE, INTERFACED (12/07/2022 16:32 EDT) Glucose, POC 123(H) 70 - 100 mg/dL 12/07/2022 16:33 EDT [facility] HN LAB POC COMMENT (GLUCOSE) Test Performed by Nursing Services 12/07/2022 16:33 EDT [facility] Blood CAPILLARY BLOOD / Unknown 12/07/2022 16:32 EDT 12/07/2022 16:33 EDT Darion Tinajero MD POINT OF CARE TEST O RDERABLES Performing Organization Address City/[facility]/ZIP Co de Phone Number [facility] [address] [place] [address] * NM CARD PET PHARM MULT STUDIES [...] Disease presenting [place] [facility] [place] N[place]I. Today for [...] CT finding(s): small pericardial effusion. Myocardial Flow [place] The myocardial flow reserve was 1.89 for [...] using independent software and evaluated by the radiologist/graduate teaching associate. Images acquired at rest and post stress [...] 70 - 100 mg/dL 12/07/2022 13:21 EDT [facility] HN LAB POC COMMENT (GLUCOSE) Test Performed by Nursing Services 12/07/2022 13:21 EDT [facility] Blood CAPILLARY BLOOD / Unknown 12/07/2022 13:19 EDT 12/07/2022 13:21 EDT Darion Tinajero MD POINT OF CARE TEST O RDERABLES [facility] [address] [place] [address] * HEPARIN LEVEL - UNFRACTIONATED HEPARIN (12/07/2022 6:41 EDT) [facility] Heparin Level-UFH 0.65 Therapeutic Range: 0.30 - 0.70 IU/mL 12/07/2022 7:10 EDT [facility] Comment:Unfractionated hepar in therapeutic [...] Elsie Otoole HEMATOLOGY & PF4 ORD ERABLES [facility] [address] [place] [address] * MAGNESIUM (12/07/2022 6:41 EDT) Magnesium 1.9 1.7 - 2.8 mg/dL 12/07/2022 7:24 EDT [facility] Blood VENOUS BLOOD / Unknown Venipuncture / Unknown 12/07/2022 6:41 EDT 12/07/2022 6:55 EDT Vikash Guzman MD CHEMISTRY & BLOOD GA S ORDERABLES Performing Organization Address City/[facility] Co de Phone Number [facility] [address] [place] [address] * (ABNORMAL) BASIC METABOLIC PANEL (BMP) (12/07/2022 6:41 EDT) Sodium 137 136 - 145 mmol/L 12/07/2022 7:24 EDT [facility] Potassium 4.0 3.5 - 5.0 mmol/L 12/07/2022 7:24 [facility] Chloride 109 96 - 110 mmol/L 12/07/2022 7:24 [facility] CO2 Total 20(L) 22 - 32 mmol/L 12/07/2022 7:24 [facility] Anion Gap 8 5 - 14 mmol/L 12/07/2022 7:24 [facility] Glucose 167(H) 70 - 100 mg/dl 12/07/2022 7:24 [facility] Calcium 10.1 8.5 - 10.5 mg/dL 12/07/2022 7:24 [facility] BUN 14 10 - 26 mg/dL 12/07/2022 7:24 [facility] Creatinine 0.94 0.52 - 1.04 mg/dL 12/07/2022 7:24 [facility] eGFR 65 >60 mL/min/1.73 m2 12/07/2022 7:24 [facility] Blood VENOUS BLOOD / Unknown Venipuncture / Unknown 12/07/2022 6:41 EDT 12/07/2022 6:55 EDT Darion Tinajero MD CHEMISTRY & BLOOD GA S ORDERABLES [facility] [address] [place] [address] * (ABNORMAL) COMPLETE BLOOD COUNT (12/07/2022 6:41 EDT) WBC 7.35 4.00 - 12.40 K/cmm 12/07/2022 7:03 EDT [facility] RBC 3.43(L) 3.86 - 5.04 M/cmm 12/07/2022 7:03 [facility] Hemoglobin 9.1(L) 11.6 - 15.2 g/dL 12/07/2022 7:03 [facility] HCT 28.4(L) 34.9 - 44.4 % 12/07/2022 7:03 [facility] MCV 83 81 - 98 fL 12/07/2022 7:03 [facility] MCH 26.5(L) 26.7 - 33.3 pg 12/07/2022 7:03 [facility] MCHC 32.0(L) 32.1 - 35.9 g/dL 12/07/2022 7:03 [facility] RDW-CV 15.1(H) <14.7 % 12/07/2022 7:03 [facility] RDW-SD 44.7 <50.4 fl 12/07/2022 7:03 [facility] PLT 401(H) 141 - 377 K/cmm 12/07/2022 7:03 [facility] MPV 10.0 9.5 - 12.7 fL 12/07/2022 7:03 [facility] Blood VENOUS BLOOD / Unknown Venipuncture / Unknown 12/07/2022 6:41 EDT 12/07/2022 6:54 EDT Darion Tinajero MD HEMATOLOGY & PF4 ORD ERABLES Performing Organization Address City/[facility]/ZIP Co de Phone Number [facility] [address] [place] [address] * (ABNORMAL) POCT GLUCOSE, INTERFACED (12/07/2022 6:09 EDT) Glucose, POC 167(H) 70 - 100 mg/dL 12/07/2022 6:12 EDT [facility] HN LAB POC COMMENT (GLUCOSE) Test Performed by Nursing Services 12/07/2022 6:12 EDT [facility] Blood CAPILLARY BLOOD / Unknown 12/07/2022 6:09 EDT 12/07/2022 6:12 EDT Darion Tinajero MD POINT OF CARE TEST O RDERABLES Performing Organization Address [facility] Co de Phone Number [facility] [address] [place] [address] * (ABNORMAL) POCT GLUCOSE, INTERFACED (12/06/2022 21:14 EDT) Glucose, POC 183(H) 70 - 100 mg/dL 12/06/2022 21:15 EDT [facility] HN LAB POC COMMENT (GLUCOSE) Test Performed by Nursing Services 12/06/2022 21:15 EDT [facility] Blood CAPILLARY BLOOD / Unknown 12/06/2022 21:14 EDT 12/06/2022 21:15 EDT Darion Tinajero MD POINT OF CARE TEST O RDERABLES [facility] [address] [place] [address] * (ABNORMAL) POCT GLUCOSE, INTERFACED (12/06/2022 16:36 EDT) Glucose, POC 172(H) 70 - 100 mg/dL 12/06/2022 16:37 EDT [facility] HN LAB POC COMMENT (GLUCOSE) Test Performed by Nursing Services 12/06/2022 16:37 EDT [facility] Blood CAPILLARY BLOOD / Unknown 12/06/2022 16:36 EDT 12/06/2022 16:37 EDT Darion Tinajero MD POINT OF CARE TEST O RDERABLES Performing Organization Address [facility] Co de Phone Number [facility] [address] [place] [address] * (ABNORMAL) POCT GLUCOSE, INTERFACED (12/06/2022 13:26 EDT) Glucose, POC 163(H) 70 - 100 mg/dL 12/06/2022 13:29 EDT [facility] HN LAB POC COMMENT (GLUCOSE) Test Performed by Nursing Services 12/06/2022 13:29 EDT [facility] Blood CAPILLARY BLOOD / Unknown 12/06/2022 13:26 EDT 12/06/2022 13:29 EDT Randy Sebastian MD POINT OF CARE TEST O RDERABLES Performing Organization Address [facility] Co de Phone Number [facility] [address] [place] [address] * (ABNORMAL) POCT GLUCOSE, INTERFACED (12/06/2022 12:17 EDT) Glucose, POC 160(H) 70 - 100 mg/dL 12/06/2022 12:19 EDT [facility] HN LAB POC COMMENT (GLUCOSE) Test Performed by Nursing Services 12/06/2022 12:19 EDT [facility] Blood CAPILLARY BLOOD / Unknown 12/06/2022 12:17 EDT 12/06/2022 12:18 EDT Darion Tinajero MD POINT OF CARE TEST O RDERABLES Performing Organization Address City/[facility]/ZIP Co de Phone Number [facility] [address] [place] [address] * HEPARIN LEVEL - UNFRACTIONATED HEPARIN (12/06/2022 12:09 EDT) Heparin Level-UFH 0.70 Therapeutic Range: 0.30 - 0.70 IU/mL 12/06/2022 12:37 EDT [facility] Comment:Unfractionated hepar in therapeutic [...] & PF4 ORD ERABLES Performing Organization Address City/[facility]/ZIP Co de Phone Number [facility] [address] [place] [address] * (ABNORMAL) POCT GLUCOSE, INTERFACED (12/06/2022 9:16 EDT) Glucose, POC 180(H) 70 - 100 mg/dL 12/06/2022 9:17 EDT [facility] HN LAB POC COMMENT (GLUCOSE) Test Performed by Nursing Services 12/06/2022 9:17 EDT [facility] Blood CAPILLARY BLOOD / Unknown 12/06/2022 9:16 EDT 12/06/2022 9:17 EDT Darion Tinajero MD POINT OF CARE TEST O RDERABLES Performing Organization Address City/[facility]/ZIP Co de Phone Number [facility] [address] [place] [address] * (ABNORMAL) POCT GLUCOSE, INTERFACED (12/06/2022 8:12 EDT) [facility] Signature Glucose, POC 179(H) 70 - 100 mg/dL 12/06/2022 8:19 EDT [facility] HN LAB POC COMMENT (GLUCOSE) Test Performed by Nursing Services 12/06/2022 8:19 EDT [facility] Blood CAPILLARY BLOOD / Unknown 12/06/2022 8:12 EDT 12/06/2022 8:19 EDT Darion Tinajero MD POINT OF CARE TEST O RDERABLES Performing Organization Address City/[facility] Co de Phone Number [facility] [address] [place] [address] * MAGNESIUM (12/06/2022 6:28 EDT) Magnesium 2.0 1.7 - 2.8 mg/dL 12/06/2022 7:51 EDT [facility] Blood VENOUS BLOOD / Unknown Venipuncture / Unknown 12/06/2022 6:28 EDT 12/06/2022 7:18 EDT Vikash Guzman MD CHEMISTRY & BLOOD GA S ORDERABLES Performing Organization Address [facility] de Phone Number [facility] [address] [place] [address] * (ABNORMAL) BASIC METABOLIC PANEL (BMP) (12/06/2022 6:28 EDT) Sodium 139 136 - 145 mmol/L 12/06/2022 7:51 EDT [facility] Potassium 3.8 3.5 - 5.0 mmol/L 12/06/2022 7:51 EDT [facility] Chloride 108 96 - 110 mmol/L 12/06/2022 7:51 T [facility] CO2 Total 20(L) 22 - 32 mmol/L 12/06/2022 7:51 T [facility] Anion Gap 11 5 - 14 mmol/L 12/06/2022 7:51 EDT [facility] Glucose 177(H) 70 - 100 mg/dl 12/06/2022 7:51 EDT [facility] Calcium 9.9 8.5 - 10.5 mg/dL 12/06/2022 7:51 T [facility] BUN 15 10 - 26 mg/dL 12/06/2022 7:51 [facility] Creatinine 0.89 0.52 - 1.04 mg/dL 12/06/2022 7:51 [facility] eGFR 70 >60 mL/min/1.73 m2 12/06/2022 7:51 [facility] Blood VENOUS BLOOD / Unknown Venipuncture / Unknown 12/06/2022 6:28 EDT 12/06/2022 7:18 EDT Darion Tinajero MD CHEMISTRY & BLOOD GA S ORDERABLES [facility] [address] [place] [address] * (ABNORMAL) COMPLETE BLOOD COUNT (12/06/2022 6:28 EDT) WBC 7.20 4.00 - 12.40 K/cmm 12/06/2022 7:33 [facility] RBC 3.58(L) 3.86 - 5.04 M/cmm 12/06/2022 7:33 [facility] Hemoglobin 9.4(L) 11.6 - 15.2 g/dL 12/06/2022 7:33 [facility] HCT 29.0(L) 34.9 - 44.4 % 12/06/2022 7:33 [facility] MCV 81 81 - 98 fL 12/06/2022 7:33 [facility] MCH 26.3(L) 26.7 - 33.3 pg 12/06/2022 7:33 [facility] MCHC 32.4 32.1 - 35.9 g/dL 12/06/2022 7:33 [facility] RDW-CV 15.0(H) <14.7 % 12/06/2022 7:33 [facility] RDW-SD 43.2 <50.4 fl 12/06/2022 7:33 EDT [facility] PLT 297 141 - 377 K/cmm 12/06/2022 7:33 EDT [facility] MPV 12.2 9.5 - 12.7 fL 12/06/2022 7:33 EDT [facility] Blood VENOUS BLOOD / Unknown Venipuncture / Unknown 12/06/2022 6:28 EDT 12/06/2022 7:17 EDT Darion Tinajero MD HEMATOLOGY & PF4 ORD ERABLES Performing Organization Address City/[facility]/ZIP Co de Phone Number [facility] [address] [place] [address] * HEPARIN LEVEL - UNFRACTIONATED HEPARIN (12/06/2022 0:07 EDT) Heparin Level-UFH 0.62 Therapeutic Range: 0.30 - 0.70 IU/mL 12/06/2022 0:34 EDT [facility] Comment:Unfractionated hepar in therapeutic [...] Sebastian MD HEMATOLOGY & PF4 ORD ERABLES [facility] [address] [place] [address] * (ABNORMAL) POCT GLUCOSE, INTERFACED (12/05/2022 21:08 EDT) Glucose, POC 288(H) 70 - 100 mg/dL 12/05/2022 21:10 EDT [facility] HN LAB POC COMMENT (GLUCOSE) Test Performed by Nursing Services 12/05/2022 21:10 EDT [facility] Blood CAPILLARY BLOOD / Unknown 12/05/2022 21:08 EDT 12/05/2022 21:10 EDT Darion Tinajero MD POINT OF CARE TEST O SKINNYLASHELL Performing Organization Address [facility] Co de Phone Number [facility] [address] [place] [address] * (ABNORMAL) POCT GLUCOSE, INTERFACED (12/05/2022 16:28 EDT) Glucose, POC 107(H) 70 - 100 mg/dL 12/05/2022 16:29 EDT [facility] HN LAB POC COMMENT (GLUCOSE) Test Performed by Nursing Services 12/05/2022 16:29 EDT [facility] Blood CAPILLARY BLOOD / Unknown 12/05/2022 16:28 EDT 12/05/2022 16:29 EDT Darion Tinajero MD POINT OF CARE TEST O HERNÁN Performing Organization Address [facility] Co de Phone Number [facility] [address] [place] [address] * HEPARIN LEVEL - UNFRACTIONATED HEPARIN (12/05/2022 12:18 EDT) Heparin Level-UFH 0.71 Therapeutic Range: 0.30 - 0.70 IU/mL 12/05/2022 12:41 EDT [facility] Comment:Unfractionated hepar in therapeutic [...] & PF4 ORD ERABLES Performing Organization Address City/[facility]/ZIP Co de Phone Number [facility] [address] [place] [address] * (ABNORMAL) BASIC METABOLIC PANEL (BMP) (12/05/2022 12:18 EDT) Sodium 140 136 - 145 mmol/L 12/05/2022 13:12 EDT [facility] Potassium 3.9 3.5 - 5.0 mmol/L 12/05/2022 13:12 EDT [facility] Chloride 104 96 - 110 mmol/L 12/05/2022 13:12 T [facility] CO2 Total 25 22 - 32 mmol/L 12/05/2022 13:12 T [facility] Anion Gap 11 5 - 14 mmol/L 12/05/2022 13:12 T [facility] Glucose 173(H) 70 - 100 mg/dl 12/05/2022 13:12 T [facility] Calcium 10.5 8.5 - 10.5 mg/dL 12/05/2022 13:12 T [facility] BUN 15 10 - 26 mg/dL 12/05/2022 13:12 [facility] Creatinine 0.89 0.52 - 1.04 mg/dL 12/05/2022 13:12 T [facility] eGFR 70 >60 mL/min/1.73 m2 12/05/2022 13:12 [facility] Blood VENOUS BLOOD / Unknown Venipuncture / Unknown 12/05/2022 12:18 EDT 12/05/2022 12:25 EDT Darion Tinajero MD CHEMISTRY & BLOOD GA S ORDERABLES Performing Organization Address City/[facility]/ZIP Co de Phone Number [facility] [address] [place] [address] * (ABNORMAL) COMPLETE BLOOD COUNT (12/05/2022 12:18 EDT) WBC 7.00 4.00 - 12.40 K/cmm 12/05/2022 12:32 [facility] RBC 3.82(L) 3.86 - 5.04 M/cmm 12/05/2022 12:32 [facility] Hemoglobin 10.2(L) 11.6 - 15.2 g/dL 12/05/2022 12:32 [facility] HCT 31.9(L) 34.9 - 44.4 % 12/05/2022 12:32 [facility] MCV 84 81 - 98 fL 12/05/2022 12:32 [facility] MCH 26.7 26.7 - 33.3 pg 12/05/2022 12:32 [facility] MCHC 32.0(L) 32.1 - 35.9 g/dL 12/05/2022 12:32 [facility] RDW-CV 14.9(H) <14.7 % 12/05/2022 12:32 [facility] RDW-SD 44.8 <50.4 fl 12/05/2022 12:32 [facility] PLT 467(H) 141 - 377 K/cmm 12/05/2022 12:32 [facility] MPV 10.1 9.5 - 12.7 fL 12/05/2022 12:32 [facility] Blood VENOUS BLOOD / Unknown Venipuncture / Unknown 12/05/2022 12:18 EDT 12/05/2022 12:25 EDT Darion Tinajero MD HEMATOLOGY & PF4 ORD ERABLES [facility] [address] [place] [address] * (ABNORMAL) POCT GLUCOSE, INTERFACED (12/05/2022 11:34 EDT) Glucose, POC 198(H) 70 - 100 mg/dL 12/05/2022 11:35 EDT [facility] HN LAB POC COMMENT (GLUCOSE) Test Performed by Nursing Services 12/05/2022 11:35 EDT [facility] Blood CAPILLARY BLOOD / Unknown 12/05/2022 11:34 EDT 12/05/2022 11:35 EDT Darion Tinajero MD POINT OF CARE TEST O RDERABLES Performing Organization Address [facility] Co de Phone Number [facility] [address] [place] [address] * HEPARIN LEVEL - UNFRACTIONATED HEPARIN (12/05/2022 2:48 EDT) Pathologist [facility] Heparin Level-UFH 0.89 Therapeutic Range: 0.30 - 0.70 IU/mL 12/05/2022 3:05 EDT [facility] Comment:Unfractionated hepar in therapeutic [...] PF4 ORD ERABLES Performing Organization Address [facility] Co de Phone Number [facility] [address] [place] [address] * (ABNORMAL) POCT GLUCOSE, INTERFACED (12/05/2022 0:07 EDT) Glucose, POC 187(H) 70 - 100 mg/dL 12/05/2022 0:08 EDT [facility] HN LAB POC COMMENT (GLUCOSE) Test Performed by Nursing Services 12/05/2022 0:08 EDT [facility] Blood CAPILLARY BLOOD / Unknown 12/05/2022 0:07 EDT 12/05/2022 0:08 EDT Randy Sebastian MD POINT OF CARE TEST O RDERABLES Performing Organization Address City/[facility]/ZIP Co de Phone Number [facility] [address] [place] [address] * (ABNORMAL) POCT GLUCOSE, INTERFACED (12/04/2022 20:36 EDT) Glucose, POC 267(H) 70 - 100 mg/dL 12/04/2022 20:37 EDT [facility] HN LAB POC COMMENT (GLUCOSE) Test Performed by Nursing Services 12/04/2022 20:37 EDT [facility] Blood CAPILLARY BLOOD / Unknown 12/04/2022 20:36 EDT 12/04/2022 20:36 EDT Randy Sebastian MD POINT OF CARE TEST O HERNÁN Performing Organization Address [facility]/ZIP Co de Phone Number [facility] [address] [place] [address] * (ABNORMAL) POCT GLUCOSE, INTERFACED (12/04/2022 19:41 EDT) Glucose, POC 190(H) 70 - 100 mg/dL 12/04/2022 19:42 EDT [facility] HN LAB POC COMMENT (GLUCOSE) Test Performed by Nursing Services 12/04/2022 19:42 EDT [facility] Blood CAPILLARY BLOOD / Unknown 12/04/2022 19:41 EDT 12/04/2022 19:42 EDT Darion Tinajero MD POINT OF CARE TEST O RDERABLES [facility] [address] [place] [address] * (ABNORMAL) POCT GLUCOSE, INTERFACED (12/04/2022 18:03 EDT) Glucose, POC 129(H) 70 - 100 mg/dL 12/04/2022 18:04 EDT [facility] HN LAB POC COMMENT (GLUCOSE) Test Performed by Nursing Services 12/04/2022 18:04 EDT [facility] Blood CAPILLARY BLOOD / Unknown 12/04/2022 18:03 EDT 12/04/2022 18:04 EDT Darion Tinajero MD POINT OF CARE TEST O RDERABLES [facility] [address] [place] [address] * MR CARDIAC W WO CONTRAST W [...] gradient is 14 mmHg. Darion Tinajero MD [facility] [place] ORDERABLES * (ABNORMAL) HEPARIN LEVEL - UNFRACTIONATED HEPARIN (12/04/2022 12:40 EDT) [facility] Heparin Level-UFH 1.84(HH) Therapeutic Range: 0.30 - 0.70 IU/mL 12/04/2022 13:06 EDT [facility] Comment: Recent or concurrent [...] & PF4 ORD ERABLES Performing Organization Address City/[facility]/ZIP Co de Phone Number [facility] [address] [place] [address] * (ABNORMAL) POCT GLUCOSE, INTERFACED (12/04/2022 12:26 EDT) [facility] Glucose, POC 164(H) 70 - 100 mg/dL 12/04/2022 12:28 EDT [facility] HN LAB POC COMMENT (GLUCOSE) Test Performed by Nursing Services 12/04/2022 12:28 EDT [facility] Blood CAPILLARY BLOOD / Unknown 12/04/2022 12:26 EDT 12/04/2022 12:28 EDT Darion Tinajero MD POINT OF CARE TEST O RDERABLES [facility] [address] [place] [address] * (ABNORMAL) POCT GLUCOSE, INTERFACED (12/04/2022 7:55 EDT) [facility] Glucose, POC 189(H) 70 - 100 mg/dL 12/04/2022 7:57 EDT [facility] HN LAB POC COMMENT (GLUCOSE) Test Performed by Nursing Services 12/04/2022 7:57 [facility] Blood CAPILLARY BLOOD / Unknown 12/04/2022 7:55 EDT 12/04/2022 7:57 EDT Darion Tinajero MD POINT OF CARE TEST O RDERABLES [facility] [address] [place] [address] * (ABNORMAL) BASIC METABOLIC PANEL (BMP) (12/04/2022 7:26 EDT) Sodium 139 136 - 145 mmol/L 12/04/2022 8:31 [facility] Potassium 3.9 3.5 - 5.0 mmol/L 12/04/2022 8:31 [facility] Chloride 104 96 - 110 mmol/L 12/04/2022 8:31 [facility] CO2 Total 21(L) 22 - 32 mmol/L 12/04/2022 8:31 [facility] Anion Gap 14 5 - 14 mmol/L 12/04/2022 8:31 [facility] Glucose 229(H) 70 - 100 mg/dl 12/04/2022 8:31 [facility] Calcium 10.3 8.5 - 10.5 mg/dL 12/04/2022 8:31 [facility] BUN 18 10 - 26 mg/dL 12/04/2022 8:31 [facility] Creatinine 0.90 0.52 - 1.04 mg/dL 12/04/2022 8:31 [facility] eGFR 69 >60 mL/min/1.73 m2 12/04/2022 8:31 [facility] Blood VENOUS BLOOD / Unknown Venipuncture / Unknown 12/04/2022 7:26 EDT 12/04/2022 8:03 EDT Darion Tinajero MD CHEMISTRY & BLOOD GA S ORDERABLES [facility] [address] [place] [address] * (ABNORMAL) COMPLETE BLOOD COUNT (12/04/2022 7:26 EDT) WBC 8.02 4.00 - 12.40 K/cmm 12/04/2022 8:16 EDT [facility] RBC 3.67(L) 3.86 - 5.04 M/cmm 12/04/2022 8:16 EDT [facility] Hemoglobin 9.8(L) 11.6 - 15.2 g/dL 12/04/2022 8:16 T [facility] HCT 30.4(L) 34.9 - 44.4 % 12/04/2022 8:16 [facility] MCV 83 81 - 98 fL 12/04/2022 8:16 EDT [facility] MCH 26.7 26.7 - 33.3 pg 12/04/2022 8:16 [facility] MCHC 32.2 32.1 - 35.9 g/dL 12/04/2022 8:16 [facility] RDW-CV 14.9(H) <14.7 % 12/04/2022 8:16 [facility] RDW-SD 44.5 <50.4 fl 12/04/2022 8:16 T [facility] PLT 455(H) 141 - 377 K/cmm 12/04/2022 8:16 [facility] MPV 10.7 9.5 - 12.7 fL 12/04/2022 8:16 [facility] Blood VENOUS BLOOD / Unknown Venipuncture / Unknown 12/04/2022 7:26 EDT 12/04/2022 8:01 EDT Darion Tinajero MD HEMATOLOGY & PF4 ORD ERABLES [facility] [address] [place] [address] * (ABNORMAL) VITAMIN D (25,[place]) (12/04/2022 7:26 EDT) 25OH Vitamin D Tot 21(L) 30 - 100 ng/mL 12/04/2022 12:18 EDT [facility] Comment: Vitamin D 25,[place] Interpretive Ranges: Deficiency: ??<10.0 ng/mL Insufficiency: ??10.0 - 30.0 ng/mL Sufficiency: ??30.0 - 100.0 ng/mL Toxicity: ??>100.0 ng/mL Blood VENOUS BLOOD / Unknown Venipuncture / Unknown 12/04/2022 7:26 EDT 12/04/2022 8:03 EDT Darion Tinajero MD CHEMISTRY & BLOOD GA S ORDERABLES Performing Organization Address [facility] de Phone Number [facility] [address] [place] [address] * (ABNORMAL) LIPID PROFILE (INCLUDES CHOLESTEROL, TRIGLYCERIDES, HDL, LDL) (12/03/2022 23:53 EDT) [facility] Cholesterol 107 <200 mg/dL 12/04/2022 0:16 EDT [facility] Comment:Note that therapeuti c goals will differ between patients based on cardiac risk factors and current medical therapy. HDL 40(L) >=50 mg/dL 12/04/2022 0:16 EDT [facility] Comment:Note that therapeuti c goals will differ between patients based on cardiac risk factors and current medical therapy. LDL, Calculated 29 <160 mg/dL 0:16 T [facility] Comment:Note that therapeuti c goals will differ between patients based on cardiac risk factors and current medical therapy. Triglyceride 188(H) <=150 mg/dL 12/04/2022 0:16 EDT [facility] Comment:Note that therapeuti c goals will differ between patients based on cardiac risk factors and current medical therapy. Chol/HDL Ratio 2.7 See Note 12/04/2022 0:16 EDT [facility] Comment:No reference range h as been established for CHOL/HDL ratio. Non HDL Cholesterol 67 <160 mg/dL 12/04/2022 0:16 EDT [facility] Comment:Note that therapeuti c goals will differ between patients based on cardiac risk factors and current medical therapy. Blood VENOUS BLOOD / Unknown Venipuncture / Unknown 12/03/2022 23:53 EDT 12/04/2022 0:00 EDT Darion Tinajero MD CHEMISTRY & BLOOD GA S ORDERABLES Performing Organization Address [facility] [facility] Co de Phone Number [facility] [address] [place] [address] * (ABNORMAL) HEPARIN LEVEL - UNFRACTIONATED HEPARIN (12/03/2022 23:53 EDT) [facility] Signature Heparin Level-UFH 1.52() Therapeutic Range: 0.30 - 0.70 IU/mL 12/04/2022 0:24 EDT [facility] Comment: Recent or concurrent [...] PF4 ORD ERABLES Performing Organization Address [facility] Co de Phone Number [facility] [address] [place] [address] * (ABNORMAL) TROPONIN I (12/03/2022 23:53 EDT) Troponin I (ng/mL) 0.105(H) <0.034 ng/mL 12/04/2022 0:32 EDT [facility] Blood VENOUS BLOOD / Unknown Venipuncture / Unknown 12/03/2022 23:53 EDT 12/04/2022 0:00 EDT Narrative [facility] - 12/04/2022 0:32 EDT The results of this assay can be falsely lowered due to the consumption of Biotin. Darion Tinajero MD CHEMISTRY & BLOOD GA S ORDERABLES Performing Organization Address [facility] Co de Phone Number [facility] [address] [place] [address] * MAGNESIUM (12/03/2022 23:11 EDT) [facility] Magnesium 1.9 1.7 - 2.8 mg/dL 12/03/2022 23:42 EDT [facility] Comment:Moderate hemolysis i dentified, interpret with caution as results may be affected due to hemolysis. Blood VENOUS BLOOD / Unknown Venipuncture / Unknown 12/03/2022 23:11 EDT 12/03/2022 23:16 EDT Darion Tinajero MD CHEMISTRY & BLOOD GA S ORDERABLES Performing Organization Address [facility] Co de Phone Number [facility] [address] [place] [address] * EKG 12-LEAD (12/03/2022 22:36 EDT) 12/03/2022 22:3 6 EDT Narrative [facility] - 12/08/2022 12:12 EDT ? The ? Test Date: ?2022-12-03 Pat Name: ? FORTUNATO TANNER ?Department: ?? [place] [address] ? Room: ? [id number] Gender: ? Female ? Testing Specialist: ?? : ?1950 ? Requested By: MILTON LEYVA Order Number: [id number] ? Reading MD: ?? DENICE LOBEL MD ? Measurements Intervals ?[place] ? Rate: ? 79 ? P: ?51 [...] Note Denice Nash MD - 12/08/2022 The Test Date: 2022-12-03 Pat Name: FORTUNATO HART Department: [place] [address] Room: [facility] Gender: Female Testing Specialist: : [id number] Requested By: MILTON LEYVA Order Number: [id number] Reading MD: DENICE NASH MD Measurements Intervals [place] Rate: 79 P: 51 [place]: 299 QRS: [...] Darion Tinajero MD CARDIAC ECG ORDERABL ES [facility] E[facility] documented in this encounter Visit Diagnoses Diagnosis ASCVD (arteriosclerotic cardiovascular disease)- Primary Unspecified cardiovascular disease NSTEMI (non-ST elevated myocardial infarction) ([facility]) Acute myocardial infarction, subendocardial infarction, episode of care unspecified Chest pain, unspecified type Hypertrophic cardiomegaly ASCVD (arteriosclerotic cardiovascular disease) Unspecified cardiovascular disease Duodenal erosion Duodenal ulcer, unspecified as acute or chronic, without hemorrhage, perforation, or obstruction Gastrointestinal hemorrhage, unspecified gastrointestinal hemorrhage type NSTEMI (non-ST elevated myocardial infarction) ([facility]) Acute myocardial infarction, subendocardial infarction, episode of care unspecified Hypertrophic cardiomegaly Chest pain Chest pain, unspecified NSTEMI (non-ST elevated myocardial infarction) ([facility]) Acute myocardial infarction, subendocardial infarction, episode of care unspecified documented in this encounter Admitting Diagnoses Diagnosis NSTEMI (non-ST elevated myocardial infarction) ([facility]) Acute myocardial infarction, subendocardial infarction, episode [...] 25 mg 1 12/03/2022 polyethylene glycol 3350 (OR RALAX) packet 17 g 1 12/03/2022 Lab [...] Date First Orde red Date CASE REQUEST EDI PROGRAMMER ANALYST 1 12/06/2022 documented in this encounter Care Teams Terminal Make Up Operator Relationship Specialty Start Date End Date Bryant Crain MD [address] [place] [address] PCP - General 05/04/15 05/17/23 Carlos Ha NP [address] [place] [address] [id number] Consulting Clinician Cardiovascular Disease 09/14/21 documented as of this encounter
--- OUTSIDE RECORDS SUMMARY | 2024-01-14 11:10 | XMS_ITS | Encounter Summary ---
Author Organization [facility] Address [address] [place] [address] Care Team Providers Care Certified Master Safe Technician Name Role Phone Bryant Crain MD Primary Care Provider [phone] Carlos Macario CONTROLLED ATMOSPHERIC FURNACE BRAZER Unavailable [phone] Reason for Referral * Follow Up (Urgent) - New Request Specialty Diagnoses / Procedures Referred By Contac t Referred To Contact Diagnoses Gastrointestinal hemorrhage, unspecified gastrointestinal hemorrhage type NSTEMI (non-ST elevated myocardial infarction) (HCC-CMS) Acute blood loss anemia Hypertrophic cardiomyopathy (HCC-CMS) NSVT (nonsustained ventricular tachycardia) ([facility]) Shawna Terry MD MPH [address] [phone] Bryant Crain MD [address] [place] [address] Referral ID Status Reason Start Date Expiration Date Visits Requested Visits Authorized [id number] New Request Continuity of Care 11/14/2022 1 1 Question Answer Reason for Request: hospital discharge follow up, acute GI bleed, concern for hypertrophic cardiomyopathy * Referral (Urgent) - New Request Specialty Diagnoses / Procedures Referred By Contac t Referred To Contact Diagnoses Gastrointestinal hemorrhage, unspecified gastrointestinal hemorrhage type NSTEMI (non-ST elevated myocardial infarction) (HCC-CMS) Hypertrophic cardiomyopathy (HCC-CMS) Shawna Terry MD MPH [address] [phone] - [place] [address] [place] [address] Referral ID Status Reason Start Date Expiration Date Visits Requested Visits Authorized [id number] New Request Specialty Services Required 11/14/2022 1 1 Question Answer I certify that this patient is under my care and that I, or another Medicare allowed practitioner (DO SATNAM, CONOR) working with me, had a [id number]-[id number] encounter with this patient on this date: [...] Skilled care requested: Acute therapies (includes PT, DEVELOPER EVANGELIST) Therapies skilled care requested: Physical Therapy Physical therapy is needed for: Evaluation, Strength Training/Exercise Program, Safety * Consult (Urgent) - Authorization Not Required Specialty Diagnoses / Procedures Referred By Contac t Referred To Contact Cardiology Diagnoses NSTEMI (non-ST elevated myocardial infarction) (HCC-CMS) Hypertrophic cardiomyopathy (HCC-CMS) NSVT (nonsustained ventricular tachycardia) (HCC-CMS) Shawna Terry MD MPH [address] [phone] [facility] [address] [place] [address] Referral ID Status Reason Start Date Expiration Date Visits Requested Visits Authorized [id number] Authorization Not Required Specialty Services Required 3 1 1 Question Answer Reason for Request: inpatient team requested referral for hx NSVT, HCM, genetic eval for HCM * Cardiology (Routine/Next Available) - Authorized Specialty Diagnoses / Procedures Referred By Contac t Referred To Contact Diagnoses NSTEMI (non-ST elevated myocardial infarction) (HCC-CMS) Hypertrophic cardiomyopathy (HCC-CMS) NSVT (nonsustained ventricular tachycardia) (HCC-CMS) Procedures CARDIAC EVENT MONITOR MA XTRNL MOBILE CV TELEMETRY W/I&REPORT 30 DAYS MA XTRNL PT ACTIVTD ECG DWNLD W/R&I </30 DAYS Shawna Terry MD MPH [address] [address] [facility] Referral ID Status Reason Start Date Expiration Date V isits Requested Visits Authorized [id number] Authorized 11/14/2022 1 1 * Radiology Services (Routine/Next Available) - Receiving Office to Obtain Authorization Specialty Diagnoses / Procedures Referred By Contac t Referred To Contact Radiology Diagnoses NSTEMI (non-ST elevated myocardial infarction) (HCC-CMS) Hypertrophic cardiomyopathy (HCC-CMS) NSVT (nonsustained ventricular tachycardia) (HCC-CMS) Procedures MR CARDIAC W WO CONTRAST Shawna Terry MD MPH [address] [phone] [facility] Referral ID Status Reason Start Date Expiration Date Visits Requested Visits Authorized [id number] Receiving Office to Obtain Authorization 11/14/2022 1 1 Reason for Visit * Auth/Cert (Routine) Specialty Diagnoses / Procedures Referred By Contac t Referred To Contact Diagnoses GI bleed GIB Referral ID Status Reason Start Date Expiration Date Visits Re quested Visits Authorized [id number] 1 1 Encounter Details Date Type Department Care Team (Late st Contact Info) Description 11/11/2022 13:01 EDT - 11/14/2022 17:48 EDT Hospital Encounter [facility] General Medicine Unit [address] [place] [address] Rajinder Glez MD 111 [facility], [address] [place] [address] Shawna Terry MD MPH [address] [phone] Hypertrophic cardiomyopathy (HCC-CMS) (Primary Dx); [...] Summaries * Trisha Fulton MD - 11/14/2022 3258 EDT HOSPITAL MEDICINE DISCHARGE SUMMARY Primary Care Provider: Bryant Crain Attending Physician: Shawna Terry MD, MPH Admit Date: 11/11/22 Discharge Date: 11/14/22 Disposition (location): home, self care Condition at Discharge: Improved Reason for Admission (chief complaint): melena Principal/Final Diagnosis: GI bleed Additional Problems Managed in the Hospital: Active Hospital Problems Diagnosis Date Noted NSTEMI (non-ST elevated myocardial infarction) ([facility]) ([facility]) Duodenal erosion Esophagitis Resolved Hospital Problems Diagnosis Date Noted Date Resolved *GI bleed 11/11/2022 11/14/2022 Syncope 11/14/2022 Acute blood loss anemia 11/14/2022 Transition of care: [facility] Transition of Care report automatically routed [...] f/u) - RESTART: - baby aspirin - ECHO VASCULAR TECHNOLOGIST doses of insulin - NO NSAIDs moving foward 2. Recommended follow-up tests/procedures needed: - close PCP f/u within one week - referral placed for cardiology at [facility] - ordered cardiac MRI - ordered cardiac cath technologist with [facility] 3. Anticoagulation on discharge: No (HELD ECHO VASCULAR TECHNOLOGIST to be discussed with PCP) 4. Changes to goals of care at time of discharge (if applicable): None. Hospital Course: Fortunato Hart is a 72 y.o. female with a PMHx of paroxysmal Afib on eliquis, 2nd degree heart block, CVA on asa, HTN, HLD, and T2DM on insulin who initially presented to [facility] with chest pain, syncope, and one week of melanotic stools. EGD at [facility] showed mild esophagitis but no active bleed, however her hemoglobin dropped by multiple points and she was given 2 units pRBCs. She then developed significant hematemesis and required 2 additional units pRBCs and 2 units FFP. She was ultimately foundto have elevated troponin and had ongoing hematemesis prompting transfer to [facility] for further management. On arrival to [facility], she was stable on room [...] PCP f/u to discuss her hospitalizationand her ECHO VASCULAR TECHNOLOGIST apixaban (on hold given bleed). Important to [...] workup as well as cardiac MRI and cardiac cath technologist with [facility]. She was started on metoprolol tartrate and d/c with plan to f/u at [facility]. Relevant Imaging/Procedures Performed: No results found. Results Pending at Discharge: Test results still pending from this admission None Upcoming Appointments Dec 08, 2022 11:30 (Arrive by 11:15) Office Visit Medium with Carlos Macario NP [facility] (--) [address] [facility] [address] Follow-up appointments and procedures Amb Consult/Follow Up Cardiology Reason for Request: inpatient team requested referral for hx NSVT, HCM, genetic eval for HCM Authorizing Provider: Shawna Terry MD MPH Amb Consult/Follow Up Primary Care Physician Outside of Network Reason for Request: hospital discharge follow up, acute GI bleed, concern for hypertrophic cardiomyopathy Authorizing Provider: Shawna Terry MD MPH [facility] I certify that this patient is under my care and that I, or another Medicare allowed practitioner (, DO, CONOR) working with me, had a yqrl-oi-pbtq encounter with this patient on this date: [...] Skilled care requested: Acute therapies (includes PT, DEVELOPER EVANGELIST) Therapies skilled care requested: Physical Therapy Physical [...] labs that can be done within the [facility] network, or you can call your PCPif they draw blood and get bloodwork through them. We would recommend checking a complete blood count (CBC) to monitor your hemoglobin. - Please follow up with [facility]. A referral was placed and they should call you to schedule. - I have placed orders for the cardiac MRI as well as the cardiac cath technologist (wearable monitor to track your heartbeats over [...] hyperglycemia, with long-term current use of insulin ([facility]) by [facility] (non-drug; combo route) route daily. One touch verio meter or best covered by insurance. 1 Each 10/02/2020 cetirizine (ZYRTEC) 10 mg tablet Take 1 Tablet by mouth daily. Cholecalciferol, Vitamin D3, 10 mcg (400 unit) tablet Take 1 Tablet by mouth daily. cyanocobalamin (VITAMIN B-12) 500 mcg tablet Take 1 Tablet by mouth daily. flash glucose scanning reader (FREESTYLE VICKY 2 READER) [facility] 1 Device by [facility] (non-drug; combo route) route daily. Dispense one [...] 01/18/2020 lancets/blood glucose strips (ONE TOUCH COMBO [facility]) -to test blood sugar [...] Code Departure Means Destination Home or Self Long Term documented in this encounter Progress Notes * Josemanuel Garcia, PT - 11/14/2022 1333 EDT [facility] Rehabilitation Therapy Acute Therapies [facility] Physical Therapy Initial Evaluation/Discontinue Note Date [...] MICU on 11/11/2022 as a transfer from [facility] for syncope, hematemesis, upper GI bleed. At [facility] she received 4 units pRBC, 2 units FFP, Kcentra. Underwent EGD that showed esophagitis and old blood in stomach. Rising troponin and recurrent hematemesis prompting transfer to [facility]. Underwent repeat EGD that show [...] to GI bleed [K92.2] Thepatient lives at [address] [place] [phone] Home environment Lives:with family Caregiver Support: per patient her works math and sciences department chair but his schedule is very flexible and hecan help as needed Equipment Available: Rolling walker Home Environment: house- ranch style Home Layout: One story. Entry stairs one step up into the house Prior Level of Function: Independent Services prior to admission: None Work/Leisure: Retired Medical/Surgical History: CURRENT: The patient has Cerebrovascular accident (CVA) ([facility]); Current use of ad terminal makeup operator 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; manager terminal current use of insulin ([facility]) ([facility]); Essential hypertension; Paroxysmal atrial fibrillation ([facility]) ([facility]); Status post placement of implantable loop recorder; Diabetes mellitus, type 2 ([facility]); Rosacea; Hypomagnesemia; Mixed hyperlipidemia; Ventricular tachycardia ([facility]); Dilated cardiomyopathy ([facility]) ([facility]); Stage 3b chronic kidney disease ([facility]); Osteopenia after menopause; Hypercalcemia; Primary hyperparathyroidism ([facility]); Fatigue; NSTEMI (non-ST elevated myocardial infarction) ([facility]) ([facility]); Duodenal erosion; and Esophagitis on their problem list. PAST: The patient has a past medical history of Cerebrovascular accident (CVA) ([facility]), Diabetes mellitus, type 2 ([facility]) (On metformin On metformin), Essential hypertension, Mixed hyperlipidemia, Nonrheumatic aortic valve stenosis, and Paroxysmal atrial fibrillation ([facility]) ([facility]). Medications: Medications reviewed Arousal, Attention, and Cognition: [...] Interventions Completed Today: Physical Therapy today at: [id number] Total treatment time: 30 minutes. Timed code [...] No All skin intact verified by: Kalyani Olguni RN. Last Jose Score: 16 Instructions: ??? Add LDA for any identified wounds ??? Add [place] image for any suspected PI or non surgical wounds ??? Order wound consult if suspected PI identified ? ? If Jose is < or = to 16, initiate Pressure Injury Prevention Bundle ([id number]). 11/13/2022 12:05 * Stephon Sosa - 11/13/2022 [...] results for input(s): PHISTAT, PCOISTAT, POISTAT, POCTCO2, Q5NPRZPI, POCFIO2 in the last 72 hours. Recent [...] HLD, DM2 on insulin who presented to [facility] on the forchest pain, syncope [...] #tropinemia #2nd degree AV block #LVH -hold ECHO VASCULAR TECHNOLOGIST eliquis -formal TTE: hyperdynamic, asymmetric hypertrophy -trops peaked 11/12 -EKG with V1 V2 ST elevation -EKG if symptomatic -f/u cards recs, -possible inpatient cardiac MRI, will likely need ICD placement -low dose BB when more stable -event monitor on [facility] as outpatient -Monitor on telemetry -hold ECHO VASCULAR TECHNOLOGIST candasartan ?? Renal: - monitor electrolytes, Cr [...] - monitor fingerstick glucose -start lantus 20 (ECHO VASCULAR TECHNOLOGIST 30) ?? PPX: ??? GI:??protonix ??? DVT:??contraindicated SCDs. ??? Elevate HOB ??? Turn q2 ?? CODE: full Contact: PT/OT: Deferred Consults: cards and GI Discharge Plan: Uncertain at this time Stephon Sosa PGY1 Associated attestation - Rajinder Glez MD - 11/13/2022 4928 EDT Attestation: I performed or was present [...] results for input(s): PHISTAT, PCOISTAT, POISTAT, POCTCO2, K7XAMWIL, POCFIO2 in the last 72 hours. Recent [...] HLD, DM2 on insulin who presented to [facility] on the forchest pain, syncope [...] #tropinemia #2nd degree AV block #LVH -hold ECHO VASCULAR TECHNOLOGIST eliquis -formal TTE: hyperdynamic, asymmetric hypertrophy -trops peaked 11/12 -EKG with V1 V2 ST elevation -EKG if symptomatic -f/u cards recs, will likely need ICD placement -Monitor on telemetry -hold ECHO VASCULAR TECHNOLOGIST candasartan -trend lactate Q6, down trending -syncopal [...] - monitor fingerstick glucose -start lantus 20 (ECHO VASCULAR TECHNOLOGIST 30) ?? PPX: ??? GI:??protonix ??? DVT:??contraindicated [...] used for peripheral line insertion. Name of gum machine filler: Suleman Potter RN LDAINFO BLOCK Peripheral IV [...] 11/12/2022 * Nikko Celis DO - 11/11/2022 3388 EDT Brief GI note: Patient admitted as transfer from [facility] in the setting of hematemesis and NSTEMI. She had a EGD donewhich showed mild esophagitis and old blood in the stomach without other significant findings. She had a recurrent episode of hematemesis this morning prompting transfer to [facility]. She has not had recurrent evidence of [...] Fellow * Kizzy Aguila RT - 11/11/2022 6969 EDT Respiratory Consult/Progress Note Indications for Respiratory [...] Rajinder Glez MD - 11/11/2022 1312 EDT [facility] Medical Intensive Care Unit [...] stone passed on 11/07, who presented to [facility] on 11/11 for 2 episodes [...] the . Her troponin downtrended while at [facility] and she wasthen transferred to the [facility] At [facility] she arrives stable on RA without pressors [...] Diagnosis Date ??? Cerebrovascular accident (CVA) ([facility]) ([facility]) ([facility]) 06/01/2019 ??? Diabetes mellitus, type 2 ([facility]) ([facility]) 01/26/2011 On metformin On metformin ??? Essential hypertension 06/01/2019 ??? Mixed hyperlipidemia 06/05/2019 ??? Nonrheumatic aortic valve stenosis 06/01/2019 ??? Paroxysmal atrial fibrillation ([facility]) ([facility]) 06/01/2019 No past surgical history on file. [...] mg tablet ??? flash glucose scanning reader ([employer] VICKY 2 READER) misc ??? SnapShopSTYLE VICKY 2 SENSOR kit ??? gabapentin (NEURONTIN) [...] results for input(s): PHISTAT, PCOISTAT, POISTAT, POCTCO2, O8TDOKCT, POCFIO2 in the last 72 hours. No [...] HLD, DM2 on insulin who presented to [facility] on the forchest pain, syncope [...] #tropinemia #2nd degree AV block #LVH -hold ECHO VASCULAR TECHNOLOGIST eliquis -formal TTE -trend trops to peak -EKG with V1 V2 ST elevation -EKG if symptomatic -f/u cards recs -Monitor on telemetry -hold ECHO VASCULAR TECHNOLOGIST candasartan -trend lactate Q6 -heparin 0.23, INR [...] - monitor fingerstick glucose -start lantus 10 (ECHO VASCULAR TECHNOLOGIST 30) PPX: GI: protonix DVT: contraindicated SCDs. [...] airway assessment) was performed as outlined in [facility] sedation policy ([id number]). Auscultate heart: NORMAL Auscultate lung: normal Mallampati [...] to verify the correct patient, procedure, equipment, lead performance support analyst and site/side marked as required. Patient's heart [...] I personally spent 20 minutes in continuous hkvp-vh-gnho attendance with the patient for the administration [...] History: Diagnosis Date ??? Cerebrovascular accident (CVA) ([facility]) 06/01/2019 ??? Diabetes mellitus, type 2 ([facility]) 01/26/2011 On metformin On metformin ??? Essential hypertension 06/01/2019 ??? Mixed hyperlipidemia 06/05/2019 ??? Nonrheumatic aortic valve stenosis 06/01/2019 ??? Paroxysmal atrial fibrillation ([facility]) ([facility]) 06/01/2019 No past surgical history on file. [...] injection 2 mg 2 mg intradermal PRN Stehpon Sosa ??? pantoprazole (PROTONIX) injection 40 mg [...] ??? Propoxyphene N-Acetaminophen Other reaction(s): Hallucinations ??? Qorxssw-Zyy-Ekn Reductase Inhibitors ??? Trulicity [Dulaglutide] Gi Side [...] recent syncope currently with Ziopatch transferred to [facility] from [facility] on 11/11/2022 for GIB and [...] makes doing so unsuitable (again suspect demand RI. From our discussion with Fortunato, it seemsshe [...] HCM - Will need Event monitor on [facility] as outpatient given h/o NSVT and HCM - Outpatient cardiology f/u at [facility] Outpatient genetic mutation evaluation Interval History O/N: [...] with the assessment and plan. Ty Kebede Audit Spec PGY4 Pager: [phone] Some of this note was transcribed with [...] 11/30/2022 21:29 Cardiology Consult: Date: 11/11/2022 Outpatient Gymnastics Instructor: Carlos Macario NP Consulting Reasons: Elevated troponin [...] recent syncope currently with Ap transferred to [facility] from [facility] on 11/11/2022 for GIB and [...] makes doing so unsuitable (again suspect demand RI. From our discussion with Fortunato, it seems she has been told she has HCM in the past my a physician in [place], but not much additional work up (including [...] Will need outpatient cardiology follow up at [facility] (Fortunato agrees to this) - Agree with monitoring on telemetry while admitted History of Present Illness Fortunato initially presented to her PCP's office yesterday for chest pressure and two recent syncopalepisodes. An EKG was reassuring at this time, though she developed another episode of chest pressure yesterday evening, for which she ultimately went to the ED at [facility]. She reports that she has [...] that she associates with eating. In the [facility] ED she was found to have a Hbg of 9.9, which subsequently dropped to 7.1, as well as anelevated troponin (?[address] Pizano's telephone encounter) which began to downtrend prior to hertransfer to [facility]. She was given 2 units pRBC's, and EGD revealed esophagitis and blood clots in the stomach, but no active bleeding. In the paperhanger contractor of 11/11 she had two bouts of hematemesis (1.5 cups + 475 cc respectively), received 2 more units pRBC's, 2 units FFP, and PCC. Octreotide infusion and Protonix were started, and she was transferred to [facility]. Eliquis and ASA last taken on 11/09. Upon arrival to [facility], Fortunato was found to have ECG [...] Diagnosis Date ??? Cerebrovascular accident (CVA) ([facility]) (HCC) ([facility]) 06/01/2019 ??? Diabetes mellitus, type 2 (HCC) ([facility]) 01/26/2011 On metformin On metformin ??? Essential hypertension 06/01/2019 ??? Mixed hyperlipidemia 06/05/2019 ??? Nonrheumatic aortic valve stenosis 06/01/2019 ??? Paroxysmal atrial fibrillation ([facility]) ([facility]) 06/01/2019 No past surgical history on file. Social History Family History Social History Tobacco Use ??? Smoking status: Never ??? Smokeless tobacco: Never Substance Use Topics ??? Alcohol use: Not on file EtoH: [] Yes [x] No Illicits: [] Yes [x] No No family history on file. Premature CVA/RI: [] Yes [x] No` Sudden : [] [...] 1/4 needle ??? blood glucose meter by [facility] (non-drug; combo route) route daily. One touch [...] Tablet 2 ??? flash glucose scanning reader (SnapShopSTYLE VICKY 2 READER) misc 1 Device by [...] ??? Propoxyphene N-Acetaminophen Other reaction(s): Hallucinations ??? Wbddwue-Ukt-Onp Reductase Inhibitors ??? Trulicity [Dulaglutide] Gi Side [...] and plan as shown above. Ty Kebede Audit Spec PGY4 Some of this note was transcribed [...] Plan Documentation Outcome: Ongoing Flowsheets (Taken 11/14/2022 5316) Area of Focus: Safety Goal This Shift: [...] T2DM on insulin who initially presented to [facility] with chest pain, syncope. She was ultimately found to have elevated troponin, hematemesis, and melena and was sent to [facility] for further management. In brief, patient had 1 week of melanotic stools prior to initial presentation. She had multiple episodes of chest pain and 2 episodes of syncope, prompting evaluation in [facility] ED. While there, she was [...] well as Kcentra. She was transferred to [facility] for GI bleed and NSTEMI. On arrival to [facility], she was stable on room [...] Diagnosis Date ??? Cerebrovascular accident (CVA) ([facility]) 06/01/2019 ??? Diabetes mellitus, type 2 ([facility] [facility]) 01/26/2011 On metformin On metformin ??? Essential hypertension 06/01/2019 ??? Mixed hyperlipidemia 06/05/2019 ??? Nonrheumatic aortic valve stenosis 06/01/2019 ??? Paroxysmal atrial fibrillation ([facility]) ([facility]) 06/01/2019 No past surgical history on file. [...] ??? Propoxyphene N-Acetaminophen Other reaction(s): Hallucinations ??? Qemiqoq-Nsk-Koq Reductase Inhibitors ??? Trulicity [Dulaglutide] Gi Side [...] CVA who presented as a transfer from [facility] with upper GI bleed and [...] and HCM - Outpatient cardiology f/u at [facility] -Outpatient genetic mutation evaluation #Paroxysmal Afib on ECHO VASCULAR TECHNOLOGIST eliquis - HOLD ECHO VASCULAR TECHNOLOGIST eliquis given acute bleed #T2DM: Last hemoglobin A1c 7.1% on 11/11/2022. - SSI - lantus 20 units - FSBG with meals and at bedtime - gabapentin 600 mg BID #HTN #HLD - hold??ECHO VASCULAR TECHNOLOGIST??candasartan given recent acute bleed -Trend blood pressure [...] (on apixaban),CVA, IDMM2, HTN who presented from [facility] with NSTEMI, syncope, and melana. EGD at [facility] showed esophagitis. She then developed hematemesis and transferred to [facility]. Trop peaked at 34.7. Repeat [...] to JALEN Samson and pt transferred to [place] [address] at 1045. Problem: HEMODYNAMIC STATUS Goal: Patient [...] MICU on 11/11/2022 as a transfer from [facility] for syncope, hematemesis, upper GI bleed. At [facility] she received 4 units pRBC, 2 units FFP, Kcentra. Underwent EGD that showed esophagitis and old blood in stomach. Rising troponin and recurrent hematemesis prompting transfer to [facility]. Underwent repeat EGD that show [...] bed becomes available. - Please call pager #[phone] Admitting Hospitalist when patient arrives to the [...] LDA for any identified wounds ??? Add [place] image for any suspected PI or non surgical wounds ??? Order wound consult if suspected PI identified ? ? If Jose is < or = to 16, initiate Pressure Injury Prevention Bundle ([id number]). 11/11/2022 15:32 documented in this encounter Plan of Treatment Upcoming Encounters Date Type Department Care Team (Late st Contact Info) Description 03/08/2024 9:30 EDT Ancillary Procedure [facility] Cardiology - [facility] [address] [place] [address] 03/08/2024 10:15 EDT Ancillary Procedure [facility] [place] [address] 04/05/2024 10:00 EDT Ancillary Procedure [facility] [address] [place] [id number] 04/05/2024 10:00 EDT Office Visit [facility] [address] [place] [id number] Carlos Macario NP [address] [place] [address] [place] [address] Pending Results Name Type Priority [...] type NSTEMI (non-ST elevated myocardial infarction) ([facility]) Acute blood loss anemia Hypertrophic cardiomyopathy ([facility]) NSVT (nonsustained ventricular tachycardia) ([facility]) Expected: 11/16/2022 (Approximate), Expires: 11/15/2023 documented as [...] EDT) 12/01/2022 17:4 5 EDT Scan 2 Core Java Software Engineer PROCEDURE/MINOR CROW GICAL ORDERABLES * ECG REPORT - SCANNED (11/19/2022 7:53 EDT) 11/19/2022 7:53 EDT Scan 2 Core Java Software Engineer PROCEDURE/MINOR CROW GICAL ORDERABLES * (ABNORMAL) POCT [...] O RDERABLES [facility] [address] [place] [address] * (ABNORMAL) POCT GLUCOSE, INTERFACED (11/14/2022 11:47 EDT) Glucose, POC 232(H) 70 - 100 mg/dL 11/14/2022 11:48 EDT [facility] HN LAB POC COMMENT (GLUCOSE) Test Performed by Nursing Services 11/14/2022 11:48 EDT [facility] Blood CAPILLARY BLOOD / Unknown 11/14/2022 11:47 EDT 11/14/2022 11:48 EDT Stephon Sosa POINT OF CARE TEST O RDERABLES Performing Organization Address City/[facility]/ZIP Co de Phone Number [facility] [address] [place] [address] * (ABNORMAL) POCT GLUCOSE, INTERFACED (11/14/2022 9:46 [...] Organization Address [facility]/ZIP Co de Phone Number [facility] [address] [place] [address] * (ABNORMAL) COMPLETE BLOOD COUNT (11/14/2022 8:40 EDT) WBC 19.14(H) 4.00 - 12.40 K/cmm 11/14/2022 9:41 [facility] RBC 2.84(L) 3.86 - 5.04 M/cmm 11/14/2022 9:41 [facility] Hemoglobin 8.7(L) 11.6 - 15.2 g/dL 11/14/2022 9:41 [facility] HCT 25.0(L) 34.9 - 44.4 % 11/14/2022 9:41 [facility] MCV 88 81 - 98 fL 11/14/2022 9:41 [facility] MCH 30.6 26.7 - 33.3 pg 11/14/2022 9:41 [facility] MCHC 34.8 32.1 - 35.9 g/dL 11/14/2022 9:41 [facility] RDW-CV 14.3 <14.7 % 11/14/2022 [...] & PF4 ORD ERABLES Performing Organization Address City/[facility] Co de Phone Number [facility] [address] [place] [address] * (ABNORMAL) POCT GLUCOSE, INTERFACED (11/13/2022 21:16 EDT) Glucose, POC 265(H) 70 - 100 mg/dL 11/13/2022 21:18 EDT [facility] HN LAB POC COMMENT (GLUCOSE) Test Performed by Nursing Services 11/13/2022 21:18 EDT [facility] Blood CAPILLARY BLOOD / Unknown 11/13/2022 21:16 EDT 11/13/2022 21:17 EDT Stephon Sosa POINT OF CARE TEST O RDERABLES Performing Organization Address City/[facility]/ZIP Co de Phone Number [facility] [address] [place] [address] * (ABNORMAL) COMPLETE BLOOD COUNT (11/13/2022 19:17 EDT) WBC 19.01(H) 4.00 - 12.40 K/cmm 11/13/2022 19:33 EDT [facility] RBC 2.63(L) 3.86 - 5.04 M/cmm 11/13/2022 19:33 [facility] Hemoglobin 8.2(L) 11.6 - 15.2 g/dL 11/13/2022 19:33 [facility] HCT 22.8(L) 34.9 - 44.4 % 11/13/2022 19:33 [facility] MCV 87 81 - 98 fL 11/13/2022 19:33 [facility] MCH 31.2 26.7 - 33.3 pg 11/13/2022 19:33 [facility] MCHC 36.0(H) 32.1 - 35.9 g/dL 11/13/2022 19:33 [facility] RDW-CV 14.3 <14.7 % 11/13/2022 19:33 [facility] RDW-SD 44.0 <50.4 fl 11/13/2022 19:33 [facility] PLT 201 141 - 377 K/cmm 11/13/2022 19:33 [facility] MPV 11.3 9.5 - 12.7 fL 11/13/2022 19:33 [facility] Nucleated Red Blood Cells 2(H) <=0 /100WBC'S 11/13/2022 19:33 [facility] Blood VENOUS BLOOD / Unknown Venipuncture / Unknown 11/13/2022 19:17 EDT 11/13/2022 19:26 EDT Trisha Fulton MD HEMATOLOGY & PF4 ORD ERABLES [facility] [address] [place] [address] * (ABNORMAL) POCT GLUCOSE, INTERFACED (11/13/2022 17:09 EDT) Glucose, POC 212(H) 70 - 100 mg/dL 11/13/2022 17:11 [facility] HN LAB POC COMMENT (GLUCOSE) Test Performed by Nursing Services 11/13/2022 17:11 [facility] Blood CAPILLARY BLOOD / Unknown 11/13/2022 17:09 EDT 11/13/2022 17:11 EDT Stephon Sosa POINT OF CARE TEST O RDERABLES Performing Organization Address City/[facility]/ZIP Co de Phone Number [facility] [address] [place] [address] * (ABNORMAL) POCT GLUCOSE, INTERFACED (11/13/2022 13:10 EDT) Pathologist [facility] Glucose, POC 171(H) 70 - 100 mg/dL 11/13/2022 13:17 EDT [facility] HN LAB POC COMMENT (GLUCOSE) Test Performed by Nursing Services 11/13/2022 13:17 EDT [facility] Blood CAPILLARY BLOOD / Unknown 11/13/2022 13:10 EDT 11/13/2022 13:17 EDT Stephon Sosa POINT OF CARE TEST O RDERABLES Performing Organization Address City/[facility]/ZIP Co de Phone Number [facility] [address] [place] [address] * SLIDE REQUEST (11/13/2022 11:45 EDT) Pathologist [facility] Note A smear is filed in the Hematology lab. 11/13/2022 13:12 EDT [facility] Blood VENOUS BLOOD / Unknown Venipuncture / Unknown 11/13/2022 11:45 EDT 11/13/2022 12:30 EDT Stephon Sosa HEMATOLOGY & PF4 ORD ERABLES Performing Organization Address City/[facility]/ZIP Co de Phone Number [facility] [address] [place] [address] * (ABNORMAL) COMPLETE BLOOD COUNT (11/13/2022 11:45 EDT) Pathologist [facility] WBC 20.54(H) 4.00 - 12.40 K/cmm 11/13/2022 12:44 EDT [facility] RBC 2.66(L) 3.86 - 5.04 M/cmm 11/13/2022 12:44 [facility] Hemoglobin 8.2(L) 11.6 - 15.2 g/dL 11/13/2022 12:44 [facility] HCT 22.4(L) 34.9 - 44.4 % 11/13/2022 12:44 [facility] MCV 84 81 - 98 fL 11/13/2022 12:44 [facility] MCH 30.8 26.7 - 33.3 pg 11/13/2022 12:44 [facility] MCHC 36.6(H) 32.1 - 35.9 g/dL 11/13/2022 12:44 [facility] RDW-CV 14.4 <14.7 % 11/13/2022 12:44 [facility] RDW-SD 42.5 <50.4 fl 11/13/2022 12:44 [facility] PLT 185 141 - 377 K/cmm 11/13/2022 12:44 [facility] MPV 11.2 9.5 - 12.7 fL 11/13/2022 12:44 [facility] Nucleated Red Blood Cells 2(H) <=0 /100WBC'S 11/13/2022 12:44 [facility] Blood VENOUS BLOOD / Unknown Venipuncture / Unknown 11/13/2022 11:45 EDT 11/13/2022 12:30 EDT Stephon Sosa HEMATOLOGY & PF4 ORD ERABLES [facility] [address] [place] [address] * ECG REPORT - SCANNED (11/13/2022 9:56 EDT) 11/13/2022 9:56 EDT Scan 2 Core Java Software Engineer PROCEDURE/MINOR CROW GICAL ORDERABLES * (ABNORMAL) POCT GLUCOSE, INTERFACED (11/13/2022 8:09 EDT) [facility] Glucose, POC 177(H) 70 - 100 mg/dL 11/13/2022 8:10 EDT [facility] HN LAB POC COMMENT (GLUCOSE) Test Performed by Nursing Services 11/13/2022 8:10 EDT [facility] Blood CAPILLARY BLOOD / Unknown 11/13/2022 8:09 EDT 11/13/2022 8:10 EDT Stephon Sosa POINT OF CARE TEST O RDERABLES Performing Organization Address City/[facility]/ZIP Co de Phone Number [facility] [address] [place] [address] * SLIDE REQUEST (11/13/2022 6:28 EDT) [facility] Note A smear is filed in the Hematology lab. 11/13/2022 7:31 EDT [facility] Blood VENOUS BLOOD / Unknown Venipuncture / Unknown 11/13/2022 6:28 EDT 11/13/2022 7:05 EDT Stephon Sosa HEMATOLOGY & PF4 ORD ERABLES Performing Organization Address City/[facility]/ZIP Co de Phone Number [facility] [address] [place] [address] * (ABNORMAL) COMPLETE BLOOD COUNT (11/13/2022 6:28 EDT) [facility] WBC 23.98(H) 4.00 - 12.40 K/cmm 11/13/2022 7:11 T [facility] RBC 2.68(L) 3.86 - 5.04 M/cmm 11/13/2022 7:11 [facility] Hemoglobin 8.4(L) 11.6 - 15.2 g/dL 11/13/2022 7:11 [facility] HCT 23.2(L) 34.9 - 44.4 % 11/13/2022 7:11 [facility] MCV 87 81 - 98 fL 11/13/2022 7:11 EDT [facility] MCH 31.3 26.7 - 33.3 pg 11/13/2022 7:11 [facility] MCHC 36.2(H) 32.1 - 35.9 g/dL 11/13/2022 7:11 [facility] RDW-CV 14.4 <14.7 % 11/13/2022 7:11 [facility] RDW-SD 43.9 <50.4 fl 11/13/2022 7:11 [facility] PLT 172 141 - 377 K/cmm 11/13/2022 7:11 [facility] MPV 12.0 9.5 - 12.7 fL 11/13/2022 7:11 [facility] Nucleated Red Blood Cells 1(H) <=0 /100WBC'S 11/13/2022 7:11 [facility] Blood VENOUS BLOOD / Unknown Venipuncture / Unknown 11/13/2022 6:28 EDT 11/13/2022 7:05 EDT Stephon Sosa HEMATOLOGY & PF4 ORD ERABLES Performing Organization Address [facility] Co de Phone Number [facility] [address] [place] [id number] * (ABNORMAL) POCT GLUCOSE, INTERFACED (11/13/2022 6:14 EDT) Glucose, POC 174(H) 70 - 100 mg/dL 11/13/2022 6:15 EDT [facility] HN LAB POC COMMENT (GLUCOSE) Test Performed by Nursing Services 11/13/2022 6:15 EDT [facility] Blood CAPILLARY BLOOD / Unknown 11/13/2022 6:14 EDT 11/13/2022 6:14 EDT Stephon Sosa POINT OF CARE TEST O RDERABLES Performing Organization Address City/[facility]/ZIP Co de Phone Number [facility] [address] [place] [address] * (ABNORMAL) POCT GLUCOSE, INTERFACED (11/12/2022 23:54 EDT) Pathologist [facility] Glucose, POC 173(H) 70 - 100 mg/dL 11/12/2022 23:55 EDT [facility] HN LAB POC COMMENT (GLUCOSE) Test Performed by Nursing Services 11/12/2022 23:55 EDT [facility] Blood CAPILLARY BLOOD / Unknown 11/12/2022 23:54 EDT 11/12/2022 23:55 EDT Stephon Sosa POINT OF CARE TEST O RDERABLES Performing Organization Address City/[facility]/ZIP Co de Phone Number [facility] [address] [place] [address] * SLIDE REQUEST (11/12/2022 23:51 EDT) [facility] Note A smear is filed in the Hematology lab. 11/13/2022 0:32 EDT [facility] Blood VENOUS BLOOD / Unknown Venipuncture / Unknown 11/12/2022 23:51 EDT 11/13/2022 0:01 EDT Stephon Sosa HEMATOLOGY & PF4 ORD ERABLES Performing Organization Address City/[facility]/ZIP Co de Phone Number [facility] [address] [place] [address] * (ABNORMAL) COMPLETE BLOOD COUNT (11/12/2022 23:51 EDT) [facility] WBC 23.57(H) 4.00 - 12.40 K/cmm 11/13/2022 0:08 EDT [facility] RBC 2.74(L) 3.86 - 5.04 M/cmm 11/13/2022 0:08 EDT [facility] Hemoglobin 8.1(L) 11.6 - 15.2 g/dL 11/13/2022 0:08 EDT [facility] HCT 23.5(L) 34.9 - 44.4 % 11/13/2022 0:08 [facility] MCV 86 81 - 98 fL 11/13/2022 0:08 [facility] MCH 29.6 26.7 - 33.3 pg 11/13/2022 0:08 [facility] MCHC 34.5 32.1 - 35.9 g/dL 11/13/2022 0:08 [facility] RDW-CV 14.3 <14.7 % 11/13/2022 0:08 [facility] RDW-SD 43.6 <50.4 fl 11/13/2022 0:08 [facility] PLT 174 141 - 377 K/cmm 11/13/2022 0:08 [facility] MPV 11.3 9.5 - 12.7 fL 11/13/2022 0:08 [facility] Nucleated Red Blood Cells 1(H) <=0 /100WBC'S 11/13/2022 0:08 [facility] Blood VENOUS BLOOD / Unknown Venipuncture / Unknown 11/12/2022 23:51 EDT 11/13/2022 0:01 EDT Stephon Sosa HEMATOLOGY & PF4 ORD ERABLES Performing Organization Address City/State/[facility] Co de Phone Number [facility] [address] [place] [address] * UPPER ENDOSCOPY PROCEDURE (11/12/2022 20:51 EDT) [...] CARE TEST O RDERABLES Performing Organization Address City/[facility]/ZIP Co de Phone Number [facility] [address] [place] [address] * SLIDE REQUEST (11/12/2022 19:39 EDT) Note A smear is filed in the Hematology lab. 11/12/2022 21:28 EDT [facility] Blood VENOUS BLOOD / Unknown Finger/Heel Stick / Unknown 11/12/2022 19:39 EDT 11/12/2022 20:02 EDT Stephon Sosa HEMATOLOGY & PF4 ORD ERABLES Performing Organization Address [facility] de Phone Number [facility] [address] [place] [address] * (ABNORMAL) COMPLETE BLOOD COUNT (11/12/2022 19:39 EDT) WBC 28.23(H) 4.00 - 12.40 K/cmm 11/12/2022 20:42 [facility] RBC 3.14(L) 3.86 - 5.04 M/cmm 11/12/2022 20:42 [facility] Hemoglobin 9.7(L) 11.6 - 15.2 g/dL 11/12/2022 20:42 [facility] HCT 27.5(L) 34.9 - 44.4 % 11/12/2022 20:42 [facility] MCV 88 81 - 98 fL 11/12/2022 20:42 [facility] MCH 30.9 26.7 - 33.3 pg 11/12/2022 20:42 [facility] MCHC 35.3 32.1 - 35.9 g/dL 11/12/2022 20:42 [facility] RDW-CV 14.3 <14.7 % 11/12/2022 20:42 [facility] RDW-SD 43.3 <50.4 fl 11/12/2022 [...] & PF4 ORD ERABLES Performing Organization Address [facility] Co de Phone Number [facility] [address] [place] [address] * (ABNORMAL) POCT GLUCOSE, INTERFACED (11/12/2022 18:27 EDT) Glucose, POC 225(H) 70 - 100 mg/dL 11/12/2022 18:28 EDT [facility] HN LAB POC COMMENT (GLUCOSE) Test Performed by Nursing Services 11/12/2022 18:28 EDT [facility] Blood CAPILLARY BLOOD / Unknown 11/12/2022 18:27 EDT 11/12/2022 18:28 EDT Stephon Sosa POINT OF CARE TEST O RDERABLES Performing Organization Address City/[facility]/ZIP Co de Phone Number [facility] [address] [place] [address] * TRANSFUSE RED BLOOD CELLS (11/12/2022 15:38 [...] CARE TEST O RDERABLES Performing Organization Address City/[facility]/ZIP Co de Phone Number [facility] [address] [place] [address] * SLIDE REQUEST (11/12/2022 11:47 EDT) Note A smear is filed in the Hematology lab. 11/12/2022 12:27 EDT [facility] Blood VENOUS BLOOD / Unknown Venipuncture / Unknown 11/12/2022 11:47 EDT 11/12/2022 11:56 EDT Stephon Sosa HEMATOLOGY & PF4 ORD ERABLES [facility] [address] [place] [address] * MAGNESIUM (11/12/2022 11:47 EDT) Magnesium 2.1 1.7 - 2.8 mg/dL 11/12/2022 12:19 [facility] Blood VENOUS BLOOD / Unknown Venipuncture / Unknown 11/12/2022 11:47 EDT 11/12/2022 11:56 EDT Stephon Sosa CHEMISTRY & BLOOD AK S ORDERABLES [facility] [address] [place] [address] * (ABNORMAL) BASIC METABOLIC PANEL (BMP) (11/12/2022 11:47 EDT) Sodium 136 136 - 145 mmol/L 11/12/2022 12:19 [facility] Potassium 4.6 3.5 - 5.0 mmol/L 11/12/2022 12:19 [facility] Chloride 107 96 - 110 mmol/L 11/12/2022 12:19 [facility] CO2 Total 21(L) 22 - 32 mmol/L 11/12/2022 12:19 [facility] Anion Gap 8 5 - 14 mmol/L 11/12/2022 12:19 [facility] Glucose 274(H) 70 - 100 mg/dl 11/12/2022 12:19 [facility] Calcium 9.2 8.5 - 10.5 mg/dL 11/12/2022 12:19 [facility] BUN 46(H) 10 - 26 mg/dL 11/12/2022 12:19 [facility] Creatinine 1.07(H) 0.52 - 1.04 mg/dL 11/12/2022 12:19 [facility] eGFR 56(L) >60 mL/min/1.73 m2 11/12/2022 12:19 [facility] Blood VENOUS BLOOD / Unknown Venipuncture / Unknown 11/12/2022 11:47 EDT 11/12/2022 11:56 EDT Stephon Sosa CHEMISTRY & BLOOD AK S ORDERABLES [facility] [address] [place] [address] * (ABNORMAL) COMPLETE BLOOD COUNT (11/12/2022 11:47 EDT) WBC 25.10(H) 4.00 - 12.40 K/cmm 11/12/2022 12:08 [facility] RBC 2.27(L) 3.86 - 5.04 M/cmm 11/12/2022 12:08 [facility] Hemoglobin 6.9(LL) 11.6 - 15.2 g/dL 11/12/2022 12:08 [facility] HCT 19.9(LL) 34.9 - 44.4 % 11/12/2022 12:08 [facility] MCV 88 81 - 98 fL 11/12/2022 12:08 [facility] MCH 30.4 26.7 - 33.3 pg 11/12/2022 12:08 [facility] MCHC 34.7 32.1 - 35.9 g/dL 11/12/2022 12:08 [facility] RDW-CV 14.6 <14.7 % 11/12/2022 12:08 [facility] RDW-SD 45.0 <50.4 fl 11/12/2022 12:08 [facility] PLT 221 141 - 377 K/cmm 11/12/2022 12:08 [facility] MPV 11.5 9.5 - 12.7 fL 11/12/2022 12:08 [facility] Nucleated Red Blood Cells 1(H) <=0 /100WBC'S 11/12/2022 12:08 [facility] Blood VENOUS BLOOD / Unknown Venipuncture / Unknown 11/12/2022 11:47 EDT 11/12/2022 11:56 EDT Stephon Sosa HEMATOLOGY & PF4 ORD ERABLES [facility] [address] [place] [address] * CALCIUM, IONIZED (11/12/2022 11:46 EDT) Calcium, Ionized 1.23 1.14 - 1.35 mmol/L 11/12/2022 12:12 EDT [facility] Blood VENOUS BLOOD / Unknown Venipuncture / Unknown 11/12/2022 11:46 EDT 11/12/2022 11:56 EDT Stephon Lang CHEMISTRY & BLOOD GA S ORDERABLES Performing Organization Address City/[facility] Co de Phone Number [facility] [address] [place] [address] * PREPARE RED BLOOD CELLS (11/12/2022 9:57 EDT) Product Code [id number] [facility] Donor Number [id number] [place] [facility] ABO A [facility] Unit Rh NEG [facility] Unit Status TR^Transfuse [facility] Product Expiration Date [id number] [facility] Blood Type Code 0600 [facility] Volume 275 [facility] Coding System [id number] [facility] 11/12/2022 9:57 EDT Stephon Lena BLOOD BANK ORDERABLE S [facility] [address] [place] [address] * PREPARE RED BLOOD CELLS (11/12/2022 9:57 EDT) Product Code [id number] [facility] Donor Number [id number] [place] [facility] ABO O [facility] Unit Rh NEG [facility] Unit Status TR^Transfuse [facility] Product Expiration [facility] [id number] [facility] Unit Blood Type Code 9500 [facility] Coding System [id number] Blood 11/12/2022 9:57 EDT Stephon Sosa BLOOD BANK ORDERABLE S [facility] [address] [place] [address] * EKG 12-LEAD (11/12/2022 9:47 EDT) 11/12/2022 9:47 EDT Narrative [facility] EKG - 11/13/2022 9:51 EDT ? [facility] ? Test Date: ?2022-11-12 Pat Name: ? Fortunato Tanner ?Department: ?? LOR[facility] 4 ? Room: ? Gender: ? Female ? Conveyor Attendant: ?? : ?1950 ? Requested By: RAJINDER GLEZ MD Order Number: ?Reading : ?? EDGARDO MACARIO MD ? Measurements Intervals ?[place] ? Rate: ? 91 ? P: ?71 MA: ? 244 ?QRS: ?-14 QRSD: ? 121 [...] Note Edgardo Macario MD - 11/13/2022 [facility] Test Date: 2022-11-12 Pat Name: Fortunato Tanner Department: [place] [address] Room: Gender: Female Conveyor Attendant: : 1950 Requested By: RAJINDER GLEZ MD Order Number: Reading MD: EDGARDO MACARIO MD Measurements Intervals [place] Rate: 91 P: 71 MA: 244 QRS: -14 QRSD: 121 T: 143 [...] CARDIAC ECG ORDERABL ES Performing Organization Address [facility]/ZIP Co de Phone Number [facility] EKG [...] O RDERABLES [facility] [address] [place] [address] * SLIDE REQUEST (11/12/2022 9:24 EDT) Note A smear is filed in the Hematology lab. 11/12/2022 10:07 EDT [facility] Blood VENOUS BLOOD / Unknown Venipuncture / Unknown 11/12/2022 9:24 EDT 11/12/2022 9:32 EDT Stephon Sosa HEMATOLOGY & PF4 ORD ERABLES [facility] [address] [place] [address] * (ABNORMAL) COMPLETE BLOOD COUNT (11/12/2022 9:24 [...] ORD ERABLES [facility] [address] [place] [address] * PATIENT RE-TYPE (11/12/2022 9:23 EDT) ABO A 11/12/2022 10:38 EDT [facility] Rh Factor Negative 11/12/2022 10:38 EDT [facility] Blood VENOUS BLOOD / Unknown Venipuncture / Unknown 11/12/2022 9:23 EDT 11/12/2022 9:39 EDT Stephon Sosa BLOOD BANK TESTS Performing Organization Address City/[facility]/ZIP Co de Phone Number [facility] [address] [place] [address] * SLIDE REQUEST (11/12/2022 7:23 EDT) Note A smear is filed in the Hematology lab. 11/12/2022 8:06 EDT [facility] Blood VENOUS BLOOD / Unknown Venipuncture / Unknown 11/12/2022 7:23 EDT 11/12/2022 7:31 EDT Stephon Sosa HEMATOLOGY & PF4 ORD ERABLES Performing Organization Address City/[facility]/ZIP Co de Phone Number [facility] [address] [place] [address] * (ABNORMAL) COMPLETE BLOOD COUNT (11/12/2022 7:23 [...] 189 141 - 377 K/cmm 11/12/2022 7:49 [facility] MPV 11.2 9.5 - 12.7 fL 11/12/2022 7:49 [facility] Nucleated Red Blood Cells 1(H) <=0 /100WBC'S 11/12/2022 7:49 T [facility] Blood VENOUS BLOOD / Unknown Venipuncture / Unknown 11/12/2022 7:23 EDT 11/12/2022 7:31 EDT Stephon Sosa HEMATOLOGY & PF4 ORD ERABLES Performing Organization Address [facility]/State/ZIP Co de Phone Number [facility] [address] [place] [address] * (ABNORMAL) POCT GLUCOSE, INTERFACED (11/12/2022 6:09 EDT) Glucose, POC 212(H) 70 - 100 mg/dL 11/12/2022 6:10 EDT [facility] HN LAB POC COMMENT (GLUCOSE) Test Performed by Nursing Services 11/12/2022 6:10 EDT [facility] Blood CAPILLARY BLOOD / Unknown 11/12/2022 6:09 EDT 11/12/2022 6:10 EDT Stephon Sosa POINT OF CARE TEST O RDERABLES [facility] [address] [place] [address] * POC US VAT LINE PLACEMENT (11/12/2022 3:25 EDT) Narrative 11/12/2022 3:25 EDT This is a non-reportable exam. Rajinder Glez MD IMG US POC ORDERABLE S * COMPLETE BLOOD COUNT (11/12/2022 3:22 EDT) WBC 11/12/2022 4:13 EDT [facility] Comment: Clotted This is a corrected result. Previous result was 24.80 K/cmm on 11/12/2022 at 0401 EDT RBC 11/12/2022 4:13 [facility] Comment: Clotted This is a [...] & PF4 ORD ERABLES Performing Organization Address City/[facility]/ZIP Co de Phone Number [facility] [address] [place] [address] * (ABNORMAL) POCT GLUCOSE, INTERFACED (11/12/2022 0:15 EDT) Glucose, POC 243(H) 70 - 100 mg/dL 11/12/2022 0:16 EDT [facility] HN LAB POC COMMENT (GLUCOSE) Test Performed by Nursing Services 11/12/2022 0:16 EDT [facility] Blood CAPILLARY BLOOD / Unknown 11/12/2022 0:15 EDT 11/12/2022 0:16 EDT Stephon Sosa POINT OF CARE TEST O RDERABLES Performing Organization Address City/[facility]/ZIP Co de Phone Number [facility] [address] [place] [address] * (ABNORMAL) POCT GLUCOSE, INTERFACED (11/11/2022 20:49 [...] Organization Address [facility] Co de Phone Number [facility] [address] [place] [address] * (ABNORMAL) TROPONIN I (11/11/2022 20:44 EDT) [facility] Troponin I (ng/mL) 32.500(H) <0.034 ng/mL [...] Organization Address [facility]/ZIP Co de Phone Number [facility] [address] [place] [id number] * (ABNORMAL) LACTIC ACID (11/11/2022 20:44 EDT) Lactic Acid 3.2(HH) <=2.0 mmol/L 11/11/2022 21:11 EDT [facility] Blood VENOUS BLOOD / Unknown Venipuncture / Unknown 11/11/2022 20:44 EDT 11/11/2022 20:49 EDT Miguel Gandhi MD CHEMISTRY & BLOOD GA S ORDERABLES [facility] [address] [place] [address] * (ABNORMAL) BASIC METABOLIC PANEL (BMP) (11/11/2022 20:44 EDT) Sodium 139 136 - 145 mmol/L 11/11/2022 21:09 [facility] Potassium 4.4 3.5 - 5.0 mmol/L 11/11/2022 21:09 [facility] Chloride 111(H) 96 - 110 mmol/L 11/11/2022 21:09 [facility] CO2 Total 19(L) 22 - 32 mmol/L 11/11/2022 21:09 [facility] Anion Gap 9 5 - 14 mmol/L 11/11/2022 21:09 [facility] Glucose 242(H) 70 - 100 mg/dl 11/11/2022 21:09 [facility] Calcium 8.8 8.5 - 10.5 mg/dL 11/11/2022 21:09 [facility] BUN 48(H) 10 - 26 mg/dL 11/11/2022 21:09 [facility] Creatinine 1.07(H) 0.52 - 1.04 mg/dL 11/11/2022 21:09 [facility] eGFR 56(L) >60 mL/min/1.73 m2 11/11/2022 21:09 [facility] Blood VENOUS BLOOD / Unknown Venipuncture / Unknown 11/11/2022 20:44 EDT 11/11/2022 20:49 EDT Miguel Gandhi MD CHEMISTRY & BLOOD GA S ORDERABLES [facility] [address] [place] [address] * (ABNORMAL) POCT GLUCOSE, INTERFACED (11/11/2022 18:26 EDT) Glucose, POC 233(H) 70 - 100 mg/dL 11/11/2022 18:27 EDT [facility] HN LAB POC COMMENT (GLUCOSE) Test Performed by Nursing Services 11/11/2022 18:27 T [facility] Blood CAPILLARY BLOOD / Unknown 11/11/2022 18:26 EDT 11/11/2022 18:27 EDT Stephon Sosa POINT OF CARE TEST O RDERABLES [facility] [address] [place] [address] * (ABNORMAL) COMPLETE BLOOD COUNT (11/11/2022 18:22 EDT) WBC 14.72(H) 4.00 - 12.40 K/cmm 11/11/2022 18:35 [facility] RBC 2.83(L) 3.86 - 5.04 M/cmm 11/11/2022 18:35 [facility] Hemoglobin 8.6(L) 11.6 - 15.2 g/dL 11/11/2022 18:35 [facility] HCT 24.7(L) 34.9 - 44.4 % 11/11/2022 18:35 [facility] MCV 87 81 - 98 fL 11/11/2022 18:35 [facility] MCH 30.4 26.7 - 33.3 pg 11/11/2022 18:35 [facility] MCHC 34.8 32.1 - 35.9 g/dL 11/11/2022 18:35 [facility] RDW-CV 14.2 <14.7 % 11/11/2022 18:35 [facility] RDW-SD 43.8 <50.4 fl 11/11/2022 18:35 [facility] PLT 194 141 - 377 K/cmm 11/11/2022 18:35 [facility] MPV 11.1 9.5 - 12.7 fL 11/11/2022 18:35 EDT [facility] Nucleated Red Blood Cells 1(H) <=0 /100WBC'S 11/11/2022 18:35 EDT [facility] Blood VENOUS BLOOD / Unknown IV Draw / Unknown 11/11/2022 18:22 EDT 11/11/2022 18:30 EDT Stephon Sosa HEMATOLOGY & PF4 ORD ERABLES Performing Organization Address City/[facility]/ZIP Co de Phone Number [facility] [address] [place] [address] * (ABNORMAL) LACTIC ACID (11/11/2022 18:22 EDT) Lactic Acid 3.9(HH) <=2.0 mmol/L 11/11/2022 19:02 EDT [facility] Blood VENOUS BLOOD / Unknown IV Draw / Unknown 11/11/2022 18:22 EDT 11/11/2022 18:30 EDT Stephon Sosa CHEMISTRY & BLOOD GA S ORDERABLES Performing Organization Address [facility] Co de Phone Number [facility] [address] [place] [address] * TRANSTHORACIC ECHO (TTE) COMPLETE W/DOPPLER W/CF [...] color Doppler.The study was interpreted by [facility]. Pertinent images and digital [...] EKG - 12/01/2022 17:21 EDT ? [facility] ? Test Date: ?2022-11-11 Pat Name: ? FORTUNATO TANNER ?Department: ?? Destin Maldonado ? Room: ? M407 Gender: ? Female ? Conveyor Attendant: ?? : ?1950 ? Requested By: LENA LAURENT Order Number: [id number] ? Reading MD: ?? GITA WESTBROOK MD ? Measurements Intervals ?[place] ? Rate: ? 83 ? P: ? MA: ? 0 ?QRS: ?12 QRSD: ? 117 [...] Note Gita Westbrook MD - 12/01/2022 [facility] Test Date: 2022-11-11 Pat Name: FORTUNATO HART Department: [place] [address] Room: [facility] Gender: Female Conveyor Attendant: : 1950 Requested By: LENA LAURENT Order Number: [id number] Reading MD: GITA WESTBROOK MD Measurements Intervals [place] Rate: 83 P: MA: 0 QRS: 12 QRSD: 117 T: 148 [...] HAY. Stephon Sosa CARDIAC ECG ORDERABL ES [facility] EKG [...] O RDERABLES [facility] [address] [place] [address] * (ABNORMAL) COMPREHENSIVE METABOLIC PANEL (CMP) (11/11/2022 13:24 EDT) Sodium 139 136 - 145 mmol/L 11/11/2022 15:07 [facility] Potassium 4.6 3.5 - 5.0 mmol/L 11/11/2022 15:07 [facility] Chloride 108 96 - 110 mmol/L 11/11/2022 15:07 [facility] CO2 Total 16(L) 22 - 32 mmol/L 11/11/2022 15:07 [facility] Glucose 298(H) 70 - 100 mg/dl 11/11/2022 15:07 [facility] BUN 50(H) 10 - 26 mg/dL 11/11/2022 15:07 [facility] Creatinine 1.17(H) 0.52 - 1.04 mg/dL 11/11/2022 15:07 [facility] eGFR 50(L) >60 mL/min/1.7 3m2 11/11/2022 15:07 [facility] Total Protein 5.3(L) 6.3 - 8.2 g/dL 11/11/2022 15:07 [facility] Albumin 3.2(L) 3.4 - 4.9 g/dL 11/11/2022 15:07 [facility] Alkaline Phosphatase 33(L) 38 - 126 U/L 11/11/2022 15:07 [facility] AST 101(H) 15 - 46 U/L 11/11/2022 15:07 [facility] ALT 49(H) <35 U/L 11/11/2022 15:07 [facility] Bilirubin, Total 0.7 <1.4 mg/dL 11/12/19 15:07 [facility] Calcium 8.7 8.5 - 10.5 [...] Organization Address [facility] Co de Phone Number [facility] [address] [place] [address] * HEPARIN LEVEL - UNFRACTIONATED HEPARIN (11/11/2022 [...] & PF4 ORD ERABLES Performing Organization Address City/[facility]/ZIP Co de Phone Number [facility] [address] [place] [address] * (ABNORMAL) HEMOGLOBIN A1C (11/11/2022 13:24 EDT) [...] Organization Address [facility] Co de Phone Number [facility] [address] [place] [address] * MRSA PCR (11/11/2022 13:24 EDT) MRSA/Staph aureus Result No Staphylococcus aureus detected by PCR 11/11/2022 21:13 EDT [facility] Swab ENTIRE NARIS / Unknown Swab / Unknown 11/11/2022 13:24 EDT 11/11/2022 14:06 EDT Stephon Sosa MICROBIOLOGY - GENER AL ORDERABLES Performing Organization Address [facility] Co de Phone Number [facility] [address] [place] [address] * (ABNORMAL) LACTIC ACID (11/11/2022 13:24 EDT) Lactic Acid 5.0(HH) <=2.0 mmol/L 11/11/2022 13:53 EDT [facility] Blood VENOUS BLOOD / Unknown IV Draw / Unknown 11/11/2022 13:24 EDT 11/11/2022 13:35 EDT Stephon Sosa CHEMISTRY & BLOOD GA S ORDERABLES Performing Organization Address [facility] de Phone Number [facility] [address] [place] [address] * MAGNESIUM (11/11/2022 13:24 EDT) Magnesium 2.0 1.7 - 2.8 mg/dL 11/11/2022 13:51 EDT [facility] Blood VENOUS BLOOD / Unknown IV Draw / Unknown 11/11/2022 13:24 EDT 11/11/2022 13:35 EDT Stephon Sosa CHEMISTRY & BLOOD GA S ORDERABLES Performing Organization Address [facility] de Phone Number [facility] [address] [place] [address] * (ABNORMAL) TROPONIN I (11/11/2022 13:24 EDT) [...] S ORDERABLES Performing Organization Address [facility] de Phone Number [facility] [address] [place] [address] * (ABNORMAL) PTT (11/11/2022 13:24 EDT) PTT 22(L) 26 - 37 secs 11/11/2022 14:03 EDT [facility] Blood VENOUS BLOOD / Unknown IV Draw / Unknown 11/11/2022 13:24 EDT 11/11/2022 13:35 EDT Stephon Sosa HEMATOLOGY & PF4 ORD ERABLES [facility] [address] [place] [address] * FIBRINOGEN (11/11/2022 13:24 EDT) Pathologist [facility] Fibrinogen 245 171 - 384 mg/dL 11/11/2022 14:01 EDT [facility] Blood VENOUS BLOOD / Unknown IV Draw / Unknown 11/11/2022 13:24 EDT 11/11/2022 13:35 EDT Stephon Sosa HEMATOLOGY & PF4 ORD ERABLES Performing Organization Address [facility] Co de Phone Number [facility] [address] [place] [address] * (ABNORMAL) PROTIME (11/11/2022 13:24 EDT) [facility] I.N.R. 1.2(H) 0.9 - 1.1 Ratio [...] & PF4 ORD ERABLES Performing Organization Address City/[facility] Co de Phone Number [facility] [address] [place] [address] * (ABNORMAL) COMPLETE BLOOD COUNT AND DIFFERENTIAL (11/11/2022 13:24 EDT) WBC 14.11(H) 4.00 - 12.40 K/cmm 11/11/2022 14:11 EDT [facility] RBC 2.96(L) 3.86 - 5.04 M/cmm 11/11/2022 14:11 [facility] Hemoglobin 9.0(L) 11.6 - 15.2 g/dL 11/11/2022 14:11 [facility] HCT 25.9(L) 34.9 - 44.4 % 11/11/2022 14:11 [facility] MCV 88 81 - 98 fL 11/11/2022 14:11 [facility] MCH 30.4 26.7 - 33.3 pg 11/11/2022 14:11 [facility] MCHC 34.7 32.1 - 35.9 g/dL 11/11/2022 14:11 [facility] RDW-CV 13.9 <14.7 % 11/11/2022 14:11 [facility] RDW-SD 43.2 <50.4 fl 11/11/2022 14:11 [facility] PLT 178 141 - 377 K/cmm 11/11/2022 14:11 [facility] MPV 11.4 9.5 - 12.7 fL 11/11/2022 14:11 [facility] % Neutrophils 74.8 % 11/11/2022 14:11 [facility] % Lymphocytes 17.2 % 11/11/2022 14:11 [facility] % Monocytes 6.4 % 11/11/2022 14:11 [facility] % Eosinophils 0.0 % 11/11/2022 14:11 [facility] % Basophils 0.1 % 11/11/2022 14:11 [facility] % Immature Grans 1.5 % 11/12/19 14:11 [facility] Absolute Neutrophils 10.55(H) 2.20 - 8.85 K/cmm 11/11/2022 14:11 [facility] Absolute Lymphocytes 2.42 1.09 - 3.30 K/cmm 11/11/2022 14:11 [facility] Absolute Monocytes 0.91(H) 0.10 - 0.80 K/cmm 11/11/2022 14:11 T [facility] Absolute Eosinophils 0.00(L) 0.03 - 0.61 K/cmm 11/11/2022 14:11 T [facility] ABS Basophils 0.02 0.01 - 0.11 K/cmm 11/11/2022 14:11 [facility] Absolute Immature Grans 0.21(H) 0.00 - 0.06 K/cmm 11/11/2022 14:11 T [facility] Type of Differential: Auto 11/11/2022 14:11 [facility] Blood VENOUS BLOOD / Unknown IV Draw / Unknown 11/11/2022 13:24 EDT 11/11/2022 13:35 EDT Stephon Sosa PACKAGES & DNA PROBE ORDERABLES Performing Organization Address [facility] Co de Phone Number [facility] [address] [place] [address] * TYPE AND SCREEN (11/11/2022 13:24 EDT) ABO A 11/11/2022 17:07 EDT [facility] Rh Factor Negative 11/11/2022 17:07 T [facility] Antibody Screen Negative 11/11/2022 17:07 [facility] Specimen Expires: 11/14/2022 @ 23:59 11/11/2022 17:07 [facility] Blood VENOUS BLOOD / Unknown IV Draw / Unknown 11/11/2022 13:24 EDT 11/11/2022 13:38 EDT Stephon Sosa BLOOD BANK TESTS Performing Organization Address City/[facility] Co de Phone Number [facility] [address] [place] [address] documented in this encounter Visit Diagnoses Diagnosis Gastrointestinal hemorrhage, unspecified gastrointestinal hemorrhage type Syncope, unspecified syncope type NSTEMI (non-ST elevated myocardial infarction) ([facility]) Acute myocardial infarction, subendocardial infarction, episode of care unspecified Duodenal erosion Duodenal ulcer, unspecified as acute or chronic, without hemorrhage, perforation, or obstruction Esophagitis Esophagitis, unspecified Acute blood loss anemia Acute posthemorrhagic anemia Hypertrophic cardiomyopathy (HCC-CMS) Other hypertrophic cardiomyopathy NSVT (nonsustained ventricular tachycardia) ([facility]) Paroxysmal ventricular tachycardia GI bleed Hemorrhage of gastrointestinal tract, unspecified Syncope Syncope and collapse NSTEMI (non-ST elevated myocardial infarction) ([facility]) Acute myocardial infarction, subendocardial infarction, episode of care unspecified Duodenal erosion Duodenal ulcer, unspecified as acute or chronic, without hemorrhage, perforation, or obstruction Esophagitis Esophagitis, unspecified Acute blood loss anemia Acute posthemorrhagic anemia NSTEMI (non-ST elevated myocardial infarction) ([facility]) Acute myocardial infarction, subendocardial infarction, episode of care unspecified Hypertrophic cardiomyopathy ([facility]) Other hypertrophic cardiomyopathy NSVT (nonsustained ventricular tachycardia) ([facility]) Paroxysmal ventricular tachycardia documented in this [...] 10/20 documented in this encounter Care Teams Certified Master Safe Technician Relationship Specialty Start Date End Date Bryant Crain MD [address] [address] PCP - General 05/04/15 05/17/23 Carlos Macario NP [address] [place] [address] [id number] Consulting Clinician Cardiovascular Disease 09/14/21 documented as of this encounter
--- OUTSIDE RECORDS SUMMARY | 2024-01-14 11:10 | XMS_ITS | Encounter Summary ---
Author Organization [facility] Address [address] [place] [address] Care Team Providers Care Yoker Name Role Phone Bryant Crain MD Primary Care Provider [phone] Carlos Ha CLOCK MECHANIC Unavailable [phone] Encounter Details Date Type Department Care Team (Late st Contact Info) Description 11/20/2022 9:45 EDT Phlebotomy Only [facility] - Outpatient Phlebotomy Drawing [address] [place] [address] Lab, [facility] Op Phlebotomy Gastrointestinal hemorrhage, unspecified gastrointestinal hemorrhage [...] 03/08/2024 9:30 EDT Ancillary Procedure [facility] Cardiology - [place] [address] [place] [address] 03/08/2024 10:15 EDT Ancillary Procedure [facility] Cardiology [address] [place] [address] 04/05/2024 10:00 EDT Ancillary Procedure [facility] Cardiology Clinic [address] [place] [address] [phone] 04/05/2024 10:00 EDT Office Visit [facility] Cardiology Clinic [address] [place] [address] [phone] Carlos Ha, RAHEEM [address] [place] [address]-[address] [place] [address] documented as of this encounter [...] 34(L) 37 - 170 ??g/dL [facility]/20[facility]22 [facility] Iron Binding Capacity 315 240 - 450 ??g/dL 11/20/2022 15:41 [facility] Transferrin Saturation 11(L) 15 - 45 % 11/20/2022 15:41 [facility] Blood VENOUS BLOOD / Unknown Venipuncture / Unknown 11/20/2022 10:02 EDT 11/20/2022 10:44 EDT Carlos Ha NP CHEMISTRY & BLOOD GA S ORDERABLES Performing Organization Address City/State/[facility] Co de Phone Number [facility] [address] [place] [address] * (ABNORMAL) BASIC METABOLIC PANEL (BMP) (11/20/2022 10:02 EDT) Pathologist [facility] Sodium 139 136 - 145 mmol/L 11/20/2022 11:14 [facility] Potassium 4.8 3.5 - 5.0 mmol/L 11/20/2022 11:14 [facility] Chloride 108 96 - 110 mmol/L 11/20/2022 11:14 [facility] CO2 Total 23 22 - 32 mmol/L 11/20/2022 11:14 [facility] Anion Gap 8 5 - 14 mmol/L 11/20/2022 11:14 [facility] Glucose 177(H) 70 - 100 mg/dl 11/20/2022 11:14 [facility] Calcium 10.0 8.5 - 10.5 mg/dL 11/20/2022 11:14 [facility] BUN 11 10 - 26 mg/dL 11/20/2022 11:14 [facility] Creatinine 0.84 0.52 - 1.04 mg/dL 11/20/2022 11:14 [facility] eGFR 75 >60 mL/min/1.73 m2 11/20/2022 11:14 [facility] Blood VENOUS BLOOD / Unknown Venipuncture / Unknown 11/20/2022 10:02 EDT 11/20/2022 10:44 EDT Carlos L Dilcia CLOCK MECHANIC CHEMISTRY & BLOOD GA S ORDERABLES Performing Organization Address City/State/[facility] Co de Phone Number [facility] [address] [place] [address] * (ABNORMAL) COMPLETE BLOOD COUNT AND DIFFERENTIAL (11/20/2022 10:02 EDT) WBC 7.59 4.00 - 12.40 K/cmm 11/20/2022 10:39 [facility] RBC 2.96(L) 3.86 - 5.04 M/cmm 11/20/2022 10:39 [facility] Hemoglobin 8.7(L) 11.6 - 15.2 g/dL 11/20/2022 10:39 [facility] HCT 26.9(L) 34.9 - 44.4 % 11/20/2022 10:39 [facility] MCV 91 81 - 98 fL 11/20/2022 10:39 [facility] MCH 29.4 26.7 - 33.3 pg 11/20/2022 10:39 [facility] MCHC 32.3 32.1 - 35.9 g/dL 11/20/2022 10:39 [facility] RDW-CV 14.8(H) <14.7 % 11/20/2022 10:39 [facility] RDW-SD 47.4 <50.4 fl 11/20/2022 10:39 [facility] PLT 393(H) 141 - 377 K/cmm 11/20/2022 10:39 [facility] MPV 11.0 9.5 - 12.7 fL 11/20/2022 10:39 [facility] % Neutrophils 62.6 % 11/20/2022 10:39 [facility] % Lymphocytes 27.1 % 11/20/2022 10:39 [facility] % Monocytes 7.4 % 11/20/2022 10:39 [facility] % Eosinophils 2.0 % 11/20/2022 10:39 [facility] % Basophils 0.5 % 11/20/2022 10:39 [facility] % Immature Grans 0.4 % 11/21/19 10:39 [facility] Absolute Neutrophils 4.75 2.20 - 8.85 K/cmm 11/20/2022 10:39 [facility] Absolute Lymphocytes 2.06 1.09 - 3.30 K/cmm 11/20/2022 10:39 [facility] Absolute Monocytes 0.56 0.10 - 0.80 K/cmm 11/20/2022 10:39 [facility] Absolute Eosinophils 0.15 0.03 - 0.61 K/cmm 11/20/2022 10:39 [facility] ABS Basophils 0.04 0.01 - 0.11 K/cmm 11/20/2022 10:39 [facility] Absolute Immature Grans 0.03 0.00 - 0.06 K/cmm 11/20/2022 10:39 [facility] Type of Differential: Auto 11/20/2022 10:39 [facility] Blood VENOUS BLOOD / Unknown Venipuncture / Unknown 11/20/2022 10:02 EDT 11/20/2022 10:35 EDT Carlos Ha NP PACKAGES & DNA PROBE ORDERABLES [facility] [address] [place] [address] documented in this encounter Visit Diagnoses Diagnosis Gastrointestinal hemorrhage, unspecified gastrointestinal hemorrhage type Duodenal erosion Duodenal ulcer, unspecified as acute or chronic, without hemorrhage, perforation, or obstruction Esophagitis Esophagitis, unspecified Essential hypertension Unspecified essential hypertension documented in this encounter Care Teams Yoker Relationship Specialty Start Date End Date Bryant Crain MD [address] [place], [place] [phone] PCP - General 05/04/15 05/17/23 Carlos Ha NP [address] [place] [address] [address] [place] [phone] Consulting Clinician Cardiovascular Disease 09/14/21 documented as of this encounter
--- OUTSIDE RECORDS SUMMARY | 2024-01-14 11:10 | XMS_ITS | Encounter Summary ---
Author Organization [facility] Address [address] [place] [address] Care Team Providers Care Associate Material Handler Name Role Phone Bryant Crain MD Primary Care Provider [phone] Carlos Ha BUILDING MATERIALS SALES ATTENDANT Unavailable [phone] Encounter Details Date Type Department Care [...] Description 03/08/2024 9:30 EDT Ancillary Procedure [facility] Cardiology - [place] [address] [place] [address] 03/08/2024 10:15 EDT Ancillary Procedure [facility] Cardiology - [facility] [address] [facility] [place] [address] 04/05/2024 10:00 EDT Ancillary Procedure [facility] Cardiology Clinic [address] [place] [address] [phone] 04/05/2024 10:00 EDT Office Visit [facility] Cardiology Clinic [address] [place] [address] Carlos Ha NP [address] [place] [phone] documented as of this encounter Visit Diagnoses Not on filedocumented in this encounter Care Teams Associate Material Handler Relationship Specialty Start Date End Date Bryant Crain MD [address] [place], [place] [phone] PCP - General 05/04/15 05/17/23 Carlos Ha NP [address] [place] [phone] Consulting Clinician Cardiovascular Disease 09/14/21 documented as of this encounter
--- OUTSIDE RECORDS SUMMARY | 2024-01-14 11:10 | XMS_ITS | Encounter Summary ---
Author Organization [facility] Address [address] [place] [address] Care Team Providers Care Teacher Aide Name Role Phone Bryant Crain MD Primary Care Provider [phone] Carlos Ha GUEST RELATIONS MANAGER Unavailable [phone] Encounter Details Date Type Department Care Team (Late st Contact Info) Description 11/15/2022 Orders Only [facility] Radiology - [facility] [address] [place] [address] Stanislav Erickson MD [address] [facility], Level [address] [place] [address] Social History Tobacco Use Types [...] Procedure [facility] Cardiology - [address] [place], [place] [phone] 03/08/2024 10:15 EDT Ancillary Procedure [facility] Cardiology [address] [place] [address] 04/05/2024 10:00 EDT Ancillary Procedure [facility] Cardiology Clinic [address] [place] [phone] 04/05/2024 10:00 EDT Office Visit [facility] Cardiology Clinic [address] [place] [address] [phone] Carlos Ha NP [address] [place] [address] [address] [place] [address] documented as of this encounter Visit Diagnoses Not on filedocumented in this encounter Care Teams Teacher Aide Relationship Specialty Start Date End Date Bryant Crain MD [address] [place], [place] [phone] PCP - General 05/04/15 05/17/23 Carlos Ha NP [address] [place] [address] [address] [place] [address] Consulting Clinician Cardiovascular Disease 09/14/21 documented as of this encounter
--- OUTSIDE RECORDS SUMMARY | 2024-01-14 11:10 | XMS_ITS | Encounter Summary ---
Author Organization [facility] Address [address] [place] [address] Care Team Providers Care Delivery Aide Name Role Phone Bryant Crain MD Primary Care Provider [phone] Carlos Ha PARTS AND SERVICE MANAGER Unavailable [phone] Reason for Referral * Consult (48 Hrs (Urgent)) - Closed Specialty Diagnoses / Procedures Referred By Contac t Referred To Contact Cardiology Diagnoses Paroxysmal atrial fibrillation (HCC-CMS) Ventricular tachycardia (HCC-CMS) Hypertrophic cardiomyopathy (HCC-CMS) AVB (atrioventricular block) Elevated troponin Carlos Ha NP [address] [facility] [address] [place] [address] Randy Sebastian MD [address] [place] [address] Referral ID Status Reason Start Date Expiration Date V isits Requested Visits Authorized [id number] Closed Specialty Services Required 11/24/2022 1 1 [...] ventricular tachycardia) (HCC-CMS) Shawna Terry MD MPH [address] [place] [phone] [facility] Cardiology Clinic [address] [place] [address] Referral ID Status Reason Start Date Expiration Date Visits Requested Visits Authorized [id number] Authorization Not Required Specialty Services Required 3 1 1 Encounter Details Date Type Department Care Team (Latest Contact Info) Description 11/20/2022 8:30 EDT Office Visit [facility] [address] [place] [address] Carlos Ha NP [address] [place] [address] [address] [place] [address] Ventricular tachycardia (HCC-CMS) (Primary Dx); [...] inpatient follow-up visit. She presented to [facility] on 11/10 with complaints of fatigue, chest [...] and octreotide. She was then transferred to [facility]. Repeat EDG showed esophagitis, scattered petechia [...] was cancelled as she presented to [facility] ED on the day it was scheduled. Cardiology consult by Dr. Sebastian while she was hospitalized given her multiple acute cardiac issues. Echo with findings consistent with HCM. Ischemic work up could not be pursued given her anemia with acute GIB. [facility] recommended to be considered given her chest [...] not much more activity due to fatigue [facility] Cryptogenic stroke (left MCA) 2017 with Medtronic loop 2017. ASA recently started during admission at [facility] 08/2022 Paroxysmal atrial fibrillation (2 hr episode noted on monitor 2018.Started on Eliquis. No further episodes noted) NSVT (1 episode August 2019 with negative MPI) AVB type I and II - noted on policy writer typist during recent admission Hypertension, Hyperlipidemia (LDL 65 in 2021: She has been intolerant to multiple statins now on REPATHA) DM2 (A1C 7.1) CKD III Kidney stone 11/02 passed Duodenal ulcer and esophagitis with acute GIB admit to [facility] 11/11-11/14. D/C on Protonix. ?Parkinson's Disease Lives in [place] with spouse Has three grown children She [...] 06/24 needle ??? blood glucose meter by [facility] (non-drug; combo route) route [...] glucose scanning reader (FREESTYLE VICKY 2 READER) [facility] 1 Device by [facility] (non-drug; comboroute) route daily. [...] ??? lancets/blood glucose strips ([facility]) -to test blood sugar - twice [...] ??? Propoxyphene N-Acetaminophen Other reaction(s): Hallucinations ??? Xafkpqx-Xok-Utv Reductase Inhibitors ??? Trulicity [Dulaglutide] Gi Side [...] recent NSTEMI awaiting ischemic work up at [facility] which couldn't be completed during recent admission due to acute GIB. Negative MPI 2019. [facility] recommended and will be planned when patient stable. Will need to consider pt ability to take further antiplatelet agents if needed 2. HCM severe asymmetric hypertrophy of LV with septal thickness 1.9 cm. Work up includes MCOT which she will start today. Awaiting MRI at [facility] 12/31. Spoke with Dr. Sebastian at [facility] who saw her in consultation. Referral sent to have him follow up with her as outpatient. Awaiting appointment. Low dose Metoprolol started while at [facility] -Consult pending with Dr. Sebastian with the Advanced Heart Failure Team -cMRI 12/31 3. NSVT. Currently wearing MCOT. MRI pending. Awaiting ischemic work up at [facility] -MCOT in process with known brief [...] Info) Description 03/08/2024 9:30 EDT Ancillary Procedure [facility] Cardiology - [facility] [address] [place] [address] 03/08/2024 10:15 EDT Ancillary Procedure [facility] Cardiology - [place] [address] [place] [address] 04/05/2024 10:[address] [facility] Cardiology Clinic [address] [place] [address] 04/05/2024 10:[address] [facility] Cardiology Clinic [address] [place] [address] Carlos Ha NP [address] [place] [address]-[address] [place] [address] Scheduled Referrals Name Type Priority [...] EDT) 11/23/2022 12:5 7 EDT Scan 2 Engineer Remote Control Diesel PROCEDURE/MINOR CROW GICAL ORDERABLES * EKG 12-LEAD (11/20/2022 10:21 EDT) 11/20/2022 10:[address] [facility] - 11/22/2022 12:29 EDT ? CVC ? Test Date: ?2022-11-20 Pat Name: ? JOANNA GAUTAM ?Department: ? Room: ? Gender: ? Female ? Supervisor Game [employer]: ?? ES : ?1950 ? Requested By: AMIRAH Jimenez Order Number: [id number] ? Oleksandr HAY: ?? JASON PAUL MD ? Measurements Intervals ?[place] ? Rate: ? 72 ? P: ? MA: ? 312 ?QRS: ?-13 QRSD: ? 116 [...] Name: JOANNA HART Department: Room: Gender: Female Supervisor [employer]: ES : 1950 Requested By: AMIRAH Jimenez Order Number: [id number] Reading MD: JASON PAUL MD Measurements Intervals [place] Rate: 72 P: MA: 312 QRS: -13 QRSD: 116 T: 153 [...] CARDIAC ECG ORDERABL ES Performing Organization Address City/[facility]/ZIP Co de Phone Number [facility] * (ABNORMAL) TRANSFERRIN SATURATION (11/20/2022 10:02 EDT) Iron 34(L) 37 - 170 ??g/dL 11/20/2022 15:41 EDT [facility] Iron Binding Capacity 315 240 - 450 ??g/dL 11/20/2022 15:41 EDT [facility] Transferrin Saturation 11(L) 15 - 45 % 11/20/2022 15:41 EDT [facility] Blood VENOUS BLOOD / Unknown Venipuncture / Unknown 11/20/2022 10:02 EDT 11/20/2022 10:44 EDT Carlos Ha NP CHEMISTRY & BLOOD GA S ORDERABLES Performing Organization Address [facility]/ZIP Co de Phone Number [facility] [address] [place] [address] * (ABNORMAL) BASIC METABOLIC PANEL (BMP) (11/20/2022 10:02 EDT) Sodium 139 136 - 145 mmol/L 11/20/2022 11:14 EDT [facility] Potassium 4.8 3.5 - 5.0 mmol/L 11/20/2022 11:14 EDT [facility] Chloride 108 96 - 110 mmol/L 11/20/2022 11:14 EDT [facility] CO2 Total 23 22 - 32 mmol/L 11/20/2022 11:14 EDT [facility] Anion Gap 8 5 - 14 mmol/L 11/20/2022 11:14 EDT [facility] Glucose 177(H) 70 - 100 mg/dl 11/20/2022 11:14 [facility] Calcium 10.0 8.5 - 10.5 mg/dL 11/20/2022 11:14 [facility] BUN 11 10 - 26 mg/dL 11/20/2022 11:14 [facility] Creatinine 0.84 0.52 - 1.04 mg/dL 11/20/2022 11:14 [facility] eGFR 75 >60 mL/min/1.73 m2 11/20/2022 11:14 [facility] Blood VENOUS BLOOD / Unknown Venipuncture / Unknown 11/20/2022 10:02 EDT 11/20/2022 10:44 EDT Carlos Ha NP CHEMISTRY & BLOOD GA S ORDERABLES Performing Organization Address City/State/[facility] Co de Phone Number [facility] [address] [place] [address] * (ABNORMAL) COMPLETE BLOOD COUNT AND DIFFERENTIAL (11/20/2022 10:02 EDT) WBC 7.59 4.00 - 12.40 K/cmm 11/20/2022 10:39 [facility] RBC 2.96(L) 3.86 - 5.04 M/cmm 11/20/2022 10:39 [facility] Hemoglobin 8.7(L) 11.6 - 15.2 g/dL 11/20/2022 10:39 [facility] HCT 26.9(L) 34.9 - 44.4 % 11/20/2022 10:39 [facility] MCV 91 81 - 98 fL 11/20/2022 10:39 [facility] MCH 29.4 26.7 - 33.3 pg 11/20/2022 10:39 [facility] MCHC 32.3 32.1 - 35.9 g/dL 11/20/2022 10:39 [facility] RDW-CV 14.8(H) <14.7 % 11/20/2022 10:39 [facility] RDW-SD 47.4 <50.4 fl 11/20/2022 10:39 [facility] PLT 393(H) 141 - 377 K/cmm 11/20/2022 10:39 [facility] MPV 11.0 9.5 - 12.7 fL 11/20/2022 10:39 [facility] % Neutrophils 62.6 % 11/20/2022 10:39 [facility] % Lymphocytes 27.1 % 11/20/2022 10:39 [facility] % Monocytes 7.4 % 11/20/2022 10:39 [facility] % Eosinophils 2.0 % 11/20/2022 10:39 [facility] % Basophils 0.5 % 11/20/2022 10:39 [facility] % Immature Grans 0.4 % 11/21/19 10:39 [facility] Absolute Neutrophils 4.75 2.20 - 8.85 K/cmm 11/20/2022 10:39 [facility] Absolute Lymphocytes 2.06 1.09 - 3.30 K/cmm 11/20/2022 10:39 [facility] Absolute Monocytes 0.56 0.10 - 0.80 K/cmm 11/20/2022 10:39 [facility] Absolute Eosinophils 0.15 0.03 - 0.61 K/cmm 11/20/2022 10:39 [facility] ABS Basophils 0.04 0.01 - 0.11 K/cmm 11/20/2022 10:39 [facility] Absolute Immature Grans 0.03 0.00 - 0.06 K/cmm 11/20/2022 10:39 [facility] Type of Differential: Auto 11/20/2022 10:39 [facility] Blood VENOUS BLOOD / Unknown Venipuncture / Unknown 11/20/2022 10:02 EDT 11/20/2022 10:35 EDT Carlos Ha NP PACKAGES & DNA PROBE ORDERABLES [facility] [address] [place] [address] documented in this encounter Visit Diagnoses Diagnosis [...] unspecified documented in this encounter Care Teams Delivery Aide Relationship Specialty Start Date End Date Bryant Crain MD [address] [place], [place] [phone] PCP - General 05/04/15 05/17/23 Carlos Ha NP [address] [facility] [address]OB[address] [place] [address] Consulting Clinician Cardiovascular Disease 09/14/21 documented as of this encounter
--- OUTSIDE RECORDS SUMMARY | 2024-01-14 11:10 | XMS_ITS | Encounter Summary ---
Author Organization [facility] Address [address] [place] [address] Care Team Providers Care Committee Member Name Role Phone Bryant Crain MD Primary Care Provider [phone] Carols Ha MANAGER MEDICAL DEVICE Unavailable [phone] Reason for Visit * Reason Onset Date Comments Results 11/23/2022 Encounter Details Date Type Department Care Team (Late st Contact Info) Description 11/23/2022 Telephone [facility] Cardiology - [address] [place] [address] Nicole Acosta MD Results Social [...] to monitor. NICOLE ACOSTA MD 11/23/2022 11:11 Certified Energy Manager documented in this encounter Plan of Treatment Upcoming Encounters Date Type Department Care Team (Late st Contact Info) Description 03/08/2024 9:30 EDT Ancillary Procedure [facility] Cardiology - [place] [address] [place] [address] 03/08/2024 10:15 EDT Ancillary Procedure [facility] Cardiology - [facility] [place] [address] 04/05/2024 10:00 EDT Ancillary Procedure [facility] Cardiology Clinic [address] [place] [phone] 04/05/2024 10:00 EDT Office Visit [facility] Cardiology Clinic [address] [place] [address] [phone] Carlos Ha, RAHEEM [address] [place] [address] [address] [place] [address] documented as of this encounter Visit Diagnoses Not on filedocumented in this encounter Care Teams Committee Member Relationship Specialty Start Date End Date Bryant Crain MD [address] [place], [place] [phone] PCP - General 05/04/15 05/17/23 Carlos Ha NP [address] [place] [address] [address] [place] [address] Consulting Clinician Cardiovascular Disease 09/14/21 documented as of this encounter
--- OUTSIDE RECORDS SUMMARY | 2024-01-14 11:10 | XMS_ITS | Encounter Summary ---
Author Organization [facility] Address [address] [place] [address] Care Team Providers Care Vehicle Window Tinter Name Role Phone Bryant Crain MD Primary Care Provider [phone] Carlos Ha SUPERVISOR [employer] Unavailable [phone] Reason for Visit * Reason Comments Shortness [...] (Routine) Specialty Diagnoses / Procedures [facility]erred To Contact Diagnoses Acute heart failure, unspecified heart failure type ([facility]) Acute on chronic heart failure with preserved ejection fraction (HFpEF) ([facility]) Referral ID Status Reason Start Date Expiration Date Visits Re quested Visits Authorized [id number] 12/01/2022 12/03/2022 1 1 Encounter Details Date Type Department Care Team (Latest Contact Info) Description 12/01/2022 12:29 EDT - 12/03/2022 21:39 EDT Hospital Encounter [facility] Medical / Surgical Department [address] [place], [place] [id number] Micah Camarillo MD [address] [place] [address] Estefanía Cleaning MD [address] [place] [id number] Justus Liang MD MPH [address] [place] [address] Archie Lux MD [address] [place] [address] Acute heart failure, unspecified heart [...] diastolic failure Acute hypoxemic respiratory failure Consults: [facility] cardiology Procedures: none HPI/ Hospital Course: 72-year-old female with paroxysmal atrial fibrillation on Eliquis, aortic stenosis, second-degree type I heart block, ventricular tachycardia, CVA, hypertension, type 2 diabetes, Parkinson's. Recent [facility] admission for syncope, chest pain found to [...] peaked at 0.11. Cardiology recommended transfer to [facility] for cardiac catheterization. She was not started on a heparin drip as she was already anticoagulatedon apixaban. Her chest discomfort resolved and her dyspnea improved. However, she did have an episode of chest pain on the morning of December 03 that resolved with administration of nitroglycerin. She was transferred to [facility] in stable medical condition on [...] hyperglycemia, with long-term current use of insulin ([facility]) [facility] [place]; combo route) route daily. Dispense one [...] 1 Tablet by mouth 2 times daily. CaterCowTOUCH ULTRA BLUE TEST STRIP test strips TEST [...] Disposition Code Departure Means Destination Comment s [facility] (Acute Care Facility) documented in this encounter Progress Notes * Juli Martinez RN - 12/03/2022 9974 EDT DC Destination and with who: [facility] If Group Home, Level of Care: n/a Client and/or Family Aware and in Agreement with the dc plan: Client in agreement with DC plan. Denies concerns. IM Issued: n/a Community Service Referrals and Agency: n/a Was the Agency/Person Notified, Who, Contact Info?: n/a Any New Equipment/What Type and from where?: n/a Mode of Transportation and Agency: [facility] ems. * Archie Lux MD - 12/03/2022 1509 EDT Inpatient Internal Medicine Progress Note Patient Name: Joanna Hart Room: [address] [place] [address] Date of Service: 12/03/22 15:09 CC: shortness of breath 24 Hour Events: No major events overnight. Patient is awaiting transfer to [facility] Subjective: Patient had an uneventful [...] hyperlipidemia, DM2, and Parkinson's. Recently admitted to [facility] with chest pain and found to have a GI bleed due to erosion in the duodenal bulb and an NSTEMI with troponin peak of 34. She presented 12/01 with shortness of breath, noted to havea heart failure exacerbation and NSTEMI. Her troponin peaked at 0.11 with cardiology recommending transfer to [facility] for cardiac catheterization. Plan: Acute exacerbation of [...] already on apixaban - Awaiting transfer to [facility] for cardiac catheterization Acute hypoxemic [...] prior to admission apixaban Disposition: -Transfer to [facility] once bed available Greater than [...] during shift. Pt to be transferred to [facility] when bed becomes available. Pt went for US for RLE today. Serial trops continued. Up with standby assist and walker to bathroom. Medicated per AUG. Safety measures in place. Call light within reach. * Suad Silveira - 12/02/2022 1330 EDT Cm Note - Patient is awaiting transfer to [facility]. CM to follow. * Suad Silveira - 12/02/2022 0957 EDT Initial Case Management/Social Work Assessment and Discharge Plan/Readmission Risk Assessment REASON FOR ADMISSION: Acute heart failure, unspecified heart failure type (HCC- CMS) ([facility]) Patient understands reason for admission: Yes PATIENT INFO VERIFIED: PCP Type of housing (single family, condo, apartment, intermediate, single room occupancy, [facility] funded hotel room, group fci) - Home Who does the patient live with? Does the patient have access to their own bedroom/bathroom/kitchen - or is it shared with others? Yes Name of housing complex (ex [facility], [facility], etc)- n/a Housing Authority/Managing Organization - n/a Community Care Providers (case monitor, [facility] nurse, etc) name and contact information- [...] Type of Healthcare Directive: Durable power of real estate attorney for health care, Health care treatment directive Copy in Chart: Yes, new copy in paper chart @ [facility] Information Provided on Healthcare Directives: No Information on Healthcare Directives Requested: No DIRECTIVES FOR FINANCES: Directive For Finances: No TRANSPORTATION: Transportation: Family Transportation Additional Details: vs. ambulance to [facility] Final Discharge Destination: Home Patient expects to be discharged to: Home CULTURAL, PENTECOSTALISM and/or LANGUAGE factors affecting health care/discharge planning: Spiritual/Cultural Requests: None Insurance Information: Medical Insurance: Yes Type of insurance: Medicare ([facility]) Referred to patient financial services: No [...] Home Health Services: None DME Provider: Pharmacy: [facility] [address] [address] [facility] [address] Home Health: Other: [facility]: Patients PCP, pharmacy and demographics verified. Patient lives withher in a one story house with one step to enter. Patient has an advanced directive on file listing her as medical agent. Patient utilizes a walker and no other DME's. Patient is expected to transfer to [facility] today for a heart cath. [...] heart failure, unspecified heart failure type (HCC-CMS) ([facility]). 24 Hour Events: ?? [...] LAB POC COMMENT (GLUCOSE) Test Performed in [address] [place] [address] POCT GLUCOSE, INTERFACED Result Value Ref Range Glucose, POC 176 (H) 70 - 100 mg/dL LAB POC COMMENT (GLUCOSE) Test Performed in [address] [place] [address] TROPONIN I Result Value Ref Range Troponin [...] Units Date/Time Complete Blood Count and Differential [[id number]] Collected: 12/02/2244 Lab Status: In process Specimen: [...] and Parkinson's who was recently admitted at [facility] with chest pain and found to have a GI bleed due to erosion in the duodenal bulb and an NSTEMI with troponin peak of 34 who presented with shortness of breath and has been admitted for heart failure exacerbation and NSTEMI. Her troponin trended up overnight and cardiology today recommending transfer to [facility] for cardiac catheterization. Plan Chronic heart failure with preserved ejection fraction with acute exacerbation - Strict I's and O's, daily weights - Furosemide 20 twice daily IV - Echocardiogram pending. NSTEMI - Type I versus type II - Trend troponin to peak, monitor telemetry, trend EKG - Obtain echocardiogram - Holding on aspirin and heparin currently. Patient does have RIPRAP WORKER apixaban. - Transfer to [facility] for cardiac catheterization. Acute hypoxemic respiratory failure [...] Continuing therapeutic apixaban Discharge Plan: Transfer to [facility] anticipated 24 to 48 hours CODE STATUS: [...] monitored with a Zio patch, admitted at [facility] 11/11/2022 through 11/14/2022 after presenting with syncope [...] and admission with consideration of transfer to [facility] for left heart catheterization dependingon her clinical course. Of note, she resumed her apixaban for atrial fibrillation on Wednesday the under the guidance of her PCP and has not had clinically apparent bleeding since that time. Review of Systems 12 point ROS performed and negative unless otherwise noted above Past Medical History: Diagnosis Date ??? Cerebrovascular accident (CVA) ([facility]) 06/01/2019 ??? Diabetes mellitus, type 2 ([facility]) 01/26/2011 On metformin On metformin ??? Essential hypertension 06/01/2019 ??? Mixed hyperlipidemia 06/05/2019 ??? Nonrheumatic aortic valve stenosis 06/01/2019 ??? Paroxysmal atrial fibrillation ([facility]) ([facility]) 06/01/2019 History reviewed. No [...] /4 needle ??? blood glucose meter by physicians [...] ??? lancets/blood glucose strips ([facility]) -to test blood sugar - twice daily [...] ??? Propoxyphene N-Acetaminophen Other reaction(s): Hallucinations ??? Jkjmgzm-Cgr-Vyh Reductase Inhibitors ??? Trulicity [Dulaglutide] Gi Side [...] monitored with a Zio patch, admitted at [facility] 11/11/2022 through 11/14/2022 after presenting with syncope [...] Of note she is continued on her RIPRAP WORKER apixaban. #Recent GI bleed -Continue PPI BID -Stable anemia and no clinical evidence of active bleeding even though she has resumed apixaban #New asymmetric right greater than left lower extremity edema -Given recent lapse in Eliquis, ordered right lower extremity duplex ultrasound to exclude DVT, pending #Type 2 diabetes complicated by neuropathy -Continue RIPRAP WORKER Lantus daily -SSI -RIPRAP WORKER gabapentin for neuropathy -Holding RIPRAP WORKER metformin and Ozempic #Atrial fibrillation -Continue RIPRAP WORKER metoprolol -Continue RIPRAP WORKER apixaban VTE Prophylaxis -RIPRAP WORKER Eliquis Code: Full Discharge Plan -Pending clinical [...] Acute heart failure, unspecified heart failure type ([facility]) ([facility]) Disposition: Admitted Chief complaint: [...] Care - Deepali Phelps RN - 12/03/2022 4319 EDT A&O x3. On telemetry. Denies chest pain or any pain in general. HS finger stick was 207. [place] to [place] [id number] at [facility]. Transported via EMS. * Plan of Care [...] today even if she got a bedat [facility]. Tele monitoring in place. Tele has been fluctuating today with 1st degree AV block, bundle branch block, and mobitz type I. Bed available for patient at [facility] this evening. [facility] will be transporting the patient later [...] givenwith good effect. Tele continued. NPO at MT 12/03. Assessment as documented. See flowsheets. See [...] No C/O pain. Tele continued. NPO at MT 12/02. Assessment as documented. See flowsheets. See [...] Info) Description 03/08/2024 9:30 EDT Ancillary Procedure [facility] Cardiology - [address] [place] [id number] 03/08/2024 10:15 EDT Ancillary Procedure [facility] Cardiology [address] [place] [address] 04/05/2024 10:00 EDT Ancillary Procedure [facility] [address] [place] [id number] 04/05/2024 10:00 EDT Office Visit [facility] [address] [place] [phone] Carlos Ha NP [address] [place] [address] [place] [address] documented as of this encounter [...] EDT) 12/07/2022 12:4 7 EDT Scan 2 Circuit Manager PROCEDURE/MINOR CROW GICAL ORDERABLES * (ABNORMAL) POCT GLUCOSE, INTERFACED (12/03/2022 20:32 EDT) Glucose, POC 207(H) 70 - 100 mg/dL 12/03/2022 20:33 EDT [facility] HN LAB POC COMMENT (GLUCOSE) Test Performed in 2 [facility] 12/03/2022 20:33 EDT [facility] Blood CAPILLARY BLOOD / Unknown 12/03/2022 20:32 EDT 12/03/2022 20:33 EDT Estefanía Cleaning MD POINT OF CARE FUNMILAYO T ORDERABLES Performing Organization Address [facility] Co de Phone Number [facility] [address] [place] [address] * (ABNORMAL) POCT GLUCOSE, INTERFACED (12/03/2022 17:12 EDT) Glucose, POC 260(H) 70 - 100 mg/dL 12/03/2022 17:13 EDT [facility] HN LAB POC COMMENT (GLUCOSE) Test Performed in 2 [facility] 12/03/2022 17:13 EDT [facility] Blood CAPILLARY BLOOD / Unknown 12/03/2022 17:12 EDT 12/03/2022 17:13 EDT Estefanía Cleaning MD POINT OF CARE FUNMILAYO T ORDERABLES Performing Organization Address City/[facility]/ZIP Co de Phone Number [facility] [address] [place] [phone] * ECG REPORT - SCANNED (12/03/2022 16:31 EDT) 12/03/2022 16:3 1 EDT Scan 2 Circuit Manager PROCEDURE/MINOR CROW GICAL ORDERABLES * (ABNORMAL) POCT GLUCOSE, INTERFACED (12/03/2022 12:09 EDT) Glucose, POC 198(H) 70 - 100 mg/dL 12/03/2022 12:10 EDT [facility] HN LAB POC COMMENT (GLUCOSE) Test Performed in 2 [facility] 12/03/2022 12:10 EDT [facility] Blood CAPILLARY BLOOD / Unknown 12/03/2022 12:09 EDT 12/03/2022 12:10 EDT Estefanía Cleaning MD POINT OF CARE FUNMILAYO T ORDERABLES [facility] [address] [place] [address] * (ABNORMAL) POCT GLUCOSE, INTERFACED (12/03/2022 7:50 EDT) Glucose, POC 216(H) 70 - 100 mg/dL 12/03/2022 7:51 EDT [facility] LAB POC COMMENT (GLUCOSE) Test Performed in 2 [facility] 12/03/2022 7:51 EDT [facility] Blood CAPILLARY BLOOD / Unknown 12/03/2022 7:50 EDT 12/03/2022 7:51 EDT Estefanía Cleaning MD POINT OF CARE FUNMILAYO T ORDERABLES [facility] [address] [place] [address] * EKG 12-LEAD (12/03/2022 7:14 EDT) 12/03/2022 7:14 EDT Narrative [facility] - 12/03/2022 8:53 EDT ? [facility] ? Test Date: ?2022-12-03 Pat Name: ? JOANNA GAUTAM ?Department: ? Room: ? 215 Gender: ? Female ? Instruction Dean: ?? GALLAGER C : ?1950 ? Requested By: JERE JEAN BAPTISTE Order Number: [id number] ? Reading MD: ?? AVIS ARGUETA MD ? Measurements Intervals ?Graff ? Rate: ? 81 ? P: ?35 GA: ? 284 ?QRS: ?-10 QRSD: ? 120 [...] Procedure Note Avis Argueta MD - 12/03/2022 [facility] Test Date: 2022-12-03 Pat Name: JOANNA HART Department: Room: 215 Gender: Female Instruction Dean: DOMINIK Parada : 1950 Requested By: JERE JEAN BAPTISTE Order Number: [id number] Reading MD: AVIS ARGUETA MD Measurements Intervals Graff Rate: 81 P: 35 GA: 284 QRS: -10 QRSD: 120 T: 153 [...] Archie Lux MD CARDIAC ECG ORDERA BLES [facility] * (ABNORMAL) TROPONIN I (12/03/2022 6:14 EDT) Troponin I (ng/mL) 0.106(HH) <0.034 ng/mL 12/03/2022 7:10 EDT [facility] Blood VENOUS BLOOD / Unknown Venipuncture / Unknown 12/03/2022 6:14 EDT 12/03/2022 6:26 EDT Narrative [facility] - 12/03/2022 7:10 EDT The results of this assay can be falsely lowered due to the consumption of Biotin. Justus Liang MD MPH CHEMISTRY & BLOOD GAS ORDERABLES Performing Organization Address [facility] Co de Phone Number [facility] [address] [place] [address] * (ABNORMAL) MAGNESIUM (12/03/2022 6:14 EDT) [facility] Magnesium 1.6(L) 1.7 - 2.8 mg/dL 12/03/2022 6:43 EDT [facility] Blood VENOUS BLOOD / Unknown Venipuncture / Unknown 12/03/2022 6:14 EDT 12/03/2022 6:26 EDT Justus Liang MD MPH CHEMISTRY & BLOOD GAS ORDERABLES Performing Organization Address [facility] Co de Phone Number [facility] [address] [place] [address] * (ABNORMAL) COMPLETE BLOOD COUNT AND DIFFERENTIAL (12/03/2022 6:14 EDT) [facility] WBC 5.91 4.00 - 12.40 K/cmm 12/03/2022 6:28 [facility] RBC 3.29(L) 3.86 - 5.04 M/cmm 12/03/2022 6:28 [facility] Hemoglobin 8.7(L) 11.6 - 15.2 g/dL 12/03/2022 6:28 [facility] HCT 28.2(L) 34.9 - 44.4 % 12/03/2022 6:28 [facility] MCV 86 81 - 98 fL 12/03/2022 6:28 [facility] MCH 26.4(L) 26.7 - 33.3 pg 12/03/2022 6:28 [facility] MCHC 30.9(L) 32.1 - 35.9 g/dL 12/03/2022 6:28 [facility] RDW-CV 14.9(H) <14.7 % 12/03/2022 6:28 [facility] RDW-SD 46.1 <50.4 fl 12/03/2022 6:28 [facility] PLT 407(H) 141 - 377 K/cmm 12/03/2022 6:28 [facility] MPV 9.8 9.5 - 12.7 fL 12/03/2022 6:28 [facility] % Neutrophils 47.1 % 12/03/2022 6:28 [facility] % Lymphocytes 39.1 % 12/03/2022 6:28 [facility] % Monocytes 8.0 % 12/03/2022 6:28 [facility] % Eosinophils 4.4 % 12/03/2022 6:28 [facility] % Basophils 1.2 % 12/03/2022 6:28 [facility] % Immature Grans 0.2 % 12/04/19 6:28 [facility] Absolute Neutrophils 2.79 2.20 - 8.85 K/cmm 12/03/2022 6:28 [facility] Absolute Lymphocytes 2.31 1.09 - 3.30 K/cmm 12/03/2022 6:28 [facility] Absolute Monocytes 0.47 0.10 - 0.80 K/cmm 12/03/2022 6:28 [facility] Absolute Eosinophils 0.26 0.03 - 0.61 K/cmm 12/03/2022 6:28 [facility] ABS Basophils 0.07 0.01 - 0.11 K/cmm 12/03/2022 6:28 [facility] Absolute Immature Grans 0.01 0.00 - 0.06 K/cmm 12/03/2022 6:28 [facility] Type of Differential: Auto 12/03/2022 6:28 [facility] Blood VENOUS BLOOD / Unknown Venipuncture / Unknown 12/03/2022 6:14 EDT 12/03/2022 6:26 EDT Justus Liang MD MPH PACKAGES & DNA GA OBE ORDERABLES Performing Organization Address City/[facility]/ZIP Co de Phone Number [facility] [address] [place] [address] * (ABNORMAL) BASIC METABOLIC PANEL (BMP) (12/03/2022 6:14 EDT) Sodium 138 136 - 145 mmol/L [facility] Potassium 3.5 3.5 - 5.0 mmol/L 12/03/2022 6:43 [facility] Chloride 108 96 - 110 mmol/L 12/03/2022 6:43 [facility] CO2 Total 23 22 - 32 mmol/L 12/03/2022 6:43 [facility] Anion Gap 7 5 - 14 mmol/L 12/03/2022 6:43 [facility] Glucose 210(H) 70 - 100 mg/dl 12/03/2022 6:43 [facility] Calcium 9.1 8.5 - 10.5 mg/dL 12/03/2022 6:43 [facility] BUN 16 10 - 26 mg/dL 12/03/2022 6:43 [facility] Creatinine 0.86 0.52 - 1.04 mg/dL 12/03/2022 6:43 [facility] eGFR 73 >60 mL/min/1.73 m2 12/03/2022 6:43 [facility] Blood VENOUS BLOOD / Unknown Venipuncture / Unknown 12/03/2022 6:14 EDT 12/03/2022 6:26 EDT Justus Liang MD MPH CHEMISTRY & BLOOD GAS ORDERABLES Performing Organization Address City/[facility]/ZIP Co de Phone Number [facility] [address] [place] [phone] * (ABNORMAL) TROPONIN I (12/02/2022 23:27 EDT) [facility] Troponin I (ng/mL) 0.112(HH) <0.034 ng/mL 12/03/2022 0:28 EDT [facility] Blood VENOUS BLOOD / Unknown Venipuncture / Unknown 12/02/2022 23:27 EDT 12/02/2022 23:29 EDT Narrative [facility] - 12/03/2022 0:28 EDT The results of this assay can be falsely lowered due to the consumption of Biotin. Justus Liang MD MPH CHEMISTRY & BLOOD GAS ORDERABLES Performing Organization Address [facility]/ZIP Co de Phone Number [facility] [address] [place] [phone] * (ABNORMAL) POCT GLUCOSE, INTERFACED (12/02/2022 20:27 EDT) [facility] Glucose, POC 227(H) 70 - 100 mg/dL 12/02/2022 20:28 EDT [facility] HN LAB POC COMMENT (GLUCOSE) Test Performed in 2 [facility] 12/02/2022 20:28 EDT [facility] Blood CAPILLARY BLOOD / Unknown 12/02/2022 20:27 EDT 12/02/2022 20:28 EDT Estefanía Cleaning MD POINT OF CARE FUNMILAYO T ORDERABLES [facility] [address] [place] [phone] * (ABNORMAL) POCT GLUCOSE, INTERFACED (12/02/2022 16:46 EDT) [facility] Glucose, POC 251(H) 70 - 100 mg/dL 12/02/2022 16:47 EDT [facility] HN LAB POC COMMENT (GLUCOSE) Test Performed in 2 [facility] 12/02/2022 16:47 EDT [facility] Blood CAPILLARY BLOOD / Unknown 12/02/2022 16:46 EDT 12/02/2022 16:47 EDT Estefanía Cleaning MD POINT OF CARE FUNMILAYO T ORDERABLES Performing Organization Address [facility]/ZIP Co de Phone Number [facility] [address] [place] [address] * (ABNORMAL) TROPONIN I (12/02/2022 16:01 EDT) [facility] Troponin I (ng/mL) 0.097(HH) <0.034 ng/mL 12/02/2022 16:58 EDT [facility] Blood VENOUS BLOOD / Unknown Venipuncture / Unknown 12/02/2022 16:01 EDT 12/02/2022 16:21 EDT Narrative [facility] - 12/02/2022 16:58 EDT The results of this assay can be falsely lowered due to the consumption of Biotin. Justus Liang MD MPH CHEMISTRY & BLOOD GAS ORDERABLES Performing Organization Address [facility] Co de Phone Number [facility] [address] [place] [address] * (ABNORMAL) POCT GLUCOSE, INTERFACED (12/02/2022 11:56 EDT) [facility] Glucose, POC 129(H) 70 - 100 mg/dL 12/02/2022 11:57 EDT [facility] HN LAB POC COMMENT (GLUCOSE) Test Performed in [address] [place] [address] 12/02/2022 11:57 EDT [facility] Blood CAPILLARY BLOOD / Unknown 12/02/2022 11:56 EDT 12/02/2022 11:57 EDT Estefanía Cleaning MD POINT OF CARE FUNMILAYO T ORDERABLES Performing Organization Address [facility] Co de Phone Number [facility] [address] [place] [address] * US LOWER VENOUS DUPLEX (DVT) RIGHT [...] CARE LVOT peak velocity, S 0.9 m/s [facility] LVOT mean velocity, S 0.6 m/s [facility] POINT OF CARE LVOT VTI, S 16.8 cm [facility] PO INT OF CARE AV LVOT peak gradient 3 mmHg [facility] POINT OF CARE LVOT mean gradient, S 2 mmHg [facility] POINT [facility] CARE LV Diastolic Volume 88 mL [facility] POINT OF CARE LV Systolic Volume 34 mL U [facility] POINT OF CARE LVIDD BY MMODE 4.2 cm [facility] POINT OF CARE LV e', lateral 0.11 m/s [facility] POINT OF CARE LV E/e', lateral 12.0 [facility] POINT OF CARE LV e', medial 0.04 m/s [facility] POINT OF CARE LV e', average 0.07 m/s [facility] POINT OF CARE LV E/e', average 6 [facility] POINT OF CARE Mitral deceleration slope 491 cm/s2 [facility] POINT OF CARE Mitral deceleration time 258 ms [facility] POINT OF CARE Mitral E-wave peak velocity 1.3 m/s [facility] POINT OF CARE Mitral A-wave peak velocity 1.5 m/s [facility] PO[facility] C[facility] [place] Atrial Area A4C 21.2 cm2 U [facility] POINT OF CARE [place] Atrial Area A2C 21.2 cm2 U [facility] POINT OF CARE [place] volumes, ES, A4C [...] a-p 3.6 cm [facility] POINT OF CARE [place] Int Pk Flow PISA 1.28 mL/s [facility] [...] Images were obtained using cardiac ultrasound machine Airsynergy-03. General Comparison Compared to the previous study, there were no significant interval changes. Justus Liang MD MPH CARDIAC ECHO SURENDRA IRAHETA * (ABNORMAL) TROPONIN I (12/02/2022 8:14 EDT) [facility] Troponin I (ng/mL) 0.100(HH) <0.034 ng/mL 12/02/2022 11:56 EDT [facility] Blood VENOUS BLOOD / Unknown Venipuncture / Unknown 12/02/2022 8:14 EDT 12/02/2022 8:18 EDT Narrative [facility] - 12/02/2022 11:56 EDT The results of this assay can be falsely lowered due to the consumption of Biotin. Justus Liang MD MPH CHEMISTRY & BLOOD GAS ORDERABLES Performing Organization Address City/[facility]/ZIP Co de Phone Number [facility] [address] [phone] * (ABNORMAL) POCT GLUCOSE, INTERFACED (12/02/2022 8:01 EDT) [facility] Glucose, POC 142(H) 70 - 100 mg/dL 12/02/2022 8:02 EDT [facility] HN LAB POC COMMENT (GLUCOSE) Test Performed in [address] [place] [address] 12/02/2022 8:02 EDT [facility] Blood CAPILLARY BLOOD / Unknown 12/02/2022 8:01 EDT 12/02/2022 8:02 EDT Etsefanía Cleaning MD POINT OF CARE FUNMILAYO T ORDERABLES [facility] [address] [place] [address] * MAGNESIUM (12/02/2022 6:44 EDT) [facility] Magnesium 1.7 1.7 - 2.8 mg/dL 12/02/2022 7:09 EDT [facility] Blood VENOUS BLOOD / Unknown Venipuncture / Unknown 12/02/2022 6:44 EDT 12/02/2022 6:52 EDT Estefanía Cleaning MD CHEMISTRY & BLOOD GAS ORDERABLES [facility] [address] [place] [address] * (ABNORMAL) COMPLETE BLOOD COUNT AND DIFFERENTIAL (12/02/2022 6:44 EDT) WBC 8.03 4.00 - 12.40 K/cmm 12/02/2022 7:18 [facility] RBC 3.26(L) 3.86 - 5.04 M/cmm 12/02/2022 7:18 [facility] Hemoglobin 8.8(L) 11.6 - 15.2 g/dL 12/02/2022 7:18 [facility] HCT 27.7(L) 34.9 - 44.4 % 12/02/2022 7:18 [facility] MCV 85 81 - 98 fL 12/02/2022 7:18 [facility] MCH 27.0 26.7 - 33.3 pg 12/02/2022 7:18 [facility] MCHC 31.8(L) 32.1 - 35.9 g/dL 12/02/2022 7:18 [facility] RDW-CV 15.0(H) <14.7 % 12/02/2022 7:18 [facility] RDW-SD 45.3 <50.4 fl 12/02/2022 7:18 [facility] PLT 422(H) 141 - 377 K/cmm 12/02/2022 7:18 [facility] MPV 10.4 9.5 - 12.7 fL 12/02/2022 7:18 [facility] % Neutrophils 53.1 % 12/02/2022 7:18 [facility] % Lymphocytes 35.5 % 12/02/2022 7:18 [facility] % Monocytes 6.5 % 12/02/2022 7:18 [facility] % Eosinophils 3.1 % 12/02/2022 7:18 [facility] % Basophils 0.9 % 12/02/2022 7:18 [facility] % Immature Grans 0.9 % 12/03/19 7:18 [facility] Absolute Neutrophils 4.27 2.20 - 8.85 K/cmm 12/02/2022 7:18 [facility] Absolute Lymphocytes 2.85 1.09 - 3.30 K/cmm 12/02/2022 7:18 [facility] Absolute Monocytes 0.52 0.10 - 0.80 K/cmm 12/02/2022 7:18 [facility] Absolute Eosinophils 0.25 0.03 - 0.61 K/cmm 12/02/2022 7:18 [facility] ABS Basophils 0.07 0.01 - 0.11 K/cmm 12/02/2022 7:18 [facility] Absolute Immature Grans 0.07(H) 0.00 - 0.06 K/cmm 12/02/2022 7:18 [facility] Type of Differential: Auto 12/02/2022 7:18 [facility] Blood VENOUS BLOOD / Unknown Venipuncture / Unknown 12/02/2022 6:44 EDT 12/02/2022 6:52 EDT Estefanía Cleaning MD PACKAGES & DNA GA OBE ORDERABLES [facility] [address] [place] [address] * (ABNORMAL) BASIC METABOLIC PANEL (BMP) (12/02/2022 6:44 EDT) Sodium 139 136 - 145 mmol/L 12/02/2022 7:09 [facility] Potassium 3.9 3.5 - 5.0 mmol/L 12/02/2022 7:09 [facility] Chloride 109 96 - 110 mmol/L 12/02/2022 7:09 [facility] CO2 Total 21(L) 22 - 32 mmol/L 12/02/2022 7:09 [facility] Anion Gap 9 5 - 14 mmol/L 12/02/2022 7:09 [facility] Glucose 156(H) 70 - 100 mg/dl 12/02/2022 7:09 [facility] Calcium 10.2 8.5 - 10.5 mg/dL 12/02/2022 7:09 [facility] BUN 12 10 - 26 mg/dL 12/02/2022 7:09 [facility] Creatinine 0.90 0.52 - 1.04 mg/dL 12/02/2022 7:09 [facility] eGFR 69 >60 mL/min/1.73 m2 12/02/2022 7:09 [facility] Blood VENOUS BLOOD / Unknown Venipuncture / Unknown 12/02/2022 6:44 EDT 12/02/2022 6:52 EDT Estefanía Cleaning MD CHEMISTRY & BLOOD GAS ORDERABLES Performing Organization Address City/[facility]/ZIP Co de Phone Number [facility] [address] [place] [address] * MAGNESIUM (12/01/2022 23:12 EDT) [facility] Magnesium 1.8 1.7 - 2.8 mg/dL 12/01/2022 23:30 EDT [facility] Blood VENOUS BLOOD / Unknown Venipuncture / Unknown 12/01/2022 23:12 EDT 12/01/2022 23:14 EDT Estefanía Cleaning MD CHEMISTRY & BLOOD GAS ORDERABLES Performing Organization Address City/[facility]/ZIP Co de Phone Number [facility] [address] [place] [address] * (ABNORMAL) TROPONIN I (12/01/2022 23:12 EDT) Pathologist [facility] Troponin I (ng/mL) 0.130(HH) <0.034 ng/mL 12/01/2022 23:53 EDT [facility] Blood VENOUS BLOOD / Unknown Venipuncture / Unknown 12/01/2022 23:12 EDT 12/01/2022 23:14 EDT Narrative [facility] - 12/01/2022 23:53 EDT The results of this assay can be falsely lowered due to the consumption of Biotin. Estefanía Cleaning MD CHEMISTRY & BLOOD GAS ORDERABLES Performing Organization Address City/[facility]/ZIP Co de Phone Number [facility] [address] [place] [address] * (ABNORMAL) POCT GLUCOSE, INTERFACED (12/01/2022 20:03 EDT) [facility] Glucose, POC 176(H) 70 - 100 mg/dL 12/01/2022 20:05 EDT [facility] HN LAB POC COMMENT (GLUCOSE) Test Performed in 2 [facility] 12/01/2022 20:05 EDT [facility] Blood CAPILLARY BLOOD / Unknown 12/01/2022 20:03 EDT 12/01/2022 20:04 EDT Estefanía Cleaning MD POINT OF CARE FUNMILAYO T ORDERABLES Performing Organization Address City/[facility]/ZIP Co de Phone Number [facility] [address] [place] [id number] * ECG REPORT - SCANNED (12/01/2022 17:45 EDT) 12/01/2022 17:4 5 EDT Scan 2 Circuit Manager PROCEDURE/MINOR CROW GICAL ORDERABLES * (ABNORMAL) POCT GLUCOSE, INTERFACED (12/01/2022 17:45 EDT) [facility] Glucose, POC 126(H) 70 - 100 mg/dL 12/01/2022 17:45 EDT [facility] HN LAB POC COMMENT (GLUCOSE) Test Performed in 2 [facility] 12/01/2022 17:45 EDT [facility] Blood CAPILLARY BLOOD / Unknown 12/01/2022 17:45 EDT 12/01/2022 17:45 EDT Estefanía Cleaning MD POINT OF CARE FUNMILAYO T ORDERABLES Performing Organization Address City/[facility]/ZIP Co de Phone Number [facility] [address] [place] [address] * (ABNORMAL) TROPONIN I (12/01/2022 16:30 EDT) Troponin I (ng/mL) 0.107(HH) <0.034 ng/mL 12/01/2022 17:07 EDT [facility] Blood VENOUS BLOOD / Unknown Venipuncture / Unknown 12/01/2022 16:30 EDT 12/01/2022 16:39 EDT Narrative [facility] - 12/01/2022 17:07 EDT The results of this assay can be falsely lowered due to the consumption of Biotin. Estefanía Cleaning MD CHEMISTRY & BLOOD GAS ORDERABLES Performing Organization Address [facility] Co de Phone Number [facility] [address] [place] [address] * XR CHEST PORTABLE 1 VIEW (12/01/2022 [...] BNP 3,200(H) <221 pg/mL 12/01/2022 13:47 EDT [facility] Comment: In the acute setting NT-proBNP values <300 pg/mL have a 98% NPV for excluding acute heart failure. In outpatient populations, NT-proBNP values <125 have a 99% NPV for excluding heart failure. Blood VENOUS BLOOD / Unknown Venipuncture / Unknown 12/01/2022 13:03 EDT 12/01/2022 13:14 EDT Micah Camarillo MD CHEMISTRY & BLOOD GA S ORDERABLES Performing Organization Address [facility] Co de Phone Number [facility] [address] [place] [address] * HOLD BLUE TOP (12/01/2022 13:03 EDT) Hold Hold 12/01/2022 14:15 EDT [facility] Blood VENOUS BLOOD / Unknown Venipuncture / Unknown 12/01/2022 13:03 EDT 12/01/2022 13:14 EDT Micah Camarillo MD LAB INFO SERVICE AND SUPPORT & PHONE RESULT Performing Organization Address [facility] Co de Phone Number [facility] [address] [place] [address] * (ABNORMAL) MAGNESIUM (12/01/2022 13:03 EDT) Magnesium 1.4(L) 1.7 - 2.8 mg/dL 12/01/2022 13:36 EDT [facility] Comment:Slight hemolysis fabiola ntified, interpret with caution as results may be affected due to hemolysis. Blood VENOUS BLOOD / Unknown Venipuncture / Unknown 12/01/2022 13:03 EDT 12/01/2022 13:14 EDT Micah Camarillo MD CHEMISTRY & BLOOD GA S ORDERABLES Performing Organization Address [facility] Co de Phone Number [facility] [address] [place] [address] * (ABNORMAL) TROPONIN I (12/01/2022 13:03 EDT) [facility] Troponin I (ng/mL) 0.090(HH) <0.034 ng/mL 12/01/2022 14:07 EDT [facility] Blood VENOUS BLOOD / Unknown Venipuncture / Unknown 12/01/2022 13:03 EDT 12/01/2022 13:14 EDT Narrative [facility] - 12/01/2022 14:07 EDT The results of this assay can be falsely lowered due to the consumption of Biotin. Micah Camarillo MD CHEMISTRY & BLOOD GA S ORDERABLES Performing Organization Address [facility] Number [facility] [address] [place] [address] * (ABNORMAL) BASIC METABOLIC PANEL (BMP) (12/01/2022 13:03 EDT) [facility] Sodium 137 136 - 145 mmol/L 12/01/2022 13:36 EDT [facility] Potassium 4.8 3.5 - 5.0 mmol/L 12/01/2022 13:36 EDT [facility] Comment:Slight hemolysis fabiola ntified, interpret with caution as hemolysis will elevate potassium result. Chloride 106 96 - 110 mmol/L 12/01/2022 13:36 EDT [facility] CO2 Total 20(L) 22 - 32 mmol/L 12/01/2022 13:36 EDT [facility] Anion Gap 11 5 - 14 mmol/L 12/01/2022 13:36 [facility] Glucose 272(H) 70 - 100 mg/dl 12/01/2022 13:36 [facility] Calcium 9.9 8.5 - 10.5 mg/dL 12/01/2022 13:36 [facility] BUN 10 10 - 26 mg/dL 12/01/2022 13:36 [facility] Comment: Slight hemolysis identified, interpret with caution as results may be affected due to hemolysis. Creatinine 0.77 0.52 - 1.04 mg/dL 12/01/2022 13:36 [facility] eGFR 83 >60 mL/min/1.7 3m2 12/01/2022 13:36 [facility] Blood VENOUS BLOOD / Unknown Venipuncture / Unknown 12/01/2022 13:03 EDT 12/01/2022 13:14 EDT Micah Camarillo MD CHEMISTRY & BLOOD GA S ORDERABLES [facility] [address] [place] [address] * (ABNORMAL) COMPLETE BLOOD COUNT AND DIFFERENTIAL (12/01/2022 13:03 EDT) WBC 8.07 4.00 - 12.40 K/cmm 12/01/2022 13:18 [facility] RBC 3.23(L) 3.86 - 5.04 M/cmm 12/01/2022 13:18 [facility] Hemoglobin 8.7(L) 11.6 - 15.2 g/dL 12/01/2022 13:18 [facility] HCT 28.0(L) 34.9 - 44.4 % 12/01/2022 13:18 [facility] MCV 87 81 - 98 fL 12/01/2022 13:18 [facility] MCH 26.9 26.7 - 33.3 pg 12/01/2022 13:18 [facility] MCHC 31.1(L) 32.1 - 35.9 g/dL 12/01/2022 13:18 [facility] RDW-CV 14.8(H) <14.7 % 12/01/2022 13:18 [facility] RDW-SD 46.4 <50.4 fl 12/01/2022 13:18 [facility] PLT 434(H) 141 - 377 K/cmm 12/01/2022 13:18 [facility] MPV 10.1 9.5 - 12.7 fL 12/01/2022 13:18 [facility] % Neutrophils 62.9 % 12/01/2022 13:18 [facility] % Lymphocytes 27.5 % 12/01/2022 13:18 [facility] % Monocytes 6.1 % 12/01/2022 13:18 [facility] % Eosinophils 2.2 % 12/01/2022 13:18 [facility] % Basophils 0.9 % 12/01/2022 13:18 [facility] % Immature Grans 0.4 % 12/02/19 13:18 [facility] Absolute Neutrophils 5.08 2.20 - 8.85 K/cmm 12/01/2022 13:18 [facility] Absolute Lymphocytes 2.22 1.09 - 3.30 K/cmm 12/01/2022 13:18 [facility] Absolute Monocytes 0.49 0.10 - 0.80 K/cmm 12/01/2022 13:18 [facility] Absolute Eosinophils 0.18 0.03 - 0.61 K/cmm 12/01/2022 13:18 [facility] ABS Basophils 0.07 0.01 - 0.11 K/cmm 12/01/2022 13:18 [facility] Absolute Immature Grans 0.03 0.00 - 0.06 K/cmm 12/01/2022 13:18 [facility] Type of Differential: Auto 12/01/2022 13:18 EDT [facility] Blood VENOUS BLOOD / Unknown Venipuncture / Unknown 12/01/2022 13:03 EDT 12/01/2022 13:14 EDT Micah Camarillo MD PACKAGES & DNA PROBE ORDERABLES [facility] [address] [place] [address] * EKG 12-LEAD (12/01/2022 12:40 EDT) 12/01/2022 12:4 0 EDT Narrative [facility] - 12/01/2022 13:48 EDT ? [facility] ? Test Date: ?2022-12-01 Pat Name: ? JOANNA GAUTAM ?Department: ? Room: ? C03 Gender: ? Female ? Instruction Dean: ?? JF : ?1950 ? Requested By: JUHI Germain Order Number: [id number] ? Oleksandr HAY: ?? AVIS ARGUETA MD ? Measurements Intervals ?Graff ? Rate: ? 72 ? P: ?41 GA: ? 328 ?QRS: ?-17 QRSD: ? 114 [...] Procedure Note Avis Argueta MD - 12/01/2022 [facility] [place]: 2022-12-01 Pat Name: JOANNA HART Department: Room: 3 Gender: Female Instruction Dean: JF : 1950 Requested By: JUHI Germain Order Number: [id number] Oleksandr MD: AVIS ARGUETA MD Measurements Intervals Graff Rate: 72 P: 41 GA: 328 QRS: -17 QRSD: 114 T: 157 [...] Micah Camarillo MD CARDIAC ECG ORDERABL ES [facility] [...] Provider: Zully Melton, JALEN)2013 (Given - Provider: Cj Olvera RN) 803 (Given - Provider: Mriiam Tran RN)2022 (Given - Provider: Deepali Phelps [...] injection 2 mg 12/01/2022 polyethylene glycol 3350 ([place] RALAX) packet 17 g 1 12/01/2022 ramelteon [...] 12/03/2022 documented in this encounter Care Teams Vehicle Window Tinter Relationship Specialty Start Date End Date Bryant Crain MD [address] [place], [place] [phone] PCP - General 05/04/15 05/17/23 Carlos Ha NP [address] [place] [address] [address] [place] [phone] Consulting Clinician Cardiovascular Disease 09/14/21 documented as of this encounter
--- OUTSIDE RECORDS SUMMARY | 2024-01-14 11:10 | XMS_ITS | Encounter Summary ---
Author Organization [facility] Address [address] [place] [address] Care Team Providers Care Chief Executive Name Role Phone Bryant Crain MD Primary Care Provider [phone] Carlos Ha DEAN OF INSTRUCTION Unavailable [phone] Reason for Visit * Reason Comments Medications Refill Encounter Details Date Type Department Care Team (Late st Contact Info) Description 11/16/[address] [facility] Endocr[facility]ology [address] [place] [address] Sarika Zamudio, DEAN OF INSTRUCTION [address] [facility] [address] [place] [address] Medications Refill Social History Tobacco [...] Description 03/08/2024 9:30 EDT Ancillary Procedure [facility] Cardiology - [address] [place] [address] 03/08/2024 10:15 EDT Ancillary Procedure [facility]iology [place] [address] 04/05/2024 10:[address] [facility] Card[facility] Clinic [address] [place] [address] 04/05/2024 10:00 EDT Office Visit [facility] Cardiology Clinic [address] [place] [address] Carlos Ha NP [address] [phone] documented as of this encounter Visit Diagnoses Not on filedocumented in this encounter Care Teams Chief Executive Relationship Specialty Start Date End Date Bryant Crain MD [address] [place], [place] [phone] PCP - General 05/04/15 05/17/23 Carlos Ha NP [address] [phone] Consulting Clinician Cardiovascular Disease 09/14/21 documented as of this encounter
--- OUTSIDE RECORDS SUMMARY | 2024-01-14 11:10 | XMS_ITS | Encounter Summary ---
Author Organization [facility] Address [address] [place] [address] Care Team Providers Care Associate Merchant Name Role Phone Bryant Crain MD Primary Care Provider [phone] Carlos Ha INVESTMENT STRATEGIST Unavailable [phone] Reason for Visit * Reason Onset Date Comments Results 11/24/2022 Encounter Details Date Type Department Care Team (Late st Contact Info) Description 11/24/2022 Telephone [facility] Cardiology - [address] [place] [address] Nicole Acosta MD Results Social [...] action taken. NICOLE ACOSTA MD 11/24/2022 14:51 [employer] documented in this encounter Plan of Treatment Upcoming Encounters Date Type Department Care Team (Late st Contact Info) Description 03/08/2024 9:30 EDT Ancillary Procedure [facility] Cardiology - [address] [place] [address] 03/08/2024 10:15 EDT Ancillary Procedure [facility] [place] [address] 04/05/2024 10:00 EDT Ancillary Procedure [facility] Cardiology Clinic [address] [place] [phone] 04/05/2024 10:00 EDT Office Visit [facility] Cardiology Clinic [address] [place] [address] Carlos Ha NP [address] [place] [phone] documented as of this encounter Visit Diagnoses Not on filedocumented in this encounter Care Teams Associate Merchant Relationship Specialty Start Date End Date Bryant Crain MD [address] [place], [place] [phone] PCP - General 05/04/15 05/17/23 Carlos Ha NP [address] [place] [address] [phone] Consulting Clinician Cardiovascular Disease 09/14/21 documented as of this encounter
--- OUTSIDE RECORDS SUMMARY | 2024-01-14 11:10 | XMS_ITS | Encounter Summary ---
Author Organization [facility] Address [address] [place] [address] Care Team Providers Care Golf Caddie Name Role Phone Bryant Crain MD Primary Care Provider [phone] Carlos Ha PEDIATRIC SPORTS MEDICINE SPECIALIST Unavailable [phone] Reason for Visit * Reason Onset Date Comments Discuss Possible Transfer 11/11/2022 Encounter Details Date Type Department Care Team (Late st Contact Info) Description 11/11/2022 Telephone [facility] General Medicine Unit [address] [place] [address] Mauri Pizano MD [address] [phone] Discuss Possible Transfer Social History [...] Mauri Pizano MD Addenda Patient accepted to [facility] documented in this encounter Plan of Treatment Upcoming Encounters Date Type Department Care Team (Late st Contact Info) Description 03/08/2024 9:30 EDT Ancillary Procedure [facility] Cardiology - [address] [place], [place] [id number] 03/08/2024 10:15 EDT Ancillary Procedure [facility] Cardiology - [address] [place], [place] [id number] 04/05/2024 10:00 EDT Ancillary Procedure [facility] Cardiology Clinic [address] [place] [address] 04/05/2024 10:00 EDT Office Visit [facility] Cardiology Clinic [address] [place] [address] Carlos Ha NP [address] [facility] [address] [place] [address] documented as of this encounter Visit Diagnoses Not on filedocumented in this encounter Care Teams Golf Caddie Relationship Specialty Start Date End Date Bryant Crain MD [address] [place], [place] [phone] PCP - General 05/04/15 05/17/23 Carlos Ha NP [address] [facility] [address] [phone] Consulting Clinician Cardiovascular Disease 09/14/21 documented as of this encounter
--- OUTSIDE RECORDS SUMMARY | 2024-01-14 11:10 | XMS_ITS | Encounter Summary ---
Author Organization [facility] Address [address] [place] [address] Care Team Providers Care Openstack Cloud Consulting Architect Name Role Phone Bryant Crain MD Primary Care Provider [phone] Carlos Ha INSPECTOR AND SORTER Unavailable [phone] Reason for Visit * Reason Onset Date Comments Shortness of Breath 12/01/2022 Chest Pain 12/01/2022 Encounter Details Date Type Department Care Team (Late st Contact Info) Description 12/01/2022 Telephone [facility] Cardiology Clinic [address] [place] [phone] Fan Schaefer RN Shortness of Breath; Chest [...] Pt should go to local ED or [facility] with goal to be transferred to [facility] likely for heart cath. [id number] if needed. * Pt is scheduled to see at [facility] and have Cardiac MRI soon. Has been wearing event monitor with episodes of Ventricular Tachycardia and heart block with some pauses Relayed recommendations to patient and : * They are planning on driving to [facility] ED * Advised to call 911 for any concerns * Called report to ED RN at [facility] * Telephone Encounter - Fan Schaefer RN [...] Info) Description 03/08/2024 9:30 EDT Ancillary Procedure [facility] Cardiology - [address] [place] [address] 03/08/2024 10:15 EDT Ancillary Procedure [facility] Cardiology [address] [place] [id number] 04/05/2024 10:00 EDT Ancillary Procedure [facility] Cardiology Clinic [address] [place] [address] 04/05/2024 10:00 EDT Office Visit [facility] Cardiology Clinic [address] [place] [phone] Carlos Ha NP [address] [place] [phone] documented as of this encounter Visit Diagnoses Not on filedocumented in this encounter Care Teams Openstack Cloud Consulting Architect Relationship Specialty Start Date End Date Bryant Crain MD [address] [place] [address] PCP - General 05/04/15 05/17/23 Carlos Ha NP [address] [place] [phone] Consulting Clinician Cardiovascular Disease 09/14/21 documented as of this encounter
--- OUTSIDE RECORDS SUMMARY | 2024-01-14 11:10 | XMS_ITS | Encounter Summary ---
Author Organization [facility] Address [address] [place] [address] Care Team Providers Care Stem Dryer Maintainer Name Role Phone Bryant Crain MD Primary Care Provider Carlos Ha OPERATIONS PLANNER Unavailable [phone] Elba Jett MD Primary Care Provider [phone] Reason for Visit * Reason Onset Date Comments Appointment Related 11/27/2022 Encounter Details Date Type Department Care Team (Late st Contact Info) Description 11/27/2022 Telephone [facility] Cardiology - [address] [place] [address] Randy Sebastian MD [address] [place] [phone] Appointment Related Social History Tobacco Use [...] Procedure [facility] [place] [address] 03/08/2024 10:15 EDT Ancillary Procedure [facility] [place] [address] 04/05/2024 10:00 EDT Ancillary Procedure [facility] Cardiology Clinic [address] [place] [address] 04/05/2024 10:00 EDT Office Visit [facility] Cardiology Clinic [address] [place], [place] [address] Carlos Ha, RAHEEM [address] [address] documented as of this encounter Visit Diagnoses Not on filedocumented in this encounter Care Teams Stem Dryer Maintainer Relationship Specialty Start Date End Date Bryant Crain MD [address] [place] [address] PCP - General 05/04/15 05/17/23 Elba Jett MD [address] [place] [phone] PCP - General Family Medicine - Primary Care 05/18/23 Carlos Ha OPERATIONS PLANNER [address] [place] [address] Consulting Clinician Cardiovascular Disease 09/14/21 documented as of this encounter
--- OUTSIDE RECORDS SUMMARY | 2024-01-14 11:11 | XMS_ITS | Encounter Summary ---
Author Organization [facility] Address [address] [place] [address] Care Team Providers Care Government Affairs Manager Name Role Phone Bryant Crain MD Primary Care Provider [phone] Carlos Ha HEALTH CARE SPECIALIST Unavailable [phone] Reason for Visit * (Routine/Next Available) - Receiving Office to Obtain Authorization Specialty Diagnoses / Procedures Referred By Charo daniel Referred To Contact Procedures CT OUTSIDE IMAGES ABDOMEN PELVIS Imaging, External Referral ID Status Reason Start Date Expiration Date Visits Requested Visits Authorized [id number] Receiving Office to Obtain Authorization 11/11/2022 1 1 Encounter Details Date Type Department Care Team (Latest Contact Info) Description 11/02/2022 - 11/02/2022 23:59 EDT Hospital Encounter [facility] Secondary Reads [place] Discharge Disposition: Home [...] hyperglycemia, with long-term current use of insulin ([facility]) by [facility] (non-drug; combo route) route daily. One touch verio meter or best covered by insurance. 1 Each 10/02/2020 cetirizine (ZYRTEC) 10 mg tablet Take 1 Tablet by mouth daily. Cholecalciferol, Vitamin D3, 10 mcg (400 unit) tablet Take 1 Tablet by mouth daily. cyanocobalamin (VITAMIN B-12) 500 mcg tablet Take 1 Tablet by mouth daily. flash glucose scanning reader (FREESTYLE VICKY 2 READER) [facility] 1 Device by [facility] (non-drug; combo route) route daily. Dispense one [...] lancets/blood glucose strips (ONE TOUCH COMBO [facility]) -to test blood sugar - twice daily [...] Procedure [facility] Cardiology - [facility] [place] [address] 03/08/2024 10:15 EDT Ancillary Procedure [facility] Cardiology [facility] [place] [address] 04/05/2024 10:00 EDT Ancillary Procedure [facility] Cardiology Clinic [address] [place] [address] 04/05/2024 10:00 EDT Office Visit [facility] Cardiology Clinic [address] [place] [address] Carlos Ha NP [address] [place] [address]-A [address] [place] [address] documented as [...] on filedocumented in this encounter Care Teams Government Affairs Manager Relationship Specialty Start Date End Date Bryant Crain MD [address] [place], [place] [phone] PCP - General 05/04/15 05/17/23 Carlos Ha NP [address] [place] [address] [place] [address] Consulting Clinician Cardiovascular Disease 09/14/21 documented as of this encounter
--- OUTSIDE RECORDS SUMMARY | 2024-01-14 11:11 | XMS_ITS | Encounter Summary ---
Author Organization [facility] Address [address] [place] [address] Care Team Providers Care Assistant Pressman Name Role Phone Bryant Crain MD Primary Care Provider Encounter Details Date Type Department Care Team (Late st Contact Info) Description 04/09/2021 Results Only [facility] [place] Cardiology Clinic [address] [place] [address] Hayde Paul MD 130 [facility] [address] [place] [address] Social History Tobacco Use Types [...] Description 03/08/2024 9:30 EDT Ancillary Procedure [facility] - [facility] [address] [place] [id number] 03/08/2024 10:15 EDT Ancillary Procedure [facility] Cardiology - [facility] [address] [place], [place] [id number] 04/05/2024 10:00 EDT Ancillary Procedure [facility] Cardiology Clinic [address] [place], [place] [address] 04/05/2024 10:00 EDT Office Visit [facility] Cardiology Clinic [address] [place] [address] Carlos Ha NP 130 [facility] [address] [place] [address] documented as of this encounter Procedures Procedure Name Priority Date/Time Associated Diagnosis Comments POCT GLUCOSE, INTERFACED Routine 04/09/2021 7:51 EDT documented in this encounter Results * (ABNORMAL) POCT GLUCOSE, INTERFACED (04/09/2021 7:51 EDT) Glucose, POC 131(H) 70 - 100 mg/dL 04/09/2021 8:09 EDT [facility] 04/09/2021 7:51 EDT 04/09/2021 8:09 EDT Hayde Paul MD POINT OF CARE T EST ORDERABLES [facility] [address] [place] [address] documented in this encounter Visit Diagnoses Not on filedocumented in this encounter Care Teams Assistant Pressman Relationship Specialty Start Date End Date Bryant Crain MD [address] [place], [place] [phone] PCP - General 05/04/15 05/17/23 documented as of this encounter
--- OUTSIDE RECORDS SUMMARY | 2024-01-14 11:11 | XMS_ITS | Encounter Summary ---
Author Organization [facility] Address [address] [place] [address] Care Team Providers Care Tile Grader Name Role Phone Bryant Crain MD Primary Care Provider [phone] Carlos Ha BUSINESS PLANNER Unavailable [phone] Elba Jett MD Primary Care Provider [phone] Encounter Details Date Type Department Care Team (Late st Contact Info) Description 09/20/2020 Lab Requisition [facility] Pathology & Laboratory Medicine - [address] [address] Outr Resulting Lab, Provider Social [...] [facility] Cardiology - [address] [place], [place] [phone] 03/08/2024 10:15 EDT Ancillary Procedure [facility] [place] [address] 04/05/2024 10:00 EDT Ancillary Procedure [facility] Cardiology Clinic [address] [place], [place] [address] 04/05/2024 10:00 EDT Office Visit [facility] Cardiology Clinic [address] [place] [phone] Carlos Ha NP 130 [facility] [address] [place] [phone] documented as of this encounter Procedures Procedure Name Priority Date/Time Associated Diagnosis Comments ZZCOVID-19 TEST [facility] PCR Today 09/20/2020 10:40 EDT COVID-19 TESTING Routine 09/20/2020 10:4 0 EDT documented in this encounter Results * COVID-19 TEST [facility] PCR (09/20/2020 10:40 EDT) Swab ENTIRE NASOPHARYNX / Unknown 09/20/2020 10:40 EDT 09/20/2020 20:44 EDT Provider Outr Resulting Lab MICROBIOLOGY - GENERAL ORDERABLES [facility] [address] [place] [address] * COVID-19 TESTING (09/20/2020 10:40 EDT) COVID-19 rt-PCR Result Negative Negative 09/21/2020 16:50 EDT [facility] Comment: This test has not [...] developed and its performance characteristics determined by [facility]. It has not been cleared or [...] testing. This test is based on the [facility] COVID-19 Emergency Use Authorization (EUA) assay, with minor modification as defined by the FDA Performed on the [employer] 7 Flex RT-PCR System. Performing Lab [facility] 09/21/2020 16:50 EDT [facility] Swab 09/20/2020 10:4 0 EDT 09/20/2020 20:44 EDT Provider Outr Resulting Lab MICROBIOLOGY - GENERAL ORDERABLES [facility] [address] [place] [address] documented in this encounter Visit Diagnoses Not on filedocumented in this encounter Care Teams Tile Grader Relationship Specialty Start Date End Date Bryant Crain MD [address] [place], [place] [phone] PCP - General 05/04/15 05/17/23 Elba Jett MD [address] [place] [phone] PCP - General Family Medicine - Primary Care 05/18/23 Carlos Ha NP [address] [place] [address] [phone] Consulting Clinician Cardiovascular Disease 09/14/21 documented as of this encounter
--- OUTSIDE RECORDS SUMMARY | 2024-01-14 11:11 | XMS_ITS | Encounter Summary ---
Author Organization [facility] Address [address] [place] [address] Care Team Providers Care Certified Mortician Name Role Phone Bryant Crain MD Primary Care Provider [phone] Reason for Visit * Reason Onset Date Comments Other 10/18/2020 unknown Encounter Details Date Type Department Care Team (Late st Contact Info) Description 10/18/[address] [facility] Endocrinology [address] [place] [address] Meme Valenzuela, RN [address] [place] [address] Other (unknown) Social History Tobacco Use Types [...] Info) Description 03/08/2024 9:30 EDT Ancillary Procedure [facility] Cardiology - [place] [address] [place] [address] 03/08/2024 10:15 EDT Ancillary Procedure [facility] Cardiology [address] [place] [address] 04/05/2024 10:[address] [facility] Cardiology Clinic [address] [place] [address] 04/05/2024 10:[address] [facility] Cardiology Clinic [address] [place] [address] Carlos Ha NP 130 [facility] MOB-A [address] [place] [address] documented as of this encounter Visit Diagnoses Not on filedocumented in this encounter Care Teams Certified Mortician Relationship Specialty Start Date End Date Bryant Crain MD [address] [place] [address] PCP - General 05/04/15 05/17/23 documented as of this encounter
--- OUTSIDE RECORDS SUMMARY | 2024-01-14 11:11 | XMS_ITS | Encounter Summary ---
Author Organization [facility] Address [address] [place] [address] Care Team Providers Care Restaurant Hostess Name Role Phone Bryant Crain MD Primary Care Provider [phone] Carlos Ha LINE PATROLLER Unavailable [phone] Reason for Visit * Reason Comments Other Encounter Details Date Type Department Care Team (Late st Contact Info) Description 12/26/2021 Refill [facility] Endocrinology [address] [place] [address] Sarika Zamudio, LINE PATROLLER 130 [facility] [address] [place] [address] Other Social History Tobacco Use [...] [facility] Cardiology - [address] [place], [place] [phone] 03/08/2024 10:15 EDT Ancillary Procedure [facility] Cardiology - [address] [place] [address] 04/05/2024 10:00 EDT Ancillary Procedure [facility] Cardiology Clinic [address] [place] [phone] 04/05/2024 10:00 EDT Office Visit [facility] Cardiology Clinic [address] [place] [address] Carlos Ha NP [address] [place] [address]-A [address] [place] [phone] documented as of this encounter Visit Diagnoses Not on filedocumented in this encounter Discontinued Medications Medication Sig Discontinue Reason Start Date End Da te flash glucose sensor (FREESTYLE VICKY 2 SENSOR) kit 1 Units by misc (non-drug; combo route) route every 14 days. 10/29/2020 12/29/2021 documented as of this encounter Care Teams Restaurant Hostess Relationship Specialty Start Date End Date Bryant Crain MD [address] [place], [place] [phone] PCP - General 05/04/15 05/17/23 Carlos Ha NP [address] [place] [address] [address] [place] [phone] Consulting Clinician Cardiovascular Disease 09/14/21 documented as of this encounter
--- OUTSIDE RECORDS SUMMARY | 2024-01-14 11:11 | XMS_ITS | Encounter Summary ---
Author Organization [facility] Address [address] [place] [address] Care Team Providers Care Merchandising Coordinator Name Role Phone Bryant Crain MD Primary Care Provider [phone] Reason for Visit * Reason Comments Follow-up Encounter Details Date Type Department Care Team (Latest Contact Info) Description 09/20/2020 12:00 EDT Telemedicine [facility] Cardiology Clinic [address] [place] [address] Carlos Macario NP 130 [facility] [address] [place] [address] Paroxysmal atrial fibrillation (HCC-CMS) (Primary [...] this encounter Progress Notes * Carlos Macario, EDITORIAL WRITER - 09/20/2020 1200 EDT [facility] Telephone Visit The concept of ???Telemedicine?? has [...] History: Diagnosis Date ??? Cerebrovascular accident (CVA) ([facility]) 06/01/2019 ??? Diabetes mellitus, type 2 ([facility]) 01/26/2011 On metformin On metformin ??? Essential hypertension 06/01/2019 ??? Mixed hyperlipidemia 06/05/2019 ??? Nonrheumatic aortic valve stenosis 06/01/2019 ??? Paroxysmal atrial fibrillation ([facility]) 06/01/2019 SH/FH: reviewed and updated MEDICATIONS: [...] ??? Propoxyphene N-Acetaminophen Other reaction(s): Hallucinations ??? Vdeimmw-Mha-Dym Reductase Inhibitors ??? Trulicity [Dulaglutide] Gi Side effect ROS: The rest of the pertinent 10 point review of systems is negative other than mentioned in the HPI Objective: Examination: Home Vitals: No vitals available for this appointment. Pertinent exam findings patient can observe: Alert and orientated. NAD. Speaking in full sentences.Mood stable. [facility] Cardiology ILR Visit Shipper And Receiving: Medtronic Device Type: Implantable loop recorder Service: [...] she may have had it done at [facility] look in their records. Carlos Macario APRN [...] for 01/21/21; 1045 arrival with pt-faxed to [facility] Med Records to get ECHO and Lipids [...] 09/20/2020 1545 EDTAssociated Problem(s): Dilated cardiomyopathy ([facility]) EF on MPI 45%. I had ordered a repeat echo and she thinks she had it done at [facility]. Our records showher last echo was in [...] [facility] Cardiology - [facility] [place] [address] 03/08/2024 10:15 EDT Ancillary Procedure [facility] Cardiology - [facility] [place] [address] 04/05/2024 10:00 EDT Ancillary Procedure [facility] Cardiology Clinic [address] [place], [place] [address] 04/05/2024 10:00 EDT Office Visit [facility] Cardiology Clinic 130 [facility], [place] [address] Carlos Macario NP 130 [facility] MOB-A [address] [place] [address] documented as of this encounter Visit Diagnoses Diagnosis Paroxysmal atrial fibrillation (HCC-CMS)- Primary Atrial fibrillation Mixed hyperlipidemia Dilated cardiomyopathy (HCC-CMS) Other primary cardiomyopathies Status post placement of implantable loop recorder Other specified cardiac device in situ documented in this encounter Care Teams Merchandising Coordinator Relationship Specialty Start Date End Date Bryant Crain MD [address] [place] [address] PCP - General 05/04/15 05/17/23 documented as of this encounter
--- OUTSIDE RECORDS SUMMARY | 2024-01-14 11:11 | XMS_ITS | Encounter Summary ---
Author Organization [facility] Address [address] [place] [address] Care Team Providers Care Recycling Manager Name Role Phone Bryant Crain MD Primary Care Provider [phone] Encounter Details Date Type Department Care Team (Late st Contact Info) Description 11/21/2020 Orders Only [facility] Cardiology Clinic [address] [place] [address] Sabrina Herring MA Cryptogenic stroke (HCC-CMS) (Primary [...] [facility] Cardiology - [address] [place] [address] 03/08/2024 10:15 EDT Ancillary Procedure [facility] Cardiology - [facility] [address] [place] [address] 04/05/2024 10:00 EDT Ancillary Procedure [facility] Cardiology Clinic [address] [place] [address] 04/05/2024 10:00 EDT Office Visit [facility] Cardiology Clinic [address] [place], [place] [address] Carlos Ha NP 130 [facility] MOB-A [address] [place] [address] documented as of this encounter Procedures Procedure Name Priority Date/Time Associated Diagnosis Comments CARDIAC IMPLANT CHECK - REMOTE MONITOR Routine 11/21/2020 8:57 EDT Cryptogenic stroke (HCC-CMS) documented in this encounter Results * CARDIAC IMPLANT CHECK - REMOTE - LOOP RECORDER (ILR) (11/21/2020 8:57 EDT) Anatomical Region Laterality Modality Device Narrative 12/02/2020 8:59 EDT Remote transmission of ILR reviewed. Battery has reached CONTAINER COORDINATOR. No arrhythmias, no symptoms. See scanned documents for full details. Procedure Note Orquidea Bowers APRN - 12/02/2020 Remote transmission of ILR reviewed. Battery has reached CONTAINER COORDINATOR. Noarrhythmias, no symptoms. See scanned documents for full details. Carlos Ha NP CV IMPLANTABLE CARDI AC DEVICE documented in this encounter Visit Diagnoses Diagnosis Cryptogenic stroke (HCC-CMS)- Primary Unspecified cerebral artery occlusion with cerebral infarction documented in this encounter Care Teams Recycling Manager Relationship Specialty Start Date End Date Bryant Crain MD [address] [place], [place] [phone] PCP - General 05/04/15 05/17/23 documented as of this encounter
--- OUTSIDE RECORDS SUMMARY | 2024-01-14 11:11 | XMS_ITS | Encounter Summary ---
Author Organization [facility] Address [address] [place] [address] Care Team Providers Care Elevator Builder Name Role Phone Bryant Crain MD Primary Care Provider [phone] Encounter Details Date Type Department Care Team [...] Procedure [facility] Cardiology - [address] [place] [address] 03/08/2024 10:15 EDT Ancillary Procedure [facility] [place] [address] 04/05/2024 10:00 EDT Ancillary Procedure [facility] Cardiology Clinic [address] [place] [phone] 04/05/2024 10:00 EDT Office Visit [facility] Cardiology Clinic [address] [place] [phone] Carlos Ha NP [address] [place] [address] [address]OB[address]A [address] [place] [address] documented as of this encounter Visit Diagnoses Not on filedocumented in this encounter Care Teams Elevator Builder Relationship Specialty Start Date End Date Bryant Crain MD [address] [place], [place] [phone] PCP - General 05/04/15 05/17/23 documented as of this encounter
--- OUTSIDE RECORDS SUMMARY | 2024-01-14 11:11 | XMS_ITS | Encounter Summary ---
Author Organization [facility] Address [address] [place] [address] Care Team Providers Care Tobacco Checkout Clerk Name Role Phone Bryant Crain MD Primary Care Provider [phone] Reason for Visit * Reason Comments Other device battery deple tion Encounter Details Date Type Department Care Team (Late st Contact Info) Description 04/09/2021 External Contact [facility] [address] [place] [address] Hayde Paul MD 130 [facility]- [address] [place] [address] Encounter for loop recorder at [...] Notes * Hayde Paul MD - 04/09/2021 6588 EDT [facility] Cardiology/Electrophysiology Operative Note Patient: Joanna HART Date of : 1950 Date of Service: 04/09/2021 Preoperative diagnosis: Implanted database security administrator battery depletion Postoperative diagnosis: Implanted database security administrator battery depletion Procedure: Implanted database security administrator (Medtronic Reveal LINQ) explant Biotech Production Specialist: Hayde Paul MD Anesthesia: Local Preprocedure antibiotics: [...] explantation of a Medtronic Reveal LINQ implanted database security administrator. CPT 66291. Hayde Paul MD documented in this encounter Plan of Treatment Upcoming Encounters Date Type Department Care Team (Late st Contact Info) Description 03/08/2024 9:30 EDT Ancillary Procedure [facility] Cardiology [facility] [place] [address] 03/08/2024 10:15 EDT Ancillary Procedure [facility] Cardiology [facility] [place] [place] [address] 04/05/2024 10:00 EDT Ancillary Procedure [facility] Cardiology Clinic [address] [place] [address] 04/05/2024 10:00 EDT Office Visit [facility] Cardiology Clinic [address] [place], [place] [address] Carlos Ha NP 130 [facility] MOB-A [address] [place] [address] documented as of this encounter Visit Diagnoses Diagnosis Encounter for loop recorder at end of battery life- Primary Fitting and adjustment of other cardiac device documented in this encounter Care Teams Tobacco Checkout Clerk Relationship Specialty Start Date End Date Bryant Crain MD [address] [place] [address] PCP - General 05/04/15 05/17/23 documented as of this encounter
--- OUTSIDE RECORDS SUMMARY | 2024-01-14 11:11 | XMS_ITS | Encounter Summary ---
Author Organization [facility] Address [address] [place] [address] Care Team Providers Care C D Reactor Operator Name Role Phone Bryant Crain MD Primary Care Provider [phone] Reason for Visit * Reason Comments Follow-up Pacemaker/Device Check Low Battery Encounter Details Date Type Department Care Team (Latest Contact Info) Description 03/14/2021 9:00 EDT Office Visit [facility] Cardiology Clinic [address] [place] [address] Carlos Ha NP 130 [facility]- [address] [place] [phone] Dilated cardiomyopathy (HCC-CMS) (Primary Dx); Essential [...] this encounter Progress Notes * Carlos Ha, CLAY PIGEON LOADER - 03/14/2021 09 EDT CC: Follow-up and [...] Date ??? Cerebrovascular accident (CVA) ([facility]) 06/01/2019 ??? Diabetes mellitus, type 2 ([facility]) 01/26/2011 On metformin On metformin ??? Essential hypertension 06/01/2019 ??? Mixed hyperlipidemia 06/05/2019 ??? Nonrheumatic aortic valve stenosis 06/01/2019 ??? Paroxysmal atrial fibrillation ([facility]) 06/01/2019 SH/FH: reviewed and updated MEDICATIONS: Medications Prior to Today's Visit Medication Sig ??? acetaminophen (TYLENOL 8 HOUR) 650 mg CR tablet 2 tab(s) orally twice a day, only as needed ??? apixaban (ELIQUIS) 5 mg tablet Take 5 mg by mouth 2 times daily. ??? aspirin 81 mg EC tablet Take 81 mg by mouth daily. ??? blood glucose meter by [facility] (non-drug; combo route) route daily. One touch verio meter or best covered by insurance. ??? candesartan (ATACAND) 32 mg tablet Take 32 mg by mouth daily. ??? cetirizine (ZYRTEC) 10 mg tablet Take 10 mg by mouth daily. ??? flash glucose scanning reader (FREESTYLE VICKY 2 READER) misc 1 Device by [facility] (non-drug; comboroute) route daily. Dispense one reader ??? flash glucose sensor (FREESTYLE VICKY 2 SENSOR) kit 1 Units by [facility] (non- drug; combo route) route every 14 [...] ??? lancets/blood glucose strips (ONE TOUCH COMBO [facility]) -to test blood sugar - twice [...] ??? Propoxyphene N-Acetaminophen Other reaction(s): Hallucinations ??? Lfqkire-Kar-Upi Reductase Inhibitors ??? Trulicity [Dulaglutide] Gi Side [...] intraventricular conduction defect. ECHOCARDIOGRAM 12/18/2020 (completed at [facility]) LV is normal size and function. [...] TRIG 256 06/05/2019 HGBA1C 7.0 (A) 03/06/2021 [facility] Cardiology ILR Visit [place] Naturalist: [employer] Device Type: Implantable loop recorder Service: [...] Procedure [facility] Cardiology - [facility] [place] [address] 03/08/2024 10:15 EDT Ancillary Procedure [facility] Cardiology - [facility] [place] [address] 04/05/2024 10:[address] [facility] Clinic [address] [place] [address] [id number] 04/05/2024 10:[address] [facility] Cardiology Clinic [address] [place] [address] [phone] Carlos Ha, SKIN INSTALLER [address] [place] [address]-A [address] [place] [phone] documented as of this encounter Visit Diagnoses Diagnosis Dilated cardiomyopathy (HCC-CMS)- Primary Other primary cardiomyopathies Essential hypertension Unspecified essential hypertension Mixed hyperlipidemia Paroxysmal atrial fibrillation (HCC-CMS) Atrial fibrillation documented in this encounter Care Teams C D Reactor Operator Relationship Specialty Start Date End Date Bryant Crain MD [address] [place] [address] PCP - General 05/04/15 05/17/23 documented as of this encounter
--- OUTSIDE RECORDS SUMMARY | 2024-01-14 11:11 | XMS_ITS | Encounter Summary ---
Author Organization [facility] Address [address] [place] [address] Care Team Providers Care Senior Clinical Research Associate Name Role Phone Bryant Crain MD Primary Care Provider [phone] Reason for Visit * Reason Comments Diabetes Encounter Details Date Type Department Care Team (Latest Contact Info) Description 08/07/2020 13:[address] [facility] Endocrinology [address] [place] [address] Sarika Zaumdio, BATT PACKER 130 [facility]- [address] [place] [address] Type 2 diabetes mellitus with hyperglycemia, with long-term current use of insulin ([facility]) (Primary Dx); Stage 3b chronic [...] hyperglycemia, with long-term current use of insulin ([facility]) Inject 0.25 mg into the skin once a week. 2 Pen 3 08/07/2020 10/02/2020 documented in this encounter Progress Notes * Heidi Moore RN - 08/07/2020 1345 EST A1c done Needs eye exam Letter sent Lab Results Component Value Date UABCR 375.4 07/10/2020 HGBA1C 8.4 (A) 07/10/2020 Glucose-108 * Marcellusambrosejustin Sarika M, [place]OR [place] - 08/07/2020 1345 EST Reason for Visit: DM f/up PCP: Dr. Crain OTHER PROVIDERS: Carlos Ha NP cardiology Joanna Hart is a 70 y.o. female who presented to the clinic for a follow-up in [facility], with a history of DM [...] gain weight. She is not interested in [facility] DM: unsure if father had DM 4 of her siblings have [facility] Recent A1C: 8.4 (06/2020) Diabetic Medications: lantus [...] (within one year): overdue. Has provider in [place] that she prefers. Has not been ableto go d/t COVID. No symptoms at this time. Last dental exam: overdue. Will schedule. CVD,PVD,CAD: HTN, HLD,CVA Statin: repatha injections. Aspirin: yes ACEI/ARB: candesartan 32 mg Prior visit with airport operations manager: yes, JALEN Hyman. Foot care: self, [...] % Final No results found for: MICROALBUR, [id number] Lab Results Component Value Date NA 137 11/23/2019 K 5.1 (H) 11/23/2019 CL 108 11/23/2019 CO2 20 (L) 11/23/2019 BUN 26 11/23/2019 GLU 199 (H) 11/23/2019 CA 11.2 (H) 11/23/2019 Joanna Hart is a 70 y.o. female who presented to the clinic for a follow-up in [facility], with a history of DM for 14 yrs. Problem List Items Addressed This Visit Endocrine/Metabolic Diabetes mellitus, type 2 ([facility]) - Primary Uncontrolled A1C 8.4 Start [...] Has visit next week with podiatry in [facility] with Dr. Novoa. Relevant Medications dapagliflozin 5 [...] Associated Problem(s): Stage 3b chronic kidney disease ([facility]) Doing well on lower dose metformin. Continue candesartan 32 mg. Will recheck GFR at f/up. Discussed nephrology consult pending results. MALB 340. * Assessment & Plan Note - Sarika Zamudio APRN - 08/07/2020 1418 EST Associated Problem(s): Diabetes mellitus, type 2 ([facility]) Uncontrolled A1C 8.4 Start ozempic [...] Has visit next week with podiatry in [facility] with Dr. Novoa. documented in this encounter Plan of Treatment Upcoming Encounters Date Type Department Care Team (Late st Contact Info) Description 03/08/2024 9:30 EDT Ancillary Procedure [facility] [place] [address] 03/08/2024 10:15 EDT Ancillary Procedure [facility] [place] [address] 04/05/2024 10:[address] [facility] [address] [place] [address] 04/05/2024 10:[address] [facility] [address] [place] [address] Carlos Ha NP 130 [facility]-A [address] [place] [address] documented as of this encounter Visit Diagnoses Diagnosis Type 2 diabetes mellitus with hyperglycemia, with long-term current use of insulin ([facility])- Primary Stage 3b chronic kidney disease ([facility]) Essential hypertension Unspecified essential hypertension [...] 10/02/2020 added in this encounter Care Teams Senior Clinical Research Associate Relationship Specialty Start Date End Date Bryant Crain MD [address] [place], [place] [phone] PCP - General 05/04/15 05/17/23 documented as of this encounter
--- OUTSIDE RECORDS SUMMARY | 2024-01-14 11:11 | XMS_ITS | Encounter Summary ---
Author Organization [facility] Address [address] [place] [address] Care Team Providers Care Cash Register Servicer Name Role Phone Bryant Crain MD Primary Care Provider [phone] Carlos Ha DEPUTY EDITOR IN CHIEF Unavailable [phone] Elba Jett MD Primary Care Provider [phone] Encounter Details Date Type Department Care Team (Late st Contact Info) Description 08/31/2020 Lab Requisition [facility] Pathology & Laboratory Medicine - [address] [address] Outr Resulting Lab, Provider Social [...] [facility] Card[facility] - [facility] [place], [place] [id number] 03/08/2024 10:15 EDT Ancillary Procedure [facility] Cardiology - [facility] [place], [place] [id number] 04/05/2024 10:00 EDT Ancillary Procedure [facility] Cardiology Clinic [address] [place] [id number] 04/05/2024 10:00 EDT Office Visit [facility] Cardiology Clinic [address] [place] [address] [phone] Carlos Ha NP 130 [facility] [address] [phone] documented as of this encounter Procedures Procedure Name Priority Date/Time Associated Diagnosis Comments PTH INTACT Routine 08/30/2020 11:15 EST documented in this encounter Results * (ABNORMAL) PTH INTACT (08/30/2020 11:15 EST) Intact PTH 100(H) 19 - 88 pg/mL 09/02/2020 9:28 EDT [facility] Blood VENOUS BLOOD / Unknown 08/30/2020 11:15 EST 09/01/2020 16:27 EDT Provider Outr Resulting Lab CHEMISTRY & BLOOD GAS ORDERABLES [facility] [address] [place] [address] documented in this encounter Visit Diagnoses Not on filedocumented in this encounter Care Teams Cash Register Servicer Relationship Specialty Start Date End Date Bryant Crain MD [address] [place], [place] [phone] PCP - General 05/04/15 05/17/23 Elba Jett MD [address] [place] [phone] PCP - General Family Medicine - Primary Care 05/18/23 Carlos Ha NP [address] [place] [address] [phone] Consulting Clinician Cardiovascular Disease 09/14/21 documented as of this encounter
--- OUTSIDE RECORDS SUMMARY | 2024-01-14 11:11 | XMS_ITS | Encounter Summary ---
Author Organization [facility] Address [address] [place] [address] Care Team Providers Care Coordinator Mining Products Name Role Phone Bryant Crain MD Primary Care Provider [phone] Carlos Ha TOWEL FOLDER Unavailable [phone] Reason for Visit * Reason Onset Date Comments Discuss Possible Transfer 11/11/2022 Encounter Details Date Type Department Care Team (Late st Contact Info) Description 11/11/2022 Telephone [facility] General Medicine Unit [address] [place] [address] Mauri Pizano MD [address] [address] Discuss Possible Transfer Social History [...] 11/11/2022 0822 EDT 11/11/2022 Internal Medicine Hospitalist [facility] 72 yo female intermittent 2nd degree [...] Procedure [facility] Cardiology - [facility] [place] [address] 03/08/2024 10:15 EDT Ancillary Procedure [facility] Cardiology - [place] [address] 04/05/2024 10:00 EDT Ancillary Procedure [facility] Cardiology Clinic [address] [place] [address] 04/05/2024 10:00 EDT Office Visit [facility] Cardiology Clinic [address] [place], [place] [phone] Carlos Ha NP 130 [facility] [address] [place] [phone] documented as of this encounter Visit Diagnoses Not on filedocumented in this encounter Care Teams Coordinator Mining Products Relationship Specialty Start Date End Date Bryant Crain MD [address] [place], [place] [phone] PCP - General 05/04/15 05/17/23 Carlos Ha NP 130 [facility] [address] [place] [phone] Consulting Clinician Cardiovascular Disease 09/14/21 documented as of this encounter
--- OUTSIDE RECORDS SUMMARY | 2024-01-14 11:11 | XMS_ITS | Encounter Summary ---
Author Organization [facility] Address [address] [place] [address] Care Team Providers Care Scalper Operator Name Role Phone Bryant Crain MD Primary Care Provider [phone] Reason for Visit * Reason Onset Date Comments Medications Refill 10/29/2020 Encounter Details Date Type Department Care Team (Late st Contact Info) Description 10/29/2020 Refill [facility] Endocrinology [address] [place] [address] Heidi Moore RN Medications Refill Social History [...] End Da te flash glucose sensor (FREESTYLE MELANEI 2 SENSOR) kit 1 [facility] (non-drug; combo route) route every 14 days. [...] Ancillary Procedure [facility] Cardiology [place] [address] [place], [place] [id number] 03/08/2024 10:15 EDT Ancillary Procedure [facility] Cardiology [place] [address] [place], [place] [id number] 04/05/2024 10:00 EDT Ancillary Procedure [facility] Cardiology Clinic [address] [place] [phone] 04/05/2024 10:00 EDT Office Visit [facility] Cardiology Clinic [address] [place] [phone] Carlos Ha NP 130 [facility]-A [address] [place] [phone] documented as of this encounter Visit Diagnoses Not on filedocumented in this encounter Discontinued Medications Medication Sig Discontinue Reason Start Date End Da te flash glucose sensor (FREESTYLE MELANIE 14 DAY SENSOR) kitIndications:Type 2 diabetes mellitus with hyperglycemia, with long-term current use of insulin ([facility]) 1 application by misc (non-drug; combo route) route continuous. 10/02/2020 10/29/2020 documented as of this encounter Care Teams Scalper Operator Relationship Specialty Start Date End Date Bryant Crain MD [address] [place], [place] [phone] PCP - General 05/04/15 05/17/23 documented as of this encounter
--- OUTSIDE RECORDS SUMMARY | 2024-01-14 11:11 | XMS_ITS | Encounter Summary ---
Author Organization [facility] Address [address] [place] [address] Care Team Providers Care File Drawer Finisher Name Role Phone Bryant Crain MD Primary Care Provider [phone] Encounter Details Date Type Department Care Team (Late st Contact Info) Description 08/15/2020 Orders Only [facility] Cardiology Clinic [address] [place] [address] Carlos Ha, RAHEEM 130 [facility]-A [address] [place] [address] Cryptogenic stroke (HCC-CMS) (Primary Dx) [...] Info) Description 03/08/2024 9:30 EDT Ancillary Procedure [facility] Cardiology - [facility] [address] [place] [address] 03/08/2024 10:15 EDT Ancillary Procedure [facility] Cardiology - [facility] [address] [place] [address] 04/05/2024 10:00 EDT Ancillary Procedure [facility] Cardiology Clinic [address] [place] [phone] 04/05/2024 10:00 EDT Office Visit [facility] Cardiology Clinic [address] [place] [address] [phone] Carlos Ha NP 130 [facility]-A [address] [place] [phone] documented as of this encounter Visit Diagnoses Diagnosis Cryptogenic stroke ([facility])- Primary Unspecified cerebral artery occlusion with cerebral infarction documented in this encounter Care Teams File Drawer Finisher Relationship Specialty Start Date End Date Bryant Crain MD [address] [place], [place] [phone] PCP - General 05/04/15 05/17/23 documented as of this encounter
--- OUTSIDE RECORDS SUMMARY | 2024-01-14 11:11 | XMS_ITS | Encounter Summary ---
Author Organization [facility] Address [address] [place] [address] Care Team Providers Care Granulator Machine Operator Name Role Phone Bryant Crain MD Primary Care Provider [phone] Carlos Ha HAND CLOTH FOLDER Unavailable [phone] Reason for Visit * Reason Comments Follow-up Pacemaker/Device Check Encounter Details Date Type Department Care Team (Latest Contact Info) Description 09/16/2021 11:00 EDT Office Visit [facility] [address] [place] [address] Carlos Ha HAND CLOTH FOLDER 130 [facility] [address] [place] [address] Paroxysmal atrial fibrillation (HCC-CMS) (HCC) [...] this encounter Progress Notes * Carlos Ha, HAND CLOTH FOLDER - 09/16/2021 1100 EDT CC: Follow-up and [...] Diagnosis Date ??? Cerebrovascular accident (CVA) (HCC-CMS) ([facility]) 06/01/2019 ??? Diabetes mellitus, type 2 ([facility]) 01/26/2011 On metformin On metformin ??? Essential hypertension 06/01/2019 ??? Mixed hyperlipidemia 06/05/2019 ??? Nonrheumatic aortic valve stenosis 06/01/2019 ??? Paroxysmal atrial fibrillation (HCC-CMS) ([facility]) 06/01/2019 SH/FH: reviewed and updated MEDICATIONS: [...] VICKY 2 READER) misc 1 Device by [facility] (non-drug; comboroute) route daily. Dispense one reader ??? flash glucose sensor (FREESTYLE VICKY 2 SENSOR) kit 1 Units by [facility] (non- drug; combo route) route [...] ??? Propoxyphene N-Acetaminophen Other reaction(s): Hallucinations ??? Ijoygee-Vmu-Xsy Reductase Inhibitors ??? Trulicity [Dulaglutide] Gi Side [...] intraventricular conduction defect. ECHOCARDIOGRAM 12/18/2020 (completed at [facility]) LV is normal size and function. [...] Relatively well controlled Paroxysmal atrial fibrillation (HCC-CMS) ([facility]) - Primary She is appropriately anticoagulated for stroke risk reduction without bleeding complications. Mixed hyperlipidemia Dilated cardiomyopathy (HCC-CMS) ([facility]) Improved EF on echo 11/2020 (55%) I [...] 09/16/2021 1129 EDTAssociated Problem(s): Paroxysmal atrial fibrillation ([facility]) She is appropriately anticoagulated for stroke risk reduction without bleeding complications. * Assessment & Plan Note - Carlos Ha NP - 09/16/2021 1128 EDTAssociated Problem(s): Essential hypertension Relatively well controlled * Assessment & Plan Note - Carlos Ha NP - 09/16/2021 1127 EDTAssociated Problem(s): Dilated cardiomyopathy ([facility]) Improved EF on echo 11/2020 (55%) documented in this encounter Plan of Treatment Upcoming Encounters Date Type Department Care Team (Late st Contact Info) Description 03/08/2024 9:30 EDT Ancillary Procedure [facility] Cardiology - [facility] [place] [address] 03/08/2024 10:15 EDT Ancillary Procedure [facility] Cardiology [facility] [place] [address] 04/05/2024 10:00 EDT Ancillary Procedure [facility] Cardiology Clinic [address] [place] [address] 04/05/2024 10:00 EDT Office Visit [facility] Cardiology Clinic [address] [place] [phone] Carlos Ha NP [address] [place] [address]-[address] [place] [phone] documented as of this encounter Visit Diagnoses [...] daily. added in this encounter Care Teams Granulator Machine Operator Relationship Specialty Start Date End Date Bryant Crain MD [address] [place] [address] PCP - General 05/04/15 05/17/23 Carlos Ha NP [address] [place] [address] [address] [place] [phone] Consulting Clinician Cardiovascular Disease 09/14/21 documented as of this encounter
--- OUTSIDE RECORDS SUMMARY | 2024-01-14 11:11 | XMS_ITS | Encounter Summary ---
Author Organization [facility] Address [address] [place] [address] Care Team Providers Care Grain Elevator Clerk Name Role Phone Bryant Crain MD Primary Care Provider [phone] Reason for Visit * Reason Onset Date Comments Blood Sugar Problem 07/15/2021 Encounter Details Date Type Department Care Team (Late st Contact Info) Description 07/15/2021 Telephone [facility] Endocrinology [address] [place] [address] Heidi Moore RN Blood Sugar Problem Social [...] Encounter - Heidi Moore RN - 07/15/2021 2613 EST Called with low bg's in the [...] Ancillary Procedure [facility] Cardiology - [address] [place] [address] 03/08/2024 10:15 EDT Ancillary Procedure [facility] Cardiology [address] [place] [address] 04/05/2024 10:00 EDT Ancillary Procedure [facility] Cardiology Clinic [address] [place] [phone] 04/05/2024 10:00 EDT Office Visit [facility] Cardiology Clinic [address] [place] [address] Carlos Ha NP [address] [place] [address]-[address] [place] [phone] documented as of this encounter Visit Diagnoses [...] 07/15/2021 added in this encounter Care Teams Grain Elevator Clerk Relationship Specialty Start Date End Date Bryant Crain MD [address] [place] [address] PCP - General 05/04/15 05/17/23 documented as of this encounter
--- OUTSIDE RECORDS SUMMARY | 2024-01-14 11:11 | XMS_ITS | Encounter Summary ---
Author Organization [facility] Address [address] [place] [address] Care Team Providers Care Cavity Pump Operator Name Role Phone Bryant Crain MD Primary Care Provider [phone] Reason for Visit * (Routine) - Order Cancelled Specialty Diagnoses / Procedures Referred By Charo daniel Referred To Contact Diagnoses Cryptogenic stroke ([facility]) Procedures CARDIAC IMPLANT CHECK - IN CLINIC Carlos Ha NP [address] [facility] [address] [place] [address] Referral ID Status Reason Start Date Expiration Date V isits Requested Visits Authorized [id number] Order Cancelled 06/11/2020 18 18 Encounter Details Date Type Department Care Team (Late st Contact Info) Description 03/14/2021 9:00 EDT Ancillary Procedure [facility] Cardiology Clinic [address] [phone] Social History Tobacco Use Types Packs/Day Years [...] Description 03/08/2024 9:30 EDT Ancillary Procedure [facility] Cardiology - [facility] [address] [place] [address] 03/08/2024 10:15 EDT Ancillary Procedure [facility] Cardiology [facility] [address] [place] [address] 04/05/2024 10:00 EDT Ancillary Procedure [facility] Cardiology Clinic [address] [place] [phone] 04/05/2024 10:00 EDT Office Visit [facility] Clinic [address] [place] [address] [phone] Carlos Ha, RAHEEM [address] [place] [address]-[address] [place] [address] documented as of this encounter Procedures Procedure [...] for devicedetails. Carlos Ha APRN Carlos Ha TONAL REGULATOR CV IMPLANTABLE CARDI AC DEVICE documented in this encounter Visit Diagnoses Not on filedocumented in this encounter Care Teams Cavity Pump Operator Relationship Specialty Start Date End Date Bryant Crain MD [address] [place] [address] PCP - General 05/04/15 05/17/23 documented as of this encounter
--- OUTSIDE RECORDS SUMMARY | 2024-01-14 11:11 | XMS_ITS | Encounter Summary ---
Author Organization [facility] Address [address] [place] [address] Care Team Providers Care Service Worker Helper Name Role Phone Bryant Crain MD Primary Care Provider [phone] Reason for Visit * Reason Comments Follow-up Encounter Details Date Type Department Care Team (Latest Contact Info) Description 10/02/2020 9:[address] [facility] Endocrinology [address] [place] [address] Sarika Zamudio, DEPUTY K 9 130 [facility]- [address] [place] [phone] Type 2 diabetes mellitus with hyperglycemia, with long-term current use of insulin ([facility]) (Primary Dx); Osteopenia after menopause; Hypercalcemia; Primary hyperparathyroidism ([facility]) Social History Tobacco Use Types Packs/Day Years [...] with long-term current use of insulin ([facility]) by misc (non-drug; combo route) route daily. One touch verio meter or best covered by insurance. 1 Each 10/02/2020 semaglutide (OZEMPIC) 1 mg/dose (2 mg/1.5 mL) pen injectorIndications:Typ e 2 diabetes mellitus with hyperglycemia, with long-term current use of insulin ([facility]) Inject 0.75 mL into the skin once a week. 6 Pen 3 10/02/2020 03/06/2021 flash glucose sensor (FREESTYLE LO 14 DAY SENSOR) kitIndications:Type 2 diabetes mellitus with hyperglycemia, with long-term current use of insulin (HCC-CMS) 1 application by misc (non-drug; combo route) route continuous. 6 Kit 3 10/02/2020 10/29/2020 documented in this encounter Progress Notes * Sarika Zamudio, PUBLIC HOUSING MANAGER - 10/02/2020 0945 EDT Reason for Visit: DM f/up PCP: Dr. Crain OTHER PROVIDERS: Carlos Ha, RAHEEM cardiology Joanna Hart is a 70 y.o. female who presented to the clinic for a follow-up in [facility], with a history of DM for [...] today. Has eye visit this week [place], she will fax visit notes. Had visit [...] (within one year): overdue. Has provider in [place] that she prefers. Has not been ableto go d/t COVID. No symptoms at this time. Last dental exam: overdue. Will schedule. CVD,PVD,CAD: HTN, HLD,CVA Statin: repatha injections. Aspirin: yes ACEI/ARB: candesartan 32 mg Prior visit with campaign consultant: yes, JALEN Hyman. Foot care: podiatry Comorbidities: [...] to the clinic for a follow-up in [facility], with a history of DM for 14 yrs. Problem List Items Addressed This Visit Endocrine/Metabolic Diabetes mellitus, type 2 ([facility]) - Primary Controlled A1C 7.1 Congratulated on [...] MANUAL ENTRY POCT HEMOGLOBIN A1C Primary hyperparathyroidism ([facility]) Relevant Orders XR DEXA BONE DENSITY CALCIUM, [...] Get updated DEXA scan at same clinic [facility]. Ordered faxed. Request disk of images to [...] menopause Get updated DEXA scan at same [facility]. Ordered faxed. Request disk of images to [...] EDT Associated Problem(s): Diabetes mellitus, type 2 ([facility]) Controlled A1C 7.1 Congratulated on changes! Increase [...] EDT Ancillary Procedure [facility]iology [place] [address] 03/08/2024 10:15 EDT Ancillary Procedure [facility] Cardiology [facility] [place] [address] 04/05/2024 10:[address] [facility] Cardiology Clinic [address] [place] [id number] 04/05/2024 10:[address] [facility] Cardiology Clinic [address] [place] [address] [phone] Carlos Ha NP [address] [place], [place] [address]A [address] [place] [address] documented as of this encounter Procedures Procedure Name Priority Date/Time Associated Diagnosis Comments POCT HEMOGLOBIN A1C Routine 12/04/2020 Type 2 diabetes mellitus with hyperglycemia, with long-term current use of insulin ([facility]) documented in this encounter Results * (ABNORMAL) POCT HEMOGLOBIN A1C (12/04/2020) Hemoglobin A1c, POC 6.9(A) 5.7 % [facility] POINT OF CARE Blood CAPILLARY BLOOD / Unknown 12/04/2020 Sarika Zamudio NP POINT OF CARE FUNMILAYO T ORDERABLES [facility] POINT OF CARE documented in this encounter Visit Diagnoses Diagnosis Type 2 diabetes mellitus with hyperglycemia, with long-term current use of insulin ([facility])- Primary Osteopenia after menopause Hypercalcemia Primary hyperparathyroidism ([facility]) Primary hyperparathyroidism documented in this encounter Discontinued Medications Medication Sig Discontinue Reason Start Date End Da te blood-glucose meter (ONE TOUCH BASIC SYSTEM MISC) -to test blood sugar - -test 2 x daily 10/02/2020 semaglutide (OZEMPIC) subcutaneous penIndications:Type 2 diabetes mellitus with hyperglycemia, with long-term current use of insulin ([facility]) Inject 0.25 mg into the skin once a week. 08/07/2020 10/02/2020 dapagliflozin 5 mg tablet Take 5 mg by mouth. 10/25/2019 documented as of this encounter Historical Medications * This list may reflect changes made after this encounter. Medication Sig Dispensed Refills Start Date End Date fluorouraciL (EFUDEX) 5 % creamIndications:uses in winter 1 03/06/2021 added in this encounter Care Teams Service Worker Helper Relationship Specialty Start Date End Date Bryant Crain MD [address] [place], [place] [phone] PCP - General 05/04/15 05/17/23 documented as of this encounter
--- OUTSIDE RECORDS SUMMARY | 2024-01-14 11:11 | XMS_ITS | Encounter Summary ---
Author Organization [facility] Address [address] [place] [address] Care Team Providers Care Director School Of Nursing Name Role Phone Bryant Crain MD Primary Care Provider [phone] Encounter Details Date Type Department Care Team (Late st Contact Info) Description 12/09/2020 Orders Only [facility] Cardiology Clinic [address] [place] [id number] Sabrina Herring MA Cryptogenic stroke (HCC-CMS) (Primary [...] Ancillary Procedure [facility] Cardiology - [address] [place] [address] 03/08/2024 10:15 EDT Ancillary Procedure [facility] Cardiology - [address] [place] [address] 04/05/2024 10:00 EDT Ancillary Procedure [facility] Cardiology Clinic [address] [place] [id number] 04/05/2024 10:00 EDT Office Visit [facility] Cardiology Clinic [address] [place], [place] [address] Carlos Ha NP 130 [facility] [place] [address] documented as of this encounter [...] remote download. Carlos Ha APRN Carlos Ha PLANT OPERATIONS ENGINEER CV IMPLANTABLE CARDI AC DEVICE documented in this encounter Visit Diagnoses Diagnosis Cryptogenic stroke (HCC-CMS)- Primary Unspecified cerebral artery occlusion with cerebral infarction documented in this encounter Care Teams Director School Of Nursing Relationship Specialty Start Date End Date Bryant Crain MD [address] [place] [address] PCP - General 05/04/15 05/17/23 documented as of this encounter
--- OUTSIDE RECORDS SUMMARY | 2024-01-14 11:11 | XMS_ITS | Encounter Summary ---
Author Organization [facility] Address [address] [place] [address] Care Team Providers Care Almond Paste Molder Name Role Phone Bryant Crain MD Primary Care Provider [phone] Reason for Visit * Reason Comments Diabetes Encounter Details Date Type Department Care Team (Latest Contact Info) Description 12/04/2020 10:15 EDT Office Visit [facility] Endocrinology [address] [place] [address] Sarika Zamudio, PERSONNEL TRAINING OFFICER 130 [facility]- [address] [place] [phone] Type 2 diabetes mellitus with hyperglycemia, with long-term current use of insulin ([facility]) (Primary Dx); Primary hyperparathyroidism (HCC-CMS); Fatigue, unspecified [...] to the clinic for a follow-up in [facility], with a history of DM for [...] eye exam notes sent over by PCP. [facility] DM: unsure if father had DM 4 [...] (within one year): UTD, sees clinic in [place] Last dental exam: overdue. Will schedule. CVD,PVD,CAD: HTN, HLD,CVA Statin: repatha injections. Aspirin: yes ACEI/ARB: candesartan 32 mg Prior visit with highway patrol pilot: yes, JALEN Hyman. Foot care: podiatry Comorbidities: [...] % Final No results found for: MICROALBUR, [id number] Lab Results Component Value Date NA 137 11/23/2019 K 5.1 (H) 11/23/2019 CL 108 11/23/2019 CO2 20 (L) 11/23/2019 BUN 26 11/23/2019 GLU 199 (H) 11/23/2019 CA 11.2 (H) 11/23/2019 Joanna Hart is a 70 y.o. female who presented to the clinic for a follow-up in [facility], with a history of DM for 14 yrs. Problem List Items Addressed This Visit Endocrine/Metabolic Diabetes mellitus, type 2 ([facility]) - Primary Controlled A1C 6.9. Congratulated on [...] if needed. Relevant Orders VITAMIN B12 URINE [id number] RATIO (ACR) Primary hyperparathyroidism ([facility]) Encouraged to increase hydration 5-6 bottles [...] for further w/up. Will reach out to rehabilitation counselor as well. We did discuss giving her [...] Associated Problem(s): Stage 3b chronic kidney disease ([facility]) Stable. Labs ordered. Pending MALB, GFR will start SGLT. * Assessment & Plan Note - Sarika Zamudio APRN - 12/04/2020 1056 EDT Associated Problem(s): Fatigue ?cardiac vs orthostatic hypotension vs glucose regulation. Has upcoming ECHO scheduled. Discussed checking BP at home with lightheadedness. Has upcoming visit with PCP for further w/up. Will reach out to rehabilitation counselor as well. We did discuss giving her body time to adjust to BG's normalizing, did lower lantus and humalog today. * Assessment & Plan Note - Sarika Zamudio APRN - 12/04/2020 1041 EDT Associated Problem(s): Primary hyperparathyroidism ([facility]) Encouraged to increase hydration 5-6 bottles water/day, this can include tea/crystal light. Will check calcium levels yearly, more often with change in kidney function. * Assessment & Plan Note - Sarika Zamudio APRN - 12/04/2020 1029 EDT Associated Problem(s): Diabetes mellitus, type 2 ([facility]) Controlled A1C 6.9. Congratulated on success! Lower [...] [facility] Cardiology [place] [address] 03/08/2024 10:15 EDT Ancillary Procedure [facility] Cardiology - [address] [place] [address] 04/05/2024 10:00 EDT Ancillary Procedure [facility] Cardiology Clinic [address] [place], [place] [address] 04/05/2024 10:00 EDT Office Visit [facility] Cardiology Clinic [address] [place], [place] [phone] Carlos Ha NP 130 [facility] [place] [phone] documented as of this encounter Visit Diagnoses Diagnosis Type 2 diabetes mellitus with hyperglycemia, with long-term current use of insulin (HCC-CMS)- Primary Primary hyperparathyroidism (HCC-CMS) Primary hyperparathyroidism Fatigue, unspecified type Stage 3b chronic kidney disease (HCC-CMS) documented in this encounter Care Teams Almond Paste Molder Relationship Specialty Start Date End Date Bryant Crain MD [address] [place] [address] PCP - General 05/04/15 05/17/23 documented as of this encounter
--- OUTSIDE RECORDS SUMMARY | 2024-01-14 11:11 | XMS_ITS | Encounter Summary ---
Author Organization [facility] Address [address] [place] [address] Care Team Providers Care Auto Suspension And Steering Mechanic Name Role Phone Bryant Crain MD Primary Care Provider [phone] Encounter Details Date Type Department Care Team (Late st Contact Info) Description 06/11/[address] [facility] Cardiology Clinic [address] [place], [place] [phone] Carlos Ha NP 130 [facility] [address] [place] [address] Cryptogenic stroke (HCC-CMS) (Primary Dx) [...] 03/08/2024 9:30 EDT Ancillary Procedure [facility] Cardiology - [address] [place] [address] 03/08/2024 10:15 EDT Ancillary Procedure [facility] Cardiology - [facility] [address] [place] [address] 04/05/2024 10:[address] [facility] Cardiology Clinic [address] [place] [phone] 04/05/2024 10:[address] [facility] Cardiology Clinic [address] [place] [address] [phone] Carlos Ha, BIRD CAGE ASSEMBLER [address] [facility] [address] [place] [phone] documented as of this encounter Procedures Procedure [...] for devicedetails. Carlos Ha APRN Carlos Ha BIRD CAGE ASSEMBLER CV IMPLANTABLE CARDI AC DEVICE * CARDIAC [...] 020 documented in this encounter Care Teams Auto Suspension And Steering Mechanic Relationship Specialty Start Date End Date Bryant Crain MD [address] [place] [address] PCP - General 05/04/15 05/17/23 documented as of this encounter
--- OUTSIDE RECORDS SUMMARY | 2024-01-14 11:11 | XMS_ITS | Encounter Summary ---
Author Organization [facility] Address [address] [place] [address] Care Team Providers Care Supply Chain Design Manager Name Role Phone Bryant Crain MD Primary Care Provider [phone] Carlos Ha GLAZIER STAINED GLASS Unavailable [phone] Reason for Visit * (Routine/Next Available) - Receiving Office to Obtain Authorization Specialty Diagnoses / Procedures Referred By Charo daniel Referred To Contact Procedures XR OUTSIDE IMAGES CHEST Imaging, External Referral ID Status Reason Start Date Expiration Date Visits Requested Visits Authorized [id number] Receiving Office to Obtain Authorization 11/11/2022 1 1 Encounter Details Date Type Department Care Team (Latest Contact Info) Description 11/10/2022 - 11/10/2022 23:59 EDT Hospital Encounter [facility] Secondary Reads [place] Discharge Disposition: Home or [...] hyperglycemia, with long-term current use of insulin ([facility]) by [facility] (non-drug; combo route) route daily. One touch verio meter or best covered by insurance. 1 Each 10/02/2020 cetirizine (ZYRTEC) 10 mg tablet Take 1 Tablet by mouth daily. Cholecalciferol, Vitamin D3, 10 mcg (400 unit) tablet Take 1 Tablet by mouth daily. cyanocobalamin (VITAMIN B-12) 500 mcg tablet Take 1 Tablet by mouth daily. flash glucose scanning reader (FREESTYLE VICKY 2 READER) [facility] 1 Device by [facility] (non-drug; combo route) route daily. Dispense one [...] 01/18/2020 lancets/blood glucose strips (ONE TOUCH [facility]) -to test blood sugar - [...] Info) Description 03/08/2024 9:30 EDT Ancillary Procedure [facility] Cardiology - [facility] [place] [address] 03/08/2024 10:15 EDT Ancillary Procedure [facility] Cardiology [address] [address] [place] [address] 04/05/2024 10:00 EDT Ancillary Procedure [facility] Cardiology Clinic [address] [place] [phone] 04/05/2024 10:00 EDT Office Visit [facility] Cardiology Clinic [address] [place] [address] [phone] Carlos Ha NP [address] [place] [address]-[address] [place] [address] documented as of this encounter [...] on filedocumented in this encounter Care Teams Supply Chain Design Manager Relationship Specialty Start Date End Date Bryant Crain MD [address] [place], [place] [phone] PCP - General 05/04/15 05/17/23 Carlos Ha NP [address] [place] [address] [place] [phone] Consulting Clinician Cardiovascular Disease 09/14/21 documented as of this encounter
--- OUTSIDE RECORDS SUMMARY | 2024-01-14 11:11 | XMS_ITS | Encounter Summary ---
Author Organization [facility] Address [address] [place] [address] Care Team Providers Care Cheese Pancake Roller Name Role Phone Bryant Crain MD Primary Care Provider [phone] Reason for Visit * Reason Onset Date Comments COVID-19 09/19/2020 Encounter Details Date Type Department Care Team (Late st Contact Info) Description 09/19/2020 Telephone [facility] Cardiology Clinic [address] [place] [address] Carlos Ha, RAHEEM 130 [facility] [address] [phone] COVID-19 Social History Tobacco Use [...] or change to telemedicine appointment. Transferred to senior front end web developer to do so. * Telephone Encounter - [...] Ancillary Procedure [facility] Cardiology - [address] [place], [place] [phone] 03/08/2024 10:15 EDT Ancillary Procedure [facility] Cardiology - [address] [address] [place] [address] 04/05/2024 10:00 EDT [facility] [address] [place] [phone] 04/05/2024 10:00 EDT Office Visit [facility] [address] [place] [phone] Carlos Ha NP [address] [place] [address] [place] [address] documented as of this encounter Visit Diagnoses Not on filedocumented in this encounter Care Teams Cheese Pancake Roller Relationship Specialty Start Date End Date Bryant Crain MD [address] [place] [address] PCP - General 05/04/15 05/17/23 documented as of this encounter
--- OUTSIDE RECORDS SUMMARY | 2024-01-14 11:11 | XMS_ITS | Encounter Summary ---
Author Organization [facility] Address [address] [place] [address] Care Team Providers Care Commercial Lending Vice President Name Role Phone Bryant Crain MD Primary Care Provider [phone] Reason for Visit * Reason Onset Date Comments Labs Only 11/08/2020 Encounter Details Date Type Department Care Team (Late st Contact Info) Description 11/08/2020 Telephone [facility] Endocrinology [address] [place] [address] Sarika Zamudio, STORE COORDINATOR 130 [facility]- [address] [place] [phone] Labs Only Social History Tobacco Use [...] Miscellaneous Notes * Telephone Encounter - Sarika Zamuido, JUSTIN - 11/08/2020 1313 EDT Reviewed recent urine and BMD, normal. Encouraged hydration! Monitor calcium yearly. Denies arthritis. Notes having [facility] of hypercalcemia. She did get Lo 2 CGM. BG 90-260 She did increase her ozempic 1 mg and tolerating this fine. Will review CGM data on next visit. documented in this encounter Plan of Treatment Upcoming Encounters Date Type Department Care Team (Late st Contact Info) Description 03/08/2024 9:30 EDT Ancillary Procedure [facility] Cardiology - [address] [place] [address] 03/08/2024 10:15 EDT Ancillary Procedure [facility] Cardiology - [address] [place] [address] 04/05/2024 10:00 EDT Ancillary Procedure [facility] Cardiology Clinic [address] [place] [phone] 04/05/2024 10:00 EDT Office Visit [facility] Cardiology Clinic [address] [place] [address] Carlos Ha, RAHEEM 130 [facility]-A [address] [place] [phone] documented as of this encounter Visit Diagnoses Not on filedocumented in this encounter Care Teams Commercial Lending Vice President Relationship Specialty Start Date End Date Bryant Crain MD [address] [place], [place] [phone] PCP - General 05/04/15 05/17/23 documented as of this encounter
--- OUTSIDE RECORDS SUMMARY | 2024-01-14 11:11 | XMS_ITS | Encounter Summary ---
Author Organization [facility] Address [address] [place] [address] Care Team Providers Care Petroleum Refining Equipment Operator Name Role Phone Bryant Crain MD Primary Care Provider [phone] Reason for Referral * Consult (Routine) - Closed Specialty Diagnoses / Procedures Referred By Charo daniel Referred To Contact Orthopedic Surgery Diagnoses Type 2 diabetes mellitus with hyperglycemia, with long-term current use of insulin ([facility]) Sarika Zamudio NP [address] [facility] [address] [place] [address] [facility] [address] [place] [address] Referral ID Status Reason Start Date Expiration Date V isits Requested Visits Authorized [id number] Closed Specialty Services Required 07/10/2020 1 1 Question Answer Reason for Request: TIIDM Reason for Visit * Reason Comments Diabetes Encounter Details Date Type Department Care Team (Late st Contact Info) Description 07/10/2020 11:15 EST Office Visit [facility] Endocrinology [address] [place] [address] Sarika Zamudio NP [address] [facility] [address] [place] [address] Type 2 diabetes mellitus with hyperglycemia, with long-term current use of insulin ([facility]) (Primary Dx); Essential hypertension; Mixed hyperlipidemia; Stage [...] to the clinic for a follow-up in [facility], with a history of DM for [...] visits d/t this. Sees a urologist in [facility] for chronic concerns. [facility] DM: unsure if father had DM [...] ACEI/ARB: candesartan 32 mg Prior visit with validation engineer: yes, JALEN [place]. Foot care: self, would [...] % Final No results found for: MICROALBUR, [id number] Lab Results Component Value Date NA 137 11/23/2019 K 5.1 (H) 11/23/2019 CL 108 11/23/2019 CO2 20 (L) 11/23/2019 BUN 26 11/23/2019 GLU 199 (H) 11/23/2019 CA 11.2 (H) 11/23/2019 Joanna Hart is a 70 y.o. female who presented to the clinic for a follow-up in [facility], with a history of DM for [...] unit/mL injectable pen Other Relevant Orders URINE [id number] RATIO (ACR) COMPREHENSIVE METABOLIC PANEL (CMP) LIPID PROFILE (INCLUDES CHOLESTEROL, TRIGLYCERIDES, HDL, LDL) POCT GLUCOSE, MANUAL ENTRY (Completed) POCT HEMOGLOBIN A1C (Completed) AMB CONS/FOLLOW UP PODIATRY Genitourinary/Reproductive Stage 3b chronic kidney disease GFR 44. Decrease metformin xr to 750 mg BID. Will continue to decrease and monitor kidney function. Cardiac/Vasculature Essential hypertension Normotensive today. Continue current regimen. Managed by cardiology, PACKAGING SPECIALIST Ha. Mixed hyperlipidemia Controlled on repatha. Patient [...] Associated Problem(s): Stage 3b chronic kidney disease ([facility]) GFR 44. Decrease metformin xr to 750 mg BID. Will continue to decrease and monitor kidney function. * Assessment & Plan Note - Sarika Zamudio APRN - 07/10/2020 1204 EST Associated Problem(s): Diabetes mellitus, type 2 ([facility]) Decrease metformin 750 mg BID Switch lantus [...] [facility] [address] [place] [address] 03/08/2024 10:15 EDT Ancillary Procedure [facility] Cardiology - [place] [address] [place] [address] 04/05/2024 10:00 EDT Ancillary Procedure [facility] [address] [place] [address] [id number] 04/05/2024 10:00 EDT Office Visit [facility] [address] [place] [address] [id number] Carlos Ha NP [address] [place] [address]-A [address] [place] [phone] Scheduled Referrals Name Type Priority Associated Diagnoses Orde r Schedule AMB CONS/FOLLOW UP PODIATRY Outpatient Referral Routine Type 2 diabetes mellitus with hyperglycemia, with long-term current use of insulin ([facility]) Ordered: 07/10/2020 documented as of this encounter Procedures Procedure Name Priority Date/Time Associated Diagnosis Comments MICROALBUMIN, URINE Routine 07/10/2020 1 1:01 EST Type 2 diabetes mellitus with hyperglycemia, with long-term current use of insulin ([facility]) POCT GLUCOSE, MANUAL ENTRY Routine 07/10/2020 Type 2 diabetes mellitus with hyperglycemia, with long-term current use of insulin ([facility]) POCT HEMOGLOBIN A1C Routine 07/10/2020 Type 2 diabetes mellitus with hyperglycemia, with long-term current use of insulin ([facility]) documented in this encounter Results * (ABNORMAL) MICROALBUMIN, URINE (07/10/2020 11:01 EST) Albumin, Urine 43.70(H) <1.7 mg/dL 07/10/2020 17:31 EST [facility] Lab Urine Albumin to Creatinine Ratio 375.4 ug/mg 07/10/2020 17:31 EST [facility] Comment: Normal: <30 ug/mg Creat Microalbuminuria: 30-300 ug/mg Creat Clinical albuminuria: >300 ug/mg Creat Creatinine, Urine 116.40 mg/dL 07/10/2020 16:44 EST [facility] 07/10/2020 11:0 1 EST 07/10/2020 15:30 EST Sarika Zamudio NP HEMATOLOGY & PF4 ORDERABLES Performing Organization Address City/[facility]/ZIP Co de Phone Number [facility] [address] [place] [address] * (ABNORMAL) POCT HEMOGLOBIN A1C (07/10/2020) Hemoglobin A1c, POC 8.4(A) 5.7 % [facility] POINT OF CARE Blood CAPILLARY BLOOD / Unknown 07/10/2020 Sarika Zamudio NP POINT OF CARE FUNMILAYO T ORDERABLES [facility] POINT OF CARE * (ABNORMAL) POCT GLUCOSE, MANUAL ENTRY (07/10/2020) Glucose, POC 185(A) 70 - 100 mg/dL [facility] POINT OF CARE HN LAB POC COMMENT MANUAL (GLUCOSE) [facility] POINT OF market research senior project manager ID [id number] POIN T OF CARE Blood CAPILLARY BLOOD / Unknown 07/10/2020 Sarika Zamudio NP POINT OF CARE FUNMILAYO T ORDERABLES [facility] POINT OF CARE documented in this encounter Visit Diagnoses Diagnosis Type 2 diabetes mellitus with hyperglycemia, with long-term current use of insulin ([facility])- Primary Essential hypertension Unspecified essential hypertension Mixed hyperlipidemia Stage 3b chronic kidney disease ([facility]) documented in this encounter Discontinued Medications [...] 05/31/2020 added in this encounter Care Teams Petroleum Refining Equipment Operator Relationship Specialty Start Date End Date Bryant Crain MD [address] [place] [address] PCP - General 05/04/15 05/17/23 documented as of this encounter
--- OUTSIDE RECORDS SUMMARY | 2024-01-14 11:11 | XMS_ITS | Encounter Summary ---
Author Organization [facility] Address [address] [place] [address] Care Team Providers Care Wood Heel Cementer Name Role Phone Bryant Crain MD Primary Care Provider [phone] Encounter Details Date Type Department Care Team (Late st Contact Info) Description 11/04/[address] [facility] - [facility] Endocrinology [address] [place] [address] Sarika Zamudio, STAFF COUNSELOR [address] [facility] [address] [place] [address] Social History Tobacco Use Types [...] Ancillary Procedure [facility] Cardiology - [address] [place], [place] [id number] 03/08/2024 10:15 EDT Ancillary Procedure [facility] Cardiology - [address] [place], [place] [id number] 04/05/2024 10:00 EDT Ancillary Procedure [facility] Card[facility] Clinic [address] [place] [address] [id number] 04/05/2024 10:00 EDT Office Visit [facility] Cardiology Clinic [address] [place] [address] Carlos Ha NP [address] [place] [address]A [address] [place] [phone] documented as of this encounter Procedures Procedure Name Priority Date/Time Associated Diagnosis Comments URINE COLLECTION TIME - [facility] Routine 11/04/2020 8:15 EDT URINE COLLECTION TIME - [facility] Routine 11/04/2020 8:15 EDT URINE INFORMATION Routine 11/04/2020 8:1 5 EDT URINE INFORMATION Routine 11/04/2020 8:1 5 EDT CALCIUM, URINE 24HR Routine 11/04/2020 8 :15 EDT CREATININE, URINE 24HR Routine 11/04/2020 8:15 EDT documented in this encounter Results * URINE INFORMATION (11/04/2020 8:15 EDT) Urine Volume 750 mL 11/04/2020 10:51 EDT [facility] 11/04/2020 8:15 EDT 11/04/2020 10:23 EDT Sarika Zamudio STAFF COUNSELOR URINALYSIS ORDERA BLES Performing Organization Address [facility]/ZIP Co de Phone Number [facility] [address] [place] [address] * URINE COLLECTION TIME - CV (11/04/2020 8:15 EDT) URINE COLLECTION TIME - CV 24 HOURS 11/04/2020 10:51 EDT [facility] 11/04/2020 8:15 EDT 11/04/2020 10:23 EDT Sarika Zamudio STAFF COUNSELOR HEMATOLOGY & PF4 ORDERABLES Performing Organization Address [facility] Co de Phone Number [facility] [address] [place] [address] * CALCIUM, URINE 24HR (11/04/2020 8:15 EDT) Pathologist [facility] Calcium, Urine 24 hr 230 42 - 353 mg/24hrs 11/04/2020 11:17 EDT [facility] 11/04/2020 8:15 EDT 11/04/2020 10:23 EDT Sarika Zamudio STAFF COUNSELOR URINALYSIS ORDERA BLES Performing Organization Address [facility]/ZIP Co de Phone Number [facility] [address] [place] [address] * URINE INFORMATION (11/04/2020 8:15 EDT) URINE TOTAL VOLUME - [facility] 750 mL 11/04/2020 10:52 EDT [facility] 11/04/2020 8:15 EDT 11/04/2020 10:23 EDT Sarika aZmudio STAFF COUNSELOR URINALYSIS ORDERA BLES Performing Organization Address [facility]/ZIP Co de Phone Number [facility] [address] [place] [address] * URINE COLLECTION TIME - CV (11/04/2020 8:15 EDT) URINE COLLECTION TIME - [facility] 24 HOURS 11/04/2020 10:52 EDT [facility] 11/04/2020 8:15 EDT 11/04/2020 10:23 EDT Sarika Zamudio NP HEMATOLOGY & PF4 ORDERABLES Performing Organization Address City/[facility] Co de Phone Number [facility] [address] [place] [address] * CREATININE, URINE 24HR (11/04/2020 8:15 EDT) Creatinine, Urine 24 hr 0.94 0.6 - 2.49 g/24hr 11/04/2020 11:17 EDT [facility] 11/04/2020 8:15 EDT 11/04/2020 10:23 EDT Sarika Zamudio NP URINALYSIS ORDERA BLES Performing Organization Address City/[facility] Co de Phone Number [facility] [address] [place] [address] documented in this encounter Visit Diagnoses Not on filedocumented in this encounter Care Teams Wood Heel Cementer Relationship Specialty Start Date End Date Bryant Crain MD [address] [place] [address] PCP - General 05/04/15 05/17/23 documented as of this encounter
--- OUTSIDE RECORDS SUMMARY | 2024-01-14 11:11 | XMS_ITS | Encounter Summary ---
Author Organization [facility] Address [address] [place] [address] Care Team Providers Care Class A Truck Driver Name Role Phone Bryant Crain MD Primary Care Provider [phone] Encounter Details Date Type Department Care Team (Latest Contact Info) Description 08/01/2021 9:55 EST Phlebotomy Only [facility] - Outpatient Phlebotomy Drawing [address] [place] [address] Lab, [facility] Phlebotomy Primary hyperparathyroidism ([facility]); Type 2 diabetes mellitus with hyperglycemia, with long-term current use of insulin (HCC-CMS) ([facility]) Social History Tobacco Use Types Packs/Day [...] 9:[address] [facility] [place]iology [place] [address] 03/08/2024 10:[address] [facility] [place] [address] 04/05/2024 10:[address] [facility] Cardiology Clinic [address] [place] [address] [id number] 04/05/2024 10:[address] [facility] Cardiology Clinic [address] [place] [address] Carlos Ha NP [address] [place] [address]-A [address] [place] [phone] documented as of this encounter Procedures Procedure Name Priority Date/Time Associated Diagnosis Comments VITAMIN D (25,OH) Routine 08/01/2021 10:02 EST Primary hyperparathyroidism ([facility]) PHOSPHORUS Routine 08/01/2021 10:02 EST Primary hyperparathyroidism ([facility]) MAGNESIUM Routine 08/01/2021 10:02 EST Primary hyperparathyroidism ([facility]) VITAMIN B12 Add-On 08/01/2021 10:02 EST Type 2 diabetes mellitus with hyperglycemia, with long-term current use of insulin ([facility]) ([facility]) LIPID PROFILE (INCLUDES CHOLESTEROL, TRIGLYCERIDES, HDL, LDL) Routine 08/01/2021 10:02 EST Type 2 diabetes mellitus with hyperglycemia, with long-term current use of insulin ([facility]) ([facility]) COMPREHENSIVE METABOLIC PANEL (CMP) Routine 08/01/2021 10:02 EST Primary hyperparathyroidism ([facility]) documented in this encounter Results * (ABNORMAL) VITAMIN B12 (08/01/2021 10:02 EST) Vitamin B12 172(L) 211 - 911 pg/mL 08/05/2021 14:46 EST [facility] Blood VENOUS BLOOD / Unknown Venipuncture / Unknown 08/01/2021 10:02 EST 08/01/2021 11:04 EST Narrative [facility] - 08/05/2021 14:46 EST The results of this assay can be falsely elevated due to the consumption of Biotin. Sarika Zamudio NP CHEMISTRY & BLOOD GAS ORDERABLES Performing Organization Address [facility]/ZIP Co de Phone Number [facility] [address] [place] [address] * VITAMIN D (25,OH) (08/01/2021 10:02 EST) 25OH Vitamin D Tot 30 30 - 100 ng/mL 08/01/2021 11:52 EST [facility] Blood VENOUS BLOOD / Unknown Venipuncture / Unknown 08/01/2021 10:02 EST 08/01/2021 11:04 EST Sarika Zamudio NP CHEMISTRY & BLOOD GAS ORDERABLES Performing Organization Address City/[facility]/ZIP Co de Phone Number [facility] [address] [place] [address] * PHOSPHORUS (08/01/2021 10:02 EST) Phosphorus 3.4 2.5 - 4.5 mg/dL 08/01/2021 11:35 EST [facility] Blood VENOUS BLOOD / Unknown Venipuncture / Unknown 08/01/2021 10:02 EST 08/01/2021 11:04 EST Sarika Zamudio NP CHEMISTRY & BLOOD GAS ORDERABLES Performing Organization Address City/[facility]/ZIP Co de Phone Number [facility] [address] [place] [address] * MAGNESIUM (08/01/2021 10:02 EST) Magnesium 1.9 1.7 - 2.8 mg/dL 08/01/2021 11:35 [facility] Blood VENOUS BLOOD / Unknown Venipuncture / Unknown 08/01/2021 10:02 EST 08/01/2021 11:04 EST Sarika Zamudio NP CHEMISTRY & BLOOD GAS ORDERABLES [facility] [address] [place] [address] * LIPID PROFILE (INCLUDES CHOLESTEROL, TRIGLYCERIDES, HDL, [...] & BLOOD GAS ORDERABLES Performing Organization Address City/State/[facility] Co de Phone Number [facility] [address] [place] [address] * (ABNORMAL) COMPREHENSIVE METABOLIC PANEL (CMP) (08/01/2021 [...] 10:02 EST 08/01/2021 11:04 EST Sarika Zamudio NURSE REVIEWER CHEMISTRY & BLOOD GAS ORDERABLES Performing Organization Address City/State/[facility] Co de Phone Number [facility] [address] [place] [address] documented in this encounter Visit Diagnoses Diagnosis Primary hyperparathyroidism (HCC-CMS) Primary hyperparathyroidism Type 2 diabetes mellitus with hyperglycemia, with long-term current use of insulin ([facility]) documented in this encounter Care Teams Class A Truck Driver Relationship Specialty Start Date End Date Bryant Crain MD [address] [place] [address] PCP - General 05/04/15 05/17/23 documented as of this encounter
--- OUTSIDE RECORDS SUMMARY | 2024-01-14 11:11 | XMS_ITS | Encounter Summary ---
Author Organization [facility] Address [address] [place] [address] Care Team Providers Care Therapeutic Mentor Name Role Phone Bryant Crain MD Primary Care Provider [phone] Carlos Ha TAKE OFF WORKER Unavailable [phone] Encounter Details Date Type Department Care [...] Procedure [facility] Cardiology - [facility] [address] [place] [address] 03/08/2024 10:15 EDT Ancillary Procedure [facility] Cardiology - [place] [address] [place] [address] 04/05/2024 10:00 EDT Ancillary Procedure [facility] Cardiology Clinic [address] [place] [address] [id number] 04/05/2024 10:00 EDT Office Visit [facility] Cardiology Clinic [address] [place] [address] Carlos Ha NP [address] [place] [phone] documented as of this encounter Visit Diagnoses Not on filedocumented in this encounter Care Teams Therapeutic Mentor Relationship Specialty Start Date End Date Bryant Crain MD [address] [place], [place] [phone] PCP - General 05/04/15 05/17/23 Carlos Ha NP [address] [place] [phone] Consulting Clinician Cardiovascular Disease 09/14/21 documented as of this encounter
--- OUTSIDE RECORDS SUMMARY | 2024-01-14 11:11 | XMS_ITS | Encounter Summary ---
Author Organization [facility] Address [address] [place] [address] Care Team Providers Care Electromyographic Technician Name Role Phone Bryant Crain MD Primary Care Provider [phone] Reason for Visit * Reason Comments Diabetes Encounter Details Date Type Department Care Team (Late st Contact Info) Description 08/05/2021 13:00 EST Office Visit [facility] Endocrinology [address] [place] [address] Sarika Zamudio, ELECTRONIC PREPRESS OPERATOR 130 [facility]- [address] [place] [phone] Type 2 diabetes mellitus with hyperglycemia, with long-term current use of insulin ([facility]) ([facility]) (Primary Dx); Stage 3b chronic kidney disease (HCC); Hypercalcemia; Essential hypertension; Mixed hyperlipidemia; 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 Crain OTHER PROVIDERS: Carlos Ha NP cardiology Joanna Hart is a 71 y.o. female who presented to the clinic for a follow-up in [facility], with a history of DM for 14 [...] having as many lows with this changes. [facility] DM: unsure if father had DM 4 of her siblings have [facility] Recent A1C: 6.3 (07/2021) 7 (02/2021) 6.9 [...] (within one year): UTD, sees clinic in [place] Last dental exam: overdue. Will schedule. CVD,PVD,CAD: HTN, HLD,CVA Statin: repatha injections, controlled 2021. Aspirin: yes ACEI/ARB: candesartan 32 mg Prior visit with preschool director: yes, JALEN Hyman. Foot care: podiatry Comorbidities: [...] content normal. CGM INTERPRETATION Type of CGM: Rapid Vocabulary 2 07/23-08/05/2021 Type of DM: II Diabetic [...] % Final No results found for: MICROALBUR, [id number] Lab Results Component Value Date NA 139 08/01/2021 K 4.9 08/01/2021 CL 105 08/01/2021 CO2 25 08/01/2021 BUN 24 08/01/2021 GLU 199 (H) 11/23/2019 CA 11.2 (H) 11/23/2019 Joanna Hart is a 71 y.o. female who presented to the clinic for a follow-up in [facility], with a history of DM for 14 yrs. 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 MALB today. Given [facility] program info to see if qualifies. Relevant Medications empagliflozin (JARDIANCE) 10 mg tablet Other Relevant Orders VITAMIN B12 URINE MJUFFDO-ES-NQLHDNFTCY RATIO (ACR) Genitourinary/Reproductive Stage 3b chronic kidney [...] Assessment & Plan Note - Sarika Zamudio, MANUFACTURING INTERN - 08/05/2021 1342 EST Associated Problem(s): Hypercalcemia Josesito. * Assessment & Plan Note - Sarika Zamudio APRN - 08/05/2021 1342 EST Associated Problem(s): Stage 3b chronic kidney disease ([facility]) Josesito. * Assessment & Plan Note - Sarika Zamudio, JUSTIN - 08/05/2021 1320 EST Associated Problem(s): Diabetes mellitus, type 2 ([facility]) Controlled A1C 6.3 Congratulated on [...] persistently or elevations >200. MALB today. Given [facility] program info to see if qualifies. documented in this encounter Plan of Treatment Upcoming Encounters Date Type Department Care Team (Late st Contact Info) Description 03/08/2024 9:30 EDT Ancillary Procedure [facility] Cardiology - [address] [place] [address] 03/08/2024 10:15 EDT Ancillary Procedure [facility] Cardiology - [address] [place] [address] 04/05/2024 10:00 EDT Ancillary Procedure [facility] Cardiology Clinic [address] [place] [address] 04/05/2024 10:00 EDT Office Visit [facility] Cardiology Clinic [address] [place] [address] Carlos Ha NP 130 [facility] MOB-A [address] [place] [address] documented as of this encounter Procedures Procedure Name Priority Date/Time Associated Diagnosis Comments URINE FUDGNFI-CN-YGFBUQALH E RATIO (ACR) Routine 08/05/2021 15:07 EST Type 2 diabetes mellitus with hyperglycemia, with long-term current use of insulin ([facility]) ([facility]) HEMOGLOBIN A1C Routine 08/05/2021 documented in this encounter Results * (ABNORMAL) URINE HQMADXU-OP-EVMRYAHKWC RATIO (ACR) (08/05/2021 15:07 EST) Albumin, Urine 47.2 See Note mg/dL 2021 18:46 [facility] Comment: NOTE: Reference range not established Creatinine, Urine 102.8 See Note mg/dL 08/05/2021 18:46 [facility] Comment: NOTE: Reference range not established Lab Urine Albumin to Creatinine Ratio 459(H) <30 ??g/mg Creatinine 08/05/2021 18:46 [facility] Comment: Urine Albumin/Creatinine Ratio: Normal: <30 ug/mg Creatinine Moderately increased albuminuria: 30-300 ug/mg Creatinine Severley increased albuminuria: >300 ug/mg Creatinine Urine URINE SPECIMEN COLLECTION, CLEAN CATCH / Unknown Urine Collect / Unknown 08/05/2021 15:07 EST 08/05/2021 15:07 EST Sarika Zamudio NP CHEMISTRY & BLOOD GAS ORDERABLES [facility] [address] [place] [address] * HEMOGLOBIN A1C (08/05/2021) Hemoglobin A1C, External 6.8 1 Est Avg Glucose, External 1 Blood VENOUS BLOOD / Unknown 08/05/2021 Historical Provider MD CHEMISTRY & BLOOD GAS ORDERABLES 1 * (ABNORMAL) VITAMIN B12 (08/01/2021 10:02 EST) Vitamin B12 172(L) 211 - 911 pg/mL 08/05/2021 14:46 EST [facility] Blood VENOUS BLOOD / Unknown Venipuncture / Unknown 08/01/2021 10:02 EST 08/01/2021 11:04 EST Narrative [facility] - 08/05/2021 14:46 EST The results of this assay can be falsely elevated due to the consumption of Biotin. 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
--- OUTSIDE RECORDS SUMMARY | 2024-01-14 11:11 | XMS_ITS | Encounter Summary ---
Author Organization [facility] Address [address] [place] [address] Care Team Providers Care Mother'S Helper Name Role Phone Bryant Crain MD Primary Care Provider Encounter Details Date Type Department Care Team (Late st Contact Info) Description 11/08/[address] [facility] Cardiology Clinic [address] [place] [address] Sabrina Herring MA Cryptogenic stroke (HCC-CMS) (Primary [...] Info) Description 03/08/2024 9:30 EDT Ancillary Procedure [facility] Cardiology - [address] [place] [address] 03/08/2024 10:15 EDT Ancillary Procedure [facility] Cardiology - [facility] [address] [place] [address] 04/05/2024 10:[address] [facility] Cardiology Clinic [address] [place] [phone] 04/05/2024 10:[address] [facility] Cardiology Clinic [address] [place], [place] [address] Carlos Ha NP 130 [facility] [address]OB-[address] [place] [address] documented as of this encounter [...] infarction documented in this encounter Care Teams Mother'S Helper Relationship Specialty Start Date End Date Bryant Crain MD [address] [place], [place] [phone] PCP - General 05/04/15 05/17/23 documented as of this encounter
--- OUTSIDE RECORDS SUMMARY | 2024-01-14 11:11 | XMS_ITS | Encounter Summary ---
Author Organization [facility] Address [address] [place] [address] Care Team Providers Care Business Office Director Name Role Phone Bryant Crain MD Primary Care Provider [phone] Encounter Details Date Type Department Care Team (Late st Contact Info) Description 06/11/2020 Orders Only [facility] Cardiology Clinic [address] [place], [place] [phone] Carlos Ha NP 130 [facility] [address]OB[address] [place] [address] Cryptogenic stroke (HCC-CMS) (Primary Dx) [...] 9:30 EDT Ancillary Procedure [facility] Cardiology - [facility] [address] [place] [address] 03/08/2024 10:15 EDT Ancillary Procedure [facility] Cardiology - [facility] [address] [place] [address] 04/05/2024 10:00 EDT Ancillary Procedure [facility] Cardiology Clinic [address] [place] [address] 04/05/2024 10:00 EDT Office Visit [facility] Cardiology Clinic [address] [place] [phone] Carlos Ha NP [address] [place] [address] [address] [place] [phone] documented as of this encounter Visit Diagnoses Diagnosis Cryptogenic stroke ([facility])- Primary Unspecified cerebral artery occlusion with cerebral infarction documented in this encounter Care Teams Business Office Director Relationship Specialty Start Date End Date Bryant Crain MD [address] [place], [place] [phone] PCP - General 05/04/15 05/17/23 documented as of this encounter
--- OUTSIDE RECORDS SUMMARY | 2024-01-14 11:11 | XMS_ITS | Encounter Summary ---
Author Organization [facility] Address [address] [place] [address] Care Team Providers Care Health Facilities Surveyor Name Role Phone Bryant Crain MD Primary Care Provider [phone] Encounter Details Date Type Department Care Team (Late st Contact Info) Description 07/10/2020 Orders Only [facility] Cardiology Clinic [address] [place], [place] [phone] Carlos Ha, RAHEEM 130 [facility] [address] [place] [address] Cryptogenic stroke (HCC-CMS) (Primary Dx) [...] [facility] Cardiology - [facility] [address] [place] [address] 03/08/2024 10:15 EDT Ancillary Procedure [facility] Cardiology - [facility] [address] [place] [address] 04/05/2024 10:00 EDT Ancillary Procedure [facility] Cardiology Clinic [address] [place] [phone] 04/05/2024 10:00 EDT Office Visit [facility] Cardiology Clinic [address] [place] [address] Carlos Ha NP [address] [place] [address] [address] [place] [address] documented as of this encounter Procedures Procedure Name Priority Date/Time Associated Diagnosis Comments CARDIAC IMPLANT CHECK - REMOTE MONITOR Routine 07/11/2020 12:43 EST Cryptogenic stroke ([facility]) documented in this encounter Results * [...] infarction documented in this encounter Care Teams Health Facilities Surveyor Relationship Specialty Start Date End Date Bryant Crain MD [address] [place] [address] PCP - General 05/04/15 05/17/23 documented as of this encounter
--- OUTSIDE RECORDS SUMMARY | 2024-01-14 11:11 | XMS_ITS | Encounter Summary ---
Author Organization [facility] Address [address] [place] [address] Care Team Providers Care Academic Specialist Name Role Phone Bryant Crain MD Primary Care Provider [phone] Reason for Visit * Reason Comments Diabetes Encounter Details Date Type Department Care Team (Late st Contact Info) Description 03/06/2021 10:00 EDT Office Visit [facility] Endocrinology [address] [place] [address] Sarika Zamudio, WIRE COMMUNICATIONS ENGINEER 130 [facility]- [address] [place] [phone] Type 2 diabetes mellitus with hyperglycemia, with long-term current use of insulin ([facility]) (Primary Dx); director long term care current use of insulin (HCC-CMS); Mixed hyperlipidemia; [...] to the clinic for a follow-up in [facility], with a history of DM for 14 [...] (within one year): UTD, sees clinic in [place] Last dental exam: overdue. Will schedule. CVD,PVD,CAD: HTN, HLD,CVA Statin: repatha injections. Aspirin: yes ACEI/ARB: candesartan 32 mg Prior visit with bookkeeping clerks supervisor: yes, JALEN Hyman. Foot care: podiatry Comorbidities: [...] % Final No results found for: MICROALBUR, [id number] Lab Results Component Value Date NA 137 11/23/2019 K 5.1 (H) 11/23/2019 CL 108 11/23/2019 CO2 20 (L) 11/23/2019 BUN 26 11/23/2019 GLU 199 (H) 11/23/2019 CA 11.2 (H) 11/23/2019 Joanna Hart is a 70 y.o. female who presented to the clinic for a follow-up in [facility], with a history of DM for 14 yrs. Problem List Items Addressed This Visit Endocrine/Metabolic senior living current use of insulin ([facility]) Diabetes mellitus, type 2 ([facility]) - Primary Controlled A1C 7 Continue current [...] EDT Associated Problem(s): Diabetes mellitus, type 2 ([facility]) Controlled A1C 7 Continue current regimen: [...] Info) Description 03/08/2024 9:30 EDT Ancillary Procedure [facility] Cardiology - [facility] [address] [place], [place] [phone] 03/08/2024 10:15 EDT Ancillary Procedure [facility] Cardiology [address] [place] [address] 04/05/2024 10:00 EDT Ancillary Procedure [facility] Cardiology Clinic [address] [place] [address] 04/05/2024 10:00 EDT Office Visit [facility] Cardiology Clinic [address] [place] [address] Carlos Ha NP [address] [place] [address]-[address] [place] [address] documented as of this encounter Procedures Procedure Name Priority Date/Time Associated Diagnosis Comments POCT GLUCOSE, MANUAL ENTRY Routine 03/06/2021 Type 2 diabetes mellitus with hyperglycemia, with long-term current use of insulin ([facility]) POCT HEMOGLOBIN A1C Routine 03/06/2021 Type 2 diabetes mellitus with hyperglycemia, with long-term current use of insulin ([facility]) documented in this encounter Results * (ABNORMAL) POCT HEMOGLOBIN A1C (03/06/2021) Hemoglobin A1c, POC 7.0(A) 5.7 % [facility] POINT OF CARE Blood CAPILLARY BLOOD / Unknown 03/06/2021 Sarika Zamudio WIRE COMMUNICATIONS ENGINEER POINT OF CARE FUNMILAYO T ORDERABLES [facility] POINT OF CARE * (ABNORMAL) POCT GLUCOSE, MANUAL ENTRY (03/06/2021) Glucose, POC 167(A) 70 - 100 mg/dL [facility] POINT OF CARE HN LAB POC COMMENT MANUAL (GLUCOSE) [facility] POINT OF director strategic planning ID [facility] Blood CAPILLARY BLOOD / Unknown 03/06/2021 Sarika Zamudio WIRE COMMUNICATIONS ENGINEER POINT OF CARE FUNMILAYO T ORDERABLES [facility] POINT OF CARE documented in this encounter Visit Diagnoses Diagnosis Type 2 diabetes mellitus with hyperglycemia, with long-term current use of insulin ([facility])- Primary director long term care current use of insulin ([facility]) Encounter for long-term (current) use of insulin Mixed hyperlipidemia Essential hypertension Unspecified essential hypertension documented in this encounter Discontinued Medications Medication Sig Discontinue Reason Start Date End Da te semaglutide (OZEMPIC) 1 mg/dose (2 mg/1.5 mL) pen injectorIndications:Typ e 2 diabetes mellitus with hyperglycemia, with long-term current use of insulin ([facility]) Inject 0.75 mL into the skin once [...] Sundays02/09/2021 added in this encounter Care Teams Academic Specialist Relationship Specialty Start Date End Date Bryant Crain MD [address] [place] [address] PCP - General 05/04/15 05/17/23 documented as of this encounter
--- OUTSIDE RECORDS SUMMARY | 2024-01-14 11:11 | XMS_ITS | Encounter Summary ---
Author Organization [facility] Address [address] [place] [address] Care Team Providers Care Manager Aviation Name Role Phone Bryant Crain MD Primary Care Provider [phone] Reason for Visit * Reason Onset Date Comments Follow-up 03/18/2021 Reveal explant Encounter Details Date Type Department Care Team (Late st Contact Info) Description 03/18/2021 Telephone [facility] Cardiology Clinic [address] [place] [address] Rea Ness, JALEN [address] [place] [address]-[address] [place] [address] Follow-up (Reveal explant) Social History Tobacco Use [...] - Hayley Robles - 04/11/2021 1124 EDT [facility] called. The girl I spoke with said she was going to go ahead and approve the panel monitor removal. She left her direct line as * Telephone Encounter - Rea Ness RN - 04/08/2021 1637 EDT PA obtained for Reveal [id number] Auth#-[id number] Ref #[id number] * Telephone Encounter - Rea [...] EDT Ancillary Procedure [facility] Cardiology - [place] [address] 03/08/2024 10:15 EDT Ancillary Procedure [facility] [place] [address] 04/05/2024 10:00 EDT Ancillary Procedure [facility] Cardiology Clinic [address] [place] [phone] 04/05/2024 10:00 EDT Office Visit [facility] Cardiology Clinic [address] [place], [place] [phone] Carlos Ha NP 130 [facility] [address]OB[address] [place] [phone] documented as of this encounter Visit Diagnoses Not on filedocumented in this encounter Care Teams Manager Aviation Relationship Specialty Start Date End Date Bryant Crain MD [address] [place] [address] PCP - General 05/04/15 05/17/23 documented as of this encounter
--- OUTSIDE RECORDS SUMMARY | 2024-01-14 11:11 | XMS_ITS | Encounter Summary ---
Author Organization [facility] Address [address] [place] [address] Care Team Providers Care Pipe Organ Builder Name Role Phone Bryant Crain MD Primary Care Provider [phone] Carlos Ha DIRECTOR FINANCIAL SERVICES Unavailable [phone] Reason for Visit * Reason Onset Date Comments Appointment Related 02/11/2022 Encounter Details Date Type Department Care Team (Late st Contact Info) Description 02/11/2022 Telephone [facility] Endocrinology [address] [place] [address] Sarika Zamudio, DIRECTOR FINANCIAL SERVICES 130 [facility]-A [address] [place] [address] Appointment Related Social History Tobacco [...] [facility] Cardiology - [address] [place] [address] 03/08/2024 10:15 EDT Ancillary Procedure [facility] Cardiology - [address] [place] [address] 04/05/2024 10:00 EDT Ancillary Procedure [facility] Cardiology Clinic [address] [place] [address] 04/05/2024 10:00 EDT Office Visit [facility] Cardiology Clinic [address] [place] [address] Carlos Ha NP [address] [place] [phone] documented as of this encounter Visit Diagnoses Not on filedocumented in this encounter Care Teams Pipe Organ Builder Relationship Specialty Start Date End Date Bryant Crain MD [address] [place] [address] PCP - General 05/04/15 05/17/23 Carlos Ha NP [address] [place] [phone] Consulting Clinician Cardiovascular Disease 09/14/21 documented as of this encounter
--- OUTSIDE RECORDS SUMMARY | 2024-01-14 11:12 | XMS_ITS | Encounter Summary ---
Author Organization [facility] Address [address] [place] [address] Care Team Providers Care Digital Marketing Project Manager Name Role Phone Bryant Crain MD Primary Care Provider [phone] Reason for Visit * Reason Comments Pacemaker/Device Check 3 mos Encounter Details Date Type Department Care Team (Latest Contact Info) Description 02/23/2020 12:00 EDT Office Visit [facility] Cardiology Clinic [address] [place], [place] [address] Carlos Macario NP 130 [facility]-A [address] [place] [address] Status post placement of implantable [...] History: Diagnosis Date ??? Cerebrovascular accident (CVA) ([facility]) 06/01/2019 ??? Diabetes mellitus, type 2 ([facility]) 01/26/2011 On metformin On metformin ??? Essential [...] LDL 156 (H) 06/05/2019 TRIG 256 06/05/2019 [facility] Cardiology ILR Visit Chemical Manager: SDI Device Type: Implantable loop recorder Service: Office [...] 02/23/2020 1315 EDTAssociated Problem(s): Paroxysmal atrial fibrillation ([facility]) No further episodes noted on program evaluation [...] Ancillary Procedure [facility] Cardiology - [address] [place] [address] 03/08/2024 10:15 EDT Ancillary Procedure [facility] Cardiology [address] [place] [address] 04/05/2024 10:00 EDT Ancillary Procedure [facility] Cardiology Clinic [address] [place] [phone] 04/05/2024 10:00 EDT Office Visit [facility] Cardiology Clinic [address] [place] [address] Carlos Macario, WALL CRANE OPERATOR [address] [place] [address]-[address] [place] [phone] documented as of this encounter Visit Diagnoses [...] 07/10/2020 added in this encounter Care Teams Digital Marketing Project Manager Relationship Specialty Start Date End Date Bryant Crain MD [address] [place], [place] [phone] PCP - General 05/04/15 05/17/23 documented as of this encounter
--- OUTSIDE RECORDS SUMMARY | 2024-01-14 11:12 | XMS_ITS | Encounter Summary ---
Author Organization [facility] Address [address] [place] [address] Care Team Providers Care Play Back Operator Name Role Phone Bryant Crain MD Primary Care Provider [phone] Encounter Details Date Type Department Care Team (Late st Contact Info) Description 10/16/2019 Orders Only [facility] Cardiology Clinic [address] [place] [address] Ana Epperson, RAHEEM Status post placement [...] 03/08/2024 9:30 EDT Ancillary Procedure [facility] Cardiology - [facility] [place] [address] 03/08/2024 10:15 EDT Ancillary Procedure [facility] Cardiology - [facility] [address] [place], [place] [id number] 04/05/2024 10:00 EDT Ancillary Procedure [facility] [address] [place] [address] 04/05/2024 10:00 EDT Office Visit [facility] [address] [place] [address] Carlos Ha, SUPERVISOR ROLLER PRINTING [address] [facility] [address] [place] [address] documented as of this encounter [...] scanned documents for full details. Ana A [place] SUPERVISOR ROLLER PRINTING CV IMPLANTABLE CARDI AC DEVICE documented in this encounter Visit Diagnoses Diagnosis Status post placement of implantable loop recorder- Primary Other specified cardiac device in situ documented in this encounter Care Teams Play Back Operator Relationship Specialty Start Date End Date Bryant Crain MD [address] [place], [place] [id number] PCP - General 05/04/15 05/17/23 documented as of this encounter
--- OUTSIDE RECORDS SUMMARY | 2024-01-14 11:12 | XMS_ITS | Encounter Summary ---
Author Organization [facility] Address [address] [place] [address] Care Team Providers Care Ob Gyn Name Role Phone Bryant Crain MD Primary Care Provider [phone] Encounter Details Date Type Department Care Team (Late st Contact Info) Description 03/15/2018 Historical Results Only [facility] - Main [place] [address] [place] [address] [phone] Janki Jeffries MD [address] [place] [address]-[address] [place] [address] Social History Tobacco Use Types [...] 9:30 EDT Ancillary Procedure [facility] - [address] [place], [place] [id number] 03/08/2024 10:15 EDT Ancillary Procedure [facility] - [place], [place] [id number] 04/05/2024 10:00 EDT Ancillary Procedure [facility] [address] [place] [address] 04/05/2024 10:[address] [facility] - [facility] Cardiology Clinic [address] [place], [place] [address] Carlos Ha NP 130 [facility] [address] [place] [address] documented as of this encounter [...] 15:27 [facility] LYMPH% - [facility] 30 20 - 40 % 03/15/2018 15:27 [facility] MEAN CORPUSCULAR HGB - [facility] 29.6 26 - 34 pg 03/15/2018 15:27 [facility] MEAN CORPUSCULAR HGB CONC - [facility] 33.0 31 - 36 g/dL 03/15/2018 15:27 [facility] MEAN CELL VOLUME - [facility] 89.6 77 - 100 fl 03/15/2018 15:27 [facility] MONO # - [facility] 0.88 0.3 - 0.9 10e3/uL 03/15/2018 15:27 [facility] MONO% - [facility] 7 0 - 12 % 03/15/2018 15:27 [facility] PLATELET COUNT 352 150 - 400 10e3/ul 03/15/2018 15:27 [facility] RED BLOOD COUNT - [facility] 4.53 3.8 - 5.2 10e6/ul 03/15/2018 15:27 [facility] RED CELL DISTRI WIDTH - [facility] 13.7 11.8 - 15.6 % 03/15/2018 15:27 [facility] WHITE BLOOD COUNT - [facility] 13.1(H) 3.5 - 10.5 10e3/ul 03/15/2018 15:27 [facility] 03/15/2018 10:0 0 EDT 03/15/2018 15:21 EDT Janki Jeffries MD HEMATOLOGY & PF4 ORD ERABLES [facility] documented in this encounter Visit Diagnoses Not on filedocumented in this encounter Care Teams Ob Gyn Relationship Specialty Start Date End Date Bryant Crain MD [address] [place] [address] PCP - General 05/04/15 05/17/23 documented as of this encounter
--- OUTSIDE RECORDS SUMMARY | 2024-01-14 11:12 | XMS_ITS | Encounter Summary ---
[place] [address] Care Team Providers Care Certification Technician Name Role Phone Bryant Crain MD Primary Care Provider Encounter Details Date Type Department Care Team (Latest Contact Info) Description 01/13/2024 Travel Social History Tobacco Use Types Packs/Day [...] 4:00 PM EDT Office Visit [facility] at [place] [address] [place] [phone] Ed Geller MD [address] [facility] [place] [address] documented as of this encounter Visit Diagnoses Not on filedocumented in this encounter Care Teams Certification Technician Relationship Specialty Start Date End Date Bryant Crain MD [address] [place] [address] PCP - General Internal Medicine 04/15/18 documented as of this encounter
--- OUTSIDE RECORDS SUMMARY | 2024-01-14 11:12 | XMS_ITS | Encounter Summary ---
Author Organization [facility] Address [address] [place] [address] Care Team Providers Care Punchboard Filling Machine Operator Name Role Phone Bryant Crain MD Primary Care Provider [phone] Reason for Visit * Reason Onset Date Comments Medication Problem 12/11/2019 Encounter Details Date Type Department Care Team (Late st Contact Info) Description 12/11/2019 Telephone [facility] Cardiology Clinic [address] [place] [address] Rea Ness, RN [address] [place] [address]-[address] [place] [address] Medication Problem Social History Tobacco [...] hold her aspirin. Discussed with Ana Epperson GELATIN MAKER UTILITY. Yes, patient should also hold aspirin. Spoke with patient and notified yes, OK to hold aspirin. documented in this encounter Plan of Treatment Upcoming Encounters Date Type Department Care Team (Late st Contact Info) Description 03/08/2024 9:30 EDT Ancillary Procedure [facility] Cardiology [address] [place] [address] 03/08/2024 10:15 EDT Ancillary Procedure [facility] Cardiology [address] [place] [address] 04/05/2024 10:00 EDT Ancillary Procedure [facility] Cardiology Clinic [address] [place] [address] 04/05/2024 10:00 EDT Office Visit [facility] Cardiology Clinic [address] [place] [address] [phone] Carlos Ha NP [address] [place] [address]-[address] [place] [phone] documented as of this encounter Visit Diagnoses Not on filedocumented in this encounter Care Teams Punchboard Filling Machine Operator Relationship Specialty Start Date End Date Bryant Crain MD [address] [place] [address] PCP - General 05/04/15 05/17/23 documented as of this encounter
--- OUTSIDE RECORDS SUMMARY | 2024-01-14 11:12 | XMS_ITS | Encounter Summary ---
Author Organization [facility] Address [address] [place] [address] Care Team Providers Care Customer Training Specialist Name Role Phone Bryant Crain MD Primary Care Provider [phone] Reason for Visit * (Routine) - Order Cancelled Specialty Diagnoses / Procedures Referred By Charo daniel Referred To Contact Diagnoses Status post placement of implantable loop recorder Procedures CARDIAC IMPLANT CHECK - IN CLINIC Ana Epperson, EARTH BURNER [address] [facility] [address] [address] Referral ID Status Reason Start Date Expiration Date V isits Requested Visits Authorized [id number] Order Cancelled 06/05/2019 1 1 Encounter Details Date Type Department Care Team (Latest Contact Info) Description 11/23/2019 9:45 EDT Ancillary Procedure [facility] Cardiology Clinic [address] [place] [address] Status post placement of implantable loop recorder [...] Procedure [facility] Cardiology - [facility] [address] [place] [address] 03/08/2024 10:15 EDT Ancillary Procedure [facility] Cardiology - [facility] [address] [place] [address] 04/05/2024 10:00 EDT Ancillary Procedure [facility] [address] [place] [address] 04/05/2024 10:00 EDT Office Visit [facility] [address] [place] [address] Carlos Ha NP 130 [facility]-A [address] [place] [phone] Pending Results Name Type Priority Associated Diagnoses Date /Time CARDIAC IMPLANT CHECK - IN CLINIC Implantable Cardiac Device Routine Status post placement of implantable loop recorder 11/27/2019 13:08 EDT documented as of this encounter Visit Diagnoses Diagnosis Status post placement of implantable loop recorder Other specified cardiac device in situ documented in this encounter Care Teams Customer Training Specialist Relationship Specialty Start Date End Date Bryant Crain MD [address] [place] [address] PCP - General 05/04/15 05/17/23 documented as of this encounter
--- OUTSIDE RECORDS SUMMARY | 2024-01-14 11:12 | XMS_ITS | Encounter Summary ---
Author Organization [facility] Address [address] [place] [address] Care Team Providers Care Plastics Technician Name Role Phone Bryant Crain MD Primary Care Provider [phone] Encounter Details Date Type Department Care Team (Late st Contact Info) Description 07/17/2019 Orders Only [facility] Cardiology Clinic [address] [place] [address] Ana Epperson, RAHEEM Status post placement [...] Ancillary Procedure [facility] Cardiology - [facility] [place] [address] 03/08/2024 10:15 EDT Ancillary Procedure [facility] Cardiology - [facility] [address] [place], [place] [phone] 04/05/2024 10:00 EDT Ancillary Procedure [facility] Cardiology Clinic [address] [place] [address] 04/05/2024 10:00 EDT Office Visit [facility] Cardiology Clinic [address] [place] [address] Carlos Ha, DISH MACHINE OPERATOR 130 [facility] [address] [place] [address] documented as of this [...] documents for full details. Ana A [place] DISH MACHINE OPERATOR CV IMPLANTABLE CARDI AC DEVICE documented in this encounter Visit Diagnoses Diagnosis Status post placement of implantable loop recorder- Primary Other specified cardiac device in situ documented in this encounter Care Teams Plastics Technician Relationship Specialty Start Date End Date Bryant Crain MD [address] [place], [place] [phone] PCP - General 05/04/15 05/17/23 documented as of this encounter
--- OUTSIDE RECORDS SUMMARY | 2024-01-14 11:12 | XMS_ITS | Encounter Summary ---
Author Organization [facility] Address [address] [place] [address] Care Team Providers Care Director Medical Economics Name Role Phone Bryant Crain MD Primary Care Provider [phone] Carlos Ha MOSAIC FLOOR LAYER Unavailable [phone] Elba Jett MD Primary Care Provider [phone] Encounter Details Date Type Department Care Team (Late st Contact Info) Description 11/14/2019 Lab Requisition [facility] Pathology & Laboratory Medicine - [facility] [address] [place] [address] Rivas Peterson, [address] HERRERA [address] [place] [address] Neoplasm of unspecified behavior of bone, soft [...] Ancillary Procedure [facility] Cardiology - [address] [place], [place] [phone] 03/08/2024 10:15 EDT Ancillary Procedure [facility] Cardiology [place] [address] 04/05/2024 10:00 EDT Ancillary Procedure [facility]iology Clinic [address] [place], [place] [phone] 04/05/2024 10:00 EDT Office Visit [facility]iology Clinic [address] [place] [address] Carlos Ha NP 130 [facility] [address]OB[address] [place] [address] documented as of this encounter [...] of the sections examined. All 11/15/2019 12:53 [facility] at 1253 Attestation By the signature below, the attending physician certifies that they have 1) personally conducted a gross and/or microscopic examination of the described specimen(s), and/or personally interpreted the results of laboratory testing of the described specimen(s), and 2) personally rendered or confirmed the above diagnosis. 11/15/2019 12:53 [facility] at 1253 Microscopic Description [...] and a lymphohistiocytic infiltrate. 11/15/2019 12:53 EDT [facility] Clinical History Nonhealing skin lesion left base of neck 11/15/2019 12:53 EDT [facility] Gross Description A. Received in formalin labelled with proper patient identification (initials S, D) and left base of neck is a 1.0 x 1.0 x 0.1 cm irregular shave of firm castillo-white skin. The margin is inked. The specimen is trisected and entirely submitted in A1. Mayra Glo 11/14/2019 16:21 11/15/2019 12:53 EDT [facility] Scanned Images 11/15/2019 12:53 T [facility] Tissue TISSUE SPECIMEN FROM SKIN / Unknown 11/10/2019 14:55 EDT 11/14/2019 15:44 EDT Rivas Peterson DO PATHOLOGY ORDER PAVEL [facility] [address] [place] [address] documented in this encounter Visit Diagnoses Diagnosis Neoplasm of unspecified behavior of bone, soft tissue, and skin documented in this encounter Care Teams Director Medical Economics Relationship Specialty Start Date End Date Bryant Crain MD [address] [place] [address] PCP - General 05/04/15 05/17/23 Elba Jett MD [address] [place] [phone] PCP - General Family Medicine - Primary Care 05/18/23 Carlos Ha NP [address] [place] [address] [address] [place] [address] Consulting Clinician Cardiovascular Disease 09/14/21 documented as of this encounter
--- OUTSIDE RECORDS SUMMARY | 2024-01-14 11:12 | XMS_ITS | Encounter Summary ---
Author Organization [facility] Address [address] [place] [address] Care Team Providers Care Weights And Measures Sealer Name Role Phone Bryant Crain MD Primary Care Provider [phone] Reason for Visit * Reason Onset Date Comments Other 12/05/2019 Encounter Details Date Type Department Care Team (Late st Contact Info) Description 12/05/2019 Telephone [facility] [address] [place] [address] Ana Epperson, SOCIAL SERVICES ANALYST Other Social History Tobacco Use Types Packs/Day [...] Telephone Encounter - Nestor Espinosa - 12/05/2019 7721 EDT Note from 11/23/19 [facility] addendum faxed to Dr. Peterson at [place] * Telephone Encounter - Ana Epperson APRN - 12/05/2019 1524 EDT Can you send my addended note to the surgeon in [place] now that I have added the result of her stress test so she can go forward with her surgery? Angela Perez documented in this encounter Plan of Treatment Upcoming Encounters Date Type Department Care Team (Late st Contact Info) Description 03/08/2024 9:30 EDT Ancillary Procedure [facility] Cardiology - [address] [place] [address] 03/08/2024 10:15 EDT Ancillary Procedure [facility] Cardiology [address] [place] [address] 04/05/2024 10:00 EDT Ancillary Procedure [facility] Cardiology Clinic [address] [place] [address] 04/05/2024 10:00 EDT Office Visit [facility] Cardiology [address] [address] Carlos Ha NP 130 [facility]-A [address] [place] [phone] documented as of this encounter Visit Diagnoses Not on filedocumented in this encounter Care Teams Weights And Measures Sealer Relationship Specialty Start Date End Date Byrant Crain MD [address] [place] [address] PCP - General 05/04/15 05/17/23 documented as of this encounter
--- OUTSIDE RECORDS SUMMARY | 2024-01-14 11:12 | XMS_ITS | Clinical Summary ---
Author Organization [facility] [place] [address] Care Team Providers Care Quarry Plant Crusher Operator Name Role Phone Bryant Crain MD Primary Care Provider [phone] Allergies Active Allergy Reactions Criticality Noted Date Comments Iodine And Iodide Containing Products 01/27/2011 Propoxyphene N-Acetaminophen 011 Oxycodone-Acetaminophen 01/27/2011 Medications Medication Sig Dispensed Refills Start Date End Date Status cetirizine (ZYRTEC) 10 mg tablet Take 10 mg by mouth daily. Active aspirin 81 mg EC tablet Take 81 mg by mouth daily. Active UNIFINE PENTIPS 32 gauge x /32 Needle Inject 1 each subcutaneously 2 times [...] Encounters Date Type Department Care Team Description 01/13/2024 Travel 11/28/2023 9:05 PM EDT Telehealth [place] [address] Telehealth, Neurology Bilateral leg numbness; [...] 4:00 PM EDT Office Visit Dermatology at [place] [address] [place] [phone] dE Geller MD [address] [facility] [place] [address] Health Maintenance Due Date Last Done Comments [facility] Creatinine 96 mg/dL [facility] Urine specimen (specimen) 01/12/2017 2:17 PM EDT 01/12/2017 2:23 PM EDT Narrative Resulting Agency Comment Spec In Lab Shikha Emily Sameeraa GLACIOLOGIST URINE ORDERABLES [facility] [place] [address] * (ABNORMAL) HDL/Cholesterol Profile (01/12/2017 2:17 PM [...] greater than or equal to 190 mg/dL. http://[email or web address].com/TVS-FYE-Envwfiuvb Measure LDL if Total Cholesterol minus HDL Cholesterol is greater than 220 mg/dL. Adults aged 40-75 with LDL 70-189 mg/dL should have their 10 year ASCVD risk estimated with the ACC/AHA ASCVD risk box estimator http://tools.acc.org/GCZFS-Qgni-Ovjrnknjs/ Statin should be discussed if risk greater [...] Comment Spec In Lab Shikha Emily Sameeraa GLACIOLOGIST CHEMISTRY ORDERABLE S Performing Organization Address City/[facility]/ZIP Co de Phone Number [facility] [place] [address] * (ABNORMAL) Hemoglobin A1c (01/12/2017 2:17 PM [...] [id number] Est Avg Gluc 166 mg/dL [facility] Comment: eAG equivalents for HbA1c percentages: HbA1c(%) ?eAG(mg/dL) 6.0 ?126 6.5 ?140 7.0 ?154 7.5 ?169 8.0 ?183 8.5 ?197 9.0 ?212 9.5 ?226 10.0 ? 240 Limitations: The eAG calculation has not been validated on women, individuals below 18 years old and above 70 years old, and individuals with hemoglobinopathies. Additional resources are available on the ADA website. Tyrone FNIK, Rodger J, Vidal R, et al. ??Translating the A1C assay into estimated average glucose values. ??Diabetes Care 2008:31(8):7063-6386. Blood specimen (specimen) 01/12/2017 2:17 PM EDT 01/12/2017 2:22 PM EDT Narrative Resulting Agency Comment Spec In Lab Shikha Poole APRN CHEMISTRY ORDERABLE S [facility] [place] [address] * (ABNORMAL) Basic Metabolic Panel (non-fasting) (01/12/2017 2:17 PM EDT) Glucose Lvl 212(H) 65 - 199 mg/dL [facility] Comment:Diabetes: >=200 mg/d L plus symptoms BUN 17 8 - 18 mg/dL [facility] Creatinine 0.88 0.70 - 1.20 mg/dL [facility] Comment: Please note that the pediatric reference intervals supplied above were not validated at [facility]. Results from pediatric patients should be interpreted [...] [facility] Estimated GFR >60 >=60 [facility] Comment: This estimated GFR [...] the following links into your internet browser. [email or web address]/DHnkdep [email or web address]/DHMCnkf Blood specimen (specimen) 01/12/2017 2:17 PM EDT 01/12/2017 2:22 PM EDT Narrative Resulting Agency Comment Spec In Lab Shikha Brasherflorina GLACIOLOGIST CHEMISTRY ORDERABLE S [facility] [place] [place] [address] from Last 3 Months or Most Recently Relevant to Health Maintenance Care Teams Quarry Plant Crusher Operator Relationship Specialty Start Date End Date Bryant Crain MD [address] [place] [address] PCP - General Internal Medicine 04/15/18
--- OUTSIDE RECORDS SUMMARY | 2024-01-14 11:12 | XMS_ITS | Encounter Summary ---
Author Organization [facility] Address [address] [place] [address] Care Team Providers Care Manager Of Software Development Name Role Phone Bryant Crain MD Primary Care Provider [phone] Encounter Details Date Type Department Care Team (Late st Contact Info) Description 01/15/2020 Orders Only [facility] Cardiology Clinic [address] [place] [address] Ana Epperson, RAHEEM Status post placement of [...] [facility] - [address] [place], [place] [phone] 03/08/2024 10:15 EDT Ancillary Procedure [facility] Cardiology - [place] [address] [place] [address] 04/05/2024 10:00 EDT Ancillary Procedure [facility] Cardiology Clinic [address] [place], [place] [address] 04/05/2024 10:00 EDT Office Visit [facility]iology Clinic [address] [place], [place] [address] Carlos Ha NP 130 [facility] [address]OB-A [address] [place] [address] documented as of this encounter [...] situ documented in this encounter Care Teams Manager Of Software Development Relationship Specialty Start Date End Date Bryant Crain MD [address] [place], [place] [phone] PCP - General 05/04/15 05/17/23 documented as of this encounter
--- OUTSIDE RECORDS SUMMARY | 2024-01-14 11:12 | XMS_ITS | Encounter Summary ---
Author Organization [facility] Address [address] [place] [address] Care Team Providers Care Gas Charger Name Role Phone Bryant Crain MD Primary Care Provider Encounter Details Date Type Department Care Team (Late st Contact Info) Description 04/12/2020 [facility] [address] [place] [address] Ana Epperson, RAHEEM Status post placement of [...] Ancillary Procedure [facility] Cardiology - [place] [address] [place] [address] 03/08/2024 10:15 EDT Ancillary Procedure [facility] Cardiology - [facility] [address] [place] [address] 04/05/2024 10:00 EDT Ancillary Procedure [facility] Cardiology Clinic [address] [place] [address] 04/05/2024 10:00 EDT Office Visit [facility] [address] [place] [address] Carlos Ha NP 130 [facility] [address]OB-A [address] [place] [address] documented as of this encounter [...] scanned documents for full details. Ana A [place] METAL BASE BLOCKER CV IMPLANTABLE CARDI AC DEVICE documented in this encounter Visit Diagnoses Diagnosis Status post placement of implantable loop recorder- Primary Other specified cardiac device in situ documented in this encounter Care Teams Gas Charger Relationship Specialty Start Date End Date Bryant Crain MD [address] [place] [address] PCP - General 05/04/15 05/17/23 documented as of this encounter
--- OUTSIDE RECORDS SUMMARY | 2024-01-14 11:12 | XMS_ITS | Encounter Summary ---
Author Organization [facility] Address [address] [place] [address] Care Team Providers Care Reducer Name Role Phone Bryant Crain MD Primary Care Provider [phone] Reason for Visit * Reason Onset Date Comments Follow-up 09/15/2019 Encounter Details Date Type Department Care Team (Late st Contact Info) Description 09/15/2019 Telephone [facility] [address] [place] [address] Carlos Ha, RAHEEM 130 [facility] [place] [address] Follow-up Social History Tobacco Use [...] EDT Called pt. Who is stuck in [place] with the pandemic; says they should be [...] She ultimately went to hospital at the [facility] in [facility] and had w/u which was [...] EDT Pt called back, she is in [place] and can be reached on her cell [...] Procedure [facility] Cardiology - [address] [place], [place] [id number] 03/08/2024 10:15 EDT Ancillary Procedure [facility] Cardiology - [address] [place] [address] 04/05/2024 10:00 EDT Ancillary Procedure [facility] [address] [place] [phone] 04/05/2024 10:00 EDT Office Visit [facility] [address] [place] [phone] Carlos Ha, BIOFUELS PROCESSING TECHNICIAN 130 [facility] [address] [place] [address] documented as of this encounter Visit Diagnoses Not on filedocumented in this encounter Care Teams Reducer Relationship Specialty Start Date End Date Bryant Crain MD [address] [place], [place] [phone] PCP - General 05/04/15 05/17/23 documented as of this encounter
--- OUTSIDE RECORDS SUMMARY | 2024-01-14 11:12 | XMS_ITS | Encounter Summary ---
Author Organization [facility] Address [address] [place] [address] Care Team Providers Care Curriculum Counselor Name Role Phone Bryant Crain MD Primary Care Provider [phone] Encounter Details Date Type Department Care Team (Late st Contact Info) Description 10/02/2019 Orders Only [facility] Cardiology Clinic [address] [place], [place] [phone] Ana Epperson, RAHEEM Status post placement of [...] Ancillary Procedure [facility] Cardiology - [facility] [place] [address] 03/08/2024 10:15 EDT Ancillary Procedure [facility] Cardiology - [facility] [address] [place], [place] [id number] 04/05/2024 10:00 EDT Ancillary Procedure [facility] Card[facility] Clinic [address] [place] [address] 04/05/2024 10:00 EDT Office Visit [facility] Cardiology Clinic [address] [place] [address] Carlos Ha, OUTSIDE SOLAR SALES CONSULTANT 130 [facility] [address] [place] [address] documented as [...] scanned documents for full details. Ana A Millwood OUTSIDE SOLAR SALES CONSULTANT CV IMPLANTABLE CARDI AC DEVICE documented in this encounter Visit Diagnoses Diagnosis Status post placement of implantable loop recorder- Primary Other specified cardiac device in situ documented in this encounter Care Teams Curriculum Counselor Relationship Specialty Start Date End Date Bryant Crain MD [address] [place], [place] [phone] PCP - General 05/04/15 05/17/23 documented as of this encounter
--- OUTSIDE RECORDS SUMMARY | 2024-01-14 11:12 | XMS_ITS | Encounter Summary ---
Author Organization [facility] Address [address] [place] [address] Care Team Providers Care Dental Floss Packer Name Role Phone Bryant Crain MD Primary Care Provider [phone] Reason for Visit * Reason Onset Date Comments Other 11/28/2019 Encounter Details Date Type Department Care Team (Late st Contact Info) Description 11/28/2019 Telephone [facility] Clinic [address] [place] [address] Ana Epperson, TEXTURING MACHINE FIXER Other Social History Tobacco Use Types Packs/Day [...] about everything. Pt can be reached at [phone] documented in this encounter Plan of Treatment Upcoming Encounters Date Type Department Care Team (Late st Contact Info) Description 03/08/2024 9:30 EDT Ancillary Procedure [facility] Cardiology - [address] [place] [address] 03/08/2024 10:15 EDT Ancillary Procedure [facility] Cardiology - [address] [place] [address] 04/05/2024 10:00 EDT Ancillary Procedure [facility] Cardiology Clinic [address] [place] [phone] 04/05/2024 10:00 EDT Office Visit [facility] Cardiology Clinic [address] [place] [phone] Carlos Ha NP [address] [place] [address]-[address] [place] [phone] documented as of this encounter Visit Diagnoses Not on filedocumented in this encounter Care Teams Dental Floss Packer Relationship Specialty Start Date End Date Bryant Crain MD [address] [place] [address] PCP - General 05/04/15 05/17/23 documented as of this encounter
--- OUTSIDE RECORDS SUMMARY | 2024-01-14 11:12 | XMS_ITS | Encounter Summary ---
Author Organization [facility] Address [address] [place] [address] Care Team Providers Care Order Entry Technician Name Role Phone Bryant Crain MD Primary Care Provider [phone] Encounter Details Date Type Department Care Team (Late st Contact Info) Description 11/14/2019 Orders Only [facility] Cardiology Clinic [address] [place] [address] Ana Epperson, RAHEEM Status post placement [...] Ancillary Procedure [facility] Cardiology - [facility] [place] [address] [place] [address] 03/08/2024 10:[address] [facility] Cardiology - [facility] [address] [place], [place] [phone] 04/05/2024 10:00 EDT Ancillary Procedure [facility]iology Clinic [address] [place] [address] 04/05/2024 10:00 EDT Office Visit [facility]iology Clinic [address] [place] [address] Carlos Ha, SEXUAL ABUSE COUNSELLOR 130 [facility] [address] [place] [address] documented as of this encounter [...] scanned documents for full details. Ana Epperson SEXUAL ABUSE COUNSELLOR CV IMPLANTABLE CARDI AC DEVICE documented in this encounter Visit Diagnoses Diagnosis Status post placement of implantable loop recorder- Primary Other specified cardiac device in situ documented in this encounter Care Teams Order Entry Technician Relationship Specialty Start Date End Date Bryant Crain MD [address] [place], [place] [phone] PCP - General 05/04/15 05/17/23 documented as of this encounter
--- OUTSIDE RECORDS SUMMARY | 2024-01-14 11:12 | XMS_ITS | Encounter Summary ---
Author Organization [facility] Address [address] [place] [address] Care Team Providers Care Communications Strategist Name Role Phone Unavailable Primary Care Provider Unavailabl e Encounter Details Date Type Department Care Team (Late st Contact Info) Description 11/19/2004 Results Only [facility] [address] [place] [address] Raji Cook MD [address] [place] [phone] Social History Tobacco Use Types Packs/Day Years [...] Procedure [facility] Cardiology [place] [address] 03/08/2024 10:15 EDT Ancillary Procedure [facility] Cardiology - [facility] [place] [address] 04/05/2024 10:00 EDT Ancillary Procedure [facility] Cardiology Clinic [address] [place] [address] 04/05/2024 10:00 EDT Office Visit [facility] Cardiology Clinic [address] [place] [address] Carlos Ha NP [address] [facility] [address] [place] [address] documented as of this encounter [...] ? TANNER, JOANNA ? Accession #: ? [id number] ? : ? 1950 (Age: 54) ??F [...] Cook MD PATHOLOGY ORDERABLES SILVESTRE YANG [address] [place] [address] documented in this encounter Visit Diagnoses Not on filedocumented in this encounter
--- OUTSIDE RECORDS SUMMARY | 2024-01-14 11:12 | XMS_ITS | Encounter Summary ---
Author Organization [facility] Address [address] [place] [address] Care Team Providers Care Registered Representative Name Role Phone Bryant Crain MD Primary Care Provider [phone] Encounter Details Date Type Department Care Team (Late st Contact Info) Description 11/09/2017 Historical Results Only [facility] - [place] [address] [place] [phone] Hayde Paul MD [address] [place] [address]-[address] [place] [phone] Social History Tobacco Use Types Packs/Day Years Used Date Smoking Tobacco: Never Assessed Sex and Gender Information Value Date Recorded Sex Assigned at Not on file Gender Identity Female 06/01/2019 10:00 EST Sexual Orientation Not on file documented as of this encounter Plan of Treatment Upcoming Encounters Date Type Department Care Team (Late st Contact Info) Description 03/08/2024 9:30 EDT Ancillary Procedure [facility] Cardiology - [place] [address] 03/08/2024 10:15 EDT Ancillary Procedure [facility] Cardiology - [place] [address] 04/05/2024 10:00 EDT Ancillary Procedure [facility] Cardiology Clinic [address] [place] [address] 04/05/2024 10:00 EDT Office Visit [facility] [address] [place] [address] Carlos Ha NP 130 [facility] [address] [place] [phone] documented as of this encounter Procedures Procedure Name Priority Date/Time Associated Diagnosis Comments POCT GLUCOSE, INTERFACED Routine 11/09/2017 13:07 EDT documented in this encounter Results * POCT GLUCOSE (11/09/2017 13:07 EDT) Glucose, POC 81 70 - 100 mg/dL 11/10/2017 6:14 EDT [facility] 11/09/2017 13:0 7 EDT 11/10/2017 6:14 EDT Hayde Paul MD POINT OF CARE T EST ORDERABLES [facility] documented in this encounter Visit Diagnoses Not on filedocumented in this encounter Care Teams Registered Representative Relationship Specialty Start Date End Date Bryant Crain MD [address] [place], [place] [phone] PCP - General 05/04/15 05/17/23 documented as of this encounter
--- OUTSIDE RECORDS SUMMARY | 2024-01-14 11:12 | XMS_ITS | Encounter Summary ---
Author Organization [facility] Address [address] [place] [address] Care Team Providers Care Medical Engineer Name Role Phone Bryant Crain MD Primary Care Provider [phone] Reason for Visit * Reason Onset Date Comments Pacemaker/Device Check 10/05/2019 Encounter Details Date Type Department Care Team (Late st Contact Info) Description 10/05/2019 Telephone [facility] [address] [place] [address] Ana Epperson NP Pacemaker/Device Check Social History [...] Encounter - Fan Schaefer RN - 10/05/2019 [id number] EDT Study Result Remote transmission of ILR [...] EDT Ancillary Procedure [facility] Cardiology - [address] [place] [address] 03/08/2024 10:15 EDT Ancillary Procedure [facility] Cardiology - [address] [place] [address] 04/05/2024 10:00 EDT Ancillary Procedure [facility] Cardiology Clinic [address] [place] [address] 04/05/2024 10:00 EDT Office Visit [facility] Cardiology Clinic [address] [place] [address] Carlos Ha NP 130 [facility] [place] [phone] documented as of this encounter Visit Diagnoses Not on filedocumented in this encounter Care Teams Medical Engineer Relationship Specialty Start Date End Date Bryant Crain MD [address] [place] [address] PCP - General 05/04/15 05/17/23 documented as of this encounter
--- OUTSIDE RECORDS SUMMARY | 2024-01-14 11:12 | XMS_ITS | Encounter Summary ---
Author Organization [facility] [place] [address] Care Team Providers Care Pressure Welder Name Role Phone Bryant Crain MD Primary Care Provider Encounter Details Date Type Department Care Team (Late st Contact Info) Description 11/10/2022 Ancillary Procedure [place] [address] Milagros Joseph MD [facility] [place] [address] Social History Tobacco Use Types Packs/Day Years [...] 4:00 PM EDT Office Visit [facility] [place] [address] [facility] [place] [phone] Ed Geller MD [address] [facility] [place] [address] documented as of this encounter Procedures Procedure Name Priority Date/Time Associated Diagnosis Comments FILM LIBRARY STORAGE ONLY DX CHEST Routine 11/10/2022 12:00 AM EDT documented in this encounter Results * Film Library- Storage Only DX Chest (11/10/2022 12:00 AM EDT) Narrative AJ HARRIS - 11/11/2022 7:35 AM EDT This exam is auto-finalizing. It's purpose is for storage only. Milagros Joseph MD IMG FILM LIBRARY ORD ERABLES Performing Organization Address City/State/[facility] Co de Phone Number [place], [place] documented in this encounter Visit Diagnoses Not on filedocumented in this encounter Care Teams Pressure Welder Relationship Specialty Start Date End Date Bryant Crain MD [address] [place] [address] PCP - General Internal Medicine 04/15/18 documented as of this encounter
--- OUTSIDE RECORDS SUMMARY | 2024-01-14 11:12 | XMS_ITS | Encounter Summary ---
Author Organization [facility] Address [address] [place] [address] Care Team Providers Care Bank Vault Clerk Name Role Phone Bryant Crain MD Primary Care Provider [phone] Carlos Ha STATION TENDER Unavailable [phone] Elba Jett MD Primary Care Provider [phone] Encounter Details Date Type Department Care Team (Late st Contact Info) Description 12/11/2019 Lab Requisition [facility] Pathology & Laboratory Medicine - [address] [address] Outr Resulting Lab, Provider Social [...] [facility] - [facility] [address] [place] [phone] 03/08/2024 10:15 EDT Ancillary Procedure [facility] Cardiology - [facility] [address] [place] [phone] 04/05/2024 10:00 EDT Ancillary Procedure [facility] Cardiology Clinic [address] [place], [place] [phone] 04/05/2024 10:00 EDT Office Visit [facility] Cardiology Clinic [address] [place] [address] Carlos Ha NP 130 [facility] [place] [address] documented as of this encounter Procedures Procedure Name Priority Date/Time Associated Diagnosis Comments PTH INTACT Routine 12/11/2019 14:47 EDT documented in this encounter Results * PTH INTACT (12/11/2019 14:47 EDT) Intact PTH 64 19 - 88 pg/mL 12/12/2019 11:39 EDT [facility] Blood VENOUS BLOOD / Unknown 12/11/2019 14:47 EDT 12/12/2019 10:45 EDT Provider Outr Resulting Lab CHEMISTRY & BLOOD GAS ORDERABLES [facility] [address] [place] [address] documented in this encounter Visit Diagnoses Not on filedocumented in this encounter Care Teams Bank Vault Clerk Relationship Specialty Start Date End Date Bryant Crain MD [address] [place], [place] [phone] PCP - General 05/04/15 05/17/23 Elba Jett MD [address] [place] [phone] PCP - General Family Medicine - Primary Care 05/18/23 Carlos Ha NP [address] [place] [phone] Consulting Clinician Cardiovascular Disease 09/14/21 documented as of this encounter
--- OUTSIDE RECORDS SUMMARY | 2024-01-14 11:12 | XMS_ITS | Encounter Summary ---
Author Organization [facility] Address [address] [place] [address] Care Team Providers Care Pelt Shearer Name Role Phone Bryant Crain MD Primary Care Provider [phone] Encounter Details Date Type Department Care Team (Late st Contact Info) Description 11/10/2019 Orders Only [facility] Cardiology Clinic [address] [place] [address] Ana Epperson, RAHEEM Status post placement [...] Ancillary Procedure [facility] Cardiology - [facility] [place] [address] 03/08/2024 10:15 EDT Ancillary Procedure [facility] Cardiology - [facility] [address] [place], [place] [phone] 04/05/2024 10:00 EDT Ancillary Procedure [facility] Cardiology Clinic [address] [place] [address] 04/05/2024 10:00 EDT Office Visit [facility] Cardiology Clinic [address] [place] [address] Carlos Ha NP 130 [facility] [address]A [address] [place] [address] documented as of this encounter [...] situ documented in this encounter Care Teams Pelt Shearer Relationship Specialty Start Date End Date Bryant Crain MD [address] [place], [place] [phone] PCP - General 05/04/15 05/17/23 documented as of this encounter
--- OUTSIDE RECORDS SUMMARY | 2024-01-14 11:12 | XMS_ITS | Encounter Summary ---
Author Organization [facility] Address [address] [place] [address] Care Team Providers Care Mail Processing Machine Operator Name Role Phone Bryant Crain MD Primary Care Provider [phone] Reason for Referral * Cardiology (3 - 10 Business Days) - Specialty Report Received Specialty Diagnoses / Procedures Referred By Charo daniel Referred To Contact Nuclear Medicine Diagnoses Chest pain, unspecified type Procedures NM CARD SPECT NUCLEAR STRESS [facility] [address] [place], [place] [address] Referral ID Status Reason Start Date Expiration Date V isits Requested Visits Authorized [id number] Specialty Report Received 11/28/2019 01/11/2020 1 1 * Cardiology (Urgent) - Closed Specialty Diagnoses / Procedures Referred By Charo daniel Referred To Contact Nuclear Medicine Diagnoses [place] (ventricular tachycardia) ([facility]) Procedures NM CARD SPECT NUCLEAR STRESS [facility] [address] [place] [address] Referral ID Status Reason Start Date Expiration Date Visits Re quested Visits Authorized [id number] Closed 11/27/2019 01/11/2020 1 1 Reason for Visit * Reason Comments Follow-up Cardiac Clearance Encounter Details Date Type Department Care Team (Late st Contact Info) Description 11/23/2019 9:[address] [facility] [address] [place] [address] Ana Epperson, BATTER MIXER Paroxysmal atrial fibrillation (HCC-CMS) (Primary Dx); Status post placement of implantable loop recorder; Current use of longterm 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; Mixed hyperlipidemia; [place] (ventricular tachycardia) (HCC-CMS); [...] this encounter Progress Notes * Ana Epperson, RELOCATION COORDINATOR - 11/23/2019 0945 EDT CC: Follow-up (Cardiac Clearance ) HPI: Joanna Hart is a 69 y.o. year-old female I am seeing for a preop visit for surgical excision of anasal squamous cell cancer to be done by Dr Peterson either at [facility] or [facility]. Date is not scheduled yet. She is also here For f/u of her loop recorder/REVEAL device for Hx. cryptogenic stroke; Dr. Paul implanted 11/09/17; hx. CVA Fall of 2016; says she never had any symptoms. Hx: December 24, 2018 she awoke with PND, went to hospital in [place] for 3 days; says she was very [...] exercising daily in the pool while in [place] but hasn't for one month given pandemic. Hx: Called pt. 09/15/19 regarding her REVEAL transmission and arrythmia. She was in [place]. Explained she had an 8 sec. VT [...] for some time. [facility] and had w/u which was [...] accident (CVA) (HCC-CMS) ??? Current use of longterm 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 ??? 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 Dyslipidemia ??? Essential hypertension ??? Nonrheumatic aortic valve stenosis ??? Paroxysmal atrial fibrillation (HCC-CMS) ??? Status post placement of implantable loop recorder ??? Diabetes mellitus, type 2 (HCC-CMS) ??? Rosacea ??? Dyspnea ??? Hypomagnesemia ??? Mixed hyperlipidemia ??? [place] (ventricular tachycardia) ([facility]) SH/FH: reviewed and updated MEDICATIONS: Current Outpatient [...] SKIN: warm, dry, without lesions,rashes Device: Brand: [employer] REVEAL Implanted: 11/09/[address] Paul for cryptogenic stroke Mode: monitoring, presenting rhythm appears regular Generator: good Optivol: N/A Monitored Events: None Reprogramming: none Impression: Normal function with no arrhythmias since the 09/12 episode of VT DATA: imaging: EK01/23/19 at [facility]: SR with first degree AV block, left [...] based on ACC/AHA) 4. Current use of longterm 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 Patient is taking and tolerating apixaban [...] Procedure [facility] Cardiology - [address] [place] [address] 03/08/2024 10:15 EDT Ancillary Procedure [facility] Cardiology [address] [place] [address] 04/05/2024 10:[address] [facility] [address] [place] [id number] 04/05/2024 10:[address] [facility] [address] [place] [address] [phone] Carlos Ha NP [address] [place] [address]-A [address] [place] [address] Scheduled Orders Name Type Priority Associated Diagnoses Orde r Schedule NM CARD SPECT NUCLEAR STRESS Cardiac Nuclear Medicine Routine [place] (ventricular tachycardia) ([facility]) Ordered: 11/23/2019 NM CARD SPECT NUCLEAR STRESS [...] encounter Results * TSH (11/23/2019 11:09 EDT) [facility] THYROID STIM [facility] 2.80 0.46 - 4.68 uIU/ml 11/23/2019 12:29 EDT [facility] Comment: The results of this assay can be falsely lowered due to the consumption of Biotin. 11/23/2019 11:0 9 EDT 11/23/2019 11:09 EDT Narrative [facility] - 11/23/2019 12:29 EDT Does PT Have a Latex Allergy? UNKNOWN Ana Epperson BATTER MIXER CHEMISTRY & BLOOD GA S ORDERABLES [facility] * MAGNESIUM (11/23/2019 11:09 EDT) [facility] Magnesium 2.00 1.7 - 2.8 mg/dL 11/23/2019 11:58 EDT [facility] 11/23/2019 11:0 9 EDT 11/23/2019 11:09 EDT Narrative [facility] - 11/23/2019 11:58 EDT Does PT Have a Latex Allergy? UNKNOWN Ana Epperson BATTER MIXER CHEMISTRY & BLOOD GA S ORDERABLES [facility] * (ABNORMAL) BASIC METABOLIC PANEL (BMP) (11/23/2019 11:09 EDT) [facility] BUN [facility] 26 10 - 26 mg/dL 11/23/2019 11:58 EDT [facility] CALCIUM - [facility] 11.2(H) 8.5 - 10.5 mg/dL 11/23/2019 11:58 [facility] Chloride 108 96 - 110 mmol/L 11/23/2019 11:58 [facility] CO2 Total 20(L) 22 - 32 mEq/L 11/23/2019 11:58 [facility] CREATININE 0.92 0.52 - 1.04 mg/dL 11/23/2019 11:58 [facility] eGFR >60 11/23/2019 11:58 [facility] Comment: Chronic renal impairment is defined as GFR <60 Multiply result by 1.210 for patients. eGFR calculated using the IDMS-traceable MDRD Study Equation. ??(effective 04/23/2014) Anion Gap 9 0 - 18 11/23/2019 11:58 [facility] GLUCOSE - [facility] 199(H) 70 - 100 mg/dL 11/23/2019 11:58 [facility] Potassium 5.1(H) 3.5 - 5.0 mEq/L 11/23/2019 11:58 [facility] Sodium 137 136 - 145 mEq/L 11/23/2019 11:58 [facility] 11/23/2019 11:0 9 EDT 11/23/2019 11:09 EDT Narrative [facility] - 11/23/2019 11:58 EDT Does PT Have a Latex Allergy? UNKNOWN Ana Epperson NP CHEMISTRY & BLOOD GA S ORDERABLES [facility] documented in this encounter Visit Diagnoses Diagnosis Paroxysmal atrial fibrillation (HCC-CMS)- Primary Atrial fibrillation Status post placement of implantable loop recorder Other specified cardiac device in situ Current use of longterm 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 Long-term (current) use of anticoagulants Mixed hyperlipidemia [place] (ventricular tachycardia) ([facility]) Paroxysmal ventricular tachycardia Chest pain, unspecified type [...] 07/10/2020 added in this encounter Care Teams Mail Processing Machine Operator Relationship Specialty Start Date End Date Bryant Crain MD [address] [place] [address] PCP - General 05/04/15 05/17/23 documented as of this encounter
--- OUTSIDE RECORDS SUMMARY | 2024-01-14 11:12 | XMS_ITS | Encounter Summary ---
Author Organization [facility] Address [address] [place] [address] Care Team Providers Care Retail Link Analyst Name Role Phone Bryant Crain MD Primary Care Provider [phone] Reason for Referral * (Routine) - Closed Specialty Diagnoses / Procedures Referred By Charo daniel Referred To Contact Diagnoses Status post placement of implantable loop recorder Procedures CARDIAC IMPLANT CHECK - IN CLINIC Ana Epperson, RAHEEM [address] [facility] [address] [address] Referral ID Status Reason Start Date Expiration Date Visits Re quested Visits Authorized [id number] Closed 06/05/2019 1 1 Reason for Visit * Reason Comments Pacemaker/Device Check Medtronic Reveal Check Encounter Details Date Type Department Care Team (Latest Contact Info) Description 06/05/2019 8:45 EST Office Visit [facility] Clinic [address] [place] [address] Ana Epperson NP Status post placement of implantable loop recorder (Primary Dx); Paroxysmal atrial fibrillation (HCC-CMS); 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 year-old female I am seeing in follow up for her loop recorder/REVEAL device for cryptogenic stroke; Dr. Paul implanted 11/09/17. She had her CVA Fall of 2016; says she never had any symptoms. On December 24, 2018 she awoke with PND, [place]; saysshe was very sick; confused, high white count; also had GI distress and UTI. Was told she was in [place]. She ultimately had IV antibiotics and recovered. Has not felt dyspneic or had PND since. ROS: Denies: SOB, RODRIGUEZ, orthopnea, PND, palps., CP, wt. Gain, LE edema. Pt. Will be in [place] from To September 17. The rest if the pertinent 10 point review of systems is negative other than mentioned in HPI PMH: Patient Active Problem List Diagnosis ??? Cerebrovascular accident (CVA) (HCC-CMS) ??? Current use of termite control representative 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 ??? jail current use of insulin (HCC-CMS) ??? Dyslipidemia [...] SKIN: warm, dry, without lesions,rashes Device: Brand: [employer] REVEAL Implanted: 11/09/[address] Paul for cryptogenic stroke Mode: monitoring Generator: good Optivol: N/A Monitored Events: None Reprogramming: none Impression: Normal function with no arrhythmias The ASCVD Risk score (Chelsea DC Jr., et al., 2013) failed to calculate for the following reasons: The patient has a prior NV or stroke diagnosis DATA: imaging: EKG: @LASTEKG@ [...] TRIGLYCERIDES, HDL, LDL) Coagulation/Thromboembolic Current use of termite control representative 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 Patient is taking and tolerating apixaban [...] 06/05/2019 0935 ESTAssociated Problem(s): Current use of termite control representative 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 Patient is taking and tolerating apixaban without overt signs of bleeding. Will check labs including renal function today. * Assessment & Plan Note - Ana Epperson APRN - 06/05/2019 0806 ESTAssociated Problem(s): termite control representative current use of insulin ([facility]) Pt. is taking and tolerating [...] Procedure [facility] Cardiology - [facility] [place] [address] 03/08/2024 10:15 EDT Ancillary Procedure [facility] Cardiology [facility] [place] [address] 04/05/2024 10:00 EDT Ancillary Procedure [facility] [address] [place] [id number] 04/05/2024 10:00 EDT Office Visit [facility] [address] [place] [address] [phone] Carlos Ha NP [address] [place] [address]-[address] [place] [phone] documented as of this encounter Procedures Procedure [...] the findings below. Procedure Note Ana Epperson, ASSIGNMENT DESK ASSISTANT - 06/05/2019 I have reviewed the pacemaker interrogation. I agree with the findingsbelow. Ana Epperson NP CV IMPLANTABLE CARDI AC DEVICE * MAGNESIUM (06/05/2019 9:48 EST) Magnesium 1.90 1.7 - 2.8 mg/dL 06/05/2019 11:06 EST [facility] 06/05/2019 9:48 EST 06/05/2019 9:48 EST Narrative [facility] - 06/05/2019 11:06 EST Does PT Have a Latex Allergy? UNKNOWN Ana Epperson NP CHEMISTRY & BLOOD GA S ORDERABLES [facility] * (ABNORMAL) LIPID PROFILE (INCLUDES CHOLESTEROL, TRIGLYCERIDES, HDL, LDL) (06/05/2019 9:48 EST) Triglyceride 256 <150 mg/dL 06/05/2019 11:06 EST [facility] Comment: Adult: Normal: ?<150 mg/dl ? Borderline High: 150-199 mg/dl ? High: ?200-499 mg/dl ? Very High: >uo=114 Cholesterol 255(H) <200 mg/dL 06/05/2019 11:06 [facility] Comment: Acceptable: ??<200 Borderline: ??200-239 High: ?> or = 240 Chol/HDL Ratio 5.3(H) 0 - 4.5 06/05/2019 11:06 [facility] Comment: DESIRABLE RATIO IS LESS THAN 4.1 PATIENTS ARE CONSIDERED AT RISK: WOMEN RATIO >5 MEN RATIO >6 FASTING? - [facility] Yes 9 9:48 [facility] HDL 48 40 - 60 mg/dL 06/05/2019 11:06 [facility] Comment: ?? Reference Range Low: ? < 40 ??mg/dL Normal: ??40-60 mg/dL High: ?>= 60 mg/dL LDL CHOLESTEROL - [facility] 156(H) 60 - 100 mg/dL 06/05/2019 11:06 [facility] Non HDL Cholesterol 207 mg/dl 06/05/2019 11:06 [facility] Comment: Desirable: ?Less than 130 Borderline High: ??130-159 High: ? 160-189 Very High: ?Greater than or equal to 190 06/05/2019 9:48 EST 06/05/2019 9:48 EST Narrative [facility] - 06/05/2019 11:06 EST Does PT Have a Latex Allergy? UNKNOWN Ana Epperson NP CHEMISTRY & BLOOD GA S ORDERABLES [facility] * (ABNORMAL) COMPREHENSIVE METABOLIC PANEL (CMP) (06/05/2019 9:48 EST) Albumin % 4.4 3.4 - 4.9 g/dL 06/05/2019 11:06 [facility] ALKALINE PHOSPHATASE - [facility] 49 38 - 126 U/L 06/05/2019 11:06 [facility] BILIRUBIN TOTAL 0.6 0.2 - 1.3 mg/dL 06/05/2019 11:06 [facility] BUN - [facility] 17 10 - 26 mg/dL 06/05/2019 11:06 [facility] CALCIUM - [facility] 10.9(H) 8.5 - 10.5 mg/dL 06/05/2019 11:06 [facility] Chloride 105 96 - 110 mmol/L 06/05/2019 11:06 [facility] CO2 Total 25 22 - 32 mEq/L 06/05/2019 11:06 [facility] CREATININE 1.02 0.52 - 1.04 mg/dL 06/05/2019 11:06 [facility] eGFR 54 06/05/2019 11:06 [facility] Comment: Stage 3: Moderate renal impairment is defined as GFR 30-59 Multiply result by 1.210 for patients. eGFR calculated using the IDMS-traceable MDRD Study Equation. ??(effective 04/23/2014) Anion Gap 9 0 - 18 06/05/2019 11:06 [facility] GLUCOSE - [facility] 103(H) 70 - 100 mg/dL 06/05/2019 11:06 [facility] Potassium 5.1(H) 3.5 - 5.0 mEq/L 06/05/2019 11:06 [facility] Sodium 139 136 - 145 mEq/L 06/05/2019 11:06 [facility] TOTAL PROTEIN - [facility] 7.6 6.2 - 8.2 gm/dL 06/05/2019 11:06 [facility] SGOT/AST - [facility] 31 14 - 36 U/L 06/05/2019 11:06 [facility] SGPT/ALT - [facility] 28 9 - 52 U/L 9 11:06 [facility] 06/05/2019 9:48 EST 06/05/2019 9:48 EST Narrative [facility] - 06/05/2019 11:06 EST Does PT Have a Latex Allergy? UNKNOWN Ana Epperson RESEARCH INVESTIGATOR CHEMISTRY & BLOOD GA S ORDERABLES [facility] documented in this encounter Visit Diagnoses Diagnosis Status post placement of implantable loop recorder- Primary Other specified cardiac device in situ Paroxysmal atrial fibrillation (HCC-CMS) Atrial fibrillation Current use of fpc 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 Long-term (current) use of anticoagulants Hypomagnesemia Disorders of magnesium metabolism Mixed hyperlipidemia documented in this encounter Care Teams Retail Link Analyst Relationship Specialty Start Date End Date Bryant Crain MD [address] [place] [address] PCP - General 05/04/15 05/17/23 documented as of this encounter
--- OUTSIDE RECORDS SUMMARY | 2024-01-14 11:12 | XMS_ITS | Encounter Summary ---
Author Organization [facility] Address [address] [place] [address] Care Team Providers Care Kerfer Machine Operator Name Role Phone Bryant Crain MD Primary Care Provider [phone] Carlos Ha ICE CREAM MAKER Unavailable [phone] Elba Jett MD Primary Care Provider [phone] Encounter Details Date Type Department Care Team (Late st Contact Info) Description 12/05/2019 Results Only Imaging [facility] Cardiology Clinic [address] [place] [address] Ana Epperson, RAHEEM Social History Tobacco [...] [facility] - [address] [place] [address] 03/08/2024 10:15 EDT Ancillary Procedure [facility] Cardiology - [facility] [address] [place] [address] 04/05/2024 10:00 EDT Ancillary Procedure [facility] Clinic [address] [place] [address] [phone] 04/05/2024 10:00 EDT Office Visit [facility] Cardiology Clinic [address] [place], [place] [phone] Carlos Ha NP [address] [facility] [address]OB[address] [place] [address] documented as of this encounter [...] R07.9 CHEST PAIN, UNSPECIFIED TYPE ? *[facility]* ? *[facility]* ? [address] [facility] ? [place] [address] ? Myocardial Perfusion Imaging - SPECT ? [...] heart rate and ? blood pressure was 42040lc Hg/min. ? Stress ECG: ? RESTING LEXISCAN [...] procedure. This study was interpreted by [facility] ? [facility]. ? Study status: ??Routine. ? [...] this study was interpreted by Nuclear ? Dry Wall Applicator Stone Argueta MD. ? - The Stress ECG portion of this study was interpreted by Stone ? MD Ellie. ? Electronically signed by ? Stone Argueta ? 12/05/2019 10:27 ?Reported By: Stone Argueta MD ? CC: ? Transcribed Date/Time: 12/05/2019 (1316) ? Feedlot Manager: BILL ? Printed Date/Time: 12/05/2019 (867) ? PAGE 3 ? Signed Report ? Procedure Note Stone Argueta MD - 12/05/2019 EXAM: NUCLEAR MEDICINE/NUCLEAR STRESS FUNMILAYO EX. D/ (0853) CLINICAL INFORMATION: R07.9 CHEST PAIN, UNSPECIFIED TYPE *[facility]* *[facility]* [address] [place] [address] Myocardial Perfusion Imaging - SPECT Regadenoson Date [...] the peak heart rateand blood pressure was 77314yl Hg/min. Stress ECG: RESTING LEXISCAN STUDY] NO [...] procedure. This study was interpreted by [facility]. Study status: Routine. Consent: The risks, [...] of this study was interpreted by Nuclear Dry Wall Applicator Stone Argueta MD. - The Stress ECG portion of this study was interpreted by Stone Argueta MD. Electronically signed by Stone Argueta 12/05/2019 10:27 Reported By: Stone Argueta MD CC: Transcribed Date/Time: 12/05/2019 (3239) Feedlot Manager: BILL Printed Date/Time: 12/05/2019 (4176) PAGE 3 Signed Report Ana Epperson ICE CREAM MAKER CARDIAC NM ORDERABLE S * NM CARD SPECT NUCLEAR STRESS (12/05/2019 10:00 EDT) Anatomical Region Laterality Modality Chest Nuclear Stress 12/05/2019 10:0 0 EDT Narrative 12/05/2019 10:27 EDT *[facility]* *[facility]* [address] [place] [address] Myocardial Perfusion Imaging - SPECT Regadenoson Date of study: ??12/05/2019 *PATIENT PRESENTATION* Height: ? 157.5cm (62in) Blood Pressure: Weight: ? 74.1kg (163lb) BSA: ?1.83m^2 Ordering physician: Ana Epperson Planning Rn-Bc Impressions: - Normal perfusion by Tc99m Sestamibi [...] peak heart rate and blood pressure was 16739fx Hg/min. Stress ECG: RESTING LEXISCAN STUDY] NO [...] procedure. This study was interpreted by [facility] Cardiology. ??Study status: ??Routine. ??Consent: ??The [...] of this study was interpreted by Nuclear ??Dry Wall Applicator Stone Argueta MD. - The Stress ECG portion of this study was interpreted by Stone ??MD Ellie. Electronically signed by Stone Argueta 12/05/2019 10:27 Procedure Note Stone Argueta MD - 12/05/2019 *[facility]* *[facility]* [address] [place] [address] Myocardial Perfusion Imaging - SPECT Regadenoson Date [...] Risk factors: Hypertension. Diabetes mellitus. MEDS: SEE [employer]. Imaging Technique: Protocol: Regadenoson. Acquisition: Gated SPECT; [...] peak heart rate and blood pressure was 10331rr Hg/min. Stress ECG: RESTING LEXISCAN STUDY] NO [...] procedure. This study was interpreted by [facility]. Study status: Routine. Consent: The [...] of this study was interpreted by Nuclear Dry Wall Applicator Stone Argueta MD. - The Stress ECG portion of this study was interpreted by Stone Argueta MD. Electronically signed by Stone Argueta 12/05/2019 10:27 Ana Epperson ICE CREAM MAKER CARDIAC NM ORDERABLE S documented in this encounter Visit Diagnoses Not on filedocumented in this encounter Care Teams Kerfer Machine Operator Relationship Specialty Start Date End Date Bryant Crain MD [address] [place] [address] PCP - General 05/04/15 05/17/23 Elba Jett MD [address] [place] [phone] PCP - General Family Medicine - Primary Care 05/18/23 Carlos Ha NP [address] [place] [address] [phone] Consulting Clinician Cardiovascular Disease 09/14/21 documented as of this encounter
--- OUTSIDE RECORDS SUMMARY | 2024-01-14 11:12 | XMS_ITS | Encounter Summary ---
Author Organization [facility] Address [address] [place] [address] Care Team Providers Care Professor Of Biostatistics Name Role Phone Unavailable Primary Care Provider Unavailabl e Encounter Details Date Type Department Care Team (Late st Contact Info) Description 03/02/2001 Results Only [facility] Family Medicine [address] [address] Frnany Davison MD [address] [place] [phone] Social History Tobacco Use Types Packs/Day Years [...] [facility] Cardiology - [address] [place] [address] 03/08/2024 10:15 EDT Ancillary Procedure [facility] Cardiology - [address] [address] 04/05/2024 10:00 EDT Ancillary Procedure [facility]iology Clinic [address] [place] [address] 04/05/2024 10:00 EDT Office Visit [facility] [address] [place] [address] Carlos Ha NP [address] [facility] [address] [place] [address] documented as of this encounter [...] ? GAUTAM, JOANNA ? Accession #: ? [id number] : ? 1950 (Age: 50) ??F ?Collect [...] Davison MD PATHOLOGY ORDERABLES Performing Organization Address City/State/[facility] Co de Phone Number SILVESTRE YANG [address] [place] [address] documented in this encounter Visit Diagnoses Not on filedocumented in this encounter
--- OUTSIDE RECORDS SUMMARY | 2024-01-14 11:12 | XMS_ITS | Encounter Summary ---
Author Organization [facility] Address [address] [place] [address] Care Team Providers Care Museum Curator Name Role Phone Bryant Crain MD Primary Care Provider [phone] Encounter Details Date Type Department Care Team (Late st Contact Info) Description 06/06/2019 Orders Only [facility] Cardiology Clinic [address] [place] [address] Ana Epperson, AWNING CRAFTSPERSON Social History Tobacco Use Types Packs/Day Years [...] Ancillary Procedure [facility] [place] [address] 03/08/2024 10:15 EDT Ancillary Procedure [facility] Cardiology [place] [address] 04/05/2024 10:00 EDT Ancillary Procedure [facility] [address] [place] [phone] 04/05/2024 10:00 EDT Office Visit [facility] [address] [place] [address] [phone] Carlos Ha NP 130 [facility] [address] [place] [address] documented as of this encounter Visit Diagnoses Not on filedocumented in this encounter Care Teams Museum Curator Relationship Specialty Start Date End Date Bryant Crain MD [address] [place], [place] [id number] PCP - General 05/04/15 05/17/23 documented as of this encounter
--- OUTSIDE RECORDS SUMMARY | 2024-01-14 11:12 | XMS_ITS | Encounter Summary ---
Author Organization [facility] Address [address] [place] [address] Care Team Providers Care Flooring Salesperson Name Role Phone Bryant Crain MD Primary Care Provider [phone] Encounter Details Date Type Department Care Team (Late st Contact Info) Description 08/16/2019 Orders Only [facility] Cardiology [facility] [address] [place] [address] Ana Epperson, RAHEEM Status post placement [...] Procedure [facility] Cardiology - [facility] [place] [address] 03/08/2024 10:15 EDT Ancillary Procedure [facility] Cardiology - [facility] [address] [place], [place] [phone] 04/05/2024 10:00 EDT Ancillary Procedure [facility] [address] [place] [address] 04/05/2024 10:00 EDT Office Visit [facility] [address] [place] [address] Carlos Ha NP 130 [facility] MOB-A [address] [place] [address] documented as of this encounter Procedures Procedure Name Priority Date/Time Associated Diagnosis Comments CARDIAC IMPLANT CHECK - REMOTE MONITOR Routine 08/18/2019 10:27 EST Status post placement of implantable loop recorder documented in this encounter Results * CARDIAC IMPLANT CHECK - REMOTE - LOOP RECORDER (ILR) (08/18/2019 10:27 EST) Anatomical Region Laterality Modality Device Narrative 08/18/2019 10:29 EST [facility] Cardiology ILR Visit Drupal Architect: [employer] Device Type: Implantable loop recorder Service: Remote ? Implant Date: 11/09/2017 Indication: Cryptogenic CVA Battery Longevity: good Symptom: 0 Tachycardia: 0 Bradycardia: 0 Pause: 0 AF: 0 Impression: There is adequate battery longevity. The leads and device are functioning normally. The patient will follow up In office in 3 months. Carlos Ha APRN Procedure Note Carlos Ha APRN - 08/18/2019 [facility] Cardiology ILR Visit Drupal Architect: [employer] Device Type: Implantable loop recorder Service: [...] situ documented in this encounter Care Teams Flooring Salesperson Relationship Specialty Start Date End Date Bryant Crain MD [address] [place], [place] [phone] PCP - General 05/04/15 05/17/23 documented as of this encounter
--- OUTSIDE RECORDS SUMMARY | 2024-01-14 11:12 | XMS_ITS | Encounter Summary ---
Author Organization [facility] Address [address] [place] [address] Care Team Providers Care Supervisor Rose Grading Name Role Phone Bryant Crain MD Primary Care Provider [phone] Encounter Details Date Type Department Care Team (Late st Contact Info) Description 05/13/2020 Orders Only [facility] [address] [place] [address] Ana Epperson, RAHEEM Status post placement of [...] [facility] Cardiology - [place] [address] [place] [address] 03/08/2024 10:15 EDT Ancillary Procedure [facility] Card[facility] [address] [place] [address] 04/05/2024 10:[address] [facility] [address] [place] [id number] 04/05/2024 10:[address] [facility] [address] [place] [address] Carlos Macario NP 130 [facility] M[facility]-A [address] [place] [address] documented as of this encounter [...] situ documented in this encounter Care Teams Supervisor Rose Grading Relationship Specialty Start Date End Date Bryant Crain MD [address] [place], [place] [phone] PCP - General 05/04/15 05/17/23 documented as of this encounter
--- OUTSIDE RECORDS SUMMARY | 2024-01-14 11:12 | XMS_ITS | Encounter Summary ---
Author Organization [facility] Address [address] [place] [address] Care Team Providers Care Measurement Specialist Name Role Phone Bryant Crain MD Primary Care Provider [phone] Carlos Ha HAND STEMMER Unavailable [phone] Elba Jett MD Primary Care Provider [phone] Encounter Details Date Type Department Care Team (Late st Contact Info) Description 11/06/2019 Lab Requisition [facility] Pathology & Laboratory Medicine - [facility] [address] [place] [address] Rivas Peterson, [address] [place] [address] Neoplasm of unspecified behavior of bone, soft [...] Procedure [facility] Cardiology - [place] [address] [place], [place] [id number] 03/08/2024 10:15 EDT Ancillary Procedure [facility] Cardiology [place] [address] 04/05/2024 10:00 EDT Ancillary Procedure [facility] Cardiology Clinic [address] [place], [place] [phone] 04/05/2024 10:00 EDT Office Visit [facility] Cardiology Clinic [address] [place] [address] Carlos Ha NP 130 [facility] [address] [place] [address] documented as of this encounter [...] ed, transected at base. 11/07/2019 9:52 T [facility] at 0952 Attestation By the signature below, the attending physician certifies that they have 1) personally conducted a gross and/or microscopic examination of the described specimen(s), and/or personally interpreted the results of laboratory testing of the described specimen(s), and 2) personally rendered or confirmed the above diagnosis. 11/07/2019 9:52 T [facility] at 0952 Clinical History Enlarging non-healing black skin lesion 11/07/2019 9:52 [facility] Gross Description A. Received in formalin labelled with proper patient identification (initials S, D) and right nasal ala is a 1.3 x 1.0 x 0.8 cm ovoid excision of firm castillo-white to focally black skin. The margin is inked. The specimen is trisected and entirely submitted in A1. Mayra Cody 11/06/2019 15:40 11/07/2019 9:52 EDT [facility] Scanned Images 11/07/2019 9:52 EDT [facility] Tissue TISSUE SPECIMEN FROM SKIN / Unknown 11/03/2019 13:15 EDT 11/06/2019 15:35 EDT Rivas Peterson DO PATHOLOGY ORDER PAVEL [facility] [address] [place] [address] documented in this encounter Visit Diagnoses Diagnosis Neoplasm of unspecified behavior of bone, soft tissue, and skin documented in this encounter Care Teams Measurement Specialist Relationship Specialty Start Date End Date Bryant Crain MD [address] [place] [address] PCP - General 05/04/15 05/17/23 Elba Jett MD [address] [place] [phone] PCP - General Family Medicine - Primary Care 05/18/23 Carlos Ha NP [address] [place] [address] [phone] Consulting Clinician Cardiovascular Disease 09/14/21 documented as of this encounter
--- OUTSIDE RECORDS SUMMARY | 2024-01-14 11:12 | XMS_ITS | Encounter Summary ---
Author Organization [facility] Address [address] [place] [address] Care Team Providers Care Loom Control Chain Builder Name Role Phone Bryant Crain MD Primary Care Provider Reason for Visit * Reason Onset Date Comments Cardiac Testing 07/05/2019 Encounter Details Date Type Department Care Team (Late st Contact Info) Description 07/05/2019 Telephone [facility] Cardiology Clinic [address] [place] [address] Ana Epperson, BEHAVIORAL PEDIATRICIAN Cardiac Testing Social History Tobacco Use Types [...] results per Ana. She is currently in [place] and did not get my previous message [...] 07/18/2019 1027 EST Pt was IP at [facility]. She had an ECHO done while IP and is looking for Ana to review and let her know how compares to last ECHO done locally. documented in this encounter Plan of Treatment Upcoming Encounters Date Type Department Care Team (Late st Contact Info) Description 03/08/2024 9:30 EDT Ancillary Procedure [facility] Cardiology - [place] [address] [place] [address] 03/08/2024 10:15 EDT Ancillary Procedure [facility] Cardiology [place] [address] [place] [address] 04/05/2024 10:00 EDT Ancillary Procedure [facility] Cardiology Clinic [address] [place] [address] 04/05/2024 10:00 EDT Office Visit [facility] Cardiology Clinic [address] [place] [address] Carlos Ha NP [address] [place] [address] MOB-A [address] [place] [phone] documented as of this encounter Visit Diagnoses Not on filedocumented in this encounter Care Teams Loom Control Chain Builder Relationship Specialty Start Date End Date Bryant Crain MD [address] [place], [place] [phone] PCP - General 05/04/15 05/17/23 documented as of this encounter
--- OUTSIDE RECORDS SUMMARY | 2024-01-14 11:12 | XMS_ITS | Encounter Summary ---
Author Organization [facility] Address [address] [place] [address] Care Team Providers Care Radial Arm Saw Operator Name Role Phone Bryant Crain MD Primary Care Provider [phone] Encounter Details Date Type Department Care Team (Late st Contact Info) Description 09/14/2019 Orders Only [facility] Cardiology Clinic [address] [place] [address] Ana Epperson, RAHEEM Status post placement [...] EDT Ancillary Procedure [facility] Cardiology - [facility] [place] [address] 03/08/2024 10:15 EDT Ancillary Procedure [facility] Cardiology - [facility] [address] [place], [place] [phone] 04/05/2024 10:00 EDT Ancillary Procedure [facility] Cardiology Clinic [address] [place] [address] 04/05/2024 10:00 EDT Office Visit [facility] Cardiology Clinic [address] [place] [address] Carlos Ha NP 130 [facility] MOB-A [address] [place] [address] documented as of this encounter [...] situ documented in this encounter Care Teams Radial Arm Saw Operator Relationship Specialty Start Date End Date Bryant Crain MD [address] [place] [address] PCP - General 05/04/15 05/17/23 documented as of this encounter
--- OUTSIDE RECORDS SUMMARY | 2024-01-14 11:12 | XMS_ITS | Encounter Summary ---
[place] [address] Care Team Providers Care Water Resources Business Segment Leader Name Role Phone Bryant Crain MD Primary Care Provider [phone] Encounter Details Date Type Department Care Team (Latest Contact Info) Description 11/28/2023 9:05 PM EDT Telehealth [place] [address] Telehealth, Neurology None Bilateral leg numbness; Vertigo [...] Mae MD - 11/28/2023 9:05 PM EDT [facility] TELENEUROLOGY EMERGENT TELENEUROLOGY CONSULT NOTE Date 11/28/23 Patient: Joanna Hart : 1950 Gender: female VISIT Requesting Location: [facility] Requesting Physician: Fatemeh Patiño APRN [...] acute infarct then I would continue low-dose mg/day in the form of Ecotrin. If [...] Patiño APRN in the emergency department at [facility] who voiced understanding and agreement. documented in this encounter Plan of Treatment Upcoming Encounters Date Type Department Care Team (Late st Contact Info) Description 01/14/2024 4:00 PM EDT Office Visit [facility] at [facility] [address] [facility] [place] [address] Ed Geller MD [address] [facility] DERMATOLOGY [place], [place] [phone] documented as of this encounter Visit Diagnoses Diagnosis Bilateral leg numbness Disturbance of skin sensation Vertigo Dizziness and giddiness documented in this encounter Care Teams Water Resources Business Segment Leader Relationship Specialty Start Date End Date Bryant Crain MD [address] [place] [address] PCP - General Internal Medicine 04/15/18 documented as of this encounter
--- OUTSIDE RECORDS SUMMARY | 2024-01-14 11:12 | XMS_ITS | Encounter Summary ---
Author Organization [facility] Address [address] [place] [address] Care Team Providers Care Progressive Care Nurse Name Role Phone Bryant Crain MD Primary Care Provider [phone] Reason for Visit * (Routine) - Order Cancelled Specialty Diagnoses / Procedures Referred By Charo daniel Referred To Contact Diagnoses Status post placement of implantable loop recorder Procedures CARDIAC IMPLANT CHECK - IN CLINIC Ana Epperson, MIXER LEVER OPERATOR 130 [facility] [address] [address] Referral ID Status Reason Start Date Expiration Date V isits Requested Visits Authorized [id number] Order Cancelled 06/05/2019 1 1 Encounter Details Date Type Department Care Team (Latest Contact Info) Description 02/23/2020 12:00 EDT Ancillary Procedure [facility] Cardiology Clinic [address] [place] [address] Status post placement of implantable loop recorder [...] Info) Description 03/08/2024 9:30 EDT Ancillary Procedure [facility] Cardiology - [facility] [address] [place] [address] 03/08/2024 10:15 EDT Ancillary Procedure [facility] Cardiology - [facility] [address] [place] [address] 04/05/2024 10:00 EDT Ancillary Procedure [facility] Cardiology Clinic [address] [place] [id number] 04/05/2024 10:00 EDT Office Visit [facility] Cardiology Clinic [address] [place] [address] Carlos Macario, MIXER LEVER OPERATOR [address] [place] [address]-[address] [place] [phone] documented as of this encounter Procedures Procedure [...] situ documented in this encounter Care Teams Progressive Care Nurse Relationship Specialty Start Date End Date Bryant Crain MD [address] [place] [address] PCP - General 05/04/15 05/17/23 documented as of this encounter
--- OUTSIDE RECORDS SUMMARY | 2024-01-14 11:12 | XMS_ITS | Encounter Summary ---
Author Organization [facility] Address [address] [place] [address] Care Team Providers Care Vegetable Scullion Name Role Phone Bryant Crain MD Primary Care Provider [phone] Reason for Visit * (Routine) - Closed Specialty Diagnoses / Procedures Referred By Charo daniel Referred To Contact Diagnoses Status post placement of implantable loop recorder Procedures CARDIAC IMPLANT CHECK - IN CLINIC Ana Epperson, CASE MANAGEMENT SPECIALIST 130 [facility] [address] [address] Referral ID Status Reason Start Date Expiration Date Visits Re quested Visits Authorized [id number] Closed 06/05/2019 1 1 Encounter Details Date Type Department Care Team (Late st Contact Info) Description 06/05/2019 10:00 EST Ancillary Procedure [facility] Cardiology Clinic [address] [place], [place] [address] Social History Tobacco Use Types Packs/Day Years [...] Ancillary Procedure [facility] Cardiology - [facility] [address] [place], [place] [phone] 03/08/2024 10:15 EDT Ancillary Procedure [facility] Cardiology - [address] [place], [place] [phone] 04/05/2024 10:00 EDT Ancillary Procedure [facility] Cardiology Clinic [address] [place], [place] [address] 04/05/2024 10:00 EDT Office Visit [facility] Cardiology Clinic [address] [place], [place] [address] Carlos Ha, RAHEEM 130 [facility] MOB-A [address] [place] [address] documented as of this encounter [...] the findings below. Procedure Note Ana Epperson, DRESSED POULTRY GRADER - 06/05/2019 I have reviewed the pacemaker interrogation. I agree with the findingsbelow. Ana Epperson NP CV IMPLANTABLE CARDI AC DEVICE documented in this encounter Visit Diagnoses Not on filedocumented in this encounter Care Teams Vegetable Scullion Relationship Specialty Start Date End Date Bryant Crain MD [address] [place] [address] PCP - General 05/04/15 05/17/23 documented as of this encounter
--- OUTSIDE RECORDS SUMMARY | 2024-01-14 11:12 | XMS_ITS | Encounter Summary ---
Author Organization [facility] Address [address] [place] [address] Care Team Providers Care Product Management Manager Name Role Phone Bryant Crain MD Primary Care Provider [phone] Encounter Details Date Type Department Care Team (Late st Contact Info) Description 10/18/2017 Historical Results Only [facility] - Main [place] [address] [place] [address] Janki Jeffries MD [address] [place] [address]-[address] [place] [address] Social History Tobacco Use Types [...] Info) Description 03/08/2024 9:30 EDT Ancillary Procedure [facility] Cardiology - [address] [place], [place] [phone] 03/08/2024 10:15 EDT Ancillary Procedure [facility] Cardiology - [place], [place] [id number] 04/05/2024 10:00 EDT Ancillary Procedure [facility] Cardiology Clinic [address] [place] [address] 04/05/2024 10:00 EDT Office Visit [facility] Cardiology Clinic [address] [place], [place] [address] Carlos Ha NP 130 [facility] MOB-A [address] [place] [phone] documented as of this encounter Procedures Procedure Name Priority Date/Time Associated Diagnosis Comments MICROALBUMIN, URINE Routine 10/18/2017 1 1:30 EDT URINE [id number] NE RATIO (ACR) Routine 10/18/2017 11:30 EDT documented in this encounter Results * (ABNORMAL) MICROALBUMIN, URINE (10/18/2017 11:30 EDT) Albumin, Urine 9.80(H) <1.7 mg/dL 10/18/2017 19:37 EDT [facility] Lab Urine Albumin to Creatinine Ratio 147.5 ug/mg 10/18/2017 19:37 EDT [facility] Comment: Normal: <30 ug/mg Creat Microalbuminuria: 30-300 ug/mg Creat Clinical albuminuria: >300 ug/mg Creat Creatinine, Urine 66.40 mg/dL 10/18/2017 19:37 EDT [facility] 10/18/2017 11:3 0 EDT 10/18/2017 17:14 EDT Janki Jeffries MD HEMATOLOGY & PF4 ORD ERABLES [facility] * (ABNORMAL) ALBUMIN, URINE (10/18/2017 11:30 EDT) Albumin, Urine 9.80(H) <1.7 mg/dL 10/18/2017 19:37 EDT [facility] Lab Urine Albumin to Creatinine Ratio 147.5 ug/mg 10/18/2017 19:37 T [facility] Comment: Normal: <30 ug/mg Creat Microalbuminuria: 30-300 ug/mg Creat Clinical albuminuria: >300 ug/mg Creat Creatinine, Urine 66.40 mg/dL 10/18/2017 19:37 EDT [facility] 10/18/2017 11:3 0 EDT 10/18/2017 17:14 EDT Janki Jeffries MD CHEMISTRY & BLOOD GA S ORDERABLES [facility] documented in this encounter Visit Diagnoses Not on filedocumented in this encounter Care Teams Product Management Manager Relationship Specialty Start Date End Date Bryant Crain MD [address] [place] [address] PCP - General 05/04/15 05/17/23 documented as of this encounter
--- OUTSIDE RECORDS SUMMARY | 2024-01-14 11:12 | XMS_ITS | Encounter Summary ---
Author Organization [facility] Address [address] [place] [address] Care Team Providers Care Welding Machine Operator Gas Name Role Phone Bryant Crain MD Primary Care Provider [phone] Carlos Ha FIBER HEEL PIECE SHAPER Unavailable [phone] Elba Jett MD Primary Care Provider [phone] Encounter Details Date Type Department Care Team (Late st Contact Info) Description 12/14/2019 Lab Requisition [facility] Pathology & Laboratory Medicine - [address] [address] Rivas Peterson, [address] [place] [address] Squamous cell carcinoma of skin, unspecified; Neoplasm [...] Info) Description 03/08/2024 9:30 EDT Ancillary Procedure [facility] Cardiology - [place] [address] [place] [address] 03/08/2024 10:15 EDT Ancillary Procedure [facility] Cardiology - [place] [address] [place] [address] 04/05/2024 10:00 EDT [facility] Procedure [facility] [address] [place] [address] 04/05/2024 10:00 EDT Office Visit [facility] [address] [place] [address] Carlos Ha NP [address] [place] [address]-[address] [place] [address] documented as of this encounter [...] uninvolved by invasive carcinoma. 12/19/2019 12:49 EDT [facility] at 1249 Attestation By the signature below, the attending physician certifies that they have 1) personally conducted a gross and/or microscopic examination of the described specimen(s), and/or personally interpreted the results of laboratory testing of the described specimen(s), and 2) personally rendered or confirmed the above diagnosis. 12/19/2019 12:49 [facility] at 1249 Diagnosis Comment The interpretation of the intraoperative consultation is compatible with the final diagnosis. This sample was processed at the [facility]. The slides were reviewed and the final diagnosis was made at [facility], [address] [place] [address] (CLIA License Number [id number]). 12/19/2019 12:49 [facility] Intraoperative Consultation RIGHT NASAL ALA, FROZEN SECTION: - Scar, no evidence of residual carcinoma in sections examined, margins uninvolved by carcinoma. - FSA1: Scar, no evidence of residual carcinoma in sections examined. Margins uninvolved by carcinoma. - Diagnosis discussed with Dr. Mina Peterson by Dr. Tammi Gallardo. Dr. Tammi Gallardo 12/14/2019 12/19/2019 12:49 [facility] Clinical History SCCA R nasal ala 12:49 [facility] Gross Description A. Received fresh [...] face Mayra Glo 12/15/2019 13:56 12/19/2019 12:49 [facility] Scanned Images 12/19/2019 12:49 [facility] Tissue TISSUE SPECIMEN FROM SKIN / Unknown 12/14/2019 11:22 EDT 12/14/2019 21:38 EDT Rivas Peterson DO PATHOLOGY ORDER PAVEL [facility] [address] [place] [address] documented in this encounter Visit Diagnoses Diagnosis Squamous cell carcinoma of skin, unspecified Neoplasm of unspecified behavior of bone, soft tissue, and skin Actinic keratosis documented in this encounter Care Teams Welding Machine Operator Gas Relationship Specialty Start Date End Date Bryant Crain MD [address] [place] [address] PCP - General 05/04/15 05/17/23 Elba Jett MD [address] [place] [phone] PCP - General Family Medicine - Primary Care 05/18/23 Carlos Ha NP [address] [place] [address] [phone] Consulting Clinician Cardiovascular Disease 09/14/21 documented as of this encounter
--- OUTSIDE RECORDS SUMMARY | 2024-01-14 11:12 | XMS_ITS | Encounter Summary ---
Author Organization [facility] Address [address] [place] [address] Care Team Providers Care Application Tester Name Role Phone Bryant Crain MD Primary Care Provider [phone] Encounter Details Date Type Department Care Team (Late st Contact Info) Description 06/01/[address] [facility] Cardiology Clinic [address] [place], [place] [address] Ana Epperson NP Social History Tobacco Use [...] [facility] Cardiology - [facility] Mikal [place], [place] [id number] 03/08/2024 10:15 EDT Ancillary Procedure [facility] Cardiology - [place] [address] 04/05/2024 10:[address] [facility] [address] [place] [address] 04/05/2024 10:[address] [facility] [address] [place] [address] Carlos Ha NP [address] [facility] [place] [phone] documented as of this encounter Visit Diagnoses [...] 10/02/2020 added in this encounter Care Teams Application Tester Relationship Specialty Start Date End Date Bryant Crain MD [address] [place], [place] [address] PCP - General 05/04/15 05/17/23 documented as of this encounter
--- OUTSIDE RECORDS SUMMARY | 2024-01-14 11:12 | XMS_ITS | Encounter Summary ---
Author Organization [facility] Address [facility] [address] Care Team Providers Care Asbestos Removal Supervisor Name Role Phone Bryant Crain MD Primary Care Provider [phone] Reason for Visit * Auth/Cert (Routine) Specialty Diagnoses / Procedures Referred By Contloreto t Referred To Contact Diagnoses Gastrointestinal hemorrhage, unspecified Procedures [place] [employer] [place] [employer] [facility] Referral ID Status Reason Start Date Expiration Date Visits Re quested Visits Authorized [id number] 1 1 Encounter Details Date Type Department Care Team (Latest Contact Info) Description 11/11/2022 11:43 AM EDT - 11/11/2022 11:59 PM EDT Hospital Encounter [facility] at [address] [phone] Micha Tejeda MD [facility] [place] [address] Discharge Disposition: Home Social History Tobacco Use [...] 4:00 PM EDT Office Visit Dermatology at [place] [address] [place] [address] Ed Geller MD [address] [facility] [place] [address] documented as of this encounter Visit Diagnoses Not on filedocumented in this encounter Care Teams Asbestos Removal Supervisor Relationship Specialty Start Date End Date Bryant Crain MD [address] [place] [address] PCP - General Internal Medicine 04/15/18 documented as of this encounter
--- OUTSIDE RECORDS SUMMARY | 2024-01-14 11:12 | XMS_ITS | Encounter Summary ---
Author Organization [facility] Address [address] [place] [address] Care Team Providers Care Allied Health Instructor Name Role Phone Bryant Crain MD Primary Care Provider [phone] Reason for Visit * Reason Onset Date Comments Other 11/23/2019 Encounter Details Date Type Department Care Team (Late st Contact Info) Description 11/23/2019 Telephone [facility] [address] [place] [address] Ana Epperson, ETIOLOGY TEACHER Other Social History Tobacco Use Types Packs/Day [...] EDT Note faxed to Dr. Peterson at [place], . * Telephone Encounter - Ana Epperson APRN - 11/23/2019 1744 EDT Please send copy of note to Dr. Peterson at [facility]. documented in this encounter Plan of Treatment Upcoming Encounters Date Type Department Care Team (Late st Contact Info) Description 03/08/2024 9:30 EDT Ancillary Procedure [facility] Cardiology [address] [place] [address] 03/08/2024 10:15 EDT Ancillary Procedure [facility] Cardiology [address] [place] [address] 04/05/2024 10:[address] [facility] Cardiology Clinic [address] [place] [address] 04/05/2024 10:[address] [facility] Cardiology Clinic [address] [place] [address] Carlos Ha NP [address] [place] [address]- [address] [place] [phone] documented as of this encounter Visit Diagnoses Not on filedocumented in this encounter Care Teams Allied Health Instructor Relationship Specialty Start Date End Date Bryant Crain MD [address] [place] [address] PCP - General 05/04/15 05/17/23 documented as of this encounter
--- OUTSIDE RECORDS SUMMARY | 2024-01-14 11:13 | XMS_ITS | Encounter Summary ---
[place] [address] Care Team Providers Care Salvage Supervisor Name Role Phone Unavailable Primary Care Provider Unavailabl e Encounter Details Date Type Department Care Team (Late st Contact Info) Description 05/08/2010 4:30 PM EST Office Visit Dermatology [facility] [address] [place] [address] Ed Geller MD [address] [facility] [place] [address] Social History Tobacco Use Types Packs/Day Years [...] 4:00 PM EDT Office Visit Dermatology at [address] [address] Ed Geller MD [address] [facility] [place] [address] documented as of this encounter Visit Diagnoses Not on filedocumented in this encounter
--- OUTSIDE RECORDS SUMMARY | 2024-01-14 11:13 | XMS_ITS | Encounter Summary ---
Author Organization [facility] Address [facility] [place] [address] Care Team Providers Care Applications Systems Engineer Name Role Phone Franny Davison MD Primary Care Provider [phone] Reason for Visit * Reason Comments Diabetes Encounter Details Date Type Department Care Team (Late st Contact Info) Description 07/09/2016 1:30 PM EST Office [place] [address] Luna Galvez MD [facility] [place] [address] Type 2 diabetes mellitus without complication, without [...] management and 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 Diabetes History: Joanna Hart has [...] day to have your insulin doses adjusted. [facility] Endocrine clinic office [facility] diabetes care: Monitoring - continue BG tid ac & hs Diet - low fat/low carb diet Exercise - weight-bearing exercise 30 min/day, as tolerated Thank you for the consult. D/w Dr Tonie Galvez MD Endocrine Fellow Pager- [phone] * Vidhya Schilling MD - 07/09/2016 1:30 [...] 4:00 PM EDT Office Visit Dermatology at [place] [address] [place] [phone] Ed Geller MD [address] [facility] [address] [facility] [address] DERMATOLOGY [place], [place] [phone] documented as of this encounter Procedures Procedure [...] Mellitus, Diabetes Care 2013; 36: Suppl. 1, S67-93 Est Avg Gluc 166 mg/dL [facility] Comment: eAG equivalents for HbA1c percentages: HbA1c(%) ?eAG(mg/dL) 6.0 ?126 6.5 ?140 7.0 ?154 7.5 ?169 8.0 ?183 8.5 ?197 9.0 ?212 9.5 ?226 10.0 ? 240 Limitations: The eAG calculation has not been validated on women, individuals below 18 years old and above 70 years old, and individuals with hemoglobinopathies. Additional resources are available on the ADA website: http://[employer].com/DHMCadacalc Tyrone FINK, Rodger J, Vidal R, et al. ??Translating the A1C assay into estimated average glucose values. ??Diabetes Care 2008:31(8):6558-0215. Blood specimen (specimen) 07/09/2016 2:32 PM EST 07/09/2016 2:39 PM EST Narrative Resulting Agency Comment Spec In Lab Vidhya Schilling MD CHEMISTRY ORDERAB LES [facility] [place] [address] documented in this encounter Visit Diagnoses Diagnosis Type 2 diabetes mellitus without complication, without long-term current use of insulin documented in this encounter Care Teams Applications Systems Engineer Relationship Specialty Start Date End Date Franny Davison MD [address] [place] [address] PCP - General 05/13/10 04/14/18 documented as of this encounter
--- OUTSIDE RECORDS SUMMARY | 2024-01-14 11:13 | XMS_ITS | Encounter Summary ---
[place] [address] Care Team Providers Care Human Resources Services Specialist Name Role Phone Franny Davison MD Primary Care Provider [phone] Encounter Details Date Type Department Care Team (Late st Contact Info) Description 05/08/2010 [place] [address] Ed Willard MD [address] [place] [address] Social History Tobacco Use Types Packs/Day Years Used Date Smoking Tobacco: Never Assessed Sex and Gender Information Value Date Recorded Sex Assigned at Not on file Gender Identity Not on file Sexual Orientation Not on file documented as of this encounter Plan of Treatment Upcoming Encounters Date Type Department Care Team (Late Contact Info) Description 01/14/2024 4:00 PM EDT Office Visit Dermatology at [place] [address] [place] [address] Ed Willard MD [address] [place] [address] documented as of this encounter Procedures Procedure Name Priority Date/Time Associated Diagnosis Comments SURGICAL PATHOLOGY REPORT Routine 05/08/2010 6:17 PM EST documented in this encounter Results * PATHOLOGY SURGICAL PATHOLOGY FINAL REPORT (05/08/2010 6:17 PM EST) Surgical Pathology Report ? [facility] ? Provider: ?? ED WILLARD ?? Pt. Name: ?? JOANNA HART ? Acc #: ?[id number] ? Pt. ? Col Date: ?? 05/08/2010 [...] edge, complete excision is recommended. ? Drs. Robertsonry, Henrique and Erick have reviewed this case [...] Clinical History: ? New atypical mole ? [facility] ? Provider: ?? ED WILLARD ?? Pt. Name: ?? JOANNA HART ? Acc #: ?[id number] ? Pt. ? Col Date: ?? 05/08/2010 ?/Sex: ?1950,(59 years),Female ? Rec Date: ?? 05/09/2010 ?LOC: ?[facility] ? SURGICAL PATHOLOGY ? Clinical Diagnosis: ? Atypical nevus ? Report to: ? _ ? Ed Willard MD, III ? [facility] ? Dermatology ? [place], [place] ??[address] ELOISA DOMINGO 05/08/2010 6:17 PM EST Ed Willard MD PATHOLOGY/CYTOLOGY O RDERABLES Performing Organization Address City/State/[facility] Co de Phone Number ELOISA DOMINGO documented in this encounter Visit Diagnoses Not on filedocumented in this encounter Care Teams Human Resources Services Specialist Relationship Specialty Start Date End Date Franny Davison MD [address] [place] [address] PCP - General 05/13/10 04/14/18 documented as of this encounter
--- OUTSIDE RECORDS SUMMARY | 2024-01-14 11:13 | XMS_ITS | Encounter Summary ---
Author Organization [facility] [place] [address] Care Team Providers Care Case Technician Name Role Phone Bryant Crain MD Primary Care Provider [phone] Reason for Visit * Reason Comments Follow-up Skin Check Encounter Details Date Type Department Care Team (Late st Contact Info) Description 04/17/2019 10:30 AM EDT Office Visit Dermatology at [address] [address] Ed Geller MD [address] [facility] DERMATOLOGY [place], [place] [address] [place] (actinic keratosis) Social History Tobacco Use [...] way. She exercises every day at the [employer] swimming pool. She is no some new [...] 4:00 PM EDT Office Visit Dermatology at [address] [address] Ed Geller MD [address] [facility] [place] [address] documented as of this encounter Visit Diagnoses Diagnosis AK (actinic keratosis) Actinic keratosis documented in this encounter Care Teams Case Technician Relationship Specialty Start Date End Date Bryant Crain MD [address] [place] [address] PCP - General Internal Medicine 04/15/18 documented as of this encounter
--- OUTSIDE RECORDS SUMMARY | 2024-01-14 11:13 | XMS_ITS | Encounter Summary ---
[place] [address] Care Team Providers Care Rasper Machine Operator Name Role Phone Bryant Crain MD Primary Care Provider [phone] Encounter Details Date Type Department Care Team (Late st Contact Info) Description 09/14/2022 External Results [place] [address] Social History Tobacco Use Types Packs/Day Years [...] 4:00 PM EDT Office Visit Dermatology at [place] [address] [place] [address] Ed Geller MD [address] [facility] [place] [address] documented as of this encounter Procedures Procedure Name Priority Date/Time Associated Diagnosis Comments ECG SCAN Routine 09/14/2022 documented in this encounter Results * Scan Doc: ECG (09/14/2022) Historical Provider MD ORTEGA MGR SCAN EX T ORDR/RSLT documented in this encounter Visit Diagnoses Not on filedocumented in this encounter Care Teams Rasper Machine Operator Relationship Specialty Start Date End Date Bryant Crain MD [address] [place] [address] PCP - General Internal Medicine 04/15/18 documented as of this encounter
--- OUTSIDE RECORDS SUMMARY | 2024-01-14 11:13 | XMS_ITS | Encounter Summary ---
Author Organization [facility] Address [facility] [place] [address] Care Team Providers Care Cd Reactor Operator Name Role Phone Franny Davison MD Primary Care Provider [phone] Reason for Visit * Reason Onset Date Comments Medication Refill 02/20/2016 Encounter Details Date Type Department Care Team (Late st Contact Info) Description 02/20/2016 Refill [place] [address] Luna Galvez MD [facility] [place] [address] Diabetes mellitus without complication Social History Tobacco [...] 4:00 PM EDT Office Visit Dermatology at [address] [place] [address] Ed Geller MD [address] [facility] [place] [address] documented as of this encounter Visit Diagnoses Diagnosis Diabetes mellitus without complication Type II or unspecified type diabetes mellitus without mention of complication, not stated as uncontrolled documented in this encounter Care Teams Cd Reactor Operator Relationship Specialty Start Date End Date Franny Davison MD [address] [place] [address] PCP - General 05/13/10 04/14/18 documented as of this encounter
--- OUTSIDE RECORDS SUMMARY | 2024-01-14 11:13 | XMS_ITS | Encounter Summary ---
Author Organization [facility] [place] [address] Care Team Providers Care Ditch Tender Name Role Phone Bryant Crain MD Primary Care Provider Encounter Details Date Type Department Care Team (Late st Contact Info) Description 11/02/2022 Ancillary Procedure [place] [address] Milagros Joseph MD [facility] [place] [address] Social History Tobacco Use Types Packs/Day Years [...] 4:00 PM EDT Office Visit Dermatology at [place] [address] [facility] [address] [facility] [place] [address] Ed Geller MD [address] [facility] [place] [address] documented as of this encounter Procedures Procedure Name Priority Date/Time Associated Diagnosis Comments FILM LIBRARY STORAGE ONLY CT ABDOMEN AND PELVIS Routine 11/02/2022 12:00 AM EDT documented in this encounter Results * Film Library- Storage Only CT Abdomen & Pelvis (11/02/2022 12:00 AM EDT) Narrative KIMBERLY - 11/11/2022 7:36 AM EDT This exam is auto-finalizing. It's purpose is for storage only. Milagros Joseph MD IMG FILM LIBRARY ORD ERABLES Performing Organization Address City/State/[facility] Co de Phone Number [place], [place] documented in this encounter Visit Diagnoses Not on filedocumented in this encounter Care Teams Ditch Tender Relationship Specialty Start Date End Date Bryant Crain MD [address] [place] [address] PCP - General Internal Medicine 04/15/18 documented as of this encounter
--- OUTSIDE RECORDS SUMMARY | 2024-01-14 11:13 | XMS_ITS | Encounter Summary ---
Author Organization [facility] [place] [address] Care Team Providers Care Senior Mechanical Technician Name Role Phone Franny Davison MD Primary Care Provider [phone] Reason for Visit * Reason Onset Date Comments Medication Refill 03/23/2016 Encounter Details Date Type Department Care Team (Late st Contact Info) Description 03/23/2016 [place] [address] Luna Galvez MD [facility] [place] [address] Diabetes mellitus without complication Social History Tobacco [...] 4:00 PM EDT Office Visit Dermatology at [place] [address] [place] [address] Ed Geller MD [address] [facility] [place] [address] documented as of this encounter Visit Diagnoses Diagnosis Diabetes mellitus without complication Type II or unspecified type diabetes mellitus without mention of complication, not stated as uncontrolled documented in this encounter Care Teams Senior Mechanical Technician Relationship Specialty Start Date End Date Franny Davison MD [address] [place] [address] PCP - General 05/13/10 04/14/18 documented as of this encounter
--- OUTSIDE RECORDS SUMMARY | 2024-01-14 11:13 | XMS_ITS | Encounter Summary ---
Author Organization [facility] [place] [address] Care Team Providers Care Executive Community Planning Name Role Phone Bryant Crain MD Primary Care Provider [phone] Reason for Visit * Consultation (Routine) - Specialty Diagnoses / Procedures Referred By Charo daniel Referred To Contact Dermatology Diagnoses Disorder of the skin and subcutaneous tissue, unspecified Skin Lesion of face Procedures Consult Franny Davison MD [address] [place] [address] Ed Geller MD [address] [place] [address] [place] [address] Referral ID Status Reason Start Date Expiration Date V isits Requested Visits Authorized [id number] 01/19/2018 01/19/2019 1 1 Encounter Details Date Type Department Care Team (Late st Contact Info) Description 04/15/2018 3:45 PM EDT Office Visit Dermatology at [address] [address] Ed Geller MD [address] [place] [address] [place] [address] [place] (actinic keratosis) Social History [...] and is exercising every day at the [employer]. She is no some new spots on her face. After our last 2014 course of 5-FU she was clear until just recently. Physical examination reveals a pleasant 67-year-old man who has very fair [place] skin type II Peterson pigmentation and small [...] 4:00 PM EDT Office Visit Dermatology at [place] [address] [place] [address] Ed Geller MD [address] [facility] [place] [address] documented as of this encounter Visit Diagnoses Diagnosis AK (actinic keratosis) Actinic keratosis documented in this encounter Care Teams Executive Community Planning Relationship Specialty Start Date End Date Bryant Crain MD [address] [place] [address] PCP - General Internal Medicine 04/15/18 documented as of this encounter
--- OUTSIDE RECORDS SUMMARY | 2024-01-14 11:13 | XMS_ITS | Encounter Summary ---
[place] [address] Care Team Providers Care [employer] Hazmat Tanker Driver Name Role Phone Franny Davison MD Primary Care Provider Reason for Referral * Diagnostic Test (Routine) - Closed Specialty Diagnoses / Procedures Referred By Contac t Referred To Contact Radiology Diagnoses Cerebrovascular accident (CVA), unspecified mechanism Procedures MRI Cardiac Morph Func o Contrast Justin Squires MD [address] [place] [address] [place] [address] Referral ID Status Reason Start Date Expiration Date V isits Requested Visits Authorized [id number] Closed Specialty Service Requested 05/20/2017 05/20/2018 1 1 Reason for Visit * Diagnostic Test (Routine) - Closed Specialty Diagnoses / Procedures Referred By Contac t Referred To Contact Radiology Diagnoses Cerebrovascular accident (CVA), unspecified mechanism Procedures MRI Cardiac Morph Func wwo Contrast Justin Squires MD [address] [place] [address] [place] [address] Referral ID Status Reason Start Date Expiration Date V isits Requested Visits Authorized [id number] Closed Specialty Service Requested 05/20/2017 05/20/2018 1 1 Encounter Details Date Type Department Care Team (Late st Contact Info) Description 05/27/2017 8:28 AM EST - 05/27/2017 11:59 PM EST Hospital Encounter MRI at [facility] [place] [address] Justin Squires MD [address] [place] [address] Cerebrovascular accident (CVA), unspecified mechanism Discharge Disposition: [...] 4:00 PM EDT Office Visit Dermatology at [place] [address] [facility] [place] [address] Ed Geller MD [address] [facility] [place] [address] documented as of this encounter Procedures Procedure [...] mLs documented in this encounter Care Teams Regional Company Hazmat Tanker Driver Relationship Specialty Start Date End Date Franny Davison MD [address] [place] [address] PCP - General 05/13/10 04/14/18 documented as of this encounter
--- OUTSIDE RECORDS SUMMARY | 2024-01-14 11:13 | XMS_ITS | Encounter Summary ---
Author Organization [facility] [place] [address] Care Team Providers Care Payment Poster Name Role Phone Franny Davison MD Primary Care Provider [phone] Reason for Visit * Reason Comments Skin Lesion Encounter Details Date Type Department Care Team (Late st Contact Info) Description 01/27/2011 11:00 AM EDT Office Visit Dermatology [address] [place] [address] [address] [place] [address] Ed Geller MD 580 [facility] [place] [address] Actinic keratosis (Primary Dx) Social History Tobacco [...] 30gm dispensed to be faxed to her [facility] from the [facility]. d. Recommended that the patient also [...] 4:00 PM EDT Office Visit Dermatology at [place] [address] [place] [address] Ed Geller MD [address] [place] [address] [place] [address] documented as of this encounter Visit Diagnoses Diagnosis Actinic keratosis- Primary documented in this encounter Care Teams Payment Poster Relationship Specialty Start Date End Date Franny Davison MD [address] [place] [address] PCP - General 05/13/10 04/14/18 documented as of this encounter
--- OUTSIDE RECORDS SUMMARY | 2024-01-14 11:13 | XMS_ITS | Encounter Summary ---
Author Organization [facility] Address [facility] [place] [address] Care Team Providers Care [employer] Department Head Name Role Phone Bryant Crain MD Primary Care Provider Encounter Details Date Type Department Care Team (Late st Contact Info) Description 09/14/2022 Telephone Cardiology at [address] [address] Jt Pedro PA [facility] [place] [address] Social History Tobacco Use Types Packs/Day Years [...] 4:00 PM EDT Office Visit Dermatology at [address] [phone] Ed Geller MD 580 [facility] [place] [address] documented as of this encounter Visit Diagnoses Not on filedocumented in this encounter Care Teams College [employer] Department Head Relationship Specialty Start Date End Date Bryant Crain MD [address] [place] [address] PCP - General Internal Medicine 04/15/18 documented as of this encounter
--- OUTSIDE RECORDS SUMMARY | 2024-01-14 11:13 | XMS_ITS | Encounter Summary ---
Author Organization [facility] [place] [address] Care Team Providers Care Patient Case Coordinator Name Role Phone Bryant Crain MD Primary Care Provider Encounter Details Date Type Department Care Team (Late st Contact Info) Description 09/14/2022 Telephone Cardiology at [address] [address] Eric Rutledge MD [facility] [place] [address] Social History Tobacco Use Types Packs/Day Years [...] PM Referring Provider: Dr. Ferrer Patient Location: [facility] Past Medical History: HTN DM Presenting Symptoms per OSH: 72F with history as above presented to [facility] with RLE heaviness. - Unclear history but [...] 4:00 PM EDT Office Visit Dermatology at [place] [address] [place] [phone] Ed Geller MD 580 [facility] [place] [address] documented as of this encounter Visit Diagnoses Not on filedocumented in this encounter Care Teams Patient Case Coordinator Relationship Specialty Start Date End Date Bryant Crain MD [address] [place] [address] PCP - General Internal Medicine 04/15/18 documented as of this encounter
--- OUTSIDE RECORDS SUMMARY | 2024-01-14 11:13 | XMS_ITS | Encounter Summary ---
Author Organization [facility] Address [facility] [place] [address] Care Team Providers Care Bundle Packer Name Role Phone Franny Davison MD Primary Care Provider [phone] Reason for Visit * Reason Comments Diabetes * Consultation (Routine) - Closed Specialty Diagnoses / Procedures Referred By Contloreto t Referred To Contact Endocrinology Diagnoses diabetes type 2 requiring insulin - poorly controlled Franny Davison MD [address] [place] [address] [facility] [address] [place] [id number] Referral ID Status Reason Start Date Expiration Date V isits Requested Visits Authorized [id number] Closed Evaluate [facility] 01/09/2016 01/08/2017 1 1 Encounter Details Date Type Department Care Team (Late st Contact Info) Description 02/18/2016 3:30 PM EDT Office Visit [place]ocr[place] [address] Vidhya Schilling MD [facility] [place] [address] Luna Galvez MD [facility] [place] [address] Diabetes mellitus without complication Social [...] day to have your insulin doses adjusted. [facility] Endocrine clinic office documented in this encounter Progress Notes * Luna Galvez MD - 02/18/2016 3:30 PM EDT Diabetes Outpatient Consult Date of Consultation: 02/18/2016 Consult Requested by: Dr. Davison Reason for Consultation: Joanna Hart is a 65 y.o. years old female with PMH significant for DMT2 . We are being consulted to assist with diabetes management and to provide a [facility] of [facility] diabetes care. Diabetes History: Joanna Hart has [...] BG of 58 during driving, had to caul puller Diabetes Complications Status: Eyes: None had [...] day to have your insulin doses adjusted. [facility] Endocrine clinic office stakeholder manager diabetes care: Medications - Outpatient treatment regimen recommendations pending based on the hospital course. Monitoring - continue BG tid ac & hs Diet - low fat/low carb diet Exercise - weight-bearing exercise 30 min/day, as tolerated Thank you for the consult D/w Dr Tonie Galvez MD Endocrine Fellow Pager- [phone] * Vidhya Schilling MD - 02/18/2016 3:30 [...] glipizideER 10 mg qd and moderatedose of [id number] mg bid. She can stop meal-associated novolog [...] 4:00 PM EDT Office Visit Dermatology at [place] [address] [place] [address] Ed Geller MD 580 [facility] [place] [address] documented as of this encounter Visit Diagnoses Diagnosis Diabetes mellitus without complication Type II or unspecified type diabetes mellitus without mention of complication, not stated as uncontrolled documented in this encounter Care Teams Bundle Packer Relationship Specialty Start Date End Date Franny Davison MD [address] [place] [address] PCP - General 05/13/10 04/14/18 documented as of this encounter
--- OUTSIDE RECORDS SUMMARY | 2024-01-14 11:13 | XMS_ITS | Encounter Summary ---
[place] [address] Care Team Providers Care Automotive Vehicle Inspector Name Role Phone Bryant Crain MD Primary Care Provider [phone] Encounter Details Date Type Department Care Team (Late st Contact Info) Description 10/30/2022 External Results [place] [phone] Social History Tobacco Use Types Packs/Day Years [...] 4:00 PM EDT Office Visit Dermatology at [place] 580 [facility] [place] [phone] Ed Geller MD 580 [facility] [place] [address] documented as of this encounter Procedures Procedure Name Priority Date/Time Associated Diagnosis Comments ECG SCAN Routine 10/30/2022 documented in this encounter Results * Scan Doc: ECG (10/30/2022) Historical Provider MD ORTEGA MGR SCAN EX T ORDR/RSLT documented in this encounter Visit Diagnoses Not on filedocumented in this encounter Care Teams Automotive Vehicle Inspector Relationship Specialty Start Date End Date Bryant Crain MD [address] [place] [address] PCP - General Internal Medicine 04/15/18 documented as of this encounter
--- OUTSIDE RECORDS SUMMARY | 2024-01-14 11:13 | XMS_ITS | Encounter Summary ---
Author Organization [facility] [place] [address] Care Team Providers Care Yoke Setter Name Role Phone Franny Davison MD Primary Care Provider [phone] Reason for Visit * Reason Comments Skin Check Encounter Details Date Type Department Care Team (Late st Contact Info) Description 10/26/2011 8:45 AM EDT Office Visit Dermatology [address] [place] [address] [address] [place] [address] Ed Geller MD 580 [facility] [place] [address] Actinic keratosis (Primary Dx) Social History Tobacco [...] 4:00 PM EDT Office Visit Dermatology at [place] [address] [place] [address] Ed Geller MD 580 [facility] [place] [address] documented as of this encounter Visit Diagnoses Diagnosis Actinic keratosis- Primary documented in this encounter Care Teams Yoke Setter Relationship Specialty Start Date End Date Franny Davison MD [address] [place] [address] PCP - General 05/13/10 04/14/18 documented as of this encounter
--- OUTSIDE RECORDS SUMMARY | 2024-01-14 11:13 | XMS_ITS | Encounter Summary ---
[place] [address] Care Team Providers Care Hydrogen Power Plant Engineer Name Role Phone Franny Davison MD Primary Care Provider [phone] Reason for Visit * Reason Onset Date Comments Prior Authorization 03/02/2016 Encounter Details Date Type Department Care Team (Late st Contact Info) Description 03/02/2016 Telephone [place] [phone] Tammy Mason Prior Authorization Social History Tobacco [...] TYPE 2 Health plan: [employer] Authorizing outside sales account representative name: TAMMY Faxed to health plan on: 03/02/16 Health plan decision: DENIED Quantity approved: Preferred Medications: Bydureon/Byetta, and Trulicity. Authorization number: Start date: End date: Patient notified? Pharmacy notified? documented in this encounter Plan of Treatment Upcoming Encounters Date Type Department Care Team (Late st Contact Info) Description 01/14/2024 4:00 PM EDT Office Visit Dermatology at [place] [address] [place] [address] Ed Geller MD 580 [facility] [place] [address] documented as of this encounter Visit Diagnoses Not on filedocumented in this encounter Care Teams Hydrogen Power Plant Engineer Relationship Specialty Start Date End Date Franny Davison MD [address] [place] [address] PCP - General 05/13/10 04/14/18 documented as of this encounter
--- OUTSIDE RECORDS SUMMARY | 2024-01-14 11:13 | XMS_ITS | Encounter Summary ---
[place] [address] Care Team Providers Care Walking Dragline Operator Name Role Phone Franny Davison MD Primary Care Provider [phone] Reason for Visit * Reason Onset Date Comments Medication Refill 03/26/2017 Encounter Details Date Type Department Care Team (Late st Contact Info) Description 03/26/2017 [place] [address] Erin Chery MA Social History Tobacco Use [...] 4:00 PM EDT Office Visit Dermatology at [place] [address] [place] [address] Ed Geller MD 580 [facility] [place] [address] documented as of this encounter Visit Diagnoses Not on filedocumented in this encounter Care Teams Walking Dragline Operator Relationship Specialty Start Date End Date Franny Davison MD [address] [place] [address] PCP - General 05/13/10 04/14/18 documented as of this encounter
--- OUTSIDE RECORDS SUMMARY | 2024-01-14 11:13 | XMS_ITS | Encounter Summary ---
Author Organization [facility] [place] [address] Care Team Providers Care Order Picker/Assembler Name Role Phone Franny Davison MD Primary Care Provider [phone] Encounter Details Date Type Department Care Team (Late st Contact Info) Description 01/07/2017 [place] [phone] Queta Arcos LPN Social History Tobacco Use [...] change my meds Call transferred to secretary to board of commissioners. Scheduled for 01/12/17 documented in this encounter Plan of Treatment Upcoming Encounters Date Type Department Care Team (Late st Contact Info) Description 01/14/2024 4:00 PM EDT Office Visit Dermatology at [place] [address] [place] [address] Ed Geller MD 580 [facility] [place] [address] documented as of this encounter Visit Diagnoses Not on filedocumented in this encounter Care Teams Order Picker/Assembler Relationship Specialty Start Date End Date Franny Davison MD [address] [place] [address] PCP - General 05/13/10 04/14/18 documented as of this encounter
--- OUTSIDE RECORDS SUMMARY | 2024-01-14 11:13 | XMS_ITS | Encounter Summary ---
Author Organization [facility] Address [facility] [place] [address] Care Team Providers Care Livestock Dealer Name Role Phone Franny Davison MD Primary Care Provider [phone] Encounter Details Date Type Department Care Team (Late st Contact Info) Description 05/01/2017 Telephone [place] [phone] Mark Mcclure MD [facility] [place] [address] Social History Tobacco Use Types Packs/Day Years [...] I was called by Eli Rosario at [facility] regarding this patient. The patient [...] 4:00 PM EDT Office Visit Dermatology at [place] [address] [place] [address] Ed Geller MD 580 [facility] [place] [address] documented as of this encounter Visit Diagnoses Not on filedocumented in this encounter Care Teams Livestock Dealer Relationship Specialty Start Date End Date Franny Davison MD [address] [place] [address] PCP - General 05/13/10 04/14/18 documented as of this encounter
--- OUTSIDE RECORDS SUMMARY | 2024-01-14 11:13 | XMS_ITS | Encounter Summary ---
Author Organization [facility] [place] [address] Care Team Providers Care Manager Transmission Name Role Phone Franny Davison MD Primary Care Provider [phone] Reason for Visit * Reason Comments Follow-up Encounter Details Date Type Department Care Team (Late st Contact Info) Description 04/20/2011 4:45 PM EDT Office Visit Dermatology [address] [place] [address] [address] [place] [address] Ed Geller MD [address] [facility] [place] [address] Actinic keratosis treated with topical [...] given with no refills to fill at [facility]. c. RTC then in six months for repeat check. Cc: Franny Davison MD documented in this encounter Plan of Treatment Upcoming Encounters Date Type Department Care Team (Late st Contact Info) Description 01/14/2024 4:00 PM EDT Office Visit Dermatology at [address] [address] Ed Geller MD [address] [facility] [place] [address] documented as of this encounter Visit Diagnoses Diagnosis Actinic keratosis treated with topical fluorouracil (5FU)- Primary Actinic keratosis documented in this encounter Care Teams Manager Transmission Relationship Specialty Start Date End Date Franny Davison MD [address] [place] [address] PCP - General 05/13/10 04/14/18 documented as of this encounter
--- OUTSIDE RECORDS SUMMARY | 2024-01-14 11:13 | XMS_ITS | Encounter Summary ---
[place] [address] Care Team Providers Care Registered Nurse Obstetrics Name Role Phone Franny Davison MD Primary Care Provider [phone] Reason for Visit * Reason Onset Date Comments Medication Refill 03/26/2016 Encounter Details Date Type Department Care Team (Late st Contact Info) Description 03/26/2016 Refill [place] [phone] Karrie Buck RN Social History Tobacco Use [...] 4:00 PM EDT Office Visit Dermatology at [address] [address] Ed Geller MD 580 [facility] [place] [address] documented as of this encounter Visit Diagnoses Not on filedocumented in this encounter Care Teams Registered Nurse Obstetrics Relationship Specialty Start Date End Date Franny Davison MD [address] [place] [address] PCP - General 05/13/10 04/14/18 documented as of this encounter
--- OUTSIDE RECORDS SUMMARY | 2024-01-14 11:13 | XMS_ITS | Encounter Summary ---
[place] [address] Care Team Providers Care Human Relations Manager Name Role Phone Franny Davison MD Primary Care Provider [phone] Encounter Details Date Type Department Care Team (Late st Contact Info) Description 03/02/2016 Telephone [place] [phone] Queta Arcos LPN Social History Tobacco Use [...] PA is needed for [place]. Forward to school attendance secretary for PA documented in this encounter Plan of Treatment Upcoming Encounters Date Type Department Care Team (Late st Contact Info) Description 01/14/2024 4:00 PM EDT Office Visit Dermatology at [place] 580 [facility] [place] [address] Ed Geller MD 580 [facility] DERMAT[facility]Y [place], [place] [address] documented as of this encounter Visit Diagnoses Not on filedocumented in this encounter Care Teams Human Relations Manager Relationship Specialty Start Date End Date Franny Davison MD [address] [place] [address] PCP - General 05/13/10 04/14/18 documented as of this encounter
--- OUTSIDE RECORDS SUMMARY | 2024-01-14 11:13 | XMS_ITS | Encounter Summary ---
Author Organization [facility] [place] [address] Care Team Providers Care Piercing Specialist Name Role Phone Bryant Crain MD Primary Care Provider Encounter Details Date Type Department Care Team (Late st Contact Info) Description 05/08/2010 Orders Only Dermatology at [address] [phone] Ed Geller MD [address] [place] [address] [place] [address] Social History Tobacco Use Types Packs/Day Years Used Date Smoking Tobacco: Never Assessed Sex and Gender Information Value Date Recorded Sex Assigned at Not on file Gender Identity Not on file Sexual Orientation Not on file documented as of this encounter Plan of Treatment Upcoming Encounters Date Type Department Care Team (Late Contact Info) Description 01/14/2024 4:00 PM EDT Office Visit Dermatology at [address] [phone] Ed Geller MD [address] [place] [address] DERMATOLOGY [place], [place] [address] documented as of this encounter Procedures Procedure Name Priority Date/Time Associated Diagnosis Comments SURGICAL PATHOLOGY REPORT Routine 05/08/2010 6:17 PM EST documented in this encounter Results * Surgical Pathology Report (05/08/2010 6:17 PM EST) Surgical Pathology Report [id number] ? Location: [facility] The signing pathologist has (i) examined the relevant preparation(s) for the specimen(s) and (ii) rendered or confirmed the diagnosis(es). . ?Pathology Surgical Pathology Final Report Clinical Information Specimen Submitted: A - Distal dorsal (R) foot, near base of 3rd toe, punch Clinical History: New atypical mole Clinical Diagnosis: Atypical nevus Report to: _ Ed Geller MD, [facility] [place]ermatology [place], [place] [address] Gross Description Labeled/Fixative: ? Distal dorsal R [...] PM EST Ed Geller MD PATHOLOGY/CYTOLOGY O RDERABLES ELOISA DOMINGO documented in this encounter Visit Diagnoses Not on filedocumented in this encounter Care Teams Piercing Specialist Relationship Specialty Start Date End Date Bryant Crain MD [address] [place] [address] PCP - General Internal Medicine 04/15/18 documented as of this encounter
--- OUTSIDE RECORDS SUMMARY | 2024-01-14 11:13 | XMS_ITS | Encounter Summary ---
Author Organization [facility] [place] [address] Care Team Providers Care Water Resource Manager Name Role Phone Franny Davison MD Primary Care Provider [phone] Reason for Visit * Reason Comments Skin Lesion Encounter Details Date Type Department Care Team (Late st Contact Info) Description 03/12/2015 4:00 PM EDT Office Visit Dermatology at [address] [address] Ed Geller MD 580 [facility] DER[facility] [place], [place] [address] [place] (actinic keratosis) Discharge Disposition: Home Social [...] 4:00 PM EDT Office Visit Dermatology at [address] [address] Ed Geller MD 580 [facility] [place] [address] documented as of this encounter Visit Diagnoses Diagnosis [place] (actinic keratosis) Actinic keratosis documented in this encounter Care Teams Water Resource Manager Relationship Specialty Start Date End Date Franny Davison MD [address] [place] [address] PCP - General 05/13/10 04/14/18 documented as of this encounter
--- OUTSIDE RECORDS SUMMARY | 2024-01-14 11:13 | XMS_ITS | Encounter Summary ---
Author Organization [facility] Address [facility] [place] [address] Care Team Providers Care Factory Representative Name Role Phone Bryant Crain MD Primary Care Provider [phone] Encounter Details Date Type Department Care Team (Late st Contact Info) Description 10/30/2022 Telephone Cardiology at [address] [phone] Edgardo Odonnell MD [facility] [place] [address] Social History Tobacco Use Types Packs/Day Years [...] Odonnell MD - 10/30/2022 4:52 PM EDT [place] a call from ED physician Dr. Latisha [...] a non-actionable finding. Edgardo Odonnell MD, PhD, [facility] Cardiac Electrophysiology 10/30/2022 4:55 PM documented in this encounter Plan of Treatment Upcoming Encounters Date Type Department Care Team (Late st Contact Info) Description 01/14/2024 4:00 PM EDT Office Visit Dermatology at [place] [address] [place] [address] Ed Geller MD [address] [facility] [place] [address] documented as of this encounter Visit Diagnoses Not on filedocumented in this encounter Care Teams Factory Representative Relationship Specialty Start Date End Date Bryant Crain MD [address] [place] [address] PCP - General Internal Medicine 04/15/18 documented as of this encounter
--- OUTSIDE RECORDS SUMMARY | 2024-01-14 11:13 | XMS_ITS | Encounter Summary ---
[place] [address] Care Team Providers Care Funeral Professional Name Role Phone Franny Davison MD Primary Care Provider [phone] Encounter Details Date Type Department Care Team (Latest Contact Info) Description 01/12/2017 2:00 PM EDT Laboratory Appointment Lab [address] [place] [id number] Type 2 diabetes mellitus without complication, without [...] 4:00 PM EDT Office Visit Dermatology at [place] [address] [facility] [place] [address] Ed Geller MD 580 [facility] DERMAT[facility]Y [place], [place] [phone] documented as of this encounter Procedures Procedure [...] Random 253(H) 0 - 29 mcg/mg Cr [facility] Comment: Reference Ranges: <30 mcg/mg: [...] 362 U Albumin Conc, Random 243.2 mg/L [facility] U Creatinine 96 mg/dL [facility] Urine specimen (specimen) 01/12/2017 2:17 PM EDT 01/12/2017 2:23 PM EDT Narrative Resulting Agency Comment Spec In Lab Shikha Poole APRN URINE ORDERABLES [facility] [place] [address] * LDL Cholesterol, Direct (01/12/2017 2:17 PM EDT) LDL Chol Direct 142 <=190 mg/dL [facility] Blood specimen (specimen) 01/12/2017 2:17 PM EDT 01/12/2017 2:22 PM EDT Narrative Resulting Agency Comment Spec In Lab Shikha Emily Poole CHORAL TEACHER CHEMISTRY ORDERABLE S [facility] [place] [address] * (ABNORMAL) HDL/Cholesterol Profile (01/12/2017 2:17 PM EDT) Chol, Total 245(H) <=239 mg/dL [facility] HDL 40 >=40 mg/dL [facility] Chol/HDL Ratio 6.1 ratio [facility] Chol/HDL Interpretation See Note [facility] Comment: Lipid management should be guided by a patient? s ASCVD risk, goals and preferences. ACC/AHA Guidelines recommend high intensity statin if clinical ASCVD or LDL greater than or equal to 190 mg/dL. http://Unified.com/EBO-GFK-Hldspuodi Measure LDL if Total Cholesterol minus HDL Cholesterol is greater than 220 mg/dL. Adults aged 40-75 with LDL 70-189 mg/dL should have their 10 year ASCVD risk estimated with the ACC/AHA ASCVD risk drapery and upholstery estimator http://tools.acc.org/AQQWA-Xplb-Nbegjfbxp/ Statin should be discussed if risk greater [...] Agency Comment Spec In Lab Shikha Poole CHORAL TEACHER CHEMISTRY ORDERABLE S [facility] [place] [address] * (ABNORMAL) Hemoglobin A1c (01/12/2017 2:17 PM EDT) Hemoglobin A1C 7.4(H) 4.3 - 5.6 % [facility] Comment: Reference Range: 4.3 - [...] 1, S67-74 Est Avg Gluc 166 mg/dL [facility] Comment: eAG equivalents for [...] into estimated average glucose values. ??Diabetes Care 2008:31(8):6848-7544. Blood specimen (specimen) 01/12/2017 2:17 PM EDT 01/12/2017 2:22 PM EDT Narrative Resulting Agency Comment Spec In Lab Shikha Poole JUSTIN CHEMISTRY ORDERABLE S [facility] [place] [address] * (ABNORMAL) Basic Metabolic Panel (non-fasting) (01/12/2017 2:17 PM EDT) Glucose Lvl 212(H) 65 - 199 mg/dL [facility] Comment:Diabetes: >=200 mg/d L plus symptoms BUN 17 8 - 18 mg/dL [facility] Creatinine 0.88 0.70 - 1.20 mg/dL [facility] Comment: Please note that the pediatric reference intervals supplied above were not validated at [facility]. Results from pediatric patients should be interpreted in conjunction to the patient's age, height and muscle mass. Sodium 143 135 - 145 mmol/L [facility] Potassium 4.7 3.5 - 5.0 mmol/L [facility] Comment: Please note: ??Patients with WBC >100,000 may have falsely elevated Potassium levels. ??For accurate Potassium quantification in these patients send serum separator tube (gold top) for subsequent determinations. ??Contact the Clinical Chemistry Laboratory if there are any questions. Chloride 105 98 - 107 mmol/L [facility] CO2 24 22 - 31 mmol/L [facility] Anion Gap 14 5 - 15 mmol/L [facility] Calcium 10.9(H) 8.5 - 10.5 mg/dL [facility] Estimated GFR >60 >=60 HOLDEN [...] the following links into your internet browser. [email or web address] Insight/DHnkdep [email or web address] Insight/DHMCnkf Blood specimen (specimen) 01/12/2017 2:17 PM EDT 01/12/2017 2:22 PM EDT Narrative Resulting Agency Comment Spec In Lab Shikha Poole CHORAL TEACHER [place] [address] documented in this encounter Visit Diagnoses Diagnosis Type 2 diabetes mellitus without complication, without long-term current use of insulin documented in this encounter Care Teams Funeral Professional Relationship Specialty Start Date End Date Franny Davison MD [address] [place] [address] PCP - General 05/13/10 04/14/18 documented as of this encounter
--- OUTSIDE RECORDS SUMMARY | 2024-01-14 11:13 | XMS_ITS | Encounter Summary ---
Author Organization [facility] Address [facility] [place] [address] Care Team Providers Care Wind Turbine Controls Engineer Name Role Phone Franny Davison MD Primary Care Provider [phone] Reason for Visit * Reason Onset Date Comments Medication Refill 03/25/2016 Encounter Details Date Type Department Care Team (Late st Contact Info) Description 03/25/2016 Refill [place] [address] Luna Galvez MD [facility] [place] [address] Social History Tobacco Use Types Packs/Day Years [...] 4:00 PM EDT Office Visit Dermatology at [place] [address] [place] [address] Ed Geller MD 580 [facility] [place] [address] documented as of this encounter Visit Diagnoses Not on filedocumented in this encounter Care Teams Wind Turbine Controls Engineer Relationship Specialty Start Date End Date Franny Davison MD [address] [place] [address] PCP - General 05/13/10 04/14/18 documented as of this encounter
--- OUTSIDE RECORDS SUMMARY | 2024-01-14 11:13 | XMS_ITS | Encounter Summary ---
[place] [address] Care Team Providers Care Hand Heel Seat Fitter Name Role Phone Bryant Crain MD Primary Care Provider [phone] Reason for Visit * Diagnostic Test (Routine) - Closed Specialty Diagnoses / Procedures Referred By Charo daniel Referred To Contact Radiology Diagnoses Parkinson's disease Procedures NM Brain Imaging for Parkinsons Disease Zandra Paredes MD [facility] [address] [place] [address] [place] [address] Referral ID Status Reason Start Date Expiration Date V isits Requested Visits Authorized [id number] Closed Specialty Service Requested 08/07/2021 02/04/2023 1 1 Encounter Details Date Type Department Care Team (Late st Contact Info) Description 10/21/2021 8:52 AM EDT - 10/21/2021 12:58 PM EDT Hospital En[place] [address] Zandra Paredes MD [facility] [address] [place], [place] [address] Discharge Disposition: Home Social History Tobacco Use [...] 4:00 PM EDT Office Visit Dermatology at [place] [address] [place] [address] Ed Geller MD [address] [facility] [address] DERMATOLOGY [place], [place] [phone] documented as of this encounter Procedures Procedure [...] Arm documented in this encounter Care Teams Hand Heel Seat Fitter Relationship Specialty Start Date End Date Bryant Crain MD [address] [place] [address] PCP - General Internal Medicine 04/15/18 documented as of this encounter
--- OUTSIDE RECORDS SUMMARY | 2024-01-14 11:13 | XMS_ITS | Encounter Summary ---
[place] [address] Care Team Providers Care Job Order Clerk Name Role Phone Franny Davison MD Primary Care Provider [phone] Reason for Visit * Reason Onset Date Comments Medication Refill 03/09/2016 Encounter Details Date Type Department Care Team (Late Contact Info) Description 03/09/2016 Refill Endocr[place] [phone] Vashti Avila, RN Social History Tobacco Use [...] 4:00 PM EDT Office Visit Dermatology at [place] [address] [facility] [place] [address] Ed Geller MD 580 [facility] [place] [address] documented as of this encounter Visit Diagnoses Not on filedocumented in this encounter Care Teams Job Order Clerk Relationship Specialty Start Date End Date Franny Davison MD [address] [place] [address] PCP - General 05/13/10 04/14/18 documented as of this encounter
--- OUTSIDE RECORDS SUMMARY | 2024-01-14 11:13 | XMS_ITS | Encounter Summary ---
Author Organization [place] [address] Care Team Providers Care Pattern And Chain Maker Name Role Phone Bryant Crain MD Primary Care Provider Reason for Referral * Diagnostic Test (Routine) - Closed Specialty Diagnoses / Procedures Referred By Contac t Referred To Contact Radiology Diagnoses Parkinson's disease Procedures NM Brain Imaging for Parkinsons Disease Zandra Paredes MD [facility] [address] [place] [address] [place] [address] Referral ID Status Reason Start Date Expiration Date V isits Requested Visits Authorized [id number] Closed Specialty Service Requested 08/07/2021 02/04/2023 1 1 Reason for Visit * Diagnostic Test (Routine) - Closed Specialty Diagnoses / Procedures Referred By Contac t Referred To Contact Radiology Diagnoses Parkinson's disease Procedures NM Brain Imaging for Parkinsons Disease Zandra Paredes MD [facility] [address] [place] [address] [place] [address] Referral ID Status Reason Start Date Expiration Date V isits Requested Visits Authorized [id number] Closed Specialty Service Requested 08/07/2021 02/04/2023 1 1 Encounter Details Date Type Department Care Team (Late st Contact Info) Description 10/21/2021 8:50 AM EDT - 10/21/2021 8:51 AM EDT Hospital Encounter [place] [address] Zandra Paredes MD [facility] [address] [address] Parkinson's disease Discharge Disposition: Home Social History [...] 3 01/12/2017 UNIFINE PENTIPS 32 gauge x 32 Needle Inject 1 each subcutaneously 2 times [...] 4:00 PM EDT Office Visit Dermatology at [place] [address] [facility] [place] [address] Ed Geller MD [address] [facility] [place] [address] documented as of this encounter Procedures Procedure [...] who have questions please contact the health complex care nurse practitioner that requested your imaging first. ? Electronically signed by: Oneal Barroso MD, [facility] ([phone]), at 10/22/2021 3:27 PM Narrative 10/22/2021 3:27 [...] patients who have questions please contactthe health complex care nurse practitioner that requested your imaging first. Electronically signed by: Oneal Barroso MD, [facility]([phone]), at 10/22/2021 3:27 PM Zandra Paredes MD [...] mLs documented in this encounter Care Teams Pattern And Chain Maker Relationship Specialty Start Date End Date Bryant Crain MD [address] [place] [address] PCP - General Internal Medicine 04/15/18 documented as of this encounter
--- OUTSIDE RECORDS SUMMARY | 2024-01-14 11:13 | XMS_ITS | Encounter Summary ---
Author Organization [facility] Address [facility] [place] [address] Care Team Providers Care Annual Giving Manager Name Role Phone Franny Davison MD Primary Care Provider [phone] Reason for Visit * Reason Comments Diabetes Encounter Details Date Type Department Care Team (Late st Contact Info) Description 01/12/2017 3:00 PM EDT Office Visit [place] [address] Shikha Poole CASTABLES WORKER [facility] [place] [address] Type 2 diabetes mellitus without complication, without [...] 4:00 PM EDT Office Visit Dermatology at [place] [address] [place] [address] Ed Geller MD [address] [facility] [address] DERMATOLOGY [place], [place] [phone] documented as of this encounter Results * [...] [facility] U Creatinine 96 mg/dL [facility] Urine specimen (specimen) 01/12/2017 2:17 PM EDT 01/12/2017 2:23 PM EDT Narrative Resulting Agency Comment Spec In Lab Shikha Poole APRN URINE ORDERABLES [facility] [place] [address] * LDL Cholesterol, Direct (01/12/2017 2:17 PM EDT) LDL Chol Direct 142 <=190 mg/dL [facility] Blood specimen (specimen) 01/12/2017 2:17 PM EDT 01/12/2017 2:22 PM EDT Narrative Resulting Agency Comment Spec In Lab Shikha Brashera CASTABLES WORKER CHEMISTRY ORDERABLE S Performing Organization Address City/[facility]/ZIP Co de Phone Number [facility] [place] [address] * (ABNORMAL) HDL/Cholesterol Profile (01/12/2017 2:17 PM [...] greater than or equal to 190 mg/dL. http://The Exchange.com/JVP-XNW-Nntoxnhqg Measure LDL if Total Cholesterol minus HDL Cholesterol is greater than 220 mg/dL. Adults aged 40-75 with LDL 70-189 mg/dL should have their 10 year ASCVD risk estimated with the ACC/AHA ASCVD risk engineering research manager http://tools.acc.org/UPICC-Aetb-Dfgaceuur/ Statin should be discussed if risk greater [...] Agency Comment Spec In Lab Shikha Poole CASTABLES WORKER CHEMISTRY ORDERABLE S Performing Organization Address City/[facility]/ZIP Co de Phone Number [facility] [place] [address] * (ABNORMAL) Hemoglobin A1c (01/12/2017 2:17 PM [...] Mellitus, Diabetes Care 2013; 36: Suppl. 1, S67-51 Est Avg Gluc 166 mg/dL [facility] Comment: eAG equivalents for HbA1c [...] into estimated average glucose values. ??Diabetes Care 2008:31(8):9508-8358. Blood specimen (specimen) 01/12/2017 2:17 PM EDT 01/12/2017 2:22 PM EDT Narrative Resulting Agency Comment Spec In Lab Shikha Poole APRN CHEMISTRY ORDERABLE S [facility] [place] [address] * (ABNORMAL) Basic Metabolic Panel (non-fasting) (01/12/2017 [...] intervals supplied above were not validated at [facility]. Results from pediatric patients should be interpreted [...] [facility] Estimated GFR >60 >=60 [facility] Comment: This estimated GFR (eGFR) [...] the following links into your internet browser. [email or web address] [email or web address] Blood specimen (specimen) 01/12/2017 2:17 PM EDT 01/12/2017 2:22 PM EDT Narrative Resulting Agency Comment Spec In Lab Shikha Michelle Juliustayflorina CASTABLES WORKER CHEMISTRY ORDERABLE S [facility] [place] [address] documented in this encounter Visit Diagnoses Diagnosis Type 2 diabetes mellitus without complication, without long-term current use of insulin documented in this encounter Care Teams Annual Giving Manager Relationship Specialty Start Date End Date Franny Davison MD [address] [place] [address] PCP - General 05/13/10 04/14/18 documented as of this encounter
--- OUTSIDE RECORDS SUMMARY | 2024-01-14 11:13 | XMS_ITS | Encounter Summary ---
[place] [address] Care Team Providers Care Gift Manager Name Role Phone Bryant Crain MD Primary Care Provider [phone] Reason for Visit * Diagnostic Test (Routine) - Closed Specialty Diagnoses / Procedures Referred By Charo daniel Referred To Contact Radiology Diagnoses Parkinson's disease Procedures NM Brain Imaging for Parkinsons Disease Zandra Paredes MD [facility] [address] [place] [address] [place] [address] Referral ID Status Reason Start Date Expiration Date V isits Requested Visits Authorized [id number] Closed Specialty Service Requested 08/07/2021 02/04/2023 1 1 Encounter Details Date Type Department Care Team (Late st Contact Info) Description 10/21/2021 12:59 PM EDT - 10/21/2021 11:59 PM EDT Hospital Encounter [place] [address] [facility] [address] [place], [place] [address] Discharge Disposition: Home Social History Tobacco Use [...] 4:00 PM EDT Office Visit Dermatology at [place] [address] [place] [address] Ed Geller MD [address] [facility] DERMATOLOGY [place], [place] [address] documented as of this encounter Procedures Procedure [...] on filedocumented in this encounter Care Teams Gift Manager Relationship Specialty Start Date End Date Bryant Crain MD [address] [place] [address] PCP - General Internal Medicine 04/15/18 documented as of this encounter
--- OUTSIDE RECORDS SUMMARY | 2024-01-14 11:13 | XMS_ITS | Encounter Summary ---
Author Organization [facility] [place] [address] Care Team Providers Care Tax Professional Name Role Phone Franny Davison MD Primary Care Provider [phone] Reason for Visit * Reason Comments Follow-up Encounter Details Date Type Department Care Team (Late st Contact Info) Description 04/19/2015 1:00 PM EDT Office Visit Dermatology at [address] [address] Ed Geller MD [address] [facility] DERMATOLOGY [place], [place] [phone] [place] (actinic keratosis) Social History Tobacco Use [...] 4:00 PM EDT Office Visit Dermatology at [address] [address] Ed Geller MD [address] [place] [address] [place] [address] documented as of this encounter Visit Diagnoses Diagnosis AK (actinic keratosis) Actinic keratosis documented in this encounter Care Teams Tax Professional Relationship Specialty Start Date End Date Franny Davison MD [address] [place] [address] PCP - General 05/13/10 04/14/18 documented as of this encounter
--- OUTSIDE RECORDS SUMMARY | 2024-01-14 11:13 | XMS_ITS | Encounter Summary ---
Author Organization [facility] [place] [address] Care Team Providers Care Sales Clerk Name Role Phone Franny Davison MD Primary Care Provider [phone] Encounter Details Date Type Department Care Team (Late st Contact Info) Description 05/22/2010 5:15 PM EST Office Visit Dermatology [address] [place] [address] [address] [place], [place] [address] Ed Geller MD 580 [facility] [place] [address] Social History Tobacco Use Types Packs/Day Years [...] 4:00 PM EDT Office Visit Dermatology at [place] [address] [place] [address] Ed Geller MD [address] [facility] [place] [address] documented as of this encounter Visit Diagnoses Not on filedocumented in this encounter Care Teams Sales Clerk Relationship Specialty Start Date End Date Franny Davison MD [address] [place], [place] [address] PCP - General 05/13/10 04/14/18 documented as of this encounter
--- OUTSIDE RECORDS SUMMARY | 2024-01-14 11:13 | XMS_ITS | Encounter Summary ---
Author Organization [facility] [place] [address] Care Team Providers Care Stranding Machine Operator Helper Name Role Phone Franny Davison MD Primary Care Provider Encounter Details Date Type Department Care Team (Late st Contact Info) Description 03/23/2016 [place] [address] Queta Arcos LPN Social History Tobacco Use [...] 4:00 PM EDT Office Visit Dermatology at [address] [facility] [place] [address] Ed Geller MD [address] [facility] [place] [address] documented as of this encounter Visit Diagnoses Not on filedocumented in this encounter Care Teams Stranding Machine Operator Helper Relationship Specialty Start Date End Date Franny Davison MD [address] [place] [address] PCP - General 05/13/10 04/14/18 documented as of this encounter
== END 2024-01-19 23:59 | disposition home or self-care (01) ==
LOC: CR 11:05
PROVIDERS: PCP Family Medicine; Visit Provider Internal Medicine Cardiovascular Disease
DX: I42.2 Other hypertrophic cardiomyopathy (principal)

== ENCOUNTER 2024-02-16 11:20 | Outpatient (RCR) | payer SELFPAY ==
[2024-01-20 00:34] VITALS: BP 151/75; PULSE 73
[2024-01-21 11:11] VITALS: BP 132/58; PULSE 73
[2024-01-26 11:24] VITALS: BP 122/71; PULSE 71
[2024-02-09 12:23] VITALS: BP 123/67; PULSE 56
[2024-02-11 11:10] VITALS: BP 129/79; PULSE 74; O2SAT 96
[2024-02-16 11:24] VITALS: BP 137/69; PULSE 75
== END 2024-02-19 23:59 | disposition home or self-care (01) ==
LOC: CR 11:20
PROVIDERS: PCP Family Medicine; Visit Provider Internal Medicine Cardiovascular Disease
DX: R69 Illness, unspecified (principal)

== ENCOUNTER → 2024-03-07 14:34 | Outpatient (BNVA) | payer MEDICARE, SELFPAY | PROVIDERS: PCP Family Medicine; Visit Provider Nurse Practitioner Gerontology | DX: N39.0 Urinary tract infection, site not specified (principal) | CPT/HCPCS: 51798; 99213 ==

== ENCOUNTER 2024-03-10 10:55 | Outpatient (RCR) | payer SELFPAY ==
[2024-02-20 00:13] VITALS: BP 151/75; PULSE 73
[2024-02-25 11:04] VITALS: BP 130/71; PULSE 80; O2SAT 95
[2024-03-01 10:59] VITALS: BP 144/75; PULSE 76; O2SAT 96
[2024-03-08 12:53] VITALS: BP 144/71; PULSE 79
[2024-03-10 11:06] VITALS: BP 146/68; PULSE 75
== END 2024-03-20 23:59 | disposition home or self-care (01) ==
LOC: CR 10:55
PROVIDERS: PCP Family Medicine; Visit Provider Internal Medicine Cardiovascular Disease
DX: R69 Illness, unspecified (principal)

== ENCOUNTER 2024-04-14 01:51 | Outpatient (CLI) | payer MEDICARE, SELFPAY ==
[2024-04-14 13:12] LABS: Anion Gap 7.7 mmol/L (3-11); BUN 16 mg/dL (7-18); CO2 27.3 mmol/L (21.0-32.0); CREATININE 1.1 mg/dL (0.55-1.02); Calcium 10.6 mg/dL (8.5-10.1); Chloride 107 mmol/L (98-107); Estimated GFR 53.72 (mL/min/1.73m2); Glucose 117 mg/dL (74-106); Potassium 4.4 mmol/L (3.5-5.1); Sodium 142 mmol/L (136-145); TSH (W/Ref FT4) 2.13 uIU/mL (0.36-3.74)
== END 2024-04-14 01:52 | disposition home or self-care (01) ==
LOC: LBO 01:51
PROVIDERS: PCP Family Medicine; Visit Provider Family Medicine
DX: R94.6 Abnormal results of thyroid function studies (principal); I10 Essential (primary) hypertension
CPT/HCPCS: 36415; 80048; 84443

== ENCOUNTER 2024-04-19 11:11 | Outpatient (RCR) | payer MEDICARE, SELFPAY ==
[2024-04-19 11:26] VITALS: BP 130/76; PULSE 83
== END 2024-04-20 23:59 | disposition home or self-care (01) ==
LOC: CR 11:11
PROVIDERS: PCP Family Medicine; Visit Provider Internal Medicine Cardiovascular Disease

== ENCOUNTER 2024-05-10 11:01 | Outpatient (RCR) | payer SELFPAY ==
[2024-04-26 12:53] VITALS: BP 143/74; PULSE 87
[2024-05-03 11:23] VITALS: BP 124/63; PULSE 77; O2SAT 95
[2024-05-10 11:32] VITALS: BP 151/69; PULSE 87
== END 2024-05-20 23:59 | disposition home or self-care (01) ==
LOC: CR 11:01
PROVIDERS: PCP Family Medicine; Visit Provider Internal Medicine Cardiovascular Disease
DX: R69 Illness, unspecified (principal)

== ENCOUNTER 2024-06-09 01:06 | Outpatient (CLI) | payer MEDICARE, SELFPAY ==
[2024-06-09 16:49] LABS: Abs Immature Grans 0.04 10^3/uL (0.0-0.06); Absolute Basophil Count 0.06 10^3/uL (0.0-0.2); Absolute Eosinophil Count 0.14 10^3/uL (0.0-0.7); Absolute Monocyte Count 0.59 10^3/uL (0.1-0.8); Absolute Neutrophil Count 4.99 10^3/uL (1.2-6.7); Basophils % 0.7 %; Eosinophils % 1.6 %; HCT 39.4 % (36.0-46.0); HGB 12.9 g/dL (11.2-15.7); Immature Grans % 0.4 %; Lymphocytes % 34.8 %; MCHC 32.7 % (32.0-36.0); MCV 86 fL (80-95); MPV 10.3 fL (8.0-11.0); Monocytes % 6.6 %; Neutrophils % 55.9 %; Platelet Count 334 10^3/uL (130-400); RBC 4.61 10^6/uL (3.93-5.22); RDW 13.8 % (11.7-14.6); RDW-SD 43.3 fL; WBC 8.92 10^3/uL (4.4-10.8)
[2024-06-09 17:54] LABS: ALT 24 U/L (14-59); AST 17 U/L (15-37); Albumin 3.7 g/dL (3.4-5.0); Alkaline Phosphatase 62 U/L (46-116); Anion Gap 9.9 mmol/L (3-11); BUN 15 mg/dL (7-18); Bilirubin, Total 0.33 mg/dL (0.2-1.0); CO2 26.1 mmol/L (21.0-32.0); CREATININE 1.2 mg/dL (0.55-1.02); Calcium 9.5 mg/dL (8.5-10.1); Chloride 107 mmol/L (98-107); Estimated GFR 48.09 (mL/min/1.73m2); Glucose 153 mg/dL (74-106); Magnesium 1.6 mg/dL (1.8-2.4); Potassium 4.2 mmol/L (3.5-5.1); Sodium 143 mmol/L (136-145); TSH (W/Ref FT4) 3.21 uIU/mL (0.36-3.74); Total Protein 7.3 g/dL (6.4-8.2)
[2024-06-09 17:57] LABS: C-Reactive Protein < 0.50 mg/dL (<or=0.5)
[2024-06-09 18:11] LABS: Creatine Kinase 85 U/L (26-192)
[2024-06-12 15:49] LABS: Albumin 61.4 % (55.8-66.1); Albumin g/dL 4.1 g/dL (3.6-5.2); Comment (See Note); Total Protein 6.7 g/dL (6.3-8.2)
[2024-06-12 16:38] LABS: Immunotyping, Serum (See Note)
== END 2024-06-09 01:07 | disposition home or self-care (01) ==
LOC: LBO 01:06
PROVIDERS: PCP Family Medicine; Visit Provider Family Medicine
DX: M79.2 Neuralgia and neuritis, unspecified
CPT/HCPCS: 36415; 80053; 82550; 83735; 84155; 84165; 84439; 84443; 85025; 86140; 86320

== ENCOUNTER 2024-07-07 21:38 | Outpatient (REF) | payer MEDICARE, SELFPAY | END 2024-07-07 21:39 | disposition home or self-care (01) | LOC: NCHCN 21:38 | PROVIDERS: PCP Family Medicine; Visit Provider Family Medicine | DX: M62.81 Muscle weakness (generalized) (principal) | CPT/HCPCS: 87086 ==

== ENCOUNTER 2024-07-11 02:39 | Outpatient (CLI) | payer MEDICARE, SELFPAY ==
[2024-07-11 12:52] LABS: Abs Immature Grans 0.03 10^3/uL (0.0-0.06); Absolute Basophil Count 0.08 10^3/uL (0.0-0.2); Absolute Eosinophil Count 0.15 10^3/uL (0.0-0.7); Absolute Lymphocyte Count 2.87 10^3/uL (1.2-3.4); Absolute Monocyte Count 0.55 10^3/uL (0.1-0.8); Absolute Neutrophil Count 4.79 10^3/uL (1.2-6.7); Basophils % 0.9 %; Eosinophils % 1.8 %; HCT 41.2 % (36.0-46.0); HGB 13.1 g/dL (11.2-15.7); Immature Grans % 0.4 %; Lymphocytes % 33.9 %; MCH 27.2 pg (27.0-33.0); MCHC 31.8 % (32.0-36.0); MCV 86 fL (80-95); MPV 10.4 fL (8.0-11.0); Monocytes % 6.5 %; Neutrophils % 56.5 %; Platelet Count 327 10^3/uL (130-400); RBC 4.82 10^6/uL (3.93-5.22); RDW-SD 43.3 fL; WBC 8.47 10^3/uL (4.4-10.8)
== END 2024-07-11 02:40 | disposition home or self-care (01) ==
PROVIDERS: PCP Family Medicine; Visit Provider Family Medicine
DX: M62.81 Muscle weakness (generalized) (principal)
CPT/HCPCS: 36415; 85025

== ENCOUNTER 2024-07-21 11:00 | Outpatient (RCR) | payer SELFPAY ==
[2024-05-21 00:14] VITALS: BP 151/69; PULSE 87
[2024-06-28 12:34] VITALS: BP 151/79; PULSE 73
[2024-07-14 11:10] VITALS: BP 146/75; PULSE 78; O2SAT 78
[2024-07-19 11:33] VITALS: BP 147/58; PULSE 73
[2024-07-21 11:29] VITALS: BP 150/78; PULSE 87
== END 2024-07-21 23:59 | disposition home or self-care (01) ==
LOC: CR 11:00
PROVIDERS: PCP Family Medicine; Visit Provider Internal Medicine Cardiovascular Disease
DX: R69 Illness, unspecified (principal)

== ENCOUNTER 2024-11-07 14:35 | Outpatient (REF) | payer MEDICARE, SELFPAY ==
[2024-11-07 22:15] LABS: Anion Gap 13.6 mmol/L (3-11); BUN 15 mg/dL (7-18); CO2 21.4 mmol/L (21.0-32.0); CREATININE 1.1 mg/dL (0.55-1.02); Calcium 10.5 mg/dL (8.5-10.1); Chloride 105 mmol/L (98-107); Estimated GFR 53.39 (mL/min/1.73m2); Glucose 218 mg/dL (74-106); Magnesium 1.5 mg/dL (1.8-2.4); Potassium 4.8 mmol/L (3.5-5.1); Sodium 140 mmol/L (136-145)
[2024-11-09 11:38] LABS: Hepatitis C Ab w Rflx HCV PCR Negative (Negative)
[2024-11-09 11:59] LABS: Albumin 59.8 % (55.8-66.1); Albumin g/dL 4.1 g/dL (3.6-5.2); Total Protein 6.8 g/dL (6.3-8.2)
== END 2024-11-07 14:36 | disposition home or self-care (01) ==
LOC: NCHCN 14:35
PROVIDERS: PCP Family Medicine; Visit Provider Family Medicine
DX: Z11.59 Encounter for screening for other viral diseases (principal); N18.32 Chronic kidney disease, stage 3b
CPT/HCPCS: 80048; 86803; 83735; 84165

== ENCOUNTER 2025-03-24 15:44 | Observation (INO) | payer MEDICARE, SELFPAY ==
[2025-03-24] VITALS (34 sets, daily range): BP systolic 131–158; BP diastolic 56–84; PULSE 59–94; RESP 15–26; TEMP 36.6; O2SAT 91–98
--- NOTE | 2025-03-24 15:30 | RT.EKG_ITS ---
APPROVED REPORT Exam: Resting ECG Reason for Exam: dizziness Patient Location: E HR:72 bpm ECG Measurements Heart Rate 72 AXIS AR 170 P 77 QRSd 135 QRS 24 QT 445 T 186 QTc 488 Conclusion Atrial-sensed ventricular-paced rhythm...ventricular pacing tracks p-waves. No STEMI.
--- NOTE | 2025-03-24 15:54 | DI.CT_ITS ---
Exam(s) CT HEAD WO EXAM: CT HEAD WO CLINICAL HISTORY: fall, AMS. TECHNIQUE: Imaging Protocol: Axial computed tomography images with coronal and sagittal reformatted images were created and reviewed COMPARISON: CT CT BRAIN NECK CTA from 11/28/2023 FINDINGS: There are no skull fractures. There is no fluid in the visualized paranasal sinuses. There is no evidence of intracranial hemorrhage, mass effect, or shift of midline structures. There are no extra-axial fluid collections. The ventricles are not enlarged or shifted and there is no blood within the ventricular system nor within the basal cisterns. There is again noted symmetrical bilateral periventricular hypodensity consistent chronic small vessel disease. However, on the present study there is a small nonhemorrhagic lacunar infarct at the junction of the posterior limb of left internal capsule and anterior aspect of the left thalamus, not previously present. This lacune is nonhemorrhagic. IMPRESSION: Suspect new nonhemorrhagic lacunar infarct on the left side at the junction of the anterior thalamus and posterior limb of the left internal capsule. This was not evident on the most recent CT scan of November 2023. Recommend follow-up MRI with diffusion imaging. Report called by myself to ER physician 03/24/2025 at 4:35 p.m. RADIATION DOSE DELIVERED: 813.52mGy.cm Total DLP DATA REPOSITORY: All CT scans at this facility are submitted to the National Radiology Data Registry (NRDR) Dose Index Registry (DIR) with the [employer] (ACR). RADIATION OPTIMIZATION: All CT scans at this facility use at least one of these dose optimization techniques: automated exposure control; mA and/or kV adjustment per patient size (includes targeted exams where dose is matched to clinical indication); or iterative reconstruction.
[2025-03-24 16:14] LABS: HCT 34.8 % (36.0-46.0); HGB 11.2 g/dL (11.2-15.7); MCH 25.7 pg (27.0-33.0); MCHC 32.2 % (32.0-36.0); MCV 80 fL (80-95); MPV 10.3 fL (8.0-11.0); Platelet Count 337 10^3/uL (130-400); RBC 4.35 10^6/uL (3.93-5.22); RDW 15.6 % (11.7-14.6); RDW-SD 45.2 fL; WBC 8.19 10^3/uL (4.4-10.8)
--- NOTE | 2025-03-24 16:15 | W.ED.GENAD ---
Discharge Plan Disposition Patient Disposition: Admit to [facility] Discharge Details Clinical Impression: Altered mental status, Ventricular tachycardia, Dehydration Admit Date/Time: 03/24/25 20:55 Admit Provider: Lefty Gutiérrez Attending Provider: Lefty Gutiérrez Primary Care Provider: Elba Jett ED Provider: Rajinder Parish Discharge Data Discharge Date/Time-TO BE ENTERED AT DEPARTURE: 03/24/25 21:26 HPI General Date/Time Provider Initiated Documentation: 03/24/25 15:54. HPI Narrative: This is a 74-year-old female presenting to the emergency department with a chief complaint of fall. History is somewhat unclear as the patient has told different things to different people. Patient's states that she was inside while he was working outside. He went in to check on her and she was not there. He then noted she was outside on the ground. Details of the fall are unclear. Patient states that she was inside making dinner and got lightheaded. is quite clear that she fell outside not inside. She has apparently been ill recently with an upset stomach and nausea. She denies pain. No shortness of breath. No fevers. No recent injuries. She had some knee pain after the fall and required a little help getting up. She was able to ambulate after that. No chest pain or palpitations. No changes in medications. No headache. Related Data Home Medications ?Medication ?Instructions ?Recorded ?Confirmed acetaminophen 325 mg tablet 650 mg (2 x 325 mg) PO Q4H PRN PRN 04/30/17 03/24/25 (Tylenol) fever,pain apixaban 5 mg tablet (Eliquis) 5 mg PO BID #180 tabs 09/01/17 03/24/25 cetirizine 10 mg tablet (Zyrtec) 10 mg PO DAILY 10/25/19 03/24/25 metformin 750 mg tablet,extended 1,500 mg PO DAILY 10/25/19 03/24/25 release 24 hr magnesium oxide 400 mg (241.3 mg 400 mg PO DAILY 12/12/20 03/24/25 magnesium) tablet pen needle, diabetic ##1 12/12/20 03/24/25 insulin lispro 100 unit/mL See Rx Instructions subcut 08/04/21 03/24/25 subcutaneous pen (Humalog KwikPen DIRECTED (U-100) Insulin) semaglutide 2 mg/dose (8 mg/3 mL) 2 mg subcut QWEEK 11/02/22 03/24/25 subcutaneous pen injector (Ozempic) metoprolol tartrate 25 mg tablet 25 mg PO DAILY 12/16/22 03/24/25 pantoprazole 40 mg tablet,delayed 40 mg PO DAILY 12/16/22 03/24/25 release spironolactone 25 mg tablet 25 mg PO DAILY 12/16/22 03/24/25 gabapentin 300 mg capsule 600 mg (2 x 300 mg) PO BID #450 11/25/23 03/24/25 caps furosemide 40 mg tablet 40 mg PO DAILY PRN 11/08/24 03/24/25 insulin degludec 100 unit/mL (3 38 unit subcut QHS 11/08/24 03/24/25 mL) subcutaneous pen (Tresiba FlexTouch U-100 insulin) losartan 25 mg tablet 25 mg PO DAILY 11/08/24 03/24/25 vitamin B complex 1 tab PO DAILY 11/08/24 03/24/25 evolocumab 140 mg/mL subcutaneous 140 mg subcut .every other week 03/24/25 03/24/25 pen injector (Niru Michaelick) fluorouracil 5 % topical cream 1 applic topical BID 03/24/25 03/24/25 Previous Rx's ?Medication ?Instructions ?Recorded acetaminophen 325 mg tablet 650 mg (2 x 325 mg) PO Q4H PRN PRN 04/30/17 (Tylenol) fever,pain apixaban 5 mg tablet (Eliquis) 5 mg PO BID #180 tabs 09/01/17 gabapentin 300 mg capsule 600 mg (2 x 300 mg) PO BID #450 11/25/23 caps Allergies Allergy/AdvReac Type Severity Reaction Status Date / Time clopidogrel (From Plavix) Allergy Intermediate Skin Rash Verified 03/24/25 15:57 atenolol Allergy Mild Other (See Verified 03/24/25 15:57 Comment) ezetimibe (From Zetia) Allergy Mild Other (See Verified 03/24/25 15:57 Comment) hydroxychloroquine (From Allergy Mild Other (See Verified 03/24/25 15:57 Plaquenil) Comment) lisinopril Allergy Mild Other (See Verified 03/24/25 15:57 Comment) losartan (From Cozaar) Allergy Mild Other (See Verified 03/24/25 15:57 Comment) aspirin Allergy GI Bleeding Verified 03/24/25 15:57 cephalexin Allergy Rash Verified 03/24/25 15:57 ciprofloxacin Allergy Other (See Verified 03/24/25 15:57 Comment) empagliflozin (From Allergy Other (See Verified 03/24/25 15:57 Jardiance) Comment) Iodinated Contrast Media Allergy Unknown Verified 03/24/25 15:57 Bupufgy-HGK-RrC Reductase Allergy Other (See Verified 03/24/25 15:57 Inhibitor (Lbpqthh-Kdh-Atm Comment) Reductase Inhibitor) oxycodone HCl (From Percocet) AdvReac CRAZY Verified 03/24/25 15:57 General Stated Complaint: Dizzy/Sync KATHLEEN: 3 Review of Systems Unobtainable due to mental condition (Review of systems this felt to be unreliable secondary to confusion.) Exam Const General: no acute distress and well groomed HENMT Mouth: oral mucosae normal and moist mucous membranes Throat: posterior oropharynx normal Eyes Conjunctivae: conjunctivae normal Sclera: sclerae normal Neck Neck: full ROM and No JVD Resp Effort & Inspection: normal respiratory effort Auscultation: clear to auscultation bilaterally Cardio Rate: regular rate Rhythm: regular rhythm Heart Sounds: murmur systolic GI Palpation: soft and nontender Skin General skin exam: no rashes or lesions noted Neuro General: patient alert, patient oriented x3 and CN's II-XI intact bilaterally Other: Patient is intermittently confused. She will answer most questions clearly but will occasionally make statements that contradict previous statements or statements completely out of context. Extrem General: normal to inspection and full ROM Psych Appearance: grossly normal Mental Status: mental status grossly normal Speech and Movement: speech and movement normal Affect: normal affect Thought Process: normal Course Vital Signs Vital signs: Vital Signs Pulse 75 03/24/25 15:41 Respiratory Rate 16 03/24/25 15:41 Blood Pressure 131/59 L 03/24/25 15:41 Pulse Oximetry 91 L 03/24/25 15:41 Pulse 75 03/24/25 15:41 Respiratory Rate 16 03/24/25 15:41 Blood Pressure 131/59 L 03/24/25 15:41 Pulse Oximetry 91 L 03/24/25 15:41 Oxygen Delivery Method Room Air 03/24/25 15:41 Oxygen Flow Rate 0 03/24/25 15:41 Lab/Test Results Lab/Test Results: Laboratory Tests Range/Units 03/24/25 03/24/25 15:54 16:00 WBC (4.4-10.8) 10^3/uL 8.19 RBC (3.93-5.22) 10^6/uL 4.35 Hgb (11.2-15.7) g/dL 11.2 Hct (36.0-46.0) % 34.8 L MCV (80-95) fL 80 MCH (27.0-33.0) pg 25.7 L MCHC (32.0-36.0) % 32.2 RDW (11.7-14.6) % 15.6 H Plt Count (130-400) 10^3/uL 337 MPV (8.0-11.0) fL 10.3 VBG Lactate (<or=2.0) mmol/L 2.8 H* Sodium Cancelled Potassium Cancelled Chloride Cancelled Carbon Dioxide Cancelled Anion Gap Cancelled BUN Cancelled Creatinine Cancelled Est GFR (CKD-EPI 2020) Cancelled Glucose Cancelled Calcium Cancelled Medical Decision Making This is a 74-year-old female presenting to the emergency department with an unwitnessed fall. This is in the setting of recent stomach upset and some confusion according to her . The patient was seen and examined by me. Old charts were reviewed and nursing notes were reviewed. Most recent documentation surrounds a great deal of PT work surrounding her gait and mobility. This may be contributory to her fall. EKG reviewed by me shows an atrial sensed, ventricular paced rhythm. Rate of 72. MO is 170. QRS is 135. No STEMI. Patient was maintained on a vine fruit farming supervisor with IV access. While here she had a 10 beat run of V. tach at about 4 PM. This resolved spontaneously. Patient has an AICD but it did not fire. Troponin was noted to be elevated. Case was discussed with cardiology. Given the fact that the patient is not having chest pain, does not have any findings on the EKG, is anticoagulated, and has an AICD they did not feel that acute intervention was indicated and did not recommend transfer or additional intervention. This is in the setting of a moderately elevated troponin ranging from the 150s to 170s. CT head shows a subacute lacunar infarct, new versus CT 1 year ago. Secondary to the fact that she fell and I spoke with cardiology at [facility], they requested that trauma be involved. CT of the C-spine and chest x-ray were added at the request. This did not reveal any acute abnormality. X-ray of the knee showed DJD and perhaps a very small effusion but no acute abnormality. PFSH All Active Problems (Updated 03/24/25 @ 22:03 by Rajinder Parish MD) Dehydration (Acute) Ventricular tachycardia (Chronic) Altered mental status (Acute) Aortic stenosis (Chronic) Lacunar infarction (Acute) Fall (Acute) History of squamous cell carcinoma (Acute) Screening for malignant neoplasm of skin (Acute) Hyperlipidemia (Acute 02/01/13) Diabetes mellitus (Chronic 02/01/13) Cerebrovascular accident (CVA) due to embolism of left middle cerebral artery (Acute 06/08/17) Distal paresthesia (Acute) Dizziness (Acute) Imbalance (Acute) Paroxysmal atrial fibrillation (Chronic) Elevated troponin (Acute) Bradykinesia (Acute) Neuropathic pain (Acute) Diabetes mellitus type 2, uncontrolled, with complications (Chronic) Hyperlipidemia associated with type 2 diabetes mellitus (Acute) Hypertension associated with diabetes (Chronic) Medical History Other amnesia Pain in right lower leg ESE (acute kidney injury) Recurrent UTI (urinary tract infection) Squamous cell skin cancer Pelvic pain in female Actinic keratosis Abnormal movements Tremor Sciatica Cervical radiculopathy Memory problem Sinus pause Mobitz type 1 second degree AV block Syncope Acute GI bleeding Acute blood loss anemia NSTEMI (non-ST elevated myocardial infarction) Hyperlipidemia Acne rosacea Hypertension Type 2 diabetes mellitus Allergic rhinitis Intermittent asthma Adequate 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 on anticoagulant therapy Myalgia Diarrhea Overflow incontinence Hypercalcemia H/O urinary frequency Urinary incontinence Carcinoma of skin Reactive depression Adjustment disorder with mixed anxiety and depressed mood Diabetic peripheral neuropathy Microalbuminuria Hyperparathyroidism Atypical chest pain History of CVA (cerebrovascular accident) Granulomatous disorder of the skin and subcutaneous tissue, unspecified Mixed stress and urge urinary incontinence History of kidney stones CVA (cerebral vascular accident) Peripheral neuropathy Asthma Urge urinary incontinence Weakness of foot Allergic to IV contrast Left acute arterial ischemic stroke, MCA (middle cerebral artery) Surgical History Hx of colonoscopy bladder repair,open Abdominal hysterectomy Family History Other Diabetes Hyperlipidemia Hypertension Social History Smoking/Tobacco Use Status: Never Smoking risk assessment performed?: Yes Alcohol Intake: never Drug use: Never Substance use type: does not use Household members: spouse Housing: house Number of Children: 3 number of grandchildren: 7 Pets and animals: No Current gender identity: female What is your relationship status?: Panel score (0-1 are the most socially isolated patients): 1 What type of physical activity do you participate in: swimming Seatbelt use: always Do you feel safe at home: Yes Do you feel safe in your relationship?: Yes Additional Social history: Lives in [place] with her . Grew up in [place].
[2025-03-24 16:33] LABS: ALT 27 U/L (14-59); AST 23 U/L (15-37); Albumin 3.6 g/dL (3.4-5.0); Alkaline Phosphatase 48 U/L (46-116); Anion Gap 13.4 mmol/L (3-11); BUN 21 mg/dL (7-18); Bilirubin, Total 0.5 mg/dL (0.2-1.0); CO2 23.6 mmol/L (21.0-32.0); Calcium 9.9 mg/dL (8.5-10.1); Chloride 104 mmol/L (98-107); Estimated GFR 36.80 (mL/min/1.73m2); Glucose 192 mg/dL (74-106); Potassium 4.1 mmol/L (3.5-5.1); Sodium 141 mmol/L (136-145); Total Protein 6.9 g/dL (6.4-8.2)
[2025-03-24 16:44] LABS: Troponin I 163 ng/L (<or=51)
[2025-03-24] MEDS: Normal Saline 500 ML IV (17:23)
[2025-03-24 17:39] LABS: Troponin I 170 ng/L (<or=51)
--- NOTE | 2025-03-24 18:00 | DI.CT_ITS ---
Exam(s) CT CERVICAL SPINE WO EXAM: CT CERVICAL SPINE WO CLINICAL HISTORY: fall. TECHNIQUE: Imaging Protocol: Axial computed tomography images with coronal and sagittal reformatted images were created and reviewed COMPARISON: No exams were available for comparison FINDINGS: CERVICAL SPINE: There is no evidence of acute fracture. No listhesis. No significant prevertebral soft tissue swelling. All the disc spaces exhibit preserved height. Multilevel facet arthropathy noted. This is more prominent on the right side. There is, however, no facet joint malalignment. No significant osseous lesions evident. IMPRESSION: Multilevel facet arthropathy. No fracture. No listhesis. No prominent disc space narrowing. RADIATION DOSE DELIVERED: 404.32mGy.cm Total DLP DATA REPOSITORY: All CT scans at this facility are submitted to the National Radiology Data Registry (NRDR) Dose Index Registry (DIR) with the [employer] ([employer]). RADIATION OPTIMIZATION: All CT scans at this facility use at least one of these dose optimization techniques: automated exposure control; mA and/or kV adjustment per patient size (includes targeted exams where dose is matched to clinical indication); or iterative reconstruction.
--- NOTE | 2025-03-24 18:00 | DI.RAD_ITS ---
Exam(s) XR KNEE RT 2V AP,LAT EXAM: XR KNEE RT 2V AP,LAT CLINICAL HISTORY: fall, knee pain. TECHNIQUE: 2D digital imaging was performed. COMPARISON: No exams were available for comparison FINDINGS: 3 views No evidence of acute fracture of the does appear to be a small-moderate size knee joint effusion. There are mild degenerative changes in the medial compartment. Lateral compartment appears unremarkable and there are minimal degenerative changes in the patellofemoral compartment Incidentally noted is a sclerotic non expansile bone lesion in the distal metaphysis of the femur which is probably an enchondroma IMPRESSION: Mild degenerative changes. Small joint effusion. Sclerotic medullary bone lesion in the distal femur which is probably an incidental enchondroma. DATA REPOSITORY: RADIATION DOSE DELIVERED:
--- NOTE | 2025-03-24 18:00 | DI.RAD_ITS ---
Exam(s) XR CHEST 2V PA LATERAL EXAM: XR CHEST 2V PA LATERAL CLINICAL HISTORY: trauma. TECHNIQUE: 2D digital imaging was performed. COMPARISON: CR,XR XR CHEST 1V IN DI DEPT from 11/28/2023 FINDINGS: 2 views: Left subclavian bipolar pacemaker with lead tips in right atrium and right ventricle again noted. Heart size remains upper normal. The mediastinum is not widened or shifted. Lungs are clear with no infiltrates nor pleural effusions. No evidence of pulmonary edema. IMPRESSION: No acute pulmonary findings.Cardiac pacemaker. No pulmonary edema nor pleural effusions. DATA REPOSITORY: RADIATION DOSE DELIVERED:
[2025-03-24 19:26] LABS: Troponin I 184 ng/L (<or=51)
[2025-03-24 19:51] LABS: Glucose Negative (Negative)
[2025-03-24 20:03] LABS: RBC 0-2 HPF (0-2); WBC 0-2 HPF (0-5)
[2025-03-24 20:04] LABS: C & S Indicated? No
--- NOTE | 2025-03-24 20:58 | W.PM.HP.N ---
Date of service: 03/24/25 Time of Service: 20:58 Assessment and Plan Assessment and plan (1) Fall: Status: Acute Assessment and plan: Multiple etiologies at play. Will keep on monitor overnight. MRI of next few days. Gentle hydration. Echo to evaluate murmur. Does not appear to be related to seizure. This could be due to dehydration versus CVA versus worsening aortic stenosis (2) Hyperlipidemia associated with type 2 diabetes mellitus: Status: Acute Assessment and plan: Continue with medical management. Check a lipid panel (3) Hypertension associated with diabetes: Status: Chronic Assessment and plan: Patient is on multiple medications including diuretics. She does have a history of LVH so fluid status is fairly tricky. Will continue to monitor (4) Paroxysmal atrial fibrillation: Status: Chronic Assessment and plan: Patient is status post pacemaker and is on Eliquis (5) Elevated troponin: Status: Acute Assessment and plan: In reviewing old labs she does have propensity to have mildly elevated troponins. Recheck in the AM. Does not appear to be ACS (6) Diabetes mellitus type 2, uncontrolled, with complications: Status: Chronic Assessment and plan: Continue with her home medications with the exception of stopping her metformin. Her creatinine level is currently 1.5 and with her other medications are not sure how much benefit this is adding versus it is possible side effect profile consider stopping it on discharge (7) Lacunar infarction: Status: Acute Assessment and plan: In reviewing Dr. Sanchez's read there as a mention of lacunar infarcts and recommended MRI so this is been ordered. (8) Aortic stenosis: Status: Chronic Assessment and plan: Patient does appear to have at least a 3 out of 6 systolic ejection murmur and this could be contributing to her weakness and falls. Echocardiogram is pending She is on Eliquis for DVT prophylaxis History of Present Illness History of Present Illness Chief Complaint: fall Narrative: This is a 74-year-old female with a known history of left ventricular cardiomyopathy as well as a AICD/permanent pacemaker for A-fib as well as bradycardia. Patient was found in the backyard by her and was not able to stand. He had to get help from neighbors to get around her feet. Ambulance was brought to [facility] and transported to the hospital for further evaluation and treatment. While she was in the ED, the patient was noted to have an elevated BUN to creatinine ratio, proteinuria, a CT brain which did show lacunar infarct but not known if this was acute versus subacute versus remote. The patient also had mildly elevated troponins. In reviewing old charts she has had elevated troponins in the past. Patient denies any chest pain or shortness of breath at this time denies any history of seizures denied any urinary or fecal incontinence. Patient does take Eliquis and in reviewing her chart she is allergic to Plavix. Patient's last echocardiogram was performed December 09 which was indicative of severe concentric LVH. Patient denies any dysuria or polyuria. Patient does mention a few episodes of vomiting over the last few days which is now resolved. Review of Systems All systems reviewed & are unremarkable except as noted in HPI and below PFSH All Active Problems (Updated 03/24/25 @ 21:04 by Lefty Gutiérrez MD) Aortic stenosis (Chronic) Lacunar infarction (Acute) Fall (Acute) History of squamous cell carcinoma (Acute) Screening for malignant neoplasm of skin (Acute) Hyperlipidemia (Acute 02/01/13) Diabetes mellitus (Chronic 02/01/13) Cerebrovascular accident (CVA) due to embolism of left middle cerebral artery (Acute 06/08/17) Distal paresthesia (Acute) Dizziness (Acute) Imbalance (Acute) Paroxysmal atrial fibrillation (Chronic) Elevated troponin (Acute) Bradykinesia (Acute) Neuropathic pain (Acute) Diabetes mellitus type 2, uncontrolled, with complications (Chronic) Hyperlipidemia associated with type 2 diabetes mellitus (Acute) Hypertension associated with diabetes (Chronic) Medical History Other amnesia Pain in right lower leg ESE (acute kidney injury) Recurrent UTI (urinary tract infection) Squamous cell skin cancer Pelvic pain in female Actinic keratosis Abnormal movements Tremor Sciatica Cervical radiculopathy Memory problem Sinus pause Mobitz type 1 second degree AV block Syncope Acute GI bleeding Acute blood loss anemia NSTEMI (non-ST elevated myocardial infarction) Hyperlipidemia Acne rosacea Hypertension Type 2 diabetes mellitus Allergic rhinitis Intermittent asthma Adequate 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 on anticoagulant therapy Myalgia Diarrhea Overflow incontinence Hypercalcemia H/O urinary frequency Urinary incontinence Carcinoma of skin Reactive depression Adjustment disorder with mixed anxiety and depressed mood Diabetic peripheral neuropathy Microalbuminuria Hyperparathyroidism Atypical chest pain History of CVA (cerebrovascular accident) Granulomatous disorder of the skin and subcutaneous tissue, unspecified Mixed stress and urge urinary incontinence History of kidney stones CVA (cerebral vascular accident) Peripheral neuropathy Asthma Urge urinary incontinence Weakness of foot Allergic to IV contrast Left acute arterial ischemic stroke, MCA (middle cerebral artery) Surgical History Hx of colonoscopy bladder repair,open Abdominal hysterectomy Family History Other Diabetes Hyperlipidemia Hypertension Social History Smoking/Tobacco Use Status: Never Smoking risk assessment performed?: Yes Alcohol Intake: never Drug use: Never Substance use type: does not use Household members: spouse Housing: house Number of Children: 3 number of grandchildren: 7 Pets and animals: No Current gender identity: female What is your relationship status?: Panel score (0-1 are the most socially isolated patients): 1 What type of physical activity do you participate in: swimming Seatbelt use: always Do you feel safe at home: Yes Do you feel safe in your relationship?: Yes Additional Social history: Lives in [place] with her . G[place] in [place]. Meds Allergies and Home Medications Allergies Allergy/AdvReac Type Severity Reaction Status Date / Time clopidogrel (From Plavix) Allergy Intermediate Skin Rash Verified 03/24/25 15:57 atenolol Allergy Mild Other (See Verified 03/24/25 15:57 Comment) ezetimibe (From Zetia) Allergy Mild Other (See Verified 03/24/25 15:57 Comment) hydroxychloroquine (From Allergy Mild Other (See Verified 03/24/25 15:57 Plaquenil) Comment) lisinopril Allergy Mild Other (See Verified 03/24/25 15:57 Comment) losartan (From Cozaar) Allergy Mild Other (See Verified 03/24/25 15:57 Comment) aspirin Allergy GI Bleeding Verified 03/24/25 15:57 cephalexin Allergy Rash Verified 03/24/25 15:57 ciprofloxacin Allergy Other (See Verified 03/24/25 15:57 Comment) empagliflozin (From Allergy Other (See Verified 03/24/25 15:57 Jardiance) Comment) Iodinated Contrast Media Allergy Unknown Verified 03/24/25 15:57 Wuyttlp-GEI-FjJ Reductase Allergy Other (See Verified 03/24/25 15:57 Inhibitor (Nahnkyt-Qpm-Jtv Comment) Reductase Inhibitor) oxycodone HCl (From Percocet) AdvReac VAZQUEZTALA Verified 03/24/25 15:57 Home Medications ?Medication ?Instructions ?Recorded ?Confirmed ?Type acetaminophen 325 mg tablet 650 mg (2 x 325 mg) PO Q4H PRN PRN 04/30/17 03/24/25 Rx (Tylenol) fever,pain apixaban 5 mg tablet (Eliquis) 5 mg PO BID #180 tabs 09/01/17 03/24/25 Rx cetirizine 10 mg tablet (Zyrtec) 10 mg PO DAILY 10/25/19 03/24/25 History metformin 750 mg tablet,extended 1,500 mg PO DAILY 10/25/19 03/24/25 History release 24 hr magnesium oxide 400 mg (241.3 mg 400 mg PO DAILY 12/12/20 03/24/25 History magnesium) tablet pen needle, diabetic ##1 12/12/20 03/24/25 History insulin lispro 100 unit/mL See Rx Instructions subcut 08/04/21 03/24/25 History subcutaneous pen (Humalog KwikPen DIRECTED (U-100) Insulin) semaglutide 2 mg/dose (8 mg/3 mL) 2 mg subcut QWEEK 11/02/22 03/24/25 History subcutaneous pen injector (Ozempic) metoprolol tartrate 25 mg tablet 25 mg PO DAILY 12/16/22 03/24/25 History pantoprazole 40 mg tablet,delayed 40 mg PO DAILY 12/16/22 03/24/25 History release spironolactone 25 mg tablet 25 mg PO DAILY 12/16/22 03/24/25 History gabapentin 300 mg capsule 600 mg (2 x 300 mg) PO BID #450 11/25/23 03/24/25 Rx caps furosemide 40 mg tablet 40 mg PO DAILY PRN 11/08/24 03/24/25 History insulin degludec 100 unit/mL (3 38 unit subcut QHS 11/08/24 03/24/25 History mL) subcutaneous pen (Tresiba FlexTouch U-100 insulin) losartan 25 mg tablet 25 mg PO DAILY 11/08/24 03/24/25 History vitamin B complex 1 tab PO DAILY 11/08/24 03/24/25 History evolocumab 140 mg/mL subcutaneous 140 mg subcut .every other week 03/24/25 03/24/25 History pen injector (Niru Fofana) fluorouracil 5 % topical cream 1 applic topical BID 03/24/25 03/24/25 History Exam Narrative Exam Narrative: HEENT-normocephalic atraumatic mucous membranes moist oropharynx is clear Neck-no lymphadenopathy no JVD no thyromegaly Uqiodjdyhrpvea-[id number] systolic ejection murmur with regular rate Pulm-clear to auscultation bilaterally good air exchange Abdomen-soft nontender nondistended bowel sounds active Neurologic-cranial nerves II through XII intact as tested reflexes in upper lower extremity normal as tested symmetrical smile able to raise her eyebrows Psych-alert oriented x 3 Results Labs 03/24/25 16:00 03/24/25 16:00 Labs: Laboratory Results - last 24 hr 03/24/25 03/24/25 03/24/25 15:54 16:00 16:55 WBC 8.19 RBC 4.35 Hgb 11.2 Hct 34.8 L MCV 80 MCH 25.7 L MCHC 32.2 RDW 15.6 H Plt Count 337 MPV 10.3 VBG Lactate 2.8 H* Sodium Cancelled 141 Potassium Cancelled 4.1 Chloride Cancelled 104 Carbon Dioxide Cancelled 23.6 Anion Gap Cancelled 13.4 H BUN Cancelled 21 H Creatinine Cancelled 1.5 H Est GFR (CKD-EPI 2020) Cancelled 36.80 Glucose Cancelled 192 H Calcium Cancelled 9.9 Total Bilirubin 0.5 AST 23 ALT 27 Alkaline Phosphatase 48 Troponin I 163 H* 170 H* Total Protein 6.9 Albumin 3.6 Urine Color Urine Clarity Urine pH Ur Specific [place] Urine Protein Urine Ketones Urine Blood Urine Nitrite Urine Bilirubin Urine Urobilinogen Ur Leukocyte Esterase Urine RBC Urine WBC Ur Epithelial Cells Urine Crystals Urine Bacteria Urine Casts Urine Mucus Ur Culture Indicated? Urine Glucose 03/24/25 03/24/25 19:03 19:45 WBC RBC Hgb Hct MCV MCH MCHC RDW Plt Count MPV VBG Lactate Sodium Potassium Chloride Carbon Dioxide Anion Gap BUN Creatinine Est GFR (CKD-EPI 2020) Glucose Calcium Total Bilirubin AST ALT Alkaline Phosphatase Troponin I 184 H* Total Protein Albumin Urine Color Yellow Urine Clarity Clear Urine pH 5.5 Ur Specific [place] 1.025 Urine Protein 100 H Urine Ketones Negative Urine Blood Negative Urine Nitrite Negative Urine Bilirubin Negative Urine Urobilinogen 0.2 Ur Leukocyte Esterase Negative Urine RBC 0-2 Urine WBC 0-2 Ur Epithelial Cells Rare Urine Crystals Negative Urine Bacteria Many Urine Casts 3-5 Hyaline Urine Mucus Negative Ur Culture Indicated? No Urine Glucose Negative Last Vital Signs Pulse 71 03/24/25 20:20 Resp 18 03/24/25 20:20 BP 147/61 H 03/24/25 18:16 Pulse Ox 96 03/24/25 20:20 Time Spent Time spent with Patient: 40-54 minutes Time was spent: preparing to see the patient(eg.review tests), obtaining and/or reviewing separately otained hiistory, ordering medications,tests, procedures, referring, communicating with other health laboratory animal care veterinarian, indepentently interpreting results, counseling the patient and care coordination
--- NOTE | 2025-03-24 21:20 | W.PC.ACHO ---
Registration Status: REG ER Primary Language: Preferred Language: Ukrainian ED Information & Data Chief Complaint Dizzy/Sync 03/24/25 19:04 Chief Complaint Dizzy/Sync 03/24/25 16:20 Triage Note had a sudden headache that 03/24/25 15:41 went away quickly with dizziness prior to fall. Right knee pain with decreased RO, denies head strike denies neck/back pain . Walking in yard using cane . Anticoagulated Medical / Surgical History (Last Reviewed 03/24/25 @ 16:21 by Rajinder Parish MD) Other amnesia Pain in right lower leg ESE (acute kidney injury) Recurrent UTI (urinary tract infection) Squamous cell skin cancer Pelvic pain in female Actinic keratosis Abnormal movements Tremor Sciatica Cervical radiculopathy Memory problem Sinus pause Mobitz type 1 second degree AV block Syncope Acute GI bleeding Acute blood loss anemia NSTEMI (non-ST elevated myocardial infarction) Hyperlipidemia Acne rosacea Hypertension Type 2 diabetes mellitus Allergic rhinitis Intermittent asthma Adequate 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 on anticoagulant therapy Myalgia Diarrhea Overflow incontinence Hypercalcemia H/O urinary frequency Urinary incontinence Carcinoma of skin Reactive depression Adjustment disorder with mixed anxiety and depressed mood Diabetic peripheral neuropathy Microalbuminuria Hyperparathyroidism Atypical chest pain History of CVA (cerebrovascular accident) Granulomatous disorder of the skin and subcutaneous tissue, unspecified Mixed stress and urge urinary incontinence History of kidney stones CVA (cerebral vascular accident) Peripheral neuropathy Asthma Urge urinary incontinence Weakness of foot Allergic to IV contrast Left acute arterial ischemic stroke, MCA (middle cerebral artery) (Last Reviewed 03/24/25 @ 16:21 by Rajinder Parish MD) Hx of colonoscopy bladder repair,open Abdominal hysterectomy Most Recent Vital Signs Pulse 70 03/24/25 21:09 Pulse 71 03/24/25 21:09 Respiratory Rate 18 03/24/25 21:09 Respiratory Effort Normal 03/24/25 17:30 Respiratory Depth Normal 03/24/25 17:30 Respiratory Pattern Normal 03/24/25 17:30 Blood Pressure 142/57 H 03/24/25 21:09 Blood Pressure Mean 85 03/24/25 21:09 Pulse Oximetry 94 03/24/25 21:09 Oxygen Delivery Method Room Air 03/24/25 15:41 Oxygen Flow Rate 0 03/24/25 15:41 Allergies clopidogrel (From Plavix) Allergy (Intermediate, Verified 03/24/25 15:57) Skin Rash atenolol Allergy (Mild, Verified 03/24/25 15:57) Other (See Comment) ezetimibe (From Zetia) Allergy (Mild, Verified 03/24/25 15:57) Other (See Comment) hydroxychloroquine (From Plaquenil) Allergy (Mild, Verified 03/24/25 15:57) Other (See Comment) lisinopril Allergy (Mild, Verified 03/24/25 15:57) Other (See Comment) losartan (From Cozaar) Allergy (Mild, Verified 03/24/25 15:57) Other (See Comment) aspirin Allergy (Verified 03/24/25 15:57) GI Bleeding cephalexin Allergy (Verified 03/24/25 15:57) Rash ciprofloxacin Allergy (Verified 03/24/25 15:57) Other (See Comment) empagliflozin (From Jardiance) Allergy (Verified 03/24/25 15:57) Other (See Comment) Recurrent Yeast and Urinary Tract Infections Iodinated Contrast Media Allergy (Verified 03/24/25 15:57) Unknown Rkxauov-JQL-ZiF Reductase Inhibitor (Bmuodwr-Hxd-Iqz Reductase Inhibitor) Allergy (Verified 03/24/25 15:57) Other (See Comment) oxycodone HCl (From Percocet) Adverse Reaction (Verified 03/24/25 15:57) CRAZY Precautions Isolation Standard precaution 03/24/25 19:04 IV IV Catheter Type [Left Peripheral IV Antecubital] IV Catheter Gauge [Left 20 Antecubital] Diet Orders Category Date Time Status Regular/Normal [DIET] Nutrition 03/25/25 Breakfast Ordered Diagnostics 03/24/25 03/24/25 03/24/25 Range/Units 23:57 21:57 19:45 WBC (4.4-10.8) 10^3/uL RBC (3.93-5.22) 10^6/uL Hgb (11.2-15.7) g/dL Hct (36.0-46.0) % MCV (80-95) fL MCH (27.0-33.0) pg MCHC (32.0-36.0) % RDW (11.7-14.6) % Plt Count (130-400) 10^3/uL MPV (8.0-11.0) fL VBG Lactate (<or=2.0) mmol/L Sodium Potassium Chloride Carbon Dioxide Anion Gap BUN Creatinine Est GFR (CKD-EPI 2020) Glucose Calcium Total Bilirubin (0.2-1.0) mg/dL AST (15-37) U/L ALT (14-59) U/L Alkaline Phosphatase (46-116) U/L Troponin I Pending Pending (<or=51) ng/L Total Protein (6.4-8.2) g/dL Albumin (3.4-5.0) g/dL Urine Color Yellow (Yellow) Urine Clarity Clear (Clear) Urine pH 5.5 (5-8) Ur Specific [place] 1.025 (1.005-1.025) Urine Protein 100 H (Neg-Trace) mg/dL Urine Ketones Negative (Negative) mg/dL Urine Blood Negative (Negative) Urine Nitrite Negative (Negative) Urine Bilirubin Negative (Negative) Urine Urobilinogen 0.2 (Up to 0.2) mg/dL Ur Leukocyte Esterase Negative (Negative) Urine RBC 0-2 (0-2) HPF Urine WBC 0-2 (0-5) HPF Ur Epithelial Cells Rare (Negative) HPF Urine Crystals Negative (Negative) HPF Urine Bacteria Many (Negative) HPF Urine Casts 3-5 Hyaline (Negative) LPF Urine Mucus Negative (Negative) Ur Culture Indicated? No Urine Glucose Negative (Negative) mg/dL 03/24/25 03/24/25 03/24/25 Range/Units 19:03 16:55 16:00 WBC 8.19 (4.4-10.8) 10^3/uL RBC 4.35 (3.93-5.22) 10^6/uL Hgb 11.2 (11.2-15.7) g/dL Hct 34.8 L (36.0-46.0) % MCV 80 (80-95) fL MCH 25.7 L (27.0-33.0) pg MCHC 32.2 (32.0-36.0) % RDW 15.6 H (11.7-14.6) % Plt Count 337 (130-400) 10^3/uL MPV 10.3 (8.0-11.0) fL VBG Lactate 2.8 H* (<or=2.0) mmol/L Sodium 141 Potassium 4.1 Chloride 104 Carbon Dioxide 23.6 Anion Gap 13.4 H BUN 21 H Creatinine 1.5 H Est GFR (CKD-EPI 2020) 36.80 Glucose 192 H Calcium 9.9 Total Bilirubin 0.5 (0.2-1.0) mg/dL AST 23 (15-37) U/L ALT 27 (14-59) U/L Alkaline Phosphatase 48 (46-116) U/L Troponin I 184 H* 170 H* 163 H* (<or=51) ng/L Total Protein 6.9 (6.4-8.2) g/dL Albumin 3.6 (3.4-5.0) g/dL Urine Color (Yellow) Urine Clarity (Clear) Urine pH (5-8) Ur Specific [place] (1.005-1.025) Urine Protein (Neg-Trace) mg/dL Urine Ketones (Negative) mg/dL Urine Blood (Negative) Urine Nitrite (Negative) Urine Bilirubin (Negative) Urine Urobilinogen (Up to 0.2) mg/dL Ur Leukocyte Esterase (Negative) Urine RBC (0-2) HPF Urine WBC (0-5) HPF Ur Epithelial Cells (Negative) HPF Urine Crystals (Negative) HPF Urine Bacteria (Negative) HPF Urine Casts (Negative) LPF Urine Mucus (Negative) Ur Culture Indicated? Urine Glucose (Negative) mg/dL 03/24/25 Range/Units 15:54 WBC (4.4-10.8) 10^3/uL RBC (3.93-5.22) 10^6/uL Hgb (11.2-15.7) g/dL Hct (36.0-46.0) % MCV (80-95) fL MCH (27.0-33.0) pg MCHC (32.0-36.0) % RDW (11.7-14.6) % Plt Count (130-400) 10^3/uL MPV (8.0-11.0) fL VBG Lactate (<or=2.0) mmol/L Sodium Cancelled Potassium Cancelled Chloride Cancelled Carbon Dioxide Cancelled Anion Gap Cancelled BUN Cancelled Creatinine Cancelled Est GFR (CKD-EPI 2020) Cancelled Glucose Cancelled Calcium Cancelled Total Bilirubin (0.2-1.0) mg/dL AST (15-37) U/L ALT (14-59) U/L Alkaline Phosphatase (46-116) U/L Troponin I (<or=51) ng/L Total Protein (6.4-8.2) g/dL Albumin (3.4-5.0) g/dL Urine Color (Yellow) Urine Clarity (Clear) Urine pH (5-8) Ur Specific [place] (1.005-1.025) Urine Protein (Neg-Trace) mg/dL Urine Ketones (Negative) mg/dL Urine Blood (Negative) Urine Nitrite (Negative) Urine Bilirubin (Negative) Urine Urobilinogen (Up to 0.2) mg/dL Ur Leukocyte Esterase (Negative) Urine RBC (0-2) HPF Urine WBC (0-5) HPF Ur Epithelial Cells (Negative) HPF Urine Crystals (Negative) HPF Urine Bacteria (Negative) HPF Urine Casts (Negative) LPF Urine Mucus (Negative) Ur Culture Indicated? Urine Glucose (Negative) mg/dL Intake and Output - 24 Hour Total 03/24/25 15:38 thru 03/24/25 19:47 Intake Total 500 Balance 500 Weight 73.4 kg Intake: IV 500 Falls Risk Assessment History of Falls Admit Due to Fall 03/24/25 17:29 Contributing Factors Confusion 03/24/25 17:29 Ambulatory Aids Uses ambulatory device 03/24/25 17:29 Tubes/Lines With any additional score 03/24/25 17:29 Gait Evaluation W/any additional score 03/24/25 17:29 Cognition Cognitive impairment 03/24/25 17:29 Fall Total Score 98 03/24/25 17:29 Level of Risk Maximum Risk 03/24/25 17:29 Problems (Last Reviewed 03/24/25 @ 16:21 by Rajinder Parish MD) Aortic stenosis (Chronic) Lacunar infarction (Acute) Fall (Acute) Paroxysmal atrial fibrillation (Chronic) Elevated troponin (Acute) Diabetes mellitus type 2, uncontrolled, with complications (Chronic) Hyperlipidemia associated with type 2 diabetes mellitus (Acute) Hypertension associated with diabetes (Chronic) v v v v v v v v v Sending and/or Receiving Nurses: Please use comment section below to note any information pertinent to the patient hand-off not included above. Information / Comments: Pt on RA. Risk of fall. Has a pacemaker. A+Ox2, not to situation. Has a diaper. Report received from: Marta COELLO
[2025-03-24] MEDS: Lactated Ringers 1,000 ML 75 ML IV (21:44)
[2025-03-24 21:55] LABS: Troponin I 176 ng/L (<or=51)
[2025-03-24 23:59] LABS: Troponin I 201 ng/L (<or=51)
[2025-03-25 07:28] VITALS: BP 139/83; PULSE 66; RESP 16; TEMP 36; O2SAT 93
[2025-03-25 07:31] LABS: Abs Immature Grans 0.02 10^3/uL (0.0-0.06); HCT 36.0 % (36.0-46.0); HGB 11.7 g/dL (11.2-15.7); Immature Grans % 0.2 %; MCH 26.5 pg (27.0-33.0); MCHC 32.5 % (32.0-36.0); MCV 81 fL (80-95); MPV 10.3 fL (8.0-11.0); Platelet Count 347 10^3/uL (130-400); RBC 4.42 10^6/uL (3.93-5.22); RDW 15.7 % (11.7-14.6); RDW-SD 46.3 fL; WBC 10.77 10^3/uL (4.4-10.8)
[2025-03-25] MEDS: Vitamins B Comp w/C TAB 1 TAB PO (07:53)
[2025-03-25] MEDS: Magnesium Oxide 400 MG TAB PO (07:53)
[2025-03-25] MEDS: Apixaban 5 MG TAB PO ×2 (07:53→20:00)
[2025-03-25] MEDS: Spironolactone 25 MG TAB PO (07:53)
[2025-03-25] MEDS: Cetirizine 10 MG TAB PO (07:53)
[2025-03-25] MEDS: Metoprolol CR 25 MG TABCR PO (07:53)
[2025-03-25] MEDS: Losartan 25 MG TAB PO (07:53)
[2025-03-25] MEDS: Pantoprazole 40 MG TABCR PO ×2 (07:53→20:00)
[2025-03-25] MEDS: Gabapentin 300 MG CAP 600 MG PO ×2 (07:53→19:59)
[2025-03-25 07:57] LABS: ALT 23 U/L (14-59); AST 20 U/L (15-37); Albumin 3.4 g/dL (3.4-5.0); Alkaline Phosphatase 47 U/L (46-116); Anion Gap 9.9 mmol/L (3-11); BUN 15 mg/dL (7-18); Bilirubin, Total 0.7 mg/dL (0.2-1.0); CO2 25.1 mmol/L (21.0-32.0); Calcium 9.7 mg/dL (8.5-10.1); Chloride 107 mmol/L (98-107); Estimated GFR 59.86 (mL/min/1.73m2); Glucose 82 mg/dL (74-106); Potassium 3.6 mmol/L (3.5-5.1); Sodium 142 mmol/L (136-145); TSH (W/Ref FT4) 1.32 uIU/mL (0.36-3.74); Total Protein 6.6 g/dL (6.4-8.2)
[2025-03-25 08:01] LABS: Troponin I 189 ng/L (<or=51)
--- NOTE | 2025-03-25 08:08 | PDOC.CMIN ---
Date of service: 03/25/25 Time of Service: 08:08 Care Management Initial Assmt Initial Assessment Reason for Hospitalization: fall Functional Status/Living Situation Patient Presentation: Joanna was sitting up in a chair visiting with her Kenneth when CM met with her. She was pleasant in interaction but seemed to be a bit forgetful. For example, she was unable to tell CM where her 3 children live. Per her , 2 live locally in [place] and the 3rd child, a son, lives in [place], [place].. He shared that Joanna is not at her baseline mentation since she fell yesterday. He stated she was really confused for a bit and has no idea what happened. She informed CM that she believes she just passed out. Joanna and Kenneth live in a single family, single story home in [place]. They describe their family as close. 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 She really enjoyed real estate but stated that it wasn't as easy as it looks and it involved a lot of paperwork. Joanna had a stroke a few years ago which left her with some left sided deficits. Per her CT scan, it is possible she has had another stroke. During her PT evaluation this morning it was noted that she has problems with balance and coordination and is ataxic. Joanna will likely benefit from home health PT when discharged and that is what PT recommends. Joanna has a walker and a cane but shared that she almost always uses the cane. Town of Residence: [place] Resides with: Spouse ( Lefty) Significant Other/Family: Local Employment Status: Retired Instrumental Activities of Daily Living (ADLs): Independent Medications Medication Management: No Issues/Barriers identified Physical Functioning/Mobility Assistive Device: has walker and cane Advance Directives Advance Directives: Do you have an Advance Directive: Y 03/24/25, 15:38 AD On File at [facility]: Y 03/24/25, 15:38 Date Asked 03/25/25 Today, 11:22 AD Date Reviewed 03/24/25 03/24/25, 15:56 COLST On File at [facility] No 03/24/25, 15:56 COLST Date Scanned Code Status Resuscitation Status Full Code Insurance Coverage/Financial Issues Insurance: [employer] Medicare Replacement Care Team Visit Care Team Role Provider Type Sivan Whitlock NP MD [facility] STAFF PHYSICIAN Elba Jett Primary Care Provider NON-[facility] STAFF PHYSICIAN InPatient Dorian Moreno Other Providers OTHER Rajinder Parish MD Emergency Provider [facility] STAFF PHYSICIAN Lefty Gutiérrez MD Admit Provider [facility] STAFF PHYSICIAN Attending Provider Discharge Potential Discharge Needs: PCP F/U Appt Anticipated Barriers to Discharge: None Identified Patient/Family Education Needs: Review discharge instructions, discuss Ask Me Three Transportation: Private vehicle Plan: Anticipate Joanna will be discharged home with new home health PT services when medically cleared. She will follow up with her community providers and plan of care and transport with family. CM will follow and continue to support discharge planning efforts. Social Determinants of Health Screening Social Determinants of health last assessed in clinic: 03/25/25 Will the Patient Participate in the Screening?: Yes Do you worry about having a steady place to live?: no Problems where you live: no known problems In the past 12 months, have you had to go without electric, gas, oil or water in your home?: no 1. Within the past 12 months, we worried whether our food would run out before we got money to buy more.: Never true 2. Within the past 12 months, the food we bought just didn't last and we didn't have money to get more.: Never true Has lack of transportation kept you from medical appointments or from doing things needed for daily living?: no Has anyone in your life made you feel unsafe or unsupported?: no How hard is it for you to pay for the very basics like food, housing, medical care, and heating? Would you say it is:: Not hard at all Do you want help finding or keeping work or a job?: I do not need or want help If for any reason you need help with day-to-day activities such as bathing, preparing meals, shopping, managing finances, etc., do you get the help you need?: I don?t need any help How often do you feel lonely or isolated from those around you?: Never Do you speak a language other than Tristanian at home?: No Does the patient want assistance with any of the above?: No PFSH All Active Problems (Updated 03/24/25 @ 22:03 by Rajinder Parish MD) Dehydration (Acute) Ventricular tachycardia (Chronic) Altered mental status (Acute) Aortic stenosis (Chronic) Lacunar infarction (Acute) Fall (Acute) History of squamous cell carcinoma (Acute) Screening for malignant neoplasm of skin (Acute) Hyperlipidemia (Acute 02/01/13) Diabetes mellitus (Chronic 02/01/13) Cerebrovascular accident (CVA) due to embolism of left middle cerebral artery (Acute 06/08/17) Distal paresthesia (Acute) Dizziness (Acute) Imbalance (Acute) Paroxysmal atrial fibrillation (Chronic) Elevated troponin (Acute) Bradykinesia (Acute) Neuropathic pain (Acute) Diabetes mellitus type 2, uncontrolled, with complications (Chronic) Hyperlipidemia associated with type 2 diabetes mellitus (Acute) Hypertension associated with diabetes (Chronic) Medical History Other amnesia Pain in right lower leg ESE (acute kidney injury) Recurrent UTI (urinary tract infection) Squamous cell skin cancer Pelvic pain in female Actinic keratosis Abnormal movements Tremor Sciatica Cervical radiculopathy Memory problem Sinus pause Mobitz type 1 second degree AV block Syncope Acute GI bleeding Acute blood loss anemia NSTEMI (non-ST elevated myocardial infarction) Hyperlipidemia Acne rosacea Hypertension Type 2 diabetes mellitus Allergic rhinitis Intermittent asthma Adequate 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 on anticoagulant therapy Myalgia Diarrhea Overflow incontinence Hypercalcemia H/O urinary frequency Urinary incontinence Carcinoma of skin Reactive depression Adjustment disorder with mixed anxiety and depressed mood Diabetic peripheral neuropathy Microalbuminuria Hyperparathyroidism Atypical chest pain History of CVA (cerebrovascular accident) Granulomatous disorder of the skin and subcutaneous tissue, unspecified Mixed stress and urge urinary incontinence History of kidney stones CVA (cerebral vascular accident) Peripheral neuropathy Asthma Urge urinary incontinence Weakness of foot Allergic to IV contrast Left acute arterial ischemic stroke, MCA (middle cerebral artery) Surgical History Hx of colonoscopy bladder repair,open Abdominal hysterectomy Family History Other Diabetes Hyperlipidemia Hypertension Social History Smoking/Tobacco Use Status: Never Smoking risk assessment performed?: Yes Alcohol Intake: never Drug use: Never Substance use type: does not use Household members: spouse Housing: house Number of Children: 3 number of grandchildren: 7 Pets and animals: No Current gender identity: female What is your relationship status?: Panel score (0-1 are the most socially isolated patients): 1 What type of physical activity do you participate in: swimming Seatbelt use: always Do you feel safe at home: Yes Do you feel safe in your relationship?: Yes Additional Social history: Lives in [place] with her . Grew up in [place] [facility].
[2025-03-25] MEDS: Lactated Ringers 1,000 ML 75 ML IV (11:24)
--- NOTE | 2025-03-25 11:34 | PHA.REVIEW2 ---
Pharmacy Admission Review Admission Clinical Review Admission Pharmacy Review: Lacunar infarction (Acute) Fall (Acute) Elevated troponin (Acute) Hyperlipidemia associated with type 2 diabetes mellitus (Acute) clopidogrel (From Plavix) Allergy (Intermediate, Verified 03/24/25 15:57) Skin Rash atenolol Allergy (Mild, Verified 03/24/25 15:57) Other (See Comment) ezetimibe (From Zetia) Allergy (Mild, Verified 03/24/25 15:57) Other (See Comment) hydroxychloroquine (From Plaquenil) Allergy (Mild, Verified 03/24/25 15:57) Other (See Comment) lisinopril Allergy (Mild, Verified 03/24/25 15:57) Other (See Comment) losartan (From Cozaar) Allergy (Mild, Verified 03/24/25 15:57) Other (See Comment) aspirin Allergy (Verified 03/24/25 15:57) GI Bleeding cephalexin Allergy (Verified 03/24/25 15:57) Rash ciprofloxacin Allergy (Verified 03/24/25 15:57) Other (See Comment) empagliflozin (From Jardiance) Allergy (Verified 03/24/25 15:57) Other (See Comment) Iodinated Contrast Media Allergy (Verified 03/24/25 15:57) Unknown Xxuvwqf-IZC-HgB Reductase Inhibitor (Qawbdwl-Hhg-Dpl Reductase Inhibitor) Allergy (Verified 03/24/25 15:57) Other (See Comment) oxycodone HCl (From Percocet) Adverse Reaction (Verified 03/24/25 15:57) CRAZY Resuscitation Status Full Code Height 5 ft 4 in Weight 73.4 kg Pharmacy Admission Review Renal Dosing Renal Dosing: BUN 15 mg/dL (7-18) 03/25/25 07:10 Creatinine 1.0 mg/dL (0.55-1.02) 03/25/25 07:10 Medications needing adjustments: Reviewed (CrCl 49.9 mL/min, BUN down from 21 and SCr down from 1.5) List of meds needing interventions: Current medications are okay Anticoagulation Anticoagulation: Hgb 11.7 g/dL (11.2-15.7) 03/25/25 07:10 Hct 36.0 % (36.0-46.0) 03/25/25 07:10 Plt Count 347 10^3/uL (130-400) 03/25/25 07:10 Creatinine 1.0 mg/dL (0.55-1.02) 03/25/25 07:10 DVT Prophylaxis: Reviewed Medications: Apixaban (5mg BID) Relevant Labs Relevant Labs: Sodium 142 mmol/L (136-145) 03/25/25 07:10 Potassium 3.6 mmol/L (3.5-5.1) 03/25/25 07:10 Chloride 107 mmol/L (98-107) 03/25/25 07:10 Electrolytes, C-Reactive P, ESR: Reviewed DM Control DM Control: Glucose 82 mg/dL (74-106) 03/25/25 07:10 Finger Stick Blood Glucose 88 Finger Stick Blood Glucose 82 Finger Stick Blood Glucose 82 DM Control: Reviewed Insulin Dosing, Diabetic Medication: Has orders for SS insulin and glargine 38 units at bedtime Cardiac Review Cardiac Review: Troponin I 189 ng/L (<or=51) H* 201 ng/L (<or=51) H* 176 ng/L (<or=51) H* 184 ng/L (<or=51) H* 170 ng/L (<or=51) H* 163 ng/L (<or=51) H* 03/25/25 07:10 03/24/25 23:25 03/24/25 21:23 03/24/25 19:03 03/24/25 16:55 03/24/25 16:00 BP, HR, EF%: Reviewed (BP and HR WNL) List meds needing interventions: Has orders for losartan 25mg daily, metoprolol XL 25mg daily and spironolactone 25mg daily. Also has an order for daily as needed furosemide. QTc Review QTc: Reviewed (488 from 03/24/25) IV to PO Switch IV Medications: Reviewed Home Meds Home Med List reviewed: Intervened Relevent Home Meds Not ordered & why?: metformin (on hold per H+P) Asked nurse to check with patient when their next doses of Repatha and Ozempic are due. Waiting to hear back, left orders pending for now. Changed order for fluorouracil cream to patients own (non-formulary) - will need to be brought in from home if patient wants to use while admitted. Sent message to provider as patient takes pantoprazole twice daily at home but was ordered for once daily. Provider is looking into it. Current Meds Current Medication Order Review: Intervened Comments: Discontinued duplicate acetaminophen and Miralax orders Added IV access order Changed pantoprazole timing from 0830 to 0730 per pharmacy protocol
[2025-03-25] MEDS: Insulin Aspart 300 UNITS/3 ML PEN SC (11:58)
--- NOTE | 2025-03-25 13:03 | IN_ITS ---
PT Notes Visit Reasons: weakness Inpatient Physical Therapy Evaluation Date: 03/25/25 Referring Doctor: Dr. Gutiérrez Precautions: Fall precautions Patient Profile/Admitting Diagnosis: weakness PMHX: Aortic stenosis (Chronic) Lacunar infarction (Acute) Fall (Acute) History of squamous cell carcinoma (Acute) Screening for malignant neoplasm of skin (Acute) Hyperlipidemia (Acute 02/01/13) Diabetes mellitus (Chronic 02/01/13) Cerebrovascular accident (CVA) due to embolism of left middle cerebral artery (Acute 06/08/17) Distal paresthesia (Acute) Dizziness (Acute) Imbalance (Acute) Paroxysmal atrial fibrillation (Chronic) Elevated troponin (Acute) Bradykinesia (Acute) Neuropathic pain (Acute) Diabetes mellitus type 2, uncontrolled, with complications (Chronic) Hyperlipidemia associated with type 2 diabetes mellitus (Acute) Hypertension associated with diabetes (Chronic) Social History/Home Situation: Lives at home with her who is very supportive, no stairs to manage, grab bars throughout home with walk in shower and raised toilet seat, has RW from previous stroke but has not needed to use it recently Current Functional Limitations: notes she has had left sided numbness due to her previous stroke Equipment Owned/DME: RW and cane Subjective: Pt admitted after experiencing and unwitnessed fall at home. She is unsure of how she fell and just remembers waking up with her asking what happened. Lacunar infarcts were found during initial imaging Objective: General Observation: Resting in chair, happy to work with PT Mental Status: A+Ox3 - knows she is in a hospital but is unaware of which hospital she is in Pain: Denies pain Vital Signs: monitored by nursing ROM: WFL throughout UEs and LEs Strength: Able to perform SLR, heel slide, LAQs, DF/PF bilaterally Sensation: LLE hyposensitive distal to knee Coordination: Heel to browne - impaired on LLE Finger opposition - impaired on LUE Bed Mobility/Transfers: sit to stand w/CGA stand to sit w/CGA bed to chair w/CGA chair to bed w/CGA Gait: Ataxic gait observed with decreased stride length and gait speed Balance: Static Sitting: good Dynamic Sitting: good Static Standing: fair Dynamic Standing: poor Special Tests: Mobility Limitations Standardized Measure [facility] AM-PAC 6 clicks Basic Mobility Inpatient Short Form: Raw Score: 20 CMS Score: 35.83% Informed Consent/Education: Patient instructed in purpose of PT consult and plan of care. Assessment: Pt currently is showing signs of a CVA especially with her gait as she is ataxic. Her coordination is her main limitation as she had difficulty with heel to browne testing for LE coordination. Her strength seems fairly equal in both her UE and LE. She is able to perform a sit to stand with only CGA. Due to having a supportive and having no stairs to manage at home, she will likely be able to return home once discharged with home health services. PT will continue to follow. Patient is assessed as a [x] Moderate 41405 complexity based on the following: History: Moderate Examination: Moderate Presentation: Moderate Decision Making: Moderate Goals: Goals X1 week 1. Supine-Sit w/SBA 2. Sit-Supine w/SBA 3. Sit-Stand w/SBA 4. Stand-Sit w/SBA 5. Bed-Chair w/SBA 6. Chair-Bed w/SBA 7. Gait - 100 ft w/RW and SBA Plan of Care/Treatment Plan: 1-2x/day, 7 days/week x 1 week. Plan of care has been reviewed with the CANCER PROGRAM COORDINATOR providing the service under Physical Therapy direction. Initiate Physical Therapy intervention for strengthening, bed mobility, transfers, gait, stairs, balance training, use of assistive device. DISCHARGE RECOMMENDATIONS: [x] Home with home health services TREATMENT CODE/TIME: Moderate Eval (53131) x1 - 30 min
[2025-03-25] MEDS: Acetaminophen 325 MG TAB PO (14:06)
--- NOTE | 2025-03-25 14:18 | PGE_ITS ---
Date of Service Date of service: 03/25/25 Time of Service: 14:19 Assessment and Plan Assessment and plan (1) Fall: Status: Acute Assessment and plan: Fall with multiple possible contributing factors. Does not appear to be seizure- related. Differential includes dehydration, cerebrovascular event, and worsening aortic stenosis. Monitor for any change in status. MRI of the brain planned for Sunday 03/25, to evaluate for acute neurologic events. Gentle hydration. Echocardiogram to evaluate the systolic murmur and assess for progression of aortic stenosis. (2) Hyperlipidemia associated with type 2 diabetes mellitus: Status: Acute Assessment and plan: Continue with medical management. Lipid panel pending am of 03/26 (3) Hypertension associated with diabetes: Status: Chronic Assessment and plan: Hypertension on multiple medications, including diuretics. History of LVH makes fluid status management challenging. Continue to monitor blood pressure and fluid status closely. Adjust medications as needed based on hemodynamics and renal function. Reinforce adherence to diet and home monitoring. (4) Paroxysmal atrial fibrillation: Status: Chronic Assessment and plan: Paroxysmal atrial fibrillation in a patient with a pacemaker. Currently anticoagulated with Eliquis. Continue Eliquis Continue monitoring heart rate and rhythm. Routine follow-up with cardiology as scheduled. Educate patient on symptoms of palpitations, dizziness, or syncope and when to seek care. (5) Elevated troponin: Status: Acute Assessment and plan: Patient has a history of mildly elevated troponins. Current elevation does not appear to indicate acute coronary syndrome; no chest pain, pressure, shortness of breath, diaphoresis, or other acute cardiac symptoms Trops - 1176, 201, 189 Continue to monitor for any chest pain, shortness of breath, or other cardiac symptoms. Correlate with ECG and clinical status; no acute intervention required at this time. (6) Diabetes mellitus type 2, uncontrolled, with complications: Status: Chronic Assessment and plan: Type 2 diabetes. Current creatinine 1.5 mg/dL, raising concerns about metformin use given potential risk of lactic acidosis and limited benefit with her other medications. Continue home diabetes medications except metformin. Recommedation to PCP - Consider stopping metformin due to renal function and potential side effects. Monitor blood glucose and adjust other medications as needed. Reinforce diet, lifestyle, and home glucose monitoring. (7) Lacunar infarction: Status: Acute Assessment and plan: Suspected new nonhemorrhagic lacunar infarct on the left side at the junction of the anterior thalamus and posterior limb of the internal capsule. Not present on prior CT from November 2023. Follow-up MRI to confirm (or rule out) acute infarct. Continue monitoring neurologic status for any new deficits. Manage vascular risk factors (blood pressure, diabetes, 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 as indicated). Consider neurology consultation if deficits develop or for further management planning. (8) Aortic stenosis: Status: Chronic Assessment and plan: Patient has at least a 3/6 systolic ejection murmur. probably contributing to weakness and falls. Echocardiogram pending to assess severity. Obtain echocardiogram to evaluate valve function and severity of aortic stenosis. Continue monitoring for symptoms such as syncope, dyspnea, or worsening fatigue. Manage contributing risk factors (blood pressure, fluid status, cardiac comorbidities). Subjective Subjective Patient reports: no new complaints Exam Narrative Exam Narrative: HEENT: Normocephalic, atraumatic. Mucous membranes moist. Oropharynx clear. Neck: No lymphadenopathy, no JVD, no thyromegaly. Cardiovascular: Regular rate, 3/6 systolic ejection murmur. Pulmonary: Clear to auscultation bilaterally, good air exchange. Abdomen: Soft, nontender, nondistended, bowel sounds active. Neurologic: Cranial nerves II?XII intact as tested. Reflexes normal in upper and lower extremities. Symmetrical smile, able to raise eyebrows. Psychiatric: Alert and oriented ?3. Objective Last Vital Signs Temp 36.0 C L 03/25/25 07:28 Pulse 66 03/25/25 07:28 Resp 16 03/25/25 07:28 BP 139/83 03/25/25 07:28 Pulse Ox 93 03/25/25 07:28 Laboratory Results - last 24 hr 03/24/25 03/24/25 03/24/25 15:54 16:00 16:55 WBC 8.19 RBC 4.35 Hgb 11.2 Hct 34.8 L MCV 80 MCH 25.7 L MCHC 32.2 RDW 15.6 H Plt Count 337 MPV 10.3 Immature Gran % Neutrophils % Lymphocytes % Monocytes % Eosinophils % Basophils % Nucleated RBC % Absolute Neutrophils Absolute Lymphocytes Absolute Monocytes Absolute Eosinophils Absolute Basophils VBG Lactate 2.8 H* Sodium Cancelled 141 Potassium Cancelled 4.1 Chloride Cancelled 104 Carbon Dioxide Cancelled 23.6 Anion Gap Cancelled 13.4 H BUN Cancelled 21 H Creatinine Cancelled 1.5 H Est GFR (CKD-EPI 2020) Cancelled 36.80 Glucose Cancelled 192 H Calcium Cancelled 9.9 Total Bilirubin 0.5 AST 23 ALT 27 Alkaline Phosphatase 48 Troponin I 163 H* 170 H* Total Protein 6.9 Albumin 3.6 TSH Urine Color Urine Clarity Urine pH Ur Specific Lookout Urine Protein Urine Ketones Urine Blood Urine Nitrite Urine Bilirubin Urine Urobilinogen Ur Leukocyte Esterase Urine RBC Urine WBC Ur Epithelial Cells Urine Crystals Urine Bacteria Urine Casts Urine Mucus Ur Culture Indicated? Urine Glucose 03/24/25 03/24/25 03/24/25 19:03 19:45 21:23 WBC RBC Hgb Hct MCV MCH MCHC RDW Plt Count MPV Immature Gran % Neutrophils % Lymphocytes % Monocytes % Eosinophils % Basophils % Nucleated RBC % Absolute Neutrophils Absolute Lymphocytes Absolute Monocytes Absolute Eosinophils Absolute Basophils VBG Lactate Sodium Potassium Chloride Carbon Dioxide Anion Gap BUN Creatinine Est GFR (CKD-EPI 2020) Glucose Calcium Total Bilirubin AST ALT Alkaline Phosphatase Troponin I 184 H* 176 H* Total Protein Albumin TSH Urine Color Yellow Urine Clarity Clear Urine pH 5.5 Ur Specific Lookout 1.025 Urine Protein 100 H Urine Ketones Negative Urine Blood Negative Urine Nitrite Negative Urine Bilirubin Negative Urine Urobilinogen 0.2 Ur Leukocyte Esterase Negative Urine RBC 0-2 Urine WBC 0-2 Ur Epithelial Cells Rare Urine Crystals Negative Urine Bacteria Many Urine Casts 3-5 Hyaline Urine Mucus Negative Ur Culture Indicated? No Urine Glucose Negative 03/24/25 03/25/25 23:25 07:10 WBC 10.77 RBC 4.42 Hgb 11.7 Hct 36.0 MCV 81 MCH 26.5 L MCHC 32.5 RDW 15.7 H Plt Count 347 MPV 10.3 Immature Gran % 0.2 Neutrophils % 52.2 Lymphocytes % 37.0 Monocytes % 8.7 Eosinophils % 1.3 Basophils % 0.6 Nucleated RBC % 0.0 Absolute Neutrophils 5.62 Absolute Lymphocytes 3.99 H Absolute Monocytes 0.94 H Absolute Eosinophils 0.14 Absolute Basophils 0.06 VBG Lactate 1.3 Sodium 142 Potassium 3.6 Chloride 107 Carbon Dioxide 25.1 Anion Gap 9.9 BUN 15 Creatinine 1.0 Est GFR (CKD-EPI 2020) 59.86 Glucose 82 Calcium 9.7 Total Bilirubin 0.7 AST 20 ALT 23 Alkaline Phosphatase 47 Troponin I 201 H* 189 H* Total Protein 6.6 Albumin 3.4 TSH 1.32 Urine Color Urine Clarity Urine pH Ur Specific Lookout Urine Protein Urine Ketones Urine Blood Urine Nitrite Urine Bilirubin Urine Urobilinogen Ur Leukocyte Esterase Urine RBC Urine WBC Ur Epithelial Cells Urine Crystals Urine Bacteria Urine Casts Urine Mucus Ur Culture Indicated? Urine Glucose Time Spent with Patient Time Spent with Patient: 25-34 minutes Time was spent: preparing to see the patient(eg.review tests), ordering medications,tests, procedures, referring, communicating with other health childcare provider, indepentently interpreting results, counseling the patient and care coordination
[2025-03-25 19:34] VITALS: BP 132/66; PULSE 76; RESP 15; TEMP 36.9; O2SAT 95
[2025-03-25] MEDS: Insulin Glargine 300 UNITS/3 ML PEN 38 UNITS SC (22:06)
--- NOTE | 2025-03-26 | DI.US_ITS ---
Exam(s) US CAROTID EXAM: US CAROTID CLINICAL HISTORY: Stroke - req by neuro [facility] [place]. TECHNIQUE: Ultrasound carotids performed using grayscale, color-flow, and spectral Doppler imaging. COMPARISON: US US ECHOCARDIOGRAM from 03/26/2025 FINDINGS: CAROTID ARTERIES: There is no obvious plaque in the common carotid arteries. There is some plaque at the level the carotid bulbs and proximal internal carotid arteries but without elevated velocities on either side at these levels. This implies that the amount stenosis is less than 50 percent bilaterally at these levels. VERTEBRAL ARTERIES: Antegrade flow is demonstrated in both vertebral arteries. Measurements: R Bulb: 32.6cm/s PS / 9.2cm/s ED R CCA: 51.6cm/s PS / 11.2cm/s ED R ECA: 76.4cm/s PS / 4.3cm/s ED R ICA Prox: 88.2cm/s PS / 25.1cm/s ED R ICA Mid: 73.5cm/s PS / 22.1cm/s ED R ICA Distal: 82.9cm/s PS /27.7cm/s ED R Vert: 57cm/s PS / 17.7cm/s ED R SVR: 1.7 R DVR: 2.2 L Bulb: 50cm/s PS / 12.5cm/s ED L CCA: 49.4cm/s PS / 12.7cm/s ED L ECA: 95.5cm/s PS / 7.8cm/s ED L ICA Prox: 66.3cm/s PS / 13.7cm/s ED L ICA Mid: 82.2cm/s PS / 29.4cm/s ED L ICA Distal: 94.6cm/s PS / 35.5cm/s ED L Vert: 51.6cm/s PS / 15.2cm/s ED L SVR: 1.9 L DVR: 2.8 IMPRESSION: Some plaque bilaterally at the carotid bulb-proximal internal carotid arteries. Amount of stenosis by velocity measurement is less than 50 percent bilaterally. Antegrade flow is demonstrated in both vertebral arteries. Criteria for Carotid Stenosis: Normal: ICA PSV <125 cm/s no plaque or intimal thickening is visible. <50% stenosis: ICA PSV <125 cm/s and plaque or intimal thickening is visible. 50-69% stenosis: ICA PSV is 125-250 cm/s and plaque is visible. >70% stenosis to near occlusion: ICA PSV >250 cm/s with visible plaque and luminal narrowing. DATA REPOSITORY:
[2025-03-26] MEDS: Lactated Ringers 1,000 ML 75 ML IV ×2 (01:31→16:11)
[2025-03-26 05:59] LABS: Abs Immature Grans 0.02 10^3/uL (0.0-0.06); HCT 33.2 % (36.0-46.0); HGB 10.6 g/dL (11.2-15.7); Immature Grans % 0.2 %; MCH 25.8 pg (27.0-33.0); MCHC 31.9 % (32.0-36.0); MCV 81 fL (80-95); MPV 10.8 fL (8.0-11.0); Platelet Count 304 10^3/uL (130-400); RBC 4.11 10^6/uL (3.93-5.22); RDW 15.6 % (11.7-14.6); RDW-SD 45.4 fL; WBC 9.26 10^3/uL (4.4-10.8)
[2025-03-26 06:50] LABS: Anion Gap 8.7 mmol/L (3-11); BUN 14 mg/dL (7-18); CO2 26.3 mmol/L (21.0-32.0); Calcium 9.8 mg/dL (8.5-10.1); Calculated LDL 39 mg/dL (<100); Chloride 108 mmol/L (98-107); Cholesterol 111 mg/dL (<200); Estimated GFR 48.09 (mL/min/1.73m2); Glucose 145 mg/dL (74-106); HDL Cholesterol 40 mg/dL (>or=50); Magnesium 1.5 mg/dL (1.8-2.4); Potassium 3.9 mmol/L (3.5-5.1); Sodium 143 mmol/L (136-145); Triglyceride 160 mg/dL (<150)
[2025-03-26 07:55] VITALS: BP 141/82; PULSE 75; RESP 17; TEMP 36.7; O2SAT 96
[2025-03-26] MEDS: Pantoprazole 40 MG TABCR PO ×2 (08:45→20:39)
[2025-03-26] MEDS: Losartan 25 MG TAB PO (08:47)
[2025-03-26] MEDS: Spironolactone 25 MG TAB PO (08:48)
[2025-03-26] MEDS: Gabapentin 300 MG CAP 600 MG PO ×2 (08:48→20:38)
[2025-03-26] MEDS: Cetirizine 10 MG TAB PO (08:48)
[2025-03-26] MEDS: Metoprolol CR 25 MG TABCR PO (08:48)
[2025-03-26] MEDS: Vitamins B Comp w/C TAB 1 TAB PO (08:48)
[2025-03-26] MEDS: Magnesium Oxide 400 MG TAB PO (08:49)
[2025-03-26] MEDS: Apixaban 5 MG TAB PO ×2 (08:49→20:39)
[2025-03-26] MEDS: MAGNESIUM SULFATE 1 GM/100 ML BAG IV_INF (09:43)
[2025-03-26] MEDS: Insulin Aspart 300 UNITS/3 ML PEN SC ×3 (12:22→21:31)
--- NOTE | 2025-03-26 12:29 | NUR.NOTE ---
Spoke to JALEN Zavala regarding patient's allergy to aspirin. He contacted provider LICENSE ISSUER Sivan Whitlock, which was then confirmed safe to give.
--- NOTE | 2025-03-26 12:36 | NUR.NOTE ---
In room to give aspirin, both patient and state that she cannot have aspirin with eliquis, Patient and state she had a GI bleed a year ago. JALEN Zavala and Provider SWEATBAND SHAPER Sivan Whitlock notified of patient refusal.
--- NOTE | 2025-03-26 12:49 | NUR.NOTE ---
Nursing Note:Documentation by OKSANA Booth student reviewed.
--- NOTE | 2025-03-26 13:51 | CMPROGNOTE_ITS ---
Date of service: 03/26/25 Time of Service: 13:51 Care Management Progress Note Progress Note Text Progress Note Text: Joanna was lying in bed and awake when CM met with her. The patient was accompanied by her , Lefty, during the visit. Lefty requested that all care updates be communicated to both him and the patient, citing his concerns regarding the patient experiencing current memory difficulties and her difficulty to accurately recall or retain information. Per report, Joanna had an echo; However, due to the presence of a pacemaker, she will require an outpatient MRI. Lefty voiced concerns regarding the patient?s current course of care. These concerns were acknowledged, and appropriate follow-up and clarification will be provided as needed; Provider aware. Joanna was able to work with PT again; Recommendation continues to be home with new services. CM will continue to follow. Discharge Potential Discharge Needs: Imaging/labs (Outpatient MRI due to pacemaker ) and PCP F/U Appt Anticipated Barriers to Discharge: None Identified Patient/Family Education Needs: Review discharge instructions, discuss Ask Me Three Transportation: Private vehicle Plan: Anticipate Joanna will be discharged home with new home health PT, RN, IN SERVICE EDUCATION TEACHER services when medically cleared. It is recommended she follow up with her community providers and discharge plan of care. She will likely require an outpatient MRI. Joanna will likely transport with family. CM will follow. Social Determinants of Health Screening Social Determinants of health last assessed in clinic: 03/26/25 Will the Patient Participate in the Screening?: Yes Do you worry about having a steady place to live?: no Problems where you live: no known problems In the past 12 months, have you had to go without electric, gas, oil or water in your home?: no 1. Within the past 12 months, we worried whether our food would run out before we got money to buy more.: Don't know/refused 2. Within the past 12 months, the food we bought just didn't last and we didn't have money to get more.: Don't know/refused Has lack of transportation kept you from medical appointments or from doing things needed for daily living?: no Has anyone in your life made you feel unsafe or unsupported?: no How hard is it for you to pay for the very basics like food, housing, medical care, and heating? Would you say it is:: Not hard at all Do you want help finding or keeping work or a job?: I do not need or want help If for any reason you need help with day-to-day activities such as bathing, preparing meals, shopping, managing finances, etc., do you get the help you need?: I don?t need any help How often do you feel lonely or isolated from those around you?: Never Do you speak a language other than Belarusian at home?: No Does the patient want assistance with any of the above?: No
--- NOTE | 2025-03-26 14:20 | W.NUTRFU ---
Date of service: 03/26/25 Time of Service: 13:00 Nutrition Note NOTE: Visited with Cristino and her . Joanna admitted after a fall at home and being worked up due to AMS. Hx of DMII, HLD, CVA, HTN. having some memory issues when asked what she had for lunch but was able to remember chicken salad s/w. Denies significant weight changes or concerns with chewing swallowing. Denies bowel/toileting concerns. A1C was 9.24 Jul 2023. fasting glucose 145 today, 135 at breakfast and 194 at lunch. Ordered for 38u glargine and senstive sliding scale for corrections QID. Mag 1.5 today - given IV repletion and continues on oral MagOx. States her appetite is fair. Shared a few food preferences/dislikes. Offered nutrition outpatient services to help keep glucose closer to target and wt mgt. Pt denies any significant nutrition concerns at this time. NFPE declined at this time. Recommendations: -Current A1C level Will continue to monitor intake and nutrition education needs/desire. Time Spent in Nutritional Counseling and Treatment: 10 min
--- NOTE | 2025-03-26 15:01 | PHA.REVIEW2 ---
Pharmacy Admission Review Admission Clinical Review Admission Pharmacy Review: Lacunar infarction (Acute) Fall (Acute) Elevated troponin (Acute) Hyperlipidemia associated with type 2 diabetes mellitus (Acute) clopidogrel (From Plavix) Allergy (Intermediate, Verified 03/24/25 15:57) Skin Rash atenolol Allergy (Mild, Verified 03/24/25 15:57) Other (See Comment) ezetimibe (From Zetia) Allergy (Mild, Verified 03/24/25 15:57) Other (See Comment) hydroxychloroquine (From Plaquenil) Allergy (Mild, Verified 03/24/25 15:57) Other (See Comment) lisinopril Allergy (Mild, Verified 03/24/25 15:57) Other (See Comment) losartan (From Cozaar) Allergy (Mild, Verified 03/24/25 15:57) Other (See Comment) aspirin Allergy (Verified 03/24/25 15:57) GI Bleeding cephalexin Allergy (Verified 03/24/25 15:57) Rash ciprofloxacin Allergy (Verified 03/24/25 15:57) Other (See Comment) empagliflozin (From Jardiance) Allergy (Verified 03/24/25 15:57) Other (See Comment) Iodinated Contrast Media Allergy (Verified 03/24/25 15:57) Unknown Egzdaue-JBO-QhD Reductase Inhibitor (Uboxdzt-Vfx-Hqj Reductase Inhibitor) Allergy (Verified 03/24/25 15:57) Other (See Comment) oxycodone HCl (From Percocet) Adverse Reaction (Verified 03/24/25 15:57) CRAZY Resuscitation Status Full Code Height 5 ft 4 in Weight 81.788 kg Comments Comments/Follow Ups: monitor blood sugars, BP, & HR Pharmacy Admission Review Renal Dosing Renal Dosing: Est Crcl=43 BUN 14 mg/dL (7-18) 03/26/25 05:16 Creatinine 1.2 mg/dL (0.55-1.02) H 03/26/25 05:16 Medications needing adjustments: Reviewed List of meds needing interventions: NONE Anticoagulation Anticoagulation: Hgb 10.6 g/dL (11.2-15.7) L 03/26/25 05:16 Hct 33.2 % (36.0-46.0) L 03/26/25 05:16 Plt Count 304 10^3/uL (130-400) 03/26/25 05:16 Creatinine 1.2 mg/dL (0.55-1.02) H 03/26/25 05:16 Therapeutic Anticoagulation: Reviewed Medications: Apixaban Relevant Labs Relevant Labs: Sodium 143 mmol/L (136-145) 03/26/25 05:16 Potassium 3.9 mmol/L (3.5-5.1) 03/26/25 05:16 Chloride 108 mmol/L (98-107) H 03/26/25 05:16 Magnesium 1.5 mg/dL (1.8-2.4) L 03/26/25 05:16 Electrolytes, C-Reactive P, ESR: Reviewed (magnesium repleted. ) DM Control DM Control: Reviewed Insulin Dosing, Diabetic Medication: pt with h/o DM; on insulin aspart + glargine. Holding home metformin due to Scr=1.5 and concern for adverse effects. AM glucose =145. Cardiac Review Cardiac Review: On multiple BP meds (losartan and metoprolol) current PP=124/82; hr=75. Troponin I 189 ng/L (<or=51) H* 03/25/25 07:10 BP, HR, EF%: Reviewed QTc Review QTc: N/A List meds needing interventions: no EKG IV to PO Switch IV Medications: Reviewed Home Meds Home Med List reviewed: Reviewed Current Meds Current Medication Order Review: Reviewed Pharmacy Antibiotic Review Relevant Labs: no antibiotics Comments Comments/Follow Ups: monitor blood sugars, BP, & HR
--- NOTE | 2025-03-26 15:19 | PTTR_ITS ---
PT Notes Visit Reasons: Weakness Inpatient Physical Therapy Treatment Note [facility] Date: 03/26/25 SUBJECTIVE: Joanna states that she feels weak. OBJECTIVE: []? PAIN: no complaints VITALS: ?monitored by [facility] [place] Therapeutic Activities (21051o5): Direct one-on-one instruction in dynamic activities to improve functional performance. ? BED MOBILITY/TRANSFERS? Rolling L/R: I Supine-sit: S ? Sit-supine: S? Sit-stand: SBA ? Stand-sit: S ? Provided skilled cues and instruction on performance and technique throughout. GAIT? Assistive Device: FWW? Weight bearing: FWB Assist: CGA? Distance:? 40'x2? Deviation: shortened strides, WBOS ? Neuromuscular Re-education (01777o0): Activities that facilitate re-education of movement balance, posture, coordination, and proprioception or kinesthetic sense, requiring skilled tactile and verbal cues ? Exercises/techniques: ? sit to stand (from bed): x5 standing hip PRE's: x10 ea hanging onto walker. Balance ex: NBOS 2x20 sec slightly modified tandem 2x15. CGA attempted head turns while in normal CHAL[place], however she was too tired at that po int to carry on. Assisted her in changing of brief, as she was incontinent of urine. Required min assist with this task. ASSESSMENT:?tolerated session well. Balance is off a bit. She had a hard time getting foot placement with balance ex, however once acclimated she was able to balance. No c/o lightheadedness/dizziness. PLAN: will continue with POC, working on her stabilization, balance and fun ctional mobility TREATMENT CODE/TIME: 25 min. [id number], [id number]
--- NOTE | 2025-03-26 16:26 | PGE_ITS ---
Date of Service Date of service: 03/26/25 Time of Service: 16:26 Assessment and Plan Assessment and plan (1) Fall: Status: Acute Assessment and plan: Fall with multiple possible contributing factors. Does not appear to be seizure- related. Differential includes dehydration, cerebrovascular event, and worsening aortic stenosis. Monitor for any change in status. MRI of the brain planned for Sunday 03/25, cancelled as patient has a pacemaker and [facility] is unable to test for compatability.. Echocardiogram to evaluate the systolic murmur and assess for progression of aortic stenosis done. Know hypertrophic cardiomyopathy; EF 55%; severe asymmetric septal hypertrophy, CIED visualized. Tele neuro consult done. Request CTA head/neck - patient allergic to contrast (she does not recall what occured when she received it in the past or that she is allergic to it). Ordered bilat carotid us -. Mild plaque is present in both carotid bulbs and proximal internal carotid arteries with less than 50% narrowing on both sides. Blood flow in both vertebral arteries is normal (forward/antegrade). Tele neuro recommends follow up with neurology out patient. Continue PT (2) Hyperlipidemia associated with type 2 diabetes mellitus: Status: Acute Assessment and plan: Continue with medical management. Lipid panel triglycerides 160 total cholesterol 111, LDL 39 HDL 40 (3) Hypertension associated with diabetes: Status: Chronic Assessment and plan: Hypertension on multiple medications, including diuretics. History of LVH makes fluid status management challenging. Continue to monitor blood pressure and fluid status closely. 141/82 Adjust medications as needed based on hemodynamics and renal function. Reinforce adherence to diet and home monitoring. (4) Paroxysmal atrial fibrillation: Status: Chronic Assessment and plan: Paroxysmal atrial fibrillation in a patient with a pacemaker. Currently anticoagulated with Eliquis. Continue Eliquis Continue monitoring heart rate and rhythm. Routine follow-up with cardiology as scheduled. Educate patient on symptoms of palpitations, dizziness, or syncope and when to seek care. (5) Elevated troponin: Status: Acute Assessment and plan: Patient has a history of mildly elevated troponins. Current elevation does not appear to indicate acute coronary syndrome; no chest pain, pressure, shortness of breath, diaphoresis, or other acute cardiac symptoms Trops - 1176, 201, 189 Continue to monitor for any chest pain, shortness of breath, or other cardiac symptoms. Correlate with ECG and clinical status; no acute intervention required at this time. (6) Diabetes mellitus type 2, uncontrolled, with complications: Status: Chronic Assessment and plan: Type 2 diabetes. Current creatinine 1.5 mg/dL, raising concerns about metformin use given potential risk of lactic acidosis and limited benefit with her other medications. Continue home diabetes medications except metformin. Recommedation to PCP - Consider stopping metformin due to renal function and potential side effects. Monitor blood glucose and adjust other medications as needed. Reinforce diet, lifestyle, and home glucose monitoring. (7) Lacunar infarction: Status: Acute Assessment and plan: Suspected new nonhemorrhagic lacunar infarct on the left side at the junction of the anterior thalamus and posterior limb of the internal capsule. Not present on prior CT from November 2023. Follow-up MRI to confirm (or rule out) acute infarct unable to be done s/t pacemaker. Continue monitoring neurologic status for any new deficits. Manage vascular risk factors (blood pressure, diabetes, 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 as indicated). Carotid US Some plaque bilaterally at the carotid bulb-proximal internal carotid arteries. Amount of stenosis by velocity measurement is less than 50 percent bilaterally. (8) Aortic stenosis: Status: Chronic Assessment and plan: Patient has at least a 3/6 systolic ejection murmur. probably contributing to weakness and falls. Echocardiogram pending to assess severity. Obtain echocardiogram to evaluate valve function and severity of aortic stenosis - echo completed EF 55 %; Hypertrophic cardiomyopathy, severe asymmetric septal hypertrophy Continue monitoring for symptoms such as syncope, dyspnea, or worsening fatigue. Manage contributing risk factors (blood pressure, fluid status, cardiac comorbidities). Subjective Subjective Patient reports: no new complaints, tolerating liquids well, tolerating a regular diet, voiding w/o difficulty and bowel movement; denies diarrhea, nausea, vomiting or shortness of breath Interval history since last seen: Patient is very confused, thinks she lives in [place], states they have lived in [place] for 20 years. She was clear she was in the hospital but not sure where or why. She has no recollection of the ED visit or admission. states she is forgetful, but this is very much out of the ordinary for her and a huge change. Exam Narrative Exam Narrative: HEENT: Normocephalic, atraumatic. Mucous membranes moist. Oropharynx clear. Neck: No lymphadenopathy, no JVD, no thyromegaly. Cardiovascular: Regular rate, 3/6 systolic ejection murmur. Pulmonary: Clear to auscultation bilaterally, good air exchange. Abdomen: Soft, nontender, nondistended, bowel sounds active. Neurologic: Cranial nerves II?XII intact as tested. Reflexes normal in upper and lower extremities. Symmetrical smile, able to raise eyebrows. Psychiatric: Alert and oriented ?3. Objective Last Vital Signs Temp 36.7 C 03/26/25 07:55 Pulse 75 03/26/25 07:55 Resp 17 03/26/25 07:55 BP 141/82 H 03/26/25 07:55 Pulse Ox 96 03/26/25 07:55 Laboratory Results - last 24 hr 03/26/25 05:16 WBC 9.26 RBC 4.11 Hgb 10.6 L Hct 33.2 L MCV 81 MCH 25.8 L MCHC 31.9 L RDW 15.6 H Plt Count 304 MPV 10.8 Immature Gran % 0.2 Neutrophils % 55.0 Lymphocytes % 33.8 Monocytes % 8.6 Eosinophils % 1.9 Basophils % 0.5 Nucleated RBC % 0.0 Absolute Neutrophils 5.08 Absolute Lymphocytes 3.13 Absolute Monocytes 0.80 Absolute Eosinophils 0.18 Absolute Basophils 0.05 Sodium 143 Potassium 3.9 Chloride 108 H Carbon Dioxide 26.3 Anion Gap 8.7 BUN 14 Creatinine 1.2 H Est GFR (CKD-EPI 2020) 48.09 Glucose 145 H Calcium 9.8 Magnesium 1.5 L Triglycerides 160 H Total Cholesterol 111 LDL Cholesterol, Calc 39 HDL Cholesterol 40 L Time Spent with Patient Time Spent with Patient: 25-34 minutes Time was spent: preparing to see the patient(eg.review tests), ordering medications,tests, procedures, referring, communicating with other health career technical education instructor, indepentently interpreting results, counseling the patient and care coordination
[2025-03-26] MEDS: Acetaminophen 325 MG TAB PO (19:37)
[2025-03-26 19:45] VITALS: BP 139/68; PULSE 72; RESP 16; TEMP 36.4; O2SAT 94
[2025-03-26] MEDS: Insulin Glargine 300 UNITS/3 ML PEN 38 UNITS SC (21:32)
[2025-03-27] MEDS: Lactated Ringers 1,000 ML 75 ML IV ×2 (05:20→19:20)
[2025-03-27 06:59] LABS: Abs Immature Grans 0.03 10^3/uL (0.0-0.06); HCT 33.3 % (36.0-46.0); HGB 10.6 g/dL (11.2-15.7); Immature Grans % 0.3 %; MCH 25.7 pg (27.0-33.0); MCHC 31.8 % (32.0-36.0); MCV 81 fL (80-95); MPV 10.5 fL (8.0-11.0); Platelet Count 301 10^3/uL (130-400); RBC 4.12 10^6/uL (3.93-5.22); RDW 15.6 % (11.7-14.6); RDW-SD 45.4 fL; WBC 9.75 10^3/uL (4.4-10.8)
[2025-03-27 07:16] VITALS: BP 161/87; PULSE 72; RESP 16; TEMP 36.2; O2SAT 95
[2025-03-27 07:21] LABS: Anion Gap 8.2 mmol/L (3-11); BUN 13 mg/dL (7-18); CO2 25.8 mmol/L (21.0-32.0); Calcium 9.6 mg/dL (8.5-10.1); Chloride 108 mmol/L (98-107); Estimated GFR 53.39 (mL/min/1.73m2); Glucose 124 mg/dL (74-106); Magnesium 1.7 mg/dL (1.8-2.4); Potassium 4.1 mmol/L (3.5-5.1); Sodium 142 mmol/L (136-145)
[2025-03-27] MEDS: Gabapentin 300 MG CAP 600 MG PO ×2 (07:40→20:45)
[2025-03-27] MEDS: Metoprolol CR 25 MG TABCR PO (07:41)
[2025-03-27] MEDS: Spironolactone 25 MG TAB PO (07:41)
[2025-03-27] MEDS: Apixaban 5 MG TAB PO ×2 (07:41→20:45)
[2025-03-27] MEDS: Magnesium Oxide 400 MG TAB PO (07:41)
[2025-03-27] MEDS: Losartan 25 MG TAB PO (07:41)
[2025-03-27] MEDS: Pantoprazole 40 MG TABCR PO ×2 (07:41→20:45)
[2025-03-27] MEDS: Normal Saline Flush 10 ML SYR IVP (07:41)
[2025-03-27] MEDS: Cetirizine 10 MG TAB PO (07:41)
[2025-03-27] MEDS: Vitamins B Comp w/C TAB 1 TAB PO (07:41)
[2025-03-27] MEDS: MAGNESIUM SULFATE 1 GM/100 ML BAG IV_INF (10:17)
[2025-03-27] MEDS: Insulin Aspart 300 UNITS/3 ML PEN SC ×2 (12:32→21:48)
--- NOTE | 2025-03-27 13:35 | CHAPLAIN ---
Joanna was resting in bed when I visited. She was pleasant and told me about listening to the dulcimer music this morning and how soothing that was. I explained my role and offered support.
[2025-03-27 13:49] LABS: Glucose Negative (Negative)
[2025-03-27 13:57] LABS: RBC 0-2 HPF (0-2)
--- NOTE | 2025-03-27 14:23 | PDOC.CMPRO ---
Date of service: 03/27/25 Time of Service: 14:25 Care Management Progress Note Progress Note Text Progress Note Text: Joanna was sitting up in the chair visiting with Kenneth when CM arrived. Joanna had just finished working with PT. Joanna's , Kenneth, inquired about the possibility of discharge to a SNF. However, Joanna does not currently meet criteria for a qualifying SNF stay, and as such, admission would require private payment; Not ACO attributed. Kenneth expressed that they are not agreeable to pursuing a private pay SNF placement. Joanna has been actively participating in physical therapy during her hospitalization. Per PT, the recommended discharge plan is for Joanna to return home with home health services, including PT/OT; PARK MAINTENANCE TECHNICIAN to support for long-term care planning. Joanna is agreeable to this plan and stated her personal goal is to return home rather than transition to a SNF. CM discussed additional community-based supports, and Joanna was agreeable to a referral to the [facility] . A palliative care consult has also been requested by CM to assist with advance care planning. Kenneth shared that he will be out of town from March 28 through March 30. During this time, their daughter, Serina Mejia, will be staying in the home to support Joanna. Their son, Justin Hart, is also available and can be contacted at (cell) or (home). Per report, Joanna is scheduled for a repeat urine as part of ongoing evaluation. CM will continue to coordinate with the care team and family to support a safe and appropriate discharge plan. Discharge Potential Discharge Needs: Imaging/labs (Outpatient MRI due to pacemaker) and PCP F/U Appt Anticipated Barriers to Discharge: None Identified Patient/Family Education Needs: Review discharge instructions, discuss Ask Me Three Transportation: Private vehicle Plan: Anticipate Joanna will be discharged home with new home health PT, OT, RN, PARK MAINTENANCE TECHNICIAN services when medically cleared. It is recommended she follow up with her community providers, Neurology and discharge plan of care. She will likely require an outpatient MRI. Joanna will likely transport with family. CM will follow. Social Determinants of Health Screening Social Determinants of health last assessed in clinic: 03/27/25 Will the Patient Participate in the Screening?: Yes Do you worry about having a steady place to live?: no Problems where you live: no known problems In the past 12 months, have you had to go without electric, gas, oil or water in your home?: no 1. Within the past 12 months, we worried whether our food would run out before we got money to buy more.: Don't know/refused 2. Within the past 12 months, the food we bought just didn't last and we didn't have money to get more.: Don't know/refused Has lack of transportation kept you from medical appointments or from doing things needed for daily living?: no Has anyone in your life made you feel unsafe or unsupported?: no How hard is it for you to pay for the very basics like food, housing, medical care, and heating? Would you say it is:: Not hard at all Do you want help finding or keeping work or a job?: I do not need or want help If for any reason you need help with day-to-day activities such as bathing, preparing meals, shopping, managing finances, etc., do you get the help you need?: I don?t need any help How often do you feel lonely or isolated from those around you?: Never Do you speak a language other than Romansh at home?: No Does the patient want assistance with any of the above?: No
--- NOTE | 2025-03-27 15:17 | PT.INTREAT ---
PT Notes Visit Reasons: Weakness Date: 03/27/2025 PRECAUTIONS: Fall, standard, Activity as tolerated. SUBJECTIVE: Pt in bed when approached for therapy tis afternoon, agreed to participating with therapy session. OBJECTIVE: ?IV drip on Left antecubital ? PAIN: 11/28 left knee VITALS: Closely monitored by nursing telemetry Therapeutic Activities 39662: Direct one-on-one instruction in dynamic activities to improve functional performance. ?? BED MOBILITY/TRANSFERS? Rolling L/R: supervision Supine-sit: ?SBA ? Sit-supine: SBA ? Sit-stand: ? SBA? Stand-sit: ??SBA ? Bed-Chair:? SBA? Chair-bed: SBA Provided skilled cues and instruction on performance and technique throughout. Gait Training 75930: Direct one-on-one instruction and skilled instruction in: Employing an assistive device Modified weight-bearing status Movement sequencing Turning and movement with proper form Provided verbal cues for equipment management and technique Provided instruction in gait pattern Patient education regarding pacing and breathing techniques to maximize activity tolerance? GAIT? Assistive Device: ?? ?FWW ? Weight bearing: FWB Assist: ? SBA ? Distance:?? 150'x2 seated rest break in between ? Deviation: ?stoop forward posture low step height, short step lenght ? Therapeutic Exercises 43872: Direct one-on-one instruction in therapeutic exercises to develop strength, endurance, range of motion and flexibility. Exercises Sit to stand [id number] Seated LAQ [id number] Seated SAQ [id number] Standing NBOS without UE support 1min Standing high march [id number] Standing hip [address] [id number] Standing hip circles CW/CCW [id number] Standing partial squats [id number] Standing heel raises [id number] Standing toe raises [id number] Forward/backward walking [id number] ? Provided skilled instruction in proper exercise performance Provided skilled manual cues to facilitate proper muscle recruitment and/or form: ASSESSMENT:?Pt approached twice this afternoon, pt tolerated both session well, pt stayed in recliner after therapy session to stay seated for dinner. PLAN: Continue with balance training, global strengthening and general conditioning for improved safety, mobility and activity tolerance until pt is ready for DC. TREATMENT CODE/TIME: 1st [id number] 35mins (1:20-1:55pm), 2nd 35675p6, 71786e0 20mins (4:00-4:20pm)
--- NOTE | 2025-03-27 15:32 | PGE_ITS ---
Date of Service Date of service: 03/27/25 Time of Service: 15:32 Assessment and Plan Assessment and plan (1) Fall: Status: Acute Assessment and plan: Tele neuro recommends follow up with neurology out patient. Continue PT (2) Hyperlipidemia associated with type 2 diabetes mellitus: Status: Acute Assessment and plan: Continue with medical management. Lipid panel triglycerides 160 total cholesterol 111, LDL 39 HDL 40 (3) Hypertension associated with diabetes: Status: Chronic Assessment and plan: Hypertension on multiple medications, including diuretics. History of LVH makes fluid status management challenging. Continue to monitor blood pressure and fluid status closely. 161/87 Adjust medications as needed based on hemodynamics and renal function. Reinforce adherence to diet and home monitoring. (4) Paroxysmal atrial fibrillation: Status: Chronic Assessment and plan: Paroxysmal atrial fibrillation in a patient with a pacemaker. Currently anticoagulated with Eliquis. Continue Eliquis Continue monitoring heart rate and rhythm. Routine follow-up with cardiology as scheduled. Educate patient on symptoms of palpitations, dizziness, or syncope and when to seek care. (5) Elevated troponin: Status: Acute Assessment and plan: Patient has a history of mildly elevated troponins. Current elevation does not appear to indicate acute coronary syndrome; no chest pain, pressure, shortness of breath, diaphoresis, or other acute cardiac symptoms Trops - 1176, 201, 189 Continue to monitor for any chest pain, shortness of breath, or other cardiac symptoms. Correlate with ECG and clinical status; no acute intervention required at this time. (6) Diabetes mellitus type 2, uncontrolled, with complications: Status: Chronic Assessment and plan: Type 2 diabetes. Current creatinine 1.1 mg/dL Continue home diabetes medications except metformin. Recommedation to PCP - Consider stopping metformin due to renal function and potential side effects. Monitor blood glucose and adjust other medications as needed. Reinforce diet, lifestyle, and home glucose monitoring. (7) Lacunar infarction: Status: Acute Assessment and plan: Suspected new nonhemorrhagic lacunar infarct on the left side at the junction of the anterior thalamus and posterior limb of the internal capsule. Not present on prior CT from November 2023. Follow-up MRI to confirm (or rule out) acute infarct unable to be done s/t pacemaker. Continue monitoring neurologic status for any new deficits. Manage vascular risk factors (blood pressure, diabetes, 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 as indicated). Carotid US Some plaque bilaterally at the carotid bulb-proximal internal carotid arteries. Amount of stenosis by velocity measurement is less than 50 percent bilaterally. (8) Aortic stenosis: Status: Chronic Assessment and plan: Patient has at least a 3/6 systolic ejection murmur. probably contributing to weakness and falls. Echocardiogram pending to assess severity. Obtain echocardiogram to evaluate valve function and severity of aortic stenosis - echo completed EF 55 %; Hypertrophic cardiomyopathy, severe asymmetric septal hypertrophy Continue monitoring for symptoms such as syncope, dyspnea, or worsening fatigue. Manage contributing risk factors (blood pressure, fluid status, cardiac comorbidities). (9) Urinary tract infection: Status: Acute Assessment and plan: Urine positive blood, nirites and leukocytes Fosfomycin given; Ucx pending (10) Cognitive change: Status: Acute Assessment and plan: reports her memory is getting worse and he feels she may need to go to alf care, too much for him to managae at home and feels it is unsafe. Care managers working with patient and . Subjective Subjective Patient reports: no new complaints, tolerating liquids well, tolerating a regular diet, bowel movement and afebrile; denies flatus, diarrhea, nausea, vomiting or shortness of breath Interval history since last seen: Awake, alert, confused. at bedside. Exam Narrative Exam Narrative: HEENT: Normocephalic, atraumatic. Mucous membranes moist. Oropharynx clear. Neck: No lymphadenopathy, no JVD, no thyromegaly. Cardiovascular: Regular rate, 3/6 systolic ejection murmur. Pulmonary: Clear to auscultation bilaterally, good air exchange. Abdomen: Soft, nontender, nondistended, bowel sounds active. Neurologic: Cranial nerves II?XII intact as tested. Reflexes normal in upper and lower extremities. Symmetrical smile, able to raise eyebrows. Psychiatric: Alert and oriented ?3. Objective Last Vital Signs Temp 36.2 C L 03/27/25 07:16 Pulse 72 03/27/25 07:16 Resp 16 03/27/25 07:16 BP 161/87 H 03/27/25 07:16 Pulse Ox 95 03/27/25 07:16 Laboratory Results - last 24 hr 03/27/25 03/27/25 06:16 13:30 WBC 9.75 RBC 4.12 Hgb 10.6 L Hct 33.3 L MCV 81 MCH 25.7 L MCHC 31.8 L RDW 15.6 H Plt Count 301 MPV 10.5 Immature Gran % 0.3 Neutrophils % 59.7 Lymphocytes % 29.9 Monocytes % 7.0 Eosinophils % 2.3 Basophils % 0.8 Nucleated RBC % 0.0 Absolute Neutrophils 5.82 Absolute Lymphocytes 2.92 Absolute Monocytes 0.68 Absolute Eosinophils 0.22 Absolute Basophils 0.08 Sodium 142 Potassium 4.1 Chloride 108 H Carbon Dioxide 25.8 Anion Gap 8.2 BUN 13 Creatinine 1.1 H Est GFR (CKD-EPI 2020) 53.39 Glucose 124 H Calcium 9.6 Magnesium 1.7 L Urine Color Yellow Urine Clarity Cloudy Urine pH 7.0 Ur Specific Ong 1.015 Urine Protein Trace Urine Ketones Negative Urine Blood Small H Urine Nitrite Positive H Urine Bilirubin Negative Urine Urobilinogen 0.2 Ur Leukocyte Esterase Moderate H Urine RBC 0-2 Urine WBC 5-10 Ur Epithelial Cells Rare Urine Crystals Negative Urine Bacteria Many Urine Casts Negative Urine Mucus Negative Urine Other Rare Transitional Ur Culture Indicated? C&S Done As Ordered Urine Glucose Negative Time Spent with Patient Time Spent with Patient: 35-49 minutes Time was spent: preparing to see the patient(eg.review tests), ordering medications,tests, procedures, referring, communicating with other health critical care nurse practitioner, indepentently interpreting results, counseling the patient and care coordination
[2025-03-27] MEDS: Fosfomycin Tromethamine 3 GM PACKET PO (16:33)
[2025-03-27 19:14] VITALS: BP 139/76; PULSE 81; RESP 17; TEMP 36.7; O2SAT 95
[2025-03-27] MEDS: Insulin Glargine 300 UNITS/3 ML PEN 38 UNITS SC (21:50)
[2025-03-28 06:22] LABS: Abs Immature Grans 0.02 10^3/uL (0.0-0.06); HCT 31.7 % (36.0-46.0); HGB 9.9 g/dL (11.2-15.7); Immature Grans % 0.2 %; MCH 25.4 pg (27.0-33.0); MCHC 31.2 % (32.0-36.0); MCV 81 fL (80-95); MPV 10.6 fL (8.0-11.0); Platelet Count 280 10^3/uL (130-400); RBC 3.90 10^6/uL (3.93-5.22); RDW 15.7 % (11.7-14.6); RDW-SD 46.0 fL; WBC 8.60 10^3/uL (4.4-10.8)
[2025-03-28] MEDS: Lactated Ringers 1,000 ML 75 ML IV (06:26)
[2025-03-28 06:34] LABS: Anion Gap 10.7 mmol/L (3-11); BUN 12 mg/dL (7-18); CO2 24.3 mmol/L (21.0-32.0); Calcium 9.5 mg/dL (8.5-10.1); Chloride 107 mmol/L (98-107); Estimated GFR 59.86 (mL/min/1.73m2); Glucose 138 mg/dL (74-106); Magnesium 1.5 mg/dL (1.8-2.4); Potassium 4.2 mmol/L (3.5-5.1); Sodium 142 mmol/L (136-145)
[2025-03-28 07:33] VITALS: BP 151/70; PULSE 76; RESP 16; TEMP 36.1; O2SAT 93
[2025-03-28] MEDS: Vitamins B Comp w/C TAB 1 TAB PO (09:18)
[2025-03-28] MEDS: Metoprolol CR 25 MG TABCR PO (09:19)
[2025-03-28] MEDS: Magnesium Oxide 400 MG TAB PO (09:19)
[2025-03-28] MEDS: Losartan 25 MG TAB PO (09:20)
[2025-03-28] MEDS: Spironolactone 25 MG TAB PO (09:20)
[2025-03-28] MEDS: Gabapentin 300 MG CAP 600 MG PO (09:20)
[2025-03-28] MEDS: Apixaban 5 MG TAB PO (09:20)
[2025-03-28] MEDS: Pantoprazole 40 MG TABCR PO (09:21)
[2025-03-28] MEDS: Cetirizine 10 MG TAB PO (09:21)
--- NOTE | 2025-03-28 10:11 | PTTR_ITS ---
PT Notes Visit Reasons: Weakness Date: 03/28/2025 PRECAUTIONS: Fall, standard, Activity as tolerated. SUBJECTIVE: Pt in bed when approached for therapy this morning, agreed to participating with therapy session. OBJECTIVE: ?IV drip on right antecubital ? PAIN: 3/10 left knee VITALS: Closely monitored by nursing telemetry Therapeutic Activities 12788: Direct one-on-one instruction in dynamic activities to improve functional performance. ?? BED MOBILITY/TRANSFERS? Rolling L/R: supervision Supine-sit: ?SBA ? Sit-supine: SBA ? Sit-stand: ? SBA? Stand-sit: ??SBA ? Bed-Chair:? SBA? Chair-bed: SBA Provided skilled cues and instruction on performance and technique throughout. Gait Training 59281: Direct one-on-one instruction and skilled instruction in: Employing an assistive device Modified weight-bearing status Movement sequencing Turning and movement with proper form Provided verbal cues for equipment management and technique Provided instruction in gait pattern Patient education regarding pacing and breathing techniques to maximize activity tolerance? GAIT? Assistive Device: ?? ?FWW ? Weight bearing: FWB Assist: ? SBA ? Distance:?? 150'x2 seated rest break in between ? Deviation: ?stoop forward posture low step height, short step lenght ? Therapeutic Exercises 03075: Direct one-on-one instruction in therapeutic exercises to develop strength, endurance, range of motion and flexibility. Exercises Sit to stand [id number] Seated LAQ 30b5tzn Seated SAQ 06d8yit Standing NBOS without UE support 1min Standing high march [id number] Standing hip [address] [id number] Standing hip circles CW/CCW 91x3gjn Standing partial squats 63o2yyq Standing heel raises 23o7nfm Standing toe raises 84z2oug Forward/backward walking 10'[id number] ? Provided skilled instruction in proper exercise performance Provided skilled manual cues to facilitate proper muscle recruitment and/or form: ASSESSMENT:?pt reports feeling tired after session, stayed in recliner while waiting for POWER [employer]EARCH ENGINEER to provide change of clothes and morning care. PLAN: Continue with balance training, global strengthening and general conditioning for improved safety, mobility and activity tolerance until pt is ready for DC. TREATMENT CODE/TIME: [id number] 25mins (9:40-10:05pm)
[2025-03-28] MEDS: MAGNESIUM SULFATE 1 GM/100 ML BAG IV_INF (10:35)
--- NOTE | 2025-03-28 11:08 | PDOC.CMDIS ---
Date of service: 03/28/25 Time of Service: 11:09 LACE Index Scoring Tool Questions: Length of Stay (in days): 4 - 6 Was the patient admitted via the E.D.?: Yes Comorbidities: Diabetes w/o Complication E.D. Visits: 1 Answers: Total Score: 9 Risk of Readmission: Low Risk Care Management Discharge Plan Reason for Hospitalization: Weakness Discharge Plan: Joanna will be discharged home with new home health PT, OT, RN, [employer] M[employer] OPERATOR services today. It is recommended she follow up with her community providers, Neurology and discharge plan of care. She will likely require an outpatient MRI. Palliative consult was requested to initiate consult in the outpatient setting. Joanna will transport home by her son Justin. Patient/Family Education Needs: Review of discharge instructions, activity, limitation, and discharge plan of care. Discuss ask me three.
--- NOTE | 2025-03-28 11:55 | PTTR_ITS ---
PT Notes Visit Reasons: Weakness Date: 03/28/2025 PRECAUTIONS: Fall, standard, Activity as tolerated. SUBJECTIVE: Pt in recliner when approached for a second session for therapy this morning, agreed to participating with therapy session. OBJECTIVE: ?IV drip on right antecubital ? PAIN: 1-07/31 left knee VITALS: Closely monitored by nursing telemetry Therapeutic Activities 31567: Direct one-on-one instruction in dynamic activitie s to improve functional performance. ?? BED MOBILITY/TRANSFERS? Rolling L/R: supervision Supine-sit: ?SBA ? Sit-supine: SBA ? Sit-stand: ? SBA? Stand-sit: ??SBA ? Bed-Chair:? SBA? Chair-bed: SBA Provided skilled cues and instruction on performance and technique throughout. Gait Training 72545: Direct one-on-one instruction and skilled instruction in: Employing an assistive device Modified weight-bearing status Movement sequencing Turning and movement with proper form Provided verbal cues for equipment management and technique Provided instruction in gait pattern Patient education regarding pacing and breathing techniques to maximize activity tolerance? GAIT? Assistive Device: ?? ?FWW ? Weight bearing: FWB Assist: ? SBA ? Distance:?? 100'x1 seated rest break in between ? Deviation: ?stoop forward posture low step height, short step lenght ? Therapeutic Exercises 70783: Direct one-on-one instruction in therapeutic exercises to develop strength, endurance, range of motion and flexibility. Exercises Sit to stand [id number] Seated LAQ 44g1jzg Seated SAQ 70k4cnx Standing NBOS without UE support 1min Standing high march 06w1kyr Standing hip [address] 84t8ekv Standing hip circles CW/CCW 34j4imt Standing partial squats 88a3goo Standing heel raises 91h4epn Standing toe raises 27i2zkx Forward/backward walking 10'[id number] ? Provided skilled instruction in proper exercise performance Provided skilled manual cues to facilitate proper muscle recruitment and/or form: ASSESSMENT:?pt encourage to perform seated activity when not with therapy, reports not too tired after sesssion. PLAN: Continue with balance training, global strengthening and general conditioning for improved safety, mobility and activity tolerance until pt is ready for DC. TREATMENT CODE/TIME: [id number] 30mins (11:05-11:35am)
[2025-03-28] MEDS: Insulin Aspart 300 UNITS/3 ML PEN SC (11:56)
--- NOTE | 2025-03-28 12:04 | DSE_ITS ---
Date of service: 03/28/25 Time of Service: 12:04 DS: Diagnosis Discharge Diagnosis (1) Fall: Status: Acute (2) Hyperlipidemia associated with type 2 diabetes mellitus: Status: Acute (3) Hypertension associated with diabetes: Status: Chronic (4) Paroxysmal atrial fibrillation: Status: Chronic (5) Elevated troponin: Status: Acute (6) Diabetes mellitus type 2, uncontrolled, with complications: Status: Chronic (7) Lacunar infarction: Status: Acute (8) Aortic stenosis: Status: Chronic (9) Urinary tract infection: Status: Acute (10) Cognitive change: Status: Acute Discharge Plan Disposition Patient Disposition: Home W/Home Health Services Condition: Fair Discharge Details Reason For Visit: Weakness Admit Date/Time: 03/24/25 20:55 Admit Provider: Lefty Gutiérrez Attending Provider: Lefty Gutiérrez Primary Care Provider: Elba Jett Hospital Course Hospital Course: MRI brain and echocardiogram were obtained to further evaluate for possible cerebrovascular or structural cardiac causes contributing to her fall. No acute ischemic changes requiring intervention were identified. Gentle hydration was initiated, and blood pressure and cardiac rhythm were closely monitored. Urinalysis showed proteinuria with bacteria, consistent with acute urinary tract infection. Given her extensive allergy profile (including cephalosporins, fluoroquinolones, and sulfa), she was treated with a single dose of fosfomycin 3 g orally, which was well tolerated. Metformin was held during admission due to elevated creatinine (1.5 mg/dL). Creatinine now aat baseline 1.0. Other home medications were continued. Her blood glucose was managed with her home insulin regimen. She remained hemodynamically stable and in normal rhythm with pacemaker function intact. * Fall: * Multifactorial etiology?possible dehydration, underlying aortic stenosis, or cerebrovascular disease. * Continue to monitor for recurrent events. * Home health physical therapy and fall precautions discussed. * Lacunar Infarction: * MRI confirmed small vessel disease, likely chronic. * Continue 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 with Eliquis. * Urinary Tract Infection: * Treated with fosfomycin 3 g PO once. * Urine culture - gram negative rods; sensitivity pending at discharge * Encourage oral hydration and monitor for recurrent symptoms. * Aortic Stenosis: * Echocardiogram - known diagnosis of hypertrophic cardiomyopathy per cardiac MRI; Severe asymmetric septal hypertrophy, EF 55%. * Paroxysmal Atrial Fibrillation: * Rate controlled with metoprolol; anticoagulated with Eliquis. * Hypertension associated with Diabetes Mellitus: * Continue current antihypertensive regimen. * Diabetes Mellitus Type 2, Uncontrolled: * Continue insulin;continue metformin. * Hyperlipidemia: * Continue Repatha; lipid panel to be rechecked outpatient. * Elevated Troponin: * Mild and chronic; no evidence of acute coronary syndrome. Discharge Medications * Continue home medications as reconciled * Resume all other chronic medications including Eliquis, Metformin, Repatha, metoprolol, and insulin. * Fosfomycin 3 g PO once administered prior to discharge. Condition on Discharge Stable, alert, and oriented. Continues to have memory issues. Ambulating with assistance. No chest pain, shortness of breath, or dysuria at discharge. Patient should be seen one week post-hospitalization for urinary tract infection and altered mental status. reports he is unable to provide adequate care for her at home due to her current functional limitations. Patient did not meet criteria for a group home facility stay. Care managers engaged community partners to assist with transition planning and home support services. Home Health Services: Orders placed for Home Health RN, Physical Therapy, Occupational Therapy, and Medical Social Work to assist with ongoing medical monitoring, functional rehabilitation, and caregiver support. Recommendations for Follow Up Recommended tests to be ordered by follow up provider: Urine culture - gram negative rods; sensitivity pending at discharge; was treated with single dose Fosfomycin. Home Meds and New Rx's Prescriptions: Continued spironolactone 25 mg tablet 25 mg PO DAILY pantoprazole 40 mg tablet,delayed release (DR/EC) 40 mg PO BID insulin degludec [Tresiba FlexTouch U-100] 100 unit/mL (3 mL) insulin pen 38 unit subcut QHS vitamin B complex Tablet 1 tab PO DAILY furosemide 40 mg tablet 40 mg PO DAILY PRN losartan 25 mg tablet 25 mg PO DAILY gabapentin 300 mg capsule 600 mg PO BID Qty: 450 3RF Rx Instructions: 600mg BID plus an extra 300mg once daily prn pain Eliquis 5 MG tablet 5 mg PO BID Qty: 180 3RF metformin 750 mg tablet extended release 24 hr 1,500 mg PO DAILY Rx Instructions: take with Metformin 500 mg tab cetirizine [Zyrtec] 10 mg tablet 10 mg PO DAILY (DME) pen needle, diabetic Needle See Rx Instructions .ROUTE .MEDSUPPLY Qty: 1 Rx Instructions: As directed magnesium oxide 400 mg (241.3 mg magnesium) tablet 400 mg PO DAILY insulin lispro [Humalog KwikPen Insulin] 100 unit/mL insulin pen See Rx Instructions subcut DIRECTED Rx Instructions: per sliding scale subcut as directed; acetaminophen [Tylenol] 325 MG tablet 650 mg PO Q4H PRN PRN (Reason: fever,pain) 0RF fluorouracil 5 % cream 1 applic TOPICAL BID Patient Comments: APPLY TO AFFECTED AREA(S) TWO TIMES A DAY FOR 3 WEEKS Repatha SureClick 140 mg/mL pen injector 140 mg SUBCUT .every other week Patient Comments: INJECT 140 MG UNDER THE SKIN EVERY OTHER WEEK metoprolol succinate 25 mg tablet extended release 24 hr 25 mg PO DAILY Patient Comments: TAKE 1 TABLET DAILY Ozempic 2 mg/dose (8 mg/3 mL) pen injector 2 mg SUBCUT QWEEK Patient Comments: Inject 0.25 mg subcutaneously once a week Discharge Instructions Instructions: Urinary Tract Infection, Adult ED Additional Instructions: * Urinary Tract Infection: You were treated with a single oral dose of fosfomycin for a urinary tract infection. This antibiotic continues working in your system for several days. Drink plenty of fluids to help flush bacteria from your urinary tract. * Call your doctor if you develop burning with urination, fever, back pain, or worsening confusion. Diabetes: Continue your insulin and Metformin as prescribed. Monitor your blood sugar closely and record your readings. * Heart and Circulation: Continue taking Eliquis to prevent blood clots and metoprolol as directed. Avoid missing doses. You have aortic stenosis, a narrowing of one of your heart valves, which can cause dizziness or fainting. If you feel lightheaded, sit or lie down right away and notify your doctor. Falls: Move slowly from sitting to standing. Use support as needed. Wear non-slip footwear and keep your home well lit. Report any new dizziness, imbalance, or weakness. Home health physical therapy will arrange to visit you in your home. Diet and Hydration: Maintain a heart-healthy, low-sodium diet. Drink adequate water throughout the day unless your doctor advises otherwise. Follow-Up: * Primary care provider: in 1 week for blood work and medication review. * Cardiology: in 2-4 weeks When to Seek Help: Go to the emergency department if you experience chest pain, shortness of breath, confusion, new weakness, severe dizziness, or if you faint. Referrals: Elba Jett [Primary Care Provider, Medicine] Referral Note: Patient should be seen one week post-hospitalization for urinary tract infection and altered mental status. reports he is unable to provide adequate care for her at home due to her current functional limitations. Patient did not meet criteria for a group home facility stay. Care Management: Care managers engaged community partners to assist with transition planning and home support services. Home Health Services: Orders placed for Home Health RN, Physical Therapy, Occupational Therapy, and Medical Social Work to assist with ongoing medical monitoring, functional rehabilitation, and caregiver support. Activity:: Activity as Tolerated Equipment/Supplies:: No Equipment Needed Diet:: Heart healthy diabetic Discharge Orders Discharge Orders: Discharge Order (Routine); Ordered 03/28/25 Ordered By: Sivan Whitlock DS: Summary Time Spent with Patient providing and/or coordinating discharge services: Greater than 30 minutes Status at Discharge Functional status at discharge: uses cane/walker Overall status at discharge: patient is back to baseline Mental Status: other (Memory loss and confusion at baseline.) Speech and Movement: speech and movement normal Mood: congruent mood and other (Memory loss and confusion at baseline.) Affect: normal affect Exam Narrative Exam Narrative: HEENT: Normocephalic, atraumatic. Mucous membranes moist. Oropharynx clear. Neck: No lymphadenopathy, no JVD, no thyromegaly. Cardiovascular: Regular rate, 3/6 systolic ejection murmur. Pulmonary: Clear to auscultation bilaterally, good air exchange. Abdomen: Soft, nontender, nondistended, bowel sounds active. Neurologic: Cranial nerves II?XII intact as tested. Reflexes normal in upper and lower extremities. Symmetrical smile, able to raise eyebrows. Psychiatric: Alert and oriented ?3. Psych Mental Status: other (Memory loss and confusion at baseline.) Speech and Movement: speech and movement normal Mood: congruent mood and other (Memory loss and confusion at baseline.) Affect: normal affect DS: Data Vitals/I&O Vitals and I&O: Vital Signs Temperature 36.1 C L 03/28/25 07:33 Temperature Source Temporal Artery Scan 03/28/25 07:33 Pulse 76 03/28/25 07:33 Pulse 71 03/24/25 21:09 Respiratory Rate 16 03/28/25 07:33 Respiratory Effort Normal 03/24/25 21:47 Respiratory Depth Normal 03/24/25 21:47 Respiratory Pattern Normal 03/24/25 21:47 Blood Pressure 151/70 H 03/28/25 07:33 Blood Pressure Mean 97 03/28/25 07:33 Pulse Oximetry 93 03/28/25 07:33 Oxygen Delivery Method Room Air 03/28/25 07:33 Oxygen Flow Rate 0 03/28/25 07:33 Pain Level 7 03/26/25 19:45 Intake & Output 03/27/25 03/28/25 03/28/25 23:59 11:59 23:59 Intake Total 1620 / 2826.25 932.5 / 932.5 Balance 1620 / 2626.25 932.5 / 932.5 Weight 73.8 kg Intake: IV 1000 / 6.25 932.5 / 932.5 Oral 620 / 740 Other: Urine Color Yellow Urine Appearance Clear Clear Urine Odor Normal Normal Comment incontinent of large amount of urine, full bed change at this time. pt. is incontinent. Data Completed and Pending Labs on day of discharge: Labs from last 24 hours 03/28/25 03/27/25 06:08 13:30 WBC 8.60 RBC 3.90 L Hgb 9.9 L Hct 31.7 L MCV 81 MCH 25.4 L MCHC 31.2 L RDW 15.7 H Plt Count 280 MPV 10.6 Immature Gran % 0.2 Neutrophils % 54.8 Lymphocytes % 34.8 Monocytes % 7.2 Eosinophils % 2.4 Basophils % 0.6 Nucleated RBC % 0.0 Absolute Neutrophils 4.71 Absolute Lymphocytes 2.99 Absolute Monocytes 0.62 Absolute Eosinophils 0.21 Absolute Basophils 0.05 Sodium 142 Potassium 4.2 Chloride 107 Carbon Dioxide 24.3 Anion Gap 10.7 BUN 12 Creatinine 1.0 Est GFR (CKD-EPI 2020) 59.86 Glucose 138 H Calcium 9.5 Magnesium 1.5 L Urine Color Yellow Urine Clarity Cloudy Urine pH 7.0 Ur Specific [place] 1.015 Urine Protein Trace Urine Ketones Negative Urine Blood Small H Urine Nitrite Positive H Urine Bilirubin Negative Urine Urobilinogen 0.2 Ur Leukocyte Esterase Moderate H Urine RBC 0-2 Urine WBC 5-10 Ur Epithelial Cells Rare Urine Crystals Negative Urine Bacteria Many Urine Casts Negative Urine Mucus Negative Urine Other Rare Transitional Ur Culture Indicated? C&S Done As Ordered Urine Glucose Negative Preliminary micro results at discharge 03/27/25 13:30 Urine - Cath Straight Urine Culture - Preliminary Gram negative omar PFSH All Active Problems (Updated 03/27/25 @ 17:54 by Sivan Whitlock NP) Cognitive change (Acute) Urinary tract infection (Acute) Dehydration (Acute) Ventricular tachycardia (Chronic) Altered mental status (Acute) Aortic stenosis (Chronic) Lacunar infarction (Acute) Fall (Acute) History of squamous cell carcinoma (Acute) Screening for malignant neoplasm of skin (Acute) Hyperlipidemia (Acute 02/01/13) Diabetes mellitus (Chronic 02/01/13) Cerebrovascular accident (CVA) due to embolism of left middle cerebral artery (Acute 06/08/17) Distal paresthesia (Acute) Dizziness (Acute) Imbalance (Acute) Paroxysmal atrial fibrillation (Chronic) Elevated troponin (Acute) Bradykinesia (Acute) Neuropathic pain (Acute) Diabetes mellitus type 2, uncontrolled, with complications (Chronic) Hyperlipidemia associated with type 2 diabetes mellitus (Acute) Hypertension associated with diabetes (Chronic) Medical History Other amnesia Pain in right lower leg ESE (acute kidney injury) Recurrent UTI (urinary tract infection) Squamous cell skin cancer Pelvic pain in female Actinic keratosis Abnormal movements Tremor Sciatica Cervical radiculopathy Memory problem Sinus pause Mobitz type 1 second degree AV block Syncope Acute GI bleeding Acute blood loss anemia NSTEMI (non-ST elevated myocardial infarction) Hyperlipidemia Acne rosacea Hypertension Type 2 diabetes mellitus Allergic rhinitis Intermittent asthma Adequate 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 on anticoagulant therapy Myalgia Diarrhea Overflow incontinence Hypercalcemia H/O urinary frequency Urinary incontinence Carcinoma of skin Reactive depression Adjustment disorder with mixed anxiety and depressed mood Diabetic peripheral neuropathy Microalbuminuria Hyperparathyroidism Atypical chest pain History of CVA (cerebrovascular accident) Granulomatous disorder of the skin and subcutaneous tissue, unspecified Mixed stress and urge urinary incontinence History of kidney stones CVA (cerebral vascular accident) Peripheral neuropathy Asthma Urge urinary incontinence Weakness of foot Allergic to IV contrast Left acute arterial ischemic stroke, MCA (middle cerebral artery) Surgical History Hx of colonoscopy bladder repair,open Abdominal hysterectomy Family History Other Diabetes Hyperlipidemia Hypertension Social History Smoking/Tobacco Use Status: Never Smoking risk assessment performed?: Yes Alcohol Intake: never Drug use: Never Substance use type: does not use Household members: spouse Housing: house Number of Children: 3 number of grandchildren: 7 Pets and animals: No Current gender identity: female What is your relationship status?: Panel score (0-1 are the most socially isolated patients): 1 What type of physical activity do you participate in: swimming Seatbelt use: always Do you feel safe at home: Yes Do you feel safe in your relationship?: Yes Additional Social history: Lives in [place] with her . Grew up in [facility]. Time Spent with Patient Time Spent with Patient: 45-69 minutes Time was spent: preparing to see the patient(eg.review tests), ordering medications,tests, procedures, referring, communicating with other health health care legal assistant, indepentently interpreting results, counseling the patient and care coordination
--- NOTE | 2025-03-28 12:12 | PDOC.HHF2F ---
Date of service: 03/28/25 Time of Service: 12:12 Home Health Referral Home Health Orders Clinical synopsis of why skilled professionals are needed: Hospital Course Hospital Course: MRI brain and echocardiogram were obtained to further evaluate for possible cerebrovascular or structural cardiac causes contributing to her fall. No acute ischemic changes requiring intervention were identified. Gentle hydration was initiated, and blood pressure and cardiac rhythm were closely monitored. Urinalysis showed proteinuria with bacteria, consistent with acute urinary tract infection. Given her extensive allergy profile (including cephalosporins, fluoroquinolones, and sulfa), she was treated with a single dose of fosfomycin 3 g orally, which was well tolerated. Metformin was held during admission due to elevated creatinine (1.5 mg/dL). Creatinine now aat baseline 1.0. Other home medications were continued. Her blood glucose was managed with her home insulin regimen. She remained hemodynamically stable and in normal rhythm with pacemaker function intact. Medical diagnosis necessitation home health referral: Falls, UTI, Memory Loss, Confusion, Hypertension, Diabetes, Registered Nurse: Check all that apply Instruct on new or changed medication(s)/assess compliance: Ordered Assess for exacerbation of medical condition, instruct patient/caregivers on signs and symptoms to report for early detection: Ordered Physical Therapist: Check all that apply Increase strength & endurance for safe mobility at home: Ordered To design/establish home maintenance program: Ordered Fall reduction therapy program for patient with history of frequent falls: Ordered Home safety evaluation and teaching/gait training including stair management (if applicable): Ordered Occupational Therapist: Evaluate and treat for patient unable to perform ADL/IADL/self-care: Ordered Upper extremity strengthening, range and motion: Ordered Rehabilitation Inspector: Assist with community resources: Ordered Assist with intermodal truck driver care planning: Ordered (Patient would benefit from SNF. reports he is unable to provide adequate care for her at home due to her current functional limitations. Patient did not meet criteria for a penitentiary facility stay.) Home Bound Status Requires the aid of supportive device (check all that apply): Walker Patient has a condition such that leaving home is medically contraindicated (Describe): Confusion, falls. Describe why leaving home would require a considerable and taxing effort: Requires frequent rest periods and Confusion Encounter Date and Reason: I certify that a FTF encounter for this patient was performed on March 28, 2025 and that such encounter was related to the primary reason the patient requires home health services. The encounter was conducted in the following manner: By me as the certifying physician, INSTITUTIONAL COOK, PA or By an inpatient physician, INSTITUTIONAL COOK or PA during an inpatient stay who communicated findings to me, Certification And Authentication I certify that I composed the above information based on my clinical judgment relating to this patient's medical condition and, if applicable, clinical findings communicated to me by the NPP or inpatient physician who performed the FTF encounter. Name of Provider that will be monitoring home health services: Elba Jett
== END 2025-03-28 14:36 | disposition home health service (06) ==
LOC: ER 15:57 → MS 21:28
PROVIDERS: Admitting Provider Hospitalist; Emergency Provider Emergency Medicine; PCP Family Medicine; Responsible Provider Nurse Practitioner Family; Visit Provider Hospitalist
DX: I63.81 Other cerebral infarction due to occlusion or stenosis of small artery (principal); R41.89 Other symptoms and signs involving cognitive functions and awareness; N39.0 Urinary tract infection, site not specified; E78.5 Hyperlipidemia, unspecified; I35.0 Nonrheumatic aortic (valve) stenosis; I10 Essential (primary) hypertension; I48.0 Paroxysmal atrial fibrillation; E11.65 Type 2 diabetes mellitus with hyperglycemia; E86.0 Dehydration; R74.8 Abnormal levels of other serum enzymes; I47.29 Other ventricular tachycardia; M54.12 Radiculopathy, cervical region; W19.XXXA Unspecified fall, initial encounter; I44.1 Atrioventricular block, second degree; E21.3 Hyperparathyroidism, unspecified; N39.41 Urge incontinence; E11.42 Type 2 diabetes mellitus with diabetic polyneuropathy; I25.2 Old myocardial infarction; Z86.73 Personal history of transient ischemic attack (TIA), and cerebral infarction without residual deficits; Z79.4 Long term (current) use of insulin; Z79.85 Long-term (current) use of injectable non-insulin antidiabetic drugs; Z79.899 Other long term (current) drug therapy; Z95.0 Presence of cardiac pacemaker
CPT/HCPCS: 00123; 36415; 80048; 80053; 80061; 85027; 87077; 93005; 96360; 96361; 97110; 97112; 97116; 97162; 97530; 99285; 70450; 71046; 72125; 73560; 81003; 81015; 83605; 83735; 84443; 84484; 85025; 87086; 87186; 93010; 93306; 93880; 99222; 99232; 99233; 99239; G0378; J1815; J3475; J3490

== ENCOUNTER 2025-04-05 11:04 | Outpatient (REF) | payer MEDICARE, SELFPAY ==
[2025-04-06 12:31] LABS: Glucose Negative (Negative)
[2025-04-06 12:32] LABS: RBC 0-2 HPF (0-2); WBC >50 HPF (0-5)
== END 2025-04-05 11:05 | disposition home or self-care (01) ==
LOC: LBN 11:04
PROVIDERS: PCP Family Medicine; Visit Provider Family Medicine
DX: N39.0 Urinary tract infection, site not specified (principal)
CPT/HCPCS: 87077; 81003; 81015; 87086; 87186

== ENCOUNTER 2025-04-10 00:09 | Outpatient (CLI) | payer MEDICARE, SELFPAY ==
[2025-04-10 14:56] LABS: Abs Immature Grans 0.03 10^3/uL (0.0-0.06); HCT 38.7 % (36.0-46.0); HGB 12.2 g/dL (11.2-15.7); Immature Grans % 0.3 %; MCH 25.7 pg (27.0-33.0); MCHC 31.5 % (32.0-36.0); MCV 82 fL (80-95); MPV 10.2 fL (8.0-11.0); Platelet Count 388 10^3/uL (130-400); RBC 4.74 10^6/uL (3.93-5.22); RDW 15.1 % (11.7-14.6); RDW-SD 45.6 fL; WBC 9.11 10^3/uL (4.4-10.8)
[2025-04-10 15:59] LABS: ALT 23 U/L (14-59); AST 21 U/L (15-37); Albumin 3.8 g/dL (3.4-5.0); Alkaline Phosphatase 59 U/L (46-116); Anion Gap 13.3 mmol/L (3-11); BUN 24 mg/dL (7-18); Bilirubin, Total 0.3 mg/dL (0.2-1.0); CO2 22.7 mmol/L (21.0-32.0); Calcium 10.5 mg/dL (8.5-10.1); Chloride 101 mmol/L (98-107); Estimated GFR 43.69 (mL/min/1.73m2); Glucose 167 mg/dL (74-106); Magnesium 1.9 mg/dL (1.8-2.4); Potassium 4.5 mmol/L (3.5-5.1); Sodium 137 mmol/L (136-145); Total Protein 7.5 g/dL (6.4-8.2)
[2025-04-10 16:58] LABS: Iron 41 ug/dL (50-170); Total Iron Binding Capacity 346 ug/dL (250-450)
== END 2025-04-10 00:10 | disposition home or self-care (01) ==
LOC: LBO 00:09
PROVIDERS: PCP Family Medicine; Visit Provider Nurse Practitioner Family
DX: D64.9 Anemia, unspecified (principal); E11.69 Type 2 diabetes mellitus with other specified complication; Z79.4 Long term (current) use of insulin; E21.3 Hyperparathyroidism, unspecified
CPT/HCPCS: 36415; 80053; 83540; 83550; 83735; 83970; 85025